=== PATIENT | female | born 1960 | race Caucasian/White ===

== ENCOUNTER 2018-04-25 13:17 | Inpatient (IN) | payer MEDICAID ==
[~2018-04-25] VITALS: Ht 165.1 cm; Wt 84.5 kg
[2018-04-25] MEDS ORDERED: ONDANSETRON 4 MG INJ IV STA (13:20)
[2018-04-25] MEDS ORDERED: morphine 4 MG/ML VIAL IV STA (13:20)
[2018-04-25 13:34] VITALS: Ht 165.1 cm; Wt 84.5 kg
--- NOTE | 2018-04-25 13:38 | ERD ---
ER Documentation Chief Complaint Chief Complaint lower back pain and bilaterial leg pain HPI 58-year-old woman referred here by PMD for further imaging and evaluation of mid and low back pain. Patient has recent diagnosis of metastatic breast carcinoma and suspicion is for metastasis to the lumbar spine. Patient states she has had 3 months of pain but it has been getting worse over the last 1 week. She denies fevers or chills, no cough, no calf or leg swelling, no vomiting or diarrhea, no complaints of chest pain. ROS All systems reviewed and are negative except as per history of present illness. Allergies Allergies: Coded Allergies: No Known Allergy (Unverified , 04/25/18) PMhx/Soc Metastatic breast CA FmHx Family History: No diabetes Physical Exam Vitals Vital Signs Date Temp Pulse Resp B/P (MAP) Pulse Ox O2 O2 Flow FiO2 Time Delivery Rate 04/25/18 98.2 102 22 133/91 99 13:34 (105) Physical Exam Const: Moderate discomfort, afebrile Head: Atraumatic Eyes: Normal Conjunctiva ENT: Normal External Ears, Nose and Mouth. Neck: Full range of motion. No meningismus. Resp: Clear to auscultation bilaterally Cardio: Regular rate and rhythm, no murmurs Abd: Soft, non tender, non distended. Normal bowel sounds Skin: No petechiae or rashes Back: No midline or flank tenderness Ext: No cyanosis, or edema Neur: Awake and alert x3, no focal deficits or facial asymmetry, pupils equal round reactive to light Psych: Normal Mood and Affect Result Diagram: 04/25/18 1330 04/25/18 1330 Results 24 hrs Laboratory Tests Test 04/25/18 13:30 White Blood Count 10.4 10^3/ul Red Blood Count 3.73 10^6/ul Hemoglobin 11.4 g/dl Hematocrit 34.6 % Mean Corpuscular Volume 92.8 fl Mean Corpuscular Hemoglobin 30.6 pg Mean Corpuscular Hemoglobin Concent 32.9 g/dl Red Cell Distribution Width 13.3 % Platelet Count 345 10^3/UL Mean Platelet Volume 9.0 fl Immature Granulocytes % 0.600 % Neutrophils % 65.9 % Lymphocytes % 19.8 % Monocytes % 11.2 % Eosinophils % 1.4 % Basophils % 1.1 % Nucleated Red Blood Cells % 0.2 /100WBC Immature Granulocytes # 0.060 10^3/ul Neutrophils # 6.9 10^3/ul Lymphocytes # 2.1 10^3/ul Monocytes # 1.2 10^3/ul Eosinophils # 0.2 10^3/ul Basophils # 0.1 10^3/ul Nucleated Red Blood Cells # 0.0 10^3/ul Prothrombin Time 13.9 Sec Prothrombin Time Ratio 1.1 INR International Normalized Ratio 1.06 Activated Partial Thromboplast Time 38.8 Sec Sodium Level 141 mmol/L Potassium Level 4.0 mmol/L Chloride Level 105 mmol/L Carbon Dioxide Level 22 mmol/L Anion Gap 14 Blood Urea Nitrogen 12 mg/dl Creatinine 0.69 mg/dl Est Glomerular Filtrat Rate mL/min > 60 mL/min Glucose Level 105 mg/dl Calcium Level 9.0 mg/dl Total Bilirubin 0.3 mg/dl Direct Bilirubin 0.00 mg/dl Indirect Bilirubin 0.3 mg/dl Aspartate Amino Transf (AST/SGOT) 61 IU/L Alanine Aminotransferase (ALT/SGPT) 35 IU/L Alkaline Phosphatase 231 IU/L Troponin I < 0.012 ng/ml Total Protein 6.8 g/dl Albumin 3.6 g/dl Globulin 3.20 g/dl Albumin/Globulin Ratio 1.12 Lipase 81 U/L Current Medications Medications Dose Sig/Diana Start Time Status Last (Trade) Ordered Route PRN Stop Time Admin Dose Reason Admin Morphine 4 mg ONCE STAT 04/25/18 DC 04/25/18 Sulfate IV 13:20 13:43 (morphine) 04/25/18 13:23 Ondansetron 4 mg ONCE STAT 04/25/18 DC 04/25/18 HCl (Zofran IV 13:20 13:43 Inj) 04/25/18 13:23 Sodium 1,000 ml @ Q1H ONCE 04/25/18 DC 04/25/18 Chloride 1,000 mls/hr IV 14:00 13:43 04/25/18 14:59 Procedures/MDM IV line was established patient was placed on hospital monitor rhythm strip revealed a sinus tachycardia at 110 bpm with upright P and T waves. Patient was afebrile EKG performed, read by me revealed a sinus tachycardia at 102 bpm, normal axis, narrow QRS complex, no concerning ST elevations or depressions noted I administered 1 L normal saline IV, morphine 4 mg IV, Zofran 4 mg IV. CBC and electrolytes are normal, liver function tests normal, troponin negative. Patient's pain improved while here although she has continued pain and she will be admitted for continued pain management and MRI with contrast of the thoracic and lumbar spine. Patient admitted to [facility] Diagnosis: Primary Impression: Metastatic breast carcinoma Additional Impression: Intractable pain Condition: CANDICE Mendez MD Apr 25, 2018 13:38
[2018-04-25] MEDS ORDERED: SOD CHLORIDE 0.9% 1,000 ML IV ONE (14:00)
--- NOTE | 2018-04-25 17:11 | CONS ---
Date/Time of Note Date/Time of Note DATE: 04/25/18 TIME: 17:10 Assessment/Plan Assessment/Plan Chief Complaint/Hosp Course METASTATIC BREAST Cancer ( PRIMARY IS IN THE L BREAST ) with MULTIPLE BONY METS, PULMONARY METS SEVERE T-L SPINE PAIN WITH DIFFICULTIES TO AMBULATE OBTAIN MRI T-L SPINE CONSIDER STEROIDS Obesity. Weight loss 60 pounds during the last 2 years by diet PMS. Myopia. Anemia chronic disease. Anxiety disorder. Posttraumatic stress disorder. 1Pain in the left forearm with a history of fracture of ulna and radius. Tachycardia Incomplete data Consultation Date/Type/Reason Admit Date/Time Date of Consultation: Apr 25, 2018 Type of Consultation: HEMEON Reason for Consultation METASTATIC BREAST CANCER PAIN Requesting Provider: RUSS JEROME MD Hx of Present Illness The pt is a 58 yo female with new diagnosed metastatic breast cancer Pt presented with L breast mass, wt loss, bony pain She underwent L breast mass BX by Dr Meneses which came as invasive ductal carcinoma one day [employer] Pt came to my office with intractable bony pain and was not able to walk. [facility] ambulance to be admitted for further w-up and treatment. According to her she was under the care of family physician for the last 3 years and was constantly evaluated About 10 days ago she felt pain in the interscapular area in the lumbosacral area which is very strong reaching to the 9-10/10 with a scale of 10/10. Pain is not controlled until she received the IV morphine. She underwent outpt CT CAT- which revealed large L breast mass and severe bony dis and pulm mets ALL info was send to the hospital ROS Subjective hx not possible: pt critical Constitutional: fatigue, nausea, poor po, weight change (She lost almost 60 pounds during the last 2 years mainly by eating less.); No no complaints, No improved, No chills, No diaphoresis, No disoriented, No febrile, No other Eyes: visual change (Decreased vision myopia), other; No no complaints, No pain, No discharge, No redness ENT: No no complaints, No bleeding, No pain, No congestion, No discharge, No dysphagia, No sore throat, No other Respiratory: shortness of breath; No no complaints, No pain, No cough, No pleuritic pain, No sputum, No wheezing, No other Cardiovascular: chest pain, lightheadedness, orthopenea, palpitations; No no complaints, No edema, No paroxysmal nocturnal dyspnea, No other Gastrointestinal: flatus, nausea, passing stool; No no complaints, No pain, No blood, No constipation, No decreased appetite, No diarrhea, No vomiting, No other Genitourinary: No no complaints, No bleeding, No dysuria, No discharge, No flank pain, No hematuria, No other Musculoskeletal: back pain, bone/joint pain, neck pain; No no complaints, No restricted range of motion, No swelling, No other Skin: pruritis; No no complaints, No bruising, No erythema, No laceration, No rash, No skin lesions, No other Neurologic: headache; No no complaints, No confusion, No dizziness, No focal-weakness, No syncope, No seizure, No other Endocrine: No no complaints, No polyuria, No polydypsia, No dry skin, No temp intolerance, No weight change, No other Lymphatic: No no complaints, No adenopathy, No tender nodes, No lymphadema, No other Immunologic: No no complaints, No immunodeficiency, No pruritis, No rhinitis, No urticaria, No other PMH/Family/Social PMH/Family/Social Past Medical History Medical History: GERD, high cholesterol, hypertension, other (Fracture of the left forearm.) Coded Allergies: No Known Allergy (Unverified , 04/25/18) Past Surgical History Past Surgical Hx: no surgical history Social History Alcohol Use: none Smoking Status: Never smoker Drug Use: none Social History Smoking Status: Never smoker Exam/Review of Systems Vital Signs Vitals Vital Signs Date Temp Pulse Resp B/P (MAP) Pulse Ox O2 O2 Flow FiO2 Time Delivery Rate 04/25/18 98.2 102 22 133/91 99 13:34 (105) Exam Constitutional: alert, oriented, well developed, distress, frail; No non-verbal, No other Psych: anxiety, depression; No no complaints, No nl mood/affect, No confusion, No suicidal, No other Head: normocephalic, atraumatic; No lacerations, No hematomas, No other Eyes: EOMI, nl lids, PERRL; No nl conjunctiva, No nl sclera, No icteric, No fundi, disc, No other ENMT: tympanic membranes; No nl external ears & nose, No nl lips & teeth, No nl nasal mucosa & septum, No mucosa pink and moist, No intubated, No other Neck: supple, non-tender, jvd, bruits; No masses, No thyromegaly, No nuchal rigidity, No other Respiratory: clear to auscultation, normal air movement, crackles/rales, diminished breath sounds, respirations; No congested cough, No intercostal retraction, No labored breathing, No tactile fremitus, No wheezing, No other Cardiovascular: regular rate and rhythm, bruits, jugular venous distention (JVD), systolic murmur; No nl pulses, No diastolic murmur, No edema, No gallop, No irregular rhythm, No murmurs/extra sounds, No rub, No S3, No S4, No other Gastrointestinal: soft, non-tender, bowel sounds, distended, hepatomegaly, other (Obesity with thick fatty layer of the anterior abdominal wall with no rebound.); No nl liver, spleen, No ascites, No firm, No mass, No rebound or guarding, No splenomegaly, No surgical scars, No tender Genitourinary - Female: nl adnexae, nl external genitalia, CVA tenderness; No CMT, No uterus, No other Musculoskeletal: joint tenderness, muscle tone, muscle weakness, spine non-ten dawna (Severe tenderness of the intrascapular area lumbosacral area with great difficulty to get up to move. 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; No nl mental status, No nl speech, No nl strength, No confused, No DTR's symmetric, No focal weakness, No lethargic, No numbness, No reflexes, No unresponsive, No other Skin: nl turgor; No rash or lesions, No diaphoresis, No ecchymosis, No laceration, No puncture, No other Lymph: No nl lymph nodes, No enlarged, No nontender, No other Results Result Diagram: 04/25/18 1330 04/25/18 1330 Results 24 hrs Laboratory Tests Test 04/25/18 13:30 White Blood Count 10.4 Red Blood Count 3.73 L Hemoglobin 11.4 L Hematocrit 34.6 L Mean Corpuscular Volume 92.8 Mean Corpuscular Hemoglobin 30.6 Mean Corpuscular Hemoglobin Concent 32.9 Red Cell Distribution Width 13.3 Platelet Count 345 Mean Platelet Volume 9.0 Immature Granulocytes % 0.600 H Neutrophils % 65.9 Lymphocytes % 19.8 Monocytes % 11.2 H Eosinophils % 1.4 Basophils % 1.1 Nucleated Red Blood Cells % 0.2 H Immature Granulocytes # 0.060 H Neutrophils # 6.9 Lymphocytes # 2.1 Monocytes # 1.2 H Eosinophils # 0.2 Basophils # 0.1 Nucleated Red Blood Cells # 0.0 Prothrombin Time 13.9 Prothrombin Time Ratio 1.1 INR International Normalized Ratio 1.06 Activated Partial Thromboplast Time 38.8 H Sodium Level 141 Potassium Level 4.0 Chloride Level 105 Carbon Dioxide Level 22 Anion Gap 14 H Blood Urea Nitrogen 12 Creatinine 0.69 Est Glomerular Filtrat Rate mL/min > 60 Glucose Level 105 Calcium Level 9.0 Total Bilirubin 0.3 Direct Bilirubin 0.00 Indirect Bilirubin 0.3 Aspartate Amino Transf (AST/SGOT) 61 H Alanine Aminotransferase (ALT/SGPT) 35 Alkaline Phosphatase 231 H Troponin I < 0.012 Total Protein 6.8 Albumin 3.6 Globulin 3.20 Albumin/Globulin Ratio 1.12 Lipase 81 DES DUNAWAY MD Apr 25, 2018 17:11
[2018-04-25 18:50] VITALS: BP 124/76; PULSE 111; RESP 18
[2018-04-25] MEDS: morphine 2 MG INJ IV PRN ×2 (19:01→23:13)
[2018-04-25 19:35] VITALS: BP 129/72; PULSE 100; RESP 20
[2018-04-25] MEDS: DEXAMETHASONE 4 MG/ML 1 ML INJ IV SCH (21:28)
[2018-04-25] MEDS: ANASTROZOLE 1 MG TAB PO SCH (21:35)
--- NOTE | 2018-04-25 23:23 | HP ---
Date/Time of Note Date/Time of Note DATE: 04/25/18 TIME: 23:06 Assessment/Plan VTE Prophylaxis Risk score (from Nsg)>0 risk: 2 Pharmacological prophylaxis: LMWH Lines/Catheters IV Catheter Type (from Nrsg): [place] [employer] line still needed: No Urinary Cath still in place: No Reason Cath still needed: urinary retention Assessment/Plan Assessment/Plan 1. Cancer of the left and left breast. Exact type at this time unknown. 2. Severe pain in the interscapular and lumbar sacral area most probably metastatic lesion possible femoral fracture. patologic? 3. Obesity. 4. Weight loss 60 pounds during the last 2 years by diet 5. PMS. 6. Myopia. 7. Anemia chronic disease. 8. Anxiety disorder. 9. Posttraumatic stress disorder. 10. Pain in the left forearm with a history of fracture of ulna and radius. 11. Tachycardia 12. Incomplete data HPI/ROS Admit Date/Time Admit Date/Time This 58 years old white female with about 10-day history of severe upper to lower back pain. Was diagnosed of having a breast cancer from the left side of the breast about 2-3 months ago proved by biopsy. According to her she was under the care of family physician for the last 3 years and was constantly evaluated but somehow tube was found only recently. About 10 days ago with no recent that she can point on she felt pain in the interscapular area in the lumbosacral area which is very strong reaching to the 9-10/10 with a scale of 10/10. I received a call from oncologist Dr. Palomino was placed to the patient as attending physician. All information taken from patient who is very emotional about the events with her happening now in [place] and [facility]. A conversation with interrupted multiple times when she was becoming very emotional tearful but her grandchildren are in the [facility] she is unable to see them. Pain is not controlled until she received the IV morphine. ROS Subjective hx not possible: pt critical Constitutional: fatigue, nausea, poor po, weight change (She lost almost 60 pounds during the last 2 years mainly by eating less.); No no complaints, No improved, No chills, No diaphoresis, No disoriented, No febrile, No other Eyes: visual change (Decreased vision myopia), other; No no complaints, No pain, No discharge, No redness ENT: No no complaints, No bleeding, No pain, No congestion, No discharge, No dysphagia, No sore throat, No other Respiratory: shortness of breath; No no complaints, No pain, No cough, No pleuritic pain, No sputum, No wheezing, No other Cardiovascular: chest pain, lightheadedness, orthopenea, palpitations; No no complaints, No edema, No paroxysmal nocturnal dyspnea, No other Gastrointestinal: flatus, nausea, passing stool; No no complaints, No pain, No blood, No constipation, No decreased appetite, No diarrhea, No vomiting, No other Genitourinary: No no complaints, No bleeding, No dysuria, No discharge, No flank pain, No hematuria, No other Musculoskeletal: back pain, bone/joint pain, neck pain; No no complaints, No restricted range of motion, No swelling, No other Skin: pruritis; No no complaints, No bruising, No erythema, No laceration, No rash, No skin lesions, No other Neurologic: headache; No no complaints, No confusion, No dizziness, No focal-weakness, No syncope, No seizure, No other Endocrine: No no complaints, No polyuria, No polydypsia, No dry skin, No temp intolerance, No weight change, No other Lymphatic: No no complaints, No adenopathy, No tender nodes, No lymphadema, No other Immunologic: No no complaints, No immunodeficiency, No pruritis, No rhinitis, No urticaria, No other PMH/Family/Social Past Medical History Medical History: GERD, high cholesterol, hypertension, other (Fracture of the left forearm.) Coded Allergies: No Known Allergy (Unverified , 04/25/18) Past Surgical History Past Surgical Hx: no surgical history Social History Alcohol Use: none Smoking Status: Never smoker Drug Use: none Exam/Review of Systems Vital Signs Vitals Vital Signs Date Temp Pulse Resp B/P (MAP) Pulse Ox O2 O2 Flow FiO2 Time Delivery Rate 04/25/18 98.0 100 20 129/72 99 Room Air 19:35 (91) Exam Constitutional: alert, oriented, well developed, distress, frail; No non-verbal, No other Psych: anxiety, depression; No no complaints, No nl mood/affect, No confusion, No suicidal, No other Head: normocephalic, atraumatic; No lacerations, No hematomas, No other Eyes: EOMI, nl lids, PERRL; No nl conjunctiva, No nl sclera, No icteric, No fundi, disc, No other ENMT: tympanic membranes; No nl external ears & nose, No nl lips & teeth, No nl nasal mucosa & septum, No mucosa pink and moist, No intubated, No other Neck: supple, non-tender, jvd, bruits; No masses, No thyromegaly, No nuchal rigidity, No other Respiratory: clear to auscultation, normal air movement, crackles/rales, diminished breath sounds, respirations; No congested cough, No intercostal retraction, No labored breathing, No tactile fremitus, No wheezing, No other Cardiovascular: regular rate and rhythm, bruits, jugular venous distention (JVD), systolic murmur; No nl pulses, No diastolic murmur, No edema, No gallop, No irregular rhythm, No murmurs/extra sounds, No rub, No S3, No S4, No other Gastrointestinal: soft, non-tender, bowel sounds, distended, hepatomegaly, other (Obesity with thick fatty layer of the anterior abdominal wall with no rebound.); No nl liver, spleen, No ascites, No firm, No mass, No rebound or guarding, No splenomegaly, No surgical scars, No tender Genitourinary - Female: nl adnexae, nl external genitalia, CVA tenderness; No CMT, No uterus, No other Musculoskeletal: joint tenderness, muscle tone, muscle weakness, spine non- tender (Severe tenderness of the intrascapular area lumbosacral area with great difficulty to get up to move. 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; No nl mental status, No nl speech, No nl strength, No confused, No DTR's symmetric, No focal weakness, No lethargic, No numbness, No reflexes, No unresponsive, No other Skin: nl turgor; No rash or lesions, No diaphoresis, No ecchymosis, No laceration, No puncture, No other Lymph: No nl lymph nodes, No enlarged, No nontender, No other Medications Medications Current Medications Morphine Sulfate (morphine) 2 mg Q4 PRN IV PAIN Last administered on 04/25/18at 19:01; Admin Dose 2 MG; Start 04/25/18 at 18:00 Anastrozole (Arimidex) 1 mg DAILY PO Last administered on 04/25/18at 21:35; Admin Dose 1 MG; Start 04/25/18 at 19:00 Dexamethasone (Decadron) 4 mg Q8 IV Last administered on 04/25/18at 21:28; Admin Dose 4 MG; Start 04/25/18 at 22:00 Results Result Diagram: 04/25/18 1330 04/25/18 1330 RUSS JEROME MD Apr 25, 2018 23:21
[2018-04-25] MEDS ORDERED: ZOLPIDEM 5 MG TAB PO PRN (23:30)
[2018-04-26 02:00] VITALS: BP 134/79; PULSE 100; RESP 20
[2018-04-26] MEDS: DEXAMETHASONE 4 MG/ML 1 ML INJ IV SCH ×3 (06:40→21:23)
[2018-04-26] MEDS: morphine 2 MG INJ IV PRN ×3 (06:40→19:19)
[2018-04-26 07:32] VITALS: BP 134/78; PULSE 96; RESP 18
--- NOTE | 2018-04-26 09:30 | PN ---
Date/Time of Note Date/Time of Note DATE: 04/26/18 TIME: 09:26 Assessment/Plan VTE Prophylaxis Risk score (from Nsg)>0 risk: 2 Pharmacological prophylaxis: LMWH Lines/Catheters IV Catheter Type (from Nrsg): Saline Lock Urinary Cath still in place: No Assessment/Plan Assessment/Plan 1. Cancer of the left and left breast. Exact type at this time unknown. 2. Severe pain in the interscapular and lumbar sacral area most probably metastatic lesion possible femoral fracture. patologic fracture of T9 with 60% of loss of height. Neurosurgical consult planned. 3. Obesity. 4. Weight loss 60 pounds during the last 2 years by diet 5. PMS. 6. Myopia. 7. Anemia chronic disease. 8. Anxiety disorder. 9. Posttraumatic stress disorder. 10. Pain in the left forearm with a history of fracture of ulna and radius. 11. Tachycardia 12. Incomplete data Subjective 24 Hr Interval Summary Free Text/Dictation Back pain persists. Slept well after morphine sulfate. Every movement is exacerbating pain is severely. Mri reviewed. T9 fracture with 60% of the loss of height acknowledged. Multiple metastasis. We discussed with Dr. Palomino. Neurosurgical consult. Subjective hx not possible: pt critical Constitutional: poor po; No no complaints, No improved, No chills, No diaphoresis, No disoriented, No febrile, No requiring IVF, No requiring O2, No other Eyes: discharge; No no complaints, No pain, No redness, No visual change, No other ENT: No no complaints, No bleeding, No pain, No congestion, No discharge, No dysphagia, No sore throat, No other Respiratory: No no complaints, No pain, No cough, No pleuritic pain, No shortness of breath, No sputum, No wheezing, No other Cardiovascular: chest pain, palpitations; No no complaints, No edema, No lightheadedness, No orthopenea, No paroxysmal nocturnal dyspnea, No other Gastrointestinal: constipation, decreased appetite; No no complaints, No pain, No blood, No diarrhea, No flatus, No nausea, No passing stool, No vomiting, No other Genitourinary: No no complaints, No bleeding, No dysuria, No discharge, No flank pain, No hematuria, No other Musculoskeletal: back pain, bone/joint pain, neck pain; No no complaints, No restricted range of motion, No swelling, No other Neurologic: No no complaints, No confusion, No dizziness, No focal-weakness, No headache, No syncope, No seizure, No other Psychological: anxiety, depression; No no complaints, No nl mood/affect, No confusion, No suicidal, No other Exam/Review of Systems Vital Signs Vitals Vital Signs Date Temp Pulse Resp B/P (MAP) Pulse Ox O2 O2 Flow FiO2 Time Delivery Rate 04/26/18 98.3 96 18 134/78 99 Room Air 07:32 (96) Exam Constitutional: alert, oriented, well developed, distress, frail, obese; No non-verbal, No other Psych: anxiety, depression; No no complaints, No nl mood/affect, No confusion, No suicidal, No other Head: normocephalic, atraumatic; No lacerations, No hematomas, No other Eyes: EOMI, nl lids, PERRL; No nl conjunctiva, No nl sclera, No icteric, No fundi, disc, No other ENMT: No nl external ears & nose, No nl lips & teeth, No nl nasal mucosa & septum, No mucosa pink and moist, No intubated, No tympanic membranes, No other Neck: supple; No non-tender, No jvd, No bruits, No masses, No thyromegaly, No nuchal rigidity, No other Respiratory: diminished breath sounds; No clear to auscultation, No normal air movement, No congested cough, No crackles/rales, No intercostal retraction, No labored breathing, No respirations, No tactile fremitus, No wheezing, No other Cardiovascular: bruits, edema; No regular rate and rhythm, No nl pulses, No diastolic murmur, No gallop, No irregular rhythm, No jugular venous distention (JVD), No murmurs/extra sounds, No rub, No systolic murmur, No S3, No S4, No other Gastrointestinal: soft, nl liver, spleen, distended; No non-tender, No ascites, No bowel sounds, No firm, No hepatomegaly, No mass, No rebound or guarding, No splenomegaly, No surgical scars, No tender, No other Musculoskeletal: joint tenderness, muscle tone, muscle weakness; No nl extremities to inspection, No nl gait and stance, No range of motion, No spine non-tender, No swelling, No other Extremities: normal pulses, edema; No calf tenderness, No cyanosis, No clubbing, No pitting pedal edema, No palpable cord, No tenderness, No other 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: GUARD IMMIGRATION 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, confused, numbness; No nl mental status, No nl speech, No nl strength, No DTR's symmetric, No focal weakness, No lethargic, No reflexes, No unresponsive, No other Skin: nl turgor Medications Medications Current Medications Morphine Sulfate (morphine) 2 mg Q4 PRN IV PAIN Last administered on 04/26/18at 06:40; Admin Dose 2 MG; Start 04/25/18 at 18:00 Anastrozole (Arimidex) 1 mg DAILY PO Last administered on 04/25/18at 21:35; Admin Dose 1 MG; Start 04/25/18 at 19:00 Dexamethasone (Decadron) 4 mg Q8 IV Last administered on 04/26/18at 06:40; Admin Dose 4 MG; Start 04/25/18 at 22:00 Zolpidem Tartrate (Ambien) 10 mg HS PRN PO INSOMNIA; Start 04/25/18 at 23:30 Lorazepam (Ativan) 0.5 mg TID PRN PO ANXIETY; Start 04/25/18 at 23:30 Results Result Diagram: 04/26/18 0438 04/26/188 Results 24 hrs Laboratory Tests Test 04/25/18 13:30 04/25/18 21:27 04/26/18 04:37 04/26/18 04:38 White Blood Count 10.4 7.7 # Red Blood Count 3.73 L 3.56 L Hemoglobin 11.4 L 10.9 L Hematocrit 34.6 L 33.8 L Mean Corpuscular 92.8 94.9 Volume Mean Corpuscular 30.6 30.6 Hemoglobin Mean Corpuscular 32.9 32.2 Hemoglobin Concent Red Cell 13.3 13.4 Distribution Width Platelet Count 345 332 Mean Platelet Volume 9.0 9.3 Immature 0.600 H 1.000 H Granulocytes % Neutrophils % 65.9 81.0 H Lymphocytes % 19.8 13.9 L Monocytes % 11.2 H 3.0 Eosinophils % 1.4 0.3 Basophils % 1.1 0.8 Nucleated Red Blood 0.2 H 0.0 Cells % Immature 0.060 H 0.080 H Granulocytes # Neutrophils # 6.9 6.2 Lymphocytes # 2.1 1.1 Monocytes # 1.2 H 0.2 L Eosinophils # 0.2 0.0 Basophils # 0.1 0.1 Nucleated Red Blood 0.0 0.0 Cells # Prothrombin Time 13.9 Prothrombin Time 1.1 Ratio INR International 1.06 Normalized Ratio Activated 38.8 H Partial Thromboplast Time Sodium Level 141 143 Potassium Level 4.0 4.9 Chloride Level 105 109 Carbon Dioxide Level 22 23 Anion Gap 14 H 11 Blood Urea Nitrogen 12 11 Creatinine 0.69 0.56 Est Glomerular > 60 > 60 Filtrat Rate mL/min Glucose Level 105 165 Calcium Level 9.0 8.6 Total Bilirubin 0.3 Direct Bilirubin 0.00 Indirect Bilirubin 0.3 Aspartate Amino 61 H Transf (AST/SGOT) Alanine 35 Aminotransferase (AL T/SGPT) Alkaline Phosphatase 231 H Troponin I < 0.012 Total Protein 6.8 Albumin 3.6 Globulin 3.20 Albumin/Globulin 1.12 Ratio Lipase 81 Bedside Glucose 132 Iron Level 30 L Total Iron Binding 226 L Capacity Percent Iron 13 L Saturation Hemoglobin A1c 5.7 Magnesium Level 1.9 Vitamin D 31.7 1,25-Dihydroxy Thyroid Stimulating 0.710 Hormone (TSH) Test 04/26/18 08:20 Bedside Glucose 134 RUSS JEROME MD Apr 26, 2018 09:30
[2018-04-26] MEDS: ENOXAPARIN 40 MG/0.4 ML SYG SC SCH (09:52)
[2018-04-26] MEDS: ANASTROZOLE 1 MG TAB PO SCH (09:52)
--- NOTE | 2018-04-26 13:58 | RADRPT ---
Echocardiogram Report Patient Name: HANG VILLEDA Gender: Female Date: 1960 Study Date: 26-Apr-2018 Silk Screener: Vikash Perkins [facility] Location: [address] Ref. Physician: RUSS JEROME Quality: Adequate Procedures: Transthoracic echocardiogram with complete 2D, M-Mode, and doppler examination. Indications: Tachycardia. 2D/M Mode Doppler Measurement Value Normal Ranges Measurement Value Normal Ranges LVIDd 2D 3.6 3.5 - 5.6 cm AV Peak Je 1.5 m/sec LVIDs 2D 2.3 2.1 - 4.1 cm AV Peak PG 9.0 mmHg FS 2D 34.2 % LVOT Peak Je 1.4 m/sec LVPWd 2D 1.0 0.6 - 1.1 cm LVOT Peak PG 8.0 mmHg IVSd 2D 1.4 0.6 - 1.1 cm MV E Peak Je 0.6 m/sec IVS/LVPW 2D 1.4 MV A Peak Je 0.7 m/sec AoR Diam 2D 2.9 2.0 - 3.7 cm MV E/A 0.8 LA/Ao 2D 1 0 - 1 MV Decel Time 127 msec EDV 2D 45.5 cm3 MV E/A 0.8 ESV 2D 13.0 cm3 TR Peak Je 2.4 m/sec LA Dimen 2D 3.1 2.3 - 4.0 cm TR Peak PG 22.0 mmHg RVSP 25.0 mmHg Findings Left Ventricle: Normal left ventricular systolic function. Normal left ventricular cavity size. Sigmoid septum. Ejection fraction is visually estimated at 65 - 70 %. Tissue Doppler/Mitral Doppler indices are consistent with impaired relaxation (Stage I diastolic dysfunction). Right Ventricle: Normal right ventricular size. Normal right ventricular systolic function. Left Atrium: The left atrium is normal in size. Right Atrium: The right atrium is normal in size. Mitral Valve: Mild mitral leaflet calcification. Mild mitral annular calcification. Trace mitral regurgitation. Aortic Valve: No significant aortic stenosis or insufficiency. Aortic cusps appear mildly calcified. Trace aortic valve regurgitation. Tricuspid Valve: Normal appearance of the tricuspid valve. Estimated peak PA systolic pressure 25 mmHg. There is trace tricuspid regurgitation. Pulmonic Valve: Pulmonic valve not well visualized. There is trace pulmonic regurgitation. Pericardium: Normal pericardium with no significant pericardial effusion. Left pleural effusion seen. Aorta: Normal aortic root. IVC: Normal size and normal respiratory collapse consistent with normal right atrial pressure. Conclusions The left ventricle is normal in size and systolic function. Estimated left ventricular ejection fraction of 65-70%. Grade 1 diastolic dysfunction. Electronically Signed By: Sidney Gutierrez 26-Apr-2018 13:58:10 -0800 Patient Name: HANG VILLEDA Study Date: 26-Apr-2018 [id number]
[2018-04-26 14:09] VITALS: BP 140/84; PULSE 99; RESP 18
[2018-04-26 15:00] VITALS: BP 158/88; PULSE 88; RESP 18
--- NOTE | 2018-04-26 17:35 | CONS ---
Date/Time of Note Date/Time of Note DATE: 04/26/18 TIME: 17:31 Assessment/Plan Assessment/Plan Chief Complaint/Hosp Course Assessment: Sinus tachycardia - appears physiologic secondary to pain Hypertension Metastatic breast cancer Back pain - metastatic disease to the spine Recommendations: -resume on outpatient benazepril 5mg daily, adjust as needed -follow up oncology Consultation Date/Type/Reason Admit Date/Time This 58 years old white female with about 10-day history of severe upper to lower back pain. Was diagnosed of having a breast cancer from the left side of the breast about 2-3 months ago proved by biopsy. According to her she was under the care of family physician for the last 3 years and was constantly evaluated but somehow tube was found only recently. About 10 days ago with no recent that she can point on she felt pain in the interscapular area in the lumbosacral area which is very strong reaching to the 9-10/10 with a scale of 10/10. I received a call from oncologist Dr. Palomino was placed to the patient as attending physician. All information taken from patient who is very emotional about the events with her happening now in [place] and [facility]. A conversation with interrupted multiple times when she was becoming very emo tional tearful but her grandchildren are in the [place] she is unable to see them. Pain is not controlled until she received the IV morphine. Type of Consultation: Cardiology Reason for Consultation tachycardia Requesting Provider: RUSS JEROME MD Hx of Present Illness The patient is a 58 year-old female with metastatic breast cancer who presents with back pain. MRI shows metastatic disease to the spine. She is noted to be tachycardia with EKG showing sinus tachycardia. Transthoracic echocardiogram shows normal LVEF 65-70%. 14 point review of systems negative other than per HPI. Past Medical History Medical History: hypertension Family History Significant Family History: no pertinent family hx Social History Alcohol Use: none Smoking Status: Never smoker Drug Use: none Exam/Review of Systems Vital Signs Vitals Vital Signs Date Temp Pulse Resp B/P (MAP) Pulse Ox O2 O2 Flow FiO2 Time Delivery Rate 04/26/18 98.8 88 18 158/88 100 15:00 (111) 04/26/18 Room Air 14:09 Exam Constitutional: alert, well developed Psych: no complaints, nl mood/affect Head: normocephalic, atraumatic Eyes: nl conjunctiva, nl lids ENMT: nl external ears & nose, nl nasal mucosa & septum Neck: supple, non-tender Respiratory: clear to auscultation, normal air movement Cardiovascular: regular rate and rhythm Gastrointestinal: soft, non-tender Musculoskeletal: nl extremities to inspection Extremities: No cyanosis, No clubbing, No edema 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: nl mental status, nl speech Medications Medications Current Medications Morphine Sulfate (morphine) 2 mg Q4 PRN IV PAIN Last administered on 04/26/18at 13:46; Admin Dose 2 MG; Start 04/25/18 at 18:00 Anastrozole (Arimidex) 1 mg DAILY PO Last administered on 04/26/18 09:52; Admin Dose 1 MG; Start 04/25/18 at 19:00 Dexamethasone (Decadron) 4 mg Q8 IV Last administered on 04/26/18at 13:43; Admin Dose 4 MG; Start 04/25/18 at 22:00 Zolpidem Tartrate (Ambien) 10 mg HS PRN PO INSOMNIA; Start 04/25/18 at 23:30 Lorazepam (Ativan) 0.5 mg TID PRN PO ANXIETY; Start 04/25/18 at 23:30 Enoxaparin Sodium (Lovenox) 40 mg DAILY SC Last administered on 04/26/18at 09:52; Admin Dose 40 MG; Start 04/26/18 at 09:30 Results Result Diagram: 04/26/188 04/26/18437 Results 24 hrs Laboratory Tests Test 04/25/18 21:27 04/26/18 04:37 04/26/18 04:38 04/26/18 08:20 Bedside Glucose 132 134 Iron Level 30 L Total Iron Binding 226 L Capacity Percent Iron 13 L Saturation White Blood Count 7.7 # Red Blood Count 3.56 L Hemoglobin 10.9 L Hematocrit 33.8 L Mean Corpuscular 94.9 Volume Mean Corpuscular 30.6 Hemoglobin Mean Corpuscular 32.2 Hemoglobin Concent Red Cell 13.4 Distribution Width Platelet Count 332 Mean Platelet Volume 9.3 Immature 1.000 H Granulocytes % Neutrophils % 81.0 H Lymphocytes % 13.9 L Monocytes % 3.0 Eosinophils % 0.3 Basophils % 0.8 Nucleated Red Blood 0.0 Cells % Immature 0.080 H Granulocytes # Neutrophils # 6.2 Lymphocytes # 1.1 Monocytes # 0.2 L Eosinophils # 0.0 Basophils # 0.1 Nucleated Red Blood 0.0 Cells # Sodium Level 143 Potassium Level 4.9 Chloride Level 109 Carbon Dioxide Level 23 Anion Gap 11 Blood Urea Nitrogen 11 Creatinine 0.56 Est Glomerular > 60 Filtrat Rate mL/min Glucose Level 165 Hemoglobin A1c 5.7 Calcium Level 8.6 Magnesium Level 1.9 Vitamin D 31.7 1,25-Dihydroxy Thyroid Stimulating 0.710 Hormone (TSH) Test 04/26/18 12:37 Bedside Glucose 140 NEGRITA GARLAND MD Apr 26, 2018 17:35
--- NOTE | 2018-04-26 18:00 | CONS ---
Date/Time of Note Date/Time of Note DATE: 04/26/18 TIME: 17:55 Assessment/Plan Assessment/Plan Chief Complaint/Hosp Course METASTATIC BREAST Cancer ( PRIMARY IS IN THE L BREAST ) with MULTIPLE BONY METS, PULMONARY METS SEVERE T-L SPINE PAIN WITH DIFFICULTIES TO AMBULATE MRI T-L SPINE- Diffuse osseous metastatic disease of the visualized thoracic spine (T10 - T12), the entire lumbar spine, sacrum, and bilateral iliac bones. Expansion of the posterior T9 vertebral body resulting in central canal stenosis with AP diameter measuring 8 mm. STARTED ON IV STEROIDS STARTED ON AI YESTERDAY PAIN CONTROL RADONC AND NEUROSURG EVAL Obesity. Weight loss 60 pounds during the last 2 years by diet PMS. Myopia. Anemia chronic disease. Anxiety disorder. Posttraumatic stress disorder. 1Pain in the left forearm with a history of fracture of ulna and radius. Tachycardia Incomplete data Consultation Date/Type/Reason Admit Date/Time Apr 25, 2018 at 14:37 Initial Consult Date 04/25/18 Type of Consultation: HEMEON Requesting Provider: RUSS JEROME MD 24 HR Interval Summary Free Text/Dictation ALL NOTED D/W STAFF D/W DR JEROME, DR BARON AND DR MAXWELL MRI NOTED - STARTED ON STEROIDS Exam/Review of Systems Vital Signs Vitals Vital Signs Date Temp Pulse Resp B/P (MAP) Pulse Ox O2 O2 Flow FiO2 Time Delivery Rate 04/26/18 98.8 88 18 158/88 100 15:00 (111) 04/26/18 Room Air 14:09 Exam Constitutional: alert, oriented, well developed, distress, frail; No non-verbal, No other Psych: anxiety, depression; No no complaints, No nl mood/affect, No confusion, No suicidal, No other Head: normocephalic, atraumatic; No lacerations, No hematomas, No other Eyes: EOMI, nl lids, PERRL; No nl conjunctiva, No nl sclera, No icteric, No fundi, disc, No other ENMT: tympanic membranes; No nl external ears & nose, No nl lips & teeth, No nl nasal mucosa & septum, No mucosa pink and moist, No intubated, No other Neck: supple, non-tender, jvd, bruits; No masses, No thyromegaly, No nuchal rigidity, No other Respiratory: clear to auscultation, normal air movement, crackles/rales, diminished breath sounds, respirations; No congested cough, No intercostal retraction, No labored breathing, No tactile fremitus, No wheezing, No other Cardiovascular: regular rate and rhythm, bruits, jugular venous distention (JVD), systolic murmur; No nl pulses, No diastolic murmur, No edema, No gallop, No irregular rhythm, No murmurs/extra sounds, No rub, No S3, No S4, No other Gastrointestinal: soft, non-tender, bowel sounds, distended, hepatomegaly, other (Obesity with thick fatty layer of the anterior abdominal wall with no rebound.); No nl liver, spleen, No ascites, No firm, No mass, No rebound or guarding, No splenomegaly, No surgical scars, No tender Genitourinary - Female: nl adnexae, nl external genitalia, CVA tenderness; No CMT, No uterus, No other Musculoskeletal: joint tenderness, muscle tone, muscle weakness, spine non- tender (Severe tenderness of the intrascapular area lumbosacral area with great difficulty to get up to move. 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: PRODUCT/INDUSTRY CONSULTANT 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; No nl mental status, No nl speech, No nl strength, No confused, No DTR's symmetric, No focal weakness, No lethargic, No numbness, No reflexes, No unresponsive, No other Skin: nl turgor; No rash or lesions, No diaphoresis, No ecchymosis, No laceration, No puncture, No other Lymph: No nl lymph nodes, No enlarged, No nontender, No other Medications Medications Current Medications Morphine Sulfate (morphine) 2 mg Q4 PRN IV PAIN Last administered on 04/26/18at 13:46; Admin Dose 2 MG; Start 04/25/18 at 18:00 Anastrozole (Arimidex) 1 mg DAILY PO Last administered on 04/26/18at 09:52; Admin Dose 1 MG; Start 04/25/18 at 19:00 Dexamethasone (Decadron) 4 mg Q8 IV Last administered on 04/26/18at 13:43; Admin Dose 4 MG; Start 04/25/18 at 22:00 Zolpidem Tartrate (Ambien) 10 mg HS PRN PO INSOMNIA; Start 04/25/18 at 23:30 Lorazepam (Ativan) 0.5 mg TID PRN PO ANXIETY; Start 04/25/18 at 23:30 Enoxaparin Sodium (Lovenox) 40 mg DAILY SC Last administered on 04/26/18at 09:52; Admin Dose 40 MG; Start 04/26/18 at 09:30 Results Result Diagram: 04/26/1843704/26/18437 Results 24 hrs Laboratory Tests Test 04/25/18 21:27 04/26/18 04:37 04/26/18 04:38 04/26/18 08:20 Bedside Glucose 132 134 Iron Level 30 L Total Iron Binding 226 L Capacity Percent Iron 13 L Saturation White Blood Count 7.7 # Red Blood Count 3.56 L Hemoglobin 10.9 L Hematocrit 33.8 L Mean Corpuscular 94.9 Volume Mean Corpuscular 30.6 Hemoglobin Mean Corpuscular 32.2 Hemoglobin Concent Red Cell 13.4 Distribution Width Platelet Count 332 Mean Platelet Volume 9.3 Immature 1.000 H Granulocytes % Neutrophils % 81.0 H Lymphocytes % 13.9 L Monocytes % 3.0 Eosinophils % 0.3 Basophils % 0.8 Nucleated Red Blood 0.0 Cells % Immature 0.080 H Granulocytes # Neutrophils # 6.2 Lymphocytes # 1.1 Monocytes # 0.2 L Eosinophils # 0.0 Basophils # 0.1 Nucleated Red Blood 0.0 Cells # Sodium Level 143 Potassium Level 4.9 Chloride Level 109 Carbon Dioxide Level 23 Anion Gap 11 Blood Urea Nitrogen 11 Creatinine 0.56 Est Glomerular > 60 Filtrat Rate mL/min Glucose Level 165 Hemoglobin A1c 5.7 Calcium Level 8.6 Magnesium Level 1.9 Vitamin D 31.7 1,25-Dihydroxy Thyroid Stimulating 0.710 Hormone (TSH) Test 04/26/18 12:37 04/26/18 17:23 Bedside Glucose 140 [address] [place] [id number] Radiology Main Line: [phone] DIAGNOSTIC IMAGING REPORT Patient: LEANA VILLEDA : 1960 Age: 58 Sex: F [id number] [id number] DOS: 04/25/18 1334 Ordering MD: CANDICE HERNANDEZ MD Location: [facility] Room/Bed: 410-B PROCEDURE: MR Lumbar Spine with and without contrast CLINICAL INDICATION: Back pain. COMPARISON: Correlated with MRI thoracic spine 04/25/2018. TECHNIQUE: MRI examination of the lumbar spine was obtained utilizing the following sequences: Sagittal and axial T1, axial T2-weighted, sagittal T2 fat saturation, sagittal STIR, and postcontrast sagittal and axial images. The patient received tenth ml of ProHance intravenous contrast without complication. FINDINGS: Segmentation: For this report, the last well formed disc is labeled L5-S1. Alignment: Slight retrospondylolisthesis of L5 on S1. Vertebral bodies: Expansion of the posterior T10 vertebral body with resultant central canal stenosis and AP diameter measuring 8 mm. Refer to MRI thoracic spine dictation of 04/25/2018 for additional details. Bone marrow: Diffuse osseous metastasis of the visualized thoracic spine (T10 - T12), the entire lumbar spine, sacrum, and bilateral iliac bones. Distal cord and conus: Normal. No suspicious enhancement. The conus terminates at L1. Cauda equina: Normal. T12-L1 : There is normal disc height and signal. No disc herniation. There is mild facet arthropathy. No central canal or foraminal narrowing. L1-L2 : There is normal disc height and signal. Trace bulge of the posterior annulus without disc herniation. There is bilateral facet arthropathy. No central canal or foraminal narrowing. L2-L3 : There is normal disc height and signal. No disc herniation. There is bilateral facet arthropathy and ligamentum flavum infolding. No central canal or foraminal narrowing L3-L4 : There is mild disc height loss with preserved disc signal. 2 mm diffuse disc bulge asymmetric to the right foraminal and lateral zones without disc herniation. There is mild lateral facet arthropathy and ligamentum flavum infolding. Mild left lateral recess narrowing secondary to ligamentum flavum infolding and facet arthropathy. without contact of the traversing right L4 nerve root. No central canal stenosis. Moderate left and mild to moderate right foraminal narrowing. L4-L5 : There is normal disc height and signal. Small diffuse disc bulge without herniation. There is bilateral facet arthropathy. Mild left lateral recess narrowing secondary to ligamentum flavum infolding and facet arthropathy. No central canal stenosis. Mild left foraminal narrowing. L5-S1 : There is normal disc height and signal. 2 mm disc unfolding more pronounced to the right of midline secondary to a retrospondylolisthesis of L5 on S1. There is bilateral facet arthropathy. No central canal stenosis. Mod erate right foraminal narrowing secondary to facet arthropathy and 3 mm disc bulge extending into the inferior foramen. Mild left foraminal narrowing. IMPRESSION: 1. Diffuse osseous metastatic disease of the visualized thoracic spine (T10 - T12), the entire lumbar spine, sacrum, and bilateral iliac bones. 2. Expansion of the posterior T9 vertebral body resulting in central canal stenosis with AP diameter measuring 8 mm. Refer to dedicated MRI of the thoracic spine dated 04/25/2018. 3. L3-4: Mild left lateral recess narrowing, moderate left and mild to moderate right foraminal narrowing. 4. L4-5: Mild left lateral recess narrowing, mild left foraminal narrowing. 5. L5-S1: Moderate right mild left foraminal narrowing. RPTAT: HRSR Physician Fadia Date Time Electronically viewed and signed by Physician Fadia on 04/26/2018 03:07 RR/ CC: CANDICE HERNANDEZ MD [phone] [place] [id number] Radiology Main Line: [phone] DIAGNOSTIC IMAGING REPORT Patient: LEANA VILLEDA : 1960 Age: 58 Sex: F MR #: [id number] DOS: 04/25/18 1334 Ordering MD: CANDICE HERNANDEZ MD Location: [facility] [place] Room/Bed: [facility] PROCEDURE: MR thoracic spine with and without contrast. CLINICAL INDICATION: Back pain. TECHNIQUE: The study was performed utilizing a Signa HDxt 3 Johana magnet. The following pulse sequences were obtained: Axial T1, axial T2, sagittal T1, sagittal T2 and sagittal inversion recovery images. After the administration of 10 cc ProHance intravenous contrast, sagittal T1-weighted images with fat saturation and axial T1-weighted images without fat saturation were obtained. Images were reviewed on a PACS workstation. Study is limited by patient motion. COMPARISON: None. FINDINGS: There is diffuse heterogeneous marrow signal intensity. There are mild compression deformities of the T3, T4, T5, T6, 27, T11 and T12 vertebral bodies. There is a moderate compression deformity of the T9 vertebral body with up to 60% loss in vertebral body height. There is bony expansion posteriorly especially involving the T3, T4, T5, T7 T9, T10, T11 and T12 vertebral bodies resulting in mild to moderate central canal stenosis. There is mass effect upon the thoracic cord. The disk height and signals are within normal limits. There is no disk protrusion or extrusion. The thoracic spinal cord is of normal caliber and signal. There is no abnormal enhancement. IMPRESSION: Diffuse heterogeneous marrow signal compatible with metastatic disease. There is resultant bony expansion at multiple levels resulting in mild to moderate central canal stenosis. There is mass effect upon the thoracic cord without evidence of cord compression. Multilevel mild to moderate chronic appearing compression deformities of the thoracic spine, most prominent at T9. .Rigoberto Locke MD, MD Date Time Electronically viewed and signed by .Rigoberto Locke MD, MD on 04/26/2018 02:33 .T/ CC: CANDICE HERNANDEZ MD [id number] DES DUNAWAY MD Apr 26, 2018 18:00
[2018-04-26 19:21] VITALS: BP 124/74; PULSE 90; RESP 18
--- NOTE | 2018-04-26 20:21 | CONS ---
Date/Time of Note Date/Time of Note DATE: 04/26/18 TIME: 20:06 Assessment/Plan Assessment/Plan Additional Assessment/Plan MRI shows evidence of multiple spinal metastases involving every lumbar spinal level and multiple thoracic spine segments (T3,4,5,7,9,10,11, and 12); there is kyphosis and vertebral body collapse (pathologic fracture). The greatest area of compression is at T9 with significant epidural spinal compression and >50% loss of vertebral height. The patient is neurologically intact and has no myelopathic signs. There is no overt mechanical instability, though there is kyphosis. Therefore I do not recommend any (open) surgical intervention at this time. I recommend urgent radiation oncology consultation. The patient's kyphosis, stenosis, and vertebral body collapse is worst at T9, and the patient could conceivably benefit from kyphoplasty at this level if adequate pain control is not obtained after commencement of XRT. Thank you Consultation Date/Type/Reason Admit Date/Time Apr 25, 2018 at 14:37 Date of Consultation: Apr 26, 2018 Type of Consultation: neurological surgery Reason for Consultation multiple thoracic and lumbar spine mets Hx of Present Illness The patient is a 58 year old female who was in usual state of health until three months ago, when she began to complain of midline back pain. Three or four days ago the patient states back pain became unbearable. She was subsequently diagnosed with breast CA and was found to have widespread metastatic disease, with diffuse bony mets throughout thoracic and lumbar spine. The patient has been admitted for pain control. She denies any neurologic complaints, with intact bilateral lower extremity strength and intact sensation. She denies any bowel or bladder complaints as well. Past Medical History Medical History: hypertension Social History Alcohol Use: none Smoking Status: Never smoker Drug Use: none Exam/Review of Systems Vital Signs Vitals Vital Signs Date Temp Pulse Resp B/P (MAP) Pulse Ox O2 O2 Flow FiO2 Time Delivery Rate 04/26/18 97.8 90 18 124/74 97 Room Air 19:21 (91) Exam Constitutional: alert, oriented, well developed Psych: no complaints, nl mood/affect Head: normocephalic, atraumatic Eyes: nl conjunctiva, EOMI, nl lids, nl sclera ENMT: nl external ears & nose, nl lips & teeth, mucosa pink and moist Neck: supple, non-tender 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: BLIND INSTALLER 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, nl mental status, nl speech, nl strength Skin: nl turgor Medications Medications Current Medications Morphine Sulfate (morphine) 2 mg Q4 PRN IV PAIN Last administered on 04/26/18at 19:19; Admin Dose 2 MG; Start 04/25/18 at 18:00 Anastrozole (Arimidex) 1 mg DAILY PO Last administered on 04/26/18at 09:52; Admin Dose 1 MG; Start 04/25/18 at 19:00 Dexamethasone (Decadron) 4 mg Q8 IV Last administered on 04/26/18at 13:43; Admin Dose 4 MG; Start 04/25/18 at 22:00 Zolpidem Tartrate (Ambien) 10 mg HS PRN PO INSOMNIA; Start 04/25/18 at 23:30 Lorazepam (Ativan) 0.5 mg TID PRN PO ANXIETY; Start 04/25/18 at 23:30 Enoxaparin Sodium (Lovenox) 40 mg DAILY SC Last administered on 04/26/18at 09:52; Admin Dose 40 MG; Start 04/26/18 at 09:30 Benazepril HCl (Lotensin) 5 mg DAILY PO ; Start 04/27/18 at 09:00 Results Result Diagram: 04/26/18 0438 04/26/18 0438 Results 24 hrs Laboratory Tests Test 04/25/18 21:27 04/26/18 04:37 04/26/18 04:38 04/26/18 08:20 Bedside Glucose 132 134 Iron Level 30 L Total Iron Binding 226 L Capacity Percent Iron 13 L Saturation White Blood Count 7.7 # Red Blood Count 3.56 L Hemoglobin 10.9 L Hematocrit 33.8 L Mean Corpuscular 94.9 Volume Mean Corpuscular 30.6 Hemoglobin Mean Corpuscular 32.2 Hemoglobin Concent Red Cell 13.4 Distribution Width Platelet Count 332 Mean Platelet Volume 9.3 Immature 1.000 H Granulocytes % Neutrophils % 81.0 H Lymphocytes % 13.9 L Monocytes % 3.0 Eosinophils % 0.3 Basophils % 0.8 Nucleated Red Blood 0.0 Cells % Immature 0.080 H Granulocytes # Neutrophils # 6.2 Lymphocytes # 1.1 Monocytes # 0.2 L Eosinophils # 0.0 Basophils # 0.1 Nucleated Red Blood 0.0 Cells # Sodium Level 143 Potassium Level 4.9 Chloride Level 109 Carbon Dioxide Level 23 Anion Gap 11 Blood Urea Nitrogen 11 Creatinine 0.56 Est Glomerular > 60 Filtrat Rate mL/min Glucose Level 165 Hemoglobin A1c 5.7 Calcium Level 8.6 Magnesium Level 1.9 Vitamin D 31.7 1,25-Dihydroxy Thyroid Stimulating 0.710 Hormone (TSH) Test 04/26/18 12:37 04/26/18 17:23 Bedside Glucose 140 211 Imaging Laboratory Tests Test 04/26/18 04:37 04/26/18 04:38 Iron Level 30 ug/dl (35-150) L Total Iron Binding Capacity 226 ug/dl (241-421) L Calcium Level 8.6 mg/dl (8.4-10.2) Magnesium Level 1.9 mg/dl (1.7-2.5) Vitamin D 1,25-Dihydroxy 31.7 ng/ml (30-100) YUSUF NOLASCO MD Apr 26, 2018 20:20
[2018-04-27] MEDS: morphine 2 MG INJ IV PRN ×5 (00:24→18:52)
[2018-04-27 03:00] VITALS: BP 155/78; PULSE 74; RESP 18
[2018-04-27] MEDS: DEXAMETHASONE 4 MG/ML 1 ML INJ IV SCH ×3 (05:22→22:42)
[2018-04-27 07:43] VITALS: BP 133/83; PULSE 80; RESP 18
[2018-04-27] MEDS: ANASTROZOLE 1 MG TAB PO SCH (08:51)
[2018-04-27] MEDS: ENOXAPARIN 40 MG/0.4 ML SYG SC SCH (08:51)
--- NOTE | 2018-04-27 09:05 | PN ---
Date/Time of Note Date/Time of Note DATE: 04/27/18 TIME: 09:00 Assessment/Plan VTE Prophylaxis Risk score (from Ns)>0 risk: 2 [place]CD applied [place]from [facility] [place] SCD contraindicated: low risk/ambulating Pharmacological prophylaxis: NA/contraindicated, other (Fractured vertebra.) Pharm contraindication: low risk/ambulating Lines/Catheters IV Catheter Type (from [place]): Saline Lock Central line still needed: No Urinary Cath still in place: No Reason Cath still needed: urinary retention Assessment/Plan Assessment/Plan 1. Cancer of the left breast. Exact type at this time unknown. 2. Severe pain in the interscapular and lumbar sacral area most probably metastatic lesion possible femoral fracture. pathologic fracture of T9 with 60% of loss of height. Neurosurgical consult acknowledged. Radiation oncology consult. Kyphoplasty as a planned procedure is active in a list. 3. Obesity. 4. Weight loss 60 pounds during the last 2 years by diet 5. PMS. 6. Myopia. 7. Anemia chronic disease. 8. Anxiety disorder. 9. Posttraumatic stress disorder. 10. Pain in the left forearm with a history of fracture of ulna and radius. 11. Tachycardia 12. Incomplete data Subjective 24 Hr Interval Summary Free Text/Dictation Severe pain in the upper and lower back worsened by moving. Subjective hx not possible: pt critical status Constitutional: requiring IVF, requiring O2; No no complaints, No improved, No chills, No diaphoresis, No disoriented, No febrile, No poor po, No other Eyes: no complaints; No pain, No discharge, No redness, No visual change, No other ENT: No no complaints, No bleeding, No pain, No congestion, No discharge, No dysphagia, No sore throat, No other Respiratory: cough, shortness of breath; No no complaints, No pain, No pleuritic pain, No sputum, No wheezing, No other Cardiovascular: No no complaints, No chest pain, No edema, No lightheadedness, No orthopenea, No palpitations, No paroxysmal nocturnal dyspnea, No other Gastrointestinal: constipation, decreased appetite; No no complaints, No pain, No blood, No diarrhea, No flatus, No nausea, No pa ssing stool, No vomiting, No other Genitourinary: No no complaints, No bleeding, No dysuria, No discharge, No flank pain, No hematuria, No other Musculoskeletal: back pain, bone/joint pain, neck pain; No no complaints, No restricted range of motion, No swelling, No other Skin: No no complaints, No bruising, No erythema, No laceration, No pruritis, No rash, No skin lesions, No other Neurologic: headache; No no complaints, No confusion, No dizziness, No focal-weakness, No syncope, No seizure, No other Psychological: anxiety; No no complaints, No nl mood/affect, No confusion, No depression, No suicidal, No other Exam/Review of Systems Vital Signs Vitals Vital Signs Date Temp Pulse Resp B/P (MAP) Pulse Ox O2 O2 Flow FiO2 Time Delivery Rate 04/27/18 97.9 80 18 133/83 94 07:43 (100) 04/27/18 Room Air 03:00 Intake and Output 04/26/18 04/26/18 04/27/18 1515:00 23:00 07:00 IntakeIntake Total 400 ml 950 ml 500 ml OutputOutput Total 200 ml 300 ml BalanceBalance 400 ml 750 ml 200 ml Exam Constitutional: alert, oriented, well developed, distress, obese; No non-verbal, No frail, No other Psych: anxiety; No no complaints, No nl mood/affect, No confusion, No depression, No suicidal, No other Head: normocephalic, atraumatic; No lacerations, No hematomas, No other Eyes: EOMI, nl lids, PERRL; No nl conjunctiva, No nl sclera, No icteric, No fundi, disc, No other ENMT: No nl external ears & nose, No nl lips & teeth, No nl nasal mucosa & s eptum, No mucosa pink and moist, No intubated, No tympanic membranes, No other Neck: non-tender, jvd, bruits, thyromegaly, nuchal rigidity Respiratory: congested cough; No clear to auscultation, No normal air movement, No crackles/rales, No diminished breath sounds, No intercostal retraction, No labored breathing, No respirations, No tactile fremitus, No wheezing, No other Cardiovascular: regular rate and rhythm, nl pulses, bruits, jugular venous distention (JVD); No diastolic murmur, No edema, No gallop, No irregular rhythm, No murmurs/extra sounds, No rub, No systolic murmur, No S3, No S4, No other Gastrointestinal: bowel sounds; No soft, No nl liver, spleen, No non-tender, No ascites, No distended, No firm, No hepatomegaly, No mass, No rebound or guarding, No splenomegaly, No surgical scars, No tender, No other Musculoskeletal: joint tenderness, muscle tone, muscle weakness; No nl extremities to inspection, No nl gait and stance, No range of motion, No spine non-tender, No swelling, No other Extremities: edema, palpable cord, tenderness; No normal pulses, No calf tenderness, No cyanosis, No clubbing, No pitting pedal edema, No other 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: ESTHETICIAN/SPA COORDINATOR 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, confused, numbness; No nl mental status, No nl speech, No nl strength, No DTR's symmetric, No focal weakness, No lethargic, No reflexes, No unresponsive, No other Skin: nl turgor; No rash or lesions, No diaphoresis, No ecchymosis, No laceration, No puncture, No other Lymph: No nl lymph nodes, No enlarged, No nontender, No other Medications Medications Current Medications Morphine Sulfate (morphine) 2 mg Q4 PRN IV PAIN Last administered on 04/27/18at 05:22; Admin Dose 2 MG; Start 04/25/18 at 18:00 Anastrozole (Arimidex) 1 mg DAILY PO Last administered on 04/27/18at 08:51; Admin Dose 1 MG; Start 04/25/18 at 19:00 Dexamethasone (Decadron) 4 mg Q8 IV Last administered on 04/27/18at 05:22; Admin Dose 4 MG; Start 04/25/18 at 22:00 Zolpidem Tartrate (Ambien) 10 mg HS PRN PO INSOMNIA; Start 04/25/18 at 23:30 Lorazepam (Ativan) 0.5 mg TID PRN PO ANXIETY; Start 04/25/18 at 23:30 Enoxaparin Sodium (Lovenox) 40 mg DAILY SC Last administered on 04/27/18at 08:51; Admin Dose 40 MG; Start 04/26/18 at 09:30 Benazepril HCl (Lotensin) 5 mg DAILY PO ; Start 04/27/18 at 09:00 Results Result Diagram: 04/26/18 0438 04/26/18 0438 Results 24 hrs Laboratory Tests Test 04/26/18 12:37 04/26/18 17:23 04/27/18 08:20 Bedside Glucose 140 211 182 RUSS JEROME MD Apr 27, 2018 09:05
[2018-04-27] MEDS: BENAZEPRIL 5 MG TAB PO SCH (10:10)
--- NOTE | 2018-04-27 11:17 | CONS ---
Date/Time of Note Date/Time of Note DATE: 04/27/18 TIME: 11:17 Assessment/Plan Assessment/Plan Chief Complaint/Hosp Course METASTATIC BREAST Cancer ( PRIMARY IS IN THE L BREAST ) with MULTIPLE BONY METS, PULMONARY METS SEVERE T-L SPINE PAIN WITH DIFFICULTIES TO AMBULATE MRI T-L SPINE- Diffuse osseous metastatic disease of the visualized thoracic spine (T10 - T12), the entire lumbar spine, sacrum, and bilateral iliac bones. Expansion of the posterior T9 vertebral body resulting in central canal stenosis with AP diameter measuring 8 mm. CONT IV STEROIDS CONT AI PAIN CONTROL RADONC AND NEUROSURG F-UP MRI C - SPINE AND R HIP BONE SCAN Obesity. Weight loss 60 pounds during the last 2 years by diet PMS. Myopia. Anemia chronic disease. Anxiety disorder. Posttraumatic stress disorder. 1Pain in the left forearm with a history of fracture of ulna and radius. Tachycardia Incomplete data Consultation Date/Type/Reason Admit Date/Time Apr 25, 2018 at 14:37 Initial Consult Date 04/25/18 [facility] Request[facility] Provider: RUSS JEROME MD 24 HR Interval Summary Free Text/Dictation ALL NOTED D/W CONSULTANTS Exam/Review of Systems Vital Signs Vitals Vital Signs Date Temp Pulse Resp B/P (MAP) Pulse Ox O2 O2 Flow FiO2 Time Delivery Rate 04/27/18 97.9 80 18 133/83 94 07:43 (100) 04/27/18 Room Air 03:00 Intake and Output 04/26/18 04/26/18 04/27/18 1515:00 23:00 07:00 IntakeIntake Total 400 ml 950 ml 500 ml OutputOutput Total 200 ml 300 ml BalanceBalance 400 ml 750 ml 200 ml Exam Constitutional: alert, oriented, well developed, distress, frail; No non-verbal, No other Psych: anxiety, depression; No no complaints, No nl mood/affect, No confusion, No suicidal, No other Head: normocephalic, atraumatic; No lacerations, No hematomas, No other Eyes: EOMI, nl lids, PERRL; No nl conjunctiva, No nl sclera, No icteric, No fundi, disc, No other ENMT: tympanic membranes; No nl external ears & nose, No nl lips & teeth, No nl nasal mucosa & septum, No mucosa pink and moist, No intubated, No other Neck: supple, non-tender, jvd, bruits; No masses, No thyromegaly, No nuchal rigidity, No other Respiratory: clear to auscultation, normal air movement, crackles/rales, diminished breath sounds, respirations; No congested cough, No intercostal retraction, No labored breathing, No tactile fremitus, No wheezing, No other Cardiovascular: regular rate and rhythm, bruits, jugular venous distention (JVD), systolic murmur; No nl pulses, No diastolic murmur, No edema, No gallop, No irregular rhythm, No murmurs/extra sounds, No rub, No S3, No S4, No other Gastrointestinal: soft, non-tender, bowel sounds, distended, hepatomegaly, other (Obesity with thick fatty layer of the anterior abdominal wall with no rebound.); No nl liver, spleen, No ascites, No firm, No mass, No rebound or guarding, No splenomegaly, No surgical scars, No tender Genitourinary - Female: nl adnexae, nl external genitalia, CVA tenderness; No CMT, No uterus, No other Musculoskeletal: joint tenderness, muscle tone, muscle weakness, spine non- tender (Severe tenderness of the intrascapular area lumbosacral area with great difficulty to get up to move. 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; No nl mental status, No nl speech, No nl strength, No confused, No DTR's symmetric, No focal weakness, No lethargic, No numbness, No reflexes, No unresponsive, No other Skin: nl turgor; No rash or lesions, No diaphoresis, No ecchymosis, No laceration, No puncture, No other Lymph: No nl lymph nodes, No enlarged, No nontender, No other Medications Medications Current Medications Morphine Sulfate (morphine) 2 mg Q4 PRN IV PAIN Last administered on 04/27/18at 10:12; Admin Dose 2 MG; Start 04/25/18 at 18:00 Anastrozole (Arimidex) 1 mg DAILY PO Last administered on 04/27/18at 08:51; Admin Dose 1 MG; Start 04/25/18 at 19:00 Dexamethasone (Decadron) 4 mg Q8 IV Last administered on 04/27/18at 05:22; Admin Dose 4 MG; Start 04/25/18 at 22:00 Zolpidem Tartrate (Ambien) 10 mg HS PRN PO INSOMNIA; Start 04/25/18 at 23:30 Lorazepam (Ativan) 0.5 mg TID PRN PO ANXIETY; Start 04/25/18 at 23:30 Enoxaparin Sodium (Lovenox) 40 mg DAILY SC Last administered on 04/27/18at 08:51; Admin Dose 40 MG; Start 04/26/18 at 09:30 Benazepril HCl (Lotensin) 5 mg DAILY PO Last administered on 04/27/18at 10:10; Admin Dose 5 MG; Start 04/27/18 at 09:00 Results Result Diagram: 04/26/18 0438 04/26/18 0438 Results 24 hrs Laboratory Tests Test 04/26/18 12:37 04/26/18 17:23 04/27/18 08:20 Bedside Glucose 140 211 182 DES DUNAWAY MD Apr 27, 2018 11:17
[2018-04-27 14:00] VITALS: BP 115/61; PULSE 86; RESP 18
[2018-04-27] MEDS ORDERED: PAMIDRONATE 30 MG in SOD CHLORIDE 0.9% 500 ML IV ONE (15:00)
[2018-04-27 19:30] VITALS: BP 146/85; PULSE 87; RESP 20
[2018-04-27] MEDS: morphine 4 MG/ML VIAL IV PRN (22:23)
[2018-04-28] MEDS: morphine 4 MG/ML VIAL IV PRN ×6 (02:29→22:12)
[2018-04-28 02:45] VITALS: BP 184/92; PULSE 78; RESP 20
[2018-04-28] MEDS: AMLODIPINE 5 MG TAB PO SCH ×3 (03:42→21:23)
[2018-04-28] MEDS: DEXAMETHASONE 4 MG/ML 1 ML INJ IV SCH ×3 (06:05→22:11)
[2018-04-28] MEDS: MAGNESIUM HYDROXIDE 30ML CUP PO PRN (06:06)
[2018-04-28 08:00] VITALS: BP 169/95; PULSE 84; RESP 18
[2018-04-28] MEDS: BENAZEPRIL 5 MG TAB PO SCH (08:43)
[2018-04-28] MEDS: ANASTROZOLE 1 MG TAB PO SCH (08:44)
[2018-04-28] MEDS: ENOXAPARIN 40 MG/0.4 ML SYG SC SCH (08:45)
--- NOTE | 2018-04-28 13:28 | CONS ---
Date/Time of Note Date/Time of Note DATE: 04/28/18 TIME: 13:24 Assessment/Plan Assessment/Plan Chief Complaint/Hosp Course METASTATIC BREAST Cancer ( PRIMARY IS IN THE L BREAST ) with WIDE-SPREAD MULTIPLE BONY METS, PULMONARY METS SEVERE C-T-L SPINE AND R HIP PAIN WITH DIFFICULTIES TO AMBULATE MRI C-T-L SPINE- Diffuse osseous metastatic disease of the visualized thoracic spine (T10 - T12), the entire lumbar spine, sacrum, and bilateral iliac bones. Expansion of the posterior T9 vertebral body resulting in central canal stenosis with AP diameter measuring 8 mm. CONT IV STEROIDS CONT AI PAIN CONTROL RADONC AND NEUROSURG F-UP PLAN- START XRT ON SUNDAY BONE SCAN - ORDERED Obesity. Weight loss 60 pounds during the last 2 years by diet PMS. Myopia. Anemia chronic disease. Anxiety disorder. Posttraumatic stress disorder. Pain in the left forearm with a history of fracture of ulna and radius. Tachycardia Incomplete data Consultation Date/Type/Reason Admit Date/Time Apr 25, 2018 at 14:37 Initial Consult Date 04/25/18 Type of Consultation: [facility] Requesting Provider: RUSS JEROME MD 24 HR Interval Summary Free Text/Dictation ALL /NOTED D/W DR BARON PLAN - START XRT ON SUNDAY Exam/Review of Systems Vital Signs Vitals Vital Signs Date Temp Pulse Resp B/P (MAP) Pulse Ox O2 O2 Flow FiO2 Time Delivery Rate 04/28/18 98.5 84 18 169/95 93 08:00 (119) 04/27/18 Room Air 03:00 Intake and Output 04/27/18 04/27/18 04/28/18 1515:00 23:00 07:00 IntakeIntake Total 200 ml 740 ml 1440 ml BalanceBalance 200 ml 740 ml 1440 ml Exam Constitutional: alert, oriented, well developed, distress, frail; No non-verbal, No other Psych: anxiety, depression; No no complaints, No nl mood/affect, No confusion, No suicidal, No other Head: normocephalic, atraumatic; No lacerations, No hematomas, No other Eyes: EOMI, nl lids, PERRL; No nl conjunctiva, No nl sclera, No icteric, No fundi, disc, No other ENMT: tympanic membranes; No nl external ears & nose, No nl lips & teeth, No nl nasal mucosa & septum, No mucosa pink and moist, No intubated, No other Neck: supple, non-tender, jvd, bruits; No masses, No thyromegaly, No nuchal rigidity, No other Respiratory: clear to auscultation, normal air movement, crackles/rales, diminished breath sounds, respirations; No congested cough, No intercostal retraction, No labored breathing, No tactile fremitus, No wheezing, No other Cardiovascular: regular rate and rhythm, bruits, jugular venous distention (JVD), systolic murmur; No nl pulses, No diastolic murmur, No edema, No gallop, No irregular rhythm, No murmurs/extra sounds, No rub, No S3, No S4, No other Gastrointestinal: soft, non-tender, bowel sounds, distended, hepatomegaly, other (Obesity with thick fatty layer of the anterior abdominal wall with no re bound.); No nl liver, spleen, No ascites, No firm, No mass, No rebound or guarding, No splenomegaly, No surgical scars, No tender Genitourinary - Female: nl adnexae, nl external genitalia, CVA tenderness; No CMT, No uterus, No other Musculoskeletal: joint tenderness, muscle tone, muscle weakness, spine non- tender (Severe tenderness of the intrascapular area lumbosacral area with great difficulty to get up to move. 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; No nl mental status, No nl speech, No nl strength, No confused, No DTR's symmetric, No focal weakness, No lethargic, No numbness, No reflexes, No unresponsive, No other Skin: nl turgor; No rash or lesions, No diaphoresis, No ecchymosis, No laceration, No puncture, No other Lymph: No nl lymph nodes, No enlarged, No nontender, No other BREAST- LARGE L BREAST MASS Medications Medications Current Medications Anastrozole (Arimidex) 1 mg DAILY PO Last administered on 11/11/18at 08:44; Admin Dose 1 MG; Start 04/25/18 at 19:00 Dexamethasone (Decadron) 4 mg Q8 IV Last administered on 04/28/18at 06:05; Admin Dose 4 MG; Start 04/25/18 at 22:00 Zolpidem Tartrate (Ambien) 10 mg HS PRN PO INSOMNIA; Start 04/25/18 at 23:30 Lorazepam (Ativan) 0.5 mg TID PRN PO ANXIETY; Start 04/25/18 at 23:30 Enoxaparin Sodium (Lovenox) 40 mg DAILY SC Last administered on 04/28/18at 08:45; Admin Dose 40 MG; Start 04/26/18 at 09:30 Benazepril HCl (Lotensin) 5 mg DAILY PO Last administered on 04/28/18at 08:43; Admin Dose 5 MG; Start 04/27/18 at 09:00 Magnesium Hydroxide (Milk Of Mag) 30 ml DAILY PRN PO CONSTIPATION Last administered on 04/28/18at 06:06; Admin Dose 30 ML; Start 04/27/18 at 21:00 Morphine Sulfate (morphine) 3 mg Q4H PRN IV SEVERE PAIN LEVEL 7-10 Last administered on 04/28/18at 10:25; Admin Dose 3 MG; Start 04/27/18 at 21:00 Amlodipine Besylate (Norvasc) 5 mg BID PO Last administered on 04/28/18at 08:44; Admin Dose 5 MG; Start 04/28/18 at 04:00 Results Result Diagram: 04/26/188 04/26/18 0438 Results 24 hrs Laboratory Tests Test 04/27/18 17:51 04/28/18 08:42 04/28/18 12:36 Bedside Glucose 165 163 137 Imaging [place] [address] Radiology Main Line: [phone] DIAGNOSTIC IMAGING REPORT Patient: LEANA VILLEDA : 1960 Age: 58 Sex: F MR #: [id number] DOS: 04/27/18 1118 Ordering MD: DES DUNAWAY MD Location: [facility] [place] Room/Bed: 431-A PROCEDURE: MR Cervical Spine without intravenous contrast CLINICAL INDICATION: Cervical pain. Difficulty ambulating. History of breast cancer. COMPARISON: No previous examinations of the cervical spine. Correlated with MRI thoracic spine of 04/25/2018. TECHNIQUE: MRI examination of the cervical spine was obtained utilizing the following sequences: Sagittal T1 T2-weighted, axial T1 T2-weighted, and postcontrast axial and sagittal images . The patient received 10 ml of ProHance intravenously without complication. FINDINGS: Alignment: The normal cervical lordosis is maintained. Vertebral bodies: Widespread osseous metastasis involving all cervical levels and visualized upper thoracic spine. Expansion of the posterior T2 vertebral body resulting in mild central canal with the left half of the spinal canal measuring 8 mm posterior border expansion results in effacement of the left ventral thoracic spinal cord. Severe foraminal narrowing of the left T1-T2 and T2-T3 levels. Refer to dedicated MRI thoracic spine of 04/25/2018 for full details. Bone marrow: Widespread osseous metastasis of the cervical thoracic spine, calvarium, and clivus. Spinal cord: Effacement of the left ventral spinal cord at the superior T2 level by posterior expansion of the T2 vertebral body. Degenerative change: C2-C3 : Normal disc space and signal are maintained. No disc herniation. No central canal or foraminal stenosis. C3-C4 : Trace disc osteophyte complex most pronounced to the right of midline.. No disc herniation. Bilateral uncovertebral and facet joint arthropathy. No cora tral canal or foraminal stenosis. C4-C5 : Mild disc height loss with preserved disc signal.. Trace disc osteophyte ridge. No disc herniation. Bilateral uncovertebral facet joint arthropathy. No central canal or foraminal stenosis. C5-C6 : Mild disc height loss with preserved disc signal. There is a 2-3 mm broad-based disc protrusion. Mild central canal see stenosis with AP diameter measuring 7.5 mm . Bilateral and uncovertebral and facet joint arthropathy. No significant foraminal narrowing. C6-C7 : Normal disc space and signal are maintained. No disc herniation. Bilateral uncovertebral and facet joint arthropathy. No central canal or foraminal stenosis. C7-T1 : Normal disc space and signal are maintained. No disc herniation. Bilateral uncovertebral facet arthropathy. No central canal or foraminal stenosis. IMPRESSION: 1. Widespread osseous metastasis of all cervical levels, the visualized upper thoracic spine, the calvarium, and clivus. 2. Expansion of the posterior T2 vertebral body resulting in mild central canal stenosis and effacement of the left ventral thoracic spinal cord. 3. Severe left foraminal narrowing at the T1-T2 and T2-3 levels by tumoral involvement of the facet joints.. 4. C5-C6: 2-3 mm broad-based disc protrusion resulting in mild central canal stenosis with AP diameter measuring 7.5 mm. [<RPTAT: HRSR>] Physician Fadia Date Time Electronically viewed and signed by Anjel Macisa Physician on 04/28/2018 07:14 RR/ CC: DES DUNAWAY MD [id number] [place] [address] Radiology Main Line: [phone] DIAGNOSTIC IMAGING REPORT Patient: LEANA VILLEDA : 1960 Age: 58 Sex: F MR #: [id number] DOS: 04/27/18 1118 Ordering MD: DES DUNAWAY MD Location: [facility] [place] Room/Bed: [facility] PROCEDURE: MRI OF THE RIGHT HIP CLINICAL INDICATION: Hip pain. History of breast cancer. Difficulty walking. TECHNIQUE: Multiple MR pulse sequences in multiple planes were obtained. Images were interpreted on high-resolution PACS system. COMPARISON: None available FINDINGS: There are diffuse metastatic lesions seen throughout the visualized portions of the pelvis, lower lumbar spine and both femurs. There is extensive involvement of the right proximal femur with cortical and medullary involvement. There may be small soft tissue components of the right femur. No definite pathologic fracture is seen. Intra-articular: There is mild to moderate chondral loss about the humeral head and acetabulum. A trace amount of fluid is seen in the joint. Extra-articular: The gluteus medius and gluteus minimus insertions are intact, as are the rectus femoris and iliopsoas insertions. There is no greater trochanteric or iliopsoas bursitis. There is no bulky pelvic lymphadenopathy. Limited assessment of left hip demonstrates no high-grade chondral defects. The fat planes around the sciatic nerves are preserved bilaterally. IMPRESSION: 1. Extensive metastatic disease seen diffusely throughout the visualized portions of the lower lumbar spine, sacrum, pelvis and both hips noting extensive involvement of the right femur. No displaced pathologic fracture is currently seen. 2. No large soft tissue component is suspected. 3. Mild right gluteus medius bursitis. RPTAT: PP .Nathen Cespedes MD, MD Date Time Electronically viewed and signed by .Nathen Cespedes MD, MD on 04/27/2018 16:03 .d/ CC: DES DUNAWAY MD [id number] DES DUNAWAY MD Apr 28, 2018 13:28
--- NOTE | 2018-04-28 13:36 | CONS ---
DATE OF ADMISSION: 04/25/2018 DATE OF CONSULTATION: REASON FOR CONSULTATION: Evaluation for palliative radiotherapy. DIAGNOSIS: Metastatic carcinoma of the breast. Stage IV. REFERRING PHYSICIAN: Tayla Fernández MD. HISTORY OF PRESENT ILLNESS: The patient is a 58-year-old female who was in her usual state of health until about 2 or 3 months ago when she then began to develop pain in the mid to lower thoracic regio n. The pain would not radiate anteriorly. Since then, the pain has progressed in nature and seems t o have settled with increased intensity in the lumbosacral region but does not radiate down the legs. She denies any lower extremity numbness. She does admit to additional pain in the cervical region and in the right hip radiating to the right knee. She denies any shortness of breath, cough or hemop tysis. She has some nausea and decreased appetite and has lost 60 pounds in the past 2 years, but so me of this was purposeful. She apparently underwent a workup as an outpatient and a biopsy of the left breast from the breast ca rcinoma of the breast, but I am waiting for confirmatory reports. She was admitted to [facility] for matters of pain control. She has undergone MRI imaging of the thoracolumbar spine on 04/25/2018 and this showed diffuse osseous metastases involving essentially all vertebral bodies, the sacrum and the bilateral iliac bones. There were several mild compression deformities in the th oracic spine and a moderate compression deformity at T9 with up to 60% loss in vertebral body height. There was bony expansion, posteriorly, especially involving T3, T4, T5, T7, T9, T10, T11 and T12 re sulting in mild to moderate central canal stenosis with mass effect upon the thoracic cord, but no co rd compression. Currently, the patient rates her pain as 4 or 5/10 while on steroids and on Morphine sulfate. She has also been started on an aromatase inhibitor Arimidex. PAST MEDICAL HISTORY: Gastroesophageal reflux disease, hyperlipidemia, hypertension, status post fra cture, left forearm. SURGICAL HISTORY: Noncontributory. ALLERGIES TO MEDICATIONS: None. CURRENT MEDICATIONS: 1. Morphine sulfate 2 mg q.4h. 2. Arimidex 1 mg daily. 3. Decadron 4 mg q.8h. SOCIAL HISTORY: She denies tobacco or alcohol use. She is originally from the [facility]. FAMILY HISTORY: No reported family history of breast cancer. REVIEW OF SYSTEMS: CONSTITUTIONAL: Denies fever, chills, or sweats. ENT: Denies otalgia, dysphagia or hoarseness. NEUROLOGIC: No headaches, visual disturbances, sensory deficits in the lower extremities. PULMONARY: No shortness of breath, cough, hemoptysis or wheezing. CARDIOVASCULAR: Denies chest pain, palpitations, heart attacks or strokes. GASTROINTESTINAL: Nausea but without vomiting. Decreased appetite. No diarrhea, constipation, or r ectal bleeding. GENITOURINARY: No dysuria, hematuria or incontinence. ENDOCRINE: No history of diabetes or thyroid disease. SKIN: No history of lupus or scleroderma. MUSCULOSKELETAL: As described. PHYSICAL EXAMINATION: GENERAL: Well-developed female who is somewhat anxious. HEENT: Normocephalic, atraumatic. Sclerae icteric. No facial droop. Oral cavity without mucositis or thrush. Pupils are slightly miotic. Extraocular motions are intact. No facial asymmetry. NODES: No palpable cervical, supraclavicular or axillary adenopathy. LUNGS: Clear. ABDOMEN: Soft, nontender, without rebound or guarding. EXTREMITIES: No edema. MUSCULOSKELETAL: Mild tenderness in the thoracolumbar spine. NEUROLOGIC: Normal strength bilaterally with respect to plantar flexion and dorsiflexion. Pain limi ts elevation of the right lower extremity against gravity. Deep tendon reflexes are downgoing. No s ensory level. ASSESSMENT AND PLAN: The patient is a 58-year-old female apparently diagnosed with a stage IV carcin ching of the breast with diffuse bony metastases. There is evidence of significant disease in the thor acolumbar spine with at least cord impingement but without neurologic deficits. She is now on steroi ds. She also does complain of cervical spine and right hip pain. PLAN: I am trying to retrieve her outpatient records for further review. If not already performed, she may benefit from a CT chest, abdomen and pelvis with whole body bone scan. If there is a signifi cant lytic lesion in the right hip region this may warrant orthopedic evaluation. The patient also is scheduled to be assessed by neurosurgery, specifically with respect to T9. I wou ld withhold proceeding with any radiation treatment if she is to undergo an operation. If not, palli ative radiotherapy could be considered to a thoracic or lumbar spine but I would like to limit the vo lume, so that side effects are not that significant. This may be difficult because of her significan t pain is in the lumbosacral region where it is most prominent epidural disease at T9. I did review the nature, risks and benefits of radiotherapy to the patient. Side effects were discussed and quest ions answered. This included but was not limited to discussion which was positive for fatigue, nause a, vomiting, cramping, diarrhea and bone marrow suppression. All questions were answered. I have al so contacted Dr. Fernández who I hope will be comfortable ordering further staging studies. Also, it is my understanding that the patient may be considered in the future for Ibrance as well as a bispho sphonate. Dictated By: KELSI GRANDE/KEANU Conf#: [id number] DID#: [id number] CC: RUSS JEROME MD;*EndCC*
[2018-04-28 14:00] VITALS: BP 153/89; PULSE 77; RESP 18
--- NOTE | 2018-04-28 18:14 | PN ---
Date/Time of Note Date/Time of Note DATE: 04/28/18 TIME: 18:12 Assessment/Plan VTE Prophylaxis Risk score (from Ns)>0 risk: 4 SCD applied (from Ns): Yes Pharmacological prophylaxis: NA/contraindicated Pharm contraindication: other (Fractured vertebrae.) Lines/Catheters [facility] Saline Lock Central line still needed: No Urinary Cath still in place: No Reason Cath still needed: urinary retention Assessment/Plan Assessment/Plan 1. Cancer of the left breast. Exact type at this time unknown. 2. Severe pain in the interscapular and lumbar sacral area most probably metastatic lesion possible femoral fracture. pathologic fracture of T9 with 60% of loss of height. Neurosurgical consult acknowledged. Radiation oncology consult. Kyphoplasty as a planned procedure is active in a list. 3. Obesity. 4. Weight loss 60 pounds during the last 2 years by diet 5. PMS. 6. Myopia. 7. Anemia chronic disease. 8. Anxiety disorder. 9. Posttraumatic stress disorder. 10. Pain in the left forearm with a history of fracture of ulna and radius. 11. Tachycardia 12. Incomplete data MRI od neck:1. Widespread osseous metastasis of all cervical levels, the visualized upper thoracic spine, the calvarium, and clivus. 2. Expansion of the posterior T2 vertebral body resulting in mild central canal stenosis and effacement of the left ventral thoracic spinal cord. 3. Severe left foraminal narrowing at the T1-T2 and T2-3 levels by tumoral involvement of the facet joints.. 4. C5-C6: 2-3 mm broad-based disc protrusion resulting in mild central canal stenosis with AP diameter measuring 7.5 mm. Subjective 24 Hr Interval Summary Free Text/Dictation Severe constipation I did not have a bowel movement the last 3 days. Milk of magnesia did not work. Pain is better controlled. Elevation of blood sugar after starting the Decadron. Subjective hx not possible: other (Pain controlled feels comfortable.) Constitutional: improved (In terms of pain control.); No no complaints, No chills, No diaphoresis, No disoriented, No febrile, No poor po, No requiring IVF, No requiring O2, No other Eyes: pain; No no complaints, No discharge, No redness, No visual change, No other ENT: pain; No no complaints, No bleeding, No congestion, No discharge, No dysphagia, No sore throat, No other Respiratory: cough, shortness of breath; No no complaints, No pain, No pleuritic pain, No sputum, No wheezing, No other Cardiovascular: lightheadedness, orthopenea, palpitations; No no complaints, No chest pain, No edema, No paroxysmal nocturnal dyspnea, No other Gastrointestinal: constipation; No no complaints, No pain, No blood, No decreased appetite, No diarrhea, No flatus, No nausea, No passing stool, No vomiting, No other Genitourinary: No no complaints, No bleeding, No dysuria, No discharge, No flank pain, No hematuria, No other Musculoskeletal: back pain, bone/joint pain; No no complaints, No neck pain, No restricted range of motion, No swelling, No other Skin: pruritis; No no complaints, No bruising, No erythema, No laceration, No rash, No skin lesions, No other Neurologic: headache; No no complaints, No confusion, No dizziness, No focal-weakness, No syncope, No seizure, No other Endocrine: dry skin; No no complaints, No polyuria, No polydypsia, No temp intolerance, No other Lymphatic: No no complaints, No adenopathy, No tender nodes, No lymphadema, No other Psychological: anxiety, depression; No no complaints, No nl mood/affect, No confusion, No suicidal, No other Immunologic: No no complaints, No immunodeficiency, No pruritis, No rhinitis, No urticaria, No other Exam/Review of Systems Vital Signs Vitals Vital Signs Date Temp Pulse Resp B/P (MAP) Pulse Ox O2 O2 Flow FiO2 Time Delivery Rate 04/28/18 98.1 77 18 153/89 94 14:00 (110) 04/27/18 Room Air 03:00 Intake and Output 04/27/18 04/27/18 04/28/18 1515:00 23:00 07:00 IntakeIntake Total 200 ml 740 ml 1440 ml BalanceBalance 200 ml 740 ml 1440 ml Exam Constitutional: alert, oriented, well developed, distress, frail, obese; No non-verbal, No other Psych: anxiety, depression; No no complaints, No nl mood/affect, No confusion, No suicidal, No other Head: normocephalic, atraumatic; No lacerations, No hematomas, No other Eyes: No nl conjunctiva, No EOMI, No nl lids, No nl sclera, No PERRL, No icteric, No fundi, disc, No other ENMT: nl external ears & nose, nl nasal mucosa & septum, mucosa pink and moist; No nl lips & teeth, No intubated, No tympanic membranes, No other Neck: jvd, thyromegaly; No supple, No non-tender, No bruits, No masses, No nuchal rigidity, No other Respiratory: normal air movement, congested cough, diminished breath sounds; No clear to auscultation, No crackles/rales, No intercostal retraction, No labored breathing, No respirations, No tactile fremitus, No wheezing, No other Cardiovascular: regular rate and rhythm; No nl pulses, No bruits, No diastolic murmur, No edema, No gallop, No irregular rhythm, No jugular venous distention (JVD), No murmurs/extra sounds, No rub, No systolic murmur, No S3, No S4, No other Gastrointestinal: nl liver, spleen, bowel sounds, distended; No soft, No non-tender, No ascites, No firm, No hepatomegaly, No mass, No rebound or guarding, No splenomegaly, No surgical scars, No tender, No other Genitourinary - Female: nl adnexae, nl external genitalia; No CMT, No CVA tenderness, No uterus, No other Musculoskeletal: joint tenderness 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: 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, nl mental status, nl speech, nl strength Skin: nl turgor; No rash or lesions, No diaphoresis, No ecchymosis, No laceration, No puncture, No other Lymph: No nl lymph nodes, No enlarged, No nontender, No other Medications Medications Current Medications Anastrozole (Arimidex) 1 mg DAILY PO Last administered on 04/28/18at 08:44; Admin Dose 1 MG; Start 04/25/18 at 19:00 Dexamethasone (Decadron) 4 mg Q8 IV Last administered on 04/28/18at 14:16; Admin Dose 4 MG; Start 04/25/18 at 22:00 Zolpidem Tartrate (Ambien) 10 mg HS PRN PO INSOMNIA; Start 04/25/18 at 23:30 Lorazepam (Ativan) 0.5 mg TID PRN PO ANXIETY; Start 04/25/18 at 23:30 Enoxaparin Sodium (Lovenox) 40 mg DAILY SC Last administered on 04/28/18at 08:45; Admin Dose 40 MG; Start 04/26/18 at 09:30 Benazepril HCl (Lotensin) 5 mg DAILY PO Last administered on 04/28/18at 08:43; Admin Dose 5 MG; Start 04/27/18 at 09:00 Magnesium Hydroxide (Milk Of Mag) 30 ml DAILY PRN PO CONSTIPATION Last administered on 04/28/18at 06:06; Admin Dose 30 ML; Start 04/27/18 at 21:00 Morphine Sulfate (morphine) 3 mg Q4H PRN IV SEVERE PAIN LEVEL 7-10 Last administered on 04/28/18at 18:03; Admin Dose 3 MG; Start 04/27/18 at 21:00 Amlodipine Besylate (Norvasc) 5 mg BID PO Last administered on 04/28/18at 08:44; Admin Dose 5 MG; Start 04/28/18 at 04:00 Results Result Diagram: 04/26/18 0438 04/26/18 0438 Results 24 hrs Laboratory Tests Test 04/28/18 08:42 04/28/18 12:36 04/28/18 17:35 Bedside Glucose 163 137 150 RUSS JEROME MD Apr 28, 2018 18:14
[2018-04-28 20:03] VITALS: BP 133/89; PULSE 83; RESP 18
[2018-04-29] MEDS: morphine 4 MG/ML VIAL IV PRN ×4 (03:06→21:08)
[2018-04-29 03:11] VITALS: BP 139/86; PULSE 81; RESP 18
[2018-04-29] MEDS: DEXAMETHASONE 4 MG/ML 1 ML INJ IV SCH ×3 (06:11→21:08)
[2018-04-29 08:37] VITALS: BP 143/97; PULSE 84; RESP 18
[2018-04-29] MEDS: MAGNESIUM HYDROXIDE 30ML CUP PO PRN (09:04)
[2018-04-29] MEDS: ANASTROZOLE 1 MG TAB PO SCH (09:05)
[2018-04-29] MEDS: LORAZEPAM 0.5 MG TAB PO PRN (09:05)
[2018-04-29] MEDS: AMLODIPINE 5 MG TAB PO SCH ×2 (09:06→21:07)
[2018-04-29] MEDS: BENAZEPRIL 5 MG TAB PO SCH ×2 (09:06→21:07)
[2018-04-29] MEDS: ENOXAPARIN 40 MG/0.4 ML SYG SC SCH (09:07)
--- NOTE | 2018-04-29 09:19 | PN ---
Date/Time of Note Date/Time of Note DATE: 04/29/18 TIME: 09:05 Assessment/Plan VTE Prophylaxis Risk score (from Ns)>0 risk: 4 SCD applied (from Ns): Yes Pharmacological prophylaxis: LMWH Pharm contraindication: low risk/ambulating Lines/Catheters [facility] Saline Lock Central line still needed: No Urinary Cath still in place: No Reason Cath still needed: urinary retention Assessment/Plan Assessment/Plan 1. Cancer of the left and left breast. Exact type at this time unknown. 2. Severe pain in the interscapular and lumbar sacral area most probably metastatic lesion possible femoral fracture. pathologic fracture of T9 with 60% of loss of height. Neurosurgical consult planned. 3. Obesity. 4. Weight loss 60 pounds during the last 2 years by diet 5. PMS. 6. Myopia. 7. Anemia chronic disease. 8. Anxiety disorder. 9. Posttraumatic stress disorder. 10. Pain in the left forearm with a history of fracture of ulna and radius. 11. Tachycardia 12. Incomplete data Subjective 24 Hr Interval Summary Free Text/Dictation Severe constipation. I did bowel movement last 3 days. No nausea vomiting. Pain is better controlled. Until 4 hours I feel comfortable. It is more than 4 hours it is getting incrementally worse. No fever and chills. Mild elevation of blood sugar after starting the Decadron. Subjective hx not possible: pt critical status Constitutional: improved; No no complaints, No chills, No diaphoresis, No disoriented, No febrile, No poor po, No requiring IVF, No requiring O2, No other Eyes: No no complaints, No pain, No discharge, No redness, No visual change, No other ENT: No no complaints, No bleeding, No pain, No congestion, No discharge, No dysphagia, No sore throat, No other Respiratory: cough, shortness of breath; No no complaints, No pain, No pleuritic pain, No sputum, No wheezing, No othe r Cardiovascular: chest pain, orthopenea, palpitations; No no complaints, No edema, No lightheadedness, No paroxysmal nocturnal dyspnea, No other Gastrointestinal: constipation, decreased appetite; No no complaints, No pain, No blood, No diarrhea, No flatus, No nausea, No passing stool, No vomiting, No other Genitourinary: dysuria; No no complaints, No bleeding, No discharge, No flank pain, No hematuria, No other Musculoskeletal: back pain, bone/joint pain, neck pain Skin: rash; No no complaints, No bruising, No erythema, No laceration, No pruritis, No skin lesions, No other Exam/Review of Systems Vital Signs Vitals Vital Signs Date Temp Pulse Resp B/P (MAP) Pulse Ox O2 O2 Flow FiO2 Time Delivery Rate 04/29/18 97.8 84 18 143/97 92 Room Air 08:37 (112) 04/28/18 2.0 20:15 Intake and Output 04/28/18 04/28/18 04/29/18 1515:00 23:00 07:00 IntakeIntake Total 300 ml 700 ml BalanceBalance 300 ml 700 ml Exam Constitutional: alert, oriented, well developed, distress, frail, obese; No non-verbal, No other Psych: anxiety, depression; No no complaints, No nl mood/affect, No confusion, No suicidal, No other Head: normocephalic, atraumatic; No lacerations, No hematomas, No other Eyes: EOMI, nl lids; No nl conjunctiva, No nl sclera, No PERRL, No icteric, No fundi, disc, No other ENMT: nl external ears & nose; No nl lips & teeth, No nl nasal mucosa & septum, No mucosa pink and moist, No intubated, No tympanic membranes, No other Neck: jvd, thyromegaly, nuchal rigidity; No supple, No non-tender, No bruits, No masses, No other Respiratory: clear to auscultation, normal air movement, diminished breath sounds; No congested cough, No crackles/rales, No intercostal retraction, No labored breathing, No respirations, No tactile fremitus, No wheezing, No other Cardiovascular: regular rate and rhythm; No nl pulses, No bruits, No diastolic murmur, No edema, No gallop, No irregular rhythm, No jugular venous distention (JVD), No murmurs/extra sounds, No rub, No systolic murmur, No S3, No S4, No other Gastrointestinal: soft, bowel sounds; No nl liver, spleen, No non-tender, No ascites, No distended, No firm, No hepatomegaly, No mass, No rebound or guarding, No splenomegaly, No surgical scars, No tender, No other Musculoskeletal: nl gait and stance, joint tenderness, muscle weakness; No nl extremities to inspection, No muscle tone, No range of motion, No spine non-tender, No swelling, No other Extremities: normal pulses; No calf tenderness, No cyanosis, No clubbing, No edema, No pitting pedal edema, No palpable cord, No tenderness, No other 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: 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, nl mental status, nl speech, nl strength; No confused, No DTR's symmetric, No focal weakness, No lethargic, No numbness, No reflexes, No unresponsive, No other Skin: nl turgor; No rash or lesions, No diaphoresis, No ecchymosis, No laceration, No punct ure, No other Lymph: No nl lymph nodes, No enlarged, No nontender, No other Medications Medications Current Medications Anastrozole (Arimidex) 1 mg DAILY PO Last administered on 04/28/18at 08:44; Admin Dose 1 MG; Start 04/25/18 at 19:00 Dexamethasone (Decadron) 4 mg Q8 IV Last administered on 04/29/18at 06:11; Admin Dose 4 MG; Start 04/25/18 at 22:00 Zolpidem Tartrate (Ambien) 10 mg HS PRN PO INSOMNIA; Start 04/25/18 at 23:30 Lorazepam (Ativan) 0.5 mg TID PRN PO ANXIETY; Start 04/25/18 at 23:30 Enoxaparin Sodium (Lovenox) 40 mg DAILY SC Last administered on 04/28/18at 08:45; Admin Dose 40 MG; Start 04/26/18 at 09:30 Benazepril HCl (Lotensin) 5 mg DAILY PO Last administered on 04/28/18at 08:43; Admin Dose 5 MG; Start 04/27/18 at 09:00 Magnesium Hydroxide (Milk Of Mag) 30 ml DAILY PRN PO CONSTIPATION Last administered on 04/28/18at 06:06; Admin Dose 30 ML; Start 04/27/18 at 21:00 Morphine Sulfate (morphine) 3 mg Q4H PRN IV SEVERE PAIN LEVEL 7-10 Last administered on 04/29/18at 03:06; Admin Dose 3 MG; Start 04/27/18 at 21:00 Amlodipine Besylate (Norvasc) 5 mg BID PO Last administered on 04/28/18at 21:23; Admin Dose 5 MG; Start 04/28/18 at 04:00 Results Result Diagram: 04/26/18 0438 04/26/18 0438 Results 24 hrs Laboratory Tests Test 04/28/18 12:36 04/28/18 17:35 04/29/18 08:55 Bedside Glucose 137 150 167 RUSS JEROME MD Apr 29, 2018 09:16
[2018-04-29] MEDS ORDERED: GLUCOSE GEL 15 GRAM TUBE BUCCAL PRN (10:30)
[2018-04-29] MEDS ORDERED: GLUCAGON 1 MG INJ IM PRN (10:30)
[2018-04-29] MEDS ORDERED: DEXTROSE 50% 50 ML SYRINGE IV PRN ×2 (10:30)
[2018-04-29] MEDS ORDERED: GLUCOSE GEL 15 GRAM TUBE PO PRN ×2 (10:30)
[2018-04-29] MEDS: INSULIN ASPART [NOVOLOG] 3 ML PEN SC SCH ×2 (12:00→17:57)
--- NOTE | 2018-04-29 18:07 | CONS ---
Date/Time of Note Date/Time of Note DATE: 04/29/18 TIME: 18:06 Assessment/Plan Assessment/Plan Chief Complaint/Hosp Course Assessment: Sinus tachycardia - appears physiologic secondary to pain, hear rates normalized with pain control Hypertension Metastatic breast cancer - follow up oncology and radiation oncology, planning to start radiation therapy Back pain - metastatic disease to the spine, follow up neurosurgery Recommendations: -increase benazepril to 5mg BID -continue amlodipine 5mg BID Consultation Date/Type/Reason Admit Date/Time Apr 25, 2018 at 14:37 Initial Consult Date 04/26/18 Type of Consultation: Cardiology 24 HR Interval Summary Free Text/Dictation Blood pressures have been elevated. Planning to start radiation therapy. Detailed Summary Additional Comments 14 point review of systems without changes. Exam/Review of Systems Vital Signs Vitals Vital Signs Date Temp Pulse Resp B/P (MAP) Pulse Ox O2 O2 Flow FiO2 Time Delivery Rate 04/29/18 97.8 84 18 143/97 92 Room Air 08:37 (112) 04/29/18 2.0 08:00 Intake and Output 04/28/18 04/28/18 04/29/18 1414:59 22:59 06:59 IntakeIntake Total 300 ml 700 ml BalanceBalance 300 ml 700 ml Exam Constitutional: alert, well developed Psych: no complaints, nl mood/affect Head: normocephalic, atraumatic Eyes: nl conjunctiva, nl lids ENMT: nl external ears & nose, nl nasal mucosa & septum Neck: supple, non-tender Respiratory: clear to auscultation, normal air movement Cardiovascular: regular rate and rhythm Gastrointestinal: soft, non-tender Musculoskeletal: nl extremities to inspection Extremities: No cyanosis, No clubbing, No edema 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: nl mental status, nl speech Medications Medications Current Medications Anastrozole (Arimidex) 1 mg DAILY PO Last administered on 04/29/18at 09:05; Admin Dose 1 MG; Start 04/25/18 at 19:00 Dexamethasone (Decadron) 4 mg Q8 IV Last administered on 04/29/18at 13:59; Admin Dose 4 MG; Start 04/25/18 at 22:00 Zolpidem Tartrate (Ambien) 10 mg HS PRN PO INSOMNIA; Start 04/25/18 at 23:30 Lorazepam (Ativan) 0.5 mg TID PRN PO ANXIETY Last administered on 04/29/18at 09:05; Admin Dose 0.5 MG; Start 04/25/18 at 23:30 Enoxaparin Sodium (Lovenox) 40 mg DAILY SC Last administered on 04/29/18at 09: 07; Admin Dose 40 MG; Start 04/26/18 at 09:30 Benazepril HCl (Lotensin) 5 mg DAILY PO Last administered on 04/29/18at 09:06; Admin Dose 5 MG; Start 04/27/18 at 09:00 Magnesium Hydroxide (Milk Of Mag) 30 ml DAILY PRN PO CONSTIPATION Last administered on 04/29/18at 09:04; Admin Dose 30 ML; Start 04/27/18 at 21:00 Morphine Sulfate (morphine) 3 mg Q4H PRN IV SEVERE PAIN LEVEL 7-10 Last administered on 04/29/18at 13:59; Admin Dose 3 MG; Start 04/27/18 at 21:00 Amlodipine Besylate (Norvasc) 5 mg BID PO Last administered on 04/29/18at 09:06; Admin Dose 5 MG; Start 04/28/18 at 04:00 Polyethylene Glycol (Miralax) 17 gm BID PO ; Start 04/29/18 at 21:00 Docusate Sodium (Colace) 200 mg BID PO ; Start 04/29/18 at 21:00 Insulin Aspart (Novolog Insulin Pen) NOVOLOG *MILD* ALGORITHM Q6 SC Last administered on 04/29/18at 17:57; Admin Dose 1 UNIT; Start 04/29/18 at 12:00 Miscellaneous Information 1 ea NOTE XX ; Start 04/29/18 at 10:30 Glucose (Glutose) 15 gm Q15M PRN PO DECREASED GLUCOSE; Start 04/29/18 at 10:30 Glucose (Glutose) 22.5 gm Q15M PRN PO DECREASED GLUCOSE; Start 04/29/18 at 10:30 Dextrose (D50w Syringe) 25 ml Q15M PRN IV DECREASED GLUCOSE; Start 04/29/18 at 10:30 Dextrose (D50w Syringe) 50 ml Q15M PRN IV DECREASED GLUCOSE; Start 04/29/18 at 10:30 Glucagon (Glucagen) 1 mg Q15M PRN IM DECREASED GLUCOSE; Start 04/29/18 at 10:30 Glucose (Glutose) 15 gm Q15M PRN BUCCAL DECREASED GLUCOSE; Start 04/29/18 at 10:30 Results Result Diagram: 04/26/18 0438 04/26/18 0438 Results 24 hrs Laboratory Tests Test 04/29/18 08:55 04/29/18 12:17 04/29/18 17:52 Bedside Glucose 167 174 161 NEGRITA GARLAND MD Apr 29, 2018 18:07
--- NOTE | 2018-04-29 18:59 | CONS ---
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 Expansion of the posterior T9 vertebral body resulting in central canal stenosis with AP diameter measuring 8 mm. CONT IV STEROIDS CONT AI PAIN CONTROL RADONC AND NEUROSURG F-UP MRI C - SPINE AND R HIP BONE SCAN -Multiple skeletal metastases in the axial and appendicular skeleton PLAN- START XRT Obesity. Weight loss 60 pounds during the last 2 years by diet PMS. Myopia. Anemia chronic disease. Anxiety disorder. Posttraumatic stress disorder. Pain in the left forearm with a history of fracture of ulna and radius. 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 Consultation Date/Type/Reason Admit Date/Time Apr 25, 2018 at 14:37 Initial Consult Date 04/25/18 Type of Consultation: HEMEONC 24 HR Interval Summary Free Text/Dictation ALL NOTED D/W DR BARON PLAN- START XRT Exam/Review of Systems Vital Signs Vitals Vital Signs Date Temp Pulse Resp B/P (MAP) Pulse Ox O2 O2 Flow FiO2 Time Delivery Rate 04/29/18 97.8 84 18 143/97 92 Room Air 08:37 (112) 04/29/18 2.0 08:00 Intake and Output 04/28/18 04/28/18 04/29/18 1515:00 23:00 07:00 IntakeIntake Total 300 ml 700 ml BalanceBalance 300 ml 700 ml Exam Constitutional: alert, oriented, well developed, distress, frail; No non-verbal, No other Psych: anxiety, depression; No no complaints, No nl mood/affect, No confusion, No suicidal, No other Head: normocephalic, atraumatic; No lacerations, No hematomas, No other Eyes: EOMI, nl lids, PERRL; No nl conjunctiva, No nl sclera, No icteric, No fundi, disc, No other ENMT: tympanic membranes; No nl external ears & nose, No nl lips & teeth, No nl nasal mucosa & septum, No mucosa pink and moist, No intubated, No other Neck: supple, non-tender, jvd, bruits; No masses, No thyromegaly, No nuchal rigidity, No other Respiratory: clear to auscultation, normal air movement, crackles/rales, diminished breath sounds, respirations; No congested cough, No intercostal retraction, No labored breathing, No tactile fremitus, No wheezing, No other Cardiovascular: regular rate and rhythm, bruits, jugular venous distention (JVD), systolic murmur; No nl pulses, No diastolic murmur, No edema, No gallop, No irregular rhythm, No murmurs/extra sounds, No rub, No S3, No S4, No other Gastrointestinal: soft, non-tender, bowel sounds, distended, hepatomegaly, other (Obesity with thick fatty layer of the anterior abdominal wall with no rebound.); No nl liver, spleen, No ascites, No firm, No mass, No rebound or guarding, No splenomegaly, No surgical scars, No tender Genitourinary - Female: nl adnexae, nl external genitalia, CVA tenderness; No CMT, No uterus, No other Musculoskeletal: joint tenderness, muscle tone, muscle weakness, spine non- tender (Severe tenderness of the intrascapular area lumbosacral area with great difficulty to get up to move. 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; No nl mental status, No nl speech, No nl strength, No confused, No DTR's symmetric, No focal weakness, No lethargic, No numbness, No reflexes, No unresponsive, No other Skin: nl turgor; No rash or lesions, No diaphoresis, No ecchymosis, No laceration, No puncture, No other Lymph: No nl lymph nodes, No enlarged, No nontender, No other BREAST- LARGE L BREAST MASS Medications Medications Current Medications Anastrozole (Arimidex) 1 mg DAILY PO Last administered on 04/29/18at 09:05; Admin Dose 1 MG; Start 04/25/18 at 19:00 Dexamethasone (Decadron) 4 mg Q8 IV Last administered on 04/29/18at 13:59; Admin Dose 4 MG; Start 04/25/18 at 22:00 Zolpidem Tartrate (Ambien) 10 mg HS PRN PO INSOMNIA; Start 04/25/18 at 23:30 Lorazepam (Ativan) 0.5 mg TID PRN PO ANXIETY Last administered on 04/29/18at 09:05; Admin Dose 0.5 MG; Start 04/25/18 at 23:30 Enoxaparin Sodium (Lovenox) 40 mg DAILY SC Last administered on 04/29/18at 09:07; Admin Dose 40 MG; Start 04/26/18 at 09:30 Magnesium Hydroxide (Milk Of Mag) 30 ml DAILY PRN PO CONSTIPATION Last administered on 04/29/18at 09:04; Admin Dose 30 ML; Start 04/27/18 at 21:00 Morphine Sulfate (morphine) 3 mg Q4H PRN IV SEVERE PAIN LEVEL 7-10 Last administered on 04/29/18at 13:59; Admin Dose 3 MG; Start 04/27/18 at 21:00 Amlodipine Besylate (Norvasc) 5 mg BID PO Last administered on 04/29/18at 09:06; Admin Dose 5 MG; Start 04/28/18 at 04:00 Polyethylene Glycol (Miralax) 17 gm BID PO ; Start 04/29/18 at 21:00 Docusate Sodium (Colace) 200 mg BID PO ; Start 04/29/18 at 21:00 Insulin Aspart (Novolog Insulin Pen) NOVOLOG *MILD* ALGORITHM Q6 SC Last administered on 04/29/18at 17:57; Admin Dose 1 UNIT; Start 04/29/18 at 12:00 Miscellaneous Information 1 ea NOTE XX ; Start 04/29/18 at 10:30 Glucose (Glutose) 15 gm Q15M PRN PO DECREASED GLUCOSE; Start 04/29/18 at 10:30 Glucose (Glutose) 22.5 gm Q15M PRN PO DECREASED GLUCOSE; Start 04/29/18 at 10:30 Dextrose (D50w Syringe) 25 ml Q15M PRN IV DECREASED GLUCOSE; Start 04/29/18 at 10:30 Dextrose (D50w Syringe) 50 ml Q15M PRN IV DECREASED GLUCOSE; Start 04/29/18 at 10:30 Glucagon (Glucagen) 1 mg Q15M PRN IM DECREASED GLUCOSE; Start 04/29/18 at 10:30 Glucose (Glutose) 15 gm Q15M PRN BUCCAL DECREASED GLUCOSE; Start 04/29/18 at 10:30 Benazepril HCl (Lotensin) 5 mg BID PO ; Start 04/29/18 at 21:00 Results Result Diagram: 04/26/1843704/26/18 043 Results 24 hrs Laboratory Tests Test 04/29/18 08:55 04/29/18 12:17 04/29/18 17:52 Bedside Glucose 167 174 161 [place] [address] Radiology Main Line: [phone] DIAGNOSTIC IMAGING REPORT Patient: LEANA VILLEDA : 1960 Age: 58 Sex: F MR #: [id number] DOS: 04/29/18 1118 Ordering MD: DES DUNAWAY MD Location: [facility] [place] Room/Bed: [facility] PROCEDURE: Whole body bone scan study CLINICAL INDICATION: 58 -year-old patient with breast cancer, for evaluation for skeletal metastases. TECHNIQUE: Following the intravenous injection of 23.5 mCi of Tc-99m MDP, whole body anterior and posterior planar images were obtained along with spot views of the head, neck and chest. COMPARISON: MRI of the lumbar and thoracic spine dated April 25, 2000, MRI of the right hip and cervical spine dated April 27, 2018 FINDINGS: Multiple abnormal focal areas of intensely increased tracer activity are seen in the calvarium, both shoulders, sternum, rib cages bilaterally, spine, pelvic bones bilaterally, right femoral head, femoral neck and right hip. No other definite abnormal areas of increased activity or asymmetries are visualized in the study and distribution of radionuclide is homogeneous in the skull, spine, rib cages, sternum, pelvis and visualized portions of the upper and lower extremities. Of incidental note, there is no evidence of mass abnormalities of the kidneys or obstructive uropathy. IMPRESSION: Multiple skeletal metastases in the axial and appendicular skeleton, as described above. RPTAT: HH .Ena Schroeder MD, MD Date Time Electronically viewed and signed by .Ena Schroeder MD, MD on 04/29/2018 16:21 .L/ CC: DES DUNAWAY MD [id number] DES DUNAWAY MD Apr 29, 2018 18:59
[2018-04-29] MEDS: POLYETHYLENE GLYCOL 17 GM PACKET PO SCH (21:00)
[2018-04-29] MEDS: DOCUSATE SODIUM 100 MG CAP PO SCH (21:06)
[2018-04-29 21:30] VITALS: BP 145/86; PULSE 93; RESP 18
[2018-04-30] MEDS: LORAZEPAM 0.5 MG TAB PO PRN (00:11)
[2018-04-30] MEDS: INSULIN ASPART [NOVOLOG] 3 ML PEN SC SCH ×4 (00:12→17:59)
[2018-04-30 02:34] VITALS: BP 121/76; PULSE 81; RESP 18
[2018-04-30] MEDS: morphine 4 MG/ML VIAL IV PRN ×5 (02:59→20:51)
[2018-04-30] MEDS: DEXAMETHASONE 4 MG/ML 1 ML INJ IV SCH ×3 (06:02→22:40)
[2018-04-30 07:32] VITALS: BP 143/93; PULSE 94; RESP 18
[2018-04-30] MEDS: DOCUSATE SODIUM 100 MG CAP PO SCH ×2 (08:58→20:45)
[2018-04-30] MEDS: AMLODIPINE 5 MG TAB PO SCH ×2 (08:58→20:45)
[2018-04-30] MEDS: BENAZEPRIL 5 MG TAB PO SCH ×2 (08:58→20:43)
[2018-04-30] MEDS: ANASTROZOLE 1 MG TAB PO SCH (09:02)
[2018-04-30] MEDS: POLYETHYLENE GLYCOL 17 GM PACKET PO SCH ×2 (09:03→20:41)
[2018-04-30] MEDS: ENOXAPARIN 40 MG/0.4 ML SYG SC SCH (09:10)
--- NOTE | 2018-04-30 13:16 | PN ---
Date/Time of Note Date/Time of Note DATE: 04/30/18 TIME: 13:11 Assessment/Plan VTE Prophylaxis Risk score (from Nsg)>0 risk: 3 SCD applied (from Ns): Yes Pharmacological prophylaxis: LMWH Lines/Catheters IV Catheter Type (from Nrsg): Saline Lock Central line still needed: No Urinary Cath still in place: No Reason Cath still needed: urinary retention Assessment/Plan Assessment/Plan 1. Cancer of the left and left breast. Exact type at this time unknown. 2. Severe pain in the interscapular and lumbar sacral area most probably metast atic lesion possible femoral fracture. pathologic fracture of T9 with 60% of loss of height. Neurosurgical consult planned. 3. Obesity. 4. Weight loss 60 pounds during the last 2 years by diet 5. PMS. 6. Myopia. 7. Anemia chronic disease. 8. Anxiety disorder. 9. Posttraumatic stress disorder. 10. Pain in the left forearm with a history of fracture of ulna and radius. 11. Tachycardia 12. Hypoxemia at night marginal improved after 2 L of nasal cannula oxygen. 13. Process at night. 14. Incomplete data Subjective 24 Hr Interval Summary Free Text/Dictation Pain medication is controlling pain 4 hours almost. Sometimes it is not reaching the 4 hours 3-1/2 but the patient is satisfied. Plan to initiate radiation therapy of her affected side of the spine. Appointment was arranged with radiology oncologist. Discussed with Dr. Palomino. Subjective hx not possible: pt critical Constitutional: diaphoresis, poor po, requiring O2 (At night she was breathing better after starting nasal cannula oxygen 2 L/min.); No no complaints, No improved, No chills, No disoriented, No febrile, No requ iring IVF, No other Eyes: redness; No no complaints, No pain, No discharge, No visual change, No other ENT: No no complaints, No bleeding, No pain, No congestion, No discharge, No dysphagia, No sore throat, No other Respiratory: cough, shortness of breath; No no complaints, No pain, No pleuritic pain, No sputum, No wheezing, No other Cardiovascular: lightheadedness, orthopenea, palpitations; No no complaints, No chest pain, No edema, No paroxysmal nocturnal dyspnea, No other Gastrointestinal: constipation, decreased appetite; No no complaints, No pain, No blood, No diarrhea, No flatus, No nausea, No passing stool, No vomiting, No other Genitourinary: dysuria; No no complaints, No bleeding, No discharge, No flank pain, No hematuria, No other Musculoskeletal: back pain, bone/joint pain, neck pain Skin: bruising; No no complaints, No erythema, No laceration, No pruritis, No rash, No skin lesions, No other Neurologic: dizziness; No no complaints, No confusion, No focal-weakness, No headache, No syncope, No seizure, No other Exam/Review of Systems Vital Signs Vitals Vital Signs Date Temp Pulse Resp B/P (MAP) Pulse Ox O2 O2 Flow FiO2 Time Delivery Rate 04/30/18 98.5 94 18 143/93 100 Room Air 07:32 (110) 04/29/18 2.0 20:15 Intake and Output 04/29/18 04/29/18 04/30/18 1515:00 23:00 07:00 IntakeIntake Total 300 ml 400 ml 300 ml BalanceBalance 300 ml 400 ml 300 ml Exam Constitutional: alert, oriented, well developed, distress, frail Psych: anxiety, confusion; No no complaints, No nl mood/affect, No depression, No suicidal, No other Head: normocephalic, atraumatic Eyes: nl conjunctiva, nl lids, PERRL; No EOMI, No nl sclera, No icteric, No fundi, disc, No other ENMT: tympanic membranes; No nl external ears & nose, No nl lips & teeth, No nl nasal mucosa & septum, No mucosa pink and moist, No intubated, No other Neck: jvd, bruits; No supple, No non-tender, No masses, No thyromegaly, No nuchal rigidity, No other Respiratory: congested cough, diminished breath sounds; No clear to auscultation, No normal air movement, No intercostal retraction, No labored breathing, No respirations, No tactile fremitus, No wheezing, No other Cardiovascular: bruits; No regular rate and rhythm, No nl pulses, No diastolic murmur, No edema, No gallop, No irregular rhythm, No jugular venous distention (JVD), No murmurs/extra sounds, No rub, No systolic murmur, No S3, No S4, No other Gastrointestinal: soft, nl liver, spleen, distended; No non-tender, No ascites, No bowel sounds, No firm, No hepatomegaly, No mass, No rebound or guarding, No splenomegaly, No surgical scars, No tender, No other Genitourinary - Female: nl adnexae, nl external genitalia Musculoskeletal: joint tenderness, muscle tone, muscle weakness; No nl extremities to inspection, No nl gait and stance, No range of motion, No spine non-tender, No swelling, No other Extremities: No normal pulses, No calf tenderness, No cyanosis, No clubbing, No edema, No pitting pedal edema, No palpable cord, No tenderness, No other 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, nl speech; No nl mental status, No nl strength, No confused, No DTR's symmetric, No focal weakness, No lethargic, No numbness, No reflexes, No unresponsive, No other Medications Medications Current Medications Anastrozole (Arimidex) 1 mg DAILY PO Last administered on 04/30/18 09:02; Admin Dose 1 MG; Start 04/25/18 at 19:00 Dexamethasone (Decadron) 4 mg Q8 IV Last administered on 04/30/18 06:02; Admin Dose 4 MG; Start 04/25/18 at 22:00 Zolpidem Tartrate (Ambien) 10 mg HS PRN PO INSOMNIA; Start 04/25/18 at 23:30 Lorazepam (Ativan) 0.5 mg TID PRN PO ANXIETY Last administered on 04/30/18at 00:11; Admin Dose 0.5 MG; Start 04/25/18 at 23:30 Enoxaparin Sodium (Lovenox) 40 mg DAILY SC Last administered on 04/30/18 09:10; Admin Dose 40 MG; Start 04/26/18 at 09:30 Magnesium Hydroxide (Milk Of Mag) 30 ml DAILY PRN PO CONSTIPATION Last administered on 04/29/18 09:04; Admin Dose 30 ML; Start 04/27/18 at 21:00 Morphine Sulfate (morphine) 3 mg Q4H PRN IV SEVERE PAIN LEVEL 7-10 Last administered on 04/30/18at 11:42; Admin Dose 3 MG; Start 04/27/18 at 21:00 Amlodipine Besylate (Norvasc) 5 mg BID PO Last administered on 04/30/18at 08:58; Admin Dose 5 MG; Start 04/28/18 at 04:00 Polyethylene Glycol (Miralax) 17 gm BID PO Last administered on 04/30/18at 09:03; Admin Dose 17 GM; Start 04/29/18 at 21:00 Docusate Sodium (Colace) 200 mg BID PO Last administered on 04/30/18at 08:58; Admin Dose 200 MG; Start 04/29/18 at 21:00 Insulin Aspart (Novolog Insulin Pen) NOVOLOG *MILD* ALGORITHM Q6 SC Last administered on 04/30/18at 06:01; Admin Dose 2 UNIT; Start 04/29/18 at 12:00 Miscellaneous Information 1 ea NOTE XX ; Start 04/29/18 at 10:30 Glucose (Glutose) 15 gm Q15M PRN PO DECREASED GLUCOSE; Start 04/29/18 at 10:30 Glucose (Glutose) 22.5 gm Q15M PRN PO DECREASED GLUCOSE; Start 04/29/18 at 10:30 Dextrose (D50w Syringe) 25 ml Q15M PRN IV DECREASED GLUCOSE; Start 04/29/18 at 10:30 Dextrose (D50w Syringe) 50 ml Q15M PRN IV DECREASED GLUCOSE; Start 04/29/18 at 10:30 Glucagon (Glucagen) 1 mg Q15M PRN IM DECREASED GLUCOSE; Start 04/29/18 at 10:30 Glucose (Glutose) 15 gm Q15M PRN BUCCAL DECREASED GLUCOSE; Start 04/29/18 at 10:30 Benazepril HCl (Lotensin) 5 mg BID PO Last administered on 04/30/18at 08:58; Admin Dose 5 MG; Start 04/29/18 at 21:00 Results Result Diagram: 04/26/18 0438 04/26/18 0438 Results 24 hrs Laboratory Tests Test 04/29/18 17:52 04/30/18 00:04 04/30/18 05:57 04/30/18 11:46 Bedside Glucose 161 207 183 160 RUSS JEROME MD Apr 30, 2018 13:16
[2018-04-30 14:04] VITALS: BP 126/70; PULSE 97; RESP 18
--- NOTE | 2018-04-30 15:03 | CONS ---
Date/Time of Note Date/Time of Note DATE: 04/30/18 TIME: 15:03 Assessment/Plan Assessment/Plan Chief Complaint/Hosp Course METASTATIC BREAST Cancer ( PRIMARY IS IN THE L BREAST ) with MULTIPLE BONY METS, PULMONARY METS SEVERE T-L SPINE PAIN WITH DIFFICULTIES TO AMBULATE MRI T-L SPINE- Diffuse osseous metastatic disease of the visualized thoracic spine (T10 - T12), the entire lumbar spine, sacrum, and bilateral iliac bones. Expansion of the posterior T9 vertebral body resulting in central canal stenosis with AP diameter measuring 8 mm. CONT IV STEROIDS CONT AI PAIN CONTROL RADONC AND NEUROSURG F-UP MRI C - SPINE AND R HIP BONE SCAN -Multiple skeletal metastases in the axial and appendicular skeleton PLAN- START XRT Obesity. Weight loss 60 pounds during the last 2 years by diet PMS. Myopia. Anemia chronic disease. Anxiety disorder. Posttraumatic stress disorder. Pain in the left forearm with a history of fracture of ulna and radius. 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 Date/Type/Reason Admit Date/Time Apr 25, 2018 at 14:37 Initial Consult Date 04/25/18 Type of Consultation: HEMEON Requesting Provider: RUSS JEROME MD 24 HR Interval Summary Free Text/Dictation ALL NOTED D/W RN Exam/Review of Systems Vital Signs Vitals Vital Signs Date Temp Pulse Resp B/P (MAP) Pulse Ox O2 O2 Flow FiO2 Time Delivery Rate 04/30/18 98.9 97 18 126/70 100 Room Air 14:04 (88) 04/29/18 2.0 20:15 Intake and Output 04/29/18 04/29/18 04/30/18 1515:00 23:00 07:00 IntakeIntake Total 300 ml 400 ml 300 ml BalanceBalance 300 ml 400 ml 300 ml Exam Constitutional: alert, oriented, well developed, distress, frail; No non-verbal, No other Psych: anxiety, depression; No no complaints, No nl mood/affect, No confusion, No suicidal, No other Head: normocephalic, atraumatic; No lacerations, No hematomas, No other Eyes: EOMI, nl lids, PERRL; No nl conjunctiva, No nl sclera, No icteric, No fundi, disc, No other ENMT: tympanic membranes; No nl external ears & nose, No nl lips & teeth, No nl nasal mucosa & septum, No mucosa pink and moist, No intubated, No other Neck: supple, non-tender, jvd, bruits; No masses, No thyromegaly, No nuchal rigidity, No other Respiratory: clear to auscultation, normal air movement, crackles/rales, diminished breath sounds, respirations; No congested cough, No intercostal retraction, No labored breathing, No tactile fremitus, No wheezing, No other Cardiovascular: regular rate and rhythm, bruits, jugular venous distention (JVD), systolic murmur; No nl pulses, No diastolic murmur, No edema, No gallop, No irregular rhythm, No murmurs/extra sounds, No rub, No S3, No S4, No other Gastrointestinal: soft, non-tender, bowel sounds, distended, hepatomegaly, other (Obesity with thick fatty layer of the anterior abdominal wall with no rebound.); No nl liver, spleen, No ascites, No firm, No mass, No rebound or guarding, No splenomegaly, No surgical scars, No tender Genitourinary - Female: nl adnexae, nl external genitalia, CVA tenderness; No CMT, No uterus, No other Musculoskeletal: joint tenderness, muscle tone, muscle weakness, spine non- tender (Severe tenderness of the intrascapular area lumbosacral area with great difficulty to get up to move. 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; No nl mental status, No nl speech, No nl strength, No confused, No DTR's symmetric, No focal weakness, No lethargic, No numbness, No reflexes, No unresponsive, No other Skin: nl turgor; No rash or lesions, No diaphoresis, No ecchymosis, No laceration, No puncture, No other Lymph: No nl lymph nodes, No enlarged, No nontender, No other BREAST- LARGE L BREAST MASS Medications Medications Current Medications Anastrozole (Arimidex) 1 mg DAILY PO Last administered on 04/30/18 09:02; Admin Dose 1 MG; Start 04/25/18 at 19:00 Dexamethasone (Decadron) 4 mg Q8 IV Last administered on 04/30/18 14:14; Admin Dose 4 MG; Start 04/25/18 at 22:00 Zolpidem Tartrate (Ambien) 10 mg HS PRN PO INSOMNIA; Start 04/25/18 at 23:30 Lorazepam (Ativan) 0.5 mg TID PRN PO ANXIETY Last administered on 04/30/18 00:11; Admin Dose 0.5 MG; Start 04/25/18 at 23:30 Enoxaparin Sodium (Lovenox) 40 mg DAILY SC Last administered on 04/30/18 09:10; Admin Dose 40 MG; Start 04/26/18 at 09:30 Magnesium Hydroxide (Milk Of Mag) 30 ml DAILY PRN PO CONSTIPATION Last administered on 04/29/18 09:04; Admin Dose 30 ML; Start 04/27/18 at 21:00 Morphine Sulfate (morphine) 3 mg Q4H PRN IV SEVERE PAIN LEVEL 7-10 Last administered on 04/30/18 11:42; Admin Dose 3 MG; Start 04/27/18 at 21:00 Amlodipine Besylate (Norvasc) 5 mg BID PO Last administered on 04/30/18 08:58; Admin Dose 5 MG; Start 04/28/18 at 04:00 Polyethylene Glycol (Miralax) 17 gm BID PO Last administered on 04/30/18 09:03; Admin Dose 17 GM; Start 04/29/18 at 21:00 Docusate Sodium (Colace) 200 mg BID PO Last administered on 04/30/18 08:58; Admin Dose 200 MG; Start 04/29/18 at 21:00 Insulin Aspart (Novolog Insulin Pen) NOVOLOG *MILD* ALGORITHM Q6 SC Last ad ministered on 04/30/18 13:16; Admin Dose 1 UNIT; Start 04/29/18 at 12:00 Miscellaneous Information 1 ea NOTE XX ; Start 04/29/18 at 10:30 Glucose (Glutose) 15 gm Q15M PRN PO DECREASED GLUCOSE; Start 04/29/18 at 10:30 Glucose (Glutose) 22.5 gm Q15M PRN PO DECREASED GLUCOSE; Start 04/29/18 at 10:30 Dextrose (D50w Syringe) 25 ml Q15M PRN IV DECREASED GLUCOSE; Start 04/29/18 at 10:30 Dextrose (D50w Syringe) 50 ml Q15M PRN IV DECREASED GLUCOSE; Start 04/29/18 at 10:30 Glucagon (Glucagen) 1 mg Q15M PRN IM DECREASED GLUCOSE; Start 04/29/18 at 10:30 Glucose (Glutose) 15 gm Q15M PRN BUCCAL DECREASED GLUCOSE; Start 04/29/18 at 10:30 Benazepril HCl (Lotensin) 5 mg BID PO Last administered on 04/30/18at 08:58; Admin Dose 5 MG; Start 04/29/18 at 21:00 Results Result Diagram: 04/26/18 0438 04/26/18 0438 Results 24 hrs Laboratory Tests Test 04/29/18 17:52 04/30/18 00:04 04/30/18 05:57 04/30/18 11:46 Bedside Glucose 161 207 183 160 DES DUNAWAY MD Apr 30, 2018 15:03
[2018-04-30 19:29] VITALS: BP 120/61; PULSE 90; RESP 18
[2018-05-01] MEDS: morphine 4 MG/ML VIAL IV PRN ×5 (00:57→20:31)
[2018-05-01] MEDS: INSULIN ASPART [NOVOLOG] 3 ML PEN SC SCH ×4 (01:00→18:58)
[2018-05-01 02:10] VITALS: BP 138/84; PULSE 78; RESP 18
[2018-05-01] MEDS: DEXAMETHASONE 4 MG/ML 1 ML INJ IV SCH ×3 (06:05→22:34)
[2018-05-01 07:44] VITALS: BP 108/71; PULSE 84; RESP 18
[2018-05-01] MEDS: BENAZEPRIL 5 MG TAB PO SCH ×2 (09:00→20:33)
[2018-05-01] MEDS: DOCUSATE SODIUM 100 MG CAP PO SCH ×2 (09:34→20:32)
[2018-05-01] MEDS: ANASTROZOLE 1 MG TAB PO SCH (09:35)
[2018-05-01] MEDS: POLYETHYLENE GLYCOL 17 GM PACKET PO SCH ×2 (09:36→20:33)
[2018-05-01] MEDS: ENOXAPARIN 40 MG/0.4 ML SYG SC SCH (09:36)
[2018-05-01] MEDS: AMLODIPINE 5 MG TAB PO SCH ×2 (09:36→20:33)
[2018-05-01 14:21] VITALS: BP 119/84; PULSE 86; RESP 18
--- NOTE | 2018-05-01 17:03 | CONS ---
Date/Time of Note Date/Time of Note DATE: 05/01/18 TIME: 17:02 Assessment/Plan Assessment/Plan Chief Complaint/Hosp Course Assessment: Sinus tachycardia - appears physiologic secondary to pain, hear rates normalized with pain control Hypertension Metastatic breast cancer - follow up oncology and radiation oncology, planning to start radiation therapy Back pain - metastatic disease to the spine, follow up neurosurgery Recommendations: -continue benazepril 5mg BID -continue amlodipine 5mg BID Consultation Date/Type/Reason Admit Date/Time Apr 25, 2018 at 14:37 Initial Consult Date 04/26/18 Type of Consultation: Cardiology 24 HR Interval Summary Free Text/Dictation Blood pressures controlled. Planning to start radiation therapy today. Detailed Summary Additional Comments 14 point review of systems without changes. Exam/Review of Systems Vital Signs Vitals Vital Signs Date Temp Pulse Resp B/P (MAP) Pulse Ox O2 O2 Flow FiO2 Time Delivery Rate 05/01/18 98.3 86 18 119/84 94 Room Air 14:21 (96) 05/01/18 2.0 07:45 Intake and Output 04/30/18 04/30/18 05/01/18 1515:00 23:00 07:00 IntakeIntake Total 800 ml 400 ml 480 ml BalanceBalance 800 ml 400 ml 480 ml Exam Constitutional: alert, well developed Psych: no complaints, nl mood/affect Head: normocephalic, atraumatic Eyes: nl conjunctiva, nl lids ENMT: nl external ears & nose, nl nasal mucosa & septum Neck: supple, non-tender Respiratory: clear to auscultation, normal air movement Cardiovascular: regular rate and rhythm Gastrointestinal: soft, non-tender Musculoskeletal: nl extremities to inspection Extremities: No cyanosis, No clubbing, No edema 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: nl mental status, nl speech Medications Medications Current Medications Anastrozole (Arimidex) 1 mg DAILY PO Last administered on 05/01/18at 09:35; Admin Dose 1 MG; Start 04/25/18 at 19:00 Dexamethasone (Decadron) 4 mg Q8 IV Last administered on 05/01/18at 15:07; Admin Dose 4 MG; Start 04/25/18 at 22:00 Zolpidem Tartrate (Ambien) 10 mg HS PRN PO INSOMNIA; Start 04/25/18 at 23:30 Lorazepam (Ativan) 0.5 mg TID PRN PO ANXIETY Last administered on 04/30/18at 00:11; Admin Dose 0.5 MG; Start 04/25/18 at 23:30 Enoxaparin Sodium (Lovenox) 40 mg DAILY SC Last administered on 05/01/18 09:36; Admin Dose 40 MG; Start 04/26/18 at 09:30 Magnesium Hydroxide (Milk Of Mag) 30 ml DAILY PRN PO CONSTIPATION Last administered on 04/29/18 09:04; Admin Dose 30 ML; Start 04/27/18 at 21:00 Morphine Sulfate (morphine) 3 mg Q4H PRN IV SEVERE PAIN LEVEL 7-10 Last administered on 05/01/18 15:40; Admin Dose 3 MG; Start 04/27/18 at 21:00 Amlodipine Besylate (Norvasc) 5 mg BID PO Last administered on 05/01/18 09: 36; Admin Dose 5 MG; Start 04/28/18 at 04:00 Polyethylene Glycol (Miralax) 17 gm BID PO Last administered on 05/01/18 09:36; Admin Dose 17 GM; Start 04/29/18 at 21:00 Docusate Sodium (Colace) 200 mg BID PO Last administered on 05/01/18 09:34; Admin Dose 200 MG; Start 04/29/18 at 21:00 Miscellaneous Information 1 ea NOTE XX ; Start 04/29/18 at 10:30 Glucose (Glutose) 15 gm Q15M PRN PO DECREASED GLUCOSE; Start 04/29/18 at 10:30 Glucose (Glutose) 22.5 gm Q15M PRN PO DECREASED GLUCOSE; Start 04/29/18 at 10:30 Dextrose (D50w Syringe) 25 ml Q15M PRN IV DECREASED GLUCOSE; Start 04/29/18 at 10:30 Dextrose (D50w Syringe) 50 ml Q15M PRN IV DECREASED GLUCOSE; Start 04/29/18 at 10:30 Glucagon (Glucagen) 1 mg Q15M PRN IM DECREASED GLUCOSE; Start 04/29/18 at 10:30 Glucose (Glutose) 15 gm Q15M PRN BUCCAL DECREASED GLUCOSE; Start 04/29/18 at 10:30 Benazepril HCl (Lotensin) 5 mg BID PO Last administered on 04/30/18at 20:43; Admin Dose 5 MG; Start 04/29/18 at 21:00 Insulin Aspart (Novolog Insulin Pen) NOVOLOG *MILD* ALGORI... Q6 SC Last administered on 05/01/18at 12:43; Admin Dose 1 UNIT; Start 05/01/18 at 12:00 Oxycodone HCl (Oxycontin) 20 mg BID PO ; Start 05/01/18 at 21:00 Results Results 24 hrs Laboratory Tests Test 04/30/18 17:56 04/30/18 20:03 05/01/18 00:49 05/01/18 06:07 Bedside Glucose 187 280 H 225 H 186 Test 05/01/18 12:13 Bedside Glucose 164 NEGRITA GARLAND MD May 01, 2018 17:03
--- NOTE | 2018-05-01 18:28 | CONS ---
Date/Time of Note Date/Time of Note DATE: 05/01/18 TIME: 18:27 Assessment/Plan Assessment/Plan Chief Complaint/Hosp Course METASTATIC BREAST Cancer ( PRIMARY IS IN THE L BREAST ) with MULTIPLE BONY METS, PULMONARY METS SEVERE T-L SPINE PAIN WITH DIFFICULTIES TO AMBULATE MRI T-L SPINE- Diffuse osseous metastatic disease of the visualized thoracic spine (T10 - T12), the entire lumbar spine, sacrum, and bilateral iliac bones. Expansion of the posterior T9 vertebral body resulting in central canal stenosis with AP diameter measuring 8 mm. CONT IV STEROIDS CONT AI PAIN CONTROL RADONC AND NEUROSURG F-UP MRI C - SPINE AND R HIP BONE SCAN -Multiple skeletal metastases in the axial and appendicular skeleton PLAN- START XRT TODAY PAIN ADD OXYCONTIN Obesity. Weight loss 60 pounds during the last 2 years by diet PMS. Myopia. Anemia chronic disease. Anxiety disorder. Posttraumatic stress disorder. Pain in the left forearm with a history of fracture of ulna and radius. Tachycardia Incomplete data SOCIAL ISSUES [employer] Consultation Date/Type/Reason Admit Date/Time Apr 25, 2018 at 14:37 Initial Consult Date 04/25/18 Type of Consultation: [facility] Requesting Provider: RUSS JEROME MD 24 HR Interval Summary Free Text/Dictation D/W PT AND [employer] Exam/Review of Systems Vital Signs Vitals Vital Signs Date Temp Pulse Resp B/P (MAP) Pulse Ox O2 O2 Flow FiO2 Time Delivery Rate 05/01/18 98.3 86 18 119/84 94 Room Air 14:21 (96) 05/01/18 2.0 07:45 Intake and Output 04/30/18 04/30/18 05/01/18 1515:00 23:00 07:00 IntakeIntake Total 800 ml 400 ml 480 ml BalanceBalance 800 ml 400 ml 480 ml Exam Constitutional: alert, oriented, well developed, distress, frail; No non-verbal, No other Psych: anxiety, depression; No no complaints, No nl mood/affect, No confusion, No suicidal, No other Head: normocephalic, atraumatic; No lacerations, No hematomas, No other Eyes: EOMI, nl lids, PERRL; No nl conjunctiva, No nl sclera, No icteric, No fundi, disc, No other ENMT: tympanic membranes; No nl external ears & nose, No nl lips & teeth, No nl nasal mucosa & septum, No mucosa pink and moist, No intubated, No other Neck: supple, non-tender, jvd, bruits; No masses, No thyromegaly, No nuchal rigidity, No other Respiratory: clear to auscultation, normal air movement, crackles/rales, diminished breath sounds, respirations; No congested cough, No intercostal retraction, No labored breathing, No tactile fremitus, No wheezing, No other Cardiovascular: regular rate and rhythm, bruits, jugular venous distention (JVD), systolic murmur; No nl pulses, No diastolic murmur, No edema, No gallop, No irregular rhythm, No murmurs/extra sounds, No rub, No S3, No S4, No other Gastrointestinal: soft, non-tender, bowel sounds, distended, hepatomegaly, other (Obesity with thick fatty layer of the anterior abdominal wall with no rebound.); No nl liver, spleen, No ascites, No firm, No mass, No rebound or guarding, No splenomegaly, No surgical scars, No tender Genitourinary - Female: nl adnexae, nl external genitalia, CVA tenderness; No CMT, No uterus, No other Musculoskeletal: joint tenderness, muscle tone, muscle weakness, spine non- tender (Severe tenderness of the intrascapular area lumbosacral area with great difficulty to get up to move. 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: [employer]ER 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; No nl mental status, No nl speech, No nl strength, No confused, No DTR's symmetric, No focal weakness, No lethargic, No numbness, No reflexes, No unresponsive, No other Skin: nl turgor; No rash or lesions, No diaphoresis, No ecchymosis, No laceration, No puncture, No other Lymph: No nl lymph nodes, No enlarged, No nontender, No other BREAST- LARGE L BREAST MASS Medications Medications Current Medications Anastrozole (Arimidex) 1 mg DAILY PO Last administered on 05/01/18 09:35; Admin Dose 1 MG; Start 04/25/18 at 19:00 Dexamethasone (Decadron) 4 mg Q8 IV Last administered on 05/01/18at 15:07; Admin Dose 4 MG; Start 04/25/18 at 22:00 Zolpidem Tartrate (Ambien) 10 mg HS PRN PO INSOMNIA; Start 04/25/18 at 23:30 Lorazepam (Ativan) 0.5 mg TID PRN PO ANXIETY Last administered on 04/30/18at 00:11; Admin Dose 0.5 MG; Start 04/25/18 at 23:30 Enoxaparin Sodium (Lovenox) 40 mg DAILY SC Last administered on 05/01/18 09:36; Admin Dose 40 MG; Start 04/26/18 at 09:30 Magnesium Hydroxide (Milk Of Mag) 30 ml DAILY PRN PO CONSTIPATION Last administered on 04/29/18 09:04; Admin Dose 30 ML; Start 04/27/18 at 21:00 Morphine Sulfate (morphine) 3 mg Q4H PRN IV SEVERE PAIN LEVEL 7-10 Last administered on 05/01/18at 15:40; Admin Dose 3 MG; Start 04/27/18 at 21:00 Amlodipine Besylate (Norvasc) 5 mg BID PO Last administered on 05/01/18 09:36; Admin Dose 5 MG; Start 04/28/18 at 04:00 Polyethylene Glycol (Miralax) 17 gm BID PO Last administered on 05/01/18 09:36; Admin Dose 17 GM; Start 04/29/18 at 21:00 Docusate Sodium (Colace) 200 mg BID PO Last administered on 05/01/18 09:34; Admin Dose 200 MG; Start 04/29/18 at 21:00 Miscellaneous Information 1 ea NOTE XX ; Start 04/29/18 at 10:30 Glucose (Glutose) 15 gm Q15M PRN PO DECREASED GLUCOSE; Start 04/29/18 at 10:30 Glucose (Glutose) 22.5 gm Q15M PRN PO DECREASED GLUCOSE; Start 04/29/18 at 10:30 Dextrose (D50w Syringe) 25 ml Q15M PRN IV DECREASED GLUCOSE; Start 04/29/18 at 10:30 Dextrose (D50w Syringe) 50 ml Q15M PRN IV DECREASED GLUCOSE; Start 04/29/18 at 10:30 Glucagon (Glucagen) 1 mg Q15M PRN IM DECREASED GLUCOSE; Start 04/29/18 at 10:30 Glucose (Glutose) 15 gm Q15M PRN BUCCAL DECREASED GLUCOSE; Start 04/29/18 at 10:30 Benazepril HCl (Lotensin) 5 mg BID PO Last administered on 04/30/18at 20:43; Admin Dose 5 MG; Start 04/29/18 at 21:00 Insulin Aspart (Novolog Insulin Pen) NOVOLOG *MILD* ALGORI... Q6 SC Last administered on 05/01/18at 12:43; Admin Dose 1 UNIT; Start 05/01/18 at 12:00 Oxycodone HCl (Oxycontin) 20 mg BID PO ; Start 05/01/18 at 21:00 Results Results 24 hrs Laboratory Tests Test 04/30/18 20:03 05/01/18 00:49 05/01/18 06:07 05/01/18 12:13 Bedside Glucose 280 H 225 H 186 164 DES DUNAWAY MD May 01, 2018 18:28
[2018-05-01 19:45] VITALS: BP 122/85; PULSE 88; RESP 20
[2018-05-01] MEDS: oxyCODONE (CR) 20 MG TAB [oxyCONTIN] PO SCH (20:36)
--- NOTE | 2018-05-01 23:49 | PN ---
Date/Time of Note Date/Time of Note DATE: 05/01/18 TIME: 23:49 Assessment/Plan VTE Prophylaxis Risk score (from Nsg)>0 risk: 4 SCD applied (from Nsg): Yes SCD contraindicated: other (walking. Moving.) Pharmacological prophylaxis: LMWH Lines/Catheters IV Catheter Type (from Nrsg): Saline Lock Central line still needed: No Urinary Cath still in place: No Reason Cath still needed: urinary retention Assessment/Plan Assessment/Plan 1. Cancer of the left and left breast. Exact type at this time unknown. 2. Severe pain in the interscapular and lumbar sacral area most probably metastatic lesion possible femoral fracture. pathologic fracture of T9 with 60% of loss of height. Neurosurgical consult planned. 3. Obesity. 4. Weight loss 60 pounds during the last 2 years by diet 5. PMS. 6. Myopia. 7. Anemia chronic disease. 8. Anxiety disorder. 9. Posttraumatic stress disorder. 10. Pain in the left forearm with a history of fracture of ulna and radius. 11. Tachycardia 12. Hypoxemia at night marginal improved after 2 L of nasal cannula oxygen. 13. Process at night. 14. Incomplete data Subjective 24 Hr Interval Summary Free Text/Dictation Back pain. Sleeplessness. pain is better controlled. Subjective hx not possible: pt critical Constitutional: poor po, requiring IVF, requiring O2; No no complaints, No improved, No chills, No diaphoresis, No disoriented, No febrile, No other Eyes: No no complaints, No pain, No discharge, No redness, No visual change, No other ENT: No no complaints, No bleeding, No pain, No congestion, No discharge, No dysphagia, No sore throat, No other Respiratory: cough, shortness of breath; No no complaints, No pain, No pleuritic pain, No sputum, No wheezing, No other Cardiovascular: chest pain, lightheadedness, orthopenea, palpitations; No no complaints, No edema, No paroxysmal nocturnal dyspnea, No other Gastrointestinal: constipation, flatus, nausea, passing stool; No no complaints, No pain, No blood, No decreased appetite, No diarrhea, No vomiting, No other Genitourinary: dysuria; No no complaints, No bleeding, No discharge, No flank pain, No hematuria, No other Musculoskeletal: back pain, bone/joint pain, neck pain; No no complaints, No restricted range of motion, No swelling, No other Skin: bruising, pruritis; No no complaints, No erythema, No laceration, No rash, No skin lesions, No other Neurologic: headache; No no complaints, No confusion, No dizziness, No focal-weakness, No syncope, No seizure, No other Endocrine: No no complaints, No polyuria, No polydypsia, No dry skin, No temp intolerance, No other Lymphatic: No no complaints, No adenopathy, No tender nodes, No lymphadema, No other Psychological: anxiety, depression; No no complaints, No nl mood/affect, No confusion, No suicidal, No other Exam/Review of Systems Vital Signs Vitals Vital Signs Date Temp Pulse Resp B/P (MAP) Pulse Ox O2 O2 Flow FiO2 Time Delivery Rate 05/01/18 97.7 88 20 122/85 98 Room Air 19:45 (97) 05/01/18 2.0 07:45 Intake and Output 04/30/18 04/30/18 05/01/18 1515:00 23:00 07:00 IntakeIntake Total 800 ml 400 ml 480 ml BalanceBalance 800 ml 400 ml 480 ml Exam Constitutional: alert, oriented, well developed, distress, frail; No non-verbal, No obese, No other Psych: nl mood/affect, anxiety, depression; No no complaints, No confusion, No suicidal, No other Head: normocephalic, atraumatic; No lacerations, No hematomas, No other Eyes: nl conjunctiva, EOMI, nl lids, PERRL; No nl sclera, No icteric, No fundi, disc, No other ENMT: No nl external ears & nose, No nl lips & teeth, No nl nasal mucosa & septum, No mucosa pink and moist, No intubated, No tympanic membranes, No other Neck: non-tender, jvd, bruits, nuchal rigidity; No supple, No masses, No thyromegaly, No other Respiratory: clear to auscultation, normal air movement, diminished breath sounds; No congested cough, No crackles/rales, No intercostal retraction, No labored breathing, No respirations, No tactile fremitus, No wheezing, No other Cardiovascular: regular rate and rhythm, jugular venous distention (JVD); No nl pulses, No bruits, No diastolic murmur, No edema, No gallop, No irregular rhythm, No murmurs/extra sounds, No rub, No systolic murmur, No S3, No S4, No other Gastrointestinal: soft, nl liver, spleen, bowel sounds; No non-tender, No ascites, No distended, No firm, No hepatomegaly, No mass, No rebound or guarding, No splenomegaly, No surgical scars, No tender, No other Genitourinary - Female: nl adnexae, nl external genitalia Musculoskeletal: joint tenderness, other (moderate tenderness of the neck, interscapular and l/s areas.) 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: PRODUCT MGR 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, nl mental status, nl speech, nl strength; No confused, No DTR's symmetric, No focal weakness, No lethargic, No numbness, No reflexes, No unresponsive, No other Medications Medications Current Medications Anastrozole (Arimidex) 1 mg DAILY PO Last administered on 05/01/18 09:35; Admin Dose 1 MG; Start 04/25/18 at 19:00 Dexamethasone (Decadron) 4 mg Q8 IV Last administered on 05/01/18 22:34; Admin Dose 4 MG; Start 04/25/18 at 22:00 Zolpidem Tartrate (Ambien) 10 mg HS PRN PO INSOMNIA; Start 04/25/18 at 23:30 Lorazepam (Ativan) 0.5 mg TID PRN PO ANXIETY Last administered on 04/30/18 00:11; Admin Dose 0.5 MG; Start 04/25/18 at 23:30 Enoxaparin Sodium (Lovenox) 40 mg DAILY SC Last administered on 05/01/18 09:36; Admin Dose 40 MG; Start 04/26/18 at 09:30 Magnesium Hydroxide (Milk Of Mag) 30 ml DAILY PRN PO CONSTIPATION Last administered on 04/29/18 09:04; Admin Dose 30 ML; Start 04/27/18 at 21:00 Morphine Sulfate (morphine) 3 mg Q4H PRN IV SEVERE PAIN LEVEL 7-10 Last administered on 05/01/18 20:31; Admin Dose 3 MG; Start 04/27/18 at 21:00 Amlodipine Besylate (Norvasc) 5 mg BID PO Last administered on 05/01/18 20:33; Admin Dose 5 MG; Start 04/28/18 at 04:00 Polyethylene Glycol (Miralax) 17 gm BID PO Last administered on 05/01/18at 20:33; Admin Dose 17 GM; Start 04/29/18 at 21:00 Docusate Sodium (Colace) 200 mg BID PO Last administered on 05/01/18at 20:32; Admin Dose 200 MG; Start 04/29/18 at 21:00 Miscellaneous Information 1 ea NOTE XX ; Start 04/29/18 at 10:30 Glucose (Glutose) 15 gm Q15M PRN PO DECREASED GLUCOSE; Start 04/29/18 at 10:30 Glucose (Glutose) 22.5 gm Q15M PRN PO DECREASED GLUCOSE; Start 04/29/18 at 10:30 Dextrose (D50w Syringe) 25 ml Q15M PRN IV DECREASED GLUCOSE; Start 04/29/18 at 10:30 Dextrose (D50w Syringe) 50 ml Q15M PRN IV DECREASED GLUCOSE; Start 04/29/18 at 10:30 Glucagon (Glucagen) 1 mg Q15M PRN IM DECREASED GLUCOSE; Start 04/29/18 at 10:30 Glucose (Glutose) 15 gm Q15M PRN BUCCAL DECREASED GLUCOSE; Start 04/29/18 at 10:30 Benazepril HCl (Lotensin) 5 mg BID PO Last administered on 05/01/18at 20:33; Admin Dose 5 MG; Start 04/29/18 at 21:00 Insulin Aspart (Novolog Insulin Pen) NOVOLOG *MILD* ALGORI... Q6 SC Last administered on 05/01/18at 18:58; Admin Dose 2 UNIT; Start 05/01/18 at 12:00 Oxycodone HCl (Oxycontin) 20 mg BID PO Last administered on 05/01/18at 20:36; Admin Dose 20 MG; Start 05/01/18 at 21:00 Results Results 24 hrs Laboratory Tests Test 05/01/18 00:49 05/01/18 06:07 05/01/18 12:13 05/01/18 18:54 Bedside Glucose 225 H 186 164 187 Test 05/01/18 22:35 Bedside Glucose 194 RUSS JEROME MD May 01, 2018 23:49
[2018-05-02] MEDS: morphine 4 MG/ML VIAL IV PRN ×6 (00:29→23:32)
[2018-05-02 02:48] VITALS: BP 131/71; PULSE 72; RESP 20
[2018-05-02] MEDS: INSULIN ASPART [NOVOLOG] 3 ML PEN SC SCH ×4 (05:25→18:00)
[2018-05-02] MEDS: DEXAMETHASONE 4 MG/ML 1 ML INJ IV SCH ×3 (05:25→23:32)
[2018-05-02 07:57] VITALS: BP 127/66; PULSE 75; RESP 20
[2018-05-02] MEDS: DOCUSATE SODIUM 100 MG CAP PO SCH ×2 (08:43→20:54)
[2018-05-02] MEDS: POLYETHYLENE GLYCOL 17 GM PACKET PO SCH ×2 (08:43→20:57)
[2018-05-02] MEDS: oxyCODONE (CR) 20 MG TAB [oxyCONTIN] PO SCH ×2 (08:44→20:59)
[2018-05-02] MEDS: ANASTROZOLE 1 MG TAB PO SCH (08:44)
[2018-05-02] MEDS: BENAZEPRIL 5 MG TAB PO SCH ×2 (08:45→20:55)
[2018-05-02] MEDS: ENOXAPARIN 40 MG/0.4 ML SYG SC SCH (08:45)
[2018-05-02] MEDS: AMLODIPINE 5 MG TAB PO SCH ×2 (08:46→20:55)
--- NOTE | 2018-05-02 10:43 | PN ---
Date/Time of Note Date/Time of Note DATE: 05/02/18 TIME: 10:39 Assessment/Plan VTE Prophylaxis Risk score (from Ns)>0 risk: 4 SCD applied (from Ns): Yes SCD contraindicated: low risk/ambulating, other (walks, moves.) Pharmacological prophylaxis: LMWH Pharm contraindication: other Lines/Catheters [facility] [place] [employer] line still needed: No Urinary Cath still in place: No Reason Cath still needed: urinary retention Assessment/Plan Assessment/Plan 1. Cancer of the left and left breast. Exact type at this time unknown. 2. Severe pain in the interscapular and lumbar sacral area most probably metastatic lesion possible femoral fracture. pathologic fracture of T9 with 60% of loss of height. Neurosurgical consult planned. 3. Obesity. 4. Weight loss 60 pounds during the last 2 years by diet 5. PMS. 6. Myopia. 7. Anemia chronic disease. 8. Anxiety disorder. 9. Posttraumatic stress disorder. 10. Pain in the left forearm with a history of fracture of ulna and radius. 11. Tachycardia 12. Hypoxemia at night marginal improved after 2 L of nasal cannula oxygen. 13. Process at night. 14. 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 15.Pain syndrome. Incomplete data Subjective 24 Hr Interval Summary Free Text/Dictation Pain persists. I need a pain medication regularly. Constipation. Subjective hx not possible: pt critical Constitutional: poor po; No no complaints, No improved, No chills, No diaphoresis, No disoriented, No febrile, No requiring IVF, No requiring O2, No other Eyes: No no complaints, No pain, No discharge, No redness, No visual change, No other ENT: No no complaints, No bleeding, No pain, No congestion, No discharge, No dysphagia, No sore throat, No other Respiratory: cough, shortness of breath; No no complaints, No pain, No pleuritic pain, No sputum, No wheezing, No other Cardiovascular: chest pain, lightheadedness, orthopenea, palpitations; No no complaints, No edema, No paroxysmal nocturnal dyspnea, No other Gastrointestinal: constipation, decreased appetite; No no complaints, No pain, No blood, No diarrhea, No flatus, No nausea, No passing stool, No vomiting, No other Genitourinary: dysuria; No no complaints, No bleeding, No discharge, No flank pain, No hematuria, No other Musculoskeletal: back pain, bone/joint pain; No no complaints, No neck pain, No restricted range of motion, No swelling, No other Skin: erythema, pruritis; No no complaints, No bruising, No laceration, No rash, No skin lesions, No other Neurologic: headache; No no complaints, No confusion, No dizziness, No focal-weakness, No syncope, No seizure, No other Endocrine: dry skin Lymphatic: No no complaints, No adenopathy, No tender nodes, No lymphadema, No other Psychological: anxiety, confusion; No no complaints, No nl mood/affect, No depression, No suicidal, No other Immunologic: pruritis Exam/Review of Systems Vital Signs Vitals Vital Signs Date Temp Pulse Resp B/P (MAP) Pulse Ox O2 O2 Flow FiO2 Time Delivery Rate 05/02/18 98.1 75 20 127/66 96 Room Air 07:57 (86) 05/01/18 2.0 07:45 Intake and Output 05/01/18 05/01/18 05/02/18 1414:59 22:59 06:59 IntakeIntake Total 240 ml 1600 ml BalanceBalance 240 ml 1600 ml Exam Constitutional: alert, oriented, well developed, distress, frail; No non-verbal, No obese, No other Psych: nl mood/affect, anxiety, depression; No no complaints, No confusion, No suicidal, No other Head: normocephalic, atraumatic; No lacerations, No hematomas, No other Eyes: EOMI, nl lids; No nl conjunctiva, No nl sclera, No PERRL, No icteric, No fundi, disc, No other ENMT: No nl external ears & nose, No nl lips & teeth, No nl nasal mucosa & septum, No mucosa pink and moist, No intubated, No tympanic membranes, No other Neck: jvd; No supple, No non-tender, No bruits, No masses, No thyromegaly, No nuchal rigidity, No other Respiratory: clear to auscultation, diminished breath sounds; No normal air movement, No congested cough, No crackles/rales, No intercostal retraction, No labored breathing, No respirations, No tactile fremitus, No wheezing, No other Cardiovascular: regular rate and rhythm; No nl pulses, No bruits, No diastolic murmur, No edema, No gallop, No irregular rhythm, No jugular venous distention (JVD), No murmurs/extra sounds, No rub, No systolic murmur, No S3, No S4, No other Gastrointestinal: bowel sounds; No soft, No nl liver, spleen, No non-tender, No ascites, No distended, No firm, No hepatomegaly, No mass, No rebound or guarding, No splenomegaly, No surgical scars, No tender, No other Musculoskeletal: nl extremities to inspection, joint tenderness, muscle tone; No nl gait and stance, No muscle weakness, No range of motion, No spine non- tender, No swelling, No other Extremities: No normal pulses, No calf tenderness, No cyanosis, No clubbing, No edema, No pitting pedal edema, No palpable cord, No tenderness, No other 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: CARTOON ARTIST 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, numbness; No nl mental status, No nl speech, No nl strength, No confused, No DTR's symmetric, No focal weakness, No lethargic, No reflexes, No unresponsive, No other Skin: nl turgor; No rash or lesions, No diaphoresis, No ecchymosis, No laceration, No puncture, No other Lymph: nl lymph nodes; No enlarged, No nontender, No other Medications Medications Current Medications Anastrozole (Arimidex) 1 mg DAILY PO Last administered on 05/02/18at 08:44; Admin Dose 1 MG; Start 04/25/18 at 19:00 Dexamethasone (Decadron) 4 mg Q8 IV Last administered on 05/02/18at 05:25; Admin Dose 4 MG; Start 04/25/18 at 22:00 Zolpidem Tartrate (Ambien) 10 mg HS PRN PO INSOMNIA; Start 04/25/18 at 23:30 Lorazepam (Ativan) 0.5 mg TID PRN PO ANXIETY Last administered on 04/30/18at 00:11; Admin Dose 0.5 MG; Start 04/25/18 at 23:30 Enoxaparin Sodium (Lovenox) 40 mg DAILY SC Last administered on 05/02/18at 08:45; Admin Dose 40 MG; Start 04/26/18 at 09:30 Magnesium Hydroxide (Milk Of Mag) 30 ml DAILY PRN PO CONSTIPATION Last administered on 04/29/18at 09:04; Admin Dose 30 ML; Start 04/27/18 at 21:00 Morphine Sulfate (morphine) 3 mg Q4H PRN IV SEVERE PAIN LEVEL 7-10 Last administered on 05/02/18at 08:46; Admin Dose 3 MG; Start 04/27/18 at 21:00 Amlodipine Besylate (Norvasc) 5 mg BID PO Last administered on 05/02/18at 0 8:46; Admin Dose 5 MG; Start 04/28/18 at 04:00 Polyethylene Glycol (Miralax) 17 gm BID PO Last administered on 05/02/18 08:4 3; Admin Dose 17 GM; Start 04/29/18 at 21:00 Docusate Sodium (Colace) 200 mg BID PO Last administered on 05/02/18 08:43; Admin Dose 200 MG; Start 04/29/18 at 21:00 Miscellaneous Information 1 ea NOTE XX ; Start 04/29/18 at 10:30 Glucose (Glutose) 15 gm Q15M PRN PO DECREASED GLUCOSE; Start 04/29/18 at 10:30 Glucose (Glutose) 22.5 gm Q15M PRN PO DECREASED GLUCOSE; Start 04/29/18 at 10:30 Dextrose (D50w Syringe) 25 ml Q15M PRN IV DECREASED GLUCOSE; Start 04/29/18 at 10:30 Dextrose (D50w Syringe) 50 ml Q15M PRN IV DECREASED GLUCOSE; Start 04/29/18 at 10:30 Glucagon (Glucagen) 1 mg Q15M PRN IM DECREASED GLUCOSE; Start 04/29/18 at 10:30 Glucose (Glutose) 15 gm Q15M PRN BUCCAL DECREASED GLUCOSE; Start 04/29/18 at 10:30 Benazepril HCl (Lotensin) 5 mg BID PO Last administered on 05/02/18at 08:45; Admin Dose 5 MG; Start 04/29/18 at 21:00 Insulin Aspart (Novolog Insulin Pen) NOVOLOG *MILD* ALGORI... Q6 SC Last administered on 05/01/18at 18:58; Admin Dose 2 UNIT; Start 05/01/18 at 12:00 Oxycodone HCl (Oxycontin) 20 mg BID PO Last administered on 05/02/18at 08:44; Admin Dose 20 MG; Start 05/01/18 at 21:00 Results Results 24 hrs Laboratory Tests Test 05/01/18 12:13 05/01/18 18:54 05/01/18 22:35 05/02/18 05:14 Bedside Glucose 164 187 194 159 RUSS JEROME MD May 02, 2018 10:43
[2018-05-02 14:57] VITALS: BP 136/73; PULSE 92; RESP 20
[2018-05-02] MEDS: LORAZEPAM 0.5 MG TAB PO PRN (17:05)
--- NOTE | 2018-05-02 19:05 | CONS ---
Date/Time of Note Date/Time of Note DATE: 05/02/18 TIME: 19:03 Assessment/Plan Assessment/Plan Chief Complaint/Hosp Course METASTATIC BREAST Cancer ( PRIMARY IS IN THE L BREAST ) with MULTIPLE BONY METS, PULMONARY METS SEVERE T-L SPINE PAIN WITH DIFFICULTIES TO AMBULATE MRI T-L SPINE- Diffuse osseous metastatic disease of the visualized thoracic spine (T10 - T12), the entire lumbar spine, sacrum, and bilateral iliac bones. Expansion of the posterior T9 vertebral body resulting in central canal stenosis with AP diameter measuring 8 mm. CONT IV STEROIDS CONT AI PAIN CONTROL RADONC AND NEUROSURG F-UP MRI C - SPINE AND R HIP BONE SCAN -Multiple skeletal metastases in the axial and appendicular skeleton PLAN- CONT XRT PAIN CONT OXYCONTIN Obesity. Weight loss 60 pounds during the last 2 years by diet PMS. Myopia. Anemia chronic disease. Anxiety disorder. Posttraumatic stress disorder. Pain in the left forearm with a history of fracture of ulna and radius. 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 Consultation Date/Type/Reason Admit Date/Time Apr 25, 2018 at 14:37 Initial Consult Date 04/25/18 [facility] Request[facility] Provider: RUSS JEROME MD 24 HR Interval Summary Free Text/Dictation ALL NOTED D/W DR BARON Exam/Review of Systems Vital Signs Vitals Vital Signs Date Temp Pulse Resp B/P (MAP) Pulse Ox O2 O2 Flow FiO2 Time Delivery Rate 05/02/18 97.9 92 20 136/73 95 Room Air 14:57 (94) 05/02/18 2.0 08:00 Intake and Output 05/01/18 05/01/18 05/02/18 1515:00 23:00 07:00 IntakeIntake Total 240 ml 1600 ml BalanceBalance 240 ml 1600 ml Exam Constitutional: alert, oriented, well developed, distress, frail; No non-verbal, No other Psych: anxiety, depression; No no complaints, No nl mood/affect, No confusion, No suicidal, No other Head: normocephalic, atraumatic; No lacerations, No hematomas, No other Eyes: EOMI, nl lids, PERRL; No nl conjunctiva, No nl sclera, No icteric, No fundi, disc, No other ENMT: tympanic membranes; No nl external ears & nose, No nl lips & teeth, No nl nasal mucosa & septum, No mucosa pink and moist, No intubated, No other Neck: supple, non-tender, jvd, bruits; No masses, No thyromegaly, No nuchal rigidity, No other Respiratory: clear to auscultation, normal air movement, crackles/rales, diminished breath sounds, respirations; No congested cough, No intercostal retraction, No labored breathing, No tactile fremitus, No wheezing, No other Cardiovascular: regular rate and rhythm, bruits, jugular venous distention (JVD), systolic murmur; No nl pulses, No diastolic murmur, No edema, No gallop, No irregular rhythm, No murmurs/extra sounds, No rub, No S3, No S4, No other Gastrointestinal: soft, non-tender, bowel sounds, distended, hepatomegaly, other (Obesity with thick fatty layer of the anterior abdominal wall with no rebound.); No nl liver, spleen, No ascites, No firm, No mass, No rebound or guarding, No splenomegaly, No surgical scars, No tender Genitourinary - Female: nl adnexae, nl external genitalia, CVA tenderness; No CMT, No uterus, No other Musculoskeletal: joint tenderness, muscle tone, muscle weakness, spine non- tender (Severe tenderness of the intrascapular area lumbosacral area with great difficulty to get up to move. 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: FRONT MAKER 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; No nl mental status, No nl speech, No nl strength, No confused, No DTR's symmetric, No focal weakness, No lethargic, No numbness, No reflexes, No unresponsive, No other Skin: nl turgor; No rash or lesions, No diaphoresis, No ecchymosis, No laceration, No puncture, No other Lymph: No nl lymph nodes, No enlarged, No nontender, No other BREAST- LARGE L BREAST MASS Medications Medications Current Medications Anastrozole (Arimidex) 1 mg DAILY PO Last administered on 11/15/18at 08:44; Admin Dose 1 MG; Start 04/25/18 at 19:00 Dexamethasone (Decadron) 4 mg Q8 IV Last administered on 05/02/18 14:53; Admin Dose 4 MG; Start 04/25/18 at 22:00 Zolpidem Tartrate (Ambien) 10 mg HS PRN PO INSOMNIA; Start 04/25/18 at 23:30 Lorazepam (Ativan) 0.5 mg TID PRN PO ANXIETY Last administered on 05/02/18 17:05; Admin Dose 0.5 MG; Start 04/25/18 at 23:30 Enoxaparin Sodium (Lovenox) 40 mg DAILY SC Last administered on 05/02/18 08:45; Admin Dose 40 MG; Start 04/26/18 at 09:30 Magnesium Hydroxide (Milk Of Mag) 30 ml DAILY PRN PO CONSTIPATION Last administered on 04/29/18 09:04; Admin Dose 30 ML; Start 04/27/18 at 21:00 Morphine Sulfate (morphine) 3 mg Q4H PRN IV SEVERE PAIN LEVEL 7-10 Last administered on 05/02/18 15:41; Admin Dose 3 MG; Start 04/27/18 at 21:00 Amlodipine Besylate (Norvasc) 5 mg BID PO Last administered on 05/02/18 08:46; Admin Dose 5 MG; Start 04/28/18 at 04:00 Polyethylene Glycol (Miralax) 17 gm BID PO Last administered on 05/02/18 08:43; Admin Dose 17 GM; Start 04/29/18 at 21:00 Docusate Sodium (Colace) 200 mg BID PO Last administered on 05/02/18 08:43; Admin Dose 200 MG; Start 04/29/18 at 21:00 Miscellaneous Information 1 ea NOTE XX ; Start 04/29/18 at 10:30 Glucose (Glutose) 15 gm Q15M PRN PO DECREASED GLUCOSE; Start 04/29/18 at 10:30 Glucose (Glutose) 22.5 gm Q15M PRN PO DECREASED GLUCOSE; Start 04/29/18 at 10:30 Dextrose (D50w Syringe) 25 ml Q15M PRN IV DECREASED GLUCOSE; Start 04/29/18 at 10:30 Dextrose (D50w Syringe) 50 ml Q15M PRN IV DECREASED GLUCOSE; Start 04/29/18 at 10:30 Glucagon (Glucagen) 1 mg Q15M PRN IM DECREASED GLUCOSE; Start 04/29/18 at 10:30 Glucose (Glutose) 15 gm Q15M PRN BUCCAL DECREASED GLUCOSE; Start 04/29/18 at 10:30 Benazepril HCl (Lotensin) 5 mg BID PO Last administered on 05/02/18at 08:45; Admin Dose 5 MG; Start 04/29/18 at 21:00 Insulin Aspart (Novolog Insulin Pen) NOVOLOG *MILD* ALGORI... Q6 SC Last administered on 05/01/18at 18:58; Admin Dose 2 UNIT; Start 05/01/18 at 12:00 Oxycodone HCl (Oxycontin) 20 mg BID PO Last administered on 05/02/18at 08:44; Admin Dose 20 MG; Start 05/01/18 at 21:00 Results Results 24 hrs Laboratory Tests Test 05/01/18 22:35 05/02/18 05:14 05/02/18 12:33 Bedside Glucose 194 159 125 DES DUNAWAY MD May 02, 2018 19:05
[2018-05-02 19:10] VITALS: BP 138/74; PULSE 83; RESP 20
[2018-05-03 02:00] VITALS: BP 125/79; PULSE 91; RESP 20
[2018-05-03] MEDS: morphine 4 MG/ML VIAL IV PRN ×4 (05:42→21:48)
[2018-05-03] MEDS: DEXAMETHASONE 4 MG/ML 1 ML INJ IV SCH ×3 (05:42→21:47)
[2018-05-03] MEDS: INSULIN ASPART [NOVOLOG] 3 ML PEN SC SCH ×4 (05:42→17:48)
[2018-05-03] MEDS: LORAZEPAM 0.5 MG TAB PO PRN (07:11)
[2018-05-03] MEDS: oxyCODONE (CR) 20 MG TAB [oxyCONTIN] PO SCH ×2 (09:15→20:15)
[2018-05-03] MEDS: DOCUSATE SODIUM 100 MG CAP PO SCH ×2 (09:15→20:52)
[2018-05-03] MEDS: AMLODIPINE 5 MG TAB PO SCH ×2 (09:18→20:53)
[2018-05-03] MEDS: BENAZEPRIL 5 MG TAB PO SCH ×2 (09:18→20:52)
[2018-05-03] MEDS: ANASTROZOLE 1 MG TAB PO SCH (09:19)
[2018-05-03] MEDS: ENOXAPARIN 40 MG/0.4 ML SYG SC SCH (09:20)
[2018-05-03 09:31] VITALS: BP 112/73; PULSE 81; RESP 20
[2018-05-03] MEDS: POLYETHYLENE GLYCOL 17 GM PACKET PO SCH ×2 (09:32→21:00)
--- NOTE | 2018-05-03 18:55 | CONS ---
Date/Time of Note Date/Time of Note DATE: 05/03/18 TIME: 18:55 Assessment/Plan Assessment/Plan Chief Complaint/Hosp Course METASTATIC BREAST Cancer ( PRIMARY IS IN THE L BREAST ) with MULTIPLE BONY METS, PULMONARY METS SEVERE T-L SPINE PAIN WITH DIFFICULTIES TO AMBULATE MRI T-L SPINE- Diffuse osseous metastatic disease of the visualized thoracic spine (T10 - T12), the entire lumbar spine, sacrum, and bilateral iliac bones. Expansion of the posterior T9 vertebral body resulting in central canal stenosis with AP diameter measuring 8 mm. CONT IV STEROIDS CONT AI PAIN CONTROL RADONC AND NEUROSURG F-UP MRI C - SPINE AND R HIP BONE SCAN -Multiple skeletal metastases in the axial and appendicular skeleton PLAN- CONT XRT PAIN CONT OXYCONTIN Obesity. Weight loss 60 pounds during the last 2 years by diet PMS. Myopia. Anemia chronic disease. Anxiety disorder. Posttraumatic stress disorder. Pain in the left forearm with a history of fracture of ulna and radius. 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 Date/Type/Reason Admit Date/Time Apr 25, 2018 at 14:37 Initial Consult Date 04/25/18 [facility] Requesting Provider: RUSS JEROME MD 24 HR Interval Summary Free Text/Dictation ALL NOTED D/W PT AND RN Exam/Review of Systems Vital Signs Vitals Vital Signs Date Temp Pulse Resp B/P (MAP) Pulse Ox O2 O2 Flow FiO2 Time Delivery Rate 05/03/18 81 20 112/73 09:31 (86) 05/03/18 97.9 95 Room Air 02:00 05/02/18 2.0 08:00 Intake and Output 05/02/18 05/02/18 05/03/18 1515:00 23:00 07:00 IntakeIntake Total 200 ml BalanceBalance 200 ml Exam Exam Constitutional: alert, oriented, well developed, distress, frail; No non-verbal, No other Psych: anxiety, depression; No no complaints, No nl mood/affect, No confusion, No suicidal, No other Head: normocephalic, atraumatic; No lacerations, No hematomas, No other Eyes: EOMI, nl lids, PERRL; No nl conjunctiva, No nl sclera, No icteric, No fundi, disc, No other ENMT: tympanic membranes; No nl external ears & nose, No nl lips & teeth, No nl nasal mucosa & septum, No mucosa pink and moist, No intubated, No other Neck: supple, non-tender, jvd, bruits; No masses, No thyromegaly, No nuchal rigidity, No other Respiratory: clear to auscultation, normal air movement, crackles/rales, diminished breath sounds, respirations; No congested cough, No intercostal retraction, No labored breathing, No tactile fremitus, No wheezing, No other Cardiovascular: regular rate and rhythm, bruits, jugular venous distention (JVD), systolic murmur; No nl pulses, No diastolic murmur, No edema, No gallop, No irregular rhythm, No murmurs/extra sounds, No rub, No S3, No S4, No other Gastrointestinal: soft, non-tender, bowel sounds, distended, hepatomegaly, other (Obesity with thick fatty layer of the anterior abdominal wall with no rebound.); No nl liver, spleen, No ascites, No firm, No mass, No rebound or guarding, No splenomegaly, No surgical scars, No tender Genitourinary - Female: nl adnexae, nl external genitalia, CVA tenderness; No CMT, No uterus, No other Musculoskeletal: joint tenderness, muscle tone, muscle weakness, spine non- tender (Severe tenderness of the intrascapular area lumbosacral area with great difficulty to get up to move. 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: BATCHER OPERATOR 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; No nl mental status, No nl speech, No nl strength, No confused, No DTR's symmetric, No focal weakness, No lethargic, No numbness, No reflexes, No unresponsive, No other Skin: nl turgor; No rash or lesions, No diaphoresis, No ecchymosis, No laceration, No puncture, No other Lymph: No nl lymph nodes, No enlarged, No nontender, No other BREAST- LARGE L BREAST MASS Medications Medications Current Medications Anastrozole (Arimidex) 1 mg DAILY PO Last administered on 05/03/18at 09:19; Admin Dose 1 MG; Start 04/25/18 at 19:00 Dexamethasone (Decadron) 4 mg Q8 IV Last administered on 05/03/18at 14:20; Admin Dose 4 MG; Start 04/25/18 at 22:00 Zolpidem Tartrate (Ambien) 10 mg HS PRN PO INSOMNIA; Start 04/25/18 at 23:30 Lorazepam (Ativan) 0.5 mg TID PRN PO ANXIETY Last administered on 05/03/18at 07:11; Admin Dose 0.5 MG; Start 04/25/18 at 23:30 Enoxaparin Sodium (Lovenox) 40 mg DAILY SC Last administered on 05/03/18at 09:20; Admin Dose 40 MG; Start 04/26/18 at 09:30 Magnesium Hydroxide (Milk Of Mag) 30 ml DAILY PRN PO CONSTIPATION Last administered on 04/29/18at 09:04; Admin Dose 30 ML; Start 04/27/18 at 21:00 Morphine Sulfate (morphine) 3 mg Q4H PRN IV SEVERE PAIN LEVEL 7-10 Last administered on 05/03/18at 12:35; Admin Dose 3 MG; Start 04/27/18 at 21:00 Amlodipine Besylate (Norvasc) 5 mg BID PO Last administered on 05/03/18at 09:18; Admin Dose 5 MG; Start 04/28/18 at 04:00 Polyethylene Glycol (Miralax) 17 gm BID PO Last administered on 05/03/18at 09:32; Admin Dose 17 GM; Start 04/29/18 at 21:00 Docusate Sodium (Colace) 200 mg BID PO Last administered on 05/03/18at 09:15; Admin Dose 200 MG; Start 04/29/18 at 21:00 Miscellaneous Information 1 ea NOTE XX ; Start 04/29/18 at 10:30 Glucose (Glutose) 15 gm Q15M PRN PO DECREASED GLUCOSE; Start 04/29/18 at 10:30 Glucose (Glutose) 22.5 gm Q15M PRN PO DECREASED GLUCOSE; Start 04/29/18 at 10:30 Dextrose (D50w Syringe) 25 ml Q15M PRN IV DECREASED GLUCOSE; Start 04/29/18 at 10:30 Dextrose (D50w Syringe) 50 ml Q15M PRN IV DECREASED GLUCOSE; Start 04/29/18 at 10:30 Glucagon (Glucagen) 1 mg Q15M PRN IM DECREASED GLUCOSE; Start 04/29/18 at 10:30 Glucose (Glutose) 15 gm Q15M PRN BUCCAL DECREASED GLUCOSE; Start 04/29/18 at 10:30 Benazepril HCl (Lotensin) 5 mg BID PO Last administered on 05/03/18at 09:18; Admin Dose 5 MG; Start 04/29/18 at 21:00 Insulin Aspart (Novolog Insulin Pen) NOVOLOG *MILD* ALGORI... Q6 SC Last admi nistered on 05/03/18at 17:48; Admin Dose 1 UNIT; Start 05/01/18 at 12:00 Oxycodone HCl (Oxycontin) 20 mg BID PO Last administered on 05/03/18at 09:15; Admin Dose 20 MG; Start 05/01/18 at 21:00 Results Results 24 hrs Laboratory Tests Test 05/02/18 20:01 05/02/18 23:35 05/03/18 05:38 05/03/18 12:39 Bedside Glucose 180 215 206 136 Test 05/03/18 17:44 Bedside Glucose 180 DES DUNAWAY MD May 03, 2018 18:55
[2018-05-03 19:31] VITALS: BP 123/72; PULSE 78; RESP 18
--- NOTE | 2018-05-03 23:35 | PN ---
Date/Time of Note Date/Time of Note DATE: 05/03/18 TIME: 23:34 Assessment/Plan VTE Prophylaxis Risk score (from Nsg)>0 risk: 3 SCD applied (from Ns): Yes SCD contraindicated: low risk/ambulating Pharmacological prophylaxis: LMWH Lines/Catheters IV Catheter Type (from Nrsg): Peripheral IV Central line still needed: No Urinary Cath still in place: No Reason Cath still needed: urinary retention Assessment/Plan Assessment/Plan 1. Cancer of the left and left breast. Exact type at this time unknown. 2. Severe pain in the interscapular and lumbar sacral area most probably metastatic lesion possible femoral fracture. pathologic fracture of T9 with 60% of loss of height. Neurosurgical consult planned. 3. Obesity. 4. Weight loss 60 pounds during the last 2 years by diet 5. PMS. 6. Myopia. 7. Anemia chronic disease. 8. Anxiety disorder. 9. Posttraumatic stress disorder. 10. Pain in the left forearm with a history of fracture of ulna and radius. 11. Tachycardia 12. Hypoxemia at night marginal improved after 2 L of nasal cannula oxygen. 13. Process at night. 14. 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 15.Pain syndrome. Subjective 24 Hr Interval Summary Free Text/Dictation Chills but no fever. Constitutional: improved, chills, poor po, requiring IVF, requiring O2; No no complaints, No diaphoresis, No disoriented, No febrile, No other Eyes: No no complaints, No pain, No discharge, No redness, No visual change, No other ENT: congestion, sore throat; No no complaints, No bleeding, No pain, No discharge, No dysphagia, No other Respiratory: cough, shortness of breath; No no complaints, No pain, No pleuritic pain, No sputum, No wheezing, No other Cardiovascular: chest pain, lightheadedness, palpitations; No no complaints, No edema, No orthopenea, No paroxysmal nocturnal dyspnea, No other Gastrointestinal: constipation, decreased appetite; No no complaints, No pain, No blood, No diarrhea, No flatus, No nausea, No passing stool, No vomiting, No other Genitourinary: dysuria; No no complaints, No bleeding, No discharge, No flank pain, No hematuria, No other Musculoskeletal: back pain, bone/joint pain, neck pain Skin: No no complaints, No bruising, No erythema, No laceration, No pruritis, No rash, No skin lesions, No other Neurologic: headache; No no complaints, No confusion, No dizziness, No focal-weakness, No syncope, No seizure, No other Endocrine: dry skin Psychological: anxiety, depression; No no complaints, No nl mood/affect, No confusion, No suicidal, No other Exam/Review of Systems Vital Signs Vitals Vital Signs Date Temp Pulse Resp B/P (MAP) Pulse Ox O2 O2 Flow FiO2 Time Delivery Rate 05/03/18 98.2 78 18 123/72 97 Room Air 19:31 (89) 05/02/18 2.0 08:00 Intake and Output 05/02/18 05/02/18 05/03/18 1515:00 23:00 07:00 IntakeIntake Total 200 ml BalanceBalance 200 ml Exam Constitutional: alert, oriented, well developed, frail, obese; No non-verbal, No distress, No other Psych: anxiety; No no complaints, No nl mood/affect, No confusion, No depression, No suicidal, No other Head: normocephalic, atraumatic; No lacerations, No hematomas, No other Eyes: nl conjunctiva, EOMI, nl lids, PERRL; No nl sclera, No icteric, No fundi, disc, No other ENMT: No nl external ears & nose, No nl lips & teeth, No nl nasal mucosa & septum, No mucosa pink and moist, No intubated, No tympanic membranes, No other Neck: jvd, thyromegaly, nuchal rigidity; No supple, No non-tender, No bruits, No masses, No other Respiratory: clear to auscultation, diminished breath sounds; No normal air movement, No congested cough, No crackles/rales, No intercostal retraction, No labored breathing, No respirations, No tactile fremitus, No wheezing, No other Cardiovascular: regular rate and rhythm; No nl pulses, No bruits, No diastolic murmur, No edema, No gallop, No irregular rhythm, No jugular venous distention (JVD), No murmurs/extra sounds, No rub, No systolic murmur, No S3, No S4, No other Gastrointestinal: soft, nl liver, spleen, non-tender; No ascites, No bowel sounds, No distended, No firm, No hepatomegaly, No mass, No rebound or guarding, No splenomegaly, No surgical scars, No tender, No other Genitourinary - Female: No nl adnexae, No nl external genitalia, No CMT, No CVA tenderness, No uterus, No other Musculoskeletal: joint tenderness; No nl extremities to inspection, No nl gait and stance, No muscle tone, No muscle weakness, No range of motion, No spine non-tender, No swelling, No other Extremities: edema; No normal pulses, No calf tenderness, No cyanosis, No clubbing, No pitting pedal edema, No palpable cord, No tenderness, No other 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: RN CASE MANAGEMENT 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, numbness; No nl mental status, No nl speech, No nl strength, No confused, No DTR's symmetric, No focal weakness, No lethargic, No reflexes, No unresponsive, No other Skin: nl turgor; No rash or lesions, No diaphoresis, No ecchymosis, No laceration, No puncture, No other Medications Medications Current Medications Anastrozole (Arimidex) 1 mg DAILY PO Last administered on 05/03/18 09:19; Admin Dose 1 MG; Start 04/25/18 at 19:00 Dexamethasone (Decadron) 4 mg Q8 IV Last administered on 05/03/18 21:47; Admin Dose 4 MG; Start 04/25/18 at 22:00 Zolpidem Tartrate (Ambien) 10 mg HS PRN PO INSOMNIA; Start 04/25/18 at 23:30 Lorazepam (Ativan) 0.5 mg TID PRN PO ANXIETY Last administered on 05/03/18 07:11; Admin Dose 0.5 MG; Start 04/25/18 at 23:30 Enoxaparin Sodium (Lovenox) 40 mg DAILY SC Last administered on 05/03/18 09:20; Admin Dose 40 MG; Start 04/26/18 at 09:30 Magnesium Hydroxide (Milk Of Mag) 30 ml DAILY PRN PO CONSTIPATION Last administered on 04/29/18 09:04; Admin Dose 30 ML; Start 04/27/18 at 21:00 Morphine Sulfate (morphine) 3 mg Q4H PRN IV SEVERE PAIN LEVEL 7-10 Last administered on 05/03/18 21:48; Admin Dose 3 MG; Start 04/27/18 at 21:00 Amlodipine Besylate (Norvasc) 5 mg BID PO Last administered on 05/03/18at 20:53; Admin Dose 5 MG; Start 04/28/18 at 04:00 Polyethylene Glycol (Miralax) 17 gm BID PO Last administered on 05/03/18at 09:32; Admin Dose 17 GM; Start 04/29/18 at 21:00 Docusate Sodium (Colace) 200 mg BID PO Last administered on 05/03/18at 20:52; Admin Dose 200 MG; Start 04/29/18 at 21:00 Miscellaneous Information 1 ea NOTE XX ; Start 04/29/18 at 10:30 Glucose (Glutose) 15 gm Q15M PRN PO DECREASED GLUCOSE; Start 04/29/18 at 10:30 Glucose (Glutose) 22.5 gm Q15M PRN PO DECREASED GLUCOSE; Start 04/29/18 at 10:30 Dextrose (D50w Syringe) 25 ml Q15M PRN IV DECREASED GLUCOSE; Start 04/29/18 at 10:30 Dextrose (D50w Syringe) 50 ml Q15M PRN IV DECREASED GLUCOSE; Start 04/29/18 at 10:30 Glucagon (Glucagen) 1 mg Q15M PRN IM DECREASED GLUCOSE; Start 04/29/18 at 10:30 Glucose (Glutose) 15 gm Q15M PRN BUCCAL DECREASED GLUCOSE; Start 04/29/18 at 10:30 Benazepril HCl (Lotensin) 5 mg BID PO Last administered on 05/03/18at 20:52; Admin Dose 5 MG; Start 04/29/18 at 21:00 Insulin Aspart (Novolog Insulin Pen) NOVOLOG *MILD* ALGORI... Q6 SC Last administered on 05/03/18at 17:48; Admin Dose 1 UNIT; Start 05/01/18 at 12:00 Oxycodone HCl (Oxycontin) 20 mg BID PO Last administered on 05/03/18at 20:15; Admin Dose 20 MG; Start 05/01/18 at 21:00 Results Results 24 hrs Laboratory Tests Test 05/02/18 23:35 05/03/18 05:38 05/03/18 12:39 05/03/18 17:44 Bedside Glucose 215 206 136 180 RUSS JEROME MD May 03, 2018 23:35
[2018-05-04] MEDS: INSULIN ASPART [NOVOLOG] 3 ML PEN SC SCH ×4 (00:36→17:44)
[2018-05-04 01:30] VITALS: BP 124/68; PULSE 78; RESP 18
[2018-05-04] MEDS: morphine 4 MG/ML VIAL IV PRN ×6 (01:42→21:47)
[2018-05-04] MEDS: DEXAMETHASONE 4 MG/ML 1 ML INJ IV SCH ×3 (05:30→21:47)
[2018-05-04 07:27] VITALS: BP 127/75; PULSE 92; RESP 16
[2018-05-04] MEDS: ENOXAPARIN 40 MG/0.4 ML SYG SC SCH (09:10)
[2018-05-04] MEDS: ANASTROZOLE 1 MG TAB PO SCH (09:10)
[2018-05-04] MEDS: oxyCODONE (CR) 20 MG TAB [oxyCONTIN] PO SCH ×2 (09:11→20:56)
[2018-05-04] MEDS: BENAZEPRIL 5 MG TAB PO SCH ×2 (09:11→20:56)
[2018-05-04] MEDS: DOCUSATE SODIUM 100 MG CAP PO SCH ×2 (09:11→20:55)
[2018-05-04] MEDS: POLYETHYLENE GLYCOL 17 GM PACKET PO SCH ×2 (09:11→20:56)
[2018-05-04] MEDS: AMLODIPINE 5 MG TAB PO SCH ×2 (09:12→20:56)
[2018-05-04 14:15] VITALS: BP 114/72; PULSE 89; RESP 17
--- NOTE | 2018-05-04 15:03 | PN ---
Date/Time of Note Date/Time of Note DATE: 05/04/18 TIME: 15:03 Assessment/Plan VTE Prophylaxis Risk score (from Nsg)>0 risk: 3 SCD applied (from Ns): Yes SCD contraindicated: low risk/ambulating Pharmacological prophylaxis: LMWH Lines/Catheters IV Catheter Type (from Nrsg): Peripheral IV Central line still needed: No Urinary Cath still in place: No Reason Cath still needed: urinary retention Assessment/Plan Assessment/Plan 1. Cancer of the left and left breast. Exact type at this time unknown. 2. Severe pain in the interscapular and lumbar sacral area most probably metastatic lesion possible femoral fracture. pathologic fracture of T9 with 60% of loss of height. Neurosurgical consult planned. 3. Obesity. 4. Weight loss 60 pounds during the last 2 years by diet 5. PMS. 6. Myopia. 7. Anemia chronic disease. 8. Anxiety disorder. 9. Posttraumatic stress disorder. 10. Pain in the left forearm with a history of fracture of ulna and radius. 11. Tachycardia 12. Hypoxemia at night marginal improved after 2 L of nasal cannula oxygen. 13. Process at night. 14. 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 15.Pain syndrome. Subjective 24 Hr Interval Summary Free Text/Dictation Chills on and off. Subjective hx not possible: pt critical Constitutional: poor po, requiring O2; No no complaints, No improved, No chills, No diaphoresis, No disoriented, No febrile, No requiring IVF, No other Eyes: redness; No no complaints, No pain, No discharge, No visual change, No other ENT: pain, sore throat; No no complaints, No bleeding, No congestion, No discharge, No dysphagia, No other Respiratory: cough, shortness of breath; No no complaints, No pain, No pleuritic pain, No sputum, No wheezing, No ot her Cardiovascular: chest pain; No no complaints, No edema, No lightheadedness, No orthopenea, No palpit ations, No paroxysmal nocturnal dyspnea, No other Gastrointestinal: decreased appetite, flatus; No no complaints, No pain, No blood, No constipation, No diarrhea, No nausea, No passing stool, No vomiting, No other Genitourinary: dysuria; No no complaints, No bleeding, No discharge, No flank pain, No hematuria, No other Musculoskeletal: back pain, bone/joint pain; No no complaints, No neck pain, No restricted range of motion, No swelling, No other Skin: No no complaints, No bruising, No erythema, No laceration, No pruritis, No rash, No skin lesions, No other Neurologic: No no complaints, No confusion, No dizziness, No focal-weakness, No headache, No syncope, No seizure, No other Exam/Review of Systems Vital Signs Vitals Vital Signs Date Temp Pulse Resp B/P (MAP) Pulse Ox O2 O2 Flow FiO2 Time Delivery Rate 05/04/18 99.0 89 17 114/72 96 Room Air 14:15 (86) 05/02/18 2.0 08:00 Intake and Output 05/03/18 05/03/18 05/04/18 1414:59 22:59 06:59 IntakeIntake Total 1200 ml 440 ml 300 ml OutputOutput Total 250 ml 250 ml BalanceBalance 1200 ml 190 ml 50 ml Exam Constitutional: alert, oriented, well developed, distress, frail, obese Psych: anxiety, depression; No no complaints, No nl mood/affect, No confusion, No suicidal, No other Head: normocephalic, atraumatic; No lacerations, No hematomas, No other Eyes: EOMI, nl lids, PERRL; No nl conjunctiva, No nl sclera, No icteric, No fundi, disc, No other ENMT: mucosa pink and moist; No nl external ears & nose, No nl lips & teeth, No nl nasal mucosa & septum, No intubated, No tympanic membranes, No other Neck: supple, jvd Respiratory: congested cough, crackles/rales, diminished breath sounds, labored breathing; No clear to auscultation, No normal air movement, No intercostal retraction, No respirations, No tactile fremitus, No wheezing, No other Cardiovascular: regular rate and rhythm; No nl pulses, No bruits, No diastolic murmur, No edema, No gallop, No irregular rhythm, No jugular venous distention (JVD), No murmurs/extra sounds, No rub, No systolic murmur, No S3, No S4, No other Gastrointestinal: soft, nl liver, spleen, bowel sounds; No non-tender, No ascites, No distended, No firm, No hepatomegaly, No mass, No rebound or guarding, No splenomegaly, No surgical scars, No tender, No other Musculoskeletal: nl gait and stance, joint tenderness; No nl extremities to inspection, No muscle tone, No muscle weakness, No range of motion, No spine non-tender, No swelling, No other Extremities: No normal pulses, No calf tenderness, No cyanosis, No clubbing, No edema, No pitting pedal edema, No palpable cord, No tenderness, No other 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: ELECTRIC CONTAINER TESTER 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; No nl mental status, No nl speech, No nl strength, No confused, No DTR's symmetric, No focal weakness, No lethargic, No numbness, No reflexes, No unresponsive, No other Skin: nl turgor Medications Medications Current Medications Anastrozole (Arimidex) 1 mg DAILY PO Last administered on 05/04/18 09:10; Admin Dose 1 MG; Start 04/25/18 at 19:00 Dexamethasone (Decadron) 4 mg Q8 IV Last administered on 05/04/18 13:13; Admin Dose 4 MG; Start 04/25/18 at 22:00 Zolpidem Tartrate (Ambien) 10 mg HS PRN PO INSOMNIA; Start 04/25/18 at 23:30 Lorazepam (Ativan) 0.5 mg TID PRN PO ANXIETY Last administered on 05/03/18 07:11; Admin Dose 0.5 MG; Start 04/25/18 at 23:30 Enoxaparin Sodium (Lovenox) 40 mg DAILY SC Last administered on 05/04/18 09:10; Admin Dose 40 MG; Start 04/26/18 at 09:30 Magnesium Hydroxide (Milk Of Mag) 30 ml DAILY PRN PO CONSTIPATION Last administered on 04/29/18 09:04; Admin Dose 30 ML; Start 04/27/18 at 21:00 Morphine Sulfate (morphine) 3 mg Q4H PRN IV SEVERE PAIN LEVEL 7-10 Last administered on 05/04/18 14:02; Admin Dose 3 MG; Start 04/27/18 at 21:00 Amlodipine Besylate (Norvasc) 5 mg BID PO Last administered on 05/04/18 09:12; Admin Dose 5 MG; Start 04/28/18 at 04:00 Polyethylene Glycol (Miralax) 17 gm BID PO Last administered on 11/17/18at 09:11; Admin Dose 17 GM; Start 04/29/18 at 21:00 Docusate Sodium (Colace) 200 mg BID PO Last administered on 05/04/18at 09:11; Admin Dose 200 MG; Start 04/29/18 at 21:00 Miscellaneous Information 1 ea NOTE XX ; Start 04/29/18 at 10:30 Glucose (Glutose) 15 gm Q15M PRN PO DECREASED GLUCOSE; Start 04/29/18 at 10:30 Glucose (Glutose) 22.5 gm Q15M PRN PO DECREASED GLUCOSE; Start 04/29/18 at 10:30 Dextrose (D50w Syringe) 25 ml Q15M PRN IV DECREASED GLUCOSE; Start 04/29/18 at 10:30 Dextrose (D50w Syringe) 50 ml Q15M PRN IV DECREASED GLUCOSE; Start 04/29/18 at 10:30 Glucagon (Glucagen) 1 mg Q15M PRN IM DECREASED GLUCOSE; Start 04/29/18 at 10:30 Glucose (Glutose) 15 gm Q15M PRN BUCCAL DECREASED GLUCOSE; Start 04/29/18 at 10:30 Benazepril HCl (Lotensin) 5 mg BID PO Last administered on 05/04/18at 09:11; Admin Dose 5 MG; Start 04/29/18 at 21:00 Insulin Aspart (Novolog Insulin Pen) NOVOLOG *MILD* ALGORI... Q6 SC Last administered on 05/04/18at 13:10; Admin Dose 1 UNIT; Start 05/01/18 at 12:00 Oxycodone HCl (Oxycontin) 20 mg BID PO Last administered on 05/04/18at 09:11; Admin Dose 20 MG; Start 05/01/18 at 21:00 Results Results 24 hrs Laboratory Tests Test 05/03/18 17:44 05/04/18 00:32 05/04/18 05:25 05/04/18 12:34 Bedside Glucose 180 227 H 187 157 RUSS JEROME MD May 04, 2018 15:03
--- NOTE | 2018-05-04 15:48 | CONS ---
Date/Time of Note Date/Time of Note DATE: 05/04/18 TIME: 15:48 Assessment/Plan Assessment/Plan Chief Complaint/Hosp Course METASTATIC BREAST Cancer ( PRIMARY IS IN THE L BREAST ) with MULTIPLE BONY METS, PULMONARY METS SEVERE T-L SPINE PAIN WITH DIFFICULTIES TO AMBULATE MRI T-L SPINE- Diffuse osseous metastatic disease of the visualized thoracic spine (T10 - T12), the entire lumbar spine, sacrum, and bilateral iliac bones. Expansion of the posterior T9 vertebral body resulting in central canal stenosis with AP diameter measuring 8 mm. CONT IV STEROIDS CONT AI PAIN CONTROL RADONC AND NEUROSURG F-UP MRI C - SPINE AND R HIP BONE SCAN -Multiple skeletal metastases in the axial and appendicular skeleton PLAN- CONT XRT PAIN CONT OXYCONTIN Obesity. Weight loss 60 pounds during the last 2 years by diet PMS. Myopia. Anemia chronic disease. Anxiety disorder. Posttraumatic stress disorder. Pain in the left forearm with a history of fracture of ulna and radius. 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 Date/Type/Reason Admit Date/Time Apr 25, 2018 at 14:37 Initial Consult Date 04/25/18 [facility] Request[facility] Provider: RUSS JEROME MD 24 HR Interval Summary Free Text/Dictation ALL NOTED D/W PT AND SS AND CM Exam/Review of Systems Vital Signs Vitals Vital Signs Date Temp Pulse Resp B/P (MAP) Pulse Ox O2 O2 Flow FiO2 Time Delivery Rate 05/04/18 99.0 89 17 114/72 96 Room Air 14:15 (86) 05/02/18 2.0 08:00 Intake and Output 05/03/18 05/03/18 05/04/18 1515:00 23:00 07:00 IntakeIntake Total 1200 ml 440 ml 300 ml OutputOutput Total 250 ml 250 ml BalanceBalance 1200 ml 190 ml 50 ml Exam Exam Constitutional: alert, oriented, well developed, distress, frail; No non-verbal, No other Psych: anxiety, depression; No no complaints, No nl mood/affect, No confusion, No suicidal, No other Head: normocephalic, atraumatic; No lacerations, No hematomas, No other Eyes: EOMI, nl lids, PERRL; No nl conjunctiva, No nl sclera, No icteric, No fundi, disc, No other ENMT: tympanic membranes; No nl external ears & nose, No nl lips & teeth, No nl nasal mucosa & septum, No mucosa pink and moist, No intubated, No other Neck: supple, non-tender, jvd, bruits; No masses, No thyromegaly, No nuchal rigidity, No other Respiratory: clear to auscultation, normal air movement, crackles/rales, diminished breath sounds, respirations; No congested cough, No intercostal retraction, No labored breathing, No tactile fremitus, No wheezing, No other Cardiovascular: regular rate and rhythm, bruits, jugular venous distention (JVD), systolic murmur; No nl pulses, No diastolic murmur, No edema, No gallop, No irregular rhythm, No murmurs/extra sounds, No rub, No S3, No S4, No other Gastrointestinal: soft, non-tender, bowel sounds, distended, hepatomegaly, other (Obesity with thick fatty layer of the anterior abdominal wall with no rebound.); No nl liver, spleen, No ascites, No firm, No mass, No rebound or guarding, No splenomegaly, No surgical scars, No tender Genitourinary - Female: nl adnexae, nl external genitalia, CVA tenderness; No CMT, No uterus, No other Musculoskeletal: joint tenderness, muscle tone, muscle weakness, spine non- tender (Severe tenderness of the intrascapular area lumbosacral area with great difficulty to get up to move. 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; No nl mental status, No nl speech, No nl strength, No confused, No DTR's symmetric, No focal weakness, No lethargic, No numbness, No reflexes, No unresponsive, No other Skin: nl turgor; No rash or lesions, No diaphoresis, No ecchymosis, No laceration, No puncture, No other Lymph: No nl lymph nodes, No enlarged, No nontender, No other BREAST- LARGE L BREAST MASS Medications Medications Current Medications Anastrozole (Arimidex) 1 mg DAILY PO Last administered on 05/04/18at 09:10; Admin Dose 1 MG; Start 04/25/18 at 19:00 Dexamethasone (Decadron) 4 mg Q8 IV Last administered on 05/04/18at 13:13; Admin Dose 4 MG; Start 04/25/18 at 22:00 Zolpidem Tartrate (Ambien) 10 mg HS PRN PO INSOMNIA; Start 04/25/18 at 23:30 Lorazepam (Ativan) 0.5 mg TID PRN PO ANXIETY Last administered on 05/03/18at 07:11; Admin Dose 0.5 MG; Start 04/25/18 at 23:30 Enoxaparin Sodium (Lovenox) 40 mg DAILY SC Last administered on 05/04/18at 09:10; Admin Dose 40 MG; Start 04/26/18 at 09:30 Magnesium Hydroxide (Milk Of Mag) 30 ml DAILY PRN PO CONSTIPATION Last administered on 04/29/18at 09:04; Admin Dose 30 ML; Start 04/27/18 at 21:00 Morphine Sulfate (morphine) 3 mg Q4H PRN IV SEVERE PAIN LEVEL 7-10 Last administered on 05/04/18at 14:02; Admin Dose 3 MG; Start 04/27/18 at 21:00 Amlodipine Besylate (Norvasc) 5 mg BID PO Last administered on 05/04/18at 09:12; Admin Dose 5 MG; Start 04/28/18 at 04:00 Polyethylene Glycol (Miralax) 17 gm BID PO Last administered on 05/04/18at 09:11; Admin Dose 17 GM; Start 04/29/18 at 21:00 Docusate Sodium (Colace) 200 mg BID PO Last administered on 05/04/18at 09:11; Admin Dose 200 MG; Start 04/29/18 at 21:00 Miscellaneous Information 1 ea NOTE XX ; Start 04/29/18 at 10:30 Glucose (Glutose) 15 gm Q15M PRN PO DECREASED GLUCOSE; Start 04/29/18 at 10:30 Glucose (Glutose) 22.5 gm Q15M PRN PO DECREASED GLUCOSE; Start 04/29/18 at 10:30 Dextrose (D50w Syringe) 25 ml Q15M PRN IV DECREASED GLUCOSE; Start 04/29/18 at 10:30 Dextrose (D50w Syringe) 50 ml Q15M PRN IV DECREASED GLUCOSE; Start 04/29/18 at 10:30 Glucagon (Glucagen) 1 mg Q15M PRN IM DECREASED GLUCOSE; Start 04/29/18 at 10:30 Glucose (Glutose) 15 gm Q15M PRN BUCCAL DECREASED GLUCOSE; Start 04/29/18 at 10:30 Benazepril HCl (Lotensin) 5 mg BID PO Last administered on 05/04/18at 09:11; Admin Dose 5 MG; Start 04/29/18 at 21:00 Insulin Aspart (Novolog Insulin Pen) NOVOLOG *MILD* ALGORI... Q6 SC Last administered on 05/04/18at 13:10; Admin Dose 1 UNIT; Start 05/01/18 at 12:00 Oxycodone HCl (Oxycontin) 20 mg BID PO Last administered on 05/04/18at 09:11; Admin Dose 20 MG; Start 05/01/18 at 21:00 Results Results 24 hrs Laboratory Tests Test 05/03/18 17:44 05/04/18 00:32 05/04/18 05:25 05/04/18 12:34 Bedside Glucose 180 227 H 187 157 DES DUNAWAY MD May 04, 2018 15:48
[2018-05-04 20:26] VITALS: BP 107/70; PULSE 91; RESP 18
[2018-05-05] MEDS: LORAZEPAM 0.5 MG TAB PO PRN ×2 (00:34→19:12)
[2018-05-05] MEDS: INSULIN ASPART [NOVOLOG] 3 ML PEN SC SCH ×5 (00:36→23:55)
[2018-05-05] MEDS: morphine 4 MG/ML VIAL IV PRN ×5 (01:51→21:52)
[2018-05-05 02:00] VITALS: BP 130/84; PULSE 71; RESP 17
[2018-05-05] MEDS: DEXAMETHASONE 4 MG/ML 1 ML INJ IV SCH ×3 (05:48→21:52)
[2018-05-05 09:23] VITALS: BP 120/77; PULSE 84; RESP 18
[2018-05-05] MEDS: BENAZEPRIL 5 MG TAB PO SCH ×2 (09:59→20:28)
[2018-05-05] MEDS: AMLODIPINE 5 MG TAB PO SCH ×2 (09:59→20:28)
[2018-05-05] MEDS: POLYETHYLENE GLYCOL 17 GM PACKET PO SCH ×2 (09:59→20:28)
[2018-05-05] MEDS: DOCUSATE SODIUM 100 MG CAP PO SCH ×2 (09:59→20:28)
[2018-05-05 10:00] VITALS: BP 120/75; PULSE 84; RESP 18
[2018-05-05] MEDS: ANASTROZOLE 1 MG TAB PO SCH (10:00)
[2018-05-05] MEDS: ENOXAPARIN 40 MG/0.4 ML SYG SC SCH (10:01)
[2018-05-05] MEDS: oxyCODONE (CR) 20 MG TAB [oxyCONTIN] PO SCH ×2 (10:05→20:28)
--- NOTE | 2018-05-05 14:15 | PN ---
Date/Time of Note Date/Time of Note DATE: 05/05/18 TIME: 14:12 Assessment/Plan VTE Prophylaxis Risk score (from Nsg)>0 risk: 5 SCD applied (from Nsg): Yes SCD contraindicated: low risk/ambulating Pharmacological prophylaxis: LMWH Lines/Catheters IV Catheter Type (from Nrsg): Peripheral IV Central line still needed: No Urinary Cath still in place: No Reason Cath still needed: urinary retention Assessment/Plan Assessment/Plan 1. Cancer of the left and left breast. Exact type at this time unknown. 2. Severe pain in the interscapular and lumbar sacral area most probably metastatic lesion possible femoral fracture. pathologic fracture of T9 with 60% of loss of height. Neurosurgical consult planned. 3. Obesity. 4. Weight loss 60 pounds during the last 2 years by diet 5. PMS. 6. Myopia. 7. Anemia chronic disease. 8. Anxiety disorder. 9. Posttraumatic stress disorder. 10. Pain in the left forearm with a history of fracture of ulna and radius. 11. Tachycardia 12. Hypoxemia at night marginal improved after 2 L of nasal cannula oxygen. 13. Process at night. 14. 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 15.Pain syndrome. Cont Hosp Indication/DC Plan: Also consult Dr. Shane was called. to be evaluated for unstable right hip. Subjective 24 Hr Interval Summary Free Text/Dictation Pain is better controlled. Until that time almost totally pain-free now. Getting tired easily. When I walked to the toilet only 5 6 steps I am getting exhausted. But I was unable to do that before . Subjective hx not possible: pt critical Constitutional: chills, diaphoresis, poor po, requiring IVF, requiring O2; No no complaints, No improved, No disoriented, No febrile, No other Eyes: redness; No no complaints, No pain, No discharge, No visual change, No other ENT: congestion, sore throat; No no complaints, No bleeding, No pain, No discharge, No dysphagia, No other Respiratory: cough, pleuritic pain, shortness of breath; No no complaints, No pain, No sputum, No wheezing, No other Cardiovascular: chest pain, lightheadedness, orthopenea, palpitations; No no complaints, No edema, No paroxysmal nocturnal dyspnea, No other Gastrointestinal: constipation, flatus, nausea, passing stool; No no complaints, No pain, No blood, No decreased appetite, No diarrhea, No vomiting, No other Genitourinary: dysuria, flank pain; No no complaints, No bleeding, No discharge, No hematuria, No other Musculoskeletal: back pain, bone/joint pain, neck pain; No no complaints, No restricted range of motion, No swelling, No other Skin: pruritis; No no complaints, No bruising, No erythema, No laceration, No rash, No skin lesions, No other Neurologic: headache; No no complaints, No confusion, No dizziness, No focal-weakness, No syncope, No seizure, No other Psychological: anxiety; No no complaints, No nl mood/affect, No confusion, No depression, No suic idal, No other Exam/Review of Systems Vital Signs Vitals Vital Signs Date Temp Pulse Resp B/P (MAP) Pulse Ox O2 O2 Flow FiO2 Time Delivery Rate 05/05/18 97.9 84 18 120/75 93 10:00 (90) 05/05/18 Room Air 09:23 05/02/18 2.0 08:00 Intake and Output 05/04/18 05/04/18 05/05/18 1515:00 23:00 07:00 IntakeIntake Total 630 ml 550 ml 200 ml OutputOutput Total 200 ml BalanceBalance 630 ml 350 ml 200 ml Exam Constitutional: alert, oriented, well developed, distress, frail, obese; No non-verbal, No other Psych: anxiety, depression; No no complaints, No nl mood/affect, No confusion, No suicidal, No other Head: normocephalic, atraumatic; No lacerations, No hematomas, No other Eyes: EOMI, nl lids, PERRL; No nl conjunctiva, No nl sclera, No icteric, No fundi, disc, No other ENMT: No nl external ears & nose, No nl lips & teeth, No nl nasal mucosa & se ptum, No mucosa pink and moist, No intubated, No tympanic membranes, No other Neck: bruits, nuchal rigidity; No supple, No non-tender, No jvd, No masses, No thyromegaly, No other Respiratory: clear to auscultation, normal air movement, diminished breath sounds; No congested cough, No crackles/rales, No intercostal retraction, No labored breathing, No respirations, No tactile fremitus, No wheezing, No other Cardiovascular: regular rate and rhythm, nl pulses; No bruits, No diastolic murmur, No edema, No gallop, No irregular rhythm, No jugular venous distention (JVD), No murmurs/extra sounds, No rub, No systolic murmur, No S3, No S4, No other Gastrointestinal: soft, nl liver, spleen, bowel sounds; No non-tender, No ascites, No distended, No firm, No hepatomegaly, No mass, No rebound or guarding, No splenomegaly, No surgical scars, No tender, No other Genitourinary - Female: nl adnexae, nl external genitalia; No CMT, No CVA tenderness, No uterus, No other Musculoskeletal: joint tenderness, muscle tone, muscle weakness; No nl extremities to inspection, No nl gait and stance, No range of motion, No spine non-tender, No swelling, No other Extremities: normal pulses; No calf tenderness, No cyanosis, No clubbing, No edema, No pitting pedal edema, No palpable cord, No tenderness, No other 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, 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; No nl mental status, No nl speech, No nl strength, No DTR's symmetric, No focal weakness, No lethargic, No numbness, No reflexes, No unresponsive, No other Skin: nl turgor, rash or lesions; No diaphoresis, No ecchymosis, No laceration, No puncture, No other Lymph: No nl lymph nodes, No enlarged, No nontender, No other Medications Medications Current Medications Anastrozole (Arimidex) 1 mg DAILY PO Last administered on 05/05/18at 10:00; Admin Dose 1 MG; Start 04/25/18 at 19:00 Dexamethasone (Decadron) 4 mg Q8 IV Last administered on 05/05/18at 05:48; Admin Dose 4 MG; Start 04/25/18 at 22:00 Zolpidem Tartrate (Ambien) 10 mg HS PRN PO INSOMNIA; Start 04/25/18 at 23:30 Lorazepam (Ativan) 0.5 mg TID PRN PO ANXIETY Last administered on 05/05/18at 00:34; Admin Dose 0.5 MG; Start 04/25/18 at 23:30 Enoxaparin Sodium (Lovenox) 40 mg DAILY SC Last administered on 05/05/18at 10:01; Admin Dose 40 MG; Start 04/26/18 at 09:30 Magnesium Hydroxide (Milk Of Mag) 30 ml DAILY PRN PO CONSTIPATION Last administered on 04/29/18at 09:04; Admin Dose 30 ML; Start 04/27/18 at 21:00 Morphine Sulfate (morphine) 3 mg Q4H PRN IV SEVERE PAIN LEVEL 7-10 Last administered on 05/05/18 09:59; Admin Dose 3 MG; Start 04/27/18 at 21:00 Amlodipine Besylate (Norvasc) 5 mg BID PO Last administered on 05/05/18 09:59; Admin Dose 5 MG; Start 04/28/18 at 04:00 Polyethylene Glycol (Miralax) 17 gm BID PO Last administered on 05/05/18 09:59; Admin Dose 17 GM; Start 04/29/18 at 21:00 Docusate Sodium (Colace) 200 mg BID PO Last administered on 05/05/18 09:59; Admin Dose 200 MG; Start 04/29/18 at 21:00 Miscellaneous Information 1 ea NOTE XX ; Start 04/29/18 at 10:30 Glucose (Glutose) 15 gm Q15M PRN PO DECREASED GLUCOSE; Start 04/29/18 at 10:30 Glucose (Glutose) 22.5 gm Q15M PRN PO DECREASED GLUCOSE; Start 04/29/18 at 10:30 Dextrose (D50w Syringe) 25 ml Q15M PRN IV DECREASED GLUCOSE; Start 04/29/18 at 10:30 Dextrose (D50w Syringe) 50 ml Q15M PRN IV DECREASED GLUCOSE; Start 04/29/18 at 10:30 Glucagon (Glucagen) 1 mg Q15M PRN IM DECREASED GLUCOSE; Start 04/29/18 at 10:30 Glucose (Glutose) 15 gm Q15M PRN BUCCAL DECREASED GLUCOSE; Start 04/29/18 at 10:30 Benazepril HCl (Lotensin) 5 mg BID PO Last administered on 05/05/18at 09:59; Admin Dose 5 MG; Start 04/29/18 at 21:00 Insulin Aspart (Novolog Insulin Pen) NOVOLOG *MILD* ALGORI... Q6 SC Last administered on 05/05/18at 05:50; Admin Dose 1 UNIT; Start 05/01/18 at 12:00 Oxycodone HCl (Oxycontin) 20 mg BID PO Last administered on 05/05/18at 10:05; Admin Dose 20 MG; Start 05/01/18 at 21:00 Results Result Diagram: 05/05/18 0425 05/05/18 0425 Results 24 hrs Laboratory Tests Test 05/04/18 16:35 05/04/18 17:41 05/05/18 00:31 05/05/18 04:25 Urine Color YELLOW Urine Clarity CLOUDY A Urine pH 5.0 Urine Specific 1.021 [place] Urine Ketones NEGATIVE Urine Nitrite NEGATIVE Urine Bilirubin NEGATIVE Urine 1+ H Urobilinogen Urine Leukocyte 2+ H Esterase Urine 2 Microscopic RBC Urine 95 H Microscopic WBC Urine Bacteria MANY A Urine Mucus FEW A Urine Hemoglobin NEGATIVE Urine Glucose NEGATIVE Urine Total NEGATIVE Protein Bedside Glucose 190 195 White Blood 10.9 #H Count Red Blood Count 3.72 L Hemoglobin 11.3 L Hematocrit 35.4 L Mean Corpuscular 95.2 Volume Mean Corpuscular 30.4 Hemoglobin Mean Corpuscular 31.9 L Hemoglobin Karen nt Red Cell 13.3 Distribution Width Platelet Count 432 #H Mean Platelet 9.5 Volume Immature 0.500 H Granulocytes % Neutrophils % 85.4 H Lymphocytes % 6.6 L Monocytes % 7.3 Eosinophils % 0.1 Basophils % 0.1 Nucleated Red 0.0 Blood Cells % Immature 0.060 H Granulocytes # Neutrophils # 9.3 H Lymphocytes # 0.7 L Monocytes # 0.8 Eosinophils # 0.0 Basophils # 0.0 Nucleated Red 0.0 Blood Cells # Sodium Level 137 Potassium Level 5.3 H Chloride Level 100 Carbon Dioxide 28 Level Anion Gap 9 Blood Urea 20 Nitrogen Creatinine 0.49 Est Glomerular > 60 Filtrat Rate mL/min Glucose Level 191 Calcium Level 8.1 L Total Bilirubin 0.2 Direct Bilirubin 0.00 Indirect 0.2 Bilirubin Aspartate Amino 30 Transf (AST/SGOT ) Alanine 28 Aminotransferase (ALT/SGPT) Alkaline 245 H Phosphatase Total Protein 5.7 L Albumin 3.1 L Globulin 2.60 Albumin/Globulin 1.19 Ratio Test 05/05/18 05:48 05/05/18 12:39 Bedside Glucose 165 138 RUSS JEROME MD May 05, 2018 14:15
--- NOTE | 2018-05-05 15:03 | CONS ---
Date/Time of Note Date/Time of Note DATE: 05/05/18 TIME: 15:03 Assessment/Plan Assessment/Plan Chief Complaint/Hosp Course METASTATIC BREAST Cancer ( PRIMARY IS IN THE L BREAST ) with MULTIPLE BONY METS, PULMONARY METS SEVERE T-L SPINE PAIN WITH DIFFICULTIES TO AMBULATE MRI T-L SPINE- Diffuse osseous metastatic disease of the visualized thoracic spine (T10 - T12), the entire lumbar spine, sacrum, and bilateral iliac bones. Expansion of the posterior T9 vertebral body resulting in central canal stenosis with AP diameter measuring 8 mm. CONT IV STEROIDS CONT AI PAIN CONTROL RADONC AND NEUROSURG F-UP MRI C - SPINE AND R HIP BONE SCAN -Multiple skeletal metastases in the axial and appendicular skeleton PLAN- CONT XRT PAIN CONT OXYCONTIN Obesity. Weight loss 60 pounds during the last 2 years by diet PMS. Myopia. Anemia chronic disease. Anxiety disorder. Posttraumatic stress disorder. Pain in the left forearm with a history of fracture of ulna and radius. 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 Consultation Date/Type/Reason Admit Date/Time Apr 25, 2018 at 14:37 Initial Consult Date 04/25/18 [facility] Request[facility] Provider: RUSS JEROME MD 24 HR Interval Summary Free Text/Dictation D/W DR BARON Exam/Review of Systems Vital Signs Vitals Vital Signs Date Temp Pulse Resp B/P (MAP) Pulse Ox O2 O2 Flow FiO2 Time Delivery Rate 05/05/18 97.9 84 18 120/75 93 10:00 (90) 05/05/18 Room Air 09:23 05/02/18 2.0 08:00 Intake and Output 05/04/18 05/04/18 05/05/18 1515:00 23:00 07:00 IntakeIntake Total 630 ml 550 ml 200 ml OutputOutput Total 200 ml BalanceBalance 630 ml 350 ml 200 ml Exam Exam Constitutional: alert, oriented, well developed, distress, frail; No non-verbal, No other Psych: anxiety, depression; No no complaints, No nl mood/affect, No confusion, No suicidal, No other Head: normocephalic, atraumatic; No lacerations, No hematomas, No other Eyes: EOMI, nl lids, PERRL; No nl conjunctiva, No nl sclera, No icteric, No fundi, disc, No other ENMT: tympanic membranes; No nl external ears & nose, No nl lips & teeth, No nl nasal mucosa & septum, No mucosa pink and moist, No intubated, No other Neck: supple, non-tender, jvd, bruits; No masses, No thyromegaly, No nuchal rigidity, No other Respiratory: clear to auscultation, normal air movement, crackles/rales, diminished breath sounds, respirations; No congested cough, No intercostal retraction, No labored breathing, No tactile fremitus, No wheezing, No other Cardiovascular: regular rate and rhythm, bruits, jugular venous distention (JVD), systolic murmur; No nl pulses, No diastolic murmur, No edema, No gallop, No irregular rhythm, No murmurs/extra sounds, No rub, No S3, No S4, No other Gastrointestinal: soft, non-tender, bowel sounds, distended, hepatomegaly, other (Obesity with thick fatty layer of the anterior abdominal wall with no rebound.); No nl liver, spleen, No ascites, No firm, No mass, No rebound or guarding, No splenomegaly, No surgical scars, No tender Genitourinary - Female: nl adnexae, nl external genitalia, CVA tenderness; No CMT, No uterus, No other Musculoskeletal: joint tenderness, muscle tone, muscle weakness, spine non- tender (Severe tenderness of the intrascapular area lumbosacral area with great difficulty to get up to move. 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; No nl mental status, No nl speech, No nl strength, No confused, No DTR's symmetric, No focal weakness, No lethargic, No numbness, No reflexes, No unresponsive, No other Skin: nl turgor; No rash or lesions, No diaphoresis, No ecchymosis, No laceration, No puncture, No other Lymph: No nl lymph nodes, No enlarged, No nontender, No other BREAST- LARGE L BREAST MASS Medications Medications Current Medications Anastrozole (Arimidex) 1 mg DAILY PO Last administered on 05/05/18 10:00; Admin Dose 1 MG; Start 04/25/18 at 19:00 Dexamethasone (Decadron) 4 mg Q8 IV Last administered on 05/05/18 14:22; Admin Dose 4 MG; Start 04/25/18 at 22:00 Zolpidem Tartrate (Ambien) 10 mg HS PRN PO INSOMNIA; Start 04/25/18 at 23:30 Lorazepam (Ativan) 0.5 mg TID PRN PO ANXIETY Last administered on 05/05/18 00:34; Admin Dose 0.5 MG; Start 04/25/18 at 23:30 Enoxaparin Sodium (Lovenox) 40 mg DAILY SC Last administered on 05/05/18 10:01; Admin Dose 40 MG; Start 04/26/18 at 09:30 Magnesium Hydroxide (Milk Of Mag) 30 ml DAILY PRN PO CONSTIPATION Last administered on 04/29/18at 09:04; Admin Dose 30 ML; Start 04/27/18 at 21:00 Morphine Sulfate (morphine) 3 mg Q4H PRN IV SEVERE PAIN LEVEL 7-10 Last administered on 05/05/18 14:25; Admin Dose 3 MG; Start 04/27/18 at 21:00 Amlodipine Besylate (Norvasc) 5 mg BID PO Last administered on 05/05/18 09:59; Admin Dose 5 MG; Start 04/28/18 at 04:00 Polyethylene Glycol (Miralax) 17 gm BID PO Last administered on 05/05/18at 09:59; Admin Dose 17 GM; Start 04/29/18 at 21:00 Docusate Sodium (Colace) 200 mg BID PO Last administered on 05/05/18 09:59; Admin Dose 200 MG; Start 04/29/18 at 21:00 Miscellaneous Information 1 ea NOTE XX ; Start 04/29/18 at 10:30 Glucose (Glutose) 15 gm Q15M PRN PO DECREASED GLUCOSE; Start 04/29/18 at 10:30 Glucose (Glutose) 22.5 gm Q15M PRN PO DECREASED GLUCOSE; Start 04/29/18 at 10:30 Dextrose (D50w Syringe) 25 ml Q15M PRN IV DECREASED GLUCOSE; Start 04/29/18 at 10:30 Dextrose (D50w Syringe) 50 ml Q15M PRN IV DECREASED GLUCOSE; Start 04/29/18 at 10:30 Glucagon (Glucagen) 1 mg Q15M PRN IM DECREASED GLUCOSE; Start 04/29/18 at 10:30 Glucose (Glutose) 15 gm Q15M PRN BUCCAL DECREASED GLUCOSE; Start 04/29/18 at 10:30 Benazepril HCl (Lotensin) 5 mg BID PO Last administered on 05/05/18at 09:59; Admin Dose 5 MG; Start 04/29/18 at 21:00 Insulin Aspart (Novolog Insulin Pen) NOVOLOG *MILD* ALGORI... Q6 SC Last administered on 05/05/18at 05:50; Admin Dose 1 UNIT; Start 05/01/18 at 12:00 Oxycodone HCl (Oxycontin) 20 mg BID PO Last administered on 05/05/18at 10:05; Admin Dose 20 MG; Start 05/01/18 at 21:00 Ciprofloxacin (Cipro) 500 mg BID@ PO ; Start 05/05/18 at 14:45 Results Result Diagram: 05/05/18 0425 05/05/18 0425 Results 24 hrs Laboratory Tests Test 05/04/18 16:35 05/04/18 17:41 05/05/18 00:31 05/05/18 04:25 Urine Color YELLOW Urine Clarity CLOUDY A Urine pH 5.0 Urine Specific 1.021 [place] Urine Ketones NEGATIVE Urine Nitrite NEGATIVE Urine Bilirubin NEGATIVE Urine 1+ H Urobilinogen Urine Leukocyte 2+ H Esterase Urine 2 Microscopic RBC Urine 95 H Microscopic WBC Urine Bacteria MANY A Urine Mucus FEW A Urine Hemoglobin NEGATIVE Urine Glucose NEGATIVE Urine Total NEGATIVE Protein Bedside Glucose 190 195 White Blood 10.9 #H Count Red Blood Count 3.72 L Hemoglobin 11.3 L Hematocrit 35.4 L Mean Corpuscular 95.2 Volume Mean Corpuscular 30.4 Hemoglobin Mean Corpuscular 31.9 L Hemoglobin Karen nt Red Cell 13.3 Distribution Width Platelet Count 432 #H Mean Platelet 9.5 Volume Immature 0.500 H Granulocytes % Neutrophils % 85.4 H Lymphocytes % 6.6 L Monocytes % 7.3 Eosinophils % 0.1 Basophils % 0.1 Nucleated Red 0.0 Blood Cells % Immature 0.060 H Granulocytes # Neutrophils # 9.3 H Lymphocytes # 0.7 L Monocytes # 0.8 Eosinophils # 0.0 Basophils # 0.0 Nucleated Red 0.0 Blood Cells # Sodium Level 137 Potassium Level 5.3 H Chloride Level 100 Carbon Dioxide 28 Level Anion Gap 9 Blood Urea 20 Nitrogen Creatinine 0.49 Est Glomerular > 60 Filtrat Rate mL/min Glucose Level 191 Calcium Level 8.1 L Total Bilirubin 0.2 Direct Bilirubin 0.00 Indirect 0.2 Bilirubin Aspartate Amino 30 Transf (AST/SGOT ) Alanine 28 Aminotransferase (ALT/SGPT) Alkaline 245 H Phosphatase Total Protein 5.7 L Albumin 3.1 L Globulin 2.60 Albumin/Globulin 1.19 Ratio Test 05/05/18 05:48 05/05/18 12:39 Bedside Glucose 165 138 DES DUNAWAY MD May 05, 2018 15:03
[2018-05-05 16:03] VITALS: BP 117/74; PULSE 86; RESP 18
[2018-05-05] MEDS: CIPROFLOXACIN 500 MG TAB PO SCH ×2 (17:09→21:52)
[2018-05-05 19:50] VITALS: BP 126/78; PULSE 89; RESP 18
--- NOTE | 2018-05-05 21:42 | CONS ---
DATE OF ADMISSION: 04/25/2018 DATE OF CONSULTATION: HISTORY OF PRESENT ILLNESS: The patient is a 58-year-old female who was admitted on 04/25/2018, when she came to the emergency room complaining of diffuse back pain. She obviously was diagnosed as hav ing breast cancer documented by biopsy with diffuse and extensive bony metastasis. According to the available information, she has been suffering from back pain; however, the breast ca ncer and metastasis has not been diagnosed until about 3 months prior to her admission. At this time, she was complaining of constant pain involving her right hip and radiologic evaluation revealed rather extensive metastatic lesion involving the right hip, and orthopedic surgery was consu lted for a possible surgical solution for her problems with possible palliative surgical intervention . She had a radiotherapy; however, no chemotherapy has been carried out. PHYSICAL EXAMINATION: My examination revealed a 58-year-old female who is understandably worried and depressed. There was a tenderness during the range of motion of the right hip. She obviously had a pain during the range of motion of the right hip; however, there were no signs of acute fracture suc h as a local swelling, acute tenderness, or abnormal shortening of the right lower extremity or abnor mal rotation of the lower extremities. Multiple diagnostic studies including an MRI scan of the entire spine and pelvis and bone scan was av ailable for my review and it is showing extensive and widespread metastatic lesions involving spine s car, ribs, sternum, and pelvis and the hip, especially the right hip MRI scan is showing obvious meta static lesion in the pelvic portion of the right hip along with the involvement of the proximal porti on of the right femur including femoral head and neck and proximal femur including the intertrochante fitz area and proximal shaft. DIAGNOSTIC IMPRESSION: 1. Breast cancer with extensive and widespread bony metastasis. 2. Extensive bony metastasis involving right hip including pelvic portion of the right hip, includin g entire acetabulum and the proximal femur, including femoral head and neck and intertrochanteric are a and proximal shaft of the femur. Because of the extensive and widespread metastatic lesion involving both vestibular part and proximal femoral part of the right hip and even if any surgical procedure is considered, she will need a spec ial custom made acetabular part and proximal femoral part, which can be done in a big [facility], probably by oncologic orthopedic surgeon. Even if surgery is considered and she needs to be t ransferred to a major medical center for the higher level of care including evaluation and care by on cology orthopedic surgeon, it is possible that because of the extensiveness of the metastatic lesions further surgical treatment may not be the recommended. Dictated By: ALMA AKINS/NTS Conf#: [id number] DID#: [id number] CC: RUSS JEROME MD;*EndCC*
[2018-05-06] MEDS: morphine 4 MG/ML VIAL IV PRN ×5 (04:00→22:26)
[2018-05-06] MEDS: CIPROFLOXACIN 500 MG TAB PO SCH ×2 (06:03→18:13)
[2018-05-06] MEDS: DEXAMETHASONE 4 MG/ML 1 ML INJ IV SCH ×3 (06:03→21:43)
[2018-05-06] MEDS: INSULIN ASPART [NOVOLOG] 3 ML PEN SC SCH ×4 (06:04→23:53)
[2018-05-06] MEDS: LORAZEPAM 0.5 MG TAB PO PRN ×2 (07:01→23:51)
[2018-05-06 08:57] VITALS: BP 139/83; PULSE 89; RESP 19
[2018-05-06] MEDS: DOCUSATE SODIUM 100 MG CAP PO SCH ×2 (09:06→21:43)
[2018-05-06] MEDS: BENAZEPRIL 5 MG TAB PO SCH ×2 (09:07→21:42)
[2018-05-06] MEDS: POLYETHYLENE GLYCOL 17 GM PACKET PO SCH ×2 (09:07→21:43)
[2018-05-06] MEDS: oxyCODONE (CR) 20 MG TAB [oxyCONTIN] PO SCH ×2 (09:07→21:43)
[2018-05-06] MEDS: AMLODIPINE 5 MG TAB PO SCH ×2 (09:07→21:44)
[2018-05-06] MEDS: ENOXAPARIN 40 MG/0.4 ML SYG SC SCH (09:09)
[2018-05-06] MEDS: ANASTROZOLE 1 MG TAB PO SCH (09:10)
[2018-05-06 14:23] VITALS: BP 118/76; PULSE 87; RESP 18
--- NOTE | 2018-05-06 15:47 | CONS ---
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 Expansion of the posterior T9 vertebral body resulting in central canal stenosis with AP diameter measuring 8 mm. CONT IV STEROIDS CONT AI PAIN CONTROL RADONC AND NEUROSURG F-UP MRI C - SPINE AND R HIP BONE SCAN -Multiple skeletal metastases in the axial and appendicular skeleton PLAN- CONT XRT PAIN CONT OXYCONTIN Obesity. Weight loss 60 pounds during the last 2 years by diet PMS. Myopia. Anemia chronic disease. Anxiety disorder. Posttraumatic stress disorder. Pain in the left forearm with a history of fracture of ulna and radius. Tachycardia Incomplete data SOCIAL ISSUES [employer] Consultation Date/Type/Reason Admit Date/Time Apr 25, 2018 at 14:37 Initial Consult Date 04/25/18 [facility] Request[facility] Provider: RUSS JEROME MD 24 HR Interval Summary Free Text/Dictation ALL NOTED D/W RN Exam/Review of Systems Vital Signs Vitals Vital Signs Date Temp Pulse Resp B/P (MAP) Pulse Ox O2 O2 Flow FiO2 Time Delivery Rate 05/06/18 98.1 87 18 118/76 99 Room Air 14:23 (90) 05/06/18 2.0 07:15 Intake and Output 05/05/18 05/05/18 05/06/18 1414:59 22:59 06:59 IntakeIntake Total 840 ml 1180 ml 400 ml OutputOutput Total 100 ml BalanceBalance 840 ml 1080 ml 400 ml Exam Exam Constitutional: alert, oriented, well developed, distress, frail; No non-verbal, No other Psych: anxiety, depression; No no complaints, No nl mood/affect, No confusion, No suicidal, No other Head: normocephalic, atraumatic; No lacerations, No hematomas, No other Eyes: EOMI, nl lids, PERRL; No nl conjunctiva, No nl sclera, No icteric, No fundi, disc, No other ENMT: tympanic membranes; No nl external ears & nose, No nl lips & teeth, No nl nasal mucosa & septum, No mucosa pink and moist, No intubated, No other Neck: supple, non-tender, jvd, bruits; No masses, No thyromegaly, No nuchal rigidity, No other Respiratory: clear to auscultation, normal air movement, crackles/rales, diminished breath sounds, respirations; No congested cough, No intercostal retraction, No labored breathing, No tac tile fremitus, No wheezing, No other Cardiovascular: regular rate and rhythm, bruits, jugular venous distention (JVD), systolic murmur; No nl pulses, No diastolic murmur, No edema, No gallop, No irregular rhythm, No murmurs/extra sounds, No rub, No S3, No S4, No other Gastrointestinal: soft, non-tender, bowel sounds, distended, hepatomegaly, other (Obesity with thick fatty layer of the anterior abdominal wall with no rebound.); No nl liver, spleen, No ascites, No firm, No mass, No rebound or guarding, No splenomegaly, No surgical scars, No tender Genitourinary - Female: nl adnexae, nl external genitalia, CVA tenderness; No CMT, No uterus, No other Musculoskeletal: joint tenderness, muscle tone, muscle weakness, spine non- tender (Severe tenderness of the intrascapular area lumbosacral area with great difficulty to get up to move. 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: MOVIE CRITIC 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; No nl mental status, No nl speech, No nl strength, No confused, No DTR's symmetric, No focal weakness, No lethargic, No numbness, No reflexes, No unresponsive, No other Skin: nl turgor; No rash or lesions, No diaphoresis, No ecchymosis, No laceration, No puncture, No other Lymph: No nl lymph nodes, No enlarged, No nontender, No other BREAST- LARGE L BREAST MASS Medications Medications Current Medications Anastrozole (Arimidex) 1 mg DAILY PO Last administered on 05/06/18at 09:10; Admin Dose 1 MG; Start 04/25/18 at 19:00 Dexamethasone (Decadron) 4 mg Q8 IV Last administered on 05/06/18at 13:03; Admin Dose 4 MG; Start 04/25/18 at 22:00 Zolpidem Tartrate (Ambien) 10 mg HS PRN PO INSOMNIA; Start 04/25/18 at 23:30 Lorazepam (Ativan) 0.5 mg TID PRN PO ANXIETY Last administered on 05/06/18at 07:01; Admin Dose 0.5 MG; Start 04/25/18 at 23:30 Enoxaparin Sodium (Lovenox) 40 mg DAILY SC Last administered on 05/06/18at 09:09; Admin Dose 40 MG; Start 04/26/18 at 09:30 Magnesium Hydroxide (Milk Of Mag) 30 ml DAILY PRN PO CONSTIPATION Last administered on 04/29/18at 09:04; Admin Dose 30 ML; Start 04/27/18 at 21:00 Morphine Sulfate (morphine) 3 mg Q4H PRN IV SEVERE PAIN LEVEL 7-10 Last administered on 05/06/18at 13:02; Admin Dose 3 MG; Start 04/27/18 at 21:00 Amlodipine Besylate (Norvasc) 5 mg BID PO Last administered on 05/06/18at 09:07; Admin Dose 5 MG; Start 04/28/18 at 04:00 Polyethylene Glycol (Miralax) 17 gm BID PO Last administered on 05/06/18at 09:07; Admin Dose 17 GM; Start 04/29/18 at 21:00 Docusate Sodium (Colace) 200 mg BID PO Last administered on 05/06/18at 09:06; Admin Dose 200 MG; Start 04/29/18 at 21:00 Miscellaneous Information 1 ea NOTE XX ; Start 04/29/18 at 10:30 Glucose (Glutose) 15 gm Q15M PRN PO DECREASED GLUCOSE; Start 04/29/18 at 10:30 Glucose (Glutose) 22.5 gm Q15M PRN PO DECREASED GLUCOSE; Start 04/29/18 at 10:30 Dextrose (D50w Syringe) 25 ml Q15M PRN IV DECREASED GLUCOSE; Start 04/29/18 at 10:30 Dextrose (D50w Syringe) 50 ml Q15M PRN IV DECREASED GLUCOSE; Start 04/29/18 at 10:30 Glucagon (Glucagen) 1 mg Q15M PRN IM DECREASED GLUCOSE; Start 04/29/18 at 10:30 Glucose (Glutose) 15 gm Q15M PRN BUCCAL DECREASED GLUCOSE; Start 04/29/18 at 10:30 Benazepril HCl (Lotensin) 5 mg BID PO Last administered on 05/06/18at 09:07; Admin Dose 5 MG; Start 04/29/18 at 21:00 Insulin Aspart (Novolog Insulin Pen) NOVOLOG *MILD* ALGORI... Q6 SC Last administered on 05/06/18at 13:04; Admin Dose 1 UNIT; Start 05/01/18 at 12:00 Oxycodone HCl (Oxycontin) 20 mg BID PO Last administered on 05/06/18at 09:07; Admin Dose 20 MG; Start 05/01/18 at 21:00 Ciprofloxacin (Cipro) 500 mg BID@ PO Last administered on 05/06/18at 06:03; Admin Dose 500 MG; Start 05/05/18 at 14:45 Results Result Diagram: 05/05/18 0425 05/05/18 0425 Results 24 hrs Laboratory Tests Test 05/05/18 18:06 05/05/18 23:52 05/06/18 05:59 05/06/18 12:32 Bedside Glucose 181 232 H 149 159 DES DUNAWAY MD May 06, 2018 15:47
[2018-05-06 19:51] VITALS: BP 137/68; PULSE 88; RESP 18
--- NOTE | 2018-05-06 20:25 | PN ---
Date/Time of Note Date/Time of Note DATE: 05/06/18 TIME: 20:21 Assessment/Plan VTE Prophylaxis Risk score (from Nsg)>0 risk: 4 SCD applied (from Ns): Yes SCD contraindicated: low risk/ambulating Pharmacological prophylaxis: LMWH Lines/Catheters IV Catheter Type (from Nrsg): Saline Lock Central line still needed: No Urinary Cath still in place: No Reason Cath still needed: urinary retention Assessment/Plan Assessment/Plan 1. Cancer of the left and left breast. Exact type at this time unknown. 2. Severe pain in the interscapular and lumbar sacral area most probably metastatic lesion possible femoral fracture. pathologic fracture of T9 with 60% of loss of height. Neurosurgical consult planned. 3. Obesity. 4. Weight loss 60 pounds during the last 2 years by diet 5. PMS. 6. Myopia. 7. Anemia chronic disease. 8. Anxiety disorder. 9. Posttraumatic stress disorder. 10. Pain in the left forearm with a history of fracture of ulna and radius. 11. Tachycardia 12. Hypoxemia at night marginal improved after 2 L of nasal cannula oxygen. 13. Process at night. 14. 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 15.Pain syndrome. Cont Hosp Indication/DC Plan: Also consult Dr. Shane was called. to be evaluated for unstable right hip. Subjective 24 Hr Interval Summary Free Text/Dictation Severe pain in the left hip area. I am confused. Was going on with me I do not understand. Explained the patient that she has cancer of the breast which is metastasized different parts of the body. I explained that she does not have m any diseases she just have a complication of 1 disease. Explained the patient the plan of treatment. She is very emotional but very respectful and nice lady. Subjective hx not possible: pt critical status Constitutional: poor po, requiring IVF, requiring O2; No no complaints, No improved, No chills, No diaphoresis, No disoriented, No febrile, No other Eyes: No no complaints, No pain, No discharge, No redness, No visual change, No other ENT: No no complaints, No bleeding, No pain, No congestion, No discharge, No dysphagia, No sore throat, No other Respiratory: No no complaints, No pain, No cough, No pleuritic pain, No shortness of breath, No sputum, No wheezing, No other Cardiovascular: chest pain, lightheadedness, orthopenea, palpitations; No no complaints, No edema, No paroxysmal nocturnal dyspnea, No other Gastrointestinal: pain, flatus, passing stool; No no complaints, No blood, No constipation, No decreased appetite, No diarrhea, No nausea, No vomiting, No other Genitourinary: dysuria, discharge; No no complaints, No bleeding, No flank pain, No hematuria, No other Musculoskeletal: back pain, bone/joint pain, neck pain Skin: pruritis, rash; No no complaints, No bruising, No erythema, No laceration, No skin lesions, No other Neurologic: confusion, dizziness, headache; No no complaints, No focal-weakness, No syncope, No seizure, No other Endocrine: dry skin Lymphatic: adenopathy, tender nodes; No no complaints, No lymphadema, No other Psychological: anxiety; No no complaints, No nl mood/affect, No confusion, No depression, No suicidal, No other Exam/Review of Systems Vital Signs Vitals Vital Signs Date Temp Pulse Resp B/P (MAP) Pulse Ox O2 O2 Flow FiO2 Time Delivery Rate 05/06/18 98.0 88 18 137/68 96 Room Air 19:51 (91) 05/06/18 2.0 07:15 Intake and Output 05/05/18 05/05/18 05/06/18 1515:00 23:00 07:00 IntakeIntake Total 840 ml 1180 ml 400 ml OutputOutput Total 100 ml BalanceBalance 840 ml 1080 ml 400 ml Exam Constitutional: alert, oriented, well developed, distress, frail, obese; No non-verbal, No other Psych: anxiety, depression; No no complaints, No nl mood/affect, No confusion, No suicidal, No other Head: normocephalic, atraumatic; No lacerations, No hematomas, No other Eyes: EOMI, nl lids, PERRL; No nl conjunctiva, No nl sclera, No icteric, No fundi, disc, No other ENMT: nl external ears & nose, nl lips & teeth, nl nasal mucosa & septum, mucosa pink and moist; No intubated, No tympanic membranes, No other Neck: supple, jvd, thyromegaly; No non-tender, No bruits, No masses, No nuchal rigidity, No other Respiratory: normal air movement, congested cough, diminished breath sounds; No clear to auscultation, No crackles/rales, No intercostal retraction, No labored breathing, No respirations, No tactile fremitus, No wheezing, No other Cardiovascular: regular rate and rhythm, edema, jugular venous distention (JVD), systolic murmur; No nl pulses, No bruits, No diastolic murmur, No gallop, No irregular rhythm, No murmurs/extra sounds, No rub, No S3, No S4, No other Gastrointestinal: soft, nl liver, spleen, bowel sounds, distended, rebound or guarding; No non-tender, No ascites, No firm, No hepatomegaly, No mass, No splenomegaly, No surgical scars, No tender, No other Musculoskeletal: joint tenderness, muscle tone, muscle weakness; No nl extremities to inspection, No range of motion, No spine non-tender, No swelling, No other Extremities: No normal pulses, No calf tenderness, No cyanosis, No clubbing, No edema, No pitting pedal edema, No palpable cord, No tenderness, No other 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: ROOFING SUPERVISOR 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 (The anxious tends), nl mental status, nl speech, nl strength; No confused, No DTR's symmetric, No focal weakness, No lethargic, No numbness, No reflexes, No unresponsive, No other Skin: nl turgor; No rash or lesions, No diaphoresis, No ecchymosis, No laceration, No pu ncture, No other Medications Medications Current Medications Anastrozole (Arimidex) 1 mg DAILY PO Last administered on 05/06/18at 09:10; Admin Dose 1 MG; Start 04/25/18 at 19:00 Dexamethasone (Decadron) 4 mg Q8 IV Last administered on 05/06/18at 13:03; Admin Dose 4 MG; Start 04/25/18 at 22:00 Zolpidem Tartrate (Ambien) 10 mg HS PRN PO INSOMNIA; Start 04/25/18 at 23:30 Lorazepam (Ativan) 0.5 mg TID PRN PO ANXIETY Last administered on 05/06/18at 07:01; Admin Dose 0.5 MG; Start 04/25/18 at 23:30 Enoxaparin Sodium (Lovenox) 40 mg DAILY SC Last administered on 05/06/18at 09:09; Admin Dose 40 MG; Start 04/26/18 at 09:30 Magnesium Hydroxide (Milk Of Mag) 30 ml DAILY PRN PO CONSTIPATION Last administered on 04/29/18at 09:04; Admin Dose 30 ML; Start 04/27/18 at 21:00 Morphine Sulfate (morphine) 3 mg Q4H PRN IV SEVERE PAIN LEVEL 7-10 Last administered on 05/06/18at 18:13; Admin Dose 3 MG; Start 04/27/18 at 21:00 Amlodipine Besylate (Norvasc) 5 mg BID PO Last administered on 05/06/18 09:07; Admin Dose 5 MG; Start 04/28/18 at 04:00 Polyethylene Glycol (Miralax) 17 gm BID PO Last administered on 05/06/18 09:07; Admin Dose 17 GM; Start 04/29/18 at 21:00 Docusate Sodium (Colace) 200 mg BID PO Last administered on 05/06/18at 09:06; Admin Dose 200 MG; Start 04/29/18 at 21:00 Miscellaneous Information 1 ea NOTE XX ; Start 04/29/18 at 10:30 Glucose (Glutose) 15 gm Q15M PRN PO DECREASED GLUCOSE; Start 04/29/18 at 10:30 Glucose (Glutose) 22.5 gm Q15M PRN PO DECREASED GLUCOSE; Start 04/29/18 at 10:30 Dextrose (D50w Syringe) 25 ml Q15M PRN IV DECREASED GLUCOSE; Start 04/29/18 at 10:30 Dextrose (D50w Syringe) 50 ml Q15M PRN IV DECREASED GLUCOSE; Start 04/29/18 at 10:30 Glucagon (Glucagen) 1 mg Q15M PRN IM DECREASED GLUCOSE; Start 04/29/18 at 10:30 Glucose (Glutose) 15 gm Q15M PRN BUCCAL DECREASED GLUCOSE; Start 04/29/18 at 10:30 Benazepril HCl (Lotensin) 5 mg BID PO Last administered on 05/06/18at 09:07; Admin Dose 5 MG; Start 04/29/18 at 21:00 Insulin Aspart (Novolog Insulin Pen) NOVOLOG *MILD* ALGORI... Q6 SC Last administered on 05/06/18at 18:14; Admin Dose 2 UNIT; Start 11/14/18 at 12:00 Oxycodone HCl (Oxycontin) 20 mg BID PO Last administered on 05/06/18at 09:07; Admin Dose 20 MG; Start 05/01/18 at 21:00 Ciprofloxacin (Cipro) 500 mg BID@,18 PO Last administered on 05/06/18at 18:13; Admin Dose 500 MG; Start 05/05/18 at 14:45 Results Result Diagram: 05/05/18 0425 05/05/18 0425 Results 24 hrs Laboratory Tests Test 05/05/18 23:52 05/06/18 05:59 05/06/18 12:32 05/06/18 17:56 Bedside Glucose 232 H 149 159 211 RUSS JEROME MD May 06, 2018 20:25
[2018-05-07 00:09] VITALS: BP 122/76; PULSE 84; RESP 18
[2018-05-07] MEDS: INSULIN ASPART [NOVOLOG] 3 ML PEN SC SCH ×3 (06:00→17:45)
[2018-05-07] MEDS: DEXAMETHASONE 4 MG/ML 1 ML INJ IV SCH ×3 (06:05→22:07)
[2018-05-07] MEDS: CIPROFLOXACIN 500 MG TAB PO SCH ×2 (06:05→17:43)
[2018-05-07] MEDS: LORAZEPAM 0.5 MG TAB PO PRN ×2 (06:07→22:07)
[2018-05-07] MEDS: morphine 4 MG/ML VIAL IV PRN ×4 (06:49→22:07)
[2018-05-07 07:35] VITALS: BP 119/75; PULSE 86; RESP 18
[2018-05-07] MEDS: POLYETHYLENE GLYCOL 17 GM PACKET PO SCH ×2 (09:00→20:50)
[2018-05-07] MEDS: DOCUSATE SODIUM 100 MG CAP PO SCH ×2 (09:00→20:49)
[2018-05-07] MEDS: AMLODIPINE 5 MG TAB PO SCH ×2 (09:08→20:49)
[2018-05-07] MEDS: BENAZEPRIL 5 MG TAB PO SCH ×2 (09:08→20:49)
[2018-05-07] MEDS: ANASTROZOLE 1 MG TAB PO SCH (09:11)
[2018-05-07] MEDS: ENOXAPARIN 40 MG/0.4 ML SYG SC SCH (09:14)
[2018-05-07] MEDS: oxyCODONE (CR) 20 MG TAB [oxyCONTIN] PO SCH ×2 (10:34→20:50)
--- NOTE | 2018-05-07 13:10 | PN ---
Date/Time of Note Date/Time of Note DATE: 05/07/18 TIME: 13:08 Assessment/Plan VTE Prophylaxis Risk score (from Ns)>0 risk: 4 SCD applied (from Ns): Yes Pharmacological prophylaxis: LMWH Lines/Catheters IV [facility]ter [facility] (from [facility]): Saline Lock Central line still needed: No Urinary Cath still in place: No Reason Cath still needed: urinary retention Assessment/Plan Assessment/Plan 1. Cancer of the left and left breast. Exact type at this time unknown. 2. Severe pain in the interscapular and lumbar sacral area most probably metast atic lesion possible femoral fracture. pathologic fracture of T9 with 60% of loss of height. Neurosurgical consult planned. 3. Obesity. 4. Weight loss 60 pounds during the last 2 years by diet 5. PMS. 6. Myopia. 7. Anemia chronic disease. 8. Anxiety disorder. 9. Posttraumatic stress disorder. 10. Pain in the left forearm with a history of fracture of ulna and radius. 11. Tachycardia 12. Hypoxemia at night marginal improved after 2 L of nasal cannula oxygen. 13. Process at night. 14. 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 15.Pain syndrome. Subjective 24 Hr Interval Summary Free Text/Dictation Left hip area less intense. No fever and chills. Nausea vomiting. Vitals stable. Constitutional: poor po, requiring IVF, requiring O2; No no complaints, No improved, No chills, No diaphoresis, No disoriented, No febrile, No other Eyes: No no complaints, No pain, No discharge, No redness, No visual change, No other ENT: No no complaints, No bleeding, No pain, No congestion, No discharge, No dysphagia, No sore throat, No other Respiratory: No no complaints, No pain, No cough, No pleuritic pain, No shortness of breath, No sputum, No wheezing, No other Cardiovascular: chest pain, orthopenea, palpitations; No no complaints, No edema, No lightheadedness, No paroxysmal nocturnal dyspnea, No other Gastrointestinal: flatus, nausea, passing stool; No no complaints, No pain, No blood, No constipation, No decreased appetite, No diarrhea, No vomiting, No other Genitourinary: flank pain; No no complaints, No bleeding, No dysuria, No discharge, No hematuria, No other Musculoskeletal: bone/joint pain, neck pain; No no complaints, No back pain, No restricted range of motion, No swelling, No other Skin: bruising, erythema Neurologic: No no complaints, No confusion, No dizziness, No focal-weakness, No headache, No syncope, No seizure, No other Exam/Review of Systems Vital Signs Vitals Vital Signs Date Temp Pulse Resp B/P (MAP) Pulse Ox O2 O2 Flow FiO2 Time Delivery Rate 05/07/18 98.2 86 18 119/75 98 07:35 (90) 05/07/18 Room Air 00:09 05/06/18 2.0 20:15 Intake and Output 05/06/18 05/06/18 05/07/18 1515:00 23:00 07:00 IntakeIntake Total 800 ml 700 ml 400 ml BalanceBalance 800 ml 700 ml 400 ml Exam Constitutional: alert, oriented, well developed, distress, frail, obese; No non-verbal, No other Psych: anxiety; No no complaints, No nl mood/affect, No confusion, No depression, No suicidal, No other Eyes: EOMI, nl lids, PERRL; No nl conjunctiva, No nl sclera, No icteric, No fundi, disc, No other ENMT: nl external ears & nose, nl lips & teeth, nl nasal mucosa & septum; No mucosa pink and moist, No intubated, No tympanic membranes, No other Neck: jvd; No supple, No non-tender, No bruits, No masses, No thyromegaly, No nuchal rigidity, No other Respiratory: congested cough, crackles/rales, diminished breath sounds; No clear to auscultation, No normal air movement, No intercostal retraction, No labored breathing, No respirations, No tactile fremitus, No wheezing, No other Cardiovascular: regular rate and rhythm, systolic murmur; No nl pulses, No bruits, No diastolic murmur, No edema, No gallop, No irregular rhythm, No jugular venous distention (JVD), No murmurs/extra sounds, No rub, No S3, No S4, No other Gastrointestinal: nl liver, spleen, bowel sounds; No soft, No non-tender, No ascites, No distended, No firm, No hepatomegaly, No mass, No rebound or guarding, No splenomegaly, No surgical scars, No tender, No other Genitourinary - Female: CVA tenderness Musculoskeletal: nl gait and stance, joint tenderness, muscle tone, muscle weakness; No nl extremities to inspection, No range of motion, No spine non-tender, No swelling, No other Extremities: No normal pulses, No calf tenderness, No cyanosis, No clubbing, No edema, No pitting pedal edema, No palpable cord, No tenderness, No other 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: ACCOUNT TECHNICIAN 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, nl speech, nl strength; No confused, No DTR's symmetric, No focal weakness, No lethargic, No numbness, No reflexes, No unresponsive, No other Skin: nl turgor; No rash or lesions, No diaphoresis, No ecchymosis, No laceration, No puncture, No other Medications Medications Current Medications Anastrozole (Arimidex) 1 mg DAILY PO Last administered on 05/07/18 09:11; Admin Dose 1 MG; Start 04/25/18 at 19:00 Dexamethasone (Decadron) 4 mg Q8 IV Last administered on 05/07/18 06:05; Admin Dose 4 MG; Start 04/25/18 at 22:00 Zolpidem Tartrate (Ambien) 10 mg HS PRN PO INSOMNIA; Start 04/25/18 at 23:30 Lorazepam (Ativan) 0.5 mg TID PRN PO ANXIETY Last administered on 05/07/18 06:07; Admin Dose 0.5 MG; Start 04/25/18 at 23:30 Enoxaparin Sodium (Lovenox) 40 mg DAILY SC Last administered on 05/07/18 09:14; Admin Dose 40 MG; Start 04/26/18 at 09:30 Magnesium Hydroxide (Milk Of Mag) 30 ml DAILY PRN PO CONSTIPATION Last administered on 04/29/18 09:04; Admin Dose 30 ML; Start 04/27/18 at 21:00 Morphine Sulfate (morphine) 3 mg Q4H PRN IV SEVERE PAIN LEVEL 7-10 Last administered on 05/07/18at 06:49; Admin Dose 3 MG; Start 04/27/18 at 21:00 Amlodipine Besylate (Norvasc) 5 mg BID PO Last administered on 05/07/18 09:08; Admin Dose 5 MG; Start 04/28/18 at 04:00 Polyethylene Glycol (Miralax) 17 gm BID PO Last administered on 05/06/18at 21:43; Admin Dose 17 GM; Start 04/29/18 at 21:00 Docusate Sodium (Colace) 200 mg BID PO Last administered on 05/06/18at 21:43; Admin Dose 200 MG; Start 04/29/18 at 21:00 Miscellaneous Information 1 ea NOTE XX ; Start 04/29/18 at 10:30 Glucose (Glutose) 15 gm Q15M PRN PO DECREASED GLUCOSE; Start 04/29/18 at 10:30 Glucose (Glutose) 22.5 gm Q15M PRN PO DECREASED GLUCOSE; Start 04/29/18 at 10:30 Dextrose (D50w Syringe) 25 ml Q15M PRN IV DECREASED GLUCOSE; Start 04/29/18 at 10:30 Dextrose (D50w Syringe) 50 ml Q15M PRN IV DECREASED GLUCOSE; Start 04/29/18 at 10:30 Glucagon (Glucagen) 1 mg Q15M PRN IM DECREASED GLUCOSE; Start 04/29/18 at 10:30 Glucose (Glutose) 15 gm Q15M PRN BUCCAL DECREASED GLUCOSE; Start 04/29/18 at 10:30 Benazepril HCl (Lotensin) 5 mg BID PO Last administered on 05/07/18at 09:08; Admin Dose 5 MG; Start 04/29/18 at 21:00 Insulin Aspart (Novolog Insulin Pen) NOVOLOG *MILD* ALGORI... Q6 SC Last administered on 05/06/18at 23:53; Admin Dose 1 UNIT; Start 05/01/18 at 12:00 Oxycodone HCl (Oxycontin) 20 mg BID PO Last administered on 05/07/18at 10:34; Admin Dose 20 MG; Start 05/01/18 at 21:00 Ciprofloxacin (Cipro) 500 mg BID@ PO Last administered on 05/07/18at 06:05; Admin Dose 500 MG; Start 05/05/18 at 14:45 Results Result Diagram: 05/05/18 0425 05/05/18 0425 Results 24 hrs Laboratory Tests Test 05/06/18 17:56 05/06/18 23:49 05/07/18 06:04 Bedside Glucose 211 166 117 RUSS JEROME MD May 07, 2018 13:10
--- NOTE | 2018-05-07 13:56 | CONS ---
Date/Time of Note Date/Time of Note DATE: 05/07/18 TIME: 13:53 Assessment/Plan Assessment/Plan Chief Complaint/Hosp Course METASTATIC BREAST Cancer ( PRIMARY IS IN THE L BREAST ) with MULTIPLE BONY METS, PULMONARY METS SEVERE T-L SPINE PAIN WITH DIFFICULTIES TO AMBULATE MRI T-L SPINE- Diffuse osseous metastatic disease of the visualized thoracic spine (T10 - T12), the entire lumbar spine, sacrum, and bilateral iliac bones. Expansion of the posterior T9 vertebral body resulting in central canal stenosis with AP diameter measuring 8 mm. CONT IV STEROIDS CONT AI PAIN CONTROL RADONC AND NEUROSURG F-UP MRI C - SPINE AND R HIP BONE SCAN -Multiple skeletal metastases in the axial and appendicular skeleton PLAN- CONT XRT R FEMORAL LESION Because of the extensive and widespread metastatic lesion involving both vestibular part and proximal femoral part of the right hip and even if any surgical procedure is considered, she will need a special custom made acetabular part and proximal femoral part, which can be done in a big [facility], probably by oncologic orthopedic surgeon. Even if surgery is considered and she needs to be transferred to a [facility] level of care including evaluation and care by oncology orthopedic surgeon, it is possible that because of the extensiveness of the metastatic lesions further surgical treatment may not be the recommended. PAIN CONT OXYCONTIN Obesity. Weight loss 60 pounds during the last 2 years by diet PMS. Myopia. Anemia chronic disease. Anxiety disorder. Posttraumatic stress disorder. Pain in the left forearm with a history of fracture of ulna and radius. Tachycardia Incomplete data SOCIAL ISSUES [employer] AND SOCIAL SERVICE Consultation Date/Type/Reason Admit Date/Time Apr 25, 2018 at 14:37 Initial Consult Date 04/25/18 Type of Consultation: HEMEON Requesting Provider: RUSS JEROME MD 24 HR Interval Summary Free Text/Dictation all noted nad Exam/Review of Systems Vital Signs Vitals Vital Signs Date Temp Pulse Resp B/P (MAP) Pulse Ox O2 O2 Flow FiO2 Time Delivery Rate 05/07/18 98.2 86 18 119/75 98 07:35 (90) 05/07/18 Room Air 00:09 05/06/18 2.0 20:15 Intake and Output 05/06/18 05/06/18 05/07/18 1515:00 23:00 07:00 IntakeIntake Total 800 ml 700 ml 400 ml BalanceBalance 800 ml 700 ml 400 ml Exam Constitutional: alert, oriented, well developed, distress, frail; No non-verbal, No other Psych: anxiety, depression; No no complaints, No nl mood/affect, No confusion, No suicidal, No other Head: normocephalic, atraumatic; No lacerations, No hematomas, No other Eyes: EOMI, nl lids, PERRL; No nl conjunctiva, No nl sclera, No icteric, No fundi, disc, No other ENMT: tympanic membranes; No nl external ears & nose, No nl lips & teeth, No nl nasal mucosa & septum, No mucosa pink and moist, No intubated, No other Neck: supple, non-tender, jvd, bruits; No masses, No thyromegaly, No nuchal rigidity, No other Respiratory: clear to auscultation, normal air movement, crackles/rales, diminished breath sounds, respirations; No congested cough, No intercostal retraction, No labored breathing, No tactile fremitus, No wheezing, No other Cardiovascular: regular rate and rhythm, bruits, jugular venous distention (JVD), systolic murmur; No nl pulses, No diastolic murmur, No edema, No gallop, No irregular rhythm, No murmurs/extra sounds, No rub, No S3, No S4, No other Gastrointestinal: soft, non-tender, bowel sounds, distended, hepatomegaly, other (Obesity with thick fatty layer of the anterior abdominal wall with no rebound.); No nl liver, spleen, No ascites, No firm, No mass, No rebound or guarding, No splenomegaly, No surgical scars, No tender Genitourinary - Female: nl adnexae, nl external genitalia, CVA tenderness; No CMT, No uterus, No other Musculoskeletal: joint tenderness, muscle tone, muscle weakness, spine non- tender (Severe tenderness of the intrascapular area lumbosacral area with great difficulty to get up to move. 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: ANTHROPOLOGICAL LINGUIST 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; No nl mental status, No nl speech, No nl strength, No confused, No DTR's symmetric, No focal weakness, No lethargic, No numbness, No reflexes, No unresponsive, No other Skin: nl turgor; No rash or lesions, No diaphoresis, No ecchymosis, No laceration, No puncture, No other Lymph: No nl lymph nodes, No enlarged, No nontender, No other BREAST- LARGE L BREAST MASS Medications Medications Current Medications Anastrozole (Arimidex) 1 mg DAILY PO Last administered on 05/07/18 09:11; Admin Dose 1 MG; Start 04/25/18 at 19:00 Dexamethasone (Decadron) 4 mg Q8 IV Last administered on 05/07/18 06:05; Admin Dose 4 MG; Start 04/25/18 at 22:00 Zolpidem Tartrate (Ambien) 10 mg HS PRN PO INSOMNIA; Start 04/25/18 at 23:30 Lorazepam (Ativan) 0.5 mg TID PRN PO ANXIETY Last administered on 05/07/18 06:07; Admin Dose 0.5 MG; Start 04/25/18 at 23:30 Enoxaparin Sodium (Lovenox) 40 mg DAILY SC Last administered on 05/07/18 09:14; Admin Dose 40 MG; Start 04/26/18 at 09:30 Magnesium Hydroxide (Milk Of Mag) 30 ml DAILY PRN PO CONSTIPATION Last administered on 04/29/18 09:04; Admin Dose 30 ML; Start 04/27/18 at 21:00 Morphine Sulfate (morphine) 3 mg Q4H PRN IV SEVERE PAIN LEVEL 7-10 Last administered on 05/07/18 06:49; Admin Dose 3 MG; Start 04/27/18 at 21:00 Amlodipine Besylate (Norvasc) 5 mg BID PO Last administered on 05/07/18 09:08; Admin Dose 5 MG; Start 04/28/18 at 04:00 Polyethylene Glycol (Miralax) 17 gm BID PO Last administered on 05/06/18 21:43; Admin Dose 17 GM; Start 04/29/18 at 21:00 Docusate Sodium (Colace) 200 mg BID PO Last administered on 11/19/18at 21:43; Admin Dose 200 MG; Start 04/29/18 at 21:00 Miscellaneous Information 1 ea NOTE XX ; Start 04/29/18 at 10:30 Glucose (Glutose) 15 gm Q15M PRN PO DECREASED GLUCOSE; Start 04/29/18 at 10:30 Glucose (Glutose) 22.5 gm Q15M PRN PO DECREASED GLUCOSE; Start 04/29/18 at 10:30 Dextrose (D50w Syringe) 25 ml Q15M PRN IV DECREASED GLUCOSE; Start 04/29/18 at 10:30 Dextrose (D50w Syringe) 50 ml Q15M PRN IV DECREASED GLUCOSE; Start 04/29/18 at 10:30 Glucagon (Glucagen) 1 mg Q15M PRN IM DECREASED GLUCOSE; Start 04/29/18 at 10:30 Glucose (Glutose) 15 gm Q15M PRN BUCCAL DECREASED GLUCOSE; Start 04/29/18 at 10:30 Benazepril HCl (Lotensin) 5 mg BID PO Last administered on 05/07/18at 09:08; Admin Dose 5 MG; Start 04/29/18 at 21:00 Insulin Aspart (Novolog Insulin Pen) NOVOLOG *MILD* ALGORI... Q6 SC Last administered on 05/06/18at 23:53; Admin Dose 1 UNIT; Start 05/01/18 at 12:00 Oxycodone HCl (Oxycontin) 20 mg BID PO Last administered on 05/07/18at 10:34; Admin Dose 20 MG; Start 05/01/18 at 21:00 Ciprofloxacin (Cipro) 500 mg BID@ PO Last administered on 05/07/18at 06:05; Admin Dose 500 MG; Start 05/05/18 at 14:45 Results Result Diagram: 05/05/18 0425 05/05/18 0425 Results 24 hrs Laboratory Tests Test 05/06/18 17:56 05/06/18 23:49 05/07/18 06:04 05/07/18 13:13 Bedside Glucose 211 166 117 128 DES DUNAWAY MD May 07, 2018 13:56
[2018-05-07 14:00] VITALS: BP 116/69; PULSE 92; RESP 18
[2018-05-07 20:32] VITALS: BP 125/72; PULSE 88; RESP 18
[2018-05-08] MEDS: INSULIN ASPART [NOVOLOG] 3 ML PEN SC SCH ×4 (00:20→18:11)
[2018-05-08 01:07] VITALS: BP 131/78; PULSE 80; RESP 18
[2018-05-08] MEDS: morphine 4 MG/ML VIAL IV PRN ×5 (03:07→19:42)
[2018-05-08] MEDS: CIPROFLOXACIN 500 MG TAB PO SCH ×2 (06:06→18:12)
[2018-05-08] MEDS: DEXAMETHASONE 4 MG/ML 1 ML INJ IV SCH ×3 (06:06→21:08)
[2018-05-08 08:35] VITALS: BP 138/90; PULSE 89; RESP 18
[2018-05-08] MEDS: DOCUSATE SODIUM 100 MG CAP PO SCH ×2 (09:46→20:41)
[2018-05-08] MEDS: AMLODIPINE 5 MG TAB PO SCH ×2 (09:47→20:42)
[2018-05-08] MEDS: BENAZEPRIL 5 MG TAB PO SCH ×2 (09:47→20:42)
[2018-05-08] MEDS: POLYETHYLENE GLYCOL 17 GM PACKET PO SCH ×2 (09:48→21:00)
[2018-05-08] MEDS: oxyCODONE (CR) 20 MG TAB [oxyCONTIN] PO SCH ×2 (09:48→20:42)
[2018-05-08] MEDS: ANASTROZOLE 1 MG TAB PO SCH (09:48)
--- NOTE | 2018-05-08 12:56 | CONS ---
Date/Time of Note Date/Time of Note DATE: 05/08/18 TIME: 12:56 Assessment/Plan Assessment/Plan Chief Complaint/Hosp Course METASTATIC BREAST Cancer ( PRIMARY IS IN THE L BREAST ) with MULTIPLE BONY METS, PULMONARY METS SEVERE T-L SPINE PAIN WITH DIFFICULTIES TO AMBULATE MRI T-L SPINE- Diffuse osseous metastatic disease of the visualized thoracic spine (T10 - T12), the entire lumbar spine, sacrum, and bilateral iliac bones. Expansion of the posterior T9 vertebral body resulting in central canal stenosis with AP diameter measuring 8 mm. CONT IV STEROIDS CONT AI PAIN CONTROL RADONC AND NEUROSURG F-UP MRI C - SPINE AND R HIP BONE SCAN -Multiple skeletal metastases in the axial and appendicular skeleton PLAN- CONT XRT R FEMORAL LESION Because of the extensive and widespread metastatic lesion involving both vestibular part and proximal femoral part of the right hip and even if any surgical procedure is considered, she will need a special custom made acetabular part and proximal femoral part, which can be done in a big [facility], probably by oncologic orthopedic surgeon. Even if surgery is considered and she needs to be transferred to a [facility] the [facility] level of care including evaluation and care by oncology orthopedic surgeon, it is possible that because of the extensiveness of the metastatic lesions further surgical treatment may not be the recommended. PAIN CONT OXYCONTIN Obesity. Weight loss 60 pounds during the last 2 years by diet PMS. Myopia. Anemia chronic disease. Anxiety disorder. Posttraumatic stress disorder. Pain in the left forearm with a history of fracture of ulna and radius. Tachycardia Incomplete data SOCIAL ISSUES [employer] AND SOCIAL SERVICE Consultation Date/Type/Reason Admit Date/Time Apr 25, 2018 at 14:37 Initial Consult Date 04/25/18 Type of Consultation: HEMEON Requesting Provider: RUSS JEROME MD 24 HR Interval Summary Free Text/Dictation ALL NOTED Exam/Review of Systems Vital Signs Vitals Vital Signs Date Temp Pulse Resp B/P (MAP) Pulse Ox O2 O2 Flow FiO2 Time Delivery Rate 05/08/18 98.6 89 18 138/90 95 Room Air 08:35 (106) 05/06/18 2.0 20:15 Intake and Output 05/07/18 05/07/18 05/08/18 1515:00 23:00 07:00 IntakeIntake Total 700 ml 250 ml OutputOutput Total 150 ml 200 ml BalanceBalance 550 ml 50 ml Exam Constitutional: alert, oriented, well developed, distress, frail; No non-verbal, No other Psych: anxiety, depression; No no complaints, No nl mood/affect, No confusion, No suicidal, No other Head: normocephalic, atraumatic; No lacerations, No hematomas, No other Eyes: EOMI, nl lids, PERRL; No nl conjunctiva, No nl sclera, No icteric, No fundi, disc, No other ENMT: tympanic membranes; No nl external ears & nose, No nl lips & teeth, No nl nasal mucosa & septum, No mucosa pink and moist, No intubated, No other Neck: supple, non-tender, jvd, bruits; No masses, No thyromegaly, No nuchal rigidity, No other Respiratory: clear to auscultation, normal air movement, crackles/rales, diminished breath sounds, respirations; No congested cough, No intercostal retraction, No labored breathing, No tactile fremitus, No wheezing, No other Cardiovascular: regular rate and rhythm, bruits, jugular venous distention (JVD), systolic murmur; No nl pulses, No diastolic murmur, No edema, No gallop, No irregular rhythm, No murmurs/extra sounds, No rub, No S3, No S4, No other Gastrointestinal: soft, non-tender, bowel sounds, distended, hepatomegaly, other (Obesity with thick fatty layer of the anterior abdominal wall with no rebound.); No nl liver, spleen, No ascites, No firm, No mass, No rebound or guarding, No splenomegaly, No surgical scars, No tender Genitourinary - Female: nl adnexae, nl external genitalia, CVA tenderness; No CMT, No uterus, No other Musculoskeletal: joint tenderness, muscle tone, muscle weakness, spine non- tender (Severe tenderness of the intrascapular area lumbosacral area with great difficulty to get up to move. 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: ADAPTIVE PHYSICAL EDUCATOR 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; No nl mental status, No nl speech, No nl strength, No confused, No DTR's symmetric, No focal weakness, No lethargic, No numbness, No reflexes, No unresponsive, No other Skin: nl turgor; No rash or lesions, No diaphoresis, No ecchymosis, No laceration, No puncture, No other Lymph: No nl lymph nodes, No enlarged, No nontender, No other BREAST- LARGE L BREAST MASS Medications Medications Current Medications Anastrozole (Arimidex) 1 mg DAILY PO Last administered on 05/08/18 09:48; Admin Dose 1 MG; Start 04/25/18 at 19:00 Dexamethasone (Decadron) 4 mg Q8 IV Last administered on 05/08/18 06:06; Admin Dose 4 MG; Start 04/25/18 at 22:00 Zolpidem Tartrate (Ambien) 10 mg HS PRN PO INSOMNIA; Start 04/25/18 at 23:30 Lorazepam (Ativan) 0.5 mg TID PRN PO ANXIETY Last administered on 05/07/18 22:07; Admin Dose 0.5 MG; Start 04/25/18 at 23:30 Enoxaparin Sodium (Lovenox) 40 mg DAILY SC Last administered on 05/07/18 09:14; Admin Dose 40 MG; Start 04/26/18 at 09:30 Magnesium Hydroxide (Milk Of Mag) 30 ml DAILY PRN PO CONSTIPATION Last administered on 04/29/18 09:04; Admin Dose 30 ML; Start 04/27/18 at 21:00 Morphine Sulfate (morphine) 3 mg Q4H PRN IV SEVERE PAIN LEVEL 7-10 Last administered on 05/08/18 11:12; Admin Dose 3 MG; Start 04/27/18 at 21:00 Amlodipine Besylate (Norvasc) 5 mg BID PO Last administered on 05/08/18 09:47; Admin Dose 5 MG; Start 04/28/18 at 04:00 Polyethylene Glycol (Miralax) 17 gm BID PO Last administered on 05/08/18 09:48; Admin Dose 17 GM; Start 04/29/18 at 21:00 Docusate Sodium (Colace) 200 mg BID PO Last administered on 05/08/18 09:46; Admin Dose 200 MG; Start 04/29/18 at 21:00 Miscellaneous Information 1 ea NOTE XX ; Start 04/29/18 at 10:30 Glucose (Glutose) 15 gm Q15M PRN PO DECREASED GLUCOSE; Start 04/29/18 at 10:30 Glucose (Glutose) 22.5 gm Q15M PRN PO DECREASED GLUCOSE; Start 04/29/18 at 10:30 Dextrose (D50w Syringe) 25 ml Q15M PRN IV DECREASED GLUCOSE; Start 04/29/18 at 10:30 Dextrose (D50w Syringe) 50 ml Q15M PRN IV DECREASED GLUCOSE; Start 04/29/18 at 10:30 Glucagon (Glucagen) 1 mg Q15M PRN IM DECREASED GLUCOSE; Start 04/29/18 at 10:30 Glucose (Glutose) 15 gm Q15M PRN BUCCAL DECREASED GLUCOSE; Start 04/29/18 at 10:30 Benazepril HCl (Lotensin) 5 mg BID PO Last administered on 05/08/18at 09:47; Admin Dose 5 MG; Start 04/29/18 at 21:00 Insulin Aspart (Novolog Insulin Pen) NOVOLOG *MILD* ALGORI... Q6 SC Last administered on 05/08/18at 06:09; Admin Dose 1 UNIT; Start 05/01/18 at 12:00 Oxycodone HCl (Oxycontin) 20 mg BID PO Last administered on 05/08/18at 09:48; Admin Dose 20 MG; Start 05/01/18 at 21:00 Ciprofloxacin (Cipro) 500 mg BID@ PO Last administered on 05/08/18at 06:06; Admin Dose 500 MG; Start 05/05/18 at 14:45 Results Result Diagram: 05/05/18 0425 05/05/18 0425 Results 24 hrs Laboratory Tests Test 05/07/18 13:13 05/07/18 17:42 05/08/18 00:16 05/08/18 06:04 Bedside Glucose 128 204 206 150 Test 05/08/18 12:41 Bedside Glucose 126 DES DUNAWAY MD May 08, 2018 12:56
--- NOTE | 2018-05-08 19:56 | PN ---
Date/Time of Note Date/Time of Note DATE: 05/08/18 TIME: 19:50 Assessment/Plan VTE Prophylaxis Risk score (from Nsg)>0 risk: 4 SCD applied (from Nsg): Yes SCD contraindicated: low risk/ambulating Pharmacological prophylaxis: LMWH Lines/Catheters IV Catheter Type (from Nrsg): Sal[place] Lock Central line still needed: No Urinary Cath still in place: No Reason Cath still needed: urinary retention Assessment/Plan Assessment/Plan 1. Cancer of the left and left breast. Exact type at this time unknown.MULTIPLE BONY METS, PULMONARY METS 2. Severe pain in the interscapular and lumbar sacral area most probably metastatic lesion possible femoral fracture. pathologic fracture of T9 with 60% of loss of height. Neurosurgical consult planned. 3. Obesity. 4. Weight loss 60 pounds during the last 2 years by diet 5. PMS. 6. Myopia. 7. Anemia chronic disease. 8. Anxiety disorder. 9. Posttraumatic stress disorder. 10. Pain in the left forearm with a history of fracture of ulna and radius. 11. Tachycardia 12. Hypoxemia at night marginal improved after 2 L of nasal cannula oxygen. 13. Process at night. 14. 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 15.Pain syndrome. SEVERE T-L SPINE PAIN WITH DIFFICULTIES TO AMBULATE MRI T-L SPINE- Diffuse osseous metastatic disease of the visualized thoracic spine (T10 - T12), the entire lumbar spine, sacrum, and bilateral iliac bones. Expansion of the posterior T9 vertebral body resulting in central canal stenosis with AP diameter measuring 8 mm. CONT IV STEROIDS CONT AI; RADONC AND NEUROSURG F-UP BONE SCAN -Multiple skeletal metastases in the axial and appendicular skeleton PLAN- CONT XRT ; R FEMORAL LESION From the note of Dr Palomino: Because of the extensive and widespread metastatic lesion involving both vestibular part and proximal femoral part of the right hip and even if any surgical procedure is considered, she will need a special custom made acetabular part and proximal femoral part, which can be done in a [facility], probably by oncologic orthopedic surgeon. Even if surgery is considered and she needs to be transferred to a [facility] for the higher level of care including evaluation and care by oncology orthopedic surgeon, it is possible that because of the extensiveness of the metastatic lesions further surgical treatment may not be the recommended. Subjective 24 Hr Interval Summary Free Text/Dictation My back is very stiff. It is really makes me to move like a stone. I am not flexible anymore. Even mild movement severely exacerbating pain. Now and I found the position in which the pain is less intense. Subjective hx not possible: pt critical Constitutional: improved, poor po, requiring O2; No no complaints, No chills, No diaphoresis, No febrile, No requiring IVF, No other Eyes: No no complaints, No pain, No discharge, No redness, No visual change, No other ENT: No no complaints, No bleeding, No pain, No congestion, No discharge, No dysphagia, No sore throat, No other Respiratory: No no complaints, No pain, No cough, No pleuritic pain, No shortness of breath, No sputum, No wheezing, No other Cardiovascular: chest pain; No no complaints, No edema, No lightheadedness, No orthopenea, No palpitatio ns, No paroxysmal nocturnal dyspnea, No other Gastrointestinal: constipation, decreased appetite; No no complaints, No pain, No blood, No diarrhea, No flatus, No nausea, No passing stool, No vomiting, No other Genitourinary: dysuria; No no complaints, No bleeding, No discharge, No flank pain, No hematuria, No other Musculoskeletal: back pain, bone/joint pain; No no complaints, No neck pain, No restricted range of motion, No swelling, No other Skin: bruising; No no complaints, No erythema, No laceration, No pruritis, No rash, No skin lesions, No other Neurologic: headache; No no complaints, No confusion, No dizziness, No focal-weakness, No syncope, No seizure, No other Lymphatic: No no complaints, No adenopathy, No tender nodes, No lymphadema, No other Psychological: anxiety, depression; No no complaints, No nl mood/affect, No confusion, No suicidal, No other Exam/Review of Systems Vital Signs Vitals Vital Signs Date Temp Pulse Resp B/P (MAP) Pulse Ox O2 O2 Flow FiO2 Time Delivery Rate 05/08/18 98.6 89 18 138/90 95 Room Air 08:35 (106) 05/06/18 2.0 20:15 Intake and Output 05/07/18 05/07/18 05/08/18 1515:00 23:00 07:00 IntakeIntake Total 700 ml 250 ml OutputOutput Total 150 ml 200 ml BalanceBalance 550 ml 50 ml Exam Constitutional: alert, oriented, well developed, distress, frail, obese; No non-verbal, No other Psych: anxiety, depression; No no complaints, No nl mood/affect, No confusion, No suicidal, No other Head: normocephalic, atraumatic; No lacerations, No hematomas, No other Eyes: EOMI, nl lids; No nl conjunctiva, No nl sclera, No PERRL, No icteric, No fundi, disc, No other ENMT: No nl external ears & nose, No nl lips & teeth, No nl nasal mucosa & septum, No mucosa pink and moist, No intubated, No tympanic membranes, No other Neck: non-tender; No supple, No jvd, No bruits, No masses, No thyromegaly, No nuchal rigidity, No other Respiratory: congested cough, crackles/rales, diminished breath sounds; No clear to auscultation, No normal air movement, No intercostal retraction, No labored breathing, No respirations, No tactile fremitus, No wheezing, No other Cardiovascular: regular rate and rhythm, bruits, jugular venous distention (JVD), systolic murmur; No nl pulses, No diastolic murmur, No edema, No gallop, No irregular rhythm, No murmurs/extra sounds, No rub, No S3, No S4, No other Gastrointestinal: soft, nl liver, spleen, non-tender, bowel sounds; No ascites, No distended, No firm, No hepatomegaly, No mass, No rebound or guarding, No splenomegaly, No surgical scars, No tender, No other Genitourinary - Female: CVA tenderness; No nl adnexae, No nl external genitalia, No CMT, No uterus, No other Musculoskeletal: nl gait and stance (Making big effort to move with help but it exacerbates the pain stops movement. To use the toilet without help but it is evident that she is suffering a lot.), joint tenderness, muscle tone, muscle weakness Extremities: normal pulses; No calf tenderness, No cyanosis, No clubbing, No edema, No pitting pedal edema, No palpable cord, No tenderness, No other 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: FIRE ASSISTANT 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; No nl mental status, No nl speech, No nl strength, No confused, No DTR's symmetric, No focal weakness, No lethargic, No numbness, No reflexes, No unresponsive, No other Skin: rash or lesions; No nl turgor, No diaphoresis, No ecchymosis, No laceration, No puncture, No other Lymph: nl lymph nodes; No enlarged, No nontender, No other Medications Medications Current Medications Anastrozole (Arimidex) 1 mg DAILY PO Last administered on 05/08/18 09:48; Admin Dose 1 MG; Start 04/25/18 at 19:00 Dexamethasone (Decadron) 4 mg Q8 IV Last administered on 05/08/18at 15:46; Admin Dose 4 MG; Start 04/25/18 at 22:00 Zolpidem Tartrate (Ambien) 10 mg HS PRN PO INSOMNIA; Start 04/25/18 at 23:30 Lorazepam (Ativan) 0.5 mg TID PRN PO ANXIETY Last administered on 05/07/18 22:07; Admin Dose 0.5 MG; Start 04/25/18 at 23:30 Magnesium Hydroxide (Milk Of Mag) 30 ml DAILY PRN PO CONSTIPATION Last administered on 04/29/18 09:04; Admin Dose 30 ML; Start 04/27/18 at 21:00 Morphine Sulfate (morphine) 3 mg Q4H PRN IV SEVERE PAIN LEVEL 7-10 Last administered on 05/08/18at 19:42; Admin Dose 3 MG; Start 04/27/18 at 21:00 Amlodipine Besylate (Norvasc) 5 mg BID PO Last administered on 05/08/18 09:47; Admin Dose 5 MG; Start 04/28/18 at 04:00 Polyethylene Glycol (Miralax) 17 gm BID PO Last administered on 05/08/18 09:48; Admin Dose 17 GM; Start 04/29/18 at 21:00 Docusate Sodium (Colace) 200 mg BID PO Last administered on 05/08/18 09:46; Admin Dose 200 MG; Start 04/29/18 at 21:00 Miscellaneous Information 1 ea NOTE XX ; Start 04/29/18 at 10:30 Glucose (Glutose) 15 gm Q15M PRN PO DECREASED GLUCOSE; Start 04/29/18 at 10:30 Glucose (Glutose) 22.5 gm Q15M PRN PO DECREASED GLUCOSE; Start 04/29/18 at 10:30 Dextrose (D50w Syringe) 25 ml Q15M PRN IV DECREASED GLUCOSE; Start 04/29/18 at 10:30 Dextrose (D50w Syringe) 50 ml Q15M PRN IV DECREASED GLUCOSE; Start 04/29/18 at 10:30 Glucagon (Glucagen) 1 mg Q15M PRN IM DECREASED GLUCOSE; Start 04/29/18 at 10:30 Glucose (Glutose) 15 gm Q15M PRN BUCCAL DECREASED GLUCOSE; Start 04/29/18 at 10:30 Benazepril HCl (Lotensin) 5 mg BID PO Last administered on 05/08/18at 09:47; Admin Dose 5 MG; Start 04/29/18 at 21:00 Insulin Aspart (Novolog Insulin Pen) NOVOLOG *MILD* ALGORI... Q6 SC Last administered on 05/08/18at 18:11; Admin Dose 1 UNIT; Start 05/01/18 at 12:00 Oxycodone HCl (Oxycontin) 20 mg BID PO Last administered on 05/08/18at 09:48; Admin Dose 20 MG; Start 05/01/18 at 21:00 Ciprofloxacin (Cipro) 500 mg BID@ PO Last administered on 05/08/18at 18:12; Admin Dose 500 MG; Start 05/05/18 at 14:45 Results Result Diagram: 05/05/18 0425 05/05/18 0425 Results 24 hrs Laboratory Tests Test 05/08/18 00:16 05/08/18 06:04 05/08/18 12:41 05/08/18 18:09 Bedside Glucose 206 150 126 173 RUSS JEROME MD May 08, 2018 19:56
[2018-05-08 20:09] VITALS: BP 125/78; PULSE 96; RESP 18
[2018-05-09] MEDS: INSULIN ASPART [NOVOLOG] 3 ML PEN SC SCH ×4 (00:27→17:46)
[2018-05-09] MEDS: morphine 4 MG/ML VIAL IV PRN ×5 (00:28→20:09)
[2018-05-09] MEDS: LORAZEPAM 0.5 MG TAB PO PRN (00:28)
[2018-05-09 02:10] VITALS: BP 128/73; PULSE 87; RESP 18
[2018-05-09] MEDS: CIPROFLOXACIN 500 MG TAB PO SCH ×2 (05:39→17:44)
[2018-05-09] MEDS: DEXAMETHASONE 4 MG/ML 1 ML INJ IV SCH ×3 (05:39→23:15)
[2018-05-09 07:31] VITALS: BP 125/78; PULSE 72; RESP 18
[2018-05-09] MEDS: DOCUSATE SODIUM 100 MG CAP PO SCH ×2 (09:25→20:08)
[2018-05-09] MEDS: ANASTROZOLE 1 MG TAB PO SCH (09:27)
[2018-05-09] MEDS: AMLODIPINE 5 MG TAB PO SCH ×2 (09:28→20:08)
[2018-05-09] MEDS: POLYETHYLENE GLYCOL 17 GM PACKET PO SCH ×2 (09:28→20:08)
[2018-05-09] MEDS: BENAZEPRIL 5 MG TAB PO SCH ×2 (09:28→20:10)
[2018-05-09] MEDS: oxyCODONE (CR) 20 MG TAB [oxyCONTIN] PO SCH ×2 (09:31→20:08)
--- NOTE | 2018-05-09 10:49 | CONS ---
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 Expansion of the posterior T9 vertebral body resulting in central canal stenosis with AP diameter measuring 8 mm. CONT IV STEROIDS CONT AI PAIN CONTROL RADONC AND NEUROSURG F-UP MRI C - SPINE AND R HIP BONE SCAN -Multiple skeletal metastases in the axial and appendicular skeleton PLAN- CONT XRT R FEMORAL LESION Because of the extensive and widespread metastatic lesion involving both vestibular part and proximal femoral part of the right hip and even if any surgical procedure is considered, she will need a special custom made acetabular part and proximal femoral part, which can be done in a big [facility], probably by oncologic orthopedic surgeon. Even if surgery is considered and she needs to be [facility] level of care including evaluation and care by oncology orthopedic surgeon, it is possible that because of the extensiveness of the metastatic lesions further surgical treatment may not be the recommended. PAIN CONT OXYCONTIN Obesity. Weight loss 60 pounds during the last 2 years by diet PMS. Myopia. Anemia chronic disease. Anxiety disorder. Posttraumatic stress disorder. Pain in the left forearm with a history of fracture of ulna and radius. Tachycardia Incomplete data [employer]UES [employer]GRAMMING [employer] Consultation Date/Type/Reason Admit Date/Time Apr 25, 2018 at 14:37 Initial Consult Date 04/25/18 Type of Consultation: HEMEON Requesting Provider: RUSS JEROME MD 24 HR Interval Summary Free Text/Dictation ALL NOTED Exam/Review of Systems Vital Signs Vitals Vital Signs Date Temp Pulse Resp B/P (MAP) Pulse Ox O2 O2 Flow FiO2 Time Delivery Rate 05/09/18 98.6 72 18 125/78 95 07:31 (94) 05/08/18 Room Air 08:35 05/06/18 2.0 20:15 Intake and Output 05/08/18 05/08/18 05/09/18 1515:00 23:00 07:00 IntakeIntake Total 760 ml 360 ml BalanceBalance 760 ml 360 ml Exam Constitutional: alert, oriented, well developed, distress, frail; No non-verbal, No other Psych: anxiety, depression; No no complaints, No nl mood/affect, No confusion, No suicidal, No other Head: normocephalic, atraumatic; No lacerations, No hematomas, No other Eyes: EOMI, nl lids, PERRL; No nl conjunctiva, No nl sclera, No icteric, No fundi, disc, No other ENMT: tympanic membranes; No nl external ears & nose, No nl lips & teeth, No nl nasal mucosa & septum, No mucosa pink and moist, No intubated, No other Neck: supple, non-tender, jvd, bruits; No masses, No thyromegaly, No nuchal rigidity, No other Respiratory: clear to auscultation, normal air movement, crackles/rales, diminished breath sounds, respirations; No congested cough, No intercostal retraction, No labored breathing, No tactile fremitus, No wheezing, No other Cardiovascular: regular rate and rhythm, bruits, jugular venous distention (JVD), systolic murmur; No nl pulses, No diastolic murmur, No edema, No gallop, No irregular rhythm, No murmurs/extra sounds, No rub, No S3, No S4, No other Gastrointestinal: soft, non-tender, bowel sounds, distended, hepatomegaly, other (Obesity with thick fatty layer of the anterior abdominal wall with no rebound.); No nl liver, spleen, No ascites, No firm, No mass, No rebound or guarding, No splenomegaly, No surgical scars, No tender Genitourinary - Female: nl adnexae, nl external genitalia, CVA tenderness; No CMT, No uterus, No other Musculoskeletal: joint tenderness, muscle tone, muscle weakness, spine non-te nder (Severe tenderness of the intrascapular area lumbosacral area with great difficulty to get up to move. 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; No nl mental status, No nl speech, No nl strength, No confused, No DTR's symmetric, No focal weakness, No lethargic, No numbness, No reflexes, No unresponsive, No other Skin: nl turgor; No rash or lesions, No diaphoresis, No ecchymosis, No laceration, No punct ure, No other Lymph: No nl lymph nodes, No enlarged, No nontender, No other BREAST- LARGE L BREAST MASS Medications Medications Current Medications Anastrozole (Arimidex) 1 mg DAILY PO Last administered on 05/09/18 09:27; Admin Dose 1 MG; Start 04/25/18 at 19:00 Dexamethasone (Decadron) 4 mg Q8 IV Last administered on 05/09/18 05:39; Admin Dose 4 MG; Start 04/25/18 at 22:00 Zolpidem Tartrate (Ambien) 10 mg HS PRN PO INSOMNIA; Start 04/25/18 at 23:30 Lorazepam (Ativan) 0.5 mg TID PRN PO ANXIETY Last administered on 05/09/18 00:28; Admin Dose 0.5 MG; Start 04/25/18 at 23:30 Magnesium Hydroxide (Milk Of Mag) 30 ml DAILY PRN PO CONSTIPATION Last administered on 04/29/18 09:04; Admin Dose 30 ML; Start 04/27/18 at 21:00 Morphine Sulfate (morphine) 3 mg Q4H PRN IV SEVERE PAIN LEVEL 7-10 Last administered on 05/09/18 05:43; Admin Dose 3 MG; Start 04/27/18 at 21:00 Amlodipine Besylate (Norvasc) 5 mg BID PO Last administered on 05/09/18 09:28; Admin Dose 5 MG; Start 04/28/18 at 04:00 Polyethylene Glycol (Miralax) 17 gm BID PO Last administered on 05/09/18 09:28; Admin Dose 17 GM; Start 04/29/18 at 21:00 Docusate Sodium (Colace) 200 mg BID PO Last administered on 05/09/18 09:25; Admin Dose 200 MG; Start 04/29/18 at 21:00 Miscellaneous Information 1 ea NOTE XX ; Start 04/29/18 at 10:30 Glucose (Glutose) 15 gm Q15M PRN PO DECREASED GLUCOSE; Start 04/29/18 at 10:30 Glucose (Glutose) 22.5 gm Q15M PRN PO DECREASED GLUCOSE; Start 04/29/18 at 10:30 Dextrose (D50w Syringe) 25 ml Q15M PRN IV DECREASED GLUCOSE; Start 04/29/18 at 10:30 Dextrose (D50w Syringe) 50 ml Q15M PRN IV DECREASED GLUCOSE; Start 04/29/18 at 10:30 Glucagon (Glucagen) 1 mg Q15M PRN IM DECREASED GLUCOSE; Start 04/29/18 at 10:30 Glucose (Glutose) 15 gm Q15M PRN BUCCAL DECREASED GLUCOSE; Start 04/29/18 at 10:30 Benazepril HCl (Lotensin) 5 mg BID PO Last administered on 05/09/18at 09:28; Admin Dose 5 MG; Start 04/29/18 at 21:00 Insulin Aspart (Novolog Insulin Pen) NOVOLOG *MILD* ALGORI... Q6 SC Last administered on 05/09/18at 05:42; Admin Dose 2 UNIT; Start 05/01/18 at 12:00 Oxycodone HCl (Oxycontin) 20 mg BID PO Last administered on 05/09/18at 09:31; Admin Dose 20 MG; Start 05/01/18 at 21:00 Ciprofloxacin (Cipro) 500 mg BID@ PO Last administered on 05/09/18at 05:39; Admin Dose 500 MG; Start 05/05/18 at 14:45 Results Result Diagram: 05/05/18 0425 05/05/18 0425 Results 24 hrs Laboratory Tests Test 05/08/18 12:41 05/08/18 18:09 05/08/18 20:39 05/09/18 00:24 Bedside Glucose 126 173 238 H 250 H Test 05/09/18 05:40 Bedside Glucose 190 DES DUNAWAY MD May 09, 2018 10:49
--- NOTE | 2018-05-09 11:42 | PN ---
Date/Time of Note Date/Time of Note DATE: 05/09/18 TIME: 11:39 Assessment/Plan VTE Prophylaxis Risk score (from Nsg)>0 risk: 5 SCD applied (from Nsg): No SCD contraindicated: low risk/ambulating Pharmacological prophylaxis: LMWH Lines/Catheters IV Catheter Type (from Nrsg): Saline Lock Central line still needed: No Urinary Cath still in place: No Reason Cath still needed: urinary retention Assessment/Plan Assessment/Plan 1. Cancer of the left and left breast. Exact type at this time unknown.MULTIPLE BONY METS, PULMONARY METS 2. Severe pain in the interscapular and lumbar sacral area most probably metastatic lesion possible femoral fracture. pathologic fracture of T9 with 60% of loss of height. Neurosurgical consult planned. 3. Obesity. 4. Weight loss 60 pounds during the last 2 years by diet 5. PMS. 6. Myopia. 7. Anemia chronic disease. 8. Anxiety disorder. 9. Posttraumatic stress disorder. 10. Pain in the left forearm with a history of fracture of ulna and radius. 11. Tachycardia 12. Hypoxemia at night marginal improved after 2 L of nasal cannula oxygen. 13. Process at night. 14. 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 15.Pain syndrome. SEVERE T-L SPINE PAIN WITH DIFFICULTIES TO AMBULATE MRI T-L SPINE- Diffuse osseous metastatic disease of the visualized thoracic spine (T10 - T12), the entire lumbar spine, sacrum, and bilateral iliac bones. Expansion of the posterior T9 vertebral body resulting in central canal stenosis with AP diameter measuring 8 mm. CONT IV STEROIDS CONT AI; RADONC AND NEUROSURG F-UP BONE SCAN -Multiple skeletal metastases in the axial and appendicular skeleton PLAN- CONT XRT ; R FEMORAL LESION From the note of Dr Palomino: Because of the extensive and widespread metastatic lesion involving both vestibular part and proximal femoral part of the right hip and even if any surgical procedure is considered, she will need a special custom made acetabular part and proximal femoral part, which can be done in a [facility], probably by oncologic orthopedic surgeon. Even if surgery is considered and she needs to be transferred [facility] for the higher level of care including evaluation and care by oncology orthopedic surgeon, it is possible that because of the extensiveness of the metastatic lesions further surgical treatment may not be the recommended. Subjective 24 Hr Interval Summary Free Text/Dictation Weakness in pain. Subjective hx not possible: pt critical status Constitutional: requiring O2; No no complaints, No improved, No chills, No diaphoresis, No disoriented, No febrile, No poor po, No requiring IVF, No other Eyes: No no complaints, No pain, No discharge, No redness, No visual change, No other ENT: No no complaints, No bleeding, No pain, No congestion, No discharge, No dysphagia, No sore throat, No other Respiratory: cough, shortness of breath; No no complaints, No pain, No pleuritic pain, No sputum, No wheezing, No other Cardiovascular: chest pain, orthopenea, palpitations; No no complaints, No edema, No lightheadedness, No paroxysmal nocturnal dyspnea, No other Gastrointestinal: constipation, decreased appetite, passing stool; No no complaints, No pain, No blood, No diarrhea, No flatus, No nausea, No vomiting, No other Genitourinary: flank pain Musculoskeletal: back pain; No no complaints, No bone/joint pain, No neck pain, No restricted range of motion, No swelling, No other Neurologic: dizziness, headache; No no complaints, No confusion, No focal-weakness, No syncope, No seizure, No other Lymphatic: No no complaints, No adenopathy, No tender nodes, No lymphadema, No other Psychological: anxiety, depression; No no complaints, No nl mood/affect, No confusion, No suicidal, No other Exam/Review of Systems Vital Signs Vitals Vital Signs Date Temp Pulse Resp B/P (MAP) Pulse Ox O2 O2 Flow FiO2 Time Delivery Rate 05/09/18 98.6 72 18 125/78 95 07:31 (94) 05/08/18 Room Air 08:35 05/06/18 2.0 20:15 Intake and Output 05/08/18 05/08/18 05/09/18 1515:00 23:00 07:00 IntakeIntake Total 760 ml 360 ml BalanceBalance 760 ml 360 ml Exam Constitutional: alert, oriented, well developed, frail, obese Psych: anxiety, depression; No no complaints, No nl mood/affect, No confusion, No suicidal, No other Head: normocephalic, atraumatic; No lacerations, No hematomas, No other Eyes: EOMI, nl lids; No nl conjunctiva, No nl sclera, No PERRL, No icteric, No fundi, disc, No other ENMT: nl lips & teeth, nl nasal mucosa & septum; No nl external ears & nose, No mucosa pink and moist, No intubated, No tympanic membranes, No other Neck: jvd; No supple, No non-tender, No bruits, No masses, No thyromegaly, No nuchal rigidity, No other Respiratory: normal air movement, diminished breath sounds; No clear to auscultation, No congested cough, No crackles/rales, No intercostal retraction, No labored breathing, No respirations, No tactile fremitus, No wheezing, No other Cardiovascular: systolic murmur; No regular rate and rhythm, No nl pulses, No bruits, No diastolic murmur, No edema, No gallop, No irregular rhythm, No jugular venous distention (JVD), No murmurs/extra sounds, No rub, No S3, No S4, No other Gastrointestinal: soft, bowel sounds; No nl liver, spleen, No non-tender, No ascites, No distended, No firm, No hepatomegaly, No mass, No rebound or guarding, No splenomegaly, No surgical sc ars, No tender, No other Musculoskeletal: joint tenderness, muscle tone, muscle weakness, other (tender spine all along woth severe dectese of rom/) Medications Medications Current Medications Anastrozole (Arimidex) 1 mg DAILY PO Last administered on 05/09/18at 09:27; Admin Dose 1 MG; Start 04/25/18 at 19:00 Dexamethasone (Decadron) 4 mg Q8 IV Last administered on 05/09/18at 05:39; Admin Dose 4 MG; Start 04/25/18 at 22:00 Zolpidem Tartrate (Ambien) 10 mg HS PRN PO INSOMNIA; Start 04/25/18 at 23:30 Lorazepam (Ativan) 0.5 mg TID PRN PO ANXIETY Last administered on 05/09/18at 00:28; Admin Dose 0.5 MG; Start 04/25/18 at 23:30 Magnesium Hydroxide (Milk Of Mag) 30 ml DAILY PRN PO CONSTIPATION Last administered on 04/29/18at 09:04; Admin Dose 30 ML; Start 04/27/18 at 21:00 Morphine Sulfate (morphine) 3 mg Q4H PRN IV SEVERE PAIN LEVEL 7-10 Last administered on 05/09/18at 05:43; Admin Dose 3 MG; Start 04/27/18 at 21:00 Amlodipine Besylate (Norvasc) 5 mg BID PO Last administered on 05/09/18at 09:28; Admin Dose 5 MG; Start 04/28/18 at 04:00 Polyethylene Glycol (Miralax) 17 gm BID PO Last administered on 05/09/18at 09:28; Admin Dose 17 GM; Start 04/29/18 at 21:00 Docusate Sodium (Colace) 200 mg BID PO Last administered on 05/09/18at 09:25; Admin Dose 200 MG; Start 04/29/18 at 21:00 Miscellaneous Information 1 ea NOTE XX ; Start 04/29/18 at 10:30 Glucose (Glutose) 15 gm Q15M PRN PO DECREASED GLUCOSE; Start 04/29/18 at 10:30 Glucose (Glutose) 22.5 gm Q15M PRN PO DECREASED GLUCOSE; Start 04/29/18 at 10:30 Dextrose (D50w Syringe) 25 ml Q15M PRN IV DECREASED GLUCOSE; Start 04/29/18 at 10:30 Dextrose (D50w Syringe) 50 ml Q15M PRN IV DECREASED GLUCOSE; Start 04/29/18 at 10:30 Glucagon (Glucagen) 1 mg Q15M PRN IM DECREASED GLUCOSE; Start 04/29/18 at 10:30 Glucose (Glutose) 15 gm Q15M PRN BUCCAL DECREASED GLUCOSE; Start 04/29/18 at 10:30 Benazepril HCl (Lotensin) 5 mg BID PO Last administered on 05/09/18at 09:28; Admin Dose 5 MG; Start 04/29/18 at 21:00 Insulin Aspart (Novolog Insulin Pen) NOVOLOG *MILD* ALGORI... Q6 SC Last administered on 05/09/18at 05:42; Admin Dose 2 UNIT; Start 05/01/18 at 12:00 Oxycodone HCl (Oxycontin) 20 mg BID PO Last administered on 05/09/18at 09:31; Admin Dose 20 MG; Start 05/01/18 at 21:00 Ciprofloxacin (Cipro) 500 mg BID@ PO Last administered on 05/09/18at 05:39; Admin Dose 500 MG; Start 05/05/18 at 14:45 Results Result Diagram: 05/05/18 0425 05/05/18 0425 Results 24 hrs Laboratory Tests Test 05/08/18 12:41 05/08/18 18:09 05/08/18 20:39 05/09/18 00:24 Bedside Glucose 126 173 238 H 250 H Test 05/09/18 05:40 Bedside Glucose 190 RUSS JEROME MD May 09, 2018 11:42
[2018-05-09 14:23] VITALS: BP 116/74; PULSE 87; RESP 18
[2018-05-09 19:53] VITALS: BP 126/72; PULSE 95; RESP 18
[2018-05-10] MEDS: morphine 4 MG/ML VIAL IV PRN ×6 (00:06→21:37)
[2018-05-10 00:30] VITALS: BP 130/72; PULSE 85; RESP 16
[2018-05-10] MEDS: INSULIN ASPART [NOVOLOG] 3 ML PEN SC SCH ×4 (06:00→17:35)
[2018-05-10] MEDS: CIPROFLOXACIN 500 MG TAB PO SCH ×2 (06:16→17:26)
[2018-05-10] MEDS: DEXAMETHASONE 4 MG/ML 1 ML INJ IV SCH ×3 (06:16→21:37)
[2018-05-10 07:20] VITALS: BP 121/80; PULSE 70
[2018-05-10] MEDS: DOCUSATE SODIUM 100 MG CAP PO SCH ×2 (08:41→20:06)
[2018-05-10] MEDS: oxyCODONE (CR) 20 MG TAB [oxyCONTIN] PO SCH ×2 (08:41→20:06)
[2018-05-10] MEDS: AMLODIPINE 5 MG TAB PO SCH ×2 (08:41→20:06)
[2018-05-10] MEDS: BENAZEPRIL 5 MG TAB PO SCH ×2 (08:42→20:06)
[2018-05-10] MEDS: POLYETHYLENE GLYCOL 17 GM PACKET PO SCH ×2 (08:42→20:07)
[2018-05-10] MEDS: ANASTROZOLE 1 MG TAB PO SCH (08:42)
[2018-05-10 15:18] VITALS: BP 104/60; PULSE 79; RESP 18
--- NOTE | 2018-05-10 18:25 | PN ---
Date/Time of Note Date/Time of Note DATE: 05/10/18 TIME: 18:22 Assessment/Plan VTE Prophylaxis Risk score (from Nsg)>0 risk: 3 SCD applied (from Nsg): Yes SCD contraindicated: low risk/ambulating Pharmacological prophylaxis: LMWH Lines/Catheters IV Catheter Type (from Nrsg): Saline Lock Central line still needed: No Urinary Cath still in place: No Reason Cath still needed: urinary retention Assessment/Plan Assessment/Plan 1. Cancer of the left and left breast. Exact type at this time unknown.MULTIPLE BONY METS, PULMONARY METS 2. Severe pain in the interscapular and lumbar sacral area most probably metas tatic lesion possible femoral fracture. pathologic fracture of T9 with 60% of loss of height. Neurosurgical consult planned. 3. Obesity. 4. Weight loss 60 pounds during the last 2 years by diet 5. PMS. 6. Myopia. 7. Anemia chronic disease. 8. Anxiety disorder. 9. Posttraumatic stress disorder. 10. Pain in the left forearm with a history of fracture of ulna and radius. 11. Tachycardia 12. Hypoxemia at night marginal improved after 2 L of nasal cannula oxygen. 13. Process at night. 14. 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 15.Pain syndrome. Subjective 24 Hr Interval Summary Free Text/Dictation Chest pain is better controlled. Back pain is more strong. Due to the weekend radiation therapy was not done. Constitutional: improved, poor po; No no complaints, No chills, No diaphoresis, No disoriented, No febrile, No requiring IVF, No requiring O2, No other Eyes: No no complaints, No pain, No discharge, No redness, No visual change, No other ENT: No no complaints, No bleeding, No pain, No congestion, No discharge, No dysphagia, No sore throat, No other Respiratory: shortness of breath; No no complaints, No pain, No cough, No pleuritic pain, No sputum, No wheezing, No other Cardiovascular: chest pain; No no complaints, No edema, No lightheadedness, No orthopenea, No palpitations, No paroxysmal nocturnal dyspnea, No other Gastrointestinal: constipation, decreased appetite, nausea; No no complaints, No pain, No blood, No diarrhea, No flatus, No passing stool, No vomiting, No other Genitourinary: dysuria; No no complaints, No bleeding, No discharge, No flank pain, No hematuria, No other Musculoskeletal: back pain, bone/joint pain, neck pain; No no complaints, No restricted range of motion, No swelling, No other Skin: No no complaints, No bruising, No erythema, No laceration, No pruritis, No rash, No skin lesions, No other Neurologic: headache; No no complaints, No confusion, No dizziness, No focal-weakness, No syncope, No seizure, No other Exam/Review of Systems Vital Signs Vitals Vital Signs Date Temp Pulse Resp B/P (MAP) Pulse Ox O2 O2 Flow FiO2 Time Delivery Rate 05/10/18 98.2 79 18 104/60 97 Room Air 15:18 (75) 05/06/18 2.0 20:15 Intake and Output 05/09/18 05/09/18 05/10/18 1414:59 22:59 06:59 IntakeIntake Total 540 ml 200 ml OutputOutput Total 2 ml 1 ml BalanceBalance 538 ml 199 ml Exam Constitutional: alert, oriented, well developed, distress, frail Psych: anxiety, depression; No no complaints, No nl mood/affect, No confusion, No suicidal, No other Head: normocephalic, atraumatic Eyes: nl conjunctiva, nl lids, PERRL; No EOMI, No nl sclera, No icteric, No fundi, disc, No other ENMT: No nl external ears & nose, No nl lips & teeth, No nl nasal mucosa & septum, No mucosa pink and moist, No intubated, No tympanic membranes, No other Neck: bruits, nuchal rigidity; No supple, No non-tender, No jvd, No masses, No thyromegaly, No other Respiratory: clear to auscultation, normal air movement, diminished breath sounds; No congested cough, No crackles/rales, No intercostal retraction, No labored breathing, No respirations, No tactile fremitus, No wheezing, No other Cardiovascular: regular rate and rhythm, nl pulses, bruits, gallop, irregular rhythm, systolic murmur; No diastolic murmur, No edema, No jugular venous distention (JVD), No murmurs/extra sounds, No rub, No S3, No S4, No other Gastrointestinal: nl liver, spleen, bowel sounds, hepatomegaly; No soft, No non-tender, No ascites, No distended, No firm, No mass, No rebound or guarding, No splenomegaly, No surgical scars, No tender, No other Musculoskeletal: nl gait and stance, joint tenderness, muscle tone, muscle weakness; No nl extremities to inspection, No range of motion, No spine non-tender, No swelling, No other Extremities: normal pulses; No calf tenderness, No cyanosis, No clubbing, No edema, No pitting pedal edema, No palpable cord, No tenderness, No other 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: 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 Skin: nl turgor, ecchymosis; No rash or lesions, No diaphoresis, No laceration, No puncture, No other Medications Medications Current Medications Anastrozole (Arimidex) 1 mg DAILY PO Last administered on 05/10/18 08:42; Admin Dose 1 MG; Start 04/25/18 at 19:00 Dexamethasone (Decadron) 4 mg Q8 IV Last administered on 05/10/18 13:26; Admin Dose 4 MG; Start 04/25/18 at 22:00 Zolpidem Tartrate (Ambien) 10 mg HS PRN PO INSOMNIA; Start 04/25/18 at 23:30 Lorazepam (Ativan) 0.5 mg TID PRN PO ANXIETY Last administered on 05/09/18 00:28; Admin Dose 0.5 MG; Start 04/25/18 at 23:30 Magnesium Hydroxide (Milk Of Mag) 30 ml DAILY PRN PO CONSTIPATION Last administered on 04/29/18 09:04; Admin Dose 30 ML; Start 04/27/18 at 21:00 Morphine Sulfate (morphine) 3 mg Q4H PRN IV SEVERE PAIN LEVEL 7-10 Last administered on 05/10/18 17:29; Admin Dose 3 MG; Start 04/27/18 at 21:00 Amlodipine Besylate (Norvasc) 5 mg BID PO Last administered on 05/10/18 08:41; Admin Dose 5 MG; Start 04/28/18 at 04:00 Polyethylene Glycol (Miralax) 17 gm BID PO Last administered on 05/09/18 20:08; Admin Dose 17 GM; Start 04/29/18 at 21:00 Docusate Sodium (Colace) 200 mg BID PO Last administered on 05/10/18 08:41; Admin Dose 200 MG; Start 04/29/18 at 21:00 Miscellaneous Information 1 ea NOTE XX ; Start 04/29/18 at 10:30 Glucose (Glutose) 15 gm Q15M PRN PO DECREASED GLUCOSE; Start 04/29/18 at 10:30 Glucose (Glutose) 22.5 gm Q15M PRN PO DECREASED GLUCOSE; Start 04/29/18 at 10:30 Dextrose (D50w Syringe) 25 ml Q15M PRN IV DECREASED GLUCOSE; Start 04/29/18 at 10:30 Dextrose (D50w Syringe) 50 ml Q15M PRN IV DECREASED GLUCOSE; Start 04/29/18 at 10:30 Glucagon (Glucagen) 1 mg Q15M PRN IM DECREASED GLUCOSE; Start 04/29/18 at 10:30 Glucose (Glutose) 15 gm Q15M PRN BUCCAL DECREASED GLUCOSE; Start 04/29/18 at 10:30 Benazepril HCl (Lotensin) 5 mg BID PO Last administered on 05/10/18at 08:42; Admin Dose 5 MG; Start 04/29/18 at 21:00 Insulin Aspart (Novolog Insulin Pen) NOVOLOG *MILD* ALGORI... Q6 SC Last administered on 05/10/18at 17:35; Admin Dose 1 UNIT; Start 05/01/18 at 12:00 Oxycodone HCl (Oxycontin) 20 mg BID PO Last administered on 05/10/18at 08:41; Admin Dose 20 MG; Start 05/01/18 at 21:00 Ciprofloxacin (Cipro) 500 mg BID@,18 PO Last administered on 05/10/18at 17:26; Admin Dose 500 MG; Start 05/05/18 at 14:45 Results Results 24 hrs Laboratory Tests Test 05/09/18 23:14 05/10/18 05:05 05/10/18 12:22 05/10/18 17:27 Bedside Glucose 133 164 154 180 RUSS JEROME MD May 10, 2018 18:25
--- NOTE | 2018-05-10 18:43 | CONS ---
Date/Time of Note Date/Time of Note DATE: 05/10/18 TIME: 18:43 Assessment/Plan Assessment/Plan Chief Complaint/Hosp Course METASTATIC BREAST Cancer ( PRIMARY IS IN THE L BREAST ) with MULTIPLE BONY METS, PULMONARY METS SEVERE T-L SPINE PAIN WITH DIFFICULTIES TO AMBULATE MRI T-L SPINE- Diffuse osseous metastatic disease of the visualized thoracic spine (T10 - T12), the entire lumbar spine, sacrum, and bilateral iliac bones. Expansion of the posterior T9 vertebral body resulting in central canal stenosis with AP diameter measuring 8 mm. CONT IV STEROIDS CONT AI PAIN CONTROL RADONC AND NEUROSURG F-UP MRI C - SPINE AND R HIP BONE SCAN -Multiple skeletal metastases in the axial and appendicular skeleton PLAN- CONT XRT R FEMORAL LESION Because of the extensive and widespread metastatic lesion involving both vestibular part and proximal femoral part of the right hip and even if any surgical procedure is considered, she will need a special custom made acetabular part and proximal femoral part, which can be done in a [facility], probably by oncologic orthopedic surgeon. Even if surgery is considered and she needs to be transferred to a [facility] for the higher level of care including evaluation and care by oncology orthopedic surgeon, it is possible that because of the extensiveness of the metastatic lesions further surgical treatment may not be the recommended. PAIN CONT OXYCONTIN Obesity. Weight loss 60 pounds during the last 2 years by diet PMS. Myopia. Anemia chronic disease. Anxiety disorder. Posttraumatic stress disorder. Pain in the left forearm with a history of fracture of ulna and radius. 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 Consultation Date/Type/Reason Admit Date/Time Apr 25, 2018 at 14:37 Initial Consult Date 04/25/18 [facility] Requesting Provider: RUSS JEROME MD 24 HR Interval Summary Free Text/Dictation ALL NOTED D/W RN AND PT Exam/Review of Systems Vital Signs Vitals Vital Signs Date Temp Pulse Resp B/P (MAP) Pulse Ox O2 O2 Flow FiO2 Time Delivery Rate 05/10/18 98.2 79 18 104/60 97 Room Air 15:18 (75) 05/06/18 2.0 20:15 Intake and Output 05/09/18 05/09/18 05/10/18 1515:00 23:00 07:00 IntakeIntake Total 540 ml 200 ml OutputOutput Total 2 ml 1 ml BalanceBalance 538 ml 199 ml Exam Constitutional: alert, oriented, well developed, distress, frail; No non-verbal, No other Psych: anxiety, depression; No no complaints, No nl mood/affect, No confusion, No suicidal, No other Head: normocephalic, atraumatic; No lacerations, No hematomas, No other Eyes: EOMI, nl lids, PERRL; No nl conjunctiva, No nl sclera, No icteric, No fundi, disc, No other ENMT: tympanic membranes; No nl external ears & nose, No nl lips & teeth, No nl nasal mucosa & septum, No mucosa pink and moist, No intubated, No other Neck: supple, non-tender, jvd, bruits; No masses, No thyromegaly, No nuchal rigidity, No other Respiratory: clear to auscultation, normal air movement, crackles/rales, diminished breath sounds, respirations; No congested cough, No intercostal retraction, No labored breathing, No tactile fremitus, No wheezing, No other Cardiovascular: regular rate and rhythm, bruits, jugular venous distention (JVD), systolic murmur; No nl pulses, No diastolic murmur, No edema, No gallop, No irregular rhythm, No murmurs/extra sounds, No rub, No S3, No S4, No other Gastrointestinal: soft, non-tender, bowel sounds, distended, hepatomegaly, other (Obesity with thick fatty layer of the anterior abdominal wall with no rebound.); No nl liver, spleen, No ascites, No firm, No mass, No rebound or guarding, No splenomegaly, No surgical scars, No tender Genitourinary - Female: nl adnexae, nl external genitalia, CVA tenderness; No CMT, No uterus, No other Musculoskeletal: joint tenderness, muscle tone, muscle weakness, spine non- tender (Severe tenderness of the intrascapular area lumbosacral area with great difficulty to get up to move. 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; No nl mental status, No nl speech, No nl strength, No confused, No DTR's symmetric, No focal weakness, No lethargic, No numbness, No reflexes, No unresponsive, No other Skin: nl turgor; No rash or lesions, No diaphoresis, No ecchymosis, No laceration, No puncture, No other Lymph: No nl lymph nodes, No enlarged, No nontender, No other BREAST- LARGE L BREAST MASS Medications Medications Current Medications Anastrozole (Arimidex) 1 mg DAILY PO Last administered on 05/10/18 08:42; Admin Dose 1 MG; Start 04/25/18 at 19:00 Dexamethasone (Decadron) 4 mg Q8 IV Last administered on 05/10/18 13:26; Admin Dose 4 MG; Start 04/25/18 at 22:00 Zolpidem Tartrate (Ambien) 10 mg HS PRN PO INSOMNIA; Start 04/25/18 at 23:30 Lorazepam (Ativan) 0.5 mg TID PRN PO ANXIETY Last administered on 05/09/18 00:28; Admin Dose 0.5 MG; Start 04/25/18 at 23:30 Magnesium Hydroxide (Milk Of Mag) 30 ml DAILY PRN PO CONSTIPATION Last administered on 04/29/18 09:04; Admin Dose 30 ML; Start 04/27/18 at 21:00 Morphine Sulfate (morphine) 3 mg Q4H PRN IV SEVERE PAIN LEVEL 7-10 Last administered on 05/10/18 17:29; Admin Dose 3 MG; Start 04/27/18 at 21:00 Amlodipine Besylate (Norvasc) 5 mg BID PO Last administered on 05/10/18 08:41; Admin Dose 5 MG; Start 04/28/18 at 04:00 Polyethylene Glycol (Miralax) 17 gm BID PO Last administered on 05/09/18 20:08; Admin Dose 17 GM; Start 04/29/18 at 21:00 Docusate Sodium (Colace) 200 mg BID PO Last administered on 05/10/18 08:41; Admin Dose 200 MG; Start 04/29/18 at 21:00 Miscellaneous Information 1 ea NOTE XX ; Start 04/29/18 at 10:30 Glucose (Glutose) 15 gm Q15M PRN PO DECREASED GLUCOSE; Start 04/29/18 at 10:30 Glucose (Glutose) 22.5 gm Q15M PRN PO DECREASED GLUCOSE; Start 04/29/18 at 10:30 Dextrose (D50w Syringe) 25 ml Q15M PRN IV DECREASED GLUCOSE; Start 04/29/18 at 10:30 Dextrose (D50w Syringe) 50 ml Q15M PRN IV DECREASED GLUCOSE; Start 04/29/18 at 10:30 Glucagon (Glucagen) 1 mg Q15M PRN IM DECREASED GLUCOSE; Start 04/29/18 at 10:30 Glucose (Glutose) 15 gm Q15M PRN BUCCAL DECREASED GLUCOSE; Start 04/29/18 at 10:30 Benazepril HCl (Lotensin) 5 mg BID PO Last administered on 05/10/18at 08:42; Admin Dose 5 MG; Start 04/29/18 at 21:00 Insulin Aspart (Novolog Insulin Pen) NOVOLOG *MILD* ALGORI... Q6 SC Last administered on 05/10/18at 17:35; Admin Dose 1 UNIT; Start 05/01/18 at 12:00 Oxycodone HCl (Oxycontin) 20 mg BID PO Last administered on 05/10/18at 08:41; Admin Dose 20 MG; Start 05/01/18 at 21:00 Ciprofloxacin (Cipro) 500 mg BID@18 PO Last administered on 05/10/18at 17:26; Admin Dose 500 MG; Start 05/05/18 at 14:45 Results Results 24 hrs Laboratory Tests Test 05/09/18 23:14 05/10/18 05:05 05/10/18 12:22 05/10/18 17:27 Bedside Glucose 133 164 154 180 DES DUNAWAY MD May 10, 2018 18:43
[2018-05-10 19:27] VITALS: BP 102/65; PULSE 76; RESP 18
[2018-05-10] MEDS: LORAZEPAM 0.5 MG TAB PO PRN (21:37)
[2018-05-11] MEDS: INSULIN ASPART [NOVOLOG] 3 ML PEN SC SCH ×4 (00:17→17:45)
[2018-05-11] MEDS: morphine 4 MG/ML VIAL IV PRN ×4 (04:38→21:59)
[2018-05-11] MEDS: CIPROFLOXACIN 500 MG TAB PO SCH ×2 (05:45→17:42)
[2018-05-11] MEDS: DEXAMETHASONE 4 MG/ML 1 ML INJ IV SCH ×3 (05:46→21:58)
[2018-05-11 08:50] VITALS: BP 141/91; PULSE 99; RESP 18
[2018-05-11] MEDS: ANASTROZOLE 1 MG TAB PO SCH (08:54)
[2018-05-11] MEDS: DOCUSATE SODIUM 100 MG CAP PO SCH ×2 (08:54→20:11)
[2018-05-11] MEDS: BENAZEPRIL 5 MG TAB PO SCH ×2 (08:54→20:12)
[2018-05-11] MEDS: POLYETHYLENE GLYCOL 17 GM PACKET PO SCH ×2 (08:54→21:00)
[2018-05-11] MEDS: AMLODIPINE 5 MG TAB PO SCH ×2 (08:54→20:13)
[2018-05-11] MEDS: oxyCODONE (CR) 20 MG TAB [oxyCONTIN] PO SCH ×2 (08:55→20:11)
--- NOTE | 2018-05-11 09:03 | PN ---
Date/Time of Note Date/Time of Note DATE: 05/11/18 TIME: 08:59 Assessment/Plan VTE Prophylaxis Risk score (from Nsg)>0 risk: 4 SCD applied (from Ns): Yes SCD contraindicated: low risk/ambulating Pharmacological prophylaxis: LMWH Lines/Catheters IV Catheter Type (from Nrsg): [place] [employer] line still needed: No Urinary Cath still in place: No Reason Cath still needed: urinary retention Assessment/Plan Assessment/Plan 1. Cancer of the left and left breast. Exact type at this time unknown.MULTIPLE BONY METS, PULMONARY METS 2. Severe pain in the interscapular and lumbar sacral area most probably metas tatic lesion possible femoral fracture. pathologic fracture of T9 with 60% of loss of height. Neurosurgical consult planned. 3. Obesity. 4. Weight loss 60 pounds during the last 2 years by diet 5. PMS. 6. Myopia. 7. Anemia chronic disease. 8. Anxiety disorder. 9. Posttraumatic stress disorder. 10. Pain in the left forearm with a history of fracture of ulna and radius. 11. Tachycardia 12. Hypoxemia at night marginal improved after 2 L of nasal cannula oxygen. 13. Process at night. 14. 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 15.Pain syndrome. Subjective 24 Hr Interval Summary Free Text/Dictation I have very tight spine neck and back. It really squeezes me. I am using significant effort to overcome it which restricts my movements. Exhausted when I go to the toilet back. But I am trying to do it by myself although I feel it is risky. I discussed with the patient that when she is going to told her to call the staff before going to toilet. Denies fever and chills. Pain is adequately controlled. Very emotional about being lonely without family support. Subjective hx not possible: pt critical status Constitutional: poor po, requiring O2; No no complaints, No improved, No chills, No diaphoresis, No disoriented, No febrile, No requiring IVF, No other Eyes: No no complaints, No pain, No discharge, No redness, No visual change, No other ENT: No no complaints, No bleeding, No pain, No congestion, No discharge, No dysphagia, No sore throat, No other Respiratory: shortness of breath; No no complaints, No pain, No cough, No pleuritic pain, No sputum, No wheezing, No other Cardiovascular: chest pain, lightheadedness, orthopenea, palpitations; No no complaints, No edema, No paroxysmal nocturnal dyspnea, No other Gastrointestinal: pain, constipation, nausea, passing stool; No no complaints, No blood, No decreased appetite, No diarrhea, No flatus, No vomiting, No other Genitourinary: dysuria; No no complaints, No bleeding, No discharge, No flank pain, No hematuria, No other Musculoskeletal: back pain, bone/joint pain; No no complaints, No neck pain, No restricted range of motion, No swelling, No other Skin: rash; No no complaints, No bruising, No erythema, No laceration, No pruritis, No skin lesions, No other Neurologic: dizziness, headache; No no complaints, No confusion, No focal-weakness, No syncope, No seizure, No other Exam/Review of Systems Vital Signs Vitals Vital Signs Date Temp Pulse Resp B/P (MAP) Pulse Ox O2 O2 Flow FiO2 Time Delivery Rate 05/11/18 98.0 99 18 141/91 100 Room Air 08:50 (108) Intake and Output 05/10/18 05/10/18 05/11/18 1515:00 23:00 07:00 IntakeIntake Total 240 ml 450 ml 350 ml OutputOutput Total 201 ml 300 ml BalanceBalance 240 ml 249 ml 50 ml Exam Constitutional: alert, oriented, well developed, frail, obese Psych: anxiety, depression, other (In pain particularly when she is moving. Pain is tolerable when she is in horizontal position.); No no complaints, No nl mood/affect, No confusion, No suicidal Head: normocephalic, atraumatic; No lacerations, No hematomas, No other Eyes: No nl conjunctiva, No EOMI, No nl lids, No nl sclera, No PERRL, No icteric, No fundi, disc, No other ENMT: No nl external ears & nose, No nl lips & teeth, No nl nasal mucosa & septum, No mucosa pink and moist, No intubated, No tympanic membranes, No other Neck: supple, jvd, bruits, other (Tender neck bilaterally with muscular spasm. ); No non-tender, No masses, No thyromegaly, No nuchal rigidity Respiratory: clear to auscultation, diminished breath sounds; No normal air movement, No congested cough, No crackles/rales, No intercostal retraction, No labored breathing, No respirations, No tactile fremitus, No wheezing, No other Cardiovascular: regular rate and rhythm, bruits, systolic murmur; No nl pulses, No diastolic murmur, No edema, No gallop, No irregular rhythm, No jugular venous distention (JVD), No murmurs/extra sounds, No rub, No S3, No S4, No other Gastrointestinal: nl liver, spleen; No soft, No non-tender, No ascites, No bowel sounds, No distended, No firm, No hepatomegaly, No mass, No rebound or guarding, No splenomegaly, No surgical scars, No tender, No other Musculoskeletal: nl gait and stance, joint tenderness, muscle tone; No nl extremities to inspection, No muscle weakness, No range of motion, No spine non-tender, No swelling, No other Extremities: No normal pulses, No calf tenderness, No cyanosis, No clubbing, No edema, No pitting pedal edema, No palpable cord, No tenderness, No other 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: EDUCATION AND TRAINING COORDINATOR 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, nl speech, nl strength; No nl mental status, No confused, No DTR's symmetric, No focal weakness, No lethargic, No numbness, No reflexes, No unresponsive, No other Skin: No nl turgor, No rash or lesions, No diaphoresis, No ecchymosis, No laceration, No puncture, No other Medications Medications Current Medications Anastrozole (Arimidex) 1 mg DAILY PO Last administered on 05/11/18at 08:54; Admin Dose 1 MG; Start 04/25/18 at 19:00 Dexamethasone (Decadron) 4 mg Q8 IV Last administered on 05/11/18at 05:46; Admin Dose 4 MG; Start 04/25/18 at 22:00 Zolpidem Tartrate (Ambien) 10 mg HS PRN PO INSOMNIA; Start 04/25/18 at 23:30 Lorazepam (Ativan) 0.5 mg TID PRN PO ANXIETY Last administered on 05/10/18at 21:37; Admin Dose 0.5 MG; Start 04/25/18 at 23:30 Magnesium Hydroxide (Milk Of Mag) 30 ml DAILY PRN PO CONSTIPATION Last admini stered on 04/29/18at 09:04; Admin Dose 30 ML; Start 04/27/18 at 21:00 Morphine Sulfate (morphine) 3 mg Q4H PRN IV SEVERE PAIN LEVEL 7-10 Last administered on 05/11/18at 04:38; Admin Dose 3 MG; Start 04/27/18 at 21:00 Amlodipine Besylate (Norvasc) 5 mg BID PO Last administered on 05/11/18 08:54; Admin Dose 5 MG; Start 04/28/18 at 04:00 Polyethylene Glycol (Miralax) 17 gm BID PO Last administered on 05/11/18 08:54; Admin Dose 17 GM; Start 04/29/18 at 21:00 Docusate Sodium (Colace) 200 mg BID PO Last administered on 05/11/18 08:54; Admin Dose 200 MG; Start 04/29/18 at 21:00 Miscellaneous Information 1 ea NOTE XX ; Start 04/29/18 at 10:30 Glucose (Glutose) 15 gm Q15M PRN PO DECREASED GLUCOSE; Start 04/29/18 at 10:30 Glucose (Glutose) 22.5 gm Q15M PRN PO DECREASED GLUCOSE; Start 04/29/18 at 10:30 Dextrose (D50w Syringe) 25 ml Q15M PRN IV DECREASED GLUCOSE; Start 04/29/18 at 10:30 Dextrose (D50w Syringe) 50 ml Q15M PRN IV DECREASED GLUCOSE; Start 04/29/18 at 10:30 Glucagon (Glucagen) 1 mg Q15M PRN IM DECREASED GLUCOSE; Start 04/29/18 at 10:30 Glucose (Glutose) 15 gm Q15M PRN BUCCAL DECREASED GLUCOSE; Start 04/29/18 at 10:30 Benazepril HCl (Lotensin) 5 mg BID PO Last administered on 05/11/18at 08:54; Admin Dose 5 MG; Start 04/29/18 at 21:00 Insulin Aspart (Novolog Insulin Pen) NOVOLOG *MILD* ALGORI... Q6 SC Last administered on 05/11/18at 05:53; Admin Dose 1 UNIT; Start 05/01/18 at 12:00 Oxycodone HCl (Oxycontin) 20 mg BID PO Last administered on 05/11/18at 08:55; Admin Dose 20 MG; Start 05/01/18 at 21:00 Ciprofloxacin (Cipro) 500 mg BID@ PO Last administered on 05/11/18at 05:45; Admin Dose 500 MG; Start 05/05/18 at 14:45 Results Results 24 hrs Laboratory Tests Test 05/10/18 12:22 05/10/18 17:27 05/11/18 00:11 05/11/18 05:48 Bedside Glucose 154 180 175 157 RUSS JEROME MD May 11, 2018 09:03
--- NOTE | 2018-05-11 12:51 | CONS ---
Date/Time of Note Date/Time of Note DATE: 05/11/18 TIME: 12:50 Assessment/Plan Assessment/Plan Chief Complaint/Hosp Course METASTATIC BREAST Cancer ( PRIMARY IS IN THE L BREAST ) with MULTIPLE BONY METS, PULMONARY METS SEVERE T-L SPINE PAIN WITH DIFFICULTIES TO AMBULATE MRI T-L SPINE- Diffuse osseous metastatic disease of the visualized thoracic spine (T10 - T12), the entire lumbar spine, sacrum, and bilateral iliac bones. Expansion of the posterior T9 vertebral body resulting in central canal stenosis with AP diameter measuring 8 mm. CONT IV STEROIDS CONT AI PAIN CONTROL RADONC AND NEUROSURG F-UP MRI C - SPINE AND R HIP BONE SCAN -Multiple skeletal metastases in the axial and appendicular skeleton PLAN- CONT XRT R FEMORAL LESION Because of the extensive and widespread metastatic lesion involving both vestibular part and proximal femoral part of the right hip and even if any surgical procedure is considered, she will need a special custom made acetabular part and proximal femoral part, which [facility] be [facility], probably by oncologic orthopedic surgeon. Even if surgery is considered and she needs to be transferred to a [facility] for the higher level of care including evaluation and care by oncology orthopedic surgeon, it is possible that because of the extensiveness of the metastatic lesions further surgical treatment may not be the recommended. PAIN CONT OXYCONTIN Obesity. Weight loss 60 pounds during the last 2 years by diet PMS. Myopia. Anemia chronic disease. Anxiety disorder. Posttraumatic stress disorder. Pain in the left forearm with a history of fracture of ulna and radius. Tachycardia Incomplete data SOCIAL ISSUES CV RN AND SOCIAL SERVICE Consultation Date/Type/Reason Admit Date/Time Apr 25, 2018 at 14:37 Initial Consult Date 04/25/18 [facility] Requesting Provider: RUSS JEROME MD 24 HR Interval Summary Free Text/Dictation ALL NOTED D/W PT AND RN Exam/Review of Systems Vital Signs Vitals Vital Signs Date Temp Pulse Resp B/P (MAP) Pulse Ox O2 O2 Flow FiO2 Time Delivery Rate 05/11/18 98.0 99 18 141/91 100 Room Air 08:50 (108) Intake and Output 05/10/18 05/10/18 05/11/18 1515:00 23:00 07:00 IntakeIntake Total 240 ml 450 ml 350 ml OutputOutput Total 201 ml 300 ml BalanceBalance 240 ml 249 ml 50 ml Exam Constitutional: alert, oriented, well developed, distress, frail; No non-verbal, No other Psych: anxiety, depression; No no complaints, No nl mood/affect, No confusion, No suicidal, No other Head: normocephalic, atraumatic; No lacerations, No hematomas, No other Eyes: EOMI, nl lids, PERRL; No nl conjunctiva, No nl sclera, No icteric, No fundi, disc, No other ENMT: tympanic membranes; No nl external ears & nose, No nl lips & teeth, No nl nasal mucosa & septum, No mucosa pink and moist, No intubated, No other Neck: supple, non-tender, jvd, bruits; No masses, No thyromegaly, No nuchal rigidity, No other Respiratory: clear to auscultation, normal air movement, crackles/rales, diminished breath sounds, respirations; No congested cough, No intercostal retraction, No labored breathing, No tactile fremitus, No wheezing, No other Cardiovascular: regular rate and rhythm, bruits, jugular venous distention (JVD), systolic murmur; No nl pulses, No diastolic murmur, No edema, No gallop, No irregular rhythm, No murmurs/extra sounds, No rub, No S3, No S4, No other Gastrointestinal: soft, non-tender, bowel sounds, distended, hepatomegaly, other (Obesity with thick fatty layer of the anterior abdominal wall with no rebound.); No nl liver, spleen, No ascites, No firm, No mass, No rebound or guarding, No splenomegaly, No surgical scars, No tender Genitourinary - Female: nl adnexae, nl external genitalia, CVA tenderness; No CMT, No uterus, No other Musculoskeletal: joint tenderness, muscle tone, muscle weakness, spine non- tender (Severe tenderness of the intrascapular area lumbosacral area with great difficulty to get up to move. 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; No nl mental status, No nl speech, No nl strength, No confused, No DTR's symmetric, No focal weakness, No lethargic, No numbness, No reflexes, No unresponsive, No other Skin: nl turgor; No rash or lesions, No diaphoresis, No ecchymosis, No laceration, No punc ture, No other Lymph: No nl lymph nodes, No enlarged, No nontender, No other BREAST- LARGE L BREAST MASS Medications Medications Current Medications Anastrozole (Arimidex) 1 mg DAILY PO Last administered on 05/11/18 08:54; Admin Dose 1 MG; Start 04/25/18 at 19:00 Dexamethasone (Decadron) 4 mg Q8 IV Last administered on 05/11/18 05:46; Admin Dose 4 MG; Start 04/25/18 at 22:00 Zolpidem Tartrate (Ambien) 10 mg HS PRN PO INSOMNIA; Start 04/25/18 at 23:30 Lorazepam (Ativan) 0.5 mg TID PRN PO ANXIETY Last administered on 05/10/18at 21:37; Admin Dose 0.5 MG; Start 04/25/18 at 23:30 Magnesium Hydroxide (Milk Of Mag) 30 ml DAILY PRN PO CONSTIPATION Last administered on 04/29/18 09:04; Admin Dose 30 ML; Start 04/27/18 at 21:00 Morphine Sulfate (morphine) 3 mg Q4H PRN IV SEVERE PAIN LEVEL 7-10 Last adminis tered on 05/11/18 12:13; Admin Dose 3 MG; Start 04/27/18 at 21:00 Amlodipine Besylate (Norvasc) 5 mg BID PO Last administered on 05/11/18 08:54; Admin Dose 5 MG; Start 04/28/18 at 04:00 Polyethylene Glycol (Miralax) 17 gm BID PO Last administered on 05/11/18 08:54; Admin Dose 17 GM; Start 04/29/18 at 21:00 Docusate Sodium (Colace) 200 mg BID PO Last administered on 05/11/18 08:54; Admin Dose 200 MG; Start 04/29/18 at 21:00 Miscellaneous Information 1 ea NOTE XX ; Start 04/29/18 at 10:30 Glucose (Glutose) 15 gm Q15M PRN PO DECREASED GLUCOSE; Start 04/29/18 at 10:30 Glucose (Glutose) 22.5 gm Q15M PRN PO DECREASED GLUCOSE; Start 04/29/18 at 10:30 Dextrose (D50w Syringe) 25 ml Q15M PRN IV DECREASED GLUCOSE; Start 04/29/18 at 10:30 Dextrose (D50w Syringe) 50 ml Q15M PRN IV DECREASED GLUCOSE; Start 04/29/18 at 10:30 Glucagon (Glucagen) 1 mg Q15M PRN IM DECREASED GLUCOSE; Start 04/29/18 at 10:30 Glucose (Glutose) 15 gm Q15M PRN BUCCAL DECREASED GLUCOSE; Start 04/29/18 at 10:30 Benazepril HCl (Lotensin) 5 mg BID PO Last administered on 05/11/18at 08:54; Admin Dose 5 MG; Start 04/29/18 at 21:00 Insulin Aspart (Novolog Insulin Pen) NOVOLOG *MILD* ALGORI... Q6 SC Last administered on 05/11/18at 05:53; Admin Dose 1 UNIT; Start 05/01/18 at 12:00 Oxycodone HCl (Oxycontin) 20 mg BID PO Last administered on 05/11/18at 08:55; Admin Dose 20 MG; Start 05/01/18 at 21:00 Ciprofloxacin (Cipro) 500 mg BID@ PO Last administered on 05/11/18at 05:45; Admin Dose 500 MG; Start 05/05/18 at 14:45 Results Results 24 hrs Laboratory Tests Test 05/10/18 17:27 05/11/18 00:11 05/11/18 05:48 05/11/18 12:10 Bedside Glucose 180 175 157 108 DES DUNAWAY MD May 11, 2018 12:51
[2018-05-11 13:27] VITALS: BP 164/86; PULSE 80; RESP 18
--- NOTE | 2018-05-11 15:27 | CONS ---
Date/Time of Note Date/Time of Note DATE: 05/11/18 TIME: 15:25 Assessment/Plan Assessment/Plan Chief Complaint/Hosp Course Assessment: Hypertension - reasonable control Metastatic breast cancer - follow up oncology and radiation oncology, undergoing XRT Back pain - metastatic disease to the spine, pain control Recommendations: -continue benazepril 5mg BID -continue amlodipine 5mg BID Consultation Date/Type/Reason Admit Date/Time Apr 25, 2018 at 14:37 Initial Consult Date 04/26/18 Type of Consultation: Cardiology 24 HR Interval Summary Free Text/Dictation No acute events. Has been undergoing XRT. Evaluated by orthopedic surgery for pelvic and right hip metastases, no surgery planned. Detailed Summary Additional Comments 14 point review of systems without changes. Exam/Review of Systems Vital Signs Vitals Vital Signs Date Temp Pulse Resp B/P (MAP) Pulse Ox O2 O2 Flow FiO2 Time Delivery Rate 05/11/18 97.7 80 18 164/86 100 Room Air 13:27 (112) Intake and Output 05/10/18 05/10/18 05/11/18 1414:59 22:59 06:59 IntakeIntake Total 240 ml 450 ml 350 ml OutputOutput Total 201 ml 300 ml BalanceBalance 240 ml 249 ml 50 ml Exam Constitutional: alert, well developed Psych: no complaints, nl mood/affect Head: normocephalic, atraumatic Eyes: nl conjunctiva, nl lids ENMT: nl external ears & nose, nl nasal mucosa & septum Neck: supple, non-tender Respiratory: clear to auscultation, normal air movement Cardiovascular: regular rate and rhythm Gastrointestinal: soft, non-tender Musculoskeletal: nl extremities to inspection Extremities: No cyanosis, No clubbing, No edema 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: nl mental status, nl speech Medications Medications Current Medications Anastrozole (Arimidex) 1 mg DAILY PO Last administered on 05/11/18at 08:54; Admin Dose 1 MG; Start 04/25/18 at 19:00 Dexamethasone (Decadron) 4 mg Q8 IV Last administered on 05/11/18at 13:51; Admin Dose 4 MG; Start 04/25/18 at 22:00 Zolpidem Tartrate (Ambien) 10 mg HS PRN PO INSOMNIA; Start 04/25/18 at 23:30 Lorazepam (Ativan) 0.5 mg TID PRN PO ANXIETY Last administered on 05/10/18at 21:37; Admin Dose 0.5 MG; Start 04/25/18 at 23:30 Magnesium Hydroxide (Milk Of Mag) 30 ml DAILY PRN PO CONSTIPATION Last administered on 04/29/18at 09:04; Admin Dose 30 ML; Start 04/27/18 at 21:00 Morphine Sulfate (morphine) 3 mg Q4H PRN IV SEVERE PAIN LEVEL 7-10 Last administered on 05/11/18 12:13; Admin Dose 3 MG; Start 04/27/18 at 21:00 Amlodipine Besylate (Norvasc) 5 mg BID PO Last administered on 05/11/18 08:54; Admin Dose 5 MG; Start 04/28/18 at 04:00 Polyethylene Glycol (Miralax) 17 gm BID PO Last administered on 05/11/18 08:54; Admin Dose 17 GM; Start 04/29/18 at 21:00 Docusate Sodium (Colace) 200 mg BID PO Last administered on 05/11/18 08:54; Admin Dose 200 MG; Start 04/29/18 at 21:00 Miscellaneous Information 1 ea NOTE XX ; Start 04/29/18 at 10:30 Glucose (Glutose) 15 gm Q15M PRN PO DECREASED GLUCOSE; Start 04/29/18 at 10:30 Glucose (Glutose) 22.5 gm Q15M PRN PO DECREASED GLUCOSE; Start 04/29/18 at 10:30 Dextrose (D50w Syringe) 25 ml Q15M PRN IV DECREASED GLUCOSE; Start 04/29/18 at 10:30 Dextrose (D50w Syringe) 50 ml Q15M PRN IV DECREASED GLUCOSE; Start 04/29/18 at 10:30 Glucagon (Glucagen) 1 mg Q15M PRN IM DECREASED GLUCOSE; Start 04/29/18 at 10:30 Glucose (Glutose) 15 gm Q15M PRN BUCCAL DECREASED GLUCOSE; Start 04/29/18 at 10:30 Benazepril HCl (Lotensin) 5 mg BID PO Last administered on 05/11/18at 08:54; Admin Dose 5 MG; Start 04/29/18 at 21:00 Insulin Aspart (Novolog Insulin Pen) NOVOLOG *MILD* ALGORI... Q6 SC Last administered on 05/11/18at 05:53; Admin Dose 1 UNIT; Start 05/01/18 at 12:00 Oxycodone HCl (Oxycontin) 20 mg BID PO Last administered on 05/11/18at 08:55; Admin Dose 20 MG; Start 05/01/18 at 21:00 Ciprofloxacin (Cipro) 500 mg BID@,18 PO Last administered on 05/11/18at 05:45; Admin Dose 500 MG; Start 05/05/18 at 14:45 Results Results 24 hrs Laboratory Tests Test 05/10/18 17:27 05/11/18 00:11 05/11/18 05:48 05/11/18 12:10 Bedside Glucose 180 175 157 108 NEGRITA GARLAND MD May 11, 2018 15:27
[2018-05-11 20:54] VITALS: BP 130/71; PULSE 75; RESP 20
[2018-05-11] MEDS: LORAZEPAM 0.5 MG TAB PO PRN (21:58)
[2018-05-12] MEDS: INSULIN ASPART [NOVOLOG] 3 ML PEN SC SCH ×5 (00:48→22:32)
[2018-05-12] MEDS: morphine 4 MG/ML VIAL IV PRN ×6 (01:48→22:31)
[2018-05-12] MEDS: CIPROFLOXACIN 500 MG TAB PO SCH ×2 (05:40→17:48)
[2018-05-12] MEDS: DEXAMETHASONE 4 MG/ML 1 ML INJ IV SCH ×3 (05:40→22:30)
[2018-05-12 07:38] VITALS: BP 122/78; PULSE 72; RESP 16
[2018-05-12] MEDS: DOCUSATE SODIUM 100 MG CAP PO SCH ×2 (09:29→20:30)
[2018-05-12] MEDS: oxyCODONE (CR) 20 MG TAB [oxyCONTIN] PO SCH ×2 (09:30→20:31)
[2018-05-12] MEDS: ANASTROZOLE 1 MG TAB PO SCH (09:30)
[2018-05-12] MEDS: POLYETHYLENE GLYCOL 17 GM PACKET PO SCH ×2 (09:31→20:32)
[2018-05-12] MEDS: BENAZEPRIL 5 MG TAB PO SCH ×2 (09:31→20:31)
[2018-05-12] MEDS: AMLODIPINE 5 MG TAB PO SCH ×2 (09:31→20:31)
--- NOTE | 2018-05-12 12:49 | CONS ---
Date/Time of Note Date/Time of Note DATE: 05/12/18 TIME: 12:49 Assessment/Plan Assessment/Plan Chief Complaint/Hosp Course METASTATIC BREAST Cancer ( PRIMARY IS IN THE L BREAST ) with MULTIPLE BONY METS, PULMONARY METS SEVERE T-L SPINE PAIN WITH DIFFICULTIES TO AMBULATE MRI T-L SPINE- Diffuse osseous metastatic disease of the visualized thoracic spine (T10 - T12), the entire lumbar spine, sacrum, and bilateral iliac bones. Expansion of the posterior T9 vertebral body resulting in central canal stenosis with AP diameter measuring 8 mm. CONT IV STEROIDS CONT AI PAIN CONTROL RADONC AND NEUROSURG F-UP MRI C - SPINE AND R HIP BONE SCAN -Multiple skeletal metastases in the axial and appendicular skeleton PLAN- CONT XRT R FEMORAL LESION Because of the extensive and widespread metastatic lesion involving both vestibular part and proximal femoral part of the right hip and even if any surgical procedure is considered, she will need a special custom made acetabular part and proximal femoral part, which can be done in a [facility], probably by oncologic orthopedic surgeon. Even if surgery is considered and she needs to be transferred to a [facility] the [facility] level of care including evaluation and care by oncology orthopedic surgeon, it is possible that because of the extensiveness of the metastatic lesions further surgical treatment may not be the recommended. PAIN CONT OXYCONTIN Obesity. Weight loss 60 pounds during the last 2 years by diet PMS. Myopia. Anemia chronic disease. Anxiety disorder. Posttraumatic stress disorder. Pain in the left forearm with a history of fracture of ulna and radius. Tachycardia Incomplete data SOCIAL ISSUES [employer] Consultation Date/Type/Reason Admit Date/Time Apr 25, 2018 at 14:37 Initial Consult Date 04/25/18 Type of Consultation: hemeonc 24 HR Interval Summary Free Text/Dictation ALL NOTED NAD + PAIN Exam/Review of Systems Vital Signs Vitals Vital Signs Date Temp Pulse Resp B/P (MAP) Pulse Ox O2 O2 Flow FiO2 Time Delivery Rate 05/12/18 98.3 72 16 122/78 96 Room Air 07:38 (93) Intake and Output 05/11/18 05/11/18 05/12/18 1515:00 23:00 07:00 IntakeIntake Total 800 ml BalanceBalance 800 ml Exam Constitutional: alert, oriented, well developed, distress, frail; No non-verbal, No other Psych: anxiety, depression; No no complaints, No nl mood/affect, No confusion, No suicidal, No other Head: normocephalic, atraumatic; No lacerations, No hematomas, No other Eyes: EOMI, nl lids, PERRL; No nl conjunctiva, No nl sclera, No icteric, No fundi, disc, No other ENMT: tympanic membranes; No nl external ears & nose, No nl lips & teeth, No nl nasal mucosa & septum, No mucosa pink and moist, No intubated, No other Neck: supple, non-tender, jvd, bruits; No masses, No thyromegaly, No nuchal rigidity, No other Respiratory: clear to auscultation, normal air movement, crackles/rales, diminished breath sounds, respirations; No congested cough, No intercostal retraction, No labored breathing, No tactile fremitus, No wheezing, No other Cardiovascular: regular rate and rhythm, bruits, jugular venous distention (JVD), systolic murmur; No nl pulses, No diastolic murmur, No edema, No gallop, No irregular rhythm, No murmurs/extra sounds, No rub, No S3, No S4, No other Gastrointestinal: soft, non-tender, bowel sounds, distended, hepatomegaly, other (Obesity with thick fatty layer of the anterior abdominal wall with no rebound.); No nl liver, spleen, No ascites, No firm, No mass, No rebound or guarding, No splenomegaly, No surgical scars, No tender Genitourinary - Female: nl adnexae, nl external genitalia, CVA tenderness; No CMT, No uterus, No other Musculoskeletal: joint tenderness, muscle tone, muscle weakness, spine non- tender (Severe tenderness of the intrascapular area lumbosacral area with great difficulty to get up to move. 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; No nl mental status, No nl speech, No nl strength, No confused, No DTR's symmetric, No focal weakness, No lethargic, No numbness, No reflexes, No unresponsive, No other Skin: nl turgor; No rash or lesions, No diaphoresis, No ecchymosis, No laceration, No puncture, No other Lymph: No nl lymph nodes, No enlarged, No nontender, No other BREAST- LARGE L BREAST MASS Medications Medications Current Medications Anastrozole (Arimidex) 1 mg DAILY PO Last administered on 05/12/18 09:30; Admin Dose 1 MG; Start 04/25/18 at 19:00 Dexamethasone (Decadron) 4 mg Q8 IV Last administered on 05/12/18 05:40; Admin Dose 4 MG; Start 04/25/18 at 22:00 Zolpidem Tartrate (Ambien) 10 mg HS PRN PO INSOMNIA; Start 04/25/18 at 23:30 Lorazepam (Ativan) 0.5 mg TID PRN PO ANXIETY Last administered on 05/11/18 21 :58; Admin Dose 0.5 MG; Start 04/25/18 at 23:30 Magnesium Hydroxide (Milk Of Mag) 30 ml DAILY PRN PO CONSTIPATION Last administered on 04/29/18 09:04; Admin Dose 30 ML; Start 04/27/18 at 21:00 Morphine Sulfate (morphine) 3 mg Q4H PRN IV SEVERE PAIN LEVEL 7-10 Last administered on 05/12/18 09:29; Admin Dose 3 MG; Start 04/27/18 at 21:00 Amlodipine Besylate (Norvasc) 5 mg BID PO Last administered on 05/12/18 09:31; Admin Dose 5 MG; Start 04/28/18 at 04:00 Polyethylene Glycol (Miralax) 17 gm BID PO Last administered on 05/12/18 09:31; Admin Dose 17 GM; Start 04/29/18 at 21:00 Docusate Sodium (Colace) 200 mg BID PO Last administered on 05/12/18 09:29; Admin Dose 200 MG; Start 04/29/18 at 21:00 Miscellaneous Information 1 ea NOTE XX ; Start 04/29/18 at 10:30 Glucose (Glutose) 15 gm Q15M PRN PO DECREASED GLUCOSE; Start 04/29/18 at 10:30 Glucose (Glutose) 22.5 gm Q15M PRN PO DECREASED GLUCOSE; Start 04/29/18 at 10:30 Dextrose (D50w Syringe) 25 ml Q15M PRN IV DECREASED GLUCOSE; Start 04/29/18 at 10:30 Dextrose (D50w Syringe) 50 ml Q15M PRN IV DECREASED GLUCOSE; Start 04/29/18 at 10:30 Glucagon (Glucagen) 1 mg Q15M PRN IM DECREASED GLUCOSE; Start 04/29/18 at 1 0:30 Glucose (Glutose) 15 gm Q15M PRN BUCCAL DECREASED GLUCOSE; Start 04/29/18 at 10:30 Benazepril HCl (Lotensin) 5 mg BID PO Last administered on 05/12/18at 09:31; Admin Dose 5 MG; Start 04/29/18 at 21:00 Insulin Aspart (Novolog Insulin Pen) NOVOLOG *MILD* ALGORI... Q6 SC Last administered on 05/12/18at 00:48; Admin Dose 1 UNIT; Start 05/01/18 at 12:00 Oxycodone HCl (Oxycontin) 20 mg BID PO Last administered on 05/12/18at 09:30; Admin Dose 20 MG; Start 05/01/18 at 21:00 Ciprofloxacin (Cipro) 500 mg BID@ PO Last administered on 05/12/18at 05:40; Admin Dose 500 MG; Start 05/05/18 at 14:45 Results Result Diagram: 05/12/18 0437 05/12/18 0437 Results 24 hrs Laboratory Tests Test 05/11/18 17:40 05/12/18 00:43 05/12/18 04:37 05/12/18 05:38 Bedside Glucose 172 159 134 White Blood 6.9 # Count Red Blood Count 3.80 L Hemoglobin 11.8 L Hematocrit 36.6 L Mean Corpuscular 96.3 Volume Mean Corpuscular 31.1 Hemoglobin Mean Corpuscular 32.2 Hemoglobin Karen nt Red Cell 13.7 Distribution Width Platelet Count 407 Mean Platelet 9.3 Volume Immature 1.000 H Granulocytes % Neutrophils % 84.5 H Lymphocytes % 6.5 L Monocytes % 7.8 Eosinophils % 0.1 Basophils % 0.1 Nucleated Red 0.0 Blood Cells % Immature 0.070 H Granulocytes # Neutrophils # 5.8 Lymphocytes # 0.5 L Monocytes # 0.5 Eosinophils # 0.0 Basophils # 0.0 Nucleated Red 0.0 Blood Cells # Sodium Level 138 Potassium Level 4.8 Chloride Level 103 Carbon Dioxide 27 Level Anion Gap 8 Blood Urea 24 H Nitrogen Creatinine 0.49 Est Glomerular > 60 Filtrat Rate mL/min Glucose Level 165 Calcium Level 7.9 L Magnesium Level 2.2 Total Bilirubin 0.3 Direct Bilirubin 0.00 Indirect 0.3 Bilirubin Aspartate Amino 26 Transf (AST/SGOT ) Alanine 32 Aminotransferase (ALT/SGPT) Alkaline 348 H Phosphatase Total Protein 6.0 L Albumin 3.0 L Globulin 3.00 Albumin/Globulin 1.00 Ratio Vitamin D 27.5 L 1,25-Dihydroxy Test 05/12/18 12:33 Bedside Glucose 102 DES DUNAWAY MD May 12, 2018 12:49
--- NOTE | 2018-05-12 13:38 | PN ---
Date/Time of Note Date/Time of Note DATE: 05/12/18 TIME: 13:34 Assessment/Plan VTE Prophylaxis Risk score (from Nsg)>0 risk: 5 SCD applied (from Ns): Yes SCD contraindicated: low risk/ambulating Pharmacological prophylaxis: other (No need.) Pharm contraindication: low risk/ambulating Lines/Catheters IV Catheter Type (from Rust): Saline Lock Central line still needed: No Urinary Cath still in place: No Reason Cath still needed: urinary retention Assessment/Plan Assessment/Plan 1. Cancer of the left and left breast. Exact type at this time unknown.MULTIPLE BONY METS, PULMONARY METS 2. Severe pain in the interscapular and lumbar sacral area most probably metastatic lesion possible femoral fracture. pathologic fracture of T9 with 60% of loss of height. Neurosurgical consult planned. 3. Obesity. 4. Weight loss 60 pounds during the last 2 years by diet 5. PMS. 6. Myopia. 7. Anemia chronic disease. 8. Anxiety disorder. 9. Posttraumatic stress disorder. 10. Pain in the left forearm with a history of fracture of ulna and radius. 11. Tachycardia 12. Hypoxemia at night marginal improved after 2 L of nasal cannula oxygen. 13. Process at night. 14. 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 15.Pain syndrome. Subjective 24 Hr Interval Summary Free Text/Dictation Pain in the left hip are decreased in intensity. I was able to get up and walk. I am getting tired very easily. No fever& chills. No nausea vomiting Constitutional: improved, poor po; No no complaints, No chills, No diaphoresis, No disoriented, No febrile, No requiring IVF, No requiring O2, No other Eyes: No no complaints, No pain, No discharge, No redness, No visual change, No other ENT: No no complaints, No bleeding, No pain, No congestion, No discharge, No dysphagia, No sore throat, No other Respiratory: cough, shortness of breath; No no complaints, No pain, No pleuritic pain, No sputum, No wheezing, No other Cardiovascular: chest pain, lightheadedness, orthopenea, palpitations; No no complaints, No edema, No paroxysmal nocturnal dyspnea, No other Gastrointestinal: constipation, decreased appetite, flatus, nausea, passing stool; No no complaints, No pain, No blood, No diarrhea, No vomiting, No other Genitourinary: dysuria; No no complaints, No bleeding, No discharge, No flank pain, No hematuria, No other Musculoskeletal: back pain, bone/joint pain, neck pain; No no complaints, No restricted range of motion, No swelling, No other Skin: No no complaints, No bruising, No erythema, No laceration, No pruritis, No rash, No skin lesions, No other Neurologic: No no complaints, No confusion, No dizziness, No focal-weakness, No headache, No syncope, No seizure, No other Lymphatic: No no complaints, No adenopathy, No tender nodes, No lymphadema, No other Psychological: anxiety, depression; No no complaints, No nl mood/affect, No confusion, No suicidal, No other Exam/Review of Systems Vital Signs Vitals Vital Signs Date Temp Pulse Resp B/P (MAP) Pulse Ox O2 O2 Flow FiO2 Time Delivery Rate 05/12/18 98.3 72 16 122/78 96 Room Air 07:38 (93) Intake and Output 05/11/18 05/11/18 05/12/18 1515:00 23:00 07:00 IntakeIntake Total 800 ml BalanceBalance 800 ml Exam Constitutional: alert, oriented, well developed, distress, frail, obese Psych: anxiety, depression; No no complaints, No nl mood/affect, No confusion, No suicidal, No other Head: normocephalic, atraumatic Eyes: nl conjunctiva, EOMI, nl lids, PERRL; No nl sclera, No icteric, No fundi, disc, No other ENMT: nl lips & teeth; No nl external ears & nose, No nl nasal mucosa & septum, No mucosa pink and moist, No intubated, No tympanic membranes, No other Neck: non-tender, bruits, nuchal rigidity; No supple, No jvd, No masses, No thyromegaly, No other Respiratory: normal air movement, crackles/rales, diminished breath sounds; No clear to auscultation, No congested cough, No intercostal retraction, No labored breathing, No respirations, No tactile fremitus, No wheezing, No other Cardiovascular: nl pulses, bruits, systolic murmur; No regular rate and rhythm, No diastolic murmur, No edema, No gallop, No irregular rhythm, No jugular venous distention (JVD), No murmurs/extra sounds, No rub, No S3, No S4, No other Gastrointestinal: soft, nl liver, spleen, ascites, distended; No non-tender, No bowel sounds, No firm, No hepatomegaly, No mass, No rebound or guarding, No splenomegaly, No surgical scars, No tender, No other Genitourinary - Female: No nl adnexae, No nl external genitalia, No CMT, No CVA tenderness, No uterus, No other Musculoskeletal: nl gait and stance (Gait is changed due to of back pain and bilateral hip pain.), joint tenderness; No nl extremities to inspection, No muscle tone, No muscle weakness, No range of motion, No spine non-tender, No swelling, No other Extremities: normal pulses; No calf tenderness, No cyanosis, No clubbing, No edema, No pitting pedal edema, No palpable cord, No tenderness, No other 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 Skin: nl turgor; No rash or lesions, No diaphoresis, No ecchymosis, No laceration, No puncture, No other Lymph: No nl lymph nodes, No enlarged, No nontender, No other Medications Medications Current Medications Anastrozole (Arimidex) 1 mg DAILY PO Last administered on 05/12/18at 09:30; Admin Dose 1 MG; Start 04/25/18 at 19:00 Dexamethasone (Decadron) 4 mg Q8 IV Last administered on 05/12/18at 05:40; Admin Dose 4 MG; Start 04/25/18 at 22:00 Zolpidem Tartrate (Ambien) 10 mg HS PRN PO INSOMNIA; Start 04/25/18 at 23:30 Lorazepam (Ativan) 0.5 mg TID PRN PO ANXIETY Last administered on 05/11/18at 21:58; Admin Dose 0.5 MG; Start 04/25/18 at 23:30 Magnesium Hydroxide (Milk Of Mag) 30 ml DAILY PRN PO CONSTIPATION Last administered on 04/29/18at 09:04; Admin Dose 30 ML; Start 04/27/18 at 21:00 Morphine Sulfate (morphine) 3 mg Q4H PRN IV SEVERE PAIN LEVEL 7-10 Last administered on 05/12/18at 09:29; Admin Dose 3 MG; Start 04/27/18 at 21:00 Amlodipine Besylate (Norvasc) 5 mg BID PO Last administered on 05/12/18at 09:31; Admin Dose 5 MG; Start 04/28/18 at 04:00 Polyethylene Glycol (Miralax) 17 gm BID PO Last administered on 05/12/18at 09:31; Admin Dose 17 GM; Start 04/29/18 at 21:00 Docusate Sodium (Colace) 200 mg BID PO Last administered on 05/12/18at 09:29; Admin Dose 200 MG; Start 04/29/18 at 21:00 Miscellaneous Information 1 ea NOTE XX ; Start 04/29/18 at 10:30 Glucose (Glutose) 15 gm Q15M PRN PO DECREASED GLUCOSE; Start 04/29/18 at 10:30 Glucose (Glutose) 22.5 gm Q15M PRN PO DECREASED GLUCOSE; Start 04/29/18 at 10:30 Dextrose (D50w Syringe) 25 ml Q15M PRN IV DECREASED GLUCOSE; Start 04/29/18 at 10:30 Dextrose (D50w Syringe) 50 ml Q15M PRN IV DECREASED GLUCOSE; Start 04/29/18 at 10:30 Glucagon (Glucagen) 1 mg Q15M PRN IM DECREASED GLUCOSE; Start 04/29/18 at 10:30 Glucose (Glutose) 15 gm Q15M PRN BUCCAL DECREASED GLUCOSE; Start 04/29/18 at 10:30 Benazepril HCl (Lotensin) 5 mg BID PO Last administered on 05/12/18at 09:31; Admin Dose 5 MG; Start 04/29/18 at 21:00 Insulin Aspart (Novolog Insulin Pen) NOVOLOG *MILD* ALGORI... Q6 SC Last administered on 05/12/18at 00:48; Admin Dose 1 UNIT; Start 05/01/18 at 12:00 Oxycodone HCl (Oxycontin) 20 mg BID PO Last administered on 05/12/18at 09:30; Admin Dose 20 MG; Start 05/01/18 at 21:00 Ciprofloxacin (Cipro) 500 mg BID@ PO Last administered on 05/12/18at 05:40; Admin Dose 500 MG; Start 05/05/18 at 14:45 Results Result Diagram: 05/12/18 0437 05/12/18 0437 Results 24 hrs Laboratory Tests Test 05/11/18 17:40 05/12/18 00:43 05/12/18 04:37 05/12/18 05:38 Bedside Glucose 172 159 134 White Blood 6.9 # Count Red Blood Count 3.80 L Hemoglobin 11.8 L Hematocrit 36.6 L Mean Corpuscular 96.3 Volume Mean Corpuscular 31.1 Hemoglobin Mean Corpuscular 32.2 Hemoglobin Karen nt Red Cell 13.7 Distribution Width Platelet Count 407 Mean Platelet 9.3 Volume Immature 1.000 H Granulocytes % Neutrophils % 84.5 H Lymphocytes % 6.5 L Monocytes % 7.8 Eosinophils % 0.1 Basophils % 0.1 Nucleated Red 0.0 Blood Cells % Immature 0.070 H Granulocytes # Neutrophils # 5.8 Lymphocytes # 0.5 L Monocytes # 0.5 Eosinophils # 0.0 Basophils # 0.0 Nucleated Red 0.0 Blood Cells # Sodium Level 138 Potassium Level 4.8 Chloride Level 103 Carbon Dioxide 27 Level Anion Gap 8 Blood Urea 24 H Nitrogen Creatinine 0.49 Est Glomerular > 60 Filtrat Rate mL/min Glucose Level 165 Calcium Level 7.9 L Magnesium Level 2.2 Total Bilirubin 0.3 Direct Bilirubin 0.00 Indirect 0.3 Bilirubin Aspartate Amino 26 Transf (AST/SGOT ) Alanine 32 Aminotransferase (ALT/SGPT) Alkaline 348 H Phosphatase Total Protein 6.0 L Albumin 3.0 L Globulin 3.00 Albumin/Globulin 1.00 Ratio Vitamin D 27.5 L 1,25-Dihydroxy Test 05/12/18 12:33 Bedside Glucose 102 RUSS JEROME MD May 12, 2018 13:38
[2018-05-12 14:31] VITALS: BP 116/57; PULSE 76; RESP 17
[2018-05-12 20:36] VITALS: BP 138/79; PULSE 87; RESP 18
[2018-05-12] MEDS: LORAZEPAM 0.5 MG TAB PO PRN (22:31)
[2018-05-13] MEDS: morphine 4 MG/ML VIAL IV PRN ×5 (03:36→22:44)
[2018-05-13] MEDS: DEXAMETHASONE 4 MG/ML 1 ML INJ IV SCH ×3 (05:51→22:42)
[2018-05-13] MEDS: CIPROFLOXACIN 500 MG TAB PO SCH (05:51)
[2018-05-13] MEDS: INSULIN ASPART [NOVOLOG] 3 ML PEN SC SCH ×3 (06:00→18:00)
[2018-05-13] MEDS: LORAZEPAM 0.5 MG TAB PO PRN (07:10)
[2018-05-13] MEDS: POLYETHYLENE GLYCOL 17 GM PACKET PO SCH ×2 (09:00→21:00)
[2018-05-13] MEDS: DOCUSATE SODIUM 100 MG CAP PO SCH ×2 (09:54→21:10)
[2018-05-13] MEDS: ANASTROZOLE 1 MG TAB PO SCH (09:55)
[2018-05-13] MEDS: BENAZEPRIL 5 MG TAB PO SCH ×2 (09:55→21:11)
[2018-05-13] MEDS: AMLODIPINE 5 MG TAB PO SCH ×2 (09:55→21:10)
[2018-05-13] MEDS: oxyCODONE (CR) 20 MG TAB [oxyCONTIN] PO SCH ×2 (10:02→21:10)
--- NOTE | 2018-05-13 14:02 | CONS ---
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 Expansion of the posterior T9 vertebral body resulting in central canal stenosis with AP diameter measuring 8 mm. CONT IV STEROIDS CONT AI PAIN CONTROL RADONC AND NEUROSURG F-UP MRI C - SPINE AND R HIP BONE SCAN -Multiple skeletal metastases in the axial and appendicular skeleton PLAN- CONT XRT R FEMORAL LESION Because of the extensive and widespread metastatic lesion involving both vestibular part and proximal femoral part of the right hip and even if any surgical procedure is considered, she will need a special custom made acetabular part and proximal femoral part, which can be done in a [facility], probably by oncologic orthopedic surgeon. Even if surgery is considered and she needs to be transferred to a [facility] for the [facility] level of care including evaluation and care by oncology orthopedic surgeon, it is possible that because of the extensiveness of the metastatic lesions further surgical treatment may not be the recommended. PAIN CONT OXYCONTIN Obesity. Weight loss 60 pounds during the last 2 years by diet PMS. Myopia. Anemia chronic disease. Anxiety disorder. Posttraumatic stress disorder. Pain in the left forearm with a history of fracture of ulna and radius. Tachycardia Incomplete data SOCIAL ISSUES [employer] Consultation Date/Type/Reason Admit Date/Time Apr 25, 2018 at 14:37 Initial Consult Date 04/25/18 Type of Consultation: hemeonc 24 HR Interval Summary Free Text/Dictation NAD + PAIN- BETTER Exam/Review of Systems Vital Signs Vitals Vital Signs Date Temp Pulse Resp B/P (MAP) Pulse Ox O2 O2 Flow FiO2 Time Delivery Rate 05/12/18 97.7 87 18 138/79 98 Room Air 20:36 (98) Intake and Output 05/12/18 05/12/18 05/13/18 1515:00 23:00 07:00 IntakeIntake Total 300 ml 300 ml 400 ml OutputOutput Total 400 ml 300 ml BalanceBalance -100 ml 0 ml 400 ml Exam Constitutional: alert, oriented, well developed, distress, frail; No non-verbal, No other Psych: anxiety, depression; No no complaints, No nl mood/affect, No confusion, No suicidal, No other Head: normocephalic, atraumatic; No lacerations, No hematomas, No other Eyes: EOMI, nl lids, PERRL; No nl conjunctiva, No nl sclera, No icteric, No fundi, disc, No other ENMT: tympanic membranes; No nl external ears & nose, No nl lips & teeth, No nl nasal mucosa & septum, No mucosa pink and moist, No intubated, No other Neck: supple, non-tender, jvd, bruits; No masses, No thyromegaly, No nuchal rigidity, No other Respiratory: clear to auscultation, normal air movement, crackles/rales, diminished breath sounds, respirations; No congested cough, No intercostal retraction, No labored breathing, No tactile fremitus, No wheezing, No other Cardiovascular: regular rate and rhythm, bruits, jugular venous distention (JVD), systolic murmur; No nl pulses, No diastolic murmur, No edema, No gallop, No irregular rhythm, No murmurs/extra sounds, No rub, No S3, No S4, No other Gastrointestinal: soft, non-tender, bowel sounds, distended, hepatomegaly, other (Obesity with thick fatty layer of the anterior abdominal wall with no rebound.); No nl liver, spleen, No ascites, No firm, No mass, No rebound or guarding, No splenomegaly, No surgical scars, No tender Genitourinary - Female: nl adnexae, nl external genitalia, CVA tenderness; No CMT, No uterus, No other Musculoskeletal: joint tenderness, muscle tone, muscle weakness, spine non- tender (Severe tenderness of the intrascapular area lumbosacral area with great difficulty to get up to move. 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: EVENT AV OPERATOR 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; No nl mental status, No nl speech, No nl strength, No confused, No DTR's symmetric, No focal weakness, No lethargic, No numbness, No reflexes, No unresp onsive, No other Skin: nl turgor; No rash or lesions, No diaphoresis, No ecchymosis, No laceration, No puncture, No other Lymph: No nl lymph nodes, No enlarged, No nontender, No other BREAST- LARGE L BREAST MASS Medications Medications Current Medications Anastrozole (Arimidex) 1 mg DAILY PO Last administered on 05/13/18at 09:55; Admin Dose 1 MG; Start 04/25/18 at 19:00 Dexamethasone (Decadron) 4 mg Q8 IV Last administered on 05/13/18at 13:37; Admin Dose 4 MG; Start 04/25/18 at 22:00 Zolpidem Tartrate (Ambien) 10 mg HS PRN PO INSOMNIA; Start 04/25/18 at 23:30 Lorazepam (Ativan) 0.5 mg TID PRN PO ANXIETY Last administered on 05/13/18at 07:10; Admin Dose 0.5 MG; Start 04/25/18 at 23:30 Magnesium Hydroxide (Milk Of Mag) 30 ml DAILY PRN PO CONSTIPATION Last administered on 04/29/18 09:04; Admin Dose 30 ML; Start 04/27/18 at 21:00 Morphine Sulfate (morphine) 3 mg Q4H PRN IV SEVERE PAIN LEVEL 7-10 Last administered on 05/13/18 12:02; Admin Dose 3 MG; Start 04/27/18 at 21:00 Amlodipine Besylate (Norvasc) 5 mg BID PO Last administered on 05/13/18at 09:55; Admin Dose 5 MG; Start 04/28/18 at 04:00 Polyethylene Glycol (Miralax) 17 gm BID PO Last administered on 05/12/18at 20:3 2; Admin Dose 17 GM; Start 04/29/18 at 21:00 Docusate Sodium (Colace) 200 mg BID PO Last administered on 05/13/18 09:54; Admin Dose 200 MG; Start 04/29/18 at 21:00 Miscellaneous Information 1 ea NOTE XX ; Start 04/29/18 at 10:30 Glucose (Glutose) 15 gm Q15M PRN PO DECREASED GLUCOSE; Start 04/29/18 at 10:30 Glucose (Glutose) 22.5 gm Q15M PRN PO DECREASED GLUCOSE; Start 04/29/18 at 10:30 Dextrose (D50w Syringe) 25 ml Q15M PRN IV DECREASED GLUCOSE; Start 04/29/18 at 10:30 Dextrose (D50w Syringe) 50 ml Q15M PRN IV DECREASED GLUCOSE; Start 04/29/18 at 10:30 Glucagon (Glucagen) 1 mg Q15M PRN IM DECREASED GLUCOSE; Start 04/29/18 at 10:30 Glucose (Glutose) 15 gm Q15M PRN BUCCAL DECREASED GLUCOSE; Start 04/29/18 at 10:30 Benazepril HCl (Lotensin) 5 mg BID PO Last administered on 05/13/18at 09:55; Admin Dose 5 MG; Start 04/29/18 at 21:00 Insulin Aspart (Novolog Insulin Pen) NOVOLOG *MILD* ALGORI... Q6 SC Last administered on 05/12/18at 17:49; Admin Dose 2 UNIT; Start 05/01/18 at 12:00 Oxycodone HCl (Oxycontin) 20 mg BID PO Last administered on 05/13/18at 10:02; Admin Dose 20 MG; Start 05/01/18 at 21:00 Results Result Diagram: 05/12/18 0437 05/12/187 Results 24 hrs Laboratory Tests Test 05/12/18 17:22 05/12/18 22:29 05/13/18 05:50 05/13/18 12:08 Bedside Glucose 219 131 146 128 DES DUNAWAY MD May 13, 2018 14:02
[2018-05-13 15:09] VITALS: BP 134/71; PULSE 85; RESP 18
[2018-05-13 19:50] VITALS: BP 122/73; PULSE 75; RESP 18
--- NOTE | 2018-05-13 20:47 | PN ---
Date/Time of Note Date/Time of Note DATE: 05/13/18 TIME: 20:44 Assessment/Plan VTE Prophylaxis Risk score (from Nsg)>0 risk: 5 SCD applied (from Ns): No SCD contraindicated: low risk/ambulating Pharmacological prophylaxis: LMWH Lines/Catheters IV Catheter Type (from Nrs): Saline Lock Central line still needed: No Urinary Cath still in place: No Reason Cath still needed: urinary retention Assessment/Plan Assessment/Plan 1. Cancer of the left and left breast. Exact type at this time unknown.MULTIPLE BONY METS, PULMONARY METS 2. Severe pain in the interscapular and lumbar sacral area most probably metastatic lesion possible femoral fracture. pathologic fracture of T9 with 60% of loss of height. Neurosurgical consult planned. 3. Obesity. 4. Weight loss 60 pounds during the last 2 years by diet 5. PMS. 6. Myopia. 7. Anemia chronic disease. 8. Anxiety disorder. 9. Posttraumatic stress disorder. 10. Pain in the left forearm with a history of fracture of ulna and radius. 11. Tachycardia 12. Hypoxemia at night marginal improved after 2 L of nasal cannula oxygen. 13. Process at night. 14. 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 15.Pain syndrome. Subjective 24 Hr Interval Summary Free Text/Dictation , I tolerated her radiation therapy well today. I am able to tolerate this level of pain and they do not want to become dependent on the morphine. Constitutional: diaphoresis, poor po, requiring O2; No no complaints, No improved, No chills, No disoriented, No febrile, No requiring IVF, No other Eyes: No no complaints, No pain, No discharge, No redness, No visual change, No other ENT: congestion; No no complaints, No bleeding, No pain, No discharge, No dysphagia, No sore throat, No other Respiratory: shortness of breath; No no complaints, No pain, No cough, No pleuritic pain, No sputum, No wheezing, No other Cardiovascular: chest pain, lightheadedness, orthopenea, palpitations; No no complaints, No edema, No paroxysmal nocturnal dyspnea, No other Gastrointestinal: constipation, decreased appetite; No no complaints, No pain, No blood, No diarrhea, No flatus, No nausea, No passing stool, No vomiting, No other Genitourinary: dysuria; No no complaints, No bleeding, No discharge, No flank pain, No hematuria, No other Musculoskeletal: back pain, bone/joint pain; No no complaints, No neck pain, No restricted range of motion, No swelling, No other Skin: No no complaints, No bruising, No erythema, No laceration, No pruritis, No rash, No skin lesions, No other Neurologic: headache; No no complaints, No confusion, No dizziness, No focal-weakness, No syncope, No seizure, No other Psychological: anxiety; No no complaints, No nl mood/affect, No confusion, No depression, No suicidal, No other Exam/Review of Systems Vital Signs Vitals Vital Signs Date Temp Pulse Resp B/P (MAP) Pulse Ox O2 O2 Flow FiO2 Time Delivery Rate 05/13/18 98.3 75 18 122/73 96 Room Air 19:50 (89) Intake and Output 05/12/18 05/12/18 05/13/18 1414:59 22:59 06:59 IntakeIntake Total 300 ml 300 ml 400 ml OutputOutput Total 400 ml 300 ml BalanceBalance -100 ml 0 ml 400 ml Exam Constitutional: alert, oriented, well developed, distress, frail Psych: anxiety, depression; No no complaints, No nl mood/affect, No confusion, No suicidal, No other Head: normocephalic, atraumatic; No lacerations, No hematomas, No other Eyes: EOMI, nl lids, PERRL; No nl conjunctiva, No nl sclera, No icteric, No fundi, disc, No other ENMT: No nl external ears & nose, No nl lips & teeth, No nl nasal mucosa & septum, No mucosa pink and moist, No intubated, No tympanic membranes, No other Neck: jvd; No supple, No non-tender, No bruits, No masses, No thyromegaly, No nuchal rigidity, No other Respiratory: clear to auscultation, normal air movement, diminished breath sounds; No congested cough, No crackles/rales, No intercostal retraction, No labored breathing, No respirations, No tactile fremitus, No wheezing, No other Cardiovascular: regular rate and rhythm; No nl pulses, No bruits, No diastolic murmur, No edema, No gallop, No irregular rhythm, No jugular venous distention (JVD), No murmurs/extra sounds, No rub, No systolic murmur, No S3, No S4, No other Gastrointestinal: soft, nl liver, spleen, non-tender; No ascites, No bowel sounds, No distended, No firm, No hepatomegaly, No mass, No rebound or guarding, No splenomegaly, No surgical scars, No tender, No other Musculoskeletal: nl gait and stance (Painful walking mainly interscapular areas lumbosacral areas left more than right hip.), joint tenderness, muscle tone, muscle weakness; No nl extremities to inspection, No range of motion, No spine non-tender, No swelling, No other Extremities: No normal pulses, No calf tenderness, No cyanosis, No clubbing, No edema, No pitting pedal edema, No palpable cord, No tenderness, No other 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: ROBOTICS MECHANIC 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; No nl mental status, No nl speech, No nl strength, No confused, No DTR's sym metric, No focal weakness, No lethargic, No numbness, No reflexes, No unresponsive, No other Skin: nl turgor; No rash or lesions, No diaphoresis, No ecchymosis, No laceration, No puncture, No other Lymph: No nl lymph nodes, No enlarged, No nontender, No other Medications Medications Current Medications Anastrozole (Arimidex) 1 mg DAILY PO Last administered on 05/13/18at 09:55; Admin Dose 1 MG; Start 04/25/18 at 19:00 Dexamethasone (Decadron) 4 mg Q8 IV Last administered on 05/13/18at 13:37; A dmin Dose 4 MG; Start 04/25/18 at 22:00 Zolpidem Tartrate (Ambien) 10 mg HS PRN PO INSOMNIA; Start 04/25/18 at 23:30 Lorazepam (Ativan) 0.5 mg TID PRN PO ANXIETY Last administered on 05/13/18 07:10; Admin Dose 0.5 MG; Start 04/25/18 at 23:30 Magnesium Hydroxide (Milk Of Mag) 30 ml DAILY PRN PO CONSTIPATION Last administered on 04/29/18 09:04; Admin Dose 30 ML; Start 04/27/18 at 21:00 Morphine Sulfate (morphine) 3 mg Q4H PRN IV SEVERE PAIN LEVEL 7-10 Last administered on 11/26/18at 17:30; Admin Dose 3 MG; Start 04/27/18 at 21:00 Amlodipine Besylate (Norvasc) 5 mg BID PO Last administered on 05/13/18at 09:55; Admin Dose 5 MG; Start 04/28/18 at 04:00 Polyethylene Glycol (Miralax) 17 gm BID PO Last administered on 05/12/18at 20:32; Admin Dose 17 GM; Start 04/29/18 at 21:00 Docusate Sodium (Colace) 200 mg BID PO Last administered on 05/13/18at 09:54; Admin Dose 200 MG; Start 04/29/18 at 21:00 Miscellaneous Information 1 ea NOTE XX ; Start 04/29/18 at 10:30 Glucose (Glutose) 15 gm Q15M PRN PO DECREASED GLUCOSE; Start 04/29/18 at 10:30 Glucose (Glutose) 22.5 gm Q15M PRN PO DECREASED GLUCOSE; Start 04/29/18 at 10:30 Dextrose (D50w Syringe) 25 ml Q15M PRN IV DECREASED GLUCOSE; Start 04/29/18 at 10:30 Dextrose (D50w Syringe) 50 ml Q15M PRN IV DECREASED GLUCOSE; Start 04/29/18 at 10:30 Glucagon (Glucagen) 1 mg Q15M PRN IM DECREASED GLUCOSE; Start 04/29/18 at 10: 30 Glucose (Glutose) 15 gm Q15M PRN BUCCAL DECREASED GLUCOSE; Start 04/29/18 at 10:30 Benazepril HCl (Lotensin) 5 mg BID PO Last administered on 05/13/18at 09:55; Admin Dose 5 MG; Start 04/29/18 at 21:00 Insulin Aspart (Novolog Insulin Pen) NOVOLOG *MILD* ALGORI... Q6 SC Last administered on 05/12/18at 17:49; Admin Dose 2 UNIT; Start 05/01/18 at 12:00 Oxycodone HCl (Oxycontin) 20 mg BID PO Last administered on 05/13/18at 10:02; Admin Dose 20 MG; Start 05/01/18 at 21:00 Results Result Diagram: 05/12/18 0437 05/12/18 0437 Results 24 hrs Laboratory Tests Test 05/12/18 22:29 05/13/18 05:50 05/13/18 12:08 05/13/18 17:36 Bedside Glucose 131 146 128 175 RUSS JEROME MD May 13, 2018 20:47
[2018-05-13] MEDS ORDERED: INSULIN ASPART [NOVOLOG] 3 ML PEN SC SCH (21:30)
[2018-05-14 01:35] VITALS: BP 117/68; PULSE 81; RESP 16
[2018-05-14] MEDS: ACCU-CHEK XX SCH (02:00)
[2018-05-14] MEDS: morphine 4 MG/ML VIAL IV PRN ×5 (04:05→23:04)
[2018-05-14] MEDS: DEXAMETHASONE 4 MG/ML 1 ML INJ IV SCH ×3 (06:15→21:04)
[2018-05-14 07:26] VITALS: BP 140/74; PULSE 78; RESP 18
[2018-05-14 07:32] VITALS: BP 145/75; PULSE 70; RESP 18
[2018-05-14] MEDS: LORAZEPAM 0.5 MG TAB PO PRN ×2 (07:53→21:06)
[2018-05-14] MEDS: INSULIN ASPART [NOVOLOG] 3 ML PEN SC SCH ×4 (08:00→21:00)
[2018-05-14] MEDS: POLYETHYLENE GLYCOL 17 GM PACKET PO SCH ×2 (09:00→21:00)
--- NOTE | 2018-05-14 09:10 | PN ---
Date/Time of Note Date/Time of Note DATE: 05/14/18 TIME: 09:06 Assessment/Plan VTE Prophylaxis Risk score (from Nsg)>0 risk: 3 SCD applied (from Ns): No SCD contraindicated: low risk/ambulating Pharmacological prophylaxis: other (walks.) Lines/Catheters [facility]from [facility] Saline Lock Central line still needed: No Urinary Cath still in place: No Reason Cath still needed: urinary retention Assessment/Plan Assessment/Plan 1. Cancer of the left and left breast. Exact type at this time unknown.MULTIPLE BONY METS, PULMONARY METS 2. Severe pain in the interscapular and lumbar sacral area most probably metastatic lesion possible femoral fracture. pathologic fracture of T9 with 60% of loss of height. Neurosurgical consult planned. 3. Obesity. 4. Weight loss 60 pounds during the last 2 years by diet 5. PMS. 6. Myopia. 7. Anemia chronic disease. 8. Anxiety disorder. 9. Posttraumatic stress disorder. 10. Pain in the left forearm with a history of fracture of ulna and radius. 11. Tachycardia 12. Hypoxemia at night marginal improved after 2 L of nasal cannula oxygen. 13. Process at night. 14. 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 15.Pain syndrome. Subjective 24 Hr Interval Summary Free Text/Dictation Mild pain and stiffness in interscapular upper and lower back area not left more than her right hip. No fever or chills. Being highly emotional and getting in touch with the family who lives in [facility]. Slept well. Showing desire to get less pain medication as much as possible. Constitutional: requiring O2; No no complaints, No improved, No chills, No diaphoresis, No disoriented, No febrile, No poor po, No requiring IVF, No other Eyes: No no complaints, No pain, No discharge, No redness, No visual change, No other ENT: No no complaints, No bleeding, No pain, No congestion, No discharge, No dysphagia, No sore throat, No other Respiratory: No no complaints, No pain, No cough, No pleuritic pain, No shortness of breath, No sputum, No wheezing, No other Cardiovascular: chest pain, orthopenea, palpitations; No no complaints, No edema, No lightheadedness, No paroxysmal nocturnal dyspnea, No other Gastrointestinal: constipation; No no complaints, No pain, No blood, No decreased appetite, No diarrhea, No flatus, No nausea, No passing stool, No vomiting, No other Genitourinary: dysuria; No no complaints, No bleeding, No discharge, No flank pain, No hematuria, No other Musculoskeletal: back pain, bone/joint pain, neck pain; No no complaints, No restricted range of motion, No swelling, No other Skin: No no complaints, No bruising, No erythema, No laceration, No pruritis, No rash, No skin lesions, No other Neurologic: dizziness, headache; No no complaints, No confusion, No focal-weakness, No syncope, No seizure, No other Endocrine: dry skin; No no complaints, No polyuria, No polydypsia, No temp intolerance, No other Lymphatic: No no complaints, No adenopathy, No tender nodes, No lymphadema, No other Psychological: anxiety; No no complaints, No nl mood/affect, No confusion, No depression, No suicidal, No other Immunologic: No no complaints, No immunodeficiency, No pruritis, No rhinitis, No urticaria, No other Exam/Review of Systems Vital Signs Vitals Vital Signs Date Temp Pulse Resp B/P (MAP) Pulse Ox O2 O2 Flow FiO2 Time Delivery Rate 05/14/18 98.2 70 18 145/75 100 07:32 (98) 05/14/18 Room Air 01:35 Intake and Output 05/13/18 05/13/18 05/14/18 1515:00 23:00 07:00 IntakeIntake Total 800 ml 480 ml BalanceBalance 800 ml 480 ml Exam Constitutional: alert, oriented, well developed, frail, obese; No non-verbal, No distress, No other Psych: anxiety, depression; No no complaints, No nl mood/affect, No confusion, No suicidal, No other Head: normocephalic, atraumatic Eyes: EOMI, nl lids; No nl conjunctiva, No nl sclera, No PERRL, No icteric, No fundi, disc, No other ENMT: nl external ears & nose; No nl lips & teeth, No nl nasal mucosa & septum, No mucosa pink and moist, No intubated, No tympanic membranes, No other Neck: jvd, bruits; No supple, No non-tender, No masses, No thyromegaly, No nuchal rigidity, No other Respiratory: congested cough, diminished breath sounds; No clear to auscultation, No normal air movement, No crackles/rales, No intercostal retraction, No labored breathing, No respirations, No tactile fremitus, No wheezing, No other Cardiovascular: regular rate and rhythm, bruits, jugular venous distention (JVD); No nl pulses, No diastolic murmur, No edema, No gallop, No irregular rhythm, No murmurs/extra sounds, No rub, No systolic murmur, No S3, No S4, No other Gastrointestinal: soft; No nl liver, spleen, No non-tender, No ascites, No bowel sounds, No distended, No firm, No hepatomegaly, No mass, No rebound or guarding, No splenomegaly, No surgical scars, No tender, No other Genitourinary - Female: No nl adnexae, No nl external genitalia, No CMT, No CVA tenderness, No uterus, No other Musculoskeletal: joint tenderness, muscle tone; No nl extremities to inspection, No nl gait and stance, No muscle weakness, No range of motion, No spine non-tender, No swelling, No other Extremities: No normal pulses, No calf tenderness, No cyanosis, No clubbing, No edema, No pitting pedal edema, No palpable cord, No tenderness, No other 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: WASTE/MATERIALS EXCHANGE SPECIALIST 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 Medications Medications Current Medications Anastrozole (Arimidex) 1 mg DAILY PO Last administered on 05/13/18at 09:55; Admin Dose 1 MG; Start 04/25/18 at 19:00 Dexamethasone (Decadron) 4 mg Q8 IV Last administered on 05/14/18at 06:15; Admin Dose 4 MG; Start 04/25/18 at 22:00 Zolpidem Tartrate (Ambien) 10 mg HS PRN PO INSOMNIA; Start 04/25/18 at 23:30 Lorazepam (Ativan) 0.5 mg TID PRN PO ANXIETY Last administered on 05/14/18at 07:53; Admin Dose 0.5 MG; Start 04/25/18 at 23:30 Magnesium Hydroxide (Milk Of Mag) 30 ml DAILY PRN PO CONSTIPATION Last administered on 04/29/18at 09:04; Admin Dose 30 ML; Start 04/27/18 at 21:00 Morphine Sulfate (morphine) 3 mg Q4H PRN IV SEVERE PAIN LEVEL 7-10 Last administered on 05/14/18at 07:54; Admin Dose 3 MG; Start 04/27/18 at 21:00 Amlodipine Besylate (Norvasc) 5 mg BID PO Last administered on 05/13/18at 21:10; Admin Dose 5 MG; Start 04/28/18 at 04:00 Polyethylene Glycol (Miralax) 17 gm BID PO Last administered on 05/12/18at 20:32; Admin Dose 17 GM; Start 04/29/18 at 21:00 Docusate Sodium (Colace) 200 mg BID PO Last administered on 05/13/18at 21:10; Admin Dose 200 MG; Start 04/29/18 at 21:00 Miscellaneous Information 1 ea NOTE XX ; Start 04/29/18 at 10:30 Glucose (Glutose) 15 gm Q15M PRN PO DECREASED GLUCOSE; Start 04/29/18 at 10:30 Glucose (Glutose) 22.5 gm Q15M PRN PO DECREASED GLUCOSE; Start 04/29/18 at 10:30 Dextrose (D50w Syringe) 25 ml Q15M PRN IV DECREASED GLUCOSE; Start 04/29/18 at 10:30 Dextrose (D50w Syringe) 50 ml Q15M PRN IV DECREASED GLUCOSE; Start 04/29/18 at 10:30 Glucagon (Glucagen) 1 mg Q15M PRN IM DECREASED GLUCOSE; Start 04/29/18 at 10:30 Glucose (Glutose) 15 gm Q15M PRN BUCCAL DECREASED GLUCOSE; Start 04/29/18 at 10:30 Benazepril HCl (Lotensin) 5 mg BID PO Last administered on 05/13/18at 21:11; Admin Dose 5 MG; Start 04/29/18 at 21:00 Oxycodone HCl (Oxycontin) 20 mg BID PO Last administered on 05/13/18at 21:10; Admin Dose 20 MG; Start 05/01/18 at 21:00 Diagnostic Test (Pha) (Accu-Chek) 1 ea 02 XX ; Start 05/14/18 at 02:00 Insulin Aspart (Novolog Insulin Pen) NOVOLOG *MILD* ALGORITHM WITH MEALS BEDTIME SC ; Start 05/14/18 at 07:50 Results Result Diagram: 05/12/187 05/12/18 0437 Results 24 hrs Laboratory Tests Test 05/13/18 12:08 05/13/18 17:36 05/13/18 21:14 Bedside Glucose 128 175 146 RUSS JEROME MD May 14, 2018 09:10
[2018-05-14] MEDS: AMLODIPINE 5 MG TAB PO SCH ×2 (10:03→21:04)
[2018-05-14] MEDS: oxyCODONE (CR) 20 MG TAB [oxyCONTIN] PO SCH ×2 (10:04→21:05)
[2018-05-14] MEDS: DOCUSATE SODIUM 100 MG CAP PO SCH ×2 (10:04→21:03)
[2018-05-14] MEDS: BENAZEPRIL 5 MG TAB PO SCH ×2 (10:04→21:03)
[2018-05-14] MEDS: ANASTROZOLE 1 MG TAB PO SCH (10:06)
--- NOTE | 2018-05-14 11:55 | CONS ---
Date/Time of Note Date/Time of Note DATE: 05/14/18 TIME: 11:55 Assessment/Plan Assessment/Plan Chief Complaint/Hosp Course METASTATIC BREAST Cancer ( PRIMARY IS IN THE L BREAST ) with MULTIPLE BONY METS, PULMONARY METS SEVERE T-L SPINE PAIN WITH DIFFICULTIES TO AMBULATE MRI T-L SPINE- Diffuse osseous metastatic disease of the visualized thoracic spine (T10 - T12), the entire lumbar spine, sacrum, and bilateral iliac bones. Expansion of the posterior T9 vertebral body resulting in central canal stenosis with AP diameter measuring 8 mm. CONT IV STEROIDS CONT AI PAIN CONTROL RADONC AND NEUROSURG F-UP MRI C - SPINE AND R HIP BONE SCAN -Multiple skeletal metastases in the axial and appendicular skeleton PLAN- CONT XRT R FEMORAL LESION Because of the extensive and widespread metastatic lesion involving both vestibular part and proximal femoral part of the right hip and even if any surgical procedure is considered, she will need a special custom made acetabular part and proximal femoral part, which can be done in a big [facility], probably by oncologic orthopedic surgeon. Even if surgery is considered and she needs to be transferred to a [facility] the [facility] level of care including evaluation and care by oncology orthopedic surgeon, it is possible that because of the extensiveness of the metastatic lesions further surgical treatment may not be the recommended. PAIN CONT OXYCONTIN Obesity. Weight loss 60 pounds during the last 2 years by diet PMS. Myopia. Anemia chronic disease. Anxiety disorder. Posttraumatic stress disorder. Pain in the left forearm with a history of fracture of ulna and radius. 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 Consultation Date/Type/Reason Admit Date/Time Apr 25, 2018 at 14:37 Initial Consult Date 04/25/18 [facility] Provider: RUSS JEROME MD 24 HR Interval Summary Free Text/Dictation ALL NOTED NAD Exam/Review of Systems Vital Signs Vitals Vital Signs Date Temp Pulse Resp B/P (MAP) Pulse Ox O2 O2 Flow FiO2 Time Delivery Rate 05/14/18 98.2 70 18 145/75 100 07:32 (98) 05/14/18 Room Air 01:35 Intake and Output 05/13/18 05/13/18 05/14/18 1515:00 23:00 07:00 IntakeIntake Total 800 ml 480 ml BalanceBalance 800 ml 480 ml Exam Constitutional: alert, oriented, well developed, distress, frail; No non-verbal, No other Psych: anxiety, depression; No no complaints, No nl mood/affect, No confusion, No suicidal, No other Head: normocephalic, atraumatic; No lacerations, No hematomas, No other Eyes: EOMI, nl lids, PERRL; No nl conjunctiva, No nl sclera, No icteric, No fundi, disc, No other ENMT: tympanic membranes; No nl external ears & nose, No nl lips & teeth, No nl nasal mucosa & septum, No mucosa pink and moist, No intubated, No other Neck: supple, non-tender, jvd, bruits; No masses, No thyromegaly, No nuchal rigidity, No other Respiratory: clear to auscultation, normal air movement, crackles/rales, diminished breath sounds, respirations; No congested cough, No intercostal retraction, No labored breathing, No tactile fremitus, No wheezing, No other Cardiovascular: regular rate and rhythm, bruits, jugular venous distention (JVD), systolic murmur; No nl pulses, No diastolic murmur, No edema, No gallop, No irregular rhythm, No murmurs/extra sounds, No rub, No S3, No S4, No other Gastrointestinal: soft, non-tender, bowel sounds, distended, hepatomegaly, other (Obesity with thick fatty layer of the anterior abdominal wall with no rebound.); No nl liver, spleen, No ascites, No firm, No mass, No rebound or guarding, No splenomegaly, No surgical scars, No tender Genitourinary - Female: nl adnexae, nl external genitalia, CVA tenderness; No CMT, No uterus, No other Musculoskeletal: joint tenderness, muscle tone, muscle weakness, spine non- tender (Severe tenderness of the intrascapular area lumbosacral area with great difficulty to get up to move. 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; No nl mental status, No nl speech, No nl strength, No confused, No DTR's symmetric, No focal weakness, No lethargic, No numbness, No reflexes, No unresponsive, No other Skin: nl turgor; No rash or lesions, No diaphoresis, No ecchymosis, No laceration, No puncture, No other Lymph: No nl lymph nodes, No enlarged, No nontender, No other BREAST- LARGE L BREAST MASS Medications Medications Current Medications Anastrozole (Arimidex) 1 mg DAILY PO Last administered on 05/14/18at 10:06; Admin Dose 1 MG; Start 04/25/18 at 19:00 Dexamethasone (Decadron) 4 mg Q8 IV Last administered on 05/14/18at 06:15; Admi n Dose 4 MG; Start 04/25/18 at 22:00 Zolpidem Tartrate (Ambien) 10 mg HS PRN PO INSOMNIA; Start 04/25/18 at 23:30 Lorazepam (Ativan) 0.5 mg TID PRN PO ANXIETY Last administered on 05/14/18at 07:53; Admin Dose 0.5 MG; Start 04/25/18 at 23:30 Magnesium Hydroxide (Milk Of Mag) 30 ml DAILY PRN PO CONSTIPATION Last administered on 04/29/18at 09:04; Admin Dose 30 ML; Start 04/27/18 at 21:00 Morphine Sulfate (morphine) 3 mg Q4H PRN IV SEVERE PAIN LEVEL 7-10 Last administered on 05/14/18at 07:54; Admin Dose 3 MG; Start 04/27/18 at 21:00 Amlodipine Besylate (Norvasc) 5 mg BID PO Last administered on 05/14/18at 10:03; Admin Dose 5 MG; Start 04/28/18 at 04:00 Polyethylene Glycol (Miralax) 17 gm BID PO Last administered on 05/12/18at 20:32; Admin Dose 17 GM; Start 04/29/18 at 21:00 Docusate Sodium (Colace) 200 mg BID PO Last administered on 05/14/18at 10:04; Admin Dose 200 MG; Start 04/29/18 at 21:00 Miscellaneous Information 1 ea NOTE XX ; Start 04/29/18 at 10:30 Glucose (Glutose) 15 gm Q15M PRN PO DECREASED GLUCOSE; Start 04/29/18 at 10:30 Glucose (Glutose) 22.5 gm Q15M PRN PO DECREASED GLUCOSE; Start 04/29/18 at 10:30 Dextrose (D50w Syringe) 25 ml Q15M PRN IV DECREASED GLUCOSE; Start 04/29/18 at 10:30 Dextrose (D50w Syringe) 50 ml Q15M PRN IV DECREASED GLUCOSE; Start 04/29/18 at 10:30 Glucagon (Glucagen) 1 mg Q15M PRN IM DECREASED GLUCOSE; Start 04/29/18 at 10:30 Glucose (Glutose) 15 gm Q15M PRN BUCCAL DECREASED GLUCOSE; Start 04/29/18 at 10:30 Benazepril HCl (Lotensin) 5 mg BID PO Last administered on 05/14/18at 10:04; Admin Dose 5 MG; Start 04/29/18 at 21:00 Oxycodone HCl (Oxycontin) 20 mg BID PO Last administered on 05/14/18at 10:04; Admin Dose 20 MG; Start 05/01/18 at 21:00 Diagnostic Test (Pha) (Accu-Chek) 1 ea 02 XX ; Start 05/14/18 at 02:00 Insulin Aspart (Novolog Insulin Pen) NOVOLOG *MILD* ALGORITHM WITH MEALS BEDTIME SC ; Start 05/14/18 at 07:50 Results Result Diagram: 05/12/1843605/12/18 043 Results 24 hrs Laboratory Tests Test 05/13/18 12:08 05/13/18 17:36 05/13/18 21:14 Bedside Glucose 128 175 146 DES DUNAWAY MD May 14, 2018 11:55
[2018-05-14 16:15] VITALS: BP 121/66; PULSE 73; RESP 19
[2018-05-14 19:51] VITALS: BP 126/73; PULSE 82; RESP 18
[2018-05-15] MEDS: ACCU-CHEK XX SCH (02:00)
[2018-05-15] MEDS: DEXAMETHASONE 4 MG/ML 1 ML INJ IV SCH ×3 (05:55→21:29)
[2018-05-15] MEDS: morphine 4 MG/ML VIAL IV PRN ×4 (06:45→21:29)
[2018-05-15 07:19] VITALS: BP 126/74; PULSE 74; RESP 18
[2018-05-15] MEDS: INSULIN ASPART [NOVOLOG] 3 ML PEN SC SCH ×4 (07:50→20:29)
--- NOTE | 2018-05-15 09:16 | PN ---
Date/Time of Note Date/Time of Note DATE: 05/15/18 TIME: 09:15 Assessment/Plan VTE Prophylaxis Risk score (from Nsg)>0 risk: 3 SCD applied (from Ns): Yes SCD contraindicated: low risk/ambulating Pharmacological prophylaxis: LMWH Lines/Catheters IV Catheter Type (from Nrs): [place] [employer] line still needed: No Urinary Cath still in place: No Assessment/Plan Assessment/Plan 1. Cancer of the left and left breast. Exact type at this time unknown.MULTIPLE BONY METS, PULMONARY METS 2. Severe pain in the interscapular and lumbar sacral area most probably metastatic lesion possible femoral fracture. pathologic fracture of T9 with 60% of loss of height. Neurosurgical consult planned. 3. Obesity. 4. Weight loss 60 pounds during the last 2 years by diet 5. PMS. 6. Myopia. 7. Anemia chronic disease. 8. Anxiety disorder. 9. Posttraumatic stress disorder. 10. Pain in the left forearm with a history of fracture of ulna and radius. 11. Tachycardia 12. Hypoxemia at night marginal improved after 2 L of nasal cannula oxygen. 13. Process at night. 14. 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 15.Pain syndrome. Subjective 24 Hr Interval Summary Constitutional: improved; No no complaints, No chills, No diaphoresis, No disoriented, No febrile, No poor po, No requiring IVF, No requiring O2, No other Eyes: No no complaints, No pain, No discharge, No redness, No visual change, No other ENT: No no complaints, No bleeding, No pain, No congestion, No discharge, No dysphagia, No sore throat, No other Respiratory: No no complaints, No pain, No cough, No pleuritic pain, No shortness of breath, No sputum, No wheezing, No other Cardiovascular: lightheadedness; No no complaints, No chest pain, No edema, No orthopenea, No palpitations, No paroxysmal nocturnal dyspnea, No other Gastrointestinal: constipation; No no complaints, No pain, No blood, No decreased appetite, No diarrhea, No flatus, No nausea, No passing stool, No vomiting, No other Genitourinary: dysuria; No no complaints, No bleeding, No discharge, No flank pain, No hematuria, No other Musculoskeletal: back pain, bone/joint pain, neck pain; No no complaints, No restricted range of motion, No swelling, No other Neurologic: headache; No no complaints, No confusion, No dizziness, No focal-weakness, No syncope, No seizure, No other Psychological: anxiety, depression; No no complaints, No nl mood/affect, No confusion, No suicidal, No other Exam/Review of Systems Vital Signs Vitals Vital Signs Date Temp Pulse Resp B/P (MAP) Pulse Ox O2 O2 Flow FiO2 Time Delivery Rate 05/15/18 97.6 74 18 126/74 94 07:19 (91) 05/14/18 Room Air 19:51 Intake and Output 05/14/18 05/14/18 05/15/18 1515:00 23:00 07:00 IntakeIntake Total 800 ml 200 ml OutputOutput Total 200 ml BalanceBalance 800 ml 0 ml Exam Constitutional: alert, oriented, well developed, frail, obese Psych: anxiety, depression; No no complaints, No nl mood/affect, No confusion, No suicidal, No other Head: normocephalic, atraumatic Eyes: nl conjunctiva, nl lids, PERRL; No EOMI, No nl sclera, No icteric, No fundi, disc, No other ENMT: nl external ears & nose, nl lips & teeth, nl nasal mucosa & septum; No mucosa pink and moist, No intubated, No tympanic membranes, No other Neck: No supple, No non-tender, No jvd, No bruits, No masses, No thyromegaly, No nuchal rigidity, No other Respiratory: normal air movement, diminished breath sounds; No clear to auscultation, No congested cough, No crackles/rales, No intercostal retraction, No labored breathing, No respirations, No tactile fremitus, No wheezing, No other Cardiovascular: regular rate and rhythm, bruits, systolic murmur; No nl pulses, No diastolic murmur, No edema, No gallop, No irregular rhythm, No jugular venous distention (JVD), No murmurs/extra sounds, No rub, No S3, No S4, No other Gastrointestinal: soft, nl liver, spleen; No non-tender, No ascites, No bowel sounds, No distended, No firm, No hepatomegaly, No mass, No rebound or guarding, No splenomegaly, No surgical scars, No tender, No other Musculoskeletal: joint tenderness, muscle tone, muscle weakness; No nl extremities to inspection, No nl gait and stance, No range of motion, No spine non-tender, No swelling, No other Extremities: normal pulses; No calf tenderness, No cyanosis, No clubbing, No edema, No pitting pedal edema, No palpable cord, No tenderness, No other 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; No nl mental status, No nl speech, No nl strength, No confused, No DTR's symmetric, No focal weakness, No lethargic, No numbness, No reflexes, No unresponsive, No other Skin: nl turgor; No rash or lesions, No diaphoresis, No ecchymosis, No laceration, No punctu re, No other Lymph: nl lymph nodes; No enlarged, No nontender, No other Medications Medications Current Medications Anastrozole (Arimidex) 1 mg DAILY PO Last administered on 05/14/18 10:06; Admin Dose 1 MG; Start 04/25/18 at 19:00 Dexamethasone (Decadron) 4 mg Q8 IV Last administered on 05/15/18at 05:55; Admin Dose 4 MG; Start 04/25/18 at 22:00 Zolpidem Tartrate (Ambien) 10 mg HS PRN PO INSOMNIA; Start 04/25/18 at 23:30 Lorazepam (Ativan) 0.5 mg TID PRN PO ANXIETY Last administered on 05/14/18at 21:06; Admin Dose 0.5 MG; Start 04/25/18 at 23:30 Magnesium Hydroxide (Milk Of Mag) 30 ml DAILY PRN PO CONSTIPATION Last administered on 04/29/18at 09:04; Admin Dose 30 ML; Start 04/27/18 at 21:00 Morphine Sulfate (morphine) 3 mg Q4H PRN IV SEVERE PAIN LEVEL 7-10 Last administered on 05/15/18 06:45; Admin Dose 3 MG; Start 04/27/18 at 21:00 Amlodipine Besylate (Norvasc) 5 mg BID PO Last administered on 05/14/18at 21:04; Admin Dose 5 MG; Start 04/28/18 at 04:00 Polyethylene Glycol (Miralax) 17 gm BID PO Last administered on 05/12/18at 20:32; Admin Dose 17 GM; Start 04/29/18 at 21:00 Docusate Sodium (Colace) 200 mg BID PO Last administered on 05/14/18at 21:03; Admin Dose 200 MG; Start 04/29/18 at 21:00 Miscellaneous Information 1 ea NOTE XX ; Start 04/29/18 at 10:30 Glucose (Glutose) 15 gm Q15M PRN PO DECREASED GLUCOSE; Start 04/29/18 at 10:30 Glucose (Glutose) 22.5 gm Q15M PRN PO DECREASED GLUCOSE; Start 04/29/18 at 10:30 Dextrose (D50w Syringe) 25 ml Q15M PRN IV DECREASED GLUCOSE; Start 04/29/18 at 10:30 Dextrose (D50w Syringe) 50 ml Q15M PRN IV DECREASED GLUCOSE; Start 04/29/18 at 10:30 Glucagon (Glucagen) 1 mg Q15M PRN IM DECREASED GLUCOSE; Start 04/29/18 at 10:30 Glucose (Glutose) 15 gm Q15M PRN BUCCAL DECREASED GLUCOSE; Start 04/29/18 at 10:30 Benazepril HCl (Lotensin) 5 mg BID PO Last administered on 05/14/18at 21:03; Admin Dose 5 MG; Start 04/29/18 at 21:00 Oxycodone HCl (Oxycontin) 20 mg BID PO Last administered on 05/14/18at 21:05; Admin Dose 20 MG; Start 05/01/18 at 21:00 Diagnostic Test (Pha) (Accu-Chek) 1 ea 02 XX ; Start 05/14/18 at 02:00 Insulin Aspart (Novolog Insulin Pen) NOVOLOG *MILD* ALGORITHM WITH MEALS BEDTIME SC ; Start 05/14/18 at 07:50 Results Result Diagram: 05/12/18 0437 05/12/18 0437 Results 24 hrs Laboratory Tests Test 05/14/18 13:12 05/14/18 17:48 05/14/18 20:55 Bedside Glucose 88 141 179 RUSS JEROME MD May 15, 2018 09:16
[2018-05-15] MEDS: DOCUSATE SODIUM 100 MG CAP PO SCH ×2 (09:54→20:29)
[2018-05-15] MEDS: oxyCODONE (CR) 20 MG TAB [oxyCONTIN] PO SCH ×2 (09:55→20:29)
[2018-05-15] MEDS: AMLODIPINE 5 MG TAB PO SCH ×2 (09:55→20:30)
[2018-05-15] MEDS: BENAZEPRIL 5 MG TAB PO SCH ×2 (09:55→20:30)
[2018-05-15] MEDS: POLYETHYLENE GLYCOL 17 GM PACKET PO SCH ×2 (09:56→20:30)
[2018-05-15] MEDS: ANASTROZOLE 1 MG TAB PO SCH (09:56)
--- NOTE | 2018-05-15 11:55 | CONS ---
Date/Time of Note Date/Time of Note DATE: 05/15/18 TIME: 11:55 Assessment/Plan Assessment/Plan Chief Complaint/Hosp Course METASTATIC BREAST Cancer ( PRIMARY IS IN THE L BREAST ) with MULTIPLE BONY METS, PULMONARY METS SEVERE T-L SPINE PAIN WITH DIFFICULTIES TO AMBULATE MRI T-L SPINE- Diffuse osseous metastatic disease of the visualized thoracic spine (T10 - T12), the entire lumbar spine, sacrum, and bilateral iliac bones. Expansion of the posterior T9 vertebral body resulting in central canal stenosis with AP diameter measuring 8 mm. CONT IV STEROIDS CONT AI PAIN CONTROL RADONC AND NEUROSURG F-UP MRI C - SPINE AND R HIP BONE SCAN -Multiple skeletal metastases in the axial and appendicular skeleton PLAN- CONT XRT R FEMORAL LESION Because of the extensive and widespread metastatic lesion involving both vestibular part and proximal femoral part of the right hip and even if any surgical procedure is considered, she will need a special custom made acetabular part and proximal femoral part, which can be done in a big [facility] center, probably by oncologic orthopedic surgeon. Even if surgery is considered and she needs to be transferred to a [facility] the [facility] level of care including evaluation and care by oncology orthopedic surgeon, it is possible that because of the extensiveness of the metastatic lesions further surgical treatment may not be the recommended. PAIN CONT OXYCONTIN Obesity. Weight loss 60 pounds during the last 2 years by diet PMS. Myopia. Anemia chronic disease. Anxiety disorder. Posttraumatic stress disorder. Pain in the left forearm with a history of fracture of ulna and radius. 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 Date/Type/Reason Admit Date/Time Apr 25, 2018 at 14:37 Initial Consult Date 04/25/18 Type of Consultation: hemeonc 24 HR Interval Summary Free Text/Dictation ALL NOTED NAD Exam/Review of Systems Vital Signs Vitals Vital Signs Date Temp Pulse Resp B/P (MAP) Pulse Ox O2 O2 Flow FiO2 Time Delivery Rate 05/15/18 97.6 74 18 126/74 94 07:19 (91) 05/14/18 Room Air 19:51 Intake and Output 05/14/18 05/14/18 05/15/18 1515:00 23:00 07:00 IntakeIntake Total 800 ml 200 ml OutputOutput Total 200 ml BalanceBalance 800 ml 0 ml Exam Constitutional: alert, oriented, well developed, distress, frail; No non-verbal, No other Psych: anxiety, depression; No no complaints, No nl mood/affect, No confusion, No suicidal, No other Head: normocephalic, atraumatic; No lacerations, No hematomas, No other Eyes: EOMI, nl lids, PERRL; No nl conjunctiva, No nl sclera, No icteric, No fundi, disc, No other ENMT: tympanic membranes; No nl external ears & nose, No nl lips & teeth, No nl nasal mucosa & septum, No mucosa pink and moist, No intubated, No other Neck: supple, non-tender, jvd, bruits; No masses, No thyromegaly, No nuchal rigidity, No other Respiratory: clear to auscultation, normal air movement, crackles/rales, diminished breath sounds, respirations; No congested cough, No intercostal retraction, No labored breathing, No tactile fremitus, No wheezing, No other Cardiovascular: regular rate and rhythm, bruits, jugular venous distention (JVD), systolic murmur; No nl pulses, No diastolic murmur, No edema, No gallop, No irregular rhythm, No murmurs/extra sounds, No rub, No S3, No S4, No other Gastrointestinal: soft, non-tender, bowel sounds, distended, hepatomegaly, other (Obesity with thick fatty layer of the anterior abdominal wall with no rebound.); No nl liver, spleen, No ascites, No firm, No mass, No rebound or guarding, No splenomegaly, No surgical scars, No tender Genitourinary - Female: nl adnexae, nl external genitalia, CVA tenderness; No CMT, No uterus, No other Musculoskeletal: joint tenderness, muscle tone, muscle weakness, spine non- tender (Severe tenderness of the intrascapular area lumbosacral area with great difficulty to get up to move. 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; No nl mental status, No nl speech, No nl strength, No confused, No DTR's symmetric, No focal weakness, No lethargic, No numbness, No reflexes, No unrespo nsive, No other Skin: nl turgor; No rash or lesions, No diaphoresis, No ecchymosis, No laceration, No puncture, No other Lymph: No nl lymph nodes, No enlarged, No nontender, No other BREAST- LARGE L BREAST MASS Medications Medications Current Medications Anastrozole (Arimidex) 1 mg DAILY PO Last administered on 05/15/18 09:56; Admin Dose 1 MG; Start 04/25/18 at 19:00 Dexamethasone (Decadron) 4 mg Q8 IV Last administered on 05/15/18 05:55; Admin Dose 4 MG; Start 04/25/18 at 22:00 Zolpidem Tartrate (Ambien) 10 mg HS PRN PO INSOMNIA; Start 04/25/18 at 23:30 Lorazepam (Ativan) 0.5 mg TID PRN PO ANXIETY Last administered on 05/14/18at 21:06; Admin Dose 0.5 MG; Start 04/25/18 at 23:30 Magnesium Hydroxide (Milk Of Mag) 30 ml DAILY PRN PO CONSTIPATION Last administered on 04/29/18 09:04; Admin Dose 30 ML; Start 04/27/18 at 21:00 Morphine Sulfate (morphine) 3 mg Q4H PRN IV SEVERE PAIN LEVEL 7-10 Last administered on 05/15/18at 10:52; Admin Dose 3 MG; Start 04/27/18 at 21:00 Amlodipine Besylate (Norvasc) 5 mg BID PO Last administered on 05/15/18at 09:55; Admin Dose 5 MG; Start 04/28/18 at 04:00 Polyethylene Glycol (Miralax) 17 gm BID PO Last administered on 05/15/18 09:56; Admin Dose 17 GM; Start 04/29/18 at 21:00 Docusate Sodium (Colace) 200 mg BID PO Last administered on 05/15/18 09:54; Admin Dose 200 MG; Start 04/29/18 at 21:00 Miscellaneous Information 1 ea NOTE XX ; Start 04/29/18 at 10:30 Glucose (Glutose) 15 gm Q15M PRN PO DECREASED GLUCOSE; Start 04/29/18 at 10:30 Glucose (Glutose) 22.5 gm Q15M PRN PO DECREASED GLUCOSE; Start 04/29/18 at 10:30 Dextrose (D50w Syringe) 25 ml Q15M PRN IV DECREASED GLUCOSE; Start 04/29/18 at 10:30 Dextrose (D50w Syringe) 50 ml Q15M PRN IV DECREASED GLUCOSE; Start 04/29/18 at 10:30 Glucagon (Glucagen) 1 mg Q15M PRN IM DECREASED GLUCOSE; Start 04/29/18 at 10:30 Glucose (Glutose) 15 gm Q15M PRN BUCCAL DECREASED GLUCOSE; Start 04/29/18 at 10:30 Benazepril HCl (Lotensin) 5 mg BID PO Last administered on 05/15/18at 09:55; Admin Dose 5 MG; Start 04/29/18 at 21:00 Oxycodone HCl (Oxycontin) 20 mg BID PO Last administered on 05/15/18at 09:55; Admin Dose 20 MG; Start 05/01/18 at 21:00 Diagnostic Test (Pha) (Accu-Chek) 1 ea 02 XX ; Start 05/14/18 at 02:00 Insulin Aspart (Novolog Insulin Pen) NOVOLOG *MILD* ALGORITHM WITH MEALS BEDTIME SC ; Start 05/14/18 at 07:50 Results Result Diagram: 05/12/18 0437 05/12/187 Results 24 hrs Laboratory Tests Test 05/14/18 13:12 05/14/18 17:48 05/14/18 20:55 Bedside Glucose 88 141 179 DES DUNAWAY MD May 15, 2018 11:55
[2018-05-15 16:21] VITALS: BP 115/79; PULSE 94; RESP 18
[2018-05-15 19:10] VITALS: BP 115/68; PULSE 83; RESP 20
[2018-05-16] MEDS: morphine 4 MG/ML VIAL IV PRN ×5 (01:24→21:54)
[2018-05-16] MEDS: ACCU-CHEK XX SCH (02:00)
[2018-05-16 02:10] VITALS: BP 136/68; PULSE 71; RESP 20
[2018-05-16] MEDS: DEXAMETHASONE 4 MG/ML 1 ML INJ IV SCH ×3 (06:17→21:54)
[2018-05-16 07:48] VITALS: BP 139/76; PULSE 69; RESP 20
--- NOTE | 2018-05-16 09:29 | PN ---
Date/Time of Note Date/Time of Note DATE: 05/16/18 TIME: 09:28 Assessment/Plan VTE Prophylaxis Risk score (from Nsg)>0 risk: 3 SCD applied (from Nsg): Yes SCD contraindicated: low risk/ambulating Pharmacological prophylaxis: LMWH Lines/Catheters IV Catheter Type (from Nrsg): [place] [employer] line still needed: No Urinary Cath still in place: No Reason Cath still needed: urinary retention Assessment/Plan Assessment/Plan 1. Cancer of the left and left breast. Exact type at this time unknown.MULTIPLE BONY METS, PULMONARY METS 2. Severe pain in the interscapular and lumbar sacral area most probably metastatic lesion possible femoral fracture. pathologic fracture of T9 with 60% of loss of height. Neurosurgical consult planned. 3. Obesity. 4. Weight loss 60 pounds during the last 2 years by diet 5. PMS. 6. Myopia. 7. Anemia chronic disease. 8. Anxiety disorder. 9. Posttraumatic stress disorder. 10. Pain in the left forearm with a history of fracture of ulna and radius. 11. Tachycardia 12. Hypoxemia at night marginal improved after 2 L of nasal cannula oxygen. 13. Process at night. 14. 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 15.Pain syndrome. Subjective 24 Hr Interval Summary Free Text/Dictation Tolerated the radiation procedure well. Pain is tolerable. Attempting to decrease the frequency of use of painkillers. Slept well. Difficult to control emotions while remembering children and grandchildren. Constitutional: no complaints (Sensation of emptiness inside when the radiation is done.); No improved, No chills, No diaphoresis, No disoriented, No febrile, No poor po, No requiring IVF, No requiring O2, No other Eyes: No no complaints, No pain, No discharge, No redness, No visual change, No other ENT: No no complaints, No bleeding, No pain, No congestion, No discharge, No dysphagia, No sore throat, No other Respiratory: No no complaints, No pain, No cough, No pleuritic pain, No shortness of breath, No sputum, No wheezing, No other Cardiovascular: No no complaints, No chest pain, No edema, No lightheadedness, No orthopenea, No palpitations, No paroxysmal nocturnal dyspnea, No other Gastrointestinal: constipation; No no complaints, No pain, No blood, No decreased appetite, No diarrhea, No flatus, No nausea, No passing stool, No vomiting, No other Genitourinary: no complaints Musculoskeletal: back pain, bone/joint pain (Left of the right hip area pain.); No no complaints, No neck pain, No restricted range of motion, No swelling, No other Skin: No no complaints, No bruising, No erythema, No laceration, No pruritis, No rash, No skin lesions, No other Neurologic: headache; No no complaints, No confusion, No dizziness, No focal-weakness, No syncope, No seizure, No other Endocrine: dry skin; No no complaints, No polyuria, No polydypsia, No temp intolerance, No other Lymphatic: No no complaints, No adenopathy, No tender nodes, No lymphadema, No other Psychological: anxiety; No no complaints, No nl mood/affect, No confusion, No depression, No suicidal, No other Immunologic: pruritis; No no complaints, No immunodeficiency, No rhinitis, No urticaria, No other Exam/Review of Systems Vital Signs Vitals Vital Signs Date Temp Pulse Resp B/P (MAP) Pulse Ox O2 O2 Flow FiO2 Time Delivery Rate 05/16/18 98.2 69 20 139/76 95 07:48 (97) 05/16/18 Room Air 02:10 Intake and Output 05/15/18 05/15/18 05/16/18 1515:00 23:00 07:00 IntakeIntake Total 400 ml BalanceBalance 400 ml Exam Constitutional: alert, oriented, well developed, distress (During conversation she was talking with the family and got very anxious and tearful.), frail, obese; No non-verbal, No other Psych: anxiety, depression; No no complaints, No nl mood/affect, No confusion, No suicidal, No other Head: normocephalic, atraumatic; No lacerations, No hematomas, No other Eyes: EOMI, nl lids; No nl conjunctiva, No nl sclera, No PERRL, No icteric, No fundi, disc, No other ENMT: No nl external ears & nose, No nl lips & teeth, No nl nasal mucosa & septum, No mucosa pink and moist, No intubated, No tympanic membranes, No other Neck: non-tender, bruits Respiratory: normal air movement; No clear to auscultation, No congested cough, No crackles/rales, No diminished breath sounds, No intercostal retraction, No labored breathing, No respirations, No tactile fremitus, No wheezing, No other Cardiovascular: regular rate and rhythm, bruits; No nl pulses, No diastolic murmur, No edema, No gallop, No irregular rhythm, No jugular venous distention (JVD), No murmurs/extra sounds, No rub, No systolic murmur, No S3, No S4, No other Gastrointestinal: soft, nl liver, spleen, non-tender; No ascites, No bowel sounds, No distended, No firm, No hepatomegaly, No mass, No rebound or guarding, No splenomegaly, No surgical scars, No tender, No other Musculoskeletal: joint tenderness, muscle tone; No nl extremities to inspection, No nl gait and stance, No muscle weakness, No range of motion, No spine non-tender, No swelling, No other Extremities: normal pulses; No calf tenderness, No cyanosis, No clubbing, No edema, No pitting pedal edema, No palpable cord, No tenderness, No other 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: BRIM BUSTER 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, nl speech; No nl mental status, No nl strength, No confused, No DTR's symmetric, No focal weakness, No lethargic, No numbness, No reflexes, No unresponsive, No other Skin: nl turgor; No rash or lesions, No diaphoresis, No ecchymosis, No laceration, No puncture, No other Lymph: nl lymph nodes; No enlarged, No nontender, No other Medications Medications Current Medications Anastrozole (Arimidex) 1 mg DAILY PO Last administered on 05/15/18at 09:56; Admin Dose 1 MG; Start 04/25/18 at 19:00 Dexamethasone (Decadron) 4 mg Q8 IV Last administered on 05/16/18at 06:17; Admin Dose 4 MG; Start 04/25/18 at 22:00 Zolpidem Tartrate (Ambien) 10 mg HS PRN PO INSOMNIA; Start 04/25/18 at 23:30 Lorazepam (Ativan) 0.5 mg TID PRN PO ANXIETY Last administered on 05/14/18at 21:06; Admin Dose 0.5 MG; Start 04/25/18 at 23:30 Magnesium Hydroxide (Milk Of Mag) 30 ml DAILY PRN PO CONSTIPATION Last a dministered on 04/29/18at 09:04; Admin Dose 30 ML; Start 04/27/18 at 21:00 Morphine Sulfate (morphine) 3 mg Q4H PRN IV SEVERE PAIN LEVEL 7-10 Last administered on 05/16/18at 06:52; Admin Dose 3 MG; Start 04/27/18 at 21:00 Amlodipine Besylate (Norvasc) 5 mg BID PO Last administered on 05/15/18at 20:30; Admin Dose 5 MG; Start 04/28/18 at 04:00 Polyethylene Glycol (Miralax) 17 gm BID PO Last administered on 05/15/18at 09:56; Admin Dose 17 GM; Start 04/29/18 at 21:00 Docusate Sodium (Colace) 200 mg BID PO Last administered on 05/15/18at 20:29; Admin Dose 200 MG; Start 04/29/18 at 21:00 Miscellaneous Information 1 ea NOTE XX ; Start 04/29/18 at 10:30 Glucose (Glutose) 15 gm Q15M PRN PO DECREASED GLUCOSE; Start 04/29/18 at 10:30 Glucose (Glutose) 22.5 gm Q15M PRN PO DECREASED GLUCOSE; Start 04/29/18 at 10:30 Dextrose (D50w Syringe) 25 ml Q15M PRN IV DECREASED GLUCOSE; Start 04/29/18 at 10:30 Dextrose (D50w Syringe) 50 ml Q15M PRN IV DECREASED GLUCOSE; Start 04/29/18 at 10:30 Glucagon (Glucagen) 1 mg Q15M PRN IM DECREASED GLUCOSE; Start 04/29/18 at 10:30 Glucose (Glutose) 15 gm Q15M PRN BUCCAL DECREASED GLUCOSE; Start 04/29/18 at 10:30 Benazepril HCl (Lotensin) 5 mg BID PO Last administered on 05/15/18at 09:55; Admin Dose 5 MG; Start 04/29/18 at 21:00 Oxycodone HCl (Oxycontin) 20 mg BID PO Last administered on 05/15/18at 20:29; Admin Dose 20 MG; Start 05/01/18 at 21:00 Diagnostic Test (Pha) (Accu-Chek) 1 ea 02 XX ; Start 05/14/18 at 02:00 Insulin Aspart (Novolog Insulin Pen) NOVOLOG *MILD* ALGORITHM WITH MEALS BEDTIME SC Last administered on 05/15/18at 17:53; Admin Dose 2 UNIT; Start 05/14/18 at 07:50 Results Result Diagram: 05/12/18 0437 05/12/18 0437 Results 24 hrs Laboratory Tests Test 05/15/18 12:50 05/15/18 17:47 05/15/18 20:26 Bedside Glucose 142 219 136 RUSS JEROME MD May 16, 2018 09:29
[2018-05-16] MEDS: POLYETHYLENE GLYCOL 17 GM PACKET PO SCH ×2 (09:30→21:00)
[2018-05-16] MEDS: AMLODIPINE 5 MG TAB PO SCH ×2 (09:30→21:12)
[2018-05-16] MEDS: BENAZEPRIL 5 MG TAB PO SCH ×2 (09:30→21:00)
[2018-05-16] MEDS: DOCUSATE SODIUM 100 MG CAP PO SCH ×3 (09:30→21:15)
[2018-05-16] MEDS: ANASTROZOLE 1 MG TAB PO SCH (09:32)
[2018-05-16] MEDS: INSULIN ASPART [NOVOLOG] 3 ML PEN SC SCH ×4 (09:32→21:00)
[2018-05-16] MEDS: oxyCODONE (CR) 20 MG TAB [oxyCONTIN] PO SCH ×2 (09:36→21:11)
[2018-05-16 14:31] VITALS: BP 115/61; PULSE 69; RESP 16
--- NOTE | 2018-05-16 16:07 | CONS ---
Date/Time of Note Date/Time of Note DATE: 05/16/18 TIME: 16:07 Assessment/Plan Assessment/Plan Chief Complaint/Hosp Course METASTATIC BREAST Cancer ( PRIMARY IS IN THE L BREAST ) with MULTIPLE BONY METS, PULMONARY METS SEVERE T-L SPINE PAIN WITH DIFFICULTIES TO AMBULATE MRI T-L SPINE- Diffuse osseous metastatic disease of the visualized thoracic spine (T10 - T12), the entire lumbar spine, sacrum, and bilateral iliac bones. Expansion of the posterior T9 vertebral body resulting in central canal stenosis with AP diameter measuring 8 mm. CONT IV STEROIDS CONT AI PAIN CONTROL RADONC AND NEUROSURG F-UP MRI C - SPINE AND R HIP BONE SCAN -Multiple skeletal metastases in the axial and appendicular skeleton PLAN- CONT XRT R FEMORAL LESION Because of the extensive and widespread metastatic lesion involving both vestibular part and proximal femoral part of the right hip and even if any surgical procedure is considered, she will need a special custom made acetabular part and proximal femoral part, which can be done in a [facility], probably by oncologic orthopedic surgeon. Even if surgery is considered and she needs to be [facility] level of care including evaluation and care by oncology orthopedic surgeon, it is possible that because of the extensiveness of the metastatic lesions further surgical treatment may not be the recommended. PAIN CONT OXYCONTIN Obesity. Weight loss 60 pounds during the last 2 years by diet PMS. Myopia. Anemia chronic disease. Anxiety disorder. Posttraumatic stress disorder. Pain in the left forearm with a history of fracture of ulna and radius. 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 Date/Type/Reason Admit Date/Time Apr 25, 2018 at 14:37 Initial Consult Date 04/25/18 Type of Consultation: hemeonc Exam/Review of Systems Vital Signs Vitals Vital Signs Date Temp Pulse Resp B/P (MAP) Pulse Ox O2 O2 Flow FiO2 Time Delivery Rate 05/16/18 98.0 69 16 115/61 96 14:31 (79) 05/16/18 Room Air 02:10 Intake and Output 05/15/18 05/15/18 05/16/18 1515:00 23:00 07:00 IntakeIntake Total 400 ml BalanceBalance 400 ml Exam Constitutional: alert, oriented, well developed, distress, frail; No non-verbal, No other Psych: anxiety, depression; No no complaints, No nl mood/affect, No confusion, No suicidal, No other Head: normocephalic, atraumatic; No lacerations, No hematomas, No other Eyes: EOMI, nl lids, PERRL; No nl conjunctiva, No nl sclera, No icteric, No fundi, disc, No other ENMT: tympanic membranes; No nl external ears & nose, No nl lips & teeth, No nl nasal mucosa & septum, No mucosa pink and moist, No intubated, No other Neck: supple, non-tender, jvd, bruits; No masses, No thyromegaly, No nuchal rigidity, No other Respiratory: clear to auscultation, normal air movement, crackles/rales, diminished breath sounds, respirations; No congested cough, No intercostal retraction, No labored breathing, No tactile fremitus, No wheezing, No other Cardiovascular: regular rate and rhythm, bruits, jugular venous distention (JVD), systolic murmur; No nl pulses, No diastolic murmur, No edema, No gallop, No irregular rhythm, No murmurs/extra sounds, No rub, No S3, No S4, No other Gastrointestinal: soft, non-tender, bowel sounds, distended, hepatomegaly, other (Obesity with thick fatty layer of the anterior abdominal wall with no rebound.); No nl liver, spleen, No ascites, No firm, No mass, No rebound or guarding, No splenomegaly, No surgical scars, No tender Genitourinary - Female: nl adnexae, nl external genitalia, CVA tenderness; No CMT, No uterus, No other Musculoskeletal: joint tenderness, muscle tone, muscle weakness, spine non- tender (Severe tenderness of the intrascapular area lumbosacral area with great difficulty to get up to move. 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: LUNCHEONETTE OPERATOR 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; No nl mental status, No nl speech, No nl strength, No confused, No DTR's symm etric, No focal weakness, No lethargic, No numbness, No reflexes, No unresponsive, No other Skin: nl turgor; No rash or lesions, No diaphoresis, No ecchymosis, No laceration, No puncture, No other Lymph: No nl lymph nodes, No enlarged, No nontender, No other BREAST- LARGE L BREAST MASS Medications Medications Current Medications Anastrozole (Arimidex) 1 mg DAILY PO Last administered on 05/16/18 09:32; Admin Dose 1 MG; Start 04/25/18 at 19:00 Dexamethasone (Decadron) 4 mg Q8 IV Last administered on 05/16/18 15:55; Admin Dose 4 MG; Start 04/25/18 at 22:00 Zolpidem Tartrate (Ambien) 10 mg HS PRN PO INSOMNIA; Start 04/25/18 at 23:30 Lorazepam (Ativan) 0.5 mg TID PRN PO ANXIETY Last administered on 05/14/18 21:06; Admin Dose 0.5 MG; Start 04/25/18 at 23:30 Magnesium Hydroxide (Milk Of Mag) 30 ml DAILY PRN PO CONSTIPATION Last administered on 04/29/18 09:04; Admin Dose 30 ML; Start 04/27/18 at 21:00 Morphine Sulfate (morphine) 3 mg Q4H PRN IV SEVERE PAIN LEVEL 7-10 Last admin istered on 05/16/18 15:57; Admin Dose 3 MG; Start 04/27/18 at 21:00 Amlodipine Besylate (Norvasc) 5 mg BID PO Last administered on 05/16/18 09:30; Admin Dose 5 MG; Start 04/28/18 at 04:00 Polyethylene Glycol (Miralax) 17 gm BID PO Last administered on 05/16/18 09:30; Admin Dose 17 GM; Start 04/29/18 at 21:00 Docusate Sodium (Colace) 200 mg BID PO Last administered on 05/16/18 09:30; Admin Dose 200 MG; Start 04/29/18 at 21:00 Miscellaneous Information 1 ea NOTE XX ; Start 04/29/18 at 10:30 Glucose (Glutose) 15 gm Q15M PRN PO DECREASED GLUCOSE; Start 04/29/18 at 10:30 Glucose (Glutose) 22.5 gm Q15M PRN PO DECREASED GLUCOSE; Start 04/29/18 at 10:30 Dextrose (D50w Syringe) 25 ml Q15M PRN IV DECREASED GLUCOSE; Start 04/29/18 at 10:30 Dextrose (D50w Syringe) 50 ml Q15M PRN IV DECREASED GLUCOSE; Start 04/29/18 at 10:30 Glucagon (Glucagen) 1 mg Q15M PRN IM DECREASED GLUCOSE; Start 04/29/18 at 10:30 Glucose (Glutose) 15 gm Q15M PRN BUCCAL DECREASED GLUCOSE; Start 04/29/18 at 10:30 Benazepril HCl (Lotensin) 5 mg BID PO Last administered on 05/16/18at 09:30; Admin Dose 5 MG; Start 04/29/18 at 21:00 Oxycodone HCl (Oxycontin) 20 mg BID PO Last administered on 05/16/18at 09:36; Admin Dose 20 MG; Start 05/01/18 at 21:00 Diagnostic Test (Pha) (Accu-Chek) 1 ea 02 XX ; Start 05/14/18 at 02:00 Insulin Aspart (Novolog Insulin Pen) NOVOLOG *MILD* ALGORITHM WITH MEALS BEDTIME SC Last administered on 05/15/18at 17:53; Admin Dose 2 UNIT; Start 05/14/18 at 07:50 Results Result Diagram: 05/12/18 0437 05/12/18436 Results 24 hrs Laboratory Tests Test 05/15/18 17:47 05/15/18 20:26 05/16/18 09:29 05/16/18 12:59 Bedside Glucose 219 136 128 118 DES DUNAWAY MD May 16, 2018 16:07
[2018-05-16 19:40] VITALS: BP 116/71; PULSE 74; RESP 20
[2018-05-17] MEDS: ACCU-CHEK XX SCH ×2 (02:00→22:43)
[2018-05-17 03:00] VITALS: BP 139/82; PULSE 74; RESP 20
[2018-05-17] MEDS: DEXAMETHASONE 4 MG/ML 1 ML INJ IV SCH (06:10)
[2018-05-17] MEDS: morphine 4 MG/ML VIAL IV PRN ×5 (06:11→22:49)
[2018-05-17 08:00] VITALS: BP 135/80; PULSE 74; RESP 18
[2018-05-17] MEDS: POLYETHYLENE GLYCOL 17 GM PACKET PO SCH ×2 (09:00→21:00)
[2018-05-17] MEDS: LORAZEPAM 0.5 MG TAB PO PRN ×2 (09:20→22:49)
[2018-05-17] MEDS: DOCUSATE SODIUM 100 MG CAP PO SCH ×2 (09:20→21:32)
[2018-05-17] MEDS: oxyCODONE (CR) 20 MG TAB [oxyCONTIN] PO SCH ×2 (09:20→21:33)
[2018-05-17] MEDS: ANASTROZOLE 1 MG TAB PO SCH (09:22)
[2018-05-17] MEDS: BENAZEPRIL 5 MG TAB PO SCH ×2 (09:23→21:35)
[2018-05-17] MEDS: AMLODIPINE 5 MG TAB PO SCH ×2 (09:23→21:35)
[2018-05-17] MEDS: INSULIN ASPART [NOVOLOG] 3 ML PEN SC SCH ×4 (09:24→21:00)
[2018-05-17 13:28] VITALS: BP 106/78; PULSE 88; RESP 18
--- NOTE | 2018-05-17 13:54 | CONS ---
Date/Time of Note Date/Time of Note DATE: 05/17/18 TIME: 13:53 Assessment/Plan Assessment/Plan Chief Complaint/Hosp Course METASTATIC BREAST Cancer ( PRIMARY IS IN THE L BREAST ) with MULTIPLE BONY METS, PULMONARY METS SEVERE T-L SPINE PAIN WITH DIFFICULTIES TO AMBULATE MRI T-L SPINE- Diffuse osseous metastatic disease of the visualized thoracic spine (T10 - T12), the entire lumbar spine, sacrum, and bilateral iliac bones. Expansion of the posterior T9 vertebral body resulting in central canal stenosis with AP diameter measuring 8 mm. CONT IV STEROIDS CONT AI PAIN CONTROL RADONC AND NEUROSURG F-UP MRI C - SPINE AND R HIP BONE SCAN -Multiple skeletal metastases in the axial and appendicular skeleton PLAN- CONT XRT R FEMORAL LESION Because of the extensive and widespread metastatic lesion involving both vestibular part and proximal femoral part of the right hip and even if any surgical procedure is considered, she will need a special custom made acetabular part and proximal femoral part, which can be done in a [facility], probably by oncologic orthopedic surgeon. Even if surgery is considered and she needs to be transferred to a [facility] for the higher level of care including evaluation and care by oncology orthopedic surgeon, it is possible that because of the extensiveness of the metastatic lesions further surgical treatment may not be the recommended. PAIN CONT OXYCONTIN Obesity. Weight loss 60 pounds during the last 2 years by diet PMS. Myopia. Anemia chronic disease. Anxiety disorder. Posttraumatic stress disorder. Pain in the left forearm with a history of fracture of ulna and radius. 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 Date/Type/Reason Admit Date/Time Apr 25, 2018 at 14:37 Initial Consult Date 04/25/18 [facility] Provider: RUSS JEROME MD 24 HR Interval Summary Free Text/Dictation ALL NOTED Exam/Review of Systems Vital Signs Vitals Vital Signs Date Temp Pulse Resp B/P (MAP) Pulse Ox O2 O2 Flow FiO2 Time Delivery Rate 05/17/18 98.0 88 18 106/78 98 13:28 (87) 05/16/18 Room Air 02:10 Intake and Output 05/16/18 05/16/18 05/17/18 1515:00 23:00 07:00 IntakeIntake Total 280 ml 240 ml BalanceBalance 280 ml 240 ml Exam Constitutional: alert, oriented, well developed, distress, frail; No non-verbal, No other Psych: anxiety, depression; No no complaints, No nl mood/affect, No confusion, No suicidal, No other Head: normocephalic, atraumatic; No lacerations, No hematomas, No other Eyes: EOMI, nl lids, PERRL; No nl conjunctiva, No nl sclera, No icteric, No fundi, disc, No other ENMT: tympanic membranes; No nl external ears & nose, No nl lips & teeth, No nl nasal mucosa & septum, No mucosa pink and moist, No intubated, No other Neck: supple, non-tender, jvd, bruits; No masses, No thyromegaly, No nuchal rigidity, No other Respiratory: clear to auscultation, normal air movement, crackles/rales, diminished breath sounds, respirations; No congested cough, No intercostal retraction, No labored breathing, No tactile fremitus, No wheezing, No other Cardiovascular: regular rate and rhythm, bruits, jugular venous distention (JVD), systolic murmur; No nl pulses, No diastolic murmur, No edema, No gallop, No irregular rhythm, No murmurs/extra sounds, No rub, No S3, No S4, No other Gastrointestinal: soft, non-tender, bowel sounds, distended, hepatomegaly, other (Obesity with thick fatty layer of the anterior abdominal wall with no rebound.); No nl liver, spleen, No ascites, No firm, No mass, No rebound or guarding, No splenomegaly, No surgical scars, No tender Genitourinary - Female: nl adnexae, nl external genitalia, CVA tenderness; No CMT, No uterus, No other Musculoskeletal: joint tenderness, muscle tone, muscle weakness, spine non- tender (Severe tenderness of the intrascapular area lumbosacral area with great difficulty to get up to move. 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: THERMAL SPRAY OPERATOR 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; No nl mental status, No nl speech, No nl strength, No confused, No DTR's symmetric, No focal weakness, No lethargic, No numbness, No reflexes, No unresponsive, No other Skin: nl turgor; No rash or lesions, No diaphoresis, No ecchymosis, No laceration, No puncture, No other Lymph: No nl lymph nodes, No enlarged, No nontender, No other BREAST- LARGE L BREAST MASS Medications Medications Current Medications Anastrozole (Arimidex) 1 mg DAILY PO Last administered on 05/17/18 09:22; Admin Dose 1 MG; Start 04/25/18 at 19:00 Zolpidem Tartrate (Ambien) 10 mg HS PRN PO INSOMNIA; Start 04/25/18 at 23:30 Lorazepam (Ativan) 0.5 mg TID PRN PO ANXIETY Last administered on 05/17/18 09:20; Admin Dose 0.5 MG; Start 04/25/18 at 23:30 Magnesium Hydroxide (Milk Of Mag) 30 ml DAILY PRN PO CONSTIPATION Last administered on 04/29/18at 09:04; Admin Dose 30 ML; Start 04/27/18 at 21:00 Morphine Sulfate (morphine) 3 mg Q4H PRN IV SEVERE PAIN LEVEL 7-10 Last administered on 05/17/18at 09:57; Admin Dose 3 MG; Start 04/27/18 at 21:00 Amlodipine Besylate (Norvasc) 5 mg BID PO Last administered on 05/17/18 09:23; Admin Dose 5 MG; Start 04/28/18 at 04:00 Polyethylene Glycol (Miralax) 17 gm BID PO Last administered on 05/16/18 09:30; Admin Dose 17 GM; Start 04/29/18 at 21:00 Docusate Sodium (Colace) 200 mg BID PO Last administered on 05/17/18 09:20; Admin Dose 200 MG; Start 04/29/18 at 21:00 Miscellaneous Information 1 ea NOTE XX ; Start 04/29/18 at 10:30 Glucose (Glutose) 15 gm Q15M PRN PO DECREASED GLUCOSE; Start 04/29/18 at 10:30 Glucose (Glutose) 22.5 gm Q15M PRN PO DECREASED GLUCOSE; Start 04/29/18 at 10:30 Dextrose (D50w Syringe) 25 ml Q15M PRN IV DECREASED GLUCOSE; Start 04/29/18 at 10:30 Dextrose (D50w Syringe) 50 ml Q15M PRN IV DECREASED GLUCOSE; Start 04/29/18 at 10:30 Glucagon (Glucagen) 1 mg Q15M PRN IM DECREASED GLUCOSE; Start 04/29/18 at 10:30 Glucose (Glutose) 15 gm Q15M PRN BUCCAL DECREASED GLUCOSE; Start 04/29/18 at 10:30 Benazepril HCl (Lotensin) 5 mg BID PO Last administered on 05/17/18at 09:23; Admin Dose 5 MG; Start 04/29/18 at 21:00 Oxycodone HCl (Oxycontin) 20 mg BID PO Last administered on 05/17/18at 09:20; Admin Dose 20 MG; Start 05/01/18 at 21:00 Diagnostic Test (Pha) (Accu-Chek) 1 ea 02 XX ; Start 05/14/18 at 02:00 Insulin Aspart (Novolog Insulin Pen) NOVOLOG *MILD* ALGORITHM WITH MEALS BEDTIME SC Last administered on 05/15/18at 17:53; Admin Dose 2 UNIT; Start 05/14/18 at 07:50 Dexamethasone (Decadron) 4 mg Q12 PO ; Start 05/17/18 at 21:00 Results Results 24 hrs Laboratory Tests Test 05/16/18 18:00 05/16/18 21:03 05/17/18 09:14 05/17/18 12:30 Bedside Glucose 114 170 115 119 DES DUNAWAY MD May 17, 2018 13:54
[2018-05-17 19:10] VITALS: BP 129/78; PULSE 83; RESP 20
[2018-05-17] MEDS ORDERED: DEXAMETHASONE 4 MG/ML 1 ML INJ PO SCH (21:00)
[2018-05-17] MEDS: DEXAMETHASONE 4 MG TAB PO SCH (21:30)
[2018-05-18] MEDS: morphine 4 MG/ML VIAL IV PRN ×5 (03:13→20:56)
[2018-05-18 07:13] VITALS: BP 122/73; PULSE 71; RESP 16
[2018-05-18] MEDS: INSULIN ASPART [NOVOLOG] 3 ML PEN SC SCH ×4 (07:50→21:00)
[2018-05-18] MEDS: oxyCODONE (CR) 20 MG TAB [oxyCONTIN] PO SCH ×2 (08:42→20:20)
[2018-05-18] MEDS: POLYETHYLENE GLYCOL 17 GM PACKET PO SCH ×3 (08:42→21:00)
[2018-05-18] MEDS: DOCUSATE SODIUM 100 MG CAP PO SCH ×2 (08:42→20:22)
[2018-05-18] MEDS: BENAZEPRIL 5 MG TAB PO SCH ×2 (08:43→20:21)
[2018-05-18] MEDS: DEXAMETHASONE 4 MG TAB PO SCH ×2 (08:43→20:22)
[2018-05-18] MEDS: AMLODIPINE 5 MG TAB PO SCH ×3 (08:43→20:22)
[2018-05-18] MEDS: ANASTROZOLE 1 MG TAB PO SCH (08:49)
[2018-05-18 14:00] VITALS: BP 126/71; PULSE 80; RESP 15
--- NOTE | 2018-05-18 18:55 | PN ---
Date/Time of Note Date/Time of Note DATE: 05/18/18 TIME: 18:53 Assessment/Plan VTE Prophylaxis Risk score (from Ns)>0 risk: 4 SCD applied (from Ns): No SCD contraindicated: low risk/ambulating Pharmacological prophylaxis: LMWH Lines/Catheters IV Catheter Type (from Nrs): Saline Lock Central line still needed: No Urinary Cath still in place: No Reason Cath still needed: urinary retention Assessment/Plan Assessment/Plan 1. Cancer of the left and left breast. Exact type at this time unknown.MULTIPLE BONY METS, PULMONARY METS 2. Severe pain in the interscapular and lumbar sacral area most probably metastatic lesion possible femoral fracture. pathologic fracture of T9 with 60% of loss of height. Neurosurgical consult planned. 3. Obesity. 4. Weight loss 60 pounds during the last 2 years by diet 5. PMS. 6. Myopia. 7. Anemia chronic disease. 8. Anxiety disorder. 9. Posttraumatic stress disorder. 10. Pain in the left forearm with a history of fracture of ulna and radius. 11. Tachycardia 12. Hypoxemia at night marginal improved after 2 L of nasal cannula oxygen. 13. Process at night. 14. 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 15.Pain syndrome. Subjective 24 Hr Interval Summary Free Text/Dictation Total of the left low back pain on the left hip pain mainly. Not to take her morphine sulfate. I am trying to do as much as they can. If his discomfort and sensation of emptiness in the back between my scapulas. Constitutional: chills, poor po; No no complaints, No improved, No diaphoresis, No disoriented, No febrile, No requiring IVF, No requiring O2, No other Eyes: No no complaints, No pain, No discharge, No redness, No visual change, No other ENT: No no complaints, No bleeding, No pain, No congestion, No discharge, No dysphagia, No sore throat, No other Respiratory: No no complaints, No pain, No cough, No pleuritic pain, No shortne ss of breath, No sputum, No wheezing, No other Cardiovascular: chest pain; No no complaints, No edema, No lightheadedness, No orthopenea, No palpitations, No paroxysmal nocturnal dyspnea, No other Gastrointestinal: No no complaints, No pain, No blood, No constipation, No decreased appetite, No diarrhea, No flatus, No nausea, No passing stool, No vomiting, No other Genitourinary: No no complaints, No bleeding, No dysuria, No discharge, No fl ank pain, No hematuria, No other Musculoskeletal: back pain, bone/joint pain, neck pain, other (Painful left more the right hip but significantly better comparing to the day of admission.); No no complaints, No restricted range of motion, No swelling Skin: bruising, erythema; No no complaints, No laceration, No pruritis, No rash, No skin lesions, No other Neurologic: confusion; No no complaints, No dizziness, No focal-weakness, No headache, No syncope, No seizure, No other Endocrine: dry skin Lymphatic: No no complaints, No adenopathy, No tender nodes, No lymphadema, No other Psychological: anxiety, depression; No no complaints, No nl mood/affect, No confusion, No suicidal, No other Exam/Review of Systems Vital Signs Vitals Vital Signs Date Temp Pulse Resp B/P (MAP) Pulse Ox O2 O2 Flow FiO2 Time Delivery Rate 05/18/18 98.1 80 15 126/71 100 Room Air 14:00 (89) Intake and Output 05/17/18 05/17/18 05/18/18 1414:59 22:59 06:59 IntakeIntake Total 400 ml 400 ml BalanceBalance 400 ml 400 ml Exam Constitutional: alert, oriented, well developed, frail, obese; No non-verbal, No distress, No other Psych: anxiety, depression; No no complaints, No nl mood/affect, No confusion, No suicidal, No other Head: normocephalic, atraumatic; No lacerations, No hematomas, No other Eyes: EOMI, nl lids, PERRL; No nl conjunctiva, No nl sclera, No icteric, No fundi, disc, No other ENMT: No nl external ears & nose, No nl lips & teeth, No nl nasal mucosa & septum, No mucosa pink and moist, No intubated, No tympanic membranes, No other Neck: jvd, bruits; No supple, No non-tender, No masses, No thyromegaly, No nuchal rigidity, No other Respiratory: normal air movement, diminished breath sounds; No clear to auscultation, No congested cough, No crackles/rales, No intercostal retraction, No labored breathing, No respirations, No tactile fremitus, No wheezing, No other Cardiovascular: regular rate and rhythm, nl pulses, bruits, systolic murmur; No diastolic murmur, No edema, No gallop, No irregular rhythm, No jugular venous distention (JVD), No murmurs/extra sounds, No rub, No S3, No S4, No other Gastrointestinal: soft; No nl liver, spleen, No non-tender, No ascites, No bowel sounds, No distended, No firm, No hepatomegaly, No mass, No rebound or guarding, No splenomegaly, No surgical scars, No tender, No other Musculoskeletal: joint tenderness, muscle tone, muscle weakness; No nl extremities to inspection, No nl gait and stance, No range of motion, No spine non-tender, No swelling, No other Extremities: normal pulses; No calf tenderness, No cyanosis, No clubbing, No edema, No pitting pedal edema, No palpable cord, No tenderness, No other 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: CT MANAGER 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; No nl mental status, No nl speech, No nl strength, No confused, No DTR's symmetric, No focal weakness, No lethargic, No numbness, No reflexes, No unresponsive, No other Skin: nl turgor; No rash or lesions, No diaphoresis, No ecchymosis, No laceration, No puncture, No other Lymph: No nl lymph nodes, No enlarged, No nontender, No other Medications Medications Current Medications Anastrozole (Arimidex) 1 mg DAILY PO Last administered on 05/18/18at 08:49; Admin Dose 1 MG; Start 04/25/18 at 19:00 Zolpidem Tartrate (Ambien) 10 mg HS PRN PO INSOMNIA; Start 04/25/18 at 23:30 Lorazepam (Ativan) 0.5 mg TID PRN PO ANXIETY Last administered on 05/17/18at 22:49; Admin Dose 0.5 MG; Start 04/25/18 at 23:30 Magnesium Hydroxide (Milk Of Mag) 30 ml DAILY PRN PO CONSTIPATION Last administered on 04/29/18at 09:04; Admin Dose 30 ML; Start 04/27/18 at 21:00 Morphine Sulfate (morphine) 3 mg Q4H PRN IV SEVERE PAIN LEVEL 7-10 Last administered on 05/18/18at 15:21; Admin Dose 3 MG; Start 04/27/18 at 21:00 Amlodipine Besylate (Norvasc) 5 mg BID PO Last administered on 05/18/18at 09:21; Admin Dose 5 MG; Start 04/28/18 at 04:00 Polyethylene Glycol (Miralax) 17 gm BID PO Last administered on 05/16/18at 09:30; Admin Dose 17 GM; Start 04/29/18 at 21:00 Docusate Sodium (Colace) 200 mg BID PO Last administered on 05/18/18at 08:42; Admin Dose 200 MG; Start 04/29/18 at 21:00 Miscellaneous Information 1 ea NOTE XX ; Start 04/29/18 at 10:30 Glucose (Glutose) 15 gm Q15M PRN PO DECREASED GLUCOSE; Start 04/29/18 at 10:30 Glucose (Glutose) 22.5 gm Q15M PRN PO DECREASED GLUCOSE; Start 04/29/18 at 10:30 Dextrose (D50w Syringe) 25 ml Q15M PRN IV DECREASED GLUCOSE; Start 04/29/18 at 10:30 Dextrose (D50w Syringe) 50 ml Q15M PRN IV DECREASED GLUCOSE; Start 04/29/18 at 10:30 Glucagon (Glucagen) 1 mg Q15M PRN IM DECREASED GLUCOSE; Start 04/29/18 at 10:30 Glucose (Glutose) 15 gm Q15M PRN BUCCAL DECREASED GLUCOSE; Start 04/29/18 at 10:30 Benazepril HCl (Lotensin) 5 mg BID PO Last administered on 05/18/18at 08:43; Admin Dose 5 MG; Start 04/29/18 at 21:00 Oxycodone HCl (Oxycontin) 20 mg BID PO Last administered on 05/18/18at 08:42; Admin Dose 20 MG; Start 05/01/18 at 21:00 Diagnostic Test (Pha) (Accu-Chek) 1 ea 02 XX ; Start 05/14/18 at 02:00 Insulin Aspart (Novolog Insulin Pen) NOVOLOG *MILD* ALGORITHM WITH MEALS BEDTIME SC Last administered on 05/15/18at 17:53; Admin Dose 2 UNIT; Start 05/14/18 at 07:50 Dexamethasone (Decadron) 4 mg Q12 PO Last administered on 05/18/18at 08:43; Admin Dose 4 MG; Start 05/17/18 at 21:30 Results Results 24 hrs Laboratory Tests Test 05/17/18 21:25 05/18/18 08:15 05/18/18 12:19 05/18/18 17:39 Bedside Glucose 117 133 145 140 RUSS JEROME MD May 18, 2018 18:55
[2018-05-18 20:03] VITALS: BP 116/68; PULSE 74; RESP 20
[2018-05-18] MEDS: LORAZEPAM 0.5 MG TAB PO PRN (20:55)
[2018-05-18] MEDS: ACCU-CHEK XX SCH (21:51)
--- NOTE | 2018-05-19 00:26 | CONS ---
Date/Time of Note Date/Time of Note DATE: 05/18/18 TIME: 17:25 VK LE Assessment/Plan Assessment/Plan Chief Complaint/Hosp Course METASTATIC BREAST Cancer ( PRIMARY IS IN THE L BREAST ) with MULTIPLE BONY METS, PULMONARY METS SEVERE T-L SPINE PAIN WITH DIFFICULTIES TO AMBULATE MRI T-L SPINE- Diffuse osseous metastatic disease of the visualized thoracic spine (T10 - T12), the entire lumbar spine, sacrum, and bilateral iliac bones. Expansion of the posterior T9 vertebral body resulting in central canal stenosis with AP diameter measuring 8 mm. CONT IV STEROIDS CONT AI PAIN CONTROL RADONC AND NEUROSURG F-UP MRI C - SPINE AND R HIP BONE SCAN -Multiple skeletal metastases in the axial and appendicular skeleton PLAN- CONT XRT R FEMORAL LESION Because of the extensive and widespread metastatic lesion involving both vestibular part and proximal femoral part of the right hip and even if any surgical procedure is considered, she will need a special custom made acetabular part and proximal femoral part, which can be done in a [facility], probably by oncologic orthopedic surgeon. Even if surgery is considered and she needs to be transferred to a [facility] for the higher level of care including evaluation and care by oncology orthopedic surgeon, it is possible that because of the extensiveness of the metastatic lesions further surgical treatment may not be the recommended. PAIN CONT OXYCONTIN Obesity. Weight loss 60 pounds during the last 2 years by diet PMS. Myopia. Anemia chronic disease. Anxiety disorder. Posttraumatic stress disorder. Pain in the left forearm with a history of fracture of ulna and radius. Tachycardia Incomplete data SOCIAL [employer]UES [employer] Consultation Date/Type/Reason Admit Date/Time Apr 25, 2018 at 14:37 Initial Consult Date 04/25/18 Type of Consultation: hemeon Requesting Provider: RUSS JEROME MD 24 HR Interval Summary Free Text/Dictation ALL NOTED NAD Exam/Review of Systems Vital Signs Vitals Vital Signs Date Temp Pulse Resp B/P (MAP) Pulse Ox O2 O2 Flow FiO2 Time Delivery Rate 05/18/18 98.3 74 20 116/68 96 Room Air 20:03 (84) Intake and Output 05/18/18 05/18/18 05/19/18 1515:00 23:00 07:00 IntakeIntake Total 380 ml 400 ml BalanceBalance 380 ml 400 ml Exam Constitutional: alert, oriented, well developed, distress, frail; No non-verbal, No other Psych: anxiety, depression; No no complaints, No nl mood/affect, No confusion, No suicidal, No other Head: normocephalic, atraumatic; No lacerations, No hematomas, No other Eyes: EOMI, nl lids, PERRL; No nl conjunctiva, No nl sclera, No icteric, No fundi, disc, No other ENMT: tympanic membranes; No nl external ears & nose, No nl lips & teeth, No nl nasal mucosa & septum, No mucosa pink and moist, No intubated, No other Neck: supple, non-tender, jvd, bruits; No masses, No thyromegaly, No nuchal rigidity, No other Respiratory: clear to auscultation, normal air movement, crackles/rales, dim inished breath sounds, respirations; No congested cough, No intercostal retraction, No labored breathing, No tactile fremitus, No wheezing, No other Cardiovascular: regular rate and rhythm, bruits, jugular venous distention (JVD), systolic murmur; No nl pulses, No diastolic murmur, No edema, No gallop, No irregular rhythm, No murmurs/extra sounds, No rub, No S3, No S4, No other Gastrointestinal: soft, non-tender, bowel sounds, distended, hepatomegaly, other (Obesity with thick fatty layer of the anterior abdominal wall with no rebound.); No nl liver, spleen, No ascites, No firm, No mass, No rebound or guarding, No splenomegaly, No surgical scars, No tender Genitourinary - Female: nl adnexae, nl external genitalia, CVA tenderness; No CMT, No uterus, No other Musculoskeletal: joint tenderness, muscle tone, muscle weakness, spine non- tender (Severe tenderness of the intrascapular area lumbosacral area with great difficulty to get up to move. 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: PELT SHEARER 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; No nl mental status, No nl speech, No nl strength, No confused, No DTR's symmetric, No focal weakness, No lethargic, No numbness, No reflexes, No unresponsive, No other Skin: nl turgor; No rash or lesions, No diaphoresis, No ecchymosis, No laceration, No puncture, No other Lymph: No nl lymph nodes, No enlarged, No nontender, No other BREAST- LARGE L BREAST MASS Medications Medications Current Medications Anastrozole (Arimidex) 1 mg DAILY PO Last administered on 05/18/18at 08:49; Admin Dose 1 MG; Start 04/25/18 at 19:00 Zolpidem Tartrate (Ambien) 10 mg HS PRN PO INSOMNIA; Start 04/25/18 at 23:30 Lorazepam (Ativan) 0.5 mg TID PRN PO ANXIETY Last administered on 05/18/18at 20:55; Admin Dose 0.5 MG; Start 04/25/18 at 23:30 Magnesium Hydroxide (Milk Of Mag) 30 ml DAILY PRN PO CONSTIPATION Last administered on 04/29/18at 09:04; Admin Dose 30 ML; Start 04/27/18 at 21:00 Morphine Sulfate (morphine) 3 mg Q4H PRN IV SEVERE PAIN LEVEL 7-10 Last administered on 05/18/18 20:56; Admin Dose 3 MG; Start 04/27/18 at 21:00 Amlodipine Besylate (Norvasc) 5 mg BID PO Last administered on 05/18/18at 20:22; Admin Dose 5 MG; Start 04/28/18 at 04:00 Polyethylene Glycol (Miralax) 17 gm BID PO Last administered on 05/16/18at 09:30; Admin Dose 17 GM; Start 04/29/18 at 21:00 Docusate Sodium (Colace) 200 mg BID PO Last administered on 05/18/18at 20:22; Admin Dose 200 MG; Start 04/29/18 at 21:00 Miscellaneous Information 1 ea NOTE XX ; Start 04/29/18 at 10:30 Glucose (Glutose) 15 gm Q15M PRN PO DECREASED GLUCOSE; Start 04/29/18 at 10:30 Glucose (Glutose) 22.5 gm Q15M PRN PO DECREASED GLUCOSE; Start 04/29/18 at 10:30 Dextrose (D50w Syringe) 25 ml Q15M PRN IV DECREASED GLUCOSE; Start 04/29/18 at 10:30 Dextrose (D50w Syringe) 50 ml Q15M PRN IV DECREASED GLUCOSE; Start 04/29/18 at 10:30 Glucagon (Glucagen) 1 mg Q15M PRN IM DECREASED GLUCOSE; Start 04/29/18 at 10:30 Glucose (Glutose) 15 gm Q15M PRN BUCCAL DECREASED GLUCOSE; Start 04/29/18 at 10:30 Benazepril HCl (Lotensin) 5 mg BID PO Last administered on 05/18/18at 20:21; Admin Dose 5 MG; Start 04/29/18 at 21:00 Oxycodone HCl (Oxycontin) 20 mg BID PO Last administered on 05/18/18at 20:20; Admin Dose 20 MG; Start 05/01/18 at 21:00 Diagnostic Test (Pha) (Accu-Chek) 1 ea 02 XX ; Start 05/14/18 at 02:00 Insulin Aspart (Novolog Insulin Pen) NOVOLOG *MILD* ALGORITHM WITH MEALS BEDTIME SC Last administered on 05/15/18at 17:53; Admin Dose 2 UNIT; Start 05/14/18 at 07:50 Dexamethasone (Decadron) 4 mg Q12 PO Last administered on 05/18/18at 20:22; Admin Dose 4 MG; Start 05/17/18 at 21:30 Results Results 24 hrs Laboratory Tests Test 05/18/18 08:15 05/18/18 12:19 05/18/18 17:39 05/18/18 20:19 Bedside Glucose 133 145 140 136 DES DUNAWAY MD May 19, 2018 00:26
[2018-05-19] MEDS: morphine 4 MG/ML VIAL IV PRN ×5 (02:16→21:19)
[2018-05-19 07:37] VITALS: BP 123/81; PULSE 76; RESP 16
[2018-05-19] MEDS: INSULIN ASPART [NOVOLOG] 3 ML PEN SC SCH ×4 (07:50→21:00)
[2018-05-19] MEDS: LORAZEPAM 0.5 MG TAB PO PRN ×2 (08:53→21:20)
[2018-05-19] MEDS: DOCUSATE SODIUM 100 MG CAP PO SCH ×2 (08:53→21:22)
[2018-05-19] MEDS: oxyCODONE (CR) 20 MG TAB [oxyCONTIN] PO SCH ×2 (08:54→21:20)
[2018-05-19] MEDS: DEXAMETHASONE 4 MG TAB PO SCH ×2 (08:54→21:22)
[2018-05-19] MEDS: POLYETHYLENE GLYCOL 17 GM PACKET PO SCH ×2 (08:54→21:23)
[2018-05-19] MEDS: BENAZEPRIL 5 MG TAB PO SCH ×2 (08:55→21:22)
[2018-05-19] MEDS: AMLODIPINE 5 MG TAB PO SCH ×2 (08:55→21:24)
[2018-05-19] MEDS: ANASTROZOLE 1 MG TAB PO SCH (08:57)
[2018-05-19 14:46] VITALS: BP 116/70; PULSE 89; RESP 16
[2018-05-19 20:00] VITALS: BP 105/66; PULSE 95; RESP 18
--- NOTE | 2018-05-19 20:13 | PN ---
Date/Time of Note Date/Time of Note DATE: 05/19/18 TIME: 20:11 Assessment/Plan VTE Prophylaxis Risk score (from Nsg)>0 risk: 4 SCD applied (from Nsg): Yes SCD contraindicated: low risk/ambulating Pharmacological prophylaxis: LMWH Lines/Catheters IV Catheter Type (from Nrsg): Saline Lock Central line still needed: No Urinary Cath still in place: No Reason Cath still needed: urinary retention Assessment/Plan Assessment/Plan 1. Cancer of the left and left breast. Exact type at this time unknown.MULTIPLE BONY METS, PULMONARY METS 2. Severe pain in the interscapular and lumbar sacral area most probably metast atic lesion possible femoral fracture. pathologic fracture of T9 with 60% of loss of height. Neurosurgical consult planned. 3. Obesity. 4. Weight loss 60 pounds during the last 2 years by diet 5. PMS. 6. Myopia. 7. Anemia chronic disease. 8. Anxiety disorder. 9. Posttraumatic stress disorder. 10. Pain in the left forearm with a history of fracture of ulna and radius. 11. Tachycardia 12. Hypoxemia at night marginal improved after 2 L of nasal cannula oxygen. 13. Process at night. 14. 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 15.Pain syndrome. Subjective 24 Hr Interval Summary Free Text/Dictation I feel better today. Stool lives in the bed. Intubated almost no pain. I am trying to extend as much as possible to use of morphine sulfate. Constitutional: poor po, requiring O2; No no complaints, No improved, No chills, No diaphoresis, No disoriented, No febrile, No requiring IVF, No other Eyes: No no complaints, No pain, No discharge, No redness, No visual change, No other ENT: congestion; No no complaints, No bleeding, No pain, No discharge, No dysphagia, No sore throat, No other Respiratory: shortness of breath; No no complaints, No pain, No cough, No pleuritic pain, No sputum, No wheezing, No other Cardiovascular: No no complaints, No chest pain, No edema, No lightheadedness, No orthopenea, No palpitations, No paroxysmal nocturnal dyspnea, No other Gastrointestinal: constipation; No no complaints, No pain, No blood, No decreased appetite, No diarrhea, No flatus, No nausea, No passing stool, No vomiting, No other Musculoskeletal: back pain, bone/joint pain, neck pain; No no complaints, No restricted range of motion, No swelling, No other Skin: No no complaints, No bruising, No erythema, No laceration, No pruritis, No rash, No skin lesions, No other Neurologic: dizziness (While getting up.); No no complaints, No confusion, No focal-weakness, No headache, No syncope, No seizure, No other Endocrine: dry skin Lymphatic: No no complaints, No adenopathy, No tender nodes, No lymphadema, No other Psychological: anxiety, depression; No no complaints, No nl mood/affect, No confusion, No suicidal, No other Exam/Review of Systems Vital Signs Vitals Vital Signs Date Temp Pulse Resp B/P (MAP) Pulse Ox O2 O2 Flow FiO2 Time Delivery Rate 05/19/18 97.9 89 16 116/70 96 Room Air 14:46 (85) Intake and Output 05/18/18 05/18/18 05/19/18 1515:00 23:00 07:00 IntakeIntake Total 380 ml 400 ml BalanceBalance 380 ml 400 ml Exam Constitutional: alert, oriented, well developed, frail, obese; No non-verbal, No distress, No other Psych: anxiety; No no complaints, No nl mood/affect, No confusion, No depression, No suicidal, No other Head: normocephalic, atraumatic Eyes: nl conjunctiva, EOMI, nl lids, nl sclera, PERRL, icteric, other; No fundi, disc ENMT: nl external ears & nose, nl lips & teeth; No nl nasal mucosa & septum, No mucosa pink and moist, No intubated, No tympanic membranes, No other Neck: jvd; No supple, No non-tender, No bruits, No masses, No thyromegaly, No nuchal rigidity, No other Respiratory: diminished breath sounds; No clear to auscultation, No normal air movement, No congested cough, No crackles/rales, No intercostal retraction, No labored breathing, No respirati ons, No tactile fremitus, No wheezing, No other Cardiovascular: regular rate and rhythm, bruits; No nl pulses, No diastolic murmur, No edema, No gallop, No irregular rhythm, No jugular venous distention (JVD), No murmurs/extra sounds, No rub, No systolic murmur, No S3, No S4, No other Gastrointestinal: soft, nl liver, spleen, non-tender; No ascites, No bowel sounds, No distended, No firm, No hepatomegaly, No mass, No rebound or guarding, No splenomegaly, No surgical scars, No tender, No other Musculoskeletal: nl extremities to inspection, nl gait and stance (Very difficult to move attempts to seat it exacerbates the pain in the back hip and interscapular area less intense than before.), joint tenderness, muscle tone, muscle weakness; No range of motion, No spine non-tender, No swelling, No other Extremities: normal pulses; No calf tenderness, No cyanosis, No clubbing, No edema, No pitting pedal edema, No palpable cord, No tenderness, No other Medications Medications Current Medications Anastrozole (Arimidex) 1 mg DAILY PO Last administered on 05/19/18 08:57; Admin Dose 1 MG; Start 04/25/18 at 19:00 Zolpidem Tartrate (Ambien) 10 mg HS PRN PO INSOMNIA; Start 04/25/18 at 23:30 Lorazepam (Ativan) 0.5 mg TID PRN PO ANXIETY Last administered on 05/19/18 08:53; Admin Dose 0.5 MG; Start 04/25/18 at 23:30 Magnesium Hydroxide (Milk Of Mag) 30 ml DAILY PRN PO CONSTIPATION Last administered on 04/29/18 09:04; Admin Dose 30 ML; Start 04/27/18 at 21:00 Morphine Sulfate (morphine) 3 mg Q4H PRN IV SEVERE PAIN LEVEL 7-10 Last administered on 05/19/18 17:36; Admin Dose 3 MG; Start 04/27/18 at 21:00 Amlodipine Besylate (Norvasc) 5 mg BID PO Last administered on 05/19/18 08:55; Admin Dose 5 MG; Start 04/28/18 at 04:00 Polyethylene Glycol (Miralax) 17 gm BID PO Last administered on 05/19/18 08:54; Admin Dose 17 GM; Start 04/29/18 at 21:00 Docusate Sodium (Colace) 200 mg BID PO Last administered on 05/19/18 08:53; Admin Dose 200 MG; Start 04/29/18 at 21:00 Miscellaneous Information 1 ea NOTE XX ; Start 04/29/18 at 10:30 Glucose (Glutose) 15 gm Q15M PRN PO DECREASED GLUCOSE; Start 04/29/18 at 10:30 Glucose (Glutose) 22.5 gm Q15M PRN PO DECREASED GLUCOSE; Start 04/29/18 at 10:30 Dextrose (D50w Syringe) 25 ml Q15M PRN IV DECREASED GLUCOSE; Start 04/29/18 at 10:30 Dextrose (D50w Syringe) 50 ml Q15M PRN IV DECREASED GLUCOSE; Start 04/29/18 at 10:30 Glucagon (Glucagen) 1 mg Q15M PRN IM DECREASED GLUCOSE; Start 04/29/18 at 10:30 Glucose (Glutose) 15 gm Q15M PRN BUCCAL DECREASED GLUCOSE; Start 04/29/18 at 10:30 Benazepril HCl (Lotensin) 5 mg BID PO Last administered on 05/19/18at 08:55; Admin Dose 5 MG; Start 04/29/18 at 21:00 Oxycodone HCl (Oxycontin) 20 mg BID PO Last administered on 05/19/18at 08:54; Admin Dose 20 MG; Start 05/01/18 at 21:00 Diagnostic Test (Pha) (Accu-Chek) 1 ea 02 XX ; Start 05/14/18 at 02:00 Insulin Aspart (Novolog Insulin Pen) NOVOLOG *MILD* ALGORITHM WITH MEALS BEDTIME SC Last administered on 05/15/18at 17:53; Admin Dose 2 UNIT; Start 05/14/18 at 07:50 Dexamethasone (Decadron) 4 mg Q12 PO Last administered on 05/19/18at 08:54; Admin Dose 4 MG; Start 05/17/18 at 21:30 Results Results 24 hrs Laboratory Tests Test 05/18/18 20:19 05/19/18 08:46 05/19/18 12:47 05/19/18 17:25 Bedside Glucose 136 115 116 134 RUSS JEROME MD May 19, 2018 20:13
--- NOTE | 2018-05-19 21:44 | CONS ---
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 Expansion of the posterior T9 vertebral body resulting in central canal stenosis with AP diameter measuring 8 mm. CONT PO STEROIDS , PT IS ON TAPER CONT AI PAIN CONTROL RADONC AND F-UP MRI C - SPINE AND R HIP NOTED BONE SCAN -Multiple skeletal metastases in the axial and appendicular skeleton PLAN- COMPLETE XRT R FEMORAL LESION Because of the extensive and widespread metastatic lesion involving both vestibular part and proximal femoral part of the right hip and even if any surgical procedure is considered, she will need a special custom made acetabular part and proximal femoral part, which can be done in a big [facility], probably by oncologic orthopedic surgeon. Even if surgery is considered and she needs to be transferred [facility] for the higher level of care including evaluation and care by oncology orthopedic surgeon, it is possible that because of the extensiveness of the metastatic lesions further surgical treatment may not be the recommended. PAIN CONT OXYCONTIN Obesity. Weight loss 60 pounds during the last 2 years by diet PMS. Myopia. Anemia chronic disease. Anxiety disorder. Posttraumatic stress disorder. Pain in the left forearm with a history of fracture of ulna and radius. 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 Consultation Date/Type/Reason Admit Date/Time Apr 25, 2018 at 14:37 Initial Consult Date 04/25/18 Type of Consultation: hemeon Requesting Provider: RUSS JEROME MD 24 HR Interval Summary Free Text/Dictation ALL NOTED NO NEW EVENTS COMPLETING XRT NEXT WE Exam/Review of Systems Vital Signs Vitals Vital Signs Date Temp Pulse Resp B/P (MAP) Pulse Ox O2 O2 Flow FiO2 Time Delivery Rate 05/19/18 98.3 95 18 105/66 95 20:00 (79) 05/19/18 Room Air 14:46 Intake and Output 05/18/18 05/18/18 05/19/18 1515:00 23:00 07:00 IntakeIntake Total 380 ml 400 ml BalanceBalance 380 ml 400 ml Exam Constitutional: alert, oriented, well developed, distress, frail; No non-verbal, No other Psych: anxiety, depression; No no complaints, No nl mood/affect, No confusion, No suicidal, No other Head: normocephalic, atraumatic; No lacerations, No hematomas, No other Eyes: EOMI, nl lids, PERRL; No nl conjunctiva, No nl sclera, No icteric, No fundi, disc, No other ENMT: tympanic membranes; No nl external ears & nose, No nl lips & teeth, No nl nasal mucosa & septum, No mucosa pink and moist, No intubated, No other Neck: supple, non-tender, jvd, bruits; No masses, No thyromegaly, No nuchal rigidity, No other Respiratory: clear to auscultation, normal air movement, crackles/rales, diminished breath sounds, respirations; No congested cough, No intercostal retraction, No labored breathing, No tactile fremitus, No wheezing, No other Cardiovascular: regular rate and rhythm, bruits, jugular venous distention (JVD), systolic murmur; No nl pulses, No diastolic murmur, No edema, No gallop, No irregular rhythm, No murmurs/extra sounds, No rub, No S3, No S4, No other Gastrointestinal: soft, non-tender, bowel sounds, distended, hepatomegaly, other (Obesity with thick fatty layer of the anterior abdominal wall with no rebound.); No nl liver, spleen, No ascites, No firm, No mass, No rebound or guarding, No splenomegaly, No surgical scars, No tender Genitourinary - Female: nl adnexae, nl external genitalia, CVA tenderness; No CMT, No uterus, No other Musculoskeletal: joint tenderness, muscle tone, muscle weakness, spine non- tender (Severe tenderness of the intrascapular area lumbosacral area with great difficulty to get up to move. 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; No nl mental status, No nl speech, No nl strength, No confused, No DTR's symmetric, No focal weakness, No lethargic, No numbness, No reflexes, No unresponsive, No other Skin: nl turgor; No rash or lesions, No diaphoresis, No ecchymosis, No laceration, No puncture, No other Lymph: No nl lymph nodes, No enlarged, No nontender, No other BREAST- LARGE L BREAST MASS Medications Medications Current Medications Anastrozole (Arimidex) 1 mg DAILY PO Last administered on 05/19/18 08:57; Admin Dose 1 MG; Start 04/25/18 at 19:00 Zolpidem Tartrate (Ambien) 10 mg HS PRN PO INSOMNIA; Start 04/25/18 at 23:30 Lorazepam (Ativan) 0.5 mg TID PRN PO ANXIETY Last administered on 05/19/18 21:20; Admin Dose 0.5 MG; Start 04/25/18 at 23:30 Magnesium Hydroxide (Milk Of Mag) 30 ml DAILY PRN PO CONSTIPATION Last a dministered on 04/29/18 09:04; Admin Dose 30 ML; Start 04/27/18 at 21:00 Morphine Sulfate (morphine) 3 mg Q4H PRN IV SEVERE PAIN LEVEL 7-10 Last administered on 05/19/18 21:19; Admin Dose 3 MG; Start 04/27/18 at 21:00 Amlodipine Besylate (Norvasc) 5 mg BID PO Last administered on 05/19/18 21:24; Admin Dose 5 MG; Start 04/28/18 at 04:00 Polyethylene Glycol (Miralax) 17 gm BID PO Last administered on 05/19/18 21:23; Admin Dose 17 GM; Start 04/29/18 at 21:00 Docusate Sodium (Colace) 200 mg BID PO Last administered on 05/19/18 21:22; Admin Dose 200 MG; Start 04/29/18 at 21:00 Miscellaneous Information 1 ea NOTE XX ; Start 04/29/18 at 10:30 Glucose (Glutose) 15 gm Q15M PRN PO DECREASED GLUCOSE; Start 04/29/18 at 10:30 Glucose (Glutose) 22.5 gm Q15M PRN PO DECREASED GLUCOSE; Start 04/29/18 at 10:30 Dextrose (D50w Syringe) 25 ml Q15M PRN IV DECREASED GLUCOSE; Start 04/29/18 at 10:30 Dextrose (D50w Syringe) 50 ml Q15M PRN IV DECREASED GLUCOSE; Start 04/29/18 at 10:30 Glucagon (Glucagen) 1 mg Q15M PRN IM DECREASED GLUCOSE; Start 04/29/18 at 10:30 Glucose (Glutose) 15 gm Q15M PRN BUCCAL DECREASED GLUCOSE; Start 04/29/18 at 10:30 Benazepril HCl (Lotensin) 5 mg BID PO Last administered on 05/19/18at 21:22; Admin Dose 5 MG; Start 04/29/18 at 21:00 Oxycodone HCl (Oxycontin) 20 mg BID PO Last administered on 05/19/18at 21:20; Admin Dose 20 MG; Start 05/01/18 at 21:00 Diagnostic Test (Pha) (Accu-Chek) 1 ea 02 XX ; Start 05/14/18 at 02:00 Insulin Aspart (Novolog Insulin Pen) NOVOLOG *MILD* ALGORITHM WITH MEALS BEDTIME SC Last administered on 05/15/18at 17:53; Admin Dose 2 UNIT; Start 05/14/18 at 07:50 Dexamethasone (Decadron) 4 mg Q12 PO Last administered on 05/19/18at 21:22; Admin Dose 4 MG; Start 05/17/18 at 21:30 Results Results 24 hrs Laboratory Tests Test 05/19/18 08:46 05/19/18 12:47 05/19/18 17:25 05/19/18 21:28 Bedside Glucose 115 116 134 117 DES DUNAWAY MD May 19, 2018 21:44
[2018-05-20] MEDS: ACCU-CHEK XX SCH (02:00)
[2018-05-20 02:07] VITALS: BP 117/68; PULSE 92; RESP 18
[2018-05-20] MEDS: morphine 4 MG/ML VIAL IV PRN ×4 (02:11→20:59)
[2018-05-20] MEDS: LORAZEPAM 0.5 MG TAB PO PRN ×2 (06:55→20:55)
[2018-05-20] MEDS: INSULIN ASPART [NOVOLOG] 3 ML PEN SC SCH ×4 (07:50→22:25)
[2018-05-20 09:12] VITALS: BP 115/82; PULSE 91; RESP 18
[2018-05-20] MEDS: DEXAMETHASONE 4 MG TAB PO SCH (09:22)
[2018-05-20] MEDS: POLYETHYLENE GLYCOL 17 GM PACKET PO SCH ×2 (09:22→21:00)
[2018-05-20] MEDS: oxyCODONE (CR) 20 MG TAB [oxyCONTIN] PO SCH ×2 (09:22→22:30)
[2018-05-20] MEDS: BENAZEPRIL 5 MG TAB PO SCH ×2 (09:23→20:55)
[2018-05-20] MEDS: DOCUSATE SODIUM 100 MG CAP PO SCH ×2 (09:23→20:55)
[2018-05-20] MEDS: AMLODIPINE 5 MG TAB PO SCH ×2 (09:23→20:55)
[2018-05-20] MEDS: ANASTROZOLE 1 MG TAB PO SCH (09:24)
[2018-05-20 15:03] VITALS: BP 119/73; PULSE 88; RESP 18
--- NOTE | 2018-05-20 18:09 | CONS ---
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 Expansion of the posterior T9 vertebral body resulting in central canal stenosis with AP diameter measuring 8 mm. CONT PO STEROIDS , PT IS ON TAPER CONT AI PAIN CONTROL RADONC AND F-UP MRI C - SPINE AND R HIP NOTED BONE SCAN -Multiple skeletal metastases in the axial and appendicular skeleton COMPLETED XRT PLAN CHEMO R FEMORAL LESION Because of the extensive and widespread metastatic lesion involving both vestibular part and proximal femoral part of the right hip and even if any surgical procedure is considered, she will need a special custom made acetabular part and proximal femoral part, which can be done in a big [facility], probably by oncologic orthopedic surgeon. Even if surgery is considered and she needs to be transferred to a [facility] for the higher level of care including evaluation and care by oncology orthopedic surgeon, it is possible that because of the extensiveness of the metastatic lesions further surgical treatment may not be the recommended. PAIN CONT OXYCONTIN Obesity. Weight loss 60 pounds during the last 2 years by diet PMS. Myopia. Anemia chronic disease. Anxiety disorder. Posttraumatic stress disorder. Pain in the left forearm with a history of fracture of ulna and radius. 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 Consultation Date/Type/Reason Admit Date/Time Apr 25, 2018 at 14:37 Initial Consult Date 04/25/18 Type of Consultation: hemeon Requesting Provider: RUSS JEROME MD 24 HR Interval Summary Free Text/Dictation ALL NOTED PAIN- BETTER COMPLETED XRT TODAY MESSAGE LEFT TO REVERBERATORY FURNACE OPERATOR Exam/Review of Systems Vital Signs Vitals Vital Signs Date Temp Pulse Resp B/P (MAP) Pulse Ox O2 O2 Flow FiO2 Time Delivery Rate 05/20/18 98.1 88 18 119/73 96 Room Air 15:03 (88) Intake and Output 05/19/18 05/19/18 05/20/18 1515:00 23:00 07:00 IntakeIntake Total 300 ml 660 ml BalanceBalance 300 ml 660 ml Exam Constitutional: alert, oriented, well developed, distress, frail; No non-verbal, No other Psych: anxiety, depression; No no complaints, No nl mood/affect, No confusion, No suicidal, No other Head: normocephalic, atraumatic; No lacerations, No hematomas, No other Eyes: EOMI, nl lids, PERRL; No nl conjunctiva, No nl sclera, No icteric, No fundi, disc, No other ENMT: tympanic membranes; No nl external ears & nose, No nl lips & teeth, No nl nasal mucosa & septum, No mucosa pink and moist, No intubated, No other Neck: supple, non-tender, jvd, bruits; No masses, No thyromegaly, No nuchal rigidity, No other Respiratory: clear to auscultation, normal air movement, crackles/rales, diminished breath sounds, respirations; No congested cough, No intercostal retraction, No labored breathing, No tactile fremitus, No wheezing, No other Cardiovascular: regular rate and rhythm, bruits, jugular venous distention (JVD), systolic murmur; No nl pulses, No diastolic murmur, No edema, No gallop, No irregular rhythm, No murmurs/extra sounds, No rub, No S3, No S4, No other Gastrointestinal: soft, non-tender, bowel sounds, distended, hepatomegaly, other (Obesity with thick fatty layer of the anterior abdominal wall with no rebound.); No nl liver, spleen, No ascites, No firm, No mass, No rebound or guarding, No splenomegaly, No surgical scars, No tender Genitourinary - Female: nl adnexae, nl external genitalia, CVA tenderness; No CMT, No uterus, No other Musculoskeletal: joint tenderness, muscle tone, muscle weakness, spine non- tender (Severe tenderness of the intrascapular area lumbosacral area with great difficulty to get up to move. 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; No nl mental status, No nl speech, No nl strength, No confused, No DTR's symmetric, No focal weakness, No lethargic, No numbness, No reflexes, No unresponsive, No other Skin: nl turgor; No rash or lesions, No diaphoresis, No ecchymosis, No laceration, No puncture, No other Lymph: No nl lymph nodes, No enlarged, No nontender, No other BREAST- LARGE L BREAST MASS Medications Medications Current Medications Anastrozole (Arimidex) 1 mg DAILY PO Last administered on 05/20/18at 09:24; Admin Dose 1 MG; Start 04/25/18 at 19:00 Zolpidem Tartrate (Ambien) 10 mg HS PRN PO INSOMNIA; Start 04/25/18 at 23:30 Lorazepam (Ativan) 0.5 mg TID PRN PO ANXIETY Last administered on 05/20/18 06:55; Admin Dose 0.5 MG; Start 04/25/18 at 23:30 Magnesium Hydroxide (Milk Of Mag) 30 ml DAILY PRN PO CONSTIPATION Last administered on 04/29/18at 09:04; Admin Dose 30 ML; Start 04/27/18 at 21:00 Morphine Sulfate (morphine) 3 mg Q4H PRN IV SEVERE PAIN LEVEL 7-10 Last administered on 05/20/18at 14:45; Admin Dose 3 MG; Start 04/27/18 at 21:00 Amlodipine Besylate (Norvasc) 5 mg BID PO Last administered on 05/20/18 09:23; Admin Dose 5 MG; Start 04/28/18 at 04:00 Polyethylene Glycol (Miralax) 17 gm BID PO Last administered on 05/20/18at 09:22; Admin Dose 17 GM; Start 04/29/18 at 21:00 Docusate Sodium (Colace) 200 mg BID PO Last administered on 05/20/18 09:23; Admin Dose 200 MG; Start 04/29/18 at 21:00 Miscellaneous Information 1 ea NOTE XX ; Start 04/29/18 at 10:30 Glucose (Glutose) 15 gm Q15M PRN PO DECREASED GLUCOSE; Start 04/29/18 at 10:30 Glucose (Glutose) 22.5 gm Q15M PRN PO DECREASED GLUCOSE; Start 04/29/18 at 10:30 Dextrose (D50w Syringe) 25 ml Q15M PRN IV DECREASED GLUCOSE; Start 04/29/18 at 10:30 Dextrose (D50w Syringe) 50 ml Q15M PRN IV DECREASED GLUCOSE; Start 04/29/18 at 10:30 Glucagon (Glucagen) 1 mg Q15M PRN IM DECREASED GLUCOSE; Start 04/29/18 at 10:30 Glucose (Glutose) 15 gm Q15M PRN BUCCAL DECREASED GLUCOSE; Start 04/29/18 at 10:30 Benazepril HCl (Lotensin) 5 mg BID PO Last administered on 05/20/18at 09:23; Admin Dose 5 MG; Start 04/29/18 at 21:00 Oxycodone HCl (Oxycontin) 20 mg BID PO Last administered on 05/20/18at 09:22; Admin Dose 20 MG; Start 05/01/18 at 21:00 Diagnostic Test (Pha) (Accu-Chek) 1 ea 02 XX ; Start 05/14/18 at 02:00 Insulin Aspart (Novolog Insulin Pen) NOVOLOG *MILD* ALGORITHM WITH MEALS BEDTIME SC Last administered on 05/15/18at 17:53; Admin Dose 2 UNIT; Start at 07:50 Dexamethasone (Decadron) 2 mg Q12 PO ; Start 05/20/18 at 21:00 Results Result Diagram: 05/20/18 0429 05/20/18 0429 Results 24 hrs Laboratory Tests Test 05/19/18 21:28 05/20/18 04:29 05/20/18 09:20 05/20/18 12:42 Bedside Glucose 117 87 104 White Blood Count 5.7 Red Blood Count 3.86 L Hemoglobin 12.0 Hematocrit 37.5 Mean Corpuscular 97.2 Volume Mean Corpuscular 31.1 Hemoglobin Mean Corpuscular 32.0 Hemoglobin Concent Red Cell 15.2 H Distribution Width Platelet Count 174 # Mean Platelet Volume 9.2 Immature 0.500 H Granulocytes % Neutrophils % 89.3 H Lymphocytes % 3.0 L Monocytes % 6.3 Eosinophils % 0.7 Basophils % 0.2 Nucleated Red Blood 0.0 Cells % Immature 0.030 Granulocytes # Neutrophils # 5.1 Lymphocytes # 0.2 L Monocytes # 0.4 Eosinophils # 0.0 Basophils # 0.0 Nucleated Red Blood 0.0 Cells # Sodium Level 135 Potassium Level 5.0 Chloride Level 104 Carbon Dioxide Level 28 Anion Gap 3 L Blood Urea Nitrogen 25 H Creatinine 0.47 Est Glomerular > 60 Filtrat Rate mL/min Glucose Level 143 Calcium Level 7.6 L Total Bilirubin 0.2 Direct Bilirubin 0.00 Indirect Bilirubin 0.2 Aspartate Amino 23 Transf (AST/SGOT) Alanine 33 Aminotransferase (AL T/SGPT) Alkaline Phosphatase 462 H Total Protein 5.3 L Albumin 2.9 L Globulin 2.40 Albumin/Globulin 1.20 Ratio Test 05/20/18 17:46 Bedside Glucose 121 DES DUNAWAY MD May 20, 2018 18:09
[2018-05-20 20:44] VITALS: BP 106/71; PULSE 85; RESP 18
[2018-05-20] MEDS: DEXAMETHASONE 2 MG TAB PO SCH (20:55)
--- NOTE | 2018-05-20 21:04 | PN ---
Date/Time of Note Date/Time of Note DATE: 05/20/18 TIME: 21:00 Assessment/Plan VTE Prophylaxis Risk score (from Nsg)>0 risk: 3 SCD applied (from Ns): No SCD contraindicated: low risk/ambulating Pharmacological prophylaxis: LMWH Lines/Catheters IV Catheter Type (from Nrs): [place] [employer] line still needed: No Urinary Cath still in place: No Reason Cath still needed: urinary retention Assessment/Plan Assessment/Plan 1. Cancer of the left and left breast. Exact type at this time unknown.MULTIPLE BONY METS, PULMONARY METS; today was her last dose of chemotherapy. We discussed with Dr. Cleveland about future plan. 2. Severe pain in the interscapular and lumbar sacral area most probably metastatic lesion possible femoral fracture. pathologic fracture of T9 with 60% of loss of height. Neurosurgical consult planned. 3. Obesity. 4. Weight loss 60 pounds during the last 2 years by diet 5. PMS. 6. Myopia. 7. Anemia chronic disease. 8. Anxiety disorder. 9. Posttraumatic stress disorder. 10. Pain in the left forearm with a history of fracture of ulna and radius. 11. Tachycardia 12. Hypoxemia at night marginal improved after 2 L of nasal cannula oxygen. 13. Process at night. 14. 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 15.Pain syndrome. Subjective 24 Hr Interval Summary Free Text/Dictation I am able to get up myself. Area to the pain. But I do not want to get the morphine every time. If he was given time me to try to strengthen him a position balance myself and reviewed able to stand up. The patient was able to get up approach to the sink washing her hands turning back carefully adjusting herself to sitting right position not to exacerbate the pain. Constitutional: improved, poor po; No no complaints, No chills, No diaphoresis, No disoriented, No febrile, No requiring IVF, No requiring O2, No other Eyes: No no complaints, No pain, No discharge, No redness, No visual change, No other ENT: congestion; No no complaints, No bleeding, No pain, No discharge, No dysphagia, No sore throat, No other Respiratory: cough, shortness of breath; No no complaints, No pain, No pleuritic pain, No sputum, No wheezing, No other Cardiovascular: lightheadedness; No no complaints, No chest pain, No edema, No orthopenea, No palpitations, No paroxysmal nocturnal dyspnea, No other Gastrointestinal: constipation, decreased appetite; No no complaints, No pain, No blood, No diarrhea, No flatus, No nausea, No passing stool, No vomiting, No other Genitourinary: dysuria; No no complaints, No bleeding, No discharge, No flank pain, No hematuria, No other Musculoskeletal: back pain, bone/joint pain, neck pain Skin: laceration, pruritis; No no complaints, No bruising, No erythema, No rash, No skin lesions, No other Neurologic: dizziness, headache; No no complaints, No confusion, No focal-weakness, No syncope, No seizure, No other Psychological: anxiety, depression; No no complaints, No nl mood/affect, No confusion, No suicidal, No other Exam/Review of Systems Vital Signs Vitals Vital Signs Date Temp Pulse Resp B/P (MAP) Pulse Ox O2 O2 Flow FiO2 Time Delivery Rate 05/20/18 97.6 85 18 106/71 96 20:44 (83) 05/20/18 Room Air 15:03 Intake and Output 05/19/18 05/19/18 05/20/18 1515:00 23:00 07:00 IntakeIntake Total 300 ml 660 ml BalanceBalance 300 ml 660 ml Exam Constitutional: alert, oriented, well developed, distress, frail, obese; No non-verbal, No other Psych: anxiety; No no complaints, No nl mood/affect, No confusion, No depression, No suicidal, No other Head: normocephalic, atraumatic; No lacerations, No hematomas, No other Eyes: nl conjunctiva, EOMI, nl lids, PERRL, other (2. Crying remembering her grandchildren and family in the [facility]. He takes significant effort to help her to control her emotions.); No nl sclera, No icteric, No fundi, disc ENMT: nl external ears & nose, nl lips & teeth, nl nasal mucosa & septum; No mucosa pink and moist, No intubated, No tympanic membranes, No other Neck: non-tender, jvd, bruits, nuchal rigidity; No supple, No masses, No thyromegaly, No other Respiratory: clear to auscultation, normal air movement, diminished breath sounds; No crackles/rales, No intercostal retraction, No labored breathing, No respirations, No tactile fremitus, No wheezing, No other Cardiovascular: regular rate and rhythm, nl pulses, bruits; No diastolic murmur, No edema, No gallop, No irregular rhythm, No jugular venous distention (JVD), No murmurs/extra sounds, No rub, No systolic murmur, No S3, No S4, No other Gastrointestinal: soft, nl liver, spleen, non-tender, bowel sounds, distended; No ascites, No firm, No hepatomegaly, No mass, No rebound or guarding, No splenomegaly, No surgical scars, No tender, No other Genitourinary - Female: No nl adnexae, No nl external genitalia, No CMT, No CVA tenderness, No uterus, No other Musculoskeletal: nl gait and stance (Difficult to rule straight due to the pain and stiffness mainly of the back and upper chest.), joint tenderness, muscle tone, muscle weakness; No nl extremities to inspection, No range of motion, No spine non-tender, No swelling, No other Extremities: normal pulses 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: 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, numbness; No nl mental status, No nl speech, No nl strength, No confused, No DTR's symmetric, No focal weakness, No lethargic, No reflexes, No unresponsive, No other Skin: nl turgor; No rash or lesions, No diaphoresis, No ecchymosis, No laceration, No puncture, No other Lymph: No nl lymph nodes, No enlarged, No nontender, No other Medications Medications Current Medications Anastrozole (Arimidex) 1 mg DAILY PO Last administered on 05/20/18at 09:24; Admin Dose 1 MG; Start 04/25/18 at 19:00 Zolpidem Tartrate (Ambien) 10 mg HS PRN PO INSOMNIA; Start 04/25/18 at 23:30 Lorazepam (Ativan) 0.5 mg TID PRN PO ANXIETY Last administered on 05/20/18at 06:55; Admin Dose 0.5 MG; Start 04/25/18 at 23:30 Magnesium Hydroxide (Milk Of Mag) 30 ml DAILY PRN PO CONSTIPATION Last administered on 04/29/18at 09:04; Admin Dose 30 ML; Start 04/27/18 at 21:00 Morphine Sulfate (morphine) 3 mg Q4H PRN IV SEVERE PAIN LEVEL 7-10 Last adm inistered on 05/20/18at 14:45; Admin Dose 3 MG; Start 04/27/18 at 21:00 Amlodipine Besylate (Norvasc) 5 mg BID PO Last administered on 05/20/18 09:23; Admin Dose 5 MG; Start 04/28/18 at 04:00 Polyethylene Glycol (Miralax) 17 gm BID PO Last administered on 05/20/18 09:22; Admin Dose 17 GM; Start 04/29/18 at 21:00 Docusate Sodium (Colace) 200 mg BID PO Last administered on 05/20/18 09:23; Ad min Dose 200 MG; Start 04/29/18 at 21:00 Miscellaneous Information 1 ea NOTE XX ; Start 04/29/18 at 10:30 Glucose (Glutose) 15 gm Q15M PRN PO DECREASED GLUCOSE; Start 04/29/18 at 10:30 Glucose (Glutose) 22.5 gm Q15M PRN PO DECREASED GLUCOSE; Start 04/29/18 at 10:30 Dextrose (D50w Syringe) 25 ml Q15M PRN IV DECREASED GLUCOSE; Start 04/29/18 at 10:30 Dextrose (D50w Syringe) 50 ml Q15M PRN IV DECREASED GLUCOSE; Start 04/29/18 at 10:30 Glucagon (Glucagen) 1 mg Q15M PRN IM DECREASED GLUCOSE; Start 04/29/18 at 10:30 Glucose (Glutose) 15 gm Q15M PRN BUCCAL DECREASED GLUCOSE; Start 04/29/18 at 10:30 Benazepril HCl (Lotensin) 5 mg BID PO Last administered on 05/20/18at 09:23; Admin Dose 5 MG; Start 04/29/18 at 21:00 Oxycodone HCl (Oxycontin) 20 mg BID PO Last administered on 05/20/18 09:22; Admin Dose 20 MG; Start 05/01/18 at 21:00 Diagnostic Test (Pha) (Accu-Chek) 1 ea 02 XX ; Start 05/14/18 at 02:00 Insulin Aspart (Novolog Insulin Pen) NOVOLOG *MILD* ALGORITHM WITH MEALS B EDTIME SC Last administered on 05/15/18at 17:53; Admin Dose 2 UNIT; Start 05/14/18 at 07:50 Dexamethasone (Decadron) 2 mg Q12 PO ; Start 05/20/18 at 21:00 Results Result Diagram: 05/20/18 0429 05/20/18 0429 Results 24 hrs Laboratory Tests Test 05/19/18 21:28 05/20/18 04:29 05/20/18 09:20 05/20/18 12:42 Bedside Glucose 117 87 104 White Blood Count 5.7 Red Blood Count 3.86 L Hemoglobin 12.0 Hematocrit 37.5 Mean Corpuscular 97.2 Volume Mean Corpuscular 31.1 Hemoglobin Mean Corpuscular 32.0 Hemoglobin Concent Red Cell 15.2 H Distribution Width Platelet Count 174 # Mean Platelet Volume 9.2 Immature 0.500 H Granulocytes % Neutrophils % 89.3 H Lymphocytes % 3.0 L Monocytes % 6.3 Eosinophils % 0.7 Basophils % 0.2 Nucleated Red Blood 0.0 Cells % Immature 0.030 Granulocytes # Neutrophils # 5.1 Lymphocytes # 0.2 L Monocytes # 0.4 Eosinophils # 0.0 Basophils # 0.0 Nucleated Red Blood 0.0 Cells # Sodium Level 135 Potassium Level 5.0 Chloride Level 104 Carbon Dioxide Level 28 Anion Gap 3 L Blood Urea Nitrogen 25 H Creatinine 0.47 Est Glomerular > 60 Filtrat Rate mL/min Glucose Level 143 Calcium Level 7.6 L Total Bilirubin 0.2 Direct Bilirubin 0.00 Indirect Bilirubin 0.2 Aspartate Amino 23 Transf (AST/SGOT) Alanine 33 Aminotransferase (AL T/SGPT) Alkaline Phosphatase 462 H Total Protein 5.3 L Albumin 2.9 L Globulin 2.40 Albumin/Globulin 1.20 Ratio Test 05/20/18 17:46 Bedside Glucose 121 RUSS JEROME MD May 20, 2018 21:04
[2018-05-21] MEDS: morphine 4 MG/ML VIAL IV PRN ×5 (01:36→22:03)
[2018-05-21] MEDS: ACCU-CHEK XX SCH (02:00)
[2018-05-21 02:09] VITALS: BP 126/72; PULSE 91; RESP 18
[2018-05-21] MEDS: INSULIN ASPART [NOVOLOG] 3 ML PEN SC SCH ×4 (07:50→21:00)
[2018-05-21 08:25] VITALS: BP 125/76; PULSE 83; RESP 18
[2018-05-21] MEDS: DEXAMETHASONE 2 MG TAB PO SCH ×2 (08:34→21:05)
[2018-05-21] MEDS: DOCUSATE SODIUM 100 MG CAP PO SCH ×2 (08:34→21:04)
[2018-05-21] MEDS: BENAZEPRIL 5 MG TAB PO SCH ×2 (08:35→22:03)
[2018-05-21] MEDS: oxyCODONE (CR) 20 MG TAB [oxyCONTIN] PO SCH ×2 (08:35→21:05)
[2018-05-21] MEDS: AMLODIPINE 5 MG TAB PO SCH ×2 (08:35→21:04)
[2018-05-21] MEDS: POLYETHYLENE GLYCOL 17 GM PACKET PO SCH ×2 (08:36→21:05)
[2018-05-21] MEDS: ANASTROZOLE 1 MG TAB PO SCH (08:36)
[2018-05-21 15:29] VITALS: BP 109/69; PULSE 87; RESP 18
--- NOTE | 2018-05-21 15:53 | CONS ---
Date/Time of Note Date/Time of Note DATE: 05/21/18 TIME: 15:52 Assessment/Plan Assessment/Plan Chief Complaint/Hosp Course METASTATIC BREAST Cancer ( PRIMARY IS IN THE L BREAST ) with MULTIPLE BONY METS, PULMONARY METS SEVERE T-L SPINE PAIN WITH DIFFICULTIES TO AMBULATE MRI T-L SPINE- Diffuse osseous metastatic disease of the visualized thoracic spine (T10 - T12), the entire lumbar spine, sacrum, and bilateral iliac bones. Expansion of the posterior T9 vertebral body resulting in central canal stenosis with AP diameter measuring 8 mm. CONT PO STEROIDS , PT IS ON TAPER CONT AI PAIN CONTROL RADONC AND F-UP MRI C - SPINE AND R HIP NOTED BONE SCAN -Multiple skeletal metastases in the axial and appendicular skeleton COMPLETED XRT PLAN CHEMO R FEMORAL LESION Because of the extensive and widespread metastatic lesion involving both vestibular part and proximal femoral part of the right hip and even if any surgical procedure is considered, she will need a special custom made acetabular part and proximal femoral part, which can be done in a [facility] center, probably by oncologic orthopedic surgeon. Even if surgery is considered and she needs to be transferred to a [facility] for the higher level of care including evaluation and care by oncology orthopedic surgeon, it is possible that because of the extensiveness of the metastatic lesions further surgical treatment may not be the recommended. PAIN CONT OXYCONTIN Obesity. Weight loss 60 pounds during the last 2 years by diet PMS. Myopia. Anemia chronic disease. Anxiety disorder. Posttraumatic stress disorder. Pain in the left forearm with a history of fracture of ulna and radius. 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 Consultation Date/Type/Reason Admit Date/Time Apr 25, 2018 at 14:37 Initial Consult Date 04/25/18 Type of Consultation: hemeon Requesting Provider: RUSS JEROME MD 24 HR Interval Summary Free Text/Dictation ALL NOTED AND PAIN- BETTER D/W RN Exam/Review of Systems Vital Signs Vitals Vital Signs Date Temp Pulse Resp B/P (MAP) Pulse Ox O2 O2 Flow FiO2 Time Delivery Rate 05/21/18 98.7 83 18 125/76 95 Room Air 08:25 (92) Intake and Output 05/20/18 05/20/18 05/21/18 1414:59 22:59 06:59 IntakeIntake Total 720 ml 360 ml 200 ml BalanceBalance 720 ml 360 ml 200 ml Exam Constitutional: alert, oriented, well developed, distress, frail; No non-verbal, No other Psych: anxiety, depression; No no complaints, No nl mood/affect, No confusion, No suicidal, No other Head: normocephalic, atraumatic; No lacerations, No hematomas, No other Eyes: EOMI, nl lids, PERRL; No nl conjunctiva, No nl sclera, No icteric, No fundi, disc, No other ENMT: tympanic membranes; No nl external ears & nose, No nl lips & teeth, No nl nasal mucosa & septum, No mucosa pink and moist, No intubated, No other Neck: supple, non-tender, jvd, bruits; No masses, No thyromegaly, No nuchal rigidity, No other Respiratory: clear to auscultation, normal air movement, crackles/rales, diminished breath sounds, respirations; No congested cough, No intercostal retraction, No labored breathing, No tactile fremitus, No wheezing, No other Cardiovascular: regular rate and rhythm, bruits, jugular venous distention (JVD), systolic murmur; No nl pulses, No diastolic murmur, No edema, No gallop, No irregular rhythm, No murmurs/extra sounds, No rub, No S3, No S4, No other Gastrointestinal: soft, non-tender, bowel sounds, distended, hepatomegaly, other (Obesity with thick fatty layer of the anterior abdominal wall with no rebound.); No nl liver, spleen, No ascites, No firm, No mass, No rebound or guarding, No splenomegaly, No surgical scars, No tender Genitourinary - Female: nl adnexae, nl external genitalia, CVA tenderness; No CMT, No uterus, No other Musculoskeletal: joint tenderness, muscle tone, muscle weakness, spine non- tender (Severe tenderness of the intrascapular area lumbosacral area with great difficulty to get up to move. 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; No nl mental status, No nl speech, No nl strength, No confused, No DTR's symmetric, No focal weakness, No lethargic, No numbness, No reflexes, No unresponsive, No other Skin: nl turgor; No rash or lesions, No diaphoresis, No ecchymosis, No laceration, No puncture, No other Lymph: No nl lymph nodes, No enlarged, No nontender, No other BREAST- LARGE L BREAST MASS Medications Medications Current Medications Anastrozole (Arimidex) 1 mg DAILY PO Last administered on 05/21/18at 08:36; Admin Dose 1 MG; Start 04/25/18 at 19:00 Zolpidem Tartrate (Ambien) 10 mg HS PRN PO INSOMNIA; Start 04/25/18 at 23:30 Lorazepam (Ativan) 0.5 mg TID PRN PO ANXIETY Last administered on 05/20/18at 20:55; Admin Dose 0.5 MG; Start 04/25/18 at 23:30 Magnesium Hydroxide (Milk Of Mag) 30 ml DAILY PRN PO CONSTIPATION Last administered on 04/29/18at 09:04; Admin Dose 30 ML; Start 04/27/18 at 21:00 Morphine Sulfate (morphine) 3 mg Q4H PRN IV SEVERE PAIN LEVEL 7-10 Last adminis tered on 05/21/18at 10:58; Admin Dose 3 MG; Start 04/27/18 at 21:00 Amlodipine Besylate (Norvasc) 5 mg BID PO Last administered on 05/21/18at 08:35; Admin Dose 5 MG; Start 04/28/18 at 04:00 Polyethylene Glycol (Miralax) 17 gm BID PO Last administered on 05/21/18at 08:36; Admin Dose 17 GM; Start 04/29/18 at 21:00 Docusate Sodium (Colace) 200 mg BID PO Last administered on 05/21/18at 08:34; Admin Dose 200 MG; Start 04/29/18 at 21:00 Miscellaneous Information 1 ea NOTE XX ; Start 04/29/18 at 10:30 Glucose (Glutose) 15 gm Q15M PRN PO DECREASED GLUCOSE; Start 04/29/18 at 10:30 Glucose (Glutose) 22.5 gm Q15M PRN PO DECREASED GLUCOSE; Start 04/29/18 at 10:30 Dextrose (D50w Syringe) 25 ml Q15M PRN IV DECREASED GLUCOSE; Start 04/29/18 at 10:30 Dextrose (D50w Syringe) 50 ml Q15M PRN IV DECREASED GLUCOSE; Start 04/29/18 at 10:30 Glucagon (Glucagen) 1 mg Q15M PRN IM DECREASED GLUCOSE; Start 04/29/18 at 10:30 Glucose (Glutose) 15 gm Q15M PRN BUCCAL DECREASED GLUCOSE; Start 04/29/18 at 10:30 Benazepril HCl (Lotensin) 5 mg BID PO Last administered on 05/21/18at 08:35; Admin Dose 5 MG; Start 04/29/18 at 21:00 Oxycodone HCl (Oxycontin) 20 mg BID PO Last administered on 05/21/18at 08:35; Admin Dose 20 MG; Start 05/01/18 at 21:00 Diagnostic Test (Pha) (Accu-Chek) 1 ea 02 XX ; Start 05/14/18 at 02:00 Insulin Aspart (Novolog Insulin Pen) NOVOLOG *MILD* ALGORITHM WITH MEALS BEDTI ME SC Last administered on 05/15/18at 17:53; Admin Dose 2 UNIT; Start 05/14/18 at 07:50 Dexamethasone (Decadron) 2 mg Q12 PO Last administered on 05/21/18at 08:34; Admin Dose 2 MG; Start 05/20/18 at 21:00 Results Result Diagram: 05/20/18 0429 05/20/18 0429 Results 24 hrs Laboratory Tests Test 05/20/18 17:46 05/20/18 22:28 05/21/18 08:33 05/21/18 12:41 Bedside Glucose 121 145 94 116 DES DUNAWAY MD May 21, 2018 15:52
--- NOTE | 2018-05-21 17:06 | PN ---
Date/Time of Note Date/Time of Note DATE: 05/21/18 TIME: 16:59 Assessment/Plan VTE Prophylaxis Risk score (from Ns)>0 risk: 2 SCD applied (from Ns): Yes Pharmacological prophylaxis: NA/contraindicated Pharm contraindication: other Lines/Catheters IV Catheter Type (from Nrsg): Mid Line Urinary Cath still in place: No Assessment/Plan Hospital Course Patient remains hemodynamically stable, able to ambulate using walker, patient pain is well is adequately controlled on current medication, pending placement Assessment/Plan -Left breast cancer with pulmonary and multiple bony metastasis -Intractable pain, continue oxycodone and morphine as needed for pain -Diffuse osseous metastatic disease of thoracic spine, status post radiation. Continue steroids. -Anemia of malignancy -Hypertension -Homelessness, social work program coordinator for SNIF placement Further recommendations based on clinical course. Plan of care discussed with Dr. Peñaloza. Exam/Review of Systems Vital Signs Vitals Vital Signs Date Temp Pulse Resp B/P (MAP) Pulse Ox O2 O2 Flow FiO2 Time Delivery Rate 05/21/18 97.9 87 18 109/69 93 Room Air 15:29 (82) Intake and Output 05/20/18 05/20/18 05/21/18 1515:00 23:00 07:00 IntakeIntake Total 720 ml 360 ml 200 ml BalanceBalance 720 ml 360 ml 200 ml Exam Constitutional: alert, oriented Respiratory: clear to auscultation Cardiovascular: nl pulses Gastrointestinal: soft, non-tender Musculoskeletal: nl extremities to inspection 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: nl mental status Medications Medications Current Medications Anastrozole (Arimidex) 1 mg DAILY PO Last administered on 05/21/18at 08:36; Admin Dose 1 MG; Start 04/25/18 at 19:00 Zolpidem Tartrate (Ambien) 10 mg HS PRN PO INSOMNIA; Start 04/25/18 at 23:30 Lorazepam (Ativan) 0.5 mg TID PRN PO ANXIETY Last administered on 05/20/18at 20:55; Admin Dose 0.5 MG; Start 04/25/18 at 23:30 Magnesium Hydroxide (Milk Of Mag) 30 ml DAILY PRN PO CONSTIPATION Last administered on 04/29/18at 09:04; Admin Dose 30 ML; Start 04/27/18 at 21:00 Morphine Sulfate (morphine) 3 mg Q4H PRN IV SEVERE PAIN LEVEL 7-10 Last administered on 05/21/18at 10:58; Admin Dose 3 MG; Start 04/27/18 at 21:00 Amlodipine Besylate (Norvasc) 5 mg BID PO Last administered on 05/21/18at 08:35; Admin Dose 5 MG; Start 04/28/18 at 04:00 Polyethylene Glycol (Miralax) 17 gm BID PO Last administered on 05/21/18at 08:36; Admin Dose 17 GM; Start 04/29/18 at 21:00 Docusate Sodium (Colace) 200 mg BID PO Last administered on 05/21/18at 08:34; Admin Dose 200 MG; Start 04/29/18 at 21:00 Miscellaneous Information 1 ea NOTE XX ; Start 04/29/18 at 10:30 Glucose (Glutose) 15 gm Q15M PRN PO DECREASED GLUCOSE; Start 04/29/18 at 10:30 Glucose (Glutose) 22.5 gm Q15M PRN PO DECREASED GLUCOSE; Start 04/29/18 at 10:30 Dextrose (D50w Syringe) 25 ml Q15M PRN IV DECREASED GLUCOSE; Start 04/29/18 at 10:30 Dextrose (D50w Syringe) 50 ml Q15M PRN IV DECREASED GLUCOSE; Start 04/29/18 at 10:30 Glucagon (Glucagen) 1 mg Q15M PRN IM DECREASED GLUCOSE; Start 04/29/18 at 10:30 Glucose (Glutose) 15 gm Q15M PRN BUCCAL DECREASED GLUCOSE; Start 04/29/18 at 10:30 Benazepril HCl (Lotensin) 5 mg BID PO Last administered on 05/21/18at 08:35; Admin Dose 5 MG; Start 04/29/18 at 21:00 Oxycodone HCl (Oxycontin) 20 mg BID PO Last administered on 05/21/18at 08:35; Admin Dose 20 MG; Start 05/01/18 at 21:00 Diagnostic Test (Pha) (Accu-Chek) 1 ea 02 XX ; Start 05/14/18 at 02:00 Insulin Aspart (Novolog Insulin Pen) NOVOLOG *MILD* ALGORITHM WITH MEALS BEDTIME SC Last administered on 05/15/18at 17:53; Admin Dose 2 UNIT; Start 05/14/18 at 07:50 Dexamethasone (Decadron) 2 mg Q12 PO Last administered on 05/21/18at 08:34; Admin Dose 2 MG; Start 05/20/18 at 21:00 Results Result Diagram: 05/20/18 0429 05/20/18 0429 Results 24 hrs Laboratory Tests Test 05/20/18 17:46 05/20/18 22:28 05/21/18 08:33 05/21/18 12:41 Bedside Glucose 121 145 94 116 YEISON SOLIZ May 21, 2018 17:06
[2018-05-21 20:03] VITALS: BP 109/62; PULSE 86; RESP 16
[2018-05-21 22:00] VITALS: BP 124/65; PULSE 91; RESP 18
[2018-05-22] MEDS: ACCU-CHEK XX SCH (02:00)
[2018-05-22 02:25] VITALS: BP 130/61; PULSE 80; RESP 16
[2018-05-22] MEDS: morphine 4 MG/ML VIAL IV PRN ×5 (02:31→21:44)
[2018-05-22 07:39] VITALS: BP 127/70; PULSE 76; RESP 18
[2018-05-22] MEDS: INSULIN ASPART [NOVOLOG] 3 ML PEN SC SCH ×4 (07:50→20:32)
[2018-05-22] MEDS: POLYETHYLENE GLYCOL 17 GM PACKET PO SCH ×2 (08:44→20:33)
[2018-05-22] MEDS: DEXAMETHASONE 2 MG TAB PO SCH ×2 (08:44→20:33)
[2018-05-22] MEDS: DOCUSATE SODIUM 100 MG CAP PO SCH ×2 (08:44→20:33)
[2018-05-22] MEDS: ANASTROZOLE 1 MG TAB PO SCH (08:45)
[2018-05-22] MEDS: AMLODIPINE 5 MG TAB PO SCH ×2 (08:46→20:34)
[2018-05-22] MEDS: BENAZEPRIL 5 MG TAB PO SCH ×2 (08:46→20:34)
[2018-05-22] MEDS: oxyCODONE (CR) 20 MG TAB [oxyCONTIN] PO SCH ×2 (08:47→20:33)
--- NOTE | 2018-05-22 15:21 | PN ---
Date/Time of Note Date/Time of Note DATE: 05/22/18 TIME: 15:18 Assessment/Plan VTE Prophylaxis Risk score (from Ns)>0 risk: 6 SCD applied (from Ns): Yes Pharmacological prophylaxis: NA/contraindicated Pharm contraindication: other Lines/Catheters IV Catheter Type (from Nrsg): Mid Line Central line still needed: Yes Urinary Cath still in place: No Assessment/Plan Hospital Course No acute events overnight, patient is awake alert, pain is adequately controlled, blood sugar is stable, pending placement Assessment/Plan -Left breast cancer with pulmonary and multiple bony metastasis. Dr. Palomino is following in oncology consultation. -Intractable pain, continue oxycodone and morphine as needed for pain -Diffuse osseous metastatic disease of thoracic spine, status post radiation. Continue steroids. -Anemia of malignancy -Hypertension -Homelessness, social staff worker for SNIF placement Further recommendations based on clinical course. Plan of care discussed with Dr. Peñaloza. Exam/Review of Systems Vital Signs Vitals Vital Signs Date Temp Pulse Resp B/P (MAP) Pulse Ox O2 O2 Flow FiO2 Time Delivery Rate 05/22/18 98.6 76 18 127/70 94 Room Air 07:39 (89) Intake and Output 05/21/18 05/21/18 05/22/18 1515:00 23:00 07:00 IntakeIntake Total 840 ml 390 ml 480 ml BalanceBalance 840 ml 390 ml 480 ml Exam Constitutional: alert, oriented Head: normocephalic Neck: supple Respiratory: normal air movement Cardiovascular: nl pulses Gastrointestinal: soft, non-tender Musculoskeletal: nl extremities to inspection Extremities: normal pulses 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: nl mental status Skin: nl turgor Medications Medications Current Medications Anastrozole (Arimidex) 1 mg DAILY PO Last administered on 05/22/18at 08:45; Admin Dose 1 MG; Start 04/25/18 at 19:00 Zolpidem Tartrate (Ambien) 10 mg HS PRN PO INSOMNIA; Start 04/25/18 at 23:30 Lorazepam (Ativan) 0.5 mg TID PRN PO ANXIETY Last administered on 05/20/18at 20 :55; Admin Dose 0.5 MG; Start 04/25/18 at 23:30 Magnesium Hydroxide (Milk Of Mag) 30 ml DAILY PRN PO CONSTIPATION Last administered on 04/29/18at 09:04; Admin Dose 30 ML; Start 04/27/18 at 21:00 Morphine Sulfate (morphine) 3 mg Q4H PRN IV SEVERE PAIN LEVEL 7-10 Last administered on 05/22/18at 12:15; Admin Dose 3 MG; Start 04/27/18 at 21:00 Amlodipine Besylate (Norvasc) 5 mg BID PO Last administered on 05/22/18at 08:46; Admin Dose 5 MG; Start 04/28/18 at 04:00 Polyethylene Glycol (Miralax) 17 gm BID PO Last administered on 05/22/18at 08:44; Admin Dose 17 GM; Start 04/29/18 at 21:00 Docusate Sodium (Colace) 200 mg BID PO Last administered on 05/22/18at 08:44; Admin Dose 200 MG; Start 04/29/18 at 21:00 Miscellaneous Information 1 ea NOTE XX ; Start 04/29/18 at 10:30 Glucose (Glutose) 15 gm Q15M PRN PO DECREASED GLUCOSE; Start 04/29/18 at 10:30 Glucose (Glutose) 22.5 gm Q15M PRN PO DECREASED GLUCOSE; Start 04/29/18 at 10:30 Dextrose (D50w Syringe) 25 ml Q15M PRN IV DECREASED GLUCOSE; Start 04/29/18 at 10:30 Dextrose (D50w Syringe) 50 ml Q15M PRN IV DECREASED GLUCOSE; Start 04/29/18 at 10:30 Glucagon (Glucagen) 1 mg Q15M PRN IM DECREASED GLUCOSE; Start 04/29/18 at 10:30 Glucose (Glutose) 15 gm Q15M PRN BUCCAL DECREASED GLUCOSE; Start 04/29/18 at 10:30 Benazepril HCl (Lotensin) 5 mg BID PO Last administered on 05/22/18at 08:46; Admin Dose 5 MG; Start 04/29/18 at 21:00 Oxycodone HCl (Oxycontin) 20 mg BID PO Last administered on 05/22/18at 08:47; Admin Dose 20 MG; Start 05/01/18 at 21:00 Diagnostic Test (Pha) (Accu-Chek) 1 ea 02 XX ; Start 05/14/18 at 02:00 Insulin Aspart (Novolog Insulin Pen) NOVOLOG *MILD* ALGORITHM WITH MEALS BEDTIME SC Last administered on 05/15/18at 17:53; Admin Dose 2 UNIT; Start 05/14/18 at 07:50 Dexamethasone (Decadron) 2 mg Q12 PO Last administered on 05/22/18at 08:44; Admin Dose 2 MG; Start 05/20/18 at 21:00 Results Result Diagram: 05/20/18 0429 05/20/18 0429 Results 24 hrs Laboratory Tests Test 05/21/18 17:40 05/21/18 21:02 05/22/18 08:17 05/22/18 12:33 Bedside Glucose 106 111 103 92 YEISON SOLIZ May 22, 2018 15:21
[2018-05-22 15:40] VITALS: BP 110/69; PULSE 74; RESP 20
[2018-05-22 20:27] VITALS: BP 109/72; PULSE 84; RESP 18
--- NOTE | 2018-05-22 21:51 | CONS ---
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 Expansion of the posterior T9 vertebral body resulting in central canal stenosis with AP diameter measuring 8 mm. CONT PO STEROIDS , PT IS ON TAPER CONT AI PAIN CONTROL RADONC AND F-UP MRI C - SPINE AND R HIP NOTED BONE SCAN -Multiple skeletal metastases in the axial and appendicular skeleton COMPLETED XRT PLAN CHEMO R FEMORAL LESION Because of the extensive and widespread metastatic lesion involving both vestibular part and proximal femoral part of the right hip and even if any surgical procedure is considered, she will need a special custom made acetabular part and proximal femoral part, which can be done in a [facility], probably by oncologic orthopedic surgeon. Even if surgery is considered and she needs to be transferred to a [facility] [place] for the higher level of care including evaluation and care by oncology orthopedic surgeon, it is possible that because of the extensiveness of the metastatic lesions further surgical treatment may not be the recommended. PAIN CONT OXYCONTIN POOR IV ACCESS- WILL D/W PT- SHE WILL NEEDS PICC OR PORTACATH Obesity. Weight loss 60 pounds during the last 2 years by diet PMS. Myopia. Anemia chronic disease. Anxiety disorder. Posttraumatic stress disorder. Pain in the left forearm with a history of fracture of ulna and radius. 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 Date/Type/Reason Admit Date/Time Apr 25, 2018 at 14:37 Initial Consult Date 04/25/18 Type of Consultation: hemeon Requesting Provider: RUSS JEROME MD 24 HR Interval Summary Free Text/Dictation ALL NOTED NAD D/W RN- POOR ACCESS- WILL NEED CENTRAL ACCESS Exam/Review of Systems Vital Signs Vitals Vital Signs Date Temp Pulse Resp B/P (MAP) Pulse Ox O2 O2 Flow FiO2 Time Delivery Rate 05/22/18 98.0 84 18 109/72 93 20:27 (84) 05/22/18 Room Air 15:40 Intake and Output 05/21/18 05/21/18 05/22/18 1414:59 22:59 06:59 IntakeIntake Total 840 ml 390 ml 480 ml BalanceBalance 840 ml 390 ml 480 ml Exam Constitutional: alert, oriented, well developed, distress, frail; No non-verbal, No other Psych: anxiety, depression; No no complaints, No nl mood/affect, No confusion, No suicidal, No other Head: normocephalic, atraumatic; No lacerations, No hematomas, No other Eyes: EOMI, nl lids, PERRL; No nl conjunctiva, No nl sclera, No icteric, No fundi, disc, No other ENMT: tympanic membranes; No nl external ears & nose, No nl lips & teeth, No nl nasal mucosa & septum, No mucosa pink and moist, No intubated, No other Neck: supple, non-tender, jvd, bruits; No masses, No thyromegaly, No nuchal rigidity, No other Respiratory: clear to auscultation, normal air movement, crackles/rales, diminished breath sounds, respirations; No congested cough, No intercostal retraction, No labored breathing, No tactile fremitus, No wheezing, No other Cardiovascular: regular rate and rhythm, bruits, jugular venous distention (JVD), systolic murmur; No nl pulses, No diastolic murmur, No edema, No gallop, No irregular rhythm, No murmurs/extra sounds, No rub, No S3, No S4, No other Gastrointestinal: soft, non-tender, bowel sounds, distended, hepatomegaly, other (Obesity with thick fatty layer of the anterior abdominal wall with no rebound.); No nl liver, spleen, No ascites, No firm, No mass, No rebound or guarding, No splenomegaly, No surgical scars, No tender Genitourinary - Female: nl adnexae, nl external genitalia, CVA tenderness; No CMT, No uterus, No other Musculoskeletal: joint tenderness, muscle tone, muscle weakness, spine non- tender (Severe tenderness of the intrascapular area lumbosacral area with great difficulty to get up to move. 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: SDET 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; No nl mental status, No nl speech, No nl strength, No confused, No DTR's symmetric, No focal weakness, No lethargic, No numbness, No reflexes, No u nresponsive, No other Skin: nl turgor; No rash or lesions, No diaphoresis, No ecchymosis, No laceration, No puncture, No other Lymph: No nl lymph nodes, No enlarged, No nontender, No other BREAST- LARGE L BREAST MASS Medications Medications Current Medications Anastrozole (Arimidex) 1 mg DAILY PO Last administered on 05/22/18 08:45; Admin Dose 1 MG; Start 04/25/18 at 19:00 Zolpidem Tartrate (Ambien) 10 mg HS PRN PO INSOMNIA; Start 04/25/18 at 23:30 Lorazepam (Ativan) 0.5 mg TID PRN PO ANXIETY Last administered on 05/20/18 20:55; Admin Dose 0.5 MG; Start 04/25/18 at 23:30 Magnesium Hydroxide (Milk Of Mag) 30 ml DAILY PRN PO CONSTIPATION Last administered on 04/29/18 09:04; Admin Dose 30 ML; Start 04/27/18 at 21:00 Morphine Sulfate (morphine) 3 mg Q4H PRN IV SEVERE PAIN LEVEL 7-10 Last administered on 05/22/18 21:44; Admin Dose 3 MG; Start 04/27/18 at 21:00 Amlodipine Besylate (Norvasc) 5 mg BID PO Last administered on 05/22/18 20:34; Admin Dose 5 MG; Start 04/28/18 at 04:00 Polyethylene Glycol (Miralax) 17 gm BID PO Last administered on 05/22/18 20:33; Admin Dose 17 GM; Start 04/29/18 at 21:00 Docusate Sodium (Colace) 200 mg BID PO Last administered on 05/22/18 20:33; Admin Dose 200 MG; Start 04/29/18 at 21:00 Miscellaneous Information 1 ea NOTE XX ; Start 04/29/18 at 10:30 Glucose (Glutose) 15 gm Q15M PRN PO DECREASED GLUCOSE; Start 04/29/18 at 10:30 Glucose (Glutose) 22.5 gm Q15M PRN PO DECREASED GLUCOSE; Start 04/29/18 at 10:30 Dextrose (D50w Syringe) 25 ml Q15M PRN IV DECREASED GLUCOSE; Start 04/29/18 at 10:30 Dextrose (D50w Syringe) 50 ml Q15M PRN IV DECREASED GLUCOSE; Start 04/29/18 at 10:30 Glucagon (Glucagen) 1 mg Q15M PRN IM DECREASED GLUCOSE; Start 04/29/18 at 10:30 Glucose (Glutose) 15 gm Q15M PRN BUCCAL DECREASED GLUCOSE; Start 04/29/18 at 10:30 Benazepril HCl (Lotensin) 5 mg BID PO Last administered on 05/22/18at 20:34; A dmin Dose 5 MG; Start 04/29/18 at 21:00 Oxycodone HCl (Oxycontin) 20 mg BID PO Last administered on 05/22/18at 20:33; Admin Dose 20 MG; Start 05/01/18 at 21:00 Diagnostic Test (Pha) (Accu-Chek) 1 ea 02 XX ; Start 05/14/18 at 02:00 Insulin Aspart (Novolog Insulin Pen) NOVOLOG *MILD* ALGORITHM WITH MEALS BEDTIME SC Last administered on 05/15/18at 17:53; Admin Dose 2 UNIT; Start 05/14/18 at 07:50 Dexamethasone (Decadron) 2 mg Q12 PO Last administered on 05/22/18at 20:33; Admin Dose 2 MG; Start 05/20/18 at 21:00 Results Result Diagram: 05/20/18 0429 05/20/18 0429 Results 24 hrs Laboratory Tests Test 05/22/18 08:17 05/22/18 12:33 05/22/18 17:33 05/22/18 20:31 Bedside Glucose 103 92 104 98 DES DUNAWAY MD May 22, 2018 21:51
[2018-05-23] MEDS: ACCU-CHEK XX SCH (01:38)
[2018-05-23] MEDS: morphine 4 MG/ML VIAL IV PRN ×5 (02:23→20:40)
[2018-05-23 02:51] VITALS: BP 107/67; PULSE 78; RESP 18
[2018-05-23] MEDS: INSULIN ASPART [NOVOLOG] 3 ML PEN SC SCH ×2 (07:50→12:48)
[2018-05-23 08:01] VITALS: BP 114/74; PULSE 79; RESP 18
[2018-05-23] MEDS: DEXAMETHASONE 2 MG TAB PO SCH (09:05)
[2018-05-23] MEDS: AMLODIPINE 5 MG TAB PO SCH ×2 (09:05→21:42)
[2018-05-23] MEDS: LORAZEPAM 0.5 MG TAB PO PRN (09:06)
[2018-05-23] MEDS: oxyCODONE (CR) 20 MG TAB [oxyCONTIN] PO SCH ×2 (09:07→21:41)
[2018-05-23] MEDS: DOCUSATE SODIUM 100 MG CAP PO SCH ×2 (09:07→21:40)
[2018-05-23] MEDS: POLYETHYLENE GLYCOL 17 GM PACKET PO SCH ×2 (09:07→21:00)
[2018-05-23] MEDS: BENAZEPRIL 5 MG TAB PO SCH ×2 (09:07→21:41)
[2018-05-23] MEDS: ANASTROZOLE 1 MG TAB PO SCH (09:13)
[2018-05-23 14:55] VITALS: BP 122/67; PULSE 99; RESP 18
--- NOTE | 2018-05-23 18:10 | CONS ---
Date/Time of Note Date/Time of Note DATE: 05/23/18 TIME: 16:14 Assessment/Plan Assessment/Plan Chief Complaint/Hosp Course METASTATIC BREAST Cancer ( PRIMARY IS IN THE L BREAST ) with MULTIPLE BONY METS, PULMONARY METS SEVERE T-L SPINE PAIN WITH DIFFICULTIES TO AMBULATE MRI T-L SPINE- Diffuse osseous metastatic disease of the visualized thoracic spine (T10 - T12), the entire lumbar spine, sacrum, and bilateral iliac bones. Expansion of the posterior T9 vertebral body resulting in central canal stenosis with AP diameter measuring 8 mm. DC ORAL DECADRON CONT AI PAIN CONTROL MRI C - SPINE AND R HIP NOTED BONE SCAN -Multiple skeletal metastases in the axial and appendicular skeleton COMPLETED XRT PLAN CHEMO R FEMORAL LESION Because of the extensive and widespread metastatic lesion inv olving both vestibular part and proximal femoral part of the right hip and even if any surgical procedure is considered, she will need a special custom made acetabular part and proximal femoral part, which can be done in a [facility] center, probably by oncologic orthopedic surgeon. Even if surgery is considered and she needs to be transferred [facility] for the higher level of care including evaluation and care by oncology orthopedic surgeon, it is possible that because of the extensiveness of the metastatic lesions further surgical treatment may not be the recommended. PAIN CONT OXYCONTIN POOR IV ACCESS- WILL D/W PT- SHE WILL NEEDS PICC OR PORTACATH Obesity. Weight loss 60 pounds during the last 2 years by diet PMS. Myopia. Anemia chronic disease. Anxiety disorder. Posttraumatic stress disorder. Pain in the left forearm with a history of fracture of ulna and radius. 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 Date/Type/Reason Admit Date/Time Apr 25, 2018 at 14:37 Initial Consult Date 04/25/18 Type of Consultation: hemeon Requesting Provider: RUSS JEROME MD 24 HR Interval Summary Free Text/Dictation ALL NOTED NAD AWAITING PLACEMENT Exam/Review of Systems Vital Signs Vitals Vital Signs Date Temp Pulse Resp B/P (MAP) Pulse Ox O2 O2 Flow FiO2 Time Delivery Rate 05/23/18 98.9 99 18 122/67 94 Room Air 14:55 (85) Intake and Output 05/22/18 05/22/18 05/23/18 1414:59 22:59 06:59 IntakeIntake Total 780 ml 200 ml BalanceBalance 780 ml 200 ml Exam Constitutional: alert, oriented, well developed, distress, frail; No non-verbal, No other Psych: anxiety, depression; No no complaints, No nl mood/affect, No confusion, No suicidal, No other Head: normocephalic, atraumatic; No lacerations, No hematomas, No other Eyes: EOMI, nl lids, PERRL; No nl conjunctiva, No nl sclera, No icteric, No fundi, disc, No other ENMT: tympanic membranes; No nl external ears & nose, No nl lips & teeth, No nl nasal mucosa & septum, No mucosa pink and moist, No intubated, No other Neck: supple, non-tender, jvd, bruits; No masses, No thyromegaly, No nuchal rigidity, No other Respiratory: clear to auscultation, normal air movement, crackles/rales, diminished breath sounds, respirations; No congested cough, No intercostal retraction, No labored breathing, No tactile fremitus, No wheezing, No other Cardiovascular: regular rate and rhythm, bruits, jugular venous distention (JVD), systolic murmur; No nl pulses, No diastolic murmur, No edema, No gallop, No irregular rhythm, No murmurs/extra sounds, No rub, No S3, No S4, No other Gastrointestinal: soft, non-tender, bowel sounds, distended, hepatomegaly, other (Obesity with thick fatty layer of the anterior abdominal wall with no rebound.); No nl liver, spleen, No ascites, No firm, No mass, No rebound or guarding, No splenomegaly, No surgical scars, No tender Genitourinary - Female: nl adnexae, nl external genitalia, CVA tenderness; No CMT, No uterus, No other Musculoskeletal: joint tenderness, muscle tone, muscle weakness, spine non- tender (Severe tenderness of the intrascapular area lumbosacral area with great difficulty to get up to move. 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: WELFARE SPECIALIST 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; No nl mental status, No nl speech, No nl strength, No confused, No DTR's symmetric, No focal weakness, No lethargic, No numbness, No reflexes, No unresponsive, No other Skin: nl turgor; No rash or lesions, No diaphoresis, No ecchymosis, No laceration, No puncture, No other Lymph: No nl lymph nodes, No enlarged, No nontender, No other BREAST- LARGE L BREAST MASS Medications Medications Current Medications Anastrozole (Arimidex) 1 mg DAILY PO Last administered on 05/23/18 09:13; Admin Dose 1 MG; Start 04/25/18 at 19:00 Zolpidem Tartrate (Ambien) 10 mg HS PRN PO INSOMNIA; Start 04/25/18 at 23:30 Lorazepam (Ativan) 0.5 mg TID PRN PO ANXIETY Last administered on 05/20/18 20:55; Admin Dose 0.5 MG; Start 04/25/18 at 23:30 Magnesium Hydroxide (Milk Of Mag) 30 ml DAILY PRN PO CONSTIPATION Last administered on 04/29/18at 09:04; Admin Dose 30 ML; Start 04/27/18 at 21:00 Morphine Sulfate (morphine) 3 mg Q4H PRN IV SEVERE PAIN LEVEL 7-10 Last administered on 05/23/18at 15:51; Admin Dose 3 MG; Start 04/27/18 at 21:00 Amlodipine Besylate (Norvasc) 5 mg BID PO Last administered on 05/23/18at 09:05; Admin Dose 5 MG; Start 04/28/18 at 04:00 Polyethylene Glycol (Miralax) 17 gm BID PO Last administered on 05/23/18at 09:07; Admin Dose 17 GM; Start 04/29/18 at 21:00 Docusate Sodium (Colace) 200 mg BID PO Last administered on 05/23/18 09:07; Admin Dose 200 MG; Start 04/29/18 at 21:00 Miscellaneous Information 1 ea NOTE XX ; Start 04/29/18 at 10:30 Glucose (Glutose) 15 gm Q15M PRN PO DECREASED GLUCOSE; Start 04/29/18 at 10:30 Glucose (Glutose) 22.5 gm Q15M PRN PO DECREASED GLUCOSE; Start 04/29/18 at 10:30 Dextrose (D50w Syringe) 25 ml Q15M PRN IV DECREASED GLUCOSE; Start 04/29/18 at 10:30 Dextrose (D50w Syringe) 50 ml Q15M PRN IV DECREASED GLUCOSE; Start 04/29/18 at 10:30 Glucagon (Glucagen) 1 mg Q15M PRN IM DECREASED GLUCOSE; Start 04/29/18 at 10:30 Glucose (Glutose) 15 gm Q15M PRN BUCCAL DECREASED GLUCOSE; Start 04/29/18 at 10:30 Benazepril HCl (Lotensin) 5 mg BID PO Last administered on 05/23/18at 09:07; Admin Dose 5 MG; Start 04/29/18 at 21:00 Oxycodone HCl (Oxycontin) 20 mg BID PO Last administered on 05/23/18at 09:07; Admin Dose 20 MG; Start 05/01/18 at 21:00 Dexamethasone (Decadron) 2 mg Q12 PO Last administered on 05/23/18at 09:05; Admin Dose 2 MG; Start 05/20/18 at 21:00 Enoxaparin Sodium (Lovenox) 40 mg DAILY SC ; Start 05/24/18 at 09:00 Results Result Diagram: 05/23/18 0451 05/23/18 0451 Results 24 hrs Laboratory Tests Test 05/22/18 17:33 05/22/18 20:31 05/23/18 04:51 05/23/18 08:31 Bedside Glucose 104 98 85 White Blood Count 3.2 #L Red Blood Count 3.86 L Hemoglobin 12.0 Hematocrit 37.1 Mean Corpuscular 96.1 Volume Mean Corpuscular 31.1 Hemoglobin Mean Corpuscular 32.3 Hemoglobin Concent Red Cell 15.1 H Distribution Width Platelet Count 129 #L Mean Platelet Volume 8.9 Immature 0.300 Granulocytes % Neutrophils % 80.0 H Lymphocytes % 7.0 L Monocytes % 11.1 H Eosinophils % 1.3 Basophils % 0.3 Nucleated Red Blood 0.0 Cells % Immature 0.010 Granulocytes # Neutrophils # 2.5 Lymphocytes # 0.2 L Monocytes # 0.4 Eosinophils # 0.0 Basophils # 0.0 Nucleated Red Blood 0.0 Cells # Sodium Level 138 Potassium Level 4.4 Chloride Level 105 Carbon Dioxide Level 27 Anion Gap 6 Blood Urea Nitrogen 18 Creatinine 0.35 L Est Glomerular > 60 Filtrat Rate mL/min Glucose Level 116 Calcium Level 8.0 L Test 05/23/18 12:45 Bedside Glucose 98 DES DUNAWAY MD May 23, 2018 18:10
[2018-05-23 20:46] VITALS: BP 106/62; PULSE 91; RESP 18
[2018-05-24 01:44] VITALS: BP 112/70; PULSE 74; RESP 19
[2018-05-24] MEDS: morphine 4 MG/ML VIAL IV PRN ×6 (01:57→23:55)
[2018-05-24 02:15] VITALS: BP 112/70; PULSE 74; RESP 19
[2018-05-24 08:26] VITALS: BP 119/58; PULSE 92; RESP 19
[2018-05-24] MEDS: POLYETHYLENE GLYCOL 17 GM PACKET PO SCH ×2 (09:38→21:00)
[2018-05-24] MEDS: oxyCODONE (CR) 20 MG TAB [oxyCONTIN] PO SCH ×2 (09:39→20:50)
[2018-05-24] MEDS: BENAZEPRIL 5 MG TAB PO SCH ×2 (09:40→20:49)
[2018-05-24] MEDS: DOCUSATE SODIUM 100 MG CAP PO SCH ×2 (09:40→20:49)
[2018-05-24] MEDS: AMLODIPINE 5 MG TAB PO SCH ×2 (09:40→20:50)
[2018-05-24] MEDS: ANASTROZOLE 1 MG TAB PO SCH (09:43)
[2018-05-24] MEDS: ENOXAPARIN 40 MG/0.4 ML SYG SC SCH (09:43)
[2018-05-24 19:55] VITALS: BP 90/54; PULSE 94; RESP 18
--- NOTE | 2018-05-24 21:36 | PN ---
Date/Time of Note Date/Time of Note DATE: 05/24/18 TIME: 21:35 Assessment/Plan VTE Prophylaxis Risk score (from Nsg)>0 risk: 4 SCD applied (from Ns): No SCD contraindicated: low risk/ambulating Pharmacological prophylaxis: LMWH Lines/Catheters IV Catheter Type (from Nrsg): Mid Line Central line still needed: No Urinary Cath still in place: No Reason Cath still needed: urinary retention Assessment/Plan Assessment/Plan 1. Cancer of the left and left breast. Exact type at this time unknown.MULTIPLE BONY METS, PULMONARY METS 2. Severe pain in the interscapular and lumbar sacral area most probably metastatic lesion possible femoral fracture. pathologic fracture of T9 with 60% of loss of height. Neurosurgical consult planned. 3. Obesity. 4. Weight loss 60 pounds during the last 2 years by diet 5. PMS. 6. Myopia. 7. Anemia chronic disease. 8. Anxiety disorder. 9. Posttraumatic stress disorder. 10. Pain in the left forearm with a history of fracture of ulna and radius. 11. Tachycardia 12. Hypoxemia at night marginal improved after 2 L of nasal cannula oxygen. 13. Process at night. 14. 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 15.Pain syndrome. Subjective 24 Hr Interval Summary Free Text/Dictation Tolerable pain in the spine starting from lower part of the neck to the call and make the lumbosacral and hip areas. That exacerbating the pain but comparing with the day of admission at the initial phase of her radiation therapy the pain is now not as severe and the patient is making effort to get less frequent injections of morphine sulfate. Subjective hx not possible: pt critical Constitutional: chills, febrile, poor po, requiring IVF, requiring O2; No no complaints, No improved, No diaphoresis, No disoriented, No other Eyes: redness ENT: congestion, sore throat; No no complaints, No bleeding, No pain, No discharge, No dysphagia, No other Respiratory: cough, pleuritic pain, shortness of breath; No no complaints, No pain, No sputum, No wheezing, No other Cardiovascular: chest pain, lightheadedness, orthopenea, palpitations, paroxysmal nocturnal dyspnea; No no complaints, No edema, No other Gastrointestinal: constipation, decreased appetite, flatus, nausea, passing stool; No no complaints, No pain, No blood, No diarrhea, No vomiting, No other Genitourinary: dysuria, discharge; No no complaints, No bleeding, No flank pain, No hematuria, No other Musculoskeletal: back pain, bone/joint pain, neck pain; No no complaints, No restricted range of motion, No swelling, No other Skin: bruising, erythema, pruritis, rash; No no complaints, No laceration, No skin lesions, No other Neurologic: confusion, dizziness, headache; No no complaints, No focal-weakness, No syncope, No seizure, No other Endocrine: dry skin Lymphatic: No no complaints, No adenopathy, No tender nodes, No lymphadema, No other Psychological: anxiety; No no complaints, No nl mood/affect, No confusion, No depression, No s uicidal, No other Exam/Review of Systems Vital Signs Vitals Vital Signs Date Temp Pulse Resp B/P (MAP) Pulse Ox O2 O2 Flow FiO2 Time Delivery Rate 05/24/18 99.1 94 18 90/54 (66) 94 Room Air 19:55 Intake and Output 05/23/18 05/23/18 05/24/18 1515:00 23:00 07:00 IntakeIntake Total 300 ml 760 ml BalanceBalance 300 ml 760 ml Exam Constitutional: alert, oriented, well developed, frail; No non-verbal, No distress, No obese, No other Psych: anxiety; No no complaints, No nl mood/affect, No confusion, No depression, No suicidal, No other Eyes: EOMI, nl lids, PERRL; No nl conjunctiva, No nl sclera, No icteric, No fundi, disc, No other ENMT: nl external ears & nose, nl lips & teeth, nl nasal mucosa & septum Neck: jvd; No supple, No non-tender, No bruits, No masses, No thyromegaly, No nuchal rigidity, No other Respiratory: normal air movement, congested cough, crackles/rales, diminished breath sounds; No clear to auscultation, No intercostal retraction, No labored breathing, No respirations, No tactile fremitus, No wheezing, No other Cardiovascular: nl pulses, bruits, edema, systolic murmur; No regular rate and rhythm, No diastolic murmur, No gallop, No irregular rhythm, No jugular venous distention (JVD), No murmurs/extra sounds, No rub, No S3, No S4, No other Gastrointestinal: soft, nl liver, spleen, non-tender, bowel sounds; No ascites, No distended, No firm, No hepatomegaly, No mass, No rebound or guarding, No splenomegaly, No surgical scars, No tender, No other Musculoskeletal: joint tenderness, muscle tone, muscle weakness; No nl extremities to inspection, No nl gait and stance, No range of motion, No spine non-tender, No swelling, No other Extremities: normal pulses; No calf tenderness, No cyanosis, No clubbing, No edema, No pitting pedal edema, No palpable cord, No tenderness, No other 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: 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 MECHANIC 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, nl mental status, numbness (Both lower extremities distally.); No nl speech, No nl strength, No confused, No DTR's symmetric, No focal weakness, No lethargic, No reflexes, No unresponsive, No other Skin: nl turgor, rash or lesions; No diaphoresis, No ecchymosis, No laceration, No puncture, No other Lymph: nl lymph nodes; No enlarged, No nontender, No other Medications Medications Current Medications Anastrozole (Arimidex) 1 mg DAILY PO Last administered on 05/24/18 09:43; Admin Dose 1 MG; Start 04/25/18 at 19:00 Zolpidem Tartrate (Ambien) 10 mg HS PRN PO INSOMNIA; Start 04/25/18 at 23:30 Lorazepam (Ativan) 0.5 mg TID PRN PO ANXIETY Last administered on 05/20/18 20:55; Admin Dose 0.5 MG; Start 04/25/18 at 23:30 Magnesium Hydroxide (Milk Of Mag) 30 ml DAILY PRN PO CONSTIPATION Last administered on 04/29/18 09:04; Admin Dose 30 ML; Start 04/27/18 at 21:00 Morphine Sulfate (morphine) 3 mg Q4H PRN IV SEVERE PAIN LEVEL 7-10 Last administered on 05/24/18 19:54; Admin Dose 3 MG; Start 04/27/18 at 21:00 Amlodipine Besylate (Norvasc) 5 mg BID PO Last administered on 05/24/18 20:50; Admin Dose 5 MG; Start 04/28/18 at 04:00 Polyethylene Glycol (Miralax) 17 gm BID PO Last administered on 05/24/18at 09:38; Admin Dose 17 GM; Start 04/29/18 at 21:00 Docusate Sodium (Colace) 200 mg BID PO Last administered on 05/24/18at 20:49; Admin Dose 200 MG; Start 04/29/18 at 21:00 Benazepril HCl (Lotensin) 5 mg BID PO Last administered on 05/24/18at 20:49; Ad min Dose 5 MG; Start 04/29/18 at 21:00 Oxycodone HCl (Oxycontin) 20 mg BID PO Last administered on 05/24/18at 20:50; Admin Dose 20 MG; Start 05/01/18 at 21:00 Enoxaparin Sodium (Lovenox) 40 mg DAILY SC Last administered on 05/24/18at 09:43; Admin Dose 40 MG; Start 05/24/18 at 09:00 Results Result Diagram: 05/24/18 0433 05/24/18 0433 Results 24 hrs Laboratory Tests Test 05/24/18 04:33 White Blood Count 2.6 L Red Blood Count 3.76 L Hemoglobin 11.6 L Hematocrit 36.6 L Mean Corpuscular Volume 97.3 Mean Corpuscular Hemoglobin 30.9 Mean Corpuscular Hemoglobin Concent 31.7 L Red Cell Distribution Width 15.2 H Platelet Count 125 L Mean Platelet Volume 9.1 Immature Granulocytes % 0.400 Neutrophils % 70.8 Lymphocytes % 12.5 L Monocytes % 12.9 H Eosinophils % 3.0 Basophils % 0.4 Nucleated Red Blood Cells % 0.0 Immature Granulocytes # 0.010 Neutrophils # 1.9 Lymphocytes # 0.3 L Monocytes # 0.3 Eosinophils # 0.1 Basophils # 0.0 Nucleated Red Blood Cells # 0.0 Sodium Level 136 Potassium Level 4.4 Chloride Level 105 Carbon Dioxide Level 26 Anion Gap 5 Blood Urea Nitrogen 19 Creatinine 0.36 L Est Glomerular Filtrat Rate mL/min > 60 Glucose Level 95 Calcium Level 7.6 L RUSS JEROME MD May 24, 2018 21:35
--- NOTE | 2018-05-24 23:40 | CONS ---
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 Expansion of the posterior T9 vertebral body resulting in central canal stenosis with AP diameter measuring 8 mm. DC ORAL DECADRON CONT AI PAIN CONTROL MRI C - SPINE AND R HIP NOTED BONE SCAN -Multiple skeletal metastases in the axial and appendicular skeleton COMPLETED XRT PLAN CHEMO R FEMORAL LESION Because of the extensive and widespread metastatic lesion inv olving both vestibular part and proximal femoral part of the right hip and even if any surgical procedure is considered, she will need a special custom made acetabular part and proximal femoral part, which can be done in a big [facility] center, probably by oncologic orthopedic surgeon. Even if surgery is considered and she needs to be transferred to a [facility] for the higher level of care including evaluation and care by oncology orthopedic surgeon, it is possible that because of the extensiveness of the metastatic lesions further surgical treatment may not be the recommended. PAIN CONT OXYCONTIN POOR IV ACCESS- WILL D/W PT- SHE WILL NEEDS PICC OR PORTACATH Obesity. Weight loss 60 pounds during the last 2 years by diet PMS. Myopia. Anemia chronic disease. Anxiety disorder. Posttraumatic stress disorder. Pain in the left forearm with a history of fracture of ulna and radius. Tachycardia Incomplete data SOCIAL ISSUES [employer]ICE Consultation Date/Type/Reason Admit Date/Time Apr 25, 2018 at 14:37 Initial Consult Date 04/25/18 Requesting Provider: RUSS JEROME MD 24 HR Interval Summary Free Text/Dictation all noted Exam/Review of Systems Vital Signs Vitals Vital Signs Date Temp Pulse Resp B/P (MAP) Pulse Ox O2 O2 Flow FiO2 Time Delivery Rate 05/24/18 99.1 94 18 90/54 (66) 94 Room Air 19:55 Intake and Output 05/23/18 05/23/18 05/24/18 1515:00 23:00 07:00 IntakeIntake Total 300 ml 760 ml BalanceBalance 300 ml 760 ml Exam Constitutional: alert, oriented, well developed, distress, frail; No non-verbal, No other Psych: anxiety, depression; No no complaints, No nl mood/affect, No confusion, No suicidal, No other Head: normocephalic, atraumatic; No lacerations, No hematomas, No other Eyes: EOMI, nl lids, PERRL; No nl conjunctiva, No nl sclera, No icteric, No fundi, disc, No other ENMT: tympanic membranes; No nl external ears & nose, No nl lips & teeth, No nl nasal mucosa & septum, No mucosa pink and moist, No intubated, No other Neck: supple, non-tender, jvd, bruits; No masses, No thyromegaly, No nuchal rigidity, No other Respiratory: clear to auscultation, normal air movement, crackles/rales, di minished breath sounds, respirations; No congested cough, No intercostal retraction, No labored breathing, No tactile fremitus, No wheezing, No other Cardiovascular: regular rate and rhythm, bruits, jugular venous distention (JVD), systolic murmur; No nl pulses, No diastolic murmur, No edema, No gallop, No irregular rhythm, No murmurs/extra sounds, No rub, No S3, No S4, No other Gastrointestinal: soft, non-tender, bowel sounds, distended, hepatomegaly, other (Obesity with thick fatty layer of the anterior abdominal wall with no rebound.); No nl liver, spleen, No ascites, No firm, No mass, No rebound or guarding, No splenomegaly, No surgical scars, No tender Genitourinary - Female: nl adnexae, nl external genitalia, CVA tenderness; No CMT, No uterus, No other Musculoskeletal: joint tenderness, muscle tone, muscle weakness, spine non- tender (Severe tenderness of the intrascapular area lumbosacral area with great difficulty to get up to move. 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; No nl mental status, No nl speech, No nl strength, No confused, No DTR's symmetric, No focal weakness, No lethargic, No numbness, No reflexes, No unresponsive, No other Skin: nl turgor; No rash or lesions, No diaphoresis, No ecchymosis, No laceration, No puncture, No other Lymph: No nl lymph nodes, No enlarged, No nontender, No other BREAST- LARGE L BREAST MASS Medications Medications Current Medications Anastrozole (Arimidex) 1 mg DAILY PO Last administered on 05/24/18 09:43; Admin Dose 1 MG; Start 04/25/18 at 19:00 Zolpidem Tartrate (Ambien) 10 mg HS PRN PO INSOMNIA; Start 04/25/18 at 23:30 Lorazepam (Ativan) 0.5 mg TID PRN PO ANXIETY Last administered on 05/20/18 20:55; Admin Dose 0.5 MG; Start 04/25/18 at 23:30 Magnesium Hydroxide (Milk Of Mag) 30 ml DAILY PRN PO CONSTIPATION Last administered on 04/29/18 09:04; Admin Dose 30 ML; Start 04/27/18 at 21:00 Morphine Sulfate (morphine) 3 mg Q4H PRN IV SEVERE PAIN LEVEL 7-10 Last administered on 05/24/18 19:54; Admin Dose 3 MG; Start 04/27/18 at 21:00 Amlodipine Besylate (Norvasc) 5 mg BID PO Last administered on 05/24/18 20:50; Admin Dose 5 MG; Start 04/28/18 at 04:00 Polyethylene Glycol (Miralax) 17 gm BID PO Last administered on 05/24/18 09:38; Admin Dose 17 GM; Start 04/29/18 at 21:00 Docusate Sodium (Colace) 200 mg BID PO Last administered on 05/24/18 20:49; Admin Dose 200 MG; Start 04/29/18 at 21:00 Benazepril HCl (Lotensin) 5 mg BID PO Last administered on 05/24/18 20:49; Admin Dose 5 MG; Start 04/29/18 at 21:00 Oxycodone HCl (Oxycontin) 20 mg BID PO Last administered on 05/24/18 20:50; Admin Dose 20 MG; Start 05/01/18 at 21:00 Enoxaparin Sodium (Lovenox) 40 mg DAILY SC Last administered on 05/24/18at 09:43; Admin Dose 40 MG; Start 05/24/18 at 09:00 Results Result Diagram: 05/24/18 0433 05/24/18 0433 Results 24 hrs Laboratory Tests Test 05/24/18 04:33 White Blood Count 2.6 L Red Blood Count 3.76 L Hemoglobin 11.6 L Hematocrit 36.6 L Mean Corpuscular Volume 97.3 Mean Corpuscular Hemoglobin 30.9 Mean Corpuscular Hemoglobin Concent 31.7 L Red Cell Distribution Width 15.2 H Platelet Count 125 L Mean Platelet Volume 9.1 Immature Granulocytes % 0.400 Neutrophils % 70.8 Lymphocytes % 12.5 L Monocytes % 12.9 H Eosinophils % 3.0 Basophils % 0.4 Nucleated Red Blood Cells % 0.0 Immature Granulocytes # 0.010 Neutrophils # 1.9 Lymphocytes # 0.3 L Monocytes # 0.3 Eosinophils # 0.1 Basophils # 0.0 Nucleated Red Blood Cells # 0.0 Sodium Level 136 Potassium Level 4.4 Chloride Level 105 Carbon Dioxide Level 26 Anion Gap 5 Blood Urea Nitrogen 19 Creatinine 0.36 L Est Glomerular Filtrat Rate mL/min > 60 Glucose Level 95 Calcium Level 7.6 L DES DUNAWAY MD May 24, 2018 23:39
[2018-05-25 02:10] VITALS: BP 112/76; PULSE 107; RESP 20
[2018-05-25] MEDS: morphine 4 MG/ML VIAL IV PRN ×5 (04:16→22:05)
[2018-05-25 07:47] VITALS: BP 107/63; PULSE 95; RESP 18
[2018-05-25] MEDS: POLYETHYLENE GLYCOL 17 GM PACKET PO SCH ×2 (09:00→20:56)
[2018-05-25] MEDS: AMLODIPINE 5 MG TAB PO SCH ×2 (09:15→20:56)
[2018-05-25] MEDS: DOCUSATE SODIUM 100 MG CAP PO SCH ×2 (09:22→20:46)
[2018-05-25] MEDS: BENAZEPRIL 5 MG TAB PO SCH ×2 (09:22→20:55)
[2018-05-25] MEDS: oxyCODONE (CR) 20 MG TAB [oxyCONTIN] PO SCH ×2 (09:24→20:50)
[2018-05-25] MEDS: ANASTROZOLE 1 MG TAB PO SCH (09:24)
[2018-05-25] MEDS: ENOXAPARIN 40 MG/0.4 ML SYG SC SCH (09:24)
--- NOTE | 2018-05-25 11:51 | CONS ---
Date/Time of Note Date/Time of Note DATE: 05/25/18 TIME: 11:51 Assessment/Plan Assessment/Plan Chief Complaint/Hosp Course METASTATIC BREAST Cancer ( PRIMARY IS IN THE L BREAST ) with MULTIPLE BONY METS, PULMONARY METS SEVERE T-L SPINE PAIN WITH DIFFICULTIES TO AMBULATE MRI T-L SPINE- Diffuse osseous metastatic disease of the visualized thoracic spine (T10 - T12), the entire lumbar spine, sacrum, and bilateral iliac bones. Expansion of the posterior T9 vertebral body resulting in central canal stenosis with AP diameter measuring 8 mm. DC ORAL DECADRON CONT AI PAIN CONTROL MRI C - SPINE AND R HIP NOTED BONE SCAN -Multiple skeletal metastases in the axial and appendicular skeleton COMPLETED XRT PLAN CHEMO R FEMORAL LESION Because of the extensive and widespread metastatic lesion inv olving both vestibular part and proximal femoral part of the right hip and even if any surgical procedure is considered, she will need a special custom made acetabular part and proximal femoral part, which can be done in a big [facility] center, probably by oncologic orthopedic surgeon. Even if surgery is considered and she needs to be transferred to a [facility] for the higher level of care including evaluation and care by oncology orthopedic surgeon, it is possible that because of the extensiveness of the metastatic lesions further surgical treatment may not be the recommended. PAIN CONT OXYCONTIN POOR IV ACCESS- WILL D/W PT- SHE WILL NEEDS PICC OR PORTACATH Obesity. Weight loss 60 pounds during the last 2 years by diet PMS. Myopia. Anemia chronic disease. Anxiety disorder. Posttraumatic stress disorder. Pain in the left forearm with a history of fracture of ulna and radius. Tachycardia Incomplete data SOCIAL ISSUES [employer] B[employer]ER AND SOCIAL SERVICE Consultation Date/Type/Reason Admit Date/Time Apr 25, 2018 at 14:37 Initial Consult Date 04/25/18 Requesting Provider: RUSS JEROME MD 24 HR Interval Summary Free Text/Dictation all noted Exam/Review of Systems Vital Signs Vitals Vital Signs Date Temp Pulse Resp B/P (MAP) Pulse Ox O2 O2 Flow FiO2 Time Delivery Rate 05/25/18 99.4 95 18 107/63 95 Room Air 07:47 (78) Intake and Output 05/24/18 05/24/18 05/25/18 1515:00 23:00 07:00 IntakeIntake Total 360 ml 1440 ml BalanceBalance 360 ml 1440 ml Exam Constitutional: alert, oriented, well developed, distress, frail; No non-verbal, No other Psych: anxiety, depression; No no complaints, No nl mood/affect, No confusion, No suicidal, No other Head: normocephalic, atraumatic; No lacerations, No hematomas, No other Eyes: EOMI, nl lids, PERRL; No nl conjunctiva, No nl sclera, No icteric, No fundi, disc, No other ENMT: tympanic membranes; No nl external ears & nose, No nl lips & teeth, No nl nasal mucosa & septum, No mucosa pink and moist, No intubated, No other Neck: supple, non-tender, jvd, bruits; No masses, No thyromegaly, No nuchal rigidity, No other Respiratory: clear to auscultation, normal air movement, crackles/rales, diminished breath sounds, respirations; No congested cough, No intercostal retraction, No labored breathing, No tactile fremitus, No wheezing, No other Cardiovascular: regular rate and rhythm, bruits, jugular venous distention (JVD), systolic murmur; No nl pulses, No diastolic murmur, No edema, No gallop, No irregular rhythm, No murmurs/extra sounds, No rub, No S3, No S4, No other Gastrointestinal: soft, non-tender, bowel sounds, distended, hepatomegaly, other (Obesity with thick fatty layer of the anterior abdominal wall with no rebound.); No nl liver, spleen, No ascites, No firm, No mass, No rebound or guarding, No splenomegaly, No surgical scars, No tender Genitourinary - Female: nl adnexae, nl external genitalia, CVA tenderness; No CMT, No uterus, No other Musculoskeletal: joint tenderness, muscle tone, muscle weakness, spine non- tender (Severe tenderness of the intrascapular area lumbosacral area with great difficulty to get up to move. 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; No nl mental status, No nl speech, No nl strength, No confused, No DTR's symmetric, No focal weakness, No lethargic, No numbness, No reflexes, No unresponsive, No other Skin: nl turgor; No rash or lesions, No diaphoresis, No ecchymosis, No laceration, No puncture, No other Lymph: No nl lymph nodes, No enlarged, No nontender, No other BREAST- LARGE L BREAST MASS Medications Medications Current Medications Anastrozole (Arimidex) 1 mg DAILY PO Last administered on 05/25/18 09:24; Admin Dose 1 MG; Start 04/25/18 at 19:00 Zolpidem Tartrate (Ambien) 10 mg HS PRN PO INSOMNIA; Start 04/25/18 at 23:30 Lorazepam (Ativan) 0.5 mg TID PRN PO ANXIETY Last administered on 05/20/18 20:55; Admin Dose 0.5 MG; Start 04/25/18 at 23:30 Magnesium Hydroxide (Milk Of Mag) 30 ml DAILY PRN PO CONSTIPATION Last administered on 04/29/18 09:04; Admin Dose 30 ML; Start 04/27/18 at 21:00 Morphine Sulfate (morphine) 3 mg Q4H PRN IV SEVERE PAIN LEVEL 7-10 Last administered on 05/25/18 09:21; Admin Dose 3 MG; Start 04/27/18 at 21:00 Amlodipine Besylate (Norvasc) 5 mg BID PO Last administered on 05/25/18 09:15; Admin Dose 5 MG; Start 04/28/18 at 04:00 Polyethylene Glycol (Miralax) 17 gm BID PO Last administered on 05/24/18 09:38; Admin Dose 17 GM; Start 04/29/18 at 21:00 Docusate Sodium (Colace) 200 mg BID PO Last administered on 05/25/18 09:22; Admin Dose 200 MG; Start 04/29/18 at 21:00 Benazepril HCl (Lotensin) 5 mg BID PO Last administered on 05/25/18 09:22; Admin Dose 5 MG; Start 04/29/18 at 21:00 Oxycodone HCl (Oxycontin) 20 mg BID PO Last administered on 05/25/18 09:24; Admin Dose 20 MG; Start 05/01/18 at 21:00 Enoxaparin Sodium (Lovenox) 40 mg DAILY SC Last administered on 05/25/18at 09:24; Admin Dose 40 MG; Start 05/24/18 at 09:00 Results Result Diagram: 05/24/18 0433 05/24/18 0433 DES DUNAWAY MD May 25, 2018 11:51
[2018-05-25 15:02] VITALS: BP 101/58; PULSE 92; RESP 17
[2018-05-25 19:15] VITALS: BP 102/59; PULSE 97; RESP 20
--- NOTE | 2018-05-25 19:29 | PN ---
Date/Time of Note Date/Time of Note DATE: 05/25/18 TIME: 19:26 Assessment/Plan VTE Prophylaxis Risk score (from Nsg)>0 risk: 4 SCD applied (from Ns): No SCD contraindicated: low risk/ambulating Pharmacological prophylaxis: LMWH Lines/Catheters IV Catheter Type (from Nrsg): Mid Line Central line still needed: No Urinary Cath still in place: No Assessment/Plan Assessment/Plan 1. Cancer of the left and left breast. Exact type at this time unknown.MULTIPLE BONY METS, PULMONARY METS 2. Severe pain in the interscapular and lumbar sacral area most probably metastatic lesion possible femoral fracture. pathologic fracture of T9 with 60% of loss of height. Neurosurgical consult planned. 3. Obesity. 4. Weight loss 60 pounds during the last 2 years by diet 5. PMS. 6. Myopia. 7. Anemia chronic disease. 8. Anxiety disorder. 9. Posttraumatic stress disorder. 10. Pain in the left forearm with a history of fracture of ulna and radius. 11. Tachycardia 12. Hypoxemia at night marginal improved after 2 L of nasal cannula oxygen. 13. Process at night. 14. 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 15.Pain syndrome. 16.peripheric neuropathy 17.weight gain? Subjective 24 Hr Interval Summary Free Text/Dictation Numbness of both lower extremities distally. They are very cold despite overeating socks. I feel sometimes tingling sensations. Back pain starting from scapular and interscapular areas upper and lower back and pelvic area is more tolerable I can turn from right to left side with less worsening of the pain intensity. Constitutional: no complaints, improved, disoriented, poor po; No chills, No diaphoresis, No febrile, No requiring IVF, No requiring O2, No other Eyes: discharge, redness; No no complaints, No pain, No visual change, No other ENT: no complaints, pain, congestion, sore throat; No bleeding, No discharge, No dysphagia, No other Respiratory: pain, cough, pleuritic pain, shortness of breath; No no complaints, No sputum, No wheezing, No other Cardiovascular: chest pain, edema; No no complaints, No lightheadedness, No orthopenea, No palpitations, No paroxysmal nocturnal dyspnea, No other Gastrointestinal: constipation; No no complaints, No pain, No blood, No decreased appetite, No diarrhea, No flatus, No nausea, No passing stool, No vomiting, No other Genitourinary: dysuria; No no complaints, No bleeding, No discharge, No flank pain, No hematuria, No other Musculoskeletal: back pain, bone/joint pain, neck pain; No no complaints, No restricted range of motion, No swelling, No other Neurologic: dizziness, headache; No no complaints, No confusion, No focal-weakness, No syncope, No seizure, No other Psychological: anxiety; No no complaints, No nl mood/affect, No confusion, No depression, No suicidal, No other Exam/Review of Systems Vital Signs Vitals Vital Signs Date Temp Pulse Resp B/P (MAP) Pulse Ox O2 O2 Flow FiO2 Time Delivery Rate 05/25/18 98.1 16:15 05/25/18 92 17 101/58 94 Room Air 15:02 (72) Intake and Output 05/24/18 05/24/18 05/25/18 1515:00 23:00 07:00 IntakeIntake Total 360 ml 1440 ml BalanceBalance 360 ml 1440 ml Exam Constitutional: alert, oriented, well developed, distress, frail Psych: anxiety, depression; No no complaints, No nl mood/affect, No confusion, No suicidal, No other Head: normocephalic, atraumatic; No lacerations, No hematomas, No other Eyes: nl conjunctiva, EOMI, nl lids, PERRL; No nl sclera, No icteric, No fundi, disc, No other ENMT: nl external ears & nose, nl nasal mucosa & septum; No nl lips & teeth, No mucosa pink and moist, No intubated, No tympanic membranes, No other Neck: non-tender, jvd, bruits; No supple, No masses, No thyromegaly, No nuchal rigidity, No other Respiratory: normal air movement, congested cough, diminished breath sounds; No clear to auscultation, No crackles/rales, No intercostal retraction, No labored breathing, No respirations, No tactile fremitus, No wheezing, No other Cardiovascular: nl pulses, bruits, jugular venous distention (JVD); No regular rate and rhythm, No diastolic murmur, No edema, No gallop, No irregular rhythm, No murmurs/extra sounds, No rub, No systolic murmur, No S3, No S4, No other Gastrointestinal: soft, nl liver, spleen Genitourinary - Female: CVA tenderness; No nl adnexae, No nl external genitalia, No CMT, No uterus, No other Musculoskeletal: joint tenderness, muscle tone, muscle weakness; No nl extremities to inspection, No nl gait and stance, No range of motion, No spine non-tender, No swelling, No other Extremities: normal pulses; No calf tenderness, No cyanosis, No clubbing, No edema, No pitting pedal edema, No palpable cord, No tenderness, No other 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, nl mental status; No nl speech, No nl strength, No confused, No DTR's symmetric, No focal weakness, No lethargic, No numbness, No reflexes, No unresponsive, No other Skin: rash or lesions; No nl turgor, No diaphoresis, No ecchymosis, No laceration, No puncture, No other Lymph: No nl lymph nodes, No enlarged, No nontender, No other Medications Medications Current Medications Anastrozole (Arimidex) 1 mg DAILY PO Last administered on 05/25/18 09:24; Admin Dose 1 MG; Start 04/25/18 at 19:00 Zolpidem Tartrate (Ambien) 10 mg HS PRN PO INSOMNIA; Start 04/25/18 at 23:30 Lorazepam (Ativan) 0.5 mg TID PRN PO ANXIETY Last administered on 05/20/18 20 :55; Admin Dose 0.5 MG; Start 04/25/18 at 23:30 Magnesium Hydroxide (Milk Of Mag) 30 ml DAILY PRN PO CONSTIPATION Last administered on 04/29/18 09:04; Admin Dose 30 ML; Start 04/27/18 at 21:00 Morphine Sulfate (morphine) 3 mg Q4H PRN IV SEVERE PAIN LEVEL 7-10 Last administered on 05/25/18 17:28; Admin Dose 3 MG; Start 04/27/18 at 21:00 Amlodipine Besylate (Norvasc) 5 mg BID PO Last administered on 05/25/18 09:15; Admin Dose 5 MG; Start 04/28/18 at 04:00 Polyethylene Glycol (Miralax) 17 gm BID PO Last administered on 05/24/18 09:38; Admin Dose 17 GM; Start 04/29/18 at 21:00 Docusate Sodium (Colace) 200 mg BID PO Last administered on 05/25/18 09:22; Admin Dose 200 MG; Start 04/29/18 at 21:00 Benazepril HCl (Lotensin) 5 mg BID PO Last administered on 05/25/18 09:22; Admin Dose 5 MG; Start 04/29/18 at 21:00 Oxycodone HCl (Oxycontin) 20 mg BID PO Last administered on 05/25/18 09:24; Admin Dose 20 MG; Start 05/01/18 at 21:00 Enoxaparin Sodium (Lovenox) 40 mg DAILY SC Last administered on 05/25/18 09:24; Admin Dose 40 MG; Start 05/24/18 at 09:00 Results Result Diagram: 05/24/18 0433 05/24/18 0433 RUSS JEROME MD May 25, 2018 19:29
[2018-05-26] MEDS: morphine 4 MG/ML VIAL IV PRN ×5 (02:27→20:50)
[2018-05-26 02:40] VITALS: BP 119/64; PULSE 97; RESP 20
[2018-05-26 07:30] VITALS: BP 100/57; PULSE 89; RESP 18
[2018-05-26] MEDS: oxyCODONE (CR) 20 MG TAB [oxyCONTIN] PO SCH ×2 (08:55→20:50)
[2018-05-26] MEDS: POLYETHYLENE GLYCOL 17 GM PACKET PO SCH ×2 (08:55→20:53)
[2018-05-26] MEDS: DOCUSATE SODIUM 100 MG CAP PO SCH ×2 (08:55→20:50)
[2018-05-26] MEDS: ANASTROZOLE 1 MG TAB PO SCH (08:56)
[2018-05-26] MEDS: ENOXAPARIN 40 MG/0.4 ML SYG SC SCH (08:57)
[2018-05-26] MEDS: BENAZEPRIL 5 MG TAB PO SCH ×2 (09:00→20:51)
[2018-05-26] MEDS: AMLODIPINE 5 MG TAB PO SCH ×2 (09:00→20:51)
--- NOTE | 2018-05-26 09:51 | CONS ---
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 Expansion of the posterior T9 vertebral body resulting in central canal stenosis with AP diameter measuring 8 mm. DC ORAL DECADRON CONT AI PAIN CONTROL MRI C - SPINE AND R HIP NOTED BONE SCAN -Multiple skeletal metastases in the axial and appendicular skeleton COMPLETED XRT PLAN CHEMO R FEMORAL LESION Because of the extensive and widespread metastatic lesion inv olving both vestibular part and proximal femoral part of the right hip and even if any surgical procedure is considered, she will need a special custom made acetabular part and proximal femoral part, which can be done in a [facility] center, probably by oncologic orthopedic surgeon. Even if surgery is considered and she needs to be transferred to a [facility] for the higher level of care including evaluation and care by oncology orthopedic surgeon, it is possible that because of the extensiveness of the metastatic lesions further surgical treatment may not be the recommended. PAIN CONT OXYCONTIN POOR IV ACCESS- WILL D/W PT- SHE WILL NEEDS PICC OR PORTACATH Obesity. Weight loss 60 pounds during the last 2 years by diet PMS. Myopia. Anemia chronic disease. Anxiety disorder. Posttraumatic stress disorder. Pain in the left forearm with a history of fracture of ulna and radius. 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 Date/Type/Reason Admit Date/Time Apr 25, 2018 at 14:37 Initial Consult Date 04/25/18 Requesting Provider: RUSS JEROME MD 24 HR Interval Summary Free Text/Dictation all noted Exam/Review of Systems Vital Signs Vitals Vital Signs Date Temp Pulse Resp B/P (MAP) Pulse Ox O2 O2 Flow FiO2 Time Delivery Rate 05/26/18 99.0 89 18 100/57 94 Room Air 07:30 (71) Intake and Output 05/25/18 05/25/18 05/26/18 1414:59 22:59 06:59 IntakeIntake Total 680 ml 300 ml BalanceBalance 680 ml 300 ml Exam Constitutional: alert, oriented, well developed, distress, frail; No non-verbal, No other Psych: anxiety, depression; No no complaints, No nl mood/affect, No confusion, No suicidal, No other Head: normocephalic, atraumatic; No lacerations, No hematomas, No other Eyes: EOMI, nl lids, PERRL; No nl conjunctiva, No nl sclera, No icteric, No fundi, disc, No other ENMT: tympanic membranes; No nl external ears & nose, No nl lips & teeth, No nl nasal mucosa & septum, No mucosa pink and moist, No intubated, No other Neck: supple, non-tender, jvd, bruits; No masses, No thyromegaly, No nuchal rigidity, No other Respiratory: clear to auscultation, normal air movement, crackles/rales, d iminished breath sounds, respirations; No congested cough, No intercostal retraction, No labored breathing, No tactile fremitus, No wheezing, No other Cardiovascular: regular rate and rhythm, bruits, jugular venous distention (JVD), systolic murmur; No nl pulses, No diastolic murmur, No edema, No gallop, No irregular rhythm, No murmurs/extra sounds, No rub, No S3, No S4, No other Gastrointestinal: soft, non-tender, bowel sounds, distended, hepatomegaly, other (Obesity with thick fatty layer of the anterior abdominal wall with no rebound.); No nl liver, spleen, No ascites, No firm, No mass, No rebound or guarding, No splenomegaly, No surgical scars, No tender Genitourinary - Female: nl adnexae, nl external genitalia, CVA tenderness; No CMT, No uterus, No other Musculoskeletal: joint tenderness, muscle tone, muscle weakness, spine non- tender (Severe tenderness of the intrascapular area lumbosacral area with great difficulty to get up to move. 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; No nl mental status, No nl speech, No nl strength, No confused, No DTR's symmetric, No focal weakness, No lethargic, No numbness, No reflexes, No unresponsive, No other Skin: nl turgor; No rash or lesions, No diaphoresis, No ecchymosis, No laceration, No puncture, No other Lymph: No nl lymph nodes, No enlarged, No nontender, No other BREAST- LARGE L BREAST MASS Medications Medications Current Medications Anastrozole (Arimidex) 1 mg DAILY PO Last administered on 05/26/18 08:56; Admin Dose 1 MG; Start 04/25/18 at 19:00 Zolpidem Tartrate (Ambien) 10 mg HS PRN PO INSOMNIA; Start 04/25/18 at 23:30 Lorazepam (Ativan) 0.5 mg TID PRN PO ANXIETY Last administered on 05/20/18 20:55; Admin Dose 0.5 MG; Start 04/25/18 at 23:30 Magnesium Hydroxide (Milk Of Mag) 30 ml DAILY PRN PO CONSTIPATION Last administered on 04/29/18 09:04; Admin Dose 30 ML; Start 04/27/18 at 21:00 Morphine Sulfate (morphine) 3 mg Q4H PRN IV SEVERE PAIN LEVEL 7-10 Last administered on 05/26/18 06:36; Admin Dose 3 MG; Start 04/27/18 at 21:00 Amlodipine Besylate (Norvasc) 5 mg BID PO Last administered on 05/25/18 09:15; Admin Dose 5 MG; Start 04/28/18 at 04:00 Polyethylene Glycol (Miralax) 17 gm BID PO Last administered on 05/26/18 08:55; Admin Dose 17 GM; Start 04/29/18 at 21:00 Docusate Sodium (Colace) 200 mg BID PO Last administered on 05/26/18 08:55; Admin Dose 200 MG; Start 04/29/18 at 21:00 Benazepril HCl (Lotensin) 5 mg BID PO Last administered on 05/25/18 09:22; Admin Dose 5 MG; Start 04/29/18 at 21:00 Oxycodone HCl (Oxycontin) 20 mg BID PO Last administered on 05/26/18 08:55; Admin Dose 20 MG; Start 05/01/18 at 21:00 Enoxaparin Sodium (Lovenox) 40 mg DAILY SC Last administered on 05/26/18at 08:57; Admin Dose 40 MG; Start 05/24/18 at 09:00 Results Result Diagram: 05/26/18 0437 05/26/18 0437 Results 24 hrs Laboratory Tests Test 05/26/18 04:37 White Blood Count 1.8 #L Red Blood Count 3.54 L Hemoglobin 11.1 L Hematocrit 34.7 L Mean Corpuscular Volume 98.0 Mean Corpuscular Hemoglobin 31.4 Mean Corpuscular Hemoglobin Concent 32.0 Red Cell Distribution Width 15.5 H Platelet Count 99 #L Mean Platelet Volume 9.3 Immature Granulocytes % 0.600 H Neutrophils % 68.0 Lymphocytes % 13.4 L Monocytes % 14.0 H Eosinophils % 3.4 Basophils % 0.6 Nucleated Red Blood Cells % 0.0 Immature Granulocytes # 0.010 Neutrophils # 1.2 L Lymphocytes # 0.2 L Monocytes # 0.3 Eosinophils # 0.1 Basophils # 0.0 Nucleated Red Blood Cells # 0.0 Sodium Level 133 L Potassium Level 4.1 Chloride Level 104 Carbon Dioxide Level 24 Anion Gap 5 Blood Urea Nitrogen 16 Creatinine 0.36 L Est Glomerular Filtrat Rate mL/min > 60 Glucose Level 96 Calcium Level 7.7 L DES DUNAWAY MD May 26, 2018 09:51
--- NOTE | 2018-05-26 12:00 | PN ---
Date/Time of Note Date/Time of Note DATE: 05/26/18 TIME: 11:53 Assessment/Plan VTE Prophylaxis Risk score (from Nsg)>0 risk: 4 SCD applied (from Nsg): Yes SCD contraindicated: low risk/ambulating Pharmacological prophylaxis: LMWH Lines/Catheters IV Catheter Type (from Nrsg): Mid Line Urinary Cath still in place: No Reason Cath still needed: urinary retention Assessment/Plan Assessment/Plan 1. Cancer of the left and left breast. Exact type at this time unknown.MULTIPLE BONY METS, PULMONARY METS 2. Severe pain in the interscapular and lumbar sacral area most probably metastatic lesion possible femoral fracture. pathologic fracture of T9 with 60% of loss of height. Neurosurgical consult planned. 3. Obesity. 4. Weight loss 60 pounds during the last 2 years by diet 5. PMS. 6. Myopia. 7. Anemia chronic disease. 8. Anxiety disorder. 9. Posttraumatic stress disorder. 10. Pain in the left forearm with a history of fracture of ulna and radius. 11. Tachycardia 12. Hypoxemia at night marginal improved after 2 L of nasal cannula oxygen. 13. Process at night. 14. 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 15. Pain syndrome. 16. Hyponatremia 17. Leukopenia Subjective 24 Hr Interval Summary Free Text/Dictation Tolerable back pain. Sleep is improved. Discussed with Dr. Palomino to plan to discharge to group home facility with organizational treatment as an outpatient. Constitutional: requiring O2; No no complaints, No improved, No chills, No diaphoresis, No disoriented, No febrile, No poor po, No requiring IVF, No other Eyes: discharge; No no complaints, No pain, No redness, No visual change, No other ENT: no complaints, congestion; No bleeding, No pain, No discharge, No dysphagia, No sore throat, No other Respiratory: cough, pleuritic pain, shortness of breath; No no complaints, No pain, No sputum, No wheezing, No other Cardiovascular: chest pain; No no complaints, No edema, No lightheadedness, No orthopenea, No palpit ations, No paroxysmal nocturnal dyspnea, No other Gastrointestinal: decreased appetite, flatus, nausea; No no complaints, No pain, No blood, No constipation, No diarrhea, No passing stool, No vomiting, No other Genitourinary: dysuria; No no complaints, No bleeding, No discharge, No flank pain, No hematuria, No other Musculoskeletal: back pain, bone/joint pain, neck pain; No no complaints, No restricted range of motion, No swelling, No other Skin: bruising, pruritis, rash; No no complaints, No erythema, No laceration, No skin lesions, No other Neurologic: confusion, dizziness, headache; No no complaints, No focal-weakness, No syncope, No seizure, No other Endocrine: polydypsia, dry skin; No no complaints, No polyuria, No temp intolerance, No other Lymphatic: No no complaints, No adenopathy, No tender nodes, No lymphadema, No other Psychological: anxiety, depression; No no complaints, No nl mood/affect, No confusion, No suicidal, No other Exam/Review of Systems Vital Signs Vitals Vital Signs Date Temp Pulse Resp B/P (MAP) Pulse Ox O2 O2 Flow FiO2 Time Delivery Rate 05/26/18 99.0 89 18 100/57 94 Room Air 07:30 (71) Intake and Output 05/25/18 05/25/18 05/26/18 1515:00 23:00 07:00 IntakeIntake Total 680 ml 300 ml BalanceBalance 680 ml 300 ml Exam Constitutional: alert, oriented, well developed, distress, frail Psych: nl mood/affect, anxiety, depression; No no complaints, No confusion, No suicidal, No other Head: normocephalic, atraumatic; No lacerations, No hematomas, No other Eyes: EOMI, nl lids; No nl conjunctiva, No nl sclera, No PERRL, No icteric, No fundi, disc, No other ENMT: nl external ears & nose, nl nasal mucosa & septum; No nl lips & teeth, No mucosa pink and moist, No intubated, No tympanic membranes, No other Neck: non-tender, jvd; No supple, No bruits, No masses, No thyromegaly, No nuchal rigidity, No other Respiratory: clear to auscultation, normal air movement, diminished breath sounds; No congested cough, No crackles/rales, No intercostal retraction, No labored breathing, No respirations, No tactile fremitus, No wheezing, No other Cardiovascular: regular rate and rhythm, nl pulses; No bruits, No diastolic murmur, No edema, No gallop, No irregular rhythm, No jugular venous distention (JVD), No murmurs/extra sounds, No rub, No systolic murmur, No S3, No S4, No other Gastrointestinal: soft, nl liver, spleen, bowel sounds, distended; No non-tender, No ascites, No firm, No hepatomegaly, No mass, No rebound or guarding, No splenomegaly, No surgical scars, No tender, No other Musculoskeletal: joint tenderness, muscle tone, muscle weakness, other (Generalized body ache and pain in the back area persists. 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 Skin: nl turgor, ecchymosis; No rash or lesions, No diaphoresis, No laceration, No puncture, No other Lymph: No nl lymph nodes, No enlarged, No nontender, No other Medications Medications Current Medications Anastrozole (Arimidex) 1 mg DAILY PO Last administered on 05/26/18at 08:56; Admin Dose 1 MG; Start 04/25/18 at 19:00 Zolpidem Tartrate (Ambien) 10 mg HS PRN PO INSOMNIA; Start 04/25/18 at 23:30 Lorazepam (Ativan) 0.5 mg TID PRN PO ANXIETY Last administered on 05/20/18at 20:55; Admin Dose 0.5 MG; Start 04/25/18 at 23:30 Magnesium Hydroxide (Milk Of Mag) 30 ml DAILY PRN PO CONSTIPATION Last administered on 04/29/18at 09:04; Admin Dose 30 ML; Start 04/27/18 at 21:00 Morphine Sulfate (morphine) 3 mg Q4H PRN IV SEVERE PAIN LEVEL 7-10 Last administered on 05/26/18at 11:22; Admin Dose 3 MG; Start 04/27/18 at 21:00 Amlodipine Besylate (Norvasc) 5 mg BID PO Last administered on 05/25/18at 09:15; Admin Dose 5 MG; Start 04/28/18 at 04:00 Polyethylene Glycol (Miralax) 17 gm BID PO Last administered on 05/26/18at 08:55; Admin Dose 17 GM; Start 04/29/18 at 21:00 Docusate Sodium (Colace) 200 mg BID PO Last administered on 05/26/18at 08:55; Admin Dose 200 MG; Start 04/29/18 at 21:00 Benazepril HCl (Lotensin) 5 mg BID PO Last administered on 05/25/18at 09:22; Admin Dose 5 MG; Start 04/29/18 at 21:00 Oxycodone HCl (Oxycontin) 20 mg BID PO Last administered on 05/26/18at 08:55; Admin Dose 20 MG; Start 05/01/18 at 21:00 Enoxaparin Sodium (Lovenox) 40 mg DAILY SC Last administered on 05/26/18at 08:57; Admin Dose 40 MG; Start 05/24/18 at 09:00 Results Result Diagram: 05/26/18 0437 05/26/18 0437 Results 24 hrs Laboratory Tests Test 05/26/18 04:37 White Blood Count 1.8 #L Red Blood Count 3.54 L Hemoglobin 11.1 L Hematocrit 34.7 L Mean Corpuscular Volume 98.0 Mean Corpuscular Hemoglobin 31.4 Mean Corpuscular Hemoglobin Concent 32.0 Red Cell Distribution Width 15.5 H Platelet Count 99 #L Mean Platelet Volume 9.3 Immature Granulocytes % 0.600 H Neutrophils % 68.0 Lymphocytes % 13.4 L Monocytes % 14.0 H Eosinophils % 3.4 Basophils % 0.6 Nucleated Red Blood Cells % 0.0 Immature Granulocytes # 0.010 Neutrophils # 1.2 L Lymphocytes # 0.2 L Monocytes # 0.3 Eosinophils # 0.1 Basophils # 0.0 Nucleated Red Blood Cells # 0.0 Sodium Level 133 L Potassium Level 4.1 Chloride Level 104 Carbon Dioxide Level 24 Anion Gap 5 Blood Urea Nitrogen 16 Creatinine 0.36 L Est Glomerular Filtrat Rate mL/min > 60 Glucose Level 96 Calcium Level 7.7 L RUSS JEROME MD May 26, 2018 12:00
[2018-05-26 15:31] VITALS: BP 104/65; PULSE 103; RESP 18
[2018-05-26 20:34] VITALS: BP 105/61; PULSE 107; RESP 18
[2018-05-26] MEDS: LORAZEPAM 0.5 MG TAB PO PRN (20:50)
[2018-05-27] MEDS: morphine 4 MG/ML VIAL IV PRN ×3 (05:34→19:27)
[2018-05-27 07:53] VITALS: BP 109/65; PULSE 92; RESP 19
[2018-05-27] MEDS: AMLODIPINE 5 MG TAB PO SCH ×2 (09:00→20:37)
[2018-05-27] MEDS: BENAZEPRIL 5 MG TAB PO SCH ×2 (09:00→20:37)
[2018-05-27] MEDS: DOCUSATE SODIUM 100 MG CAP PO SCH ×2 (09:21→20:36)
[2018-05-27] MEDS: oxyCODONE (CR) 20 MG TAB [oxyCONTIN] PO SCH ×2 (09:22→20:36)
[2018-05-27] MEDS: ANASTROZOLE 1 MG TAB PO SCH (09:23)
[2018-05-27] MEDS: POLYETHYLENE GLYCOL 17 GM PACKET PO SCH ×2 (09:24→20:37)
[2018-05-27] MEDS: ENOXAPARIN 40 MG/0.4 ML SYG SC SCH (09:25)
--- NOTE | 2018-05-27 11:45 | CONS ---
Date/Time of Note Date/Time of Note DATE: 05/27/18 TIME: 11:44 Assessment/Plan Assessment/Plan Chief Complaint/Hosp Course METASTATIC BREAST Cancer ( PRIMARY IS IN THE L BREAST ) with MULTIPLE BONY METS, PULMONARY METS SEVERE T-L SPINE PAIN WITH DIFFICULTIES TO AMBULATE MRI T-L SPINE- Diffuse osseous metastatic disease of the visualized thoracic spine (T10 - T12), the entire lumbar spine, sacrum, and bilateral iliac bones. Expansion of the posterior T9 vertebral body resulting in central canal stenosis with AP diameter measuring 8 mm. DC ORAL DECADRON CONT AI PAIN CONTROL MRI C - SPINE AND R HIP NOTED BONE SCAN -Multiple skeletal metastases in the axial and appendicular skeleton COMPLETED XRT PLAN CHEMO PORTACATH PLACEMENT R FEMORAL LESION Because of the extensive and widespread metastatic lesion involving both vestibular part and proximal femoral part of the right hip and even if any surgical procedure is considered, she will need a special custom made acetabular part and proximal femoral part, which can be done in a [facility], probably by oncologic orthopedic surgeon. Even if surgery is considered and she needs to be transferred to a [facility] for the higher level of care including evaluation and care by oncology orthopedic surgeon, it is possible that because of the extensiveness of the metastatic lesions further surgical treatment may not be the recommended. PAIN CONT OXYCONTIN POOR IV ACCESS- WILL D/W PT- SHE WILL NEEDS PICC OR PORTACATH Obesity. Weight loss 60 pounds during the last 2 years by diet PMS. Myopia. Anemia chronic disease. Anxiety disorder. Posttraumatic stress disorder. Pain in the left forearm with a history of fracture of ulna and radius. Tachycardia Incomplete data SOCIAL ISSUES [employer] Consultation Date/Type/Reason Admit Date/Time Apr 25, 2018 at 14:37 Initial Consult Date 04/25/18 Requesting Provider: RUSS JEROME MD 24 HR Interval Summary Free Text/Dictation ALL NOTED NAD Exam/Review of Systems Vital Signs Vitals Vital Signs Date Temp Pulse Resp B/P (MAP) Pulse Ox O2 O2 Flow FiO2 Time Delivery Rate 05/27/18 98.2 92 19 109/65 96 07:53 (80) 05/26/18 Room Air 15:31 Intake and Output 05/26/18 05/26/18 05/27/18 1414:59 22:59 06:59 IntakeIntake Total 340 ml 300 ml BalanceBalance 340 ml 300 ml Exam Constitutional: alert, oriented, well developed, distress, frail; No non-verbal, No other Psych: anxiety, depression; No no complaints, No nl mood/affect, No confusion, No suicidal, No other Head: normocephalic, atraumatic; No lacerations, No hematomas, No other Eyes: EOMI, nl lids, PERRL; No nl conjunctiva, No nl sclera, No icteric, No fundi, disc, No other ENMT: tympanic membranes; No nl external ears & nose, No nl lips & teeth, No nl nasal mucosa & septum, No mucosa pink and moist, No intubated, No other Neck: supple, non-tender, jvd, bruits; No masses, No thyromegaly, No nuchal rigidity, No other Respiratory: clear to auscultation, normal air movement, crackles/rales, diminished breath sounds, respirations; No congested cough, No intercostal retraction, No labored breathing, No tactile fremitus, No wheezing, No other Cardiovascular: regular rate and rhythm, bruits, jugular venous distention (JVD), systolic murmur; No nl pulses, No diastolic murmur, No edema, No gallop, No irregular rhythm, No murmurs/extra sounds, No rub, No S3, No S4, No other Gastrointestinal: soft, non-tender, bowel sounds, distended, hepatomegaly, other (Obesity with thick fatty layer of the anterior abdominal wall with no rebound.); No nl liver, spleen, No ascites, No firm, No mass, No rebound or guarding, No splenomegaly, No surgical scars, No tender Genitourinary - Female: nl adnexae, nl external genitalia, CVA tenderness; No CMT, No uterus, No other Musculoskeletal: joint tenderness, muscle tone, muscle weakness, spine non- tender (Severe tenderness of the intrascapular area lumbosacral area with great difficulty to get up to move. 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; No nl mental status, No nl speech, No nl strength, No confused, No DTR's symmetric, No focal weakness, No lethargic, No numbness, No reflexes, No unresponsive, No other Skin: nl turgor; No rash or lesions, No diaphoresis, No ecchymosis, No laceration, No puncture, No other Lymph: No nl lymph nodes, No enlarged, No nontender, No other BREAST- LARGE L BREAST MASS Medications Medications Current Medications Anastrozole (Arimidex) 1 mg DAILY PO Last administered on 05/27/18 09:23; Admin Dose 1 MG; Start 04/25/18 at 19:00 Zolpidem Tartrate (Ambien) 10 mg HS PRN PO INSOMNIA; Start 04/25/18 at 23:30 Lorazepam (Ativan) 0.5 mg TID PRN PO ANXIETY Last administered on 05/26/18 20:50; Admin Dose 0.5 MG; Start 04/25/18 at 23:30 Magnesium Hydroxide (Milk Of Mag) 30 ml DAILY PRN PO CONSTIPATION Last administered on 04/29/18 09:04; Admin Dose 30 ML; Start 04/27/18 at 21:00 Morphine Sulfate (morphine) 3 mg Q4H PRN IV SEVERE PAIN LEVEL 7-10 Last administered on 05/27/18 05:34; Admin Dose 3 MG; Start 04/27/18 at 21:00 Amlodipine Besylate (Norvasc) 5 mg BID PO Last administered on 05/26/18 20:51; Admin Dose 5 MG; Start 04/28/18 at 04:00 Polyethylene Glycol (Miralax) 17 gm BID PO Last administered on 05/27/18 09:24; Admin Dose 17 GM; Start 04/29/18 at 21:00 Docusate Sodium (Colace) 200 mg BID PO Last administered on 05/27/18 09:21; Admin Dose 200 MG; Start 04/29/18 at 21:00 Benazepril HCl (Lotensin) 5 mg BID PO Last administered on 05/26/18 20:51; Admin Dose 5 MG; Start 04/29/18 at 21:00 Oxycodone HCl (Oxycontin) 20 mg BID PO Last administered on 05/27/18 09:22; Admin Dose 20 MG; Start 05/01/18 at 21:00 Enoxaparin Sodium (Lovenox) 40 mg DAILY SC Last administered on 05/27/18at 09:25; Admin Dose 40 MG; Start 05/24/18 at 09:00 Results Result Diagram: 05/27/18 0440 05/26/18 0437 Results 24 hrs Laboratory Tests Test 05/27/18 04:40 White Blood Count 1.5 L Red Blood Count 3.43 L Hemoglobin 10.6 L Hematocrit 33.6 L Mean Corpuscular Volume 98.0 Mean Corpuscular Hemoglobin 30.9 Mean Corpuscular Hemoglobin Concent 31.5 L Red Cell Distribution Width 15.3 H Platelet Count 96 L Mean Platelet Volume 9.1 Immature Granulocytes % 1.300 H Neutrophils % Segmented Neutrophils % (Manual) 47 Band Neutrophils % (Manual) 18 H Lymphocytes % Lymphocytes % (Manual) 16 Reactive Lymphocytes % (Manual) 1 H Monocytes % Monocytes % (Manual) 9 Eosinophils % Eosinophils % (Manual) 9 H Basophils % Nucleated Red Blood Cells % 0.0 Immature Granulocytes # 0.020 Neutrophils # Neutrophils # (Manual) 0.7 L Band Neutrophils # 0.2 Lymphocytes (Manual) 0.2 L Lymphocytes # Reactive Lymphocytes # 0.0 Monocytes # Monocytes # (Manual) 0.1 L Eosinophils # Basophils # Nucleated Red Blood Cells # Platelet Estimate DECREASED Giant Platelets 1 H Polychromasia 3+ Hypochromasia 2+ Poikilocytosis 1+ Anisocytosis 1+ DES DUNAWAY MD May 27, 2018 11:45
[2018-05-27 20:10] VITALS: BP 100/56; PULSE 102; RESP 19
--- NOTE | 2018-05-27 20:25 | PN ---
Date/Time of Note Date/Time of Note DATE: 05/27/18 TIME: 20:21 Assessment/Plan VTE Prophylaxis Risk score (from Nsg)>0 risk: 6 SCD applied (from Ns): No SCD contraindicated: low risk/ambulating Pharmacological prophylaxis: LMWH Lines/Catheters IV Catheter Type (from Nrsg): Mid Line Central line still needed: No Urinary Cath still in place: No Reason Cath still needed: urinary retention Assessment/Plan Assessment/Plan 1. Cancer of the left and left breast. Exact type at this time unknown.MULTIPLE BONY METS, PULMONARY METS 2. Severe pain in the interscapular and lumbar sacral area most probably metastatic lesion possible femoral fracture. pathologic fracture of T9 with 60% of loss of height. Neurosurgical consult planned. 3. Obesity. 4. Weight loss 60 pounds during the last 2 years by diet 5. PMS. 6. Myopia. 7. Anemia chronic disease. 8. Anxiety disorder. 9. Posttraumatic stress disorder. 10. Pain in the left forearm with a history of fracture of ulna and radius. 11. Tachycardia 12. Hypoxemia at night marginal improved after 2 L of nasal cannula oxygen. 13. Process at night. 14. 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 15. Pain syndrome. 16. Hyponatremia 17. Leukopenia Subjective 24 Hr Interval Summary Free Text/Dictation Upper and lower back pain got worse. Is making great effort to be able sit from sit laying position and stand from sitting position. From 1220 patient started to swelling developed shortness of breath chest to make this to adjustment but she was able to do that. Explained to patient there is high risk of falling and getting approximately 12 metastases recommended not to do any more to decrease the risk of complications. Constitutional: improved, poor po; No no complaints, No chills, No diaphoresis, No disoriented, No febrile, No requiring IVF, No requiring O2, No other Eyes: No no complaints, No pain, No discharge, No redness, No visual change, No other ENT: No no complaints, No bleeding, No pain, No congestion, No discharge, No dysphagia, No sore throat, No other Respiratory: No no complaints, No pain, No cough, No pleuritic pain, No shortness of breath, No sputum, No wheezing, No other Cardiovascular: chest pain, lightheadedness, palpitations; No no complaints, No edema, No orthopenea, No paroxysmal nocturnal dyspnea, No other Gastrointestinal: constipation, flatus, passing stool; No no complaints, No pain, No blood, No decreased appetite, No diarrhea, No nausea, No vomiting, No other Genitourinary: dysuria; No no complaints, No bleeding, No discharge, No flank pain, No hematuria, No other Musculoskeletal: back pain, bone/joint pain; No no complaints, No neck pain, No restricted range of motion, No swelling, No other Skin: pruritis; No no complaints, No bruising, No erythema, No laceration, No rash, No skin lesions, No other Neurologic: confusion, headache; No no complaints, No dizziness, No focal-weakness, No syncope, No seizure, No other Lymphatic: No no complaints, No adenopathy, No tender nodes, No lymphadema, No other Psychological: anxiety; No no complaints, No nl mood/affect, No confusion, No depression, No suicidal, No other Exam/Review of Systems Vital Signs Vitals Vital Signs Date Temp Pulse Resp B/P (MAP) Pulse Ox O2 O2 Flow FiO2 Time Delivery Rate 05/27/18 99.2 102 19 100/56 94 20:10 (71) 05/26/18 Room Air 15:31 Intake and Output 05/26/18 05/26/18 05/27/18 1515:00 23:00 07:00 IntakeIntake Total 340 ml 300 ml BalanceBalance 340 ml 300 ml Exam Constitutional: alert, oriented, well developed, distress, frail; No non-verbal, No obese, No other Psych: anxiety, depression; No no complaints, No nl mood/affect, No confusion, No suicidal, No other Head: normocephalic, atraumatic; No lacerations, No hematomas, No other Eyes: EOMI, nl lids, PERRL; No nl conjunctiva, No nl sclera, No icteric, No fundi, disc, No other ENMT: nl external ears & nose, nl lips & teeth; No nl nasal mucosa & septum, No mucosa pink and moist, No intubated, No tympanic membranes, No other Neck: non-tender, bruits Respiratory: normal air movement, congested cough, diminished breath sounds; No clear to auscultation, No crackles/rales, No intercostal retraction, No labored breathing, No respirations, No tactile fremitus, No wheezing, No other Cardiovascular: nl pulses, bruits; No regular rate and rhythm, No diastolic murmur, No edema, No gallop, No irregular rhythm, No jugular venous distention (JVD), No murmurs/extra sounds, No rub, No systolic murmur, No S3, No S4, No other Gastrointestinal: soft, distended; No nl liver, spleen, No non-tender, No ascites, No bowel sounds, No firm, No hepatomegaly, No mass, No rebound or guarding, No splenomegaly, No surgical scars, No tender, No other Musculoskeletal: nl gait and stance (Septic gait due to of pain and also weakness and deconditioning.), joint tenderness; No nl extremities to inspection, No muscle tone, No muscle weakness, No range of motion, No spine non-tender, No swelling, No other Extremities: tenderness; No normal pulses, No calf tenderness, No cyanosis, No clubbing, No edema, No pitting pedal edema, No palpable cord, No other 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: AUTOMATION LEAD 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 (Hearing impairment cranial nerves VIII.), nl mental status, nl speech, nl strength, numbness (Distally of both lower extremities.); No confused, No DTR's symmetric, No focal weakness, No lethargic, No reflexes, No unresponsive, No other Skin: nl turgor; No rash or lesions, No diaphoresis, No ecchymosis, No laceration, No puncture, No other Lymph: No nl lymph nodes, No enlarged, No nontender, No other Medications Medications Current Medications Anastrozole (Arimidex) 1 mg DAILY PO Last administered on 05/27/18at 09:23; Admin Dose 1 MG; Start 04/25/18 at 19:00 Zolpidem Tartrate (Ambien) 10 mg HS PRN PO INSOMNIA; Start 04/25/18 at 23:30 Lorazepam (Ativan) 0.5 mg TID PRN PO ANXIETY Last administered on 05/26/18at 20:50; Admin Dose 0.5 MG; Start 04/25/18 at 23:30 Magnesium Hydroxide (Milk Of Mag) 30 ml DAILY PRN PO CONSTIPATION Last administered on 04/29/18at 09:04; Admin Dose 30 ML; Start 04/27/18 at 21:00 Morphine Sulfate (morphine) 3 mg Q4H PRN IV SEVERE PAIN LEVEL 7-10 Last administered on 05/27/18 19:27; Admin Dose 3 MG; Start 04/27/18 at 21:00 Amlodipine Besylate (Norvasc) 5 mg BID PO Last administered on 05/26/18at 20:51; Admin Dose 5 MG; Start 04/28/18 at 04:00 Polyethylene Glycol (Miralax) 17 gm BID PO Last administered on 05/27/18 09:24; Admin Dose 17 GM; Start 04/29/18 at 21:00 Docusate Sodium (Colace) 200 mg BID PO Last administered on 05/27/18 09:21; Admin Dose 200 MG; Start 04/29/18 at 21:00 Benazepril HCl (Lotensin) 5 mg BID PO Last administered on 05/26/18 20:51; Admin Dose 5 MG; Start 04/29/18 at 21:00 Oxycodone HCl (Oxycontin) 20 mg BID PO Last administered on 05/27/18 09:22; Admin Dose 20 MG; Start 05/01/18 at 21:00 Enoxaparin Sodium (Lovenox) 40 mg DAILY SC Last administered on 05/27/18 09:25; Admin Dose 40 MG; Start 05/24/18 at 09:00; Status Future Hold Results Result Diagram: 05/27/18 0440 05/26/18 0437 Results 24 hrs Laboratory Tests Test 05/27/18 04:40 White Blood Count 1.5 L Red Blood Count 3.43 L Hemoglobin 10.6 L Hematocrit 33.6 L Mean Corpuscular Volume 98.0 Mean Corpuscular Hemoglobin 30.9 Mean Corpuscular Hemoglobin Concent 31.5 L Red Cell Distribution Width 15.3 H Platelet Count 96 L Mean Platelet Volume 9.1 Immature Granulocytes % 1.300 H Neutrophils % Segmented Neutrophils % (Manual) 47 Band Neutrophils % (Manual) 18 H Lymphocytes % Lymphocytes % (Manual) 16 Reactive Lymphocytes % (Manual) 1 H Monocytes % Monocytes % (Manual) 9 Eosinophils % Eosinophils % (Manual) 9 H Basophils % Nucleated Red Blood Cells % 0.0 Immature Granulocytes # 0.020 Neutrophils # Neutrophils # (Manual) 0.7 L Band Neutrophils # 0.2 Lymphocytes (Manual) 0.2 L Lymphocytes # Reactive Lymphocytes # 0.0 Monocytes # Monocytes # (Manual) 0.1 L Eosinophils # Basophils # Nucleated Red Blood Cells # Platelet Estimate DECREASED Giant Platelets 1 H Polychromasia 3+ Hypochromasia 2+ Poikilocytosis 1+ Anisocytosis 1+ RUSS JEROME MD May 27, 2018 20:25
[2018-05-27] MEDS: LORAZEPAM 0.5 MG TAB PO PRN (20:36)
[2018-05-28] MEDS: LORAZEPAM 0.5 MG TAB PO PRN ×3 (01:02→21:41)
[2018-05-28] MEDS: morphine 4 MG/ML VIAL IV PRN ×6 (01:02→22:44)
[2018-05-28 02:25] VITALS: BP 108/66; PULSE 96; RESP 18
[2018-05-28 08:20] VITALS: BP 119/62; PULSE 87; RESP 19
[2018-05-28] MEDS: oxyCODONE (CR) 20 MG TAB [oxyCONTIN] PO SCH ×2 (09:48→21:41)
[2018-05-28] MEDS: DOCUSATE SODIUM 100 MG CAP PO SCH ×2 (09:48→21:41)
[2018-05-28] MEDS: BENAZEPRIL 5 MG TAB PO SCH ×2 (09:49→21:41)
[2018-05-28] MEDS: AMLODIPINE 5 MG TAB PO SCH ×2 (09:50→21:41)
[2018-05-28] MEDS: POLYETHYLENE GLYCOL 17 GM PACKET PO SCH ×2 (09:50→21:00)
[2018-05-28] MEDS: ANASTROZOLE 1 MG TAB PO SCH (09:51)
[2018-05-28 15:49] VITALS: BP_SYST 109; BP_DIAS 30; BP_DIAS 60; PULSE 92; RESP 18
--- NOTE | 2018-05-28 16:00 | PREAC ---
Date/Time of Note Date/Time of Note DATE: 05/28/18 TIME: 15:58 Anesthesia Eval and Record Evaluation Time Pre-Procedure Interview DATE: 05/28/18 TIME: 15:58 Age 58 Sex female NPO: 8 hrs Preoperative diagnosis breast cancer Planned procedure Portacath insertion Past Medical History Past Medical History: Includes Cardio: HTN, Dyslipidemia Endo: Other (Left breast cancer) GI: GERD Heme: Anemia Psych: Anxiety Surgery & Anesthesia Issues No known issue Meds Anticoagulation: No Beta Alana within 24 hr: No Reason Beta Alana not given: Pt. not on B-Alana Current Medications Anastrozole (Arimidex) 1 mg DAILY PO Last administered on 05/28/18 09:51; Admin Dose 1 MG; Start 04/25/18 at 19:00 Zolpidem Tartrate (Ambien) 10 mg HS PRN PO INSOMNIA; Start 04/25/18 at 23:30 Lorazepam (Ativan) 0.5 mg TID PRN PO ANXIETY Last administered on 05/28/18 09:48; Admin Dose 0.5 MG; Start 04/25/18 at 23:30 Magnesium Hydroxide (Milk Of Mag) 30 ml DAILY PRN PO CONSTIPATION Last administered on 04/29/18at 09:04; Admin Dose 30 ML; Start 04/27/18 at 21:00 Morphine Sulfate (morphine) 3 mg Q4H PRN IV SEVERE PAIN LEVEL 7-10 Last administered on 05/28/18at 15:23; Admin Dose 3 MG; Start 04/27/18 at 21:00 Amlodipine Besylate (Norvasc) 5 mg BID PO Last administered on 05/28/18at 09:50; Admin Dose 5 MG; Start 04/28/18 at 04:00 Polyethylene Glycol (Miralax) 17 gm BID PO Last administered on 05/28/18 09:50; Admin Dose 17 GM; Start 04/29/18 at 21:00 Docusate Sodium (Colace) 200 mg BID PO Last administered on 05/28/18 09:48; Admin Dose 200 MG; Start 04/29/18 at 21:00 Benazepril HCl (Lotensin) 5 mg BID PO Last administered on 05/28/18at 09:49; Admin Dose 5 MG; Start 04/29/18 at 21:00 Oxycodone HCl (Oxycontin) 20 mg BID PO Last administered on 05/28/18at 09:48; Admin Dose 20 MG; Start 05/01/18 at 21:00 Enoxaparin Sodium (Lovenox) 40 mg DAILY SC Last administered on 05/27/18at 09:25; Admin Dose 40 MG; Start 05/24/18 at 09:00; Status Hold Ondansetron HCl 8 mg/Dexamethasone 4 mg/Sodium Chloride 55 ml @ 252 mls/hr ONCE ONCE IV ; Start 05/29/18 at 12:00; Stop 05/29/18 at 12:13; Status UNV Diphenhydramine HCl (Benadryl) 25 mg ONCE ONCE IV ; Start 05/29/18 at 12:00; Stop 05/29/18 at 12:01; Status UNV Docetaxel 70 mg/ Sodium Chloride 250 ml @ 250 mls/hr ONCE ONCE IV ; Start 05/29/18 at 12:00; Stop 05/29/18 at 12:59; Status UNV Meds reviewed: Yes Allergies Coded Allergies: No Known Allergy (Unverified , 04/25/18) Allergies Reviewed: Yes Labs/Studies Labs Reviewed: Reviewed by anesthesiologist Result Diagram: 05/27/18 0440 05/26/18 0437 test: N/A Studies: 2D Echo (EF 65%) Pre-procedure Exam Last vitals Vital Signs Date Temp Pulse Resp B/P (MAP) Pulse Ox O2 O2 Flow FiO2 Time Delivery Rate 05/28/18 92 18 109/30 98 15:49 (56) 05/28/18 98.2 08:20 05/26/18 Room Air 15:31 Airway: Adequate mouth opening Mallampati: Mallampati II Teeth: Normal Lung: Normal Heart: Normal ASA Physical Status ASA physical status: 3 Emergency: None Planned Anesthetic General/MAC: MAC Pre-operative Attestations Prior to commencing anesthesia and surgery, the patient was re-evaluated, there was verification of: *The patient's identity *The results of appropriate recent lab work and preoperative vital signs *The above evaluation not changing prior to induction *Anesthetic plan, risk benefits, alternative and complications discussed with patient/family; questions answered; patient/family understands, accepts and wishes to proceed. MJ HARDIN May 28, 2018 16:00
--- NOTE | 2018-05-28 18:29 | PN ---
Date/Time of Note Date/Time of Note DATE: 05/28/18 TIME: 18:25 Assessment/Plan VTE Prophylaxis Risk score (from Ns)>0 risk: 3 SCD applied (from Ns): No SCD contraindicated: low risk/ambulating Pharmacological prophylaxis: LMWH Lines/Catheters IV Catheter Type (from Nrsg): Mid Line Central line still needed: No Urinary Cath still in place: No Reason Cath still needed: urinary retention Assessment/Plan Assessment/Plan 1. Cancer of the left and left breast. Exact type at this time unknown.MULTIPLE BONY METS, PULMONARY METS 2. Severe pain in the interscapular and lumbar sacral area most probably metastatic lesion possible femoral fracture. pathologic fracture of T9 with 60% of loss of height. Neurosurgical consult planned. 3. Obesity. 4. Weight loss 60 pounds during the last 2 years by diet 5. PMS. 6. Myopia. 7. Anemia chronic disease. 8. Anxiety disorder. 9. Posttraumatic stress disorder. 10. Pain in the left forearm with a history of fracture of ulna and radius. 11. Tachycardia 12. Hypoxemia at night marginal improved after 2 L of nasal cannula oxygen. 13. Process at night. 14. 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 15. Pain syndrome. 16. Hyponatremia 17. Leukopenia Cont Hosp Indication/DC Plan: placement in snf. Subjective 24 Hr Interval Summary Free Text/Dictation worsening of the pain of the spine with difficulty to move. Constitutional: poor po, requiring O2; No no complaints, No improved, No chills, No diaphoresis, No disoriented, No febrile, No requiring IVF, No other Eyes: No no complaints, No pain, No discharge, No redness, No visual change, No other ENT: No no complaints, No bleeding, No pain, No congestion, No discharge, No dysphagia, No sore throat, No other Respiratory: No no complaints, No pain, No cough, No pleuritic pain, No shortness of breath, No sputum, No wheezing, No other Cardiovascular: chest pain, orthopenea, palpitations; No no complaints, No edema, No lightheadedness, No paroxysmal nocturnal dyspnea, No other Gastrointestinal: constipation, flatus; No no complaints, No pain, No blood, No decreased appetite, No diarrhea, No nausea, No passing stool, No vomiting, No other Genitourinary: dysuria; No no complaints, No bleeding, No discharge, No flank pain, No hematuria, No other Musculoskeletal: back pain, bone/joint pain, neck pain; No no complaints, No restricted range of motion, No swelling, No other Skin: pruritis, rash; No no complaints, No bruising, No erythema, No laceration, No skin lesions, No other Exam/Review of Systems Vital Signs Vitals Vital Signs Date Temp Pulse Resp B/P (MAP) Pulse Ox O2 O2 Flow FiO2 Time Delivery Rate 05/28/18 98.2 92 18 109/60 98 15:49 (76) 05/26/18 Room Air 15:31 Intake and Output 05/27/18 05/27/18 05/28/18 1414:59 22:59 06:59 IntakeIntake Total 880 ml 800 ml OutputOutput Total 480 ml BalanceBalance 400 ml 800 ml Exam Constitutional: alert, oriented, well developed, distress, frail; No non-verbal, No obese, No other Psych: anxiety, confusion, depression; No no complaints, No nl mood/affect, No suicidal, No other Head: normocephalic, atraumatic; No lacerations, No hematomas, No other Eyes: nl conjunctiva, EOMI, nl lids, PERRL; No nl sclera, No icteric, No fundi, disc, No other ENMT: nl external ears & nose, nl lips & teeth, tympanic membranes; No nl nasal mucosa & septum, No mucosa pink and moist, No intubated, No other Neck: non-tender, nuchal rigidity; No supple, No jvd, No bruits, No masses, No thyromegaly, No other Respiratory: clear to auscultation, normal air movement; No congested cough, No crackles/rales, No diminished breath sounds, No intercostal retraction, No labored breathing, No respirations, No tactile fremitus, No wheezing, No other Cardiovascular: regular rate and rhythm, bruits, jugular venous distention (JVD); No nl pulses, No diastolic murmur, No edema, No gallop, No irregular rhythm, No murmurs/extra sounds, No rub, No systolic murmur, No S3, No S4, No other Gastrointestinal: soft, nl liver, spleen, non-tender; No ascites, No bowel sounds, No distended, No firm, No hepatomegaly, No mass, No rebound or guarding, No splenomegaly, No surgical scars, No tender, No other Genitourinary - Female: nl adnexae, nl external genitalia; No CMT, No CVA tenderness, No uterus, No other Musculoskeletal: nl gait and stance, joint tenderness, muscle tone Extremities: normal pulses, edema; No calf tenderness, No cyanosis, No clubbing, No pitting pedal edema, No palpable cord, No tenderness, No other 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: 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; No nl mental status, No nl speech, No nl strength, No confused, No DTR's symmetric, No focal weakness, No lethargic, No numbness, No reflexes, No unresponsive, No other Skin: nl turgor; No rash or lesions, No diaphoresis, No ecchymosis, No laceration, No puncture, No other Lymph: nl lymph nodes; No enlarged, No nontender, No other Medications Medications Current Medications Anastrozole (Arimidex) 1 mg DAILY PO Last administered on 05/28/18 09:51; Admin Dose 1 MG; Start 04/25/18 at 19:00 Zolpidem Tartrate (Ambien) 10 mg HS PRN PO INSOMNIA; Start 04/25/18 at 23:30 Lorazepam (Ativan) 0.5 mg TID PRN PO ANXIETY Last administered on 05/28/18 09:48; Admin Dose 0.5 MG; Start 04/25/18 at 23:30 Magnesium Hydroxide (Milk Of Mag) 30 ml DAILY PRN PO CONSTIPATION Last administered on 04/29/18 09:04; Admin Dose 30 ML; Start 04/27/18 at 21:00 Morphine Sulfate (morphine) 3 mg Q4H PRN IV SEVERE PAIN LEVEL 7-10 Last administered on 05/28/18 15:23; Admin Dose 3 MG; Start 04/27/18 at 21:00 Amlodipine Besylate (Norvasc) 5 mg BID PO Last administered on 05/28/18 09:50; Admin Dose 5 MG; Start 04/28/18 at 04:00 Polyethylene Glycol (Miralax) 17 gm BID PO Last administered on 05/28/18 09:50; Admin Dose 17 GM; Start 04/29/18 at 21:00 Docusate Sodium (Colace) 200 mg BID PO Last administered on 05/28/18at 09:48; Admin Dose 200 MG; Start 04/29/18 at 21:00 Benazepril HCl (Lotensin) 5 mg BID PO Last administered on 05/28/18at 09:49; Admin Dose 5 MG; Start 04/29/18 at 21:00 Oxycodone HCl (Oxycontin) 20 mg BID PO Last administered on 05/28/18at 09:48; Admin Dose 20 MG; Start 05/01/18 at 21:00 Enoxaparin Sodium (Lovenox) 40 mg DAILY SC Last administered on 05/27/18at 09:25; Admin Dose 40 MG; Start 05/24/18 at 09:00; Status Hold Ondansetron HCl 8 mg/Dexamethasone 4 mg/Sodium Chloride 55 ml @ 252 mls/hr ONCE ONCE IV ; Start 05/29/18 at 12:00; Stop 05/29/18 at 12:13; Status UNV Diphenhydramine HCl (Benadryl) 25 mg ONCE ONCE IV ; Start 05/29/18 at 12:00; Stop 05/29/18 at 12:01; Status UNV Docetaxel 70 mg/ Sodium Chloride 250 ml @ 250 mls/hr ONCE ONCE IV ; Start 05/29/18 at 12:00; Stop 05/29/18 at 12:59; Status UNV Results Result Diagram: 05/27/18 0440 05/26/18 0437 RUSS JEROME MD May 28, 2018 18:29
--- NOTE | 2018-05-28 19:44 | CONS ---
Date/Time of Note Date/Time of Note DATE: 05/28/18 TIME: 19:43 Assessment/Plan Assessment/Plan Chief Complaint/Hosp Course METASTATIC BREAST Cancer ( PRIMARY IS IN THE L BREAST ) with MULTIPLE BONY METS, PULMONARY METS SEVERE T-L SPINE PAIN WITH DIFFICULTIES TO AMBULATE MRI T-L SPINE- Diffuse osseous metastatic disease of the visualized thoracic spine (T10 - T12), the entire lumbar spine, sacrum, and bilateral iliac bones. Expansion of the posterior T9 vertebral body resulting in central canal stenosis with AP diameter measuring 8 mm. DC ORAL DECADRON CONT AI PAIN CONTROL MRI C - SPINE AND R HIP NOTED BONE SCAN -Multiple skeletal metastases in the axial and appendicular skeleton COMPLETED XRT PLAN CHEMO PORTACATH PLACEMENT R FEMORAL LESION Because of the extensive and widespread metastatic lesion involving both vestibular part and proximal femoral part of the right hip and even if any surgical procedure is considered, she will need a special custom made acetabular part and proximal femoral part, which can be done in a [facility], probably by oncologic orthopedic surgeon. Even if surgery is considered and she needs to be transferred to a [facility] for the higher level of care including evaluation and care by oncology orthopedic surgeon, it is possible that because of the extensiveness of the metastatic le sions further surgical treatment may not be the recommended. PAIN CONT OXYCONTIN POOR IV ACCESS- WILL D/W PT- SHE WILL NEEDS PICC OR PORTACATH Obesity. Weight loss 60 pounds during the last 2 years by diet PMS. Myopia. Anemia chronic disease. Anxiety disorder. Posttraumatic stress disorder. Pain in the left forearm with a history of fracture of ulna and radius. Tachycardia Incomplete data [employer]IAL [employer]UES [employer] Consultation Date/Type/Reason Admit Date/Time Apr 25, 2018 at 14:37 Initial Consult Date 04/25/18 Requesting Provider: RUSS JEROME MD 24 HR Interval Summary Free Text/Dictation all noted d/w RN and pt Exam/Review of Systems Vital Signs Vitals Vital Signs Date Temp Pulse Resp B/P (MAP) Pulse Ox O2 O2 Flow FiO2 Time Delivery Rate 05/28/18 98.2 92 18 109/60 98 15:49 (76) 05/26/18 Room Air 15:31 Intake and Output 05/27/18 05/27/18 05/28/18 1515:00 23:00 07:00 IntakeIntake Total 880 ml 800 ml OutputOutput Total 480 ml BalanceBalance 400 ml 800 ml Exam Constitutional: alert, oriented, well developed, distress, frail; No non-verbal, No other Psych: anxiety, depression; No no complaints, No nl mood/affect, No confusion, No suicidal, No other Head: normocephalic, atraumatic; No lacerations, No hematomas, No other Eyes: EOMI, nl lids, PERRL; No nl conjunctiva, No nl sclera, No icteric, No fundi, disc, No other ENMT: tympanic membranes; No nl external ears & nose, No nl lips & teeth, No nl nasal mucosa & septum, No mucosa pink and moist, No intubated, No other Neck: supple, non-tender, jvd, bruits; No masses, No thyromegaly, No nuchal rigidity, No other Respiratory: clear to auscultation, normal air movement, crackles/rales, diminished breath sounds, respirations; No congested cough, No intercostal retraction, No labored breathing, No tactile fremitus, No wheezing, No other Cardiovascular: regular rate and rhythm, bruits, jugular venous distention (JVD), systolic murmur; No nl pulses, No diastolic murmur, No edema, No gallop, No irregular rhythm, No murmurs/extra sounds, No rub, No S3, No S4, No other Gastrointestinal: soft, non-tender, bowel sounds, distended, hepatomegaly, other (Obesity with thick fatty layer of the anterior abdominal wall with no rebound.); No nl liver, spleen, No ascites, No firm, No mass, No rebound or guarding, No splenomegaly, No surgical scars, No tender Genitourinary - Female: nl adnexae, nl external genitalia, CVA tenderness; No CMT, No uterus, No other Musculoskeletal: joint tenderness, muscle tone, muscle weakness, spine non- tender (Severe tenderness of the intrascapular area lumbosacral area with great difficulty to get up to move. 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: HAND SPLITTER 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; No nl mental status, No nl speech, No nl strength, No confused, No DTR's symmetric, No focal weakness, No lethargic, No numbness, No reflexes, No unresponsive, No other Skin: nl turgor; No rash or lesions, No diaphoresis, No ecchymosis, No laceration, No puncture, No other Lymph: No nl lymph nodes, No enlarged, No nontender, No other BREAST- LARGE L BREAST MASS Medications Medications Current Medications Anastrozole (Arimidex) 1 mg DAILY PO Last administered on 05/28/18 09:51; Admin Dose 1 MG; Start 04/25/18 at 19:00 Zolpidem Tartrate (Ambien) 10 mg HS PRN PO INSOMNIA; Start 04/25/18 at 23:30 Lorazepam (Ativan) 0.5 mg TID PRN PO ANXIETY Last administered on 05/28/18 09:48; Admin Dose 0.5 MG; Start 04/25/18 at 23:30 Magnesium Hydroxide (Milk Of Mag) 30 ml DAILY PRN PO CONSTIPATION Last administ ered on 04/29/18 09:04; Admin Dose 30 ML; Start 04/27/18 at 21:00 Morphine Sulfate (morphine) 3 mg Q4H PRN IV SEVERE PAIN LEVEL 7-10 Last administered on 05/28/18 19:09; Admin Dose 3 MG; Start 04/27/18 at 21:00 Amlodipine Besylate (Norvasc) 5 mg BID PO Last administered on 05/28/18 09:50; Admin Dose 5 MG; Start 04/28/18 at 04:00 Polyethylene Glycol (Miralax) 17 gm BID PO Last administered on 05/28/18 09:50; Admin Dose 17 GM; Start 04/29/18 at 21:00 Docusate Sodium (Colace) 200 mg BID PO Last administered on 05/28/18 09:48; Admin Dose 200 MG; Start 04/29/18 at 21:00 Benazepril HCl (Lotensin) 5 mg BID PO Last administered on 05/28/18 09:49; Admin Dose 5 MG; Start 04/29/18 at 21:00 Oxycodone HCl (Oxycontin) 20 mg BID PO Last administered on 05/28/18at 09:48; Admin Dose 20 MG; Start 05/01/18 at 21:00 Enoxaparin Sodium (Lovenox) 40 mg DAILY SC Last administered on 05/27/18at 09:25; Admin Dose 40 MG; Start 05/24/18 at 09:00; Status Hold Ondansetron HCl 8 mg/Dexamethasone 4 mg/Sodium Chloride 55 ml @ 252 mls/hr ONCE ONCE IV ; Start 05/29/18 at 12:00; Stop 05/29/18 at 12:13; Status UNV Diphenhydramine HCl (Benadryl) 25 mg ONCE ONCE IV ; Start 05/29/18 at 12:00; Stop 05/29/18 at 12:01; Status UNV Docetaxel 70 mg/ Sodium Chloride 250 ml @ 250 mls/hr ONCE ONCE IV ; Start 05/29/18 at 12:00; Stop 05/29/18 at 12:59; Status UNV Results Result Diagram: 05/27/18 0440 05/26/18 0437 DES DUNAWAY MD May 28, 2018 19:44
[2018-05-28 20:14] VITALS: BP 120/78; PULSE 98; RESP 18
[2018-05-28 23:27] VITALS: BP 134/84; PULSE 72; RESP 18
[2018-05-29] VITALS (25 sets, daily range): BP systolic 92–125; BP diastolic 55–75; PULSE 90–102; RESP 12–20
[2018-05-29] MEDS: morphine 4 MG/ML VIAL IV PRN ×4 (02:48→18:32)
[2018-05-29] MEDS: POLYETHYLENE GLYCOL 17 GM PACKET PO SCH ×2 (09:00→20:51)
[2018-05-29] MEDS: BENAZEPRIL 5 MG TAB PO SCH ×2 (09:00→20:52)
[2018-05-29] MEDS: AMLODIPINE 5 MG TAB PO SCH ×2 (09:00→20:53)
--- NOTE | 2018-05-29 10:30 | PREAC ---
Date/Time of Note Date/Time of Note DATE: 05/29/18 TIME: 10:28 Anesthesia Eval and Record Evaluation Time Pre-Procedure Interview DATE: 05/29/18 TIME: 10:28 Age 58 Sex female NPO: 8 hrs Preoperative diagnosis Metastatic breast CA Planned procedure Portacath placement Past Medical History Past Medical History: Includes Musculoskeletal: Osteoarthritis GI: Morbid obesity Surgery & Anesthesia Issues No known issue Meds Anticoagulation: No Beta Alana within 24 hr: No Reason Beta Alana not given: Pt. not on B-Alana Current Medications Anastrozole (Arimidex) 1 mg DAILY PO Last administered on 05/28/18 09:51; Admin Dose 1 MG; Start 04/25/18 at 19:00 Zolpidem Tartrate (Ambien) 10 mg HS PRN PO INSOMNIA; Start 04/25/18 at 23:30 Lorazepam (Ativan) 0.5 mg TID PRN PO ANXIETY Last administered on 05/28/18 21:41; Admin Dose 0.5 MG; Start 04/25/18 at 23:30 Magnesium Hydroxide (Milk Of Mag) 30 ml DAILY PRN PO CONSTIPATION Last administered on 04/29/18 09:04; Admin Dose 30 ML; Start 04/27/18 at 21:00 Morphine Sulfate (morphine) 3 mg Q4H PRN IV SEVERE PAIN LEVEL 7-10 Last administered on 05/29/18 06:47; Admin Dose 3 MG; Start 04/27/18 at 21:00 Amlodipine Besylate (Norvasc) 5 mg BID PO Last administered on 05/28/18 21:41; Admin Dose 5 MG; Start 04/28/18 at 04:00 Polyethylene Glycol (Miralax) 17 gm BID PO Last administered on 05/28/18 09:50; Admin Dose 17 GM; Start 04/29/18 at 21:00 Docusate Sodium (Colace) 200 mg BID PO Last administered on 05/28/18 21:41; Admin Dose 200 MG; Start 04/29/18 at 21:00 Benazepril HCl (Lotensin) 5 mg BID PO Last administered on 05/28/18 21:41; Admin Dose 5 MG; Start 04/29/18 at 21:00 Oxycodone HCl (Oxycontin) 20 mg BID PO Last administered on 05/28/18 21:41; Admin Dose 20 MG; Start 05/01/18 at 21:00 Enoxaparin Sodium (Lovenox) 40 mg DAILY SC Last administered on 05/27/18at 09:25; Admin Dose 40 MG; Start 05/24/18 at 09:00; Status Hold Ondansetron HCl 8 mg/Dexamethasone 4 mg/Sodium Chloride 55 ml @ 252 mls/hr ONCE ONCE IV ; Start 05/29/18 at 12:00; Stop 05/29/18 at 12:13; Status UNV Diphenhydramine HCl (Benadryl) 25 mg ONCE ONCE IV ; Start 05/29/18 at 12:00; Stop 05/29/18 at 12:01; Status UNV Docetaxel 70 mg/ Sodium Chloride 250 ml @ 250 mls/hr ONCE ONCE IV ; Start 05/29/18 at 12:00; Stop 05/29/18 at 12:59; Status UNV Meds reviewed: Yes Allergies Coded Allergies: No Known Allergy (Unverified , 04/25/18) Allergies Reviewed: Yes Labs/Studies Labs Reviewed: Reviewed by anesthesiologist Result Diagram: 05/27/18 0440 05/26/18 0437 test: N/A Studies: ECG Pre-procedure Exam Last vitals Vital Signs Date Temp Pulse Resp B/P (MAP) Pulse Ox O2 O2 Flow FiO2 Time Delivery Rate 05/29/18 98.8 97 18 117/62 92 07:37 (80) 05/28/18 Room Air 23:27 Airway: Adequate mouth opening, Adequate thyromental dist Mallampati: Mallampati II Teeth: Normal Lung: Normal Heart: Normal ASA Physical Status ASA physical status: 3 Emergency: None Planned Anesthetic General/MAC: LMA Planned Pain Management Parenteral pain med Pre-operative Attestations Prior to commencing anesthesia and surgery, the patient was re-evaluated, there was verification of: *The patient's identity *The results of appropriate recent lab work and preoperative vital signs *The above evaluation not changing prior to induction *Anesthetic plan, risk benefits, alternative and complications discussed with patient/family; questions answered; patient/family understands, accepts and wishes to proceed. SAMIRA OLEARY MD May 29, 2018 10:30
[2018-05-29] MEDS ORDERED: MIDAZOLAM 1 MG/ML 2 ML INJ ONE (11:03)
[2018-05-29] MEDS ORDERED: FENTAnyl 50 MCG/ML VIAL ONE ×3 (11:04→12:30)
[2018-05-29] MEDS ORDERED: LIDOCAINE 1% (STERILE-PAK) 30 ML INJ ONE (11:04)
[2018-05-29] MEDS ORDERED: KETAMINE (50 MG/ML) 10 ML VIAL ONE (11:11)
[2018-05-29] MEDS ORDERED: LIDOCAINE 1% (MPF) 30 ML INJ INJ ONE ×2 (11:26→11:40)
[2018-05-29] MEDS ORDERED: HEPARIN 1000 UNITS/ML 10 ML INJ ONE (11:59)
[2018-05-29] MEDS ORDERED: HEPARIN 1000 UNITS/ML 10 ML INJ IRR ONE ×2 (12:01→12:11)
[2018-05-29] MEDS ORDERED: CEFAZOLIN 1 GM INJ ONE (12:48)
--- NOTE | 2018-05-29 12:57 | PAC ---
Date/Time of Note Date/Time of Note DATE: 05/29/18 TIME: 12:56 Post-Anesthesia Notes Post-Anesthesia Note Last documented vital signs Vital Signs Date Temp Pulse Resp B/P (MAP) Pulse Ox O2 O2 Flow FiO2 Time Delivery Rate 05/29/18 98.8 97 18 117/62 92 07:37 (80) 05/28/18 Room Air 23:27 Activity: WNL Respiratory function: WNL Cardiovascular function: WNL Mental status: Baseline Pain reasonably controlled: Yes Hydration appropriate: Yes Nausea/Vomiting absent: Yes Comments BP:128/68,pulse:88, spo2:100%, T:98,8 SAMIRA OLEARY MD May 29, 2018 12:57
[2018-05-29] MEDS ORDERED: DIPHENHYDRAMINE 50 MG INJ IV PRN (13:00)
[2018-05-29] MEDS ORDERED: HYDROmorphONE 1 MG/5 ML IV SYRINGE IV PRN ×2 (13:00)
[2018-05-29] MEDS ORDERED: MEPERIDINE 25 MG INJ IV PRN (13:00)
[2018-05-29] MEDS ORDERED: METOCLOPRAMIDE 10 MG INJ IV PRN (13:00)
[2018-05-29] MEDS ORDERED: ONDANSETRON 4 MG INJ IV PRN (13:00)
[2018-05-29] MEDS ORDERED: FENTAnyl 50 MCG/ML VIAL IV PRN (13:00)
[2018-05-29] MEDS ORDERED: LABETALOL HCL 20MG INJ IV PRN (13:00)
[2018-05-29] MEDS ORDERED: ONDANSETRON IV ONE (13:30)
[2018-05-29] MEDS ORDERED: SOD CHLORIDE 0.9% IV ONE ×2 (13:30→14:00)
[2018-05-29] MEDS ORDERED: DIPHENHYDRAMINE 25 MG CAP PO ONE (13:30)
[2018-05-29] MEDS ORDERED: DEXAMETHASONE IV ONE (13:30)
[2018-05-29] MEDS ORDERED: DOCETAXEL IV ONE (14:00)
[2018-05-29] MEDS: DOCUSATE SODIUM 100 MG CAP PO SCH ×2 (15:21→20:51)
[2018-05-29] MEDS: oxyCODONE (CR) 20 MG TAB [oxyCONTIN] PO SCH ×2 (15:21→20:52)
[2018-05-29] MEDS: ANASTROZOLE 1 MG TAB PO SCH (15:22)
--- NOTE | 2018-05-29 19:45 | PN ---
Date/Time of Note Date/Time of Note DATE: 05/29/18 TIME: 19:39 Assessment/Plan VTE Prophylaxis Risk score (from Nsg)>0 risk: 1 SCD applied (from Nsg): Yes SCD contraindicated: low risk/ambulating Pharmacological prophylaxis: LMWH Lines/Catheters IV Catheter Type (from Nrsg): Mid Line Central line still needed: No Urinary Cath still in place: No Reason Cath still needed: urinary retention Assessment/Plan Assessment/Plan 1. Cancer of the left and left breast. Exact type at this time unknown.MULTIPLE BONY METS, PULMONARY METS 2. Severe pain in the interscapular and lumbar sacral area most probably metastatic lesion possible femoral fracture. pathologic fracture of T9 with 60% of loss of height. Neurosurgical consult planned. 3. Obesity. 4. Weight loss 60 pounds during the last 2 years by diet 5. PMS. 6. Myopia. 7. Anemia chronic disease. 8. Anxiety disorder. 9. Posttraumatic stress disorder. 10. Pain in the left forearm with a history of fracture of ulna and radius. 11. Tachycardia 12. Hypoxemia at night marginal improved after 2 L of nasal cannula oxygen. 13. Process at night. 14. 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 15. Pain syndrome. 16. Hyponatremia 17. Leukopenia Cont Hosp Indication/DC Plan: placement in snf. Subjective 24 Hr Interval Summary Free Text/Dictation Status post catheter insertion. Doing well. Persistent pain interscapular and lower back and bilateral hip areas at the pelvic level mainly. Weakness no new focal episodes. Constitutional: poor po; No no complaints, No improved, No chills, No diaphoresis, No disoriented, No febrile, No requiring IVF, No requiring O2, No other Eyes: No no complaints, No pain, No discharge, No redness, No visual change, No other ENT: congestion; No no complaints, No bleeding, No pain, No discharge, No dysphagia, No sore throat, No other Respiratory: cough, shortness of breath; No no complaints, No pain, No pleuritic pain, No sputum, No wheezing, No other Cardiovascular: chest pain, lightheadedness, orthopenea; No no complaints, No edema, No palpitations, No paroxysmal nocturnal dyspnea, No other Gastrointestinal: constipation, flatus, nausea, passing stool; No no complaints, No pain, No blood, No decreased appetite, No diarrhea, No vomiting, No other Genitourinary: dysuria, flank pain; No no complaints, No bleeding, No discharge, No hematuria, No other Musculoskeletal: back pain, bone/joint pain, neck pain; No no complaints, No restricted range of motion, No swelling, No other Exam/Review of Systems Vital Signs Vitals Vital Signs Date Temp Pulse Resp B/P (MAP) Pulse Ox O2 O2 Flow FiO2 Time Delivery Rate 05/29/18 98.6 99 16 94/56 (69) 96 Nasal 18:30 Cannula 05/29/18 2.0 13:51 Intake and Output 05/28/18 05/28/18 05/29/18 1414:59 22:59 06:59 IntakeIntake Total 220 ml 250 ml 250 ml OutputOutput Total 200 ml 300 ml BalanceBalance 220 ml 50 ml -50 ml Exam Constitutional: alert, oriented, well developed, distress, frail Psych: nl mood/affect, anxiety, confusion Head: normocephalic, atraumatic; No lacerations, No hematomas, No other Eyes: nl conjunctiva, EOMI, nl lids, PERRL; No nl sclera, No icteric, No fundi, disc, No other ENMT: nl external ears & nose, nl lips & teeth, nl nasal mucosa & septum, tympanic membranes, other (Status post right internal jugular vein catheter replacement with insertion point in the right chest covered by dressing.); No mucosa pink and moist, No intubated Neck: non-tender, bruits; No supple, No jvd, No masses, No thyromegaly, No nuchal rigidity, No other Respiratory: clear to auscultation, normal air movement, congested cough, crackles/rales, diminished breath sounds; No intercostal retraction, No labored breathing, No respirations, No tactile fremitus, No wheezing, No other Cardiovascular: regular rate and rhythm, bruits, jugular venous distention (JVD), systolic murmur Gastrointestinal: soft, nl liver, spleen, bowel sounds Musculoskeletal: nl gait and stance, joint tenderness, muscle tone, muscle weakness; No nl extremities to inspection, No range of motion, No spine non-tender, No swelling, No other Extremities: normal pulses; No calf tenderness, No cyanosis, No clubbing, No edema, No pitting pedal edema, No palpable cord, No tenderness, No other 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: PROCESSING SPECIALIST 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, nl mental status, confused, focal weakness, numbness; No nl speech, No nl strength, No DTR's symmetric, No lethargic, No reflexes, No unresponsive, No other Skin: nl turgor; No rash or lesions, No diaphoresis, No ecchymosis, No laceration, No puncture, No other Lymph: No nl lymph nodes, No enlarged, No nontender, No other Medications Medications Current Medications Anastrozole (Arimidex) 1 mg DAILY PO Last administered on 05/29/18 15:22; Admin Dose 1 MG; Start 04/25/18 at 19:00 Zolpidem Tartrate (Ambien) 10 mg HS PRN PO INSOMNIA; Start 04/25/18 at 23:30 Lorazepam (Ativan) 0.5 mg TID PRN PO ANXIETY Last administered on 05/28/18 21:41; Admin Dose 0.5 MG; Start 04/25/18 at 23:30 Magnesium Hydroxide (Milk Of Mag) 30 ml DAILY PRN PO CONSTIPATION Last administered on 04/29/18 09:04; Admin Dose 30 ML; Start 04/27/18 at 21:00 Morphine Sulfate (morphine) 3 mg Q4H PRN IV SEVERE PAIN LEVEL 7-10 Last administered on 05/29/18 18:32; Admin Dose 3 MG; Start 04/27/18 at 21:00 Amlodipine Besylate (Norvasc) 5 mg BID PO Last administered on 05/28/18 21:41; Admin Dose 5 MG; Start 04/28/18 at 04:00 Polyethylene Glycol (Miralax) 17 gm BID PO Last administered on 05/28/18 09:50; Admin Dose 17 GM; Start 04/29/18 at 21:00 Docusate Sodium (Colace) 200 mg BID PO Last administered on 05/29/18 15:21; Admin Dose 200 MG; Start 04/29/18 at 21:00 Benazepril HCl (Lotensin) 5 mg BID PO Last administered on 05/28/18 21:41; Admin Dose 5 MG; Start 04/29/18 at 21:00 Oxycodone HCl (Oxycontin) 20 mg BID PO Last administered on 05/29/18 15:21; Admin Dose 20 MG; Start 05/01/18 at 21:00 Enoxaparin Sodium (Lovenox) 40 mg DAILY SC Last administered on 05/27/18at 09:25; Admin Dose 40 MG; Start 05/24/18 at 09:00; Status Hold Results Result Diagram: 05/29/18 1325 05/29/18 1325 Results 24 hrs Laboratory Tests Test 05/29/18 13:25 White Blood Count 1.5 L Red Blood Count 3.32 L Hemoglobin 10.6 L Hematocrit 32.1 L Mean Corpuscular Volume 96.7 Mean Corpuscular Hemoglobin 31.9 Mean Corpuscular Hemoglobin Concent 33.0 Red Cell Distribution Width 15.7 H Platelet Count 114 L Mean Platelet Volume 9.1 Immature Granulocytes % 1.400 H Neutrophils % Segmented Neutrophils % (Manual) 45 Band Neutrophils % (Manual) 26 H Lymphocytes % Lymphocytes % (Manual) 15 Reactive Lymphocytes % (Manual) 6 H Monocytes % Monocytes % (Manual) 5 Eosinophils % Eosinophils % (Manual) 3 Basophils % Nucleated Red Blood Cells % 0.0 Immature Granulocytes # 0.020 Neutrophils # Neutrophils # (Manual) 0.7 L Band Neutrophils # 0.3 Lymphocytes (Manual) 0.2 L Lymphocytes # Reactive Lymphocytes # 0.0 Monocytes # Monocytes # (Manual) 0.0 L Eosinophils # Basophils # Nucleated Red Blood Cells # Platelet Estimate DECREASED Giant Platelets 1 H Polychromasia 3+ Anisocytosis 1+ Microcytosis 1+ Sodium Level 135 Potassium Level 4.0 Chloride Level 104 Carbon Dioxide Level 27 Anion Gap 4 L Blood Urea Nitrogen 11 Creatinine 0.38 L Est Glomerular Filtrat Rate mL/min > 60 Glucose Level 101 Calcium Level 7.8 L Total Bilirubin 0.4 Direct Bilirubin 0.00 Indirect Bilirubin 0.4 Aspartate Amino Transf (AST/SGOT) 29 Alanine Aminotransferase (ALT/SGPT) 32 Alkaline Phosphatase 362 H Total Protein 5.3 L Albumin 2.7 L Globulin 2.60 Albumin/Globulin Ratio 1.03 RUSS JEROME MD May 29, 2018 19:45
--- NOTE | 2018-05-29 20:41 | CONS ---
Date/Time of Note Date/Time of Note DATE: 05/29/18 TIME: 20:38 Assessment/Plan Assessment/Plan Chief Complaint/Hosp Course METASTATIC BREAST Cancer ( PRIMARY IS IN THE L BREAST ) with MULTIPLE BONY METS, PULMONARY METS SEVERE T-L SPINE PAIN WITH DIFFICULTIES TO AMBULATE MRI T-L SPINE- Diffuse osseous metastatic disease of the visualized thoracic spine (T10 - T12), the entire lumbar spine, sacrum, and bilateral iliac bones. Expansion of the posterior T9 vertebral body resulting in central canal stenosis with AP diameter measuring 8 mm. DC ORAL DECADRON CONT AI PAIN CONTROL MRI C - SPINE AND R HIP NOTED BONE SCAN -Multiple skeletal metastases in the axial and appendicular skeleton COMPLETED XRT PLAN CHEMO PORTACATH PLACEMENT R FEMORAL LESION Because of the extensive and widespread metastatic lesion involving both vestibular part and proximal femoral part of the right hip and even if any surgical procedure is considered, she will need a special custom made acetabular part and proximal femoral part, which can be done in a [facility], probably by oncologic orthopedic surgeon. Even if surgery is considered and she needs to be transferred to a [facility] for the higher level of care including evaluation and care by oncology orthopedic surgeon, it is possible that because of the extensiveness of the metastatic le sions further surgical treatment may not be the recommended. PAIN CONT OXYCONTIN POOR IV ACCESS - post PORTACATH Obesity. Weight loss 60 pounds during the last 2 years by diet PMS. Myopia. Anemia chronic disease. Anxiety disorder. Posttraumatic stress disorder. Pain in the left forearm with a history of fracture of ulna and radius. 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 Doing well. Exam/Review of Systems Vital Signs Vitals Vital Signs Date Temp Pulse Resp B/P (MAP) Pulse Ox O2 O2 Flow FiO2 Time Delivery Rate 05/29/18 98.6 99 16 94/56 (69) 96 Nasal 18:30 Cannula 05/29/18 2.0 13:51 Intake and Output 05/28/18 05/28/18 05/29/18 1515:00 23:00 07:00 IntakeIntake Total 220 ml 250 ml 250 ml OutputOutput Total 200 ml 300 ml BalanceBalance 220 ml 50 ml -50 ml Exam Constitutional: alert, oriented, well developed, distress, frail; No non-verbal, No other Psych: anxiety, depression; No no complaints, No nl mood/affect, No confusion, No suicidal, No other Head: normocephalic, atraumatic; No lacerations, No hematomas, No other Eyes: EOMI, nl lids, PERRL; No nl conjunctiva, No nl sclera, No icteric, No fundi, disc, No other ENMT: tympanic membranes; No nl external ears & nose, No nl lips & teeth, No nl nasal mucosa & septum, No mucosa pink and moist, No intubated, No other Neck: supple, non-tender, jvd, bruits; No masses, No thyromegaly, No nuchal rigidity, No other Respiratory: clear to auscultation, normal air movement, crackles/rales, diminished breath sounds, respirations; No congested cough, No intercostal retraction, No labored breathing, No tactile fremitus, No wheezing, No other Cardiovascular: regular rate and rhythm, bruits, jugular venous distention (JVD), systolic murmur; No nl pulses, No diastolic murmur, No edema, No gallop, No irregular rhythm, No murmurs/extra sounds, No rub, No S3, No S4, No other Gastrointestinal: soft, non-tender, bowel sounds, distended, hepatomegaly, other (Obesity with thick fatty layer of the anterior abdominal wall with no rebound.); No nl liver, spleen, No ascites, No firm, No mass, No rebound or guarding, No splenomegaly, No surgical scars, No tender Genitourinary - Female: nl adnexae, nl external genitalia, CVA tenderness; No CMT, No uterus, No other Musculoskeletal: joint tenderness, muscle tone, muscle weakness, spine non- tender (Severe tenderness of the intrascapular area lumbosacral area with great difficulty to get up to move. 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; No nl mental status, No nl speech, No nl strength, No confused, No DTR's symm etric, No focal weakness, No lethargic, No numbness, No reflexes, No unresponsive, No other Skin: nl turgor; No rash or lesions, No diaphoresis, No ecchymosis, No laceration, No puncture, No other Lymph: No nl lymph nodes, No enlarged, No nontender, No other BREAST- LARGE L BREAST MASS Medications Medications Current Medications Anastrozole (Arimidex) 1 mg DAILY PO Last administered on 05/29/18 15:22; Admin Dose 1 MG; Start 04/25/18 at 19:00 Zolpidem Tartrate (Ambien) 10 mg HS PRN PO INSOMNIA; Start 04/25/18 at 23:30 Lorazepam (Ativan) 0.5 mg TID PRN PO ANXIETY Last administered on 05/28/18 21:41; Admin Dose 0.5 MG; Start 04/25/18 at 23:30 Magnesium Hydroxide (Milk Of Mag) 30 ml DAILY PRN PO CONSTIPATION Last administered on 04/29/18 09:04; Admin Dose 30 ML; Start 04/27/18 at 21:00 Morphine Sulfate (morphine) 3 mg Q4H PRN IV SEVERE PAIN LEVEL 7-10 Last administered on 05/29/18at 18:32; Admin Dose 3 MG; Start 04/27/18 at 21:00 Amlodipine Besylate (Norvasc) 5 mg BID PO Last administered on 05/28/18at 21:41; Admin Dose 5 MG; Start 04/28/18 at 04:00 Polyethylene Glycol (Miralax) 17 gm BID PO Last administered on 05/28/18 09:50; Admin Dose 17 GM; Start 04/29/18 at 21:00 Docusate Sodium (Colace) 200 mg BID PO Last administered on 05/29/18 15:21; Admin Dose 200 MG; Start 04/29/18 at 21:00 Benazepril HCl (Lotensin) 5 mg BID PO Last administered on 05/28/18 21:41; Admin Dose 5 MG; Start 04/29/18 at 21:00 Oxycodone HCl (Oxycontin) 20 mg BID PO Last administered on 05/29/18at 15:21; Admin Dose 20 MG; Start 05/01/18 at 21:00 Enoxaparin Sodium (Lovenox) 40 mg DAILY SC Last administered on 05/27/18at 09:25; Admin Dose 40 MG; Start 05/24/18 at 09:00; Status Hold Results Result Diagram: 05/29/18 1325 05/29/18 1325 Results 24 hrs Laboratory Tests Test 05/29/18 13:25 White Blood Count 1.5 L Red Blood Count 3.32 L Hemoglobin 10.6 L Hematocrit 32.1 L Mean Corpuscular Volume 96.7 Mean Corpuscular Hemoglobin 31.9 Mean Corpuscular Hemoglobin Concent 33.0 Red Cell Distribution Width 15.7 H Platelet Count 114 L Mean Platelet Volume 9.1 Immature Granulocytes % 1.400 H Neutrophils % Segmented Neutrophils % (Manual) 45 Band Neutrophils % (Manual) 26 H Lymphocytes % Lymphocytes % (Manual) 15 Reactive Lymphocytes % (Manual) 6 H Monocytes % Monocytes % (Manual) 5 Eosinophils % Eosinophils % (Manual) 3 Basophils % Nucleated Red Blood Cells % 0.0 Immature Granulocytes # 0.020 Neutrophils # Neutrophils # (Manual) 0.7 L Band Neutrophils # 0.3 Lymphocytes (Manual) 0.2 L Lymphocytes # Reactive Lymphocytes # 0.0 Monocytes # Monocytes # (Manual) 0.0 L Eosinophils # Basophils # Nucleated Red Blood Cells # Platelet Estimate DECREASED Giant Platelets 1 H Polychromasia 3+ Anisocytosis 1+ Microcytosis 1+ Sodium Level 135 Potassium Level 4.0 Chloride Level 104 Carbon Dioxide Level 27 Anion Gap 4 L Blood Urea Nitrogen 11 Creatinine 0.38 L Est Glomerular Filtrat Rate mL/min > 60 Glucose Level 101 Calcium Level 7.8 L Total Bilirubin 0.4 Direct Bilirubin 0.00 Indirect Bilirubin 0.4 Aspartate Amino Transf (AST/SGOT) 29 Alanine Aminotransferase (ALT/SGPT) 32 Alkaline Phosphatase 362 H Total Protein 5.3 L Albumin 2.7 L Globulin 2.60 Albumin/Globulin Ratio 1.03 DES DUNAWAY MD May 29, 2018 20:41
[2018-05-30] MEDS: LORAZEPAM 0.5 MG TAB PO PRN ×2 (01:01→09:28)
[2018-05-30 01:19] VITALS: BP 135/79; PULSE 85; RESP 20
[2018-05-30] MEDS: morphine 4 MG/ML VIAL IV PRN ×3 (05:59→19:48)
[2018-05-30 07:36] VITALS: BP 105/57; PULSE 94; RESP 18
[2018-05-30] MEDS: oxyCODONE (CR) 20 MG TAB [oxyCONTIN] PO SCH ×2 (09:22→20:51)
[2018-05-30] MEDS: DOCUSATE SODIUM 100 MG CAP PO SCH ×2 (09:22→20:51)
[2018-05-30] MEDS: BENAZEPRIL 5 MG TAB PO SCH ×2 (09:24→20:51)
[2018-05-30] MEDS: ANASTROZOLE 1 MG TAB PO SCH (09:24)
[2018-05-30] MEDS: POLYETHYLENE GLYCOL 17 GM PACKET PO SCH ×2 (09:25→21:00)
[2018-05-30] MEDS: AMLODIPINE 5 MG TAB PO SCH ×2 (09:25→20:52)
[2018-05-30 14:48] VITALS: BP 103/57; PULSE 114; RESP 18
[2018-05-30 19:15] VITALS: BP 111/61; PULSE 118; RESP 20
--- NOTE | 2018-05-30 20:13 | PN ---
Date/Time of Note Date/Time of Note DATE: 05/30/18 TIME: 20:10 Assessment/Plan VTE Prophylaxis Risk score (from Nsg)>0 risk: 4 SCD applied (from Nsg): Yes SCD contraindicated: low risk/ambulating Pharmacological prophylaxis: LMWH Lines/Catheters IV Catheter Type (from Nrsg): PORT-A-CATH Central line still needed: No Urinary Cath still in place: No Reason Cath still needed: urinary retention Assessment/Plan Assessment/Plan 1. Cancer of the left and left breast. Exact type at this time unknown.MULTIPLE BONY METS, PULMONARY METS 2. Severe pain in the interscapular and lumbar sacral area most probably metastatic lesion possible femoral fracture. pathologic fracture of T9 with 60% of loss of height. Neurosurgical consult planned. 3. Obesity. 4. Weight loss 60 pounds during the last 2 years by diet 5. PMS. 6. Myopia. 7. Anemia chronic disease. 8. Anxiety disorder. 9. Posttraumatic stress disorder. 10. Pain in the left forearm with a history of fracture of ulna and radius. 11. Tachycardia 12. Hypoxemia at night marginal improved after 2 L of nasal cannula oxygen. 13. Process at night. 14. 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 15. Pain syndrome. 16. Hyponatremia 17. Leukopenia Cont Hosp Indication/DC Plan: placement in snf. Cont Hosp Indication/DC Plan: Fever chills. Waiting for SNIF placement thank you. Subjective 24 Hr Interval Summary Free Text/Dictation Feeling chills on and off. Now getting a cooling measures. Since workup was initiated. My shortness of breath. Cough. No burning urination. No rashes. Constitutional: diaphoresis, febrile, poor po, requiring O2; No no complaints, No improved, No chills, No disoriented, No requiring IVF, No other Eyes: redness; No no complaints, No pain, No discharge, No visual change, No other ENT: congestion; No no complaints, No bleeding, No pain, No discharge, No dysphagia, No sore throat, No other Respiratory: shortness of breath; No no complaints, No pain, No cough, No pleuritic pain, No sputum, No wheezing, No other Cardiovascular: No no complaints, No chest pain, No edema, No lightheadedness, No orthopenea, No palpitations, No paroxysmal nocturnal dyspnea, No other Gastrointestinal: passing stool; No no complaints, No pain, No blood, No constipation, No decreased appetite, No diarrhea, No flatus, No nausea, No vomiting, No other Genitourinary: No no complaints, No bleeding, No dysuria, No discharge, No flank pain, No hematuria, No other Musculoskeletal: back pain, bone/joint pain, neck pain; No no complaints, No restricted range of motion, No swelling, No other Skin: No no complaints, No bruising, No erythema, No laceration, No pruritis, No rash, No skin lesions, No other Neurologic: No no complaints, No confusion, No dizziness, No focal-weakness, No headache, No syncope, No seizure, No other Exam/Review of Systems Vital Signs Vitals Vital Signs Date Temp Pulse Resp B/P (MAP) Pulse Ox O2 O2 Flow FiO2 Time Delivery Rate 05/30/18 99.0 114 18 103/57 91 14:48 (72) 05/30/18 Room Air 07:36 05/29/18 2.0 13:51 Intake and Output 05/29/18 05/29/18 05/30/18 1515:00 23:00 07:00 IntakeIntake Total 760 ml 505 ml OutputOutput Total 510 ml BalanceBalance 250 ml 505 ml Exam Constitutional: alert, oriented, well developed, distress, frail, obese; No non-verbal, No other Psych: anxiety; No no complaints, No nl mood/affect, No confusion, No depression, No suicidal, No other Head: normocephalic, atraumatic; No lacerations, No hematomas, No other Eyes: EOMI, nl lids; No nl conjunctiva, No nl sclera, No PERRL, No icteric, No fundi, disc, No other ENMT: nl nasal mucosa & septum; No nl external ears & nose, No nl lips & teeth, No mucosa pink and moist, No intubated, No tympanic membranes, No other Neck: supple, thyromegaly, nuchal rigidity; No non-tender, No jvd, No bruits, No masses, No other Respiratory: clear to auscultation, diminished breath sounds; No normal air movement, No congested cough, No crackles/rales, No intercostal retraction, No labored breathing, No respirations, No tactile fremitus, No wheezing, No other Cardiovascular: regular rate and rhythm, systolic murmur; No nl pulses, No bruits, No diastolic murmur, No edema, No gallop, No irregular rhythm, No jugular venous distention (JVD), No murmurs/extra sounds, No rub, No S3, No S4, No other Gastrointestinal: soft, bowel sounds; No nl liver, spleen, No non-tender, No ascites, No distended, No firm, No hepatomegaly, No mass, No rebound or guarding, No splenomegaly, No surgical scars, No tender, No other Musculoskeletal: joint tenderness, muscle tone; No nl extremities to inspection, No nl gait and stance, No muscle weakness, No range of motion, No spine non-tender, No swelling, No other 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: 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, nl mental status, nl speech, nl strength (Decreased.); No confused, No DTR's symmetric, No focal weakness, No lethargic, No numbness, No reflexes, No unresponsive, No other Skin: nl turgor; No rash or lesions, No diaphoresis, No ecchymosis, No laceration, No puncture, No other Medications Medications Current Medications Anastrozole (Arimidex) 1 mg DAILY PO Last administered on 05/30/18 09:24; Admin Dose 1 MG; Start 04/25/18 at 19:00 Zolpidem Tartrate (Ambien) 10 mg HS PRN PO INSOMNIA; Start 04/25/18 at 23:30 Lorazepam (Ativan) 0.5 mg TID PRN PO ANXIETY Last administered on 05/30/18 09:28; Admin Dose 0.5 MG; Start 04/25/18 at 23:30 Magnesium Hydroxide (Milk Of Mag) 30 ml DAILY PRN PO CONSTIPATION Last administered on 04/29/18 09:04; Admin Dose 30 ML; Start 04/27/18 at 21:00 Morphine Sulfate (morphine) 3 mg Q4H PRN IV SEVERE PAIN LEVEL 7-10 Last administered on 05/30/18 19:48; Admin Dose 3 MG; Start 04/27/18 at 21:00 Amlodipine Besylate (Norvasc) 5 mg BID PO Last administered on 05/30/18 09:25; Admin Dose 5 MG; Start 04/28/18 at 04:00 Polyethylene Glycol (Miralax) 17 gm BID PO Last administered on 05/30/18 09:25; Admin Dose 17 GM; Start 04/29/18 at 21:00 Docusate Sodium (Colace) 200 mg BID PO Last administered on 05/30/18 09:22; Admin Dose 200 MG; Start 04/29/18 at 21:00 Benazepril HCl (Lotensin) 5 mg BID PO Last administered on 05/30/18 09:24; Admin Dose 5 MG; Start 04/29/18 at 21:00 Oxycodone HCl (Oxycontin) 20 mg BID PO Last administered on 05/30/18 09:22; Admin Dose 20 MG; Start 05/01/18 at 21:00 Enoxaparin Sodium (Lovenox) 40 mg DAILY SC Last administered on 05/27/18 09:25; Admin Dose 40 MG; Start 05/24/18 at 09:00; Status Hold Results Result Diagram: 05/29/18 1325 05/29/18 1325 RUSS JEROME MD May 30, 2018 20:13
--- NOTE | 2018-05-30 20:16 | PDOCDIS ---
Discharge Instructions DIAGNOSIS Discharge Diagnosis 1. Cancer of the left and left breast. Exact type at this time unknown.MULTIPLE BONY METS, PULMONARY METS 2. Severe pain in the interscapular and lumbar sacral area most probably metastatic lesion possible femoral fracture. pathologic fracture of T9 with 60% of loss of height. Neurosurgical consult planned. 3. Obesity. 4. Weight loss 60 pounds during the last 2 years by diet 5. PMS. 6. Myopia. 7. Anemia chronic disease. 8. Anxiety disorder. 9. Posttraumatic stress disorder. 10. Pain in the left forearm with a history of fracture of ulna and radius. 11. Tachycardia 12. Hypoxemia at night marginal improved after 2 L of nasal cannula oxygen. 13. Process at night. 14. 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 15. Pain syndrome. 16. Hyponatremia 17. Leukopenia 18. New-onset of fever and chills. If it continues then discharge will be held until she is stable. Cont Hosp Indication/DC Plan: placement in snf. CONDITION [id number] Patient Condition: [id number] Guarded HOME CARE INSTRUCTIONS: [id number] Diet Instructions: [id number] Regular [id number] Special Diet: [id number] CARB CONTROLLED ACTIVITY: [id number] Activity Restrictions: [id number] Slowly Increase Activity [id number] Bathing Restrictions: [id number] Shower FOLLOW UP/APPOINTMENTS Follow-up Plan We will follow in a alf facility. Patient will be followed by Dr. Palomino for chemotherapy and follow up. SCHOOL/WORK RELEASE May return to School/Work with: No. School/Work Release Comment: RUSS Price MD May 30, 2018 20:16
[2018-05-30] MEDS ORDERED: ANAS1TAB PO (20:20)
[2018-05-30] MEDS ORDERED: AMLO-145 PO (20:20)
[2018-05-30] MEDS ORDERED: UDMOM PO (20:21)
[2018-05-30] MEDS ORDERED: DOCU-216 PO (20:21)
[2018-05-30] MEDS ORDERED: TYL500 PO (20:21)
[2018-05-30] MEDS ORDERED: LORA-441 PO (20:21)
[2018-05-30] MEDS ORDERED: ZOLP5TAB PO (20:21)
[2018-05-30] MEDS ORDERED: POLY17PO6 PO (20:21)
[2018-05-30] MEDS ORDERED: BENA5TAB33 PO (20:21)
[2018-05-30] MEDS ORDERED: OXYC20TA41 PO (20:21)
[2018-05-30] MEDS: ACETAMINOPHEN 500 MG TAB PO PRN (20:48)
--- NOTE | 2018-05-30 22:24 | CONS ---
Date/Time of Note Date/Time of Note DATE: 05/30/18 TIME: 16:23 VK LE Assessment/Plan Assessment/Plan Chief Complaint/Hosp Course METASTATIC BREAST Cancer ( PRIMARY IS IN THE L BREAST ) with MULTIPLE BONY METS, PULMONARY METS SEVERE T-L SPINE PAIN WITH DIFFICULTIES TO AMBULATE MRI T-L SPINE- Diffuse osseous metastatic disease of the visualized thoracic spine (T10 - T12), the entire lumbar spine, sacrum, and bilateral iliac bones. Expansion of the posterior T9 vertebral body resulting in central canal stenosis with AP diameter measuring 8 mm. DC ORAL DECADRON CONT AI PAIN CONTROL MRI C - SPINE AND R HIP NOTED BONE SCAN -Multiple skeletal metastases in the axial and appendicular skeleton COMPLETED XRT PLAN CHEMO- TAXOTERE POST PORTACATH PLACEMENT R FEMORAL LESION Because of the extensive and widespread metastatic lesion involving both vestibular part and proximal femoral part of the right hip and even if any surgical procedure is considered, she will need a special custom made acetabular part and proximal femoral part, which can be done in a [facility], probably by oncologic orthopedic surgeon. Even if surgery is considered and she needs to be transferred to a [facility] for the higher level of care including evaluation and care by oncology orthopedic surgeon, it is possible that because of the extensiveness of the metastatic lesions further surgical treatment may not be the recommended. PAIN CONT OXYCONTIN POOR IV ACCESS - post PORTACATH Obesity. Weight loss 60 pounds during the last 2 years by diet PMS. Myopia. Anemia chronic disease. Anxiety disorder. Posttraumatic stress disorder. Pain in the left forearm with a history of fracture of ulna and radius. 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 Date/Type/Reason Admit Date/Time Apr 25, 2018 at 14:37 Initial Consult Date 04/25/18 Requesting Provider: RUSS JEROME MD 24 HR Interval Summary Free Text/Dictation all noted post chemo NAD Exam/Review of Systems Vital Signs Vitals Vital Signs Date Temp Pulse Resp B/P (MAP) Pulse Ox O2 O2 Flow FiO2 Time Delivery Rate 05/30/18 100.0 21:44 05/30/18 114 18 103/57 91 14:48 (72) 05/30/18 Room Air 07:36 05/29/18 2.0 13:51 Intake and Output 12/12/18 12/12/18 12/13/18 1515:00 23:00 07:00 IntakeIntake Total 760 ml 505 ml OutputOutput Total 510 ml BalanceBalance 250 ml 505 ml Exam Constitutional: alert, oriented, well developed, distress, frail; No non-verbal, No other Psych: anxiety, depression; No no complaints, No nl mood/affect, No confusion, No suicidal, No other Head: normocephalic, atraumatic; No lacerations, No hematomas, No other Eyes: EOMI, nl lids, PERRL; No nl conjunctiva, No nl sclera, No icteric, No fundi, disc, No other ENMT: tympanic membranes; No nl external ears & nose, No nl lips & teeth, No nl nasal mucosa & septum, No mucosa pink and moist, No intubated, No other Neck: supple, non-tender, jvd, bruits; No masses, No thyromegaly, No nuchal rigidity, No other Respiratory: clear to auscultation, normal air movement, crackles/rales, diminished breath sounds, respirations; No congested cough, No intercostal retraction, No labored breathing, No tactile fremitus, No wheezing, No other Cardiovascular: regular rate and rhythm, bruits, jugular venous distention (JVD), systolic murmur; No nl pulses, No diastolic murmur, No edema, No gallop, No irregular rhythm, No murmurs/extra sounds, No rub, No S3, No S4, No other Gastrointestinal: soft, non-tender, bowel sounds, distended, hepatomegaly, other (Obesity with thick fatty layer of the anterior abdominal wall with no rebound.); No nl liver, spleen, No ascites, No firm, No mass, No rebound or guarding, No splenomegaly, No surgical scars, No tender Genitourinary - Female: nl adnexae, nl external genitalia, CVA tenderness; No CMT, No uterus, No other Musculoskeletal: joint tenderness, muscle tone, muscle weakness, spine non- tender (Severe tenderness of the intrascapular area lumbosacral area with great difficulty to get up to move. 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: BUFFER CHROME 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; No nl mental status, No nl speech, No nl strength, No confused, No DTR's symmetric, No focal weakness, No lethargic, No numbness, No reflexes, No unresponsive, No other Skin: nl turgor; No rash or lesions, No diaphoresis, No ecchymosis, No laceration, No puncture, No other Lymph: No nl lymph nodes, No enlarged, No nontender, No other BREAST- LARGE L BREAST MASS Medications Medications Current Medications Anastrozole (Arimidex) 1 mg DAILY PO Last administered on 05/30/18 09:24; Admin Dose 1 MG; Start 04/25/18 at 19:00 Zolpidem Tartrate (Ambien) 10 mg HS PRN PO INSOMNIA; Start 04/25/18 at 23:30 Lorazepam (Ativan) 0.5 mg TID PRN PO ANXIETY Last administered on 05/30/18 09:28; Admin Dose 0.5 MG; Start 04/25/18 at 23:30 Magnesium Hydroxide (Milk Of Mag) 30 ml DAILY PRN PO CONSTIPATION Last administered on 04/29/18 09:04; Admin Dose 30 ML; Start 04/27/18 at 21:00 Morphine Sulfate (morphine) 3 mg Q4H PRN IV SEVERE PAIN LEVEL 7-10 Last administered on 05/30/18 19:48; Admin Dose 3 MG; Start 04/27/18 at 21:00 Amlodipine Besylate (Norvasc) 5 mg BID PO Last administered on 05/30/18 20:52; Admin Dose 5 MG; Start 04/28/18 at 04:00 Polyethylene Glycol (Miralax) 17 gm BID PO Last administered on 05/30/18 09:25; Admin Dose 17 GM; Start 04/29/18 at 21:00 Docusate Sodium (Colace) 200 mg BID PO Last administered on 05/30/18 20:51; Admin Dose 200 MG; Start 04/29/18 at 21:00 Benazepril HCl (Lotensin) 5 mg BID PO Last administered on 05/30/18 20:51; Admin Dose 5 MG; Start 04/29/18 at 21:00 Oxycodone HCl (Oxycontin) 20 mg BID PO Last administered on 05/30/18at 20:51; Admin Dose 20 MG; Start 05/01/18 at 21:00 Enoxaparin Sodium (Lovenox) 40 mg DAILY SC Last administered on 05/27/18at 09:25; Admin Dose 40 MG; Start 05/24/18 at 09:00; Status Hold Acetaminophen (Tylenol Tab) 500 mg Q6H PRN PO MILD PAIN(1-3)OR ELEVATED TEMP [place] [facility] administered on 05/30/18at 20:48; Admin Dose 500 MG; Start 05/30/18 at 20:30 Results Result Diagram: 05/30/18210505/30/182105 Results 24 hrs Laboratory Tests Test 05/30/18 21:06 White Blood Count 1.2 L Red Blood Count 3.03 L Hemoglobin 9.7 L Hematocrit 29.6 L Mean Corpuscular Volume 97.7 Mean Corpuscular Hemoglobin 32.0 Mean Corpuscular Hemoglobin Concent 32.8 Red Cell Distribution Width 15.3 H Platelet Count 113 L Mean Platelet Volume 9.1 Immature Granulocytes % 1.600 H Neutrophils % Segmented Neutrophils % (Manual) 56 Band Neutrophils % (Manual) 4 Lymphocytes % Lymphocytes % (Manual) 25 Reactive Lymphocytes % (Manual) 3 H Monocytes % Monocytes % (Manual) 6 Eosinophils % Eosinophils % (Manual) 5 Basophils % Basophils % (Manual) 1 Nucleated Red Blood Cells % 1 H Immature Granulocytes # 0.020 Neutrophils # Neutrophils # (Manual) 0.7 L Band Neutrophils # 0.0 Lymphocytes (Manual) 0.3 L Lymphocytes # Reactive Lymphocytes # 0.0 Monocytes # Monocytes # (Manual) 0.0 L Eosinophils # Basophils # Basophils # (Manual) 0.0 Nucleated Red Blood Cells # Platelet Estimate DECREASED Giant Platelets 5 H Poikilocytosis 1+ Sodium Level 133 L Potassium Level 4.6 Chloride Level 103 Carbon Dioxide Level 26 Anion Gap 4 L Blood Urea Nitrogen 11 Creatinine 0.43 L Est Glomerular Filtrat Rate mL/min > 60 Glucose Level 115 Calcium Level 7.1 L Total Bilirubin 0.4 Direct Bilirubin 0.00 Indirect Bilirubin 0.4 Aspartate Amino Transf (AST/SGOT) 31 Alanine Aminotransferase (ALT/SGPT) 31 Alkaline Phosphatase 340 H Total Protein 5.1 L Albumin 2.6 L Globulin 2.50 Albumin/Globulin Ratio 1.04 DES DUNAWAY MD May 30, 2018 22:24
[2018-05-31] MEDS: LORAZEPAM 0.5 MG TAB PO PRN ×2 (01:44→22:04)
[2018-05-31 02:00] VITALS: BP 88/59; PULSE 101; RESP 20
[2018-05-31] MEDS: morphine 4 MG/ML VIAL IV PRN ×5 (04:25→22:05)
[2018-05-31] MEDS: ACETAMINOPHEN 500 MG TAB PO PRN ×2 (04:28→18:16)
[2018-05-31 08:29] VITALS: BP 100/62; PULSE 105; RESP 20
[2018-05-31] MEDS: BENAZEPRIL 5 MG TAB PO SCH (09:00)
[2018-05-31] MEDS: DOCUSATE SODIUM 100 MG CAP PO SCH ×2 (09:23→20:13)
[2018-05-31] MEDS: oxyCODONE (CR) 20 MG TAB [oxyCONTIN] PO SCH ×2 (09:23→20:14)
[2018-05-31] MEDS: ANASTROZOLE 1 MG TAB PO SCH (09:25)
[2018-05-31] MEDS: AMLODIPINE 5 MG TAB PO SCH ×2 (09:26→20:13)
--- NOTE | 2018-05-31 10:10 | CONS ---
Date/Time of Note Date/Time of Note DATE: 05/31/18 TIME: 10:10 Assessment/Plan Assessment/Plan Chief Complaint/Hosp Course METASTATIC BREAST Cancer ( PRIMARY IS IN THE L BREAST ) with MULTIPLE BONY METS, PULMONARY METS SEVERE T-L SPINE PAIN WITH DIFFICULTIES TO AMBULATE MRI T-L SPINE- Diffuse osseous metastatic disease of the visualized thoracic spine (T10 - T12), the entire lumbar spine, sacrum, and bilateral iliac bones. Expansion of the posterior T9 vertebral body resulting in central canal stenosis with AP diameter measuring 8 mm. DC ORAL DECADRON CONT AI PAIN CONTROL MRI C - SPINE AND R HIP NOTED BONE SCAN -Multiple skeletal metastases in the axial and appendicular skeleton COMPLETED XRT PLAN CHEMO- TAXOTERE POST PORTACATH PLACEMENT R FEMORAL LESION Because of the extensive and widespread metastatic lesion involving both vestibular part and proximal femoral part of the right hip and even if any surgical procedure is considered, she will need a special custom made acetabular part and proximal femoral part, which can be done in a [facility], probably by oncologic orthopedic surgeon. Even if surgery is considered and she needs to be transferred to a [facility] [place] for the higher level of care including evaluation and care by oncology orthopedic surgeon, it is possible that because of the extensiveness of the metastatic lesions further surgical treatment may not be the recommended. PAIN CONT OXYCONTIN POOR IV ACCESS - post PORTACATH Obesity. Weight loss 60 pounds during the last 2 years by diet PMS. Myopia. Anemia chronic disease. Anxiety disorder. Posttraumatic stress disorder. Pain in the left forearm with a history of fracture of ulna and radius. 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 Consultation Date/Type/Reason Admit Date/Time Apr 25, 2018 at 14:37 Initial Consult Date 04/25/18 Requesting Provider: RUSS JEROME MD 24 HR Interval Summary Free Text/Dictation ALL NOTED D/W RN Exam/Review of Systems Vital Signs Vitals Vital Signs Date Temp Pulse Resp B/P (MAP) Pulse Ox O2 O2 Flow FiO2 Time Delivery Rate 05/31/18 99.7 105 20 100/62 93 Room Air 08:29 (75) 05/29/18 2.0 13:51 Intake and Output 05/30/18 05/30/18 05/31/18 1515:00 23:00 07:00 IntakeIntake Total 340 ml 240 ml OutputOutput Total 1 ml 1 ml BalanceBalance 339 ml 239 ml Exam Constitutional: alert, oriented, well developed, distress, frail; No non-verbal, No other Psych: anxiety, depression; No no complaints, No nl mood/affect, No confusion, No suicidal, No other Head: normocephalic, atraumatic; No lacerations, No hematomas, No other Eyes: EOMI, nl lids, PERRL; No nl conjunctiva, No nl sclera, No icteric, No fundi, disc, No other ENMT: tympanic membranes; No nl external ears & nose, No nl lips & teeth, No nl nasal mucosa & septum, No mucosa pink and moist, No intubated, No other Neck: supple, non-tender, jvd, bruits; No masses, No thyromegaly, No nuchal rigidity, No other Respiratory: clear to auscultation, normal air movement, crackles/rales, diminished breath sounds, respirations; No congested cough, No intercostal retraction, No labored breathing, No tactile fremitus, No wheezing, No other Cardiovascular: regular rate and rhythm, bruits, jugular venous distention (JVD), systolic murmur; No nl pulses, No diastolic murmur, No edema, No gallop, No irregular rhythm, No murmurs/extra sounds, No rub, No S3, No S4, No other Gastrointestinal: soft, non-tender, bowel sounds, distended, hepatomegaly, other (Obesity with thick fatty layer of the anterior abdominal wall with no rebound.); No nl liver, spleen, No ascites, No firm, No mass, No rebound or guarding, No splenomegaly, No surgical scars, No tender Genitourinary - Female: nl adnexae, nl external genitalia, CVA tenderness; No CMT, No uterus, No other Musculoskeletal: joint tenderness, muscle tone, muscle weakness, spine non- tender (Severe tenderness of the intrascapular area lumbosacral area with great difficulty to get up to move. 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: GLASS SANDER BELT 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; No nl mental status, No nl speech, No nl strength, No confused, No DTR's symmetric, No focal weakness, No lethargic, No numbness, No reflexes, No unresponsive, No other Skin: nl turgor; No rash or lesions, No diaphoresis, No ecchymosis, No laceration, No puncture, No other Lymph: No nl lymph nodes, No enlarged, No nontender, No other BREAST- LARGE L BREAST MASS Medications Medications Current Medications Anastrozole (Arimidex) 1 mg DAILY PO Last administered on 05/31/18 09:25; Admin Dose 1 MG; Start 04/25/18 at 19:00 Zolpidem Tartrate (Ambien) 10 mg HS PRN PO INSOMNIA; Start 04/25/18 at 23:30 Lorazepam (Ativan) 0.5 mg TID PRN PO ANXIETY Last administered on 05/31/18 01:44; Admin Dose 0.5 MG; Start 04/25/18 at 23:30 Magnesium Hydroxide (Milk Of Mag) 30 ml DAILY PRN PO CONSTIPATION Last administered on 04/29/18 09:04; Admin Dose 30 ML; Start 04/27/18 at 21:00 Morphine Sulfate (morphine) 3 mg Q4H PRN IV SEVERE PAIN LEVEL 7-10 Last administered on 05/31/18 04:25; Admin Dose 3 MG; Start 04/27/18 at 21:00 Amlodipine Besylate (Norvasc) 5 mg BID PO Last administered on 05/31/18 09:26; Admin Dose 5 MG; Start 04/28/18 at 04:00 Polyethylene Glycol (Miralax) 17 gm BID PO Last administered on 05/30/18 09:25; Admin Dose 17 GM; Start 04/29/18 at 21:00 Docusate Sodium (Colace) 200 mg BID PO Last administered on 05/31/18 09:23; Admin Dose 200 MG; Start 04/29/18 at 21:00 Benazepril HCl (Lotensin) 5 mg BID PO Last administered on 05/30/18 20:51; Admin Dose 5 MG; Start 04/29/18 at 21:00 Oxycodone HCl (Oxycontin) 20 mg BID PO Last administered on 12/14/18at 09:23; Admin Dose 20 MG; Start 05/01/18 at 21:00 Enoxaparin Sodium (Lovenox) 40 mg DAILY SC Last administered on 05/27/18at 09:25; Admin Dose 40 MG; Start 05/24/18 at 09:00; Status Hold Acetaminophen (Tylenol Tab) 500 mg Q6H PRN PO MILD PAIN(1-3)OR ELEVATED TEMP Last administered on 05/31/18at 04:28; Admin Dose 500 MG; Start 05/30/18 at 20:30 Results Result Diagram: 05/30/18210505/30/182105 Results 24 hrs Laboratory Tests Test 05/30/18 21:06 05/30/18 22:37 White Blood Count 1.2 L Red Blood Count 3.03 L Hemoglobin 9.7 L Hematocrit 29.6 L Mean Corpuscular Volume 97.7 Mean Corpuscular Hemoglobin 32.0 Mean Corpuscular Hemoglobin Concent 32.8 Red Cell Distribution Width 15.3 H Platelet Count 113 L Mean Platelet Volume 9.1 Immature Granulocytes % 1.600 H Neutrophils % Segmented Neutrophils % (Manual) 56 Band Neutrophils % (Manual) 4 Lymphocytes % Lymphocytes % (Manual) 25 Reactive Lymphocytes % (Manual) 3 H Monocytes % Monocytes % (Manual) 6 Eosinophils % Eosinophils % (Manual) 5 Basophils % Basophils % (Manual) 1 Nucleated Red Blood Cells % 1 H Immature Granulocytes # 0.020 Neutrophils # Neutrophils # (Manual) 0.7 L Band Neutrophils # 0.0 Lymphocytes (Manual) 0.3 L Lymphocytes # Reactive Lymphocytes # 0.0 Monocytes # Monocytes # (Manual) 0.0 L Eosinophils # Basophils # Basophils # (Manual) 0.0 Nucleated Red Blood Cells # Platelet Estimate DECREASED Giant Platelets 5 H Poikilocytosis 1+ Sodium Level 133 L Potassium Level 4.6 Chloride Level 103 Carbon Dioxide Level 26 Anion Gap 4 L Blood Urea Nitrogen 11 Creatinine 0.43 L Est Glomerular Filtrat Rate mL/min > 60 Glucose Level 115 Calcium Level 7.1 L Total Bilirubin 0.4 Direct Bilirubin 0.00 Indirect Bilirubin 0.4 Aspartate Amino Transf (AST/SGOT) 31 Alanine Aminotransferase (ALT/SGPT) 31 Alkaline Phosphatase 340 H Total Protein 5.1 L Albumin 2.6 L Globulin 2.50 Albumin/Globulin Ratio 1.04 Urine Color YELLOW Urine Clarity CLEAR Urine pH 7.0 Urine Specific [place] 1.009 Urine Ketones NEGATIVE Urine Nitrite NEGATIVE Urine Bilirubin NEGATIVE Urine Urobilinogen NEGATIVE Urine Leukocyte Esterase NEGATIVE Urine Hemoglobin NEGATIVE Urine Glucose NEGATIVE Urine Total Protein NEGATIVE DES DUNAWAY MD May 31, 2018 10:10
[2018-05-31] MEDS: CEFTRIAXONE 1 GM/50 ML (PMX) 50 ML IVPB SCH (13:45)
[2018-05-31] MEDS: POLYETHYLENE GLYCOL 17 GM PACKET PO SCH (13:46)
[2018-05-31 15:39] VITALS: BP 111/61; PULSE 103; RESP 20
[2018-05-31 19:45] VITALS: BP 125/70; PULSE 107; RESP 18
[2018-05-31 22:03] VITALS: BP 125/65; PULSE 88; RESP 18
[2018-06-01 00:23] VITALS: BP 120/75; PULSE 94; RESP 18
--- NOTE | 2018-06-01 01:11 | PN ---
DATE: 05/31/2018 I am covering for Dr. Morrissey today. SUBJECTIVE: Follow up on metastatic breast cancer with extensive thoracolumbar spine osseous metasta sis and pelvic metastasis, anemia, and anxiety. The patient denies any chest pain or shortness of br eath. She is breathing comfortably at rest. No reported chills. No reported fall. The patient mack s have intermittent low-grade fever. No reported vomiting. PHYSICAL EXAMINATION: GENERAL: The patient is awake, alert. VITAL SIGNS: Temperature 99.2, pulse 103, respiration 20, blood pressure 111/61, O2 saturation 97% o n room air. HEENT: No eye discharge or redness. Conjunctivae and lids normal. Oropharynx clear. NECK: No mass. CHEST: Fairly clear. CARDIOVASCULAR: S1, S2 normal. No murmur. ABDOMEN: Soft, nondistended, nontender. Bowel sounds plus. EXTREMITIES: No leg edema. NEUROLOGIC: The patient is awake, alert, fairly oriented with generalized weakness. LABORATORY DATA: WBC 1, hemoglobin 9.2, platelet 101, neutrophils 69%, bands 5%. Chemistry: Sodium 134, potassium 4.2, BUN 11, creatinine 0.3, glucose 108. IMPRESSION: 1. Neutropenia and intermittent fever. The patient has been started on IV Rocephin, and urine cultu re and blood culture are underway. The patient did have an episode of Proteus mirabilis and Klebsiel la pneumoniae urinary tract infection. Proteus was sensitive to Rocephin. Therefore, same antibioti c has been used. 2. The patient also has pancytopenia. The patient is being followed by Dr. Fernández. We will give Neupogen. 3. Hypertension. Blood pressure well controlled with Norvasc. 4. Metastatic cancer. Continue Arimidex. 5. Pelvic metastases. No surgical intervention at this time as per oncology. DISPOSITION: The patient is currently not stable for transfer to SNF. Further recommendation will depend on the patient's hospital course. Dictated By: SONIA TATE/KEANU Conf#: [id number] DID#: [id number] CC: RUSS MORRISSEY MD;*EndCC*
[2018-06-01] MEDS: morphine 4 MG/ML VIAL IV PRN ×6 (02:06→22:29)
[2018-06-01] MEDS: ACETAMINOPHEN 500 MG TAB PO PRN ×2 (07:37→20:23)
[2018-06-01] MEDS: oxyCODONE (CR) 20 MG TAB [oxyCONTIN] PO SCH ×2 (08:59→20:29)
[2018-06-01] MEDS: AMLODIPINE 5 MG TAB PO SCH ×2 (09:00→20:29)
[2018-06-01] MEDS: ANASTROZOLE 1 MG TAB PO SCH (09:03)
--- NOTE | 2018-06-01 11:58 | PN ---
Date/Time of Note Date/Time of Note DATE: 06/01/18 TIME: 11:57 Assessment/Plan VTE Prophylaxis Risk score (from Ns)>0 risk: 6 SCD applied (from Ns): Yes Pharmacological prophylaxis: LMWH Lines/Catheters IV [facility]ter [facility] Central Line Central line still needed: Yes Urinary Cath still in place: No Assessment/Plan Hospital Course 1. Neutropenia and intermittent fever. The patient has been started on IV Rocephin, and urine culture and blood culture are underway. The patient did have an episode of Proteus mirabilis and Klebsiella pneumoniae urinary tract infection. Proteus was sensitive to Rocephin. Therefore, same antibiotic has been used. 2. The patient also has pancytopenia. The patient is being followed by Dr. Fernández. We will give Neupogen. 3. Hypertension. Blood pressure well controlled with Norvasc. 4. Metastatic cancer. Continue Arimidex. 5. Pelvic metastases. No surgical intervention at this time as per oncology. Subjective 24 Hr Interval Summary Free Text/Dictation Patient complain of pain in right hip and also was noted to have fever earlier today Exam/Review of Systems Vital Signs Vitals Vital Signs Date Temp Pulse Resp B/P (MAP) Pulse Ox O2 O2 Flow FiO2 Time Delivery Rate 06/01/18 98.3 08:22 06/01/18 94 18 120/75 97 Room Air 00:23 (90) 05/29/18 2.0 13:51 Intake and Output 05/31/18 05/31/18 06/01/18 1515:00 23:00 07:00 IntakeIntake Total 890 ml 610 ml 700 ml OutputOutput Total 2 ml 201 ml 254 ml BalanceBalance 888 ml 409 ml 446 ml Exam Constitutional: well developed Head: normocephalic, atraumatic Neck: supple Respiratory: diminished breath sounds Cardiovascular: regular rate and rhythm Gastrointestinal: soft, non-tender Extremities: normal pulses Medications Medications Current Medications Anastrozole (Arimidex) 1 mg DAILY PO Last administered on 06/01/18at 09:03; Admin Dose 1 MG; Start 04/25/18 at 19:00 Zolpidem Tartrate (Ambien) 10 mg HS PRN PO INSOMNIA; Start 04/25/18 at 23:30 Lorazepam (Ativan) 0.5 mg TID PRN PO ANXIETY Last administered on 05/31/18 22:04; Admin Dose 0.5 MG; Start 04/25/18 at 23:30 Magnesium Hydroxide (Milk Of Mag) 30 ml DAILY PRN PO CONSTIPATION Last administered on 04/29/18 09:04; Admin Dose 30 ML; Start 04/27/18 at 21:00 Morphine Sulfate (morphine) 3 mg Q4H PRN IV SEVERE PAIN LEVEL 7-10 Last administered on 06/01/18 09:41; Admin Dose 3 MG; Start 04/27/18 at 21:00 Amlodipine Besylate (Norvasc) 5 mg BID PO Last administered on 06/01/18 09:00; Admin Dose 5 MG; Start 04/28/18 at 04:00 Oxycodone HCl (Oxycontin) 20 mg BID PO Last administered on 06/01/18 08:59; Admin Dose 20 MG; Start 05/01/18 at 21:00 Enoxaparin Sodium (Lovenox) 40 mg DAILY SC Last administered on 05/27/18at 09:25; Admin Dose 40 MG; Start 05/24/18 at 09:00; Status Hold Acetaminophen (Tylenol Tab) 500 mg Q6H PRN PO MILD PAIN(1-3)OR ELEVATED TEMP Last administered on 06/01/18at 07:37; Admin Dose 500 MG; Start 05/30/18 at 20:30 Ceftriaxone Sodium 50 ml @ 100 mls/hr Q24H IVPB Last administered on 05/31/18at 13:45; Admin Dose 100 MLS/HR; Start 05/31/18 at 12:30 Filgrastim (Neupogen) 300 mcg DAILY@17 SC ; Start 06/01/18 at 17:00; Stop 06/04/18 at 16:59 Results Result Diagram: 06/01/18 0502 05/31/18 1433 Results 24 hrs Laboratory Tests Test 05/31/18 14:33 06/01/18 05:02 White Blood Count 1.0 L 1.1 L Red Blood Count 2.96 L 2.90 L Hemoglobin 9.2 L 9.0 L Hematocrit 28.5 L 27.6 L Mean Corpuscular Volume 96.3 95.2 Mean Corpuscular Hemoglobin 31.1 31.0 Mean Corpuscular Hemoglobin Concent 32.3 32.6 Red Cell Distribution Width 15.2 H 15.4 H Platelet Count 101 L 104 L Mean Platelet Volume 9.4 9.8 Immature Granulocytes % 1.000 H 1.000 H Neutrophils % Segmented Neutrophils % (Manual) 69 60 Band Neutrophils % (Manual) 5 H 14 H Lymphocytes % Lymphocytes % (Manual) 13 L 13 L Reactive Lymphocytes % (Manual) 7 H 2 H Monocytes % Monocytes % (Manual) 4 6 Eosinophils % Basophils % Metamyelocytes % (manual) 2 H Nucleated Red Blood Cells % 1 H 1 H Immature Granulocytes # 0.010 0.010 Neutrophils # Neutrophils # (Manual) 0.7 L 0.7 L Band Neutrophils # 0.0 0.1 Lymphocytes (Manual) 0.1 L 0.1 L Lymphocytes # Reactive Lymphocytes # 0.0 0.0 Monocytes # Monocytes # (Manual) 0.0 L 0.0 L Eosinophils # Basophils # Metamyelocytes # 0.0 Nucleated Red Blood Cells # Polychromasia 1+ Hypochromasia 1+ Anisocytosis 1+ Microcytosis 1+ Sodium Level 134 L Potassium Level 4.2 Chloride Level 105 Carbon Dioxide Level 24 Anion Gap 5 Blood Urea Nitrogen 11 Creatinine 0.37 L Est Glomerular Filtrat Rate mL/min > 60 Glucose Level 108 Calcium Level 7.2 L Eosinophils % (Manual) 4 Basophils % (Manual) 1 Basophils # (Manual) 0.0 Platelet Estimate DECREASED LETITIA LOPEZ Jun 01, 2018 11:58
[2018-06-01] MEDS: MAGNESIUM HYDROXIDE 30ML CUP PO PRN (12:15)
[2018-06-01] MEDS: CEFTRIAXONE 1 GM/50 ML (PMX) 50 ML IVPB SCH (12:15)
[2018-06-01 13:32] VITALS: BP 109/63; PULSE 104; RESP 16
[2018-06-01] MEDS: FILGRASTIM 300 MCG INJ SC SCH (17:11)
[2018-06-01 19:50] VITALS: BP 98/62; PULSE 126; RESP 20
--- NOTE | 2018-06-01 23:09 | CONS ---
Date/Time of Note Date/Time of Note DATE: 06/01/18 TIME: 23:06 Assessment/Plan Assessment/Plan Chief Complaint/Hosp Course NEUTROPENIC FEVER NEUPOGEN CULTURES ID ATB METASTATIC BREAST Cancer ( PRIMARY IS IN THE L BREAST ) with MULTIPLE BONY METS, PULMONARY METS SEVERE T-L SPINE PAIN WITH DIFFICULTIES TO AMBULATE MRI T-L SPINE- Diffuse osseous metastatic disease of the visualized thoracic spine (T10 - T12), the entire lumbar spine, sacrum, and bilateral iliac bones. Expansion of the posterior T9 vertebral body resulting in central canal stenosis with AP diameter measuring 8 mm. DC ORAL DECADRON CONT AI PAIN CONTROL MRI C - SPINE AND R HIP NOTED BONE SCAN -Multiple skeletal metastases in the axial and appendicular skeleton COMPLETED XRT PLAN CHEMO- TAXOTERE POST PORTACATH PLACEMENT R FEMORAL LESION Because of the extensive and widespread metastatic lesion involving both vestibular part and proximal femoral part of the right hip and even if any surgical procedure is considered, she will need a special custom made acetabular part and proximal femoral part, which can be done in a big [facility], probably by oncologic orthopedic surgeon. Even if surgery is considered and she needs to be transferred to a [facility] [place] for the higher level of care including evaluation and care by oncology orthopedic surgeon, it is possible that because of the extensiveness of the metastatic lesions further surgical treatment may not be the recommended. PAIN CONT OXYCONTIN POOR IV ACCESS - post PORTACATH Obesity. Weight loss 60 pounds during the last 2 years by diet PMS. Myopia. Anemia chronic disease. Anxiety disorder. Posttraumatic stress disorder. Pain in the left forearm with a history of fracture of ulna and radius. 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 Consultation Date/Type/Reason Admit Date/Time Apr 25, 2018 at 14:37 Initial Consult Date 04/25/18 Requesting Provider: RUSS JEROME MD 24 HR Interval Summary Free Text/Dictation ALL NOTED NAD POST CHEMO NEUTROPENIC FEVER Exam/Review of Systems Vital Signs Vitals Vital Signs Date Temp Pulse Resp B/P (MAP) Pulse Ox O2 O2 Flow FiO2 Time Delivery Rate 06/01/18 99.2 21:10 06/01/18 126 20 98/62 (74) 91 19:50 06/01/18 Room Air 13:32 05/29/18 2.0 13:51 Intake and Output 05/31/18 05/31/1806/01/18 1515:00 23:00 07:00 IntakeIntake Total 890 ml 610 ml 700 ml OutputOutput Total 2 ml 201 ml 254 ml BalanceBalance 888 ml 409 ml 446 ml Exam Constitutional: alert, oriented, well developed, distress, frail; No non-verbal, No other Psych: anxiety, depression; No no complaints, No nl mood/affect, No confusion, No suicidal, No other Head: normocephalic, atraumatic; No lacerations, No hematomas, No other Eyes: EOMI, nl lids, PERRL; No nl conjunctiva, No nl sclera, No icteric, No fundi, disc, No other ENMT: tympanic membranes; No nl external ears & nose, No nl lips & teeth, No nl nasal mucosa & septum, No mucosa pink and moist, No intubated, No other Neck: supple, non-tender, jvd, bruits; No masses, No thyromegaly, No nuchal rigidity, No other Respiratory: clear to auscultation, normal air movement, crackles/rales, diminished breath sounds, respirations; No congested cough, No intercostal retraction, No labored breathing, No tactile fremitus, No wheezing, No other Cardiovascular: regular rate and rhythm, bruits, jugular venous distention (JVD), systolic murmur; No nl pulses, No diastolic murmur, No edema, No gallop, No irregular rhythm, No murmurs/extra sounds, No rub, No S3, No S4, No other Gastrointestinal: soft, non-tender, bowel sounds, distended, hepatomegaly, other (Obesity with thick fatty layer of the anterior abdominal wall with no rebound.); No nl liver, spleen, No ascites, No firm, No mass, No rebound or guarding, No splenomegaly, No surgical scars, No tender Genitourinary - Female: nl adnexae, nl external genitalia, CVA tenderness; No CMT, No uterus, No other Musculoskeletal: joint tenderness, muscle tone, muscle weakness, spine non- tender (Severe tenderness of the intrascapular area lumbosacral area with great difficulty to get up to move. 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: STOCK PULLER 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; No nl mental status, No nl speech, No nl strength, No confused, No DTR's symmetric, No focal weakness, No lethargic, No numbness, No reflexes, No unresponsive, No other Skin: nl turgor; No rash or lesions, No diaphoresis, No ecchymosis, No laceration, No puncture, No other Lymph: No nl lymph nodes, No enlarged, No nontender, No other BREAST- LARGE L BREAST MASS Medications Medications Current Medications Anastrozole (Arimidex) 1 mg DAILY PO Last administered on 06/01/18 09:03; Admin Dose 1 MG; Start 04/25/18 at 19:00 Zolpidem Tartrate (Ambien) 10 mg HS PRN PO INSOMNIA; Start 04/25/18 at 23:30 Lorazepam (Ativan) 0.5 mg TID PRN PO ANXIETY Last administered on 05/31/18 22:04; Admin Dose 0.5 MG; Start 04/25/18 at 23:30 Magnesium Hydroxide (Milk Of Mag) 30 ml DAILY PRN PO CONSTIPATION Last administ ered on 06/01/18 12:15; Admin Dose 30 ML; Start 04/27/18 at 21:00 Morphine Sulfate (morphine) 3 mg Q4H PRN IV SEVERE PAIN LEVEL 7-10 Last administered on 06/01/18 22:29; Admin Dose 3 MG; Start 04/27/18 at 21:00 Amlodipine Besylate (Norvasc) 5 mg BID PO Last administered on 06/01/18 09:00; Admin Dose 5 MG; Start 04/28/18 at 04:00 Oxycodone HCl (Oxycontin) 20 mg BID PO Last administered on 06/01/18 20:29; Admin Dose 20 MG; Start 05/01/18 at 21:00 Enoxaparin Sodium (Lovenox) 40 mg DAILY SC Last administered on 05/27/18 09:25; Admin Dose 40 MG; Start 05/24/18 at 09:00; Status Hold Acetaminophen (Tylenol Tab) 500 mg Q6H PRN PO MILD PAIN(1-3)OR ELEVATED TEMP Last administered on 06/01/18at 20:23; Admin Dose 500 MG; Start 05/30/18 at 20:30 Ceftriaxone Sodium 50 ml @ 100 mls/hr Q24H IVPB Last administered on 06/01/18at 12:15; Admin Dose 100 MLS/HR; Start 05/31/18 at 12:30 Filgrastim (Neupogen) 300 mcg DAILY@17 SC Last administered on 06/01/18at 17:11; Admin Dose 300 MCG; Start 06/01/18 at 17:00; Stop 06/04/18 at 16:59 Results Result Diagram: 06/01/18 0502 05/31/18 1433 Results 24 hrs Laboratory Tests Test 06/01/18 05:02 White Blood Count 1.1 L Red Blood Count 2.90 L Hemoglobin 9.0 L Hematocrit 27.6 L Mean Corpuscular Volume 95.2 Mean Corpuscular Hemoglobin 31.0 Mean Corpuscular Hemoglobin Concent 32.6 Red Cell Distribution Width 15.4 H Platelet Count 104 L Mean Platelet Volume 9.8 Immature Granulocytes % 1.000 H Neutrophils % Segmented Neutrophils % (Manual) 60 Band Neutrophils % (Manual) 14 H Lymphocytes % Lymphocytes % (Manual) 13 L Reactive Lymphocytes % (Manual) 2 H Monocytes % Monocytes % (Manual) 6 Eosinophils % Eosinophils % (Manual) 4 Basophils % Basophils % (Manual) 1 Nucleated Red Blood Cells % 1 H Immature Granulocytes # 0.010 Neutrophils # Neutrophils # (Manual) 0.7 L Band Neutrophils # 0.1 Lymphocytes (Manual) 0.1 L Lymphocytes # Reactive Lymphocytes # 0.0 Monocytes # Monocytes # (Manual) 0.0 L Eosinophils # Basophils # Basophils # (Manual) 0.0 Nucleated Red Blood Cells # Platelet Estimate DECREASED DES DUNAWAY MD Jun 01, 2018 23:09
[2018-06-01] MEDS ORDERED: VANCOMYCIN IV PER PHARMACY XX SCH (23:30)
[2018-06-02] MEDS: MEROPENEM 1 GM/50ML(PMX) 50 ML IVPB SCH ×4 (00:24→21:10)
[2018-06-02] MEDS ORDERED: VANCOMYCIN 1.5 GM in SOD CHLORIDE 0.9% 250 ML IVPB ONE (01:00)
[2018-06-02 02:33] VITALS: BP 105/66; PULSE 97; RESP 18
[2018-06-02] MEDS: morphine 4 MG/ML VIAL IV PRN ×5 (02:41→21:10)
[2018-06-02] MEDS: LORAZEPAM 0.5 MG TAB PO PRN ×2 (02:41→21:10)
[2018-06-02 07:56] VITALS: BP 105/75; PULSE 109; RESP 18
[2018-06-02] MEDS: oxyCODONE (CR) 20 MG TAB [oxyCONTIN] PO SCH ×2 (08:26→20:20)
[2018-06-02] MEDS: AMLODIPINE 5 MG TAB PO SCH ×2 (08:27→20:21)
[2018-06-02] MEDS: ANASTROZOLE 1 MG TAB PO SCH (08:28)
[2018-06-02] MEDS ORDERED: VANCOMYCIN 1.25 GM in SOD CHLORIDE 0.9% 250 ML IVPB SCH (09:00)
[2018-06-02] MEDS: MAGNESIUM HYDROXIDE 30ML CUP PO PRN (09:15)
[2018-06-02] MEDS: VANCOMYCIN 1 GM 250 ML IVPB SCH ×2 (09:15→17:05)
[2018-06-02] MEDS: CHOLECALCIFEROL 2,000 UNIT CAP PO SCH (09:16)
--- NOTE | 2018-06-02 11:50 | PN ---
Date/Time of Note Date/Time of Note DATE: 06/02/18 TIME: 11:50 Assessment/Plan VTE Prophylaxis Risk score (from [facility] [place])>0 risk: 6 SCD applied (from [facility] [place]): Yes Pharmacological prophylaxis: LMWH Lines/Catheters IV [facility]atheter [facility] ([facility] PORT-A-CATH Urinary Cath still in place: No Assessment/Plan Hospital Course 1. Neutropenia and intermittent fever. The patient has been started on IV Rocephin, and urine culture and blood culture are underway. The patient did have an episode of Proteus mirabilis and Klebsiella pneumoniae urinary tract infection. Proteus was sensitive to Rocephin. Therefore, same antibiotic has been used. 2. The patient also has pancytopenia. The patient is being followed by Dr. Fernández. We will give Neupogen. 3. Hypertension. Blood pressure well controlled with Norvasc. 4. Metastatic cancer. Continue Arimidex. 5. Pelvic metastases. No surgical intervention at this time as per oncology. Subjective 24 Hr Interval Summary Free Text/Dictation Patient has no complaints Exam/Review of Systems Vital Signs Vitals Vital Signs Date Temp Pulse Resp B/P (MAP) Pulse Ox O2 O2 Flow FiO2 Time Delivery Rate 06/02/18 99.2 109 18 105/75 92 Room Air 07:56 (85) 05/29/18 2.0 13:51 Intake and Output 06/01/18 06/01/18 06/02/18 1515:00 23:00 07:00 IntakeIntake Total 700 ml 300 ml 350 ml OutputOutput Total 700 ml 800 ml BalanceBalance 0 ml 300 ml -450 ml Exam Constitutional: well developed Head: normocephalic, atraumatic Neck: supple Respiratory: diminished breath sounds Cardiovascular: regular rate and rhythm Gastrointestinal: soft, non-tender Extremities: normal pulses Medications Medications Current Medications Anastrozole (Arimidex) 1 mg DAILY PO Last administered on 06/02/18at 08:28; Admin Dose 1 MG; Start 04/25/18 at 19:00 Zolpidem Tartrate (Ambien) 10 mg HS PRN PO INSOMNIA; Start 04/25/18 at 23:30 Lorazepam (Ativan) 0.5 mg TID PRN PO ANXIETY Last administered on 06/02/18at 02:41; Admin Dose 0.5 MG; Start 04/25/18 at 23:30 Magnesium Hydroxide (Milk Of Mag) 30 ml DAILY PRN PO CONSTIPATION Last administered on 06/02/18 09:15; Admin Dose 30 ML; Start 04/27/18 at 21:00 Morphine Sulfate (morphine) 3 mg Q4H PRN IV SEVERE PAIN LEVEL 7-10 Last administered on 06/02/18 08:26; Admin Dose 3 MG; Start 04/27/18 at 21:00 Amlodipine Besylate (Norvasc) 5 mg BID PO Last administered on 06/02/18 08:27; Admin Dose 5 MG; Start 04/28/18 at 04:00 Oxycodone HCl (Oxycontin) 20 mg BID PO Last administered on 06/02/18 08:26; Admin Dose 20 MG; Start 05/01/18 at 21:00 Enoxaparin Sodium (Lovenox) 40 mg DAILY SC Last administered on 05/27/18 09:25; Admin Dose 40 MG; Start 05/24/18 at 09:00; Status Hold Acetaminophen (Tylenol Tab) 500 mg Q6H PRN PO MILD PAIN(1-3)OR ELEVATED TEMP Last administered on 06/01/18at 20:23; Admin Dose 500 MG; Start 05/30/18 at 20:30 Filgrastim (Neupogen) 300 mcg DAILY@17 SC Last administered on 06/01/18at 17:11; Admin Dose 300 MCG; Start 06/01/18 at 17:00; Stop 06/04/18 at 16:59 Vancomycin HCl (Vanco Iv Per Pharmacy) 1 ea PER PROTOCOL XX ; Start 06/01/18 at 23:30 Meropenem/Sodium Chloride 50 ml @ 100 mls/hr Q8 IVPB Last administered on 06/02/18at 05:05; Admin Dose 100 MLS/HR; Start 06/01/18 at 23:30 Cholecalciferol (Vitamin D) 4,000 unit DAILY PO Last administered on 06/02/18at 09:16; Admin Dose 4,000 UNIT; Start 06/02/18 at 09:00 Vancomycin HCl 250 ml @ 125 mls/hr Q8H IVPB Last administered on 06/02/18at 09:15; Admin Dose 125 MLS/HR; Start 06/02/18 at 09:00 Miscellaneous Information (*Rx Drug Level Order Reminder*) VANCOMYCIN TROUGH AT 0000 ONCE ONCE XX ; Start 06/03/18 at 00:00; Stop 06/03/18 at 00:01 Results Result Diagram: 06/02/18 0445 05/31/18 1433 Results 24 hrs Laboratory Tests Test 06/02/18 00:30 06/02/18 04:45 Urine Color YELLOW Urine Clarity CLEAR Urine pH 6.0 Urine Specific [place] 1.011 Urine Ketones TRACE A Urine Nitrite NEGATIVE Urine Bilirubin NEGATIVE Urine Urobilinogen NEGATIVE Urine Leukocyte Esterase TRACE A Urine Microscopic RBC 0 Urine Microscopic WBC 2 Urine Hemoglobin NEGATIVE Urine Glucose NEGATIVE Urine Total Protein NEGATIVE White Blood Count 1.9 #L Red Blood Count 2.93 L Hemoglobin 9.2 L Hematocrit 27.9 L Mean Corpuscular Volume 95.2 Mean Corpuscular Hemoglobin 31.4 Mean Corpuscular Hemoglobin Concent 33.0 Red Cell Distribution Width 15.4 H Platelet Count 106 L Mean Platelet Volume 9.7 Immature Granulocytes % 7.200 H Neutrophils % Segmented Neutrophils % (Manual) 71 Band Neutrophils % (Manual) 2 Lymphocytes % Lymphocytes % (Manual) 23 Monocytes % Monocytes % (Manual) 3 Eosinophils % Basophils % Basophils % (Manual) 1 Nucleated Red Blood Cells % 0.0 Immature Granulocytes # 0.140 H Neutrophils # Neutrophils # (Manual) 1.3 L Band Neutrophils # 0.0 Lymphocytes (Manual) 0.4 L Lymphocytes # Monocytes # Monocytes # (Manual) 0.0 L Eosinophils # Basophils # Basophils # (Manual) 0.0 Nucleated Red Blood Cells # Platelet Estimate DECREASED Polychromasia 3+ Anisocytosis 1+ Microcytosis 1+ LETITIA LOPEZ Jun 02, 2018 11:50
[2018-06-02] MEDS: FILGRASTIM 300 MCG INJ SC SCH (17:07)
--- NOTE | 2018-06-02 18:44 | CONS ---
Date/Time of Note Date/Time of Note DATE: 06/02/18 TIME: 18:42 Assessment/Plan Assessment/Plan Chief Complaint/Hosp Course NEUTROPENIC FEVER NEUPOGEN CULTURES ID ATB METASTATIC BREAST Cancer ( PRIMARY IS IN THE L BREAST ) with MULTIPLE BONY METS, PULMONARY METS SEVERE T-L SPINE PAIN WITH DIFFICULTIES TO AMBULATE MRI T-L SPINE- Diffuse osseous metastatic disease of the visualized thoracic spine (T10 - T12), the entire lumbar spine, sacrum, and bilateral iliac bones. Expansion of the posterior T9 vertebral body resulting in central canal stenosis with AP diameter measuring 8 mm. DC ORAL DECADRON CONT AI PAIN CONTROL MRI C - SPINE AND R HIP NOTED BONE SCAN -Multiple skeletal metastases in the axial and appendicular skeleton COMPLETED XRT PLAN CHEMO- TAXOTERE POST PORTACATH PLACEMENT R FEMORAL LESION Because of the extensive and widespread metastatic lesion involving both vestibular part and proximal femoral part of the right hip and even if any surgical procedure is considered, she will need a special custom made acetabular part and proximal femoral part, which can be done in a big [facility], probably by oncologic orthopedic surgeon. Even if surgery is considered and she needs to be transferred to a [facility] for the higher level of care including evaluation and care by oncology orthopedic surgeon, it is possible that because of the extensiveness of the metastatic lesions further surgical treatment may not be the recommended. PAIN CONT OXYCONTIN POOR IV ACCESS - post PORTACATH Obesity. Weight loss 60 pounds during the last 2 years by diet PMS. Myopia. Anemia chronic disease. Anxiety disorder. Posttraumatic stress disorder. Pain in the left forearm with a history of fracture of ulna and radius. 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 Consultation Date/Type/Reason Admit Date/Time Apr 25, 2018 at 14:37 Initial Consult Date 04/25/18 Requesting Provider: RUSS JEROME MD 24 HR Interval Summary Free Text/Dictation all noted NAD Exam/Review of Systems Vital Signs Vitals Vital Signs Date Temp Pulse Resp B/P (MAP) Pulse Ox O2 O2 Flow FiO2 Time Delivery Rate 06/02/18 99.2 109 18 105/75 92 Room Air 07:56 (85) 05/29/18 2.0 13:51 Intake and Output 06/01/18 06/01/18 06/02/18 1515:00 23:00 07:00 IntakeIntake Total 700 ml 300 ml 350 ml OutputOutput Total 700 ml 800 ml BalanceBalance 0 ml 300 ml -450 ml Exam Constitutional: alert, oriented, well developed, distress, frail; No non-verbal, No other Psych: anxiety, depression; No no complaints, No nl mood/affect, No confusion, No suicidal, No other Head: normocephalic, atraumatic; No lacerations, No hematomas, No other Eyes: EOMI, nl lids, PERRL; No nl conjunctiva, No nl sclera, No icteric, No fundi, disc, No other ENMT: tympanic membranes; No nl external ears & nose, No nl lips & teeth, No nl nasal mucosa & septum, No mucosa pink and moist, No intubated, No other Neck: supple, non-tender, jvd, bruits; No masses, No thyromegaly, No nuchal rigidity, No other Respiratory: clear to auscultation, normal air movement, crackles/rales, diminished breath sounds, respirations; No congested cough, No intercostal retraction, No labored breathing, No tactile fremitus, No wheezing, No other Cardiovascular: regular rate and rhythm, bruits, jugular venous distention (JVD), systolic murmur; No nl pulses, No diastolic murmur, No edema, No gallop, No irregular rhythm, No murmurs/extra sounds, No rub, No S3, No S4, No other Gastrointestinal: soft, non-tender, bowel sounds, distended, hepatomegaly, other (Obesity with thick fatty layer of the anterior abdominal wall with no rebound.); No nl liver, spleen, No ascites, No firm, No mass, No rebound or guarding, No splenomegaly, No surgical scars, No tender Genitourinary - Female: nl adnexae, nl external genitalia, CVA tenderness; No CMT, No uterus, No other Musculoskeletal: joint tenderness, muscle tone, muscle weakness, spine non- tender (Severe tenderness of the intrascapular area lumbosacral area with great difficulty to get up to move. 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: COMMERCIAL ESTIMATOR 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; No nl mental status, No nl speech, No nl strength, No confused, No DTR's symmetric, No focal weakness, No lethargic, No numbness, No reflexes, No unresponsive, No other Skin: nl turgor; No rash or lesions, No diaphoresis, No ecchymosis, No laceration, No puncture, No other Lymph: No nl lymph nodes, No enlarged, No nontender, No other BREAST- LARGE L BREAST MASS Medications Medications Current Medications Anastrozole (Arimidex) 1 mg DAILY PO Last administered on 06/02/18 08:28; Admin Dose 1 MG; Start 04/25/18 at 19:00 Zolpidem Tartrate (Ambien) 10 mg HS PRN PO INSOMNIA; Start 04/25/18 at 23:30 Lorazepam (Ativan) 0.5 mg TID PRN PO ANXIETY Last administered on 06/02/18 02:41; Admin Dose 0.5 MG; Start 04/25/18 at 23:30 Magnesium Hydroxide (Milk Of Mag) 30 ml DAILY PRN PO CONSTIPATION Last administered on 06/02/18 09:15; Admin Dose 30 ML; Start 04/27/18 at 21:00 Morphine Sulfate (morphine) 3 mg Q4H PRN IV SEVERE PAIN LEVEL 7-10 Last administered on 06/02/18 17:06; Admin Dose 3 MG; Start 04/27/18 at 21:00 Amlodipine Besylate (Norvasc) 5 mg BID PO Last administered on 06/02/18 08:27; Admin Dose 5 MG; Start 04/28/18 at 04:00 Oxycodone HCl (Oxycontin) 20 mg BID PO Last administered on 06/02/18 08:26; Admin Dose 20 MG; Start 05/01/18 at 21:00 Enoxaparin Sodium (Lovenox) 40 mg DAILY SC Last administered on 05/27/18 09:25; Admin Dose 40 MG; Start 05/24/18 at 09:00; Status Hold Acetaminophen (Tylenol Tab) 500 mg Q6H PRN PO MILD PAIN(1-3)OR ELEVATED TEMP [place] [facility] administered on 06/01/18 20:23; Admin Dose 500 MG; Start 05/30/18 at 20:30 Filgrastim (Neupogen) 300 mcg DAILY@17 SC Last administered on 06/02/18at 17:07; Admin Dose 300 MCG; Start 06/01/18 at 17:00; Stop 06/04/18 at 16:59 Vancomycin HCl (Vanco Iv Per Pharmacy) 1 ea PER PROTOCOL XX ; Start 06/01/18 at 23:30 Meropenem/Sodium Chloride 50 ml @ 100 mls/hr Q8 IVPB Last administered on 05/18 12/03at 13:19; Admin Dose 100 MLS/HR; Start 06/01/18 at 23:30 Cholecalciferol (Vitamin D) 4,000 unit DAILY PO Last administered on 06/02/18at 09:16; Admin Dose 4,000 UNIT; Start 06/02/18 at 09:00 Vancomycin HCl 250 ml @ 125 mls/hr Q8H IVPB Last administered on 06/02/18at 17:05; Admin Dose 125 MLS/HR; Start 06/02/18 at 09:00 Miscellaneous Information (*Rx Drug Level Order Reminder*) VANCOMYCIN TROUGH AT 0000 ONCE ONCE XX ; Start 06/03/18 at 00:00; Stop 06/03/18 at 00:01 Results Result Diagram: 06/02/18 0445 05/31/18 1433 Results 24 hrs Laboratory Tests Test 06/02/18 00:30 06/02/18 04:45 Urine Color YELLOW Urine Clarity CLEAR Urine pH 6.0 Urine Specific [place] 1.011 Urine Ketones TRACE A Urine Nitrite NEGATIVE Urine Bilirubin NEGATIVE Urine Urobilinogen NEGATIVE Urine Leukocyte Esterase TRACE A Urine Microscopic RBC 0 Urine Microscopic WBC 2 Urine Hemoglobin NEGATIVE Urine Glucose NEGATIVE Urine Total Protein NEGATIVE White Blood Count 1.9 #L Red Blood Count 2.93 L Hemoglobin 9.2 L Hematocrit 27.9 L Mean Corpuscular Volume 95.2 Mean Corpuscular Hemoglobin 31.4 Mean Corpuscular Hemoglobin Concent 33.0 Red Cell Distribution Width 15.4 H Platelet Count 106 L Mean Platelet Volume 9.7 Immature Granulocytes % 7.200 H Neutrophils % Segmented Neutrophils % (Manual) 71 Band Neutrophils % (Manual) 2 Lymphocytes % Lymphocytes % (Manual) 23 Monocytes % Monocytes % (Manual) 3 Eosinophils % Basophils % Basophils % (Manual) 1 Nucleated Red Blood Cells % 0.0 Immature Granulocytes # 0.140 H Neutrophils # Neutrophils # (Manual) 1.3 L Band Neutrophils # 0.0 Lymphocytes (Manual) 0.4 L Lymphocytes # Monocytes # Monocytes # (Manual) 0.0 L Eosinophils # Basophils # Basophils # (Manual) 0.0 Nucleated Red Blood Cells # Platelet Estimate DECREASED Polychromasia 3+ Anisocytosis 1+ Microcytosis 1+ DES DUNAWAY MD Jun 02, 2018 18:44
[2018-06-02 20:41] VITALS: BP 104/58; PULSE 113; RESP 19
[2018-06-02 23:50] VITALS: PULSE 90
[2018-06-02] MEDS: ACETAMINOPHEN 500 MG TAB PO PRN (23:59)
--- NOTE | 2018-06-03 00:31 | CONS ---
DATE OF ADMISSION: 04/25/2018 DATE OF CONSULTATION: 06/02/2018 TYPE OF CONSULT: Infectious disease. REASON FOR CONSULTATION: Antibiotic management. HISTORY OF PRESENT ILLNESS: Gina Foreman is a 58-year-old female, patient of Dr. Morrissey and of Dr. Fernández. She was admitted with a 10-day history of severe upper to lower back pain. S he was diagnosed as having breast cancer of the left breast about 2 to 3 months ago proved by biopsy. She is under the care of family physician the last 3 years. About 10 days ago, she began to feel p ain in the interscapular area and lumbosacral area. She was seen by Dr. Fernández and diagnosed with metastatic breast cancer. She underwent left breast mass biopsy by Dr. Meneses, which showed invasi ve ductal carcinoma. She had intractable bone pain and was unable to walk. She underwent an outpati ent CT scan which revealed large left breast mass, severe bony destruction, and pulmonary metastasis. The patient has been in the hospital for quite a long time. She was seen by Dr. Sesay, stage IV c arcinoma of the breast, diffuse bony metastasis, evidence of significant disease, at least cord impin gement but without neurological deficits, now on steroids. She complains of cervical pain and right hip pain. She was seen by Dr. Alyssa Shane, orthopedics. Extensive bony metastasis involving the right hip, including pelvic portion of the right hip, including entire acetabulum and proximal femur, incl uding femoral head and neck and intertrochanteric area, and proximal shaft of the femur. According t o Dr. Shane, surgery is very complicated and she would need special custom made acetabular part and pro ximal femoral block which can be done in a major medical center, probably by an oncological orthopedi c surgeon who recommended transfer. She lost 60 pounds over the last 2 years by diet but is signific antly obese. She has intractable pain. She has osseous metastasis. She was seen by nurse juan antonio Jamison. The patient now has neutropenia and intermittent fever. On 05/31, she was started on IV Rocephin. Urine cultures and blood cultures are underway. She had an episode of Proteus mirabil is and Klebsiella pneumonia urinary tract infection sensitive to Rocephin; therefore, same antibiotic has been used. At the present time, she was seen today by Dr. Fernández. White count is 1.9 with 7 1 bands, normal neutrophils. BUN and creatinine are 11/0.37. Urine is clear with trace leukocyte es terase, 2 white cells per high powered field, and she is currently on vancomycin and meropenem. Her last chest x-ray from the shows status post Port-A-Cath placement, small kink at the proximal po rtion of the catheter. Otherwise, no discrete focal consolidation, no pleural effusion. PAST MEDICAL HISTORY: As outlined. FAMILY HISTORY: Noncontributory. SOCIAL HISTORY: She does not smoke, drink, or abuse drugs. ALLERGIES: NONE TO PENICILLIN, SULFA, OR FOODS. MEDICATIONS: Per chart. REVIEW OF SYSTEMS: Noncontributory. PHYSICAL EXAMINATION: GENERAL: The patient is alert, responsive, no acute distress. VITAL SIGNS: Stable. She is afebrile. SKIN: Without generalized rash. HEENT: Within normal limits. NECK: Supple. LYMPH NODES: None palpable. CHEST: Decreased breath sounds at the bases. HEART: Without murmur or gallop. ABDOMEN: Soft, nontender, without organosplenomegaly or masses. EXTREMITIES: Without cyanosis, clubbing, or edema. RECTAL AND GENITAL: Deferred. NEUROLOGIC: No focal neurological abnormality. MUSCULOSKELETAL: With regard to her musculoskeletal system, she has joint tenderness, muscle weaknes s, tenderness over the spine, mildly deformed and swollen left forearm with the patient had a history of trauma. IMPRESSION AND PLAN: I would continue the vancomycin and meropenem at the present time and then tail or her antibiotics depending on whether anything grows. We may want to cut back on her antibiotics a nd put her on either cefepime or continue the meropenem and stop the vancomycin, but at the present t love, we will continue these antibiotics. I want to thank Dr. Fernández and Dr. Morrissey for asking us to see this unfortunate lady in consult ation. Dictated By: PAPA STEVENSON MD, JD/KEANU Conf#: [id number] DID#: [id number] CC: RUSS MORRISSEY MD;*EndCC*
[2018-06-03 00:45] VITALS: PULSE 84
[2018-06-03] MEDS: morphine 4 MG/ML VIAL IV PRN ×6 (01:53→23:36)
[2018-06-03 02:40] VITALS: BP 115/74; PULSE 112; RESP 19
[2018-06-03] MEDS: MEROPENEM 1 GM/50ML(PMX) 50 ML IVPB SCH ×3 (05:34→23:35)
[2018-06-03 07:45] VITALS: BP 105/60; PULSE 92; RESP 18
[2018-06-03] MEDS ORDERED: oxyCODONE (CR) 20 MG TAB [oxyCONTIN] PO SCH (09:14)
[2018-06-03] MEDS: CHOLECALCIFEROL 2,000 UNIT CAP PO SCH (09:58)
[2018-06-03] MEDS: ANASTROZOLE 1 MG TAB PO SCH (09:58)
[2018-06-03] MEDS: AMLODIPINE 5 MG TAB PO SCH (09:59)
[2018-06-03] MEDS: VANCOMYCIN 750 MG in SOD CHLORIDE 0.9% 150 ML IVPB SCH ×2 (11:24→19:55)
--- NOTE | 2018-06-03 15:19 | CONS ---
Date/Time of Note Date/Time of Note DATE: 06/03/18 TIME: 15:19 Assessment/Plan Assessment/Plan Chief Complaint/Hosp Course No acute changes overnight patient is spiking fevers she is alert awake denies pain, no nausea vomiting diarrhea, no dysuria T-max 1012 current 98.3. Indwelling: R chest Port-A-Cath 05/29/18 Antimicrobials: Vancomycin, meropenem Physical examination: Obese well-developed middle-aged [place]-speaking woman who is alert in no distress. Head atraumatic normocephalic sclera nonicteric vehicle mucosa pink. Neck is supple chest rise symmetrical breath sounds diminished bases. Heart: S1-S2. Abdomen soft bowel sounds present extremities without cyanosis Assessment: 1. Neutropenic fevers 2. Metastatic breast cancer 3. Status post urinary tract infection 4. Obesity Plan: Patient remains stable, continue present care antibiotics, Neupogen per oncology, follow final cultures Consultation Date/Type/Reason Admit Date/Time Apr 25, 2018 at 14:37 Initial Consult Date 04/26/18 Type of Consult ID Requesting Provider: RUSS JEROME MD Exam/Review of Systems Vital Signs Vitals Vital Signs Date Temp Pulse Resp B/P (MAP) Pulse Ox O2 O2 Flow FiO2 Time Delivery Rate 06/03/18 98.3 92 18 105/60 96 07:45 (75) 06/02/18 Room Air 07:56 Intake and Output 06/02/18 06/02/18 06/03/18 1515:00 23:00 07:00 IntakeIntake Total 540 ml 500 ml 50 ml BalanceBalance 540 ml 500 ml 50 ml Medications Medications Current Medications Anastrozole (Arimidex) 1 mg DAILY PO Last administered on 06/03/18at 09:58; Admin Dose 1 MG; Start 04/25/18 at 19:00 Zolpidem Tartrate (Ambien) 10 mg HS PRN PO INSOMNIA; Start 04/25/18 at 23:30 Lorazepam (Ativan) 0.5 mg TID PRN PO ANXIETY Last administered on 06/02/18at 21:10; Admin Dose 0.5 MG; Start 04/25/18 at 23:30 Magnesium Hydroxide (Milk Of Mag) 30 ml DAILY PRN PO CONSTIPATION Last adm inistered on 06/02/18at 09:15; Admin Dose 30 ML; Start 04/27/18 at 21:00 Morphine Sulfate (morphine) 3 mg Q4H PRN IV SEVERE PAIN LEVEL 7-10 Last administered on 06/03/18at 14:06; Admin Dose 3 MG; Start 04/27/18 at 21:00 Amlodipine Besylate (Norvasc) 5 mg BID PO Last administered on 06/03/18at 09 :59; Admin Dose 5 MG; Start 04/28/18 at 04:00 Enoxaparin Sodium (Lovenox) 40 mg DAILY SC Last administered on 05/27/18at 09:25; Admin Dose 40 MG; Start 05/24/18 at 09:00; Status Hold Acetaminophen (Tylenol Tab) 500 mg Q6H PRN PO MILD PAIN(1-3)OR ELEVATED TEMP Last administered on 06/02/18at 23:59; Admin Dose 500 MG; Start 05/30/18 at 20:30 Filgrastim (Neupogen) 300 mcg DAILY@17 SC Last administered on 06/02/18at 17:07; Admin Dose 300 MCG; Start 06/01/18 at 17:00; Stop 06/04/18 at 16:59 Vancomycin HCl (Vanco Iv Per Pharmacy) 1 ea PER PROTOCOL XX ; Start 06/01/18 at 23:30 Meropenem/Sodium Chloride 50 ml @ 100 mls/hr Q8 IVPB Last administered on 06/03/18at 14:02; Admin Dose 100 MLS/HR; Start 06/01/18 at 23:30 Cholecalciferol (Vitamin D) 4,000 unit DAILY PO Last administered on 06/03/18at 09:58; Admin Dose 4,000 UNIT; Start 06/02/18 at 09:00 Vancomycin HCl 750 mg/Sodium Chloride 150 ml @ 75 mls/hr Q8H IVPB Last administered on 06/03/18at 11:24; Admin Dose 75 MLS/HR; Start 06/03/18 at 11:00 Miscellaneous Information (*Rx Drug Level Order Reminder*) VANCO TR AT 1,000 ONCE ONCE XX ; Start 06/04/18 at 10:00; Stop 06/04/18 at 10:01 Results Result Diagram: 06/03/18 0001 05/31/18 1433 Results 24 hrs Laboratory Tests Test 06/03/18 00:01 White Blood Count 1.6 L Red Blood Count 2.48 L Hemoglobin 7.9 L Hematocrit 23.5 L Mean Corpuscular Volume 94.8 Mean Corpuscular Hemoglobin 31.9 Mean Corpuscular Hemoglobin Concent 33.6 Red Cell Distribution Width 15.3 H Platelet Count 89 L Mean Platelet Volume 9.7 Immature Granulocytes % 15.400 H Neutrophils % Segmented Neutrophils % (Manual) 36 L Band Neutrophils % (Manual) 26 H Lymphocytes % Lymphocytes % (Manual) 26 Monocytes % Monocytes % (Manual) 4 Eosinophils % Eosinophils % (Manual) 1 Basophils % Metamyelocytes % (manual) 4 H Myelocytes % (Manual) 1 H Promyelocytes % (Manual) 1 H Blast Cells % (Manual) 1.0 H Nucleated Red Blood Cells % 0.0 Immature Granulocytes # 0.240 H Neutrophils # Neutrophils # (Manual) 0.6 L Band Neutrophils # 0.4 Lymphocytes (Manual) 0.4 L Lymphocytes # Monocytes # Monocytes # (Manual) 0.0 L Eosinophils # Basophils # Metamyelocytes # 0.0 Myelocytes # 0.0 Promyelocytes # 0.0 Nucleated Red Blood Cells # Platelet Estimate DECREASED Polychromasia 3+ Anisocytosis 1+ Microcytosis 1+ Vancomycin Level Trough 22.0 *H YUAN ROMERO NP Jun 03, 2018 15:19
[2018-06-03] MEDS: FILGRASTIM 300 MCG INJ SC SCH (17:47)
[2018-06-03 20:46] VITALS: BP 105/58; PULSE 115; RESP 18
[2018-06-03] MEDS: oxyCODONE (CR) 20 MG TAB [oxyCONTIN] PO SCH (21:29)
--- NOTE | 2018-06-03 22:57 | PN ---
Date/Time of Note Date/Time of Note DATE: 06/03/18 TIME: 22:54 Assessment/Plan VTE Prophylaxis Risk score (from Nsg)>0 risk: 4 SCD applied (from Nsg): Yes SCD contraindicated: low risk/ambulating Pharmacological prophylaxis: LMWH Lines/Catheters IV Catheter Type (from Nrsg): PORT-A-CATH Central line still needed: No Urinary Cath still in place: No Assessment/Plan Assessment/Plan 1. Cancer of the left breast. Exact type at this time unknown.MULTIPLE BONY METS, PULMONARY METS 2. Severe pain in the interscapular and lumbar sacral area most probably metastatic lesion possible femoral fracture. pathologic fracture of T9 with 60% of loss of height. Neurosurgical consult planned. 3. Obesity. 4. Weight loss 60 pounds during the last 2 years by diet 5. PMS. 6. Myopia. 7. Anemia chronic disease. 8. Anxiety disorder. 9. Posttraumatic stress disorder. 10. Pain in the left forearm with a history of fracture of ulna and radius. 11. Tachycardia 12. Hypoxemia at night marginal improved after 2 L of nasal cannula oxygen. 13. Process at night. 14. 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 15. Pain syndrome. 16. Hyponatremia 17. Leukopenia 18. Neutropenia with occasional fever and chills. Hold discharge, until she is stable. Cont Hosp Indication/DC Plan: placement in snf. Subjective 24 Hr Interval Summary Free Text/Dictation Weakness. sob developing easily. Worsening of back pain. I am trying not to ask a pain medication until 6 AM. When it is becoming intolerable then I am asking for pain shot. Medication is sufficient to control the pain. Still to have fever and chills. It is making me very weak and I am perspirating a lot. Constitutional: improved, febrile, poor po, requiring IVF, requiring O2; No no complaints, No chills, No diaphoresis, No disoriented, No other Eyes: No no complaints, No pain, No discharge, No redness, No visual change, No other ENT: No no complaints, No bleeding, No pain, No congestion, No discharge, No dysphagia, No sore throat, No other Respiratory: cough, shortness of breath; No no complaints, No pain, No pleuritic pain, No sputum, No wheezing, No other Cardiovascular: chest pain, lightheadedness, orthopenea, palpitations; No no complaints, No edema, No paroxysmal nocturnal dyspnea, No other Gastrointestinal: constipation, flatus, passing stool; No no complaints, No pain, No blood, No decreased appetite, No diarrhea, No nausea, No vomiting, No other Genitourinary: dysuria, flank pain; No no complaints, No bleeding, No discharge, No hematuria, No other Musculoskeletal: back pain, bone/joint pain, neck pain; No no complaints, No restricted range of motion, No swelling, No other Skin: pruritis; No no complaints, No bruising, No erythema, No laceration, No rash, No skin lesions, No other Neurologic: dizziness, headache; No no complaints, No confusion, No focal-weakness, No syncope, No seizure, No other Endocrine: polyuria, polydypsia; No no complaints, No dry skin, No temp intolerance, No other Lymphatic: No no complaints, No adenopathy, No tender nodes, No lymphadema, No other Psychological: anxiety, depression; No no complaints, No nl mood/affect, No confusion, No suicidal, No other Exam/Review of Systems Vital Signs Vitals Vital Signs Date Temp Pulse Resp B/P (MAP) Pulse Ox O2 O2 Flow FiO2 Time Delivery Rate 06/03/18 100.5 115 18 105/58 96 20:46 (74) 06/02/18 Room Air 07:56 Intake and Output 06/02/18 06/02/18 06/03/18 1515:00 23:00 07:00 IntakeIntake Total 540 ml 500 ml 50 ml BalanceBalance 540 ml 500 ml 50 ml Exam Constitutional: alert, oriented, well developed, distress, frail, obese Psych: anxiety, depression Head: normocephalic, atraumatic; No lacerations, No hematomas, No other Eyes: EOMI, nl lids, PERRL; No nl conjunctiva, No nl sclera, No icteric, No fundi, disc, No other ENMT: No nl external ears & nose, No nl lips & teeth, No nl nasal mucosa & septum, No mucosa pink and moist, No intubated, No tympanic membranes, No other Neck: jvd, bruits, nuchal rigidity; No supple, No non-tender, No masses, No thyromegaly, No other Respiratory: clear to auscultation, normal air movement, congested cough, diminished breath sounds; No crackles/rales, No intercostal retraction, No labored breathing, No respirations, No tactile fremitus, No wheezing, No other Cardiovascular: regular rate and rhythm, nl pulses, jugular venous distention (JVD), systolic murmur; No bruits, No diastolic murmur, No edema, No gallop, No irregular rhythm, No murmurs/extra sounds, No rub, No S3, No S4, No other Gastrointestinal: soft, nl liver, spleen, bowel sounds; No non-tender, No ascites, No distended, No firm, No hepatomegaly, No mass, No rebound or guarding, No splenomegaly, No surgical scars, No tender, No other Genitourinary - Female: nl adnexae, nl external genitalia; No CMT, No CVA tenderness, No uterus, No other Musculoskeletal: nl gait and stance, joint tenderness, muscle tone, muscle weakness (Very weak with decreased muscular tone.); No nl extremities to inspection, No range of motion, No spine non-tender, No swelling, No other Extremities: No normal pulses, No calf tenderness, No cyanosis, No clubbing, No edema, No pitting pedal edema, No palpable cord, No tenderness, No other 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: 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, nl strength; No nl mental status, No nl speech, No confused, No DTR's symmetric, No focal weakness, No lethargic, No numbness, No reflexes, No unresponsive, No other Skin: diaphoresis (On and off.); No nl turgor, No rash or lesions, No ecchymosis, No laceration, No puncture, No other Lymph: No nl lymph nodes, No enlarged, No nontender, No other Medications Medications Current Medications Anastrozole (Arimidex) 1 mg DAILY PO Last administered on 06/03/18at 09:58; Admin Dose 1 MG; Start 04/25/18 at 19:00 Zolpidem Tartrate (Ambien) 10 mg HS PRN PO INSOMNIA; Start 04/25/18 at 23:30 Lorazepam (Ativan) 0.5 mg TID PRN PO ANXIETY Last administered on 06/02/18at 21:10; Admin Dose 0.5 MG; Start 04/25/18 at 23:30 Magnesium Hydroxide (Milk Of Mag) 30 ml DAILY PRN PO CONSTIPATION Last adminis tered on 06/02/18at 09:15; Admin Dose 30 ML; Start 04/27/18 at 21:00 Morphine Sulfate (morphine) 3 mg Q4H PRN IV SEVERE PAIN LEVEL 7-10 Last administered on 06/03/18at 17:46; Admin Dose 3 MG; Start 04/27/18 at 21:00 Enoxaparin Sodium (Lovenox) 40 mg DAILY SC Last administered on 05/27/18at 09:25; Admin Dose 40 MG; Start 05/24/18 at 09:00; Status Hold Acetaminophen (Tylenol Tab) 500 mg Q6H PRN PO MILD PAIN(1-3)OR ELEVATED TEMP Last administered on 06/02/18at 23:59; Admin Dose 500 MG; Start 05/30/18 at 20:30 Filgrastim (Neupogen) 300 mcg DAILY@17 SC Last administered on 06/03/18at 17:47; Admin Dose 300 MCG; Start 06/01/18 at 17:00; Stop 06/04/18 at 16:59 Vancomycin HCl (Vanco Iv Per Pharmacy) 1 ea PER PROTOCOL XX ; Start 06/01/18 at 23:30 Meropenem/Sodium Chloride 50 ml @ 100 mls/hr Q8 IVPB Last administered on 06/03/18at 14:02; Admin Dose 100 MLS/HR; Start 06/01/18 at 23:30 Cholecalciferol (Vitamin D) 4,000 unit DAILY PO Last administered on 06/03/18at 09:58; Admin Dose 4,000 UNIT; Start 06/02/18 at 09:00 Vancomycin HCl 750 mg/Sodium Chloride 150 ml @ 75 mls/hr Q8H IVPB Last administered on 06/03/18at 19:55; Admin Dose 75 MLS/HR; Start 06/03/18 at 11:00 Miscellaneous Information (*Rx Drug Level Order Reminder*) VANCO TR AT 1,000 ONCE ONCE XX ; Start 06/04/18 at 10:00; Stop 06/04/18 at 10:01 Oxycodone HCl (Oxycontin) 20 mg BID PO Last administered on 06/03/18at 21:29; Admin Dose 20 MG; Start 06/03/18 at 21:00 Amlodipine Besylate (Norvasc) 5 mg QAM PO ; Start 06/04/18 at 09:00 Results Result Diagram: 06/03/18 0001 05/31/18 1433 Results 24 hrs Laboratory Tests Test 06/03/18 00:01 White Blood Count 1.6 L Red Blood Count 2.48 L Hemoglobin 7.9 L Hematocrit 23.5 L Mean Corpuscular Volume 94.8 Mean Corpuscular Hemoglobin 31.9 Mean Corpuscular Hemoglobin Concent 33.6 Red Cell Distribution Width 15.3 H Platelet Count 89 L Mean Platelet Volume 9.7 Immature Granulocytes % 15.400 H Neutrophils % Segmented Neutrophils % (Manual) 36 L Band Neutrophils % (Manual) 26 H Lymphocytes % Lymphocytes % (Manual) 26 Monocytes % Monocytes % (Manual) 4 Eosinophils % Eosinophils % (Manual) 1 Basophils % Metamyelocytes % (manual) 4 H Myelocytes % (Manual) 1 H Promyelocytes % (Manual) 1 H Blast Cells % (Manual) 1.0 H Nucleated Red Blood Cells % 0.0 Immature Granulocytes # 0.240 H Neutrophils # Neutrophils # (Manual) 0.6 L Band Neutrophils # 0.4 Lymphocytes (Manual) 0.4 L Lymphocytes # Monocytes # Monocytes # (Manual) 0.0 L Eosinophils # Basophils # Metamyelocytes # 0.0 Myelocytes # 0.0 Promyelocytes # 0.0 Nucleated Red Blood Cells # Platelet Estimate DECREASED Polychromasia 3+ Anisocytosis 1+ Microcytosis 1+ Vancomycin Level Trough 22.0 *H RUSS JEROME MD Jun 03, 2018 22:57
--- NOTE | 2018-06-03 23:03 | CONS ---
Date/Time of Note Date/Time of Note DATE: 06/03/18 TIME: 23:02 Assessment/Plan Assessment/Plan Chief Complaint/Hosp Course NEUTROPENIC FEVER NEUPOGEN CULTURES ID ATB METASTATIC BREAST Cancer ( PRIMARY IS IN THE L BREAST ) with MULTIPLE BONY METS, PULMONARY METS SEVERE T-L SPINE PAIN WITH DIFFICULTIES TO AMBULATE MRI T-L SPINE- Diffuse osseous metastatic disease of the visualized thoracic spine (T10 - T12), the entire lumbar spine, sacrum, and bilateral iliac bones. Expansion of the posterior T9 vertebral body resulting in central canal stenosis with AP diameter measuring 8 mm. DC ORAL DECADRON CONT AI PAIN CONTROL MRI C - SPINE AND R HIP NOTED BONE SCAN -Multiple skeletal metastases in the axial and appendicular skeleton COMPLETED XRT PLAN CHEMO- TAXOTERE POST PORTACATH PLACEMENT R FEMORAL LESION Because of the extensive and widespread metastatic lesion involving both vestibular part and proximal femoral part of the right hip and even if any surgical procedure is considered, she will need a special custom made acetabular part and proximal femoral part, which can be done in a big [facility], probably by oncologic orthopedic surgeon. Even if surgery is considered and she needs to be transferred to a [facility] for the higher level of care including evaluation and care by oncology orthopedic surgeon, it is possible that because of the extensiveness of the metastatic lesions further surgical treatment may not be the recommended. PAIN CONT OXYCONTIN POOR IV ACCESS - post PORTACATH Obesity. Weight loss 60 pounds during the last 2 years by diet PMS. Myopia. Anemia chronic disease. Anxiety disorder. Posttraumatic stress disorder. Pain in the left forearm with a history of fracture of ulna and radius. 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 Date/Type/Reason Admit Date/Time Apr 25, 2018 at 14:37 Initial Consult Date 04/25/18 Requesting Provider: RUSS JEROME MD 24 HR Interval Summary Free Text/Dictation ALL NOTED Exam/Review of Systems Vital Signs Vitals Vital Signs Date Temp Pulse Resp B/P (MAP) Pulse Ox O2 O2 Flow FiO2 Time Delivery Rate 06/03/18 100.5 115 18 105/58 96 20:46 (74) 06/02/18 Room Air 07:56 Intake and Output 06/02/18 06/02/18 06/03/18 1515:00 23:00 07:00 IntakeIntake Total 540 ml 500 ml 50 ml BalanceBalance 540 ml 500 ml 50 ml Exam Constitutional: alert, oriented, well developed, distress, frail; No non-verbal, No other Psych: anxiety, depression; No no complaints, No nl mood/affect, No confusion, No suicidal, No other Head: normocephalic, atraumatic; No lacerations, No hematomas, No other Eyes: EOMI, nl lids, PERRL; No nl conjunctiva, No nl sclera, No icteric, No fundi, disc, No other ENMT: tympanic membranes; No nl external ears & nose, No nl lips & teeth, No nl nasal mucosa & septum, No mucosa pink and moist, No intubated, No other Neck: supple, non-tender, jvd, bruits; No masses, No thyromegaly, No nuchal rigidity, No other Respiratory: clear to auscultation, normal air movement, crackles/rales, diminished breath sounds, respirations; No congested cough, No intercostal retraction, No labored breathing, No tactile fremitus, No wheezing, No other Cardiovascular: regular rate and rhythm, bruits, jugular venous distention (JVD), systolic murmur; No nl pulses, No diastolic murmur, No edema, No gallop, No irregular rhythm, No murmurs/extra sounds, No rub, No S3, No S4, No other Gastrointestinal: soft, non-tender, bowel sounds, distended, hepatomegaly, other (Obesity with thick fatty layer of the anterior abdominal wall with no rebound.); No nl liver, spleen, No ascites, No firm, No mass, No rebound or guarding, No splenomegaly, No surgical scars, No tender Genitourinary - Female: nl adnexae, nl external genitalia, CVA tenderness; No CMT, No uterus, No other Musculoskeletal: joint tenderness, muscle tone, muscle weakness, spine non- tender (Severe tenderness of the intrascapular area lumbosacral area with great difficulty to get up to move. 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; No nl mental status, No nl speech, No nl strength, No confused, No DTR's symmetric, No focal weakness, No lethargic, No numbness, No reflexes, No unresponsive, No other Skin: nl turgor; No rash or lesions, No diaphoresis, No ecchymosis, No laceration, No puncture, No other Lymph: No nl lymph nodes, No enlarged, No nontender, No other BREAST- LARGE L BREAST MASS Medications Medications Current Medications Anastrozole (Arimidex) 1 mg DAILY PO Last administered on 06/03/18at 09:58; Admin Dose 1 MG; Start 04/25/18 at 19:00 Zolpidem Tartrate (Ambien) 10 mg HS PRN PO INSOMNIA; Start 04/25/18 at 23:30 Lorazepam (Ativan) 0.5 mg TID PRN PO ANXIETY Last administered on 06/02/18at 21:10; Admin Dose 0.5 MG; Start 04/25/18 at 23:30 Magnesium Hydroxide (Milk Of Mag) 30 ml DAILY PRN PO CONSTIPATION Last administered on 06/02/18at 09:15; Admin Dose 30 ML; Start 04/27/18 at 21:00 Morphine Sulfate (morphine) 3 mg Q4H PRN IV SEVERE PAIN LEVEL 7-10 Last administered on 06/03/18at 17:46; Admin Dose 3 MG; Start 04/27/18 at 21:00 Enoxaparin Sodium (Lovenox) 40 mg DAILY SC Last administered on 05/27/18at 09:25; Admin Dose 40 MG; Start 05/24/18 at 09:00; Status Hold Acetaminophen (Tylenol Tab) 500 mg Q6H PRN PO MILD PAIN(1-3)OR ELEVATED TEMP Last administered on 06/02/18at 23:59; Admin Dose 500 MG; Start 05/30/18 at 20:30 Filgrastim (Neupogen) 300 mcg DAILY@17 SC Last administered on 06/03/18at 17:47; Admin Dose 300 MCG; Start 06/01/18 at 17:00; Stop 06/04/18 at 16:59 Vancomycin HCl (Vanco Iv Per Pharmacy) 1 ea PER PROTOCOL XX ; Start 06/01/18 at 23:30 Meropenem/Sodium Chloride 50 ml @ 100 mls/hr Q8 IVPB Last administered on 06/03/18at 14:02; Admin Dose 100 MLS/HR; Start 06/01/18 at 23:30 Cholecalciferol (Vitamin D) 4,000 unit DAILY PO Last administered on 06/03/18at 09:58; Admin Dose 4,000 UNIT; Start 06/02/18 at 09:00 Vancomycin HCl 750 mg/Sodium Chloride 150 ml @ 75 mls/hr Q8H IVPB Last administered on 06/03/18at 19:55; Admin Dose 75 MLS/HR; Start 06/03/18 at 11:00 Miscellaneous Information (*Rx Drug Level Order Reminder*) VANCO TR AT 1,000 ONCE ONCE XX ; Start 06/04/18 at 10:00; Stop 06/04/18 at 10:01 Oxycodone HCl (Oxycontin) 20 mg BID PO Last administered on 06/03/18at 21:29; Admin Dose 20 MG; Start 06/03/18 at 21:00 Amlodipine Besylate (Norvasc) 5 mg QAM PO ; Start 06/04/18 at 09:00 Results Result Diagram: 06/03/18 0001 05/31/18 1433 Results 24 hrs Laboratory Tests Test 06/03/18 00:01 White Blood Count 1.6 L Red Blood Count 2.48 L Hemoglobin 7.9 L Hematocrit 23.5 L Mean Corpuscular Volume 94.8 Mean Corpuscular Hemoglobin 31.9 Mean Corpuscular Hemoglobin Concent 33.6 Red Cell Distribution Width 15.3 H Platelet Count 89 L Mean Platelet Volume 9.7 Immature Granulocytes % 15.400 H Neutrophils % Segmented Neutrophils % (Manual) 36 L Band Neutrophils % (Manual) 26 H Lymphocytes % Lymphocytes % (Manual) 26 Monocytes % Monocytes % (Manual) 4 Eosinophils % Eosinophils % (Manual) 1 Basophils % Metamyelocytes % (manual) 4 H Myelocytes % (Manual) 1 H Promyelocytes % (Manual) 1 H Blast Cells % (Manual) 1.0 H Nucleated Red Blood Cells % 0.0 Immature Granulocytes # 0.240 H Neutrophils # Neutrophils # (Manual) 0.6 L Band Neutrophils # 0.4 Lymphocytes (Manual) 0.4 L Lymphocytes # Monocytes # Monocytes # (Manual) 0.0 L Eosinophils # Basophils # Metamyelocytes # 0.0 Myelocytes # 0.0 Promyelocytes # 0.0 Nucleated Red Blood Cells # Platelet Estimate DECREASED Polychromasia 3+ Anisocytosis 1+ Microcytosis 1+ Vancomycin Level Trough 22.0 *H DES DUNAWAY MD Jun 03, 2018 23:03
[2018-06-04] MEDS: VANCOMYCIN 750 MG in SOD CHLORIDE 0.9% 150 ML IVPB SCH ×3 (03:25→18:58)
[2018-06-04 03:27] VITALS: BP 108/61; PULSE 95; RESP 17
[2018-06-04] MEDS: MEROPENEM 1 GM/50ML(PMX) 50 ML IVPB SCH ×3 (05:41→21:25)
[2018-06-04] MEDS: morphine 4 MG/ML VIAL IV PRN (05:41)
[2018-06-04 07:36] VITALS: BP 100/62; PULSE 92; RESP 18
--- NOTE | 2018-06-04 07:49 | PN ---
DATE: 06/03/2018 SUBJECTIVE: Followup on metastatic breast cancer, neutropenic fever. The patient is breathing comfo rtably at rest. Denies any chest pain or shortness of breath. No reported vomiting. The patient co ntinues to have fever, T max 101. No reported bleeding. PHYSICAL EXAMINATION: GENERAL: The patient is awake and alert. VITAL SIGNS: Temperature 98.2, pulse 92, respiration 18, blood pressure 105/60, T-max 101. HEENT: No eye discharge or redness. Conjunctivae normal. Oropharynx clear. NECK: Supple. No mass or thyromegaly. CHEST: Fairly clear. CARDIOVASCULAR: S1 and S2 normal, no murmur. ABDOMEN: Soft, nondistended, nontender. EXTREMITIES: No leg edema. NEUROLOGIC: The patient is awake and alert. LABORATORY DATA: WBC 1.6, hemoglobin 7.9, platelet 89. Sodium 134, potassium 4.2, BUN 11, creatinin e 0.3. IMPRESSION: 1. Metastatic breast cancer with the neutropenic fever. The patient is being followed by infectious disease. Continue vancomycin, meropenem and Neupogen. 2. Hypertension. The patient's blood pressure is in 100s and at times down to 98; therefore, we susie l decrease the dose of amlodipine to 5 mg once a day. 3. Continue pain control and Arimidex. Dictated By: SONIA TATE/KEANU Conf#: [id number] DID#: [id number]
[2018-06-04] MEDS: AMLODIPINE 5 MG TAB PO SCH (09:00)
[2018-06-04] MEDS: ANASTROZOLE 1 MG TAB PO SCH (09:00)
[2018-06-04] MEDS: oxyCODONE (CR) 20 MG TAB [oxyCONTIN] PO SCH ×2 (09:00→20:27)
[2018-06-04] MEDS: CHOLECALCIFEROL 2,000 UNIT CAP PO SCH (09:00)
[2018-06-04] MEDS: morphine LIQ (10 MG/5 ML) CUP PO PRN ×3 (10:29→21:25)
--- NOTE | 2018-06-04 11:57 | CONS ---
Date/Time of Note Date/Time of Note DATE: 06/04/18 TIME: 11:56 Assessment/Plan Assessment/Plan Chief Complaint/Hosp Course NEUTROPENIC FEVER NEUPOGEN CULTURES ID ATB METASTATIC BREAST Cancer ( PRIMARY IS IN THE L BREAST ) with MULTIPLE BONY METS, PULMONARY METS SEVERE T-L SPINE PAIN WITH DIFFICULTIES TO AMBULATE MRI T-L SPINE- Diffuse osseous metastatic disease of the visualized thoracic spine (T10 - T12), the entire lumbar spine, sacrum, and bilateral iliac bones. Expansion of the posterior T9 vertebral body resulting in central canal stenosis with AP diameter measuring 8 mm. DC ORAL DECADRON CONT AI PAIN CONTROL MRI C - SPINE AND R HIP NOTED BONE SCAN -Multiple skeletal metastases in the axial and appendicular skeleton COMPLETED XRT PLAN CHEMO- TAXOTERE POST PORTACATH PLACEMENT R FEMORAL LESION Because of the extensive and widespread metastatic lesion involving both vestibular part and proximal femoral part of the right hip and even if any surgical procedure is considered, she will need a special custom made acetabular part and proximal femoral part, which can be done in a big [facility] center, probably by oncologic orthopedic surgeon. Even if surgery is considered and she needs to be transferred to a [facility] for the higher level of care including evaluation and care by oncology orthopedic surgeon, it is possible that because of the extensiveness of the metastatic lesions further surgical treatment may not be the recommended. PAIN CONT OXYCONTIN POOR IV ACCESS - post PORTACATH Obesity. Weight loss 60 pounds during the last 2 years by diet PMS. Myopia. Anemia chronic disease. Anxiety disorder. Posttraumatic stress disorder. Pain in the left forearm with a history of fracture of ulna and radius. 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 Consultation Date/Type/Reason Admit Date/Time Apr 25, 2018 at 14:37 Initial Consult Date 04/25/18 Requesting Provider: RUSS JEROME MD 24 HR Interval Summary Free Text/Dictation all noted Exam/Review of Systems Vital Signs Vitals Vital Signs Date Temp Pulse Resp B/P (MAP) Pulse Ox O2 O2 Flow FiO2 Time Delivery Rate 06/04/18 98.7 92 18 100/62 96 07:36 (75) 06/02/18 Room Air 07:56 Intake and Output 06/03/18 06/03/18 06/04/18 1515:00 23:00 07:00 IntakeIntake Total 200 ml 1240 ml 250 ml OutputOutput Total 620 ml BalanceBalance 200 ml 620 ml 250 ml Exam Constitutional: alert, oriented, well developed, distress, frail; No non-verbal, No other Psych: anxiety, depression; No no complaints, No nl mood/affect, No confusion, No suicidal, No other Head: normocephalic, atraumatic; No lacerations, No hematomas, No other Eyes: EOMI, nl lids, PERRL; No nl conjunctiva, No nl sclera, No icteric, No fundi, disc, No other ENMT: tympanic membranes; No nl external ears & nose, No nl lips & teeth, No nl nasal mucosa & septum, No mucosa pink and moist, No intubated, No other Neck: supple, non-tender, jvd, bruits; No masses, No thyromegaly, No nuchal rigidity, No other Respiratory: clear to auscultation, normal air movement, crackles/rales, diminished breath sounds, respirations; No congested cough, No intercostal retraction, No labored breathing, No tactile fremitus, No wheezing, No other Cardiovascular: regular rate and rhythm, bruits, jugular venous distention (JVD), systolic murmur; No nl pulses, No diastolic murmur, No edema, No gallop, No irregular rhythm, No murmurs/extra sounds, No rub, No S3, No S4, No other Gastrointestinal: soft, non-tender, bowel sounds, distended, hepatomegaly, other (Obesity with thick fatty layer of the anterior abdominal wall with no rebound.); No nl liver, spleen, No ascites, No firm, No mass, No rebound or guarding, No splenomegaly, No surgical scars, No tender Genitourinary - Female: nl adnexae, nl external genitalia, CVA tenderness; No CMT, No uterus, No other Musculoskeletal: joint tenderness, muscle tone, muscle weakness, spine non- tender (Severe tenderness of the intrascapular area lumbosacral area with great difficulty to get up to move. 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; No nl mental status, No nl speech, No nl strength, No confused, No DTR's symmetric, No focal weakness, No lethargic, No numbness, No reflexes, No unresponsive, No other Skin: nl turgor; No rash or lesions, No diaphoresis, No ecchymosis, No laceration, No puncture, No other Lymph: No nl lymph nodes, No enlarged, No nontender, No other BREAST- LARGE L BREAST MASS Medications Medications Current Medications Anastrozole (Arimidex) 1 mg DAILY PO Last administered on 06/04/18at 09:00; Admin Dose 1 MG; Start 04/25/18 at 19:00 Zolpidem Tartrate (Ambien) 10 mg HS PRN PO INSOMNIA; Start 04/25/18 at 23:30 Lorazepam (Ativan) 0.5 mg TID PRN PO ANXIETY Last administered on 06/02/18at 21:10; Admin Dose 0.5 MG; Start 04/25/18 at 23:30 Magnesium Hydroxide (Milk Of Mag) 30 ml DAILY PRN PO CONSTIPATION Last admi nistered on 06/02/18at 09:15; Admin Dose 30 ML; Start 04/27/18 at 21:00 Enoxaparin Sodium (Lovenox) 40 mg DAILY SC Last administered on 05/27/18at 09:25; Admin Dose 40 MG; Start 05/24/18 at 09:00; Status Hold Acetaminophen (Tylenol Tab) 500 mg Q6H PRN PO MILD PAIN(1-3)OR ELEVATED TEMP Last administered on 06/02/18at 23:59; Admin Dose 500 MG; Start 05/30/18 at 20:30 Filgrastim (Neupogen) 300 mcg DAILY@17 SC Last administered on 06/03/18at 17:47; Admin Dose 300 MCG; Start 06/01/18 at 17:00; Stop 06/04/18 at 16:59 Vancomycin HCl (Vanco Iv Per Pharmacy) 1 ea PER PROTOCOL XX ; Start 06/01/18 at 23:30 Meropenem/Sodium Chloride 50 ml @ 100 mls/hr Q8 IVPB Last administered on 06/04/18at 05:41; Admin Dose 100 MLS/HR; Start 06/01/18 at 23:30 Cholecalciferol (Vitamin D) 4,000 unit DAILY PO Last administered on 06/04/18at 09:00; Admin Dose 4,000 UNIT; Start 06/02/18 at 09:00 Vancomycin HCl 750 mg/Sodium Chloride 150 ml @ 75 mls/hr Q8H IVPB Last administered on 06/04/18at 03:25; Admin Dose 75 MLS/HR; Start 06/03/18 at 11:00 Oxycodone HCl (Oxycontin) 20 mg BID PO Last administered on 06/04/18at 09:00; Admin Dose 20 MG; Start 06/03/18 at 21:00 Amlodipine Besylate (Norvasc) 5 mg QAM PO ; Start 06/04/18 at 09:00 Morphine Sulfate (morphine) 9 mg Q4H PRN PO SEVERE PAIN LEVEL 7-10 Last administered on 06/04/18at 10:29; Admin Dose 9 MG; Start 06/04/18 at 10:00 Results Result Diagram: 06/04/18 1006 06/04/18 1006 Results 24 hrs Laboratory Tests Test 06/04/18 10:06 White Blood Count 1.8 L Red Blood Count 2.66 L Hemoglobin 8.4 L Hematocrit 25.1 L Mean Corpuscular Volume 94.4 Mean Corpuscular Hemoglobin 31.6 Mean Corpuscular Hemoglobin Concent 33.5 Red Cell Distribution Width 15.5 H Platelet Count 123 #L Mean Platelet Volume 10.4 Immature Granulocytes % 8.600 H Neutrophils % Lymphocytes % Monocytes % Eosinophils % Basophils % Nucleated Red Blood Cells % 3.4 H Immature Granulocytes # 0.150 H Neutrophils # Lymphocytes # Monocytes # Eosinophils # Basophils # Nucleated Red Blood Cells # Sodium Level 131 L Potassium Level 3.6 Chloride Level 99 Carbon Dioxide Level 26 Anion Gap 6 Blood Urea Nitrogen 10 Creatinine 0.36 L Est Glomerular Filtrat Rate mL/min > 60 Glucose Level 112 Calcium Level 7.5 L Total Bilirubin 0.4 Direct Bilirubin 0.00 Indirect Bilirubin 0.4 Aspartate Amino Transf (AST/SGOT) 30 Alanine Aminotransferase (ALT/SGPT) 28 Alkaline Phosphatase 214 H Total Protein 4.8 L Albumin 2.4 L Globulin 2.40 Albumin/Globulin Ratio 1.00 Vancomycin Level Trough 10.4 DES DUNAWAY MD Jun 04, 2018 11:57
--- NOTE | 2018-06-04 12:25 | CONS ---
Date/Time of Note Date/Time of Note DATE: 06/04/18 TIME: 12:24 Assessment/Plan Assessment/Plan Chief Complaint/Hosp Course No acute changes patient feels better still had fever this morning currently afebrile WBC today 1.8 platelets 123 BUN 10 creatinine 0.36 Indwelling: R chest Port-A-Cath 05/29/18 Antimicrobials: Vancomycin, meropenem Physical examination: Obese well-developed middle-aged [place]-speaking woman who is alert in no distress. Head atraumatic normocephalic sclera nonicteric vehicle mucosa pink. Neck is supple chest rise symmetrical breath sounds diminished bases. Heart: S1-S2. Abdomen soft bowel sounds present extremities without cyanosis Assessment: 1. Neutropenic fevers 2. Metastatic breast cancer 3. Status post urinary tract infection 4. Obesity Plan: Patient remains stable, continue present care, antibiotics, Neupogen per oncology Consultation Date/Type/Reason Admit Date/Time Apr 25, 2018 at 14:37 Initial Consult Date 04/26/18 Type of Consult ID Requesting Provider: RUSS JEROME MD Exam/Review of Systems Vital Signs Vitals Vital Signs Date Temp Pulse Resp B/P (MAP) Pulse Ox O2 O2 Flow FiO2 Time Delivery Rate 06/04/18 98.7 92 18 100/62 96 07:36 (75) 06/02/18 Room Air 07:56 Intake and Output 06/03/18 06/03/18 06/04/18 1414:59 22:59 06:59 IntakeIntake Total 200 ml 1240 ml 250 ml OutputOutput Total 620 ml BalanceBalance 200 ml 620 ml 250 ml Medications Medications Current Medications Anastrozole (Arimidex) 1 mg DAILY PO Last administered on 06/04/18at 09:00; Admin Dose 1 MG; Start 04/25/18 at 19:00 Zolpidem Tartrate (Ambien) 10 mg HS PRN PO INSOMNIA; Start 04/25/18 at 23:30 Lorazepam (Ativan) 0.5 mg TID PRN PO ANXIETY Last administered on 06/02/18at 21:10; Admin Dose 0.5 MG; Start 04/25/18 at 23:30 Magnesium Hydroxide (Milk Of Mag) 30 ml DAILY PRN PO CONSTIPATION Last administered on 06/02/18at 09:15; Admin Dose 30 ML; Start 04/27/18 at 21:00 Enoxaparin Sodium (Lovenox) 40 mg DAILY SC Last administered on 05/27/18at 09:25; Admin Dose 40 MG; Start 05/24/18 at 09:00; Status Hold Acetaminophen (Tylenol Tab) 500 mg Q6H PRN PO MILD PAIN(1-3)OR ELEVATED TEMP Last administered on 06/02/18at 23:59; Admin Dose 500 MG; Start 05/30/18 at 20:30 Filgrastim (Neupogen) 300 mcg DAILY@17 SC Last administered on 06/03/18at 17:47; Admin Dose 300 MCG; Start 06/01/18 at 17:00; Stop 06/04/18 at 16:59 Vancomycin HCl (Vanco Iv Per Pharmacy) 1 ea PER PROTOCOL XX ; Start 06/01/18 at 23:30 Meropenem/Sodium Chloride 50 ml @ 100 mls/hr Q8 IVPB Last administered on 06/04/18at 05:41; Admin Dose 100 MLS/HR; Start 06/01/18 at 23:30 Cholecalciferol (Vitamin D) 4,000 unit DAILY PO Last administered on 06/04/18at 09:00; Admin Dose 4,000 UNIT; Start 06/02/18 at 09:00 Vancomycin HCl 750 mg/Sodium Chloride 150 ml @ 75 mls/hr Q8H IVPB Last administered on 06/04/18at 12:17; Admin Dose 75 MLS/HR; Start 06/03/18 at 11:00 Oxycodone HCl (Oxycontin) 20 mg BID PO Last administered on 06/04/18at 09:00; Admin Dose 20 MG; Start 06/03/18 at 21:00 Amlodipine Besylate (Norvasc) 5 mg QAM PO ; Start 06/04/18 at 09:00 Morphine Sulfate (morphine) 9 mg Q4H PRN PO SEVERE PAIN LEVEL 7-10 Last administered on 06/04/18at 10:29; Admin Dose 9 MG; Start 06/04/18 at 10:00 Results Result Diagram: 06/04/18 1006 06/04/18 1006 Results 24 hrs Laboratory Tests Test 06/04/18 10:06 White Blood Count 1.8 L Red Blood Count 2.66 L Hemoglobin 8.4 L Hematocrit 25.1 L Mean Corpuscular Volume 94.4 Mean Corpuscular Hemoglobin 31.6 Mean Corpuscular Hemoglobin Concent 33.5 Red Cell Distribution Width 15.5 H Platelet Count 123 #L Mean Platelet Volume 10.4 Immature Granulocytes % 8.600 H Neutrophils % Lymphocytes % Monocytes % Eosinophils % Basophils % Nucleated Red Blood Cells % 3.4 H Immature Granulocytes # 0.150 H Neutrophils # Lymphocytes # Monocytes # Eosinophils # Basophils # Nucleated Red Blood Cells # Sodium Level 131 L Potassium Level 3.6 Chloride Level 99 Carbon Dioxide Level 26 Anion Gap 6 Blood Urea Nitrogen 10 Creatinine 0.36 L Est Glomerular Filtrat Rate mL/min > 60 Glucose Level 112 Calcium Level 7.5 L Total Bilirubin 0.4 Direct Bilirubin 0.00 Indirect Bilirubin 0.4 Aspartate Amino Transf (AST/SGOT) 30 Alanine Aminotransferase (ALT/SGPT) 28 Alkaline Phosphatase 214 H Total Protein 4.8 L Albumin 2.4 L Globulin 2.40 Albumin/Globulin Ratio 1.00 Vancomycin Level Trough 10.4 YUAN ROMERO NP Jun 04, 2018 12:25
--- NOTE | 2018-06-04 13:50 | PN ---
Date/Time of Note Date/Time of Note DATE: 06/04/18 TIME: 13:46 Assessment/Plan VTE Prophylaxis Risk score (from Ns)>0 risk: 6 SCD applied (from Ns): Yes Pharmacological prophylaxis: LMWH Lines/Catheters IV Catheter [facility] (from [facility]): PORT-A-CATH Central line still needed: No Urinary Cath still in place: No Reason Cath still needed: urinary retention Assessment/Plan Assessment/Plan 1. Cancer of the left breast. Exact type at this time unknown.MULTIPLE BONY METS, PULMONARY METS 2. Severe pain in the interscapular and lumbar sacral area most probably metastatic lesion possible femoral fracture. pathologic fracture of T9 with 60% of loss of height. Neurosurgical consult planned. 3. Obesity. 4. Weight loss 60 pounds during the last 2 years by diet 5. PMS. 6. Myopia. 7. Anemia chronic disease. 8. Anxiety disorder. 9. Posttraumatic stress disorder. 10. Pain in the left forearm with a history of fracture of ulna and radius. 11. Tachycardia 12. Hypoxemia at night marginal improved after 2 L of nasal cannula oxygen. 13. Process at night. 14. 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 15. Pain syndrome. 16. Hyponatremia 17. Leukopenia 18. Neutropenia with occasional fever and chills. Hold discharge, until she is stable. 19. Hypoalbuminemia 20. Cont Hosp Indication/DC Plan: placement in snf. Subjective 24 Hr Interval Summary Free Text/Dictation Pain interscapular and lumbosacral area controlled by morphine sulfate IV which is lasting almost 6 hours. Had a fever and one episode of trouble chills today in the morning continues to be on 3 antibiotics. Decreased appetite.. Constitutional: improved, chills, diaphoresis, febrile, poor po, requiring IVF, requiring O2; No no complaints, No disoriented, No other Eyes: No no complaints, No pain, No discharge, No redness, No visual change, No other ENT: congestion; No no complaints, No bleeding, No pain, No discharge, No dysphagia, No sore throat, No other Respiratory: cough; No no complaints, No pain, No pleuritic pain, No shortness of breath, No sputum, No wheezing, No other Cardiovascular: chest pain, lightheadedness, orthopenea; No no complaints, No edema, No palpitations, No paroxysmal nocturnal dyspnea, No other Gastrointestinal: flatus, passing stool; No no complaints, No pain, No blood, No constipation, No decreased appetite, No diarrhea, No nausea, No vomiting, No other Genitourinary: flank pain; No no complaints, No bleeding, No dysuria, No discharge, No hematuria, No other Musculoskeletal: back pain, neck pain; No no complaints, No bone/joint pain, No restricted range of motion, No swelling, No other Skin: No no complaints, No bruising, No erythema, No laceration, No pruritis, No rash, No skin lesions, No other Neurologic: dizziness, headache; No no complaints, No confusion, No focal-weakness, No syncope, No seizure, No other Psychological: anxiety; No no complaints, No nl mood/affect, No confusion, No depression, No suicidal, No other Exam/Review of Systems Vital Signs Vitals Vital Signs Date Temp Pulse Resp B/P (MAP) Pulse Ox O2 O2 Flow FiO2 Time Delivery Rate 06/04/18 98.7 92 18 100/62 96 07:36 (75) 06/02/18 Room Air 07:56 Intake and Output 06/03/18 06/03/18 06/04/18 1414:59 22:59 06:59 IntakeIntake Total 200 ml 1240 ml 250 ml OutputOutput Total 620 ml BalanceBalance 200 ml 620 ml 250 ml Exam Constitutional: alert, oriented, well developed, distress, frail; No non-verbal, No obese, No other Psych: anxiety, depression; No no complaints, No nl mood/affect, No confusion, No suicidal, No other Head: normocephalic, atraumatic; No lacerations, No hematomas, No other Eyes: EOMI, nl lids, PERRL; No nl conjunctiva, No nl sclera, No icteric, No fundi, disc, No other ENMT: No nl external ears & nose, No nl lips & teeth, No nl nasal mucosa & septum, No mucosa pink and moist, No intubated, No tympanic membranes, No other Neck: jvd, bruits, nuchal rigidity; No supple, No non-tender, No masses, No thyromegaly, No other Respiratory: normal air movement, congested cough, diminished breath sounds; No clear to auscultation, No crackles/rales, No intercostal retraction, No labored breathing, No respirations, No tactile fremitus, No wheezing, No other Cardiovascular: regular rate and rhythm, nl pulses, systolic murmur; No bruits, No diastolic murmur, No edema, No gallop, No irregular rhythm, No jugular venous distention (JVD), No murmurs/extra sounds, No rub, No S3, No S4, No other Gastrointestinal: soft, nl liver, spleen, bowel sounds; No non-tender, No ascites, No distended, No firm, No hepatomegaly, No mass, No rebound or guarding, No splenomegaly, No surgical scars, No tender, No other Genitourinary - Female: nl adnexae, nl external genitalia; No CMT, No CVA tenderness, No uterus, No other Musculoskeletal: joint tenderness, muscle tone, muscle weakness; No nl extremities to inspection, No nl gait and stance, No range of motion, No spine non-tender, No swelling, No other Extremities: No normal pulses, No calf tenderness, No cyanosis, No clubbing, No edema, No pitting pedal edema, No palpable cord, No tenderness, No other 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: 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; No nl mental status, No nl speech, No nl strength, No confused, No DTR's symmetric, No focal weakness, No lethargic, No numbness, No reflexes, No unresponsive, No other Skin: nl turgor (Decrease.); No rash or lesions, No diaphoresis, No ecchymosis, No laceration, No puncture, No other Lymph: nl lymph nodes; No enlarged, No nontender, No other Medications Medications Current Medications Anastrozole (Arimidex) 1 mg DAILY PO Last administered on 06/04/18at 09:00; Admin Dose 1 MG; Start 04/25/18 at 19:00 Zolpidem Tartrate (Ambien) 10 mg HS PRN PO INSOMNIA; Start 04/25/18 at 23:30 Lorazepam (Ativan) 0.5 mg TID PRN PO ANXIETY Last administered on 06/02/18at 2 1:10; Admin Dose 0.5 MG; Start 04/25/18 at 23:30 Magnesium Hydroxide (Milk Of Mag) 30 ml DAILY PRN PO CONSTIPATION Last administered on 06/02/18at 09:15; Admin Dose 30 ML; Start 04/27/18 at 21:00 Enoxaparin Sodium (Lovenox) 40 mg DAILY SC Last administered on 05/27/18at 09:25; Admin Dose 40 MG; Start 05/24/18 at 09:00; Status Hold Acetaminophen (Tylenol Tab) 500 mg Q6H PRN PO MILD PAIN(1-3)OR ELEVATED TEMP Last administered on 06/02/18at 23:59; Admin Dose 500 MG; Start 05/30/18 at 20:30 Filgrastim (Neupogen) 300 mcg DAILY@17 SC Last administered on 06/03/18at 17:47; Admin Dose 300 MCG; Start 06/01/18 at 17:00; Stop 06/04/18 at 16:59 Vancomycin HCl (Vanco Iv Per Pharmacy) 1 ea PER PROTOCOL XX ; Start 06/01/18 at 23:30 Meropenem/Sodium Chloride 50 ml @ 100 mls/hr Q8 IVPB Last administered on 06/04/18at 05:41; Admin Dose 100 MLS/HR; Start 06/01/18 at 23:30 Cholecalciferol (Vitamin D) 4,000 unit DAILY PO Last administered on 06/04/18at 09:00; Admin Dose 4,000 UNIT; Start 06/02/18 at 09:00 Vancomycin HCl 750 mg/Sodium Chloride 150 ml @ 75 mls/hr Q8H IVPB Last administered on 06/04/18at 12:17; Admin Dose 75 MLS/HR; Start 06/03/18 at 11:00 Oxycodone HCl (Oxycontin) 20 mg BID PO Last administered on 06/04/18at 09:00; Admin Dose 20 MG; Start 06/03/18 at 21:00 Amlodipine Besylate (Norvasc) 5 mg QAM PO ; Start 06/04/18 at 09:00 Morphine Sulfate (morphine) 9 mg Q4H PRN PO SEVERE PAIN LEVEL 7-10 Last administered on 06/04/18at 10:29; Admin Dose 9 MG; Start 06/04/18 at 10:00 Results Result Diagram: 06/04/18 1006 06/04/18 1006 Results 24 hrs Laboratory Tests Test 06/04/18 10:06 White Blood Count 1.8 L Red Blood Count 2.66 L Hemoglobin 8.4 L Hematocrit 25.1 L Mean Corpuscular Volume 94.4 Mean Corpuscular Hemoglobin 31.6 Mean Corpuscular Hemoglobin Concent 33.5 Red Cell Distribution Width 15.5 H Platelet Count 123 #L Mean Platelet Volume 10.4 Immature Granulocytes % 8.600 H Neutrophils % Segmented Neutrophils % (Manual) 26 L Band Neutrophils % (Manual) 15 H Lymphocytes % Lymphocytes % (Manual) 32 Reactive Lymphocytes % (Manual) 3 H Monocytes % Monocytes % (Manual) 15 H Eosinophils % Eosinophils % (Manual) 1 Basophils % Metamyelocytes % (manual) 4 H Myelocytes % (Manual) 5 H Promyelocytes % (Manual) 1 H Blast Cells % (Manual) 1.0 H Nucleated Red Blood Cells % 5 H Immature Granulocytes # 0.150 H Neutrophils # Neutrophils # (Manual) 0.5 L Band Neutrophils # 0.2 Lymphocytes (Manual) 0.5 L Lymphocytes # Reactive Lymphocytes # 0.0 Monocytes # Monocytes # (Manual) 0.2 L Eosinophils # Basophils # Metamyelocytes # 0.0 Myelocytes # 0.0 Promyelocytes # 0.0 Nucleated Red Blood Cells # Platelet Estimate DECREASED Giant Platelets 3 H Polychromasia 3+ Poikilocytosis 1+ Anisocytosis 2+ Microcytosis 1+ Sodium Level 131 L Potassium Level 3.6 Chloride Level 99 Carbon Dioxide Level 26 Anion Gap 6 Blood Urea Nitrogen 10 Creatinine 0.36 L Est Glomerular Filtrat Rate mL/min > 60 Glucose Level 112 Calcium Level 7.5 L Total Bilirubin 0.4 Direct Bilirubin 0.00 Indirect Bilirubin 0.4 Aspartate Amino Transf (AST/SGOT) 30 Alanine Aminotransferase (ALT/SGPT) 28 Alkaline Phosphatase 214 H Total Protein 4.8 L Albumin 2.4 L Globulin 2.40 Albumin/Globulin Ratio 1.00 Vancomycin Level Trough 10.4 RUSS JEROME MD Jun 04, 2018 13:50
--- NOTE | 2018-06-04 19:39 | PN ---
Date/Time of Note Date/Time of Note DATE: 06/04/18 TIME: 19:39 Assessment/Plan VTE Prophylaxis Risk score (from Ns)>0 risk: 6 SCD applied (from Ns): Yes SCD contraindicated: other Pharmacological prophylaxis: other Pharm contraindication: other Lines/Catheters IV Catheter Type (from Nrs): PORT-A-CATH Central line still needed: Yes Urinary Cath still in place: No Assessment/Plan Assessment/Plan IMPRESSION: 1. Metastatic breast cancer with the neutropenic fever. The patient is being followed by infectious disease. Continue vancomycin, meropenem and Neupogen. 2. Hypertension. The patient's blood pressure is in 100s and at times down to 98; therefore, we will decrease the dose of amlodipine to 5 mg once a day. 3. Continue pain control and Arimidex. Exam/Review of Systems Vital Signs Vitals Vital Signs Date Temp Pulse Resp B/P (MAP) Pulse Ox O2 O2 Flow FiO2 Time Delivery Rate 06/04/18 98.7 92 18 100/62 96 07:36 (75) 06/02/18 Room Air 07:56 Intake and Output 06/03/18 06/03/18 06/04/18 1515:00 23:00 07:00 IntakeIntake Total 200 ml 1240 ml 250 ml OutputOutput Total 620 ml BalanceBalance 200 ml 620 ml 250 ml TOMMIE JAMES Jun 04, 2018 19:39
[2018-06-04 19:42] VITALS: BP 145/70; PULSE 78; RESP 18
[2018-06-04] MEDS: LORAZEPAM 0.5 MG TAB PO PRN (21:25)
[2018-06-05 01:18] VITALS: BP 119/73; PULSE 62; RESP 18
[2018-06-05] MEDS: morphine LIQ (10 MG/5 ML) CUP PO PRN ×5 (01:31→21:52)
[2018-06-05] MEDS: VANCOMYCIN 750 MG in SOD CHLORIDE 0.9% 150 ML IVPB SCH ×2 (03:07→10:26)
[2018-06-05] MEDS: MEROPENEM 1 GM/50ML(PMX) 50 ML IVPB SCH ×3 (05:41→21:52)
[2018-06-05 07:34] VITALS: BP 94/65; PULSE 101; RESP 20
[2018-06-05] MEDS: AMLODIPINE 5 MG TAB PO SCH (09:00)
[2018-06-05] MEDS: ANASTROZOLE 1 MG TAB PO SCH (09:04)
[2018-06-05] MEDS: CHOLECALCIFEROL 2,000 UNIT CAP PO SCH (09:05)
[2018-06-05] MEDS: oxyCODONE (CR) 20 MG TAB [oxyCONTIN] PO SCH ×2 (09:06→20:37)
--- NOTE | 2018-06-05 13:24 | CONS ---
Date/Time of Note Date/Time of Note DATE: 06/05/18 TIME: 13:23 Assessment/Plan Assessment/Plan Chief Complaint/Hosp Course No acute changes, patient is afebrile since yesterday, she is having problems with her Port-A-Cath Indwelling: R chest Port-A-Cath 05/29/18 Antimicrobials: Vancomycin, meropenem Physical examination: Obese well-developed middle-aged Chadian-speaking woman who is alert in no distress. Head atraumatic normocephalic sclera nonicteric vehicle mucosa pink. Neck is supple chest rise symmetrical breath sounds diminished bases. Heart: S1-S2. Abdomen soft bowel sounds present extremities without cyanosis Assessment: 1. Neutropenic fevers 2. Metastatic breast cancer 3. Status post urinary tract infection 4. Obesity Plan: Remains stable, continue present care, will keep on Merrem until neutropenia resolves, MARISEL Lopez Consultation Date/Type/Reason Admit Date/Time Apr 25, 2018 at 14:37 Initial Consult Date 04/26/18 Type of Consult ID Requesting Provider: RUSS JEROME MD Exam/Review of Systems Vital Signs Vitals Vital Signs Date Temp Pulse Resp B/P (MAP) Pulse Ox O2 O2 Flow FiO2 Time Delivery Rate 06/05/18 98.5 101 20 94/65 (75) 94 Nasal 2.0 07:34 Cannula Intake and Output 06/04/18 06/04/18 06/05/18 1515:00 23:00 07:00 IntakeIntake Total 150 ml 1270 ml 980 ml OutputOutput Total 252 ml 250 ml BalanceBalance 150 ml 1018 ml 730 ml YUAN ROMERO NP Jun 05, 2018 13:24
[2018-06-05 13:57] VITALS: BP 103/76; RESP 18
[2018-06-05] MEDS ORDERED: CEFAZOLIN 1 GM/50 ML (PMX) 50 ML IVPB ONE (17:00)
[2018-06-05] MEDS ORDERED: POLYMYXIN/BACITRACIN 1L IRRIG IRR ONE (17:00)
[2018-06-05 19:40] VITALS: BP 100/70; PULSE 106; RESP 16
[2018-06-05] MEDS: FILGRASTIM 480 MCG INJ SC SCH (20:41)
--- NOTE | 2018-06-05 21:53 | PN ---
Date/Time of Note Date/Time of Note DATE: 06/05/18 TIME: 21:52 Assessment/Plan VTE Prophylaxis Risk score (from Ns)>0 risk: 6 SCD applied (from Ns): Yes Pharmacological prophylaxis: LMWH Lines/Catheters IV Catheter Type (from [facility]): port-a-cath Central line still needed: No Urinary Cath still in place: No Reason Cath still needed: urinary retention Assessment/Plan Assessment/Plan 1. Cancer of the left breast. Exact type at this time unknown.MULTIPLE BONY METS, PULMONARY METS 2. Severe pain in the interscapular and lumbar sacral area most probably metastatic lesion possible femoral fracture. pathologic fracture of T9 with 60% of loss of height. Neurosurgical consult planned. 3. Obesity. 4. Weight loss 60 pounds during the last 2 years by diet 5. PMS. 6. Myopia. 7. Anemia chronic disease. 8. Anxiety disorder. 9. Posttraumatic stress disorder. 10. Pain in the left forearm with a history of fracture of ulna and radius. 11. Tachycardia 12. Hypoxemia at night marginal improved after 2 L of nasal cannula oxygen. 13. Process at night. 14. 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 15. Pain syndrome. 16. Hyponatremia 17. Leukopenia 18. Neutropenia with occasional fever and chills. Hold discharge, until she is stable. 19. Hypoalbuminemia 20. Cont Hosp Indication/DC Plan: placement in snf. Subjective 24 Hr Interval Summary Free Text/Dictation Occasional chills with sob. One time in am I had a fever. Constitutional: chills, febrile, poor po, requiring O2; No no complaints, No improved, No diaphoresis, No disoriented, No requiring IVF, No other Eyes: No no complaints, No pain, No discharge, No redness, No visual change, No other ENT: No no complaints, No bleeding, No pain, No congestion, No discharge, No dysphagia, No sore throat, No other Respiratory: shortness of breath; No no complaints, No pain, No cough, No pleuritic pain, No sputum, No wheezing, No other Cardiovascular: chest pain, orthopenea, palpitations; No no complaints, No edema, No lightheadedness, No paroxysmal nocturnal dyspnea, No other Gastrointestinal: constipation, decreased appetite; No no complaints, No pain, No blood, No diarrhea, No flatus, No nausea, No passing stool, No vomiting, No other Genitourinary: No no complaints, No bleeding, No dysuria, No discharge, No flank pain, No hematuria, No other Musculoskeletal: back pain, bone/joint pain, neck pain; No no complaints, No restricted range of motion, No swelling, No other Skin: No no complaints, No bruising, No erythema, No laceration, No pruritis, No rash, No skin lesions, No other Neurologic: dizziness, headache; No no complaints, No confusion, No focal-weakness, No syncope, No seizure, No other Endocrine: dry skin; No no complaints, No polyuria, No polydypsia, No temp intolerance, No other Exam/Review of Systems Vital Signs Vitals Vital Signs Date Temp Pulse Resp B/P (MAP) Pulse Ox O2 O2 Flow FiO2 Time Delivery Rate 06/05/18 99.9 106 16 100/70 94 Nasal 2.0 19:40 (80) Cannula Intake and Output 06/04/18 06/04/18 06/05/18 1515:00 23:00 07:00 IntakeIntake Total 150 ml 1270 ml 980 ml OutputOutput Total 252 ml 250 ml BalanceBalance 150 ml 1018 ml 730 ml Exam Constitutional: alert, oriented, well developed, distress, frail; No non-verbal, No obese, No other Psych: anxiety, depression; No no complaints, No nl mood/affect, No confusion, No suicidal, No other Head: normocephalic, atraumatic Eyes: EOMI, nl lids ENMT: No nl external ears & nose, No nl lips & teeth, No nl nasal mucosa & septum, No mucosa pink and moist, No intubated, No tympanic membranes, No other Neck: supple, non-tender; No jvd, No bruits, No masses, No thyromegaly, No nuchal rigidity, No other Respiratory: No clear to auscultation, No normal air movement, No congested cough, No crackles/rales, No diminished breath sounds, No intercostal retraction, No labored breathing, No respirations, No tactile fremitus, No wheezing, No other Cardiovascular: regular rate and rhythm, systolic murmur; No nl pulses, No bruits, No diastolic murmur, No edema, No gallop, No irregular rhythm, No jugular venous distention (JVD), No murmurs/extra sounds, No rub, No S3, No S4, No other Gastrointestinal: soft; No nl liver, spleen, No non-tender, No ascites, No bowel sounds, No distended, No firm, No hepatomegaly, No mass, No rebound or guarding, No splenomegaly, No surgical scars, No tender, No other Genitourinary - Female: nl adnexae, nl external genitalia, CVA tenderness; No CMT, No uterus, No other Musculoskeletal: nl extremities to inspection, joint tenderness, muscle tone; No nl gait and stance, No muscle weakness, No range of motion, No spine non- tender, No swelling, No other Extremities: No normal pulses, No calf tenderness, No cyanosis, No clubbing, No edema, No pitting pedal edema, No palpable cord, No tenderness, No other 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: PHOTOGRAPHY ASSISTANT 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, nl speech, nl strength, confused; No nl mental status, No DTR's symmetric, No focal weakness, No lethargic, No numbness, No reflexes, No unresponsive, No other Skin: rash or lesions; No nl turgor, No diaphoresis, No ecchymosis, No laceration, No puncture, No other Lymph: No nl lymph nodes, No enlarged, No nontender, No other PILRUSS BROWNE MD Jun 05, 2018 21:52
--- NOTE | 2018-06-05 23:55 | CONS ---
Date/Time of Note Date/Time of Note DATE: 06/05/18 TIME: 23:53 Assessment/Plan Assessment/Plan Chief Complaint/Hosp Course NEUTROPENIC FEVER NEUPOGEN CULTURES ID ATB MALFUNCTION OF PORTACATH DR BUSH ADJUSTMENT METASTATIC BREAST Cancer ( PRIMARY IS IN THE L BREAST ) with MULTIPLE BONY METS, PULMONARY METS SEVERE T-L SPINE PAIN WITH DIFFICULTIES TO AMBULATE MRI T-L SPINE- Diffuse osseous metastatic disease of the visualized thoracic spine (T10 - T12), the entire lumbar spine, sacrum, and bilateral iliac bones. Expansion of the posterior T9 vertebral body resulting in central canal stenosis with AP diameter measuring 8 mm. DC ORAL DECADRON CONT AI PAIN CONTROL MRI C - SPINE AND R HIP NOTED BONE SCAN -Multiple skeletal metastases in the axial and appendicular skeleton COMPLETED XRT PLAN CHEMO- TAXOTERE POST PORTACATH PLACEMENT R FEMORAL LESION Because of the extensive and widespread metastatic lesion involving both vestibular part and proximal femoral part of the right hip and even if any surgical procedure is considered, she will need a special custom made acetabular part and proximal femoral part, which can be done in a [facility] in [place], probably by oncologic orthopedic surgeon. Even if surgery is considered and she needs to be transferred to a [facility] in [place] for the higher level of care including evaluation and care by oncology orthopedic surgeon, it is possible that because of the extensiveness of the metastatic lesions further surgical treatment may not be the recommended. PAIN CONT OXYCONTIN POOR IV ACCESS - post PORTACATH Obesity. Weight loss 60 pounds during the last 2 years by diet PMS. Myopia. Anemia chronic disease. Anxiety disorder. Posttraumatic stress disorder. Pain in the left forearm with a history of fracture of ulna and radius. Tachycardia Incomplete data [employer]IAL [employer]UES [employer]IC[employer] Consultation Date/Type/Reason Admit Date/Time Apr 25, 2018 at 14:37 Initial Consult Date 04/25/18 Requesting Provider: RUSS JEROME MD 24 HR Interval Summary Free Text/Dictation ALL NOTED NAD Exam/Review of Systems Vital Signs Vitals Vital Signs Date Temp Pulse Resp B/P (MAP) Pulse Ox O2 O2 Flow FiO2 Time Delivery Rate 06/05/18 99.9 106 16 100/70 94 Nasal 2.0 19:40 (80) Cannula Intake and Output 06/04/18 06/04/18 06/05/18 1515:00 23:00 07:00 IntakeIntake Total 150 ml 1270 ml 980 ml OutputOutput Total 252 ml 250 ml BalanceBalance 150 ml 1018 ml 730 ml Exam Constitutional: alert, oriented, well developed, distress, frail; No non-verbal, No other Psych: anxiety, depression; No no complaints, No nl mood/affect, No confusion, No suicidal, No other Head: normocephalic, atraumatic; No lacerations, No hematomas, No other Eyes: EOMI, nl lids, PERRL; No nl conjunctiva, No nl sclera, No icteric, No fundi, disc, No other ENMT: tympanic membranes; No nl external ears & nose, No nl lips & teeth, No nl nasal mucosa & septum, No mucosa pink and moist, No intubated, No other Neck: supple, non-tender, jvd, bruits; No masses, No thyromegaly, No nuchal rigidity, No other Respiratory: clear to auscultation, normal air movement, crackles/rales, diminished breath sounds, respirations; No congested cough, No intercostal retraction, No labored breathing, No tactile fremitus, No wheezing, No other Cardiovascular: regular rate and rhythm, bruits, jugular venous distention (JVD), systolic murmur; No nl pulses, No diastolic murmur, No edema, No gallop, No irregular rhythm, No murmurs/extra sounds, No rub, No S3, No S4, No other Gastrointestinal: soft, non-tender, bowel sounds, distended, hepatomegaly, other (Obesity with thick fatty layer of the anterior abdominal wall with no rebound.); No nl liver, spleen, No ascites, No firm, No mass, No rebound or guarding, No splenomegaly, No surgical scars, No tender Genitourinary - Female: nl adnexae, nl external genitalia, CVA tenderness; No CMT, No uterus, No other Musculoskeletal: joint tenderness, muscle tone, muscle weakness, spine non- tender (Severe tenderness of the intrascapular area lumbosacral area with great difficulty to get up to move. 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: CONNIE CLEANER 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; No nl mental status, No nl speech, No nl strength, No confused, No DTR's symmetric, No focal weakness, No lethargic, No numbness, No reflexes, No unresponsive, No other Skin: nl turgor; No rash or lesions, No diaphoresis, No ecchymosis, No laceration, No puncture, No other Lymph: No nl lymph nodes, No enlarged, No nontender, No other BREAST- LARGE L BREAST MASS DES DUNAWAY MD Jun 05, 2018 23:55
[2018-06-06] MEDS: LORAZEPAM 0.5 MG TAB PO PRN ×2 (00:08→23:08)
[2018-06-06 01:08] VITALS: BP 97/64; PULSE 76; RESP 16
[2018-06-06] MEDS: MEROPENEM 1 GM/50ML(PMX) 50 ML IVPB SCH ×3 (06:00→21:48)
[2018-06-06] MEDS ORDERED: SOD CHLORIDE 0.9% 500 ML ONE (07:05)
[2018-06-06] MEDS ORDERED: FENTAnyl 50 MCG/ML VIAL ONE (07:05)
[2018-06-06] MEDS ORDERED: HEPARIN 1000 UNITS/ML 10 ML INJ ONE ×2 (07:05→07:44)
[2018-06-06] MEDS ORDERED: LIDOCAINE 1% (MDV) 20 ML INJ ONE (07:05)
[2018-06-06] MEDS ORDERED: MIDAZOLAM 1 MG/ML 2 ML INJ ONE (07:06)
--- NOTE | 2018-06-06 08:20 | HPN ---
Date/Time of Note Date/Time of Note DATE: 06/06/18 TIME: 08:20 Interval H&P Admission Note Pt. seen H&P reviewed: No system changes GIDEON BUSH MD Jun 06, 2018 08:20
[2018-06-06 08:24] VITALS: BP 93/63; PULSE 106; RESP 20
--- NOTE | 2018-06-06 08:28 | RADRPT ---
PROCEDURE: Fluoroscopic guided manipulation of right chest implanted port central venous catheter. CLINICAL INDICATION: History of left breast cancer. Venous access for chemotherapy. The existing c hest port is kinked and not functioning. TECHNIQUE: Informed consent was obtained. The procedure, risks, benefits, complications and alternatives were e xplained to the patient. Risks including bleeding, infection, and pneumothorax were explained. The p atient understood and was willing to proceed. A procedural pause was performed. The patient's name, d ate of , and procedure to be performed were verified. The central line was inserted with all el ements of maximal sterile barrier technique. All of the following were used: head covering, facial ma sk, sterile gown, sterile gloves, a large sterile sheet, hand hygiene, and 2% chlorhexidine for cuta neous antisepsis. The right neck and anterior/superior chest wall were prepped and draped in usual sterile fashion. Following the local injection of 1% lidocaine at the site of the existing fourth in the right anterio r chest wall, the port was manipulated with the skin remain in close. The port was pulled inferiorly and the kinked segment resolved. The port was then accessed with a 19-gauge Hurd needle and flushed with 20 ml of normal saline. There was good return of blood. Following this, the port was flushed wit h 1500 units of heparin in 1.5 ml. The needle was left in position. A dressing was applied. Specimens: None. Blood loss: None. Complications: None. Trench Trimmer Fine: Gasper - labor commissioner staff. Anesthesia: Local and moderate sedation. Graft/Implant: Right chest port. COMPARISON: Chest x-ray dated 05/29/2018. FINDINGS: Final radiographic images demonstrate the tip of the catheter in the upper right atrium. A total of 0.1 minutes of fluoroscopy time was used. 6 images of the chest were obtained with the image intensi fier. The final image demonstrates the Hurd needle within the port. The kink is no longer present. The tip of the catheter is in the right atrium. IMPRESSION: 1. Successful fluoroscopic guided manipulation of right chest power port. Previously noted kink in th e catheter was removed. RPTAT: QQ .Damon Mora MD, Date Time Electronically viewed and signed by .Damon Mora MD, on 06/06/2018 08:27 .R/
[2018-06-06] MEDS: AMLODIPINE 5 MG TAB PO SCH (09:00)
[2018-06-06] MEDS: oxyCODONE (CR) 20 MG TAB [oxyCONTIN] PO SCH ×2 (09:10→20:35)
[2018-06-06] MEDS: CHOLECALCIFEROL 2,000 UNIT CAP PO SCH (09:10)
[2018-06-06] MEDS: ANASTROZOLE 1 MG TAB PO SCH (09:11)
[2018-06-06] MEDS ORDERED: SOD CHLORIDE 0.9% 250 ML IV ONE (09:30)
[2018-06-06] MEDS: morphine LIQ (10 MG/5 ML) CUP PO PRN ×3 (09:57→21:49)
--- NOTE | 2018-06-06 12:02 | CONS ---
Date/Time of Note Date/Time of Note DATE: 06/06/18 TIME: 12:01 Assessment/Plan Assessment/Plan Chief Complaint/Hosp Course No acute changes, alert, feels better, no fevers WBC 4.4 platelets 130 BUN 10 creatinine 0.36 Indwelling: R chest Port-A-Cath 05/29/18 Antimicrobials: Meropenem Physical examination: Obese well-developed middle-aged Lao-speaking woman who is alert in no distress. Head atraumatic normocephalic sclera nonicteric vehicle mucosa pink. Neck is supple chest rise symmetrical breath sounds diminished bases. Heart: S1-S2. Abdomen soft bowel sounds present extremities without cyanosis Assessment: 1. Neutropenic fevers 2. Metastatic breast cancer 3. Status post urinary tract infection 4. Obesity Plan: Remains stable, continue present care, Neupogen per oncology Consultation Date/Type/Reason Admit Date/Time Apr 25, 2018 at 14:37 Initial Consult Date 04/26/18 Type of Consult ID Requesting Provider: RUSS JEROME MD Exam/Review of Systems Vital Signs Vitals Vital Signs Date Temp Pulse Resp B/P (MAP) Pulse Ox O2 O2 Flow FiO2 Time Delivery Rate 06/06/18 98.4 106 20 93/63 (73) 94 1.0 08:24 06/06/18 Room Air 01:08 Intake and Output 06/05/18 06/05/18 06/06/18 1515:00 23:00 07:00 IntakeIntake Total 250 ml 50 ml BalanceBalance 250 ml 50 ml YUAN ROMERO NP Jun 06, 2018 12:02
[2018-06-06 14:29] VITALS: BP 88/58; PULSE 101; RESP 20
[2018-06-06] MEDS: FILGRASTIM 480 MCG INJ SC SCH (17:07)
[2018-06-06 19:35] VITALS: BP 106/60; PULSE 108; RESP 20
--- NOTE | 2018-06-06 21:25 | PN ---
Date/Time of Note Date/Time of Note DATE: 06/06/18 TIME: 21:21 Assessment/Plan VTE Prophylaxis Risk score (from Nsg)>0 risk: 6 SCD applied (from Ns): No SCD contraindicated: low risk/ambulating Pharmacological prophylaxis: LMWH Lines/Catheters IV Catheter Type (from Nrsg): PORT A CATH Central line still needed: No Urinary Cath still in place: No Reason Cath still needed: urinary retention Assessment/Plan Assessment/Plan 1. Cancer of the left breast. Exact type at this time unknown.MULTIPLE BONY METS, PULMONARY METS 2. Severe pain in the interscapular and lumbar sacral area most probably metastatic lesion possible femoral fracture. pathologic fracture of T9 with 60% of loss of height. Neurosurgical consult planned. 3. Obesity. 4. Weight loss 60 pounds during the last 2 years by diet 5. PMS. 6. Myopia. 7. Anemia chronic disease. 8. Anxiety disorder. 9. Posttraumatic stress disorder. 10. Pain in the left forearm with a history of fracture of ulna and radius. 11. Tachycardia 12. Hypoxemia at night marginal improved after 2 L of nasal cannula oxygen. 13. Process at night. 14. 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 15. Pain syndrome. 16. Hyponatremia 17. Leukopenia 18. Neutropenia with occasional fever and chills. Hold discharge, until she is stable. 19. Hypoalbuminemia 20.Right sided cp after catheter incertion and correction. Subjective 24 Hr Interval Summary Free Text/Dictation Right sided cp after catheter incertion and correction. Constitutional: diaphoresis, poor po, requiring O2; No no complaints, No improved, No chills, No disoriented, No febrile, No requiring IVF, No other Eyes: No no complaints, No pain, No discharge, No redness, No visual change, No other ENT: congestion; No no complaints, No bleeding, No pain, No discharge, No dysphagia, No sore throat, No other Respiratory: cough, shortness of breath; No no complaints, No pain, No pleuritic pain, No sputum, No wheezing, No other Cardiovascular: chest pain, lightheadedness; No no complaints, No edema, No orthopenea, No palpitations, No paroxysmal nocturnal dyspnea, No other Gastrointestinal: constipation, decreased appetite; No no complaints, No pain, No blood, No diarrhea, No flatus, No nausea, No passing stool, No vomiting, No other Genitourinary: dysuria; No no complaints, No bleeding, No discharge, No flank pain, No hematuria, No other Musculoskeletal: back pain, bone/joint pain, neck pain; No no complaints, No restricted range of motion, No swelling, No other Skin: No no complaints, No bruising, No erythema, No laceration, No pruritis, No rash, No skin lesions, No other Neurologic: dizziness, headache; No no complaints, No confusion, No focal-weakness, No syncope, No seizure, No other Psychological: anxiety, confusion; No no complaints, No nl mood/affect, No depression, No suicidal, No other Exam/Review of Systems Vital Signs Vitals Vital Signs Date Temp Pulse Resp B/P (MAP) Pulse Ox O2 O2 Flow FiO2 Time Delivery Rate 06/06/18 100.1 108 20 106/60 92 Room Air 19:35 (75) 06/06/18 1.0 14:29 Intake and Output 06/05/18 06/05/18 06/06/18 1515:00 23:00 07:00 IntakeIntake Total 250 ml 50 ml BalanceBalance 250 ml 50 ml Exam Constitutional: alert, oriented, well developed, frail, obese; No non-verbal, No distress, No other Psych: anxiety; No no complaints, No nl mood/affect, No confusion, No depression, No suicidal, No other Head: normocephalic, atraumatic; No lacerations, No hematomas, No other Eyes: No nl conjunctiva, No EOMI, No nl lids, No nl sclera, No PERRL, No icteric, No fundi, disc, No other ENMT: No nl external ears & nose, No nl lips & teeth, No nl nasal mucosa & septum, No mucosa pink and moist, No intubated, No tympanic membranes, No other Neck: supple, jvd, bruits; No non-tender, No masses, No thyromegaly, No nuchal rigidity, No other Respiratory: No clear to auscultation, No normal air movement, No congested cough, No crackles/rales, No diminished breath sounds, No intercostal retraction , No labored breathing, No respirations, No tactile fremitus, No wheezing, No other Cardiovascular: regular rate and rhythm; No nl pulses, No bruits, No diastolic murmur, No edema, No gallop, No irregular rhythm, No jugular venous distention (JVD), No murmurs/extra sounds, No rub, No systolic murmur, No S3, No S4, No other Gastrointestinal: soft, bowel sounds; No nl liver, spleen, No non-tender, No ascites, No distended, No firm, No hepatomegaly, No mass, No rebound or guarding, No splenomegaly, No surgical scars, No tender, No other Genitourinary - Female: nl adnexae, nl external genitalia; No CMT, No CVA tenderness, No uterus, No other Musculoskeletal: joint tenderness, muscle tone, muscle weakness; No nl extremities to inspection, No nl gait and stance, No range of motion, No spine non-tender, No swelling, No other Extremities: No normal pulses, No calf tenderness, No cyanosis, No clubbing, No edema, No pitting pedal edema, No palpable cord, No tenderness, No other 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: ASSISTANT CUSTOMER SERVICE MANAGER 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; No nl mental status, No nl speech, No nl strength, No confused, No DTR's symmetric, No focal weakness, No lethargic, No numbness, No reflexes, No unresponsive, No other Skin: nl turgor, rash or lesions, diaphoresis; No ecchymosis, No laceration, No puncture, No other RUSS JEROME MD Jun 06, 2018 21:25
--- NOTE | 2018-06-06 23:31 | CONS ---
Date/Time of Note Date/Time of Note DATE: 06/06/18 TIME: 23:29 Assessment/Plan Assessment/Plan Chief Complaint/Hosp Course NEUTROPENIC FEVER neutropenia- improving on NEUPOGEN CULTURES ID ATB MALFUNCTION OF PORTACATH DR BUSH ADJUSTMENT METASTATIC BREAST Cancer ( PRIMARY IS IN THE L BREAST ) with MULTIPLE BONY METS, PULMONARY METS SEVERE T-L SPINE PAIN WITH DIFFICULTIES TO AMBULATE MRI T-L SPINE- Diffuse osseous metastatic disease of the visualized thoracic spine (T10 - T12), the entire lumbar spine, sacrum, and bilateral iliac bones. Expansion of the posterior T9 vertebral body resulting in central canal stenosis with AP diameter measuring 8 mm. DC ORAL DECADRON CONT AI PAIN CONTROL MRI C - SPINE AND R HIP NOTED BONE SCAN -Multiple skeletal metastases in the axial and append icular skeleton COMPLETED XRT PLAN CHEMO- TAXOTERE POST PORTACATH PLACEMENT R FEMORAL LESION Because of the extensive and widespread metastatic lesion involving both vestibular part and proximal femoral part of the right hip and even if any surgical procedure is considered, she will need a special custom made acetabular part and proximal femoral part, which can be done in a [place] [facility], probably by oncologic orthopedic surgeon. Even if surgery is considered and she needs to be transferred to a [facility] for the [facility] level of care including evaluation and care by oncology orthopedic surgeon, it is possible that because of the extensiveness of the metastatic lesions further surgical treatment may not be the recommended. PAIN CONT OXYCONTIN POOR IV ACCESS - post PORTACATH Obesity. Weight loss 60 pounds during the last 2 years by diet PMS. Myopia. Anemia chronic disease. Anxiety disorder. Posttraumatic stress disorder. Pain in the left forearm with a history of fracture of ulna and radius. 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 Consultation Date/Type/Reason Admit Date/Time Apr 25, 2018 at 14:37 Initial Consult Date 04/25/18 Requesting Provider: RUSS JEROME MD 24 HR Interval Summary Free Text/Dictation all noted nad d/w rn Exam/Review of Systems Vital Signs Vitals Vital Signs Date Temp Pulse Resp B/P (MAP) Pulse Ox O2 O2 Flow FiO2 Time Delivery Rate 06/06/18 100.1 108 20 106/60 92 Room Air 19:35 (75) 06/06/18 1.0 14:29 Intake and Output 06/05/18 06/05/1818 1515:00 23:00 07:00 IntakeIntake Total 250 ml 50 ml BalanceBalance 250 ml 50 ml Exam Constitutional: alert, oriented, well developed, distress, frail; No non-verbal, No other Psych: anxiety, depression; No no complaints, No nl mood/affect, No confusion, No suicidal, No other Head: normocephalic, atraumatic; No lacerations, No hematomas, No other Eyes: EOMI, nl lids, PERRL; No nl conjunctiva, No nl sclera, No icteric, No fundi, disc, No other ENMT: tympanic membranes; No nl external ears & nose, No nl lips & teeth, No nl nasal mucosa & septum, No mucosa pink and moist, No intubated, No other Neck: supple, non-tender, jvd, bruits; No masses, No thyromegaly, No nuchal rigidity, No other Respiratory: clear to auscultation, normal air movement, crackles/rales, diminished breath sounds, respirations; No congested cough, No intercostal retraction, No labored breathing, No tactile fremitus, No wheezing, No other Cardiovascular: regular rate and rhythm, bruits, jugular venous distention (JVD), systolic murmur; No nl pulses, No diastolic murmur, No edema, No gallop, No irregular rhythm, No murmurs/extra sounds, No rub, No S3, No S4, No other Gastrointestinal: soft, non-tender, bowel sounds, distended, hepatomegaly, other (Obesity with thick fatty layer of the anterior abdominal wall with no rebound.); No nl liver, spleen, No ascites, No firm, No mass, No rebound or guarding, No splenomegaly, No surgical scars, No tender Genitourinary - Female: nl adnexae, nl external genitalia, CVA tenderness; No CMT, No uterus, No other Musculoskeletal: joint tenderness, muscle tone, muscle weakness, spine non- tender (Severe tenderness of the intrascapular area lumbosacral area with great difficulty to get up to move. 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: CIAIO LUMITE INJECTOR 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; No nl mental status, No nl speech, No nl strength, No confused, No DTR's symmetric, No focal weakness, No lethargic, No numbness, No reflexes, No unresponsive, No other Skin: nl turgor; No rash or lesions, No diaphoresis, No ecchymosis, No laceration, No punctu re, No other Lymph: No nl lymph nodes, No enlarged, No nontender, No other BREAST- LARGE L BREAST MASS DES DUNAWAY MD Jun 06, 2018 23:31
[2018-06-07 02:19] VITALS: BP 108/61; PULSE 115; RESP 20
[2018-06-07] MEDS: MEROPENEM 1 GM/50ML(PMX) 50 ML IVPB SCH (05:56)
[2018-06-07 07:43] VITALS: BP 100/71; PULSE 104; RESP 16
[2018-06-07] MEDS: AMLODIPINE 5 MG TAB PO SCH (09:00)
[2018-06-07] MEDS: oxyCODONE (CR) 20 MG TAB [oxyCONTIN] PO SCH ×2 (09:41→20:07)
[2018-06-07] MEDS: CHOLECALCIFEROL 2,000 UNIT CAP PO SCH (09:42)
[2018-06-07] MEDS: SODIUM CHLORIDE 1 GM TAB PO SCH ×3 (09:43→20:07)
[2018-06-07] MEDS: ANASTROZOLE 1 MG TAB PO SCH (09:44)
[2018-06-07 15:04] VITALS: BP 101/64; PULSE 103; RESP 16
[2018-06-07] MEDS: morphine LIQ (10 MG/5 ML) CUP PO PRN ×2 (16:05→21:08)
--- NOTE | 2018-06-07 16:42 | CONS ---
Date/Time of Note Date/Time of Note DATE: 06/07/18 TIME: 16:40 Assessment/Plan Assessment/Plan Chief Complaint/Hosp Course Alert feels better no fevers overnight WBC 11.8 BUN 10 creatinine 0.36 Indwelling: R chest Port-A-Cath 05/29/18 Antimicrobials: Meropenem Physical examination: Obese well-developed middle-aged [place]-speaking woman who is alert in no distress. Head atraumatic normocephalic sclera nonicteric vehicle mucosa pink. Neck is supple chest rise symmetrical breath sounds diminished bases. Heart: S1-S2. Abdomen soft bowel sounds present extremities without cyanosis, left upper extremity with edema Assessment: 1. Status post neutropenic fevers 2. Metastatic breast cancer 3. Status post urinary tract infection 4. Obesity 5. Left upper extremity edema Plan: Remains stable, antibiotics discontinued in a.m., will order left upper extremity ultrasound, follow oncology recommendations Consultation Date/Type/Reason Admit Date/Time Apr 25, 2018 at 14:37 Initial Consult Date 04/26/18 Type of Consult ID Requesting Provider: RUSS JEROME MD Exam/Review of Systems Vital Signs Vitals Vital Signs Date Temp Pulse Resp B/P (MAP) Pulse Ox O2 O2 Flow FiO2 Time Delivery Rate 06/07/18 98.0 103 16 101/64 87 15:04 (76) 06/07/18 Nasal 2.0 02:19 Cannula Intake and Output 06/06/18 06/06/18 06/07/18 1515:00 23:00 07:00 IntakeIntake Total 650 ml 450 ml 450 ml BalanceBalance 650 ml 450 ml 450 ml YUAN ROMERO NP Jun 07, 2018 16:42
[2018-06-07] MEDS: HYDROCHLOROTHIAZIDE 12.5 MG CAP PO SCH (17:30)
--- NOTE | 2018-06-07 18:04 | CONS ---
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 Expansion of the posterior T9 vertebral body resulting in central canal stenosis with AP diameter measuring 8 mm. DC ORAL DECADRON CONT AI PAIN CONTROL MRI C - SPINE AND R HIP NOTED BONE SCAN -Multiple skeletal metastases in the axial and appendicular skeleton COMPLETED XRT PLAN CHEMO- TAXOTERE POST PORTACATH PLACEMENT R FEMORAL LESION Because of the extensive and widespread metastatic lesion involving both vestibular part and proximal femoral part of the right hip and even if any surgical procedure is considered, she will need a special custom made acetabular part and proximal femoral part, which can be done in a [facility], probably by oncologic orthopedic surgeon. Even if surgery is considered and she needs to be transferred to a [facility] for the higher level of care including evaluation and care by oncology orthopedic surgeon, it is possible that because of the extensiveness of the metastatic lesions further surgical treatment may not be the recommended. PAIN CONT OXYCONTIN POOR IV ACCESS - post PORTACATH Obesity. Weight loss 60 pounds during the last 2 years by diet PMS. Myopia. Anemia chronic disease. Anxiety disorder. Posttraumatic stress disorder. Pain in the left forearm with a history of fracture of ulna and radius. 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 Consultation Date/Type/Reason Admit Date/Time Apr 25, 2018 at 14:37 Initial Consult Date 04/25/18 Requesting Provider: RUSS JEROME MD 24 HR Interval Summary Free Text/Dictation ALL NOTED D/W RN WBC - RECOVERED Exam/Review of Systems Vital Signs Vitals Vital Signs Date Temp Pulse Resp B/P (MAP) Pulse Ox O2 O2 Flow FiO2 Time Delivery Rate 06/07/18 98.0 103 16 101/64 87 15:04 (76) 06/07/18 Nasal 2.0 02:19 Cannula Intake and Output 12/20/18 12/20/18 12/21/18 1515:00 23:00 07:00 IntakeIntake Total 650 ml 450 ml 450 ml BalanceBalance 650 ml 450 ml 450 ml Exam Constitutional: alert, oriented, well developed, distress, frail; No non-verbal, No other Psych: anxiety, depression; No no complaints, No nl mood/affect, No confusion, No suicidal, No other Head: normocephalic, atraumatic; No lacerations, No hematomas, No other Eyes: EOMI, nl lids, PERRL; No nl conjunctiva, No nl sclera, No icteric, No fundi, disc, No other ENMT: tympanic membranes; No nl external ears & nose, No nl lips & teeth, No nl nasal mucosa & septum, No mucosa pink and moist, No intubated, No other Neck: supple, non-tender, jvd, bruits; No masses, No thyromegaly, No nuchal rigidity, No other Respiratory: clear to auscultation, normal air movement, crackles/rales, diminished breath sounds, respirations; No congested cough, No intercostal retraction, No labored breathing, No tactile fremitus, No wheezing, No other Cardiovascular: regular rate and rhythm, bruits, jugular venous distention (JVD), systolic murmur; No nl pulses, No diastolic murmur, No edema, No gallop, No irregular rhythm, No murmurs/extra sounds, No rub, No S3, No S4, No other Gastrointestinal: soft, non-tender, bowel sounds, distended, hepatomegaly, other (Obesity with thick fatty layer of the anterior abdominal wall with no rebound.); No nl liver, spleen, No ascites, No firm, No mass, No rebound or guarding, No splenomegaly, No surgical scars, No tender Genitourinary - Female: nl adnexae, nl external genitalia, CVA tenderness; No CMT, No uterus, No other Musculoskeletal: joint tenderness, muscle tone, muscle weakness, spine non- tender (Severe tenderness of the intrascapular area lumbosacral area with great difficulty to get up to move. Movements are making bad pain worse.), other (Mildly deformed and swollen left forearm where the patient had a history of tr auma with a fracture.) Extremities: No normal pulses, No calf tenderness, No cyanosis, No clubbing, No edema, No pitting pedal edema, No palpable cord, No tenderness, No other + DIFFICULTIES TO AMBULATE 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: DELIVERY NURSE 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; No nl mental status, No nl speech, No nl strength, No confused, No DTR's symmetric, No focal weakness, No lethargic, No numbness, No reflexes, No unresponsive, No other Skin: nl turgor; No rash or lesions, No diaphoresis, No ecchymosis, No laceration, No puncture, No other Lymph: No nl lymph nodes, No enlarged, No nontender, No other BREAST- LARGE L BREAST MASS DES DUNAWAY MD Jun 07, 2018 18:02
[2018-06-07 19:56] VITALS: BP 104/62; PULSE 82; RESP 18
--- NOTE | 2018-06-07 21:06 | PN ---
Date/Time of Note Date/Time of Note DATE: 06/07/18 TIME: 21:01 Assessment/Plan VTE Prophylaxis Risk score (from Nsg)>0 risk: 7 SCD applied (from Ns): Yes SCD contraindicated: low risk/ambulating Pharmacological prophylaxis: LMWH Lines/Catheters IV Catheter Type (from Nrsg): port a cath Central line still needed: No Urinary Cath still in place: No Assessment/Plan Assessment/Plan 1. Cancer of the left breast. Exact type at this time unknown.MULTIPLE BONY METS, PULMONARY METS 2. Severe pain in the interscapular and lumbar sacral area most probably metastatic lesion possible femoral fracture. pathologic fracture of T9 with 60% of loss of height. Neurosurgical consult planned. 3. Obesity. 4. Weight loss 60 pounds during the last 2 years by diet 5. PMS. 6. Myopia. 7. Anemia chronic disease. 8. Anxiety disorder. 9. Posttraumatic stress disorder. 10. Pain in the left forearm with a history of fracture of ulna and radius. 11. Tachycardia 12. Hypoxemia at night marginal improved after 2 L of nasal cannula oxygen. 13. Process at night. 14. 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 15. Pain syndrome. 16. Hyponatremia 17. Leukopenia 18. Neutropenia with occasional fever and chills. Hold discharge, until she is stable. 19. Hypoalbuminemia 20.Right sided cp after catheter incertion and correction. Subjective Subjective 24 Hr Interval Summary Free Text/Dictation sob; worsening of the pain. Difficulty to get up from laying position to sitting. Constitutional: improved, poor po, requiring O2; No no complaints, No chills, No diaphoresis, No disoriented, No febrile, No requiring IVF, No other Eyes: No no complaints, No pain, No discharge, No redness, No visual change, No other ENT: No no complaints, No bleeding, No pain, No congestion, No discharge, No dysphagia, No sore throat, No other Respiratory: No no complaints, No pain, No cough, No pleuritic pain, No shortness of breath, No sputum, No wheezing, No other Cardiovascular: chest pain, orthopenea, palpitations; No no complaints, No edema, No lightheadedness, No paroxysmal nocturnal dyspnea, No other Gastrointestinal: constipation, decreased appetite; No no complaints, No pain, No blood, No diarrhea, No flatus, No nausea, No passing stool, No vomiting, No other Genitourinary: flank pain; No no complaints, No bleeding, No dysuria, No discharge, No hematuria, No other Musculoskeletal: back pain, bone/joint pain, neck pain; No no complaints, No restricted range of motion, No swelling, No other Skin: No no complaints, No bruising, No erythema, No laceration, No pruritis, No rash, No skin lesions, No other Neurologic: dizziness, headache; No no complaints, No confusion, No focal-weakness, No syncope, No seizure, No other Endocrine: No no complaints, No polyuria, No polydypsia, No dry skin, No temp intolerance, No other Exam/Review of Systems Vital Signs Vitals Vital Signs Date Temp Pulse Resp B/P (MAP) Pulse Ox O2 O2 Flow FiO2 Time Delivery Rate 06/07/18 98.7 82 18 104/62 97 Room Air 19:56 (76) 06/07/18 2.0 02:19 Intake and Output 06/06/18 06/06/18 06/07/18 1515:00 23:00 07:00 IntakeIntake Total 650 ml 450 ml 450 ml BalanceBalance 650 ml 450 ml 450 ml Exam Constitutional: alert, oriented, well developed, distress, frail, obese; No non-verbal, No other Psych: nl mood/affect, anxiety, confusion; No no complaints, No depression, No suicidal, No other Head: normocephalic, atraumatic; No lacerations, No hematomas, No other Eyes: EOMI, nl lids; No nl conjunctiva, No nl sclera, No PERRL, No icteric, No fundi, disc, No other ENMT: nl nasal mucosa & septum; No nl external ears & nose, No nl lips & teeth, No mucosa pink and moist, No intubated, No tympanic membranes, No other Neck: non-tender, bruits; No supple, No jvd, No masses, No thyromegaly, No nuchal rigidity, No other Respiratory: normal air movement, diminished breath sounds, other (painful right upper anterior chest.) Cardiovascular: regular rate and rhythm, nl pulses, bruits, systolic murmur; No diastolic murmur, No edema, No gallop, No irregular rhythm, No jugular venous distention (JVD), No murmurs/extra sounds, No rub, No S3, No S4, No other Gastrointestinal: soft, nl liver, spleen, non-tender, bowel sounds; No ascites, No distended, No firm, No hepatomegaly, No mass, No rebound or guarding, No splenomegaly, No surgical scars, No tender, No other Genitourinary - Female: No nl adnexae, No nl external genitalia, No CMT, No CVA tenderness, No uterus, No other Extremities: normal pulses; No calf tenderness, No cyanosis, No clubbing, No edema, No pitting pedal edema, No palpable cord, No tenderness, No other 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: CHEMICAL ENGINEERING INTERN 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, nl mental status, nl speech; No nl strength, No confused, No DTR's symmetric, No focal weakness, No lethargic, No numbness, No reflexes, No unresponsive, No other Skin: nl turgor; No rash or lesions, No diaphoresis, No ecchymosis, No laceration, No puncture, No other Lymph: No nl lymph nodes, No enlarged, No nontender, No other PILRUSS BROWNE MD Jun 07, 2018 21:06
[2018-06-07] MEDS: LORAZEPAM 0.5 MG TAB PO PRN (21:08)
[2018-06-08] MEDS: morphine LIQ (10 MG/5 ML) CUP PO PRN ×6 (01:11→20:36)
[2018-06-08 08:01] VITALS: BP 103/68; PULSE 102; RESP 18
[2018-06-08] MEDS: AMLODIPINE 5 MG TAB PO SCH (09:00)
[2018-06-08] MEDS: HYDROCHLOROTHIAZIDE 12.5 MG CAP PO SCH (09:00)
[2018-06-08] MEDS: oxyCODONE (CR) 20 MG TAB [oxyCONTIN] PO SCH ×2 (09:05→21:38)
[2018-06-08] MEDS: CHOLECALCIFEROL 2,000 UNIT CAP PO SCH (09:05)
[2018-06-08] MEDS: ANASTROZOLE 1 MG TAB PO SCH (09:05)
[2018-06-08] MEDS: SODIUM CHLORIDE 1 GM TAB PO SCH ×3 (09:07→21:37)
--- NOTE | 2018-06-08 09:25 | CONS ---
Date/Time of Note Date/Time of Note DATE: 06/08/18 TIME: 09:21 Assessment/Plan Assessment/Plan Chief Complaint/Hosp Course NEUTROPENIC FEVER- RESOLVED neutropenia- improving NEUPOGEN- DC CULTURES- NOTED ID F-UP - ATB PER ID, DC TODAY MALFUNCTION OF PORTACATH, NOT CORRECTED YET DR BUSH ADJUSTMENT METASTATIC BREAST Cancer ( PRIMARY IS IN THE L BREAST ) with MULTIPLE BONY METS, PULMONARY METS SEVERE T-L SPINE PAIN WITH DIFFICULTIES TO AMBULATE MRI T-L SPINE- Diffuse osseous metastatic disease of the visualized thoracic spine (T10 - T12), the entire lumbar spine, sacrum, and bilateral iliac bones. Expansion of the posterior T9 cleopatra tebral body resulting in central canal stenosis with AP diameter measuring 8 mm. DC ORAL DECADRON CONT AI PAIN CONTROL MRI C - SPINE AND R HIP NOTED BONE SCAN -Multiple skeletal metastases in the axial and appendicular skeleton COMPLETED XRT PLAN CHEMO- TAXOTERE POST PORTACATH PLACEMENT L BREAST- LARGE L BREAST MASS, DECREASED IN SIZE RUE LYMPHEDEMA DOPPLER NEG CT CHEST R FEMORAL LESION Because of the extensive and widespread metastatic lesion involving both vestibular part and proximal femoral part of the right hip and even if any surgical procedure is considered, she will need a special custom made acetabular part and proximal femoral part, which can be done in a big [facility], probably by oncologic orthopedic surgeon. Even if surgery is considered and she needs to be transferred to a [facility] for the higher level of care including evaluation and care by oncology orthopedic surgeon, it is possible that because of the extensiveness of the metastatic lesions further surgical treatment may not be the recommended. PAIN CONT OXYCONTIN POOR IV ACCESS - post PORTACATH Obesity. Weight loss 60 pounds during the last 2 years by diet PMS. Myopia. Anemia chronic disease. Anxiety disorder. Posttraumatic stress disorder. Pain in the left forearm with a history of fracture of ulna and radius. 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 Consultation Date/Type/Reason Admit Date/Time Apr 25, 2018 at 14:37 Initial Consult Date 04/25/18 Requesting Provider: RUSS JEROME MD 24 HR Interval Summary Free Text/Dictation ALL NOTED NAD RUE LYMPHEDEMA Exam/Review of Systems Vital Signs Vitals Vital Signs Date Temp Pulse Resp B/P (MAP) Pulse Ox O2 O2 Flow FiO2 Time Delivery Rate 06/08/18 98.7 102 18 103/68 88 08:01 (80) 06/07/18 Room Air 19:56 06/07/18 2.0 02:19 Intake and Output 06/07/18 06/07/18 06/08/18 1515:00 23:00 07:00 IntakeIntake Total 1000 ml 300 ml OutputOutput Total 250 ml 250 ml BalanceBalance 750 ml 50 ml Exam Constitutional: alert, oriented, well developed, distress, frail; No non-verbal, No other Psych: anxiety, depression; No no complaints, No nl mood/affect, No confusion, No suicidal, No other Head: normocephalic, atraumatic; No lacerations, No hematomas, No other Eyes: EOMI, nl lids, PERRL; No nl conjunctiva, No nl sclera, No icteric, No fundi, disc, No other ENMT: tympanic membranes; No nl external ears & nose, No nl lips & teeth, No nl nasal mucosa & septum, No mucosa pink and moist, No intubated, No other Neck: supple, non-tender, jvd, bruits; No masses, No thyromegaly, No nuchal rigidity, No other Respiratory: clear to auscultation, normal air movement, crackles/rales, diminished breath sounds, respirations; No congested cough, No intercostal retraction, No labored breathing, No tactile fremitus, No wheezing, No other Cardiovascular: regular rate and rhythm, bruits, jugular venous distention (JVD), systolic murmur; No nl pulses, No diastolic murmur, No edema, No gallop, No irregular rhythm, No murmurs/extra sounds, No rub, No S3, No S4, No other Gastrointestinal: soft, non-tender, bowel sounds, distended, hepatomegaly, other (Obesity with thick fatty layer of the anterior abdominal wall with no rebound.); No nl liver, spleen, No ascites, No firm, No mass, No rebound or guarding, No splenomegaly, No surgical scars, No tender Genitourinary - Female: nl adnexae, nl external genitalia, CVA tenderness; No CMT, No uterus, No other Musculoskeletal: joint tenderness, muscle tone, muscle weakness, spine non- tender (Severe tenderness of the intrascapular area lumbosacral area with great difficulty to get up to move. 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: RELAY MAN 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; No nl mental status, No nl speech, No nl strength, No confused, No DTR's symmetric, No focal weakness, No lethargic, No numbness, No reflexes, No unresponsive, No other Skin: nl turgor; No rash or lesions, No diaphoresis, No ecchymosis, No laceration, No puncture , No other Lymph: No nl lymph nodes, No enlarged, No nontender, No other L BREAST- LARGE L BREAST MASS, DECREASED IN SIZE RUE LYMPHEDEMA DES DUNAWAY MD Jun 08, 2018 09:25
[2018-06-08] MEDS ORDERED: SOD CHLORIDE 0.9% 100 ML ONE (11:00)
[2018-06-08] MEDS ORDERED: IOHEXOL 300MG/ML 150 ML BTL ONE (11:00)
[2018-06-08 15:25] VITALS: BP 111/84; PULSE 66; RESP 16
--- NOTE | 2018-06-08 16:40 | CONS ---
Date/Time of Note Date/Time of Note DATE: 06/08/18 TIME: 16:39 Assessment/Plan Assessment/Plan Chief Complaint/Hosp Course Alert feels good, no fevers Indwelling: R chest Port-A-Cath 05/29/18 Physical examination: Obese well-developed middle-aged [place] Islander-speaking woman who is alert in no distress. Head atraumatic normocephalic sclera nonicteric vehicle mucosa pink. Neck is supple chest rise symmetrical breath sounds dimin ished bases. Heart: S1-S2. Abdomen soft bowel sounds present extremities without cyanosis, left upper extremity with edema Assessment: 1. Status post neutropenic fevers 2. Metastatic breast cancer 3. Status post urinary tract infection 4. Obesity 5. Left upper extremity edema Plan: Remains stable, off antibiotics, left upper extremity ultrasound neg for DVT, follow oncology recommendations Consultation Date/Type/Reason Admit Date/Time Apr 25, 2018 at 14:37 Initial Consult Date 04/26/18 Type of Consult ID Requesting Provider: RUSS JEROME MD Exam/Review of Systems Vital Signs Vitals Vital Signs Date Temp Pulse Resp B/P (MAP) Pulse Ox O2 O2 Flow FiO2 Time Delivery Rate 06/08/18 97.9 66 16 111/84 97 15:25 (93) 06/07/18 Room Air 19:56 06/07/18 2.0 02:19 Intake and Output 06/07/18 06/07/18 06/08/18 1515:00 23:00 07:00 IntakeIntake Total 1000 ml 300 ml OutputOutput Total 250 ml 250 ml BalanceBalance 750 ml 50 ml YUAN ROMERO NP Jun 08, 2018 16:40
--- NOTE | 2018-06-08 17:46 | PN ---
Date/Time of Note Date/Time of Note DATE: 06/08/18 TIME: 17:43 Assessment/Plan VTE Prophylaxis Risk score (from Nsg)>0 risk: 5 SCD applied (from Nsg): Yes SCD contraindicated: low risk/ambulating Pharmacological prophylaxis: LMWH Lines/Catheters IV Catheter Type (from Nrsg): port-a-cath Central line still needed: Yes Urinary Cath still in place: No Reason Cath still needed: urinary retention Assessment/Plan Assessment/Plan 1. Cancer of the left breast. Exact type at this time unknown.MULTIPLE BONY METS, PULMONARY METS 2. Severe pain in the interscapular and lumbar sacral area most probably metastatic lesion possible femoral fracture. pathologic fracture of T9 with 60% of loss of height. Neurosurgical consult planned. 3. Obesity. 4. Weight loss 60 pounds during the last 2 years by diet 5. PMS. 6. Myopia. 7. Anemia chronic disease. 8. Anxiety disorder. 9. Posttraumatic stress disorder. 10. Pain in the left forearm with a history of fracture of ulna and radius. 11. Tachycardia 12. Hypoxemia at night marginal improved after 2 L of nasal cannula oxygen. 13. Process at night. 14. 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 15. Pain syndrome. 16. Hyponatremia 17. Leukopenia 18. Neutropenia with occasional fever and chills. Hold discharge, until she is stable. 19. Hypoalbuminemia 20.Right sided cp after catheter incertion and correction. Subjective 24 Hr Interval Summary Free Text/Dictation Weakness. Persistent back pain. Decreased right anterior chest pain. Constitutional: improved, poor po; No no complaints, No chills, No diaphoresis, No disoriented, No febrile, No requiring IVF, No requiring O2, No other Eyes: discharge, visual change; No no complaints, No pain, No redness, No other ENT: congestion, discharge, sore throat; No no complaints, No bleeding, No pain, No dysphagia, No other Respiratory: cough, pleuritic pain, shortness of breath; No no complaints, No pain, No sputum, No wheezing, No other Cardiovascular: chest pain, lightheadedness, orthopenea, paroxysmal nocturnal dyspnea; No no complaints, No edema, No palpitations, No other Gastrointestinal: constipation, decreased appetite; No no complaints, No pain, No blood, No diarrhea, No flatus, No nausea, No passing stool, No vomiting, No other Genitourinary: flank pain; No no complaints, No bleeding, No dysuria, No discharge, No hematuria, No other Musculoskeletal: back pain, bone/joint pain, neck pain; No no complaints, No restricted range of motion, No swelling, No other Skin: No no complaints, No bruising, No erythema, No laceration, No pruritis, No rash, No skin lesions, No other Neurologic: No no complaints, No confusion, No dizziness, No focal-weakness, No headache, No syncope, No seizure, No other Endocrine: dry skin; No no complaints, No polyuria, No polydypsia, No temp intolerance, No other Exam/Review of Systems Vital Signs Vitals Vital Signs Date Temp Pulse Resp B/P (MAP) Pulse Ox O2 O2 Flow FiO2 Time Delivery Rate 06/08/18 97.9 66 16 111/84 97 15:25 (93) 06/07/18 Room Air 19:56 06/07/18 2.0 02:19 Intake and Output 06/07/18 06/07/18 06/08/18 1414:59 22:59 06:59 IntakeIntake Total 1000 ml 300 ml OutputOutput Total 250 ml 250 ml BalanceBalance 750 ml 50 ml Exam Constitutional: alert, oriented, well developed, distress, frail, obese; No non-verbal, No other Psych: nl mood/affect, anxiety, depression; No no complaints, No confusion, No suicidal, No other Head: normocephalic, atraumatic; No lacerations, No hematomas, No other Eyes: EOMI, nl lids, PERRL; No nl conjunctiva, No nl sclera, No icteric, No fundi, disc, No other ENMT: nl lips & teeth, nl nasal mucosa & septum; No nl external ears & nose, No mucosa pink and moist, No intubated, No tympanic membranes, No other Neck: jvd, nuchal rigidity; No supple, No non-tender, No bruits, No masses, No thyromegaly, No other Respiratory: congested cough, crackles/rales, diminished breath sounds; No clear to auscultation, No normal air movement, No intercostal retraction, No labored breathing, No respirations, No tactile fremitus, No wheezing, No other Cardiovascular: regular rate and rhythm, nl pulses, bruits, systolic murmur; No diastolic murmur, No edema, No gallop, No irregular rhythm, No jugular venous distention (JVD), No murmurs/extra sounds, No rub, No S3, No S4, No other Gastrointestinal: nl liver, spleen, non-tender, distended; No soft, No ascites, No bowel sounds, No firm, No hepatomegaly, No mass, No rebound or guarding, No splenomegaly, No surgical scars, No tender, No other Genitourinary - Female: nl adnexae, nl external genitalia Musculoskeletal: joint tenderness, muscle tone, muscle weakness Extremities: No normal pulses, No calf tenderness, No cyanosis, No clubbing, No edema, No pitting pedal edema, No palpable cord, No tenderness, No other RUSS JEROME MD Jun 08, 2018 17:46
[2018-06-08 19:25] VITALS: BP 91/65; PULSE 104; RESP 20
[2018-06-08] MEDS: LORAZEPAM 0.5 MG TAB PO PRN (21:38)
[2018-06-09] MEDS: morphine LIQ (10 MG/5 ML) CUP PO PRN ×6 (02:19→22:36)
[2018-06-09] MEDS: MAGNESIUM HYDROXIDE 30ML CUP PO PRN ×2 (05:55→18:29)
[2018-06-09 07:23] VITALS: BP 102/57; PULSE 99; RESP 16
[2018-06-09] MEDS: ANASTROZOLE 1 MG TAB PO SCH (08:37)
[2018-06-09] MEDS: SODIUM CHLORIDE 1 GM TAB PO SCH ×3 (08:37→20:04)
[2018-06-09] MEDS: CHOLECALCIFEROL 2,000 UNIT CAP PO SCH (08:37)
[2018-06-09] MEDS: oxyCODONE (CR) 20 MG TAB [oxyCONTIN] PO SCH ×2 (08:38→20:04)
[2018-06-09] MEDS: AMLODIPINE 5 MG TAB PO SCH (08:39)
[2018-06-09] MEDS: HYDROCHLOROTHIAZIDE 12.5 MG CAP PO SCH (08:39)
--- NOTE | 2018-06-09 11:29 | PN ---
Date/Time of Note Date/Time of Note DATE: 06/09/18 TIME: 11:28 Assessment/Plan VTE Prophylaxis Risk score (from [facility] [place])>0 risk: 5 SCD applied (from [facility] [place]): Yes Pharmacological prophylaxis: LMWH Lines/Catheters IV Catheter Type (from [facility]): port-a-cath Urinary Cath still in place: No Assessment/Plan Hospital Course 1. Neutropenia and intermittent fever. The patient has been started on IV Rocephin, and urine culture and blood culture are underway. The patient did have an episode of Proteus mirabilis and Klebsiella pneumoniae urinary tract infection. Proteus was sensitive to Rocephin. Therefore, same antibiotic has been used. 2. The patient also has pancytopenia. The patient is being followed by Dr. Fernández. We will give Neupogen. 3. Hypertension. Blood pressure well controlled with Norvasc. 4. Metastatic cancer. Continue Arimidex. 5. Pelvic metastases. No surgical intervention at this time as per oncology. Subjective 24 Hr Interval Summary Free Text/Dictation Patient has no complaints Exam/Review of Systems Vital Signs Vitals Vital Signs Date Temp Pulse Resp B/P (MAP) Pulse Ox O2 O2 Flow FiO2 Time Delivery Rate 06/09/18 98.6 99 16 102/57 92 Room Air 07:23 (72) 06/07/18 2.0 02:19 Intake and Output 06/08/18 06/08/18 06/09/18 1515:00 23:00 07:00 IntakeIntake Total 750 ml 200 ml BalanceBalance 750 ml 200 ml Exam Constitutional: well developed Head: normocephalic, atraumatic Neck: supple Respiratory: clear to auscultation Cardiovascular: regular rate and rhythm Gastrointestinal: soft, non-tender Extremities: normal pulses LETITIA LOPEZ Jun 09, 2018 11:29
--- NOTE | 2018-06-09 12:51 | PN ---
Date/Time of Note Date/Time of Note DATE: 06/09/18 TIME: 12:48 Assessment/Plan VTE Prophylaxis Risk score (from Ns)>0 risk: 5 SCD applied (from Ns): Yes Pharmacological prophylaxis: LMWH Lines/Catheters IV Catheter Type (from [facility]): port-a-cath Central line still needed: No Urinary Cath still in place: No Reason Cath still needed: urinary retention Assessment/Plan Assessment/Plan 1. Cancer of the left breast. Exact type at this time unknown.MULTIPLE BONY METS, PULMONARY METS 2. Severe pain in the interscapular and lumbar sacral area most probably metastatic lesion possible femoral fracture. pathologic fracture of T9 with 60% of loss of height. Neurosurgical consult planned. 3. Obesity. 4. Weight loss 60 pounds during the last 2 years by diet 5. PMS. 6. Myopia. 7. Anemia chronic disease. 8. Anxiety disorder. 9. Posttraumatic stress disorder. 10. Pain in the left forearm with a history of fracture of ulna and radius. 11. Tachycardia 12. Hypoxemia at night marginal improved after 2 L of nasal cannula oxygen. 13. Process at night. 14. 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 15. Pain syndrome. 16. Hyponatremia 17. Leukopenia 18. Neutropenia with occasional fever and chills. Hold discharge, until she is stable. 19. Hypoalbuminemia 20.Right sided cp after catheter incertion and correction. Subjective 24 Hr Interval Summary Free Text/Dictation Right-sided chest pain persists. It is less intense than 2 days. I cannot make deep breathing. I had a superficial sleep last night. Movement is worsening my pain. Constitutional: improved, poor po, requiring IVF; No no complaints, No chills, No diaphoresis, No disoriented, No febrile, No requiring O2, No other Eyes: No no complaints, No pain, No discharge, No redness, No visual change, No other ENT: congestion; No no complaints, No bleeding, No pain, No discharge, No dysphagia, No sore throat, No other Respiratory: cough, pleuritic pain, shortness of breath; No no complaints, No pain, No sputum, No wheezing, No other Cardiovascular: chest pain, edema, lightheadedness, orthopenea; No no complaints, No palpitations, No paroxysmal nocturnal dyspnea, No other Gastrointestinal: constipation, decreased appetite, flatus, nausea, passing stool; No no complaints, No pain, No blood, No diarrhea, No vomiting, No other Genitourinary: dysuria, flank pain; No no complaints, No bleeding, No hematuria, No other Musculoskeletal: back pain, bone/joint pain, neck pain; No no complaints, No restricted range of motion, No swelling, No other Skin: bruising, erythema, laceration, pruritis; No no complaints, No rash, No skin lesions, No other Neurologic: headache; No no complaints, No dizziness, No focal-weakness, No syncope, No seizure, No other Endocrine: No no complaints, No polyuria, No polydypsia, No dry skin, No temp intolerance, No other Lymphatic: No no complaints, No adenopathy, No tender nodes, No lymphadema, No other Psychological: anxiety, depression; No no complaints, No nl mood/affect, No confusion, No suicidal, No other Exam/Review of Systems Vital Signs Vitals Vital Signs Date Temp Pulse Resp B/P (MAP) Pulse Ox O2 O2 Flow FiO2 Time Delivery Rate 06/09/18 98.6 99 16 102/57 92 Room Air 07:23 (72) 06/07/18 2.0 02:19 Intake and Output 06/08/18 06/08/18 06/09/18 1515:00 23:00 07:00 IntakeIntake Total 750 ml 200 ml BalanceBalance 750 ml 200 ml Exam Constitutional: alert, oriented, well developed, distress, frail, obese; No non-verbal, No other Psych: anxiety, confusion; No no complaints, No nl mood/affect, No depression, No suicidal, No other Head: normocephalic, atraumatic; No lacerations, No hematomas, No other Eyes: EOMI, nl lids, PERRL; No nl conjunctiva, No nl sclera, No icteric, No fundi, disc, No other ENMT: nl nasal mucosa & septum; No nl external ears & nose, No nl lips & teeth, No mucosa pink and moist, No intubated, No tympanic membranes, No other Neck: jvd, bruits, nuchal rigidity; No supple, No non-tender, No masses, No thyromegaly, No other Respiratory: diminished breath sounds, intercostal retraction; No clear to auscultation, No normal air movement, No congested cough, No crackles/rales, No labored breathing, No respirations, No tactile fremitus, No wheezing, No other Cardiovascular: regular rate and rhythm, bruits; No nl pulses, No diastolic murmur, No edema, No gallop, No irregular rhythm, No jugular venous distention (JVD), No murmurs/extra sounds, No rub, No systolic murmur, No S3, No S4, No other Gastrointestinal: soft, bowel sounds, distended; No nl liver, spleen, No non-tender, No ascites, No firm, No hepatomegaly, No mass, No rebound or guarding, No splenomegaly, No surgical scars, No tender, No other Musculoskeletal: joint tenderness, muscle weakness; No nl extremities to inspection, No nl gait and stance, No muscle tone, No range of motion, No spine non-tender, No swelling, No other Extremities: No normal pulses, No calf tenderness, No cyanosis, No clubbing, No edema, No pitting pedal edema, No palpable cord, No tenderness, No other 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
--- NOTE | 2018-06-09 14:13 | CONS ---
Date/Time of Note Date/Time of Note DATE: 06/09/18 TIME: 14:12 Assessment/Plan Assessment/Plan Chief Complaint/Hosp Course Alert, feels good, no fevers Indwelling: R chest Port-A-Cath 05/29/18 Physical examination: Obese well-developed middle-aged Belarusian-speaking woman who is alert in no distress. Head atraumatic normocephalic sclera nonicteric vehicle mucosa pink. Neck is supple chest rise symmetrical breath sounds dimi nished bases. Heart: S1-S2. Abdomen soft bowel sounds present extremities without cyanosis, left upper extremity with edema Assessment: 1. Status post neutropenic fevers 2. Metastatic breast cancer 3. Status post urinary tract infection 4. Obesity 5. Left upper extremity edema Plan: Remains stable, off antibiotics, follow oncology recommendations Consultation Date/Type/Reason Admit Date/Time Apr 25, 2018 at 14:37 Initial Consult Date 04/26/18 Type of Consult ID Requesting Provider: RUSS JEROME MD Exam/Review of Systems Vital Signs Vitals Vital Signs Date Temp Pulse Resp B/P (MAP) Pulse Ox O2 O2 Flow FiO2 Time Delivery Rate 06/09/18 98.6 99 16 102/57 92 Room Air 07:23 (72) 06/07/18 2.0 02:19 Intake and Output 06/08/18 06/08/18 06/09/18 1515:00 23:00 07:00 IntakeIntake Total 750 ml 200 ml BalanceBalance 750 ml 200 ml YUAN ROMERO NP Jun 09, 2018 14:13
[2018-06-09 14:38] VITALS: BP 129/63; PULSE 102; RESP 20
[2018-06-09 19:59] VITALS: BP 99/62; PULSE 107; RESP 18
--- NOTE | 2018-06-09 21:50 | CONS ---
Date/Time of Note Date/Time of Note DATE: 06/09/18 TIME: 21:50 Assessment/Plan Assessment/Plan Chief Complaint/Hosp Course NEUTROPENIC FEVER- RESOLVED neutropenia- improving NEUPOGEN- DC CULTURES- NOTED ID F-UP - ATB PER ID, DC TODAY MALFUNCTION OF PORTACATH, NOT CORRECTED YET DR BUSH ADJUSTMENT METASTATIC BREAST Cancer ( PRIMARY IS IN THE L BREAST ) with MULTIPLE BONY METS, PULMONARY METS SEVERE T-L SPINE PAIN WITH DIFFICULTIES TO AMBULATE MRI T-L SPINE- Diffuse osseous metastatic disease of the visualized thoracic spine (T10 - T12), the entire lumbar spine, sacrum, and bilateral iliac bones. Expansion of the posterior T9 cleopatra tebral body resulting in central canal stenosis with AP diameter measuring 8 mm. DC ORAL DECADRON CONT AI PAIN CONTROL MRI C - SPINE AND R HIP NOTED BONE SCAN -Multiple skeletal metastases in the axial and appendicular skeleton COMPLETED XRT PLAN CHEMO- TAXOTERE POST PORTACATH PLACEMENT L BREAST- LARGE L BREAST MASS, DECREASED IN SIZE RUE LYMPHEDEMA DOPPLER NEG CT CHEST R FEMORAL LESION Because of the extensive and widespread metastatic lesion involving both vestibular part and proximal femoral part of the right hip and even if any surgical procedure is considered, she will need a special custom made acetabular part and proximal femoral part, which can be done in a [facility], probably by oncologic orthopedic surgeon. Even if surgery is considered and she needs to be transferred to a [facility] for the higher level of care including evaluation and care by oncology orthopedic surgeon, it is possible that because of the extensiveness of the metastatic lesions further surgical treatment may not be the recommended. PAIN CONT OXYCONTIN POOR IV ACCESS - post PORTACATH Obesity. Weight loss 60 pounds during the last 2 years by diet PMS. Myopia. Anemia chronic disease. Anxiety disorder. Posttraumatic stress disorder. Pain in the left forearm with a history of fracture of ulna and radius. Tachycardia Incomplete data SOCIAL [employer]UES [employer] Consultation Date/Type/Reason Admit Date/Time Apr 25, 2018 at 14:37 Initial Consult Date 04/25/18 Requesting Provider: RUSS JEROME MD 24 HR Interval Summary Free Text/Dictation improving Exam/Review of Systems Vital Signs Vitals Vital Signs Date Temp Pulse Resp B/P (MAP) Pulse Ox O2 O2 Flow FiO2 Time Delivery Rate 06/09/18 98.7 107 18 99/62 (74) 90 19:59 12/23/18 Room Air 14:38 06/07/18 2.0 02:19 Intake and Output 06/08/18 06/08/18 06/09/18 1515:00 23:00 07:00 IntakeIntake Total 750 ml 200 ml BalanceBalance 750 ml 200 ml Exam Constitutional: alert, oriented, well developed, distress, frail; No non-verbal, No other Psych: anxiety, depression; No no complaints, No nl mood/affect, No confusion, No suicidal, No other Head: normocephalic, atraumatic; No lacerations, No hematomas, No other Eyes: EOMI, nl lids, PERRL; No nl conjunctiva, No nl sclera, No icteric, No fundi, disc, No other ENMT: tympanic membranes; No nl external ears & nose, No nl lips & teeth, No nl nasal mucosa & septum, No mucosa pink and moist, No intubated, No other Neck: supple, non-tender, jvd, bruits; No masses, No thyromegaly, No nuchal rigidity, No other Respiratory: clear to auscultation, normal air movement, crackles/rales, diminished breath sounds, respirations; No congested cough, No intercostal retraction, No labored breathing, No tactile fremitus, No wheezing, No other Cardiovascular: regular rate and rhythm, bruits, jugular venous distention (JVD), systolic murmur; No nl pulses, No diastolic murmur, No edema, No gallop, No irregular rhythm, No murmurs/extra sounds, No rub, No S3, No S4, No other Gastrointestinal: soft, non-tender, bowel sounds, distended, hepatomegaly, other (Obesity with thick fatty layer of the anterior abdominal wall with no rebound.); No nl liver, spleen, No ascites, No firm, No mass, No rebound or guarding, No splenomegaly, No surgical scars, No tender Genitourinary - Female: nl adnexae, nl external genitalia, CVA tenderness; No CMT, No uterus, No other Musculoskeletal: joint tenderness, muscle tone, muscle weakness, spine non- tender (Severe tenderness of the intrascapular area lumbosacral area with great difficulty to get up to move. 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
[2018-06-10 02:05] VITALS: BP 103/62; PULSE 104; RESP 18
[2018-06-10] MEDS: morphine LIQ (10 MG/5 ML) CUP PO PRN ×4 (02:35→19:33)
[2018-06-10 07:10] VITALS: BP 104/60; PULSE 104; RESP 18
[2018-06-10] MEDS: AMLODIPINE 5 MG TAB PO SCH (09:00)
--- NOTE | 2018-06-10 09:00 | PN ---
Date/Time of Note Date/Time of Note DATE: 06/10/18 TIME: 08:59 Assessment/Plan VTE Prophylaxis Risk score (from Nsg)>0 risk: 6 SCD applied (from Nsg): Yes SCD contraindicated: low risk/ambulating Pharmacological prophylaxis: LMWH Lines/Catheters IV Catheter Type (from Nrsg): PORT-A-CATH Central line still needed: Yes Urinary Cath still in place: No Reason Cath still needed: urinary retention Assessment/Plan Assessment/Plan 1. Cancer of the left breast. Exact type at this time unknown.MULTIPLE BONY METS, PULMONARY METS 2. Severe pain in the interscapular and lumbar sacral area most probably metastatic lesion possible femoral fracture. pathologic fracture of T9 with 60% of loss of height. Neurosurgical consult planned. 3. Obesity. 4. Weight loss 60 pounds during the last 2 years by diet 5. PMS. 6. Myopia. 7. Anemia chronic disease. 8. Anxiety disorder. 9. Posttraumatic stress disorder. 10. Pain in the left forearm with a history of fracture of ulna and radius. 11. Tachycardia 12. Hypoxemia at night marginal improved after 2 L of nasal cannula oxygen. 13. Process at night. 14. 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 15. Pain syndrome. 16. Hyponatremia 17. Leukopenia 18. Neutropenia with occasional fever and chills. Hold discharge, until she is stable. 19. Hypoalbuminemia 20.Right sided cp after catheter incertion and correction. Exam/Review of Systems Vital Signs Vitals Vital Signs Date Temp Pulse Resp B/P (MAP) Pulse Ox O2 O2 Flow FiO2 Time Delivery Rate 06/10/18 98.5 104 18 104/60 100 Room Air 07:10 (75) 06/07/18 2.0 02:19 Intake and Output 06/09/18 06/09/18 06/10/18 1515:00 23:00 07:00 IntakeIntake Total 240 ml BalanceBalance 240 ml RUSS JEROME MD Jun 10, 2018 09:00
[2018-06-10] MEDS: SODIUM CHLORIDE 1 GM TAB PO SCH ×3 (09:03→20:44)
[2018-06-10] MEDS: oxyCODONE (CR) 20 MG TAB [oxyCONTIN] PO SCH ×2 (09:03→20:44)
[2018-06-10] MEDS: CHOLECALCIFEROL 2,000 UNIT CAP PO SCH (09:03)
[2018-06-10] MEDS: ANASTROZOLE 1 MG TAB PO SCH (09:04)
[2018-06-10] MEDS: MAGNESIUM HYDROXIDE 30ML CUP PO PRN (09:07)
--- NOTE | 2018-06-10 13:04 | RADRPT ---
Echocardiogram Report Patient Name: LEANA VILLEDA Gender: Female Date: 1960 Study Date: 09-Jun-2018 Inspector Brake Lining: MIGUEL Location: I Height(Cm): 165 Weight(Kg): 81 BSA: 1.92 Ref. Physician: DES DUNAWAY Quality: Adequate Procedures: Transthoracic echocardiogram with complete 2D, M-Mode, and doppler examination. Indications: Hypotension. Tachycardia. 2D/M Mode Doppler Measurement Value Normal Ranges Measurement Value Normal Ranges LVIDd 2D 4.1 3.5 - 5.6 cm AV Peak Je 1.4 m/sec LVIDs 2D 3.0 2.1 - 4.1 cm AV Peak PG 7.0 mmHg LVPWd 2D 1.2 0.6 - 1.1 cm LVOT Peak Je 1.0 m/sec IVSd 2D 1.2 0.6 - 1.1 cm LVOT Peak PG 4.0 mmHg AoR Diam 2D 3.1 2.0 - 3.7 cm Med E` Je 0.2 m/sec LA/Ao 2D 1 0 - 1 TR Peak Je 2.5 m/sec LA Dimen 2D 3.7 2.3 - 4.0 cm TR Peak PG 24.0 mmHg PV Peak Je 1.1 m/sec PV Peak PG 5.0 mmHg RVSP 27.0 mmHg Findings Left Ventricle: Normal left ventricular systolic function. Normal left ventricular cavity size. Mild concentric left ventricular hypertrophy. Ejection fraction is visually estimated at 0 %. Abnormal Diastolic Function, patient tachycardia throughout exam. Right Ventricle: Normal right ventricular size. Normal right ventricular systolic function. Left Atrium: The left atrium is normal in size. Right Atrium: The right atrium is normal in size. Atrial Septum: Normal atrial septum. Mitral Valve: Normal appearance and function of the mitral valve with trace physiologic regurgitation. Aortic Valve: Normal trileaflet aortic valve structure. Trace aortic valve regurgitation. Tricuspid Valve: Normal appearance of the tricuspid valve. Estimated peak PA systolic pressure 27 mmHg. There is trace tricuspid regurgitation. Pulmonic Valve: Normal pulmonic valve appearance. There is trace pulmonic regurgitation. Pericardium: Normal pericardium with no significant pericardial effusion. Aorta: Normal aortic root. IVC: Normal size and normal respiratory collapse consistent with normal right atrial pressure. Pulmonary Artery: Normal pulmonary artery size. Conclusions Normal left ventricular systolic function. Normal left ventricular cavity size. Mild concentric left ventricular hypertrophy. Ejection fraction is visually estimated at 0 %. Abnormal Diastolic Function, patient tachycardia throughout exam. Normal appearance and function of the mitral valve with trace physiologic regurgitation. Normal trileaflet aortic valve structure. Trace aortic valve regurgitation. Normal appearance of the tricuspid valve. Estimated peak PA systolic pressure 27 mmHg. There is trace tricuspid regurgitation. Electronically Signed By: Kike Oliva 10-Jun-2018 13:04:33 -0800 Patient Name: LEANA VILLEDA Study Date: 09-Jun-2018 [id number]
--- NOTE | 2018-06-10 13:30 | CONS ---
DATE OF ADMISSION: 04/25/2018 DATE OF CONSULTATION: 06/10/2018 TYPE OF CONSULTATION: Cardiology. REFERRING PHYSICIAN: Tayla Fernández MD REASON FOR EVALUATION: Shortness of breath. HISTORY OF PRESENT ILLNESS: Ms. Foreman is a pleasant 58-year-old woman with newly diagnosed br east cancer stage IV, status post chemotherapy and chest radiation therapy, comes in hospital now for evaluation of shortness of breath. The patient is with some signs of fluid overload with shortness of breath and lower extremity edema. I am going to see patient in consultation. I think she has wit h some degree of fluid overload. She does not have any known coronary artery disease. She does not report any chest pain to me for this evaluation. I think for now initial investigations should inclu de obtaining a 2D echo to establish ejection fraction. The patient does not have an EKG and we are g oing to obtain an EKG as well. The patient does not report any chest pain for my evaluation right no w. We are going to obtain 12-lead EKG, 2D echo and continue gentle diuresis. PAST MEDICAL HISTORY: History of newly diagnosed breast cancer, history of chemotherapy and chest XR T. ALLERGIES: NO KNOWN DRUG ALLERGIES. SOCIAL HISTORY: The patient does not smoke, does not drink, does not do drugs. FAMILY HISTORY: Negative for sudden cardiac or premature coronary artery disease. MEDICATIONS: Reviewed. The patient will be initiated in gentle dose of diuresis. PHYSICAL EXAMINATION: VITAL SIGNS: Temperature 98.7, heart rate is in the 90s, blood pressure 115/65. GENERAL: She is an obese woman in no acute distress, alert and oriented x3, aware of her condition. HEENT: Head is normocephalic, atraumatic. Eyes are anicteric. NECK: Supple. JVD is 6 to 7 cm. There is no lymphadenopathy. HEART: Regular, soft holosystolic murmur. PMI is minimally displaced. There is no S3. LUNGS: Coarse at the base. ABDOMEN: Distended. Bowel sounds are present. There is no hepatosplenomegaly. GENITOURINARY: Intact. EXTREMITIES: Show no clubbing, cyanosis. There is 1+ pitting edema. DIAGNOSTIC DATA: No ECG is available for my review. We are going order one shortly. LABORATORY DATA: Troponin negative at 0.01. ASSESSMENT AND PLAN: 1. The patient is with heart failure, appears to be acute on chronic. The patient with recent chemo therapy and radiation therapy to the chest. We will obtain a 2D echo to establish ejection fraction. Continue gentle diuresis. 2. Hypertension. Blood pressure is well controlled. Continue to adjust medicines as needed. 3. Breast cancer. The patient has breast carcinoma with stage IV. Continue therapy per Dr. Brooke ward. 4. Anemia. Hemoglobin is fairly stable, but on the low side. No blood transfusion indicated now. Continue to monitor. 5. . EKG to follow. I would like to thank Dr. Fernández for referring this patient for my evaluation. Dictated By: EMILY NELSON MD ML/NTS Conf#: [id number] DID#: [id number] CC: RUSS JEROME MD; SONIA ODELL MD;*EndCC*
--- NOTE | 2018-06-10 15:15 | CONS ---
Date/Time of Note Date/Time of Note DATE: 06/10/18 TIME: 15:15 Assessment/Plan Assessment/Plan Chief Complaint/Hosp Course Alert, feels good, no fevers Indwelling: R chest Port-A-Cath 05/29/18 Physical examination: Obese well-developed middle-aged Rwandan-speaking woman who is alert in no distress. Head atraumatic normocephalic sclera nonicteric vehicle mucosa pink. Neck is supple chest rise symmetrical breath sounds dimi nished bases. Heart: S1-S2. Abdomen soft bowel sounds present extremities without cyanosis, left upper extremity with edema Assessment: 1. Status post neutropenic fevers 2. Metastatic breast cancer 3. Status post urinary tract infection 4. Obesity 5. Anasarca Plan: Remains stable, off antibiotics Consultation Date/Type/Reason Admit Date/Time Apr 25, 2018 at 14:37 Initial Consult Date 04/26/18 Type of Consult ID Requesting Provider: RUSS JEROME MD Exam/Review of Systems Vital Signs Vitals Vital Signs Date Temp Pulse Resp B/P (MAP) Pulse Ox O2 O2 Flow FiO2 Time Delivery Rate 06/10/18 98.5 104 18 104/60 100 Room Air 07:10 (75) 06/07/18 2.0 02:19 Intake and Output 06/09/18 06/09/18 06/10/18 1515:00 23:00 07:00 IntakeIntake Total 240 ml BalanceBalance 240 ml Medications Medications Current Medications Anastrozole (Arimidex) 1 mg DAILY PO Last administered on 06/10/18at 09:04; Admin Dose 1 MG; Start 04/25/18 at 19:00 Zolpidem Tartrate (Ambien) 10 mg HS PRN PO INSOMNIA; Start 04/25/18 at 23:30 Lorazepam (Ativan) 0.5 mg TID PRN PO ANXIETY Last administered on 06/08/18at 21:38; Admin Dose 0.5 MG; Start 04/25/18 at 23:30 Magnesium Hydroxide (Milk Of Mag) 30 ml DAILY PRN PO CONSTIPATION Last administered on 06/10/18at 09:07; Admin Dose 30 ML; Start 04/27/18 at 21:00 Enoxaparin Sodium (Lovenox) 40 mg DAILY SC Last administered on 05/27/18at 09:25; Admin Dose 40 MG; Start 05/24/18 at 09:00; Status Hold Acetaminophen (Tylenol Tab) 500 mg Q6H PRN PO MILD PAIN(1-3)OR ELEVATED TEMP [facility] st administered on 06/02/18at 23:59; Admin Dose 500 MG; Start 05/30/18 at 20:30 Cholecalciferol (Vitamin D) 4,000 unit DAILY PO Last administered on 06/10/18 09:03; Admin Dose 4,000 UNIT; Start 06/02/18 at 09:00 Oxycodone HCl (Oxycontin) 20 mg BID PO Last administered on 06/10/18 09:03; Admin Dose 20 MG; Start 06/03/18 at 21:00 Amlodipine Besylate (Norvasc) 5 mg QAM PO ; Start 06/04/18 at 09:00 Morphine Sulfate (morphine) 9 mg Q4H PRN PO SEVERE PAIN LEVEL 7-10 Last administered on 06/10/18 14:09; Admin Dose 9 MG; Start 06/04/18 at 10:00 Sodium Chloride (Nacl) 1 gm TID PO Last administered on 06/10/18 13:05; Admin Dose 1 GM; Start 06/07/18 at 09:00 YUAN ROMERO NP Jun 10, 2018 15:15
[2018-06-10 15:36] VITALS: BP 103/54; PULSE 92; RESP 18
--- NOTE | 2018-06-10 17:55 | CONS ---
Date/Time of Note Date/Time of Note DATE: 06/10/18 TIME: 17:52 Assessment/Plan Assessment/Plan Chief Complaint/Hosp Course NEUTROPENIC FEVER- RESOLVED neutropenia- improving NEUPOGEN- DC CULTURES- NOTED ID F-UP - ATB PER ID, DC TODAY MALFUNCTION OF PORTACATH, NOT CORRECTED YET DR RACHELLE HAMMER METASTATIC BREAST Cancer ( PRIMARY IS IN THE L BREAST ) with MULTIPLE BONY METS, PULMONARY METS, Extensive liver metastasis - ALL PRESENT AT BASELINE AT THE TIME OF INITIAL DX SEVERE T-L SPINE PAIN WITH DIFFICULTIES TO AMBULATE MRI T-L SPINE- Diffuse osseous metastatic disease of the visualized thoracic spine (T10 - T12), the entire lumbar spine, sacrum, and bilateral iliac bones. Expansion of the posterior T9 vertebral body resulting in central canal stenosis with AP diameter measuring 8 mm. DC ORAL DECADRON CONT AI PAIN CONTROL MRI C - SPINE AND R HIP NOTED BONE SCAN -Multiple skeletal metastases in the axial and appendicular skeleton COMPLETED XRT PLAN CHEMO- TAXOTERE POST PORTACATH PLACEMENT L BREAST- LARGE L BREAST MASS, DECREASED IN SIZE RUE LYMPHEDEMA DOPPLER NEG CT CHEST- NOTED R FEMORAL LESION Because of the extensive and widespread metastatic lesion involving both vestibular part and proximal femoral part of the right hip and even if any surgical procedure is considered, she will need a special custom made acetabular part and proximal femoral part, which can be done in a [facility], probably by oncologic orthopedic surgeon. Even if surgery is considered and she needs to be transferred to a [facility] for the higher level of care including evaluation and care by oncology orthopedic surgeon, it is possible that because of the extensiveness of the metastatic lesions further surgical treatment may not be the recommended. PAIN CONT OXYCONTIN FLUID OVERLOAD CARD EVAL POOR IV ACCESS - post PORTACATH Obesity. Weight loss 60 pounds during the last 2 years by diet PMS. Myopia. Anemia chronic disease. Anxiety disorder. Posttraumatic stress disorder. Pain in the left forearm with a history of fracture of ulna and radius. 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 Consultation Date/Type/Reason Admit Date/Time Apr 25, 2018 at 14:37 Initial Consult Date 04/25/18 Type of Consult [facility] Requesting Provider: RUSS JEROME MD 24 HR Interval Summary Free Text/Dictation ALL NOTED NAD Exam/Review of Systems Vital Signs Vitals Vital Signs Date Temp Pulse Resp B/P (MAP) Pulse Ox O2 O2 Flow FiO2 Time Delivery Rate 06/10/18 99.3 92 18 103/54 96 Room Air 15:36 (70) 06/07/18 2.0 02:19 Intake and Output 06/09/18 06/09/18 06/10/18 1515:00 23:00 07:00 IntakeIntake Total 240 ml BalanceBalance 240 ml Exam Constitutional: alert, oriented, well developed, distress, frail; No non-verbal, No other Psych: anxiety, depression; No no complaints, No nl mood/affect, No confusion, No suicidal, No other Head: normocephalic, atraumatic; No lacerations, No hematomas, No other Eyes: EOMI, nl lids, PERRL; No nl conjunctiva, No nl sclera, No icteric, No fundi, disc, No other ENMT: tympanic membranes; No nl external ears & nose, No nl lips & teeth, No nl nasal mucosa & septum, No mucosa pink and moist, No intubated, No other Neck: supple, non-tender, jvd, bruits; No masses, No thyromegaly, No nuchal rigidity, No other Respiratory: clear to auscultation, normal air movement, crackles/rales, diminished breath sounds, respirations; No congested cough, No intercostal retraction, No labored breathing, No tactile fremitus, No wheezing, No other Cardiovascular: regular rate and rhythm, bruits, jugular venous distention (JVD), systolic murmur; No nl pulses, No diastolic murmur, No edema, No gallop, No irregular rhythm, No murmurs/extra sounds, No rub, No S3, No S4, No other Gastrointestinal: soft, non-tender, bowel sounds, distended, hepatomegaly, other (Obesity with thick fatty layer of the anterior abdominal wall with no rebound.); No nl liver, spleen, No ascites, No firm, No mass, No rebound or guarding, No splenomegaly, No surgical scars, No tender Genitourinary - Female: nl adnexae, nl external genitalia, CVA tenderness; No CMT, No uterus, No other Musculoskeletal: joint tenderness, muscle tone, muscle weakness, spine non- tender (Severe tenderness of the intrascapular area lumbosacral area with great difficulty to get up to move. Movements are making bad pain worse.), other (Mildly deformed and swollen left forearm where the patient had a history of trauma with a fracture.) Extremities: No normal pulses, No calf tenderness, No cyanosis, No clubbing, 1- 2+ edema LE, + pitting pedal edema, No palpable cord, No tenderness, No oth er + DIFFICULTIES TO AMBULATE 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: WASTE EXAMINER 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; No nl mental status, No nl speech, No nl strength, No confused, No DTR's symmetric, No focal weakness, No lethargic, No numbness, No reflexes, No unresponsive, No other Skin: nl turgor; No rash or lesions, No diaphoresis, No ecchymosis, No laceration, No puncture, No other Lymph: No nl lymph nodes, No enlarged, No nontender, No other L BREAST- LARGE L BREAST MASS, DECREASED IN SIZE RUE LYMPHEDEMA Medications Medications Current Medications Anastrozole (Arimidex) 1 mg DAILY PO Last administered on 06/10/18at 09:04; Admin Dose 1 MG; Start 04/25/18 at 19:00 Zolpidem Tartrate (Ambien) 10 mg HS PRN PO INSOMNIA; Start 04/25/18 at 23:30 Lorazepam (Ativan) 0.5 mg TID PRN PO ANXIETY Last administered on 06/08/18at 21:38; Admin Dose 0.5 MG; Start 04/25/18 at 23:30 Magnesium Hydroxide (Milk Of Mag) 30 ml DAILY PRN PO CONSTIPATION Last administered on 06/10/18 09:07; Admin Dose 30 ML; Start 04/27/18 at 21:00 Enoxaparin Sodium (Lovenox) 40 mg DAILY SC Last administered on 05/27/18 09:25; Admin Dose 40 MG; Start 05/24/18 at 09:00; Status Hold Acetaminophen (Tylenol Tab) 500 mg Q6H PRN PO MILD PAIN(1-3)OR ELEVATED TEMP Last administered on 06/02/18at 23:59; Admin Dose 500 MG; Start 05/30/18 at 20:30 Cholecalciferol (Vitamin D) 4,000 unit DAILY PO Last administered on 06/10/18 09:03; Admin Dose 4,000 UNIT; Start 12/16/18 at 09:00 Oxycodone HCl (Oxycontin) 20 mg BID PO Last administered on 06/10/18at 09:03; Admin Dose 20 MG; Start 06/03/18 at 21:00 Amlodipine Besylate (Norvasc) 5 mg QAM PO ; Start 06/04/18 at 09:00 Morphine Sulfate (morphine) 9 mg Q4H PRN PO SEVERE PAIN LEVEL 7-10 Last administered on 06/10/18at 14:09; Admin Dose 9 MG; Start 06/04/18 at 10:00 Sodium Chloride (Nacl) 1 gm TID PO Last administered on 06/10/18at 13:05; Admin Dose 1 GM; Start 06/07/18 at 09:00 [place] [id number] Radiology Main Line: [phone] DIAGNOSTIC IMAGING REPORT Patient: LEANA VILLEDA : 1960 Age: 58 Sex: F MR #: [id number] DOS: 06/08/18 0000 Ordering MD: DES DUNAWAY MD Location: [facility] Room/Bed: [facility] PROCEDURE: CT Chest. CLINICAL INDICATION: Left breast cancer. Restaging lymphoma. TECHNIQUE: CT scan of the chest without and with contrast was performed on the Motally volumetric [address] scanner without contrast. 80 cc of Omnipaque-300 was administered. Coronal and sagittal reformatted images were obtained from the axial source images. The CTDI vol is 36.72 mGy and the DLP is 1352.42 mGy-cm. DICOM images are available. One or more of the following dose reduction techniques were used: Automated exposure control. Adjustment of the mA and/or kV according to patient size. Use of iterative reconstruction technique. COMPARISON: Chest x-ray from 05/29/2018 FINDINGS: A mild to moderate size right pleural effusion and moderate left pleural effusion is seen with consolidation in the lung bases which may represent compressive atelectasis. A 6 mm nodule seen on the subpleural margin of the left upper lobe on series 4 image number 28. Prominent lymph nodes are seen in the mediastinum with the largest seen in the right peritracheal space measuring 1.5 x 1.2 cm in size. The ascending aorta is ectatic measuring 3.7 cm in maximal diameter. A right chest wall port is seen with the tip in the hepatic IVC. Recommend repositioning. The heart size is borderline in size and is without evidence for pericardial thickening or effusion. Soft tissue mass in the left anterior chest wall is seen measuring 1.6 x 0.9 cm in size. Prominent lymph nodes in the left axilla are seen with the largest measuring 9 mm in largest diameter. Extends diffuse lytic lesions throughout the osseous structures are seen. Multiple compression fractures in the thoracic spine are seen. Multiple low attenuation liver lesions are seen with the largest seen in the right hepatic lobe measuring approximately 3 x 3 x 2 cm in size. Multiple gallstones are seen. The thyroid gland is multinodular and heterogeneous in attenuation. IMPRESSION: 1. Moderate left pleural effusion and mild to moderate pleural effusion with bibasilar consolidation which may represent compressive atelectasis versus infiltrates. Continued chest x-ray follow-up until resolution is suggested. 2. Extensive diffuse osseous metastatic disease with multiple compression fractures in the thoracic spine. 3. Extensive liver metastasis as noted above. 4. Soft tissue structure in the left anterior chest wall which may represent the patient's known primary breast cancer. Correlation with breast imaging studies is suggested. 5. Prominent mediastinal and left axillary lymph nodes which in the setting of a known left breast cancer may represent a few metastasis. The possibility of reactive lymph nodes should also be considered. 6. Cholelithiasis. RPTAT: HPNM Physician Niles Date Time Electronically viewed and signed by Physician Niles on 06/08/2018 15:31 / CC: DES DUNAWAY MD [id number] DES DUNAWAY MD Jun 10, 2018 17:55
[2018-06-10 20:40] VITALS: BP 107/67; PULSE 125; RESP 20
[2018-06-11] MEDS: morphine LIQ (10 MG/5 ML) CUP PO PRN ×5 (00:08→22:12)
--- NOTE | 2018-06-11 07:11 | CONS ---
Date/Time of Note Date/Time of Note DATE: 06/11/18 TIME: 07:11 Assessment/Plan Assessment/Plan Chief Complaint/Hosp Course NEUTROPENIC FEVER- RESOLVED neutropenia- improving NEUPOGEN- DC CULTURES- NOTED post ATB MALFUNCTION OF PORTACATH, CORRECTED DR BUSH ADJUSTMENT METASTATIC BREAST Cancer ( PRIMARY IS IN THE L BREAST ) with MULTIPLE BONY METS, PULMONARY METS, Extensive liver metastasis - ALL PRESENT AT BASELINE AT THE TIME OF INITIAL DX SEVERE T-L SPINE PAIN WITH DIFFICULTIES TO AMBULATE MRI T-L SPINE- Diffuse osseous metastatic disease of the visualized thoracic spine (T10 - T12), the entire lumbar spine, sacrum, and bilateral iliac bones. Expansion of the posterior T9 vertebral body resulting in central canal stenosis with AP diameter measuring 8 mm. DC ORAL DECADRON CONT AI PAIN CONTROL MRI C - SPINE AND R HIP NOTED BONE SCAN -Multiple skeletal metastases in the axial and appendicular skeleton COMPLETED XRT PLAN CHEMO- TAXOTERE POST PORTACATH PLACEMENT L BREAST- LARGE L BREAST MASS, DECREASED IN SIZE LUE LYMPHEDEMA DOPPLER NEG CT CHEST- NOTED LLE EDEMA CHECK DOPPLER CONT LOVENOX R FEMORAL LESION Because of the extensive and widespread metastatic lesion involving both vestibular part and proximal femoral part of the right hip and even if any surgical procedure is considered, she will need a special custom made acetabular part and proximal femoral part, which can be done in a [facility], probably by oncologic orthopedic surgeon. Even if surgery is considered and she needs to be transferred to a [facility] center for the higher level of care including evaluation and care by oncology orthopedic surgeon, it is possible that because of the extensiveness of the metastatic lesions further surgical treatment may not be the recommended. PAIN CONT OXYCONTIN FLUID OVERLOAD CARD EVAL POOR IV ACCESS - post PORTACATH Obesity. Weight loss 60 pounds during the last 2 years by diet PMS. Myopia. Anemia chronic disease. Anxiety disorder. Posttraumatic stress disorder. Pain in the left forearm with a history of fracture of ulna and radius. 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 OK TO SNF- D/W DR WHEAT Consultation Date/Type/Reason Admit Date/Time Apr 25, 2018 at 14:37 Initial Consult Date 04/25/18 Type of Consult [facility] Requesting Provider: RUSS JEROME MD 24 HR Interval Summary Free Text/Dictation ALL NOTED nad post chemo Exam/Review of Systems Vital Signs Vitals Vital Signs Date Temp Pulse Resp B/P (MAP) Pulse Ox O2 O2 Flow FiO2 Time Delivery Rate 06/11/18 99.6 05:12 06/10/18 125 20 107/67 95 20:40 (80) 06/10/18 Room Air 15:36 Intake and Output 06/10/18 06/10/18 06/11/18 1414:59 22:59 06:59 IntakeIntake Total 1100 ml 200 ml BalanceBalance 1100 ml 200 ml Exam Constitutional: alert, oriented, well developed, distress, frail; No non-verbal, No other Psych: anxiety, depression; No no complaints, No nl mood/affect, No confusion, No suicidal, No other Head: normocephalic, atraumatic; No lacerations, No hematomas, No other Eyes: EOMI, nl lids, PERRL; No nl conjunctiva, No nl sclera, No icteric, No fundi, disc, No other ENMT: tympanic membranes; No nl external ears & nose, No nl lips & teeth, No nl nasal mucosa & septum, No mucosa pink and moist, No intubated, No other Neck: supple, non-tender, jvd, bruits; No masses, No thyromegaly, No nuchal rigidity, No other Respiratory: clear to auscultation, normal air movement, crackles/rales, diminished breath sounds, respirations; No congested cough, No intercostal retraction, No labored breathing, No tactile fremitus, No wheezing, No other Cardiovascular: regular rate and rhythm, bruits, jugular venous distention (JVD), systolic murmur; No nl pulses, No diastolic murmur, No edema, No gallop, No irregular rhythm, No murmurs/extra sounds, No rub, No S3, No S4, No other Gastrointestinal: soft, non-tender, bowel sounds, distended, hepatomegaly, other (Obesity with thick fatty layer of the anterior abdominal wall with no rebound.); No nl liver, spleen, No ascites, No firm, No mass, No rebound or guarding, No splenomegaly, No surgical scars, No tender Genitourinary - Female: nl adnexae, nl external genitalia, CVA tenderness; No CMT, No uterus, No other Musculoskeletal: joint tenderness, muscle tone, muscle weakness, spine non- tender (Severe tenderness of the intrascapular area lumbosacral area with great difficulty to get up to move. Movements are making bad pain worse.), other (Mildly deformed and swollen left forearm where the patient had a history of trauma with a fracture.) Extremities: No normal pulses, No calf tenderness, No cyanosis, No clubbing, No edema, No pitting pedal edema, No palpable cord, No tenderness, No other + DIFFICULTIES TO AMBULATE LLE E 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: VALIDATION MANAGER 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; No nl mental status, No nl speech, No nl strength, No confused, No DTR's symmetric, No focal weakness, No lethargic, No numbness, No reflexes, No unresponsive, No other Skin: nl turgor; No rash or lesions, No diaphoresis, No ecchymosis, No laceration, No puncture, No other Lymph: No nl lymph nodes, No enlarged, No nontender, No other L BREAST- LARGE L BREAST MASS, DECREASED IN SIZE LUE LYMPHEDEMA Medications Medications Current Medications Anastrozole (Arimidex) 1 mg DAILY PO Last administered on 06/10/18at 09:04; Admin Dose 1 MG; Start 04/25/18 at 19:00 Zolpidem Tartrate (Ambien) 10 mg HS PRN PO INSOMNIA; Start 04/25/18 at 23:30 Lorazepam (Ativan) 0.5 mg TID PRN PO ANXIETY Last administered on 06/08/18at 2 1:38; Admin Dose 0.5 MG; Start 04/25/18 at 23:30 Magnesium Hydroxide (Milk Of Mag) 30 ml DAILY PRN PO CONSTIPATION Last adminis tered on 06/10/18at 09:07; Admin Dose 30 ML; Start 04/27/18 at 21:00 Enoxaparin Sodium (Lovenox) 40 mg DAILY SC Last administered on 05/27/18 09:25; Admin Dose 40 MG; Start 05/24/18 at 09:00; Status Hold Acetaminophen (Tylenol Tab) 500 mg Q6H PRN PO MILD PAIN(1-3)OR ELEVATED TEMP Last administered on 06/02/18at 23:59; Admin Dose 500 MG; Start 05/30/18 at 20:30 Cholecalciferol (Vitamin D) 4,000 unit DAILY PO Last administered on 06/10/18 09:03; Admin Dose 4,000 UNIT; Start 06/02/18 at 09:00 Oxycodone HCl (Oxycontin) 20 mg BID PO Last administered on 06/10/18 20:44; Admin Dose 20 MG; Start 06/03/18 at 21:00 Amlodipine Besylate (Norvasc) 5 mg QAM PO ; Start 06/04/18 at 09:00 Morphine Sulfate (morphine) 9 mg Q4H PRN PO SEVERE PAIN LEVEL 7-10 Last administered on 06/11/18 05:17; Admin Dose 9 MG; Start 06/04/18 at 10:00 Sodium Chloride (Nacl) 1 gm TID PO Last administered on 06/10/18 20:44; Admin Dose 1 GM; Start 06/07/18 at 09:00 DES DUNAWAY MD Jun 11, 2018 07:11
[2018-06-11 07:39] VITALS: BP 106/56; PULSE 105; RESP 18
[2018-06-11] MEDS: AMLODIPINE 5 MG TAB PO SCH (09:00)
[2018-06-11] MEDS: oxyCODONE (CR) 20 MG TAB [oxyCONTIN] PO SCH ×2 (09:44→21:18)
[2018-06-11] MEDS: SODIUM CHLORIDE 1 GM TAB PO SCH ×2 (09:44→21:18)
[2018-06-11] MEDS: ANASTROZOLE 1 MG TAB PO SCH (09:45)
[2018-06-11] MEDS: CHOLECALCIFEROL 2,000 UNIT CAP PO SCH (09:45)
[2018-06-11] MEDS: LORAZEPAM 0.5 MG TAB PO PRN ×2 (09:47→22:12)
--- NOTE | 2018-06-11 13:29 | PN ---
Date/Time of Note Date/Time of Note DATE: 06/11/18 TIME: 13:25 Assessment/Plan VTE Prophylaxis Risk score (from Ns)>0 risk: 7 SCD applied (from Ns): No SCD contraindicated: low risk/ambulating Pharmacological prophylaxis: LMWH Pharm contraindication: low risk/ambulating Lines/Catheters IV Catheter Type (from [facility]): PORT-A-CATH Urinary Cath still in place: No Reason Cath still needed: urinary retention Assessment/Plan Assessment/Plan 1. Cancer of the left breast. Exact type at this time unknown.MULTIPLE BONY METS, PULMONARY METS 2. Severe pain in the interscapular and lumbar sacral area most probably metas tatic lesion possible femoral fracture. pathologic fracture of T9 with 60% of loss of height. Neurosurgical consult planned. 3. Obesity. 4. Weight loss 60 pounds during the last 2 years by diet 5. PMS. 6. Myopia. 7. Anemia chronic disease. 8. Anxiety disorder. 9. Posttraumatic stress disorder. 10. Pain in the left forearm with a history of fracture of ulna and radius. 11. Tachycardia 12. Hypoxemia at night marginal improved after 2 L of nasal cannula oxygen. 13. Process at night. 14. 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 15. Pain syndrome. 16. Hyponatremia 17. Leukopenia 18. Neutropenia with occasional fever and chills. Hold discharge, until she is stable. 19. Hypoalbuminemia 20.Right sided cp after catheter incertion and correction. 21. Increased edema both lower extremities with hypotension. Result Diagram: 06/11/18 0454 Results 24hrs Laboratory Tests Test 06/11/18 04:54 White Blood Count 5.5 Red Blood Count 2.57 L Hemoglobin 8.0 L Hematocrit 25.9 L Mean Corpuscular Volume 100.8 Mean Corpuscular Hemoglobin 31.1 Mean Corpuscular Hemoglobin Concent 30.9 L Red Cell Distribution Width 17.7 H Platelet Count 118 L Mean Platelet Volume 10.2 Immature Granulocytes % 5.800 H Neutrophils % Segmented Neutrophils % (Manual) 43 Band Neutrophils % (Manual) 12 H Lymphocytes % Lymphocytes % (Manual) 28 Reactive Lymphocytes % (Manual) 4 H Monocytes % Monocytes % (Manual) 11 Eosinophils % Basophils % Metamyelocytes % (manual) 1 H Myelocytes % (Manual) 1 H Nucleated Red Blood Cells % 4 H Immature Granulocytes # 0.320 H Neutrophils # Neutrophils # (Manual) 2.4 Band Neutrophils # 0.6 Lymphocytes (Manual) 1.5 Lymphocytes # Reactive Lymphocytes # 0.2 H Monocytes # Monocytes # (Manual) 0.6 Eosinophils # Basophils # Metamyelocytes # 0.0 Myelocytes # 0.0 Nucleated Red Blood Cells # Platelet Estimate DECREASED Giant Platelets 1 H Polychromasia 2+ Anisocytosis 1+ Microcytosis 1+ Spherocytes 1+ Subjective 24 Hr Interval Summary Free Text/Dictation Increased edema of both lower extremities. I am drinking too much water. Discussed. Pain persists. Constitutional: requiring O2; No no complaints, No improved, No chills, No diaphoresis, No disoriented, No febrile, No poor po, No requiring IVF, No other Eyes: No no complaints, No pain, No discharge, No redness, No visual change, No other ENT: No no complaints, No bleeding, No pain, No congestion, No discharge, No dysphagia, No sore throat, No other Respiratory: shortness of breath; No no complaints, No pain, No cough, No pleuritic pain, No sputum, No wheezing, No other Cardiovascular: edema, palpitations, paroxysmal nocturnal dyspnea; No no complaints, No chest pain, No lightheadedness, No orthopenea, No other Gastrointestinal: constipation, flatus, passing stool; No no complaints, No pain, No blood, No decreased appetite, No diarrhea, No nausea, No vomiting, No other Genitourinary: dysuria, flank pain; No no complaints, No bleeding, No discharge, No hematuria, No other Musculoskeletal: back pain, bone/joint pain, neck pain; No no complaints, No restricted range of motion, No swelling, No other Skin: No no complaints, No bruising, No erythema, No laceration, No pruritis, No rash, No skin lesions, No other Neurologic: headache; No no complaints, No confusion, No dizziness, No focal-weakness, No syncope, No seizure, No other Endocrine: dry skin; No no complaints, No polyuria, No polydypsia, No temp intolerance, No other Lymphatic: No no complaints, No adenopathy, No tender nodes, No lymphadema, No other Psychological: anxiety; No no complaints, No nl mood/affect, No confusion, No depression, No suicidal, No other Exam/Review of Systems Vital Signs Vitals Vital Signs Date Temp Pulse Resp B/P (MAP) Pulse Ox O2 O2 Flow FiO2 Time Delivery Rate 06/11/18 99.9 105 18 106/56 95 Room Air 07:39 (73) Intake and Output 06/10/18 06/10/18 06/11/18 1414:59 22:59 06:59 IntakeIntake Total 1100 ml 200 ml BalanceBalance 1100 ml 200 ml Exam Constitutional: alert, oriented, well developed, frail, obese Psych: anxiety; No no complaints, No nl mood/affect, No confusion, No depression, No suicidal, No other Head: normocephalic, atraumatic; No lacerations, No hematomas, No other Eyes: EOMI, nl lids, PERRL; No nl conjunctiva, No nl sclera, No icteric, No fundi, disc, No other ENMT: nl external ears & nose, nl lips & teeth, nl nasal mucosa & septum; No mucosa pink and moist, No intubated, No tympanic membranes, No other Neck: jvd, bruits; No supple, No non-tender, No masses, No thyromegaly, No nuchal rigidity, No other Respiratory: clear to auscultation, normal air movement, diminished breath camryn nds; No congested cough, No crackles/rales, No intercostal retraction, No labored breathing, No respirations, No tactile fremitus, No wheezing, No other Cardiovascular: bruits, edema, jugular venous distention (JVD), systolic murmur; No regular rate and rhythm, No nl pulses, No diastolic murmur, No gallop, No irregular rhythm, No murmurs/extra sounds, No rub, No S3, No S4, No other Gastrointestinal: distended; No soft, No nl liver, spleen, No non-tender, No ascites, No bowel sounds, No firm, No hepatomegaly, No mass, No rebound or guarding, No splenomegaly, No surgical scars, No tender, No other Genitourinary - Female: nl adnexae, nl external genitalia; No CMT, No CVA tenderness, No uterus, No other Musculoskeletal: joint tenderness, muscle tone, muscle weakness; No nl extremities to inspection, No nl gait and stance, No range of motion, No spine non-tender, No swelling, No other Extremities: edema; No normal pulses, No calf tenderness, No cyanosis, No clubbing, No pitting pedal edema, No palpable cord, No tenderness, No other 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: 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; No nl mental status, No nl speech, No nl strength, No confused, No DTR's symmetric, No focal weakness, No lethargic, No numbness, No reflexes, No unresponsive, No other Skin: nl turgor; No rash or lesions, No diaphoresis, No ecchymosis, No laceration, No puncture, No other Medications Medications Current Medications Anastrozole (Arimidex) 1 mg DAILY PO Last administered on 06/11/18 09:45; Admin Dose 1 MG; Start 04/25/18 at 19:00 Zolpidem Tartrate (Ambien) 10 mg HS PRN PO INSOMNIA; Start 04/25/18 at 23:30 Lorazepam (Ativan) 0.5 mg TID PRN PO ANXIETY Last administered on 06/11/18 09:47; Admin Dose 0.5 MG; Start 04/25/18 at 23:30 Magnesium Hydroxide (Milk Of Mag) 30 ml DAILY PRN PO CONSTIPATION Last administered on 06/10/18 09:07; Admin Dose 30 ML; Start 04/27/18 at 21:00 Enoxaparin Sodium (Lovenox) 40 mg DAILY SC Last administered on 05/27/18 09:25; Admin Dose 40 MG; Start 05/24/18 at 09:00; Status Hold Acetaminophen (Tylenol Tab) 500 mg Q6H PRN PO MILD PAIN(1-3)OR ELEVATED TEMP Last administered on 06/02/18 23:59; Admin Dose 500 MG; Start 05/30/18 at 20:30 Cholecalciferol (Vitamin D) 4,000 unit DAILY PO Last administered on 06/11/18 09:45; Admin Dose 4,000 UNIT; Start 06/02/18 at 09:00 Oxycodone HCl (Oxycontin) 20 mg BID PO Last administered on 06/11/18 09:44; Admin Dose 20 MG; Start 06/03/18 at 21:00 Amlodipine Besylate (Norvasc) 5 mg QAM PO ; Start 06/04/18 at 09:00 Morphine Sulfate (morphine) 9 mg Q4H PRN PO SEVERE PAIN LEVEL 7-10 Last administered on 06/11/18at 05:17; Admin Dose 9 MG; Start 06/04/18 at 10:00 Sodium Chloride (Nacl) 1 gm TID PO Last administered on 06/11/18at 09:44; Admin Dose 1 GM; Start 06/07/18 at 09:00 RUSS JEROME MD Jun 11, 2018 13:29
--- NOTE | 2018-06-11 13:30 | CONS ---
Date/Time of Note Date/Time of Note DATE: 06/11/18 TIME: 13:28 Assessment/Plan Assessment/Plan Additional Assessment/Plan 1. The patient is with heart failure, appears to be acute on chronic. The patient with recent chemotherapy and radiation therapy to the chest. ECHO reviewed - Ef 55%, con't to diureses - stable overall - BP Ok. 2. Hypertension. Blood pressure is well controlled. Continue to adjust medicines as needed. Traeted. 3. Breast cancer. The patient has breast carcinoma with stage IV. Continue therapy per Dr. Fernández. Responding therpy. 4. Anemia. Hemoglobin is fairly stable, but on the low side. No blood transfusion indicated now. Continue to monitor. Rxas needed. 5. CP - EKG OK Consultation Date/Type/Reason Admit Date/Time Apr 25, 2018 at 14:37 Initial Consult Date 04/26/18 Requesting Provider: RUSS JEROME MD 24 HR Interval Summary Free Text/Dictation ECHO reviewed - Ef 55%, con't to diureses - stable overall - BP Ok. ROS: No fever, no chills, no nausea, no vomiting, no diarrhea/constipation No recent weight changes No chest pain, no PND, no orthopnea - improved SOB No dizziness, blurred vision No thirst, no heat or cold intolerance Exam/Review of Systems Vital Signs Vitals Vital Signs Date Temp Pulse Resp B/P (MAP) Pulse Ox O2 O2 Flow FiO2 Time Delivery Rate 06/11/18 99.9 105 18 106/56 95 Room Air 07:39 (73) Intake and Output 06/10/18 06/10/18 06/11/18 1515:00 23:00 07:00 IntakeIntake Total 1100 ml 200 ml BalanceBalance 1100 ml 200 ml Exam General: WN/WD/NAD, AOx 3 HEENT: Unicetric/atraumatic/EOMI (follow commands) NECK: JVD elevated, no thyromegaly Lymph: no lymphadenopathy HEART: regular with no S3, II/ systolic murmur at apex LUNGS: Coarse sounds ABD: soft, NT, ND, +BS : Intact Neuro: non focal SKIN: chronic changes EXT: trace edema Medications Medications Current Medications Anastrozole (Arimidex) 1 mg DAILY PO Last administered on 06/11/18at 09:45; Admin Dose 1 MG; Start 04/25/18 at 19:00 Zolpidem Tartrate (Ambien) 10 mg HS PRN PO INSOMNIA; Start 04/25/18 at 23:30 Lorazepam (Ativan) 0.5 mg TID PRN PO ANXIETY Last administered on 06/11/18 09:47; Admin Dose 0.5 MG; Start 04/25/18 at 23:30 Magnesium Hydroxide (Milk Of Mag) 30 ml DAILY PRN PO CONSTIPATION Last administered on 06/10/18 09:07; Admin Dose 30 ML; Start 04/27/18 at 21:00 Enoxaparin Sodium (Lovenox) 40 mg DAILY SC Last administered on 05/27/18 0 9:25; Admin Dose 40 MG; Start 05/24/18 at 09:00; Status Hold Acetaminophen (Tylenol Tab) 500 mg Q6H PRN PO MILD PAIN(1-3)OR ELEVATED TEMP Last administered on 06/02/18at 23:59; Admin Dose 500 MG; Start 05/30/18 at 20:30 Cholecalciferol (Vitamin D) 4,000 unit DAILY PO Last administered on 06/11/18 09:45; Admin Dose 4,000 UNIT; Start 06/02/18 at 09:00 Oxycodone HCl (Oxycontin) 20 mg BID PO Last administered on 06/11/18 09:44; Admin Dose 20 MG; Start 06/03/18 at 21:00 Amlodipine Besylate (Norvasc) 5 mg QAM PO ; Start 06/04/18 at 09:00 Morphine Sulfate (morphine) 9 mg Q4H PRN PO SEVERE PAIN LEVEL 7-10 Last administered on 06/11/18 05:17; Admin Dose 9 MG; Start 06/04/18 at 10:00 Sodium Chloride (Nacl) 1 gm TID PO Last administered on 06/11/18 09:44; Admin Dose 1 GM; Start 06/07/18 at 09:00 EMILY NELSON MD Jun 11, 2018 13:30
[2018-06-11 13:53] VITALS: BP 102/67; RESP 16
[2018-06-11] MEDS ORDERED: ENALAPRIL 2.5 MG TAB PO ONE (14:30)
--- NOTE | 2018-06-11 14:41 | CONS ---
Date/Time of Note Date/Time of Note DATE: 06/11/18 TIME: 14:40 Assessment/Plan Assessment/Plan Chief Complaint/Hosp Course Patient had a low-grade fever today of 99.9 she is awake alert in no distress denies pain looks comfortable WBC 5.5 BUN 10 creatinine 0.36 Indwelling: R chest Port-A-Cath 05/29/18 Physical examination: Obese well-developed middle-aged Qatari-speaking woman who is alert in no distress. Head atraumatic normocephalic sclera nonicteric vehicle mucosa pink. Neck is supple chest rise symmetrical breath sounds diminished bases. Heart: S1-S2. Abdomen soft bowel sounds present extremities without cyanosis, left upper extremity with edema Assessment: 1. Status post neutropenic fevers 2. Metastatic breast cancer 3. Status post urinary tract infection 4. Obesity 5. Anasarca Plan: Remains stable, off antibiotics, will reculture if she spikes fever Consultation Date/Type/Reason Admit Date/Time Apr 25, 2018 at 14:37 Initial Consult Date 04/26/18 Type of Consult ID Requesting Provider: RUSS JEROME MD Exam/Review of Systems Vital Signs Vitals Vital Signs Date Temp Pulse Resp B/P (MAP) Pulse Ox O2 O2 Flow FiO2 Time Delivery Rate 06/11/18 98.3 16 102/67 96 Room Air 13:53 (79) 06/11/18 105 07:39 Intake and Output 06/10/18 06/10/18 06/11/18 1515:00 23:00 07:00 IntakeIntake Total 1100 ml 200 ml BalanceBalance 1100 ml 200 ml Medications Medications Current Medications Anastrozole (Arimidex) 1 mg DAILY PO Last administered on 06/11/18at 09:45; Admin Dose 1 MG; Start 04/25/18 at 19:00 Zolpidem Tartrate (Ambien) 10 mg HS PRN PO INSOMNIA; Start 04/25/18 at 23:30 Lorazepam (Ativan) 0.5 mg TID PRN PO ANXIETY Last administered on 06/11/18at 09:47; Admin Dose 0.5 MG; Start 04/25/18 at 23:30 Magnesium Hydroxide (Milk Of Mag) 30 ml DAILY PRN PO CONSTIPATION Last administered on 06/10/18at 09:07; Admin Dose 30 ML; Start 04/27/18 at 21:00 Enoxaparin Sodium (Lovenox) 40 mg DAILY SC Last administered on 05/27/18at 09:25; Admin Dose 40 MG; Start 05/24/18 at 09:00; Status Hold Acetaminophen (Tylenol Tab) 500 mg Q6H PRN PO MILD PAIN(1-3)OR ELEVATED TEMP Last administered on 06/02/18at 23:59; Admin Dose 500 MG; Start 05/30/18 at 20:30 Cholecalciferol (Vitamin D) 4,000 unit DAILY PO Last administered on 06/11/18at 09:45; Admin Dose 4,000 UNIT; Start 06/02/18 at 09:00 Oxycodone HCl (Oxycontin) 20 mg BID PO Last administered on 06/11/18at 09:44; Admin Dose 20 MG; Start 06/03/18 at 21:00 Morphine Sulfate (morphine) 9 mg Q4H PRN PO SEVERE PAIN LEVEL 7-10 Last administered on 06/11/18at 13:50; Admin Dose 9 MG; Start 06/04/18 at 10:00 Sodium Chloride (Nacl) 1 gm BID PO ; Start 06/11/18 at 21:00 Spironolactone (Aldactone) 25 mg BID DIURETICS PO ; Start 06/11/18 at 18:00 Carvedilol (Coreg) 3.125 mg BID PO ; Start 06/11/18 at 13:30 YUAN ROMERO NP Jun 11, 2018 14:41
[2018-06-11] MEDS: SPIRONOLACTONE 25 MG TAB PO SCH (18:11)
[2018-06-11 19:36] VITALS: BP 101/52; PULSE 94; RESP 18
[2018-06-12 02:27] VITALS: BP 104/73; PULSE 90; RESP 18
[2018-06-12] MEDS: morphine LIQ (10 MG/5 ML) CUP PO PRN ×5 (02:28→22:56)
[2018-06-12] MEDS: SPIRONOLACTONE 25 MG TAB PO SCH ×2 (06:30→18:26)
[2018-06-12 08:00] VITALS: BP 97/56; PULSE 91; RESP 18
[2018-06-12] MEDS: SODIUM CHLORIDE 1 GM TAB PO SCH ×2 (09:35→21:19)
[2018-06-12] MEDS: oxyCODONE (CR) 20 MG TAB [oxyCONTIN] PO SCH ×2 (09:37→21:19)
[2018-06-12] MEDS: CHOLECALCIFEROL 2,000 UNIT CAP PO SCH (09:37)
[2018-06-12] MEDS: ANASTROZOLE 1 MG TAB PO SCH (09:40)
--- NOTE | 2018-06-12 11:14 | CONS ---
Date/Time of Note Date/Time of Note DATE: 06/12/18 TIME: 11:12 Assessment/Plan Assessment/Plan Assessment/Plan 1. The patient is with heart failure, appears to be acute on chronic. The patient with recent chemotherapy and radiation therapy to the chest. ECHO reviewed - Ef 55%, con't to diureses - stable overall - BP Ok. Pt with some uto-diuresis - better now. Dispo to follow. 2. Hypertension. Blood pressure is well controlled. Continue to adjust medicines as needed. Traeted. Controlled with Rx. 3. Breast cancer. The patient has breast carcinoma with stage IV. Continue therapy per Dr. Fernández. Responding therpy. 4. Anemia. Hemoglobin is fairly stable, but on the low side. No blood transfusion indicated now. Continue to monitor. Rxas needed. 5. CP - EKG OK Result Diagram: 06/12/1842506/12/18425 Results 24hrs Laboratory Tests Test 06/12/18 04:20 06/12/18 04:26 Urine Color YELLOW Urine Clarity CLEAR Urine pH 7.0 Urine Specific [place] 1.008 Urine Ketones NEGATIVE Urine Nitrite NEGATIVE Urine Bilirubin NEGATIVE Urine Urobilinogen NEGATIVE Urine Leukocyte Esterase 1+ H Urine Microscopic RBC 1 Urine Microscopic WBC 9 H Urine Bacteria FEW A Urine Hemoglobin NEGATIVE Urine Glucose NEGATIVE Urine Total Protein NEGATIVE White Blood Count 4.5 L Red Blood Count 2.83 L Hemoglobin 8.9 L Hematocrit 28.4 L Mean Corpuscular Volume 100.4 Mean Corpuscular Hemoglobin 31.4 Mean Corpuscular Hemoglobin Concent 31.3 L Red Cell Distribution Width 18.1 H Platelet Count 146 # Mean Platelet Volume 10.1 Immature Granulocytes % 4.600 H Neutrophils % 32.5 L Lymphocytes % 50.1 Monocytes % 11.9 H Eosinophils % 0.0 Basophils % 0.9 Nucleated Red Blood Cells % 3.8 H Immature Granulocytes # 0.210 H Neutrophils # 1.5 L Lymphocytes # 2.3 Monocytes # 0.5 Eosinophils # 0.0 Basophils # 0.0 Nucleated Red Blood Cells # 0.2 H Sodium Level 140 Potassium Level 4.5 Chloride Level 105 Carbon Dioxide Level 28 Anion Gap 7 Blood Urea Nitrogen 6 L Creatinine 0.45 Est Glomerular Filtrat Rate mL/min > 60 Glucose Level 118 Calcium Level 7.9 L Total Bilirubin 0.4 Direct Bilirubin 0.00 Indirect Bilirubin 0.4 Aspartate Amino Transf (AST/SGOT) 37 Alanine Aminotransferase (ALT/SGPT) 25 Alkaline Phosphatase 256 H Total Protein 5.4 L Albumin 2.7 L Globulin 2.70 Albumin/Globulin Ratio 1.00 Consultation Date/Type/Reason Admit Date/Time Apr 25, 2018 at 14:37 Initial Consult Date 04/26/18 Requesting Provider: RUSS JEROME MD 24 HR Interval Summary Free Text/Dictation Pt with some uto-diuresis - better now. Dispo to follow. ROS: No fever, no chills, no nausea, no vomiting, no diarrhea/constipation No recent weight changes No chest pain, no PND, no orthopnea - improved SOB No dizziness, blurred vision No thirst, no heat or cold intolerance Exam/Review of Systems Vital Signs Vitals Vital Signs Date Temp Pulse Resp B/P (MAP) Pulse Ox O2 O2 Flow FiO2 Time Delivery Rate 06/12/18 97.7 91 18 97/56 (70) 91 08:00 06/11/18 Nasal 19:36 Cannula Intake and Output 06/11/18 06/11/18 06/12/18 1515:00 23:00 07:00 IntakeIntake Total 300 ml 350 ml 450 ml BalanceBalance 300 ml 350 ml 450 ml Exam General: WN/WD/NAD, AOx 3 HEENT: Unicetric/atraumatic/EOMI (follows commands) NECK: JVD elevated, no thyromegaly Lymph: no lymphadenopathy HEART: regular with no S3, II/ systolic murmur at apex LUNGS: Coarse sounds ABD: soft, NT, ND, +BS : Intact Neuro: non focal SKIN: chronic changes EXT: trace edema Medications Medications Current Medications Anastrozole (Arimidex) 1 mg DAILY PO Last administered on 06/12/18at 09:40; Admin Dose 1 MG; Start 04/25/18 at 19:00 Zolpidem Tartrate (Ambien) 10 mg HS PRN PO INSOMNIA; Start 04/25/18 at 23:30 Lorazepam (Ativan) 0.5 mg TID PRN PO ANXIETY Last administered on 06/11/18at 22:12; Admin Dose 0.5 MG; Start 04/25/18 at 23:30 Magnesium Hydroxide (Milk Of Mag) 30 ml DAILY PRN PO CONSTIPATION Last admi nistered on 06/10/18 09:07; Admin Dose 30 ML; Start 04/27/18 at 21:00 Enoxaparin Sodium (Lovenox) 40 mg DAILY SC Last administered on 05/27/18 09:25; Admin Dose 40 MG; Start 05/24/18 at 09:00; Status Hold Acetaminophen (Tylenol Tab) 500 mg Q6H PRN PO MILD PAIN(1-3)OR ELEVATED TEMP Last administered on 06/02/18at 23:59; Admin Dose 500 MG; Start 05/30/18 at 20:30 Cholecalciferol (Vitamin D) 4,000 unit DAILY PO Last administered on 06/12/18 09:37; Admin Dose 4,000 UNIT; Start 06/02/18 at 09:00 Oxycodone HCl (Oxycontin) 20 mg BID PO Last administered on 06/12/18 09:37; Admin Dose 20 MG; Start 06/03/18 at 21:00 Morphine Sulfate (morphine) 9 mg Q4H PRN PO SEVERE PAIN LEVEL 7-10 Last administered on 06/12/18 06:31; Admin Dose 9 MG; Start 06/04/18 at 10:00 Sodium Chloride (Nacl) 1 gm BID PO Last administered on 06/12/18 09:35; Admin Dose 1 GM; Start 06/11/18 at 21:00 Spironolactone (Aldactone) 25 mg BID DIURETICS PO Last administered on 06/12/18 06:30; Admin Dose 25 MG; Start 06/11/18 at 18:00 Carvedilol (Coreg) 3.125 mg BID PO Last administered on 06/11/18 21:19; Admin Dose 3.125 MG; Start 06/11/18 at 13:30 EMILY NELSON MD Jun 12, 2018 11:14
--- NOTE | 2018-06-12 13:43 | CONS ---
Date/Time of Note Date/Time of Note DATE: 06/12/18 TIME: 13:42 Assessment/Plan Assessment/Plan Hospital Course No acute changes, alert, feels better, no fevers, non n/v/d Indwelling: R chest Port-A-Cath 05/29/18 Physical examination: Obese well-developed middle-aged Tristanian-speaking woman who is alert in no distress. Head atraumatic normocephalic sclera nonicteric vehicle mucosa pink. Neck is supple chest rise symmetrical breath sounds diminished bases. Heart: S1-S2. Abdomen soft bowel sounds present extremities without cyanosis, left upper extremity with edema Assessment: 1. Status post neutropenic fevers 2. Metastatic breast cancer 3. Status post urinary tract infection 4. Obesity 5. Anasarca Plan: Remains stable, off antibiotics, will reculture if she spikes fever Result Diagram: 06/12/18 0426 06/12/18 0426 Results 24hrs Laboratory Tests Test 06/12/18 04:20 06/12/18 04:26 Urine Color YELLOW Urine Clarity CLEAR Urine pH 7.0 Urine Specific [place] 1.008 Urine Ketones NEGATIVE Urine Nitrite NEGATIVE Urine Bilirubin NEGATIVE Urine Urobilinogen NEGATIVE Urine Leukocyte Esterase 1+ H Urine Microscopic RBC 1 Urine Microscopic WBC 9 H Urine Bacteria FEW A Urine Hemoglobin NEGATIVE Urine Glucose NEGATIVE Urine Total Protein NEGATIVE White Blood Count 4.5 L Red Blood Count 2.83 L Hemoglobin 8.9 L Hematocrit 28.4 L Mean Corpuscular Volume 100.4 Mean Corpuscular Hemoglobin 31.4 Mean Corpuscular Hemoglobin Concent 31.3 L Red Cell Distribution Width 18.1 H Platelet Count 146 # Mean Platelet Volume 10.1 Immature Granulocytes % 4.600 H Neutrophils % 32.5 L Lymphocytes % 50.1 Monocytes % 11.9 H Eosinophils % 0.0 Basophils % 0.9 Nucleated Red Blood Cells % 3.8 H Immature Granulocytes # 0.210 H Neutrophils # 1.5 L Lymphocytes # 2.3 Monocytes # 0.5 Eosinophils # 0.0 Basophils # 0.0 Nucleated Red Blood Cells # 0.2 H Sodium Level 140 Potassium Level 4.5 Chloride Level 105 Carbon Dioxide Level 28 Anion Gap 7 Blood Urea Nitrogen 6 L Creatinine 0.45 Est Glomerular Filtrat Rate mL/min > 60 Glucose Level 118 Calcium Level 7.9 L Total Bilirubin 0.4 Direct Bilirubin 0.00 Indirect Bilirubin 0.4 Aspartate Amino Transf (AST/SGOT) 37 Alanine Aminotransferase (ALT/SGPT) 25 Alkaline Phosphatase 256 H Total Protein 5.4 L Albumin 2.7 L Globulin 2.70 Albumin/Globulin Ratio 1.00 Consultation Date/Type/Reason Admit Date/Time Apr 25, 2018 at 14:37 Initial Consult Date 04/26/18 Type of Consult ID Requesting Provider: RUSS JEROME MD Exam/Review of Systems Vital Signs Vitals Vital Signs Date Temp Pulse Resp B/P (MAP) Pulse Ox O2 O2 Flow FiO2 Time Delivery Rate 06/12/18 97.7 91 18 97/56 (70) 91 08:00 06/11/18 Nasal 19:36 Cannula Intake and Output 06/11/18 06/11/18 06/12/18 1515:00 23:00 07:00 IntakeIntake Total 300 ml 350 ml 450 ml BalanceBalance 300 ml 350 ml 450 ml Medications Medications Current Medications Anastrozole (Arimidex) 1 mg DAILY PO Last administered on 06/12/18at 09:40; Admin Dose 1 MG; Start 04/25/18 at 19:00 Zolpidem Tartrate (Ambien) 10 mg HS PRN PO INSOMNIA; Start 04/25/18 at 23:30 Lorazepam (Ativan) 0.5 mg TID PRN PO ANXIETY Last administered on 06/11/18at 22:12; Admin Dose 0.5 MG; Start 04/25/18 at 23:30 Magnesium Hydroxide (Milk Of Mag) 30 ml DAILY PRN PO CONSTIPATION Last administered on 06/10/18at 09:07; Admin Dose 30 ML; Start 04/27/18 at 21:00 Enoxaparin Sodium (Lovenox) 40 mg DAILY SC Last administered on 05/27/18at 09:25; Admin Dose 40 MG; Start 05/24/18 at 09:00; Status Hold Acetaminophen (Tylenol Tab) 500 mg Q6H PRN PO MILD PAIN(1-3)OR ELEVATED TEMP Last administered on 06/02/18at 23:59; Admin Dose 500 MG; Start 05/30/18 at 20:30 Cholecalciferol (Vitamin D) 4,000 unit DAILY PO Last administered on 06/12/18at 09:37; Admin Dose 4,000 UNIT; Start 06/02/18 at 09:00 Oxycodone HCl (Oxycontin) 20 mg BID PO Last administered on 06/12/18 09:37; Admin Dose 20 MG; Start 06/03/18 at 21:00 Morphine Sulfate (morphine) 9 mg Q4H PRN PO SEVERE PAIN LEVEL 7-10 Last administered on 06/12/18 06:31; Admin Dose 9 MG; Start 06/04/18 at 10:00 Sodium Chloride (Nacl) 1 gm BID PO Last administered on 06/12/18 09:35; Admin Dose 1 GM; Start 06/11/18 at 21:00 Spironolactone (Aldactone) 25 mg BID DIURETICS PO Last administered on 05/19 06:30; Admin Dose 25 MG; Start 06/11/18 at 18:00 Carvedilol (Coreg) 3.125 mg BID PO Last administered on 06/11/18 21:19; Admin Dose 3.125 MG; Start 06/11/18 at 13:30 YUAN ROMERO NP Jun 12, 2018 13:43
[2018-06-12 14:38] VITALS: BP 96/58; PULSE 102; RESP 16
[2018-06-12 20:18] VITALS: BP 98/57; PULSE 65; RESP 16
[2018-06-12] MEDS: LORAZEPAM 0.5 MG TAB PO PRN (22:56)
[2018-06-13 01:22] VITALS: BP 106/69; PULSE 103; RESP 18
[2018-06-13] MEDS: morphine LIQ (10 MG/5 ML) CUP PO PRN ×3 (04:41→20:16)
[2018-06-13] MEDS: SPIRONOLACTONE 25 MG TAB PO SCH ×2 (05:21→18:38)
[2018-06-13 08:23] VITALS: BP 108/70; PULSE 97; RESP 18
[2018-06-13] MEDS: SODIUM CHLORIDE 1 GM TAB PO SCH ×2 (09:11→21:35)
[2018-06-13] MEDS: CHOLECALCIFEROL 2,000 UNIT CAP PO SCH (09:11)
[2018-06-13] MEDS: ANASTROZOLE 1 MG TAB PO SCH (09:13)
[2018-06-13] MEDS: oxyCODONE (CR) 20 MG TAB [oxyCONTIN] PO SCH ×2 (09:18→21:36)
[2018-06-13 14:14] VITALS: BP 115/57; PULSE 94; RESP 18
--- NOTE | 2018-06-13 14:16 | CONS ---
Date/Time of Note Date/Time of Note DATE: 06/13/18 TIME: 14:15 Assessment/Plan Assessment/Plan Hospital Course No acute changes, alert, looks comfortable, no fevers, non n/v/d Indwelling: R chest Port-A-Cath 05/29/18 Physical examination: Obese well-developed middle-aged Mongolian-speaking woman who is alert in no distress. Head atraumatic normocephalic sclera nonicteric vehicle mucosa pink. Neck is supple chest rise symmetrical breath sounds diminished bases. Heart: S1-S2. Abdomen soft bowel sounds present extremities without cyanosis, left upper extremity with edema Assessment: 1. Status post neutropenic fevers 2. Metastatic breast cancer 3. Status post urinary tract infection 4. Obesity 5. Anasarca Plan: Remains stable, off antibiotics, will reculture if she spikes fever, follow oncology recommendations Result Diagram: 06/13/18 0434 06/12/18 0426 Results 24hrs Laboratory Tests Test 06/13/18 04:34 White Blood Count 3.9 L Red Blood Count 2.52 L Hemoglobin 8.0 L Hematocrit 25.5 L Mean Corpuscular Volume 101.2 H Mean Corpuscular Hemoglobin 31.7 Mean Corpuscular Hemoglobin Concent 31.4 L Red Cell Distribution Width 18.4 H Platelet Count 157 Mean Platelet Volume 10.2 Immature Granulocytes % 4.100 H Neutrophils % 28.2 L Lymphocytes % 51.7 H Monocytes % 15.2 H Eosinophils % 0.0 Basophils % 0.8 Nucleated Red Blood Cells % 3.6 H Immature Granulocytes # 0.160 H Neutrophils # 1.1 L Lymphocytes # 2.0 Monocytes # 0.6 Eosinophils # 0.0 Basophils # 0.0 Nucleated Red Blood Cells # 0.1 H Consultation Date/Type/Reason Admit Date/Time Apr 25, 2018 at 14:37 Initial Consult Date 04/26/18 Type of Consult ID Requesting Provider: RUSS JEROME MD Exam/Review of Systems Vital Signs Vitals Vital Signs Date Temp Pulse Resp B/P (MAP) Pulse Ox O2 O2 Flow FiO2 Time Delivery Rate 06/13/18 97.7 97 18 108/70 90 Room Air 08:23 (83) 06/13/18 2.0 01:22 Intake and Output 06/12/18 06/12/18 06/13/18 1515:00 23:00 07:00 IntakeIntake Total 420 ml 600 ml BalanceBalance 420 ml 600 ml Medications Medications Current Medications Anastrozole (Arimidex) 1 mg DAILY PO Last administered on 06/13/18 09:13; Admin Dose 1 MG; Start 04/25/18 at 19:00 Zolpidem Tartrate (Ambien) 10 mg HS PRN PO INSOMNIA; Start 04/25/18 at 23:30 Lorazepam (Ativan) 0.5 mg TID PRN PO ANXIETY Last administered on 06/12/18 22:56; Admin Dose 0.5 MG; Start 04/25/18 at 23:30 Magnesium Hydroxide (Milk Of Mag) 30 ml DAILY PRN PO CONSTIPATION Last administered on 06/10/18 09:07; Admin Dose 30 ML; Start 04/27/18 at 21:00 Enoxaparin Sodium (Lovenox) 40 mg DAILY SC Last administered on 05/27/18 09:25; Admin Dose 40 MG; Start 05/24/18 at 09:00; Status Hold Acetaminophen (Tylenol Tab) 500 mg Q6H PRN PO MILD PAIN(1-3)OR ELEVATED TEMP Last administered on 06/02/18at 23:59; Admin Dose 500 MG; Start 05/30/18 at 20:30 Cholecalciferol (Vitamin D) 4,000 unit DAILY PO Last administered on 06/13/18 09:11; Admin Dose 4,000 UNIT; Start 06/02/18 at 09:00 Oxycodone HCl (Oxycontin) 20 mg BID PO Last administered on 06/13/18 09:18; Admin Dose 20 MG; Start 06/03/18 at 21:00 Morphine Sulfate (morphine) 9 mg Q4H PRN PO SEVERE PAIN LEVEL 7-10 Last administered on 06/13/18 04:41; Admin Dose 9 MG; Start 06/04/18 at 10:00 Sodium Chloride (Nacl) 1 gm BID PO Last administered on 06/13/18 09:11; Admin Dose 1 GM; Start 06/11/18 at 21:00 Spironolactone (Aldactone) 25 mg BID DIURETICS PO Last administered on 05/19 05:21; Admin Dose 25 MG; Start 06/11/18 at 18:00 Carvedilol (Coreg) 3.125 mg BID PO Last administered on 06/13/18at 09:12; Admin Dose 3.125 MG; Start 06/11/18 at 13:30 YUAN ROMERO NP Jun 13, 2018 14:16
--- NOTE | 2018-06-13 14:52 | CONS ---
Date/Time of Note Date/Time of Note DATE: 06/13/18 TIME: 14:49 Assessment/Plan Assessment/Plan Hospital Course IMP: 1.CHF-diastolic acute on chronic. Reasonable volume status. laying flat EF 55% by echo this admit 2.HTN 3.Breast CA 4.anemia 5.Hyponatremia-improved 6.Compression fractures 7. UTI s/p course abx REcc: -Continue coreg and follow BP closely -Continue aldactone and follow volume status -s/p abx course, f/u cx data -ongoing oncology eval Result Diagram: 06/13/18 0434 06/12/18 0426 Results 24hrs Laboratory Tests Test 06/13/18 04:34 White Blood Count 3.9 L Red Blood Count 2.52 L Hemoglobin 8.0 L Hematocrit 25.5 L Mean Corpuscular Volume 101.2 H Mean Corpuscular Hemoglobin 31.7 Mean Corpuscular Hemoglobin Concent 31.4 L Red Cell Distribution Width 18.4 H Platelet Count 157 Mean Platelet Volume 10.2 Immature Granulocytes % 4.100 H Neutrophils % 28.2 L Lymphocytes % 51.7 H Monocytes % 15.2 H Eosinophils % 0.0 Basophils % 0.8 Nucleated Red Blood Cells % 3.6 H Immature Granulocytes # 0.160 H Neutrophils # 1.1 L Lymphocytes # 2.0 Monocytes # 0.6 Eosinophils # 0.0 Basophils # 0.0 Nucleated Red Blood Cells # 0.1 H Consultation Date/Type/Reason Admit Date/Time Apr 25, 2018 at 14:37 Initial Consult Date 04/26/18 Type of Consult cardiology Reason for Consultation CHF Requesting Provider: RUSS JEROME MD Exam/Review of Systems Vital Signs Vitals Vital Signs Date Temp Pulse Resp B/P (MAP) Pulse Ox O2 O2 Flow FiO2 Time Delivery Rate 06/13/18 98.0 94 18 115/57 90 Room Air 14:14 (76) 06/13/18 2.0 01:22 Intake and Output 06/12/18 06/12/18 06/13/18 1414:59 22:59 06:59 IntakeIntake Total 420 ml 600 ml BalanceBalance 420 ml 600 ml Exam Review of Systems: CONSTITUTIONAL: No fevers, chills. PULMONARY: No sob CARDIOVASCULAR: No chest pain/palpitations GASTROINTESTINAL: No nausea/vomiting. GENITOURINARY: No hematuria/dysuria. MUSCULOSKELETAL: No myagias/arthalgias. PSYCHIATRIC: The patient denies depression. NEUROLOGIC: No weakness Constitutional: alert, oriented Psych: no complaints Head: normocephalic ENMT: mucosa pink and moist Neck: supple, jvd (9 cm water) Respiratory: diminished breath sounds (at bases/B) Cardiovascular: regular rate and rhythm Gastrointestinal: soft, non-tender Musculoskeletal: muscle tone (normal) Extremities: edema (none) 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: other (No focal deficits) Medications Medications Current Medications Anastrozole (Arimidex) 1 mg DAILY PO Last administered on 06/13/18 09:13; Admin Dose 1 MG; Start 04/25/18 at 19:00 Zolpidem Tartrate (Ambien) 10 mg HS PRN PO INSOMNIA; Start 04/25/18 at 23:30 Lorazepam (Ativan) 0.5 mg TID PRN PO ANXIETY Last administered on 06/12/18 22:56; Admin Dose 0.5 MG; Start 04/25/18 at 23:30 Magnesium Hydroxide (Milk Of Mag) 30 ml DAILY PRN PO CONSTIPATION Last administered on 06/10/18 09:07; Admin Dose 30 ML; Start 04/27/18 at 21:00 Enoxaparin Sodium (Lovenox) 40 mg DAILY SC Last administered on 05/27/18 09:25; Admin Dose 40 MG; Start 05/24/18 at 09:00; Status Hold Acetaminophen (Tylenol Tab) 500 mg Q6H PRN PO MILD PAIN(1-3)OR ELEVATED TEMP Last administered on 06/02/18at 23:59; Admin Dose 500 MG; Start 05/30/18 at 20:30 Cholecalciferol (Vitamin D) 4,000 unit DAILY PO Last administered on 06/13/18 09:11; Admin Dose 4,000 UNIT; Start 06/02/18 at 09:00 Oxycodone HCl (Oxycontin) 20 mg BID PO Last administered on 06/13/18 09:18; Admin Dose 20 MG; Start 06/03/18 at 21:00 Morphine Sulfate (morphine) 9 mg Q4H PRN PO SEVERE PAIN LEVEL 7-10 Last administered on 06/13/18 04:41; Admin Dose 9 MG; Start 06/04/18 at 10:00 Sodium Chloride (Nacl) 1 gm BID PO Last administered on 06/13/18at 09:11; Admin Dose 1 GM; Start 06/11/18 at 21:00 Spironolactone (Aldactone) 25 mg BID DIURETICS PO Last administered on 06/13/18at 05:21; Admin Dose 25 MG; Start 06/11/18 at 18:00 Carvedilol (Coreg) 3.125 mg BID PO Last administered on 06/13/18at 09:12; Admin Dose 3.125 MG; Start 06/11/18 at 13:30 KAMILA TERESA Jun 13, 2018 14:52
[2018-06-13 19:30] VITALS: BP 90/57; PULSE 95; RESP 18
[2018-06-13] MEDS: LORAZEPAM 0.5 MG TAB PO PRN (23:07)
[2018-06-14] MEDS: morphine LIQ (10 MG/5 ML) CUP PO PRN ×4 (01:16→21:26)
[2018-06-14 01:29] VITALS: BP 98/61; RESP 20
[2018-06-14] MEDS: SPIRONOLACTONE 25 MG TAB PO SCH ×2 (05:31→18:38)
[2018-06-14 07:51] VITALS: BP 98/67; PULSE 96; RESP 18
[2018-06-14] MEDS: SODIUM CHLORIDE 1 GM TAB PO SCH ×2 (08:49→20:23)
[2018-06-14] MEDS: CHOLECALCIFEROL 2,000 UNIT CAP PO SCH (08:49)
[2018-06-14] MEDS: oxyCODONE (CR) 20 MG TAB [oxyCONTIN] PO SCH ×2 (08:51→20:23)
[2018-06-14] MEDS: ANASTROZOLE 1 MG TAB PO SCH (08:51)
--- NOTE | 2018-06-14 11:23 | CONS ---
Date/Time of Note Date/Time of Note DATE: 06/14/18 TIME: 11:22 Assessment/Plan Assessment/Plan Hospital Course No fevers overnight WBC today 3.8 H&H 7.7 and 25.4 platelets 191 neutrophils 27.3 BUN 6 creatinine 0.45 Indwelling: R chest Port-A-Cath 05/29/18 Physical examination: Obese well-developed middle-aged Japanese-speaking woman who is alert in no distress. Head atraumatic normocephalic sclera nonicteric vehicle mucosa pink. Neck is supple chest rise symmetrical breath sounds diminished bases. Heart: S1-S2. Abdomen soft bowel sounds present extremities without cyanosis, left upper extremity with edema Assessment: 1. Status post neutropenic fevers 2. Metastatic breast cancer 3. Status post urinary tract infection 4. Obesity 5. Anasarca Plan: Remains stable, off antibiotics, will reculture if she spikes fever, follow oncology recommendations Result Diagram: 06/14/18 0439 06/12/18 0426 Results 24hrs Laboratory Tests Test 06/14/18 04:39 White Blood Count 3.8 L Red Blood Count 2.53 L Hemoglobin 7.7 L Hematocrit 25.4 L Mean Corpuscular Volume 100.4 Mean Corpuscular Hemoglobin 30.4 Mean Corpuscular Hemoglobin Concent 30.3 L Red Cell Distribution Width 19.2 H Platelet Count 191 # Mean Platelet Volume 10.0 Immature Granulocytes % 2.100 H Neutrophils % 27.3 L Lymphocytes % 55.6 H Monocytes % 14.2 H Eosinophils % 0.0 Basophils % 0.8 Nucleated Red Blood Cells % 2.9 H Immature Granulocytes # 0.080 H Neutrophils # 1.0 L Lymphocytes # 2.1 Monocytes # 0.5 Eosinophils # 0.0 Basophils # 0.0 Nucleated Red Blood Cells # 0.1 H Consultation Date/Type/Reason Admit Date/Time Apr 25, 2018 at 14:37 Initial Consult Date 04/26/18 Type of Consult ID Requesting Provider: RUSS JEROME MD Exam/Review of Systems Vital Signs Vitals Vital Signs Date Temp Pulse Resp B/P (MAP) Pulse Ox O2 O2 Flow FiO2 Time Delivery Rate 06/14/18 97.8 96 18 98/67 (77) 93 Room Air 07:51 06/13/18 2.0 01:22 Intake and Output 12/06/13/18 06/14/18 1515:00 23:00 07:00 IntakeIntake Total 520 ml 120 ml 700 ml BalanceBalance 520 ml 120 ml 700 ml Medications Medications Current Medications Anastrozole (Arimidex) 1 mg DAILY PO Last administered on 06/14/18 08:51; Admin Dose 1 MG; Start 04/25/18 at 19:00 Zolpidem Tartrate (Ambien) 10 mg HS PRN PO INSOMNIA; Start 04/25/18 at 23:30 Lorazepam (Ativan) 0.5 mg TID PRN PO ANXIETY Last administered on 06/13/18 23:07; Admin Dose 0.5 MG; Start 04/25/18 at 23:30 Magnesium Hydroxide (Milk Of Mag) 30 ml DAILY PRN PO CONSTIPATION Last administered on 06/10/18 09:07; Admin Dose 30 ML; Start 04/27/18 at 21:00 Enoxaparin Sodium (Lovenox) 40 mg DAILY SC Last administered on 05/27/18 09:25; Admin Dose 40 MG; Start 05/24/18 at 09:00; Status Hold Acetaminophen (Tylenol Tab) 500 mg Q6H PRN PO MILD PAIN(1-3)OR ELEVATED TEMP Last administered on 06/02/18at 23:59; Admin Dose 500 MG; Start 05/30/18 at 20:30 Cholecalciferol (Vitamin D) 4,000 unit DAILY PO Last administered on 06/14/18 08:49; Admin Dose 4,000 UNIT; Start 06/02/18 at 09:00 Oxycodone HCl (Oxycontin) 20 mg BID PO Last administered on 06/14/18 08:51; Admin Dose 20 MG; Start 06/03/18 at 21:00 Morphine Sulfate (morphine) 9 mg Q4H PRN PO SEVERE PAIN LEVEL 7-10 Last administered on 06/14/18 05:31; Admin Dose 9 MG; Start 06/04/18 at 10:00 Sodium Chloride (Nacl) 1 gm BID PO Last administered on 06/14/18 08:49; Admin Dose 1 GM; Start 06/11/18 at 21:00 Spironolactone (Aldactone) 25 mg BID DIURETICS PO Last administered on 06/14/18 05:31; Admin Dose 25 MG; Start 06/11/18 at 18:00 Carvedilol (Coreg) 3.125 mg BID PO Last administered on 06/13/18at 21:36; Admin Dose 3.125 MG; Start 06/11/18 at 13:30 YUAN ROMERO NP Jun 14, 2018 11:23
[2018-06-14] MEDS: MAGNESIUM HYDROXIDE 30ML CUP PO PRN (12:39)
--- NOTE | 2018-06-14 14:35 | CONS ---
Date/Time of Note Date/Time of Note DATE: 06/14/18 TIME: 14:33 Assessment/Plan Assessment/Plan Hospital Course IMP: 1.CHF-diastolic acute on chronic. Reasonable volume status. laying flat EF 55% by echo this admit 2.HTN-currently borderline hypotension 3.Breast CA 4.anemia 5.Hyponatremia-improved 6.Compression fractures 7. UTI s/p course abx REcc: -Continue coreg as tolerated only and follow BP closely -Continue aldactone and follow volume status -s/p abx course, f/u cx data -ongoing oncology eval Result Diagram: 06/14/18 0439 06/12/18 0426 Results 24hrs Laboratory Tests Test 06/14/18 04:39 White Blood Count 3.8 L Red Blood Count 2.53 L Hemoglobin 7.7 L Hematocrit 25.4 L Mean Corpuscular Volume 100.4 Mean Corpuscular Hemoglobin 30.4 Mean Corpuscular Hemoglobin Concent 30.3 L Red Cell Distribution Width 19.2 H Platelet Count 191 # Mean Platelet Volume 10.0 Immature Granulocytes % 2.100 H Neutrophils % 27.3 L Lymphocytes % 55.6 H Monocytes % 14.2 H Eosinophils % 0.0 Basophils % 0.8 Nucleated Red Blood Cells % 2.9 H Immature Granulocytes # 0.080 H Neutrophils # 1.0 L Lymphocytes # 2.1 Monocytes # 0.5 Eosinophils # 0.0 Basophils # 0.0 Nucleated Red Blood Cells # 0.1 H Consultation Date/Type/Reason Admit Date/Time Apr 25, 2018 at 14:37 Initial Consult Date 04/26/18 Type of Consult cardiology Reason for Consultation CHF Requesting Provider: RUSS JEROME MD Exam/Review of Systems Vital Signs Vitals Vital Signs Date Temp Pulse Resp B/P (MAP) Pulse Ox O2 O2 Flow FiO2 Time Delivery Rate 06/14/18 97.8 96 18 98/67 (77) 93 Room Air 07:51 06/13/18 2.0 01:22 Intake and Output 06/13/18 06/13/18 06/14/18 1414:59 22:59 06:59 IntakeIntake Total 520 ml 120 ml 700 ml BalanceBalance 520 ml 120 ml 700 ml Exam Review of Systems: CONSTITUTIONAL: No fevers, chills. PULMONARY: No sob CARDIOVASCULAR: No chest pain/palpitations GASTROINTESTINAL: No nausea/vomiting. GENITOURINARY: No hematuria/dysuria. MUSCULOSKELETAL: No myagias/arthalgias. PSYCHIATRIC: The patient denies depression. NEUROLOGIC: No weakness Constitutional: alert Psych: no complaints Head: normocephalic ENMT: mucosa pink and moist Neck: supple, jvd (9 cm water) Respiratory: diminished breath sounds (at bases/B) Cardiovascular: regular rate and rhythm Gastrointestinal: soft, non-tender Musculoskeletal: muscle tone (normal) Extremities: edema (none) 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: other (No focal deficits) Medications Medications Current Medications Anastrozole (Arimidex) 1 mg DAILY PO Last administered on 06/14/18 08:51; Admin Dose 1 MG; Start 04/25/18 at 19:00 Zolpidem Tartrate (Ambien) 10 mg HS PRN PO INSOMNIA; Start 04/25/18 at 23:30 Lorazepam (Ativan) 0.5 mg TID PRN PO ANXIETY Last administered on 06/13/18 23:07; Admin Dose 0.5 MG; Start 04/25/18 at 23:30 Magnesium Hydroxide (Milk Of Mag) 30 ml DAILY PRN PO CONSTIPATION Last administered on 06/14/18 12:39; Admin Dose 30 ML; Start 04/27/18 at 21:00 Enoxaparin Sodium (Lovenox) 40 mg DAILY SC Last administered on 05/27/18 09:25; Admin Dose 40 MG; Start 05/24/18 at 09:00; Status Hold Acetaminophen (Tylenol Tab) 500 mg Q6H PRN PO MILD PAIN(1-3)OR ELEVATED TEMP Last administered on 06/02/18 23:59; Admin Dose 500 MG; Start 05/30/18 at 20:30 Cholecalciferol (Vitamin D) 4,000 unit DAILY PO Last administered on 06/14/18 08:49; Admin Dose 4,000 UNIT; Start 06/02/18 at 09:00 Oxycodone HCl (Oxycontin) 20 mg BID PO Last administered on 06/14/18 08:51; Admin Dose 20 MG; Start 06/03/18 at 21:00 Morphine Sulfate (morphine) 9 mg Q4H PRN PO SEVERE PAIN LEVEL 7-10 Last adm inistered on 06/14/18 11:25; Admin Dose 9 MG; Start 06/04/18 at 10:00 Sodium Chloride (Nacl) 1 gm BID PO Last administered on 06/14/18at 08:49; Admin Dose 1 GM; Start 06/11/18 at 21:00 Spironolactone (Aldactone) 25 mg BID DIURETICS PO Last administered on 06/14/18at 05:31; Admin Dose 25 MG; Start 06/11/18 at 18:00 Carvedilol (Coreg) 3.125 mg BID PO Last administered on 06/13/18at 21:36; Admin Dose 3.125 MG; Start 06/11/18 at 13:30 KAMILA TERESA Jun 14, 2018 14:35
[2018-06-14 18:35] VITALS: BP 98/64
[2018-06-14 19:42] VITALS: BP 102/60; PULSE 98; RESP 18
[2018-06-14] MEDS: LORAZEPAM 0.5 MG TAB PO PRN (21:26)
[2018-06-15] MEDS: morphine LIQ (10 MG/5 ML) CUP PO PRN ×6 (01:45→22:25)
[2018-06-15 01:57] VITALS: BP 113/57; PULSE 101; RESP 18
[2018-06-15] MEDS: SPIRONOLACTONE 25 MG TAB PO SCH ×2 (05:50→18:03)
[2018-06-15 07:37] VITALS: BP 103/57; PULSE 92; RESP 18
[2018-06-15] MEDS: oxyCODONE (CR) 20 MG TAB [oxyCONTIN] PO SCH ×2 (09:31→21:04)
[2018-06-15] MEDS: SODIUM CHLORIDE 1 GM TAB PO SCH ×2 (09:31→21:03)
[2018-06-15] MEDS: ANASTROZOLE 1 MG TAB PO SCH (09:32)
[2018-06-15] MEDS: CHOLECALCIFEROL 2,000 UNIT CAP PO SCH (09:33)
[2018-06-15 14:00] VITALS: BP 98/60; PULSE 89; RESP 18
--- NOTE | 2018-06-15 16:02 | CONS ---
Date/Time of Note Date/Time of Note DATE: 06/15/18 TIME: 16:00 Assessment/Plan Assessment/Plan Hospital Course IMP: 1.CHF-diastolic acute on chronic. Reasonable volume status. laying flat EF 55% by echo this admit 2.HTN-currently borderline hypotension 3.Breast CA 4.anemia 5.Hyponatremia-improved 6.Compression fractures 7. UTI s/p course abx REcc: -Continue coreg as tolerated only and follow BP closely -Continue aldactone and follow volume status -Follow NA closely on salt tabs -s/p abx course, f/u cx data -ongoing oncology eval Result Diagram: 06/15/18 0438 06/12/18 0426 Results 24hrs Laboratory Tests Test 06/15/18 04:38 White Blood Count 2.6 #L Red Blood Count 3.58 #L Hemoglobin 11.3 #L Hematocrit 35.2 #L Mean Corpuscular Volume 98.3 Mean Corpuscular Hemoglobin 31.6 Mean Corpuscular Hemoglobin Concent 32.1 Red Cell Distribution Width 19.3 H Platelet Count 155 Mean Platelet Volume 9.6 Immature Granulocytes % 0.400 Neutrophils % 29.8 L Lymphocytes % 55.4 H Monocytes % 13.2 H Eosinophils % 0.0 Basophils % 1.2 Nucleated Red Blood Cells % 2.7 H Immature Granulocytes # 0.010 Neutrophils # 0.8 L Lymphocytes # 1.4 Monocytes # 0.3 Eosinophils # 0.0 Basophils # 0.0 Nucleated Red Blood Cells # 0.1 H Consultation Date/Type/Reason Admit Date/Time Apr 25, 2018 at 14:37 Initial Consult Date 04/26/18 Type of Consult cardiology Reason for Consultation CHF Requesting Provider: RUSS JEROME MD Exam/Review of Systems Vital Signs Vitals Vital Signs Date Temp Pulse Resp B/P (MAP) Pulse Ox O2 O2 Flow FiO2 Time Delivery Rate 06/15/18 98.0 89 18 98/60 (73) 94 14:00 06/15/18 Nasal 2.0 01:57 Cannula Intake and Output 06/14/18 06/14/18 06/15/18 1515:00 23:00 07:00 IntakeIntake Total 250 ml OutputOutput Total 200 ml BalanceBalance 50 ml Exam Review of Systems: CONSTITUTIONAL: No fevers, chills. PULMONARY: No sob CARDIOVASCULAR: No chest pain/palpitations GASTROINTESTINAL: No nausea/vomiting. GENITOURINARY: No hematuria/dysuria. MUSCULOSKELETAL: No myagias/arthalgias. PSYCHIATRIC: The patient denies depression. NEUROLOGIC: No weakness Constitutional: alert Psych: no complaints Head: normocephalic ENMT: mucosa pink and moist Neck: supple, jvd (9 cm water) Respiratory: diminished breath sounds (at bases/B) Cardiovascular: regular rate and rhythm Gastrointestinal: soft, non-tender Musculoskeletal: muscle tone (normal) Extremities: edema (none) 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: other (No focal deficits) Medications Medications Current Medications Anastrozole (Arimidex) 1 mg DAILY PO Last administered on 06/15/18 09:32; Admin Dose 1 MG; Start 04/25/18 at 19:00 Zolpidem Tartrate (Ambien) 10 mg HS PRN PO INSOMNIA; Start 04/25/18 at 23:30 Lorazepam (Ativan) 0.5 mg TID PRN PO ANXIETY Last administered on 06/14/18 21:26; Admin Dose 0.5 MG; Start 04/25/18 at 23:30 Magnesium Hydroxide (Milk Of Mag) 30 ml DAILY PRN PO CONSTIPATION Last administered on 06/14/18 12:39; Admin Dose 30 ML; Start 04/27/18 at 21:00 Enoxaparin Sodium (Lovenox) 40 mg DAILY SC Last administered on 05/27/18 09:25; Admin Dose 40 MG; Start 05/24/18 at 09:00; Status Hold Acetaminophen (Tylenol Tab) 500 mg Q6H PRN PO MILD PAIN(1-3)OR ELEVATED TEMP Last administered on 06/02/18 23:59; Admin Dose 500 MG; Start 05/30/18 at 20:30 Cholecalciferol (Vitamin D) 4,000 unit DAILY PO Last administered on 06/15/18 09:33; Admin Dose 4,000 UNIT; Start 06/02/18 at 09:00 Oxycodone HCl (Oxycontin) 20 mg BID PO Last administered on 06/15/18 09:31; Admin Dose 20 MG; Start 06/03/18 at 21:00 Morphine Sulfate (morphine) 9 mg Q4H PRN PO SEVERE PAIN LEVEL 7-10 Last administered on 06/15/18 14:30; Admin Dose 9 MG; Start 06/04/18 at 10:00 Sodium Chloride (Nacl) 1 gm BID PO Last administered on 06/15/18at 09:31; Admin Dose 1 GM; Start 06/11/18 at 21:00 Spironolactone (Aldactone) 25 mg BID DIURETICS PO Last administered on at 05:50; Admin Dose 25 MG; Start 06/11/18 at 18:00 Carvedilol (Coreg) 3.125 mg BID PO Last administered on 06/15/18at 09:33; Admin Dose 3.125 MG; Start 06/11/18 at 13:30 KAMILA TERESA Jun 15, 2018 16:02
[2018-06-15] MEDS: MAGNESIUM HYDROXIDE 30ML CUP PO PRN ×2 (18:34→22:24)
[2018-06-15 19:25] VITALS: BP 94/67; PULSE 99; RESP 18
--- NOTE | 2018-06-15 22:03 | PN ---
Date/Time of Note Date/Time of Note DATE: 06/15/18 TIME: 21:58 Assessment/Plan VTE Prophylaxis Risk score (from Ns)>0 risk: 5 SCD applied (from Ns): Yes Pharmacological prophylaxis: LMWH Lines/Catheters IV Catheter Type (from Nrs): vishal cath maintain Central line still needed: No Urinary Cath still in place: No Assessment/Plan Assessment/Plan 1. Cancer of the left breast. Exact type at this time unknown.MULTIPLE BONY METS, PULMONARY METS 2. Severe pain in the interscapular and lumbar sacral area most probably metastatic lesion possible femoral fracture. pathologic fracture of T9 with 60% of loss of height. Neurosurgical consult planned. 3. Obesity. 4. Weight loss 60 pounds during the last 2 years by diet 5. PMS. 6. Myopia. 7. Anemia chronic disease. 8. Anxiety disorder. 9. Posttraumatic stress disorder. 10. Pain in the left forearm with a history of fracture of ulna and radius. 11. Tachycardia 12. Hypoxemia at night marginal improved after 2 L of nasal cannula oxygen. 13. Process at night. 14. 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 15. Pain syndrome. 16. Hyponatremia 17. Leukopenia 18. Neutropenia with occasional fever and chills. Hold discharge, until she is stable. 19. Hypoalbuminemia 20.Right sided cp after catheter incertion and correction. 21. Increased edema both lower extremities with hypotension. Result Diagram: 06/15/18 0438 06/12/18 0426 Results 24hrs Laboratory Tests Test 06/15/18 04:38 White Blood Count 2.6 #L Red Blood Count 3.58 #L Hemoglobin 11.3 #L Hematocrit 35.2 #L Mean Corpuscular Volume 98.3 Mean Corpuscular Hemoglobin 31.6 Mean Corpuscular Hemoglobin Concent 32.1 Red Cell Distribution Width 19.3 H Platelet Count 155 Mean Platelet Volume 9.6 Immature Granulocytes % 0.400 Neutrophils % 29.8 L Lymphocytes % 55.4 H Monocytes % 13.2 H Eosinophils % 0.0 Basophils % 1.2 Nucleated Red Blood Cells % 2.7 H Immature Granulocytes # 0.010 Neutrophils # 0.8 L Lymphocytes # 1.4 Monocytes # 0.3 Eosinophils # 0.0 Basophils # 0.0 Nucleated Red Blood Cells # 0.1 H Subjective 24 Hr Interval Summary Free Text/Dictation Decreased energy, decreased sob. All my movements are worsening a pain. Constitutional: poor po, requiring O2 Eyes: No no complaints, No pain, No discharge, No redness, No visual change, No other ENT: No no complaints, No bleeding, No pain, No congestion, No discharge, No dysphagia, No sore throat, No other Respiratory: shortness of breath; No no complaints, No pain, No cough, No pleuritic pain, No sputum, No wheezing, No other Cardiovascular: edema (mild.), orthopenea, palpitations Gastrointestinal: constipation, decreased appetite, flatus, passing stool; No no complaints, No pain, No blood, No diarrhea, No nausea, No vomiting, No other Genitourinary: dysuria; No no complaints, No bleeding, No discharge, No flank pain, No hematuria, No other Musculoskeletal: back pain, bone/joint pain, neck pain; No no complaints, No restricted range of motion, No swelling, No other Skin: No no complaints, No bruising, No erythema, No laceration, No pruritis, No rash, No skin lesions, No other Exam/Review of Systems Vital Signs Vitals Vital Signs Date Temp Pulse Resp B/P (MAP) Pulse Ox O2 O2 Flow FiO2 Time Delivery Rate 06/15/18 98.8 99 18 94/67 (76) 90 19:25 06/15/18 Nasal 2.0 01:57 Cannula Intake and Output 06/14/18 06/14/18 06/15/18 1515:00 23:00 07:00 IntakeIntake Total 250 ml OutputOutput Total 200 ml BalanceBalance 50 ml Exam Constitutional: alert, oriented, well developed, distress, obese; No non-verbal, No frail, No other Psych: anxiety; No no complaints, No nl mood/affect, No confusion, No depression, No suicidal, No other Head: normocephalic, atraumatic; No lacerations, No hematomas, No other Eyes: EOMI, nl lids, PERRL, icteric; No nl conjunctiva, No nl sclera, No fundi, disc, No other ENMT: nl external ears & nose Neck: jvd, bruits, nuchal rigidity; No supple, No non-tender, No masses, No thyromegaly, No other Respiratory: normal air movement, congested cough, diminished breath sounds; No clear to auscultation, No crackles/rales, No intercostal retraction, No labored breathing, No respirations, No tactile fremitus, No wheezing, No other Cardiovascular: bruits, edema, jugular venous distention (JVD), systolic murmur Gastrointestinal: soft, ascites; No nl liver, spleen, No non-tender, No bowel sounds, No distended, No firm, No hepatomegaly, No mass, No rebound or guarding, No splenomegaly, No surgical scars, No tender, No other Genitourinary - Female: CVA tenderness; No nl adnexae, No nl external genitalia, No CMT, No uterus, No other Extremities: normal pulses 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: 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 SERVICES DIRECTOR 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; No nl mental status, No nl speech, No nl strength, No confused, No DTR's symmetric, No focal weakness, No lethargic, No numbness, No reflexes, No unresponsive, No other Skin: nl turgor; No rash or lesions, No diaphoresis, No ecchymosis, No laceration, No puncture, No other Lymph: nl lymph nodes; No enlarged, No nontender, No other Medications Medications Current Medications Anastrozole (Arimidex) 1 mg DAILY PO Last administered on 06/15/18at 09:32; Admin Dose 1 MG; Start 04/25/18 at 19:00 Zolpidem Tartrate (Ambien) 10 mg HS PRN PO INSOMNIA; Start 04/25/18 at 23:30 Lorazepam (Ativan) 0.5 mg TID PRN PO ANXIETY Last administered on 06/14/18at 21:26; Admin Dose 0.5 MG; Start 04/25/18 at 23:30 Magnesium Hydroxide (Milk Of Mag) 30 ml DAILY PRN PO CONSTIPATION Last administered on 06/15/18at 18:34; Admin Dose 30 ML; Start 04/27/18 at 21:00 Enoxaparin Sodium (Lovenox) 40 mg DAILY SC Last administered on 05/27/18at 09:25; Admin Dose 40 MG; Start 05/24/18 at 09:00; Status Hold Acetaminophen (Tylenol Tab) 500 mg Q6H PRN PO MILD PAIN(1-3)OR ELEVATED TEMP Last administered on 06/02/18at 23:59; Admin Dose 500 MG; Start 05/30/18 at 20:30 Cholecalciferol (Vitamin D) 4,000 unit DAILY PO Last administered on 06/15/18 09:33; Admin Dose 4,000 UNIT; Start 06/02/18 at 09:00 Oxycodone HCl (Oxycontin) 20 mg BID PO Last administered on 06/15/18 21:04; Admin Dose 20 MG; Start 06/03/18 at 21:00 Morphine Sulfate (morphine) 9 mg Q4H PRN PO SEVERE PAIN LEVEL 7-10 Last administered on 06/15/18 18:34; Admin Dose 9 MG; Start 06/04/18 at 10:00 Sodium Chloride (Nacl) 1 gm BID PO Last administered on 06/15/18 21:03; Admin Dose 1 GM; Start 06/11/18 at 21:00 Spironolactone (Aldactone) 25 mg BID DIURETICS PO Last administered on 06/15/18 18:03; Admin Dose 25 MG; Start 06/11/18 at 18:00 Carvedilol (Coreg) 3.125 mg BID PO Last administered on 06/15/18 09:33; Admin Dose 3.125 MG; Start 06/11/18 at 13:30 RUSS JEROME MD Jun 15, 2018 22:03
[2018-06-15] MEDS: LORAZEPAM 0.5 MG TAB PO PRN (22:24)
[2018-06-16] MEDS: morphine LIQ (10 MG/5 ML) CUP PO PRN ×5 (02:28→22:10)
[2018-06-16 02:45] VITALS: BP 97/52; PULSE 99; RESP 18
[2018-06-16] MEDS: SPIRONOLACTONE 25 MG TAB PO SCH ×2 (06:25→18:00)
[2018-06-16 08:02] VITALS: BP 97/54; PULSE 101; RESP 16
[2018-06-16] MEDS: oxyCODONE (CR) 20 MG TAB [oxyCONTIN] PO SCH ×2 (09:59→21:37)
[2018-06-16] MEDS: CHOLECALCIFEROL 2,000 UNIT CAP PO SCH (09:59)
[2018-06-16] MEDS: ANASTROZOLE 1 MG TAB PO SCH (10:00)
[2018-06-16 14:24] VITALS: BP 124/62; PULSE 101; RESP 16
--- NOTE | 2018-06-16 15:02 | CONS ---
Date/Time of Note Date/Time of Note DATE: 06/16/18 TIME: 15:01 Assessment/Plan Assessment/Plan Hospital Course IMP: 1.CHF-diastolic acute on chronic. Reasonable volume status. laying flat EF 55% by echo this admit 2.HTN-currently borderline hypotension 3.Breast CA 4.anemia 5.Hyponatremia-improved 6.Compression fractures 7. UTI s/p course abx REcc: -Continue coreg as tolerated only and follow BP closely -Continue aldactone and follow volume status and will start gentle lasix diuresis -Follow NA closely on salt tabs -s/p abx course, f/u cx data -ongoing oncology eval Result Diagram: 06/16/18 0427 06/12/18 0426 Results 24hrs Laboratory Tests Test 06/16/18 04:27 White Blood Count 4.0 #L Red Blood Count 2.50 #L Hemoglobin 7.9 #L Hematocrit 25.6 #L Mean Corpuscular Volume 102.4 H Mean Corpuscular Hemoglobin 31.6 Mean Corpuscular Hemoglobin Concent 30.9 L Red Cell Distribution Width 19.0 H Platelet Count 224 # Mean Platelet Volume 9.7 Immature Granulocytes % 0.500 H Neutrophils % 34.5 L Lymphocytes % 50.6 Monocytes % 13.1 H Eosinophils % 0.0 Basophils % 1.3 Nucleated Red Blood Cells % 1.3 H Immature Granulocytes # 0.020 Neutrophils # 1.4 L Lymphocytes # 2.0 Monocytes # 0.5 Eosinophils # 0.0 Basophils # 0.1 Nucleated Red Blood Cells # 0.1 H Consultation Date/Type/Reason Admit Date/Time Apr 25, 2018 at 14:37 Initial Consult Date 04/26/18 Type of Consult cardiology Reason for Consultation CHF Requesting Provider: RUSS JEROME MD Exam/Review of Systems Vital Signs Vitals Vital Signs Date Temp Pulse Resp B/P (MAP) Pulse Ox O2 O2 Flow FiO2 Time Delivery Rate 06/16/18 97.7 101 16 124/62 86 14:24 (82) 06/15/18 Nasal 2.0 01:57 Cannula Intake and Output 06/15/18 06/15/18 06/16/18 1515:00 23:00 07:00 IntakeIntake Total 200 ml 400 ml BalanceBalance 200 ml 400 ml Exam Review of Systems: CONSTITUTIONAL: No fevers, chills. PULMONARY: No sob CARDIOVASCULAR: No chest pain/palpitations GASTROINTESTINAL: No nausea/vomiting. GENITOURINARY: No hematuria/dysuria. MUSCULOSKELETAL: No myagias/arthalgias. PSYCHIATRIC: The patient denies depression. NEUROLOGIC: No weakness Constitutional: alert Psych: no complaints Head: normocephalic ENMT: mucosa pink and moist Neck: supple, jvd (9 cm water) Respiratory: diminished breath sounds Cardiovascular: regular rate and rhythm Gastrointestinal: soft, non-tender Musculoskeletal: muscle tone (normal) Extremities: pitting pedal edema (bilateral) 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: other (No focal deficits) Medications Medications Current Medications Anastrozole (Arimidex) 1 mg DAILY PO Last administered on 06/16/18 10:00; Admin Dose 1 MG; Start 04/25/18 at 19:00 Zolpidem Tartrate (Ambien) 10 mg HS PRN PO INSOMNIA; Start 04/25/18 at 23:30 Lorazepam (Ativan) 0.5 mg TID PRN PO ANXIETY Last administered on 06/15/18 22:24; Admin Dose 0.5 MG; Start 04/25/18 at 23:30 Magnesium Hydroxide (Milk Of Mag) 30 ml DAILY PRN PO CONSTIPATION Last administered on 06/15/18 22:24; Admin Dose 30 ML; Start 04/27/18 at 21:00 Enoxaparin Sodium (Lovenox) 40 mg DAILY SC Last administered on 05/27/18 09:25; Admin Dose 40 MG; Start 05/24/18 at 09:00; Status Hold Acetaminophen (Tylenol Tab) 500 mg Q6H PRN PO MILD PAIN(1-3)OR ELEVATED TEMP Last administered on 06/02/18 23:59; Admin Dose 500 MG; Start 05/30/18 at 20:30 Cholecalciferol (Vitamin D) 4,000 unit DAILY PO Last administered on 06/16/18 09:59; Admin Dose 4,000 UNIT; Start 06/02/18 at 09:00 Oxycodone HCl (Oxycontin) 20 mg BID PO Last administered on 06/16/18 09:59; Admin Dose 20 MG; Start 06/03/18 at 21:00 Morphine Sulfate (morphine) 9 mg Q4H PRN PO SEVERE PAIN LEVEL 7-10 Last administered on 12/30/18at 11:30; Admin Dose 9 MG; Start 06/04/18 at 10:00 Spironolactone (Aldactone) 25 mg BID DIURETICS PO Last administered on 06/16/18at 06:25; Admin Dose 25 MG; Start 06/11/18 at 18:00 Carvedilol (Coreg) 3.125 mg BID PO Last administered on 06/16/18at 10:00; Admin Dose 3.125 MG; Start 06/11/18 at 13:30 KAMILA TERESA Jun 16, 2018 15:02
[2018-06-16] MEDS ORDERED: FUROSEMIDE 20 MG INJ IV ONE (15:30)
[2018-06-16] MEDS: MAGNESIUM HYDROXIDE 30ML CUP PO PRN (16:22)
--- NOTE | 2018-06-16 18:59 | PN ---
Date/Time of Note Date/Time of Note DATE: 06/16/18 TIME: 18:53 Assessment/Plan VTE Prophylaxis Risk score (from Ns)>0 risk: 5 SCD applied (from Ns): Yes Pharmacological prophylaxis: LMWH Pharm contraindication: low risk/ambulating Lines/Catheters IV Catheter Type (from [facility]): PORT-A-CATH Central line still needed: Yes Urinary Cath still in place: Yes Reason Cath still needed: other (indicate) (no.) Assessment/Plan Assessment/Plan 1. Cancer of the left breast. Exact type at this time unknown.MULTIPLE BONY METS, PULMONARY METS 2. Severe pain in the interscapular and lumbar sacral area most probably metastatic lesion possible femoral fracture. pathologic fracture of T9 with 60% of loss of height. Neurosurgical consult planned. 3. Obesity. 4. Weight loss 60 pounds during the last 2 years by diet 5. PMS. 6. Myopia. 7. Anemia chronic disease. 8. Anxiety disorder. 9. Posttraumatic stress disorder. 10. Pain in the left forearm with a history of fracture of ulna and radius. 11. Tachycardia 12. Hypoxemia at night marginal improved after 2 L of nasal cannula oxygen. 13. Deconditioning 14. 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 15. Pain syndrome. 16. Hyponatremia- resolved 17. Leukopenia 18. Neutropenia with occasional fever and chills. Hold discharge, until she is stable. 19. Hypoalbuminemia 20.Right sided cp after catheter insertion and correction less dis comfort. 21. Decreased edema both lower extremities with hypotension-improving Result Diagram: Result Diagram: 06/16/18 0427 06/12/18 0426 Results 24hrs Laboratory Tests Test 06/16/18 04:27 White Blood Count 4.0 #L Red Blood Count 2.50 #L Hemoglobin 7.9 #L Hematocrit 25.6 #L Mean Corpuscular Volume 102.4 H Mean Corpuscular Hemoglobin 31.6 Mean Corpuscular Hemoglobin Concent 30.9 L Red Cell Distribution Width 19.0 H Platelet Count 224 # Mean Platelet Volume 9.7 Immature Granulocytes % 0.500 H Neutrophils % 34.5 L Lymphocytes % 50.6 Monocytes % 13.1 H Eosinophils % 0.0 Basophils % 1.3 Nucleated Red Blood Cells % 1.3 H Immature Granulocytes # 0.020 Neutrophils # 1.4 L Lymphocytes # 2.0 Monocytes # 0.5 Eosinophils # 0.0 Basophils # 0.1 Nucleated Red Blood Cells # 0.1 H Subjective 24 Hr Interval Summary Free Text/Dictation Increased frequency of urination. Weakness. Dizziness. Constitutional: improved, poor po, requiring O2; No no complaints, No chills, No diaphoresis, No disoriented, No febrile, No requiring IVF, No other Eyes: No no complaints, No pain, No discharge, No redness, No visual change, No other ENT: congestion; No no complaints, No bleeding, No pain, No discharge, No dysphagia, No sore throat, No other Respiratory: pleuritic pain, shortness of breath; No no complaints, No pain, No cough, No sputum, No wheezing, No other Cardiovascular: chest pain, edema (mild.); No no complaints, No lightheadedness, No orthopenea, No palpitations, No paroxysmal nocturnal dyspnea, No other Gastrointestinal: flatus, passing stool; No no complaints, No pain, No blood, No constipation, No decreased appetite, No diarrhea, No nausea, No vomiting, No other Genitourinary: dysuria, flank pain; No no complaints, No bleeding, No discharge, No hematuria, No other Musculoskeletal: back pain, bone/joint pain, neck pain; No no complaints, No restricted range of motion, No swelling, No other Skin: bruising, pruritis; No no complaints, No erythema, No laceration, No rash, No skin lesions, No other Neurologic: No no complaints, No confusion, No dizziness, No focal-weakness, No headache, No syncope, No seizure, No other Endocrine: dry skin; No no complaints, No polyuria, No polydypsia, No temp intolerance, No other Lymphatic: No no complaints, No adenopathy, No tender nodes, No lymphadema, No other Psychological: anxiety; No no complaints, No nl mood/affect, No confusion, No depression, No s uicidal, No other Immunologic: No no complaints, No immunodeficiency, No pruritis, No rhinitis, No urticaria, No other Exam/Review of Systems Vital Signs Vitals Vital Signs Date Temp Pulse Resp B/P (MAP) Pulse Ox O2 O2 Flow FiO2 Time Delivery Rate 06/16/18 97.7 101 16 124/62 86 14:24 (82) 06/15/18 Nasal 2.0 01:57 Cannula Intake and Output 06/15/18 06/15/18 06/16/18 1515:00 23:00 07:00 IntakeIntake Total 200 ml 400 ml BalanceBalance 200 ml 400 ml Exam Constitutional: alert, oriented, well developed, frail, obese; No non-verbal, No distress, No other Psych: anxiety, depression; No no complaints, No nl mood/affect, No confusion, No suicidal, No other Head: normocephalic, atraumatic; No lacerations, No hematomas, No other Eyes: nl conjunctiva, EOMI, nl lids, PERRL; No nl sclera, No icteric, No fundi, disc, No other ENMT: nl lips & teeth, nl nasal mucosa & septum, mucosa pink and moist; No nl external ears & nose, No intubated, No tympanic membranes, No other Neck: supple, nuchal rigidity; No non-tender, No jvd, No bruits, No masses, No thyromegaly, No other Respiratory: clear to auscultation, diminished breath sounds; No normal air movement, No congested cough, No crackles/rales, No intercostal retraction, No labored breathing, No respirations, No tactile fremitus, No wheezing, No other Cardiovascular: regular rate and rhythm, bruits, jugular venous distention (JVD); No nl pulses, No diastolic murmur, No edema, No gallop, No irregular rhythm, No murmurs/extra sounds, No rub, No systolic murmur, No S3, No S4, No other Gastrointestinal: soft, nl liver, spleen, bowel sounds; No non-tender, No ascites, No distended, No firm, No hepatomegaly, No mass, No rebound or guarding, No splenomegaly, No surgical scars, No tender, No other Genitourinary - Female: nl adnexae, nl external genitalia; No CMT, No CVA tenderness, No uterus, No other Musculoskeletal: No nl extremities to inspection, No nl gait and stance, No joint tenderness, No muscle tone, No muscle weakness, No range of motion, No spine non-tender, No swelling, No other Extremities: normal pulses; No calf tenderness, No cyanosis, No clubbing, No edema, No pitting pedal edema, No palpable cord, No tenderness, No other 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: 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 EDUCATOR 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 Skin: nl turgor; No rash or lesions, No diaphoresis, No ecchymosis, No laceration, No puncture, No other Lymph: nl lymph nodes; No enlarged, No nontender, No other Medications Medications Current Medications Anastrozole (Arimidex) 1 mg DAILY PO Last administered on 06/16/18 10:00; Admin Dose 1 MG; Start 04/25/18 at 19:00 Zolpidem Tartrate (Ambien) 10 mg HS PRN PO INSOMNIA; Start 04/25/18 at 23:30 Lorazepam (Ativan) 0.5 mg TID PRN PO ANXIETY Last administered on 06/15/18 22:24; Admin Dose 0.5 MG; Start 04/25/18 at 23:30 Magnesium Hydroxide (Milk Of Mag) 30 ml DAILY PRN PO CONSTIPATION Last administered on 06/16/18 16:22; Admin Dose 30 ML; Start 04/27/18 at 21:00 Enoxaparin Sodium (Lovenox) 40 mg DAILY SC Last administered on 05/27/18 09:25; Admin Dose 40 MG; Start 05/24/18 at 09:00; Status Hold Acetaminophen (Tylenol Tab) 500 mg Q6H PRN PO MILD PAIN(1-3)OR ELEVATED TEMP Last administered on 06/02/18 23:59; Admin Dose 500 MG; Start 05/30/18 at 20:30 Cholecalciferol (Vitamin D) 4,000 unit DAILY PO Last administered on 06/16/18 09:59; Admin Dose 4,000 UNIT; Start 06/02/18 at 09:00 Oxycodone HCl (Oxycontin) 20 mg BID PO Last administered on 06/16/18 09:59; Admin Dose 20 MG; Start 06/03/18 at 21:00 Morphine Sulfate (morphine) 9 mg Q4H PRN PO SEVERE PAIN LEVEL 7-10 Last administered on 06/16/18 16:22; Admin Dose 9 MG; Start 06/04/18 at 10:00 Spironolactone (Aldactone) 25 mg BID DIURETICS PO Last administered on 06/16/18 06:25; Admin Dose 25 MG; Start 06/11/18 at 18:00 Carvedilol (Coreg) 3.125 mg BID PO Last administered on 06/16/18at 10:00; Admin Dose 3.125 MG; Start 06/11/18 at 13:30 Furosemide (Lasix) 20 mg DAILY IV ; Start 06/17/18 at 09:00 RUSS JEROME MD Jun 16, 2018 18:59
[2018-06-16 20:56] VITALS: BP 102/58; PULSE 93; RESP 18
[2018-06-17 02:30] VITALS: BP 109/66; PULSE 98; RESP 18
[2018-06-17] MEDS: SPIRONOLACTONE 25 MG TAB PO SCH ×2 (05:36→18:00)
[2018-06-17] MEDS: morphine LIQ (10 MG/5 ML) CUP PO PRN ×2 (06:55→18:16)
[2018-06-17 07:40] VITALS: BP 111/62; PULSE 92; RESP 19
[2018-06-17] MEDS: ONDANSETRON 4 MG INJ IV PRN (07:54)
[2018-06-17] MEDS: oxyCODONE (CR) 20 MG TAB [oxyCONTIN] PO SCH ×2 (09:40→20:46)
[2018-06-17] MEDS: CHOLECALCIFEROL 2,000 UNIT CAP PO SCH (09:40)
[2018-06-17] MEDS: FUROSEMIDE 20 MG INJ IV SCH (09:40)
[2018-06-17] MEDS: ANASTROZOLE 1 MG TAB PO SCH (09:42)
[2018-06-17 09:46] VITALS: BP 115/71; PULSE 104; RESP 18
--- NOTE | 2018-06-17 10:25 | PN ---
Date/Time of Note Date/Time of Note DATE: 06/17/18 TIME: 10:16 Assessment/Plan VTE Prophylaxis Risk score (from Nsg)>0 risk: 6 SCD applied (from Nsg): Yes SCD contraindicated: low risk/ambulating Pharmacological prophylaxis: LMWH Lines/Catheters IV Catheter Type (from Nrsg): portacath Central line still needed: Yes Urinary Cath still in place: Yes Reason Cath still needed: urinary retention Assessment/Plan Assessment/Plan 1. Cancer of the left breast. Exact type at this time unknown.MULTIPLE BONY METS, PULMONARY METS 2. Severe pain in the interscapular and lumbar sacral area most probably metastatic lesion possible femoral fracture. pathologic fracture of T9 with 60% of loss of height. Neurosurgical f/u. 3. Obesity. 4. Weight loss 60 pounds during the last 2 years by diet 5. PMS. 6. Myopia. 7. Anemia chronic disease with a drop of her hematocrit to 27 and regaining to 30 without any measures.. 8. Anxiety disorder. 9. Posttraumatic stress disorder. 10. Pain in the left forearm with a history of fracture of ulna and radius. 11. Tachycardia 12. Hypoxemia at night marginal improved after 2 L of nasal cannula oxygen. 13. Deconditioning 14. 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 15. Pain syndrome. 16. Hyponatremia- resolved 17. Leucopenia- 18. Neutropenia with occasional fever and chills. Hold discharge, until she is stable. 19. Hypoalbuminemia 2.4 now 2.7 20.Right sided cp after catheter insertion and correction less discomfort. 21. Decreased edema both lower extremities with hypotension-improving Result Diagram: Result Diagram: 06/17/18 0841 06/17/18 0841 Results 24hrs Laboratory Tests Test 06/17/18 08:41 White Blood Count 5.9 # Red Blood Count 2.92 L Hemoglobin 9.1 L Hematocrit 29.9 L Mean Corpuscular Volume 102.4 H Mean Corpuscular Hemoglobin 31.2 Mean Corpuscular Hemoglobin Concent 30.4 L Red Cell Distribution Width 19.3 H Platelet Count 256 Mean Platelet Volume 9.1 Immature Granulocytes % 0.500 H Neutrophils % 58.1 Lymphocytes % 29.3 Monocytes % 11.2 H Eosinophils % 0.0 Basophils % 0.9 Nucleated Red Blood Cells % 0.3 H Immature Granulocytes # 0.030 Neutrophils # 3.4 Lymphocytes # 1.7 Monocytes # 0.7 Eosinophils # 0.0 Basophils # 0.1 Nucleated Red Blood Cells # 0.0 Sodium Level 140 Potassium Level 4.1 Chloride Level 104 Carbon Dioxide Level 28 Anion Gap 8 Blood Urea Nitrogen 8 Creatinine 0.48 Est Glomerular Filtrat Rate mL/min > 60 Glucose Level 106 Calcium Level 8.4 Subjective 24 Hr Interval Summary Free Text/Dictation I am weak. Discussed with the patient drop of H&H of hematocrit being 27 yes terday today the level is 30. Patient denies having melena or hematochezia or hematuria. She continues to be edematous and feels worsening of her shortness of breath. Albumin level went up to 2.7. Constitutional: improved, chills, poor po; No no complaints, No diaphoresis, No disoriented, No febrile, No requiring IVF, No requiring O2, No other Eyes: redness (Pale conjunctiva.); No no complaints, No pain, No discharge, No visual change, No other ENT: No no complaints, No bleeding, No pain, No congestion, No discharge, No d ysphagia, No sore throat, No other Respiratory: No no complaints, No pain, No cough, No pleuritic pain, No shortness of breath, No sputum, No wheezing, No other Cardiovascular: edema, lightheadedness (While changing position.), orthopenea, palpitations; No no complaints, No chest pain, No paroxysmal nocturnal dyspnea, No other Gastrointestinal: constipation, decreased appetite, flatus, nausea; No no complaints, No pain, No blood, No diarrhea, No passing stool, No vomiting, No other Genitourinary: dysuria; No no complaints, No bleeding, No discharge, No flank pain, No hematuria, No other Musculoskeletal: back pain, bone/joint pain, neck pain; No no complaints, No restricted range of motion, No swelling, No other Skin: erythema (Paleness.); No no complaints, No bruising, No laceration, No pruritis, No rash, No skin lesions, No other Neurologic: dizziness; No no complaints, No confusion, No focal-weakness, No headache, No syncope, No seizure, No other Endocrine: polyuria, dry skin; No no complaints, No polydypsia, No temp intolerance, No other Lymphatic: No no complaints, No adenopathy, No tender nodes, No lymphadema, No other Psychological: anxiety, depression; No no complaints, No nl mood/affect, No confusion, No suicidal, No other Exam/Review of Systems Vital Signs Vitals Vital Signs Date Temp Pulse Resp B/P (MAP) Pulse Ox O2 O2 Flow FiO2 Time Delivery Rate 06/17/18 104 18 115/71 Room Air 09:46 (86) 06/17/18 98.2 96 07:40 06/15/18 2.0 01:57 Intake and Output 06/16/18 06/16/18 06/17/18 1515:00 23:00 07:00 IntakeIntake Total 660 ml BalanceBalance 660 ml Exam Constitutional: alert, oriented, well developed, distress, frail, obese; No non-verbal, No other Psych: anxiety, depression; No no complaints, No nl mood/affect, No confusion, No suicidal, No other Head: normocephalic, atraumatic; No lacerations, No hematomas, No other Eyes: EOMI, nl lids, PERRL; No nl conjunctiva, No nl sclera, No icteric, No fundi, disc, No other ENMT: nl lips & teeth, nl nasal mucosa & septum; No nl external ears & nose, No mucosa pink and moist, No intubated, No tympanic membranes, No other Neck: jvd, bruits, masses, thyromegaly, nuchal rigidity; No supple, No non-tender, No other Respiratory: normal air movement, diminished breath sounds, intercostal retraction, tactile fremitus; No clear to auscultation, No congested cough, No crackles/rales, No labored breathing, No respirations, No wheezing, No other Cardiovascular: regular rate and rhythm, bruits, edema; No nl pulses, No diastolic murmur, No gallop, No irregular rhythm, No jugular venous distention (JVD), No murmurs/extra sounds, No rub, No systolic murmur, No S3, No S4, No other Gastrointestinal: soft, nl liver, spleen, non-tender, ascites, bowel sounds; No distended, No firm, No hepatomegaly, No mass, No rebound or guarding, No splenomegaly, No surgical scars, No tender, No other Genitourinary - Female: nl adnexae, nl external genitalia; No CMT, No CVA tenderness, No uterus, No other Musculoskeletal: joint tenderness Extremities: edema; No normal pulses, No calf tenderness, No cyanosis, No clubbing, No pitting pedal edema, No palpable cord, No tenderness, No other 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: 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, nl strength (Decreased); No nl mental status, No nl speech, No confused, No DTR's symmetric, No focal weakness, No lethargic, No numbness, No reflexes, No unresponsive, No other Skin: nl turgor; No rash or lesions, No diaphoresis, No ecchymosis, No laceration, No puncture, No other Medications Medications Current Medications Anastrozole (Arimidex) 1 mg DAILY PO Last administered on 06/17/18 09:42; Admin Dose 1 MG; Start 04/25/18 at 19:00 Zolpidem Tartrate (Ambien) 10 mg HS PRN PO INSOMNIA; Start 04/25/18 at 23:30 Lorazepam (Ativan) 0.5 mg TID PRN PO ANXIETY Last administered on 06/15/18 22:24; Admin Dose 0.5 MG; Start 04/25/18 at 23:30 Magnesium Hydroxide (Milk Of Mag) 30 ml DAILY PRN PO CONSTIPATION Last administered on 06/16/18 16:22; Admin Dose 30 ML; Start 04/27/18 at 21:00 Enoxaparin Sodium (Lovenox) 40 mg DAILY SC Last administered on 05/27/18 09:25; Admin Dose 40 MG; Start 05/24/18 at 09:00; Status Hold Acetaminophen (Tylenol Tab) 500 mg Q6H PRN PO MILD PAIN(1-3)OR ELEVATED TEMP Last administered on 06/02/18 23:59; Admin Dose 500 MG; Start 05/30/18 at 20:30 Cholecalciferol (Vitamin D) 4,000 unit DAILY PO Last administered on 06/17/18 09:40; Admin Dose 4,000 UNIT; Start 06/02/18 at 09:00 Oxycodone HCl (Oxycontin) 20 mg BID PO Last administered on 06/17/18 09:40; Admin Dose 20 MG; Start 06/03/18 at 21:00 Morphine Sulfate (morphine) 9 mg Q4H PRN PO SEVERE PAIN LEVEL 7-10 Last administered on 06/17/18 06:55; Admin Dose 9 MG; Start 06/04/18 at 10:00 Spironolactone (Aldactone) 25 mg BID DIURETICS PO Last administered on 06/16/18 06:25; Admin Dose 25 MG; Start 06/11/18 at 18:00 Carvedilol (Coreg) 3.125 mg BID PO Last administered on 06/17/18 09:41; Admin Dose 3.125 MG; Start 06/11/18 at 13:30 Furosemide (Lasix) 20 mg DAILY IV Last administered on 06/17/18 09:40; Admin Dose 20 MG; Start 06/17/18 at 09:00 Ondansetron HCl (Zofran Inj) 4 mg Q6H PRN IV NAUSEA AND/OR VOMITING Last administered on 06/17/18 07:54; Admin Dose 4 MG; Start 06/17/18 at 07:30 RUSS JEROME MD Jun 17, 2018 10:25
--- NOTE | 2018-06-17 15:17 | CONS ---
Date/Time of Note Date/Time of Note DATE: 06/17/18 TIME: 15:15 Assessment/Plan Assessment/Plan Hospital Course IMP: 1.CHF-diastolic acute on chronic. Reasonable volume status. laying flat EF 55% by echo this admit 2.HTN-currently borderline hypotension 3.Breast CA-metastatic to bones 4.anemia 5.Hyponatremia-improved 6.Compression fractures 7. UTI s/p course abx REcc: -Continue coreg as tolerated only and follow BP closely -Continue aldactone/lasix and follow volume status closely -s/p abx course, f/u cx data -ongoing oncology eval Result Diagram: 06/17/18 0841 06/17/18 0841 Results 24hrs Laboratory Tests Test 06/17/18 08:40 06/17/18 08:41 Magnesium Level 2.1 Iron Level 97 Total Iron Binding Capacity 247 Percent Iron Saturation 39 Amylase Level < 30 Lipase 67 White Blood Count 5.9 # Red Blood Count 2.92 L Hemoglobin 9.1 L Hematocrit 29.9 L Mean Corpuscular Volume 102.4 H Mean Corpuscular Hemoglobin 31.2 Mean Corpuscular Hemoglobin Concent 30.4 L Red Cell Distribution Width 19.3 H Platelet Count 256 Mean Platelet Volume 9.1 Immature Granulocytes % 0.500 H Neutrophils % 58.1 Lymphocytes % 29.3 Monocytes % 11.2 H Eosinophils % 0.0 Basophils % 0.9 Nucleated Red Blood Cells % 0.3 H Immature Granulocytes # 0.030 Neutrophils # 3.4 Lymphocytes # 1.7 Monocytes # 0.7 Eosinophils # 0.0 Basophils # 0.1 Nucleated Red Blood Cells # 0.0 Sodium Level 140 Potassium Level 4.1 Chloride Level 104 Carbon Dioxide Level 28 Anion Gap 8 Blood Urea Nitrogen 8 Creatinine 0.48 Est Glomerular Filtrat Rate mL/min > 60 Glucose Level 106 Calcium Level 8.4 Consultation Date/Type/Reason Admit Date/Time Apr 25, 2018 at 14:37 Initial Consult Date 04/26/18 Type of Consult cardiology Reason for Consultation CHF Requesting Provider: RUSS JEROME MD Exam/Review of Systems Vital Signs Vitals Vital Signs Date Temp Pulse Resp B/P (MAP) Pulse Ox O2 O2 Flow FiO2 Time Delivery Rate 06/17/18 104 18 115/71 Room Air 09:46 (86) 06/17/18 98.2 96 07:40 06/15/18 2.0 01:57 Intake and Output 06/16/18 06/16/18 06/17/18 1515:00 23:00 07:00 IntakeIntake Total 660 ml BalanceBalance 660 ml Exam Review of Systems: CONSTITUTIONAL: No fevers, chills. PULMONARY: No sob CARDIOVASCULAR: No chest pain/palpitations GASTROINTESTINAL: No nausea/vomiting. GENITOURINARY: No hematuria/dysuria. MUSCULOSKELETAL: No myagias/arthalgias. PSYCHIATRIC: The patient denies depression. NEUROLOGIC: No weakness Constitutional: alert Psych: no complaints Head: normocephalic ENMT: mucosa pink and moist Neck: supple, jvd (9 cm water) Respiratory: diminished breath sounds Cardiovascular: regular rate and rhythm Gastrointestinal: soft, non-tender Musculoskeletal: muscle tone Extremities: normal pulses, edema (none) 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: other (No focal deficits) Medications Medications Current Medications Anastrozole (Arimidex) 1 mg DAILY PO Last administered on 06/17/18 09:42; Admin Dose 1 MG; Start 04/25/18 at 19:00 Zolpidem Tartrate (Ambien) 10 mg HS PRN PO INSOMNIA; Start 04/25/18 at 23:30 Lorazepam (Ativan) 0.5 mg TID PRN PO ANXIETY Last administered on 06/15/18at 22:24; Admin Dose 0.5 MG; Start 04/25/18 at 23:30 Magnesium Hydroxide (Milk Of Mag) 30 ml DAILY PRN PO CONSTIPATION Last administered on 06/16/18 16:22; Admin Dose 30 ML; Start 04/27/18 at 21:00 Enoxaparin Sodium (Lovenox) 40 mg DAILY SC Last administered on 05/27/18at 09:25; Admin Dose 40 MG; Start 05/24/18 at 09:00; Status Hold Acetaminophen (Tylenol Tab) 500 mg Q6H PRN PO MILD PAIN(1-3)OR ELEVATED TEMP Last administered on 06/02/18at 23:59; Admin Dose 500 MG; Start 05/30/18 at 20:30 Cholecalciferol (Vitamin D) 4,000 unit DAILY PO Last administered on 06/17/18at 09:40; Admin Dose 4,000 UNIT; Start 06/02/18 at 09:00 Oxycodone HCl (Oxycontin) 20 mg BID PO Last administered on 06/17/18 09:40; Admin Dose 20 MG; Start 06/03/18 at 21:00 Morphine Sulfate (morphine) 9 mg Q4H PRN PO SEVERE PAIN LEVEL 7-10 Last administered on 06/17/18 06:55; Admin Dose 9 MG; Start 06/04/18 at 10:00 Spironolactone (Aldactone) 25 mg BID DIURETICS PO Last administered on 06/16/18 06:25; Admin Dose 25 MG; Start 06/11/18 at 18:00 Carvedilol (Coreg) 3.125 mg BID PO Last administered on 06/17/18 09:41; Admin Dose 3.125 MG; Start 06/11/18 at 13:30 Furosemide (Lasix) 20 mg DAILY IV Last administered on 06/17/18 09:40; Admin Dose 20 MG; Start 06/17/18 at 09:00 Ondansetron HCl (Zofran Inj) 4 mg Q6H PRN IV NAUSEA AND/OR VOMITING Last administered on 06/17/18 07:54; Admin Dose 4 MG; Start 06/17/18 at 07:30 KAMILA TERESA Jun 17, 2018 15:17
[2018-06-17 19:45] VITALS: BP 105/64; PULSE 101; RESP 16
[2018-06-18 02:00] VITALS: BP 138/81; PULSE 102; RESP 16
[2018-06-18 06:20] VITALS: BP 121/76
[2018-06-18] MEDS: SPIRONOLACTONE 25 MG TAB PO SCH ×2 (06:28→18:50)
[2018-06-18 07:22] VITALS: BP 104/63; PULSE 95; RESP 16
[2018-06-18] MEDS: morphine LIQ (10 MG/5 ML) CUP PO PRN ×2 (07:27→19:01)
[2018-06-18] MEDS: CHOLECALCIFEROL 2,000 UNIT CAP PO SCH (09:22)
[2018-06-18] MEDS: oxyCODONE (CR) 20 MG TAB [oxyCONTIN] PO SCH ×2 (09:24→20:27)
[2018-06-18] MEDS: FUROSEMIDE 20 MG INJ IV SCH (09:24)
[2018-06-18] MEDS: ANASTROZOLE 1 MG TAB PO SCH (09:25)
[2018-06-18] MEDS ORDERED: ENOXAPARIN 40 MG/0.4 ML SYG SC SCH ×2 (10:00→17:30)
--- NOTE | 2018-06-18 14:35 | CONS ---
Date/Time of Note Date/Time of Note DATE: 06/18/18 TIME: 14:34 Assessment/Plan Assessment/Plan Hospital Course IMP: 1.CHF-diastolic acute on chronic. Reasonable volume status. laying flat EF 55% by echo this admit 2.HTN-currently borderline hypotension 3.Breast CA-metastatic to bones 4.anemia 5.Hyponatremia-improved 6.Compression fractures 7. UTI s/p course abx REcc: -Continue coreg as tolerated only and follow BP closely -Continue aldactone/lasix and follow volume status closely -s/p abx course, f/u cx data -ongoing oncology eval Result Diagram: 06/17/18 0841 06/17/18 0841 Consultation Date/Type/Reason Admit Date/Time Apr 25, 2018 at 14:37 Initial Consult Date 04/26/18 Type of Consult cardiology Reason for Consultation CHF Requesting Provider: RUSS JEROME MD Exam/Review of Systems Vital Signs Vitals Vital Signs Date Temp Pulse Resp B/P (MAP) Pulse Ox O2 O2 Flow FiO2 Time Delivery Rate 06/18/18 98.1 95 16 104/63 07:22 (77) 06/18/18 97 Nasal 2.0 02:00 Cannula Intake and Output 06/17/18 06/17/18 06/18/18 1515:00 23:00 07:00 IntakeIntake Total 240 ml 200 ml BalanceBalance 240 ml 200 ml Exam Review of Systems: CONSTITUTIONAL: No fevers, chills. PULMONARY: No sob CARDIOVASCULAR: No chest pain/palpitations GASTROINTESTINAL: No nausea/vomiting. GENITOURINARY: No hematuria/dysuria. MUSCULOSKELETAL: No myagias/arthalgias. PSYCHIATRIC: The patient denies depression. NEUROLOGIC: No weakness Constitutional: alert, oriented Psych: no complaints Head: normocephalic ENMT: mucosa pink and moist Neck: supple, jvd (9 cm water) Respiratory: diminished breath sounds (at bases/B) Cardiovascular: regular rate and rhythm Gastrointestinal: soft, non-tender Musculoskeletal: muscle tone Extremities: edema (trace/B) 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: other (No focal deficits) Medications Medications Current Medications Anastrozole (Arimidex) 1 mg DAILY PO Last administered on 06/18/18at 09:25; Admin Dose 1 MG; Start 04/25/18 at 19:00 Zolpidem Tartrate (Ambien) 10 mg HS PRN PO INSOMNIA; Start 04/25/18 at 23:30 Lorazepam (Ativan) 0.5 mg TID PRN PO ANXIETY Last administered on 06/15/18 22:24; Admin Dose 0.5 MG; Start 04/25/18 at 23:30 Magnesium Hydroxide (Milk Of Mag) 30 ml DAILY PRN PO CONSTIPATION Last administered on 06/16/18 16:22; Admin Dose 30 ML; Start 04/27/18 at 21:00 Acetaminophen (Tylenol Tab) 500 mg Q6H PRN PO MILD PAIN(1-3)OR ELEVATED TEMP Last administered on 06/02/18at 23:59; Admin Dose 500 MG; Start 05/30/18 at 20:30 Cholecalciferol (Vitamin D) 4,000 unit DAILY PO Last administered on 06/18/18 09:22; Admin Dose 4,000 UNIT; Start 06/02/18 at 09:00 Oxycodone HCl (Oxycontin) 20 mg BID PO Last administered on 06/18/18 09:24; Admin Dose 20 MG; Start 06/03/18 at 21:00 Morphine Sulfate (morphine) 9 mg Q4H PRN PO SEVERE PAIN LEVEL 7-10 Last administered on 06/18/18 07:27; Admin Dose 9 MG; Start 06/04/18 at 10:00 Spironolactone (Aldactone) 25 mg BID DIURETICS PO Last administered on 06/18/18 06:28; Admin Dose 25 MG; Start 06/11/18 at 18:00 Carvedilol (Coreg) 3.125 mg BID PO Last administered on 06/18/18 09:24; Admin Dose 3.125 MG; Start 06/11/18 at 13:30 Furosemide (Lasix) 20 mg DAILY IV Last administered on 06/18/18 09:24; Admin Dose 20 MG; Start 06/17/18 at 09:00 Ondansetron HCl (Zofran Inj) 4 mg Q6H PRN IV NAUSEA AND/OR VOMITING Last administered on 06/17/18 07:54; Admin Dose 4 MG; Start 06/17/18 at 07:30 Enoxaparin Sodium (Lovenox) 40 mg DAILY SC ; Start 06/18/18 at 10:00; Status KAMILA LYNCH Jun 18, 2018 14:35
[2018-06-18 14:58] VITALS: BP 105/70; PULSE 94; RESP 16
[2018-06-18 19:30] VITALS: BP 127/79; PULSE 102; RESP 18
--- NOTE | 2018-06-18 22:22 | PN ---
Date/Time of Note Date/Time of Note DATE: 06/18/18 TIME: 22:15 Assessment/Plan VTE Prophylaxis Risk score (from Nsg)>0 risk: 5 SCD applied (from Nsg): Yes SCD contraindicated: low risk/ambulating Pharmacological prophylaxis: LMWH Lines/Catheters IV Catheter Type (from Nrsg): PORTACATH Central line still needed: Yes Urinary Cath still in place: No Assessment/Plan Assessment/Plan 1. Cancer of the left breast. Exact type at this time unknown.MULTIPLE BONY METS, PULMONARY METS 2. Severe pain in the interscapular and lumbar sacral area most probably metastatic lesion possible femoral fracture. pathologic fracture of T9 with 60% of loss of height. Neurosurgical f/u. 3. Obesity. 4. Weight loss 60 pounds during the last 2 years by diet 5. PMS. 6. Myopia. 7. Anemia chronic disease with a drop of her hematocrit to 27 and regaining to 30 without any measures.. 8. Anxiety disorder. 9. Posttraumatic stress disorder. 10. Pain in the left forearm with a history of fracture of ulna and radius. 11. Tachycardia 12. Hypoxemia at night marginal improved after 2 L of nasal cannula oxygen. 13. Deconditioning 14. 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 15. Pain syndrome. 16. Hyponatremia- resolved 17. Leucopenia- 18. Neutropenia with occasional fever and chills. Hold discharge, until she is stable. 19. Hypoalbuminemia 2.4 now 2.7 20.Right sided cp after catheter insertion and correction less d iscomfort. 21. Decreased edema both lower extremities with hypotension-improving On abdominal us:. Limited study as described above. 2. Diffusely heterogeneous liver consistent with multiple masses. 3. Gallstones and sludge in the gallbladder. No evidence of cholecystitis. 4. Proximal abdominal aorta not visualized. 5. Spleen not visualized. 6. Otherwise unremarkable abdomen and retroperitoneum ultrasound. On CZR:1. No significant interval change. 2. Cardiomegaly. 3. Bibasilar opacities may represent atelectasis or infiltrate. 4. Stable left pleural effusion. Result Diagram: 06/18/18 1430 06/17/18 0841 Results 24hrs Laboratory Tests Test 06/18/18 14:30 Hemoglobin 8.9 L Hematocrit 28.4 L Subjective 24 Hr Interval Summary Free Text/Dictation Weakness, back pain, decreased edema of legs in amd and increase in the evening. Constitutional: poor po; No no complaints, No improved, No chills, No diaphoresis, No disoriented, No febrile, No requiring IVF, No requiring O2, No other Eyes: No no complaints, No pain, No discharge, No redness, No visual change, No other ENT: No no complaints, No bleeding, No pain, No congestion, No discharge, No dysphagia, No sore throat, No other Respiratory: shortness of breath; No no complaints, No pain, No cough, No pleuritic pain, No sputum, No wheezing, No other Cardiovascular: chest pain, edema, lightheadedness, orthopenea, palpitations; No no complaints, No paroxysmal nocturnal dyspnea, No other Gastrointestinal: flatus, passing stool; No no complaints, No pain, No blood, No constipation, No decreased appetite, No diarrhea, No nausea, No vomiting, No other Genitourinary: flank pain; No no complaints, No bleeding, No dysuria, No discharge, No hematuria, No other Musculoskeletal: back pain, bone/joint pain, neck pain Skin: No no complaints, No bruising, No erythema, No laceration, No pruritis, No rash, No skin lesions, No other Exam/Review of Systems Vital Signs Vitals Vital Signs Date Temp Pulse Resp B/P (MAP) Pulse Ox O2 O2 Flow FiO2 Time Delivery Rate 06/18/18 98.1 102 18 127/79 94 Room Air 19:30 (95) 06/18/18 2.0 02:00 Intake and Output 06/17/18 06/17/18 06/18/18 1515:00 23:00 07:00 IntakeIntake Total 240 ml 200 ml BalanceBalance 240 ml 200 ml Exam Constitutional: alert, oriented, well developed, distress, obese, other (feels lonely, anxious, tense.) Psych: anxiety; No no complaints, No nl mood/affect, No confusion, No depression, No suicidal, No other Head: normocephalic, atraumatic; No lacerations, No hematomas, No other Eyes: EOMI, nl lids, PERRL; No nl conjunctiva, No nl sclera, No icteric, No fundi, disc, No other ENMT: nl nasal mucosa & septum; No nl external ears & nose, No nl lips & teeth, No mucosa pink and moist, No intubated, No tympanic membranes, No other Neck: supple, bruits, thyromegaly, nuchal rigidity; No non-tender, No jvd, No masses, No other Respiratory: clear to auscultation, normal air movement, diminished breath sounds; No congested cough, No crackles/rales, No intercostal retraction, No labored breathing, No respirations, No tactile fremitus, No wheezing, No other Cardiovascular: regular rate and rhythm, nl pulses; No bruits, No diastolic murmur, No edema, No gallop, No irregular rhythm, No jugular venous distention (JVD), No murmurs/extra sounds, No rub, No systolic murmur, No S3, No S4, No other Gastrointestinal: nl liver, spleen, non-tender, bowel sounds; No soft, No ascites, No distended, No firm, No hepatomegaly, No mass, No rebound or guarding, No splenomegaly, No surgical scars, No tender, No other Extremities: normal pulses, edema; No calf tenderness, No cyanosis, No clubbing, No pitting pedal edema, No palpable cord, No tenderness, No other 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: 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; No nl mental status, No nl speech, No nl strength, No confused, No DTR's symmetric, No focal weakness, No lethargic, No numbness, No reflexes, No unresponsive, No other Skin: nl turgor; No rash or lesions, No diaphoresis, No ecchymosis, No laceration, No puncture, No other Lymph: nl lymph nodes; No enlarged, No nontender, No other Medications Medications Current Medications Anastrozole (Arimidex) 1 mg DAILY PO Last administered on 06/18/18at 09:25; Admin Dose 1 MG; Start 04/25/18 at 19:00 Zolpidem Tartrate (Ambien) 10 mg HS PRN PO INSOMNIA; Start 04/25/18 at 23:30 Lorazepam (Ativan) 0.5 mg TID PRN PO ANXIETY Last administered on 06/15/18at 22:24; Admin Dose 0.5 MG; Start 04/25/18 at 23:30 Magnesium Hydroxide (Milk Of Mag) 30 ml DAILY PRN PO CONSTIPATION Last administered on 06/16/18at 16:22; Admin Dose 30 ML; Start 04/27/18 at 21:00 Acetaminophen (Tylenol Tab) 500 mg Q6H PRN PO MILD PAIN(1-3)OR ELEVATED TEMP Last administered on 06/02/18at 23:59; Admin Dose 500 MG; Start 05/30/18 at 20:30 Cholecalciferol (Vitamin D) 4,000 unit DAILY PO Last administered on 06/18/18 09:22; Admin Dose 4,000 UNIT; Start 06/02/18 at 09:00 Oxycodone HCl (Oxycontin) 20 mg BID PO Last administered on 06/18/18 20:27; Admin Dose 20 MG; Start 06/03/18 at 21:00 Morphine Sulfate (morphine) 9 mg Q4H PRN PO SEVERE PAIN LEVEL 7-10 Last administered on 06/18/18 19:01; Admin Dose 9 MG; Start 06/04/18 at 10:00 Spironolactone (Aldactone) 25 mg BID DIURETICS PO Last administered on 06/18/18 18:50; Admin Dose 25 MG; Start 06/11/18 at 18:00 Carvedilol (Coreg) 3.125 mg BID PO Last administered on 06/18/18 20:28; Admin Dose 3.125 MG; Start 06/11/18 at 13:30 Furosemide (Lasix) 20 mg DAILY IV Last administered on 06/18/18 09:24; Admin Dose 20 MG; Start 06/17/18 at 09:00 Ondansetron HCl (Zofran Inj) 4 mg Q6H PRN IV NAUSEA AND/OR VOMITING Last administered on 06/17/18at 07:54; Admin Dose 4 MG; Start 06/17/18 at 07:30 Enoxaparin Sodium (Lovenox) 40 mg Q24H SC ; Start 06/19/18 at 18:00 RUSS JEROME MD Jun 18, 2018 22:22
[2018-06-19 01:23] VITALS: BP 112/74; PULSE 79; RESP 18
[2018-06-19] MEDS: morphine LIQ (10 MG/5 ML) CUP PO PRN ×4 (01:59→23:22)
[2018-06-19] MEDS: LORAZEPAM 0.5 MG TAB PO PRN ×2 (02:02→23:22)
[2018-06-19] MEDS: SPIRONOLACTONE 25 MG TAB PO SCH ×2 (05:47→19:00)
[2018-06-19 07:59] VITALS: BP 110/72; PULSE 86; RESP 18
[2018-06-19] MEDS: CHOLECALCIFEROL 2,000 UNIT CAP PO SCH (08:43)
[2018-06-19] MEDS: ANASTROZOLE 1 MG TAB PO SCH (08:44)
[2018-06-19] MEDS: FUROSEMIDE 20 MG INJ IV SCH (08:45)
[2018-06-19] MEDS: oxyCODONE (CR) 20 MG TAB [oxyCONTIN] PO SCH ×2 (08:50→20:43)
--- NOTE | 2018-06-19 13:18 | CONS ---
Date/Time of Note Date/Time of Note DATE: 06/19/18 TIME: 13:17 Assessment/Plan Assessment/Plan Hospital Course IMP: 1.CHF-diastolic acute on chronic. Reasonable volume status. laying flat EF 55% by echo this admit 2.HTN-currently borderline hypotension 3.Breast CA-metastatic to bones 4.anemia 5.Hyponatremia-improved 6.Compression fractures 7. UTI s/p course abx REcc: -Continue coreg as tolerated only and follow BP closely -Continue aldactone/lasix and follow volume status closely -s/p abx course, f/u cx data -ongoing oncology eval Result Diagram: 06/19/18 0418 06/19/18 0418 Results 24hrs Laboratory Tests Test 06/18/18 14:30 06/19/18 04:18 Hemoglobin 8.9 L 8.1 L Hematocrit 28.4 L 26.0 L Sodium Level 139 Potassium Level 4.0 Chloride Level 106 Carbon Dioxide Level 30 Anion Gap 3 L Blood Urea Nitrogen 5 L Creatinine 0.55 Est Glomerular Filtrat Rate mL/min > 60 Glucose Level 99 Calcium Level 8.6 Total Bilirubin 0.3 Direct Bilirubin 0.00 Indirect Bilirubin 0.3 Aspartate Amino Transf (AST/SGOT) 30 Alanine Aminotransferase (ALT/SGPT) 22 Alkaline Phosphatase 180 H Total Protein 5.5 L Albumin 2.7 L Globulin 2.80 Albumin/Globulin Ratio 0.96 Consultation Date/Type/Reason Admit Date/Time Apr 25, 2018 at 14:37 Initial Consult Date 04/26/18 Type of Consult cardiology Reason for Consultation CHF Requesting Provider: RUSS JEROME MD Exam/Review of Systems Vital Signs Vitals Vital Signs Date Temp Pulse Resp B/P (MAP) Pulse Ox O2 O2 Flow FiO2 Time Delivery Rate 06/19/18 97.9 86 18 110/72 90 Room Air 07:59 (85) 06/18/18 2.0 02:00 Intake and Output 06/18/18 06/18/18 06/19/18 1414:59 22:59 06:59 IntakeIntake Total 600 ml 640 ml BalanceBalance 600 ml 640 ml Exam Review of Systems: CONSTITUTIONAL: No fevers, chills. PULMONARY: No sob CARDIOVASCULAR: No chest pain/palpitations GASTROINTESTINAL: No nausea/vomiting. GENITOURINARY: No hematuria/dysuria. MUSCULOSKELETAL: No myagias/arthalgias. PSYCHIATRIC: The patient denies depression. NEUROLOGIC: No weakness Constitutional: alert, oriented Psych: no complaints Head: normocephalic ENMT: mucosa pink and moist Neck: supple, jvd (9 cm water) Respiratory: diminished breath sounds Cardiovascular: regular rate and rhythm Gastrointestinal: soft, non-tender Musculoskeletal: muscle tone (normal) Extremities: edema (none) 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: other (NO focal deficits) Medications Medications Current Medications Anastrozole (Arimidex) 1 mg DAILY PO Last administered on 06/19/18 08:44; Admin Dose 1 MG; Start 04/25/18 at 19:00 Zolpidem Tartrate (Ambien) 10 mg HS PRN PO INSOMNIA; Start 04/25/18 at 23:30 Lorazepam (Ativan) 0.5 mg TID PRN PO ANXIETY Last administered on 06/19/18 02:02; Admin Dose 0.5 MG; Start 04/25/18 at 23:30 Magnesium Hydroxide (Milk Of Mag) 30 ml DAILY PRN PO CONSTIPATION Last administered on 06/16/18 16:22; Admin Dose 30 ML; Start 04/27/18 at 21:00 Acetaminophen (Tylenol Tab) 500 mg Q6H PRN PO MILD PAIN(1-3)OR ELEVATED TEMP [place] [facility] administered on 06/02/18 23:59; Admin Dose 500 MG; Start 05/30/18 at 20:30 Cholecalciferol (Vitamin D) 4,000 unit DAILY PO Last administered on 06/19/18 08:43; Admin Dose 4,000 UNIT; Start 06/02/18 at 09:00 Oxycodone HCl (Oxycontin) 20 mg BID PO Last administered on 06/19/18 08:50; Admin Dose 20 MG; Start 06/03/18 at 21:00 Morphine Sulfate (morphine) 9 mg Q4H PRN PO SEVERE PAIN LEVEL 7-10 Last administered on 06/19/18 01:59; Admin Dose 9 MG; Start 06/04/18 at 10:00 Spironolactone (Aldactone) 25 mg BID DIURETICS PO Last administered on 06/19/18 05:47; Admin Dose 25 MG; Start 06/11/18 at 18:00 Carvedilol (Coreg) 3.125 mg BID PO Last administered on 1/2/19at 08:45; Admin Dose 3.125 MG; Start 06/11/18 at 13:30 Furosemide (Lasix) 20 mg DAILY IV Last administered on 06/19/18at 08:45; Admin Dose 20 MG; Start 06/17/18 at 09:00 Ondansetron HCl (Zofran Inj) 4 mg Q6H PRN IV NAUSEA AND/OR VOMITING Last administered on 06/17/18at 07:54; Admin Dose 4 MG; Start 06/17/18 at 07:30 Enoxaparin Sodium (Lovenox) 40 mg Q24H SC ; Start 06/19/18 at 18:00 KAMILA TERESA Jun 19, 2018 13:18
--- NOTE | 2018-06-19 13:41 | CONS ---
Date/Time of Note Date/Time of Note DATE: 06/19/18 TIME: 13:41 Assessment/Plan Assessment/Plan Hospital Course Patient is sleeping looks comfortable no fevers overnight BUN 5 creatinine 0.55 H&H 8.1 and 26 Indwelling: R chest Port-A-Cath 05/29/18 Physical examination: Obese well-developed middle-aged Beninese-speaking woman who is alert in no distress. Head atraumatic normocephalic sclera nonicteric vehicle mucosa pink. Neck is supple chest rise symmetrical breath sounds diminished bases. Heart: S1-S2. Abdomen soft bowel sounds present extremities without cyanosis, left upper extremity with edema Assessment: 1. Status post neutropenic fevers 2. Metastatic breast cancer 3. Status post urinary tract infection 4. Obesity 5. Anasarca Plan: Remains stable, off antibiotics, will reculture if she spikes fever, follow oncology recommendations Result Diagram: 06/19/18 0418 06/19/18 0418 Results 24hrs Laboratory Tests Test 06/18/18 14:30 06/19/18 04:18 Hemoglobin 8.9 L 8.1 L Hematocrit 28.4 L 26.0 L Sodium Level 139 Potassium Level 4.0 Chloride Level 106 Carbon Dioxide Level 30 Anion Gap 3 L Blood Urea Nitrogen 5 L Creatinine 0.55 Est Glomerular Filtrat Rate mL/min > 60 Glucose Level 99 Calcium Level 8.6 Total Bilirubin 0.3 Direct Bilirubin 0.00 Indirect Bilirubin 0.3 Aspartate Amino Transf (AST/SGOT) 30 Alanine Aminotransferase (ALT/SGPT) 22 Alkaline Phosphatase 180 H Total Protein 5.5 L Albumin 2.7 L Globulin 2.80 Albumin/Globulin Ratio 0.96 Consultation Date/Type/Reason Admit Date/Time Apr 25, 2018 at 14:37 Initial Consult Date 04/26/18 Type of Consult ID Requesting Provider: RUSS JEROME MD Exam/Review of Systems Vital Signs Vitals Vital Signs Date Temp Pulse Resp B/P (MAP) Pulse Ox O2 O2 Flow FiO2 Time Delivery Rate 06/19/18 97.9 86 18 110/72 90 Room Air 07:59 (85) 06/18/18 2.0 02:00 Intake and Output 06/18/18 06/18/18 06/19/18 1515:00 23:00 07:00 IntakeIntake Total 600 ml 640 ml BalanceBalance 600 ml 640 ml Medications Medications Current Medications Anastrozole (Arimidex) 1 mg DAILY PO Last administered on 06/19/18 08:44; Admin Dose 1 MG; Start 04/25/18 at 19:00 Zolpidem Tartrate (Ambien) 10 mg HS PRN PO INSOMNIA; Start 04/25/18 at 23:30 Lorazepam (Ativan) 0.5 mg TID PRN PO ANXIETY Last administered on 06/19/18 02:02; Admin Dose 0.5 MG; Start 04/25/18 at 23:30 Magnesium Hydroxide (Milk Of Mag) 30 ml DAILY PRN PO CONSTIPATION Last administered on 06/16/18 16:22; Admin Dose 30 ML; Start 04/27/18 at 21:00 Acetaminophen (Tylenol Tab) 500 mg Q6H PRN PO MILD PAIN(1-3)OR ELEVATED TEMP Last administered on 06/02/18 23:59; Admin Dose 500 MG; Start 05/30/18 at 20:30 Cholecalciferol (Vitamin D) 4,000 unit DAILY PO Last administered on 06/19/18 08:43; Admin Dose 4,000 UNIT; Start 06/02/18 at 09:00 Oxycodone HCl (Oxycontin) 20 mg BID PO Last administered on 06/19/18 08:50; Admin Dose 20 MG; Start 06/03/18 at 21:00 Morphine Sulfate (morphine) 9 mg Q4H PRN PO SEVERE PAIN LEVEL 7-10 Last administered on 06/19/18 01:59; Admin Dose 9 MG; Start 06/04/18 at 10:00 Spironolactone (Aldactone) 25 mg BID DIURETICS PO Last administered on 05:47; Admin Dose 25 MG; Start 06/11/18 at 18:00 Carvedilol (Coreg) 3.125 mg BID PO Last administered on 06/19/18 08:45; Admin Dose 3.125 MG; Start 06/11/18 at 13:30 Furosemide (Lasix) 20 mg DAILY IV Last administered on 06/19/18 08:45; Admin Dose 20 MG; Start 06/17/18 at 09:00 Ondansetron HCl (Zofran Inj) 4 mg Q6H PRN IV NAUSEA AND/OR VOMITING Last administered on 12/31/18at 07:54; Admin Dose 4 MG; Start 06/17/18 at 07:30 Enoxaparin Sodium (Lovenox) 40 mg Q24H SC ; Start 06/19/18 at 18:00 YUAN ROMERO NP Jun 19, 2018 13:41
[2018-06-19 14:00] VITALS: BP 114/71; PULSE 80; RESP 18
[2018-06-19] MEDS: ENOXAPARIN 40 MG/0.4 ML SYG SC SCH (19:00)
[2018-06-19 19:50] VITALS: BP 110/72; PULSE 94; RESP 18
--- NOTE | 2018-06-19 20:34 | PN ---
Date/Time of Note Date/Time of Note DATE: 06/19/18 TIME: 20:30 Assessment/Plan VTE Prophylaxis Risk score (from Nsg)>0 risk: 3 SCD applied (from Nsg): Yes SCD contraindicated: low risk/ambulating Pharmacological prophylaxis: LMWH Lines/Catheters IV Catheter Type (from Nrsg): portacath Central line still needed: Yes Urinary Cath still in place: No Assessment/Plan Assessment/Plan 1. Cancer of the left breast. Exact type at this time unknown.MULTIPLE BONY METS, PULMONARY METS 2. Severe pain in the interscapular and lumbar sacral area most probably metastatic lesion possible femoral fracture. pathologic fracture of T9 with 60% of loss of height. Neurosurgical f/u. 3. Obesity. 4. Weight loss 60 pounds during the last 2 years by diet 5. PMS. 6. Myopia. 7. Anemia chronic disease with a drop of her hematocrit to 27 and regaining to 30 without any measures. Latest results 28. Protonix was added. 8. Anxiety disorder. 9. Posttraumatic stress disorder. 10. Pain in the left forearm with a history of fracture of ulna and radius. 11. Tachycardia 12. Hypoxemia at night marginal improved after 2 L of nasal cannula oxygen. 13. Deconditioning 14. 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 15. Pain syndrome. Today the most painful zone is in the right hip area. X- ray was ordered. 16. Hyponatremia- resolved 17. Leucopenia- 18. Neutropenia with occasional fever and chills. Hold discharge, until she is stable. 19. Hypoalbuminemia 2.4 now 2.7 20.Right sided cp after catheter insertion and correction less discomfort. 21. Decreased edema both lower extremities with hypotension-improving On abdominal us:. Limited study as described above. 2. Diffusely heterogeneous liver consistent with multiple masses. 3. Gallstones and sludge in the gallbladder. No evidence of cholecystitis. 4. Proximal abdominal aorta not visualized. 5. Spleen not visualized. 6. Otherwise unremarkable abdomen and retroperitoneum ultrasound. On CZR:1. No significant interval change. 2. Cardiomegaly. 3. Bibasilar opacities may represent atelectasis or infiltrate. 4. Stable left pleural effusion. Result Diagram: Result Diagram: 06/19/18 0418 06/19/18 0418 Results 24hrs Laboratory Tests Test 1/2/19 04:18 Hemoglobin 8.1 L Hematocrit 26.0 L Sodium Level 139 Potassium Level 4.0 Chloride Level 106 Carbon Dioxide Level 30 Anion Gap 3 L Blood Urea Nitrogen 5 L Creatinine 0.55 Est Glomerular Filtrat Rate mL/min > 60 Glucose Level 99 Calcium Level 8.6 Total Bilirubin 0.3 Direct Bilirubin 0.00 Indirect Bilirubin 0.3 Aspartate Amino Transf (AST/SGOT) 30 Alanine Aminotransferase (ALT/SGPT) 22 Alkaline Phosphatase 180 H Total Protein 5.5 L Albumin 2.7 L Globulin 2.80 Albumin/Globulin Ratio 0.96 Subjective 24 Hr Interval Summary Free Text/Dictation Worsening with pain in the right hip area sometimes switching to a degree of 8 - 9/10. Fearful to walk. Increased edema both lower extremities mainly in the evenings and lower third of both legs. Anorexia refusing to eat yesterday. Constitutional: No no complaints, No improved, No chills, No diaphoresis, No disoriented, No febrile, No poor po, No requiring IVF, No requiring O2, No other Eyes: No no complaints, No pain, No discharge, No redness, No visual change, No other ENT: No no complaints, No bleeding, No pain, No congestion, No discharge, No dysphagia, No sore throat, No other Respiratory: shortness of breath; No no complaints, No pain, No cough, No pleuritic pain, No sputum, No wheezing, No other Cardiovascular: edema, lightheadedness, orthopenea, palpitations; No no complaints, No chest pain, No paroxysmal nocturnal dyspnea, No other Gastrointestinal: constipation, passing stool; No no complaints, No pain, No blood, No decreased appetite, No diarrhea, No flatus, No nausea, No vomiting, No other Genitourinary: No no complaints, No bleeding, No dysuria, No discharge, No flank pain, No hematuria, No other Musculoskeletal: back pain, bone/joint pain, neck pain; No no complaints, No restricted range of motion, No swelling, No other Skin: No no complaints, No bruising, No erythema, No laceration, No pruritis, No rash, No skin lesions, No other Neurologic: headache; No no complaints, No confusion, No dizziness, No focal-weakness, No syncope, No seizure, No other Psychological: anxiety; No no complaints, No nl mood/affect, No confusion, No depression, No suicidal, No other Exam/Review of Systems Vital Signs Vitals Vital Signs Date Temp Pulse Resp B/P (MAP) Pulse Ox O2 O2 Flow FiO2 Time Delivery Rate 06/19/18 98.2 94 18 110/72 95 Room Air 19:50 (85) 06/18/18 2.0 02:00 Intake and Output 06/18/18 06/18/18 06/19/18 1414:59 22:59 06:59 IntakeIntake Total 600 ml 640 ml BalanceBalance 600 ml 640 ml Exam Constitutional: alert, oriented, well developed, distress, frail, obese; No non-verbal, No other Psych: no complaints, nl mood/affect, anxiety, confusion, depression, suicidal, other Head: normocephalic, atraumatic; No lacerations, No hematomas, No other Eyes: EOMI, nl lids; No nl conjunctiva, No nl sclera, No PERRL, No icteric, No fundi, disc, No other ENMT: No nl external ears & nose, No nl lips & teeth, No nl nasal mucosa & septum, No mucosa pink and moist, No intubated, No tympanic membranes, No other Neck: non-tender, jvd; No supple, No bruits, No masses, No thyromegaly, No nuchal rigidity, No other Respiratory: clear to auscultation, normal air movement, diminished breath sounds; No congested cough, No crackles/rales, No intercostal retraction, No labored breathing, No respirations, No tactile fremitus, No wheezing, No other Cardiovascular: nl pulses, edema, systolic murmur; No regular rate and rhythm, No bruits, No diastolic murmur, No gallop, No irregular rhythm, No jugular venous distention (JVD), No murmurs/extra sounds, No rub, No S3, No S4, No other Gastrointestinal: soft, nl liver, spleen, bowel sounds, distended; No non-tender, No ascites, No firm, No hepatomegaly, No mass, No rebound or guarding, No splenomegaly, No surgical scars, No tender, No other Musculoskeletal: nl gait and stance (Patient was changed due to worsening with pain in the right hip. 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[employer]GRAMMER 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, nl speech, nl strength; No nl mental status, No confused, No DTR's symmetric, No focal weakness, No lethargic, No numbness, No reflexes, No unresponsive, No other Skin: nl turgor; No rash or lesions, No diaphoresis, No ecchymosis, No laceration, No puncture, No other Lymph: nl lymph nodes; No enlarged, No nontender, No other Medications Medications Current Medications Anastrozole (Arimidex) 1 mg DAILY PO Last administered on 06/19/18 08:44; Admin Dose 1 MG; Start 04/25/18 at 19:00 Zolpidem Tartrate (Ambien) 10 mg HS PRN PO INSOMNIA; Start 04/25/18 at 23:30 Lorazepam (Ativan) 0.5 mg TID PRN PO ANXIETY Last administered on 06/19/18 02:02; Admin Dose 0.5 MG; Start 04/25/18 at 23:30 Magnesium Hydroxide (Milk Of Mag) 30 ml DAILY PRN PO CONSTIPATION Last administered on 06/16/18 16:22; Admin Dose 30 ML; Start 04/27/18 at 21:00 Acetaminophen (Tylenol Tab) 500 mg Q6H PRN PO MILD PAIN(1-3)OR ELEVATED TEMP Last administered on 06/02/18at 23:59; Admin Dose 500 MG; Start 05/30/18 at 20:30 Cholecalciferol (Vitamin D) 4,000 unit DAILY PO Last administered on 06/19/18 08:43; Admin Dose 4,000 UNIT; Start 06/02/18 at 09:00 Oxycodone HCl (Oxycontin) 20 mg BID PO Last administered on 06/19/18 08:50; Admin Dose 20 MG; Start 06/03/18 at 21:00 Morphine Sulfate (morphine) 9 mg Q4H PRN PO SEVERE PAIN LEVEL 7-10 Last administered on 06/19/18 19:02; Admin Dose 9 MG; Start 06/04/18 at 10:00 Spironolactone (Aldactone) 25 mg BID DIURETICS PO Last administered on 06/19/18 19:00; Admin Dose 25 MG; Start 06/11/18 at 18:00 Carvedilol (Coreg) 3.125 mg BID PO Last administered on 06/19/18 08:45; Admin Dose 3.125 MG; Start 06/11/18 at 13:30 Furosemide (Lasix) 20 mg DAILY IV Last administered on 06/19/18 08:45; Admin Dose 20 MG; Start 06/17/18 at 09:00 Ondansetron HCl (Zofran Inj) 4 mg Q6H PRN IV NAUSEA AND/OR VOMITING Last administered on 06/17/18at 07:54; Admin Dose 4 MG; Start 06/17/18 at 07:30 Enoxaparin Sodium (Lovenox) 40 mg Q24H SC Last administered on 06/19/18 19:00; Admin Dose 40 MG; Start 06/19/18 at 18:00 RUSS JEROME MD Jun 19, 2018 20:34
[2018-06-19] MEDS: ENALAPRIL 2.5 MG TAB PO SCH (22:30)
[2018-06-20 02:10] VITALS: BP 107/60; PULSE 90; RESP 18
[2018-06-20] MEDS: morphine LIQ (10 MG/5 ML) CUP PO PRN ×3 (03:17→22:01)
[2018-06-20] MEDS: SPIRONOLACTONE 25 MG TAB PO SCH (05:45)
[2018-06-20] MEDS: PANTOPRAZOLE (EC) 40 MG TAB PO SCH (05:45)
[2018-06-20] MEDS: MAGNESIUM HYDROXIDE 30ML CUP PO PRN (05:45)
[2018-06-20 08:06] VITALS: BP 99/58; PULSE 97; RESP 18
[2018-06-20] MEDS: CHOLECALCIFEROL 2,000 UNIT CAP PO SCH (10:02)
[2018-06-20] MEDS: oxyCODONE (CR) 20 MG TAB [oxyCONTIN] PO SCH ×2 (10:02→20:29)
[2018-06-20] MEDS: ANASTROZOLE 1 MG TAB PO SCH (10:04)
[2018-06-20] MEDS: ENALAPRIL 2.5 MG TAB PO SCH (10:07)
[2018-06-20] MEDS: FUROSEMIDE 20 MG INJ IV SCH (10:07)
--- NOTE | 2018-06-20 11:56 | PN ---
Date/Time of Note Date/Time of Note DATE: 06/20/18 TIME: 11:55 Assessment/Plan VTE Prophylaxis Risk score (from Nsg)>0 risk: 6 SCD applied (from Nsg): Yes SCD contraindicated: low risk/ambulating Pharmacological prophylaxis: LMWH Pharm contraindication: low risk/ambulating, other (The patient did disclose that she is walking almost an hour a day on the floor and today I let her to go out with the company of hospital staff aid.) Lines/Catheters IV Catheter Type (from Nrsg): Central Line Central line still needed: Yes Urinary Cath still in place: No Assessment/Plan Assessment/Plan 1. Cancer of the left breast. Exact type at this time unknown.MULTIPLE BONY METS, PULMONARY METS 2. Severe pain in the interscapular and lumbar sacral area most probably metastatic lesion possible femoral fracture. pathologic fracture of T9 with 60% of loss of height. Neurosurgical f/u. 3. Obesity. 4. Weight loss 60 pounds during the last 2 years by diet 5. PMS. 6. Myopia. 7. Anemia chronic disease with a drop of her hematocrit to 27 and regaining to 30 without any measures. Latest results 28. Protonix was added. Today hematocrit is 26. Will recheck tomorrow 8. Anxiety disorder. Claustrophobia. Increase Ativan to 1 mg every 8 as needed at Lexapro 10 mg daily. 9. Posttraumatic stress disorder. 10. Pain in the left forearm with a history of fracture of ulna and radius. 11. Tachycardia 12. Hypoxemia at night marginal improved after 2 L of nasal cannula oxygen. 13. Deconditioning 14. 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 15. Pain syndrome. Today the most painful zone is in the right hip area. X- ray did not show any fractures. 16. Hyponatremia- resolved 17. Leucopenia-improved. 18. Neutropenia with occasional fever and chills. Hold discharge, until she is stable. 19. Hypoalbuminemia 2.4 now 2.7 20.Right sided cp after catheter insertion and correction less dis comfort. 21. Decreased edema both lower extremities with hypotension-improving On abdominal us:. Limited study as described above. 2. Diffusely heterogeneous liver consistent with multiple masses. 3. Gallstones and sludge in the gallbladder. No evidence of cholecystitis. 4. Proximal abdominal aorta not visualized. 5. Spleen not visualized. 6. Otherwise unremarkable abdomen and retroperitoneum ultrasound. On CZR:1. No significant interval change. 2. Cardiomegaly. 3. Bibasilar opacities may represent atelectasis or infiltrate. 4. Stable left pleural effusion. Result Diagram: 06/20/18 0424 06/19/18 0418 Results 24hrs Laboratory Tests Test 06/20/18 04:24 Hemoglobin 8.2 L Hematocrit 26.1 L Troponin I < 0.012 Subjective 24 Hr Interval Summary Free Text/Dictation pain of the right hip persists. Sob improved. Decreased edema. Patient expressed that she feels pressure sensation in the room and as a close space it elicited severe fearful sensation in her. I am very anxious turns my mood is down. I do not know what is going on with me. Lengthy discussion to explain the nature of disease and current progress in terms of chemotherapy and planned other measures. Explained course of edema of lower extremities mentioning low albumin low H&H increase water intake and decreasing activities. Agreed to continue more active life. Explained that the pain in the right hip area is as a consequence of metastasis and there is nothing new comparing with the first day of admission. No fractures. Constitutional: poor po, other (Overall she lost another 4 kg of weight during the last month mainly due to her poor eating.); No no complaints, No improved, No chills, No diaphoresis, No disoriented, No febrile, No requiring IVF, No requiring O2 Eyes: No no complaints, No pain, No discharge, No redness, No visual change, No other ENT: No no complaints, No bleeding, No pain, No congestion, No discharge, No dysphagia, No sore throat, No other Respiratory: shortness of breath; No no complaints, No pain, No cough, No pleuritic pain, No sputum, No wheezing, No other Cardiovascular: chest pain, edema, orthopenea, palpitations; No no complaints, No lightheadedness, No paroxysmal nocturnal dyspnea, No other Gastrointestinal: constipation (She did have a bowel movement last 3 days and denies melena or hematochezia. Explained to continue monitoring.), decreased appetite, nausea; No no complaints, No pain, No blood, No diarrhea, No flatus, No passing stool, No vomiting, No other Genitourinary: discharge, flank pain; No no complaints, No bleeding, No dysuria, No hematuria, No other Musculoskeletal: back pain, bone/joint pain, neck pain; No no complaints, No restricted range of motion, No swelling, No other Skin: No no complaints, No bruising, No erythema, No laceration, No pruritis, No rash, No skin lesions, No other Neurologic: headache; No no complaints, No confusion, No dizziness, No focal-weakness, No syncope, No seizure, No other Endocrine: dry skin; No no complaints, No polyuria, No polydypsia, No temp intolerance, No other Lymphatic: No no complaints, No adenopathy, No tender nodes, No lymphadema, No other Psychological: anxiety, depression, other (Claustrophobia. Anxiety but no panic attacks.); No no complaints, No nl mood/affect, No confusion, No suicidal Immunologic: No no complaints, No immunodeficiency, No pruritis, No rhinitis, No urticaria, No other Exam/Review of Systems Vital Signs Vitals Vital Signs Date Temp Pulse Resp B/P (MAP) Pulse Ox O2 O2 Flow FiO2 Time Delivery Rate 06/20/18 98.3 97 18 99/58 (72) 93 Room Air 08:06 06/18/18 2.0 02:00 Intake and Output 06/19/18 06/19/18 06/20/18 1515:00 23:00 07:00 IntakeIntake Total 750 ml 200 ml OutputOutput Total 200 ml 250 ml BalanceBalance 550 ml -50 ml Exam Constitutional: alert, oriented, well developed, frail, obese; No non-verbal, No distress, No other Psych: anxiety, depression; No no complaints, No nl mood/affect, No confusion, No suicidal, No other Head: normocephalic, atraumatic; No lacerations, No hematomas, No other Eyes: EOMI, nl lids, PERRL; No nl conjunctiva, No nl sclera, No icteric, No fundi, disc, No other ENMT: nl nasal mucosa & septum; No nl external ears & nose, No nl lips & teeth, No mucosa pink and moist, No intubated, No tympanic membranes, No other Neck: thyromegaly, nuchal rigidity; No supple, No non-tender, No jvd, No bruits, No masses, No other Respiratory: clear to auscultation, normal air movement, diminished breath sounds; No congested cough, No crackles/rales, No intercostal retraction, No labored breathing, No respirations, No tactile fremitus, No wheezing, No other Cardiovascular: nl pulses, bruits, edema, systolic murmur; No regular rate and rhythm, No diastolic murmur, No gallop, No irregular rhythm, No jugular venous distention (JVD), No murmurs/extra sounds, No rub, No S3, No S4, No other Gastrointestinal: soft, nl liver, spleen, bowel sounds, distended; No non-tender, No ascites, No firm, No hepatomegaly, No mass, No rebound or guarding, No splenomegaly, No surgical scars, No tender, No other Genitourinary - Female: nl adnexae, nl external genitalia; No CMT, No CVA tenderness, No uterus, No other Musculoskeletal: nl gait and stance (Walks with a walker unstable gait high risk of fall. Discussed with the nurse.), joint tenderness, muscle tone (Decrease.), muscle weakness (Permanent.); No nl extremities to inspection, No range of motion, No spine non-tender, No swelling, No other Extremities: normal pulses; No calf tenderness, No cyanosis, No clubbing, No edema, No pitting pedal edema, No palpable cord, No tenderness, No other 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: TREASURY ANALYST 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; No nl mental status, No nl speech, No nl strength, No confused, No DTR's symmetric, No focal weakness, No lethargic, No numbness, No reflexes, No unresponsive, No other Skin: nl turgor; No rash or lesions, No diaphoresis, No ecchymosis, No laceration, No puncture, No other Lymph: No nl lymph nodes, No enlarged, No nontender, No other Medications Medications Current Medications Anastrozole (Arimidex) 1 mg DAILY PO Last administered on 06/20/18at 10:04; Admin Dose 1 MG; Start 04/25/18 at 19:00 Zolpidem Tartrate (Ambien) 10 mg HS PRN PO INSOMNIA; Start 04/25/18 at 23:30 Lorazepam (Ativan) 0.5 mg TID PRN PO ANXIETY Last administered on 06/19/18at 23:22; Admin Dose 0.5 MG; Start 04/25/18 at 23:30 Magnesium Hydroxide (Milk Of Mag) 30 ml DAILY PRN PO CONSTIPATION Last administered on 06/20/18 05:45; Admin Dose 30 ML; Start 04/27/18 at 21:00 Acetaminophen (Tylenol Tab) 500 mg Q6H PRN PO MILD PAIN(1-3)OR ELEVATED TEMP Last administered on 06/02/18at 23:59; Admin Dose 500 MG; Start 05/30/18 at 20:30 Cholecalciferol (Vitamin D) 4,000 unit DAILY PO Last administered on 06/20/18 10:02; Admin Dose 4,000 UNIT; Start 06/02/18 at 09:00 Oxycodone HCl (Oxycontin) 20 mg BID PO Last administered on 06/20/18 10:02; Admin Dose 20 MG; Start 06/03/18 at 21:00 Morphine Sulfate (morphine) 9 mg Q4H PRN PO SEVERE PAIN LEVEL 7-10 Last administered on 06/20/18 10:02; Admin Dose 9 MG; Start 06/04/18 at 10:00 Spironolactone (Aldactone) 25 mg BID DIURETICS PO Last administered on 06/20/18 05:45; Admin Dose 25 MG; Start 06/11/18 at 18:00 Carvedilol (Coreg) 3.125 mg BID PO Last administered on 06/20/18 10:05; Admin Dose 3.125 MG; Start 06/11/18 at 13:30 Furosemide (Lasix) 20 mg DAILY IV Last administered on 06/20/18 10:07; Admin Dose 20 MG; Start 06/17/18 at 09:00 Ondansetron HCl (Zofran Inj) 4 mg Q6H PRN IV NAUSEA AND/OR VOMITING Last administered on 06/17/18at 07:54; Admin Dose 4 MG; Start 06/17/18 at 07:30 Enoxaparin Sodium (Lovenox) 40 mg Q24H SC Last administered on 06/19/18 19:00; Admin Dose 40 MG; Start 06/19/18 at 18:00 Enalapril Maleate (Vasotec) 2.5 mg DAILY PO Last administered on 06/20/18 10:07; Admin Dose 2.5 MG; Start 1/2/19 at 22:30 Pantoprazole (Protonix Tab) 40 mg DAILY@06 PO Last administered on 06/20/18at 05:45; Admin Dose 40 MG; Start 06/20/18 at 06:00 RUSS JEROME MD Jun 20, 2018 11:56
--- NOTE | 2018-06-20 13:31 | CONS ---
Date/Time of Note Date/Time of Note DATE: 06/20/18 TIME: 13:30 Assessment/Plan Assessment/Plan Hospital Course IMP: 1.CHF-diastolic acute on chronic. Reasonable volume status. laying flat EF 55% by echo this admit 2.HTN-currently borderline hypotension 3.Breast CA-metastatic to bones 4.anemia 5.Hyponatremia-improved 6.Compression fractures 7. UTI s/p course abx REcc: -Continue coreg as tolerated only and follow BP closely and now started on ACEI low dose. Follow BP clsoely -Continue aldactone/lasix and follow volume status closely -s/p abx course, f/u cx data -ongoing oncology eval Result Diagram: 06/20/18 0424 06/19/18 0418 Results 24hrs Laboratory Tests Test 06/20/18 04:24 06/20/18 10:50 Hemoglobin 8.2 L Hematocrit 26.1 L Troponin I < 0.012 Stool Occult Blood NEGATIVE Consultation Date/Type/Reason Admit Date/Time Apr 25, 2018 at 14:37 Initial Consult Date 04/26/18 Type of Consult cardiology Reason for Consultation CHF Requesting Provider: RUSS JEROME MD Exam/Review of Systems Vital Signs Vitals Vital Signs Date Temp Pulse Resp B/P (MAP) Pulse Ox O2 O2 Flow FiO2 Time Delivery Rate 06/20/18 98.3 97 18 99/58 (72) 93 Room Air 08:06 06/18/18 2.0 02:00 Intake and Output 06/19/18 06/19/18 06/20/18 1515:00 23:00 07:00 IntakeIntake Total 750 ml 200 ml OutputOutput Total 200 ml 250 ml BalanceBalance 550 ml -50 ml Exam Review of Systems: CONSTITUTIONAL: No fevers, chills. PULMONARY: No sob CARDIOVASCULAR: No chest pain/palpitations GASTROINTESTINAL: No nausea/vomiting. GENITOURINARY: No hematuria/dysuria. MUSCULOSKELETAL: No myagias/arthalgias. PSYCHIATRIC: The patient denies depression. NEUROLOGIC: No weakness Constitutional: alert Psych: no complaints Head: normocephalic ENMT: mucosa pink and moist Neck: supple, jvd (9 cm water) Respiratory: clear to auscultation Cardiovascular: regular rate and rhythm Gastrointestinal: soft, non-tender Musculoskeletal: muscle tone (normal) Extremities: edema (none) 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: other (No focal deficits) Medications Medications Current Medications Anastrozole (Arimidex) 1 mg DAILY PO Last administered on 06/20/18 10:04; Admin Dose 1 MG; Start 04/25/18 at 19:00 Zolpidem Tartrate (Ambien) 10 mg HS PRN PO INSOMNIA; Start 04/25/18 at 23:30 Magnesium Hydroxide (Milk Of Mag) 30 ml DAILY PRN PO CONSTIPATION Last administered on 06/20/18 05:45; Admin Dose 30 ML; Start 04/27/18 at 21:00 Acetaminophen (Tylenol Tab) 500 mg Q6H PRN PO MILD PAIN(1-3)OR ELEVATED TEMP Last administered on 06/02/18at 23:59; Admin Dose 500 MG; Start 05/30/18 at 20:30 Cholecalciferol (Vitamin D) 4,000 unit DAILY PO Last administered on 06/20/18 10:02; Admin Dose 4,000 UNIT; Start 06/02/18 at 09:00 Oxycodone HCl (Oxycontin) 20 mg BID PO Last administered on 06/20/18 10:02; Admin Dose 20 MG; Start 06/03/18 at 21:00 Morphine Sulfate (morphine) 9 mg Q4H PRN PO SEVERE PAIN LEVEL 7-10 Last administered on 06/20/18 10:02; Admin Dose 9 MG; Start 06/04/18 at 10:00 Carvedilol (Coreg) 3.125 mg BID PO Last administered on 06/20/18 10:05; Admin Dose 3.125 MG; Start 06/11/18 at 13:30 Furosemide (Lasix) 20 mg DAILY IV Last administered on 06/20/18 10:07; Admin Dose 20 MG; Start 06/17/18 at 09:00 Ondansetron HCl (Zofran Inj) 4 mg Q6H PRN IV NAUSEA AND/OR VOMITING Last administered on 06/17/18at 07:54; Admin Dose 4 MG; Start 06/17/18 at 07:30 Enoxaparin Sodium (Lovenox) 40 mg Q24H SC Last administered on 06/19/18 19:00; Admin Dose 40 MG; Start 06/19/18 at 18:00 Enalapril Maleate (Vasotec) 2.5 mg DAILY PO Last administered on 06/20/18at 10:07; Admin Dose 2.5 MG; Start 06/19/18 at 22:30 Pantoprazole (Protonix Tab) 40 mg DAILY@06 PO Last administered on 06/20/18at 05:45; Admin Dose 40 MG; Start 06/20/18 at 06:00 Lorazepam (Ativan) 1 mg Q8 PRN PO ANXIETY; Start 06/20/18 at 12:30 Escitalopram Oxalate (Lexapro) 10 mg DAILY PO ; Start 06/20/18 at 12:30 Spironolactone (Aldactone) 25 mg DAILY NGT ; Start 06/20/18 at 13:30 KAMILA TERESA Jun 20, 2018 13:31
[2018-06-20] MEDS: ESCITALOPRAM 10 MG TAB PO SCH (13:34)
[2018-06-20] MEDS: SPIRONOLACTONE 25 MG TAB NGT SCH (13:34)
[2018-06-20 14:00] VITALS: BP 100/56; PULSE 90; RESP 18
--- NOTE | 2018-06-20 17:05 | CONS ---
Date/Time of Note Date/Time of Note DATE: 06/20/18 TIME: 17:04 Assessment/Plan Assessment/Plan Hospital Course Alert, more anxious today, no fevers Indwelling: R chest Port-A-Cath 05/29/18 Physical examination: Obese well-developed middle-aged Somali-speaking woman who is alert in no distress. Head atraumatic normocephalic sclera nonicteric vehicle mucosa pink. Neck is supple chest rise symmetrical breath sounds diminished bases. Heart: S1-S2. Abdomen soft bowel sounds present extremities without cyanosis, left upper extremity with edema Assessment: 1. Status post neutropenic fevers 2. Metastatic breast cancer 3. Status post urinary tract infection 4. Obesity 5. Anasarca Plan: Stable, off antibiotics, will reculture if she spikes fever, follow oncology recommendations Result Diagram: 06/20/18 0424 06/19/18 0418 Results 24hrs Laboratory Tests Test 06/20/18 04:24 06/20/18 10:50 Hemoglobin 8.2 L Hematocrit 26.1 L Troponin I < 0.012 Stool Occult Blood NEGATIVE Consultation Date/Type/Reason Admit Date/Time Apr 25, 2018 at 14:37 Initial Consult Date 04/26/18 Type of Consult ID Requesting Provider: RUSS JEROME MD Exam/Review of Systems Vital Signs Vitals Vital Signs Date Temp Pulse Resp B/P (MAP) Pulse Ox O2 O2 Flow FiO2 Time Delivery Rate 06/20/18 97.8 90 18 100/56 95 Room Air 14:00 (71) 06/18/18 2.0 02:00 Intake and Output 06/19/18 06/19/18 06/20/18 1515:00 23:00 07:00 IntakeIntake Total 750 ml 200 ml OutputOutput Total 200 ml 250 ml BalanceBalance 550 ml -50 ml Medications Medications Current Medications Anastrozole (Arimidex) 1 mg DAILY PO Last administered on 06/20/18at 10:04; Admin Dose 1 MG; Start 04/25/18 at 19:00 Zolpidem Tartrate (Ambien) 10 mg HS PRN PO INSOMNIA; Start 04/25/18 at 23:30 Magnesium Hydroxide (Milk Of Mag) 30 ml DAILY PRN PO CONSTIPATION Last administered on 06/20/18at 05:45; Admin Dose 30 ML; Start 04/27/18 at 21:00 Acetaminophen (Tylenol Tab) 500 mg Q6H PRN PO MILD PAIN(1-3)OR ELEVATED TEMP Last administered on 06/02/18at 23:59; Admin Dose 500 MG; Start 05/30/18 at 20:30 Cholecalciferol (Vitamin D) 4,000 unit DAILY PO Last administered on 06/20/18 10:02; Admin Dose 4,000 UNIT; Start 06/02/18 at 09:00 Oxycodone HCl (Oxycontin) 20 mg BID PO Last administered on 06/20/18 10:02; Admin Dose 20 MG; Start 06/03/18 at 21:00 Morphine Sulfate (morphine) 9 mg Q4H PRN PO SEVERE PAIN LEVEL 7-10 Last administered on 06/20/18 10:02; Admin Dose 9 MG; Start 06/04/18 at 10:00 Carvedilol (Coreg) 3.125 mg BID PO Last administered on 06/20/18 10:05; Admin Dose 3.125 MG; Start 06/11/18 at 13:30 Furosemide (Lasix) 20 mg DAILY IV Last administered on 06/20/18 10:07; Admin Dose 20 MG; Start 06/17/18 at 09:00 Ondansetron HCl (Zofran Inj) 4 mg Q6H PRN IV NAUSEA AND/OR VOMITING Last administered on 06/17/18at 07:54; Admin Dose 4 MG; Start 06/17/18 at 07:30 Enoxaparin Sodium (Lovenox) 40 mg Q24H SC Last administered on 06/19/18 19:00; Admin Dose 40 MG; Start 06/19/18 at 18:00 Enalapril Maleate (Vasotec) 2.5 mg DAILY PO Last administered on 06/20/18 10:07; Admin Dose 2.5 MG; Start 06/19/18 at 22:30 Pantoprazole (Protonix Tab) 40 mg DAILY@06 PO Last administered on 06/20/18 05:45; Admin Dose 40 MG; Start 06/20/18 at 06:00 Lorazepam (Ativan) 1 mg Q8 PRN PO ANXIETY; Start 06/20/18 at 12:30 Escitalopram Oxalate (Lexapro) 10 mg DAILY PO Last administered on 1/3/19at 13:34; Admin Dose 10 MG; Start 06/20/18 at 12:30 Spironolactone (Aldactone) 25 mg DAILY NGT Last administered on 06/20/18at 13:34; Admin Dose 25 MG; Start 06/20/18 at 13:30 YUAN ROMERO NP Jun 20, 2018 17:05
[2018-06-20] MEDS: ENOXAPARIN 40 MG/0.4 ML SYG SC SCH (18:13)
[2018-06-20] MEDS: LORAZEPAM 1 MG TAB PO PRN (18:21)
[2018-06-20 20:17] VITALS: BP 85/51; PULSE 93; RESP 18
[2018-06-21 02:05] VITALS: BP 119/75; PULSE 104; RESP 18
[2018-06-21] MEDS: morphine LIQ (10 MG/5 ML) CUP PO PRN ×3 (05:01→23:06)
[2018-06-21] MEDS: PANTOPRAZOLE (EC) 40 MG TAB PO SCH (05:01)
[2018-06-21 08:17] VITALS: BP 96/52; PULSE 98; RESP 18
[2018-06-21] MEDS: ESCITALOPRAM 10 MG TAB PO SCH (08:57)
[2018-06-21] MEDS: FUROSEMIDE 20 MG INJ IV SCH (08:58)
[2018-06-21] MEDS: oxyCODONE (CR) 20 MG TAB [oxyCONTIN] PO SCH ×2 (08:58→20:28)
[2018-06-21] MEDS: CHOLECALCIFEROL 2,000 UNIT CAP PO SCH (08:58)
[2018-06-21] MEDS: ANASTROZOLE 1 MG TAB PO SCH (08:59)
[2018-06-21] MEDS: ENALAPRIL 2.5 MG TAB PO SCH (09:00)
[2018-06-21] MEDS: SPIRONOLACTONE 25 MG TAB NGT SCH (09:07)
--- NOTE | 2018-06-21 09:26 | PN ---
Date/Time of Note Date/Time of Note DATE: 06/21/18 TIME: 09:25 Assessment/Plan VTE Prophylaxis Risk score (from Nsg)>0 risk: 5 SCD applied (from Ns): No SCD contraindicated: low risk/ambulating Pharmacological prophylaxis: LMWH Lines/Catheters IV Catheter Type (from Nrs): PORT-A-CATH Central line still needed: No Urinary Cath still in place: No Assessment/Plan Assessment/Plan 1. Cancer of the left breast. Exact type at this time unknown.MULTIPLE BONY METS, PULMONARY METS 2. Severe pain in the interscapular and lumbar sacral area most probably metastatic lesion possible femoral fracture. pathologic fracture of T9 with 60% of loss of height. Neurosurgical f/u. 3. Obesity. 4. Weight loss 60 pounds during the last 2 years by diet 5. PMS. 6. Myopia. 7. Anemia chronic disease with a drop of her hematocrit to 27 and regaining to 30 without any measures. Latest results 28. Protonix was added. Today hematocrit is 26. Will recheck tomorrow 8. Anxiety disorder. Claustrophobia. Increase Ativan to 1 mg every 8 as needed at Lexapro 10 mg daily. 9. Posttraumatic stress disorder. 10. Pain in the left forearm with a history of fracture of ulna and radius. 11. Tachycardia 12. Hypoxemia at night marginal improved after 2 L of nasal cannula oxygen. 13. Deconditioning 14. 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 15. Pain syndrome. Today the most painful zone is in the right hip area. X- ray did not show any fractures. 16. Hyponatremia- resolved 17. Leucopenia-improved. 18. Neutropenia with occasional fever and chills. Hold discharge, until she is stable. 19. Hypoalbuminemia 2.4 now 2.7 20.Right sided cp after catheter insertion and correction less discomfort. 21. Decreased edema both lower extremities with hypotension-improving On abdominal us:. Limited study as described above. 2. Diffusely heterogeneous liver consistent with multiple masses. 3. Gallstones and sludge in the gallbladder. No evidence of cholecystitis. 4. Proximal abdominal aorta not visualized. 5. Spleen not visualized. 6. Otherwise unremarkable abdomen and retroperitoneum ultrasound. On CZR:1. No significant interval change. 2. Cardiomegaly. 3. Bibasilar opacities may represent atelectasis or infiltrate. 4. Stable left pleural effusion. Result Diagram: 06/21/187 06/21/187 Results 24hrs Laboratory Tests Test 06/20/18 10:50 06/21/18 04:27 Stool Occult Blood NEGATIVE White Blood Count 4.0 #L Red Blood Count 2.48 L Hemoglobin 8.0 L Hematocrit 25.3 L Mean Corpuscular Volume 102.0 H Mean Corpuscular Hemoglobin 32.3 Mean Corpuscular Hemoglobin Concent 31.6 L Red Cell Distribution Width 19.4 H Platelet Count 233 Mean Platelet Volume 9.3 Immature Granulocytes % 0.500 H Neutrophils % 33.4 L Lymphocytes % 46.5 Monocytes % 17.9 H Eosinophils % 0.2 Basophils % 1.5 Nucleated Red Blood Cells % 0.0 Immature Granulocytes # 0.020 Neutrophils # 1.3 L Lymphocytes # 1.9 Monocytes # 0.7 Eosinophils # 0.0 Basophils # 0.1 Nucleated Red Blood Cells # 0.0 Sodium Level 139 Potassium Level 4.1 Chloride Level 103 Carbon Dioxide Level 30 Anion Gap 6 Blood Urea Nitrogen 9 Creatinine 0.51 Est Glomerular Filtrat Rate mL/min > 60 Glucose Level 98 Calcium Level 8.4 Total Bilirubin 0.3 Direct Bilirubin 0.00 Indirect Bilirubin 0.3 Aspartate Amino Transf (AST/SGOT) 32 Alanine Aminotransferase (ALT/SGPT) 23 Alkaline Phosphatase 165 H Total Protein 5.9 L Albumin 2.7 L Globulin 3.20 Albumin/Globulin Ratio 0.84 Subjective 24 Hr Interval Summary Free Text/Dictation Worsening of the pain of the right hip while walking. Weakness, swollen legs. Right side is more swollen than left and it is more prominent in the evening than in the morning. No redness no fever and chills positive for nausea no vomiting. Constitutional: poor po, other (Generalized weakness tiredness generalized body ache while moving.); No no complaints, No improved, No chills, No diaphoresis, No disoriented, No febrile, No requiring IVF, No requiring O2 Eyes: No no complaints, No pain, No discharge, No redness, No visual change, No other ENT: No no complaints, No bleeding, No pain, No congestion, No discharge, No dysphagia, No sore throat, No other Respiratory: No no complaints, No pain, No cough, No pleuritic pain, No shortness of breath, No sputum, No wheezing, No other Cardiovascular: edema; No no complaints, No chest pain, No lightheadedness, No orthopenea, No palpitations, No paroxysmal nocturnal dyspnea, No other Gastrointestinal: constipation, flatus, passing stool (No bowel movements left last 3 days.); No no complaints, No pain, No blood, No decreased appetite, No diarrhea, No nausea, No vomiting, No other Genitourinary: flank pain; No no complaints, No bleeding, No dysuria, No discharge, No hematuria, No other Musculoskeletal: back pain, bone/joint pain, neck pain; No no complaints, No restricted range of motion, No swelling, No other Skin: No no complaints, No bruising, No erythema, No laceration, No pruritis, No rash, No skin lesions, No other Neurologic: No no complaints, No confusion, No dizziness, No focal-weakness, No headache, No syncope, No seizure, No other Endocrine: No no complaints, No polyuria, No polydypsia, No dry skin, No temp intolerance, No other Lymphatic: No no complaints, No adenopathy, No tender nodes, No lymphadema, No other Psychological: anxiety; No no complaints, No nl mood/affect, No confusion, No depression, No suicidal, No other Exam/Review of Systems Vital Signs Vitals Vital Signs Date Temp Pulse Resp B/P (MAP) Pulse Ox O2 O2 Flow FiO2 Time Delivery Rate 06/21/18 98.5 98 18 96/52 (67) 92 Room Air 08:17 06/18/18 2.0 02:00 Intake and Output 06/20/18 06/20/18 06/21/18 1515:00 23:00 07:00 IntakeIntake Total 800 ml 200 ml OutputOutput Total 1 ml BalanceBalance 799 ml 200 ml Exam Constitutional: alert, oriented, well developed, distress, frail; No non-verbal, No obese, No other Psych: no complaints, anxiety, depression; No nl mood/affect, No confusion, No suicidal, No other Eyes: EOMI, nl lids, PERRL; No nl conjunctiva, No nl sclera, No icteric, No fundi, disc, No other ENMT: nl lips & teeth; No nl external ears & nose, No nl nasal mucosa & septum, No mucosa pink and moist, No intubated, No tympanic membranes, No other Neck: non-tender, bruits, nuchal rigidity; No supple, No jvd, No masses, No thyromegaly, No other Respiratory: clear to auscultation, normal air movement, congested cough, diminished breath sounds; No crackles/rales, No intercostal retraction, No labored breathing, No respirations, No tactile fremitus, No wheezing, No other Cardiovascular: regular rate and rhythm, nl pulses, bruits, systolic murmur; No diastolic murmur, No edema, No gallop, No irregular rhythm, No jugular venous distention (JVD), No murmurs/extra sounds, No rub, No S3, No S4, No other Gastrointestinal: soft, nl liver, spleen, bowel sounds; No non-tender, No ascites, No distended, No firm, No hepatomegaly, No mass, No rebound or guarding, No splenomegaly, No surgical scars, No tender, No other Musculoskeletal: nl gait and stance (No episode of fall but gait is not steady but she is making an attempt to walk.), joint tenderness, muscle tone, muscle weakness, range of motion; No nl extremities to inspection, No spine non-tender, No swelling, No other Extremities: No normal pulses, No calf tenderness, No cyanosis, No clubbing, No edema, No pitting pedal edema, No palpable cord, No tenderness, No other 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: COMMUTER PILOT 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, numbness; No nl mental status, No nl speech, No nl strength, No confused, No DTR's symmetric, No focal weakness, No lethargic, No reflexes, No unresponsive, No other Lymph: No nl lymph nodes, No enlarged, No nontender, No other Medications Medications Current Medications Anastrozole (Arimidex) 1 mg DAILY PO Last administered on 06/21/18at 08:59; Admin Dose 1 MG; Start 04/25/18 at 19:00 Zolpidem Tartrate (Ambien) 10 mg HS PRN PO INSOMNIA; Start 04/25/18 at 23:30 Magnesium Hydroxide (Milk Of Mag) 30 ml DAILY PRN PO CONSTIPATION Last administered on 06/20/18at 05:45; Admin Dose 30 ML; Start 04/27/18 at 21:00 Acetaminophen (Tylenol Tab) 500 mg Q6H PRN PO MILD PAIN(1-3)OR ELEVATED TEMP Last administered on 06/02/18 23:59; Admin Dose 500 MG; Start 05/30/18 at 20:30 Cholecalciferol (Vitamin D) 4,000 unit DAILY PO Last administered on 06/21/18 08:58; Admin Dose 4,000 UNIT; Start 06/02/18 at 09:00 Oxycodone HCl (Oxycontin) 20 mg BID PO Last administered on 06/21/18 08:58; Admin Dose 20 MG; Start 06/03/18 at 21:00 Morphine Sulfate (morphine) 9 mg Q4H PRN PO SEVERE PAIN LEVEL 7-10 Last administered on 06/21/18 05:01; Admin Dose 9 MG; Start 06/04/18 at 10:00 Carvedilol (Coreg) 3.125 mg BID PO Last administered on 06/20/18 10:05; Admin Dose 3.125 MG; Start 06/11/18 at 13:30 Furosemide (Lasix) 20 mg DAILY IV Last administered on 06/21/18 08:58; Admin Dose 20 MG; Start 06/17/18 at 09:00 Ondansetron HCl (Zofran Inj) 4 mg Q6H PRN IV NAUSEA AND/OR VOMITING Last administered on 06/17/18 07:54; Admin Dose 4 MG; Start 06/17/18 at 07:30 Enoxaparin Sodium (Lovenox) 40 mg Q24H SC Last administered on 06/20/18 18:13; Admin Dose 40 MG; Start 06/19/18 at 18:00 Enalapril Maleate (Vasotec) 2.5 mg DAILY PO Last administered on 06/20/18 10:07; Admin Dose 2.5 MG; Start 06/19/18 at 22:30 Pantoprazole (Protonix Tab) 40 mg DAILY@06 PO Last administered on 06/21/18 05:01; Admin Dose 40 MG; Start 06/20/18 at 06:00 Lorazepam (Ativan) 1 mg Q8 PRN PO ANXIETY Last administered on 06/20/18 18:21; Admin Dose 1 MG; Start 06/20/18 at 12:30 Escitalopram Oxalate (Lexapro) 10 mg DAILY PO Last administered on 1/4/19at 08:57; Admin Dose 10 MG; Start 06/20/18 at 12:30 Spironolactone (Aldactone) 25 mg DAILY NGT Last administered on 06/21/18at 09:07; Admin Dose 25 MG; Start 06/20/18 at 13:30 RUSS JEROME MD Jun 21, 2018 09:26
--- NOTE | 2018-06-21 14:43 | CONS ---
Date/Time of Note Date/Time of Note DATE: 06/21/18 TIME: 14:42 Assessment/Plan Assessment/Plan Hospital Course Alert, ambulating with a walker, no fevers, nad Indwelling: R chest Port-A-Cath 05/29/18 Physical examination: Obese well-developed middle-aged [place]-speaking woman who is alert in no distress. Head atraumatic normocephalic sclera nonicteric vehicle mucosa pink. Neck is supple chest rise symmetrical breath sounds diminished bases. Heart: S1-S2. Abdomen soft bowel sounds present extremities without cyanosis, left upper extremity with edema Assessment: 1. Status post neutropenic fevers 2. Metastatic breast cancer 3. Status post urinary tract infection 4. Obesity 5. Anasarca Plan: Remains stable off antibiotics, will reculture if she spikes fever, follow oncology recommendations Result Diagram: 06/21/187 06/21/187 Results 24hrs Laboratory Tests Test 06/21/18 04:27 White Blood Count 4.0 #L Red Blood Count 2.48 L Hemoglobin 8.0 L Hematocrit 25.3 L Mean Corpuscular Volume 102.0 H Mean Corpuscular Hemoglobin 32.3 Mean Corpuscular Hemoglobin Concent 31.6 L Red Cell Distribution Width 19.4 H Platelet Count 233 Mean Platelet Volume 9.3 Immature Granulocytes % 0.500 H Neutrophils % 33.4 L Lymphocytes % 46.5 Monocytes % 17.9 H Eosinophils % 0.2 Basophils % 1.5 Nucleated Red Blood Cells % 0.0 Immature Granulocytes # 0.020 Neutrophils # 1.3 L Lymphocytes # 1.9 Monocytes # 0.7 Eosinophils # 0.0 Basophils # 0.1 Nucleated Red Blood Cells # 0.0 Sodium Level 139 Potassium Level 4.1 Chloride Level 103 Carbon Dioxide Level 30 Anion Gap 6 Blood Urea Nitrogen 9 Creatinine 0.51 Est Glomerular Filtrat Rate mL/min > 60 Glucose Level 98 Calcium Level 8.4 Total Bilirubin 0.3 Direct Bilirubin 0.00 Indirect Bilirubin 0.3 Aspartate Amino Transf (AST/SGOT) 32 Alanine Aminotransferase (ALT/SGPT) 23 Alkaline Phosphatase 165 H Total Protein 5.9 L Albumin 2.7 L Globulin 3.20 Albumin/Globulin Ratio 0.84 Consultation Date/Type/Reason Admit Date/Time Apr 25, 2018 at 14:37 Initial Consult Date 04/26/18 Type of Consult ID Requesting Provider: RUSS JEROME MD Exam/Review of Systems Vital Signs Vitals Vital Signs Date Temp Pulse Resp B/P (MAP) Pulse Ox O2 O2 Flow FiO2 Time Delivery Rate 06/21/18 98.5 98 18 96/52 (67) 92 Room Air 08:17 06/18/18 2.0 02:00 Intake and Output 06/20/18 06/20/18 06/21/18 1515:00 23:00 07:00 IntakeIntake Total 800 ml 200 ml OutputOutput Total 1 ml BalanceBalance 799 ml 200 ml Medications Medications Current Medications Anastrozole (Arimidex) 1 mg DAILY PO Last administered on 06/21/18 08:59; Admin Dose 1 MG; Start 04/25/18 at 19:00 Zolpidem Tartrate (Ambien) 10 mg HS PRN PO INSOMNIA; Start 04/25/18 at 23:30 Magnesium Hydroxide (Milk Of Mag) 30 ml DAILY PRN PO CONSTIPATION Last administered on 06/20/18 05:45; Admin Dose 30 ML; Start 04/27/18 at 21:00 Acetaminophen (Tylenol Tab) 500 mg Q6H PRN PO MILD PAIN(1-3)OR ELEVATED TEMP Last administered on 06/02/18at 23:59; Admin Dose 500 MG; Start 05/30/18 at 20:30 Cholecalciferol (Vitamin D) 4,000 unit DAILY PO Last administered on 06/21/18 08:58; Admin Dose 4,000 UNIT; Start 06/02/18 at 09:00 Oxycodone HCl (Oxycontin) 20 mg BID PO Last administered on 06/21/18 08:58; Admin Dose 20 MG; Start 06/03/18 at 21:00 Morphine Sulfate (morphine) 9 mg Q4H PRN PO SEVERE PAIN LEVEL 7-10 Last administered on 06/21/18 05:01; Admin Dose 9 MG; Start 06/04/18 at 10:00 Carvedilol (Coreg) 3.125 mg BID PO Last administered on 06/20/18 10:05; Admin Dose 3.125 MG; Start 06/11/18 at 13:30 Furosemide (Lasix) 20 mg DAILY IV Last administered on 06/21/18 08:58; Admin Dose 20 MG; Start 06/17/18 at 09:00 Ondansetron HCl (Zofran Inj) 4 mg Q6H PRN IV NAUSEA AND/OR VOMITING Last administered on 06/17/18at 07:54; Admin Dose 4 MG; Start 06/17/18 at 07:30 Enoxaparin Sodium (Lovenox) 40 mg Q24H SC Last administered on 06/20/18 18:13; Admin Dose 40 MG; Start 06/19/18 at 18:00 Enalapril Maleate (Vasotec) 2.5 mg DAILY PO Last administered on 06/20/18 10:07; Admin Dose 2.5 MG; Start 06/19/18 at 22:30 Pantoprazole (Protonix Tab) 40 mg DAILY@06 PO Last administered on 06/21/18 05:01; Admin Dose 40 MG; Start 06/20/18 at 06:00 Lorazepam (Ativan) 1 mg Q8 PRN PO ANXIETY Last administered on 06/20/18 18:21; Admin Dose 1 MG; Start 06/20/18 at 12:30 Escitalopram Oxalate (Lexapro) 10 mg DAILY PO Last administered on 06/21/18 08:57; Admin Dose 10 MG; Start 06/20/18 at 12:30 Spironolactone (Aldactone) 25 mg DAILY NGT Last administered on 06/21/18 09:07; Admin Dose 25 MG; Start 06/20/18 at 13:30 YUAN ROMERO NP Jun 21, 2018 14:43
[2018-06-21] MEDS: LORAZEPAM 1 MG TAB PO PRN (17:52)
[2018-06-21] MEDS: ENOXAPARIN 40 MG/0.4 ML SYG SC SCH (17:54)
--- NOTE | 2018-06-21 19:20 | CONS ---
Date/Time of Note Date/Time of Note DATE: 06/21/18 TIME: 19:01 Assessment/Plan Assessment/Plan Hospital Course Impression: 1. Down-trending h/h 2. Anemia, r/o GI bleed 3. Cancer of the left breast. Exact type at this time unknown.MULTIPLE BONY METS, PULMONARY METS 4. Severe pain in the interscapular and lumbar sacral area most probably metastatic lesion possible femoral fracture. pathologic fracture of T9 with 60% of loss of height. Neurosurgical f/u. 5. Gallstones and sludge in the gallbladder. No evidence of cholecystitis. Recommendations: 1. check stool for occult blood 2. increase protonix to bid dosing 3. anemia w/u by obtaining folate, B12, and iron panel 4. consider EGD and colonoscopy if stool for occult blood is positive Result Diagram: 06/21/18 0427 06/21/18 0427 Results 24hrs Laboratory Tests Test 06/21/18 04:27 White Blood Count 4.0 #L Red Blood Count 2.48 L Hemoglobin 8.0 L Hematocrit 25.3 L Mean Corpuscular Volume 102.0 H Mean Corpuscular Hemoglobin 32.3 Mean Corpuscular Hemoglobin Concent 31.6 L Red Cell Distribution Width 19.4 H Platelet Count 233 Mean Platelet Volume 9.3 Immature Granulocytes % 0.500 H Neutrophils % 33.4 L Lymphocytes % 46.5 Monocytes % 17.9 H Eosinophils % 0.2 Basophils % 1.5 Nucleated Red Blood Cells % 0.0 Immature Granulocytes # 0.020 Neutrophils # 1.3 L Lymphocytes # 1.9 Monocytes # 0.7 Eosinophils # 0.0 Basophils # 0.1 Nucleated Red Blood Cells # 0.0 Sodium Level 139 Potassium Level 4.1 Chloride Level 103 Carbon Dioxide Level 30 Anion Gap 6 Blood Urea Nitrogen 9 Creatinine 0.51 Est Glomerular Filtrat Rate mL/min > 60 Glucose Level 98 Calcium Level 8.4 Total Bilirubin 0.3 Direct Bilirubin 0.00 Indirect Bilirubin 0.3 Aspartate Amino Transf (AST/SGOT) 32 Alanine Aminotransferase (ALT/SGPT) 23 Alkaline Phosphatase 165 H Total Protein 5.9 L Albumin 2.7 L Globulin 3.20 Albumin/Globulin Ratio 0.84 Consultation Date/Type/Reason Admit Date/Time Apr 25, 2018 at 14:37 Date of Consultation: Jun 21, 2018 Type of Consult gastroenterology Reason for Consultation anemia, r/o GI bleed Hx of Present Illness 58 yo F, who is admitted originally on 04/25/18 for low back pain. She has h/o Cancer of the left breast. Exact type at this time unknown.MULTIPLE BONY METS, PULMONARY METS. GI consulted for down-trending h/h. Hospital w/u showed that her severe pain in the interscapular and lumbar sacral area most probably metastatic lesion possible femoral fracture. pathologic fracture of T9 with 60% of loss of height. Stool for occult blood negative on 06/20/18. Abdominal us showed diffusely heterogeneous liver consistent with multiple masses, Gallstones and sludge in the gallbladder. No evidence of cholecystitis. Patient denied melena, BRBPR, coffee ground emesis or hematemesis. Subjective hx not possible: pt critical Constitutional: fatigue, nausea, poor po, weight change (She lost almost 60 pounds during the last 2 years mainly by eating less.); No no complaints, No improved, No chills, No diaphoresis, No disoriented, No febrile, No other Eyes: visual change (Decreased vision myopia), other; No no complaints, No pain, No discharge, No redness ENT: No no complaints, No bleeding, No pain, No congestion, No discharge, No dysphagia, No sore throat, No other Respiratory: shortness of breath; No no complaints, No pain, No cough, No pleuritic pain, No sputum, No wheezing, No other Cardiovascular: chest pain, lightheadedness, orthopenea, palpitations; No no complaints, No edema, No paroxysmal nocturnal dyspnea, No other Gastrointestinal: flatus, nausea, passing stool; No no complaints, No pain, No blood, No constipation, No decreased appetite, No diarrhea, No vomiting, No other Genitourinary: No no complaints, No bleeding, No dysuria, No discharge, No flank pain, No hematuria, No other Musculoskeletal: back pain, bone/joint pain, neck pain; No no complaints, No restricted range of motion, No swelling, No other Skin: pruritis; No no complaints, No bruising, No erythema, No laceration, No rash, No skin lesions, No other Neurologic: headache; No no complaints, No confusion, No dizziness, No focal-weakness, No syncope, No seizure, No other Endocrine: No no complaints, No polyuria, No polydypsia, No dry skin, No temp intolerance, No weight change, No other Lymphatic: No no complaints, No adenopathy, No tender nodes, No lymphadema, No other Immunologic: No no complaints, No immunodeficiency, No pruritis, No rhinitis, No urticaria, No other Past Medical History Medical History: hypertension Medications Current Medications Anastrozole (Arimidex) 1 mg DAILY PO Last administered on 06/21/18 08:59; Admin Dose 1 MG; Start 04/25/18 at 19:00 Zolpidem Tartrate (Ambien) 10 mg HS PRN PO INSOMNIA; Start 04/25/18 at 23:30 Magnesium Hydroxide (Milk Of Mag) 30 ml DAILY PRN PO CONSTIPATION Last administered on 06/20/18 05:45; Admin Dose 30 ML; Start 04/27/18 at 21:00 Acetaminophen (Tylenol Tab) 500 mg Q6H PRN PO MILD PAIN(1-3)OR ELEVATED TEMP Last administered on 06/02/18at 23:59; Admin Dose 500 MG; Start 05/30/18 at 20:30 Cholecalciferol (Vitamin D) 4,000 unit DAILY PO Last administered on 06/21/18 08:58; Admin Dose 4,000 UNIT; Start 06/02/18 at 09:00 Oxycodone HCl (Oxycontin) 20 mg BID PO Last administered on 06/21/18 08:58; Admin Dose 20 MG; Start 06/03/18 at 21:00 Morphine Sulfate (morphine) 9 mg Q4H PRN PO SEVERE PAIN LEVEL 7-10 Last administered on 06/21/18 17:52; Admin Dose 9 MG; Start 06/04/18 at 10:00 Carvedilol (Coreg) 3.125 mg BID PO Last administered on 06/20/18 10:05; Admin Dose 3.125 MG; Start 06/11/18 at 13:30 Furosemide (Lasix) 20 mg DAILY IV Last administered on 06/21/18 08:58; Admin Dose 20 MG; Start 06/17/18 at 09:00 Ondansetron HCl (Zofran Inj) 4 mg Q6H PRN IV NAUSEA AND/OR VOMITING Last administered on 06/17/18at 07:54; Admin Dose 4 MG; Start 06/17/18 at 07:30 Enoxaparin Sodium (Lovenox) 40 mg Q24H SC Last administered on 06/21/18 17:54; Admin Dose 40 MG; Start 06/19/18 at 18:00 Enalapril Maleate (Vasotec) 2.5 mg DAILY PO Last administered on 06/20/18at 10:07; Admin Dose 2.5 MG; Start 06/19/18 at 22:30 Pantoprazole (Protonix Tab) 40 mg DAILY@06 PO Last administered on 06/21/18at 05:01; Admin Dose 40 MG; Start 06/20/18 at 06:00 Lorazepam (Ativan) 1 mg Q8 PRN PO ANXIETY Last administered on 06/21/18 17:52; Admin Dose 1 MG; Start 06/20/18 at 12:30 Escitalopram Oxalate (Lexapro) 10 mg DAILY PO Last administered on 06/21/18 08:57; Admin Dose 10 MG; Start 06/20/18 at 12:30 Spironolactone (Aldactone) 25 mg DAILY NGT Last administered on 06/21/18 09:07; Admin Dose 25 MG; Start 06/20/18 at 13:30 Allergies: Coded Allergies: No Known Allergy (Unverified , 04/25/18) Past Surgical History Past Surgical Hx: no surgical history Family History Significant Family History: no pertinent family hx Social History Alcohol Use: none Smoking Status: Never smoker Drug Use: none Exam/Review of Systems Vital Signs Vitals Vital Signs Date Temp Pulse Resp B/P (MAP) Pulse Ox O2 O2 Flow FiO2 Time Delivery Rate 06/21/18 98.5 98 18 96/52 (67) 92 Room Air 08:17 06/18/18 2.0 02:00 Intake and Output 06/20/18 06/20/18 06/21/18 1515:00 23:00 07:00 IntakeIntake Total 800 ml 200 ml OutputOutput Total 1 ml BalanceBalance 799 ml 200 ml Exam Constitutional: alert, oriented, well developed Psych: no complaints, nl mood/affect Head: normocephalic, atraumatic Eyes: nl conjunctiva, EOMI, nl lids ENMT: nl external ears & nose, nl lips & teeth, nl nasal mucosa & septum Neck: supple, non-tender Respiratory: clear to auscultation, normal air movement Cardiovascular: regular rate and rhythm, nl pulses Gastrointestinal: soft, non-tender, bowel sounds Musculoskeletal: joint tenderness, muscle weakness Medications Medications Current Medications Anastrozole (Arimidex) 1 mg DAILY PO Last administered on 06/21/18 08:59; Admin Dose 1 MG; Start 04/25/18 at 19:00 Zolpidem Tartrate (Ambien) 10 mg HS PRN PO INSOMNIA; Start 04/25/18 at 23:30 Magnesium Hydroxide (Milk Of Mag) 30 ml DAILY PRN PO CONSTIPATION Last administered on 06/20/18 05:45; Admin Dose 30 ML; Start 04/27/18 at 21:00 Acetaminophen (Tylenol Tab) 500 mg Q6H PRN PO MILD PAIN(1-3)OR ELEVATED TEMP Last administered on 06/02/18 23:59; Admin Dose 500 MG; Start 05/30/18 at 20:30 Cholecalciferol (Vitamin D) 4,000 unit DAILY PO Last administered on 06/21/18 08:58; Admin Dose 4,000 UNIT; Start 06/02/18 at 09:00 Oxycodone HCl (Oxycontin) 20 mg BID PO Last administered on 06/21/18 08:58; Admin Dose 20 MG; Start 06/03/18 at 21:00 Morphine Sulfate (morphine) 9 mg Q4H PRN PO SEVERE PAIN LEVEL 7-10 Last administered on 06/21/18 17:52; Admin Dose 9 MG; Start 06/04/18 at 10:00 Carvedilol (Coreg) 3.125 mg BID PO Last administered on 06/20/18 10:05; Admin Dose 3.125 MG; Start 06/11/18 at 13:30 Furosemide (Lasix) 20 mg DAILY IV Last administered on 06/21/18 08:58; Admin Dose 20 MG; Start 06/17/18 at 09:00 Ondansetron HCl (Zofran Inj) 4 mg Q6H PRN IV NAUSEA AND/OR VOMITING Last administered on 06/17/18 07:54; Admin Dose 4 MG; Start 06/17/18 at 07:30 Enoxaparin Sodium (Lovenox) 40 mg Q24H SC Last administered on 06/21/18 17:54; Admin Dose 40 MG; Start 06/19/18 at 18:00 Enalapril Maleate (Vasotec) 2.5 mg DAILY PO Last administered on 06/20/18at 10:07; Admin Dose 2.5 MG; Start 06/19/18 at 22:30 Pantoprazole (Protonix Tab) 40 mg DAILY@06 PO Last administered on 06/21/18at 05:01; Admin Dose 40 MG; Start 06/20/18 at 06:00 Lorazepam (Ativan) 1 mg Q8 PRN PO ANXIETY Last administered on 06/21/18at 17:52; Admin Dose 1 MG; Start 06/20/18 at 12:30 Escitalopram Oxalate (Lexapro) 10 mg DAILY PO Last administered on 06/21/18at 0 8:57; Admin Dose 10 MG; Start 06/20/18 at 12:30 Spironolactone (Aldactone) 25 mg DAILY NGT Last administered on 06/21/18at 09:07; Admin Dose 25 MG; Start 06/20/18 at 13:30 CANDICE BERNARD MD Jun 21, 2018 19:11
--- NOTE | 2018-06-21 19:41 | CONS ---
Date/Time of Note Date/Time of Note DATE: 06/21/18 TIME: 19:39 Assessment/Plan Assessment/Plan Hospital Course IMP: 1.CHF-diastolic acute on chronic. Reasonable volume status. laying flat EF 55% by echo this admit 2.HTN-currently borderline hypotension 3.Breast CA-metastatic to bones 4.anemia 5.Hyponatremia-improved 6.Compression fractures 7. UTI s/p course abx REcc: -Coreg\ACEI as tolerated only -Continue aldactone/lasix but will change to po and follow volume status closely -s/p abx course, f/u cx data -ongoing oncology eval Result Diagram: 06/21/187 06/21/187 Results 24hrs Laboratory Tests Test 06/21/18 04:27 White Blood Count 4.0 #L Red Blood Count 2.48 L Hemoglobin 8.0 L Hematocrit 25.3 L Mean Corpuscular Volume 102.0 H Mean Corpuscular Hemoglobin 32.3 Mean Corpuscular Hemoglobin Concent 31.6 L Red Cell Distribution Width 19.4 H Platelet Count 233 Mean Platelet Volume 9.3 Immature Granulocytes % 0.500 H Neutrophils % 33.4 L Lymphocytes % 46.5 Monocytes % 17.9 H Eosinophils % 0.2 Basophils % 1.5 Nucleated Red Blood Cells % 0.0 Immature Granulocytes # 0.020 Neutrophils # 1.3 L Lymphocytes # 1.9 Monocytes # 0.7 Eosinophils # 0.0 Basophils # 0.1 Nucleated Red Blood Cells # 0.0 Sodium Level 139 Potassium Level 4.1 Chloride Level 103 Carbon Dioxide Level 30 Anion Gap 6 Blood Urea Nitrogen 9 Creatinine 0.51 Est Glomerular Filtrat Rate mL/min > 60 Glucose Level 98 Calcium Level 8.4 Total Bilirubin 0.3 Direct Bilirubin 0.00 Indirect Bilirubin 0.3 Aspartate Amino Transf (AST/SGOT) 32 Alanine Aminotransferase (ALT/SGPT) 23 Alkaline Phosphatase 165 H Total Protein 5.9 L Albumin 2.7 L Globulin 3.20 Albumin/Globulin Ratio 0.84 Consultation Date/Type/Reason Admit Date/Time Apr 25, 2018 at 14:37 Initial Consult Date 04/26/18 Type of Consult cardiology Reason for Consultation CHF Requesting Provider: RUSS JEROME MD Exam/Review of Systems Vital Signs Vitals Vital Signs Date Temp Pulse Resp B/P (MAP) Pulse Ox O2 O2 Flow FiO2 Time Delivery Rate 06/21/18 98.5 98 18 96/52 (67) 92 Room Air 08:17 06/18/18 2.0 02:00 Intake and Output 06/20/18 06/20/18 06/21/18 1515:00 23:00 07:00 IntakeIntake Total 800 ml 200 ml OutputOutput Total 1 ml BalanceBalance 799 ml 200 ml Exam Review of Systems: CONSTITUTIONAL: No fevers, chills. PULMONARY: No sob CARDIOVASCULAR: No chest pain/palpitations GASTROINTESTINAL: No nausea/vomiting. GENITOURINARY: No hematuria/dysuria. MUSCULOSKELETAL: No myagias/arthalgias. PSYCHIATRIC: The patient denies depression. NEUROLOGIC: No weakness Constitutional: alert Psych: no complaints Head: normocephalic ENMT: mucosa pink and moist Neck: supple, jvd (9 cm water) Respiratory: diminished breath sounds (at bases/B) Cardiovascular: regular rate and rhythm Gastrointestinal: soft, non-tender Musculoskeletal: muscle tone (normal) Extremities: edema (trace/B) 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: other (No focal deficits) Medications Medications Current Medications Anastrozole (Arimidex) 1 mg DAILY PO Last administered on 06/21/18 08:59; Admin Dose 1 MG; Start 04/25/18 at 19:00 Zolpidem Tartrate (Ambien) 10 mg HS PRN PO INSOMNIA; Start 04/25/18 at 23:30 Magnesium Hydroxide (Milk Of Mag) 30 ml DAILY PRN PO CONSTIPATION Last administered on 06/20/18 05:45; Admin Dose 30 ML; Start 04/27/18 at 21:00 Acetaminophen (Tylenol Tab) 500 mg Q6H PRN PO MILD PAIN(1-3)OR ELEVATED TEMP Last administered on 06/02/18at 23:59; Admin Dose 500 MG; Start 05/30/18 at 20:30 Cholecalciferol (Vitamin D) 4,000 unit DAILY PO Last administered on 06/21/18 08:58; Admin Dose 4,000 UNIT; Start 06/02/18 at 09:00 Oxycodone HCl (Oxycontin) 20 mg BID PO Last administered on 06/21/18 08:58; Admin Dose 20 MG; Start 06/03/18 at 21:00 Morphine Sulfate (morphine) 9 mg Q4H PRN PO SEVERE PAIN LEVEL 7-10 Last administered on 06/21/18 17:52; Admin Dose 9 MG; Start 06/04/18 at 10:00 Carvedilol (Coreg) 3.125 mg BID PO Last administered on 06/20/18 10:05; Admin Dose 3.125 MG; Start 06/11/18 at 13:30 Furosemide (Lasix) 20 mg DAILY IV Last administered on 06/21/18 08:58; Admin Dose 20 MG; Start 06/17/18 at 09:00 Ondansetron HCl (Zofran Inj) 4 mg Q6H PRN IV NAUSEA AND/OR VOMITING Last administered on 06/17/18 07:54; Admin Dose 4 MG; Start 06/17/18 at 07:30 Enoxaparin Sodium (Lovenox) 40 mg Q24H SC Last administered on 06/21/18 17:54; Admin Dose 40 MG; Start 06/19/18 at 18:00 Enalapril Maleate (Vasotec) 2.5 mg DAILY PO Last administered on 06/20/18 10:07; Admin Dose 2.5 MG; Start 06/19/18 at 22:30 Lorazepam (Ativan) 1 mg Q8 PRN PO ANXIETY Last administered on 06/21/18 17:52; Admin Dose 1 MG; Start 06/20/18 at 12:30 Escitalopram Oxalate (Lexapro) 10 mg DAILY PO Last administered on 06/21/18 08:57; Admin Dose 10 MG; Start 06/20/18 at 12:30 Spironolactone (Aldactone) 25 mg DAILY NGT Last administered on 06/21/18 09:07; Admin Dose 25 MG; Start 06/20/18 at 13:30 Pantoprazole (Protonix Tab) 40 mg AC BREAKFAST DINNER PO ; Start 06/22/18 at 07:20 KAMILA TERESA Jun 21, 2018 19:41
[2018-06-21 19:57] VITALS: BP 110/65; PULSE 88; RESP 18
[2018-06-22 02:07] VITALS: BP 110/55; PULSE 70; RESP 18
[2018-06-22] MEDS: morphine LIQ (10 MG/5 ML) CUP PO PRN ×5 (04:31→23:40)
[2018-06-22] MEDS: PANTOPRAZOLE (EC) 40 MG TAB PO SCH ×2 (08:19→17:14)
[2018-06-22] MEDS: ENALAPRIL 2.5 MG TAB PO SCH (08:22)
[2018-06-22] MEDS: FUROSEMIDE 20 MG TAB PO SCH (08:23)
[2018-06-22] MEDS: CHOLECALCIFEROL 2,000 UNIT CAP PO SCH (08:24)
[2018-06-22] MEDS: oxyCODONE (CR) 20 MG TAB [oxyCONTIN] PO SCH ×2 (08:24→20:36)
[2018-06-22] MEDS: ESCITALOPRAM 10 MG TAB PO SCH (08:24)
[2018-06-22] MEDS: SPIRONOLACTONE 25 MG TAB NGT SCH (08:24)
[2018-06-22] MEDS: ANASTROZOLE 1 MG TAB PO SCH (08:25)
[2018-06-22 08:32] VITALS: BP 95/58; PULSE 95; RESP 18
--- NOTE | 2018-06-22 13:43 | CONS ---
Date/Time of Note Date/Time of Note DATE: 06/22/18 TIME: 13:42 Assessment/Plan Assessment/Plan Assessment/Plan 1.CHF-diastolic acute on chronic. Reasonable volume status. laying flat EF 55% by echo this admit - responded to gentle diuresis 2.HTN-currently borderline hypotension - stable 3.Breast CA-metastatic to bones- awaiting CHEMO Rx 4.anemia - no active bleed noted 5.Hyponatremia-improved 6.Compression fractures 7. UTI s/p course abx - no fevers now Result Diagram: 06/22/18 0431 06/22/18 0431 Results 24hrs Laboratory Tests Test 06/22/18 04:31 White Blood Count 3.2 L Red Blood Count 2.65 L Hemoglobin 8.5 L Hematocrit 27.2 L Mean Corpuscular Volume 102.6 H Mean Corpuscular Hemoglobin 32.1 Mean Corpuscular Hemoglobin Concent 31.3 L Red Cell Distribution Width 19.5 H Platelet Count 228 Mean Platelet Volume 9.2 Immature Granulocytes % 0.300 Neutrophils % 35.7 L Lymphocytes % 45.5 Monocytes % 16.0 H Eosinophils % 0.9 Basophils % 1.6 Nucleated Red Blood Cells % 0.0 Immature Granulocytes # 0.010 Neutrophils # 1.1 L Lymphocytes # 1.5 Monocytes # 0.5 Eosinophils # 0.0 Basophils # 0.1 Nucleated Red Blood Cells # 0.0 Sodium Level 138 Potassium Level 4.1 Chloride Level 105 Carbon Dioxide Level 30 Anion Gap 3 L Blood Urea Nitrogen 7 Creatinine 0.57 Est Glomerular Filtrat Rate mL/min > 60 Glucose Level 101 Calcium Level 8.8 Iron Level 95 Total Iron Binding Capacity 243 Percent Iron Saturation 39 Vitamin B12 Level > 1000 H Folate 9.1 Consultation Date/Type/Reason Admit Date/Time Apr 25, 2018 at 14:37 Initial Consult Date 04/26/18 Requesting Provider: RUSS JEROME MD 24 HR Interval Summary Free Text/Dictation No acute events - BP in good range - - responded to gentle diuresis ROS: No fever, no chills, no nausea, no vomiting, no diarrhea/constipation No recent weight changes No chest pain, no PND, no orthopnea - improved SOB/edema No dizziness, blurred vision No thirst, no heat or cold intolerance Exam/Review of Systems Vital Signs Vitals Vital Signs Date Temp Pulse Resp B/P (MAP) Pulse Ox O2 O2 Flow FiO2 Time Delivery Rate 06/22/18 98.0 95 18 95/58 (70) 90 Room Air 08:32 Intake and Output 06/21/18 06/21/18 06/22/18 1515:00 23:00 07:00 IntakeIntake Total 900 ml 300 ml OutputOutput Total 150 ml 200 ml BalanceBalance 750 ml 100 ml Exam General: WN/WD/NAD, AOx 3 HEENT: Unicetric/atraumatic/EOMI (follow commands) NECK: JVD elevated, no thyromegaly Lymph: no lymphadenopathy HEART: regular with no S3, II/ systolic murmur at apex LUNGS: Coarse sounds ABD: soft, NT, ND, +BS : Intact Neuro: non focal SKIN: chronic changes EXT: trace edema, R> L Medications Medications Current Medications Anastrozole (Arimidex) 1 mg DAILY PO Last administered on 06/22/18 08:25; Admin Dose 1 MG; Start 04/25/18 at 19:00 Zolpidem Tartrate (Ambien) 10 mg HS PRN PO INSOMNIA; Start 04/25/18 at 23:30 Magnesium Hydroxide (Milk Of Mag) 30 ml DAILY PRN PO CONSTIPATION Last administered on 06/20/18 05:45; Admin Dose 30 ML; Start 04/27/18 at 21:00 Acetaminophen (Tylenol Tab) 500 mg Q6H PRN PO MILD PAIN(1-3)OR ELEVATED TEMP Last administered on 06/02/18at 23:59; Admin Dose 500 MG; Start 05/30/18 at 20:30 Cholecalciferol (Vitamin D) 4,000 unit DAILY PO Last administered on 06/22/18 08:24; Admin Dose 4,000 UNIT; Start 06/02/18 at 09:00 Oxycodone HCl (Oxycontin) 20 mg BID PO Last administered on 06/22/18 08:24; Admin Dose 20 MG; Start 06/03/18 at 21:00 Morphine Sulfate (morphine) 9 mg Q4H PRN PO SEVERE PAIN LEVEL 7-10 Last administered on 06/22/18 08:24; Admin Dose 9 MG; Start 06/04/18 at 10:00 Carvedilol (Coreg) 3.125 mg BID PO Last administered on 06/21/18 20:29; Admin D ose 3.125 MG; Start 06/11/18 at 13:30 Ondansetron HCl (Zofran Inj) 4 mg Q6H PRN IV NAUSEA AND/OR VOMITING Last administered on 06/17/18at 07:54; Admin Dose 4 MG; Start 06/17/18 at 07:30 Enoxaparin Sodium (Lovenox) 40 mg Q24H SC Last administered on 06/21/18 17:54; Admin Dose 40 MG; Start 06/19/18 at 18:00 Enalapril Maleate (Vasotec) 2.5 mg DAILY PO Last administered on 06/20/18 10:07; Admin Dose 2.5 MG; Start 06/19/18 at 22:30 Lorazepam (Ativan) 1 mg Q8 PRN PO ANXIETY Last administered on 06/21/18 17:52; Admin Dose 1 MG; Start 06/20/18 at 12:30 Escitalopram Oxalate (Lexapro) 10 mg DAILY PO Last administered on 06/22/18 08:24; Admin Dose 10 MG; Start 06/20/18 at 12:30 Spironolactone (Aldactone) 25 mg DAILY NGT Last administered on 06/22/18 08:24; Admin Dose 25 MG; Start 06/20/18 at 13:30 Pantoprazole (Protonix Tab) 40 mg AC BREAKFAST DINNER PO Last administered on 06/22/18 08:19; Admin Dose 40 MG; Start 06/22/18 at 07:20 Furosemide (Lasix) 20 mg DAILY PO Last administered on 06/22/18 08:23; Admin Dose 20 MG; Start 06/22/18 at 09:00 Epoetin Cr (Epogen (Oncology)) 40,000 units NOTE SC ; Start 06/22/18 at 13:30; Status EMILY FORRESTER MD Jun 22, 2018 13:43
--- NOTE | 2018-06-22 14:23 | CONS ---
Date/Time of Note Date/Time of Note DATE: 06/22/18 TIME: 14:22 Assessment/Plan Assessment/Plan Hospital Course Impression: 1. Down-trending h/h, stable since 06/21/18 2. Anemia, r/o GI bleed 3. Cancer of the left breast. Exact type at this time unknown.MULTIPLE BONY METS, PULMONARY METS 4. Severe pain in the interscapular and lumbar sacral area most probably metastatic lesion possible femoral fracture. pathologic fracture of T9 with 60% of loss of height. Neurosurgical f/u. 5. Gallstones and sludge in the gallbladder. No evidence of cholecystitis. Recommendations: 1. check stool for occult blood 2. increase protonix to bid dosing 3. consider EGD and colonoscopy if stool for occult blood is positive Result Diagram: 06/22/1843006/22/18 0431 Results 24hrs Laboratory Tests Test 06/22/18 04:31 White Blood Count 3.2 L Red Blood Count 2.65 L Hemoglobin 8.5 L Hematocrit 27.2 L Mean Corpuscular Volume 102.6 H Mean Corpuscular Hemoglobin 32.1 Mean Corpuscular Hemoglobin Concent 31.3 L Red Cell Distribution Width 19.5 H Platelet Count 228 Mean Platelet Volume 9.2 Immature Granulocytes % 0.300 Neutrophils % 35.7 L Lymphocytes % 45.5 Monocytes % 16.0 H Eosinophils % 0.9 Basophils % 1.6 Nucleated Red Blood Cells % 0.0 Immature Granulocytes # 0.010 Neutrophils # 1.1 L Lymphocytes # 1.5 Monocytes # 0.5 Eosinophils # 0.0 Basophils # 0.1 Nucleated Red Blood Cells # 0.0 Sodium Level 138 Potassium Level 4.1 Chloride Level 105 Carbon Dioxide Level 30 Anion Gap 3 L Blood Urea Nitrogen 7 Creatinine 0.57 Est Glomerular Filtrat Rate mL/min > 60 Glucose Level 101 Calcium Level 8.8 Iron Level 95 Total Iron Binding Capacity 243 Percent Iron Saturation 39 Vitamin B12 Level > 1000 H Folate 9.1 Consultation Date/Type/Reason Admit Date/Time Apr 25, 2018 at 14:37 Initial Consult Date 06/21/18 Type of Consult gastroenterology Requesting Provider: RUSS JEROME MD 24 HR Interval Summary Free Text/Dictation no n/v, tolerating po, no abdominal pain, no melena or hematochezia Exam/Review of Systems Vital Signs Vitals Vital Signs Date Temp Pulse Resp B/P (MAP) Pulse Ox O2 O2 Flow FiO2 Time Delivery Rate 06/22/18 98.0 95 18 95/58 (70) 90 Room Air 08:32 Intake and Output 06/21/18 06/21/18 06/22/18 1414:59 22:59 06:59 IntakeIntake Total 900 ml 300 ml OutputOutput Total 150 ml 200 ml BalanceBalance 750 ml 100 ml Exam Constitutional: alert, oriented, well developed, obese Psych: no complaints, nl mood/affect Head: normocephalic, atraumatic Eyes: nl conjunctiva, EOMI, nl lids, nl sclera ENMT: nl external ears & nose, nl lips & teeth, nl nasal mucosa & septum, mucosa pink and moist Neck: supple, non-tender Respiratory: clear to auscultation, normal air movement Cardiovascular: regular rate and rhythm, nl pulses Gastrointestinal: soft, non-tender, bowel sounds Medications Medications Current Medications Anastrozole (Arimidex) 1 mg DAILY PO Last administered on 06/22/18 08:25; Admin Dose 1 MG; Start 04/25/18 at 19:00 Zolpidem Tartrate (Ambien) 10 mg HS PRN PO INSOMNIA; Start 04/25/18 at 23:30 Magnesium Hydroxide (Milk Of Mag) 30 ml DAILY PRN PO CONSTIPATION Last administered on 06/20/18 05:45; Admin Dose 30 ML; Start 04/27/18 at 21:00 Acetaminophen (Tylenol Tab) 500 mg Q6H PRN PO MILD PAIN(1-3)OR ELEVATED TEMP Last administered on 06/02/18at 23:59; Admin Dose 500 MG; Start 05/30/18 at 20:30 Cholecalciferol (Vitamin D) 4,000 unit DAILY PO Last administered on 06/22/18 08:24; Admin Dose 4,000 UNIT; Start 06/02/18 at 09:00 Oxycodone HCl (Oxycontin) 20 mg BID PO Last administered on 06/22/18 08:24; Adm in Dose 20 MG; Start 06/03/18 at 21:00 Morphine Sulfate (morphine) 9 mg Q4H PRN PO SEVERE PAIN LEVEL 7-10 Last administered on 06/22/18 08:24; Admin Dose 9 MG; Start 06/04/18 at 10:00 Carvedilol (Coreg) 3.125 mg BID PO Last administered on 06/21/18 20:29; Admin Dose 3.125 MG; Start 06/11/18 at 13:30 Ondansetron HCl (Zofran Inj) 4 mg Q6H PRN IV NAUSEA AND/OR VOMITING Last administered on 06/17/18 07:54; Admin Dose 4 MG; Start 06/17/18 at 07:30 Enoxaparin Sodium (Lovenox) 40 mg Q24H SC Last administered on 06/21/18 17:54; Admin Dose 40 MG; Start 06/19/18 at 18:00 Enalapril Maleate (Vasotec) 2.5 mg DAILY PO Last administered on 06/20/18 10:07; Admin Dose 2.5 MG; Start 06/19/18 at 22:30 Lorazepam (Ativan) 1 mg Q8 PRN PO ANXIETY Last administered on 06/21/18 17:52; Admin Dose 1 MG; Start 06/20/18 at 12:30 Escitalopram Oxalate (Lexapro) 10 mg DAILY PO Last administered on 06/22/18 08 :24; Admin Dose 10 MG; Start 06/20/18 at 12:30 Spironolactone (Aldactone) 25 mg DAILY NGT Last administered on 06/22/18 08:24; Admin Dose 25 MG; Start 06/20/18 at 13:30 Pantoprazole (Protonix Tab) 40 mg AC BREAKFAST DINNER PO Last administered on 06/22/18 08:19; Admin Dose 40 MG; Start 06/22/18 at 07:20 Furosemide (Lasix) 20 mg DAILY PO Last administered on 06/22/18 08:23; Admin Dose 20 MG; Start 06/22/18 at 09:00 Epoetin Cr (Epogen (Oncology)) 40,000 units Sa@1700 SC ; Start 06/22/18 at 17:00 CANDICE BERNARD MD Jun 22, 2018 14:23
[2018-06-22] MEDS: MAGNESIUM HYDROXIDE 30ML CUP PO PRN (14:27)
[2018-06-22] MEDS ORDERED: EPOETIN 10000 UNITS/ML VIAL (ONCOLOGY) SC SCH (17:00)
[2018-06-22] MEDS: ENOXAPARIN 40 MG/0.4 ML SYG SC SCH (17:18)
[2018-06-22 19:35] VITALS: BP 122/88; PULSE 103; RESP 20
--- NOTE | 2018-06-22 20:23 | CONS ---
Date/Time of Note Date/Time of Note DATE: 06/22/18 TIME: 20:22 Assessment/Plan Assessment/Plan Hospital Course 1215 Alert, ambulating with a walker, nad Indwelling: R chest Port-A-Cath 05/29/18 Physical examination: Obese well-developed middle-aged Swazi-speaking woman who is alert in no distress. Head atraumatic normocephalic sclera nonicteric vehicle mucosa pink. Neck is supple chest rise symmetrical breath sounds diminished bases. Heart: S1-S2. Abdomen soft bowel sounds present extremities without cyanosis, left upper extremity with edema Assessment: 1. Status post neutropenic fevers 2. Metastatic breast cancer 3. Status post urinary tract infection 4. Obesity 5. Anasarca Plan: Remains unchanged, stable off antibiotics Result Diagram: 06/22/181 06/22/18 0431 Results 24hrs Laboratory Tests Test 06/22/18 04:31 White Blood Count 3.2 L Red Blood Count 2.65 L Hemoglobin 8.5 L Hematocrit 27.2 L Mean Corpuscular Volume 102.6 H Mean Corpuscular Hemoglobin 32.1 Mean Corpuscular Hemoglobin Concent 31.3 L Red Cell Distribution Width 19.5 H Platelet Count 228 Mean Platelet Volume 9.2 Immature Granulocytes % 0.300 Neutrophils % 35.7 L Lymphocytes % 45.5 Monocytes % 16.0 H Eosinophils % 0.9 Basophils % 1.6 Nucleated Red Blood Cells % 0.0 Immature Granulocytes # 0.010 Neutrophils # 1.1 L Lymphocytes # 1.5 Monocytes # 0.5 Eosinophils # 0.0 Basophils # 0.1 Nucleated Red Blood Cells # 0.0 Sodium Level 138 Potassium Level 4.1 Chloride Level 105 Carbon Dioxide Level 30 Anion Gap 3 L Blood Urea Nitrogen 7 Creatinine 0.57 Est Glomerular Filtrat Rate mL/min > 60 Glucose Level 101 Calcium Level 8.8 Iron Level 95 Total Iron Binding Capacity 243 Percent Iron Saturation 39 Vitamin B12 Level > 1000 H Folate 9.1 Consultation Date/Type/Reason Admit Date/Time Apr 25, 2018 at 14:37 Initial Consult Date 04/26/18 Type of Consult ID Requesting Provider: RUSS JEROME MD Exam/Review of Systems Vital Signs Vitals Vital Signs Date Temp Pulse Resp B/P (MAP) Pulse Ox O2 O2 Flow FiO2 Time Delivery Rate 06/22/18 98.0 95 18 95/58 (70) 90 Room Air 08:32 Intake and Output 06/21/18 06/21/18 06/22/18 1515:00 23:00 07:00 IntakeIntake Total 900 ml 300 ml OutputOutput Total 150 ml 200 ml BalanceBalance 750 ml 100 ml Medications Medications Current Medications Anastrozole (Arimidex) 1 mg DAILY PO Last administered on 06/22/18 08:25; Admin Dose 1 MG; Start 04/25/18 at 19:00 Zolpidem Tartrate (Ambien) 10 mg HS PRN PO INSOMNIA; Start 04/25/18 at 23:30 Magnesium Hydroxide (Milk Of Mag) 30 ml DAILY PRN PO CONSTIPATION Last administered on 06/22/18 14:27; Admin Dose 30 ML; Start 04/27/18 at 21:00 Acetaminophen (Tylenol Tab) 500 mg Q6H PRN PO MILD PAIN(1-3)OR ELEVATED TEMP Last administered on 06/02/18at 23:59; Admin Dose 500 MG; Start 05/30/18 at 20: 30 Cholecalciferol (Vitamin D) 4,000 unit DAILY PO Last administered on 06/22/18 08:24; Admin Dose 4,000 UNIT; Start 06/02/18 at 09:00 Oxycodone HCl (Oxycontin) 20 mg BID PO Last administered on 06/22/18 08:24; Admin Dose 20 MG; Start 06/03/18 at 21:00 Morphine Sulfate (morphine) 9 mg Q4H PRN PO SEVERE PAIN LEVEL 7-10 Last administered on 06/22/18 18:45; Admin Dose 9 MG; Start 06/04/18 at 10:00 Carvedilol (Coreg) 3.125 mg BID PO Last administered on 06/21/18 20:29; Admin Dose 3.125 MG; Start 06/11/18 at 13:30 Ondansetron HCl (Zofran Inj) 4 mg Q6H PRN IV NAUSEA AND/OR VOMITING Last adm inistered on 06/17/18at 07:54; Admin Dose 4 MG; Start 06/17/18 at 07:30 Enoxaparin Sodium (Lovenox) 40 mg Q24H SC Last administered on 06/22/18 17:18; Admin Dose 40 MG; Start 06/19/18 at 18:00 Enalapril Maleate (Vasotec) 2.5 mg DAILY PO Last administered on 06/20/18 10:07; Admin Dose 2.5 MG; Start 06/19/18 at 22:30 Lorazepam (Ativan) 1 mg Q8 PRN PO ANXIETY Last administered on 06/21/18 17:52; Admin Dose 1 MG; Start 06/20/18 at 12:30 Escitalopram Oxalate (Lexapro) 10 mg DAILY PO Last administered on 06/22/18 08:24; Admin Dose 10 MG; Start 06/20/18 at 12:30 Spironolactone (Aldactone) 25 mg DAILY NGT Last administered on 06/22/18 08:24; Admin Dose 25 MG; Start 06/20/18 at 13:30 Pantoprazole (Protonix Tab) 40 mg AC BREAKFAST DINNER PO Last administered on 06/22/18 17:14; Admin Dose 40 MG; Start 06/22/18 at 07:20 Furosemide (Lasix) 20 mg DAILY PO Last administered on 06/22/18 08:23; Admin Dose 20 MG; Start 06/22/18 at 09:00 Epoetin Cr (Epogen (Oncology)) 40,000 units Sa@1700 SC Last administered on 06/22/18 17:16; Admin Dose 10,000 UNITS; Start 06/22/18 at 17:00 YUAN ROMERO NP Jun 22, 2018 20:22
[2018-06-22] MEDS: ONDANSETRON 4 MG INJ IV PRN (20:35)
--- NOTE | 2018-06-22 22:38 | PN ---
Date/Time of Note Date/Time of Note DATE: 06/22/18 TIME: 22:36 Assessment/Plan VTE Prophylaxis Risk score (from Nsg)>0 risk: 6 SCD applied (from Nsg): Yes SCD contraindicated: low risk/ambulating Pharmacological prophylaxis: LMWH Lines/Catheters IV Catheter Type (from Nrsg): port-a-cath Central line still needed: No Urinary Cath still in place: No Reason Cath still needed: urinary retention Assessment/Plan Assessment/Plan 1. Cancer of the left breast. Exact type at this time unknown.MULTIPLE BONY METS, PULMONARY METS 2. Severe pain in the interscapular and lumbar sacral area most probably metastatic lesion possible femoral fracture. pathologic fracture of T9 with 60% of loss of height. Neurosurgical f/u. 3. Obesity. 4. Weight loss 60 pounds during the last 2 years by diet 5. PMS. 6. Myopia. 7. Anemia chronic disease with a drop of her hematocrit to 27 and regaining to 30 without any measures. Latest results 28. Protonix was added. Today hematocrit is 26. Will recheck tomorrow 8. Anxiety disorder. Claustrophobia. Increase Ativan to 1 mg every 8 as needed at Lexapro 10 mg daily. 9. Posttraumatic stress disorder. 10. Pain in the left forearm with a history of fracture of ulna and radius. 11. Tachycardia 12. Hypoxemia at night marginal improved after 2 L of nasal cannula oxygen. 13. Deconditioning 14. 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 15. Pain syndrome. Today the most painful zone is in the right hip area. X- ray did not show any fractures. 16. Hyponatremia- resolved 17. Leucopenia-improved. 18. Neutropenia with occasional fever and chills. Hold discharge, until she is stable. 19. Hypoalbuminemia 2.4 now 2.7 20.Right sided cp after catheter insertion and correction less discomfort. 21. Decreased edema both lower extremities with hypotension-improving On abdominal us:. Limited study as described above. 2. Diffusely heterogeneous liver consistent with multiple masses. 3. Gallstones and sludge in the gallbladder. No evidence of cholecystitis. 4. Proximal abdominal aorta not visualized. 5. Spleen not visualized. 6. Otherwise unremarkable abdomen and retroperitoneum ultrasound. On CZR:1. No significant interval change. 2. Cardiomegaly. 3. Bibasilar opacities may represent atelectasis or infiltrate. 4. Stable left pleural effusion. Result Diagram: 06/22/18 0431 06/22/18 0431 Results 24hrs Laboratory Tests Test 06/22/18 04:31 White Blood Count 3.2 L Red Blood Count 2.65 L Hemoglobin 8.5 L Hematocrit 27.2 L Mean Corpuscular Volume 102.6 H Mean Corpuscular Hemoglobin 32.1 Mean Corpuscular Hemoglobin Concent 31.3 L Red Cell Distribution Width 19.5 H Platelet Count 228 Mean Platelet Volume 9.2 Immature Granulocytes % 0.300 Neutrophils % 35.7 L Lymphocytes % 45.5 Monocytes % 16.0 H Eosinophils % 0.9 Basophils % 1.6 Nucleated Red Blood Cells % 0.0 Immature Granulocytes # 0.010 Neutrophils # 1.1 L Lymphocytes # 1.5 Monocytes # 0.5 Eosinophils # 0.0 Basophils # 0.1 Nucleated Red Blood Cells # 0.0 Sodium Level 138 Potassium Level 4.1 Chloride Level 105 Carbon Dioxide Level 30 Anion Gap 3 L Blood Urea Nitrogen 7 Creatinine 0.57 Est Glomerular Filtrat Rate mL/min > 60 Glucose Level 101 Calcium Level 8.8 Iron Level 95 Total Iron Binding Capacity 243 Percent Iron Saturation 39 Vitamin B12 Level > 1000 H Folate 9.1 Subjective 24 Hr Interval Summary Free Text/Dictation Left leg swelling is less visible. right leg swelling still is more prominent. I am able to sit without the help but it makes my right hip and back pain almost intolerably painful now when I am sitting well pain is less intense pain medications are helping me sufficiently where they do not want to take high doses although there is a pain Constitutional: improved, chills, poor po, requiring O2; No no complaints, No diaphoresis, No disoriented, No febrile, No requiring IVF, No other Eyes: No no complaints, No pain, No discharge, No redness, No visual change, No other ENT: No no complaints, No bleeding, No pain, No congestion, No discharge, No dysphagia, No sore throat, No other Respiratory: cough; No no complaints, No pain, No pleuritic pain, No shortness of breath, No sputum, No wheezing, No other Cardiovascular: chest pain, edema; No no complaints, No lightheadedness, No orthopenea, No palpitations, No paroxysmal nocturnal dyspnea, No other Gastrointestinal: constipation (No BM times 2 days specifically asked the patient to follow-up for melena and possible blood in the stool which she denied so far.), flatus, passing stool; No no complaints, No pain, No blood, No decreased appetite, No diarrhea, No nausea, No vomiting, No other Genitourinary: dysuria, flank pain; No no complaints, No bleeding, No discharge, No hematuria, No other Musculoskeletal: back pain, bone/joint pain, neck pain; No no complaints, No restricted range of motion, No swelling, No other Skin: pruritis; No no complaints, No bruising, No erythema, No laceration, No rash, No skin lesions, No other Neurologic: dizziness, headache; No no complaints, No confusion, No focal-weakness, No syncope, No seizure, No other Endocrine: dry skin; No no complaints, No polyuria, No polydypsia, No temp intolerance, No other Lymphatic: No no complaints, No adenopathy, No tender nodes, No lymphadema, No other Psychological: anxiety, depression; No no complaints, No nl mood/affect, No confusion, No suicidal, No other Immunologic: No no complaints, No immunodeficiency, No pruritis, No rhinitis, No urticaria, No other Exam/Review of Systems Vital Signs Vitals Vital Signs Date Temp Pulse Resp B/P (MAP) Pulse Ox O2 O2 Flow FiO2 Time Delivery Rate 06/22/18 98.3 103 20 122/88 93 Room Air 19:35 (99) Intake and Output 06/21/18 06/21/18 06/22/18 1515:00 23:00 07:00 IntakeIntake Total 900 ml 300 ml OutputOutput Total 150 ml 200 ml BalanceBalance 750 ml 100 ml Exam Constitutional: alert, oriented, well developed, distress, frail Psych: anxiety; No no complaints, No nl mood/affect, No confusion, No depression, No suici davi, No other Head: normocephalic, atraumatic; No lacerations, No hematomas, No other Eyes: EOMI, nl lids, PERRL; No nl conjunctiva, No nl sclera, No icteric, No fundi, disc, No other ENMT: No nl external ears & nose, No nl lips & teeth, No nl nasal mucosa & septum, No mucosa pink and moist, No intubated, No tympanic membranes, No other Neck: jvd, bruits, nuchal rigidity; No supple, No non-tender, No masses, No thyromegaly, No other Respiratory: clear to auscultation, normal air movement, diminished breath sounds; No congested cough, No crackles/rales, No intercostal retraction, No labored breathing, No respirations, No tactile fremitus, No wheezing, No other Cardiovascular: regular rate and rhythm, nl pulses, bruits, edema; No diastolic murmur, No gallop, No irregular rhythm, No jugular venous distention (JVD), No murmurs/extra sounds, No rub, No systolic murmur, No S3, No S4, No other Gastrointestinal: soft, nl liver, spleen, bowel sounds; No non-tender, No ascites, No distended, No firm, No hepatomegaly, No mass, No rebound or guarding, No splenomegaly, No surgical scars, No tender, No other Genitourinary - Female: nl adnexae, nl external genitalia; No CMT, No CVA tenderness, No uterus, No other Musculoskeletal: joint tenderness, muscle tone, muscle weakness, other (Unstable gait due to weakness and pain.); No nl extremities to inspection, No nl gait and stance, No range of motion, No spine non-tender, No swelling Extremities: No normal pulses, No calf tenderness, No cyanosis, No clubbing, No edema, No pitting pedal edema, No palpable cord, No tenderness, No other 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: [employer]UM[employer] 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; No nl mental status, No nl speech, No nl strength, No confused, No DTR's symmetric, No focal weakness, No lethargic, No numbness, No reflexes, No unresponsive, No other Skin: nl turgor; No rash or lesions, No diaphoresis, No ecchymosis, No laceration, No puncture, No other Lymph: No nl lymph nodes, No enlarged, No nontender, No other Medications Medications Current Medications Anastrozole (Arimidex) 1 mg DAILY PO Last administered on 06/22/18at 08:25; Admin Dose 1 MG; Start 04/25/18 at 19:00 Zolpidem Tartrate (Ambien) 10 mg HS PRN PO INSOMNIA; Start 04/25/18 at 23:30 Magnesium Hydroxide (Milk Of Mag) 30 ml DAILY PRN PO CONSTIPATION Last administered on 06/22/18 14:27; Admin Dose 30 ML; Start 04/27/18 at 21:00 Acetaminophen (Tylenol Tab) 500 mg Q6H PRN PO MILD PAIN(1-3)OR ELEVATED TEMP Last administered on 06/02/18 23:59; Admin Dose 500 MG; Start 05/30/18 at 20:30 Cholecalciferol (Vitamin D) 4,000 unit DAILY PO Last administered on 06/22/18 08:24; Admin Dose 4,000 UNIT; Start 06/02/18 at 09:00 Oxycodone HCl (Oxycontin) 20 mg BID PO Last administered on 06/22/18 20:36; Admin Dose 20 MG; Start 06/03/18 at 21:00 Morphine Sulfate (morphine) 9 mg Q4H PRN PO SEVERE PAIN LEVEL 7-10 Last adm inistered on 06/22/18 18:45; Admin Dose 9 MG; Start 06/04/18 at 10:00 Carvedilol (Coreg) 3.125 mg BID PO Last administered on 06/21/18 20:29; Admin Dose 3.125 MG; Start 06/11/18 at 13:30 Ondansetron HCl (Zofran Inj) 4 mg Q6H PRN IV NAUSEA AND/OR VOMITING Last administered on 06/22/18 20:35; Admin Dose 4 MG; Start 06/17/18 at 07:30 Enoxaparin Sodium (Lovenox) 40 mg Q24H SC Last administered on 06/22/18 17:18; Admin Dose 40 MG; Start 06/19/18 at 18:00 Enalapril Maleate (Vasotec) 2.5 mg DAILY PO Last administered on 06/20/18 10:07; Admin Dose 2.5 MG; Start 06/19/18 at 22:30 Lorazepam (Ativan) 1 mg Q8 PRN PO ANXIETY Last administered on 06/21/18 17:52; Admin Dose 1 MG; Start 06/20/18 at 12:30 Escitalopram Oxalate (Lexapro) 10 mg DAILY PO Last administered on 06/22/18 08:24; Admin Dose 10 MG; Start 06/20/18 at 12:30 Spironolactone (Aldactone) 25 mg DAILY NGT Last administered on 06/22/18at 08:24; Admin Dose 25 MG; Start 06/20/18 at 13:30 Pantoprazole (Protonix Tab) 40 mg AC BREAKFAST DINNER PO Last administered on 06/22/18at 17:14; Admin Dose 40 MG; Start 06/22/18 at 07:20 Furosemide (Lasix) 20 mg DAILY PO Last administered on 06/22/18 08:23; Admin Dose 20 MG; Start 06/22/18 at 09:00 Epoetin Cr (Epogen (Oncology)) 40,000 units Sa@1700 SC Last administered on 06/22/18at 17:16; Admin Dose 10,000 UNITS; Start 06/22/18 at 17:00 RUSS JEROME MD Jun 22, 2018 22:38
[2018-06-23] MEDS: morphine LIQ (10 MG/5 ML) CUP PO PRN ×4 (04:28→22:07)
[2018-06-23] MEDS: PANTOPRAZOLE (EC) 40 MG TAB PO SCH ×2 (06:14→18:52)
[2018-06-23 08:02] VITALS: BP 100/55; PULSE 99; RESP 16
[2018-06-23] MEDS: CHOLECALCIFEROL 2,000 UNIT CAP PO SCH (08:57)
[2018-06-23] MEDS: oxyCODONE (CR) 20 MG TAB [oxyCONTIN] PO SCH ×2 (08:57→21:09)
[2018-06-23] MEDS: ESCITALOPRAM 10 MG TAB PO SCH (08:57)
[2018-06-23] MEDS: ANASTROZOLE 1 MG TAB PO SCH (08:58)
[2018-06-23] MEDS: SPIRONOLACTONE 25 MG TAB NGT SCH (08:58)
[2018-06-23] MEDS: FUROSEMIDE 20 MG TAB PO SCH (08:59)
[2018-06-23] MEDS: ENALAPRIL 2.5 MG TAB PO SCH (09:00)
--- NOTE | 2018-06-23 11:01 | CONS ---
Date/Time of Note Date/Time of Note DATE: 06/23/18 TIME: 10:59 Assessment/Plan Assessment/Plan Hospital Course Impression: 1. Down-trending h/h, stable since 06/21/18 2. Anemia, r/o GI bleed, occult blood negative on 06/20/18 3. Cancer of the left breast. Exact type at this time unknown.MULTIPLE BONY METS, PULMONARY METS 4. Severe pain in the interscapular and lumbar sacral area most probably metastatic lesion possible femoral fracture. pathologic fracture of T9 with 60% of loss of height. Neurosurgical f/u. 5. Gallstones and sludge in the gallbladder. No evidence of cholecystitis. Recommendations: 1. repeat stool for occult blood to confirm 2. protonix to bid dosing 3. consider EGD and colonoscopy if stool for occult blood is positive 4. Dr. Douglass to take over GI care of this patient tomorrow Result Diagram: 06/23/18 0422 06/23/18 0422 Results 24hrs Laboratory Tests Test 06/23/18 04:22 06/23/18 05:00 White Blood Count 3.9 #L Red Blood Count 2.68 L Hemoglobin 8.5 L Hematocrit 27.8 L Mean Corpuscular Volume 103.7 H Mean Corpuscular Hemoglobin 31.7 Mean Corpuscular Hemoglobin Concent 30.6 L Red Cell Distribution Width 19.1 H Platelet Count 235 Mean Platelet Volume 9.4 Immature Granulocytes % 0.500 H Neutrophils % 35.3 L Lymphocytes % 44.2 Monocytes % 17.0 H Eosinophils % 1.0 Basophils % 2.0 Nucleated Red Blood Cells % 0.0 Immature Granulocytes # 0.020 Neutrophils # 1.4 L Lymphocytes # 1.7 Monocytes # 0.7 Eosinophils # 0.0 Basophils # 0.1 Nucleated Red Blood Cells # 0.0 Sodium Level 137 Potassium Level 4.6 Chloride Level 102 Carbon Dioxide Level 31 Anion Gap 4 L Blood Urea Nitrogen 9 Creatinine 0.57 Est Glomerular Filtrat Rate mL/min > 60 Glucose Level 96 Calcium Level 8.7 Urine Color YELLOW Urine Clarity SLIGHTLY CLOUDY A Urine pH 6.0 Urine Specific [place] 1.013 Urine Ketones NEGATIVE Urine Nitrite NEGATIVE Urine Bilirubin NEGATIVE Urine Urobilinogen 2+ H Urine Leukocyte Esterase 1+ H Urine Microscopic RBC 0 Urine Microscopic WBC 18 H Urine Bacteria FEW A Urine Mucus FEW A Urine Hemoglobin 1+ H Urine Glucose NEGATIVE Urine Total Protein NEGATIVE Consultation Date/Type/Reason Admit Date/Time Apr 25, 2018 at 14:37 Initial Consult Date 06/21/18 Type of Consult gastroenterology Requesting Provider: RUSS JEROME MD 24 HR Interval Summary Free Text/Dictation denied melena, hematochezia, coffee ground emesis or hematemesis Exam/Review of Systems Vital Signs Vitals Vital Signs Date Temp Pulse Resp B/P (MAP) Pulse Ox O2 O2 Flow FiO2 Time Delivery Rate 06/23/18 97.8 99 16 100/55 81 08:02 (70) 06/22/18 Room Air 19:35 Intake and Output 06/22/18 06/22/18 06/23/18 1515:00 23:00 07:00 IntakeIntake Total 200 ml 200 ml 200 ml BalanceBalance 200 ml 200 ml 200 ml Exam Constitutional: alert, oriented, well developed, obese Psych: no complaints, nl mood/affect Head: normocephalic, atraumatic Eyes: nl conjunctiva, EOMI, nl lids ENMT: nl external ears & nose, nl lips & teeth, nl nasal mucosa & septum Neck: supple, non-tender Respiratory: clear to auscultation, normal air movement Cardiovascular: regular rate and rhythm, nl pulses Gastrointestinal: soft, non-tender, bowel sounds Medications Medications Current Medications Anastrozole (Arimidex) 1 mg DAILY PO Last administered on 06/23/18 08:58; Admin Dose 1 MG; Start 04/25/18 at 19:00 Zolpidem Tartrate (Ambien) 10 mg HS PRN PO INSOMNIA; Start 04/25/18 at 23:30 Magnesium Hydroxide (Milk Of Mag) 30 ml DAILY PRN PO CONSTIPATION Last administ ered on 06/22/18 14:27; Admin Dose 30 ML; Start 04/27/18 at 21:00 Acetaminophen (Tylenol Tab) 500 mg Q6H PRN PO MILD PAIN(1-3)OR ELEVATED TEMP Last administered on 06/02/18at 23:59; Admin Dose 500 MG; Start 05/30/18 at 20:30 Cholecalciferol (Vitamin D) 4,000 unit DAILY PO Last administered on 06/23/18 08:57; Admin Dose 4,000 UNIT; Start 06/02/18 at 09:00 Oxycodone HCl (Oxycontin) 20 mg BID PO Last administered on 06/23/18 08:57; Admin Dose 20 MG; Start 06/03/18 at 21:00 Morphine Sulfate (morphine) 9 mg Q4H PRN PO SEVERE PAIN LEVEL 7-10 Last administered on 06/23/18 09:02; Admin Dose 9 MG; Start 06/04/18 at 10:00 Carvedilol (Coreg) 3.125 mg BID PO Last administered on 06/21/18 20:29; Admin Dose 3.125 MG; Start 06/11/18 at 13:30 Ondansetron HCl (Zofran Inj) 4 mg Q6H PRN IV NAUSEA AND/OR VOMITING Last administered on 06/22/18 20:35; Admin Dose 4 MG; Start 06/17/18 at 07:30 Enoxaparin Sodium (Lovenox) 40 mg Q24H SC Last administered on 06/22/18 17:18; Admin Dose 40 MG; Start 06/19/18 at 18:00 Enalapril Maleate (Vasotec) 2.5 mg DAILY PO Last administered on 06/20/18 10:07; Admin Dose 2.5 MG; Start 06/19/18 at 22:30 Lorazepam (Ativan) 1 mg Q8 PRN PO ANXIETY Last administered on 06/21/18 17:52; Admin Dose 1 MG; Start 06/20/18 at 12:30 Escitalopram Oxalate (Lexapro) 10 mg DAILY PO Last administered on 06/23/18 08:57; Admin Dose 10 MG; Start 06/20/18 at 12:30 Spironolactone (Aldactone) 25 mg DAILY NGT Last administered on 06/23/18 08:58; Admin Dose 25 MG; Start 06/20/18 at 13:30 Pantoprazole (Protonix Tab) 40 mg AC BREAKFAST DINNER PO Last administered on 06/23/18 06:14; Admin Dose 40 MG; Start 06/22/18 at 07:20 Furosemide (Lasix) 20 mg DAILY PO Last administered on 06/23/18 08:59; Admin Dose 20 MG; Start 06/22/18 at 09:00 Epoetin Cr (Epogen (Oncology)) 40,000 units Sa@1700 SC Last administered on 1/5/19at 17:16; Admin Dose 10,000 UNITS; Start 06/22/18 at 17:00 CANDICE BERNARD MD Jun 23, 2018 11:01
--- NOTE | 2018-06-23 13:02 | CONS ---
Date/Time of Note Date/Time of Note DATE: 06/23/18 TIME: 12:58 Assessment/Plan Assessment/Plan Result Diagram: 06/23/18 0422 06/23/18 0422 Results 24hrs Laboratory Tests Test 06/23/18 04:22 06/23/18 05:00 White Blood Count 3.9 #L Red Blood Count 2.68 L Hemoglobin 8.5 L Hematocrit 27.8 L Mean Corpuscular Volume 103.7 H Mean Corpuscular Hemoglobin 31.7 Mean Corpuscular Hemoglobin Concent 30.6 L Red Cell Distribution Width 19.1 H Platelet Count 235 Mean Platelet Volume 9.4 Immature Granulocytes % 0.500 H Neutrophils % 35.3 L Lymphocytes % 44.2 Monocytes % 17.0 H Eosinophils % 1.0 Basophils % 2.0 Nucleated Red Blood Cells % 0.0 Immature Granulocytes # 0.020 Neutrophils # 1.4 L Lymphocytes # 1.7 Monocytes # 0.7 Eosinophils # 0.0 Basophils # 0.1 Nucleated Red Blood Cells # 0.0 Sodium Level 137 Potassium Level 4.6 Chloride Level 102 Carbon Dioxide Level 31 Anion Gap 4 L Blood Urea Nitrogen 9 Creatinine 0.57 Est Glomerular Filtrat Rate mL/min > 60 Glucose Level 96 Calcium Level 8.7 Urine Color YELLOW Urine Clarity SLIGHTLY CLOUDY A Urine pH 6.0 Urine Specific [place] 1.013 Urine Ketones NEGATIVE Urine Nitrite NEGATIVE Urine Bilirubin NEGATIVE Urine Urobilinogen 2+ H Urine Leukocyte Esterase 1+ H Urine Microscopic RBC 0 Urine Microscopic WBC 18 H Urine Bacteria FEW A Urine Mucus FEW A Urine Hemoglobin 1+ H Urine Glucose NEGATIVE Urine Total Protein NEGATIVE Consultation Date/Type/Reason Admit Date/Time Apr 25, 2018 at 14:37 Initial Consult Date SUBJECTIVE: Pt is awake, alert, resting in bed. No fevers. VS stable. T: 97.8 LABS: Reviewed. Indwelling: R chest Port-A-Cath 05/29/18 Physical examination: GEN: Obese well-developed middle-aged American-speaking woman who is alert in no distress. HENT: Head atraumatic normocephalic sclera nonicteric vehicle mucosa pink. Neck is supple PULM: chest rise symmetrical breath sounds diminished bases. Heart: S1-S2. Abdomen: soft bowel sounds present EXTREM: without cyanosis, left upper extremity with edema Assessment: 1. Status post neutropenic fevers 2. Metastatic breast cancer 3. Status post urinary tract infection 4. Obesity 5. Anasarca Plan: Remains unchanged, stable. Currently off antibiotics. continue to monitor. Requesting Provider: RUSS JEROME MD Exam/Review of Systems Vital Signs Vitals Vital Signs Date Temp Pulse Resp B/P (MAP) Pulse Ox O2 O2 Flow FiO2 Time Delivery Rate 06/23/18 97.8 99 16 100/55 81 08:02 (70) 06/22/18 Room Air 19:35 Intake and Output 06/22/18 06/22/18 06/23/18 1515:00 23:00 07:00 IntakeIntake Total 200 ml 200 ml 200 ml BalanceBalance 200 ml 200 ml 200 ml Medications Medications Current Medications Anastrozole (Arimidex) 1 mg DAILY PO Last administered on 06/23/18 08:58; Admin Dose 1 MG; Start 04/25/18 at 19:00 Zolpidem Tartrate (Ambien) 10 mg HS PRN PO INSOMNIA; Start 04/25/18 at 23:30 Magnesium Hydroxide (Milk Of Mag) 30 ml DAILY PRN PO CONSTIPATION Last administ ered on 06/22/18 14:27; Admin Dose 30 ML; Start 04/27/18 at 21:00 Acetaminophen (Tylenol Tab) 500 mg Q6H PRN PO MILD PAIN(1-3)OR ELEVATED TEMP Last administered on 06/02/18at 23:59; Admin Dose 500 MG; Start 05/30/18 at 20:30 Cholecalciferol (Vitamin D) 4,000 unit DAILY PO Last administered on 06/23/18 08:57; Admin Dose 4,000 UNIT; Start 06/02/18 at 09:00 Oxycodone HCl (Oxycontin) 20 mg BID PO Last administered on 06/23/18 08:57; Admin Dose 20 MG; Start 06/03/18 at 21:00 Morphine Sulfate (morphine) 9 mg Q4H PRN PO SEVERE PAIN LEVEL 7-10 Last administered on 06/23/18 09:02; Admin Dose 9 MG; Start 06/04/18 at 10:00 Carvedilol (Coreg) 3.125 mg BID PO Last administered on 06/21/18 20:29; Admin Dose 3.125 MG; Start 06/11/18 at 13:30 Ondansetron HCl (Zofran Inj) 4 mg Q6H PRN IV NAUSEA AND/OR VOMITING Last administered on 06/22/18 20:35; Admin Dose 4 MG; Start 06/17/18 at 07:30 Enoxaparin Sodium (Lovenox) 40 mg Q24H SC Last administered on 06/22/18 17:18; Admin Dose 40 MG; Start 06/19/18 at 18:00 Enalapril Maleate (Vasotec) 2.5 mg DAILY PO Last administered on 06/20/18 10:07; Admin Dose 2.5 MG; Start 06/19/18 at 22:30 Lorazepam (Ativan) 1 mg Q8 PRN PO ANXIETY Last administered on 06/21/18 17:52; Admin Dose 1 MG; Start 06/20/18 at 12:30 Escitalopram Oxalate (Lexapro) 10 mg DAILY PO Last administered on 06/23/18 08:57; Admin Dose 10 MG; Start 06/20/18 at 12:30 Spironolactone (Aldactone) 25 mg DAILY NGT Last administered on 06/23/18 08:58; Admin Dose 25 MG; Start 06/20/18 at 13:30 Pantoprazole (Protonix Tab) 40 mg AC BREAKFAST DINNER PO Last administered on 06/23/18 06:14; Admin Dose 40 MG; Start 06/22/18 at 07:20 Furosemide (Lasix) 20 mg DAILY PO Last administered on 06/23/18 08:59; Admin Dose 20 MG; Start 06/22/18 at 09:00 Epoetin Cr (Epogen (Oncology)) 40,000 units Sa@1700 SC Last administered on 06/22/18 17:16; Admin Dose 10,000 UNITS; Start 06/22/18 at 17:00 BERT BETTENCOURT Jun 23, 2018 13:02
[2018-06-23 14:24] VITALS: BP 101/58; PULSE 100; RESP 16
--- NOTE | 2018-06-23 14:38 | CONS ---
Date/Time of Note Date/Time of Note DATE: 06/23/18 TIME: 14:37 Assessment/Plan Assessment/Plan Assessment/Plan 1.CHF-diastolic acute on chronic. Reasonable volume status. laying flat EF 55% by echo this admit - responded to gentle diuresis - BETTER now 2.HTN-currently borderline hypotension - stable 3.Breast CA-metastatic to bones- awaiting CHEMO Rx - DR. Frenández to Rx 4.Anemia - no active bleed noted - stable now 5.Hyponatremia-improved 6.Compression fractures 7. UTI s/p course abx - no fevers now Result Diagram: 06/23/18 0422 06/23/18 0422 Results 24hrs Laboratory Tests Test 06/23/18 04:22 06/23/18 05:00 White Blood Count 3.9 #L Red Blood Count 2.68 L Hemoglobin 8.5 L Hematocrit 27.8 L Mean Corpuscular Volume 103.7 H Mean Corpuscular Hemoglobin 31.7 Mean Corpuscular Hemoglobin Concent 30.6 L Red Cell Distribution Width 19.1 H Platelet Count 235 Mean Platelet Volume 9.4 Immature Granulocytes % 0.500 H Neutrophils % 35.3 L Lymphocytes % 44.2 Monocytes % 17.0 H Eosinophils % 1.0 Basophils % 2.0 Nucleated Red Blood Cells % 0.0 Immature Granulocytes # 0.020 Neutrophils # 1.4 L Lymphocytes # 1.7 Monocytes # 0.7 Eosinophils # 0.0 Basophils # 0.1 Nucleated Red Blood Cells # 0.0 Sodium Level 137 Potassium Level 4.6 Chloride Level 102 Carbon Dioxide Level 31 Anion Gap 4 L Blood Urea Nitrogen 9 Creatinine 0.57 Est Glomerular Filtrat Rate mL/min > 60 Glucose Level 96 Calcium Level 8.7 Urine Color YELLOW Urine Clarity SLIGHTLY CLOUDY A Urine pH 6.0 Urine Specific [place] 1.013 Urine Ketones NEGATIVE Urine Nitrite NEGATIVE Urine Bilirubin NEGATIVE Urine Urobilinogen 2+ H Urine Leukocyte Esterase 1+ H Urine Microscopic RBC 0 Urine Microscopic WBC 18 H Urine Bacteria FEW A Urine Mucus FEW A Urine Hemoglobin 1+ H Urine Glucose NEGATIVE Urine Total Protein NEGATIVE Consultation Date/Type/Reason Admit Date/Time Apr 25, 2018 at 14:37 Initial Consult Date 04/26/18 Requesting Provider: RUSS JEROME MD 24 HR Interval Summary Free Text/Dictation NO acute events - Rx anemia as needed - CHF better ROS: No fever, no chills, no nausea, no vomiting, no diarrhea/constipation No recent weight changes No chest pain, no PND, no orthopnea No dizziness, blurred vision No thirst, no heat or cold intolerance Exam/Review of Systems Vital Signs Vitals Vital Signs Date Temp Pulse Resp B/P (MAP) Pulse Ox O2 O2 Flow FiO2 Time Delivery Rate 06/23/18 98.1 100 16 101/58 83 14:24 (72) 06/22/18 Room Air 19:35 Intake and Output 06/22/18 06/22/18 06/23/18 1515:00 23:00 07:00 IntakeIntake Total 200 ml 200 ml 200 ml BalanceBalance 200 ml 200 ml 200 ml Exam General: WN/WD/NAD, AOx 3 HEENT: Unicetric/atraumatic/EOMI (follow commands) NECK: JVD elevated, no thyromegaly Lymph: no lymphadenopathy HEART: regular with no S3, II/ systolic murmur at apex LUNGS: Coarse sounds ABD: soft, NT, ND, +BS : Intact Neuro: non focal SKIN: chronic changes EXT: trace edema Medications Medications Current Medications Anastrozole (Arimidex) 1 mg DAILY PO Last administered on 06/23/18 08:58; Admin Dose 1 MG; Start 04/25/18 at 19:00 Zolpidem Tartrate (Ambien) 10 mg HS PRN PO INSOMNIA; Start 04/25/18 at 23:30 Magnesium Hydroxide (Milk Of Mag) 30 ml DAILY PRN PO CONSTIPATION Last administered on 06/22/18at 14:27; Admin Dose 30 ML; Start 04/27/18 at 21:00 Acetaminophen (Tylenol Tab) 500 mg Q6H PRN PO MILD PAIN(1-3)OR ELEVATED TEMP Last administered on 06/02/18at 23:59; Admin Dose 500 MG; Start 05/30/18 at 20 :30 Cholecalciferol (Vitamin D) 4,000 unit DAILY PO Last administered on 06/23/18 08:57; Admin Dose 4,000 UNIT; Start 06/02/18 at 09:00 Oxycodone HCl (Oxycontin) 20 mg BID PO Last administered on 06/23/18 08:57; Admin Dose 20 MG; Start 06/03/18 at 21:00 Morphine Sulfate (morphine) 9 mg Q4H PRN PO SEVERE PAIN LEVEL 7-10 Last administered on 06/23/18 09:02; Admin Dose 9 MG; Start 06/04/18 at 10:00 Carvedilol (Coreg) 3.125 mg BID PO Last administered on 06/21/18 20:29; Admin Dose 3.125 MG; Start 06/11/18 at 13:30 Ondansetron HCl (Zofran Inj) 4 mg Q6H PRN IV NAUSEA AND/OR VOMITING Last ad ministered on 06/22/18 20:35; Admin Dose 4 MG; Start 06/17/18 at 07:30 Enoxaparin Sodium (Lovenox) 40 mg Q24H SC Last administered on 06/22/18 17:18; Admin Dose 40 MG; Start 06/19/18 at 18:00 Enalapril Maleate (Vasotec) 2.5 mg DAILY PO Last administered on 06/20/18 10:07; Admin Dose 2.5 MG; Start 06/19/18 at 22:30 Lorazepam (Ativan) 1 mg Q8 PRN PO ANXIETY Last administered on 06/21/18 17:52; Admin Dose 1 MG; Start 06/20/18 at 12:30 Escitalopram Oxalate (Lexapro) 10 mg DAILY PO Last administered on 06/23/18 08:57; Admin Dose 10 MG; Start 06/20/18 at 12:30 Spironolactone (Aldactone) 25 mg DAILY NGT Last administered on 06/23/18 08:58; Admin Dose 25 MG; Start 06/20/18 at 13:30 Pantoprazole (Protonix Tab) 40 mg AC BREAKFAST DINNER PO Last administered on 06/23/18 06:14; Admin Dose 40 MG; Start 06/22/18 at 07:20 Furosemide (Lasix) 20 mg DAILY PO Last administered on 06/23/18 08:59; Admin D ose 20 MG; Start 06/22/18 at 09:00 Epoetin Cr (Epogen (Oncology)) 40,000 units Sa@1700 SC Last administered on 06/22/18 17:16; Admin Dose 10,000 UNITS; Start 06/22/18 at 17:00 EMILY NELSON MD Jun 23, 2018 14:38
--- NOTE | 2018-06-23 17:12 | PN ---
Date/Time of Note Date/Time of Note DATE: 06/23/18 TIME: 17:08 Assessment/Plan VTE Prophylaxis Risk score (from Ns)>0 risk: 6 SCD applied (from Ns): Yes Pharmacological prophylaxis: LMWH Lines/Catheters IV Catheter Type (from [facility]): PORT-A-CATH Urinary Cath still in place: No Reason Cath still needed: urinary retention Assessment/Plan Assessment/Plan 1. Cancer of the left breast. Exact type at this time unknown.MULTIPLE BONY METS, PULMONARY METS 2. Severe pain in the interscapular and lumbar sacral area most probably metastatic lesion possible femoral fracture. pathologic fracture of T9 with 60% of loss of height. Neurosurgical f/u. 3. Obesity. 4. Weight loss 60 pounds during the last 2 years by diet 5. PMS. 6. Myopia. 7. Anemia chronic disease with a drop of her hematocrit to 27 and regaining to 30 without any measures. Latest results 28. Protonix was added. Today hematocrit is 26. Will recheck tomorrow 8. Anxiety disorder. Claustrophobia. Increase Ativan to 1 mg every 8 as needed at Lexapro 10 mg daily. 9. Posttraumatic stress disorder. 10. Pain in the left forearm with a history of fracture of ulna and radius. 11. Tachycardia 12. Hypoxemia at night marginal improved after 2 L of nasal cannula oxygen. 13. Deconditioning 14. 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 15. Pain syndrome. Today the most painful zone is in the right hip area. X- ray did not show any fractures. 16. Hyponatremia- resolved 17. Leucopenia-improved. 18. Neutropenia with occasional fever and chills. Hold discharge, until she is stable. 19. Hypoalbuminemia 2.4 now 2.7 20.Right sided cp after catheter insertion and correction less discomfort. 21. Decreased edema both lower extremities with hypotension-improving On abdominal us:. Limited study as described above. 2. Diffusely heterogeneous liver consistent with multiple masses. 3. Gallstones and sludge in the gallbladder. No evidence of cholecystitis. 4. Proximal abdominal aorta not visualized. 5. Spleen not visualized. 6. Otherwise unremarkable abdomen and retroperitoneum ultrasound. On CZR:1. No significant interval change. 2. Cardiomegaly. 3. Bibasilar opacities may represent atelectasis or infiltrate. 4. Stable left pleural effusion. Result Diagram: 06/23/18 0422 06/23/18 0422 Results 24hrs Laboratory Tests Test 06/23/18 04:22 06/23/18 05:00 White Blood Count 3.9 #L Red Blood Count 2.68 L Hemoglobin 8.5 L Hematocrit 27.8 L Mean Corpuscular Volume 103.7 H Mean Corpuscular Hemoglobin 31.7 Mean Corpuscular Hemoglobin Concent 30.6 L Red Cell Distribution Width 19.1 H Platelet Count 235 Mean Platelet Volume 9.4 Immature Granulocytes % 0.500 H Neutrophils % 35.3 L Lymphocytes % 44.2 Monocytes % 17.0 H Eosinophils % 1.0 Basophils % 2.0 Nucleated Red Blood Cells % 0.0 Immature Granulocytes # 0.020 Neutrophils # 1.4 L Lymphocytes # 1.7 Monocytes # 0.7 Eosinophils # 0.0 Basophils # 0.1 Nucleated Red Blood Cells # 0.0 Sodium Level 137 Potassium Level 4.6 Chloride Level 102 Carbon Dioxide Level 31 Anion Gap 4 L Blood Urea Nitrogen 9 Creatinine 0.57 Est Glomerular Filtrat Rate mL/min > 60 Glucose Level 96 Calcium Level 8.7 Urine Color YELLOW Urine Clarity SLIGHTLY CLOUDY A Urine pH 6.0 Urine Specific [place] 1.013 Urine Ketones NEGATIVE Urine Nitrite NEGATIVE Urine Bilirubin NEGATIVE Urine Urobilinogen 2+ H Urine Leukocyte Esterase 1+ H Urine Microscopic RBC 0 Urine Microscopic WBC 18 H Urine Bacteria FEW A Urine Mucus FEW A Urine Hemoglobin 1+ H Urine Glucose NEGATIVE Urine Total Protein NEGATIVE Subjective 24 Hr Interval Summary Free Text/Dictation Feel better today. Decreased right-sided leg edema too. I am tired and I am getting up my back pain and right hip pain are getting worse. I have difficulty to control my balance but I am making a effort. Constitutional: improved, poor po, requiring O2; No no complaints, No chills, No diaphoresis, No disoriented, No febrile, No requiring IVF, No other Eyes: No no complaints, No pain, No discharge, No redness, No visual change, No other ENT: No no complaints, No bleeding, No pain, No congestion, No discharge, No dysphagia, No sore throat, No other Respiratory: cough, pleuritic pain, shortness of breath; No no complaints, No pain, No sputum, No wheezing, No other Cardiovascular: chest pain, edema, lightheadedness, orthopenea, palpitations; No no complaints, No paroxysmal nocturnal dyspnea, No other Gastrointestinal: constipation, flatus, passing stool; No no complaints, No pain, No blood, No decreased appetite, No diarrhea, No nausea, No vomiting, No other Genitourinary: dysuria, flank pain; No no complaints, No bleeding, No discharge, No hematuria, No other Musculoskeletal: back pain, bone/joint pain; No no complaints, No neck pain, No restricted range of motion, No swelling, No other Skin: pruritis; No no complaints, No bruising, No erythema, No laceration, No rash, No skin lesions, No other Neurologic: dizziness, headache; No no complaints, No confusion, No focal-weakness, No syncope, No seizure, No other Lymphatic: No no complaints, No adenopathy, No tender nodes, No lymphadema, No other Psychological: anxiety; No no complaints, No nl mood/affect, No confusion, No depression, No suicidal, No other Immunologic: No no complaints, No immunodeficiency, No pruritis, No rhinitis, No urticaria, No other Exam/Review of Systems Vital Signs Vitals Vital Signs Date Temp Pulse Resp B/P (MAP) Pulse Ox O2 O2 Flow FiO2 Time Delivery Rate 06/23/18 98.1 100 16 101/58 83 14:24 (72) 06/22/18 Room Air 19:35 Intake and Output 06/22/18 06/22/18 06/23/18 1515:00 23:00 07:00 IntakeIntake Total 200 ml 200 ml 200 ml BalanceBalance 200 ml 200 ml 200 ml Exam Constitutional: alert, oriented, well developed, frail; No non-verbal, No distress, No obese, No other Psych: anxiety, confusion; No no complaints, No nl mood/affect, No depression, No suicidal, No other Head: normocephalic, atraumatic Eyes: EOMI; No nl conjunctiva, No nl lids, No nl sclera, No PERRL, No icteric, No fundi, disc, No other ENMT: No nl external ears & nose, No nl lips & teeth, No nl nasal mucosa & septum, No mucosa pink and moist, No intubated, No tympanic membranes, No other Neck: non-tender, jvd; No supple, No bruits, No masses, No thyromegaly, No nuchal rigidity, No other Respiratory: clear to auscultation, normal air movement, congested cough, diminished breath sounds; No intercostal retraction, No labored breathing, No respirations, No tactile fremitus, No wheezing, No other Cardiovascular: regular rate and rhythm, nl pulses, edema, jugular venous distention (JVD); No bruits, No diastolic murmur, No gallop, No irregular rhythm, No murmurs/extra sounds, No rub, No systolic murmur, No S3, No S4, No other Gastrointestinal: soft, nl liver, spleen, bowel sounds; No non-tender, No ascites, No distended, No firm, No hepatomegaly, No mass, No rebound or guarding, No splenomegaly, No surgical scars, No tender, No other Genitourinary - Female: nl adnexae, nl external genitalia; No CMT, No CVA tenderness, No uterus, No other Musculoskeletal: joint tenderness, muscle tone, muscle weakness; No nl extremities to inspection, No nl gait and stance, No range of motion, No spine non-tender, No swelling, No other Extremities: No normal pulses, No calf tenderness, No cyanosis, No clubbing, No edema, No pitting pedal edema, No palpable cord, No tenderness, No other 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: [employer] 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, nl mental status Skin: nl turgor; No rash or lesions, No diaphoresis, No ecchymosis, No laceration, No puncture, No other Medications Medications Current Medications Anastrozole (Arimidex) 1 mg DAILY PO Last administered on 06/23/18at 08:58; Admin Dose 1 MG; Start 04/25/18 at 19:00 Zolpidem Tartrate (Ambien) 10 mg HS PRN PO INSOMNIA; Start 04/25/18 at 23:30 Magnesium Hydroxide (Milk Of Mag) 30 ml DAILY PRN PO CONSTIPATION Last administered on 06/22/18at 14:27; Admin Dose 30 ML; Start 04/27/18 at 21:00 Acetaminophen (Tylenol Tab) 500 mg Q6H PRN PO MILD PAIN(1-3)OR ELEVATED TEMP Last administered on 06/02/18at 23:59; Admin Dose 500 MG; Start 05/30/18 at 20:30 Cholecalciferol (Vitamin D) 4,000 unit DAILY PO Last administered on 06/23/18 08:57; Admin Dose 4,000 UNIT; Start 06/02/18 at 09:00 Oxycodone HCl (Oxycontin) 20 mg BID PO Last administered on 06/23/18 08:57; Admin Dose 20 MG; Start 06/03/18 at 21:00 Morphine Sulfate (morphine) 9 mg Q4H PRN PO SEVERE PAIN LEVEL 7-10 Last administered on 06/23/18 15:23; Admin Dose 9 MG; Start 06/04/18 at 10:00 Carvedilol (Coreg) 3.125 mg BID PO Last administered on 06/21/18 20:29; Admin Dose 3.125 MG; Start 06/11/18 at 13:30 Ondansetron HCl (Zofran Inj) 4 mg Q6H PRN IV NAUSEA AND/OR VOMITING Last administered on 06/22/18 20:35; Admin Dose 4 MG; Start 06/17/18 at 07:30 Enoxaparin Sodium (Lovenox) 40 mg Q24H SC Last administered on 06/22/18 17:18; Admin Dose 40 MG; Start 06/19/18 at 18:00 Enalapril Maleate (Vasotec) 2.5 mg DAILY PO Last administered on 06/20/18 10:07; Admin Dose 2.5 MG; Start 06/19/18 at 22:30 Lorazepam (Ativan) 1 mg Q8 PRN PO ANXIETY Last administered on 06/21/18 17:52; Admin Dose 1 MG; Start 06/20/18 at 12:30 Escitalopram Oxalate (Lexapro) 10 mg DAILY PO Last administered on 06/23/18 08:57; Admin Dose 10 MG; Start 06/20/18 at 12:30 Spironolactone (Aldactone) 25 mg DAILY NGT Last administered on 06/23/18 08:58; Admin Dose 25 MG; Start 06/20/18 at 13:30 Pantoprazole (Protonix Tab) 40 mg AC BREAKFAST DINNER PO Last administered on 06/23/18 06:14; Admin Dose 40 MG; Start 06/22/18 at 07:20 Furosemide (Lasix) 20 mg DAILY PO Last administered on 06/23/18 08:59; Admin Dose 20 MG; Start 06/22/18 at 09:00 Epoetin Cr (Epogen (Oncology)) 40,000 units Sa@1700 SC Last administered on 06/22/18at 17:16; Admin Dose 10,000 UNITS; Start 06/22/18 at 17:00 RUSS JEROME MD Jun 23, 2018 17:12
[2018-06-23] MEDS: ENOXAPARIN 40 MG/0.4 ML SYG SC SCH (18:54)
[2018-06-23 19:56] VITALS: BP 100/69; PULSE 94; RESP 18
[2018-06-24 01:52] VITALS: BP 92/54; PULSE 90; RESP 16
[2018-06-24] MEDS: PANTOPRAZOLE (EC) 40 MG TAB PO SCH ×2 (06:07→18:30)
[2018-06-24] MEDS: morphine LIQ (10 MG/5 ML) CUP PO PRN ×3 (06:19→22:30)
[2018-06-24 07:20] VITALS: BP 105/53; PULSE 83; RESP 18
--- NOTE | 2018-06-24 07:34 | PN ---
Date/Time of Note Date/Time of Note DATE: 06/24/18 TIME: 07:26 Assessment/Plan VTE Prophylaxis Risk score (from Ns)>0 risk: 4 SCD applied (from Ns): Yes Pharmacological prophylaxis: LMWH Lines/Catheters IV C[facility] Type (from [facility] Port-a-cath Urinary Cath still in place: No Assessment/Plan Hospital Course 58 yo female with h/o metastatic breast cancer with downtrending HH 1. Anemia likely due to chronic disease/chemo -stable -neg FOB, no evidence of GI bleeding 2. Cancer of left breast, with multiple bony and pulmonary mets 3. Gallstones and sludge in gallbladder without cholecystitis 4. Heterogeneous liver which may indicate multiple masses, Color Doppler and pulsed Doppler sonography demonstrate normal antegrade flow in the portal vein. -alk 165 5. Severe pain in the interscapular and lumbar sacral area most probably metastatic lesion possible femoral fracture. Pathologic fracture of T9 with 60% of loss of height. Neurosurgical f/u. US of upper abd: 05/20 1. Limited study as described above. 2. Diffusely heterogeneous liver consistent with multiple masses. 3. Gallstones and sludge in the gallbladder. No evidence of cholecystitis. 4. Proximal abdominal aorta not visualized. 5. Spleen not visualized. 6. Otherwise unremarkable abdomen and retroperitoneum ultrasound. Plan: Miralax 17 gm QD Dulcolax PO x 1 Occult blood stool Monitor HH and for acute GI bleeding PPI BID Pt examined and plan of care discussed with Dr. Douglass Result Diagram: 06/23/18 0422 06/23/18 0422 Subjective 24 Hr Interval Summary Free Text/Dictation No evidence of GI bleeding per RN. NO bm since 06/22. Hg 8.5 stable. Exam/Review of Systems Vital Signs Vitals Vital Signs Date Temp Pulse Resp B/P (MAP) Pulse Ox O2 O2 Flow FiO2 Time Delivery Rate 06/24/18 98.1 83 18 105/53 100 Room Air 07:20 (70) 06/23/18 2.0 19:56 Intake and Output 06/23/18 06/23/18 06/24/18 1515:00 23:00 07:00 IntakeIntake Total 360 ml BalanceBalance 360 ml Exam Constitutional: alert Psych: no complaints Head: normocephalic Eyes: PERRL Respiratory: clear to auscultation Cardiovascular: regular rate and rhythm Gastrointestinal: soft, non-tender Musculoskeletal: nl gait and stance 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: nl mental status Medications Medications Current Medications Anastrozole (Arimidex) 1 mg DAILY PO Last administered on 06/23/18 08:58; Admin Dose 1 MG; Start 04/25/18 at 19:00 Zolpidem Tartrate (Ambien) 10 mg HS PRN PO INSOMNIA; Start 04/25/18 at 23:30 Magnesium Hydroxide (Milk Of Mag) 30 ml DAILY PRN PO CONSTIPATION Last administered on 06/22/18 14:27; Admin Dose 30 ML; Start 04/27/18 at 21:00 Acetaminophen (Tylenol Tab) 500 mg Q6H PRN PO MILD PAIN(1-3)OR ELEVATED TEMP L ast administered on 06/02/18 23:59; Admin Dose 500 MG; Start 05/30/18 at 20:30 Cholecalciferol (Vitamin D) 4,000 unit DAILY PO Last administered on 06/23/18 08:57; Admin Dose 4,000 UNIT; Start 06/02/18 at 09:00 Oxycodone HCl (Oxycontin) 20 mg BID PO Last administered on 06/23/18 21:09; Admin Dose 20 MG; Start 06/03/18 at 21:00 Morphine Sulfate (morphine) 9 mg Q4H PRN PO SEVERE PAIN LEVEL 7-10 Last administered on 06/24/18 06:19; Admin Dose 6 MG; Start 06/04/18 at 10:00 Carvedilol (Coreg) 3.125 mg BID PO Last administered on 06/21/18 20:29; Admin Dose 3.125 MG; Start 06/11/18 at 13:30 Ondansetron HCl (Zofran Inj) 4 mg Q6H PRN IV NAUSEA AND/OR VOMITING Last administered on 06/22/18 20:35; Admin Dose 4 MG; Start 06/17/18 at 07:30 Enoxaparin Sodium (Lovenox) 40 mg Q24H SC Last administered on 06/23/18 18:54; Admin Dose 40 MG; Start 06/19/18 at 18:00 Enalapril Maleate (Vasotec) 2.5 mg DAILY PO Last administered on 06/20/18 10:07; Admin Dose 2.5 MG; Start 06/19/18 at 22:30 Lorazepam (Ativan) 1 mg Q8 PRN PO ANXIETY Last administered on 06/21/18 17:52; Admin Dose 1 MG; Start 06/20/18 at 12:30 Escitalopram Oxalate (Lexapro) 10 mg DAILY PO Last administered on 06/23/18 08:57; Admin Dose 10 MG; Start 06/20/18 at 12:30 Spironolactone (Aldactone) 25 mg DAILY NGT Last administered on 06/23/18 08:58; Admin Dose 25 MG; Start 06/20/18 at 13:30 Pantoprazole (Protonix Tab) 40 mg AC BREAKFAST DINNER PO Last administered on 06/24/18 06:07; Admin Dose 40 MG; Start 06/22/18 at 07:20 Furosemide (Lasix) 20 mg DAILY PO Last administered on 06/23/18 08:59; Admin Dose 20 MG; Start 06/22/18 at 09:00 Epoetin Cr (Epogen (Oncology)) 40,000 units Sa@1700 SC Last administered on 06/22/18 17:16; Admin Dose 10,000 UNITS; Start 06/22/18 at 17:00 CATHERINE MARQUEZ Jun 24, 2018 07:34
[2018-06-24] MEDS ORDERED: BISACODYL (EC) 5 MG TAB PO SCH (08:00)
[2018-06-24] MEDS: ENALAPRIL 2.5 MG TAB PO SCH (09:00)
[2018-06-24] MEDS: SPIRONOLACTONE 25 MG TAB NGT SCH (09:09)
[2018-06-24] MEDS: POLYETHYLENE GLYCOL 17 GM PACKET PO SCH (09:09)
[2018-06-24] MEDS: ESCITALOPRAM 10 MG TAB PO SCH (09:09)
[2018-06-24] MEDS: CHOLECALCIFEROL 2,000 UNIT CAP PO SCH (09:10)
[2018-06-24] MEDS: FUROSEMIDE 20 MG TAB PO SCH (09:10)
[2018-06-24] MEDS: oxyCODONE (CR) 20 MG TAB [oxyCONTIN] PO SCH ×2 (09:10→20:54)
[2018-06-24] MEDS: ANASTROZOLE 1 MG TAB PO SCH (09:11)
--- NOTE | 2018-06-24 09:13 | PN ---
Date/Time of Note Date/Time of Note DATE: 06/24/18 TIME: 09:13 Assessment/Plan VTE Prophylaxis Risk score (from Nsg)>0 risk: 6 SCD applied (from Nsg): Yes SCD contraindicated: low risk/ambulating Pharmacological prophylaxis: LMWH Lines/Catheters IV Catheter Type (from Nrs): port-a-cath Central line still needed: No Urinary Cath still in place: No Reason Cath still needed: urinary retention Assessment/Plan Assessment/Plan 1. Cancer of the left breast. Exact type at this time unknown.MULTIPLE BONY METS, PULMONARY METS 2. Severe pain in the interscapular and lumbar sacral area most probably metastatic lesion possible femoral fracture. pathologic fracture of T9 with 60% of loss of height. Neurosurgical f/u. 3. Obesity. 4. Weight loss 60 pounds during the last 2 years by diet 5. PMS. 6. Myopia. 7. Anemia chronic disease with a drop of her hematocrit to 27 and regaining to 30 without any measures. Latest results 28. Protonix was added. Today hematocrit is 26. Will recheck tomorrow 8. Anxiety disorder. Claustrophobia. Increase Ativan to 1 mg every 8 as needed at Lexapro 10 mg daily. 9. Posttraumatic stress disorder. 10. Pain in the left forearm with a history of fracture of ulna and radius. 11. Tachycardia 12. Hypoxemia at night marginal improved after 2 L of nasal cannula oxygen. 13. Deconditioning 14. 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 15. Pain syndrome. Today the most painful zone is in the right hip area. X- ray did not show any fractures. 16. Hyponatremia- resolved 17. Leucopenia-improved. 18. Neutropenia with occasional fever and chills. Hold discharge, until she is stable. 19. Hypoalbuminemia 2.4 now 2.7 20.Right sided cp after catheter insertion and correction less discomfort. 21. Decreased edema both lower extremities with hypotension-improving On abdominal us:. Limited study as described above. 2. Diffusely heterogeneous liver consistent with multiple masses. 3. Gallstones and sludge in the gallbladder. No evidence of cholecystitis. 4. Proximal abdominal aorta not visualized. 5. Spleen not visualized. 6. Otherwise unremarkable abdomen and retroperitoneum ultrasound. On CZR:1. No significant interval change. 2. Cardiomegaly. 3. Bibasilar opacities may represent atelectasis or infiltrate. 4. Stable left pleural effusion. Result Diagram: 06/23/1842106/23/18421 Subjective 24 Hr Interval Summary Free Text/Dictation Pain in the right hip. Difficulty to stand up without support. Sleeplessness due to worsening of her pain mainly in interscapular areas back in the right hip. Exam/Review of Systems Vital Signs Vitals Vital Signs Date Temp Pulse Resp B/P (MAP) Pulse Ox O2 O2 Flow FiO2 Time Delivery Rate 06/24/18 98.1 83 18 105/53 100 Room Air 07:20 (70) 06/23/18 2.0 19:56 Intake and Output 06/23/18 06/23/18 06/24/18 1515:00 23:00 07:00 IntakeIntake Total 360 ml BalanceBalance 360 ml Medications Medications Current Medications Anastrozole (Arimidex) 1 mg DAILY PO Last administered on 06/24/18 09:11; Admin Dose 1 MG; Start 04/25/18 at 19:00 Zolpidem Tartrate (Ambien) 10 mg HS PRN PO INSOMNIA; Start 04/25/18 at 23:30 Magnesium Hydroxide (Milk Of Mag) 30 ml DAILY PRN PO CONSTIPATION Last administered on 06/22/18 14:27; Admin Dose 30 ML; Start 04/27/18 at 21:00 Acetaminophen (Tylenol Tab) 500 mg Q6H PRN PO MILD PAIN(1-3)OR ELEVATED TEMP Last administered on 06/02/18at 23:59; Admin Dose 500 MG; Start 05/30/18 at 20:30 Cholecalciferol (Vitamin D) 4,000 unit DAILY PO Last administered on 06/24/18 09:10; Admin Dose 4,000 UNIT; Start 06/02/18 at 09:00 Oxycodone HCl (Oxycontin) 20 mg BID PO Last administered on 06/24/18 09:10; Admin Dose 20 MG; Start 06/03/18 at 21:00 Morphine Sulfate (morphine) 9 mg Q4H PRN PO SEVERE PAIN LEVEL 7-10 Last administered on 06/24/18 06:19; Admin Dose 6 MG; Start 06/04/18 at 10:00 Carvedilol (Coreg) 3.125 mg BID PO Last administered on 06/21/18 20:29; Admin Dose 3.125 MG; Start 06/11/18 at 13:30 Ondansetron HCl (Zofran Inj) 4 mg Q6H PRN IV NAUSEA AND/OR VOMITING Last administered on 06/22/18 20:35; Admin Dose 4 MG; Start 06/17/18 at 07:30 Enoxaparin Sodium (Lovenox) 40 mg Q24H SC Last administered on 06/23/18 18:54; Admin Dose 40 MG; Start 06/19/18 at 18:00 Enalapril Maleate (Vasotec) 2.5 mg DAILY PO Last administered on 06/20/18 10:07; Admin Dose 2.5 MG; Start 06/19/18 at 22:30 Lorazepam (Ativan) 1 mg Q8 PRN PO ANXIETY Last administered on 06/21/18 17:52; Admin Dose 1 MG; Start 06/20/18 at 12:30 Escitalopram Oxalate (Lexapro) 10 mg DAILY PO Last administered on 06/24/18 09:09; Admin Dose 10 MG; Start 06/20/18 at 12:30 Spironolactone (Aldactone) 25 mg DAILY NGT Last administered on 06/24/18 09:09; Admin Dose 25 MG; Start 06/20/18 at 13:30 Pantoprazole (Protonix Tab) 40 mg AC BREAKFAST DINNER PO Last administered on 06/24/18 06:07; Admin Dose 40 MG; Start 06/22/18 at 07:20 Furosemide (Lasix) 20 mg DAILY PO Last administered on 06/24/18 09:10; Admin Dose 20 MG; Start 06/22/18 at 09:00 Epoetin Cr (Epogen (Oncology)) 40,000 units Sa@1700 SC Last administered on 06/22/18 17:16; Admin Dose 10,000 UNITS; Start 06/22/18 at 17:00 Polyethylene Glycol (Miralax) 17 gm DAILY PO Last administered on 06/24/18 09:09; Admin Dose 17 GM; Start 06/24/18 at 08:30 Bisacodyl (Dulcolax) 10 mg ONCE PO Last administered on 06/24/18 09:09; Admin Dose 10 MG; Start 06/24/18 at 08:00; Stop 06/24/18 at 10:00 RUSS JEROME MD Jun 24, 2018 09:13
[2018-06-24] MEDS: ONDANSETRON 4 MG INJ IV PRN (09:16)
--- NOTE | 2018-06-24 12:15 | CONS ---
Date/Time of Note Date/Time of Note DATE: 06/24/18 TIME: 12:13 Assessment/Plan Assessment/Plan Hospital Course IMP: 1.CHF-diastolic acute on chronic. Reasonable volume status. laying flat EF 55% by echo this admit 2.HTN-currently borderline hypotension 3.Breast CA-metastatic to bones 4.anemia 5.Hyponatremia-improved 6.Compression fractures 7. UTI s/p course abx 8. Back pain REcc: -Continue coreg and consider d/c of zestril given marginal BP and holding of ACEI -Continue aldactone/lasix but will change to po and follow volume status closely -s/p abx course, f/u cx data -ongoing oncology eval Result Diagram: 06/23/18 0422 06/23/18 0422 Results 24hrs Laboratory Tests Test 06/24/18 09:40 Stool Occult Blood NEGATIVE Consultation Date/Type/Reason Admit Date/Time Apr 25, 2018 at 14:37 Initial Consult Date 04/26/18 Type of Consult cardiology Reason for Consultation CHF Requesting Provider: RUSS JEROME MD Exam/Review of Systems Vital Signs Vitals Vital Signs Date Temp Pulse Resp B/P (MAP) Pulse Ox O2 O2 Flow FiO2 Time Delivery Rate 06/24/18 98.1 83 18 105/53 100 Room Air 07:20 (70) 06/23/18 2.0 19:56 Intake and Output 06/23/18 06/23/18 06/24/18 1515:00 23:00 07:00 IntakeIntake Total 360 ml BalanceBalance 360 ml Exam Review of Systems: CONSTITUTIONAL: No fevers, chills. PULMONARY: No sob CARDIOVASCULAR: No chest pain/palpitations GASTROINTESTINAL: No nausea/vomiting. GENITOURINARY: No hematuria/dysuria. MUSCULOSKELETAL: No myagias/arthalgias. PSYCHIATRIC: The patient denies depression. NEUROLOGIC: No weakness Constitutional: alert Psych: no complaints Head: normocephalic ENMT: mucosa pink and moist Neck: supple, jvd (9 cm water) Respiratory: diminished breath sounds (at bases/B) Cardiovascular: regular rate and rhythm Gastrointestinal: soft, non-tender Musculoskeletal: muscle weakness (mild generalized) Extremities: edema (none) 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: other (No focal deficits) Medications Medications Current Medications Anastrozole (Arimidex) 1 mg DAILY PO Last administered on 06/24/18 09:11; Admin Dose 1 MG; Start 04/25/18 at 19:00 Zolpidem Tartrate (Ambien) 10 mg HS PRN PO INSOMNIA; Start 04/25/18 at 23:30 Magnesium Hydroxide (Milk Of Mag) 30 ml DAILY PRN PO CONSTIPATION Last adminis tered on 06/22/18 14:27; Admin Dose 30 ML; Start 04/27/18 at 21:00 Acetaminophen (Tylenol Tab) 500 mg Q6H PRN PO MILD PAIN(1-3)OR ELEVATED TEMP Last administered on 06/02/18 23:59; Admin Dose 500 MG; Start 05/30/18 at 20:30 Cholecalciferol (Vitamin D) 4,000 unit DAILY PO Last administered on 06/24/18 09:10; Admin Dose 4,000 UNIT; Start 06/02/18 at 09:00 Oxycodone HCl (Oxycontin) 20 mg BID PO Last administered on 06/24/18 09:10; Admin Dose 20 MG; Start 06/03/18 at 21:00 Morphine Sulfate (morphine) 9 mg Q4H PRN PO SEVERE PAIN LEVEL 7-10 Last administered on 06/24/18 06:19; Admin Dose 6 MG; Start 06/04/18 at 10:00 Carvedilol (Coreg) 3.125 mg BID PO Last administered on 06/21/18 20:29; Admin Dose 3.125 MG; Start 06/11/18 at 13:30 Ondansetron HCl (Zofran Inj) 4 mg Q6H PRN IV NAUSEA AND/OR VOMITING Last administered on 06/24/18 09:16; Admin Dose 4 MG; Start 06/17/18 at 07:30 Enoxaparin Sodium (Lovenox) 40 mg Q24H SC Last administered on 06/23/18 18:54; Admin Dose 40 MG; Start 06/19/18 at 18:00 Enalapril Maleate (Vasotec) 2.5 mg DAILY PO Last administered on 06/20/18 10:07; Admin Dose 2.5 MG; Start 06/19/18 at 22:30 Lorazepam (Ativan) 1 mg Q8 PRN PO ANXIETY Last administered on 06/21/18 17:52; Admin Dose 1 MG; Start 06/20/18 at 12:30 Escitalopram Oxalate (Lexapro) 10 mg DAILY PO Last administered on 06/24/18 09:09; Admin Dose 10 MG; Start 06/20/18 at 12:30 Spironolactone (Aldactone) 25 mg DAILY NGT Last administered on 06/24/18 09:09; Admin Dose 25 MG; Start 06/20/18 at 13:30 Pantoprazole (Protonix Tab) 40 mg AC BREAKFAST DINNER PO Last administered on 06/24/18 06:07; Admin Dose 40 MG; Start 06/22/18 at 07:20 Furosemide (Lasix) 20 mg DAILY PO Last administered on 06/24/18 09:10; Admin Dose 20 MG; Start 06/22/18 at 09:00 Epoetin Cr (Epogen (Oncology)) 40,000 units Sa@1700 SC Last administered on 06/22/18 17:16; Admin Dose 10,000 UNITS; Start 06/22/18 at 17:00 Polyethylene Glycol (Miralax) 17 gm DAILY PO Last administered on 06/24/18 09:09; Admin Dose 17 GM; Start 06/24/18 at 08:30 KAMILA TERESA Jun 24, 2018 12:15
[2018-06-24 14:15] VITALS: BP 106/60; PULSE 94; RESP 18
--- NOTE | 2018-06-24 15:47 | CONS ---
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 Expansion of the posterior T9 vertebral body resulting in central canal stenosis with AP diameter measuring 8 mm. DC ORAL DECADRON CONT AI PAIN CONTROL MRI C - SPINE AND R HIP NOTED BONE SCAN -Multiple skeletal metastases in the axial and appendicular skeleton COMPLETED XRT PLAN CHEMO- TAXOTERE POST PORTACATH PLACEMENT L BREAST- LARGE L BREAST MASS, DECREASED IN SIZE RUE LYMPHEDEMA DOPPLER NEG CT CHEST- NOTED R FEMORAL LESION Because of the extensive and widespread metastatic lesion involving both vestibular part and proximal femoral part of the right hip and even if any surgical procedure is considered, she will need a special custom made acetabular part and proximal femoral part, which can be done in a [facility], probably by oncologic orthopedic surgeon. Even if surgery is considered and she needs to be transferred to a [facility] for the higher level of care including evaluation and care by oncology orthopedic surgeon, it is possible that because of the extensiveness of the metastatic lesions further surgical treatment may not be the recommended. PAIN CONT OXYCONTIN FLUID OVERLOAD CARD EVAL POOR IV ACCESS - post PORTACATH Obesity. Weight loss 60 pounds during the last 2 years by diet PMS. Myopia. Anemia chronic disease. Anxiety disorder. Posttraumatic stress disorder. Pain in the left forearm with a history of fracture of ulna and radius. 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 Result Diagram: 06/23/1842106/23/182 Results 24hrs Laboratory Tests Test 06/24/18 09:40 Stool Occult Blood NEGATIVE Consultation Date/Type/Reason Admit Date/Time Apr 25, 2018 at 14:37 Initial Consult Date 04/25/18 Type of Consult [facility] Requesting Provider: RUSS JEROME MD 24 HR Interval Summary Free Text/Dictation ALL NOTED D/W PT AND DR JEROME Exam/Review of Systems Vital Signs Vitals Vital Signs Date Temp Pulse Resp B/P (MAP) Pulse Ox O2 O2 Flow FiO2 Time Delivery Rate 06/24/18 98.2 94 18 106/60 91 Room Air 14:15 (75) 06/23/18 2.0 19:56 Intake and Output 06/23/18 06/23/18 06/24/18 1515:00 23:00 07:00 IntakeIntake Total 360 ml BalanceBalance 360 ml Exam Constitutional: alert, oriented, well developed, distress, frail; No non-verbal, No other Psych: anxiety, depression; No no complaints, No nl mood/affect, No confusion, No suicidal, No other Head: normocephalic, atraumatic; No lacerations, No hematomas, No other Eyes: EOMI, nl lids, PERRL; No nl conjunctiva, No nl sclera, No icteric, No fundi, disc, No other ENMT: tympanic membranes; No nl external ears & nose, No nl lips & teeth, No nl nasal mucosa & septum, No mucosa pink and moist, No intubated, No other Neck: supple, non-tender, jvd, bruits; No masses, No thyromegaly, No nuchal rigidity, No other Respiratory: clear to auscultation, normal air movement, crackles/rales, diminished breath sounds, respirations; No congested cough, No intercostal retraction, No labored breathing, No tactile fremitus, No wheezing, No other Cardiovascular: regular rate and rhythm, bruits, jugular venous distention (JVD), systolic murmur; No nl pulses, No diastolic murmur, No edema, No gallop, No irregular rhythm, No murmurs/extra sounds, No rub, No S3, No S4, No other Gastrointestinal: soft, non-tender, bowel sounds, distended, hepatomegaly, other (Obesity with thick fatty layer of the anterior abdominal wall with no rebound.); No nl liver, spleen, No ascites, No firm, No mass, No rebound or guarding, No splenomegaly, No surgical scars, No tender Genitourinary - Female: nl adnexae, nl external genitalia, CVA tenderness; No CMT, No uterus, No other Musculoskeletal: joint tenderness, muscle tone, muscle weakness, spine non- tender (Severe tenderness of the intrascapular area lumbosacral area with great difficulty to get up to move. 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: FL[employer] 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; No nl mental status, No nl speech, No nl strength, No confused, No DTR's symmetric, No focal weakness, No lethargic, No numbness, No reflexes, No unresponsive, No other Skin: nl turgor; No rash or lesions, No diaphoresis, No ecchymosis, No laceration, No puncture, No other Lymph: No nl lymph nodes, No enlarged, No nontender, No other L BREAST- LARGE L BREAST MASS, DECREASED IN SIZE RUE LYMPHEDEMA Medications Medications Current Medications Anastrozole (Arimidex) 1 mg DAILY PO Last administered on 06/24/18 09:11; Admin Dose 1 MG; Start 04/25/18 at 19:00 Zolpidem Tartrate (Ambien) 10 mg HS PRN PO INSOMNIA; Start 04/25/18 at 23:30 Magnesium Hydroxide (Milk Of Mag) 30 ml DAILY PRN PO CONSTIPATION Last administered on 06/22/18 14:27; Admin Dose 30 ML; Start 04/27/18 at 21:00 Acetaminophen (Tylenol Tab) 500 mg Q6H PRN PO MILD PAIN(1-3)OR ELEVATED TEMP Last administered on 06/02/18at 23:59; Admin Dose 500 MG; Start 05/30/18 at 20:30 Cholecalciferol (Vitamin D) 4,000 unit DAILY PO Last administered on 06/24/18 09:10; Admin Dose 4,000 UNIT; Start 06/02/18 at 09:00 Oxycodone HCl (Oxycontin) 20 mg BID PO Last administered on 06/24/18 09:10; Admin Dose 20 MG; Start 06/03/18 at 21:00 Morphine Sulfate (morphine) 9 mg Q4H PRN PO SEVERE PAIN LEVEL 7-10 Last administered on 06/24/18 06:19; Admin Dose 6 MG; Start 06/04/18 at 10:00 Carvedilol (Coreg) 3.125 mg BID PO Last administered on 06/21/18 20:29; Admin Dose 3.125 MG; Start 06/11/18 at 13:30 Ondansetron HCl (Zofran Inj) 4 mg Q6H PRN IV NAUSEA AND/OR VOMITING Last administered on 06/24/18 09:16; Admin Dose 4 MG; Start 06/17/18 at 07:30 Enoxaparin Sodium (Lovenox) 40 mg Q24H SC Last administered on 06/23/18 18:54; Admin Dose 40 MG; Start 06/19/18 at 18:00 Enalapril Maleate (Vasotec) 2.5 mg DAILY PO Last administered on 06/20/18 10:07; Admin Dose 2.5 MG; Start 06/19/18 at 22:30; Status Hold Lorazepam (Ativan) 1 mg Q8 PRN PO ANXIETY Last administered on 06/21/18 17:52; Admin Dose 1 MG; Start 06/20/18 at 12:30 Escitalopram Oxalate (Lexapro) 10 mg DAILY PO Last administered on 06/24/18 09:09; Admin Dose 10 MG; Start 06/20/18 at 12:30 Spironolactone (Aldactone) 25 mg DAILY NGT Last administered on 06/24/18 09:09; Admin Dose 25 MG; Start 06/20/18 at 13:30 Pantoprazole (Protonix Tab) 40 mg AC BREAKFAST DINNER PO Last administered on 06/24/18 06:07; Admin Dose 40 MG; Start 06/22/18 at 07:20 Furosemide (Lasix) 20 mg DAILY PO Last administered on 06/24/18 09:10; Admin Dose 20 MG; Start 06/22/18 at 09:00 Epoetin Cr (Epogen (Oncology)) 40,000 units Sa@1700 SC Last administered on 06/22/18 17:16; Admin Dose 10,000 UNITS; Start 06/22/18 at 17:00 Polyethylene Glycol (Miralax) 17 gm DAILY PO Last administered on 1/7/19at 09:09; Admin Dose 17 GM; Start 06/24/18 at 08:30 DES DUNAWAY MD Jun 24, 2018 15:47
[2018-06-24] MEDS: ENOXAPARIN 40 MG/0.4 ML SYG SC SCH (18:31)
[2018-06-24 19:51] VITALS: BP 119/74; PULSE 95; RESP 16
[2018-06-25 01:17] VITALS: BP 98/54; PULSE 90; RESP 16
[2018-06-25] MEDS: PANTOPRAZOLE (EC) 40 MG TAB PO SCH ×2 (06:28→17:08)
[2018-06-25 06:58] VITALS: BP 111/69; RESP 18
[2018-06-25] MEDS: morphine LIQ (10 MG/5 ML) CUP PO PRN ×3 (07:17→23:26)
--- NOTE | 2018-06-25 08:22 | PN ---
Date/Time of Note Date/Time of Note DATE: 06/25/18 TIME: 08:21 Assessment/Plan VTE Prophylaxis Risk score (from Ns)>0 risk: 6 SCD applied (from Ns): Yes Pharmacological prophylaxis: NA/contraindicated Pharm contraindication: low risk/ambulating Lines/Catheters IV [facility]from [facility] PORT A CATH Urinary Cath still in place: No Assessment/Plan Hospital Course 58 yo female with h/o metastatic breast cancer with downtrending HH 1. Anemia likely due to chronic disease/chemo -stable -neg FOB x2, no evidence of GI bleeding 2. Cancer of left breast, with multiple bony and pulmonary mets 3. Gallstones and sludge in gallbladder without cholecystitis 4. Heterogeneous liver which may indicate multiple masses, Color Doppler and pulsed Doppler sonography demonstrate normal antegrade flow in the portal vein. -alk 165 5. Severe pain in the interscapular and lumbar sacral area most probably metastatic lesion possible femoral fracture. Pathologic fracture of T9 with 60% of loss of height. Neurosurgical f/u. US of upper abd: 05/20 1. Limited study as described above. 2. Diffusely heterogeneous liver consistent with multiple masses. 3. Gallstones and sludge in the gallbladder. No evidence of cholecystitis. 4. Proximal abdominal aorta not visualized. 5. Spleen not visualized. 6. Otherwise unremarkable abdomen and retroperitoneum ultrasound. Plan: Miralax 17 gm QD Monitor HH and for acute GI bleeding PPI BID Pt examined and plan of care discussed with Dr. Douglass Result Diagram: 06/23/18 0422 06/23/18 0422 Results 24hrs Laboratory Tests Test 06/24/18 09:40 Stool Occult Blood NEGATIVE Subjective 24 Hr Interval Summary Free Text/Dictation NO evidence of GI bleeding. Neg FOB x2. Exam/Review of Systems Vital Signs Vitals Vital Signs Date Temp Pulse Resp B/P (MAP) Pulse Ox O2 O2 Flow FiO2 Time Delivery Rate 06/25/18 98.2 18 111/69 98 Room Air 06:58 (83) 06/25/18 90 2.0 01:17 Intake and Output 06/24/18 06/24/18 06/25/18 1515:00 23:00 07:00 IntakeIntake Total 600 ml BalanceBalance 600 ml Exam Constitutional: alert, oriented Psych: no complaints Head: normocephalic Eyes: PERRL ENMT: mucosa pink and moist Respiratory: clear to auscultation Cardiovascular: regular rate and rhythm Gastrointestinal: soft, non-tender Medications Medications Current Medications Anastrozole (Arimidex) 1 mg DAILY PO Last administered on 06/24/18 09:11; Admin Dose 1 MG; Start 04/25/18 at 19:00 Zolpidem Tartrate (Ambien) 10 mg HS PRN PO INSOMNIA; Start 04/25/18 at 23:30 Magnesium Hydroxide (Milk Of Mag) 30 ml DAILY PRN PO CONSTIPATION Last administered on 06/22/18 14:27; Admin Dose 30 ML; Start 04/27/18 at 21:00 Acetaminophen (Tylenol Tab) 500 mg Q6H PRN PO MILD PAIN(1-3)OR ELEVATED TEMP Last administered on 06/02/18 23:59; Admin Dose 500 MG; Start 05/30/18 at 20:30 Cholecalciferol (Vitamin D) 4,000 unit DAILY PO Last administered on 06/24/18 09:10; Admin Dose 4,000 UNIT; Start 06/02/18 at 09:00 Oxycodone HCl (Oxycontin) 20 mg BID PO Last administered on 06/24/18 20:54; Admin Dose 20 MG; Start 06/03/18 at 21:00 Morphine Sulfate (morphine) 9 mg Q4H PRN PO SEVERE PAIN LEVEL 7-10 Last administered on 06/25/18 07:17; Admin Dose 9 MG; Start 06/04/18 at 10:00 Carvedilol (Coreg) 3.125 mg BID PO Last administered on 06/21/18 20:29; Admin Dose 3.125 MG; Start 06/11/18 at 13:30 Ondansetron HCl (Zofran Inj) 4 mg Q6H PRN IV NAUSEA AND/OR VOMITING Last administered on 06/24/18 09:16; Admin Dose 4 MG; Start 06/17/18 at 07:30 Enoxaparin Sodium (Lovenox) 40 mg Q24H SC Last administered on 06/24/18 18:31; Admin Dose 40 MG; Start 06/19/18 at 18:00 Enalapril Maleate (Vasotec) 2.5 mg DAILY PO Last administered on 06/20/18 10:07; Admin Dose 2.5 MG; Start 06/19/18 at 22:30; Status Hold Lorazepam (Ativan) 1 mg Q8 PRN PO ANXIETY Last administered on 06/21/18 17:52; Admin Dose 1 MG; Start 06/20/18 at 12:30 Escitalopram Oxalate (Lexapro) 10 mg DAILY PO Last administered on 06/24/18 09:09; Admin Dose 10 MG; Start 06/20/18 at 12:30 Spironolactone (Aldactone) 25 mg DAILY NGT Last administered on 06/24/18 09:09; Admin Dose 25 MG; Start 06/20/18 at 13:30 Pantoprazole (Protonix Tab) 40 mg AC BREAKFAST DINNER PO Last administered on 06/25/18 06:28; Admin Dose 40 MG; Start 06/22/18 at 07:20 Furosemide (Lasix) 20 mg DAILY PO Last administered on 06/24/18 09:10; Admin Dose 20 MG; Start 06/22/18 at 09:00 Epoetin Cr (Epogen (Oncology)) 40,000 units Sa@1700 SC Last administered on 06/22/18 17:16; Admin Dose 10,000 UNITS; Start 06/22/18 at 17:00 Polyethylene Glycol (Miralax) 17 gm DAILY PO Last administered on 06/24/18 09:09; Admin Dose 17 GM; Start 06/24/18 at 08:30 CATHERINE MARQUEZ Jun 25, 2018 08:22
[2018-06-25] MEDS: SPIRONOLACTONE 25 MG TAB NGT SCH (09:00)
[2018-06-25] MEDS: POLYETHYLENE GLYCOL 17 GM PACKET PO SCH (09:00)
[2018-06-25] MEDS: CHOLECALCIFEROL 2,000 UNIT CAP PO SCH (09:42)
[2018-06-25] MEDS: ESCITALOPRAM 10 MG TAB PO SCH (09:43)
[2018-06-25] MEDS: FUROSEMIDE 20 MG TAB PO SCH (09:43)
[2018-06-25] MEDS: oxyCODONE (CR) 20 MG TAB [oxyCONTIN] PO SCH ×2 (09:44→21:01)
[2018-06-25] MEDS: ANASTROZOLE 1 MG TAB PO SCH (09:48)
--- NOTE | 2018-06-25 10:43 | CONS ---
Date/Time of Note Date/Time of Note DATE: 06/25/18 TIME: 10:41 Assessment/Plan Assessment/Plan Assessment/Plan 1.CHF-diastolic acute on chronic. Reasonable volume status. laying flat EF 55% by echo this admit - responded to gentle diuresis - stable. 2.HTN-currently borderline hypotension - stable 3.Breast CA-metastatic to bones- awaiting CHEMO Rx - DR. Fernández to Rx - diffuse metastatic disease . 4.Anemia - no active bleed noted - stable now 5.Hyponatremia-improved 6.Compression fractures 7. UTI s/p course abx -on anti-Bx Result Diagram: 06/23/1842106/23/18421 Consultation Date/Type/Reason Admit Date/Time Apr 25, 2018 at 14:37 Initial Consult Date 04/26/18 Requesting Provider: RUSS JEROME MD 24 HR Interval Summary Free Text/Dictation NO acute events - chemo per Dr. Fernández now ROS: No fever, no chills, no nausea, no vomiting, no diarrhea/constipation No recent weight changes No chest pain, no PND, no orthopnea - mild SOB No dizziness, blurred vision No thirst, no heat or cold intolerance Exam/Review of Systems Vital Signs Vitals Vital Signs Date Temp Pulse Resp B/P (MAP) Pulse Ox O2 O2 Flow FiO2 Time Delivery Rate 06/25/18 98.2 18 111/69 98 Room Air 06:58 (83) 06/25/18 90 2.0 01:17 Intake and Output 06/24/18 06/24/18 06/25/18 1515:00 23:00 07:00 IntakeIntake Total 600 ml BalanceBalance 600 ml Exam General: WN/WD/NAD, AOx 3 HEENT: Unicetric/atraumatic/EOMI (follow commands) NECK: JVD elevated, no thyromegaly Lymph: no lymphadenopathy HEART: regular with no S3, II/ systolic murmur at apex LUNGS: Coarse sounds ABD: soft, NT, ND, +BS : Intact Neuro: non focal SKIN: chronic changes EXT: trace edema Medications Medications Current Medications Anastrozole (Arimidex) 1 mg DAILY PO Last administered on 06/25/18at 09:48; Admin Dose 1 MG; Start 04/25/18 at 19:00 Zolpidem Tartrate (Ambien) 10 mg HS PRN PO INSOMNIA; Start 04/25/18 at 23:30 Magnesium Hydroxide (Milk Of Mag) 30 ml DAILY PRN PO CONSTIPATION Last administered on 06/22/18 14:27; Admin Dose 30 ML; Start 04/27/18 at 21:00 Acetaminophen (Tylenol Tab) 500 mg Q6H PRN PO MILD PAIN(1-3)OR ELEVATED TEMP Last administered on 06/02/18 23:59; Admin Dose 500 MG; Start 05/30/18 at 20:30 Cholecalciferol (Vitamin D) 4,000 unit DAILY PO Last administered on 06/25/18 09:42; Admin Dose 4,000 UNIT; Start 06/02/18 at 09:00 Oxycodone HCl (Oxycontin) 20 mg BID PO Last administered on 06/25/18 09:44; Admin Dose 20 MG; Start 06/03/18 at 21:00 Morphine Sulfate (morphine) 9 mg Q4H PRN PO SEVERE PAIN LEVEL 7-10 Last administered on 06/25/18 07:17; Admin Dose 9 MG; Start 06/04/18 at 10:00 Carvedilol (Coreg) 3.125 mg BID PO Last administered on 06/21/18 20:29; Admin Dose 3.125 MG; Start 06/11/18 at 13:30 Ondansetron HCl (Zofran Inj) 4 mg Q6H PRN IV NAUSEA AND/OR VOMITING Last admin istered on 06/24/18 09:16; Admin Dose 4 MG; Start 06/17/18 at 07:30 Enoxaparin Sodium (Lovenox) 40 mg Q24H SC Last administered on 06/24/18 18:31; Admin Dose 40 MG; Start 06/19/18 at 18:00 Enalapril Maleate (Vasotec) 2.5 mg DAILY PO Last administered on 06/20/18 10:07; Admin Dose 2.5 MG; Start 06/19/18 at 22:30; Status Hold Lorazepam (Ativan) 1 mg Q8 PRN PO ANXIETY Last administered on 06/21/18 17:52; Admin Dose 1 MG; Start 06/20/18 at 12:30 Escitalopram Oxalate (Lexapro) 10 mg DAILY PO Last administered on 06/25/18 09:43; Admin Dose 10 MG; Start 06/20/18 at 12:30 Spironolactone (Aldactone) 25 mg DAILY NGT Last administered on 06/24/18 09:09; Admin Dose 25 MG; Start 06/20/18 at 13:30 Pantoprazole (Protonix Tab) 40 mg AC BREAKFAST DINNER PO Last administered on 06/25/18 06:28; Admin Dose 40 MG; Start 06/22/18 at 07:20 Furosemide (Lasix) 20 mg DAILY PO Last administered on 06/25/18 09:43; Admin Dose 20 MG; Start 06/22/18 at 09:00 Epoetin Cr (Epogen (Oncology)) 40,000 units Sa@1700 SC Last administered on 06/22/18 17:16; Admin Dose 10,000 UNITS; Start 06/22/18 at 17:00 Polyethylene Glycol (Miralax) 17 gm DAILY PO Last administered on 06/24/18 09:09; Admin Dose 17 GM; Start 06/24/18 at 08:30 EMILY NELSON MD Jun 25, 2018 10:43
--- NOTE | 2018-06-25 14:02 | DS ---
Date/Time of Note Date/Time of Note DATE: 06/25/18 TIME: 13:55 Discharge Summary Admission/Discharge Info Admit Date/Time Apr 25, 2018 at 14:37 Discharge Date/Time June 25, 2018 16 00. Discharge Diagnosis 1. Cancer of the left and left breast. Exact type at this time unknown.MULTIPLE BONY METS, PULMONARY METS 2. Severe pain in the interscapular and lumbar sacral area most probably m etastatic lesion possible femoral fracture. pathologic fracture of T9 with 60% of loss of height. Neurosurgical consult planned. 3. Obesity. 4. Weight loss 60 pounds during the last 2 years by diet 5. PMS. 6. Myopia. 7. Anemia chronic disease. 8. Anxiety disorder. 9. Posttraumatic stress disorder. 10. Pain in the left forearm with a history of fracture of ulna and radius. 11. Tachycardia 12. Hypoxemia at night marginal improved after 2 L of nasal cannula oxygen. 13. Process at night. 14. 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 15. Pain syndrome. 16. Hyponatremia 17. Leukopenia 18. Episodes of fever and chills. 19. Persistent swelling of the right leg with trace swelling of the left leg. Negative venous Doppler bilaterally of lower extremities. Cont Hosp Indication/DC Plan: placement in snf. Consults Dr. Georgette Hurtado. Hx of Present Illness This 58 years old white female with known diagnosis of breast cancer with multiple metastases mainly to the spine pelvis and other bones with pain syndrome received radiation therapy along with the chemotherapy at the pain management. The patient had developed a leukopenia along with anemia thrombocytopenia. No blood transfusion was done stimulating factor worked WBCs are now normal. Continues to be in the pain. Swelling of the right lower extremity persists which is less than before after receiving sodium chloride mentation to correct her hyponatremia. Fluids and electrolytes now are better controlled and corrected. Going to receive chemotherapy under the care of Dr. Palomino. Plan to transfer to the longterm facility. I had a conversation with the [facility] and if they agreed to accept her I will follow her as an outpatient. Hospital Course After radiation therapy and chemotherapy treatment of her CHF and hypoxemia along with pain control overall her condition is improved. Current treatment treatment must be continued fall precautions will be assured. Initially patient was planned to be discharged on 1411May 2018. The decision was changed to to avoid severe leukopenia anemia fever and chills and leukopenia condition. She responded to the treatment and other measures as well. Home Meds Active Scripts Polyethylene Glycol* (Miralax*) 17 Gm Powd.pack, 17 GM PO BID for 30 Days, #60 BOTTLE Prov:RUSS JEROME MD 05/30/18 Magnesium Hydroxide* (Steinberg' MOM*) 30 Ml Susp, 30 ML PO DAILY PRN for CONSTIPATION for 14 Days, #20 CAP.EC Prov:RUSS JEROME MD 05/30/18 Docusate Sodium (Dok) 100 Mg Capsule, 200 MG PO BID for 30 Days, #60 CAP Prov:RUSS JEROME MD 05/30/18 Oxycodone Hcl* (Oxycontin*) 20 Mg Tab.er.12h, 20 MG PO BID for 30 Days, #60 TAB Prov:RUSS JEROME MD 05/30/18 Zolpidem Tartrate (Ambien Hector) 5 Mg Tablet, 10 MG PO HS PRN for INSOMNIA for 30 Days, #30 TAB Prov:RUSS JEROME MD 05/30/18 Lorazepam* (Ativan*) 0.5 Mg Tablet, 0.5 MG PO TID PRN for ANXIETY for 30 Days, #30 TAB Prov:RUSS JEROME MD 05/30/18 Acetaminophen* (Tylenol*) 500 Mg Tab, 500 MG PO Q6H PRN for MILD PAIN(1-3)OR ELEVATED TEMP for 30 Days, #120 TAB Prov:RUSS JEROME MD 05/30/18 Benazepril Hcl* (Benazepril Hcl*) 5 Mg Tablet, 5 MG PO BID for 30 Days, #30 TAB Prov:RUSS JEROME MD 05/30/18 Amlodipine Besylate* (Amlodipine Besylate*) 5 Mg Tablet, 5 MG PO BID for 30 Days, #60 TAB Prov:RUSS JEROME MD 05/30/18 Anastrozole* (Arimidex*) 1 Mg Tablet, 1 MG PO DAILY for 30 Days, #30 TAB Prov:RUSS JEROME MD 05/30/18 Follow-up Plan We will follow in a longterm facility. Patient will be followed by Dr. Palomino for chemotherapy and follow up. Primary Care Provider Avoid P V.Pilossyan. Time spent on discharge: > 30 minutes RUSS JEROME MD Jun 25, 2018 14:02
[2018-06-25 14:38] VITALS: BP 133/79; PULSE 91; RESP 18
[2018-06-25] MEDS: ENOXAPARIN 40 MG/0.4 ML SYG SC SCH (17:09)
--- NOTE | 2018-06-25 18:12 | CONS ---
Date/Time of Note Date/Time of Note DATE: 06/25/18 TIME: 18:11 Assessment/Plan Assessment/Plan Hospital Course NEUTROPENIC FEVER- RESOLVED neutropenia- improving NEUPOGEN- DC CULTURES- NOTED post ATB MALFUNCTION OF PORTACATH, CORRECTED DR BUSH ADJUSTMENT METASTATIC BREAST Cancer ( PRIMARY IS IN THE L BREAST ) with MULTIPLE BONY METS, PULMONARY METS, Extensive liver metastasis - ALL PRESENT AT BASELINE AT THE TIME OF INITIAL DX SEVERE T-L SPINE PAIN WITH DIFFICULTIES TO AMBULATE MRI T-L SPINE- Diffuse osseous metastatic disease of the visualized thoracic spine (T10 - T12), the entire lumbar spine, sacrum, and bilateral iliac bones. Expansion of the posterior T9 vertebral body resulting in central canal stenosis with AP diameter measuring 8 mm. DC ORAL DECADRON CONT AI PAIN CONTROL MRI C - SPINE AND R HIP NOTED BONE SCAN -Multiple skeletal metastases in the axial and appendicular skeleton COMPLETED XRT PLAN CHEMO- TAXOTERE POST PORTACATH PLACEMENT L BREAST- LARGE L BREAST MASS, DECREASED IN SIZE LUE LYMPHEDEMA DOPPLER NEG CT CHEST- NOTED LLE EDEMA CHECK DOPPLER CONT LOVENOX R FEMORAL LESION Because of the extensive and widespread metastatic lesion involving both vestibular part and proximal femoral part of the right hip and e laine if any surgical procedure is considered, she will need a special custom made acetabular part and proximal femoral part, which can be done in a big [facility], probably by oncologic orthopedic surgeon. Even if surgery is considered and she needs to be transferred to a [facility] for the higher level of care including evaluation and care by oncology orthopedic surgeon, it is possible that because of the extensiveness of the metastatic lesions further surgical treatment may not be the recommended. PAIN CONT OXYCONTIN FLUID OVERLOAD CARD EVAL POOR IV ACCESS - post PORTACATH Obesity. Weight loss 60 pounds during the last 2 years by diet PMS. Myopia. Anemia chronic disease. Anxiety disorder. Posttraumatic stress disorder. Pain in the left forearm with a history of fracture of ulna and radius. 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 Requesting Provider: RUSS JEROME MD 24 HR Interval Summary Free Text/Dictation NAD Exam/Review of Systems Vital Signs Vitals Vital Signs Date Temp Pulse Resp B/P (MAP) Pulse Ox O2 O2 Flow FiO2 Time Delivery Rate 06/25/18 98.1 91 18 133/79 99 Room Air 14:38 (97) 06/25/18 2.0 01:17 Intake and Output 06/24/18 06/24/18 06/25/18 1414:59 22:59 06:59 IntakeIntake Total 600 ml BalanceBalance 600 ml Exam Constitutional: alert, oriented, well developed, distress, frail; No non-verbal, No other Psych: anxiety, depression; No no complaints, No nl mood/affect, No confusion, No suicidal, No other Head: normocephalic, atraumatic; No lacerations, No hematomas, No other Eyes: EOMI, nl lids, PERRL; No nl conjunctiva, No nl sclera, No icteric, No fundi, disc, No other ENMT: tympanic membranes; No nl external ears & nose, No nl lips & teeth, No nl nasal mucosa & septum, No mucosa pink and moist, No intubated, No other Neck: supple, non-tender, jvd, bruits; No masses, No thyromegaly, No nuchal rigidity, No other Respiratory: clear to auscultation, normal air movement, crackles/rales, diminished breath sounds, respirations; No congested cough, No intercostal retraction, No labored breathing, No tactile fremitus, No wheezing, No other Cardiovascular: regular rate and rhythm, bruits, jugular venous distention (JVD), systolic murmur; No nl pulses, No diastolic murmur, No edema, No gallop, No irregular rhythm, No murmurs/extra sounds, No rub, No S3, No S4, No other Gastrointestinal: soft, non-tender, bowel sounds, distended, hepatomegaly, other (Obesity with thick fatty layer of the anterior abdominal wall with no rebound.); No nl liver, spleen, No ascites, No firm, No mass, No rebound or guarding, No splenomegaly, No surgical scars, No tender Genitourinary - Female: nl adnexae, nl external genitalia, CVA tenderness; No CMT, No uterus, No other Musculoskeletal: joint tenderness, muscle tone, muscle weakness, spine non-tend er (Severe tenderness of the intrascapular area lumbosacral area with great difficulty to get up to move. 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; No nl mental status, No nl speech, No nl strength, No confused, No DTR's symmetric, No focal weakness, No lethargic, No numbness, No reflexes, No unresponsive, No other Skin: nl turgor; No rash or lesions, No diaphoresis, No ecchymosis, No laceration, No punctur e, No other Lymph: No nl lymph nodes, No enlarged, No nontender, No other BREAST- LARGE L BREAST MASS- NOW SMALLER Medications Medications Current Medications Anastrozole (Arimidex) 1 mg DAILY PO Last administered on 06/25/18 09:48; Admin Dose 1 MG; Start 04/25/18 at 19:00 Zolpidem Tartrate (Ambien) 10 mg HS PRN PO INSOMNIA; Start 04/25/18 at 23:30 Magnesium Hydroxide (Milk Of Mag) 30 ml DAILY PRN PO CONSTIPATION Last administered on 06/22/18 14:27; Admin Dose 30 ML; Start 04/27/18 at 21:00 Acetaminophen (Tylenol Tab) 500 mg Q6H PRN PO MILD PAIN(1-3)OR ELEVATED TEMP Last administered on 06/02/18at 23:59; Admin Dose 500 MG; Start 05/30/18 at 20:30 Cholecalciferol (Vitamin D) 4,000 unit DAILY PO Last administered on 06/25/18 09:42; Admin Dose 4,000 UNIT; Start 06/02/18 at 09:00 Oxycodone HCl (Oxycontin) 20 mg BID PO Last administered on 06/25/18 09:44; Admin Dose 20 MG; Start 06/03/18 at 21:00 Morphine Sulfate (morphine) 9 mg Q4H PRN PO SEVERE PAIN LEVEL 7-10 Last administered on 06/25/18 17:11; Admin Dose 9 MG; Start 06/04/18 at 10:00 Carvedilol (Coreg) 3.125 mg BID PO Last administered on 06/21/18 20:29; Admin Dose 3.125 MG; Start 06/11/18 at 13:30 Ondansetron HCl (Zofran Inj) 4 mg Q6H PRN IV NAUSEA AND/OR VOMITING Last administered on 06/24/18 09:16; Admin Dose 4 MG; Start 06/17/18 at 07:30 Enoxaparin Sodium (Lovenox) 40 mg Q24H SC Last administered on 06/25/18 17:09; Admin Dose 40 MG; Start 06/19/18 at 18:00 Enalapril Maleate (Vasotec) 2.5 mg DAILY PO Last administered on 06/20/18 10:07; Admin Dose 2.5 MG; Start 06/19/18 at 22:30; Status Hold Lorazepam (Ativan) 1 mg Q8 PRN PO ANXIETY Last administered on 06/21/18 17:52; Admin Dose 1 MG; Start 06/20/18 at 12:30 Escitalopram Oxalate (Lexapro) 10 mg DAILY PO Last administered on 06/25/18 09:43; Admin Dose 10 MG; Start 06/20/18 at 12:30 Spironolactone (Aldactone) 25 mg DAILY NGT Last administered on 06/24/18 09:09; Admin Dose 25 MG; Start 06/20/18 at 13:30 Pantoprazole (Protonix Tab) 40 mg AC BREAKFAST DINNER PO Last administered on 06/25/18 17:08; Admin Dose 40 MG; Start 06/22/18 at 07:20 Furosemide (Lasix) 20 mg DAILY PO Last administered on 06/25/18 09:43; Admin Dose 20 MG; Start 06/22/18 at 09:00 Epoetin Cr (Epogen (Oncology)) 40,000 units Sa@1700 SC Last administered on 06/22/18 17:16; Admin Dose 10,000 UNITS; Start 06/22/18 at 17:00 Polyethylene Glycol (Miralax) 17 gm DAILY PO Last administered on 06/24/18 09:09; Admin Dose 17 GM; Start 06/24/18 at 08:30 DES DUNAWAY MD Jun 25, 2018 18:12
[2018-06-25 20:30] VITALS: BP 123/70; PULSE 84; RESP 19
[2018-06-25] MEDS: MAGNESIUM HYDROXIDE 30ML CUP PO PRN (21:01)
[2018-06-25] MEDS: ONDANSETRON 4 MG INJ IV PRN (23:28)
[2018-06-26 02:40] VITALS: BP 129/68; PULSE 86; RESP 18
[2018-06-26] MEDS: morphine LIQ (10 MG/5 ML) CUP PO PRN ×3 (03:51→15:00)
[2018-06-26] MEDS: PANTOPRAZOLE (EC) 40 MG TAB PO SCH (05:52)
--- NOTE | 2018-06-26 06:50 | PN ---
Date/Time of Note Date/Time of Note DATE: 06/26/18 TIME: 06:49 Assessment/Plan VTE Prophylaxis Risk score (from Ns)>0 risk: 6 SCD applied (from Ns): Yes Pharmacological prophylaxis: NA/contraindicated Pharm contraindication: low risk/ambulating Lines/Catheters IV [facility]ter [facility]from [facility]): DEVONTE CATH Urinary Cath still in place: No Assessment/Plan Hospital Course 58 yo female with h/o metastatic breast cancer with downtrending HH 1. Anemia likely due to chronic disease/chemo -stable -neg FOB x2, no evidence of GI bleeding 2. Cancer of left breast, with multiple bony and pulmonary mets 3. Gallstones and sludge in gallbladder without cholecystitis 4. Heterogeneous liver which may indicate multiple masses, Color Doppler and pulsed Doppler sonography demonstrate normal antegrade flow in the portal vein. -alk 165 could be from bone mets 5. Severe pain in the interscapular and lumbar sacral area most probably metastatic lesion possible femoral fracture. Pathologic fracture of T9 with 60% of loss of height. Neurosurgical f/u. US of upper abd: 05/20 1. Limited study as described above. 2. Diffusely heterogeneous liver consistent with multiple masses. 3. Gallstones and sludge in the gallbladder. No evidence of cholecystitis. 4. Proximal abdominal aorta not visualized. 5. Spleen not visualized. 6. Otherwise unremarkable abdomen and retroperitoneum ultrasound. 7. Opioid induced constipation Plan: Amitiza 24 mcg BID, Dulcolax 10 mg x1 Continue present care Monitor HH and for acute GI bleeding PPI BID Pt examined and plan of care discussed with Dr. Douglass Result Diagram: 06/23/18 0422 06/23/18 0422 Subjective 24 Hr Interval Summary Free Text/Dictation No evidence of GI bleeding. No acute changes. Exam/Review of Systems Vital Signs Vitals Vital Signs Date Temp Pulse Resp B/P (MAP) Pulse Ox O2 O2 Flow FiO2 Time Delivery Rate 06/26/18 98.6 86 18 129/68 96 02:40 (88) 06/25/18 Room Air 14:38 06/25/18 2.0 01:17 Intake and Output 06/25/18 06/25/18 06/26/18 1515:00 23:00 07:00 IntakeIntake Total 400 ml 640 ml 120 ml BalanceBalance 400 ml 640 ml 120 ml Exam Constitutional: alert, oriented Psych: no complaints Head: normocephalic Eyes: nl sclera, PERRL ENMT: mucosa pink and moist Respiratory: clear to auscultation Gastrointestinal: soft, non-tender 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: nl mental status Medications Medications Current Medications Anastrozole (Arimidex) 1 mg DAILY PO Last administered on 06/25/18 09:48; Admin Dose 1 MG; Start 04/25/18 at 19:00 Zolpidem Tartrate (Ambien) 10 mg HS PRN PO INSOMNIA; Start 04/25/18 at 23:30 Magnesium Hydroxide (Milk Of Mag) 30 ml DAILY PRN PO CONSTIPATION Last administered on 06/25/18 21:01; Admin Dose 30 ML; Start 04/27/18 at 21:00 Acetaminophen (Tylenol Tab) 500 mg Q6H PRN PO MILD PAIN(1-3)OR ELEVATED TEMP Last administered on 06/02/18 23:59; Admin Dose 500 MG; Start 05/30/18 at 20: 30 Cholecalciferol (Vitamin D) 4,000 unit DAILY PO Last administered on 06/25/18 09:42; Admin Dose 4,000 UNIT; Start 06/02/18 at 09:00 Oxycodone HCl (Oxycontin) 20 mg BID PO Last administered on 06/25/18 21:01; Admin Dose 20 MG; Start 06/03/18 at 21:00 Morphine Sulfate (morphine) 9 mg Q4H PRN PO SEVERE PAIN LEVEL 7-10 Last administered on 06/26/18 03:51; Admin Dose 9 MG; Start 06/04/18 at 10:00 Carvedilol (Coreg) 3.125 mg BID PO Last administered on 06/25/18 21:01; Admin Dose 3.125 MG; Start 06/11/18 at 13:30 Ondansetron HCl (Zofran Inj) 4 mg Q6H PRN IV NAUSEA AND/OR VOMITING Last adm inistered on 06/25/18 23:28; Admin Dose 4 MG; Start 06/17/18 at 07:30 Enoxaparin Sodium (Lovenox) 40 mg Q24H SC Last administered on 06/25/18 17:09; Admin Dose 40 MG; Start 06/19/18 at 18:00 Enalapril Maleate (Vasotec) 2.5 mg DAILY PO Last administered on 06/20/18 10:07; Admin Dose 2.5 MG; Start 06/19/18 at 22:30; Status Hold Lorazepam (Ativan) 1 mg Q8 PRN PO ANXIETY Last administered on 06/21/18 17:52; Admin Dose 1 MG; Start 06/20/18 at 12:30 Escitalopram Oxalate (Lexapro) 10 mg DAILY PO Last administered on 06/25/18 09:43; Admin Dose 10 MG; Start 06/20/18 at 12:30 Spironolactone (Aldactone) 25 mg DAILY NGT Last administered on 06/24/18 09:09; Admin Dose 25 MG; Start 06/20/18 at 13:30 Pantoprazole (Protonix Tab) 40 mg AC BREAKFAST DINNER PO Last administered on 06/26/18 05:52; Admin Dose 40 MG; Start 06/22/18 at 07:20 Furosemide (Lasix) 20 mg DAILY PO Last administered on 06/25/18 09:43; Admin Dose 20 MG; Start 06/22/18 at 09:00 Epoetin Cr (Epogen (Oncology)) 40,000 units Sa@1700 SC Last administered on 06/22/18 17:16; Admin Dose 10,000 UNITS; Start 06/22/18 at 17:00 Polyethylene Glycol (Miralax) 17 gm DAILY PO Last administered on 06/24/18 09:09; Admin Dose 17 GM; Start 06/24/18 at 08:30 CATHERINE MARQUEZ Jun 26, 2018 06:50
[2018-06-26] MEDS ORDERED: BISACODYL (EC) 5 MG TAB PO PRN (07:30)
[2018-06-26 07:56] VITALS: BP 90/52; PULSE 81; RESP 16
[2018-06-26] MEDS ORDERED: HEPARIN (100 UNITS/ML) 5 ML SYG CATHETER ONE (08:00)
[2018-06-26] MEDS: FUROSEMIDE 20 MG TAB PO SCH (08:52)
[2018-06-26] MEDS: ESCITALOPRAM 10 MG TAB PO SCH (08:53)
[2018-06-26] MEDS: CHOLECALCIFEROL 2,000 UNIT CAP PO SCH (08:53)
[2018-06-26] MEDS: oxyCODONE (CR) 20 MG TAB [oxyCONTIN] PO SCH (08:53)
[2018-06-26] MEDS: POLYETHYLENE GLYCOL 17 GM PACKET PO SCH (08:53)
[2018-06-26] MEDS: SPIRONOLACTONE 25 MG TAB NGT SCH (08:53)
[2018-06-26] MEDS: ANASTROZOLE 1 MG TAB PO SCH (08:54)
[2018-06-26] MEDS ORDERED: LUBIPROSTONE 24 MCG CAP PO SCH (09:00)
--- NOTE | 2018-06-26 11:34 | CONS ---
Date/Time of Note Date/Time of Note DATE: 06/26/18 TIME: 11:33 Assessment/Plan Assessment/Plan Hospital Course NEUTROPENIC FEVER- RESOLVED neutropenia- improving NEUPOGEN- DC CULTURES- NOTED post ATB MALFUNCTION OF PORTACATH, CORRECTED DR BUSH ADJUSTMENT METASTATIC BREAST Cancer ( PRIMARY IS IN THE L BREAST ) with MULTIPLE BONY METS, PULMONARY METS, Extensive liver metastasis - ALL PRESENT AT BASELINE AT THE TIME OF INITIAL DX SEVERE T-L SPINE PAIN WITH DIFFICULTIES TO AMBULATE MRI T-L SPINE- Diffuse osseous metastatic disease of the visualized thoracic spine (T10 - T12), the entire lumbar spine, sacrum, and bilateral iliac bones. Expansion of the posterior T9 vertebral body resulting in central canal stenosis with AP diameter measuring 8 mm. DC ORAL DECADRON CONT AI PAIN CONTROL MRI C - SPINE AND R HIP NOTED BONE SCAN -Multiple skeletal metastases in the axial and appendicular skeleton COMPLETED XRT PLAN CHEMO- TAXOTERE POST PORTACATH PLACEMENT L BREAST- LARGE L BREAST MASS, DECREASED IN SIZE LUE LYMPHEDEMA DOPPLER NEG CT CHEST- NOTED LLE EDEMA CHECK DOPPLER CONT LOVENOX R FEMORAL LESION Because of the extensive and widespread metastatic lesion involving both vestibular part and proximal femoral part of the right hip and e laine if any surgical procedure is considered, she will need a special custom made acetabular part and proximal femoral part, which can be done in a big [facility], probably by oncologic orthopedic surgeon. Even if surgery is considered and she needs to be transferred to a [facility] for the higher level of care including evaluation and care by oncology orthopedic surgeon, it is possible that because of the extensiveness of the metastatic lesions further surgical treatment may not be the recommended. PAIN CONT OXYCONTIN FLUID OVERLOAD CARD EVAL POOR IV ACCESS - post PORTACATH Obesity. Weight loss 60 pounds during the last 2 years by diet PMS. Myopia. Anemia chronic disease. Anxiety disorder. Posttraumatic stress disorder. Pain in the left forearm with a history of fracture of ulna and radius. 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 TO SNF- D/W DR WHEAT Result Diagram: 06/23/1842106/23/18421 Consultation Date/Type/Reason Admit Date/Time Apr 25, 2018 at 14:37 Initial Consult Date 04/25/18 Type of Consult [facility] Requesting Provider: RUSS JEROME MD 24 HR Interval Summary Free Text/Dictation all noted Exam/Review of Systems Vital Signs Vitals Vital Signs Date Temp Pulse Resp B/P (MAP) Pulse Ox O2 O2 Flow FiO2 Time Delivery Rate 06/26/18 98.0 81 16 90/52 (65) 91 Room Air 07:56 06/25/18 2.0 01:17 Intake and Output 06/25/18 06/25/18 06/26/18 1515:00 23:00 07:00 IntakeIntake Total 400 ml 640 ml 120 ml BalanceBalance 400 ml 640 ml 120 ml Exam Constitutional: alert, oriented, well developed, distress, frail; No non-verbal, No other Psych: anxiety, depression; No no complaints, No nl mood/affect, No confusion, No suicidal, No other Head: normocephalic, atraumatic; No lacerations, No hematomas, No other Eyes: EOMI, nl lids, PERRL; No nl conjunctiva, No nl sclera, No icteric, No fundi, disc, No other ENMT: tympanic membranes; No nl external ears & nose, No nl lips & teeth, No nl nasal mucosa & septum, No mucosa pink and moist, No intubated, No other Neck: supple, non-tender, jvd, bruits; No masses, No thyromegaly, No nuchal rigidity, No other Respiratory: clear to auscultation, normal air movement, crackles/rales, diminished breath sounds, respirations; No congested cough, No intercostal retraction, No labored breathing, No tac tile fremitus, No wheezing, No other Cardiovascular: regular rate and rhythm, bruits, jugular venous distention (JVD), systolic murmur; No nl pulses, No diastolic murmur, No edema, No gallop, No irregular rhythm, No murmurs/extra sounds, No rub, No S3, No S4, No other Gastrointestinal: soft, non-tender, bowel sounds, distended, hepatomegaly, other (Obesity with thick fatty layer of the anterior abdominal wall with no rebound.); No nl liver, spleen, No ascites, No firm, No mass, No rebound or guarding, No splenomegaly, No surgical scars, No tender Genitourinary - Female: nl adnexae, nl external genitalia, CVA tenderness; No CMT, No uterus, No other Musculoskeletal: joint tenderness, muscle tone, muscle weakness, spine non- tender (Severe tenderness of the intrascapular area lumbosacral area with great difficulty to get up to move. 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; No nl mental status, No nl speech, No nl strength, No confused, No DTR's symmetric, No focal weakness, No lethargic, No numbness, No reflexes, No unresponsive, No other Skin: nl turgor; No rash or lesions, No diaphoresis, No ecchymosis, No laceration, No puncture, No other Lymph: No nl lymph nodes, No enlarged, No nontender, No other BREAST- LARGE L BREAST MASS- NOW SMALLER Medications Medications Current Medications Anastrozole (Arimidex) 1 mg DAILY PO Last administered on 06/26/18 08:54; Admin Dose 1 MG; Start 04/25/18 at 19:00 Zolpidem Tartrate (Ambien) 10 mg HS PRN PO INSOMNIA; Start 04/25/18 at 23:30 Magnesium Hydroxide (Milk Of Mag) 30 ml DAILY PRN PO CONSTIPATION Last administered on 06/25/18 21:01; Admin Dose 30 ML; Start 04/27/18 at 21:00 Acetaminophen (Tylenol Tab) 500 mg Q6H PRN PO MILD PAIN(1-3)OR ELEVATED TEMP Last administered on 06/02/18at 23:59; Admin Dose 500 MG; Start 05/30/18 at 20:30 Cholecalciferol (Vitamin D) 4,000 unit DAILY PO Last administered on 06/26/18 08:53; Admin Dose 4,000 UNIT; Start 06/02/18 at 09:00 Oxycodone HCl (Oxycontin) 20 mg BID PO Last administered on 06/26/18 08:53; Admin Dose 20 MG; Start 06/03/18 at 21:00 Morphine Sulfate (morphine) 9 mg Q4H PRN PO SEVERE PAIN LEVEL 7-10 Last admini stered on 06/26/18 08:02; Admin Dose 9 MG; Start 06/04/18 at 10:00 Carvedilol (Coreg) 3.125 mg BID PO Last administered on 06/25/18 21:01; Admin Dose 3.125 MG; Start 06/11/18 at 13:30 Ondansetron HCl (Zofran Inj) 4 mg Q6H PRN IV NAUSEA AND/OR VOMITING Last administered on 06/25/18 23:28; Admin Dose 4 MG; Start 06/17/18 at 07:30 Enoxaparin Sodium (Lovenox) 40 mg Q24H SC Last administered on 06/25/18 17:09; Admin Dose 40 MG; Start 06/19/18 at 18:00 Enalapril Maleate (Vasotec) 2.5 mg DAILY PO Last administered on 06/20/18 10:07; Admin Dose 2.5 MG; Start 06/19/18 at 22:30; Status Hold Lorazepam (Ativan) 1 mg Q8 PRN PO ANXIETY Last administered on 06/21/18 17:52; Admin Dose 1 MG; Start 06/20/18 at 12:30 Escitalopram Oxalate (Lexapro) 10 mg DAILY PO Last administered on 06/26/18 08:53; Admin Dose 10 MG; Start 06/20/18 at 12:30 Spironolactone (Aldactone) 25 mg DAILY NGT Last administered on 06/26/18 08:53; Admin Dose 25 MG; Start 06/20/18 at 13:30 Pantoprazole (Protonix Tab) 40 mg AC BREAKFAST DINNER PO Last administered on 06/26/18 05:52; Admin Dose 40 MG; Start 06/22/18 at 07:20 Furosemide (Lasix) 20 mg DAILY PO Last administered on 06/26/18 08:52; Admin Dose 20 MG; Start 06/22/18 at 09:00 Epoetin Cr (Epogen (Oncology)) 40,000 units Sa@1700 SC Last administered on 06/22/18 17:16; Admin Dose 10,000 UNITS; Start 06/22/18 at 17:00 Polyethylene Glycol (Miralax) 17 gm DAILY PO Last administered on 06/26/18 08:53; Admin Dose 17 GM; Start 06/24/18 at 08:30 Lubiprostone (Amitiza) 24 mcg BID PO Last administered on 06/26/18at 08:53; Admin Dose 24 MCG; Start 06/26/18 at 09:00 Bisacodyl (Dulcolax) 10 mg DAILY PRN PO CONSTIPATION; Start 06/26/18 at 07:30 DES DUNAWAY MD Jun 26, 2018 11:34
[2018-06-26 16:02] VITALS: BP 135/74; PULSE 106; RESP 20
--- NOTE | 2018-06-26 16:20 | CONS ---
Date/Time of Note Date/Time of Note DATE: 06/26/18 TIME: 16:18 Assessment/Plan Assessment/Plan Hospital Course IMP: 1.CHF-diastolic acute on chronic. Reasonable volume status. laying flat EF 55% by echo this admit 2.HTN-currently borderline hypotension 3.Breast CA-metastatic to bones 4.anemia 5.Hyponatremia-improved 6.Compression fractures 7. UTI s/p course abx 8. Back pain REcc: -Continue coreg as tolerated -Continue aldactone/lasixnow po and follow volume status closely -s/p abx course, f/u cx data -ongoing oncology eval Result Diagram: 06/23/18 [id number] Consultation Date/Type/Reason Admit Date/Time Apr 25, 2018 at 14:37 Initial Consult Date 04/26/18 Type of Consult cardiology Reason for Consultation CHF Requesting Provider: RUSS JEROME MD Exam/Review of Systems Vital Signs Vitals Vital Signs Date Temp Pulse Resp B/P (MAP) Pulse Ox O2 O2 Flow FiO2 Time Delivery Rate 06/26/18 98.1 106 20 135/74 91 16:02 (94) 06/26/18 Room Air 07:56 06/25/18 2.0 01:17 Intake and Output 06/25/18 06/25/18 06/26/18 1515:00 23:00 07:00 IntakeIntake Total 400 ml 640 ml 120 ml BalanceBalance 400 ml 640 ml 120 ml Exam Review of Systems: CONSTITUTIONAL: No fevers, chills. PULMONARY: No sob CARDIOVASCULAR: No chest pain/palpitations GASTROINTESTINAL: No nausea/vomiting. GENITOURINARY: No hematuria/dysuria. MUSCULOSKELETAL: No myagias/arthalgias. PSYCHIATRIC: The patient denies depression. NEUROLOGIC: No weakness Constitutional: alert Psych: no complaints Head: normocephalic ENMT: mucosa pink and moist Neck: supple, jvd (9 cm water) Respiratory: diminished breath sounds (at bases/B) Cardiovascular: regular rate and rhythm Gastrointestinal: soft, non-tender Musculoskeletal: muscle tone (normal) Extremities: edema (none) 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: other (No focal deficits) Medications Medications Current Medications Anastrozole (Arimidex) 1 mg DAILY PO Last administered on 06/26/18at 08:54; Admin Dose 1 MG; Start 04/25/18 at 19:00 Zolpidem Tartrate (Ambien) 10 mg HS PRN PO INSOMNIA; Start 04/25/18 at 23:30 Magnesium Hydroxide (Milk Of Mag) 30 ml DAILY PRN PO CONSTIPATION Last administered on 06/25/18 21:01; Admin Dose 30 ML; Start 04/27/18 at 21:00 Acetaminophen (Tylenol Tab) 500 mg Q6H PRN PO MILD PAIN(1-3)OR ELEVATED TEMP Last administered on 06/02/18 23:59; Admin Dose 500 MG; Start 05/30/18 at 20:30 Cholecalciferol (Vitamin D) 4,000 unit DAILY PO Last administered on 06/26/18 08:53; Admin Dose 4,000 UNIT; Start 06/02/18 at 09:00 Oxycodone HCl (Oxycontin) 20 mg BID PO Last administered on 06/26/18 08:53; Admin Dose 20 MG; Start 06/03/18 at 21:00 Morphine Sulfate (morphine) 9 mg Q4H PRN PO SEVERE PAIN LEVEL 7-10 Last administered on 06/26/18 15:00; Admin Dose 9 MG; Start 06/04/18 at 10:00 Carvedilol (Coreg) 3.125 mg BID PO Last administered on 06/25/18 21:01; Admin Dose 3.125 MG; Start 06/11/18 at 13:30 Ondansetron HCl (Zofran Inj) 4 mg Q6H PRN IV NAUSEA AND/OR VOMITING Last administered on 06/25/18 23:28; Admin Dose 4 MG; Start 06/17/18 at 07:30 Enoxaparin Sodium (Lovenox) 40 mg Q24H SC Last administered on 06/25/18 17:09; Admin Dose 40 MG; Start 06/19/18 at 18:00 Enalapril Maleate (Vasotec) 2.5 mg DAILY PO Last administered on 06/20/18 10:07; Admin Dose 2.5 MG; Start 06/19/18 at 22:30; Status Hold Lorazepam (Ativan) 1 mg Q8 PRN PO ANXIETY Last administered on 06/21/18 17:52; Admin Dose 1 MG; Start 06/20/18 at 12:30 Escitalopram Oxalate (Lexapro) 10 mg DAILY PO Last administered on 06/26/18 08:53; Admin Dose 10 MG; Start 06/20/18 at 12:30 Spironolactone (Aldactone) 25 mg DAILY NGT Last administered on 06/26/18 08:53; Admin Dose 25 MG; Start 06/20/18 at 13:30 Pantoprazole (Protonix Tab) 40 mg AC BREAKFAST DINNER PO Last administered on 06/26/18 05:52; Admin Dose 40 MG; Start 06/22/18 at 07:20 Furosemide (Lasix) 20 mg DAILY PO Last administered on 06/26/18 08:52; Admin Dose 20 MG; Start 06/22/18 at 09:00 Epoetin Cr (Epogen (Oncology)) 40,000 units Sa@1700 SC Last administered on 06/22/18 17:16; Admin Dose 10,000 UNITS; Start 06/22/18 at 17:00 Polyethylene Glycol (Miralax) 17 gm DAILY PO Last administered on 06/26/18 08:53; Admin Dose 17 GM; Start 06/24/18 at 08:30 Lubiprostone (Amitiza) 24 mcg BID PO Last administered on 06/26/18 08:53; Admin Dose 24 MCG; Start 06/26/18 at 09:00 Bisacodyl (Dulcolax) 10 mg DAILY PRN PO CONSTIPATION; Start 06/26/18 at 07:30 KAMILA TERESA Jun 26, 2018 16:20
== END 2018-06-26 17:00 | DRG 981 ==
LOC: E/R 13:17 → MS1 14:37
PROVIDERS: ADMIT Family Medicine; ATTEND Family Medicine
PROC: 3E03305 Introduction of Other Antineoplastic into Peripheral Vein, Percutaneous Approach (ICD-10-PCS; 2018-05-05)
PROC: 02H633Z Insertion of Infusion Device into Right Atrium, Percutaneous Approach (ICD-10-PCS; 2018-05-29)
PROC: 0JH60WZ Insertion of Totally Implantable Vascular Access Device into Chest Subcutaneous Tissue and Fascia, Open Approach (ICD-10-PCS; principal; 2018-05-29 10:30)
DX: M84.58XA Pathological fracture in neoplastic disease, other specified site, initial encounter for fracture (principal); I50.33 Acute on chronic diastolic (congestive) heart failure; C79.51 Secondary malignant neoplasm of bone; C78.00 Secondary malignant neoplasm of unspecified lung; E87.1 Hypo-osmolality and hyponatremia; N39.0 Urinary tract infection, site not specified; T82.594A Other mechanical complication of infusion catheter, initial encounter; D61.818 Other pancytopenia; G89.3 Neoplasm related pain (acute) (chronic); E66.9 Obesity, unspecified; Z68.31 Body mass index [BMI] 31.0-31.9, adult; D63.8 Anemia in other chronic diseases classified elsewhere; F43.10 Post-traumatic stress disorder, unspecified; F41.9 Anxiety disorder, unspecified; K21.9 Gastro-esophageal reflux disease without esophagitis; E78.00 Pure hypercholesterolemia, unspecified; R00.0 Tachycardia, unspecified; M40.209 Unspecified kyphosis, site unspecified; C50.912 Malignant neoplasm of unspecified site of left female breast; M79.632 Pain in left forearm; M48.04 Spinal stenosis, thoracic region; K59.00 Constipation, unspecified; R09.02 Hypoxemia; D72.819 Decreased white blood cell count, unspecified; M79.89 Other specified soft tissue disorders; M25.351 Other instability, right hip; Z87.81 Personal history of (healed) traumatic fracture; M54.2 Cervicalgia; Z59.0 Homelessness; B96.4 Proteus (mirabilis) (morganii) as the cause of diseases classified elsewhere; B96.1 Klebsiella pneumoniae [K. pneumoniae] as the cause of diseases classified elsewhere; D70.9 Neutropenia, unspecified; R50.81 Fever presenting with conditions classified elsewhere; E88.09 Other disorders of plasma-protein metabolism, not elsewhere classified; I11.0 Hypertensive heart disease with heart failure; R16.0 Hepatomegaly, not elsewhere classified
CPT/HCPCS: 36415; 36561; 71045; 71046; 71270; 72147; 72149; 72156; 73510; 73721; 74019; 76000; 76700; 77014; 77290; 77334; 77412; 78306; 80048; 80053; 80202; 81001; 81003; 82150; 82270; 82607; 82652; 82746; 82962; 83036; 83540; 83690; 83735; 84443; 84484; 85014; 85018; 85025; 85610; 85730; 87040; 87086; 93005; 93306; 93970; 93971; 96374; 96375; 97110; 97116; 97162; 97530; A9503; J0885; J2430; C1788; J0690; J0696; J1100; J1642; J1644; J1650; J1815; J1940; J2185; J2250; J2270; J2405; J3010; J3370; J7030; J7040; J7050; J9171; Q9967

== ENCOUNTER 2018-08-22 16:29 | Inpatient (IN) | payer MEDICAID, OTHER ==
[~2018-08-22] VITALS: Ht 152.4 cm; Wt 85.0 kg
[~2018-08-22 16:29] MED LIST: AMLO-145 PO; ANAS1TAB PO; BENA5TAB33 PO; DOCU-216 PO; LORA-441 PO; OXYC20TA41 PO; POLY17PO6 PO; TYL500 PO; UDMOM PO; ZOLP5TAB PO
[2018-08-22] MEDS ORDERED: IODIXANOL LOCM 100 ML BTL ONE (17:29)
[2018-08-22] MEDS ORDERED: SOD CHLORIDE 0.9% 100 ML ONE (17:29)
[2018-08-22] MEDS ORDERED: FUROSEMIDE 40 MG INJ IV ONE (18:30)
[2018-08-22] MEDS ORDERED: LEVOFLOXACIN 750MG/D5W (PMX) 150 ML IVPB ONE (18:30)
[2018-08-22] MEDS ORDERED: ACET-141 PO (18:45)
[2018-08-22] MEDS ORDERED: ANAS1TAB PO (18:46)
[2018-08-22] MEDS ORDERED: BENA5TAB33 PO (18:48)
[2018-08-22] MEDS ORDERED: [UNRECOGNIZED DRUG - CODE] PO (18:49)
[2018-08-22] MEDS ORDERED: CARV3.1260 PO (18:50)
[2018-08-22] MEDS ORDERED: DOCU-144 PO (18:51)
[2018-08-22] MEDS ORDERED: FURO20TA3 PO (18:52)
[2018-08-22] MEDS ORDERED: ESCI10TA PO (18:53)
[2018-08-22] MEDS ORDERED: POLY17PO6 PO (18:54)
[2018-08-22] MEDS ORDERED: MAGN400O19 PO (18:54)
[2018-08-22] MEDS ORDERED: AMLO5TAB4 PO (18:55)
[2018-08-22] MEDS ORDERED: NALO12.5 PO (18:55)
[2018-08-22] MEDS ORDERED: PANT40TA4 PO (18:59)
[2018-08-22] MEDS ORDERED: OXYC20TA41 PO (18:59)
[2018-08-22] MEDS ORDERED: AMIN30LI5 PO (19:21)
[2018-08-22] MEDS ORDERED: ZOLP10TA PO (19:22)
[2018-08-22] MEDS ORDERED: ONDA4TAB13 PO (19:22)
[2018-08-22] MEDS ORDERED: ONDANSETRON 4 MG INJ IV PRN (19:30)
[2018-08-22] MEDS ORDERED: ACETAMINOPHEN 325 MG TAB PO PRN (19:30)
--- NOTE | 2018-08-22 20:41 | ERD ---
ER Documentation Chief Complaint Chief Complaint SOB X1 WEEK, CANCER PT RECIEVING CHEMO THERAPY HPI This is a 58-year-old female with a past medical history of hypertension, CHF, metastatic left-sided breast cancer who is presenting with 1-2 weeks of intermittent chills, cough, congestion, significant shortness of breath and feeling generally unwell. Her symptoms have been progressively worsening over the last 1-2 weeks. She is receiving chemotherapy today and was assessed by her oncologist, Dr. Palomino, who found her to be hypoxic and tachycardic. She recommended that the patient come to the emergency department for further assessment. The patient has chest discomfort and pain with breathing. She endorses nausea without vomiting. She does not endorse diaphoresis. She has felt lightheaded and fatigued at times. The patient has not been febrile. The patient has had no headache or vision changes. The patient does not endorse neck or back pain. The patient denies abdominal pain. The patient denies changes to bowel movements or urination. The patient has had no focal deficits. The patient has had no weakness or numbness or tingling to the face or extremities. ROS All systems reviewed and are negative except as per history of present illness. Medications Home Meds Reported Medications Ondansetron Hcl* (Zofran*) 4 Mg Tab, 4 MG PO Q6H PRN for NAUSEA AND OR VOMITING, TAB 08/22/18 Amino Acids/Protein Hydrolys (Pro-Stat Awc Liquid) 30 Ml Liquid, 15 ML PO TID 08/22/18 Pantoprazole* (Pantoprazole*) 40 Mg Tablet.dr, 40 MG PO AC BREAKFAST, TAB 08/22/18 Oxycodone Hcl* (Oxycontin*) 20 Mg Tab.er.12h, 20 MG PO Q12, TAB 08/22/18 Amlodipine Besylate* (Norvasc*) 5 Mg Tablet, 5 MG PO BID, TAB HOLD FOR SBP <110. 08/22/18 Naloxegol Oxalate (Movantik) 12.5 Mg Tablet, 12.5 MG PO BID, TAB 08/22/18 Polyethylene Glycol* (Miralax*) 17 Gm Powd.pack, 17 GM PO TID, #60 PACKET 08/22/18 Magnesium Hydroxide* (Milk Of Magnesia*) 400 Mg/5 Ml Oral.susp, 30 ML PO DAILY, ML 08/22/18 Escitalopram Oxalate* (Lexapro*) 10 Mg Tablet, 10 MG PO DAILY, #30 TAB 08/22/18 Furosemide* (Furosemide*) 20 Mg Tablet, 20 MG PO DAILY, #60 TAB HOLD FOR SBP <110. 08/22/18 Docusate Sodium* (Colace*) 100 Mg Capsule, 200 MG PO BID, #60 CAP 08/22/18 Carvedilol* (Carvedilol*) 3.125 Mg Tablet, 3.125 MG PO BID, #60 TAB HOLD FOR SBP <110 OR WA <60. GIVE WITH FOOD. 08/22/18 Lactose-Free Food (Boost High Protein) 237 Ml Liquid, 120 ML PO BID 08/22/18 Benazepril Hcl* (Benazepril Hcl*) 5 Mg Tablet, 5 MG PO BID, #60 TAB HOLD FOR SBP <110. 08/22/18 Anastrozole* (Arimidex*) 1 Mg Tablet, 1 MG PO DAILY, #30 TAB 08/22/18 Acetaminophen* (Acetaminophen*) 500 MG Extra Strength Tablet, 500 MG PO Q6H PRN for PAIN AND OR ELEVATED TEMP, TAB 08/22/18 Discontinued Reported Medications Zolpidem Tartrate* (Ambien*) 10 Mg Tablet, 10 MG PO QHS PRN for INSOMNIA, TAB 08/22/18 Discontinued Scripts Polyethylene Glycol* (Miralax*) 17 Gm Powd.pack, 17 GM PO BID for 30 Days, #60 BOTTLE Prov:RUSS MORRISSEY MD 05/30/18 Magnesium Hydroxide* (Steinberg' MOM*) 30 Ml Susp, 30 ML PO DAILY PRN for CONSTIPATION for 14 Days, #20 CAP.EC Prov:RUSS MORRISSEY MD 05/30/18 Docusate Sodium (Dok) 100 Mg Capsule, 200 MG PO BID for 30 Days, #60 CAP Prov:RUSS MORRISSEY MD 05/30/18 Oxycodone Hcl* (Oxycontin*) 20 Mg Tab.er.12h, 20 MG PO BID for 30 Days, #60 TAB Prov:RUSS MORRISSEY MD 05/30/18 Zolpidem Tartrate (Ambien Hector) 5 Mg Tablet, 10 MG PO HS PRN for INSOMNIA for 30 Days, #30 TAB Prov:RUSS MORRISSEY MD 05/30/18 Lorazepam* (Ativan*) 0.5 Mg Tablet, 0.5 MG PO TID PRN for ANXIETY for 30 Days, #30 TAB Prov:RUSS MORRISSEY MD 05/30/18 Acetaminophen* (Tylenol*) 500 Mg Tab, 500 MG PO Q6H PRN for MILD PAIN(1-3)OR ELEVATED TEMP for 30 Days, #120 TAB Prov:RUSS MORRISSEY MD 05/30/18 Benazepril Hcl* (Benazepril Hcl*) 5 Mg Tablet, 5 MG PO BID for 30 Days, #30 TAB Prov:RUSS MORRISSEY MD 05/30/18 Amlodipine Besylate* (Amlodipine Besylate*) 5 Mg Tablet, 5 MG PO BID for 30 Days, #60 TAB Prov:RUSS MORRISSEY MD 05/30/18 Anastrozole* (Arimidex*) 1 Mg Tablet, 1 MG PO DAILY for 30 Days, #30 TAB Prov:RUSS MORRISSEY MD 05/30/18 Allergies Allergies: Coded Allergies: No Known Allergy (Unverified , 08/22/18) PMhx/Soc History of Surgery: No Anesthesia Reaction: No Hx 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 Disorder: No Hx Respiratory Disorders: No Hx Cardiac Disorders: Yes (Hypertension, CHF) Hx Psychiatric Problems: No Hx Miscellaneous Medical Probl: Yes (Metastatic breast cancer, constipation, GERD) Hx Alcohol Use: No Hx Substance Use: No Hx Tobacco Use: No Smoking Status: Never smoker FmHx Family History: No diabetes Physical Exam Vitals Vital Signs Date Temp Pulse Resp B/P (MAP) Pulse Ox O2 O2 Flow FiO2 Time Delivery Rate 08/22/18 98.4 85 24 126/86 91 Room Air 2.0 19:00 (99) 08/22/18 2.0 18:41 08/22/18 Nasal 2 17:36 Cannula 08/22/18 Nasal 2.0 17:36 Cannula 08/22/18 98.4 108 24 129/89 85 16:37 (102) Physical Exam Const: No apparent distress, well-developed, well-nourished Head: Normocephalic, Atraumatic, patient is bald Eyes: Normal Conjunctiva. Extraocular movements intact. Pupils equal, round and reactive to light ENT: Normal External Ears, Nose and Mouth. Neck: Full range of motion. No meningismus. Resp: Coarse breath sounds bilaterally, decreased breath sounds at the bases bilaterally, tachypneic. No significant respiratory distress. Cardio: Regular rhythm. Tachycardic. No murmurs, rubs or gallops Abd: Soft, non tender, non distended. Normal bowel sounds Skin: No petechiae or rashes Back: No midline tenderness. No CVA tenderness Ext: No cyanosis, or edema Neur: Awake and alert, oriented 4. Cranial nerves intact. No facial droop. Normal strength, sensation and coordination. Psych: Normal Mood and Affect Result Diagram: 08/22/18 1656 08/22/18 1656 Results 24 hrs Laboratory Tests Test 08/22/18 16:56 08/22/18 17:00 08/22/18 18:06 White Blood Count 2.7 10^3/ul Red Blood Count 4.32 10^6/ul Hemoglobin 13.7 g/dl Hematocrit 42.6 % Mean Corpuscular Volume 98.6 fl Mean Corpuscular Hemoglobin 31.7 pg Mean Corpuscular 32.2 g/dl Hemoglobin Concent Red Cell Distribution Width 15.7 % Platelet Count 151 10^3/UL Mean Platelet Volume 10.0 fl Immature Granulocytes % 0.400 % Neutrophils % 55.1 % Lymphocytes % 38.5 % Monocytes % 4.9 % Eosinophils % 0.0 % Basophils % 1.1 % Nucleated Red Blood Cells % 0.0 /100WBC Immature Granulocytes # 0.010 10^3/ul Neutrophils # 1.5 10^3/ul Lymphocytes # 1.0 10^3/ul Monocytes # 0.1 10^3/ul Eosinophils # 0.0 10^3/ul Basophils # 0.0 10^3/ul Nucleated Red Blood Cells # 0.0 10^3/ul Prothrombin Time 12.9 Sec Prothrombin Time Ratio 1.0 INR International 0.96 Normalized Ratio Activated 97.9 Sec Partial Thromboplast Time Sodium Level 138 mmol/L Potassium Level 4.7 mmol/L Chloride Level 104 mmol/L Carbon Dioxide Level 25 mmol/L Anion Gap 9 Blood Urea Nitrogen 14 mg/dl Creatinine 0.53 mg/dl Est Glomerular Filtrat > 60 mL/min Rate mL/min Glucose Level 114 mg/dl Calcium Level 8.6 mg/dl Troponin I < 0.012 ng/ml B-Type Natriuretic Peptide 57 PG/ML POC Venous Lactate 0.8 mmol/L Blood Gas Specimen Source Blood arterial Arterial Blood Date Drawn 08/22/2018 6:29:40 PM Arterial Blood pH 7.343 (Temp corrected) Arterial Blood pCO2 40.7 mmhg (Temp correct) Arterial Blood pO2 70.5 mmHG (Temp corrected) Arterial Blood HCO3 21.6 mmol/L Arterial Blood Base Excess -3.8 mmol/L Arterial Blood 91.7 mmHG Oxygen Saturation Christopher Test ACCEPTAB Arterial Blood Gas Right Radial Puncture Site Arterial 0.6 % Blood Carboxyhemoglobin Arterial Blood Methemoglobin 0.3 % Blood Gas A-a O2 Differential 73.9 mmHg Oxyhemoglobin Percent 90.9 % Blood Gas Temperature 37.0 C Blood Gas Modality NASAL CANNULA FiO2 27.0 % Blood Gas Notified Whom MDA Blood Gas Notified Time 08/22/2018 6:33:01 PM Current Medications Medications Dose Sig/Diana Start Time Status Last (Trade) Ordered Route PRN Stop Time Admin Dose Reason Admin IV Flush 10 ml STK-MED 08/22/18 DC (NS 10 ml) ONCE .ROUTE 17:29 08/22/18 17:30 Sodium 100 ml @ ud STK-MED 08/22/18 DC Chloride ONCE .ROUTE 17:29 08/22/18 17:30 Iodixanol 100 ml STK-MED 08/22/18 DC (Visipaque ONCE .ROUTE 17:29 08/22/18 Locm) 17:30 Furosemide 40 mg ONCE ONCE 08/22/18 DC 08/22/18 (Lasix) IV 18:30 08/22/18 18:43 18:35 150 ml @ ONCE ONCE 08/22/18 DC 08/22/18 Levofloxacin/ 100 mls/hr IVPB 18:30 08/22/18 18:42 Dextrose 19:59 Ondansetron 4 mg ER BRIDGE 08/22/18 HCl (Zofran PRN IV 19:30 08/23/18 Inj) NAUSEA/VOMITI 19:29 NG 650 mg ER BRIDGE 08/22/18 Acetaminophen PRN PO 19:30 08/23/18 (Tylenol .MILD PAIN 19:29 Tab) 1-3 OR TEMP Procedures/MDM MDM The patient's presentation warrants further investigation. Previous medical records, if available, were reviewed. LABS The patient's laboratory testing was obtained and reviewed. No emergent treat ment was required unless described below. CBC: Leukopenia without neutropenia likely related to her active chemotherapy regimen. No E/o severe anemia or thrombocytopenia Chemistry: No E/o severe acidosis or alkalosis or renal failure or diabetic ketoacidosis Coags: Elevated PTT without evidence of emergent bleeding Lactate: No E/o severe sepsis Troponin: No E/o acute ischemia BNP: No E/o heart failure ABG: Hypoxemia EKG EKG read by me: Rate/Rhythm: Regular rate and rhythm at a rate of 85 bpm Intervals: Normal QRS and QTc. Prolonged WA interval indicating a first- degree AV block Pickerel: Left axis deviation Impression: Nonspecific repolarization changes without evidence of acute ischemia or arrhythmia IMAGING Imaging and Radiology interpretation reviewed. CXR FINDINGS: The patient is rotated. The patient's chin projects over the lung apices. Lung volumes are small. Right-sided port catheter remains in place. Heart remains enlarged. Mediastinal silhouette is stable. There is no visible pneumothorax or left pleural effusion. There is a small right pleural effusion. There is mild pulmonary vascular congestion. There is bibasilar atelectasis, left greater than right. IMPRESSION: 1. Poor inspiration with bibasilar atelectasis, left greater than right. Superimposed infection cannot be excluded. 2. Cardiomegaly and mild pulmonary vascular congestion. 3. Small right pleural effusion. Electronically viewed and signed by Physician Jose on 08/22/2018 17:31 TREATMENT/DISPOSITION CTA Chest FINDINGS: The pulmonary arteries are normal with no filling defect or lack of enhancement to suggest pulmonary artery embolism. There is air space disease bilaterally in the lung bases posteriorly consistent with atelectasis related to the bilateral pleural effusions. Mild ground-glass opacification is present in the upper lung zones. The lungs are otherwise clear. There is no pulmonary nodule or mass lesion. There is no pneumothorax. There is no mediastinal or hilar lymphadenopathy or mass. There is a right internal jugular vein implanted port central venous catheter with the tip in the lower right atrium. There are moderate bilateral pleural effusions. There is a small pericardial effusion. The thoracic aorta is normal with no aneurysm or dissection. The heart is mildly enlarged. Images through the upper abdomen demonstrate normal visualized portions of the liver, spleen, and adrenals. There is extensive diffuse osseous metastatic disease with sclerosis and lysis throughout the entire visualized spine, ribs, clavicles, sternum, humeri, and scapulae. IMPRESSION: 1. Normal CT pulmonary angiogram with no evidence of pulmonary artery embolism. 2. Moderate bilateral pleural effusions with associated atelectasis at the lung bases. 3. Mild ground-glass opacification in the upper lung zones. 4. Central venous catheter in satisfactory position. 5. Small pericardial effusion. 6. Mild cardiomegaly. 7. Extensive diffuse osseous metastatic disease. Electronically viewed and signed by .Damon Mora MD, on 08/22/2018 18:11 TREATMENT/DISPOSITION The patient presents with symptoms concerning for a questionable pneumonia. There are groundglass opacities in the upper lung zones bilaterally, which could represent an infectious etiology. The patient was given a dose of Levaquin in the emergency department. While the patient does have an emergent cardiopulmonary process, which may include an infectious etiology, I have low suspicion for sepsis. The patient is leukopenic but not neutropenic. She is afebrile and has a normal lactic acid. I do not feel the patient requires a full septic workup. I do not feel the patient would benefit from a sepsis bolus, especially in the setting of volume overload. The patient does have a history of CHF and is overloaded clinically. She was actually given a dose of Lasix in the emergency department for diuresis. The patient's blood pressure remained stable throughout my assessment. The patient also has significant diffuse metastatic disease with sequelae from cancer including moderate bilateral pleural effusions, which is likely contributing to her shortness of breath as well. She benefited from 2 L nasal cannula with improvement of her hypoxia. Given the patient's tachycardia and hypoxia, she was assessed for pulmonary embolism with a CTA. There is no evidence of pulmonary embolism on the study. I discussed the case with the patient's oncologist, Dr. Palomino, extensively. She requested that lower extremities Dopplers be completed. They were ordered. The results will be assessed by the admitting team. CRITICAL CARE NOTE Time: 36 minutes excluding all billable procedures. Treatments/Evaluations: The patient was at risk of hemodynamic compromise. Timing of critical care involved close serial monitoring, evaluation of the patient's medical record including previous records & current laboratory/imaging studies, potential interventions for prevention of hemodynamic/ cardiopulmonary/ neurologic compromise, maintaining tight fluid balance, and any discussions with the family and/or consultants regarding the patient's status and prognosis. ADMISSION At this time, I feel that the patient requires admission for further evaluation and management. The patient will be admitted to Dr. Morrissey in accordance with the patient's insurance. The patient was accepted to telemetry at 7:05 PM on August 22, 2018. Dr. Palomino will assess the patient in the hospital. Disclaimer: Inadvertent spelling and grammatical errors are likely due to EHR/dictation software use and do not reflect on the overall quality of patient care. Note that the electronic time recorded on this note does not necessarily reflect the actual time of the patient encounter. Departure Diagnosis: Primary Impression: Pneumonia Pneumonia type: due to unspecified organism Laterality: bilateral Lung location: unspecified part of lung Qualified Codes: J18.9 - Pneumonia, unspecified organism Additional Impressions: Pleural effusion Metastatic breast cancer Hypoxia Tachycardia Leukopenia Leukopenia type: unspecified Qualified Codes: D72.819 - Decreased white b lood cell count, unspecified Elevated partial thromboplastin time (PTT) Condition: Serious HORTENSIA MADERA MD Aug 22, 2018 20:39
[2018-08-22] MEDS: METOPROLOL 50 MG TAB PO SCH (23:00)
[2018-08-22] MEDS: BENAZEPRIL 5 MG TAB PO SCH (23:00)
[2018-08-22] MEDS: AMLODIPINE 5 MG TAB PO SCH (23:00)
[2018-08-22] MEDS ORDERED: ACETAMINOPHEN 500 MG TAB PO PRN (23:00)
[2018-08-23] VITALS (10 sets, daily range): BP systolic 95–133; BP diastolic 55–79; PULSE 71–107; RESP 18–20; Ht 152.4 cm; Wt 85.0 kg
[2018-08-23] MEDS: BENAZEPRIL 5 MG TAB PO SCH ×3 (00:16→21:00)
[2018-08-23] MEDS: AMLODIPINE 5 MG TAB PO SCH ×3 (00:16→21:00)
[2018-08-23] MEDS: FUROSEMIDE 40 MG INJ IV SCH ×3 (00:16→18:29)
[2018-08-23] MEDS: DOCUSATE SODIUM 100 MG CAP PO SCH ×3 (00:16→21:00)
[2018-08-23] MEDS: METOPROLOL 50 MG TAB PO SCH ×3 (00:17→21:00)
[2018-08-23] MEDS ORDERED: oxyCODONE (CR) 20 MG TAB [oxyCONTIN] PO SCH (01:20)
[2018-08-23] MEDS: PANTOPRAZOLE (EC) 40 MG TAB PO SCH (06:40)
[2018-08-23] MEDS: ESCITALOPRAM 10 MG TAB PO SCH (09:00)
[2018-08-23] MEDS ORDERED: FUROSEMIDE 20 MG TAB PO SCH (09:00)
[2018-08-23] MEDS: MAGNESIUM HYDROXIDE 30ML CUP PO SCH (09:00)
[2018-08-23] MEDS: POLYETHYLENE GLYCOL 17 GM PACKET PO SCH ×3 (09:00→21:31)
[2018-08-23] MEDS: oxyCODONE (CR) 20 MG TAB [oxyCONTIN] PO SCH ×2 (09:37→21:31)
[2018-08-23] MEDS: POTASSIUM CHLORIDE (SR) 20 MEQ TAB PO SCH (09:37)
[2018-08-23] MEDS: ANASTROZOLE 1 MG TAB PO SCH (10:33)
[2018-08-23] MEDS ORDERED: LIDOCAINE 1% (MPF) 5 ML VIAL ONE (13:42)
--- NOTE | 2018-08-23 20:06 | HP ---
Date/Time of Note Date/Time of Note DATE: 08/23/18 TIME: 20:05 Assessment/Plan VTE Prophylaxis Risk score (from Nsg)>0 risk: 2 SCD applied (from Nsg): No SCD contraindicated: low risk/ambulating Pharmacological prophylaxis: LMWH Lines/Catheters IV Catheter Type (from Nrsg): DEVONTE CATH Central line still needed: No Urinary Cath still in place: No Reason Cath still needed: urinary retention Assessment/Plan Assessment/Plan 1. Cancer of the left breast. Exact type at this time unknown.MULTIPLE BONY METS, PULMONARY METS 2. Severe pain in the interscapular and lumbar sacral area most probably metastatic lesion possible femoral fracture. pathologic fracture of T9 with 60% of loss of height. Neurosurgical f/u. 3. Bilateral hydrothorax planned to perform a thoracentesis. 4. Weight loss 60 pounds during the last 2 years by diet.Obesity. 5. PMS. 6. Myopia. 7. Anemia chronic disease with a drop of her hematocrit to 27 and regaining to 30 without any measures. Latest results 28. Protonix was added. Today hematocrit is 26. Will recheck tomorrow 8. Anxiety disorder. Claustrophobia. Increase Ativan to 1 mg every 8 as needed at Lexapro 10 mg daily. 9. Posttraumatic stress disorder. 10. Pain in the left forearm with a history of fracture of ulna and radius. 11. Tachycardia 12. Hypoxemia at night marginal improved after 2 L of nasal cannula oxygen. 13. Deconditioning 14. 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 15. Pain syndrome. Today the most painful zone is in the right hip area. X- ray did not show any fractures. 16. Hyponatremia- resolved 17. Leucopenia-improved. 18. Neutropenia with occasional fever and chills. Hold discharge, until she is stable. 19. Hypoalbuminemia 2.4 now 2.7 20.Right sided cp after catheter insertion and correction less d iscomfort. 21. Decreased edema both lower extremities with hypotension-improving 22.Swollen left forearm 23.Darker thean usual left breast 24.Diffuse edema of the body On abdominal us:. Limited study as described above. 2. Diffusely heterogeneous liver consistent with multiple masses. 3. Gallstones and sludge in the gallbladder. No evidence of cholecystitis. 4. Proximal abdominal aorta not visualized. 5. Spleen not visualized. 6. Otherwise unremarkable abdomen and retroperitoneum ultrasound. On CZR:1. No significant interval change. 2. Cardiomegaly. 3. Bibasilar opacities may represent atelectasis or infiltrate. 4. Stable left pleural effusion. Result Diagram: 08/22/18 1656 08/22/18 1656 Results 24hrs Laboratory Tests Test 08/22/18 23:34 08/22/18 23:35 08/23/18 13:50 Iron Level 94 Total Iron Binding Capacity 277 Percent Iron Saturation 34 Lactic Acid Level 1.1 Magnesium Level 1.7 Creatine Kinase 21 L Creatine Kinase Index 1.2 Creatinine Kinase MB (Mass) 0.25 Troponin I < 0.012 Lipase 30 Thyroid Stimulating Hormone (TSH) 0.368 L Body Fluid Type PLEURAL Body Fluid Volume 850.0 Body Fluid Color YELLOW Body Fluid Appearance CLOUDY Body Fluid WBC 381 Body Fluid RBC (Auto) 1000 Body Fluid Polynuclear WBCs (%) 3.2 Body Fluid Mononuclear Cells % Auto 96.8 HPI/ROS Admit Date/Time Admit Date/Time Aug 22, 2018 at 20:16 Hx of Present Illness Severe weakness getting tired very easily. Dry cough. Edema all over the body. ROS Subjective hx not possible: pt critical Constitutional: chills, diaphoresis, disoriented, fatigue, poor po, weight change; No no complaints, No improved, No febrile, No other Eyes: No no complaints, No pain, No discharge, No redness, No visual change, No other ENT: No no complaints, No bleeding, No pain, No congestion, No discharge, No dysphagia, No sore throat, No other Respiratory: cough, pleuritic pain, shortness of breath; No no complaints, No pain, No sputum, No wheezing, No other Cardiovascular: chest pain, lightheadedness, orthopenea; No no complaints, No edema, No palpitations, No paroxysmal nocturnal dyspnea, No other Gastrointestinal: constipation, decreased appetite, nausea, passing stool; No no complaints, No pain, No blood, No diarrhea, No flatus, No vomiting, No other Genitourinary: dysuria, flank pain; No no complaints, No bleeding, No discharge, No hematuria, No other Musculoskeletal: back pain, bone/joint pain, neck pain; No no complaints, No restricted range of motion, No swelling, No other Skin: bruising, erythema, pruritis Neurologic: confusion, dizziness, headache; No no complaints, No focal-weakness, No syncope, No seizure, No other Endocrine: polydypsia, dry skin Lymphatic: No no complaints, No adenopathy, No tender nodes, No lymphadema, No other Psychological: anxiety, confusion; No no complaints, No nl mood/affect, No depression, No suicidal, No other Immunologic: No no complaints, No immunodeficiency, No pruritis, No rhinitis, No urticaria, No other PMH/Family/Social Past Medical History Medical History: angina, congestive heart failure, coronary artery disease, GERD, high cholesterol, hypertension, renal disease, urinary tract infection Medications Current Medications Acetaminophen (Tylenol Tab) 500 mg Q6H PRN PO MILD PAIN(1-3)OR ELEVATED TEMP; Start 08/22/18 at 23:00 Amlodipine Besylate (Norvasc) 5 mg BID PO Last administered on 08/23/18at 09:37; Admin Dose 5 MG; Start 08/22/18 at 23:00 Anastrozole (Arimidex) 1 mg DAILY PO Last administered on 08/23/18at 10:33; Admin Dose 1 MG; Start 08/23/18 at 09:00 Benazepril HCl (Lotensin) 5 mg BID PO Last administered on 08/23/18at 09:38; Admin Dose 5 MG; Start 08/22/18 at 23:00 Carvedilol (Coreg) 3.125 mg BID PO ; Start 08/22/18 at 23:00; Status UNV Docusate Sodium (Colace) 200 mg BID PO Last administered on 08/23/18at 00:16; Admin Dose 200 MG; Start 08/22/18 at 23:00 Escitalopram Oxalate (Lexapro) 10 mg DAILY PO ; Start 08/23/18 at 09:00 Furosemide (Lasix) 20 mg DAILY PO ; Start 08/23/18 at 09:00; Status UNV Magnesium Hydroxide (Milk Of Mag) 30 ml DAILY PO ; Start 08/23/18 at 09:00 Ondansetron HCl (Zofran Tab) 4 mg Q6H PRN PO NAUSEA AND/OR VOMITING; Start 08/22/18 at 23:00 Pantoprazole (Protonix Tab) 40 mg AC BREAKFAST PO Last administered on 08/23/18at 06:40; Admin Dose 40 MG; Start 08/23/18 at 07:00 Polyethylene Glycol (Miralax) 17 gm TID PO ; Start 08/23/18 at 09:00 Furosemide (Lasix) 40 mg BID DIURETICS IV Last administered on 08/23/18at 18:29; Admin Dose 40 MG; Start 08/22/18 at 23:00 Potassium Chloride (Klor-Con 20) 20 meq DAILY PO Last administered on 08/23/18at 09:37; Admin Dose 20 MEQ; Start 08/23/18 at 09:00 Metoprolol Tartrate (Lopressor) 50 mg BID PO Last administered on 08/23/18at 09:39; Admin Dose 50 MG; Start 08/22/18 at 23:00 Oxycodone HCl (Oxycontin) 20 mg Q12 PO Last administered on 08/23/18at 09:37; Admin Dose 20 MG; Start 08/23/18 at 09:00 Influenza Virus Vaccine Quadrival (Fluzone) 0.5 ml ONCE ONCE IM* ; Start 08/24/18 at 10:00; Stop 08/24/18 at 10:01 Coded Allergies: No Known Allergy (Unverified , 08/22/18) Past Surgical History Past Surgical Hx: no surgical history Family History Significant Family History: no pertinent family hx Social History Alcohol Use: none Smoking Status: Never smoker Drug Use: none Exam/Review of Systems Vital Signs Vitals Vital Signs Date Temp Pulse Resp B/P (MAP) Pulse Ox O2 O2 Flow FiO2 Time Delivery Rate 08/23/18 Nasal 19:00 Cannula 08/23/18 78 16:21 08/23/18 98.1 18 102/62 90 15:26 (75) 08/23/18 2.0 09:40 Exam Constitutional: alert, oriented, well developed, distress, frail; No non-verbal, No other Psych: anxiety, depression; No no complaints, No nl mood/affect, No confusion, No suicidal, No other Head: normocephalic, atraumatic, other (skin tag of the occipital area with no redness .); No lacerations, No hematomas Eyes: EOMI, nl lids, PERRL ENMT: No nl external ears & nose, No nl lips & teeth, No nl nasal mucosa & septum, No mucosa pink and moist, No intubated, No tympanic membranes, No other Neck: non-tender, thyromegaly, nuchal rigidity; No supple, No jvd, No bruits, No masses, No other Respiratory: normal air movement, congested cough, diminished breath sounds, intercostal retraction, tactile fremitus; No clear to auscultation, No crackles/rales, No labored breathing, No respirations, No wheezing, No other Cardiovascular: nl pulses, bruits, jugular venous distention (JVD), murmurs/extra sounds, systolic murmur; No regular rate and rhythm, No diastolic murmur, No edema, No gallop, No irregular rhythm, No rub, No S3, No S4, No other Gastrointestinal: soft, nl liver, spleen, bowel sounds, distended; No non-tender, No ascites, No firm, No hepatomegaly, No mass, No rebound or guarding, No splenomegaly, No surgical scars, No tender, No other Genitourinary - Female: No nl adnexae, No nl external genitalia, No CMT, No CVA tenderness, No uterus, No other Musculoskeletal: nl gait and stance, joint tenderness; No nl extremities to inspection, No muscle tone, No muscle weakness, No range of motion, No spine non-tender, No swelling, No other Extremities: edema (of left upper extremity and generalised bodey edema.), tenderness, other (swollen forearm of the left upper extremity.); No normal pulses, No calf tenderness, No cyanosis, No clubbing, No pitting pedal edema, No palpable cord 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: 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
[2018-08-23] MEDS ORDERED: VANCOMYCIN HCL 1.5 GM in SOD CHLORIDE 0.9% 250 ML IVPB ONE (21:00)
[2018-08-23] MEDS ORDERED: VANCOMYCIN 1 GM (PMX) 250 ML IVPB SCH (21:00)
[2018-08-23] MEDS: MAGNESIUM SULFATE 2 GM/50 ML 50 ML IVPB SCH (21:31)
--- NOTE | 2018-08-23 23:33 | CONS ---
Assessment/Plan Assessment/Plan Hospital Course (Demo Recall) METASTATIC BREAST CANCER WITH PRIMARY ADENOCARCINOMA IN the left breast. MULTIPLE BONY METS, PULMONARY METS, LIVER METS CHEMO ON HOLD PT HAS A VERY GOOD RESPONSE TO CHEMO AND AI CONT AI FOR NOW Leucopenia- post chemo improved. DC NEUPOGEN Neutropenia with occasional fever and chills. agree with Holding discharge, until she is stable. Severe pain in the interscapular and lumbar sacral area most probably metastatic lesion possible femoral fracture. pathologic fracture of T9 with 60% of loss of height. Neurosurgical f-p Obesity. Weight loss 60 pounds during the last 2 years by diet PMS. Myopia. Anemia chronic disease with a drop of her hematocrit to 27 and regaining to 30 without any measures. Latest results 28. Protonix was added. Today hematocrit is 26. Will recheck tomorrow Anxiety disorder. Claustrophobia. Increase Ativan to 1 mg every 8 as needed at Lexapro 10 mg daily. Posttraumatic stress disorder. Pain in the left forearm with a history of fracture of ulna and radius. Tachycardia Hypoxemia at night marginal improved after 2 L of nasal cannula oxygen. Deconditioning Pain syndrome. Today the most painful zone is in the right hip area. X-ray did not show any fractures. Hyponatremia- resolved Hypoalbuminemia 2.4 now 2.7 Right sided cp after catheter insertion and correction less discomfort. Decreased edema both lower extremities with hypotension-improving Swelling of the left forearm-persist. PLEURAL EFFUSIONS S/p R thoracentesis Consultation Date/Type/Reason Admit Date/Time Aug 22, 2018 at 20:16 Initial Consult Date 08/23/18 Type of Consult [facility] Reason for Consultation breast cancer Requesting Provider: RUSS JEROME MD Date/Time of Note DATE: 08/23/18 TIME: 23:33 24 HR Interval Summary Free Text/Dictation ALL NOTED D/W DR JEROME Exam/Review of Systems Exam Vitals Vital Signs Date Temp Pulse Resp B/P (MAP) Pulse Ox O2 O2 Flow FiO2 Time Delivery Rate 08/23/18 98.3 71 20 95/55 (68) 92 20:30 08/23/18 Nasal 19:00 Cannula 08/23/18 2.0 09:40 Exam Constitutional: alert, oriented, well developed, distress, frail, obese; No non-verbal, No other Psych: anxiety, depression; No no complaints, No nl mood/affect, No confusion, No suicidal, No other Head: normocephalic, atraumatic; No lacerations, No hematomas, No other Eyes: EOMI, nl lids, PERRL; No nl conjunctiva, No nl sclera, No icteric, No fundi, disc, No other ENMT: No nl external ears & nose, No nl lips & teeth, No nl nasal mucosa & septum, No mucosa pink and moist, No intubated, No tympanic membranes, No other Neck: thyromegaly, nuchal rigidity; No supple, No non-tender, No jvd, No bruits, No masses, No other Respiratory: clear to auscultation, congested cough, crackles/rales, diminished breath sounds, wheezing; No normal air movement, No intercostal retraction, No labored breathing, No respirations, No tactile fremitus, No other Cardiovascular: nl pulses, bruits, irregular rhythm, jugular venous distention (JVD), systolic murmur; No regular rate and rhythm, No diastolic murmur, No edema, No gallop, No m urmurs/extra sounds, No rub, No S3, No S4, No other Gastrointestinal: soft, nl liver, spleen, bowel sounds; No non-tender, No ascites, No distended, No firm, No hepatomegaly, No mass, No rebound or guarding, No splenomegaly, No surgical scars, No tender, No other Musculoskeletal: joint tenderness, muscle tone, muscle weakness; No nl extremities to inspection, No nl gait and stance, No range of motion, No spine non-tender, No swelling, No other Extremities: edema (Left upper extremity anterior part mainly there is a depression in the skin and elbow area with the size of about 4-5 cm deep in the site of pressure wire pitting edema had disappeared.), pitting pedal edema; No normal pulses, No calf tenderness, No cyanosis, No clubbing, No palpable cord, No tenderness, No other 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: 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, confused, numbness; No nl mental status, No nl speech, No nl strength, No DTR's symmetric, No focal weakness, No lethargic, No reflexes, No unresponsive, No other Skin: nl turgor, other (The color of the left breast is more brown dark no masses palpable no discharge); No rash or lesions, No diaphoresis, No ecchymosis, No laceration, No puncture Lymph: nl lymph nodes; No enlarged, No nontender, No other Results Result Diagram: 08/22/18 1656 08/22/18 1656 Results 24hrs Laboratory Tests Test 08/22/18 23:34 08/22/18 23:35 08/23/18 13:50 Iron Level 94 Total Iron Binding Capacity 277 Percent Iron Saturation 34 Lactic Acid Level 1.1 Magnesium Level 1.7 Creatine Kinase 21 L Creatine Kinase Index 1.2 Creatinine Kinase MB (Mass) 0.25 Troponin I < 0.012 Lipase 30 Thyroid Stimulating Hormone (TSH) 0.368 L Body Fluid Type PLEURAL Body Fluid Volume 850.0 Body Fluid Color YELLOW Body Fluid Appearance CLOUDY Body Fluid WBC 381 Body Fluid RBC (Auto) 1000 Body Fluid Polynuclear WBCs (%) 3.2 Body Fluid Mononuclear Cells % Auto 96.8 Medications Medication Current Medications Acetaminophen (Tylenol Tab) 500 mg Q6H PRN PO MILD PAIN(1-3)OR ELEVATED TEMP; Start 08/22/18 at 23:00 Amlodipine Besylate (Norvasc) 5 mg BID PO Last administered on 08/23/18at 09:37; Admin Dose 5 MG; Start 08/22/18 at 23:00 Anastrozole (Arimidex) 1 mg DAILY PO Last administered on 08/23/18at 10:33; Admin Dose 1 MG; Start 08/23/18 at 09:00 Benazepril HCl (Lotensin) 5 mg BID PO Last administered on 08/23/18at 09:38; Admin Dose 5 MG; Start 08/22/18 at 23:00 Carvedilol (Coreg) 3.125 mg BID PO ; Start 08/22/18 at 23:00; Status UNV Docusate Sodium (Colace) 200 mg BID PO Last administered on 08/23/18at 00:16; Admin Dose 200 MG; Start 08/22/18 at 23:00 Escitalopram Oxalate (Lexapro) 10 mg DAILY PO ; Start 08/23/18 at 09:00 Furosemide (Lasix) 20 mg DAILY PO ; Start 08/23/18 at 09:00; Status UNV Magnesium Hydroxide (Milk Of Mag) 30 ml DAILY PO ; Start 08/23/18 at 09:00 Ondansetron HCl (Zofran Tab) 4 mg Q6H PRN PO NAUSEA AND/OR VOMITING; Start 08/22/18 at 23:00 Pantoprazole (Protonix Tab) 40 mg AC BREAKFAST PO Last administered on 08/23/18 06:40; Admin Dose 40 MG; Start 08/23/18 at 07:00 Polyethylene Glycol (Miralax) 17 gm TID PO Last administered on 08/23/18 21:31; Admin Dose 17 GM; Start 08/23/18 at 09:00 Furosemide (Lasix) 40 mg BID DIURETICS IV Last administered on 08/23/18 18:29; Admin Dose 40 MG; Start 08/22/18 at 23:00 Potassium Chloride (Klor-Con 20) 20 meq DAILY PO Last administered on 08/23/18 09:37; Admin Dose 20 MEQ; Start 08/23/18 at 09:00 Metoprolol Tartrate (Lopressor) 50 mg BID PO Last administered on 08/23/18 09:39; Admin Dose 50 MG; Start 08/22/18 at 23:00 Oxycodone HCl (Oxycontin) 20 mg Q12 PO Last administered on 08/23/18 21:31; Admin Dose 20 MG; Start 08/23/18 at 09:00 Influenza Virus Vaccine Quadrival (Fluzone) 0.5 ml ONCE ONCE IM* ; Start 08/24/18 at 10:00; Stop 08/24/18 at 10:01 Vancomycin HCl 1.5 gm/Sodium Chloride 250 ml @ 83.333 mls/ hr ONCE ONCE IVPB ; Start 08/23/18 at 21:00; Stop 08/23/18 at 23:59 Vancomycin/Sodium Chloride 250 ml @ 125 mls/hr Q8H IVPB ; Start 08/24/18 at 05:00 Magnesium Sulfate 50 ml @ 25 mls/hr DAILY IVPB Last administered on 08/23/18 21:31; Admin Dose 25 MLS/HR; Start 08/23/18 at 20:30; Stop 08/26/18 at 09:00 DES DUNAWAY MD Aug 23, 2018 23:33
[2018-08-24] VITALS (12 sets, daily range): BP systolic 94–106; BP diastolic 51–78; PULSE 71–90; RESP 17–20
[2018-08-24] MEDS: FUROSEMIDE 40 MG INJ IV SCH ×2 (05:35→17:19)
[2018-08-24] MEDS: VANCOMYCIN 750 MG (PMX) 250 ML IVPB SCH ×3 (05:35→21:20)
[2018-08-24] MEDS: PANTOPRAZOLE (EC) 40 MG TAB PO SCH (07:47)
[2018-08-24] MEDS: MAGNESIUM HYDROXIDE 30ML CUP PO SCH (09:40)
[2018-08-24] MEDS: POLYETHYLENE GLYCOL 17 GM PACKET PO SCH ×3 (09:40→21:20)
[2018-08-24] MEDS: ESCITALOPRAM 10 MG TAB PO SCH (09:41)
[2018-08-24] MEDS: POTASSIUM CHLORIDE (SR) 20 MEQ TAB PO SCH (09:41)
[2018-08-24] MEDS: DOCUSATE SODIUM 100 MG CAP PO SCH ×2 (09:41→21:20)
[2018-08-24] MEDS: METOPROLOL 50 MG TAB PO SCH ×2 (09:41→21:00)
[2018-08-24] MEDS: oxyCODONE (CR) 20 MG TAB [oxyCONTIN] PO SCH ×2 (09:44→21:21)
[2018-08-24] MEDS: ANASTROZOLE 1 MG TAB PO SCH (09:46)
[2018-08-24] MEDS: MAGNESIUM SULFATE 2 GM/50 ML 50 ML IVPB SCH (10:45)
[2018-08-24] MEDS: AMLODIPINE 5 MG TAB PO SCH ×2 (12:20→21:00)
[2018-08-24] MEDS: BENAZEPRIL 5 MG TAB PO SCH ×2 (12:30→21:00)
--- NOTE | 2018-08-24 20:48 | CONS ---
Assessment/Plan Assessment/Plan Hospital Course (Demo Recall) METASTATIC BREAST CANCER WITH PRIMARY ADENOCARCINOMA IN the left breast. MULTIPLE BONY METS, PULMONARY METS, LIVER METS CHEMO ON HOLD PT HAS A VERY GOOD RESPONSE TO CHEMO AND AI CONT AI FOR NOW Leucopenia- post chemo improved. DC NEUPOGEN Neutropenia with occasional fever and chills. agree with Holding discharge, until she is stable. Severe pain in the interscapular and lumbar sacral area most probably metastatic lesion possible femoral fracture. pathologic fracture of T9 with 60% of loss of height. Neurosurgical f-p Obesity. Weight loss 60 pounds during the last 2 years by diet PMS. Myopia. Anemia chronic disease with a drop of her hematocrit to 27 and regaining to 30 without any measures. Latest results 28. Protonix was added. Today hematocrit is 26. Will recheck tomorrow Anxiety disorder. Claustrophobia. Increase Ativan to 1 mg every 8 as needed at Lexapro 10 mg daily. Posttraumatic stress disorder. Pain in the left forearm with a history of fracture of ulna and radius. Tachycardia Hypoxemia at night marginal improved after 2 L of nasal cannula oxygen. Deconditioning Pain syndrome. Today the most painful zone is in the right hip area. X-ray did not show any fractures. Hyponatremia- resolved Hypoalbuminemia 2.4 now 2.7 Right sided cp after catheter insertion and correction less discomfort. Decreased edema both lower extremities with hypotension-improving Swelling of the left forearm-persist. PLEURAL EFFUSIONS S/p R thoracentesis with 900cc removed Consultation Date/Type/Reason Admit Date/Time Aug 22, 2018 at 20:16 Initial Consult Date 08/23/[address] [facility] Requesting Provider: RUSS JEROME MD Date/Time of Note DATE: 08/24/18 TIME: 20:48 24 HR Interval Summary Free Text/Dictation all noted count down afebrile Exam/Review of Systems Exam Vitals Vital Signs Date Temp Pulse Resp B/P (MAP) Pulse Ox O2 O2 Flow FiO2 Time Delivery Rate 08/24/18 98.6 82 20 94/51 (65) 92 20:10 08/24/18 Nasal 19:49 Cannula 08/24/18 2.0 09:30 Intake and Output 08/23/18 08/23/18 08/24/18 1515:00 23:00 07:00 IntakeIntake Total 600 ml BalanceBalance 600 ml Exam Constitutional: alert, oriented, well developed, distress, frail, obese; No non-verbal, No other Psych: anxiety, depression; No no complaints, No nl mood/affect, No confusion, No suicidal, No other Head: normocephalic, atraumatic; No lacerations, No hematomas, No other Eyes: EOMI, nl lids, PERRL; No nl conjunctiva, No nl sclera, No icteric, No fundi, disc, No other ENMT: No nl external ears & nose, No nl lips & teeth, No nl nasal mucosa & septum, No mucosa pink and moist, No intubated, No tympanic membranes, No other Neck: thyromegaly, nuchal rigidity; No supple, No non-tender, No jvd, No bruits, No masses, No other Respiratory: clear to auscultation, congested cough, crackles/rales, diminished breath sounds, wheezing; No normal air movement, No intercostal retraction, No labored breathing, No respirations, No tactile fremitus, No other Cardiovascular: nl pulses, bruits, irregular rhythm, jugular venous distention (JVD), systolic murmur; No regular rate and rhythm, No diastolic murmur, No edema, No gallop, No murmurs/extra sounds, No rub, No S3, No S4, No other Gastrointestinal: soft, nl liver, spleen, bowel sounds; No non-tender, No ascites, No distended, No firm, No hepatomegaly, No mass, No rebound or guarding, No splenomegaly, No surgical scars, No tender, No other Musculoskeletal: joint tenderness, muscle tone, muscle weakness; No nl extremities to inspection, No nl gait and stance, No range of motion, No spine non-tender, No swelling, No other Extremities: edema (Left upper extremity anterior part mainly there is a de pression in the skin and elbow area with the size of about 4-5 cm deep in the site of pressure wire pitting edema had disappeared.), pitting pedal edema; No normal pulses, No calf tenderness, No cyanosis, No clubbing, No palpable cord, No tenderness, No other 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: FILLING HAULER WEAVING 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, confused, numbness; No nl mental status, No nl speech, No nl strength, No DTR's symmetric, No focal weakness, No lethargic, No reflexes, No unresponsive, No other Skin: nl turgor, other (The color of the left breast is more brown dark no masses palpable no discharge); No rash or lesions, No diaphoresis, No ecchymosis, No laceration, No puncture Lymph: nl lymph nodes; No enlarged, No nontender, No other Results Result Diagram: 08/24/18 0802 08/24/18 0802 Results 24hrs Laboratory Tests Test 08/24/18 08:02 08/24/18 19:27 White Blood Count 1.9 #L Red Blood Count 3.87 L Hemoglobin 12.7 Hematocrit 38.5 Mean Corpuscular Volume 99.5 Mean Corpuscular Hemoglobin 32.8 Mean Corpuscular Hemoglobin Concent 33.0 Red Cell Distribution Width 15.7 H Platelet Count 137 L Mean Platelet Volume 10.0 Immature Granulocytes % 0.500 H Neutrophils % 30.9 L Lymphocytes % 55.2 H Monocytes % 11.9 H Eosinophils % 0.0 Basophils % 1.5 Nucleated Red Blood Cells % 0.0 Immature Granulocytes # 0.010 Neutrophils # 0.6 L Lymphocytes # 1.1 Monocytes # 0.2 L Eosinophils # 0.0 Basophils # 0.0 Nucleated Red Blood Cells # 0.0 Sodium Level 138 Potassium Level 3.8 Chloride Level 100 Carbon Dioxide Level 32 H Anion Gap 6 Blood Urea Nitrogen 19 Creatinine 0.65 Est Glomerular Filtrat Rate mL/min > 60 Glucose Level 95 Calcium Level 8.1 L Total Bilirubin 0.7 Direct Bilirubin 0.00 Indirect Bilirubin 0.7 Aspartate Amino Transf (AST/SGOT) 43 Alanine Aminotransferase (ALT/SGPT) 31 Alkaline Phosphatase 64 Total Protein 5.9 L Albumin 3.0 L Globulin 2.90 Albumin/Globulin Ratio 1.03 Vancomycin Level Trough 11.8 Medications Medication Current Medications Acetaminophen (Tylenol Tab) 500 mg Q6H PRN PO MILD PAIN(1-3)OR ELEVATED TEMP; Start 08/22/18 at 23:00 Amlodipine Besylate (Norvasc) 5 mg BID PO Last administered on 08/23/18at 09:37; Admin Dose 5 MG; Start 08/22/18 at 23:00 Anastrozole (Arimidex) 1 mg DAILY PO Last administered on 08/24/18at 09:46; Admin Dose 1 MG; Start 08/23/18 at 09:00 Benazepril HCl (Lotensin) 5 mg BID PO Last administered on 08/23/18 09:38; Admin Dose 5 MG; Start 08/22/18 at 23:00 Carvedilol (Coreg) 3.125 mg BID PO ; Start 08/22/18 at 23:00; Status UNV Docusate Sodium (Colace) 200 mg BID PO Last administered on 08/24/18 09:41; Admin Dose 200 MG; Start 08/22/18 at 23:00 Escitalopram Oxalate (Lexapro) 10 mg DAILY PO Last administered on 08/24/18 09:41; Admin Dose 10 MG; Start 08/23/18 at 09:00 Furosemide (Lasix) 20 mg DAILY PO ; Start 08/23/18 at 09:00; Status UNV Magnesium Hydroxide (Milk Of Mag) 30 ml DAILY PO Last administered on 08/24/18 09:40; Admin Dose 30 ML; Start 08/23/18 at 09:00 Ondansetron HCl (Zofran Tab) 4 mg Q6H PRN PO NAUSEA AND/OR VOMITING; Start 08/22/18 at 23:00 Pantoprazole (Protonix Tab) 40 mg AC BREAKFAST PO Last administered on 08/24/18 07:47; Admin Dose 40 MG; Start 08/23/18 at 07:00 Polyethylene Glycol (Miralax) 17 gm TID PO Last administered on 08/24/18 09:40; Admin Dose 17 GM; Start 08/23/18 at 09:00 Furosemide (Lasix) 40 mg BID DIURETICS IV Last administered on 08/24/18 17:19; Admin Dose 40 MG; Start 08/22/18 at 23:00 Potassium Chloride (Klor-Con 20) 20 meq DAILY PO Last administered on 08/24/18 09:41; Admin Dose 20 MEQ; Start 08/23/18 at 09:00 Metoprolol Tartrate (Lopressor) 50 mg BID PO Last administered on 08/24/18 09:41; Admin Dose 50 MG; Start 08/22/18 at 23:00 Oxycodone HCl (Oxycontin) 20 mg Q12 PO Last administered on 08/24/18 09:44; Admin Dose 20 MG; Start 08/23/18 at 09:00 Vancomycin/Sodium Chloride 250 ml @ 125 mls/hr Q8H IVPB Last administered on 08/24/18at 12:41; Admin Dose 125 MLS/HR; Start 08/24/18 at 05:00 Magnesium Sulfate 50 ml @ 25 mls/hr DAILY IVPB Last administered on 08/24/18at 10:45; Admin Dose 25 MLS/HR; Start 08/23/18 at 20:30; Stop 08/26/18 at 09:00 DES DUNAWAY MD Aug 24, 2018 20:48
--- NOTE | 2018-08-24 21:56 | PN ---
Date/Time of Note Date/Time of Note DATE: 08/24/18 TIME: 21:49 Assessment/Plan VTE Prophylaxis Risk score (from Nsg)>0 risk: 3 SCD applied (from Ns): No SCD contraindicated: low risk/ambulating Pharmacological prophylaxis: LMWH Lines/Catheters IV Catheter Type (from Nrsg): Peripheral IV Central line still needed: No Urinary Cath still in place: No Reason Cath still needed: urinary retention Assessment/Plan Assessment/Plan 1. Cancer of the left breast. Exact type at this time unknown.MULTIPLE BONY METS, PULMONARY METS 2. Severe pain in the interscapular and lumbar sacral area most probably metastatic lesion possible femoral fracture. pathologic fracture of T9 with 60% of loss of height. Neurosurgical f/u. 3. Obesity. 4. Weight loss 60 pounds during the last 2 years by diet 5. PMS. 6. Myopia. 7. Anemia chronic disease with a drop of her hematocrit to 27 and regaining to 30 without any measures. Latest results 28. Protonix was added. Today hematocrit is 26. Will recheck tomorrow 8. Anxiety disorder. Claustrophobia. Increase Ativan to 1 mg every 8 as needed at Lexapro 10 mg daily. 9. Posttraumatic stress disorder. 10. Pain in the left forearm with a history of fracture of ulna and radius. 11. Tachycardia 12. Hypoxemia at night marginal improved after 2 L of nasal cannula oxygen. 13. Deconditioning 14. 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 15. Pain syndrome. Today the most painful zone is in the right hip area. X- ray did not show any fractures. 16. Hyponatremia- resolved 17. Leucopenia-improved. 18. Neutropenia with occasional fever and chills. Hold discharge, until she is stable. 19. Hypoalbuminemia 2.4 now 2.7 20.Right sided cp after catheter insertion and correction less discomfort. 21. Decreased edema both lower extremities with hypotension-improving 22.Swelling of the left forearm. 23.S/p right yesterday and left today thoracentesis with 900cc yesterday and 750cc fluid removal. Result Diagram: 08/24/18 0802 08/24/18 0802 Results 24hrs Laboratory Tests Test 08/24/18 08:02 08/24/18 19:27 White Blood Count 1.9 #L Red Blood Count 3.87 L Hemoglobin 12.7 Hematocrit 38.5 Mean Corpuscular Volume 99.5 Mean Corpuscular Hemoglobin 32.8 Mean Corpuscular Hemoglobin Concent 33.0 Red Cell Distribution Width 15.7 H Platelet Count 137 L Mean Platelet Volume 10.0 Immature Granulocytes % 0.500 H Neutrophils % 30.9 L Lymphocytes % 55.2 H Monocytes % 11.9 H Eosinophils % 0.0 Basophils % 1.5 Nucleated Red Blood Cells % 0.0 Immature Granulocytes # 0.010 Neutrophils # 0.6 L Lymphocytes # 1.1 Monocytes # 0.2 L Eosinophils # 0.0 Basophils # 0.0 Nucleated Red Blood Cells # 0.0 Sodium Level 138 Potassium Level 3.8 Chloride Level 100 Carbon Dioxide Level 32 H Anion Gap 6 Blood Urea Nitrogen 19 Creatinine 0.65 Est Glomerular Filtrat Rate mL/min > 60 Glucose Level 95 Calcium Level 8.1 L Total Bilirubin 0.7 Direct Bilirubin 0.00 Indirect Bilirubin 0.7 Aspartate Amino Transf (AST/SGOT) 43 Alanine Aminotransferase (ALT/SGPT) 31 Alkaline Phosphatase 64 Total Protein 5.9 L Albumin 3.0 L Globulin 2.90 Albumin/Globulin Ratio 1.03 Vancomycin Level Trough 11.8 Subjective 24 Hr Interval Summary Free Text/Dictation My breathing improved significantly.I feel better, but i am very weak. Constitutional: improved, chills, poor po, requiring O2; No no complaints, No diaphoresis, No disoriented, No febrile, No requiring IVF, No other Eyes: No no complaints, No pain, No discharge, No redness, No visual change, No other ENT: No no complaints, No bleeding, No pain, No congestion, No discharge, No dysphagia, No sore throat, No other Respiratory: shortness of breath; No no complaints, No pain, No pleuritic pain, No sputum, No wheezing, No other Cardiovascular: edema, palpitations; No no complaints, No chest pain, No lightheadedness, No orthopenea, No paroxysmal nocturnal dyspnea, No other Gastrointestinal: constipation; No no complaints, No pain, No blood, No decreased appetite, No diarrhea, No flatus, No nausea, No passing stool, No vomiting, No other Genitourinary: dysuria; No no complaints, No bleeding, No discharge, No flank pain, No hematuria, No other Musculoskeletal: back pain, bone/joint pain Skin: no complaints; No bruising, No erythema, No laceration, No pruritis, No rash, No skin le sions, No other Neurologic: headache; No no complaints, No confusion, No dizziness, No focal-weakness, No syncope, No seizure, No other Exam/Review of Systems Exam Vitals Vital Signs Date Temp Pulse Resp B/P (MAP) Pulse Ox O2 O2 Flow FiO2 Time Delivery Rate 08/24/18 98.6 82 20 94/51 (65) 92 20:10 08/24/18 Nasal 19:49 Cannula 08/24/18 2.0 09:30 Intake and Output 08/23/18 08/23/18 08/24/18 1515:00 23:00 07:00 IntakeIntake Total 600 ml BalanceBalance 600 ml Constitutional: alert, oriented, well developed, distress, frail, obese Psych: anxiety; No no complaints, No nl mood/affect, No confusion, No depression, No suicidal, No other Head: normocephalic, atraumatic; No lacerations, No hematomas, No other Eyes: EOMI, PERRL; No nl conjunctiva, No nl lids, No nl sclera, No icteric, No fundi, disc, No other ENMT: No nl external ears & nose, No nl lips & teeth, No nl nasal mucosa & septum, No mucosa pink and moist, No intubated, No tympanic membranes, No other Neck: bruits, nuchal rigidity; No supple, No non-tender, No jvd, No masses, No thyromegaly, No other Respiratory: normal air movement, congested cough, diminished breath sounds; No clear to auscultation, No crackles/rales, No intercostal retraction, No labored breathing, No respirations, No tactile fremitus, No wheezing, No other Cardiovascular: regular rate and rhythm, edema (left upper extremity forarm, very swollen.); No nl pulses, No bruits, No diastolic murmur, No gallop, No irregular rhythm, No jugular venous distention (JVD), No murmurs/extra sounds, No rub, No systolic murmur, No S3, No S4, No other Gastrointestinal: soft, bowel sounds, distended; No nl liver, spleen, No non-tender, No ascites, No firm, No hepatomegaly, No mass, No rebound or guarding, No splenomegaly, No surgical scars, No tender, No other Genitourinary - Female: nl adnexae, nl external genitalia Musculoskeletal: joint tenderness, muscle tone, muscle weakness; No nl extremities to inspection, No nl gait and stance, No range of motion, No spine non-tender, No swelling, No other Extremities: normal pulses, edema; No calf tenderness, No cyanosis, No clubbing, No pitting pedal edema, No palpable cord, No tenderness, No other 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: TEMPLATE INSPECTOR 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, confused, numbness; No nl mental status, No nl speech, No nl strength, No DTR's symmetric, No focal weakness, No lethargic, No reflexes, No unresponsive, No other Skin: nl turgor; No rash or lesions, No diaphoresis, No ecchymosis, No laceration, No puncture, No other Lymph: No nl lymph nodes, No enlarged, No nontender, No other Results Results 24hrs Laboratory Tests Test 08/24/18 08:02 08/24/18 19:27 White Blood Count 1.9 #L Red Blood Count 3.87 L Hemoglobin 12.7 Hematocrit 38.5 Mean Corpuscular Volume 99.5 Mean Corpuscular Hemoglobin 32.8 Mean Corpuscular Hemoglobin Concent 33.0 Red Cell Distribution Width 15.7 H Platelet Count 137 L Mean Platelet Volume 10.0 Immature Granulocytes % 0.500 H Neutrophils % 30.9 L Lymphocytes % 55.2 H Monocytes % 11.9 H Eosinophils % 0.0 Basophils % 1.5 Nucleated Red Blood Cells % 0.0 Immature Granulocytes # 0.010 Neutrophils # 0.6 L Lymphocytes # 1.1 Monocytes # 0.2 L Eosinophils # 0.0 Basophils # 0.0 Nucleated Red Blood Cells # 0.0 Sodium Level 138 Potassium Level 3.8 Chloride Level 100 Carbon Dioxide Level 32 H Anion Gap 6 Blood Urea Nitrogen 19 Creatinine 0.65 Est Glomerular Filtrat Rate mL/min > 60 Glucose Level 95 Calcium Level 8.1 L Total Bilirubin 0.7 Direct Bilirubin 0.00 Indirect Bilirubin 0.7 Aspartate Amino Transf (AST/SGOT) 43 Alanine Aminotransferase (ALT/SGPT) 31 Alkaline Phosphatase 64 Total Protein 5.9 L Albumin 3.0 L Globulin 2.90 Albumin/Globulin Ratio 1.03 Vancomycin Level Trough 11.8 Medications Medication Current Medications Acetaminophen (Tylenol Tab) 500 mg Q6H PRN PO MILD PAIN(1-3)OR ELEVATED TEMP; Start 08/22/18 at 23:00 Amlodipine Besylate (Norvasc) 5 mg BID PO Last administered on 08/23/18 09:37; Admin Dose 5 MG; Start 08/22/18 at 23:00 Anastrozole (Arimidex) 1 mg DAILY PO Last administered on 08/24/18 09:46; Admin Dose 1 MG; Start 08/23/18 at 09:00 Benazepril HCl (Lotensin) 5 mg BID PO Last administered on 08/23/18 09:38; Admin Dose 5 MG; Start 08/22/18 at 23:00 Carvedilol (Coreg) 3.125 mg BID PO ; Start 08/22/18 at 23:00; Status UNV Docusate Sodium (Colace) 200 mg BID PO Last administered on 08/24/18 21:20; Admin Dose 200 MG; Start 08/22/18 at 23:00 Escitalopram Oxalate (Lexapro) 10 mg DAILY PO Last administered on 08/24/18 09:41; Admin Dose 10 MG; Start 08/23/18 at 09:00 Furosemide (Lasix) 20 mg DAILY PO ; Start 08/23/18 at 09:00; Status UNV Magnesium Hydroxide (Milk Of Mag) 30 ml DAILY PO Last administered on 08/24/18 09:40; Admin Dose 30 ML; Start 08/23/18 at 09:00 Ondansetron HCl (Zofran Tab) 4 mg Q6H PRN PO NAUSEA AND/OR VOMITING; Start 08/22/18 at 23:00 Pantoprazole (Protonix Tab) 40 mg AC BREAKFAST PO Last administered on 08/24/18 07:47; Admin Dose 40 MG; Start 08/23/18 at 07:00 Polyethylene Glycol (Miralax) 17 gm TID PO Last administered on 08/24/18 21:20; Admin Dose 17 GM; Start 08/23/18 at 09:00 Furosemide (Lasix) 40 mg BID DIURETICS IV Last administered on 08/24/18 17:19; Admin Dose 40 MG; Start 08/22/18 at 23:00 Potassium Chloride (Klor-Con 20) 20 meq DAILY PO Last administered on 08/24/18 09:41; Admin Dose 20 MEQ; Start 08/23/18 at 09:00 Metoprolol Tartrate (Lopressor) 50 mg BID PO Last administered on 08/24/18 09:41; Admin Dose 50 MG; Start 08/22/18 at 23:00 Oxycodone HCl (Oxycontin) 20 mg Q12 PO Last administered on 08/24/18 21:21; Admin Dose 20 MG; Start 08/23/18 at 09:00 Vancomycin/Sodium Chloride 250 ml @ 125 mls/hr Q8H IVPB Last administered on 08/24/18 21:20; Admin Dose 125 MLS/HR; Start 08/24/18 at 05:00 Magnesium Sulfate 50 ml @ 25 mls/hr DAILY IVPB Last administered on 08/24/18 10:45; Admin Dose 25 MLS/HR; Start 08/23/18 at 20:30; Stop 08/26/18 at 09:00 Filgrastim (Neupogen) 300 mcg DAILY@1700 SC ; Start 08/24/18 at 22:00 RUSS JEROME MD Aug 24, 2018 21:56
[2018-08-24] MEDS: FILGRASTIM 300 MCG INJ SC SCH (22:16)
[2018-08-25] VITALS (10 sets, daily range): BP systolic 95–118; BP diastolic 58–77; PULSE 89–105; RESP 16–18
[2018-08-25] MEDS: VANCOMYCIN 750 MG (PMX) 250 ML IVPB SCH ×3 (05:39→21:14)
[2018-08-25] MEDS: FUROSEMIDE 40 MG INJ IV SCH ×2 (06:00→18:47)
[2018-08-25] MEDS: BENAZEPRIL 5 MG TAB PO SCH (09:00)
[2018-08-25] MEDS: POLYETHYLENE GLYCOL 17 GM PACKET PO SCH ×3 (09:27→21:11)
[2018-08-25] MEDS: MAGNESIUM HYDROXIDE 30ML CUP PO SCH (09:27)
[2018-08-25] MEDS: DOCUSATE SODIUM 100 MG CAP PO SCH ×2 (09:27→21:00)
[2018-08-25] MEDS: AMLODIPINE 5 MG TAB PO SCH (09:27)
[2018-08-25] MEDS: METOPROLOL 50 MG TAB PO SCH (09:28)
[2018-08-25] MEDS: POTASSIUM CHLORIDE (SR) 20 MEQ TAB PO SCH (09:28)
[2018-08-25] MEDS: ESCITALOPRAM 10 MG TAB PO SCH (09:28)
[2018-08-25] MEDS: PANTOPRAZOLE (EC) 40 MG TAB PO SCH (09:28)
[2018-08-25] MEDS: ANASTROZOLE 1 MG TAB PO SCH (09:38)
[2018-08-25] MEDS: MAGNESIUM SULFATE 2 GM/50 ML 50 ML IVPB SCH (09:40)
[2018-08-25] MEDS: oxyCODONE (CR) 20 MG TAB [oxyCONTIN] PO SCH ×2 (09:41→21:11)
--- NOTE | 2018-08-25 11:32 | PN ---
Date/Time of Note Date/Time of Note DATE: 08/25/18 TIME: 11:28 Assessment/Plan VTE Prophylaxis Risk score (from Ns)>0 risk: 3 SCD applied (from Ns): No SCD contraindicated: low risk/ambulating, other (She is able to hold getting tired easily needs support.) Pharmacological prophylaxis: LMWH Lines/Catheters IV Catheter Type (from [facility]): Portacath Central line still needed: No Urinary Cath still in place: No Reason Cath still needed: urinary retention Assessment/Plan Assessment/Plan 1. Cancer of the left breast. Exact type at this time unknown.MULTIPLE BONY METS, PULMONARY METS 2. Severe pain in the interscapular and lumbar sacral area most probably metastatic lesion possible femoral fracture. pathologic fracture of T9 with 60% of loss of height. Neurosurgical f/u. 3. Obesity. 4. Weight loss 60 pounds during the last 2 years by diet 5. PMS. 6. Myopia. 7. Anemia chronic disease with a drop of her hematocrit to 27 and regaining to 30 without any measures. Latest results 28. Protonix was added. Today hematocrit is 26. Will recheck tomorrow 8. Anxiety disorder. Claustrophobia. Increase Ativan to 1 mg every 8 as needed at Lexapro 10 mg daily. 9. Posttraumatic stress disorder. 10. Pain in the left forearm with a history of fracture of ulna and radius. 11. Tachycardia 12. Hypoxemia at night marginal improved after 2 L of nasal cannula oxygen. 13. Deconditioning 14. 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 15. Pain syndrome. Today the most painful zone is in the right hip area. X- ray did not show any fractures. 16. Hyponatremia- resolved 17. Leucopenia-improved. 18. Neutropenia with occasional fever and chills. Hold discharge, until she is stable. 19. Hypoalbuminemia 2.4 now 2.7 20.Right sided cp after catheter insertion and correction less discomfort. 21. Decreased edema both lower extremities with hypotension-improving 22.Swelling of the left forearm-persist. 23.S/p right yesterday and left today thoracentesis with 900cc yesterday and 750cc fluid removal. Result Diagram: 08/25/18 0635 08/24/18 0802 Results 24hrs Laboratory Tests Test 08/24/18 19:27 08/25/18 06:35 Vancomycin Level Trough 11.8 White Blood Count 17.0 #H Red Blood Count 3.74 L Hemoglobin 12.2 Hematocrit 37.3 Mean Corpuscular Volume 99.7 Mean Corpuscular Hemoglobin 32.6 Mean Corpuscular Hemoglobin Concent 32.7 Red Cell Distribution Width 15.5 H Platelet Count 110 L Mean Platelet Volume 9.9 Immature Granulocytes % 0.600 H Neutrophils % 89.8 H Lymphocytes % 6.9 L Monocytes % 2.2 Eosinophils % 0.0 Basophils % 0.5 Nucleated Red Blood Cells % 0.0 Immature Granulocytes # 0.110 H Neutrophils # 15.2 H Lymphocytes # 1.2 Monocytes # 0.4 Eosinophils # 0.0 Basophils # 0.1 Nucleated Red Blood Cells # 0.0 Subjective 24 Hr Interval Summary Free Text/Dictation Swelling of left upper extremity persists. Pain in the right hip area and right ankle. Shortness of breath improved by about 30-40%. Constitutional: improved, poor po, requiring O2; No no complaints, No chills, No diaphoresis, No disoriented, No febrile, No requiring IVF, No other Eyes: visual change; No no complaints, No pain, No discharge, No redness, No other ENT: No no complaints, No bleeding, No pain, No congestion, No discharge, No dysphagia, No sore throat, No other Respiratory: cough, pleuritic pain, shortness of breath; No no complaints, No pain, No sputum, No wheezing, No other Cardiovascular: edema, other (Left upper extremity more prominent in the fore arm area anteriorly.); No no complaints, No chest pain, No lightheadedness, No orthopenea, No palp itations, No paroxysmal nocturnal dyspnea Gastrointestinal: constipation, decreased appetite, nausea, passing stool; No no complaints, No pain, No blood, No diarrhea, No flatus, No vomiting, No other Genitourinary: dysuria; No no complaints, No bleeding, No discharge, No flank pain, No hematuria, No other Musculoskeletal: back pain, bone/joint pain, neck pain, other (Pain in the right hip upper third and laterally.); No no complaints, No restricted range of motion, No swelling Skin: No no complaints, No bruising, No erythema, No laceration, No pruritis, No rash, No skin lesions, No other Neurologic: dizziness, headache; No no complaints, No confusion, No focal-weakness, No syncope, No seizure, No other Psychological: anxiety; No no complaints, No nl mood/affect, No confusion, No depression, No suicidal, No other Exam/Review of Systems Exam Vitals Vital Signs Date Temp Pulse Resp B/P (MAP) Pulse Ox O2 O2 Flow FiO2 Time Delivery Rate 08/25/18 103 09:44 08/25/18 98.2 16 115/77 92 07:37 (90) 08/25/18 Nasal 2.0 07:30 Cannula Intake and Output 08/24/18 08/24/18 08/25/18 1515:00 23:00 07:00 IntakeIntake Total 300 ml 700 ml 550 ml OutputOutput Total 1200 ml BalanceBalance 300 ml -500 ml 550 ml Constitutional: alert, oriented, well developed, distress, frail, obese; No non-verbal, No other Psych: anxiety, depression; No no complaints, No nl mood/affect, No confusion, No suicidal, No other Head: normocephalic, atraumatic; No lacerations, No hematomas, No other Eyes: EOMI, nl lids, PERRL; No nl conjunctiva, No nl sclera, No icteric, No fundi, disc, No other ENMT: No nl external ears & nose, No nl lips & teeth, No nl nasal mucosa & septum, No mucosa pink and moist, No intubated, No tympanic membranes, No other Neck: thyromegaly, nuchal rigidity; No supple, No non-tender, No jvd, No bruits, No masses, No other Respiratory: clear to auscultation, congested cough, crackles/rales, diminished breath sounds, wheezing; No normal air movement, No intercostal retraction, No labored breathing, No respirations, No tactile fremitus, No other Cardiovascular: nl pulses, bruits, irregular rhythm, jugular venous distention (JVD), systolic murmur; No regular rate and rhythm, No diastolic murmur, No edema, No gallop, No murmurs/extra sounds, No rub, No S3, No S4, No other Gastrointestinal: soft, nl liver, spleen, bowel sounds; No non-tender, No ascites, No distended, No firm, No hepatomegaly, No mass, No rebound or guarding, No splenomegaly, No surgical scars, No tender, No other Musculoskeletal: joint tenderness, muscle tone, muscle weakness; No nl extremities to inspection, No nl gait and stance, No range of motion, No spine non-tender, No swelling, No other Extremities: edema (Left upper extremity anterior part mainly there is a depression in the skin and elbow area with the size of about 4-5 cm deep in the site of pressure wire pitting edema had disappeared.), pitting pedal edema; No normal pulses, No calf tenderness, No cyanosis, No clubbing, No palpable cord, No tenderness, No other 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: FILLING LAYER UP 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, confused, numbness; No nl mental status, No nl speech, No nl strength, No DTR's symmetric, No focal weakness, No lethargic, No reflexes, No unresponsive, No other Skin: nl turgor, other (The color of the left breast is more brown dark no masses palpable no discharge); No rash or lesions, No diaphoresis, No ecchymosis, No laceration, No puncture Lymph: nl lymph nodes; No enlarged, No nontender, No other Results Results 24hrs Laboratory Tests Test 08/24/18 19:27 08/25/18 06:35 Vancomycin Level Trough 11.8 White Blood Count 17.0 #H Red Blood Count 3.74 L Hemoglobin 12.2 Hematocrit 37.3 Mean Corpuscular Volume 99.7 Mean Corpuscular Hemoglobin 32.6 Mean Corpuscular Hemoglobin Concent 32.7 Red Cell Distribution Width 15.5 H Platelet Count 110 L Mean Platelet Volume 9.9 Immature Granulocytes % 0.600 H Neutrophils % 89.8 H Lymphocytes % 6.9 L Monocytes % 2.2 Eosinophils % 0.0 Basophils % 0.5 Nucleated Red Blood Cells % 0.0 Immature Granulocytes # 0.110 H Neutrophils # 15.2 H Lymphocytes # 1.2 Monocytes # 0.4 Eosinophils # 0.0 Basophils # 0.1 Nucleated Red Blood Cells # 0.0 Medications Medication Current Medications Acetaminophen (Tylenol Tab) 500 mg Q6H PRN PO MILD PAIN(1-3)OR ELEVATED TEMP; Start 08/22/18 at 23:00 Amlodipine Besylate (Norvasc) 5 mg BID PO Last administered on 08/25/18at 09:27; Admin Dose 5 MG; Start 08/22/18 at 23:00 Anastrozole (Arimidex) 1 mg DAILY PO Last administered on 08/25/18 09:38; Admin Dose 1 MG; Start 08/23/18 at 09:00 Benazepril HCl (Lotensin) 5 mg BID PO Last administered on 08/23/18 09:38; Admin Dose 5 MG; Start 08/22/18 at 23:00 Carvedilol (Coreg) 3.125 mg BID PO ; Start 08/22/18 at 23:00; Status UNV Docusate Sodium (Colace) 200 mg BID PO Last administered on 08/25/18:27; Admin Dose 200 MG; Start 08/22/18 at 23:00 Escitalopram Oxalate (Lexapro) 10 mg DAILY PO Last administered on 08/25/18:28; Admin Dose 10 MG; Start 08/23/18 at 09:00 Furosemide (Lasix) 20 mg DAILY PO ; Start 08/23/18 at 09:00; Status UNV Magnesium Hydroxide (Milk Of Mag) 30 ml DAILY PO Last administered on 08/25/18:27; Admin Dose 30 ML; Start 08/23/18 at 09:00 Ondansetron HCl (Zofran Tab) 4 mg Q6H PRN PO NAUSEA AND/OR VOMITING; Start 08/22/18 at 23:00 Pantoprazole (Protonix Tab) 40 mg AC BREAKFAST PO Last administered on 08/25/18:28; Admin Dose 40 MG; Start 08/23/18 at 07:00 Polyethylene Glycol (Miralax) 17 gm TID PO Last administered on 08/25/18:27; Admin Dose 17 GM; Start 08/23/18 at 09:00 Furosemide (Lasix) 40 mg BID DIURETICS IV Last administered on 08/24/18 17:19; Admin Dose 40 MG; Start 08/22/18 at 23:00 Potassium Chloride (Klor-Con 20) 20 meq DAILY PO Last administered on 08/25/18:28; Admin Dose 20 MEQ; Start 08/23/18 at 09:00 Metoprolol Tartrate (Lopressor) 50 mg BID PO Last administered on 08/25/18 09:28; Admin Dose 50 MG; Start 08/22/18 at 23:00 Oxycodone HCl (Oxycontin) 20 mg Q12 PO Last administered on 08/25/18at 09:41; Admin Dose 20 MG; Start 08/23/18 at 09:00 Vancomycin/Sodium Chloride 250 ml @ 125 mls/hr Q8H IVPB Last administered on 08/25/18at 05:39; Admin Dose 125 MLS/HR; Start 08/24/18 at 05:00 Magnesium Sulfate 50 ml @ 25 mls/hr DAILY IVPB Last administered on 08/25/18at 09:40; Admin Dose 25 MLS/HR; Start 08/23/18 at 20:30; Stop 08/26/18 at 09:00 Filgrastim (Neupogen) 300 mcg DAILY@1700 SC Last administered on 08/24/18at 22:16; Admin Dose 300 MCG; Start 08/24/18 at 22:00 RUSS JEROME MD Aug 25, 2018 11:32
[2018-08-25] MEDS: ONDANSETRON 4 MG TAB PO PRN (14:34)
[2018-08-25] MEDS: FILGRASTIM 300 MCG INJ SC SCH (17:00)
--- NOTE | 2018-08-25 17:33 | CONS ---
DATE OF ADMISSION: 08/22/2018 DATE OF CONSULTATION: 08/25/2018 TYPE OF CONSULTATION: Cardiology. REASON FOR CONSULTATION: Congestive heart failure. REQUESTING PHYSICIAN: Russ Morrissey MD and Tayla Fernández MD HISTORY OF PRESENT ILLNESS: Ms. Foreman is a 58-year-old female with history of breast cancer m etastatic to the bones, subsequent compression fractures, congestive heart failure with preserved eje ction fraction by most recent echo and hypertension, who presents with complaints of shortness of louie ath, chills, cough, generalized weakness. Initially upon arrival, temperature was 98.4, blood pressu re 129/89, pulse 108, respiration 24, satting 85%. The patient's labs were notable for white blood c ell count of 2.7, hemoglobin 13.7, platelet count of 151, sodium 138, potassium 4.7, creatinine 0.5, BUN 14, troponin negative, BNP of 57, INR of 0.96. ABG with a pH of 7.343, a PaO2 of 70, pCO2 of 40. The patient underwent a CTA of the chest revealing no evidence of pulmonary embolism, moderate bila teral effusions, mild ground glass opacification in the upper lung zones, small effusion, pericardial effusion, extensive osseous metastatic disease and chest x-ray revealed bibasilar atelectasis, cardi omegaly, mild pulmonary vascular congestion. In addition, the patient had a KUB done revealing no ev idence of ascites and subsequently on 08/23/2018 underwent a thoracentesis on the right side relievin g 900 mL of fluid and on the night underwent the left-sided thoracentesis removing 700 mL of fluid. In addition, the patient has had a venous ultrasound revealing no DVT involving the left upper extrem ity and has undergone a hip x-ray revealing findings consistent with subacute to chronic femoral neck fracture and ankle x-ray that revealed diffuse soft tissue swelling without evidence of acute fractu re. The patient does not have electrocardiogram in chart for my review at this time. The patient randle s been monitored on telemetry revealing sinus rhythm. PAST MEDICAL HISTORY: As above in HPI. MEDICATIONS CURRENTLY IN HOSPITAL: 1. Neupogen. 2. Vancomycin. 3. Anastrozole. 4. Lexapro. 5. Lasix 20 mg daily. 6. Polyethylene glycol. 7. Potassium chloride. 8. Oxycodone. 9. Tylenol. 10. Norvasc 5 mg p.o. b.i.d. 11. Benazepril 5 mg p.o. b.i.d. 12. Carvedilol 3.125 mg p.o. b.i.d. 13. Zocor p.r.n. 14. Lasix 40 mg IV b.i.d. 15. Metoprolol 50 mg b.i.d. ALLERGIES: NO KNOWN DRUG ALLERGIES. SOCIAL HISTORY: No current tobacco, EtOH or illicit drug use. FAMILY HISTORY: No history of sudden cardiac or early CAD. REVIEW OF SYSTEMS: As above in HPI. CONSTITUTIONAL: No fevers, chills. PULMONARY: Shortness of breath. CARDIOVASCULAR: Congestive heart failure, diastolic by previous echo. GASTROINTESTINAL: No vomiting. GENITOURINARY: No hematuria. MUSCULOSKELETAL: Degenerative joint disease. PSYCHIATRIC: The patient denies depression. NEUROLOGIC: No documented history of CVA. ENDOCRINE: No documented history of diabetes mellitus. PSYCHIATRIC: Positive history of depression. HEMATOLOGIC: Anemia, resolved neutropenia. PHYSICAL EXAMINATION: VITAL SIGNS: Temperature of 98.2, blood pressure 105/63, pulse 99, respiratory rate 16, satting 94%. GENERAL: The patient is alert, awake, in no acute distress. NECK: JVP approximately is 8 to 9 cm water. CHEST: Decreased breath sounds at bases bilaterally. HEART: Regular rate and rhythm. Normal S1, S2, I/ systolic murmur, nondisplaced PMI. ABDOMEN: Positive bowel sounds, soft. EXTREMITIES: Right lower extremity greater than left lower extremity edema. A 1+ pulses bilaterally posterior tibial. LABORATORY DATA: Most recently from today, white blood cell count of 7.17, hemoglobin of 12.2, plate let count of 110. Sodium 138, potassium 3.8, creatinine 0.6, BUN 19. Bilirubin 1.7. Troponin negat josh x2. TSH 0.368. BNP last time was 57. IMAGING STUDIES: As above in HPI. No further imaging studies for my review at this time. ELECTROCARDIOGRAM: No electrocardiogram for my review at this time. IMPRESSION: 1. Congestive heart failure exacerbation would be diastolic by most recent echo, acute on chronic. 2. Hypotension, borderline. 3. History of metastatic breast cancer to the bone. 4. Pathologic fracture of the hip. 5. Resolved neutropenia. 6. Shortness of breath, cough, assess for associated upper respiratory illness. 7. Suppressed TSH to hyperthyroid state. 8. Thrombocytopenia, mild. 9. Possible bacteremia versus contaminant. 10. Pleural effusion, status post thoracentesis. RECOMMENDATIONS: 1. At this time, we would maintain the patient on telemetry monitoring to follow rhythm and rate con trol closely. 2. We would continue the patient's beta-bailee but is written for both metoprolol and carvedilol. We are going to continue just one like metoprolol at this time as the patient was found to have decre ased systolic function by repeat echo. 3. We will continue the patient on benazepril afterload reduction as tolerated and likely discontinu e the patient's calcium channel bailee given marginal blood pressures. 4. We would continue the patient's Lasix diuresis, but may want to decrease dose and follow blood pr essure closely especially the patient is status post thoracentesis and overall improved volume status and BNP is very low not indicative of severe heart failure and may in fact effusion could be possibl y malignant. 5. Check a free T4 in order to further assess the patient's current thyroid state. 6. Continue the patient's antibiotics and follow up all culture data. 7. Check right lower extremity venous ultrasound to rule out DVT. Thank you for allowing me to take part in the care of this patient. I will continue to follow her ve ry closely with you with further recommendations will be made as the patient progresses through her [facility] clinical course. Dictated By: KAMILA VIRAMONTES/NTS Conf#: [id number] DID#: [id number] CC: RUSS MORRISSEY MD;*EndCC*
--- NOTE | 2018-08-25 18:15 | RADRPT ---
Report amended on 2018-08-25 at 6:25 PM: Added/Modified: Pericardium: [ADDED] Pericardial Effusion: Trivial pericardial effusion. Deleted: Pericardium: [REMOVED] Pleural Effusion: No pleural effusion noted. Electronically Signed by: Myke Hurtado 2018-08-25 18:25:31 PDT
--- NOTE | 2018-08-25 22:22 | CONS ---
Assessment/Plan Assessment/Plan Hospital Course (Demo Recall) METASTATIC BREAST CANCER WITH PRIMARY ADENOCARCINOMA IN the left breast. MULTIPLE BONY METS, PULMONARY METS, LIVER METS CHEMO ON HOLD PT HAS A VERY GOOD RESPONSE TO CHEMO AND AI CONT AI FOR NOW Leucopenia- post chemo improved. DC NEUPOGEN Neutropenia with occasional fever and chills. agree with Holding discharge, until she is stable. Severe pain in the interscapular and lumbar sacral area most probably metastatic lesion possible femoral fracture. pathologic fracture of T9 with 60% of loss of height. Neurosurgical f-p Obesity. Weight loss 60 pounds during the last 2 years by diet PMS. Myopia. Anemia chronic disease with a drop of her hematocrit to 27 and regaining to 30 without any measures. Latest results 28. Protonix was added. Today hematocrit is 26. Will recheck tomorrow Anxiety disorder. Claustrophobia. Increase Ativan to 1 mg every 8 as needed at Lexapro 10 mg daily. Posttraumatic stress disorder. Pain in the left forearm with a history of fracture of ulna and radius. Tachycardia Hypoxemia at night marginal improved after 2 L of nasal cannula oxygen. Deconditioning Pain syndrome. Today the most painful zone is in the right hip area. X-ray did not show any fractures. Hyponatremia- resolved Hypoalbuminemia 2.4 now 2.7 Right sided cp after catheter insertion and correction less discomfort. Decreased edema both lower extremities with hypotension-improving Swelling of the left forearm-persist. PLEURAL EFFUSIONS S/p BL thoracentesis with 900cc yesterday and 750cc fluid removal. Consultation Date/Type/Reason Admit Date/Time Aug 22, 2018 at 20:16 Initial Consult Date 08/23/18 Type of Consult [facility] Requesting Provider: RUSS JEROME MD Date/Time of Note DATE: 08/25/18 TIME: 22:14 24 HR Interval Summary Free Text/Dictation + SOB, + HIP PAIN Exam/Review of Systems Exam Vitals Vital Signs Date Temp Pulse Resp B/P (MAP) Pulse Ox O2 O2 Flow FiO2 Time Delivery Rate 08/25/18 104 20:00 08/25/18 98.7 17 118/71 93 20:00 (87) 08/25/18 Nasal 2.0 07:30 Cannula Intake and Output 08/24/18 08/24/18 08/25/18 1515:00 23:00 07:00 IntakeIntake Total 300 ml 700 ml 550 ml OutputOutput Total 1200 ml BalanceBalance 300 ml -500 ml 550 ml Exam Constitutional: alert, oriented, well developed, distress, frail, obese Psych: anxiety; No no complaints, No nl mood/affect, No confusion, No depression, No suicidal, No other Head: normocephalic, atraumatic; No lacerations, No hematomas, No other Eyes: EOMI, PERRL; No nl conjunctiva, No nl lids, No nl sclera, No icteric, No fundi, disc, No other ENMT: No nl external ears & nose, No nl lips & teeth, No nl nasal mucosa & septum, No mucosa pink and moist, No intubated, No tympanic membranes, No other Neck: bruits, nuchal rigidity; No supple, No non-tender, No jvd, No masses, No thyromegaly, No other Respiratory: normal air movement, congested cough, diminished breath sounds; No clear to auscultation, No crackles/rales, No intercostal retraction, No labored breathing, No respirations, No tactile fremitus, No wheezing, No other Cardiovascular: regular rate and rhythm, edema (left upper extremity forarm, very swollen.); No nl pulses, No bruits, No diastolic murmur, No gallop, No irregular rhythm, No jugular venous distention (JVD), No murmurs/extra sounds, No rub, No systolic murmur, No S3, No S4, No other Gastrointestinal: soft, bowel sounds, distended; No nl liver, spleen, No non-tender, No ascites, No firm, No hepatomegaly, No mass, No rebound or guarding, No splenomegaly, No surgical scars, No tender, No other Genitourinary - Female: nl adnexae, nl external genitalia Musculoskeletal: joint tenderness, muscle tone, muscle weakness; No nl extremities to inspection, No nl gait and stance, No range of motion, No spine non-tender, No swelling, No other Extremities: normal pulses, edema; No calf tenderness, No cyanosis, No clubbing, No pitting pedal edema, No palpable cord, No tenderness, No other 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: LAND EXAMINER 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, confused, numbness; No nl mental status, No nl speech, No nl strength, No DTR's symmetric, No focal weakness, No lethargic, No reflexes, No unresponsive, No other Skin: nl turgor; No rash or lesions, No diaphoresis, No ecchymosis, No laceration, No puncture, No other Lymph: No nl lymph nodes, No enlarged, No nontender, No other Results Result Diagram: 08/25/18 0635 08/24/18 0802 Results 24hrs Laboratory Tests Test 08/25/18 06:35 White Blood Count 17.0 #H Red Blood Count 3.74 L Hemoglobin 12.2 Hematocrit 37.3 Mean Corpuscular Volume 99.7 Mean Corpuscular Hemoglobin 32.6 Mean Corpuscular Hemoglobin Concent 32.7 Red Cell Distribution Width 15.5 H Platelet Count 110 L Mean Platelet Volume 9.9 Immature Granulocytes % 0.600 H Neutrophils % 89.8 H Lymphocytes % 6.9 L Monocytes % 2.2 Eosinophils % 0.0 Basophils % 0.5 Nucleated Red Blood Cells % 0.0 Immature Granulocytes # 0.110 H Neutrophils # 15.2 H Lymphocytes # 1.2 Monocytes # 0.4 Eosinophils # 0.0 Basophils # 0.1 Nucleated Red Blood Cells # 0.0 Medications Medication Current Medications Acetaminophen (Tylenol Tab) 500 mg Q6H PRN PO MILD PAIN(1-3)OR ELEVATED TEMP; Start 08/22/18 at 23:00 Anastrozole (Arimidex) 1 mg DAILY PO Last administered on 08/25/18at 09:38; Admin Dose 1 MG; Start 08/23/18 at 09:00 Carvedilol (Coreg) 3.125 mg BID PO ; Start 08/25/18 at 21:00 Docusate Sodium (Colace) 200 mg BID PO Last administered on 08/25/18at 09:27; Admin Dose 200 MG; Start 08/22/18 at 23:00 Escitalopram Oxalate (Lexapro) 10 mg DAILY PO Last administered on 08/25/18at 09:28; Admin Dose 10 MG; Start 08/23/18 at 09:00 Magnesium Hydroxide (Milk Of Mag) 30 ml DAILY PO Last administered on 08/25/18at 09:27; Admin Dose 30 ML; Start 08/23/18 at 09:00 Ondansetron HCl (Zofran Tab) 4 mg Q6H PRN PO NAUSEA AND/OR VOMITING Last administered on 08/25/18 14:34; Admin Dose 4 MG; Start 08/22/18 at 23:00 Pantoprazole (Protonix Tab) 40 mg AC BREAKFAST PO Last administered on 09:28; Admin Dose 40 MG; Start 08/23/18 at 07:00 Polyethylene Glycol (Miralax) 17 gm TID PO Last administered on 08/25/18 21:11; Admin Dose 17 GM; Start 08/23/18 at 09:00 Furosemide (Lasix) 40 mg BID DIURETICS IV Last administered on 08/25/18 18:47; Admin Dose 40 MG; Start 08/22/18 at 23:00 Potassium Chloride (Klor-Con 20) 20 meq DAILY PO Last administered on 08/25/18 09:28; Admin Dose 20 MEQ; Start 08/23/18 at 09:00 Oxycodone HCl (Oxycontin) 20 mg Q12 PO Last administered on 08/25/18 21:11; Admin Dose 20 MG; Start 08/23/18 at 09:00 Vancomycin/Sodium Chloride 250 ml @ 125 mls/hr Q8H IVPB Last administered on 08/25/18 21:14; Admin Dose 125 MLS/HR; Start 08/24/18 at 05:00 Magnesium Sulfate 50 ml @ 25 mls/hr DAILY IVPB Last administered on 08/25/18 09:40; Admin Dose 25 MLS/HR; Start 08/23/18 at 20:30; Stop 08/26/18 at 09:00 Filgrastim (Neupogen) 300 mcg DAILY@1700 SC Last administered on 08/25/18 17:00; Admin Dose 300 MCG; Start 08/24/18 at 22:00 Benazepril HCl (Lotensin) 5 mg DAILY PO ; Start 08/26/18 at 09:00 DES DUNAWAY MD Aug 25, 2018 22:22
[2018-08-26] VITALS (10 sets, daily range): BP systolic 99–130; BP diastolic 56–81; PULSE 97–118; RESP 16–18
[2018-08-26] MEDS: VANCOMYCIN 750 MG (PMX) 250 ML IVPB SCH (05:18)
[2018-08-26] MEDS: FUROSEMIDE 40 MG INJ IV SCH ×2 (06:24→17:35)
[2018-08-26] MEDS: PANTOPRAZOLE (EC) 40 MG TAB PO SCH (07:38)
[2018-08-26] MEDS: POTASSIUM CHLORIDE (SR) 20 MEQ TAB PO SCH (08:06)
[2018-08-26] MEDS: DOCUSATE SODIUM 100 MG CAP PO SCH ×2 (08:06→21:00)
[2018-08-26] MEDS: MAGNESIUM HYDROXIDE 30ML CUP PO SCH (08:07)
[2018-08-26] MEDS: POLYETHYLENE GLYCOL 17 GM PACKET PO SCH ×4 (08:07→21:00)
[2018-08-26] MEDS: ESCITALOPRAM 10 MG TAB PO SCH (08:07)
[2018-08-26] MEDS: MAGNESIUM SULFATE 2 GM/50 ML 50 ML IVPB SCH (08:07)
[2018-08-26] MEDS: oxyCODONE (CR) 20 MG TAB [oxyCONTIN] PO SCH ×2 (08:07→21:42)
[2018-08-26] MEDS: BENAZEPRIL 5 MG TAB PO SCH ×2 (08:08→12:33)
[2018-08-26] MEDS: ANASTROZOLE 1 MG TAB PO SCH (08:15)
--- NOTE | 2018-08-26 09:39 | PN ---
Date/Time of Note Date/Time of Note DATE: 08/26/18 TIME: 09:39 Assessment/Plan VTE Prophylaxis Risk score (from Ns)>0 risk: 5 SCD applied (from Ns): No SCD contraindicated: low risk/ambulating Pharmacological prophylaxis: LMWH Lines/Catheters IV C[facility]ter Type [facility]from [facility] Portacath Central line still needed: No Urinary Cath still in place: No Reason Cath still needed: urinary retention Assessment/Plan Result Diagram: 08/26/18 0536 08/24/18 0802 Results 24hrs Laboratory Tests Test 08/26/18 05:36 White Blood Count 7.8 # Red Blood Count 3.54 L Hemoglobin 11.5 L Hematocrit 36.4 L Mean Corpuscular Volume 102.8 H Mean Corpuscular Hemoglobin 32.5 Mean Corpuscular Hemoglobin Concent 31.6 L Red Cell Distribution Width 15.4 H Platelet Count 91 L Mean Platelet Volume 10.2 Immature Granulocytes % 0.500 H Neutrophils % 81.7 H Lymphocytes % 13.5 L Monocytes % 3.7 Eosinophils % 0.0 Basophils % 0.6 Nucleated Red Blood Cells % 0.0 Immature Granulocytes # 0.040 H Neutrophils # 6.4 Lymphocytes # 1.1 Monocytes # 0.3 Eosinophils # 0.0 Basophils # 0.1 Nucleated Red Blood Cells # 0.0 Subjective 24 Hr Interval Summary Free Text/Dictation Shortness of breath improved. Able to walk almost half. On the floor. Constitutional: improved, diaphoresis, poor po, requiring O2; No no complaints, No chills, No disoriented, No febrile, No requiring IVF, No other Eyes: No no complaints, No pain, No discharge, No redness, No visual change, No other ENT: pain, congestion; No no complaints, No bleeding, No discharge, No dysphagia, No sore throat, No other Respiratory: cough, shortness of breath; No no complaints, No pain, No pleuritic pain, No sputum, No wheezing, No other Cardiovascular: chest pain, lightheadedness, orthopenea; No no complaints, No edema, No palpitations, No paroxysmal nocturnal dyspnea, No other Gastrointestinal: constipation; No no complaints, No pain, No blood, No decreased appetite, No diarrhea, No flatus, No nausea, No passing stool, No vomiting, No other Genitourinary: dysuria, flank pain; No no complaints, No bleeding, No discharge, No hematuria, No other Musculoskeletal: back pain, bone/joint pain Exam/Review of Systems Exam Vitals Vital Signs Date Temp Pulse Resp B/P (MAP) Pulse Ox O2 O2 Flow FiO2 Time Delivery Rate 08/26/18 118 08:51 08/26/18 98.2 16 99/73 (82) 94 07:34 08/26/18 3.0 05:48 08/26/18 Nasal 00:10 Cannula Intake and Output 08/25/18 08/25/18 08/26/18 1414:59 22:59 06:59 IntakeIntake Total 850 ml 400 ml BalanceBalance 850 ml 400 ml Constitutional: alert, oriented, well developed, distress, frail; No non-verbal, No obese, No other Psych: anxiety; No no complaints, No nl mood/affect, No confusion, No depression, No suicidal, No other Head: normocephalic, atraumatic Eyes: EOMI, nl lids, PERRL; No nl conjunctiva, No nl sclera, No icteric, No fundi, disc, No other ENMT: nl external ears & nose, nl nasal mucosa & septum Neck: jvd, bruits, thyromegaly, nuchal rigidity; No supple, No non-tender, No masses, No other Respiratory: normal air movement, congested cough, crackles/rales, diminished breath sounds; No clear to auscultation, No intercostal retraction, No labored breathing, No respirations, No tactile fremitus, No wheezing, No other Cardiovascular: regular rate and rhythm, bruits, jugular venous distention (JVD), systolic murmur; No nl pulses, No diastolic murmur, No gallop, No irregular rhythm, No murmurs/extra sounds, No rub, No S3, No S4, No other Gastrointestinal: soft, nl liver, spleen, bowel sounds, distended; No non-tender, No ascites, No firm, No hepatomegaly, No mass, No rebound or guarding, No splenomegaly, No surgical scars, No tender, No other Genitourinary - Female: nl adnexae, nl external genitalia; No CMT, No CVA tenderness, No uterus, No other Musculoskeletal: swelling (left forearm.) Results Results 24hrs Laboratory Tests Test 08/26/18 05:36 White Blood Count 7.8 # Red Blood Count 3.54 L Hemoglobin 11.5 L Hematocrit 36.4 L Mean Corpuscular Volume 102.8 H Mean Corpuscular Hemoglobin 32.5 Mean Corpuscular Hemoglobin Concent 31.6 L Red Cell Distribution Width 15.4 H Platelet Count 91 L Mean Platelet Volume 10.2 Immature Granulocytes % 0.500 H Neutrophils % 81.7 H Lymphocytes % 13.5 L Monocytes % 3.7 Eosinophils % 0.0 Basophils % 0.6 Nucleated Red Blood Cells % 0.0 Immature Granulocytes # 0.040 H Neutrophils # 6.4 Lymphocytes # 1.1 Monocytes # 0.3 Eosinophils # 0.0 Basophils # 0.1 Nucleated Red Blood Cells # 0.0 Medications Medication Current Medications Acetaminophen (Tylenol Tab) 500 mg Q6H PRN PO MILD PAIN(1-3)OR ELEVATED TEMP; Start 08/22/18 at 23:00 Anastrozole (Arimidex) 1 mg DAILY PO Last administered on 08/26/18 08:15; Admin Dose 1 MG; Start 08/23/18 at 09:00 Carvedilol (Coreg) 3.125 mg BID PO ; Start 08/25/18 at 21:00 Docusate Sodium (Colace) 200 mg BID PO Last administered on 08/26/18 08:06; Admin Dose 200 MG; Start 08/22/18 at 23:00 Escitalopram Oxalate (Lexapro) 10 mg DAILY PO Last administered on 08/26/18 08:07; Admin Dose 10 MG; Start 08/23/18 at 09:00 Magnesium Hydroxide (Milk Of Mag) 30 ml DAILY PO Last administered on 08/26/18 08:07; Admin Dose 30 ML; Start 08/23/18 at 09:00 Ondansetron HCl (Zofran Tab) 4 mg Q6H PRN PO NAUSEA AND/OR VOMITING Last administered on 08/25/18 14:34; Admin Dose 4 MG; Start 08/22/18 at 23:00 Pantoprazole (Protonix Tab) 40 mg AC BREAKFAST PO Last administered on 08/26/18 07:38; Admin Dose 40 MG; Start 08/23/18 at 07:00 Polyethylene Glycol (Miralax) 17 gm TID PO Last administered on 3/11/19at 08:07; Admin Dose 17 GM; Start 08/23/18 at 09:00 Furosemide (Lasix) 40 mg BID DIURETICS IV Last administered on 08/26/18at 06:24 ; Admin Dose 40 MG; Start 08/22/18 at 23:00 Potassium Chloride (Klor-Con 20) 20 meq DAILY PO Last administered on 08/26/18at 08:06; Admin Dose 20 MEQ; Start 08/23/18 at 09:00 Oxycodone HCl (Oxycontin) 20 mg Q12 PO Last administered on 08/26/18at 08:07; Admin Dose 20 MG; Start 08/23/18 at 09:00 Vancomycin/Sodium Chloride 250 ml @ 125 mls/hr Q8H IVPB Last administered on 08/26/18at 05:18; Admin Dose 125 MLS/HR; Start 08/24/18 at 05:00 Filgrastim (Neupogen) 300 mcg DAILY@1700 SC Last administered on 08/25/18at 17:00; Admin Dose 300 MCG; Start 08/24/18 at 22:00 Benazepril HCl (Lotensin) 5 mg DAILY PO ; Start 08/26/18 at 09:00 RUSS JEROME MD Aug 26, 2018 09:39
--- NOTE | 2018-08-26 13:53 | CONS ---
Assessment/Plan Assessment/Plan Hospital Course (Demo Recall) IMPRESSION: 1. Congestive heart failure exacerbation would be diastolic by most recent echo, acute on chronic. EF 60-65% by echo this admit 2. Hypotension, borderline. 3. History of metastatic breast cancer to the bone. 4. Pathologic fracture of the hip. 5. Resolved neutropenia. 6. Shortness of breath, cough, assess for associated upper respiratory illness. 7. Suppressed TSH to hyperthyroid state. 8. Thrombocytopenia, mild. 9. Possible bacteremia versus contaminant. 10. Pleural effusion, status post thoracentesis-bilateral Recc: -Tele -serial ecg's -send final troponin to complete antonia -Contineu coreg with increase to improve HR and patient comfort -consider additional diuresis -Would check cytology on pleural fluid Consultation Date/Type/Reason Admit Date/Time Aug 22, 2018 at 20:16 Initial Consult Date 08/25/18 Type of Consult Cardiology Reason for Consultation chf Requesting Provider: RUSS JEROME MD Date/Time of Note DATE: 08/26/18 TIME: 13:46 Exam/Review of Systems Vital Signs Vitals Vital Signs Date Temp Pulse Resp B/P (MAP) Pulse Ox O2 O2 Flow FiO2 Time Delivery Rate 08/26/18 98.5 105 16 119/79 95 11:12 (92) 08/26/18 3.0 05:48 08/26/18 Nasal 00:10 Cannula Intake and Output 08/25/18 08/25/18 08/26/18 1414:59 22:59 06:59 IntakeIntake Total 850 ml 400 ml BalanceBalance 850 ml 400 ml Exam Exam Review of Systems: CONSTITUTIONAL: No fevers, chills. PULMONARY: ongoing sob CARDIOVASCULAR: No chest pain/palpitations GASTROINTESTINAL: No nausea/vomiting. GENITOURINARY: No hematuria/dysuria. MUSCULOSKELETAL: No myagias/arthalgias. PSYCHIATRIC: The patient denies depression. NEUROLOGIC: No weakness Constitutional: alert Psych: no complaints Head: normocephalic ENMT: mucosa pink and moist Neck: supple, jvd (9 cm water) Respiratory: diminished breath sounds (at bases/B) Cardiovascular: regular rate and rhythm Gastrointestinal: soft, non-tender Musculoskeletal: muscle tone (normal) Extremities: edema (none) 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: other (No focal deficits) Labs Result Diagram: 08/26/18 0536 08/24/18 0802 Results 24hrs Laboratory Tests Test 08/26/18 05:36 White Blood Count 7.8 # Red Blood Count 3.54 L Hemoglobin 11.5 L Hematocrit 36.4 L Mean Corpuscular Volume 102.8 H Mean Corpuscular Hemoglobin 32.5 Mean Corpuscular Hemoglobin Concent 31.6 L Red Cell Distribution Width 15.4 H Platelet Count 91 L Mean Platelet Volume 10.2 Immature Granulocytes % 0.500 H Neutrophils % 81.7 H Lymphocytes % 13.5 L Monocytes % 3.7 Eosinophils % 0.0 Basophils % 0.6 Nucleated Red Blood Cells % 0.0 Immature Granulocytes # 0.040 H Neutrophils # 6.4 Lymphocytes # 1.1 Monocytes # 0.3 Eosinophils # 0.0 Basophils # 0.1 Nucleated Red Blood Cells # 0.0 Medications Medications Current Medications Acetaminophen (Tylenol Tab) 500 mg Q6H PRN PO MILD PAIN(1-3)OR ELEVATED TEMP; Start 08/22/18 at 23:00 Anastrozole (Arimidex) 1 mg DAILY PO Last administered on 08/26/18 08:15; Admin Dose 1 MG; Start 08/23/18 at 09:00 Carvedilol (Coreg) 3.125 mg BID PO Last administered on 08/26/18 12:32; Admin Dose 3.125 MG; Start 08/25/18 at 21:00 Docusate Sodium (Colace) 200 mg BID PO Last administered on 08/26/18 08:06; Admin Dose 200 MG; Start 08/22/18 at 23:00 Escitalopram Oxalate (Lexapro) 10 mg DAILY PO Last administered on 08/26/18 0 8:07; Admin Dose 10 MG; Start 08/23/18 at 09:00 Magnesium Hydroxide (Milk Of Mag) 30 ml DAILY PO Last administered on 08/26/18 08:07; Admin Dose 30 ML; Start 08/23/18 at 09:00 Ondansetron HCl (Zofran Tab) 4 mg Q6H PRN PO NAUSEA AND/OR VOMITING Last administered on 08/25/18 14:34; Admin Dose 4 MG; Start 08/22/18 at 23:00 Pantoprazole (Protonix Tab) 40 mg AC BREAKFAST PO Last administered on 08/26 07:38; Admin Dose 40 MG; Start 08/23/18 at 07:00 Polyethylene Glycol (Miralax) 17 gm TID PO Last administered on 08/26/18 12:33; Admin Dose 17 GM; Start 08/23/18 at 09:00 Furosemide (Lasix) 40 mg BID DIURETICS IV Last administered on 08/26/18 06:24; Admin Dose 40 MG; Start 08/22/18 at 23:00 Potassium Chloride (Klor-Con 20) 20 meq DAILY PO Last administered on 08/26/18 08:06; Admin Dose 20 MEQ; Start 08/23/18 at 09:00 Oxycodone HCl (Oxycontin) 20 mg Q12 PO Last administered on 08/26/18 08:07; Admin Dose 20 MG; Start 08/23/18 at 09:00 Filgrastim (Neupogen) 300 mcg DAILY@1700 SC Last administered on 08/25/18 17:00; Admin Dose 300 MCG; Start 08/24/18 at 22:00 Benazepril HCl (Lotensin) 5 mg DAILY PO Last administered on 08/26/18 12:33; Admin Dose 5 MG; Start 08/26/18 at 09:00 KAMILA TERESA Aug 26, 2018 13:53
[2018-08-26] MEDS: FILGRASTIM 300 MCG INJ SC SCH (17:34)
--- NOTE | 2018-08-26 22:31 | CONS ---
Assessment/Plan Assessment/Plan Hospital Course (Demo Recall) METASTATIC BREAST CANCER WITH PRIMARY ADENOCARCINOMA IN the left breast. MULTIPLE BONY METS, PULMONARY METS, LIVER METS CHEMO ON HOLD PT HAS A VERY GOOD RESPONSE TO CHEMO AND AI CONT AI FOR NOW Leucopenia- post chemo improved. DC NEUPOGEN Neutropenia with occasional fever and chills. agree with Holding discharge, until she is stable. Severe pain in the interscapular and lumbar sacral area most probably metastatic lesion possible femoral fracture. pathologic fracture of T9 with 60% of loss of height. Neurosurgical f-p Obesity. Weight loss 60 pounds during the last 2 years by diet PMS. Myopia. Anemia chronic disease with a drop of her hematocrit to 27 and regaining to 30 without any measures. Anxiety disorder. Claustrophobia. Increase Ativan to 1 mg every 8 as needed at Lexapro 10 mg daily. Posttraumatic stress disorder. Pain in the left forearm with a history of fracture of ulna and radius. Tachycardia Hypoxemia at night marginal improved after 2 L of nasal cannula oxygen. Deconditioning Pain syndrome. Today the most painful zone is in the right hip area. X-ray did not show any fractures. Hyponatremia- resolved Hypoalbuminemia 2.4 now 2.7 Right sided cp after catheter insertion and correction less discomfort. Decreased edema both lower extremities with hypotension-improving Swelling of the left forearm-persist. PLEURAL EFFUSIONS S/p R thoracentesis Consultation Date/Type/Reason Admit Date/Time Aug 22, 2018 at 20:16 Initial Consult Date 08/23/18 Type of Consult [facility] Requesting Provider: RUSS JEROME MD Date/Time of Note DATE: 08/26/18 TIME: 22:30 24 HR Interval Summary Free Text/Dictation ALL NOTED NAD PLATELET COUNT GOING DOWN Exam/Review of Systems Exam Vitals Vital Signs Date Temp Pulse Resp B/P (MAP) Pulse Ox O2 O2 Flow FiO2 Time Delivery Rate 08/26/18 98.5 100 18 102/56 93 20:00 (71) 08/26/18 3.0 13:47 08/26/18 Nasal 00:10 Cannula Intake and Output 08/25/18 08/25/18 08/26/18 1414:59 22:59 06:59 IntakeIntake Total 850 ml 400 ml BalanceBalance 850 ml 400 ml Exam Constitutional: alert, oriented, well developed, distress, frail, obese Psych: anxiety; No no complaints, No nl mood/affect, No confusion, No depression, No suicidal, No other Head: normocephalic, atraumatic; No lacerations, No hematomas, No other Eyes: EOMI, PERRL; No nl conjunctiva, No nl lids, No nl sclera, No icteric, No fundi, disc, No other ENMT: No nl external ears & nose, No nl lips & teeth, No nl nasal mucosa & septum, No mucosa pink and moist, No intubated, No tympanic membranes, No other Neck: bruits, nuchal rigidity; No supple, No non-tender, No jvd, No masses, No thyromegaly, No other Respiratory: normal air movement, congested cough, diminished breath sounds; No clear to auscultation, No crackles/rales, No intercostal retraction, No labored breathing, No respirations, No tactile fremitus, No wheezing, No other Cardiovascular: regular rate and rhythm, edema (left upper extremity forarm, very swollen.); No nl pulses, No bruits, No diastolic murmur, No gallop, No irregular rhythm, No jugular venous distention (JVD), No murmurs/extra sounds, No rub, No systolic murmur, No S3, No S4, No other Gastrointestinal: soft, bowel sounds, distended; No nl liver, spleen, No non-tender, No ascites, No firm, No hepatomegaly, No mass, No rebound or guarding, No splenomegaly, No surgical scars, No tender, No other Genitourinary - Female: nl adnexae, nl external genitalia Musculoskeletal: joint tenderness, muscle tone, muscle weakness; No nl extremities to inspection, No nl gait and stance, No range of motion, No spine non-tender, No swelling, No other Extremities: normal pulses, edema; No calf tenderness, No cyanosis, No clubbing, No pitting pedal edema, No palpable cord, No tenderness, No other 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: [employer] 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, confused, numbness; No nl mental status, No nl speech, No nl strength, No DTR's symmetric, No focal weakness, No lethargic, No reflexes, No unresponsive, No other Skin: nl turgor; No rash or lesions, No diaphoresis, No ecchymosis, No laceration, No puncture, No other Lymph: No nl lymph nodes, No enlarged, No nontender, No other Results Result Diagram: 08/26/18 0536 08/24/18 0802 Results 24hrs Laboratory Tests Test 08/26/18 05:36 08/26/18 14:17 White Blood Count 7.8 # Red Blood Count 3.54 L Hemoglobin 11.5 L Hematocrit 36.4 L Mean Corpuscular Volume 102.8 H Mean Corpuscular Hemoglobin 32.5 Mean Corpuscular Hemoglobin Concent 31.6 L Red Cell Distribution Width 15.4 H Platelet Count 91 L Mean Platelet Volume 10.2 Immature Granulocytes % 0.500 H Neutrophils % 81.7 H Lymphocytes % 13.5 L Monocytes % 3.7 Eosinophils % 0.0 Basophils % 0.6 Nucleated Red Blood Cells % 0.0 Immature Granulocytes # 0.040 H Neutrophils # 6.4 Lymphocytes # 1.1 Monocytes # 0.3 Eosinophils # 0.0 Basophils # 0.1 Nucleated Red Blood Cells # 0.0 Troponin I < 0.012 Free Thyroxine 1.42 Medications Medication Current Medications Acetaminophen (Tylenol Tab) 500 mg Q6H PRN PO MILD PAIN(1-3)OR ELEVATED TEMP; Start 08/22/18 at 23:00 Anastrozole (Arimidex) 1 mg DAILY PO Last administered on 08/26/18 08:15; Admin Dose 1 MG; Start 08/23/18 at 09:00 Docusate Sodium (Colace) 200 mg BID PO Last administered on 08/26/18 08:06; Admin Dose 200 MG; Start 08/22/18 at 23:00 Escitalopram Oxalate (Lexapro) 10 mg DAILY PO Last administered on 08/26/18 08:07; Admin Dose 10 MG; Start 08/23/18 at 09:00 Magnesium Hydroxide (Milk Of Mag) 30 ml DAILY PO Last administered on 08/26/18 08:07; Admin Dose 30 ML; Start 08/23/18 at 09:00 Ondansetron HCl (Zofran Tab) 4 mg Q6H PRN PO NAUSEA AND/OR VOMITING Last administered on 08/25/18 14:34; Admin Dose 4 MG; Start 08/22/18 at 23:00 Pantoprazole (Protonix Tab) 40 mg AC BREAKFAST PO Last administered on 08/26/18 07:38; Admin Dose 40 MG; Start 08/23/18 at 07:00 Polyethylene Glycol (Miralax) 17 gm TID PO Last administered on 08/26/18 12:33; Admin Dose 17 GM; Start 08/23/18 at 09:00 Furosemide (Lasix) 40 mg BID DIURETICS IV Last administered on 08/26/18 17:35; Admin Dose 40 MG; Start 08/22/18 at 23:00 Potassium Chloride (Klor-Con 20) 20 meq DAILY PO Last administered on 08/26/18 08:06; Admin Dose 20 MEQ; Start 08/23/18 at 09:00 Oxycodone HCl (Oxycontin) 20 mg Q12 PO Last administered on 08/26/18 21:42; Admin Dose 20 MG; Start 08/23/18 at 09:00 Filgrastim (Neupogen) 300 mcg DAILY@1700 SC Last administered on 08/26/18 17:34; Admin Dose 300 MCG; Start 08/24/18 at 22:00 Carvedilol (Coreg) 6.25 mg BID PO ; Start 08/26/18 at 21:00 DES DUNAWAY MD Aug 26, 2018 22:31
[2018-08-27] VITALS (10 sets, daily range): BP systolic 95–133; BP diastolic 61–97; PULSE 50–117; RESP 16–18
[2018-08-27] MEDS: FUROSEMIDE 40 MG INJ IV SCH ×2 (06:22→17:30)
[2018-08-27] MEDS: PANTOPRAZOLE (EC) 40 MG TAB PO SCH (06:25)
[2018-08-27] MEDS: POLYETHYLENE GLYCOL 17 GM PACKET PO SCH ×2 (08:04→12:10)
[2018-08-27] MEDS: ESCITALOPRAM 10 MG TAB PO SCH (08:04)
[2018-08-27] MEDS: DOCUSATE SODIUM 100 MG CAP PO SCH (08:04)
[2018-08-27] MEDS: MAGNESIUM HYDROXIDE 30ML CUP PO SCH (08:04)
[2018-08-27] MEDS: POTASSIUM CHLORIDE (SR) 20 MEQ TAB PO SCH (08:04)
[2018-08-27] MEDS: oxyCODONE (CR) 20 MG TAB [oxyCONTIN] PO SCH (08:04)
[2018-08-27] MEDS: ANASTROZOLE 1 MG TAB PO SCH (08:09)
[2018-08-27] MEDS: ONDANSETRON 4 MG TAB PO PRN (08:34)
--- NOTE | 2018-08-27 09:08 | CONS ---
Consult Date/Type/Reason Admit Date/Time Aug 22, 2018 at 20:16 Initial Consult Date Requesting Provider: RUSS JEROME MD Date/Time of Note DATE: 08/27/18 TIME: 09:04 Subjective NO acute events - improved s/p thoracocentesis - still episodes of tach - had one episode of a-v dissociation day prior - not a good invasive candidate with co-morbidities. ROS: No fever, no chills, no nausea, no vomiting, no diarrhea/constipation No recent weight changes No chest pain, no PND, no orthopnea + SOB, + tachy No dizziness, blurred vision No thirst, no heat or cold intolerance Objective Vitals Vital Signs Date Temp Pulse Resp B/P (MAP) Pulse Ox O2 O2 Flow FiO2 Time Delivery Rate 08/27/18 114 18 133/97 92 Nasal 08:29 (109) Cannula 08/27/18 97.6 08:14 08/27/18 3.0 01:18 Intake and Output 08/26/18 08/26/18 08/27/18 1515:00 23:00 07:00 IntakeIntake Total 50 ml 800 ml 400 ml BalanceBalance 50 ml 800 ml 400 ml Exam General: WN/WD/NAD, AOx 3 HEENT: Unicetric/atraumatic/EOMI (follow commands) - lost hair now NECK: JVD elevated, no thyromegaly Lymph: no lymphadenopathy HEART: regular with no S3, II/ systolic murmur at apex LUNGS: Coarse sounds ABD: soft, NT, ND, +BS : Intact Neuro: non focal SKIN: chronic changes EXT: 1+ edema Results/Medications Result Diagram: 08/27/18 0545 08/24/18 0802 Results 24 hrs Laboratory Tests Test 08/26/18 14:17 08/27/18 05:45 Troponin I < 0.012 Free Thyroxine 1.42 White Blood Count 12.9 #H Red Blood Count 3.46 L Hemoglobin 11.3 L Hematocrit 34.9 L Mean Corpuscular Volume 100.9 Mean Corpuscular Hemoglobin 32.7 Mean Corpuscular Hemoglobin Concent 32.4 Red Cell Distribution Width 15.6 H Platelet Count 104 L Mean Platelet Volume 11.0 H Immature Granulocytes % 1.100 H Neutrophils % 83.9 H Lymphocytes % 10.7 L Monocytes % 3.8 Eosinophils % 0.0 Basophils % 0.5 Nucleated Red Blood Cells % 0.0 Immature Granulocytes # 0.140 H Neutrophils # 10.9 H Lymphocytes # 1.4 Monocytes # 0.5 Eosinophils # 0.0 Basophils # 0.1 Nucleated Red Blood Cells # 0.0 Home Meds Reported Medications Ondansetron Hcl* (Zofran*) 4 Mg Tab, 4 MG PO Q6H PRN for NAUSEA AND OR VOMITING, TAB 08/22/18 Amino Acids/Protein Hydrolys (Pro-Stat Awc Liquid) 30 Ml Liquid, 15 ML PO TID 08/22/18 Pantoprazole* (Pantoprazole*) 40 Mg Tablet.dr, 40 MG PO AC BREAKFAST, TAB 08/22/18 Oxycodone Hcl* (Oxycontin*) 20 Mg Tab.er.12h, 20 MG PO Q12, TAB 08/22/18 Amlodipine Besylate* (Norvasc*) 5 Mg Tablet, 5 MG PO BID, TAB HOLD FOR SBP <110. 08/22/18 Naloxegol Oxalate (Movantik) 12.5 Mg Tablet, 12.5 MG PO BID, TAB 08/22/18 Polyethylene Glycol* (Miralax*) 17 Gm Powd.pack, 17 GM PO TID, #60 PACKET 08/22/18 Magnesium Hydroxide* (Milk Of Magnesia*) 400 Mg/5 Ml Oral.susp, 30 ML PO DAILY, ML 08/22/18 Escitalopram Oxalate* (Lexapro*) 10 Mg Tablet, 10 MG PO DAILY, #30 TAB 08/22/18 Furosemide* (Furosemide*) 20 Mg Tablet, 20 MG PO DAILY, #60 TAB HOLD FOR SBP <110. 08/22/18 Docusate Sodium* (Colace*) 100 Mg Capsule, 200 MG PO BID, #60 CAP 08/22/18 Carvedilol* (Carvedilol*) 3.125 Mg Tablet, 3.125 MG PO BID, #60 TAB HOLD FOR SBP <110 OR CO <60. GIVE WITH FOOD. 08/22/18 Lactose-Free Food (Boost High Protein) 237 Ml Liquid, 120 ML PO BID 08/22/18 Benazepril Hcl* (Benazepril Hcl*) 5 Mg Tablet, 5 MG PO BID, #60 TAB HOLD FOR SBP <110. 08/22/18 Anastrozole* (Arimidex*) 1 Mg Tablet, 1 MG PO DAILY, #30 TAB 08/22/18 Acetaminophen* (Acetaminophen*) 500 MG Extra Strength Tablet, 500 MG PO Q6H PRN for PAIN AND OR ELEVATED TEMP, TAB 08/22/18 Discontinued Reported Medications Zolpidem Tartrate* (Ambien*) 10 Mg Tablet, 10 MG PO QHS PRN for INSOMNIA, TAB 08/22/18 Discontinued Scripts Polyethylene Glycol* (Miralax*) 17 Gm Powd.pack, 17 GM PO BID for 30 Days, #60 BOTTLE Prov:RUSS JEROME MD 05/30/18 Magnesium Hydroxide* (Steinberg' MOM*) 30 Ml Susp, 30 ML PO DAILY PRN for CONSTIPATION for 14 Days, #20 CAP.EC Prov:RUSS JEROME MD 05/30/18 Docusate Sodium (Dok) 100 Mg Capsule, 200 MG PO BID for 30 Days, #60 CAP Prov:RUSS JEROME MD 05/30/18 Oxycodone Hcl* (Oxycontin*) 20 Mg Tab.er.12h, 20 MG PO BID for 30 Days, #60 TAB Prov:RUSS JEROME MD 05/30/18 Zolpidem Tartrate (Ambien Hector) 5 Mg Tablet, 10 MG PO HS PRN for INSOMNIA for 30 Days, #30 TAB Prov:RUSS JEROME MD 05/30/18 Lorazepam* (Ativan*) 0.5 Mg Tablet, 0.5 MG PO TID PRN for ANXIETY for 30 Days, #30 TAB Prov:RUSS JEROME MD 05/30/18 Acetaminophen* (Tylenol*) 500 Mg Tab, 500 MG PO Q6H PRN for MILD PAIN(1-3)OR ELEVATED TEMP for 30 Days, #120 TAB Prov:RUSS JEROME MD 05/30/18 Benazepril Hcl* (Benazepril Hcl*) 5 Mg Tablet, 5 MG PO BID for 30 Days, #30 TAB Prov:RUSS JEROME MD 05/30/18 Amlodipine Besylate* (Amlodipine Besylate*) 5 Mg Tablet, 5 MG PO BID for 30 Day s, #60 TAB Prov:RUSS JEROME MD 05/30/18 Anastrozole* (Arimidex*) 1 Mg Tablet, 1 MG PO DAILY for 30 Days, #30 TAB Prov:RUSS JEROME MD 05/30/18 Medications Current Medications Acetaminophen (Tylenol Tab) 500 mg Q6H PRN PO MILD PAIN(1-3)OR ELEVATED TEMP; Start 08/22/18 at 23:00 Anastrozole (Arimidex) 1 mg DAILY PO Last administered on 08/27/18 08:09; Admin Dose 1 MG; Start 08/23/18 at 09:00 Docusate Sodium (Colace) 200 mg BID PO Last administered on 08/27/18 08:04; Admin Dose 200 MG; Start 08/22/18 at 23:00 Escitalopram Oxalate (Lexapro) 10 mg DAILY PO Last administered on 08/27/18 08:04; Admin Dose 10 MG; Start 08/23/18 at 09:00 Magnesium Hydroxide (Milk Of Mag) 30 ml DAILY PO Last administered on 08/27/18 08:04; Admin Dose 30 ML; Start 08/23/18 at 09:00 Ondansetron HCl (Zofran Tab) 4 mg Q6H PRN PO NAUSEA AND/OR VOMITING Last administered on 08/27/18 08:34; Admin Dose 4 MG; Start 08/22/18 at 23:00 Pantoprazole (Protonix Tab) 40 mg AC BREAKFAST PO Last administered on 08/27/18 06:25; Admin Dose 40 MG; Start 08/23/18 at 07:00 Polyethylene Glycol (Miralax) 17 gm TID PO Last administered on 08/26/18 12:33; Admin Dose 17 GM; Start 08/23/18 at 09:00 Furosemide (Lasix) 40 mg BID DIURETICS IV Last administered on 08/27/18 06:22; Admin Dose 40 MG; Start 08/22/18 at 23:00 Potassium Chloride (Klor-Con 20) 20 meq DAILY PO Last administered on 08/27/18 08:04; Admin Dose 20 MEQ; Start 08/23/18 at 09:00 Oxycodone HCl (Oxycontin) 20 mg Q12 PO Last administered on 08/27/18 08:04; Admin Dose 20 MG; Start 08/23/18 at 09:00 Filgrastim (Neupogen) 300 mcg DAILY@1700 SC Last administered on 08/26/18at 17:34; Admin Dose 300 MCG; Start 08/24/18 at 22:00 Carvedilol (Coreg) 6.25 mg BID PO Last administered on 08/27/18at 08:06; Admin Dose 6.25 MG; Start 08/26/18 at 21:00 Assessment/Plan Hospital Course (Demo Recall) 1. Congestive heart failure exacerbation would be diastolic by most recent echo, acute on chronic. EF 60-65% by echo this admit - con't gentle diuresis. 2. Hypotension, borderline - stable now. 3. History of metastatic breast cancer to the bone - overall, poor prognosis. 4. Pathologic fracture of the hip- treated. 5. Resolved neutropenia. 6. Shortness of breath, cough, assess for associated upper respiratory illness. Improved with thoracocentesis. 7. Suppressed TSH to hyperthyroid state. 8. Thrombocytopenia, mild. 9. Possible bacteremia versus contaminant. 10. Pleural effusion, status post thoracentesis-bilateral - better now. EMILY NELSON MD Aug 27, 2018 09:08
[2018-08-27] MEDS ORDERED: BARIUM SULF 2% 450 ML BTL (BERRY SMOOTHIE) PO ONE (10:30)
--- NOTE | 2018-08-27 10:32 | CONS ---
Assessment/Plan Assessment/Plan Hospital Course (Demo Recall) METASTATIC BREAST CANCER WITH PRIMARY ADENOCARCINOMA IN the left breast. MULTIPLE BONY METS, PULMONARY METS, LIVER METS CHEMO ON HOLD PT HAS A VERY GOOD RESPONSE TO CHEMO AND AI CONT AI FOR NOW CT ABD FOR RESTAGING- noted , stable OK TO DC Leucopenia- post chemo improved. DC NEUPOGEN Neutropenia with occasional fever and chills. agree with Holding discharge, until she is stable. Severe pain in the interscapular and lumbar sacral area most probably metastatic lesion possible femoral fracture. pathologic fracture of T9 with 60% of loss of height. Neurosurgical f-p Obesity. Weight loss 60 pounds during the last 2 years by diet PMS. Myopia. Anemia chronic disease with a drop of her hematocrit to 27 and regaining to 30 without any measures. Latest results 28. Protonix was added. Today hematocrit is 26. Will recheck tomorrow Anxiety disorder. Claustrophobia. Increase Ativan to 1 mg every 8 as needed at Lexapro 10 mg daily. Posttraumatic stress disorder. Pain in the left forearm with a history of fracture of ulna and radius. Tachycardia Hypoxemia at night marginal improved after 2 L of nasal cannula oxygen. Deconditioning Pain syndrome. Today the most painful zone is in the right hip area. X-ray did not show any fractures. Hyponatremia- resolved Hypoalbuminemia 2.4 now 2.7 Right sided cp after catheter insertion and correction less disco mfort. Decreased edema both lower extremities with hypotension-improving Swelling of the left forearm-persist. PLEURAL EFFUSIONS S/p R thoracentesis OK TO DC Consultation Date/Type/Reason Admit Date/Time Aug 22, 2018 at 20:16 Initial Consult Date 08/23/18 Type of Consult [facility] Requesting Provider: RUSS JEROME MD Date/Time of Note DATE: 08/27/18 TIME: 10:32 24 HR Interval Summary Free Text/Dictation al noted felling better Exam/Review of Systems Exam Vitals Vital Signs Date Temp Pulse Resp B/P (MAP) Pulse Ox O2 O2 Flow FiO2 Time Delivery Rate 08/27/18 114 18 133/97 92 Nasal 08:29 (109) Cannula 08/27/18 97.6 08:14 08/27/18 2.0 08:00 Intake and Output 08/26/18 08/26/18 08/27/18 1515:00 23:00 07:00 IntakeIntake Total 50 ml 800 ml 400 ml BalanceBalance 50 ml 800 ml 400 ml Exam Constitutional: alert, oriented, well developed, distress, frail, obese Psych: anxiety; No no complaints, No nl mood/affect, No confusion, No depression, No suicidal, No other Head: normocephalic, atraumatic; No lacerations, No hematomas, No other Eyes: EOMI, PERRL; No nl conjunctiva, No nl lids, No nl sclera, No icteric, No fundi, disc, No other ENMT: No nl external ears & nose, No nl lips & teeth, No nl nasal mucosa & septum, No mucosa pink and moist, No intubated, No tympanic membranes, No other Neck: bruits, nuchal rigidity; No supple, No non-tender, No jvd, No masses, No thyromegaly, No other Respiratory: normal air movement, congested cough, diminished breath sounds; No clear to auscultation, No crackles/rales, No intercostal retraction, No labored breathing, No respirations, No tactile fremitus, No wheezing, No other Cardiovascular: regular rate and rhythm, edema (left upper extremity forarm, very swollen.); No nl pulses, No bruits, No diastolic murmur, No gallop, No irregular rhythm, No jugular venous distention (JVD), No murmurs/extra sounds, No rub, No systolic murmur, No S3, No S4, No other Gastrointestinal: soft, bowel sounds, distended; No nl liver, spleen, No non-tender, No ascites, No firm, No hepatomegaly, No mass, No rebound or guarding, No splenomegaly, No surgical scars, No tender, No other Genitourinary - Female: nl adnexae, nl external genitalia Musculoskeletal: joint tenderness, muscle tone, muscle weakness; No nl extremities to inspection, No nl gait and stance, No range of motion, No spine non-tender, No swelling, No other Extremities: normal pulses, edema; No calf tenderness, No cyanosis, No clubbing, No pitting pedal edema, No palpable cord, No tenderness, No other 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: [employer]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, confused, numbness; No nl mental status, No nl speech, No nl strength, No DTR's symmetric, No focal weakness, No lethargic, No reflexes, No unresponsive, No other Skin: nl turgor; No rash or lesions, No diaphoresis, No ecchymosis, No laceration, No puncture, No other Lymph: No nl lymph nodes, No enlarged, No nontender, No other Results Result Diagram: 08/27/18 0545 08/24/18 0802 Results 24hrs Laboratory Tests Test 08/26/18 14:17 08/27/18 05:45 Troponin I < 0.012 Free Thyroxine 1.42 White Blood Count 12.9 #H Red Blood Count 3.46 L Hemoglobin 11.3 L Hematocrit 34.9 L Mean Corpuscular Volume 100.9 Mean Corpuscular Hemoglobin 32.7 Mean Corpuscular Hemoglobin Concent 32.4 Red Cell Distribution Width 15.6 H Platelet Count 104 L Mean Platelet Volume 11.0 H Immature Granulocytes % 1.100 H Neutrophils % 83.9 H Lymphocytes % 10.7 L Monocytes % 3.8 Eosinophils % 0.0 Basophils % 0.5 Nucleated Red Blood Cells % 0.0 Immature Granulocytes # 0.140 H Neutrophils # 10.9 H Lymphocytes # 1.4 Monocytes # 0.5 Eosinophils # 0.0 Basophils # 0.1 Nucleated Red Blood Cells # 0.0 Imaging Imaging PROCEDURE: CT Abdomen and pelvis with contrast. CLINICAL INDICATION: 58 year-old female restaging TECHNIQUE: Routine abdominopelvic CT following the administration of intravenous contrast. Coronal and sagittal reformats were provided. DICOM images are available. Contrast dose: 100 cc of Omnipaque 300. Oral contrast was not administered. Radiation dose: CTDI (mGy): 20.91 mGy and DLP(mGy-cm): 1237.66 mGy.cm One or more of the following dose reduction techniques were used: - Automated exposure control. - Adjustment of the mA and/or kV according to patient size. - Use of iterative reconstruction technique. COMPARISON: CT 08/22/2018. FINDINGS: Lower Thorax: Bilateral pleural effusions persist with extensive adjacent atelectasis. Respiratory motion blurs parenchymal detail of the aerated lungs. A central venous catheter extends into the right atrium and into the suprahepatic IVC. There is mild pericardial effusion, unchanged. Liver: There are multifocal hypoenhancing metastases in both the left and right hepatic lobes, with the largest focus in the right hepatic lobe segment 6 measuring up to 29 x 15 mm in transaxial dimensions. No focal mass lesion identified, allowing for absence of multiphase imaging. Biliary/gallbladder: Numerous calcified gallstones identified in the dependent gallbladder. No evidence of intra or extrahepatic biliary duct dilatation. Pancreas: Overall normal morphology and attenuation. No evidence of peripancreatic fluid or stranding. Stomach/Duodenum: The stomach is partially collapsed, but grossly unremarkable. Spleen: Normal in size and morphology without focal lesion. Adrenals: No adrenal masses identified. Kidneys: Overall symmetric shape, size, and attenuation. There is low attenuation rounded focus in the right mid to lower kidney. No evidence of obstructing urolithiasis or hydroureteronephrosis. Retroperitoneum: No evidence of aortic aneurysm. No evidence of retroperitoneal adenopathy. Mesentery/Peritoneum: No evidence of free fluid or air. No mesenteric adenopathy identified. Hollow viscera:Allowing for variable degrees of distension, the CT appearance of the bowel loops are unremarkable. Appendix is identified and normal. There is formed stool within the colonic loops. Pelvis/Reproductive organs: No pelvic masses or sidewall adenopathy identified. No free fluid identified in the pelvis. Musculoskeletal: There is diffuse sclerotic and lytic changes throughout the axial skeleton including the thoracolumbar spine, sacrum, iliac crests and acetabula, as well as the femurs, more severe in the right femoral head and ne ck. There is chronic fracture of the right femoral neck. Pathologic compression fractures identified at T8 and T10 levels without retropulsion. The visualized ribs, scapula and sternum are also involved with metastatic osseous disease. Anasarca is present. IMPRESSION: Multifocal hepatic metastases with hypo enhancing foci measuring up to 29 mm in the right hepatic lobe segment 6. Extensive mixed sclerotic and lytic osseous metastases, also identified on prior chest CTA and involving the axial and appendicular skeleton. Chronic fracture of the right femoral head and neck junction, which may be risk for repeat pathologic fracture due to degree of sclerotic and lytic changes in this region. Pathologic compression fractures identified at the T8 and T10 levels, unchanged from prior chest CT. Moderate and persistent bilateral pleural effusions and mild pericardial effusion. Central venous catheter extending beyond the right atrium into the suprahepatic IVC. Cholelithiasis. Medications Medication Current Medications Acetaminophen (Tylenol Tab) 500 mg Q6H PRN PO MILD PAIN(1-3)OR ELEVATED TEMP; Start 08/22/18 at 23:00 Anastrozole (Arimidex) 1 mg DAILY PO Last administered on 08/27/18 08:09; Admin Dose 1 MG; Start 08/23/18 at 09:00 Docusate Sodium (Colace) 200 mg BID PO Last administered on 08/27/18 08:04; Admin Dose 200 MG; Start 08/22/18 at 23:00 Escitalopram Oxalate (Lexapro) 10 mg DAILY PO Last administered on 08/27/18 08:04; Admin Dose 10 MG; Start 08/23/18 at 09:00 Magnesium Hydroxide (Milk Of Mag) 30 ml DAILY PO Last administered on 08/27/18 08:04; Admin Dose 30 ML; Start 08/23/18 at 09:00 Ondansetron HCl (Zofran Tab) 4 mg Q6H PRN PO NAUSEA AND/OR VOMITING Last administered on 08/27/18 08:34; Admin Dose 4 MG; Start 08/22/18 at 23:00 Pantoprazole (Protonix Tab) 40 mg AC BREAKFAST PO Last administered on 08/27/18 06:25; Admin Dose 40 MG; Start 08/23/18 at 07:00 Polyethylene Glycol (Miralax) 17 gm TID PO Last administered on 08/26/18 12:33; Admin Dose 17 GM; Start 08/23/18 at 09:00 Furosemide (Lasix) 40 mg BID DIURETICS IV Last administered on 08/27/18 06:22; Admin Dose 40 MG; Start 08/22/18 at 23:00 Potassium Chloride (Klor-Con 20) 20 meq DAILY PO Last administered on 08/27/18 08:04; Admin Dose 20 MEQ; Start 08/23/18 at 09:00 Oxycodone HCl (Oxycontin) 20 mg Q12 PO Last administered on 08/27/18 08:04; Admin Dose 20 MG; Start 08/23/18 at 09:00 Filgrastim (Neupogen) 300 mcg DAILY@1700 SC Last administered on 08/26/18 17:34; Admin Dose 300 MCG; Start 08/24/18 at 22:00 Carvedilol (Coreg) 6.25 mg BID PO Last administered on 08/27/18 08:06; Admin Dose 6.25 MG; Start 08/26/18 at 21:00 DES DUNAWAY MD Aug 27, 2018 10:32
[2018-08-27] MEDS ORDERED: SOD CHLORIDE 0.9% 100 ML ONE (12:38)
[2018-08-27] MEDS ORDERED: IOHEXOL 300MG/ML 150 ML BTL ONE (12:38)
--- NOTE | 2018-08-27 14:00 | PDOCDIS ---
Discharge Instructions DIAGNOSIS Discharge Diagnosis 1. Cancer of the left breast. Exact type at this time unknown.MULTIPLE BONY METS, PULMONARY METS 2. Severe pain in the interscapular and lumbar sacral area most probably metastatic lesion possible femoral fracture. pathologic fracture of T9 with 60% of loss of height. Neurosurgical f/u. 3. Obesity. 4. Weight loss 60 pounds during the last 2 years by diet 5. PMS. 6. Myopia. 7. Anemia chronic disease with a drop of her hematocrit to 27 and regaining to 30 without any measures. Latest results 28. Protonix was added. Today hem atocrit is 26. Will recheck tomorrow 8. Anxiety disorder. Claustrophobia. Increase Ativan to 1 mg every 8 as needed at Lexapro 10 mg daily. 9. Posttraumatic stress disorder. 10. Pain in the left forearm with a history of fracture of ulna and radius. 11. Tachycardia 12. Hypoxemia at night marginal improved after 2 L of nasal cannula oxygen. 13. Deconditioning 14. 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 15. Pain syndrome. Today the most painful zone is in the right hip area. X- ray did not show any fractures. 16. Hyponatremia- resolved 17. Leucopenia-improved. 18. Neutropenia with occasional fever and chills. Hold discharge, until she is stable. 19. Hypoalbuminemia 2.4 now 2.7 20.Right sided cp after catheter insertion and correction less discomfort. 21. Decreased edema both lower extremities with hypotension-improving 22.Swelling of the left forearm-persist. 23.S/p bilateral thoracentesis significant improvement on breathing no pneumothorax. CONDITION [id number] Patient Condition: [id number] Guarded HOME CARE INSTRUCTIONS: [id number] Diet Instructions: [id number] Reduced Calorie ACTIVITY: [id number] Activity Restrictions: [id number] Slowly Increase Activity [id number] Bathing Restrictions: [id number] Shower FOLLOW UP/APPOINTMENTS Follow-up Plan To be followed in a longterm facility in 1 week. To be followed by oncology service in 10 days. RUSS JEROME MD Aug 27, 2018 14:00
--- NOTE | 2018-08-27 14:02 | DS ---
Date/Time of Note Date/Time of Note DATE: 08/27/18 TIME: 14:00 Discharge Summary Admission/Discharge Info Admit Date/Time Aug 22, 2018 at 20:16 Discharge Date/Time August 27, 2018 at 14 00 Discharge Diagnosis 1. Cancer of the left breast. Exact type at this time unknown.MULTIPLE BONY METS, PULMONARY METS 2. Severe pain in the interscapular and lumbar sacral area most probably metastatic lesion possible femoral fracture. pathologic fracture of T9 with 60% of loss of height. Neurosurgical f/u. 3. Obesity. 4. Weight loss 60 pounds during the last 2 years by diet 5. PMS. 6. Myopia. 7. Anemia chronic disease with a drop of her hematocrit to 27 and regaining to 30 without any measures. Latest results 28. Protonix was added. Today hematocrit is 26. Will recheck tomorrow 8. Anxiety disorder. Claustrophobia. Increase Ativan to 1 mg every 8 as needed at Lexapro 10 mg daily. 9. Posttraumatic stress disorder. 10. Pain in the left forearm with a history of fracture of ulna and radius. 11. Tachycardia 12. Hypoxemia at night marginal improved after 2 L of nasal cannula oxygen. 13. Deconditioning 14. 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 15. Pain syndrome. Today the most painful zone is in the right hip area. X- ray did not show any fractures. 16. Hyponatremia- resolved 17. Leucopenia-improved. 18. Neutropenia with occasional fever and chills. Hold discharge, until she is stable. 19. Hypoalbuminemia 2.4 now 2.7 20.Right sided cp after catheter insertion and correction less dis comfort. 21. Decreased edema both lower extremities with hypotension-improving 22.Swelling of the left forearm-persist. 23.S/p bilateral thoracentesis significant improvement on breathing no pneumothorax. Patient Condition: Guarded Hx of Present Illness Severe weakness getting tired very easily. Dry cough. Edema all over the body. Hospital Course After bilateral thoracentesis bradycardia improved after putting left upper extremity in. Higher than heart level edema decreased. Condition not improved. Her main problem metastatic cancer of the breast will be managed by oncology service. I refilled the patient [facility]. Home Meds Reported Medications Ondansetron Hcl* (Zofran*) 4 Mg Tab, 4 MG PO Q6H PRN for NAUSEA AND OR VOMITING, TAB 08/22/18 Amino Acids/Protein Hydrolys (Pro-Stat Awc Liquid) 30 Ml Liquid, 15 ML PO TID 08/22/18 Pantoprazole* (Pantoprazole*) 40 Mg Tablet.dr, 40 MG PO AC BREAKFAST, TAB 08/22/18 Oxycodone Hcl* (Oxycontin*) 20 Mg Tab.er.12h, 20 MG PO Q12, TAB 08/22/18 Amlodipine Besylate* (Norvasc*) 5 Mg Tablet, 5 MG PO BID, TAB HOLD FOR SBP <110. 08/22/18 Naloxegol Oxalate (Movantik) 12.5 Mg Tablet, 12.5 MG PO BID, TAB 08/22/18 Polyethylene Glycol* (Miralax*) 17 Gm Powd.pack, 17 GM PO TID, #60 PACKET 08/22/18 Magnesium Hydroxide* (Milk Of Magnesia*) 400 Mg/5 Ml Oral.susp, 30 ML PO DAILY, ML 08/22/18 Escitalopram Oxalate* (Lexapro*) 10 Mg Tablet, 10 MG PO DAILY, #30 TAB 08/22/18 Furosemide* (Furosemide*) 20 Mg Tablet, 20 MG PO DAILY, #60 TAB HOLD FOR SBP <110. 08/22/18 Docusate Sodium* (Colace*) 100 Mg Capsule, 200 MG PO BID, #60 CAP 08/22/18 Carvedilol* (Carvedilol*) 3.125 Mg Tablet, 3.125 MG PO BID, #60 TAB HOLD FOR SBP <[address] <60. GIVE WITH FOOD. 08/22/18 Lactose-Free Food (Boost High Protein) 237 Ml Liquid, 120 ML PO BID 08/22/18 Benazepril Hcl* (Benazepril Hcl*) 5 Mg Tablet, 5 MG PO BID, #60 TAB HOLD FOR SBP <110. 08/22/18 Anastrozole* (Arimidex*) 1 Mg Tablet, 1 MG PO DAILY, #30 TAB 08/22/18 Acetaminophen* (Acetaminophen*) 500 MG Extra Strength Tablet, 500 MG PO Q6H PRN for PAIN AND OR ELEVATED TEMP, TAB 08/22/18 Discontinued Reported Medications Zolpidem Tartrate* (Ambien*) 10 Mg Tablet, 10 MG PO QHS PRN for INSOMNIA, TAB 3/7/19 Discontinued Scripts Polyethylene Glycol* (Miralax*) 17 Gm Powd.pack, 17 GM PO BID for 30 Days, #60 BOTTLE Prov:RUSS JEROME MD 05/30/18 Magnesium Hydroxide* (Steinberg' MOM*) 30 Ml Susp, 30 ML PO DAILY PRN for CONSTIPATION for 14 Days, #20 CAP.EC Prov:RUSS JEROME MD 05/30/18 Docusate Sodium (Dok) 100 Mg Capsule, 200 MG PO BID for 30 Days, #60 CAP Prov:RUSS JEROME MD 05/30/18 Oxycodone Hcl* (Oxycontin*) 20 Mg Tab.er.12h, 20 MG PO BID for 30 Days, #60 TAB Prov:RUSS JEROME MD 05/30/18 Zolpidem Tartrate (Ambien Hector) 5 Mg Tablet, 10 MG PO HS PRN for INSOMNIA for 30 Days, #30 TAB Prov:RUSS JEROME MD 05/30/18 Lorazepam* (Ativan*) 0.5 Mg Tablet, 0.5 MG PO TID PRN for ANXIETY for 30 Days, #30 TAB Prov:RUSS JEROME MD 05/30/18 Acetaminophen* (Tylenol*) 500 Mg Tab, 500 MG PO Q6H PRN for MILD PAIN(1-3)OR ELEVATED TEMP for 30 Days, #120 TAB Prov:RUSS JEROME MD 05/30/18 Benazepril Hcl* (Benazepril Hcl*) 5 Mg Tablet, 5 MG PO BID for 30 Days, #30 TAB Prov:RUSS JEROME MD 05/30/18 Amlodipine Besylate* (Amlodipine Besylate*) 5 Mg Tablet, 5 MG PO BID for 30 Days, #60 TAB Prov:RUSS JEROME MD 05/30/18 Anastrozole* (Arimidex*) 1 Mg Tablet, 1 MG PO DAILY for 30 Days, #30 TAB Prov:RUSS JEROME MD 05/30/18 Follow-up Plan [facility] be followed [facility] a [facility] 1 week. To be followed by oncology service in 10 days. Primary Care Provider Care Physician No Primary Pending Labs Laboratory Tests Test 08/26/18 14:17 08/27/18 05:45 Troponin I < 0.012 ng/ml (0.000-0.120) Free Thyroxine 1.42 ng/dl (0.64-1.79) White Blood Count 12.9 10^3/ul (4.8-10.8) Red Blood Count 3.46 10^6/ul (4.20-5.40) Hemoglobin 11.3 g/dl (12.0-16.0) Hematocrit 34.9 % (37.0-47.0) Mean Corpuscular Volume 100.9 fl (82.0-101.0) Mean Corpuscular 32.7 pg (29.0-33.0) Hemoglobin Mean Corpuscular 32.4 g/dl (32.0-37.0) Hemoglobin Concent Red Cell Distribution 15.6 % (11.5-14.5) Width Platelet Count 104 10^3/UL (140-415) Mean Platelet Volume 11.0 fl (7.4-10.4) Immature Granulocytes % 1.100 % (0.001-0.429) Neutrophils % 83.9 % (39.0-77.0) Lymphocytes % 10.7 % (15.0-51.0) Monocytes % 3.8 % (0.0-11.0) Eosinophils % 0.0 % (0.0-7.0) Basophils % 0.5 % (0.0-2.0) Nucleated Red Blood Cells 0.0 /100WBC (0.0-0.0) % Immature Granulocytes # 0.140 10^3/ul (0.0-0.031) Neutrophils # 10.9 10^3/ul (1.6-7.5) Lymphocytes # 1.4 10^3/ul (0.8-2.9) Monocytes # 0.5 10^3/ul (0.3-0.9) Eosinophils # 0.0 10^3/ul (0.0-0.5) Basophils # 0.1 10^3/ul (0.0-0.1) Nucleated Red Blood Cells 0.0 10^3/ul (0.0-0.0) RUSS LÓPEZ MD Aug 27, 2018 14:02
[2018-08-27] MEDS: FILGRASTIM 300 MCG INJ SC SCH (17:33)
== END 2018-08-27 18:46 | DRG 597 ==
LOC: E/R 16:29 → TEL 20:16
PROVIDERS: ADMIT Family Medicine; ATTEND Family Medicine
PROC: 4A033R1 Measurement of Arterial Saturation, Peripheral, Percutaneous Approach (ICD-10-PCS; 2018-08-22)
PROC: 0W993ZZ Drainage of Right Pleural Cavity, Percutaneous Approach (ICD-10-PCS; principal; 2018-08-23)
PROC: 0W9B3ZZ Drainage of Left Pleural Cavity, Percutaneous Approach (ICD-10-PCS; 2018-08-24)
PROC: 3E0234Z Introduction of Serum, Toxoid and Vaccine into Muscle, Percutaneous Approach (ICD-10-PCS; 2018-08-27)
DX: C50.912 Malignant neoplasm of unspecified site of left female breast (principal); I50.33 Acute on chronic diastolic (congestive) heart failure; C79.51 Secondary malignant neoplasm of bone; C78.7 Secondary malignant neoplasm of liver and intrahepatic bile duct; C78.00 Secondary malignant neoplasm of unspecified lung; J90 Pleural effusion, not elsewhere classified; E87.1 Hypo-osmolality and hyponatremia; M48.54XA Collapsed vertebra, not elsewhere classified, thoracic region, initial encounter for fracture; M84.559A Pathological fracture in neoplastic disease, hip, unspecified, initial encounter for fracture; D69.6 Thrombocytopenia, unspecified; D63.8 Anemia in other chronic diseases classified elsewhere; F41.9 Anxiety disorder, unspecified; F43.10 Post-traumatic stress disorder, unspecified; Z23 Encounter for immunization; R00.0 Tachycardia, unspecified; I11.0 Hypertensive heart disease with heart failure; E66.9 Obesity, unspecified; Z68.36 Body mass index [BMI] 36.0-36.9, adult; H52.10 Myopia, unspecified eye; D70.9 Neutropenia, unspecified; E88.09 Other disorders of plasma-protein metabolism, not elsewhere classified; I25.10 Atherosclerotic heart disease of native coronary artery without angina pectoris; E78.00 Pure hypercholesterolemia, unspecified; K21.9 Gastro-esophageal reflux disease without esophagitis; Z85.3 Personal history of malignant neoplasm of breast; M79.632 Pain in left forearm
CPT/HCPCS: 36415; 36600; 71045; 71275; 73510; 73600; 74177; 76705; 76942; 80048; 80053; 80202; 82042; 82550; 82553; 82803; 83540; 83605; 83690; 83735; 83880; 84439; 84443; 84484; 85025; 85610; 85730; 87040; 87070; 87102; 87116; 88104; 88305; 88341; 88342; 89051; 90686; 93005; 93306; 93971; 96374; 96375; J1940; J1956; J3370; J3475; J7050; Q9967

== ENCOUNTER 2018-09-09 13:05 | Inpatient (IN) | payer OTHER ==
[~2018-09-09] VITALS: Ht 158.8 cm; Wt 92.1 kg
[~2018-09-09 13:05] MED LIST changes: +ACET-141 PO; +AMIN30LI5 PO; -AMLO-145 PO; +AMLO5TAB4 PO; +CARV3.1260 PO; +DOCU-144 PO; -DOCU-216 PO; +ESCI10TA PO; +FURO20TA3 PO; -LORA-441 PO; +MAGN400O19 PO; +NALO12.5 PO; +ONDA4TAB13 PO; +PANT40TA4 PO; -TYL500 PO; -UDMOM PO; -ZOLP5TAB PO; +[UNRECOGNIZED DRUG - CODE] PO
[2018-09-09 13:10] VITALS: Ht 158.8 cm; Wt 92.1 kg
--- NOTE | 2018-09-09 13:37 | ERD ---
ER Documentation Chief Complaint Chief Complaint Shortness of breath HPI 58-year-old female history of adenocarcinoma of the left breast metastatic with pulmonary, hepatic and bony metastases on chemotherapy, pleural effusions, neut ropenia, anemia and swelling of the left arm and right leg referred to the ED by her PMD Dr. Morrissey for evaluation of worsening shortness of breath, left upper extremity and right lower extremity pain and swelling. Patient complains of a one-week history of worsening shortness of breath denies chest pain or palpitations. No URI symptoms or cough. Denies abdominal pain, nausea or vomiting. Chronic swelling of the left upper and right lower extremities which has been worsening significantly recently but no pain. No fevers or chills. ROS All systems reviewed and are negative except as per history of present illness. Medications Home Meds Reported Medications Potassium Chloride* (Potassium Chloride*) 20 Meq Tablet.er, 20 MEQ PO DAILY, TAB.SA 09/09/18 Epoetin Cr (Procrit) 4,000 Unit/1 Ml Vial, 4000 UNIT IJ Q SUN, VIAL 7:00AM-7:00PM,HOLD IF HGB>10 09/09/18 Ondansetron Hcl* (Zofran*) 4 Mg Tab, 4 MG PO Q6H PRN for NAUSEA AND OR VOMITING, TAB 08/22/18 Pantoprazole* (Pantoprazole*) 40 Mg Tablet.dr, 40 MG PO AC BREAKFAST, TAB 08/22/18 Oxycodone Hcl* (Oxycontin*) 20 Mg Tab.er.12h, 20 MG PO Q12, TAB 08/22/18 Amlodipine Besylate* (Norvasc*) 5 Mg Tablet, 5 MG PO BID, TAB HOLD FOR SBP <110. 08/22/18 Polyethylene Glycol* (Miralax*) 17 Gm Powd.pack, 17 GM PO BID, #60 PACKET ON -12:00 TO 4:00PM 08/22/18 Magnesium Hydroxide* (Milk Of Magnesia*) 400 Mg/5 Ml Oral.susp, 30 ML PO DAILY, ML 08/22/18 Escitalopram Oxalate* (Lexapro*) 10 Mg Tablet, 10 MG PO DAILY, #30 TAB 08/22/18 Furosemide* (Furosemide*) 20 Mg Tablet, 20 MG PO DAILY, #60 TAB HOLD FOR SBP <110. 08/22/18 Docusate Sodium* (Colace*) 100 Mg Capsule, 200 MG PO BID, #60 CAP 08/22/18 Carvedilol* (Carvedilol*) 3.125 Mg Tablet, 3.125 MG PO BID, #60 TAB HOLD FOR SBP <110 OR SD <60. GIVE WITH FOOD. 08/22/18 Lactose-Free Food (Boost High Protein) 237 Ml Liquid, 120 ML PO BID 08/22/18 Benazepril Hcl* (Benazepril Hcl*) 5 Mg Tablet, 5 MG PO BID, #60 TAB HOLD FOR SBP <110. 08/22/18 Anastrozole* (Arimidex*) 1 Mg Tablet, 1 MG PO DAILY, #30 TAB 08/22/18 Acetaminophen* (Acetaminophen*) 500 MG Extra Strength Tablet, 500 MG PO Q6H PRN for PAIN AND OR ELEVATED TEMP, TAB 08/22/18 Allergies Allergies: Coded Allergies: No Known Allergy (Unverified , 09/09/18) PMhx/Soc Reviewed in chart. As per HPI. History of Surgery: No Anesthesia Reaction: No Hx 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 Disorder: No Hx Respiratory Disorders: Yes (PNA) Hx Cardiac Disorders: Yes (CHF) Hx Psychiatric Problems: No Hx Miscellaneous Medical Probl: Yes (Breast CA mets to bones) Hx Alcohol Use: No Hx Substance Use: No Hx Tobacco Use: No FmHx No family history relevant to presenting complaint. Physical Exam Vitals Temperature: 98.5. Pulse: 110. Respirations: 20. Blood pressure 107/74. O2 saturation 99%. Physical Exam Const: Alert, ill-appearing, anxious in moderate distress. Head: Alopecia. Eyes: Pupils equal reactive to light, extraocular movements are intact. Anicteric. Normal Conjunctiva ENT: Normal External Ears, Nose and Mouth. Pharynx is clear. Mucous membranes are dry. Neck: Full range of motion. Nontender. No JVD. No meningismus. Resp: Markedly diminished breath sounds left lung field the right is clear. Cardio: Tachycardic. Regular rate and rhythm, no murmurs Chest Wall: Right Port-A-Cath. No tenderness or swelling. Abd: Soft, obese, non tender, non distended. No rebound or guarding. Normal bowel sounds Skin: No petechiae or rashes Back: No midline or flank tenderness Ext: Left upper extremity: 3+ swelling with erythema and diffuse tenderness. Right lower extremity: 4+ swelling with erythema and tenderness. Distal pulses are intact. Neur: Awake and alert. Cranial nerves II through XII are grossly intact. No focal deficit. Psych: Anxious but not depressed. Result Diagram: 09/16/18 0537 09/16/18 1825 Results 24 hrs Laboratory Tests Test 09/09/18 13:55 White Blood Count 1.2 10^3/ul Red Blood Count 3.56 10^6/ul Hemoglobin 11.5 g/dl Hematocrit 35.1 % Mean Corpuscular Volume 98.6 fl Mean Corpuscular Hemoglobin 32.3 pg Mean Corpuscular Hemoglobin Concent 32.8 g/dl Red Cell Distribution Width 15.2 % Platelet Count 89 10^3/UL Mean Platelet Volume 9.7 fl Immature Granulocytes % 0.000 % Neutrophils % % Segmented Neutrophils % (Manual) 23 % Band Neutrophils % (Manual) 8 % Lymphocytes % % Lymphocytes % (Manual) 48 % Reactive Lymphocytes % (Manual) 5 % Monocytes % % Monocytes % (Manual) 15 % Eosinophils % % Basophils % % Metamyelocytes % (manual) 1 % Nucleated Red Blood Cells % 1 % Immature Granulocytes # 0.000 10^3/ul Neutrophils # 10^3/ul Neutrophils # (Manual) 0.3 10^3/ul Band Neutrophils # 0.0 10^3/ul Lymphocytes (Manual) 0.5 10^3/ul Lymphocytes # 10^3/ul Reactive Lymphocytes # 0.0 10^3/ul Monocytes # 10^3/ul Monocytes # (Manual) 0.1 10^3/ul Eosinophils # 10^3/ul Basophils # 10^3/ul Metamyelocytes # 0.0 10^3/ul Nucleated Red Blood Cells # 10^3/ul Platelet Estimate DECREASED Polychromasia 3+ Anisocytosis 1+ Microcytosis 1+ Prothrombin Time 13.5 Sec Prothrombin Time Ratio 1.1 INR International Normalized Ratio 1.02 Activated Partial Thromboplast Time Sec Path Consult Signing Pathologist ALAINA SHIPMAN MD Sodium Level 135 mmol/L Potassium Level 4.5 mmol/L Chloride Level 103 mmol/L Carbon Dioxide Level 26 mmol/L Anion Gap 6 Blood Urea Nitrogen 13 mg/dl Creatinine 0.51 mg/dl Est Glomerular Filtrat Rate mL/min > 60 mL/min Glucose Level 121 mg/dl Calcium Level 8.5 mg/dl Total Bilirubin 0.6 mg/dl Direct Bilirubin 0.00 mg/dl Indirect Bilirubin 0.6 mg/dl Aspartate Amino Transf (AST/SGOT) 39 IU/L Alanine Aminotransferase (ALT/SGPT) 23 IU/L Alkaline Phosphatase 73 IU/L Total Protein 5.3 g/dl Albumin 2.7 g/dl Globulin 2.60 g/dl Albumin/Globulin Ratio 1.03 Current Medications Medications Dose Sig/Diana Start Time Status Last (Trade) Ordered Route PRN Stop Time Admin Dose Reason Admin Morphine 4 mg ONCE STAT 09/09/18 DC 09/09/18 Sulfate IV 14:51 15:15 (morphine) 09/09/18 14:52 Ondansetron 4 mg ONCE STAT 09/09/18 DC 09/09/18 HCl (Zofran IV 14:51 15:14 Inj) 09/09/18 14:52 Procedures/MDM DOCUMENTS REVIEWED: ED nurse, prior ED, prior records EKG: Time: 13:57. Sinus rhythm. Ventricular rate 95. Borderline prolonged SD interval of 204 ms. Normal QRS. Low voltage QRS. Poor R wave progression. No ectopy. No acute ST segment elevation or depression. My Interpretation IMAGING: PROCEDURE: XR Chest. CLINICAL INDICATION: chest pain TECHNIQUE: Single frontal view of the chest was obtained COMPARISON: DR GONSALVES 08/24/2018 FINDINGS: There is moderate cardiomegaly. There is a right-sided Port-A-Cath in place. There is a moderate left pleural effusion with left upper lobe and left lower lobe atelectasis. There is no pneumothorax. RPTAT: AA IMPRESSION: Moderate cardiomegaly. Moderate left pleural effusion with left upper lobe and left lower lobe atelectatic changes. .Britton Arenas MD, MD Date Time Venous Doppler of the left upper extremity and right lower extremity are negative for DVT. MEDICAL DECISION MAKIN-year-old female history of adenocarcinoma of the left breast metastatic with pulmonary, hepatic and bony metastases on chemotherapy, pleural effusions, neutropenia, anemia and swelling of the left arm and right leg referred to the ED by her PMD Dr. Morrissey for evaluation of worsening shortness of breath, left upper extremity and right lower extremity pain and swelling. CBC significant for leukopenia, thrombocytopenia and mild anemia. Chemistry negative for renal insufficiency or electrolyte abnormalities. Chest x-ray reveals moderate left pleural effusion thoracentesis has been ordered. EKG is negative for ischemia or dysrhythmia with low voltage QRS no electrical alternans. Further evaluation with echocardiogram to rule out pericardial effusion would be prudent but no clinical evidence of tamponade. Tachycardia and leukopenia consistent with systemic inflammatory response syndrome. No signs of occult infectious process. No fever but leukopenia with a low absolute neutrophil count and antibiotics ordered pending cultures. Doppler negative for DVT. Worsening shortness of breath is likely secondary to pleural effusion but it does not significantly improved further evaluation for pulmonary embolism with CT pulmonary angiogram should be considered. No ischemic EKG changes, elevated troponin or symptoms of acute coronary syndrome. Admit to med/surg for further evaluation and management. PATIENT CARE TRANSITIONED: Time: 14:48, Dr. Morrissey. Recommends admission to [facility] and thoracentesis which has been ordered. Counseled patient regarding diagnosis, diagnostic results and plan for admission. Departure Diagnosis: Primary Impression: Acute dyspnea Additional Impressions: Pleural effusion, left Metastatic breast cancer Systemic inflammatory response syndrome Neutropenia Neutropenia type: unspecified Qualified Codes: D70.9 - Neutropenia, unspecified Swelling of left upper extremity Swelling of right lower extremity Port-A-Cath in place Condition: Serious FELICITA REES MD Sep 09, 2018 13:37
[2018-09-09] MEDS ORDERED: morphine 4 MG/ML VIAL IV STA (14:51)
[2018-09-09] MEDS ORDERED: ONDANSETRON 4 MG INJ IV STA (14:51)
[2018-09-09] MEDS ORDERED: ACETAMINOPHEN 325 MG TAB PO PRN (15:00)
[2018-09-09] MEDS ORDERED: ONDANSETRON 4 MG INJ IV PRN (15:00)
[2018-09-09] MEDS ORDERED: POTA20TA96 PO (15:33)
[2018-09-09] MEDS ORDERED: EPOE40009 IJ (15:33)
[2018-09-09] MEDS ORDERED: CEFEPIME 2GM/50 ML (PMX) 50 ML IVPB STA (15:55)
[2018-09-09] MEDS ORDERED: SODIUM CHLORIDE 0.9% 1L BAG IV* STA (15:55)
[2018-09-09] MEDS ORDERED: VANCOMYCIN 1 GM (PMX) 250 ML IVPB ONE (16:00)
[2018-09-09] MEDS ORDERED: LIDOCAINE 1% (MPF) 5 ML VIAL ONE (16:14)
[2018-09-09 21:40] VITALS: BP 111/87; PULSE 80; RESP 18
[2018-09-09] MEDS: BENAZEPRIL 5 MG TAB PO SCH (22:30)
[2018-09-09] MEDS: AMLODIPINE 5 MG TAB PO SCH (22:30)
[2018-09-09] MEDS: DOCUSATE SODIUM 100 MG CAP PO SCH (22:42)
[2018-09-09] MEDS: oxyCODONE (CR) 20 MG TAB [oxyCONTIN] PO SCH (22:43)
[2018-09-09] MEDS: POLYETHYLENE GLYCOL 17 GM PACKET PO SCH (22:43)
--- NOTE | 2018-09-09 23:19 | CONS ---
Assessment/Plan Assessment/Plan Hospital Course (Demo Recall) METASTATIC BREAST CANCER WITH PRIMARY ADENOCARCINOMA IN the left breast. MULTIPLE BONY METS, PULMONARY METS, LIVER METS CHEMO ON HOLD PT HAS A VERY GOOD RESPONSE TO CHEMO AND AI CONT AI FOR NOW CT ABD FOR RESTAGING 08.27.18- noted , stable Leucopenia- post chemo NEUPOGEN monitor closely post Neutropenia with occasional fever and chills. Anemia chronic disease SOB PLEURAL EFFUSIONS thoracentesis Fluid overload diuretic cardiology consult Severe pain in the interscapular and lumbar sacral area most probably metastatic lesion possible femoral fracture. pathologic fracture of T9 with 60% of loss of height. Obesity. Weight loss 60 pounds during the last 2 years PMS. Myopia. Anxiety disorder. Claustrophobia. Posttraumatic stress disorder. Pain in the left forearm with a history of fracture of ulna and radius. Tachycardia Hypoxemia at night marginal improved after 2 L of nasal cannula oxygen. Deconditioning Pain syndrome. Today the most painful zone is in the right hip area. X-ray did not show any fractures. Hyponatremia- resolved Hypoalbuminemia Right sided cp after catheter insertion and correction less discomfort. Decreased edema both lower extremities with hypotension-improving Swelling of the left forearm-persist. Consultation Date/Type/Reason Admit Date/Time Sep 09, 2018 at 14:53 Date of Consultation: Sep 09, 2018 Type of Consult [facility] Reason for Consultation breast cancer Requesting Provider: RUSS JEROME MD Date/Time of Note DATE: 09/09/18 TIME: 23:18 Past Medical History Home Meds Reported Medications Potassium Chloride* (Potassium Chloride*) 20 Meq Tablet.er, 20 MEQ PO DAILY, TAB.SA 09/09/18 Epoetin Cr (Procrit) 4,000 Unit/1 Ml Vial, 4000 UNIT IJ Q FRI, VIAL 7:00AM-7:00PM,HOLD IF HGB>10 09/09/18 Ondansetron Hcl* (Zofran*) 4 Mg Tab, 4 MG PO Q6H PRN for NAUSEA AND OR VOMITING, TAB 08/22/18 Pantoprazole* (Pantoprazole*) 40 Mg Tablet.dr, 40 MG PO AC BREAKFAST, TAB 08/22/18 Oxycodone Hcl* (Oxycontin*) 20 Mg Tab.er.12h, 20 MG PO Q12, TAB 08/22/18 Amlodipine Besylate* (Norvasc*) 5 Mg Tablet, 5 MG PO BID, TAB HOLD FOR SBP <110. 08/22/18 Polyethylene Glycol* (Miralax*) 17 Gm Powd.pack, 17 GM PO BID, #60 PACKET ON -12:00 TO 4:00PM 08/22/18 Magnesium Hydroxide* (Milk Of Magnesia*) 400 Mg/5 Ml Oral.susp, 30 ML PO DAILY, ML 08/22/18 Escitalopram Oxalate* (Lexapro*) 10 Mg Tablet, 10 MG PO DAILY, #30 TAB 08/22/18 Furosemide* (Furosemide*) 20 Mg Tablet, 20 MG PO DAILY, #60 TAB HOLD FOR SBP <110. 08/22/18 Docusate Sodium* (Colace*) 100 Mg Capsule, 200 MG PO BID, #60 CAP 08/22/18 Carvedilol* (Carvedilol*) 3.125 Mg Tablet, 3.125 MG PO BID, #60 TAB HOLD FOR SBP <110 OR MN <60. GIVE WITH FOOD. 08/22/18 Lactose-Free Food (Boost High Protein) 237 Ml Liquid, 120 ML PO BID 08/22/18 Benazepril Hcl* (Benazepril Hcl*) 5 Mg Tablet, 5 MG PO BID, #60 TAB HOLD FOR SBP <110. 08/22/18 Anastrozole* (Arimidex*) 1 Mg Tablet, 1 MG PO DAILY, #30 TAB 08/22/18 Acetaminophen* (Acetaminophen*) 500 MG Extra Strength Tablet, 500 MG PO Q6H PRN for PAIN AND OR ELEVATED TEMP, TAB 08/22/18 Discontinued Reported Medications Amino Acids/Protein Hydrolys (Pro-Stat Awc Liquid) 30 Ml Liquid, 15 ML PO TID 08/22/18 Naloxegol Oxalate (Movantik) 12.5 Mg Tablet, 12.5 MG PO BID, TAB 08/22/18 Medications Current Medications Ondansetron HCl (Zofran Inj) 4 mg BRIDGE ORDER PRN IV NAUSEA/VOMITING; Start 09/09/18 at 15:00; Stop 09/10/18 at 14:59 Acetaminophen (Tylenol Tab) 650 mg ER BRIDGE PRN PO .MILD PAIN 1-3 OR TEMP; Start 09/09/18 at 15:00; Stop 09/10/18 at 14:59 Acetaminophen (Tylenol Tab) 500 mg Q6H PRN PO MILD PAIN(1-3)OR ELEVATED TEMP; Start 09/09/18 at 22:30 Amlodipine Besylate (Norvasc) 5 mg BID PO ; Start 09/09/18 at 22:30 Anastrozole (Arimidex) 1 mg DAILY PO ; Start 09/10/18 at 09:00 Benazepril HCl (Lotensin) 5 mg BID PO ; Start 09/09/18 at 22:30 Carvedilol (Coreg) 3.125 mg BID PO ; Start 09/09/18 at 22:30 Docusate Sodium (Colace) 200 mg BID PO Last administered on 09/09/18at 22:42; Admin Dose 200 MG; Start 09/09/18 at 22:30 Escitalopram Oxalate (Lexapro) 10 mg DAILY PO ; Start 09/10/18 at 09:00 Furosemide (Lasix) 20 mg DAILY PO ; Start 09/10/18 at 09:00 Magnesium Hydroxide (Milk Of Mag) 30 ml DAILY PO ; Start 09/10/18 at 09:00 Ondansetron HCl (Zofran Tab) 4 mg Q6H PRN PO NAUSEA AND/OR VOMITING; Start 09/09/18 at 22:30 Oxycodone HCl (Oxycontin) 20 mg Q12 PO Last administered on 09/09/18at 22:43; Admin Dose 20 MG; Start 09/09/18 at 22:30 Pantoprazole (Protonix Tab) 40 mg AC BREAKFAST PO ; Start 09/10/18 at 07:00 Polyethylene Glycol (Miralax) 17 gm BID PO Last administered on 09/09/18at 22:43; Admin Dose 17 GM; Start 09/09/18 at 22:30 Potassium Chloride (Klor-Con 20) 20 meq DAILY PO ; Start 09/10/18 at 09:00 Allergies: Coded Allergies: No Known Allergy (Unverified , 09/09/18) Past Surgical History Past Surgical Hx: no surgical history Social History Smoking Status: Never smoker Exam/Review of Systems Exam Vitals Vital Signs Date Temp Pulse Resp B/P (MAP) Pulse Ox O2 O2 Flow FiO2 Time Delivery Rate 09/09/18 100 19 140/100 99 Room Air 20:48 (113) 09/09/18 2 15:23 09/09/18 98.3 13:29 Exam Constitutional: alert, oriented, well developed, distress, frail, other (She is making heroic efforts to be able to sit up stand gait is unstable.); No non-verbal Psych: anxiety, depression; No no complaints, No nl mood/affect, No confusion, No suicidal, No other Head: normocephalic, atraumatic; No lacerations, No hematomas, No other Eyes: EOMI, PERRL; No nl conjunctiva, No nl lids, No nl sclera, No icteric, No fundi, disc, No other ENMT: tympanic membranes; No nl external ears & nose, No nl lips & teeth, No nl nasal mucosa & septum, No mucosa pink and moist, No intubated, No other Neck: bruits, nuchal rigidity; No supple, No non-tender, No jvd, No masses, No thyromegaly, No other Respiratory: normal air movement, crackles/rales, diminished breath sounds; No clear to auscultation, No congested cough, No intercostal retraction, No labored breathing, No respirations, No tactile fremitus, No wheezing, No other Cardiovascular: bruits, edema (Right more than left lower extremity pitting edema left upper extremity lymphedema and cellulitis with redness of the dorsum from shoulder to dorsum of the palm area.), murmurs/extra sounds, systolic murmur; No regular rate and rhythm, No nl pulses, No diastolic murmur, No gallop, No irregular rhythm, No jugular venous distention (JVD), No rub, No S3, No S4, No other Gastrointestinal: soft, bowel sounds, distended; No nl liver, spleen, No non-tender, No ascites, No firm, No hepatomegaly, No mass, No rebound or guarding, No splenomegaly, No surgical scars, No tender, No other Genitourinary - Female: No nl adnexae, No nl external genitalia, No CMT, No CVA tenderness, No uterus, No other Musculoskeletal: joint tenderness, muscle tone, muscle weakness; No nl extremities to inspection, No nl gait and stance, No range of motion, No spine non-tender, No swelling, No other 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: 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 Ventral collar of the left breast it is more brownish darker comparing to the right with a palpable masses.); No rash or lesions, No diaphoresis, No ecchymosis, No laceration, No puncture ext- 2+ edema Results Result Diagram: 09/09/18 1355 09/09/18 1355 Results 24hrs Laboratory Tests Test 09/09/18 13:55 09/09/18 17:16 White Blood Count 1.2 #L Red Blood Count 3.56 L Hemoglobin 11.5 L Hematocrit 35.1 L Mean Corpuscular Volume 98.6 Mean Corpuscular Hemoglobin 32.3 Mean Corpuscular Hemoglobin Concent 32.8 Red Cell Distribution Width 15.2 H Platelet Count 89 L Mean Platelet Volume 9.7 Immature Granulocytes % 0.000 L Neutrophils % Segmented Neutrophils % (Manual) 23 L Band Neutrophils % (Manual) 8 H Lymphocytes % Lymphocytes % (Manual) 48 Reactive Lymphocytes % (Manual) 5 H Monocytes % Monocytes % (Manual) 15 H Eosinophils % Basophils % Metamyelocytes % (manual) 1 H Nucleated Red Blood Cells % 1 H Immature Granulocytes # 0.000 Neutrophils # Neutrophils # (Manual) 0.3 L Band Neutrophils # 0.0 Lymphocytes (Manual) 0.5 L Lymphocytes # Reactive Lymphocytes # 0.0 Monocytes # Monocytes # (Manual) 0.1 L Eosinophils # Basophils # Metamyelocytes # 0.0 Nucleated Red Blood Cells # Platelet Estimate DECREASED Polychromasia 3+ Anisocytosis 1+ Microcytosis 1+ Prothrombin Time 13.5 Prothrombin Time Ratio 1.1 INR International Normalized Ratio 1.02 Activated Partial Thromboplast Time Path Consult Signing Pathologist ALAINA SHIPMAN MD Sodium Level 135 Potassium Level 4.5 Chloride Level 103 Carbon Dioxide Level 26 Anion Gap 6 Blood Urea Nitrogen 13 Creatinine 0.51 Est Glomerular Filtrat Rate mL/min > 60 Glucose Level 121 Calcium Level 8.5 Total Bilirubin 0.6 Direct Bilirubin 0.00 Indirect Bilirubin 0.6 Aspartate Amino Transf (AST/SGOT) 39 Alanine Aminotransferase (ALT/SGPT) 23 Alkaline Phosphatase 73 Total Protein 5.3 L Albumin 2.7 L Globulin 2.60 Albumin/Globulin Ratio 1.03 Lactic Acid Level 1.3 Medications Medication Current Medications Ondansetron HCl (Zofran Inj) 4 mg BRIDGE ORDER PRN IV NAUSEA/VOMITING; Start 09/09/18 at 15:00; Stop 09/10/18 at 14:59 Acetaminophen (Tylenol Tab) 650 mg ER BRIDGE PRN PO .MILD PAIN 1-3 OR TEMP; Start 09/09/18 at 15:00; Stop 09/10/18 at 14:59 Acetaminophen (Tylenol Tab) 500 mg Q6H PRN PO MILD PAIN(1-3)OR ELEVATED TEMP; Start 09/09/18 at 22:30 Amlodipine Besylate (Norvasc) 5 mg BID PO ; Start 09/09/18 at 22:30 Anastrozole (Arimidex) 1 mg DAILY PO ; Start 09/10/18 at 09:00 Benazepril HCl (Lotensin) 5 mg BID PO ; Start 09/09/18 at 22:30 Carvedilol (Coreg) 3.125 mg BID PO ; Start 09/09/18 at 22:30 Docusate Sodium (Colace) 200 mg BID PO Last administered on 09/09/18at 22:42; Admin Dose 200 MG; Start 09/09/18 at 22:30 Escitalopram Oxalate (Lexapro) 10 mg DAILY PO ; Start 09/10/18 at 09:00 Furosemide (Lasix) 20 mg DAILY PO ; Start 09/10/18 at 09:00 Magnesium Hydroxide (Milk Of Mag) 30 ml DAILY PO ; Start 09/10/18 at 09:00 Ondansetron HCl (Zofran Tab) 4 mg Q6H PRN PO NAUSEA AND/OR VOMITING; Start 09/09/18 at 22:30 Oxycodone HCl (Oxycontin) 20 mg Q12 PO Last administered on 09/09/18at 22:43; Admin Dose 20 MG; Start 09/09/18 at 22:30 Pantoprazole (Protonix Tab) 40 mg AC BREAKFAST PO ; Start 09/10/18 at 07:00 Polyethylene Glycol (Miralax) 17 gm BID PO Last administered on 09/09/18at 22:43; Admin Dose 17 GM; Start 09/09/18 at 22:30 Potassium Chloride (Klor-Con 20) 20 meq DAILY PO ; Start 09/10/18 at 09:00 DES DUNAWAY MD Sep 09, 2018 23:19
[2018-09-10 02:15] VITALS: BP 110/79; PULSE 83; RESP 18
[2018-09-10] MEDS: PANTOPRAZOLE (EC) 40 MG TAB PO SCH (05:39)
[2018-09-10 08:29] VITALS: BP 115/81; PULSE 125; RESP 18
[2018-09-10] MEDS ORDERED: FUROSEMIDE 20 MG TAB PO SCH (09:00)
[2018-09-10] MEDS: AMLODIPINE 5 MG TAB PO SCH ×2 (09:00→20:21)
[2018-09-10] MEDS: BENAZEPRIL 5 MG TAB PO SCH ×2 (09:00→20:21)
--- NOTE | 2018-09-10 09:30 | HP ---
Date/Time of Note Date/Time of Note DATE: 09/10/18 TIME: 09: Assessment/Plan VTE Prophylaxis SCD applied (from Nsg): Yes SCD contraindicated: low risk/ambulating Pharmacological prophylaxis: LMWH Lines/Catheters IV Catheter Type (from Nrsg): PORT A CATH Central line still needed: No Reason Cath still needed: urinary retention Assessment/Plan Assessment/Plan 1. Cancer of the left breast. Exact type at this time unknown.MULTIPLE BONY METS, PULMONARY METS 2. Severe pain in the interscapular and lumbar sacral area most probably metastatic lesion possible femoral fracture. pathologic fracture of T9 with 60% of loss of height. Neurosurgical f/u. 3. Obesity. 4. Weight loss 60 pounds during the last 2 years by diet 5. PMS. 6. Myopia. 7. Anemia chronic disease with a drop of her hematocrit to 27 and regaining to 30 without any measures. Latest results 28. Protonix was added. Today hematocrit is 26. Will recheck tomorrow 8. Anxiety disorder. Claustrophobia. Increase Ativan to 1 mg every 8 as needed at Lexapro 10 mg daily. 9. Posttraumatic stress disorder. 10. Pain in the left forearm with a history of fracture of ulna and radius. 11. Tachycardia 12. Hypoxemia at night marginal improved after 2 L of nasal cannula oxygen. 13. Deconditioning 14. 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 15. Pain syndrome. Today the most painful zone is in the right hip area. X- ray did not show any fractures. 16. Hyponatremia- resolved 17. Leucopenia-improved. 18. Neutropenia with occasional fever and chills. Last chemotherapy 5 days ago. 19. Hypoalbuminemia. 20.Right sided cp after catheter insertion and correction less discomfort. 21. Decreased edema both lower extremities with hypotension-improving 22.Swelling of the left forearm-persist. Now with erythema involving mainly the dorsum of the left upper extremity. 23.S/p left (yesterday) thoracentesis with 1000cc removal yesterday.Right sided thoracentesis planned today. 24. Systolic over diastolic congestive heart failure with a right more than left lower extremity swelling with no DVT in latest venous Doppler. Result Diagram: 09/10/18 0696 09/09/18 1355 Results 24hrs Laboratory Tests Test 09/09/18 13:55 09/09/18 17:16 09/09/18 22:50 09/10/18 04:36 White Blood Count 1.2 #L 1.3 L Red Blood Count 3.56 L 3.47 L Hemoglobin 11.5 L 11.1 L Hematocrit 35.1 L 34.6 L Mean Corpuscular 98.6 99.7 Volume Mean Corpuscular 32.3 32.0 Hemoglobin Mean Corpuscular 32.8 32.1 Hemoglobin Concen t Red Cell 15.2 H 15.6 H Distribution Width Platelet Count 89 L 96 L Mean Platelet 9.7 10.4 Volume Immature 0.000 L 0.000 L Granulocytes % Neutrophils % 15.9 L Segmented 23 L Neutrophils % (Manual) Band Neutrophils 8 H % (Manual) Lymphocytes % 62.1 H Lymphocytes % 48 (Manual) Reactive 5 H Lymphocytes % (Manual) Monocytes % 19.7 H Monocytes % 15 H (Manual) Eosinophils % 0.0 Basophils % 2.3 H Metamyelocytes % 1 H (manual) Nucleated Red 1 H 0.0 Blood Cells % Immature 0.000 0.000 Granulocytes # Neutrophils # 0.2 L Neutrophils # 0.3 L (Manual) Band Neutrophils 0.0 # Lymphocytes 0.5 L (Manual) Lymphocytes # 0.8 Reactive 0.0 Lymphocytes # Monocytes # 0.3 Monocytes # 0.1 L (Manual) Eosinophils # 0.0 Basophils # 0.0 Metamyelocytes # 0.0 Nucleated Red 0.0 Blood Cells # Platelet Estimate DECREASED Polychromasia 3+ Anisocytosis 1+ Microcytosis 1+ Prothrombin Time 13.5 Prothrombin Time 1.1 Ratio INR International 1.02 Normalized Ratio Activated Partial Thrombopl ast Time Path Consult ALAINA SHIPMAN Signing Pathologi MD brown Sodium Level 135 Potassium Level 4.5 Chloride Level 103 Carbon Dioxide 26 Level Anion Gap 6 Blood Urea 13 Nitrogen Creatinine 0.51 Est Glomerular > 60 Filtrat Rate mL/min Glucose Level 121 Calcium Level 8.5 Total Bilirubin 0.6 Direct Bilirubin 0.00 Indirect 0.6 Bilirubin Aspartate Amino 39 Transf (AST/SGOT) Alanine 23 Aminotransferase (ALT/SGPT) Alkaline 73 Phosphatase Total Protein 5.3 L Albumin 2.7 L Globulin 2.60 Albumin/Globulin 1.03 Ratio Lactic Acid Level 1.3 D-Dimer > 92805.00 H Magnesium Level 1.8 Iron Level 75 Total Iron 224 L Binding Capacity Percent Iron 33 Saturation B-Type 98 Natriuretic Peptide Amylase Level 32 Thyroid 1.910 Stimulating Hormone (TSH) HPI/ROS Admit Date/Time Admit Date/Time Sep 09, 2018 at 14:53 Hx of Present Illness Worsening of her shortness of breath. Right more than left lower extremity edema last 3 days getting more shortness of breath and having tachycardia being unable to lay down last night with heart rate reaching more than 110 bpm. After discussion with oncologist decided to transfer the patient to hospital for further evaluation and treatment. And asked the emergency room to perform a left thoracentesis as soon as possible with plan thoracentesis today to the right side. The patient continues to be in the pain with the worsening of the edema of the left breast extremity with redness. She was unable to eat last 3-4 days she lost appetite become more depressed sleepless and depending on pain medications. ROS Subjective hx not possible: pt critical Constitutional: diaphoresis, fatigue, nausea, poor po, weight change; No no complaints, No improved, No chills, No disoriented, No febrile, No other Eyes: redness; No no complaints, No pain, No discharge, No visual change, No other ENT: congestion; No no complaints, No bleeding, No pain, No discharge, No dysphagia, No sore throat, No other Respiratory: cough, pleuritic pain, shortness of breath, other (Pain in the lef t side and the site of thoracentesis.); No no complaints, No pain, No sputum, No wheezing Cardiovascular: chest pain, edema; No no complaints, No lightheadedness, No orthopenea, No palpitations, No paroxysmal nocturnal dyspnea, No other Gastrointestinal: constipation, decreased appetite, flatus, nausea, passing stool; No no complaints, No pain, No blood, No diarrhea, No vomiting, No other Genitourinary: dysuria, flank pain; No no complaints, No bleeding, No discharge, No hematuria, No other Musculoskeletal: back pain, bone/joint pain (Pain mainly in the right hip area), neck pain ( pain in the left hip area with bilateral shoulder pain and neck pain.); No no complaints, No restricted range of motion, No swelling, No other Skin: erythema (Left upper extremity mainly dorsum.), rash; No no complaints, No bruising, No laceration, No pruritis, No skin lesions, No other Neurologic: headache; No no complaints, No confusion, No dizziness, No focal-weakness, No syncope, No seizure, No other Endocrine: No no complaints, No polyuria, No polydypsia, No dry skin, No temp intolerance, No weight change, No other Lymphatic: No no complaints, No adenopathy, No tender nodes, No lymphadema, No other Psychological: anxiety, depression; No no complaints, No nl mood/affect, No confusion, No suicidal, No other Immunologic: No no complaints, No immunodeficiency, No pruritis, No rhinitis, No urticaria, No other PMH/Family/Social Past Medical History Medical History: coronary artery disease, deep vein thrombosis, GERD, high cholesterol, hypertension, irritable bowel syndrome, renal disease, urinary tract infection Medications Current Medications Ondansetron HCl (Zofran Inj) 4 mg BRIDGE ORDER PRN IV NAUSEA/VOMITING; Start 09/09/18 at 15:00; Stop 09/10/18 at 14:59 Acetaminophen (Tylenol Tab) 650 mg ER BRIDGE PRN PO .MILD PAIN 1-3 OR TEMP; Start 09/09/18 at 15:00; Stop 09/10/18 at 14:59 Acetaminophen (Tylenol Tab) 500 mg Q6H PRN PO MILD PAIN(1-3)OR ELEVATED TEMP; Start 09/09/18 at 22:30 Amlodipine Besylate (Norvasc) 5 mg BID PO ; Start 09/09/18 at 22:30 Anastrozole (Arimidex) 1 mg DAILY PO ; Start 09/10/18 at 09:00 Benazepril HCl (Lotensin) 5 mg BID PO ; Start 09/09/18 at 22:30 Carvedilol (Coreg) 3.125 mg BID PO ; Start 09/09/18 at 22:30 Docusate Sodium (Colace) 200 mg BID PO Last administered on 09/09/18at 22:42; Admin Dose 200 MG; Start 09/09/18 at 22:30 Escitalopram Oxalate (Lexapro) 10 mg DAILY PO ; Start 09/10/18 at 09:00 Furosemide (Lasix) 20 mg DAILY PO ; Start 09/10/18 at 09:00 Magnesium Hydroxide (Milk Of Mag) 30 ml DAILY PO ; Start 09/10/18 at 09:00 Ondansetron HCl (Zofran Tab) 4 mg Q6H PRN PO NAUSEA AND/OR VOMITING; Start 09/09/18 at 22:30 Oxycodone HCl (Oxycontin) 20 mg Q12 PO Last administered on 09/09/18at 22:43; Admin Dose 20 MG; Start 09/09/18 at 22:30 Pantoprazole (Protonix Tab) 40 mg AC BREAKFAST PO Last administered on 09/10/18at 05:39; Admin Dose 40 MG; Start 09/10/18 at 07:00 Polyethylene Glycol (Miralax) 17 gm BID PO Last administered on 09/09/18at 22:43; Admin Dose 17 GM; Start 09/09/18 at 22:30 Potassium Chloride (Klor-Con 20) 20 meq DAILY PO ; Start 09/10/18 at 09:00 Filgrastim (Neupogen) 300 mcg DAILY@1700 SC ; Start 09/10/18 at 17:00; Stop 09/11/18 at 17:01 Coded Allergies: No Known Allergy (Unverified , 09/09/18) Past Surgical History Past Surgical Hx: no surgical history Family History Significant Family History: no pertinent family hx Social History Alcohol Use: none Smoking Status: Never smoker Drug Use: none Exam/Review of Systems Vital Signs Vitals Vital Signs Date Temp Pulse Resp B/P (MAP) Pulse Ox O2 O2 Flow FiO2 Time Delivery Rate 09/10/18 99.4 125 18 115/81 92 Nasal 08:29 (92) Cannula 09/10/18 2.0 00:28 Intake and Output 09/09/18 09/09/18 09/10/18 1515:00 23:00 07:00 IntakeIntake Total 200 ml BalanceBalance 200 ml Exam Constitutional: alert, oriented, well developed, distress, frail, other (She is making heroic efforts to be able to sit up stand gait is unstable.); No non-verbal Psych: anxiety, depression; No no complaints, No nl mood/affect, No confusion, No suicidal, No other Head: normocephalic, atraumatic; No lacerations, No hematomas, No other Eyes: EOMI, PERRL; No nl conjunctiva, No nl lids, No nl sclera, No icteric, No fundi, disc, No other ENMT: tympanic membranes; No nl external ears & nose, No nl lips & teeth, No nl nasal mucosa & septum, No mucosa pink and moist, No intubated, No other Neck: bruits, nuchal rigidity; No supple, No non-tender, No jvd, No masses, No thyromegaly, No other Respiratory: normal air movement, crackles/rales, diminished breath sounds; No clear to auscultation, No congested cough, No intercostal retraction, No labored breathing, No respirations, No tactile fremitus, No wheezing, No other Cardiovascular: bruits, edema (Right more than left lower extremity pitting edema left upper extremity lymphedema and cellulitis with redness of the dorsum from shoulder to dorsum of the palm area.), murmurs/extra sounds, systolic murmur; No regular rate and rhythm, No nl pulses, No diastolic murmur, No gallop, No irregular rhythm, No jugular venous distention (JVD), No rub, No S3, No S4, No other Gastrointestinal: soft, bowel sounds, distended; No nl liver, spleen, No non-tender, No ascites, No firm, No hepatomegaly, No mass, No rebound or guarding, No splenomegaly, No surgical scars, No tender, No other Genitourinary - Female: No nl adnexae, No nl external genitalia, No CMT, No CVA tenderness, No uterus, No other Musculoskeletal: joint tenderness, muscle tone, muscle weakness; No nl extremities to inspection, No nl gait and stance, No range of motion, No spine non-tender, No swelling, No other 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 Ventral collar of the left breast it is more brownish darker comparing to the right with a palpable masses.); No rash or lesions, No diaphoresis, No ecchymosis, No laceration, No puncture RUSS JEROME MD Sep 10, 2018 09:30
[2018-09-10] MEDS: DOCUSATE SODIUM 100 MG CAP PO SCH ×2 (10:05→20:20)
[2018-09-10] MEDS: POLYETHYLENE GLYCOL 17 GM PACKET PO SCH ×2 (10:05→20:21)
[2018-09-10] MEDS: oxyCODONE (CR) 20 MG TAB [oxyCONTIN] PO SCH ×2 (10:05→20:22)
[2018-09-10] MEDS: POTASSIUM CHLORIDE (SR) 20 MEQ TAB PO SCH (10:05)
[2018-09-10] MEDS: ESCITALOPRAM 10 MG TAB PO SCH (10:06)
[2018-09-10] MEDS: ANASTROZOLE 1 MG TAB PO SCH (10:08)
[2018-09-10] MEDS: MAGNESIUM HYDROXIDE 30ML CUP PO SCH (10:11)
[2018-09-10] MEDS: ONDANSETRON 4 MG TAB PO PRN (10:14)
[2018-09-10] MEDS ORDERED: LIDOCAINE 1% (MPF) 5 ML VIAL ONE (12:47)
[2018-09-10] MEDS ORDERED: FILGRASTIM 300 MCG INJ SC SCH (17:00)
[2018-09-10 19:50] VITALS: BP 104/65; PULSE 101; RESP 18
[2018-09-10 20:15] VITALS: BP 104/66; PULSE 20; RESP 19
[2018-09-10] MEDS: FUROSEMIDE 20 MG INJ IV SCH (20:20)
--- NOTE | 2018-09-10 23:13 | CONS ---
Assessment/Plan Assessment/Plan Hospital Course (Demo Recall) METASTATIC BREAST CANCER WITH PRIMARY ADENOCARCINOMA IN the left breast. MULTIPLE BONY METS, PULMONARY METS, LIVER METS CHEMO ON HOLD PT HAS A VERY GOOD RESPONSE TO CHEMO AND AI CONT AI FOR NOW CT ABD FOR RESTAGING 08.27.18- noted , stable Leucopenia- post chemo NEUPOGEN monitor closely post Neutropenia with occasional fever and chills. Anemia chronic disease SOB PLEURAL EFFUSIONS thoracentesis Fluid overload diuretic cardiology consult Severe pain in the interscapular and lumbar sacral area most probably metastatic lesion possible femoral fracture. pathologic fracture of T9 with 60% of loss of height. Obesity. Weight loss 60 pounds during the last 2 years PMS. Myopia. Anxiety disorder. Claustrophobia. Posttraumatic stress disorder. Pain in the left forearm with a history of fracture of ulna and radius. Tachycardia Hypoxemia at night marginal improved after 2 L of nasal cannula oxygen. Deconditioning Pain syndrome. Today the most painful zone is in the right hip area. X-ray did not show any fractures. Hyponatremia- resolved Hypoalbuminemia Right sided cp after catheter insertion and correction less discomfort. Decreased edema both lower extremities with hypotension-improving Swelling of the left forearm-persist. Consultation Date/Type/Reason Admit Date/Time Sep 09, 2018 at 14:53 Initial Consult Date 09/09/18 Type of Consult [facility] Requesting Provider: RUSS JEROME MD Date/Time of Note DATE: 09/10/18 TIME: 23:13 24 HR Interval Summary Free Text/Dictation all noted neutropenia persist no fever weak fluid overloaded Exam/Review of Systems Exam Vitals Vital Signs Date Temp Pulse Resp B/P (MAP) Pulse Ox O2 O2 Flow FiO2 Time Delivery Rate 09/10/18 Nasal 2.0 21:15 Cannula 09/10/18 98.6 20 104/66 98 20:15 (79) Intake and Output 09/09/18 09/09/18 09/10/18 1515:00 23:00 07:00 IntakeIntake Total 200 ml BalanceBalance 200 ml Exam Constitutional: alert, oriented, well developed, distress, frail, No non-verbal Psych: anxiety, depression; No no complaints, No nl mood/affect, No confusion, No suicidal, No other Head: normocephalic, atraumatic; No lacerations, No hematomas, No other Eyes: EOMI, PERRL; No nl conjunctiva, No nl lids, No nl sclera, No icteric, No fundi, disc, No other ENMT: tympanic membranes; No nl external ears & nose, No nl lips & teeth, No nl nasal mucosa & septum, No mucosa pink and moist, No intubated, No other Neck: bruits, nuchal rigidity; No supple, No non-tender, No jvd, No masses, No thyromegaly, No other Respiratory: normal air movement, crackles/rales, diminished breath sounds; No clear to auscultation, No congested cough, No intercostal retraction, No labored breathing, No respirations, No tactile fremitus, No wheezing, No other Cardiovascular: bruits, edema (Right more than left lower extremity pitting edema left upper extremity lymphedema and cellulitis with redness of the dorsum from shoulder to dorsum of the palm area.), murmurs/extra sounds, systolic murmur; No regular rate and rhythm, No nl pulses, No diastolic murmur, No gallop, No irregular rhythm, No jugular venous distention (JVD), No rub, No S3, No S4, No other Gastrointestinal: soft, bowel sounds, distended; No nl liver, spleen, No non-tender, No ascites, No firm, No hepatomegaly, No mass, No rebound or guarding, No splenomegaly, No surgical scars, No tender, No other Genitourinary - Female: No nl adnexae, No nl external genitalia, No CMT, No CVA tenderness, No uterus, No other Musculoskeletal: joint tenderness, muscle tone, muscle weakness; No nl extremities to inspection, No nl gait and stance, No range of motion, No spine non-tender, No swelling, No other 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: TITLE I DIRECTOR 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, nl speech, numbness, reflexes; No nl mental status, No nl strength, No confused, No DTR's symmetric, No focal weakness, No lethargic, No unresponsive, No other Skin: nl turgor, other (She is now in anasarca condition edema all over including the face. Ventral collar of the left breast it is more brownish darker comparing to the right with a palpable masses.); No rash or lesions, No diaphoresis, No ecchymosis, No laceration, No puncture Results Result Diagram: 09/10/18 0436 09/09/18 1355 Results 24hrs Laboratory Tests Test 09/10/18 04:36 09/10/18 09:24 White Blood Count 1.3 L Red Blood Count 3.47 L Hemoglobin 11.1 L Hematocrit 34.6 L Mean Corpuscular Volume 99.7 Mean Corpuscular Hemoglobin 32.0 Mean Corpuscular Hemoglobin Concent 32.1 Red Cell Distribution Width 15.6 H Platelet Count 96 L Mean Platelet Volume 10.4 Immature Granulocytes % 0.000 L Neutrophils % 15.9 L Lymphocytes % 62.1 H Monocytes % 19.7 H Eosinophils % 0.0 Basophils % 2.3 H Nucleated Red Blood Cells % 0.0 Immature Granulocytes # 0.000 Neutrophils # 0.2 L Lymphocytes # 0.8 Monocytes # 0.3 Eosinophils # 0.0 Basophils # 0.0 Nucleated Red Blood Cells # 0.0 Lab Scanned Report LAB Medications Medication Current Medications Acetaminophen (Tylenol Tab) 500 mg Q6H PRN PO MILD PAIN(1-3)OR ELEVATED TEMP; Start 09/09/18 at 22:30 Amlodipine Besylate (Norvasc) 5 mg BID PO ; Start 09/09/18 at 22:30 Anastrozole (Arimidex) 1 mg DAILY PO Last administered on 09/10/18at 10:08; Admin Dose 1 MG; Start 09/10/18 at 09:00 Benazepril HCl (Lotensin) 5 mg BID PO ; Start 09/09/18 at 22:30 Carvedilol (Coreg) 3.125 mg BID PO Last administered on 09/10/18at 20:21; Admin Dose 3.125 MG; Start 09/09/18 at 22:30 Docusate Sodium (Colace) 200 mg BID PO Last administered on 09/10/18at 20:20; Admin Dose 200 MG; Start 09/09/18 at 22:30 Escitalopram Oxalate (Lexapro) 10 mg DAILY PO Last administered on 09/10/18at 10:06; Admin Dose 10 MG; Start 09/10/18 at 09:00 Magnesium Hydroxide (Milk Of Mag) 30 ml DAILY PO Last administered on 09/10/18at 10:11; Admin Dose 30 ML; Start 09/10/18 at 09:00 Ondansetron HCl (Zofran Tab) 4 mg Q6H PRN PO NAUSEA AND/OR VOMITING Last administered on 09/10/18 10:14; Admin Dose 4 MG; Start 09/09/18 at 22:30 Oxycodone HCl (Oxycontin) 20 mg Q12 PO Last administered on 09/10/18 20:22; Admin Dose 20 MG; Start 09/09/18 at 22:30 Pantoprazole (Protonix Tab) 40 mg AC BREAKFAST PO Last administered on 09/10/18 05:39; Admin Dose 40 MG; Start 09/10/18 at 07:00 Polyethylene Glycol (Miralax) 17 gm BID PO Last administered on 09/10/18 10:05; Admin Dose 17 GM; Start 09/09/18 at 22:30 Potassium Chloride (Klor-Con 20) 20 meq DAILY PO Last administered on 09/10/18 10:05; Admin Dose 20 MEQ; Start 09/10/18 at 09:00 Filgrastim (Neupogen) 300 mcg DAILY@1700 SC Last administered on 09/10/18 18:43; Admin Dose 300 MCG; Start 09/10/18 at 17:00; Stop 09/11/18 at 17:01 Furosemide (Lasix) 20 mg BID DIURETICS IV Last administered on 09/10/18 20:20; Admin Dose 20 MG; Start 09/10/18 at 19:00 DES DUNAWAY MD Sep 10, 2018 23:13
[2018-09-11] VITALS (7 sets, daily range): BP systolic 84–112; BP diastolic 52–84; PULSE 94–107; RESP 18–20
[2018-09-11] MEDS: FUROSEMIDE 20 MG INJ IV SCH ×2 (06:31→18:00)
[2018-09-11] MEDS: PANTOPRAZOLE (EC) 40 MG TAB PO SCH (09:08)
[2018-09-11] MEDS: POTASSIUM CHLORIDE (SR) 20 MEQ TAB PO SCH (09:11)
[2018-09-11] MEDS: DOCUSATE SODIUM 100 MG CAP PO SCH ×2 (09:13→21:05)
[2018-09-11] MEDS: ESCITALOPRAM 10 MG TAB PO SCH (09:13)
[2018-09-11] MEDS: MAGNESIUM HYDROXIDE 30ML CUP PO SCH (09:16)
[2018-09-11] MEDS: POLYETHYLENE GLYCOL 17 GM PACKET PO SCH ×2 (09:18→21:00)
[2018-09-11] MEDS: ANASTROZOLE 1 MG TAB PO SCH (09:22)
[2018-09-11] MEDS: BENAZEPRIL 5 MG TAB PO SCH ×2 (09:26→21:00)
[2018-09-11] MEDS: AMLODIPINE 5 MG TAB PO SCH (09:28)
[2018-09-11] MEDS: oxyCODONE (CR) 20 MG TAB [oxyCONTIN] PO SCH ×2 (09:47→21:05)
[2018-09-11] MEDS: ONDANSETRON 4 MG TAB PO PRN (16:51)
[2018-09-11] MEDS ORDERED: FILGRASTIM-AAFI 300 MCG/0.5 ML SYRINGE SC SCH (17:00)
[2018-09-11] MEDS ORDERED: ALBUMIN HUMAN 25% 50 ML IV ONE (19:00)
[2018-09-11] MEDS: FUROSEMIDE 40 MG INJ IV SCH (21:05)
--- NOTE | 2018-09-11 21:17 | CONS ---
Assessment/Plan Assessment/Plan Hospital Course (Demo Recall) METASTATIC BREAST CANCER WITH PRIMARY ADENOCARCINOMA IN the left breast. MULTIPLE BONY METS, PULMONARY METS, LIVER METS CHEMO ON HOLD PT HAS A VERY GOOD RESPONSE TO CHEMO AND AI CONT AI FOR NOW CT ABD FOR RESTAGING 08.27.18- noted , stable Leucopenia- post chemo NEUPOGEN monitor closely post Neutropenia with occasional fever and chills. Anemia chronic disease SOB PLEURAL EFFUSIONS thoracentesis Fluid overload diuretic cardiology consult Severe pain in the interscapular and lumbar sacral area most probably metastatic lesion possible femoral fracture. pathologic fracture of T9 with 60% of loss of height. Obesity. Weight loss 60 pounds during the last 2 years PMS. Myopia. Anxiety disorder. Claustrophobia. Posttraumatic stress disorder. Pain in the left forearm with a history of fracture of ulna and radius. Tachycardia Hypoxemia at night marginal improved after 2 L of nasal cannula oxygen. Deconditioning Pain syndrome. Today the most painful zone is in the right hip area. X-ray did not show any fractures. Hyponatremia- resolved Hypoalbuminemia Right sided cp after catheter insertion and correction less discomfort. Decreased edema both lower extremities with hypotension-improving Swelling of the left forearm-persist. Consultation Date/Type/Reason Admit Date/Time Sep 09, 2018 at 14:53 Initial Consult Date 09/09/18 Type of Consult [facility] Requesting Provider: RUSS JEROME MD Date/Time of Note DATE: 09/11/18 TIME: 21:17 24 HR Interval Summary Free Text/Dictation all noted min improvement Exam/Review of Systems Exam Vitals Vital Signs Date Temp Pulse Resp B/P (MAP) Pulse Ox O2 O2 Flow FiO2 Time Delivery Rate 09/11/18 94 102/52 21:03 (69) 09/11/18 98.6 19 95 Nasal 2.0 19:50 Cannula Intake and Output 09/10/18 09/10/18 09/11/18 1515:00 23:00 07:00 IntakeIntake Total 360 ml 1000 ml 200 ml OutputOutput Total 550 ml 1150 ml 200 ml BalanceBalance -190 ml -150 ml 0 ml Exam Constitutional: alert, oriented, well developed, distress, frail Psych: anxiety, depression; No no complaints, No nl mood/affect, No confusion, No suicidal, No other Head: normocephalic, atraumatic Eyes: EOMI, nl lids; No nl conjunctiva, No nl sclera, No PERRL, No icteric, No fundi, disc, No other ENMT: No nl external ears & nose, No nl lips & teeth, No nl nasal mucosa & septum, No mucosa pink and moist, No intubated, No tympanic membranes, No other Neck: supple, jvd, bruits; No non-tender, No masses, No thyromegaly, No nuchal rigidity, No other Respiratory: congested cough, diminished breath sounds (Left more prominent than the right side.); No clear to auscultation, No normal air movement, No crackles/rales, No intercostal retraction, No labored breathing, No respirations, No tactile fremit us, No wheezing, No other Cardiovascular: No regular rate and rhythm, No nl pulses, No bruits, No diastolic murmur, No edema, No gallop, No irregular rhythm, No jugular venous di stention (JVD), No murmurs/extra sounds, No rub, No systolic murmur, No S3, No S4, No other Gastrointestinal: soft, nl liver, spleen, distended Extremities: edema (Left upper extremity more prominent in the right.) Results Result Diagram: 09/11/18 0436 09/09/18 1355 Results 24hrs Laboratory Tests Test 09/11/18 04:36 09/11/18 19:02 White Blood Count 3.5 #L Red Blood Count 3.23 L Hemoglobin 10.4 L Hematocrit 31.7 L Mean Corpuscular Volume 98.1 Mean Corpuscular Hemoglobin 32.2 Mean Corpuscular Hemoglobin Concent 32.8 Red Cell Distribution Width 15.7 H Platelet Count 81 L Mean Platelet Volume 10.1 Immature Granulocytes % 2.000 H Neutrophils % Segmented Neutrophils % (Manual) 20 L Band Neutrophils % (Manual) 49 H Lymphocytes % Lymphocytes % (Manual) 21 Reactive Lymphocytes % (Manual) 2 H Monocytes % Monocytes % (Manual) 8 Eosinophils % Basophils % Nucleated Red Blood Cells % 0.0 Immature Granulocytes # 0.070 H Neutrophils # Neutrophils # (Manual) 0.8 L Band Neutrophils # 1.7 H Lymphocytes (Manual) 0.7 L Lymphocytes # Reactive Lymphocytes # 0.0 Monocytes # Monocytes # (Manual) 0.2 L Eosinophils # Basophils # Nucleated Red Blood Cells # Platelet Estimate DECREASED Polychromasia 1+ Poikilocytosis 1+ Anisocytosis 2+ Microcytosis 2+ Spherocytes 1+ Free Thyroxine 1.54 Medications Medication Current Medications Acetaminophen (Tylenol Tab) 500 mg Q6H PRN PO MILD PAIN(1-3)OR ELEVATED TEMP; Start 09/09/18 at 22:30 Anastrozole (Arimidex) 1 mg DAILY PO Last administered on 09/11/18 09:22; Admin Dose 1 MG; Start 09/10/18 at 09:00 Benazepril HCl (Lotensin) 5 mg BID PO Last administered on 09/11/18 09:26; Admin Dose 5 MG; Start 09/09/18 at 22:30 Carvedilol (Coreg) 3.125 mg BID PO Last administered on 09/11/18 09:26; Admin Dose 3.125 MG; Start 09/09/18 at 22:30 Docusate Sodium (Colace) 200 mg BID PO Last administered on 09/11/18 21:05; Admin Dose 200 MG; Start 09/09/18 at 22:30 Escitalopram Oxalate (Lexapro) 10 mg DAILY PO Last administered on 09/11/18 09:13; Admin Dose 10 MG; Start 09/10/18 at 09:00 Magnesium Hydroxide (Milk Of Mag) 30 ml DAILY PO Last administered on 09/11/18 09:16; Admin Dose 30 ML; Start 09/10/18 at 09:00 Ondansetron HCl (Zofran Tab) 4 mg Q6H PRN PO NAUSEA AND/OR VOMITING Last admin istered on 09/11/18 16:51; Admin Dose 4 MG; Start 09/09/18 at 22:30 Oxycodone HCl (Oxycontin) 20 mg Q12 PO Last administered on 09/11/18 21:05; Admin Dose 20 MG; Start 09/09/18 at 22:30 Pantoprazole (Protonix Tab) 40 mg AC BREAKFAST PO Last administered on 09/11/18 09:08; Admin Dose 40 MG; Start 09/10/18 at 07:00 Polyethylene Glycol (Miralax) 17 gm BID PO Last administered on 09/11/18 09:1 8; Admin Dose 17 GM; Start 09/09/18 at 22:30 Potassium Chloride (Klor-Con 20) 20 meq DAILY PO Last administered on 09/11/18at 09:11; Admin Dose 20 MEQ; Start 09/10/18 at 09:00 Amlodipine Besylate (Norvasc) 5 mg DAILY PO ; Start 09/12/18 at 09:00 Furosemide (Lasix) 40 mg BID DIURETICS IV Last administered on 09/11/18at 21:05; Admin Dose 40 MG; Start 09/11/18 at 19:09 DES DUNAWAY MD Sep 11, 2018 21:17
--- NOTE | 2018-09-11 22:25 | PN ---
Date/Time of Note Date/Time of Note DATE: 09/11/18 TIME: 22:22 Assessment/Plan VTE Prophylaxis Risk score (from Nsg)>0 risk: 6 SCD applied (from Nsg): Yes SCD contraindicated: low risk/ambulating Pharmacological prophylaxis: LMWH Lines/Catheters IV Catheter Type (from Nrsg): Peripheral IV Central line still needed: No Urinary Cath still in place: No Assessment/Plan Assessment/Plan 1. Cancer of the left breast. Exact type at this time unknown.MULTIPLE BONY METS, PULMONARY METS 2. Severe pain in the interscapular and lumbar sacral area most probably metastatic lesion possible femoral fracture. pathologic fracture of T9 with 60% of loss of height. Neurosurgical f/u. 3. Obesity. 4. Weight loss 60 pounds during the last 2 years by diet 5. PMS. 6. Myopia. 7. Anemia chronic disease with a drop of her hematocrit to 27 and regaining to 30 without any measures. Latest results 28. Protonix was added. Today hematocrit is 26. Will recheck tomorrow 8. Anxiety disorder. Claustrophobia. Increase Ativan to 1 mg every 8 as ne eded at Lexapro 10 mg daily. 9. Posttraumatic stress disorder. 10. Pain in the left forearm with a history of fracture of ulna and radius. 11. Tachycardia 12. Hypoxemia at night marginal improved after 2 L of nasal cannula oxygen. 13. Deconditioning 14. 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 15. Pain syndrome. Today the most painful zone is in the right hip area. X- ray did not show any fractures. 16. Hyponatremia- resolved 17. Leucopenia-improved. 18. Neutropenia with occasional fever and chills. Last chemotherapy 5 days ago. 19. Hypoalbuminemia. 20.Right sided cp after catheter insertion and correction less discomfort. 21. Decreased edema both lower extremities with hypotension-improving 22.Swelling of the left forearm-persist. Now with erythema involving mainly the dorsum of the left upper extremity. 23.S/p left (yesterday) thoracentesis with 1000cc removal yesterday.Right sided thoracentesis planned today. 24. Systolic over diastolic congestive heart failure with a right more than left lower extremity swelling with no DVT in latest venous Doppler. Result Diagram: 09/11/18 9796 09/09/18 1355 Results 24hrs Laboratory Tests Test 09/11/18 04:36 09/11/18 19:02 White Blood Count 3.5 #L Red Blood Count 3.23 L Hemoglobin 10.4 L Hematocrit 31.7 L Mean Corpuscular Volume 98.1 Mean Corpuscular Hemoglobin 32.2 Mean Corpuscular Hemoglobin Concent 32.8 Red Cell Distribution Width 15.7 H Platelet Count 81 L Mean Platelet Volume 10.1 Immature Granulocytes % 2.000 H Neutrophils % Segmented Neutrophils % (Manual) 20 L Band Neutrophils % (Manual) 49 H Lymphocytes % Lymphocytes % (Manual) 21 Reactive Lymphocytes % (Manual) 2 H Monocytes % Monocytes % (Manual) 8 Eosinophils % Basophils % Nucleated Red Blood Cells % 0.0 Immature Granulocytes # 0.070 H Neutrophils # Neutrophils # (Manual) 0.8 L Band Neutrophils # 1.7 H Lymphocytes (Manual) 0.7 L Lymphocytes # Reactive Lymphocytes # 0.0 Monocytes # Monocytes # (Manual) 0.2 L Eosinophils # Basophils # Nucleated Red Blood Cells # Platelet Estimate DECREASED Polychromasia 1+ Poikilocytosis 1+ Anisocytosis 2+ Microcytosis 2+ Spherocytes 1+ Free Thyroxine 1.54 Subjective 24 Hr Interval Summary Free Text/Dictation My breathing slightly improved. The breathing is worsening of chest pain. Still I am swollen. I am nauseating and vomiting. I do not feel good. Subjective hx not possible: pt critical Constitutional: diaphoresis, disoriented, poor po, requiring O2; No no complaints, No improved, No chills, No febrile, No requiring IVF, No o ther Eyes: No no complaints, No pain, No discharge, No redness, No visual change, No other ENT: congestion, dysphagia Respiratory: cough, pleuritic pain, shortness of breath; No no complaints, No pain, No sputum, No wheezing, No other Cardiovascular: chest pain, edema, lightheadedness, orthopenea, palpitations, paroxysmal nocturnal dyspnea; No no complaints, No other Gastrointestinal: constipation, decreased appetite, flatus, nausea, passing stool; No no complaints, No pain, No blood, No diarrhea, No vomiting, No other Genitourinary: dysuria; No no complaints, No bleeding, No discharge, No flank pain, No hematuria, No other Musculoskeletal: back pain, bone/joint pain, neck pain; No no complaints, No restricted range of motion, No swelling, No other Skin: pruritis, rash; No no complaints, No bruising, No erythema, No laceration, No skin lesions, No other Neurologic: confusion, dizziness, headache; No no complaints, No focal-weakness, No syncope, No seizure, No other Lymphatic: adenopathy, lymphadema; No no complaints, No tender nodes, No other Psychological: nl mood/affect (Depressed anxious tens.), anxiety, depression; No no complaints, No confusion, No suicidal, No other Immunologic: pruritis; No no complaints, No immunodeficiency, No rhinitis, No urticaria, No other Exam/Review of Systems Exam Vitals Vital Signs Date Temp Pulse Resp B/P (MAP) Pulse Ox O2 O2 Flow FiO2 Time Delivery Rate 09/11/18 94 102/52 21:03 (69) 09/11/18 2.0 20:00 09/11/18 98.6 19 95 Nasal 19:50 Cannula Intake and Output 09/10/18 09/10/18 09/11/18 1515:00 23:00 07:00 IntakeIntake Total 360 ml 1000 ml 200 ml OutputOutput Total 550 ml 1150 ml 200 ml BalanceBalance -190 ml -150 ml 0 ml Constitutional: alert, oriented, well developed, distress, frail Psych: anxiety, depression; No no complaints, No nl mood/affect, No confusion, No suicidal, No other Head: normocephalic, atraumatic Eyes: EOMI, nl lids; No nl conjunctiva, No nl sclera, No PERRL, No icteric, No fundi, disc, No other ENMT: No nl external ears & nose, No nl lips & teeth, No nl nasal mucosa & septum, No mucosa pink and moist, No intubated, No tympanic membranes, No other Neck: supple, jvd, bruits; No non-tender, No masses, No thyromegaly, No nuchal rigidity, No other Respiratory: congested cough, diminished breath sounds (Left more prominent than the right side.); No clear to auscultation, No normal air movement, No crackles/rales, No intercostal retraction, No labored breathing, No respirations, No tactile fremitus, No wheezing, No other Cardiovascular: No regular rate and rhythm, No nl pulses, No bruits, No diastolic murmur, No edema, No gallop, No irregular rhythm, No jugular venous distention (JVD), No murmurs/extra sounds, No rub, No systolic murmur, No S3, No S4, No other Gastrointestinal: soft, nl liver, spleen, distended Extremities: edema (Left upper extremity more prominent in the right.) Results Results 24hrs Laboratory Tests Test 09/11/18 04:36 09/11/18 19:02 White Blood Count 3.5 #L Red Blood Count 3.23 L Hemoglobin 10.4 L Hematocrit 31.7 L Mean Corpuscular Volume 98.1 Mean Corpuscular Hemoglobin 32.2 Mean Corpuscular Hemoglobin Concent 32.8 Red Cell Distribution Width 15.7 H Platelet Count 81 L Mean Platelet Volume 10.1 Immature Granulocytes % 2.000 H Neutrophils % Segmented Neutrophils % (Manual) 20 L Band Neutrophils % (Manual) 49 H Lymphocytes % Lymphocytes % (Manual) 21 Reactive Lymphocytes % (Manual) 2 H Monocytes % Monocytes % (Manual) 8 Eosinophils % Basophils % Nucleated Red Blood Cells % 0.0 Immature Granulocytes # 0.070 H Neutrophils # Neutrophils # (Manual) 0.8 L Band Neutrophils # 1.7 H Lymphocytes (Manual) 0.7 L Lymphocytes # Reactive Lymphocytes # 0.0 Monocytes # Monocytes # (Manual) 0.2 L Eosinophils # Basophils # Nucleated Red Blood Cells # Platelet Estimate DECREASED Polychromasia 1+ Poikilocytosis 1+ Anisocytosis 2+ Microcytosis 2+ Spherocytes 1+ Free Thyroxine 1.54 Medications Medication Current Medications Acetaminophen (Tylenol Tab) 500 mg Q6H PRN PO MILD PAIN(1-3)OR ELEVATED TEMP; Start 09/09/18 at 22:30 Anastrozole (Arimidex) 1 mg DAILY PO Last administered on 09/11/18at 09:22; Admin Dose 1 MG; Start 09/10/18 at 09:00 Benazepril HCl (Lotensin) 5 mg BID PO Last administered on 09/11/18 09:26; Admin Dose 5 MG; Start 09/09/18 at 22:30 Carvedilol (Coreg) 3.125 mg BID PO Last administered on 09/11/18 09:26; Admin Dose 3.125 MG; Start 09/09/18 at 22:30 Docusate Sodium (Colace) 200 mg BID PO Last administered on 3/27/19at 21:05; Admin Dose 200 MG; Start 09/09/18 at 22:30 Escitalopram Oxalate (Lexapro) 10 mg DAILY PO Last administered on 09/11/18 09:13; Admin Dose 10 MG; Start 09/10/18 at 09:00 Magnesium Hydroxide (Milk Of Mag) 30 ml DAILY PO Last administered on 09/11/18 09:16; Admin Dose 30 ML; Start 09/10/18 at 09:00 Ondansetron HCl (Zofran Tab) 4 mg Q6H PRN PO NAUSEA AND/OR VOMITING Last a dministered on 09/11/18 16:51; Admin Dose 4 MG; Start 09/09/18 at 22:30 Oxycodone HCl (Oxycontin) 20 mg Q12 PO Last administered on 09/11/18 21:05; Admin Dose 20 MG; Start 09/09/18 at 22:30 Pantoprazole (Protonix Tab) 40 mg AC BREAKFAST PO Last administered on 09/11/18 09:08; Admin Dose 40 MG; Start 09/10/18 at 07:00 Polyethylene Glycol (Miralax) 17 gm BID PO Last administered on 09/11/18 09:18; Admin Dose 17 GM; Start 09/09/18 at 22:30 Potassium Chloride (Klor-Con 20) 20 meq DAILY PO Last administered on 09/11/18 09:11; Admin Dose 20 MEQ; Start 09/10/18 at 09:00 Amlodipine Besylate (Norvasc) 5 mg DAILY PO ; Start 09/12/18 at 09:00 Furosemide (Lasix) 40 mg BID DIURETICS IV Last administered on 09/11/18 21:05; Admin Dose 40 MG; Start 09/11/18 at 19:09 RUSS JEROME MD Sep 11, 2018 22:25
[2018-09-12 01:50] VITALS: BP 105/58; PULSE 90; RESP 20
[2018-09-12 05:55] VITALS: BP 93/59; PULSE 108
[2018-09-12] MEDS: PANTOPRAZOLE (EC) 40 MG TAB PO SCH (06:00)
[2018-09-12] MEDS: FUROSEMIDE 40 MG INJ IV SCH ×2 (06:00→18:05)
[2018-09-12] MEDS ORDERED: FUROSEMIDE 40 MG INJ IV SCH (06:00)
[2018-09-12 07:47] VITALS: BP 102/67; PULSE 107; RESP 18
--- NOTE | 2018-09-12 08:13 | CONS ---
DATE OF ADMISSION: 09/09/2018 DATE OF CONSULTATION: 09/11/2018 REASON FOR CONSULTATION: Shortness of breath, congestive heart failure. REQUESTING PHYSICIANS: Dr. Sun Morrissey and Dr. Fernández . HISTORY OF PRESENT ILLNESS: Ms. Foreman is a 58-year-old female with a history of metastatic breast CA to her bones, congestive heart failure with the preserved EF by echo this month on 08/25/2018, pathologic fracture of the hip, and hypotension who presents with worsening shortness of breath and generalized body edema. Initially upon arrival, temperature 98.5, blood pressure 107/74, pulse 110, respiratory rate 20, satting 98%. The patient's labs revealed white count of 1.2, hemoglobin 11.5, platelet count of 89, creatinine 0.5, albumin 2.7, magnesium 75, BUN 13, UA borderline positive. The patient underwent a chest x-ray revealing mild cardiomegaly and central venous congestion. A venous ultrasound revealed no sonographic evidence for DVT and subsequently underwent a thoracentesis initially on the left side -1 liter on the and thoracentesis on the right side -500 mL on the . The patient's last electrocardiogram revealed normal sinus rhythm, rate of 95, low voltage, nonspecific ST abnormalities diffusely. The patient was admitted to the floor where she continues to have shortness of breath. PAST MEDICAL HISTORY: As above in HPI. MEDICATIONS CURRENTLY IN HOSPITAL: 1. Lasix 20 mg IV b.i.d. 2. Arimidex. 3. Lexapro. 4. Potassium chloride. 5. Protonix. 6. Norvasc 5 mg p.o. b.i.d. 7. Benazepril 5 mg b.i.d. 8. Carvedilol 3.125 mg p.o. b.i.d. 9. Colace. 10. Zofran. 11. OxyContin. 12. MiraLax. ALLERGIES: NO KNOWN DRUG ALLERGIES. SOCIAL HISTORY: No current tobacco, ETOH or illicit drug use. FAMILY HISTORY: No history of sudden cardiac or early CAD. REVIEW OF SYSTEMS: As above in HPI. CONSTITUTIONAL: No fevers or chills. PULMONARY: Shortness of breath. CARDIOVASCULAR: Congestive heart failure. GASTROINTESTINAL: No vomiting. GENITOURINARY: No hematuria. MUSCULOSKELETAL: Degenerative joint disease. PSYCHIATRIC: No documented psych history. NEUROLOGIC: No documented history of CVA. ENDOCRINE: No documented history of diabetes mellitus. PSYCHIATRIC: Positive psych history. PHYSICAL EXAMINATION: VITAL SIGNS: Temperature of 98.3, blood pressure per nurse 80 systolic/60, pulse in the low 100s, and 92%. GENERAL: The patient is alert, awake, states she feels anxious. NECK: JVP approximately 9 to 10 cm of water. CHEST: Decreased breath sounds at bases bilaterally. HEART: Tachycardic, regular rhythm, normal S1 and S2, I/ systolic murmur. ABDOMEN: Positive bowel sounds, soft. EXTREMITIES: No significant pitting edema, 2+ pitting edema bilaterally, 1+ pulses bilateral posterior. LABORATORY DATA: Most recent from today, white count 3.5, hemoglobin 10.4, platelet count of 81. Sodium 135, potassium 4.5, creatinine 0.5. BNP of 98. INR 1.0. IMAGING STUDIES: As above in HPI. No further imaging studies for my review at this time. ECG: As above in HPI. No further electrocardiograms for my review at this time. IMPRESSION: 1. Congestive heart failure exacerbation, diastolic by most recent echo, acute on chronic. 2. Hypotension, currently borderline. 3. Anasarca. 4. Metastatic breast carcinoma. 5. Leukopenia. 6. Thrombocytopenia. RECOMMENDATIONS: 1. At this time, I would continue the patient's Lasix diuresis and additionally give patient albumin dosing. The patient does seem to have third space fluids. 2. I would decrease patient's doses of antihypertensive, continuing carvedilol for control of tachycardia, but I am possibly going to hold Norvasc altogether given borderline blood pressure at this time. 3. We will reassess patient's ejection fraction with the limited echo just to assure nothing has changed since it appears patient may receive additional chemotherapy. 4. TSH within normal limits. 5. Complete the patient's rule out myocardial infarction 6. Continue the patient's current Arimidex and Lexapro and follow up for any complications status post thoracentesis. Thank you for allowing me to take part in the care of this patient. I will continue to follow very closely with you with recommendations to be made as the patient progresses through her inpatient hospital clinical course. Dictated By: KAMILA VIRAMONTES/KEANU Conf#: [id number] [facility]#: [id number] CC: Dr. Fernández; SUN MORRISSEY MD;*EndCC* MTDD
[2018-09-12] MEDS: BENAZEPRIL 5 MG TAB PO SCH ×2 (09:00→21:00)
[2018-09-12] MEDS: POLYETHYLENE GLYCOL 17 GM PACKET PO SCH ×2 (09:00→21:00)
[2018-09-12] MEDS ORDERED: AMLODIPINE 5 MG TAB PO SCH (09:00)
[2018-09-12] MEDS: ESCITALOPRAM 10 MG TAB PO SCH (09:46)
[2018-09-12] MEDS: POTASSIUM CHLORIDE (SR) 20 MEQ TAB PO SCH (09:46)
[2018-09-12] MEDS: DOCUSATE SODIUM 100 MG CAP PO SCH ×2 (09:46→21:00)
[2018-09-12] MEDS: ONDANSETRON 4 MG TAB PO PRN (09:47)
[2018-09-12] MEDS: oxyCODONE (CR) 20 MG TAB [oxyCONTIN] PO SCH ×2 (09:47→21:41)
[2018-09-12] MEDS: MAGNESIUM HYDROXIDE 30ML CUP PO SCH (09:50)
[2018-09-12] MEDS: ANASTROZOLE 1 MG TAB PO SCH (09:50)
--- NOTE | 2018-09-12 10:29 | PN ---
Date/Time of Note Date/Time of Note DATE: 09/12/18 TIME: 10:25 Assessment/Plan VTE Prophylaxis Risk score (from Nsg)>0 risk: 6 SCD applied (from Ns): Yes SCD contraindicated: bilateral LE trauma Pharmacological prophylaxis: LMWH Pharm contraindication: low risk/ambulating Lines/Catheters IV Catheter Type (from Nrs): Peripheral IV Central line still needed: No Urinary Cath still in place: No Reason Cath still needed: urinary retention Assessment/Plan Assessment/Plan 1. Cancer of the left breast. Exact type at this time unknown.MULTIPLE BONY METS, PULMONARY METS 2. Severe pain in the interscapular and lumbar sacral area most probably metastatic lesion possible femoral fracture. pathologic fracture of T9 with 60% of loss of height. Neurosurgical f/u. 3. Obesity. 4. Weight loss 60 pounds during the last 2 years by diet 5. PMS. 6. Myopia. 7. Anemia chronic disease with a drop of her hematocrit to 27 and regaining to 30 without any measures. Latest results 28. Protonix was added. Today hematocrit is 26. Will recheck tomorrow 8. Anxiety disorder. Claustrophobia. Increase Ativan to 1 mg every 8 as needed at Lexapro 10 mg daily. 9. Posttraumatic stress disorder. 10. Pain in the left forearm with a history of fracture of ulna and radius. 11. Tachycardia 12. Hypoxemia at night marginal improved after 2 L of nasal cannula oxygen. 13. Deconditioning 14. 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 15. Pain syndrome. Today the most painful zone is in the right hip area. X- ray did not show any fractures. 16. Hyponatremia- resolved 17. Leucopenia-improved. 18. Neutropenia with occasional fever and chills. Last chemotherapy 5 days ago. 19. Hypoalbuminemia. 20.Right sided cp after catheter insertion and correction less discomfort. 21. Decreased edema both lower extremities with hypotension-improving 22.Swelling of the left forearm-persist. Now with erythema involving mainly the dorsum of the left upper extremity. 23.S/p left (yesterday) thoracentesis with 1000cc removal yesterday.Right sided thoracentesis planned today. 24. Systolic over diastolic congestive heart failure with a right more than left lower extremity swelling with no DVT in latest venous Doppler. Result Diagram: 09/12/18 9137 09/09/18 1355 Results 24hrs Laboratory Tests Test 09/11/18 19:02 09/12/18 01:16 09/12/18 04:27 Free Thyroxine 1.54 Troponin I < 0.012 < 0.012 White Blood Count 4.7 #L Red Blood Count 3.04 L Hemoglobin 9.8 L Hematocrit 30.4 L Mean Corpuscular Volume 100.0 Mean Corpuscular Hemoglobin 32.2 Mean Corpuscular 32.2 Hemoglobin Concent Red Cell Distribution Width 15.9 H Platelet Count 87 L Mean Platelet Volume 10.4 Immature Granulocytes % 1.900 H Neutrophils % Segmented Neutrophils % (Manual) 11 L Band Neutrophils % (Manual) 53 H Lymphocytes % Lymphocytes % (Manual) 16 Reactive Lymphocytes % (Manual) 4 H Monocytes % Monocytes % (Manual) 4 Eosinophils % Basophils % Metamyelocytes % (manual) 3 H Myelocytes % (Manual) 9 H Nucleated Red Blood Cells % 0.0 Immature Granulocytes # 0.090 H Neutrophils # Neutrophils # (Manual) 0.6 L Band Neutrophils # 2.4 H Lymphocytes (Manual) 0.7 L Lymphocytes # Reactive Lymphocytes # 0.1 H Monocytes # Monocytes # (Manual) 0.1 L Eosinophils # Basophils # Metamyelocytes # 0.1 H Myelocytes # 0.4 H Nucleated Red Blood Cells # Toxic Granulation 2+ Platelet Estimate SIG DECREASED Giant Platelets 4 H Polychromasia 3+ Poikilocytosis 1+ Anisocytosis 1+ Microcytosis 1+ Ovalocytes 1+ Subjective 24 Hr Interval Summary Free Text/Dictation I am still waiting pain and getting tired when I am getting up. Edema of body persists main the left upper extremity. Positive for nausea positive for vomiting. Loss of sensation of taste of the food also loss of smell sensation. Constitutional: poor po, requiring O2, other (lodd of sence of taste and smell.); No no complaints, No improved, No chills, No diaphoresis, No disoriented, No febrile, No requiring IVF Eyes: other (paleness.); No no complaints, No pain, No discharge, No redness, No visual change ENT: No no complaints, No bleeding, No pain, No congestion, No discharge, No dysphagia, No sore throat, No other Respiratory: cough (Dry cough related to the pain in the left chest more in the right); No no complaints, No pain, No pleuritic pain, No shortness of breath, No sputum, No wheezing, No other Cardiovascular: edema, lightheadedness, orthopenea, palpitations, other (Decreased heart rate but still on and off about 100); No no complaints, No chest pain, No paroxysmal nocturnal dyspnea Gastrointestinal: constipation, decreased appetite, flatus, nausea, vomiting; No no complaints, No pain, No blood, No diarrhea, No passing stool, No other Genitourinary: dysuria, flank pain; No no complaints, No bleeding, No discharge, No hematuria, No other Musculoskeletal: back pain, bone/joint pain, neck pain; No no complaints, No restricted range of motion, No swelling, No other Skin: pruritis Neurologic: dizziness, headache; No no complaints, No confusion, No focal-weakness, No syncope, No seizure, No other Endocrine: polydypsia, dry skin; No no complaints, No polyuria, No temp intolerance, No other Lymphatic: No no complaints, No adenopathy, No tender nodes, No lymphadema, No other Psychological: anxiety, depression; No no complaints, No nl mood/affect, No confusion, No suicidal, No other Exam/Review of Systems Exam Vitals Vital Signs Date Temp Pulse Resp B/P (MAP) Pulse Ox O2 O2 Flow FiO2 Time Delivery Rate 09/12/18 98.9 107 18 102/67 92 Nasal 07:47 (79) Cannula 09/12/18 2.0 07:45 Intake and Output 09/11/18 09/11/18 09/12/18 1515:00 23:00 07:00 IntakeIntake Total 120 ml 250 ml 300 ml BalanceBalance 120 ml 250 ml 300 ml Constitutional: alert, oriented, well developed, distress, frail, obese; No non-verbal, No other Psych: anxiety, depression; No no complaints, No nl mood/affect, No confusion, No suicidal, No other Head: normocephalic, atraumatic; No lacerations, No hematomas, No other Eyes: EOMI, PERRL; No nl conjunctiva, No nl lids, No nl sclera, No icteric, No fundi, disc, No other ENMT: nl nasal mucosa & septum, tympanic membranes; No nl external ears & nose, No nl lips & teeth, No mucosa pink and moist, No intubated, No other Neck: jvd, nuchal rigidity; No supple, No non-tender, No bruits, No masses, No thyromegaly, No other Respiratory: congested cough, diminished breath sounds; No clear to auscultation, No normal air movement, No crackles/rales, No intercostal retraction, No labored breathing, No respirations, No tactile fremitus, No wheezing, No other Cardiovascular: regular rate and rhythm, jugular venous distention (JVD), systolic murmur; No nl pulses, No bruits, No diastolic murmur, No edema, No gallop, No irregular rhythm, No murmurs/extra sounds, No rub, No S3, No S4, No other Gastrointestinal: soft, nl liver, spleen, bowel sounds, distended Musculoskeletal: joint tenderness, muscle tone, muscle weakness 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: CULINARY DIRECTOR 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 Results Results 24hrs Laboratory Tests Test 09/11/18 19:02 09/12/18 01:16 09/12/18 04:27 Free Thyroxine 1.54 Troponin I < 0.012 < 0.012 White Blood Count 4.7 #L Red Blood Count 3.04 L Hemoglobin 9.8 L Hematocrit 30.4 L Mean Corpuscular Volume 100.0 Mean Corpuscular Hemoglobin 32.2 Mean Corpuscular 32.2 Hemoglobin Concent Red Cell Distribution Width 15.9 H Platelet Count 87 L Mean Platelet Volume 10.4 Immature Granulocytes % 1.900 H Neutrophils % Segmented Neutrophils % (Manual) 11 L Band Neutrophils % (Manual) 53 H Lymphocytes % Lymphocytes % (Manual) 16 Reactive Lymphocytes % (Manual) 4 H Monocytes % Monocytes % (Manual) 4 Eosinophils % Basophils % Metamyelocytes % (manual) 3 H Myelocytes % (Manual) 9 H Nucleated Red Blood Cells % 0.0 Immature Granulocytes # 0.090 H Neutrophils # Neutrophils # (Manual) 0.6 L Band Neutrophils # 2.4 H Lymphocytes (Manual) 0.7 L Lymphocytes # Reactive Lymphocytes # 0.1 H Monocytes # Monocytes # (Manual) 0.1 L Eosinophils # Basophils # Metamyelocytes # 0.1 H Myelocytes # 0.4 H Nucleated Red Blood Cells # Toxic Granulation 2+ Platelet Estimate SIG DECREASED Giant Platelets 4 H Polychromasia 3+ Poikilocytosis 1+ Anisocytosis 1+ Microcytosis 1+ Ovalocytes 1+ Medications Medication Current Medications Acetaminophen (Tylenol Tab) 500 mg Q6H PRN PO MILD PAIN(1-3)OR ELEVATED TEMP; Start 09/09/18 at 22:30 Anastrozole (Arimidex) 1 mg DAILY PO Last administered on 09/12/18 09:50; Admin Dose 1 MG; Start 09/10/18 at 09:00 Benazepril HCl (Lotensin) 5 mg BID PO Last administered on 09/11/18 09:26; Admin Dose 5 MG; Start 09/09/18 at 22:30 Carvedilol (Coreg) 3.125 mg BID PO Last administered on 09/11/18 09:26; Admin Dose 3.125 MG; Start 09/09/18 at 22:30 Docusate Sodium (Colace) 200 mg BID PO Last administered on 09/12/18 09:46; Admin Dose 200 MG; Start 09/09/18 at 22:30 Escitalopram Oxalate (Lexapro) 10 mg DAILY PO Last administered on 09/12/18 09:46; Admin Dose 10 MG; Start 09/10/18 at 09:00 Magnesium Hydroxide (Milk Of Mag) 30 ml DAILY PO Last administered on 09/12/18 09:50; Admin Dose 30 ML; Start 09/10/18 at 09:00 Ondansetron HCl (Zofran Tab) 4 mg Q6H PRN PO NAUSEA AND/OR VOMITING Last administered on 09/12/18 09:47; Admin Dose 4 MG; Start 09/09/18 at 22:30 Oxycodone HCl (Oxycontin) 20 mg Q12 PO Last administered on 09/12/18 09:47; Admin Dose 20 MG; Start 09/09/18 at 22:30 Pantoprazole (Protonix Tab) 40 mg AC BREAKFAST PO Last administered on 09/12/18 06:00; Admin Dose 40 MG; Start 09/10/18 at 07:00 Polyethylene Glycol (Miralax) 17 gm BID PO Last administered on 09/11/18 09:18; Admin Dose 17 GM; Start 09/09/18 at 22:30 Potassium Chloride (Klor-Con 20) 20 meq DAILY PO Last administered on 09/12/18 09:46; Admin Dose 20 MEQ; Start 09/10/18 at 09:00 Amlodipine Besylate (Norvasc) 5 mg DAILY PO ; Start 09/12/18 at 09:00 Furosemide (Lasix) 40 mg BID DIURETICS IV Last administered on 09/12/18at 06:00; Admin Dose 40 MG; Start 09/11/18 at 19:09 RUSS JEROME MD Sep 12, 2018 10:29
[2018-09-12 14:34] VITALS: BP 114/70; PULSE 109; RESP 20
--- NOTE | 2018-09-12 19:12 | CONS ---
Assessment/Plan Assessment/Plan Hospital Course (Demo Recall) IMPRESSION: 1. Congestive heart failure exacerbation, diastolic by most recent echo, acute on chronic.-neg trop xc 3 2. Hypotension, currently borderline-overall improved 3. Anasarca. 4. Metastatic breast carcinoma. 5. Leukopenia. 6. Thrombocytopenia.-ongoing Recc: -On med-surg -Continue Lasix diuresis as tolerated at increased dose plus now metolazone for synergy -S/p IV albumin infusion and will give another one today -Wrote hold parameters for antihypertensives to be given only as tolerated according to parameters and d/c'd norvasc given marginal BP and subsequent holding of lasix at times -will f/u echo done today to reasses EF and rule out sig pericardial effusion -Continue arimidex -consider chest CT to further characterize pulmonary pathology given very low BNP Consultation Date/Type/Reason Admit Date/Time Sep 09, 2018 at 14:53 Initial Consult Date 09/09/18 Type of Consult Cardiology Reason for Consultation CHF Requesting Provider: RUSS JEROME MD Date/Time of Note DATE: 09/12/18 TIME: 19:07 Exam/Review of Systems Vital Signs Vitals Vital Signs Date Temp Pulse Resp B/P (MAP) Pulse Ox O2 O2 Flow FiO2 Time Delivery Rate 09/12/18 98.7 109 20 114/70 95 Nasal 14:34 (85) Cannula 09/12/18 2.0 07:45 Intake and Output 09/11/18 09/11/18 09/12/18 1515:00 23:00 07:00 IntakeIntake Total 120 ml 250 ml 300 ml BalanceBalance 120 ml 250 ml 300 ml Exam Exam Review of Systems: CONSTITUTIONAL: No fevers, chills. PULMONARY: ongoing sob CARDIOVASCULAR: No chest pain/palpitations GASTROINTESTINAL: No nausea/vomiting. GENITOURINARY: No hematuria/dysuria. MUSCULOSKELETAL: No myagias/arthalgias. PSYCHIATRIC: The patient denies depression. NEUROLOGIC: mild generalized weakness Constitutional: alert Psych: no complaints Head: normocephalic ENMT: mucosa pink and moist Neck: supple, jvd (9 cm water) Respiratory: diminished breath sounds (at bases/B) Cardiovascular: regular rate and rhythm Gastrointestinal: soft, non-tender Musculoskeletal: muscle weakness (generalized) Extremities: pitting pedal edema (bilateral) 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: other (No focal deficits) Labs Result Diagram: 09/12/18 0427 09/09/18 1355 Results 24hrs Laboratory Tests Test 09/12/18 01:16 09/12/18 04:27 09/12/18 11:49 Troponin I < 0.012 < 0.012 < 0.012 White Blood Count 4.7 #L Red Blood Count 3.04 L Hemoglobin 9.8 L Hematocrit 30.4 L Mean Corpuscular Volume 100.0 Mean Corpuscular Hemoglobin 32.2 Mean Corpuscular 32.2 Hemoglobin Concent Red Cell Distribution Width 15.9 H Platelet Count 87 L Mean Platelet Volume 10.4 Immature Granulocytes % 1.900 H Neutrophils % Segmented Neutrophils % (Manual) 11 L Band Neutrophils % (Manual) 53 H Lymphocytes % Lymphocytes % (Manual) 16 Reactive Lymphocytes % (Manual) 4 H Monocytes % Monocytes % (Manual) 4 Eosinophils % Basophils % Metamyelocytes % (manual) 3 H Myelocytes % (Manual) 9 H Nucleated Red Blood Cells % 0.0 Immature Granulocytes # 0.090 H Neutrophils # Neutrophils # (Manual) 0.6 L Band Neutrophils # 2.4 H Lymphocytes (Manual) 0.7 L Lymphocytes # Reactive Lymphocytes # 0.1 H Monocytes # Monocytes # (Manual) 0.1 L Eosinophils # Basophils # Metamyelocytes # 0.1 H Myelocytes # 0.4 H Nucleated Red Blood Cells # Toxic Granulation 2+ Platelet Estimate SIG DECREASED Giant Platelets 4 H Polychromasia 3+ Poikilocytosis 1+ Anisocytosis 1+ Microcytosis 1+ Ovalocytes 1+ Medications Medications Current Medications Acetaminophen (Tylenol Tab) 500 mg Q6H PRN PO MILD PAIN(1-3)OR ELEVATED TEMP; Start 09/09/18 at 22:30 Anastrozole (Arimidex) 1 mg DAILY PO Last administered on 09/12/18at 09:50; Admin Dose 1 MG; Start 09/10/18 at 09:00 Benazepril HCl (Lotensin) 5 mg BID PO Last administered on 09/11/18at 09:26; Admin Dose 5 MG; Start 09/09/18 at 22:30 Carvedilol (Coreg) 3.125 mg BID PO Last administered on 09/11/18at 09:26; Admin Dose 3.125 MG; Start 09/09/18 at 22:30 Docusate Sodium (Colace) 200 mg BID PO Last administered on 09/12/18 09:46; Admin Dose 200 MG; Start 09/09/18 at 22:30 Escitalopram Oxalate (Lexapro) 10 mg DAILY PO Last administered on 09/12/18 09:46; Admin Dose 10 MG; Start 09/10/18 at 09:00 Magnesium Hydroxide (Milk Of Mag) 30 ml DAILY PO Last administered on 09/12/18 09:50; Admin Dose 30 ML; Start 09/10/18 at 09:00 Ondansetron HCl (Zofran Tab) 4 mg Q6H PRN PO NAUSEA AND/OR VOMITING Last administered on 09/12/18 09:47; Admin Dose 4 MG; Start 09/09/18 at 22:30 Oxycodone HCl (Oxycontin) 20 mg Q12 PO Last administered on 09/12/18 09:47; Admin Dose 20 MG; Start 09/09/18 at 22:30 Pantoprazole (Protonix Tab) 40 mg AC BREAKFAST PO Last administered on 09/12/18 06:00; Admin Dose 40 MG; Start 09/10/18 at 07:00 Polyethylene Glycol (Miralax) 17 gm BID PO Last administered on 09/11/18 09:18; Admin Dose 17 GM; Start 09/09/18 at 22:30 Potassium Chloride (Klor-Con 20) 20 meq DAILY PO Last administered on 09/12/18 09:46; Admin Dose 20 MEQ; Start 09/10/18 at 09:00 Amlodipine Besylate (Norvasc) 5 mg DAILY PO ; Start 09/12/18 at 09:00 Furosemide (Lasix) 40 mg BID DIURETICS IV Last administered on 09/12/18 18:05; Admin Dose 40 MG; Start 09/11/18 at 19:09 KAMILA TERESA 28, 2019 19:12
--- NOTE | 2018-09-12 19:33 | RADRPT ---
Echocardiogram Report Patient Name: LEANA VILLEDAPatient ID: [id number] : 1960 (58y 5m)Study Date: 09/12/2018 7:41:30 AM Gender: FAccession #: [id number] Tech: Miko Bowman [facility] Location: [id number] Ref.Physician: KAMILA HURTADO Height(Cm): BSA: Weight(Kg): Quality: AdequateAccount #: Procedures: Echocardiographic Report: Transthoracic echocardiogram examination. Indications: Congestive Heart Failure. Findings: Left Ventricle: The left ventricular ejection fraction is visually estimated at 60 %. Pericardium: Small pericardial effusion. IVC: Dilated inferior vena cava with normal respiratory collapse. Conclusions: The left ventricular ejection fraction is visually estimated at 60 %. Small pericardial effusion. Dilated inferior vena cava with normal respiratory collapse. Electronically Signed By: Kamila Hurtado 2018-09-12 19:32:11 PDT
[2018-09-12] MEDS ORDERED: ALBUMIN HUMAN 25% 50 ML IV ONE (20:30)
[2018-09-12 20:33] VITALS: BP 110/61; PULSE 100; RESP 20
--- NOTE | 2018-09-12 22:12 | CONS ---
Assessment/Plan Assessment/Plan Hospital Course (Demo Recall) METASTATIC BREAST CANCER WITH PRIMARY ADENOCARCINOMA IN the left breast. MULTIPLE BONY METS, PULMONARY METS, LIVER METS CHEMO ON HOLD PT HAS A VERY GOOD RESPONSE TO CHEMO AND AI CONT AI FOR NOW CT ABD FOR RESTAGING 08.27.18- noted , stable Leucopenia- post chemo DC NEUPOGEN monitor closely post Neutropenia with occasional fever and chills. Anemia chronic disease SOB PLEURAL EFFUSIONS thoracentesis Fluid overload diuretic cardiology consult Severe pain in the interscapular and lumbar sacral area most probably metastatic lesion possible femoral fracture. pathologic fracture of T9 with 60% of loss of height. Obesity. Weight loss 60 pounds during the last 2 years PMS. Myopia. Anxiety disorder. Claustrophobia. Posttraumatic stress disorder. Pain in the left forearm with a history of fracture of ulna and radius. Tachycardia Hypoxemia at night marginal improved after 2 L of nasal cannula oxygen. Deconditioning Pain syndrome. Today the most painful zone is in the right hip area. X-ray did not show any fractures. Hyponatremia- resolved Hypoalbuminemia Right sided cp after catheter insertion and correction less discom fort. Decreased edema both lower extremities with hypotension-improving Swelling of the left forearm-persist. Consultation Date/Type/Reason Admit Date/Time Sep 09, 2018 at 14:53 Initial Consult Date 09/09/18 Type of Consult [facility] Requesting Provider: RUSS JEROME MD Date/Time of Note DATE: 09/12/18 TIME: 22:10 24 HR Interval Summary Free Text/Dictation all noted D/w Dr Hurtado and Dr Jerome + SOB, + PAIN Exam/Review of Systems Exam Vitals Vital Signs Date Temp Pulse Resp B/P (MAP) Pulse Ox O2 O2 Flow FiO2 Time Delivery Rate 09/12/18 98.6 100 20 110/61 98 Nasal 20:33 (77) Cannula 09/12/18 2.0 07:45 Intake and Output 09/11/18 09/11/18 09/12/18 1515:00 23:00 07:00 IntakeIntake Total 120 ml 250 ml 300 ml BalanceBalance 120 ml 250 ml 300 ml Exam Constitutional: alert, oriented, well developed, distress, frail Psych: anxiety, depression; No no complaints, No nl mood/affect, No confusion, No suicidal, No other Head: normocephalic, atraumatic Eyes: EOMI, nl lids; No nl conjunctiva, No nl sclera, No PERRL, No icteric, No fundi, disc, No other ENMT: No nl external ears & nose, No nl lips & teeth, No nl nasal mucosa & septum, No mucosa pink and moist, No intubated, No tympanic membranes, No other Neck: supple, jvd, bruits; No non-tender, No masses, No thyromegaly, No nuchal rigidity, No other Respiratory: congested cough, diminished breath sounds (Left more prominent than the right side.); No clear to auscultation, No normal air movement, No crackles/rales, No intercostal retraction, No labored breathing, No respirations, No tactile fremitus, No wheezing, No other Cardiovascular: No regular rate and rhythm, No nl pulses, No bruits, No diastolic murmur, No edema, No gallop, No irregular rhythm, No jugular venous distention (JVD), No murmurs/extra sounds, No rub, No systolic murmur, No S3, No S4, No other Gastrointestinal: soft, nl liver, spleen, distended Extremities: edema (Left upper extremity more prominent in the right.) Results Result Diagram: 09/12/18 0427 09/09/18 1355 Results 24hrs Laboratory Tests Test 09/12/18 01:16 09/12/18 04:27 09/12/18 11:49 Troponin I < 0.012 < 0.012 < 0.012 White Blood Count 4.7 #L Red Blood Count 3.04 L Hemoglobin 9.8 L Hematocrit 30.4 L Mean Corpuscular Volume 100.0 Mean Corpuscular Hemoglobin 32.2 Mean Corpuscular 32.2 Hemoglobin Concent Red Cell Distribution Width 15.9 H Platelet Count 87 L Mean Platelet Volume 10.4 Immature Granulocytes % 1.900 H Neutrophils % Segmented Neutrophils % (Manual) 11 L Band Neutrophils % (Manual) 53 H Lymphocytes % Lymphocytes % (Manual) 16 Reactive Lymphocytes % (Manual) 4 H Monocytes % Monocytes % (Manual) 4 Eosinophils % Basophils % Metamyelocytes % (manual) 3 H Myelocytes % (Manual) 9 H Nucleated Red Blood Cells % 0.0 Immature Granulocytes # 0.090 H Neutrophils # Neutrophils # (Manual) 0.6 L Band Neutrophils # 2.4 H Lymphocytes (Manual) 0.7 L Lymphocytes # Reactive Lymphocytes # 0.1 H Monocytes # Monocytes # (Manual) 0.1 L Eosinophils # Basophils # Metamyelocytes # 0.1 H Myelocytes # 0.4 H Nucleated Red Blood Cells # Toxic Granulation 2+ Platelet Estimate SIG DECREASED Giant Platelets 4 H Polychromasia 3+ Poikilocytosis 1+ Anisocytosis 1+ Microcytosis 1+ Ovalocytes 1+ Medications Medication Current Medications Acetaminophen (Tylenol Tab) 500 mg Q6H PRN PO MILD PAIN(1-3)OR ELEVATED TEMP; Start 09/09/18 at 22:30 Anastrozole (Arimidex) 1 mg DAILY PO Last administered on 09/12/18 09:50; Admin Dose 1 MG; Start 09/10/18 at 09:00 Benazepril HCl (Lotensin) 5 mg BID PO Last administered on 09/11/18 09:26; Admin Dose 5 MG; Start 09/09/18 at 22:30 Carvedilol (Coreg) 3.125 mg BID PO Last administered on 09/12/18 21:36; Admin Dose 3.125 MG; Start 09/09/18 at 22:30 Docusate Sodium (Colace) 200 mg BID PO Last administered on 09/12/18 09:46; Admin Dose 200 MG; Start 09/09/18 at 22:30 Escitalopram Oxalate (Lexapro) 10 mg DAILY PO Last administered on 09/12/18 09:46; Admin Dose 10 MG; Start 09/10/18 at 09:00 Magnesium Hydroxide (Milk Of Mag) 30 ml DAILY PO Last administered on 09/12/18 09:50; Admin Dose 30 ML; Start 09/10/18 at 09:00 Ondansetron HCl (Zofran Tab) 4 mg Q6H PRN PO NAUSEA AND/OR VOMITING Last administered on 09/12/18 09:47; Admin Dose 4 MG; Start 09/09/18 at 22:30 Oxycodone HCl (Oxycontin) 20 mg Q12 PO Last administered on 09/12/18 21:41; Admin Dose 20 MG; Start 09/09/18 at 22:30 Pantoprazole (Protonix Tab) 40 mg AC BREAKFAST PO Last administered on 09/12/18 06:00; Admin Dose 40 MG; Start 09/10/18 at 07:00 Polyethylene Glycol (Miralax) 17 gm BID PO Last administered on 09/11/18 09:18; Admin Dose 17 GM; Start 09/09/18 at 22:30 Potassium Chloride (Klor-Con 20) 20 meq DAILY PO Last administered on 09/12/18at 09:46; Admin Dose 20 MEQ; Start 09/10/18 at 09:00 Furosemide (Lasix) 40 mg BID DIURETICS IV Last administered on 09/12/18at 1 8:05; Admin Dose 40 MG; Start 09/11/18 at 19:09 Metolazone (Zaroxolyn) 2.5 mg BID PO ; Start 09/13/18 at 05:30 DES DUNAWAY MD Sep 12, 2018 22:12
[2018-09-13 02:21] VITALS: BP 118/65; PULSE 88; RESP 17
[2018-09-13] MEDS: METOLAZONE 2.5 MG TAB PO SCH ×2 (05:52→20:12)
[2018-09-13] MEDS: PANTOPRAZOLE (EC) 40 MG TAB PO SCH (05:52)
[2018-09-13] MEDS: FUROSEMIDE 40 MG INJ IV SCH ×2 (06:28→17:47)
[2018-09-13 07:44] VITALS: BP 101/62; PULSE 99; RESP 18
[2018-09-13] MEDS: MAGNESIUM HYDROXIDE 30ML CUP PO SCH (08:53)
[2018-09-13] MEDS: ESCITALOPRAM 10 MG TAB PO SCH (08:53)
[2018-09-13] MEDS: POLYETHYLENE GLYCOL 17 GM PACKET PO SCH ×2 (08:53→20:13)
[2018-09-13] MEDS: oxyCODONE (CR) 20 MG TAB [oxyCONTIN] PO SCH ×2 (08:54→20:12)
[2018-09-13] MEDS: POTASSIUM CHLORIDE (SR) 20 MEQ TAB PO SCH (08:54)
[2018-09-13] MEDS: DOCUSATE SODIUM 100 MG CAP PO SCH ×2 (08:54→20:13)
[2018-09-13] MEDS: BENAZEPRIL 5 MG TAB PO SCH ×2 (08:58→20:14)
[2018-09-13] MEDS: ANASTROZOLE 1 MG TAB PO SCH (09:00)
[2018-09-13 13:33] VITALS: BP 108/71; PULSE 99; RESP 18
--- NOTE | 2018-09-13 16:03 | CONS ---
Assessment/Plan Assessment/Plan Hospital Course (Demo Recall) IMPRESSION: 1. Congestive heart failure exacerbation, diastolic by most recent echo, acute on chronic.-neg trop x 3. Echo this admit EF 60/small pericardia effusion 2. Hypotension, currently borderline-overall improved 3. Anasarca. 4. Metastatic breast carcinoma. 5. Leukopenia. 6. Thrombocytopenia.-ongoing Recc: -On med-surg -Continue Lasix diuresis as tolerated at increased dose plus metolazone for synergy -S/p IV albumin infusion and will give a third dose today with overall improved LE edema and stable BP -Wrote hold parameters for antihypertensives to be given only as tolerated according to parameters and d/c'd norvasc given marginal BP and subsequent holding of lasix at times -Continue arimidex -consider chest CT to further characterize pulmonary pathology given very low BNP -coreg as tolerated only and will likely d/c benazepril given marginal BP and being held Consultation Date/Type/Reason Admit Date/Time Sep 09, 2018 at 14:53 Initial Consult Date 09/09/18 Type of Consult Cardiology Reason for Consultation CHF Requesting Provider: RUSS JEROME MD Date/Time of Note DATE: 09/13/18 TIME: 16:00 Exam/Review of Systems Vital Signs Vitals Vital Signs Date Temp Pulse Resp B/P (MAP) Pulse Ox O2 O2 Flow FiO2 Time Delivery Rate 09/13/18 98.4 99 18 108/71 84 13:33 (83) 09/13/18 Nasal 2.0 08:05 Cannula Intake and Output 09/12/18 09/12/18 09/13/18 1515:00 23:00 07:00 IntakeIntake Total 240 ml 770 ml 620 ml BalanceBalance 240 ml 770 ml 620 ml Exam Exam Review of Systems: CONSTITUTIONAL: No fevers, chills. PULMONARY: No sob CARDIOVASCULAR: No chest pain/palpitations GASTROINTESTINAL: No nausea/vomiting. GENITOURINARY: No hematuria/dysuria. MUSCULOSKELETAL: No myagias/arthalgias. PSYCHIATRIC: The patient denies depression. NEUROLOGIC: No weakness Constitutional: alert, oriented Psych: no complaints Head: normocephalic ENMT: mucosa pink and moist Neck: supple, jvd (9 cm water) Respiratory: diminished breath sounds (at bases/B) Cardiovascular: regular rate and rhythm Gastrointestinal: soft, non-tender Musculoskeletal: muscle tone (normal) Extremities: edema (none) 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: other (No focal defcits) Labs Result Diagram: 09/13/18 0433 09/09/18 1355 Results 24hrs Laboratory Tests Test 09/13/18 04:33 White Blood Count 4.0 L Red Blood Count 2.96 L Hemoglobin 9.5 L Hematocrit 29.1 L Mean Corpuscular Volume 98.3 Mean Corpuscular Hemoglobin 32.1 Mean Corpuscular Hemoglobin Concent 32.6 Red Cell Distribution Width 15.8 H Platelet Count 88 L Mean Platelet Volume 10.3 Immature Granulocytes % 2.000 H Neutrophils % Segmented Neutrophils % (Manual) 16 L Band Neutrophils % (Manual) 46 H Lymphocytes % Lymphocytes % (Manual) 20 Reactive Lymphocytes % (Manual) 10 H Monocytes % Monocytes % (Manual) 5 Eosinophils % Basophils % Basophils % (Manual) 1 Metamyelocytes % (manual) 1 H Myelocytes % (Manual) 1 H Nucleated Red Blood Cells % 0.0 Immature Granulocytes # 0.080 H Neutrophils # Neutrophils # (Manual) 0.7 L Band Neutrophils # 1.8 H Lymphocytes (Manual) 0.8 Lymphocytes # Reactive Lymphocytes # 0.4 H Monocytes # Monocytes # (Manual) 0.2 L Eosinophils # Basophils # Basophils # (Manual) 0.0 Metamyelocytes # 0.0 Myelocytes # 0.0 Nucleated Red Blood Cells # Toxic Granulation 1+ Platelet Estimate DECREASED Polychromasia 2+ Anisocytosis 1+ Microcytosis 1+ Spherocytes 1+ Medications Medications Current Medications Acetaminophen (Tylenol Tab) 500 mg Q6H PRN PO MILD PAIN(1-3)OR ELEVATED TEMP; Start 09/09/18 at 22:30 Anastrozole (Arimidex) 1 mg DAILY PO Last administered on 09/13/18at 09:00; Admin Dose 1 MG; Start 09/10/18 at 09:00 Benazepril HCl (Lotensin) 5 mg BID PO Last administered on 09/11/18at 09:26; Admin Dose 5 MG; Start 09/09/18 at 22:30 Carvedilol (Coreg) 3.125 mg BID PO Last administered on 09/11/18at 09:26; Admin Dose 3.125 MG; Start 09/09/18 at 22:30 Docusate Sodium (Colace) 200 mg BID PO Last administered on 09/13/18 08:54; Admin Dose 200 MG; Start 09/09/18 at 22:30 Escitalopram Oxalate (Lexapro) 10 mg DAILY PO Last administered on 09/13/18 08:53; Admin Dose 10 MG; Start 09/10/18 at 09:00 Magnesium Hydroxide (Milk Of Mag) 30 ml DAILY PO Last administered on 09/13/18 08:53; Admin Dose 30 ML; Start 09/10/18 at 09:00 Ondansetron HCl (Zofran Tab) 4 mg Q6H PRN PO NAUSEA AND/OR VOMITING Last administered on 09/12/18 09:47; Admin Dose 4 MG; Start 09/09/18 at 22:30 Oxycodone HCl (Oxycontin) 20 mg Q12 PO Last administered on 09/13/18 08:54; Admin Dose 20 MG; Start 09/09/18 at 22:30 Pantoprazole (Protonix Tab) 40 mg AC BREAKFAST PO Last administered on 09/13/18 05:52; Admin Dose 40 MG; Start 09/10/18 at 07:00 Polyethylene Glycol (Miralax) 17 gm BID PO Last administered on 09/13/18 08:53; Admin Dose 17 GM; Start 09/09/18 at 22:30 Potassium Chloride (Klor-Con 20) 20 meq DAILY PO Last administered on 09/13/18 08:54; Admin Dose 20 MEQ; Start 09/10/18 at 09:00 Furosemide (Lasix) 40 mg BID DIURETICS IV Last administered on 09/13/18 06:28; Admin Dose 40 MG; Start 09/11/18 at 19:09 Metolazone (Zaroxolyn) 2.5 mg BID PO Last administered on 09/13/18 05:52; Admin Dose 2.5 MG; Start 09/13/18 at 05:30 KAMILA TERESA [birth year], 2019 16:03
[2018-09-13] MEDS ORDERED: ALBUMIN HUMAN 25% 50 ML IV ONE (17:30)
--- NOTE | 2018-09-13 17:45 | PN ---
Date/Time of Note Date/Time of Note DATE: 09/13/18 TIME: 17:41 Assessment/Plan VTE Prophylaxis Risk score (from Nsg)>0 risk: 8 SCD applied (from Nsg): Yes SCD contraindicated: low risk/ambulating Pharmacological prophylaxis: LMWH Lines/Catheters IV Catheter Type (from Nrsg): Peripheral IV Central line still needed: No Urinary Cath still in place: No Reason Cath still needed: urinary retention Assessment/Plan Assessment/Plan 1. Cancer of the left breast. Exact type at this time unknown.MULTIPLE BONY METS, PULMONARY METS 2. Severe pain in the interscapular and lumbar sacral area most probably metastatic lesion possible femoral fracture. pathologic fracture of T9 with 60% of loss of height. Neurosurgical f/u. 3. Obesity. 4. Weight loss 60 pounds during the last 2 years by diet 5. PMS. 6. Myopia. 7. Anemia chronic disease with a drop of her hematocrit to 27 and regaining to 30 without any measures. Latest results 28. Protonix was added. Today hematocrit is 26. Will recheck tomorrow 8. Anxiety disorder. Claustrophobia. Increase Ativan to 1 mg every 8 as needed at Lexapro 10 mg daily. 9. Posttraumatic stress disorder. 10. Pain in the left forearm with a history of fracture of ulna and radius. 11. Tachycardia 12. Hypoxemia at night marginal improved after 2 L of nasal cannula oxygen. 13. Deconditioning 14. 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 15. Pain syndrome. Today the most painful zone is in the right hip area. X- ray did not show any fractures. 16. Hyponatremia- resolved 17. Leucopenia-improved. 18. Neutropenia with occasional fever and chills. Last chemotherapy 5 days ago. 19. Hypoalbuminemia. 20.Right sided cp after catheter insertion and correction less discomfort. 21. Decreased edema both lower extremities with hypotension-improving 22.Swelling of the left forearm-persist. Now with erythema involving mainly the dorsum of the left upper extremity. 23.S/p left (yesterday) thoracentesis with 1000cc removal yesterday.Right sided thoracentesis planned today. 24. Systolic over diastolic congestive heart failure with a right more than left lower extremity swelling with no DVT in latest venous Doppler. Result Diagram: 09/13/18 1283 09/09/18 1355 Results 24hrs Laboratory Tests Test 09/13/18 04:33 White Blood Count 4.0 L Red Blood Count 2.96 L Hemoglobin 9.5 L Hematocrit 29.1 L Mean Corpuscular Volume 98.3 Mean Corpuscular Hemoglobin 32.1 Mean Corpuscular Hemoglobin Concent 32.6 Red Cell Distribution Width 15.8 H Platelet Count 88 L Mean Platelet Volume 10.3 Immature Granulocytes % 2.000 H Neutrophils % Segmented Neutrophils % (Manual) 16 L Band Neutrophils % (Manual) 46 H Lymphocytes % Lymphocytes % (Manual) 20 Reactive Lymphocytes % (Manual) 10 H Monocytes % Monocytes % (Manual) 5 Eosinophils % Basophils % Basophils % (Manual) 1 Metamyelocytes % (manual) 1 H Myelocytes % (Manual) 1 H Nucleated Red Blood Cells % 0.0 Immature Granulocytes # 0.080 H Neutrophils # Neutrophils # (Manual) 0.7 L Band Neutrophils # 1.8 H Lymphocytes (Manual) 0.8 Lymphocytes # Reactive Lymphocytes # 0.4 H Monocytes # Monocytes # (Manual) 0.2 L Eosinophils # Basophils # Basophils # (Manual) 0.0 Metamyelocytes # 0.0 Myelocytes # 0.0 Nucleated Red Blood Cells # Toxic Granulation 1+ Platelet Estimate DECREASED Polychromasia 2+ Anisocytosis 1+ Microcytosis 1+ Spherocytes 1+ Subjective 24 Hr Interval Summary Free Text/Dictation Swelling of the left upper extremity had decreased. Significantly less redness almost host of this disappearance of redness in the distal part dorsum of the left hand mildly red in the forearm region dorsolaterally of left upper extremity. No fever and chills. Anasarca persists. She had more urine output today than before. Constitutional: disoriented, poor po, requiring IVF, requiring O2; No no complaints, No improved, No chills, No diaphoresis, No febrile, No other Eyes: No no complaints, No pain, No discharge, No redness, No visual change, No other ENT: No no complaints, No bleeding, No pain, No congestion, No discharge, No dysphagia, No sore throat, No other Respiratory: cough, pleuritic pain, shortness of breath; No no complaints, No pain, No sputum, No wheezing, No other Cardiovascular: chest pain, lightheadedness, orthopenea; No no complaints, No edema, No palpitations, No paroxysmal nocturnal dyspnea, No other Gastrointestinal: constipation, passing stool; No no complaints, No pain, No blood, No decreased appetite, No diarrhea, No flatus, No nausea, No vomiting, No other Genitourinary: dysuria; No no complaints, No bleeding, No discharge, No flank pain, No hematuria, No other Musculoskeletal: back pain, bone/joint pain, neck pain Skin: pruritis; No no complaints, No bruising, No erythema, No laceration, No rash, No skin lesions, No other Neurologic: dizziness, headache; No no complaints, No confusion, No focal-weakness, No syncope, No seizure, No other Exam/Review of Systems Exam Vitals Vital Signs Date Temp Pulse Resp B/P (MAP) Pulse Ox O2 O2 Flow FiO2 Time Delivery Rate 09/13/18 98.4 99 18 108/71 84 13:33 (83) 09/13/18 Nasal 2.0 08:05 Cannula Intake and Output 09/12/18 09/12/18 09/13/18 1414:59 22:59 06:59 IntakeIntake Total 240 ml 770 ml 620 ml BalanceBalance 240 ml 770 ml 620 ml Constitutional: alert, oriented, well developed, distress, frail, obese; No non-verbal, No other Psych: anxiety, depression; No no complaints, No nl mood/affect, No confusion, No suicidal, No other Head: normocephalic, atraumatic; No lacerations, No hematomas, No other Eyes: EOMI, nl lids, PERRL; No nl conjunctiva, No nl sclera, No icteric, No fundi, disc, No other ENMT: No nl external ears & nose, No nl lips & teeth, No nl nasal mucosa & septum, No mucosa pink and moist, No intubated, No tympanic membranes, No other Neck: non-tender, bruits, thyromegaly, nuchal rigidity; No supple, No jvd, No masses, No other Respiratory: congested cough, crackles/rales, diminished breath sounds, labored breathing; No clear to auscultation, No normal air movement, No intercostal retraction, No respirations, No tactile fremitus, No wheezing, No other Cardiovascular: regular rate and rhythm, bruits, systolic murmur; No nl pulses, No diastolic murmur, No edema, No gallop, No irregular rhythm, No jugular venous distention (JVD), No murmurs/extra sounds, No rub, No S3, No S4, No other Gastrointestinal: soft, bowel sounds, distended, hepatomegaly; No nl liver, spleen, No non-tender, No ascites, No firm, No mass, No rebound or guarding, No splenomegaly, No surgical scars, No tender, No other Genitourinary - Female: No nl adnexae, No nl external genitalia, No CMT, No CVA tenderness, No uterus, No other Musculoskeletal: joint tenderness, muscle tone, muscle weakness, range of motion Extremities: normal pulses, edema, other (Left upper extremity with almost total disappearance of redness.); No calf tenderness, No cyanosis, No clubbing, No pitting pedal edema, No palpable cord, No tenderness 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: numbness Results Results 24hrs Laboratory Tests Test 09/13/18 04:33 White Blood Count 4.0 L Red Blood Count 2.96 L Hemoglobin 9.5 L Hematocrit 29.1 L Mean Corpuscular Volume 98.3 Mean Corpuscular Hemoglobin 32.1 Mean Corpuscular Hemoglobin Concent 32.6 Red Cell Distribution Width 15.8 H Platelet Count 88 L Mean Platelet Volume 10.3 Immature Granulocytes % 2.000 H Neutrophils % Segmented Neutrophils % (Manual) 16 L Band Neutrophils % (Manual) 46 H Lymphocytes % Lymphocytes % (Manual) 20 Reactive Lymphocytes % (Manual) 10 H Monocytes % Monocytes % (Manual) 5 Eosinophils % Basophils % Basophils % (Manual) 1 Metamyelocytes % (manual) 1 H Myelocytes % (Manual) 1 H Nucleated Red Blood Cells % 0.0 Immature Granulocytes # 0.080 H Neutrophils # Neutrophils # (Manual) 0.7 L Band Neutrophils # 1.8 H Lymphocytes (Manual) 0.8 Lymphocytes # Reactive Lymphocytes # 0.4 H Monocytes # Monocytes # (Manual) 0.2 L Eosinophils # Basophils # Basophils # (Manual) 0.0 Metamyelocytes # 0.0 Myelocytes # 0.0 Nucleated Red Blood Cells # Toxic Granulation 1+ Platelet Estimate DECREASED Polychromasia 2+ Anisocytosis 1+ Microcytosis 1+ Spherocytes 1+ Medications Medication Current Medications Acetaminophen (Tylenol Tab) 500 mg Q6H PRN PO MILD PAIN(1-3)OR ELEVATED TEMP; Start 09/09/18 at 22:30 Anastrozole (Arimidex) 1 mg DAILY PO Last administered on 09/13/18 09:00; Admin Dose 1 MG; Start 09/10/18 at 09:00 Benazepril HCl (Lotensin) 5 mg BID PO Last administered on 09/11/18 09:26; Admin Dose 5 MG; Start 09/09/18 at 22:30 Carvedilol (Coreg) 3.125 mg BID PO Last administered on 09/11/18 09:26; Admin Dose 3.125 MG; Start 09/09/18 at 22:30 Docusate Sodium (Colace) 200 mg BID PO Last administered on 09/13/18 08:54; Admin Dose 200 MG; Start 09/09/18 at 22:30 Escitalopram Oxalate (Lexapro) 10 mg DAILY PO Last administered on 09/13/18 08:53; Admin Dose 10 MG; Start 09/10/18 at 09:00 Magnesium Hydroxide (Milk Of Mag) 30 ml DAILY PO Last administered on 09/13/18 08:53; Admin Dose 30 ML; Start 09/10/18 at 09:00 Ondansetron HCl (Zofran Tab) 4 mg Q6H PRN PO NAUSEA AND/OR VOMITING Last administered on 09/12/18 09:47; Admin Dose 4 MG; Start 09/09/18 at 22:30 Oxycodone HCl (Oxycontin) 20 mg Q12 PO Last administered on 09/13/18 08:54; Admin Dose 20 MG; Start 09/09/18 at 22:30 Pantoprazole (Protonix Tab) 40 mg AC BREAKFAST PO Last administered on 09/13/18 05:52; Admin Dose 40 MG; Start 09/10/18 at 07:00 Polyethylene Glycol (Miralax) 17 gm BID PO Last administered on 09/13/18 08:53; Admin Dose 17 GM; Start 09/09/18 at 22:30 Potassium Chloride (Klor-Con 20) 20 meq DAILY PO Last administered on 09/13/18 08:54; Admin Dose 20 MEQ; Start 09/10/18 at 09:00 Furosemide (Lasix) 40 mg BID DIURETICS IV Last administered on 09/13/18 06 :28; Admin Dose 40 MG; Start 09/11/18 at 19:09 Metolazone (Zaroxolyn) 2.5 mg BID PO Last administered on 09/13/18at 05:52; Admin Dose 2.5 MG; Start 09/13/18 at 05:30 Albumin Human 50 ml @ 100 mls/hr ONCE ONCE IV Last administered on 09/13/18at 17:02; Admin Dose 100 MLS/HR; Start 09/13/18 at 17:30; Stop 09/13/18 at 17:59 RUSS JEROME MD Sep 13, 2018 17:45
[2018-09-13] MEDS: SPIRONOLACTONE 50 MG TAB PO SCH (19:09)
[2018-09-13 19:41] VITALS: BP 125/75; PULSE 106; RESP 18
--- NOTE | 2018-09-13 22:17 | CONS ---
Assessment/Plan Assessment/Plan Hospital Course (Demo Recall) METASTATIC BREAST CANCER WITH PRIMARY ADENOCARCINOMA IN the left breast. MULTIPLE BONY METS, PULMONARY METS, LIVER METS CHEMO ON HOLD PT HAS A VERY GOOD RESPONSE TO CHEMO AND AI CONT AI FOR NOW CT ABD FOR RESTAGING 08.27.18- noted , stable ORDER CT CHEST Leucopenia- post chemo DC NEUPOGEN monitor closely post Neutropenia with occasional fever and chills. Anemia chronic disease SOB PLEURAL EFFUSIONS thoracentesis Fluid overload diuretic cardiology consult Congestive heart failure exacerbation, diastolic by most recent echo, acute on chronic.-neg trop x 3. Echo this admit EF 60/small pericardia effusion Hypotension, currently borderline-overall improved Anasarca. Severe pain in the interscapular and lumbar sacral area most probably metastatic lesion possible femoral fracture. pathologic fracture of T9 with 60% of loss of height. Obesity. Weight loss 60 pounds during the last 2 years PMS. Myopia. Anxiety disorder. Claustrophobia. Posttraumatic stress disorder. Pain in the left forearm with a history of fracture of ulna and radius. Tachycardia Hypoxemia at night marginal improved after 2 L of nasal cannula oxygen. Deconditioning Pain syndrome. Today the most painful zone is in the right hip area. X-ray did not show any fractures. Hyponatremia- resolved Hypoalbuminemia Right sided cp after catheter insertion and correction less discomfort. Decreased edema both lower extremities with hypotension-improving Swelling of the left forearm-persist. Consultation Date/Type/Reason Admit Date/Time Sep 09, 2018 at 14:53 Initial Consult Date 09/09/18 Type of Consult [facility] [place] Requesting Provider: RUSS JEROME MD Date/Time of Note DATE: 09/13/18 TIME: 22:15 24 HR Interval Summary Free Text/Dictation all noted NAD Exam/Review of Systems Exam Vitals Vital Signs Date Temp Pulse Resp B/P (MAP) Pulse Ox O2 O2 Flow FiO2 Time Delivery Rate 09/13/18 Nasal 2.0 20:56 Cannula 09/13/18 98.1 106 18 125/75 97 19:41 (92) Intake and Output 09/12/18 09/12/18 09/13/18 1515:00 23:00 07:00 IntakeIntake Total 240 ml 770 ml 620 ml BalanceBalance 240 ml 770 ml 620 ml Exam Constitutional: alert, oriented, well developed, distress, frail Psych: anxiety, depression; No no complaints, No nl mood/affect, No confusion, No suicidal, No other Head: normocephalic, atraumatic Eyes: EOMI, nl lids; No nl conjunctiva, No nl sclera, No PERRL, No icteric, No fundi, disc, No other ENMT: No nl external ears & nose, No nl lips & teeth, No nl nasal mucosa & septum, No mucosa pink and moist, No intubated, No tympanic membranes, No other Neck: supple, jvd, bruits; No non-tender, No masses, No thyromegaly, No nuchal rigidity, No other Respiratory: congested cough, diminished breath sounds (Left more prominent than the right side.); No clear to auscultation, No normal air movement, No crackles/rales, No intercostal retraction, No labored breathing, No respirations, No tactile fremitus, No wheezing, No other Cardiovascular: No regular rate and rhythm, No nl pulses, No bruits, No diastolic murmur, No edema, No gallop, No irregular rhythm, No jugular venous distention (JVD), No murmurs/extra sounds, No rub, No systolic murmur, No S3, No S4, No other Gastrointestinal: soft, nl liver, spleen, distended Extremities: edema (Left upper extremity more prominent in the right.) Results Result Diagram: 09/13/18 0433 09/09/18 1355 Results 24hrs Laboratory Tests Test 09/13/18 04:33 White Blood Count 4.0 L Red Blood Count 2.96 L Hemoglobin 9.5 L Hematocrit 29.1 L Mean Corpuscular Volume 98.3 Mean Corpuscular Hemoglobin 32.1 Mean Corpuscular Hemoglobin Concent 32.6 Red Cell Distribution Width 15.8 H Platelet Count 88 L Mean Platelet Volume 10.3 Immature Granulocytes % 2.000 H Neutrophils % Segmented Neutrophils % (Manual) 16 L Band Neutrophils % (Manual) 46 H Lymphocytes % Lymphocytes % (Manual) 20 Reactive Lymphocytes % (Manual) 10 H Monocytes % Monocytes % (Manual) 5 Eosinophils % Basophils % Basophils % (Manual) 1 Metamyelocytes % (manual) 1 H Myelocytes % (Manual) 1 H Nucleated Red Blood Cells % 0.0 Immature Granulocytes # 0.080 H Neutrophils # Neutrophils # (Manual) 0.7 L Band Neutrophils # 1.8 H Lymphocytes (Manual) 0.8 Lymphocytes # Reactive Lymphocytes # 0.4 H Monocytes # Monocytes # (Manual) 0.2 L Eosinophils # Basophils # Basophils # (Manual) 0.0 Metamyelocytes # 0.0 Myelocytes # 0.0 Nucleated Red Blood Cells # Toxic Granulation 1+ Platelet Estimate DECREASED Polychromasia 2+ Anisocytosis 1+ Microcytosis 1+ Spherocytes 1+ Medications Medication Current Medications Acetaminophen (Tylenol Tab) 500 mg Q6H PRN PO MILD PAIN(1-3)OR ELEVATED TEMP; Start 09/09/18 at 22:30 Anastrozole (Arimidex) 1 mg DAILY PO Last administered on 09/13/18 09:00; Admin Dose 1 MG; Start 09/10/18 at 09:00 Benazepril HCl (Lotensin) 5 mg BID PO Last administered on 09/11/18 09:26; Admin Dose 5 MG; Start 09/09/18 at 22:30 Carvedilol (Coreg) 3.125 mg BID PO Last administered on 09/13/18 20:13; Admin Dose 3.125 MG; Start 09/09/18 at 22:30 Docusate Sodium (Colace) 200 mg BID PO Last administered on 09/13/18 08:54; Admin Dose 200 MG; Start 09/09/18 at 22:30 Escitalopram Oxalate (Lexapro) 10 mg DAILY PO Last administered on 09/13/18 08:53; Admin Dose 10 MG; Start 09/10/18 at 09:00 Magnesium Hydroxide (Milk Of Mag) 30 ml DAILY PO Last administered on 09/13/18 08:53; Admin Dose 30 ML; Start 09/10/18 at 09:00 Ondansetron HCl (Zofran Tab) 4 mg Q6H PRN PO NAUSEA AND/OR VOMITING Last admini stered on 09/12/18 09:47; Admin Dose 4 MG; Start 09/09/18 at 22:30 Oxycodone HCl (Oxycontin) 20 mg Q12 PO Last administered on 09/13/18 20:12; Admin Dose 20 MG; Start 09/09/18 at 22:30 Pantoprazole (Protonix Tab) 40 mg AC BREAKFAST PO Last administered on 09/13/18 05:52; Admin Dose 40 MG; Start 09/10/18 at 07:00 Polyethylene Glycol (Miralax) 17 gm BID PO Last administered on 09/13/18 08:53 ; Admin Dose 17 GM; Start 09/09/18 at 22:30 Potassium Chloride (Klor-Con 20) 20 meq DAILY PO Last administered on 09/13/18 08:54; Admin Dose 20 MEQ; Start 09/10/18 at 09:00 Furosemide (Lasix) 40 mg BID DIURETICS IV Last administered on 09/13/18 17:47; Admin Dose 40 MG; Start 09/11/18 at 19:09 Metolazone (Zaroxolyn) 2.5 mg BID PO Last administered on 09/13/18 20:12; Admin Dose 2.5 MG; Start 09/13/18 at 05:30 Spironolactone (Aldactone) 50 mg DAILY PO Last administered on 09/13/18 19:09; Admin Dose 50 MG; Start 09/13/18 at 18:00 DES DUNAWAY MD Sep 13, 2018 22:17
[2018-09-14 01:25] VITALS: BP 128/77; PULSE 100; RESP 20
[2018-09-14] MEDS: FUROSEMIDE 40 MG INJ IV SCH ×2 (06:28→18:02)
[2018-09-14 07:25] VITALS: BP 113/69; PULSE 96
[2018-09-14] MEDS: DOCUSATE SODIUM 100 MG CAP PO SCH ×2 (08:36→20:46)
[2018-09-14] MEDS: oxyCODONE (CR) 20 MG TAB [oxyCONTIN] PO SCH ×2 (08:36→20:53)
[2018-09-14] MEDS: POLYETHYLENE GLYCOL 17 GM PACKET PO SCH ×2 (08:36→21:00)
[2018-09-14] MEDS: ESCITALOPRAM 10 MG TAB PO SCH (08:37)
[2018-09-14] MEDS: PANTOPRAZOLE (EC) 40 MG TAB PO SCH (08:37)
[2018-09-14] MEDS: BENAZEPRIL 5 MG TAB PO SCH ×2 (08:38→20:48)
[2018-09-14] MEDS: POTASSIUM CHLORIDE (SR) 20 MEQ TAB PO SCH (08:38)
[2018-09-14] MEDS: SPIRONOLACTONE 50 MG TAB PO SCH (08:39)
[2018-09-14] MEDS: METOLAZONE 2.5 MG TAB PO SCH ×2 (08:40→20:47)
[2018-09-14] MEDS: ANASTROZOLE 1 MG TAB PO SCH (08:42)
[2018-09-14] MEDS: MAGNESIUM HYDROXIDE 30ML CUP PO SCH (08:45)
--- NOTE | 2018-09-14 08:52 | PN ---
Date/Time of Note Date/Time of Note DATE: 09/14/18 TIME: 08:51 Assessment/Plan VTE Prophylaxis Risk score (from Nsg)>0 risk: 3 SCD applied (from Ns): Yes SCD contraindicated: other (More active able to walk with one person's help.) Pharmacological prophylaxis: LMWH Pharm contraindication: low risk/ambulating, other (Weakness is predisposing to goal but she is able to do it will continue encourage. Advised to walk in the presence of a physical therapist.) Lines/Catheters IV Catheter Type (from Nrs): Central Line Central line still needed: No Urinary Cath still in place: No Reason Cath still needed: urinary retention Assessment/Plan Assessment/Plan 1. Cancer of the left breast. Exact type at this time unknown.MULTIPLE BONY METS, PULMONARY METS 2. Severe pain in the interscapular and lumbar sacral area most probably metastatic lesion possible femoral fracture. pathologic fracture of T9 with 60% of loss of height. Neurosurgical f/u. 3. Obesity. 4. Weight loss 60 pounds during the last 2 years by diet 5. PMS. 6. Myopia. 7. Anemia chronic disease with a drop of her hematocrit to 27 and regaining to 30 without any measures. Latest results 28. Protonix was added. Today hematocrit is 26. Will recheck tomorrow 8. Anxiety disorder. Claustrophobia. Increase Ativan to 1 mg every 8 as needed at Lexapro 10 mg daily. 9. Posttraumatic stress disorder. 10. Pain in the left forearm with a history of fracture of ulna and radius. 11. Tachycardia 12. Hypoxemia at night marginal improved after 2 L of nasal cannula oxygen. 13. Deconditioning 14. 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 15. Pain syndrome. Today the most painful zone is in the right hip area. X- ray did not show any fractures. 16. Hyponatremia-reoccurred. 17. Leucopenia-improved. 18. Neutropenia with occasional fever and chills. Last chemotherapy 5 days ago. 19. Hypoalbuminemia. Hypokalemia. Hyponatremia 20.Right sided cp after catheter insertion and correction less discomfort. 21. Decreased edema both lower extremities with hypotension-improving 22.Swelling of the left forearm-persist. Now with erythema involving mainly the dorsum of the left upper extremity. 23.hydrothorax. Plan another thoracentesis after CT of the chest. 24. Systolic over diastolic congestive heart failure with a right more than left lower extremity swelling with no DVT in latest venous Doppler. Result Diagram: 09/14/18 0427 09/14/18 0427 Results 24hrs Laboratory Tests Test 09/14/18 04:27 White Blood Count 4.1 L Red Blood Count 3.07 L Hemoglobin 9.8 L Hematocrit 29.7 L Mean Corpuscular Volume 96.7 Mean Corpuscular Hemoglobin 31.9 Mean Corpuscular Hemoglobin Concent 33.0 Red Cell Distribution Width 15.8 H Platelet Count 106 #L Mean Platelet Volume 9.8 Immature Granulocytes % 1.500 H Neutrophils % Segmented Neutrophils % (Manual) 29 L Band Neutrophils % (Manual) 28 H Lymphocytes % Lymphocytes % (Manual) 19 Reactive Lymphocytes % (Manual) 13 H Monocytes % Monocytes % (Manual) 9 Eosinophils % Basophils % Myelocytes % (Manual) 2 H Nucleated Red Blood Cells % 3 H Immature Granulocytes # 0.060 H Neutrophils # Neutrophils # (Manual) 1.2 L Band Neutrophils # 1.1 H Lymphocytes (Manual) 0.7 L Lymphocytes # Reactive Lymphocytes # 0.5 H Monocytes # Monocytes # (Manual) 0.3 Eosinophils # Basophils # Myelocytes # 0.0 Nucleated Red Blood Cells # Platelet Estimate DECREASED Polychromasia 3+ Poikilocytosis 1+ Anisocytosis 2+ Microcytosis 2+ Ovalocytes 1+ Stomatocytes 1+ Sodium Level 132 L Potassium Level 3.0 L Chloride Level 90 L Carbon Dioxide Level 34 H Anion Gap 8 Blood Urea Nitrogen 13 Creatinine 0.66 Est Glomerular Filtrat Rate mL/min > 60 Glucose Level 99 Calcium Level 8.2 L Total Bilirubin 0.5 Direct Bilirubin 0.00 Indirect Bilirubin 0.5 Aspartate Amino Transf (AST/SGOT) 32 Alanine Aminotransferase (ALT/SGPT) 22 Alkaline Phosphatase 67 Total Protein 5.2 L Albumin 2.8 L Globulin 2.40 Albumin/Globulin Ratio 1.16 Subjective 24 Hr Interval Summary Free Text/Dictation Mildly decreased edema. Improved shortness of breath. Using the incentive spirometry better. Still continues to be weak but able to walk with support. Constitutional: chills, disoriented, poor po, requiring IVF; No no complaints, No improved, No diaphoresis, No febrile, No requiring O2, No other Eyes: visual change; No no complaints, No pain, No discharge, No redness, No other ENT: congestion, discharge; No no complaints, No bleeding, No pain, No dysphagia, No sore throat, No other Respiratory: cough, pleuritic pain, shortness of breath; No no complaints, No pain, No sputum, No wheezing, No other Cardiovascular: edema, lightheadedness, orthopenea, palpitations, paroxysmal nocturnal dyspnea; No no complaints, No chest pain, No other Gastrointestinal: constipation, flatus; No no complaints, No pain, No blood, No decreased appetite, No diarrhea, No nausea, No passing stool, No vomiting, No other Musculoskeletal: back pain, bone/joint pain, neck pain; No no complaints, No restricted range of motion, No swelling, No other Skin: pruritis, rash; No no complaints, No bruising, No erythema, No laceration, No skin lesions, No other Neurologic: dizziness, headache; No no complaints, No confusion, No focal-weakness, No syncope, No seizure, No other Lymphatic: No no complaints, No adenopathy, No tender nodes, No lymphadema, No other Psychological: anxiety, depression; No no complaints, No nl mood/affect, No confusion, No suicidal, No other Exam/Review of Systems Exam Vitals Vital Signs Date Temp Pulse Resp B/P (MAP) Pulse Ox O2 O2 Flow FiO2 Time Delivery Rate 09/14/18 98.4 96 113/69 75 07:25 (84) 09/14/18 20 Nasal 01:25 Cannula 09/13/18 2.0 20:56 Intake and Output 09/13/18 09/13/18 09/14/18 1515:00 23:00 07:00 IntakeIntake Total 150 ml 900 ml OutputOutput Total 1200 ml 200 ml 500 ml BalanceBalance -1200 ml -50 ml 400 ml Constitutional: alert, oriented, well developed, distress, frail, obese Psych: nl mood/affect, anxiety, depression; No no complaints, No confusion, No suicidal, No other Head: normocephalic, atraumatic; No lacerations, No hematomas, No other Eyes: EOMI, nl lids, PERRL ENMT: No nl external ears & nose, No nl lips & teeth, No nl nasal mucosa & septum, No mucosa pink and moist, No intubated, No tympanic membranes, No other Neck: non-tender, jvd, nuchal rigidity; No supple, No bruits, No masses, No thyromegaly, No other Respiratory: normal air movement, congested cough, diminished breath sounds Cardiovascular: regular rate and rhythm, bruits, edema, irregular rhythm, jugular venous distention (JVD); No nl pulses, No diastolic murmur, No gallop, No murmurs/extra sounds, No rub, No systolic murmur, No S3, No S4, No other Gastrointestinal: soft, nl liver, spleen, bowel sounds, distended, tender; No non-tender, No ascites, No firm, No hepatomegaly, No mass, No rebound or guarding, No splenomegaly, No surgical scars, No other Genitourinary - Female: No nl adnexae, No nl external genitalia, No CMT, No CVA tenderness, No uterus, No other Musculoskeletal: joint tenderness, muscle tone, muscle weakness; No nl extremities to inspection, No nl gait and stance, No range of motion, No spine non-tender, No swelling, No other 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: [employer] 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, nl mental status, nl speech; No nl strength, No confused, No DTR's symmetric, No focal weakness, No lethargic, No numbness, No reflexes, No unresponsive, No other Results Results 24hrs Laboratory Tests Test 09/14/18 04:27 White Blood Count 4.1 L Red Blood Count 3.07 L Hemoglobin 9.8 L Hematocrit 29.7 L Mean Corpuscular Volume 96.7 Mean Corpuscular Hemoglobin 31.9 Mean Corpuscular Hemoglobin Concent 33.0 Red Cell Distribution Width 15.8 H Platelet Count 106 #L Mean Platelet Volume 9.8 Immature Granulocytes % 1.500 H Neutrophils % Segmented Neutrophils % (Manual) 29 L Band Neutrophils % (Manual) 28 H Lymphocytes % Lymphocytes % (Manual) 19 Reactive Lymphocytes % (Manual) 13 H Monocytes % Monocytes % (Manual) 9 Eosinophils % Basophils % Myelocytes % (Manual) 2 H Nucleated Red Blood Cells % 3 H Immature Granulocytes # 0.060 H Neutrophils # Neutrophils # (Manual) 1.2 L Band Neutrophils # 1.1 H Lymphocytes (Manual) 0.7 L Lymphocytes # Reactive Lymphocytes # 0.5 H Monocytes # Monocytes # (Manual) 0.3 Eosinophils # Basophils # Myelocytes # 0.0 Nucleated Red Blood Cells # Platelet Estimate DECREASED Polychromasia 3+ Poikilocytosis 1+ Anisocytosis 2+ Microcytosis 2+ Ovalocytes 1+ Stomatocytes 1+ Sodium Level 132 L Potassium Level 3.0 L Chloride Level 90 L Carbon Dioxide Level 34 H Anion Gap 8 Blood Urea Nitrogen 13 Creatinine 0.66 Est Glomerular Filtrat Rate mL/min > 60 Glucose Level 99 Calcium Level 8.2 L Total Bilirubin 0.5 Direct Bilirubin 0.00 Indirect Bilirubin 0.5 Aspartate Amino Transf (AST/SGOT) 32 Alanine Aminotransferase (ALT/SGPT) 22 Alkaline Phosphatase 67 Total Protein 5.2 L Albumin 2.8 L Globulin 2.40 Albumin/Globulin Ratio 1.16 Medications Medication Current Medications Acetaminophen (Tylenol Tab) 500 mg Q6H PRN PO MILD PAIN(1-3)OR ELEVATED TEMP; Start 09/09/18 at 22:30 Anastrozole (Arimidex) 1 mg DAILY PO Last administered on 09/14/18 08:42; Admin Dose 1 MG; Start 09/10/18 at 09:00 Benazepril HCl (Lotensin) 5 mg BID PO Last administered on 09/11/18 09:26; Admin Dose 5 MG; Start 09/09/18 at 22:30 Carvedilol (Coreg) 3.125 mg BID PO Last administered on 09/13/18 20:13; Admin Dose 3.125 MG; Start 09/09/18 at 22:30 Docusate Sodium (Colace) 200 mg BID PO Last administered on 09/13/18 08:54; Admin Dose 200 MG; Start 09/09/18 at 22:30 Escitalopram Oxalate (Lexapro) 10 mg DAILY PO Last administered on 09/14/18 08:37; Admin Dose 10 MG; Start 09/10/18 at 09:00 Magnesium Hydroxide (Milk Of Mag) 30 ml DAILY PO Last administered on 09/13/18 08:53; Admin Dose 30 ML; Start 09/10/18 at 09:00 Ondansetron HCl (Zofran Tab) 4 mg Q6H PRN PO NAUSEA AND/OR VOMITING Last administered on 09/12/18 09:47; Admin Dose 4 MG; Start 09/09/18 at 22:30 Oxycodone HCl (Oxycontin) 20 mg Q12 PO Last administered on 09/14/18 08:36; Admin Dose 20 MG; Start 09/09/18 at 22:30 Pantoprazole (Protonix Tab) 40 mg AC BREAKFAST PO Last administered on 09/14/18 08:37; Admin Dose 40 MG; Start 09/10/18 at 07:00 Polyethylene Glycol (Miralax) 17 gm BID PO Last administered on 09/13/18 08:53; Admin Dose 17 GM; Start 09/09/18 at 22:30 Potassium Chloride (Klor-Con 20) 20 meq DAILY PO Last administered on 09/14/18 08:38; Admin Dose 20 MEQ; Start 09/10/18 at 09:00 Furosemide (Lasix) 40 mg BID DIURETICS IV Last administered on 09/14/18 06:28; Admin Dose 40 MG; Start 09/11/18 at 19:09 Metolazone (Zaroxolyn) 2.5 mg BID PO Last administered on 09/14/18 08:40; Admin Dose 2.5 MG; Start 09/13/18 at 05:30 Spironolactone (Aldactone) 50 mg DAILY PO Last administered on 09/14/18 08:39; Admin Dose 50 MG; Start 09/13/18 at 18:00 RUSS JEROME MD Sep 14, 2018 08:51
[2018-09-14] MEDS ORDERED: IOHEXOL 300MG/ML 150 ML BTL ONE (11:04)
[2018-09-14] MEDS ORDERED: SOD CHLORIDE 0.9% 100 ML ONE (11:04)
--- NOTE | 2018-09-14 13:09 | CONS ---
Consult Date/Type/Reason Admit Date/Time Sep 09, 2018 at 14:53 Initial Consult Date 09/09/18 Requesting Provider: RUSS JEROME MD Date/Time of Note DATE: 09/14/18 TIME: 13:07 Subjective Now better - s/p thoracocentesis - responded to diuresis - feels better today ROS: No fever, no chills, no nausea, no vomiting, no diarrhea/constipation No recent weight changes No chest pain, no PND, no orthopnea + SOB + fatigue No dizziness, blurred vision No thirst, no heat or cold intolerance Objective Vitals Vital Signs Date Temp Pulse Resp B/P (MAP) Pulse Ox O2 O2 Flow FiO2 Time Delivery Rate 09/14/18 98.4 96 113/69 75 07:25 (84) 09/14/18 20 Nasal 01:25 Cannula 09/13/18 2.0 20:56 Intake and Output 09/13/18 09/13/18 09/14/18 1515:00 23:00 07:00 IntakeIntake Total 150 ml 900 ml OutputOutput Total 1200 ml 200 ml 500 ml BalanceBalance -1200 ml -50 ml 400 ml Exam General: WN/WD/NAD, AOx 3 HEENT: Unicetric/atraumatic/EOMI (follow commands) NECK: JVD elevated, no thyromegaly Lymph: no lymphadenopathy HEART: regular with no S3, II/ systolic murmur at apex LUNGS: Coarse sounds ABD: soft, NT, ND, +BS : Intact Neuro: non focal SKIN: chronic changes EXT: 1-2+ edema Results/Medications Result Diagram: 09/14/1842609/14/187 Results 24 hrs Laboratory Tests Test 09/14/18 04:27 White Blood Count 4.1 L Red Blood Count 3.07 L Hemoglobin 9.8 L Hematocrit 29.7 L Mean Corpuscular Volume 96.7 Mean Corpuscular Hemoglobin 31.9 Mean Corpuscular Hemoglobin Concent 33.0 Red Cell Distribution Width 15.8 H Platelet Count 106 #L Mean Platelet Volume 9.8 Immature Granulocytes % 1.500 H Neutrophils % Segmented Neutrophils % (Manual) 29 L Band Neutrophils % (Manual) 28 H Lymphocytes % Lymphocytes % (Manual) 19 Reactive Lymphocytes % (Manual) 13 H Monocytes % Monocytes % (Manual) 9 Eosinophils % Basophils % Myelocytes % (Manual) 2 H Nucleated Red Blood Cells % 3 H Immature Granulocytes # 0.060 H Neutrophils # Neutrophils # (Manual) 1.2 L Band Neutrophils # 1.1 H Lymphocytes (Manual) 0.7 L Lymphocytes # Reactive Lymphocytes # 0.5 H Monocytes # Monocytes # (Manual) 0.3 Eosinophils # Basophils # Myelocytes # 0.0 Nucleated Red Blood Cells # Platelet Estimate DECREASED Polychromasia 3+ Poikilocytosis 1+ Anisocytosis 2+ Microcytosis 2+ Ovalocytes 1+ Stomatocytes 1+ Sodium Level 132 L Potassium Level 3.0 L Chloride Level 90 L Carbon Dioxide Level 34 H Anion Gap 8 Blood Urea Nitrogen 13 Creatinine 0.66 Est Glomerular Filtrat Rate mL/min > 60 Glucose Level 99 Calcium Level 8.2 L Total Bilirubin 0.5 Direct Bilirubin 0.00 Indirect Bilirubin 0.5 Aspartate Amino Transf (AST/SGOT) 32 Alanine Aminotransferase (ALT/SGPT) 22 Alkaline Phosphatase 67 Total Protein 5.2 L Albumin 2.8 L Globulin 2.40 Albumin/Globulin Ratio 1.16 Home Meds Reported Medications Potassium Chloride* (Potassium Chloride*) 20 Meq Tablet.er, 20 MEQ PO DAILY, TAB.SA 09/09/18 Epoetin Cr (Procrit) 4,000 Unit/1 Ml Vial, 4000 UNIT IJ Q SUN, VIAL 7:00AM-7:00PM,HOLD IF HGB>10 09/09/18 Ondansetron Hcl* (Zofran*) 4 Mg Tab, 4 MG PO Q6H PRN for NAUSEA AND OR VOMITING, TAB 08/22/18 Pantoprazole* (Pantoprazole*) 40 Mg Tablet.dr, 40 MG PO AC BREAKFAST, TAB 08/22/18 Oxycodone Hcl* (Oxycontin*) 20 Mg Tab.er.12h, 20 MG PO Q12, TAB 08/22/18 Amlodipine Besylate* (Norvasc*) 5 Mg Tablet, 5 MG PO BID, TAB HOLD FOR SBP <110. 08/22/18 Polyethylene Glycol* (Miralax*) 17 Gm Powd.pack, 17 GM PO BID, #60 PACKET ON -12:00 TO 4:00PM 08/22/18 Magnesium Hydroxide* (Milk Of Magnesia*) 400 Mg/5 Ml Oral.susp, 30 ML PO DAILY, ML 08/22/18 Escitalopram Oxalate* (Lexapro*) 10 Mg Tablet, 10 MG PO DAILY, #30 TAB 08/22/18 Furosemide* (Furosemide*) 20 Mg Tablet, 20 MG PO DAILY, #60 TAB HOLD FOR SBP <110. 08/22/18 Docusate Sodium* (Colace*) 100 Mg Capsule, 200 MG PO BID, #60 CAP 08/22/18 Carvedilol* (Carvedilol*) 3.125 Mg Tablet, 3.125 MG PO BID, #60 TAB HOLD FOR SBP <110 OR VA <60. GIVE WITH FOOD. 08/22/18 Lactose-Free Food (Boost High Protein) 237 Ml Liquid, 120 ML PO BID 08/22/18 Benazepril Hcl* (Benazepril Hcl*) 5 Mg Tablet, 5 MG PO BID, #60 TAB HOLD FOR SBP <110. 08/22/18 Anastrozole* (Arimidex*) 1 Mg Tablet, 1 MG PO DAILY, #30 TAB 08/22/18 Acetaminophen* (Acetaminophen*) 500 MG Extra Strength Tablet, 500 MG PO Q6H PRN for PAIN AND OR ELEVATED TEMP, TAB 08/22/18 Discontinued Reported Medications Amino Acids/Protein Hydrolys (Pro-Stat Awc Liquid) 30 Ml Liquid, 15 ML PO TID 08/22/18 Naloxegol Oxalate (Movantik) 12.5 Mg Tablet, 12.5 MG PO BID, TAB 08/22/18 Medications Current Medications Acetaminophen (Tylenol Tab) 500 mg Q6H PRN PO MILD PAIN(1-3)OR ELEVATED TEMP; Start 09/09/18 at 22:30 Anastrozole (Arimidex) 1 mg DAILY PO Last administered on 09/14/18at 08:42; Admin Dose 1 MG; Start 09/10/18 at 09:00 Benazepril HCl (Lotensin) 5 mg BID PO Last administered on 09/11/18at 09:26; Admin Dose 5 MG; Start 09/09/18 at 22:30 Carvedilol (Coreg) 3.125 mg BID PO Last administered on 09/13/18at 20:13; Admin Dose 3.125 MG; Start 09/09/18 at 22:30 Docusate Sodium (Colace) 200 mg BID PO Last administered on 09/13/18at 08:54; Admin Dose 200 MG; Start 09/09/18 at 22:30 Escitalopram Oxalate (Lexapro) 10 mg DAILY PO Last administered on 09/14/18 08:37; Admin Dose 10 MG; Start 09/10/18 at 09:00 Magnesium Hydroxide (Milk Of Mag) 30 ml DAILY PO Last administered on 09/13/18 08:53; Admin Dose 30 ML; Start 09/10/18 at 09:00 Ondansetron HCl (Zofran Tab) 4 mg Q6H PRN PO NAUSEA AND/OR VOMITING Last administered on 09/12/18 09:47; Admin Dose 4 MG; Start 09/09/18 at 22:30 Oxycodone HCl (Oxycontin) 20 mg Q12 PO Last administered on 09/14/18 08:36; Admin Dose 20 MG; Start 09/09/18 at 22:30 Pantoprazole (Protonix Tab) 40 mg AC BREAKFAST PO Last administered on 09/14/18 08:37; Admin Dose 40 MG; Start 09/10/18 at 07:00 Polyethylene Glycol (Miralax) 17 gm BID PO Last administered on 09/13/18 08:53; Admin Dose 17 GM; Start 09/09/18 at 22:30 Potassium Chloride (Klor-Con 20) 20 meq DAILY PO Last administered on 09/14/18 08:38; Admin Dose 20 MEQ; Start 09/10/18 at 09:00 Furosemide (Lasix) 40 mg BID DIURETICS IV Last administered on 09/14/18 06:28; Admin Dose 40 MG; Start 09/11/18 at 19:09 Metolazone (Zaroxolyn) 2.5 mg BID PO Last administered on 09/14/18 08:40; Admin Dose 2.5 MG; Start 09/13/18 at 05:30 Spironolactone (Aldactone) 50 mg DAILY PO Last administered on 09/14/18 08:39; Admin Dose 50 MG; Start 09/13/18 at 18:00 Assessment/Plan Hospital Course (Demo Recall) 1. Congestive heart failure exacerbation, diastolic by most recent echo, acute on chronic.-neg trop x 3. Echo this admit EF 60/small pericardia effusion - respondiong to diuresis, feels better now 2. Hypotension, currently borderline-overall improved - stable - will monitor now 3. Anasarca - con;t fluid optimization 4. Metastatic breast carcinoma - overall poor prognosis 5. Leukopenia. 6. Thrombocytopenia.-ongoing - no active bleeding now, H/H stable at 9.8 EMILY NELSON MD Sep 14, 2018 13:09
[2018-09-14 13:28] VITALS: BP 110/62; PULSE 93; RESP 18
[2018-09-14] MEDS: ACETAMINOPHEN 500 MG TAB PO PRN (14:29)
[2018-09-14 20:30] VITALS: BP 121/75; PULSE 102; RESP 19
--- NOTE | 2018-09-14 22:08 | CONS ---
Assessment/Plan Assessment/Plan Hospital Course (Demo Recall) METASTATIC BREAST CANCER WITH PRIMARY ADENOCARCINOMA IN the left breast. MULTIPLE BONY METS, PULMONARY METS, LIVER METS CHEMO ON HOLD PT HAS A VERY GOOD RESPONSE TO CHEMO AND AI CONT AI FOR NOW CT ABD FOR RESTAGING 3..- noted , stable CT CHEST- STABLE/IMPROVING 1. Moderate bilateral pleural effusions with adjacent lung base consolidation/atelectasis. 2. Moderate pericardial effusion. 3. Decreased size of previously prominent mediastinal lymph nodes. Decreased size of sub centimeter axillary lymph nodes. 4. Stable nonspecific pulmonary nodules as described above. 5. Stable soft tissue nodule of the anterior left chest wall/breast. 6. Redemonstrated diffuse sclerotic metastatic osseous lesions with stable compression deformities of the thoracic spine. 7. Nodular contour of the liver with multiple hypoattenuating masses, grossly similar to prior exam. WILL OBTAIN CYTOLOGY IN FUTURE POST PERICARDIOCENTESIS CARD - TO MONITOR FOR PERICARDIAL TAMPONADE Leucopenia- post chemo NEUPOGEN- DC monitor closely post Neutropenia with occasional fever and chills. Anemia chronic disease SOB PLEURAL EFFUSIONS thoracentesis Fluid overload diuretic cardiology F-UP Congestive heart failure exacerbation, diastolic by most recent echo, acute on chronic.-neg trop x 3. Echo this admit EF 60/small pericardia effusion Hypotension, currently borderline-overall improved Anasarca. Severe pain in the interscapular and lumbar sacral area most probably metastatic lesion possible femoral fracture. pathologic fracture of T9 with 60% of loss of height. Obesity. Weight loss 60 pounds during the last 2 years PMS. Myopia. Anxiety disorder. Claustrophobia. Posttraumatic stress disorder. Pain in the left forearm with a history of fracture of ulna and radius. Tachycardia Hypoxemia at night marginal improved after 2 L of nasal cannula oxygen. Deconditioning Pain syndrome. Today the most painful zone is in the right hip area. X-ray did not show any fractures. Hyponatremia- resolved Hypoalbuminemia Right sided cp after catheter insertion and correction less discomfort. Decreased edema both lower extremities with hypotension-improving Swelling of the left forearm-persist. Consultation Date/Type/Reason Admit Date/Time Sep 09, 2018 at 14:53 Initial Consult Date 09/09/18 Type of Consult [facility] Requesting Provider: RUSS JEROME MD Date/Time of Note DATE: 09/14/18 TIME: 22:04 24 HR Interval Summary Free Text/Dictation sl better Exam/Review of Systems Exam Vitals Vital Signs Date Temp Pulse Resp B/P (MAP) Pulse Ox O2 O2 Flow FiO2 Time Delivery Rate 09/14/18 98.2 102 19 121/75 93 20:30 (90) 09/14/18 Nasal 01:25 Cannula 09/13/18 2.0 20:56 Intake and Output 09/13/18 09/13/18 09/14/18 1515:00 23:00 07:00 IntakeIntake Total 150 ml 900 ml OutputOutput Total 1200 ml 200 ml 500 ml BalanceBalance -1200 ml -50 ml 400 ml Exam Constitutional: alert, oriented, well developed, distress, frail Psych: anxiety, depression; No no complaints, No nl mood/affect, No confusion, No suicidal, No other Head: normocephalic, atraumatic Eyes: EOMI, nl lids; No nl conjunctiva, No nl sclera, No PERRL, No icteric, No fundi, disc, No other ENMT: No nl external ears & nose, No nl lips & teeth, No nl nasal mucosa & septum, No mucosa pink and moist, No intubated, No tympanic membranes, No other Neck: supple, jvd, bruits; No non-tender, No masses, No thyromegaly, No nuchal rigidity, No other Respiratory: congested cough, diminished breath sounds (Left more prominent than the right side.); No clear to auscultation, No normal air movement, No crackles/rales, No intercostal retraction, No labored breathing, No respirations, No tactile fremitus, No wheezing, No other Cardiovascular: No regular rate and rhythm, No nl pulses, No bruits, No diastolic murmur, No edema, No gallop, No irregular rhythm, No jugular venous distention (JVD), No murmurs/extra sounds, No rub, No systolic murmur, No S3, No S4, No other Gastrointestinal: soft, nl liver, spleen, distended Extremities: edema (Left upper extremity more prominent in the right.) Results Result Diagram: 09/14/187 09/14/187 Results 24hrs Laboratory Tests Test 09/14/18 04:27 White Blood Count 4.1 L Red Blood Count 3.07 L Hemoglobin 9.8 L Hematocrit 29.7 L Mean Corpuscular Volume 96.7 Mean Corpuscular Hemoglobin 31.9 Mean Corpuscular Hemoglobin Concent 33.0 Red Cell Distribution Width 15.8 H Platelet Count 106 #L Mean Platelet Volume 9.8 Immature Granulocytes % 1.500 H Neutrophils % Segmented Neutrophils % (Manual) 29 L Band Neutrophils % (Manual) 28 H Lymphocytes % Lymphocytes % (Manual) 19 Reactive Lymphocytes % (Manual) 13 H Monocytes % Monocytes % (Manual) 9 Eosinophils % Basophils % Myelocytes % (Manual) 2 H Nucleated Red Blood Cells % 3 H Immature Granulocytes # 0.060 H Neutrophils # Neutrophils # (Manual) 1.2 L Band Neutrophils # 1.1 H Lymphocytes (Manual) 0.7 L Lymphocytes # Reactive Lymphocytes # 0.5 H Monocytes # Monocytes # (Manual) 0.3 Eosinophils # Basophils # Myelocytes # 0.0 Nucleated Red Blood Cells # Platelet Estimate DECREASED Polychromasia 3+ Poikilocytosis 1+ Anisocytosis 2+ Microcytosis 2+ Ovalocytes 1+ Stomatocytes 1+ Sodium Level 132 L Potassium Level 3.0 L Chloride Level 90 L Carbon Dioxide Level 34 H Anion Gap 8 Blood Urea Nitrogen 13 Creatinine 0.66 Est Glomerular Filtrat Rate mL/min > 60 Glucose Level 99 Calcium Level 8.2 L Total Bilirubin 0.5 Direct Bilirubin 0.00 Indirect Bilirubin 0.5 Aspartate Amino Transf (AST/SGOT) 32 Alanine Aminotransferase (ALT/SGPT) 22 Alkaline Phosphatase 67 Total Protein 5.2 L Albumin 2.8 L Globulin 2.40 Albumin/Globulin Ratio 1.16 Imaging Imaging PROCEDURE: CT Chest with contrast. CLINICAL INDICATION: Cancer restaging TECHNIQUE: CT scan of the chest with contrast was performed on a multidetector high-resolution CT scanner. The patient was scanned following the uncomplicated intravenous administration of 90 cc of Omnipaque-300 contrast. Coronal and sagittal reformatted images were obtained from the axial source images. DICOM images are available. CTDIvol 16.63 mGy, and DLP 560.89 mGy.cm. One or more of the following dose reduction techniques were used: - Automated exposure control. - Adjustment of the mA and/or kV according to patient size. - Use of iterative reconstruction technique. COMPARISON: CT 08/27/2018; CT CHESTW_WO 06/08/2018 FINDINGS: Evaluation limited by motion artifact. Image quality is suboptimal due to streak artifact likely from the patient's arms. Lungs: Consolidation/atelectasis of the lung bases, worse on the left. Linear atelectasis or scarring of the lingula. Grossly stable 6 mm subpleural nodule in the left upper lobe (series 4 image 36). Grossly stable 5 mm nodule in the right lower lobe (series 4 image 59). Pleura: Moderate bilateral pleural effusions. Mediastinum: No mediastinal masses. Cardiovascular: Stable right chest port with catheter tip at the right atrium. The moderate pericardial effusion. Lymph nodes: Interval decreased size of mediastinal lymph nodes, now measuring up to 8 mm, previously 12 mm. Decreased size of sub centimeter axillary lymph nodes. Musculoskeletal: Redemonstrated diffuse sclerotic metastatic lesions of the visualized bones. Stable compression deformities of the thoracic spine. Upper abdomen: Nodular contour of the liver, with grossly stable hypoattenuating lesions, limited in evaluation by overlying streak artifact. Cholelithiasis. Other: Grossly stable soft tissue nodule in the anterior left chest wall/breast, measuring 19 x 8 mm. IMPRESSION: 1. Moderate bilateral pleural effusions with adjacent lung base consolidation/atelectasis. 2. Moderate pericardial effusion. 3. Decreased size of previously prominent mediastinal lymph nodes. Decreased size of sub centimeter axillary lymph nodes. 4. Stable nonspecific pulmonary nodules as described above. 5. Stable soft tissue nodule of the anterior left chest wall/breast. 6. Redemonstrated diffuse sclerotic metastatic osseous lesions with stable compression deformities of the thoracic spine. 7. Nodular contour of the liver with multiple hypoattenuating masses, grossly similar to prior exam. Medications Medication Current Medications Acetaminophen (Tylenol Tab) 500 mg Q6H PRN PO MILD PAIN(1-3)OR ELEVATED TEMP Last administered on 09/14/18 14:29; Admin Dose 500 MG; Start 09/09/18 at 22:30 Anastrozole (Arimidex) 1 mg DAILY PO Last administered on 09/14/18 08:42; Admin Dose 1 MG; Start 09/10/18 at 09:00 Benazepril HCl (Lotensin) 5 mg BID PO Last administered on 09/14/18 20:48; Admin Dose 5 MG; Start 09/09/18 at 22:30 Carvedilol (Coreg) 3.125 mg BID PO Last administered on 09/14/18 20:48; Admin Dose 3.125 MG; Start 09/09/18 at 22:30 Docusate Sodium (Colace) 200 mg BID PO Last administered on 09/14/18 20:46; Admin Dose 200 MG; Start 09/09/18 at 22:30 Escitalopram Oxalate (Lexapro) 10 mg DAILY PO Last administered on 09/14/18 08:37; Admin Dose 10 MG; Start 09/10/18 at 09:00 Magnesium Hydroxide (Milk Of Mag) 30 ml DAILY PO Last administered on 09/13/18 08:53; Admin Dose 30 ML; Start 09/10/18 at 09:00 Ondansetron HCl (Zofran Tab) 4 mg Q6H PRN PO NAUSEA AND/OR VOMITING Last administered on 09/12/18 09:47; Admin Dose 4 MG; Start 09/09/18 at 22:30 Oxycodone HCl (Oxycontin) 20 mg Q12 PO Last administered on 09/14/18 20:53; Admin Dose 20 MG; Start 09/09/18 at 22:30 Pantoprazole (Protonix Tab) 40 mg AC BREAKFAST PO Last administered on 09/14/18 08:37; Admin Dose 40 MG; Start 09/10/18 at 07:00 Polyethylene Glycol (Miralax) 17 gm BID PO Last administered on 09/13/18 08:53; Admin Dose 17 GM; Start 09/09/18 at 22:30 Potassium Chloride (Klor-Con 20) 20 meq DAILY PO Last administered on 09/14/18 08:38; Admin Dose 20 MEQ; Start 09/10/18 at 09:00 Furosemide (Lasix) 40 mg BID DIURETICS IV Last administered on 09/14/18 18:02 ; Admin Dose 40 MG; Start 09/11/18 at 19:09 Metolazone (Zaroxolyn) 2.5 mg BID PO Last administered on 09/14/18 20:47; Admin Dose 2.5 MG; Start 09/13/18 at 05:30 Spironolactone (Aldactone) 50 mg DAILY PO Last administered on 09/14/18 08:39; Admin Dose 50 MG; Start 09/13/18 at 18:00 DES DUNAWAY MD Sep 14, 2018 22:08
[2018-09-15] VITALS (8 sets, daily range): BP systolic 102–134; BP diastolic 60–77; PULSE 69–107; RESP 18–20
[2018-09-15] MEDS: FUROSEMIDE 40 MG INJ IV SCH ×2 (05:34→17:40)
[2018-09-15] MEDS: PANTOPRAZOLE (EC) 40 MG TAB PO SCH (08:31)
[2018-09-15] MEDS: oxyCODONE (CR) 20 MG TAB [oxyCONTIN] PO SCH (09:14)
[2018-09-15] MEDS: ANASTROZOLE 1 MG TAB PO SCH (09:15)
[2018-09-15] MEDS: METOLAZONE 2.5 MG TAB PO SCH ×2 (09:20→20:47)
[2018-09-15] MEDS: POTASSIUM CHLORIDE (SR) 20 MEQ TAB PO SCH ×2 (11:09→20:59)
[2018-09-15] MEDS: SPIRONOLACTONE 50 MG TAB PO SCH (11:10)
[2018-09-15] MEDS: ESCITALOPRAM 10 MG TAB PO SCH (11:10)
[2018-09-15] MEDS: BENAZEPRIL 5 MG TAB PO SCH ×2 (11:20→20:48)
[2018-09-15] MEDS: POLYETHYLENE GLYCOL 17 GM PACKET PO SCH ×2 (11:21→20:59)
[2018-09-15] MEDS: MAGNESIUM HYDROXIDE 30ML CUP PO SCH (11:21)
[2018-09-15] MEDS: DOCUSATE SODIUM 100 MG CAP PO SCH ×2 (11:21→20:47)
--- NOTE | 2018-09-15 11:55 | PN ---
Date/Time of Note Date/Time of Note DATE: 09/15/18 TIME: 11:48 Assessment/Plan VTE Prophylaxis Risk score (from Nsg)>0 risk: 7 SCD applied (from Ns): No SCD contraindicated: other (Able to walk makes every effort according to her she made 3 rounds on the floor but getting tired easily short of breath.) Pharmacological prophylaxis: LMWH, other (Hold for 1 day will perform a tap.) Lines/Catheters IV Catheter Type (from Nrs): Peripheral IV Central line still needed: No Urinary Cath still in place: No Reason Cath still needed: urinary retention Assessment/Plan Assessment/Plan 1. Cancer of the left breast. Exact type at this time unknown.MULTIPLE BONY METS, PULMONARY METS 2. Severe pain in the interscapular and lumbar sacral area most probably metastatic lesion possible femoral fracture. pathologic fracture of T9 with 60% of loss of height. Neurosurgical f/u. 3. Obesity. 4. Weight loss 60 pounds during the last 2 years by diet 5. PMS. 6. Myopia. 7. Anemia chronic disease with a drop of her hematocrit to 27 and regaining to 30 without any measures. Latest results 28. Protonix was added. Today hematocrit is 26. Will recheck tomorrow 8. Anxiety disorder. Claustrophobia. Increase Ativan to 1 mg every 8 as needed at Lexapro 10 mg daily. 9. Posttraumatic stress disorder. 10. Pain in the left forearm with a history of fracture of ulna and radius. 11. Tachycardia 12. Hypoxemia at night marginal improved after 2 L of nasal cannula oxygen. 13. Deconditioning 14. 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 15. Pain syndrome. Today the most painful zone is in the right hip area. X- ray did not show any fractures. 16. Hyponatremia-persists; hypokalemia after massive diuresis. 17. Leucopenia-improved. 18. Neutropenia with occasional fever and chills. Last chemotherapy 5 days ago. 19. Hypoalbuminemia. 20.Right sided cp after catheter insertion and correction less discomfort. 21. Decreased edema both lower extremities with hypotension-improving 22.Swelling of the left forearm-persist. Now with erythema involving mainly the dorsum of the left upper extremity. 23.bilateral pleural effusions ; plan to perform tap tomorrow morning preferably from the left side first . 24. Systolic over diastolic congestive heart failure with a right more than left lower extremity swelling with no DVT in latest venous Doppler. Result Diagram: 09/14/1842609/14/18426 Subjective 24 Hr Interval Summary Free Text/Dictation Weakness getting tired. Improved shortness of breath. Decrease edema of both lower extremities right more edematous than left decreased swelling and redness of the left upper extremity. Constitutional: diaphoresis, poor po, requiring IVF, requiring O2 Eyes: visual change; No no complaints, No pain, No discharge, No redness, No other ENT: congestion, dysphagia, sore throat; No no complaints, No bleeding, No pain, No discharge, No other Respiratory: cough, shortness of breath, sputum; No no complaints, No pain, No pleuritic pain, No wheezing, No other Cardiovascular: chest pain, edema, lightheadedness, palpitations, paroxysmal nocturnal dyspnea; No no complaints, No orthopenea, No other Gastrointestinal: no complaints, constipation, decreased appetite, nausea; No pain, No blood, No diarrhea, No flatus, No passing stool, No vomiting, No other Genitourinary: dysuria, flank pain; No no complaints, No bleeding, No discharge, No hematuria, No other Musculoskeletal: back pain, bone/joint pain, neck pain; No no complaints, No restricted range of motion, No swelling, No other Skin: pruritis, rash; No no complaints, No bruising, No erythema, No laceration, No skin lesions, No other Neurologic: dizziness, headache; No no complaints, No confusion, No focal-weakness, No syncope, No seizure, No other Endocrine: polyuria (Last night the most amount of urine output more than 3 L.), dry skin; No no complaints, No polydypsia, No temp intolerance, No other Lymphatic: No no complaints, No adenopathy, No tender nodes, No lymphadema, No other Psychological: anxiety, depression; No no complaints, No nl mood/affect, No confusion, No suicidal, No other Exam/Review of Systems Exam Vitals Vital Signs Date Temp Pulse Resp B/P (MAP) Pulse Ox O2 O2 Flow FiO2 Time Delivery Rate 09/15/18 Nasal 2.0 08:00 Cannula 09/15/18 98.0 18 134/77 87 07:56 (96) 09/15/18 94 02:30 Intake and Output 09/14/18 09/14/18 09/15/18 1414:59 22:59 06:59 IntakeIntake Total 480 ml BalanceBalance 480 ml Constitutional: alert, oriented, well developed, distress, frail, obese; No non-verbal, No other Psych: anxiety, depression; No no complaints, No nl mood/affect, No confusion, No suicidal, No other Head: normocephalic, atraumatic; No lacerations, No hematomas, No other Eyes: EOMI, nl lids, PERRL; No nl conjunctiva, No nl sclera, No icteric, No fundi, disc, No other ENMT: mucosa pink and moist; No nl external ears & nose, No nl lips & teeth, No nl nasal mucosa & septum, No intubated, No tympanic membranes, No other Neck: non-tender, jvd, bruits, thyromegaly; No supple, No masses, No nuchal rigidity, No other Respiratory: normal air movement, congested cough, diminished breath sounds, intercostal retraction; No clear to auscultation, No crackles/rales, No labored breathing, No respirations, No tactile fremitus, No wheezing, No other Cardiovascular: regular rate and rhythm, nl pulses, bruits, edema (Right lower extremity more prominent edema than left lower extremity but with decreased insight comparing with yesterday.), gallop, jugular venous distention (JVD), systolic murmur; No diastolic murmur, No irregular rhythm, No murmurs/extra sounds, No rub, No S3, No S4, No other Gastrointestinal: soft, nl liver, spleen, non-tender, bowel sounds, distended, rebound or guarding Musculoskeletal: nl gait and stance, joint tenderness, muscle tone, muscle weakness (Decreased to almost posterior muscular weakness); No nl extremities to inspection, No range of motion, No spine non-tender, No swelling, No other Extremities: normal pulses; No calf tenderness, No cyanosis, No clubbing, No edema, No pitting pedal edema, No palpable cord, No tenderness, No other 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: GAS PRODUCER 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, nl mental status, nl speech, numbness; No nl strength, No confused, No DTR's symmetric, No focal weakness, No lethargic, No reflexes, No unresponsive, No other Medications Medication Current Medications Acetaminophen (Tylenol Tab) 500 mg Q6H PRN PO MILD PAIN(1-3)OR ELEVATED TEMP Last administered on 09/14/18 14:29; Admin Dose 500 MG; Start 09/09/18 at 22:30 Anastrozole (Arimidex) 1 mg DAILY PO Last administered on 09/15/18 09:15; Admin Dose 1 MG; Start 09/10/18 at 09:00 Benazepril HCl (Lotensin) 5 mg BID PO Last administered on 09/14/18 20:48; Admin Dose 5 MG; Start 09/09/18 at 22:30 Carvedilol (Coreg) 3.125 mg BID PO Last administered on 09/14/18 20:48; Admin Dose 3.125 MG; Start 09/09/18 at 22:30 Docusate Sodium (Colace) 200 mg BID PO Last administered on 09/15/18 11:21; Admin Dose 200 MG; Start 09/09/18 at 22:30 Escitalopram Oxalate (Lexapro) 10 mg DAILY PO Last administered on 09/15/18 11:10; Admin Dose 10 MG; Start 09/10/18 at 09:00 Magnesium Hydroxide (Milk Of Mag) 30 ml DAILY PO Last administered on 09/15/18 11:21; Admin Dose 30 ML; Start 09/10/18 at 09:00 Ondansetron HCl (Zofran Tab) 4 mg Q6H PRN PO NAUSEA AND/OR VOMITING Last administered on 09/12/18 09:47; Admin Dose 4 MG; Start 09/09/18 at 22:30 Oxycodone HCl (Oxycontin) 20 mg Q12 PO Last administered on 09/15/18 09:14; Admin Dose 20 MG; Start 09/09/18 at 22:30 Pantoprazole (Protonix Tab) 40 mg AC BREAKFAST PO Last administered on 09/15/18 08:31; Admin Dose 40 MG; Start 09/10/18 at 07:00 Polyethylene Glycol (Miralax) 17 gm BID PO Last administered on 09/13/18 08:53; Admin Dose 17 GM; Start 09/09/18 at 22:30 Potassium Chloride (Klor-Con 20) 20 meq DAILY PO Last administered on 09/15/18 11:09; Admin Dose 20 MEQ; Start 09/10/18 at 09:00 Furosemide (Lasix) 40 mg BID DIURETICS IV Last administered on 09/15/18at 05:34; Admin Dose 40 MG; Start 09/11/18 at 19:09 Metolazone (Zaroxolyn) 2.5 mg BID PO Last administered on 09/15/18at 09:20; Admin Dose 2.5 MG; Start 09/13/18 at 05:30 Spironolactone (Aldactone) 50 mg DAILY PO Last administered on 09/15/18at 11:10; Admin Dose 50 MG; Start 09/13/18 at 18:00 RUSS JEROME MD Sep 15, 2018 11:55
[2018-09-15] MEDS: ONDANSETRON 4 MG TAB PO PRN (14:01)
[2018-09-15] MEDS ORDERED: POTASSIUM CHLORIDE (SR) 20 MEQ TAB PO STA (14:05)
--- NOTE | 2018-09-15 14:14 | CONS ---
Consult Date/Type/Reason Admit Date/Time Sep 09, 2018 at 14:53 Initial Consult Date 09/09/18 Requesting Provider: RUSS JEROME MD Date/Time of Note DATE: 09/15/18 TIME: 14:11 Subjective NO acute events - pt still with SOB, hypoxic - increased SOB - feels uncomfortable. NO CP - but increased fluid retention - not able to tolerate Rx with low Bp - will advise Tx to tele. Awaiting thoracocentesis - overall, poor prognosis. ROS: No fever, no chills, no nausea, no vomiting, no diarrhea/constipation No recent weight changes No chest pain, no PND, no orthopnea -INCREASED SOB No dizziness, blurred vision No thirst, no heat or cold intolerance Objective Vitals Vital Signs Date Temp Pulse Resp B/P (MAP) Pulse Ox O2 O2 Flow FiO2 Time Delivery Rate 09/15/18 Nasal 2.0 08:00 Cannula 09/15/18 98.0 18 134/77 87 07:56 (96) 09/15/18 94 02:30 Intake and Output 09/14/18 09/14/18 09/15/18 1515:00 23:00 07:00 IntakeIntake Total 480 ml BalanceBalance 480 ml Exam General: WN/WD/NAD, AOx 3 HEENT: Unicetric/atraumatic/EOMI (follow commands) NECK: JVD elevated, no thyromegaly Lymph: no lymphadenopathy HEART: regular with no S3, II/ systolic murmur at apex LUNGS: Coarse sounds, a bases ABD: soft, NT, ND, +BS : Intact Neuro: non focal SKIN: chronic changes EXT: 2+ edema R> L Results/Medications Result Diagram: 09/14/18 0427 09/14/18 0427 Results 24 hrs Laboratory Tests Test 09/15/18 12:18 Magnesium Level 1.6 L Home Meds Reported Medications Potassium Chloride* (Potassium Chloride*) 20 Meq Tablet.er, 20 MEQ PO DAILY, TAB.SA 09/09/18 Epoetin Cr (Procrit) 4,000 Unit/1 Ml Vial, 4000 UNIT IJ Q FRI, VIAL 7:00AM-7:00PM,HOLD IF HGB>10 09/09/18 Ondansetron Hcl* (Zofran*) 4 Mg Tab, 4 MG PO Q6H PRN for NAUSEA AND OR VOMITING, TAB 08/22/18 Pantoprazole* (Pantoprazole*) 40 Mg Tablet.dr, 40 MG PO AC BREAKFAST, TAB 08/22/18 Oxycodone Hcl* (Oxycontin*) 20 Mg Tab.er.12h, 20 MG PO Q12, TAB 08/22/18 Amlodipine Besylate* (Norvasc*) 5 Mg Tablet, 5 MG PO BID, TAB HOLD FOR SBP <110. 08/22/18 Polyethylene Glycol* (Miralax*) 17 Gm Powd.pack, 17 GM PO BID, #60 PACKET ON -12:00 TO 4:00PM 08/22/18 Magnesium Hydroxide* (Milk Of Magnesia*) 400 Mg/5 Ml Oral.susp, 30 ML PO DAILY, ML 08/22/18 Escitalopram Oxalate* (Lexapro*) 10 Mg Tablet, 10 MG PO DAILY, #30 TAB 08/22/18 Furosemide* (Furosemide*) 20 Mg Tablet, 20 MG PO DAILY, #60 TAB HOLD FOR SBP <110. 08/22/18 Docusate Sodium* (Colace*) 100 Mg Capsule, 200 MG PO BID, #60 CAP 08/22/18 Carvedilol* (Carvedilol*) 3.125 Mg Tablet, 3.125 MG PO BID, #60 TAB HOLD FOR SBP <110 OR [place] <60. GIVE WITH FOOD. 08/22/18 Lactose-Free Food (Boost High Protein) 237 Ml Liquid, 120 ML PO BID 08/22/18 Benazepril Hcl* (Benazepril Hcl*) 5 Mg Tablet, 5 MG PO BID, #60 TAB HOLD FOR SBP <110. 08/22/18 Anastrozole* (Arimidex*) 1 Mg Tablet, 1 MG PO DAILY, #30 TAB 08/22/18 Acetaminophen* (Acetaminophen*) 500 MG Extra Strength Tablet, 500 MG PO Q6H PRN for PAIN AND OR ELEVATED TEMP, TAB 08/22/18 Discontinued Reported Medications Amino Acids/Protein Hydrolys (Pro-Stat Awc Liquid) 30 Ml Liquid, 15 ML PO TID 08/22/18 Naloxegol Oxalate (Movantik) 12.5 Mg Tablet, 12.5 MG PO BID, TAB 08/22/18 Medications Current Medications Acetaminophen (Tylenol Tab) 500 mg Q6H PRN PO MILD PAIN(1-3)OR ELEVATED TEMP Last administered on 09/14/18 14:29; Admin Dose 500 MG; Start 09/09/18 at 22:30 Anastrozole (Arimidex) 1 mg DAILY PO Last administered on 09/15/18 09:15; Admin Dose 1 MG; Start 09/10/18 at 09:00 Benazepril HCl (Lotensin) 5 mg BID PO Last administered on 09/14/18 20:48; Admin Dose 5 MG; Start 09/09/18 at 22:30 Carvedilol (Coreg) 3.125 mg BID PO Last administered on 09/14/18 20:48; Admin Dose 3.125 MG; Start 09/09/18 at 22:30 Docusate Sodium (Colace) 200 mg BID PO Last administered on 09/15/18 11:21; Admin Dose 200 MG; Start 09/09/18 at 22:30 Escitalopram Oxalate (Lexapro) 10 mg DAILY PO Last administered on 09/15/18 11:10; Admin Dose 10 MG; Start 09/10/18 at 09:00 Magnesium Hydroxide (Milk Of Mag) 30 ml DAILY PO Last administered on 09/15/18 11:21; Admin Dose 30 ML; Start 09/10/18 at 09:00 Ondansetron HCl (Zofran Tab) 4 mg Q6H PRN PO NAUSEA AND/OR VOMITING Last administered on 09/15/18 14:01; Admin Dose 4 MG; Start 09/09/18 at 22:30 Oxycodone HCl (Oxycontin) 20 mg Q12 PO Last administered on 09/15/18 09:14; Admin Dose 20 MG; Start 09/09/18 at 22:30 Pantoprazole (Protonix Tab) 40 mg AC BREAKFAST PO Last administered on 09/15/18 08:31; Admin Dose 40 MG; Start 09/10/18 at 07:00 Polyethylene Glycol (Miralax) 17 gm BID PO Last administered on 09/13/18 08:53; Admin Dose 17 GM; Start 09/09/18 at 22:30 Furosemide (Lasix) 40 mg BID DIURETICS IV Last administered on 09/15/18 05:34; Admin Dose 40 MG; Start 09/11/18 at 19:09 Metolazone (Zaroxolyn) 2.5 mg BID PO Last administered on 09/15/18at 09:20; Admin Dose 2.5 MG; Start 09/13/18 at 05:30 Spironolactone (Aldactone) 50 mg DAILY PO Last administered on 09/15/18at 11:10; Admin Dose 50 MG; Start 09/13/18 at 18:00 Potassium Chloride (Klor-Con 20) 20 meq BID PO ; Start 09/15/18 at 21:00 Albuterol/ Ipratropium (Duoneb) 3 ml Q8H RESP THERAPY PRN HHN SHORTNESS OF BREATH; Start 09/15/18 at 14:30; Status UNV Potassium Chloride (Klor-Con 20) 20 meq ONCE STAT PO ; Start 09/15/18 at 14:05; Stop 09/15/18 at 14:06; Status UNV Magnesium Sulfate 50 ml @ 25 mls/hr DAILY IVPB ; Start 09/15/18 at 14:30; Stop 09/17/18 at 14:29; Status UNV Assessment/Plan Hospital Course (Demo Recall) 1. Congestive heart failure exacerbation, diastolic by most recent echo, acute on chronic.-neg trop x 3. Echo this admit EF 60/small pericardia effusion - respondiong to diuresis, feels better now - now with increased retention - diffclt to diureses with low BP 2. Hypotension, currently borderline-overall improved - stable - will monitor now - ADVISE TELE now with hypoxia 3. Anasarca - con;t fluid optimization 4. Metastatic breast carcinoma - overall poor prognosis 5. Leukopenia. 6. Thrombocytopenia.-ongoing - no active bleeding now, H/H stable at 9.8 - o active bleeding now EMILY NELSON MD Sep 15, 2018 14:14
[2018-09-15] MEDS: MAGNESIUM SULFATE 2 GM/50 ML 50 ML IVPB SCH (15:42)
[2018-09-15] MEDS: ALBUTEROL/IPRATROPIUM (NEB) 3 ML AMP HHN PRN (16:09)
[2018-09-15] MEDS: oxyCODONE (CR) 10 MG TAB [oxyCONTIN] PO SCH (20:48)
[2018-09-15] MEDS: ONDANSETRON 4 MG INJ IV PRN (20:50)
--- NOTE | 2018-09-15 21:33 | CONS ---
Assessment/Plan Assessment/Plan Hospital Course (Demo Recall) METASTATIC BREAST CANCER WITH PRIMARY ADENOCARCINOMA IN the left breast. MULTIPLE BONY METS, PULMONARY METS, LIVER METS CHEMO ON HOLD PT HAS A VERY GOOD RESPONSE TO CHEMO AND AI CONT AI FOR NOW CT ABD FOR RESTAGING 3..19- noted , stable CT CHEST- STABLE/IMPROVING 1. Moderate bilateral pleural effusions with adjacent lung base consolidation/atelectasis. 2. Moderate pericardial effusion. 3. Decreased size of previously prominent mediastinal lymph nodes. Decreased size of sub centimeter axillary lymph nodes. 4. Stable nonspecific pulmonary nodules as described above. 5. Stable soft tissue nodule of the anterior left chest wall/breast. 6. Redemonstrated diffuse sclerotic metastatic osseous lesions with stable compression deformities of the thoracic spine. 7. Nodular contour of the liver with multiple hypoattenuating masses, grossly similar to prior exam. WILL OBTAIN CYTOLOGY IN FUTURE POS PERICARDIOCENTESIS- PER CARDIOLOGY CARD - TO MONITOR FOR PERICARDIAL TAMPONADE Leucopenia- post chemo NEUPOGEN- DC monitor closely post Neutropenia with occasional fever and chills. Anemia chronic disease SOB PLEURAL EFFUSIONS thoracentesis Fluid overload diuretic cardiology F-UP Congestive heart failure exacerbation, diastolic by most recent echo, acute on chronic.-neg trop x 3. Echo this admit EF 60/small pericardia effusion Hypotension, currently borderline-overall improved Anasarca. Severe pain in the interscapular and lumbar sacral area most probably metastatic lesion possible femoral fracture. pathologic fracture of T9 with 60% of loss of height. Obesity. Weight loss 60 pounds during the last 2 years PMS. Myopia. Anxiety disorder. Claustrophobia. Posttraumatic stress disorder. Pain in the left forearm with a history of fracture of ulna and radius. Tachycardia Hypoxemia at night marginal improved after 2 L of nasal cannula oxygen. Deconditioning Pain syndrome. Today the most painful zone is in the right hip area. X-ray did not show any fractures. Hyponatremia- resolved Hypoalbuminemia Right sided cp after catheter insertion and correction less discomfort. Decreased edema both lower extremities with hypotension-improving Swelling of the left forearm-persist. Consultation Date/Type/Reason Admit Date/Time Sep 09, 2018 at 14:53 Initial Consult Date 09/09/18 Type of Consult [facility] Requesting Provider: RUSS JEROME MD Date/Time of Note DATE: 09/15/18 TIME: 21:30 24 HR Interval Summary Free Text/Dictation all noted NAD pt still with SOB, hypoxic - increased SOB - NO CP - but increased fluid retention - not able to tolerate Rx with low Bp Awaiting thoracocentesis TRANSFERRED TO TELE Exam/Review of Systems Exam Vitals Vital Signs Date Temp Pulse Resp B/P (MAP) Pulse Ox O2 O2 Flow FiO2 Time Delivery Rate 09/15/18 92 20:34 09/15/18 98.4 20 107/60 92 Nasal 20:00 (76) Cannula 09/15/18 2.0 28 16:10 Intake and Output 09/14/18 09/14/18 09/15/18 1515:00 23:00 07:00 IntakeIntake Total 480 ml BalanceBalance 480 ml Exam Constitutional: alert, oriented, well developed, distress, frail Psych: anxiety, depression; No no complaints, No nl mood/affect, No confusion, No suicidal, No other Head: normocephalic, atraumatic Eyes: EOMI, nl lids; No nl conjunctiva, No nl sclera, No PERRL, No icteric, No fundi, disc, No other ENMT: No nl external ears & nose, No nl lips & teeth, No nl nasal mucosa & septum, No mucosa pink and moist, No intubated, No tympanic membranes, No other Neck: supple, jvd, bruits; No non-tender, No masses, No thyromegaly, No nuchal rigidity, No other Respiratory: congested cough, diminished breath sounds (Left more prominent than the right side.); No clear to auscultation, No normal air movement, No crackles/rales, No intercostal retraction, No labored breathing, No respirations, No tactile fremitus, No wheezing, No other Cardiovascular: No regular rate and rhythm, No nl pulses, No bruits, No diastolic murmur, No edema, No gallop, No irregular rhythm, No jugular venous distention (JVD), No murmurs/extra sounds, No rub, No systolic murmur, No S3, No S4, No other Gastrointestinal: soft, nl liver, spleen, distended Extremities: edema (Left upper extremity more prominent in the right.), LE BL Results Result Diagram: 09/14/1842609/14/18426 Results 24hrs Laboratory Tests Test 09/15/18 12:18 Magnesium Level 1.6 L Medications Medication Current Medications Acetaminophen (Tylenol Tab) 500 mg Q6H PRN PO MILD PAIN(1-3)OR ELEVATED TEMP Last administered on 09/14/18 14:29; Admin Dose 500 MG; Start 09/09/18 at 22:30 Anastrozole (Arimidex) 1 mg DAILY PO Last administered on 09/15/18 09:15; Admin Dose 1 MG; Start 09/10/18 at 09:00 Benazepril HCl (Lotensin) 5 mg BID PO Last administered on 09/14/18 20:48; Admin Dose 5 MG; Start 09/09/18 at 22:30 Carvedilol (Coreg) 3.125 mg BID PO Last administered on 09/14/18 20:48; Admin Dose 3.125 MG; Start 09/09/18 at 22:30 Docusate Sodium (Colace) 200 mg BID PO Last administered on 09/15/18 20:47; Admin Dose 200 MG; Start 09/09/18 at 22:30 Escitalopram Oxalate (Lexapro) 10 mg DAILY PO Last administered on 09/15/18 11:10; Admin Dose 10 MG; Start 09/10/18 at 09:00 Magnesium Hydroxide (Milk Of Mag) 30 ml DAILY PO Last administered on 09/15/18 11:21; Admin Dose 30 ML; Start 09/10/18 at 09:00 Ondansetron HCl (Zofran Tab) 4 mg Q6H PRN PO NAUSEA AND/OR VOMITING Last administered on 09/15/18 14:01; Admin Dose 4 MG; Start 09/09/18 at 22:30 Pantoprazole (Protonix Tab) 40 mg AC BREAKFAST PO Last administered on 09/15/18 08:31; Admin Dose 40 MG; Start 09/10/18 at 07:00 Polyethylene Glycol (Miralax) 17 gm BID PO Last administered on 09/13/18 08:53; Admin Dose 17 GM; Start 09/09/18 at 22:30 Furosemide (Lasix) 40 mg BID DIURETICS IV Last administered on 09/15/18 17:40; Admin Dose 40 MG; Start 09/11/18 at 19:09 Metolazone (Zaroxolyn) 2.5 mg BID PO Last administered on 09/15/18 20:47; Admin Dose 2.5 MG; Start 09/13/18 at 05:30 Spironolactone (Aldactone) 50 mg DAILY PO Last administered on 09/15/18 11:10; Admin Dose 50 MG; Start 09/13/18 at 18:00 Potassium Chloride (Klor-Con 20) 20 meq BID PO Last administered on 09/15/18 20:59; Admin Dose 20 MEQ; Start 09/15/18 at 21:00 Albuterol/ Ipratropium (Duoneb) 3 ml Q8H RESP THERAPY PRN HHN SHORTNESS OF BREATH Last administered on 09/15/18 16:09; Admin Dose 3 ML; Start 09/15/18 at 14:30 Magnesium Sulfate 50 ml @ 25 mls/hr DAILY IVPB Last administered on 09/15/18 15:42; Admin Dose 25 MLS/HR; Start 09/15/18 at 14:30; Stop 09/17/18 at 14:29 Ondansetron HCl (Zofran Inj) 4 mg Q6H PRN IV NAUSEA AND/OR VOMITING Last administered on 09/15/18 20:50; Admin Dose 4 MG; Start 09/15/18 at 14:30 Oxycodone HCl (Oxycontin) 20 mg Q12 PO Last administered on 09/15/18 20:48; Admin Dose 20 MG; Start 09/15/18 at 21:00 DES DUNAWAY MD Sep 15, 2018 21:33
[2018-09-16] VITALS (15 sets, daily range): BP systolic 71–122; BP diastolic 43–76; PULSE 80–100; RESP 17–20
[2018-09-16] MEDS: ONDANSETRON 4 MG INJ IV PRN (05:44)
[2018-09-16] MEDS: PANTOPRAZOLE (EC) 40 MG TAB PO SCH (05:44)
[2018-09-16] MEDS: FUROSEMIDE 40 MG INJ IV SCH ×2 (05:44→17:36)
[2018-09-16] MEDS: POTASSIUM CHLORIDE (SR) 20 MEQ TAB PO SCH ×5 (08:58→20:42)
[2018-09-16] MEDS: MAGNESIUM HYDROXIDE 30ML CUP PO SCH (08:58)
[2018-09-16] MEDS: POLYETHYLENE GLYCOL 17 GM PACKET PO SCH ×2 (08:58→20:41)
[2018-09-16] MEDS: DOCUSATE SODIUM 100 MG CAP PO SCH ×2 (08:58→20:41)
[2018-09-16] MEDS: BENAZEPRIL 5 MG TAB PO SCH (08:59)
[2018-09-16] MEDS: MAGNESIUM SULFATE 2 GM/50 ML 50 ML IVPB SCH (08:59)
[2018-09-16] MEDS: oxyCODONE (CR) 10 MG TAB [oxyCONTIN] PO SCH ×2 (08:59→20:41)
[2018-09-16] MEDS: ESCITALOPRAM 10 MG TAB PO SCH (08:59)
[2018-09-16] MEDS: SPIRONOLACTONE 50 MG TAB PO SCH (09:01)
[2018-09-16] MEDS: METOLAZONE 2.5 MG TAB PO SCH ×2 (09:01→20:42)
[2018-09-16] MEDS: ANASTROZOLE 1 MG TAB PO SCH (09:09)
[2018-09-16] MEDS: ONDANSETRON 4 MG TAB PO PRN (09:11)
[2018-09-16] MEDS ORDERED: LIDOCAINE 1% (MPF) 5 ML VIAL ONE (11:44)
--- NOTE | 2018-09-16 13:21 | CONS ---
Assessment/Plan Assessment/Plan Hospital Course (Demo Recall) IMPRESSION: 1. Congestive heart failure exacerbation, diastolic by most recent echo, acute on chronic.-neg trop x 3. Echo this admit EF 60/small pericardia effusion 2. Hypotension, currently low 3. Anasarca. 4. Metastatic breast carcinoma. 5. Leukopenia. 6. Thrombocytopenia.-ongoing 7. Pericardial effusion-small by echo with no HD consequence at this time Recc: -On med-surg -Continue Lasix diuresis as tolerated at increased dose plus metolazone for synergy and now aldactone -S/p IV albumin infusion x 3 -Will further decrease doses of antihypertensives and give dose of albumin now given low BP -Continue arimidex -coreg as tolerated only and will likely d/c benazepril given marginal BP and being held Consultation Date/Type/Reason Admit Date/Time Sep 09, 2018 at 14:53 Initial Consult Date 09/09/18 Type of Consult Cardiology Reason for Consultation CHF Requesting Provider: RUSS JEROME MD Date/Time of Note DATE: 09/16/18 TIME: 13:18 Exam/Review of Systems Vital Signs Vitals Vital Signs Date Temp Pulse Resp B/P (MAP) Pulse Ox O2 O2 Flow FiO2 Time Delivery Rate 09/16/18 84 12:01 09/16/18 18 77/53 (61) 93 2.0 11:45 09/16/18 Nasal 11:10 Cannula 09/16/18 98.0 07:43 09/15/18 28 16:10 Intake and Output 09/15/18 09/15/18 09/16/18 1515:00 23:00 07:00 IntakeIntake Total 240 ml 800 ml OutputOutput Total 400 ml 2 ml BalanceBalance -400 ml 238 ml 800 ml Exam Exam Review of Systems: CONSTITUTIONAL: No fevers, chills. PULMONARY: mild sob CARDIOVASCULAR: No chest pain/palpitations GASTROINTESTINAL: No nausea/vomiting. GENITOURINARY: No hematuria/dysuria. MUSCULOSKELETAL: No myagias/arthalgias. PSYCHIATRIC: The patient denies depression. NEUROLOGIC: generalized weakness Constitutional: alert Psych: no complaints Head: normocephalic ENMT: mucosa pink and moist Neck: supple, jvd (9 cm water) Respiratory: diminished breath sounds (at bases/B) Cardiovascular: regular rate and rhythm Gastrointestinal: soft, non-tender Musculoskeletal: muscle tone (normal) Extremities: pitting pedal edema (R>>L) 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: other (No focal deficits) Labs Result Diagram: 09/16/1837 09/16/18 0537 Results 24hrs Laboratory Tests Test 09/16/18 05:37 White Blood Count 4.6 L Red Blood Count 3.39 L Hemoglobin 10.7 L Hematocrit 32.4 L Mean Corpuscular Volume 95.6 Mean Corpuscular Hemoglobin 31.6 Mean Corpuscular Hemoglobin Concent 33.0 Red Cell Distribution Width 16.5 H Platelet Count 138 #L Mean Platelet Volume 9.5 Immature Granulocytes % 8.100 H Neutrophils % Segmented Neutrophils % (Manual) 39 Band Neutrophils % (Manual) 7 H Lymphocytes % Lymphocytes % (Manual) 16 Monocytes % Monocytes % (Manual) 34 H Eosinophils % Basophils % Basophils % (Manual) 1 Metamyelocytes % (manual) 1 H Myelocytes % (Manual) 1 H Promyelocytes % (Manual) 1 H Nucleated Red Blood Cells % 2 H Immature Granulocytes # 0.370 H Neutrophils # Neutrophils # (Manual) 1.8 Band Neutrophils # 0.3 Lymphocytes (Manual) 0.7 L Lymphocytes # Monocytes # Monocytes # (Manual) 1.5 H Eosinophils # Basophils # Basophils # (Manual) 0.0 Metamyelocytes # 0.0 Myelocytes # 0.0 Promyelocytes # 0.0 Nucleated Red Blood Cells # Platelet Estimate DECREASED Giant Platelets 4 H Polychromasia 2+ Anisocytosis 1+ Microcytosis 1+ Ovalocytes 1+ Sodium Level 129 L Potassium Level 2.9 *L Chloride Level 82 L Carbon Dioxide Level 38 H Anion Gap 9 Blood Urea Nitrogen 9 Creatinine 0.63 Est Glomerular Filtrat Rate mL/min > 60 Glucose Level 99 Calcium Level 8.2 L Total Bilirubin 0.7 Direct Bilirubin 0.00 Indirect Bilirubin 0.7 Aspartate Amino Transf (AST/SGOT) 34 Alanine Aminotransferase (ALT/SGPT) 20 Alkaline Phosphatase 62 Total Protein 5.2 L Albumin 2.8 L Globulin 2.40 Albumin/Globulin Ratio 1.16 Triglycerides Level 178 H Cholesterol Level 131 LDL Cholesterol, Calculated 74 HDL Cholesterol 21 L Cholesterol/HDL Ratio 6.2 Medications Medications Current Medications Acetaminophen (Tylenol Tab) 500 mg Q6H PRN PO MILD PAIN(1-3)OR ELEVATED TEMP Last administered on 09/14/18at 14:29; Admin Dose 500 MG; Start 09/09/18 at 22:30 Anastrozole (Arimidex) 1 mg DAILY PO Last administered on 09/16/18 09:09; Admin Dose 1 MG; Start 09/10/18 at 09:00 Benazepril HCl (Lotensin) 5 mg BID PO Last administered on 09/16/18 08:59; Admin Dose 5 MG; Start 09/09/18 at 22:30 Carvedilol (Coreg) 3.125 mg BID PO Last administered on 09/16/18 09:01; Admin Dose 3.125 MG; Start 09/09/18 at 22:30 Docusate Sodium (Colace) 200 mg BID PO Last administered on 09/16/18 08:58; Admin Dose 200 MG; Start 09/09/18 at 22:30 Escitalopram Oxalate (Lexapro) 10 mg DAILY PO Last administered on 09/16/18 08:59; Admin Dose 10 MG; Start 09/10/18 at 09:00 Magnesium Hydroxide (Milk Of Mag) 30 ml DAILY PO Last administered on 09/16/18 08:58; Admin Dose 30 ML; Start 09/10/18 at 09:00 Ondansetron HCl (Zofran Tab) 4 mg Q6H PRN PO NAUSEA AND/OR VOMITING Last administered on 09/16/18 09:11; Admin Dose 4 MG; Start 09/09/18 at 22:30 Pantoprazole (Protonix Tab) 40 mg AC BREAKFAST PO Last administered on 09/16/18 05:44; Admin Dose 40 MG; Start 09/10/18 at 07:00 Polyethylene Glycol (Miralax) 17 gm BID PO Last administered on 09/16/18 08:58; Admin Dose 17 GM; Start 09/09/18 at 22:30 Furosemide (Lasix) 40 mg BID DIURETICS IV Last administered on 09/16/18 05:44; Admin Dose 40 MG; Start 09/11/18 at 19:09 Metolazone (Zaroxolyn) 2.5 mg BID PO Last administered on 09/16/18 09:01; Admin Dose 2.5 MG; Start 09/13/18 at 05:30 Spironolactone (Aldactone) 50 mg DAILY PO Last administered on 4/1/19at 09:01; Admin Dose 50 MG; Start 09/13/18 at 18:00 Potassium Chloride (Klor-Con 20) 20 meq BID PO Last administered on 09/16/18 08:58; Admin Dose 20 MEQ; Start 09/15/18 at 21:00 Albuterol/ Ipratropium (Duoneb) 3 ml Q8H RESP THERAPY PRN HHN SHORTNESS OF BREATH Last administered on 09/15/18 16:09; Admin Dose 3 ML; Start 09/15/18 at 14:30 Magnesium Sulfate 50 ml @ 25 mls/hr DAILY IVPB Last administered on 09/16/18 08:59; Admin Dose 25 MLS/HR; Start 09/15/18 at 14:30; Stop 09/17/18 at 14:29 Ondansetron HCl (Zofran Inj) 4 mg Q6H PRN IV NAUSEA AND/OR VOMITING Last administered on 09/16/18 05:44; Admin Dose 4 MG; Start 09/15/18 at 14:30 Oxycodone HCl (Oxycontin) 20 mg Q12 PO Last administered on 09/16/18 08:59; Adm in Dose 20 MG; Start 09/15/18 at 21:00 Potassium Chloride (Klor-Con 20) 40 meq Q4 PO Last administered on 09/16/18at 12:50; Admin Dose 40 MEQ; Start 09/16/18 at 09:00; Stop 09/16/18 at 17:01 KAMILA TERESA Sep 16, 2018 13:21
[2018-09-16] MEDS ORDERED: ALBUMIN HUMAN 25% 50 ML IV ONE (13:30)
--- NOTE | 2018-09-16 15:53 | PN ---
Date/Time of Note Date/Time of Note DATE: 09/16/18 TIME: 15:53 Assessment/Plan VTE Prophylaxis Risk score (from Ns)>0 risk: 7 SCD applied (from Ns): No SCD contraindicated: other Pharmacological prophylaxis: other Lines/Catheters IV Catheter Type (from [facility] portacath Central line still needed: No Urinary Cath still in place: No Reason Cath still needed: urinary retention Assessment/Plan Assessment/Plan Status post left thoracentesis for almost 900 cc of fluid evacuation today ,doing well. Hypokalemia addressed. Recheck at 6 PM. Erythematous periorbital area most probably allergic will follow.. 1. Cancer of the left breast. Exact type at this time unknown.MULTIPLE BONY METS, PULMONARY METS 2. Severe pain in the interscapular and lumbar sacral area most probably metastatic lesion possible femoral fracture. pathologic fracture of T9 with 60% of loss of height. Neurosurgical f/u. 3. Obesity. 4. Weight loss 60 pounds during the last 2 years by diet 5. PMS. 6. Myopia. 7. Anemia chronic disease with a drop of her hematocrit to 27 and regaining to 30 without any measures. Latest results 28. Protonix was added. Today hematocrit is 26. Will recheck tomorrow 8. Anxiety disorder. Claustrophobia. Increase Ativan to 1 mg every 8 as needed at Lexapro 10 mg daily. 9. Posttraumatic stress disorder. 10. Pain in the left forearm with a history of fracture of ulna and radius. 11. Tachycardia 12. Hypoxemia at night marginal improved after 2 L of nasal cannula oxygen. 13. Deconditioning 14. 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 15. Pain syndrome. Today the most painful zone is in the right hip area. X- ray did not show any fractures. 16. Hyponatremia-persists; hypokalemia after massive diuresis. 17. Leucopenia-improved. 18. Neutropenia with occasional fever and chills. Last chemotherapy 5 days ago. 19. Hypoalbuminemia. 20.Right sided cp after catheter insertion and correction less discomfort. 21. Decreased edema both lower extremities with hypotension-improving 22.Swelling of the left forearm-persist. Now with erythema involving mainly the dorsum of the left upper extremity. 23.bilateral pleural effusions ; plan to perform tap tomorrow morning preferably from the left side first . 24. Systolic over diastolic congestive heart failure with a right more than left lower extremity swelling with no DVT in latest venous Doppler. Result Diagram: 09/16/18 0537 09/16/18 0537 Results 24hrs Laboratory Tests Test 09/16/18 05:37 White Blood Count 4.6 L Red Blood Count 3.39 L Hemoglobin 10.7 L Hematocrit 32.4 L Mean Corpuscular Volume 95.6 Mean Corpuscular Hemoglobin 31.6 Mean Corpuscular Hemoglobin Concent 33.0 Red Cell Distribution Width 16.5 H Platelet Count 138 #L Mean Platelet Volume 9.5 Immature Granulocytes % 8.100 H Neutrophils % Segmented Neutrophils % (Manual) 39 Band Neutrophils % (Manual) 7 H Lymphocytes % Lymphocytes % (Manual) 16 Monocytes % Monocytes % (Manual) 34 H Eosinophils % Basophils % Basophils % (Manual) 1 Metamyelocytes % (manual) 1 H Myelocytes % (Manual) 1 H Promyelocytes % (Manual) 1 H Nucleated Red Blood Cells % 2 H Immature Granulocytes # 0.370 H Neutrophils # Neutrophils # (Manual) 1.8 Band Neutrophils # 0.3 Lymphocytes (Manual) 0.7 L Lymphocytes # Monocytes # Monocytes # (Manual) 1.5 H Eosinophils # Basophils # Basophils # (Manual) 0.0 Metamyelocytes # 0.0 Myelocytes # 0.0 Promyelocytes # 0.0 Nucleated Red Blood Cells # Platelet Estimate DECREASED Giant Platelets 4 H Polychromasia 2+ Anisocytosis 1+ Microcytosis 1+ Ovalocytes 1+ Sodium Level 129 L Potassium Level 2.9 *L Chloride Level 82 L Carbon Dioxide Level 38 H Anion Gap 9 Blood Urea Nitrogen 9 Creatinine 0.63 Est Glomerular Filtrat Rate mL/min > 60 Glucose Level 99 Calcium Level 8.2 L Total Bilirubin 0.7 Direct Bilirubin 0.00 Indirect Bilirubin 0.7 Aspartate Amino Transf (AST/SGOT) 34 Alanine Aminotransferase (ALT/SGPT) 20 Alkaline Phosphatase 62 Total Protein 5.2 L Albumin 2.8 L Globulin 2.40 Albumin/Globulin Ratio 1.16 Triglycerides Level 178 H Cholesterol Level 131 LDL Cholesterol, Calculated 74 HDL Cholesterol 21 L Cholesterol/HDL Ratio 6.2 Subjective 24 Hr Interval Summary Free Text/Dictation I feel better after removal of the fluid. My shortness of breath is now less intense. No pain. Still edematous right more than left lower extremity Constitutional: improved, poor po, requiring IVF, requiring O2; No no complaints, No chills, No diaphoresis, No disoriented, No febrile, No other Eyes: redness (Periorbital area both upper and lower leads with scratches and edema.); No no complaints, No pain, No discharge, No visual change, No other ENT: No no complaints, No bleeding, No pain, No congestion, No discharge, No dysphagia, No sore throat, No other Respiratory: cough, pleuritic pain, shortness of breath; No no complaints, No pain, No sputum, No wheezing, No other Cardiovascular: edema; No no complaints, No chest pain, No lightheadedness, No orthopenea, No palpitations, No paroxysmal nocturnal dyspnea, No other Gastrointestinal: constipation, decreased appetite, flatus, nausea, passing stool; No no complaints, No pain, No blood, No diarrhea, No vomiting, No other Genitourinary: dysuria, flank pain; No no complaints, No bleeding, No discharge, No hematuria, No other Musculoskeletal: back pain, bone/joint pain, neck pain; No no complaints, No restricted range of motion, No swelling, No other Neurologic: dizziness, headache; No no complaints, No confusion, No focal-weakness, No syncope, No seizure, No other Psychological: anxiety, confusion, depression; No no complaints, No nl mood/affect, No suicidal, No other Exam/Review of Systems Exam Vitals Vital Signs Date Temp Pulse Resp B/P (MAP) Pulse Ox O2 O2 Flow FiO2 Time Delivery Rate 09/16/18 84 12:01 09/16/18 18 77/53 (61) 93 2.0 11:45 09/16/18 Nasal 11:10 Cannula 09/16/18 98.0 07:43 09/15/18 28 16:10 Intake and Output 09/15/18 09/15/18 09/16/18 1515:00 23:00 07:00 IntakeIntake Total 240 ml 800 ml OutputOutput Total 400 ml 2 ml BalanceBalance -400 ml 238 ml 800 ml Constitutional: alert, oriented, well developed, non-verbal, distress, frail, obese; No other Psych: anxiety, depression; No no complaints, No nl mood/affect, No confusion, No suicidal, No other Head: normocephalic, atraumatic; No lacerations, No hematomas, No other Eyes: EOMI, nl lids, PERRL; No nl conjunctiva, No nl sclera, No icteric, No fundi, disc, No other ENMT: nl nasal mucosa & septum; No nl external ears & nose, No nl lips & teeth, No mucosa pink and moist, No intubated, No tympanic membranes, No other Neck: jvd, bruits; No supple, No non-tender, No masses, No thyromegaly, No nuchal rigidity, No other Respiratory: normal air movement, congested cough, diminished breath sounds Cardiovascular: bruits, edema (Right more than left lower extremity but significantly less comparing with yesterday.); No regular rate and rhythm, No nl pulses, No diastolic murmur, No gallop, No irregular rhythm, No jugular venous distention (JVD), No murmurs/extra sounds, No rub, No systolic murmur, No S3, No S4, No other Gastrointestinal: bowel sounds, distended; No soft, No nl liver, spleen, No non-tender, No ascites, No firm, No hepatomegaly, No mass, No rebound or guarding, No splenomegaly, No surgical scars, No tender, No other Musculoskeletal: joint tenderness; No nl extremities to inspection, No nl gait and stance, No muscle tone, No muscle weakness, No range of motion, No spine non-tender, No swelling, No other Extremities: cyanosis, edema, pitting pedal edema, tenderness; No normal pulses, No calf tenderness, No clubbing, No palpable cord, No other Results Results 24hrs Laboratory Tests Test 09/16/18 05:37 White Blood Count 4.6 L Red Blood Count 3.39 L Hemoglobin 10.7 L Hematocrit 32.4 L Mean Corpuscular Volume 95.6 Mean Corpuscular Hemoglobin 31.6 Mean Corpuscular Hemoglobin Concent 33.0 Red Cell Distribution Width 16.5 H Platelet Count 138 #L Mean Platelet Volume 9.5 Immature Granulocytes % 8.100 H Neutrophils % Segmented Neutrophils % (Manual) 39 Band Neutrophils % (Manual) 7 H Lymphocytes % Lymphocytes % (Manual) 16 Monocytes % Monocytes % (Manual) 34 H Eosinophils % Basophils % Basophils % (Manual) 1 Metamyelocytes % (manual) 1 H Myelocytes % (Manual) 1 H Promyelocytes % (Manual) 1 H Nucleated Red Blood Cells % 2 H Immature Granulocytes # 0.370 H Neutrophils # Neutrophils # (Manual) 1.8 Band Neutrophils # 0.3 Lymphocytes (Manual) 0.7 L Lymphocytes # Monocytes # Monocytes # (Manual) 1.5 H Eosinophils # Basophils # Basophils # (Manual) 0.0 Metamyelocytes # 0.0 Myelocytes # 0.0 Promyelocytes # 0.0 Nucleated Red Blood Cells # Platelet Estimate DECREASED Giant Platelets 4 H Polychromasia 2+ Anisocytosis 1+ Microcytosis 1+ Ovalocytes 1+ Sodium Level 129 L Potassium Level 2.9 *L Chloride Level 82 L Carbon Dioxide Level 38 H Anion Gap 9 Blood Urea Nitrogen 9 Creatinine 0.63 Est Glomerular Filtrat Rate mL/min > 60 Glucose Level 99 Calcium Level 8.2 L Total Bilirubin 0.7 Direct Bilirubin 0.00 Indirect Bilirubin 0.7 Aspartate Amino Transf (AST/SGOT) 34 Alanine Aminotransferase (ALT/SGPT) 20 Alkaline Phosphatase 62 Total Protein 5.2 L Albumin 2.8 L Globulin 2.40 Albumin/Globulin Ratio 1.16 Triglycerides Level 178 H Cholesterol Level 131 LDL Cholesterol, Calculated 74 HDL Cholesterol 21 L Cholesterol/HDL Ratio 6.2 Medications Medication Current Medications Acetaminophen (Tylenol Tab) 500 mg Q6H PRN PO MILD PAIN(1-3)OR ELEVATED TEMP Last administered on 09/14/18 14:29; Admin Dose 500 MG; Start 09/09/18 at 22:30 Anastrozole (Arimidex) 1 mg DAILY PO Last administered on 09/16/18 09:09; Admin Dose 1 MG; Start 09/10/18 at 09:00 Carvedilol (Coreg) 3.125 mg BID PO Last administered on 09/16/18 09:01; Admin Dose 3.125 MG; Start 09/09/18 at 22:30 Docusate Sodium (Colace) 200 mg BID PO Last administered on 09/16/18 08:58; Admin Dose 200 MG; Start 09/09/18 at 22:30 Escitalopram Oxalate (Lexapro) 10 mg DAILY PO Last administered on 09/16/18 08:59; Admin Dose 10 MG; Start 09/10/18 at 09:00 Magnesium Hydroxide (Milk Of Mag) 30 ml DAILY PO Last administered on 09/16/18 08:58; Admin Dose 30 ML; Start 09/10/18 at 09:00 Ondansetron HCl (Zofran Tab) 4 mg Q6H PRN PO NAUSEA AND/OR VOMITING Last administered on 09/16/18 09:11; Admin Dose 4 MG; Start 09/09/18 at 22:30 Pantoprazole (Protonix Tab) 40 mg AC BREAKFAST PO Last administered on 09/16/18 t 05:44; Admin Dose 40 MG; Start 09/10/18 at 07:00 Polyethylene Glycol (Miralax) 17 gm BID PO Last administered on 09/16/18 08:58; Admin Dose 17 GM; Start 09/09/18 at 22:30 Furosemide (Lasix) 40 mg BID DIURETICS IV Last administered on 09/16/18 05:44; Admin Dose 40 MG; Start 09/11/18 at 19:09 Metolazone (Zaroxolyn) 2.5 mg BID PO Last administered on 09/16/18 09:01; Admin Dose 2.5 MG; Start 09/13/18 at 05:30 Spironolactone (Aldactone) 50 mg DAILY PO Last administered on 09/16/18 09:01; Admin Dose 50 MG; Start 09/13/18 at 18:00 Potassium Chloride (Klor-Con 20) 20 meq BID PO Last administered on 09/16/18 08:58; Admin Dose 20 MEQ; Start 09/15/18 at 21:00 Albuterol/ Ipratropium (Duoneb) 3 ml Q8H RESP THERAPY PRN HHN SHORTNESS OF BREATH Last administered on 09/15/18 16:09; Admin Dose 3 ML; Start 09/15/18 at 14:30 Magnesium Sulfate 50 ml @ 25 mls/hr DAILY IVPB Last administered on 09/16/18 08:59; Admin Dose 25 MLS/HR; Start 09/15/18 at 14:30; Stop 09/17/18 at 14:29 Ondansetron HCl (Zofran Inj) 4 mg Q6H PRN IV NAUSEA AND/OR VOMITING Last administered on 09/16/18 05:44; Admin Dose 4 MG; Start 09/15/18 at 14:30 Oxycodone HCl (Oxycontin) 20 mg Q12 PO Last administered on 09/16/18 08:59; Admin Dose 20 MG; Start 09/15/18 at 21:00 Potassium Chloride (Klor-Con 20) 40 meq Q4 PO Last administered on 09/16/18at 12:50; Admin Dose 40 MEQ; Start 09/16/18 at 09:00; Stop 09/16/18 at 17:01 Benazepril HCl (Lotensin) 5 mg DAILY PO ; Start 09/17/18 at 09:00 RUSS JEROME MD Sep 16, 2018 15:53
[2018-09-16] MEDS: OLOPATADINE 0.1% 5 ML OPH BOTH EYES SCH (20:43)
--- NOTE | 2018-09-16 23:44 | CONS ---
Assessment/Plan Assessment/Plan Hospital Course (Demo Recall) METASTATIC BREAST CANCER WITH PRIMARY ADENOCARCINOMA IN the left breast. MULTIPLE BONY METS, PULMONARY METS, LIVER METS CHEMO ON HOLD PT HAS A VERY GOOD RESPONSE TO CHEMO AND AI CONT AI FOR NOW CT ABD FOR RESTAGING 3..19- noted , stable CT CHEST- STABLE/IMPROVING 1. Moderate bilateral pleural effusions with adjacent lung base consolidation/atelectasis. 2. Moderate pericardial effusion. 3. Decreased size of previously prominent mediastinal lymph nodes. Decreased size of sub centimeter axillary lymph nodes. 4. Stable nonspecific pulmonary nodules as described above. 5. Stable soft tissue nodule of the anterior left chest wall/breast. 6. Redemonstrated diffuse sclerotic metastatic osseous lesions with stable compression deformities of the thoracic spine. 7. Nodular contour of the liver with multiple hypoattenuating masses, grossly similar to prior exam. WILL OBTAIN CYTOLOGY IN FUTURE POS PERICARDIOCENTESIS- PER CARDIOLOGY CARD - TO MONITOR FOR PERICARDIAL TAMPONADE Leucopenia- post chemo NEUPOGEN- DC monitor closely post Neutropenia with occasional fever and chills. Anemia chronic disease SOB PLEURAL EFFUSIONS thoracentesis Fluid overload diuretic cardiology F-UP Congestive heart failure exacerbation, diastolic by most recent echo, acute on chronic.-neg trop x 3. Echo this admit EF 60/small pericardia effusion Hypotension, currently borderline-overall improved Anasarca. Severe pain in the interscapular and lumbar sacral area most probably metastatic lesion possible femoral fracture. pathologic fracture of T9 with 60% of loss of height. Obesity. Weight loss 60 pounds during the last 2 years PMS. Myopia. Anxiety disorder. Claustrophobia. Posttraumatic stress disorder. Pain in the left forearm with a history of fracture of ulna and radius. Tachycardia Hypoxemia at night marginal improved after 2 L of nasal cannula oxygen. Deconditioning Pain syndrome. Today the most painful zone is in the right hip area. X-ray did not show any fractures. Hyponatremia- resolved Hypoalbuminemia Right sided cp after catheter insertion and correction less discomfort. Decreased edema both lower extremities with hypotension-improving Swelling of the left forearm-persist. Consultation Date/Type/Reason Admit Date/Time Sep 09, 2018 at 14:53 Initial Consult Date 09/09/18 Type of Consult [facility] Requesting Provider: RUSS JEROME MD Date/Time of Note DATE: 09/16/18 TIME: 23:44 24 HR Interval Summary Free Text/Dictation nad + Sob Exam/Review of Systems Exam Vitals Vital Signs Date Temp Pulse Resp B/P (MAP) Pulse Ox O2 O2 Flow FiO2 Time Delivery Rate 09/16/18 98.3 95 18 112/60 96 23:11 (77) 09/16/18 Nasal 2.0 20:40 Cannula 09/15/18 28 16:10 Intake and Output 09/15/18 09/15/18 09/16/18 1515:00 23:00 07:00 IntakeIntake Total 240 ml 800 ml OutputOutput Total 400 ml 2 ml BalanceBalance -400 ml 238 ml 800 ml Exam Constitutional: alert, oriented, well developed, distress, frail Psych: anxiety, depression; No no complaints, No nl mood/affect, No confusion, No suicidal, No other Head: normocephalic, atraumatic Eyes: EOMI, nl lids; No nl conjunctiva, No nl sclera, No PERRL, No icteric, No fundi, disc, No other ENMT: No nl external ears & nose, No nl lips & teeth, No nl nasal mucosa & septum, No mucosa pink and moist, No intubated, No tympanic membranes, No other Neck: supple, jvd, bruits; No non-tender, No masses, No thyromegaly, No nuchal rigidity, No other Respiratory: congested cough, diminished breath sounds (Left more prominent than the right side.); No clear to auscultation, No normal air movement, No crackles/rales, No intercostal retraction, No labored breathing, No respirations, No tactile fremitus, No wheezing, No other Cardiovascular: No regular rate and rhythm, No nl pulses, No bruits, No diastolic murmur, No edema, No gallop, No irregular rhythm, No jugular venous distention (JVD), No murmurs/extra sounds, No rub, No systolic murmur, No S3, No S4, No other Gastrointestinal: soft, nl liver, spleen, distended Extremities: edema (Left upper extremity more prominent in the right.), LE BL Results Result Diagram: 09/16/18 0537 09/16/18 1825 Results 24hrs Laboratory Tests Test 09/16/18 05:37 09/16/18 18:25 White Blood Count 4.6 L Red Blood Count 3.39 L Hemoglobin 10.7 L Hematocrit 32.4 L Mean Corpuscular Volume 95.6 Mean Corpuscular Hemoglobin 31.6 Mean Corpuscular Hemoglobin Concent 33.0 Red Cell Distribution Width 16.5 H Platelet Count 138 #L Mean Platelet Volume 9.5 Immature Granulocytes % 8.100 H Neutrophils % Segmented Neutrophils % (Manual) 39 Band Neutrophils % (Manual) 7 H Lymphocytes % Lymphocytes % (Manual) 16 Monocytes % Monocytes % (Manual) 34 H Eosinophils % Basophils % Basophils % (Manual) 1 Metamyelocytes % (manual) 1 H Myelocytes % (Manual) 1 H Promyelocytes % (Manual) 1 H Nucleated Red Blood Cells % 2 H Immature Granulocytes # 0.370 H Neutrophils # Neutrophils # (Manual) 1.8 Band Neutrophils # 0.3 Lymphocytes (Manual) 0.7 L Lymphocytes # Monocytes # Monocytes # (Manual) 1.5 H Eosinophils # Basophils # Basophils # (Manual) 0.0 Metamyelocytes # 0.0 Myelocytes # 0.0 Promyelocytes # 0.0 Nucleated Red Blood Cells # Platelet Estimate DECREASED Giant Platelets 4 H Polychromasia 2+ Anisocytosis 1+ Microcytosis 1+ Ovalocytes 1+ Sodium Level 129 L Potassium Level 2.9 *L 4.0 Chloride Level 82 L Carbon Dioxide Level 38 H Anion Gap 9 Blood Urea Nitrogen 9 Creatinine 0.63 Est Glomerular Filtrat Rate mL/min > 60 Glucose Level 99 Calcium Level 8.2 L Total Bilirubin 0.7 Direct Bilirubin 0.00 Indirect Bilirubin 0.7 Aspartate Amino Transf (AST/SGOT) 34 Alanine Aminotransferase (ALT/SGPT) 20 Alkaline Phosphatase 62 Total Protein 5.2 L Albumin 2.8 L Globulin 2.40 Albumin/Globulin Ratio 1.16 Triglycerides Level 178 H Cholesterol Level 131 LDL Cholesterol, Calculated 74 HDL Cholesterol 21 L Cholesterol/HDL Ratio 6.2 Medications Medication Current Medications Acetaminophen (Tylenol Tab) 500 mg Q6H PRN PO MILD PAIN(1-3)OR ELEVATED TEMP Last administered on 09/14/18at 14:29; Admin Dose 500 MG; Start 09/09/18 at 22:30 Anastrozole (Arimidex) 1 mg DAILY PO Last administered on 09/16/18at 09:09; Admin Dose 1 MG; Start 09/10/18 at 09:00 Carvedilol (Coreg) 3.125 mg BID PO Last administered on 09/16/18 20:40; Admin Dose 3.125 MG; Start 09/09/18 at 22:30 Docusate Sodium (Colace) 200 mg BID PO Last administered on 09/16/18 20:41; Admin Dose 200 MG; Start 09/09/18 at 22:30 Escitalopram Oxalate (Lexapro) 10 mg DAILY PO Last administered on 09/16/18 08:59; Admin Dose 10 MG; Start 09/10/18 at 09:00 Magnesium Hydroxide (Milk Of Mag) 30 ml DAILY PO Last administered on 09/16/18 08:58; Admin Dose 30 ML; Start 09/10/18 at 09:00 Ondansetron HCl (Zofran Tab) 4 mg Q6H PRN PO NAUSEA AND/OR VOMITING Last administered on 09/16/18 09:11; Admin Dose 4 MG; Start 09/09/18 at 22:30 Pantoprazole (Protonix Tab) 40 mg AC BREAKFAST PO Last administered on 09/16/18 05:44; Admin Dose 40 MG; Start 09/10/18 at 07:00 Polyethylene Glycol (Miralax) 17 gm BID PO Last administered on 09/16/18 20:41; Admin Dose 17 GM; Start 09/09/18 at 22:30 Furosemide (Lasix) 40 mg BID DIURETICS IV Last administered on 09/16/18 17:36; Admin Dose 40 MG; Start 09/11/18 at 19:09 Metolazone (Zaroxolyn) 2.5 mg BID PO Last administered on 09/16/18 20:42; Admin Dose 2.5 MG; Start 09/13/18 at 05:30 Spironolactone (Aldactone) 50 mg DAILY PO Last administered on 09/16/18 09:01; Admin Dose 50 MG; Start 09/13/18 at 18:00 Potassium Chloride (Klor-Con 20) 20 meq BID PO Last administered on 09/16/18 20:42; Admin Dose 20 MEQ; Start 09/15/18 at 21:00 Albuterol/ Ipratropium (Duoneb) 3 ml Q8H RESP THERAPY PRN HHN SHORTNESS OF BREATH Last administered on 09/15/18 16:09; Admin Dose 3 ML; Start 09/15/18 at 14:30 Magnesium Sulfate 50 ml @ 25 mls/hr DAILY IVPB Last administered on 09/16/18at 08:59; Admin Dose 25 MLS/HR; Start 09/15/18 at 14:30; Stop 09/17/18 at 14:29 Ondansetron HCl (Zofran Inj) 4 mg Q6H PRN IV NAUSEA AND/OR VOMITING Last administered on 09/16/18at 05:44; Admin Dose 4 MG; Start 09/15/18 at 14:30 Oxycodone HCl (Oxycontin) 20 mg Q12 PO Last administered on 09/16/18at 20:41; Admin Dose 20 MG; Start 09/15/18 at 21:00 Benazepril HCl (Lotensin) 5 mg DAILY PO ; Start 09/17/18 at 09:00 Olopatadine HCl (Patanol 0.1% Oph) 1 drop BID BOTH EYES Last administered on 09/16/18at 20:43; Admin Dose 1 DROP; Start 09/16/18 at 21:00 Loratadine (Claritin) 10 mg DAILY PO ; Start 09/17/18 at 09:00 DES DUNAWAY MD Sep 16, 2018 23:44
[2018-09-17] VITALS (12 sets, daily range): BP systolic 96–105; BP diastolic 55–65; PULSE 82–92; RESP 18–20
[2018-09-17] MEDS: FUROSEMIDE 40 MG INJ IV SCH ×2 (05:00→17:26)
[2018-09-17] MEDS: PANTOPRAZOLE (EC) 40 MG TAB PO SCH ×2 (05:00→08:47)
[2018-09-17] MEDS: OLOPATADINE 0.1% 5 ML OPH BOTH EYES SCH ×2 (08:44→21:31)
[2018-09-17] MEDS: POLYETHYLENE GLYCOL 17 GM PACKET PO SCH ×2 (08:45→21:00)
[2018-09-17] MEDS: MAGNESIUM SULFATE 2 GM/50 ML 50 ML IVPB SCH (08:45)
[2018-09-17] MEDS: MAGNESIUM HYDROXIDE 30ML CUP PO SCH (08:45)
[2018-09-17] MEDS: ESCITALOPRAM 10 MG TAB PO SCH (08:46)
[2018-09-17] MEDS: oxyCODONE (CR) 10 MG TAB [oxyCONTIN] PO SCH ×2 (08:46→21:33)
[2018-09-17] MEDS: DOCUSATE SODIUM 100 MG CAP PO SCH ×2 (08:46→21:30)
[2018-09-17] MEDS: BENAZEPRIL 5 MG TAB PO SCH (08:47)
[2018-09-17] MEDS: LORATADINE 10 MG TAB PO SCH (08:48)
[2018-09-17] MEDS: SPIRONOLACTONE 50 MG TAB PO SCH (08:48)
[2018-09-17] MEDS: POTASSIUM CHLORIDE (SR) 20 MEQ TAB PO SCH ×2 (08:49→21:32)
[2018-09-17] MEDS: METOLAZONE 2.5 MG TAB PO SCH ×2 (09:00→21:33)
[2018-09-17] MEDS: ANASTROZOLE 1 MG TAB PO SCH (09:11)
--- NOTE | 2018-09-17 09:58 | CONS ---
Consult Date/Type/Reason Admit Date/Time Sep 09, 2018 at 14:53 Initial Consult Date 09/09/18 Requesting Provider: RUSS JEROME MD Date/Time of Note DATE: 09/17/18 TIME: 09:56 Subjective NO acute events - pt stable overall - no CP now - improved s/p thoracocentesis - improve tachy, less CHF by exam - will monitor clinically now. ROS: No fever, no chills, no nausea, no vomiting, no diarrhea/constipation No recent weight changes No chest pain, no PND, no orthopnea - improved SOB No dizziness, blurred vision No thirst, no heat or cold intolerance Objective Vitals Vital Signs Date Temp Pulse Resp B/P (MAP) Pulse Ox O2 O2 Flow FiO2 Time Delivery Rate 09/17/18 84 08:01 09/17/18 Nasal 2.0 07:38 Cannula 09/17/18 98.0 18 96/55 (69) 97 07:14 09/15/18 28 16:10 Intake and Output 09/16/18 09/16/18 09/17/18 1515:00 23:00 07:00 IntakeIntake Total 700 ml 1000 ml OutputOutput Total 3 ml BalanceBalance 697 ml 1000 ml Results/Medications Result Diagram: 09/16/18 0537 09/16/18 1825 Results 24 hrs Laboratory Tests Test 09/16/18 18:25 Potassium Level 4.0 Home Meds Reported Medications Potassium Chloride* (Potassium Chloride*) 20 Meq Tablet.er, 20 MEQ PO DAILY, TAB.SA 09/09/18 Epoetin Cr (Procrit) 4,000 Unit/1 Ml Vial, 4000 UNIT IJ Q FRI, VIAL 7:00AM-7:00PM,HOLD IF HGB>10 09/09/18 Ondansetron Hcl* (Zofran*) 4 Mg Tab, 4 MG PO Q6H PRN for NAUSEA AND OR VOMITING, TAB 08/22/18 Pantoprazole* (Pantoprazole*) 40 Mg Tablet.dr, 40 MG PO AC BREAKFAST, TAB 08/22/18 Oxycodone Hcl* (Oxycontin*) 20 Mg Tab.er.12h, 20 MG PO Q12, TAB 08/22/18 Amlodipine Besylate* (Norvasc*) 5 Mg Tablet, 5 MG PO BID, TAB HOLD FOR SBP <110. 08/22/18 Polyethylene Glycol* (Miralax*) 17 Gm Powd.pack, 17 GM PO BID, #60 PACKET ON -12:00 TO 4:00PM 08/22/18 Magnesium Hydroxide* (Milk Of Magnesia*) 400 Mg/5 Ml Oral.susp, 30 ML PO DAILY, ML 08/22/18 Escitalopram Oxalate* (Lexapro*) 10 Mg Tablet, 10 MG PO DAILY, #30 TAB 08/22/18 Furosemide* (Furosemide*) 20 Mg Tablet, 20 MG PO DAILY, #60 TAB HOLD FOR SBP <110. 08/22/18 Docusate Sodium* (Colace*) 100 Mg Capsule, 200 MG PO BID, #60 CAP 08/22/18 Carvedilol* (Carvedilol*) 3.125 Mg Tablet, 3.125 MG PO BID, #60 TAB HOLD FOR SBP <110 OR WA <60. GIVE WITH FOOD. 08/22/18 Lactose-Free Food (Boost High Protein) 237 Ml Liquid, 120 ML PO BID 08/22/18 Benazepril Hcl* (Benazepril Hcl*) 5 Mg Tablet, 5 MG PO BID, #60 TAB HOLD FOR SBP <110. 08/22/18 Anastrozole* (Arimidex*) 1 Mg Tablet, 1 MG PO DAILY, #30 TAB 08/22/18 Acetaminophen* (Acetaminophen*) 500 MG Extra Strength Tablet, 500 MG PO Q6H PRN for PAIN AND OR ELEVATED TEMP, TAB 08/22/18 Medications Current Medications Acetaminophen (Tylenol Tab) 500 mg Q6H PRN PO MILD PAIN(1-3)OR ELEVATED TEMP Last administered on 09/14/18at 14:29; Admin Dose 500 MG; Start 09/09/18 at 22:30 Anastrozole (Arimidex) 1 mg DAILY PO Last administered on 09/17/18at 09:11; Admin Dose 1 MG; Start 09/10/18 at 09:00 Carvedilol (Coreg) 3.125 mg BID PO Last administered on 09/16/18at 20:40; Admin Dose 3.125 MG; Start 09/09/18 at 22:30 Docusate Sodium (Colace) 200 mg BID PO Last administered on 09/17/18at 08:46; Admin Dose 200 MG; Start 09/09/18 at 22:30 Escitalopram Oxalate (Lexapro) 10 mg DAILY PO Last administered on 09/17/18 08:46; Admin Dose 10 MG; Start 09/10/18 at 09:00 Magnesium Hydroxide (Milk Of Mag) 30 ml DAILY PO Last administered on 09/17/18 08:45; Admin Dose 30 ML; Start 09/10/18 at 09:00 Ondansetron HCl (Zofran Tab) 4 mg Q6H PRN PO NAUSEA AND/OR VOMITING Last administered on 09/16/18 09:11; Admin Dose 4 MG; Start 09/09/18 at 22:30 Pantoprazole (Protonix Tab) 40 mg AC BREAKFAST PO Last administered on 09/17/18 08:47; Admin Dose 40 MG; Start 09/10/18 at 07:00 Polyethylene Glycol (Miralax) 17 gm BID PO Last administered on 09/17/18 08:45; Admin Dose 17 GM; Start 09/09/18 at 22:30 Furosemide (Lasix) 40 mg BID DIURETICS IV Last administered on 09/17/18 05:00; Admin Dose 40 MG; Start 09/11/18 at 19:09 Metolazone (Zaroxolyn) 2.5 mg BID PO Last administered on 09/16/18 20:42; Admin Dose 2.5 MG; Start 09/13/18 at 05:30 Spironolactone (Aldactone) 50 mg DAILY PO Last administered on 09/17/18 08:48; Admin Dose 50 MG; Start 09/13/18 at 18:00 Potassium Chloride (Klor-Con 20) 20 meq BID PO Last administered on 09/17/18 08:49; Admin Dose 20 MEQ; Start 09/15/18 at 21:00 Albuterol/ Ipratropium (Duoneb) 3 ml Q8H RESP THERAPY PRN HHN SHORTNESS OF BREATH Last administered on 09/15/18 16:09; Admin Dose 3 ML; Start 09/15/18 at 14:30 Magnesium Sulfate 50 ml @ 25 mls/hr DAILY IVPB Last administered on 09/17/18 08:45; Admin Dose 25 MLS/HR; Start 09/15/18 at 14:30; Stop 09/17/18 at 14:29 Ondansetron HCl (Zofran Inj) 4 mg Q6H PRN IV NAUSEA AND/OR VOMITING Last administered on 09/16/18at 05:44; Admin Dose 4 MG; Start 09/15/18 at 14:30 Oxycodone HCl (Oxycontin) 20 mg Q12 PO Last administered on 09/17/18at 08:46; Admin Dose 20 MG; Start 09/15/18 at 21:00 Benazepril HCl (Lotensin) 5 mg DAILY PO ; Start 09/17/18 at 09:00 Olopatadine HCl (Patanol 0.1% Oph) 1 drop BID BOTH EYES Last administered on 09/17/18at 08:44; Admin Dose 1 DROP; Start 09/16/18 at 21:00 Loratadine (Claritin) 10 mg DAILY PO Last administered on 09/17/18at 08:48; Admin Dose 10 MG; Start 09/17/18 at 09:00 Assessment/Plan Hospital Course (Demo Recall) 1. Congestive heart failure exacerbation, diastolic by most recent echo, acute on chronic.-neg trop x 3. Echo this admit EF 60/small pericardia effusion - respondiong to diuresis, feels better now - now with increased retention - diffclt to diureses with low BP - better now 2. Hypotension, currently borderline-overall improved - stable - will monitor now - ADVISE TELE - improved hypoxia 3. Anasarca - con;t fluid optimization - responded to diuresis 4. Metastatic breast carcinoma - overall poor prognosis 5. Leukopenia- on meds. 6. Thrombocytopenia.-ongoing - no active bleeding now, H/H stable at 10.7 - no active bleeding now - stable EMILY NELSON MD Sep 17, 2018 09:58
--- NOTE | 2018-09-17 21:57 | PN ---
Date/Time of Note Date/Time of Note DATE: 09/17/18 TIME: 21:50 Assessment/Plan VTE Prophylaxis Risk score (from Nsg)>0 risk: 8 SCD applied (from Ns): No SCD contraindicated: low risk/ambulating Pharmacological prophylaxis: NA/contraindicated Pharm contraindication: low risk/ambulating Lines/Catheters IV [facility]ter [facility]from [facility]): Peripheral IV Central line still needed: No Urinary Cath still in place: No Reason Cath still needed: urinary retention Assessment/Plan Assessment/Plan Status post left thoracentesis for almost 900 cc of fluid evacuation today ,doing well. Hypokalemia addressed. Recheck at 6 PM. Erythematous periorbital area most probably allergic will follow.. 1. Cancer of the left breast. Exact type at this time unknown.MULTIPLE BONY METS, PULMONARY METS 2. Severe pain in the interscapular and lumbar sacral area most probably metastatic lesion possible femoral fracture. pathologic fracture of T9 with 60% of loss of height. Neurosurgical f/u. 3. Obesity. 4. Weight loss 60 pounds during the last 2 years by diet 5. PMS. 6. Myopia. 7. Anemia chronic disease with a drop of her hematocrit to 27 and regaining to 30 without any measures. Latest results 28. Protonix was added. Today hematocrit is 26. Will recheck tomorrow 8. Anxiety disorder. Claustrophobia. Increase Ativan to 1 mg every 8 as needed at Lexapro 10 mg daily. 9. Posttraumatic stress disorder. 10. Pain in the left forearm with a history of fracture of ulna and radius. 11. Tachycardia 12. Hypoxemia at night marginal improved after 2 L of nasal cannula oxygen. 13. Deconditioning 14. 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 15. Pain syndrome. Today the most painful zone is in the right hip area. X- ray did not show any fractures. 16. Hyponatremia-persists; hypokalemia after massive diuresis. 17. Leucopenia-improved. 18. Neutropenia with occasional fever and chills. Last chemotherapy 5 days ago. 19. Hypoalbuminemia. 20.Right sided cp after catheter insertion and correction less discomfort. 21. Decreased edema both lower extremities with hypotension-improving 22.Swelling of the left forearm-persist. Now with erythema involving mainly the dorsum of the left upper extremity. 23.bilateral pleural effusions ; plan to perform tap tomorrow morning preferably from the left side first . 24. Systolic over diastolic congestive heart failure with a right more than left lower extremity swelling with no DVT in latest venous Doppler. Result Diagram: Result Diagram: 09/16/18 0537 09/16/18 1825 Subjective 24 Hr Interval Summary Free Text/Dictation Today my heart rate is slower. It was racing last days. My breathing had improved. Actually was unable to breathe through the incentive spirometry yes terday today he was able to breathe and reached a level of thousand cc. I am forced myself and I am able to sit up myself. But he is shaky I am afraid of falling. Right lower extremity edema also decreased. Constitutional: poor po, requiring IVF, requiring O2; No no complaints, No improved, No chills, No diaphoresis, No disoriented, No febrile, No other Eyes: redness; No no complaints, No pain, No discharge, No visual change, No other ENT: congestion; No no complaints, No bleeding, No pain, No discharge, No dysphagia, No sore throat, No other Respiratory: pleuritic pain, shortness of breath; No no complaints, No pain, No cough, No sputum, No wheezing, No other Cardiovascular: chest pain, edema, lightheadedness, orthopenea; No no complaints, No palpitations, No paroxysmal nocturnal dyspnea, No other Gastrointestinal: constipation, decreased appetite, nausea, passing stool; No no complaints, No pain, No blood, No diarrhea, No flatus, No vomiting, No other Genitourinary: dysuria; No no complaints, No bleeding, No discharge, No flank pain, No hematuria, No other Musculoskeletal: back pain, bone/joint pain, neck pain Skin: pruritis, rash; No no complaints, No bruising, No erythema, No laceration, No skin lesions, No other Neurologic: confusion, dizziness, headache; No no complaints, No focal-weakness, No syncope, No seizure, No other Endocrine: dry skin; No no complaints, No polyuria, No polydypsia, No temp intolerance, No other Psychological: anxiety, depression; No no complaints, No nl mood/affect, No suicidal, No other Exam/Review of Systems Exam Vitals Vital Signs Date Temp Pulse Resp B/P (MAP) Pulse Ox O2 O2 Flow FiO2 Time Delivery Rate 09/17/18 88 20:05 09/17/18 97.6 20 102/58 96 Nasal 19:41 (73) Cannula 09/17/18 3.0 17:28 09/15/18 28 16:10 Intake and Output 09/16/18 09/16/18 09/17/18 1515:00 23:00 07:00 IntakeIntake Total 700 ml 1000 ml OutputOutput Total 3 ml BalanceBalance 697 ml 1000 ml Constitutional: alert, oriented, well developed, distress, frail Psych: anxiety, depression; No no complaints, No nl mood/affect, No confusion, No suicidal, No other Head: normocephalic, atraumatic; No lacerations, No hematomas, No other Eyes: EOMI, nl lids, nl sclera, PERRL; No nl conjunctiva, No icteric, No fundi, disc, No other ENMT: tympanic membranes; No nl external ears & nose, No nl lips & teeth, No nl nasal mucosa & septum, No mucosa pink and moist, No intubated, No other Neck: jvd, bruits; No supple, No non-tender, No masses, No thyromegaly, No nuchal rigidity, No other Respiratory: congested cough, crackles/rales, diminished breath sounds, respirations; No clear to auscultation, No normal air movement, No intercostal retraction, No labored breathing, No tactile fremitus, No wheezing, No other Cardiovascular: regular rate and rhythm, nl pulses, bruits, edema (Right lower extremity 1+ left lower extremity trace.), jugular venous distention (JVD), systolic murmur Gastrointestinal: soft, non-tender, bowel sounds, distended; No nl liver, spleen, No ascites, No firm, No hepatomegaly, No mass, No rebound or guarding, No splenomegaly, No surgical scars, No tender, No other Musculoskeletal: nl gait and stance, joint tenderness, muscle tone, muscle weakness Extremities: normal pulses, edema (Right more than left lower extremity but significantly less comparing with yesterday.); No calf tenderness, No cyanosis, No clubbing, No pitting pedal edema, No palpable cord, No tenderness, No other 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: CHILD CUSTODY EVALUATOR 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, confused, lethargic, numbness, reflexes; No nl mental status, No nl speech, No nl strength, No DTR's symmetric, No focal weakness, No unresponsive, No other Skin: nl turgor, ecchymosis; No rash or lesions, No diaphoresis, No laceration, No puncture, No other Lymph: No nl lymph nodes, No enlarged, No nontender, No other Medications Medication Current Medications Acetaminophen (Tylenol Tab) 500 mg Q6H PRN PO MILD PAIN(1-3)OR ELEVATED TEMP Last administered on 09/14/18 14:29; Admin Dose 500 MG; Start 09/09/18 at 22:30 Anastrozole (Arimidex) 1 mg DAILY PO Last administered on 09/17/18 09:11; Admin Dose 1 MG; Start 09/10/18 at 09:00 Carvedilol (Coreg) 3.125 mg BID PO Last administered on 09/16/18 20:40; Admin Dose 3.125 MG; Start 09/09/18 at 22:30 Docusate Sodium (Colace) 200 mg BID PO Last administered on 09/17/18 21:30; Admin Dose 200 MG; Start 09/09/18 at 22:30 Escitalopram Oxalate (Lexapro) 10 mg DAILY PO Last administered on 09/17/18 08:46; Admin Dose 10 MG; Start 09/10/18 at 09:00 Magnesium Hydroxide (Milk Of Mag) 30 ml DAILY PO Last administered on 09/17/18 08:45; Admin Dose 30 ML; Start 09/10/18 at 09:00 Ondansetron HCl (Zofran Tab) 4 mg Q6H PRN PO NAUSEA AND/OR VOMITING Last administered on 09/16/18 09:11; Admin Dose 4 MG; Start 09/09/18 at 22:30 Pantoprazole (Protonix Tab) 40 mg AC BREAKFAST PO Last administered on 09/17/18 08:47; Admin Dose 40 MG; Start 09/10/18 at 07:00 Polyethylene Glycol (Miralax) 17 gm BID PO Last administered on 09/17/18 08:45; Admin Dose 17 GM; Start 09/09/18 at 22:30 Furosemide (Lasix) 40 mg BID DIURETICS IV Last administered on 09/17/18 17:26; Admin Dose 40 MG; Start 09/11/18 at 19:09 Metolazone (Zaroxolyn) 2.5 mg BID PO Last administered on 09/17/18 21:33; Admin Dose 2.5 MG; Start 09/13/18 at 05:30 Spironolactone (Aldactone) 50 mg DAILY PO Last administered on 09/17/18 08:48; Admin Dose 50 MG; Start 09/13/18 at 18:00 Potassium Chloride (Klor-Con 20) 20 meq BID PO Last administered on 09/17/18 21:32; Admin Dose 20 MEQ; Start 09/15/18 at 21:00 Albuterol/ Ipratropium (Duoneb) 3 ml Q8H RESP THERAPY PRN HHN SHORTNESS OF BREATH Last administered on 09/15/18 16:09; Admin Dose 3 ML; Start 09/15/18 at 14:30 Ondansetron HCl (Zofran Inj) 4 mg Q6H PRN IV NAUSEA AND/OR VOMITING Last administered on 09/16/18 05:44; Admin Dose 4 MG; Start 09/15/18 at 14:30 Oxycodone HCl (Oxycontin) 20 mg Q12 PO Last administered on 09/17/18 21:33; Admin Dose 20 MG; Start 09/15/18 at 21:00 Benazepril HCl (Lotensin) 5 mg DAILY PO ; Start 09/17/18 at 09:00 Olopatadine HCl (Patanol 0.1% Oph) 1 drop BID BOTH EYES Last administered on 09/17/18 21:31; Admin Dose 1 DROP; Start 09/16/18 at 21:00 Loratadine (Claritin) 10 mg DAILY PO Last administered on 09/17/18 08:48; Admin Dose 10 MG; Start 09/17/18 at 09:00 RUSS JEROME MD Sep 17, 2018 21:57
--- NOTE | 2018-09-17 22:05 | CONS ---
Assessment/Plan Assessment/Plan Hospital Course (Demo Recall) METASTATIC BREAST CANCER WITH PRIMARY ADENOCARCINOMA IN the left breast. MULTIPLE BONY METS, PULMONARY METS, LIVER METS CHEMO ON HOLD PT HAS A VERY GOOD RESPONSE TO CHEMO AND AI CONT AI FOR NOW CT ABD FOR RESTAGING 3..19- noted , stable CT CHEST- STABLE/IMPROVING 1. Moderate bilateral pleural effusions with adjacent lung base consolidation/atelectasis. 2. Moderate pericardial effusion. 3. Decreased size of previously prominent mediastinal lymph nodes. Decreased size of sub centimeter axillary lymph nodes. 4. Stable nonspecific pulmonary nodules as described above. 5. Stable soft tissue nodule of the anterior left chest wall/breast. 6. Redemonstrated diffuse sclerotic metastatic osseous lesions with stable compression deformities of the thoracic spine. 7. Nodular contour of the liver with multiple hypoattenuating masses, grossly similar to prior exam. WILL OBTAIN CYTOLOGY IN FUTURE POS PERICARDIOCENTESIS- PER CARDIOLOGY CARD - TO MONITOR FOR PERICARDIAL TAMPONADE Leucopenia- post chemo NEUPOGEN- DC monitor closely post Neutropenia with occasional fever and chills. Anemia chronic disease SOB PLEURAL EFFUSIONS thoracentesis Fluid overload diuretic cardiology F-UP Congestive heart failure exacerbation, diastolic by most recent echo, acute on chronic.-neg trop x 3. Echo this admit EF 60/small pericardia effusion Hypotension, currently borderline-overall improved Anasarca. Severe pain in the interscapular and lumbar sacral area most probably metastatic lesion possible femoral fracture. pathologic fracture of T9 with 60% of loss of height. Obesity. Weight loss 60 pounds during the last 2 years PMS. Myopia. Anxiety disorder. Claustrophobia. Posttraumatic stress disorder. Pain in the left forearm with a history of fracture of ulna and radius. Tachycardia Hypoxemia at night marginal improved after 2 L of nasal cannula oxygen. Deconditioning Pain syndrome. Today the most painful zone is in the right hip area. X-ray did not show any fractures. Hyponatremia- resolved Hypoalbuminemia Right sided cp after catheter insertion and correction less discomfort. Decreased edema both lower extremities with hypotension-improving Swelling of the left forearm-persist. Consultation Date/Type/Reason Admit Date/Time Sep 09, 2018 at 14:53 Initial Consult Date 09/09/18 [facility] Provider: RUSS JEROME MD Date/Time of Note DATE: 09/17/18 TIME: 22:04 24 HR Interval Summary Free Text/Dictation all noted sl better Exam/Review of Systems Exam Vitals Vital Signs Date Temp Pulse Resp B/P (MAP) Pulse Ox O2 O2 Flow FiO2 Time Delivery Rate 09/17/18 88 20:05 09/17/18 97.6 20 102/58 96 Nasal 19:41 (73) Cannula 09/17/18 3.0 17:28 09/15/18 28 16:10 Intake and Output 09/16/18 09/16/18 09/17/18 1515:00 23:00 07:00 IntakeIntake Total 700 ml 1000 ml OutputOutput Total 3 ml BalanceBalance 697 ml 1000 ml Exam Constitutional: alert, oriented, well developed, distress, frail Psych: anxiety, depression; No no complaints, No nl mood/affect, No confusion, No suicidal, No other Head: normocephalic, atraumatic Eyes: EOMI, nl lids; No nl conjunctiva, No nl sclera, No PERRL, No icteric, No fundi, disc, No other ENMT: No nl external ears & nose, No nl lips & teeth, No nl nasal mucosa & septum, No mucosa pink and moist, No intubated, No tympanic membranes, No other Neck: supple, jvd, bruits; No non-tender, No masses, No thyromegaly, No nuchal rigidity, No other Respiratory: congested cough, diminished breath sounds (Left more prominent than the right side.); No clear to auscultation, No normal air movement, No crackles/rales, No intercostal retraction, No labored breathing, No respirations, No tactile fremitus, No wheezing, No other Cardiovascular: No regular rate and rhythm, No nl pulses, No bruits, No diastolic murmur, No edema, No gallop, No irregular rhythm, No jugular venous distention (JVD), No murmurs/extra sounds, No rub, No systolic murmur, No S3, No S4, No other Gastrointestinal: soft, nl liver, spleen, distended Extremities: edema (Left upper extremity more prominent in the right.), LE BL Results Result Diagram: 09/16/18 0537 09/16/18 1825 Medications Medication Current Medications Acetaminophen (Tylenol Tab) 500 mg Q6H PRN PO MILD PAIN(1-3)OR ELEVATED TEMP Last administered on 09/14/18 14:29; Admin Dose 500 MG; Start 09/09/18 at 22:30 Anastrozole (Arimidex) 1 mg DAILY PO Last administered on 09/17/18 09:11; Admin Dose 1 MG; Start 09/10/18 at 09:00 Carvedilol (Coreg) 3.125 mg BID PO Last administered on 09/16/18 20:40; Admin Dose 3.125 MG; Start 09/09/18 at 22:30 Docusate Sodium (Colace) 200 mg BID PO Last administered on 09/17/18 21:30; Admin Dose 200 MG; Start 09/09/18 at 22:30 Escitalopram Oxalate (Lexapro) 10 mg DAILY PO Last administered on 09/17/18 08:46; Admin Dose 10 MG; Start 09/10/18 at 09:00 Magnesium Hydroxide (Milk Of Mag) 30 ml DAILY PO Last administered on 09/17/18 08:45; Admin Dose 30 ML; Start 09/10/18 at 09:00 Ondansetron HCl (Zofran Tab) 4 mg Q6H PRN PO NAUSEA AND/OR VOMITING Last admin istered on 09/16/18 09:11; Admin Dose 4 MG; Start 09/09/18 at 22:30 Pantoprazole (Protonix Tab) 40 mg AC BREAKFAST PO Last administered on 09/17/18 08:47; Admin Dose 40 MG; Start 09/10/18 at 07:00 Polyethylene Glycol (Miralax) 17 gm BID PO Last administered on 09/17/18 08:45; Admin Dose 17 GM; Start 09/09/18 at 22:30 Furosemide (Lasix) 40 mg BID DIURETICS IV Last administered on 09/17/18 17:26; Admin Dose 40 MG; Start 09/11/18 at 19:09 Metolazone (Zaroxolyn) 2.5 mg BID PO Last administered on 09/17/18 21:33; Admin Dose 2.5 MG; Start 09/13/18 at 05:30 Spironolactone (Aldactone) 50 mg DAILY PO Last administered on 09/17/18 08:48; Admin Dose 50 MG; Start 09/13/18 at 18:00 Potassium Chloride (Klor-Con 20) 20 meq BID PO Last administered on 09/17/18 21:32; Admin Dose 20 MEQ; Start 09/15/18 at 21:00 Albuterol/ Ipratropium (Duoneb) 3 ml Q8H RESP THERAPY PRN HHN SHORTNESS OF BREATH Last administered on 09/15/18 16:09; Admin Dose 3 ML; Start 09/15/18 at 14:30 Ondansetron HCl (Zofran Inj) 4 mg Q6H PRN IV NAUSEA AND/OR VOMITING Last administered on 09/16/18 05:44; Admin Dose 4 MG; Start 09/15/18 at 14:30 Oxycodone HCl (Oxycontin) 20 mg Q12 PO Last administered on 09/17/18 21:33; A dmin Dose 20 MG; Start 09/15/18 at 21:00 Benazepril HCl (Lotensin) 5 mg DAILY PO ; Start 09/17/18 at 09:00 Olopatadine HCl (Patanol 0.1% Oph) 1 drop BID BOTH EYES Last administered on 09/17/18 21:31; Admin Dose 1 DROP; Start 09/16/18 at 21:00 Loratadine (Claritin) 10 mg DAILY PO Last administered on 09/17/18 08:48; Admin Dose 10 MG; Start 09/17/18 at 09:00 DES DUNAWAY MD Sep 17, 2018 22:04
[2018-09-18] VITALS (11 sets, daily range): BP systolic 92–110; BP diastolic 54–65; PULSE 81–91; RESP 18–22
[2018-09-18] MEDS: FUROSEMIDE 40 MG INJ IV SCH ×2 (05:37→18:00)
[2018-09-18] MEDS: POLYETHYLENE GLYCOL 17 GM PACKET PO SCH ×2 (09:00→20:42)
[2018-09-18] MEDS: SPIRONOLACTONE 50 MG TAB PO SCH (09:05)
[2018-09-18] MEDS: DOCUSATE SODIUM 100 MG CAP PO SCH ×2 (09:05→20:41)
[2018-09-18] MEDS: POTASSIUM CHLORIDE (SR) 20 MEQ TAB PO SCH ×2 (09:06→20:41)
[2018-09-18] MEDS: LORATADINE 10 MG TAB PO SCH (09:06)
[2018-09-18] MEDS: METOLAZONE 2.5 MG TAB PO SCH ×2 (09:07→20:42)
[2018-09-18] MEDS: MAGNESIUM HYDROXIDE 30ML CUP PO SCH (09:07)
[2018-09-18] MEDS: BENAZEPRIL 5 MG TAB PO SCH (09:07)
[2018-09-18] MEDS: ANASTROZOLE 1 MG TAB PO SCH (09:16)
[2018-09-18] MEDS: ESCITALOPRAM 10 MG TAB PO SCH (09:18)
[2018-09-18] MEDS: oxyCODONE (CR) 10 MG TAB [oxyCONTIN] PO SCH ×2 (09:18→20:43)
[2018-09-18] MEDS: OLOPATADINE 0.1% 5 ML OPH BOTH EYES SCH ×2 (09:22→20:40)
--- NOTE | 2018-09-18 09:42 | PN ---
Date/Time of Note Date/Time of Note DATE: 09/18/18 TIME: 09:41 Assessment/Plan VTE Prophylaxis Risk score (from Nsg)>0 risk: 3 SCD applied (from Ns): Yes SCD contraindicated: low risk/ambulating Pharmacological prophylaxis: rivaroxaban Pharm contraindication: low risk/ambulating Lines/Catheters IV [facility] Peripheral IV Central line still needed: No Urinary Cath still in place: No Reason Cath still needed: urinary retention Assessment/Plan Assessment/Plan 1. Cancer of the left breast. Exact type at this time unknown.MULTIPLE BONY METS, PULMONARY METS 2. Severe pain in the interscapular and lumbar sacral area most probably metastatic lesion possible femoral fracture. pathologic fracture of T9 with 60% of loss of height. Neurosurgical f/u. 3. Obesity. 4. Weight loss 60 pounds during the last 2 years by diet 5. PMS. 6. Myopia. 7. Anemia chronic disease with a drop of her hematocrit to 27 and regaining to 30 without any measures. Latest results 28. Protonix was added. Today hematocrit is 26. Will recheck tomorrow 8. Anxiety disorder. Claustrophobia. Increase Ativan to 1 mg every 8 as needed at Lexapro 10 mg daily. 9. Posttraumatic stress disorder. 10. Pain in the left forearm with a history of fracture of ulna and radius. 11. Tachycardia 12. Hypoxemia at night marginal improved after 2 L of nasal cannula oxygen. 13. Deconditioning 14. 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 15. Pain syndrome. Today the most painful zone is in the right hip area. X- ray did not show any fractures. 16. Hyponatremia-persists; hypokalemia after massive diuresis. 17. Leucopenia-improved. 18. Neutropenia with occasional fever and chills. Last chemotherapy 5 days ago. 19. Hypoalbuminemia. 20.Right sided cp after catheter insertion and correction less discomfort. 21. Decreased edema both lower extremities with hypotension-improving 22.Swelling of the left forearm-persist. Now with erythema involving mainly the dorsum of the left upper extremity. 23.bilateral pleural effusions ; plan to perform tap tomorrow morning preferably from the left side again. 24. Systolic over diastolic congestive heart failure with a right more than left lower extremity swelling with no DVT in latest venous Doppler. Result Diagram: 09/16/18 0537 09/16/18 7736 Subjective 24 Hr Interval Summary Free Text/Dictation Weakness shortness of breath worsening of the pain in the chest and lumbosacral area mainly in the right hip area difficulty to get up but patient is making effort and overcoming the pain. Able to walk longer distance. Constitutional: poor po, requiring O2; No no complaints, No improved, No chills, No diaphoresis, No disoriented, No febrile, No requiring IVF, No other Eyes: No no complaints, No pain, No discharge, No redness, No visual change, No other ENT: pain, congestion, discharge, sore throat; No no complaints, No bleeding, No dysphagia, No other Respiratory: cough, pleuritic pain, shortness of breath; No no complaints, No pain, No sputum, No wheezing, No other Cardiovascular: edema, lightheadedness, orthopenea, palpitations; No no complaints, No chest pain, No paroxysmal nocturnal dyspnea, No other Gastrointestinal: constipation, vomiting; No no complaints, No pain, No blood, No decreased appetite, No diarrhea, No flatus, No nausea, No passing stool, No other Genitourinary: dysuria, flank pain; No no complaints, No bleeding, No discharge, No hematuria, No other Musculoskeletal: back pain, bone/joint pain, neck pain; No no complaints, No restricted range of motion, No swelling, No other Skin: erythema, pruritis, skin lesions; No no complaints, No bruising, No laceration, No rash, No other Neurologic: dizziness, headache, syncope; No no complaints, No confusion, No focal-weakness, No seizure, No other Endocrine: dry skin; No no complaints, No polyuria, No polydypsia, No temp intolerance, No other Lymphatic: No no complaints, No adenopathy, No tender nodes, No lymphadema, No other Psychological: anxiety, confusion, depression; No no complaints, No nl mood/affect, No suicidal, No other Exam/Review of Systems Exam Vitals Vital Signs Date Temp Pulse Resp B/P (MAP) Pulse Ox O2 O2 Flow FiO2 Time Delivery Rate 09/18/18 89 08:07 09/18/18 98.2 18 110/55 94 Nasal 07:31 (73) Cannula 09/18/18 2.0 02:54 09/15/18 28 16:10 Intake and Output 09/17/18 09/17/18 09/18/18 1515:00 23:00 07:00 IntakeIntake Total 350 ml 350 ml BalanceBalance 350 ml 350 ml Constitutional: alert, oriented, well developed, distress, frail, obese Psych: anxiety, depression; No no complaints, No nl mood/affect, No confusion, No suicidal, No other Head: normocephalic, atraumatic; No lacerations, No hematomas, No other Eyes: EOMI, nl lids, PERRL, other (Positive for periorbital erythema with itching bilaterally less intense than last 2 days.); No nl conjunctiva, No nl sclera, No icteric, No fundi, disc ENMT: No nl external ears & nose, No nl lips & teeth, No nl nasal mucosa & septum, No mucosa pink and moist, No intubated, No tympanic membranes, No other Neck: jvd, bruits, thyromegaly, nuchal rigidity; No supple, No non-tender, No masses, No other Respiratory: congested cough, crackles/rales, diminished breath sounds (Left more than the right side.); No clear to auscultation, No normal air movement, No intercostal retraction, No labored breathing, No respirations, No tactile fremitus, No wheezing, No other Cardiovascular: regular rate and rhythm, nl pulses, bruits, systolic murmur; No diastolic murmur, No edema, No gallop, No irregular rhythm, No jugular venous distention (JVD), No murmurs/extra sounds, No rub, No S3, No S4, No other Gastrointestinal: soft, nl liver, spleen, bowel sounds, distended, surgical scars; No non-tender, No ascites, No firm, No hepatomegaly, No mass, No rebound or guarding, No splenomegaly, No tender, No other Musculoskeletal: joint tenderness, muscle tone, muscle weakness; No nl extremities to inspection, No nl gait and stance, No range of motion, No spine non-tender, No swelling, No other Extremities: normal pulses, edema (Right lower extremity no edema or left lower extremity.); No calf tenderness, No cyanosis, No clubbing, No pitting pedal edema, No palpable cord, No tenderness, No other 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: REGISTER IN CHANCERY 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, confused (On and off when pain is severe and after taking a pain medication.), focal weakness, numbness; No nl mental status, No nl speech, No nl strength, No DTR's symmetric, No lethargic, No reflexes, No unresponsive, No other Medications Medication Current Medications Acetaminophen (Tylenol Tab) 500 mg Q6H PRN PO MILD PAIN(1-3)OR ELEVATED TEMP Last administered on 09/14/18 14:29; Admin Dose 500 MG; Start 09/09/18 at 22:30 Anastrozole (Arimidex) 1 mg DAILY PO Last administered on 09/18/18 09:16; Admin Dose 1 MG; Start 09/10/18 at 09:00 Carvedilol (Coreg) 3.125 mg BID PO Last administered on 09/18/18 09:06; Admin Dose 3.125 MG; Start 09/09/18 at 22:30 Docusate Sodium (Colace) 200 mg BID PO Last administered on 09/18/18 09:05; Admin Dose 200 MG; Start 09/09/18 at 22:30 Escitalopram Oxalate (Lexapro) 10 mg DAILY PO Last administered on 09/18/18 09:18; Admin Dose 10 MG; Start 09/10/18 at 09:00 Magnesium Hydroxide (Milk Of Mag) 30 ml DAILY PO Last administered on 09/18/18 09:07; Admin Dose 30 ML; Start 09/10/18 at 09:00 Ondansetron HCl (Zofran Tab) 4 mg Q6H PRN PO NAUSEA AND/OR VOMITING Last administered on 09/16/18 09:11; Admin Dose 4 MG; Start 09/09/18 at 22:30 Pantoprazole (Protonix Tab) 40 mg AC BREAKFAST PO Last administered on 09/17/18 08:47; Admin Dose 40 MG; Start 09/10/18 at 07:00 Polyethylene Glycol (Miralax) 17 gm BID PO Last administered on 09/17/18 08:45; Admin Dose 17 GM; Start 09/09/18 at 22:30 Furosemide (Lasix) 40 mg BID DIURETICS IV Last administered on 09/18/18 05:37; Admin Dose 40 MG; Start 09/11/18 at 19:09 Metolazone (Zaroxolyn) 2.5 mg BID PO Last administered on 09/18/18 09:07; Admin Dose 2.5 MG; Start 09/13/18 at 05:30 Spironolactone (Aldactone) 50 mg DAILY PO Last administered on 09/18/18 09:05; Admin Dose 50 MG; Start 09/13/18 at 18:00 Potassium Chloride (Klor-Con 20) 20 meq BID PO Last administered on 09/18/18 09:06; Admin Dose 20 MEQ; Start 09/15/18 at 21:00 Albuterol/ Ipratropium (Duoneb) 3 ml Q8H RESP THERAPY PRN HHN SHORTNESS OF BREATH Last administered on 09/15/18 16:09; Admin Dose 3 ML; Start 09/15/18 at 14:30 Ondansetron HCl (Zofran Inj) 4 mg Q6H PRN IV NAUSEA AND/OR VOMITING Last administered on 09/16/18 05:44; Admin Dose 4 MG; Start 09/15/18 at 14:30 Oxycodone HCl (Oxycontin) 20 mg Q12 PO Last administered on 09/18/18 09:18; Admin Dose 20 MG; Start 09/15/18 at 21:00 Benazepril HCl (Lotensin) 5 mg DAILY PO Last administered on 09/18/18 09:07; Admin Dose 5 MG; Start 09/17/18 at 09:00 Olopatadine HCl (Patanol 0.1% Oph) 1 drop BID BOTH EYES Last administered on 09/17/18 21:31; Admin Dose 1 DROP; Start 09/16/18 at 21:00 Loratadine (Claritin) 10 mg DAILY PO Last administered on 09/18/18 09:06; Admin Dose 10 MG; Start 09/17/18 at 09:00 RUSS JEROME MD Sep 18, 2018 09:42
[2018-09-18] MEDS ORDERED: LIDOCAINE 1% (MPF) 5 ML VIAL ONE (11:21)
--- NOTE | 2018-09-18 15:38 | CONS ---
Assessment/Plan Assessment/Plan Hospital Course (Demo Recall) IMPRESSION: 1. Congestive heart failure exacerbation, diastolic by most recent echo, acute on chronic.-neg trop x 3. Echo this admit EF 60/small pericardia effusion 2. Hypotension, currently low 3. Anasarca. 4. Metastatic breast carcinoma. 5. Leukopenia. 6. Thrombocytopenia.-ongoing 7. Pericardial effusion-small by echo with no HD consequence at this time Recc: -On med-surg -Continue Lasix diuresis as tolerated at increased dose plus metolazone for synergy and now aldactone -S/p IV albumin infusion x 3 -Will further decrease doses of antihypertensives and give dose of albumin now given low BP -Continue arimidex -coreg as tolerated only and will likely d/c benazepril given marginal BP and being held Consultation Date/Type/Reason Admit Date/Time Sep 09, 2018 at 14:53 Initial Consult Date 09/09/18 Type of Consult Cardiology Reason for Consultation CHF Requesting Provider: RUSS JEROME MD Date/Time of Note DATE: 09/18/18 TIME: 15:33 Exam/Review of Systems Vital Signs Vitals Vital Signs Date Temp Pulse Resp B/P (MAP) Pulse Ox O2 O2 Flow FiO2 Time Delivery Rate 09/18/18 98.3 83 20 96/54 (68) 94 Nasal 15:16 Cannula 09/18/18 2.0 14:10 09/15/18 28 16:10 Intake and Output 09/17/18 09/17/18 09/18/18 1414:59 22:59 06:59 IntakeIntake Total 350 ml 350 ml BalanceBalance 350 ml 350 ml Exam Exam Review of Systems: CONSTITUTIONAL: No fevers, chills. PULMONARY: No sob CARDIOVASCULAR: No chest pain/palpitations GASTROINTESTINAL: No nausea/vomiting. GENITOURINARY: No hematuria/dysuria. MUSCULOSKELETAL: No myagias/arthalgias. PSYCHIATRIC: The patient denies depression. NEUROLOGIC: mild generalized weakness Constitutional: alert Psych: no complaints Head: normocephalic ENMT: mucosa pink and moist Neck: supple, jvd (9 cm water) Respiratory: diminished breath sounds (at bases/B) Cardiovascular: regular rate and rhythm Gastrointestinal: soft, ascites Musculoskeletal: muscle tone (normal) Extremities: other (No focal deficits) 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: other (No focal deficits) Labs Result Diagram: 09/16/18 0537 09/16/18 1825 Medications Medications Current Medications Acetaminophen (Tylenol Tab) 500 mg Q6H PRN PO MILD PAIN(1-3)OR ELEVATED TEMP Last administered on 09/14/18 14:29; Admin Dose 500 MG; Start 09/09/18 at 22:30 Anastrozole (Arimidex) 1 mg DAILY PO Last administered on 09/18/18 09:16; Admin Dose 1 MG; Start 09/10/18 at 09:00 Carvedilol (Coreg) 3.125 mg BID PO Last administered on 09/18/18 09:06; Admin Dose 3.125 MG; Start 09/09/18 at 22:30 Docusate Sodium (Colace) 200 mg BID PO Last administered on 09/18/18 09:05; Admin Dose 200 MG; Start 09/09/18 at 22:30 Escitalopram Oxalate (Lexapro) 10 mg DAILY PO Last administered on 09/18/18 09:18; Admin Dose 10 MG; Start 09/10/18 at 09:00 Magnesium Hydroxide (Milk Of Mag) 30 ml DAILY PO Last administered on 09/18/18 09:07; Admin Dose 30 ML; Start 09/10/18 at 09:00 Ondansetron HCl (Zofran Tab) 4 mg Q6H PRN PO NAUSEA AND/OR VOMITING Last administered on 09/16/18 09:11; Admin Dose 4 MG; Start 09/09/18 at 22:30 Pantoprazole (Protonix Tab) 40 mg AC BREAKFAST PO Last administered on 09/17/18 08:47; Admin Dose 40 MG; Start 09/10/18 at 07:00 Polyethylene Glycol (Miralax) 17 gm BID PO Last administered on 09/17/18 08:45; Admin Dose 17 GM; Start 09/09/18 at 22:30 Furosemide (Lasix) 40 mg BID DIURETICS IV Last administered on 09/18/18 05:37; Admin Dose 40 MG; Start 09/11/18 at 19:09 Metolazone (Zaroxolyn) 2.5 mg BID PO Last administered on 09/18/18 09:07; Admin Dose 2.5 MG; Start 09/13/18 at 05:30 Spironolactone (Aldactone) 50 mg DAILY PO Last administered on 09/18/18 09:05; Admin Dose 50 MG; Start 09/13/18 at 18:00 Potassium Chloride (Klor-Con 20) 20 meq BID PO Last administered on 09/18/18 09:06; Admin Dose 20 MEQ; Start 09/15/18 at 21:00 Albuterol/ Ipratropium (Duoneb) 3 ml Q8H RESP THERAPY PRN HHN SHORTNESS OF BREATH Last administered on 09/15/18 16:09; Admin Dose 3 ML; Start 09/15/18 at 14:30 Ondansetron HCl (Zofran Inj) 4 mg Q6H PRN IV NAUSEA AND/OR VOMITING Last administered on 09/16/18 05:44; Admin Dose 4 MG; Start 09/15/18 at 14:30 Oxycodone HCl (Oxycontin) 20 mg Q12 PO Last administered on 09/18/18 09:18; Admin Dose 20 MG; Start 09/15/18 at 21:00 Benazepril HCl (Lotensin) 5 mg DAILY PO Last administered on 09/18/18 09:07; Admin Dose 5 MG; Start 09/17/18 at 09:00 Olopatadine HCl (Patanol 0.1% Oph) 1 drop BID BOTH EYES Last administered on 09/18/18 09:22; Admin Dose 1 DROP; Start 09/16/18 at 21:00 Loratadine (Claritin) 10 mg DAILY PO Last administered on 09/18/18 09:06; Admin Dose 10 MG; Start 09/17/18 at 09:00 KAMILA TERESA Sep 18, 2018 15:37
--- NOTE | 2018-09-18 20:37 | PDOCDIS ---
Discharge Instructions DIAGNOSIS Discharge Diagnosis 1. Cancer of the left breast. Exact type at this time unknown.MULTIPLE BONY METS, PULMONARY METS 2. Severe pain in the interscapular and lumbar sacral area most probably metastatic lesion possible femoral fracture. pathologic fracture of T9 with 60% of loss of height. Neurosurgical f/u. 3. Obesity. 4. Weight loss 60 pounds during the last 2 years by diet 5. PMS. 6. Myopia. 7. Anemia chronic disease with a drop of her hematocrit to 27 and regaining to 30 without any measures. Latest results 28. Protonix was added. Today hem atocrit is 26. Will recheck tomorrow 8. Anxiety disorder. Claustrophobia. Increase Ativan to 1 mg every 8 as needed at Lexapro 10 mg daily. 9. Posttraumatic stress disorder. 10. Pain in the left forearm with a history of fracture of ulna and radius. 11. Tachycardia 12. Hypoxemia at night marginal improved after 2 L of nasal cannula oxygen. 13. Deconditioning 14. 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 15. Pain syndrome. Today the most painful zone is in the right hip area. X- ray did not show any fractures. 16. Hyponatremia-persists; hypokalemia after massive diuresis. 17. Leucopenia-improved. 18. Neutropenia with occasional fever and chills. Last chemotherapy 5 days ago. 19. Hypoalbuminemia. 20.Right sided cp after catheter insertion and correction less discomfort. 21. Decreased edema both lower extremities with hypotension-improving 22.Swelling of the left forearm-persist. Now with erythema involving mainly the dorsum of the left upper extremity. 23.bilateral pleural effusions ; plan to perform tap tomorrow morning preferably from the left side done twice during this admission almost 1 L was evacuated to the first time and almost half a liter on 09/18/2018. 24. Systolic over diastolic congestive heart failure with a right more than left lower extremity swelling with no DVT in latest venous Doppler. 25. Pain syndrome CONDITION [id number] Patient Condition: [id number] Guarded HOME CARE INSTRUCTIONS: [id number] Diet Instructions: [id number] Reduced Calorie ACTIVITY: [id number] Activity Restrictions: [id number] Slowly Increase Activity [id number] Bathing Restrictions: [id number] Shower FOLLOW UP/APPOINTMENTS Follow-up Plan To be seen in the half-way facility in 3 days by primary care physician in 1 week by oncology DrAnuj SCHOOL/WORK RELEASE May return to School/Work with: . RUSS JEROME MD Sep 18, 2018 20:37
[2018-09-19] VITALS (9 sets, daily range): BP systolic 101–121; BP diastolic 56–76; PULSE 86–104; RESP 16–18
--- NOTE | 2018-09-19 00:08 | CONS ---
Assessment/Plan Assessment/Plan Hospital Course (Demo Recall) METASTATIC BREAST CANCER WITH PRIMARY ADENOCARCINOMA IN the left breast. MULTIPLE BONY METS, PULMONARY METS, LIVER METS CHEMO ON HOLD PT HAS A VERY GOOD RESPONSE TO CHEMO AND AI CONT AI FOR NOW CT ABD FOR RESTAGING 3.06.05- noted , stable CT CHEST- STABLE/IMPROVING 1. Moderate bilateral pleural effusions with adjacent lung base consolidation/atelectasis. 2. Moderate pericardial effusion. 3. Decreased size of previously prominent mediastinal lymph nodes. Decreased size of sub centimeter axillary lymph nodes. 4. Stable nonspecific pulmonary nodules as described above. 5. Stable soft tissue nodule of the anterior left chest wall/breast. 6. Redemonstrated diffuse sclerotic metastatic osseous lesions with stable compression deformities of the thoracic spine. 7. Nodular contour of the liver with multiple hypoattenuating masses, grossly similar to prior exam. WILL OBTAIN CYTOLOGY POS PERICARDIOCENTESIS- PER CARDIOLOGY CARD - TO MONITOR FOR PERICARDIAL TAMPONADE Leucopenia- post chemo NEUPOGEN- DC monitor closely post Neutropenia with occasional fever and chills. Anemia chronic disease SOB PLEURAL EFFUSIONS thoracentesis Fluid overload diuretic cardiology F-UP Congestive heart failure exacerbation, diastolic by most recent echo, acute on chronic.-neg trop x 3. Echo this admit EF 60/small pericardia effusion Hypotension, currently borderline-overall improved Anasarca. Severe pain in the interscapular and lumbar sacral area most probably metastatic lesion possible femoral fracture. pathologic fracture of T9 with 60% of loss of height. Obesity. Weight loss 60 pounds during the last 2 years PMS. Myopia. Anxiety disorder. Claustrophobia. Posttraumatic stress disorder. Pain in the left forearm with a history of fracture of ulna and radius. Tachycardia Hypoxemia at night marginal improved after 2 L of nasal cannula oxygen. Deconditioning Pain syndrome. Today the most painful zone is in the right hip area. X-ray did not show any fractures. Hyponatremia- resolved Hypoalbuminemia Right sided cp after catheter insertion and correction less disco mfort. Decreased edema both lower extremities with hypotension-improving Swelling of the left forearm-persist. vk le 4.09.03 Consultation Date/Type/Reason Admit Date/Time Sep 09, 2018 at 14:53 Initial Consult Date 09/09/18 Type of Consult [facility] [place] Requesting Provider: RUSS JEROME MD Date/Time of Note DATE: 09/19/18 TIME: 00:08 24 HR Interval Summary Free Text/Dictation ALL NOTED NO NEW EVENTS Exam/Review of Systems Exam Vitals Vital Signs Date Temp Pulse Resp B/P (MAP) Pulse Ox O2 O2 Flow FiO2 Time Delivery Rate 09/18/18 98.4 86 18 106/57 95 23:48 (73) 09/18/18 Nasal 2.0 21:34 Cannula 09/15/18 28 16:10 Intake and Output 09/18/18 09/18/18 09/19/18 1414:59 22:59 06:59 IntakeIntake Total 800 ml BalanceBalance 800 ml Exam Constitutional: alert, oriented, well developed, distress, frail Psych: anxiety, depression; No no complaints, No nl mood/affect, No confusion, No suicidal, No other Head: normocephalic, atraumatic Eyes: EOMI, nl lids; No nl conjunctiva, No nl sclera, No PERRL, No icteric, No fundi, disc, No other ENMT: No nl external ears & nose, No nl lips & teeth, No nl nasal mucosa & septum, No mucosa pink and moist, No intubated, No tympanic membranes, No other Neck: supple, jvd, bruits; No non-tender, No masses, No thyromegaly, No nuchal rigidity, No other Respiratory: congested cough, diminished breath sounds (Left more prominent than the right side.); No clear to auscultation, No normal air movement, No crackles/rales, No intercostal retraction, No labored breathing, No respirations, No tactile fremitus, No wheezing, No other Cardiovascular: No regular rate and rhythm, No nl pulses, No bruits, No diastolic murmur, No edema, No gallop, No irregular rhythm, No jugular venous distention (JVD), No murmurs/extra sounds, No rub, No systolic murmur, No S3, No S4, No other Gastrointestinal: soft, nl liver, spleen, distended Extremities: edema (Left upper extremity more prominent in the right.), LE BL Results Result Diagram: 09/16/18 0537 09/16/18 1825 Medications Medication Current Medications Acetaminophen (Tylenol Tab) 500 mg Q6H PRN PO MILD PAIN(1-3)OR ELEVATED TEMP Last administered on 09/14/18 14:29; Admin Dose 500 MG; Start 09/09/18 at 22:30 Anastrozole (Arimidex) 1 mg DAILY PO Last administered on 09/18/18 09:16; Admin Dose 1 MG; Start 09/10/18 at 09:00 Carvedilol (Coreg) 3.125 mg BID PO Last administered on 09/18/18 09:06; Admin Dose 3.125 MG; Start 09/09/18 at 22:30 Docusate Sodium (Colace) 200 mg BID PO Last administered on 09/18/18 20:41; Admin Dose 200 MG; Start 09/09/18 at 22:30 Escitalopram Oxalate (Lexapro) 10 mg DAILY PO Last administered on 09/18/18 09:18; Admin Dose 10 MG; Start 09/10/18 at 09:00 Magnesium Hydroxide (Milk Of Mag) 30 ml DAILY PO Last administered on 09/18/18 09:07; Admin Dose 30 ML; Start 09/10/18 at 09:00 Ondansetron HCl (Zofran Tab) 4 mg Q6H PRN PO NAUSEA AND/OR VOMITING Last administered on 09/16/18 09:11; Admin Dose 4 MG; Start 09/09/18 at 22:30 Pantoprazole (Protonix Tab) 40 mg AC BREAKFAST PO Last administered on 09/17/18 08:47; Admin Dose 40 MG; Start 09/10/18 at 07:00 Polyethylene Glycol (Miralax) 17 gm BID PO Last administered on 09/17/18 08:45; Admin Dose 17 GM; Start 09/09/18 at 22:30 Furosemide (Lasix) 40 mg BID DIURETICS IV Last administered on 09/18/18 05:37; Admin Dose 40 MG; Start 09/11/18 at 19:09 Metolazone (Zaroxolyn) 2.5 mg BID PO Last administered on 09/18/18 09:07; Admin Dose 2.5 MG; Start 09/13/18 at 05:30 Spironolactone (Aldactone) 50 mg DAILY PO Last administered on 09/18/18 09:05; Admin Dose 50 MG; Start 09/13/18 at 18:00 Potassium Chloride (Klor-Con 20) 20 meq BID PO Last administered on 09/18/18 20:41; Admin Dose 20 MEQ; Start 09/15/18 at 21:00 Albuterol/ Ipratropium (Duoneb) 3 ml Q8H RESP THERAPY PRN HHN SHORTNESS OF BREATH Last administered on 09/15/18 16:09; Admin Dose 3 ML; Start 09/15/18 at 14:30 Ondansetron HCl (Zofran Inj) 4 mg Q6H PRN IV NAUSEA AND/OR VOMITING Last administered on 09/16/18 05:44; Admin Dose 4 MG; Start 09/15/18 at 14:30 Oxycodone HCl (Oxycontin) 20 mg Q12 PO Last administered on 09/18/18 20:43; Admin Dose 20 MG; Start 09/15/18 at 21:00 Benazepril HCl (Lotensin) 5 mg DAILY PO Last administered on 09/18/18 09:07; Admin Dose 5 MG; Start 09/17/18 at 09:00 Olopatadine HCl (Patanol 0.1% Oph) 1 drop BID BOTH EYES Last administered on 09/18/18 20:40; Admin Dose 1 DROP; Start 09/16/18 at 21:00 Loratadine (Claritin) 10 mg DAILY PO Last administered on 09/18/18 09:06; Admin Dose 10 MG; Start 09/17/18 at 09:00 DES DUNAWAY MD Sep 19, 2018 00:08
[2018-09-19] MEDS: FUROSEMIDE 40 MG INJ IV SCH ×2 (05:30→17:45)
[2018-09-19] MEDS: ESCITALOPRAM 10 MG TAB PO SCH (08:44)
[2018-09-19] MEDS: POLYETHYLENE GLYCOL 17 GM PACKET PO SCH ×2 (08:44→21:00)
[2018-09-19] MEDS: MAGNESIUM HYDROXIDE 30ML CUP PO SCH (08:44)
[2018-09-19] MEDS: LORATADINE 10 MG TAB PO SCH (08:45)
[2018-09-19] MEDS: DOCUSATE SODIUM 100 MG CAP PO SCH ×2 (08:45→20:33)
[2018-09-19] MEDS: POTASSIUM CHLORIDE (SR) 20 MEQ TAB PO SCH ×2 (08:45→20:34)
[2018-09-19] MEDS: PANTOPRAZOLE (EC) 40 MG TAB PO SCH (08:45)
[2018-09-19] MEDS: ANASTROZOLE 1 MG TAB PO SCH (08:48)
[2018-09-19] MEDS: oxyCODONE (CR) 10 MG TAB [oxyCONTIN] PO SCH ×2 (08:49→20:40)
[2018-09-19] MEDS: METOLAZONE 2.5 MG TAB PO SCH ×2 (08:50→20:37)
[2018-09-19] MEDS: SPIRONOLACTONE 50 MG TAB PO SCH (08:52)
[2018-09-19] MEDS: BENAZEPRIL 5 MG TAB PO SCH (08:52)
[2018-09-19] MEDS: OLOPATADINE 0.1% 5 ML OPH BOTH EYES SCH ×2 (09:07→20:38)
--- NOTE | 2018-09-19 18:00 | CONS ---
Assessment/Plan Assessment/Plan Hospital Course (Demo Recall) IMPRESSION: 1. Congestive heart failure exacerbation, diastolic by most recent echo, acute on chronic.-neg trop x 3. Echo this admit EF 60/small pericardia effusion 2. Hypotension, currently low 3. Anasarca. 4. Metastatic breast carcinoma. 5. Leukopenia. 6. Thrombocytopenia.-ongoing 7. Pericardial effusion-small by echo with no HD consequence at this time Recc: -On med-surg -Continue Lasix diuresis as tolerated at increased dose plus metolazone for synergy and now aldactone -S/p IV albumin infusion x 3 -Will further decrease doses of antihypertensives now given low BP -Continue arimidex -coreg as tolerated only and will likely d/c benazepril given marginal BP and being held Consultation Date/Type/Reason Admit Date/Time Sep 09, 2018 at 14:53 Initial Consult Date 09/09/18 Type of Consult Cardiology Reason for Consultation CHF Requesting Provider: RUSS JEROME MD Date/Time of Note DATE: 09/19/18 TIME: 17:56 Exam/Review of Systems Vital Signs Vitals Vital Signs Date Temp Pulse Resp B/P (MAP) Pulse Ox O2 O2 Flow FiO2 Time Delivery Rate 09/19/18 Nasal 2.0 16:38 Cannula 09/19/18 97.9 95 18 121/76 91 16:34 (91) 09/15/18 28 16:10 Intake and Output 09/18/18 09/18/18 09/19/18 1414:59 22:59 06:59 IntakeIntake Total 800 ml 400 ml BalanceBalance 800 ml 400 ml Exam Exam Review of Systems: CONSTITUTIONAL: No fevers, chills. PULMONARY: No sob CARDIOVASCULAR: No chest pain/palpitations GASTROINTESTINAL: No nausea/vomiting. GENITOURINARY: No hematuria/dysuria. MUSCULOSKELETAL: No myagias/arthalgias. PSYCHIATRIC: The patient denies depression. NEUROLOGIC: No weakness Constitutional: alert, oriented Psych: no complaints Head: normocephalic ENMT: mucosa pink and moist Neck: supple, jvd (9 cm water) Respiratory: diminished breath sounds Cardiovascular: regular rate and rhythm Gastrointestinal: soft, non-tender Musculoskeletal: muscle tone (normal) Extremities: edema (trace/B) 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: other (No focal deficits) Labs Result Diagram: 09/16/18 0537 09/16/18 1825 Medications Medications Current Medications Acetaminophen (Tylenol Tab) 500 mg Q6H PRN PO MILD PAIN(1-3)OR ELEVATED TEMP Last administered on 09/14/18 14:29; Admin Dose 500 MG; Start 09/09/18 at 22:30 Anastrozole (Arimidex) 1 mg DAILY PO Last administered on 09/19/18 08:48; Admin Dose 1 MG; Start 09/10/18 at 09:00 Carvedilol (Coreg) 3.125 mg BID PO Last administered on 09/18/18 09:06; Admin Dose 3.125 MG; Start 09/09/18 at 22:30 Docusate Sodium (Colace) 200 mg BID PO Last administered on 09/19/18 08:45; Admin Dose 200 MG; Start 09/09/18 at 22:30 Escitalopram Oxalate (Lexapro) 10 mg DAILY PO Last administered on 09/19/18 08:44; Admin Dose 10 MG; Start 09/10/18 at 09:00 Magnesium Hydroxide (Milk Of Mag) 30 ml DAILY PO Last administered on 09/19/18 08:44; Admin Dose 30 ML; Start 09/10/18 at 09:00 Ondansetron HCl (Zofran Tab) 4 mg Q6H PRN PO NAUSEA AND/OR VOMITING Last administered on 09/16/18 09:11; Admin Dose 4 MG; Start 09/09/18 at 22:30 Pantoprazole (Protonix Tab) 40 mg AC BREAKFAST PO Last administered on 09/19/18 08:45; Admin Dose 40 MG; Start 09/10/18 at 07:00 Polyethylene Glycol (Miralax) 17 gm BID PO Last administered on 09/17/18 08:45; Admin Dose 17 GM; Start 09/09/18 at 22:30 Furosemide (Lasix) 40 mg BID DIURETICS IV Last administered on 09/19/18 17:45; Admin Dose 40 MG; Start 09/11/18 at 19:09 Metolazone (Zaroxolyn) 2.5 mg BID PO Last administered on 09/18/18 09:07; Admin Dose 2.5 MG; Start 09/13/18 at 05:30 Spironolactone (Aldactone) 50 mg DAILY PO Last administered on 09/18/18 09:05; Admin Dose 50 MG; Start 09/13/18 at 18:00 Potassium Chloride (Klor-Con 20) 20 meq BID PO Last administered on 09/19/18 08:45; Admin Dose 20 MEQ; Start 09/15/18 at 21:00 Albuterol/ Ipratropium (Duoneb) 3 ml Q8H RESP THERAPY PRN HHN SHORTNESS OF BREATH Last administered on 09/15/18 16:09; Admin Dose 3 ML; Start 09/15/18 at 14:30 Ondansetron HCl (Zofran Inj) 4 mg Q6H PRN IV NAUSEA AND/OR VOMITING Last administered on 09/16/18 05:44; Admin Dose 4 MG; Start 09/15/18 at 14:30 Oxycodone HCl (Oxycontin) 20 mg Q12 PO Last administered on 09/19/18 08:49; Admin Dose 20 MG; Start 09/15/18 at 21:00 Benazepril HCl (Lotensin) 5 mg DAILY PO Last administered on 09/18/18 09:07; Admin Dose 5 MG; Start 09/17/18 at 09:00 Olopatadine HCl (Patanol 0.1% Oph) 1 drop BID BOTH EYES Last administered on 09/19/18 09:07; Admin Dose 1 DROP; Start 09/16/18 at 21:00 Loratadine (Claritin) 10 mg DAILY PO Last administered on 09/19/18 08:45; Admin Dose 10 MG; Start 09/17/18 at 09:00 KAMILA TERESA Sep 19, 2018 18:00
--- NOTE | 2018-09-19 22:57 | CONS ---
Assessment/Plan Assessment/Plan Hospital Course (Demo Recall) METASTATIC BREAST CANCER WITH PRIMARY ADENOCARCINOMA IN the left breast. MULTIPLE BONY METS, PULMONARY METS, LIVER METS CHEMO ON HOLD PT HAS A VERY GOOD RESPONSE TO CHEMO AND AI CONT AI FOR NOW CT ABD FOR RESTAGING 3.06.05- noted , stable CT CHEST- STABLE/IMPROVING 1. Moderate bilateral pleural effusions with adjacent lung base consolidation/atelectasis. 2. Moderate pericardial effusion. 3. Decreased size of previously prominent mediastinal lymph nodes. Decreased size of sub centimeter axillary lymph nodes. 4. Stable nonspecific pulmonary nodules as described above. 5. Stable soft tissue nodule of the anterior left chest wall/breast. 6. Redemonstrated diffuse sclerotic metastatic osseous lesions with stable compression deformities of the thoracic spine. 7. Nodular contour of the liver with multiple hypoattenuating masses, grossly similar to prior exam. CYTOLOGY-P CARD - TO MONITOR FOR PERICARDIAL TAMPONADE Leucopenia- post chemo NEUPOGEN- DC monitor closely post Neutropenia with occasional fever and chills. Anemia chronic disease SOB PLEURAL EFFUSIONS thoracentesis Fluid overload diuretic cardiology F-UP Congestive heart failure exacerbation, diastolic by most recent echo, acute on chronic.-neg trop x 3. Echo this admit EF 60/small pericardia effusion Hypotension, currently borderline-overall improved Anasarca. Severe pain in the interscapular and lumbar sacral area most probably metastatic lesion possible femoral fracture. pathologic fracture of T9 with 60% of loss of height. Obesity. Weight loss 60 pounds during the last 2 years PMS. Myopia. Anxiety disorder. Claustrophobia. Posttraumatic stress disorder. Pain in the left forearm with a history of fracture of ulna and radius. Tachycardia Hypoxemia at night marginal improved after 2 L of nasal cannula oxygen. Deconditioning Pain syndrome. Today the most painful zone is in the right hip area. X-ray did not show any fractures. Hyponatremia- resolved Hypoalbuminemia Right sided cp after catheter insertion and correction less discomfort. Decreased edema both lower extremities with hypotension-improving Swelling of the left forearm-persist. vk le 4.. Consultation Date/Type/Reason Admit Date/Time Sep 09, 2018 at 14:53 Initial Consult Date 09/09/18 Type of Consult [facility] Requesting Provider: RUSS JEROME MD Date/Time of Note DATE: 09/19/18 TIME: 22:55 24 HR Interval Summary Free Text/Dictation ALL NOTED CYTOLOGY- P Exam/Review of Systems Exam Vitals Vital Signs Date Temp Pulse Resp B/P (MAP) Pulse Ox O2 O2 Flow FiO2 Time Delivery Rate 09/19/18 98.3 104 18 102/74 91 20:25 (83) 09/19/18 Nasal 2.0 16:38 Cannula 09/15/18 28 16:10 Intake and Output 09/18/18 09/18/18 09/19/18 1515:00 23:00 07:00 IntakeIntake Total 800 ml 400 ml BalanceBalance 800 ml 400 ml Exam Constitutional: alert, oriented, well developed, distress, frail Psych: anxiety, depression; No no complaints, No nl mood/affect, No confusion, No suicidal, No other Head: normocephalic, atraumatic Eyes: EOMI, nl lids; No nl conjunctiva, No nl sclera, No PERRL, No icteric, No fundi, disc, No other ENMT: No nl external ears & nose, No nl lips & teeth, No nl nasal mucosa & septum, No mucosa pink and moist, No intubated, No tympanic membranes, No other Neck: supple, jvd, bruits; No non-tender, No masses, No thyromegaly, No nuchal rigidity, No other Respiratory: congested cough, diminished breath sounds (Left more prominent than the right side.); No clear to auscultation, No normal air movement, No crackles/rales, No intercostal retraction, No labored breathing, No respirations, No tactile fremitus, No wheezing, No other Cardiovascular: No regular rate and rhythm, No nl pulses, No bruits, No diastolic murmur, No edema, No gallop, No irregular rhythm, No jugular venous distention (JVD), No murmurs/extra sounds, No rub, No systolic murmur, No S3, No S4, No other Gastrointestinal: soft, nl liver, spleen, distended Extremities: edema (Left upper extremity more prominent in the right.), LE BL Results Result Diagram: 09/16/18 0537 09/16/18 8756 Medications Medication Current Medications Acetaminophen (Tylenol Tab) 500 mg Q6H PRN PO MILD PAIN(1-3)OR ELEVATED TEMP Last administered on 09/14/18at 14:29; Admin Dose 500 MG; Start 09/09/18 at 22:30 Anastrozole (Arimidex) 1 mg DAILY PO Last administered on 09/19/18 08:48; Admin Dose 1 MG; Start 09/10/18 at 09:00 Carvedilol (Coreg) 3.125 mg BID PO Last administered on 09/18/18 09:06; Admin Dose 3.125 MG; Start 09/09/18 at 22:30 Docusate Sodium (Colace) 200 mg BID PO Last administered on 09/19/18 20:33; Admin Dose 200 MG; Start 09/09/18 at 22:30 Escitalopram Oxalate (Lexapro) 10 mg DAILY PO Last administered on 09/19/18 08:44; Admin Dose 10 MG; Start 09/10/18 at 09:00 Magnesium Hydroxide (Milk Of Mag) 30 ml DAILY PO Last administered on 09/19/18 08:44; Admin Dose 30 ML; Start 09/10/18 at 09:00 Ondansetron HCl (Zofran Tab) 4 mg Q6H PRN PO NAUSEA AND/OR VOMITING Last administered on 09/16/18 09:11; Admin Dose 4 MG; Start 09/09/18 at 22:30 Pantoprazole (Protonix Tab) 40 mg AC BREAKFAST PO Last administered on 09/19/18 08:45; Admin Dose 40 MG; Start 09/10/18 at 07:00 Polyethylene Glycol (Miralax) 17 gm BID PO Last administered on 09/17/18 08:45; Admin Dose 17 GM; Start 09/09/18 at 22:30 Furosemide (Lasix) 40 mg BID DIURETICS IV Last administered on 09/19/18 17:45; Admin Dose 40 MG; Start 09/11/18 at 19:09 Metolazone (Zaroxolyn) 2.5 mg BID PO Last administered on 09/19/18 20:37; Admin Dose 2.5 MG; Start 09/13/18 at 05:30 Spironolactone (Aldactone) 50 mg DAILY PO Last administered on 09/18/18 09:05; Admin Dose 50 MG; Start 09/13/18 at 18:00 Potassium Chloride (Klor-Con 20) 20 meq BID PO Last administered on 09/19/18 20:34; Admin Dose 20 MEQ; Start 09/15/18 at 21:00 Albuterol/ Ipratropium (Duoneb) 3 ml Q8H RESP THERAPY PRN HHN SHORTNESS OF BREATH Last administered on 09/15/18 16:09; Admin Dose 3 ML; Start 09/15/18 at 14:30 Ondansetron HCl (Zofran Inj) 4 mg Q6H PRN IV NAUSEA AND/OR VOMITING Last administered on 09/16/18 05:44; Admin Dose 4 MG; Start 09/15/18 at 14:30 Oxycodone HCl (Oxycontin) 20 mg Q12 PO Last administered on 09/19/18 20:40; Admin Dose 20 MG; Start 09/15/18 at 21:00 Benazepril HCl (Lotensin) 5 mg DAILY PO Last administered on 09/18/18 09:07; Admin Dose 5 MG; Start 09/17/18 at 09:00 Olopatadine HCl (Patanol 0.1% Oph) 1 drop BID BOTH EYES Last administered on 09/19/18 20:38; Admin Dose 1 DROP; Start 09/16/18 at 21:00 Loratadine (Claritin) 10 mg DAILY PO Last administered on 09/19/18 08:45; Admin Dose 10 MG; Start 09/17/18 at 09:00 DES DUNAWAY MD Sep 19, 2018 22:57
[2018-09-20 03:00] VITALS: BP 95/59; PULSE 92; RESP 18
[2018-09-20] MEDS: FUROSEMIDE 40 MG INJ IV SCH ×2 (05:39→18:10)
[2018-09-20] MEDS: PANTOPRAZOLE (EC) 40 MG TAB PO SCH (05:39)
[2018-09-20 08:08] VITALS: BP 110/62; PULSE 82; RESP 19
[2018-09-20] MEDS: ESCITALOPRAM 10 MG TAB PO SCH (08:29)
[2018-09-20] MEDS: POLYETHYLENE GLYCOL 17 GM PACKET PO SCH ×2 (08:29→21:00)
[2018-09-20] MEDS: OLOPATADINE 0.1% 5 ML OPH BOTH EYES SCH ×2 (08:29→20:39)
[2018-09-20] MEDS: SPIRONOLACTONE 50 MG TAB PO SCH (08:29)
[2018-09-20] MEDS: DOCUSATE SODIUM 100 MG CAP PO SCH ×2 (08:29→20:40)
[2018-09-20] MEDS: LORATADINE 10 MG TAB PO SCH (08:30)
[2018-09-20] MEDS: POTASSIUM CHLORIDE (SR) 20 MEQ TAB PO SCH ×2 (08:30→20:42)
[2018-09-20] MEDS: oxyCODONE (CR) 10 MG TAB [oxyCONTIN] PO SCH ×2 (08:31→20:42)
[2018-09-20] MEDS: MAGNESIUM HYDROXIDE 30ML CUP PO SCH (08:31)
[2018-09-20] MEDS: BENAZEPRIL 5 MG TAB PO SCH (08:33)
[2018-09-20] MEDS: ONDANSETRON 4 MG TAB PO PRN (08:37)
[2018-09-20] MEDS: METOLAZONE 2.5 MG TAB PO SCH ×2 (08:38→20:41)
[2018-09-20] MEDS: ANASTROZOLE 1 MG TAB PO SCH (08:41)
--- NOTE | 2018-09-20 16:12 | CONS ---
Assessment/Plan Assessment/Plan Hospital Course (Demo Recall) IMPRESSION: 1. Congestive heart failure exacerbation, diastolic by most recent echo, acute on chronic.-neg trop x 3. Echo this admit EF 60/small pericardia effusion 2. Hypotension, currently low 3. Anasarca. 4. Metastatic breast carcinoma. 5. Leukopenia. 6. Thrombocytopenia.-ongoing 7. Pericardial effusion-small by echo with no HD consequence at this time Recc: -On med-surg -Continue Lasix diuresis as tolerated at increased dose plus metolazone for synergy and now aldactone -folllow K clsoely now on standing repletion BID and aldactone -S/p IV albumin infusion x 3 -Continue arimidex -coreg as tolerated only and will d/c benazepril given marginal BP and being held -repeat UE RAMÍREZ to assure no DVT lending to persistent swelling Consultation Date/Type/Reason Admit Date/Time Sep 09, 2018 at 14:53 Initial Consult Date 09/09/18 Type of Consult Cardiology Reason for Consultation CHF Requesting Provider: RUSS JEROME MD Date/Time of Note DATE: 09/20/18 TIME: 16:10 Exam/Review of Systems Vital Signs Vitals Vital Signs Date Temp Pulse Resp B/P (MAP) Pulse Ox O2 O2 Flow FiO2 Time Delivery Rate 09/20/18 98.2 82 19 110/62 96 08:08 (78) 09/20/18 2.0 05:55 09/19/18 Nasal 16:38 Cannula Intake and Output 09/19/18 09/19/18 09/20/18 1515:00 23:00 07:00 IntakeIntake Total 360 ml BalanceBalance 360 ml Exam Exam Review of Systems: CONSTITUTIONAL: No fevers, chills. PULMONARY: No sob CARDIOVASCULAR: No chest pain/palpitations GASTROINTESTINAL: No nausea/vomiting. GENITOURINARY: No hematuria/dysuria. MUSCULOSKELETAL: No myagias/arthalgias. PSYCHIATRIC: The patient denies depression. NEUROLOGIC: No weakness Constitutional: alert, oriented Head: normocephalic ENMT: mucosa pink and moist Neck: supple, jvd (9 cm water) Respiratory: clear to auscultation Cardiovascular: regular rate and rhythm Gastrointestinal: soft, non-tender Musculoskeletal: muscle tone (normal) Extremities: edema (persistent LUE swelling) 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: other (No focal deficits) Labs Result Diagram: 09/16/18 0537 09/16/18 1825 Medications Medications Current Medications Acetaminophen (Tylenol Tab) 500 mg Q6H PRN PO MILD PAIN(1-3)OR ELEVATED TEMP Last administered on 09/14/18 14:29; Admin Dose 500 MG; Start 09/09/18 at 22:30 Anastrozole (Arimidex) 1 mg DAILY PO Last administered on 09/20/18 08:41; Admin Dose 1 MG; Start 09/10/18 at 09:00 Carvedilol (Coreg) 3.125 mg BID PO Last administered on 09/18/18 09:06; Admin Dose 3.125 MG; Start 09/09/18 at 22:30 Docusate Sodium (Colace) 200 mg BID PO Last administered on 09/20/18 08:29; Admin Dose 200 MG; Start 09/09/18 at 22:30 Escitalopram Oxalate (Lexapro) 10 mg DAILY PO Last administered on 09/20/18 08:29; Admin Dose 10 MG; Start 09/10/18 at 09:00 Magnesium Hydroxide (Milk Of Mag) 30 ml DAILY PO Last administered on 09/20/18 08:31; Admin Dose 30 ML; Start 09/10/18 at 09:00 Ondansetron HCl (Zofran Tab) 4 mg Q6H PRN PO NAUSEA AND/OR VOMITING Last adm inistered on 09/20/18 08:37; Admin Dose 4 MG; Start 09/09/18 at 22:30 Pantoprazole (Protonix Tab) 40 mg AC BREAKFAST PO Last administered on 09/20/18 05:39; Admin Dose 40 MG; Start 09/10/18 at 07:00 Polyethylene Glycol (Miralax) 17 gm BID PO Last administered on 09/20/18 08:29; Admin Dose 17 GM; Start 09/09/18 at 22:30 Furosemide (Lasix) 40 mg BID DIURETICS IV Last administered on 09/20/18 05:39; Admin Dose 40 MG; Start 09/11/18 at 19:09 Metolazone (Zaroxolyn) 2.5 mg BID PO Last administered on 09/20/18 08:38; Admin Dose 2.5 MG; Start 09/13/18 at 05:30 Spironolactone (Aldactone) 50 mg DAILY PO Last administered on 09/20/18 08:29; Admin Dose 50 MG; Start 09/13/18 at 18:00 Potassium Chloride (Klor-Con 20) 20 meq BID PO Last administered on 09/20/18 08:30; Admin Dose 20 MEQ; Start 09/15/18 at 21:00 Albuterol/ Ipratropium (Duoneb) 3 ml Q8H RESP THERAPY PRN HHN SHORTNESS OF BREATH Last administered on 09/15/18 16:09; Admin Dose 3 ML; Start 09/15/18 at 14:30 Ondansetron HCl (Zofran Inj) 4 mg Q6H PRN IV NAUSEA AND/OR VOMITING Last administered on 09/16/18 05:44; Admin Dose 4 MG; Start 09/15/18 at 14:30 Oxycodone HCl (Oxycontin) 20 mg Q12 PO Last administered on 09/20/18 08:31; Admin Dose 20 MG; Start 09/15/18 at 21:00 Benazepril HCl (Lotensin) 5 mg DAILY PO Last administered on 09/18/18 09:07; Admin Dose 5 MG; Start 09/17/18 at 09:00 Olopatadine HCl (Patanol 0.1% Oph) 1 drop BID BOTH EYES Last administered on 09/20/18 08:29; Admin Dose 1 DROP; Start 09/16/18 at 21:00 Loratadine (Claritin) 10 mg DAILY PO Last administered on 09/20/18 08:30; Admin Dose 10 MG; Start 09/17/18 at 09:00 KAMILA TERESA Sep 20, 2018 16:12
[2018-09-20] MEDS ORDERED: POTASSIUM CHLORIDE (SR) 20 MEQ TAB PO STA (16:13)
[2018-09-20 16:43] VITALS: BP 111/70; PULSE 72; RESP 20
[2018-09-20 18:12] VITALS: BP 116/71; PULSE 100
[2018-09-20 19:45] VITALS: BP 131/73; PULSE 102; RESP 18
--- NOTE | 2018-09-20 20:35 | PN ---
Date/Time of Note Date/Time of Note DATE: 09/20/18 TIME: 20:31 Assessment/Plan VTE Prophylaxis Risk score (from Ns)>0 risk: 4 SCD applied (from Ns): Yes SCD contraindicated: low risk/ambulating Pharmacological prophylaxis: LMWH Pharm contraindication: low risk/ambulating Lines/Catheters IV Catheter Type (from [facility]): PORT-A-CATH Central line still needed: No Urinary Cath still in place: No Reason Cath still needed: urinary retention Assessment/Plan Assessment/Plan 1. Cancer of the left breast. Exact type at this time unknown.MULTIPLE BONY METS, PULMONARY METS 2. Severe pain in the interscapular and lumbar sacral area most probably metastatic lesion possible femoral fracture. pathologic fracture of T9 with 60% of loss of height. Neurosurgical f/u. 3. Obesity. 4. Weight loss 60 pounds during the last 2 years by diet 5. PMS. 6. Myopia. 7. Anemia chronic disease with a drop of her hematocrit to 27 and regaining to 30 without any measures. Latest results 28. Protonix was added. Today hematocrit is 26. Will recheck tomorrow 8. Anxiety disorder. Claustrophobia. Increase Ativan to 1 mg every 8 as needed at Lexapro 10 mg daily. 9. Posttraumatic stress disorder. 10. Pain in the left forearm with a history of fracture of ulna and radius. 11. Tachycardia 12. Hypoxemia at night marginal improved after 2 L of nasal cannula oxygen. 13. Deconditioning 14. 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 15. Pain syndrome. Today the most painful zone is in the right hip area. X- ray did not show any fractures. 16. Hyponatremia-persists; hypokalemia after massive diuresis. 17. Leucopenia-improved. 18. Neutropenia with occasional fever and chills. Last chemotherapy 5 days ago. 19. Hypoalbuminemia. 20.Right sided cp after catheter insertion and correction less discomfort. 21. Decreased edema both lower extremities with hypotension-improving 22.Swelling of the left forearm-persist. Now with erythema involving mainly the dorsum of the left upper extremity. 23.bilateral pleural effusions ; plan to perform tap tomorrow morning preferably from the left side done twice during this admission almost 1 L was evacuated to the first time and almost half a liter on 09/18/2018. 24. Systolic over diastolic congestive heart failure with a right more than left lower extremity swelling with no DVT in latest venous Doppler. 25. Pain syndrome Result Diagram: 09/16/18 0537 09/16/18 1440 Subjective 24 Hr Interval Summary Free Text/Dictation Upper and lower back pain left shoulder pain right hip pain persists. When I am not moving the tolerable level when I am moving they become intolerable. I am trying to postpone as much as possible and take over the next painkiller. Shortness of breath improved and very weak and fatigued.. No appetite. No sense of taste. Constitutional: poor po; No no complaints, No improved, No chills, No diaphoresis, No disoriented, No febrile, No requiring IVF, No requiring O2, No other ENT: congestion; No no complaints, No bleeding, No pain, No discharge, No dysphagia, No sore throat, No other Respiratory: cough, shortness of breath; No no complaints, No pain, No pleuritic pain, No sputum, No wheezing, No other Cardiovascular: edema, lightheadedness, palpitations; No no complaints, No chest pain, No orthopenea, No paroxysmal nocturnal dyspnea, No other Gastrointestinal: constipation, decreased appetite; No no complaints, No pain, No blood, No diarrhea, No flatus, No nausea, No passing stool, No vomiting, No other Genitourinary: dysuria; No no complaints, No bleeding, No discharge, No flank pain, No hematuria, No other Musculoskeletal: back pain, bone/joint pain, neck pain; No no complaints, No restricted range of motion, No swelling, No other Skin: No no complaints, No bruising, No erythema, No laceration, No pruritis, No rash, No skin lesions, No other Neurologic: headache; No no complaints, No confusion, No dizziness, No focal-weakness, No syncope, No seizure, No other Endocrine: dry skin; No no complaints, No polyuria, No polydypsia, No temp intolerance, No other Lymphatic: tender nodes Psychological: anxiety, confusion; No no complaints, No nl mood/affect, No depression, No suicidal, No other Exam/Review of Systems Exam Vitals Vital Signs Date Temp Pulse Resp B/P (MAP) Pulse Ox O2 O2 Flow FiO2 Time Delivery Rate 09/20/18 97.6 102 18 131/73 91 19:45 (92) 09/20/18 Room Air 18:12 09/20/18 2.0 05:55 Intake and Output 09/19/18 09/19/18 09/20/18 1515:00 23:00 07:00 IntakeIntake Total 360 ml BalanceBalance 360 ml Constitutional: alert, oriented, well developed, distress, frail, obese; No non-verbal, No other Psych: anxiety, depression; No no complaints, No nl mood/affect, No confusion, No suicidal, No other Head: normocephalic, atraumatic; No lacerations, No hematomas, No other Eyes: EOMI, nl lids, PERRL; No nl conjunctiva, No nl sclera, No icteric, No fundi, disc, No other ENMT: nl lips & teeth; No nl external ears & nose, No nl nasal mucosa & septum, No mucosa pink and moist, No intubated, No tympanic membranes, No other Neck: jvd, bruits, nuchal rigidity; No supple, No non-tender, No masses, No thyromegaly, No other Respiratory: clear to auscultation, labored breathing; No normal air movement, No congested cough, No crackles/rales, No diminished breath sounds, No intercostal retraction, No respirations, No tactile fremitus, No wheezing, No other Cardiovascular: nl pulses, bruits, edema, systolic murmur; No regular rate and rhythm, No diastolic murmur, No gallop, No irregular rhythm, No jugular venous distention (JVD), No murmurs/extra sounds, No rub, No S3, No S4, No other Gastrointestinal: nl liver, spleen, non-tender, distended; No soft, No ascites, No bowel sounds, No firm, No hepatomegaly, No mass, No rebound or guarding, No splenomegaly, No surgical scars, No tender, No other Genitourinary - Female: nl adnexae, nl external genitalia; No CMT, No CVA tenderness, No uterus, No other Musculoskeletal: joint tenderness, muscle tone, muscle weakness; No nl extremities to inspection, No nl gait and stance, No range of motion, No spine non-tender, No swelling, No other 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: [employer]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, confused, DTR's symmetric; No nl mental status, No nl speech, No nl strength, No focal weakness, No lethargic, No numbness, No reflexes, No unresponsive, No other Skin: nl turgor; No rash or lesions, No diaphoresis, No ecchymosis, No laceration, No puncture, No other Lymph: No nl lymph nodes, No enlarged, No nontender, No other Medications Medication Current Medications Acetaminophen (Tylenol Tab) 500 mg Q6H PRN PO MILD PAIN(1-3)OR ELEVATED TEMP Last administered on 09/14/18 14:29; Admin Dose 500 MG; Start 09/09/18 at 22:30 Anastrozole (Arimidex) 1 mg DAILY PO Last administered on 09/20/18 08:41; Admin Dose 1 MG; Start 09/10/18 at 09:00 Carvedilol (Coreg) 3.125 mg BID PO Last administered on 09/18/18 09:06; Admin Dose 3.125 MG; Start 09/09/18 at 22:30 Docusate Sodium (Colace) 200 mg BID PO Last administered on 09/20/18 08:29; Admin Dose 200 MG; Start 09/09/18 at 22:30 Escitalopram Oxalate (Lexapro) 10 mg DAILY PO Last administered on 09/20/18 08:29; Admin Dose 10 MG; Start 09/10/18 at 09:00 Magnesium Hydroxide (Milk Of Mag) 30 ml DAILY PO Last administered on 09/20/18 08:31; Admin Dose 30 ML; Start 09/10/18 at 09:00 Ondansetron HCl (Zofran Tab) 4 mg Q6H PRN PO NAUSEA AND/OR VOMITING Last administered on 09/20/18 08:37; Admin Dose 4 MG; Start 09/09/18 at 22:30 Pantoprazole (Protonix Tab) 40 mg AC BREAKFAST PO Last administered on 09/20/18 05:39; Admin Dose 40 MG; Start 09/10/18 at 07:00 Polyethylene Glycol (Miralax) 17 gm BID PO Last administered on 09/20/18 08:29; Admin Dose 17 GM; Start 09/09/18 at 22:30 Furosemide (Lasix) 40 mg BID DIURETICS IV Last administered on 09/20/18 18:10; Admin Dose 40 MG; Start 09/11/18 at 19:09 Metolazone (Zaroxolyn) 2.5 mg BID PO Last administered on 09/20/18 08:38; Admin Dose 2.5 MG; Start 09/13/18 at 05:30 Spironolactone (Aldactone) 50 mg DAILY PO Last administered on 09/20/18 08:29; Admin Dose 50 MG; Start 09/13/18 at 18:00 Potassium Chloride (Klor-Con 20) 20 meq BID PO Last administered on 09/20/18 08:30; Admin Dose 20 MEQ; Start 09/15/18 at 21:00 Albuterol/ Ipratropium (Duoneb) 3 ml Q8H RESP THERAPY PRN HHN SHORTNESS OF BREATH Last administered on 09/15/18 16:09; Admin Dose 3 ML; Start 09/15/18 at 14:30 Ondansetron HCl (Zofran Inj) 4 mg Q6H PRN IV NAUSEA AND/OR VOMITING Last administered on 09/16/18 05:44; Admin Dose 4 MG; Start 09/15/18 at 14:30 Oxycodone HCl (Oxycontin) 20 mg Q12 PO Last administered on 09/20/18 08:31; Admin Dose 20 MG; Start 09/15/18 at 21:00 Olopatadine HCl (Patanol 0.1% Oph) 1 drop BID BOTH EYES Last administered on 09/20/18 08:29; Admin Dose 1 DROP; Start 09/16/18 at 21:00 Loratadine (Claritin) 10 mg DAILY PO Last administered on 09/20/18 08:30; Admin Dose 10 MG; Start 09/17/18 at 09:00 RUSS JEROME MD Sep 20, 2018 20:35
--- NOTE | 2018-09-20 22:04 | CONS ---
Assessment/Plan Assessment/Plan Hospital Course (Demo Recall) METASTATIC BREAST CANCER WITH PRIMARY ADENOCARCINOMA IN the left breast. MULTIPLE BONY METS, PULMONARY METS, LIVER METS CHEMO ON HOLD PT HAS A VERY GOOD RESPONSE TO CHEMO AND AI CONT AI FOR NOW CT ABD FOR RESTAGING 3..19- noted , stable CT CHEST- STABLE/IMPROVING 1. Moderate bilateral pleural effusions with adjacent lung base consolidation/atelectasis. 2. Moderate pericardial effusion. 3. Decreased size of previously prominent mediastinal lymph nodes. Decreased size of sub centimeter axillary lymph nodes. 4. Stable nonspecific pulmonary nodules as described above. 5. Stable soft tissue nodule of the anterior left chest wall/breast. 6. Redemonstrated diffuse sclerotic metastatic osseous lesions with stable compression deformities of the thoracic spine. 7. Nodular contour of the liver with multiple hypoattenuating masses, grossly similar to prior exam. CYTOLOGY-P CARD - TO MONITOR FOR PERICARDIAL TAMPONADE, FOR NOW NO NEED TO DO PERICARDIOCENTESIS Leucopenia- post chemo NEUPOGEN- DC monitor closely post Neutropenia with occasional fever and chills. Anemia chronic disease SOB PLEURAL EFFUSIONS thoracentesis Fluid overload diuretic cardiology F-UP Congestive heart failure exacerbation, diastolic by most recent echo, acute on chronic.-neg trop x 3. Echo this admit EF 60/small pericardia effusion Hypotension, currently borderline-overall improved Anasarca. Severe pain in the interscapular and lumbar sacral area most probably metastatic lesion possible femoral fracture. pathologic fracture of T9 with 60% of loss of height. Obesity. Weight loss 60 pounds during the last 2 years PMS. Myopia. Anxiety disorder. Claustrophobia. Posttraumatic stress disorder. Pain in the left forearm with a history of fracture of ulna and radius. Tachycardia Hypoxemia at night marginal improved after 2 L of nasal cannula oxygen. Deconditioning Pain syndrome. Today the most painful zone is in the right hip area. X-ray did not show any fractures. Hyponatremia- resolved Hypoalbuminemia Right sided cp after catheter insertion and correction less discomfort. Decreased edema both lower extremities with hypotension-improving Swelling of the left forearm-persist. Consultation Date/Type/Reason Admit Date/Time Sep 09, 2018 at 14:53 Initial Consult Date 09/09/18 Type of Consult [facility] Requesting Provider: RUSS JEROME MD Date/Time of Note DATE: 09/20/18 TIME: 22:02 24 HR Interval Summary Free Text/Dictation all noted NAD Exam/Review of Systems Exam Vitals Vital Signs Date Temp Pulse Resp B/P (MAP) Pulse Ox O2 O2 Flow FiO2 Time Delivery Rate 09/20/18 97.6 102 18 131/73 91 19:45 (92) 09/20/18 Room Air 18:12 09/20/18 2.0 05:55 Intake and Output 09/19/18 09/19/18 09/20/18 1515:00 23:00 07:00 IntakeIntake Total 360 ml BalanceBalance 360 ml Exam Constitutional: alert, oriented, well developed, distress, frail Psych: anxiety, depression; No no complaints, No nl mood/affect, No confusion, No suicidal, No other Head: normocephalic, atraumatic Eyes: EOMI, nl lids; No nl conjunctiva, No nl sclera, No PERRL, No icteric, No fundi, disc, No other ENMT: No nl external ears & nose, No nl lips & teeth, No nl nasal mucosa & septum, No mucosa pink and moist, No intubated, No tympanic membranes, No other Neck: supple, jvd, bruits; No non-tender, No masses, No thyromegaly, No nuchal rigidity, No other Respiratory: congested cough, diminished breath sounds (Left more prominent than the right side.); No clear to auscultation, No normal air movement, No crackles/rales, No intercostal retraction, No labored breathing, No respirations, No tactile fremitus, No wheezing, No other Cardiovascular: No regular rate and rhythm, No nl pulses, No bruits, No diastolic murmur, No edema, No gallop, No irregular rhythm, No jugular venous distention (JVD), No murmurs/extra sounds, No rub, No systolic murmur, No S3, No S4, No other Gastrointestinal: soft, nl liver, spleen, distended Extremities: edema (Left upper extremity more prominent in the right.), LE BL Results Result Diagram: 09/16/18 0537 09/16/18 1825 Medications Medication Current Medications Acetaminophen (Tylenol Tab) 500 mg Q6H PRN PO MILD PAIN(1-3)OR ELEVATED TEMP Last administered on 09/14/18at 14:29; Admin Dose 500 MG; Start 09/09/18 at 22:30 Anastrozole (Arimidex) 1 mg DAILY PO Last administered on 09/20/18 08:41; Admin Dose 1 MG; Start 09/10/18 at 09:00 Carvedilol (Coreg) 3.125 mg BID PO Last administered on 09/20/18 20:45; Admin Dose 3.125 MG; Start 09/09/18 at 22:30 Docusate Sodium (Colace) 200 mg BID PO Last administered on 09/20/18 20:40; Admin Dose 200 MG; Start 09/09/18 at 22:30 Escitalopram Oxalate (Lexapro) 10 mg DAILY PO Last administered on 09/20/18 08:29; Admin Dose 10 MG; Start 09/10/18 at 09:00 Magnesium Hydroxide (Milk Of Mag) 30 ml DAILY PO Last administered on 09/20/18 08:31; Admin Dose 30 ML; Start 09/10/18 at 09:00 Ondansetron HCl (Zofran Tab) 4 mg Q6H PRN PO NAUSEA AND/OR VOMITING Last administered on 09/20/18 08:37; Admin Dose 4 MG; Start 09/09/18 at 22:30 Pantoprazole (Protonix Tab) 40 mg AC BREAKFAST PO Last administered on 09/20/18 05:39; Admin Dose 40 MG; Start 09/10/18 at 07:00 Polyethylene Glycol (Miralax) 17 gm BID PO Last administered on 09/20/18 08:29; Admin Dose 17 GM; Start 09/09/18 at 22:30 Furosemide (Lasix) 40 mg BID DIURETICS IV Last administered on 09/20/18 18:10; Admin Dose 40 MG; Start 09/11/18 at 19:09 Metolazone (Zaroxolyn) 2.5 mg BID PO Last administered on 09/20/18 20:41; Admin Dose 2.5 MG; Start 09/13/18 at 05:30 Spironolactone (Aldactone) 50 mg DAILY PO Last administered on 09/20/18 08:29; Admin Dose 50 MG; Start 09/13/18 at 18:00 Potassium Chloride (Klor-Con 20) 20 meq BID PO Last administered on 09/20/18 20:42; Admin Dose 20 MEQ; Start 09/15/18 at 21:00 Albuterol/ Ipratropium (Duoneb) 3 ml Q8H RESP THERAPY PRN HHN SHORTNESS OF BREATH Last administered on 09/15/18 16:09; Admin Dose 3 ML; Start 09/15/18 at 14:30 Ondansetron HCl (Zofran Inj) 4 mg Q6H PRN IV NAUSEA AND/OR VOMITING Last administered on 09/16/18 05:44; Admin Dose 4 MG; Start 09/15/18 at 14:30 Oxycodone HCl (Oxycontin) 20 mg Q12 PO Last administered on 09/20/18 20:42; Admin Dose 20 MG; Start 09/15/18 at 21:00 Olopatadine HCl (Patanol 0.1% Oph) 1 drop BID BOTH EYES Last administered on 09/20/18 20:39; Admin Dose 1 DROP; Start 09/16/18 at 21:00 Loratadine (Claritin) 10 mg DAILY PO Last administered on 09/20/18 08:30; Admin Dose 10 MG; Start 09/17/18 at 09:00 DES DUNAWAY MD Sep 20, 2018 22:04
[2018-09-20] MEDS: ACETAMINOPHEN 500 MG TAB PO PRN (22:55)
[2018-09-21 01:29] VITALS: BP 105/70; PULSE 108; RESP 18
[2018-09-21] MEDS: PANTOPRAZOLE (EC) 40 MG TAB PO SCH (05:47)
[2018-09-21] MEDS: FUROSEMIDE 40 MG INJ IV SCH ×2 (05:48→18:00)
[2018-09-21 07:41] VITALS: BP 119/68; PULSE 92; RESP 19
--- NOTE | 2018-09-21 08:52 | CONS ---
Assessment/Plan Assessment/Plan Hospital Course (Demo Recall) METASTATIC BREAST CANCER WITH PRIMARY ADENOCARCINOMA IN the left breast. MULTIPLE BONY METS, PULMONARY METS, LIVER METS CHEMO ON HOLD PT HAS A VERY GOOD RESPONSE TO CHEMO AND AI CONT AI FOR NOW CT ABD FOR RESTAGING 08.27.18- noted , stable CT CHEST- STABLE/IMPROVING 1. Moderate bilateral pleural effusions with adjacent lung base consolidation/atelectasis. 2. Moderate pericardial effusion. 3. Decreased size of previously prominent mediastinal lymph nodes. Decreased size of sub centimeter axillary lymph nodes. 4. Stable nonspecific pulmonary nodules as described above. 5. Stable soft tissue nodule of the anterior left chest wall/breast. 6. Redemonstrated diffuse sclerotic metastatic osseous lesions with stable compression deformities of the thoracic spine. 7. Nodular contour of the liver with multiple hypoattenuating masses, grossly similar to prior exam. CYTOLOGY-NEG CARD - TO MONITOR FOR PERICARDIAL TAMPONADE, FOR NOW NO NEED TO DO PERICARDIOCENTESIS Leucopenia- post chemo NEUPOGEN- DC monitor closely post Neutropenia with occasional fever and chills. Anemia chronic disease SOB PLEURAL EFFUSIONS post thoracentesis cytology -NEG ON 09.18.18 Fluid overload diuretic cardiology F-UP Congestive heart failure exacerbation, diastolic by most recent echo, acute on chronic.-neg trop x 3. Echo this admit EF 60/small pericardia effusion Hypotension, currently borderline-overall improved Anasarca. Severe pain in the interscapular and lumbar sacral area most probably metastatic lesion possible femoral fracture. pathologic fracture of T9 with 60% of loss of height. Obesity. Weight loss 60 pounds during the last 2 years PMS. Myopia. Anxiety disorder. Claustrophobia. Posttraumatic stress disorder. Pain in the left forearm with a history of fracture of ulna and radius. Tachycardia Hypoxemia at night marginal improved after 2 L of nasal cannula oxygen. Deconditioning Pain syndrome. Today the most painful zone is in the right hip area. X-ray did not show any fractures. Hyponatremia- resolved Hypoalbuminemia Right sided cp after catheter insertion and correction less discomfort. Decreased edema both lower extremities with hypotension-improving Swelling of the left forearm-persist. Consultation Date/Type/Reason Admit Date/Time Sep 09, 2018 at 14:53 Initial Consult Date 09/09/18 Type of Consult [facility] Requesting Provider: RUSS JEROME MD Date/Time of Note DATE: 09/21/18 TIME: 08:49 24 HR Interval Summary Free Text/Dictation all noted platelet count recovering tachycardia noted post thoracentesis cytology -NEG ON 09.18.18 Exam/Review of Systems Exam Vitals Vital Signs Date Temp Pulse Resp B/P (MAP) Pulse Ox O2 O2 Flow FiO2 Time Delivery Rate 09/21/18 98.2 92 19 119/68 96 07:41 (85) 09/20/18 Room Air 18:12 09/20/18 2.0 05:55 Intake and Output 09/20/18 09/20/18 09/21/18 1515:00 23:00 07:00 IntakeIntake Total 620 ml OutputOutput Total 2 ml BalanceBalance 618 ml Exam Constitutional: alert, oriented, well developed, distress, frail Psych: anxiety, depression; No no complaints, No nl mood/affect, No confusion, No suicidal, No other Head: normocephalic, atraumatic Eyes: EOMI, nl lids; No nl conjunctiva, No nl sclera, No PERRL, No icteric, No fundi, disc, No other ENMT: No nl external ears & nose, No nl lips & teeth, No nl nasal mucosa & septum, No mucosa pink and moist, No intubated, No tympanic membranes, No other Neck: supple, jvd, bruits; No non-tender, No masses, No thyromegaly, No nuchal rigidity, No other Respiratory: congested cough, diminished breath sounds (Left more prominent than the right side.); No clear to auscultation, No normal air movement, No crackles/rales, No intercostal retraction, No labored breathing, No respirations, No tactile fremitus, No wheezing, No other Cardiovascular: No regular rate and rhythm, No nl pulses, No bruits, No diastolic murmur, No edema, No gallop, No irregular rhythm, No jugular venous distention (JVD), No murmurs/extra sounds, No rub, No systolic murmur, No S3, No S4, No other Gastrointestinal: soft, nl liver, spleen, distended Extremities: edema (Left upper extremity more prominent in the right.), LE BL Medications Medication Current Medications Acetaminophen (Tylenol Tab) 500 mg Q6H PRN PO MILD PAIN(1-3)OR ELEVATED TEMP Last administered on 09/20/18 22:55; Admin Dose 500 MG; Start 09/09/18 at 22:30 Anastrozole (Arimidex) 1 mg DAILY PO Last administered on 09/20/18 08:41; Admin Dose 1 MG; Start 09/10/18 at 09:00 Carvedilol (Coreg) 3.125 mg BID PO Last administered on 09/20/18 20:45; Admin Dose 3.125 MG; Start 09/09/18 at 22:30 Docusate Sodium (Colace) 200 mg BID PO Last administered on 09/20/18 20:40; Admin Dose 200 MG; Start 09/09/18 at 22:30 Escitalopram Oxalate (Lexapro) 10 mg DAILY PO Last administered on 09/20/18 08:29; Admin Dose 10 MG; Start 09/10/18 at 09:00 Magnesium Hydroxide (Milk Of Mag) 30 ml DAILY PO Last administered on 09/20/18 08:31; Admin Dose 30 ML; Start 09/10/18 at 09:00 Ondansetron HCl (Zofran Tab) 4 mg Q6H PRN PO NAUSEA AND/OR VOMITING Last administered on 09/20/18 08:37; Admin Dose 4 MG; Start 09/09/18 at 22:30 Pantoprazole (Protonix Tab) 40 mg AC BREAKFAST PO Last administered on 09/21/18 05:47; Admin Dose 40 MG; Start 09/10/18 at 07:00 Polyethylene Glycol (Miralax) 17 gm BID PO Last administered on 09/20/18 08:29; Admin Dose 17 GM; Start 09/09/18 at 22:30 Furosemide (Lasix) 40 mg BID DIURETICS IV Last administered on 09/21/18 05:48; Admin Dose 40 MG; Start 09/11/18 at 19:09 Metolazone (Zaroxolyn) 2.5 mg BID PO Last administered on 09/20/18 20:41; Admin Dose 2.5 MG; Start 09/13/18 at 05:30 Spironolactone (Aldactone) 50 mg DAILY PO Last administered on 09/20/18 08:29; Admin Dose 50 MG; Start 09/13/18 at 18:00 Potassium Chloride (Klor-Con 20) 20 meq BID PO Last administered on 09/20/18 20:42; Admin Dose 20 MEQ; Start 09/15/18 at 21:00 Albuterol/ Ipratropium (Duoneb) 3 ml Q8H RESP THERAPY PRN HHN SHORTNESS OF BREATH Last administered on 09/15/18 16:09; Admin Dose 3 ML; Start 09/15/18 at 14:30 Ondansetron HCl (Zofran Inj) 4 mg Q6H PRN IV NAUSEA AND/OR VOMITING Last administered on 09/16/18 05:44; Admin Dose 4 MG; Start 09/15/18 at 14:30 Oxycodone HCl (Oxycontin) 20 mg Q12 PO Last administered on 09/20/18 20:42; Admin Dose 20 MG; Start 09/15/18 at 21:00 Olopatadine HCl (Patanol 0.1% Oph) 1 drop BID BOTH EYES Last administered on 09/20/18 20:39; Admin Dose 1 DROP; Start 09/16/18 at 21:00 Loratadine (Claritin) 10 mg DAILY PO Last administered on 09/20/18 08:30; Admin Dose 10 MG; Start 09/17/18 at 09:00 DES DUNAWAY MD Sep 21, 2018 08:52
[2018-09-21] MEDS: POLYETHYLENE GLYCOL 17 GM PACKET PO SCH ×3 (09:00→21:00)
[2018-09-21] MEDS: METOLAZONE 2.5 MG TAB PO SCH ×2 (09:01→20:25)
[2018-09-21] MEDS: POTASSIUM CHLORIDE (SR) 20 MEQ TAB PO SCH ×2 (09:02→20:26)
[2018-09-21] MEDS: DOCUSATE SODIUM 100 MG CAP PO SCH ×2 (09:02→20:24)
[2018-09-21] MEDS: OLOPATADINE 0.1% 5 ML OPH BOTH EYES SCH ×2 (09:02→21:00)
[2018-09-21] MEDS: SPIRONOLACTONE 50 MG TAB PO SCH (09:02)
[2018-09-21] MEDS: MAGNESIUM HYDROXIDE 30ML CUP PO SCH (09:04)
[2018-09-21] MEDS: LORATADINE 10 MG TAB PO SCH (09:04)
[2018-09-21] MEDS: ESCITALOPRAM 10 MG TAB PO SCH (09:04)
[2018-09-21] MEDS: ANASTROZOLE 1 MG TAB PO SCH (09:06)
[2018-09-21] MEDS: oxyCODONE (CR) 10 MG TAB [oxyCONTIN] PO SCH ×2 (09:11→20:25)
[2018-09-21 15:06] VITALS: BP 111/62; PULSE 82; RESP 18
--- NOTE | 2018-09-21 16:26 | CONS ---
Assessment/Plan Assessment/Plan Hospital Course (Demo Recall) IMPRESSION: 1. Congestive heart failure exacerbation, diastolic by most recent echo, acute on chronic.-neg trop x 3. Echo this admit EF 60/small pericardia effusion 2. Hypotension, currently low 3. Anasarca. 4. Metastatic breast carcinoma. 5. Leukopenia. 6. Thrombocytopenia.-ongoing 7. Pericardial effusion-small by echo with no HD consequence at this time Recc: -On med-surg -Continue Lasix diuresis as tolerated at increased dose plus metolazone for synergy and now aldactone -folllow K clsoely now on standing repletion BID and aldactone -S/p IV albumin infusion x 3 -Continue arimidex -coreg as tolerated only Consultation Date/Type/Reason Admit Date/Time Sep 09, 2018 at 14:53 Initial Consult Date 09/09/18 Type of Consult Cardiology Reason for Consultation CHF Requesting Provider: RUSS JEROME MD Date/Time of Note DATE: 09/21/18 TIME: 16:22 Exam/Review of Systems Vital Signs Vitals Vital Signs Date Temp Pulse Resp B/P (MAP) Pulse Ox O2 O2 Flow FiO2 Time Delivery Rate 09/21/18 97.2 82 18 111/62 98 15:06 (78) 09/20/18 Room Air 18:12 09/20/18 2.0 05:55 Intake and Output 09/20/18 09/20/18 09/21/18 1515:00 23:00 07:00 IntakeIntake Total 620 ml OutputOutput Total 2 ml BalanceBalance 618 ml Exam Exam Review of Systems: CONSTITUTIONAL: No fevers, chills. PULMONARY: No sob CARDIOVASCULAR: No chest pain/palpitations GASTROINTESTINAL: No nausea/vomiting. GENITOURINARY: No hematuria/dysuria. MUSCULOSKELETAL: No myagias/arthalgias. PSYCHIATRIC: The patient denies depression. NEUROLOGIC: No weakness Constitutional: alert Psych: no complaints Head: normocephalic ENMT: mucosa pink and moist Neck: supple, jvd (9 cm water) Respiratory: diminished breath sounds Cardiovascular: regular rate and rhythm Gastrointestinal: soft, non-tender Musculoskeletal: muscle tone (nbormal) Extremities: edema (nonw) 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: other (No focal deficits) Medications Medications Current Medications Acetaminophen (Tylenol Tab) 500 mg Q6H PRN PO MILD PAIN(1-3)OR ELEVATED TEMP L ast administered on 09/20/18 22:55; Admin Dose 500 MG; Start 09/09/18 at 22:30 Anastrozole (Arimidex) 1 mg DAILY PO Last administered on 09/21/18 09:06; Admin Dose 1 MG; Start 09/10/18 at 09:00 Carvedilol (Coreg) 3.125 mg BID PO Last administered on 09/21/18 09:02; Admin Dose 3.125 MG; Start 09/09/18 at 22:30 Docusate Sodium (Colace) 200 mg BID PO Last administered on 09/21/18 09:02; Admin Dose 200 MG; Start 09/09/18 at 22:30 Escitalopram Oxalate (Lexapro) 10 mg DAILY PO Last administered on 09/21/18 09 :04; Admin Dose 10 MG; Start 09/10/18 at 09:00 Magnesium Hydroxide (Milk Of Mag) 30 ml DAILY PO Last administered on 09/21/18 09:04; Admin Dose 30 ML; Start 09/10/18 at 09:00 Ondansetron HCl (Zofran Tab) 4 mg Q6H PRN PO NAUSEA AND/OR VOMITING Last admini stered on 09/20/18 08:37; Admin Dose 4 MG; Start 09/09/18 at 22:30 Pantoprazole (Protonix Tab) 40 mg AC BREAKFAST PO Last administered on 09/21/18 05:47; Admin Dose 40 MG; Start 09/10/18 at 07:00 Polyethylene Glycol (Miralax) 17 gm BID PO Last administered on 09/20/18 08:29; Admin Dose 17 GM; Start 09/09/18 at 22:30 Furosemide (Lasix) 40 mg BID DIURETICS IV Last administered on 09/21/18 05:48; Admin Dose 40 MG; Start 09/11/18 at 19:09 Metolazone (Zaroxolyn) 2.5 mg BID PO Last administered on 09/21/18 09:01; Admin Dose 2.5 MG; Start 09/13/18 at 05:30 Spironolactone (Aldactone) 50 mg DAILY PO Last administered on 09/21/18 09:02; Admin Dose 50 MG; Start 09/13/18 at 18:00 Potassium Chloride (Klor-Con 20) 20 meq BID PO Last administered on 09/21/18 09:02; Admin Dose 20 MEQ; Start 09/15/18 at 21:00 Albuterol/ Ipratropium (Duoneb) 3 ml Q8H RESP THERAPY PRN HHN SHORTNESS OF BREATH Last administered on 09/15/18 16:09; Admin Dose 3 ML; Start 09/15/18 at 14:30 Ondansetron HCl (Zofran Inj) 4 mg Q6H PRN IV NAUSEA AND/OR VOMITING Last administered on 09/16/18 05:44; Admin Dose 4 MG; Start 09/15/18 at 14:30 Oxycodone HCl (Oxycontin) 20 mg Q12 PO Last administered on 09/21/18 09:11; Admin Dose 20 MG; Start 09/15/18 at 21:00 Olopatadine HCl (Patanol 0.1% Oph) 1 drop BID BOTH EYES Last administered on 09/21/18 09:02; Admin Dose 1 DROP; Start 09/16/18 at 21:00 Loratadine (Claritin) 10 mg DAILY PO Last administered on 09/21/18 09:04; Admin Dose 10 MG; Start 09/17/18 at 09:00 KAMILA TERESA Sep 21, 2018 16:26
--- NOTE | 2018-09-21 16:29 | CONS ---
Assessment/Plan Assessment/Plan Hospital Course (Demo Recall) IMPRESSION: 1. Congestive heart failure exacerbation, diastolic by most recent echo, acute on chronic.-neg trop x 3. Echo this admit EF 60/small pericardia effusion 2. Hypotension, currently low 3. Anasarca. 4. Metastatic breast carcinoma. 5. Leukopenia. 6. Thrombocytopenia.-ongoing 7. Pericardial effusion-small by echo with no HD consequence at this time Recc: -On med-surg -Continue Lasix diuresis as tolerated at increased dose plus metolazone for synergy and now aldactone and follow volume status closely -folllow K clsoely now on standing repletion BID and aldactone -S/p IV albumin infusion x 3 -Continue arimidex -coreg as tolerated only Consultation Date/Type/Reason Admit Date/Time Sep 09, 2018 at 14:53 Initial Consult Date 09/09/18 Type of Consult Cardiology Reason for Consultation CHF Requesting Provider: RUSS JEROME MD Date/Time of Note DATE: 09/21/18 TIME: 16:26 Exam/Review of Systems Vital Signs Vitals Vital Signs Date Temp Pulse Resp B/P (MAP) Pulse Ox O2 O2 Flow FiO2 Time Delivery Rate 09/21/18 97.2 82 18 111/62 98 15:06 (78) 09/20/18 Room Air 18:12 09/20/18 2.0 05:55 Intake and Output 09/20/18 09/20/18 09/21/18 1515:00 23:00 07:00 IntakeIntake Total 620 ml OutputOutput Total 2 ml BalanceBalance 618 ml Exam Exam Review of Systems: CONSTITUTIONAL: No fevers, chills. PULMONARY: No sob CARDIOVASCULAR: No chest pain/palpitations GASTROINTESTINAL: No nausea/vomiting. GENITOURINARY: No hematuria/dysuria. MUSCULOSKELETAL: No myagias/arthalgias. PSYCHIATRIC: The patient denies depression. NEUROLOGIC: No weakness Constitutional: alert Psych: no complaints Head: normocephalic ENMT: mucosa pink and moist Neck: supple, jvd (9 cm) Respiratory: diminished breath sounds Cardiovascular: regular rate and rhythm Gastrointestinal: soft, non-tender Musculoskeletal: muscle tone (normal) Extremities: edema (none) Medications Medications Current Medications Acetaminophen (Tylenol Tab) 500 mg Q6H PRN PO MILD PAIN(1-3)OR ELEVATED TEMP Last administered on 09/20/18 22:55; Admin Dose 500 MG; Start 09/09/18 at 22:30 Anastrozole (Arimidex) 1 mg DAILY PO Last administered on 09/21/18 09:06; Admin Dose 1 MG; Start 09/10/18 at 09:00 Carvedilol (Coreg) 3.125 mg BID PO Last administered on 09/21/18 09:02; Admin Dose 3.125 MG; Start 09/09/18 at 22:30 Docusate Sodium (Colace) 200 mg BID PO Last administered on 09/21/18 09:02; Admin Dose 200 MG; Start 09/09/18 at 22:30 Escitalopram Oxalate (Lexapro) 10 mg DAILY PO Last administered on 09/21/18 09:04; Admin Dose 10 MG; Start 09/10/18 at 09:00 Magnesium Hydroxide (Milk Of Mag) 30 ml DAILY PO Last administered on 09/21/18 09:04; Admin Dose 30 ML; Start 09/10/18 at 09:00 Ondansetron HCl (Zofran Tab) 4 mg Q6H PRN PO NAUSEA AND/OR VOMITING Last administered on 09/20/18 08:37; Admin Dose 4 MG; Start 09/09/18 at 22:30 Pantoprazole (Protonix Tab) 40 mg AC BREAKFAST PO Last administered on 09/21/18 05:47; Admin Dose 40 MG; Start 09/10/18 at 07:00 Polyethylene Glycol (Miralax) 17 gm BID PO Last administered on 09/20/18 08:29; Admin Dose 17 GM; Start 09/09/18 at 22:30 Furosemide (Lasix) 40 mg BID DIURETICS IV Last administered on 09/21/18 05:48; Admin Dose 40 MG; Start 09/11/18 at 19:09 Metolazone (Zaroxolyn) 2.5 mg BID PO Last administered on 09/21/18 09:01; Admin Dose 2.5 MG; Start 09/13/18 at 05:30 Spironolactone (Aldactone) 50 mg DAILY PO Last administered on 09/21/18 09:02; Admin Dose 50 MG; Start 09/13/18 at 18:00 Potassium Chloride (Klor-Con 20) 20 meq BID PO Last administered on 09/21/18 09:02; Admin Dose 20 MEQ; Start 09/15/18 at 21:00 Albuterol/ Ipratropium (Duoneb) 3 ml Q8H RESP THERAPY PRN HHN SHORTNESS OF BREATH Last administered on 09/15/18 16:09; Admin Dose 3 ML; Start 09/15/18 at 14:30 Ondansetron HCl (Zofran Inj) 4 mg Q6H PRN IV NAUSEA AND/OR VOMITING Last administered on 09/16/18 05:44; Admin Dose 4 MG; Start 09/15/18 at 14:30 Oxycodone HCl (Oxycontin) 20 mg Q12 PO Last administered on 09/21/18 09:11; Admin Dose 20 MG; Start 09/15/18 at 21:00 Olopatadine HCl (Patanol 0.1% Oph) 1 drop BID BOTH EYES Last administered on 09/21/18 09:02; Admin Dose 1 DROP; Start 09/16/18 at 21:00 Loratadine (Claritin) 10 mg DAILY PO Last administered on 09/21/18 09:04; Admin Dose 10 MG; Start 09/17/18 at 09:00 KAMILA TERESA Sep 21, 2018 16:29
--- NOTE | 2018-09-21 17:49 | PN ---
Date/Time of Note Date/Time of Note DATE: 09/21/18 TIME: 17:49 Assessment/Plan VTE Prophylaxis Risk score (from Nsg)>0 risk: 7 SCD applied (from Ns): Yes SCD contraindicated: low risk/ambulating Pharmacological prophylaxis: LMWH Lines/Catheters IV C[facility] Peripheral IV (PORT-A-CATH) Central line still needed: No Urinary Cath still in place: No Reason Cath still needed: urinary retention Assessment/Plan Assessment/Plan 1. Cancer of the left breast. Exact type at this time unknown.MULTIPLE BONY METS, PULMONARY METS 2. Severe pain in the interscapular and lumbar sacral area most probably metastatic lesion possible femoral fracture. pathologic fracture of T9 with 60% of loss of height. Neurosurgical f/u. 3. Obesity. 4. Weight loss 60 pounds during the last 2 years by diet 5. PMS. 6. Myopia. 7. Anemia chronic disease with a drop of her hematocrit to 27 and regaining to 30 without any measures. Latest results 28. Protonix was added. Today hematocrit is 26. Will recheck tomorrow 8. Anxiety disorder. Claustrophobia. Increase Ativan to 1 mg every 8 as needed at Lexapro 10 mg daily. 9. Posttraumatic stress disorder. 10. Pain in the left forearm with a history of fracture of ulna and radius. 11. Tachycardia 12. Hypoxemia at night marginal improved after 2 L of nasal cannula oxygen. 13. Deconditioning 14. 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 15. Pain syndrome. Today the most painful zone is in the right hip area. X- ray did not show any fractures. 16. Hyponatremia-persists; hypokalemia after massive diuresis. 17. Leucopenia-improved. 18. Neutropenia with occasional fever and chills. Last chemotherapy 5 days ago. 19. Hypoalbuminemia. 20.Right sided cp after catheter insertion and correction less discomfort. 21. Decreased edema both lower extremities with hypotension-improving 22.Swelling of the left forearm-persist. Now with erythema involving mainly the dorsum of the left upper extremity. 23.bilateral pleural effusions ; plan to perform tap tomorrow morning preferably from the left side done twice during this admission almost 1 L was evacuated to the first time and almost half a liter on 09/18/2018. 24. Systolic over diastolic congestive heart failure with a right more than left lower extremity swelling with no DVT in latest venous Doppler. 25. Pain syndrome Subjective 24 Hr Interval Summary Free Text/Dictation Persistent neck left or the right shoulder upper and lower back pain right more than left hip and pelvic pain. Constitutional: improved, poor po, requiring IVF, requiring O2; No no complaints, No chills, No diaphoresis, No disoriented, No febrile, No other Eyes: No no complaints, No pain, No discharge, No redness, No visual change, No other ENT: congestion, discharge; No no complaints, No bleeding, No pain, No dysphagia, No sore throat, No other Respiratory: cough, pleuritic pain, shortness of breath; No no complaints, No pain, No sputum, No wheezing, No other Gastrointestinal: constipation, decreased appetite, flatus, nausea; No no complaints, No pain, No blood, No diarrhea, No passing stool, No vomiting, No other Genitourinary: dysuria; No no complaints, No bleeding, No discharge, No flank pain, No hematuria, No other Musculoskeletal: back pain, bone/joint pain, neck pain; No no complaints, No restricted range of motion, No swelling, No other Skin: No no complaints, No bruising, No erythema, No laceration, No pruritis, No rash, No skin lesions, No other Neurologic: confusion, dizziness Endocrine: dry skin; No no complaints, No polyuria, No polydypsia, No temp intolerance, No other Lymphatic: lymphadema Psychological: anxiety, depression; No no complaints, No nl mood/affect, No confusion, No suicidal, No other Exam/Review of Systems Exam Vitals Vital Signs Date Temp Pulse Resp B/P (MAP) Pulse Ox O2 O2 Flow FiO2 Time Delivery Rate 09/21/18 97.2 82 18 111/62 98 15:06 (78) 09/20/18 Room Air 18:12 09/20/18 2.0 05:55 Intake and Output 09/20/18 09/20/18 09/21/18 1515:00 23:00 07:00 IntakeIntake Total 620 ml OutputOutput Total 2 ml BalanceBalance 618 ml Constitutional: alert, oriented, well developed, distress Psych: anxiety; No no complaints, No nl mood/affect, No confusion, No depression, No suicidal, No other Head: normocephalic, atraumatic; No lacerations, No hematomas, No other Eyes: EOMI, nl lids; No nl conjunctiva, No nl sclera, No PERRL, No icteric, No fundi, disc, No o ther ENMT: No nl external ears & nose, No nl lips & teeth, No nl nasal mucosa & septum, No mucosa pink and moist, No intubated, No tympanic membranes, No other Neck: jvd, nuchal rigidity; No supple, No non-tender, No bruits, No masses, No thyromegaly, No other Respiratory: clear to auscultation, normal air movement, crackles/rales, diminished breath sounds Cardiovascular: edema (Right more than left lower extremity but overall less than yesterday.); No regular rate and rhythm, No nl pulses, No bruits, No diastolic murmur, No gallop, No irregular rhythm, No jugular venous distention (JVD), No murmurs/extra sounds, No rub, No systolic murmur, No S3, No S4, No other Gastrointestinal: soft, bowel sounds, distended; No nl liver, spleen, No non-tender, No ascites, No firm, No hepatomegaly, No mass, No rebound or guarding, No splenomegaly, No surgical scars, No tender, No other Musculoskeletal: joint tenderness, muscle tone, muscle weakness, spine non- tender; No nl extremities to inspection, No nl gait and stance, No range of motion, No swelling, No other Extremities: edema (Left upper extremity edema had decreased but still present. The patient was advised while she is laying down to put left upper extremity above the level of heart.); No normal pulses, No calf tenderness, No cyanosis, No clubbing, No pitting pedal edema, No palpable cord, No tenderness, No other 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: [employer] 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, nl speech, numbness; No nl mental status, No nl strength, No confused, No DTR's symmetric, No focal weakness, No lethargic, No reflexes, No unresponsive, No other Medications Medication Current Medications Acetaminophen (Tylenol Tab) 500 mg Q6H PRN PO MILD PAIN(1-3)OR ELEVATED TEMP Last administered on 09/20/18at 22:55; Admin Dose 500 MG; Start 09/09/18 at 22:30 Anastrozole (Arimidex) 1 mg DAILY PO Last administered on 09/21/18 09:06; Admin Dose 1 MG; Start 09/10/18 at 09:00 Carvedilol (Coreg) 3.125 mg BID PO Last administered on 09/21/18 09:02; Admin Dose 3.125 MG; Start 09/09/18 at 22:30 Docusate Sodium (Colace) 200 mg BID PO Last administered on 09/21/18 09:02; Admin Dose 200 MG; Start 09/09/18 at 22:30 Escitalopram Oxalate (Lexapro) 10 mg DAILY PO Last administered on 09/21/18 09:04; Admin Dose 10 MG; Start 09/10/18 at 09:00 Magnesium Hydroxide (Milk Of Mag) 30 ml DAILY PO Last administered on 09/21/18 09:04; Admin Dose 30 ML; Start 09/10/18 at 09:00 Ondansetron HCl (Zofran Tab) 4 mg Q6H PRN PO NAUSEA AND/OR VOMITING Last administered on 09/20/18 08:37; Admin Dose 4 MG; Start 09/09/18 at 22:30 Pantoprazole (Protonix Tab) 40 mg AC BREAKFAST PO Last administered on 09/21/18 05:47; Admin Dose 40 MG; Start 09/10/18 at 07:00 Polyethylene Glycol (Miralax) 17 gm BID PO Last administered on 09/20/18 08:29; Admin Dose 17 GM; Start 09/09/18 at 22:30 Furosemide (Lasix) 40 mg BID DIURETICS IV Last administered on 09/21/18 05:48; Admin Dose 40 MG; Start 09/11/18 at 19:09 Metolazone (Zaroxolyn) 2.5 mg BID PO Last administered on 09/21/18 09:01; Admin Dose 2.5 MG; Start 09/13/18 at 05:30 Spironolactone (Aldactone) 50 mg DAILY PO Last administered on 09/21/18 09:02; Admin Dose 50 MG; Start 09/13/18 at 18:00 Potassium Chloride (Klor-Con 20) 20 meq BID PO Last administered on 09/21/18 09:02; Admin Dose 20 MEQ; Start 09/15/18 at 21:00 Albuterol/ Ipratropium (Duoneb) 3 ml Q8H RESP THERAPY PRN HHN SHORTNESS OF BREATH Last administered on 09/15/18 16:09; Admin Dose 3 ML; Start 09/15/18 at 14:30 Ondansetron HCl (Zofran Inj) 4 mg Q6H PRN IV NAUSEA AND/OR VOMITING Last administered on 09/16/18 05:44; Admin Dose 4 MG; Start 09/15/18 at 14:30 Oxycodone HCl (Oxycontin) 20 mg Q12 PO Last administered on 09/21/18 09:11; Admin Dose 20 MG; Start 09/15/18 at 21:00 Olopatadine HCl (Patanol 0.1% Oph) 1 drop BID BOTH EYES Last administered on 09/21/18 09:02; Admin Dose 1 DROP; Start 09/16/18 at 21:00 Loratadine (Claritin) 10 mg DAILY PO Last administered on 09/21/18 09:04; Admin Dose 10 MG; Start 09/17/18 at 09:00 RUSS JEROME MD Sep 21, 2018 17:49
[2018-09-21 19:30] VITALS: BP 96/57; PULSE 88; RESP 18
[2018-09-22 02:00] VITALS: BP 101/66; PULSE 101; RESP 18
[2018-09-22] MEDS: ONDANSETRON 4 MG INJ IV PRN (05:09)
[2018-09-22] MEDS: PANTOPRAZOLE (EC) 40 MG TAB PO SCH (05:09)
[2018-09-22] MEDS: FUROSEMIDE 40 MG INJ IV SCH (05:34)
[2018-09-22 07:24] VITALS: BP 95/51; PULSE 86; RESP 16
[2018-09-22] MEDS: ESCITALOPRAM 10 MG TAB PO SCH (09:03)
[2018-09-22] MEDS: SPIRONOLACTONE 50 MG TAB PO SCH (09:03)
[2018-09-22] MEDS: POTASSIUM CHLORIDE (SR) 20 MEQ TAB PO SCH ×2 (09:03→21:23)
[2018-09-22] MEDS: POLYETHYLENE GLYCOL 17 GM PACKET PO SCH ×2 (09:03→21:24)
[2018-09-22] MEDS: DOCUSATE SODIUM 100 MG CAP PO SCH ×2 (09:03→21:23)
[2018-09-22] MEDS: MAGNESIUM HYDROXIDE 30ML CUP PO SCH (09:03)
[2018-09-22] MEDS: LORATADINE 10 MG TAB PO SCH (09:03)
[2018-09-22] MEDS: ANASTROZOLE 1 MG TAB PO SCH (09:06)
[2018-09-22] MEDS: OLOPATADINE 0.1% 5 ML OPH BOTH EYES SCH ×2 (09:10→21:25)
[2018-09-22] MEDS: oxyCODONE (CR) 10 MG TAB [oxyCONTIN] PO SCH ×2 (09:10→21:23)
[2018-09-22] MEDS: METOLAZONE 2.5 MG TAB PO SCH (10:19)
--- NOTE | 2018-09-22 13:33 | PN ---
Date/Time of Note Date/Time of Note DATE: 09/22/18 TIME: 13:30 Assessment/Plan VTE Prophylaxis Risk score (from Nsg)>0 risk: 7 SCD applied (from Ns): No SCD contraindicated: low risk/ambulating Pharmacological prophylaxis: LMWH Lines/Catheters IV Catheter Type (from Nrs): PORT-A-CATH Urinary Cath still in place: No Assessment/Plan Assessment/Plan 1. Cancer of the left breast. Exact type at this time unknown.MULTIPLE BONY METS, PULMONARY METS 2. Severe pain in the interscapular and lumbar sacral area most probably metastatic lesion possible femoral fracture. pathologic fracture of T9 with 60% of loss of height. Neurosurgical f/u. 3. Obesity. 4. Weight loss 60 pounds during the last 2 years by diet 5. PMS. 6. Myopia. 7. Anemia chronic disease with a drop of her hematocrit to 27 and regaining to 30 without any measures. Latest results 28. Protonix was added. Today hematocrit is 26. Will recheck tomorrow 8. Anxiety disorder. Claustrophobia. Increase Ativan to 1 mg every 8 as needed at Lexapro 10 mg daily. 9. Posttraumatic stress disorder. 10. Pain in the left forearm with a history of fracture of ulna and radius. 11. Tachycardia 12. Hypoxemia at night marginal improved after 2 L of nasal cannula oxygen. 13. Deconditioning 14. 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 15. Pain syndrome. Today the most painful zone is in the right hip area. X- ray did not show any fractures. 16. Hyponatremia-persists; hypokalemia after massive diuresis. 17. Leucopenia-improved. 18. Neutropenia with occasional fever and chills. Last chemotherapy 5 days ago. 19. Hypoalbuminemia. 20.Right sided cp after catheter insertion and correction less discomfort. 21. Decreased edema both lower extremities with hypotension-improving 22.Swelling of the left forearm-persist. Now with erythema involving mainly the dorsum of the left upper extremity. 23.bilateral pleural effusions ; plan to perform tap tomorrow morning preferably from the left side done twice during this admission almost 1 L was evacuated to the first time and almost half a liter on 09/18/2018. 24. Systolic over diastolic congestive heart failure with a right more than left lower extremity swelling with no DVT in latest venous Doppler. 25. Pain syndrome Subjective 24 Hr Interval Summary Free Text/Dictation SEVERE WEAKNESS WITH SOB. Constitutional: improved, diaphoresis, disoriented, poor po, requiring IVF, requiring O2 Eyes: No no complaints, No pain, No discharge, No redness, No visual change, No other ENT: congestion, discharge; No no complaints, No bleeding, No pain, No dysphagia, No sore throat, No other Respiratory: cough, pleuritic pain, shortness of breath; No no complaints, No pain, No sputum, No wheezing, No other Cardiovascular: edema, lightheadedness, orthopenea, palpitations; No no complaints, No chest pain, No paroxysmal nocturnal dyspnea, No other Gastrointestinal: decreased appetite, flatus; No no complaints, No pain, No blood, No constipation, No diarrhea, No nausea, No passing stool, No vomiting, No other Genitourinary: dysuria, discharge; No no complaints, No bleeding, No flank pain, No hematuria, No other Musculoskeletal: back pain, bone/joint pain, neck pain Skin: bruising, laceration, rash; No no complaints, No erythema, No pruritis, No skin lesions, No other Neurologic: dizziness, focal-weakness, headache; No no complaints, No confusion, No syncope, No seizure, No other Endocrine: dry skin; No no complaints, No polyuria, No polydypsia, No temp intolerance, No other Psychological: anxiety, depression; No no complaints, No nl mood/affect, No confusion, No suicidal, No other Exam/Review of Systems Exam Vitals Vital Signs Date Temp Pulse Resp B/P (MAP) Pulse Ox O2 O2 Flow FiO2 Time Delivery Rate 09/22/18 Nasal 2.0 08:00 Cannula 09/22/18 98.1 86 16 95/51 (66) 99 07:24 Intake and Output 09/21/18 09/21/18 09/22/18 1414:59 22:59 06:59 IntakeIntake Total 680 ml BalanceBalance 680 ml Constitutional: alert, oriented, well developed, distress; No non-verbal, No frail, No obese, No other Psych: anxiety, confusion; No no complaints, No nl mood/affect, No depression, No suicidal, No other Head: normocephalic, atraumatic; No lacerations, No hematomas, No other Eyes: EOMI, nl lids; No nl conjunctiva, No nl sclera, No PERRL, No icteric, No fundi, disc, No other ENMT: nl lips & teeth, nl nasal mucosa & septum, mucosa pink and moist, tympanic membranes; No nl external ears & nose, No intubated, No other Neck: supple, jvd, bruits; No non-tender, No masses, No thyromegaly, No nuchal rigidity, No other Respiratory: clear to auscultation, normal air movement, diminished breath sounds; No congested cough, No crackles/rales, No intercostal retraction, No labored breathing, No respirations, No tactile fremitus, No wheezing, No other Cardiovascular: regular rate and rhythm, edema; No nl pulses, No bruits, No diastolic murmur, No gallop, No irregular rhythm, No jugular venous distention (JVD), No murmurs/extra sounds, No rub, No systolic murmur, No S3, No S4, No other Gastrointestinal: soft, nl liver, spleen, bowel sounds, distended; No non-tender, No ascites, No firm, No hepatomegaly, No mass, No rebound or guarding, No splenomegaly, No surgical scars, No tender, No other Musculoskeletal: nl gait and stance, joint tenderness, muscle tone, muscle weakness; No nl extremities to inspection, No range of motion, No spine non-tender, No swelling, No other Medications Medication Current Medications Acetaminophen (Tylenol Tab) 500 mg Q6H PRN PO MILD PAIN(1-3)OR ELEVATED TEMP [place] [facility] administered on 09/20/18 22:55; Admin Dose 500 MG; Start 09/09/18 at 22:30 Anastrozole (Arimidex) 1 mg DAILY PO Last administered on 09/22/18 09:06; Admin Dose 1 MG; Start 09/10/18 at 09:00 Carvedilol (Coreg) 3.125 mg BID PO Last administered on 09/21/18 09:02; Admin Dose 3.125 MG; Start 09/09/18 at 22:30 Docusate Sodium (Colace) 200 mg BID PO Last administered on 09/22/18 09:03; Admin Dose 200 MG; Start 09/09/18 at 22:30 Escitalopram Oxalate (Lexapro) 10 mg DAILY PO Last administered on 09/22/18 09: 03; Admin Dose 10 MG; Start 09/10/18 at 09:00 Magnesium Hydroxide (Milk Of Mag) 30 ml DAILY PO Last administered on 09/22/18 09:03; Admin Dose 30 ML; Start 09/10/18 at 09:00 Ondansetron HCl (Zofran Tab) 4 mg Q6H PRN PO NAUSEA AND/OR VOMITING Last administered on 09/20/18 08:37; Admin Dose 4 MG; Start 09/09/18 at 22:30 Pantoprazole (Protonix Tab) 40 mg AC BREAKFAST PO Last administered on 09/22/18 05:09; Admin Dose 40 MG; Start 09/10/18 at 07:00 Polyethylene Glycol (Miralax) 17 gm BID PO Last administered on 09/22/18 09:03; Admin Dose 17 GM; Start 09/09/18 at 22:30 Furosemide (Lasix) 40 mg BID DIURETICS IV Last administered on 09/21/18 18:00; Admin Dose 40 MG; Start 09/11/18 at 19:09 Metolazone (Zaroxolyn) 2.5 mg BID PO Last administered on 09/22/18 10:19; Admin Dose 2.5 MG; Start 09/13/18 at 05:30 Spironolactone (Aldactone) 50 mg DAILY PO Last administered on 09/22/18 09:03; Admin Dose 50 MG; Start 09/13/18 at 18:00 Potassium Chloride (Klor-Con 20) 20 meq BID PO Last administered on 09/22/18 09:03; Admin Dose 20 MEQ; Start 09/15/18 at 21:00 Albuterol/ Ipratropium (Duoneb) 3 ml Q8H RESP THERAPY PRN HHN SHORTNESS OF BREATH Last administered on 09/15/18 16:09; Admin Dose 3 ML; Start 09/15/18 at 14:30 Ondansetron HCl (Zofran Inj) 4 mg Q6H PRN IV NAUSEA AND/OR VOMITING Last administered on 09/22/18 05:09; Admin Dose 4 MG; Start 09/15/18 at 14:30 Oxycodone HCl (Oxycontin) 20 mg Q12 PO Last administered on 09/22/18 09:10; Admin Dose 20 MG; Start 09/15/18 at 21:00 Olopatadine HCl (Patanol 0.1% Oph) 1 drop BID BOTH EYES Last administered on 09/22/18at 09:10; Admin Dose 1 DROP; Start 09/16/18 at 21:00 Loratadine (Claritin) 10 mg DAILY PO Last administered on 09/22/18at 09:03; Admin Dose 10 MG; Start 09/17/18 at 09:00 RUSS JEROME MD Sep 22, 2018 13:32
--- NOTE | 2018-09-22 14:51 | CONS ---
Assessment/Plan Assessment/Plan Hospital Course (Demo Recall) IMPRESSION: 1. Congestive heart failure exacerbation, diastolic by most recent echo, acute on chronic.-neg trop x 3. Echo this admit EF 60/small pericardia effusion 2. Hypotension, currently low 3. Anasarca. 4. Metastatic breast carcinoma. 5. Leukopenia. 6. Thrombocytopenia.-ongoing 7. Pericardial effusion-small by echo with no HD consequence at this time Recc: -On med-surg -Continue Lasix diuresis but will decrease to daily and hold metolazone given decreasing NA -folllow K clsoely now on standing repletion BID and aldactone -S/p IV albumin infusion x 3 -Continue arimidex -coreg as tolerated only Consultation Date/Type/Reason Admit Date/Time Sep 09, 2018 at 14:53 Initial Consult Date 09/09/18 Type of Consult Cardiology Reason for Consultation CHF Requesting Provider: RUSS JEROME MD Date/Time of Note DATE: 09/22/18 TIME: 14:49 Exam/Review of Systems Vital Signs Vitals Vital Signs Date Temp Pulse Resp B/P (MAP) Pulse Ox O2 O2 Flow FiO2 Time Delivery Rate 09/22/18 Nasal 2.0 08:00 Cannula 09/22/18 98.1 86 16 95/51 (66) 99 07:24 Intake and Output 09/21/18 09/21/18 09/22/18 1515:00 23:00 07:00 IntakeIntake Total 680 ml BalanceBalance 680 ml Exam Exam Review of Systems: CONSTITUTIONAL: No fevers, chills. PULMONARY: No sob CARDIOVASCULAR: No chest pain/palpitations GASTROINTESTINAL: No nausea/vomiting. GENITOURINARY: No hematuria/dysuria. MUSCULOSKELETAL: No myagias/arthalgias. PSYCHIATRIC: The patient denies depression. NEUROLOGIC: No weakness Constitutional: alert, oriented Psych: no complaints Head: normocephalic ENMT: mucosa pink and moist Neck: supple, jvd (9 cm water) Respiratory: diminished breath sounds (at bases/B) Cardiovascular: regular rate and rhythm Gastrointestinal: soft, non-tender Musculoskeletal: muscle tone (normal) Extremities: edema (none in LE), other (UE with ongoing edema L side) Medications Medications Current Medications Acetaminophen (Tylenol Tab) 500 mg Q6H PRN PO MILD PAIN(1-3)OR ELEVATED TEMP Last administered on 09/20/18 22:55; Admin Dose 500 MG; Start 09/09/18 at 22:30 Anastrozole (Arimidex) 1 mg DAILY PO Last administered on 09/22/18 09:06; Admin Dose 1 MG; Start 09/10/18 at 09:00 Carvedilol (Coreg) 3.125 mg BID PO Last administered on 09/21/18 09:02; Admin Dose 3.125 MG; Start 09/09/18 at 22:30 Docusate Sodium (Colace) 200 mg BID PO Last administered on 09/22/18 09:03; Admin Dose 200 MG; Start 09/09/18 at 22:30 Escitalopram Oxalate (Lexapro) 10 mg DAILY PO Last administered on 09/22/18 09:03; Admin Dose 10 MG; Start 09/10/18 at 09:00 Magnesium Hydroxide (Milk Of Mag) 30 ml DAILY PO Last administered on 09/22/18 09:03; Admin Dose 30 ML; Start 09/10/18 at 09:00 Ondansetron HCl (Zofran Tab) 4 mg Q6H PRN PO NAUSEA AND/OR VOMITING Last administered on 09/20/18 08:37; Admin Dose 4 MG; Start 09/09/18 at 22:30 Pantoprazole (Protonix Tab) 40 mg AC BREAKFAST PO Last administered on 09/22/18 05:09; Admin Dose 40 MG; Start 09/10/18 at 07:00 Polyethylene Glycol (Miralax) 17 gm BID PO Last administered on 09/22/18 09:03; Admin Dose 17 GM; Start 09/09/18 at 22:30 Furosemide (Lasix) 40 mg BID DIURETICS IV Last administered on 09/21/18 18:00; Admin Dose 40 MG; Start 09/11/18 at 19:09 Metolazone (Zaroxolyn) 2.5 mg BID PO Last administered on 09/22/18 10:19; Admin Dose 2.5 MG; Start 09/13/18 at 05:30 Spironolactone (Aldactone) 50 mg DAILY PO Last administered on 09/22/18 09:03; Admin Dose 50 MG; Start 09/13/18 at 18:00 Potassium Chloride (Klor-Con 20) 20 meq BID PO Last administered on 09/22/18 09:03; Admin Dose 20 MEQ; Start 09/15/18 at 21:00 Albuterol/ Ipratropium (Duoneb) 3 ml Q8H RESP THERAPY PRN HHN SHORTNESS OF BREATH Last administered on 09/15/18 16:09; Admin Dose 3 ML; Start 09/15/18 at 14:30 Ondansetron HCl (Zofran Inj) 4 mg Q6H PRN IV NAUSEA AND/OR VOMITING Last administered on 09/22/18 05:09; Admin Dose 4 MG; Start 09/15/18 at 14:30 Oxycodone HCl (Oxycontin) 20 mg Q12 PO Last administered on 09/22/18 09:10; A dmin Dose 20 MG; Start 09/15/18 at 21:00 Olopatadine HCl (Patanol 0.1% Oph) 1 drop BID BOTH EYES Last administered on 09/22/18 09:10; Admin Dose 1 DROP; Start 09/16/18 at 21:00 Loratadine (Claritin) 10 mg DAILY PO Last administered on 09/22/18 09:03; Admin Dose 10 MG; Start 09/17/18 at 09:00 KAMILA TERESA Sep 22, 2018 14:51
[2018-09-22 15:11] VITALS: BP 122/72; PULSE 96; RESP 16
[2018-09-22 20:05] VITALS: BP 120/59; PULSE 92; RESP 18
--- NOTE | 2018-09-23 00:25 | DS ---
Date/Time of Note Date/Time of Note DATE: 09/23/18 TIME: 00:22 Discharge Summary Admission/Discharge Info Admit Date/Time Sep 09, 2018 at 14:53 Discharge Date/Time September 232018 at 11am. Discharge Diagnosis 1. Cancer of the left breast. Exact type at this time unknown.MULTIPLE BONY METS, PULMONARY METS 2. Severe pain in the interscapular and lumbar sacral area most probably metastatic lesion possible femoral fracture. pathologic fracture of T9 with 60% of loss of height. Neurosurgical f/u. 3. Obesity. 4. Weight loss 60 pounds during the last 2 years by diet 5. PMS. 6. Myopia. 7. Anemia chronic disease with a drop of her hematocrit to 27 and regaining to 30 without any measures. Latest results 28. Protonix was added. Today hematocrit is 26. Will recheck tomorrow 8. Anxiety disorder. Claustrophobia. Increase Ativan to 1 mg every 8 as needed at Lexapro 10 mg daily. 9. Posttraumatic stress disorder. 10. Pain in the left forearm with a history of fracture of ulna and radius. 11. Tachycardia 12. Hypoxemia at night marginal improved after 2 L of nasal cannula oxygen. 13. Deconditioning 14. 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 15. Pain syndrome. Today the most painful zone is in the right hip area. X- ray did not show any fractures. 16. Hyponatremia-persists; hypokalemia after massive diuresis. 17. Leucopenia-improved. 18. Neutropenia with occasional fever and chills. Last chemotherapy 5 days ago. 19. Hypoalbuminemia. 20.Right sided cp after catheter insertion and correction less discomfort. 21. Decreased edema both lower extremities with hypotension-improving 22.Swelling of the left forearm-persist. Now with erythema involving mainly the dorsum of the left upper extremity. 23.bilateral pleural effusions ; plan to perform tap tomorrow morning preferably from the left side done twice during this admission almost 1 L was evacuated to the first time and almost half a liter on 09/18/2018. 24. Systolic over diastolic congestive heart failure with a right more than left lower extremity swelling with no DVT in latest venous Doppler. 25. Pain syndrome Patient Condition: Guarded Hx of Present Illness Worsening of her shortness of breath. Right more than left lower extremity edema last 3 days getting more shortness of breath and having tachycardia being unable to lay down last night with heart rate reaching more than 110 bpm. After discussion with oncologist decided to transfer the patient to hospital for further evaluation and treatment. And asked the emergency room to perform a left thoracentesis as soon as possible with plan thoracentesis today to the right side. The patient continues to be in the pain with the worsening of the edema of the left breast extremity with redness. She was unable to eat last 3-4 days she lost appetite become more depressed sleepless and depending on pain medications. Hospital Course S/p thoracentesis with re-occumulation of fluid. Will repeat CXR AND THEN D/C. Home Meds Reported Medications Potassium Chloride* (Potassium Chloride*) 20 Meq Tablet.er, 20 MEQ PO DAILY, TAB.SA 09/09/18 Epoetin Cr (Procrit) 4,000 Unit/1 Ml Vial, 4000 UNIT IJ Q FRI, VIAL 7:00AM-7:00PM,HOLD IF HGB>10 09/09/18 Ondansetron Hcl* (Zofran*) 4 Mg Tab, 4 MG PO Q6H PRN for NAUSEA AND OR VOMITING, TAB 08/22/18 Pantoprazole* (Pantoprazole*) 40 Mg Tablet.dr, 40 MG PO AC BREAKFAST, TAB 08/22/18 Oxycodone Hcl* (Oxycontin*) 20 Mg Tab.er.12h, 20 MG PO Q12, TAB 08/22/18 Amlodipine Besylate* (Norvasc*) 5 Mg Tablet, 5 MG PO BID, TAB HOLD FOR SBP <110. 08/22/18 Polyethylene Glycol* (Miralax*) 17 Gm Powd.pack, 17 GM PO BID, #60 PACKET ON -12:00 TO 4:00PM 08/22/18 Magnesium Hydroxide* (Milk Of Magnesia*) 400 Mg/5 Ml Oral.susp, 30 ML PO DAILY, ML 08/22/18 Escitalopram Oxalate* (Lexapro*) 10 Mg Tablet, 10 MG PO DAILY, #30 TAB 08/22/18 Furosemide* (Furosemide*) 20 Mg Tablet, 20 MG PO DAILY, #60 TAB HOLD FOR SBP <110. 08/22/18 Docusate Sodium* (Colace*) 100 Mg Capsule, 200 MG PO BID, #60 CAP 08/22/18 Carvedilol* (Carvedilol*) 3.125 Mg Tablet, 3.125 MG PO BID, #60 TAB HOLD FOR SBP <110 OR [place] <60. GIVE WITH FOOD. 08/22/18 Lactose-Free Food (Boost High Protein) 237 Ml Liquid, 120 ML PO BID 08/22/18 Benazepril Hcl* (Benazepril Hcl*) 5 Mg Tablet, 5 MG PO BID, #60 TAB HOLD FOR SBP <110. 08/22/18 Anastrozole* (Arimidex*) 1 Mg Tablet, 1 MG PO DAILY, #30 TAB 08/22/18 Acetaminophen* (Acetaminophen*) 500 MG Extra Strength Tablet, 500 MG PO Q6H PRN for PAIN AND OR ELEVATED TEMP, TAB 08/22/18 Follow-up Plan [facility] by primary care physician in [address] Primary Care Provider MD JUSTUS Dodd VAGHARSHAK MD Sep 23, 2018 00:25
[2018-09-23 07:36] VITALS: BP 110/62; PULSE 88; RESP 19
[2018-09-23] MEDS: SPIRONOLACTONE 50 MG TAB PO SCH (08:57)
[2018-09-23] MEDS: LORATADINE 10 MG TAB PO SCH (08:57)
[2018-09-23] MEDS: MAGNESIUM HYDROXIDE 30ML CUP PO SCH (08:57)
[2018-09-23] MEDS: ESCITALOPRAM 10 MG TAB PO SCH (08:57)
[2018-09-23] MEDS: DOCUSATE SODIUM 100 MG CAP PO SCH ×2 (08:57→21:34)
[2018-09-23] MEDS: OLOPATADINE 0.1% 5 ML OPH BOTH EYES SCH ×2 (08:58→21:35)
[2018-09-23] MEDS: POTASSIUM CHLORIDE (SR) 20 MEQ TAB PO SCH ×2 (08:58→21:34)
[2018-09-23] MEDS: PANTOPRAZOLE (EC) 40 MG TAB PO SCH (08:58)
[2018-09-23] MEDS ORDERED: FUROSEMIDE 40 MG INJ IV SCH (09:00)
[2018-09-23] MEDS: POLYETHYLENE GLYCOL 17 GM PACKET PO SCH ×2 (09:00→21:35)
[2018-09-23] MEDS: ANASTROZOLE 1 MG TAB PO SCH (09:00)
[2018-09-23] MEDS: oxyCODONE (CR) 10 MG TAB [oxyCONTIN] PO SCH ×2 (09:04→21:35)
[2018-09-23 14:51] VITALS: BP 97/58; PULSE 89; RESP 19
--- NOTE | 2018-09-23 17:01 | CONS ---
Assessment/Plan Assessment/Plan Hospital Course (Demo Recall) IMPRESSION: 1. Congestive heart failure exacerbation, diastolic by most recent echo, acute on chronic.-neg trop x 3. Echo this admit EF 60/small pericardia effusion 2. Hypotension, currently low 3. Anasarca. 4. Metastatic breast carcinoma. 5. Leukopenia. 6. Thrombocytopenia.-ongoing 7. Pericardial effusion-small by echo with no HD consequence at this time Recc: -On med-surg -Continue Lasix diuresis noew daily and check baseline electrolytes -folllow K clsoely now on standing repletion BID and aldactone -S/p IV albumin infusion x 3 -Continue arimidex -coreg as tolerated only -s/p D/C of benazepril due to low BP Consultation Date/Type/Reason Admit Date/Time Sep 09, 2018 at 14:53 Initial Consult Date 09/09/18 Type of Consult Cardiology Reason for Consultation CHF Requesting Provider: RUSS JEROME MD Date/Time of Note DATE: 09/23/18 TIME: 16:59 Exam/Review of Systems Vital Signs Vitals Vital Signs Date Temp Pulse Resp B/P (MAP) Pulse Ox O2 O2 Flow FiO2 Time Delivery Rate 09/23/18 97.2 89 19 97/58 (71) 98 14:51 09/23/18 Nasal 2.0 08:35 Cannula Intake and Output 09/22/18 09/22/18 09/23/18 1414:59 22:59 06:59 IntakeIntake Total 300 ml 500 ml BalanceBalance 300 ml 500 ml Exam Exam Review of Systems: CONSTITUTIONAL: No fevers, chills. PULMONARY: No sob CARDIOVASCULAR: No chest pain/palpitations GASTROINTESTINAL: No nausea/vomiting. GENITOURINARY: No hematuria/dysuria. MUSCULOSKELETAL: No myagias/arthalgias. PSYCHIATRIC: The patient denies depression. NEUROLOGIC: No weakness Constitutional: alert Psych: no complaints Head: normocephalic ENMT: mucosa pink and moist Neck: supple, jvd (9 cm water) Respiratory: diminished breath sounds (at bases/B) Cardiovascular: regular rate and rhythm Gastrointestinal: soft, non-tender Musculoskeletal: muscle tone (normal) Extremities: edema (none in LE bilateral but persistent in LUE) 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: other (No focal deficits) Medications Medications Current Medications Acetaminophen (Tylenol Tab) 500 mg Q6H PRN PO MILD PAIN(1-3)OR ELEVATED TEMP Last administered on 09/20/18 22:55; Admin Dose 500 MG; Start 09/09/18 at 22:30 Anastrozole (Arimidex) 1 mg DAILY PO Last administered on 09/23/18 09:00; Admin Dose 1 MG; Start 09/10/18 at 09:00 Carvedilol (Coreg) 3.125 mg BID PO Last administered on 09/23/18 08:59; Admin Dose 3.125 MG; Start 09/09/18 at 22:30 Docusate Sodium (Colace) 200 mg BID PO Last administered on 09/23/18 08:57; Admin Dose 200 MG; Start 09/09/18 at 22:30 Escitalopram Oxalate (Lexapro) 10 mg DAILY PO Last administered on 09/23/18 08:57; Admin Dose 10 MG; Start 09/10/18 at 09:00 Magnesium Hydroxide (Milk Of Mag) 30 ml DAILY PO Last administered on 09/23/18 08:57; Admin Dose 30 ML; Start 09/10/18 at 09:00 Ondansetron HCl (Zofran Tab) 4 mg Q6H PRN PO NAUSEA AND/OR VOMITING Last administered on 09/20/18 08:37; Admin Dose 4 MG; Start 09/09/18 at 22:30 Pantoprazole (Protonix Tab) 40 mg AC BREAKFAST PO Last administered on 09/23/18 08:58; Admin Dose 40 MG; Start 09/10/18 at 07:00 Polyethylene Glycol (Miralax) 17 gm BID PO Last administered on 09/22/18 21:24; Admin Dose 17 GM; Start 09/09/18 at 22:30 Spironolactone (Aldactone) 50 mg DAILY PO Last administered on 09/23/18 08:57; Admin Dose 50 MG; Start 09/13/18 at 18:00 Potassium Chloride (Klor-Con 20) 20 meq BID PO Last administered on 09/23/18 08:58; Admin Dose 20 MEQ; Start 09/15/18 at 21:00 Albuterol/ Ipratropium (Duoneb) 3 ml Q8H RESP THERAPY PRN HHN SHORTNESS OF BREATH Last administered on 09/15/18 16:09; Admin Dose 3 ML; Start 09/15/18 at 14:30 Ondansetron HCl (Zofran Inj) 4 mg Q6H PRN IV NAUSEA AND/OR VOMITING Last administered on 09/22/18 05:09; Admin Dose 4 MG; Start 09/15/18 at 14:30 Oxycodone HCl (Oxycontin) 20 mg Q12 PO Last administered on 09/23/18 09:04; Admin Dose 20 MG; Start 09/15/18 at 21:00 Olopatadine HCl (Patanol 0.1% Oph) 1 drop BID BOTH EYES Last administered on 09/23/18 08:58; Admin Dose 1 DROP; Start 09/16/18 at 21:00 Loratadine (Claritin) 10 mg DAILY PO Last administered on 09/23/18 08:57; Admin Dose 10 MG; Start 09/17/18 at 09:00 Furosemide (Lasix) 40 mg DAILY IV Last administered on 09/23/18 09:00; Admin Dose 40 MG; Start 09/23/18 at 09:00 KAMILA TERESA Sep 23, 2018 17:01
[2018-09-23] MEDS: FUROSEMIDE 40 MG INJ IV SCH (18:46)
[2018-09-23 20:42] VITALS: BP 110/58; PULSE 88; RESP 18
--- NOTE | 2018-09-23 21:06 | PN ---
Date/Time of Note Date/Time of Note DATE: 09/23/18 TIME: 21:03 Assessment/Plan VTE Prophylaxis Risk score (from Nsg)>0 risk: 6 SCD applied (from Ns): No SCD contraindicated: low risk/ambulating Pharmacological prophylaxis: LMWH Lines/Catheters IV Catheter Type (from Nrsg): Peripheral IV Central line still needed: No Urinary Cath still in place: No Assessment/Plan Hospital Course S/p thoracentesis with re-occumulation of fluid. Will repeat CXR AND THEN D/C. Assessment/Plan 1. Cancer of the left breast. Exact type at this time unknown.MULTIPLE BONY METS, PULMONARY METS 2. Severe pain in the interscapular and lumbar sacral area most probably metastatic lesion possible femoral fracture. pathologic fracture of T9 with 60% of loss of height. Neurosurgical f/u. 3. Obesity. 4. Weight loss 60 pounds during the last 2 years by diet 5. PMS. 6. Myopia. 7. Anemia chronic disease with a drop of her hematocrit to 27 and regaining to 30 without any measures. Latest results 28. Protonix was added. Today hematocrit is 26. Will recheck tomorrow 8. Anxiety disorder. Claustrophobia. Increase Ativan to 1 mg every 8 as needed at Lexapro 10 mg daily. 9. Posttraumatic stress disorder. 10. Pain in the left forearm with a history of fracture of ulna and radius. 11. Tachycardia 12. Hypoxemia at night marginal improved after 2 L of nasal cannula oxygen. 13. Deconditioning 14. 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 15. Pain syndrome. Today the most painful zone is in the right hip area. X- ray did not show any fractures. 16. Hyponatremia-persists; hypokalemia after massive diuresis. 17. Leucopenia-improved. 18. Neutropenia with occasional fever and chills. Last chemotherapy 5 days ago. 19. Hypoalbuminemia. 20.Right sided cp after catheter insertion and correction less discomfort. 21. Decreased edema both lower extremities with hypotension-improving 22.Swelling of the left forearm-persist. Now with erythema involving mainly the dorsum of the left upper extremity. 23.bilateral pleural effusions ; plan to perform tap tomorrow morning preferably from the left side done twice during this admission almost 1 L was evacuated to the first time and almost half a liter on 09/18/2018. 24. Systolic over diastolic congestive heart failure with a right more than left lower extremity swelling with no DVT in latest venous Doppler. 25. Pain syndrome Result Diagram: 09/23/18 1725 Results 24hrs Laboratory Tests Test 09/23/18 17:25 Sodium Level 130 L Potassium Level 3.6 Chloride Level 83 L Carbon Dioxide Level 38 H Anion Gap 9 Blood Urea Nitrogen 34 H Creatinine 0.86 Est Glomerular Filtrat Rate mL/min > 60 Glucose Level 114 Calcium Level 8.5 Exam/Review of Systems Exam Vitals Vital Signs Date Temp Pulse Resp B/P (MAP) Pulse Ox O2 O2 Flow FiO2 Time Delivery Rate 09/23/18 98.3 88 18 110/58 91 20:42 (75) 09/23/18 Nasal 2.0 08:35 Cannula Intake and Output 09/22/18 09/22/18 09/23/18 1515:00 23:00 07:00 IntakeIntake Total 300 ml 500 ml BalanceBalance 300 ml 500 ml Constitutional: alert, oriented, well developed, distress Psych: anxiety, depression; No no complaints, No nl mood/affect, No confusion, No suicidal, No other Head: normocephalic, atraumatic; No lacerations, No hematomas, No other Eyes: EOMI, nl lids, PERRL; No nl conjunctiva, No nl sclera, No icteric, No fundi, disc, No other ENMT: No nl external ears & nose, No nl lips & teeth, No nl nasal mucosa & septum, No mucosa pink and moist, No intubated, No tympanic membranes, No other Neck: jvd, bruits, masses, nuchal rigidity; No supple, No non-tender, No thyromegaly, No other Respiratory: clear to auscultation, normal air movement, congested cough, diminished breath sounds; No crackles/rales, No intercostal retraction, No labored breathing, No respirations, No tactile fremitus, No wheezing, No other Cardiovascular: bruits; No regular rate and rhythm, No nl pulses, No diastolic murmur, No edema, No gallop, No irregular rhythm, No jugular venous distention (JVD), No murmurs/extra sounds, No rub, No systolic murmur, No S3, No S4, No other Gastrointestinal: soft, bowel sounds, distended; No nl liver, spleen, No non-tender, No ascites, No firm, No hepatomegaly, No mass, No rebound or guarding, No splenomegaly, No surgical scars, No tender, No other Genitourinary - Female: nl adnexae, nl external genitalia; No CMT, No CVA tenderness, No uterus, No other Musculoskeletal: joint tenderness, muscle tone, muscle weakness; No nl extremities to inspection, No nl gait and stance, No range of motion, No spine non-tender, No swelling, No other Extremities: normal pulses; No calf tenderness, No cyanosis, No clubbing, No edema, No pitting pedal edema, No palpable cord, No tenderness, No other 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: ENAMEL DRIER 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, confused, numbness; No nl mental status, No nl speech, No nl strength, No DTR's symmetric, No focal weakness, No lethargic, No reflexes, No unresponsive, No other Results Results 24hrs Laboratory Tests Test 09/23/18 17:25 Sodium Level 130 L Potassium Level 3.6 Chloride Level 83 L Carbon Dioxide Level 38 H Anion Gap 9 Blood Urea Nitrogen 34 H Creatinine 0.86 Est Glomerular Filtrat Rate mL/min > 60 Glucose Level 114 Calcium Level 8.5 Medications Medication Current Medications Acetaminophen (Tylenol Tab) 500 mg Q6H PRN PO MILD PAIN(1-3)OR ELEVATED TEMP Last administered on 09/20/18 22:55; Admin Dose 500 MG; Start 09/09/18 at 22:30 Anastrozole (Arimidex) 1 mg DAILY PO Last administered on 09/23/18 09:00; Admin Dose 1 MG; Start 09/10/18 at 09:00 Carvedilol (Coreg) 3.125 mg BID PO Last administered on 09/23/18 08:59; Admin Dose 3.125 MG; Start 09/09/18 at 22:30 Docusate Sodium (Colace) 200 mg BID PO Last administered on 09/23/18 08:57; Admin Dose 200 MG; Start 09/09/18 at 22:30 Escitalopram Oxalate (Lexapro) 10 mg DAILY PO Last administered on 09/23/18 08:57; Admin Dose 10 MG; Start 09/10/18 at 09:00 Magnesium Hydroxide (Milk Of Mag) 30 ml DAILY PO Last administered on 09/23/18 08:57; Admin Dose 30 ML; Start 09/10/18 at 09:00 Ondansetron HCl (Zofran Tab) 4 mg Q6H PRN PO NAUSEA AND/OR VOMITING Last administered on 09/20/18 08:37; Admin Dose 4 MG; Start 09/09/18 at 22:30 Pantoprazole (Protonix Tab) 40 mg AC BREAKFAST PO Last administered on 09/23/18 08:58; Admin Dose 40 MG; Start 09/10/18 at 07:00 Polyethylene Glycol (Miralax) 17 gm BID PO Last administered on 09/22/18 21:24; Admin Dose 17 GM; Start 09/09/18 at 22:30 Spironolactone (Aldactone) 50 mg DAILY PO Last administered on 09/23/18 08:57; Admin Dose 50 MG; Start 09/13/18 at 18:00 Potassium Chloride (Klor-Con 20) 20 meq BID PO Last administered on 09/23/18 08:58; Admin Dose 20 MEQ; Start 09/15/18 at 21:00 Albuterol/ Ipratropium (Duoneb) 3 ml Q8H RESP THERAPY PRN HHN SHORTNESS OF BREATH Last administered on 09/15/18 16:09; Admin Dose 3 ML; Start 09/15/18 at 14:30 Ondansetron HCl (Zofran Inj) 4 mg Q6H PRN IV NAUSEA AND/OR VOMITING Last administered on 09/22/18 05:09; Admin Dose 4 MG; Start 09/15/18 at 14:30 Oxycodone HCl (Oxycontin) 20 mg Q12 PO Last administered on 09/23/18 09:04; Ad min Dose 20 MG; Start 09/15/18 at 21:00 Olopatadine HCl (Patanol 0.1% Oph) 1 drop BID BOTH EYES Last administered on 09/23/18 08:58; Admin Dose 1 DROP; Start 09/16/18 at 21:00 Loratadine (Claritin) 10 mg DAILY PO Last administered on 09/23/18 08:57; Admin Dose 10 MG; Start 09/17/18 at 09:00 Furosemide (Lasix) 40 mg BID DIURETICS IV Last administered on 09/23/18 18:46; Admin Dose 40 MG; Start 09/23/18 at 18:00 RUSS JEROME MD Sep 23, 2018 21:06
--- NOTE | 2018-09-23 23:47 | CONS ---
Assessment/Plan Assessment/Plan Hospital Course (Demo Recall) METASTATIC BREAST CANCER WITH PRIMARY ADENOCARCINOMA IN the left breast. MULTIPLE BONY METS, PULMONARY METS, LIVER METS CHEMO ON HOLD PT HAS A VERY GOOD RESPONSE TO CHEMO AND AI CONT AI FOR NOW CT ABD FOR RESTAGING 08.27.18- noted , stable CT CHEST- STABLE/IMPROVING 1. Moderate bilateral pleural effusions with adjacent lung base consolidation/atelectasis. 2. Moderate pericardial effusion. 3. Decreased size of previously prominent mediastinal lymph nodes. Decreased size of sub centimeter axillary lymph nodes. 4. Stable nonspecific pulmonary nodules as described above. 5. Stable soft tissue nodule of the anterior left chest wall/breast. 6. Redemonstrated diffuse sclerotic metastatic osseous lesions with stable compression deformities of the thoracic spine. 7. Nodular contour of the liver with multiple hypoattenuating masses, grossly similar to prior exam. CYTOLOGY-NEG CARD - TO MONITOR FOR PERICARDIAL TAMPONADE, FOR NOW NO NEED TO DO PERICARDIOCENTESIS Leucopenia- post chemo NEUPOGEN- DC monitor closely post Neutropenia with occasional fever and chills. Anemia chronic disease SOB PLEURAL EFFUSIONS post thoracentesis cytology -NEG ON 09.18.18 Fluid overload diuretic cardiology F-UP Congestive heart failure exacerbation, diastolic by most recent echo, acute on chronic.-neg trop x 3. Echo this admit EF 60/small pericardia effusion Hypotension, currently borderline-overall improved Anasarca. Severe pain in the interscapular and lumbar sacral area most probably metastatic lesion possible femoral fracture. pathologic fracture of T9 with 60% of loss of height. Obesity. Weight loss 60 pounds during the last 2 years PMS. Myopia. Anxiety disorder. Claustrophobia. Posttraumatic stress disorder. Pain in the left forearm with a history of fracture of ulna and radius. Tachycardia Hypoxemia at night marginal improved after 2 L of nasal cannula oxygen. Deconditioning Pain syndrome. Today the most painful zone is in the right hip area. X-ray did not show any fractures. Hyponatremia- resolved Hypoalbuminemia Right sided cp after catheter insertion and correction less discomfort. Decreased edema both lower extremities with hypotension-improving Swelling of the left forearm-persist. Consultation Date/Type/Reason Admit Date/Time Sep 09, 2018 at 14:53 Initial Consult Date 09/09/18 Type of Consult [facility] Requesting Provider: RUSS JEROME MD Date/Time of Note DATE: 09/23/18 TIME: 23:47 24 HR Interval Summary Free Text/Dictation D/W PT AND RN Exam/Review of Systems Exam Vitals Vital Signs Date Temp Pulse Resp B/P (MAP) Pulse Ox O2 O2 Flow FiO2 Time Delivery Rate 09/23/18 98.3 88 18 110/58 91 20:42 (75) 09/23/18 Nasal 2.0 08:35 Cannula Intake and Output 09/22/18 09/22/18 09/23/18 1414:59 22:59 06:59 IntakeIntake Total 300 ml 500 ml BalanceBalance 300 ml 500 ml Exam Constitutional: alert, oriented, well developed, distress, frail Psych: anxiety, depression; No no complaints, No nl mood/affect, No confusion, No suicidal, No other Head: normocephalic, atraumatic Eyes: EOMI, nl lids; No nl conjunctiva, No nl sclera, No PERRL, No icteric, No fundi, disc, No other ENMT: No nl external ears & nose, No nl lips & teeth, No nl nasal mucosa & septum, No mucosa pink and moist, No intubated, No tympanic membranes, No other Neck: supple, jvd, bruits; No non-tender, No masses, No thyromegaly, No nuchal rigidity, No other Respiratory: congested cough, diminished breath sounds (Left more prominent than the right side.); No clear to auscultation, No normal air movement, No crackles/rales, No intercostal retraction, No labored breathing, No respirations, No tactile fremitus, No wheezing, No other Cardiovascular: No regular rate and rhythm, No nl pulses, No bruits, No diastolic murmur, No edema, No gallop, No irregular rhythm, No jugular venous distention (JVD), No murmurs/extra sounds, No rub, No systolic murmur, No S3, No S4, No other Gastrointestinal: soft, nl liver, spleen, distended Extremities: edema (Left upper extremity more prominent in the right.), LE BL Results Result Diagram: 09/23/18 8384 Results 24hrs Laboratory Tests Test 09/23/18 17:25 Sodium Level 130 L Potassium Level 3.6 Chloride Level 83 L Carbon Dioxide Level 38 H Anion Gap 9 Blood Urea Nitrogen 34 H Creatinine 0.86 Est Glomerular Filtrat Rate mL/min > 60 Glucose Level 114 Calcium Level 8.5 Medications Medication Current Medications Acetaminophen (Tylenol Tab) 500 mg Q6H PRN PO MILD PAIN(1-3)OR ELEVATED TEMP Last administered on 09/20/18 22:55; Admin Dose 500 MG; Start 09/09/18 at 22:30 Anastrozole (Arimidex) 1 mg DAILY PO Last administered on 09/23/18 09:00; Admin Dose 1 MG; Start 09/10/18 at 09:00 Carvedilol (Coreg) 3.125 mg BID PO Last administered on 09/23/18 21:36; Admin Dose 3.125 MG; Start 09/09/18 at 22:30 Docusate Sodium (Colace) 200 mg BID PO Last administered on 09/23/18 21:34; Admin Dose 200 MG; Start 09/09/18 at 22:30 Escitalopram Oxalate (Lexapro) 10 mg DAILY PO Last administered on 09/23/18 08:57; Admin Dose 10 MG; Start 09/10/18 at 09:00 Magnesium Hydroxide (Milk Of Mag) 30 ml DAILY PO Last administered on 09/23/18 08:57; Admin Dose 30 ML; Start 09/10/18 at 09:00 Ondansetron HCl (Zofran Tab) 4 mg Q6H PRN PO NAUSEA AND/OR VOMITING Last administered on 09/20/18 08:37; Admin Dose 4 MG; Start 09/09/18 at 22:30 Pantoprazole (Protonix Tab) 40 mg AC BREAKFAST PO Last administered on 09/23/18 08:58; Admin Dose 40 MG; Start 09/10/18 at 07:00 Polyethylene Glycol (Miralax) 17 gm BID PO Last administered on 09/23/18 21:35; Admin Dose 17 GM; Start 09/09/18 at 22:30 Spironolactone (Aldactone) 50 mg DAILY PO Last administered on 09/23/18 08:57; Admin Dose 50 MG; Start 09/13/18 at 18:00 Potassium Chloride (Klor-Con 20) 20 meq BID PO Last administered on 09/23/18 21:34; Admin Dose 20 MEQ; Start 09/15/18 at 21:00 Albuterol/ Ipratropium (Duoneb) 3 ml Q8H RESP THERAPY PRN HHN SHORTNESS OF BREATH Last administered on 09/15/18 16:09; Admin Dose 3 ML; Start 09/15/18 at 14:30 Ondansetron HCl (Zofran Inj) 4 mg Q6H PRN IV NAUSEA AND/OR VOMITING Last admi nistered on 09/22/18 05:09; Admin Dose 4 MG; Start 09/15/18 at 14:30 Oxycodone HCl (Oxycontin) 20 mg Q12 PO Last administered on 09/23/18 21:35; Admin Dose 20 MG; Start 09/15/18 at 21:00 Olopatadine HCl (Patanol 0.1% Oph) 1 drop BID BOTH EYES Last administered on 09/23/18 21:35; Admin Dose 1 DROP; Start 09/16/18 at 21:00 Loratadine (Claritin) 10 mg DAILY PO Last administered on 09/23/18 08:57; Admin Dose 10 MG; Start 09/17/18 at 09:00 Furosemide (Lasix) 40 mg BID DIURETICS IV Last administered on 09/23/18 18:46; Admin Dose 40 MG; Start 09/23/18 at 18:00 DES DUNAWAY MD Sep 23, 2018 23:47
[2018-09-24] VITALS (8 sets, daily range): BP systolic 95–110; BP diastolic 51–60; PULSE 79–92; RESP 17–18
[2018-09-24] MEDS: FUROSEMIDE 40 MG INJ IV SCH ×2 (06:00→18:00)
[2018-09-24] MEDS: POLYETHYLENE GLYCOL 17 GM PACKET PO SCH ×3 (08:37→20:31)
[2018-09-24] MEDS: LORATADINE 10 MG TAB PO SCH (08:37)
[2018-09-24] MEDS: DOCUSATE SODIUM 100 MG CAP PO SCH ×2 (08:38→20:30)
[2018-09-24] MEDS: ESCITALOPRAM 10 MG TAB PO SCH (08:38)
[2018-09-24] MEDS: oxyCODONE (CR) 10 MG TAB [oxyCONTIN] PO SCH ×2 (08:38→20:32)
[2018-09-24] MEDS: PANTOPRAZOLE (EC) 40 MG TAB PO SCH (08:38)
[2018-09-24] MEDS: POTASSIUM CHLORIDE (SR) 20 MEQ TAB PO SCH ×2 (08:38→20:30)
[2018-09-24] MEDS: SPIRONOLACTONE 50 MG TAB PO SCH (08:38)
[2018-09-24] MEDS: MAGNESIUM HYDROXIDE 30ML CUP PO SCH (08:38)
[2018-09-24] MEDS: ANASTROZOLE 1 MG TAB PO SCH (08:40)
[2018-09-24] MEDS ORDERED: LIDOCAINE 1% (MPF) 5 ML VIAL ONE (10:03)
--- NOTE | 2018-09-24 10:53 | CONS ---
Assessment/Plan Assessment/Plan Hospital Course (Demo Recall) 1. Congestive heart failure exacerbation, diastolic by most recent echo, acute on chronic.-neg trop x 3. Echo this admit EF 60/small pericardia effusion - respondiong to diuresis, feels better now - now with increased retention - diffclt to diureses with low BP - better now 2. Hypotension, currently borderline-overall improved - stable - will monitor now - ADVISE TELE - improved hypoxia 3. Anasarca - con;t fluid optimization - responded to diuresis 4. Metastatic breast carcinoma - overall poor prognosis 5. Leukopenia- on meds. 6. Thrombocytopenia.-ongoing - no active bleeding now, H/H stable at 10.7 - no active bleeding now - stable Consultation Date/Type/Reason Admit Date/Time Sep 09, 2018 at 14:53 Initial Consult Date 09/09/18 Requesting Provider: RUSS JEROME MD Date/Time of Note DATE: 09/24/18 TIME: 10:52 24 HR Interval Summary Free Text/Dictation IN CT now to remove effusion - Vs stable - will follow. Exam/Review of Systems Exam Vitals Vital Signs Date Temp Pulse Resp B/P (MAP) Pulse Ox O2 O2 Flow FiO2 Time Delivery Rate 09/24/18 97.7 80 17 96/55 (69) 93 Nasal 10:36 Cannula 09/24/18 2.0 08:00 Intake and Output 09/23/18 09/23/18 09/24/18 1515:00 23:00 07:00 IntakeIntake Total 300 ml 280 ml BalanceBalance 300 ml 280 ml Results Result Diagram: 09/24/18 0435 09/24/18 0435 Results 24hrs Laboratory Tests Test 09/23/18 17:25 09/24/18 04:35 Sodium Level 130 L 131 L Potassium Level 3.6 3.1 L Chloride Level 83 L 84 L Carbon Dioxide Level 38 H 39 H Anion Gap 9 8 Blood Urea Nitrogen 34 H 36 H Creatinine 0.86 0.81 Est Glomerular Filtrat Rate mL/min > 60 > 60 Glucose Level 114 122 Calcium Level 8.5 8.4 White Blood Count 5.0 Red Blood Count 3.25 L Hemoglobin 10.6 L Hematocrit 32.2 L Mean Corpuscular Volume 99.1 Mean Corpuscular Hemoglobin 32.6 Mean Corpuscular Hemoglobin Concent 32.9 Red Cell Distribution Width 16.3 H Platelet Count 197 # Mean Platelet Volume 9.4 Immature Granulocytes % 0.400 Neutrophils % 51.2 Lymphocytes % 27.6 Monocytes % 19.8 H Eosinophils % 0.0 Basophils % 1.0 Nucleated Red Blood Cells % 0.0 Immature Granulocytes # 0.020 Neutrophils # 2.6 Lymphocytes # 1.4 Monocytes # 1.0 H Eosinophils # 0.0 Basophils # 0.1 Nucleated Red Blood Cells # 0.0 Total Bilirubin 0.5 Direct Bilirubin 0.00 Indirect Bilirubin 0.5 Aspartate Amino Transf (AST/SGOT) 38 Alanine Aminotransferase (ALT/SGPT) 15 Alkaline Phosphatase 81 Total Protein 5.3 L Albumin 2.8 L Globulin 2.50 Albumin/Globulin Ratio 1.12 Medications Medication Current Medications Acetaminophen (Tylenol Tab) 500 mg Q6H PRN PO MILD PAIN(1-3)OR ELEVATED TEMP Last administered on 09/20/18 22:55; Admin Dose 500 MG; Start 09/09/18 at 22:30 Anastrozole (Arimidex) 1 mg DAILY PO Last administered on 09/24/18 08:40; Admin Dose 1 MG; Start 09/10/18 at 09:00 Carvedilol (Coreg) 3.125 mg BID PO Last administered on 09/23/18 21:36; Admin Dose 3.125 MG; Start 09/09/18 at 22:30 Docusate Sodium (Colace) 200 mg BID PO Last administered on 09/24/18 08:38; Admin Dose 200 MG; Start 09/09/18 at 22:30 Escitalopram Oxalate (Lexapro) 10 mg DAILY PO Last administered on 09/24/18 08:38; Admin Dose 10 MG; Start 09/10/18 at 09:00 Magnesium Hydroxide (Milk Of Mag) 30 ml DAILY PO Last administered on 09/23/18 08:57; Admin Dose 30 ML; Start 09/10/18 at 09:00 Ondansetron HCl (Zofran Tab) 4 mg Q6H PRN PO NAUSEA AND/OR VOMITING Last administered on 09/20/18 08:37; Admin Dose 4 MG; Start 09/09/18 at 22:30 Pantoprazole (Protonix Tab) 40 mg AC BREAKFAST PO Last administered on 09/24/18 08:38; Admin Dose 40 MG; Start 09/10/18 at 07:00 Polyethylene Glycol (Miralax) 17 gm BID PO Last administered on 09/24/18 08:37; Admin Dose 17 GM; Start 09/09/18 at 22:30 Spironolactone (Aldactone) 50 mg DAILY PO Last administered on 09/24/18 08:38; Admin Dose 50 MG; Start 09/13/18 at 18:00 Potassium Chloride (Klor-Con 20) 20 meq BID PO Last administered on 09/24/18 08:38; Admin Dose 20 MEQ; Start 09/15/18 at 21:00 Albuterol/ Ipratropium (Duoneb) 3 ml Q8H RESP THERAPY PRN HHN SHORTNESS OF BREATH Last administered on 09/15/18 16:09; Admin Dose 3 ML; Start 09/15/18 at 14:30 Ondansetron HCl (Zofran Inj) 4 mg Q6H PRN IV NAUSEA AND/OR VOMITING Last administered on 09/22/18 05:09; Admin Dose 4 MG; Start 09/15/18 at 14:30 Oxycodone HCl (Oxycontin) 20 mg Q12 PO Last administered on 09/24/18 08:38; Admin Dose 20 MG; Start 09/15/18 at 21:00 Olopatadine HCl (Patanol 0.1% Oph) 1 drop BID BOTH EYES Last administered on 09/23/18 21:35; Admin Dose 1 DROP; Start 09/16/18 at 21:00 Loratadine (Claritin) 10 mg DAILY PO Last administered on 09/24/18 08:37; Admin Dose 10 MG; Start 09/17/18 at 09:00 Furosemide (Lasix) 40 mg BID DIURETICS IV Last administered on 09/24/18 06:00; Admin Dose 40 MG; Start 09/23/18 at 18:00 Acetaminophen/ Hydrocodone Bitart ([place] (5/325)) 1 tab Q8 PRN PO PAIN LEVEL 7- 10; Start 09/24/18 at 08:00 EMILY NELSON MD Sep 24, 2018 10:53
[2018-09-24] MEDS: OLOPATADINE 0.1% 5 ML OPH BOTH EYES SCH ×2 (12:22→20:30)
--- NOTE | 2018-09-24 14:01 | PN ---
Date/Time of Note Date/Time of Note DATE: 09/24/18 TIME: 13:56 Assessment/Plan VTE Prophylaxis Risk score (from Nsg)>0 risk: 6 SCD applied (from Nsg): Yes SCD contraindicated: low risk/ambulating Pharmacological prophylaxis: LMWH Lines/Catheters IV Catheter Type (from Nrsg): Peripheral IV Central line still needed: No Urinary Cath still in place: No Reason Cath still needed: urinary retention Assessment/Plan Hospital Course S/p thoracentesis with re-occumulation of fluid. Status post third thoracentesis with evacuation of a 700 cc of fluid. Doing well. Assessment/Plan 1. Cancer of the left breast. Exact type at this time unknown.MULTIPLE BONY METS, PULMONARY METS 2. Severe pain in the interscapular and lumbar sacral area most probably metastatic lesion possible femoral fracture. pathologic fracture of T9 with 60% of loss of height. Neurosurgical f/u. 3. Obesity. 4. Weight loss 60 pounds during the last 2 years by diet 5. PMS. 6. Myopia. 7. Anemia chronic disease with a drop of her hematocrit to 27 and regaining to 30 without any measures. Latest results 28. Protonix was added. Today hematocrit is 26. Will recheck tomorrow 8. Anxiety disorder. Claustrophobia. Increase Ativan to 1 mg every 8 as needed at Lexapro 10 mg daily. 9. Posttraumatic stress disorder. 10. Pain in the left forearm with a history of fracture of ulna and radius. 11. Tachycardia 12. Hypoxemia at night marginal improved after 2 L of nasal cannula oxygen. 13. Deconditioning 14. 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 15. Pain syndrome. Today the most painful zone is in the right hip area. X- ray did not show any fractures. 16. Hyponatremia-persists; hypokalemia after massive diuresis. 17. Leucopenia-improved. 18. Neutropenia with occasional fever and chills. Last chemotherapy 5 days ago. 19. Hypoalbuminemia. 20.Right sided cp after catheter insertion and correction less discomfort. 21. Decreased edema both lower extremities with hypotension-improving 22.Swelling of the left forearm-persist. Now with erythema involving mainly the dorsum of the left upper extremity. 23.bilateral pleural effusions ; plan to perform tap tomorrow morning preferably from the right side. 24. Systolic over diastolic congestive heart failure with a right more than left lower extremity swelling with no DVT in latest venous Doppler. 25. Pain syndrome Result Diagram: 09/24/18 0435 09/24/18 0435 Results 24hrs Laboratory Tests Test 09/23/18 17:25 09/24/18 04:35 Sodium Level 130 L 131 L Potassium Level 3.6 3.1 L Chloride Level 83 L 84 L Carbon Dioxide Level 38 H 39 H Anion Gap 9 8 Blood Urea Nitrogen 34 H 36 H Creatinine 0.86 0.81 Est Glomerular Filtrat Rate mL/min > 60 > 60 Glucose Level 114 122 Calcium Level 8.5 8.4 White Blood Count 5.0 Red Blood Count 3.25 L Hemoglobin 10.6 L Hematocrit 32.2 L Mean Corpuscular Volume 99.1 Mean Corpuscular Hemoglobin 32.6 Mean Corpuscular Hemoglobin Concent 32.9 Red Cell Distribution Width 16.3 H Platelet Count 197 # Mean Platelet Volume 9.4 Immature Granulocytes % 0.400 Neutrophils % 51.2 Lymphocytes % 27.6 Monocytes % 19.8 H Eosinophils % 0.0 Basophils % 1.0 Nucleated Red Blood Cells % 0.0 Immature Granulocytes # 0.020 Neutrophils # 2.6 Lymphocytes # 1.4 Monocytes # 1.0 H Eosinophils # 0.0 Basophils # 0.1 Nucleated Red Blood Cells # 0.0 Total Bilirubin 0.5 Direct Bilirubin 0.00 Indirect Bilirubin 0.5 Aspartate Amino Transf (AST/SGOT) 38 Alanine Aminotransferase (ALT/SGPT) 15 Alkaline Phosphatase 81 Total Protein 5.3 L Albumin 2.8 L Globulin 2.50 Albumin/Globulin Ratio 1.12 Subjective 24 Hr Interval Summary Free Text/Dictation Discomfort in the left chest. Status post thoracentesis. Breathing improved. Constitutional: chills, poor po; No no complaints, No improved, No diaphoresis, No disoriented, No febrile, No requiring IVF, No requiring O2, No other Eyes: redness; No no complaints, No pain, No discharge, No visual change, No other ENT: No no complaints, No bleeding, No pain, No congestion, No discharge, No dysphagia, No sore throat, No other Respiratory: cough, pleuritic pain, shortness of breath Cardiovascular: chest pain, edema, lightheadedness; No no complaints, No orthopenea, No palpitations, No paroxysmal nocturnal dyspnea, No other Gastrointestinal: constipation, decreased appetite, passing stool; No no complaints, No pain, No blood, No diarrhea, No flatus, No nausea, No vomiting, No other Genitourinary: dysuria, flank pain; No no complaints, No bleeding, No discharge, No hematuria, No other Musculoskeletal: back pain, bone/joint pain, neck pain; No no complaints, No restricted range of motion, No swelling, No other Skin: No no complaints, No bruising, No erythema, No laceration, No pruritis, No rash, No skin lesions, No other Neurologic: dizziness; No no complaints, No confusion, No focal-weakness, No headache, No syncope, No seizure, No other Exam/Review of Systems Exam Vitals Vital Signs Date Temp Pulse Resp B/P (MAP) Pulse Ox O2 O2 Flow FiO2 Time Delivery Rate 09/24/18 97.7 80 17 96/55 (69) 93 Nasal 10:36 Cannula 09/24/18 2.0 08:00 Intake and Output 09/23/18 09/23/18 09/24/18 1515:00 23:00 07:00 IntakeIntake Total 300 ml 280 ml BalanceBalance 300 ml 280 ml Constitutional: alert, oriented, well developed, distress, frail Psych: nl mood/affect, anxiety, depression; No no complaints, No confusion, No suicidal, No other Head: normocephalic, atraumatic Eyes: EOMI, nl lids, PERRL; No nl conjunctiva, No nl sclera, No icteric, No fundi, disc, No other ENMT: No nl external ears & nose, No nl lips & teeth, No nl nasal mucosa & septum, No mucosa pink and moist, No intubated, No tympanic membranes, No other Neck: jvd, bruits, nuchal rigidity; No supple, No non-tender, No masses, No thyromegaly, No other Respiratory: congested cough, crackles/rales, diminished breath sounds, intercostal retraction; No clear to auscultation, No normal air movement, No labored breathing, No respirations, No tactile fremitus, No wheezing, No other Cardiovascular: regular rate and rhythm, bruits, jugular venous distention (JVD), systolic murmur; No nl pulses, No diastolic murmur, No edema, No gallop, No irregular rhythm, No murmurs/extra sounds, No rub, No S3, No S4, No other Gastrointestinal: soft, nl liver, spleen, bowel sounds; No non-tender, No ascites, No distended, No firm, No hepatomegaly, No mass, No rebound or guarding, No splenomegaly, No surgical scars, No tender, No other Genitourinary - Female: nl adnexae, nl external genitalia; No CMT, No CVA tenderness, No uterus, No other Musculoskeletal: joint tenderness, muscle tone, muscle weakness; No nl extremities to inspection, No nl gait and stance, No range of motion, No spine non-tender, No swelling, No other Extremities: edema; No normal pulses, No calf tenderness, No cyanosis, No clubbing, No pitting pedal edema, No palpable cord, No tenderness, No other 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: 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; No nl mental status, No nl speech, No nl strength, No confused, No DTR's symmetric, No focal weakness, No lethargic, No numbness, No reflexes, No u nresponsive, No other Results Results 24hrs Laboratory Tests Test 09/23/18 17:25 09/24/18 04:35 Sodium Level 130 L 131 L Potassium Level 3.6 3.1 L Chloride Level 83 L 84 L Carbon Dioxide Level 38 H 39 H Anion Gap 9 8 Blood Urea Nitrogen 34 H 36 H Creatinine 0.86 0.81 Est Glomerular Filtrat Rate mL/min > 60 > 60 Glucose Level 114 122 Calcium Level 8.5 8.4 White Blood Count 5.0 Red Blood Count 3.25 L Hemoglobin 10.6 L Hematocrit 32.2 L Mean Corpuscular Volume 99.1 Mean Corpuscular Hemoglobin 32.6 Mean Corpuscular Hemoglobin Concent 32.9 Red Cell Distribution Width 16.3 H Platelet Count 197 # Mean Platelet Volume 9.4 Immature Granulocytes % 0.400 Neutrophils % 51.2 Lymphocytes % 27.6 Monocytes % 19.8 H Eosinophils % 0.0 Basophils % 1.0 Nucleated Red Blood Cells % 0.0 Immature Granulocytes # 0.020 Neutrophils # 2.6 Lymphocytes # 1.4 Monocytes # 1.0 H Eosinophils # 0.0 Basophils # 0.1 Nucleated Red Blood Cells # 0.0 Total Bilirubin 0.5 Direct Bilirubin 0.00 Indirect Bilirubin 0.5 Aspartate Amino Transf (AST/SGOT) 38 Alanine Aminotransferase (ALT/SGPT) 15 Alkaline Phosphatase 81 Total Protein 5.3 L Albumin 2.8 L Globulin 2.50 Albumin/Globulin Ratio 1.12 Medications Medication Current Medications Acetaminophen (Tylenol Tab) 500 mg Q6H PRN PO MILD PAIN(1-3)OR ELEVATED TEMP Last administered on 09/20/18 22:55; Admin Dose 500 MG; Start 09/09/18 at 22:30 Anastrozole (Arimidex) 1 mg DAILY PO Last administered on 09/24/18 08:40; Admin Dose 1 MG; Start 09/10/18 at 09:00 Carvedilol (Coreg) 3.125 mg BID PO Last administered on 09/23/18 21:36; Admin Dose 3.125 MG; Start 09/09/18 at 22:30 Docusate Sodium (Colace) 200 mg BID PO Last administered on 09/24/18 08:38; Admin Dose 200 MG; Start 09/09/18 at 22:30 Escitalopram Oxalate (Lexapro) 10 mg DAILY PO Last administered on 09/24/18 08:38; Admin Dose 10 MG; Start 09/10/18 at 09:00 Magnesium Hydroxide (Milk Of Mag) 30 ml DAILY PO Last administered on 09/23/18 08:57; Admin Dose 30 ML; Start 09/10/18 at 09:00 Ondansetron HCl (Zofran Tab) 4 mg Q6H PRN PO NAUSEA AND/OR VOMITING Last administered on 09/20/18 08:37; Admin Dose 4 MG; Start 09/09/18 at 22:30 Pantoprazole (Protonix Tab) 40 mg AC BREAKFAST PO Last administered on 09/24/18 08:38; Admin Dose 40 MG; Start 09/10/18 at 07:00 Polyethylene Glycol (Miralax) 17 gm BID PO Last administered on 09/23/18 21:35; Admin Dose 17 GM; Start 09/09/18 at 22:30 Spironolactone (Aldactone) 50 mg DAILY PO Last administered on 09/24/18 08:38; Admin Dose 50 MG; Start 09/13/18 at 18:00 Potassium Chloride (Klor-Con 20) 20 meq BID PO Last administered on 09/24/18 08:38; Admin Dose 20 MEQ; Start 09/15/18 at 21:00 Albuterol/ Ipratropium (Duoneb) 3 ml Q8H RESP THERAPY PRN HHN SHORTNESS OF BREATH Last administered on 09/15/18 16:09; Admin Dose 3 ML; Start 09/15/18 at 14:30 Ondansetron HCl (Zofran Inj) 4 mg Q6H PRN IV NAUSEA AND/OR VOMITING Last admini stered on 09/22/18 05:09; Admin Dose 4 MG; Start 09/15/18 at 14:30 Oxycodone HCl (Oxycontin) 20 mg Q12 PO Last administered on 09/24/18 08:38; Admin Dose 20 MG; Start 09/15/18 at 21:00 Olopatadine HCl (Patanol 0.1% Oph) 1 drop BID BOTH EYES Last administered on 09/24/18 12:22; Admin Dose 1 DROP; Start 09/16/18 at 21:00 Loratadine (Claritin) 10 mg DAILY PO Last administered on 09/24/18 08:37; Admin Dose 10 MG; Start 09/17/18 at 09:00 Furosemide (Lasix) 40 mg BID DIURETICS IV Last administered on 09/24/18 06:00; Admin Dose 40 MG; Start 09/23/18 at 18:00 Acetaminophen/ Hydrocodone Bitart ([place] (5/325)) 1 tab Q8 PRN PO PAIN LEVEL 7- 10; Start 09/24/18 at 08:00 RUSS JEROME MD Sep 24, 2018 14:01
[2018-09-25 00:45] VITALS: BP 127/74; PULSE 88; RESP 18
[2018-09-25] MEDS: FUROSEMIDE 40 MG INJ IV SCH ×2 (06:00→18:00)
[2018-09-25] MEDS ORDERED: POTASSIUM CHLORIDE (SR) 20 MEQ TAB PO STA (07:33)
--- NOTE | 2018-09-25 07:40 | PN ---
Date/Time of Note Date/Time of Note DATE: 09/25/18 TIME: 07:35 Assessment/Plan VTE Prophylaxis Risk score (from Nsg)>0 risk: 3 SCD applied (from Nsg): Yes SCD contraindicated: low risk/ambulating Pharmacological prophylaxis: LMWH Lines/Catheters IV Catheter Type (from Nrsg): Peripheral IV Central line still needed: No Urinary Cath still in place: No Reason Cath still needed: urinary retention Assessment/Plan Hospital Course S/p thoracentesis with re-occumulation of fluid. Status post third thoracentesis with evacuation of a 700 cc of fluid. Doing well. Assessment/Plan 1. Cancer of the left breast. Exact type at this time unknown.MULTIPLE BONY METS, PULMONARY METS 2. Severe pain in the interscapular and lumbar sacral area most probably metastatic lesion possible femoral fracture. pathologic fracture of T9 with 60% of loss of height. Neurosurgical f/u. 3. Obesity. 4. Weight loss 60 pounds during the last 2 years by diet 5. PMS. 6. Myopia. 7. Anemia chronic disease with a drop of her hematocrit to 27 and regaining to 30 without any measures. Latest results 28. Protonix was added. Today hematocrit is 26. Will recheck tomorrow 8. Anxiety disorder. Claustrophobia. Increase Ativan to 1 mg every 8 as needed at Lexapro 10 mg daily. 9. Posttraumatic stress disorder. 10. Pain in the left forearm with a history of fracture of ulna and radius. 11. Tachycardia 12. Hypoxemia at night marginal improved after 2 L of nasal cannula oxygen. 13. Deconditioning 14. 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 15. Pain syndrome. Today the most painful zone is in the right hip area. X- ray did not show any fractures. 16. Hyponatremia-persists; hypokalemia after massive diuresis.Recheck and supplement. 17. Leucopenia-improved. 18. Neutropenia with occasional fever and chills. Last chemotherapy 5 days ago. 19. Hypoalbuminemia. 20.Right sided cp after catheter insertion and correction less discomfort. 21. Decreased edema both lower extremities with hypotension-improving 22.Swelling of the left forearm-persist. Now with erythema involving mainly the dorsum of the left upper extremity. 23.bilateral pleural effusions ; plan to perform tap tomorrow morning preferably from the right side. 24. Systolic over diastolic congestive heart failure with a right more than left lower extremity swelling with no DVT in latest venous Doppler. 25. Pain syndrome Result Diagram: 09/24/1843409/24/18434 Subjective 24 Hr Interval Summary Free Text/Dictation Right hip pain got worse compromising getting up standing and walking. X-rays pending. I am weak. No fever no chills no nausea vomiting. Constitutional: poor po, requiring IVF, requiring O2; No no complaints, No improved, No chills, No diaphoresis, No disoriented, No febrile, No other Eyes: visual change; No no complaints, No pain, No discharge, No redness, No other ENT: No no complaints, No bleeding, No pain, No congestion, No discharge, No dysphagia, No sore throat, No other Respiratory: No no complaints, No pain, No cough, No pleuritic pain, No shortness of breath, No sputum, No wheezing, No other Cardiovascular: chest pain, edema, lightheadedness, orthopenea, palpitations, paroxysmal nocturnal dyspnea Gastrointestinal: constipation, decreased appetite, nausea, passing stool; No no complaints, No pain, No blood, No diarrhea, No flatus, No vomiting, No other Genitourinary: dysuria, flank pain; No no complaints, No bleeding, No discharge, No hematuria, No other Musculoskeletal: back pain, bone/joint pain, neck pain (Right hip area pain almost 10/10 while moving.) Neurologic: No no complaints, No confusion, No dizziness, No focal-weakness, No headache, No syncope, No seizure, No other Exam/Review of Systems Exam Vitals Vital Signs Date Temp Pulse Resp B/P (MAP) Pulse Ox O2 O2 Flow FiO2 Time Delivery Rate 09/25/18 97.7 88 18 127/74 98 Nasal 2.0 00:45 (91) Cannula Intake and Output 09/24/18 09/24/18 09/25/18 1515:00 23:00 07:00 IntakeIntake Total 200 ml 800 ml OutputOutput Total 750 ml 150 ml BalanceBalance -750 ml 50 ml 800 ml Constitutional: alert, oriented, well developed, distress, frail, obese; No non-verbal, No other Psych: anxiety; No no complaints, No nl mood/affect, No confusion, No depression, No suicidal, No other Eyes: nl conjunctiva, EOMI, nl lids, PERRL; No nl sclera, No icteric, No fundi, disc, No other ENMT: No nl external ears & nose, No nl lips & teeth, No nl nasal mucosa & septum, No mucosa pink and moist, No intubated, No tympanic membranes, No other Neck: non-tender, nuchal rigidity; No supple, No jvd, No bruits, No masses, No thyromegaly, No other Respiratory: normal air movement, congested cough, diminished breath sounds; No clear to auscultation, No crackles/rales, No intercostal retraction, No labored breathing, No respirations, No tactile fremitus, No wheezing, No other Cardiovascular: nl pulses, edema, systolic murmur; No regular rate and rhythm, No bruits, No diastolic murmur, No gallop, No i rregular rhythm, No jugular venous distention (JVD), No murmurs/extra sounds, No rub, No S3, No S4, No other Gastrointestinal: soft, nl liver, spleen, bowel sounds; No non-tender, No ascites, No distended, No firm, No hepatomegaly, No mass, No rebound or guarding, No splenomegaly, No surgical scars, No tender, No other Genitourinary - Female: nl adnexae, nl external genitalia; No CMT, No CVA tenderness, No uterus, No other Musculoskeletal: joint tenderness, muscle tone, muscle weakness; No nl extremities to inspection, No nl gait and stance, No range of motion, No spine non-tender, No swelling, No other Extremities: edema, other; No normal pulses, No calf tenderness, No cyanosis, No clubbing, No pitting pedal edema, No palpable cord, No tenderness 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: PREPRESS OPERATOR 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, confused, numbness; No nl mental status, No nl speech, No nl strength, No DTR's symmetric, No focal weakness, No lethargic, No reflexes, No unresponsive, No other Skin: nl turgor, rash or lesions; No diaphoresis, No ecchymosis, No laceration, No puncture, No other Lymph: No nl lymph nodes, No enlarged, No nontender, No other Medications Medication Current Medications Acetaminophen (Tylenol Tab) 500 mg Q6H PRN PO MILD PAIN(1-3)OR ELEVATED TEMP Last administered on 09/20/18 22:55; Admin Dose 500 MG; Start 09/09/18 at 22:30 Anastrozole (Arimidex) 1 mg DAILY PO Last administered on 09/24/18 08:40; Admin Dose 1 MG; Start 09/10/18 at 09:00 Carvedilol (Coreg) 3.125 mg BID PO Last administered on 09/24/18 20:30; Admin Dose 3.125 MG; Start 09/09/18 at 22:30 Docusate Sodium (Colace) 200 mg BID PO Last administered on 09/24/18 20:30; Admin Dose 200 MG; Start 09/09/18 at 22:30 Escitalopram Oxalate (Lexapro) 10 mg DAILY PO Last administered on 09/24/18 08:38; Admin Dose 10 MG; Start 09/10/18 at 09:00 Ondansetron HCl (Zofran Tab) 4 mg Q6H PRN PO NAUSEA AND/OR VOMITING Last admini stered on 09/20/18 08:37; Admin Dose 4 MG; Start 09/09/18 at 22:30 Pantoprazole (Protonix Tab) 40 mg AC BREAKFAST PO Last administered on 09/24/18 08:38; Admin Dose 40 MG; Start 09/10/18 at 07:00 Polyethylene Glycol (Miralax) 17 gm BID PO Last administered on 09/23/18 21:35; Admin Dose 17 GM; Start 09/09/18 at 22:30 Spironolactone (Aldactone) 50 mg DAILY PO Last administered on 09/24/18 08:38; Admin Dose 50 MG; Start 09/13/18 at 18:00 Potassium Chloride (Klor-Con 20) 20 meq BID PO Last administered on 09/24/18 20:30; Admin Dose 20 MEQ; Start 09/15/18 at 21:00 Albuterol/ Ipratropium (Duoneb) 3 ml Q8H RESP THERAPY PRN HHN SHORTNESS OF BREATH Last administered on 09/15/18 16:09; Admin Dose 3 ML; Start 09/15/18 at 14:30 Ondansetron HCl (Zofran Inj) 4 mg Q6H PRN IV NAUSEA AND/OR VOMITING Last administered on 4/7/19at 05:09; Admin Dose 4 MG; Start 09/15/18 at 14:30 Oxycodone HCl (Oxycontin) 20 mg Q12 PO Last administered on 09/24/18at 20:32; Admin Dose 20 MG; Start 09/15/18 at 21:00 Olopatadine HCl (Patanol 0.1% Oph) 1 drop BID BOTH EYES Last administered on 09/24/18at 20:30; Admin Dose 1 DROP; Start 09/16/18 at 21:00 Loratadine (Claritin) 10 mg DAILY PO Last administered on 09/24/18at 08:37; Admin Dose 10 MG; Start 09/17/18 at 09:00 Furosemide (Lasix) 40 mg BID DIURETICS IV Last administered on 09/24/18at 06:00; Admin Dose 40 MG; Start 09/23/18 at 18:00 Acetaminophen/ Hydrocodone Bitart ([place] (5/325)) 1 tab Q8 PRN PO PAIN LEVEL 7- 10; Start 09/24/18 at 08:00 Sodium Chloride (Nacl) 1 gm TID PO ; Start 09/25/18 at 09:00; Status UNV RUSS JEROME MD Sep 25, 2018 07:40
[2018-09-25] MEDS: PANTOPRAZOLE (EC) 40 MG TAB PO SCH (07:53)
[2018-09-25 08:06] VITALS: BP 110/70; PULSE 89; RESP 18
[2018-09-25] MEDS: oxyCODONE (CR) 10 MG TAB [oxyCONTIN] PO SCH ×2 (08:29→21:03)
[2018-09-25] MEDS: HYDROCODONE/APAP (5/325) TAB PO PRN (08:29)
[2018-09-25] MEDS: POLYETHYLENE GLYCOL 17 GM PACKET PO SCH ×2 (09:08→21:05)
[2018-09-25] MEDS: ANASTROZOLE 1 MG TAB PO SCH (09:14)
[2018-09-25] MEDS: DOCUSATE SODIUM 100 MG CAP PO SCH ×2 (09:15→21:02)
[2018-09-25] MEDS: SPIRONOLACTONE 50 MG TAB PO SCH (09:15)
[2018-09-25] MEDS: POTASSIUM CHLORIDE (SR) 20 MEQ TAB PO SCH ×2 (09:16→21:02)
[2018-09-25] MEDS: LORATADINE 10 MG TAB PO SCH (09:16)
[2018-09-25] MEDS: ESCITALOPRAM 10 MG TAB PO SCH (09:16)
[2018-09-25] MEDS: SODIUM CHLORIDE 1 GM TAB PO SCH ×3 (10:41→21:03)
[2018-09-25] MEDS: OLOPATADINE 0.1% 5 ML OPH BOTH EYES SCH ×2 (10:48→21:03)
[2018-09-25 14:04] VITALS: BP 101/57; PULSE 88; RESP 18
[2018-09-25 19:25] VITALS: BP 98/53; PULSE 88; RESP 16
--- NOTE | 2018-09-25 20:47 | CONS ---
Assessment/Plan Assessment/Plan Hospital Course (Demo Recall) IMPRESSION: 1. Congestive heart failure exacerbation, diastolic by most recent echo, acute on chronic.-neg trop x 3. Echo this admit EF 60/small pericardia effusion 2. Hypotension, currently low 3. Anasarca. 4. Metastatic breast carcinoma. 5. Leukopenia. 6. Thrombocytopenia.-ongoing 7. Pericardial effusion-small by echo with no HD consequence at this time 8. Pleural effusions-recurrent. Initial cytology negative. PLeurodesis Recc: -On med-surg -Continue Lasix diuresis now daily and check baseline electrolytes -folllow K clsoely now on standing repletion BID and aldactone -Continue arimidex -Follow NA on salt tabs -coreg as tolerated only -would resend most recent thoracentesis for cytology and if positive consider VATS/pleurodesis Consultation Date/Type/Reason Admit Date/Time Sep 09, 2018 at 14:53 Initial Consult Date 09/09/18 Type of Consult Cardiology Reason for Consultation CHF Requesting Provider: RUSS JEROME MD Date/Time of Note DATE: 09/25/18 TIME: 20:41 Exam/Review of Systems Vital Signs Vitals Vital Signs Date Temp Pulse Resp B/P (MAP) Pulse Ox O2 O2 Flow FiO2 Time Delivery Rate 09/25/18 98.5 88 16 98/53 (68) 92 19:25 09/25/18 Room Air 14:04 09/25/18 2.0 08:35 Intake and Output 09/24/18 09/24/18 09/25/18 1515:00 23:00 07:00 IntakeIntake Total 200 ml 800 ml OutputOutput Total 750 ml 150 ml BalanceBalance -750 ml 50 ml 800 ml Exam Exam Review of Systems: CONSTITUTIONAL: No fevers, chills. PULMONARY: No sob CARDIOVASCULAR: No chest pain/palpitations GASTROINTESTINAL: No nausea/vomiting. GENITOURINARY: No hematuria/dysuria. MUSCULOSKELETAL: No myagias/arthalgias. PSYCHIATRIC: The patient denies depression. NEUROLOGIC: No weakness Constitutional: alert, oriented Psych: no complaints Head: normocephalic ENMT: mucosa pink and moist Neck: supple, jvd (9 cm water) Respiratory: diminished breath sounds (at bases/B) Cardiovascular: regular rate and rhythm Gastrointestinal: soft, non-tender Musculoskeletal: muscle tone (normal) Extremities: edema, pitting pedal edema (LUE persistent) 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: other (No focal deficits) Labs Result Diagram: 09/25/18 0854 09/25/18 0854 Results 24hrs Laboratory Tests Test 09/25/18 08:54 White Blood Count 5.2 Red Blood Count 3.33 L Hemoglobin 10.5 L Hematocrit 32.7 L Mean Corpuscular Volume 98.2 Mean Corpuscular Hemoglobin 31.5 Mean Corpuscular Hemoglobin Concent 32.1 Red Cell Distribution Width 16.7 H Platelet Count 182 Mean Platelet Volume 9.6 Immature Granulocytes % 0.200 Neutrophils % 54.5 Lymphocytes % 26.0 Monocytes % 18.1 H Eosinophils % 0.2 Basophils % 1.0 Nucleated Red Blood Cells % 0.0 Immature Granulocytes # 0.010 Neutrophils # 2.8 Lymphocytes # 1.4 Monocytes # 0.9 Eosinophils # 0.0 Basophils # 0.1 Nucleated Red Blood Cells # 0.0 Sodium Level 129 L Potassium Level 3.0 L Chloride Level 88 L Carbon Dioxide Level 37 H Anion Gap 4 L Blood Urea Nitrogen 29 H Creatinine 0.69 Est Glomerular Filtrat Rate mL/min > 60 Glucose Level 109 Calcium Level 8.5 Magnesium Level 2.0 Iron Level 57 Total Iron Binding Capacity 287 Percent Iron Saturation 20 L Total Bilirubin 0.7 Direct Bilirubin 0.00 Indirect Bilirubin 0.7 Aspartate Amino Transf (AST/SGOT) 34 Alanine Aminotransferase (ALT/SGPT) 23 Alkaline Phosphatase 76 Total Protein 5.3 L Albumin 2.7 L Globulin 2.60 Albumin/Globulin Ratio 1.03 Medications Medications Current Medications Acetaminophen (Tylenol Tab) 500 mg Q6H PRN PO MILD PAIN(1-3)OR ELEVATED TEMP Last administered on 09/20/18 22:55; Admin Dose 500 MG; Start 09/09/18 at 22:30 Anastrozole (Arimidex) 1 mg DAILY PO Last administered on 09/25/18 09:14; Admin Dose 1 MG; Start 09/10/18 at 09:00 Carvedilol (Coreg) 3.125 mg BID PO Last administered on 09/25/18 09:12; Admin Dose 3.125 MG; Start 09/09/18 at 22:30 Docusate Sodium (Colace) 200 mg BID PO Last administered on 09/25/18 09:15; Admin Dose 200 MG; Start 09/09/18 at 22:30 Escitalopram Oxalate (Lexapro) 10 mg DAILY PO Last administered on 09/25/18 09:16; Admin Dose 10 MG; Start 09/10/18 at 09:00 Ondansetron HCl (Zofran Tab) 4 mg Q6H PRN PO NAUSEA AND/OR VOMITING Last admini stered on 09/20/18 08:37; Admin Dose 4 MG; Start 09/09/18 at 22:30 Pantoprazole (Protonix Tab) 40 mg AC BREAKFAST PO Last administered on 09/25/18 07:53; Admin Dose 40 MG; Start 09/10/18 at 07:00 Polyethylene Glycol (Miralax) 17 gm BID PO Last administered on 09/25/18 09:08; Admin Dose 17 GM; Start 09/09/18 at 22:30 Spironolactone (Aldactone) 50 mg DAILY PO Last administered on 09/25/18 09:15; Admin Dose 50 MG; Start 09/13/18 at 18:00 Potassium Chloride (Klor-Con 20) 20 meq BID PO Last administered on 09/25/18 09:16; Admin Dose 20 MEQ; Start 09/15/18 at 21:00 Albuterol/ Ipratropium (Duoneb) 3 ml Q8H RESP THERAPY PRN HHN SHORTNESS OF BREATH Last administered on 09/15/18 16:09; Admin Dose 3 ML; Start 09/15/18 at 14:30 Ondansetron HCl (Zofran Inj) 4 mg Q6H PRN IV NAUSEA AND/OR VOMITING Last administered on 09/22/18 05:09; Admin Dose 4 MG; Start 09/15/18 at 14:30 Oxycodone HCl (Oxycontin) 20 mg Q12 PO Last administered on 09/25/18 08:29; Admin Dose 20 MG; Start 09/15/18 at 21:00 Olopatadine HCl (Patanol 0.1% Oph) 1 drop BID BOTH EYES Last administered on 09/25/18 10:48; Admin Dose 1 DROP; Start 09/16/18 at 21:00 Loratadine (Claritin) 10 mg DAILY PO Last administered on 09/25/18 09:16; Admin Dose 10 MG; Start 09/17/18 at 09:00 Furosemide (Lasix) 40 mg BID DIURETICS IV Last administered on 09/24/18at 06:00; Admin Dose 40 MG; Start 09/23/18 at 18:00 Acetaminophen/ Hydrocodone Bitart ([place] (5/325)) 1 tab Q8 PRN PO PAIN LEVEL 7- 10 Last administered on 09/25/18at 08:29; Admin Dose 1 TAB; Start 09/24/18 at 08:00 Sodium Chloride (Nacl) 1 gm TID PO Last administered on 09/25/18at 13:04; Admin Dose 1 GM; Start 09/25/18 at 09:00 KAMILA TERESA Sep 25, 2018 20:47
--- NOTE | 2018-09-25 22:51 | CONS ---
Assessment/Plan Assessment/Plan Hospital Course (Demo Recall) METASTATIC BREAST CANCER WITH PRIMARY ADENOCARCINOMA IN the left breast. MULTIPLE BONY METS, PULMONARY METS, LIVER METS CHEMO ON HOLD PT HAS A VERY GOOD RESPONSE TO CHEMO AND AI CONT AI FOR NOW CT ABD FOR RESTAGING 08.27.18- noted , stable CT CHEST- STABLE/IMPROVING 1. Moderate bilateral pleural effusions with adjacent lung base consolidation/atelectasis. 2. Moderate pericardial effusion. 3. Decreased size of previously prominent mediastinal lymph nodes. Decreased size of sub centimeter axillary lymph nodes. 4. Stable nonspecific pulmonary nodules as described above. 5. Stable soft tissue nodule of the anterior left chest wall/breast. 6. Redemonstrated diffuse sclerotic metastatic osseous lesions with stable compression deformities of the thoracic spine. 7. Nodular contour of the liver with multiple hypoattenuating masses, grossly similar to prior exam. CYTOLOGY-NEG CARD - TO MONITOR FOR PERICARDIAL TAMPONADE, FOR NOW NO NEED TO DO PERICARDIOCENTESIS Leucopenia- post chemo NEUPOGEN- DC monitor closely post Neutropenia with occasional fever and chills. Anemia chronic disease SOB PLEURAL EFFUSIONS post thoracentesis cytology -NEG ON 09.18.18 Fluid overload diuretic cardiology F-UP Congestive heart failure exacerbation, diastolic by most recent echo, acute on chronic.-neg trop x 3. Echo this admit EF 60/small pericardia effusion Hypotension, currently borderline-overall improved Anasarca. Severe pain in the interscapular and lumbar sacral area most probably metastatic lesion possible femoral fracture. pathologic fracture of T9 with 60% of loss of height. Obesity. Weight loss 60 pounds during the last 2 years PMS. Myopia. Anxiety disorder. Claustrophobia. Posttraumatic stress disorder. Pain in the left forearm with a history of fracture of ulna and radius. Tachycardia Hypoxemia at night marginal improved after 2 L of nasal cannula oxygen. Deconditioning Pain syndrome. Today the most painful zone is in the right hip area. X-ray did not show any fractures. Hyponatremia- resolved Hypoalbuminemia Right sided cp after catheter insertion and correction less discomfort. Decreased edema both lower extremities with hypotension-improving Swelling of the left forearm-persist. VK LE DOS .9.19 Consultation Date/Type/Reason Admit Date/Time Sep 09, 2018 at 14:53 Initial Consult Date 09/09/18 Type of Consult [facility] [place] Requesting Provider: RUSS JEROME MD Date/Time of Note DATE: 09/25/18 TIME: 22:51 24 HR Interval Summary Free Text/Dictation ALL NOTED NAD + PAIN R HIP Exam/Review of Systems Exam Vitals Vital Signs Date Temp Pulse Resp B/P (MAP) Pulse Ox O2 O2 Flow FiO2 Time Delivery Rate 09/25/18 98.5 88 16 98/53 (68) 92 19:25 09/25/18 Room Air 14:04 09/25/18 2.0 08:35 Intake and Output 09/24/18 09/24/18 09/25/18 1414:59 22:59 06:59 IntakeIntake Total 200 ml 800 ml OutputOutput Total 750 ml 150 ml BalanceBalance -750 ml 50 ml 800 ml Exam Constitutional: alert, oriented, well developed, distress, frail Psych: anxiety, depression; No no complaints, No nl mood/affect, No confusion, No suicidal, No other Head: normocephalic, atraumatic Eyes: EOMI, nl lids; No nl conjunctiva, No nl sclera, No PERRL, No icteric, No fundi, disc, No other ENMT: No nl external ears & nose, No nl lips & teeth, No nl nasal mucosa & septum, No mucosa pink and moist, No intubated, No tympanic membranes, No other Neck: supple, jvd, bruits; No non-tender, No masses, No thyromegaly, No nuchal rigidity, No other Respiratory: congested cough, diminished breath sounds (Left more prominent than the right side.); No clear to auscultation, No normal air movement, No crackles/rales, No intercostal retraction, No labored breathing, No respirations, No tactile fremitus, No wheezing, No other Cardiovascular: No regular rate and rhythm, No nl pulses, No bruits, No diastolic murmur, No edema, No gallop, No irregular rhythm, No jugular venous distention (JVD), No murmurs/extra sounds, No rub, No systolic murmur, No S3, No S4, No other Gastrointestinal: soft, nl liver, spleen, distended Extremities: edema (Left upper extremity more prominent in the right.), LE BL Results Result Diagram: 09/25/18 0854 09/25/18 0854 Results 24hrs Laboratory Tests Test 09/25/18 08:54 White Blood Count 5.2 Red Blood Count 3.33 L Hemoglobin 10.5 L Hematocrit 32.7 L Mean Corpuscular Volume 98.2 Mean Corpuscular Hemoglobin 31.5 Mean Corpuscular Hemoglobin Concent 32.1 Red Cell Distribution Width 16.7 H Platelet Count 182 Mean Platelet Volume 9.6 Immature Granulocytes % 0.200 Neutrophils % 54.5 Lymphocytes % 26.0 Monocytes % 18.1 H Eosinophils % 0.2 Basophils % 1.0 Nucleated Red Blood Cells % 0.0 Immature Granulocytes # 0.010 Neutrophils # 2.8 Lymphocytes # 1.4 Monocytes # 0.9 Eosinophils # 0.0 Basophils # 0.1 Nucleated Red Blood Cells # 0.0 Sodium Level 129 L Potassium Level 3.0 L Chloride Level 88 L Carbon Dioxide Level 37 H Anion Gap 4 L Blood Urea Nitrogen 29 H Creatinine 0.69 Est Glomerular Filtrat Rate mL/min > 60 Glucose Level 109 Calcium Level 8.5 Magnesium Level 2.0 Iron Level 57 Total Iron Binding Capacity 287 Percent Iron Saturation 20 L Total Bilirubin 0.7 Direct Bilirubin 0.00 Indirect Bilirubin 0.7 Aspartate Amino Transf (AST/SGOT) 34 Alanine Aminotransferase (ALT/SGPT) 23 Alkaline Phosphatase 76 Total Protein 5.3 L Albumin 2.7 L Globulin 2.60 Albumin/Globulin Ratio 1.03 Medications Medication Current Medications Acetaminophen (Tylenol Tab) 500 mg Q6H PRN PO MILD PAIN(1-3)OR ELEVATED TEMP Last administered on 09/20/18 22:55; Admin Dose 500 MG; Start 09/09/18 at 22:30 Anastrozole (Arimidex) 1 mg DAILY PO Last administered on 09/25/18 09:14; Admin Dose 1 MG; Start 09/10/18 at 09:00 Carvedilol (Coreg) 3.125 mg BID PO Last administered on 09/25/18 09:12; Admin Dose 3.125 MG; Start 09/09/18 at 22:30 Docusate Sodium (Colace) 200 mg BID PO Last administered on 09/25/18 21:02; Admin Dose 200 MG; Start 09/09/18 at 22:30 Escitalopram Oxalate (Lexapro) 10 mg DAILY PO Last administered on 09/25/18 09:16; Admin Dose 10 MG; Start 09/10/18 at 09:00 Ondansetron HCl (Zofran Tab) 4 mg Q6H PRN PO NAUSEA AND/OR VOMITING Last administered on 09/20/18 08:37; Admin Dose 4 MG; Start 09/09/18 at 22:30 Pantoprazole (Protonix Tab) 40 mg AC BREAKFAST PO Last administered on 09/25/18 07:53; Admin Dose 40 MG; Start 09/10/18 at 07:00 Polyethylene Glycol (Miralax) 17 gm BID PO Last administered on 09/25/18 21:05; Admin Dose 17 GM; Start 09/09/18 at 22:30 Spironolactone (Aldactone) 50 mg DAILY PO Last administered on 09/25/18 09:15; Admin Dose 50 MG; Start 09/13/18 at 18:00 Potassium Chloride (Klor-Con 20) 20 meq BID PO Last administered on 09/25/18 21:02; Admin Dose 20 MEQ; Start 09/15/18 at 21:00 Albuterol/ Ipratropium (Duoneb) 3 ml Q8H RESP THERAPY PRN HHN SHORTNESS OF BREATH Last administered on 09/15/18 16:09; Admin Dose 3 ML; Start 09/15/18 at 14:30 Ondansetron HCl (Zofran Inj) 4 mg Q6H PRN IV NAUSEA AND/OR VOMITING Last administered on 09/22/18 05:09; Admin Dose 4 MG; Start 09/15/18 at 14:30 Oxycodone HCl (Oxycontin) 20 mg Q12 PO Last administered on 09/25/18 21:03; Admin Dose 20 MG; Start 09/15/18 at 21:00 Olopatadine HCl (Patanol 0.1% Oph) 1 drop BID BOTH EYES Last administered on 09/25/18 21:03; Admin Dose 1 DROP; Start 09/16/18 at 21:00 Loratadine (Claritin) 10 mg DAILY PO Last administered on 09/25/18 09:16; Admin Dose 10 MG; Start 09/17/18 at 09:00 Furosemide (Lasix) 40 mg BID DIURETICS IV Last administered on 09/24/18 06:00; Admin Dose 40 MG; Start 09/23/18 at 18:00 Acetaminophen/ Hydrocodone Bitart ([place] (325)) 1 tab Q8 PRN PO PAIN LEVEL 7- 10 Last administered on 09/25/18at 08:29; Admin Dose 1 TAB; Start 09/24/18 at 08:00 Sodium Chloride (Nacl) 1 gm TID PO Last administered on 09/25/18at 21:03; Admin Dose 1 GM; Start 09/25/18 at 09:00 DES DUNAWAY MD Sep 25, 2018 22:51
[2018-09-26 02:20] VITALS: BP 97/57; PULSE 91; RESP 18
[2018-09-26 04:52] VITALS: BP 117/65; PULSE 92; RESP 16
[2018-09-26] MEDS: FUROSEMIDE 40 MG INJ IV SCH ×2 (04:57→19:10)
[2018-09-26 07:27] VITALS: BP 100/60; PULSE 87; RESP 17
[2018-09-26] MEDS: PANTOPRAZOLE (EC) 40 MG TAB PO SCH (08:47)
[2018-09-26] MEDS: DOCUSATE SODIUM 100 MG CAP PO SCH ×2 (08:47→22:27)
[2018-09-26] MEDS: ANASTROZOLE 1 MG TAB PO SCH (08:48)
[2018-09-26] MEDS: oxyCODONE (CR) 10 MG TAB [oxyCONTIN] PO SCH ×2 (08:49→22:28)
[2018-09-26] MEDS: ESCITALOPRAM 10 MG TAB PO SCH (08:49)
[2018-09-26] MEDS: LORATADINE 10 MG TAB PO SCH (08:49)
[2018-09-26] MEDS: POTASSIUM CHLORIDE (SR) 20 MEQ TAB PO SCH ×2 (08:50→22:29)
[2018-09-26] MEDS: OLOPATADINE 0.1% 5 ML OPH BOTH EYES SCH ×2 (08:50→22:34)
[2018-09-26] MEDS: SPIRONOLACTONE 50 MG TAB PO SCH (08:51)
[2018-09-26] MEDS: SODIUM CHLORIDE 1 GM TAB PO SCH ×3 (08:51→18:10)
[2018-09-26] MEDS: POLYETHYLENE GLYCOL 17 GM PACKET PO SCH ×2 (08:53→22:34)
[2018-09-26 14:49] VITALS: BP 97/54; PULSE 89; RESP 18
--- NOTE | 2018-09-26 18:02 | PN ---
Date/Time of Note Date/Time of Note DATE: 09/26/18 TIME: 17:51 Assessment/Plan VTE Prophylaxis Risk score (from Nsg)>0 risk: 6 SCD applied (from Nsg): Yes SCD contraindicated: low risk/ambulating Pharmacological prophylaxis: LMWH Lines/Catheters IV Catheter Type (from Nrsg): Peripheral IV Urinary Cath still in place: No Assessment/Plan Hospital Course S/p thoracentesis with re-occumulation of fluid. Status post third thoracentesis with evacuation of a 700 cc of fluid. Doing well. Assessment/Plan 1. Cancer of the left breast. Exact type at this time unknown.MULTIPLE BONY METS, PULMONARY METS 2. Severe pain in the interscapular and lumbar sacral area most probably metastatic lesion possible femoral fracture. pathologic fracture of T9 with 60% of loss of height. Neurosurgical f/u. 3. Obesity. 4. Weight loss 60 pounds during the last 2 years by diet 5. PMS. 6. Myopia. 7. Anemia chronic disease with a drop of her hematocrit to 27 and regaining to 30 without any measures. Latest results 28. Protonix was added. Today hematocrit is 26. Will recheck tomorrow 8. Anxiety disorder. Claustrophobia. Increase Ativan to 1 mg every 8 as needed at Lexapro 10 mg daily. 9. Posttraumatic stress disorder. 10. Pain in the left forearm with a history of fracture of ulna and radius. 11. Tachycardia 12. Hypoxemia at night marginal improved after 2 L of nasal cannula oxygen. 13. Deconditioning 14. 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 15. Pain syndrome. Today the most painful zone is in the right hip area. X- ray had show possible fracture of the neck of the right hip. CT of the pelvis and right hip planned. 16. Hyponatremia-persists; hypokalemia after massive diuresis.Recheck and supplement. 17. Leucopenia-improved. 18. Neutropenia with occasional fever and chills. Last chemotherapy 5 days ago. 19. Hypoalbuminemia. 20.Right sided cp after catheter insertion and correction less discomfort. 21. Decreased edema both lower extremities with hypotension-improving 22.Swelling of the left forearm-persist. Now no erythema. 23.bilateral pleural effusions ; plan to perform tap tomorrow morning preferably from the right side. 24. Systolic over diastolic congestive heart failure with a right more than left lower extremity swelling with no DVT in latest venous Doppler. 25. Pain syndrome 26. Hyponatremia not corrected by giving 4 g of sodium chloride daily. Increase the dose to 6 mg today and tomorrow Result Diagram: 09/25/18 0854 09/25/18 0854 Subjective 24 Hr Interval Summary Free Text/Dictation Painful right hip more prominent than left hip. Persistent edema of her left upper extremity distally. Weakness getting tired very easily. No fever no chills no nausea vomiting Constitutional: febrile, poor po, requiring O2; No no complaints, No improved, No chills, No diaphoresis, No disoriented, No requiring IVF, No other Eyes: No no complaints, No pain, No discharge, No redness, No visual change, No other ENT: congestion, discharge; No no complaints, No bleeding, No pain, No dysphagia, No sore throat, No other Respiratory: cough, pleuritic pain; No no complaints, No pain, No shortness of breath, No sputum, No wheezing, No other Cardiovascular: edema, orthopenea, palpitations; No no complaints, No chest pain, No lightheadedness, No paroxysmal nocturnal dyspnea, No other Gastrointestinal: constipation, decreased appetite, flatus, nausea, passing stool; No no complaints, No pain, No blood, No diarrhea, No vomiting, No other Genitourinary: dysuria, flank pain; No no complaints, No bleeding, No discharge, No hematuria, No other Musculoskeletal: back pain, bone/joint pain, neck pain; No no complaints, No restricted range of motion, No swelling, No other Skin: No no complaints, No bruising, No erythema, No laceration, No pruritis, No rash, No skin lesions, No other Neurologic: confusion, dizziness, headache; No no complaints, No focal-weakness, No syncope, No seizure, No other Lymphatic: tender nodes; No no complaints, No adenopathy, No lymphadema, No other Psychological: anxiety, confusion; No no complaints, No nl mood/affect, No depression, No suicidal, No other Exam/Review of Systems Exam Vitals Vital Signs Date Temp Pulse Resp B/P (MAP) Pulse Ox O2 O2 Flow FiO2 Time Delivery Rate 09/26/18 98.5 89 18 97/54 (68) 95 Room Air 14:49 09/26/18 2.0 08:00 Intake and Output 09/25/18 09/25/18 09/26/18 1515:00 23:00 07:00 IntakeIntake Total 800 ml BalanceBalance 800 ml Constitutional: alert, oriented, well developed, distress, frail, obese; No non-verbal, No other Psych: anxiety, depression; No no complaints, No nl mood/affect, No confusion, No suicidal, No other Head: normocephalic, atraumatic; No lacerations, No hematomas, No other Eyes: EOMI, nl lids, PERRL; No nl conjunctiva, No nl sclera, No icteric, No fundi, disc, No other ENMT: nl lips & teeth; No nl external ears & nose, No nl nasal mucosa & septum, No mucosa pink and moist, No intubated, No tympanic membranes, No other Neck: jvd, bruits, masses, nuchal rigidity; No supple, No non-tender, No thyromegaly, No other Respiratory: congested cough, crackles/rales, diminished breath sounds; No clear to auscultation, No normal air movement, No intercostal retraction, No labored breathing, No respirations, No tactile fremitus, No wheezing, No other Cardiovascular: bruits, edema, jugular venous distention (JVD), systolic murmur; No regular rate and rhythm, No nl pulses, No diastolic murmur, No gallop, No irregular rhythm, No murmurs/extra sounds, No rub, No S3, No S4, No other Gastrointestinal: soft, nl liver, spleen, bowel sounds, distended, hepatomegaly; No non-tender, No ascites, No firm, No mass, No rebound or guarding, No splenomegaly, No surgical scars, No tender, No other Genitourinary - Female: nl adnexae, nl external genitalia; No CMT, No CVA tenderness, No uterus, No other Musculoskeletal: joint tenderness, muscle tone, muscle weakness, spine non- tender, other (Moderate to severe tenderness of the right hip area on palpation without local erythema or visible swelling.); No nl extremities to inspection, No nl gait and stance, No range of motion, No swelling Extremities: edema, pitting pedal edema, other (Edema over the left upper extremity mainly her forearm area still persists. Observation had shown that when patient is putting left upper extremity above the heart level edema decreases.); No normal pulses, No calf tenderness, No cyanosis, No clubbing, No palpable cord, No tenderness 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: PLANNING INTERN 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, nl speech; No nl mental status, No nl strength, No confused, No DTR's symmetric, No focal weakness, No lethargic, No numbness, No reflexes, No unresponsive, No other Skin: rash or lesions; No nl turgor, No diaphoresis, No ecchymosis, No laceration, No puncture, No other Medications Medication Current Medications Acetaminophen (Tylenol Tab) 500 mg Q6H PRN PO MILD PAIN(1-3)OR ELEVATED TEMP Last administered on 09/20/18 22:55; Admin Dose 500 MG; Start 09/09/18 at 22:30 Anastrozole (Arimidex) 1 mg DAILY PO Last administered on 09/26/18 08:48; Admin Dose 1 MG; Start 09/10/18 at 09:00 Carvedilol (Coreg) 3.125 mg BID PO Last administered on 09/25/18 09:12; Admin Dose 3.125 MG; Start 09/09/18 at 22:30 Docusate Sodium (Colace) 200 mg BID PO Last administered on 09/26/18 08:47; Admin Dose 200 MG; Start 09/09/18 at 22:30 Escitalopram Oxalate (Lexapro) 10 mg DAILY PO Last administered on 09/26/18 08:49; Admin Dose 10 MG; Start 09/10/18 at 09:00 Ondansetron HCl (Zofran Tab) 4 mg Q6H PRN PO NAUSEA AND/OR VOMITING Last administered on 09/20/18 08:37; Admin Dose 4 MG; Start 09/09/18 at 22:30 Pantoprazole (Protonix Tab) 40 mg AC BREAKFAST PO Last administered on 09/26/18 08:47; Admin Dose 40 MG; Start 09/10/18 at 07:00 Polyethylene Glycol (Miralax) 17 gm BID PO Last administered on 09/26/18 08:53; Admin Dose 17 GM; Start 09/09/18 at 22:30 Spironolactone (Aldactone) 50 mg DAILY PO Last administered on 09/26/18 08:51; Admin Dose 50 MG; Start 09/13/18 at 18:00 Potassium Chloride (Klor-Con 20) 20 meq BID PO Last administered on 09/26/18 08:50; Admin Dose 20 MEQ; Start 09/15/18 at 21:00 Albuterol/ Ipratropium (Duoneb) 3 ml Q8H RESP THERAPY PRN HHN SHORTNESS OF BR EATH Last administered on 09/15/18 16:09; Admin Dose 3 ML; Start 09/15/18 at 14:30 Ondansetron HCl (Zofran Inj) 4 mg Q6H PRN IV NAUSEA AND/OR VOMITING Last administered on 09/22/18 05:09; Admin Dose 4 MG; Start 09/15/18 at 14:30 Oxycodone HCl (Oxycontin) 20 mg Q12 PO Last administered on 09/26/18 08:49; Admin Dose 20 MG; Start 09/15/18 at 21:00 Olopatadine HCl (Patanol 0.1% Oph) 1 drop BID BOTH EYES Last administered on 09/26/18 08:50; Admin Dose 1 DROP; Start 09/16/18 at 21:00 Loratadine (Claritin) 10 mg DAILY PO Last administered on 09/26/18 08:49; Admin Dose 10 MG; Start 09/17/18 at 09:00 Furosemide (Lasix) 40 mg BID DIURETICS IV Last administered on 09/26/18 04:57; Admin Dose 40 MG; Start 09/23/18 at 18:00 Acetaminophen/ Hydrocodone Bitart ([place] (5/325)) 1 tab Q8 PRN PO PAIN LEVEL 7- 10 Last administered on 09/25/18 08:29; Admin Dose 1 TAB; Start 09/24/18 at 08:00 Sodium Chloride (Nacl) 1 gm TID PO Last administered on 09/26/18 13:51; Admin Dose 1 GM; Start 09/25/18 at 09:00 Lidocaine (Lidoderm) 2 patch DAILY TD ; Start 09/26/18 at 17:30 RUSS JEROME MD Sep 26, 2018 18:02
[2018-09-26 19:35] VITALS: BP 103/62; PULSE 94; RESP 20
--- NOTE | 2018-09-26 20:04 | CONS ---
Assessment/Plan Assessment/Plan Hospital Course (Demo Recall) IMPRESSION: 1. Congestive heart failure exacerbation, diastolic by most recent echo, acute on chronic.-neg trop x 3. Echo this admit EF 60/small pericardia effusion 2. Hypotension, currently low 3. Anasarca. 4. Metastatic breast carcinoma. 5. Leukopenia. 6. Thrombocytopenia.-ongoing 7. Pericardial effusion-small by echo with no HD consequence at this time 8. Pleural effusions-recurrent. Initial cytology negative. ? PLeurodesis Recc: -On med-surg -Continue Lasix diuresis -folllow K clsoely now on standing repletion BID and aldactone and will give additional KCL rep[letion -Continue arimidex -Follow NA on salt tabs -coreg as tolerated only -would resend most recent thoracentesis for cytology and if positive consider VATS/pleurodesis Consultation Date/Type/Reason Admit Date/Time Sep 09, 2018 at 14:53 Initial Consult Date 09/09/18 Type of Consult Cardiology Reason for Consultation CHF Requesting Provider: RUSS JEROME MD Date/Time of Note DATE: 09/26/18 TIME: 20:01 Exam/Review of Systems Vital Signs Vitals Vital Signs Date Temp Pulse Resp B/P (MAP) Pulse Ox O2 O2 Flow FiO2 Time Delivery Rate 09/26/18 98.5 89 18 97/54 (68) 95 Room Air 14:49 09/26/18 2.0 08:00 Intake and Output 09/25/18 09/25/18 09/26/18 1515:00 23:00 07:00 IntakeIntake Total 800 ml BalanceBalance 800 ml Exam Exam Review of Systems: CONSTITUTIONAL: No fevers, chills. PULMONARY: No sob CARDIOVASCULAR: No chest pain/palpitations GASTROINTESTINAL: No nausea/vomiting. GENITOURINARY: No hematuria/dysuria. MUSCULOSKELETAL: No myagias/arthalgias. PSYCHIATRIC: The patient denies depression. NEUROLOGIC: No weakness Constitutional: alert, oriented Psych: no complaints ENMT: mucosa pink and moist Neck: supple, jvd (9 cm water) Respiratory: diminished breath sounds Cardiovascular: regular rate and rhythm Gastrointestinal: soft, non-tender Musculoskeletal: muscle tone (normal) Extremities: edema (none) 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: other (No focal deficits) Labs Result Diagram: 09/25/18 0854 09/25/18 0854 Medications Medications Current Medications Acetaminophen (Tylenol Tab) 500 mg Q6H PRN PO MILD PAIN(1-3)OR ELEVATED TEMP Last administered on 09/20/18 22:55; Admin Dose 500 MG; Start 09/09/18 at 22:30 Anastrozole (Arimidex) 1 mg DAILY PO Last administered on 09/26/18 08:48; Admin Dose 1 MG; Start 09/10/18 at 09:00 Carvedilol (Coreg) 3.125 mg BID PO Last administered on 09/25/18 09:12; Admin Dose 3.125 MG; Start 09/09/18 at 22:30 Docusate Sodium (Colace) 200 mg BID PO Last administered on 09/26/18 08:47; Admin Dose 200 MG; Start 09/09/18 at 22:30 Escitalopram Oxalate (Lexapro) 10 mg DAILY PO Last administered on 09/26/18 08:49; Admin Dose 10 MG; Start 09/10/18 at 09:00 Ondansetron HCl (Zofran Tab) 4 mg Q6H PRN PO NAUSEA AND/OR VOMITING Last administered on 09/20/18 08:37; Admin Dose 4 MG; Start 09/09/18 at 22:30 Pantoprazole (Protonix Tab) 40 mg AC BREAKFAST PO Last administered on 09/26/18 08:47; Admin Dose 40 MG; Start 09/10/18 at 07:00 Polyethylene Glycol (Miralax) 17 gm BID PO Last administered on 09/26/18 08:53; Admin Dose 17 GM; Start 09/09/18 at 22:30 Spironolactone (Aldactone) 50 mg DAILY PO Last administered on 09/26/18 08:51; Admin Dose 50 MG; Start 09/13/18 at 18:00 Potassium Chloride (Klor-Con 20) 20 meq BID PO Last administered on 09/26/18 08:50; Admin Dose 20 MEQ; Start 09/15/18 at 21:00 Albuterol/ Ipratropium (Duoneb) 3 ml Q8H RESP THERAPY PRN HHN SHORTNESS OF BR EATH Last administered on 09/15/18 16:09; Admin Dose 3 ML; Start 09/15/18 at 14:30 Ondansetron HCl (Zofran Inj) 4 mg Q6H PRN IV NAUSEA AND/OR VOMITING Last administered on 09/22/18 05:09; Admin Dose 4 MG; Start 09/15/18 at 14:30 Oxycodone HCl (Oxycontin) 20 mg Q12 PO Last administered on 09/26/18 08:49; Admin Dose 20 MG; Start 09/15/18 at 21:00 Olopatadine HCl (Patanol 0.1% Oph) 1 drop BID BOTH EYES Last administered on 09/26/18 08:50; Admin Dose 1 DROP; Start 09/16/18 at 21:00 Loratadine (Claritin) 10 mg DAILY PO Last administered on 09/26/18 08:49; Admin Dose 10 MG; Start 09/17/18 at 09:00 Furosemide (Lasix) 40 mg BID DIURETICS IV Last administered on 09/26/18 04:57; Admin Dose 40 MG; Start 09/23/18 at 18:00 Acetaminophen/ Hydrocodone Bitart ([place] (5/325)) 1 tab Q8 PRN PO PAIN LEVEL 7- 10 Last administered on 09/25/18 08:29; Admin Dose 1 TAB; Start 09/24/18 at 08:00 Lidocaine (Lidoderm) 2 patch DAILY TD ; Start 09/26/18 at 17:30 Sodium Chloride (Nacl) 3 gm BID WITH MEALS PO Last administered on 09/26/18 18:10; Admin Dose 3 GM; Start 09/26/18 at 18:00; Stop 09/28/18 at 10:00 KAMILA TERESA Sep 26, 2018 20:04
[2018-09-26] MEDS ORDERED: LORAZEPAM 2 MG INJ IV ONE (21:30)
[2018-09-26] MEDS: HYDROCODONE/APAP (5/325) TAB PO PRN (22:27)
[2018-09-26] MEDS: POTASSIUM CHLORIDE 100 ML IVPB SCH (22:37)
[2018-09-26] MEDS: LIDOCAINE 5% PATCH TD SCH (22:39)
--- NOTE | 2018-09-26 23:12 | CONS ---
Assessment/Plan Assessment/Plan Hospital Course (Demo Recall) METASTATIC BREAST CANCER WITH PRIMARY ADENOCARCINOMA IN the left breast. MULTIPLE BONY METS, PULMONARY METS, LIVER METS CHEMO ON HOLD PT HAS A VERY GOOD RESPONSE TO CHEMO AND AI CONT AI FOR NOW CT ABD FOR RESTAGING 08.27.18- noted , stable CT CHEST- STABLE/IMPROVING 1. Moderate bilateral pleural effusions with adjacent lung base consolidation/atelectasis. 2. Moderate pericardial effusion. 3. Decreased size of previously prominent mediastinal lymph nodes. Decreased size of sub centimeter axillary lymph nodes. 4. Stable nonspecific pulmonary nodules as described above. 5. Stable soft tissue nodule of the anterior left chest wall/breast. 6. Redemonstrated diffuse sclerotic metastatic osseous lesions with stable compression deformities of the thoracic spine. 7. Nodular contour of the liver with multiple hypoattenuating masses, grossly similar to prior exam. CYTOLOGY-NEG CARD - TO MONITOR FOR PERICARDIAL TAMPONADE, FOR NOW NO NEED TO DO PERICARDIOCENTESIS R HIP PAIN - WITH KNOWN MET- WORSENING OBTAIN MRI Leucopenia- post chemo NEUPOGEN- DC monitor closely post Neutropenia with occasional fever and chills. Anemia chronic disease SOB PLEURAL EFFUSIONS post thoracentesis cytology -NEG ON 09.18.18 Fluid overload diuretic cardiology F-UP Congestive heart failure exacerbation, diastolic by most recent echo, acute on chronic.-neg trop x 3. Echo this admit EF 60/small pericardia effusion Hypotension, currently borderline-overall improved Anasarca. Severe pain in the interscapular and lumbar sacral area most probably metastatic lesion possible femoral fracture. pathologic fracture of T9 with 60% of loss of height. Obesity. Weight loss 60 pounds during the last 2 years PMS. Myopia. Anxiety disorder. Claustrophobia. Posttraumatic stress disorder. Pain in the left forearm with a history of fracture of ulna and radius. Tachycardia Hypoxemia at night marginal improved after 2 L of nasal cannula oxygen. Deconditioning Pain syndrome. Today the most painful zone is in the right hip area. X-ray did not show any fractures. Hyponatremia- resolved Hypoalbuminemia Right sided cp after catheter insertion and correction less discomfort. Decreased edema both lower extremities with hypotension-improving Swelling of the left forearm-persist. Consultation Date/Type/Reason Admit Date/Time Sep 09, 2018 at 14:53 Initial Consult Date 09/09/18 Type of Consult [facility] Requesting Provider: RUSS JEROME MD Date/Time of Note DATE: 09/26/18 TIME: 23:10 24 HR Interval Summary Free Text/Dictation all noted more R hip pain x several days Exam/Review of Systems Exam Vitals Vital Signs Date Temp Pulse Resp B/P (MAP) Pulse Ox O2 O2 Flow FiO2 Time Delivery Rate 09/26/18 98.4 94 20 103/62 91 Room Air 19:35 (76) 09/26/18 2.0 08:00 Intake and Output 09/25/18 09/25/18 09/26/18 1515:00 23:00 07:00 IntakeIntake Total 800 ml BalanceBalance 800 ml Exam Constitutional: alert, oriented, well developed, distress, frail Psych: anxiety, depression; No no complaints, No nl mood/affect, No confusion, No suicidal, No other Head: normocephalic, atraumatic Eyes: EOMI, nl lids; No nl conjunctiva, No nl sclera, No PERRL, No icteric, No fundi, disc, No other ENMT: No nl external ears & nose, No nl lips & teeth, No nl nasal mucosa & septum, No mucosa pink and moist, No intubated, No tympanic membranes, No other Neck: supple, jvd, bruits; No non-tender, No masses, No thyromegaly, No nuchal rigidity, No other Respiratory: congested cough, diminished breath sounds (Left more prominent than the right side.); No clear to auscultation, No normal air movement, No crackles/rales, No intercostal retraction, No labored breathing, No respirations, No tactile fremitus, No wheezing, No other Cardiovascular: No regular rate and rhythm, No nl pulses, No bruits, No diastolic murmur, No edema, No gallop, No irregular rhythm, No jugular venous distention (JVD), No murmurs/extra sounds, No rub, No systolic murmur, No S3, No S4, No other Gastrointestinal: soft, nl liver, spleen, distended Extremities: edema (Left upper extremity more prominent in the right.), LE BL Results Result Diagram: 09/25/18 0854 09/25/18 0854 Medications Medication Current Medications Acetaminophen (Tylenol Tab) 500 mg Q6H PRN PO MILD PAIN(1-3)OR ELEVATED TEMP Last administered on 09/20/18 22:55; Admin Dose 500 MG; Start 09/09/18 at 22:30 Anastrozole (Arimidex) 1 mg DAILY PO Last administered on 09/26/18 08:48; Admin Dose 1 MG; Start 09/10/18 at 09:00 Carvedilol (Coreg) 3.125 mg BID PO Last administered on 09/26/18 22:29; Admin Dose 3.125 MG; Start 09/09/18 at 22:30 Docusate Sodium (Colace) 200 mg BID PO Last administered on 09/26/18 22:27; Admin Dose 200 MG; Start 09/09/18 at 22:30 Escitalopram Oxalate (Lexapro) 10 mg DAILY PO Last administered on 09/26/18 08:49; Admin Dose 10 MG; Start 09/10/18 at 09:00 Ondansetron HCl (Zofran Tab) 4 mg Q6H PRN PO NAUSEA AND/OR VOMITING Last administered on 09/20/18 08:37; Admin Dose 4 MG; Start 09/09/18 at 22:30 Pantoprazole (Protonix Tab) 40 mg AC BREAKFAST PO Last administered on 09/26/18 08:47; Admin Dose 40 MG; Start 09/10/18 at 07:00 Polyethylene Glycol (Miralax) 17 gm BID PO Last administered on 09/26/18 22:34; Admin Dose 17 GM; Start 09/09/18 at 22:30 Spironolactone (Aldactone) 50 mg DAILY PO Last administered on 09/26/18 08:51; Admin Dose 50 MG; Start 09/13/18 at 18:00 Potassium Chloride (Klor-Con 20) 20 meq BID PO Last administered on 09/26/18 22:29; Admin Dose 20 MEQ; Start 09/15/18 at 21:00 Albuterol/ Ipratropium (Duoneb) 3 ml Q8H RESP THERAPY PRN HHN SHORTNESS OF BREATH Last administered on 09/15/18 16:09; Admin Dose 3 ML; Start 09/15/18 at 14:30 Ondansetron HCl (Zofran Inj) 4 mg Q6H PRN IV NAUSEA AND/OR VOMITING Last administered on 09/22/18 05:09; Admin Dose 4 MG; Start 09/15/18 at 14:30 Oxycodone HCl (Oxycontin) 20 mg Q12 PO Last administered on 09/26/18 22:28; Admin Dose 20 MG; Start 09/15/18 at 21:00 Olopatadine HCl (Patanol 0.1% Oph) 1 drop BID BOTH EYES Last administered on 09/26/18 22:34; Admin Dose 1 DROP; Start 09/16/18 at 21:00 Loratadine (Claritin) 10 mg DAILY PO Last administered on 09/26/18 08:49; Admin Dose 10 MG; Start 09/17/18 at 09:00 Furosemide (Lasix) 40 mg BID DIURETICS IV Last administered on 09/26/18 04:57; Admin Dose 40 MG; Start 09/23/18 at 18:00 Acetaminophen/ Hydrocodone Bitart ([place] (5/325)) 1 tab Q8 PRN PO PAIN LEVEL 7- 10 Last administered on 09/26/18 22:27; Admin Dose 1 TAB; Start 09/24/18 at 08:00 Lidocaine (Lidoderm) 2 patch DAILY TD Last administered on 09/26/18 22:39; Admin Dose 2 PATCH; Start 09/26/18 at 17:30 Sodium Chloride (Nacl) 3 gm BID WITH MEALS PO Last administered on 09/26/18 18:10; Admin Dose 3 GM; Start 09/26/18 at 18:00; Stop 09/28/18 at 10:00 Potassium Chloride 100 ml @ 50 mls/hr Q2H IVPB Last administered on 09/26/18 22:37; Admin Dose 50 MLS/HR; Start 09/26/18 at 22:00; Stop 09/27/18 at 01:59 DES DUNAWAY MD Sep 26, 2018 23:12
[2018-09-27] MEDS: POTASSIUM CHLORIDE 100 ML IVPB SCH (00:31)
[2018-09-27 02:00] VITALS: BP 118/78; PULSE 91; RESP 18
[2018-09-27] MEDS: FUROSEMIDE 40 MG INJ IV SCH ×2 (04:56→18:00)
[2018-09-27 07:39] VITALS: BP 106/66; PULSE 83; RESP 19
[2018-09-27] MEDS: PANTOPRAZOLE (EC) 40 MG TAB PO SCH (08:42)
[2018-09-27] MEDS ORDERED: LIDOCAINE 5% PATCH TD SCH (09:00)
[2018-09-27] MEDS: LORATADINE 10 MG TAB PO SCH (09:11)
[2018-09-27] MEDS: DOCUSATE SODIUM 100 MG CAP PO SCH ×2 (09:12→21:46)
[2018-09-27] MEDS: POTASSIUM CHLORIDE (SR) 20 MEQ TAB PO SCH ×2 (09:13→21:47)
[2018-09-27] MEDS: SODIUM CHLORIDE 1 GM TAB PO SCH ×2 (09:13→17:55)
[2018-09-27] MEDS: ESCITALOPRAM 10 MG TAB PO SCH (09:14)
[2018-09-27] MEDS: OLOPATADINE 0.1% 5 ML OPH BOTH EYES SCH ×2 (09:18→21:46)
[2018-09-27] MEDS: SPIRONOLACTONE 50 MG TAB PO SCH (09:18)
[2018-09-27] MEDS: POLYETHYLENE GLYCOL 17 GM PACKET PO SCH ×2 (09:20→21:00)
[2018-09-27] MEDS: LIDOCAINE 5% PATCH TD SCH (09:20)
[2018-09-27] MEDS: ANASTROZOLE 1 MG TAB PO SCH (09:22)
[2018-09-27] MEDS: oxyCODONE (CR) 10 MG TAB [oxyCONTIN] PO SCH ×2 (09:24→21:47)
[2018-09-27 15:11] VITALS: BP 105/63; PULSE 93; RESP 19
[2018-09-27] MEDS: HYDROCODONE/APAP (5/325) TAB PO PRN (16:27)
--- NOTE | 2018-09-27 18:07 | CONS ---
Assessment/Plan Assessment/Plan Hospital Course (Demo Recall) IMPRESSION: 1. Congestive heart failure exacerbation, diastolic by most recent echo, acute on chronic.-neg trop x 3. Echo this admit EF 60/small pericardia effusion 2. Hypotension, currently low 3. Anasarca. 4. Metastatic breast carcinoma. 5. Leukopenia. 6. Thrombocytopenia.-ongoing 7. Pericardial effusion-small by echo with no HD consequence at this time 8. Pleural effusions-recurrent. Initial cytology negative. ? PLeurodesis Recc: -On med-surg -Continue Lasix diuresis -folllow K clsoely now on standing repletion BID and aldactone s/p additional dose of KCVL yesterday -Continue arimidex -Follow NA on salt tabs -coreg as tolerated only -would resend most recent thoracentesis for cytology and if positive consider VATS/pleurodesis Consultation Date/Type/Reason Admit Date/Time Sep 09, 2018 at 14:53 Initial Consult Date 09/09/18 Type of Consult Cardiology Reason for Consultation CHF Requesting Provider: RUSS JEROME MD Date/Time of Note DATE: 09/27/18 TIME: 18:06 Exam/Review of Systems Vital Signs Vitals Vital Signs Date Temp Pulse Resp B/P (MAP) Pulse Ox O2 O2 Flow FiO2 Time Delivery Rate 09/27/18 98.0 93 19 105/63 98 15:11 (77) 09/27/18 Room Air 07:39 09/26/18 2.0 08:00 Intake and Output 09/26/18 09/26/18 09/27/18 1515:00 23:00 07:00 IntakeIntake Total 200 ml 240 ml 440 ml BalanceBalance 200 ml 240 ml 440 ml Exam Exam Review of Systems: CONSTITUTIONAL: No fevers, chills. PULMONARY: No sob CARDIOVASCULAR: No chest pain/palpitations GASTROINTESTINAL: No nausea/vomiting. GENITOURINARY: No hematuria/dysuria. MUSCULOSKELETAL: No myagias/arthalgias. PSYCHIATRIC: The patient denies depression. NEUROLOGIC: No weakness Constitutional: alert, oriented Head: normocephalic ENMT: mucosa pink and moist Neck: supple, jvd (9 cm water) Respiratory: clear to auscultation Cardiovascular: regular rate and rhythm Gastrointestinal: soft, non-tender Musculoskeletal: muscle tone (normal) Extremities: edema (none), other (persistent swelling of UE) 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: other (No focal deficits) Labs Result Diagram: 09/25/18 0854 09/27/18 0455 Results 24hrs Laboratory Tests Test 09/26/18 20:27 09/27/18 04:55 Urine Color YELLOW Urine Clarity SLIGHTLY CLOUDY A Urine pH 6.0 Urine Specific [place] 1.018 Urine Ketones NEGATIVE Urine Nitrite NEGATIVE Urine Bilirubin NEGATIVE Urine Urobilinogen 1+ H Urine Leukocyte Esterase 2+ H Urine Microscopic RBC 1 Urine Microscopic WBC 118 H Urine Hemoglobin NEGATIVE Urine Random Sodium < 13 L Urine Random Potassium 92.4 Urine Glucose NEGATIVE Urine Total Protein NEGATIVE Sodium Level 133 L Potassium Level 4.4 Chloride Level 95 L Carbon Dioxide Level 32 H Anion Gap 6 Blood Urea Nitrogen 30 H Creatinine 0.60 Est Glomerular Filtrat Rate mL/min > 60 Glucose Level 100 Calcium Level 8.4 Medications Medications Current Medications Acetaminophen (Tylenol Tab) 500 mg Q6H PRN PO MILD PAIN(1-3)OR ELEVATED TEMP Last administered on 09/20/18 22:55; Admin Dose 500 MG; Start 09/09/18 at 22:30 Anastrozole (Arimidex) 1 mg DAILY PO Last administered on 09/27/18 09:22; Admin Dose 1 MG; Start 09/10/18 at 09:00 Carvedilol (Coreg) 3.125 mg BID PO Last administered on 09/26/18 22:29; Admin Dose 3.125 MG; Start 09/09/18 at 22:30 Docusate Sodium (Colace) 200 mg BID PO Last administered on 09/27/18 09:12; Admin Dose 200 MG; Start 09/09/18 at 22:30 Escitalopram Oxalate (Lexapro) 10 mg DAILY PO Last administered on 09/27/18 09:14; Admin Dose 10 MG; Start 09/10/18 at 09:00 Ondansetron HCl (Zofran Tab) 4 mg Q6H PRN PO NAUSEA AND/OR VOMITING Last administered on 09/20/18 08:37; Admin Dose 4 MG; Start 09/09/18 at 22:30 Pantoprazole (Protonix Tab) 40 mg AC BREAKFAST PO Last administered on 09/27/18 08:42; Admin Dose 40 MG; Start 09/10/18 at 07:00 Polyethylene Glycol (Miralax) 17 gm BID PO Last administered on 09/27/18 09:20; Admin Dose 17 GM; Start 09/09/18 at 22:30 Spironolactone (Aldactone) 50 mg DAILY PO Last administered on 09/27/18 09:18; Admin Dose 50 MG; Start 09/13/18 at 18:00 Potassium Chloride (Klor-Con 20) 20 meq BID PO Last administered on 09/27/18 09:13; Admin Dose 20 MEQ; Start 09/15/18 at 21:00 Albuterol/ Ipratropium (Duoneb) 3 ml Q8H RESP THERAPY PRN HHN SHORTNESS OF BREATH Last administered on 09/15/18 16:09; Admin Dose 3 ML; Start 09/15/18 at 14:30 Ondansetron HCl (Zofran Inj) 4 mg Q6H PRN IV NAUSEA AND/OR VOMITING Last administered on 09/22/18 05:09; Admin Dose 4 MG; Start 09/15/18 at 14:30 Oxycodone HCl (Oxycontin) 20 mg Q12 PO Last administered on 09/27/18 09:24; Admin Dose 20 MG; Start 09/15/18 at 21:00 Olopatadine HCl (Patanol 0.1% Oph) 1 drop BID BOTH EYES Last administered on 09/27/18 09:18; Admin Dose 1 DROP; Start 09/16/18 at 21:00 Loratadine (Claritin) 10 mg DAILY PO Last administered on 09/27/18 09:11; Admi n Dose 10 MG; Start 09/17/18 at 09:00 Furosemide (Lasix) 40 mg BID DIURETICS IV Last administered on 09/27/18 04:56; Admin Dose 40 MG; Start 09/23/18 at 18:00 Acetaminophen/ Hydrocodone Bitart ([place] (5/325)) 1 tab Q8 PRN PO PAIN LEVEL 7- 10 Last administered on 09/27/18 16:27; Admin Dose 1 TAB; Start 09/24/18 at 08:00 Lidocaine (Lidoderm) 2 patch DAILY TD Last administered on 09/27/18 09:20; A dmin Dose 2 PATCH; Start 09/26/18 at 17:30 Sodium Chloride (Nacl) 3 gm BID WITH MEALS PO Last administered on 09/27/18at 17:55; Admin Dose 3 GM; Start 09/26/18 at 18:00; Stop 09/28/18 at 10:00 KAMILA TERESA Sep 27, 2018 18:07
[2018-09-27 19:54] VITALS: BP 110/60; PULSE 103; RESP 18
--- NOTE | 2018-09-27 21:59 | PN ---
Date/Time of Note Date/Time of Note DATE: 09/27/18 TIME: 21:48 Assessment/Plan VTE Prophylaxis Risk score (from Nsg)>0 risk: 7 SCD applied (from Ns): No SCD contraindicated: low risk/ambulating Pharmacological prophylaxis: LMWH Lines/Catheters IV Catheter Type (from Nrsg): Peripheral IV Central line still needed: No Urinary Cath still in place: No Assessment/Plan Hospital Course S/p thoracentesis with re-occumulation of fluid. Status post third thoracentesis with evacuation of a 700 cc of fluid. Doing well. Assessment/Plan 1. PRIMARY ADENOCARCINOMA of the left breast. MULTIPLE BONY METS, PULMONARY METS;LIVER METS CHEMO ON HOLD; PT HAS A VERY GOOD RESPONSE TO CHEMO AND AI 2. Severe pain in the interscapular and lumbar sacral area most probably metastatic lesion possible femoral fracture. pathologic fracture of T9 with 60% of loss of height. Neurosurgical f/u. 3. Obesity. 4. Weight loss 60 pounds during the last 2 years by diet 5. PMS. 6. Myopia. 7. Anemia chronic disease with a drop of her hematocrit to 27 and regaining to 30 without any measures. Latest results 28. Protonix was added. Today hematocrit is 26. Will recheck tomorrow 8. Anxiety disorder. Claustrophobia. Increase Ativan to 1 mg every 8 as needed at Lexapro 10 mg daily. 9. Posttraumatic stress disorder. 10. Pain in the left forearm with a history of fracture of ulna and radius. 11. Tachycardia 12. Hypoxemia at night marginal improved after 2 L of nasal cannula oxygen. 13. Deconditioning 14. 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 15. Pain syndrome. Today the most painful zone is in the right hip area. X- ray had show possible fracture of the neck of the right hip. CT of the pelvis and right hip planned. 16. Hyponatremia-persists; hypokalemia after massive diuresis.Recheck and supplement. 17. Leucopenia-improved. 18. Neutropenia with occasional fever and chills. Last chemotherapy 5 days ago. 19. Hypoalbuminemia. 20.Right sided cp after catheter insertion and correction less discomfort. 21. Decreased edema both lower extremities with hypotension-improving 22.Swelling of the left forearm-persist. Now no erythema. 23.bilateral pleural effusions ; plan to perform tap tomorrow morning preferably from the right side. 24. Systolic over diastolic congestive heart failure with a right more than left lower extremity swelling with no DVT in latest venous Doppler. 25. Pain syndrome 26. Hyponatremia not corrected by giving 4 g of sodium chloride daily. Increa se the dose to 6 mg today and tomorrow Result Diagram: 09/25/18 0854 09/27/18 0455 Results 24hrs Laboratory Tests Test 09/27/18 04:55 Sodium Level 133 L Potassium Level 4.4 Chloride Level 95 L Carbon Dioxide Level 32 H Anion Gap 6 Blood Urea Nitrogen 30 H Creatinine 0.60 Est Glomerular Filtrat Rate mL/min > 60 Glucose Level 100 Calcium Level 8.4 Subjective 24 Hr Interval Summary Free Text/Dictation Pain in the right hip patient was explained. The presence of a chronic nondisplaced fracture which is pathologic in nature of the right hip but diagnosed by CT and MRI. Presence of ascitic fluid in the pelvis was discussed too. Constitutional: disoriented, febrile, poor po, requiring IVF, requiring O2; No no complaints, No improved, No chills, No diaphoresis, No other Eyes: discharge; No no complaints, No pain, No redness, No visual change, No other ENT: pain, congestion, dysphagia, sore throat Respiratory: cough, shortness of breath; No no complaints, No pain, No pleuritic pain, No sputum, No wheezing, No other Cardiovascular: chest pain, lightheadedness, orthopenea, palpitations, paroxysmal nocturnal dyspnea; No no complaints, No edema, No other Gastrointestinal: constipation, decreased appetite, flatus, nausea; No no complaints, No pain, No blood, No diarrhea, No passing stool, No vomiting, No other Genitourinary: dysuria, discharge, hematuria; No no complaints, No bleeding, No flank pain, No other Musculoskeletal: back pain, bone/joint pain, neck pain, restricted range of motion; No no complaints, No swelling, No other Skin: laceration, pruritis; No no complaints, No bruising, No erythema, No rash, No skin lesions, No other Neurologic: confusion, dizziness, focal-weakness, headache; No no complaints, No syncope, No seizure, No other Endocrine: dry skin, temp intolerance; No no complaints, No polyuria, No polydypsia, No other Lymphatic: No no complaints, No adenopathy, No tender nodes, No lymphadema, No other Exam/Review of Systems Exam Vitals Vital Signs Date Temp Pulse Resp B/P (MAP) Pulse Ox O2 O2 Flow FiO2 Time Delivery Rate 09/27/18 98.1 103 18 110/60 97 Room Air 19:54 (77) 09/26/18 2.0 08:00 Intake and Output 09/26/18 09/26/18 09/27/18 1515:00 23:00 07:00 IntakeIntake Total 200 ml 240 ml 440 ml BalanceBalance 200 ml 240 ml 440 ml Constitutional: alert, oriented, well developed, distress, frail, other; No non-verbal, No obese Psych: nl mood/affect, anxiety, depression; No no complaints, No confusion, No suicidal, No other Head: normocephalic, atraumatic; No lacerations, No hematomas, No other Eyes: EOMI, nl lids, PERRL; No nl conjunctiva, No nl sclera, No icteric, No fundi, disc, No other ENMT: nl external ears & nose, nl lips & teeth, tympanic membranes; No nl nasal mucosa & septum, No mucosa pink and moist, No intubated, No other Neck: jvd, bruits; No supple, No non-tender, No masses, No thyromegaly, No nuchal rigidity, No other Respiratory: normal air movement, diminished breath sounds, intercostal retraction; No clear to auscultation, No congested cough, No crackles/rales, No labored breathing, No respirations, No tactile fremitus, No wheezing, No other Cardiovascular: regular rate and rhythm, jugular venous distention (JVD), systolic murmur; No nl pulses, No bruits, No diastolic murmur, No edema, No gallop, No i rregular rhythm, No murmurs/extra sounds, No rub, No S3, No S4, No other Gastrointestinal: soft, ascites; No nl liver, spleen, No non-tender, No bowel sounds, No distended, No firm, No hepatomegaly, No mass, No rebound or guarding, No splenomegaly, No surgical scars, No tender, No other Musculoskeletal: joint tenderness, muscle tone, muscle weakness; No nl extremities to inspection, No nl gait and stance, No range of motion, No spine non-tender, No swelling, No other Extremities: normal pulses, edema; No calf tenderness, No cyanosis, No clubbing, No pitting pedal edema, No palpable cord, No tenderness, No other Results Results 24hrs Laboratory Tests Test 09/27/18 04:55 Sodium Level 133 L Potassium Level 4.4 Chloride Level 95 L Carbon Dioxide Level 32 H Anion Gap 6 Blood Urea Nitrogen 30 H Creatinine 0.60 Est Glomerular Filtrat Rate mL/min > 60 Glucose Level 100 Calcium Level 8.4 Medications Medication Current Medications Acetaminophen (Tylenol Tab) 500 mg Q6H PRN PO MILD PAIN(1-3)OR ELEVATED TEMP Last administered on 09/20/18 22:55; Admin Dose 500 MG; Start 09/09/18 at 22:30 Anastrozole (Arimidex) 1 mg DAILY PO Last administered on 09/27/18 09:22; Admin Dose 1 MG; Start 09/10/18 at 09:00 Carvedilol (Coreg) 3.125 mg BID PO Last administered on 09/26/18 22:29; Admin Dose 3.125 MG; Start 09/09/18 at 22:30 Docusate Sodium (Colace) 200 mg BID PO Last administered on 09/27/18 09:12; Admin Dose 200 MG; Start 09/09/18 at 22:30 Escitalopram Oxalate (Lexapro) 10 mg DAILY PO Last administered on 09/27/18 09:14; Admin Dose 10 MG; Start 09/10/18 at 09:00 Ondansetron HCl (Zofran Tab) 4 mg Q6H PRN PO NAUSEA AND/OR VOMITING Last administered on 09/20/18 08:37; Admin Dose 4 MG; Start 09/09/18 at 22:30 Pantoprazole (Protonix Tab) 40 mg AC BREAKFAST PO Last administered on 09/27/18 08:42; Admin Dose 40 MG; Start 09/10/18 at 07:00 Polyethylene Glycol (Miralax) 17 gm BID PO Last administered on 09/27/18 09:20; Admin Dose 17 GM; Start 09/09/18 at 22:30 Spironolactone (Aldactone) 50 mg DAILY PO Last administered on 09/27/18 09:18; Admin Dose 50 MG; Start 09/13/18 at 18:00 Potassium Chloride (Klor-Con 20) 20 meq BID PO Last administered on 09/27/18 09:13; Admin Dose 20 MEQ; Start 09/15/18 at 21:00 Albuterol/ Ipratropium (Duoneb) 3 ml Q8H RESP THERAPY PRN HHN SHORTNESS OF BREATH Last administered on 09/15/18 16:09; Admin Dose 3 ML; Start 09/15/18 at 14:30 Ondansetron HCl (Zofran Inj) 4 mg Q6H PRN IV NAUSEA AND/OR VOMITING Last administered on 09/22/18 05:09; Admin Dose 4 MG; Start 09/15/18 at 14:30 Oxycodone HCl (Oxycontin) 20 mg Q12 PO Last administered on 09/27/18 09:24; Admin Dose 20 MG; Start 09/15/18 at 21:00 Olopatadine HCl (Patanol 0.1% Oph) 1 drop BID BOTH EYES Last administered on 09/27/18 09:18; Admin Dose 1 DROP; Start 09/16/18 at 21:00 Loratadine (Claritin) 10 mg DAILY PO Last administered on 09/27/18 09:11; Adm in Dose 10 MG; Start 09/17/18 at 09:00 Furosemide (Lasix) 40 mg BID DIURETICS IV Last administered on 09/27/18 04:56; Admin Dose 40 MG; Start 09/23/18 at 18:00 Acetaminophen/ Hydrocodone Bitart ([place] (5/325)) 1 tab Q8 PRN PO PAIN LEVEL 7- 10 Last administered on 09/27/18 16:27; Admin Dose 1 TAB; Start 09/24/18 at 08:00 Lidocaine (Lidoderm) 2 patch DAILY TD Last administered on 09/27/18 09:20; Admin Dose 2 PATCH; Start 09/26/18 at 17:30 Sodium Chloride (Nacl) 3 gm BID WITH MEALS PO Last administered on 09/27/18 17:55; Admin Dose 3 GM; Start 09/26/18 at 18:00; Stop 09/28/18 at 10:00 RUSS JEROME MD Sep 27, 2018 21:59
--- NOTE | 2018-09-27 22:29 | CONS ---
Assessment/Plan Assessment/Plan Hospital Course (Demo Recall) METASTATIC BREAST CANCER WITH PRIMARY ADENOCARCINOMA IN the left breast. MULTIPLE BONY METS, PULMONARY METS, LIVER METS CHEMO ON HOLD PT HAS A VERY GOOD RESPONSE TO CHEMO AND AI CONT AI FOR NOW CT ABD FOR RESTAGING 08.27.18- noted , stable CT CHEST- STABLE/IMPROVING 1. Moderate bilateral pleural effusions with adjacent lung base consolidation/atelectasis. 2. Moderate pericardial effusion. 3. Decreased size of previously prominent mediastinal lymph nodes. Decreased size of sub centimeter axillary lymph nodes. 4. Stable nonspecific pulmonary nodules as described above. 5. Stable soft tissue nodule of the anterior left chest wall/breast. 6. Redemonstrated diffuse sclerotic metastatic osseous lesions with stable compression deformities of the thoracic spine. 7. Nodular contour of the liver with multiple hypoattenuating masses, grossly similar to prior exam. CYTOLOGY-NEG CARD - TO MONITOR FOR PERICARDIAL TAMPONADE, FOR NOW NO NEED TO DO PERICARDIOCENTESIS R HIP PAIN MRI R HIP- nondisplaced pathological fracture of the right femoral head merging with the known metastatic lesion. Interval development of synovitis and a large joint effusion as well as psoas bursitis. CT PELVIS- Subacute to chronic pathologic subcapital fracture of the right femoral neck. ORTHO EVAL PAIN CONTROL Leucopenia- post chemo NEUPOGEN- DC monitor closely post Neutropenia with occasional fever and chills. Anemia chronic disease SOB PLEURAL EFFUSIONS post thoracentesis cytology -NEG ON 09.18.18 Fluid overload diuretic cardiology F-UP Congestive heart failure exacerbation, diastolic by most recent echo, acute on chronic.-neg trop x 3. Echo this admit EF 60/small pericardia effusion Hypotension, currently borderline-overall improved Anasarca. Severe pain in the interscapular and lumbar sacral area most probably metastatic lesion possible femoral fracture. pathologic fracture of T9 with 60% of loss of height. Obesity. Weight loss 60 pounds during the last 2 years PMS. Myopia. Anxiety disorder. Claustrophobia. Posttraumatic stress disorder. Pain in the left forearm with a history of fracture of ulna and radius. Tachycardia Hypoxemia at night marginal improved after 2 L of nasal cannula oxygen. Deconditioning Pain syndrome. Today the most painful zone is in the right hip area. X-ray did not show any fractures. Hyponatremia- resolved Hypoalbuminemia Right sided cp after catheter insertion and correction less discomfort. Decreased edema both lower extremities with hypotension-improving Swelling of the left forearm-persist. Consultation Date/Type/Reason Admit Date/Time Sep 09, 2018 at 14:53 Initial Consult Date 09/09/[address] [facility] Requesting Provider: RUSS JEROME MD Date/Time of Note DATE: 09/27/18 TIME: 22:24 24 HR Interval Summary Free Text/Dictation all noted + pain Exam/Review of Systems Exam Vitals Vital Signs Date Temp Pulse Resp B/P (MAP) Pulse Ox O2 O2 Flow FiO2 Time Delivery Rate 09/27/18 98.1 103 18 110/60 97 Room Air 19:54 (77) 09/26/18 2.0 08:00 Intake and Output 09/26/18 09/26/18 09/27/18 1515:00 23:00 07:00 IntakeIntake Total 200 ml 240 ml 440 ml BalanceBalance 200 ml 240 ml 440 ml Exam Constitutional: alert, oriented, well developed, distress, frail Psych: anxiety, depression; No no complaints, No nl mood/affect, No confusion, No suicidal, No other Head: normocephalic, atraumatic Eyes: EOMI, nl lids; No nl conjunctiva, No nl sclera, No PERRL, No icteric, No fundi, disc, No other ENMT: No nl external ears & nose, No nl lips & teeth, No nl nasal mucosa & septum, No mucosa pink and moist, No intubated, No tympanic membranes, No other Neck: supple, jvd, bruits; No non-tender, No masses, No thyromegaly, No nuchal rigidity, No other Respiratory: congested cough, diminished breath sounds (Left more prominent than the right side.); No clear to auscultation, No normal air movement, No crackles/rales, No intercostal retraction, No labored breathing, No respirations, No tactile fremitus, No wheezing, No other Cardiovascular: No regular rate and rhythm, No nl pulses, No bruits, No diastolic murmur, No edema, No gallop, No irregular rhythm, No jugular venous distention (JVD), No murmurs/extra sounds, No rub, No systolic murmur, No S3, No S4, No other Gastrointestinal: soft, nl liver, spleen, distended Extremities: edema (Left upper extremity more prominent in the right.), LE BL Results Result Diagram: 09/25/18 0854 09/27/18 0455 Results 24hrs Laboratory Tests Test 09/27/18 04:55 Sodium Level 133 L Potassium Level 4.4 Chloride Level 95 L Carbon Dioxide Level 32 H Anion Gap 6 Blood Urea Nitrogen 30 H Creatinine 0.60 Est Glomerular Filtrat Rate mL/min > 60 Glucose Level 100 Calcium Level 8.4 Imaging Imaging PROCEDURE: CT pelvis without contrast. CLINICAL INDICATION: Right hip pain. History of osseous metastasis. Rule out fracture. TECHNIQUE: CT scan of the pelvis without contrast was performed on multi-slice CT scanner. The patient was scanned without intravenous contrast. Coronal and sagittal reformatted images were obtained from the axial source images. Images were reviewed on a high-resolution PACS workstation. DICOM images are available. DLP = 630.3 mGy-cm. CTDIVol = 19.6 mGy. One or more of the following dose reduction techniques were used: Automated exposure control. Adjustment of the mA and/or kV according to patient size. Use of iterative reconstruction technique. COMPARISON: None. FINDINGS: The small bowel loops situated within the pelvis are unremarkable. The pelvic organs are normal. The pelvic sidewalls and inguinal regions are clear. The sigmoid colon and rectum are normal . . There is trace free fluid in the pelvis. Mild diffuse subcutaneous edema is seen. A small fat-containing umbilical hernia is present. Diffuse osteosclerotic lesions are scattered throughout the bony structures consistent with osteoblastic metastasis. There is increased sclerosis of the right femoral neck with a subacute or chronic subcapital fracture of the right femoral neck consistent with a pathologic fracture. There are no other fractures identified. IMPRESSION: 1. Subacute to chronic pathologic subcapital fracture of the right femoral neck. 2. Extensive osteoblastic metastasis. 3. Diffuse subcutaneous edema. 4. Trace free fluid in the pelvis. Ordering MD: DES DUNAWAY MD [facility]: MRI OF THE RIGHT HIP CLINICAL INDICATION: History breast cancer. Prior hip x-ray 09/25/2018. Hip pain. TECHNIQUE: Multiple MRI images were obtained in all three planes utilizing multiple pulse sequences. Images were interpreted on high-resolution PACS system. COMPARISON: MRI dated 04/27/2018 and plain film dated 09/25/2018. FINDINGS: Again seen are diffuse metastatic lesions seen throughout the visualized portions of the pelvis, lower lumbar spine and both femurs. There is extensive involvement of the right proximal femur with cortical and medullary involvement. There may be small soft tissue components of the right femur. Intra-articular: There is now a nondisplaced pathological fracture of the femoral head that merges with the known metastatic lesion. Metastatic lesion is seen anteriorly in the nondisplaced pathological fractures seen more posteriorly on coronal unilateral image number 12 and bilateral image number 16. There is mild to moderate chondral loss about the humeral head and acetabulum. There is a large joint effusion and there is synovitis. Extra-articular: The gluteus medius and gluteus minimus insertions are intact, as are the rectus femoris and iliopsoas insertions. There is now psoas bursitis. There is no bulky pelvic lymphadenopathy. Limited assessment of left hip demonstrates no high-grade chondral defects. The fat planes around the sciatic nerves are preserved bilaterally. IMPRESSION: 1. Interval development of a nondisplaced pathological fracture of the right femoral head merging with the known metastatic lesion. 2. Interval development of synovitis and a large joint effusion as well as psoas bursitis. 3. Little overall change in extensive osseous metastatic disease seen diffusely throughout the visualized portions of the lower lumbar spine, sacrum, pelvis and both hips noting extensive involvement of the right femur. 4. No large soft tissue component is identified. Medications Medication Current Medications Acetaminophen (Tylenol Tab) 500 mg Q6H PRN PO MILD PAIN(1-3)OR ELEVATED TEMP Last administered on 09/20/18 22:55; Admin Dose 500 MG; Start 09/09/18 at 22:30 Anastrozole (Arimidex) 1 mg DAILY PO Last administered on 09/27/18 09:22; Admin Dose 1 MG; Start 09/10/18 at 09:00 Carvedilol (Coreg) 3.125 mg BID PO Last administered on 09/27/18 21:46; Admin Dose 3.125 MG; Start 09/09/18 at 22:30 Docusate Sodium (Colace) 200 mg BID PO Last administered on 09/27/18 21:46; Admin Dose 200 MG; Start 09/09/18 at 22:30 Escitalopram Oxalate (Lexapro) 10 mg DAILY PO Last administered on 09/27/18 09:14; Admin Dose 10 MG; Start 09/10/18 at 09:00 Ondansetron HCl (Zofran Tab) 4 mg Q6H PRN PO NAUSEA AND/OR VOMITING Last administered on 09/20/18 08:37; Admin Dose 4 MG; Start 09/09/18 at 22:30 Pantoprazole (Protonix Tab) 40 mg AC BREAKFAST PO Last administered on 09/27/18 08:42; Admin Dose 40 MG; Start 09/10/18 at 07:00 Polyethylene Glycol (Miralax) 17 gm BID PO Last administered on 09/27/18 09:20; Admin Dose 17 GM; Start 09/09/18 at 22:30 Spironolactone (Aldactone) 50 mg DAILY PO Last administered on 09/27/18 09:18; Admin Dose 50 MG; Start 09/13/18 at 18:00 Potassium Chloride (Klor-Con 20) 20 meq BID PO Last administered on 09/27/18 21:47; Admin Dose 20 MEQ; Start 09/15/18 at 21:00 Albuterol/ Ipratropium (Duoneb) 3 ml Q8H RESP THERAPY PRN HHN SHORTNESS OF BREATH Last administered on 09/15/18 16:09; Admin Dose 3 ML; Start 09/15/18 at 14:30 Ondansetron HCl (Zofran Inj) 4 mg Q6H PRN IV NAUSEA AND/OR VOMITING Last administered on 09/22/18 05:09; Admin Dose 4 MG; Start 09/15/18 at 14:30 Oxycodone HCl (Oxycontin) 20 mg Q12 PO Last administered on 09/27/18 21:47; Admin Dose 20 MG; Start 09/15/18 at 21:00 Olopatadine HCl (Patanol 0.1% Oph) 1 drop BID BOTH EYES Last administered on 09/27/18 21:46; Admin Dose 1 DROP; Start 09/16/18 at 21:00 Loratadine (Claritin) 10 mg DAILY PO Last administered on 09/27/18 09:11; Admin Dose 10 MG; Start 09/17/18 at 09:00 Furosemide (Lasix) 40 mg BID DIURETICS IV Last administered on 09/27/18 04:56; Admin Dose 40 MG; Start 09/23/18 at 18:00 Acetaminophen/ Hydrocodone Bitart ([place] (5/325)) 1 tab Q8 PRN PO PAIN LEVEL 7- 10 Last administered on 09/27/18at 16:27; Admin Dose 1 TAB; Start 09/24/18 at 08:00 Lidocaine (Lidoderm) 2 patch DAILY TD Last administered on 09/27/18 09:20; Admin Dose 2 PATCH; Start 09/26/18 at 17:30 Sodium Chloride (Nacl) 3 gm BID WITH MEALS PO Last administered on 09/27/18at 17:55; Admin Dose 3 GM; Start 09/26/18 at 18:00; Stop 09/28/18 at 10:00 DSE DUNAWAY MD Sep 27, 2018 22:29
[2018-09-28] MEDS: HYDROCODONE/APAP (5/325) TAB PO PRN ×2 (06:20→22:14)
[2018-09-28] MEDS: FUROSEMIDE 40 MG INJ IV SCH ×2 (06:20→18:00)
[2018-09-28] MEDS: PANTOPRAZOLE (EC) 40 MG TAB PO SCH (06:20)
[2018-09-28 08:05] VITALS: BP 100/59; PULSE 89; RESP 18
[2018-09-28] MEDS: SODIUM CHLORIDE 1 GM TAB PO SCH ×3 (08:55→21:07)
[2018-09-28] MEDS: SPIRONOLACTONE 50 MG TAB PO SCH (08:55)
[2018-09-28] MEDS: POTASSIUM CHLORIDE (SR) 20 MEQ TAB PO SCH ×2 (08:57→21:07)
[2018-09-28] MEDS: oxyCODONE (CR) 10 MG TAB [oxyCONTIN] PO SCH ×2 (08:58→21:15)
[2018-09-28] MEDS: DOCUSATE SODIUM 100 MG CAP PO SCH ×2 (08:58→21:07)
[2018-09-28] MEDS: LIDOCAINE 5% PATCH TD SCH (08:59)
[2018-09-28] MEDS: LORATADINE 10 MG TAB PO SCH (09:01)
[2018-09-28] MEDS: ESCITALOPRAM 10 MG TAB PO SCH (09:01)
[2018-09-28] MEDS: OLOPATADINE 0.1% 5 ML OPH BOTH EYES SCH ×2 (09:03→21:00)
[2018-09-28] MEDS: POLYETHYLENE GLYCOL 17 GM PACKET PO SCH ×2 (09:03→21:00)
[2018-09-28] MEDS: ANASTROZOLE 1 MG TAB PO SCH (09:04)
--- NOTE | 2018-09-28 09:13 | PN ---
Date/Time of Note Date/Time of Note DATE: 09/28/18 TIME: 09:09 Assessment/Plan VTE Prophylaxis Risk score (from Ns)>0 risk: 3 SCD applied (from Ns): No SCD contraindicated: patient refusal Pharmacological prophylaxis: LMWH Lines/Catheters IV Catheter Type (from [facility]): Peripheral IV Central line still needed: No Urinary Cath still in place: No Reason Cath still needed: urinary retention Assessment/Plan Hospital Course S/p thoracentesis with re-occumulation of fluid. Status post third thoracentesis with evacuation of a 700 cc of fluid. Doing well. Assessment/Plan 1. PRIMARY ADENOCARCINOMA of the left breast. MULTIPLE BONY METS, PULMONARY METS;LIVER METS CHEMO ON HOLD; PT HAS A VERY GOOD RESPONSE TO CHEMO AND AI 2. Severe pain in the interscapular and lumbar sacral area most probably metastatic lesion possible femoral fracture. pathologic fracture of T9 with 60% of loss of height. Neurosurgical f/u. 3. Obesity. 4. Weight loss 60 pounds during the last 2 years by diet 5. PMS. 6. Myopia. 7. Anemia chronic disease with a drop of her hematocrit to 27 and regaining to 30 without any measures. Latest results 28. Protonix was added. Today hematocrit is 26. Will recheck tomorrow 8. Anxiety disorder. Claustrophobia. Increase Ativan to 1 mg every 8 as needed at Lexapro 10 mg daily. 9. Posttraumatic stress disorder. 10. Pain in the left forearm with a history of fracture of ulna and radius. 11. Tachycardia 12. Hypoxemia at night marginal improved after 2 L of nasal cannula oxygen. 13. Deconditioning 14. 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 15. Pain syndrome. Today the most painful zone is in the right hip area. X- ray had show possible fracture of the neck of the right hip. CT of the pelvis and right hip planned. 16. Hyponatremia-persists; hypokalemia after massive diuresis.Recheck and supplement. 17. Leucopenia-improved. 18. Neutropenia with occasional fever and chills. Last chemotherapy 5 days ago. 19. Hypoalbuminemia. 20.Right sided cp after catheter insertion and correction less discomfort. 21. Decreased edema both lower extremities with hypotension-improving 22.Swelling of the left forearm-persist. Now no erythema. 23.bilateral pleural effusions ; plan to perform tap tomorrow morning preferably from the right side. 24. Systolic over diastolic congestive heart failure with a right more than left lower extremity swelling with no DVT in latest venous Doppler. 25. Pain syndrome 26. Hyponatremia not corrected by giving 4 g of sodium chloride daily. Increase the dose to 6 mg today and tomorrow Result Diagram: 09/25/18 0854 09/27/18 0455 Subjective 24 Hr Interval Summary Free Text/Dictation Swollen right leg. SOB improved. pain controlled if not moving. Constitutional: improved, poor po, requiring IVF, requiring O2; No no complaints, No chills, No diaphoresis, No disoriented, No febrile, No other Eyes: No no complaints, No pain, No discharge, No redness, No visual change, No other ENT: No no complaints, No bleeding, No pain, No congestion, No discharge, No dysphagia, No sore throat, No other Respiratory: cough, pleuritic pain, shortness of breath; No no complaints, No pain, No sputum, No wheezing, No other Cardiovascular: edema, lightheadedness, orthopenea, palpitations, paroxysmal nocturnal dyspnea; No no complaints, No chest pain, No other Gastrointestinal: constipation, decreased appetite, passing stool; No no complaints, No pain, No blood, No diarrhea, No flatus, No nausea, No vo miting, No other Genitourinary: dysuria; No no complaints, No bleeding, No discharge, No flank pain, No hematuria, No other Musculoskeletal: back pain, bone/joint pain, neck pain; No no complaints, No restricted range of motion, No swelling, No other Skin: No no complaints, No bruising, No erythema, No laceration, No pruritis, N o rash, No skin lesions, No other Neurologic: dizziness; No no complaints, No confusion, No focal-weakness, No headache, No syncope, No seizure, No other Exam/Review of Systems Exam Vitals Vital Signs Date Temp Pulse Resp B/P (MAP) Pulse Ox O2 O2 Flow FiO2 Time Delivery Rate 09/28/18 97.9 89 18 100/59 92 08:05 (73) 09/27/18 Nasal 2.0 21:15 Cannula Intake and Output 09/27/18 09/27/18 09/28/18 1414:59 22:59 06:59 IntakeIntake Total 920 ml 700 ml OutputOutput Total 250 ml 350 ml BalanceBalance 670 ml 350 ml Constitutional: alert, oriented, well developed, distress, frail, obese; No non-verbal, No other Psych: anxiety; No no complaints, No nl mood/affect, No confusion, No depression, No suicidal, No other Head: normocephalic, atraumatic Eyes: EOMI, nl lids, PERRL; No nl conjunctiva, No nl sclera, No icteric, No fundi, disc, No other ENMT: No nl external ears & nose, No nl lips & teeth, No nl nasal mucosa & septum, No mucosa pink and moist, No intubated, No tympanic membranes, No other Neck: non-tender, nuchal rigidity; No supple, No jvd, No bruits, No masses, No thyromegaly, No other Respiratory: clear to auscultation, normal air movement, diminished breath sounds Cardiovascular: regular rate and rhythm, nl pulses, systolic murmur; No bruits, No diastolic murmur, No edema, No gallop, No irregular rhythm, No jugular venous distention (JVD), No murmurs/extra sounds, No rub, No S3, No S4, No other Gastrointestinal: soft, nl liver, spleen, bowel sounds, distended; No non-tender, No ascites, No firm, No hepatomegaly, No mass, No rebound or guarding, No splenomegaly, No surgical scars, No tender, No other Musculoskeletal: nl gait and stance (needs help. Worsening of right hip joint area pain is making her walking risky. ), joint tenderness (right hip.); No nl extremities to inspection, No muscle tone, No muscle weakness, No range of motion, No spine non-tender, No swelling, No other Extremities: normal pulses, edema (right more than left leg.); No calf tenderness, No cyanosis, No clubbing, No pitting pedal edema, No palpable cord, No tenderness, No other Medications Medication Current Medications Acetaminophen (Tylenol Tab) 500 mg Q6H PRN PO MILD PAIN(1-3)OR ELEVATED TEMP Last administered on 09/20/18at 22:55; Admin Dose 500 MG; Start 09/09/18 at 22:30 Anastrozole (Arimidex) 1 mg DAILY PO Last administered on 09/28/18at 09:04; Admin Dose 1 MG; Start 09/10/18 at 09:00 Carvedilol (Coreg) 3.125 mg BID PO Last administered on 09/27/18 21:46; Admin Dose 3.125 MG; Start 09/09/18 at 22:30 Docusate Sodium (Colace) 200 mg BID PO Last administered on 09/28/18 08:58; Admin Dose 200 MG; Start 09/09/18 at 22:30 Escitalopram Oxalate (Lexapro) 10 mg DAILY PO Last administered on 09/28/18 09:01; Admin Dose 10 MG; Start 09/10/18 at 09:00 Ondansetron HCl (Zofran Tab) 4 mg Q6H PRN PO NAUSEA AND/OR VOMITING Last administered on 09/20/18 08:37; Admin Dose 4 MG; Start 09/09/18 at 22:30 Pantoprazole (Protonix Tab) 40 mg AC BREAKFAST PO Last administered on 09/28/18 06:20; Admin Dose 40 MG; Start 09/10/18 at 07:00 Polyethylene Glycol (Miralax) 17 gm BID PO Last administered on 09/28/18 09:03; Admin Dose 17 GM; Start 09/09/18 at 22:30 Spironolactone (Aldactone) 50 mg DAILY PO Last administered on 09/28/18 08:55; Admin Dose 50 MG; Start 09/13/18 at 18:00 Potassium Chloride (Klor-Con 20) 20 meq BID PO Last administered on 09/28/18 08:57; Admin Dose 20 MEQ; Start 09/15/18 at 21:00 Albuterol/ Ipratropium (Duoneb) 3 ml Q8H RESP THERAPY PRN HHN SHORTNESS OF BREATH Last administered on 09/15/18 16:09; Admin Dose 3 ML; Start 09/15/18 at 14:30 Ondansetron HCl (Zofran Inj) 4 mg Q6H PRN IV NAUSEA AND/OR VOMITING Last administered on 09/22/18 05:09; Admin Dose 4 MG; Start 09/15/18 at 14:30 Oxycodone HCl (Oxycontin) 20 mg Q12 PO Last administered on 09/28/18 08:58; Admin Dose 20 MG; Start 09/15/18 at 21:00 Olopatadine HCl (Patanol 0.1% Oph) 1 drop BID BOTH EYES Last administered on 09/28/18 09:03; Admin Dose 1 DROP; Start 09/16/18 at 21:00 Loratadine (Claritin) 10 mg DAILY PO Last administered on 09/28/18 09:01; Admin Dose 10 MG; Start 09/17/18 at 09:00 Furosemide (Lasix) 40 mg BID DIURETICS IV Last administered on 09/28/18 06:20; Admin Dose 40 MG; Start 09/23/18 at 18:00 Acetaminophen/ Hydrocodone Bitart ([place] (5/325)) 1 tab Q8 PRN PO PAIN LEVEL 7- 10 Last administered on 09/28/18 06:20; Admin Dose 1 TAB; Start 09/24/18 at 08:00 Lidocaine (Lidoderm) 2 patch DAILY TD Last administered on 09/28/18 08:59; Admin Dose 2 PATCH; Start 09/26/18 at 17:30 Sodium Chloride (Nacl) 3 gm BID WITH MEALS PO Last administered on 09/28/18 08:55; Admin Dose 3 GM; Start 09/26/18 at 18:00; Stop 09/28/18 at 10:00 RUSS JEROME MD Sep 28, 2018 09:13
--- NOTE | 2018-09-28 13:24 | CONS ---
DATE OF ADMISSION: 09/09/2018 DATE OF CONSULTATION: 09/28/2018 PHYSICIAN REQUESTING CONSULT: Dr. Jerome. REASON FOR CONSULTATION: Hyponatremia. TYPE OF CONSULTATION: Nephrology consultation. HISTORY OF PRESENT ILLNESS: This is a 58-year-old female with a past medical history of adenocarcino ma of the left breast with metastasis to the pulmonary, hepatic and bone. The patient has history of pleural effusions, neutropenia and anemia who presented to the [facility] emergency room wi th left arm and right leg swelling and shortness of breath. The patient states for the past 1 week s he has had increased shortness of breath. She denied any chest pain or palpitations. The patient up on arrival was diagnosed with diastolic heart failure. The patient was initiated on diuretic therapy with clinical improvement in shortness of breath. The patient also noted to be hypotensive during h ospital course, which improved after adjustment of blood pressure medications. The patient also duri ng the hospital course, was receiving pain medications and Neupogen for control her leukopenia and ch ronic cancer pain. In terms of the patient's sodium history, on admission, the patient was normonatremic with sodium 135 , which patient developed hyponatremia during the hospital course. The patient's sodium level is cur rently now at 133 mEq per liter. During this time, the patient has been receiving diuretic therapy. The patient denies any lethargy and weakness. Denies any seizures. PAST MEDICAL HISTORY: As stated above, history of metastatic breast CA, history of GERD, history of hypertension, history of pneumonia, history of congestive heart failure. PAST SURGICAL HISTORY: The patient had multiple surgeries. Please see list. ALLERGIES: NO KNOWN DRUG ALLERGIES. SOCIAL HISTORY: Does not drink, smoke or do drugs. FAMILY HISTORY: No family history of kidney disease. MEDICATIONS: The patient's medications have been reviewed. REVIEW OF SYSTEMS: A 14-point review of systems was conducted. Pertinent positives stated in HPI, o therwise negative. PHYSICAL EXAMINATION: VITAL SIGNS: Blood pressure is 100/59, respiration 18, pulse 89, temperature 97.0. HEENT: Head is normocephalic. NECK: Supple. HEART: Regular rate. LUNGS: Show diminished breath sounds at the base. ABDOMEN: Soft, nontender to palpation. No rebound or guarding. EXTREMITIES: Negative for clubbing, cyanosis. Positive edema. DERMATOLOGIC: No rashes. MUSCULOSKELETAL: No joint effusion. NEUROLOGIC: No change in exam. No focal deficits. MEDICATIONS: The patient's medications have been reviewed. LABORATORY DATA: Has been reviewed. Patient has a urinary sodium less than 13. Sodium 133, BUN 30, creatinine 0.60. White count 5.2, hemoglobin 10.5, platelet count 182. Uric acid level 7.0. ASSESSMENT AND PLAN: This is a 58-year-old female who presents with: 1. Acute hyponatremia. Etiology may be multifactorial, possibly due to congestive heart failure. Q uestionable volume depletion. The patient's initial urinalysis shows a phenol less than 1% which can be seen in a prerenal state such as CHF causing decreased renal perfusion versus intravascular volum e depletion. The patient's sodium levels have been fluctuating on diuretic therapy. The patient's s odium levels have improved in last 24 hours. Additionally, hypokalemia is a contributing factor to t he hyponatremia which has been corrected. Plan at this point is to repeat urine electrolytes. We wi ll repeat urine sodium, urine osmolarity. Will check a uric acid level, check a TSH level, a.m. abner isol level. Will monitor sodium levels. At this time, limit free water intake. Continue gentle diu retic therapy at this time. 2. Hypokalemia. Continue to monitor and replete. 3. Alkalosis possibly metabolic due to diuretic therapy. Continue to monitor. Consider deescalatin g diuretics or giving Diamox. 4. Acute hypoxemic respiratory failure secondary to congestive heart failure, improving. Continue t o monitor. 5. Left breast cancer with multiple metastases. The patient is being followed by oncology, will fol low up recommendations. 6. Anemia. Monitor hemoglobin and hematocrit levels. 7. Volume overload. Etiology may be secondary to congestive heart failure versus third spacing due to hypoalbuminemic state. Continue to monitor. Continue diuretic therapy. 8. Thrombocytopenia. Continue to monitor. 9. Chronic pain syndrome. Continue current pain regimen. Thank Dr. Jerome, for this interesting consult. It will be a pleasure to follow patient with you throughout the hospital course. Dictated By: ANDRÉS TATUM DO NR/NTS Conf#: [id number] DID#: [id number] CC: RUSS JEROME MD;*EndCC*
[2018-09-28 15:45] VITALS: BP 91/67; PULSE 94; RESP 18
--- NOTE | 2018-09-28 16:45 | CONS ---
Assessment/Plan Assessment/Plan Assessment/Plan (Daily) Congestive heart failure exacerbation, Diastolic Anasarca. Metastatic breast carcinoma. Leukopenia. Thrombocytopenia Pericardial effusion Continue Coreg Continue Lasix and Aldactone Continue Protonix Consultation Date/Type/Reason Admit Date/Time Sep 09, 2018 at 14:53 Type of Consult Cardiology Date/Time of Note DATE: 09/28/18 TIME: 16:43 Past Medical History Home Meds Reported Medications Potassium Chloride* (Potassium Chloride*) 20 Meq Tablet.er, 20 MEQ PO DAILY, TAB.SA 09/09/18 Epoetin Cr (Procrit) 4,000 Unit/1 Ml Vial, 4000 UNIT IJ Q FRI, VIAL 7:00AM-7:00PM,HOLD IF HGB>10 09/09/18 Ondansetron Hcl* (Zofran*) 4 Mg Tab, 4 MG PO Q6H PRN for NAUSEA AND OR VOMITING, TAB 08/22/18 Pantoprazole* (Pantoprazole*) 40 Mg Tablet.dr, 40 MG PO AC BREAKFAST, TAB 08/22/18 Oxycodone Hcl* (Oxycontin*) 20 Mg Tab.er.12h, 20 MG PO Q12, TAB 08/22/18 Amlodipine Besylate* (Norvasc*) 5 Mg Tablet, 5 MG PO BID, TAB HOLD FOR SBP <110. 08/22/18 Polyethylene Glycol* (Miralax*) 17 Gm Powd.pack, 17 GM PO BID, #60 PACKET ON -12:00 TO 4:00PM 08/22/18 Magnesium Hydroxide* (Milk Of Magnesia*) 400 Mg/5 Ml Oral.susp, 30 ML PO DAILY, ML 08/22/18 Escitalopram Oxalate* (Lexapro*) 10 Mg Tablet, 10 MG PO DAILY, #30 TAB 08/22/18 Furosemide* (Furosemide*) 20 Mg Tablet, 20 MG PO DAILY, #60 TAB HOLD FOR SBP <110. 08/22/18 Docusate Sodium* (Colace*) 100 Mg Capsule, 200 MG PO BID, #60 CAP 08/22/18 Carvedilol* (Carvedilol*) 3.125 Mg Tablet, 3.125 MG PO BID, #60 TAB HOLD FOR SBP <110 OR SD <60. GIVE WITH FOOD. 08/22/18 Lactose-Free Food (Boost High Protein) 237 Ml Liquid, 120 ML PO BID 08/22/18 Benazepril Hcl* (Benazepril Hcl*) 5 Mg Tablet, 5 MG PO BID, #60 TAB HOLD FOR SBP <110. 08/22/18 Anastrozole* (Arimidex*) 1 Mg Tablet, 1 MG PO DAILY, #30 TAB 08/22/18 Acetaminophen* (Acetaminophen*) 500 MG Extra Strength Tablet, 500 MG PO Q6H PRN for PAIN AND OR ELEVATED TEMP, TAB 08/22/18 Medications Current Medications Acetaminophen (Tylenol Tab) 500 mg Q6H PRN PO MILD PAIN(1-3)OR ELEVATED TEMP Last administered on 09/20/18 22:55; Admin Dose 500 MG; Start 09/09/18 at 22:30 Anastrozole (Arimidex) 1 mg DAILY PO Last administered on 09/28/18 09:04; Ad min Dose 1 MG; Start 09/10/18 at 09:00 Carvedilol (Coreg) 3.125 mg BID PO Last administered on 09/27/18 21:46; Admin Dose 3.125 MG; Start 09/09/18 at 22:30 Docusate Sodium (Colace) 200 mg BID PO Last administered on 09/28/18 08:58; Admin Dose 200 MG; Start 09/09/18 at 22:30 Escitalopram Oxalate (Lexapro) 10 mg DAILY PO Last administered on 09/28/18 09:01; Admin Dose 10 MG; Start 09/10/18 at 09:00 Ondansetron HCl (Zofran Tab) 4 mg Q6H PRN PO NAUSEA AND/OR VOMITING Last administered on 09/20/18 08:37; Admin Dose 4 MG; Start 09/09/18 at 22:30 Pantoprazole (Protonix Tab) 40 mg AC BREAKFAST PO Last administered on 09/28/18 06:20; Admin Dose 40 MG; Start 09/10/18 at 07:00 Polyethylene Glycol (Miralax) 17 gm BID PO Last administered on 09/28/18 09:03; Admin Dose 17 GM; Start 09/09/18 at 22:30 Spironolactone (Aldactone) 50 mg DAILY PO Last administered on 09/28/18 08:55; Admin Dose 50 MG; Start 09/13/18 at 18:00 Potassium Chloride (Klor-Con 20) 20 meq BID PO Last administered on 09/28/18 08:57; Admin Dose 20 MEQ; Start 09/15/18 at 21:00 Albuterol/ Ipratropium (Duoneb) 3 ml Q8H RESP THERAPY PRN HHN SHORTNESS OF BREATH Last administered on 09/15/18 16:09; Admin Dose 3 ML; Start 09/15/18 at 14:30 Ondansetron HCl (Zofran Inj) 4 mg Q6H PRN IV NAUSEA AND/OR VOMITING Last adm inistered on 09/22/18 05:09; Admin Dose 4 MG; Start 09/15/18 at 14:30 Oxycodone HCl (Oxycontin) 20 mg Q12 PO Last administered on 09/28/18 08:58; Admin Dose 20 MG; Start 09/15/18 at 21:00 Olopatadine HCl (Patanol 0.1% Oph) 1 drop BID BOTH EYES Last administered on 09/28/18 09:03; Admin Dose 1 DROP; Start 09/16/18 at 21:00 Loratadine (Claritin) 10 mg DAILY PO Last administered on 09/28/18 09:01; Admin Dose 10 MG; Start 09/17/18 at 09:00 Furosemide (Lasix) 40 mg BID DIURETICS IV Last administered on 09/28/18 06:20; Admin Dose 40 MG; Start 09/23/18 at 18:00 Acetaminophen/ Hydrocodone Bitart ([place] (5/325)) 1 tab Q8 PRN PO PAIN LEVEL 7- 10 Last administered on 09/28/18 06:20; Admin Dose 1 TAB; Start 09/24/18 at 08:00 Lidocaine (Lidoderm) 2 patch DAILY TD Last administered on 09/28/18 08:59; Admin Dose 2 PATCH; Start 09/26/18 at 17:30 Sodium Chloride (Nacl) 2 gm BID WITH MEALS PO ; Start 09/28/18 at 17:55 Allergies: Coded Allergies: No Known Allergy (Unverified , 09/09/18) Past Surgical History Past Surgical Hx: no surgical history Social History Alcohol Use: none Smoking Status: Never smoker Drug Use: none Exam/Review of Systems Vital Signs Vitals Vital Signs Date Temp Pulse Resp B/P (MAP) Pulse Ox O2 O2 Flow FiO2 Time Delivery Rate 09/28/18 98.7 94 18 91/67 (75) 94 15:45 09/27/18 Nasal 2.0 21:15 Cannula Intake and Output 09/27/18 09/27/18 09/28/18 1414:59 22:59 06:59 IntakeIntake Total 920 ml 700 ml OutputOutput Total 250 ml 350 ml BalanceBalance 670 ml 350 ml Exam Constitutional: alert Head: normocephalic, atraumatic Respiratory: clear to auscultation Cardiovascular: regular rate and rhythm (no m/r/g) Gastrointestinal: soft, nl liver, spleen Extremities: normal pulses Labs Result Diagram: 09/25/18 0854 09/27/18 0455 Results 24hrs Laboratory Tests Test 09/28/18 04:55 09/28/18 11:30 Uric Acid 7.0 Urine Osmolality 619 Urine Random Creatinine 94.40 Urine Random Sodium < 13 L Urine Total Protein < 5.0 Medications Medications Current Medications Acetaminophen (Tylenol Tab) 500 mg Q6H PRN PO MILD PAIN(1-3)OR ELEVATED TEMP Last administered on 09/20/18 22:55; Admin Dose 500 MG; Start 09/09/18 at 22:30 Anastrozole (Arimidex) 1 mg DAILY PO Last administered on 09/28/18 09:04; Admin Dose 1 MG; Start 09/10/18 at 09:00 Carvedilol (Coreg) 3.125 mg BID PO Last administered on 09/27/18 21:46; Admin Dose 3.125 MG; Start 09/09/18 at 22:30 Docusate Sodium (Colace) 200 mg BID PO Last administered on 09/28/18 08:58; Admin Dose 200 MG; Start 09/09/18 at 22:30 Escitalopram Oxalate (Lexapro) 10 mg DAILY PO Last administered on 09/28/18 09:01; Admin Dose 10 MG; Start 09/10/18 at 09:00 Ondansetron HCl (Zofran Tab) 4 mg Q6H PRN PO NAUSEA AND/OR VOMITING Last administered on 09/20/18 08:37; Admin Dose 4 MG; Start 09/09/18 at 22:30 Pantoprazole (Protonix Tab) 40 mg AC BREAKFAST PO Last administered on 09/28/18 06:20; Admin Dose 40 MG; Start 09/10/18 at 07:00 Polyethylene Glycol (Miralax) 17 gm BID PO Last administered on 09/28/18 09:03; Admin Dose 17 GM; Start 09/09/18 at 22:30 Spironolactone (Aldactone) 50 mg DAILY PO Last administered on 09/28/18 08:55; Admin Dose 50 MG; Start 09/13/18 at 18:00 Potassium Chloride (Klor-Con 20) 20 meq BID PO Last administered on 09/28/18 08:57; Admin Dose 20 MEQ; Start 09/15/18 at 21:00 Albuterol/ Ipratropium (Duoneb) 3 ml Q8H RESP THERAPY PRN HHN SHORTNESS OF BREATH Last administered on 09/15/18 16:09; Admin Dose 3 ML; Start 09/15/18 at 14:30 Ondansetron HCl (Zofran Inj) 4 mg Q6H PRN IV NAUSEA AND/OR VOMITING Last administered on 09/22/18 05:09; Admin Dose 4 MG; Start 09/15/18 at 14:30 Oxycodone HCl (Oxycontin) 20 mg Q12 PO Last administered on 09/28/18 08:58; A dmin Dose 20 MG; Start 09/15/18 at 21:00 Olopatadine HCl (Patanol 0.1% Oph) 1 drop BID BOTH EYES Last administered on 09/28/18 09:03; Admin Dose 1 DROP; Start 09/16/18 at 21:00 Loratadine (Claritin) 10 mg DAILY PO Last administered on 09/28/18 09:01; Admin Dose 10 MG; Start 09/17/18 at 09:00 Furosemide (Lasix) 40 mg BID DIURETICS IV Last administered on 09/28/18 06:20; Admin Dose 40 MG; Start 09/23/18 at 18:00 Acetaminophen/ Hydrocodone Bitart ([place] (5/325)) 1 tab Q8 PRN PO PAIN LEVEL 7-10 Last administered on 09/28/18 06:20; Admin Dose 1 TAB; Start 09/24/18 at 08:00 Lidocaine (Lidoderm) 2 patch DAILY TD Last administered on 09/28/18 08:59; Admin Dose 2 PATCH; Start 09/26/18 at 17:30 Sodium Chloride (Nacl) 2 gm BID WITH MEALS PO ; Start 09/28/18 at 17:55 KAREL BECKER M.D. Sep 28, 2018 16:45
[2018-09-28] MEDS: ONDANSETRON 4 MG INJ IV PRN (18:43)
[2018-09-28 19:20] VITALS: BP 119/65; PULSE 108; RESP 20
--- NOTE | 2018-09-28 21:10 | CONS ---
Assessment/Plan Assessment/Plan Hospital Course (Demo Recall) METASTATIC BREAST CANCER WITH PRIMARY ADENOCARCINOMA IN the left breast. MULTIPLE BONY METS, PULMONARY METS, LIVER METS CHEMO ON HOLD PT HAS A VERY GOOD RESPONSE TO CHEMO AND AI CONT AI FOR NOW CT ABD FOR RESTAGING 08.27.18- noted , stable CT CHEST- STABLE/IMPROVING 1. Moderate bilateral pleural effusions with adjacent lung base consolidation/atelectasis. 2. Moderate pericardial effusion. 3. Decreased size of previously prominent mediastinal lymph nodes. Decreased size of sub centimeter axillary lymph nodes. 4. Stable nonspecific pulmonary nodules as described above. 5. Stable soft tissue nodule of the anterior left chest wall/breast. 6. Redemonstrated diffuse sclerotic metastatic osseous lesions with stable compression deformities of the thoracic spine. 7. Nodular contour of the liver with multiple hypoattenuating masses, grossly similar to prior exam. CYTOLOGY-NEG CARD - TO MONITOR FOR PERICARDIAL TAMPONADE, FOR NOW NO NEED TO DO PERICARDIOCENTESIS R HIP PAIN MRI R HIP- nondisplaced pathological fracture of the right femoral head merging with the known metastatic lesion. Interval development of synovitis and a large joint effusion as well as psoas bursitis. CT PELVIS- Subacute to chronic pathologic subcapital fracture of the right femoral neck. ORTHO EVAL PAIN CONTROL Leucopenia- post chemo NEUPOGEN- DC monitor closely post Neutropenia with occasional fever and chills. Anemia chronic disease SOB PLEURAL EFFUSIONS post thoracentesis cytology -NEG ON 09.18.18 Fluid overload diuretic cardiology F-UP Congestive heart failure exacerbation, diastolic by most recent echo, acute on chronic.-neg trop x 3. Echo this admit EF 60/small pericardia effusion Hypotension, currently borderline-overall improved Anasarca. Severe pain in the interscapular and lumbar sacral area most probably metastatic lesion possible femoral fracture. pathologic fracture of T9 with 60% of loss of height. Obesity. Weight loss 60 pounds during the last 2 years PMS. Myopia. Anxiety disorder. Claustrophobia. Posttraumatic stress disorder. Pain in the left forearm with a history of fracture of ulna and radius. Tachycardia Hypoxemia at night marginal improved after 2 L of nasal cannula oxygen. Deconditioning Pain syndrome. Today the most painful zone is in the right hip area. X-ray did not show any fractures. Hyponatremia- resolved Hypoalbuminemia Right sided cp after catheter insertion and correction less discomfort. Decreased edema both lower extremities with hypotension-improving Swelling of the left forearm-persist. Consultation Date/Type/Reason Admit Date/Time Sep 09, 2018 at 14:53 Initial Consult Date 09/09/18 Type of Consult [facility] Requesting Provider: RUSS JEROME MD Date/Time of Note DATE: 09/28/18 TIME: 21:08 24 HR Interval Summary Free Text/Dictation all noted d/w pt and rn Exam/Review of Systems Exam Vitals Vital Signs Date Temp Pulse Resp B/P (MAP) Pulse Ox O2 O2 Flow FiO2 Time Delivery Rate 09/28/18 98.6 108 20 119/65 93 Room Air 19:20 (83) 09/27/18 2.0 21:15 Intake and Output 09/27/18 09/27/18 09/28/18 1515:00 23:00 07:00 IntakeIntake Total 920 ml 700 ml OutputOutput Total 250 ml 350 ml BalanceBalance 670 ml 350 ml Exam Constitutional: alert, oriented, well developed, distress, frail Psych: anxiety, depression; No no complaints, No nl mood/affect, No confusion, No suicidal, No other Head: normocephalic, atraumatic Eyes: EOMI, nl lids; No nl conjunctiva, No nl sclera, No PERRL, No icteric, No fundi, disc, No other ENMT: No nl external ears & nose, No nl lips & teeth, No nl nasal mucosa & septum, No mucosa pink and moist, No intubated, No tympanic membranes, No other Neck: supple, jvd, bruits; No non-tender, No masses, No thyromegaly, No nuchal rigidity, No other Respiratory: congested cough, diminished breath sounds (Left more prominent than the right side.); No clear to auscultation, No normal air movement, No crackles/rales, No intercostal retraction, No labored breathing, No respirations, No tactile fremitus, No wheezing, No other Cardiovascular: No regular rate and rhythm, No nl pulses, No bruits, No diastolic murmur, No edema, No gallop, No irregular rhythm, No jugular venous distention (JVD), No murmurs/extra sounds, No rub, No systolic murmur, No S3, No S4, No other Gastrointestinal: soft, nl liver, spleen, distended Extremities: edema (Left upper extremity more prominent in the right.), LE BL Results Result Diagram: 09/25/18 0854 09/27/18 0455 Results 24hrs Laboratory Tests Test 09/28/18 04:55 09/28/18 11:30 Uric Acid 7.0 Urine Osmolality 619 Urine Random Creatinine 94.40 Urine Random Sodium < 13 L Urine Total Protein < 5.0 Medications Medication Current Medications Acetaminophen (Tylenol Tab) 500 mg Q6H PRN PO MILD PAIN(1-3)OR ELEVATED TEMP Last administered on 09/20/18 22:55; Admin Dose 500 MG; Start 09/09/18 at 22:30 Anastrozole (Arimidex) 1 mg DAILY PO Last administered on 09/28/18 09:04; Admin Dose 1 MG; Start 09/10/18 at 09:00 Carvedilol (Coreg) 3.125 mg BID PO Last administered on 09/27/18 21:46; Admin Dose 3.125 MG; Start 09/09/18 at 22:30 Docusate Sodium (Colace) 200 mg BID PO Last administered on 09/28/18 08:58; Admin Dose 200 MG; Start 09/09/18 at 22:30 Escitalopram Oxalate (Lexapro) 10 mg DAILY PO Last administered on 09/28/18 09:01; Admin Dose 10 MG; Start 09/10/18 at 09:00 Ondansetron HCl (Zofran Tab) 4 mg Q6H PRN PO NAUSEA AND/OR VOMITING Last administered on 09/20/18 08:37; Admin Dose 4 MG; Start 09/09/18 at 22:30 Pantoprazole (Protonix Tab) 40 mg AC BREAKFAST PO Last administered on 09/28/18 06:20; Admin Dose 40 MG; Start 09/10/18 at 07:00 Polyethylene Glycol (Miralax) 17 gm BID PO Last administered on 09/28/18 09:03; Admin Dose 17 GM; Start 09/09/18 at 22:30 Spironolactone (Aldactone) 50 mg DAILY PO Last administered on 09/28/18 08:55; Admin Dose 50 MG; Start 09/13/18 at 18:00 Potassium Chloride (Klor-Con 20) 20 meq BID PO Last administered on 09/28/18 08:57; Admin Dose 20 MEQ; Start 09/15/18 at 21:00 Albuterol/ Ipratropium (Duoneb) 3 ml Q8H RESP THERAPY PRN HHN SHORTNESS OF ALKA TH Last administered on 09/15/18 16:09; Admin Dose 3 ML; Start 09/15/18 at 14:30 Ondansetron HCl (Zofran Inj) 4 mg Q6H PRN IV NAUSEA AND/OR VOMITING Last administered on 09/28/18 18:43; Admin Dose 4 MG; Start 09/15/18 at 14:30 Oxycodone HCl (Oxycontin) 20 mg Q12 PO Last administered on 09/28/18 08:58; Admin Dose 20 MG; Start 09/15/18 at 21:00 Olopatadine HCl (Patanol 0.1% Oph) 1 drop BID BOTH EYES Last administered on 09/28/18 09:03; Admin Dose 1 DROP; Start 09/16/18 at 21:00 Loratadine (Claritin) 10 mg DAILY PO Last administered on 09/28/18 09:01; Admin Dose 10 MG; Start 09/17/18 at 09:00 Furosemide (Lasix) 40 mg BID DIURETICS IV Last administered on 09/28/18 06:20; Admin Dose 40 MG; Start 09/23/18 at 18:00 Acetaminophen/ Hydrocodone Bitart ([place] (5/325)) 1 tab Q8 PRN PO PAIN LEVEL 7- 10 Last administered on 09/28/18 06:20; Admin Dose 1 TAB; Start 09/24/18 at 08:00 Lidocaine (Lidoderm) 2 patch DAILY TD Last administered on 09/28/18 08:59; Admin Dose 2 PATCH; Start 09/26/18 at 17:30 Sodium Chloride (Nacl) 2 gm BID WITH MEALS PO ; Start 09/28/18 at 17:55 DES DUNAWAY MD Sep 28, 2018 21:10
--- NOTE | 2018-09-28 22:10 | CONS ---
DATE OF ADMISSION: 09/09/2018 DATE OF CONSULTATION: 09/28/2018 HISTORY OF PRESENT ILLNESS: The patient is a 58-year-old female with known history of adenocarcinoma of the left breast with multiple metastasis including pulmonary, hepatic and skeletal metastasis who was admitted on 09/09/2018 when she came to the emergency room complaining of shortness of breath. Initial evaluation revealed the presence of pleural effusion and she was treated with the pulmonary a spiration of the pleural effusion. She was also complaining of pain involving the right hip and right lower extremity and subsequent pina gnostic studies including plain x-rays, CT scan and MRI scan of the right hip revealed a presence of pathologic fracture involving the subcapital portion of the right hip. PHYSICAL EXAMINATION: My examination revealed rather stocky and mildly obese 58-year-old female who does not seem to be in acute pain. On inquiring, she claims that she was having some pain involving her right hip at least for the last 1 month. Gentle range of motion of the right hip was provoking m ild pain. There was a slight shortening without any major abnormal rotation of the right lower extre mity. There were no signs of neurovascular compromise involving the right lower extremity. DIAGNOSTIC STUDIES: X-rays of the right hip were showing some area of lucency with a little bit unus ual varus angulation at the neck. CT scan and MRI scan of the right hip were showing a pathologic fr acture in the subcapital area along with the metastatic lesions involving the femoral head and neck. DIAGNOSTIC IMPRESSION: Pathologic fracture of the subcapital area of the right femur along with the metastatic lesion spread through the femoral head and neck of the right hip. RECOMMENDATIONS FOR MANAGEMENT: Hemiarthroplasty of the right hip as soon as she can be medically cl eared for surgery. Dictated By: ALMA AKINS/KEANU Conf#: [id number] DID#: [id number]
[2018-09-29 02:55] VITALS: BP 104/63; PULSE 101; RESP 20
[2018-09-29] MEDS: FUROSEMIDE 40 MG INJ IV SCH (05:45)
[2018-09-29] MEDS: PANTOPRAZOLE (EC) 40 MG TAB PO SCH (05:52)
[2018-09-29 08:31] VITALS: BP 107/61; PULSE 95; RESP 18
--- NOTE | 2018-09-29 09:04 | PN ---
DATE: 09/29/2018 SUBJECTIVE: The patient is stable, no events overnight. The patient's pain is controlled. OBJECTIVE: VITAL SIGNS: Blood pressure is 107/61, pulse 95, respirations 18, temperature 98.1. HEENT: Head is normocephalic. NECK: Supple. HEART: Regular rate. LUNGS: Show diminished breath sounds at the base. ABDOMEN: Soft, nontender to palpation without rebound or guarding. EXTREMITIES: Negative for clubbing, cyanosis, no edema. DERMATOLOGIC: No rashes. MUSCULOSKELETAL: The patient has tenderness to palpation in right hip. NEUROLOGIC: No change in exam. MEDICATIONS: Reviewed. LABORATORY DATA: Reviewed. The patient has sodium of 138. Repeat urine study shows FENa less than 1%. ASSESSMENT AND PLAN: 1. Acute hypernatremia, etiology is possibly multifactorial secondary to congestive heart failure. The patient's FENa is less than 1%, which can be seen in prerenal hypovolemia or decompensated heart failure. The patient is being treated with diuretic therapy with improvement in sodium level. The p atient's edema has also been improving. At this point, continue current treatment plan. Continue to limit free water intake. Continue intermittent diuretic therapy as needed. 2. Hypokalemia. Continue to monitor and replete. 3. Alkalosis. Continue to monitor. Consider Diamox if alkalosis should worsen. 4. Acute hypoxemic respiratory failure secondary to congestive heart failure. Continue to monitor. 5. Left breast cancer with metastasis. Continue medical management. Follow up with oncology. 6. Right hip fracture. The patient is seen by orthopedist pending possible surgical correction. 7. Anemia. Continue to monitor hemoglobin and hematocrit levels. 8. Volume overload. Etiology may be secondary to congestive heart failure. The patient has been se en by cardiology. Remains on diuretic therapy. We will adjust. 9. Thrombocytopenia. Continue to monitor. 10. Chronic pain syndrome. Continue current pain regimen. Dictated By: ANDRÉS TATUM DO NR/NTS Conf#: [id number] DID#: [id number] CC: RUSS JEROME MD;*EndCC*
[2018-09-29] MEDS: POLYETHYLENE GLYCOL 17 GM PACKET PO SCH ×2 (09:32→21:00)
[2018-09-29] MEDS: OLOPATADINE 0.1% 5 ML OPH BOTH EYES SCH ×2 (09:33→22:01)
[2018-09-29] MEDS: SPIRONOLACTONE 50 MG TAB PO SCH (09:33)
[2018-09-29] MEDS: LIDOCAINE 5% PATCH TD SCH (09:33)
[2018-09-29] MEDS: ANASTROZOLE 1 MG TAB PO SCH (09:34)
[2018-09-29] MEDS: SODIUM CHLORIDE 1 GM TAB PO SCH (09:34)
[2018-09-29] MEDS: ESCITALOPRAM 10 MG TAB PO SCH (09:34)
[2018-09-29] MEDS: LORATADINE 10 MG TAB PO SCH (09:35)
[2018-09-29] MEDS: POTASSIUM CHLORIDE (SR) 20 MEQ TAB PO SCH ×2 (09:35→22:02)
[2018-09-29] MEDS: DOCUSATE SODIUM 100 MG CAP PO SCH ×2 (09:35→22:01)
[2018-09-29] MEDS: oxyCODONE (CR) 10 MG TAB [oxyCONTIN] PO SCH ×2 (09:39→22:02)
[2018-09-29] MEDS: FUROSEMIDE 20 MG TAB PO SCH (09:40)
[2018-09-29 14:00] VITALS: BP 117/59; PULSE 96; RESP 18
--- NOTE | 2018-09-29 14:29 | CONS ---
Assessment/Plan Assessment/Plan Assessment/Plan (Daily) Subacute to chronic pathologic subcapital fracture of the right femoral neck. Congestive heart failure exacerbation, Diastolic Anasarca. Metastatic breast carcinoma. Leukopenia. Thrombocytopenia Pericardial effusion Continue Coreg Stop Lasix Continue Aldactone Continue Protonix Cleared for surgery with low risk Consultation Date/Type/Reason Admit Date/Time Sep 09, 2018 at 14:53 Initial Consult Date 09/09/18 Type of Consult Cardiology Requesting Provider: RUSS JEROME MD Date/Time of Note DATE: 09/29/18 TIME: 14:25 Exam/Review of Systems Vital Signs Vitals Vital Signs Date Temp Pulse Resp B/P (MAP) Pulse Ox O2 O2 Flow FiO2 Time Delivery Rate 09/29/18 98.1 95 18 107/61 91 08:31 (76) 09/29/18 Room Air 02:55 09/27/18 2.0 21:15 Intake and Output 09/28/18 09/28/18 09/29/18 1414:59 22:59 06:59 IntakeIntake Total 400 ml 400 ml 400 ml BalanceBalance 400 ml 400 ml 400 ml Exam Exam Constitutional: alert Head: normocephalic, atraumatic Respiratory: clear to auscultation Cardiovascular: regular rate and rhythm (no m/r/g) Gastrointestinal: soft, nl liver, spleen Extremities: normal pulses Labs Result Diagram: 09/29/183 09/29/183 Results 24hrs Laboratory Tests Test 09/29/18 04:43 White Blood Count 3.5 #L Red Blood Count 3.23 L Hemoglobin 10.7 L Hematocrit 33.2 L Mean Corpuscular Volume 102.8 H Mean Corpuscular Hemoglobin 33.1 H Mean Corpuscular Hemoglobin Concent 32.2 Red Cell Distribution Width 17.0 H Platelet Count 192 Mean Platelet Volume 9.4 Immature Granulocytes % 0.000 L Neutrophils % 39.1 Lymphocytes % 41.2 Monocytes % 17.2 H Eosinophils % 0.8 Basophils % 1.7 Nucleated Red Blood Cells % 0.0 Immature Granulocytes # 0.000 Neutrophils # 1.4 L Lymphocytes # 1.5 Monocytes # 0.6 Eosinophils # 0.0 Basophils # 0.1 Nucleated Red Blood Cells # 0.0 Sodium Level 138 Potassium Level 4.6 Chloride Level 103 Carbon Dioxide Level 31 Anion Gap 4 L Blood Urea Nitrogen 28 H Creatinine 0.80 Est Glomerular Filtrat Rate mL/min > 60 Glucose Level 106 Calcium Level 8.6 Phosphorus Level 6.0 H Magnesium Level 2.2 Total Bilirubin 0.5 Direct Bilirubin 0.00 Indirect Bilirubin 0.5 Aspartate Amino Transf (AST/SGOT) 43 Alanine Aminotransferase (ALT/SGPT) 21 Alkaline Phosphatase 93 Total Protein 5.6 L Albumin 2.8 L Globulin 2.80 Albumin/Globulin Ratio 1.00 Medications Medications Current Medications Acetaminophen (Tylenol Tab) 500 mg Q6H PRN PO MILD PAIN(1-3)OR ELEVATED TEMP Last administered on 09/20/18 22:55; Admin Dose 500 MG; Start 09/09/18 at 22:30 Anastrozole (Arimidex) 1 mg DAILY PO Last administered on 09/29/18 09:34; Admin Dose 1 MG; Start 09/10/18 at 09:00 Carvedilol (Coreg) 3.125 mg BID PO Last administered on 09/29/18 09:36; Admin Dose 3.125 MG; Start 09/09/18 at 22:30 Docusate Sodium (Colace) 200 mg BID PO Last administered on 09/29/18 09:35; Admin Dose 200 MG; Start 09/09/18 at 22:30 Escitalopram Oxalate (Lexapro) 10 mg DAILY PO Last administered on 09/29/18 09:34; Admin Dose 10 MG; Start 09/10/18 at 09:00 Ondansetron HCl (Zofran Tab) 4 mg Q6H PRN PO NAUSEA AND/OR VOMITING Last administered on 09/20/18 08:37; Admin Dose 4 MG; Start 09/09/18 at 22:30 Pantoprazole (Protonix Tab) 40 mg AC BREAKFAST PO Last administered on 09/29/18 05:52; Admin Dose 40 MG; Start 09/10/18 at 07:00 Polyethylene Glycol (Miralax) 17 gm BID PO Last administered on 09/29/18 09:32; Admin Dose 17 GM; Start 09/09/18 at 22:30 Spironolactone (Aldactone) 50 mg DAILY PO Last administered on 09/29/18 09:33; Admin Dose 50 MG; Start 09/13/18 at 18:00 Potassium Chloride (Klor-Con 20) 20 meq BID PO Last administered on 09/29/18 09:35; Admin Dose 20 MEQ; Start 09/15/18 at 21:00 Albuterol/ Ipratropium (Duoneb) 3 ml Q8H RESP THERAPY PRN HHN SHORTNESS OF BREATH Last administered on 09/15/18 16:09; Admin Dose 3 ML; Start 09/15/18 at 14:30 Ondansetron HCl (Zofran Inj) 4 mg Q6H PRN IV NAUSEA AND/OR VOMITING Last administered on 09/28/18 18:43; Admin Dose 4 MG; Start 09/15/18 at 14:30 Oxycodone HCl (Oxycontin) 20 mg Q12 PO Last administered on 09/29/18 09:39; Admin Dose 20 MG; Start 09/15/18 at 21:00 Olopatadine HCl (Patanol 0.1% Oph) 1 drop BID BOTH EYES Last administered on 09:33; Admin Dose 1 DROP; Start 09/16/18 at 21:00 Loratadine (Claritin) 10 mg DAILY PO Last administered on 09/29/18 09:35; Admin Dose 10 MG; Start 09/17/18 at 09:00 Acetaminophen/ Hydrocodone Bitart ([place] (5/325)) 1 tab Q8 PRN PO PAIN LEVEL 7- 10 Last administered on 09/28/18 22:14; Admin Dose 1 TAB; Start 09/24/18 at 08:00 Lidocaine (Lidoderm) 2 patch DAILY TD Last administered on 09/29/18 09:33; Admin Dose 2 PATCH; Start 09/26/18 at 17:30 Sodium Chloride (Nacl) 2 gm BID WITH MEALS PO Last administered on 09/29/18 09:34; Admin Dose 2 GM; Start 09/28/18 at 17:55 Furosemide (Lasix) 20 mg DAILY PO Last administered on 09/29/18 09:40; Admin Dose 20 MG; Start 09/29/18 at 09:00 KAREL BECKER M.D. Sep 29, 2018 14:29
[2018-09-29] MEDS: HYDROCODONE/APAP (5/325) TAB PO PRN ×2 (15:23→23:06)
[2018-09-29 20:33] VITALS: BP 116/77; PULSE 100
--- NOTE | 2018-09-29 20:45 | PN ---
Date/Time of Note Date/Time of Note DATE: 09/29/18 TIME: 20:23 Assessment/Plan VTE Prophylaxis Risk score (from Nsg)>0 risk: 7 SCD applied (from Ns): No SCD contraindicated: low risk/ambulating Pharmacological prophylaxis: NA/contraindicated Pharm contraindication: bleeding, blood coag disorder, thrombocytopenia, other (preparing to surgery.) Lines/Catheters [facility] Peripheral IV Central line still needed: No Urinary Cath still in place: No Reason Cath still needed: urinary retention Assessment/Plan Hospital Course S/p recurrent thoracentesis with re-occultation of fluid. By calculating patient's preoperative risk the patient is in mild to moderate cardiac risk category. Due to of multiple vertebral fractures handling of the patient's body on the operative table must be extremely careful. Extra dose of Lasix will be given now to diurese the patient which looks slightly more congested comparing with the yesterday's white having anasarca. No contraindications to surgery. Assessment/Plan 1. PRIMARY ADENOCARCINOMA of the left breast. MULTIPLE BONY METS, PULMONARY METS;LIVER METS CHEMO ON HOLD; PT HAS A VERY GOOD RESPONSE TO CHEMO AND AI 2. Severe pain in the interscapular and lumbar sacral area most probably metastatic lesion possible femoral fracture. pathologic fracture of T9 with 60% of loss of height. Neurosurgical f/u. 3. Obesity. 4. Weight loss 60 pounds during the last 2 years by diet 5. PMS. 6. Myopia. 7. Anemia chronic disease with a drop of her hematocrit to 27 and regaining to 30 without any measures. Latest results 28. Protonix was added. Will recheck tomorrow;Leukopenia.Thrombocytopenia; 8. Anxiety disorder. Claustrophobia. Increase Ativan to 1 mg every 8 as needed at Lexapro 10 mg daily. 9. Posttraumatic stress disorder. 10. Pain in the left forearm with a history of fracture of ulna and radius. 11. Tachycardia 12. Hypoxemia at night marginal improved after 2 L of nasal cannula oxygen. 13. Deconditioning 14. 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 MRI: 09/28/18:diffuse osseous metastatic disease with multiple pathologic compression fractures at least involving the T4, T5, T7, T9 and T11 levels. There is likely mild cortical breakthrough at several levels resulting in mild central canal narrowing. No gross evidence of cord compression is seen.. 15. Pain syndrome. Today the most painful zone is in the right hip area. 16. Hyponatremia-corrected; hypokalemia after massive diuresis- corrected.Recheck and sodium chloride daily with the dose to 4 mg today 17. Leucopenia-improved. 18. Neutropenia with occasional fever and chills. Last chemotherapy 5 days ago. 19. Hypoalbuminemia. 20.Right sided cp after catheter insertion and correction less discomfort. 21. Decreased edema both lower extremities with [id number] with Pleural and Pericardial effusion. 22.Swelling of the left forearm-persist. Now no erythema. 23.bilateral pleural effusions ; plan to perform tap tomorrow morning preferably from the right side. 24. Systolic over diastolic congestive heart failure with a right more than left lower extremity swelling with no DVT in latest venous Doppler. 25. Cellulitis of the left forearm with increased edema anteriorly. 26. Pathologic fracture of the right hip; planned right hip arthroplasty. Result Diagram: 09/29/18 0443 09/29/18 0443 Results 24hrs Laboratory Tests Test 09/29/18 04:43 09/29/18 18:34 White Blood Count 3.5 #L Red Blood Count 3.23 L Hemoglobin 10.7 L Hematocrit 33.2 L Mean Corpuscular Volume 102.8 H Mean Corpuscular Hemoglobin 33.1 H Mean Corpuscular Hemoglobin Concent 32.2 Red Cell Distribution Width 17.0 H Platelet Count 192 Mean Platelet Volume 9.4 Immature Granulocytes % 0.000 L Neutrophils % 39.1 Lymphocytes % 41.2 Monocytes % 17.2 H Eosinophils % 0.8 Basophils % 1.7 Nucleated Red Blood Cells % 0.0 Immature Granulocytes # 0.000 Neutrophils # 1.4 L Lymphocytes # 1.5 Monocytes # 0.6 Eosinophils # 0.0 Basophils # 0.1 Nucleated Red Blood Cells # 0.0 Sodium Level 138 Potassium Level 4.6 Chloride Level 103 Carbon Dioxide Level 31 Anion Gap 4 L Blood Urea Nitrogen 28 H Creatinine 0.80 Est Glomerular Filtrat Rate mL/min > 60 Glucose Level 106 Calcium Level 8.6 Phosphorus Level 6.0 H Magnesium Level 2.2 Total Bilirubin 0.5 Direct Bilirubin 0.00 Indirect Bilirubin 0.5 Aspartate Amino Transf (AST/SGOT) 43 Alanine Aminotransferase (ALT/SGPT) 21 Alkaline Phosphatase 93 Total Protein 5.6 L Albumin 2.8 L Globulin 2.80 Albumin/Globulin Ratio 1.00 Prothrombin Time 12.6 Prothrombin Time Ratio 1.0 INR International Normalized Ratio 0.93 Activated Partial Thromboplast Time 33.2 CC: ; Subjective 24 Hr Interval Summary Free Text/Dictation Right hip pain interscapular pain weakness difficulty to get up mild increase of edema of both lower extremities right more than the left and left upper extremity with erythema. Discussed with the patient the plan of performing a right hip arthroplasty to be performed by Dr. Shane. She is aware of a fracture and she is aware of consequences of pathology fracture . Constitutional: improved, disoriented, requiring O2, other (If she is not moving the pain in the right hip area and back area is tolerable.); No no complaints, No chills, No diaphoresis, No febrile, No poor po, No requiring IVF Eyes: No no complaints, No pain, No discharge, No redness, No visual change, No other ENT: congestion, dysphagia, sore throat; No no complaints, No bleeding, No pain, No discharge, No other Respiratory: cough, pleuritic pain, shortness of breath; No no complaints, No pain, No sputum, No wheezing, No other Cardiovascular: chest pain, edema, lightheadedness, palpitations; No no complaints, No orthopenea, No paroxysmal nocturnal dyspnea, No other Gastrointestinal: constipation, decreased appetite, passing stool; No no complaints, No pain, No blood, No diarrhea, No flatus, No nausea, No vomiting, No other Genitourinary: dysuria; No no complaints, No bleeding, No discharge, No flank pain, No hematuria, No other Musculoskeletal: back pain, bone/joint pain (Mainly the pain is located in the right hip area and pressure from that site is exacerbating the pain.), neck pain, other; No no complaints, No restricted range of motion, No swelling Skin: erythema (Left forearm anteriorly is erythematous which was not present yesterday patient was advised to keep the left upper extremity above the heart level which somehow she is not to.Was placed under the left upper extremity.); No no complaints, No bruising, No laceration, No pruritis, No rash, No skin lesions, No other Neurologic: headache; No no complaints, No confusion, No dizziness, No focal-weakness, No syncope, No seizure, No other Endocrine: temp intolerance; No no complaints, No polyuria, No polydypsia, No dry skin, No other Lymphatic: No no complaints, No adenopathy, No tender nodes, No lymphadema, No other Psychological: anxiety; No no complaints, No nl mood/affect, No confusion, No depression, No suicidal, No other Immunologic: No no complaints, No immunodeficiency, No pruritis, No rhinitis, No urticaria, No other Exam/Review of Systems Exam Vitals Vital Signs Date Temp Pulse Resp B/P (MAP) Pulse Ox O2 O2 Flow FiO2 Time Delivery Rate 09/29/18 98.7 96 18 117/59 93 14:00 (78) 09/29/18 Room Air 02:55 09/27/18 2.0 21:15 Intake and Output 09/28/18 09/28/18 09/29/18 1515:00 23:00 07:00 IntakeIntake Total 400 ml 400 ml 400 ml BalanceBalance 400 ml 400 ml 400 ml Constitutional: alert, oriented, well developed, distress, frail; No non-verbal, No obese, No other Psych: anxiety; No no complaints, No nl mood/affect, No confusion, No depression, No suicidal, No other Head: normocephalic, atraumatic; No lacerations, No hematomas, No other Eyes: EOMI, nl lids, PERRL; No nl conjunctiva, No nl sclera, No icteric, No fundi, disc, No other ENMT: nl lips & teeth, nl nasal mucosa & septum; No nl external ears & nose, No mucosa pink and moist, No intubated, No tympanic membranes, No other Neck: non-tender, bruits, masses; No supple, No jvd, No thyromegaly, No nuchal rigidity, No other Respiratory: clear to auscultation, normal air movement, congested cough, diminished breath sounds; No crackles/rales, No intercostal retraction, No labored breathing, No respirations, No tactile fremitus, No wheezing, No other Cardiovascular: regular rate and rhythm, bruits; No nl pulses, No diastolic murmur, No edema, No gallop, No irregular rhythm, No jugular venous distention (JVD), No murmurs/extra sounds, No rub, No systolic murmur, No S3, No S4, No other Gastrointestinal: soft, ascites (on ct.); No nl liver, spleen, No non-tender, No bowel sounds, No distended, No firm, No hepatomegaly, No mass, No rebound or guarding, No splenomegaly, No surgical scars, No tender, No other Genitourinary - Female: nl adnexae, nl external genitalia; No CMT, No CVA tenderness, No uterus, No other Musculoskeletal: joint tenderness; No nl extremities to inspection, No nl gait and stance, No muscle tone, No muscle weakness, No range of motion, No spine non-tender, No swelling, No other Extremities: edema (right more than left side.); No normal pulses, No calf tenderness, No cyanosis, No clubbing, No pitting pedal edema, No palpable cord, No tenderness, No other 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: [employer] 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, nl mental status; No nl speech, No nl strength, No confused, No DTR's symmetric, No focal weakness, No lethargic, No numbness, No reflexes, No unresponsive, No other Skin: nl turgor; No rash or lesions, No diaphoresis, No ecchymosis, No laceration, No pun cture, No other Lymph: No nl lymph nodes, No enlarged, No nontender, No other Results Results 24hrs Laboratory Tests Test 09/29/18 04:43 09/29/18 18:34 White Blood Count 3.5 #L Red Blood Count 3.23 L Hemoglobin 10.7 L Hematocrit 33.2 L Mean Corpuscular Volume 102.8 H Mean Corpuscular Hemoglobin 33.1 H Mean Corpuscular Hemoglobin Concent 32.2 Red Cell Distribution Width 17.0 H Platelet Count 192 Mean Platelet Volume 9.4 Immature Granulocytes % 0.000 L Neutrophils % 39.1 Lymphocytes % 41.2 Monocytes % 17.2 H Eosinophils % 0.8 Basophils % 1.7 Nucleated Red Blood Cells % 0.0 Immature Granulocytes # 0.000 Neutrophils # 1.4 L Lymphocytes # 1.5 Monocytes # 0.6 Eosinophils # 0.0 Basophils # 0.1 Nucleated Red Blood Cells # 0.0 Sodium Level 138 Potassium Level 4.6 Chloride Level 103 Carbon Dioxide Level 31 Anion Gap 4 L Blood Urea Nitrogen 28 H Creatinine 0.80 Est Glomerular Filtrat Rate mL/min > 60 Glucose Level 106 Calcium Level 8.6 Phosphorus Level 6.0 H Magnesium Level 2.2 Total Bilirubin 0.5 Direct Bilirubin 0.00 Indirect Bilirubin 0.5 Aspartate Amino Transf (AST/SGOT) 43 Alanine Aminotransferase (ALT/SGPT) 21 Alkaline Phosphatase 93 Total Protein 5.6 L Albumin 2.8 L Globulin 2.80 Albumin/Globulin Ratio 1.00 Prothrombin Time 12.6 Prothrombin Time Ratio 1.0 INR International Normalized Ratio 0.93 Activated Partial Thromboplast Time 33.2 Medications Medication Current Medications Acetaminophen (Tylenol Tab) 500 mg Q6H PRN PO MILD PAIN(1-3)OR ELEVATED TEMP Last administered on 09/20/18 22:55; Admin Dose 500 MG; Start 09/09/18 at 22:30 Anastrozole (Arimidex) 1 mg DAILY PO Last administered on 09/29/18 09:34; Admin Dose 1 MG; Start 09/10/18 at 09:00 Carvedilol (Coreg) 3.125 mg BID PO Last administered on 09/29/18 09:36; Admin Dose 3.125 MG; Start 09/09/18 at 22:30 Docusate Sodium (Colace) 200 mg BID PO Last administered on 09/29/18 09:35; Admin Dose 200 MG; Start 09/09/18 at 22:30 Escitalopram Oxalate (Lexapro) 10 mg DAILY PO Last administered on 09/29/18 09:34; Admin Dose 10 MG; Start 09/10/18 at 09:00 Ondansetron HCl (Zofran Tab) 4 mg Q6H PRN PO NAUSEA AND/OR VOMITING Last admini stered on 09/20/18 08:37; Admin Dose 4 MG; Start 09/09/18 at 22:30 Pantoprazole (Protonix Tab) 40 mg AC BREAKFAST PO Last administered on 09/29/18 05:52; Admin Dose 40 MG; Start 09/10/18 at 07:00 Polyethylene Glycol (Miralax) 17 gm BID PO Last administered on 09/29/18 09:32; Admin Dose 17 GM; Start 09/09/18 at 22:30 Spironolactone (Aldactone) 50 mg DAILY PO Last administered on 09/29/18 09:33; Admin Dose 50 MG; Start 09/13/18 at 18:00 Potassium Chloride (Klor-Con 20) 20 meq BID PO Last administered on 09/29/18 09:35; Admin Dose 20 MEQ; Start 09/15/18 at 21:00 Albuterol/ Ipratropium (Duoneb) 3 ml Q8H RESP THERAPY PRN HHN SHORTNESS OF BREATH Last administered on 09/15/18 16:09; Admin Dose 3 ML; Start 09/15/18 at 14:30 Ondansetron HCl (Zofran Inj) 4 mg Q6H PRN IV NAUSEA AND/OR VOMITING Last administered on 09/28/18 18:43; Admin Dose 4 MG; Start 09/15/18 at 14:30 Oxycodone HCl (Oxycontin) 20 mg Q12 PO Last administered on 09/29/18 09:39; Admin Dose 20 MG; Start 09/15/18 at 21:00 Olopatadine HCl (Patanol 0.1% Oph) 1 drop BID BOTH EYES Last administered on 09/29/18 09:33; Admin Dose 1 DROP; Start 09/16/18 at 21:00 Loratadine (Claritin) 10 mg DAILY PO Last administered on 09/29/18 09:35; Admin Dose 10 MG; Start 09/17/18 at 09:00 Acetaminophen/ Hydrocodone Bitart ([place] (5/325)) 1 tab Q8 PRN PO PAIN LEVEL 7- 10 Last administered on 09/29/18 15:23; Admin Dose 1 TAB; Start 09/24/18 at 08:00 Lidocaine (Lidoderm) 2 patch DAILY TD Last administered on 09/29/18 09:33; Ad min Dose 2 PATCH; Start 09/26/18 at 17:30 Sodium Chloride (Nacl) 2 gm BID WITH MEALS PO Last administered on 09/29/18 09:34; Admin Dose 2 GM; Start 09/28/18 at 17:55 Furosemide (Lasix) 20 mg DAILY PO Last administered on 09/29/18 09:40; Admin Dose 20 MG; Start 09/29/18 at 09:00 RUSS JEROME MD Sep 29, 2018 20:35
[2018-09-29] MEDS ORDERED: FUROSEMIDE 20 MG INJ IV ONE (21:00)
--- NOTE | 2018-09-29 22:25 | CONS ---
Assessment/Plan Assessment/Plan Hospital Course (Demo Recall) METASTATIC BREAST CANCER WITH PRIMARY ADENOCARCINOMA IN the left breast. MULTIPLE BONY METS, PULMONARY METS, LIVER METS CHEMO ON HOLD PT HAS A VERY GOOD RESPONSE TO CHEMO AND AI CONT AI FOR NOW CT ABD FOR RESTAGING 08.27.18- noted , stable CT CHEST- STABLE/IMPROVING 1. Moderate bilateral pleural effusions with adjacent lung base consolidation/atelectasis. 2. Moderate pericardial effusion. 3. Decreased size of previously prominent mediastinal lymph nodes. Decreased size of sub centimeter axillary lymph nodes. 4. Stable nonspecific pulmonary nodules as described above. 5. Stable soft tissue nodule of the anterior left chest wall/breast. 6. Redemonstrated diffuse sclerotic metastatic osseous lesions with stable compression deformities of the thoracic spine. 7. Nodular contour of the liver with multiple hypoattenuating masses, grossly similar to prior exam. CYTOLOGY-NEG CARD - TO MONITOR FOR PERICARDIAL TAMPONADE, FOR NOW NO NEED TO DO PERICARDIOCENTESIS R HIP PAIN MRI R HIP- nondisplaced pathological fracture of the right femoral head merging with the known metastatic lesion. Interval development of synovitis and a large joint effusion as well as psoas bursitis. CT PELVIS- Subacute to chronic pathologic subcapital fracture of the right femoral neck. ORTHO -Hemiarthroplasty of the right hip as soon as she can be medically cleared for surgery. PT CLEARED FROM MY POINT CONT PAIN CONTROL Leucopenia- post chemo NEUPOGEN- DC monitor closely post Neutropenia with occasional fever and chills. Anemia chronic disease SOB PLEURAL EFFUSIONS post thoracentesis cytology -NEG ON 09.18.18 Fluid overload diuretic cardiology F-UP Congestive heart failure exacerbation, diastolic by most recent echo, acute on chronic.-neg trop x 3. Echo this admit EF 60/small pericardia effusion Hypotension, currently borderline-overall improved Anasarca. Severe pain in the interscapular and lumbar sacral area most probably metastatic lesion possible femoral fracture. pathologic fracture of T9 with 60% of loss of height. Obesity. Weight loss 60 pounds during the last 2 years PMS. Myopia. Anxiety disorder. Claustrophobia. Posttraumatic stress disorder. Pain in the left forearm with a history of fracture of ulna and radius. Tachycardia Hypoxemia at night marginal improved after 2 L of nasal cannula oxygen. Deconditioning Pain syndrome. Today the most painful zone is in the right hip area. X-ray did not show any fractures. Hyponatremia- resolved Hypoalbuminemia Right sided cp after catheter insertion and correction less discomfort. Decreased edema both lower extremities with hypotension-improving Swelling of the left forearm-persist. Consultation Date/Type/Reason Admit Date/Time Sep 09, 2018 at 14:53 Initial Consult Date 09/09/18 Type of Consult [facility] Requesting Provider: RUSS JEROME MD Date/Time of Note DATE: 09/29/18 TIME: 22:23 24 HR Interval Summary Free Text/Dictation all noted + PAin seen by ortho d/w rn Exam/Review of Systems Exam Vitals Vital Signs Date Temp Pulse Resp B/P (MAP) Pulse Ox O2 O2 Flow FiO2 Time Delivery Rate 09/29/18 98.6 100 116/77 91 20:33 (90) 09/29/18 18 14:00 09/29/18 Room Air 02:55 09/27/18 2.0 21:15 Intake and Output 09/28/18 09/28/18 09/29/18 1515:00 23:00 07:00 IntakeIntake Total 400 ml 400 ml 400 ml BalanceBalance 400 ml 400 ml 400 ml Exam Constitutional: alert, oriented, well developed, distress, frail Psych: anxiety, depression; No no complaints, No nl mood/affect, No confusion, No suicidal, No other Head: normocephalic, atraumatic Eyes: EOMI, nl lids; No nl conjunctiva, No nl sclera, No PERRL, No icteric, No fundi, disc, No other ENMT: No nl external ears & nose, No nl lips & teeth, No nl nasal mucosa & septum, No mucosa pink and moist, No intubated, No tympanic membranes, No other Neck: supple, jvd, bruits; No non-tender, No masses, No thyromegaly, No nuchal rigidity, No other Respiratory: congested cough, diminished breath sounds (Left more prominent than the right side.); No clear to auscultation, No normal air movement, No crackles/rales, No intercostal retraction, No labored breathing, No respirations, No tactile fremitus, No wheezing, No other Cardiovascular: No regular rate and rhythm, No nl pulses, No bruits, No diastolic murmur, No edema, No gallop, No irregular rhythm, No jugular venous distention (JVD), No murmurs/extra sounds, No rub, No systolic murmur, No S3, No S4, No other Gastrointestinal: soft, nl liver, spleen, distended Extremities: edema (Left upper extremity more prominent in the right.), LE BL Results Result Diagram: 09/29/18 0443 09/29/18 0443 Results 24hrs Laboratory Tests Test 09/29/18 04:43 09/29/18 18:34 White Blood Count 3.5 #L Red Blood Count 3.23 L Hemoglobin 10.7 L Hematocrit 33.2 L Mean Corpuscular Volume 102.8 H Mean Corpuscular Hemoglobin 33.1 H Mean Corpuscular Hemoglobin Concent 32.2 Red Cell Distribution Width 17.0 H Platelet Count 192 Mean Platelet Volume 9.4 Immature Granulocytes % 0.000 L Neutrophils % 39.1 Lymphocytes % 41.2 Monocytes % 17.2 H Eosinophils % 0.8 Basophils % 1.7 Nucleated Red Blood Cells % 0.0 Immature Granulocytes # 0.000 Neutrophils # 1.4 L Lymphocytes # 1.5 Monocytes # 0.6 Eosinophils # 0.0 Basophils # 0.1 Nucleated Red Blood Cells # 0.0 Sodium Level 138 Potassium Level 4.6 Chloride Level 103 Carbon Dioxide Level 31 Anion Gap 4 L Blood Urea Nitrogen 28 H Creatinine 0.80 Est Glomerular Filtrat Rate mL/min > 60 Glucose Level 106 Calcium Level 8.6 Phosphorus Level 6.0 H Magnesium Level 2.2 Total Bilirubin 0.5 Direct Bilirubin 0.00 Indirect Bilirubin 0.5 Aspartate Amino Transf (AST/SGOT) 43 Alanine Aminotransferase (ALT/SGPT) 21 Alkaline Phosphatase 93 Total Protein 5.6 L Albumin 2.8 L Globulin 2.80 Albumin/Globulin Ratio 1.00 Prothrombin Time 12.6 Prothrombin Time Ratio 1.0 INR International Normalized Ratio 0.93 Activated Partial Thromboplast Time 33.2 Medications Medication Current Medications Acetaminophen (Tylenol Tab) 500 mg Q6H PRN PO MILD PAIN(1-3)OR ELEVATED TEMP L ast administered on 09/20/18at 22:55; Admin Dose 500 MG; Start 09/09/18 at 22:30 Anastrozole (Arimidex) 1 mg DAILY PO Last administered on 09/29/18at 09:34; Admin Dose 1 MG; Start 09/10/18 at 09:00 Carvedilol (Coreg) 3.125 mg BID PO Last administered on 09/29/18 09:36; Admin Dose 3.125 MG; Start 09/09/18 at 22:30 Docusate Sodium (Colace) 200 mg BID PO Last administered on 09/29/18 22:01; Admin Dose 200 MG; Start 09/09/18 at 22:30 Escitalopram Oxalate (Lexapro) 10 mg DAILY PO Last administered on 09/29/18 09:34; Admin Dose 10 MG; Start 09/10/18 at 09:00 Ondansetron HCl (Zofran Tab) 4 mg Q6H PRN PO NAUSEA AND/OR VOMITING Last administered on 09/20/18 08:37; Admin Dose 4 MG; Start 09/09/18 at 22:30 Pantoprazole (Protonix Tab) 40 mg AC BREAKFAST PO Last administered on 09/29/18 05:52; Admin Dose 40 MG; Start 09/10/18 at 07:00 Polyethylene Glycol (Miralax) 17 gm BID PO Last administered on 09/29/18 09:32; Admin Dose 17 GM; Start 09/09/18 at 22:30 Spironolactone (Aldactone) 50 mg DAILY PO Last administered on 09/29/18 09:33; Admin Dose 50 MG; Start 09/13/18 at 18:00 Potassium Chloride (Klor-Con 20) 20 meq BID PO Last administered on 09/29/18 22:02; Admin Dose 20 MEQ; Start 09/15/18 at 21:00 Albuterol/ Ipratropium (Duoneb) 3 ml Q8H RESP THERAPY PRN HHN SHORTNESS OF BREATH Last administered on 09/15/18 16:09; Admin Dose 3 ML; Start 09/15/18 at 14:30 Ondansetron HCl (Zofran Inj) 4 mg Q6H PRN IV NAUSEA AND/OR VOMITING Last administered on 09/28/18 18:43; Admin Dose 4 MG; Start 09/15/18 at 14:30 Oxycodone HCl (Oxycontin) 20 mg Q12 PO Last administered on 09/29/18 22:02; Admin Dose 20 MG; Start 09/15/18 at 21:00 Olopatadine HCl (Patanol 0.1% Oph) 1 drop BID BOTH EYES Last administered on 09/29/18 22:01; Admin Dose 1 DROP; Start 09/16/18 at 21:00 Loratadine (Claritin) 10 mg DAILY PO Last administered on 09/29/18 09:35; Admin Dose 10 MG; Start 09/17/18 at 09:00 Acetaminophen/ Hydrocodone Bitart ([place] (5/325)) 1 tab Q8 PRN PO PAIN LEVEL 7- 10 Last administered on 09/29/18 15:23; Admin Dose 1 TAB; Start 09/24/18 at 08:00 Lidocaine (Lidoderm) 2 patch DAILY TD Last administered on 09/29/18 09:33; Admin Dose 2 PATCH; Start 09/26/18 at 17:30 Sodium Chloride (Nacl) 2 gm BID WITH MEALS PO Last administered on 09/29/18 09:34; Admin Dose 2 GM; Start 09/28/18 at 17:55 Furosemide (Lasix) 20 mg DAILY PO Last administered on 09/29/18 09:40; Admin Dose 20 MG; Start 09/29/18 at 09:00 DES DUNAWAY MD Sep 29, 2018 22:25
[2018-09-30] VITALS (9 sets, daily range): BP systolic 101–124; BP diastolic 60–83; PULSE 91–98; RESP 17–18
[2018-09-30] MEDS: SODIUM CHLORIDE 1 GM TAB PO SCH ×2 (08:26→17:55)
[2018-09-30] MEDS: PANTOPRAZOLE (EC) 40 MG TAB PO SCH (08:26)
[2018-09-30] MEDS: FUROSEMIDE 20 MG TAB PO SCH (09:00)
[2018-09-30] MEDS: OLOPATADINE 0.1% 5 ML OPH BOTH EYES SCH ×2 (09:32→21:04)
[2018-09-30] MEDS: LIDOCAINE 5% PATCH TD SCH (09:32)
[2018-09-30] MEDS: oxyCODONE (CR) 10 MG TAB [oxyCONTIN] PO SCH ×2 (09:33→21:05)
[2018-09-30] MEDS: POLYETHYLENE GLYCOL 17 GM PACKET PO SCH ×2 (09:33→21:04)
[2018-09-30] MEDS: DOCUSATE SODIUM 100 MG CAP PO SCH ×2 (09:34→21:04)
[2018-09-30] MEDS: SPIRONOLACTONE 50 MG TAB PO SCH (09:34)
[2018-09-30] MEDS: ESCITALOPRAM 10 MG TAB PO SCH (09:34)
[2018-09-30] MEDS: POTASSIUM CHLORIDE (SR) 20 MEQ TAB PO SCH ×2 (09:35→21:04)
[2018-09-30] MEDS: LORATADINE 10 MG TAB PO SCH (09:35)
[2018-09-30] MEDS: ANASTROZOLE 1 MG TAB PO SCH (09:35)
--- NOTE | 2018-09-30 09:45 | PN ---
DATE: 09/30/2018 SUBJECTIVE: The patient had hip surgery today. No other events noted. OBJECTIVE: VITAL SIGNS: Blood pressure is 105/74, pulse 94, respirations 18, temperature 98.3. HEENT: Head is normocephalic. NECK: Supple. HEART: Regular rate. LUNGS: Show diminished breath sounds at the base. ABDOMEN: Soft, nontender to palpation without rebound or guarding. EXTREMITIES: Negative for clubbing, cyanosis. Positive edema. DERMATOLOGIC: No rashes. MUSCULOSKELETAL: No joint effusion. NEUROLOGIC: No change in exam. MEDICATIONS: Reviewed. LABORATORY DATA: From 09/30/2018 was reviewed. ASSESSMENT AND PLAN: 1. Acute hyponatremia. Etiology is likely multifactorial secondary to congestive heart failure. Th e patient's sodium levels have improved with diuretic therapy. Continue current medical management. Monitor sodium levels closely. 2. Volume overload. Etiology may be multifactorial secondary to congestive heart failure. Continue current diuretic regimen. Monitor electrolytes and renal function closely. 3. Hypokalemia. Continue to monitor and replete. 4. Alkalosis. Continue to monitor. 5. Acute hypoxemic respiratory failure secondary to congestive heart failure, improving. 6. Left breast cancer with metastasis. Continue medical management. 7. Right hip fracture. The patient is pending arthroplasty per Dr. Shane. 8. Thrombocytopenia. Continue to monitor. 9. Chronic pain syndrome. Continue current pain regimen. Dictated By: ANDRÉS YO/KEANU Conf#: [id number] DID#: [id number] CC: RUSS JEROME MD;*EndCC*
--- NOTE | 2018-09-30 12:59 | PREAC ---
Date/Time of Note Date/Time of Note DATE: 09/30/18 TIME: 12:56 Anesthesia Eval and Record Evaluation Time Pre-Procedure Interview DATE: 09/30/18 TIME: 12:56 Age 58 Sex female NPO: 8 hrs Preoperative diagnosis R hip pain Planned procedure R hip hemiarthroplasty Past Medical History Past Medical History: Includes Cardio: HTN, Dyslipidemia, CAD, Arrythmia, CHF Endo: Diabetes, Hypothyroid Pulm: COPD, Sleep Apnea Neuro: Peripheral neuropathy Musculoskeletal: Osteoarthritis, Other (bone metastasis) GI: Obesity Heme: Other (pancytopenia from chemo) Psych: Depression, Anxiety Surgery & Anesthesia Issues Significant blood loss Meds Anticoagulation: No Beta Alana within 24 hr: Yes Reason Beta Alana not given: Pt. not on B-Alana Reported Medications Potassium Chloride* (Potassium Chloride*) 20 Meq Tablet.er, 20 MEQ PO DAILY, TAB.SA 09/09/18 Epoetin Cr (Procrit) 4,000 Unit/1 Ml Vial, 4000 UNIT IJ Q FRI, VIAL 7:00AM-7:00PM,HOLD IF HGB>10 09/09/18 Ondansetron Hcl* (Zofran*) 4 Mg Tab, 4 MG PO Q6H PRN for NAUSEA AND OR VOMITING, TAB 08/22/18 Pantoprazole* (Pantoprazole*) 40 Mg Tablet.dr, 40 MG PO AC BREAKFAST, TAB 08/22/18 Oxycodone Hcl* (Oxycontin*) 20 Mg Tab.er.12h, 20 MG PO Q12, TAB 08/22/18 Amlodipine Besylate* (Norvasc*) 5 Mg Tablet, 5 MG PO BID, TAB HOLD FOR SBP <110. 08/22/18 Polyethylene Glycol* (Miralax*) 17 Gm Powd.pack, 17 GM PO BID, #60 PACKET ON THUR-12:00 TO 4:00PM 08/22/18 Magnesium Hydroxide* (Milk Of Magnesia*) 400 Mg/5 Ml Oral.susp, 30 ML PO DAILY, ML 08/22/18 Escitalopram Oxalate* (Lexapro*) 10 Mg Tablet, 10 MG PO DAILY, #30 TAB 08/22/18 Furosemide* (Furosemide*) 20 Mg Tablet, 20 MG PO DAILY, #60 TAB HOLD FOR SBP <110. 08/22/18 Docusate Sodium* (Colace*) 100 Mg Capsule, 200 MG PO BID, #60 CAP 08/22/18 Carvedilol* (Carvedilol*) 3.125 Mg Tablet, 3.125 MG PO BID, #60 TAB HOLD FOR SBP <110 OR VA <60. GIVE WITH FOOD. 08/22/18 Lactose-Free Food (Boost High Protein) 237 Ml Liquid, 120 ML PO BID 08/22/18 Benazepril Hcl* (Benazepril Hcl*) 5 Mg Tablet, 5 MG PO BID, #60 TAB HOLD FOR SBP <110. 08/22/18 Anastrozole* (Arimidex*) 1 Mg Tablet, 1 MG PO DAILY, #30 TAB 08/22/18 Acetaminophen* (Acetaminophen*) 500 MG Extra Strength Tablet, 500 MG PO Q6H PRN for PAIN AND OR ELEVATED TEMP, TAB 08/22/18 Current Medications Acetaminophen (Tylenol Tab) 500 mg Q6H PRN PO MILD PAIN(1-3)OR ELEVATED TEMP Last administered on 09/20/18 22:55; Admin Dose 500 MG; Start 09/09/18 at 22:30 Anastrozole (Arimidex) 1 mg DAILY PO Last administered on 09/30/18 09:35; Admin Dose 1 MG; Start 09/10/18 at 09:00 Carvedilol (Coreg) 3.125 mg BID PO Last administered on 09/29/18 09:36; Admin Dose 3.125 MG; Start 09/09/18 at 22:30 Docusate Sodium (Colace) 200 mg BID PO Last administered on 09/30/18 09:34; Admin Dose 200 MG; Start 09/09/18 at 22:30 Escitalopram Oxalate (Lexapro) 10 mg DAILY PO Last administered on 09/30/18 09:34; Admin Dose 10 MG; Start 09/10/18 at 09:00 Ondansetron HCl (Zofran Tab) 4 mg Q6H PRN PO NAUSEA AND/OR VOMITING Last administered on 09/20/18 08:37; Admin Dose 4 MG; Start 09/09/18 at 22:30 Pantoprazole (Protonix Tab) 40 mg AC BREAKFAST PO Last administered on 09/30/18 08:26; Admin Dose 40 MG; Start 09/10/18 at 07:00 Polyethylene Glycol (Miralax) 17 gm BID PO Last administered on 09/30/18 09:33 ; Admin Dose 17 GM; Start 09/09/18 at 22:30 Spironolactone (Aldactone) 50 mg DAILY PO Last administered on 09/30/18 09:34; Admin Dose 50 MG; Start 09/13/18 at 18:00 Potassium Chloride (Klor-Con 20) 20 meq BID PO Last administered on 09/30/18 09:35; Admin Dose 20 MEQ; Start 09/15/18 at 21:00 Albuterol/ Ipratropium (Duoneb) 3 ml Q8H RESP THERAPY PRN HHN SHORTNESS OF BREATH Last administered on 09/15/18 16:09; Admin Dose 3 ML; Start 09/15/18 at 14:30 Ondansetron HCl (Zofran Inj) 4 mg Q6H PRN IV NAUSEA AND/OR VOMITING Last administered on 09/28/18 18:43; Admin Dose 4 MG; Start 09/15/18 at 14:30 Oxycodone HCl (Oxycontin) 20 mg Q12 PO Last administered on 09/30/18 09:33; Admin Dose 20 MG; Start 09/15/18 at 21:00 Olopatadine HCl (Patanol 0.1% Oph) 1 drop BID BOTH EYES Last administered on 09/30/18 09:32; Admin Dose 1 DROP; Start 09/16/18 at 21:00 Loratadine (Claritin) 10 mg DAILY PO Last administered on 09/30/18 09:35; Admin Dose 10 MG; Start 09/17/18 at 09:00 Acetaminophen/ Hydrocodone Bitart ([place] (5/325)) 1 tab Q8 PRN PO PAIN LEVEL 7- 10 Last administered on 09/29/18 23:06; Admin Dose 1 TAB; Start 09/24/18 at 08:00 Lidocaine (Lidoderm) 2 patch DAILY TD Last administered on 09/30/18 09:32; Admin Dose 2 PATCH; Start 09/26/18 at 17:30 Sodium Chloride (Nacl) 2 gm BID WITH MEALS PO Last administered on 09/30/18 08:26; Admin Dose 2 GM; Start 09/28/18 at 17:55 Furosemide (Lasix) 20 mg DAILY PO Last administered on 4/14/19at 09:40; Admin Dose 20 MG; Start 09/29/18 at 09:00 Meds reviewed: Yes Allergies Coded Allergies: No Known Allergy (Unverified , 09/09/18) Allergies Reviewed: Yes Labs/Studies Labs Reviewed: Reviewed by anesthesiologist Result Diagram: 09/29/18 0443 09/30/18 0232 Laboratory Tests 09/30/18 02:32 Blood Bank Test 09/30/18 02:33 Antibody Screen NEGATIVE Blood Product Summary Counts Blood Type O POSITIVE Crossmatch Red Blood Cells test: Negative Studies: ECG, CXR, 2D Echo Pre-procedure Exam Last vitals Vital Signs Date Temp Pulse Resp B/P (MAP) Pulse Ox O2 O2 Flow FiO2 Time Delivery Rate 09/30/18 98.3 94 18 105/74 99 Room Air 07:40 (84) 09/27/18 2.0 21:15 Airway: Adequate mouth opening, Adequate thyromental dist Mallampati: Mallampati III Teeth: Normal Lung: Normal Heart: Normal ASA Physical Status ASA physical status: 4 Emergency: None Planned Anesthetic General/MAC: ETT, A Line, CVP, PCWP, LUISA Planned Pain Management Sub-arachniod narcotics, Parenteral pain med, BOOK REVIEWER, Other neuraxial med Pre-operative Attestations Prior to commencing anesthesia and surgery, the patient was re-evaluated, there was verification of: *The patient's identity *The results of appropriate recent lab work and preoperative vital signs *The above evaluation not changing prior to induction *Anesthetic plan, risk benefits, alternative and complications discussed with patient/family; questions answered; patient/family understands, accepts and wishes to proceed. SHANTE FELDMAN MD Sep 30, 2018 12:59
--- NOTE | 2018-09-30 18:55 | CONS ---
Assessment/Plan Assessment/Plan Hospital Course (Demo Recall) IMPRESSION: 1. Congestive heart failure exacerbation, diastolic by most recent echo, acute on chronic.-neg trop x 3. Echo this admit EF 60/small pericardial effusion 2. Hypotension, currently low 3. Anasarca. 4. Metastatic breast carcinoma. 5. Leukopenia. 6. Thrombocytopenia.-ongoing 7. Pericardial effusion-small by echo with no HD consequence at this time 8. Pleural effusions-recurrent. Initial cytology negative. ? PLeurodesis 9. R femoral head pathologic fracture Recc: -On med-surg -Continue Lasix diuresis -folllow K clsoely now on standing repletion BID and aldactone -Continue arimidex -Follow NA on salt tabs -coreg as tolerated only -F/U cytology from thoracentesis -TO OR tomorrow for ORIF of R femoral neck fracture Consultation Date/Type/Reason Admit Date/Time Sep 09, 2018 at 14:53 Initial Consult Date 09/09/18 Type of Consult Cardiology Reason for Consultation CHF Requesting Provider: RUSS JEROME MD Date/Time of Note DATE: 09/30/18 TIME: 18:51 Exam/Review of Systems Vital Signs Vitals Vital Signs Date Temp Pulse Resp B/P (MAP) Pulse Ox O2 O2 Flow FiO2 Time Delivery Rate 09/30/18 98.9 92 18 121/75 99 Room Air 15:38 (90) 09/27/18 2.0 21:15 Intake and Output 09/29/18 09/29/18 09/30/18 1515:00 23:00 07:00 IntakeIntake Total 400 ml 400 ml 350 ml BalanceBalance 400 ml 400 ml 350 ml Exam Exam Review of Systems: CONSTITUTIONAL: No fevers, chills. PULMONARY: No sob CARDIOVASCULAR: No chest pain/palpitations GASTROINTESTINAL: No nausea/vomiting. GENITOURINARY: No hematuria/dysuria. MUSCULOSKELETAL: No myagias/arthalgias. PSYCHIATRIC: The patient denies depression. NEUROLOGIC: No weakness Constitutional: alert Psych: no complaints Head: normocephalic ENMT: mucosa pink and moist Neck: supple, jvd (9 cm water) Respiratory: clear to auscultation Cardiovascular: regular rate and rhythm Gastrointestinal: soft, non-tender Musculoskeletal: muscle tone, muscle weakness (mild generalized) Extremities: edema (none) 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: other (No focal deficitgs) Labs Result Diagram: 09/30/18 1355 09/30/18 0232 Results 24hrs Laboratory Tests Test 09/30/18 02:32 09/30/18 07:02 09/30/18 13:55 Prothrombin Time 13.2 Prothrombin Time Ratio 1.0 INR International 0.99 Normalized Ratio Sodium Level 137 Potassium Level 4.9 Chloride Level 103 Carbon Dioxide Level 29 Anion Gap 5 Blood Urea Nitrogen 31 H Creatinine 0.93 Est Glomerular Filtrat > 60 Rate mL/min Glucose Level 96 Calcium Level 8.5 Phosphorus Level 5.7 H Magnesium Level 2.1 Lab Scanned Report REFERENCE LAB White Blood Count 4.7 #L Red Blood Count 4.08 #L Hemoglobin 12.9 # Hematocrit 40.6 # Mean Corpuscular Volume 99.5 Mean Corpuscular Hemoglobin 31.6 Mean Corpuscular 31.8 L Hemoglobin Concent Red Cell Distribution Width 18.3 H Platelet Count 179 Mean Platelet Volume 9.1 Immature Granulocytes % 0.200 Neutrophils % 47.9 Lymphocytes % 34.6 Monocytes % 15.0 H Eosinophils % 0.6 Basophils % 1.7 Nucleated Red Blood Cells % 0.0 Immature Granulocytes # 0.010 Neutrophils # 2.3 Lymphocytes # 1.6 Monocytes # 0.7 Eosinophils # 0.0 Basophils # 0.1 Nucleated Red Blood Cells # 0.0 Medications Medications Current Medications Acetaminophen (Tylenol Tab) 500 mg Q6H PRN PO MILD PAIN(1-3)OR ELEVATED TEMP Last administered on 09/20/18 22:55; Admin Dose 500 MG; Start 09/09/18 at 22:30 Anastrozole (Arimidex) 1 mg DAILY PO Last administered on 09/30/18 09:35; Admin Dose 1 MG; Start 09/10/18 at 09:00 Carvedilol (Coreg) 3.125 mg BID PO Last administered on 09/29/18 09:36; Admin Dose 3.125 MG; Start 09/09/18 at 22:30 Docusate Sodium (Colace) 200 mg BID PO Last administered on 09/30/18 09:34; Admin Dose 200 MG; Start 09/09/18 at 22:30 Escitalopram Oxalate (Lexapro) 10 mg DAILY PO Last administered on 09/30/18 09 :34; Admin Dose 10 MG; Start 09/10/18 at 09:00 Ondansetron HCl (Zofran Tab) 4 mg Q6H PRN PO NAUSEA AND/OR VOMITING Last administered on 09/20/18 08:37; Admin Dose 4 MG; Start 09/09/18 at 22:30 Pantoprazole (Protonix Tab) 40 mg AC BREAKFAST PO Last administered on 09/30/18 08:26; Admin Dose 40 MG; Start 09/10/18 at 07:00 Polyethylene Glycol (Miralax) 17 gm BID PO Last administered on 09/30/18 09:33; Admin Dose 17 GM; Start 09/09/18 at 22:30 Spironolactone (Aldactone) 50 mg DAILY PO Last administered on 09/30/18 09:34; Admin Dose 50 MG; Start 09/13/18 at 18:00 Potassium Chloride (Klor-Con 20) 20 meq BID PO Last administered on 09/30/18 09:35; Admin Dose 20 MEQ; Start 09/15/18 at 21:00 Albuterol/ Ipratropium (Duoneb) 3 ml Q8H RESP THERAPY PRN HHN SHORTNESS OF BREATH Last administered on 09/15/18 16:09; Admin Dose 3 ML; Start 09/15/18 at 14:30 Ondansetron HCl (Zofran Inj) 4 mg Q6H PRN IV NAUSEA AND/OR VOMITING Last administered on 09/28/18 18:43; Admin Dose 4 MG; Start 09/15/18 at 14:30 Oxycodone HCl (Oxycontin) 20 mg Q12 PO Last administered on 09/30/18 09:33; Admin Dose 20 MG; Start 09/15/18 at 21:00 Olopatadine HCl (Patanol 0.1% Oph) 1 drop BID BOTH EYES Last administered on 09/30/18 09:32; Admin Dose 1 DROP; Start 09/16/18 at 21:00 Loratadine (Claritin) 10 mg DAILY PO Last administered on 09/30/18 09:35; Admin Dose 10 MG; Start 09/17/18 at 09:00 Acetaminophen/ Hydrocodone Bitart ([employer] (5/325)) 1 tab Q8 PRN PO PAIN LEVEL 7- 10 Last administered on 09/29/18 23:06; Admin Dose 1 TAB; Start 09/24/18 at 08:00 Lidocaine (Lidoderm) 2 patch DAILY TD Last administered on 09/30/18at 09:32; Admin Dose 2 PATCH; Start 09/26/18 at 17:30 Sodium Chloride (Nacl) 2 gm BID WITH MEALS PO Last administered on 09/30/18 08:26; Admin Dose 2 GM; Start 09/28/18 at 17:55 Furosemide (Lasix) 20 mg DAILY PO Last administered on 09/29/18at 09:40; Admin Dose 20 MG; Start 09/29/18 at 09:00 KAMILA TERESA Sep 30, 2018 18:55
--- NOTE | 2018-09-30 19:29 | PN ---
Date/Time of Note Date/Time of Note DATE: 09/30/18 TIME: 19:24 Assessment/Plan VTE Prophylaxis Risk score (from Nsg)>0 risk: 7 SCD applied (from Ns): No SCD contraindicated: low risk/ambulating Pharmacological prophylaxis: NA/contraindicated Pharm contraindication: low risk/ambulating Lines/Catheters IV [facility]from [facility]): Peripheral IV Central line still needed: No Urinary Cath still in place: No Reason Cath still needed: urinary retention Assessment/Plan Hospital Course S/p recurrent thoracentesis with re-occultation of fluid. By calculating patient's preoperative risk the patient is in mild to moderate cardiac risk category. Due to of multiple vertebral fractures handling of the patient's body on the operative table must be extremely careful. Extra dose of Lasix will be g iven now to diurese the patient which looks slightly more congested comparing with the yesterday's white having anasarca. No contraindications to surgery. Assessment/Plan S/p recurrent thoracentesis with re-occultation of fluid. By calculating patient's preoperative risk the patient is in mild to moderate cardiac risk category. Due to of multiple vertebral fractures handling of the patient's body on the operative table must be extremely careful. Extra dose of Lasix will be given now to diurese the patient which looks slightly more congested comparing with the yesterday's white having anasarca. No contraindications to surgery. Assessment/Plan 1. PRIMARY ADENOCARCINOMA of the left breast. MULTIPLE BONY METS, PULMONARY METS;LIVER METS CHEMO ON HOLD; PT HAS A VERY GOOD RESPONSE TO CHEMO AND AI 2. Severe pain in the interscapular and lumbar sacral area most probably metastatic lesion possible femoral fracture. pathologic fracture of T9 with 60% of loss of height. Neurosurgical f/u. 3. Obesity. 4. Weight loss 60 pounds during the last 2 years by diet 5. PMS. 6. Myopia. 7. Anemia chronic disease with a drop of her hematocrit to 27 and regaining to 30 without any measures. Latest results 28. Protonix was added. Will recheck tomorrow;Leukopenia.Thrombocytopenia; 8. Anxiety disorder. Claustrophobia. Increase Ativan to 1 mg every 8 as needed at Lexapro 10 mg daily. 9. Posttraumatic stress disorder. 10. Pain in the left forearm with a history of fracture of ulna and radius. 11. Tachycardia 12. Hypoxemia at night marginal improved after 2 L of nasal cannula oxygen. 13. Deconditioning 14. 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 MRI: 09/28/18:diffuse osseous metastatic disease with multiple pathologic compression fractures at least involving the T4, T5, T7, T9 and T11 levels. There is likely mild cortical breakthrough at several levels resulting in mild central canal narrowing. No gross evidence of cord compression is seen.. 15. Pain syndrome. Today the most painful zone is in the right hip area. 16. Hyponatremia-corrected; hypokalemia after massive diuresis- corrected.Recheck and sodium chloride daily with the dose to 4 mg today 17. Leucopenia-improved. 18. Neutropenia with occasional fever and chills. Last chemotherapy 5 days ago. 19. Hypoalbuminemia. 20.Right sided cp after catheter insertion and correction less discomfort. 21. Decreased edema both lower extremities with [id number] with Pleural and Pericardial effusion. 22.Swelling of the left forearm-persist. Now no erythema. 23.bilateral pleural effusions ; plan to perform tap tomorrow morning preferably from the right side. 24. Systolic over diastolic congestive heart failure with a right more than left lower extremity swelling with no DVT in latest venous Doppler. 25. Cellulitis of the left forearm with increased edema anteriorly. 26. Pathologic fracture of the right hip; planned right hip arthroplasty. Result Diagram: 09/30/18 1355 09/30/18 0232 Results 24hrs Laboratory Tests Test 09/30/18 02:32 09/30/18 07:02 09/30/18 13:55 Prothrombin Time 13.2 Prothrombin Time Ratio 1.0 INR International 0.99 Normalized Ratio Sodium Level 137 Potassium Level 4.9 Chloride Level 103 Carbon Dioxide Level 29 Anion Gap 5 Blood Urea Nitrogen 31 H Creatinine 0.93 Est Glomerular Filtrat > 60 Rate mL/min Glucose Level 96 Calcium Level 8.5 Phosphorus Level 5.7 H Magnesium Level 2.1 Lab Scanned Report REFERENCE LAB White Blood Count 4.7 #L Red Blood Count 4.08 #L Hemoglobin 12.9 # Hematocrit 40.6 # Mean Corpuscular Volume 99.5 Mean Corpuscular Hemoglobin 31.6 Mean Corpuscular 31.8 L Hemoglobin Concent Red Cell Distribution Width 18.3 H Platelet Count 179 Mean Platelet Volume 9.1 Immature Granulocytes % 0.200 Neutrophils % 47.9 Lymphocytes % 34.6 Monocytes % 15.0 H Eosinophils % 0.6 Basophils % 1.7 Nucleated Red Blood Cells % 0.0 Immature Granulocytes # 0.010 Neutrophils # 2.3 Lymphocytes # 1.6 Monocytes # 0.7 Eosinophils # 0.0 Basophils # 0.1 Nucleated Red Blood Cells # 0.0 Subjective 24 Hr Interval Summary Free Text/Dictation Weakness. I am getting dizzy when I get up. I am tolerating pain until the time of her next help with this coming. Edema of legs right more than left. No fever and chills no nausea vomiting Constitutional: poor po, requiring O2; No no complaints, No improved, No chills, No diaphoresis, No disoriented, No febrile, No requiring IVF, No other Eyes: No no complaints, No pain, No discharge, No redness, No visual change, No other ENT: No no complaints, No bleeding, No pain, No congestion, No discharge, No dysphagia, No sore throat, No other Respiratory: cough; No no complaints, No pain, No pleuritic pain, No shortness of breath, No spu anselmo, No wheezing, No other Cardiovascular: edema, lightheadedness, orthopenea, palpitations; No no complaints, No chest pain, No paroxysmal nocturnal dyspnea, No other Gastrointestinal: constipation, passing stool; No no complaints, No pain, No blood, No decreased appetite, No diarrhea, No flatus, No nausea, No vomiting, No other Genitourinary: dysuria; No no complaints, No bleeding, No discharge, No flank pain, No hematuria, No other Musculoskeletal: back pain, bone/joint pain, neck pain; No no complaints, No restricted range of motion, No swelling, No other Skin: No no complaints, No bruising, No erythema, No laceration, No pruritis, No rash, No skin lesions, No other Neurologic: headache; No no complaints, No confusion, No dizziness, No focal-weakness, No syncope, No seizure, No other Lymphatic: No no complaints, No adenopathy, No tender nodes, No lymphadema, No other Psychological: anxiety, depression; No no complaints, No nl mood/affect, No confusion, No suicidal, No other Immunologic: No no complaints, No immunodeficiency, No pruritis, No rhinitis, No urticaria, No other Exam/Review of Systems Exam Vitals Vital Signs Date Temp Pulse Resp B/P (MAP) Pulse Ox O2 O2 Flow FiO2 Time Delivery Rate 09/30/18 98.9 92 18 121/75 99 Room Air 15:38 (90) 09/27/18 2.0 21:15 Intake and Output 09/29/18 09/29/18 09/30/18 1515:00 23:00 07:00 IntakeIntake Total 400 ml 400 ml 350 ml BalanceBalance 400 ml 400 ml 350 ml Constitutional: alert, oriented, well developed, distress, frail; No non-verbal, No obese, No other Psych: anxiety, depression; No no complaints, No nl mood/affect, No confusion, No suicidal, No other Head: normocephalic, atraumatic Eyes: EOMI, nl lids, PERRL; No nl conjunctiva, No nl sclera, No icteric, No fundi, disc, No other ENMT: No nl external ears & nose, No nl lips & teeth, No nl nasal mucosa & septum, No mucosa pink and moist, No intubated, No tympanic membranes, No other Neck: bruits, thyromegaly; No supple, No non-tender, No jvd, No masses, No nuchal rigidity, No other Respiratory: congested cough, diminished breath sounds; No clear to auscultation, No normal air movement, No crackles/rales, No intercostal retraction, No labored breathing, No respirations, No tactile fremitus, No wheezing, No other Cardiovascular: regular rate and rhythm; No nl pulses, No bruits, No diastolic murmur, No edema, No gallop, No irregular rhythm, No jugular venous distention (JVD), No murmurs/extra sounds, No rub, No systolic murmur, No S3, No S4, No other Gastrointestinal: No soft, No nl liver, spleen, No non-tender, No ascites, No bowel sounds, No distended, No firm, No hepatomegaly, No mass, No rebound or guarding, No splenomegaly, No surgical scars, No tender, No other Genitourinary - Female: No nl adnexae, No nl external genitalia, No CMT, No CVA tenderness, No uterus, No other Musculoskeletal: joint tenderness; No nl extremities to inspection, No nl gait and stance, No muscle tone, No muscle weakness, No range of motion, No spine non-tender, No swelling, No other Extremities: edema; No normal pulses, No calf tenderness, No cyanosis, No clubbing, No pitting pedal edema, No palpable cord, No tenderness, No other 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: SPACE [employer]ER 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; No nl mental status, No nl speech, No nl strength, No confused, No DTR's symmetric, No focal weakness, No lethargic, No numbness, No reflexes, No unresponsive, No other Skin: nl turgor; No rash or lesions, No diaphoresis, No ecchymosis, No laceration, No p uncture, No other Lymph: No nl lymph nodes, No enlarged, No nontender, No other Results Results 24hrs Laboratory Tests Test 09/30/18 02:32 09/30/18 07:02 09/30/18 13:55 Prothrombin Time 13.2 Prothrombin Time Ratio 1.0 INR International 0.99 Normalized Ratio Sodium Level 137 Potassium Level 4.9 Chloride Level 103 Carbon Dioxide Level 29 Anion Gap 5 Blood Urea Nitrogen 31 H Creatinine 0.93 Est Glomerular Filtrat > 60 Rate mL/min Glucose Level 96 Calcium Level 8.5 Phosphorus Level 5.7 H Magnesium Level 2.1 Lab Scanned Report REFERENCE LAB White Blood Count 4.7 #L Red Blood Count 4.08 #L Hemoglobin 12.9 # Hematocrit 40.6 # Mean Corpuscular Volume 99.5 Mean Corpuscular Hemoglobin 31.6 Mean Corpuscular 31.8 L Hemoglobin Concent Red Cell Distribution Width 18.3 H Platelet Count 179 Mean Platelet Volume 9.1 Immature Granulocytes % 0.200 Neutrophils % 47.9 Lymphocytes % 34.6 Monocytes % 15.0 H Eosinophils % 0.6 Basophils % 1.7 Nucleated Red Blood Cells % 0.0 Immature Granulocytes # 0.010 Neutrophils # 2.3 Lymphocytes # 1.6 Monocytes # 0.7 Eosinophils # 0.0 Basophils # 0.1 Nucleated Red Blood Cells # 0.0 Medications Medication Current Medications Acetaminophen (Tylenol Tab) 500 mg Q6H PRN PO MILD PAIN(1-3)OR ELEVATED TEMP Last administered on 09/20/18at 22:55; Admin Dose 500 MG; Start 09/09/18 at 22:30 Anastrozole (Arimidex) 1 mg DAILY PO Last administered on 09/30/18 09:35; Admin Dose 1 MG; Start 09/10/18 at 09:00 Carvedilol (Coreg) 3.125 mg BID PO Last administered on 09/29/18 09:36; Admin Dose 3.125 MG; Start 09/09/18 at 22:30 Docusate Sodium (Colace) 200 mg BID PO Last administered on 09/30/18 09:34; Admin Dose 200 MG; Start 09/09/18 at 22:30 Escitalopram Oxalate (Lexapro) 10 mg DAILY PO Last administered on 09/30/18 09:34; Admin Dose 10 MG; Start 09/10/18 at 09:00 Ondansetron HCl (Zofran Tab) 4 mg Q6H PRN PO NAUSEA AND/OR VOMITING Last administered on 09/20/18 08:37; Admin Dose 4 MG; Start 09/09/18 at 22:30 Pantoprazole (Protonix Tab) 40 mg AC BREAKFAST PO Last administered on 09/30/18 08:26; Admin Dose 40 MG; Start 09/10/18 at 07:00 Polyethylene Glycol (Miralax) 17 gm BID PO Last administered on 09/30/18 09:33; Admin Dose 17 GM; Start 09/09/18 at 22:30 Spironolactone (Aldactone) 50 mg DAILY PO Last administered on 09/30/18 09:34; Admin Dose 50 MG; Start 09/13/18 at 18:00 Potassium Chloride (Klor-Con 20) 20 meq BID PO Last administered on 09/30/18 09:35; Admin Dose 20 MEQ; Start 09/15/18 at 21:00 Albuterol/ Ipratropium (Duoneb) 3 ml Q8H RESP THERAPY PRN HHN SHORTNESS OF BREATH Last administered on 09/15/18 16:09; Admin Dose 3 ML; Start 09/15/18 at 14:30 Ondansetron HCl (Zofran Inj) 4 mg Q6H PRN IV NAUSEA AND/OR VOMITING Last administered on 09/28/18 18:43; Admin Dose 4 MG; Start 09/15/18 at 14:30 Oxycodone HCl (Oxycontin) 20 mg Q12 PO Last administered on 09/30/18 09:33; Admin Dose 20 MG; Start 09/15/18 at 21:00 Olopatadine HCl (Patanol 0.1% Oph) 1 drop BID BOTH EYES Last administered on 09/30/18 09:32; Admin Dose 1 DROP; Start 09/16/18 at 21:00 Loratadine (Claritin) 10 mg DAILY PO Last administered on 09/30/18 09:35; Admin Dose 10 MG; Start 09/17/18 at 09:00 Acetaminophen/ Hydrocodone Bitart ([place] (5/325)) 1 tab Q8 PRN PO PAIN LEVEL 7- 10 Last administered on 09/29/18 23:06; Admin Dose 1 TAB; Start 09/24/18 at 08:00 Lidocaine (Lidoderm) 2 patch DAILY TD Last administered on 09/30/18 09:32; Admin Dose 2 PATCH; Start 09/26/18 at 17:30 Furosemide (Lasix) 20 mg DAILY PO Last administered on 09/29/18 09:40; Admin Dose 20 MG; Start 09/29/18 at 09:00 Sodium Chloride (Nacl) 2 gm DAILY PO ; Start 10/01/18 at 09:00; Status UNV RUSS JEROME MD Sep 30, 2018 19:29
[2018-09-30] MEDS: ALBUMIN HUMAN 25% 100 ML IV SCH (21:03)
--- NOTE | 2018-09-30 22:58 | CONS ---
Assessment/Plan Assessment/Plan Hospital Course (Demo Recall) METASTATIC BREAST CANCER WITH PRIMARY ADENOCARCINOMA IN the left breast. MULTIPLE BONY METS, PULMONARY METS, LIVER METS CHEMO ON HOLD PT HAS A VERY GOOD RESPONSE TO CHEMO AND AI CONT AI FOR NOW CT ABD FOR RESTAGING 08.27.18- noted , stable CT CHEST- STABLE/IMPROVING 1. Moderate bilateral pleural effusions with adjacent lung base consolidation/atelectasis. 2. Moderate pericardial effusion. 3. Decreased size of previously prominent mediastinal lymph nodes. Decreased size of sub centimeter axillary lymph nodes. 4. Stable nonspecific pulmonary nodules as described above. 5. Stable soft tissue nodule of the anterior left chest wall/breast. 6. Redemonstrated diffuse sclerotic metastatic osseous lesions with stable compression deformities of the thoracic spine. 7. Nodular contour of the liver with multiple hypoattenuating masses, grossly similar to prior exam. CYTOLOGY-NEG CARD - TO MONITOR FOR PERICARDIAL TAMPONADE, FOR NOW NO NEED TO DO PERICARDIOCENTESIS R HIP PAIN MRI R HIP- nondisplaced pathological fracture of the right femoral head merging with the known metastatic lesion. Interval development of synovitis and a large joint effusion as well as psoas bursitis. CT PELVIS- Subacute to chronic pathologic subcapital fracture of the right femoral neck. ORTHO -Hemiarthroplasty of the right hip as soon as she can be medically cleared for surgery. PT CLEARED FROM MY POINT TO OR tomorrow for ORIF of R femoral neck fracture CONT PAIN CONTROL Leucopenia- post chemo NEUPOGEN- DC monitor closely post Neutropenia with occasional fever and chills. Anemia chronic disease SOB PLEURAL EFFUSIONS post thoracentesis cytology -NEG ON 09.18.18 Fluid overload diuretic cardiology F-UP Congestive heart failure exacerbation, diastolic by most recent echo, acute on chronic.-neg trop x 3. Echo this admit EF 60/small pericardia effusion Hypotension, currently borderline-overall improved Anasarca. Severe pain in the interscapular and lumbar sacral area most probably metastatic lesion possible femoral fracture. pathologic fracture of T9 with 60% of loss of height. Obesity. Weight loss 60 pounds during the last 2 years PMS. Myopia. Anxiety disorder. Claustrophobia. Posttraumatic stress disorder. Pain in the left forearm with a history of fracture of ulna and radius. Tachycardia Hypoxemia at night marginal improved after 2 L of nasal cannula oxygen. Deconditioning Pain syndrome. Today the most painful zone is in the right hip area. X-ray did not show any fractures. Hyponatremia- resolved Hypoalbuminemia Right sided cp after catheter insertion and correction less dis comfort. Decreased edema both lower extremities with hypotension-improving Swelling of the left forearm-persist. Consultation Date/Type/Reason Admit Date/Time Sep 09, 2018 at 14:53 Initial Consult Date 09/09/18 Type of Consult [facility] Requesting Provider: RUSS JEROME MD Date/Time of Note DATE: 09/30/18 TIME: 22:56 24 HR Interval Summary Free Text/Dictation ALL NOTED D/W RN Exam/Review of Systems Exam Vitals Vital Signs Date Temp Pulse Resp B/P (MAP) Pulse Ox O2 O2 Flow FiO2 Time Delivery Rate 09/30/18 98.5 94 18 101/60 93 Room Air 21:05 (74) 09/27/18 2.0 21:15 Intake and Output 09/29/18 09/29/18 09/30/18 1515:00 23:00 07:00 IntakeIntake Total 400 ml 400 ml 350 ml BalanceBalance 400 ml 400 ml 350 ml Exam Constitutional: alert, oriented, well developed, distress, frail Psych: anxiety, depression; No no complaints, No nl mood/affect, No confusion, No suicidal, No other Head: normocephalic, atraumatic Eyes: EOMI, nl lids; No nl conjunctiva, No nl sclera, No PERRL, No icteric, No fundi, disc, No other ENMT: No nl external ears & nose, No nl lips & teeth, No nl nasal mucosa & septum, No mucosa pink and moist, No intubated, No tympanic membranes, No other Neck: supple, jvd, bruits; No non-tender, No masses, No thyromegaly, No nuchal rigidity, No other Respiratory: congested cough, diminished breath sounds (Left more prominent than the right side.); No clear to auscultation, No normal air movement, No crackles/rales, No intercostal retraction, No labored breathing, No respirations, No tactile fremitus, No wheezing, No other Cardiovascular: No regular rate and rhythm, No nl pulses, No bruits, No diastolic murmur, No edema, No gallop, No irregular rhythm, No jugular venous distention (JVD), No murmurs/extra sounds, No rub, No systolic murmur, No S3, No S4, No other Gastrointestinal: soft, nl liver, spleen, distended Extremities: edema (Left upper extremity more prominent in the right.), LE BL Results Result Diagram: 09/30/18 1355 09/30/18 0232 Results 24hrs Laboratory Tests Test 09/30/18 02:32 09/30/18 07:02 09/30/18 13:55 Prothrombin Time 13.2 Prothrombin Time Ratio 1.0 INR International 0.99 Normalized Ratio Sodium Level 137 Potassium Level 4.9 Chloride Level 103 Carbon Dioxide Level 29 Anion Gap 5 Blood Urea Nitrogen 31 H Creatinine 0.93 Est Glomerular Filtrat > 60 Rate mL/min Glucose Level 96 Calcium Level 8.5 Phosphorus Level 5.7 H Magnesium Level 2.1 Lab Scanned Report REFERENCE LAB White Blood Count 4.7 #L Red Blood Count 4.08 #L Hemoglobin 12.9 # Hematocrit 40.6 # Mean Corpuscular Volume 99.5 Mean Corpuscular Hemoglobin 31.6 Mean Corpuscular 31.8 L Hemoglobin Concent Red Cell Distribution Width 18.3 H Platelet Count 179 Mean Platelet Volume 9.1 Immature Granulocytes % 0.200 Neutrophils % 47.9 Lymphocytes % 34.6 Monocytes % 15.0 H Eosinophils % 0.6 Basophils % 1.7 Nucleated Red Blood Cells % 0.0 Immature Granulocytes # 0.010 Neutrophils # 2.3 Lymphocytes # 1.6 Monocytes # 0.7 Eosinophils # 0.0 Basophils # 0.1 Nucleated Red Blood Cells # 0.0 Medications Medication Current Medications Acetaminophen (Tylenol Tab) 500 mg Q6H PRN PO MILD PAIN(1-3)OR ELEVATED TEMP Last administered on 09/20/18 22:55; Admin Dose 500 MG; Start 09/09/18 at 22:30 Anastrozole (Arimidex) 1 mg DAILY PO Last administered on 09/30/18 09:35; Admin Dose 1 MG; Start 09/10/18 at 09:00 Carvedilol (Coreg) 3.125 mg BID PO Last administered on 09/29/18 09:36; Admin Dose 3.125 MG; Start 09/09/18 at 22:30 Docusate Sodium (Colace) 200 mg BID PO Last administered on 09/30/18at 21:04; Admin Dose 200 MG; Start 09/09/18 at 22:30 Escitalopram Oxalate (Lexapro) 10 mg DAILY PO Last administered on 09/30/18 09:34; Admin Dose 10 MG; Start 09/10/18 at 09:00 Ondansetron HCl (Zofran Tab) 4 mg Q6H PRN PO NAUSEA AND/OR VOMITING Last administered on 09/20/18 08:37; Admin Dose 4 MG; Start 09/09/18 at 22:30 Pantoprazole (Protonix Tab) 40 mg AC BREAKFAST PO Last administered on 09/30/18 08:26; Admin Dose 40 MG; Start 09/10/18 at 07:00 Polyethylene Glycol (Miralax) 17 gm BID PO Last administered on 09/30/18 21:04; Admin Dose 17 GM; Start 09/09/18 at 22:30 Spironolactone (Aldactone) 50 mg DAILY PO Last administered on 09/30/18 09:34; Admin Dose 50 MG; Start 09/13/18 at 18:00 Potassium Chloride (Klor-Con 20) 20 meq BID PO Last administered on 09/30/18 21:04; Admin Dose 20 MEQ; Start 09/15/18 at 21:00 Albuterol/ Ipratropium (Duoneb) 3 ml Q8H RESP THERAPY PRN HHN SHORTNESS OF BREATH Last administered on 09/15/18 16:09; Admin Dose 3 ML; Start 09/15/18 at 14:30 Ondansetron HCl (Zofran Inj) 4 mg Q6H PRN IV NAUSEA AND/OR VOMITING Last administered on 09/28/18 18:43; Admin Dose 4 MG; Start 09/15/18 at 14:30 Oxycodone HCl (Oxycontin) 20 mg Q12 PO Last administered on 09/30/18 21:05; Admin Dose 20 MG; Start 09/15/18 at 21:00 Olopatadine HCl (Patanol 0.1% Oph) 1 drop BID BOTH EYES Last administered on 21:04; Admin Dose 1 DROP; Start 09/16/18 at 21:00 Loratadine (Claritin) 10 mg DAILY PO Last administered on 09/30/18 09:35; Admin Dose 10 MG; Start 09/17/18 at 09:00 Acetaminophen/ Hydrocodone Bitart ([place] (5/325)) 1 tab Q8 PRN PO PAIN LEVEL 7- 10 Last administered on 09/29/18at 23:06; Admin Dose 1 TAB; Start 09/24/18 at 08:00 Lidocaine (Lidoderm) 2 patch DAILY TD Last administered on 09/30/18at 09:32; Admin Dose 2 PATCH; Start 09/26/18 at 17:30 Furosemide (Lasix) 20 mg DAILY PO Last administered on 09/29/18at 09:40; Admin Dose 20 MG; Start 09/29/18 at 09:00 Sodium Chloride (Nacl) 2 gm DAILY PO ; Start 10/01/18 at 09:00 Albumin Human 100 ml @ 100 mls/hr Q8H IV Last administered on 09/30/18at 21:03; Admin Dose 100 MLS/HR; Start 09/30/18 at 19:30; Stop 10/01/18 at 12:29 DES DUNAWAY MD Sep 30, 2018 22:58
[2018-10-01] VITALS (25 sets, daily range): BP systolic 86–115; BP diastolic 56–78; PULSE 0–103; RESP 11–22
[2018-10-01] MEDS: ALBUMIN HUMAN 25% 100 ML IV SCH ×2 (04:32→11:08)
[2018-10-01] MEDS: PANTOPRAZOLE (EC) 40 MG TAB PO SCH (07:20)
--- NOTE | 2018-10-01 08:35 | PN ---
Date/Time of Note Date/Time of Note DATE: 10/01/18 TIME: 08:32 Assessment/Plan VTE Prophylaxis Risk score (from Nsg)>0 risk: 8 SCD applied (from Ns): No SCD contraindicated: low risk/ambulating Pharmacological prophylaxis: NA/contraindicated Pharm contraindication: low risk/ambulating Lines/Catheters IV Catheter Type (from Nrs): Peripheral IV Central line still needed: No Urinary Cath still in place: No Assessment/Plan Hospital Course S/p recurrent thoracentesis with re-occultation of fluid. By calculating pat ient's preoperative risk the patient is in mild to moderate cardiac risk category. Due to of multiple vertebral fractures handling of the patient's body on the operative table must be extremely careful. Extra dose of Lasix will be given now to diurese the patient which looks slightly more congested comparing with the yesterday's white having anasarca. No contraindications to surgery. Assessment/Plan S/p recurrent thoracentesis with re-occultation of fluid. By calculating patient's preoperative risk the patient is in mild to moderate cardiac risk category. Due to of multiple vertebral fractures handling of the patient's body on the operative table must be extremely careful. Extra dose of Lasix will be given now to diurese the patient which looks slightly more congested comparing with the yesterday's white having anasarca. No contraindications to surgery. Assessment/Plan 1. PRIMARY ADENOCARCINOMA of the left breast. MULTIPLE BONY METS, PULMONARY METS;LIVER METS CHEMO ON HOLD; PT HAS A VERY GOOD RESPONSE TO CHEMO AND AI 2. Severe pain in the interscapular and lumbar sacral area most probably metastatic lesion possible femoral fracture. pathologic fracture of T9 with 60% of loss of height. Neurosurgical f/u. 3. Obesity. 4. Weight loss 60 pounds during the last 2 years by diet 5. PMS. 6. Myopia. 7. Anemia chronic disease with a drop of her hematocrit to 27 and regaining to 30 without any measures. Latest results 28. Protonix was added. Will recheck tomorrow;Leukopenia.Thrombocytopenia; 8. Anxiety disorder. Claustrophobia. Increase Ativan to 1 mg every 8 as needed at Lexapro 10 mg daily. 9. Posttraumatic stress disorder. 10. Pain in the left forearm with a history of fracture of ulna and radius. 11. Tachycardia 12. Hypoxemia at night marginal improved after 2 L of nasal cannula oxygen. 13. Deconditioning 14. 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 MRI: 09/28/18:diffuse osseous metastatic disease with multiple pathologic compression fractures at least involving the T4, T5, T7, T9 and T11 levels. There is likely mild cortical breakthrough at several levels resulting in mild central canal narrowing. No gross evidence of cord compression is seen.. 15. Pain syndrome. Today the most painful zone is in the right hip area. 16. Hyponatremia-corrected; hypokalemia after massive diuresis- corrected.Recheck and sodium chloride daily with the dose to 4 mg today 17. Leucopenia-improved. 18. Neutropenia with occasional fever and chills. Last chemotherapy 5 days ago. 19. Hypoalbuminemia. 20.Right sided cp after catheter insertion and correction less discomfort. 21. Decreased edema both lower extremities with jrordoywana-gflurjreb-Viqncwia with Pleural and Pericardial effusion. 22.Swelling of the left forearm-persist. Now no erythema. 23.bilateral pleural effusions ; plan to perform tap tomorrow morning preferably from the right side. 24. Systolic over diastolic congestive heart failure with a right more than left lower extremity swelling with no DVT in latest venous Doppler. 25. Cellulitis of the left forearm with increased edema anteriorly. 26. Pathologic fracture of the right hip; planned right hip arthroplasty. Result Diagram: 09/30/18 1355 09/30/18 0232 Results 24hrs Laboratory Tests Test 09/30/18 13:55 White Blood Count 4.7 #L Red Blood Count 4.08 #L Hemoglobin 12.9 # Hematocrit 40.6 # Mean Corpuscular Volume 99.5 Mean Corpuscular Hemoglobin 31.6 Mean Corpuscular Hemoglobin Concent 31.8 L Red Cell Distribution Width 18.3 H Platelet Count 179 Mean Platelet Volume 9.1 Immature Granulocytes % 0.200 Neutrophils % 47.9 Lymphocytes % 34.6 Monocytes % 15.0 H Eosinophils % 0.6 Basophils % 1.7 Nucleated Red Blood Cells % 0.0 Immature Granulocytes # 0.010 Neutrophils # 2.3 Lymphocytes # 1.6 Monocytes # 0.7 Eosinophils # 0.0 Basophils # 0.1 Nucleated Red Blood Cells # 0.0 Subjective 24 Hr Interval Summary Free Text/Dictation Weakness. Dizziness when I get up. Shortness of breath. No fever and chills no nausea vomiting. Right hip pain and back pain worse while moving. In a resting condition pain is tolerable.Now in a radiology department started thoracentesis. Doing well.Sitting in the bed. Constitutional: improved, poor po; No no complaints, No chills, No diaphoresis, No disoriented, No febrile, No requiring IVF, No requiring O2, No other Eyes: No no complaints, No pain, No discharge, No redness, No visual change, No other ENT: No no complaints, No bleeding, No pain, No congestion, No discharge, No dysphagia, No sore throat, No other Respiratory: cough, shortness of breath; No no complaints, No pain, No pleuritic pain, No sputum, No wheezing, No other Cardiovascular: edema; No no complaints, No chest pain, No lightheadedness, No orthopenea, No palpitations, No paroxysmal nocturnal dyspnea, No other Gastrointestinal: constipation, decreased appetite, passing stool; No no complaints, No pain, No blood, No diarrhea, No flatus, No nausea, No vomiting, No other Genitourinary: dysuria; No no complaints, No bleeding, No discharge, No flank pain, No hematuria, No other Musculoskeletal: back pain, bone/joint pain, neck pain; No no complaints, No restricted range of motion, No swelling, No other Skin: No no complaints, No bruising, No erythema, No laceration, No pruritis, No rash, No skin lesions, No other Neurologic: No no complaints, No confusion, No dizziness, No focal-weakness, No headache, No syncope, No seizure, No other Exam/Review of Systems Exam Vitals Vital Signs Date Temp Pulse Resp B/P (MAP) Pulse Ox O2 O2 Flow FiO2 Time Delivery Rate 10/01/18 98.5 84 18 105/64 95 Room Air 02:30 (78) 09/27/18 2.0 21:15 Intake and Output 09/30/18 09/30/18 10/01/18 1515:00 23:00 07:00 IntakeIntake Total 500 ml 100 ml BalanceBalance 500 ml 100 ml Constitutional: alert, oriented, well developed, distress, frail Psych: anxiety; No no complaints, No nl mood/affect, No confusion, No depression, No suicidal, No other Head: normocephalic, atraumatic; No lacerations, No hematomas, No other Eyes: EOMI, nl lids, PERRL; No nl conjunctiva, No nl sclera, No icteric, No fundi, disc, No other ENMT: mucosa pink and moist; No nl external ears & nose, No nl lips & teeth, No nl nasal mucosa & septum, No intubated, No tympanic membranes, No other Neck: jvd, bruits, nuchal rigidity; No supple, No non-tender, No masses, No thyromegaly, No other Respiratory: clear to auscultation, diminished breath sounds (More prominent in the lower lung zones.); No normal air movement, No congested cough, No crackles/rales, No intercostal retraction, No labored breathing, No respirations, No tactile fremitus, No wheezing, No other Cardiovascular: nl pulses, edema (Right leg more swollen than left. Left upper extremity mainly distally from the elbow more prominent on the anterior aspect of the forearm.); No regular rate and rhythm, No bruits, No diastolic murmur, No gallop, No irregular rhythm, No jugular venous distention (JVD), No murmurs/extra sounds, No rub, No systolic murmur, No S3, No S4, No other Gastrointestinal: soft, nl liver, spleen, bowel sounds; No non-tender, No ascites, No distended, No firm, No hepatomegaly, No mass, No rebound or guarding, No splenomegaly, No surgical scars, No tender, No other Genitourinary - Female: nl adnexae, nl external genitalia; No CMT, No CVA tenderness, No uterus, No other Musculoskeletal: joint tenderness; No nl extremities to inspection, No nl gait and stance, No muscle tone, No muscle weakness, No range of motion, No spine non-tender, No swelling, No other Extremities: normal pulses, edema; No calf tenderness, No cyanosis, No clubbing, No pitting pedal edema, No palp able cord, No tenderness, No other 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: 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, numbness; No nl mental status, No nl speech, No nl strength, No confused, No DTR's symmetric, No focal weakness, No lethargic, No reflexes, No unresponsive, No other Skin: nl turgor (Anasarca less prominent than yesterday.); No rash or lesions, No diaphoresis, No ecchymosis, No laceration, No puncture, No other Lymph: No nl lymph nodes, No enlarged, No nontender, No other Results Results 24hrs Laboratory Tests Test 09/30/18 13:55 White Blood Count 4.7 #L Red Blood Count 4.08 #L Hemoglobin 12.9 # Hematocrit 40.6 # Mean Corpuscular Volume 99.5 Mean Corpuscular Hemoglobin 31.6 Mean Corpuscular Hemoglobin Concent 31.8 L Red Cell Distribution Width 18.3 H Platelet Count 179 Mean Platelet Volume 9.1 Immature Granulocytes % 0.200 Neutrophils % 47.9 Lymphocytes % 34.6 Monocytes % 15.0 H Eosinophils % 0.6 Basophils % 1.7 Nucleated Red Blood Cells % 0.0 Immature Granulocytes # 0.010 Neutrophils # 2.3 Lymphocytes # 1.6 Monocytes # 0.7 Eosinophils # 0.0 Basophils # 0.1 Nucleated Red Blood Cells # 0.0 Medications Medication Current Medications Acetaminophen (Tylenol Tab) 500 mg Q6H PRN PO MILD PAIN(1-3)OR ELEVATED TEMP Last administered on 09/20/18 22:55; Admin Dose 500 MG; Start 09/09/18 at 22:30 Anastrozole (Arimidex) 1 mg DAILY PO Last administered on 09/30/18 09:35; Admin Dose 1 MG; Start 09/10/18 at 09:00 Carvedilol (Coreg) 3.125 mg BID PO Last administered on 09/29/18 09:36; Admin Dose 3.125 MG; Start 09/09/18 at 22:30 Docusate Sodium (Colace) 200 mg BID PO Last administered on 09/30/18 21:04; Admin Dose 200 MG; Start 09/09/18 at 22:30 Escitalopram Oxalate (Lexapro) 10 mg DAILY PO Last administered on 09/30/18 09:34; Admin Dose 10 MG; Start 09/10/18 at 09:00 Ondansetron HCl (Zofran Tab) 4 mg Q6H PRN PO NAUSEA AND/OR VOMITING Last administered on 09/20/18 08:37; Admin Dose 4 MG; Start 09/09/18 at 22:30 Pantoprazole (Protonix Tab) 40 mg AC BREAKFAST PO Last administered on 09/30/18 08:26; Admin Dose 40 MG; Start 09/10/18 at 07:00 Polyethylene Glycol (Miralax) 17 gm BID PO Last administered on 09/30/18 21:04; Admin Dose 17 GM; Start 09/09/18 at 22:30 Spironolactone (Aldactone) 50 mg DAILY PO Last administered on 09/30/18 09:34; Admin Dose 50 MG; Start 09/13/18 at 18:00 Potassium Chloride (Klor-Con 20) 20 meq BID PO Last administered on 09/30/18 21:04; Admin Dose 20 MEQ; Start 09/15/18 at 21:00 Albuterol/ Ipratropium (Duoneb) 3 ml Q8H RESP THERAPY PRN HHN SHORTNESS OF BREATH Last administered on 09/15/18 16:09; Admin Dose 3 ML; Start 09/15/18 at 14:30 Ondansetron HCl (Zofran Inj) 4 mg Q6H PRN IV NAUSEA AND/OR VOMITING Last administered on 09/28/18 18:43; Admin Dose 4 MG; Start 09/15/18 at 14:30 Oxycodone HCl (Oxycontin) 20 mg Q12 PO Last administered on 09/30/18 21:05; Admin Dose 20 MG; Start 09/15/18 at 21:00 Olopatadine HCl (Patanol 0.1% Oph) 1 drop BID BOTH EYES Last administered on 09/30/18 21:04; Admin Dose 1 DROP; Start 09/16/18 at 21:00 Loratadine (Claritin) 10 mg DAILY PO Last administered on 09/30/18 09:35; Admin Dose 10 MG; Start 09/17/18 at 09:00 Acetaminophen/ Hydrocodone Bitart ([place] (5/325)) 1 tab Q8 PRN PO PAIN LEVEL 7- 10 Last administered on 09/29/18 23:06; Admin Dose 1 TAB; Start 09/24/18 at 08:00 Lidocaine (Lidoderm) 2 patch DAILY TD Last administered on 09/30/18 09:32; Admin Dose 2 PATCH; Start 09/26/18 at 17:30 Furosemide (Lasix) 20 mg DAILY PO Last administered on 09/29/18 09:40; Admin Dose 20 MG; Start 09/29/18 at 09:00 Sodium Chloride (Nacl) 2 gm DAILY PO ; Start 10/01/18 at 09:00 Albumin Human 100 ml @ 100 mls/hr Q8H IV Last administered on 10/01/18at 04:32; Admin Dose 100 MLS/HR; Start 09/30/18 at 19:30; Stop 10/01/18 at 12:29 RUSS JEROME MD Oct 01, 2018 08:35
[2018-10-01] MEDS ORDERED: LIDOCAINE 1% (MPF) 5 ML VIAL ONE (08:59)
[2018-10-01] MEDS: LORATADINE 10 MG TAB PO SCH (09:00)
[2018-10-01] MEDS: oxyCODONE (CR) 10 MG TAB [oxyCONTIN] PO SCH ×2 (09:00→20:28)
[2018-10-01] MEDS: OLOPATADINE 0.1% 5 ML OPH BOTH EYES SCH ×2 (09:00→20:23)
[2018-10-01] MEDS: LIDOCAINE 5% PATCH TD SCH (09:00)
[2018-10-01] MEDS: SODIUM CHLORIDE 1 GM TAB PO SCH (09:00)
[2018-10-01] MEDS: DOCUSATE SODIUM 100 MG CAP PO SCH ×2 (09:00→20:23)
[2018-10-01] MEDS: ESCITALOPRAM 10 MG TAB PO SCH (09:00)
[2018-10-01] MEDS: FUROSEMIDE 20 MG TAB PO SCH (09:00)
[2018-10-01] MEDS: SPIRONOLACTONE 50 MG TAB PO SCH (09:00)
[2018-10-01] MEDS: ANASTROZOLE 1 MG TAB PO SCH (09:00)
[2018-10-01] MEDS: POLYETHYLENE GLYCOL 17 GM PACKET PO SCH ×2 (09:00→20:24)
[2018-10-01] MEDS: POTASSIUM CHLORIDE (SR) 20 MEQ TAB PO SCH ×2 (09:00→20:23)
[2018-10-01] MEDS ORDERED: ALBUMIN HUMAN 25% 100 ML IV ONE (09:00)
--- NOTE | 2018-10-01 09:43 | CONS ---
Consultation Date/Type/Reason Admit Date/Time Sep 09, 2018 at 14:53 Initial Consult Date 09/09/18 Type of Consult Cardiology Requesting Provider: RUSS JEROME MD Date/Time of Note DATE: 10/01/18 TIME: 09:43 24 HR Interval Summary Free Text/Dictation Pt in radiology for thoracocentesis - VS stable Exam/Review of Systems Vital Signs Vitals Vital Signs Date Temp Pulse Resp B/P (MAP) Pulse Ox O2 O2 Flow FiO2 Time Delivery Rate 10/01/18 95 18 108/78 94 Room Air 08:40 (88) 10/01/18 2.0 08:00 10/01/18 98.5 02:30 Intake and Output 09/30/18 09/30/18 10/01/18 1515:00 23:00 07:00 IntakeIntake Total 500 ml 100 ml BalanceBalance 500 ml 100 ml Labs Result Diagram: 09/30/18 1355 09/30/18 0232 Results 24hrs Laboratory Tests Test 09/30/18 13:55 White Blood Count 4.7 #L Red Blood Count 4.08 #L Hemoglobin 12.9 # Hematocrit 40.6 # Mean Corpuscular Volume 99.5 Mean Corpuscular Hemoglobin 31.6 Mean Corpuscular Hemoglobin Concent 31.8 L Red Cell Distribution Width 18.3 H Platelet Count 179 Mean Platelet Volume 9.1 Immature Granulocytes % 0.200 Neutrophils % 47.9 Lymphocytes % 34.6 Monocytes % 15.0 H Eosinophils % 0.6 Basophils % 1.7 Nucleated Red Blood Cells % 0.0 Immature Granulocytes # 0.010 Neutrophils # 2.3 Lymphocytes # 1.6 Monocytes # 0.7 Eosinophils # 0.0 Basophils # 0.1 Nucleated Red Blood Cells # 0.0 Medications Medications Current Medications Acetaminophen (Tylenol Tab) 500 mg Q6H PRN PO MILD PAIN(1-3)OR ELEVATED TEMP Last administered on 09/20/18at 22:55; Admin Dose 500 MG; Start 09/09/18 at 22:30 Anastrozole (Arimidex) 1 mg DAILY PO Last administered on 09/30/18at 09:35; Admin Dose 1 MG; Start 09/10/18 at 09:00 Carvedilol (Coreg) 3.125 mg BID PO Last administered on 09/29/18at 09:36; Admin Dose 3.125 MG; Start 09/09/18 at 22:30 Docusate Sodium (Colace) 200 mg BID PO Last administered on 09/30/18 21:04; Admin Dose 200 MG; Start 09/09/18 at 22:30 Escitalopram Oxalate (Lexapro) 10 mg DAILY PO Last administered on 09/30/18 09:34; Admin Dose 10 MG; Start 09/10/18 at 09:00 Ondansetron HCl (Zofran Tab) 4 mg Q6H PRN PO NAUSEA AND/OR VOMITING Last administered on 09/20/18 08:37; Admin Dose 4 MG; Start 09/09/18 at 22:30 Pantoprazole (Protonix Tab) 40 mg AC BREAKFAST PO Last administered on 09/30/18 08:26; Admin Dose 40 MG; Start 09/10/18 at 07:00 Polyethylene Glycol (Miralax) 17 gm BID PO Last administered on 09/30/18 21:04; Admin Dose 17 GM; Start 09/09/18 at 22:30 Spironolactone (Aldactone) 50 mg DAILY PO Last administered on 09/30/18 09:34; Admin Dose 50 MG; Start 09/13/18 at 18:00 Potassium Chloride (Klor-Con 20) 20 meq BID PO Last administered on 09/30/18 21:04; Admin Dose 20 MEQ; Start 09/15/18 at 21:00 Albuterol/ Ipratropium (Duoneb) 3 ml Q8H RESP THERAPY PRN HHN SHORTNESS OF BREATH Last administered on 09/15/18 16:09; Admin Dose 3 ML; Start 09/15/18 at 14:30 Ondansetron HCl (Zofran Inj) 4 mg Q6H PRN IV NAUSEA AND/OR VOMITING Last administered on 09/28/18 18:43; Admin Dose 4 MG; Start 09/15/18 at 14:30 Oxycodone HCl (Oxycontin) 20 mg Q12 PO Last administered on 09/30/18 21:05; Admin Dose 20 MG; Start 09/15/18 at 21:00 Olopatadine HCl (Patanol 0.1% Oph) 1 drop BID BOTH EYES Last administered on 09/30/18 21:04; Admin Dose 1 DROP; Start 09/16/18 at 21:00 Loratadine (Claritin) 10 mg DAILY PO Last administered on 09/30/18 09:35; Admin Dose 10 MG; Start 09/17/18 at 09:00 Acetaminophen/ Hydrocodone Bitart ([place] (5/325)) 1 tab Q8 PRN PO PAIN LEVEL 7- 10 Last administered on 09/29/18at 23:06; Admin Dose 1 TAB; Start 09/24/18 at 08:00 Lidocaine (Lidoderm) 2 patch DAILY TD Last administered on 09/30/18at 09:32; Admin Dose 2 PATCH; Start 09/26/18 at 17:30 Furosemide (Lasix) 20 mg DAILY PO Last administered on 09/29/18 09:40; Admin Dose 20 MG; Start 09/29/18 at 09:00 Sodium Chloride (Nacl) 2 gm DAILY PO ; Start 10/01/18 at 09:00 Albumin Human 100 ml @ 100 mls/hr Q8H IV Last administered on 10/01/18at 04:32; Admin Dose 100 MLS/HR; Start 09/30/18 at 19:30; Stop 10/01/18 at 12:29 Albumin Human 100 ml @ 100 mls/hr ONCE ONCE IV ; Start 10/01/18 at 09:00; Stop 10/01/18 at 09:59 EMILY NELSON MD Oct 01, 2018 09:43
--- NOTE | 2018-10-01 12:58 | PREAC ---
Date/Time of Note Date/Time of Note DATE: 10/01/18 TIME: 12:53 Anesthesia Eval and Record Evaluation Time Pre-Procedure Interview DATE: 10/01/18 TIME: 12:53 Age 58 Sex female NPO: 8 hrs Preoperative diagnosis Right Hip Pathologic Fracture Planned procedure Right Hip Hemiarthroplasty Past Medical History Past Medical History: Includes Cardio: HTN, CHF, Other (Percardial Effusion, EF 60% ) Pulm: Other (Bilateral Pleural Effusion Moderate) GI: Obesity Heme: Thrombocytopenia Psych: Anxiety, Other (Claustrophobia, PTSD disorder) Surgery & Anesthesia Issues No known issue Meds Anticoagulation: No Beta Alana within 24 hr: Yes Reason Beta Alana not given: Pt. not on B-Alana Reported Medications Potassium Chloride* (Potassium Chloride*) 20 Meq Tablet.er, 20 MEQ PO DAILY, TAB.SA 09/09/18 Epoetin Cr (Procrit) 4,000 Unit/1 Ml Vial, 4000 UNIT IJ Q FRI, VIAL 7:00AM-7:00PM,HOLD IF HGB>10 09/09/18 Ondansetron Hcl* (Zofran*) 4 Mg Tab, 4 MG PO Q6H PRN for NAUSEA AND OR VOMITING, TAB 08/22/18 Pantoprazole* (Pantoprazole*) 40 Mg Tablet.dr, 40 MG PO AC BREAKFAST, TAB 08/22/18 Oxycodone Hcl* (Oxycontin*) 20 Mg Tab.er.12h, 20 MG PO Q12, TAB 08/22/18 Amlodipine Besylate* (Norvasc*) 5 Mg Tablet, 5 MG PO BID, TAB HOLD FOR SBP <110. 08/22/18 Polyethylene Glycol* (Miralax*) 17 Gm Powd.pack, 17 GM PO BID, #60 PACKET ON -12:00 TO 4:00PM 08/22/18 Magnesium Hydroxide* (Milk Of Magnesia*) 400 Mg/5 Ml Oral.susp, 30 ML PO DAILY, ML 08/22/18 Escitalopram Oxalate* (Lexapro*) 10 Mg Tablet, 10 MG PO DAILY, #30 TAB 08/22/18 Furosemide* (Furosemide*) 20 Mg Tablet, 20 MG PO DAILY, #60 TAB HOLD FOR SBP <110. 08/22/18 Docusate Sodium* (Colace*) 100 Mg Capsule, 200 MG PO BID, #60 CAP 08/22/18 Carvedilol* (Carvedilol*) 3.125 Mg Tablet, 3.125 MG PO BID, #60 TAB HOLD FOR SBP <110 OR NC <60. GIVE WITH FOOD. 08/22/18 Lactose-Free Food (Boost High Protein) 237 Ml Liquid, 120 ML PO BID 08/22/18 Benazepril Hcl* (Benazepril Hcl*) 5 Mg Tablet, 5 MG PO BID, #60 TAB HOLD FOR SBP <110. 08/22/18 Anastrozole* (Arimidex*) 1 Mg Tablet, 1 MG PO DAILY, #30 TAB 08/22/18 Acetaminophen* (Acetaminophen*) 500 MG Extra Strength Tablet, 500 MG PO Q6H PRN for PAIN AND OR ELEVATED TEMP, TAB 08/22/18 Current Medications Acetaminophen (Tylenol Tab) 500 mg Q6H PRN PO MILD PAIN(1-3)OR ELEVATED TEMP Last administered on 09/20/18 22:55; Admin Dose 500 MG; Start 09/09/18 at 22:30 Anastrozole (Arimidex) 1 mg DAILY PO Last administered on 09/30/18 09:35; Admin Dose 1 MG; Start 09/10/18 at 09:00 Carvedilol (Coreg) 3.125 mg BID PO Last administered on 09/29/18 09:36; Admin Dose 3.125 MG; Start 09/09/18 at 22:30 Docusate Sodium (Colace) 200 mg BID PO Last administered on 09/30/18 21:04; Admin Dose 200 MG; Start 09/09/18 at 22:30 Escitalopram Oxalate (Lexapro) 10 mg DAILY PO Last administered on 09/30/18 09:34; Admin Dose 10 MG; Start 09/10/18 at 09:00 Ondansetron HCl (Zofran Tab) 4 mg Q6H PRN PO NAUSEA AND/OR VOMITING Last administered on 09/20/18 08:37; Admin Dose 4 MG; Start 09/09/18 at 22:30 Pantoprazole (Protonix Tab) 40 mg AC BREAKFAST PO Last administered on 09/30/18 08:26; Admin Dose 40 MG; Start 09/10/18 at 07:00 Polyethylene Glycol (Miralax) 17 gm BID PO Last administered on 09/30/18 21:04; Admin Dose 17 GM; Start 09/09/18 at 22:30 Spironolactone (Aldactone) 50 mg DAILY PO Last administered on 09/30/18 09:34; Admin Dose 50 MG; Start 09/13/18 at 18:00 Potassium Chloride (Klor-Con 20) 20 meq BID PO Last administered on 09/30/18 21:04; Admin Dose 20 MEQ; Start 09/15/18 at 21:00 Albuterol/ Ipratropium (Duoneb) 3 ml Q8H RESP THERAPY PRN HHN SHORTNESS OF BREATH Last administered on 09/15/18 16:09; Admin Dose 3 ML; Start 09/15/18 at 14:30 Ondansetron HCl (Zofran Inj) 4 mg Q6H PRN IV NAUSEA AND/OR VOMITING Last administered on 09/28/18 18:43; Admin Dose 4 MG; Start 09/15/18 at 14:30 Oxycodone HCl (Oxycontin) 20 mg Q12 PO Last administered on 09/30/18 21:05; Admin Dose 20 MG; Start 09/15/18 at 21:00 Olopatadine HCl (Patanol 0.1% Oph) 1 drop BID BOTH EYES Last administered on 09/30/18 21:04; Admin Dose 1 DROP; Start 09/16/18 at 21:00 Loratadine (Claritin) 10 mg DAILY PO Last administered on 09/30/18 09:35; Admin Dose 10 MG; Start 09/17/18 at 09:00 Acetaminophen/ Hydrocodone Bitart ([place] (5/325)) 1 tab Q8 PRN PO PAIN LEVEL 7- 10 Last administered on 09/29/18 23:06; Admin Dose 1 TAB; Start 09/24/18 at 08:00 Lidocaine (Lidoderm) 2 patch DAILY TD Last administered on 09/30/18 09:32; Admin Dose 2 PATCH; Start 09/26/18 at 17:30 Furosemide (Lasix) 20 mg DAILY PO Last administered on 09/29/18 09:40; Admin Dose 20 MG; Start 09/29/18 at 09:00 Sodium Chloride (Nacl) 2 gm DAILY PO ; Start 10/01/18 at 09:00 Meds reviewed: Yes Allergies Coded Allergies: No Known Allergy (Unverified , 09/09/18) Allergies Reviewed: Yes Labs/Studies Labs Reviewed: Reviewed by anesthesiologist Result Diagram: 09/30/18 1355 09/30/18 0232 Laboratory Tests 09/30/18 13:55 test: N/A Studies: ECG (NSR), CXR (Bialteral Pleural Effusion, ) Pre-procedure Exam Last vitals Vital Signs Date Temp Pulse Resp B/P (MAP) Pulse Ox O2 O2 Flow FiO2 Time Delivery Rate 10/01/18 98.1 83 17 115/62 92 Room Air 11:57 (79) 10/01/18 2.0 08:00 Airway: Adequate mouth opening, Adequate thyromental dist Mallampati: Mallampati II Teeth: Normal Lung: Abnormal (Low BS bilaterally over edilia base of both lings) Heart: Normal ASA Physical Status ASA physical status: 3 Emergency: None Planned Anesthetic General/MAC: Mask, ETT, LMA Neuraxial: Spinal Nerve block: Other (Rgith FAscia Iliaca Block) Planned Pain Management Sub-arachniod narcotics, Single shot nerve block, Parenteral pain med Pre-operative Attestations Prior to commencing anesthesia and surgery, the patient was re-evaluated, there was verification of: *The patient's identity *The results of appropriate recent lab work and preoperative vital signs *The above evaluation not changing prior to induction *Anesthetic plan, risk benefits, alternative and complications discussed with patient/family; questions answered; patient/family understands, accepts and wishes to proceed. GOLDY MELCHOR MD Oct 01, 2018 12:58
[2018-10-01] MEDS ORDERED: MIDAZOLAM 1 MG/ML 2 ML INJ ONE ×2 (13:01)
[2018-10-01] MEDS ORDERED: PROPOFOL 100 ML ONE (13:01)
[2018-10-01] MEDS ORDERED: CEFAZOLIN 1 GM INJ ONE (13:01)
[2018-10-01] MEDS ORDERED: ROPIVACAINE 0.2% 20 ML VIAL ONE (13:02)
[2018-10-01] MEDS ORDERED: morphine SULFATE/PF (10 MG/10 ML) INJ ONE (13:02)
--- NOTE | 2018-10-01 13:25 | HPN ---
Date/Time of Note Date/Time of Note DATE: 10/01/18 TIME: 13:24 Interval H&P Admission Note Pt. seen H&P reviewed: No system changes DRISS CORDOVA MD Oct 01, 2018 13:25
[2018-10-01] MEDS ORDERED: PHENYLephrine 10 MG INJ ONE (14:03)
[2018-10-01] MEDS ORDERED: ALBUMIN HUMAN 5% 500 ML ONE (14:16)
[2018-10-01] MEDS ORDERED: POLYMYXIN/BACITRACIN 1L IRRIG IRR ONE (14:26)
--- NOTE | 2018-10-01 14:36 | PN ---
DATE: 10/01/2018 SUBJECTIVE: The patient is stable, no events overnight. No fevers, chills, nausea, vomiting. OBJECTIVE: VITAL SIGNS: Blood pressure is 105/64, respiration 18, pulse 84, temperature 98.5. HEENT: Head is normocephalic. NECK: Supple. HEART: Regular rate. LUNGS: Show diminished breath sounds at the base. ABDOMEN: Soft, nontender to palpation without rebound or guarding. EXTREMITIES: Negative for clubbing, cyanosis, no edema. DERMATOLOGIC: No rashes. MUSCULOSKELETAL: No joint effusion. NEUROLOGIC: No change in exam. MEDICATIONS: Have been reviewed. LABORATORY DATA: Has been reviewed. ASSESSMENT AND PLAN: 1. Acute hyponatremia, etiology is multifactorial secondary to hemodynamics, questionable congestive heart failure. The patient's sodium levels have improved with diuretic therapy. Continue to monito r. 2. Volume overload. Etiology is possibly multifactorial secondary to congestive heart failure, thir d spacing. Continue to adjust diuretic therapy, monitor electrolytes and renal function closely. 3. Hypokalemia. Continue to monitor and replete. 4. Alkalosis. Continue to monitor. 5. Acute respiratory failure secondary to congestive heart failure, improving. 6. Left breast cancer with metastasis. Continue medical management. 7. Right hip fracture. The patient is pending arthroplasty. 8. Anemia. Patient is status post blood transfusion. 9. Thrombocytopenia. Continue to monitor. 10. Chronic pain syndrome. Continue current pain regimen. Dictated By: ANDRÉS YO/NTS Conf#: [id number] DID#: [id number] CC: RUSS JEROME MD;*EndCC*
[2018-10-01] MEDS ORDERED: DEXAMETHASONE 4 MG/ML 5 ML INJ ONE (14:40)
[2018-10-01] MEDS ORDERED: ONDANSETRON 4 MG INJ ONE (14:40)
[2018-10-01] MEDS ORDERED: METOCLOPRAMIDE 10 MG INJ ONE (14:40)
[2018-10-01] MEDS ORDERED: KETOROLAC 30 MG INJ ONE (14:41)
[2018-10-01] MEDS ORDERED: VANCOMYCIN 1 GM INJ ONE (15:18)
--- NOTE | 2018-10-01 16:16 | PAC ---
Date/Time of Note Date/Time of Note DATE: 10/01/18 TIME: 16:15 Post-Anesthesia Notes Post-Anesthesia Note Last documented vital signs Vital Signs Date Temp Pulse Resp B/P (MAP) Pulse Ox O2 O2 Flow FiO2 Time Delivery Rate 10/01/18 98.2 83 17 115/62 92 Room Air 16:17 (79) 10/01/18 2.0 08:00 Activity: WNL Respiratory function: WNL Cardiovascular function: WNL Mental status: Baseline Pain reasonably controlled: Yes Hydration appropriate: Yes Nausea/Vomiting absent: Yes GOLDY MELCHOR MD Oct 01, 2018 16:16
[2018-10-01] MEDS ORDERED: HYDROmorphONE 1 MG/5 ML IV SYRINGE IV PRN ×2 (16:30)
[2018-10-01] MEDS ORDERED: FENTAnyl 50 MCG/ML VIAL IV PRN ×3 (16:30)
[2018-10-01] MEDS ORDERED: NALOXONE (0.4 MG/ML) INJ IV PRN (16:30)
[2018-10-01] MEDS ORDERED: METOCLOPRAMIDE 10 MG INJ IV PRN (16:30)
[2018-10-01] MEDS ORDERED: morphine 2 MG INJ IV PRN ×2 (16:30)
[2018-10-01] MEDS ORDERED: ONDANSETRON 4 MG INJ IV PRN ×2 (16:30)
[2018-10-01] MEDS ORDERED: NALBUPHINE HCL (10 MG/1 ML) INJ IV PRN (16:30)
[2018-10-01] MEDS ORDERED: HYDROCODONE/APAP (5/325) TAB PO PRN ×2 (16:30)
[2018-10-01] MEDS ORDERED: ACETAMINOPHEN 500 MG TAB PO PRN ×2 (16:30→17:00)
[2018-10-01] MEDS ORDERED: LABETALOL HCL 20MG INJ IV PRN (16:30)
[2018-10-01] MEDS ORDERED: EPHEDrine SULFATE 50 MG/5 ML SYG IV PRN (16:30)
[2018-10-01] MEDS ORDERED: DIPHENHYDRAMINE 50 MG INJ IV PRN ×3 (16:30→17:00)
[2018-10-01] MEDS ORDERED: MEPERIDINE 25 MG INJ IV PRN (16:30)
[2018-10-01] MEDS ORDERED: OXYCODONE/ACETAMINOPHEN (5/325) TAB PO PRN (16:30)
[2018-10-01] MEDS ORDERED: NACL 0.9% 3 ML SYG IV SCH (16:30)
[2018-10-01] MEDS ORDERED: hydrALAzine 20 MG INJ IV PRN (16:30)
[2018-10-01] MEDS ORDERED: HYDROmorphONE 0.5 MG/0.5 ML SYG IV PRN ×2 (16:30→17:00)
[2018-10-01] MEDS: CEFAZOLIN 2 GM/50 ML (PMX) 50 ML IVPB SCH (17:31)
--- NOTE | 2018-10-01 19:05 | SIPON ---
Date/Time of Note Date/Time of Note DATE: 10/01/18 TIME: 18:59 Operative Report Preoperative Diagnosis pathologicfracture of femoral neck of right hip Postoperative Diagnosis same Operation/Procedure Performed hemiarthroplasty of right hip Surgeon see signature line patient support assistant none Anesthesia: general Estimated blood loss: other Transfusion Required none Specimen femoral head Grafts/Implants bipolar femoral head prosthesis Complications none DRISS CORDOVA MD Oct 01, 2018 19:05
--- NOTE | 2018-10-01 19:44 | OPR ---
DATE OF OPERATION: 10/01/2018 PREOPERATIVE DIAGNOSIS: Pathologic subcapital fracture of the right femur. POSTOPERATIVE DIAGNOSIS: Pathologic subcapital fracture of the right femur. OPERATION PERFORMED: Hemiarthroplasty of the right hip. ANESTHESIA: General anesthesia. SURGEON: Alma Shane M.D. PROCEDURE AND FINDINGS: Under general anesthesia, the patient was placed in left decubitus position with the right side up. Usual prep and drape was done exposing the right hip and right lower extremi ty. Right hip was approached through the usual posterolateral oblique incision. After splitting gluteal muscles, the hip joint was identified and was opened. On opening the hip joint, the minimally displa sheldon subcapital fracture of the femoral neck was identified. The head was removed and a measurement r evealed that the size of the head is about 49 mm. After cleaning acetabular cavity, trial reduction was carried out using various size. A trial bipolar head and 50 mm bipolar cup was probed providing best fit. After packing of the acetabular cavity, attention was then directed to the proximal femur. Following initial preparation with box osteotome and canal finders. Further preparation was mike d out using increasing size of the broaches. With the size 6 broach in, a trial components were asse mbled and the joint was reduced. After several trial, I got the impression that a size 7 stem in a s tandard setting, combined with the -4 neck, 50 mm bipolar cup was providing best fit. With the angela rable leg length. After removing all the trial components, actual stem in the size 6 in a standard s etting was pounded in and this was connected to -4 neck with 50 mm bipolar cup. The hip joint was re duced and the fitting was satisfactory and the range of motion was satisfactory and stable and the le g length was comparable. After irrigation and hemostasis, the capsule of the hip joint was closed wi th #1 PDS sutures. Further closure was carried out with #2 Vicryl for muscle and fascia and 0 Vicryl for subq felt his subcutaneous tissues. Final closure was carried out with skin alexandr. Proper st erile pressure dressings were applied. The patient tolerated the entire procedure very well and was sent to the recovery room in excellent c ondition. Dictated By: ALMA AKINS/KEANU Conf#: [id number] DID#: [id number] CC: RUSS JEROME MD;*End*
[2018-10-01] MEDS: SOD CHLORIDE 0.9% 1,000 ML IV SCH (20:22)
--- NOTE | 2018-10-01 21:53 | CONS ---
Assessment/Plan Assessment/Plan Hospital Course (Demo Recall) METASTATIC BREAST CANCER WITH PRIMARY ADENOCARCINOMA IN the left breast. MULTIPLE BONY METS, PULMONARY METS, LIVER METS CHEMO ON HOLD PT HAS A VERY GOOD RESPONSE TO CHEMO AND AI CONT AI FOR NOW CT ABD FOR RESTAGING 08.27.18- noted , stable CT CHEST- STABLE/IMPROVING 1. Moderate bilateral pleural effusions with adjacent lung base consolidation/atelectasis. 2. Moderate pericardial effusion. 3. Decreased size of previously prominent mediastinal lymph nodes. Decreased size of sub centimeter axillary lymph nodes. 4. Stable nonspecific pulmonary nodules as described above. 5. Stable soft tissue nodule of the anterior left chest wall/breast. 6. Redemonstrated diffuse sclerotic metastatic osseous lesions with stable compression deformities of the thoracic spine. 7. Nodular contour of the liver with multiple hypoattenuating masses, grossly similar to prior exam. CYTOLOGY-NEG CARD - TO MONITOR FOR PERICARDIAL TAMPONADE, FOR NOW NO NEED TO DO PERICARDIOCENTESIS R HIP PAIN MRI R HIP- nondisplaced pathological fracture of the right femoral head merging with the known metastatic lesion. Interval development of synovitis and a large joint effusion as well as psoas bursitis. CT PELVIS- Subacute to chronic pathologic subcapital fracture of the right femoral neck. ORTHO -Hemiarthroplasty of the right hip as soon as she can be medically cleared for surgery. PT CLEARED FROM MY POINT TO OR today for ORIF of R femoral neck fracture CONT PAIN CONTROL Leucopenia- post chemo NEUPOGEN- DC monitor closely post Neutropenia with occasional fever and chills. Anemia chronic disease SOB PLEURAL EFFUSIONS post thoracentesis cytology -NEG ON 09.18.18 Fluid overload diuretic cardiology F-UP Congestive heart failure exacerbation, diastolic by most recent echo, acute on chronic.-neg trop x 3. Echo this admit EF 60/small pericardia effusion Hypotension, currently borderline-overall improved Anasarca. Severe pain in the interscapular and lumbar sacral area most probably metastatic lesion possible femoral fracture. pathologic fracture of T9 with 60% of loss of height. Obesity. Weight loss 60 pounds during the last 2 years PMS. Myopia. Anxiety disorder. Claustrophobia. Posttraumatic stress disorder. Pain in the left forearm with a history of fracture of ulna and radius. Tachycardia Hypoxemia at night marginal improved after 2 L of nasal cannula oxygen. Deconditioning Pain syndrome. Today the most painful zone is in the right hip area. X-ray did not show any fractures. Hyponatremia- resolved Hypoalbuminemia Right sided cp after catheter insertion and correction less discom fort. Decreased edema both lower extremities with hypotension-improving Swelling of the left forearm-persist. Consultation Date/Type/Reason Admit Date/Time Sep 09, 2018 at 14:53 Initial Consult Date 09/09/[address] [facility] Requesting Provider: RUSS JEROME MD Date/Time of Note DATE: 10/01/18 TIME: 21:49 24 HR Interval Summary Free Text/Dictation all noted seen before surgery in am + r hip pain Exam/Review of Systems Exam Vitals Vital Signs Date Temp Pulse Resp B/P (MAP) Pulse Ox O2 O2 Flow FiO2 Time Delivery Rate 10/01/18 97.5 88 18 100/60 96 Nasal 2.0 19:44 (73) Cannula Intake and Output 09/30/18 09/30/18 10/01/18 1515:00 23:00 07:00 IntakeIntake Total 500 ml 100 ml BalanceBalance 500 ml 100 ml Exam Constitutional: alert, oriented, well developed, distress, frail Psych: anxiety, depression; No no complaints, No nl mood/affect, No confusion, No suicidal, No other Head: normocephalic, atraumatic Eyes: EOMI, nl lids; No nl conjunctiva, No nl sclera, No PERRL, No icteric, No fundi, disc, No other ENMT: No nl external ears & nose, No nl lips & teeth, No nl nasal mucosa & septum, No mucosa pink and moist, No intubated, No tympanic membranes, No other Neck: supple, jvd, bruits; No non-tender, No masses, No thyromegaly, No nuchal rigidity, No other Respiratory: congested cough, diminished breath sounds (Left more prominent than the right side.); No clear to auscultation, No normal air movement, No crackles/rales, No intercostal retraction, No labored breathing, No respirations, No tactile fremitus, No wheezing, No other Cardiovascular: No regular rate and rhythm, No nl pulses, No bruits, No diastolic murmur, No edema, No gallop, No irregular rhythm, No jugular venous distention (JVD), No murmurs/extra sounds, No rub, No systolic murmur, No S3, No S4, No other Gastrointestinal: soft, nl liver, spleen, distended Extremities: edema (Left upper extremity more prominent in the right.), LE BL Results Result Diagram: 10/01/18 1649 10/01/18 1624 Results 24hrs Laboratory Tests Test 10/01/18 16:24 10/01/18 16:49 Sodium Level 140 Potassium Level 4.3 Chloride Level 108 Carbon Dioxide Level 27 Anion Gap 5 Blood Urea Nitrogen 20 # Creatinine 0.62 Est Glomerular Filtrat Rate mL/min > 60 Glucose Level 98 Calcium Level 8.6 White Blood Count 3.3 #L Red Blood Count 2.68 #L Hemoglobin 8.7 #L Hematocrit 27.8 #L Mean Corpuscular Volume 103.7 H Mean Corpuscular Hemoglobin 32.5 Mean Corpuscular Hemoglobin Concent 31.3 L Red Cell Distribution Width 17.5 H Platelet Count 93 #L Mean Platelet Volume 8.6 Immature Granulocytes % 0.600 H Neutrophils % 74.0 Segmented Neutrophils % (Manual) 75 Band Neutrophils % (Manual) 3 Lymphocytes % 20.0 Lymphocytes % (Manual) 19 Monocytes % 4.2 Monocytes % (Manual) 2 Eosinophils % 0.6 Basophils % 0.6 Basophils % (Manual) 1 Nucleated Red Blood Cells % 0.0 Immature Granulocytes # 0.020 Neutrophils # 2.4 Neutrophils # (Manual) 2.5 Band Neutrophils # 0.0 Lymphocytes (Manual) 0.6 L Lymphocytes # 0.7 L Monocytes # 0.1 L Monocytes # (Manual) 0.0 L Eosinophils # 0.0 Basophils # 0.0 Basophils # (Manual) 0.0 Nucleated Red Blood Cells # 0.0 Platelet Estimate DECREASED Giant Platelets 2 H Poikilocytosis 1+ Anisocytosis 1+ Macrocytosis 1+ Ovalocytes 1+ Medications Medication Current Medications Acetaminophen (Tylenol Tab) 500 mg Q6H PRN PO MILD PAIN(1-3)OR ELEVATED TEMP Last administered on 09/20/18at 22:55; Admin Dose 500 MG; Start 09/09/18 at 22:30 Anastrozole (Arimidex) 1 mg DAILY PO Last administered on 09/30/18at 09:35; Admin Dose 1 MG; Start 09/10/18 at 09:00 Carvedilol (Coreg) 3.125 mg BID PO Last administered on 10/01/18 20:26; Admin Dose 3.125 MG; Start 09/09/18 at 22:30 Docusate Sodium (Colace) 200 mg BID PO Last administered on 10/01/18 20:23; Admin Dose 200 MG; Start 09/09/18 at 22:30 Escitalopram Oxalate (Lexapro) 10 mg DAILY PO Last administered on 09/30/18 09:34; Admin Dose 10 MG; Start 09/10/18 at 09:00 Ondansetron HCl (Zofran Tab) 4 mg Q6H PRN PO NAUSEA AND/OR VOMITING Last administered on 09/20/18 08:37; Admin Dose 4 MG; Start 09/09/18 at 22:30 Pantoprazole (Protonix Tab) 40 mg AC BREAKFAST PO Last administered on 09/30/18 08:26; Admin Dose 40 MG; Start 09/10/18 at 07:00 Polyethylene Glycol (Miralax) 17 gm BID PO Last administered on 09/30/18 21 :04; Admin Dose 17 GM; Start 09/09/18 at 22:30 Spironolactone (Aldactone) 50 mg DAILY PO Last administered on 09/30/18 09:34; Admin Dose 50 MG; Start 09/13/18 at 18:00 Potassium Chloride (Klor-Con 20) 20 meq BID PO Last administered on 10/01/18 20:23; Admin Dose 20 MEQ; Start 09/15/18 at 21:00 Albuterol/ Ipratropium (Duoneb) 3 ml Q8H RESP THERAPY PRN HHN SHORTNESS OF BREATH Last administered on 09/15/18 16:09; Admin Dose 3 ML; Start 09/15/18 at 14:30 Ondansetron HCl (Zofran Inj) 4 mg Q6H PRN IV NAUSEA AND/OR VOMITING Last administered on 09/28/18 18:43; Admin Dose 4 MG; Start 09/15/18 at 14:30 Oxycodone HCl (Oxycontin) 20 mg Q12 PO Last administered on 10/01/18 20:28; Admin Dose 20 MG; Start 09/15/18 at 21:00 Olopatadine HCl (Patanol 0.1% Oph) 1 drop BID BOTH EYES Last administered on 4/15/19at 21:04; Admin Dose 1 DROP; Start 09/16/18 at 21:00 Loratadine (Claritin) 10 mg DAILY PO Last administered on 09/30/18at 09:35; Admin Dose 10 MG; Start 09/17/18 at 09:00 Lidocaine (Lidoderm) 2 patch DAILY TD Last administered on 09/30/18 09:32; Admin Dose 2 PATCH; Start 09/26/18 at 17:30 Furosemide (Lasix) 20 mg DAILY PO Last administered on 09/29/18at 09:40; Admin Dose 20 MG; Start 09/29/18 at 09:00 Sodium Chloride (Nacl) 2 gm DAILY PO ; Start 10/01/18 at 09:00 Hydromorphone HCl (Dilaudid) 0.4 mg Q2H PRN IV .PAIN 6-10; Start 10/01/18 at 16:30 Nalbuphine HCl (Nubain) 10 mg Q4H PRN IV .PRURITUS; Start 10/01/18 at 16:30 Naloxone HCl (Narcan) 0.2 mg Q2M PRN IV .RESP RATE; Start 10/01/18 at 16:30 Miscellaneous Information (* Miscellaneous Pharmacy Order) DURAMORPH: 0.1 MG SPI ... GIVEN NEURAXIAL XX ; Start 10/01/18 at 16:30 Acetaminophen (Tylenol Tab) 500 mg Q4H PRN PO .PAIN 1-3; Start 10/01/18 at 17:00; Stop 10/02/18 at 16:59 Sodium Chloride 1,000 ml @ 80 mls/hr [id number] IV Last administered on 10/01/18at 20:22; Admin Dose 80 MLS/HR; Start 10/01/18 at 16:17 Cefazolin Sodium/ Dextrose 50 ml @ 100 mls/hr Q8H IVPB Last administered on 10/01/18at 17:31; Admin Dose 100 MLS/HR; Start 10/01/18 at 16:30; Stop 10/02/18 at 08:59 Simethicone (Mylicon) 80 mg TID PRN PO .GAS; Start 10/01/18 at 16:30 IV Flush (NS 3 ml) 3 ml per protocol IV ; Start 10/01/18 at 16:30 Enoxaparin Sodium (Lovenox) 40 mg DAILY SC ; Start 10/02/18 at 09:00 Morphine Sulfate (morphine) 3 mg Q3H PRN IV SEVERE PAIN LEVEL 7-10; Start 10/01/18 at 16:30 Acetaminophen/ Hydrocodone Bitart ([place] (5/325)) 1 tab Q3H PRN PO MODERATE PAIN LEVEL 4-6; Start 10/01/18 at 16:30 Diphenhydramine HCl (Benadryl) 25 mg Q4H PRN IV .PRURITUS; Start 10/01/18 at 17:00; Stop 10/02/18 at 16:59 Hydromorphone HCl (Dilaudid) 0.2 mg Q2H PRN IV .PAIN 1-5; Start 10/01/18 at 17:00; Stop 10/02/18 at 16:59 DES DUNAWAY MD Oct 01, 2018 21:53
[2018-10-01] MEDS: HYDROmorphONE 0.5 MG/0.5 ML SYG IV PRN (23:26)
[2018-10-02] MEDS: CEFAZOLIN 2 GM/50 ML (PMX) 50 ML IVPB SCH ×2 (00:40→08:10)
[2018-10-02 00:47] VITALS: BP 105/60; PULSE 82; RESP 18
[2018-10-02] MEDS: SOD CHLORIDE 0.9% 1,000 ML IV SCH ×2 (02:36→18:21)
[2018-10-02 08:00] VITALS: BP 87/52; PULSE 100; RESP 18
[2018-10-02] MEDS: ESCITALOPRAM 10 MG TAB PO SCH (08:13)
[2018-10-02] MEDS: DOCUSATE SODIUM 100 MG CAP PO SCH ×2 (08:13→22:31)
[2018-10-02] MEDS: PANTOPRAZOLE (EC) 40 MG TAB PO SCH (08:13)
[2018-10-02] MEDS: SODIUM CHLORIDE 1 GM TAB PO SCH (08:14)
[2018-10-02] MEDS: LORATADINE 10 MG TAB PO SCH (08:14)
[2018-10-02] MEDS: oxyCODONE (CR) 10 MG TAB [oxyCONTIN] PO SCH ×2 (08:15→22:31)
[2018-10-02] MEDS: POTASSIUM CHLORIDE (SR) 20 MEQ TAB PO SCH (08:17)
[2018-10-02] MEDS: FUROSEMIDE 20 MG TAB PO SCH (08:17)
[2018-10-02] MEDS: ANASTROZOLE 1 MG TAB PO SCH (08:20)
[2018-10-02] MEDS: SPIRONOLACTONE 50 MG TAB PO SCH (08:21)
[2018-10-02] MEDS: ENOXAPARIN 40 MG/0.4 ML SYG SC SCH (08:22)
[2018-10-02] MEDS: LIDOCAINE 5% PATCH TD SCH (08:22)
[2018-10-02] MEDS: POLYETHYLENE GLYCOL 17 GM PACKET PO SCH ×2 (08:23→21:00)
[2018-10-02] MEDS: OLOPATADINE 0.1% 5 ML OPH BOTH EYES SCH ×2 (08:24→21:00)
--- NOTE | 2018-10-02 08:38 | PN ---
Date/Time of Note Date/Time of Note DATE: 10/02/18 TIME: 08:28 Assessment/Plan VTE Prophylaxis Risk score (from Nsg)>0 risk: 3 SCD applied (from Nsg): Yes SCD contraindicated: low risk/ambulating Pharmacological prophylaxis: NA/contraindicated Pharm contraindication: low risk/ambulating Lines/Catheters IV Catheter Type (from Nrsg): Central Line Central line still needed: Yes Urinary Cath still in place: Yes Reason Cath still needed: other (indicate) (Postsurgical unable to get up.) Assessment/Plan Hospital Course S/p recurrent thoracentesis with re-occultation of fluid. By calculating pat ient's preoperative risk the patient is in mild to moderate cardiac risk category. Due to of multiple vertebral fractures handling of the patient's body on the operative table must be extremely careful. Extra dose of Lasix will be given now to diurese the patient which looks slightly more congested comparing with the yesterday's white having anasarca. No contraindications to surgery. Assessment/Plan Hemiarthroplasty of the right hip 10/01/[address] Shane. S/p recurrent thoracentesis with re-occultation of fluid. By calculating patient's preoperative risk the patient is in mild to moderate cardiac risk category. Due to of multiple vertebral fractures handling of the patient's body on the operative table must be extremely careful. Extra dose of Lasix will be given now to diurese the patient which looks slightly more congested comparing with the yesterday's white having anasarca. No contraindications to surgery. Assessment/Plan 1. PRIMARY ADENOCARCINOMA of the left breast. MULTIPLE BONY METS, PULMONARY METS;LIVER METS CHEMO ON HOLD; PT HAS A VERY GOOD RESPONSE TO CHEMO AND AI 2. Severe pain in the interscapular and lumbar sacral area most probably metastatic lesion possible femoral fracture. pathologic fracture of T9 with 60% of loss of height. Neurosurgical f/u. 3. Obesity. 4. Weight loss 60 pounds during the last 2 years by diet 5. PMS. 6. Myopia. 7. Anemia chronic disease with a drop of her hematocrit to 27; 1 units of packed RBC plan to transfuse. Latest results 28. Protonix was added. Will recheck tomorrow;Leukopenia.Thrombocytopenia; 8. Anxiety disorder. Claustrophobia. Increase Ativan to 1 mg every 8 as needed at Lexapro 10 mg daily. 9. Posttraumatic stress disorder. 10. Pain in the left forearm with a history of fracture of ulna and radius. 11. Tachycardia 12. Hypoxemia at night marginal improved after 2 L of nasal cannula oxygen. 13. Deconditioning 14. 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 MRI: 09/28/18:diffuse osseous metastatic disease with multiple pathologic compression fractures at least involving the T4, T5, T7, T9 and T11 levels. There is likely mild cortical breakthrough at several levels resulting in mild central canal narrowing. No gross evidence of cord compression is seen.. 15. Pain syndrome. Today the most painful zone is in the right hip area. 16. Hyponatremia-corrected; hypokalemia now hyperkalemic 5.2 hold potassium p.o. today and hold Aldactone today.Recheck and sodium chloride daily with the dose to 4 mg today 17. Leucopenia-improved. 18. Neutropenia with occasional fever and chills. Last chemotherapy 5 days ago. 19. Hypoalbuminemia. 20.Right sided cp after catheter insertion and correction less discomfort. 21. Decreased edema both lower extremities with [id number] with Pleural and Pericardial effusion. 22. 23.bilateral pleural effusions ; plan to perform tap tomorrow morning preferably from the right side. 24. Systolic over diastolic congestive heart failure with a right more than left lower extremity swelling with no DVT in latest venous Doppler. 25. Swelling of the left forearm-persist. Cellulitis of the left forearm with increased edema anteriorly.-Today it is less edematous 26. Pathologic fracture of the right hip; hemiarthroplasty of right hip . Result Diagram: 10/02/18 0425 10/02/18 0425 Results 24hrs Laboratory Tests Test 10/01/18 16:24 10/01/18 16:49 10/02/18 04:25 10/02/18 04:30 Sodium Level 140 136 Potassium Level 4.3 5.2 H Chloride Level 108 103 Carbon Dioxide Level 27 23 Anion Gap 5 10 # Blood Urea Nitrogen 20 # 28 H Creatinine 0.62 0.76 Est Glomerular > 60 > 60 Filtrat Rate mL/min Glucose Level 98 147 # Calcium Level 8.6 8.8 White Blood Count 3.3 #L 5.5 # Red Blood Count 2.68 #L 2.43 L Hemoglobin 8.7 #L 7.9 L Hematocrit 27.8 #L 25.0 L Mean Corpuscular 103.7 H 102.9 H Volume Mean Corpuscular 32.5 32.5 Hemoglobin Mean Corpuscular 31.3 L 31.6 L Hemoglobin Concent Red Cell 17.5 H 17.2 H Distribution Width Platelet Count 93 #L 135 #L Mean Platelet Volume 8.6 9.9 Immature 0.600 H 0.400 Granulocytes % Neutrophils % 74.0 78.1 H Segmented 75 Neutrophils % (Manual) Band Neutrophils % 3 (Manual) Lymphocytes % 20.0 11.2 L Lymphocytes % 19 (Manual) Monocytes % 4.2 10.1 Monocytes % (Manual) 2 Eosinophils % 0.6 0.0 Basophils % 0.6 0.2 Basophils % (Manual) 1 Nucleated Red Blood 0.0 0.0 Cells % Immature 0.020 0.020 Granulocytes # Neutrophils # 2.4 4.3 Neutrophils # 2.5 (Manual) Band Neutrophils # 0.0 Lymphocytes (Manual) 0.6 L Lymphocytes # 0.7 L 0.6 L Monocytes # 0.1 L 0.6 Monocytes # (Manual) 0.0 L Eosinophils # 0.0 0.0 Basophils # 0.0 0.0 Basophils # (Manual) 0.0 Nucleated Red Blood 0.0 0.0 Cells # Platelet Estimate DECREASED Giant Platelets 2 H Poikilocytosis 1+ Anisocytosis 1+ Macrocytosis 1+ Ovalocytes 1+ Phosphorus Level 6.6 H Magnesium Level 2.0 Urine Color YELLOW Urine Clarity TURBID A Urine pH 5.0 Urine Specific 1.027 [place] Urine Ketones 1+ H Urine Nitrite NEGATIVE Urine Bilirubin NEGATIVE Urine Urobilinogen NEGATIVE Urine Leukocyte 1+ H Esterase Urine Microscopic 21 H RBC Urine Microscopic 27 H WBC Urine Mucus FEW A Urine Hemoglobin NEGATIVE Urine Glucose NEGATIVE Urine Total Protein NEGATIVE Subjective 24 Hr Interval Summary Free Text/Dictation No complaints. Appreciative. Denies chest pain which she had after the thoracentesis yesterday. Denies shortness of breath. Less comfortable. No fever or chills no palpitations. Placed comfortable with [place]wick catheter. Subjective hx not possible: other (I never expected that they will have such pain to the surgery I do not believe that I underwent the surgery I have no pain.) Constitutional: improved, poor po, other; No no complaints, No chills, No diaphoresis, No disoriented, No febrile, No requiring IVF, No requiring O2 Eyes: other (Paleness.); No no complaints, No pain, No discharge, No redness, No visual change ENT: No no complaints, No bleeding, No pain, No congestion, No discharge, No dysphagia, No sore throat, No other Respiratory: cough (Dry.), pleuritic pain, shortness of breath; No no complaints, No pain, No sputum, No wheezing, No other Cardiovascular: chest pain, edema; No no complaints, No lightheadedness, No orthopenea, No palpitations, No pa roxysmal nocturnal dyspnea, No other Gastrointestinal: constipation, decreased appetite; No no complaints, No pain, No blood, No diarrhea, No flatus, No nausea, No passing stool, No vomiting, No other Genitourinary: dysuria; No no complaints, No bleeding, No discharge, No flank pain, No hematuria, No other Musculoskeletal: back pain, bone/joint pain, neck pain; No no complaints, No restricted range of motion, No swelling, No other Skin: rash; No no complaints, No bruising, No erythema, No laceration, No pruritis, No skin lesions, No other Neurologic: dizziness, headache; No no complaints, No confusion, No focal-weakness, No syncope, No seizure, No other Lymphatic: adenopathy (Left upper extremity mainly distally from elbow anterior part more prominent than posterior.); No no complaints, No tender nodes, No lymphadema, No other Psychological: anxiety; No no complaints, No nl mood/affect, No confusion, No depression, No suicidal, No other Immunologic: No no complaints, No immunodeficiency, No pruritis, No rhinitis, No urticaria, No other Exam/Review of Systems Exam Vitals Vital Signs Date Temp Pulse Resp B/P (MAP) Pulse Ox O2 O2 Flow FiO2 Time Delivery Rate 10/02/18 98.2 82 18 105/60 97 Nasal 2.0 00:47 (75) Cannula Intake and Output 10/01/18 10/01/18 10/02/18 1515:00 23:00 07:00 IntakeIntake Total 1800 ml 950 ml OutputOutput Total 900 ml 350 ml 500 ml BalanceBalance -900 ml 1450 ml 450 ml Constitutional: alert, oriented, well developed, distress, obese; No non-verbal, No frail, No other Psych: anxiety, depression; No no complaints, No nl mood/affect, No confusion, No suicidal, No other Head: normocephalic, atraumatic; No lacerations, No hematomas, No other Eyes: EOMI, nl lids; No nl conjunctiva, No nl sclera, No PERRL, No icteric, No fundi, disc, No other ENMT: No nl external ears & nose, No nl lips & teeth, No nl nasal mucosa & septum, No mucosa pink and moist, No intubated, No tympanic membranes, No other Neck: bruits, thyromegaly; No supple, No non-tender, No jvd, No masses, No nuchal rigidity, No other Respiratory: diminished breath sounds, other (Status post left thoracentesis site is intact no crepitation.); No clear to auscultation, No normal air movement, No congested cough, No crackles/rales, No intercostal retraction, No labored breathing, No respirations, No tactile fremitus, No wheezing Cardiovascular: regular rate and rhythm, bruits, systolic murmur; No nl pulses, No diastolic murmur, No edema, No gallop, No irregular rhythm, No jugular venous distention (JVD), No murmurs/extra sounds, No rub, No S3, No S4, No other Gastrointestinal: soft, nl liver, spleen, bowel sounds; No non-tender, No ascites, No distended, No firm, No hepatomegaly, No mass, No rebound or guarding, No splenomegaly, No surgical scars, No tender, No other Genitourinary - Female: nl adnexae, nl external genitalia; No CMT, No CVA tenderness, No uterus, No other Musculoskeletal: joint tenderness, muscle tone, muscle weakness; No nl extremities to inspection, No nl gait and stance, No range of motion, No spine non-tender, No swelling, No other Extremities: edema (Right lower extremity less prominent than yesterday left lower extremity no edema.); No normal pulses, No calf tenderness, No cyanosis, No clubbing, No pitting pedal edema, No palpable cord, No tenderness, No other 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: [employer] 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; No nl mental status, No nl speech, No nl strength, No confused, No DTR's symmetric, No focal weakness, No lethargic, No numbness, No reflexes, No unresponsive, No other Skin: nl turgor; No rash or lesions, No diaphoresis, No ecchymosis, No laceration, No puncture, No other Lymph: No nl lymph nodes, No enlarged, No nontender, No other Results Results 24hrs Laboratory Tests Test 10/01/18 16:24 10/01/18 16:49 10/02/18 04:25 10/02/18 04:30 Sodium Level 140 136 Potassium Level 4.3 5.2 H Chloride Level 108 103 Carbon Dioxide Level 27 23 Anion Gap 5 10 # Blood Urea Nitrogen 20 # 28 H Creatinine 0.62 0.76 Est Glomerular > 60 > 60 Filtrat Rate mL/min Glucose Level 98 147 # Calcium Level 8.6 8.8 White Blood Count 3.3 #L 5.5 # Red Blood Count 2.68 #L 2.43 L Hemoglobin 8.7 #L 7.9 L Hematocrit 27.8 #L 25.0 L Mean Corpuscular 103.7 H 102.9 H Volume Mean Corpuscular 32.5 32.5 Hemoglobin Mean Corpuscular 31.3 L 31.6 L Hemoglobin Concent Red Cell 17.5 H 17.2 H Distribution Width Platelet Count 93 #L 135 #L Mean Platelet Volume 8.6 9.9 Immature 0.600 H 0.400 Granulocytes % Neutrophils % 74.0 78.1 H Segmented 75 Neutrophils % (Manual) Band Neutrophils % 3 (Manual) Lymphocytes % 20.0 11.2 L Lymphocytes % 19 (Manual) Monocytes % 4.2 10.1 Monocytes % (Manual) 2 Eosinophils % 0.6 0.0 Basophils % 0.6 0.2 Basophils % (Manual) 1 Nucleated Red Blood 0.0 0.0 Cells % Immature 0.020 0.020 Granulocytes # Neutrophils # 2.4 4.3 Neutrophils # 2.5 (Manual) Band Neutrophils # 0.0 Lymphocytes (Manual) 0.6 L Lymphocytes # 0.7 L 0.6 L Monocytes # 0.1 L 0.6 Monocytes # (Manual) 0.0 L Eosinophils # 0.0 0.0 Basophils # 0.0 0.0 Basophils # (Manual) 0.0 Nucleated Red Blood 0.0 0.0 Cells # Platelet Estimate DECREASED Giant Platelets 2 H Poikilocytosis 1+ Anisocytosis 1+ Macrocytosis 1+ Ovalocytes 1+ Phosphorus Level 6.6 H Magnesium Level 2.0 Urine Color YELLOW Urine Clarity TURBID A Urine pH 5.0 Urine Specific 1.027 [place] Urine Ketones 1+ H Urine Nitrite NEGATIVE Urine Bilirubin NEGATIVE Urine Urobilinogen NEGATIVE Urine Leukocyte 1+ H Esterase Urine Microscopic 21 H RBC Urine Microscopic 27 H WBC Urine Mucus FEW A Urine Hemoglobin NEGATIVE Urine Glucose NEGATIVE Urine Total Protein NEGATIVE Medications Medication Current Medications Acetaminophen (Tylenol Tab) 500 mg Q6H PRN PO MILD PAIN(1-3)OR ELEVATED TEMP Last administered on 09/20/18 22:55; Admin Dose 500 MG; Start 09/09/18 at 22:30 Anastrozole (Arimidex) 1 mg DAILY PO Last administered on 10/02/18 08:20; Admin Dose 1 MG; Start 09/10/18 at 09:00 Carvedilol (Coreg) 3.125 mg BID PO Last administered on 10/01/18 20:26; Admin Dose 3.125 MG; Start 09/09/18 at 22:30 Docusate Sodium (Colace) 200 mg BID PO Last administered on 10/02/18 08:13; Admin Dose 200 MG; Start 09/09/18 at 22:30 Escitalopram Oxalate (Lexapro) 10 mg DAILY PO Last administered on 10/02/18 08:13; Admin Dose 10 MG; Start 09/10/18 at 09:00 Ondansetron HCl (Zofran Tab) 4 mg Q6H PRN PO NAUSEA AND/OR VOMITING Last administered on 09/20/18 08:37; Admin Dose 4 MG; Start 09/09/18 at 22:30 Pantoprazole (Protonix Tab) 40 mg AC BREAKFAST PO Last administered on 10/02/18 08:13; Admin Dose 40 MG; Start 09/10/18 at 07:00 Polyethylene Glycol (Miralax) 17 gm BID PO Last administered on 09/30/18 21:04; Admin Dose 17 GM; Start 09/09/18 at 22:30 Spironolactone (Aldactone) 50 mg DAILY PO Last administered on 09/30/18 09:34; Admin Dose 50 MG; Start 09/13/18 at 18:00 Potassium Chloride (Klor-Con 20) 20 meq BID PO Last administered on 10/01/18 20:23; Admin Dose 20 MEQ; Start 09/15/18 at 21:00 Albuterol/ Ipratropium (Duoneb) 3 ml Q8H RESP THERAPY PRN HHN SHORTNESS OF BREATH Last administered on 09/15/18 16:09; Admin Dose 3 ML; Start 09/15/18 at 14:30 Ondansetron HCl (Zofran Inj) 4 mg Q6H PRN IV NAUSEA AND/OR VOMITING Last administered on 09/28/18 18:43; Admin Dose 4 MG; Start 09/15/18 at 14:30 Oxycodone HCl (Oxycontin) 20 mg Q12 PO Last administered on 10/02/18 08:15; Admin Dose 20 MG; Start 09/15/18 at 21:00 Olopatadine HCl (Patanol 0.1% Oph) 1 drop BID BOTH EYES Last administered on 09/30/18 21:04; Admin Dose 1 DROP; Start 09/16/18 at 21:00 Loratadine (Claritin) 10 mg DAILY PO Last administered on 10/02/18 08:14; Admin Dose 10 MG; Start 09/17/18 at 09:00 Lidocaine (Lidoderm) 2 patch DAILY TD Last administered on 09/30/18 09:32; Admin Dose 2 PATCH; Start 09/26/18 at 17:30 Furosemide (Lasix) 20 mg DAILY PO Last administered on 09/29/18 09:40; Admin Dose 20 MG; Start 09/29/18 at 09:00 Sodium Chloride (Nacl) 2 gm DAILY PO Last administered on 10/02/18 08:14; Admin Dose 2 GM; Start 10/01/18 at 09:00 Hydromorphone HCl (Dilaudid) 0.4 mg Q2H PRN IV .PAIN 6-10 Last administered on 10/01/18 23:26; Admin Dose 0.4 MG; Start 10/01/18 at 16:30 Nalbuphine HCl (Nubain) 10 mg Q4H PRN IV .PRURITUS; Start 10/01/18 at 16:30 Naloxone HCl (Narcan) 0.2 mg Q2M PRN IV .RESP RATE; Start 10/01/18 at 16:30 Miscellaneous Information (* Miscellaneous Pharmacy Order) DURAMORPH: 0.1 MG SPI... GIVEN NEURAXIAL XX ; Start 10/01/18 at 16:30 Acetaminophen (Tylenol Tab) 500 mg Q4H PRN PO .PAIN 1-3; Start 10/01/18 at 17:00; Stop 10/02/18 at 16:59 Sodium Chloride 1,000 ml @ 80 mls/hr [id number] IV Last administered on 10/01/18at 20:22; Admin Dose 80 MLS/HR; Start 10/01/18 at 16:17 Cefazolin Sodium/ Dextrose 50 ml @ 100 mls/hr Q8H IVPB Last administered on 10/02/18at 08:10; Admin Dose 100 MLS/HR; Start 10/01/18 at 16:30; Stop 10/02/18 at 08:59 Simethicone (Mylicon) 80 mg TID PRN PO .GAS; Start 10/01/18 at 16:30 IV Flush (NS 3 ml) 3 ml per protocol IV ; Start 10/01/18 at 16:30 Enoxaparin Sodium (Lovenox) 40 mg DAILY SC Last administered on 10/02/18at 08:22; Admin Dose 40 MG; Start 10/02/18 at 09:00 Morphine Sulfate (morphine) 3 mg Q3H PRN IV SEVERE PAIN LEVEL 7-10; Start 10/01/18 at 16:30 Acetaminophen/ Hydrocodone Bitart ([place] (5/325)) 1 tab Q3H PRN PO MODERATE PAIN LEVEL 4-6; Start 10/01/18 at 16:30 Diphenhydramine HCl (Benadryl) 25 mg Q4H PRN IV .PRURITUS; Start 10/01/18 at 17:00; Stop 10/02/18 at 16:59 Hydromorphone HCl (Dilaudid) 0.2 mg Q2H PRN IV .PAIN 1-5; Start 10/01/18 at 17:00; Stop 10/02/18 at 16:59 RUSS JEROME MD Oct 02, 2018 08:38
[2018-10-02] MEDS: HYDROmorphONE 0.5 MG/0.5 ML SYG IV PRN (09:21)
--- NOTE | 2018-10-02 09:47 | PN ---
DATE: 10/02/2018 SUBJECTIVE: The patient is stable. No events overnight. No fevers, chills, nausea, or vomiting. OBJECTIVE: VITAL SIGNS: Blood pressure 97/52, respirations 18, pulse 100, temperature 98.6. HEENT: Head is normocephalic. NECK: Supple. HEART: Regular rate. LUNGS: Show diminished breath sounds at the base. ABDOMEN: Soft, nontender to palpation without rebound or guarding. EXTREMITIES: Negative for clubbing, cyanosis. Positive edema. DERMATOLOGIC: No rash. MUSCULOSKELETAL: Positive dressing over right hip, clean, dry, intact. No joint effusion. NEUROLOGIC: No change in exam. MEDICATIONS: Reviewed. LABORATORY DATA: Reviewed. ASSESSMENT AND PLAN: 1. Acute hypernatremia, etiology is secondary to hemodynamics, congestive heart failure, the patient 's sodium levels have improved. Continue to monitor. 2. Volume overload. Etiology is possibly multifactorial secondary to congestive heart failure, thir d spacing. Continue current diuretic therapy, and monitor electrolytes closely. 3. Hyperkalemia. Continue to monitor. 4. Alkalosis. Continue to monitor. 5. Left breast cancer with metastasis. Continue medical management. 6. Acute respiratory failure secondary to congestive heart failure, improving. 7. Right hip fracture. The patient is status post arthroplasty. Continue current treatment plan. Continue physical therapy and pain control. 8. Anemia. Monitor hemoglobin and hematocrit levels. 9. Chronic pain syndrome. Dictated By: ANDRÉS TATUM DO NR/NTS Conf#: [id number] DID#: [id number] CC: RUSS JEROME MD;*EndCC*
[2018-10-02] MEDS: ONDANSETRON 4 MG INJ IV PRN ×2 (14:27→20:59)
[2018-10-02] MEDS: morphine 4 MG/ML VIAL IV PRN ×3 (14:54→20:59)
[2018-10-02 15:01] VITALS: BP 106/59; PULSE 101; RESP 17
--- NOTE | 2018-10-02 15:04 | CONS ---
Assessment/Plan Assessment/Plan Hospital Course (Demo Recall) IMPRESSION: 1. Congestive heart failure exacerbation, diastolic by most recent echo, acute on chronic.-neg trop x 3. Echo this admit EF 60/small pericardial effusion 2. Hypotension, currently low 3. Anasarca-improved s/p additional albumin doses 4. Metastatic breast carcinoma. 5. Leukopenia. 6. Thrombocytopenia.-ongoing 7. Pericardial effusion-small by echo with no HD consequence at this time 8. Pleural effusions-recurrent. Initial cytology negative. ? PLeurodesis 9. R femoral head pathologic fracture now post-op s/p ORIF 10/02/18 10. [id number] requiring transfusion Recc: -On med-surg -Continue Lasix diuresis as tolerated only -folllow K clsoely now on standing repletion BID and aldactone -Continue arimidex -Follow NA on salt tabs -coreg as tolerated only -F/U cytology from thoracentesis -TO OR tomorrow for ORIF of R femoral neck fracture Consultation Date/Type/Reason Admit Date/Time Sep 09, 2018 at 14:53 Initial Consult Date 09/09/18 Type of Consult Cardiology Reason for Consultation CHF Requesting Provider: RUSS JEROME MD Date/Time of Note DATE: 10/02/18 TIME: 15:01 Exam/Review of Systems Vital Signs Vitals Vital Signs Date Temp Pulse Resp B/P (MAP) Pulse Ox O2 O2 Flow FiO2 Time Delivery Rate 10/02/18 98.6 100 18 87/52 (64) 98 Room Air 08:00 10/02/18 2.0 08:00 Intake and Output 10/01/18 10/01/18 10/02/18 1515:00 23:00 07:00 IntakeIntake Total 1800 ml 950 ml OutputOutput Total 900 ml 350 ml 500 ml BalanceBalance -900 ml 1450 ml 450 ml Exam Exam Review of Systems: CONSTITUTIONAL: No fevers, chills. PULMONARY: No sob CARDIOVASCULAR: No chest pain/palpitations GASTROINTESTINAL: No nausea/vomiting. GENITOURINARY: No hematuria/dysuria. MUSCULOSKELETAL: mild leg pain PSYCHIATRIC: The patient denies depression. NEUROLOGIC: No weakness Constitutional: alert Psych: no complaints Head: normocephalic ENMT: mucosa pink and moist Neck: supple, jvd (9 cm water) Respiratory: clear to auscultation Cardiovascular: regular rate and rhythm Gastrointestinal: soft, non-tender Musculoskeletal: muscle tone (normal) Extremities: edema (upper extremity) Labs Result Diagram: 10/02/1842410/02/18 042 Results 24hrs Laboratory Tests Test 10/01/18 16:24 10/01/18 16:49 10/02/18 04:25 10/02/18 04:30 Sodium Level 140 136 Potassium Level 4.3 5.2 H Chloride Level 108 103 Carbon Dioxide Level 27 23 Anion Gap 5 10 # Blood Urea Nitrogen 20 # 28 H Creatinine 0.62 0.76 Est Glomerular > 60 > 60 Filtrat Rate mL/min Glucose Level 98 147 # Calcium Level 8.6 8.8 White Blood Count 3.3 #L 5.5 # Red Blood Count 2.68 #L 2.43 L Hemoglobin 8.7 #L 7.9 L Hematocrit 27.8 #L 25.0 L Mean Corpuscular 103.7 H 102.9 H Volume Mean Corpuscular 32.5 32.5 Hemoglobin Mean Corpuscular 31.3 L 31.6 L Hemoglobin Concent Red Cell 17.5 H 17.2 H Distribution Width Platelet Count 93 #L 135 #L Mean Platelet Volume 8.6 9.9 Immature 0.600 H 0.400 Granulocytes % Neutrophils % 74.0 78.1 H Segmented 75 Neutrophils % (Manual) Band Neutrophils % 3 (Manual) Lymphocytes % 20.0 11.2 L Lymphocytes % 19 (Manual) Monocytes % 4.2 10.1 Monocytes % (Manual) 2 Eosinophils % 0.6 0.0 Basophils % 0.6 0.2 Basophils % (Manual) 1 Nucleated Red Blood 0.0 0.0 Cells % Immature 0.020 0.020 Granulocytes # Neutrophils # 2.4 4.3 Neutrophils # 2.5 (Manual) Band Neutrophils # 0.0 Lymphocytes (Manual) 0.6 L Lymphocytes # 0.7 L 0.6 L Monocytes # 0.1 L 0.6 Monocytes # (Manual) 0.0 L Eosinophils # 0.0 0.0 Basophils # 0.0 0.0 Basophils # (Manual) 0.0 Nucleated Red Blood 0.0 0.0 Cells # Platelet Estimate DECREASED Giant Platelets 2 H Poikilocytosis 1+ Anisocytosis 1+ Macrocytosis 1+ Ovalocytes 1+ Phosphorus Level 6.6 H Magnesium Level 2.0 Urine Color YELLOW Urine Clarity TURBID A Urine pH 5.0 Urine Specific 1.027 [place] Urine Ketones 1+ H Urine Nitrite NEGATIVE Urine Bilirubin NEGATIVE Urine Urobilinogen NEGATIVE Urine Leukocyte 1+ H Esterase Urine Microscopic 21 H RBC Urine Microscopic 27 H WBC Urine Mucus FEW A Urine Hemoglobin NEGATIVE Urine Glucose NEGATIVE Urine Total Protein NEGATIVE Medications Medications Current Medications Acetaminophen (Tylenol Tab) 500 mg Q6H PRN PO MILD PAIN(1-3)OR ELEVATED TEMP Last administered on 09/20/18 22:55; Admin Dose 500 MG; Start 09/09/18 at 22:30 Anastrozole (Arimidex) 1 mg DAILY PO Last administered on 10/02/18 08:20; Admin Dose 1 MG; Start 09/10/18 at 09:00 Carvedilol (Coreg) 3.125 mg BID PO Last administered on 10/01/18 20:26; Admin Dose 3.125 MG; Start 09/09/18 at 22:30 Docusate Sodium (Colace) 200 mg BID PO Last administered on 10/02/18 08:13; Admin Dose 200 MG; Start 09/09/18 at 22:30 Escitalopram Oxalate (Lexapro) 10 mg DAILY PO Last administered on 10/02/18 08:13; Admin Dose 10 MG; Start 09/10/18 at 09:00 Ondansetron HCl (Zofran Tab) 4 mg Q6H PRN PO NAUSEA AND/OR VOMITING Last administered on 09/20/18 08:37; Admin Dose 4 MG; Start 09/09/18 at 22:30 Pantoprazole (Protonix Tab) 40 mg AC BREAKFAST PO Last administered on 10/02/18 08:13; Admin Dose 40 MG; Start 09/10/18 at 07:00 Polyethylene Glycol (Miralax) 17 gm BID PO Last administered on 09/30/18 21:04; Admin Dose 17 GM; Start 09/09/18 at 22:30 Spironolactone (Aldactone) 50 mg DAILY PO Last administered on 09/30/18 09:34; Admin Dose 50 MG; Start 09/13/18 at 18:00 Potassium Chloride (Klor-Con 20) 20 meq BID PO Last administered on 10/01/18 20:23; Admin Dose 20 MEQ; Start 09/15/18 at 21:00; Status Hold Albuterol/ Ipratropium (Duoneb) 3 ml Q8H RESP THERAPY PRN HHN SHORTNESS OF BREATH Last administered on 09/15/18 16:09; Admin Dose 3 ML; Start 09/15/18 at 14:30 Ondansetron HCl (Zofran Inj) 4 mg Q6H PRN IV NAUSEA AND/OR VOMITING Last administered on 10/02/18 14:27; Admin Dose 4 MG; Start 09/15/18 at 14:30 Oxycodone HCl (Oxycontin) 20 mg Q12 PO Last administered on 10/02/18 08:15; Admin Dose 20 MG; Start 09/15/18 at 21:00 Olopatadine HCl (Patanol 0.1% Oph) 1 drop BID BOTH EYES Last administered on 09/30/18 21:04; Admin Dose 1 DROP; Start 09/16/18 at 21:00 Loratadine (Claritin) 10 mg DAILY PO Last administered on 10/02/18 08:14; Admin Dose 10 MG; Start 09/17/18 at 09:00 Lidocaine (Lidoderm) 2 patch DAILY TD Last administered on 09/30/18 09:32; Admin Dose 2 PATCH; Start 09/26/18 at 17:30 Furosemide (Lasix) 20 mg DAILY PO Last administered on 09/29/18 09:40; Admin Dose 20 MG; Start 09/29/18 at 09:00 Sodium Chloride (Nacl) 2 gm DAILY PO Last administered on 10/02/18 08:14; Admin Dose 2 GM; Start 10/01/18 at 09:00 Hydromorphone HCl (Dilaudid) 0.4 mg Q2H PRN IV .PAIN 6-10 Last administered on 10/02/18 09:21; Admin Dose 0.4 MG; Start 10/01/18 at 16:30 Nalbuphine HCl (Nubain) 10 mg Q4H PRN IV .PRURITUS; Start 10/01/18 at 16:30 Naloxone HCl (Narcan) 0.2 mg Q2M PRN IV .RESP RATE; Start 10/01/18 at 16:30 Miscellaneous Information (* Miscellaneous Pharmacy Order) DURAMORPH: 0.1 MG SPI... GIVEN NEURAXIAL XX ; Start 10/01/18 at 16:30 Acetaminophen (Tylenol Tab) 500 mg Q4H PRN PO .PAIN 1-3; Start 10/01/18 at 17:00; Stop 10/02/18 at 16:59 Sodium Chloride 1,000 ml @ 80 mls/hr [id number] IV Last administered on 10/01/18at 20:22; Admin Dose 80 MLS/HR; Start 10/01/18 at 16:17 Simethicone (Mylicon) 80 mg TID PRN PO .GAS; Start 10/01/18 at 16:30 IV Flush (NS 3 ml) 3 ml per protocol IV ; Start 10/01/18 at 16:30 Enoxaparin Sodium (Lovenox) 40 mg DAILY SC Last administered on 10/02/18at 08:22; Admin Dose 40 MG; Start 10/02/18 at 09:00 Morphine Sulfate (morphine) 3 mg Q3H PRN IV SEVERE PAIN LEVEL 7-10 Last administered on 10/02/18at 14:54; Admin Dose 3 MG; Start 10/01/18 at 16:30 Acetaminophen/ Hydrocodone Bitart ([place] (5/325)) 1 tab Q3H PRN PO MODERATE PAIN LEVEL 4-6; Start 10/01/18 at 16:30 Diphenhydramine HCl (Benadryl) 25 mg Q4H PRN IV .PRURITUS; Start 10/01/18 at 17:00; Stop 10/02/18 at 16:59 Hydromorphone HCl (Dilaudid) 0.2 mg Q2H PRN IV .PAIN 1-5; Start 10/01/18 at 17:00; Stop 10/02/18 at 16:59 KAMILA TERESA Oct 02, 2018 15:04
[2018-10-02 19:20] VITALS: BP 104/63; PULSE 107; RESP 20
--- NOTE | 2018-10-02 20:17 | CONS ---
Assessment/Plan Assessment/Plan Hospital Course (Demo Recall) METASTATIC BREAST CANCER WITH PRIMARY ADENOCARCINOMA IN the left breast. MULTIPLE BONY METS, PULMONARY METS, LIVER METS CHEMO ON HOLD PT HAS A VERY GOOD RESPONSE TO CHEMO AND AI CONT AI FOR NOW CT ABD FOR RESTAGING 08.27.18- noted , stable CT CHEST- STABLE/IMPROVING 1. Moderate bilateral pleural effusions with adjacent lung base consolidation/atelectasis. 2. Moderate pericardial effusion. 3. Decreased size of previously prominent mediastinal lymph nodes. Decreased size of sub centimeter axillary lymph nodes. 4. Stable nonspecific pulmonary nodules as described above. 5. Stable soft tissue nodule of the anterior left chest wall/breast. 6. Redemonstrated diffuse sclerotic metastatic osseous lesions with stable compression deformities of the thoracic spine. 7. Nodular contour of the liver with multiple hypoattenuating masses, grossly similar to prior exam. CYTOLOGY-NEG CARD - TO MONITOR FOR PERICARDIAL TAMPONADE, FOR NOW NO NEED TO DO PERICARDIOCENTESIS R HIP PAIN MRI R HIP- nondisplaced pathological fracture of the right femoral head merging with the known metastatic lesion. Interval development of synovitis and a large joint effusion as well as psoas bursitis. CT PELVIS- Subacute to chronic pathologic subcapital fracture of the right femoral neck. ORTHO - post-op s/p ORIF 10/02/18 CONT PAIN CONTROL, PT Leucopenia- post chemo NEUPOGEN- DC monitor closely post Neutropenia with occasional fever and chills. Anemia chronic disease SOB PLEURAL EFFUSIONS post thoracentesis cytology -NEG ON 09.18.18 AND 10.01.18 Fluid overload diuretic cardiology F-UP Congestive heart failure exacerbation, diastolic by most recent echo, acute on chronic.-neg trop x 3. Echo this admit EF 60/small pericardia effusion Hypotension, currently borderline-overall improved Anasarca. Severe pain in the interscapular and lumbar sacral area most probably metastatic lesion possible femoral fracture. pathologic fracture of T9 with 60% of loss of height. Obesity. Weight loss 60 pounds during the last 2 years PMS. Myopia. Anxiety disorder. Claustrophobia. Posttraumatic stress disorder. Pain in the left forearm with a history of fracture of ulna and radius. Tachycardia Hypoxemia at night marginal improved after 2 L of nasal cannula oxygen. Deconditioning Pain syndrome. Today the most painful zone is in the right hip area. X-ray did not show any fractures. Hyponatremia- resolved Hypoalbuminemia Right sided cp after catheter insertion and correction less discomfort. Decreased edema both lower extremities with hypotension-improving Swelling of the left forearm-persist. Consultation Date/Type/Reason Admit Date/Time Sep 09, 2018 at 14:53 Initial Consult Date 09/09/18 Type of Consult [facility] [place] Requesting Provider: RUSS JEROME MD Date/Time of Note DATE: 10/02/18 TIME: 20:14 24 HR Interval Summary Free Text/Dictation all noted post op Exam/Review of Systems Exam Vitals Vital Signs Date Temp Pulse Resp B/P (MAP) Pulse Ox O2 O2 Flow FiO2 Time Delivery Rate 10/02/18 98.2 101 17 106/59 96 Nasal 2.0 15:01 (75) Cannula Intake and Output 10/01/18 10/01/18 10/02/18 1414:59 22:59 06:59 IntakeIntake Total 1800 ml 950 ml OutputOutput Total 900 ml 350 ml 500 ml BalanceBalance -900 ml 1450 ml 450 ml Exam Review of Systems: CONSTITUTIONAL: No fevers, chills. PULMONARY: No sob CARDIOVASCULAR: No chest pain/palpitations GASTROINTESTINAL: No nausea/vomiting. GENITOURINARY: No hematuria/dysuria. MUSCULOSKELETAL: mild leg pain PSYCHIATRIC: The patient denies depression. NEUROLOGIC: No weakness Constitutional: alert Psych: no complaints Head: normocephalic ENMT: mucosa pink and moist Neck: supple, jvd (9 cm water) Respiratory: clear to auscultation Cardiovascular: regular rate and rhythm Gastrointestinal: soft, non-tender Musculoskeletal: muscle tone (normal) Extremities: edema (upper extremity), RLE - POSTOP Results Result Diagram: 10/02/18 0425 10/02/18 0425 Results 24hrs Laboratory Tests Test 10/02/18 04:25 10/02/18 04:30 White Blood Count 5.5 # Red Blood Count 2.43 L Hemoglobin 7.9 L Hematocrit 25.0 L Mean Corpuscular Volume 102.9 H Mean Corpuscular Hemoglobin 32.5 Mean Corpuscular Hemoglobin Concent 31.6 L Red Cell Distribution Width 17.2 H Platelet Count 135 #L Mean Platelet Volume 9.9 Immature Granulocytes % 0.400 Neutrophils % 78.1 H Lymphocytes % 11.2 L Monocytes % 10.1 Eosinophils % 0.0 Basophils % 0.2 Nucleated Red Blood Cells % 0.0 Immature Granulocytes # 0.020 Neutrophils # 4.3 Lymphocytes # 0.6 L Monocytes # 0.6 Eosinophils # 0.0 Basophils # 0.0 Nucleated Red Blood Cells # 0.0 Sodium Level 136 Potassium Level 5.2 H Chloride Level 103 Carbon Dioxide Level 23 Anion Gap 10 # Blood Urea Nitrogen 28 H Creatinine 0.76 Est Glomerular Filtrat Rate mL/min > 60 Glucose Level 147 # Calcium Level 8.8 Phosphorus Level 6.6 H Magnesium Level 2.0 Urine Color YELLOW Urine Clarity TURBID A Urine pH 5.0 Urine Specific [place] 1.027 Urine Ketones 1+ H Urine Nitrite NEGATIVE Urine Bilirubin NEGATIVE Urine Urobilinogen NEGATIVE Urine Leukocyte Esterase 1+ H Urine Microscopic RBC 21 H Urine Microscopic WBC 27 H Urine Mucus FEW A Urine Hemoglobin NEGATIVE Urine Glucose NEGATIVE Urine Total Protein NEGATIVE Medications Medication Current Medications Acetaminophen (Tylenol Tab) 500 mg Q6H PRN PO MILD PAIN(1-3)OR ELEVATED TEMP Last administered on 09/20/18 22:55; Admin Dose 500 MG; Start 09/09/18 at 22:30 Anastrozole (Arimidex) 1 mg DAILY PO Last administered on 10/02/18 08:20; Admin Dose 1 MG; Start 09/10/18 at 09:00 Carvedilol (Coreg) 3.125 mg BID PO Last administered on 10/01/18 20:26; Admin Dose 3.125 MG; Start 09/09/18 at 22:30 Docusate Sodium (Colace) 200 mg BID PO Last administered on 10/02/18 08:13; Admin Dose 200 MG; Start 09/09/18 at 22:30 Escitalopram Oxalate (Lexapro) 10 mg DAILY PO Last administered on 10/02/18 08:13; Admin Dose 10 MG; Start 09/10/18 at 09:00 Ondansetron HCl (Zofran Tab) 4 mg Q6H PRN PO NAUSEA AND/OR VOMITING Last administered on 09/20/18 08:37; Admin Dose 4 MG; Start 09/09/18 at 22:30 Pantoprazole (Protonix Tab) 40 mg AC BREAKFAST PO Last administered on 10/02/18 08:13; Admin Dose 40 MG; Start 09/10/18 at 07:00 Polyethylene Glycol (Miralax) 17 gm BID PO Last administered on 09/30/18 2 1:04; Admin Dose 17 GM; Start 09/09/18 at 22:30 Spironolactone (Aldactone) 50 mg DAILY PO Last administered on 09/30/18 09:34; Admin Dose 50 MG; Start 09/13/18 at 18:00 Potassium Chloride (Klor-Con 20) 20 meq BID PO Last administered on 10/01/18 20:23; Admin Dose 20 MEQ; Start 09/15/18 at 21:00; Status Hold Albuterol/ Ipratropium (Duoneb) 3 ml Q8H RESP THERAPY PRN HHN SHORTNESS OF BREATH Last administered on 09/15/18 16:09; Admin Dose 3 ML; Start 09/15/18 at 14:30 Ondansetron HCl (Zofran Inj) 4 mg Q6H PRN IV NAUSEA AND/OR VOMITING Last administered on 10/02/18 14:27; Admin Dose 4 MG; Start 09/15/18 at 14:30 Oxycodone HCl (Oxycontin) 20 mg Q12 PO Last administered on 10/02/18 08:15; Admin Dose 20 MG; Start 09/15/18 at 21:00 Olopatadine HCl (Patanol 0.1% Oph) 1 drop BID BOTH EYES Last administered on 09/30/18 21:04; Admin Dose 1 DROP; Start 09/16/18 at 21:00 Loratadine (Claritin) 10 mg DAILY PO Last administered on 10/02/18 08:14; Admin Dose 10 MG; Start 09/17/18 at 09:00 Lidocaine (Lidoderm) 2 patch DAILY TD Last administered on 09/30/18 09:32; Admin Dose 2 PATCH; Start 09/26/18 at 17:30 Furosemide (Lasix) 20 mg DAILY PO Last administered on 09/29/18 09:40; Admin Dose 20 MG; Start 09/29/18 at 09:00 Sodium Chloride (Nacl) 2 gm DAILY PO Last administered on 10/02/18 08:14; Admin Dose 2 GM; Start 10/01/18 at 09:00 Hydromorphone HCl (Dilaudid) 0.4 mg Q2H PRN IV .PAIN 6-10 Last administered on 4/17/19at 09:21; Admin Dose 0.4 MG; Start 10/01/18 at 16:30 Nalbuphine HCl (Nubain) 10 mg Q4H PRN IV .PRURITUS; Start 10/01/18 at 16:30 Naloxone HCl (Narcan) 0.2 mg Q2M PRN IV .RESP RATE; Start 10/01/18 at 16:30 Miscellaneous Information (* Miscellaneous Pharmacy Order) DURAMORPH: 0.1 MG SPI... GIVEN NEURAXIAL XX ; Start 10/01/18 at 16:30 Sodium Chloride 1,000 ml @ 80 mls/hr [id number] IV Last administered on 10/02/18at 18:21; Admin Dose 80 MLS/HR; Start 10/01/18 at 16:17 Simethicone (Mylicon) 80 mg TID PRN PO .GAS; Start 10/01/18 at 16:30 IV Flush (NS 3 ml) 3 ml per protocol IV ; Start 10/01/18 at 16:30 Enoxaparin Sodium (Lovenox) 40 mg DAILY SC Last administered on 10/02/18at 08:22; Admin Dose 40 MG; Start 10/02/18 at 09:00 Morphine Sulfate (morphine) 3 mg Q3H PRN IV SEVERE PAIN LEVEL 7-10 Last administered on 10/02/18at 18:01; Admin Dose 3 MG; Start 10/01/18 at 16:30 Acetaminophen/ Hydrocodone Bitart ([place] (5/325)) 1 tab Q3H PRN PO MODERATE PAIN LEVEL 4-6; Start 10/01/18 at 16:30 DES DUNAWAY MD Oct 02, 2018 20:17
[2018-10-03] MEDS: morphine 4 MG/ML VIAL IV PRN ×7 (00:22→22:22)
[2018-10-03 02:55] VITALS: BP 105/64; PULSE 106; RESP 20
[2018-10-03] MEDS: ONDANSETRON 4 MG INJ IV PRN (03:01)
[2018-10-03] MEDS: SOD CHLORIDE 0.9% 1,000 ML IV SCH ×2 (06:32→18:17)
[2018-10-03] MEDS: PANTOPRAZOLE (EC) 40 MG TAB PO SCH (06:35)
[2018-10-03 08:47] VITALS: BP 104/60; PULSE 104; RESP 18
[2018-10-03] MEDS: OLOPATADINE 0.1% 5 ML OPH BOTH EYES SCH ×2 (09:00→21:00)
[2018-10-03] MEDS: SODIUM CHLORIDE 1 GM TAB PO SCH (09:00)
[2018-10-03] MEDS: FUROSEMIDE 20 MG TAB PO SCH (09:32)
[2018-10-03] MEDS: DOCUSATE SODIUM 100 MG CAP PO SCH ×2 (09:33→20:12)
[2018-10-03] MEDS: LORATADINE 10 MG TAB PO SCH (09:34)
[2018-10-03] MEDS: ESCITALOPRAM 10 MG TAB PO SCH (09:34)
[2018-10-03] MEDS: ANASTROZOLE 1 MG TAB PO SCH (09:35)
[2018-10-03] MEDS: ENOXAPARIN 40 MG/0.4 ML SYG SC SCH (09:35)
[2018-10-03] MEDS: POLYETHYLENE GLYCOL 17 GM PACKET PO SCH ×2 (09:36→20:12)
[2018-10-03] MEDS: SPIRONOLACTONE 50 MG TAB PO SCH (09:36)
[2018-10-03] MEDS: oxyCODONE (CR) 10 MG TAB [oxyCONTIN] PO SCH ×2 (09:37→20:13)
--- NOTE | 2018-10-03 09:38 | PN ---
DATE: 10/03/2018 SUBJECTIVE: The patient is complaining of nausea, vomiting. Continues to have pain in lower extremi ty. No other events noted. OBJECTIVE: VITAL SIGNS: Blood pressure is 105/64, respirations 20, pulse 106, temperature 98.2. HEENT: Head is normocephalic. NECK: Supple. HEART: Regular rate. LUNGS: Show diminished breath sounds at the base. ABDOMEN: Soft, nontender to palpation without rebound or guarding. EXTREMITIES: Negative for clubbing, cyanosis. Positive edema. DERMATOLOGIC: No rashes. MUSCULOSKELETAL: No joint effusion. NEUROLOGIC: No change in exam. MEDICATIONS: The patient's medications have been reviewed. LABORATORY DATA: Reviewed. ASSESSMENT AND PLAN: 1. Hyponatremia. Etiology is secondary to hemodynamics. The patient's sodium levels have improved. Continue to monitor. 2. Volume overload. Etiology is multifactorial secondary to congestive heart failure, third spacing . Continue current diuretic regimen if hemodynamically stable. Monitor closely. Follow up with Car diology. 3. Hypokalemia. Continue to monitor. 4. Left breast cancer with metastasis. Continue medical management. 5. Acute respiratory failure secondary to congestive heart failure, improved. 6. Right hip fracture, status post arthroplasty. Continue current treatment plan. 7. Chronic pain syndrome. Continue current pain regimen. 8. Anemia. Monitor hemoglobin and hematocrit levels. Dictated By: ANDRÉS YO/NTS Conf#: [id number] DID#: [id number] CC: RUSS JEROME MD;*EndCC*
[2018-10-03] MEDS: LIDOCAINE 5% PATCH TD SCH (09:48)
--- NOTE | 2018-10-03 10:32 | PN ---
Date/Time of Note Date/Time of Note DATE: 10/03/18 TIME: 10:20 Assessment/Plan VTE Prophylaxis Risk score (from Nsg)>0 risk: 7 SCD applied (from Nsg): Yes SCD contraindicated: low risk/ambulating Pharmacological prophylaxis: LMWH Lines/Catheters IV Catheter Type (from Nrsg): Peripheral IV Central line still needed: Yes Urinary Cath still in place: Yes Reason Cath still needed: urinary retention Assessment/Plan Hospital Course S/p recurrent thoracentesis with re-occultation of fluid. By calculating patient's preoperative risk the patient is in mild to moderate cardiac risk category. Due to of multiple vertebral fractures handling of the patient's body on the operative table must be extremely careful. Extra dose of Lasix will be given now to diurese the patient which looks slightly more congested comparing with the yesterday's white having anasarca. No contraindications to surgery. Assessment/Plan S/p recurrent thoracentesis with re-occultation of fluid. By calculating patient's preoperative risk the patient is in mild to moderate cardiac risk category. Due to of multiple vertebral fractures handling of the patient's body on the operative table must be extremely careful. Extra dose of Lasix will be given now to diurese the patient which looks slightly more congested comparing with the yesterday's white having anasarca. No contraindications to surgery. Assessment/Plan Hemiarthroplasty of the right hip 10/01/[address] Shane. S/p recurrent thoracentesis with re-occultation of fluid. Assessment/Plan 1. PRIMARY ADENOCARCINOMA of the left breast. MULTIPLE BONY METS, PULMONARY METS;LIVER METS CHEMO ON HOLD; PT HAS A VERY GOOD RESPONSE TO CHEMO AND AI 2. Severe pain in the interscapular and lumbar sacral area most probably metastatic lesion possible femoral fracture. pathologic fracture of T9 with 60% of loss of height. Neurosurgical f/u. 3. Obesity. 4. Weight loss 60 pounds during the last 2 years by diet 5. PMS. 6. Myopia. 7. Anemia chronic disease with a drop of her hematocrit to 27; 1 units of packed RBC plan to transfuse. Latest results 28. Will recheck tomorrow; Leukopenia.Thrombocytopenia; 8. Anxiety disorder. Claustrophobia. Increase Ativan to 1 mg every 8 as needed at Lexapro 10 mg daily. 9. Posttraumatic stress disorder. 10. Pain in the left forearm with a history of fracture of ulna and radius. 11. Tachycardia 12. Hypoxemia at night marginal improved after 2 L of nasal cannula oxygen. 13. Deconditioning 14. 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 MRI: 09/28/18:diffuse osseous metastatic disease with multiple pathologic compression fractures at least involving the T4, T5, T7, T9 and T11 levels. There is likely mild cortical breakthrough at several levels resulting in mild central canal narrowing. No gross evidence of cord compression is seen.. 15. Pain syndrome. Today the most painful zone is in the right hip area. 16. Hyponatremia-corrected; hypokalemia now hyperkalemic 5.2 hold potassium p.o. today and hold Aldactone today.Recheck and sodium chloride daily with the dose to 4 mg today 17. Leucopenia-improved. 18. Neutropenia with occasional fever and chills. Last chemotherapy 5 days a go. 19. Hypoalbuminemia. 20.Right sided cp after catheter insertion and correction less discomfort. 21. Decreased edema both lower extremities with [id number] with Pleural and Pericardial effusion. 22. pain syndrome 23.bilateral pleural effusions ; s/p left thoracentesis, During the procedure the probe of the u/s was placed to the right side of the chest which showed only minimal amount of liquid on the right pleural cavity. 24. Systolic over diastolic congestive heart failure with a right more than left lower extremity swelling with no DVT in latest venous Doppler. 25. Swelling of the left forearm-persist. Cellulitis of the left forearm with increased edema anteriorly.-Today it is less edematous 26. Pathologic fracture of the right hip;s/p hemiarthroplasty of right hip . Result Diagram: 10/03/18 0454 10/03/18 0454 Results 24hrs Laboratory Tests Test 10/03/18 04:54 10/03/18 06:50 White Blood Count 7.9 # Red Blood Count 2.65 L Hemoglobin 8.5 L Hematocrit 26.0 L Mean Corpuscular Volume 98.1 Mean Corpuscular Hemoglobin 32.1 Mean Corpuscular Hemoglobin Concent 32.7 Red Cell Distribution Width 19.5 H Platelet Count 132 L Mean Platelet Volume 9.1 Immature Granulocytes % 0.400 Neutrophils % 70.1 Lymphocytes % 16.0 Monocytes % 12.9 H Eosinophils % 0.1 Basophils % 0.5 Nucleated Red Blood Cells % 0.0 Immature Granulocytes # 0.030 Neutrophils # 5.5 Lymphocytes # 1.3 Monocytes # 1.0 H Eosinophils # 0.0 Basophils # 0.0 Nucleated Red Blood Cells # 0.0 Sodium Level 135 Potassium Level 4.4 Chloride Level 104 Carbon Dioxide Level 24 Anion Gap 7 Blood Urea Nitrogen 34 H Creatinine 0.94 Est Glomerular Filtrat Rate mL/min > 60 Glucose Level 128 Calcium Level 8.3 L Phosphorus Level 5.2 H Magnesium Level 2.1 Lab Scanned Report BLOOD TRANSFUSION Subjective 24 Hr Interval Summary Free Text/Dictation Pain about 10/10 on the right hip area. Nausea vomiting 3 times since a.m. No fever and chills. I just try to drink water I vomited again. He will only mild improvement of her pain after morphine 3 mg. Discussed with RN to reassess pain score 2 1 hourly and if pain is more than 5 or 10 on a scale of a 10/10 elevated dose of morphine sulfate to 4 mg every 3 hours. Zofran dose was also elevated from 4-8 mg every 6 hours as needed. Constitutional: poor po, requiring IVF, requiring O2; No no complaints, No improved, No chills, No diaphoresis, No disoriented, No febrile, No other Eyes: redness; No no complaints, No pain, No discharge, No visual change, No other ENT: No no complaints, No bleeding, No pain, No congestion, No discharge, No dysphagia, No sore throat, No other Respiratory: cough, pleuritic pain, shortness of breath; No no complaints, No pain, No sputum, No wheezing, No other Cardiovascular: edema, orthopenea; No no complaints, No chest pain, No lightheadedness, No palpitations, No paroxysmal nocturnal dyspnea, No other Gastrointestinal: constipation, decreased appetite, flatus, nausea; No no complaints, No pain, No blood, No diarrhea, No passing stool, No vomiting, No other Genitourinary: dysuria; No no complaints, No bleeding, No discharge, No flank pain, No hematuria, No other Musculoskeletal: back pain, bone/joint pain, neck pain; No no complaints, No restricted range of motion, No swelling, No other Skin: No no complaints, No bruising, No erythema, No laceration, No pruritis, No rash, No skin lesions, No other Neurologic: confusion; No no complaints, No dizziness, No focal-weakness, No headache, No syncope, No seizure, No other Endocrine: dry skin; No no complaints, No polyuria, No polydypsia, No temp intolerance, No other Lymphatic: No no complaints, No adenopathy, No tender nodes, No lymphadema, No other Psychological: anxiety; No no complaints, No nl mood/affect, No confusion, No depression, No suicidal, No other Exam/Review of Systems Exam Vitals Vital Signs Date Temp Pulse Resp B/P (MAP) Pulse Ox O2 O2 Flow FiO2 Time Delivery Rate 10/03/18 98.3 104 18 104/60 95 Room Air 08:47 (75) 10/02/18 2.0 20:00 Intake and Output 10/02/18 10/02/18 10/03/18 1515:00 23:00 07:00 IntakeIntake Total 400 ml 1100 ml 1200 ml OutputOutput Total 300 ml 500 ml 400 ml BalanceBalance 100 ml 600 ml 800 ml Constitutional: alert, oriented, well developed, distress; No non-verbal, No frail, No obese, No other Psych: anxiety, depression; No no complaints, No nl mood/affect, No confusion, No suicidal, No other Head: atraumatic; No normocephalic, No lacerations, No hematomas, No other Eyes: EOMI, nl lids, PERRL; No nl conjunctiva, No nl sclera, No icteric, No fundi, disc, No other ENMT: nl lips & teeth, nl nasal mucosa & septum; No nl external ears & nose, No mucosa pink and moist, No intubated, No tympanic membranes, No other Neck: jvd, bruits, masses; No supple, No non-tender, No thyromegaly, No nuchal rigidity, No other Respiratory: normal air movement, congested cough, diminished breath sounds, la bored breathing; No clear to auscultation, No crackles/rales, No intercostal retraction, No respirations, No tactile fremitus, No wheezing, No other Cardiovascular: regular rate and rhythm, nl pulses, edema (Left upper extremity persistent right lower extremity more prominent than left), systolic murmur; No bruits, No diastolic murmur, No gallop, No irregular rhythm, No jugular venous distention (JVD), No murmurs/extra sounds, No rub, No S3, No S4, No other Gastrointestinal: nl liver, spleen, bowel sounds, rebound or guarding; No soft, No non-tender, No ascites, No distended, No firm, No hepatomegaly, No mass, No splenomegaly, No surgical scars, No tender, No other Genitourinary - Female: No nl adnexae, No nl external genitalia, No CMT, No CVA tenderness, No uterus, No other Musculoskeletal: nl gait and stance, joint tenderness, muscle tone, muscle weakness; No nl extremities to inspection, No range of motion, No spine non-tender, No swelling, No other Extremities: other (I was present when the dressing was changed over the right hip area and Lidoderm patch applied no significant discharge which is the right posterior swelling of the upper part of the right thigh.); No normal pulses, No calf tenderness, No cyanosis, No clubbing, No edema, No pitting pedal edema, No palpable cord, No tenderness 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: 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, nl mental status (Anxious hands with dry mucosal membranes pale weak crying due to pain.), numbness (Hearing impairment) Skin: nl turgor; No rash or lesions, No diaphoresis, No ecchymosis, No laceration, No puncture, No other Lymph: No nl lymph nodes, No enlarged, No nontender, No other Results Results 24hrs Laboratory Tests Test 10/03/18 04:54 10/03/18 06:50 White Blood Count 7.9 # Red Blood Count 2.65 L Hemoglobin 8.5 L Hematocrit 26.0 L Mean Corpuscular Volume 98.1 Mean Corpuscular Hemoglobin 32.1 Mean Corpuscular Hemoglobin Concent 32.7 Red Cell Distribution Width 19.5 H Platelet Count 132 L Mean Platelet Volume 9.1 Immature Granulocytes % 0.400 Neutrophils % 70.1 Lymphocytes % 16.0 Monocytes % 12.9 H Eosinophils % 0.1 Basophils % 0.5 Nucleated Red Blood Cells % 0.0 Immature Granulocytes # 0.030 Neutrophils # 5.5 Lymphocytes # 1.3 Monocytes # 1.0 H Eosinophils # 0.0 Basophils # 0.0 Nucleated Red Blood Cells # 0.0 Sodium Level 135 Potassium Level 4.4 Chloride Level 104 Carbon Dioxide Level 24 Anion Gap 7 Blood Urea Nitrogen 34 H Creatinine 0.94 Est Glomerular Filtrat Rate mL/min > 60 Glucose Level 128 Calcium Level 8.3 L Phosphorus Level 5.2 H Magnesium Level 2.1 Lab Scanned Report BLOOD TRANSFUSION Medications Medication Current Medications Acetaminophen (Tylenol Tab) 500 mg Q6H PRN PO MILD PAIN(1-3)OR ELEVATED TEMP Last administered on 09/20/18 22:55; Admin Dose 500 MG; Start 09/09/18 at 22:30 Anastrozole (Arimidex) 1 mg DAILY PO Last administered on 10/03/18 09:35; Admin Dose 1 MG; Start 09/10/18 at 09:00 Carvedilol (Coreg) 3.125 mg BID PO Last administered on 10/01/18 20:26; Admin Dose 3.125 MG; Start 09/09/18 at 22:30 Docusate Sodium (Colace) 200 mg BID PO Last administered on 10/03/18 09:33; Admin Dose 200 MG; Start 09/09/18 at 22:30 Escitalopram Oxalate (Lexapro) 10 mg DAILY PO Last administered on 10/03/18 09:34; Admin Dose 10 MG; Start 09/10/18 at 09:00 Ondansetron HCl (Zofran Tab) 4 mg Q6H PRN PO NAUSEA AND/OR VOMITING Last administered on 09/20/18 08:37; Admin Dose 4 MG; Start 09/09/18 at 22:30 Pantoprazole (Protonix Tab) 40 mg AC BREAKFAST PO Last administered on 10/03/18 06:35; Admin Dose 40 MG; Start 09/10/18 at 07:00 Polyethylene Glycol (Miralax) 17 gm BID PO Last administered on 10/03/18 09:36; Admin Dose 17 GM; Start 09/09/18 at 22:30 Spironolactone (Aldactone) 50 mg DAILY PO Last administered on 10/03/18 09:36; Admin Dose 50 MG; Start 09/13/18 at 18:00 Potassium Chloride (Klor-Con 20) 20 meq BID PO Last administered on 10/01/18 20:23; Admin Dose 20 MEQ; Start 09/15/18 at 21:00; Status Hold Albuterol/ Ipratropium (Duoneb) 3 ml Q8H RESP THERAPY PRN HHN SHORTNESS OF BREATH Last administered on 09/15/18 16:09; Admin Dose 3 ML; Start 09/15/18 at 14:30 Ondansetron HCl (Zofran Inj) 4 mg Q6H PRN IV NAUSEA AND/OR VOMITING Last administered on 10/03/18 03:01; Admin Dose 4 MG; Start 09/15/18 at 14:30 Oxycodone HCl (Oxycontin) 20 mg Q12 PO Last administered on 10/03/18 09:37; Admin Dose 20 MG; Start 09/15/18 at 21:00 Olopatadine HCl (Patanol 0.1% Oph) 1 drop BID BOTH EYES Last administered on 09/30/18 21:04; Admin Dose 1 DROP; Start 09/16/18 at 21:00 Loratadine (Claritin) 10 mg DAILY PO Last administered on 10/03/18 09:34; Admin Dose 10 MG; Start 09/17/18 at 09:00 Lidocaine (Lidoderm) 2 patch DAILY TD Last administered on 10/03/18 09:48; Admin Dose 1 PATCH; Start 09/26/18 at 17:30 Furosemide (Lasix) 20 mg DAILY PO Last administered on 10/03/18 09:32; Admin Dose 20 MG; Start 09/29/18 at 09:00 Sodium Chloride (Nacl) 2 gm DAILY PO Last administered on 10/02/18 08:14; A dmin Dose 2 GM; Start 10/01/18 at 09:00 Hydromorphone HCl (Dilaudid) 0.4 mg Q2H PRN IV .PAIN 6-10 Last administered on 10/02/18 09:21; Admin Dose 0.4 MG; Start 10/01/18 at 16:30 Nalbuphine HCl (Nubain) 10 mg Q4H PRN IV .PRURITUS; Start 10/01/18 at 16:30 Naloxone HCl (Narcan) 0.2 mg Q2M PRN IV .RESP RATE; Start 10/01/18 at 16:30 Miscellaneous Information (* Miscellaneous Pharmacy Order) DURAMORPH: 0.1 MG SPI... GIVEN NEURAXIAL XX ; Start 10/01/18 at 16:30 Sodium Chloride 1,000 ml @ 80 mls/hr [id number] IV Last administered on 10/03/18at 06:32; Admin Dose 80 MLS/HR; Start 10/01/18 at 16:17 Simethicone (Mylicon) 80 mg TID PRN PO .GAS; Start 10/01/18 at 16:30 IV Flush (NS 3 ml) 3 ml per protocol IV ; Start 10/01/18 at 16:30 Enoxaparin Sodium (Lovenox) 40 mg DAILY SC Last administered on 10/03/18at 09:35; Admin Dose 40 MG; Start 10/02/18 at 09:00 Morphine Sulfate (morphine) 3 mg Q3H PRN IV SEVERE PAIN LEVEL 7-10 Last administered on 10/03/18at 09:30; Admin Dose 3 MG; Start 10/01/18 at 16:30 Acetaminophen/ Hydrocodone Bitart ([place] (5/325)) 1 tab Q3H PRN PO MODERATE PAIN LEVEL 4-6; Start 10/01/18 at 16:30 RUSS JEROME MD Oct 03, 2018 10:31
--- NOTE | 2018-10-03 14:08 | CONS ---
Assessment/Plan Assessment/Plan Hospital Course (Demo Recall) IMPRESSION: 1. Congestive heart failure exacerbation, diastolic by most recent echo, acute on chronic.-neg trop x 3. Echo this admit EF 60/small pericardial effusion 2. Hypotension, currently low 3. Anasarca-improved s/p additional albumin doses 4. Metastatic breast carcinoma. 5. Leukopenia. 6. Thrombocytopenia.-ongoing 7. Pericardial effusion-small by echo with no HD consequence at this time 8. Pleural effusions-recurrent. Initial cytology negative. ? PLeurodesis 9. R femoral head pathologic fracture now post-op s/p ORIF 10/02/18 10. [id number] requiring transfusion Recc: -On med-surg -Continue Lasix diuresis as tolerated only, now daily and would hold additional IVF -folllow K clsoely now on aldactone at this time -Continue arimidex -Follow NA on salt tabs -coreg as tolerated only -F/U cytology from thoracentesis -check 12 lead ecg to document rhythm Consultation Date/Type/Reason Admit Date/Time Sep 09, 2018 at 14:53 Initial Consult Date 09/09/18 Type of Consult Cardiology Reason for Consultation CHF Requesting Provider: RUSS JEROME MD Date/Time of Note DATE: 10/03/18 TIME: 14:06 Exam/Review of Systems Vital Signs Vitals Vital Signs Date Temp Pulse Resp B/P (MAP) Pulse Ox O2 O2 Flow FiO2 Time Delivery Rate 10/03/18 98.3 104 18 104/60 95 Room Air 08:47 (75) 10/02/18 2.0 20:00 Intake and Output 10/02/18 10/02/18 10/03/18 1515:00 23:00 07:00 IntakeIntake Total 400 ml 1100 ml 1200 ml OutputOutput Total 300 ml 500 ml 400 ml BalanceBalance 100 ml 600 ml 800 ml Exam Exam Review of Systems: CONSTITUTIONAL: No fevers, chills. PULMONARY: No sob CARDIOVASCULAR: No chest pain/palpitations GASTROINTESTINAL: No nausea/vomiting. GENITOURINARY: No hematuria/dysuria. MUSCULOSKELETAL: No myagias/arthalgias. PSYCHIATRIC: The patient denies depression. NEUROLOGIC: No weakness Constitutional: other (sleeping, arousable) Head: normocephalic ENMT: mucosa pink and moist Neck: supple, jvd (9 cm water) Respiratory: diminished breath sounds (at bases/B) Cardiovascular: other (tachycardic, regular rhythm) Gastrointestinal: soft, non-tender Musculoskeletal: muscle tone (normal) Extremities: edema (upper extremity) Labs Result Diagram: 10/03/18 0454 10/03/18 0454 Results 24hrs Laboratory Tests Test 10/03/18 04:54 10/03/18 06:50 White Blood Count 7.9 # Red Blood Count 2.65 L Hemoglobin 8.5 L Hematocrit 26.0 L Mean Corpuscular Volume 98.1 Mean Corpuscular Hemoglobin 32.1 Mean Corpuscular Hemoglobin Concent 32.7 Red Cell Distribution Width 19.5 H Platelet Count 132 L Mean Platelet Volume 9.1 Immature Granulocytes % 0.400 Neutrophils % 70.1 Lymphocytes % 16.0 Monocytes % 12.9 H Eosinophils % 0.1 Basophils % 0.5 Nucleated Red Blood Cells % 0.0 Immature Granulocytes # 0.030 Neutrophils # 5.5 Lymphocytes # 1.3 Monocytes # 1.0 H Eosinophils # 0.0 Basophils # 0.0 Nucleated Red Blood Cells # 0.0 Sodium Level 135 Potassium Level 4.4 Chloride Level 104 Carbon Dioxide Level 24 Anion Gap 7 Blood Urea Nitrogen 34 H Creatinine 0.94 Est Glomerular Filtrat Rate mL/min > 60 Glucose Level 128 Calcium Level 8.3 L Phosphorus Level 5.2 H Magnesium Level 2.1 Lab Scanned Report BLOOD TRANSFUSION Medications Medications Current Medications Acetaminophen (Tylenol Tab) 500 mg Q6H PRN PO MILD PAIN(1-3)OR ELEVATED TEMP Last administered on 09/20/18 22:55; Admin Dose 500 MG; Start 09/09/18 at 22:30 Anastrozole (Arimidex) 1 mg DAILY PO Last administered on 10/03/18 09:35; Admin Dose 1 MG; Start 09/10/18 at 09:00 Carvedilol (Coreg) 3.125 mg BID PO Last administered on 10/01/18 20:26; Admin Dose 3.125 MG; Start 09/09/18 at 22:30 Docusate Sodium (Colace) 200 mg BID PO Last administered on 10/03/18 09:33; Admin Dose 200 MG; Start 09/09/18 at 22:30 Escitalopram Oxalate (Lexapro) 10 mg DAILY PO Last administered on 10/03/18 09:34; Admin Dose 10 MG; Start 09/10/18 at 09:00 Ondansetron HCl (Zofran Tab) 4 mg Q6H PRN PO NAUSEA AND/OR VOMITING Last administered on 09/20/18 08:37; Admin Dose 4 MG; Start 09/09/18 at 22:30 Pantoprazole (Protonix Tab) 40 mg AC BREAKFAST PO Last administered on 10/03/18 06:35; Admin Dose 40 MG; Start 09/10/18 at 07:00 Polyethylene Glycol (Miralax) 17 gm BID PO Last administered on 10/03/18 09:36; Admin Dose 17 GM; Start 09/09/18 at 22:30 Spironolactone (Aldactone) 50 mg DAILY PO Last administered on 10/03/18 09:36; Admin Dose 50 MG; Start 09/13/18 at 18:00 Potassium Chloride (Klor-Con 20) 20 meq BID PO Last administered on 10/01/18 20:23; Admin Dose 20 MEQ; Start 09/15/18 at 21:00; Status Hold Albuterol/ Ipratropium (Duoneb) 3 ml Q8H RESP THERAPY PRN HHN SHORTNESS OF BREATH Last administered on 09/15/18 16:09; Admin Dose 3 ML; Start 09/15/18 at 14:30 Oxycodone HCl (Oxycontin) 20 mg Q12 PO Last administered on 10/03/18 09:37; Admin Dose 20 MG; Start 09/15/18 at 21:00 Olopatadine HCl (Patanol 0.1% Oph) 1 drop BID BOTH EYES Last administered on 09/30/18 21:04; Admin Dose 1 DROP; Start 09/16/18 at 21:00 Loratadine (Claritin) 10 mg DAILY PO Last administered on 10/03/18 09:34; Admin Dose 10 MG; Start 09/17/18 at 09:00 Lidocaine (Lidoderm) 2 patch DAILY TD Last administered on 10/03/18 09:48; Admin Dose 1 PATCH; Start 09/26/18 at 17:30 Furosemide (Lasix) 20 mg DAILY PO Last administered on 10/03/18 09:32; Admin Dose 20 MG; Start 09/29/18 at 09:00 Sodium Chloride (Nacl) 2 gm DAILY PO Last administered on 10/02/18at 08:14; Admin Dose 2 GM; Start 10/01/18 at 09:00 Hydromorphone HCl (Dilaudid) 0.4 mg Q2H PRN IV .PAIN 6-10 Last administered on 10/02/18at 09:21; Admin Dose 0.4 MG; Start 10/01/18 at 16:30 Nalbuphine HCl (Nubain) 10 mg Q4H PRN IV .PRURITUS; Start 10/01/18 at 16:30 Naloxone HCl (Narcan) 0.2 mg Q2M PRN IV .RESP RATE; Start 10/01/18 at 16:30 Miscellaneous Information (* Miscellaneous Pharmacy Order) DURAMORPH: 0.1 MG SPI... GIVEN NEURAXIAL XX ; Start 10/01/18 at 16:30 Sodium Chloride 1,000 ml @ 80 mls/hr [id number] IV Last administered on 10/03/18at 06:32; Admin Dose 80 MLS/HR; Start 10/01/18 at 16:17 Simethicone (Mylicon) 80 mg TID PRN PO .GAS; Start 10/01/18 at 16:30 IV Flush (NS 3 ml) 3 ml per protocol IV ; Start 10/01/18 at 16:30 Enoxaparin Sodium (Lovenox) 40 mg DAILY SC Last administered on 10/03/18at 09:35; Admin Dose 40 MG; Start 10/02/18 at 09:00 Acetaminophen/ Hydrocodone Bitart ([place] (5/325)) 1 tab Q3H PRN PO MODERATE PAIN LEVEL 4-6; Start 10/01/18 at 16:30 Morphine Sulfate (morphine) 4 mg Q3H PRN IV SEVERE PAIN LEVEL 7-10 Last administered on 10/03/18at 12:40; Admin Dose 4 MG; Start 10/03/18 at 13:30 Ondansetron HCl 8 mg/Dextrose 54 ml @ 212 mls/hr Q6H PRN IV NAUSEA AND/OR VOMITING; Start 10/03/18 at 11:30 KAMILA TERESA Oct 03, 2018 14:08
[2018-10-03] MEDS ORDERED: ONDANSETRON 4 MG INJ IV PRN (14:30)
[2018-10-03 16:34] VITALS: BP 106/71; PULSE 113; RESP 18
[2018-10-03] MEDS ORDERED: SOD CHLORIDE 0.9% 500 ML IV ONE (17:00)
[2018-10-03 18:20] VITALS: BP 113/74; PULSE 115; RESP 18
--- NOTE | 2018-10-03 19:00 | RADRPT ---
Vent Rate: 120 bpm RR Interval: 0 msec SD Interval: 196 msec QRS Duration: 52 msec QT Interval: 296 msec QTC Interval: 418 msec P-R-T [place]: 35 - -32 - 19 degrees Sinus tachycardia Left axis deviation Low voltage QRS Inferior infarct , age undetermined Possible Anterolateral infarct , age undetermined Abnormal ECG Electronically Signed By: Myke Hurtado
[2018-10-03 19:10] VITALS: BP 102/76; PULSE 114; RESP 20
[2018-10-03] MEDS: ALBUTEROL/IPRATROPIUM (NEB) 3 ML AMP HHN PRN (19:11)
[2018-10-03] MEDS: ONDANSETRON INJ 8 MG in DEXTROSE 5% 50 ML IV PRN (19:53)
--- NOTE | 2018-10-03 22:51 | CONS ---
Assessment/Plan Assessment/Plan Hospital Course (Demo Recall) METASTATIC BREAST CANCER WITH PRIMARY ADENOCARCINOMA IN the left breast. MULTIPLE BONY METS, PULMONARY METS, LIVER METS CHEMO ON HOLD PT HAS A VERY GOOD RESPONSE TO CHEMO AND AI CONT AI FOR NOW CT ABD FOR RESTAGING 08.27.18- noted , stable CT CHEST- STABLE/IMPROVING 1. Moderate bilateral pleural effusions with adjacent lung base consolidation/atelectasis. 2. Moderate pericardial effusion. 3. Decreased size of previously prominent mediastinal lymph nodes. Decreased size of sub centimeter axillary lymph nodes. 4. Stable nonspecific pulmonary nodules as described above. 5. Stable soft tissue nodule of the anterior left chest wall/breast. 6. Redemonstrated diffuse sclerotic metastatic osseous lesions with stable compression deformities of the thoracic spine. 7. Nodular contour of the liver with multiple hypoattenuating masses, grossly similar to prior exam. CYTOLOGY-NEG CARD - TO MONITOR FOR PERICARDIAL TAMPONADE, FOR NOW NO NEED TO DO PERICARDIOCENTESIS R HIP PAIN MRI R HIP- nondisplaced pathological fracture of the right femoral head merging with the known metastatic lesion. Interval development of synovitis and a large joint effusion as well as psoas bursitis. CT PELVIS- Subacute to chronic pathologic subcapital fracture of the right femoral neck. ORTHO - post-op s/p ORIF 10/02/18 CONT PAIN CONTROL, PT Leucopenia- post chemo NEUPOGEN- DC monitor closely post Neutropenia with occasional fever and chills. Anemia chronic disease SOB PLEURAL EFFUSIONS post thoracentesis cytology -NEG ON 09.18.18 AND 10.01.18 Fluid overload diuretic cardiology F-UP Congestive heart failure exacerbation, diastolic by most recent echo, acute on chronic.-neg trop x 3. Echo this admit EF 60/small pericardia effusion Hypotension, currently borderline-overall improved Anasarca. Severe pain in the interscapular and lumbar sacral area most probably metastatic lesion possible femoral fracture. pathologic fracture of T9 with 60% of loss of height. Obesity. Weight loss 60 pounds during the last 2 years PMS. Myopia. Anxiety disorder. Claustrophobia. Posttraumatic stress disorder. Pain in the left forearm with a history of fracture of ulna and radius. Tachycardia Hypoxemia at night marginal improved after 2 L of nasal cannula oxygen. Deconditioning Pain syndrome. Today the most painful zone is in the right hip area. X-ray did not show any fractures. Hyponatremia- resolved Hypoalbuminemia Right sided cp after catheter insertion and correction less discomfort. Decreased edema both lower extremities with hypotension-improving Swelling of the left forearm-persist. Consultation Date/Type/Reason Admit Date/Time Sep 09, 2018 at 14:53 Initial Consult Date 09/09/18 Type of Consult [facility] Requesting Provider: RUSS JEROME MD Date/Time of Note DATE: 10/03/18 TIME: 22:49 24 HR Interval Summary Free Text/Dictation ALL NOTED FELLING BETTER TODAY Exam/Review of Systems Exam Vitals Vital Signs Date Temp Pulse Resp B/P (MAP) Pulse Ox O2 O2 Flow FiO2 Time Delivery Rate 10/03/18 2.0 19:13 10/03/18 113 22 98 Nasal 19:13 Cannula 10/03/18 99.5 102/76 19:10 (85) Intake and Output 10/02/18 10/02/18 10/03/18 1515:00 23:00 07:00 IntakeIntake Total 400 ml 1100 ml 1200 ml OutputOutput Total 300 ml 500 ml 400 ml BalanceBalance 100 ml 600 ml 800 ml Exam Constitutional: alert, oriented, well developed, distress; No non-verbal, No frail, No obese, No other Psych: anxiety, depression; No no complaints, No nl mood/affect, No confusion, No suicidal, No other Head: atraumatic; No normocephalic, No lacerations, No hematomas, No other Eyes: EOMI, nl lids, PERRL; No nl conjunctiva, No nl sclera, No icteric, No fundi, disc, No other ENMT: nl lips & teeth, nl nasal mucosa & septum; No nl external ears & nose, No mucosa pink and moist, No intubated, No tympanic membranes, No other Neck: jvd, bruits, masses; No supple, No non-tender, No thyromegaly, No nuchal rigidity, No other Respiratory: normal air movement, congested cough, diminished breath sounds, labored breathing; No clear to auscultation, No crackles/rales, No intercostal retraction, No respirations, No tactile fremitus, No wheezing, No other Cardiovascular: regular rate and rhythm, nl pulses, edema (Left upper extremity persistent right lower extremity more prominent than left), systolic murmur; No bruits, No diastolic murmur, No gallop, No irregular rhythm, No jugular venous distention (JVD), No murmurs/extra sounds, No rub, No S3, No S4, No other Gastrointestinal: nl liver, spleen, bowel sounds, rebound or guarding; No soft, No non-tender, No ascites, No distended, No firm, No hepatomegaly, No mass, No splenomegaly, No surgical scars, No tender, No other Genitourinary - Female: No nl adnexae, No nl external genitalia, No CMT, No CVA tenderness, No uterus, No other Musculoskeletal: nl gait and stance, joint tenderness, muscle tone, muscle weakness; No nl extremities to inspection, No range of motion, No spine non-tender, No swelling, No other Extremities: other - dressing-over the right hip area and + Lidoderm patch No normal pulses, No calf tenderness, No cyanosis, No clubbing, No edema, No pitting pedal edema, No palpable cord, No tenderness 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: 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, nl mental status , numbness (Hearing impairment) Skin: nl turgor; No rash or lesions, No diaphoresis, No ecchymosis, No laceration, No puncture, No other Lymph: No nl lymph nodes, No enlarged, No nontender, No other Results Result Diagram: 10/03/184 10/03/18 0454 Results 24hrs Laboratory Tests Test 10/03/18 04:54 10/03/18 06:50 White Blood Count 7.9 # Red Blood Count 2.65 L Hemoglobin 8.5 L Hematocrit 26.0 L Mean Corpuscular Volume 98.1 Mean Corpuscular Hemoglobin 32.1 Mean Corpuscular Hemoglobin Concent 32.7 Red Cell Distribution Width 19.5 H Platelet Count 132 L Mean Platelet Volume 9.1 Immature Granulocytes % 0.400 Neutrophils % 70.1 Lymphocytes % 16.0 Monocytes % 12.9 H Eosinophils % 0.1 Basophils % 0.5 Nucleated Red Blood Cells % 0.0 Immature Granulocytes # 0.030 Neutrophils # 5.5 Lymphocytes # 1.3 Monocytes # 1.0 H Eosinophils # 0.0 Basophils # 0.0 Nucleated Red Blood Cells # 0.0 Sodium Level 135 Potassium Level 4.4 Chloride Level 104 Carbon Dioxide Level 24 Anion Gap 7 Blood Urea Nitrogen 34 H Creatinine 0.94 Est Glomerular Filtrat Rate mL/min > 60 Glucose Level 128 Calcium Level 8.3 L Phosphorus Level 5.2 H Magnesium Level 2.1 Lab Scanned Report BLOOD TRANSFUSION Medications Medication Current Medications Acetaminophen (Tylenol Tab) 500 mg Q6H PRN PO MILD PAIN(1-3)OR ELEVATED TEMP Last administered on 09/20/18 22:55; Admin Dose 500 MG; Start 09/09/18 at 22:30 Anastrozole (Arimidex) 1 mg DAILY PO Last administered on 10/03/18 09:35; Admin Dose 1 MG; Start 09/10/18 at 09:00 Carvedilol (Coreg) 3.125 mg BID PO Last administered on 10/01/18 20:26; Admin Dose 3.125 MG; Start 09/09/18 at 22:30 Docusate Sodium (Colace) 200 mg BID PO Last administered on 10/03/18 20:12; Admin Dose 200 MG; Start 09/09/18 at 22:30 Escitalopram Oxalate (Lexapro) 10 mg DAILY PO Last administered on 10/03/18 09:34; Admin Dose 10 MG; Start 09/10/18 at 09:00 Ondansetron HCl (Zofran Tab) 4 mg Q6H PRN PO NAUSEA AND/OR VOMITING Last administered on 09/20/18 08:37; Admin Dose 4 MG; Start 09/09/18 at 22:30 Pantoprazole (Protonix Tab) 40 mg AC BREAKFAST PO Last administered on 10/03/18 06:35; Admin Dose 40 MG; Start 09/10/18 at 07:00 Polyethylene Glycol (Miralax) 17 gm BID PO Last administered on 10/03/18 20:12; Admin Dose 17 GM; Start 09/09/18 at 22:30 Spironolactone (Aldactone) 50 mg DAILY PO Last administered on 10/03/18 09:36; Admin Dose 50 MG; Start 09/13/18 at 18:00 Potassium Chloride (Klor-Con 20) 20 meq BID PO Last administered on 10/01/18 20:23; Admin Dose 20 MEQ; Start 09/15/18 at 21:00; Status Hold Albuterol/ Ipratropium (Duoneb) 3 ml Q8H RESP THERAPY PRN HHN SHORTNESS OF BREATH Last administered on 10/03/18 19:11; Admin Dose 3 ML; Start 09/15/18 at 14:30 Oxycodone HCl (Oxycontin) 20 mg Q12 PO Last administered on 10/03/18 20:13; Admin Dose 20 MG; Start 09/15/18 at 21:00 Olopatadine HCl (Patanol 0.1% Oph) 1 drop BID BOTH EYES Last administered on 09/30/18 21:04; Admin Dose 1 DROP; Start 09/16/18 at 21:00 Loratadine (Claritin) 10 mg DAILY PO Last administered on 10/03/18 09:34; Admin Dose 10 MG; Start 09/17/18 at 09:00 Lidocaine (Lidoderm) 2 patch DAILY TD Last administered on 10/03/18 09:48; Admin Dose 1 PATCH; Start 09/26/18 at 17:30 Furosemide (Lasix) 20 mg DAILY PO Last administered on 10/03/18 09:32; Admin Dose 20 MG; Start 09/29/18 at 09:00 Sodium Chloride (Nacl) 2 gm DAILY PO Last administered on 10/02/18 08:14; Admin Dose 2 GM; Start 10/01/18 at 09:00 Hydromorphone HCl (Dilaudid) 0.4 mg Q2H PRN IV .PAIN 6-10 Last administered on 10/02/18 09:21; Admin Dose 0.4 MG; Start 10/01/18 at 16:30 Nalbuphine HCl (Nubain) 10 mg Q4H PRN IV .PRURITUS; Start 10/01/18 at 16:30 Naloxone HCl (Narcan) 0.2 mg Q2M PRN IV .RESP RATE; Start 10/01/18 at 16:30 Miscellaneous Information (* Miscellaneous Pharmacy Order) DURAMORPH: 0.1 MG SPI... GIVEN NEURAXIAL XX ; Start 10/01/18 at 16:30 Sodium Chloride 1,000 ml @ 80 mls/hr [id number] IV Last administered on 10/03/18 06:32; Admin Dose 80 MLS/HR; Start 10/01/18 at 16:17 Simethicone (Mylicon) 80 mg TID PRN PO .GAS; Start 10/01/18 at 16:30 IV Flush (NS 3 ml) 3 ml per protocol IV ; Start 10/01/18 at 16:30 Enoxaparin Sodium (Lovenox) 40 mg DAILY SC Last administered on 10/03/18at 09:35; Admin Dose 40 MG; Start 10/02/18 at 09:00 Acetaminophen/ Hydrocodone Bitart ([place] (5/325)) 1 tab Q3H PRN PO MODERATE PAIN LEVEL 4-6; Start 10/01/18 at 16:30 Ondansetron HCl 8 mg/Dextrose 54 ml @ 212 mls/hr Q6H PRN IV NAUSEA AND/OR VOMITING Last administered on 10/03/18at 19:53; Admin Dose 212 MLS/HR; Start 10/03/18 at 11:30 Morphine Sulfate (morphine) 4 mg Q2 PRN IV SEVERE PAIN LEVEL 7-10 Last administered on 10/03/18 22:22; Admin Dose 4 MG; Start 10/03/18 at 18:30 DES DUNAWAY MD Oct 03, 2018 22:51
[2018-10-04] MEDS: morphine 4 MG/ML VIAL IV PRN ×5 (00:48→23:05)
[2018-10-04 02:17] VITALS: BP 118/73; PULSE 101; RESP 20
[2018-10-04] MEDS: PANTOPRAZOLE (EC) 40 MG TAB PO SCH ×2 (05:08→09:45)
[2018-10-04] MEDS: ONDANSETRON 4 MG TAB PO PRN (05:13)
[2018-10-04 07:53] VITALS: BP 103/54; PULSE 101; RESP 17
[2018-10-04] MEDS: SODIUM CHLORIDE 1 GM TAB PO SCH (09:00)
[2018-10-04] MEDS: OLOPATADINE 0.1% 5 ML OPH BOTH EYES SCH ×2 (09:00→21:00)
[2018-10-04] MEDS ORDERED: FUROSEMIDE 20 MG INJ IV ONE (09:30)
--- NOTE | 2018-10-04 09:30 | PN ---
DATE: 10/04/2018 SUBJECTIVE: The patient is stable. The patient complained of lower extremity swelling. No other ev ents noted. OBJECTIVE: VITAL SIGNS: Blood pressure is 103/54, respirations 17, pulse 101, temperature 98.1. HEENT: Head is normocephalic. NECK: Supple. HEART: Regular rate. LUNGS: Show diminished breath sounds at the base. ABDOMEN: Soft, nontender to palpation. No rebound or guarding. EXTREMITIES: Negative for clubbing, cyanosis. Positive edema bilateral lower extremity, left upper extremity. DERMATOLOGIC: No rashes. MUSCULOSKELETAL: No joint effusions. NEUROLOGIC: No change in exam. MEDICATIONS: The patient's medications have been reviewed. LABORATORY DATA: Has been reviewed. ASSESSMENT AND PLAN: 2. Hyponatremia, etiology is initially felt to be secondary to hemodynamics, patient's possible hear t failure. The patient's sodium levels initially improved with diuretic therapy and free water restr iction. Patient's sodium levels have declined in the last 24 hours. Plan is to give an extra dose o f diuretic therapy. Stop IV fluids. Minimize free water intake and monitor closely. 2. Volume overload. Etiology is multifactorial secondary to congestive heart failure. Third spacin g. Continue current diuretic regimen, intensify as stated above. 3. Hypokalemia. Continue to monitor. 4. Left breast cancer with metastasis. Continue to monitor. 5. Right hip fracture status post right hip arthroplasty. Continue to monitor. 6. Chronic pain syndrome. Continue current pain regimen. 7. Anemia. Continue to monitor hemoglobin and hematocrit levels. Dictated By: ANDRÉS YO/NTS Conf#: [id number] DID#: [id number] CC: RUSS JEROME MD;*EndCC*
[2018-10-04] MEDS: ANASTROZOLE 1 MG TAB PO SCH (09:43)
[2018-10-04] MEDS: oxyCODONE (CR) 10 MG TAB [oxyCONTIN] PO SCH ×2 (09:46→20:48)
[2018-10-04] MEDS: FUROSEMIDE 20 MG TAB PO SCH (09:48)
[2018-10-04] MEDS: ESCITALOPRAM 10 MG TAB PO SCH (09:48)
[2018-10-04] MEDS: DOCUSATE SODIUM 100 MG CAP PO SCH ×2 (09:48→20:47)
[2018-10-04] MEDS: LORATADINE 10 MG TAB PO SCH (09:49)
[2018-10-04] MEDS: SPIRONOLACTONE 50 MG TAB PO SCH (09:50)
[2018-10-04] MEDS: POLYETHYLENE GLYCOL 17 GM PACKET PO SCH ×2 (09:50→20:55)
[2018-10-04] MEDS: ENOXAPARIN 40 MG/0.4 ML SYG SC SCH (10:04)
[2018-10-04] MEDS: LIDOCAINE 5% PATCH TD SCH (10:14)
[2018-10-04 14:49] VITALS: BP 105/55; PULSE 97; RESP 18
--- NOTE | 2018-10-04 16:58 | CONS ---
Assessment/Plan Assessment/Plan Hospital Course (Demo Recall) IMPRESSION: 1. Congestive heart failure exacerbation, diastolic by most recent echo, acute on chronic.-neg trop x 3. Echo this admit EF 60/small pericardial effusion 2. Hypotension, currently low 3. Anasarca-improved s/p additional albumin doses 4. Metastatic breast carcinoma. 5. Leukopenia. 6. Thrombocytopenia.-ongoing 7. Pericardial effusion-small by echo with no HD consequence at this time 8. Pleural effusions-recurrent. Initial cytology negative. ? PLeurodesis 9. R femoral head pathologic fracture now post-op s/p ORIF 10/02/18 10. [id number] requiring transfusion 11.Tachycardia-S tach by ecg 10/03. Likley driven by pain/discomfort Recc: -On med-surg -Continue Lasix diuresis as tolerated only, now daily and is s/p extra dose IV to improve volume status overall -Holding additional IVF at the time -folllow K clsoely now on aldactone at this time -Continue arimidex -Follow NA on salt tabs -coreg as tolerated only -F/U cytology from thoracentesis Consultation Date/Type/Reason Admit Date/Time Sep 09, 2018 at 14:53 Initial Consult Date 09/09/18 Type of Consult Cardiology Reason for Consultation CHF Requesting Provider: RUSS JEROME MD Date/Time of Note DATE: 10/04/18 TIME: 16:55 Exam/Review of Systems Vital Signs Vitals Vital Signs Date Temp Pulse Resp B/P (MAP) Pulse Ox O2 O2 Flow FiO2 Time Delivery Rate 10/04/18 99.0 97 18 105/55 81 14:49 (72) 10/04/18 Nasal 07:53 Cannula 10/04/18 2.0 07:05 Intake and Output 10/03/18 10/03/18 10/04/18 1515:00 23:00 07:00 IntakeIntake Total 400 ml 1700 ml BalanceBalance 400 ml 1700 ml Exam Exam Review of Systems: CONSTITUTIONAL: No fevers, chills. PULMONARY: No sob CARDIOVASCULAR: No chest pain/palpitations GASTROINTESTINAL: No nausea/vomiting. GENITOURINARY: No hematuria/dysuria. MUSCULOSKELETAL: mild pain in leg PSYCHIATRIC: The patient denies depression. NEUROLOGIC: No weakness Constitutional: alert Psych: no complaints Head: normocephalic ENMT: mucosa pink and moist Neck: supple, jvd (9 cm water) Respiratory: diminished breath sounds (at bases/B) Cardiovascular: regular rate and rhythm Gastrointestinal: soft, non-tender Musculoskeletal: muscle tone (normal), muscle weakness (mild generalized) Extremities: edema (trace/B) 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: other (No focal deficits) Labs Result Diagram: 10/04/1844210/04/183 Results 24hrs Laboratory Tests Test 10/04/18 04:42 10/04/18 04:43 Iron Level < 10 L Total Iron Binding Capacity 224 L Percent Iron Saturation White Blood Count 5.8 # Red Blood Count 2.41 L Hemoglobin 7.6 L Hematocrit 23.8 L Mean Corpuscular Volume 98.8 Mean Corpuscular Hemoglobin 31.5 Mean Corpuscular Hemoglobin Concent 31.9 L Red Cell Distribution Width 18.8 H Platelet Count 126 L Mean Platelet Volume 9.2 Immature Granulocytes % 0.200 Neutrophils % 61.4 Lymphocytes % 21.7 Monocytes % 13.8 H Eosinophils % 2.4 Basophils % 0.5 Nucleated Red Blood Cells % 0.0 Immature Granulocytes # 0.010 Neutrophils # 3.6 Lymphocytes # 1.3 Monocytes # 0.8 Eosinophils # 0.1 Basophils # 0.0 Nucleated Red Blood Cells # 0.0 Sodium Level 132 L Potassium Level 4.8 Chloride Level 101 Carbon Dioxide Level 25 Anion Gap 6 Blood Urea Nitrogen 30 H Creatinine 0.86 Est Glomerular Filtrat Rate mL/min > 60 Glucose Level 113 Calcium Level 8.1 L Magnesium Level 2.1 Total Bilirubin 0.7 Direct Bilirubin 0.00 Indirect Bilirubin 0.7 Aspartate Amino Transf (AST/SGOT) 23 Alanine Aminotransferase (ALT/SGPT) 17 Alkaline Phosphatase 44 Total Protein 4.9 L Albumin 2.7 L Globulin 2.20 Albumin/Globulin Ratio 1.22 Medications Medications Current Medications Acetaminophen (Tylenol Tab) 500 mg Q6H PRN PO MILD PAIN(1-3)OR ELEVATED TEMP Last administered on 09/20/18at 22:55; Admin Dose 500 MG; Start 09/09/18 at 22:30 Anastrozole (Arimidex) 1 mg DAILY PO Last administered on 10/04/18at 09:43; Admin Dose 1 MG; Start 09/10/18 at 09:00 Carvedilol (Coreg) 3.125 mg BID PO Last administered on 10/01/18 20:26; Admin Dose 3.125 MG; Start 09/09/18 at 22:30 Docusate Sodium (Colace) 200 mg BID PO Last administered on 10/04/18 09:48; Admin Dose 200 MG; Start 09/09/18 at 22:30 Escitalopram Oxalate (Lexapro) 10 mg DAILY PO Last administered on 10/04/18 09:48; Admin Dose 10 MG; Start 09/10/18 at 09:00 Ondansetron HCl (Zofran Tab) 4 mg Q6H PRN PO NAUSEA AND/OR VOMITING Last administered on 10/04/18 05:13; Admin Dose 4 MG; Start 09/09/18 at 22:30 Pantoprazole (Protonix Tab) 40 mg AC BREAKFAST PO Last administered on 09:45; Admin Dose 40 MG; Start 09/10/18 at 07:00 Polyethylene Glycol (Miralax) 17 gm BID PO Last administered on 10/04/18 09:50; Admin Dose 17 GM; Start 09/09/18 at 22:30 Spironolactone (Aldactone) 50 mg DAILY PO Last administered on 10/04/18 09:50; Admin Dose 50 MG; Start 09/13/18 at 18:00 Potassium Chloride (Klor-Con 20) 20 meq BID PO Last administered on 10/01/18 20:23; Admin Dose 20 MEQ; Start 09/15/18 at 21:00; Status Hold Albuterol/ Ipratropium (Duoneb) 3 ml Q8H RESP THERAPY PRN HHN SHORTNESS OF BREATH Last administered on 10/03/18 19:11; Admin Dose 3 ML; Start 09/15/18 at 14:30 Oxycodone HCl (Oxycontin) 20 mg Q12 PO Last administered on 10/04/18 09:46; Admin Dose 20 MG; Start 09/15/18 at 21:00 Olopatadine HCl (Patanol 0.1% Oph) 1 drop BID BOTH EYES Last administered on 09/30/18 21:04; Admin Dose 1 DROP; Start 09/16/18 at 21:00 Loratadine (Claritin) 10 mg DAILY PO Last administered on 10/04/18 09:49; Admin Dose 10 MG; Start 09/17/18 at 09:00 Lidocaine (Lidoderm) 2 patch DAILY TD Last administered on 10/04/18 10:14; Admin Dose 1 PATCH; Start 09/26/18 at 17:30 Furosemide (Lasix) 20 mg DAILY PO Last administered on 10/04/18 09:48; Admin Dose 20 MG; Start 09/29/18 at 09:00 Sodium Chloride (Nacl) 2 gm DAILY PO Last administered on 10/02/18 08:14; Admin Dose 2 GM; Start 10/01/18 at 09:00 Hydromorphone HCl (Dilaudid) 0.4 mg Q2H PRN IV .PAIN 6-10 Last administered on 10/02/18 09:21; Admin Dose 0.4 MG; Start 10/01/18 at 16:30 Nalbuphine HCl (Nubain) 10 mg Q4H PRN IV .PRURITUS; Start 10/01/18 at 16:30 Naloxone HCl (Narcan) 0.2 mg Q2M PRN IV .RESP RATE; Start 10/01/18 at 16:30 Miscellaneous Information (* Miscellaneous Pharmacy Order) DURAMORPH: 0.1 MG SPI... GIVEN NEURAXIAL XX ; Start 10/01/18 at 16:30 Simethicone (Mylicon) 80 mg TID PRN PO .GAS; Start 10/01/18 at 16:30 IV Flush (NS 3 ml) 3 ml per protocol IV ; Start 10/01/18 at 16:30 Enoxaparin Sodium (Lovenox) 40 mg DAILY SC Last administered on 10/04/18at 10:04; Admin Dose 40 MG; Start 10/02/18 at 09:00 Acetaminophen/ Hydrocodone Bitart ([place] (5/325)) 1 tab Q3H PRN PO MODERATE PAIN LEVEL 4-6; Start 10/01/18 at 16:30 Ondansetron HCl 8 mg/Dextrose 54 ml @ 212 mls/hr Q6H PRN IV NAUSEA AND/OR VOMITING Last administered on 10/03/18 19:53; Admin Dose 212 MLS/HR; Start 10/03/18 at 11:30 Morphine Sulfate (morphine) 4 mg Q2 PRN IV SEVERE PAIN LEVEL 7-10 Last administered on 4/19/19at 13:43; Admin Dose 4 MG; Start 10/03/18 at 18:30 KAMILA TERESA Oct 04, 2018 16:58
[2018-10-04 19:15] VITALS: BP 104/61; PULSE 106; RESP 20
[2018-10-05 01:51] VITALS: BP 112/64; PULSE 104; RESP 18
[2018-10-05] MEDS: ONDANSETRON INJ 8 MG in DEXTROSE 5% 50 ML IV PRN (07:38)
[2018-10-05] MEDS: morphine 4 MG/ML VIAL IV PRN ×4 (08:19→22:18)
[2018-10-05 08:25] VITALS: BP 91/51; PULSE 100; RESP 18
[2018-10-05] MEDS: FUROSEMIDE 20 MG TAB PO SCH (09:00)
[2018-10-05] MEDS: OLOPATADINE 0.1% 5 ML OPH BOTH EYES SCH ×2 (09:00→21:00)
[2018-10-05] MEDS: SPIRONOLACTONE 50 MG TAB PO SCH (09:00)
[2018-10-05] MEDS: LIDOCAINE 5% PATCH TD SCH (09:00)
[2018-10-05] MEDS: SODIUM CHLORIDE 1 GM TAB PO SCH ×2 (09:00→09:30)
[2018-10-05] MEDS: POLYETHYLENE GLYCOL 17 GM PACKET PO SCH ×2 (09:29→21:26)
[2018-10-05] MEDS: DOCUSATE SODIUM 100 MG CAP PO SCH ×2 (09:30→21:26)
[2018-10-05] MEDS: oxyCODONE (CR) 10 MG TAB [oxyCONTIN] PO SCH ×2 (09:31→21:27)
[2018-10-05] MEDS: LORATADINE 10 MG TAB PO SCH (09:31)
[2018-10-05] MEDS: ESCITALOPRAM 10 MG TAB PO SCH (09:31)
[2018-10-05] MEDS: ANASTROZOLE 1 MG TAB PO SCH (09:32)
[2018-10-05] MEDS: ENOXAPARIN 40 MG/0.4 ML SYG SC SCH (09:33)
--- NOTE | 2018-10-05 10:45 | CONS ---
Assessment/Plan Assessment/Plan Assessment/Plan (Daily) 2. Hyponatremia, etiology is initially felt to be secondary to hemodynamics, patient's possible heart failure. The patient's sodium levels initially improved with diuretic therapy and free water restriction. Na lower today as pt refused diuretics. repeat urine na and osmolality. Minimize free water intake and monitor closely. 2. Volume overload. Etiology is multifactorial secondary to congestive heart failure. Third spacing. Continue current diuretic regimen, intensify as stated above. 3. Hypokalemia. Continue to monitor. 4. Left breast cancer with metastasis. Continue to monitor. 5. Right hip fracture status post right hip arthroplasty. Continue to monitor. 6. Chronic pain syndrome. Continue current pain regimen. 7. Anemia. Continue to monitor hemoglobin and hematocrit levels. Consultation Date/Type/Reason Admit Date/Time Sep 09, 2018 at 14:53 Initial Consult Date 09/09/18 Requesting Provider: RUSS JEROME MD Date/Time of Note DATE: 10/05/18 TIME: 10:44 24 HR Interval Summary Free Text/Dictation did not receive lasix due to hypotension denies shortness of breath, n/v, diarrhea or dizziness dw rn gen nad cv rrr pulm ctab abd soft, nd, nt +bs ext: + edema Exam/Review of Systems Exam Vitals Vital Signs Date Temp Pulse Resp B/P (MAP) Pulse Ox O2 O2 Flow FiO2 Time Delivery Rate 10/05/18 98.8 100 18 91/51 (64) 91 08:25 10/05/18 2.0 04:43 10/04/18 Nasal 22:10 Cannula Intake and Output 10/04/18 10/04/18 10/05/18 1414:59 22:59 06:59 IntakeIntake Total 240 ml OutputOutput Total 400 ml BalanceBalance 240 ml -400 ml Results Result Diagram: 10/05/18 0453 10/05/18 0453 Results 24hrs Laboratory Tests Test 10/05/18 04:53 White Blood Count 4.4 #L Red Blood Count 2.27 L Hemoglobin 7.2 L Hematocrit 22.5 L Mean Corpuscular Volume 99.1 Mean Corpuscular Hemoglobin 31.7 Mean Corpuscular Hemoglobin Concent 32.0 Red Cell Distribution Width 18.0 H Platelet Count 130 L Mean Platelet Volume 9.7 Immature Granulocytes % 0.200 Neutrophils % 56.9 Lymphocytes % 23.9 Monocytes % 14.9 H Eosinophils % 3.2 Basophils % 0.9 Nucleated Red Blood Cells % 0.0 Immature Granulocytes # 0.010 Neutrophils # 2.5 Lymphocytes # 1.1 Monocytes # 0.7 Eosinophils # 0.1 Basophils # 0.0 Nucleated Red Blood Cells # 0.0 Sodium Level 131 L Potassium Level 4.8 Chloride Level 100 Carbon Dioxide Level 26 Anion Gap 5 Blood Urea Nitrogen 24 H Creatinine 0.77 Est Glomerular Filtrat Rate mL/min > 60 Glucose Level 118 Calcium Level 8.0 L Phosphorus Level 3.2 # Magnesium Level 2.0 Medications Medication Current Medications Acetaminophen (Tylenol Tab) 500 mg Q6H PRN PO MILD PAIN(1-3)OR ELEVATED TEMP Last administered on 09/20/18 22:55; Admin Dose 500 MG; Start 09/09/18 at 22:30 Anastrozole (Arimidex) 1 mg DAILY PO Last administered on 10/05/18 09:32; Admin Dose 1 MG; Start 09/10/18 at 09:00 Carvedilol (Coreg) 3.125 mg BID PO Last administered on 10/01/18 20:26; Admin Dose 3.125 MG; Start 09/09/18 at 22:30 Docusate Sodium (Colace) 200 mg BID PO Last administered on 10/05/18 09:30; Admin Dose 200 MG; Start 09/09/18 at 22:30 Escitalopram Oxalate (Lexapro) 10 mg DAILY PO Last administered on 10/05/18 09:31; Admin Dose 10 MG; Start 09/10/18 at 09:00 Ondansetron HCl (Zofran Tab) 4 mg Q6H PRN PO NAUSEA AND/OR VOMITING Last administered on 10/04/18 05:13; Admin Dose 4 MG; Start 09/09/18 at 22:30 Pantoprazole (Protonix Tab) 40 mg AC BREAKFAST PO Last administered on 09:45; Admin Dose 40 MG; Start 09/10/18 at 07:00 Polyethylene Glycol (Miralax) 17 gm BID PO Last administered on 10/05/18 09:29; Admin Dose 17 GM; Start 09/09/18 at 22:30 Spironolactone (Aldactone) 50 mg DAILY PO Last administered on 10/04/18 09:50; Admin Dose 50 MG; Start 09/13/18 at 18:00 Potassium Chloride (Klor-Con 20) 20 meq BID PO Last administered on 10/01/18 20:23; Admin Dose 20 MEQ; Start 09/15/18 at 21:00; Status Hold Albuterol/ Ipratropium (Duoneb) 3 ml Q8H RESP THERAPY PRN HHN SHORTNESS OF BREATH Last administered on 10/03/18 19:11; Admin Dose 3 ML; Start 09/15/18 at 14:30 Oxycodone HCl (Oxycontin) 20 mg Q12 PO Last administered on 10/05/18 09:31; Admin Dose 20 MG; Start 09/15/18 at 21:00 Olopatadine HCl (Patanol 0.1% Oph) 1 drop BID BOTH EYES Last administered on 09/30/18 21:04; Admin Dose 1 DROP; Start 09/16/18 at 21:00 Loratadine (Claritin) 10 mg DAILY PO Last administered on 10/05/18 09:31; Admin Dose 10 MG; Start 09/17/18 at 09:00 Lidocaine (Lidoderm) 2 patch DAILY TD Last administered on 10/04/18 10:14; Admin Dose 1 PATCH; Start 09/26/18 at 17:30 Furosemide (Lasix) 20 mg DAILY PO Last administered on 10/04/18 09:48; Admin Dose 20 MG; Start 09/29/18 at 09:00 Sodium Chloride (Nacl) 2 gm DAILY PO Last administered on 10/02/18 08:14; Admin Dose 2 GM; Start 10/01/18 at 09:00 Hydromorphone HCl (Dilaudid) 0.4 mg Q2H PRN IV .PAIN 6-10 Last administered on 10/02/18 09:21; Admin Dose 0.4 MG; Start 10/01/18 at 16:30 Nalbuphine HCl (Nubain) 10 mg Q4H PRN IV .PRURITUS; Start 10/01/18 at 16:30 Naloxone HCl (Narcan) 0.2 mg Q2M PRN IV .RESP RATE; Start 10/01/18 at 16:30 Miscellaneous Information (* Miscellaneous Pharmacy Order) DURAMORPH: 0.1 MG SPI... GIVEN NEURAXIAL XX ; Start 10/01/18 at 16:30 Simethicone (Mylicon) 80 mg TID PRN PO .GAS; Start 10/01/18 at 16:30 IV Flush (NS 3 ml) 3 ml per protocol IV ; Start 10/01/18 at 16:30 Enoxaparin Sodium (Lovenox) 40 mg DAILY SC Last administered on 10/05/18at 09:33; Admin Dose 40 MG; Start 10/02/18 at 09:00 Acetaminophen/ Hydrocodone Bitart ([place] (5/325)) 1 tab Q3H PRN PO MODERATE PAIN LEVEL 4-6; Start 10/01/18 at 16:30 Ondansetron HCl 8 mg/Dextrose 54 ml @ 212 mls/hr Q6H PRN IV NAUSEA AND/OR VOMITING Last administered on 10/05/18at 07:38; Admin Dose 212 MLS/HR; Start 10/03/18 at 11:30 Morphine Sulfate (morphine) 4 mg Q2 PRN IV SEVERE PAIN LEVEL 7-10 Last administered on 10/05/18at 08:19; Admin Dose 4 MG; Start 10/03/18 at 18:30 DAMON GUERIN MD Oct 05, 2018 10:45
--- NOTE | 2018-10-05 14:46 | PN ---
Date/Time of Note Date/Time of Note DATE: 10/05/18 TIME: 14:42 Assessment/Plan VTE Prophylaxis Risk score (from Nsg)>0 risk: 13 SCD applied (from Nsg): Yes SCD contraindicated: low risk/ambulating Pharmacological prophylaxis: LMWH Lines/Catheters IV Catheter Type (from Nrsg): Peripheral IV Central line still needed: No Urinary Cath still in place: Yes Reason Cath still needed: urinary retention Assessment/Plan Hospital Course S/p recurrent thoracentesis with re-occultation of fluid. By calculating patient's preoperative risk the patient is in mild to moderate cardiac risk category. Due to of multiple vertebral fractures handling of the patient's body on the operative table must be extremely careful. Extra dose of Lasix will be given now to diurese the patient which looks slightly more congested comparing with the yesterday's white having anasarca. No contraindications to surgery. Assessment/Plan Hemiarthroplasty of the right hip 10/01/[address] Shane. S/p recurrent thoracentesis with re-occultation of fluid. Assessment/Plan 1. PRIMARY ADENOCARCINOMA of the left breast. MULTIPLE BONY METS, PULMONARY METS;LIVER METS CHEMO ON HOLD; PT HAS A VERY GOOD RESPONSE TO CHEMO AND AI 2. Severe pain in the interscapular and lumbar sacral area most probably metastatic lesion possible femoral fracture. pathologic fracture of T9 with 60% of loss of height. Neurosurgical f/u. 3. Obesity. 4. Weight loss 60 pounds during the last 2 years by diet 5. PMS. 6. Myopia. 7. Anemia chronic disease with a drop of her hematocrit to 27; 1 units of pack ed RBC plan to transfuse. Latest results 28. Will recheck tomorrow; Leukopenia.Thrombocytopenia; 8. Anxiety disorder. Claustrophobia. Increase Ativan to 1 mg every 8 as neede d at Lexapro 10 mg daily. 9. Posttraumatic stress disorder. 10. Pain in the left forearm with a history of fracture of ulna and radius. 11. Tachycardia 12. Hypoxemia at night marginal improved after 2 L of nasal cannula oxygen. 13. Deconditioning 14. 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 MRI: 09/28/18:diffuse osseous metastatic disease with multiple pathologic compression fractures at least involving the T4, T5, T7, T9 and T11 levels. There is likely mild cortical breakthrough at several levels resulting in mild central canal narrowing. No gross evidence of cord compression is seen.. 15. Pain syndrome. Today the most painful zone is in the right hip area. 16. Hyponatremia-corrected; hypokalemia now hyperkalemic 5.2 hold potassium p.o. today and hold Aldactone today.Recheck and sodium chloride daily with the dose to 4 mg today 17. Leucopenia-improved. 18. Neutropenia with occasional fever and chills. Last chemotherapy 5 days ago. 19. Hypoalbuminemia. 20.Right sided cp after catheter insertion and correction less discom fort. 21. Decreased edema both lower extremities with [id number]-[id number] with Pleural and Pericardial effusion. 22. pain syndrome 23.bilateral pleural effusions ; s/p left thoracentesis, During the procedure the probe of the u/s was placed to the right side of the chest which showed only minimal amount of liquid on the right pleural cavity. 24. Systolic over diastolic congestive heart failure with a right more than left lower extremity swelling with no DVT in latest venous Doppler. 25. Swelling of the left forearm-persist. Cellulitis of the left forearm with increased edema anteriorly.-Today it is less edematous 26. Pathologic fracture of the right hip;s/p hemiarthroplasty of right hip . Result Diagram: 10/05/18 0453 10/05/18 0453 Results 24hrs Laboratory Tests Test 10/05/18 04:53 10/05/18 11:40 White Blood Count 4.4 #L Red Blood Count 2.27 L Hemoglobin 7.2 L Hematocrit 22.5 L Mean Corpuscular Volume 99.1 Mean Corpuscular Hemoglobin 31.7 Mean Corpuscular Hemoglobin Concent 32.0 Red Cell Distribution Width 18.0 H Platelet Count 130 L Mean Platelet Volume 9.7 Immature Granulocytes % 0.200 Neutrophils % 56.9 Lymphocytes % 23.9 Monocytes % 14.9 H Eosinophils % 3.2 Basophils % 0.9 Nucleated Red Blood Cells % 0.0 Immature Granulocytes # 0.010 Neutrophils # 2.5 Lymphocytes # 1.1 Monocytes # 0.7 Eosinophils # 0.1 Basophils # 0.0 Nucleated Red Blood Cells # 0.0 Sodium Level 131 L Potassium Level 4.8 Chloride Level 100 Carbon Dioxide Level 26 Anion Gap 5 Blood Urea Nitrogen 24 H Creatinine 0.77 Est Glomerular Filtrat Rate mL/min > 60 Glucose Level 118 Calcium Level 8.0 L Phosphorus Level 3.2 # Magnesium Level 2.0 Urine Color YELLOW Urine Clarity CLEAR Urine pH 6.0 Urine Specific [place] 1.012 Urine Ketones NEGATIVE Urine Nitrite NEGATIVE Urine Bilirubin NEGATIVE Urine Urobilinogen 2+ H Urine Leukocyte Esterase 1+ H Urine Microscopic RBC 0 Urine Microscopic WBC 5 Urine Bacteria FEW A Urine Hemoglobin NEGATIVE Urine Osmolality 368 Urine Random Sodium < 13 L Urine Glucose NEGATIVE Urine Total Protein NEGATIVE Subjective 24 Hr Interval Summary Free Text/Dictation right hip area pain better controlled. Constitutional: improved, poor po, requiring O2; No no complaints, No chills, No diaphoresis, No disoriented, No febrile, No requiring IVF, No other Eyes: No no complaints, No pain, No discharge, No redness, No visual change, No other ENT: No no complaints, No bleeding, No pain, No congestion, No discharge, No dysphagia, No sore throat, No other Respiratory: cough, pleuritic pain, shortness of breath; No no complaints, No pain, No sputum, No wheezing, No other Cardiovascular: chest pain, edema, lightheadedness, orthopenea, palpitations; No no complaints, No paroxysmal nocturnal dyspnea, No other Gastrointestinal: constipation, decreased appetite, nausea, vomiting; No no complaints, No pain, No blood, No diarrhea, No flatus, No passing stool, No other Genitourinary: dysuria; No no complaints, No bleeding, No discharge, No flank pain, No hematuria, No other Musculoskeletal: back pain, bone/joint pain Skin: pruritis, rash; No no complaints, No bruising, No erythema, No laceration, No skin lesions, No other Neurologic: dizziness; No no complaints, No confusion, No focal-weakness, No headache, No syncope, No seizure, No other Psychological: anxiety; No no complaints, No nl mood/affect, No confusion, No depression, No suicidal, No other Exam/Review of Systems Exam Vitals Vital Signs Date Temp Pulse Resp B/P (MAP) Pulse Ox O2 O2 Flow FiO2 Time Delivery Rate 10/05/18 98.8 100 18 91/51 (64) 91 08:25 10/05/18 2.0 04:43 10/04/18 Nasal 22:10 Cannula Intake and Output 10/04/18 10/04/18 10/05/18 1515:00 23:00 07:00 IntakeIntake Total 240 ml OutputOutput Total 400 ml 800 ml BalanceBalance 240 ml -400 ml -800 ml Constitutional: alert, oriented, well developed, distress, frail, obese; No non-verbal, No other Psych: anxiety, depression; No no complaints, No nl mood/affect, No confusion, No suicidal, No other Head: normocephalic, atraumatic; No lacerations, No hematomas, No other Eyes: EOMI, nl lids, PERRL; No nl conjunctiva, No nl sclera, No icteric, No fundi, disc, No other ENMT: No nl external ears & nose, No nl lips & teeth, No nl nasal mucosa & septum, No mucosa pink and moist, No intubated, No tympanic membranes, No other Neck: jvd, bruits, thyromegaly, nuchal rigidity; No supple, No non-tender, No masses, No other Respiratory: congested cough, crackles/rales, diminished breath sounds; No clear to auscultation, No normal air movement, No intercostal retraction, No labored breathing, No respirations, No tactile fremitus, No wheezing, No other Cardiovascular: regular rate and rhythm, bruits, systolic murmur; No nl pulses, No diastolic murmur, No edema, No gallop, No irregular rhythm, No jugular venous distention (JVD), No murmurs/extra sounds, No rub, No S3, No S4, No other Gastrointestinal: soft, nl liver, spleen, bowel sounds, distended; No non-tender, No ascites, No firm, No hepatomegaly, No mass, No rebound or guarding, No splenomegaly, No surgical scars, No tender, No other Musculoskeletal: nl gait and stance, joint tenderness, muscle tone, muscle weakness; No nl extremities to inspection, No range of motion, No spine non-tender, No swelling, No other 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: [employer] 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, numbness; No nl mental status, No nl speech, No nl strength, No confused, No DTR's symmetric, No focal weakness, No lethargic, No reflexes, No unresponsive, No other Skin: nl turgor, ecchymosis; No rash or lesions, No diaphoresis, No laceration, No puncture, No other Lymph: nl lymph nodes; No enlarged, No nontender, No other Results Results 24hrs Laboratory Tests Test 10/05/18 04:53 10/05/18 11:40 White Blood Count 4.4 #L Red Blood Count 2.27 L Hemoglobin 7.2 L Hematocrit 22.5 L Mean Corpuscular Volume 99.1 Mean Corpuscular Hemoglobin 31.7 Mean Corpuscular Hemoglobin Concent 32.0 Red Cell Distribution Width 18.0 H Platelet Count 130 L Mean Platelet Volume 9.7 Immature Granulocytes % 0.200 Neutrophils % 56.9 Lymphocytes % 23.9 Monocytes % 14.9 H Eosinophils % 3.2 Basophils % 0.9 Nucleated Red Blood Cells % 0.0 Immature Granulocytes # 0.010 Neutrophils # 2.5 Lymphocytes # 1.1 Monocytes # 0.7 Eosinophils # 0.1 Basophils # 0.0 Nucleated Red Blood Cells # 0.0 Sodium Level 131 L Potassium Level 4.8 Chloride Level 100 Carbon Dioxide Level 26 Anion Gap 5 Blood Urea Nitrogen 24 H Creatinine 0.77 Est Glomerular Filtrat Rate mL/min > 60 Glucose Level 118 Calcium Level 8.0 L Phosphorus Level 3.2 # Magnesium Level 2.0 Urine Color YELLOW Urine Clarity CLEAR Urine pH 6.0 Urine Specific [place] 1.012 Urine Ketones NEGATIVE Urine Nitrite NEGATIVE Urine Bilirubin NEGATIVE Urine Urobilinogen 2+ H Urine Leukocyte Esterase 1+ H Urine Microscopic RBC 0 Urine Microscopic WBC 5 Urine Bacteria FEW A Urine Hemoglobin NEGATIVE Urine Osmolality 368 Urine Random Sodium < 13 L Urine Glucose NEGATIVE Urine Total Protein NEGATIVE Medications Medication Current Medications Acetaminophen (Tylenol Tab) 500 mg Q6H PRN PO MILD PAIN(1-3)OR ELEVATED TEMP Last administered on 09/20/18at 22:55; Admin Dose 500 MG; Start 09/09/18 at 22:30 Anastrozole (Arimidex) 1 mg DAILY PO Last administered on 10/05/18at 09:32; Admin Dose 1 MG; Start 09/10/18 at 09:00 Carvedilol (Coreg) 3.125 mg BID PO Last administered on 10/01/18at 20:26; Admin Dose 3.125 MG; Start 09/09/18 at 22:30 Docusate Sodium (Colace) 200 mg BID PO Last administered on 10/05/18at 09:30; Admin Dose 200 MG; Start 09/09/18 at 22:30 Escitalopram Oxalate (Lexapro) 10 mg DAILY PO Last administered on 10/05/18 09:31; Admin Dose 10 MG; Start 09/10/18 at 09:00 Ondansetron HCl (Zofran Tab) 4 mg Q6H PRN PO NAUSEA AND/OR VOMITING Last administered on 10/04/18 05:13; Admin Dose 4 MG; Start 09/09/18 at 22:30 Pantoprazole (Protonix Tab) 40 mg AC BREAKFAST PO Last administered on 10/04/18 09:45; Admin Dose 40 MG; Start 09/10/18 at 07:00 Polyethylene Glycol (Miralax) 17 gm BID PO Last administered on 10/05/18 09:29; Admin Dose 17 GM; Start 09/09/18 at 22:30 Spironolactone (Aldactone) 50 mg DAILY PO Last administered on 10/04/18 09:50; Admin Dose 50 MG; Start 09/13/18 at 18:00 Potassium Chloride (Klor-Con 20) 20 meq BID PO Last administered on 10/01/18 20:23; Admin Dose 20 MEQ; Start 09/15/18 at 21:00; Status Hold Albuterol/ Ipratropium (Duoneb) 3 ml Q8H RESP THERAPY PRN HHN SHORTNESS OF GRACIELA ATH Last administered on 10/03/18 19:11; Admin Dose 3 ML; Start 09/15/18 at 14:30 Oxycodone HCl (Oxycontin) 20 mg Q12 PO Last administered on 10/05/18 09:31; Admin Dose 20 MG; Start 09/15/18 at 21:00 Olopatadine HCl (Patanol 0.1% Oph) 1 drop BID BOTH EYES Last administered on 09/30/18 21:04; Admin Dose 1 DROP; Start 09/16/18 at 21:00 Loratadine (Claritin) 10 mg DAILY PO Last administered on 10/05/18 09:31; Admin Dose 10 MG; Start 09/17/18 at 09:00 Lidocaine (Lidoderm) 2 patch DAILY TD Last administered on 10/04/18 10:14; Admin Dose 1 PATCH; Start 09/26/18 at 17:30 Furosemide (Lasix) 20 mg DAILY PO Last administered on 10/04/18 09:48; Admin Dose 20 MG; Start 09/29/18 at 09:00 Sodium Chloride (Nacl) 2 gm DAILY PO Last administered on 10/02/18at 08:14; Admin Dose 2 GM; Start 10/01/18 at 09:00 Hydromorphone HCl (Dilaudid) 0.4 mg Q2H PRN IV .PAIN 6-10 Last administered on 10/02/18at 09:21; Admin Dose 0.4 MG; Start 10/01/18 at 16:30 Nalbuphine HCl (Nubain) 10 mg Q4H PRN IV .PRURITUS; Start 10/01/18 at 16:30 Naloxone HCl (Narcan) 0.2 mg Q2M PRN IV .RESP RATE; Start 10/01/18 at 16:30 Miscellaneous Information (* Miscellaneous Pharmacy Order) DURAMORPH: 0.1 MG SPI... GIVEN NEURAXIAL XX ; Start 10/01/18 at 16:30 Simethicone (Mylicon) 80 mg TID PRN PO .GAS; Start 10/01/18 at 16:30 IV Flush (NS 3 ml) 3 ml per protocol IV ; Start 10/01/18 at 16:30 Enoxaparin Sodium (Lovenox) 40 mg DAILY SC Last administered on 10/05/18at 09:33; Admin Dose 40 MG; Start 10/02/18 at 09:00 Acetaminophen/ Hydrocodone Bitart ([place] (5/325)) 1 tab Q3H PRN PO MODERATE PAIN LEVEL 4-6; Start 10/01/18 at 16:30 Ondansetron HCl 8 mg/Dextrose 54 ml @ 212 mls/hr Q6H PRN IV NAUSEA AND/OR VOMITING Last administered on 10/05/18at 07:38; Admin Dose 212 MLS/HR; Start 10/03/18 at 11:30 Morphine Sulfate (morphine) 4 mg Q2 PRN IV SEVERE PAIN LEVEL 7-10 Last administered on 10/05/18at 13:19; Admin Dose 4 MG; Start 10/03/18 at 18:30 RUSS JEROME MD Oct 05, 2018 14:46
--- NOTE | 2018-10-05 15:37 | CONS ---
Consult Date/Type/Reason Admit Date/Time Sep 09, 2018 at 14:53 Initial Consult Date 09/09/18 Requesting Provider: RUSS JEROME MD Date/Time of Note DATE: 10/05/18 TIME: 15:35 Subjective NO acute events - con't gentle diuresis as tolerated - feels better now ROS: No fever, no chills, no nausea, no vomiting, no diarrhea/constipation No recent weight changes No chest pain, no PND, no orthopnea - mild SOB No dizziness, blurred vision No thirst, no heat or cold intolerance Objective Vitals Vital Signs Date Temp Pulse Resp B/P (MAP) Pulse Ox O2 O2 Flow FiO2 Time Delivery Rate 10/05/18 98.8 100 18 91/51 (64) 91 08:25 10/05/18 2.0 04:43 10/04/18 Nasal 22:10 Cannula Intake and Output 10/04/18 10/04/18 10/05/18 1515:00 23:00 07:00 IntakeIntake Total 240 ml OutputOutput Total 400 ml 800 ml BalanceBalance 240 ml -400 ml -800 ml Exam General: WN/WD/NAD, AOx 3 HEENT: Unicetric/atraumatic/EOMI (follows commands) NECK: JVD elevated, no thyromegaly Lymph: no lymphadenopathy HEART: regular with no S3, II/ systolic murmur at apex LUNGS: Coarse sounds ABD: soft, NT, ND, +BS : Intact Neuro: non focal SKIN: chronic changes EXT: 2+ edema + bruising Results/Medications Result Diagram: 10/05/18 0453 10/05/18 0453 Results 24 hrs Laboratory Tests Test 10/05/18 04:53 10/05/18 11:40 White Blood Count 4.4 #L Red Blood Count 2.27 L Hemoglobin 7.2 L Hematocrit 22.5 L Mean Corpuscular Volume 99.1 Mean Corpuscular Hemoglobin 31.7 Mean Corpuscular Hemoglobin Concent 32.0 Red Cell Distribution Width 18.0 H Platelet Count 130 L Mean Platelet Volume 9.7 Immature Granulocytes % 0.200 Neutrophils % 56.9 Lymphocytes % 23.9 Monocytes % 14.9 H Eosinophils % 3.2 Basophils % 0.9 Nucleated Red Blood Cells % 0.0 Immature Granulocytes # 0.010 Neutrophils # 2.5 Lymphocytes # 1.1 Monocytes # 0.7 Eosinophils # 0.1 Basophils # 0.0 Nucleated Red Blood Cells # 0.0 Sodium Level 131 L Potassium Level 4.8 Chloride Level 100 Carbon Dioxide Level 26 Anion Gap 5 Blood Urea Nitrogen 24 H Creatinine 0.77 Est Glomerular Filtrat Rate mL/min > 60 Glucose Level 118 Calcium Level 8.0 L Phosphorus Level 3.2 # Magnesium Level 2.0 Urine Color YELLOW Urine Clarity CLEAR Urine pH 6.0 Urine Specific [place] 1.012 Urine Ketones NEGATIVE Urine Nitrite NEGATIVE Urine Bilirubin NEGATIVE Urine Urobilinogen 2+ H Urine Leukocyte Esterase 1+ H Urine Microscopic RBC 0 Urine Microscopic WBC 5 Urine Bacteria FEW A Urine Hemoglobin NEGATIVE Urine Osmolality 368 Urine Random Sodium < 13 L Urine Glucose NEGATIVE Urine Total Protein NEGATIVE Home Meds Reported Medications Potassium Chloride* (Potassium Chloride*) 20 Meq Tablet.er, 20 MEQ PO DAILY, TAB.SA 09/09/18 Epoetin Cr (Procrit) 4,000 Unit/1 Ml Vial, 4000 UNIT IJ Q FRI, VIAL 7:00AM-7:00PM,HOLD IF HGB>10 09/09/18 Ondansetron Hcl* (Zofran*) 4 Mg Tab, 4 MG PO Q6H PRN for NAUSEA AND OR VOMITING, TAB 08/22/18 Pantoprazole* (Pantoprazole*) 40 Mg Tablet.dr, 40 MG PO AC BREAKFAST, TAB 08/22/18 Oxycodone Hcl* (Oxycontin*) 20 Mg Tab.er.12h, 20 MG PO Q12, TAB 08/22/18 Amlodipine Besylate* (Norvasc*) 5 Mg Tablet, 5 MG PO BID, TAB HOLD FOR SBP <110. 08/22/18 Polyethylene Glycol* (Miralax*) 17 Gm Powd.pack, 17 GM PO BID, #60 PACKET ON -12:00 TO 4:00PM 08/22/18 Magnesium Hydroxide* (Milk Of Magnesia*) 400 Mg/5 Ml Oral.susp, 30 ML PO DAILY, ML 08/22/18 Escitalopram Oxalate* (Lexapro*) 10 Mg Tablet, 10 MG PO DAILY, #30 TAB 08/22/18 Furosemide* (Furosemide*) 20 Mg Tablet, 20 MG PO DAILY, #60 TAB HOLD FOR SBP <110. 08/22/18 Docusate Sodium* (Colace*) 100 Mg Capsule, 200 MG PO BID, #60 CAP 08/22/18 Carvedilol* (Carvedilol*) 3.125 Mg Tablet, 3.125 MG PO BID, #60 TAB HOLD FOR SBP <110 OR UT <60. GIVE WITH FOOD. 08/22/18 Lactose-Free Food (Boost High Protein) 237 Ml Liquid, 120 ML PO BID 08/22/18 Benazepril Hcl* (Benazepril Hcl*) 5 Mg Tablet, 5 MG PO BID, #60 TAB HOLD FOR SBP <110. 08/22/18 Anastrozole* (Arimidex*) 1 Mg Tablet, 1 MG PO DAILY, #30 TAB 08/22/18 Acetaminophen* (Acetaminophen*) 500 MG Extra Strength Tablet, 500 MG PO Q6H PRN for PAIN AND OR ELEVATED TEMP, TAB 08/22/18 Medications Current Medications Acetaminophen (Tylenol Tab) 500 mg Q6H PRN PO MILD PAIN(1-3)OR ELEVATED TEMP Last administered on 09/20/18 22:55; Admin Dose 500 MG; Start 09/09/18 at 22:30 Anastrozole (Arimidex) 1 mg DAILY PO Last administered on 10/05/18 09:32; Admin Dose 1 MG; Start 09/10/18 at 09:00 Carvedilol (Coreg) 3.125 mg BID PO Last administered on 10/01/18 20:26; Admin Dose 3.125 MG; Start 09/09/18 at 22:30 Docusate Sodium (Colace) 200 mg BID PO Last administered on 10/05/18 09:30; Admin Dose 200 MG; Start 09/09/18 at 22:30 Escitalopram Oxalate (Lexapro) 10 mg DAILY PO Last administered on 10/05/18 09:31; Admin Dose 10 MG; Start 09/10/18 at 09:00 Ondansetron HCl (Zofran Tab) 4 mg Q6H PRN PO NAUSEA AND/OR VOMITING Last administered on 10/04/18 05:13; Admin Dose 4 MG; Start 09/09/18 at 22:30 Pantoprazole (Protonix Tab) 40 mg AC BREAKFAST PO Last administered on 10/04/18 09:45; Admin Dose 40 MG; Start 09/10/18 at 07:00 Polyethylene Glycol (Miralax) 17 gm BID PO Last administered on 10/05/18 09:29; Admin Dose 17 GM; Start 09/09/18 at 22:30 Spironolactone (Aldactone) 50 mg DAILY PO Last administered on 10/04/18 09:50; Admin Dose 50 MG; Start 09/13/18 at 18:00 Potassium Chloride (Klor-Con 20) 20 meq BID PO Last administered on 10/01/18 20:23; Admin Dose 20 MEQ; Start 09/15/18 at 21:00; Status Hold Albuterol/ Ipratropium (Duoneb) 3 ml Q8H RESP THERAPY PRN HHN SHORTNESS OF BREATH Last administered on 10/03/18 19:11; Admin Dose 3 ML; Start 09/15/18 at 14:30 Oxycodone HCl (Oxycontin) 20 mg Q12 PO Last administered on 10/05/18 09:31; Admin Dose 20 MG; Start 09/15/18 at 21:00 Olopatadine HCl (Patanol 0.1% Oph) 1 drop BID BOTH EYES Last administered on 09/30/18 21:04; Admin Dose 1 DROP; Start 09/16/18 at 21:00 Loratadine (Claritin) 10 mg DAILY PO Last administered on 10/05/18 09:31; Admin Dose 10 MG; Start 09/17/18 at 09:00 Lidocaine (Lidoderm) 2 patch DAILY TD Last administered on 10/04/18 10:14; Admin Dose 1 PATCH; Start 09/26/18 at 17:30 Furosemide (Lasix) 20 mg DAILY PO Last administered on 10/04/18 09:48; Admin Dose 20 MG; Start 09/29/18 at 09:00 Sodium Chloride (Nacl) 2 gm DAILY PO Last administered on 10/02/18 08:14; Admin Dose 2 GM; Start 10/01/18 at 09:00 Hydromorphone HCl (Dilaudid) 0.4 mg Q2H PRN IV .PAIN 6-10 Last administered on 10/02/18 09:21; Admin Dose 0.4 MG; Start 10/01/18 at 16:30 Nalbuphine HCl (Nubain) 10 mg Q4H PRN IV .PRURITUS; Start 10/01/18 at 16:30 Naloxone HCl (Narcan) 0.2 mg Q2M PRN IV .RESP RATE; Start 10/01/18 at 16:30 Miscellaneous Information (* Miscellaneous Pharmacy Order) DURAMORPH: 0.1 MG SPI... GIVEN NEURAXIAL XX ; Start 10/01/18 at 16:30 Simethicone (Mylicon) 80 mg TID PRN PO .GAS; Start 10/01/18 at 16:30 IV Flush (NS 3 ml) 3 ml per protocol IV ; Start 10/01/18 at 16:30 Enoxaparin Sodium (Lovenox) 40 mg DAILY SC Last administered on 10/05/18at 09:33; Admin Dose 40 MG; Start 10/02/18 at 09:00 Acetaminophen/ Hydrocodone Bitart ([place] (5/325)) 1 tab Q3H PRN PO MODERATE PAIN LEVEL 4-6; Start 10/01/18 at 16:30 Ondansetron HCl 8 mg/Dextrose 54 ml @ 212 mls/hr Q6H PRN IV NAUSEA AND/OR VOMI TING Last administered on 10/05/18at 07:38; Admin Dose 212 MLS/HR; Start 10/03/18 at 11:30 Morphine Sulfate (morphine) 4 mg Q2 PRN IV SEVERE PAIN LEVEL 7-10 Last administered on 10/05/18at 13:19; Admin Dose 4 MG; Start 10/03/18 at 18:30 Assessment/Plan Hospital Course (Demo Recall) 1. Congestive heart failure exacerbation, diastolic by most recent echo, acute on chronic.-neg trop x 3. Echo this admit EF 60/small pericardia effusion - respondiong to diuresis, feels better now - now with increased retention - diffclt to diureses with low BP - better now - con't diuresis as tolerated 2. Hypotension, currently borderline-overall improved - stable - will monitor now - ADVISE TELE - improved hypoxia 3. Anasarca - con;t fluid optimization - responded to diuresis 4. Metastatic breast carcinoma - overall poor prognosis 5. Leukopenia- on meds. 6. Thrombocytopenia.-ongoing - no active bleeding now, H/H stable down to 7.2 - + bruising - Rx with blood rx as needed EMILY NELSON MD Oct 05, 2018 15:37
[2018-10-05 15:38] VITALS: BP_SYST 95; PULSE 104; RESP 18
[2018-10-05 20:19] VITALS: BP 103/74; PULSE 105; RESP 18
[2018-10-06] VITALS (9 sets, daily range): BP systolic 83–130; BP diastolic 50–74; PULSE 100–112; RESP 18
[2018-10-06] MEDS: morphine 4 MG/ML VIAL IV PRN ×4 (02:07→23:26)
[2018-10-06] MEDS: PANTOPRAZOLE (EC) 40 MG TAB PO SCH (05:16)
[2018-10-06] MEDS: OLOPATADINE 0.1% 5 ML OPH BOTH EYES SCH ×2 (09:00→20:58)
[2018-10-06] MEDS: SODIUM CHLORIDE 1 GM TAB PO SCH (09:00)
[2018-10-06] MEDS: POLYETHYLENE GLYCOL 17 GM PACKET PO SCH ×2 (09:11→20:57)
[2018-10-06] MEDS: DOCUSATE SODIUM 100 MG CAP PO SCH ×2 (09:16→20:57)
[2018-10-06] MEDS: SPIRONOLACTONE 50 MG TAB PO SCH (09:16)
[2018-10-06] MEDS: LIDOCAINE 5% PATCH TD SCH (09:16)
[2018-10-06] MEDS: oxyCODONE (CR) 10 MG TAB [oxyCONTIN] PO SCH ×2 (09:17→20:58)
[2018-10-06] MEDS: FUROSEMIDE 20 MG TAB PO SCH ×2 (09:17→18:00)
[2018-10-06] MEDS: LORATADINE 10 MG TAB PO SCH (09:17)
[2018-10-06] MEDS: ESCITALOPRAM 10 MG TAB PO SCH (09:17)
[2018-10-06] MEDS: ANASTROZOLE 1 MG TAB PO SCH (09:20)
[2018-10-06] MEDS: ENOXAPARIN 40 MG/0.4 ML SYG SC SCH (09:21)
--- NOTE | 2018-10-06 11:51 | CONS ---
Consult Date/Type/Reason Admit Date/Time Sep 09, 2018 at 14:53 Initial Consult Date 09/09/18 Requesting Provider: RUSS JEROME MD Date/Time of Note DATE: 10/06/18 TIME: 11:49 Subjective NO acute events - pt comfortable - no CP noted ROS: No fever, no chills, no nausea, no vomiting, no diarrhea/constipation No recent weight changes No chest pain, no PND, no orthopnea + SOB, + malaise No dizziness, blurred vision No thirst, no heat or cold intolerance Objective Vitals Vital Signs Date Temp Pulse Resp B/P (MAP) Pulse Ox O2 O2 Flow FiO2 Time Delivery Rate 10/06/18 102 130/57 09:08 (81) 10/06/18 98.4 18 97 Room Air 07:00 10/05/18 2.0 04:43 Intake and Output 10/05/18 10/05/18 10/06/18 1515:00 23:00 07:00 IntakeIntake Total 654 ml 240 ml OutputOutput Total 700 ml BalanceBalance 654 ml -460 ml Exam General: WN/WD/NAD, AOx 3 HEENT: Unicetric/atraumatic/EOMI (follows commands) NECK: JVD elevated, no thyromegaly Lymph: no lymphadenopathy HEART: regular with no S3, II/ systolic murmur at apex, PMI L LUNGS: Coarse sounds ABD: soft, NT, ND, +BS : Intact Neuro: non focal SKIN: chronic changes EXT: 2+ edema Results/Medications Result Diagram: 10/05/18 0453 10/06/18 0505 Results 24 hrs Laboratory Tests Test 10/06/18 05:05 Sodium Level 133 L Potassium Level 5.1 Chloride Level 102 Carbon Dioxide Level 26 Anion Gap 5 Blood Urea Nitrogen 18 Creatinine 0.62 Est Glomerular Filtrat Rate mL/min > 60 Glucose Level 109 Calcium Level 8.4 Home Meds Reported Medications Potassium Chloride* (Potassium Chloride*) 20 Meq Tablet.er, 20 MEQ PO DAILY, TAB.SA 09/09/18 Epoetin Cr (Procrit) 4,000 Unit/1 Ml Vial, 4000 UNIT IJ Q FRI, VIAL 7:00AM-7:00PM,HOLD IF HGB>10 09/09/18 Ondansetron Hcl* (Zofran*) 4 Mg Tab, 4 MG PO Q6H PRN for NAUSEA AND OR VOMITING, TAB 08/22/18 Pantoprazole* (Pantoprazole*) 40 Mg Tablet.dr, 40 MG PO AC BREAKFAST, TAB 08/22/18 Oxycodone Hcl* (Oxycontin*) 20 Mg Tab.er.12h, 20 MG PO Q12, TAB 08/22/18 Amlodipine Besylate* (Norvasc*) 5 Mg Tablet, 5 MG PO BID, TAB HOLD FOR SBP <110. 08/22/18 Polyethylene Glycol* (Miralax*) 17 Gm Powd.pack, 17 GM PO BID, #60 PACKET ON -12:00 TO 4:00PM 08/22/18 Magnesium Hydroxide* (Milk Of Magnesia*) 400 Mg/5 Ml Oral.susp, 30 ML PO DAILY, ML 08/22/18 Escitalopram Oxalate* (Lexapro*) 10 Mg Tablet, 10 MG PO DAILY, #30 TAB 08/22/18 Furosemide* (Furosemide*) 20 Mg Tablet, 20 MG PO DAILY, #60 TAB HOLD FOR SBP <110. 08/22/18 Docusate Sodium* (Colace*) 100 Mg Capsule, 200 MG PO BID, #60 CAP 08/22/18 Carvedilol* (Carvedilol*) 3.125 Mg Tablet, 3.125 MG PO BID, #60 TAB HOLD FOR SBP <110 OR MI <60. GIVE WITH FOOD. 08/22/18 Lactose-Free Food (Boost High Protein) 237 Ml Liquid, 120 ML PO BID 08/22/18 Benazepril Hcl* (Benazepril Hcl*) 5 Mg Tablet, 5 MG PO BID, #60 TAB HOLD FOR SBP <110. 08/22/18 Anastrozole* (Arimidex*) 1 Mg Tablet, 1 MG PO DAILY, #30 TAB 08/22/18 Acetaminophen* (Acetaminophen*) 500 MG Extra Strength Tablet, 500 MG PO Q6H PRN for PAIN AND OR ELEVATED TEMP, TAB 08/22/18 Medications Current Medications Acetaminophen (Tylenol Tab) 500 mg Q6H PRN PO MILD PAIN(1-3)OR ELEVATED TEMP Last administered on 09/20/18at 22:55; Admin Dose 500 MG; Start 09/09/18 at 22:30 Anastrozole (Arimidex) 1 mg DAILY PO Last administered on 10/06/18 09:20; Admin Dose 1 MG; Start 09/10/18 at 09:00 Carvedilol (Coreg) 3.125 mg BID PO Last administered on 10/01/18 20:26; Admin Dose 3.125 MG; Start 09/09/18 at 22:30 Docusate Sodium (Colace) 200 mg BID PO Last administered on 10/06/18 09:16; Admin Dose 200 MG; Start 09/09/18 at 22:30 Escitalopram Oxalate (Lexapro) 10 mg DAILY PO Last administered on 10/06/18 09:17; Admin Dose 10 MG; Start 09/10/18 at 09:00 Ondansetron HCl (Zofran Tab) 4 mg Q6H PRN PO NAUSEA AND/OR VOMITING Last administered on 10/04/18 05:13; Admin Dose 4 MG; Start 09/09/18 at 22:30 Pantoprazole (Protonix Tab) 40 mg AC BREAKFAST PO Last administered on 10/06/18 05:16; Admin Dose 40 MG; Start 09/10/18 at 07:00 Polyethylene Glycol (Miralax) 17 gm BID PO Last administered on 10/06/18 09:11; Admin Dose 17 GM; Start 09/09/18 at 22:30 Spironolactone (Aldactone) 50 mg DAILY PO Last administered on 10/06/18 09:16; Admin Dose 50 MG; Start 09/13/18 at 18:00 Potassium Chloride (Klor-Con 20) 20 meq BID PO Last administered on 10/01/18 20:23; Admin Dose 20 MEQ; Start 09/15/18 at 21:00; Status Hold Albuterol/ Ipratropium (Duoneb) 3 ml Q8H RESP THERAPY PRN HHN SHORTNESS OF BREATH Last administered on 10/03/18 19:11; Admin Dose 3 ML; Start 09/15/18 at 14:30 Oxycodone HCl (Oxycontin) 20 mg Q12 PO Last administered on 10/06/18 09:17; Admin Dose 20 MG; Start 09/15/18 at 21:00 Olopatadine HCl (Patanol 0.1% Oph) 1 drop BID BOTH EYES Last administered on 09/30/18 21:04; Admin Dose 1 DROP; Start 09/16/18 at 21:00 Loratadine (Claritin) 10 mg DAILY PO Last administered on 10/06/18 09:17; Admin Dose 10 MG; Start 09/17/18 at 09:00 Lidocaine (Lidoderm) 2 patch DAILY TD Last administered on 10/06/18 09:16; Admin Dose 2 PATCH; Start 09/26/18 at 17:30 Furosemide (Lasix) 20 mg DAILY PO Last administered on 10/06/18 09:17; Admin Dose 20 MG; Start 09/29/18 at 09:00 Sodium Chloride (Nacl) 2 gm DAILY PO Last administered on 10/02/18 08:14; Admin Dose 2 GM; Start 10/01/18 at 09:00 Hydromorphone HCl (Dilaudid) 0.4 mg Q2H PRN IV .PAIN 6-10 Last administered on 10/02/18 09:21; Admin Dose 0.4 MG; Start 10/01/18 at 16:30 Nalbuphine HCl (Nubain) 10 mg Q4H PRN IV .PRURITUS; Start 10/01/18 at 16:30 Naloxone HCl (Narcan) 0.2 mg Q2M PRN IV .RESP RATE; Start 10/01/18 at 16:30 Miscellaneous Information (* Miscellaneous Pharmacy Order) DURAMORPH: 0.1 MG SPI... GIVEN NEURAXIAL XX ; Start 10/01/18 at 16:30 Simethicone (Mylicon) 80 mg TID PRN PO .GAS; Start 10/01/18 at 16:30 IV Flush (NS 3 ml) 3 ml per protocol IV ; Start 10/01/18 at 16:30 Enoxaparin Sodium (Lovenox) 40 mg DAILY SC Last administered on 10/06/18 09:21; Admin Dose 40 MG; Start 10/02/18 at 09:00 Acetaminophen/ Hydrocodone Bitart ([place] (5/325)) 1 tab Q3H PRN PO MODERATE PAIN LEVEL 4-6; Start 10/01/18 at 16:30 Ondansetron HCl 8 mg/Dextrose 54 ml @ 212 mls/hr Q6H PRN IV NAUSEA AND/OR VOMITING Last administered on 10/05/18at 07:38; Admin Dose 212 MLS/HR; Start 10/03/18 at 11:30 Morphine Sulfate (morphine) 4 mg Q2 PRN IV SEVERE PAIN LEVEL 7-10 Last administered on 10/06/18at 09:22; Admin Dose 4 MG; Start 10/03/18 at 18:30 Assessment/Plan Hospital Course (Demo Recall) 1. Congestive heart failure exacerbation, diastolic by most recent echo, acute on chronic.-neg trop x 3. Echo this admit EF 60/small pericardia effusion - responding to diuresis, feels better now - now with increased retention - diffclt to diureses with low BP - better now - con't diuresis as tolerated - stable. 2. Hypotension, currently borderline-overall improved - stable - will monitor now - ADVISE TELE - improved hypoxia - treated now. 3. Anasarca - con;t fluid optimization - responded to diuresis 4. Metastatic breast carcinoma - overall poor prognosis - oncology team follows. 5. Leukopenia- on meds. 6. Thrombocytopenia.-ongoing - no active bleeding now, H/H stable down to 7.2 - + bruising - Rx with blood rx as needed EMILY NELSON MD Oct 06, 2018 11:51
--- NOTE | 2018-10-06 12:21 | CONS ---
Assessment/Plan Assessment/Plan Assessment/Plan (Daily) 1. Hyponatremia, etiology is initially felt to be secondary to hemodynamics, patient's possible heart failure. The patient's sodium levels improved with diuretic therapy and free water restriction. repeat Urine studies indicating a possible component of dehydration, but since Na improving on NaCl tablets, aldactone and lasix, will continue for now. Minimize free water intake and monitor closely. 2. Volume overload. Etiology is multifactorial secondary to congestive heart failure. Third spacing. Continue current diuretic regimen, intensify as stated above. 3. Hypokalemia. replace and monitor 4. Left breast cancer with metastasis. Continue to monitor. 5. Right hip fracture status post right hip arthroplasty. Continue to monitor. 6. Chronic pain syndrome. Continue current pain regimen. 7. Anemia. Continue to monitor hemoglobin and hematocrit levels. Consultation Date/Type/Reason Admit Date/Time Sep 09, 2018 at 14:53 Initial Consult Date 09/09/18 Requesting Provider: RUSS JEROME MD Date/Time of Note DATE: 10/06/18 TIME: 12:19 24 HR Interval Summary Free Text/Dictation denies shortness of breath, n/v or urinary issues did take her lasix today d/w rn gen nad cv rrr pulm ctab abd soft, nd, nt +bs ext: edema Exam/Review of Systems Exam Vitals Vital Signs Date Temp Pulse Resp B/P (MAP) Pulse Ox O2 O2 Flow FiO2 Time Delivery Rate 10/06/18 102 130/57 09:08 (81) 10/06/18 98.4 18 97 Room Air 07:00 10/05/18 2.0 04:43 Intake and Output 10/05/18 10/05/18 10/06/18 1515:00 23:00 07:00 IntakeIntake Total 654 ml 240 ml OutputOutput Total 700 ml BalanceBalance 654 ml -460 ml Results Result Diagram: 10/05/18 9583 10/06/18 0505 Results 24hrs Laboratory Tests Test 10/06/18 05:05 Sodium Level 133 L Potassium Level 5.1 Chloride Level 102 Carbon Dioxide Level 26 Anion Gap 5 Blood Urea Nitrogen 18 Creatinine 0.62 Est Glomerular Filtrat Rate mL/min > 60 Glucose Level 109 Calcium Level 8.4 Medications Medication Current Medications Acetaminophen (Tylenol Tab) 500 mg Q6H PRN PO MILD PAIN(1-3)OR ELEVATED TEMP Last administered on 09/20/18 22:55; Admin Dose 500 MG; Start 09/09/18 at 22:30 Anastrozole (Arimidex) 1 mg DAILY PO Last administered on 10/06/18 09:20; Admin Dose 1 MG; Start 09/10/18 at 09:00 Carvedilol (Coreg) 3.125 mg BID PO Last administered on 10/01/18 20:26; Admin Dose 3.125 MG; Start 09/09/18 at 22:30 Docusate Sodium (Colace) 200 mg BID PO Last administered on 10/06/18 09:16; Admin Dose 200 MG; Start 09/09/18 at 22:30 Escitalopram Oxalate (Lexapro) 10 mg DAILY PO Last administered on 10/06/18 09:17; Admin Dose 10 MG; Start 09/10/18 at 09:00 Ondansetron HCl (Zofran Tab) 4 mg Q6H PRN PO NAUSEA AND/OR VOMITING Last administered on 10/04/18 05:13; Admin Dose 4 MG; Start 09/09/18 at 22:30 Pantoprazole (Protonix Tab) 40 mg AC BREAKFAST PO Last administered on 10/06/18 05:16; Admin Dose 40 MG; Start 09/10/18 at 07:00 Polyethylene Glycol (Miralax) 17 gm BID PO Last administered on 10/06/18 09:11; Admin Dose 17 GM; Start 09/09/18 at 22:30 Spironolactone (Aldactone) 50 mg DAILY PO Last administered on 10/06/18 09:16; Admin Dose 50 MG; Start 09/13/18 at 18:00 Potassium Chloride (Klor-Con 20) 20 meq BID PO Last administered on 10/01/18 20:23; Admin Dose 20 MEQ; Start 09/15/18 at 21:00; Status Hold Albuterol/ Ipratropium (Duoneb) 3 ml Q8H RESP THERAPY PRN HHN SHORTNESS OF BREATH Last administered on 10/03/18 19:11; Admin Dose 3 ML; Start 09/15/18 at 14:30 Oxycodone HCl (Oxycontin) 20 mg Q12 PO Last administered on 10/06/18 09:17; Admin Dose 20 MG; Start 09/15/18 at 21:00 Olopatadine HCl (Patanol 0.1% Oph) 1 drop BID BOTH EYES Last administered on 09/30/18 21:04; Admin Dose 1 DROP; Start 09/16/18 at 21:00 Loratadine (Claritin) 10 mg DAILY PO Last administered on 10/06/18 09:17; Admin Dose 10 MG; Start 09/17/18 at 09:00 Lidocaine (Lidoderm) 2 patch DAILY TD Last administered on 10/06/18 09:16; Admin Dose 2 PATCH; Start 09/26/18 at 17:30 Furosemide (Lasix) 20 mg DAILY PO Last administered on 10/06/18 09:17; Admin Dose 20 MG; Start 09/29/18 at 09:00 Sodium Chloride (Nacl) 2 gm DAILY PO Last administered on 10/02/18 08:14; Admin Dose 2 GM; Start 10/01/18 at 09:00 Hydromorphone HCl (Dilaudid) 0.4 mg Q2H PRN IV .PAIN 6-10 Last administered on 10/02/18 09:21; Admin Dose 0.4 MG; Start 10/01/18 at 16:30 Nalbuphine HCl (Nubain) 10 mg Q4H PRN IV .PRURITUS; Start 10/01/18 at 16:30 Naloxone HCl (Narcan) 0.2 mg Q2M PRN IV .RESP RATE; Start 10/01/18 at 16:30 Miscellaneous Information (* Miscellaneous Pharmacy Order) DURAMORPH: 0.1 MG SPI... GIVEN NEURAXIAL XX ; Start 10/01/18 at 16:30 Simethicone (Mylicon) 80 mg TID PRN PO .GAS; Start 10/01/18 at 16:30 IV Flush (NS 3 ml) 3 ml per protocol IV ; Start 10/01/18 at 16:30 Enoxaparin Sodium (Lovenox) 40 mg DAILY SC Last administered on 10/06/18 09:21; Admin Dose 40 MG; Start 10/02/18 at 09:00 Acetaminophen/ Hydrocodone Bitart ([place] (5/325)) 1 tab Q3H PRN PO MODERATE PAIN LEVEL 4-6; Start 4/16/19 at 16:30 Ondansetron HCl 8 mg/Dextrose 54 ml @ 212 mls/hr Q6H PRN IV NAUSEA AND/OR VOMITING Last administered on 10/05/18at 07:38; Admin Dose 212 MLS/HR; Start 10/03/18 at 11:30 Morphine Sulfate (morphine) 4 mg Q2 PRN IV SEVERE PAIN LEVEL 7-10 Last administered on 10/06/18 09:22; Admin Dose 4 MG; Start 10/03/18 at 18:30 DAMON GUERIN MD Oct 06, 2018 12:21
--- NOTE | 2018-10-06 13:00 | PN ---
Date/Time of Note Date/Time of Note DATE: 10/06/18 TIME: 12:54 Assessment/Plan VTE Prophylaxis Risk score (from Ns)>0 risk: 9 SCD applied (from Ns): Yes Pharmacological prophylaxis: LMWH, other (Hold for today and tomorrow recheck H&H continue intermittent pressure stocking to both lower extremities.) Pharm contraindication: bleeding Lines/Catheters IV C[facility]ter Type (from [facility]): Peripheral IV Central line still needed: No Urinary Cath still in place: Yes Reason Cath still needed: urinary retention Assessment/Plan Hospital Course S/p recurrent thoracentesis with re-occultation of fluid. By calculating patient's preoperative risk the patient is in mild to moderate cardiac risk category. Due to of multiple vertebral fractures handling of the patient's body on the operative table must be extremely careful. Extra dose of Lasix will be given now to diurese the patient which looks slightly more congested comparing with the yesterday's white having anasarca. No contraindications to surgery. Assessment/Plan S/p recurrent thoracentesis with re-occultation of fluid. By calculating p atient's preoperative risk the patient is in mild to moderate cardiac risk category. Due to of multiple vertebral fractures handling of the patient's body on the operative table must be extremely careful. Extra dose of Lasix will be given now to diurese the patient which looks slightly more congested comparing with the yesterday's white having anasarca. No contraindications to surgery. Assessment/Plan Hemiarthroplasty of the right hip 10/01/[address] Shane. S/p recurrent thoracentesis with re-occultation of fluid. Assessment/Plan 1. PRIMARY ADENOCARCINOMA of the left breast. MULTIPLE BONY METS, PULMONARY METS;LIVER METS CHEMO ON HOLD; PT HAS A VERY GOOD RESPONSE TO CHEMO AND AI 2. Severe pain in the interscapular and lumbar sacral area most probably metastatic lesion possible femoral fracture. pathologic fracture of T9 with 60% of loss of height. Neurosurgical f/u. 3. Obesity. 4. Weight loss 60 pounds during the last 2 years by diet 5. PMS. 6. Myopia. 7. Anemia chronic disease with a drop of her hematocrit to 27; 1 units of packed RBC plan to transfuse. Latest results 28. Will recheck tomorrow; Leukopenia.Thrombocytopenia; 8. Anxiety disorder. Claustrophobia. Increase Ativan to 1 mg every 8 as needed at Lexapro 10 mg daily. 9. Posttraumatic stress disorder. 10. Pain in the left forearm with a history of fracture of ulna and radius. 11. Tachycardia 12. Hypoxemia at night marginal improved after 2 L of nasal cannula oxygen. 13. Deconditioning 14. 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 MRI: 09/28/18:diffuse osseous metastatic disease with multiple pathologic compression fractures at least involving the T4, T5, T7, T9 and T11 levels. There is likely mild cortical breakthrough at several levels resulting in mild central canal narrowing. No gross evidence of cord compression is seen.. 15. Pain syndrome. Today the most painful zone is in the right hip area. 16. Hyponatremia-corrected; hypokalemia now hyperkalemic 5.2 hold potassium p.o. today and hold Aldactone today.Recheck and sodium chloride daily with the dose to 4 mg today 17. Leucopenia-improved. 18. Neutropenia with occasional fever and chills. Last chemotherapy 5 days ago. 19. Hypoalbuminemia. 20.Right sided cp after catheter insertion and correction less discomfort. 21. Decreased edema both lower extremities with [id number] with Pleural and Pericardial effusion. 22. pain syndrome 23.bilateral pleural effusions ; s/p left thoracentesis, During the procedure the probe of the u/s was placed to the right side of the chest which showed only minimal amount of liquid on the right pleural cavity. 24. Systolic over diastolic congestive heart failure with a right more than left lower extremity swelling with no DVT in latest venous Doppler. 25. Swelling of the left forearm-persist. Cellulitis of the left forearm with increased edema anteriorly.-Today it is less edematous 26. Pathologic fracture of the right hip;s/p hemiarthroplasty of right hip . Result Diagram: 10/05/18 0453 10/06/18 0505 Results 24hrs Laboratory Tests Test 10/06/18 05:05 Sodium Level 133 L Potassium Level 5.1 Chloride Level 102 Carbon Dioxide Level 26 Anion Gap 5 Blood Urea Nitrogen 18 Creatinine 0.62 Est Glomerular Filtrat Rate mL/min > 60 Glucose Level 109 Calcium Level 8.4 Subjective 24 Hr Interval Summary Free Text/Dictation Nausea, shortness of breath, right hip pain I feel my left leg is today more swollen than yesterday. I am able to hold quality 1015 m with the help of her PT. discussed with the patient the plan of transferring to the rehabilitation unit. She is not using the right lower lower extremity as she was used before the surgery due to weakness and pain. Subjective hx not possible: pt non-verbal Constitutional: improved, diaphoresis, disoriented, poor po, requiring O2 Eyes: No no complaints, No pain, No discharge, No redness, No visual change, No other ENT: congestion, dysphagia; No no complaints, No bleeding, No pain, No discharge, No sore throat, No other Respiratory: cough, pleuritic pain, shortness of breath; No no complaints, No pain, No sputum, No wheezing, No other Cardiovascular: chest pain, edema; No no complaints, No lightheadedness, No orthopenea, No palpitations, No paroxysmal nocturnal dyspnea, No other Gastrointestinal: constipation, decreased appetite, flatus, nausea, passing stool, vomiting; No no complaints, No pain, No blood, No diarrhea, No other Genitourinary: dysuria, flank pain; No no complaints, No bleeding, No discharge, No hematuria, No other Musculoskeletal: back pain, bone/joint pain, neck pain, other (Right hip pain persists patient states that she is able to tolerate. And relatively pain-free for about 4 hours after each she is asking for injection the. We discussed that T3 and a half for 4 and half 25 hours is much she tolerates to continue and she agreed and she is trying to do her best.); No no complaints, No restricted range of motion, No swelling Skin: No no complaints, No bruising, No erythema, No laceration, No pruritis, No rash, No skin lesions, No other Neurologic: dizziness, headache; No no complaints, No confusion, No focal-weakness, No syncope, No seizure, No other Lymphatic: No no complaints, No adenopathy, No tender nodes, No lymphadema, No other Psychological: anxiety; No no complaints, No nl mood/affect, No confusion, No depression, No suicidal , No other Immunologic: No no complaints, No immunodeficiency, No pruritis, No rhinitis, No urticaria, No other Exam/Review of Systems Exam Vitals Vital Signs Date Temp Pulse Resp B/P (MAP) Pulse Ox O2 O2 Flow FiO2 Time Delivery Rate 10/06/18 102 130/57 09:08 (81) 10/06/18 98.4 18 97 Room Air 07:00 10/05/18 2.0 04:43 Intake and Output 10/05/18 10/05/18 10/06/18 1515:00 23:00 07:00 IntakeIntake Total 654 ml 240 ml OutputOutput Total 700 ml BalanceBalance 654 ml -460 ml Constitutional: alert, oriented, well developed, frail, obese, other (During conversation she is becoming sleepy she just an hour ago received another dose of morphine sulfate after closing the eyes about 10-15 seconds she is opening them on the conversation medication is going Rosa.); No non-verbal, No distress Psych: no complaints, anxiety, depression; No nl mood/affect, No confusion, No suicidal, No other Head: normocephalic, atraumatic; No lacerations, No hematomas, No other Eyes: EOMI, nl lids, PERRL, icteric; No nl conjunctiva, No nl sclera, No fundi, disc, No other ENMT: nl nasal mucosa & septum, mucosa pink and moist; No nl external ears & nose, No nl lips & teeth, No intubated, No tympanic membranes, No other Neck: jvd, bruits, thyromegaly, nuchal rigidity; No supple, No non-tender, No masses, No other Respiratory: normal air movement, congested cough, diminished breath sounds, tactile fremitus, other (Dry cough.); No clear to auscultation, No crackles/rales, No intercostal retraction, No la bored breathing, No respirations, No wheezing Cardiovascular: regular rate and rhythm, nl pulses, bruits, edema (Edema of left lower extremity 2 days bigger than yesterday), murmurs/extra sounds, systolic murmur, other (Edema of left lower extremity today is more prominent than yesterday edema of right lower extremity pulses 2+); No diastolic murmur, No gallop, No irregular rhythm, No jugular venous distention (JVD), No rub, No S3, No S4 Gastrointestinal: soft, nl liver, spleen, bowel sounds, distended, hepatomegaly, rebound or guarding; No non-tender, No ascites, No firm, No mass, No splenomegaly, No surgical scars, No tender, No other Genitourinary - Female: nl adnexae, nl external genitalia; No CMT, No CVA tenderness, No uterus, No other Musculoskeletal: joint tenderness, muscle tone, muscle weakness ( healing); No nl extremities to inspection, No nl gait and stance, No range of motion, N o spine non-tender, No swelling, No other Extremities: normal pulses, edema; No calf tenderness, No cyanosis, No clubbing, No pitting pedal edema, No palpable cord, No tenderness, No other 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: MANUAL TESTER 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, nl strength, numbness (Decreased); No nl mental status, No nl speech, No confused, No DTR's symmetric, No focal weakness, No lethargic, No reflexes, No unresponsive, No other Skin: No nl turgor, No rash or lesions, No diaphoresis, No ecchymosis, No laceration, No puncture, No other Lymph: No nl lymph nodes, No enlarged, No nontender, No other Results Results 24hrs Laboratory Tests Test 10/06/18 05:05 Sodium Level 133 L Potassium Level 5.1 Chloride Level 102 Carbon Dioxide Level 26 Anion Gap 5 Blood Urea Nitrogen 18 Creatinine 0.62 Est Glomerular Filtrat Rate mL/min > 60 Glucose Level 109 Calcium Level 8.4 Medications Medication Current Medications Acetaminophen (Tylenol Tab) 500 mg Q6H PRN PO MILD PAIN(1-3)OR ELEVATED TEMP Last administered on 09/20/18 22:55; Admin Dose 500 MG; Start 09/09/18 at 22:30 Anastrozole (Arimidex) 1 mg DAILY PO Last administered on 10/06/18 09:20; Admin Dose 1 MG; Start 09/10/18 at 09:00 Carvedilol (Coreg) 3.125 mg BID PO Last administered on 10/01/18 20:26; Admin Dose 3.125 MG; Start 09/09/18 at 22:30 Docusate Sodium (Colace) 200 mg BID PO Last administered on 10/06/18 09:16; Admin Dose 200 MG; Start 09/09/18 at 22:30 Escitalopram Oxalate (Lexapro) 10 mg DAILY PO Last administered on 10/06/18 09:17; Admin Dose 10 MG; Start 09/10/18 at 09:00 Pantoprazole (Protonix Tab) 40 mg AC BREAKFAST PO Last administered on 10/06/18 05:16; Admin Dose 40 MG; Start 09/10/18 at 07:00 Polyethylene Glycol (Miralax) 17 gm BID PO Last administered on 10/06/18 09:11; Admin Dose 17 GM; Start 09/09/18 at 22:30 Spironolactone (Aldactone) 50 mg DAILY PO Last administered on 10/06/18 09:16; Admin Dose 50 MG; Start 09/13/18 at 18:00 Potassium Chloride (Klor-Con 20) 20 meq BID PO Last administered on 10/01/18 20:23; Admin Dose 20 MEQ; Start 09/15/18 at 21:00; Status Hold Albuterol/ Ipratropium (Duoneb) 3 ml Q8H RESP THERAPY PRN HHN SHORTNESS OF BREATH Last administered on 10/03/18 19:11; Admin Dose 3 ML; Start 09/15/18 at 14:30 Oxycodone HCl (Oxycontin) 20 mg Q12 PO Last administered on 10/06/18 09:17; Admin Dose 20 MG; Start 09/15/18 at 21:00 Olopatadine HCl (Patanol 0.1% Oph) 1 drop BID BOTH EYES Last administered on 09/30/18 21:04; Admin Dose 1 DROP; Start 09/16/18 at 21:00 Loratadine (Claritin) 10 mg DAILY PO Last administered on 10/06/18 09:17; Admin Dose 10 MG; Start 09/17/18 at 09:00 Lidocaine (Lidoderm) 2 patch DAILY TD Last administered on 10/06/18 09:16; Admin Dose 2 PATCH; Start 09/26/18 at 17:30 Hydromorphone HCl (Dilaudid) 0.4 mg Q2H PRN IV .PAIN 6-10 Last administered on 10/02/18 09:21; Admin Dose 0.4 MG; Start 10/01/18 at 16:30 Nalbuphine HCl (Nubain) 10 mg Q4H PRN IV .PRURITUS; Start 10/01/18 at 16:30 Naloxone HCl (Narcan) 0.2 mg Q2M PRN IV .RESP RATE; Start 10/01/18 at 16:30 Miscellaneous Information (* Miscellaneous Pharmacy Order) DURAMORPH: 0.1 MG SPI... GIVEN NEURAXIAL XX ; Start 10/01/18 at 16:30 Simethicone (Mylicon) 80 mg TID PRN PO .GAS; Start 10/01/18 at 16:30 IV Flush (NS 3 ml) 3 ml per protocol IV ; Start 10/01/18 at 16:30 Enoxaparin Sodium (Lovenox) 40 mg DAILY SC Last administered on 10/06/18at 09:21; Admin Dose 40 MG; Start 10/02/18 at 09:00 Ondansetron HCl 8 mg/Dextrose 54 ml @ 212 mls/hr Q6H PRN IV NAUSEA AND/OR VOMITING Last administered on 10/05/18at 07:38; Admin Dose 212 MLS/HR; Start 10/03/18 at 11:30 Morphine Sulfate (morphine) 4 mg Q2 PRN IV SEVERE PAIN LEVEL 7-10 Last administered on 10/06/18at 09:22; Admin Dose 4 MG; Start 10/03/18 at 18:30 Furosemide (Lasix) 20 mg BID PO ; Start 10/06/18 at 21:00; Status UNV Sodium Chloride (Nacl) 4 gm DAILY PO ; Start 10/07/18 at 09:00; Status UNV Ferric Sodium Gluconate Complex 125 mg/Sodium Chloride 110 ml @ 110 mls/hr DAILY@1300 IVPB ; Start 10/06/18 at 13:00; Stop 10/10/18 at 13:59; Status UNV Sodium Phosphate 30 mmol/Sodium Chloride 260 ml @ 65 mls/hr DAILY IVPB ; Start 10/06/18 at 13:00; Stop 10/08/18 at 09:00; Status UNV RUSS JEROME MD Oct 06, 2018 13:00
[2018-10-06] MEDS: ALBUMIN HUMAN 25% 100 ML IV SCH ×2 (15:58→22:30)
[2018-10-06] MEDS: SOD FERRIC GLUC COMPLX 125 MG in SOD CHLORIDE 0.9% 100 ML IVPB SCH (17:24)
[2018-10-07] VITALS (10 sets, daily range): BP systolic 97–114; BP diastolic 53–65; PULSE 85–104; RESP 16–19
[2018-10-07] MEDS: morphine 4 MG/ML VIAL IV PRN ×4 (04:12→21:00)
[2018-10-07] MEDS: ALBUMIN HUMAN 25% 100 ML IV SCH ×3 (05:42→22:17)
[2018-10-07] MEDS: PANTOPRAZOLE (EC) 40 MG TAB PO SCH (05:43)
[2018-10-07] MEDS: FUROSEMIDE 20 MG TAB PO SCH (05:43)
[2018-10-07] MEDS: LIDOCAINE 5% PATCH TD SCH (09:00)
[2018-10-07] MEDS ORDERED: SODIUM CHLORIDE 1 GM TAB PO SCH (09:00)
--- NOTE | 2018-10-07 09:19 | PN ---
DATE: 10/07/2018 SUBJECTIVE: The patient is stable, remains volume overloaded. The patient continues to have pain. No other events noted. OBJECTIVE: VITAL SIGNS: Blood pressure is 112/58, pulse 91, respiration 18, temperature 98.7. HEENT: Head is normocephalic. NECK: Supple. HEART: Regular rate. LUNGS: Show diminished breath sounds at the base. ABDOMEN: Soft, nontender to palpation. No rebound or guarding. EXTREMITIES: Negative for clubbing, cyanosis. Positive edema. DERMATOLOGIC: No rashes. MUSCULOSKELETAL: No joint effusions. NEUROLOGIC: No change in exam. MEDICATIONS: The patient's medications are reviewed. LABORATORY DATA: From 10/06/2018 was reviewed. ASSESSMENT AND PLAN: 1. Hyponatremia, etiology was initially felt to be secondary to hemodynamics, possible heart failure . The patient's sodium levels improved with diuretics and free water restriction. A repeat urine st udies have been reviewed. At this point, will continue current treatment plan. Continue salt tablet s. Continue diuretic therapy and continue Aldactone. Monitor closely. Minimize free water intake. 2. Volume overload. ADLs are multifactorial secondary to congestive heart failure, third spacing. C ontinue diuretic therapy. 3. Hypokalemia. Continue to monitor and replete. 4. Left breast cancer with metastasis. Continue to monitor. 5. Right hip fracture, status post arthroplasty. Continue to monitor. Continue physical therapy. 6. Chronic pain syndrome. Continue current pain regimen. 7. Anemia. Monitor hemoglobin and hematocrit levels. Dictated By: ANDRÉS YO/NTS Conf#: [id number] DID#: [id number] CC: RUSS JEROME MD;*EndCC*
[2018-10-07] MEDS: SODIUM PHOSPHATE 30 MMOL in SOD CHLORIDE 0.9% 250 ML IVPB SCH ×2 (09:33→09:37)
[2018-10-07] MEDS: OLOPATADINE 0.1% 5 ML OPH BOTH EYES SCH ×2 (09:36→21:42)
[2018-10-07] MEDS: ESCITALOPRAM 10 MG TAB PO SCH (09:40)
[2018-10-07] MEDS: oxyCODONE (CR) 10 MG TAB [oxyCONTIN] PO SCH ×2 (09:40→21:43)
[2018-10-07] MEDS: SPIRONOLACTONE 50 MG TAB PO SCH (09:40)
[2018-10-07] MEDS: DOCUSATE SODIUM 100 MG CAP PO SCH ×2 (09:40→21:42)
[2018-10-07] MEDS: LORATADINE 10 MG TAB PO SCH (09:41)
[2018-10-07] MEDS: POLYETHYLENE GLYCOL 17 GM PACKET PO SCH ×2 (09:42→21:00)
[2018-10-07] MEDS: ANASTROZOLE 1 MG TAB PO SCH (09:45)
--- NOTE | 2018-10-07 12:26 | CONS ---
Assessment/Plan Assessment/Plan Hospital Course (Demo Recall) IMPRESSION: 1. Congestive heart failure exacerbation, diastolic by most recent echo, acute on chronic.-neg trop x 3. Echo this admit EF 60/small pericardial effusion 2. Hypotension, currently low 3. Anasarca-improved s/p additional albumin doses 4. Metastatic breast carcinoma. 5. Leukopenia. 6. Thrombocytopenia.-ongoing 7. Pericardial effusion-small by echo with no HD consequence at this time 8. Pleural effusions-recurrent. Initial cytology negative. ? PLeurodesis 9. R femoral head pathologic fracture now post-op s/p ORIF 10/02/18 10. [id number] requiring transfusion 11.Tachycardia-S tach by ecg 10/03. Likley driven by pain/discomfort Recc: -On med-surg -Patient with apparent refracture of leg today when transferring from [facility] -Continue Lasix diuresis and make increase given worsening LE edema -Holding additional IVF at the time -folllow K clsoely now on aldactone at this time -Continue arimidex -Follow NA on salt tabs -coreg as tolerated only -F/U cytology from thoracentesis -Pain control Consultation Date/Type/Reason Admit Date/Time Sep 09, 2018 at 14:53 Initial Consult Date 09/09/18 Type of Consult Cardiology Reason for Consultation CHF Requesting Provider: RUSS JEROME MD Date/Time of Note DATE: 10/07/18 TIME: 12:23 Exam/Review of Systems Vital Signs Vitals Vital Signs Date Temp Pulse Resp B/P (MAP) Pulse Ox O2 O2 Flow FiO2 Time Delivery Rate 10/07/18 98.7 91 18 112/58 93 07:50 (76) 10/07/18 Room Air 04:15 10/05/18 2.0 04:43 Intake and Output 10/06/18 10/06/18 10/07/18 1515:00 23:00 07:00 IntakeIntake Total 1510 ml 1000 ml OutputOutput Total 300 ml 601 ml BalanceBalance -300 ml 909 ml 1000 ml Exam Exam Review of Systems: CONSTITUTIONAL: No fevers, chills. PULMONARY: ongoing sob CARDIOVASCULAR: No chest pain/palpitations GASTROINTESTINAL: No nausea/vomiting. GENITOURINARY: No hematuria/dysuria. MUSCULOSKELETAL: No myagias/arthalgias. PSYCHIATRIC: The patient denies depression. NEUROLOGIC: No weakness Constitutional: alert Psych: no complaints Head: normocephalic ENMT: mucosa pink and moist Neck: supple, jvd (9-10 cm water) Respiratory: diminished breath sounds (at bases/B) Cardiovascular: regular rate and rhythm Gastrointestinal: soft, non-tender Musculoskeletal: muscle weakness (mild generalized) Extremities: pitting pedal edema (bilateral) 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: other (no focal deficits) Labs Result Diagram: 10/05/18 0453 10/06/18 0505 Medications Medications Current Medications Acetaminophen (Tylenol Tab) 500 mg Q6H PRN PO MILD PAIN(1-3)OR ELEVATED TEMP Last administered on 09/20/18 22:55; Admin Dose 500 MG; Start 09/09/18 at 22:30 Anastrozole (Arimidex) 1 mg DAILY PO Last administered on 10/07/18 09:45; Admin Dose 1 MG; Start 09/10/18 at 09:00 Carvedilol (Coreg) 3.125 mg BID PO Last administered on 10/07/18 09:41; Admin Dose 3.125 MG; Start 09/09/18 at 22:30 Docusate Sodium (Colace) 200 mg BID PO Last administered on 10/07/18 09:40; Admin Dose 200 MG; Start 09/09/18 at 22:30 Escitalopram Oxalate (Lexapro) 10 mg DAILY PO Last administered on 10/07/18 09:40; Admin Dose 10 MG; Start 09/10/18 at 09:00 Pantoprazole (Protonix Tab) 40 mg AC BREAKFAST PO Last administered on 10/07/18 05:43; Admin Dose 40 MG; Start 09/10/18 at 07:00 Polyethylene Glycol (Miralax) 17 gm BID PO Last administered on 10/07/18 09:42; Admin Dose 17 GM; Start 09/09/18 at 22:30 Spironolactone (Aldactone) 50 mg DAILY PO Last administered on 10/07/18 09:40; Admin Dose 50 MG; Start 09/13/18 at 18:00 Potassium Chloride (Klor-Con 20) 20 meq BID PO Last administered on 10/01/18 20:23; Admin Dose 20 MEQ; Start 09/15/18 at 21:00; Status Hold Albuterol/ Ipratropium (Duoneb) 3 ml Q8H RESP THERAPY PRN HHN SHORTNESS OF BREATH Last administered on 10/03/18 19:11; Admin Dose 3 ML; Start 09/15/18 at 14:30 Oxycodone HCl (Oxycontin) 20 mg Q12 PO Last administered on 10/07/18 09:40; Admin Dose 20 MG; Start 09/15/18 at 21:00 Olopatadine HCl (Patanol 0.1% Oph) 1 drop BID BOTH EYES Last administered on 10/07/18 09:36; Admin Dose 1 DROP; Start 09/16/18 at 21:00 Loratadine (Claritin) 10 mg DAILY PO Last administered on 10/07/18 09:41; Admin Dose 10 MG; Start 09/17/18 at 09:00 Lidocaine (Lidoderm) 2 patch DAILY TD Last administered on 10/06/18 09:16; Admin Dose 2 PATCH; Start 09/26/18 at 17:30 Hydromorphone HCl (Dilaudid) 0.4 mg Q2H PRN IV .PAIN 6-10 Last administered on 10/02/18 09:21; Admin Dose 0.4 MG; Start 10/01/18 at 16:30 Nalbuphine HCl (Nubain) 10 mg Q4H PRN IV .PRURITUS; Start 10/01/18 at 16:30 Naloxone HCl (Narcan) 0.2 mg Q2M PRN IV .RESP RATE; Start 10/01/18 at 16:30 Miscellaneous Information (* Miscellaneous Pharmacy Order) DURAMORPH: 0.1 MG SPI... GIVEN NEURAXIAL XX ; Start 10/01/18 at 16:30 Simethicone (Mylicon) 80 mg TID PRN PO .GAS; Start 10/01/18 at 16:30 IV Flush (NS 3 ml) 3 ml per protocol IV ; Start 10/01/18 at 16:30 Ondansetron HCl 8 mg/Dextrose 54 ml @ 212 mls/hr Q6H PRN IV NAUSEA AND/OR VOMITING Last administered on 10/05/18 07:38; Admin Dose 212 MLS/HR; Start 10/03/18 at 11:30 Morphine Sulfate (morphine) 4 mg Q2 PRN IV SEVERE PAIN LEVEL 7-10 Last administered on 10/07/18 09:37; Admin Dose 4 MG; Start 10/03/18 at 18:30 Furosemide (Lasix) 20 mg BID DIURETICS PO Last administered on 10/07/18at 05:43; Admin Dose 20 MG; Start 10/06/18 at 18:00 Sodium Chloride (Nacl) 4 gm DAILY PO Last administered on 10/07/18at 09:42; Admin Dose 4 GM; Start 10/07/18 at 09:00 Ferric Sodium Gluconate Complex 125 mg/Sodium Chloride 110 ml @ 110 mls/hr DAILY@1300 IVPB Last administered on 10/06/18at 17:24; Admin Dose 110 MLS/HR; Start 10/06/18 at 14:30; Stop 10/10/18 at 13:59 Sodium Phosphate 30 mmol/Sodium Chloride 260 ml @ 65 mls/hr DAILY IVPB Last administered on 10/07/18at 09:37; Admin Dose 65 MLS/HR; Start 10/06/18 at 15:00; Stop 10/08/18 at 14:59 Albumin Human 100 ml @ 100 mls/hr Q8H IV Last administered on 10/07/18 05:42; Admin Dose 100 MLS/HR; Start 10/06/18 at 14:30; Stop 10/08/18 at 14:29 KAMILA TERESA Oct 07, 2018 12:26
[2018-10-07] MEDS: SOD FERRIC GLUC COMPLX 125 MG in SOD CHLORIDE 0.9% 100 ML IVPB SCH (14:05)
--- NOTE | 2018-10-07 14:21 | PN ---
Date/Time of Note Date/Time of Note DATE: 10/07/18 TIME: 14:21 Assessment/Plan VTE Prophylaxis Risk score (from Nsg)>0 risk: 12 SCD applied (from Nsg): Yes SCD contraindicated: low risk/ambulating Pharmacological prophylaxis: LMWH Lines/Catheters IV Catheter Type (from Nrsg): Peripheral IV Central line still needed: No Urinary Cath still in place: Yes Reason Cath still needed: urinary retention Assessment/Plan Hospital Course S/p recurrent thoracentesis with re-occultation of fluid. By calculating patient's preoperative risk the patient is in mild to moderate cardiac risk category. Due to of multiple vertebral fractures handling of the patient's body on the operative table must be extremely careful. Extra dose of Lasix will be given now to diurese the patient which looks slightly more congested comparing with the yesterday's white having anasarca. No contraindications to surgery. Assessment/Plan S/p recurrent thoracentesis with re-occultation of fluid. By calculating patient's preoperative risk the patient is in mild to moderate cardiac risk category. Due to of multiple vertebral fractures handling of the patient's body on the operative table must be extremely careful. Extra dose of Lasix will be given now to diurese the patient which looks slightly more congested comparing with the yesterday's white having anasarca. No contraindications to surgery. Assessment/Plan S/p recurrent thoracentesis with re-occultation of fluid. By calculating pa tient's preoperative risk the patient is in mild to moderate cardiac risk category. Due to of multiple vertebral fractures handling of the patient's body on the operative table must be extremely careful. Extra dose of Lasix will be given now to diurese the patient which looks slightly more congested comparing with the yesterday's white having anasarca. No contraindications to surgery. Assessment/Plan Hemiarthroplasty of the right hip 10/01/[address] Shane. S/p recurrent thoracentesis with re-occultation of fluid. Assessment/Plan 1. PRIMARY ADENOCARCINOMA of the left breast. MULTIPLE BONY METS, PULMONARY METS;LIVER METS CHEMO ON HOLD; PT HAS A VERY GOOD RESPONSE TO CHEMO AND AI 2. Severe pain in the interscapular and lumbar sacral area most probably metastatic lesion possible femoral fracture. pathologic fracture of T9 with 60% of loss of height. Neurosurgical f/u. 3. Obesity. 4. Weight loss 60 pounds during the last 2 years by diet 5. PMS. 6. Myopia. 7. Anemia chronic disease with a drop of her hematocrit to 27; 1 units of packed RBC plan to transfuse. Latest results 28. Will recheck tomorrow; Leukopenia.Thrombocytopenia; 8. Anxiety disorder. Claustrophobia. Increase Ativan to 1 mg every 8 as needed at Lexapro 10 mg daily. 9. Posttraumatic stress disorder. 10. Pain in the left forearm with a history of fracture of ulna and radius. 11. Tachycardia 12. Hypoxemia at night marginal improved after 2 L of nasal cannula oxygen. 13. Deconditioning 14. 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 MRI: 09/28/18:diffuse osseous metastatic disease with multiple pathologic compression fractures at least involving the T4, T5, T7, T9 and T11 levels. There is likely mild cortical breakthrough at several levels resulting in mild central canal narrowing. No gross evidence of cord compression is seen.. 15. Pain syndrome. Today the most painful zone is in the right hip area. 16. Hyponatremia-corrected; hypokalemia now hyperkalemic 5.2 hold potassium p.o. today and hold Aldactone today.Recheck and sodium chloride daily with the dose to 4 mg today 17. Leucopenia-improved. 18. Neutropenia with occasional fever and chills. Last chemotherapy 5 days ago. 19. Hypoalbuminemia. 20.Right sided cp after catheter insertion and correction less discomfort. 21. Decreased edema both lower extremities with hrexdfqxcek-nwloudfon-Gqxtleec with Pleural and Pericardial effusion. 22. pain syndrome 23.bilateral pleural effusions ; s/p left thoracentesis, During the procedure the probe of the u/s was placed to the right side of the chest which showed only minimal amount of liquid on the right pleural cavity. 24. Systolic over diastolic congestive heart failure with a right more than left lower extremity swelling with no DVT in latest venous Doppler. 25. Swelling of the left forearm-persist. Cellulitis of the left forearm with increased edema anteriorly.-Today it is less edematous 26. Pathologic fracture of the right hip;s/p hemiarthroplasty of right hip . Result Diagram: Result Diagram: 10/05/18 4931 10/06/18 8224 Exam/Review of Systems Exam Vitals Vital Signs Date Temp Pulse Resp B/P (MAP) Pulse Ox O2 O2 Flow FiO2 Time Delivery Rate 10/07/18 98.7 91 18 112/58 93 07:50 (76) 10/07/18 Room Air 04:15 10/05/18 2.0 04:43 Intake and Output 10/06/18 10/06/18 10/07/18 1515:00 23:00 07:00 IntakeIntake Total 1510 ml 1000 ml OutputOutput Total 300 ml 601 ml BalanceBalance -300 ml 909 ml 1000 ml Medications Medication Current Medications Acetaminophen (Tylenol Tab) 500 mg Q6H PRN PO MILD PAIN(1-3)OR ELEVATED TEMP Last administered on 09/20/18 22:55; Admin Dose 500 MG; Start 09/09/18 at 22:30 Anastrozole (Arimidex) 1 mg DAILY PO Last administered on 10/07/18 09:45; Admin Dose 1 MG; Start 09/10/18 at 09:00 Carvedilol (Coreg) 3.125 mg BID PO Last administered on 10/07/18 09:41; Admin Dose 3.125 MG; Start 09/09/18 at 22:30 Docusate Sodium (Colace) 200 mg BID PO Last administered on 10/07/18 09:40; Admin Dose 200 MG; Start 09/09/18 at 22:30 Escitalopram Oxalate (Lexapro) 10 mg DAILY PO Last administered on 10/07/18 09:40; Admin Dose 10 MG; Start 09/10/18 at 09:00 Pantoprazole (Protonix Tab) 40 mg AC BREAKFAST PO Last administered on 10/07/18 05:43; Admin Dose 40 MG; Start 09/10/18 at 07:00 Polyethylene Glycol (Miralax) 17 gm BID PO Last administered on 10/07/18 09:42; Admin Dose 17 GM; Start 09/09/18 at 22:30 Spironolactone (Aldactone) 50 mg DAILY PO Last administered on 10/07/18 09:40; Admin Dose 50 MG; Start 09/13/18 at 18:00 Potassium Chloride (Klor-Con 20) 20 meq BID PO Last administered on 10/01/18 20:23; Admin Dose 20 MEQ; Start 09/15/18 at 21:00; Status Hold Albuterol/ Ipratropium (Duoneb) 3 ml Q8H RESP THERAPY PRN HHN SHORTNESS OF BREATH Last administered on 10/03/18 19:11; Admin Dose 3 ML; Start 09/15/18 at 14:30 Oxycodone HCl (Oxycontin) 20 mg Q12 PO Last administered on 10/07/18 09:40; Admin Dose 20 MG; Start 09/15/18 at 21:00 Olopatadine HCl (Patanol 0.1% Oph) 1 drop BID BOTH EYES Last administered on 10/07/18 09:36; Admin Dose 1 DROP; Start 09/16/18 at 21:00 Loratadine (Claritin) 10 mg DAILY PO Last administered on 10/07/18 09:41; A dmin Dose 10 MG; Start 09/17/18 at 09:00 Lidocaine (Lidoderm) 2 patch DAILY TD Last administered on 10/06/18 09:16; Admin Dose 2 PATCH; Start 09/26/18 at 17:30 Hydromorphone HCl (Dilaudid) 0.4 mg Q2H PRN IV .PAIN 6-10 Last administered on 10/02/18 09:21; Admin Dose 0.4 MG; Start 10/01/18 at 16:30 Nalbuphine HCl (Nubain) 10 mg Q4H PRN IV .PRURITUS; Start 10/01/18 at 16:30 Naloxone HCl (Narcan) 0.2 mg Q2M PRN IV .RESP RATE; Start 10/01/18 at 16:30 Miscellaneous Information (* Miscellaneous Pharmacy Order) DURAMORPH: 0.1 MG SPI... GIVEN NEURAXIAL XX ; Start 10/01/18 at 16:30 Simethicone (Mylicon) 80 mg TID PRN PO .GAS; Start 10/01/18 at 16:30 IV Flush (NS 3 ml) 3 ml per protocol IV ; Start 10/01/18 at 16:30 Ondansetron HCl 8 mg/Dextrose 54 ml @ 212 mls/hr Q6H PRN IV NAUSEA AND/OR VOMI TING Last administered on 10/05/18 07:38; Admin Dose 212 MLS/HR; Start 10/03/18 at 11:30 Morphine Sulfate (morphine) 4 mg Q2 PRN IV SEVERE PAIN LEVEL 7-10 Last administered on 10/07/18 09:37; Admin Dose 4 MG; Start 10/03/18 at 18:30 Sodium Chloride (Nacl) 4 gm DAILY PO Last administered on 10/07/18at 09:42; Admin Dose 4 GM; Start 10/07/18 at 09:00 Ferric Sodium Gluconate Complex 125 mg/Sodium Chloride 110 ml @ 110 mls/hr DAILY@1300 IVPB Last administered on 10/07/18 14:05; Admin Dose 110 MLS/HR; Start 10/06/18 at 14:30; Stop 10/10/18 at 13:59 Sodium Phosphate 30 mmol/Sodium Chloride 260 ml @ 65 mls/hr DAILY IVPB Last administered on 10/07/18 09:37; Admin Dose 65 MLS/HR; Start 10/06/18 at 15:00; Stop 10/08/18 at 14:59 Albumin Human 100 ml @ 100 mls/hr Q8H IV Last administered on 10/07/18 05:42; Admin Dose 100 MLS/HR; Start 10/06/18 at 14:30; Stop 10/08/18 at 14:29 Furosemide (Lasix) 40 mg BID DIURETICS PO ; Start 10/07/18 at 18:00 RUSS JEROME MD Oct 07, 2018 14:21
[2018-10-07] MEDS: FUROSEMIDE 40 MG TAB PO SCH (18:09)
--- NOTE | 2018-10-07 21:55 | PN ---
DATE: 10/07/2018 Stable vital signs. Has been up with physical therapy. [place] a clicking sensation in the right hip, which was followed by pain. Repeated x-rays of the right hip after incidence was showing avulsion of the lesser trochanter. The bipolar hip prosthesis n the proper position. Had 2 units of packed ken ls transfused. Okay to continue with physical therapy including ambulation following the restriction s. Dictated By: ALMA CORDOVA MD IK/NTS Conf#: [id number] DID#: [id number] CC: ALMA CORDOVA MD; RUSS JEROME MD;*EndCC*
[2018-10-08] MEDS: morphine 4 MG/ML VIAL IV PRN ×4 (02:45→20:12)
[2018-10-08 03:59] VITALS: BP 104/67; PULSE 94; RESP 18
[2018-10-08] MEDS: ALBUMIN HUMAN 25% 100 ML IV SCH (06:18)
[2018-10-08] MEDS: PANTOPRAZOLE (EC) 40 MG TAB PO SCH (06:19)
[2018-10-08] MEDS: FUROSEMIDE 40 MG TAB PO SCH ×2 (06:30→18:26)
[2018-10-08 06:31] VITALS: BP 111/70; PULSE 89; RESP 18
[2018-10-08 07:25] VITALS: BP 135/71; PULSE 90; RESP 18
--- NOTE | 2018-10-08 08:50 | PN ---
DATE: 10/08/2018 SUBJECTIVE: The patient is stable, no events overnight. The patient continues to complain about swe lling. OBJECTIVE: VITAL SIGNS: Blood pressure is 135/71, pulse 90, respirations 18, temperature 98.4. HEENT: Head is normocephalic. NECK: Supple. HEART: Regular rate. LUNGS: Show diminished breath sounds at the base. ABDOMEN: Soft, nontender to palpation. No rebound or guarding. EXTREMITIES: Negative for clubbing, cyanosis. Positive edema. DERMATOLOGIC: No rashes. MUSCULOSKELETAL: No joint effusion. NEUROLOGIC: No change in exam. MEDICATIONS: Reviewed. LABORATORY DATA: From 10/08/2018 shows sodium 139, BUN 14, creatinine 0.55. ASSESSMENT AND PLAN: 1. Hypernatremia, etiology is felt to be secondary to hemodynamics, heart failure. Questionable com ponent of intravascular volume depletion. The patient's sodium levels have improved with IV albumin and diuretic therapy. The patient is also on salt tablets. We will continue to monitor sodium level s closely. Continue diuretic therapy. Minimize free water intake. 2. Volume overload. Etiology is multifactorial secondary to heart failure and third spacing. Vickie nue albumin and Lasix. 3. Hypokalemia. Continue to monitor and replete. 4. Left breast cancer with metastasis. Continue to monitor. 5. Right hip fracture, status post arthroplasty. Continue physical therapy. 6. Chronic pain syndrome. Continue current pain regimen. 7. Anemia. Continue to monitor hemoglobin and hematocrit levels. Dictated By: ANDRÉS TATUM DO NR/NTS Conf#: [id number] DID#: [id number] CC: RUSS JEROME MD;*EndCC*
[2018-10-08] MEDS: LIDOCAINE 5% PATCH TD SCH (09:00)
[2018-10-08] MEDS: OLOPATADINE 0.1% 5 ML OPH BOTH EYES SCH ×2 (09:00→20:11)
[2018-10-08] MEDS: SODIUM CHLORIDE 1 GM TAB PO SCH (09:33)
[2018-10-08] MEDS: DOCUSATE SODIUM 100 MG CAP PO SCH ×2 (09:33→20:11)
[2018-10-08] MEDS: ESCITALOPRAM 10 MG TAB PO SCH (09:33)
[2018-10-08] MEDS: ANASTROZOLE 1 MG TAB PO SCH (09:34)
[2018-10-08] MEDS: oxyCODONE (CR) 10 MG TAB [oxyCONTIN] PO SCH ×2 (09:35→21:09)
[2018-10-08] MEDS: LORATADINE 10 MG TAB PO SCH (09:35)
[2018-10-08] MEDS: SPIRONOLACTONE 50 MG TAB PO SCH (09:35)
[2018-10-08] MEDS: POLYETHYLENE GLYCOL 17 GM PACKET PO SCH ×2 (09:36→20:11)
[2018-10-08] MEDS: SODIUM PHOSPHATE 30 MMOL in SOD CHLORIDE 0.9% 250 ML IVPB SCH (09:36)
--- NOTE | 2018-10-08 10:31 | CONS ---
Consult Date/Type/Reason Admit Date/Time Sep 09, 2018 at 14:53 Initial Consult Date 09/09/18 Requesting Provider: RUSS JEROME MD Date/Time of Note DATE: 10/08/18 TIME: 10:27 Subjective NO acute events - BP in good range - still with sigificant fluid overload - con't diuresis. ROS: No fever, no chills, no nausea, no vomiting, no diarrhea/constipation No recent weight changes No chest pain, no PND, no orthopnea - chronic SOB, stable No dizziness, blurred vision No thirst, no heat or cold intolerance Objective Vitals Vital Signs Date Temp Pulse Resp B/P (MAP) Pulse Ox O2 O2 Flow FiO2 Time Delivery Rate 10/08/18 98.4 90 18 135/71 90 07:25 (92) 10/08/18 Room Air 06:31 10/05/18 2.0 04:43 Intake and Output 10/07/18 10/07/18 10/08/18 1515:00 23:00 07:00 IntakeIntake Total 660 ml 500 ml 340 ml BalanceBalance 660 ml 500 ml 340 ml Exam General: WN/WD/NAD, AOx 3 HEENT: Unicetric/atraumatic/EOMI (follows commands) NECK: JVD elevated, no thyromegaly Lymph: no lymphadenopathy HEART: regular with no S3, II/ systolic murmur at apex, PMI L LUNGS: Coarse sounds ABD: soft, NT, ND, +BS : Intact Neuro: non focal SKIN: chronic changes EXT: 1-2+ edema Results/Medications Result Diagram: 10/08/18 0424 10/08/18 0424 Results 24 hrs Laboratory Tests Test 10/08/18 04:24 10/08/18 07:22 White Blood Count 3.3 #L Red Blood Count 2.95 #L Hemoglobin 9.4 #L Hematocrit 28.3 #L Mean Corpuscular Volume 95.9 Mean Corpuscular Hemoglobin 31.9 Mean Corpuscular Hemoglobin Concent 33.2 Red Cell Distribution Width 18.4 H Platelet Count 153 Mean Platelet Volume 9.4 Immature Granulocytes % 0.000 L Neutrophils % 55.1 Lymphocytes % 22.9 Monocytes % 14.7 H Eosinophils % 6.7 Basophils % 0.6 Nucleated Red Blood Cells % 0.0 Immature Granulocytes # 0.000 Neutrophils # 1.8 Lymphocytes # 0.8 Monocytes # 0.5 Eosinophils # 0.2 Basophils # 0.0 Nucleated Red Blood Cells # 0.0 Sodium Level 139 Potassium Level 4.1 Chloride Level 105 Carbon Dioxide Level 28 Anion Gap 6 Blood Urea Nitrogen 14 Creatinine 0.55 Est Glomerular Filtrat Rate mL/min > 60 Glucose Level 99 Calcium Level 8.6 Phosphorus Level 4.0 Magnesium Level 1.8 Lab Scanned Report BLOOD TRANSFUSION Home Meds Reported Medications Potassium Chloride* (Potassium Chloride*) 20 Meq Tablet.er, 20 MEQ PO DAILY, TAB.SA 09/09/18 Epoetin Cr (Procrit) 4,000 Unit/1 Ml Vial, 4000 UNIT IJ Q FRI, VIAL 7:00AM-7:00PM,HOLD IF HGB>10 09/09/18 Ondansetron Hcl* (Zofran*) 4 Mg Tab, 4 MG PO Q6H PRN for NAUSEA AND OR VOMITING, TAB 08/22/18 Pantoprazole* (Pantoprazole*) 40 Mg Tablet.dr, 40 MG PO AC BREAKFAST, TAB 08/22/18 Oxycodone Hcl* (Oxycontin*) 20 Mg Tab.er.12h, 20 MG PO Q12, TAB 08/22/18 Amlodipine Besylate* (Norvasc*) 5 Mg Tablet, 5 MG PO BID, TAB HOLD FOR SBP <110. 08/22/18 Polyethylene Glycol* (Miralax*) 17 Gm Powd.pack, 17 GM PO BID, #60 PACKET ON THUR-12:00 TO 4:00PM 08/22/18 Magnesium Hydroxide* (Milk Of Magnesia*) 400 Mg/5 Ml Oral.susp, 30 ML PO DAILY, ML 08/22/18 Escitalopram Oxalate* (Lexapro*) 10 Mg Tablet, 10 MG PO DAILY, #30 TAB 08/22/18 Furosemide* (Furosemide*) 20 Mg Tablet, 20 MG PO DAILY, #60 TAB HOLD FOR SBP <110. 08/22/18 Docusate Sodium* (Colace*) 100 Mg Capsule, 200 MG PO BID, #60 CAP 08/22/18 Carvedilol* (Carvedilol*) 3.125 Mg Tablet, 3.125 MG PO BID, #60 TAB HOLD FOR SBP <110 OR TN <60. GIVE WITH FOOD. 08/22/18 Lactose-Free Food (Boost High Protein) 237 Ml Liquid, 120 ML PO BID 08/22/18 Benazepril Hcl* (Benazepril Hcl*) 5 Mg Tablet, 5 MG PO BID, #60 TAB HOLD FOR SBP <110. 08/22/18 Anastrozole* (Arimidex*) 1 Mg Tablet, 1 MG PO DAILY, #30 TAB 08/22/18 Acetaminophen* (Acetaminophen*) 500 MG Extra Strength Tablet, 500 MG PO Q6H PRN for PAIN AND OR ELEVATED TEMP, TAB 08/22/18 Medications Current Medications Acetaminophen (Tylenol Tab) 500 mg Q6H PRN PO MILD PAIN(1-3)OR ELEVATED TEMP Last administered on 09/20/18 22:55; Admin Dose 500 MG; Start 09/09/18 at 22:30 Anastrozole (Arimidex) 1 mg DAILY PO Last administered on 10/08/18 09:34; Admin Dose 1 MG; Start 09/10/18 at 09:00 Carvedilol (Coreg) 3.125 mg BID PO Last administered on 10/08/18 09:35; Admin Dose 3.125 MG; Start 09/09/18 at 22:30 Docusate Sodium (Colace) 200 mg BID PO Last administered on 10/08/18 09:33; Admin Dose 200 MG; Start 09/09/18 at 22:30 Escitalopram Oxalate (Lexapro) 10 mg DAILY PO Last administered on 10/08/18 09:33; Admin Dose 10 MG; Start 09/10/18 at 09:00 Pantoprazole (Protonix Tab) 40 mg AC BREAKFAST PO Last administered on 09/17 06:19; Admin Dose 40 MG; Start 09/10/18 at 07:00 Polyethylene Glycol (Miralax) 17 gm BID PO Last administered on 10/08/18 09:36; Admin Dose 17 GM; Start 09/09/18 at 22:30 Spironolactone (Aldactone) 50 mg DAILY PO Last administered on 10/08/18 09:35; Admin Dose 50 MG; Start 09/13/18 at 18:00 Potassium Chloride (Klor-Con 20) 20 meq BID PO Last administered on 10/01/18 20:23; Admin Dose 20 MEQ; Start 09/15/18 at 21:00; Status Hold Albuterol/ Ipratropium (Duoneb) 3 ml Q8H RESP THERAPY PRN HHN SHORTNESS OF BREATH Last administered on 10/03/18 19:11; Admin Dose 3 ML; Start 09/15/18 at 14:30 Oxycodone HCl (Oxycontin) 20 mg Q12 PO Last administered on 10/08/18 09:35; Admin Dose 20 MG; Start 09/15/18 at 21:00 Olopatadine HCl (Patanol 0.1% Oph) 1 drop BID BOTH EYES Last administered on 10/07/18 21:42; Admin Dose 1 DROP; Start 09/16/18 at 21:00 Loratadine (Claritin) 10 mg DAILY PO Last administered on 10/08/18 09:35; Admin Dose 10 MG; Start 09/17/18 at 09:00 Lidocaine (Lidoderm) 2 patch DAILY TD Last administered on 10/06/18 09:16; Admin Dose 2 PATCH; Start 09/26/18 at 17:30 Hydromorphone HCl (Dilaudid) 0.4 mg Q2H PRN IV .PAIN 6-10 Last administered on 10/02/18 09:21; Admin Dose 0.4 MG; Start 10/01/18 at 16:30 Nalbuphine HCl (Nubain) 10 mg Q4H PRN IV .PRURITUS; Start 10/01/18 at 16:30 Naloxone HCl (Narcan) 0.2 mg Q2M PRN IV .RESP RATE; Start 10/01/18 at 16:30 Miscellaneous Information (* Miscellaneous Pharmacy Order) DURAMORPH: 0.1 MG SPI... GIVEN NEURAXIAL XX ; Start 10/01/18 at 16:30 Simethicone (Mylicon) 80 mg TID PRN PO .GAS; Start 10/01/18 at 16:30 IV Flush (NS 3 ml) 3 ml per protocol IV ; Start 10/01/18 at 16:30 Ondansetron HCl 8 mg/Dextrose 54 ml @ 212 mls/hr Q6H PRN IV NAUSEA AND/OR VOMITING Last administered on 10/05/18 07:38; Admin Dose 212 MLS/HR; Start 10/03/18 at 11:30 Morphine Sulfate (morphine) 4 mg Q2 PRN IV SEVERE PAIN LEVEL 7-10 Last administered on 10/08/18 02:45; Admin Dose 4 MG; Start 10/03/18 at 18:30 Ferric Sodium Gluconate Complex 125 mg/Sodium Chloride 110 ml @ 110 mls/hr DAILY@1300 IVPB Last administered on 10/07/18at 14:05; Admin Dose 110 MLS/HR; Start 10/06/18 at 14:30; Stop 10/10/18 at 13:59 Sodium Phosphate 30 mmol/Sodium Chloride 260 ml @ 65 mls/hr DAILY IVPB Last administered on 10/08/18at 09:36; Admin Dose 65 MLS/HR; Start 10/06/18 at 15:00; Stop 10/08/18 at 14:59 Albumin Human 100 ml @ 100 mls/hr Q8H IV Last administered on 10/08/18 06:18; Admin Dose 100 MLS/HR; Start 10/06/18 at 14:30; Stop 10/08/18 at 14:29 Furosemide (Lasix) 40 mg BID DIURETICS PO Last administered on 10/08/18at 06:30; Admin Dose 40 MG; Start 10/07/18 at 18:00 Sodium Chloride (Nacl) 2 gm DAILY PO Last administered on 10/08/18 09:33; Admin Dose 2 GM; Start 10/08/18 at 09:00 Assessment/Plan Hospital Course (Demo Recall) 1. Congestive heart failure exacerbation, diastolic by most recent echo, acute on chronic.-neg trop x 3. Echo this admit EF 60/small pericardia effusion - responding to diuresis, feels better now - now with increased retention - diffclt to diureses with low BP - better now - con't diuresis as tolerated - stable. 2. Hypotension, currently borderline-overall improved - stable - will monitor now - ADVISE TELE - improved hypoxia - treated now. 3. Anasarca - con;t fluid optimization - responded to diuresis 4. Metastatic breast carcinoma - overall poor prognosis - oncology team follows. 5. Leukopenia- on meds. 6. Thrombocytopenia.-ongoing - no active bleeding now, H/H stable down to 7.2 - + bruising - Rx with blood rx as needed EMILY NELSON MD Oct 08, 2018 10:31
[2018-10-08] MEDS: SOD FERRIC GLUC COMPLX 125 MG in SOD CHLORIDE 0.9% 100 ML IVPB SCH (13:14)
--- NOTE | 2018-10-08 14:33 | PN ---
Date/Time of Note Date/Time of Note DATE: 10/08/18 TIME: 14:32 Assessment/Plan VTE Prophylaxis Risk score (from Nsg)>0 risk: 12 SCD applied (from Ns): No SCD contraindicated: low risk/ambulating Pharmacological prophylaxis: LMWH Lines/Catheters IV Catheter Type (from Nrsg): Peripheral IV Central line still needed: No Urinary Cath still in place: No Reason Cath still needed: urinary retention Assessment/Plan Hospital Course S/p recurrent thoracentesis with re-occultation of fluid. By calculating patient's preoperative risk the patient is in mild to moderate cardiac risk category. Due to of multiple vertebral fractures handling of the patient's body on the operative table must be extremely careful. Extra dose of Lasix will be given now to diurese the patient which looks slightly more congested comparing w ith the yesterday's white having anasarca. No contraindications to surgery. Assessment/Plan S/p recurrent thoracentesis with re-occultation of fluid. By calculating patient's preoperative risk the patient is in mild to moderate cardiac risk category. Due to of multiple vertebral fractures handling of the patient's body on the operative table must be extremely careful. Extra dose of Lasix will be given now to diurese the patient which looks slightly more congested comparing with the yesterday's white having anasarca. No contraindications to surgery. Assessment/Plan S/p recurrent thoracentesis with re-occultation of fluid. By calculating pb ent's preoperative risk the patient is in mild to moderate cardiac risk category. Due to of multiple vertebral fractures handling of the patient's body on the operative table must be extremely careful. Extra dose of Lasix will be given now to diurese the patient which looks slightly more congested comparing with the yesterday's white having anasarca. No contraindications to surgery. ring with the yesterday's white having anasarca. No contraindications to surgery. Assessment/Plan Hemiarthroplasty of the right hip 10/01/[address] Shane. S/p recurrent thoracentesis with re-occultation of fluid. Assessment/Plan 1. PRIMARY ADENOCARCINOMA of the left breast. MULTIPLE BONY METS, PULMONARY METS;LIVER METS CHEMO ON HOLD; PT HAS A VERY GOOD RESPONSE TO CHEMO AND AI 2. Severe pain in the interscapular and lumbar sacral area most probably metastatic lesion possible femoral fracture. pathologic fracture of T9 with 60% of loss of height. Neurosurgical f/u. 3. Obesity. 4. Weight loss 60 pounds during the last 2 years by diet 5. PMS. 6. Myopia. 7. Anemia chronic disease with a drop of her hematocrit to 27; 1 units of packed RBC plan to transfuse. Latest results 28. Will recheck tomorrow; Leukopenia.Thrombocytopenia; 8. Anxiety disorder. Claustrophobia. Increase Ativan to 1 mg every 8 as needed at Lexapro 10 mg daily. 9. Posttraumatic stress disorder. 10. Pain in the left forearm with a history of fracture of ulna and radius. 11. Tachycardia 12. Hypoxemia at night marginal improved after 2 L of nasal cannula oxygen. 13. Deconditioning 14. 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 MRI: 09/28/18:diffuse osseous metastatic disease with multiple pathologic compression fractures at least involving the T4, T5, T7, T9 and T11 levels. There is likely mild cortical breakthrough at several levels resulting in mild central canal narrowing. No gross evidence of cord compression is seen.. 15. Pain syndrome. Today the most painful zone is in the right hip area. 16. Hyponatremia-corrected; hypokalemia now hyperkalemic 5.2 hold potassium p.o. today and hold Aldactone today.Recheck and sodium chloride daily with the dose to 4 mg today 17. Leucopenia-improved. 18. Neutropenia with occasional fever and chills. Last chemotherapy 5 days ago. 19. Hypoalbuminemia. 20.Right sided cp after catheter insertion and correction less discomfort. 21. Decreased edema both lower extremities with psipoervvsv-apuizbapy-Lcjigyux with Pleural and Pericardial effusion. 22. pain syndrome 23.bilateral pleural effusions ; s/p left thoracentesis, During the procedure the probe of the u/s was placed to the right side of the chest which showed only minimal amount of liquid on the right pleural cavity. 24. Systolic over diastolic congestive heart failure with a right more than left lower extremity swelling with no DVT in latest venous Doppler. 25. Swelling of the left forearm-persist. Cellulitis of the left forearm with increased edema anteriorly.-Today it is less edematous 26. Pathologic fracture of the right hip;s/p hemiarthroplasty of right hip . Result Diagram: 10/08/1842310/08/18423 Results 24hrs Laboratory Tests Test 10/08/18 04:24 10/08/18 07:22 White Blood Count 3.3 #L Red Blood Count 2.95 #L Hemoglobin 9.4 #L Hematocrit 28.3 #L Mean Corpuscular Volume 95.9 Mean Corpuscular Hemoglobin 31.9 Mean Corpuscular Hemoglobin Concent 33.2 Red Cell Distribution Width 18.4 H Platelet Count 153 Mean Platelet Volume 9.4 Immature Granulocytes % 0.000 L Neutrophils % 55.1 Lymphocytes % 22.9 Monocytes % 14.7 H Eosinophils % 6.7 Basophils % 0.6 Nucleated Red Blood Cells % 0.0 Immature Granulocytes # 0.000 Neutrophils # 1.8 Lymphocytes # 0.8 Monocytes # 0.5 Eosinophils # 0.2 Basophils # 0.0 Nucleated Red Blood Cells # 0.0 Sodium Level 139 Potassium Level 4.1 Chloride Level 105 Carbon Dioxide Level 28 Anion Gap 6 Blood Urea Nitrogen 14 Creatinine 0.55 Est Glomerular Filtrat Rate mL/min > 60 Glucose Level 99 Calcium Level 8.6 Phosphorus Level 4.0 Magnesium Level 1.8 Lab Scanned Report BLOOD TRANSFUSION Exam/Review of Systems Exam Vitals Vital Signs Date Temp Pulse Resp B/P (MAP) Pulse Ox O2 O2 Flow FiO2 Time Delivery Rate 10/08/18 98.4 90 18 135/71 90 07:25 (92) 10/08/18 Room Air 06:31 10/05/18 2.0 04:43 Intake and Output 10/07/18 10/07/18 10/08/18 1515:00 23:00 07:00 IntakeIntake Total 660 ml 500 ml 340 ml BalanceBalance 660 ml 500 ml 340 ml Results Results 24hrs Laboratory Tests Test 10/08/18 04:24 10/08/18 07:22 White Blood Count 3.3 #L Red Blood Count 2.95 #L Hemoglobin 9.4 #L Hematocrit 28.3 #L Mean Corpuscular Volume 95.9 Mean Corpuscular Hemoglobin 31.9 Mean Corpuscular Hemoglobin Concent 33.2 Red Cell Distribution Width 18.4 H Platelet Count 153 Mean Platelet Volume 9.4 Immature Granulocytes % 0.000 L Neutrophils % 55.1 Lymphocytes % 22.9 Monocytes % 14.7 H Eosinophils % 6.7 Basophils % 0.6 Nucleated Red Blood Cells % 0.0 Immature Granulocytes # 0.000 Neutrophils # 1.8 Lymphocytes # 0.8 Monocytes # 0.5 Eosinophils # 0.2 Basophils # 0.0 Nucleated Red Blood Cells # 0.0 Sodium Level 139 Potassium Level 4.1 Chloride Level 105 Carbon Dioxide Level 28 Anion Gap 6 Blood Urea Nitrogen 14 Creatinine 0.55 Est Glomerular Filtrat Rate mL/min > 60 Glucose Level 99 Calcium Level 8.6 Phosphorus Level 4.0 Magnesium Level 1.8 Lab Scanned Report BLOOD TRANSFUSION Medications Medication Current Medications Acetaminophen (Tylenol Tab) 500 mg Q6H PRN PO MILD PAIN(1-3)OR ELEVATED TEMP Last administered on 09/20/18 22:55; Admin Dose 500 MG; Start 09/09/18 at 22:30 Anastrozole (Arimidex) 1 mg DAILY PO Last administered on 10/08/18 09:34; Admin Dose 1 MG; Start 09/10/18 at 09:00 Carvedilol (Coreg) 3.125 mg BID PO Last administered on 10/08/18 09:35; Admin Dose 3.125 MG; Start 09/09/18 at 22:30 Docusate Sodium (Colace) 200 mg BID PO Last administered on 10/08/18 09:33; Admin Dose 200 MG; Start 09/09/18 at 22:30 Escitalopram Oxalate (Lexapro) 10 mg DAILY PO Last administered on 10/08/18 09:33; Admin Dose 10 MG; Start 09/10/18 at 09:00 Pantoprazole (Protonix Tab) 40 mg AC BREAKFAST PO Last administered on 10/08/18 06:19; Admin Dose 40 MG; Start 09/10/18 at 07:00 Polyethylene Glycol (Miralax) 17 gm BID PO Last administered on 10/08/18 09:36; Admin Dose 17 GM; Start 09/09/18 at 22:30 Spironolactone (Aldactone) 50 mg DAILY PO Last administered on 10/08/18 09:35; Admin Dose 50 MG; Start 09/13/18 at 18:00 Potassium Chloride (Klor-Con 20) 20 meq BID PO Last administered on 10/01/18 20:23; Admin Dose 20 MEQ; Start 09/15/18 at 21:00; Status Hold Albuterol/ Ipratropium (Duoneb) 3 ml Q8H RESP THERAPY PRN HHN SHORTNESS OF BREATH Last administered on 10/03/18 19:11; Admin Dose 3 ML; Start 09/15/18 at 14:30 Oxycodone HCl (Oxycontin) 20 mg Q12 PO Last administered on 10/08/18 09:35; A dmin Dose 20 MG; Start 09/15/18 at 21:00 Olopatadine HCl (Patanol 0.1% Oph) 1 drop BID BOTH EYES Last administered on 10/07/18 21:42; Admin Dose 1 DROP; Start 09/16/18 at 21:00 Loratadine (Claritin) 10 mg DAILY PO Last administered on 10/08/18 09:35; Admin Dose 10 MG; Start 09/17/18 at 09:00 Lidocaine (Lidoderm) 2 patch DAILY TD Last administered on 10/06/18 09:16; Admin Dose 2 PATCH; Start 09/26/18 at 17:30 Hydromorphone HCl (Dilaudid) 0.4 mg Q2H PRN IV .PAIN 6-10 Last administered on 10/02/18 09:21; Admin Dose 0.4 MG; Start 10/01/18 at 16:30 Nalbuphine HCl (Nubain) 10 mg Q4H PRN IV .PRURITUS; Start 10/01/18 at 16:30 Naloxone HCl (Narcan) 0.2 mg Q2M PRN IV .RESP RATE; Start 10/01/18 at 16:30 Miscellaneous Information (* Miscellaneous Pharmacy Order) DURAMORPH: 0.1 MG SPI... GIVEN NEURAXIAL XX ; Start 10/01/18 at 16:30 Simethicone (Mylicon) 80 mg TID PRN PO .GAS; Start 10/01/18 at 16:30 IV Flush (NS 3 ml) 3 ml per protocol IV ; Start 10/01/18 at 16:30 Ondansetron HCl 8 mg/Dextrose 54 ml @ 212 mls/hr Q6H PRN IV NAUSEA AND/OR VOMITING Last administered on 10/05/18 07:38; Admin Dose 212 MLS/HR; Start 10/03/18 at 11:30 Morphine Sulfate (morphine) 4 mg Q2 PRN IV SEVERE PAIN LEVEL 7-10 Last administered on 10/08/18 13:14; Admin Dose 4 MG; Start 10/03/18 at 18:30 Ferric Sodium Gluconate Complex 125 mg/Sodium Chloride 110 ml @ 110 mls/hr DAILY@1300 IVPB Last administered on 10/08/18at 13:14; Admin Dose 110 MLS/HR; Start 10/06/18 at 14:30; Stop 10/10/18 at 13:59 Sodium Phosphate 30 mmol/Sodium Chloride 260 ml @ 65 mls/hr DAILY IVPB Last administered on 10/08/18at 09:36; Admin Dose 65 MLS/HR; Start 10/06/18 at 15:00; Stop 10/08/18 at 14:59 Furosemide (Lasix) 40 mg BID DIURETICS PO Last administered on 10/08/18 06:30; Admin Dose 40 MG; Start 10/07/18 at 18:00 Sodium Chloride (Nacl) 2 gm DAILY PO Last administered on 10/08/18 09:33; Admin Dose 2 GM; Start 10/08/18 at 09:00 RUSS JEROME MD Oct 08, 2018 14:33
[2018-10-08 19:54] VITALS: BP 112/64; PULSE 86; RESP 18
[2018-10-09] MEDS: ALBUTEROL/IPRATROPIUM (NEB) 3 ML AMP HHN PRN ×2 (01:11→23:15)
[2018-10-09 02:20] VITALS: BP 113/60; PULSE 84; RESP 18
[2018-10-09] MEDS: FUROSEMIDE 40 MG TAB PO SCH ×2 (06:17→18:00)
[2018-10-09] MEDS: PANTOPRAZOLE (EC) 40 MG TAB PO SCH (06:17)
[2018-10-09 07:54] VITALS: BP 116/64; PULSE 80; RESP 18
[2018-10-09] MEDS: LIDOCAINE 5% PATCH TD SCH (09:00)
[2018-10-09] MEDS: OLOPATADINE 0.1% 5 ML OPH BOTH EYES SCH ×2 (09:27→20:26)
[2018-10-09] MEDS: POLYETHYLENE GLYCOL 17 GM PACKET PO SCH ×2 (09:29→21:00)
[2018-10-09] MEDS: DOCUSATE SODIUM 100 MG CAP PO SCH ×2 (09:30→20:26)
[2018-10-09] MEDS: SODIUM CHLORIDE 1 GM TAB PO SCH (09:30)
[2018-10-09] MEDS: ESCITALOPRAM 10 MG TAB PO SCH (09:30)
[2018-10-09] MEDS: LORATADINE 10 MG TAB PO SCH (09:30)
[2018-10-09] MEDS: oxyCODONE (CR) 10 MG TAB [oxyCONTIN] PO SCH ×2 (09:30→20:27)
[2018-10-09] MEDS: SPIRONOLACTONE 50 MG TAB PO SCH (09:31)
[2018-10-09] MEDS: ANASTROZOLE 1 MG TAB PO SCH (09:32)
--- NOTE | 2018-10-09 10:35 | PN ---
DATE: 10/09/2018 SUBJECTIVE: The patient still remains volume overloaded and lethargic overnight. No other events no malka. OBJECTIVE: VITAL SIGNS: Blood pressure is 116/64, respirations 18, pulse 80, temperature 98.5. HEENT: Head is normocephalic. NECK: Supple. HEART: Regular rate. LUNGS: Show diminished breath sounds at the base. Positive crackles. ABDOMEN: Soft, nontender to palpation without rebound or guarding. EXTREMITIES: Negative for clubbing, cyanosis. Positive edema. DERMATOLOGIC: No rashes. MUSCULOSKELETAL: No joint effusion. NEUROLOGIC: No change in exam. MEDICATIONS: Reviewed. LABORATORY DATA: Reviewed. ASSESSMENT AND PLAN: 1. Hyponatremia, resolved. Etiology is multifactorial. Continue current treatment plan. Continue diuretic therapy. Continue salt tablets. 2. Volume overload secondary to heart failure and third spacing. Continue albumin and diuretic ther apy. 3. Pleural effusion, consider thoracentesis. 4. Hypokalemia. Continue to monitor and replete. 5. Left breast cancer with metastasis. Continue to monitor. 6. Right hip fracture, status post arthroplasty. Continue physical therapy. 7. Chronic pain syndrome. 8. Respiratory failure. Continue diuretic therapy. Continue supplemental oxygen. 9. Anemia. Continue to monitor hemoglobin and hematocrit levels. Dictated By: ANDRÉS YO/NTS Conf#: [id number] DID#: [id number] CC: RUSS JEROME MD;*EndCC*
--- NOTE | 2018-10-09 11:06 | PN ---
Date/Time of Note Date/Time of Note DATE: 10/09/18 TIME: 11:02 Assessment/Plan VTE Prophylaxis Risk score (from Nsg)>0 risk: 8 SCD applied (from Ns): No SCD contraindicated: other (on.) Pharmacological prophylaxis: LMWH Lines/Catheters IV Catheter Type (from Nrs): Central Line Central line still needed: No Urinary Cath still in place: No Reason Cath still needed: urinary retention Assessment/Plan Hospital Course S/p recurrent thoracentesis with re-occultation of fluid. By calculating patient's preoperative risk the patient is in mild to moderate cardiac risk category. Due to of multiple vertebral fractures handling of the patient's body on the operative table must be extremely careful. Extra dose of Lasix will be given now to diurese the patient which looks slightly more congested comparing with the yesterday's white having anasarca. No contraindications to surgery. Assessment/Plan Assessment/Plan S/p recurrent thoracentesis with re-occultation of fluid. By calculating pb ent's preoperative risk the patient is in mild to moderate cardiac risk category. Due to of multiple vertebral fractures handling of the patient's body on the operative table must be extremely careful. Extra dose of Lasix will be given now to diurese the patient which looks slightly more congested comparing with the yesterday's white having anasarca. No contraindications to surgery. Assessment/Plan Hemiarthroplasty of the right hip 10/01/[address] Shane. S/p recurrent thoracentesis with re-occultation of fluid. Assessment/Plan 1. PRIMARY ADENOCARCINOMA of the left breast. MULTIPLE BONY METS, PULMONARY METS;LIVER METS CHEMO ON HOLD; PT HAS A VERY GOOD RESPONSE TO CHEMO AND AI 2. Severe pain in the interscapular and lumbar sacral area most probably metastatic lesion possible femoral fracture. pathologic fracture of T9 with 60% of loss of height. Neurosurgical f/u. 3. Obesity. 4. Weight loss 60 pounds during the last 2 years by diet 5. PMS. 6. Myopia. 7. Anemia chronic disease with a drop of her hematocrit to 27; 1 units of packed RBC plan to transfuse. Latest results 28. Will recheck tomorrow; Leukopenia.Thrombocytopenia; 8. Anxiety disorder. Claustrophobia. Increase Ativan to 1 mg every 8 as needed at Lexapro 10 mg daily. 9. Posttraumatic stress disorder. 10. Pain in the left forearm with a history of fracture of ulna and radius. 11. Tachycardia 12. Hypoxemia at night marginal improved after 2 L of nasal cannula oxygen. 13. Deconditioning 14. 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 MRI: 09/28/18:diffuse osseous metastatic disease with multiple pathologic compression fractures at least involving the T4, T5, T7, T9 and T11 levels. There is likely mild cortical breakthrough at several levels resulting in mild central canal narrowing. No gross evidence of cord compression is seen.. 15. Pain syndrome. Today the most painful zone is in the right hip area. 16. Hyponatremia-corrected; hypokalemia now hyperkalemic 5.2 hold potassium p .o. today and hold Aldactone today.Recheck and sodium chloride daily with the dose to 4 mg today 17. Leucopenia-improved. 18. Neutropenia with occasional fever and chills. Last chemotherapy 5 days ago. 19. Hypoalbuminemia. 20.Right sided cp after catheter insertion and correction less discomfort. 21. Decreased edema both lower extremities with [id number] with Pleural and Pericardial effusion. 22. pain syndrome 23.bilateral pleural effusions ; s/p left thoracentesis, During the procedure the probe of the u/s was placed to the right side of the chest which showed only minimal amount of liquid on the right pleural cavity. 24. Systolic over diastolic congestive heart failure with a right more than left lower extremity swelling with no DVT in latest venous Doppler. 25. Swelling of the left forearm-persist. Cellulitis of the left forearm with increased edema anteriorly.-Today it is less edematous 26. Pathologic fracture of the right hip;s/p hemiarthroplasty of right hip . Result Diagram: 10/09/18 0836 10/09/18 0836 Results 24hrs Laboratory Tests Test 10/09/18 08:36 White Blood Count 3.8 L Red Blood Count 3.26 L Hemoglobin 10.4 L Hematocrit 32.0 L Mean Corpuscular Volume 98.2 Mean Corpuscular Hemoglobin 31.9 Mean Corpuscular Hemoglobin Concent 32.5 Red Cell Distribution Width 18.2 H Platelet Count 164 Mean Platelet Volume 8.4 Immature Granulocytes % 0.300 Neutrophils % 53.1 Lymphocytes % 25.7 Monocytes % 13.6 H Eosinophils % 6.3 Basophils % 1.0 Nucleated Red Blood Cells % 0.0 Immature Granulocytes # 0.010 Neutrophils # 2.0 Lymphocytes # 1.0 Monocytes # 0.5 Eosinophils # 0.2 Basophils # 0.0 Nucleated Red Blood Cells # 0.0 Sodium Level 138 Potassium Level 3.9 Chloride Level 103 Carbon Dioxide Level 30 Anion Gap 5 Blood Urea Nitrogen 14 Creatinine 0.62 Est Glomerular Filtrat Rate mL/min > 60 Glucose Level 102 Calcium Level 8.5 Phosphorus Level 4.5 Magnesium Level 1.7 Subjective 24 Hr Interval Summary Free Text/Dictation Pain is getting more tolerable. I am asking for pain medications less and less until it becomes intolerable. Constitutional: improved, poor po, requiring O2; No no complaints, No chills, No diaphoresis, No disoriented, No febrile, No requiring IVF, No other Eyes: visual change; No no complaints, No pain, No discharge, No redness, No other ENT: congestion, dysphagia; No no complaints, No bleeding, No pain, No discharge, No sore throat, No othe r Respiratory: No no complaints, No pain, No cough, No pleuritic pain, No shor tness of breath, No sputum, No wheezing, No other Cardiovascular: chest pain, edema; No no complaints, No lightheadedness, No orthopenea, No palpitations, No paroxysmal nocturnal dyspnea, No other Gastrointestinal: constipation, decreased appetite, flatus, nausea, passing stool; No no complaints, No pain, No blood, No diarrhea, No vomiting, No other Genitourinary: dysuria, flank pain; No no complaints, No bleeding, No discharge, No hematuria, No other Musculoskeletal: back pain, bone/joint pain, neck pain, other (Movements of the right lower extremity had more prominent.); No no complaints, No restricted range of motion, No swelling Skin: No no complaints, No bruising, No erythema, No laceration, No pruritis, No rash, No skin lesions, No other Neurologic: dizziness, headache; No no complaints, No confusion, No focal-weakness, No syncope, No seizure, No other Endocrine: dry skin; No no complaints, No polyuria, No polydypsia, No temp intolerance, No other Lymphatic: No no complaints, No adenopathy, No tender nodes, No lymphadema, No other Psychological: anxiety, depression; No no complaints, No nl mood/affect, No confusion, No suicidal, No other Immunologic: No no complaints, No immunodeficiency, No pruritis, No rhinitis, No urticaria, No other Exam/Review of Systems Exam Vitals Vital Signs Date Temp Pulse Resp B/P (MAP) Pulse Ox O2 O2 Flow FiO2 Time Delivery Rate 10/09/18 98.5 80 18 116/64 93 Room Air 07:54 (81) 10/09/18 2.0 02:20 Intake and Output 10/08/18 10/08/18 10/09/18 1515:00 23:00 07:00 IntakeIntake Total 100 ml 570 ml 200 ml OutputOutput Total 250 ml 500 ml BalanceBalance 100 ml 320 ml -300 ml Constitutional: alert (Although noted in conversation patient is going to sleep. This pattern is going on for the last couple of days after patient is getting morphine sulfate.), oriented Psych: anxiety, confusion; No no complaints, No nl mood/affect, No depression, No suicidal, No other Head: normocephalic, atraumatic; No lacerations, No hematomas, No other Eyes: EOMI, nl lids, PERRL; No nl conjunctiva, No nl sclera, No icteric, No fundi, disc, No other ENMT: nl lips & teeth; No nl external ears & nose, No nl nasal mucosa & septum, No mucosa pink and moist, No intubated, No tympanic membranes, No other Neck: jvd, bruits, thyromegaly; No supple, No non-tender, No masses, No nuchal rigidity, No other Respiratory: normal air movement, congested cough, crackles/rales, diminished breath sounds, respirations; No clear to auscultation, No intercostal retraction, No labored breathing, No tactile fremitus, No wheezing, No other Cardiovascular: regular rate and rhythm, nl pulses, bruits, edema (Right normal left lower extremity and both upper extremities left upper extremity more prominent than the right.), jugular venous distention (JVD), systolic murmur; No diastolic murmur, No gallop, No irregular rhythm, No murmurs/extra sounds, No rub, No S3, No S4, No other Gastrointestinal: soft, nl liver, spleen, bowel sounds, distended; No non-tender, No ascites, No firm, No hepatomegaly, No mass, No rebound or guarding, No splenomegaly, No surgical scars, No tender, No other Musculoskeletal: joint tenderness, muscle weakness; No nl extremities to inspection, No nl gait and stance, No muscle tone, No range of motion, No spine non-tender, No swelling, No other Extremities: normal pulses, other (Wound of the right hip area laterally is healing with a primary tension no focal erythema.); No calf tenderness, No cyanosis, No clubbing, No edema, No pitting pedal edema, No palpable cord, No tenderness 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: ORTHOTIC ASSISTANT 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, nl speech, nl strength, lethargic (On and off.); No nl mental status, No confused, No DTR's symmetric, No focal weakness, No numbness, No reflexes, No unresponsive, No other Skin: nl turgor (More on the sciatica with prominent swelling of his left upper extremity and right lower extremity mainly.); No rash or lesions, No diaphoresis, No ecchymosis, No laceration, No punc ture, No other Lymph: No nl lymph nodes, No enlarged, No nontender, No other Results Results 24hrs Laboratory Tests Test 10/09/18 08:36 White Blood Count 3.8 L Red Blood Count 3.26 L Hemoglobin 10.4 L Hematocrit 32.0 L Mean Corpuscular Volume 98.2 Mean Corpuscular Hemoglobin 31.9 Mean Corpuscular Hemoglobin Concent 32.5 Red Cell Distribution Width 18.2 H Platelet Count 164 Mean Platelet Volume 8.4 Immature Granulocytes % 0.300 Neutrophils % 53.1 Lymphocytes % 25.7 Monocytes % 13.6 H Eosinophils % 6.3 Basophils % 1.0 Nucleated Red Blood Cells % 0.0 Immature Granulocytes # 0.010 Neutrophils # 2.0 Lymphocytes # 1.0 Monocytes # 0.5 Eosinophils # 0.2 Basophils # 0.0 Nucleated Red Blood Cells # 0.0 Sodium Level 138 Potassium Level 3.9 Chloride Level 103 Carbon Dioxide Level 30 Anion Gap 5 Blood Urea Nitrogen 14 Creatinine 0.62 Est Glomerular Filtrat Rate mL/min > 60 Glucose Level 102 Calcium Level 8.5 Phosphorus Level 4.5 Magnesium Level 1.7 Medications Medication Current Medications Acetaminophen (Tylenol Tab) 500 mg Q6H PRN PO MILD PAIN(1-3)OR ELEVATED TEMP Last administered on 09/20/18 22:55; Admin Dose 500 MG; Start 09/09/18 at 22:30 Anastrozole (Arimidex) 1 mg DAILY PO Last administered on 10/09/18 09:32; Admin Dose 1 MG; Start 09/10/18 at 09:00 Carvedilol (Coreg) 3.125 mg BID PO Last administered on 10/09/18 09:31; Admin Dose 3.125 MG; Start 09/09/18 at 22:30 Docusate Sodium (Colace) 200 mg BID PO Last administered on 10/09/18 09:30; Admin Dose 200 MG; Start 09/09/18 at 22:30 Escitalopram Oxalate (Lexapro) 10 mg DAILY PO Last administered on 10/09/18 09:30; Admin Dose 10 MG; Start 09/10/18 at 09:00 Pantoprazole (Protonix Tab) 40 mg AC BREAKFAST PO Last administered on 10/09/18 06:17; Admin Dose 40 MG; Start 09/10/18 at 07:00 Polyethylene Glycol (Miralax) 17 gm BID PO Last administered on 10/09/18 09:29; Admin Dose 17 GM; Start 09/09/18 at 22:30 Spironolactone (Aldactone) 50 mg DAILY PO Last administered on 10/09/18 09:31; Admin Dose 50 MG; Start 09/13/18 at 18:00 Potassium Chloride (Klor-Con 20) 20 meq BID PO Last administered on 10/01/18 20:23; Admin Dose 20 MEQ; Start 09/15/18 at 21:00; Status Hold Albuterol/ Ipratropium (Duoneb) 3 ml Q8H RESP THERAPY PRN HHN SHORTNESS OF BREATH Last administered on 10/09/18 01:11; Admin Dose 3 ML; Start 09/15/18 at 14:30 Oxycodone HCl (Oxycontin) 20 mg Q12 PO Last administered on 10/09/18 09:30; Admin Dose 20 MG; Start 09/15/18 at 21:00 Olopatadine HCl (Patanol 0.1% Oph) 1 drop BID BOTH EYES Last administered on 10/09/18 09:27; Admin Dose 1 DROP; Start 09/16/18 at 21:00 Loratadine (Claritin) 10 mg DAILY PO Last administered on 10/09/18 09:30; Admin Dose 10 MG; Start 09/17/18 at 09:00 Lidocaine (Lidoderm) 2 patch DAILY TD Last administered on 10/06/18 09:16; Admin Dose 2 PATCH; Start 09/26/18 at 17:30 Hydromorphone HCl (Dilaudid) 0.4 mg Q2H PRN IV .PAIN 6-10 Last administered on 10/02/18 09:21; Admin Dose 0.4 MG; Start 10/01/18 at 16:30 Nalbuphine HCl (Nubain) 10 mg Q4H PRN IV .PRURITUS; Start 10/01/18 at 16:30 Naloxone HCl (Narcan) 0.2 mg Q2M PRN IV .RESP RATE; Start 10/01/18 at 16:30 Miscellaneous Information (* Miscellaneous Pharmacy Order) DURAMORPH: 0.1 MG SPI... GIVEN NEURAXIAL XX ; Start 10/01/18 at 16:30 Simethicone (Mylicon) 80 mg TID PRN PO .GAS; Start 10/01/18 at 16:30 IV Flush (NS 3 ml) 3 ml per protocol IV ; Start 10/01/18 at 16:30 Ondansetron HCl 8 mg/Dextrose 54 ml @ 212 mls/hr Q6H PRN IV NAUSEA AND/OR VOMITING Last administered on 10/05/18 07:38; Admin Dose 212 MLS/HR; Start 10/03/18 at 11:30 Morphine Sulfate (morphine) 4 mg Q2 PRN IV SEVERE PAIN LEVEL 7-10 Last administered on 10/08/18 20:12; Admin Dose 4 MG; Start 10/03/18 at 18:30 Ferric Sodium Gluconate Complex 125 mg/Sodium Chloride 110 ml @ 110 mls/hr DAILY@1300 IVPB Last administered on 10/08/18 13:14; Admin Dose 110 MLS/HR; Start 10/06/18 at 14:30; Stop 10/10/18 at 13:59 Furosemide (Lasix) 40 mg BID DIURETICS PO Last administered on 10/09/18 06:17; Admin Dose 40 MG; Start 10/07/18 at 18:00 RUSS JEROME MD Oct 09, 2018 11:06
[2018-10-09] MEDS: morphine 4 MG/ML VIAL IV PRN ×2 (12:46→22:42)
[2018-10-09] MEDS: SOD FERRIC GLUC COMPLX 125 MG in SOD CHLORIDE 0.9% 100 ML IVPB SCH (12:52)
[2018-10-09 14:00] VITALS: BP 114/66; PULSE 78; RESP 18
[2018-10-09] MEDS: ONDANSETRON INJ 8 MG in DEXTROSE 5% 50 ML IV PRN (14:33)
--- NOTE | 2018-10-09 17:17 | CONS ---
Assessment/Plan Assessment/Plan Hospital Course (Demo Recall) IMPRESSION: 1. Congestive heart failure exacerbation, diastolic by most recent echo, acute on chronic.-neg trop x 3. Echo this admit EF 60/small pericardial effusion 2. Hypotension, currently low 3. Anasarca-improved s/p additional albumin doses 4. Metastatic breast carcinoma. 5. Leukopenia. 6. Thrombocytopenia.-ongoing 7. Pericardial effusion-small by echo with no HD consequence at this time 8. Pleural effusions-recurrent. Initial cytology negative. ? PLeurodesis 9. R femoral head pathologic fracture now post-op s/p ORIF 10/02/18. and now with avulsion fracture in new place in same leg 10. [id number] requiring transfusion 11.Tachycardia-S tach by ecg 10/03. Likley driven by pain/discomfort Recc: -On med-surg -Continue Lasix diuresis -Holding additional IVF at the time -folllow K clsoely now on aldactone at this time -Continue arimidex -Follow NA on salt tabs -coreg as tolerated only -F/U cytology from thoracentesis -Pain control Consultation Date/Type/Reason Admit Date/Time Sep 09, 2018 at 14:53 Initial Consult Date 09/09/18 Type of Consult Cardiology Reason for Consultation CHF Requesting Provider: RUSS JEROME MD Date/Time of Note DATE: 10/09/18 TIME: 17:14 Exam/Review of Systems Vital Signs Vitals Vital Signs Date Temp Pulse Resp B/P (MAP) Pulse Ox O2 O2 Flow FiO2 Time Delivery Rate 10/09/18 98.5 80 18 116/64 93 Room Air 07:54 (81) 10/09/18 2.0 07:45 Intake and Output 10/08/18 10/08/18 10/09/18 1515:00 23:00 07:00 IntakeIntake Total 100 ml 570 ml 200 ml OutputOutput Total 250 ml 500 ml BalanceBalance 100 ml 320 ml -300 ml Exam Exam Review of Systems: CONSTITUTIONAL: No fevers, chills. PULMONARY: No sob CARDIOVASCULAR: No chest pain/palpitations GASTROINTESTINAL: No nausea/vomiting. GENITOURINARY: No hematuria/dysuria. MUSCULOSKELETAL: No myagias/arthalgias. PSYCHIATRIC: The patient denies depression. NEUROLOGIC: No weakness Constitutional: alert Psych: no complaints Head: normocephalic ENMT: mucosa pink and moist Neck: supple, jvd (9 cm water) Respiratory: diminished breath sounds (at bases/B) Cardiovascular: regular rate and rhythm Gastrointestinal: soft, non-tender Musculoskeletal: muscle tone (normal) Extremities: pitting pedal edema (bilateral) 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: other (No focal deficits) Labs Result Diagram: 10/09/18 0836 10/09/18 0836 Results 24hrs Laboratory Tests Test 10/09/18 08:36 White Blood Count 3.8 L Red Blood Count 3.26 L Hemoglobin 10.4 L Hematocrit 32.0 L Mean Corpuscular Volume 98.2 Mean Corpuscular Hemoglobin 31.9 Mean Corpuscular Hemoglobin Concent 32.5 Red Cell Distribution Width 18.2 H Platelet Count 164 Mean Platelet Volume 8.4 Immature Granulocytes % 0.300 Neutrophils % 53.1 Lymphocytes % 25.7 Monocytes % 13.6 H Eosinophils % 6.3 Basophils % 1.0 Nucleated Red Blood Cells % 0.0 Immature Granulocytes # 0.010 Neutrophils # 2.0 Lymphocytes # 1.0 Monocytes # 0.5 Eosinophils # 0.2 Basophils # 0.0 Nucleated Red Blood Cells # 0.0 Sodium Level 138 Potassium Level 3.9 Chloride Level 103 Carbon Dioxide Level 30 Anion Gap 5 Blood Urea Nitrogen 14 Creatinine 0.62 Est Glomerular Filtrat Rate mL/min > 60 Glucose Level 102 Calcium Level 8.5 Phosphorus Level 4.5 Magnesium Level 1.7 Medications Medications Current Medications Acetaminophen (Tylenol Tab) 500 mg Q6H PRN PO MILD PAIN(1-3)OR ELEVATED TEMP Last administered on 09/20/18at 22:55; Admin Dose 500 MG; Start 09/09/18 at 22:30 Anastrozole (Arimidex) 1 mg DAILY PO Last administered on 10/09/18 09:32; Admin Dose 1 MG; Start 09/10/18 at 09:00 Carvedilol (Coreg) 3.125 mg BID PO Last administered on 10/09/18 09:31; Admin Dose 3.125 MG; Start 09/09/18 at 22:30 Docusate Sodium (Colace) 200 mg BID PO Last administered on 10/09/18at 09:30; Admin Dose 200 MG; Start 09/09/18 at 22:30 Escitalopram Oxalate (Lexapro) 10 mg DAILY PO Last administered on 10/09/18 09:30; Admin Dose 10 MG; Start 09/10/18 at 09:00 Pantoprazole (Protonix Tab) 40 mg AC BREAKFAST PO Last administered on 10/09/18 06:17; Admin Dose 40 MG; Start 09/10/18 at 07:00 Polyethylene Glycol (Miralax) 17 gm BID PO Last administered on 10/09/18 09:29; Admin Dose 17 GM; Start 09/09/18 at 22:30 Spironolactone (Aldactone) 50 mg DAILY PO Last administered on 10/09/18 09:31; Admin Dose 50 MG; Start 09/13/18 at 18:00 Potassium Chloride (Klor-Con 20) 20 meq BID PO Last administered on 10/01/18 20:23; Admin Dose 20 MEQ; Start 09/15/18 at 21:00; Status Hold Albuterol/ Ipratropium (Duoneb) 3 ml Q8H RESP THERAPY PRN HHN SHORTNESS OF BREATH Last administered on 10/09/18 01:11; Admin Dose 3 ML; Start 09/15/18 at 14:30 Oxycodone HCl (Oxycontin) 20 mg Q12 PO Last administered on 10/09/18 09:30; Admin Dose 20 MG; Start 09/15/18 at 21:00 Olopatadine HCl (Patanol 0.1% Oph) 1 drop BID BOTH EYES Last administered on 10/09/18 09:27; Admin Dose 1 DROP; Start 09/16/18 at 21:00 Loratadine (Claritin) 10 mg DAILY PO Last administered on 10/09/18 09:30; Admin Dose 10 MG; Start 09/17/18 at 09:00 Lidocaine (Lidoderm) 2 patch DAILY TD Last administered on 10/06/18 09:16; Admin Dose 2 PATCH; Start 09/26/18 at 17:30 Hydromorphone HCl (Dilaudid) 0.4 mg Q2H PRN IV .PAIN 6-10 Last administered on 10/02/18 09:21; Admin Dose 0.4 MG; Start 10/01/18 at 16:30 Nalbuphine HCl (Nubain) 10 mg Q4H PRN IV .PRURITUS; Start 10/01/18 at 16:30 Naloxone HCl (Narcan) 0.2 mg Q2M PRN IV .RESP RATE; Start 10/01/18 at 16:30 Miscellaneous Information (* Miscellaneous Pharmacy Order) DURAMORPH: 0.1 MG SPI... GIVEN NEURAXIAL XX ; Start 10/01/18 at 16:30 Simethicone (Mylicon) 80 mg TID PRN PO .GAS; Start 10/01/18 at 16:30 IV Flush (NS 3 ml) 3 ml per protocol IV ; Start 10/01/18 at 16:30 Ondansetron HCl 8 mg/Dextrose 54 ml @ 212 mls/hr Q6H PRN IV NAUSEA AND/OR VOMITING Last administered on 10/09/18at 14:33; Admin Dose 212 MLS/HR; Start 10/03/18 at 11:30 Morphine Sulfate (morphine) 4 mg Q2 PRN IV SEVERE PAIN LEVEL 7-10 Last administered on 10/09/18at 12:46; Admin Dose 4 MG; Start 10/03/18 at 18:30 Ferric Sodium Gluconate Complex 125 mg/Sodium Chloride 110 ml @ 110 mls/hr DAILY@1300 IVPB Last administered on 10/09/18at 12:52; Admin Dose 110 MLS/HR; Start 10/06/18 at 14:30; Stop 10/10/18 at 13:59 Furosemide (Lasix) 40 mg BID DIURETICS PO Last administered on 10/09/18at 06:17; Admin Dose 40 MG; Start 10/07/18 at 18:00 KAMILA TERESA Oct 09, 2018 17:17
[2018-10-09 19:25] VITALS: BP 107/64; PULSE 89; RESP 20
[2018-10-09] MEDS ORDERED: OLOPATADINE 0.1% 5 ML OPH BOTH EYES SCH (21:00)
[2018-10-10] MEDS: morphine 4 MG/ML VIAL IV PRN ×3 (01:33→13:57)
[2018-10-10 02:15] VITALS: BP 93/59; PULSE 97; RESP 20
[2018-10-10] MEDS: PANTOPRAZOLE (EC) 40 MG TAB PO SCH (06:34)
[2018-10-10] MEDS: FUROSEMIDE 40 MG TAB PO SCH ×2 (06:34→17:34)
[2018-10-10 08:18] VITALS: BP 123/74; PULSE 59; RESP 18
[2018-10-10] MEDS: OLOPATADINE 0.1% 5 ML OPH BOTH EYES SCH ×2 (09:16→20:27)
[2018-10-10] MEDS: POLYETHYLENE GLYCOL 17 GM PACKET PO SCH ×2 (09:16→21:00)
[2018-10-10] MEDS: ESCITALOPRAM 10 MG TAB PO SCH (09:17)
[2018-10-10] MEDS: SPIRONOLACTONE 50 MG TAB PO SCH (09:17)
[2018-10-10] MEDS: DOCUSATE SODIUM 100 MG CAP PO SCH ×2 (09:17→20:23)
[2018-10-10] MEDS: LORATADINE 10 MG TAB PO SCH (09:17)
[2018-10-10] MEDS: ANASTROZOLE 1 MG TAB PO SCH (09:18)
[2018-10-10] MEDS: LIDOCAINE 5% PATCH TD SCH (09:20)
[2018-10-10] MEDS: oxyCODONE (CR) 10 MG TAB [oxyCONTIN] PO SCH ×2 (09:23→20:24)
--- NOTE | 2018-10-10 09:38 | PN ---
DATE: 10/10/2018 SUBJECTIVE: The patient is stable, no events overnight. OBJECTIVE: VITAL SIGNS: Blood pressure is 123/74, pulse 59, respirations 18, temperature 98.5. HEENT: Head is normocephalic. NECK: Supple. HEART: Regular rate. LUNGS: Show diminished breath sounds at the base. ABDOMEN: Soft, nontender to palpation without rebound or guarding. EXTREMITIES: Negative for clubbing, cyanosis. Positive edema. DERMATOLOGIC: No rashes. MUSCULOSKELETAL: No joint effusion. NEUROLOGIC: No change in exam. MEDICATIONS: Reviewed. LABORATORY DATA: Reviewed. The patient's BMP is within normal limits. ASSESSMENT AND PLAN: 1. Hypernatremia, resolved. Continue current treatment plan. Continue to limit free water intake. Continue diuretic therapy. The patient salt tablets were discontinued. 2. Volume overload secondary to heart failure and third spacing. Continue medical management. Cont inue diuretic therapy. 3. Hypokalemia, improved. 4. Left breast cancer with metastasis. Continue to monitor. 5. History of pleural effusion. Continue to monitor. The patient is status post thoracentesis. 6. Right hip fracture, status post arthroplasty. Continue physical therapy. 7. Chronic pain syndrome. 8. Respiratory failure. Continue medical management. Continue supplemental oxygen. 9. Anemia. Continue to monitor hemoglobin and hematocrit levels. 10. We will follow the patient as needed. Dictated By: ANDRÉS YO/NTS Conf#: [id number] DID#: [id number] CC: RUSS JEROME MD;*EndCC*
--- NOTE | 2018-10-10 09:58 | PN ---
Date/Time of Note Date/Time of Note DATE: 10/10/18 TIME: 09:53 Assessment/Plan VTE Prophylaxis Risk score (from Ns)>0 risk: 12 SCD applied (from Ns): Yes Pharmacological prophylaxis: LMWH Lines/Catheters IV [facility]ter [facility]from [facility] PORT-A-CATH Central line still needed: No Urinary Cath still in place: No Assessment/Plan Hospital Course S/p recurrent thoracentesis with re-occultation of fluid. By calculating patient's preoperative risk the patient is in mild to moderate cardiac risk category. Due to of multiple vertebral fractures handling of the patient's body on the operative table must be extremely careful. Extra dose of Lasix will be given now to diurese the patient which looks slightly more congested comparing with the yesterday's white having anasarca. No contraindications to surgery. Assessment/Plan S/p recurrent thoracentesis with re-occultation of fluid. Assessment/Plan 1. PRIMARY ADENOCARCINOMA of the left breast. MULTIPLE BONY METS, PULMONARY METS;LIVER METS CHEMO ON HOLD; PT HAS A VERY GOOD RESPONSE TO CHEMO AND AI 2. Severe pain in the interscapular and lumbar sacral area most probably metastatic lesion possible femoral fracture. pathologic fracture of T9 with 60% of loss of height. Neurosurgical f/u. 3. Obesity. 4. Weight loss 60 pounds during the last 2 years by diet 5. PMS. 6. Myopia. 7. Anemia chronic disease with a drop of her hematocrit to 27; 1 units of pac ked RBC plan to transfuse. Latest results 28. Will recheck tomorrow; Leukopenia.Thrombocytopenia; 8. Anxiety disorder. Claustrophobia. Increase Ativan to 1 mg every 8 as need ed at Lexapro 10 mg daily. 9. Posttraumatic stress disorder. 10. Pain in the left forearm with a history of fracture of ulna and radius. 11. Tachycardia 12. Hypoxemia at night marginal improved after 2 L of nasal cannula oxygen. 13. Deconditioning 14. 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 MRI: 09/28/18:diffuse osseous metastatic disease with multiple pathologic compression fractures at least involving the T4, T5, T7, T9 and T11 levels. There is likely mild cortical breakthrough at several levels resulting in mild central canal narrowing. No gross evidence of cord compression is seen.. 15. Pain syndrome. Today the most painful zone is in the right hip area. 16. Hyponatremia-corrected; hypokalemia now hyperkalemic 5.2 hold potassium p.o. today and hold Aldactone today.Recheck and sodium chloride daily with the dose to 4 mg today 17. Leucopenia-improved. 18. Neutropenia with occasional fever and chills. Last chemotherapy 5 days ago. 19. Hypoalbuminemia. 20.Right sided cp after catheter insertion and correction less disco mfort. 21. Decreased edema both lower extremities with jlgnrycgnye-bphlmceux-Jsqighol with Pleural and Pericardial effusion. 22. pain syndrome 23.bilateral pleural effusions ; s/p left thoracentesis, During the procedure the probe of the u/s was placed to the right side of the chest which showed only minimal amount of liquid on the right pleural cavity. 24. Systolic over diastolic congestive heart failure with a right more than left lower extremity swelling with no DVT in latest venous Doppler. 25. Swelling of the left forearm-persist. Cellulitis of the left forearm with increased edema anteriorly.-Today it is less edematous 26. Pathologic fracture of the right hip;s/p hemiarthroplasty of right hip . 27. Right temporomandibular joint arthritis and right ear pain new-onset. Result Diagram: Result Diagram: 10/10/18 0429 10/10/18 0429 Results 24hrs Laboratory Tests Test 10/10/18 04:29 White Blood Count 5.5 # Red Blood Count 3.49 L Hemoglobin 10.9 L Hematocrit 34.2 L Mean Corpuscular Volume 98.0 Mean Corpuscular Hemoglobin 31.2 Mean Corpuscular Hemoglobin Concent 31.9 L Red Cell Distribution Width 18.1 H Platelet Count 185 Mean Platelet Volume 9.0 Immature Granulocytes % 0.000 L Neutrophils % 59.2 Lymphocytes % 19.6 Monocytes % 14.6 H Eosinophils % 5.7 Basophils % 0.9 Nucleated Red Blood Cells % 0.0 Immature Granulocytes # 0.000 Neutrophils # 3.2 Lymphocytes # 1.1 Monocytes # 0.8 Eosinophils # 0.3 Basophils # 0.1 Nucleated Red Blood Cells # 0.0 Sodium Level 137 Potassium Level 4.2 Chloride Level 101 Carbon Dioxide Level 30 Anion Gap 6 Blood Urea Nitrogen 15 Creatinine 0.57 Est Glomerular Filtrat Rate mL/min > 60 Glucose Level 104 Calcium Level 8.5 Phosphorus Level 4.8 Magnesium Level 1.7 Subjective 24 Hr Interval Summary Free Text/Dictation Painful right ear right TMJ area worse while chewing. Constitutional: improved, disoriented, poor po, requiring O2; No no complaints, No chills, No diaphoresis, No febrile, No requiring IVF, No other Eyes: No no complaints, No pain, No discharge, No redness, No visual change, No other ENT: other (Pain of the right ear and right TMJ area.); No no complaints, No bleeding, No pain, No congestion, No discharge, No dysphagia, No sore throat Respiratory: cough, pleuritic pain, shortness of breath, sputum; No no complaints, No pain, No wheezing, No other Cardiovascular: chest pain; No no complaints, No edema, No lightheadedness, No orthopenea, No palpitations, No paroxysmal nocturnal dyspnea, No other Gastrointestinal: constipation, decreased appetite, flatus, nausea, passing stool; No no complaints, No pain, No blood, No diarrhea, No vomiting, No other Genitourinary: dysuria, flank pain; No no complaints, No bleeding, No discharge, No hematuria, No other Musculoskeletal: back pain, bone/joint pain; No no complaints, No neck pain, No restricted range of motion, No swelling, No other Skin: No no complaints, No bruising, No erythema, No laceration, No pruritis, No rash, No skin lesions, No other Neurologic: No no complaints, No confusion, No dizziness, No focal-weakness, No headache, No syncope, No seizure, No other Endocrine: polyuria, dry skin; No no complaints, No polydypsia, No temp intolerance, No other Lymphatic: No no complaints, No adenopathy, No tender nodes, No lymphadema, No other Psychological: anxiety, depression; No no complaints, No nl mood/affect, No confusion, No suicidal, No other Exam/Review of Systems Exam Vitals Vital Signs Date Temp Pulse Resp B/P (MAP) Pulse Ox O2 O2 Flow FiO2 Time Delivery Rate 10/10/18 98.5 59 18 123/74 94 08:18 (90) 10/10/18 2.0 06:12 10/09/18 Nasal 23:18 Cannula Intake and Output 10/09/18 10/09/18 10/10/18 1515:00 23:00 07:00 IntakeIntake Total 964 ml OutputOutput Total 1 ml BalanceBalance 963 ml Constitutional: alert, oriented, well developed, distress, frail, obese Psych: anxiety; No no complaints, No nl mood/affect, No confusion, No depression, No suicidal, No other Head: normocephalic, atraumatic; No lacerations, No hematomas, No other Eyes: EOMI, nl lids, PERRL; No nl conjunctiva, No nl sclera, No icteric, No fundi, disc, No other ENMT: nl nasal mucosa & septum, other (Painful right ear and right TMJ area. Pain is worse while opening and closing mouth. No pain in the left TMJ area); No nl external ears & nose, No nl lips & teeth, No mucosa pink and moist, No intubated, No tympanic membranes Neck: jvd, bruits, thyromegaly, nuchal rigidity; No supple, No non-tender, No masses, No other Respiratory: normal air movement, congested cough, diminished breath sounds, labored breathing; No clear to auscultation, No crackles/rales, No intercostal retraction, No respirations, No tactile fremitus, No wheezing, No other Cardiovascular: bruits, diastolic murmur, jugular venous distention (JVD); No regular rate and rhythm, No nl pulses, No edema, No gallop, No irregular rhythm, No murmurs/extra sounds, No rub, No systolic murmur, No S3, No S4, No other Gastrointestinal: soft, nl liver, spleen, bowel sounds, distended; No non-tender, No ascites, No firm, No hepatomegaly, No mass, No rebound or guarding, No splenomegaly, No surgical scars, No tender, No other Musculoskeletal: nl gait and stance (Able to get up and move onto the toilet. Making a progress.), joint tenderness, muscle tone; No nl extremities to inspection, No muscle weakness, No range of motion, No spine non-tender, No swelling, No other Extremities: normal pulses, edema; No calf tenderness, No cyanosis, No clubbing, No pitting pedal edema, No palpable cord, No tenderness, No other 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: [employer]OUNT [employer] 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, confused; No nl mental status, No nl speech, No nl strength, No DTR's symmetric, No focal weakness, No lethargic, No numbness, No reflexes, No unresponsive, No other Skin: nl turgor; No rash or lesions, No diaphoresis, No ecchymosis, No laceration, No puncture, No other Lymph: No nl lymph nodes, No enlarged, No nontender, No other Results Results 24hrs Laboratory Tests Test 10/10/18 04:29 White Blood Count 5.5 # Red Blood Count 3.49 L Hemoglobin 10.9 L Hematocrit 34.2 L Mean Corpuscular Volume 98.0 Mean Corpuscular Hemoglobin 31.2 Mean Corpuscular Hemoglobin Concent 31.9 L Red Cell Distribution Width 18.1 H Platelet Count 185 Mean Platelet Volume 9.0 Immature Granulocytes % 0.000 L Neutrophils % 59.2 Lymphocytes % 19.6 Monocytes % 14.6 H Eosinophils % 5.7 Basophils % 0.9 Nucleated Red Blood Cells % 0.0 Immature Granulocytes # 0.000 Neutrophils # 3.2 Lymphocytes # 1.1 Monocytes # 0.8 Eosinophils # 0.3 Basophils # 0.1 Nucleated Red Blood Cells # 0.0 Sodium Level 137 Potassium Level 4.2 Chloride Level 101 Carbon Dioxide Level 30 Anion Gap 6 Blood Urea Nitrogen 15 Creatinine 0.57 Est Glomerular Filtrat Rate mL/min > 60 Glucose Level 104 Calcium Level 8.5 Phosphorus Level 4.8 Magnesium Level 1.7 Medications Medication Current Medications Acetaminophen (Tylenol Tab) 500 mg Q6H PRN PO MILD PAIN(1-3)OR ELEVATED TEMP Last administered on 09/20/18 22:55; Admin Dose 500 MG; Start 09/09/18 at 22:30 Anastrozole (Arimidex) 1 mg DAILY PO Last administered on 10/10/18 09:18; Admin Dose 1 MG; Start 09/10/18 at 09:00 Carvedilol (Coreg) 3.125 mg BID PO Last administered on 10/10/18 09:19; Admin Dose 3.125 MG; Start 09/09/18 at 22:30 Docusate Sodium (Colace) 200 mg BID PO Last administered on 10/10/18 09:17; Admin Dose 200 MG; Start 09/09/18 at 22:30 Escitalopram Oxalate (Lexapro) 10 mg DAILY PO Last administered on 10/10/18 09:17; Admin Dose 10 MG; Start 09/10/18 at 09:00 Pantoprazole (Protonix Tab) 40 mg AC BREAKFAST PO Last administered on 10/10/18 06:34; Admin Dose 40 MG; Start 09/10/18 at 07:00 Polyethylene Glycol (Miralax) 17 gm BID PO Last administered on 10/10/18 09:16; Admin Dose 17 GM; Start 09/09/18 at 22:30 Spironolactone (Aldactone) 50 mg DAILY PO Last administered on 10/10/18 09:17; Admin Dose 50 MG; Start 09/13/18 at 18:00 Potassium Chloride (Klor-Con 20) 20 meq BID PO Last administered on 10/01/18 20:23; Admin Dose 20 MEQ; Start 09/15/18 at 21:00; Status Hold Albuterol/ Ipratropium (Duoneb) 3 ml Q8H RESP THERAPY PRN HHN SHORTNESS OF BREATH Last administered on 10/09/18 23:15; Admin Dose 3 ML; Start 09/15/18 at 14:30 Oxycodone HCl (Oxycontin) 20 mg Q12 PO Last administered on 10/10/18 09:23; Admin Dose 20 MG; Start 09/15/18 at 21:00 Olopatadine HCl (Patanol 0.1% Oph) 1 drop BID BOTH EYES Last administered on 10/10/18 09:16; Admin Dose 1 DROP; Start 09/16/18 at 21:00 Loratadine (Claritin) 10 mg DAILY PO Last administered on 10/10/18 09:17; Admin Dose 10 MG; Start 09/17/18 at 09:00 Lidocaine (Lidoderm) 2 patch DAILY TD Last administered on 10/10/18 09:20; Admin Dose 2 PATCH; Start 09/26/18 at 17:30 Hydromorphone HCl (Dilaudid) 0.4 mg Q2H PRN IV .PAIN 6-10 Last administered on 10/02/18 09:21; Admin Dose 0.4 MG; Start 10/01/18 at 16:30 Nalbuphine HCl (Nubain) 10 mg Q4H PRN IV .PRURITUS; Start 10/01/18 at 16:30 Naloxone HCl (Narcan) 0.2 mg Q2M PRN IV .RESP RATE; Start 10/01/18 at 16:30 Simethicone (Mylicon) 80 mg TID PRN PO .GAS; Start 10/01/18 at 16:30 IV Flush (NS 3 ml) 3 ml per protocol IV ; Start 10/01/18 at 16:30 Ondansetron HCl 8 mg/Dextrose 54 ml @ 212 mls/hr Q6H PRN IV NAUSEA AND/OR VOMITING Last administered on 10/09/18at 14:33; Admin Dose 212 MLS/HR; Start 10/03/18 at 11:30 Morphine Sulfate (morphine) 4 mg Q2 PRN IV SEVERE PAIN LEVEL 7-10 Last admini stered on 10/10/18at 06:38; Admin Dose 4 MG; Start 10/03/18 at 18:30 Ferric Sodium Gluconate Complex 125 mg/Sodium Chloride 110 ml @ 110 mls/hr DAILY@1300 IVPB Last administered on 10/09/18at 12:52; Admin Dose 110 MLS/HR; Start 10/06/18 at 14:30; Stop 10/10/18 at 13:59 Furosemide (Lasix) 40 mg BID DIURETICS PO Last administered on 10/10/18at 06:34; Admin Dose 40 MG; Start 10/07/18 at 18:00 Ciprofloxacin HCl (Ciprofloxacin HCl Otic) 2 drop TID RIGHT EAR ; Start 10/10/18 at 09:00 Miscellaneous Information (*Order Clarification Bulletin) MEDICATION REQUIRES CLARIFICATI... Q8H XX ; Start 10/10/18 at 09:30 Indomethacin (Indocin) 50 mg TID PO ; Start 10/10/18 at 10:30 Anastrozole (Arimidex) 1 mg DAILY PO ; Start 10/11/18 at 09:00; Status UNRUSS FRY MD Oct 10, 2018 09:58
[2018-10-10] MEDS ORDERED: INDOMETHACIN 25 MG PO SCH (10:30)
[2018-10-10] MEDS: CIPROFLOXACIN HCL OTIC DROP 0.25 ML RIGHT EAR SCH ×3 (13:00→20:23)
--- NOTE | 2018-10-10 13:49 | CONS ---
Assessment/Plan Assessment/Plan Hospital Course (Demo Recall) IMPRESSION: 1. Congestive heart failure exacerbation, diastolic by most recent echo, acute on chronic.-neg trop x 3. Echo this admit EF 60/small pericardial effusion 2. Hypotension, currently low 3. Anasarca-improved s/p additional albumin doses 4. Metastatic breast carcinoma. 5. Leukopenia. 6. Thrombocytopenia.-ongoing 7. Pericardial effusion-small by echo with no HD consequence at this time 8. Pleural effusions-recurrent. Initial cytology negative. ? PLeurodesis 9. R femoral head pathologic fracture now post-op s/p ORIF 10/02/18. and now with avulsion fracture in new place in same leg 10. [id number] requiring transfusion 11.Tachycardia-S tach by ecg 10/03. Likley driven by pain/discomfort Recc: -On med-surg -Continue Lasix diuresis BID -folllow K clsoely now on aldactone at this time -Continue arimidex -Follow NA on salt tabs -coreg as tolerated only -F/U cytology from thoracentesis -Pain control Consultation Date/Type/Reason Admit Date/Time Sep 09, 2018 at 14:53 Initial Consult Date 09/09/18 Type of Consult Cardiology Reason for Consultation CHF Requesting Provider: RUSS JEROME MD Date/Time of Note DATE: 10/10/18 TIME: 13:47 Exam/Review of Systems Vital Signs Vitals Vital Signs Date Temp Pulse Resp B/P (MAP) Pulse Ox O2 O2 Flow FiO2 Time Delivery Rate 10/10/18 98.5 59 18 123/74 94 08:18 (90) 10/10/18 2.0 06:12 10/09/18 Nasal 23:18 Cannula Intake and Output 10/09/18 10/09/18 10/10/18 1515:00 23:00 07:00 IntakeIntake Total 964 ml OutputOutput Total 1 ml BalanceBalance 963 ml Exam Exam Review of Systems: CONSTITUTIONAL: No fevers, chills. PULMONARY: No sob CARDIOVASCULAR: No chest pain/palpitations GASTROINTESTINAL: No nausea/vomiting. GENITOURINARY: No hematuria/dysuria. MUSCULOSKELETAL:pain in leg PSYCHIATRIC: The patient denies depression. NEUROLOGIC: No weakness Constitutional: alert Psych: no complaints Head: normocephalic ENMT: mucosa pink and moist Neck: supple, jvd (9 cm water) Respiratory: clear to auscultation Cardiovascular: regular rate and rhythm Gastrointestinal: soft, non-tender Musculoskeletal: muscle weakness (mild generalized) Extremities: edema (bilateral LE) Labs Result Diagram: 10/10/1842810/10/18428 Results 24hrs Laboratory Tests Test 10/10/18 04:29 White Blood Count 5.5 # Red Blood Count 3.49 L Hemoglobin 10.9 L Hematocrit 34.2 L Mean Corpuscular Volume 98.0 Mean Corpuscular Hemoglobin 31.2 Mean Corpuscular Hemoglobin Concent 31.9 L Red Cell Distribution Width 18.1 H Platelet Count 185 Mean Platelet Volume 9.0 Immature Granulocytes % 0.000 L Neutrophils % 59.2 Lymphocytes % 19.6 Monocytes % 14.6 H Eosinophils % 5.7 Basophils % 0.9 Nucleated Red Blood Cells % 0.0 Immature Granulocytes # 0.000 Neutrophils # 3.2 Lymphocytes # 1.1 Monocytes # 0.8 Eosinophils # 0.3 Basophils # 0.1 Nucleated Red Blood Cells # 0.0 Sodium Level 137 Potassium Level 4.2 Chloride Level 101 Carbon Dioxide Level 30 Anion Gap 6 Blood Urea Nitrogen 15 Creatinine 0.57 Est Glomerular Filtrat Rate mL/min > 60 Glucose Level 104 Calcium Level 8.5 Phosphorus Level 4.8 Magnesium Level 1.7 Medications Medications Current Medications Acetaminophen (Tylenol Tab) 500 mg Q6H PRN PO MILD PAIN(1-3)OR ELEVATED TEMP Last administered on 09/20/18 22:55; Admin Dose 500 MG; Start 09/09/18 at 22:30 Carvedilol (Coreg) 3.125 mg BID PO Last administered on 10/10/18 09:19; Admin Dose 3.125 MG; Start 09/09/18 at 22:30 Docusate Sodium (Colace) 200 mg BID PO Last administered on 10/10/18 09:17; Admin Dose 200 MG; Start 09/09/18 at 22:30 Escitalopram Oxalate (Lexapro) 10 mg DAILY PO Last administered on 10/10/18 09:17; Admin Dose 10 MG; Start 09/10/18 at 09:00 Pantoprazole (Protonix Tab) 40 mg AC BREAKFAST PO Last administered on 10/10/18at 06:34; Admin Dose 40 MG; Start 09/10/18 at 07:00 Polyethylene Glycol (Miralax) 17 gm BID PO Last administered on 10/10/18 09:16; Admin Dose 17 GM; Start 09/09/18 at 22:30 Spironolactone (Aldactone) 50 mg DAILY PO Last administered on 10/10/18 09:17; Admin Dose 50 MG; Start 09/13/18 at 18:00 Potassium Chloride (Klor-Con 20) 20 meq BID PO Last administered on 10/01/18 20:23; Admin Dose 20 MEQ; Start 09/15/18 at 21:00; Status Hold Albuterol/ Ipratropium (Duoneb) 3 ml Q8H RESP THERAPY PRN HHN SHORTNESS OF BREATH Last administered on 10/09/18 23:15; Admin Dose 3 ML; Start 09/15/18 at 14:30 Oxycodone HCl (Oxycontin) 20 mg Q12 PO Last administered on 10/10/18 09:23; Admin Dose 20 MG; Start 09/15/18 at 21:00 Olopatadine HCl (Patanol 0.1% Oph) 1 drop BID BOTH EYES Last administered on 10/10/18 09:16; Admin Dose 1 DROP; Start 09/16/18 at 21:00 Loratadine (Claritin) 10 mg DAILY PO Last administered on 10/10/18 09:17; Admin Dose 10 MG; Start 09/17/18 at 09:00 Lidocaine (Lidoderm) 2 patch DAILY TD Last administered on 10/10/18 09:20; Admin Dose 2 PATCH; Start 09/26/18 at 17:30 Hydromorphone HCl (Dilaudid) 0.4 mg Q2H PRN IV .PAIN 6-10 Last administered on 10/02/18 09:21; Admin Dose 0.4 MG; Start 10/01/18 at 16:30 Nalbuphine HCl (Nubain) 10 mg Q4H PRN IV .PRURITUS; Start 10/01/18 at 16:30 Naloxone HCl (Narcan) 0.2 mg Q2M PRN IV .RESP RATE; Start 10/01/18 at 16:30 Simethicone (Mylicon) 80 mg TID PRN PO .GAS; Start 10/01/18 at 16:30 IV Flush (NS 3 ml) 3 ml per protocol IV ; Start 10/01/18 at 16:30 Ondansetron HCl 8 mg/Dextrose 54 ml @ 212 mls/hr Q6H PRN IV NAUSEA AND/OR VOMITING Last administered on 10/09/18at 14:33; Admin Dose 212 MLS/HR; Start 10/03/18 at 11:30 Morphine Sulfate (morphine) 4 mg Q2 PRN IV SEVERE PAIN LEVEL 7-10 Last administered on 10/10/18at 06:38; Admin Dose 4 MG; Start 10/03/18 at 18:30 Ferric Sodium Gluconate Complex 125 mg/Sodium Chloride 110 ml @ 110 mls/hr DAILY@1300 IVPB Last administered on 10/09/18at 12:52; Admin Dose 110 MLS/HR; Start 10/06/18 at 14:30; Stop 10/10/18 at 13:59 Furosemide (Lasix) 40 mg BID DIURETICS PO Last administered on 10/10/18at 06:34; Admin Dose 40 MG; Start 10/07/18 at 18:00 Ciprofloxacin HCl (Ciprofloxacin HCl Otic) 2 drop TID RIGHT EAR ; Start 10/10/18 at 09:00 Miscellaneous Information (*Order Clarification Bulletin) MEDICATION REQUIRES CLARIFICATI... Q8H XX ; Start 10/10/18 at 09:30 Indomethacin (Indocin) 50 mg TID PO ; Start 10/10/18 at 10:30 Anastrozole (Arimidex) 1 mg DAILY PO ; Start 10/11/18 at 09:00 KAMILA TERESA Oct 10, 2018 13:49
[2018-10-10] MEDS: INDOMETHACIN 50 MG PO SCH ×3 (13:56→20:23)
[2018-10-10] MEDS: SOD FERRIC GLUC COMPLX 125 MG in SOD CHLORIDE 0.9% 100 ML IVPB SCH (13:57)
[2018-10-10 14:44] VITALS: BP 112/77; PULSE 99; RESP 18
[2018-10-10 19:50] VITALS: BP 102/75; PULSE 97; RESP 18
[2018-10-11] VITALS (7 sets, daily range): BP systolic 95–140; BP diastolic 55–64; PULSE 65–85; RESP 18
[2018-10-11] MEDS: PANTOPRAZOLE (EC) 40 MG TAB PO SCH (05:43)
[2018-10-11] MEDS: morphine 4 MG/ML VIAL IV PRN ×2 (05:43→10:57)
[2018-10-11] MEDS: FUROSEMIDE 40 MG TAB PO SCH ×2 (06:00→17:51)
[2018-10-11] MEDS: SPIRONOLACTONE 50 MG TAB PO SCH (09:00)
[2018-10-11] MEDS: OLOPATADINE 0.1% 5 ML OPH BOTH EYES SCH ×2 (09:09→20:51)
[2018-10-11] MEDS: oxyCODONE (CR) 10 MG TAB [oxyCONTIN] PO SCH ×2 (09:10→20:54)
[2018-10-11] MEDS: INDOMETHACIN 50 MG PO SCH ×3 (09:11→20:51)
[2018-10-11] MEDS: ESCITALOPRAM 10 MG TAB PO SCH (09:12)
[2018-10-11] MEDS: DOCUSATE SODIUM 100 MG CAP PO SCH ×2 (09:12→20:51)
[2018-10-11] MEDS: LORATADINE 10 MG TAB PO SCH (09:13)
[2018-10-11] MEDS: CIPROFLOXACIN HCL OTIC DROP 0.25 ML RIGHT EAR SCH ×3 (09:16→20:53)
[2018-10-11] MEDS: POLYETHYLENE GLYCOL 17 GM PACKET PO SCH ×2 (09:19→20:53)
[2018-10-11] MEDS: LIDOCAINE 5% PATCH TD SCH (09:19)
--- NOTE | 2018-10-11 09:27 | PN ---
Date/Time of Note Date/Time of Note DATE: 10/11/18 TIME: 09: Assessment/Plan VTE Prophylaxis Risk score (from Nsg)>0 risk: 12 SCD applied (from Ns): Yes SCD contraindicated: other (on.) Pharmacological prophylaxis: other (no) Pharm contraindication: low risk/ambulating, other (walks.) Lines/Catheters IV Catheter Type (from Nrs): Peripheral IV Central line still needed: No Urinary Cath still in place: No Reason Cath still needed: urinary retention Assessment/Plan Assessment/Plan Assessment/Plan Hemiarthroplasty of the right hip 10/01/[address] Shane. S/p recurrent thoracentesis with re-occultation of fluid. Assessment/Plan 1. PRIMARY ADENOCARCINOMA of the left breast. MULTIPLE BONY METS, PULMONARY METS;LIVER METS CHEMO ON HOLD; PT HAS A VERY GOOD RESPONSE TO CHEMO AND AI 2. Severe pain in the interscapular and lumbar sacral area most probably metastatic lesion possible femoral fracture. pathologic fracture of T9 with 60% of loss of height. Neurosurgical f/u. 3. Obesity. 4. Weight loss 60 pounds during the last 2 years by diet 5. PMS. 6. Myopia. 7. Anemia chronic disease with a drop of her hematocrit to 27; Latest results 28. Will recheck tomorrow;Leukopenia.Thrombocytopenia; 8. Anxiety disorder. Claustrophobia. Increase Ativan to 1 mg every 8 as needed at Lexapro 10 mg daily. 9. Posttraumatic stress disorder. 10. Pain in the left forearm with a history of fracture of ulna and radius. 11. Tachycardia 12. Hypoxemia at night marginal improved after 2 L of nasal cannula oxygen. 13. Deconditioning 14. 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 MRI: 09/28/18:diffuse osseous metastatic disease with multiple pathologic compression fractures at least involving the T4, T5, T7, T9 and T11 levels. There is likely mild cortical breakthrough at several levels resulting in mild central canal narrowing. No gross evidence of cord compression is seen.. 15. Pain syndrome. Today the most painful zone is in the right hip area. 16. Hyponatremia-corrected; hypokalemia now hyperkalemic 5.2 hold potassium p.o. today and hold Aldactone today.Recheck and sodium chloride daily with the dose to 4 mg today 17. Leucopenia-improved. 18. Neutropenia with occasional fever and chills. Last chemotherapy 5 days ago. 19. Hypoalbuminemia. 20.Right sided cp after catheter insertion and correction less discomfort. 21. Decreased edema both lower extremities with [id number] with Pleural and Pericardial effusion. 22. pain syndrome 23.bilateral pleural effusions ; s/p left thoracentesis, During the procedure the probe of the u/s was placed to the right side of the chest which showed only minimal amount of liquid on the right pleural cavity. 24. Systolic over diastolic congestive heart failure with a right more than left lower extremity swelling with no DVT in latest venous Doppler. 25. Swelling of the left forearm-persist. Cellulitis of the left forearm with increased edema anteriorly.-Today it is less edematous 26. Pathologic fracture of the right hip;s/p hemiarthroplasty of right hip . Result Diagram: 10/10/1842810/10/18428 Subjective 24 Hr Interval Summary Free Text/Dictation Tolerable pain. Occasional nausea no vomiting. Is attempted to get up from the bed alone she is successful. Goes to toilet alone. Explained the patient the high risk of possible fall. Encouraged her to continue to be active but called the nurse or SNA to help to prevent a fall. Constitutional: improved; No no complaints, No chills, No diaphoresis, No disoriented, No febrile, No poor po, No requiring IVF, No requiring O2, No other Eyes: no complaints; No pain, No discharge, No redness, No visual change, No other ENT: no complaints; No bleeding, No pain, No congestion, No discharge, No dysphagia, No sore throat, No other Respiratory: cough, pleuritic pain; No no complaints, No pain, No shortness of breath, No sputum, No wheezing, No other Cardiovascular: chest pain, lightheadedness, orthopenea, palpitations; No no complaints, No edema, No paroxysmal nocturnal dyspnea, No other Gastrointestinal: constipation, decreased appetite, flatus, nausea, passing stool; No no complaints, No pain, No blood, No diarrhea, No vomiting, No other Genitourinary: dysuria; No no complaints, No bleeding, No discharge, No flank pain, No hematuria, No other Exam/Review of Systems Exam Vitals Vital Signs Date Temp Pulse Resp B/P (MAP) Pulse Ox O2 O2 Flow FiO2 Time Delivery Rate 10/11/18 85 98/58 (71) 09:05 10/11/18 97.9 18 98 Room Air 07:44 10/10/18 2.0 08:35 Intake and Output 10/10/18 10/10/18 10/11/18 1515:00 23:00 07:00 IntakeIntake Total 400 ml OutputOutput Total 1 ml BalanceBalance 400 ml -1 ml Constitutional: alert, oriented, distress, frail, other (On and off becomes lethargic patient was under morphine IV.) Psych: anxiety, confusion; No no complaints, No nl mood/affect, No depression, No suicidal, No other Head: normocephalic, atraumatic; No lacerations, No hematomas, No other Eyes: EOMI, nl lids, PERRL; No nl conjunctiva, No nl sclera, No icteric, No fundi, disc, No other ENMT: nl external ears & nose, nl nasal mucosa & septum, mucosa pink and moist; No nl lips & teeth, No intubated, No tympanic membranes, No other Neck: jvd, bruits, thyromegaly; No supple, No non-tender, No masses, No nuchal rigidity, No other Respiratory: clear to auscultation, diminished breath sounds; No normal air movement, No congested cough, No crackles/rales, No intercostal retraction, No labored breathing, No respirations, No tactile fremitus, No wh eezing, No other Cardiovascular: regular rate and rhythm, bruits, jugular venous distention (JVD); No nl pulses, No diastolic murmur, No edema, No gallop, No irregular rhythm, No murmurs/extra sounds, No rub, No systolic murmur, No S3, No S4, No other Gastrointestinal: soft, nl liver, spleen, non-tender, distended; No ascites, No bowel sounds, No firm, No hepatomegaly, No mass, No rebound or guarding, No splenomegaly, No surgical scars, No tender, No other Genitourinary - Female: nl adnexae, nl external genitalia; No CMT, No CVA tenderness, No uterus, No other Musculoskeletal: joint tenderness, muscle tone, muscle weakness, other (Wound of the right hip area healing nicely no discharge.); No nl extremities to inspection, No nl gait and stance, No range of motion, No spine non-tender, No swelling Extremities: No normal pulses, No calf tenderness, No cyanosis, No clubbing, No edema, No pitting pedal edema, No palpable cord, No tenderness, No other 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: TESTER 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 PACKAGES 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, confused, numbness; No nl mental status, No nl speech, No nl strength, No DTR's symmetric, No focal weakness, No lethargic, No reflexes, No unresponsive, No other Skin: nl turgor; No rash or lesions, No diaphoresis, No ecchymosis, No laceration, No puncture, No other Lymph: No nl lymph nodes, No enlarged, No nontender, No other Medications Medication Current Medications Acetaminophen (Tylenol Tab) 500 mg Q6H PRN PO MILD PAIN(1-3)OR ELEVATED TEMP Last administered on 09/20/18 22:55; Admin Dose 500 MG; Start 09/09/18 at 22:30 Carvedilol (Coreg) 3.125 mg BID PO Last administered on 10/10/18 09:19; Admin Dose 3.125 MG; Start 09/09/18 at 22:30 Docusate Sodium (Colace) 200 mg BID PO Last administered on 10/10/18 20:23; Admin Dose 200 MG; Start 09/09/18 at 22:30 Escitalopram Oxalate (Lexapro) 10 mg DAILY PO Last administered on 10/10/18 09:17; Admin Dose 10 MG; Start 09/10/18 at 09:00 Pantoprazole (Protonix Tab) 40 mg AC BREAKFAST PO Last administered on 10/11/18 05:43; Admin Dose 40 MG; Start 09/10/18 at 07:00 Polyethylene Glycol (Miralax) 17 gm BID PO Last administered on 10/10/18 09:16; Admin Dose 17 GM; Start 09/09/18 at 22:30 Spironolactone (Aldactone) 50 mg DAILY PO Last administered on 10/10/18 09:17; Admin Dose 50 MG; Start 09/13/18 at 18:00 Potassium Chloride (Klor-Con 20) 20 meq BID PO Last administered on 10/01/18 20:23; Admin Dose 20 MEQ; Start 09/15/18 at 21:00; Status Hold Albuterol/ Ipratropium (Duoneb) 3 ml Q8H RESP THERAPY PRN HHN SHORTNESS OF BREATH Last administered on 10/09/18 23:15; Admin Dose 3 ML; Start 09/15/18 at 14:30 Oxycodone HCl (Oxycontin) 20 mg Q12 PO Last administered on 10/10/18 20:24; Admin Dose 20 MG; Start 09/15/18 at 21:00 Olopatadine HCl (Patanol 0.1% Oph) 1 drop BID BOTH EYES Last administered on 10/10/18 20:27; Admin Dose 1 DROP; Start 09/16/18 at 21:00 Loratadine (Claritin) 10 mg DAILY PO Last administered on 10/10/18 09:17; Admin Dose 10 MG; Start 09/17/18 at 09:00 Lidocaine (Lidoderm) 2 patch DAILY TD Last administered on 10/10/18 09:20; Admin Dose 2 PATCH; Start 09/26/18 at 17:30 Hydromorphone HCl (Dilaudid) 0.4 mg Q2H PRN IV .PAIN 6-10 Last administered on 10/02/18 09:21; Admin Dose 0.4 MG; Start 10/01/18 at 16:30 Nalbuphine HCl (Nubain) 10 mg Q4H PRN IV .PRURITUS; Start 10/01/18 at 16:30 Naloxone HCl (Narcan) 0.2 mg Q2M PRN IV .RESP RATE; Start 10/01/18 at 16:30 Simethicone (Mylicon) 80 mg TID PRN PO .GAS; Start 10/01/18 at 16:30 IV Flush (NS 3 ml) 3 ml per protocol IV ; Start 10/01/18 at 16:30 Ondansetron HCl 8 mg/Dextrose 54 ml @ 212 mls/hr Q6H PRN IV NAUSEA AND/OR VOMITING Last administered on 10/09/18 14:33; Admin Dose 212 MLS/HR; Start 10/03/18 at 11:30 Morphine Sulfate (morphine) 4 mg Q2 PRN IV SEVERE PAIN LEVEL 7-10 Last administered on 10/11/18 05:43; Admin Dose 4 MG; Start 10/03/18 at 18:30 Furosemide (Lasix) 40 mg BID DIURETICS PO Last administered on 10/10/18at 17:34; Admin Dose 40 MG; Start 10/07/18 at 18:00 Ciprofloxacin HCl (Ciprofloxacin HCl Otic) 2 drop TID RIGHT EAR Last administered on 10/10/18at 20:23; Admin Dose 2 DROP; Start 10/10/18 at 09:00 Indomethacin (Indocin) 50 mg TID PO Last administered on 10/10/18at 20:23; Admin Dose 50 MG; Start 10/10/18 at 10:30 Anastrozole (Arimidex) 1 mg DAILY PO ; Start 10/11/18 at 09:00 RUSS JEROME MD Oct 11, 2018 09:27
[2018-10-11] MEDS: ANASTROZOLE 1 MG TAB PO SCH (09:28)
[2018-10-11] MEDS ORDERED: SOD CHLORIDE 0.9% 300 ML IV ONE (10:30)
--- NOTE | 2018-10-11 15:20 | CONS ---
Assessment/Plan Assessment/Plan Hospital Course (Demo Recall) IMPRESSION: 1. Congestive heart failure exacerbation, diastolic by most recent echo, acute on chronic.-neg trop x 3. Echo this admit EF 60/small pericardial effusion 2. Hypotension, currently bordereline low 3. Anasarca-improved s/p additional albumin doses 4. Metastatic breast carcinoma. 5. Leukopenia. 6. Thrombocytopenia.-ongoing 7. Pericardial effusion-small by echo with no HD consequence at this time 8. Pleural effusions-recurrent. Initial cytology negative. ? PLeurodesis 9. R femoral head pathologic fracture now post-op s/p ORIF 10/02/18. and now with avulsion fracture in new place in same leg 10. [id number] requiring transfusion 11.Tachycardia-S tach by ecg 10/03. Likley driven by pain/discomfort Recc: -On med-surg -Continue Lasix diuresis BID as tolerated given low BP -folllow K closely with aldactone now held -Continue arimidex -coreg currently held due to marginal BP -will give albumin doses x 2 -Pain control Consultation Date/Type/Reason Admit Date/Time Sep 09, 2018 at 14:53 Initial Consult Date 09/09/18 Type of Consult Cardiology Reason for Consultation CHF Requesting Provider: RUSS JEROME MD Date/Time of Note DATE: 10/11/18 TIME: 15:17 Exam/Review of Systems Vital Signs Vitals Vital Signs Date Temp Pulse Resp B/P (MAP) Pulse Ox O2 O2 Flow FiO2 Time Delivery Rate 10/11/18 96 2.0 13:02 10/11/18 82 109/57 12:22 (74) 10/11/18 97.9 18 Room Air 07:44 Intake and Output 10/10/18 10/10/18 10/11/18 1515:00 23:00 07:00 IntakeIntake Total 400 ml OutputOutput Total 1 ml BalanceBalance 400 ml -1 ml Exam Exam Review of Systems: CONSTITUTIONAL: No fevers, chills. PULMONARY: No sob CARDIOVASCULAR: No chest pain/palpitations GASTROINTESTINAL: No nausea/vomiting. GENITOURINARY: No hematuria/dysuria. MUSCULOSKELETAL:pain in leg PSYCHIATRIC: The patient denies depression. NEUROLOGIC: No weakness Constitutional: alert Psych: no complaints Head: normocephalic ENMT: mucosa pink and moist Neck: supple, jvd (9 cm water) Respiratory: diminished breath sounds (at bases/B) Cardiovascular: regular rate and rhythm Gastrointestinal: soft, non-tender Musculoskeletal: muscle tone (normal) Extremities: pitting pedal edema (bilateral) 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: other (No focal deficits) Labs Result Diagram: 10/10/1842810/10/18428 Medications Medications Current Medications Acetaminophen (Tylenol Tab) 500 mg Q6H PRN PO MILD PAIN(1-3)OR ELEVATED TEMP [place] [facility] administered on 09/20/18 22:55; Admin Dose 500 MG; Start 09/09/18 at 22:30 Carvedilol (Coreg) 3.125 mg BID PO Last administered on 10/10/18 09:19; Admin Dose 3.125 MG; Start 09/09/18 at 22:30; Status Hold Docusate Sodium (Colace) 200 mg BID PO Last administered on 10/11/18 09:12; Admin Dose 200 MG; Start 09/09/18 at 22:30 Escitalopram Oxalate (Lexapro) 10 mg DAILY PO Last administered on 10/11/18 09:12; Admin Dose 10 MG; Start 09/10/18 at 09:00 Pantoprazole (Protonix Tab) 40 mg AC BREAKFAST PO Last administered on 10/11/18 05:43; Admin Dose 40 MG; Start 09/10/18 at 07:00 Polyethylene Glycol (Miralax) 17 gm BID PO Last administered on 10/11/18 09:19; Admin Dose 17 GM; Start 09/09/18 at 22:30 Spironolactone (Aldactone) 50 mg DAILY PO Last administered on 10/10/18 09:17; Admin Dose 50 MG; Start 09/13/18 at 18:00; Status Hold Potassium Chloride (Klor-Con 20) 20 meq BID PO Last administered on 10/01/18 20:23; Admin Dose 20 MEQ; Start 09/15/18 at 21:00; Status Hold Albuterol/ Ipratropium (Duoneb) 3 ml Q8H RESP THERAPY PRN HHN SHORTNESS OF BREATH Last administered on 10/09/18 23:15; Admin Dose 3 ML; Start 09/15/18 at 14:30 Oxycodone HCl (Oxycontin) 20 mg Q12 PO Last administered on 10/11/18 09:10; Admin Dose 20 MG; Start 09/15/18 at 21:00 Olopatadine HCl (Patanol 0.1% Oph) 1 drop BID BOTH EYES Last administered on 10/11/18 09:09; Admin Dose 1 DROP; Start 09/16/18 at 21:00 Loratadine (Claritin) 10 mg DAILY PO Last administered on 10/11/18 09:13; Admin Dose 10 MG; Start 09/17/18 at 09:00 Lidocaine (Lidoderm) 2 patch DAILY TD Last administered on 10/11/18 09:19; Admin Dose 2 PATCH; Start 09/26/18 at 17:30 Hydromorphone HCl (Dilaudid) 0.4 mg Q2H PRN IV .PAIN 6-10 Last administered on 10/02/18 09:21; Admin Dose 0.4 MG; Start 10/01/18 at 16:30 Nalbuphine HCl (Nubain) 10 mg Q4H PRN IV .PRURITUS; Start 10/01/18 at 16:30 Naloxone HCl (Narcan) 0.2 mg Q2M PRN IV .RESP RATE; Start 10/01/18 at 16:30 Simethicone (Mylicon) 80 mg TID PRN PO .GAS; Start 10/01/18 at 16:30 IV Flush (NS 3 ml) 3 ml per protocol IV ; Start 10/01/18 at 16:30 Ondansetron HCl 8 mg/Dextrose 54 ml @ 212 mls/hr Q6H PRN IV NAUSEA AND/OR VOMITING Last administered on 10/09/18 14:33; Admin Dose 212 MLS/HR; Start 10/03/18 at 11:30 Morphine Sulfate (morphine) 4 mg Q2 PRN IV SEVERE PAIN LEVEL 7-10 Last administered on 10/11/18 10:57; Admin Dose 4 MG; Start 10/03/18 at 18:30 Furosemide (Lasix) 40 mg BID DIURETICS PO Last administered on 10/10/18 17:34; Admin Dose 40 MG; Start 10/07/18 at 18:00 Ciprofloxacin HCl (Ciprofloxacin HCl Otic) 2 drop TID RIGHT EAR Last administ ered on 10/11/18 09:16; Admin Dose 2 DROP; Start 10/10/18 at 09:00 Indomethacin (Indocin) 50 mg TID PO Last administered on 10/11/18at 09:11; Admin Dose 50 MG; Start 10/10/18 at 10:30 Anastrozole (Arimidex) 1 mg DAILY PO Last administered on 10/11/18at 09:28; Admin Dose 1 MG; Start 10/11/18 at 09:00 KAMILA TERESA Oct 11, 2018 15:20
[2018-10-11] MEDS: ALBUMIN HUMAN 25% 50 ML IV SCH (17:50)
[2018-10-12] MEDS: ALBUMIN HUMAN 25% 50 ML IV SCH ×3 (01:03→10:54)
[2018-10-12 01:10] VITALS: BP 105/82; PULSE 82; RESP 18
[2018-10-12] MEDS: FUROSEMIDE 40 MG TAB PO SCH ×2 (06:37→18:42)
[2018-10-12 08:30] VITALS: BP 95/51; PULSE 89; RESP 18
--- NOTE | 2018-10-12 08:52 | PN ---
Date/Time of Note Date/Time of Note DATE: 10/12/18 TIME: 08:52 Assessment/Plan VTE Prophylaxis Risk score (from Nsg)>0 risk: 3 SCD applied (from Ns): Yes SCD contraindicated: other (she is walking.) Pharmacological prophylaxis: other (no.) Lines/Catheters IV C[facility]ter Type (from [facility]): Central Line Central line still needed: No Urinary Cath still in place: No Assessment/Plan Hospital Course S/p recurrent thoracentesis with re-occultation of fluid. By calculating patient's preoperative risk the patient is in mild to moderate cardiac risk category. Due to of multiple vertebral fractures handling of the patient's body on the operative table must be extremely careful. Extra dose of Lasix will be given now to diurese the patient which looks slightly more congested comparing with the yesterday's white having anasarca. No contraindications to surgery. Result Diagram: 10/10/1842810/10/18428 Subjective 24 Hr Interval Summary Free Text/Dictation Decreased edema of legs. Constitutional: No no complaints, No improved, No chills, No diaphoresis, No disoriented, No febrile, No poor po, No requiring IVF, No requiring O2, No other Eyes: No no complaints, No pain, No discharge, No redness, No visual change, No other ENT: other (right ear areaa pain decreased.); No no complaints, No bleeding, No pain, No congestion, No discharge, No dysphagia, No sore throat Respiratory: No no complaints, No pain, No cough, No pleuritic pain, No shortness of breath, No sputum, No wheezing, No other Cardiovascular: chest pain, edema; No no complaints, No lightheadedness, No orthopenea, No palpitations, No paroxysmal nocturnal dyspnea, No other Gastrointestinal: constipation, decreased appetite, nausea; No no complaints, No pain, No blood, No diarrhea, No flatus, No passing stool, No vomiting, No other Genitourinary: dysuria; No no complaints, No bleeding, No discharge, No flank pain, No hematuria, No other Musculoskeletal: back pain, bone/joint pain; No no complaints, No neck pain, No restricted range of motion, No swelling, No other Skin: erythema; No no complaints, No bruising, No laceration, No pruritis, No rash, No skin lesions, No other Neurologic: No no complaints, No confusion, No dizziness, No focal-weakness, No headache, No syncope, No seizure, No other Exam/Review of Systems Exam Vitals Vital Signs Date Temp Pulse Resp B/P (MAP) Pulse Ox O2 O2 Flow FiO2 Time Delivery Rate 10/12/18 2.0 03:43 10/12/18 97.6 82 18 105/82 99 Nasal 01:10 (90) Cannula Intake and Output 10/11/18 10/11/18 10/12/18 1414:59 22:59 06:59 IntakeIntake Total 300 ml 1050 ml 200 ml OutputOutput Total 250 ml 250 ml BalanceBalance 300 ml 800 ml -50 ml Constitutional: alert, oriented, well developed, distress, frail; No non-verbal, No obese, No other Psych: anxiety; No no complaints, No nl mood/affect, No confusion, No depression, No suicidal, No other Head: normocephalic, atraumatic Eyes: EOMI, PERRL; No nl conjunctiva, No nl lids, No nl sclera, No icteric, No fundi, disc, No other ENMT: nl external ears & nose, nl lips & teeth, nl nasal mucosa & septum; No mucosa pink and moist, No intubated, No tympanic membranes, No other Neck: jvd, bruits; No supple, No non-tender, No masses, No thyromegaly, No nuchal rigidity, No other Respiratory: congested cough, diminished breath sounds; No clear to auscultation, No normal air movement, No crackles/rales, No intercostal retraction, No labored breathing, No respirations, No tactile fremitus, No wheezing, No other Cardiovascular: regular rate and rhythm, edema (right l) Gastrointestinal: soft, bowel sounds; No nl liver, spleen, No non-tender, No ascites, No distended, No firm, No hepatomegaly, No mass, No rebound or guarding, No splenomegaly, No surgical scars, No tender, No other Genitourinary - Female: No nl adnexae, No nl external genitalia, No CMT, No CVA tenderness, No uterus, No other Musculoskeletal: joint tenderness (right hip the main and back.); No nl extremities to inspection, No nl gait and stance, No muscle tone, No muscle weakness, No range of motion, No spine non-tender, No swelling, No other Extremities: normal pulses; No calf tenderness, No cyanosis, No clubbing, No edema, No pitting pedal edema, No palpable cord, No tenderness, No other 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: ELECTRICAL MANAGER 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, nl speech; No nl mental status, No nl strength, No confused, No DTR's symmetric, No focal weakness, No lethargic, No numbness, No reflexes, No unresponsive, No other Skin: nl turgor (anasarca.); No rash or lesions, No diaphoresis, No ecchymosis, No laceration, No puncture, No other Lymph: No nl lymph nodes, No enlarged, No nontender, No other Medications Medication Current Medications Carvedilol (Coreg) 3.125 mg BID PO Last administered on 10/10/18 09:19; Admin Dose 3.125 MG; Start 09/09/18 at 22:30 Escitalopram Oxalate (Lexapro) 10 mg DAILY PO Last administered on 10/11/18 09:12; Admin Dose 10 MG; Start 09/10/18 at 09:00 Spironolactone (Aldactone) 50 mg DAILY PO Last administered on 10/10/18 09:17; Admin Dose 50 MG; Start 09/13/18 at 18:00 Potassium Chloride (Klor-Con 20) 20 meq BID PO Last administered on 10/01/18 20:23; Admin Dose 20 MEQ; Start 09/15/18 at 21:00; Status Hold Albuterol/ Ipratropium (Duoneb) 3 ml Q8H RESP THERAPY PRN HHN SHORTNESS OF B REATH Last administered on 10/09/18 23:15; Admin Dose 3 ML; Start 09/15/18 at 14:30 Oxycodone HCl (Oxycontin) 20 mg Q12 PO Last administered on 10/11/18 20:54; Admin Dose 20 MG; Start 09/15/18 at 21:00 Olopatadine HCl (Patanol 0.1% Oph) 1 drop BID BOTH EYES Last administered on 10/11/18 20:51; Admin Dose 1 DROP; Start 09/16/18 at 21:00 Loratadine (Claritin) 10 mg DAILY PO Last administered on 10/11/18 09:13; Admin Dose 10 MG; Start 09/17/18 at 09:00 Lidocaine (Lidoderm) 2 patch DAILY TD Last administered on 10/11/18 09:19; Admin Dose 2 PATCH; Start 09/26/18 at 17:30 Hydromorphone HCl (Dilaudid) 0.4 mg Q2H PRN IV .PAIN 6-10 Last administered on 10/02/18 09:21; Admin Dose 0.4 MG; Start 10/01/18 at 16:30 Nalbuphine HCl (Nubain) 10 mg Q4H PRN IV .PRURITUS; Start 10/01/18 at 16:30 Naloxone HCl (Narcan) 0.2 mg Q2M PRN IV .RESP RATE; Start 10/01/18 at 16:30 Simethicone (Mylicon) 80 mg TID PRN PO .GAS; Start 10/01/18 at 16:30 IV Flush (NS 3 ml) 3 ml per protocol IV ; Start 10/01/18 at 16:30 Ondansetron HCl 8 mg/Dextrose 54 ml @ 212 mls/hr Q6H PRN IV NAUSEA AND/OR VOMITING Last administered on 10/09/18 14:33; Admin Dose 212 MLS/HR; Start 10/03/18 at 11:30 Morphine Sulfate (morphine) 4 mg Q2 PRN IV SEVERE PAIN LEVEL 7-10 Last administered on 10/11/18 10:57; Admin Dose 4 MG; Start 10/03/18 at 18:30 Furosemide (Lasix) 40 mg BID DIURETICS PO Last administered on 10/12/18 06:37; Admin Dose 40 MG; Start 10/07/18 at 18:00 Ciprofloxacin HCl (Ciprofloxacin HCl Otic) 2 drop TID RIGHT EAR Last administered on 10/11/18 15:24; Admin Dose 2 DROP; Start 10/10/18 at 09:00 Indomethacin (Indocin) 50 mg TID PO Last administered on 10/11/18 20:51; Admin Dose 50 MG; Start 10/10/18 at 10:30 Anastrozole (Arimidex) 1 mg DAILY PO Last administered on 10/11/18 09:28; Admin Dose 1 MG; Start 10/11/18 at 09:00 Albumin Human 50 ml @ 100 mls/hr Q8H IV Last administered on 10/12/18at 01:03; Admin Dose 100 MLS/HR; Start 10/11/18 at 17:00; Stop 10/12/18 at 09:29 RUSS JEROME MD Oct 12, 2018 08:52
[2018-10-12] MEDS: morphine 4 MG/ML VIAL IV PRN ×2 (09:18→15:12)
[2018-10-12] MEDS ORDERED: MAGNESIUM SULFATE 2 GM/50 ML 50 ML IVPB SCH (10:00)
[2018-10-12] MEDS: CIPROFLOXACIN HCL OTIC DROP 0.25 ML RIGHT EAR SCH ×3 (10:24→21:40)
[2018-10-12] MEDS: LORATADINE 10 MG TAB PO SCH (10:24)
[2018-10-12] MEDS: SPIRONOLACTONE 50 MG TAB PO SCH (10:24)
[2018-10-12] MEDS: INDOMETHACIN 50 MG PO SCH ×3 (10:26→21:06)
[2018-10-12] MEDS: oxyCODONE (CR) 10 MG TAB [oxyCONTIN] PO SCH ×3 (10:27→21:04)
[2018-10-12] MEDS: ANASTROZOLE 1 MG TAB PO SCH (10:29)
[2018-10-12] MEDS: LIDOCAINE 5% PATCH TD SCH (10:31)
[2018-10-12] MEDS: OLOPATADINE 0.1% 5 ML OPH BOTH EYES SCH ×2 (10:35→21:09)
--- NOTE | 2018-10-12 11:12 | CONS ---
Consult Date/Type/Reason Admit Date/Time Sep 09, 2018 at 14:53 Initial Consult Date 09/09/18 Requesting Provider: RUSS JEROME MD Date/Time of Note DATE: 10/12/18 TIME: 11:09 Subjective No acute events - feels a little better toady - improved fluid status. ROS: No fever, no chills, no nausea, no vomiting, no diarrhea/constipation No recent weight changes No chest pain, no PND, no orthopnea - improved SOB, + fatigue No dizziness, blurred vision No thirst, no heat or cold intolerance Objective Vitals Vital Signs Date Temp Pulse Resp B/P (MAP) Pulse Ox O2 O2 Flow FiO2 Time Delivery Rate 10/12/18 97.6 89 18 95/51 (66) 93 Nasal 08:30 Cannula 10/12/18 2.0 03:43 Intake and Output 10/11/18 10/11/18 10/12/18 1515:00 23:00 07:00 IntakeIntake Total 300 ml 1050 ml 200 ml OutputOutput Total 250 ml 250 ml BalanceBalance 300 ml 800 ml -50 ml Exam General: WN/WD/NAD, AOx 3 HEENT: Unicetric/atraumatic/EOMI (follow commands) NECK: JVD elevated, no thyromegaly Lymph: no lymphadenopathy HEART: regular with no S3, II/ systolic murmur at apex LUNGS: Coarse sounds ABD: soft, NT, ND, +BS : Intact Neuro: non focal SKIN: chronic changes EXT: Bruising, 2+ edema Results/Medications Result Diagram: 10/10/189 10/10/18428 Home Meds Reported Medications Potassium Chloride* (Potassium Chloride*) 20 Meq Tablet.er, 20 MEQ PO DAILY, TAB.SA 09/09/18 Epoetin Cr (Procrit) 4,000 Unit/1 Ml Vial, 4000 UNIT IJ Q FRI, VIAL 7:00AM-7:00PM,HOLD IF HGB>10 09/09/18 Ondansetron Hcl* (Zofran*) 4 Mg Tab, 4 MG PO Q6H PRN for NAUSEA AND OR VOMITING, TAB 08/22/18 Pantoprazole* (Pantoprazole*) 40 Mg Tablet.dr, 40 MG PO AC BREAKFAST, TAB 08/22/18 Oxycodone Hcl* (Oxycontin*) 20 Mg Tab.er.12h, 20 MG PO Q12, TAB 08/22/18 Amlodipine Besylate* (Norvasc*) 5 Mg Tablet, 5 MG PO BID, TAB HOLD FOR SBP <110. 08/22/18 Polyethylene Glycol* (Miralax*) 17 Gm Powd.pack, 17 GM PO BID, #60 PACKET ON THUR-12:00 TO 4:00PM 08/22/18 Magnesium Hydroxide* (Milk Of Magnesia*) 400 Mg/5 Ml Oral.susp, 30 ML PO DAILY, ML 08/22/18 Escitalopram Oxalate* (Lexapro*) 10 Mg Tablet, 10 MG PO DAILY, #30 TAB 08/22/18 Furosemide* (Furosemide*) 20 Mg Tablet, 20 MG PO DAILY, #60 TAB HOLD FOR SBP <110. 08/22/18 Docusate Sodium* (Colace*) 100 Mg Capsule, 200 MG PO BID, #60 CAP 08/22/18 Carvedilol* (Carvedilol*) 3.125 Mg Tablet, 3.125 MG PO BID, #60 TAB HOLD FOR SBP <110 OR [place] <60. GIVE WITH FOOD. 08/22/18 Lactose-Free Food (Boost High Protein) 237 Ml Liquid, 120 ML PO BID 08/22/18 Benazepril Hcl* (Benazepril Hcl*) 5 Mg Tablet, 5 MG PO BID, #60 TAB HOLD FOR SBP <110. 08/22/18 Anastrozole* (Arimidex*) 1 Mg Tablet, 1 MG PO DAILY, #30 TAB 08/22/18 Acetaminophen* (Acetaminophen*) 500 MG Extra Strength Tablet, 500 MG PO Q6H PRN for PAIN AND OR ELEVATED TEMP, TAB 08/22/18 Medications Current Medications Carvedilol (Coreg) 3.125 mg BID PO Last administered on 10/10/18at 09:19; Admin Dose 3.125 MG; Start 09/09/18 at 22:30 Spironolactone (Aldactone) 50 mg DAILY PO Last administered on 10/12/18at 10:24; Admin Dose 50 MG; Start 09/13/18 at 18:00 Potassium Chloride (Klor-Con 20) 20 meq BID PO Last administered on 10/01/18at 20:23; Admin Dose 20 MEQ; Start 09/15/18 at 21:00; Status Hold Albuterol/ Ipratropium (Duoneb) 3 ml Q8H RESP THERAPY PRN HHN SHORTNESS OF BREATH Last administered on 10/09/18 23:15; Admin Dose 3 ML; Start 09/15/18 at 14:30 Oxycodone HCl (Oxycontin) 20 mg Q12 PO Last administered on 10/11/18 20:54; Admin Dose 20 MG; Start 09/15/18 at 21:00 Olopatadine HCl (Patanol 0.1% Oph) 1 drop BID BOTH EYES Last administered on 10/12/18 10:35; Admin Dose 1 DROP; Start 09/16/18 at 21:00 Loratadine (Claritin) 10 mg DAILY PO Last administered on 10/12/18 10:24; Admin Dose 10 MG; Start 09/17/18 at 09:00 Lidocaine (Lidoderm) 2 patch DAILY TD Last administered on 10/12/18 10:31; Admin Dose 2 PATCH; Start 09/26/18 at 17:30 Hydromorphone HCl (Dilaudid) 0.4 mg Q2H PRN IV .PAIN 6-10 Last administered on 10/02/18 09:21; Admin Dose 0.4 MG; Start 10/01/18 at 16:30 Nalbuphine HCl (Nubain) 10 mg Q4H PRN IV .PRURITUS; Start 10/01/18 at 16:30 Naloxone HCl (Narcan) 0.2 mg Q2M PRN IV .RESP RATE; Start 10/01/18 at 16:30 Simethicone (Mylicon) 80 mg TID PRN PO .GAS; Start 10/01/18 at 16:30 IV Flush (NS 3 ml) 3 ml per protocol IV ; Start 10/01/18 at 16:30 Ondansetron HCl 8 mg/Dextrose 54 ml @ 212 mls/hr Q6H PRN IV NAUSEA AND/OR VOMITING Last administered on 10/09/18 14:33; Admin Dose 212 MLS/HR; Start 10/03/18 at 11:30 Morphine Sulfate (morphine) 4 mg Q2 PRN IV SEVERE PAIN LEVEL 7-10 Last administered on 10/12/18 09:18; Admin Dose 4 MG; Start 10/03/18 at 18:30 Furosemide (Lasix) 40 mg BID DIURETICS PO Last administered on 10/12/18 06:37; Admin Dose 40 MG; Start 10/07/18 at 18:00 Ciprofloxacin HCl (Ciprofloxacin HCl Otic) 2 drop TID RIGHT EAR Last administered on 10/12/18 10:24; Admin Dose 2 DROP; Start 10/10/18 at 09:00 Indomethacin (Indocin) 50 mg TID PO Last administered on 10/12/18 10:26; Admin Dose 50 MG; Start 10/10/18 at 10:30 Anastrozole (Arimidex) 1 mg DAILY PO Last administered on 10/12/18 10:29; Admin Dose 1 MG; Start 10/11/18 at 09:00 Magnesium Sulfate 50 ml @ 25 mls/hr ONCE IVPB Last administered on 10/12/18 10:44; Admin Dose 25 MLS/HR; Start 10/12/18 at 10:00; Stop 10/12/18 at 19:00 Assessment/Plan Hospital Course (Demo Recall) 1. Congestive heart failure exacerbation, diastolic by most recent echo, acute on chronic.-neg trop x 3. Echo this admit EF 60/small pericardia effusion - responding to diuresis, feels better now - now with increased retention - diffclt to diureses with low BP - better now - con't diuresis as tolerated - stable. Co't to remove volume as tolerated. 2. Hypotension, currently borderline-overall improved - stable - will monitor now - ADVISE TELE - improved hypoxia - treated now. In good range now. 3. Anasarca - con't fluid optimization - responded to diuresis Albumin Rx as needed. 4. Metastatic breast carcinoma - overall poor prognosis - oncology team follows. 5. Leukopenia- on meds. 6. Thrombocytopenia - improved - no active bleeding now, H/H stable at10.9. EMILY NELSON MD Oct 12, 2018 11:12
[2018-10-12 15:13] VITALS: BP 90/57; PULSE 97; RESP 18
[2018-10-12 19:40] VITALS: BP 91/51; PULSE 62; RESP 18
[2018-10-12] MEDS: ALBUTEROL/IPRATROPIUM (NEB) 3 ML AMP HHN PRN (21:54)
[2018-10-13 02:50] VITALS: BP 105/60; PULSE 82; RESP 18
[2018-10-13] MEDS: FUROSEMIDE 40 MG TAB PO SCH ×2 (05:38→17:39)
[2018-10-13 07:52] VITALS: BP 103/69; PULSE 85; RESP 18
[2018-10-13] MEDS: oxyCODONE (CR) 10 MG TAB [oxyCONTIN] PO SCH ×2 (08:52→21:06)
[2018-10-13] MEDS: LORATADINE 10 MG TAB PO SCH (08:53)
[2018-10-13] MEDS: INDOMETHACIN 50 MG PO SCH ×3 (08:53→21:06)
[2018-10-13] MEDS: SPIRONOLACTONE 50 MG TAB PO SCH (08:53)
[2018-10-13] MEDS: CIPROFLOXACIN HCL OTIC DROP 0.25 ML RIGHT EAR SCH ×2 (08:53→13:00)
[2018-10-13] MEDS: ANASTROZOLE 1 MG TAB PO SCH (08:54)
[2018-10-13] MEDS: LIDOCAINE 5% PATCH TD SCH (08:55)
[2018-10-13] MEDS: OLOPATADINE 0.1% 5 ML OPH BOTH EYES SCH ×2 (09:07→21:06)
[2018-10-13] MEDS: ALBUTEROL/IPRATROPIUM (NEB) 3 ML AMP HHN PRN ×2 (09:38→21:29)
[2018-10-13] MEDS: morphine 4 MG/ML VIAL IV PRN ×2 (12:48→22:23)
--- NOTE | 2018-10-13 14:42 | CONS ---
Consult Date/Type/Reason Admit Date/Time Sep 09, 2018 at 14:53 Initial Consult Date 09/09/18 Requesting Provider: RUSS JEROME MD Date/Time of Note DATE: 10/13/18 TIME: 14:41 Subjective Pt more SOB again - might be re-accumulating effusion - will check CXR now. ROS: No fever, no chills, no nausea, no vomiting, no diarrhea/constipation - increased SOB Objective Vitals Vital Signs Date Temp Pulse Resp B/P (MAP) Pulse Ox O2 O2 Flow FiO2 Time Delivery Rate 10/13/18 90 22 95 Nasal 4.0 09:38 Cannula 10/13/18 98.1 103/69 07:52 (80) Intake and Output 10/12/18 10/12/18 10/13/18 1414:59 22:59 06:59 IntakeIntake Total 100 ml 960 ml OutputOutput Total 100 ml BalanceBalance 100 ml 960 ml -100 ml Exam General: WN/WD/NAD, AOx 3 HEENT: Unicetric/atraumatic/EOMI (follow commands) NECK: JVD elevated, no thyromegaly Lymph: no lymphadenopathy HEART: regular with no S3, II/ systolic murmur at apex LUNGS: Coarse sounds ABD: soft, NT, ND, +BS : Intact Neuro: non focal SKIN: chronic changes EXT: 1-2+ edema Results/Medications Result Diagram: 10/13/1843110/13/18 043 Results 24 hrs Laboratory Tests Test 10/13/18 04:32 White Blood Count 3.6 #L Red Blood Count 3.08 L Hemoglobin 9.7 L Hematocrit 30.5 L Mean Corpuscular Volume 99.0 Mean Corpuscular Hemoglobin 31.5 Mean Corpuscular Hemoglobin Concent 31.8 L Red Cell Distribution Width 17.4 H Platelet Count 199 Mean Platelet Volume 9.4 Immature Granulocytes % 0.300 Neutrophils % 49.2 Lymphocytes % 29.8 Monocytes % 14.3 H Eosinophils % 5.6 Basophils % 0.8 Nucleated Red Blood Cells % 0.0 Immature Granulocytes # 0.010 Neutrophils # 1.8 Lymphocytes # 1.1 Monocytes # 0.5 Eosinophils # 0.2 Basophils # 0.0 Nucleated Red Blood Cells # 0.0 Sodium Level 137 Potassium Level 4.7 Chloride Level 102 Carbon Dioxide Level 29 Anion Gap 6 Blood Urea Nitrogen 38 H Creatinine 1.08 H Est Glomerular Filtrat Rate mL/min 52 L Glucose Level 110 Calcium Level 8.7 Iron Level 38 Total Iron Binding Capacity 180 L Percent Iron Saturation 21 L Total Bilirubin 0.5 Direct Bilirubin 0.00 Indirect Bilirubin 0.5 Aspartate Amino Transf (AST/SGOT) 25 Alanine Aminotransferase (ALT/SGPT) 23 Alkaline Phosphatase 60 Total Protein 4.9 L Albumin 2.7 L Globulin 2.20 Albumin/Globulin Ratio 1.22 Home Meds Reported Medications Potassium Chloride* (Potassium Chloride*) 20 Meq Tablet.er, 20 MEQ PO DAILY, TAB.SA 09/09/18 Epoetin Cr (Procrit) 4,000 Unit/1 Ml Vial, 4000 UNIT IJ Q FRI, VIAL 7:00AM-7:00PM,HOLD IF HGB>10 09/09/18 Ondansetron Hcl* (Zofran*) 4 Mg Tab, 4 MG PO Q6H PRN for NAUSEA AND OR VOMITING, TAB 08/22/18 Pantoprazole* (Pantoprazole*) 40 Mg Tablet.dr, 40 MG PO AC BREAKFAST, TAB 08/22/18 Oxycodone Hcl* (Oxycontin*) 20 Mg Tab.er.12h, 20 MG PO Q12, TAB 08/22/18 Amlodipine Besylate* (Norvasc*) 5 Mg Tablet, 5 MG PO BID, TAB HOLD FOR SBP <110. 08/22/18 Polyethylene Glycol* (Miralax*) 17 Gm Powd.pack, 17 GM PO BID, #60 PACKET ON -12:00 TO 4:00PM 08/22/18 Magnesium Hydroxide* (Milk Of Magnesia*) 400 Mg/5 Ml Oral.susp, 30 ML PO DAILY, ML 08/22/18 Escitalopram Oxalate* (Lexapro*) 10 Mg Tablet, 10 MG PO DAILY, #30 TAB 08/22/18 Furosemide* (Furosemide*) 20 Mg Tablet, 20 MG PO DAILY, #60 TAB HOLD FOR SBP <110. 08/22/18 Docusate Sodium* (Colace*) 100 Mg Capsule, 200 MG PO BID, #60 CAP 08/22/18 Carvedilol* (Carvedilol*) 3.125 Mg Tablet, 3.125 MG PO BID, #60 TAB HOLD FOR SBP <110 OR [place] <60. GIVE WITH FOOD. 08/22/18 Lactose-Free Food (Boost High Protein) 237 Ml Liquid, 120 ML PO BID 08/22/18 Benazepril Hcl* (Benazepril Hcl*) 5 Mg Tablet, 5 MG PO BID, #60 TAB HOLD FOR SBP <110. 08/22/18 Anastrozole* (Arimidex*) 1 Mg Tablet, 1 MG PO DAILY, #30 TAB 08/22/18 Acetaminophen* (Acetaminophen*) 500 MG Extra Strength Tablet, 500 MG PO Q6H PRN for PAIN AND OR ELEVATED TEMP, TAB 08/22/18 Medications Current Medications Carvedilol (Coreg) 3.125 mg BID PO Last administered on 10/12/18 21:05; Admin Dose 3.125 MG; Start 09/09/18 at 22:30 Spironolactone (Aldactone) 50 mg DAILY PO Last administered on 10/13/18 08:53; Admin Dose 50 MG; Start 09/13/18 at 18:00 Potassium Chloride (Klor-Con 20) 20 meq BID PO Last administered on 10/01/18 20:23; Admin Dose 20 MEQ; Start 09/15/18 at 21:00; Status Hold Albuterol/ Ipratropium (Duoneb) 3 ml Q8H RESP THERAPY PRN HHN SHORTNESS OF BREATH Last administered on 10/13/18 09:38; Admin Dose 3 ML; Start 09/15/18 at 14:30 Oxycodone HCl (Oxycontin) 20 mg Q12 PO Last administered on 10/13/18 08:52; Admin Dose 20 MG; Start 09/15/18 at 21:00 Olopatadine HCl (Patanol 0.1% Oph) 1 drop BID BOTH EYES Last administered on 10/13/18 09:07; Admin Dose 1 DROP; Start 09/16/18 at 21:00 Loratadine (Claritin) 10 mg DAILY PO Last administered on 10/13/18 08:53; Admin Dose 10 MG; Start 09/17/18 at 09:00 Lidocaine (Lidoderm) 2 patch DAILY TD Last administered on 10/13/18 08:55; Admin Dose 2 PATCH; Start 09/26/18 at 17:30 Hydromorphone HCl (Dilaudid) 0.4 mg Q2H PRN IV .PAIN 6-10 Last administered on 10/02/18 09:21; Admin Dose 0.4 MG; Start 10/01/18 at 16:30 Nalbuphine HCl (Nubain) 10 mg Q4H PRN IV .PRURITUS; Start 10/01/18 at 16:30 Naloxone HCl (Narcan) 0.2 mg Q2M PRN IV .RESP RATE; Start 10/01/18 at 16:30 Simethicone (Mylicon) 80 mg TID PRN PO .GAS; Start 10/01/18 at 16:30 IV Flush (NS 3 ml) 3 ml per protocol IV ; Start 10/01/18 at 16:30 Ondansetron HCl 8 mg/Dextrose 54 ml @ 212 mls/hr Q6H PRN IV NAUSEA AND/OR VOMITING Last administered on 10/09/18 14:33; Admin Dose 212 MLS/HR; Start 10/03/18 at 11:30 Morphine Sulfate (morphine) 4 mg Q2 PRN IV SEVERE PAIN LEVEL 7-10 Last administered on 10/13/18 12:48; Admin Dose 4 MG; Start 10/03/18 at 18:30 Furosemide (Lasix) 40 mg BID DIURETICS PO Last administered on 10/13/18 05:38; Admin Dose 40 MG; Start 10/07/18 at 18:00 Ciprofloxacin HCl (Ciprofloxacin HCl Otic) 2 drop TID RIGHT EAR Last admini stered on 10/13/18 08:53; Admin Dose 2 DROP; Start 10/10/18 at 09:00 Indomethacin (Indocin) 50 mg TID PO Last administered on 10/13/18 12:48; Admin Dose 50 MG; Start 10/10/18 at 10:30 Anastrozole (Arimidex) 1 mg DAILY PO Last administered on 10/13/18 08:54; Admin Dose 1 MG; Start 10/11/18 at 09:00 Assessment/Plan Hospital Course (Demo Recall) 1. Congestive heart failure exacerbation, diastolic by most recent echo, acute on chronic.-neg trop x 3. Echo this admit EF 60/small pericardia effusion - responding to diuresis, feels better now - now with increased retention - diffclt to diureses with low BP - better now - con't diuresis as tolerated - stable. Co't to remove volume as tolerated. 2. Hypotension, currently borderline-overall improved - stable - will monitor now - ADVISE TELE - improved hypoxia - treated now. In good range now. 3. Anasarca - con't fluid optimization - responded to diuresis Albumin Rx as needed. 4. Metastatic breast carcinoma - overall poor prognosis - oncology team follows. 5. Leukopenia- on meds. 6. Thrombocytopenia - improved - no active bleeding now, H/H stable at10.9. EMILY NELSON MD Oct 13, 2018 14:42
[2018-10-13 14:44] VITALS: BP 114/58; PULSE 97; RESP 17
[2018-10-13] MEDS: CIPROFLOXACIN 0.3% 2.5 ML OPH RIGHT EAR SCH ×2 (16:15→21:06)
[2018-10-13 19:45] VITALS: BP 101/62; PULSE 91; RESP 18
[2018-10-14] VITALS (7 sets, daily range): BP systolic 90–144; BP diastolic 58–92; PULSE 93–100; RESP 18–20
[2018-10-14] MEDS: morphine 4 MG/ML VIAL IV PRN ×4 (00:42→23:39)
[2018-10-14] MEDS: FUROSEMIDE 40 MG TAB PO SCH ×2 (06:00→11:10)
[2018-10-14] MEDS: CIPROFLOXACIN 0.3% 2.5 ML OPH RIGHT EAR SCH ×3 (08:28→21:31)
[2018-10-14] MEDS: SPIRONOLACTONE 50 MG TAB PO SCH (08:28)
[2018-10-14] MEDS: LORATADINE 10 MG TAB PO SCH (08:28)
[2018-10-14] MEDS: ANASTROZOLE 1 MG TAB PO SCH (08:28)
[2018-10-14] MEDS: oxyCODONE (CR) 10 MG TAB [oxyCONTIN] PO SCH ×2 (08:29→21:30)
[2018-10-14] MEDS: LIDOCAINE 5% PATCH TD SCH (08:29)
--- NOTE | 2018-10-14 09:17 | PN ---
Date/Time of Note Date/Time of Note DATE: 10/14/18 TIME: 09:16 Assessment/Plan VTE Prophylaxis Risk score (from Nsg)>0 risk: 18 SCD applied (from Ns): Yes SCD contraindicated: other (on.) Pharmacological prophylaxis: LMWH Lines/Catheters IV Catheter Type (from [facility]): Peripheral IV (PORT A CATH) Central line still needed: No Urinary Cath still in place: No Reason Cath still needed: urinary retention Assessment/Plan Assessment/Plan Hemiarthroplasty of the right hip 10/01/[address] Shane. S/p recurrent thoracentesis with re-occultation of fluid. 1.2 liter of fluid removal today. Assessment/Plan 1. PRIMARY ADENOCARCINOMA of the left breast. MULTIPLE BONY METS, PULMONARY METS;LIVER METS CHEMO ON HOLD; PT HAS A VERY GOOD RESPONSE TO CHEMO AND AI 2. Severe pain in the interscapular and lumbar sacral area most probably metastatic lesion possible femoral fracture. pathologic fracture of T9 with 60% of loss of height. Neurosurgical f/u. 3. Obesity. 4. Weight loss 60 pounds during the last 2 years by diet 5. PMS. 6. Myopia. 7. Anemia chronic disease with a drop of her hematocrit to 27; Latest results 28. Will recheck tomorrow;Leukopenia.Thrombocytopenia; 8. Anxiety disorder. Claustrophobia. Increase Ativan to 1 mg every 8 as needed at Lexapro 10 mg daily. 9. Posttraumatic stress disorder. 10. Pain in the left forearm with a history of fracture of ulna and radius. 11. Tachycardia 12. Hypoxemia at night marginal improved after 2 L of nasal cannula oxygen. 13. Deconditioning 14. 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 MRI: 09/28/18:diffuse osseous metastatic disease with multiple pathologic compression fractures at least involving the T4, T5, T7, T9 and T11 levels. There is likely mild cortical breakthrough at several levels resulting in mild central canal narrowing. No gross evidence of cord compression is seen.. 15. Pain syndrome. Today the most painful zone is in the right hip area. 16. Hyponatremia-corrected; hypokalemia now hyperkalemic 5.2 hold potassium p.o. today and hold Aldactone today.Recheck and sodium chloride daily with the dose to 4 mg today 17. Leucopenia-improved. 18. Neutropenia with occasional fever and chills. Last chemotherapy 5 days ago. 19. Hypoalbuminemia. 20.Right sided cp after catheter insertion and correction less discomfort. 21. Decreased edema both lower extremities with [id number]-[id number] with Pleural and Pericardial effusion. 22. pain syndrome 23.bilateral pleural effusions ; s/p left thoracentesis, During the procedure the probe of the u/s was placed to the right side of the chest which showed only minimal amount of liquid on the right pleural cavity. 24. Systolic over diastolic congestive heart failure with a right more than left lower extremity swelling with no DVT in latest venous Doppler. 25. Swelling of the left forearm-persist. Cellulitis of the left forearm with increased edema anteriorly.-Today it is less edematous 26. Pathologic fracture of the right hip;s/p hemiarthroplasty of right hip . Result Diagram: 10/13/1843110/13/18431 Subjective 24 Hr Interval Summary Free Text/Dictation Edema of the body. Constitutional: poor po, requiring O2; No no complaints, No improved, No chills, No diaphoresis, No disoriented, No febrile, No requiring IVF, No other Eyes: No no complaints, No pain, No discharge, No redness, No visual change, No other ENT: pain, congestion; No no complaints, No bleeding, No discharge, No dysphagia, No sore throat, No other Respiratory: cough, pleuritic pain, shortness of breath; No no complaints, No pain, No sputum, No wheezing, No other Cardiovascular: edema, lightheadedness, orthopenea, palpitations; No no complaints, No chest pain, No paroxysmal nocturnal dyspnea, No other Gastrointestinal: constipation; No no complaints, No pain, No blood, No decreased appetite, No diarrhea, No flatus, No nausea, No passing stool, No vomiting, No other Genitourinary: dysuria; No no complaints, No bleeding, No discharge, No flank pain, No hematuria, No other Musculoskeletal: back pain, bone/joint pain, neck pain Skin: erythema, laceration, pruritis; No no complaints, No bruising, No rash, No skin lesions, No other Neurologic: dizziness, headache, syncope Endocrine: dry skin; No no complaints, No polyuria, No polydypsia, No temp intolerance, No other Lymphatic: No no complaints, No adenopathy, No tender nodes, No lymphadema, No other Exam/Review of Systems Exam Vitals Vital Signs Date Temp Pulse Resp B/P (MAP) Pulse Ox O2 O2 Flow FiO2 Time Delivery Rate 10/14/18 97.6 94 18 99/61 (74) 91 07:13 10/14/18 Nasal 02:23 Cannula 10/14/18 4.0 01:14 Intake and Output 10/13/18 10/13/18 10/14/18 1414:59 22:59 06:59 IntakeIntake Total 440 ml OutputOutput Total 600 ml 500 ml BalanceBalance -160 ml -500 ml Constitutional: alert, oriented, well developed, distress, frail, obese; No non-verbal, No other Psych: anxiety, depression; No no complaints, No nl mood/affect, No confusion, No suicidal, No other Head: normocephalic, atraumatic, lacerations; No hematomas, No other Eyes: EOMI, nl lids, PERRL; No nl conjunctiva, No nl sclera, No icteric, No fundi, disc, No other ENMT: No nl external ears & nose, No nl lips & teeth, No nl nasal mucosa & septum, No mucosa pink and moist, No intubated, No tympanic membranes, No other Neck: jvd; No supple, No non-tender, No bruits, No masses, No thyromegaly, No nuchal rigidity, No other Respiratory: congested cough, crackles/rales, diminished breath sounds Cardiovascular: nl pulses, bruits, edema, systolic murmur; No regular rate and rhythm, No diastolic murmur, No gallop, No irregular rhythm, No jugular venous distention (JVD), No murmurs/extra sounds, No rub, No S3, No S4, No other Gastrointestinal: nl liver, spleen, bowel sounds; No soft, No non-tender, No ascites, No distended, No firm, No hepatomegaly, No mass, No rebound or guarding, No splenomegaly, No surgical scars, No tender, No other Musculoskeletal: joint tenderness, muscle tone, muscle weakness; No nl extremities to inspection, No nl gait and stance, No range of motion, No spine non-tender, No swelling, No other Extremities: edema; No normal pulses, No calf tenderness, No clubbing, No pitting pedal edema, No palpable cord, No tenderness, No other 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: RENAL TECHNICIAN 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, nl mental status, nl speech; No nl strength, No confused, No DTR's symmetric, No focal weakness, No lethargic, No numbness, No reflexes, No unresponsive, No other Medications Medication Current Medications Carvedilol (Coreg) 3.125 mg BID PO Last administered on 10/12/18 21:05; Admin Dose 3.125 MG; Start 09/09/18 at 22:30 Spironolactone (Aldactone) 50 mg DAILY PO Last administered on 10/14/18 08:28; Admin Dose 50 MG; Start 09/13/18 at 18:00 Potassium Chloride (Klor-Con 20) 20 meq BID PO Last administered on 10/01/18 20:23; Admin Dose 20 MEQ; Start 09/15/18 at 21:00; Status Hold Albuterol/ Ipratropium (Duoneb) 3 ml Q8H RESP THERAPY PRN HHN SHORTNESS OF BREATH Last administered on 10/13/18 21:29; Admin Dose 3 ML; Start 09/15/18 at 14:30 Oxycodone HCl (Oxycontin) 20 mg Q12 PO Last administered on 10/14/18 08:29; Admin Dose 20 MG; Start 09/15/18 at 21:00 Olopatadine HCl (Patanol 0.1% Oph) 1 drop BID BOTH EYES Last administered on 10/13/18 21:06; Admin Dose 1 DROP; Start 09/16/18 at 21:00 Loratadine (Claritin) 10 mg DAILY PO Last administered on 10/14/18 08:28; Admin Dose 10 MG; Start 09/17/18 at 09:00 Lidocaine (Lidoderm) 2 patch DAILY TD Last administered on 10/14/18 08:29; Admin Dose 2 PATCH; Start 09/26/18 at 17:30 Hydromorphone HCl (Dilaudid) 0.4 mg Q2H PRN IV .PAIN 6-10 Last administered on 10/02/18 09:21; Admin Dose 0.4 MG; Start 10/01/18 at 16:30 Nalbuphine HCl (Nubain) 10 mg Q4H PRN IV .PRURITUS; Start 10/01/18 at 16:30 Naloxone HCl (Narcan) 0.2 mg Q2M PRN IV .RESP RATE; Start 10/01/18 at 16:30 Simethicone (Mylicon) 80 mg TID PRN PO .GAS; Start 10/01/18 at 16:30 IV Flush (NS 3 ml) 3 ml per protocol IV ; Start 10/01/18 at 16:30 Ondansetron HCl 8 mg/Dextrose 54 ml @ 212 mls/hr Q6H PRN IV NAUSEA AND/OR VOMITING Last administered on 10/09/18 14:33; Admin Dose 212 MLS/HR; Start 10/03/18 at 11:30 Morphine Sulfate (morphine) 4 mg Q2 PRN IV SEVERE PAIN LEVEL 7-10 Last administered on 10/14/18 08:29; Admin Dose 4 MG; Start 10/03/18 at 18:30 Furosemide (Lasix) 40 mg BID DIURETICS PO Last administered on 10/13/18 17:39; Admin Dose 40 MG; Start 10/07/18 at 18:00 Anastrozole (Arimidex) 1 mg DAILY PO Last administered on 10/14/18 08:28; Admin Dose 1 MG; Start 10/11/18 at 09:00 Ciprofloxacin HCl (Ciloxan 0.3% Oph) 1 drop TID RIGHT EAR Last administered on 10/14/18 08:28; Admin Dose 1 DROP; Start 10/13/18 at 16:15; Stop 10/15/18 at 09:01 RUSS JEROME MD Oct 14, 2018 09:17
[2018-10-14] MEDS ORDERED: LIDOCAINE 1% (MPF) 5 ML VIAL ONE ×2 (09:31→09:42)
[2018-10-14] MEDS: OLOPATADINE 0.1% 5 ML OPH BOTH EYES SCH ×2 (11:11→21:34)
--- NOTE | 2018-10-14 12:32 | CONS ---
Assessment/Plan Assessment/Plan Hospital Course (Demo Recall) IMPRESSION: 1. Congestive heart failure exacerbation, diastolic by most recent echo, acute on chronic.-neg trop x 3. Echo this admit EF 60/small pericardial effusion 2. Hypotension, currently bordereline low 3. Anasarca-improved s/p additional albumin doses 4. Metastatic breast carcinoma. 5. Leukopenia. 6. Thrombocytopenia.-ongoing 7. Pericardial effusion-small by echo with no HD consequence at this time 8. Pleural effusions-recurrent. Initial cytology negative. ? PLeurodesis 9. R femoral head pathologic fracture now post-op s/p ORIF 10/02/18. and now with avulsion fracture in new place in same leg 10. [id number]-kg requiring transfusion 11.Tachycardia-S tach by ecg 10/03. Likley driven by pain/discomfort-overall improved with reasonable HR control Recc: -On med-surg -Continue Lasix diuresis BID as tolerated and will consider changing back to IV and will give additional albumin infusions -folllow K closely with aldactone now held -Continue arimidex -coreg currently held due to marginal BP -Pain control Consultation Date/Type/Reason Admit Date/Time Sep 09, 2018 at 14:53 Initial Consult Date 09/09/18 Type of Consult Cardiology Reason for Consultation CHF Requesting Provider: RUSS JEROME MD Date/Time of Note DATE: 10/14/18 TIME: 12:28 Exam/Review of Systems Vital Signs Vitals Vital Signs Date Temp Pulse Resp B/P (MAP) Pulse Ox O2 O2 Flow FiO2 Time Delivery Rate 10/14/18 100 20 102/70 97 Nasal 4.0 09:25 (81) Cannula 10/14/18 97.6 07:13 Intake and Output 10/13/18 10/13/18 10/14/18 1515:00 23:00 07:00 IntakeIntake Total 440 ml OutputOutput Total 800 ml 300 ml BalanceBalance -360 ml -300 ml Exam Exam Review of Systems: CONSTITUTIONAL: No fevers, chills. PULMONARY: No sob CARDIOVASCULAR: No chest pain/palpitations GASTROINTESTINAL: No nausea/vomiting. GENITOURINARY: No hematuria/dysuria. MUSCULOSKELETAL: No myagias/arthalgias. PSYCHIATRIC: The patient denies depression. NEUROLOGIC: No weakness Constitutional: alert Psych: no complaints Head: normocephalic ENMT: mucosa pink and moist Neck: supple, jvd (9 cm water) Respiratory: diminished breath sounds (at bases/B) Cardiovascular: regular rate and rhythm Gastrointestinal: soft Musculoskeletal: muscle weakness (generalized) Extremities: pitting pedal edema (bilateral) 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: other (No focal deficits) Labs Result Diagram: 10/13/1843110/13/18431 Medications Medications Current Medications Carvedilol (Coreg) 3.125 mg BID PO Last administered on 10/12/18 21:05; Admin Dose 3.125 MG; Start 09/09/18 at 22:30 Spironolactone (Aldactone) 50 mg DAILY PO Last administered on 10/14/18 08:28; Admin Dose 50 MG; Start 09/13/18 at 18:00 Potassium Chloride (Klor-Con 20) 20 meq BID PO Last administered on 10/01/18 20:23; Admin Dose 20 MEQ; Start 09/15/18 at 21:00; Status Hold Albuterol/ Ipratropium (Duoneb) 3 ml Q8H RESP THERAPY PRN HHN SHORTNESS OF BREATH Last administered on 10/13/18 21:29; Admin Dose 3 ML; Start 09/15/18 at 14:30 Oxycodone HCl (Oxycontin) 20 mg Q12 PO Last administered on 10/14/18 08:29; Admin Dose 20 MG; Start 09/15/18 at 21:00 Olopatadine HCl (Patanol 0.1% Oph) 1 drop BID BOTH EYES Last administered on 10/14/18 11:11; Admin Dose 1 DROP; Start 09/16/18 at 21:00 Loratadine (Claritin) 10 mg DAILY PO Last administered on 10/14/18 08:28; Admin Dose 10 MG; Start 09/17/18 at 09:00 Lidocaine (Lidoderm) 2 patch DAILY TD Last administered on 10/14/18 08:29; Admin Dose 2 PATCH; Start 09/26/18 at 17:30 Hydromorphone HCl (Dilaudid) 0.4 mg Q2H PRN IV .PAIN 6-10 Last administered on 10/02/18 09:21; Admin Dose 0.4 MG; Start 10/01/18 at 16:30 Nalbuphine HCl (Nubain) 10 mg Q4H PRN IV .PRURITUS; Start 10/01/18 at 16:30 Naloxone HCl (Narcan) 0.2 mg Q2M PRN IV .RESP RATE; Start 10/01/18 at 16:30 Simethicone (Mylicon) 80 mg TID PRN PO .GAS; Start 10/01/18 at 16:30 IV Flush (NS 3 ml) 3 ml per protocol IV ; Start 10/01/18 at 16:30 Ondansetron HCl 8 mg/Dextrose 54 ml @ 212 mls/hr Q6H PRN IV NAUSEA AND/OR VOMITING Last administered on 10/09/18 14:33; Admin Dose 212 MLS/HR; Start 10/03/18 at 11:30 Morphine Sulfate (morphine) 4 mg Q2 PRN IV SEVERE PAIN LEVEL 7-10 Last administered on 10/14/18 08:29; Admin Dose 4 MG; Start 10/03/18 at 18:30 Furosemide (Lasix) 40 mg BID DIURETICS PO Last administered on 10/14/18 11:10; Admin Dose 40 MG; Start 10/07/18 at 18:00 Anastrozole (Arimidex) 1 mg DAILY PO Last administered on 10/14/18 08:28; Admin Dose 1 MG; Start 10/11/18 at 09:00 Ciprofloxacin HCl (Ciloxan 0.3% Oph) 1 drop TID RIGHT EAR Last administered on 10/14/18 08:28; Admin Dose 1 DROP; Start 10/13/18 at 16:15; Stop 10/15/18 at 09:01 Ferric Sodium Gluconate Complex 125 mg/Sodium Chloride 100 ml @ 100 mls/hr DAILY@1300 IVPB ; Start 10/14/18 at 13:00; Stop 10/16/18 at 13:59 KAMILA TERESA Oct 14, 2018 12:32
[2018-10-14] MEDS: SOD FERRIC GLUC COMPLX 125 MG in SOD CHLORIDE 0.9% 100 ML IVPB SCH (13:24)
[2018-10-14] MEDS: ALBUMIN HUMAN 25% 50 ML IV SCH ×2 (15:27→21:37)
[2018-10-14] MEDS: ALBUTEROL/IPRATROPIUM (NEB) 3 ML AMP HHN PRN (16:17)
[2018-10-14] MEDS: FUROSEMIDE 40 MG INJ IV SCH (19:01)
--- NOTE | 2018-10-14 22:30 | CONS ---
Assessment/Plan Assessment/Plan Hospital Course (Demo Recall) METASTATIC BREAST CANCER WITH PRIMARY ADENOCARCINOMA IN the left breast. MULTIPLE BONY METS, PULMONARY METS, LIVER METS CHEMO ON HOLD PT HAS A VERY GOOD RESPONSE TO CHEMO AND AI CONT AI FOR NOW CT ABD FOR RESTAGING 08.27.18- noted , stable CT CHEST- STABLE/IMPROVING 1. Moderate bilateral pleural effusions with adjacent lung base consolidation/atelectasis. 2. Moderate pericardial effusion. 3. Decreased size of previously prominent mediastinal lymph nodes. Decreased size of sub centimeter axillary lymph nodes. 4. Stable nonspecific pulmonary nodules as described above. 5. Stable soft tissue nodule of the anterior left chest wall/breast. 6. Redemonstrated diffuse sclerotic metastatic osseous lesions with stable compression deformities of the thoracic spine. 7. Nodular contour of the liver with multiple hypoattenuating masses, grossly similar to prior exam. CYTOLOGY-NEG CARD - TO MONITOR FOR PERICARDIAL TAMPONADE, FOR NOW NO NEED TO DO PERICARDIOCENTESIS R HIP PAIN MRI R HIP- nondisplaced pathological fracture of the right femoral head merging with the known metastatic lesion. Interval development of synovitis and a large joint effusion as well as psoas bursitis. CT PELVIS- Subacute to chronic pathologic subcapital fracture of the right femoral neck. ORTHO - post-op s/p ORIF 10/02/18 CONT PAIN CONTROL, PT Leucopenia- post chemo NEUPOGEN- DC monitor closely post Neutropenia with occasional fever and chills. Anemia chronic disease SOB PLEURAL EFFUSIONS post thoracentesis cytology -NEG ON 09.18.18 AND 10.01.18 Fluid overload diuretic cardiology F-UP Congestive heart failure exacerbation, diastolic by most recent echo, acute on chronic.-neg trop x 3. Echo this admit EF 60/small pericardia effusion Hypotension, currently borderline-overall improved Anasarca. Severe pain in the interscapular and lumbar sacral area most probably metastatic lesion possible femoral fracture. pathologic fracture of T9 with 60% of loss of height. Obesity. Weight loss 60 pounds during the last 2 years PMS. Myopia. Anxiety disorder. Claustrophobia. Posttraumatic stress disorder. Pain in the left forearm with a history of fracture of ulna and radius. Tachycardia Hypoxemia at night marginal improved after 2 L of nasal cannula oxygen. Deconditioning Pain syndrome. Today the most painful zone is in the right hip area. X-ray did not show any fractures. Hyponatremia- resolved Hypoalbuminemia Right sided cp after catheter insertion and correction less discomfort. Decreased edema both lower extremities with hypotension-improving Swelling of the left forearm-persist. Consultation Date/Type/Reason Admit Date/Time Sep 09, 2018 at 14:53 Initial Consult Date 09/09/18 Type of Consult [facility] Requesting Provider: RUSS JEROME MD Date/Time of Note DATE: 10/14/18 TIME: 22:30 DOS 10/13/18 VK LE 24 HR Interval Summary Free Text/Dictation ALL NOTED D/W RN Exam/Review of Systems Exam Vitals Vital Signs Date Temp Pulse Resp B/P (MAP) Pulse Ox O2 O2 Flow FiO2 Time Delivery Rate 10/14/18 98.6 98 99/72 (81) 92 20:33 10/14/18 20 Nasal 4.0 16:19 Cannula Intake and Output 10/13/18 10/13/18 10/14/18 1414:59 22:59 06:59 IntakeIntake Total 440 ml OutputOutput Total 600 ml 500 ml BalanceBalance -160 ml -500 ml Exam General: WN/WD/NAD, AOx 3 HEENT: Unicetric/atraumatic/EOMI (follow commands) NECK: JVD elevated, no thyromegaly Lymph: no lymphadenopathy HEART: regular with no S3, II/ systolic murmur at apex LUNGS: Coarse sounds ABD: soft, NT, ND, +BS : Intact Neuro: non focal SKIN: chronic changes EXT: 1-2+ edema Results Result Diagram: 10/13/18 0432 10/13/18 043 Medications Medication Current Medications Carvedilol (Coreg) 3.125 mg BID PO Last administered on 10/12/18at 21:05; Admin Dose 3.125 MG; Start 09/09/18 at 22:30 Spironolactone (Aldactone) 50 mg DAILY PO Last administered on 10/14/18at 08:28; Admin Dose 50 MG; Start 09/13/18 at 18:00 Potassium Chloride (Klor-Con 20) 20 meq BID PO Last administered on 10/01/18at 20:23; Admin Dose 20 MEQ; Start 09/15/18 at 21:00; Status Hold Albuterol/ Ipratropium (Duoneb) 3 ml Q8H RESP THERAPY PRN HHN SHORTNESS OF BREATH Last administered on 10/14/18 16:17; Admin Dose 3 ML; Start 09/15/18 at 14:30 Oxycodone HCl (Oxycontin) 20 mg Q12 PO Last administered on 10/14/18 21:30; Admin Dose 20 MG; Start 09/15/18 at 21:00 Olopatadine HCl (Patanol 0.1% Oph) 1 drop BID BOTH EYES Last administered on 10/14/18 21:34; Admin Dose 1 DROP; Start 09/16/18 at 21:00 Loratadine (Claritin) 10 mg DAILY PO Last administered on 10/14/18 08:28; Admin Dose 10 MG; Start 09/17/18 at 09:00 Lidocaine (Lidoderm) 2 patch DAILY TD Last administered on 10/14/18 08:29; Admin Dose 2 PATCH; Start 09/26/18 at 17:30 Hydromorphone HCl (Dilaudid) 0.4 mg Q2H PRN IV .PAIN 6-10 Last administered on 10/02/18 09:21; Admin Dose 0.4 MG; Start 10/01/18 at 16:30 Nalbuphine HCl (Nubain) 10 mg Q4H PRN IV .PRURITUS; Start 10/01/18 at 16:30 Naloxone HCl (Narcan) 0.2 mg Q2M PRN IV .RESP RATE; Start 10/01/18 at 16:30 Simethicone (Mylicon) 80 mg TID PRN PO .GAS; Start 10/01/18 at 16:30 IV Flush (NS 3 ml) 3 ml per protocol IV ; Start 10/01/18 at 16:30 Ondansetron HCl 8 mg/Dextrose 54 ml @ 212 mls/hr Q6H PRN IV NAUSEA AND/OR VOMITING Last administered on 10/09/18 14:33; Admin Dose 212 MLS/HR; Start 10/03/18 at 11:30 Morphine Sulfate (morphine) 4 mg Q2 PRN IV SEVERE PAIN LEVEL 7-10 Last administered on 10/14/18 14:18; Admin Dose 4 MG; Start 10/03/18 at 18:30 Anastrozole (Arimidex) 1 mg DAILY PO Last administered on 10/14/18 08:28; Admin Dose 1 MG; Start 10/11/18 at 09:00 Ciprofloxacin HCl (Ciloxan 0.3% Oph) 1 drop TID RIGHT EAR Last administered on 10/14/18at 21:31; Admin Dose 1 DROP; Start 10/13/18 at 16:15; Stop 10/15/18 at 09:01 Ferric Sodium Gluconate Complex 125 mg/Sodium Chloride 100 ml @ 100 mls/hr DAILY@1300 IVPB Last administered on 10/14/18at 13:24; Admin Dose 100 MLS/HR; Start 10/14/18 at 13:00; Stop 10/16/18 at 13:59 Furosemide (Lasix) 40 mg BID DIURETICS IV Last administered on 10/14/18at 19:01; Admin Dose 40 MG; Start 10/14/18 at 18:00 DES DUNAWAY MD Oct 14, 2018 22:30
--- NOTE | 2018-10-14 22:31 | CONS ---
Assessment/Plan Assessment/Plan Hospital Course (Demo Recall) METASTATIC BREAST CANCER WITH PRIMARY ADENOCARCINOMA IN the left breast. MULTIPLE BONY METS, PULMONARY METS, LIVER METS CHEMO ON HOLD PT HAS A VERY GOOD RESPONSE TO CHEMO AND AI CONT AI FOR NOW CT ABD FOR RESTAGING 08.27.18- noted , stable CT CHEST- STABLE/IMPROVING 1. Moderate bilateral pleural effusions with adjacent lung base consolidation/atelectasis. 2. Moderate pericardial effusion. 3. Decreased size of previously prominent mediastinal lymph nodes. Decreased size of sub centimeter axillary lymph nodes. 4. Stable nonspecific pulmonary nodules as described above. 5. Stable soft tissue nodule of the anterior left chest wall/breast. 6. Redemonstrated diffuse sclerotic metastatic osseous lesions with stable compression deformities of the thoracic spine. 7. Nodular contour of the liver with multiple hypoattenuating masses, grossly similar to prior exam. CYTOLOGY-NEG CARD - TO MONITOR FOR PERICARDIAL TAMPONADE, FOR NOW NO NEED TO DO PERICARDIOCENTESIS R HIP PAIN MRI R HIP- nondisplaced pathological fracture of the right femoral head merging with the known metastatic lesion. Interval development of synovitis and a large joint effusion as well as psoas bursitis. CT PELVIS- Subacute to chronic pathologic subcapital fracture of the right femoral neck. ORTHO - post-op s/p ORIF 10/02/18 CONT PAIN CONTROL, PT Leucopenia- post chemo NEUPOGEN- DC monitor closely post Neutropenia with occasional fever and chills. Anemia chronic disease SOB PLEURAL EFFUSIONS post thoracentesis cytology -NEG ON 09.18.18 AND 10.01.18 Fluid overload diuretic cardiology F-UP Congestive heart failure exacerbation, diastolic by most recent echo, acute on chronic.-neg trop x 3. Echo this admit EF 60/small pericardia effusion Hypotension, currently borderline-overall improved Anasarca. Severe pain in the interscapular and lumbar sacral area most probably metastatic lesion possible femoral fracture. pathologic fracture of T9 with 60% of loss of height. Obesity. Weight loss 60 pounds during the last 2 years PMS. Myopia. Anxiety disorder. Claustrophobia. Posttraumatic stress disorder. Pain in the left forearm with a history of fracture of ulna and radius. Tachycardia Hypoxemia at night marginal improved after 2 L of nasal cannula oxygen. Deconditioning Pain syndrome. Today the most painful zone is in the right hip area. X-ray did not show any fractures. Hyponatremia- resolved Hypoalbuminemia Right sided cp after catheter insertion and correction less discomfort. Decreased edema both lower extremities with hypotension-improving Swelling of the left forearm-persist. Consultation Date/Type/Reason Admit Date/Time Sep 09, 2018 at 14:53 Initial Consult Date 09/09/18 Type of Consult [facility] Requesting Provider: RUSS JEROME MD Date/Time of Note DATE: 10/14/18 TIME: 22:31 24 HR Interval Summary Free Text/Dictation D/W RN NAD +SOB Exam/Review of Systems Exam Vitals Vital Signs Date Temp Pulse Resp B/P (MAP) Pulse Ox O2 O2 Flow FiO2 Time Delivery Rate 10/14/18 98.6 98 99/72 (81) 92 20:33 10/14/18 20 Nasal 4.0 16:19 Cannula Intake and Output 10/13/18 10/13/18 10/14/18 1515:00 23:00 07:00 IntakeIntake Total 440 ml OutputOutput Total 800 ml 300 ml BalanceBalance -360 ml -300 ml Exam General: WN/WD/NAD, AOx 3 HEENT: Unicetric/atraumatic/EOMI (follow commands) NECK: JVD elevated, no thyromegaly Lymph: no lymphadenopathy HEART: regular with no S3, II/ systolic murmur at apex LUNGS: Coarse sounds ABD: soft, NT, ND, +BS : Intact Neuro: non focal SKIN: chronic changes EXT: 1-2+ edema Results Result Diagram: 10/13/18 0432 10/13/18 0432 Medications Medication Current Medications Carvedilol (Coreg) 3.125 mg BID PO Last administered on 10/12/18at 21:05; Admin Dose 3.125 MG; Start 09/09/18 at 22:30 Spironolactone (Aldactone) 50 mg DAILY PO Last administered on 10/14/18 08:28; Admin Dose 50 MG; Start 09/13/18 at 18:00 Potassium Chloride (Klor-Con 20) 20 meq BID PO Last administered on 10/01/18at 20:23; Admin Dose 20 MEQ; Start 09/15/18 at 21:00; Status Hold Albuterol/ Ipratropium (Duoneb) 3 ml Q8H RESP THERAPY PRN HHN SHORTNESS OF BREATH Last administered on 10/14/18 16:17; Admin Dose 3 ML; Start 09/15/18 at 14:30 Oxycodone HCl (Oxycontin) 20 mg Q12 PO Last administered on 10/14/18 21:30; Admin Dose 20 MG; Start 09/15/18 at 21:00 Olopatadine HCl (Patanol 0.1% Oph) 1 drop BID BOTH EYES Last administered on 10/14/18 21:34; Admin Dose 1 DROP; Start 09/16/18 at 21:00 Loratadine (Claritin) 10 mg DAILY PO Last administered on 10/14/18 08:28; Admin Dose 10 MG; Start 09/17/18 at 09:00 Lidocaine (Lidoderm) 2 patch DAILY TD Last administered on 10/14/18 08:29; Admin Dose 2 PATCH; Start 09/26/18 at 17:30 Hydromorphone HCl (Dilaudid) 0.4 mg Q2H PRN IV .PAIN 6-10 Last administered on 10/02/18 09:21; Admin Dose 0.4 MG; Start 10/01/18 at 16:30 Nalbuphine HCl (Nubain) 10 mg Q4H PRN IV .PRURITUS; Start 10/01/18 at 16:30 Naloxone HCl (Narcan) 0.2 mg Q2M PRN IV .RESP RATE; Start 10/01/18 at 16:30 Simethicone (Mylicon) 80 mg TID PRN PO .GAS; Start 10/01/18 at 16:30 IV Flush (NS 3 ml) 3 ml per protocol IV ; Start 10/01/18 at 16:30 Ondansetron HCl 8 mg/Dextrose 54 ml @ 212 mls/hr Q6H PRN IV NAUSEA AND/OR VOMITING Last administered on 10/09/18 14:33; Admin Dose 212 MLS/HR; Start 10/03/18 at 11:30 Morphine Sulfate (morphine) 4 mg Q2 PRN IV SEVERE PAIN LEVEL 7-10 Last administered on 10/14/18 14:18; Admin Dose 4 MG; Start 10/03/18 at 18:30 Anastrozole (Arimidex) 1 mg DAILY PO Last administered on 10/14/18 08:28; Admin Dose 1 MG; Start 4/26/19 at 09:00 Ciprofloxacin HCl (Ciloxan 0.3% Oph) 1 drop TID RIGHT EAR Last administered on 10/14/18at 21:31; Admin Dose 1 DROP; Start 10/13/18 at 16:15; Stop 10/15/18 at 09:01 Ferric Sodium Gluconate Complex 125 mg/Sodium Chloride 100 ml @ 100 mls/hr DAILY@1300 IVPB Last administered on 10/14/18at 13:24; Admin Dose 100 MLS/HR; Start 10/14/18 at 13:00; Stop 10/16/18 at 13:59 Furosemide (Lasix) 40 mg BID DIURETICS IV Last administered on 10/14/18at 19:01; Admin Dose 40 MG; Start 10/14/18 at 18:00 DES DUNAWAY MD Oct 14, 2018 22:31
[2018-10-15] MEDS: ALBUTEROL/IPRATROPIUM (NEB) 3 ML AMP HHN PRN (00:01)
[2018-10-15 02:00] VITALS: BP 91/58; PULSE 90; RESP 18
[2018-10-15] MEDS: FUROSEMIDE 40 MG INJ IV SCH ×2 (05:11→17:42)
[2018-10-15 05:12] VITALS: BP 93/52; PULSE 88; RESP 20
[2018-10-15 07:38] VITALS: BP 131/72; PULSE 98; RESP 18
[2018-10-15] MEDS: LIDOCAINE 5% PATCH TD SCH (09:00)
[2018-10-15] MEDS: CIPROFLOXACIN 0.3% 2.5 ML OPH RIGHT EAR SCH (09:46)
[2018-10-15] MEDS: SPIRONOLACTONE 50 MG TAB PO SCH (09:47)
[2018-10-15] MEDS: OLOPATADINE 0.1% 5 ML OPH BOTH EYES SCH ×2 (09:47→20:21)
[2018-10-15] MEDS: oxyCODONE (CR) 10 MG TAB [oxyCONTIN] PO SCH ×2 (09:47→20:23)
[2018-10-15] MEDS: LORATADINE 10 MG TAB PO SCH (09:48)
[2018-10-15] MEDS: ANASTROZOLE 1 MG TAB PO SCH (09:50)
[2018-10-15] MEDS: morphine 4 MG/ML VIAL IV PRN ×2 (10:58→21:44)
--- NOTE | 2018-10-15 14:16 | PN ---
Date/Time of Note Date/Time of Note DATE: 10/15/18 TIME: 14:14 Assessment/Plan VTE Prophylaxis Risk score (from Nsg)>0 risk: 15 SCD applied (from Ns): No SCD contraindicated: other (on.) Pharmacological prophylaxis: LMWH Lines/Catheters IV Catheter Type (from Nrsg): Peripheral IV Central line still needed: Yes Urinary Cath still in place: No Reason Cath still needed: urinary retention Assessment/Plan Assessment/Plan 1. PRIMARY ADENOCARCINOMA of the left breast. MULTIPLE BONY METS, PULMONARY METS;LIVER METS CHEMO ON HOLD; PT HAS A VERY GOOD RESPONSE TO CHEMO AND AI 2. Severe pain in the interscapular and lumbar sacral area most probably metastatic lesion possible femoral fracture. pathologic fracture of T9 with 60% of loss of height. Neurosurgical f/u. 3. Obesity. 4. Weight loss 60 pounds during the last 2 years by diet 5. PMS. 6. Myopia. 7. Anemia chronic disease with a drop of her hematocrit to 27; Latest results 28. Will recheck tomorrow;Leukopenia.Thrombocytopenia; 8. Anxiety disorder. Claustrophobia. Increase Ativan to 1 mg every 8 as needed at Lexapro 10 mg daily. 9. Posttraumatic stress disorder. 10. Pain in the left forearm with a history of fracture of ulna and radius. 11. Tachycardia 12. Hypoxemia at night marginal improved after 2 L of nasal cannula oxygen. 13. Deconditioning 14. 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 MRI: 09/28/18:diffuse osseous metastatic disease with multiple pathologic compression fractures at least involving the T4, T5, T7, T9 and T11 levels. There is likely mild cortical breakthrough at several levels resulting in mild central canal narrowing. No gross evidence of cord compression is seen.. 15. Pain syndrome. Today the most painful zone is in the right hip area. 16. Hyponatremia-corrected; hypokalemia now hyperkalemic 5.2 hold potassium p.o. today and hold Aldactone today.Recheck and sodium chloride daily with the dose to 4 mg today 17. Leucopenia-improved. 18. Neutropenia with occasional fever and chills. Last chemotherapy 5 days ago. 19. Hypoalbuminemia. 20.Right sided cp after catheter insertion and correction less discomfort. 21. Decreased edema both lower extremities with [id number] with Pleural and Pericardial effusion. 22. pain syndrome 23.bilateral pleural effusions ; s/p left thoracentesis, During the procedure the probe of the u/s was placed to the right side of the chest which showed only minimal amount of liquid on the right pleural cavity. 24. Systolic over diastolic congestive heart failure with a right more than left lower extremity swelling with no DVT in latest venous Doppler. 25. Swelling of the left forearm-persist. Cellulitis of the left forearm with increased edema anteriorly.-Today it is less edematous 26. Pathologic fracture of the right hip;s/p hemiarthroplasty of right hip . Result Diagram: 10/15/18 0509 10/15/18 0509 Results 24hrs Laboratory Tests Test 10/15/18 05:09 10/15/18 11:30 White Blood Count 4.9 # Red Blood Count 2.95 L Hemoglobin 9.4 L Hematocrit 29.2 L Mean Corpuscular Volume 99.0 Mean Corpuscular Hemoglobin 31.9 Mean Corpuscular Hemoglobin Concent 32.2 Red Cell Distribution Width 17.4 H Platelet Count 202 Mean Platelet Volume 9.1 Immature Granulocytes % 0.200 Neutrophils % 57.2 Lymphocytes % 25.0 Monocytes % 11.7 H Eosinophils % 4.5 Basophils % 1.4 Nucleated Red Blood Cells % 0.0 Immature Granulocytes # 0.010 Neutrophils # 2.8 Lymphocytes # 1.2 Monocytes # 0.6 Eosinophils # 0.2 Basophils # 0.1 Nucleated Red Blood Cells # 0.0 Sodium Level 137 Potassium Level 4.6 Chloride Level 104 Carbon Dioxide Level 26 Anion Gap 7 Blood Urea Nitrogen 49 H Creatinine 1.17 H Est Glomerular Filtrat Rate mL/min 48 L Glucose Level 107 Calcium Level 9.1 Total Bilirubin 0.4 Direct Bilirubin 0.00 Indirect Bilirubin 0.4 Aspartate Amino Transf (AST/SGOT) 26 Alanine Aminotransferase (ALT/SGPT) 20 Alkaline Phosphatase 66 Total Protein 5.1 L Albumin 2.7 L Globulin 2.40 Albumin/Globulin Ratio 1.12 Lab Scanned Report REFERENCE LAB Subjective 24 Hr Interval Summary Free Text/Dictation Less pain in the right hip area. Shortness of breath improved comparing with yesterday. No fever and chills no nausea vomiting. Constitutional: improved; No no complaints, No chills, No diaphoresis, No disoriented, No febrile, No poor po, No requiring IVF, No requiring O2, No other Eyes: No no complaints, No pain, No discharge, No redness, No visual change, No other ENT: pain, congestion; No no complaints, No bleeding, No discharge, No dysphagia, No sore throat, No other Respiratory: cough, pleuritic pain, shortness of breath; No no complaints, No pain, No sputum, No wheezing, No other Cardiovascular: edema; No no complaints, No chest pain, No lightheadedness, No orthopenea, No palpitations, No paroxysmal nocturnal dyspnea, No other Gastrointestinal: constipation, decreased appetite, flatus, nausea; No no complaints, No pain, No blood, No diarrhea, No passing stool, No vomiting, No other Genitourinary: No no complaints, No bleeding, No dysuria, No discharge, No flank pain, No hematuria, No other Musculoskeletal: back pain, bone/joint pain; No no complaints, No neck pain, No restricted range of motion, No swelling, No other Exam/Review of Systems Exam Vitals Vital Signs Date Temp Pulse Resp B/P (MAP) Pulse Ox O2 O2 Flow FiO2 Time Delivery Rate 10/15/18 Nasal 3.0 07:45 Cannula 10/15/18 97.9 98 18 131/72 90 07:38 (91) Intake and Output 10/14/18 10/14/18 10/15/18 1515:00 23:00 07:00 IntakeIntake Total 100 ml 100 ml OutputOutput Total 1200 ml BalanceBalance -1100 ml 100 ml Constitutional: alert, oriented, well developed, distress, frail; No non-verbal, No obese, No other Psych: anxiety; No no complaints, No nl mood/affect, No confusion, No depression, No suicidal, No other Head: atraumatic; No normocephalic, No lacerations, No hematomas, No other Eyes: EOMI, nl lids, PERRL; No nl conjunctiva, No nl sclera, No icteric, No fundi, disc, No other ENMT: No nl external ears & nose, No nl lips & teeth, No nl nasal mucosa & septum, No mucosa pink and moist, No intubated, No tympanic membranes, No other Neck: jvd, bruits, thyromegaly; No supple, No non-tender, No masses, No nuchal rigidity, No other Respiratory: clear to auscultation, normal air movement, crackles/rales, diminished breath sounds; No congested cough, No intercostal retraction, No labored breathing, No respirations, No tactile fremitus, No wheezing, No other Cardiovascular: regular rate and rhythm, edema, systolic murmur; No nl pulses, No bruits, No diastolic murmur, No gallop, No irregular rhythm, No jugular venous distention (JVD), No murmurs/extra sounds, No rub, No S3, No S4, No other Gastrointestinal: soft, nl liver, spleen, distended; No non-tender, No ascites, No bowel sounds, No firm, No hepatomegaly, No mass, No rebound or guarding, No splenomegaly, No surgical scars, No tender, No other Musculoskeletal: joint tenderness, muscle tone, muscle weakness, range of motion; No nl extremities to inspection, No nl gait and stance, No spine non-tender, No swelling, No other Extremities: normal pulses, edema, pitting pedal edema, tenderness; No calf tenderness, No cyanosis, No clubbing, No palpable cord, No other 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: [employer]ULT [employer] 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, confused; No nl mental status, No nl speech, No nl strength, No DTR's symmetric, No focal weakness, No lethargic, No numbness, No reflexes, No unresponsive, No other Skin: nl turgor, ecchymosis; No rash or lesions, No diaphoresis, No laceration, No puncture, No other Lymph: No nl lymph nodes, No enlarged, No nontender, No other Results Results 24hrs Laboratory Tests Test 10/15/18 05:09 10/15/18 11:30 White Blood Count 4.9 # Red Blood Count 2.95 L Hemoglobin 9.4 L Hematocrit 29.2 L Mean Corpuscular Volume 99.0 Mean Corpuscular Hemoglobin 31.9 Mean Corpuscular Hemoglobin Concent 32.2 Red Cell Distribution Width 17.4 H Platelet Count 202 Mean Platelet Volume 9.1 Immature Granulocytes % 0.200 Neutrophils % 57.2 Lymphocytes % 25.0 Monocytes % 11.7 H Eosinophils % 4.5 Basophils % 1.4 Nucleated Red Blood Cells % 0.0 Immature Granulocytes # 0.010 Neutrophils # 2.8 Lymphocytes # 1.2 Monocytes # 0.6 Eosinophils # 0.2 Basophils # 0.1 Nucleated Red Blood Cells # 0.0 Sodium Level 137 Potassium Level 4.6 Chloride Level 104 Carbon Dioxide Level 26 Anion Gap 7 Blood Urea Nitrogen 49 H Creatinine 1.17 H Est Glomerular Filtrat Rate mL/min 48 L Glucose Level 107 Calcium Level 9.1 Total Bilirubin 0.4 Direct Bilirubin 0.00 Indirect Bilirubin 0.4 Aspartate Amino Transf (AST/SGOT) 26 Alanine Aminotransferase (ALT/SGPT) 20 Alkaline Phosphatase 66 Total Protein 5.1 L Albumin 2.7 L Globulin 2.40 Albumin/Globulin Ratio 1.12 Lab Scanned Report REFERENCE LAB Medications Medication Current Medications Carvedilol (Coreg) 3.125 mg BID PO Last administered on 10/15/18 09:48; Admin Dose 3.125 MG; Start 09/09/18 at 22:30 Spironolactone (Aldactone) 50 mg DAILY PO Last administered on 10/15/18 09:47; Admin Dose 50 MG; Start 09/13/18 at 18:00 Potassium Chloride (Klor-Con 20) 20 meq BID PO Last administered on 10/01/18 20:23; Admin Dose 20 MEQ; Start 09/15/18 at 21:00; Status Hold Albuterol/ Ipratropium (Duoneb) 3 ml Q8H RESP THERAPY PRN HHN SHORTNESS OF BREATH Last administered on 10/15/18 00:01; Admin Dose 3 ML; Start 09/15/18 at 14:30 Oxycodone HCl (Oxycontin) 20 mg Q12 PO Last administered on 10/15/18 09:47; Admin Dose 20 MG; Start 09/15/18 at 21:00 Olopatadine HCl (Patanol 0.1% Oph) 1 drop BID BOTH EYES Last administered on 10/15/18 09:47; Admin Dose 1 DROP; Start 09/16/18 at 21:00 Loratadine (Claritin) 10 mg DAILY PO Last administered on 10/15/18 09:48; Admin Dose 10 MG; Start 09/17/18 at 09:00 Lidocaine (Lidoderm) 2 patch DAILY TD Last administered on 10/14/18 08:29; A dmin Dose 2 PATCH; Start 09/26/18 at 17:30 Hydromorphone HCl (Dilaudid) 0.4 mg Q2H PRN IV .PAIN 6-10 Last administered on 10/02/18 09:21; Admin Dose 0.4 MG; Start 10/01/18 at 16:30 Nalbuphine HCl (Nubain) 10 mg Q4H PRN IV .PRURITUS; Start 10/01/18 at 16:30 Naloxone HCl (Narcan) 0.2 mg Q2M PRN IV .RESP RATE; Start 10/01/18 at 16:30 Simethicone (Mylicon) 80 mg TID PRN PO .GAS; Start 10/01/18 at 16:30 IV Flush (NS 3 ml) 3 ml per protocol IV ; Start 10/01/18 at 16:30 Ondansetron HCl 8 mg/Dextrose 54 ml @ 212 mls/hr Q6H PRN IV NAUSEA AND/OR VOMITING Last administered on 10/09/18 14:33; Admin Dose 212 MLS/HR; Start 10/03/18 at 11:30 Morphine Sulfate (morphine) 4 mg Q2 PRN IV SEVERE PAIN LEVEL 7-10 Last administered on 10/15/18 10:58; Admin Dose 4 MG; Start 10/03/18 at 18:30 Anastrozole (Arimidex) 1 mg DAILY PO Last administered on 10/15/18 09:50; Admin Dose 1 MG; Start 10/11/18 at 09:00 Ferric Sodium Gluconate Complex 125 mg/Sodium Chloride 100 ml @ 100 mls/hr DAILY@1300 IVPB Last administered on 10/14/18 13:24; Admin Dose 100 MLS/HR; Start 10/14/18 at 13:00; Stop 10/16/18 at 13:59 Furosemide (Lasix) 40 mg BID DIURETICS IV Last administered on 10/14/18 19:01; Admin Dose 40 MG; Start 10/14/18 at 18:00 RUSS JEROME MD Oct 15, 2018 14:16
[2018-10-15] MEDS: SOD FERRIC GLUC COMPLX 125 MG in SOD CHLORIDE 0.9% 100 ML IVPB SCH (14:36)
[2018-10-15 14:44] VITALS: BP 87/50; PULSE 92; RESP 18
--- NOTE | 2018-10-15 14:53 | CONS ---
Consultation Date/Type/Reason Admit Date/Time Sep 09, 2018 at 14:53 Initial Consult Date 09/09/18 Type of Consult Cardiology Requesting Provider: RUSS JEROME MD Date/Time of Note DATE: 10/15/18 TIME: 14:52 24 HR Interval Summary Free Text/Dictation VS reviewed - pt resting - does not want to be disturbed Exam/Review of Systems Vital Signs Vitals Vital Signs Date Temp Pulse Resp B/P (MAP) Pulse Ox O2 O2 Flow FiO2 Time Delivery Rate 10/15/18 Nasal 3.0 07:45 Cannula 10/15/18 97.9 98 18 131/72 90 07:38 (91) Intake and Output 10/14/18 10/14/18 10/15/18 1414:59 22:59 06:59 IntakeIntake Total 100 ml 100 ml OutputOutput Total 1200 ml BalanceBalance -1100 ml 100 ml Labs Result Diagram: 10/15/18 0509 10/15/18 0509 Results 24hrs Laboratory Tests Test 10/15/18 05:09 10/15/18 11:30 White Blood Count 4.9 # Red Blood Count 2.95 L Hemoglobin 9.4 L Hematocrit 29.2 L Mean Corpuscular Volume 99.0 Mean Corpuscular Hemoglobin 31.9 Mean Corpuscular Hemoglobin Concent 32.2 Red Cell Distribution Width 17.4 H Platelet Count 202 Mean Platelet Volume 9.1 Immature Granulocytes % 0.200 Neutrophils % 57.2 Lymphocytes % 25.0 Monocytes % 11.7 H Eosinophils % 4.5 Basophils % 1.4 Nucleated Red Blood Cells % 0.0 Immature Granulocytes # 0.010 Neutrophils # 2.8 Lymphocytes # 1.2 Monocytes # 0.6 Eosinophils # 0.2 Basophils # 0.1 Nucleated Red Blood Cells # 0.0 Sodium Level 137 Potassium Level 4.6 Chloride Level 104 Carbon Dioxide Level 26 Anion Gap 7 Blood Urea Nitrogen 49 H Creatinine 1.17 H Est Glomerular Filtrat Rate mL/min 48 L Glucose Level 107 Calcium Level 9.1 Total Bilirubin 0.4 Direct Bilirubin 0.00 Indirect Bilirubin 0.4 Aspartate Amino Transf (AST/SGOT) 26 Alanine Aminotransferase (ALT/SGPT) 20 Alkaline Phosphatase 66 Total Protein 5.1 L Albumin 2.7 L Globulin 2.40 Albumin/Globulin Ratio 1.12 Lab Scanned Report REFERENCE LAB Medications Medications Current Medications Carvedilol (Coreg) 3.125 mg BID PO Last administered on 10/15/18 09:48; Admin Dose 3.125 MG; Start 09/09/18 at 22:30 Spironolactone (Aldactone) 50 mg DAILY PO Last administered on 10/15/18 09:47; Admin Dose 50 MG; Start 09/13/18 at 18:00 Potassium Chloride (Klor-Con 20) 20 meq BID PO Last administered on 10/01/18 20:23; Admin Dose 20 MEQ; Start 09/15/18 at 21:00; Status Hold Albuterol/ Ipratropium (Duoneb) 3 ml Q8H RESP THERAPY PRN HHN SHORTNESS OF BREATH Last administered on 10/15/18 00:01; Admin Dose 3 ML; Start 09/15/18 at 14:30 Oxycodone HCl (Oxycontin) 20 mg Q12 PO Last administered on 10/15/18 09:47; Admin Dose 20 MG; Start 09/15/18 at 21:00 Olopatadine HCl (Patanol 0.1% Oph) 1 drop BID BOTH EYES Last administered on 10/15/18 09:47; Admin Dose 1 DROP; Start 09/16/18 at 21:00 Loratadine (Claritin) 10 mg DAILY PO Last administered on 10/15/18 09:48; Admin Dose 10 MG; Start 09/17/18 at 09:00 Lidocaine (Lidoderm) 2 patch DAILY TD Last administered on 10/14/18 08:29; Admin Dose 2 PATCH; Start 09/26/18 at 17:30 Hydromorphone HCl (Dilaudid) 0.4 mg Q2H PRN IV .PAIN 6-10 Last administered on 10/02/18 09:21; Admin Dose 0.4 MG; Start 10/01/18 at 16:30 Nalbuphine HCl (Nubain) 10 mg Q4H PRN IV .PRURITUS; Start 10/01/18 at 16:30 Naloxone HCl (Narcan) 0.2 mg Q2M PRN IV .RESP RATE; Start 10/01/18 at 16:30 Simethicone (Mylicon) 80 mg TID PRN PO .GAS; Start 10/01/18 at 16:30 IV Flush (NS 3 ml) 3 ml per protocol IV ; Start 10/01/18 at 16:30 Ondansetron HCl 8 mg/Dextrose 54 ml @ 212 mls/hr Q6H PRN IV NAUSEA AND/OR VOMITING Last administered on 10/09/18 14:33; Admin Dose 212 MLS/HR; Start 10/03/18 at 11:30 Morphine Sulfate (morphine) 4 mg Q2 PRN IV SEVERE PAIN LEVEL 7-10 Last ad ministered on 10/15/18 10:58; Admin Dose 4 MG; Start 10/03/18 at 18:30 Anastrozole (Arimidex) 1 mg DAILY PO Last administered on 10/15/18 09:50; Admin Dose 1 MG; Start 10/11/18 at 09:00 Ferric Sodium Gluconate Complex 125 mg/Sodium Chloride 100 ml @ 100 mls/hr DAILY@1300 IVPB Last administered on 10/15/18 14:36; Admin Dose 100 MLS/HR; Start 10/14/18 at 13:00; Stop 10/16/18 at 13:59 Furosemide (Lasix) 40 mg BID DIURETICS IV Last administered on 10/14/18 19:01; Admin Dose 40 MG; Start 10/14/18 at 18:00 EMILY NELSON MD Oct 15, 2018 14:53
[2018-10-15] MEDS ORDERED: ALBUTEROL/IPRATROPIUM (NEB) 3 ML AMP HHN PRN (16:00)
[2018-10-15] MEDS: ALBUMIN HUMAN 25% 100 ML IV SCH (17:42)
[2018-10-15 19:36] VITALS: BP 98/50; PULSE 82; RESP 18
--- NOTE | 2018-10-15 22:08 | CONS ---
Assessment/Plan Assessment/Plan Hospital Course (Demo Recall) METASTATIC BREAST CANCER WITH PRIMARY ADENOCARCINOMA IN the left breast. MULTIPLE BONY METS, PULMONARY METS, LIVER METS CHEMO ON HOLD PT HAS A VERY GOOD RESPONSE TO CHEMO AND AI CONT AI FOR NOW CT ABD FOR RESTAGING 08.27.18- noted , stable CT CHEST- STABLE/IMPROVING 1. Moderate bilateral pleural effusions with adjacent lung base consolidation/atelectasis. 2. Moderate pericardial effusion. 3. Decreased size of previously prominent mediastinal lymph nodes. Decreased size of sub centimeter axillary lymph nodes. 4. Stable nonspecific pulmonary nodules as described above. 5. Stable soft tissue nodule of the anterior left chest wall/breast. 6. Redemonstrated diffuse sclerotic metastatic osseous lesions with stable compression deformities of the thoracic spine. 7. Nodular contour of the liver with multiple hypoattenuating masses, grossly similar to prior exam. CYTOLOGY-NEG CARD - TO MONITOR FOR PERICARDIAL TAMPONADE, FOR NOW NO NEED TO DO PERICARDIOCENTESIS R HIP PAIN MRI R HIP- nondisplaced pathological fracture of the right femoral head merging with the known metastatic lesion. Interval development of synovitis and a large joint effusion as well as psoas bursitis. CT PELVIS- Subacute to chronic pathologic subcapital fracture of the right femoral neck. ORTHO - post-op s/p ORIF 10/02/18 CONT PAIN CONTROL, PT Leucopenia- post chemo NEUPOGEN- DC monitor closely post Neutropenia with occasional fever and chills. Anemia chronic disease SOB PLEURAL EFFUSIONS post thoracentesis cytology -NEG ON 09.18.18 AND 10.01.18 Fluid overload diuretic cardiology F-UP Congestive heart failure exacerbation, diastolic by most recent echo, acute on chronic.-neg trop x 3. Echo this admit EF 60/small pericardia effusion Hypotension, currently borderline-overall improved Anasarca. Severe pain in the interscapular and lumbar sacral area most probably metastatic lesion possible femoral fracture. pathologic fracture of T9 with 60% of loss of height. Obesity. Weight loss 60 pounds during the last 2 years PMS. Myopia. Anxiety disorder. Claustrophobia. Posttraumatic stress disorder. Pain in the left forearm with a history of fracture of ulna and radius. Tachycardia Hypoxemia at night marginal improved after 2 L of nasal cannula oxygen. Deconditioning Pain syndrome. Today the most painful zone is in the right hip area. X-ray did not show any fractures. Hyponatremia- resolved Hypoalbuminemia Right sided cp after catheter insertion and correction less discomfort. Decreased edema both lower extremities with hypotension-improving Swelling of the left forearm-persist. Consultation Date/Type/Reason Admit Date/Time Sep 09, 2018 at 14:53 Initial Consult Date 09/09/18 Type of Consult [facility] Requesting Provider: RUSS JEROME MD Date/Time of Note DATE: 10/15/18 TIME: 22:07 24 HR Interval Summary Free Text/Dictation ALL NOTED AMBULATING Exam/Review of Systems Exam Vitals Vital Signs Date Temp Pulse Resp B/P (MAP) Pulse Ox O2 O2 Flow FiO2 Time Delivery Rate 10/15/18 98.4 82 18 98/50 (66) 95 Room Air 19:36 10/15/18 3.0 16:43 Intake and Output 10/14/18 10/14/18 10/15/18 1515:00 23:00 07:00 IntakeIntake Total 100 ml 100 ml OutputOutput Total 1200 ml BalanceBalance -1100 ml 100 ml Exam Review of Systems: CONSTITUTIONAL: No fevers, chills. PULMONARY: No sob CARDIOVASCULAR: No chest pain/palpitations GASTROINTESTINAL: No nausea/vomiting. GENITOURINARY: No hematuria/dysuria. MUSCULOSKELETAL:pain in leg PSYCHIATRIC: The patient denies depression. NEUROLOGIC: No weakness Constitutional: alert Psych: no complaints Head: normocephalic ENMT: mucosa pink and moist Neck: supple, jvd Respiratory: diminished breath sounds (at bases/B) Cardiovascular: regular rate and rhythm Gastrointestinal: soft, non-tender Musculoskeletal: muscle tone (normal) Extremities: pitting pedal edema (bilateral) 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: other (No focal deficits) Results Result Diagram: 10/15/18 0509 10/15/18 0509 Results 24hrs Laboratory Tests Test 10/15/18 05:09 10/15/18 11:30 White Blood Count 4.9 # Red Blood Count 2.95 L Hemoglobin 9.4 L Hematocrit 29.2 L Mean Corpuscular Volume 99.0 Mean Corpuscular Hemoglobin 31.9 Mean Corpuscular Hemoglobin Concent 32.2 Red Cell Distribution Width 17.4 H Platelet Count 202 Mean Platelet Volume 9.1 Immature Granulocytes % 0.200 Neutrophils % 57.2 Lymphocytes % 25.0 Monocytes % 11.7 H Eosinophils % 4.5 Basophils % 1.4 Nucleated Red Blood Cells % 0.0 Immature Granulocytes # 0.010 Neutrophils # 2.8 Lymphocytes # 1.2 Monocytes # 0.6 Eosinophils # 0.2 Basophils # 0.1 Nucleated Red Blood Cells # 0.0 Sodium Level 137 Potassium Level 4.6 Chloride Level 104 Carbon Dioxide Level 26 Anion Gap 7 Blood Urea Nitrogen 49 H Creatinine 1.17 H Est Glomerular Filtrat Rate mL/min 48 L Glucose Level 107 Calcium Level 9.1 Total Bilirubin 0.4 Direct Bilirubin 0.00 Indirect Bilirubin 0.4 Aspartate Amino Transf (AST/SGOT) 26 Alanine Aminotransferase (ALT/SGPT) 20 Alkaline Phosphatase 66 Total Protein 5.1 L Albumin 2.7 L Globulin 2.40 Albumin/Globulin Ratio 1.12 Lab Scanned Report REFERENCE LAB Medications Medication Current Medications Carvedilol (Coreg) 3.125 mg BID PO Last administered on 10/15/18 09:48; Admin Dose 3.125 MG; Start 09/09/18 at 22:30 Spironolactone (Aldactone) 50 mg DAILY PO Last administered on 10/15/18 09:47; Admin Dose 50 MG; Start 09/13/18 at 18:00 Potassium Chloride (Klor-Con 20) 20 meq BID PO Last administered on 10/01/18 20:23; Admin Dose 20 MEQ; Start 09/15/18 at 21:00; Status Hold Oxycodone HCl (Oxycontin) 20 mg Q12 PO Last administered on 10/15/18 20:23; Admin Dose 20 MG; Start 09/15/18 at 21:00 Olopatadine HCl (Patanol 0.1% Oph) 1 drop BID BOTH EYES Last administered on 10/15/18 09:47; Admin Dose 1 DROP; Start 09/16/18 at 21:00 Loratadine (Claritin) 10 mg DAILY PO Last administered on 10/15/18 09:48; Admin Dose 10 MG; Start 09/17/18 at 09:00 Lidocaine (Lidoderm) 2 patch DAILY TD Last administered on 10/14/18 08:29; Admin Dose 2 PATCH; Start 09/26/18 at 17:30 Hydromorphone HCl (Dilaudid) 0.4 mg Q2H PRN IV .PAIN 6-10 Last administered on 10/02/18 09:21; Admin Dose 0.4 MG; Start 10/01/18 at 16:30 Nalbuphine HCl (Nubain) 10 mg Q4H PRN IV .PRURITUS; Start 10/01/18 at 16:30 Naloxone HCl (Narcan) 0.2 mg Q2M PRN IV .RESP RATE; Start 10/01/18 at 16:30 Simethicone (Mylicon) 80 mg TID PRN PO .GAS; Start 10/01/18 at 16:30 IV Flush (NS 3 ml) 3 ml per protocol IV ; Start 10/01/18 at 16:30 Ondansetron HCl 8 mg/Dextrose 54 ml @ 212 mls/hr Q6H PRN IV NAUSEA AND/OR VOMITING Last administered on 10/09/18 14:33; Admin Dose 212 MLS/HR; Start 10/03/18 at 11:30 Morphine Sulfate (morphine) 4 mg Q2 PRN IV SEVERE PAIN LEVEL 7-10 Last administered on 10/15/18 21:44; Admin Dose 4 MG; Start 10/03/18 at 18:30 Anastrozole (Arimidex) 1 mg DAILY PO Last administered on 10/15/18 09:50; Admin Dose 1 MG; Start 10/11/18 at 09:00 Ferric Sodium Gluconate Complex 125 mg/Sodium Chloride 100 ml @ 100 mls/hr DAILY@1300 IVPB Last administered on 10/15/18 14:36; Admin Dose 100 MLS/HR; Start 10/14/18 at 13:00; Stop 10/16/18 at 13:59 Furosemide (Lasix) 40 mg BID DIURETICS IV Last administered on 10/15/18 17:42; Admin Dose 40 MG; Start 10/14/18 at 18:00 Albuterol/ Ipratropium (Duoneb) 3 ml Q8H RESP THERAPY PRN HHN SHORTNESS OF BREATH; Start 10/15/18 at 16:00 Albumin Human 100 ml @ 100 mls/hr Q8H IV Last administered on 10/15/18 17:42; Admin Dose 100 MLS/HR; Start 10/15/18 at 17:00; Stop 10/16/18 at 09:59 DES DUNAWAY MD Oct 15, 2018 22:08
[2018-10-16] MEDS: ALBUMIN HUMAN 25% 100 ML IV SCH ×2 (00:50→09:00)
[2018-10-16 02:09] VITALS: BP 111/63; PULSE 88; RESP 18
[2018-10-16] MEDS: FUROSEMIDE 40 MG INJ IV SCH ×2 (06:24→19:05)
[2018-10-16 07:28] VITALS: BP 108/62; PULSE 85; RESP 18
[2018-10-16] MEDS: LIDOCAINE 5% PATCH TD SCH (09:00)
[2018-10-16] MEDS: SPIRONOLACTONE 50 MG TAB PO SCH (09:01)
[2018-10-16] MEDS: OLOPATADINE 0.1% 5 ML OPH BOTH EYES SCH ×2 (09:01→21:00)
[2018-10-16] MEDS: oxyCODONE (CR) 10 MG TAB [oxyCONTIN] PO SCH ×2 (09:02→21:01)
[2018-10-16] MEDS: LORATADINE 10 MG TAB PO SCH (09:02)
[2018-10-16] MEDS: ANASTROZOLE 1 MG TAB PO SCH (09:03)
[2018-10-16] MEDS ORDERED: METOLAZONE 2.5 MG TAB PO ONE (09:30)
--- NOTE | 2018-10-16 09:42 | PN ---
DATE: 10/16/2018 SUBJECTIVE: I was asked to come by and see the patient again by Dr. Fernández due to persistent felton a. The patient is currently stable. She is complaining about pain in right hip. She denies any hem optysis, hematemesis or hematochezia. OBJECTIVE: VITAL SIGNS: Blood pressure is 108/62, respirations 18, pulse 85, temperature 97.9. HEENT: Head is normocephalic. NECK: Supple. HEART: Regular rate. LUNGS: Show diminished breath sounds at the base. ABDOMEN: Soft, nontender to palpation without rebound or guarding. EXTREMITIES: Negative for clubbing, cyanosis. Positive edema on the bilateral lower extremity. Pos itive edema in left upper extremity. DERMATOLOGIC: No rashes. NEUROLOGIC: No change in exam. MUSCULOSKELETAL: No joint effusion. MEDICATIONS: Reviewed. LABORATORY DATA: Reviewed. ASSESSMENT AND PLAN: 1. Volume overload. Etiology is multifactorial secondary to possible diastolic heart failure, third spacing due to hypoalbuminemia, and lymphedema. The patient has noted evidence of edema, which has been diuretic resistant. This is suggestive of possible lymphedema as a contributing factor. It is very difficult to undergo adequate diuresis. Plan would be to recommend limb elevation of left upper extremity and lower extremity if possible. We would continue patient on Lasix. We will add intermi ttent metolazone to augment diuresis. We will monitor renal function and electrolytes closely. If r enal function should further decline with diuretic therapy, we will consider deescalating. 2. Anemia. Continue to monitor hemoglobin and hematocrit levels. 3. Mineral bone disorder, monitor calcium and phosphorus levels. 4. Nonoliguric acute kidney injury. Etiology is likely secondary to hemodynamics and diuretic thera py. The patient's renal function has been fluctuating. Continue to monitor. Continue current treat ment plans, supportive care, renally dose all medicines. 5. Hypernatremia, resolved. 6. Breast cancer with metastasis. Continue to monitor. 7. History of pleural effusion, status post thoracentesis. 8. Right hip fracture, status post arthroplasty. Continue physical therapy. 9. Chronic pain syndrome, continue current pain regimen. 10. Respiratory failure. Continue current medical management and continue supplemental oxygen. Dictated By: ANDRÉS YO/KEANU Conf#: [id number] DID#: [id number] CC: RUSS JEROME MD;*End*
[2018-10-16] MEDS: SOD FERRIC GLUC COMPLX 125 MG in SOD CHLORIDE 0.9% 100 ML IVPB SCH (13:36)
[2018-10-16 16:47] VITALS: BP 125/66; PULSE 98; RESP 18
--- NOTE | 2018-10-16 16:52 | CONS ---
Assessment/Plan Assessment/Plan Hospital Course (Demo Recall) IMPRESSION: 1. Congestive heart failure exacerbation, diastolic by most recent echo, acute on chronic.-neg trop x 3. Echo this admit EF 60/small pericardial effusion 2. Hypotension, currently bordereline low 3. Anasarca-improved s/p additional albumin doses 4. Metastatic breast carcinoma. 5. Leukopenia. 6. Thrombocytopenia.-ongoing 7. Pericardial effusion-small by echo with no HD consequence at this time 8. Pleural effusions-recurrent. Initial cytology negative. ? PLeurodesis 9. R femoral head pathologic fracture now post-op s/p ORIF 10/02/18. and now with avulsion fracture in new place in same leg 10. [id number] requiring transfusion 11.Tachycardia-S tach by ecg 10/03. Likley driven by pain/discomfort-overall improved with reasonable HR control Recc: -On med-surg -Continue Lasix diuresis BID as tolerated and will consider changing back to IV and will give additional albumin infusions -folllow K closely with aldactone resumed -Continue arimidex -coreg currently held due to marginal BP -Pain control Consultation Date/Type/Reason Admit Date/Time Sep 09, 2018 at 14:53 Initial Consult Date 09/09/18 Type of Consult Cardiology Reason for Consultation CHF Requesting Provider: RUSS JEROME MD Date/Time of Note DATE: 10/16/18 TIME: 16:49 Exam/Review of Systems Vital Signs Vitals Vital Signs Date Temp Pulse Resp B/P (MAP) Pulse Ox O2 O2 Flow FiO2 Time Delivery Rate 10/16/18 97.9 98 18 125/66 96 Room Air 16:47 (85) 10/16/18 2.0 07:35 Intake and Output 10/15/18 10/15/18 10/16/18 1515:00 23:00 07:00 IntakeIntake Total 400 ml 250 ml OutputOutput Total 250 ml 951 ml 200 ml BalanceBalance -250 ml -551 ml 50 ml Exam Exam Review of Systems: CONSTITUTIONAL: No fevers, chills. PULMONARY: No sob CARDIOVASCULAR: No chest pain/palpitations GASTROINTESTINAL: No nausea/vomiting. GENITOURINARY: No hematuria/dysuria. MUSCULOSKELETAL: No myagias/arthalgias. PSYCHIATRIC: The patient denies depression. NEUROLOGIC: No weakness Constitutional: alert Psych: no complaints Head: normocephalic ENMT: mucosa pink and moist Neck: supple, jvd (9 cm water) Respiratory: diminished breath sounds Cardiovascular: regular rate and rhythm Gastrointestinal: soft, non-tender Musculoskeletal: muscle tone (normal) Extremities: pitting pedal edema (bilateral) Labs Result Diagram: 10/16/18 0437 10/16/187 Results 24hrs Laboratory Tests Test 10/15/18 23:20 10/16/18 04:37 10/16/18 08:57 Urine Color STRAW Urine Clarity CLEAR Urine pH 5.0 Urine Specific [place] 1.006 Urine Ketones NEGATIVE Urine Nitrite NEGATIVE Urine Bilirubin NEGATIVE Urine Urobilinogen NEGATIVE Urine Leukocyte Esterase NEGATIVE Urine Hemoglobin NEGATIVE Urine Random Creatinine 24.56 Urine Random Sodium 46 Urine Glucose NEGATIVE Urine Total Protein 11.0 White Blood Count 3.8 #L Red Blood Count 2.75 L Hemoglobin 8.7 L Hematocrit 27.4 L Mean Corpuscular Volume 99.6 Mean Corpuscular Hemoglobin 31.6 Mean Corpuscular Hemoglobin Concent 31.8 L Red Cell Distribution Width 17.4 H Platelet Count 172 Mean Platelet Volume 9.5 Immature Granulocytes % 0.300 Neutrophils % 54.5 Lymphocytes % 25.8 Monocytes % 13.5 H Eosinophils % 4.9 Basophils % 1.0 Nucleated Red Blood Cells % 0.0 Immature Granulocytes # 0.010 Neutrophils # 2.1 Lymphocytes # 1.0 Monocytes # 0.5 Eosinophils # 0.2 Basophils # 0.0 Nucleated Red Blood Cells # 0.0 Sodium Level 138 Potassium Level 4.1 Chloride Level 104 Carbon Dioxide Level 27 Anion Gap 7 Blood Urea Nitrogen 42 H Creatinine 1.00 Est Glomerular Filtrat Rate mL/min 57 L Glucose Level 100 Calcium Level 9.0 Phosphorus Level 5.5 H Magnesium Level 1.9 Bedside Glucose 95 Medications Medications Current Medications Carvedilol (Coreg) 3.125 mg BID PO Last administered on 10/16/18 09:02; Admin Dose 3.125 MG; Start 09/09/18 at 22:30 Spironolactone (Aldactone) 50 mg DAILY PO Last administered on 10/16/18 09:01; Admin Dose 50 MG; Start 09/13/18 at 18:00 Potassium Chloride (Klor-Con 20) 20 meq BID PO Last administered on 10/01/18at 20:23; Admin Dose 20 MEQ; Start 09/15/18 at 21:00; Status Hold Oxycodone HCl (Oxycontin) 20 mg Q12 PO Last administered on 10/16/18 09:02; Admin Dose 20 MG; Start 09/15/18 at 21:00 Olopatadine HCl (Patanol 0.1% Oph) 1 drop BID BOTH EYES Last administered on 10/16/18 09:01; Admin Dose 1 DROP; Start 09/16/18 at 21:00 Loratadine (Claritin) 10 mg DAILY PO Last administered on 10/16/18 09:02; Admin Dose 10 MG; Start 09/17/18 at 09:00 Lidocaine (Lidoderm) 2 patch DAILY TD Last administered on 10/14/18 08:29; Admin Dose 2 PATCH; Start 09/26/18 at 17:30 Hydromorphone HCl (Dilaudid) 0.4 mg Q2H PRN IV .PAIN 6-10 Last administered on 10/02/18 09:21; Admin Dose 0.4 MG; Start 10/01/18 at 16:30 Nalbuphine HCl (Nubain) 10 mg Q4H PRN IV .PRURITUS; Start 10/01/18 at 16:30 Naloxone HCl (Narcan) 0.2 mg Q2M PRN IV .RESP RATE; Start 10/01/18 at 16:30 Simethicone (Mylicon) 80 mg TID PRN PO .GAS; Start 10/01/18 at 16:30 IV Flush (NS 3 ml) 3 ml per protocol IV ; Start 10/01/18 at 16:30 Ondansetron HCl 8 mg/Dextrose 54 ml @ 212 mls/hr Q6H PRN IV NAUSEA AND/OR VOMITING Last administered on 10/09/18 14:33; Admin Dose 212 MLS/HR; Start 10/03/18 at 11:30 Morphine Sulfate (morphine) 4 mg Q2 PRN IV SEVERE PAIN LEVEL 7-10 Last administered on 10/15/18 21:44; Admin Dose 4 MG; Start 10/03/18 at 18:30 Anastrozole (Arimidex) 1 mg DAILY PO Last administered on 10/16/18 09:03; Admin Dose 1 MG; Start 10/11/18 at 09:00 Furosemide (Lasix) 40 mg BID DIURETICS IV Last administered on 10/16/18at 06:24; Admin Dose 40 MG; Start 10/14/18 at 18:00 Albuterol/ Ipratropium (Duoneb) 3 ml Q8H RESP THERAPY PRN HHN SHORTNESS OF BREATH; Start 10/15/18 at 16:00 KAMILA TERESA October 16, 2018 16:52
[2018-10-16] MEDS ORDERED: ALBUMIN HUMAN 25% 50 ML IV ONE (17:00)
[2018-10-16] MEDS: morphine 4 MG/ML VIAL IV PRN (19:05)
[2018-10-16 19:35] VITALS: BP 128/68; PULSE 98; RESP 20
--- NOTE | 2018-10-16 21:42 | PN ---
Date/Time of Note Date/Time of Note DATE: 10/16/18 TIME: 21:39 Assessment/Plan VTE Prophylaxis Risk score (from Nsg)>0 risk: 12 SCD applied (from Ns): No SCD contraindicated: other (on) Pharmacological prophylaxis: LMWH Lines/Catheters IV Catheter Type (from Nrsg): Peripheral IV Central line still needed: No Urinary Cath still in place: No Reason Cath still needed: urinary retention Assessment/Plan Assessment/Plan 1. PRIMARY ADENOCARCINOMA of the left breast. MULTIPLE BONY METS, PULMONARY METS;LIVER METS CHEMO ON HOLD; PT HAS A VERY GOOD RESPONSE TO CHEMO AND AI 2. Severe pain in the interscapular and lumbar sacral area most probably metastatic lesion possible femoral fracture. pathologic fracture of T9 with 60% of loss of height. Neurosurgical f/u. 3. Obesity. 4. Weight loss 60 pounds during the last 2 years by diet 5. PMS. 6. Myopia. 7. Anemia chronic disease with a drop of her hematocrit to 27; Latest results 28. Will recheck tomorrow;Leukopenia.Thrombocytopenia; 8. Anxiety disorder. Claustrophobia. Increase Ativan to 1 mg every 8 as needed at Lexapro 10 mg daily. 9. Posttraumatic stress disorder. 10. Pain in the left forearm with a history of fracture of ulna and radius. 11. Tachycardia 12. Hypoxemia at night marginal improved after 2 L of nasal cannula oxygen. 13. Deconditioning 14. 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 MRI: 09/28/18:diffuse osseous metastatic disease with multiple pathologic compression fractures at least involving the T4, T5, T7, T9 and T11 levels. There is likely mild cortical breakthrough at several levels resulting in mild central canal narrowing. No gross evidence of cord compression is seen.. 15. Pain syndrome. Today the most painful zone is in the right hip area. 16. Hyponatremia-corrected; hypokalemia now hyperkalemic 5.2 hold potassium p.o. today and hold Aldactone today.Recheck and sodium chloride daily with the dose to 4 mg today 17. Leucopenia-improved. 18. Neutropenia with occasional fever and chills. Last chemotherapy 5 days ago. 19. Hypoalbuminemia. 20.Right sided cp after catheter insertion and correction less discomfort. 21. Decreased edema both lower extremities with [id number]-rajaauoka-[id number] with Pleural and Pericardial effusion. 22. pain syndrome 23.bilateral pleural effusions ; s/p left thoracentesis, During the procedure the probe of the u/s was placed to the right side of the chest which showed only minimal amount of liquid on the right pleural cavity. 24. Systolic over diastolic congestive heart failure with a right more than left lower extremity swelling with no DVT in latest venous Doppler. 25. Swelling of the left forearm-persist. Cellulitis of the left forearm with increased edema anteriorly.-Today it is less edematous 26. Pathologic fracture of the right hip;s/p hemiarthroplasty of right hip . Result Diagram: 10/16/18 0437 10/16/18436 Results 24hrs Laboratory Tests Test 10/15/18 23:20 10/16/18 04:37 10/16/18 08:57 Urine Color STRAW Urine Clarity CLEAR Urine pH 5.0 Urine Specific [place] 1.006 Urine Ketones NEGATIVE Urine Nitrite NEGATIVE Urine Bilirubin NEGATIVE Urine Urobilinogen NEGATIVE Urine Leukocyte Esterase NEGATIVE Urine Hemoglobin NEGATIVE Urine Random Creatinine 24.56 Urine Random Sodium 46 Urine Glucose NEGATIVE Urine Total Protein 11.0 White Blood Count 3.8 #L Red Blood Count 2.75 L Hemoglobin 8.7 L Hematocrit 27.4 L Mean Corpuscular Volume 99.6 Mean Corpuscular Hemoglobin 31.6 Mean Corpuscular Hemoglobin Concent 31.8 L Red Cell Distribution Width 17.4 H Platelet Count 172 Mean Platelet Volume 9.5 Immature Granulocytes % 0.300 Neutrophils % 54.5 Lymphocytes % 25.8 Monocytes % 13.5 H Eosinophils % 4.9 Basophils % 1.0 Nucleated Red Blood Cells % 0.0 Immature Granulocytes # 0.010 Neutrophils # 2.1 Lymphocytes # 1.0 Monocytes # 0.5 Eosinophils # 0.2 Basophils # 0.0 Nucleated Red Blood Cells # 0.0 Sodium Level 138 Potassium Level 4.1 Chloride Level 104 Carbon Dioxide Level 27 Anion Gap 7 Blood Urea Nitrogen 42 H Creatinine 1.00 Est Glomerular Filtrat Rate mL/min 57 L Glucose Level 100 Calcium Level 9.0 Phosphorus Level 5.5 H Magnesium Level 1.9 Bedside Glucose 95 Subjective 24 Hr Interval Summary Free Text/Dictation On and off pain in the right hip area. Worse when when I am moving. Shortness of breath improved. Change of color of the left upper extremity distally. The cough is becoming more brownish. Significant decrease of swelling when patient is placing the left upper extremity above the heart level. Constitutional: poor po, requiring O2; No no complaints, No improved, No chills, No diaphoresis, No disoriented, No febrile, No requiring IVF, No other Eyes: No no complaints, No pain, No discharge, No redness, No visual change, No other ENT: No no complaints, No bleeding, No pain, No congestion, No discharge, No dysphagia, No sore throat, No other Respiratory: cough, pleuritic pain, shortness of breath; No no complaints, No pain, No sputum, No wheezing, No other Gastrointestinal: pain, constipation, decreased appetite, flatus, nausea, passing stool; No no complaints, No blood, No diarrhea, No vomiting, No other Genitourinary: dysuria; No no complaints, No bleeding, No discharge, No flank pain, No hematuria, No other Musculoskeletal: back pain, bone/joint pain; No no complaints, No neck pain, No restricted range of motion, No swelling, No other Skin: No no complaints, No bruising, No erythema, No laceration, No pruritis, No rash, No skin lesions, No other Neurologic: dizziness, headache; No no complaints, No confusion, No focal-weakness, No syncope, No seizure, No other Lymphatic: No no complaints, No adenopathy, No tender nodes, No lymphadema, No other Psychological: anxiety, confusion; No no complaints, No nl mood/affect, No depression, No suicidal, No other Immunologic: No no complaints, No immunodeficiency, No pruritis, No rhinitis, No urticaria, No other Exam/Review of Systems Exam Vitals Vital Signs Date Temp Pulse Resp B/P (MAP) Pulse Ox O2 O2 Flow FiO2 Time Delivery Rate 10/16/18 2.0 18:10 10/16/18 97.9 98 18 125/66 96 Room Air 16:47 (85) Intake and Output 10/15/18 10/15/18 10/16/18 1515:00 23:00 07:00 IntakeIntake Total 400 ml 250 ml OutputOutput Total 250 ml 951 ml 200 ml BalanceBalance -250 ml -551 ml 50 ml Constitutional: alert, oriented, well developed, distress, frail Psych: anxiety, depression; No no complaints, No nl mood/affect, No confusion, No suicidal, No other Head: normocephalic, atraumatic; No lacerations, No hematomas, No other Eyes: EOMI, nl lids, PERRL; No nl conjunctiva, No nl sclera, No icteric, No fundi, disc, No other ENMT: nl external ears & nose Neck: jvd, bruits, thyromegaly, nuchal rigidity; No supple, No non-tender, No masses, No other Respiratory: normal air movement, congested cough, diminished breath sounds; No clear to auscultation, No crackles/rales, No intercostal retraction, No labored breathing, No respirations, No tactile fremitus, No wheezing, No other Cardiovascular: bruits, edema (Less prominent than yesterday.), gallop; No regular rate and rhythm, No nl pulses, No diastolic murmur, No irregular rhythm, No jugular venous distention (JVD), No murmurs/extra sounds, No rub, No systolic murmur, No S3, No S4, No other Gastrointestinal: nl liver, spleen, bowel sounds, distended, splenomegaly Genitourinary - Female: CVA tenderness; No nl adnexae, No nl external genitalia, No CMT, No uterus, No other Musculoskeletal: joint tenderness; No nl extremities to inspection, No nl gait and stance, No muscle tone, No muscle weakness, No range of motion, No spine non-tender, No swelling, No other Extremities: normal pulses, pitting pedal edema; No calf tenderness, No cyanosis, No clubbing, No edema, No palpable cord, No tenderness, No other 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: [employer]IST 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, nl mental status, nl speech, nl strength; No confused, No DTR's symmetric, No focal weakness, No lethargic, No numbness, No reflexes, No unresponsive, No other Skin: nl turgor (Anasarca.); No rash or lesions, No diaphoresis, No ecchymosis, No laceration, No puncture, No other Lymph: No nl lymph nodes, No enlarged, No nontender, No other Results Results 24hrs Laboratory Tests Test 10/15/18 23:20 10/16/18 04:37 10/16/18 08:57 Urine Color STRAW Urine Clarity CLEAR Urine pH 5.0 Urine Specific [place] 1.006 Urine Ketones NEGATIVE Urine Nitrite NEGATIVE Urine Bilirubin NEGATIVE Urine Urobilinogen NEGATIVE Urine Leukocyte Esterase NEGATIVE Urine Hemoglobin NEGATIVE Urine Random Creatinine 24.56 Urine Random Sodium 46 Urine Glucose NEGATIVE Urine Total Protein 11.0 White Blood Count 3.8 #L Red Blood Count 2.75 L Hemoglobin 8.7 L Hematocrit 27.4 L Mean Corpuscular Volume 99.6 Mean Corpuscular Hemoglobin 31.6 Mean Corpuscular Hemoglobin Concent 31.8 L Red Cell Distribution Width 17.4 H Platelet Count 172 Mean Platelet Volume 9.5 Immature Granulocytes % 0.300 Neutrophils % 54.5 Lymphocytes % 25.8 Monocytes % 13.5 H Eosinophils % 4.9 Basophils % 1.0 Nucleated Red Blood Cells % 0.0 Immature Granulocytes # 0.010 Neutrophils # 2.1 Lymphocytes # 1.0 Monocytes # 0.5 Eosinophils # 0.2 Basophils # 0.0 Nucleated Red Blood Cells # 0.0 Sodium Level 138 Potassium Level 4.1 Chloride Level 104 Carbon Dioxide Level 27 Anion Gap 7 Blood Urea Nitrogen 42 H Creatinine 1.00 Est Glomerular Filtrat Rate mL/min 57 L Glucose Level 100 Calcium Level 9.0 Phosphorus Level 5.5 H Magnesium Level 1.9 Bedside Glucose 95 Medications Medication Current Medications Carvedilol (Coreg) 3.125 mg BID PO Last administered on 10/16/18 21:00; Admin Dose 3.125 MG; Start 09/09/18 at 22:30 Spironolactone (Aldactone) 50 mg DAILY PO Last administered on 10/16/18 09:01; Admin Dose 50 MG; Start 09/13/18 at 18:00 Potassium Chloride (Klor-Con 20) 20 meq BID PO Last administered on 10/01/18 20:23; Admin Dose 20 MEQ; Start 09/15/18 at 21:00; Status Hold Oxycodone HCl (Oxycontin) 20 mg Q12 PO Last administered on 10/16/18 21:01; Admin Dose 20 MG; Start 09/15/18 at 21:00 Olopatadine HCl (Patanol 0.1% Oph) 1 drop BID BOTH EYES Last administered on 10/16/18 09:01; Admin Dose 1 DROP; Start 09/16/18 at 21:00 Loratadine (Claritin) 10 mg DAILY PO Last administered on 10/16/18 09:02; Admin Dose 10 MG; Start 09/17/18 at 09:00 Lidocaine (Lidoderm) 2 patch DAILY TD Last administered on 10/14/18 08:29; Admin Dose 2 PATCH; Start 09/26/18 at 17:30 Hydromorphone HCl (Dilaudid) 0.4 mg Q2H PRN IV .PAIN 6-10 Last administered on 10/02/18 09:21; Admin Dose 0.4 MG; Start 10/01/18 at 16:30 Nalbuphine HCl (Nubain) 10 mg Q4H PRN IV .PRURITUS; Start 10/01/18 at 16:30 Naloxone HCl (Narcan) 0.2 mg Q2M PRN IV .RESP RATE; Start 10/01/18 at 16:30 Simethicone (Mylicon) 80 mg TID PRN PO .GAS; Start 10/01/18 at 16:30 IV Flush (NS 3 ml) 3 ml per protocol IV ; Start 10/01/18 at 16:30 Ondansetron HCl 8 mg/Dextrose 54 ml @ 212 mls/hr Q6H PRN IV NAUSEA AND/OR VOMITING Last administered on 10/09/18 14:33; Admin Dose 212 MLS/HR; Start 10/03/18 at 11:30 Morphine Sulfate (morphine) 4 mg Q2 PRN IV SEVERE PAIN LEVEL 7-10 Last administered on 10/16/18 19:05; Admin Dose 4 MG; Start 10/03/18 at 18:30 Anastrozole (Arimidex) 1 mg DAILY PO Last administered on 10/16/18 09:03; Admin Dose 1 MG; Start 10/11/18 at 09:00 Furosemide (Lasix) 40 mg BID DIURETICS IV Last administered on 10/16/18 19:05; Admin Dose 40 MG; Start 10/14/18 at 18:00 Albuterol/ Ipratropium (Duoneb) 3 ml Q8H RESP THERAPY PRN HHN SHORTNESS OF BREATH; Start 10/15/18 at 16:00 Miscellaneous Information 1 ea BID XX ; Start 10/16/18 at 22:00 RUSS JEROME MD October 16, 2018 21:42
[2018-10-16] MEDS: (Nursing Note) XX SCH (22:00)
--- NOTE | 2018-10-16 23:47 | CONS ---
Assessment/Plan Assessment/Plan Hospital Course (Demo Recall) METASTATIC BREAST CANCER WITH PRIMARY ADENOCARCINOMA IN the left breast. MULTIPLE BONY METS, PULMONARY METS, LIVER METS CHEMO ON HOLD PT HAS A VERY GOOD RESPONSE TO CHEMO AND AI CONT AI FOR NOW CT ABD FOR RESTAGING 08.27.18- noted , stable CT CHEST- STABLE/IMPROVING 1. Moderate bilateral pleural effusions with adjacent lung base consolidation/atelectasis. 2. Moderate pericardial effusion. 3. Decreased size of previously prominent mediastinal lymph nodes. Decreased size of sub centimeter axillary lymph nodes. 4. Stable nonspecific pulmonary nodules as described above. 5. Stable soft tissue nodule of the anterior left chest wall/breast. 6. Redemonstrated diffuse sclerotic metastatic osseous lesions with stable compression deformities of the thoracic spine. 7. Nodular contour of the liver with multiple hypoattenuating masses, grossly similar to prior exam. CYTOLOGY-NEG CARD - TO MONITOR FOR PERICARDIAL TAMPONADE, FOR NOW NO NEED TO DO PERICARDIOCENTESIS R HIP PAIN MRI R HIP- nondisplaced pathological fracture of the right femoral head merging with the known metastatic lesion. Interval development of synovitis and a large joint effusion as well as psoas bursitis. CT PELVIS- Subacute to chronic pathologic subcapital fracture of the right femoral neck. ORTHO - post-op s/p ORIF 10/02/18 CONT PAIN CONTROL, PT Leucopenia- post chemo NEUPOGEN- DC monitor closely post Neutropenia with occasional fever and chills. Anemia chronic disease SOB PLEURAL EFFUSIONS post thoracentesis cytology -NEG ON 09.18.18 AND 10.01.18 Fluid overload diuretic cardiology F-UP Congestive heart failure exacerbation, diastolic by most recent echo, acute on chronic.-neg trop x 3. Echo this admit EF 60/small pericardia effusion Hypotension, currently borderline-overall improved Anasarca. Severe pain in the interscapular and lumbar sacral area most probably metastatic lesion possible femoral fracture. pathologic fracture of T9 with 60% of loss of height. Obesity. Weight loss 60 pounds during the last 2 years PMS. Myopia. Anxiety disorder. Claustrophobia. Posttraumatic stress disorder. Pain in the left forearm with a history of fracture of ulna and radius. Tachycardia Hypoxemia at night marginal improved after 2 L of nasal cannula oxygen. Deconditioning Pain syndrome. Today the most painful zone is in the right hip area. X-ray did not show any fractures. Hyponatremia- resolved Hypoalbuminemia Right sided cp after catheter insertion and correction less discomfort. Decreased edema both lower extremities with hypotension-improving Swelling of the left forearm-persist. Consultation Date/Type/Reason Admit Date/Time Sep 09, 2018 at 14:53 Initial Consult Date 09/09/18 Type of Consult [facility] Requesting Provider: RUSS JEROME MD Date/Time of Note DATE: 10/16/18 TIME: 23:46 24 HR Interval Summary Free Text/Dictation NAD + EDEMA Exam/Review of Systems Exam Vitals Vital Signs Date Temp Pulse Resp B/P (MAP) Pulse Ox O2 O2 Flow FiO2 Time Delivery Rate 10/16/18 Nasal 3.0 22:04 Cannula 10/16/18 98.1 98 20 128/68 92 19:35 (88) Intake and Output 10/15/18 10/15/18 10/16/18 1515:00 23:00 07:00 IntakeIntake Total 400 ml 250 ml OutputOutput Total 250 ml 951 ml 200 ml BalanceBalance -250 ml -551 ml 50 ml Exam OK TO SNF WILL F-UP VK LE Results Result Diagram: 10/16/18 0437 10/16/18 0437 Results 24hrs Laboratory Tests Test 10/16/18 04:37 10/16/18 08:57 White Blood Count 3.8 #L Red Blood Count 2.75 L Hemoglobin 8.7 L Hematocrit 27.4 L Mean Corpuscular Volume 99.6 Mean Corpuscular Hemoglobin 31.6 Mean Corpuscular Hemoglobin Concent 31.8 L Red Cell Distribution Width 17.4 H Platelet Count 172 Mean Platelet Volume 9.5 Immature Granulocytes % 0.300 Neutrophils % 54.5 Lymphocytes % 25.8 Monocytes % 13.5 H Eosinophils % 4.9 Basophils % 1.0 Nucleated Red Blood Cells % 0.0 Immature Granulocytes # 0.010 Neutrophils # 2.1 Lymphocytes # 1.0 Monocytes # 0.5 Eosinophils # 0.2 Basophils # 0.0 Nucleated Red Blood Cells # 0.0 Sodium Level 138 Potassium Level 4.1 Chloride Level 104 Carbon Dioxide Level 27 Anion Gap 7 Blood Urea Nitrogen 42 H Creatinine 1.00 Est Glomerular Filtrat Rate mL/min 57 L Glucose Level 100 Calcium Level 9.0 Phosphorus Level 5.5 H Magnesium Level 1.9 Bedside Glucose 95 Medications Medication Current Medications Carvedilol (Coreg) 3.125 mg BID PO Last administered on 10/16/18 21:00; Admin Dose 3.125 MG; Start 09/09/18 at 22:30 Spironolactone (Aldactone) 50 mg DAILY PO Last administered on 10/16/18 09:01; Admin Dose 50 MG; Start 09/13/18 at 18:00 Potassium Chloride (Klor-Con 20) 20 meq BID PO Last administered on 10/01/18 20:23; Admin Dose 20 MEQ; Start 09/15/18 at 21:00; Status Hold Oxycodone HCl (Oxycontin) 20 mg Q12 PO Last administered on 10/16/18 21:01; Admin Dose 20 MG; Start 09/15/18 at 21:00 Olopatadine HCl (Patanol 0.1% Oph) 1 drop BID BOTH EYES Last administered on 10/16/18 09:01; Admin Dose 1 DROP; Start 09/16/18 at 21:00 Loratadine (Claritin) 10 mg DAILY PO Last administered on 10/16/18 09:02; Admin Dose 10 MG; Start 09/17/18 at 09:00 Lidocaine (Lidoderm) 2 patch DAILY TD Last administered on 10/14/18 08:29; Admin Dose 2 PATCH; Start 09/26/18 at 17:30 Hydromorphone HCl (Dilaudid) 0.4 mg Q2H PRN IV .PAIN 6-10 Last administered on 10/02/18 09:21; Admin Dose 0.4 MG; Start 10/01/18 at 16:30 Nalbuphine HCl (Nubain) 10 mg Q4H PRN IV .PRURITUS; Start 10/01/18 at 16:30 Naloxone HCl (Narcan) 0.2 mg Q2M PRN IV .RESP RATE; Start 10/01/18 at 16:30 Simethicone (Mylicon) 80 mg TID PRN PO .GAS; Start 10/01/18 at 16:30 IV Flush (NS 3 ml) 3 ml per protocol IV ; Start 10/01/18 at 16:30 Ondansetron HCl 8 mg/Dextrose 54 ml @ 212 mls/hr Q6H PRN IV NAUSEA AND/OR VOMITING Last administered on 10/09/18 14:33; Admin Dose 212 MLS/HR; Start 10/03/18 at 11:30 Morphine Sulfate (morphine) 4 mg Q2 PRN IV SEVERE PAIN LEVEL 7-10 Last administered on 10/16/18at 19:05; Admin Dose 4 MG; Start 10/03/18 at 18:30 Anastrozole (Arimidex) 1 mg DAILY PO Last administered on 10/16/18at 09:03; Admin Dose 1 MG; Start 10/11/18 at 09:00 Furosemide (Lasix) 40 mg BID DIURETICS IV Last administered on 10/16/18at 19:05; Admin Dose 40 MG; Start 10/14/18 at 18:00 Albuterol/ Ipratropium (Duoneb) 3 ml Q8H RESP THERAPY PRN HHN SHORTNESS OF BREATH; Start 10/15/18 at 16:00 Miscellaneous Information 1 ea BID XX ; Start 10/16/18 at 22:00 DES DUNAWAY MD October 16, 2018 23:47
[2018-10-17 02:35] VITALS: BP 106/58; PULSE 91; RESP 20
[2018-10-17] MEDS: FUROSEMIDE 40 MG INJ IV SCH ×2 (05:17→18:00)
[2018-10-17 08:15] VITALS: BP 108/62; PULSE 88; RESP 18
[2018-10-17] MEDS: oxyCODONE (CR) 10 MG TAB [oxyCONTIN] PO SCH ×2 (08:58→22:20)
[2018-10-17] MEDS: LORATADINE 10 MG TAB PO SCH (08:59)
[2018-10-17] MEDS: SPIRONOLACTONE 50 MG TAB PO SCH (08:59)
[2018-10-17] MEDS: LIDOCAINE 5% PATCH TD SCH (09:00)
[2018-10-17] MEDS: (Nursing Note) XX SCH ×2 (09:00→21:00)
[2018-10-17] MEDS: ANASTROZOLE 1 MG TAB PO SCH (09:00)
[2018-10-17] MEDS: OLOPATADINE 0.1% 5 ML OPH BOTH EYES SCH ×2 (09:00→21:00)
--- NOTE | 2018-10-17 09:06 | PN ---
Date/Time of Note Date/Time of Note DATE: 10/17/18 TIME: 09:05 Assessment/Plan VTE Prophylaxis Risk score (from Ns)>0 risk: 12 SCD applied (from Ns): No SCD contraindicated: other (on.) Pharmacological prophylaxis: LMWH Lines/Catheters IV Catheter Type (from [facility]): Peripheral IV (port a cath) Urinary Cath still in place: No Assessment/Plan Result Diagram: 10/17/18 0655 10/17/18 0439 Results 24hrs Laboratory Tests Test 10/17/18 04:39 10/17/18 06:55 Sodium Level 139 Potassium Level 3.7 Chloride Level 103 Carbon Dioxide Level 29 Anion Gap 7 Blood Urea Nitrogen 32 H Creatinine 0.78 Est Glomerular Filtrat Rate mL/min > 60 Glucose Level 97 Calcium Level 9.2 Phosphorus Level 4.7 Magnesium Level 1.8 White Blood Count 4.1 L Red Blood Count 2.92 L Hemoglobin 9.3 L Hematocrit 28.8 L Mean Corpuscular Volume 98.6 Mean Corpuscular Hemoglobin 31.8 Mean Corpuscular Hemoglobin Concent 32.3 Red Cell Distribution Width 17.4 H Platelet Count 194 Mean Platelet Volume 9.7 Immature Granulocytes % 0.000 L Neutrophils % 55.0 Lymphocytes % 25.2 Monocytes % 15.2 H Eosinophils % 3.4 Basophils % 1.2 Nucleated Red Blood Cells % 0.0 Immature Granulocytes # 0.000 Neutrophils # 2.3 Lymphocytes # 1.0 Monocytes # 0.6 Eosinophils # 0.1 Basophils # 0.1 Nucleated Red Blood Cells # 0.0 Subjective 24 Hr Interval Summary Free Text/Dictation weakness. Pain is strong. Decreased edema of legs. Exam/Review of Systems Exam Vitals Vital Signs Date Temp Pulse Resp B/P (MAP) Pulse Ox O2 O2 Flow FiO2 Time Delivery Rate 10/17/18 2.0 08:25 10/17/18 98.3 88 18 108/62 99 Room Air 08:15 (77) Intake and Output 10/16/18 10/16/18 10/17/18 1515:00 23:00 07:00 IntakeIntake Total 950 ml OutputOutput Total 600 ml BalanceBalance 350 ml Results Results 24hrs Laboratory Tests Test 10/17/18 04:39 10/17/18 06:55 Sodium Level 139 Potassium Level 3.7 Chloride Level 103 Carbon Dioxide Level 29 Anion Gap 7 Blood Urea Nitrogen 32 H Creatinine 0.78 Est Glomerular Filtrat Rate mL/min > 60 Glucose Level 97 Calcium Level 9.2 Phosphorus Level 4.7 Magnesium Level 1.8 White Blood Count 4.1 L Red Blood Count 2.92 L Hemoglobin 9.3 L Hematocrit 28.8 L Mean Corpuscular Volume 98.6 Mean Corpuscular Hemoglobin 31.8 Mean Corpuscular Hemoglobin Concent 32.3 Red Cell Distribution Width 17.4 H Platelet Count 194 Mean Platelet Volume 9.7 Immature Granulocytes % 0.000 L Neutrophils % 55.0 Lymphocytes % 25.2 Monocytes % 15.2 H Eosinophils % 3.4 Basophils % 1.2 Nucleated Red Blood Cells % 0.0 Immature Granulocytes # 0.000 Neutrophils # 2.3 Lymphocytes # 1.0 Monocytes # 0.6 Eosinophils # 0.1 Basophils # 0.1 Nucleated Red Blood Cells # 0.0 Medications Medication Current Medications Carvedilol (Coreg) 3.125 mg BID PO Last administered on 10/16/18 21:00; Admin Dose 3.125 MG; Start 09/09/18 at 22:30 Spironolactone (Aldactone) 50 mg DAILY PO Last administered on 10/17/18 08:59; Admin Dose 50 MG; Start 09/13/18 at 18:00 Potassium Chloride (Klor-Con 20) 20 meq BID PO Last administered on 10/01/18 20:23; Admin Dose 20 MEQ; Start 09/15/18 at 21:00; Status Hold Oxycodone HCl (Oxycontin) 20 mg Q12 PO Last administered on 10/17/18 08:58; Admin Dose 20 MG; Start 09/15/18 at 21:00 Olopatadine HCl (Patanol 0.1% Oph) 1 drop BID BOTH EYES Last administered on 09:01; Admin Dose 1 DROP; Start 09/16/18 at 21:00 Loratadine (Claritin) 10 mg DAILY PO Last administered on 10/17/18 08:59; Admin Dose 10 MG; Start 09/17/18 at 09:00 Lidocaine (Lidoderm) 2 patch DAILY TD Last administered on 10/14/18 08:29; Admin Dose 2 PATCH; Start 09/26/18 at 17:30 Hydromorphone HCl (Dilaudid) 0.4 mg Q2H PRN IV .PAIN 6-10 Last administered on 10/02/18 09:21; Admin Dose 0.4 MG; Start 10/01/18 at 16:30 Nalbuphine HCl (Nubain) 10 mg Q4H PRN IV .PRURITUS; Start 10/01/18 at 16:30 Naloxone HCl (Narcan) 0.2 mg Q2M PRN IV .RESP RATE; Start 10/01/18 at 16:30 Simethicone (Mylicon) 80 mg TID PRN PO .GAS; Start 10/01/18 at 16:30 IV Flush (NS 3 ml) 3 ml per protocol IV ; Start 10/01/18 at 16:30 Ondansetron HCl 8 mg/Dextrose 54 ml @ 212 mls/hr Q6H PRN IV NAUSEA AND/OR VOMITING Last administered on 10/09/18 14:33; Admin Dose 212 MLS/HR; Start 10/03/18 at 11:30 Morphine Sulfate (morphine) 4 mg Q2 PRN IV SEVERE PAIN LEVEL 7-10 Last administered on 10/16/18at 19:05; Admin Dose 4 MG; Start 10/03/18 at 18:30 Anastrozole (Arimidex) 1 mg DAILY PO Last administered on 10/17/18 09:00; Admin Dose 1 MG; Start 10/11/18 at 09:00 Furosemide (Lasix) 40 mg BID DIURETICS IV Last administered on 10/17/18 05:17; Admin Dose 40 MG; Start 10/14/18 at 18:00 Albuterol/ Ipratropium (Duoneb) 3 ml Q8H RESP THERAPY PRN HHN SHORTNESS OF BREATH; Start 10/15/18 at 16:00 Miscellaneous Information 1 ea BID XX ; Start 10/16/18 at 22:00 RUSS JEROME MD October 17, 2018 09:06
[2018-10-17] MEDS ORDERED: METOLAZONE 2.5 MG TAB PO ONE (09:30)
[2018-10-17] MEDS: morphine 4 MG/ML VIAL IV PRN ×3 (10:07→22:24)
--- NOTE | 2018-10-17 10:29 | PN ---
DATE: 10/17/2018 SUBJECTIVE: The patient is stable. The patient is noted to be less edematous today. The patient randle d excellent urinary output after being given metolazone. No other acute events noted. No hemoptysis , hematemesis, hematochezia. OBJECTIVE: VITAL SIGNS: Blood pressure is 108/62, respirations 16, pulse 88, temperature 98.3. HEENT: Head is normocephalic. NECK: Supple. HEART: Regular rate. LUNGS: Show diminished breath sounds at the base. ABDOMEN: Soft, nontender to palpation without rebound or guarding. EXTREMITIES: Negative for clubbing, cyanosis. Positive edema bilateral lower extremity, positive up per extremity edema, left upper extremity edema. DERMATOLOGIC: No rashes. MUSCULOSKELETAL: No joint effusion. NEUROLOGIC: No change in exam. MEDICATIONS: The patient's medications have been reviewed. LABORATORY DATA: Has been reviewed. ASSESSMENT AND PLAN: 1. Volume overload. Etiology is multifactorial secondary to diastolic heart failure, third spacing due to hypoalbuminemia and lymphedema. The patient was given metolazone yesterday with excellent res ponse. The patient's edema has mildly improved. Plan is to continue current diuretic regimen. Cont inue Lasix. Continue metolazone. Continue Aldactone. Monitor electrolytes and renal function close ly. 2. Anemia. Monitor hemoglobin and hematocrit levels. 3. Mineral bone disorder. Monitor calcium and phosphorus levels. 4. Nonoliguric acute kidney injury, etiology secondary to hemodynamics. Renal function has improved . Continue to monitor closely on diuretic therapy. 5. Hyponatremia, resolved. Continue to monitor. 6. Breast cancer with metastasis. Continue to monitor. 7. History of pleural effusion, status post thoracentesis. 8. Right hip fracture, status post arthroplasty. 9. Chronic pain syndrome. Continue current pain regimen. 10. Respiratory failure, stable. Continue supplemental oxygen. Dictated By: ANDRÉS TATUM DO NR/NTS Conf#: [id number] DID#: [id number] CC: RUSS JEROME MD;*EndCC*
[2018-10-17 14:50] VITALS: BP 98/57; PULSE 88; RESP 18
[2018-10-17 15:54] VITALS: BP 104/55; PULSE 88
--- NOTE | 2018-10-17 16:02 | PN ---
Date/Time of Note Date/Time of Note DATE: 10/17/18 TIME: 15:56 Assessment/Plan VTE Prophylaxis Risk score (from Ns)>0 risk: 7 SCD applied (from Ns): Yes Pharmacological prophylaxis: LMWH Lines/Catheters IV Catheter Type (from [facility]): port-a-cath Urinary Cath still in place: No Assessment/Plan Result Diagram: 10/17/18 0655 10/17/18 0439 Results 24hrs Laboratory Tests Test 10/17/18 04:39 10/17/18 06:55 Sodium Level 139 Potassium Level 3.7 Chloride Level 103 Carbon Dioxide Level 29 Anion Gap 7 Blood Urea Nitrogen 32 H Creatinine 0.78 Est Glomerular Filtrat Rate mL/min > 60 Glucose Level 97 Calcium Level 9.2 Phosphorus Level 4.7 Magnesium Level 1.8 White Blood Count 4.1 L Red Blood Count 2.92 L Hemoglobin 9.3 L Hematocrit 28.8 L Mean Corpuscular Volume 98.6 Mean Corpuscular Hemoglobin 31.8 Mean Corpuscular Hemoglobin Concent 32.3 Red Cell Distribution Width 17.4 H Platelet Count 194 Mean Platelet Volume 9.7 Immature Granulocytes % 0.000 L Neutrophils % 55.0 Lymphocytes % 25.2 Monocytes % 15.2 H Eosinophils % 3.4 Basophils % 1.2 Nucleated Red Blood Cells % 0.0 Immature Granulocytes # 0.000 Neutrophils # 2.3 Lymphocytes # 1.0 Monocytes # 0.6 Eosinophils # 0.1 Basophils # 0.1 Nucleated Red Blood Cells # 0.0 Subjective 24 Hr Interval Summary Free Text/Dictation pain on and off. decreased intensity of sob. Subjective hx not possible: pt critical Constitutional: diaphoresis, poor po; No no complaints, No improved, No chills, No disoriented, No febrile, No requiring IVF, No requiring O2, No other Eyes: No no complaints, No pain, No discharge, No redness, No visual change, No other ENT: No no complaints, No bleeding, No pain, No congestion, No discharge, No dysphagia, No sore throat, No other Respiratory: cough, pleuritic pain, shortness of breath; No no complaints, No pain, No sputum, No wheezing, No other Cardiovascular: edema, orthopenea, palpitations; No no complaints, No chest pain, No lightheadedness, No paroxysmal nocturnal dyspnea, No other Gastrointestinal: constipation, flatus, nausea; No no complaints, No pain, No blood, No decreased appetite, No diarrhea, No passing stool, No vomiting, No other Genitourinary: dysuria; No no complaints, No bleeding, No discharge, No flank pain, No hematuria, No other Musculoskeletal: back pain, bone/joint pain; No no complaints, No neck pain, No restricted range of motion, No swelling, No other Skin: bruising, erythema; No no complaints, No laceration, No pruritis, No rash, No skin lesions, No other Neurologic: dizziness, headache; No no complaints, No confusion, No focal-weakness, No syncope, No seizure, No other Endocrine: polydypsia, dry skin; No no complaints, No polyuria, No temp intolerance, No other Lymphatic: No no complaints, No adenopathy, No tender nodes, No lymphadema, No other Psychological: anxiety, confusion; No no complaints, No nl mood/affect, No depression, No suicidal, No other Exam/Review of Systems Exam Vitals Vital Signs Date Temp Pulse Resp B/P (MAP) Pulse Ox O2 O2 Flow FiO2 Time Delivery Rate 10/17/18 88 104/55 15:54 (71) 10/17/18 98.3 18 99 Room Air 14:50 10/17/18 2.0 08:25 Intake and Output 10/16/18 10/16/18 10/17/18 1515:00 23:00 07:00 IntakeIntake Total 950 ml OutputOutput Total 600 ml BalanceBalance 350 ml Constitutional: alert, oriented, well developed, distress, frail, obese Psych: anxiety, depression; No no complaints, No nl mood/affect, No confusion, No suicidal, No other Head: normocephalic, atraumatic Eyes: EOMI, nl lids, PERRL; No nl conjunctiva, No nl sclera, No icteric, No fundi, disc, No other ENMT: nl nasal mucosa & septum; No nl external ears & nose, No nl lips & teeth, No mucosa pink and moist, No intubated, No tympanic membranes, No other Neck: jvd; No supple, No non-tender, No bruits, No masses, No thyromegaly, No nuchal rigidity, No other Respiratory: congested cough, crackles/rales, diminished breath sounds; No clear to auscultation, No normal air movement, No intercostal retraction, No labored breathing, No respirations, No tactile fremitus, No wheezing, No other Cardiovascular: regular rate and rhythm, nl pulses, bruits, edema Gastrointestinal: soft, non-tender, bowel sounds; No nl liver, spleen, No ascites, No distended, No firm, No hepatomegaly, No mass, No rebound or guarding, No splenomegaly, No surgical scars, No tender, No other Genitourinary - Female: nl adnexae, nl external genitalia; No CMT, No CVA tenderness, No uterus, No other Musculoskeletal: nl extremities to inspection, muscle tone, muscle weakness Extremities: normal pulses, edema, pitting pedal edema; No calf tenderness, No cyanosis, No clubbing, No palpable cord, No tenderness, No other 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: SILK PRESSER 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, nl mental status; No nl speech, No nl strength, No confused, No DTR's symmetric, No focal weakness, No lethargic, No numbness, No reflexes, No unresponsive, No other Skin: No nl turgor, No rash or lesions, No diaphoresis, No ecchymosis, No laceration, No puncture, No other Results Results 24hrs Laboratory Tests Test 10/17/18 04:39 10/17/18 06:55 Sodium Level 139 Potassium Level 3.7 Chloride Level 103 Carbon Dioxide Level 29 Anion Gap 7 Blood Urea Nitrogen 32 H Creatinine 0.78 Est Glomerular Filtrat Rate mL/min > 60 Glucose Level 97 Calcium Level 9.2 Phosphorus Level 4.7 Magnesium Level 1.8 White Blood Count 4.1 L Red Blood Count 2.92 L Hemoglobin 9.3 L Hematocrit 28.8 L Mean Corpuscular Volume 98.6 Mean Corpuscular Hemoglobin 31.8 Mean Corpuscular Hemoglobin Concent 32.3 Red Cell Distribution Width 17.4 H Platelet Count 194 Mean Platelet Volume 9.7 Immature Granulocytes % 0.000 L Neutrophils % 55.0 Lymphocytes % 25.2 Monocytes % 15.2 H Eosinophils % 3.4 Basophils % 1.2 Nucleated Red Blood Cells % 0.0 Immature Granulocytes # 0.000 Neutrophils # 2.3 Lymphocytes # 1.0 Monocytes # 0.6 Eosinophils # 0.1 Basophils # 0.1 Nucleated Red Blood Cells # 0.0 Imaging Imaging 1. PRIMARY ADENOCARCINOMA of the left breast. MULTIPLE BONY METS, PULMONARY METS;LIVER METS CHEMO ON HOLD; PT HAS A VERY GOOD RESPONSE TO CHEMO AND AI 2. Severe pain in the interscapular and lumbar sacral area most probably metastatic lesion possible femoral fracture. pathologic fracture of T9 with 60% of loss of height. Neurosurgical f/u. 3. Obesity. 4. Weight loss 60 pounds during the last 2 years by diet 5. PMS. 6. Myopia. 7. Anemia chronic disease with a drop of her hematocrit to 27; Latest results 28. Will recheck tomorrow;Leukopenia.Thrombocytopenia; 8. Anxiety disorder. Claustrophobia. Increase Ativan to 1 mg every 8 as needed at Lexapro 10 mg daily. 9. Posttraumatic stress disorder. 10. Pain in the left forearm with a history of fracture of ulna and radius. 11. Tachycardia 12. Hypoxemia at night marginal improved after 2 L of nasal cannula oxygen. 13. Deconditioning 14. 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 MRI: 09/28/18:diffuse osseous metastatic disease with multiple pathologic compression fractures at least involving the T4, T5, T7, T9 and T11 levels. There is likely mild cortical breakthrough at several levels resulting in mild central canal narrowing. No gross evidence of cord compression is seen.. 15. Pain syndrome. Today the most painful zone is in the right hip area. 16. Hyponatremia-corrected; hypokalemia now hyperkalemic 5.2 hold potassium p.o. today and hold Aldactone today.Recheck and sodium chloride daily with the dose to 4 mg today 17. Leucopenia-improved. 18. Neutropenia with occasional fever and chills. Last chemotherapy 5 days ago. 19. Hypoalbuminemia. 20.Right sided cp after catheter insertion and correction less discomfort. 21. Decreased edema both lower extremities with [id number]-[id number] with Pleural and Pericardial effusion. 22. pain syndrome 23.bilateral pleural effusions ; s/p left thoracentesis, During the procedure the probe of the u/s was placed to the right side of the chest which showed only minimal amount of liquid on the right pleural cavity. 24. Systolic over diastolic congestive heart failure with a right more than left lower extremity swelling with no DVT in latest venous Doppler. 25. Swelling of the left forearm-persist. Cellulitis of the left forearm with increased edema anteriorly.-Today it is less edematous 26. Pathologic fracture of the right hip;s/p hemiarthroplasty of right hip . 1. PRIMARY ADENOCARCINOMA of the left breast. MULTIPLE BONY METS, PULMONARY METS;LIVER METS CHEMO ON HOLD; PT HAS A VERY GOOD RESPONSE TO CHEMO AND AI 2. Severe pain in the interscapular and lumbar sacral area most probably metastatic lesion possible femoral fracture. pathologic fracture of T9 with 60% of loss of height. Neurosurgical f/u. 3. Obesity. 4. Weight loss 60 pounds during the last 2 years by diet 5. PMS. 6. Myopia. 7. Anemia chronic disease with a drop of her hematocrit to 27; Latest results 28. Will recheck tomorrow;Leukopenia.Thrombocytopenia; 8. Anxiety disorder. Claustrophobia. Increase Ativan to 1 mg every 8 as needed at Lexapro 10 mg daily. 9. Posttraumatic stress disorder. 10. Pain in the left forearm with a history of fracture of ulna and radius. 11. Tachycardia 12. Hypoxemia at night marginal improved after 2 L of nasal cannula oxygen. 13. Deconditioning 14. 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 MRI: 09/28/18:diffuse osseous metastatic disease with multiple pathologic compression fractures at least involving the T4, T5, T7, T9 and T11 levels. There is likely mild cortical breakthrough at several levels resulting in mild central canal narrowing. No gross evidence of cord compression is seen.. 15. Pain syndrome. Today the most painful zone is in the right hip area. 16. Hyponatremia-corrected; hypokalemia now hyperkalemic 5.2 hold potassium p.o. today and hold Aldactone today.Recheck and sodium chloride daily with the dose to 4 mg today 17. Leucopenia-improved. 18. Neutropenia with occasional fever and chills. Last chemotherapy 5 days ago. 19. Hypoalbuminemia. 20.Right sided cp after catheter insertion and correction less discomfort. 21. Decreased edema both lower extremities with [id number]-Dgeotrqq with Pleural and Pericardial effusion. 22. pain syndrome 23.bilateral pleural effusions ; s/p left thoracentesis, During the procedure the probe of the u/s was placed to the right side of the chest which showed only minimal amount of liquid on the right pleural cavity. 24. Systolic over diastolic congestive heart failure with a right more than left lower extremity swelling with no DVT in latest venous Doppler. 25. Swelling of the left forearm-persist. Cellulitis of the left forearm with increased edema anteriorly.-Today it is less edematous 26. Pathologic fracture of the right hip;s/p hemiarthroplasty of right hip . Medications Medication Current Medications Carvedilol (Coreg) 3.125 mg BID PO Last administered on 10/16/18 21:00; Admin Dose 3.125 MG; Start 09/09/18 at 22:30 Spironolactone (Aldactone) 50 mg DAILY PO Last administered on 10/17/18 08:59; Admin Dose 50 MG; Start 09/13/18 at 18:00 Potassium Chloride (Klor-Con 20) 20 meq BID PO Last administered on 10/01/18 20:23; Admin Dose 20 MEQ; Start 09/15/18 at 21:00; Status Hold Oxycodone HCl (Oxycontin) 20 mg Q12 PO Last administered on 10/17/18 08:58; Admin Dose 20 MG; Start 09/15/18 at 21:00 Olopatadine HCl (Patanol 0.1% Oph) 1 drop BID BOTH EYES Last administered on 10/16/18 09:01; Admin Dose 1 DROP; Start 09/16/18 at 21:00 Loratadine (Claritin) 10 mg DAILY PO Last administered on 10/17/18 08:59; Admin Dose 10 MG; Start 09/17/18 at 09:00 Lidocaine (Lidoderm) 2 patch DAILY TD Last administered on 10/14/18 08:29; Admin Dose 2 PATCH; Start 09/26/18 at 17:30 Hydromorphone HCl (Dilaudid) 0.4 mg Q2H PRN IV .PAIN 6-10 Last administered on 10/02/18 09:21; Admin Dose 0.4 MG; Start 10/01/18 at 16:30 Nalbuphine HCl (Nubain) 10 mg Q4H PRN IV .PRURITUS; Start 10/01/18 at 16:30 Naloxone HCl (Narcan) 0.2 mg Q2M PRN IV .RESP RATE; Start 10/01/18 at 16:30 Simethicone (Mylicon) 80 mg TID PRN PO .GAS; Start 10/01/18 at 16:30 IV Flush (NS 3 ml) 3 ml per protocol IV ; Start 10/01/18 at 16:30 Ondansetron HCl 8 mg/Dextrose 54 ml @ 212 mls/hr Q6H PRN IV NAUSEA AND/OR VOMITING Last administered on 10/09/18at 14:33; Admin Dose 212 MLS/HR; Start 10/03/18 at 11:30 Morphine Sulfate (morphine) 4 mg Q2 PRN IV SEVERE PAIN LEVEL 7-10 Last administered on 10/17/18at 10:07; Admin Dose 4 MG; Start 10/03/18 at 18:30 Anastrozole (Arimidex) 1 mg DAILY PO Last administered on 10/17/18 09:00; Admin Dose 1 MG; Start 10/11/18 at 09:00 Furosemide (Lasix) 40 mg BID DIURETICS IV Last administered on 10/17/18at 05:17; Admin Dose 40 MG; Start 10/14/18 at 18:00 Albuterol/ Ipratropium (Duoneb) 3 ml Q8H RESP THERAPY PRN HHN SHORTNESS OF BREATH; Start 10/15/18 at 16:00 Miscellaneous Information 1 ea BID XX ; Start 10/16/18 at 22:00 RUSS JEROME MD October 17, 2018 16:02
--- NOTE | 2018-10-17 18:04 | CONS ---
Assessment/Plan Assessment/Plan Hospital Course (Demo Recall) IMPRESSION: 1. Congestive heart failure exacerbation, diastolic by most recent echo, acute on chronic.-neg trop x 3. Echo this admit EF 60/small pericardial effusion 2. Hypotension, currently bordereline low 3. Anasarca-improved s/p additional albumin doses 4. Metastatic breast carcinoma. 5. Leukopenia. 6. Thrombocytopenia.-ongoing 7. Pericardial effusion-small by echo with no HD consequence at this time 8. Pleural effusions-recurrent. Initial cytology negative. ? PLeurodesis 9. R femoral head pathologic fracture now post-op s/p ORIF 10/02/18. and now with avulsion fracture in new place in same leg 10. [id number] requiring transfusion 11.Tachycardia-S tach by ecg 10/03. Likley driven by pain/discomfort-overall improved with reasonable HR control Recc: -On med-surg -Continue Lasix diuresis BID as tolerated -s/p IV albumin doses with some mild improvement -folllow K closely with aldactone resumed -Continue arimidex -coreg currently held due to marginal BP -Pain control Consultation Date/Type/Reason Admit Date/Time Sep 09, 2018 at 14:53 Initial Consult Date 09/09/18 Type of Consult Cardiology Reason for Consultation CHF Requesting Provider: RUSS JEROME MD Date/Time of Note DATE: 10/17/18 TIME: 18:01 Exam/Review of Systems Vital Signs Vitals Vital Signs Date Temp Pulse Resp B/P (MAP) Pulse Ox O2 O2 Flow FiO2 Time Delivery Rate 10/17/18 88 104/55 15:54 (71) 10/17/18 98.3 18 99 Room Air 14:50 10/17/18 2.0 08:25 Intake and Output 10/16/18 10/16/18 10/17/18 1515:00 23:00 07:00 IntakeIntake Total 950 ml OutputOutput Total 600 ml BalanceBalance 350 ml Exam Exam Review of Systems: CONSTITUTIONAL: No fevers, chills. PULMONARY: No sob CARDIOVASCULAR: No chest pain/palpitations GASTROINTESTINAL: No nausea/vomiting. GENITOURINARY: No hematuria/dysuria. MUSCULOSKELETAL: No myagias/arthalgias. PSYCHIATRIC: The patient denies depression. NEUROLOGIC: No weakness Constitutional: alert Psych: no complaints Head: normocephalic ENMT: mucosa pink and moist Neck: supple, jvd (9 cm water) Respiratory: diminished breath sounds Cardiovascular: regular rate and rhythm Gastrointestinal: soft, non-tender Musculoskeletal: muscle tone (normal) Extremities: pitting pedal edema (bilateral/anasarca) Labs Result Diagram: 10/17/18 0655 10/17/18 0439 Results 24hrs Laboratory Tests Test 10/17/18 04:38 10/17/18 04:39 10/17/18 06:55 Iron Level 74 Total Iron Binding Capacity 170 L Percent Iron Saturation 44 Sodium Level 139 Potassium Level 3.7 Chloride Level 103 Carbon Dioxide Level 29 Anion Gap 7 Blood Urea Nitrogen 32 H Creatinine 0.78 Est Glomerular Filtrat Rate mL/min > 60 Glucose Level 97 Calcium Level 9.2 Phosphorus Level 4.7 Magnesium Level 1.8 White Blood Count 4.1 L Red Blood Count 2.92 L Hemoglobin 9.3 L Hematocrit 28.8 L Mean Corpuscular Volume 98.6 Mean Corpuscular Hemoglobin 31.8 Mean Corpuscular Hemoglobin Concent 32.3 Red Cell Distribution Width 17.4 H Platelet Count 194 Mean Platelet Volume 9.7 Immature Granulocytes % 0.000 L Neutrophils % 55.0 Lymphocytes % 25.2 Monocytes % 15.2 H Eosinophils % 3.4 Basophils % 1.2 Nucleated Red Blood Cells % 0.0 Immature Granulocytes # 0.000 Neutrophils # 2.3 Lymphocytes # 1.0 Monocytes # 0.6 Eosinophils # 0.1 Basophils # 0.1 Nucleated Red Blood Cells # 0.0 Medications Medications Current Medications Carvedilol (Coreg) 3.125 mg BID PO Last administered on 10/16/18at 21:00; Admin Dose 3.125 MG; Start 09/09/18 at 22:30 Spironolactone (Aldactone) 50 mg DAILY PO Last administered on 10/17/18 08:59; Admin Dose 50 MG; Start 09/13/18 at 18:00 Potassium Chloride (Klor-Con 20) 20 meq BID PO Last administered on 10/01/18at 20:23; Admin Dose 20 MEQ; Start 09/15/18 at 21:00; Status Hold Oxycodone HCl (Oxycontin) 20 mg Q12 PO Last administered on 10/17/18at 08:58; Admin Dose 20 MG; Start 09/15/18 at 21:00 Olopatadine HCl (Patanol 0.1% Oph) 1 drop BID BOTH EYES Last administered on 10/16/18 09:01; Admin Dose 1 DROP; Start 09/16/18 at 21:00 Loratadine (Claritin) 10 mg DAILY PO Last administered on 10/17/18 08:59; Admin Dose 10 MG; Start 09/17/18 at 09:00 Lidocaine (Lidoderm) 2 patch DAILY TD Last administered on 10/14/18 08:29; Admin Dose 2 PATCH; Start 09/26/18 at 17:30 Hydromorphone HCl (Dilaudid) 0.4 mg Q2H PRN IV .PAIN 6-10 Last administered on 10/02/18 09:21; Admin Dose 0.4 MG; Start 10/01/18 at 16:30 Nalbuphine HCl (Nubain) 10 mg Q4H PRN IV .PRURITUS; Start 10/01/18 at 16:30 Naloxone HCl (Narcan) 0.2 mg Q2M PRN IV .RESP RATE; Start 10/01/18 at 16:30 Simethicone (Mylicon) 80 mg TID PRN PO .GAS; Start 10/01/18 at 16:30 IV Flush (NS 3 ml) 3 ml per protocol IV ; Start 10/01/18 at 16:30 Ondansetron HCl 8 mg/Dextrose 54 ml @ 212 mls/hr Q6H PRN IV NAUSEA AND/OR VOMITING Last administered on 10/09/18 14:33; Admin Dose 212 MLS/HR; Start 10/03/18 at 11:30 Morphine Sulfate (morphine) 4 mg Q2 PRN IV SEVERE PAIN LEVEL 7-10 Last ad ministered on 10/17/18 10:07; Admin Dose 4 MG; Start 10/03/18 at 18:30 Anastrozole (Arimidex) 1 mg DAILY PO Last administered on 10/17/18 09:00; Admin Dose 1 MG; Start 10/11/18 at 09:00 Furosemide (Lasix) 40 mg BID DIURETICS IV Last administered on 10/17/18 05:17; Admin Dose 40 MG; Start 10/14/18 at 18:00 Albuterol/ Ipratropium (Duoneb) 3 ml Q8H RESP THERAPY PRN HHN SHORTNESS OF BREATH; Start 10/15/18 at 16:00 Miscellaneous Information 1 ea BID XX ; Start 10/16/18 at 22:00 KAMILA TERESA October 17, 2018 18:04
[2018-10-17] MEDS: ONDANSETRON INJ 8 MG in DEXTROSE 5% 50 ML IV PRN (18:25)
[2018-10-17 19:50] VITALS: BP 114/66; PULSE 110; RESP 20
--- NOTE | 2018-10-17 23:21 | CONS ---
Assessment/Plan Assessment/Plan Hospital Course (Demo Recall) METASTATIC BREAST CANCER WITH PRIMARY ADENOCARCINOMA IN the left breast. MULTIPLE BONY METS, PULMONARY METS, LIVER METS CHEMO ON HOLD PT HAS A VERY GOOD RESPONSE TO CHEMO AND AI CONT AI FOR NOW CT ABD FOR RESTAGING 08.27.18- noted , stable CT CHEST- STABLE/IMPROVING 1. Moderate bilateral pleural effusions with adjacent lung base consolidation/atelectasis. 2. Moderate pericardial effusion. 3. Decreased size of previously prominent mediastinal lymph nodes. Decreased size of sub centimeter axillary lymph nodes. 4. Stable nonspecific pulmonary nodules as described above. 5. Stable soft tissue nodule of the anterior left chest wall/breast. 6. Redemonstrated diffuse sclerotic metastatic osseous lesions with stable compression deformities of the thoracic spine. 7. Nodular contour of the liver with multiple hypoattenuating masses, grossly similar to prior exam. CYTOLOGY-NEG CARD - TO MONITOR FOR PERICARDIAL TAMPONADE, FOR NOW NO NEED TO DO PERICARDIOCENTESIS R HIP PAIN MRI R HIP- nondisplaced pathological fracture of the right femoral head merging with the known metastatic lesion. Interval development of synovitis and a large joint effusion as well as psoas bursitis. CT PELVIS- Subacute to chronic pathologic subcapital fracture of the right femoral neck. ORTHO - post-op s/p ORIF 10/02/18 CONT PAIN CONTROL, PT Leucopenia- post chemo NEUPOGEN- DC monitor closely post Neutropenia with occasional fever and chills. Anemia chronic disease SOB PLEURAL EFFUSIONS post thoracentesis cytology -NEG ON 09.18.18 AND 10.01.18 Fluid overload diuretic cardiology F-UP Congestive heart failure exacerbation, diastolic by most recent echo, acute on chronic.-neg trop x 3. Echo this admit EF 60/small pericardia effusion Hypotension, currently borderline-overall improved Anasarca. Severe pain in the interscapular and lumbar sacral area most probably metastatic lesion possible femoral fracture. pathologic fracture of T9 with 60% of loss of height. Obesity. Weight loss 60 pounds during the last 2 years PMS. Myopia. Anxiety disorder. Claustrophobia. Posttraumatic stress disorder. Pain in the left forearm with a history of fracture of ulna and radius. Tachycardia Hypoxemia at night marginal improved after 2 L of nasal cannula oxygen. Deconditioning Pain syndrome. Today the most painful zone is in the right hip area. X-ray did not show any fractures. Hyponatremia- resolved Hypoalbuminemia Right sided cp after catheter insertion and correction less discomfort. Decreased edema both lower extremities with hypotension-improving Swelling of the left forearm-persist. Consultation Date/Type/Reason Admit Date/Time Sep 09, 2018 at 14:53 Initial Consult Date 09/09/[address] [facility] Requesting Provider: RUSS JEROME MD Date/Time of Note DATE: 10/17/18 TIME: 23:20 24 HR Interval Summary Free Text/Dictation ALL NOTED NAD STARTED TO AMBULATE Exam/Review of Systems Exam Vitals Vital Signs Date Temp Pulse Resp B/P (MAP) Pulse Ox O2 O2 Flow FiO2 Time Delivery Rate 10/17/18 88 18 21 19:59 10/17/18 99.1 114/66 94 Room Air 19:50 (82) 10/17/18 2.0 08:25 Intake and Output 10/16/18 10/16/18 10/17/18 1414:59 22:59 06:59 IntakeIntake Total 950 ml OutputOutput Total 600 ml BalanceBalance 350 ml Exam General: WN/WD/NAD, AOx 3 HEENT: Unicetric/atraumatic/EOMI (follow commands) NECK: JVD elevated, no thyromegaly Lymph: no lymphadenopathy HEART: regular with no S3, II/ systolic murmur at apex LUNGS: Coarse sounds ABD: soft, NT, ND, +BS : Intact Neuro: non focal SKIN: chronic changes EXT: Bruising, 2+ edema Results Result Diagram: 10/17/18 0655 10/17/18 0439 Results 24hrs Laboratory Tests Test 10/17/18 04:38 10/17/18 04:39 10/17/18 06:55 Iron Level 74 Total Iron Binding Capacity 170 L Percent Iron Saturation 44 Sodium Level 139 Potassium Level 3.7 Chloride Level 103 Carbon Dioxide Level 29 Anion Gap 7 Blood Urea Nitrogen 32 H Creatinine 0.78 Est Glomerular Filtrat Rate mL/min > 60 Glucose Level 97 Calcium Level 9.2 Phosphorus Level 4.7 Magnesium Level 1.8 White Blood Count 4.1 L Red Blood Count 2.92 L Hemoglobin 9.3 L Hematocrit 28.8 L Mean Corpuscular Volume 98.6 Mean Corpuscular Hemoglobin 31.8 Mean Corpuscular Hemoglobin Concent 32.3 Red Cell Distribution Width 17.4 H Platelet Count 194 Mean Platelet Volume 9.7 Immature Granulocytes % 0.000 L Neutrophils % 55.0 Lymphocytes % 25.2 Monocytes % 15.2 H Eosinophils % 3.4 Basophils % 1.2 Nucleated Red Blood Cells % 0.0 Immature Granulocytes # 0.000 Neutrophils # 2.3 Lymphocytes # 1.0 Monocytes # 0.6 Eosinophils # 0.1 Basophils # 0.1 Nucleated Red Blood Cells # 0.0 Medications Medication Current Medications Carvedilol (Coreg) 3.125 mg BID PO Last administered on 10/17/18 22:21; Admin Dose 3.125 MG; Start 09/09/18 at 22:30 Spironolactone (Aldactone) 50 mg DAILY PO Last administered on 10/17/18 08:59; Admin Dose 50 MG; Start 09/13/18 at 18:00 Potassium Chloride (Klor-Con 20) 20 meq BID PO Last administered on 10/01/18 20:23; Admin Dose 20 MEQ; Start 09/15/18 at 21:00; Status Hold Oxycodone HCl (Oxycontin) 20 mg Q12 PO Last administered on 10/17/18 22:20; Admin Dose 20 MG; Start 09/15/18 at 21:00 Olopatadine HCl (Patanol 0.1% Oph) 1 drop BID BOTH EYES Last administered on 10/16/18 09:01; Admin Dose 1 DROP; Start 09/16/18 at 21:00 Loratadine (Claritin) 10 mg DAILY PO Last administered on 10/17/18 08:59; Admin Dose 10 MG; Start 09/17/18 at 09:00 Lidocaine (Lidoderm) 2 patch DAILY TD Last administered on 10/14/18 08:29; Admin Dose 2 PATCH; Start 09/26/18 at 17:30 Hydromorphone HCl (Dilaudid) 0.4 mg Q2H PRN IV .PAIN 6-10 Last administered on 10/02/18 09:21; Admin Dose 0.4 MG; Start 10/01/18 at 16:30 Nalbuphine HCl (Nubain) 10 mg Q4H PRN IV .PRURITUS; Start 10/01/18 at 16:30 Naloxone HCl (Narcan) 0.2 mg Q2M PRN IV .RESP RATE; Start 10/01/18 at 16:30 Simethicone (Mylicon) 80 mg TID PRN PO .GAS; Start 10/01/18 at 16:30 IV Flush (NS 3 ml) 3 ml per protocol IV ; Start 10/01/18 at 16:30 Ondansetron HCl 8 mg/Dextrose 54 ml @ 212 mls/hr Q6H PRN IV NAUSEA AND/OR VOMITING Last administered on 10/17/18 18:25; Admin Dose 212 MLS/HR; Start 10/03/18 at 11:30 Morphine Sulfate (morphine) 4 mg Q2 PRN IV SEVERE PAIN LEVEL 7-10 Last administered on 10/17/18 22:24; Admin Dose 4 MG; Start 10/03/18 at 18:30 Anastrozole (Arimidex) 1 mg DAILY PO Last administered on 10/17/18 09:00; Admin Dose 1 MG; Start 10/11/18 at 09:00 Furosemide (Lasix) 40 mg BID DIURETICS IV Last administered on 10/17/18 05:17; Admin Dose 40 MG; Start 10/14/18 at 18:00 Albuterol/ Ipratropium (Duoneb) 3 ml Q8H RESP THERAPY PRN HHN SHORTNESS OF BREATH Last administered on 10/17/18 19:58; Admin Dose 3 ML; Start 10/15/18 at 16:00 Miscellaneous Information 1 ea BID XX ; Start 10/16/18 at 22:00 DES DUNAWAY MD October 17, 2018 23:21
[2018-10-18 02:25] VITALS: BP 102/49; PULSE 110; RESP 20
[2018-10-18] MEDS: FUROSEMIDE 40 MG INJ IV SCH ×2 (05:29→17:26)
--- NOTE | 2018-10-18 06:49 | PN ---
Date/Time of Note Date/Time of Note DATE: 10/18/18 TIME: 06:45 Assessment/Plan VTE Prophylaxis Risk score (from Ns)>0 risk: 6 SCD applied (from Ns): No SCD contraindicated: other Pharmacological prophylaxis: LMWH Lines/Catheters IV Catheter Type (from Nrs): Peripheral IV Central line still needed: Yes Urinary Cath still in place: No Assessment/Plan Assessment/Plan 1. PRIMARY ADENOCARCINOMA of the left breast. MULTIPLE BONY METS, PULMONARY METS;LIVER METS CHEMO ON HOLD; PT HAS A VERY GOOD RESPONSE TO CHEMO AND AI 2. Severe pain in the interscapular and lumbar sacral area most probably metastatic lesion possible femoral fracture. pathologic fracture of T9 with 60% of loss of height. Neurosurgical f/u. 3. Obesity. 4. Weight loss 60 pounds during the last 2 years by diet 5. PMS. 6. Myopia. 7. Anemia chronic disease with a drop of her hematocrit to 27; Latest results 28. Will recheck tomorrow;Leukopenia.Thrombocytopenia; 8. Anxiety disorder. Claustrophobia. Increase Ativan to 1 mg every 8 as needed at Lexapro 10 mg daily. 9. Posttraumatic stress disorder. 10. Pain in the left forearm with a history of fracture of ulna and radius. 11. Tachycardia 12. Hypoxemia at night marginal improved after 2 L of nasal cannula oxygen. 13. Deconditioning 14. 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 MRI: 09/28/18:diffuse osseous metastatic disease with multiple pathologic compression fractures at least involving the T4, T5, T7, T9 and T11 levels. There is likely mild cortical breakthrough at several levels resulting in mild central canal narrowing. No gross evidence of cord compression is seen.. 15. Pain syndrome. Today the most painful zone is in the right hip area. 16. Hyponatremia-corrected; hypokalemia now hyperkalemic 5.2 hold potassium p.o. today and hold Aldactone today.Recheck and sodium chloride daily with the dose to 4 mg today 17. Leucopenia-improved. 18. Neutropenia with occasional fever and chills. Last chemotherapy 5 days ag o. 19. Hypoalbuminemia. 20.Right sided cp after catheter insertion and correction less d iscomfort. 21. Decreased edema both lower extremities with [id number] with Pleural and Pericardial effusion. 22. pain syndrome 23.bilateral pleural effusions ; s/p left thoracentesis, During the procedure the probe of the u/s was placed to the right side of the chest which showed only minimal amount of liquid on the right pleural cavity. 24. Systolic over diastolic congestive heart failure with a right more than left lower extremity swelling with no DVT in latest venous Doppler. 25. Swelling of the left forearm-persist. Cellulitis of the left forearm with increased edema anteriorly.-Today it is less edematous 26. Pathologic fracture of the right hip;s/p hemiarthroplasty of right hip . Result Diagram: 10/17/18 0655 10/18/18 0440 Results 24hrs Laboratory Tests Test 10/17/18 06:55 10/18/18 04:40 White Blood Count 4.1 L Red Blood Count 2.92 L Hemoglobin 9.3 L Hematocrit 28.8 L Mean Corpuscular Volume 98.6 Mean Corpuscular Hemoglobin 31.8 Mean Corpuscular Hemoglobin Concent 32.3 Red Cell Distribution Width 17.4 H Platelet Count 194 Mean Platelet Volume 9.7 Immature Granulocytes % 0.000 L Neutrophils % 55.0 Lymphocytes % 25.2 Monocytes % 15.2 H Eosinophils % 3.4 Basophils % 1.2 Nucleated Red Blood Cells % 0.0 Immature Granulocytes # 0.000 Neutrophils # 2.3 Lymphocytes # 1.0 Monocytes # 0.6 Eosinophils # 0.1 Basophils # 0.1 Nucleated Red Blood Cells # 0.0 Sodium Level 138 Potassium Level 4.0 Chloride Level 100 Carbon Dioxide Level 32 H Anion Gap 6 Blood Urea Nitrogen 28 H Creatinine 0.83 Est Glomerular Filtrat Rate mL/min > 60 Glucose Level 130 Calcium Level 8.8 Phosphorus Level 5.4 H Magnesium Level 1.7 Subjective 24 Hr Interval Summary Free Text/Dictation Right hip pain. Constitutional: poor po; No no complaints, No improved, No chills, No diaphoresis, No disoriented, No febrile, No requiring IVF, No requiring O2, No other Eyes: No no complaints, No pain, No discharge, No redness, No visual change, No other ENT: No no complaints, No bleeding, No pain, No congestion, No discharge, No dysphagia, No sore throat, No other Respiratory: cough; No no complaints, No pain, No pleuritic pain, No shortness of breath, No sputum, No wheezing, No other Cardiovascular: edema; No no complaints, No chest pain, No lightheadedness, No orthopenea, No palpitations, No paroxysmal nocturnal dyspnea, No other Gastrointestinal: constipation, decreased appetite; No no complaints, No pain, No blood, No diarrhea, No flatus, No nausea, No passing stool, No vomiting, No other Genitourinary: dysuria; No no complaints, No bleeding, No discharge, No flank pain, No hematuria, No other Musculoskeletal: back pain, bone/joint pain, neck pain Skin: No no complaints, No bruising, No erythema, No laceration, No pruritis, No rash, No skin lesions, No other Neurologic: confusion; No no complaints, No dizziness, No focal-weakness, No headache, No syncope, No seizure, No other Endocrine: No no complaints, No polyuria, No polydypsia, No dry skin, No temp intolerance, No other Exam/Review of Systems Exam Vitals Vital Signs Date Temp Pulse Resp B/P (MAP) Pulse Ox O2 O2 Flow FiO2 Time Delivery Rate 10/18/18 98.1 110 20 102/49 92 Room Air 02:25 (66) 10/18/18 2.0 01:12 10/17/18 21 19:59 Intake and Output 10/17/18 10/17/18 10/18/18 1515:00 23:00 07:00 IntakeIntake Total 854 ml OutputOutput Total 800 ml 400 ml BalanceBalance -800 ml 454 ml Constitutional: alert, oriented, well developed, frail, obese; No non-verbal, No distress, No other Psych: anxiety, confusion; No no complaints, No nl mood/affect, No depression, No suicidal, No other Head: normocephalic, atraumatic; No lacerations, No hematomas, No other Eyes: EOMI, PERRL ENMT: nl external ears & nose, nl nasal mucosa & septum; No nl lips & teeth, No mucosa pink and moist, No intubated, No tympanic m embranes, No other Neck: jvd, nuchal rigidity; No supple, No non-tender, No bruits, No masses, No thyromegaly, No other Respiratory: congested cough, diminished breath sounds; No normal air movement, No crackles/rales, No intercostal retraction, No lab ored breathing, No respirations, No tactile fremitus, No wheezing, No other Cardiovascular: regular rate and rhythm, nl pulses, edema; No bruits, No diastolic murmur, No gallop, No irregular rhythm, No jugular venous distention (JVD), No murmurs/extra sounds, No rub, No systolic murmur, No S3, No S4, No other Gastrointestinal: soft, nl liver, spleen, bowel sounds; No non-tender, No ascites, No distended, No firm, No hepatomegaly, No mass, No rebound or guarding, No splenomegaly, No surgical scars, No tender, No other Genitourinary - Female: nl adnexae, nl external genitalia Musculoskeletal: nl extremities to inspection, nl gait and stance Extremities: normal pulses, pitting pedal edema (right leg and left upper extgremity the most.); No calf tenderness, No cyanosis, No clubbing, No edema, No palpable cord, No tenderness, No other 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: No nl mental status, No nl speech, No nl strength, No confused, No DTR's symmetric, No focal weakness, No lethargic, No numbness, No reflexes, No unresponsive, No other Skin: nl turgor; No rash or lesions, No diaphoresis, No ecchymosis, No laceration, No puncture, No other Results Results 24hrs Laboratory Tests Test 10/17/18 06:55 10/18/18 04:40 White Blood Count 4.1 L Red Blood Count 2.92 L Hemoglobin 9.3 L Hematocrit 28.8 L Mean Corpuscular Volume 98.6 Mean Corpuscular Hemoglobin 31.8 Mean Corpuscular Hemoglobin Concent 32.3 Red Cell Distribution Width 17.4 H Platelet Count 194 Mean Platelet Volume 9.7 Immature Granulocytes % 0.000 L Neutrophils % 55.0 Lymphocytes % 25.2 Monocytes % 15.2 H Eosinophils % 3.4 Basophils % 1.2 Nucleated Red Blood Cells % 0.0 Immature Granulocytes # 0.000 Neutrophils # 2.3 Lymphocytes # 1.0 Monocytes # 0.6 Eosinophils # 0.1 Basophils # 0.1 Nucleated Red Blood Cells # 0.0 Sodium Level 138 Potassium Level 4.0 Chloride Level 100 Carbon Dioxide Level 32 H Anion Gap 6 Blood Urea Nitrogen 28 H Creatinine 0.83 Est Glomerular Filtrat Rate mL/min > 60 Glucose Level 130 Calcium Level 8.8 Phosphorus Level 5.4 H Magnesium Level 1.7 Medications Medication Current Medications Carvedilol (Coreg) 3.125 mg BID PO Last administered on 10/17/18 22:21; Admin Dose 3.125 MG; Start 09/09/18 at 22:30 Spironolactone (Aldactone) 50 mg DAILY PO Last administered on 10/17/18 08:59; Admin Dose 50 MG; Start 09/13/18 at 18:00 Potassium Chloride (Klor-Con 20) 20 meq BID PO Last administered on 10/01/18 20:23; Admin Dose 20 MEQ; Start 09/15/18 at 21:00; Status Hold Oxycodone HCl (Oxycontin) 20 mg Q12 PO Last administered on 10/17/18 22:20; Admin Dose 20 MG; Start 09/15/18 at 21:00 Olopatadine HCl (Patanol 0.1% Oph) 1 drop BID BOTH EYES Last administered on 10/16/18 09:01; Admin Dose 1 DROP; Start 09/16/18 at 21:00 Loratadine (Claritin) 10 mg DAILY PO Last administered on 10/17/18 08:59; Admin Dose 10 MG; Start 09/17/18 at 09:00 Lidocaine (Lidoderm) 2 patch DAILY TD Last administered on 10/14/18 08:29; Admin Dose 2 PATCH; Start 09/26/18 at 17:30 Hydromorphone HCl (Dilaudid) 0.4 mg Q2H PRN IV .PAIN 6-10 Last administered on 10/02/18 09:21; Admin Dose 0.4 MG; Start 10/01/18 at 16:30 Nalbuphine HCl (Nubain) 10 mg Q4H PRN IV .PRURITUS; Start 10/01/18 at 16:30 Naloxone HCl (Narcan) 0.2 mg Q2M PRN IV .RESP RATE; Start 10/01/18 at 16:30 Simethicone (Mylicon) 80 mg TID PRN PO .GAS; Start 10/01/18 at 16:30 IV Flush (NS 3 ml) 3 ml per protocol IV ; Start 10/01/18 at 16:30 Ondansetron HCl 8 mg/Dextrose 54 ml @ 212 mls/hr Q6H PRN IV NAUSEA AND/OR VOMITING Last administered on 10/17/18 18:25; Admin Dose 212 MLS/HR; Start 10/03/18 at 11:30 Morphine Sulfate (morphine) 4 mg Q2 PRN IV SEVERE PAIN LEVEL 7-10 Last administered on 10/17/18 22:24; Admin Dose 4 MG; Start 10/03/18 at 18:30 Anastrozole (Arimidex) 1 mg DAILY PO Last administered on 10/17/18 09:00; Admin Dose 1 MG; Start 10/11/18 at 09:00 Furosemide (Lasix) 40 mg BID DIURETICS IV Last administered on 10/18/18 05:29; Admin Dose 40 MG; Start 10/14/18 at 18:00 Albuterol/ Ipratropium (Duoneb) 3 ml Q8H RESP THERAPY PRN HHN SHORTNESS OF BREATH Last administered on 10/17/18 19:58; Admin Dose 3 ML; Start 10/15/18 at 16:00 Miscellaneous Information 1 ea BID XX ; Start 10/16/18 at 22:00 RUSS JEROME MD October 18, 2018 06:49
[2018-10-18] MEDS ORDERED: MAGNESIUM SULFATE 2 GM/50 ML 50 ML IVPB ONE (07:00)
[2018-10-18 08:30] VITALS: BP 110/69; PULSE 110; RESP 18
[2018-10-18] MEDS: oxyCODONE (CR) 10 MG TAB [oxyCONTIN] PO SCH ×2 (08:30→20:29)
[2018-10-18] MEDS: LORATADINE 10 MG TAB PO SCH (08:30)
[2018-10-18] MEDS: SPIRONOLACTONE 50 MG TAB PO SCH (08:31)
[2018-10-18] MEDS: ANASTROZOLE 1 MG TAB PO SCH (08:33)
[2018-10-18] MEDS: LIDOCAINE 5% PATCH TD SCH (08:34)
[2018-10-18] MEDS: (Nursing Note) XX SCH ×2 (08:40→21:00)
[2018-10-18] MEDS: OLOPATADINE 0.1% 5 ML OPH BOTH EYES SCH ×2 (08:41→21:00)
--- NOTE | 2018-10-18 09:44 | PN ---
DATE: 10/18/2018 SUBJECTIVE: The patient is clinically improving. The patient states her swelling and edema in upper extremities and lower extremities have improved. The patient continues to have episodes of dizzines s, lightheadedness. No other events noted. OBJECTIVE: VITAL SIGNS: Blood pressure is 102/49, respirations 20, pulse 110, temperature 98.1. HEENT: Head is normocephalic. NECK: Supple. HEART: Regular rate. LUNGS: Show diminished breath sounds at the base. ABDOMEN: Soft, nontender to palpation without rebound or guarding. EXTREMITIES: Negative for clubbing, cyanosis. Positive edema in left upper extremity, bilateral low er extremities, improving. DERMATOLOGIC: No rashes. NEUROLOGIC: No change in exam. MEDICATIONS: Reviewed. LABORATORY DATA: Reviewed. ASSESSMENT AND PLAN: 1. Volume overload. Etiology is multifactorial secondary to diastolic heart failure and third spaci ng due to hypoalbuminemia and lymphedema. The patient is on Lasix and intermittent metolazone. The patient had a good clinical response with metolazone. Plan is to continue current diuretic regimen. We will give the patient additional dose of metolazone tomorrow. Monitor hemodynamics and blood pre ssures closely. 2. Anemia. Monitor hemoglobin and hematocrit levels. 3. Mineral bone disorder, monitor calcium and phosphorus levels. 4. Nonoliguric acute kidney injury, etiology is secondary to hemodynamics. Renal function is improv ing. Monitor closely on diuretic therapy. 5. Hypernatremia, resolved. 6. Breast cancer with metastasis. Continue to monitor. 7. History of pleural effusion, status post thoracentesis. 8. Right hip fracture, status post arthroplasty. 9. Chronic pain syndrome. Continue current pain regimen. 10. Respiratory failure, stable. Continue medical management. Dictated By: ANDRÉS TATUM DO NR/NTS Conf#: [id number] DID#: [id number] CC: RUSS JEROME MD;*End*
[2018-10-18] MEDS: morphine 4 MG/ML VIAL IV PRN ×2 (14:16→21:20)
--- NOTE | 2018-10-18 15:16 | CONS ---
Assessment/Plan Assessment/Plan Hospital Course (Demo Recall) IMPRESSION: 1. Congestive heart failure exacerbation, diastolic by most recent echo, acute on chronic.-neg trop x 3. Echo this admit EF 60/small pericardial effusion 2. Hypotension, currently bordereline low 3. Anasarca-improved s/p additional albumin doses 4. Metastatic breast carcinoma. 5. Leukopenia. 6. Thrombocytopenia.-ongoing 7. Pericardial effusion-small by echo with no HD consequence at this time 8. Pleural effusions-recurrent. Initial cytology negative. ? PLeurodesis 9. R femoral head pathologic fracture now post-op s/p ORIF 10/02/18. and now with avulsion fracture in new place in same leg 10. [id number] requiring transfusion 11.Tachycardia-S tach by ecg 10/03. Likley driven by pain/discomfort-again tachy today Recc: -On med-surg -Continue Lasix diuresis BID as tolerated -s/p IV albumin doses with some mild improvement -folllow K closely with aldactone resumed -Continue arimidex -coreg as toleraed -Pain control -12 lead ecg to document rhythm Consultation Date/Type/Reason Admit Date/Time Sep 09, 2018 at 14:53 Initial Consult Date 09/09/18 Type of Consult Cardiology Reason for Consultation CHF Requesting Provider: RUSS JEROME MD Date/Time of Note DATE: 10/18/18 TIME: 15:14 Exam/Review of Systems Vital Signs Vitals Vital Signs Date Temp Pulse Resp B/P (MAP) Pulse Ox O2 O2 Flow FiO2 Time Delivery Rate 10/18/18 Nasal 2.0 08:30 Cannula 10/18/18 98.1 110 20 102/49 92 02:25 (66) 10/17/18 21 19:59 Intake and Output 10/17/18 10/17/18 10/18/18 1515:00 23:00 07:00 IntakeIntake Total 854 ml OutputOutput Total 800 ml 400 ml BalanceBalance -800 ml 454 ml Exam Exam Review of Systems: CONSTITUTIONAL: No fevers, chills. PULMONARY: No sob CARDIOVASCULAR: No chest pain/palpitations GASTROINTESTINAL: No nausea/vomiting. GENITOURINARY: No hematuria/dysuria. MUSCULOSKELETAL: pain in leg PSYCHIATRIC: The patient denies depression. NEUROLOGIC: mild generalized weakness Constitutional: alert Psych: no complaints Head: normocephalic ENMT: mucosa pink and moist Neck: supple, jvd (9 cm water) Respiratory: diminished breath sounds (at bases/B) Cardiovascular: other (tachycardic) Gastrointestinal: soft, non-tender Musculoskeletal: muscle weakness (mild generalized) Extremities: pitting pedal edema (UE/LE) Labs Result Diagram: 10/17/18 0655 10/18/18 0440 Results 24hrs Laboratory Tests Test 10/18/18 04:40 Sodium Level 138 Potassium Level 4.0 Chloride Level 100 Carbon Dioxide Level 32 H Anion Gap 6 Blood Urea Nitrogen 28 H Creatinine 0.83 Est Glomerular Filtrat Rate mL/min > 60 Glucose Level 130 Calcium Level 8.8 Phosphorus Level 5.4 H Magnesium Level 1.7 Medications Medications Current Medications Carvedilol (Coreg) 3.125 mg BID PO Last administered on 10/18/18 08:31; Admin Dose 3.125 MG; Start 09/09/18 at 22:30 Spironolactone (Aldactone) 50 mg DAILY PO Last administered on 10/18/18 08:31; Admin Dose 50 MG; Start 09/13/18 at 18:00 Potassium Chloride (Klor-Con 20) 20 meq BID PO Last administered on 10/01/18 20:23; Admin Dose 20 MEQ; Start 09/15/18 at 21:00; Status Hold Oxycodone HCl (Oxycontin) 20 mg Q12 PO Last administered on 10/18/18 08:30; Admin Dose 20 MG; Start 09/15/18 at 21:00 Olopatadine HCl (Patanol 0.1% Oph) 1 drop BID BOTH EYES Last administered on 09:01; Admin Dose 1 DROP; Start 09/16/18 at 21:00 Loratadine (Claritin) 10 mg DAILY PO Last administered on 10/18/18 08:30; Admin Dose 10 MG; Start 09/17/18 at 09:00 Lidocaine (Lidoderm) 2 patch DAILY TD Last administered on 10/18/18 08:34; Admin Dose 2 PATCH; Start 09/26/18 at 17:30 Hydromorphone HCl (Dilaudid) 0.4 mg Q2H PRN IV .PAIN 6-10 Last administered on 10/02/18 09:21; Admin Dose 0.4 MG; Start 10/01/18 at 16:30 Nalbuphine HCl (Nubain) 10 mg Q4H PRN IV .PRURITUS; Start 10/01/18 at 16:30 Naloxone HCl (Narcan) 0.2 mg Q2M PRN IV .RESP RATE; Start 10/01/18 at 16:30 Simethicone (Mylicon) 80 mg TID PRN PO .GAS; Start 10/01/18 at 16:30 IV Flush (NS 3 ml) 3 ml per protocol IV ; Start 10/01/18 at 16:30 Ondansetron HCl 8 mg/Dextrose 54 ml @ 212 mls/hr Q6H PRN IV NAUSEA AND/OR V OMITING Last administered on 10/17/18 18:25; Admin Dose 212 MLS/HR; Start 10/03/18 at 11:30 Morphine Sulfate (morphine) 4 mg Q2 PRN IV SEVERE PAIN LEVEL 7-10 Last administered on 10/18/18 14:16; Admin Dose 4 MG; Start 10/03/18 at 18:30 Anastrozole (Arimidex) 1 mg DAILY PO Last administered on 10/18/18 08:33; Admin Dose 1 MG; Start 10/11/18 at 09:00 Furosemide (Lasix) 40 mg BID DIURETICS IV Last administered on 10/18/18 05:29; Admin Dose 40 MG; Start 10/14/18 at 18:00 Albuterol/ Ipratropium (Duoneb) 3 ml Q8H RESP THERAPY PRN HHN SHORTNESS OF BREATH Last administered on 10/17/18 19:58; Admin Dose 3 ML; Start 10/15/18 at 16:00 Miscellaneous Information 1 ea BID XX ; Start 10/16/18 at 22:00 Metolazone (Zaroxolyn) 2.5 mg ONCE ONCE PO ; Start 10/19/18 at 09:00; Stop 10/19/18 at 09:01 KAMILA TERESA October 18, 2018 15:16
[2018-10-18] MEDS ORDERED: HEPARIN (100 UNITS/ML) 5 ML SYG CATHETER ONE (17:30)
[2018-10-18 19:10] VITALS: BP 102/59; PULSE 105; RESP 20
--- NOTE | 2018-10-18 23:14 | CONS ---
Assessment/Plan Assessment/Plan Hospital Course (Demo Recall) METASTATIC BREAST CANCER WITH PRIMARY ADENOCARCINOMA IN the left breast. MULTIPLE BONY METS, PULMONARY METS, LIVER METS CHEMO ON HOLD PT HAS A VERY GOOD RESPONSE TO CHEMO AND AI CONT AI FOR NOW CT ABD FOR RESTAGING 08.27.18- noted , stable CT CHEST- STABLE/IMPROVING 1. Moderate bilateral pleural effusions with adjacent lung base consolidation/atelectasis. 2. Moderate pericardial effusion. 3. Decreased size of previously prominent mediastinal lymph nodes. Decreased size of sub centimeter axillary lymph nodes. 4. Stable nonspecific pulmonary nodules as described above. 5. Stable soft tissue nodule of the anterior left chest wall/breast. 6. Redemonstrated diffuse sclerotic metastatic osseous lesions with stable compression deformities of the thoracic spine. 7. Nodular contour of the liver with multiple hypoattenuating masses, grossly similar to prior exam. CYTOLOGY-NEG CARD - TO MONITOR FOR PERICARDIAL TAMPONADE, FOR NOW NO NEED TO DO PERICARDIOCENTESIS R HIP PAIN MRI R HIP- nondisplaced pathological fracture of the right femoral head merging with the known metastatic lesion. Interval development of synovitis and a large joint effusion as well as psoas bursitis. CT PELVIS- Subacute to chronic pathologic subcapital fracture of the right femoral neck. ORTHO - post-op s/p ORIF 10/02/18 CONT PAIN CONTROL, PT Leucopenia- post chemo NEUPOGEN- DC monitor closely post Neutropenia with occasional fever and chills. Anemia chronic disease SOB PLEURAL EFFUSIONS post thoracentesis cytology -NEG ON 09.18.18 AND 10.01.18 Fluid overload diuretic cardiology F-UP Congestive heart failure exacerbation, diastolic by most recent echo, acute on chronic.-neg trop x 3. Echo this admit EF 60/small pericardia effusion Hypotension, currently borderline-overall improved Anasarca. Severe pain in the interscapular and lumbar sacral area most probably metastatic lesion possible femoral fracture. pathologic fracture of T9 with 60% of loss of height. Obesity. Weight loss 60 pounds during the last 2 years PMS. Myopia. Anxiety disorder. Claustrophobia. Posttraumatic stress disorder. Pain in the left forearm with a history of fracture of ulna and radius. Tachycardia Hypoxemia at night marginal improved after 2 L of nasal cannula oxygen. Deconditioning Pain syndrome. Today the most painful zone is in the right hip area. X-ray did not show any fractures. Hyponatremia- resolved Hypoalbuminemia Right sided cp after catheter insertion and correction less discomfort. Decreased edema both lower extremities with hypotension-improving Swelling of the left forearm-persist. OK TO SNF WILL F-UP VK LE Consultation Date/Type/Reason Admit Date/Time Sep 09, 2018 at 14:53 Initial Consult Date 09/09/18 [facility] Provider: RUSS JEROME MD Date/Time of Note DATE: 10/18/18 TIME: 23:12 24 HR Interval Summary Free Text/Dictation all noted going to snf today Exam/Review of Systems Exam Vitals Vital Signs Date Temp Pulse Resp B/P (MAP) Pulse Ox O2 O2 Flow FiO2 Time Delivery Rate 10/18/18 99.0 105 20 102/59 92 Room Air 19:10 (73) 10/18/18 2.0 08:30 10/17/18 21 19:59 Intake and Output 10/17/18 10/17/18 10/18/18 1515:00 23:00 07:00 IntakeIntake Total 854 ml OutputOutput Total 800 ml 400 ml BalanceBalance -800 ml 454 ml Exam Review of Systems: CONSTITUTIONAL: No fevers, chills. PULMONARY: No sob CARDIOVASCULAR: No chest pain/palpitations GASTROINTESTINAL: No nausea/vomiting. GENITOURINARY: No hematuria/dysuria. MUSCULOSKELETAL: pain in leg PSYCHIATRIC: The patient denies depression. NEUROLOGIC: mild generalized weakness Constitutional: alert Psych: no complaints Head: normocephalic ENMT: mucosa pink and moist Neck: supple, jvd (9 cm water) Respiratory: diminished breath sounds (at bases/B) Cardiovascular: other (tachycardic) Gastrointestinal: soft, non-tender Musculoskeletal: muscle weakness (mild generalized) Extremities: pitting pedal edema (UE/LE) Results Result Diagram: 10/17/18 0655 10/18/18 0440 Results 24hrs Laboratory Tests Test 10/18/18 04:40 Sodium Level 138 Potassium Level 4.0 Chloride Level 100 Carbon Dioxide Level 32 H Anion Gap 6 Blood Urea Nitrogen 28 H Creatinine 0.83 Est Glomerular Filtrat Rate mL/min > 60 Glucose Level 130 Calcium Level 8.8 Phosphorus Level 5.4 H Magnesium Level 1.7 DES DUNAWAY MD October 18, 2018 23:14
--- NOTE | 2018-10-19 06:40 | DS ---
Date/Time of Note Date/Time of Note DATE: 10/19/18 TIME: 06:36 Discharge Summary Admission/Discharge Info Admit Date/Time Sep 09, 2018 at 14:53 Discharge Date/Time October 18, 2018 at 21:50 Discharge Diagnosis 1. Cancer of the left breast. Exact type at this time unknown.MULTIPLE BONY METS, PULMONARY METS 2. Severe pain in the interscapular and lumbar sacral area most probably metastatic lesion possible femoral fracture. pathologic fracture of T9 with 60% of loss of height. Neurosurgical f/u. 3. Obesity. 4. Weight loss 60 pounds during the last 2 years by diet 5. PMS. 6. Myopia. 7. Anemia chronic disease with a drop of her hematocrit to 27 and regaining to 30 without any measures. Latest results 28. Protonix was added. Today hematocrit is 26. Will recheck tomorrow 8. Anxiety disorder. Claustrophobia. Increase Ativan to 1 mg every 8 as needed at Lexapro 10 mg daily. 9. Posttraumatic stress disorder. 10. Pain in the left forearm with a history of fracture of ulna and radius. 11. Tachycardia 12. Hypoxemia at night marginal improved after 2 L of nasal cannula oxygen. 13. Deconditioning 14. 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 15. Pain syndrome. Today the most painful zone is in the right hip area. X- ray did not show any fractures. 16. Hyponatremia-persists; hypokalemia after massive diuresis. 17. Leucopenia-improved. 18. Neutropenia with occasional fever and chills. Last chemotherapy 5 days ago. 19. Hypoalbuminemia. 20.Right sided cp after catheter insertion and correction less discomfort. 21. Decreased edema both lower extremities with hypotension-improving 22.Swelling of the left forearm-persist. Now with erythema involving mainly the dorsum of the left upper extremity. 23.bilateral pleural effusions ; plan to perform tap tomorrow morning preferably from the left side done twice during this admission almost 1 L was evacuated to the first time and almost half a liter on 09/18/2018. 24. Systolic over diastolic congestive heart failure with a right more than left lower extremity swelling with no DVT in latest venous Doppler. 25. Pain syndrome Patient Condition: Guarded Hx of Present Illness Worsening of her shortness of breath. Right more than left lower extremity edema last 3 days getting more shortness of breath and having tachycardia being unable to lay down last night with heart rate reaching more than 110 bpm. After discussion with oncologist decided to transfer the patient to hospital for further evaluation and treatment. And asked the emergency room to perform a left thoracentesis as soon as possible with plan thoracentesis today to the [facility] side. The patient continues to be in the pain with the worsening of the edema of the left breast extremity with redness. She was unable to eat last 3-4 days she lost appetite become more depressed sleepless and depending on pain medications. Hospital Course S/P orif of right hip pathologic fracture with good result. Recurrent left thoracentesis with at least one liter of sero sanguinose fluid removal.Stil edematose, left fore arm and right leg more prominent.In pain moderately controlled. Home Meds Reported Medications Potassium Chloride* (Potassium Chloride*) 20 Meq Tablet.er, 20 MEQ PO DAILY, TAB.SA 09/09/18 Epoetin Cr (Procrit) 4,000 Unit/1 Ml Vial, 4000 UNIT IJ Q FRI, VIAL 7:00AM-7:00PM,HOLD IF HGB>10 09/09/18 Ondansetron Hcl* (Zofran*) 4 Mg Tab, 4 MG PO Q6H PRN for NAUSEA AND OR VOMITING, TAB 08/22/18 Pantoprazole* (Pantoprazole*) 40 Mg Tablet.dr, 40 MG PO AC BREAKFAST, TAB 08/22/18 Oxycodone Hcl* (Oxycontin*) 20 Mg Tab.er.12h, 20 MG PO Q12, TAB 08/22/18 Amlodipine Besylate* (Norvasc*) 5 Mg Tablet, 5 MG PO BID, TAB HOLD FOR SBP <110. 08/22/18 Polyethylene Glycol* (Miralax*) 17 Gm Powd.pack, 17 GM PO BID, #60 PACKET ON -12:00 TO 4:00PM 08/22/18 Magnesium Hydroxide* (Milk Of Magnesia*) 400 Mg/5 Ml Oral.susp, 30 ML PO DAILY, ML 08/22/18 Escitalopram Oxalate* (Lexapro*) 10 Mg Tablet, 10 MG PO DAILY, #30 TAB 08/22/18 Furosemide* (Furosemide*) 20 Mg Tablet, 20 MG PO DAILY, #60 TAB HOLD FOR SBP <110. 08/22/18 Docusate Sodium* (Colace*) 100 Mg Capsule, 200 MG PO BID, #60 CAP 08/22/18 Carvedilol* (Carvedilol*) 3.125 Mg Tablet, 3.125 MG PO BID, #60 TAB HOLD FOR SBP <110 OR [place] <60. GIVE WITH FOOD. 08/22/18 Lactose-Free Food (Boost High Protein) 237 Ml Liquid, 120 ML PO BID 08/22/18 Benazepril Hcl* (Benazepril Hcl*) 5 Mg Tablet, 5 MG PO BID, #60 TAB HOLD FOR SBP <110. 08/22/18 Anastrozole* (Arimidex*) 1 Mg Tablet, 1 MG PO DAILY, #30 TAB 08/22/18 Acetaminophen* (Acetaminophen*) 500 MG Extra Strength Tablet, 500 MG PO Q6H PRN for PAIN AND OR ELEVATED TEMP, TAB 08/22/18 Follow-up Plan To be seen in [facility] in 3 days by primary care physician in [address] Primary Care Provider MD JUSTUS Dodd VAGHARSHAK MD October 19, 2018 06:40
[2018-10-19] MEDS ORDERED: METOLAZONE 2.5 MG TAB PO ONE (09:00)
--- NOTE | 2018-10-21 09:33 | RADRPT ---
Vent Rate: 102 bpm RR Interval: 586 msec CA Interval: 216 msec QRS Duration: 81 msec QT Interval: 334 msec QTC Interval: 436 msec P-R-T [place]: 48 - -2 - 41 degrees Sinus tachycardia...rate> 99 Prolonged CA interval...CA >205, V-rate 91-120 Low voltage, extremity and precordial leads...extremity<0.5mV, precordial<1.0mV Consider anterior infarct...Q >30mS in V2-V5 Electronically Signed By: Barry Sorenson
== END 2018-10-18 21:50 | DRG 981 ==
LOC: E/R 13:05 → MS1 14:53 → UNDOADMIN 14:53 → EDBEDREQSVC 21:23 → TEL 09-15 15:23 → MS1 09-19 16:07
PROVIDERS: ADMIT Family Medicine; ATTEND Family Medicine
PROC: 0W9B3ZZ Drainage of Left Pleural Cavity, Percutaneous Approach (ICD-10-PCS; 2018-09-09)
PROC: 0W9B3ZZ Drainage of Left Pleural Cavity, Percutaneous Approach (ICD-10-PCS; 2018-09-10)
PROC: 0W9B3ZZ Drainage of Left Pleural Cavity, Percutaneous Approach (ICD-10-PCS; 2018-09-16)
PROC: 0W9B3ZX Drainage of Left Pleural Cavity, Percutaneous Approach, Diagnostic (ICD-10-PCS; 2018-09-18)
PROC: 0W9B3ZZ Drainage of Left Pleural Cavity, Percutaneous Approach (ICD-10-PCS; 2018-09-24)
PROC: 0W9B3ZX Drainage of Left Pleural Cavity, Percutaneous Approach, Diagnostic (ICD-10-PCS; 2018-10-01)
PROC: 0SRR0JA Replacement of Right Hip Joint, Femoral Surface with Synthetic Substitute, Uncemented, Open Approach (ICD-10-PCS; principal; 2018-10-01 13:00)
PROC: 30233N1 Transfusion of Nonautologous Red Blood Cells into Peripheral Vein, Percutaneous Approach (ICD-10-PCS; 2018-10-02)
PROC: 0W9B3ZZ Drainage of Left Pleural Cavity, Percutaneous Approach (ICD-10-PCS; 2018-10-14)
DX: C50.912 Malignant neoplasm of unspecified site of left female breast (principal); I50.33 Acute on chronic diastolic (congestive) heart failure; D61.810 Antineoplastic chemotherapy induced pancytopenia; J96.01 Acute respiratory failure with hypoxia; C78.00 Secondary malignant neoplasm of unspecified lung; C78.7 Secondary malignant neoplasm of liver and intrahepatic bile duct; C79.51 Secondary malignant neoplasm of bone; J90 Pleural effusion, not elsewhere classified; M84.55 Pathological fracture in neoplastic disease, pelvis and femur; E87.1 Hypo-osmolality and hyponatremia; I31.3 Pericardial effusion (noninflammatory); E87.3 Alkalosis; N17.9 Acute kidney failure, unspecified; D62 Acute posthemorrhagic anemia; D69.6 Thrombocytopenia, unspecified; I95.9 Hypotension, unspecified; E88.09 Other disorders of plasma-protein metabolism, not elsewhere classified; E87.70 Fluid overload, unspecified; E87.5 Hyperkalemia; D72.819 Decreased white blood cell count, unspecified; E66.9 Obesity, unspecified; Z68.27 Body mass index [BMI] 27.0-27.9, adult; D63.8 Anemia in other chronic diseases classified elsewhere; R00.0 Tachycardia, unspecified; I25.10 Atherosclerotic heart disease of native coronary artery without angina pectoris; R60.1 Generalized edema; E87.6 Hypokalemia; G89.4 Chronic pain syndrome; F41.9 Anxiety disorder, unspecified
CPT/HCPCS: 36415; 36430; 71045; 71046; 71260; 72147; 72149; 72192; 73510; 73530; 73620; 73721; 76604; 76942; 80048; 80053; 80061; 81001; 81003; 82042; 82043; 82150; 82962; 83540; 83605; 83735; 83880; 83935; 84100; 84132; 84133; 84155; 84300; 84439; 84443; 84484; 84560; 85025; 85378; 85610; 85730; 86850; 86900; 86901; 86920; 87081; 87086; 88104; 88107; 88304; 88305; 88311; 88341; 88342; 93005; 93308; 93971; 94640; 94664; 97110; 97116; 97162; 97165; 97530; 97535; C1776; J0690; J0692; J1100; J1170; J1642; J1650; J1885; J1940; J2060; J2250; J2270; J2274; J2405; J2765; J2795; J2916; J3370; J3475; J3480; J7030; J7040; J7050; P9016; P9045; P9047; Q9967

== ENCOUNTER 2018-10-21 14:47 | Inpatient (IN) | payer OTHER ==
[~2018-10-21] VITALS: Ht 154.9 cm; Wt 97.3 kg
[~2018-10-21 14:47] MED LIST changes: -AMIN30LI5 PO; +EPOE40009 IJ; -NALO12.5 PO; +POTA20TA96 PO
[2018-10-21] MEDS ORDERED: BISA10SU55 RC (16:29)
[2018-10-21] MEDS ORDERED: FUROSEMIDE 40 MG INJ IV ONE (16:30)
[2018-10-21] MEDS ORDERED: NA P230E RC (16:32)
[2018-10-21] MEDS ORDERED: FURO40TA4 PO (16:34)
[2018-10-21] MEDS ORDERED: IPRA3AMP29 INHALATION (16:35)
[2018-10-21] MEDS ORDERED: LIDO700A45 TP (16:36)
[2018-10-21] MEDS ORDERED: LORA10TA3 PO (16:37)
[2018-10-21] MEDS ORDERED: HYDR-3980 PO (16:38)
[2018-10-21] MEDS ORDERED: OLOP5DRO12 BOTH EYES (16:40)
[2018-10-21] MEDS ORDERED: SIME80TA60 PO (16:43)
[2018-10-21] MEDS ORDERED: SPIR50TA PO (16:44)
[2018-10-21] MEDS ORDERED: ACET325T33 PO (16:46)
[2018-10-21] MEDS ORDERED: TUBE5VIA3 ID (16:51)
[2018-10-21] MEDS ORDERED: SOD CHLORIDE 0.9% 100 ML ONE (17:33)
[2018-10-21] MEDS ORDERED: IOHEXOL 100 ML ONE (17:33)
--- NOTE | 2018-10-21 17:56 | ERD ---
ER Documentation Chief Complaint Chief Complaint BIB BLS AMBULANCE FOR EVAL OF SOB. HPI The patient is a 58-year-old female, presenting with acute dyspnea for the last 12 hours, was treated with albuterol nebulizer at 1 PM prior to arrival with some response. She had similar symptoms previously, denies fever, cough, neck pain, chest pain, abdominal pain, vomiting, dizzy, diarrhea. He does not smoke nor drink, [facility] Past medical history: Metastatic left breast cancer on chemotherapy and radiation therapy, history of CHF, hypertension, depression, chronic low back pain, GERD, anxiety, PTSD, chronic pain syndrome Past surgical history: Right hip, Port-A-Cath on the right chest ROS All systems reviewed and are negative except as per history of present illness. Medications Home Meds Reported Medications Tuberculin,Purif.prot.deriv. (Tubersol) 5 Tub Unit/0.1 Ml Vial, 0.1 ML ID, VIAL INJECT QHS EVERY 10 DAYS FOR PPD SCREENING FOR 11 DAYS READ IN 48 HOURS,IF NEGATIVE 2STEP IN 7 DAYS FROM FIRST DOSE. 10/21/18 Acetaminophen* (Tylenol*) 325 Mg Tablet, 650 MG PO Q4H PRN for PAIN LEVEL 1- 10/10, TAB 10/21/18 Spironolactone* (Aldactone*) 50 Mg Tablet, 50 MG PO DAILY, #30 TAB HOLD FOR SBP<110 10/21/18 Simethicone* (Mylicon*) 80 Mg Tab, 80 MG PO Q8H, TAB 10/21/18 Olopatadine* (Patanol* Ophth) 0.1% - 5 Ml Drops, 1 DROP BOTH EYES BID, EA 10/21/18 Hydrocodone/Acetaminophen ([place] 10-325 Tablet) 1 Each Tablet, 1 EACH PO Q4H, TAB 10/21/18 Loratadine* (Loratadine*) 10 Mg Tablet, 10 MG PO DAILY for FOR 3 MONTHS, #30 TAB 10/21/18 Lidocaine (Lidocaine) 1 Each Adh..patch, 1 EACH TP DAILY 10/21/18 Ipratropium-Albuterol (Ipratropium-Albuterol) 0.5-3 Mg/3 Ml Ampul.neb, 3 ML INHALATION Q8H, #30 VIAL 10/21/18 Furosemide* (Furosemide*) 40 Mg Tablet, 40 MG PO BID, TAB HOLD FOR SBP<110 10/21/18 Na Phos,M-B/Na Phos,Di-Ba (Fleet Enema Extra) Unknown Strength Enema, 1 APPLIC RC NEEDED for CONSTIPATION, ENEMA 10/21/18 Bisacodyl (Dulcolax) 10 Mg Supp.rect, 10 MG RC NEEDED, SUPP.RECT 10/21/18 Potassium Chloride* (Potassium Chloride*) 20 Meq Tablet.er, 20 MEQ PO DAILY, TAB.SA 09/09/18 Pantoprazole* (Pantoprazole*) 40 Mg Tablet.dr, 40 MG PO AC BREAKFAST, TAB 08/22/18 Oxycodone Hcl* (Oxycontin*) 20 Mg Tab.er.12h, 20 MG PO Q12, TAB 08/22/18 Amlodipine Besylate* (Norvasc*) 5 Mg Tablet, 5 MG PO DAILY, TAB HOLD FOR SBP <110. 08/22/18 Polyethylene Glycol* (Miralax*) 17 Gm Powd.pack, 17 GM PO DAILY, #60 PACKET 08/22/18 Magnesium Hydroxide* (Milk Of Magnesia*) 400 Mg/5 Ml Oral.susp, 30 ML PO DAILY, ML 08/22/18 Escitalopram Oxalate* (Lexapro*) 10 Mg Tablet, 10 MG PO DAILY, #30 TAB 08/22/18 Docusate Sodium* (Colace*) 100 Mg Capsule, 100 MG PO BID, #60 CAP 08/22/18 Carvedilol* (Carvedilol*) 3.125 Mg Tablet, 3.125 MG PO BID, #60 TAB HOLD FOR SBP <110 OR [place] <60. GIVE WITH FOOD. 08/22/18 Benazepril Hcl* (Benazepril Hcl*) 5 Mg Tablet, 5 MG PO DAILY, #60 TAB HOLD FOR SBP <110. 08/22/18 Anastrozole* (Arimidex*) 1 Mg Tablet, 1 MG PO DAILY, #30 TAB 08/22/18 Discontinued Reported Medications Epoetin Cr (Procrit) 4,000 Unit/1 Ml Vial, 4000 UNIT IJ Q FRI, VIAL 7:00AM-7:00PM,HOLD IF HGB>10 09/09/18 Ondansetron Hcl* (Zofran*) 4 Mg Tab, 4 MG PO Q6H PRN for NAUSEA AND OR VOMITING, TAB 08/22/18 Furosemide* (Furosemide*) 20 Mg Tablet, 20 MG PO DAILY, #60 TAB HOLD FOR SBP <110. 08/22/18 Lactose-Free Food (Boost High Protein) 237 Ml Liquid, 120 ML PO BID 08/22/18 Acetaminophen* (Acetaminophen*) 500 MG Extra Strength Tablet, 500 MG PO Q6H PRN for PAIN AND OR ELEVATED TEMP, TAB 08/22/18 Allergies Allergies: Coded Allergies: No Known Allergy (Unverified , 10/21/18) PMhx/Soc History of Surgery: No Anesthesia Reaction: No Hx 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 Disorder: No Hx Respiratory Disorders: Yes (PNEUMONIA, METASTASIS TO LUNGS) Hx Cardiac Disorders: No Hx Psychiatric Problems: No Hx Miscellaneous Medical Probl: No Hx Alcohol Use: No Hx Substance Use: No Hx Tobacco Use: No Physical Exam Vitals Vital Signs Date Temp Pulse Resp B/P (MAP) Pulse Ox O2 O2 Flow FiO2 Time Delivery Rate 10/21/18 Nasal 15:47 Cannula 10/21/18 Nasal 15:47 Cannula 10/21/18 96.9 84 20 135/94 96 15:20 (108) Physical Exam Const: No acute distress. Head: Atraumatic. Eyes: Normal Conjunctiva. ENT: Normal External Ears, Nose and Mouth. Neck: Full range of motion. No meningismus. Resp: Bibasilar crackle Cardio: Regular rate and rhythm. Abd: Soft, non distended, normal bowel sounds, non tender. Skin: No petechiae or rashes. Back: No midline or flank tenderness. Ext: Bilateral leg edema, mild bilateral calf tenderness Neur: Awake and alert. No focal deficit Psych: Normal Mood and Affect. Result Diagram: 10/21/18 1531 10/21/18 1532 Results 24 hrs Laboratory Tests Test 10/21/18 15:31 10/21/18 15:32 White Blood Count 5.5 10^3/ul Red Blood Count 3.58 10^6/ul Hemoglobin 11.4 g/dl Hematocrit 35.2 % Mean Corpuscular Volume 98.3 fl Mean Corpuscular Hemoglobin 31.8 pg Mean Corpuscular Hemoglobin Concent 32.4 g/dl Red Cell Distribution Width 16.9 % Platelet Count 224 10^3/UL Mean Platelet Volume 8.6 fl Immature Granulocytes % 0.200 % Neutrophils % 70.2 % Lymphocytes % 18.3 % Monocytes % 9.7 % Eosinophils % 0.9 % Basophils % 0.7 % Nucleated Red Blood Cells % 0.0 /100WBC Immature Granulocytes # 0.010 10^3/ul Neutrophils # 3.8 10^3/ul Lymphocytes # 1.0 10^3/ul Monocytes # 0.5 10^3/ul Eosinophils # 0.1 10^3/ul Basophils # 0.0 10^3/ul Nucleated Red Blood Cells # 0.0 10^3/ul Prothrombin Time 13.4 Sec Prothrombin Time Ratio 1.0 INR International Normalized Ratio 1.01 Activated Partial Thromboplast Time 30.3 Sec Sodium Level 139 mmol/L Potassium Level 3.5 mmol/L Chloride Level 98 mmol/L Carbon Dioxide Level 34 mmol/L Anion Gap 7 Blood Urea Nitrogen 13 mg/dl Creatinine 0.61 mg/dl Est Glomerular Filtrat Rate mL/min > 60 mL/min Glucose Level 108 mg/dl POC Venous Lactate 1.1 mmol/L Calcium Level 9.2 mg/dl Total Bilirubin 0.6 mg/dl Direct Bilirubin 0.00 mg/dl Indirect Bilirubin 0.6 mg/dl Aspartate Amino Transf (AST/SGOT) 30 IU/L Alanine Aminotransferase (ALT/SGPT) 26 IU/L Alkaline Phosphatase 74 IU/L Troponin I < 0.012 ng/ml B-Type Natriuretic Peptide 1150 PG/ML Total Protein 6.2 g/dl Albumin 3.5 g/dl Globulin 2.70 g/dl Albumin/Globulin Ratio 1.29 Current Medications Medications Dose Sig/Diana Start Time Status Last (Trade) Ordered Route PRN Stop Time Admin Dose Reason Admin Furosemide 40 mg ONCE ONCE 10/21/18 DC 10/21/18 (Lasix) IV 16:30 10/21/18 16:44 16:31 IV Flush 10 ml STK-MED 10/21/18 DC (NS 10 ml) ONCE .ROUTE 17:33 10/21/18 17:34 Sodium 100 ml @ STK-MED 10/21/18 DC Chloride ONCE .ROUTE 17:33 10/21/18 17:34 Iohexol 100 ml @ ud STK-MED 10/21/18 DC ONCE .ROUTE 17:33 10/21/18 17:34 Procedures/[address] [address] Radiology Main Line: [phone] DIAGNOSTIC IMAGING REPORT Patient: LEANA VILLEDA : 1960 Age: 58 Sex: F MR #: [id number] DOS: 10/21/18 1505 Ordering MD: DOE OROZCO MD Location: E/R Room/Bed: PROCEDURE: XR Chest. CLINICAL INDICATION: Sepsis. TECHNIQUE: Chest, 1 view. COMPARISON: 10/14/2018. FINDINGS: Right Port-A-Cath with tip in the superior right atrium. The cardiomediastinal silhouette demonstrates enlargement of the cardiac silhouette. There are aortic calcifications. Increase in bilateral perihilar and bibasilar opacities with small bilateral pleural effusions. No definite pneumothorax is seen. No acute osseous abnormality. IMPRESSION: Increase in bilateral perihilar and bibasilar opacities with small bilateral pleural effusions, represent increasing edema versus pneumonia. RPTAT: AAEE Physician Malcom Date Time Electronically viewed and signed by Physician Malcom on 10/21/2018 16:02 PH/ CC: DOE OROZCO MD [id number] EKG: Read by emergency physician Rate/Rhythm: Normal Sinus Rhythm 87 beats/min QRS, ST, T-waves: No ST elevation, no T inversion, low voltage, septal Q's Impression: Abnormal EKG Bilateral lower extremity ultrasound/CT angiogram of the chest/UA: Pending MEDICAL MAKING DECISION: The patient is 58-year-old female, presenting with acute CHF exacerbation, was treated with Lasix 40 mg IV with good response The differential diagnoses considered include but are not limited to asthma, COPD, pneumonia, pulmonary embolus, pleural effusion, congestive heart failure. Critical Care: Time: 35 minutes excluding all billable procedures. Treatments/Evaluations: Close monitoring and treatment of unstable vital signs, cardiorespiratory, and neurologic status, while maintaining tight balance of fluid, respiratory, and cardiac interventions. Departure Diagnosis: Primary Impression: CHF (congestive heart failure) Additional Impression: Anemia Condition: Stable Comments I discussed the findings with the patient. I discussed the patient with Dr Zaman at 5:30 PM, who was made aware of the lab, the treatment, the patient condition, pending studies. The patient is admitted to [facility] Disclaimer: Inadvertent spelling and grammatical errors are likely due to EHR/dictation software use and do not reflect on the overall quality of patient care. Also, please note that the electronic time recorded on this note does not necessarily reflect the actual time of the patient encounter. DOE OROZCO MD October 21, 2018 17:56
--- NOTE | 2018-10-21 21:43 | CONS ---
Assessment/Plan Assessment/Plan Hospital Course (Demo Recall) METASTATIC BREAST CANCER WITH PRIMARY ADENOCARCINOMA IN the left breast. MULTIPLE BONY METS, PULMONARY METS, LIVER METS CHEMO ON HOLD PT HAS A VERY GOOD RESPONSE TO CHEMO AND AI CONT AI FOR NOW CT ABD FOR RESTAGING 08.27.18- noted , stable Leukopenia- post chemo, IMPROVING post NEUPOGEN monitor closely post Neutropenia with occasional fever and chills. - resolved Anemia chronic disease SOB PLEURAL EFFUSIONS thoracentesis Fluid overload diuretic cardiology consult Severe pain in the interscapular and lumbar sacral area most probably metastatic lesion possible femoral fracture. pathologic fracture of T9 with 60% of loss of height. Obesity. Weight loss 60 pounds during the last 2 years PMS. Myopia. Anxiety disorder. Claustrophobia. Posttraumatic stress disorder. Pain in the left forearm with a history of fracture of ulna and radius. Tachycardia Hypoxemia at night marginal improved after 2 L of nasal cannula oxygen. Deconditioning Pain syndrome. Today the most painful zone is in the right hip area. X-ray did not show any fractures. Hyponatremia- resolved Hypoalbuminemia Right sided cp after catheter insertion and correction less discomfort. Decreased edema both lower extremities with hypotension-improving Swelling of the left forearm-persist. Consultation Date/Type/Reason Admit Date/Time Date of Consultation: October 21, 2018 Type of Consult [facility] Reason for Consultation BREAST CANCER Requesting Provider: RUSS JEROME MD Date/Time of Note DATE: 10/21/18 TIME: 21:43 Hx of Present Illness The patient is a 58-year-old female, presenting with acute dyspnea for the last 12 hours, was treated with albuterol nebulizer at 1 PM prior to arrival with some response. She had similar symptoms previously, denies fever, cough, neck pain, chest pain, abdominal pain, vomiting, dizzy, diarrhea. He does not smoke nor drink, on O2 as needed at the [facility] Past medical history: Metastatic left breast cancer on chemotherapy and radiation therapy, history of CHF, hypertension, depression, chronic low back pain, GERD, anxiety, PTSD, chronic pain syndrome Past surgical history: Right hip, Port-A-Cath on the right chest ROS All systems reviewed and are negative except as per history of present illness. Medications Home Meds Reported Medications Tuberculin,Purif.prot.deriv. (Tubersol) 5 Tub Unit/0.1 Ml Vial, 0.1 ML ID, VIAL INJECT QHS EVERY 10 DAYS FOR PPD SCREENING FOR 11 DAYS READ IN 48 HOURS,IF NEGATIVE 2STEP IN 7 DAYS FROM FIRST DOSE. 10/21/18 Acetaminophen* (Tylenol*) 325 Mg Tablet, 650 MG PO Q4H PRN for PAIN LEVEL 1- 03/27, TAB 10/21/18 Spironolactone* (Aldactone*) 50 Mg Tablet, 50 MG PO DAILY, #30 TAB HOLD FOR SBP<110 10/21/18 Simethicone* (Mylicon*) 80 Mg Tab, 80 MG PO Q8H, TAB 10/21/18 Olopatadine* (Patanol* Ophth) 0.1% - 5 Ml Drops, 1 DROP BOTH EYES BID, EA 10/21/18 Hydrocodone/Acetaminophen ([place] 10-325 Tablet) 1 Each Tablet, 1 EACH PO Q4H, TAB 10/21/18 Loratadine* (Loratadine*) 10 Mg Tablet, 10 MG PO DAILY for FOR 3 MONTHS, #30 TAB 10/21/18 Lidocaine (Lidocaine) 1 Each Adh..patch, 1 EACH TP DAILY 10/21/18 Ipratropium-Albuterol (Ipratropium-Albuterol) 0.5-3 Mg/3 Ml Ampul.neb, 3 ML INHALATION Q8H, #30 VIAL 10/21/18 Furosemide* (Furosemide*) 40 Mg Tablet, 40 MG PO BID, TAB HOLD FOR SBP<110 10/21/18 Na Phos,M-B/Na Phos,Di-Ba (Fleet Enema Extra) Unknown Strength Enema, 1 APPLIC RC NEEDED for CONSTIPATION, ENEMA 10/21/18 Bisacodyl (Dulcolax) 10 Mg Supp.rect, 10 MG RC NEEDED, SUPP.RECT 10/21/18 Potassium Chloride* (Potassium Chloride*) 20 Meq Tablet.er, 20 MEQ PO DAILY, TAB.SA 09/09/18 Pantoprazole* (Pantoprazole*) 40 Mg Tablet.dr, 40 MG PO AC BREAKFAST, TAB 08/22/18 Oxycodone Hcl* (Oxycontin*) 20 Mg Tab.er.12h, 20 MG PO Q12, TAB 08/22/18 Amlodipine Besylate* (Norvasc*) 5 Mg Tablet, 5 MG PO DAILY, TAB HOLD FOR SBP <110. 3/7/19 Polyethylene Glycol* (Miralax*) 17 Gm Powd.pack, 17 GM PO DAILY, #60 PACKET 08/22/18 Magnesium Hydroxide* (Milk Of Magnesia*) 400 Mg/5 Ml Oral.susp, 30 ML PO DAILY, ML 08/22/18 Escitalopram Oxalate* (Lexapro*) 10 Mg Tablet, 10 MG PO DAILY, #30 TAB 08/22/18 Docusate Sodium* (Colace*) 100 Mg Capsule, 100 MG PO BID, #60 CAP 08/22/18 Carvedilol* (Carvedilol*) 3.125 Mg Tablet, 3.125 MG PO BID, #60 TAB HOLD FOR SBP <110 OR IN <60. GIVE WITH FOOD. 08/22/18 Benazepril Hcl* (Benazepril Hcl*) 5 Mg Tablet, 5 MG PO DAILY, #60 TAB HOLD FOR SBP <110. 08/22/18 Anastrozole* (Arimidex*) 1 Mg Tablet, 1 MG PO DAILY, #30 TAB 08/22/18 Discontinued Reported Medications Epoetin Cr (Procrit) 4,000 Unit/1 Ml Vial, 4000 UNIT IJ Q FRI, VIAL 7:00AM-7:00PM,HOLD IF HGB>10 09/09/18 Ondansetron Hcl* (Zofran*) 4 Mg Tab, 4 MG PO Q6H PRN for NAUSEA AND OR VOMITING, TAB 08/22/18 Furosemide* (Furosemide*) 20 Mg Tablet, 20 MG PO DAILY, #60 TAB HOLD FOR SBP <110. 08/22/18 Lactose-Free Food (Boost High Protein) 237 Ml Liquid, 120 ML PO BID 08/22/18 Acetaminophen* (Acetaminophen*) 500 MG Extra Strength Tablet, 500 MG PO Q6H PRN for PAIN AND OR ELEVATED TEMP, TAB 08/22/18 Allergies Allergies: Coded Allergies: No Known Allergy (Unverified , 10/21/18) PMhx/Soc History of Surgery: No Anesthesia Reaction: No Hx 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 Disorder: No Hx Respiratory Disorders: Yes (PNEUMONIA, METASTASIS TO LUNGS) Hx Cardiac Disorders: No Hx Psychiatric Problems: No Hx Miscellaneous Medical Probl: No Hx Alcohol Use: No Hx Substance Use: No Hx Tobacco Use: No Past Medical History Home Meds Reported Medications Tuberculin,Purif.prot.deriv. (Tubersol) 5 Tub Unit/0.1 Ml Vial, 0.1 ML ID, VIAL INJECT QHS EVERY 10 DAYS FOR PPD SCREENING FOR 11 DAYS READ IN 48 HOURS,IF NEGATIVE 2STEP IN 7 DAYS FROM FIRST DOSE. 10/21/18 Acetaminophen* (Tylenol*) 325 Mg Tablet, 650 MG PO Q4H PRN for PAIN LEVEL 1- 03/27, TAB 10/21/18 Spironolactone* (Aldactone*) 50 Mg Tablet, 50 MG PO DAILY, #30 TAB HOLD FOR SBP<110 10/21/18 Simethicone* (Mylicon*) 80 Mg Tab, 80 MG PO Q8H, TAB 10/21/18 Olopatadine* (Patanol* Ophth) 0.1% - 5 Ml Drops, 1 DROP BOTH EYES BID, EA 10/21/18 Hydrocodone/Acetaminophen ([place] 10-325 Tablet) 1 Each Tablet, 1 EACH PO Q4H, TAB 10/21/18 Loratadine* (Loratadine*) 10 Mg Tablet, 10 MG PO DAILY for FOR 3 MONTHS, #30 TAB 10/21/18 Lidocaine (Lidocaine) 1 Each Adh..patch, 1 EACH TP DAILY 10/21/18 Ipratropium-Albuterol (Ipratropium-Albuterol) 0.5-3 Mg/3 Ml Ampul.neb, 3 ML INHALATION Q8H, #30 VIAL 10/21/18 Furosemide* (Furosemide*) 40 Mg Tablet, 40 MG PO BID, TAB HOLD FOR SBP<110 10/21/18 Na Phos,M-B/Na Phos,Di-Ba (Fleet Enema Extra) Unknown Strength Enema, 1 APPLIC RC NEEDED for CONSTIPATION, ENEMA 10/21/18 Bisacodyl (Dulcolax) 10 Mg Supp.rect, 10 MG RC NEEDED, SUPP.RECT 10/21/18 Potassium Chloride* (Potassium Chloride*) 20 Meq Tablet.er, 20 MEQ PO DAILY, TAB.SA 09/09/18 Pantoprazole* (Pantoprazole*) 40 Mg Tablet.dr, 40 MG PO AC BREAKFAST, TAB 08/22/18 Oxycodone Hcl* (Oxycontin*) 20 Mg Tab.er.12h, 20 MG PO Q12, TAB 08/22/18 Amlodipine Besylate* (Norvasc*) 5 Mg Tablet, 5 MG PO DAILY, TAB HOLD FOR SBP <110. 08/22/18 Polyethylene Glycol* (Miralax*) 17 Gm Powd.pack, 17 GM PO DAILY, #60 PACKET 08/22/18 Magnesium Hydroxide* (Milk Of Magnesia*) 400 Mg/5 Ml Oral.susp, 30 ML PO DAILY, ML 08/22/18 Escitalopram Oxalate* (Lexapro*) 10 Mg Tablet, 10 MG PO DAILY, #30 TAB 08/22/18 Docusate Sodium* (Colace*) 100 Mg Capsule, 100 MG PO BID, #60 CAP 08/22/18 Carvedilol* (Carvedilol*) 3.125 Mg Tablet, 3.125 MG PO BID, #60 TAB HOLD FOR SBP <110 OR IN <60. GIVE WITH FOOD. 08/22/18 Benazepril Hcl* (Benazepril Hcl*) 5 Mg Tablet, 5 MG PO DAILY, #60 TAB HOLD FOR SBP <110. 08/22/18 Anastrozole* (Arimidex*) 1 Mg Tablet, 1 MG PO DAILY, #30 TAB 08/22/18 Discontinued Reported Medications Epoetin Cr (Procrit) 4,000 Unit/1 Ml Vial, 4000 UNIT IJ Q FRI, VIAL 7:00AM-7:00PM,HOLD IF HGB>10 09/09/18 Ondansetron Hcl* (Zofran*) 4 Mg Tab, 4 MG PO Q6H PRN for NAUSEA AND OR VOMITING, TAB 08/22/18 Furosemide* (Furosemide*) 20 Mg Tablet, 20 MG PO DAILY, #60 TAB HOLD FOR SBP <110. 08/22/18 Lactose-Free Food (Boost High Protein) 237 Ml Liquid, 120 ML PO BID 08/22/18 Acetaminophen* (Acetaminophen*) 500 MG Extra Strength Tablet, 500 MG PO Q6H PRN for PAIN AND OR ELEVATED TEMP, TAB 08/22/18 Allergies: Coded Allergies: No Known Drug Allergies (Verified Allergy, Unknown, 10/21/18) Past Surgical History Past Surgical Hx: no surgical history Social History Smoking Status: Never smoker Exam/Review of Systems Exam Vitals Vital Signs Date Temp Pulse Resp B/P (MAP) Pulse Ox O2 O2 Flow FiO2 Time Delivery Rate 10/21/18 93 20 134/84 97 Nasal 2.0 18:30 (101) Cannula 10/21/18 96.9 15:20 Exam Const: No acute distress. Head: Atraumatic. Eyes: Normal Conjunctiva. ENT: Normal External Ears, Nose and Mouth. Neck: Full range of motion. No meningismus. Resp: Bibasilar crackle Cardio: Regular rate and rhythm. Abd: Soft, non distended, normal bowel sounds, non tender. Skin: No petechiae or rashes. Back: No midline or flank tenderness. Ext: Bilateral leg edema, mild bilateral calf tenderness Neur: Awake and alert. No focal deficit Psych: Normal Mood and Affect. Results Result Diagram: 10/21/18 1531 10/21/18 1532 Results 24hrs Laboratory Tests Test 10/21/18 15:31 10/21/18 15:32 10/21/18 19:07 White Blood Count 5.5 # Red Blood Count 3.58 #L Hemoglobin 11.4 #L Hematocrit 35.2 #L Mean Corpuscular Volume 98.3 Mean Corpuscular Hemoglobin 31.8 Mean Corpuscular Hemoglobin Concent 32.4 Red Cell Distribution Width 16.9 H Platelet Count 224 Mean Platelet Volume 8.6 Immature Granulocytes % 0.200 Neutrophils % 70.2 Lymphocytes % 18.3 Monocytes % 9.7 Eosinophils % 0.9 Basophils % 0.7 Nucleated Red Blood Cells % 0.0 Immature Granulocytes # 0.010 Neutrophils # 3.8 Lymphocytes # 1.0 Monocytes # 0.5 Eosinophils # 0.1 Basophils # 0.0 Nucleated Red Blood Cells # 0.0 Prothrombin Time 13.4 Prothrombin Time Ratio 1.0 INR International Normalized Ratio 1.01 Activated Partial Thromboplast Time 30.3 Sodium Level 139 Potassium Level 3.5 Chloride Level 98 Carbon Dioxide Level 34 H Anion Gap 7 Blood Urea Nitrogen 13 Creatinine 0.61 Est Glomerular Filtrat Rate mL/min > 60 Glucose Level 108 POC Venous Lactate 1.1 Calcium Level 9.2 Total Bilirubin 0.6 Direct Bilirubin 0.00 Indirect Bilirubin 0.6 Aspartate Amino Transf (AST/SGOT) 30 Alanine Aminotransferase (ALT/SGPT) 26 Alkaline Phosphatase 74 Troponin I < 0.012 B-Type Natriuretic Peptide 1150 H Total Protein 6.2 Albumin 3.5 Globulin 2.70 Albumin/Globulin Ratio 1.29 Lactic Acid Level 1.2 DES DUNAWAY MD October 21, 2018 21:43
[2018-10-21 22:15] VITALS: BP 142/79; PULSE 95; RESP 22
[2018-10-21 22:25] VITALS: PULSE 100
[2018-10-21 22:30] VITALS: Ht 154.9 cm; Wt 97.3 kg
--- NOTE | 2018-10-21 22:49 | HP ---
Date/Time of Note Date/Time of Note DATE: 10/21/18 TIME: 22:41 Assessment/Plan VTE Prophylaxis SCD applied (from Nsg): Yes SCD contraindicated: other (on.) Pharmacological prophylaxis: LMWH Lines/Catheters IV Catheter Type (from Nrsg): [place]ine [employer] Central line still needed: No Urinary Cath still in place: Yes Reason Cath still needed: urinary retention Assessment/Plan Assessment/Plan 1. PRIMARY ADENOCARCINOMA of the left breast. MULTIPLE BONY METS, PULMONARY METS;LIVER METS CHEMO ON HOLD; PT HAS A VERY GOOD RESPONSE TO CHEMO AND AI 2. Severe pain in the interscapular and lumbar sacral area most probably metastatic lesion possible femoral fracture. pathologic fracture of T9 with 60% of loss of height. Neurosurgical f/u. 3. Obesity. 4. Weight loss 60 pounds during the last 2 years by diet 5. PMS. 6. Myopia. 7. Anemia chronic disease with a drop of her hematocrit to 27; Latest results 28. Will recheck tomorrow;Leukopenia.Thrombocytopenia; 8. Anxiety disorder. Claustrophobia. Increase Ativan to 1 mg every 8 as needed at Lexapro 10 mg daily. 9. Posttraumatic stress disorder. 10. Pain in the left forearm with a history of fracture of ulna and radius. 11. Tachycardia 12. Hypoxemia at night marginal improved after 2 L of nasal cannula oxygen. 13. Deconditioning 14. 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 MRI: 09/28/18:diffuse osseous metastatic disease with multiple pathologic compression fractures at least involving the T4, T5, T7, T9 and T11 levels. There is likely mild cortical breakthrough at several levels resulting in mild central canal narrowing. No davida ss evidence of cord compression is seen.. 15. Pain syndrome. Today the most painful zone is in the right hip area. 16. Hyponatremia-corrected; hypokalemia now hyperkalemic 5.2 hold potassium p.o. today and hold Aldactone today.Recheck and sodium chloride daily with the dose to 4 mg today 17. Leucopenia-improved. 18. Neutropenia with occasional fever and chills. Last chemotherapy 5 days ago. 19. Hypoalbuminemia. 20.Right sided cp after catheter insertion and correction less discomfort. 21. Decreased edema both lower extremities with [id number] with Pleural and Pericardial effusion. 22. pain syndrome 23.bilateral pleural effusions ; s/p left thoracentesis, During the procedure the probe of the u/s was placed to the right side of the chest which showed only minimal amount of liquid on the right pleural cavity. 24. Systolic over diastolic congestive heart failure with a right more than left lower extremity swelling with no DVT in latest venous Doppler. 25. Swelling of the left forearm-persist. Cellulitis of the left forearm with increased edema anteriorly.-Today it is less edematous 26. Pathologic fracture of the right hip;s/p hemiarthroplasty of right hip . Result Diagram: 10/21/18 1531 10/21/18 1532 Results 24hrs Laboratory Tests Test 10/21/18 15:31 10/21/18 15:32 10/21/18 19:07 White Blood Count 5.5 # Red Blood Count 3.58 #L Hemoglobin 11.4 #L Hematocrit 35.2 #L Mean Corpuscular Volume 98.3 Mean Corpuscular Hemoglobin 31.8 Mean Corpuscular Hemoglobin Concent 32.4 Red Cell Distribution Width 16.9 H Platelet Count 224 Mean Platelet Volume 8.6 Immature Granulocytes % 0.200 Neutrophils % 70.2 Lymphocytes % 18.3 Monocytes % 9.7 Eosinophils % 0.9 Basophils % 0.7 Nucleated Red Blood Cells % 0.0 Immature Granulocytes # 0.010 Neutrophils # 3.8 Lymphocytes # 1.0 Monocytes # 0.5 Eosinophils # 0.1 Basophils # 0.0 Nucleated Red Blood Cells # 0.0 Prothrombin Time 13.4 Prothrombin Time Ratio 1.0 INR International Normalized Ratio 1.01 Activated Partial Thromboplast Time 30.3 Sodium Level 139 Potassium Level 3.5 Chloride Level 98 Carbon Dioxide Level 34 H Anion Gap 7 Blood Urea Nitrogen 13 Creatinine 0.61 Est Glomerular Filtrat Rate mL/min > 60 Glucose Level 108 POC Venous Lactate 1.1 Calcium Level 9.2 Total Bilirubin 0.6 Direct Bilirubin 0.00 Indirect Bilirubin 0.6 Aspartate Amino Transf (AST/SGOT) 30 Alanine Aminotransferase (ALT/SGPT) 26 Alkaline Phosphatase 74 Troponin I < 0.012 B-Type Natriuretic Peptide 1150 H Total Protein 6.2 Albumin 3.5 Globulin 2.70 Albumin/Globulin Ratio 1.29 Lactic Acid Level 1.2 HPI/ROS Admit Date/Time Admit Date/Time ROS Constitutional: improved, chills Eyes: discharge, redness; No no complaints, No pain, No visual change, No other ENT: pain, congestion, dysphagia, sore throat; No no complaints, No bleeding, No discharge, No other Respiratory: cough, pleuritic pain, shortness of breath; No no complaints, No pain, No sputum, No wheezing, No other Cardiovascular: edema, lightheadedness, orthopenea, palpitations, paroxysmal nocturnal dyspnea; No no complaints, No chest pain, No other Gastrointestinal: pain, constipation, decreased appetite, flatus, nausea; No no complaints, No blood, No diarrhea, No passing stool, No vomiting, No other Genitourinary: bleeding, dysuria, discharge; No no complaints, No flank pain, No hematuria, No other Musculoskeletal: back pain, bone/joint pain, neck pain Skin: bruising, erythema, pruritis, rash, skin lesions; No no complaints, No laceration, No other Neurologic: dizziness, headache Endocrine: No no complaints, No polyuria, No polydypsia, No dry skin, No temp intolerance, No weight change, No other Lymphatic: No no complaints, No adenopathy, No tender nodes, No lymphadema, No other Psychological: anxiety; No no complaints, No nl mood/affect, No confusion, No depression, No suicidal, No other Immunologic: No no complaints, No immunodeficiency, No pruritis, No rhinitis, No urticaria, No other PMH/Family/Social Past Medical History Medical History: angina, congestive heart failure, coronary artery disease, gallstones, GERD, GI bleed, hypertension, irritable bowel syndrome, pancreatitis, peptic ulcer disease Coded Allergies: No Known Drug Allergies (Verified Allergy, Unknown, 10/21/18) Past Surgical History Past Surgical Hx: no surgical history Family History Significant Family History: no pertinent family hx Social History Alcohol Use: none Smoking Status: Never smoker Drug Use: none Exam/Review of Systems Vital Signs Vitals Vital Signs Date Temp Pulse Resp B/P (MAP) Pulse Ox O2 O2 Flow FiO2 Time Delivery Rate 10/21/18 96 16 131/84 98 Room Air 21:50 (100) 10/21/18 2.0 18:30 10/21/18 96.9 15:20 Exam Constitutional: alert, oriented, distress, frail; No well developed, No non-verbal, No other Psych: anxiety, confusion; No no complaints, No nl mood/affect, No depression, No suicidal, No other Head: normocephalic, atraumatic; No lacerations, No hematomas, No other Eyes: No nl conjunctiva, No EOMI, No nl lids, No nl sclera, No PERRL, No icteric, No fundi, disc, No other ENMT: No nl external ears & nose, No nl lips & teeth, No nl nasal mucosa & septum, No mucosa pink and moist, No intubated, No tympanic membranes, No other Neck: jvd, bruits, thyromegaly, nuchal rigidity; No supple, No non-tender, No masses, No other Respiratory: clear to auscultation; No normal air movement, No congested cough, No crackles/rales, No diminished breath sounds, No intercostal retraction, No labored breathing, No respirations, No tactile fremitus, No wheezing, No other Cardiovascular: bruits, edema, jugular venous distention (JVD), systolic murmur; No regular rate and rhythm, No nl pulses, No diastolic murmur, No gallop, No irregular rhythm, No murmurs/extra sounds, No rub, No S3, No S4, No other Gastrointestinal: soft, nl liver, spleen, ascites, bowel sounds, distended; No non-tender, No firm, No hepatomegaly, No mass, No rebound or guarding, No splenomegaly, No surgical scars, No tender, No other Musculoskeletal: joint tenderness, muscle tone, muscle weakness; No nl extremities to inspection, No nl gait and stance, No range of motion, No spine non-tender, No swelling, No other Extremities: No normal pulses, No calf tenderness, No cyanosis, No clubbing, No edema, No pitting pedal edema, No palpable cord, No tenderness, No other 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: ENGINEERING COORDINATOR 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, confused, lethargic, numbness, unresponsive; No nl mental status, No nl speech, No nl strength, No DTR's symmetric, No focal weakness, No reflexes, No other Skin: nl turgor Lymph: No nl lymph nodes, No enlarged, No nontender, No other RUSS JEROME MD October 21, 2018 22:49
[2018-10-22] VITALS (11 sets, daily range): BP systolic 82–138; BP diastolic 50–84; PULSE 73–105; RESP 18–20
[2018-10-22] MEDS ORDERED: ENALAPRIL 2.5 MG TAB PO ONE (00:30)
[2018-10-22] MEDS: ZOLPIDEM 5 MG TAB PO PRN ×2 (01:29→21:20)
[2018-10-22] MEDS: BISACODYL 10 MG SUPP PR SCH ×4 (06:00→22:00)
[2018-10-22] MEDS: FUROSEMIDE 40 MG INJ IV SCH ×2 (06:07→17:19)
[2018-10-22] MEDS: PANTOPRAZOLE (EC) 40 MG TAB PO SCH (07:25)
[2018-10-22] MEDS: ESCITALOPRAM 10 MG TAB PO SCH (08:11)
[2018-10-22] MEDS: AMLODIPINE 5 MG TAB PO SCH (08:11)
[2018-10-22] MEDS: SPIRONOLACTONE 50 MG TAB PO SCH (08:12)
[2018-10-22] MEDS: BENAZEPRIL 5 MG TAB PO SCH (08:12)
[2018-10-22] MEDS: LORATADINE 10 MG TAB PO SCH (08:12)
[2018-10-22] MEDS: DOCUSATE SODIUM 100 MG CAP PO SCH ×2 (08:13→21:00)
[2018-10-22] MEDS: oxyCODONE (CR) 20 MG TAB [oxyCONTIN] PO SCH ×2 (08:13→21:19)
[2018-10-22] MEDS: POLYETHYLENE GLYCOL 17 GM PACKET PO SCH (08:13)
[2018-10-22] MEDS: MAGNESIUM HYDROXIDE 30ML CUP PO SCH (08:13)
[2018-10-22] MEDS: OLOPATADINE 0.1% 5 ML OPH BOTH EYES SCH ×2 (08:14→21:24)
[2018-10-22] MEDS: ALBUTEROL/IPRATROPIUM (NEB) 3 ML AMP HHN SCH ×3 (08:21→16:00)
[2018-10-22] MEDS ORDERED: POTASSIUM CHLORIDE (SR) 20 MEQ TAB PO SCH (09:00)
[2018-10-22] MEDS ORDERED: FUROSEMIDE 40 MG TAB PO SCH (09:00)
[2018-10-22] MEDS ORDERED: LIDOCAINE 1% (MPF) 5 ML VIAL ONE (09:37)
[2018-10-22] MEDS: ANASTROZOLE 1 MG TAB PO SCH (11:34)
--- NOTE | 2018-10-22 12:34 | PN ---
Date/Time of Note Date/Time of Note DATE: 10/22/18 TIME: 12:31 Assessment/Plan VTE Prophylaxis Risk score (from Nsg)>0 risk: 5 SCD applied (from Nsg): No SCD contraindicated: other (on.) Pharmacological prophylaxis: LMWH Lines/Catheters IV Catheter Type (from Nrsg): Saline Lock Central line still needed: Yes Urinary Cath still in place: Yes Reason Cath still needed: urinary retention Assessment/Plan Assessment/Plan 1. PRIMARY ADENOCARCINOMA of the left breast. MULTIPLE BONY METS, PULMONARY METS;LIVER METS CHEMO ON HOLD; PT HAS A VERY GOOD RESPONSE TO CHEMO AND AI 2. Severe pain in the interscapular and lumbar sacral area most probably metastatic lesion possible femoral fracture. pathologic fracture of T9 with 60% of loss of height. Neurosurgical f/u. 3. Obesity. 4. Weight loss 60 pounds during the last 2 years by diet 5. PMS. 6. Myopia. 7. Anemia chronic disease with a drop of her hematocrit to 27; Latest results 28. Will recheck tomorrow;Leukopenia.Thrombocytopenia; 8. Anxiety disorder. Claustrophobia. Increase Ativan to 1 mg every 8 as needed at Lexapro 10 mg daily. 9. Posttraumatic stress disorder. 10. Pain in the left forearm with a history of fracture of ulna and radius. 11. Tachycardia 12. Hypoxemia at night marginal improved after 2 L of nasal cannula oxygen. 13. Deconditioning 14. 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 MRI: 09/28/18:diffuse osseous metastatic disease with multiple pathologic compression fractures at least involving the T4, T5, T7, T9 and T11 levels. There is likely mild cortical breakthrough at several levels resulting in mild central canal narrowing. No gross evidence of cord compression is seen.. 15. Pain syndrome. Today the most painful zone is in the right hip area. 16. Hyponatremia-corrected; hypokalemia now hyperkalemic 5.2 hold potassium p.o. today and hold Aldactone today.Recheck and sodium chloride daily with the dose to 4 mg today 17. Leucopenia-improved. 18. Neutropenia with occasional fever and chills. Last chemotherapy 5 days ago. 19. Hypoalbuminemia. 20.Right sided cp after catheter insertion and correction less discomfort. 21. Decreased edema both lower extremities with [id number] with Pleural and Pericardial effusion. 22. pain syndrome 23.bilateral pleural effusions ; s/p left thoracentesis, During the procedure the probe of the u/s was placed to the right side of the chest which showed only minimal amount of liquid on the right pleural cavity. 24. Systolic over diastolic congestive heart failure with a right more than left lower extremity swelling with no DVT in latest venous Doppler. 25. Swelling of the left forearm-persist. Cellulitis of the left forearm with increased edema anteriorly.-Today it is less edematous 26. Pathologic fracture of the right hip;s/p hemiarthroplasty of right hip . Result Diagram: 10/21/18 1531 10/21/18 1532 Results 24hrs Laboratory Tests Test 10/21/18 15:31 10/21/18 15:32 10/21/18 19:07 White Blood Count 5.5 # Red Blood Count 3.58 #L Hemoglobin 11.4 #L Hematocrit 35.2 #L Mean Corpuscular Volume 98.3 Mean Corpuscular Hemoglobin 31.8 Mean Corpuscular Hemoglobin Concent 32.4 Red Cell Distribution Width 16.9 H Platelet Count 224 Mean Platelet Volume 8.6 Immature Granulocytes % 0.200 Neutrophils % 70.2 Lymphocytes % 18.3 Monocytes % 9.7 Eosinophils % 0.9 Basophils % 0.7 Nucleated Red Blood Cells % 0.0 Immature Granulocytes # 0.010 Neutrophils # 3.8 Lymphocytes # 1.0 Monocytes # 0.5 Eosinophils # 0.1 Basophils # 0.0 Nucleated Red Blood Cells # 0.0 Prothrombin Time 13.4 Prothrombin Time Ratio 1.0 INR International Normalized Ratio 1.01 Activated Partial Thromboplast Time 30.3 Sodium Level 139 Potassium Level 3.5 Chloride Level 98 Carbon Dioxide Level 34 H Anion Gap 7 Blood Urea Nitrogen 13 Creatinine 0.61 Est Glomerular Filtrat Rate mL/min > 60 Glucose Level 108 POC Venous Lactate 1.1 Calcium Level 9.2 Total Bilirubin 0.6 Direct Bilirubin 0.00 Indirect Bilirubin 0.6 Aspartate Amino Transf (AST/SGOT) 30 Alanine Aminotransferase (ALT/SGPT) 26 Alkaline Phosphatase 74 Troponin I < 0.012 B-Type Natriuretic Peptide 1150 H Total Protein 6.2 Albumin 3.5 Globulin 2.70 Albumin/Globulin Ratio 1.29 Lactic Acid Level 1.2 Subjective 24 Hr Interval Summary Free Text/Dictation pain in a side of thoracentesis. Constitutional: improved, chills, diaphoresis, disoriented, poor po, requiring O2; No no complaints, No febrile, No requiring IVF, No other ENT: congestion, dysphagia; No no complaints, No bleeding, No pain, No discharge, No sore throat, No other Respiratory: cough, shortness of breath, wheezing; No no complaints, No pain, No pleuritic pain, No sputum, No other Cardiovascular: edema, lightheadedness, orthopenea, palpitations; No no complaints, No chest pain, No paroxysmal nocturnal dyspnea, No other Gastrointestinal: constipation, flatus, nausea, passing stool; No no complaints, No pain, No blood, No decreased appetite, No diarrhea, No vomiting, No other Genitourinary: dysuria; No no complaints, No bleeding, No discharge, No flank pain, No hematuria, No other Musculoskeletal: back pain, bone/joint pain, neck pain Skin: bruising; No no complaints, No erythema, No laceration, No pruritis, No rash, No skin lesions, No other Neurologic: dizziness, focal-weakness, headache; No no complaints, No confusion, No syncope, No seizure, No other Endocrine: polyuria, dry skin; No no complaints, No polydypsia, No temp intolerance, No other Lymphatic: No no complaints, No adenopathy, No tender nodes, No lymphadema, No other Psychological: anxiety; No no complaints, No nl mood/affect, No confusion, No depression, No suicidal, No other Exam/Review of Systems Exam Vitals Vital Signs Date Temp Pulse Resp B/P (MAP) Pulse Ox O2 O2 Flow FiO2 Time Delivery Rate 10/22/18 76 20 Nasal 08:21 Cannula 10/22/18 97 3.0 08:21 10/22/18 98.0 138/84 07:21 (102) Intake and Output 10/21/18 10/21/18 10/22/18 1515:00 23:00 07:00 IntakeIntake Total 350 ml BalanceBalance 350 ml Constitutional: alert, oriented, well developed, distress, frail; No non-verbal, No obese, No other Psych: anxiety; No no complaints, No nl mood/affect, No confusion, No depression, No suicidal, No other Head: normocephalic, atraumatic; No lacerations, No hematomas, No other Eyes: nl conjunctiva, EOMI, nl lids, PERRL; No nl sclera, No icteric, No fundi, disc, No other ENMT: No nl external ears & nose, No nl lips & teeth, No nl nasal mucosa & septum, No mucosa pink and moist, No intubated, No tympanic membranes, No other Neck: jvd, bruits, thyromegaly, nuchal rigidity; No supple, No non-tender, No masses, No other Respiratory: congested cough, crackles/rales, diminished breath sounds; No clear to auscultation, No normal air movement, No intercostal retraction, No labored breathing, No respirations, No tactile fremitus, No wheezing, No other Cardiovascular: regular rate and rhythm, bruits, edema (anasarca.); No nl pulses, No diastolic murmur, No gallop, No irregular rhythm, No jugular venous distention (JVD), No murmurs/extra sounds, No rub, No systolic murmur, No S3, No S4, No other Gastrointestinal: soft, ascites, bowel sounds, distended, rebound or guarding, splenomegaly; No nl liver, spleen, No non-tender, No firm, No hepatomegaly, No mass, No surgical scars, No tender, No other Genitourinary - Female: CVA tenderness Musculoskeletal: nl gait and stance, joint tenderness, muscle tone, muscle weakness; No nl extremities to inspection, No range of motion, No spine non-tender, No swelling, No other Extremities: edema; No normal pulses, No calf tenderness, No cyanosis, No clubbing, No pitting pedal edema, No palpable cord, No tenderness, No other 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: [employer] 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, nl speech Skin: nl turgor, rash or lesions Results Results 24hrs Laboratory Tests Test 10/21/18 15:31 10/21/18 15:32 10/21/18 19:07 White Blood Count 5.5 # Red Blood Count 3.58 #L Hemoglobin 11.4 #L Hematocrit 35.2 #L Mean Corpuscular Volume 98.3 Mean Corpuscular Hemoglobin 31.8 Mean Corpuscular Hemoglobin Concent 32.4 Red Cell Distribution Width 16.9 H Platelet Count 224 Mean Platelet Volume 8.6 Immature Granulocytes % 0.200 Neutrophils % 70.2 Lymphocytes % 18.3 Monocytes % 9.7 Eosinophils % 0.9 Basophils % 0.7 Nucleated Red Blood Cells % 0.0 Immature Granulocytes # 0.010 Neutrophils # 3.8 Lymphocytes # 1.0 Monocytes # 0.5 Eosinophils # 0.1 Basophils # 0.0 Nucleated Red Blood Cells # 0.0 Prothrombin Time 13.4 Prothrombin Time Ratio 1.0 INR International Normalized Ratio 1.01 Activated Partial Thromboplast Time 30.3 Sodium Level 139 Potassium Level 3.5 Chloride Level 98 Carbon Dioxide Level 34 H Anion Gap 7 Blood Urea Nitrogen 13 Creatinine 0.61 Est Glomerular Filtrat Rate mL/min > 60 Glucose Level 108 POC Venous Lactate 1.1 Calcium Level 9.2 Total Bilirubin 0.6 Direct Bilirubin 0.00 Indirect Bilirubin 0.6 Aspartate Amino Transf (AST/SGOT) 30 Alanine Aminotransferase (ALT/SGPT) 26 Alkaline Phosphatase 74 Troponin I < 0.012 B-Type Natriuretic Peptide 1150 H Total Protein 6.2 Albumin 3.5 Globulin 2.70 Albumin/Globulin Ratio 1.29 Lactic Acid Level 1.2 Medications Medication Current Medications Acetaminophen (Tylenol Tab) 650 mg Q4H PRN PO PAIN LEVEL 1-1010; Start 10/21/18 at 23:30 Amlodipine Besylate (Norvasc) 5 mg DAILY PO Last administered on 10/22/18at 08:11; Admin Dose 5 MG; Start 10/22/18 at 09:00 Anastrozole (Arimidex) 1 mg DAILY PO Last administered on 10/22/18at 11:34; Admin Dose 1 MG; Start 10/22/18 at 09:00 Benazepril HCl (Lotensin) 5 mg DAILY PO Last administered on 10/22/18at 08:12; Admin Dose 5 MG; Start 10/22/18 at 09:00 Bisacodyl (Dulcolax Supp) 10 mg Q8 [place] ; Start 10/22/18 at 06:00 Carvedilol (Coreg) 3.125 mg BID PO Last administered on 10/22/18at 08:12; Admin Dose 3.125 MG; Start 10/22/18 at 09:00 Docusate Sodium (Colace) 100 mg BID PO ; Start 10/22/18 at 09:00 Escitalopram Oxalate (Lexapro) 10 mg DAILY PO Last administered on 10/22/18at 08:11; Admin Dose 10 MG; Start 10/22/18 at 09:00 Albuterol/ Ipratropium (Duoneb) 3 ml Q8H RESP THERAPY HHN Last administered on 10/22/18 08:21; Admin Dose 3 ML; Start 10/22/18 at 00:00 Loratadine (Claritin) 10 mg DAILY PO Last administered on 10/22/18at 08:12; Admin Dose 10 MG; Start 10/22/18 at 09:00 Magnesium Hydroxide (Milk Of Mag) 30 ml DAILY PO ; Start 10/22/18 at 09:00 Olopatadine HCl (Patanol 0.1% Oph) 1 drop BID BOTH EYES Last administered on 10/22/18 08:14; Admin Dose 1 DROP; Start 10/22/18 at 09:00 Oxycodone HCl (Oxycontin) 20 mg Q12 PO Last administered on 10/22/18 08:13; Admin Dose 20 MG; Start 10/22/18 at 09:00 Pantoprazole (Protonix Tab) 40 mg AC BREAKFAST PO Last administered on 10/22/18at 07:25; Admin Dose 40 MG; Start 10/22/18 at 07:25 Polyethylene Glycol (Miralax) 17 gm DAILY PO ; Start 10/22/18 at 09:00 Potassium Chloride (Klor-Con 20) 20 meq DAILY PO Last administered on 10/22/18 08:11; Admin Dose 20 MEQ; Start 10/22/18 at 09:00 Simethicone (Mylicon) 80 mg Q8H PO Last administered on 10/22/18 08:11; Admin Dose 80 MG; Start 10/21/18 at 23:30 Spironolactone (Aldactone) 50 mg DAILY PO Last administered on 10/22/18 08:12; Admin Dose 50 MG; Start 10/22/18 at 09:00 Zolpidem Tartrate (Ambien) 10 mg HS PRN PO INSOMNIA Last administered on 10/22/18 at 01:29; Admin Dose 10 MG; Start 10/21/18 at 23:30 Furosemide (Lasix) 40 mg BID DIURETICS IV Last administered on 10/22/18 06:07; Admin Dose 40 MG; Start 10/22/18 at 06:00 Morphine Sulfate (morphine) 2 mg Q4H PRN IV SEVERE PAIN LEVEL 7-10; Start 10/22/18 at 01:30 RUSS JEROME MD October 22, 2018 12:34
[2018-10-22] MEDS: POTASSIUM CHLORIDE (SR) 20 MEQ TAB PO SCH ×2 (13:00→21:18)
[2018-10-22] MEDS ORDERED: METOLAZONE 2.5 MG TAB PO ONE (18:00)
--- NOTE | 2018-10-22 18:59 | CONS ---
DATE OF ADMISSION: 10/21/2018 DATE OF CONSULTATION: 10/22/2018 TYPE OF CONSULTATION: Nephrology. REASON FOR CONSULTATION: Volume overload. PHYSICIAN REQUESTING CONSULT: Tayla Fernández MD HISTORY OF PRESENT ILLNESS: This is a 58-year-old female with a past medical history of metastatic b reast cancer with mets to pulmonary to liver and bone, who presents to [facility] w ith shortness of breath. The patient was previously admitted at [facility] with hyponatre melia, shortness of breath. The patient had a prolonged hospital course where she underwent a thoracen tesis. The patient was aggressively diuresed and eventually discharged home. She now presents with increased shortness of breath. Upon arrival to the emergency room, the patient had a chest x-ray wh ch showed findings of pleural effusion. The patient was subsequently admitted and underwent thoracen tesis with approximately 1 liter removed. The patient's shortness of breath has improved. Additiona lly, the patient had a CT angio which was negative for any PE. No other acute events noted. In terms of patient's renal history, the patient had previous episode of acute kidney injury. Curren tly, renal function is at baseline. The patient does describe increasing edema. Denies any hemoptys is, hematemesis or hematochezia. PAST MEDICAL HISTORY: As stated above, history of metastatic breast cancer, history of CHF, hyperten robinson, depression, chronic back pain, ____ anxiety, posttraumatic stress disorder, chronic pain syndro me. PAST SURGICAL HISTORY: Right hip surgery, history of arthroplasty, status post Port-A-Cath placement . ALLERGIES: NO KNOWN DRUG ALLERGIES. FAMILY HISTORY: No family history of kidney disease. SOCIAL HISTORY: No alcohol, drug use. MEDICATIONS: Have been reviewed. REVIEW OF SYSTEMS: A 14-point review of systems conducted. Pertinent positives stated in HPI, other norris negative. PHYSICAL EXAMINATION: VITAL SIGNS: Blood pressure is 108/59, respiration 19, pulse 90, temperature 99.0. HEENT: Head is normocephalic. NECK: Supple. HEART: Regular rate. LUNGS: Show diminished breath sounds at the base. ABDOMEN: Soft, nontender to palpation without rebound or guarding. EXTREMITIES: Negative for clubbing, cyanosis. Positive edema bilateral lower extremity. Positive l eft upper extremity edema. NEUROLOGIC: No focal deficits. LABORATORY DATA: From 10/21/2018 were reviewed. ASSESSMENT AND PLAN: This is a 58-year-old female who presents with: 1. Acute hypoxemic respiratory failure. Etiology is secondary to bilateral pleural effusion. The p atient is clinically improving after thoracentesis. We will continue to monitor. Continue diuretic therapy. Monitor closely. 2. Volume overload, likely secondary to diastolic heart failure. Unclear if there is evidence of po rtal hypertension or ____ edema due to metastatic disease. We will continue the patient on current d iuretic regimen. We will add metolazone to augment diuresis. Monitor electrolytes and renal functio n closely. 3. Anemia. Monitor hemoglobin and hematocrit levels. 4. Breast cancer with metastatic disease. Continue medical management. Follow up with oncology. 5. Hip fracture status post arthroplasty. Continue physical therapy. Continue pain control. 6. Pleural effusion, status post thoracentesis. Continue to monitor. 7. Chronic pain syndrome. Continue current pain regimen. 8. History of leukopenia, improved. 9. Hypertension. Continue current blood pressure regimen. Thank you, Dr. Fernández, for this interesting consult. It will be a pleasure to follow patient with you throughout the hospital course. Dictated By: ANDRÉS TATUM DO NR/NTS Conf#: [id number] DID#: [id number] CC: RUSS JEROME MD;*End*
[2018-10-23] VITALS (13 sets, daily range): BP systolic 96–132; BP diastolic 55–76; PULSE 83–105; RESP 18–22
[2018-10-23] MEDS: BISACODYL 10 MG SUPP PR SCH ×3 (05:22→22:00)
[2018-10-23] MEDS: FUROSEMIDE 40 MG INJ IV SCH ×2 (06:50→18:28)
[2018-10-23] MEDS: PANTOPRAZOLE (EC) 40 MG TAB PO SCH (06:50)
[2018-10-23] MEDS: ALBUTEROL/IPRATROPIUM (NEB) 3 ML AMP HHN SCH ×3 (07:48→16:20)
[2018-10-23] MEDS: MAGNESIUM HYDROXIDE 30ML CUP PO SCH (09:00)
[2018-10-23] MEDS: DOCUSATE SODIUM 100 MG CAP PO SCH ×2 (09:00→20:34)
[2018-10-23] MEDS: POLYETHYLENE GLYCOL 17 GM PACKET PO SCH (09:00)
--- NOTE | 2018-10-23 09:17 | PN ---
Date/Time of Note Date/Time of Note DATE: 10/23/18 TIME: 09:16 Assessment/Plan VTE Prophylaxis Risk score (from Nsg)>0 risk: 7 SCD applied (from Ns): No SCD contraindicated: other (on) Pharmacological prophylaxis: LMWH Lines/Catheters IV Catheter Type (from Nrs): Saline Lock Central line still needed: No Urinary Cath still in place: No Reason Cath still needed: urinary retention Assessment/Plan Assessment/Plan 1. PRIMARY ADENOCARCINOMA of the left breast. MULTIPLE BONY METS, PULMONARY METS;LIVER METS CHEMO ON HOLD; PT HAS A VERY GOOD RESPONSE TO CHEMO AND AI 2. Severe pain in the interscapular and lumbar sacral area most probably metastatic lesion possible femoral fracture. pathologic fracture of T9 with 60% of loss of height. Neurosurgical f/u. 3. Obesity. 4. Weight loss 60 pounds during the last 2 years by diet 5. PMS. 6. Myopia. 7. Anemia chronic disease with a drop of her hematocrit to 27; Latest results 28. Will recheck tomorrow;Leukopenia.Thrombocytopenia; 8. Anxiety disorder. Claustrophobia. Increase Ativan to 1 mg every 8 as needed at Lexapro 10 mg daily. 9. Posttraumatic stress disorder. 10. Pain in the left forearm with a history of fracture of ulna and radius. 11. Tachycardia 12. Hypoxemia at night marginal improved after 2 L of nasal cannula oxygen. 13. Deconditioning 14. 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 MRI: 09/28/18:diffuse osseous metastatic disease with multiple pathologic compression fractures at least involving the T4, T5, T7, T9 and T11 levels. There is likely mild cortical breakthrough at several levels resulting in mild central canal narrowing. No gross evidence of cord compression is seen.. 15. Pain syndrome. Today the most painful zone is in the right hip area. 16. Hyponatremia-corrected; hypokalemia now hyperkalemic 5.2 hold potassium p.o. today and hold Aldactone today.Recheck and sodium chloride daily with the dose to 4 mg today 17. Leucopenia-improved. 18. Neutropenia with occasional fever and chills. Last chemotherapy 5 days ago. 19. Hypoalbuminemia. 20.Right sided cp after catheter insertion and correction less discomfort. 21. Decreased edema both lower extremities with [id number]-Umvhbvpa with Pleural and Pericardial effusion. 22. pain syndrome 23.bilateral pleural effusions ; s/p left thoracentesis, During the procedure the probe of the u/s was placed to the right side of the chest which showed only minimal amount of liquid on the right pleural cavity. 24. Systolic over diastolic congestive heart failure with a right more than left lower extremity swelling with no DVT in latest venous Doppler. 25. Swelling of the left forearm-persist. Cellulitis of the left forearm with increased edema anteriorly.-Today it is less edematous 26. Pathologic fracture of the right hip;s/p hemiarthroplasty of right hip . Result Diagram: 10/23/1860510/23/18605 Results 24hrs Laboratory Tests Test 10/23/18 06:06 White Blood Count 4.5 L Red Blood Count 3.03 L Hemoglobin 9.6 L Hematocrit 30.6 L Mean Corpuscular Volume 101.0 Mean Corpuscular Hemoglobin 31.7 Mean Corpuscular Hemoglobin Concent 31.4 L Red Cell Distribution Width 17.7 H Platelet Count 227 Mean Platelet Volume 9.0 Immature Granulocytes % 0.400 Neutrophils % 43.8 Lymphocytes % 33.6 Monocytes % 14.6 H Eosinophils % 6.3 Basophils % 1.3 Nucleated Red Blood Cells % 0.0 Immature Granulocytes # 0.020 Neutrophils # 2.0 Lymphocytes # 1.5 Monocytes # 0.7 Eosinophils # 0.3 Basophils # 0.1 Nucleated Red Blood Cells # 0.0 Sodium Level 139 Potassium Level 3.8 Chloride Level 100 Carbon Dioxide Level 34 H Anion Gap 5 Blood Urea Nitrogen 15 Creatinine 0.77 Est Glomerular Filtrat Rate mL/min > 60 Glucose Level 92 Calcium Level 8.4 Phosphorus Level 4.1 Magnesium Level 1.7 Total Bilirubin 0.5 Direct Bilirubin 0.00 Indirect Bilirubin 0.5 Aspartate Amino Transf (AST/SGOT) 33 Alanine Aminotransferase (ALT/SGPT) 29 Alkaline Phosphatase 71 Total Protein 5.6 L Albumin 3.0 L Globulin 2.60 Albumin/Globulin Ratio 1.15 Subjective 24 Hr Interval Summary Free Text/Dictation SOB improved. Exam/Review of Systems Exam Vitals Vital Signs Date Temp Pulse Resp B/P (MAP) Pulse Ox O2 O2 Flow FiO2 Time Delivery Rate 10/23/18 96 08:08 10/23/18 98.0 22 112/71 96 08:00 (85) 10/23/18 Nasal 2.0 07:58 Cannula 10/23/18 30 01:33 Intake and Output 10/22/18 10/22/18 10/23/18 1515:00 23:00 07:00 IntakeIntake Total 300 ml OutputOutput Total 800 ml BalanceBalance -500 ml Results Results 24hrs Laboratory Tests Test 10/23/18 06:06 White Blood Count 4.5 L Red Blood Count 3.03 L Hemoglobin 9.6 L Hematocrit 30.6 L Mean Corpuscular Volume 101.0 Mean Corpuscular Hemoglobin 31.7 Mean Corpuscular Hemoglobin Concent 31.4 L Red Cell Distribution Width 17.7 H Platelet Count 227 Mean Platelet Volume 9.0 Immature Granulocytes % 0.400 Neutrophils % 43.8 Lymphocytes % 33.6 Monocytes % 14.6 H Eosinophils % 6.3 Basophils % 1.3 Nucleated Red Blood Cells % 0.0 Immature Granulocytes # 0.020 Neutrophils # 2.0 Lymphocytes # 1.5 Monocytes # 0.7 Eosinophils # 0.3 Basophils # 0.1 Nucleated Red Blood Cells # 0.0 Sodium Level 139 Potassium Level 3.8 Chloride Level 100 Carbon Dioxide Level 34 H Anion Gap 5 Blood Urea Nitrogen 15 Creatinine 0.77 Est Glomerular Filtrat Rate mL/min > 60 Glucose Level 92 Calcium Level 8.4 Phosphorus Level 4.1 Magnesium Level 1.7 Total Bilirubin 0.5 Direct Bilirubin 0.00 Indirect Bilirubin 0.5 Aspartate Amino Transf (AST/SGOT) 33 Alanine Aminotransferase (ALT/SGPT) 29 Alkaline Phosphatase 71 Total Protein 5.6 L Albumin 3.0 L Globulin 2.60 Albumin/Globulin Ratio 1.15 Medications Medication Current Medications Acetaminophen (Tylenol Tab) 650 mg Q4H PRN PO PAIN LEVEL 1-10/10; Start 10/21/18 at 23:30 Amlodipine Besylate (Norvasc) 5 mg DAILY PO Last administered on 10/22/18at 08:11; Admin Dose 5 MG; Start 10/22/18 at 09:00 Anastrozole (Arimidex) 1 mg DAILY PO Last administered on 10/22/18at 11:34; Admin Dose 1 MG; Start 10/22/18 at 09:00 Benazepril HCl (Lotensin) 5 mg DAILY PO Last administered on 10/22/18at 08:12; Admin Dose 5 MG; Start 10/22/18 at 09:00 Bisacodyl (Dulcolax Supp) 10 mg Q8 GA ; Start 10/22/18 at 06:00 Carvedilol (Coreg) 3.125 mg BID PO Last administered on 10/22/18 21:24; Admin Dose 3.125 MG; Start 10/22/18 at 09:00 Docusate Sodium (Colace) 100 mg BID PO ; Start 10/22/18 at 09:00 Escitalopram Oxalate (Lexapro) 10 mg DAILY PO Last administered on 10/22/18 08:11; Admin Dose 10 MG; Start 10/22/18 at 09:00 Albuterol/ Ipratropium (Duoneb) 3 ml Q8H RESP THERAPY HHN Last administered on 10/23/18 07:48; Admin Dose 3 ML; Start 10/22/18 at 00:00 Loratadine (Claritin) 10 mg DAILY PO Last administered on 10/22/18 08:12; Admin Dose 10 MG; Start 10/22/18 at 09:00 Magnesium Hydroxide (Milk Of Mag) 30 ml DAILY PO ; Start 10/22/18 at 09:00 Olopatadine HCl (Patanol 0.1% Oph) 1 drop BID BOTH EYES Last administered on 10/22/18 21:24; Admin Dose 1 DROP; Start 10/22/18 at 09:00 Oxycodone HCl (Oxycontin) 20 mg Q12 PO Last administered on 10/22/18 21:19; Admin Dose 20 MG; Start 10/22/18 at 09:00 Pantoprazole (Protonix Tab) 40 mg AC BREAKFAST PO Last administered on 10/23/18 06:50; Admin Dose 40 MG; Start 10/22/18 at 07:25 Polyethylene Glycol (Miralax) 17 gm DAILY PO ; Start 10/22/18 at 09:00 Simethicone (Mylicon) 80 mg Q8H PO Last administered on 10/23/18 06:50; Admin Dose 80 MG; Start 10/21/18 at 23:30 Spironolactone (Aldactone) 50 mg DAILY PO Last administered on 10/22/18 08:12; Admin Dose 50 MG; Start 10/22/18 at 09:00 Zolpidem Tartrate (Ambien) 10 mg HS PRN PO INSOMNIA Last administered on 5/7/19at 21:20; Admin Dose 10 MG; Start 10/21/18 at 23:30 Furosemide (Lasix) 40 mg BID DIURETICS IV Last administered on 10/23/18at 06:50; Admin Dose 40 MG; Start 10/22/18 at 06:00 Morphine Sulfate (morphine) 2 mg Q4H PRN IV SEVERE PAIN LEVEL 7-10; Start 10/22/18 at 01:30 Potassium Chloride (Klor-Con 20) 20 meq BID PO Last administered on 10/22/18at 21:18; Admin Dose 20 MEQ; Start 10/22/18 at 13:00 Metolazone (Zaroxolyn) 5 mg ONCE ONCE PO ; Start 10/23/18 at 09:30; Stop 10/23/18 at 09:31; Status RUSS PEREZ MD October 23, 2018 09:17
[2018-10-23] MEDS ORDERED: METOLAZONE 5 MG TAB PO ONE (09:30)
--- NOTE | 2018-10-23 09:30 | PN ---
DATE: 10/23/2018 SUBJECTIVE: The patient's shortness of breath has improved. The patient states she has had minimal urinary output in last 24 hours. She denies any hemoptysis, hematemesis or hematochezia. OBJECTIVE: VITAL SIGNS: Blood pressure is 112/71, respirations 22, pulse 99, temperature 98.0. HEENT: Head is normocephalic. NECK: Supple. HEART: Regular rate. LUNGS: Show diminished breath sounds at the base. ABDOMEN: Soft, nontender to palpation without rebound or guarding. EXTREMITIES: Negative for clubbing, cyanosis. Positive edema on left upper, bilateral lower extremi ty. DERMATOLOGIC: No rashes. MUSCULOSKELETAL: No joint effusion. NEUROLOGIC: No change in exam. MEDICATIONS: Reviewed. LABORATORY DATA: Reviewed. IMAGING STUDIES: Reviewed. MICROBIOLOGY: Reviewed. ASSESSMENT AND PLAN: 1. Acute hypoxemic respiratory failure, etiology is secondary to bilateral pleural effusion. The pa tient is status post thoracentesis. Continue to monitor. 2. Volume overload. Etiology is multifactorial secondary to diastolic heart failure. Unclear if th ere is evidence of portal hypertension due to metastatic disease to the liver versus lymphangitic spr ead. We will continue Lasix. We will increase metolazone, monitor I's and O's closely. 3. Anemia. Monitor hemoglobin and hematocrit levels. 4. Breast cancer with metastatic disease. Continue to monitor. Follow up with oncology. 5. Hip fracture, status post arthroplasty. Continue physical therapy. 6. Pleural effusion, status post thoracentesis. 7. Chronic pain syndrome. Continue current pain regimen. 8. History of leukemia, improved. 9. Hypertension. Continue current blood pressure regimen. Dictated By: ANDRÉS YO/NTS Conf#: [id number] DID#: [id number] CC: RUSS JEROME MD;*EndCC*
[2018-10-23] MEDS: ESCITALOPRAM 10 MG TAB PO SCH (09:50)
[2018-10-23] MEDS: LORATADINE 10 MG TAB PO SCH (09:51)
[2018-10-23] MEDS: POTASSIUM CHLORIDE (SR) 20 MEQ TAB PO SCH ×2 (09:51→20:34)
[2018-10-23] MEDS: SPIRONOLACTONE 50 MG TAB PO SCH (09:51)
[2018-10-23] MEDS: AMLODIPINE 5 MG TAB PO SCH (09:51)
[2018-10-23] MEDS: BENAZEPRIL 5 MG TAB PO SCH (09:51)
[2018-10-23] MEDS: OLOPATADINE 0.1% 5 ML OPH BOTH EYES SCH ×2 (09:51→20:33)
[2018-10-23] MEDS: oxyCODONE (CR) 20 MG TAB [oxyCONTIN] PO SCH ×2 (09:52→20:36)
[2018-10-23] MEDS: ANASTROZOLE 1 MG TAB PO SCH (10:05)
[2018-10-23] MEDS: morphine 2 MG INJ IV PRN (14:15)
--- NOTE | 2018-10-23 17:08 | CONS ---
DATE OF ADMISSION: 10/21/2018 DATE OF CONSULTATION: 10/23/2018 TYPE OF CONSULTATION: Cardiology. REASON FOR CONSULTATION: Congestive heart failure exacerbation. REQUESTING PHYSICIAN: Sun Jerome MD HISTORY OF PRESENT ILLNESS: Ms. Foreman is a 58-year-old female with a history of metastatic breast cancer with mets to the liver, bone, lungs, congestive heart failure with preserved EF, pathologic fracture of the leg, status post open reduction and internal fixation, recurrent pleural effusions, who presented with complaints of recurrent shortness of breath and orthopnea. Initially upon arrival, temperature of 96.9, blood pressure of 135/94, pulse 84, respiratory rate 20, satting 96%. The patient's labs were notable for white blood cell count of 5.5, hemoglobin 11.4, platelet count of 224, sodium of 139, potassium 3.5, creatinine 0.6, BUN 13, troponin negative, BNP of 1150, INR of 1. The patient underwent a CT, CTA revealing no evidence of pulmonary embolus, large bilateral pleural effusions, cardiomegaly, moderate pericardial effusion, liver lesions, diffuse osseous disease; a chest x-ray that revealed increase in bilateral perihilar and bibasilar opacities, small bilateral pleural effusions; a venous ultrasound that revealed no evidence of DVT involving either extremity and subsequently underwent thoracentesis and -1 liter of fluids from the left pleural space with a followup chest x-ray revealing no pneumothorax and decreased left pleural effusion. The patient's electrocardiogram revealed normal sinus rhythm, rate of 87, low voltage throughout, septal Q's, nonspecific ST diffusely. The patient was admitted to the floor and since admit to floor, patient has been placed on Lasix with Aldactone and was given single doses of metolazone. PAST MEDICAL HISTORY: As above in HPI. MEDICATIONS CURRENTLY IN HOSPITAL: 1. Potassium chloride 10 mEq b.i.d. 2. Norvasc 5 mg daily. 3. Arimidex 1 mg daily. 4. Lotensin 5 mg daily. 5. Carvedilol 3.125 mg p.o. b.i.d. 6. Colace 100 mg b.i.d. 7. Lexapro. 8. Claritin. 9. ____ eye drops. 10. Aldactone 50 mg daily. 11. Protonix. 12. Lexapro 40 mg IV b.i.d. 13. Morphine p.r.n. 14. Tylenol p.r.n. ALLERGIES: NO KNOWN DRUG ALLERGIES. SOCIAL HISTORY: No current tobacco, EtOH or illicit drug use. FAMILY HISTORY: No history of sudden cardiac or early CAD. REVIEW OF SYSTEMS: As above in HPI. CONSTITUTIONAL: No fevers, chills. PULMONARY: Possible shortness of breath. CARDIOVASCULAR: Congestive heart failure. GASTROINTESTINAL: No vomiting. GENITOURINARY: No hematuria. MUSCULOSKELETAL: Degenerative joint disease. PSYCHIATRIC: The patient denies depression. NEUROLOGIC: No documented history of CVA. ENDOCRINE: No documented history of diabetes mellitus. PHYSICAL EXAMINATION: VITAL SIGNS: Temperature of 98, blood pressure 115/57, pulse 100, respiratory rate 22, satting 96% on 2 liters. GENERAL: The patient is alert, awake, complaining of shortness of breath. NECK: JVP is approximately 9 to 10 cm of water. CHEST: Decreased breath sounds at bases bilaterally. HEART: Regular rate and rhythm. Normal S1, S2. I/ systolic murmur. Nondisplaced PMI. ABDOMEN: Positive bowel sounds, soft. EXTREMITIES: A 2+ pitting edema bilaterally, 1+ pulses bilateral posterior tibial. LABORATORY DATA: Most recently from today, sodium 139, potassium 3.8, creatinine 0.7, BUN 15. White blood cell count 4.5, hemoglobin 9.6, platelet count 227. IMAGING STUDIES: As above in HPI with a chest x-ray most recently from 10/22/2018 revealing no change in aeration, no pneumothorax. ELECTROCARDIOGRAM: As above in HPI. No further electrocardiograms for my review at this time. IMPRESSION: 1. Congestive heart failure exacerbation would be diastolic, acute on chronic by most recent echo. 2. Abnormal electrocardiogram with low voltage, rule out pericardial effusion. 3. Hypertension, reasonable control. 4. Metastatic breast carcinoma. 5. History of pathologic fractures of the leg, status post open reduction and internal fixation. 6. Anemia. 7. Increased BNP consistent with patient's congestive heart failure. RECOMMENDATIONS: 1. At this time, we would maintain the patient on telemetry monitoring to continue to follow rhythm and rates closely. 2. Continue the patient's current carvedilol, Norvasc and benazepril for now, but may need to hold doses as the patient's blood pressure is not very high and last time had to stop all blood pressure medications during diuresis. 3. Continue the patient's baseline Aldactone and Lasix and the patient may require standing metolazone but has been given a dose today to increase output. Follow urine output and volume status closely. 4. We will do a limited echo to rule out significant pericardial effusion given low voltage on EKG. 5. Continue the patient's Arimidex. 6. Follow the patient's potassium closely on Aldactone and potassium chloride repletion. Thank you for allowing me to take part in the care of this patient. I will continue to follow her very closely with you with further recommendations to be made as the patient progresses through her inpatient hospital clinical course. Dictated By: KAMILA VIRAMONTES/KEANU Conf#: [id number] DID#: [id number] CC: SUN JEROME MD;*EndCC* MTDD
--- NOTE | 2018-10-23 20:24 | PN ---
Date/Time of Note Date/Time of Note DATE: 10/23/18 TIME: 20:19 Assessment/Plan VTE Prophylaxis Risk score (from Nsg)>0 risk: 7 SCD applied (from Ns): No SCD contraindicated: other (on) Pharmacological prophylaxis: LMWH Lines/Catheters IV Catheter Type (from Nrsg): [place] [employer] line still needed: No Urinary Cath still in place: No Assessment/Plan Assessment/Plan 1. PRIMARY ADENOCARCINOMA of the left breast. MULTIPLE BONY METS, PULMONARY METS;LIVER METS CHEMO ON HOLD; PT HAS A VERY GOOD RESPONSE TO CHEMO AND AI 2. Severe pain in the interscapular and lumbar sacral area most probably metastatic lesion possible femoral fracture. pathologic fracture of T9 with 60% of loss of height. Neurosurgical f/u. 3. Obesity. 4. Weight loss 60 pounds during the last 2 years by diet 5. PMS. 6. Myopia. 7. Anemia chronic disease with a drop of her hematocrit to 27; Latest results 28. Will recheck tomorrow;Leukopenia.Thrombocytopenia; 8. Anxiety disorder. Claustrophobia. Increase Ativan to 1 mg every 8 as needed at Lexapro 10 mg daily. 9. Posttraumatic stress disorder. 10. Pain in the left forearm with a history of fracture of ulna and radius. 11. Tachycardia 12. Hypoxemia at night marginal improved after 2 L of nasal cannula oxygen. 13. Deconditioning 14. 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 MRI: 09/28/18:diffuse osseous metastatic disease with multiple pathologic compression fractures at least involving the T4, T5, T7, T9 and T11 levels. There is likely mild cortical breakthrough at several levels resulting in mild central canal narrowing. No gross evidence of cord compression is seen.. 15. Pain syndrome. Today the most painful zone is in the right hip area. 16. Hyponatremia-corrected; hypokalemia now hyperkalemic 5.2 hold potassium p.o. today and hold Aldactone today.Recheck and sodium chloride daily with the dose to 4 mg today 17. Leucopenia-improved. 18. Neutropenia with occasional fever and chills. Last chemotherapy 5 days ago. 19. Hypoalbuminemia. 20.Right sided cp after catheter insertion and correction less discomfort. 21. Decreased edema both lower extremities with [id number] with Pleural and Pericardial effusion. 22. pain syndrome 23.bilateral pleural effusions ; s/p left thoracentesis, During the procedure the probe of the u/s was placed to the right side of the chest which showed only minimal amount of liquid on the right pleural cavity. Reaccumulation of the pleural fluid. Plan to tap from the right side tomorrow a.m. 24. Systolic over diastolic congestive heart failure with a right more than left lower extremity swelling with no DVT in latest venous Doppler. 25. Swelling of the left forearm-persist. Cellulitis of the left forearm with increased edema anteriorly.-Today it is less edematous 26. Pathologic fracture of the right hip;s/p hemiarthroplasty of right hip . 27. Dizziness 28. Chills. 29. Memory impairment. Result Diagram: 10/23/18 0606 10/23/18 0606 Results 24hrs Laboratory Tests Test 10/23/18 06:06 White Blood Count 4.5 L Red Blood Count 3.03 L Hemoglobin 9.6 L Hematocrit 30.6 L Mean Corpuscular Volume 101.0 Mean Corpuscular Hemoglobin 31.7 Mean Corpuscular Hemoglobin Concent 31.4 L Red Cell Distribution Width 17.7 H Platelet Count 227 Mean Platelet Volume 9.0 Immature Granulocytes % 0.400 Neutrophils % 43.8 Lymphocytes % 33.6 Monocytes % 14.6 H Eosinophils % 6.3 Basophils % 1.3 Nucleated Red Blood Cells % 0.0 Immature Granulocytes # 0.020 Neutrophils # 2.0 Lymphocytes # 1.5 Monocytes # 0.7 Eosinophils # 0.3 Basophils # 0.1 Nucleated Red Blood Cells # 0.0 Sodium Level 139 Potassium Level 3.8 Chloride Level 100 Carbon Dioxide Level 34 H Anion Gap 5 Blood Urea Nitrogen 15 Creatinine 0.77 Est Glomerular Filtrat Rate mL/min > 60 Glucose Level 92 Calcium Level 8.4 Phosphorus Level 4.1 Magnesium Level 1.7 Total Bilirubin 0.5 Direct Bilirubin 0.00 Indirect Bilirubin 0.5 Aspartate Amino Transf (AST/SGOT) 33 Alanine Aminotransferase (ALT/SGPT) 29 Alkaline Phosphatase 71 Total Protein 5.6 L Albumin 3.0 L Globulin 2.60 Albumin/Globulin Ratio 1.15 Subjective 24 Hr Interval Summary Free Text/Dictation Chills on and off. Getting dizzy when I am getting up. Significant decrease of swelling. Constitutional: improved, chills, disoriented, poor po, requiring O2; No no complaints, No diaphoresis, No febrile, No requiring IVF, No other Eyes: No no complaints, No pain, No discharge, No redness, No visual change, No other ENT: congestion, dysphagia, sore throat; No no complaints, No bleeding, No pain, No discharge, No other Respiratory: cough, shortness of breath; No no complaints, No pain, No pleuritic pain, No sputum, No wheezing, No other Cardiovascular: chest pain, edema, lightheadedness, orthopenea, palpitations, paroxysmal nocturnal dyspnea; No no complaints, No other Gastrointestinal: constipation, decreased appetite, nausea; No no complaints, No pain, No blood, No diarrhea, No flatus, No passing stool, No vomiting, No other Genitourinary: dysuria, flank pain; No no complaints, No bleeding, No discharge, No hematuria, No other Musculoskeletal: back pain, bone/joint pain, neck pain, restricted range of motion; No no complaints, No swelling, No other Skin: erythema, laceration, pruritis, rash; No no complaints, No bruising, No skin lesions, No other Neurologic: dizziness, headache, syncope; No no complaints, No confusion, No focal-weakness, No seizure, No other Lymphatic: No no complaints, No adenopathy, No tender nodes, No lymphadema, No other Psychological: anxiety, depression; No no complaints, No nl mood/affect, No confusion, No suicidal, No other Exam/Review of Systems Exam Vitals Vital Signs Date Temp Pulse Resp B/P (MAP) Pulse Ox O2 O2 Flow FiO2 Time Delivery Rate 10/23/18 105 20:02 10/23/18 98.1 19 96/59 (71) 92 20:01 10/23/18 3.0 30 16:30 10/23/18 Nasal 11:43 Cannula Intake and Output 10/22/18 10/22/18 10/23/18 1515:00 23:00 07:00 IntakeIntake Total 300 ml OutputOutput Total 1000 ml 800 ml BalanceBalance -1000 ml -500 ml Constitutional: alert, oriented, well developed, distress, frail Psych: anxiety, depression; No no complaints, No nl mood/affect, No confusion, No suicidal, No other Head: normocephalic, atraumatic; No lacerations, No hematomas, No other Eyes: EOMI, nl lids, PERRL; No nl conjunctiva, No nl sclera, No icteric, No fundi, disc, No other ENMT: No nl external ears & nose, No nl lips & teeth, No nl nasal mucosa & septum, No mucosa pink and moist, No intubated, No tympanic membranes, No other Neck: jvd, bruits, thyromegaly, nuchal rigidity Respiratory: normal air movement, diminished breath sounds; No clear to auscultation, No congested cough, No crackles/rales, No intercostal retraction, No labored breathing, No respirations, No tactile fremitus, No wheezing, No other Cardiovascular: regular rate and rhythm, bruits, jugular venous distention (JVD), systolic murmur; No nl pulses, No diastolic murmur, No edema, No gallop, No irregular rhythm, No murmurs/extra sounds, No rub, No S3, No S4, No other Gastrointestinal: soft, nl liver, spleen, bowel sounds; No non-tender, No ascites, No distended, No firm, No hepatomegaly, No mass, No rebound or guarding, No splenomegaly, No surgical scars, No tender, No other Musculoskeletal: joint tenderness, muscle tone; No nl extremities to inspection, No nl gait and stance, No muscle weakness, No range of motion, No spine non-tender, No swelling, No other Extremities: edema (Significant decrease of edema of extremities and overall le ss prominent anasarca.); No normal pulses, No calf tenderness, No cyanosis, No clubbing, No pitting pedal edema, No palpable cord, No tenderness, No other 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: ECHO TECH 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, nl speech, nl strength, confused, lethargic, numbness; No nl mental status, No DTR's symmetric, No focal weakness, No reflexes, No unresponsive, No other Skin: No nl turgor, No rash or lesions, No diaphoresis, No ecchymosis, No laceration, No puncture, No other Results Results 24hrs Laboratory Tests Test 10/23/18 06:06 White Blood Count 4.5 L Red Blood Count 3.03 L Hemoglobin 9.6 L Hematocrit 30.6 L Mean Corpuscular Volume 101.0 Mean Corpuscular Hemoglobin 31.7 Mean Corpuscular Hemoglobin Concent 31.4 L Red Cell Distribution Width 17.7 H Platelet Count 227 Mean Platelet Volume 9.0 Immature Granulocytes % 0.400 Neutrophils % 43.8 Lymphocytes % 33.6 Monocytes % 14.6 H Eosinophils % 6.3 Basophils % 1.3 Nucleated Red Blood Cells % 0.0 Immature Granulocytes # 0.020 Neutrophils # 2.0 Lymphocytes # 1.5 Monocytes # 0.7 Eosinophils # 0.3 Basophils # 0.1 Nucleated Red Blood Cells # 0.0 Sodium Level 139 Potassium Level 3.8 Chloride Level 100 Carbon Dioxide Level 34 H Anion Gap 5 Blood Urea Nitrogen 15 Creatinine 0.77 Est Glomerular Filtrat Rate mL/min > 60 Glucose Level 92 Calcium Level 8.4 Phosphorus Level 4.1 Magnesium Level 1.7 Total Bilirubin 0.5 Direct Bilirubin 0.00 Indirect Bilirubin 0.5 Aspartate Amino Transf (AST/SGOT) 33 Alanine Aminotransferase (ALT/SGPT) 29 Alkaline Phosphatase 71 Total Protein 5.6 L Albumin 3.0 L Globulin 2.60 Albumin/Globulin Ratio 1.15 Medications Medication Current Medications Acetaminophen (Tylenol Tab) 650 mg Q4H PRN PO PAIN LEVEL 1-10; Start 10/21/18 at 23:30 Amlodipine Besylate (Norvasc) 5 mg DAILY PO Last administered on 10/23/18at 09:51; Admin Dose 5 MG; Start 10/22/18 at 09:00 Anastrozole (Arimidex) 1 mg DAILY PO Last administered on 10/23/18at 10:05; Admin Dose 1 MG; Start 10/22/18 at 09:00 Benazepril HCl (Lotensin) 5 mg DAILY PO Last administered on 10/23/18at 09:51; Admin Dose 5 MG; Start 10/22/18 at 09:00 Bisacodyl (Dulcolax Supp) 10 mg Q8 NE ; Start 10/22/18 at 06:00 Carvedilol (Coreg) 3.125 mg BID PO Last administered on 10/23/18at 09:52; Admin Dose 3.125 MG; Start 10/22/18 at 09:00 Docusate Sodium (Colace) 100 mg BID PO ; Start 10/22/18 at 09:00 Escitalopram Oxalate (Lexapro) 10 mg DAILY PO Last administered on 10/23/18at 09:50; Admin Dose 10 MG; Start 10/22/18 at 09:00 Albuterol/ Ipratropium (Duoneb) 3 ml Q8H RESP THERAPY HHN Last administered on 10/23/18 07:48; Admin Dose 3 ML; Start 10/22/18 at 00:00 Loratadine (Claritin) 10 mg DAILY PO Last administered on 10/23/18 09:51; Admin Dose 10 MG; Start 10/22/18 at 09:00 Magnesium Hydroxide (Milk Of Mag) 30 ml DAILY PO ; Start 10/22/18 at 09:00 Olopatadine HCl (Patanol 0.1% Oph) 1 drop BID BOTH EYES Last administered on 10/23/18 09:51; Admin Dose 1 DROP; Start 10/22/18 at 09:00 Oxycodone HCl (Oxycontin) 20 mg Q12 PO Last administered on 10/23/18 09:52; Admin Dose 20 MG; Start 10/22/18 at 09:00 Pantoprazole (Protonix Tab) 40 mg AC BREAKFAST PO Last administered on 10/23/18 06:50; Admin Dose 40 MG; Start 10/22/18 at 07:25 Polyethylene Glycol (Miralax) 17 gm DAILY PO ; Start 10/22/18 at 09:00 Simethicone (Mylicon) 80 mg Q8H PO Last administered on 10/23/18 15:30; Admin Dose 80 MG; Start 10/21/18 at 23:30 Spironolactone (Aldactone) 50 mg DAILY PO Last administered on 10/23/18 09:51; Admin Dose 50 MG; Start 10/22/18 at 09:00 Zolpidem Tartrate (Ambien) 10 mg HS PRN PO INSOMNIA Last administered on 10/22/18 21:20; Admin Dose 10 MG; Start 10/21/18 at 23:30 Furosemide (Lasix) 40 mg BID DIURETICS IV Last administered on 10/23/18 18:28; Admin Dose 40 MG; Start 10/22/18 at 06:00 Morphine Sulfate (morphine) 2 mg Q4H PRN IV SEVERE PAIN LEVEL 7-10 Last administered on 10/23/18 14:15; Admin Dose 2 MG; Start 10/22/18 at 01:30 Potassium Chloride (Klor-Con 20) 20 meq BID PO Last administered on 5/8/19at 09:51; Admin Dose 20 MEQ; Start 10/22/18 at 13:00 RUSS JEROME MD October 23, 2018 20:24
[2018-10-23] MEDS: ALBUMIN HUMAN 25% 100 ML IV SCH (20:35)
--- NOTE | 2018-10-23 22:05 | CONS ---
Assessment/Plan Assessment/Plan Hospital Course (Demo Recall) METASTATIC BREAST CANCER WITH PRIMARY ADENOCARCINOMA IN the left breast. MULTIPLE BONY METS, PULMONARY METS, LIVER METS CHEMO ON HOLD PT HAS A VERY GOOD RESPONSE TO CHEMO AND AI CONT AI FOR NOW CT ABD FOR RESTAGING 08.27.18- noted , stable Leukopenia- post chemo, IMPROVING post NEUPOGEN monitor closely post Neutropenia with occasional fever and chills. - resolved Anemia chronic disease SOB PLEURAL EFFUSIONS, NEG CYTOLOGY POST thoracentesis Fluid overload diuretic cardiology consult Severe pain in the interscapular and lumbar sacral area most probably metastatic lesion possible femoral fracture. pathologic fracture of T9 with 60% of loss of height. Obesity. Weight loss 60 pounds during the last 2 years PMS. Myopia. Anxiety disorder. Claustrophobia. Posttraumatic stress disorder. Pain in the left forearm with a history of fracture of ulna and radius. Tachycardia Hypoxemia at night marginal improved after 2 L of nasal cannula oxygen. Deconditioning Pain syndrome. Today the most painful zone is in the right hip area. X-ray did not show any fractures. Hyponatremia- resolved Hypoalbuminemia Right sided cp after catheter insertion and correction less discomfort. Decreased edema both lower extremities with hypotension-improving Swelling of the left forearm-persist. VK LE Consultation Date/Type/Reason Admit Date/Time October 21, 2018 at 17:39 Initial Consult Date 10/21/18 Type of Consult [facility] Requesting Provider: RUSS JEROME MD Date/Time of Note DATE: 10/23/18 TIME: 22:03 24 HR Interval Summary Free Text/Dictation all noted post thoracentesis decreased SOB Exam/Review of Systems Exam Vitals Vital Signs Date Temp Pulse Resp B/P (MAP) Pulse Ox O2 O2 Flow FiO2 Time Delivery Rate 10/23/18 105 20:02 10/23/18 98.1 19 96/59 (71) 92 20:01 10/23/18 3.0 30 16:30 10/23/18 Nasal 11:43 Cannula Intake and Output 10/22/18 10/22/18 10/23/18 1515:00 23:00 07:00 IntakeIntake Total 300 ml OutputOutput Total 1000 ml 800 ml BalanceBalance -1000 ml -500 ml Exam HEENT: Head is normocephalic. NECK: Supple. HEART: Regular rate. LUNGS: Show diminished breath sounds at the base. ABDOMEN: Soft, nontender to palpation without rebound or guarding. EXTREMITIES: Negative for clubbing, cyanosis. Positive edema on left upper, bilateral lower extremity. DERMATOLOGIC: No rashes. MUSCULOSKELETAL: No joint effusion. NEUROLOGIC: No change in exam. Results Result Diagram: 10/23/18 0610/23/18 0606 Results 24hrs Laboratory Tests Test 10/23/18 06:06 White Blood Count 4.5 L Red Blood Count 3.03 L Hemoglobin 9.6 L Hematocrit 30.6 L Mean Corpuscular Volume 101.0 Mean Corpuscular Hemoglobin 31.7 Mean Corpuscular Hemoglobin Concent 31.4 L Red Cell Distribution Width 17.7 H Platelet Count 227 Mean Platelet Volume 9.0 Immature Granulocytes % 0.400 Neutrophils % 43.8 Lymphocytes % 33.6 Monocytes % 14.6 H Eosinophils % 6.3 Basophils % 1.3 Nucleated Red Blood Cells % 0.0 Immature Granulocytes # 0.020 Neutrophils # 2.0 Lymphocytes # 1.5 Monocytes # 0.7 Eosinophils # 0.3 Basophils # 0.1 Nucleated Red Blood Cells # 0.0 Sodium Level 139 Potassium Level 3.8 Chloride Level 100 Carbon Dioxide Level 34 H Anion Gap 5 Blood Urea Nitrogen 15 Creatinine 0.77 Est Glomerular Filtrat Rate mL/min > 60 Glucose Level 92 Calcium Level 8.4 Phosphorus Level 4.1 Magnesium Level 1.7 Total Bilirubin 0.5 Direct Bilirubin 0.00 Indirect Bilirubin 0.5 Aspartate Amino Transf (AST/SGOT) 33 Alanine Aminotransferase (ALT/SGPT) 29 Alkaline Phosphatase 71 Total Protein 5.6 L Albumin 3.0 L Globulin 2.60 Albumin/Globulin Ratio 1.15 Medications Medication Current Medications Acetaminophen (Tylenol Tab) 650 mg Q4H PRN PO PAIN LEVEL 1-1010; Start 10/21/18 at 23:30 Amlodipine Besylate (Norvasc) 5 mg DAILY PO Last administered on 10/23/18at 09:51; Admin Dose 5 MG; Start 10/22/18 at 09:00 Anastrozole (Arimidex) 1 mg DAILY PO Last administered on 10/23/18at 10:05; Admin Dose 1 MG; Start 10/22/18 at 09:00 Benazepril HCl (Lotensin) 5 mg DAILY PO Last administered on 10/23/18at 09:51; Admin Dose 5 MG; Start 10/22/18 at 09:00 Bisacodyl (Dulcolax Supp) 10 mg Q8 [place] ; Start 10/22/18 at 06:00 Carvedilol (Coreg) 3.125 mg BID PO Last administered on 10/23/18 09:52; Admin Dose 3.125 MG; Start 10/22/18 at 09:00 Docusate Sodium (Colace) 100 mg BID PO ; Start 10/22/18 at 09:00 Escitalopram Oxalate (Lexapro) 10 mg DAILY PO Last administered on 10/23/18 09:50; Admin Dose 10 MG; Start 10/22/18 at 09:00 Albuterol/ Ipratropium (Duoneb) 3 ml Q8H RESP THERAPY HHN Last administered on 10/23/18 07:48; Admin Dose 3 ML; Start 10/22/18 at 00:00 Loratadine (Claritin) 10 mg DAILY PO Last administered on 10/23/18 09:51; Admin Dose 10 MG; Start 10/22/18 at 09:00 Magnesium Hydroxide (Milk Of Mag) 30 ml DAILY PO ; Start 10/22/18 at 09:00 Olopatadine HCl (Patanol 0.1% Oph) 1 drop BID BOTH EYES Last administered on 10/23/18 09:51; Admin Dose 1 DROP; Start 10/22/18 at 09:00 Oxycodone HCl (Oxycontin) 20 mg Q12 PO Last administered on 10/23/18 20:36; Admin Dose 20 MG; Start 10/22/18 at 09:00 Pantoprazole (Protonix Tab) 40 mg AC BREAKFAST PO Last administered on 10/23/18 at 06:50; Admin Dose 40 MG; Start 10/22/18 at 07:25 Polyethylene Glycol (Miralax) 17 gm DAILY PO ; Start 10/22/18 at 09:00 Simethicone (Mylicon) 80 mg Q8H PO Last administered on 10/23/18at 15:30; Admin Dose 80 MG; Start 10/21/18 at 23:30 Spironolactone (Aldactone) 50 mg DAILY PO Last administered on 10/23/18 09:51; Admin Dose 50 MG; Start 10/22/18 at 09:00 Zolpidem Tartrate (Ambien) 10 mg HS PRN PO INSOMNIA Last administered on 10/22/18 21:20; Admin Dose 10 MG; Start 10/21/18 at 23:30 Furosemide (Lasix) 40 mg BID DIURETICS IV Last administered on 10/23/18 18:28; Admin Dose 40 MG; Start 10/22/18 at 06:00 Morphine Sulfate (morphine) 2 mg Q4H PRN IV SEVERE PAIN LEVEL 7-10 Last administered on 10/23/18 14:15; Admin Dose 2 MG; Start 10/22/18 at 01:30 Potassium Chloride (Klor-Con 20) 20 meq BID PO Last administered on 10/23/18 20:34; Admin Dose 20 MEQ; Start 10/22/18 at 13:00 Albumin Human 100 ml @ 100 mls/hr Q8H IV Last administered on 10/23/18 20:35; Admin Dose 100 MLS/HR; Start 10/23/18 at 20:30; Stop 10/24/18 at 13:29 DES DUNAWAY MD October 23, 2018 22:05
--- NOTE | 2018-10-23 22:06 | CONS ---
Assessment/Plan Assessment/Plan Hospital Course (Demo Recall) METASTATIC BREAST CANCER WITH PRIMARY ADENOCARCINOMA IN the left breast. MULTIPLE BONY METS, PULMONARY METS, LIVER METS CHEMO ON HOLD PT HAS A VERY GOOD RESPONSE TO CHEMO AND AI CONT AI FOR NOW CT ABD FOR RESTAGING 08.27.18- noted , stable Leukopenia- post chemo, IMPROVING post NEUPOGEN monitor closely post Neutropenia with occasional fever and chills. - resolved Anemia chronic disease SOB PLEURAL EFFUSIONS, NEG CYTOLOGY POST thoracentesis Fluid overload diuretic cardiology consult Severe pain in the interscapular and lumbar sacral area most probably metastatic lesion possible femoral fracture. pathologic fracture of T9 with 60% of loss of height. Obesity. Weight loss 60 pounds during the last 2 years PMS. Myopia. Anxiety disorder. Claustrophobia. Posttraumatic stress disorder. Pain in the left forearm with a history of fracture of ulna and radius. Tachycardia Hypoxemia at night marginal improved after 2 L of nasal cannula oxygen. Deconditioning Pain syndrome. Today the most painful zone is in the right hip area. X-ray did not show any fractures. Hyponatremia- resolved Hypoalbuminemia Right sided cp after catheter insertion and correction less discomfort. Decreased edema both lower extremities with hypotension-improving Swelling of the left forearm-persist. VK LE 10/22/18 Consultation Date/Type/Reason Admit Date/Time October 21, 2018 at 17:39 Initial Consult Date 10/21/[address] [facility] Requesting Provider: RUSS JEROME MD Date/Time of Note DATE: 10/23/18 TIME: 22:05 24 HR Interval Summary Free Text/Dictation ALL NOTED AND + pain- bones and spine Exam/Review of Systems Exam Vitals Vital Signs Date Temp Pulse Resp B/P (MAP) Pulse Ox O2 O2 Flow FiO2 Time Delivery Rate 10/23/18 105 20:02 10/23/18 98.1 19 96/59 (71) 92 20:01 10/23/18 3.0 30 16:30 10/23/18 Nasal 11:43 Cannula Intake and Output 10/22/18 10/22/18 10/23/18 1515:00 23:00 07:00 IntakeIntake Total 300 ml OutputOutput Total 1000 ml 800 ml BalanceBalance -1000 ml -500 ml Exam HEENT: Head is normocephalic. NECK: Supple. HEART: Regular rate. LUNGS: Show diminished breath sounds at the base. ABDOMEN: Soft, nontender to palpation without rebound or guarding. EXTREMITIES: Negative for clubbing, cyanosis. Positive edema on left upper, bilateral lower extremity. DERMATOLOGIC: No rashes. MUSCULOSKELETAL: No joint effusion. NEUROLOGIC: No change in exam. Results Result Diagram: 10/23/18 0606 10/23/18 0606 Results 24hrs Laboratory Tests Test 10/23/18 06:06 White Blood Count 4.5 L Red Blood Count 3.03 L Hemoglobin 9.6 L Hematocrit 30.6 L Mean Corpuscular Volume 101.0 Mean Corpuscular Hemoglobin 31.7 Mean Corpuscular Hemoglobin Concent 31.4 L Red Cell Distribution Width 17.7 H Platelet Count 227 Mean Platelet Volume 9.0 Immature Granulocytes % 0.400 Neutrophils % 43.8 Lymphocytes % 33.6 Monocytes % 14.6 H Eosinophils % 6.3 Basophils % 1.3 Nucleated Red Blood Cells % 0.0 Immature Granulocytes # 0.020 Neutrophils # 2.0 Lymphocytes # 1.5 Monocytes # 0.7 Eosinophils # 0.3 Basophils # 0.1 Nucleated Red Blood Cells # 0.0 Sodium Level 139 Potassium Level 3.8 Chloride Level 100 Carbon Dioxide Level 34 H Anion Gap 5 Blood Urea Nitrogen 15 Creatinine 0.77 Est Glomerular Filtrat Rate mL/min > 60 Glucose Level 92 Calcium Level 8.4 Phosphorus Level 4.1 Magnesium Level 1.7 Total Bilirubin 0.5 Direct Bilirubin 0.00 Indirect Bilirubin 0.5 Aspartate Amino Transf (AST/SGOT) 33 Alanine Aminotransferase (ALT/SGPT) 29 Alkaline Phosphatase 71 Total Protein 5.6 L Albumin 3.0 L Globulin 2.60 Albumin/Globulin Ratio 1.15 Medications Medication Current Medications Acetaminophen (Tylenol Tab) 650 mg Q4H PRN PO PAIN LEVEL 1-10/10; Start 10/21/18 at 23:30 Amlodipine Besylate (Norvasc) 5 mg DAILY PO Last administered on 10/23/18at 09:51; Admin Dose 5 MG; Start 10/22/18 at 09:00 Anastrozole (Arimidex) 1 mg DAILY PO Last administered on 10/23/18at 10:05; Admin Dose 1 MG; Start 10/22/18 at 09:00 Benazepril HCl (Lotensin) 5 mg DAILY PO Last administered on 10/23/18at 09:51; Admin Dose 5 MG; Start 10/22/18 at 09:00 Bisacodyl (Dulcolax Supp) 10 mg Q8 MD ; Start 10/22/18 at 06:00 Carvedilol (Coreg) 3.125 mg BID PO Last administered on 10/23/18 09:52; Admin Dose 3.125 MG; Start 10/22/18 at 09:00 Docusate Sodium (Colace) 100 mg BID PO ; Start 10/22/18 at 09:00 Escitalopram Oxalate (Lexapro) 10 mg DAILY PO Last administered on 10/23/18 09:50; Admin Dose 10 MG; Start 10/22/18 at 09:00 Albuterol/ Ipratropium (Duoneb) 3 ml Q8H RESP THERAPY HHN Last administered on 10/23/18 07:48; Admin Dose 3 ML; Start 10/22/18 at 00:00 Loratadine (Claritin) 10 mg DAILY PO Last administered on 10/23/18 09:51; Admin Dose 10 MG; Start 10/22/18 at 09:00 Magnesium Hydroxide (Milk Of Mag) 30 ml DAILY PO ; Start 10/22/18 at 09:00 Olopatadine HCl (Patanol 0.1% Oph) 1 drop BID BOTH EYES Last administered on 10/23/18 09:51; Admin Dose 1 DROP; Start 10/22/18 at 09:00 Oxycodone HCl (Oxycontin) 20 mg Q12 PO Last administered on 10/23/18 20:36; Admin Dose 20 MG; Start 10/22/18 at 09:00 Pantoprazole (Protonix Tab) 40 mg AC BREAKFAST PO Last administered on 06:50; Admin Dose 40 MG; Start 10/22/18 at 07:25 Polyethylene Glycol (Miralax) 17 gm DAILY PO ; Start 10/22/18 at 09:00 Simethicone (Mylicon) 80 mg Q8H PO Last administered on 10/23/18 15:30; Admin Dose 80 MG; Start 10/21/18 at 23:30 Spironolactone (Aldactone) 50 mg DAILY PO Last administered on 10/23/18 09:51; Admin Dose 50 MG; Start 10/22/18 at 09:00 Zolpidem Tartrate (Ambien) 10 mg HS PRN PO INSOMNIA Last administered on 10/22/18 21:20; Admin Dose 10 MG; Start 10/21/18 at 23:30 Furosemide (Lasix) 40 mg BID DIURETICS IV Last administered on 10/23/18 18:28; Admin Dose 40 MG; Start 10/22/18 at 06:00 Morphine Sulfate (morphine) 2 mg Q4H PRN IV SEVERE PAIN LEVEL 7-10 Last administered on 10/23/18 14:15; Admin Dose 2 MG; Start 10/22/18 at 01:30 Potassium Chloride (Klor-Con 20) 20 meq BID PO Last administered on 10/23/18 20:34; Admin Dose 20 MEQ; Start 10/22/18 at 13:00 Albumin Human 100 ml @ 100 mls/hr Q8H IV Last administered on 10/23/18 20:35; Admin Dose 100 MLS/HR; Start 10/23/18 at 20:30; Stop 10/24/18 at 13:29 DES DUNAWAY MD October 23, 2018 22:06
[2018-10-24] VITALS (13 sets, daily range): BP systolic 94–105; BP diastolic 50–59; PULSE 87–97; RESP 16–19
[2018-10-24] MEDS: ALBUMIN HUMAN 25% 100 ML IV SCH ×3 (03:45→23:26)
[2018-10-24] MEDS: BISACODYL 10 MG SUPP PR SCH ×3 (05:57→22:00)
[2018-10-24] MEDS: PANTOPRAZOLE (EC) 40 MG TAB PO SCH (06:34)
[2018-10-24] MEDS: FUROSEMIDE 40 MG INJ IV SCH ×2 (06:38→17:48)
[2018-10-24] MEDS: ALBUTEROL/IPRATROPIUM (NEB) 3 ML AMP HHN SCH ×3 (08:00→16:00)
[2018-10-24] MEDS: ESCITALOPRAM 10 MG TAB PO SCH (08:42)
[2018-10-24] MEDS: OLOPATADINE 0.1% 5 ML OPH BOTH EYES SCH ×2 (08:42→22:09)
[2018-10-24] MEDS: MAGNESIUM HYDROXIDE 30ML CUP PO SCH (08:42)
[2018-10-24] MEDS: DOCUSATE SODIUM 100 MG CAP PO SCH ×2 (08:43→22:10)
[2018-10-24] MEDS: POTASSIUM CHLORIDE (SR) 20 MEQ TAB PO SCH ×2 (08:43→22:11)
[2018-10-24] MEDS: LORATADINE 10 MG TAB PO SCH (08:43)
[2018-10-24] MEDS: AMLODIPINE 5 MG TAB PO SCH (08:44)
[2018-10-24] MEDS: SPIRONOLACTONE 50 MG TAB PO SCH (08:44)
[2018-10-24] MEDS: BENAZEPRIL 5 MG TAB PO SCH (08:44)
[2018-10-24] MEDS: ANASTROZOLE 1 MG TAB PO SCH (08:46)
[2018-10-24] MEDS: POLYETHYLENE GLYCOL 17 GM PACKET PO SCH (08:48)
[2018-10-24] MEDS: oxyCODONE (CR) 20 MG TAB [oxyCONTIN] PO SCH ×2 (08:55→22:11)
[2018-10-24] MEDS ORDERED: METOLAZONE 5 MG TAB PO ONE (10:00)
--- NOTE | 2018-10-24 10:52 | PN ---
DATE: 10/24/2018 SUBJECTIVE: The patient is stable. The patient's urinary output is improved. No other events noted . OBJECTIVE: VITAL SIGNS: Blood pressure is 95/68, respirations 16, pulse 89, temperature 98.0. HEENT: Head is normocephalic. NECK: Supple. HEART: Regular rate. LUNGS: Show diminished breath sounds at the base. ABDOMEN: Soft, nontender to palpation. No rebound or guarding. EXTREMITIES: Negative for clubbing, cyanosis, positive edema. DERMATOLOGIC: No rashes. MUSCULOSKELETAL: No joint effusion. NEUROLOGIC: No change in exam. MEDICATIONS: Reviewed. LABORATORY DATA: Reviewed. ASSESSMENT AND PLAN: 1. Acute hypoxemic respiratory failure, etiology is secondary to bilateral effusions. The patient i s status post thoracentesis. Continue to monitor. 2. Volume overload. Etiology is multifactorial secondary to diastolic heart failure. Unclear if th ere is component of portal hypertension due to metastatic disease to the liver, possible lymphangitic spread. Continue Lasix, continue metolazone, monitor electrolytes and volume status closely. 3. Anemia. Monitor hemoglobin and hematocrit levels. 4. Breast cancer with no metastasis. Continue to monitor. Follow up with Oncology. 5. Hip fracture status post arthroplasty. Continue physical therapy. 6. Pleural effusion status post thoracentesis. 7. Chronic pain syndrome. 8. History of leukemia, improved. 9. Hypertension. Continue current blood pressure regimen. Dictated By: ANDRÉS YO/NTS Conf#: [id number] DID#: [id number] CC: RUSS JEROME MD;*EndCC*
--- NOTE | 2018-10-24 13:50 | RADRPT ---
Echocardiogram Report Patient Name: LEANA VILLEDAPatient ID: [id number] : 1960 (58y 6m)Study Date: 10/24/2018 7:34:50 AM Gender: FAccession #: [id number] Tech: [place] Location: Ref.Physician: KAMILA HURTADO Height(Cm): BSA: Weight(Kg): Quality: GoodAccount #: Procedures: Echocardiographic Report: Transthoracic echocardiogram examination. Indications: Pericardial Effusion. Findings: Left Ventricle: The left ventricular ejection fraction is visually estimated at 60 %. Pericardium: Small pericardial effusion. IVC: Dilated inferior vena cava with normal respiratory collapse. Conclusions: The left ventricular ejection fraction is visually estimated at 60 %. Small pericardial effusion. Dilated inferior vena cava with normal respiratory collapse. Electronically Signed By: Kamila Hurtado 2018-10-24 13:50:03 PDT
--- NOTE | 2018-10-24 14:39 | PN ---
Date/Time of Note Date/Time of Note DATE: 10/24/18 TIME: 14:39 Assessment/Plan VTE Prophylaxis Risk score (from Ns)>0 risk: 7 SCD applied (from Ns): No SCD contraindicated: other Pharmacological prophylaxis: LMWH Lines/Catheters IV Catheter Type (from [facility]): [place] [employer] [facility] line still needed: No Urinary Cath still in place: No Reason Cath still needed: urinary retention Assessment/Plan Assessment/Plan 1. PRIMARY ADENOCARCINOMA of the left breast. MULTIPLE BONY METS, PULMONARY METS;LIVER METS CHEMO ON HOLD; PT HAS A VERY GOOD RESPONSE TO CHEMO AND AI 2. Severe pain in the interscapular and lumbar sacral area most probably metastatic lesion possible femoral fracture. pathologic fracture of T9 with 60% of loss of height. Neurosurgical f/u. 3. Obesity. 4. Weight loss 60 pounds during the last 2 years by diet 5. PMS. 6. Myopia. 7. Anemia chronic disease with a drop of her hematocrit to 27; Latest results 28. Will recheck tomorrow;Leukopenia.Thrombocytopenia; 8. Anxiety disorder. Claustrophobia. Increase Ativan to 1 mg every 8 as needed at Lexapro 10 mg daily. 9. Posttraumatic stress disorder. 10. Pain in the left forearm with a history of fracture of ulna and radius. 11. Tachycardia 12. Hypoxemia at night marginal improved after 2 L of nasal cannula oxygen. 13. Deconditioning 14. 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 MRI: 09/28/18:diffuse osseous metastatic disease with multiple pathologic compression fractures at least involving the T4, T5, T7, T9 and T11 levels. There is likely mild cortical breakthrough at several levels resulting in mild central canal narrowing. No gross evidence of cord compression is seen.. 15. Pain syndrome. Today the most painful zone is in the right hip area. 16. Hyponatremia-corrected; hypokalemia now hyperkalemic 5.2 hold potassium p.o. today and hold Aldactone today.Recheck and sodium chloride daily with the dose to 4 mg today 17. Leucopenia-improved. 18. Neutropenia with occasional fever and chills. Last chemotherapy 5 days ago. 19. Hypoalbuminemia. 20.Right sided cp after catheter insertion and correction less discomfort. 21. Decreased edema both lower extremities with ljggpshidgw-yuceoshby-Hllkewuu with Pleural and Pericardial effusion. 22. pain syndrome 23.bilateral pleural effusions ; s/p left thoracentesis, During the procedure the probe of the u/s was placed to the right side of the chest which showed only minimal amount of liquid on the right pleural cavity. Reaccumulation of the pleural fluid. Plan to tap from the right side tomorrow a.m. 24. Systolic over diastolic congestive heart failure with a right more than left lower extremity swelling with no DVT in latest venous Doppler. 25. Swelling of the left forearm-persist. Cellulitis of the left forearm with increased edema anteriorly.-Today it is less edematous 26. Pathologic fracture of the right hip;s/p hemiarthroplasty of right hip . 27. Dizziness 28. Chills. 29. Memory impairment. Result Diagram: 10/24/18 0759 10/24/18 0759 Results 24hrs Laboratory Tests Test 10/24/18 07:59 White Blood Count 3.9 L Red Blood Count 2.92 L Hemoglobin 9.3 L Hematocrit 29.3 L Mean Corpuscular Volume 100.3 Mean Corpuscular Hemoglobin 31.8 Mean Corpuscular Hemoglobin Concent 31.7 L Red Cell Distribution Width 17.6 H Platelet Count 187 Mean Platelet Volume 8.9 Immature Granulocytes % 0.300 Neutrophils % 46.7 Lymphocytes % 33.8 Monocytes % 12.3 H Eosinophils % 5.9 Basophils % 1.0 Nucleated Red Blood Cells % 0.0 Immature Granulocytes # 0.010 Neutrophils # 1.8 Lymphocytes # 1.3 Monocytes # 0.5 Eosinophils # 0.2 Basophils # 0.0 Nucleated Red Blood Cells # 0.0 Sodium Level 137 Potassium Level 4.0 Chloride Level 97 Carbon Dioxide Level 32 H Anion Gap 8 Blood Urea Nitrogen 25 H Creatinine 0.98 Est Glomerular Filtrat Rate mL/min 58 L Glucose Level 94 Calcium Level 8.7 Phosphorus Level 5.2 H Magnesium Level 1.8 Subjective 24 Hr Interval Summary Free Text/Dictation SOB improving. I am able to walk better. It is very difficult for me to get up a long time to see down without help. But I am able to manage. No for fever and chills. Constitutional: chills, diaphoresis, poor po; No no complaints, No improved, No disoriented, No febrile, No requiring IVF, No requiring O2, No other ENT: congestion, dysphagia; No no complaints, No bleeding, No pain, No discharge, No sore throat, No other Respiratory: cough; No no complaints, No pain, No pleuritic pain, No shortness of breath, No sputum, No wheezing, No other Cardiovascular: edema, lightheadedness, orthopenea, palpitations; No no complaints, No chest pain, No paroxysmal nocturnal dyspnea, No other Gastrointestinal: constipation, decreased appetite, flatus, nausea, passing stool; No no complaints, No pain, No blood, No diarrhea, No vomiting, No other Genitourinary: dysuria; No no complaints, No bleeding, No discharge, No flank pain, No hematuria, No other Musculoskeletal: bone/joint pain, neck pain Exam/Review of Systems Exam Vitals Vital Signs Date Temp Pulse Resp B/P (MAP) Pulse Ox O2 O2 Flow FiO2 Time Delivery Rate 10/24/18 88 12:30 10/24/18 98.3 18 97/59 (72) 98 Nasal 11:12 Cannula 10/24/18 2.0 08:19 10/23/18 30 16:30 Intake and Output 10/23/18 10/23/18 10/24/18 1515:00 23:00 07:00 IntakeIntake Total 100 ml 350 ml BalanceBalance 100 ml 350 ml Constitutional: alert, oriented, well developed, distress, frail Psych: anxiety; No no complaints, No nl mood/affect, No confusion, No depression, No suicidal, No other Head: normocephalic, atraumatic; No lacerations, No hematomas, No other Eyes: EOMI, nl lids, PERRL, icteric; No nl conjunctiva, No nl sclera, No fundi, disc, No other ENMT: No nl external ears & nose, No nl lips & teeth, No nl nasal mucosa & septum, No mucosa pink and moist, No intubated, No tympanic membranes, No other Neck: jvd, bruits; No supple, No non-tender, No masses, No thyromegaly, No nuchal rigidity, No other Respiratory: normal air movement, congested cough; No clear to auscultation, No crackles/rales, No diminished breath sounds, No intercostal retraction, No labored breathing, No respirations, No tactile fremitus, No wheezing, No other Cardiovascular: regular rate and rhythm, nl pulses, bruits, edema (2+ im aterally.), gallop, systolic murmur; No diastolic murmur, No irregular rhythm, No jugular venous distention (JVD), No murmurs/extra sounds, No rub, No S3, No S4, No other Gastrointestinal: nl liver, spleen, bowel sounds, distended; No soft, No non-tender, No ascites, No firm, No hepatomegaly, No mass, No rebound or guarding, No splenomegaly, No surgical scars, No tender, No other Musculoskeletal: joint tenderness, muscle tone, muscle weakness; No nl extremities to inspection, No nl gait and stance, No range of motion, No spine non-tender, No swelling, No other Extremities: No normal pulses, No calf tenderness, No cyanosis, No clubbing, No edema, No pitting pedal edema, No palpable cord, No tenderness, No other 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: [employer] 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, nl mental status; No nl speech, No nl strength, No confused, No DTR's symmetric, No focal weakness, No lethargic, No numbness, No reflexes, No unresponsive, No other Results Results 24hrs Laboratory Tests Test 10/24/18 07:59 White Blood Count 3.9 L Red Blood Count 2.92 L Hemoglobin 9.3 L Hematocrit 29.3 L Mean Corpuscular Volume 100.3 Mean Corpuscular Hemoglobin 31.8 Mean Corpuscular Hemoglobin Concent 31.7 L Red Cell Distribution Width 17.6 H Platelet Count 187 Mean Platelet Volume 8.9 Immature Granulocytes % 0.300 Neutrophils % 46.7 Lymphocytes % 33.8 Monocytes % 12.3 H Eosinophils % 5.9 Basophils % 1.0 Nucleated Red Blood Cells % 0.0 Immature Granulocytes # 0.010 Neutrophils # 1.8 Lymphocytes # 1.3 Monocytes # 0.5 Eosinophils # 0.2 Basophils # 0.0 Nucleated Red Blood Cells # 0.0 Sodium Level 137 Potassium Level 4.0 Chloride Level 97 Carbon Dioxide Level 32 H Anion Gap 8 Blood Urea Nitrogen 25 H Creatinine 0.98 Est Glomerular Filtrat Rate mL/min 58 L Glucose Level 94 Calcium Level 8.7 Phosphorus Level 5.2 H Magnesium Level 1.8 Medications Medication Current Medications Acetaminophen (Tylenol Tab) 650 mg Q4H PRN PO PAIN LEVEL 1-1010; Start 10/21/18 at 23:30 Amlodipine Besylate (Norvasc) 5 mg DAILY PO Last administered on 10/23/18 09:51; Admin Dose 5 MG; Start 10/22/18 at 09:00 Anastrozole (Arimidex) 1 mg DAILY PO Last administered on 10/24/18 08:46; Admin Dose 1 MG; Start 10/22/18 at 09:00 Benazepril HCl (Lotensin) 5 mg DAILY PO Last administered on 10/23/18 09:51; Admin Dose 5 MG; Start 10/22/18 at 09:00 Bisacodyl (Dulcolax Supp) 10 mg Q8 OR ; Start 10/22/18 at 06:00 Carvedilol (Coreg) 3.125 mg BID PO Last administered on 10/23/18 22:21; Admin Dose 3.125 MG; Start 10/22/18 at 09:00 Docusate Sodium (Colace) 100 mg BID PO Last administered on 10/24/18 08:43; Admin Dose 100 MG; Start 10/22/18 at 09:00 Escitalopram Oxalate (Lexapro) 10 mg DAILY PO Last administered on 10/24/18 08:42; Admin Dose 10 MG; Start 10/22/18 at 09:00 Albuterol/ Ipratropium (Duoneb) 3 ml Q8H RESP THERAPY HHN Last administered on 10/23/18 07:48; Admin Dose 3 ML; Start 10/22/18 at 00:00 Loratadine (Claritin) 10 mg DAILY PO Last administered on 10/24/18 08:43; Admin Dose 10 MG; Start 10/22/18 at 09:00 Magnesium Hydroxide (Milk Of Mag) 30 ml DAILY PO Last administered on 10/24/18 08:42; Admin Dose 30 ML; Start 10/22/18 at 09:00 Olopatadine HCl (Patanol 0.1% Oph) 1 drop BID BOTH EYES Last administered on 10/23/18 09:51; Admin Dose 1 DROP; Start 10/22/18 at 09:00 Oxycodone HCl (Oxycontin) 20 mg Q12 PO Last administered on 10/24/18 08:55; Admin Dose 20 MG; Start 10/22/18 at 09:00 Pantoprazole (Protonix Tab) 40 mg AC BREAKFAST PO Last administered on 10/24/18 06:34; Admin Dose 40 MG; Start 10/22/18 at 07:25 Polyethylene Glycol (Miralax) 17 gm DAILY PO ; Start 10/22/18 at 09:00 Simethicone (Mylicon) 80 mg Q8H PO Last administered on 10/24/18 06:34; Admin Dose 80 MG; Start 10/21/18 at 23:30 Spironolactone (Aldactone) 50 mg DAILY PO Last administered on 10/24/18 08:44; Admin Dose 50 MG; Start 10/22/18 at 09:00 Zolpidem Tartrate (Ambien) 10 mg HS PRN PO INSOMNIA Last administered on 21:20; Admin Dose 10 MG; Start 10/21/18 at 23:30 Furosemide (Lasix) 40 mg BID DIURETICS IV Last administered on 10/24/18 06:38; Admin Dose 40 MG; Start 10/22/18 at 06:00 Morphine Sulfate (morphine) 2 mg Q4H PRN IV SEVERE PAIN LEVEL 7-10 Last administered on 10/23/18 14:15; Admin Dose 2 MG; Start 10/22/18 at 01:30 Potassium Chloride (Klor-Con 20) 20 meq BID PO Last administered on 10/24/18 08:43; Admin Dose 20 MEQ; Start 10/22/18 at 13:00 RUSS JEROME MD October 24, 2018 14:39
--- NOTE | 2018-10-24 19:09 | RADRPT ---
Vent Rate: 88 bpm RR Interval: 680 msec ME Interval: 207 msec QRS Duration: 87 msec QT Interval: 380 msec QTC Interval: 461 msec P-R-T G[place]: 29 - -10 - 31 degrees Sinus rhythm...normal P axis, V-rate 50- 99 Borderline prolonged ME interval...ME >202, V-rate 50- 90 Low voltage, extremity and precordial leads...extremity<0.5mV, precordial<1.0mV Electronically Signed By: Silvino Hernandez
--- NOTE | 2018-10-24 20:00 | CONS ---
Assessment/Plan Assessment/Plan Hospital Course (Demo Recall) IMPRESSION: 1. Congestive heart failure exacerbation would be diastolic, acute on chronic by most recent echo.-now s/p echo this admit with EF 60/small effusion 2. Abnormal electrocardiogram with low voltage, rule out pericardial effusion. 3. Hypertension-currently borderline hypotension 4. Metastatic breast carcinoma. 5. History of pathologic fractures of the leg, status post open reduction and internal fixation. 6. Anemia. 7. Increased BNP consistent with patient's congestive heart failure. 8. Pericardial effusion-small by echo Recc: -Tele -Continue lasix/aldactone -s/p IV albumin doses with improvement -will decrease doses of antihypertenives as they are being held due to low BP -follow K clsoely Consultation Date/Type/Reason Admit Date/Time October 21, 2018 at 17:39 Initial Consult Date 10/21/18 Type of Consult Cardiology Reason for Consultation CHF Requesting Provider: RUSS JEROME MD Date/Time of Note DATE: 10/24/18 TIME: 19:56 Exam/Review of Systems Vital Signs Vitals Vital Signs Date Temp Pulse Resp B/P (MAP) Pulse Ox O2 O2 Flow FiO2 Time Delivery Rate 10/24/18 98.1 92 18 94/50 (65) 94 19:52 10/24/18 Room Air 15:47 10/24/18 2.0 08:19 10/23/18 30 16:30 Intake and Output 10/23/18 10/23/18 10/24/18 1414:59 22:59 06:59 IntakeIntake Total 100 ml 350 ml BalanceBalance 100 ml 350 ml Exam Exam Review of Systems: CONSTITUTIONAL: No fevers, chills. PULMONARY: No sob CARDIOVASCULAR: No chest pain/palpitations GASTROINTESTINAL: No nausea/vomiting. GENITOURINARY: No hematuria/dysuria. MUSCULOSKELETAL: No myagias/arthalgias. PSYCHIATRIC: The patient denies depression. NEUROLOGIC: No weakness Constitutional: alert, oriented Psych: no complaints Head: normocephalic ENMT: mucosa pink and moist Neck: supple, jvd (9 cm water) Respiratory: diminished breath sounds Cardiovascular: regular rate and rhythm Gastrointestinal: soft, non-tender Musculoskeletal: muscle tone (normal) Extremities: pitting pedal edema (bilateral) 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: other (No focal deficits) Labs Result Diagram: 10/24/18 0759 10/24/18 0759 Results 24hrs Laboratory Tests Test 10/24/18 07:59 White Blood Count 3.9 L Red Blood Count 2.92 L Hemoglobin 9.3 L Hematocrit 29.3 L Mean Corpuscular Volume 100.3 Mean Corpuscular Hemoglobin 31.8 Mean Corpuscular Hemoglobin Concent 31.7 L Red Cell Distribution Width 17.6 H Platelet Count 187 Mean Platelet Volume 8.9 Immature Granulocytes % 0.300 Neutrophils % 46.7 Lymphocytes % 33.8 Monocytes % 12.3 H Eosinophils % 5.9 Basophils % 1.0 Nucleated Red Blood Cells % 0.0 Immature Granulocytes # 0.010 Neutrophils # 1.8 Lymphocytes # 1.3 Monocytes # 0.5 Eosinophils # 0.2 Basophils # 0.0 Nucleated Red Blood Cells # 0.0 Sodium Level 137 Potassium Level 4.0 Chloride Level 97 Carbon Dioxide Level 32 H Anion Gap 8 Blood Urea Nitrogen 25 H Creatinine 0.98 Est Glomerular Filtrat Rate mL/min 58 L Glucose Level 94 Calcium Level 8.7 Phosphorus Level 5.2 H Magnesium Level 1.8 Medications Medications Current Medications Acetaminophen (Tylenol Tab) 650 mg Q4H PRN PO PAIN LEVEL 1-10/10; Start 10/21/18 at 23:30 Amlodipine Besylate (Norvasc) 5 mg DAILY PO Last administered on 10/23/18 09:51; Admin Dose 5 MG; Start 10/22/18 at 09:00 Anastrozole (Arimidex) 1 mg DAILY PO Last administered on 10/24/18 08:46; Admin Dose 1 MG; Start 10/22/18 at 09:00 Benazepril HCl (Lotensin) 5 mg DAILY PO Last administered on 10/23/18 09:51; Admin Dose 5 MG; Start 10/22/18 at 09:00 Bisacodyl (Dulcolax Supp) 10 mg Q8 SD Last administered on 10/24/18 16:03; Admin Dose 10 MG; Start 10/22/18 at 06:00 Carvedilol (Coreg) 3.125 mg BID PO Last administered on 10/23/18 22:21; Admin Dose 3.125 MG; Start 10/22/18 at 09:00 Docusate Sodium (Colace) 100 mg BID PO Last administered on 10/24/18 08:43; Admin Dose 100 MG; Start 10/22/18 at 09:00 Escitalopram Oxalate (Lexapro) 10 mg DAILY PO Last administered on 10/24/18 08:42; Admin Dose 10 MG; Start 10/22/18 at 09:00 Albuterol/ Ipratropium (Duoneb) 3 ml Q8H RESP THERAPY HHN Last administered on 10/23/18 07:48; Admin Dose 3 ML; Start 10/22/18 at 00:00 Loratadine (Claritin) 10 mg DAILY PO Last administered on 10/24/18 08:43; Admin Dose 10 MG; Start 10/22/18 at 09:00 Magnesium Hydroxide (Milk Of Mag) 30 ml DAILY PO Last administered on 10/24/18 08:42; Admin Dose 30 ML; Start 10/22/18 at 09:00 Olopatadine HCl (Patanol 0.1% Oph) 1 drop BID BOTH EYES Last administered on 10/23/18 09:51; Admin Dose 1 DROP; Start 10/22/18 at 09:00 Oxycodone HCl (Oxycontin) 20 mg Q12 PO Last administered on 10/24/18 08:55; Admin Dose 20 MG; Start 10/22/18 at 09:00 Pantoprazole (Protonix Tab) 40 mg AC BREAKFAST PO Last administered on 10/24/18 06:34; Admin Dose 40 MG; Start 10/22/18 at 07:25 Polyethylene Glycol (Miralax) 17 gm DAILY PO ; Start 10/22/18 at 09:00 Simethicone (Mylicon) 80 mg Q8H PO Last administered on 10/24/18 16:03; Admin Dose 80 MG; Start 10/21/18 at 23:30 Spironolactone (Aldactone) 50 mg DAILY PO Last administered on 10/24/18 08:44; Admin Dose 50 MG; Start 10/22/18 at 09:00 Zolpidem Tartrate (Ambien) 10 mg HS PRN PO INSOMNIA Last administered on 10/22/18 21:20; Admin Dose 10 MG; Start 10/21/18 at 23:30 Furosemide (Lasix) 40 mg BID DIURETICS IV Last administered on 10/24/18 06:38; Admin Dose 40 MG; Start 10/22/18 at 06:00 Morphine Sulfate (morphine) 2 mg Q4H PRN IV SEVERE PAIN LEVEL 7-10 Last administered on 10/23/18at 14:15; Admin Dose 2 MG; Start 10/22/18 at 01:30 Potassium Chloride (Klor-Con 20) 20 meq BID PO Last administered on 10/24/18at 08:43; Admin Dose 20 MEQ; Start 10/22/18 at 13:00 KAMILA TERESA October 24, 2018 20:00
--- NOTE | 2018-10-24 21:32 | CONS ---
Assessment/Plan Assessment/Plan Hospital Course (Demo Recall) METASTATIC BREAST CANCER WITH PRIMARY ADENOCARCINOMA IN the left breast. MULTIPLE BONY METS, PULMONARY METS, LIVER METS CHEMO ON HOLD PT HAS A VERY GOOD RESPONSE TO CHEMO AND AI CONT AI FOR NOW CT ABD FOR RESTAGING 08.27.18- noted , stable Leukopenia- post chemo, IMPROVING post NEUPOGEN monitor closely post Neutropenia with occasional fever and chills. - resolved Anemia chronic disease SOB PLEURAL EFFUSIONS, NEG CYTOLOGY POST thoracentesis Fluid overload diuretic cardiology F-UP Severe pain in the interscapular and lumbar sacral area most probably metastatic lesion possible femoral fracture. pathologic fracture of T9 with 60% of loss of height. Bony pain with multiple bony mets post XRT dr Ocampo reeval Obesity. Weight loss 60 pounds during the last 2 years PMS. Myopia. Anxiety disorder. Claustrophobia. Posttraumatic stress disorder. Pain in the left forearm with a history of fracture of ulna and radius. Tachycardia Hypoxemia at night marginal improved after 2 L of nasal cannula oxygen. Deconditioning Pain syndrome. Today the most painful zone is in the right hip area. X-ray did not show any fractures. Hyponatremia- resolved Hypoalbuminemia Right sided cp after catheter insertion and correction less discomfort. Decreased edema both lower extremities with hypotension-improving Swelling of the left forearm-persist. Consultation Date/Type/Reason Admit Date/Time October 21, 2018 at 17:39 Initial Consult Date 10/21/18 Type of Consult [facility] Requesting Provider: RUSS JEROME MD Date/Time of Note DATE: 10/24/18 TIME: 21:26 24 HR Interval Summary Free Text/Dictation all noted sl better Exam/Review of Systems Exam Vitals Vital Signs Date Temp Pulse Resp B/P (MAP) Pulse Ox O2 O2 Flow FiO2 Time Delivery Rate 10/24/18 93 20:00 10/24/18 98.1 18 94/50 (65) 94 19:52 10/24/18 Room Air 15:47 10/24/18 2.0 08:19 10/23/18 30 16:30 Intake and Output 10/23/18 10/23/18 10/24/18 1515:00 23:00 07:00 IntakeIntake Total 100 ml 350 ml BalanceBalance 100 ml 350 ml Exam HEENT: Head is normocephalic. NECK: Supple. HEART: Regular rate. LUNGS: Show diminished breath sounds at the base. ABDOMEN: Soft, nontender to palpation. No rebound or guarding. EXTREMITIES: Negative for clubbing, cyanosis, positive edema. DERMATOLOGIC: No rashes. MUSCULOSKELETAL: No joint effusion. NEUROLOGIC: No change in exam. Results Result Diagram: 10/24/18 0759 10/24/18 0759 Results 24hrs Laboratory Tests Test 10/24/18 07:59 White Blood Count 3.9 L Red Blood Count 2.92 L Hemoglobin 9.3 L Hematocrit 29.3 L Mean Corpuscular Volume 100.3 Mean Corpuscular Hemoglobin 31.8 Mean Corpuscular Hemoglobin Concent 31.7 L Red Cell Distribution Width 17.6 H Platelet Count 187 Mean Platelet Volume 8.9 Immature Granulocytes % 0.300 Neutrophils % 46.7 Lymphocytes % 33.8 Monocytes % 12.3 H Eosinophils % 5.9 Basophils % 1.0 Nucleated Red Blood Cells % 0.0 Immature Granulocytes # 0.010 Neutrophils # 1.8 Lymphocytes # 1.3 Monocytes # 0.5 Eosinophils # 0.2 Basophils # 0.0 Nucleated Red Blood Cells # 0.0 Sodium Level 137 Potassium Level 4.0 Chloride Level 97 Carbon Dioxide Level 32 H Anion Gap 8 Blood Urea Nitrogen 25 H Creatinine 0.98 Est Glomerular Filtrat Rate mL/min 58 L Glucose Level 94 Calcium Level 8.7 Phosphorus Level 5.2 H Magnesium Level 1.8 Medications Medication Current Medications Acetaminophen (Tylenol Tab) 650 mg Q4H PRN PO PAIN LEVEL 1-10/10; Start 10/21/18 at 23:30 Anastrozole (Arimidex) 1 mg DAILY PO Last administered on 10/24/18at 08:46; Admin Dose 1 MG; Start 10/22/18 at 09:00 Benazepril HCl (Lotensin) 5 mg DAILY PO Last administered on 10/23/18at 09:51; Admin Dose 5 MG; Start 10/22/18 at 09:00 Bisacodyl (Dulcolax Supp) 10 mg Q8 NH Last administered on 10/24/18at 16:03; Admin Dose 10 MG; Start 10/22/18 at 06:00 Carvedilol (Coreg) 3.125 mg BID PO Last administered on 10/23/18at 22:21; Admin Dose 3.125 MG; Start 10/22/18 at 09:00 Docusate Sodium (Colace) 100 mg BID PO Last administered on 10/24/18 08:43; Admin Dose 100 MG; Start 10/22/18 at 09:00 Escitalopram Oxalate (Lexapro) 10 mg DAILY PO Last administered on 10/24/18 08:42; Admin Dose 10 MG; Start 10/22/18 at 09:00 Albuterol/ Ipratropium (Duoneb) 3 ml Q8H RESP THERAPY HHN Last administered on 10/23/18 07:48; Admin Dose 3 ML; Start 10/22/18 at 00:00 Loratadine (Claritin) 10 mg DAILY PO Last administered on 10/24/18 08:43; Admin Dose 10 MG; Start 10/22/18 at 09:00 Magnesium Hydroxide (Milk Of Mag) 30 ml DAILY PO Last administered on 10/24/18 08:42; Admin Dose 30 ML; Start 10/22/18 at 09:00 Olopatadine HCl (Patanol 0.1% Oph) 1 drop BID BOTH EYES Last administered on 10/23/18 09:51; Admin Dose 1 DROP; Start 10/22/18 at 09:00 Oxycodone HCl (Oxycontin) 20 mg Q12 PO Last administered on 10/24/18 08:55; Admin Dose 20 MG; Start 10/22/18 at 09:00 Pantoprazole (Protonix Tab) 40 mg AC BREAKFAST PO Last administered on 10/24/18 06:34; Admin Dose 40 MG; Start 10/22/18 at 07:25 Polyethylene Glycol (Miralax) 17 gm DAILY PO ; Start 10/22/18 at 09:00 Simethicone (Mylicon) 80 mg Q8H PO Last administered on 10/24/18 16:03; Admin Dose 80 MG; Start 10/21/18 at 23:30 Spironolactone (Aldactone) 50 mg DAILY PO Last administered on 10/24/18 08:44; Admin Dose 50 MG; Start 10/22/18 at 09:00 Zolpidem Tartrate (Ambien) 10 mg HS PRN PO INSOMNIA Last administered on 10/22/18 21:20; Admin Dose 10 MG; Start 10/21/18 at 23:30 Furosemide (Lasix) 40 mg BID DIURETICS IV Last administered on 10/24/18 06:38; Admin Dose 40 MG; Start 10/22/18 at 06:00 Morphine Sulfate (morphine) 2 mg Q4H PRN IV SEVERE PAIN LEVEL 7-10 Last administered on 10/23/18 14:15; Admin Dose 2 MG; Start 10/22/18 at 01:30 Potassium Chloride (Klor-Con 20) 20 meq BID PO Last administered on 10/24/18 08:43; Admin Dose 20 MEQ; Start 10/22/18 at 13:00 DES DUNAWAY MD October 24, 2018 21:32
[2018-10-25] VITALS (11 sets, daily range): BP systolic 105–140; BP diastolic 56–83; PULSE 85–94; RESP 18–20
[2018-10-25] MEDS: BISACODYL 10 MG SUPP PR SCH ×3 (05:54→22:00)
[2018-10-25] MEDS: PANTOPRAZOLE (EC) 40 MG TAB PO SCH (05:55)
[2018-10-25] MEDS: ALBUMIN HUMAN 25% 100 ML IV SCH ×2 (05:55→15:41)
[2018-10-25] MEDS: FUROSEMIDE 40 MG INJ IV SCH ×2 (06:00→18:13)
[2018-10-25] MEDS: ALBUTEROL/IPRATROPIUM (NEB) 3 ML AMP HHN SCH ×3 (08:00→23:50)
[2018-10-25] MEDS: BENAZEPRIL 5 MG TAB PO SCH (08:47)
[2018-10-25] MEDS: POTASSIUM CHLORIDE (SR) 20 MEQ TAB PO SCH ×2 (08:49→20:40)
[2018-10-25] MEDS: LORATADINE 10 MG TAB PO SCH (08:49)
[2018-10-25] MEDS: ESCITALOPRAM 10 MG TAB PO SCH (08:49)
[2018-10-25] MEDS: oxyCODONE (CR) 20 MG TAB [oxyCONTIN] PO SCH ×2 (08:49→20:40)
[2018-10-25] MEDS: SPIRONOLACTONE 50 MG TAB PO SCH (08:50)
[2018-10-25] MEDS: ANASTROZOLE 1 MG TAB PO SCH (08:50)
[2018-10-25] MEDS: DOCUSATE SODIUM 100 MG CAP PO SCH ×2 (08:50→20:41)
--- NOTE | 2018-10-25 08:50 | PN ---
DATE: 10/25/2018 SUBJECTIVE: Overnight, the patient was noted to be hypotensive, was given IV albumin. No other even ts noted. OBJECTIVE: VITAL SIGNS: Blood pressure is 114/63, respirations 18, pulse 85, temperature 98.3. HEENT: Head is normocephalic. NECK: Supple. HEART: Regular rate. LUNGS: Show diminished breath sounds at the base. ABDOMEN: Soft, nontender to palpation. No rebound or guarding. EXTREMITIES: Negative for clubbing, cyanosis. Positive edema, improved. DERMATOLOGIC: No rashes. MUSCULOSKELETAL: No joint effusion. NEUROLOGIC: No change in exam. MEDICATIONS: Reviewed. LABORATORY DATA: Reviewed. ASSESSMENT AND PLAN: 1. Acute hypoxemic respiratory failure, etiology is secondary to bilateral pleural effusions. The p atient is status post thoracentesis. Respiratory status is improving. Continue to monitor. 2. Volume overload. Etiology is multifactorial secondary to diastolic heart failure, unclear if the re is a component of portal hypertension due to metastatic disease, questionable lymphogenic spread a nd obstruction. The patient currently is on IV Lasix and intermittent metolazone. We will hold diur etic therapy today as the patient is hypotensive. Continue to monitor closely. Monitor electrolytes closely. 3. Anemia. Monitor hemoglobin and hematocrit levels. 4. Breast cancer with metastasis to the liver, spine. Continue to monitor. Follow up with oncology . 5. Hip fracture, status post arthroplasty. Continue physical therapy. 6. Pleural effusion, status post thoracentesis. 7. Chronic pain syndrome. 8. History of leukemia, improved. 9. Hypotension. Etiology may be secondary to diuretic therapy. Lasix has been on hold in order to enable fluid to mobilize as stated above. Adjust blood pressure medications and monitor. Dictated By: ANDRÉS TATUM DO NR/NTS Conf#: [id number] DID#: [id number] CC: RUSS JEROME MD;*End*
[2018-10-25] MEDS: OLOPATADINE 0.1% 5 ML OPH BOTH EYES SCH ×2 (08:51→20:39)
[2018-10-25] MEDS: MAGNESIUM HYDROXIDE 30ML CUP PO SCH (08:52)
[2018-10-25] MEDS: POLYETHYLENE GLYCOL 17 GM PACKET PO SCH (08:52)
--- NOTE | 2018-10-25 10:38 | CONS ---
Consult Date/Type/Reason Admit Date/Time October 21, 2018 at 17:39 Initial Consult Date 10/21/18 Requesting Provider: RUSS JEROME MD Date/Time of Note DATE: 10/25/18 TIME: 10:35 Subjective NO acute events - pt comfortable - responding to diuresis - better overall. ROS: No fever, no chills, no nausea, no vomiting, no diarrhea/constipation - mild SOB, overall better Objective Vitals Vital Signs Date Temp Pulse Resp B/P (MAP) Pulse Ox O2 O2 Flow FiO2 Time Delivery Rate 10/25/18 85 08:48 10/25/18 Nasal 2.0 08:00 Cannula 10/25/18 98.3 18 114/63 92 07:30 (80) 10/23/18 30 16:30 Intake and Output 10/24/18 10/24/18 10/25/18 1414:59 22:59 06:59 IntakeIntake Total 800 ml BalanceBalance 800 ml Exam General: WN/WD/NAD, AOx 3 HEENT: Unicetric/atraumatic/EOMI ( follows commands) NECK: JVD elevated, no thyromegaly Lymph: no lymphadenopathy HEART: regular with no S3, II/ systolic murmur at apex, PMI L LUNGS: Coarse sounds ABD: soft, NT, ND, +BS : Intact Neuro: non focal SKIN: chronic changes EXT: 2+ edema Results/Medications Result Diagram: 10/24/18 0759 10/25/18 0638 Results 24 hrs Laboratory Tests Test 10/25/18 06:38 Sodium Level 137 Potassium Level 4.1 Chloride Level 95 L Carbon Dioxide Level 33 H Anion Gap 9 Blood Urea Nitrogen 26 H Creatinine 0.81 Est Glomerular Filtrat Rate mL/min > 60 Glucose Level 93 Calcium Level 9.3 Phosphorus Level 5.0 H Magnesium Level 1.9 Home Meds Reported Medications Tuberculin,Purif.prot.deriv. (Tubersol) 5 Tub Unit/0.1 Ml Vial, 0.1 ML ID, VIAL INJECT QHS EVERY 10 DAYS FOR PPD SCREENING FOR 11 DAYS READ IN 48 HOURS,IF NEGATIVE 2STEP IN 7 DAYS FROM FIRST DOSE. 10/21/18 Acetaminophen* (Tylenol*) 325 Mg Tablet, 650 MG PO Q4H PRN for PAIN LEVEL 1- 03/27, TAB 10/21/18 Spironolactone* (Aldactone*) 50 Mg Tablet, 50 MG PO DAILY, #30 TAB HOLD FOR SBP<110 10/21/18 Simethicone* (Mylicon*) 80 Mg Tab, 80 MG PO Q8H, TAB 10/21/18 Olopatadine* (Patanol* Ophth) 0.1% - 5 Ml Drops, 1 DROP BOTH EYES BID, EA 10/21/18 Hydrocodone/Acetaminophen ([place] 10-325 Tablet) 1 Each Tablet, 1 EACH PO Q4H, TAB 10/21/18 Loratadine* (Loratadine*) 10 Mg Tablet, 10 MG PO DAILY for FOR 3 MONTHS, #30 TAB 10/21/18 Lidocaine (Lidocaine) 1 Each Adh..patch, 1 EACH TP DAILY 10/21/18 Ipratropium-Albuterol (Ipratropium-Albuterol) 0.5-3 Mg/3 Ml Ampul.neb, 3 ML INHALATION Q8H, #30 VIAL 10/21/18 Furosemide* (Furosemide*) 40 Mg Tablet, 40 MG PO BID, TAB HOLD FOR SBP<110 10/21/18 Na Phos,M-B/Na Phos,Di-Ba (Fleet Enema Extra) Unknown Strength Enema, 1 APPLIC RC NEEDED for CONSTIPATION, ENEMA 10/21/18 Bisacodyl (Dulcolax) 10 Mg Supp.rect, 10 MG RC NEEDED, SUPP.RECT 10/21/18 Potassium Chloride* (Potassium Chloride*) 20 Meq Tablet.er, 20 MEQ PO DAILY, TAB.SA 09/09/18 Pantoprazole* (Pantoprazole*) 40 Mg Tablet.dr, 40 MG PO AC BREAKFAST, TAB 08/22/18 Oxycodone Hcl* (Oxycontin*) 20 Mg Tab.er.12h, 20 MG PO Q12, TAB 08/22/18 Amlodipine Besylate* (Norvasc*) 5 Mg Tablet, 5 MG PO DAILY, TAB HOLD FOR SBP <110. 08/22/18 Polyethylene Glycol* (Miralax*) 17 Gm Powd.pack, 17 GM PO DAILY, #60 PACKET 08/22/18 Magnesium Hydroxide* (Milk Of Magnesia*) 400 Mg/5 Ml Oral.susp, 30 ML PO DAILY, ML 08/22/18 Escitalopram Oxalate* (Lexapro*) 10 Mg Tablet, 10 MG PO DAILY, #30 TAB 08/22/18 Docusate Sodium* (Colace*) 100 Mg Capsule, 100 MG PO BID, #60 CAP 08/22/18 Carvedilol* (Carvedilol*) 3.125 Mg Tablet, 3.125 MG PO BID, #60 TAB HOLD FOR SBP <110 OR AR <60. GIVE WITH FOOD. 08/22/18 Benazepril Hcl* (Benazepril Hcl*) 5 Mg Tablet, 5 MG PO DAILY, #60 TAB HOLD FOR SBP <110. 08/22/18 Anastrozole* (Arimidex*) 1 Mg Tablet, 1 MG PO DAILY, #30 TAB 08/22/18 Discontinued Reported Medications Epoetin Cr (Procrit) 4,000 Unit/1 Ml Vial, 4000 UNIT IJ Q FRI, VIAL 7:00AM-7:00PM,HOLD IF HGB>10 09/09/18 Ondansetron Hcl* (Zofran*) 4 Mg Tab, 4 MG PO Q6H PRN for NAUSEA AND OR VOMITING, TAB 08/22/18 Furosemide* (Furosemide*) 20 Mg Tablet, 20 MG PO DAILY, #60 TAB HOLD FOR SBP <110. 08/22/18 Lactose-Free Food (Boost High Protein) 237 Ml Liquid, 120 ML PO BID 08/22/18 Acetaminophen* (Acetaminophen*) 500 MG Extra Strength Tablet, 500 MG PO Q6H PRN for PAIN AND OR ELEVATED TEMP, TAB 08/22/18 Medications Current Medications Acetaminophen (Tylenol Tab) 650 mg Q4H PRN PO PAIN LEVEL 1-10/10; Start 10/21/18 at 23:30 Anastrozole (Arimidex) 1 mg DAILY PO Last administered on 10/25/18at 08:50; Admin Dose 1 MG; Start 10/22/18 at 09:00 Benazepril HCl (Lotensin) 5 mg DAILY PO Last administered on 10/23/18at 09:51; Admin Dose 5 MG; Start 10/22/18 at 09:00 Bisacodyl (Dulcolax Supp) 10 mg Q8 AR Last administered on 10/24/18at 16:03; Ad min Dose 10 MG; Start 10/22/18 at 06:00 Carvedilol (Coreg) 3.125 mg BID PO Last administered on 10/23/18 22:21; Admin Dose 3.125 MG; Start 10/22/18 at 09:00 Docusate Sodium (Colace) 100 mg BID PO Last administered on 10/25/18 08:50; Admin Dose 100 MG; Start 10/22/18 at 09:00 Escitalopram Oxalate (Lexapro) 10 mg DAILY PO Last administered on 10/25/18 08:49; Admin Dose 10 MG; Start 10/22/18 at 09:00 Albuterol/ Ipratropium (Duoneb) 3 ml Q8H RESP THERAPY HHN Last administered on 10/23/18 07:48; Admin Dose 3 ML; Start 10/22/18 at 00:00 Loratadine (Claritin) 10 mg DAILY PO Last administered on 10/25/18 08:49; Admin Dose 10 MG; Start 10/22/18 at 09:00 Magnesium Hydroxide (Milk Of Mag) 30 ml DAILY PO Last administered on 10/24/18 08:42; Admin Dose 30 ML; Start 10/22/18 at 09:00 Olopatadine HCl (Patanol 0.1% Oph) 1 drop BID BOTH EYES Last administered on 10/23/18 09:51; Admin Dose 1 DROP; Start 10/22/18 at 09:00 Oxycodone HCl (Oxycontin) 20 mg Q12 PO Last administered on 10/25/18 08:49; Ad min Dose 20 MG; Start 10/22/18 at 09:00 Pantoprazole (Protonix Tab) 40 mg AC BREAKFAST PO Last administered on 10/25/18 05:55; Admin Dose 40 MG; Start 10/22/18 at 07:25 Polyethylene Glycol (Miralax) 17 gm DAILY PO ; Start 10/22/18 at 09:00 Simethicone (Mylicon) 80 mg Q8H PO Last administered on 10/25/18 05:56; Admin Dose 80 MG; Start 10/21/18 at 23:30 Spironolactone (Aldactone) 50 mg DAILY PO Last administered on 10/25/18 08:50; Admin Dose 50 MG; Start 10/22/18 at 09:00 Zolpidem Tartrate (Ambien) 10 mg HS PRN PO INSOMNIA Last administered on 10/22/18 21:20; Admin Dose 10 MG; Start 10/21/18 at 23:30 Furosemide (Lasix) 40 mg BID DIURETICS IV Last administered on 10/24/18 06:38; Admin Dose 40 MG; Start 10/22/18 at 06:00 Morphine Sulfate (morphine) 2 mg Q4H PRN IV SEVERE PAIN LEVEL 7-10 Last administered on 10/23/18 14:15; Admin Dose 2 MG; Start 10/22/18 at 01:30 Potassium Chloride (Klor-Con 20) 20 meq BID PO Last administered on 10/25/18 08:49; Admin Dose 20 MEQ; Start 10/22/18 at 13:00 Albumin Human 100 ml @ 100 mls/hr Q8H IV Last administered on 10/25/18 05:55; Admin Dose 100 MLS/HR; Start 10/24/18 at 23:00; Stop 10/25/18 at 15:59 Assessment/Plan Hospital Course (Demo Recall) 1. Congestive heart failure exacerbation would be diastolic, acute on chronic by most recent echo.-now s/p echo this admit with EF 60/small effusion - better now, responding to diuresis. 2. Abnormal electrocardiogram with low voltage, rule out pericardial effusion - stable, no signs of tamponade. 3. Hypertension-currently borderline hypotension - treated with meds. 4. Metastatic breast carcinoma. 5. History of pathologic fractures of the leg, status post open reduction and internal fixation - pain controlled. 6. Anemia. 7. Increased BNP consistent with patient's congestive heart failure. 8. Pericardial effusion-small by echo EMILY NELSON MD October 25, 2018 10:37
--- NOTE | 2018-10-25 18:48 | CONS ---
Assessment/Plan Assessment/Plan Hospital Course (Demo Recall) METASTATIC BREAST CANCER WITH PRIMARY ADENOCARCINOMA IN the left breast. MULTIPLE BONY METS, PULMONARY METS, LIVER METS CHEMO ON HOLD PT HAS A VERY GOOD RESPONSE TO CHEMO AND AI CONT AI FOR NOW CT ABD FOR RESTAGING 08.27.18- noted , stable Leukopenia- post chemo, IMPROVING post NEUPOGEN monitor closely post Neutropenia with occasional fever and chills. - resolved Anemia chronic disease SOB PLEURAL EFFUSIONS, NEG CYTOLOGY POST thoracentesis Fluid overload diuretic cardiology F-UP Severe pain in the interscapular and lumbar sacral area most probably metastatic lesion possible femoral fracture. pathologic fracture of T9 with 60% of loss of height. Bony pain with multiple bony mets post XRT will d/w dr Ocampo Obesity. Weight loss 60 pounds during the last 2 years PMS. Myopia. Anxiety disorder. Claustrophobia. Posttraumatic stress disorder. Pain in the left forearm with a history of fracture of ulna and radius. Tachycardia Hypoxemia at night marginal improved after 2 L of nasal cannula oxygen. Deconditioning Pain syndrome. Today the most painful zone is in the right hip area. X-ray did not show any fractures. Hyponatremia- resolved Hypoalbuminemia Right sided cp after catheter insertion and correction less discomfort. Decreased edema both lower extremities with hypotension-improving Swelling of the left forearm-persist. Consultation Date/Type/Reason Admit Date/Time October 21, 2018 at 17:39 Initial Consult Date 10/21/18 Type of Consult [facility] Requesting Provider: RUSS JEROME MD Date/Time of Note DATE: 10/25/18 TIME: 18:46 24 HR Interval Summary Free Text/Dictation all noted + pain Exam/Review of Systems Exam Vitals Vital Signs Date Temp Pulse Resp B/P (MAP) Pulse Ox O2 O2 Flow FiO2 Time Delivery Rate 10/25/18 99.1 89 18 140/83 96 16:54 (102) 10/25/18 Room Air 15:27 10/25/18 2.0 08:00 10/23/18 30 16:30 Intake and Output 10/24/18 10/24/18 10/25/18 1515:00 23:00 07:00 IntakeIntake Total 800 ml BalanceBalance 800 ml Exam HEENT: Head is normocephalic. NECK: Supple. HEART: Regular rate. LUNGS: Show diminished breath sounds at the base. ABDOMEN: Soft, nontender to palpation. No rebound or guarding. EXTREMITIES: Negative for clubbing, cyanosis, positive edema. DERMATOLOGIC: No rashes. MUSCULOSKELETAL: No joint effusion. NEUROLOGIC: No change in exam. Results Result Diagram: 10/24/18 0759 10/25/18 0638 Results 24hrs Laboratory Tests Test 10/25/18 06:38 Sodium Level 137 Potassium Level 4.1 Chloride Level 95 L Carbon Dioxide Level 33 H Anion Gap 9 Blood Urea Nitrogen 26 H Creatinine 0.81 Est Glomerular Filtrat Rate mL/min > 60 Glucose Level 93 Calcium Level 9.3 Phosphorus Level 5.0 H Magnesium Level 1.9 Medications Medication Current Medications Acetaminophen (Tylenol Tab) 650 mg Q4H PRN PO PAIN LEVEL 1-03/27; Start 10/21/18 at 23:30 Anastrozole (Arimidex) 1 mg DAILY PO Last administered on 10/25/18 08:50; Admin Dose 1 MG; Start 10/22/18 at 09:00 Benazepril HCl (Lotensin) 5 mg DAILY PO Last administered on 10/23/18 09:51; Admin Dose 5 MG; Start 10/22/18 at 09:00 Bisacodyl (Dulcolax Supp) 10 mg Q8 [place] Last administered on 10/24/18 16:03; Admin Dose 10 MG; Start 10/22/18 at 06:00 Carvedilol (Coreg) 3.125 mg BID PO Last administered on 10/23/18 22:21; Admin Dose 3.125 MG; Start 10/22/18 at 09:00 Docusate Sodium (Colace) 100 mg BID PO Last administered on 10/25/18 08:50; Admin Dose 100 MG; Start 10/22/18 at 09:00 Escitalopram Oxalate (Lexapro) 10 mg DAILY PO Last administered on 10/25/18 08:49; Admin Dose 10 MG; Start 10/22/18 at 09:00 Albuterol/ Ipratropium (Duoneb) 3 ml Q8H RESP THERAPY HHN Last administered on 10/23/18 07:48; Admin Dose 3 ML; Start 10/22/18 at 00:00 Loratadine (Claritin) 10 mg DAILY PO Last administered on 10/25/18 08:49; Admin Dose 10 MG; Start 10/22/18 at 09:00 Magnesium Hydroxide (Milk Of Mag) 30 ml DAILY PO Last administered on 10/24/18 08:42; Admin Dose 30 ML; Start 10/22/18 at 09:00 Olopatadine HCl (Patanol 0.1% Oph) 1 drop BID BOTH EYES Last administered on 10/23/18 09:51; Admin Dose 1 DROP; Start 10/22/18 at 09:00 Oxycodone HCl (Oxycontin) 20 mg Q12 PO Last administered on 10/25/18 08:49; Admin Dose 20 MG; Start 10/22/18 at 09:00 Pantoprazole (Protonix Tab) 40 mg AC BREAKFAST PO Last administered on 10/25/18 05:55; Admin Dose 40 MG; Start 10/22/18 at 07:25 Polyethylene Glycol (Miralax) 17 gm DAILY PO ; Start 10/22/18 at 09:00 Simethicone (Mylicon) 80 mg Q8H PO Last administered on 10/25/18 15:39; Admin Dose 80 MG; Start 10/21/18 at 23:30 Spironolactone (Aldactone) 50 mg DAILY PO Last administered on 10/25/18 08:50; Admin Dose 50 MG; Start 10/22/18 at 09:00 Zolpidem Tartrate (Ambien) 10 mg HS PRN PO INSOMNIA Last administered on 10/22/18 21:20; Admin Dose 10 MG; Start 10/21/18 at 23:30 Furosemide (Lasix) 40 mg BID DIURETICS IV Last administered on 10/25/18 18:13; Admin Dose 40 MG; Start 10/22/18 at 06:00 Morphine Sulfate (morphine) 2 mg Q4H PRN IV SEVERE PAIN LEVEL 7-10 Last administered on 10/23/18 14:15; Admin Dose 2 MG; Start 10/22/18 at 01:30 Potassium Chloride (Klor-Con 20) 20 meq BID PO Last administered on 10/25/18 08:49; Admin Dose 20 MEQ; Start 10/22/18 at 13:00 DSE DUNAWAY MD October 25, 2018 18:48
--- NOTE | 2018-10-25 20:55 | PN ---
Date/Time of Note Date/Time of Note DATE: 10/25/18 TIME: 20:52 Assessment/Plan VTE Prophylaxis Risk score (from Nsg)>0 risk: 8 SCD applied (from Nsg): No SCD contraindicated: other (on.) Pharmacological prophylaxis: LMWH Lines/Catheters IV Catheter Type (from Nrsg): Peripheral IV Central line still needed: Yes Urinary Cath still in place: No Reason Cath still needed: urinary retention Assessment/Plan Assessment/Plan 1. PRIMARY ADENOCARCINOMA of the left breast. MULTIPLE BONY METS, PULMONARY METS;LIVER METS CHEMO ON HOLD; PT HAS A VERY GOOD RESPONSE TO CHEMO AND AI 2. Severe pain in the interscapular and lumbar sacral area most probably metastatic lesion possible femoral fracture. pathologic fracture of T9 with 60% of loss of height. Neurosurgical f/u. 3. Obesity. 4. Weight loss 60 pounds during the last 2 years by diet 5. PMS. 6. Myopia. 7. Anemia chronic disease with a drop of her hematocrit to 27; Latest results 28. Will recheck tomorrow;Leukopenia.Thrombocytopenia; 8. Anxiety disorder. Claustrophobia. Increase Ativan to 1 mg every 8 as needed at Lexapro 10 mg daily. 9. Posttraumatic stress disorder. 10. Pain in the left forearm with a history of fracture of ulna and radius. 11. Tachycardia 12. Hypoxemia at night marginal improved after 2 L of nasal cannula oxygen. 13. Deconditioning 14. 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 MRI: 09/28/18:diffuse osseous metastatic disease with multiple pathologic compression fractures at least involving the T4, T5, T7, T9 and T11 levels. There is likely mild cortical breakthrough at several levels resulting in mild central canal narrowing. No gross evidence of cord compression is seen.. 15. Pain syndrome. Today the most painful zone is in the right hip area. 16. Hyponatremia-corrected; hypokalemia now hyperkalemic 5.2 hold potassium p.o. today and hold Aldactone today.Recheck and sodium chloride daily with the dose to 4 mg today 17. Leucopenia-improved. 18. Neutropenia with occasional fever and chills. Last chemotherapy 5 days ago. 19. Hypoalbuminemia. 20.Right sided cp after catheter insertion and correction less discomfort. 21. Decreased edema both lower extremities with [id number] with Pleural and Pericardial effusion. 22. pain syndrome 23.bilateral pleural effusions ; s/p left thoracentesis, During the procedure the probe of the u/s was placed to the right side of the chest which showed only minimal amount of liquid on the right pleural cavity. Reaccumulation of the pleural fluid. Plan to tap from the right side tomorrow a.m. 24. Systolic over diastolic congestive heart failure with a right more than left lower extremity swelling with no DVT in latest venous Doppler. 25. Swelling of the left forearm-persist. Cellulitis of the left forearm with increased edema anteriorly.-Today it is less edematous 26. Pathologic fracture of the right hip;s/p hemiarthroplasty of right hip . 27. Dizziness 28. Chills. 29. Memory impairment. Result Diagram: 10/24/18 0759 10/25/18 0638 Results 24hrs Laboratory Tests Test 10/25/18 06:38 Sodium Level 137 Potassium Level 4.1 Chloride Level 95 L Carbon Dioxide Level 33 H Anion Gap 9 Blood Urea Nitrogen 26 H Creatinine 0.81 Est Glomerular Filtrat Rate mL/min > 60 Glucose Level 93 Calcium Level 9.3 Phosphorus Level 5.0 H Magnesium Level 1.9 Subjective 24 Hr Interval Summary Free Text/Dictation Pain is tolerable with pain medications. Very difficult to turning the bed very difficult to get up to sit and stand up from sitting position. I am trying to walk myself with a feeling shaky. Constitutional: chills, diaphoresis, poor po, requiring O2; No no complaints, No improved, No disoriented, No febrile, No requiring IVF, No other Eyes: No no complaints, No pain, No discharge, No redness, No visual change, No other ENT: pain, congestion; No no complaints, No bleeding, No discharge, No dysphagia, No sore throat, No other Respiratory: cough, shortness of breath; No no complaints, No pain, No pleuritic pain, No sputum, No wheezing, No other Cardiovascular: edema, lightheadedness, orthopenea, palpitations; No no complaints, No chest pain, No paroxysmal nocturnal dyspnea, No other Gastrointestinal: constipation, decreased appetite, nausea, passing stool; No no complaints, No pain, No blood, No diarrhea, No flatus, No vomiting, No other Genitourinary: dysuria, discharge; No no complaints, No bleeding, No flank pain, No hematuria, No other Musculoskeletal: back pain, bone/joint pain, neck pain; No no complaints, No restricted range of motion, No swelling, No other Skin: bruising, rash; No no complaints, No erythema, No laceration, No pruritis, No skin lesions, No other Neurologic: dizziness; No no complaints, No confusion, No focal-weakness, No headache, No syncope, No seizure, No other Endocrine: No no complaints, No polyuria, No polydypsia, No dry skin, No temp intolerance, No other Lymphatic: No no complaints, No adenopathy, No tender nodes, No lymphadema, No other Psychological: anxiety; No no complaints, No nl mood/affect, No confusion, No depression, No suicidal, No other Exam/Review of Systems Exam Vitals Vital Signs Date Temp Pulse Resp B/P (MAP) Pulse Ox O2 O2 Flow FiO2 Time Delivery Rate 10/25/18 97.8 94 20 106/56 93 19:50 (73) 10/25/18 Room Air 15:27 10/25/18 2.0 08:00 10/23/18 30 16:30 Intake and Output 10/24/18 10/24/18 10/25/18 1515:00 23:00 07:00 IntakeIntake Total 800 ml BalanceBalance 800 ml Constitutional: alert, oriented, well developed, distress, frail, obese; No non-verbal, No other Psych: anxiety, depression; No no complaints, No nl mood/affect, No confusion, No suicidal, No other Head: normocephalic, atraumatic; No lacerations, No hematomas, No other Eyes: nl conjunctiva, EOMI, nl lids, PERRL; No nl sclera, No icteric, No fundi, disc, No other ENMT: nl external ears & nose, nl lips & teeth, nl nasal mucosa & septum; No mucosa pink and moist, No intubated, No tympanic membranes, No other Neck: jvd, bruits, thyromegaly, nuchal rigidity; No supple, No non-tender, No masses, No other Respiratory: clear to auscultation, normal air movement (Decreased breath sounds lower lung sounds bilaterally.), crackles/rales, diminished breath sounds; No congested cough, No intercostal retraction, No labored breathing, No respirations, No tactile fremitus, No wheezing, No other Cardiovascular: regular rate and rhythm, bruits, edema (2+ edema bilaterally and to the level of knees.), jugular venous distention (JVD), systolic murmur; No nl pulses, No diastolic murmur, No gallop, No irregular rhythm, No murmurs/extra sounds, No rub, No S3, No S4, No other Gastrointestinal: nl liver, spleen, bowel sounds, distended; No soft, No non-tender, No ascites, No firm, No hepatomegaly, No mass, No rebound or guarding, No splenomegaly, No surgical scars, No tender, No other Genitourinary - Female: No nl adnexae, No nl external genitalia, No CMT, No CVA tenderness, No uterus, No other Musculoskeletal: nl gait and stance, joint tenderness, muscle tone, muscle weakness; No nl extremities to inspection, No range of motion, No spine non-tender, No swelling, No other Extremities: edema (Slightly more than others sides edema of left upper extremity comparing to yesterday's less; and right lower extremity also less than yesterday.); No normal pulses, No calf tenderness, No cyanosis, No clubbing, No pitting pedal edema, No palpable cord, No tenderness, No other 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: [employer] 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, confused, lethargic; No nl mental status, No nl speech, No nl strength, No DTR's symmetric, No focal weakness, No numbness, No reflexes, No unresponsive, No other Skin: No nl turgor, No rash or lesions, No diaphoresis, No ecchymosis, No laceration, No puncture, No other Results Results 24hrs Laboratory Tests Test 10/25/18 06:38 Sodium Level 137 Potassium Level 4.1 Chloride Level 95 L Carbon Dioxide Level 33 H Anion Gap 9 Blood Urea Nitrogen 26 H Creatinine 0.81 Est Glomerular Filtrat Rate mL/min > 60 Glucose Level 93 Calcium Level 9.3 Phosphorus Level 5.0 H Magnesium Level 1.9 Medications Medication Current Medications Acetaminophen (Tylenol Tab) 650 mg Q4H PRN PO PAIN LEVEL 1-03/27; Start 10/21/18 at 23:30 Anastrozole (Arimidex) 1 mg DAILY PO Last administered on 10/25/18at 08:50; Adm in Dose 1 MG; Start 10/22/18 at 09:00 Benazepril HCl (Lotensin) 5 mg DAILY PO Last administered on 10/23/18 09:51; Admin Dose 5 MG; Start 10/22/18 at 09:00 Bisacodyl (Dulcolax Supp) 10 mg Q8 [place] Last administered on 10/24/18 16:03; Admin Dose 10 MG; Start 10/22/18 at 06:00 Carvedilol (Coreg) 3.125 mg BID PO Last administered on 10/25/18 20:42; Admin Dose 3.125 MG; Start 10/22/18 at 09:00 Docusate Sodium (Colace) 100 mg BID PO Last administered on 10/25/18 20:41; Admin Dose 100 MG; Start 10/22/18 at 09:00 Escitalopram Oxalate (Lexapro) 10 mg DAILY PO Last administered on 10/25/18 08:49; Admin Dose 10 MG; Start 10/22/18 at 09:00 Albuterol/ Ipratropium (Duoneb) 3 ml Q8H RESP THERAPY HHN Last administered on 10/23/18 07:48; Admin Dose 3 ML; Start 10/22/18 at 00:00 Loratadine (Claritin) 10 mg DAILY PO Last administered on 10/25/18 08:49; Admin Dose 10 MG; Start 10/22/18 at 09:00 Magnesium Hydroxide (Milk Of Mag) 30 ml DAILY PO Last administered on 10/24/18 08:42; Admin Dose 30 ML; Start 10/22/18 at 09:00 Olopatadine HCl (Patanol 0.1% Oph) 1 drop BID BOTH EYES Last administered on 10/25/18 20:39; Admin Dose 1 DROP; Start 10/22/18 at 09:00 Oxycodone HCl (Oxycontin) 20 mg Q12 PO Last administered on 10/25/18 20:40; Admin Dose 20 MG; Start 10/22/18 at 09:00 Pantoprazole (Protonix Tab) 40 mg AC BREAKFAST PO Last administered on 10/25/18 05:55; Admin Dose 40 MG; Start 10/22/18 at 07:25 Polyethylene Glycol (Miralax) 17 gm DAILY PO ; Start 10/22/18 at 09:00 Simethicone (Mylicon) 80 mg Q8H PO Last administered on 10/25/18 15:39; Admin Dose 80 MG; Start 10/21/18 at 23:30 Spironolactone (Aldactone) 50 mg DAILY PO Last administered on 10/25/18 08:50; Admin Dose 50 MG; Start 10/22/18 at 09:00 Zolpidem Tartrate (Ambien) 10 mg HS PRN PO INSOMNIA Last administered on 10/22/18 21:20; Admin Dose 10 MG; Start 10/21/18 at 23:30 Furosemide (Lasix) 40 mg BID DIURETICS IV Last administered on 10/25/18 18:13; Admin Dose 40 MG; Start 10/22/18 at 06:00 Morphine Sulfate (morphine) 2 mg Q4H PRN IV SEVERE PAIN LEVEL 7-10 Last administered on 10/23/18 14:15; Admin Dose 2 MG; Start 10/22/18 at 01:30 Potassium Chloride (Klor-Con 20) 20 meq BID PO Last administered on 10/25/18 20:40; Admin Dose 20 MEQ; Start 10/22/18 at 13:00 RUSS JEROME MD October 25, 2018 20:55
[2018-10-26 02:09] VITALS: BP 113/62; PULSE 96; RESP 18
[2018-10-26] MEDS: FUROSEMIDE 40 MG TAB PO SCH ×2 (05:36→17:32)
[2018-10-26] MEDS: BISACODYL 10 MG SUPP PR SCH ×4 (05:42→23:49)
[2018-10-26 07:09] VITALS: BP 117/59; PULSE 89; RESP 18
[2018-10-26] MEDS: ALBUTEROL/IPRATROPIUM (NEB) 3 ML AMP HHN SCH ×2 (08:00→14:58)
[2018-10-26] MEDS: MAGNESIUM HYDROXIDE 30ML CUP PO SCH (09:00)
[2018-10-26] MEDS: POLYETHYLENE GLYCOL 17 GM PACKET PO SCH (09:00)
[2018-10-26] MEDS: oxyCODONE (CR) 20 MG TAB [oxyCONTIN] PO SCH ×2 (10:20→20:24)
[2018-10-26] MEDS: DOCUSATE SODIUM 100 MG CAP PO SCH ×2 (10:20→20:23)
[2018-10-26] MEDS: LORATADINE 10 MG TAB PO SCH (10:20)
[2018-10-26] MEDS: ESCITALOPRAM 10 MG TAB PO SCH (10:20)
[2018-10-26] MEDS: POTASSIUM CHLORIDE (SR) 20 MEQ TAB PO SCH ×2 (10:20→20:25)
[2018-10-26] MEDS: PANTOPRAZOLE (EC) 40 MG TAB PO SCH (10:21)
[2018-10-26] MEDS: ANASTROZOLE 1 MG TAB PO SCH (10:24)
[2018-10-26] MEDS: BENAZEPRIL 5 MG TAB PO SCH (10:25)
[2018-10-26] MEDS: SPIRONOLACTONE 50 MG TAB PO SCH (10:26)
--- NOTE | 2018-10-26 11:43 | CONS ---
Assessment/Plan Assessment/Plan Hospital Course (Demo Recall) 1. Acute hypoxemic respiratory failure, etiology is secondary to bilateral pleural effusions. The patient is status post thoracentesis. Respiratory status is improving. Continue to monitor. 2. Volume overload. Etiology is multifactorial secondary to diastolic heart failure, unclear if there is a component of portal hypertension due to metastatic disease, questionable lymphogenic spread and obstruction. now on lasix po. 3. Anemia. Monitor hemoglobin and hematocrit levels. 4. Breast cancer with metastasis to the liver, spine. Continue to monitor. Follow up with oncology. 5. Hip fracture, status post arthroplasty. Continue physical therapy. 6. Pleural effusion, status post thoracentesis. 7. Chronic pain syndrome. 8. History of leukemia, improved. Consultation Date/Type/Reason Admit Date/Time October 21, 2018 at 17:39 Initial Consult Date 10/21/18 Requesting Provider: RUSS JEROME MD Date/Time of Note DATE: 10/26/18 TIME: 11:42 24 HR Interval Summary Free Text/Dictation shortness of breath improved BP improved adequate urine output d/w rn gen nad cv rrr pulm ctab abd soft, nd, nt +bs ext: no edema Exam/Review of Systems Exam Vitals Vital Signs Date Temp Pulse Resp B/P (MAP) Pulse Ox O2 O2 Flow FiO2 Time Delivery Rate 10/26/18 2.0 08:12 10/26/18 99.3 89 18 117/59 99 Room Air 07:09 (78) 10/23/18 30 16:30 Results Result Diagram: 10/26/18 0455 10/26/18 0505 Results 24hrs Laboratory Tests Test 10/26/18 04:55 10/26/18 05:05 White Blood Count 3.4 L Red Blood Count 3.01 L Hemoglobin 9.7 L Hematocrit 30.3 L Mean Corpuscular Volume 100.7 Mean Corpuscular Hemoglobin 32.2 Mean Corpuscular Hemoglobin Concent 32.0 Red Cell Distribution Width 17.3 H Platelet Count 183 Mean Platelet Volume 9.1 Immature Granulocytes % 0.000 L Neutrophils % 46.7 Lymphocytes % 31.7 Monocytes % 16.6 H Eosinophils % 4.1 Basophils % 0.9 Nucleated Red Blood Cells % 0.0 Immature Granulocytes # 0.000 Neutrophils # 1.6 Lymphocytes # 1.1 Monocytes # 0.6 Eosinophils # 0.1 Basophils # 0.0 Nucleated Red Blood Cells # 0.0 Sodium Level 137 Potassium Level 4.3 Chloride Level 93 L Carbon Dioxide Level 36 H Anion Gap 8 Blood Urea Nitrogen 24 H Creatinine 0.86 Est Glomerular Filtrat Rate mL/min > 60 Glucose Level 101 Calcium Level 9.6 Phosphorus Level 4.7 Magnesium Level 1.9 Medications Medication Current Medications Acetaminophen (Tylenol Tab) 650 mg Q4H PRN PO PAIN LEVEL -03/27; Start 10/21/18 at 23:30 Anastrozole (Arimidex) 1 mg DAILY PO Last administered on 10/26/18 10:24; Admin Dose 1 MG; Start 10/22/18 at 09:00 Benazepril HCl (Lotensin) 5 mg DAILY PO Last administered on 10/26/18 10:25; Admin Dose 5 MG; Start 10/22/18 at 09:00 Bisacodyl (Dulcolax Supp) 10 mg Q8 [place] Last administered on 10/24/18 16:03; Admin Dose 10 MG; Start 10/22/18 at 06:00 Carvedilol (Coreg) 3.125 mg BID PO Last administered on 10/26/18 10:21; Admin Dose 3.125 MG; Start 10/22/18 at 09:00 Docusate Sodium (Colace) 100 mg BID PO Last administered on 10/26/18 10:20; Admin Dose 100 MG; Start 10/22/18 at 09:00 Escitalopram Oxalate (Lexapro) 10 mg DAILY PO Last administered on 10/26/18 1 0:20; Admin Dose 10 MG; Start 10/22/18 at 09:00 Albuterol/ Ipratropium (Duoneb) 3 ml Q8H RESP THERAPY HHN Last administered on 10/23/18 07:48; Admin Dose 3 ML; Start 10/22/18 at 00:00 Loratadine (Claritin) 10 mg DAILY PO Last administered on 10/26/18 10:20; Admin Dose 10 MG; Start 10/22/18 at 09:00 Magnesium Hydroxide (Milk Of Mag) 30 ml DAILY PO Last administered on 10/24/18 08:42; Admin Dose 30 ML; Start 10/22/18 at 09:00 Oxycodone HCl (Oxycontin) 20 mg Q12 PO Last administered on 10/26/18 10:20; Admin Dose 20 MG; Start 10/22/18 at 09:00 Pantoprazole (Protonix Tab) 40 mg AC BREAKFAST PO Last administered on 10/26/18 10:21; Admin Dose 40 MG; Start 10/22/18 at 07:25 Polyethylene Glycol (Miralax) 17 gm DAILY PO ; Start 10/22/18 at 09:00 Simethicone (Mylicon) 80 mg Q8H PO Last administered on 10/26/18 10:20; Admin Dose 80 MG; Start 10/21/18 at 23:30 Spironolactone (Aldactone) 50 mg DAILY PO Last administered on 10/26/18 10:26; Admin Dose 50 MG; Start 10/22/18 at 09:00 Zolpidem Tartrate (Ambien) 10 mg HS PRN PO INSOMNIA Last administered on 10/22/18 21:20; Admin Dose 10 MG; Start 10/21/18 at 23:30 Morphine Sulfate (morphine) 2 mg Q4H PRN IV SEVERE PAIN LEVEL 7-10 Last administered on 10/23/18 14:15; Admin Dose 2 MG; Start 10/22/18 at 01:30 Potassium Chloride (Klor-Con 20) 20 meq BID PO Last administered on 10/26/18 10:20; Admin Dose 20 MEQ; Start 10/22/18 at 13:00 Furosemide (Lasix) 40 mg BID DIURETICS PO Last administered on 10/26/18 05:36; Admin Dose 40 MG; Start 10/26/18 at 06:00 DAMON GUERIN MD October 26, 2018 11:43
[2018-10-26 13:40] VITALS: BP 100/61; PULSE 88; RESP 20
[2018-10-26 14:01] VITALS: BP 96/59; RESP 20
[2018-10-26] MEDS ORDERED: LIDOCAINE 1% (MPF) 5 ML VIAL ONE (14:07)
[2018-10-26 14:16] VITALS: BP 101/56; PULSE 82; RESP 19
--- NOTE | 2018-10-26 14:34 | CONS ---
Consult Date/Type/Reason Admit Date/Time October 21, 2018 at 17:39 Initial Consult Date 10/21/18 Requesting Provider: RUSS JEROME MD Date/Time of Note DATE: 10/26/18 TIME: 14:31 Subjective Pt better overall- responding to diuresis with much improved urine output - improved SOB now. ROS: No fever, no chills, no nausea, no vomiting, no diarrhea/constipation + fatigue No recent weight changes No chest pain, no PND, no orthopnea - improved SOB No dizziness, blurred vision No thirst, no heat or cold intolerance Objective Vitals Vital Signs Date Temp Pulse Resp B/P (MAP) Pulse Ox O2 O2 Flow FiO2 Time Delivery Rate 10/26/18 98.6 82 19 101/56 99 Nasal 14:16 (71) Cannula 10/26/18 2.0 08:12 10/23/18 30 16:30 Exam General: WN/WD/NAD, AOx 3 HEENT: Unicetric/atraumatic/EOMI ( follow commands) NECK: JVD elevated 8 cm , no thyromegaly Lymph: no lymphadenopathy HEART: regular with no S3, II/ systolic murmur at apex LUNGS: Coarse sounds ABD: soft, NT, ND, +BS : Intact Neuro: non focal SKIN: chronic changes EXT: 1-2+ edema, better now Results/Medications Result Diagram: 10/26/18 0455 10/26/18 0505 Results 24 hrs Laboratory Tests Test 10/26/18 04:55 10/26/18 05:05 White Blood Count 3.4 L Red Blood Count 3.01 L Hemoglobin 9.7 L Hematocrit 30.3 L Mean Corpuscular Volume 100.7 Mean Corpuscular Hemoglobin 32.2 Mean Corpuscular Hemoglobin Concent 32.0 Red Cell Distribution Width 17.3 H Platelet Count 183 Mean Platelet Volume 9.1 Immature Granulocytes % 0.000 L Neutrophils % 46.7 Lymphocytes % 31.7 Monocytes % 16.6 H Eosinophils % 4.1 Basophils % 0.9 Nucleated Red Blood Cells % 0.0 Immature Granulocytes # 0.000 Neutrophils # 1.6 Lymphocytes # 1.1 Monocytes # 0.6 Eosinophils # 0.1 Basophils # 0.0 Nucleated Red Blood Cells # 0.0 Sodium Level 137 Potassium Level 4.3 Chloride Level 93 L Carbon Dioxide Level 36 H Anion Gap 8 Blood Urea Nitrogen 24 H Creatinine 0.86 Est Glomerular Filtrat Rate mL/min > 60 Glucose Level 101 Calcium Level 9.6 Phosphorus Level 4.7 Magnesium Level 1.9 Home Meds Reported Medications Tuberculin,Purif.prot.deriv. (Tubersol) 5 Tub Unit/0.1 Ml Vial, 0.1 ML ID, VIAL INJECT QHS EVERY 10 DAYS FOR PPD SCREENING FOR 11 DAYS READ IN 48 HOURS,IF NEGATIVE 2STEP IN 7 DAYS FROM FIRST DOSE. 10/21/18 Acetaminophen* (Tylenol*) 325 Mg Tablet, 650 MG PO Q4H PRN for PAIN LEVEL 1- 03/27, TAB 10/21/18 Spironolactone* (Aldactone*) 50 Mg Tablet, 50 MG PO DAILY, #30 TAB HOLD FOR SBP<110 10/21/18 Simethicone* (Mylicon*) 80 Mg Tab, 80 MG PO Q8H, TAB 10/21/18 Olopatadine* (Patanol* Ophth) 0.1% - 5 Ml Drops, 1 DROP BOTH EYES BID, EA 10/21/18 Hydrocodone/Acetaminophen ([place] 10-325 Tablet) 1 Each Tablet, 1 EACH PO Q4H, TAB 10/21/18 Loratadine* (Loratadine*) 10 Mg Tablet, 10 MG PO DAILY for FOR 3 MONTHS, #30 TAB 10/21/18 Lidocaine (Lidocaine) 1 Each Adh..patch, 1 EACH TP DAILY 10/21/18 Ipratropium-Albuterol (Ipratropium-Albuterol) 0.5-3 Mg/3 Ml Ampul.neb, 3 ML INHALATION Q8H, #30 VIAL 10/21/18 Furosemide* (Furosemide*) 40 Mg Tablet, 40 MG PO BID, TAB HOLD FOR SBP<110 10/21/18 Na Phos,M-B/Na Phos,Di-Ba (Fleet Enema Extra) Unknown Strength Enema, 1 APPLIC RC NEEDED for CONSTIPATION, ENEMA 10/21/18 Bisacodyl (Dulcolax) 10 Mg Supp.rect, 10 MG RC NEEDED, SUPP.RECT 10/21/18 Potassium Chloride* (Potassium Chloride*) 20 Meq Tablet.er, 20 MEQ PO DAILY, TAB.SA 09/09/18 Pantoprazole* (Pantoprazole*) 40 Mg Tablet.dr, 40 MG PO AC BREAKFAST, TAB 08/22/18 Oxycodone Hcl* (Oxycontin*) 20 Mg Tab.er.12h, 20 MG PO Q12, TAB 08/22/18 Amlodipine Besylate* (Norvasc*) 5 Mg Tablet, 5 MG PO DAILY, TAB HOLD FOR SBP <110. 08/22/18 Polyethylene Glycol* (Miralax*) 17 Gm Powd.pack, 17 GM PO DAILY, #60 PACKET 08/22/18 Magnesium Hydroxide* (Milk Of Magnesia*) 400 Mg/5 Ml Oral.susp, 30 ML PO DAILY, ML 08/22/18 Escitalopram Oxalate* (Lexapro*) 10 Mg Tablet, 10 MG PO DAILY, #30 TAB 08/22/18 Docusate Sodium* (Colace*) 100 Mg Capsule, 100 MG PO BID, #60 CAP 08/22/18 Carvedilol* (Carvedilol*) 3.125 Mg Tablet, 3.125 MG PO BID, #60 TAB HOLD FOR SBP <110 OR SC <60. GIVE WITH FOOD. 08/22/18 Benazepril Hcl* (Benazepril Hcl*) 5 Mg Tablet, 5 MG PO DAILY, #60 TAB HOLD FOR SBP <110. 08/22/18 Anastrozole* (Arimidex*) 1 Mg Tablet, 1 MG PO DAILY, #30 TAB 08/22/18 Discontinued Reported Medications Epoetin Cr (Procrit) 4,000 Unit/1 Ml Vial, 4000 UNIT IJ Q FRI, VIAL 7:00AM-7:00PM,HOLD IF HGB>10 09/09/18 Ondansetron Hcl* (Zofran*) 4 Mg Tab, 4 MG PO Q6H PRN for NAUSEA AND OR VOMITING, TAB 08/22/18 Furosemide* (Furosemide*) 20 Mg Tablet, 20 MG PO DAILY, #60 TAB HOLD FOR SBP <110. 08/22/18 Lactose-Free Food (Boost High Protein) 237 Ml Liquid, 120 ML PO BID 08/22/18 Acetaminophen* (Acetaminophen*) 500 MG Extra Strength Tablet, 500 MG PO Q6H PRN for PAIN AND OR ELEVATED TEMP, TAB 08/22/18 Medications Current Medications Acetaminophen (Tylenol Tab) 650 mg Q4H PRN PO PAIN LEVEL 1-10/10; Start 10/21/18 at 23:30 Anastrozole (Arimidex) 1 mg DAILY PO Last administered on 10/26/18 10:24; A dmin Dose 1 MG; Start 10/22/18 at 09:00 Benazepril HCl (Lotensin) 5 mg DAILY PO Last administered on 10/26/18 10:25; Admin Dose 5 MG; Start 10/22/18 at 09:00 Bisacodyl (Dulcolax Supp) 10 mg Q8 [place] Last administered on 10/24/18 16:03; Admin Dose 10 MG; Start 10/22/18 at 06:00 Carvedilol (Coreg) 3.125 mg BID PO Last administered on 10/26/18 10:21; Admin Dose 3.125 MG; Start 10/22/18 at 09:00 Docusate Sodium (Colace) 100 mg BID PO Last administered on 10/26/18 10:20; Admin Dose 100 MG; Start 10/22/18 at 09:00 Escitalopram Oxalate (Lexapro) 10 mg DAILY PO Last administered on 10/26/18 10:20; Admin Dose 10 MG; Start 10/22/18 at 09:00 Albuterol/ Ipratropium (Duoneb) 3 ml Q8H RESP THERAPY HHN Last administered on 10/23/18 07:48; Admin Dose 3 ML; Start 10/22/18 at 00:00 Loratadine (Claritin) 10 mg DAILY PO Last administered on 10/26/18 10:20; Admin Dose 10 MG; Start 10/22/18 at 09:00 Magnesium Hydroxide (Milk Of Mag) 30 ml DAILY PO Last administered on 10/24/18 08:42; Admin Dose 30 ML; Start 10/22/18 at 09:00 Oxycodone HCl (Oxycontin) 20 mg Q12 PO Last administered on 10/26/18 10:20; A dmin Dose 20 MG; Start 10/22/18 at 09:00 Pantoprazole (Protonix Tab) 40 mg AC BREAKFAST PO Last administered on 10/26/18 10:21; Admin Dose 40 MG; Start 10/22/18 at 07:25 Polyethylene Glycol (Miralax) 17 gm DAILY PO ; Start 10/22/18 at 09:00 Simethicone (Mylicon) 80 mg Q8H PO Last administered on 10/26/18 10:20; Admin Dose 80 MG; Start 10/21/18 at 23:30 Spironolactone (Aldactone) 50 mg DAILY PO Last administered on 10/26/18 10:26; Admin Dose 50 MG; Start 10/22/18 at 09:00 Zolpidem Tartrate (Ambien) 10 mg HS PRN PO INSOMNIA Last administered on 10/22/18 21:20; Admin Dose 10 MG; Start 10/21/18 at 23:30 Morphine Sulfate (morphine) 2 mg Q4H PRN IV SEVERE PAIN LEVEL 7-10 Last administered on 10/23/18 14:15; Admin Dose 2 MG; Start 10/22/18 at 01:30 Potassium Chloride (Klor-Con 20) 20 meq BID PO Last administered on 10/26/18 10:20; Admin Dose 20 MEQ; Start 10/22/18 at 13:00 Furosemide (Lasix) 40 mg BID DIURETICS PO Last administered on 10/26/18 05:36; Admin Dose 40 MG; Start 10/26/18 at 06:00 Assessment/Plan Hospital Course (Demo Recall) 1. Congestive heart failure exacerbation would be diastolic, acute on chronic by most recent echo.-now s/p echo this admit with EF 60/small effusion - better now, responding to diuresis. BETTER overall- very robust urine output - improved CHF. 2. Abnormal electrocardiogram with low voltage, rule out pericardial effusion - stable, no signs of tamponade. Treated. 3. Hypertension-currently borderline hypotension - treated with meds. BP stable overall. 4. Metastatic breast carcinoma- responded to chemo per Dr. Fernández - still poor prognosis. 5. History of pathologic fractures of the leg, status post open reduction and internal fixation - pain controlled. 6. Anemia. 7. Increased BNP consistent with patient's congestive heart failure. 8. Pericardial effusion-small by echo EMILY NELSON MD October 26, 2018 14:34
--- NOTE | 2018-10-26 18:54 | PN ---
Date/Time of Note Date/Time of Note DATE: 10/26/18 TIME: 18:53 Assessment/Plan VTE Prophylaxis Risk score (from Nsg)>0 risk: 4 SCD applied (from Ns): No SCD contraindicated: other (on) Pharmacological prophylaxis: LMWH Lines/Catheters IV Catheter Type (from Nrsg): Peripheral IV Central line still needed: No Urinary Cath still in place: No Reason Cath still needed: urinary retention Assessment/Plan Assessment/Plan 1. PRIMARY ADENOCARCINOMA of the left breast. MULTIPLE BONY METS, PULMONARY METS;LIVER METS CHEMO ON HOLD; PT HAS A VERY GOOD RESPONSE TO CHEMO AND AI 2. Severe pain in the interscapular and lumbar sacral area most probably metastatic lesion possible femoral fracture. pathologic fracture of T9 with 60% of loss of height. Neurosurgical f/u. 3. Obesity. 4. Weight loss 60 pounds during the last 2 years by diet 5. PMS. 6. Myopia. 7. Anemia chronic disease with a drop of her hematocrit to 27; Latest results 28. Will recheck tomorrow;Leukopenia.Thrombocytopenia; 8. Anxiety disorder. Claustrophobia. Increase Ativan to 1 mg every 8 as needed at Lexapro 10 mg daily. 9. Posttraumatic stress disorder. 10. Pain in the left forearm with a history of fracture of ulna and radius. 11. Tachycardia 12. Hypoxemia at night improved after 2 L of nasal cannula oxygen. 13. Deconditioning 14. 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 MRI: 09/28/18:diffuse osseous metastatic disease with multiple pathologic compression fractures at least involving the T4, T5, T7, T9 and T11 levels. There is likely mild cortical breakthrough at several levels resulting in mild central canal narrowing. No gross evidence of cord compression is seen.. 15. Pain syndrome. Today the most painful zone is in the right hip area. 16. Hyponatremia-corrected; hypokalemia now hyperkalemic 5.2 hold potassium p.o. today and hold Aldactone today.Recheck and sodium chloride daily with the dose to 4 mg today 17. Leucopenia-improved. 18. Neutropenia with occasional fever and chills. Last chemotherapy 5 days ago. 19. Hypoalbuminemia. 20.Right sided cp after catheter insertion and correction less discomfort. 21. Decreased edema both lower extremities with [id number] with Pleural and Pericardial effusion. 22. pain syndrome 23.bilateral pleural effusions ; s/p left thoracentesis, During the procedure the probe of the u/s was placed to the right side of the chest which showed only minimal amount of liquid on the right pleural cavity. Reaccumulation of the pleural fluid. Plan to tap from the right side tomorrow a.m. 24. Systolic over diastolic congestive heart failure with a right more than left lower extremity swelling with no DVT in latest venous Doppler. 25. Swelling of the left forearm-persist. Cellulitis of the left forearm with increased edema anteriorly.-Today it is less edematous 26. Pathologic fracture of the right hip;s/p hemiarthroplasty of right hip . 27. Dizziness 28. Chills. 29. Memory impairment. Result Diagram: 10/26/18 0455 10/26/18 0505 Results 24hrs Laboratory Tests Test 10/26/18 04:55 10/26/18 05:05 White Blood Count 3.4 L Red Blood Count 3.01 L Hemoglobin 9.7 L Hematocrit 30.3 L Mean Corpuscular Volume 100.7 Mean Corpuscular Hemoglobin 32.2 Mean Corpuscular Hemoglobin Concent 32.0 Red Cell Distribution Width 17.3 H Platelet Count 183 Mean Platelet Volume 9.1 Immature Granulocytes % 0.000 L Neutrophils % 46.7 Lymphocytes % 31.7 Monocytes % 16.6 H Eosinophils % 4.1 Basophils % 0.9 Nucleated Red Blood Cells % 0.0 Immature Granulocytes # 0.000 Neutrophils # 1.6 Lymphocytes # 1.1 Monocytes # 0.6 Eosinophils # 0.1 Basophils # 0.0 Nucleated Red Blood Cells # 0.0 Sodium Level 137 Potassium Level 4.3 Chloride Level 93 L Carbon Dioxide Level 36 H Anion Gap 8 Blood Urea Nitrogen 24 H Creatinine 0.86 Est Glomerular Filtrat Rate mL/min > 60 Glucose Level 101 Calcium Level 9.6 Phosphorus Level 4.7 Magnesium Level 1.9 Subjective 24 Hr Interval Summary Free Text/Dictation Sob improved. Decreased edema. Constitutional: improved, diaphoresis, poor po, requiring O2; No no complaints, No chills, No disoriented, No febrile, No requiring IVF, No other Eyes: No no complaints, No pain, No discharge, No redness, No visual change, No other ENT: No no complaints, No bleeding, No pain, No congestion, No discharge, No dysphagia, No sore throat, No other Respiratory: pleuritic pain, shortness of breath; No no complaints, No pain, No cough, No sputum, No wheezing, No other Cardiovascular: chest pain, edema; No no complaints, No lightheadedness, No orthopenea, No palpitations, No paroxysmal nocturnal dyspnea, No other Gastrointestinal: constipation, decreased appetite, flatus, nausea; No no complaints, No pain, No blood, No diarrhea, No passing stool, No vomiting, No other Genitourinary: dysuria; No no complaints, No bleeding, No discharge, No flank pain, No hematuria, No other Musculoskeletal: back pain, bone/joint pain; No no complaints, No neck pain, No restricted range of motion, No swelling, No other Skin: bruising, pruritis, rash; No no complaints, No erythema, No laceration, No skin lesions, No other Neurologic: headache, syncope; No no complaints, No confusion, No dizziness, No focal-weakness, No seizure, No other Endocrine: dry skin; No no complaints, No polyuria, No polydypsia, No temp intolerance, No other Lymphatic: No no complaints, No adenopathy, No tender nodes, No lymphadema, No other Psychological: anxiety, confusion; No no complaints, No nl mood/affect, No depression, No suicidal, No other Immunologic: No no complaints, No immunodeficiency, No pruritis, No rhinitis, No urticaria, No other Exam/Review of Systems Exam Vitals Vital Signs Date Temp Pulse Resp B/P (MAP) Pulse Ox O2 O2 Flow FiO2 Time Delivery Rate 10/26/18 98.6 82 19 101/56 99 Nasal 14:16 (71) Cannula 10/26/18 2.0 08:12 10/23/18 30 16:30 Constitutional: alert, oriented, well developed, distress, frail, obese; No non-verbal, No other Psych: No no complaints, No nl mood/affect, No anxiety, No confusion, No depression, No suicidal, No other Head: normocephalic, atraumatic; No lacerations, No hematomas, No other Eyes: EOMI, nl lids, PERRL; No nl conjunctiva, No nl sclera, No icteric, No fundi, disc, No other ENMT: tympanic membranes; No nl external ears & nose, No nl lips & teeth, No nl nasal mucosa & septum, No mucosa pink and moist, No intubated, No other Neck: jvd, bruits, thyromegaly; No supple, No non-tender, No masses, No nuchal rigidity, No other Respiratory: congested cough, crackles/rales, diminished breath sounds, respirations; No clear to auscultation, No normal air movement, No intercostal retraction, No labored breathing, No tactile fremitus, No wheezing, No other Cardiovascular: regular rate and rhythm, nl pulses, bruits, edema (Much less edematous lower abdominal area comparing with the yesterday and evidence of decreased edema both lower extremities and left upper extremity to.); No diastolic murmur, No gallop, No irregular rhythm, No jugular venous distention (JVD), No murmurs/extra sounds, No rub, No systolic murmur, No S3, No S4, No other Gastrointestinal: soft, ascites, bowel sounds; No nl liver, spleen, No non-tender, No distended, No firm, No hepatomegaly, No mass, No rebound or guarding, No splenomegaly, No surgical scars, No tender, No other Genitourinary - Female: nl adnexae, nl external genitalia; No CMT, No CVA tenderness, No uterus, No other Musculoskeletal: No nl extremities to inspection, No nl gait and stance, No joint tenderness, No muscle tone, No muscle weakness, No range of motion, No spine non-tender, No swelling, No other Extremities: normal pulses, pitting pedal edema 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: [employer] 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, nl mental status; No nl speech, No nl strength, No confused, No DTR's symmetric, No focal weakness, No lethargic, No numbness, No reflexes, No unresponsive, No other Results Results 24hrs Laboratory Tests Test 10/26/18 04:55 10/26/18 05:05 White Blood Count 3.4 L Red Blood Count 3.01 L Hemoglobin 9.7 L Hematocrit 30.3 L Mean Corpuscular Volume 100.7 Mean Corpuscular Hemoglobin 32.2 Mean Corpuscular Hemoglobin Concent 32.0 Red Cell Distribution Width 17.3 H Platelet Count 183 Mean Platelet Volume 9.1 Immature Granulocytes % 0.000 L Neutrophils % 46.7 Lymphocytes % 31.7 Monocytes % 16.6 H Eosinophils % 4.1 Basophils % 0.9 Nucleated Red Blood Cells % 0.0 Immature Granulocytes # 0.000 Neutrophils # 1.6 Lymphocytes # 1.1 Monocytes # 0.6 Eosinophils # 0.1 Basophils # 0.0 Nucleated Red Blood Cells # 0.0 Sodium Level 137 Potassium Level 4.3 Chloride Level 93 L Carbon Dioxide Level 36 H Anion Gap 8 Blood Urea Nitrogen 24 H Creatinine 0.86 Est Glomerular Filtrat Rate mL/min > 60 Glucose Level 101 Calcium Level 9.6 Phosphorus Level 4.7 Magnesium Level 1.9 Medications Medication Current Medications Acetaminophen (Tylenol Tab) 650 mg Q4H PRN PO PAIN LEVEL 1-03/27; Start 10/21/18 at 23:30 Anastrozole (Arimidex) 1 mg DAILY PO Last administered on 10/26/18 10:24; Admin Dose 1 MG; Start 10/22/18 at 09:00 Benazepril HCl (Lotensin) 5 mg DAILY PO Last administered on 10/26/18 10:25; Admin Dose 5 MG; Start 10/22/18 at 09:00 Bisacodyl (Dulcolax Supp) 10 mg Q8 MA Last administered on 10/24/18 16:03; Admin Dose 10 MG; Start 10/22/18 at 06:00 Carvedilol (Coreg) 3.125 mg BID PO Last administered on 10/26/18 10:21; Admin Dose 3.125 MG; Start 10/22/18 at 09:00 Docusate Sodium (Colace) 100 mg BID PO Last administered on 10/26/18 10:20; Admin Dose 100 MG; Start 10/22/18 at 09:00 Escitalopram Oxalate (Lexapro) 10 mg DAILY PO Last administered on 10/26/18 10:20; Admin Dose 10 MG; Start 10/22/18 at 09:00 Albuterol/ Ipratropium (Duoneb) 3 ml Q8H RESP THERAPY HHN Last administered on 10/23/18 07:48; Admin Dose 3 ML; Start 10/22/18 at 00:00 Loratadine (Claritin) 10 mg DAILY PO Last administered on 10/26/18 10:20; Admin Dose 10 MG; Start 10/22/18 at 09:00 Magnesium Hydroxide (Milk Of Mag) 30 ml DAILY PO Last administered on 10/24/18 08:42; Admin Dose 30 ML; Start 10/22/18 at 09:00 Oxycodone HCl (Oxycontin) 20 mg Q12 PO Last administered on 10/26/18 10:20; Admin Dose 20 MG; Start 10/22/18 at 09:00 Pantoprazole (Protonix Tab) 40 mg AC BREAKFAST PO Last administered on 10/26/18 10:21; Admin Dose 40 MG; Start 10/22/18 at 07:25 Polyethylene Glycol (Miralax) 17 gm DAILY PO ; Start 10/22/18 at 09:00 Simethicone (Mylicon) 80 mg Q8H PO Last administered on 10/26/18 17:32; Admin Dose 80 MG; Start 10/21/18 at 23:30 Spironolactone (Aldactone) 50 mg DAILY PO Last administered on 10/26/18 10:26; Admin Dose 50 MG; Start 10/22/18 at 09:00 Zolpidem Tartrate (Ambien) 10 mg HS PRN PO INSOMNIA Last administered on 10/22/18 21:20; Admin Dose 10 MG; Start 10/21/18 at 23:30 Morphine Sulfate (morphine) 2 mg Q4H PRN IV SEVERE PAIN LEVEL 7-10 Last admini stered on 10/23/18 14:15; Admin Dose 2 MG; Start 10/22/18 at 01:30 Potassium Chloride (Klor-Con 20) 20 meq BID PO Last administered on 10/26/18 10:20; Admin Dose 20 MEQ; Start 10/22/18 at 13:00 Furosemide (Lasix) 40 mg BID DIURETICS PO Last administered on 10/26/18 17:32; Admin Dose 40 MG; Start 10/26/18 at 06:00 RUSS JEROME MD October 26, 2018 18:54
[2018-10-26 19:05] VITALS: BP 109/61; PULSE 89; RESP 20
[2018-10-26] MEDS: ACETAMINOPHEN 325 MG TAB PO PRN (20:23)
--- NOTE | 2018-10-26 22:38 | CONS ---
Assessment/Plan Assessment/Plan Hospital Course (Demo Recall) METASTATIC BREAST CANCER WITH PRIMARY ADENOCARCINOMA IN the left breast. MULTIPLE BONY METS, PULMONARY METS, LIVER METS CHEMO ON HOLD PT HAS A VERY GOOD RESPONSE TO CHEMO AND AI CONT AI FOR NOW CT ABD FOR RESTAGING 08.27.18- noted , stable Leukopenia- post chemo, IMPROVING post NEUPOGEN monitor closely post Neutropenia with occasional fever and chills. - resolved Anemia chronic disease SOB PLEURAL EFFUSIONS, NEG CYTOLOGY POST thoracentesis Fluid overload diuretic cardiology F-UP Severe pain in the interscapular and lumbar sacral area most probably metastatic lesion possible femoral fracture. pathologic fracture of T9 with 60% of loss of height. Bony pain with multiple bony mets post XRT will d/w dr Ocampo Obesity. Weight loss 60 pounds during the last 2 years PMS. Myopia. Anxiety disorder. Claustrophobia. Posttraumatic stress disorder. Pain in the left forearm with a history of fracture of ulna and radius. Tachycardia Hypoxemia at night marginal improved after 2 L of nasal cannula oxygen. Deconditioning Pain syndrome. Today the most painful zone is in the right hip area. X-ray did not show any fractures. Hyponatremia- resolved Hypoalbuminemia Right sided cp after catheter insertion and correction less discomfort. Decreased edema both lower extremities with hypotension-improving Swelling of the left forearm-persist. Consultation Date/Type/Reason Admit Date/Time October 21, 2018 at 17:39 Initial Consult Date 10/21/18 Type of Consult [facility] Requesting Provider: RUSS JEROME MD Date/Time of Note DATE: 10/26/18 TIME: 22:37 24 HR Interval Summary Free Text/Dictation all noted weak + PAIN + Sob Exam/Review of Systems Exam Vitals Vital Signs Date Temp Pulse Resp B/P (MAP) Pulse Ox O2 O2 Flow FiO2 Time Delivery Rate 10/26/18 98.4 89 20 109/61 91 19:05 (77) 10/26/18 Nasal 14:16 Cannula 10/26/18 2.0 08:12 10/23/18 30 16:30 Exam HEENT: Head is normocephalic. NECK: Supple. HEART: Regular rate. LUNGS: Show diminished breath sounds at the base. ABDOMEN: Soft, nontender to palpation. No rebound or guarding. EXTREMITIES: Negative for clubbing, cyanosis, positive edema. DERMATOLOGIC: No rashes. MUSCULOSKELETAL: No joint effusion. NEUROLOGIC: No change in exam. Results Result Diagram: 10/26/18 0455 10/26/18 0505 Results 24hrs Laboratory Tests Test 10/26/18 04:55 10/26/18 05:05 White Blood Count 3.4 L Red Blood Count 3.01 L Hemoglobin 9.7 L Hematocrit 30.3 L Mean Corpuscular Volume 100.7 Mean Corpuscular Hemoglobin 32.2 Mean Corpuscular Hemoglobin Concent 32.0 Red Cell Distribution Width 17.3 H Platelet Count 183 Mean Platelet Volume 9.1 Immature Granulocytes % 0.000 L Neutrophils % 46.7 Lymphocytes % 31.7 Monocytes % 16.6 H Eosinophils % 4.1 Basophils % 0.9 Nucleated Red Blood Cells % 0.0 Immature Granulocytes # 0.000 Neutrophils # 1.6 Lymphocytes # 1.1 Monocytes # 0.6 Eosinophils # 0.1 Basophils # 0.0 Nucleated Red Blood Cells # 0.0 Sodium Level 137 Potassium Level 4.3 Chloride Level 93 L Carbon Dioxide Level 36 H Anion Gap 8 Blood Urea Nitrogen 24 H Creatinine 0.86 Est Glomerular Filtrat Rate mL/min > 60 Glucose Level 101 Calcium Level 9.6 Phosphorus Level 4.7 Magnesium Level 1.9 Medications Medication Current Medications Acetaminophen (Tylenol Tab) 650 mg Q4H PRN PO PAIN LEVEL 1-03/27 Last administered on 10/26/18 20:23; Admin Dose 650 MG; Start 10/21/18 at 23:30 Anastrozole (Arimidex) 1 mg DAILY PO Last administered on 10/26/18 10:24; Admin Dose 1 MG; Start 10/22/18 at 09:00 Benazepril HCl (Lotensin) 5 mg DAILY PO Last administered on 10/26/18 10:25; Admin Dose 5 MG; Start 10/22/18 at 09:00 Bisacodyl (Dulcolax Supp) 10 mg Q8 IN Last administered on 10/24/18 16:03; Admin Dose 10 MG; Start 10/22/18 at 06:00 Carvedilol (Coreg) 3.125 mg BID PO Last administered on 10/26/18 10:21; Admin Dose 3.125 MG; Start 10/22/18 at 09:00 Docusate Sodium (Colace) 100 mg BID PO Last administered on 10/26/18 20:23; Admin Dose 100 MG; Start 10/22/18 at 09:00 Escitalopram Oxalate (Lexapro) 10 mg DAILY PO Last administered on 10/26/18 10:20; Admin Dose 10 MG; Start 10/22/18 at 09:00 Albuterol/ Ipratropium (Duoneb) 3 ml Q8H RESP THERAPY HHN Last administered on 10/23/18 07:48; Admin Dose 3 ML; Start 10/22/18 at 00:00 Loratadine (Claritin) 10 mg DAILY PO Last administered on 10/26/18 10:20; Admin Dose 10 MG; Start 10/22/18 at 09:00 Magnesium Hydroxide (Milk Of Mag) 30 ml DAILY PO Last administered on 10/24/18 08:42; Admin Dose 30 ML; Start 10/22/18 at 09:00 Oxycodone HCl (Oxycontin) 20 mg Q12 PO Last administered on 10/26/18 20:24; Admin Dose 20 MG; Start 10/22/18 at 09:00 Pantoprazole (Protonix Tab) 40 mg AC BREAKFAST PO Last administered on 10/26/18 10:21; Admin Dose 40 MG; Start 10/22/18 at 07:25 Polyethylene Glycol (Miralax) 17 gm DAILY PO ; Start 10/22/18 at 09:00 Simethicone (Mylicon) 80 mg Q8H PO Last administered on 10/26/18 17:32; Admin Dose 80 MG; Start 10/21/18 at 23:30 Spironolactone (Aldactone) 50 mg DAILY PO Last administered on 10/26/18 10:26; Admin Dose 50 MG; Start 10/22/18 at 09:00 Zolpidem Tartrate (Ambien) 10 mg HS PRN PO INSOMNIA Last administered on 10/22/18 21:20; Admin Dose 10 MG; Start 10/21/18 at 23:30 Morphine Sulfate (morphine) 2 mg Q4H PRN IV SEVERE PAIN LEVEL 7-10 Last administered on 10/23/18 14:15; Admin Dose 2 MG; Start 10/22/18 at 01:30 Potassium Chloride (Klor-Con 20) 20 meq BID PO Last administered on 10/26/18 20:25; Admin Dose 20 MEQ; Start 10/22/18 at 13:00 Furosemide (Lasix) 40 mg BID DIURETICS PO Last administered on 10/26/18at 17:32; Admin Dose 40 MG; Start 10/26/18 at 06:00 DES DUNAWAY MD October 26, 2018 22:38
[2018-10-27 02:07] VITALS: BP 107/59; PULSE 80; RESP 20
[2018-10-27] MEDS: ALBUTEROL/IPRATROPIUM (NEB) 3 ML AMP HHN SCH ×4 (03:01→23:49)
[2018-10-27] MEDS: PANTOPRAZOLE (EC) 40 MG TAB PO SCH (05:49)
[2018-10-27] MEDS: FUROSEMIDE 40 MG TAB PO SCH ×3 (05:49→20:59)
[2018-10-27] MEDS: BISACODYL 10 MG SUPP PR SCH ×3 (06:00→22:00)
[2018-10-27] MEDS: POTASSIUM CHLORIDE (SR) 20 MEQ TAB PO SCH ×2 (08:13→20:59)
[2018-10-27] MEDS: DOCUSATE SODIUM 100 MG CAP PO SCH ×2 (08:13→20:59)
[2018-10-27] MEDS: LORATADINE 10 MG TAB PO SCH (08:13)
[2018-10-27] MEDS: oxyCODONE (CR) 20 MG TAB [oxyCONTIN] PO SCH ×2 (08:14→20:57)
[2018-10-27] MEDS: SPIRONOLACTONE 50 MG TAB PO SCH (08:14)
[2018-10-27] MEDS: ESCITALOPRAM 10 MG TAB PO SCH (08:14)
[2018-10-27] MEDS: BENAZEPRIL 5 MG TAB PO SCH (08:15)
[2018-10-27] MEDS: POLYETHYLENE GLYCOL 17 GM PACKET PO SCH (08:16)
[2018-10-27] MEDS: ANASTROZOLE 1 MG TAB PO SCH (08:16)
[2018-10-27] MEDS: MAGNESIUM HYDROXIDE 30ML CUP PO SCH (08:16)
[2018-10-27 08:33] VITALS: BP 117/63; PULSE 89; RESP 19
--- NOTE | 2018-10-27 11:22 | CONS ---
Assessment/Plan Assessment/Plan Hospital Course (Demo Recall) 1. Acute hypoxemic respiratory failure, etiology is secondary to bilateral pleural effusions. The patient is status post thoracentesis. Respiratory status is improving. Continue to monitor. 2. Volume overload. Etiology is multifactorial secondary to diastolic heart failure, unclear if there is a component of portal hypertension due to metastatic disease, questionable lymphogenic spread and obstruction. cont lasix po 3. Anemia. Monitor hemoglobin and hematocrit levels. 4. Breast cancer with metastasis to the liver, spine. Continue to monitor. Follow up with oncology. 5. Hip fracture, status post arthroplasty. Continue physical therapy. 6. Pleural effusion, status post thoracentesis. 7. Chronic pain syndrome. 8. History of leukemia, improved. Consultation Date/Type/Reason Admit Date/Time October 21, 2018 at 17:39 Initial Consult Date 10/21/18 Requesting Provider: RUSS JEROME MD Date/Time of Note DATE: 10/27/18 TIME: 11:21 24 HR Interval Summary Free Text/Dictation shortness of breath improving no n/v. urinating without issues gen nad cv rrr pulm fine bibasilar rales abd soft, nd, nt +bs ext: no edema Exam/Review of Systems Exam Vitals Vital Signs Date Temp Pulse Resp B/P (MAP) Pulse Ox O2 O2 Flow FiO2 Time Delivery Rate 10/27/18 98.3 89 19 117/63 99 Room Air 08:33 (81) 10/27/18 2.0 08:00 10/23/18 30 16:30 Intake and Output 10/26/18 10/26/18 10/27/18 1515:00 23:00 07:00 IntakeIntake Total 200 ml 250 ml OutputOutput Total 1550 ml 400 ml BalanceBalance -1350 ml -150 ml Results Result Diagram: 10/26/18 0455 10/26/18 0505 Medications Medication Current Medications Acetaminophen (Tylenol Tab) 650 mg Q4H PRN PO PAIN LEVEL 1-1010 Last administered on 10/26/18at 20:23; Admin Dose 650 MG; Start 10/21/18 at 23:30 Anastrozole (Arimidex) 1 mg DAILY PO Last administered on 10/27/18at 08:16; Admin Dose 1 MG; Start 10/22/18 at 09:00 Benazepril HCl (Lotensin) 5 mg DAILY PO Last administered on 10/26/18 10:25; Admin Dose 5 MG; Start 10/22/18 at 09:00 Bisacodyl (Dulcolax Supp) 10 mg Q8 MT Last administered on 10/26/18 23:49; Admin Dose 10 MG; Start 10/22/18 at 06:00 Carvedilol (Coreg) 3.125 mg BID PO Last administered on 10/26/18 10:21; Admin Dose 3.125 MG; Start 10/22/18 at 09:00 Docusate Sodium (Colace) 100 mg BID PO Last administered on 10/27/18 08:13; Admin Dose 100 MG; Start 10/22/18 at 09:00 Escitalopram Oxalate (Lexapro) 10 mg DAILY PO Last administered on 10/27/18 08:14; Admin Dose 10 MG; Start 10/22/18 at 09:00 Albuterol/ Ipratropium (Duoneb) 3 ml Q8H RESP THERAPY HHN Last administered on 10/27/18 03:01; Admin Dose 3 ML; Start 10/22/18 at 00:00 Loratadine (Claritin) 10 mg DAILY PO Last administered on 10/27/18 08:13; Admin Dose 10 MG; Start 10/22/18 at 09:00 Magnesium Hydroxide (Milk Of Mag) 30 ml DAILY PO Last administered on 10/24/18 08:42; Admin Dose 30 ML; Start 10/22/18 at 09:00 Oxycodone HCl (Oxycontin) 20 mg Q12 PO Last administered on 10/27/18 08:14; Admin Dose 20 MG; Start 10/22/18 at 09:00 Pantoprazole (Protonix Tab) 40 mg AC BREAKFAST PO Last administered on 10/27/18 05:49; Admin Dose 40 MG; Start 10/22/18 at 07:25 Polyethylene Glycol (Miralax) 17 gm DAILY PO ; Start 10/22/18 at 09:00 Simethicone (Mylicon) 80 mg Q8H PO Last administered on 10/27/18 08:13; Admin Dose 80 MG; Start 10/21/18 at 23:30 Spironolactone (Aldactone) 50 mg DAILY PO Last administered on 10/27/18 08:14; Admin Dose 50 MG; Start 10/22/18 at 09:00 Zolpidem Tartrate (Ambien) 10 mg HS PRN PO INSOMNIA Last administered on 10/22/18 21:20; Admin Dose 10 MG; Start 10/21/18 at 23:30 Morphine Sulfate (morphine) 2 mg Q4H PRN IV SEVERE PAIN LEVEL 7-10 Last administered on 10/23/18 14:15; Admin Dose 2 MG; Start 10/22/18 at 01:30 Potassium Chloride (Klor-Con 20) 20 meq BID PO Last administered on 10/27/18 08:13; Admin Dose 20 MEQ; Start 10/22/18 at 13:00 Furosemide (Lasix) 40 mg BID DIURETICS PO Last administered on 10/27/18 05:49; Admin Dose 40 MG; Start 10/26/18 at 06:00 DAMON GUERIN MD October 27, 2018 11:22
--- NOTE | 2018-10-27 11:49 | PN ---
Date/Time of Note Date/Time of Note DATE: 10/27/18 TIME: 11:45 Assessment/Plan VTE Prophylaxis Risk score (from Nsg)>0 risk: 8 SCD applied (from Ns): Yes SCD contraindicated: other (on) Pharmacological prophylaxis: LMWH Lines/Catheters IV Catheter Type (from Nrsg): [place] [employer] line still needed: No Urinary Cath still in place: No Assessment/Plan Assessment/Plan 1. PRIMARY ADENOCARCINOMA of the left breast. MULTIPLE BONY METS, PULMONARY METS;LIVER METS CHEMO ON HOLD; PT HAS A VERY GOOD RESPONSE TO CHEMO AND AI 2. Severe pain in the interscapular and lumbar sacral area most probably metastatic lesion possible femoral fracture. pathologic fracture of T9 with 60% of loss of height. Neurosurgical f/u. 3. Obesity. 4. Weight loss 60 pounds during the last 2 years by diet 5. PMS. 6. Myopia. 7. Anemia chronic disease with a drop of her hematocrit to 27; Latest results 28. Will recheck tomorrow;Leukopenia.Thrombocytopenia; 8. Anxiety disorder. Claustrophobia. Increase Ativan to 1 mg every 8 as needed at Lexapro 10 mg daily. 9. Posttraumatic stress disorder. 10. Pain in the left forearm with a history of fracture of ulna and radius. 11. Tachycardia 12. Hypoxemia at night marginal improved after 2 L of nasal cannula oxygen. 13. Deconditioning 14. 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 MRI: 09/28/18:diffuse osseous metastatic disease with multiple pathologic compression fractures at least involving the T4, T5, T7, T9 and T11 levels. There is likely mild cortical breakthrough at several levels resulting in mild central canal narrowing. No gross evidence of cord compression is seen.. 15. Pain syndrome. Today the most painful zone is in the right hip area. 16. Hyponatremia-corrected; hypokalemia now hyperkalemic 5.2 hold potassium p. o. today and hold Aldactone today.Recheck and sodium chloride daily with the dose to 4 mg today 17. Leucopenia-improved. 18. Neutropenia with occasional fever and chills. Last chemotherapy 5 days ago. 19. Hypoalbuminemia. 20.Right sided cp after catheter insertion and correction less discomfort. 21. Decreased edema both lower extremities with [id number] with Pleural and Pericardial effusion. 22. pain syndrome 23.bilateral pleural effusions ; s/p left thoracentesis, During the procedure the probe of the u/s was placed to the right side of the chest which showed only minimal amount of liquid on the right pleural cavity. Reaccumulation of the pleural fluid. Plan to tap from the right side tomorrow a.m. 24. Systolic over diastolic congestive heart failure with a right more than left lower extremity swelling with no DVT in latest venous Doppler. 25. Swelling of the left forearm-persist. Cellulitis of the left forearm with increased edema anteriorly.-Today it is less edematous 26. Pathologic fracture of the right hip;s/p hemiarthroplasty of right hip . 27. Dizziness 28. Chills. 29. Memory impairment. Result Diagram: 10/26/18 0455 10/26/18 0505 Subjective 24 Hr Interval Summary Free Text/Dictation Shortness of breath. For the decrease of edema of both lower extremities. Decrease edema over left upper extremity. At the middle of the night felt worsening of shortness of breath I was unable to grasp the air. Dizziness when getting up. It is very hard for me to get up from sitting position is very even harder than that while I am going to the arm chair to sit down the pain intensity at that moment is very severe. Mainly in the back region and also right hip area. I got more than usual sputum production. No hemoptysis no green or yellow color. Constitutional: improved, poor po, requiring O2; No no complaints, No chills, No diaphoresis, No disoriented, No febrile, No requiring IVF, No other Eyes: No no complaints, No pain, No discharge, No redness, No visual change, No other ENT: congestion; No no complaints, No bleeding, No pain, No discharge, No dysphagia, No sore throat, No other Respiratory: cough, shortness of breath; No no complaints, No pain, No pleuritic pain, No sputum, No wheezing, No other Cardiovascular: chest pain, edema, lightheadedness, orthopenea, palpitations, paroxysmal nocturnal dyspnea; No no complaints, No other Gastrointestinal: constipation, decreased appetite, flatus, nausea, passing stool; No no complaints, No pain, No blood, No diarrhea, No vomiting, No other Genitourinary: No no complaints, No bleeding, No dysuria, No discharge, No flank pain, No hematuria, No other Musculoskeletal: back pain, bone/joint pain; No no complaints, No neck pain, No restricted range of motion, No swelling, No other Skin: pruritis, rash; No no complaints, No bruising, No erythema, No laceration, No skin lesions, No other Neurologic: dizziness, headache; No no complaints, No confusion, No focal-weakness, No syncope, No seizure, No other Endocrine: dry skin; No no complaints, No polyuria, No polydypsia, No temp intolerance, No other Lymphatic: No no complaints, No adenopathy, No tender nodes, No lymphadema, No other Psychological: anxiety, confusion; No no complaints, No nl mood/affect, No depression, No suicidal, No other Immunologic: No no complaints, No immunodeficiency, No pruritis, No rhinitis, No urticaria, No other Exam/Review of Systems Exam Vitals Vital Signs Date Temp Pulse Resp B/P (MAP) Pulse Ox O2 O2 Flow FiO2 Time Delivery Rate 10/27/18 98.3 89 19 117/63 99 Room Air 08:33 (81) 10/27/18 2.0 08:00 10/23/18 30 16:30 Intake and Output 10/26/18 10/26/18 10/27/18 1515:00 23:00 07:00 IntakeIntake Total 200 ml 250 ml OutputOutput Total 1550 ml 400 ml BalanceBalance -1350 ml -150 ml Constitutional: alert, oriented, well developed, distress, frail, obese Psych: nl mood/affect, anxiety, depression; No no complaints, No confusion, No suicidal, No other Head: normocephalic, atraumatic Eyes: EOMI, nl lids, PERRL; No nl conjunctiva, No nl sclera, No icteric, No fundi, disc, No other ENMT: No nl external ears & nose, No nl lips & teeth, No nl nasal mucosa & septum, No mucosa pink and moist, No intubated, No tympanic membranes, No other Neck: jvd, bruits, thyromegaly; No supple, No non-tender, No masses, No nuchal rigidity, No other Respiratory: congested cough, crackles/rales, labored breathing; No clear to auscultation, No normal air movement, No diminished breath sounds, No intercostal retraction, No respirations, No tactile fremitus, No wheezing, No other Cardiovascular: bruits, edema, systolic murmur; No regular rate and rhythm, No nl pulses, No diastolic murmur, No gallop, No irregular rhythm, No jugular venous distention (JVD), No murmurs/extra sounds, No rub, No S3, No S4, No other Gastrointestinal: soft, nl liver, spleen, bowel sounds; No non-tender, No ascites, No distended, No firm, No hepatomegaly, No mass, No rebound or guarding, No splenomegaly, No surgical scars, No tender, No other Genitourinary - Female: nl adnexae, nl external genitalia; No CMT, No CVA tenderness, No uterus, No other Musculoskeletal: nl gait and stance (Unable to move without a walker and making almost heroic effort to do it by herself but following her movements its a pparent that it is risky for her to level fall: I discussed with her.), joint tenderness; No nl extremities to inspection, No muscle tone, No muscle weakness, No range of motion, No spine non-tender, No swelling, No other Extremities: No normal pulses, No calf tenderness, No cyanosis, No clubbing, No edema, No pitting pedal edema, No palpable cord, No tenderness, No other 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: 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 WASHER 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, numbness; No nl mental status, No nl speech, No nl strength, No confused, No DTR's symmetric, No focal weakness, No lethargic, No reflexes, No unresponsive, No other Medications Medication Current Medications Acetaminophen (Tylenol Tab) 650 mg Q4H PRN PO PAIN LEVEL 1-03/27 Last administe red on 10/26/18at 20:23; Admin Dose 650 MG; Start 10/21/18 at 23:30 Anastrozole (Arimidex) 1 mg DAILY PO Last administered on 10/27/18 08:16; Admin Dose 1 MG; Start 10/22/18 at 09:00 Benazepril HCl (Lotensin) 5 mg DAILY PO Last administered on 10/26/18 10:25; Admin Dose 5 MG; Start 10/22/18 at 09:00 Bisacodyl (Dulcolax Supp) 10 mg Q8 CO Last administered on 10/26/18 23:49; Admin Dose 10 MG; Start 10/22/18 at 06:00 Carvedilol (Coreg) 3.125 mg BID PO Last administered on 10/26/18 10:21; Admin Dose 3.125 MG; Start 10/22/18 at 09:00 Docusate Sodium (Colace) 100 mg BID PO Last administered on 10/27/18 08:13; Admin Dose 100 MG; Start 10/22/18 at 09:00 Escitalopram Oxalate (Lexapro) 10 mg DAILY PO Last administered on 10/27/18 08:14; Admin Dose 10 MG; Start 10/22/18 at 09:00 Albuterol/ Ipratropium (Duoneb) 3 ml Q8H RESP THERAPY HHN Last administered on 10/27/18 03:01; Admin Dose 3 ML; Start 10/22/18 at 00:00 Loratadine (Claritin) 10 mg DAILY PO Last administered on 10/27/18 08:13; Adm in Dose 10 MG; Start 10/22/18 at 09:00 Magnesium Hydroxide (Milk Of Mag) 30 ml DAILY PO Last administered on 10/24/18 08:42; Admin Dose 30 ML; Start 10/22/18 at 09:00 Oxycodone HCl (Oxycontin) 20 mg Q12 PO Last administered on 10/27/18 08:14; Admin Dose 20 MG; Start 10/22/18 at 09:00 Pantoprazole (Protonix Tab) 40 mg AC BREAKFAST PO Last administered on 10/27/18 05:49; Admin Dose 40 MG; Start 10/22/18 at 07:25 Polyethylene Glycol (Miralax) 17 gm DAILY PO ; Start 10/22/18 at 09:00 Simethicone (Mylicon) 80 mg Q8H PO Last administered on 10/27/18 08:13; Admin Dose 80 MG; Start 10/21/18 at 23:30 Spironolactone (Aldactone) 50 mg DAILY PO Last administered on 10/27/18 08:14; Admin Dose 50 MG; Start 10/22/18 at 09:00 Zolpidem Tartrate (Ambien) 10 mg HS PRN PO INSOMNIA Last administered on 10/22 21:20; Admin Dose 10 MG; Start 10/21/18 at 23:30 Morphine Sulfate (morphine) 2 mg Q4H PRN IV SEVERE PAIN LEVEL 7-10 Last administered on 10/23/18 14:15; Admin Dose 2 MG; Start 10/22/18 at 01:30 Potassium Chloride (Klor-Con 20) 20 meq BID PO Last administered on 10/27/18 08:13; Admin Dose 20 MEQ; Start 10/22/18 at 13:00 Furosemide (Lasix) 40 mg BID DIURETICS PO Last administered on 10/27/18at 05:49; Admin Dose 40 MG; Start 10/26/18 at 06:00 RUSS JEROME MD October 27, 2018 11:49
--- NOTE | 2018-10-27 15:36 | CONS ---
Consult Date/Type/Reason Admit Date/Time October 21, 2018 at 17:39 Initial Consult Date 10/21/18 Requesting Provider: RUSS JEROME MD Date/Time of Note DATE: 10/27/18 TIME: 15:35 Subjective NO acute events - pt comfortable - no CP now - con't gentle diuresis. ROS: No fever, no chills, no nausea, no vomiting, no diarrhea/constipation - improved SOB Objective Vitals Vital Signs Date Temp Pulse Resp B/P (MAP) Pulse Ox O2 O2 Flow FiO2 Time Delivery Rate 10/27/18 98.3 89 19 117/63 99 Room Air 08:33 (81) 10/27/18 2.0 08:00 10/23/18 30 16:30 Intake and Output 10/26/18 10/26/18 10/27/18 1515:00 23:00 07:00 IntakeIntake Total 200 ml 250 ml OutputOutput Total 1550 ml 400 ml BalanceBalance -1350 ml -150 ml Exam General: WN/WD/NAD, AOx 3 HEENT: Unicetric/atraumatic/EOMI (follow commands) NECK: JVD elevated, no thyromegaly Lymph: no lymphadenopathy HEART: regular with no S3, II/ systolic murmur at apex, PMI L LUNGS: Coarse sounds ABD: soft, NT, ND, +BS : Intact Neuro: non focal SKIN: chronic changes EXT: 1-2 + edema Results/Medications Result Diagram: 10/26/18 0455 10/26/18 0505 Home Meds Reported Medications Tuberculin,Purif.prot.deriv. (Tubersol) 5 Tub Unit/0.1 Ml Vial, 0.1 ML ID, VIAL INJECT QHS EVERY 10 DAYS FOR PPD SCREENING FOR 11 DAYS READ IN 48 HOURS,IF NEGATIVE 2STEP IN 7 DAYS FROM FIRST DOSE. 10/21/18 Acetaminophen* (Tylenol*) 325 Mg Tablet, 650 MG PO Q4H PRN for PAIN LEVEL 1- 03/27, TAB 10/21/18 Spironolactone* (Aldactone*) 50 Mg Tablet, 50 MG PO DAILY, #30 TAB HOLD FOR SBP<110 10/21/18 Simethicone* (Mylicon*) 80 Mg Tab, 80 MG PO Q8H, TAB 10/21/18 Olopatadine* (Patanol* Ophth) 0.1% - 5 Ml Drops, 1 DROP BOTH EYES BID, EA 10/21/18 Hydrocodone/Acetaminophen (Barney 10-325 Tablet) 1 Each Tablet, 1 EACH PO Q4H, TAB 10/21/18 Loratadine* (Loratadine*) 10 Mg Tablet, 10 MG PO DAILY for FOR 3 MONTHS, #30 TAB 10/21/18 Lidocaine (Lidocaine) 1 Each Adh..patch, 1 EACH TP DAILY 10/21/18 Ipratropium-Albuterol (Ipratropium-Albuterol) 0.5-3 Mg/3 Ml Ampul.neb, 3 ML INHALATION Q8H, #30 VIAL 10/21/18 Furosemide* (Furosemide*) 40 Mg Tablet, 40 MG PO BID, TAB HOLD FOR SBP<110 10/21/18 Na Phos,M-B/Na Phos,Di-Ba (Fleet Enema Extra) Unknown Strength Enema, 1 APPLIC RC NEEDED for CONSTIPATION, ENEMA 10/21/18 Bisacodyl (Dulcolax) 10 Mg Supp.rect, 10 MG RC NEEDED, SUPP.RECT 10/21/18 Potassium Chloride* (Potassium Chloride*) 20 Meq Tablet.er, 20 MEQ PO DAILY, TAB.SA 09/09/18 Pantoprazole* (Pantoprazole*) 40 Mg Tablet.dr, 40 MG PO AC BREAKFAST, TAB 08/22/18 Oxycodone Hcl* (Oxycontin*) 20 Mg Tab.er.12h, 20 MG PO Q12, TAB 08/22/18 Amlodipine Besylate* (Norvasc*) 5 Mg Tablet, 5 MG PO DAILY, TAB HOLD FOR SBP <110. 08/22/18 Polyethylene Glycol* (Miralax*) 17 Gm Powd.pack, 17 GM PO DAILY, #60 PACKET 08/22/18 Magnesium Hydroxide* (Milk Of Magnesia*) 400 Mg/5 Ml Oral.susp, 30 ML PO DAILY, ML 08/22/18 Escitalopram Oxalate* (Lexapro*) 10 Mg Tablet, 10 MG PO DAILY, #30 TAB 08/22/18 Docusate Sodium* (Colace*) 100 Mg Capsule, 100 MG PO BID, #60 CAP 08/22/18 Carvedilol* (Carvedilol*) 3.125 Mg Tablet, 3.125 MG PO BID, #60 TAB HOLD FOR SBP <110 OR DC <60. GIVE WITH FOOD. 08/22/18 Benazepril Hcl* (Benazepril Hcl*) 5 Mg Tablet, 5 MG PO DAILY, #60 TAB HOLD FOR SBP <110. 08/22/18 Anastrozole* (Arimidex*) 1 Mg Tablet, 1 MG PO DAILY, #30 TAB 08/22/18 Discontinued Reported Medications Epoetin Cr (Procrit) 4,000 Unit/1 Ml Vial, 4000 UNIT IJ Q FRI, VIAL 7:00AM-7:00PM,HOLD IF HGB>10 09/09/18 Ondansetron Hcl* (Zofran*) 4 Mg Tab, 4 MG PO Q6H PRN for NAUSEA AND OR VOMITING, TAB 08/22/18 Furosemide* (Furosemide*) 20 Mg Tablet, 20 MG PO DAILY, #60 TAB HOLD FOR SBP <110. 08/22/18 Lactose-Free Food (Boost High Protein) 237 Ml Liquid, 120 ML PO BID 08/22/18 Acetaminophen* (Acetaminophen*) 500 MG Extra Strength Tablet, 500 MG PO Q6H PRN for PAIN AND OR ELEVATED TEMP, TAB 08/22/18 Medications Current Medications Acetaminophen (Tylenol Tab) 650 mg Q4H PRN PO PAIN LEVEL 1-03/27 Last administered on 10/26/18at 20:23; Admin Dose 650 MG; Start 10/21/18 at 23:30 Anastrozole (Arimidex) 1 mg DAILY PO Last administered on 10/27/18at 08:16; Admin Dose 1 MG; Start 10/22/18 at 09:00 Benazepril HCl (Lotensin) 5 mg DAILY PO Last administered on 10/26/18at 10:25; Admin Dose 5 MG; Start 10/22/18 at 09:00 Bisacodyl (Dulcolax Supp) 10 mg Q8 DC Last administered on 10/27/18at 12:20; Admin Dose 10 MG; Start 10/22/18 at 06:00 Carvedilol (Coreg) 3.125 mg BID PO Last administered on 10/26/18at 10:21; Admin Dose 3.125 MG; Start 10/22/18 at 09:00 Docusate Sodium (Colace) 100 mg BID PO Last administered on 10/27/18 08:13; A dmin Dose 100 MG; Start 10/22/18 at 09:00 Escitalopram Oxalate (Lexapro) 10 mg DAILY PO Last administered on 10/27/18 08:14; Admin Dose 10 MG; Start 10/22/18 at 09:00 Albuterol/ Ipratropium (Duoneb) 3 ml Q8H RESP THERAPY HHN Last administered on 10/27/18 03:01; Admin Dose 3 ML; Start 10/22/18 at 00:00 Loratadine (Claritin) 10 mg DAILY PO Last administered on 10/27/18 08:13; Admin Dose 10 MG; Start 10/22/18 at 09:00 Magnesium Hydroxide (Milk Of Mag) 30 ml DAILY PO Last administered on 10/24/18 08:42; Admin Dose 30 ML; Start 10/22/18 at 09:00 Oxycodone HCl (Oxycontin) 20 mg Q12 PO Last administered on 10/27/18 08:14; Admin Dose 20 MG; Start 10/22/18 at 09:00 Pantoprazole (Protonix Tab) 40 mg AC BREAKFAST PO Last administered on 10/27/18 05:49; Admin Dose 40 MG; Start 10/22/18 at 07:25 Polyethylene Glycol (Miralax) 17 gm DAILY PO ; Start 10/22/18 at 09:00 Simethicone (Mylicon) 80 mg Q8H PO Last administered on 10/27/18 08:13; Admin Dose 80 MG; Start 10/21/18 at 23:30 Spironolactone (Aldactone) 50 mg DAILY PO Last administered on 10/27/18 08:14; Admin Dose 50 MG; Start 10/22/18 at 09:00 Zolpidem Tartrate (Ambien) 10 mg HS PRN PO INSOMNIA Last administered on 10/22/18 21:20; Admin Dose 10 MG; Start 10/21/18 at 23:30 Morphine Sulfate (morphine) 2 mg Q4H PRN IV SEVERE PAIN LEVEL 7-10 Last administered on 10/23/18 14:15; Admin Dose 2 MG; Start 10/22/18 at 01:30 Potassium Chloride (Klor-Con 20) 20 meq BID PO Last administered on 5/12/19at 08:13; Admin Dose 20 MEQ; Start 10/22/18 at 13:00 Furosemide (Lasix) 40 mg BID DIURETICS PO Last administered on 10/27/18at 05:49; Admin Dose 40 MG; Start 10/26/18 at 06:00 Assessment/Plan Hospital Course (Demo Recall) 1. Congestive heart failure exacerbation would be diastolic, acute on chronic by most recent echo.-now s/p echo this admit with EF 60/small effusion - better now, responding to diuresis. BETTER overall- very robust urine output - improved CHF. Con't to improve gradually. 2. Abnormal electrocardiogram with low voltage, rule out pericardial effusion - stable, no signs of tamponade. Treated. 3. Hypertension-currently borderline hypotension - treated with meds. BP stable overall. TREATED. 4. Metastatic breast carcinoma- responded to chemo per Dr. Fernández - still poor prognosis. 5. History of pathologic fractures of the leg, status post open reduction and internal fixation - pain controlled. 6. Anemia- H/H stable now. 7. Increased BNP consistent with patient's congestive heart failure. 8. Pericardial effusion-small by echo EMILY NELSON MD October 27, 2018 15:36
[2018-10-27 20:55] VITALS: BP 107/53; PULSE 90; RESP 18
[2018-10-27] MEDS: CEPASTAT LOZENGE MT PRN (23:14)
--- NOTE | 2018-10-27 23:43 | CONS ---
Assessment/Plan Assessment/Plan Hospital Course (Demo Recall) METASTATIC BREAST CANCER WITH PRIMARY ADENOCARCINOMA IN the left breast. MULTIPLE BONY METS, PULMONARY METS, LIVER METS CHEMO ON HOLD PT HAS A VERY GOOD RESPONSE TO CHEMO AND AI CONT AI FOR NOW CT ABD FOR RESTAGING 08.27.18- noted , stable Leukopenia- post chemo, IMPROVING post NEUPOGEN monitor closely post Neutropenia with occasional fever and chills. - resolved Anemia chronic disease SOB PLEURAL EFFUSIONS, NEG CYTOLOGY POST thoracentesis Fluid overload diuretic cardiology F-UP Severe pain in the interscapular and lumbar sacral area most probably metastatic lesion possible femoral fracture. pathologic fracture of T9 with 60% of loss of height. Bony pain with multiple bony mets post XRT will d/w dr Ocampo Obesity. Weight loss 60 pounds during the last 2 years PMS. Myopia. Anxiety disorder. Claustrophobia. Posttraumatic stress disorder. Pain in the left forearm with a history of fracture of ulna and radius. Tachycardia Hypoxemia at night marginal improved after 2 L of nasal cannula oxygen. Deconditioning Pain syndrome. Today the most painful zone is in the right hip area. X-ray did not show any fractures. Hyponatremia- resolved Hypoalbuminemia Right sided cp after catheter insertion and correction less discomfort. Decreased edema both lower extremities with hypotension-improving Swelling of the left forearm-persist. Consultation Date/Type/Reason Admit Date/Time October 21, 2018 at 17:39 Initial Consult Date 10/21/18 Type of Consult [facility] Requesting Provider: RUSS JEROME MD Date/Time of Note DATE: 10/27/18 TIME: 23:43 24 HR Interval Summary Free Text/Dictation ALL NOTED Exam/Review of Systems Exam Vitals Vital Signs Date Temp Pulse Resp B/P (MAP) Pulse Ox O2 O2 Flow FiO2 Time Delivery Rate 10/27/18 99.1 90 18 107/53 92 20:55 (71) 10/27/18 2.0 20:52 10/27/18 Room Air 08:33 10/23/18 30 16:30 Intake and Output 10/26/18 10/26/18 10/27/18 1515:00 23:00 07:00 IntakeIntake Total 200 ml 250 ml OutputOutput Total 1550 ml 400 ml BalanceBalance -1350 ml -150 ml Exam HEENT: Head is normocephalic. NECK: Supple. HEART: Regular rate. LUNGS: Show diminished breath sounds at the base. ABDOMEN: Soft, nontender to palpation. No rebound or guarding. EXTREMITIES: Negative for clubbing, cyanosis, positive edema. DERMATOLOGIC: No rashes. MUSCULOSKELETAL: No joint effusion. NEUROLOGIC: No change in exam. Results Result Diagram: 10/26/18 0455 10/26/18 0505 Medications Medication Current Medications Acetaminophen (Tylenol Tab) 650 mg Q4H PRN PO PAIN LEVEL 1-10/10 Last administered on 10/26/18 20:23; Admin Dose 650 MG; Start 10/21/18 at 23:30 Anastrozole (Arimidex) 1 mg DAILY PO Last administered on 10/27/18 08:16; Admin Dose 1 MG; Start 10/22/18 at 09:00 Benazepril HCl (Lotensin) 5 mg DAILY PO Last administered on 10/26/18 10:25; Admin Dose 5 MG; Start 10/22/18 at 09:00 Bisacodyl (Dulcolax Supp) 10 mg Q8 GA Last administered on 10/27/18 12:20; Admin Dose 10 MG; Start 10/22/18 at 06:00 Carvedilol (Coreg) 3.125 mg BID PO Last administered on 10/27/18 21:00; Admin Dose 3.125 MG; Start 10/22/18 at 09:00 Docusate Sodium (Colace) 100 mg BID PO Last administered on 10/27/18 20:59; Admin Dose 100 MG; Start 10/22/18 at 09:00 Escitalopram Oxalate (Lexapro) 10 mg DAILY PO Last administered on 10/27/18 08:14; Admin Dose 10 MG; Start 10/22/18 at 09:00 Albuterol/ Ipratropium (Duoneb) 3 ml Q8H RESP THERAPY HHN Last administered on 10/27/18 03:01; Admin Dose 3 ML; Start 10/22/18 at 00:00 Loratadine (Claritin) 10 mg DAILY PO Last administered on 10/27/18 08:13; Admin Dose 10 MG; Start 10/22/18 at 09:00 Magnesium Hydroxide (Milk Of Mag) 30 ml DAILY PO Last administered on 10/24/18 08:42; Admin Dose 30 ML; Start 10/22/18 at 09:00 Oxycodone HCl (Oxycontin) 20 mg Q12 PO Last administered on 10/27/18 20:57; Admin Dose 20 MG; Start 10/22/18 at 09:00 Pantoprazole (Protonix Tab) 40 mg AC BREAKFAST PO Last administered on 10/27/18 05:49; Admin Dose 40 MG; Start 10/22/18 at 07:25 Polyethylene Glycol (Miralax) 17 gm DAILY PO ; Start 10/22/18 at 09:00 Simethicone (Mylicon) 80 mg Q8H PO Last administered on 10/27/18 23:14; Admin Dose 80 MG; Start 10/21/18 at 23:30 Spironolactone (Aldactone) 50 mg DAILY PO Last administered on 10/27/18 08:14; Admin Dose 50 MG; Start 10/22/18 at 09:00 Zolpidem Tartrate (Ambien) 10 mg HS PRN PO INSOMNIA Last administered on 10/22/18 21:20; Admin Dose 10 MG; Start 10/21/18 at 23:30 Morphine Sulfate (morphine) 2 mg Q4H PRN IV SEVERE PAIN LEVEL 7-10 Last administered on 10/23/18 14:15; Admin Dose 2 MG; Start 10/22/18 at 01:30 Potassium Chloride (Klor-Con 20) 20 meq BID PO Last administered on 10/27/18 20:59; Admin Dose 20 MEQ; Start 10/22/18 at 13:00 Furosemide (Lasix) 40 mg BID DIURETICS PO Last administered on 10/27/18 20:59; Admin Dose 40 MG; Start 10/26/18 at 06:00 Phenol (Cepastat Lozenge) 1 lozenge Q1H PRN MT sore throat Last administered on 10/27/18 23:14; Admin Dose 1 LOZENGE; Start 10/27/18 at 21:30 Guaifenesin/ Codeine Phosphate (Robitussin Ac Liquid Cup) 10 ml Q8 PRN PO cough; Start 10/27/18 at 21:30 DES DUNAWAY MD October 27, 2018 23:43
[2018-10-28 02:41] VITALS: BP 96/59; PULSE 87; RESP 17
[2018-10-28] MEDS: GUAIFENESIN/CODEINE 5ML CUP PO PRN ×2 (03:13→22:42)
[2018-10-28] MEDS: PANTOPRAZOLE (EC) 40 MG TAB PO SCH (05:39)
[2018-10-28] MEDS: FUROSEMIDE 40 MG TAB PO SCH ×2 (05:40→20:02)
[2018-10-28] MEDS: BISACODYL 10 MG SUPP PR SCH ×3 (05:53→21:22)
[2018-10-28 07:56] VITALS: BP 116/56; PULSE 89; RESP 18
[2018-10-28] MEDS: ALBUTEROL/IPRATROPIUM (NEB) 3 ML AMP HHN SCH ×3 (08:00→23:53)
[2018-10-28] MEDS ORDERED: ACETAZOLAMIDE 500 MG INJ IV ONE (08:30)
--- NOTE | 2018-10-28 08:32 | PN ---
DATE: 10/28/2018 SUBJECTIVE: The patient is stable. She describes having minimal urinary output, but being given Las ix. No other events noted. OBJECTIVE: VITAL SIGNS: Blood pressure is 96/59, respirations 17, pulse 87, temperature 98.7. HEENT: Head is normocephalic. NECK: Supple. HEART: Regular rate. LUNGS: Show diminished breath sounds at the base. ABDOMEN: Soft, nontender to palpation without rebound or guarding. EXTREMITIES: Positive for edema in left upper extremity and bilateral lower extremities. DERMATOLOGIC: No rashes. MUSCULOSKELETAL: No joint effusion. NEUROLOGIC: No change in exam. MEDICATIONS: The patient's medications have been reviewed. LABORATORY DATA: Reviewed. ASSESSMENT AND PLAN: 1. Acute hypoxemic respiratory failure secondary to bilateral pleural effusion. The patient is stat us post thoracentesis. Respiratory status is improving. Continue to monitor. 2. Volume overload. Etiology is multifactorial secondary to diastolic heart failure, unclear if the re is a component of portal hypertension due to metastatic disease, questionable lymphogenic spread a nd obstruction. We will continue IV Lasix. We will add Diamox to help augment diuresis. 3. Alkalosis, likely secondary to diuretic therapy. The patient will be given a course of Diamox. 4. Anemia. Monitor hemoglobin and hematocrit levels. 5. Breast cancer with metastasis to the liver and spine. Continue to monitor. Follow up with oncol gaviota. 6. Hip fracture, status post arthroplasty. 7. Pleural effusion, status post thoracentesis. 8. Chronic pain syndrome. 9. History of leukemia, improved. Dictated By: ANDRÉS TATUM DO NR/NTS Conf#: [id number] DID#: [id number] CC: RUSS JEROME MD;*EndCC*
--- NOTE | 2018-10-28 08:55 | CONS ---
Consult Date/Type/Reason Admit Date/Time October 21, 2018 at 17:39 Initial Consult Date 10/21/18 Requesting Provider: RUSS JEROME MD Date/Time of Note DATE: 10/28/18 TIME: 08:55 Subjective PT asleep - VS reviewed - stable. Objective Vitals Vital Signs Date Temp Pulse Resp B/P (MAP) Pulse Ox O2 O2 Flow FiO2 Time Delivery Rate 10/28/18 98.6 89 18 116/56 90 07:56 (76) 10/28/18 2.0 02:24 10/27/18 Nasal 23:50 Cannula Intake and Output 10/27/18 10/27/18 10/28/18 1515:00 23:00 07:00 IntakeIntake Total 300 ml 200 ml BalanceBalance 300 ml 200 ml Results/Medications Result Diagram: 10/28/18 0458 10/28/18 0458 Results 24 hrs Laboratory Tests Test 10/28/18 04:58 White Blood Count 2.3 #L Red Blood Count 3.25 L Hemoglobin 10.3 L Hematocrit 32.7 L Mean Corpuscular Volume 100.6 Mean Corpuscular Hemoglobin 31.7 Mean Corpuscular Hemoglobin Concent 31.5 L Red Cell Distribution Width 17.2 H Platelet Count 188 Mean Platelet Volume 9.4 Immature Granulocytes % 0.400 Neutrophils % 25.5 L Lymphocytes % 49.1 Monocytes % 22.4 H Eosinophils % 1.7 Basophils % 0.9 Nucleated Red Blood Cells % 0.0 Immature Granulocytes # 0.010 Neutrophils # 0.6 L Lymphocytes # 1.1 Monocytes # 0.5 Eosinophils # 0.0 Basophils # 0.0 Nucleated Red Blood Cells # 0.0 Sodium Level 138 Potassium Level 3.9 Chloride Level 96 L Carbon Dioxide Level 33 H Anion Gap 9 Blood Urea Nitrogen 28 H Creatinine 0.87 Est Glomerular Filtrat Rate mL/min > 60 Glucose Level 96 Calcium Level 8.9 Magnesium Level 2.0 Iron Level 73 Total Iron Binding Capacity 200 L Percent Iron Saturation 37 Home Meds Reported Medications Tuberculin,Purif.prot.deriv. (Tubersol) 5 Tub Unit/0.1 Ml Vial, 0.1 ML ID, VIAL INJECT QHS EVERY 10 DAYS FOR PPD SCREENING FOR 11 DAYS READ IN 48 HOURS,IF NEGATIVE 2STEP IN 7 DAYS FROM FIRST DOSE. 10/21/18 Acetaminophen* (Tylenol*) 325 Mg Tablet, 650 MG PO Q4H PRN for PAIN LEVEL 1- 03/27, TAB 10/21/18 Spironolactone* (Aldactone*) 50 Mg Tablet, 50 MG PO DAILY, #30 TAB HOLD FOR SBP<110 10/21/18 Simethicone* (Mylicon*) 80 Mg Tab, 80 MG PO Q8H, TAB 10/21/18 Olopatadine* (Patanol* Ophth) 0.1% - 5 Ml Drops, 1 DROP BOTH EYES BID, EA 10/21/18 Hydrocodone/Acetaminophen ([place] 10-325 Tablet) 1 Each Tablet, 1 EACH PO Q4H, TAB 10/21/18 Loratadine* (Loratadine*) 10 Mg Tablet, 10 MG PO DAILY for FOR 3 MONTHS, #30 TAB 10/21/18 Lidocaine (Lidocaine) 1 Each Adh..patch, 1 EACH TP DAILY 10/21/18 Ipratropium-Albuterol (Ipratropium-Albuterol) 0.5-3 Mg/3 Ml Ampul.neb, 3 ML INHALATION Q8H, #30 VIAL 10/21/18 Furosemide* (Furosemide*) 40 Mg Tablet, 40 MG PO BID, TAB HOLD FOR SBP<110 10/21/18 Na Phos,M-B/Na Phos,Di-Ba (Fleet Enema Extra) Unknown Strength Enema, 1 APPLIC RC NEEDED for CONSTIPATION, ENEMA 10/21/18 Bisacodyl (Dulcolax) 10 Mg Supp.rect, 10 MG RC NEEDED, SUPP.RECT 10/21/18 Potassium Chloride* (Potassium Chloride*) 20 Meq Tablet.er, 20 MEQ PO DAILY, TAB.SA 09/09/18 Pantoprazole* (Pantoprazole*) 40 Mg Tablet.dr, 40 MG PO AC BREAKFAST, TAB 08/22/18 Oxycodone Hcl* (Oxycontin*) 20 Mg Tab.er.12h, 20 MG PO Q12, TAB 08/22/18 Amlodipine Besylate* (Norvasc*) 5 Mg Tablet, 5 MG PO DAILY, TAB HOLD FOR SBP <110. 08/22/18 Polyethylene Glycol* (Miralax*) 17 Gm Powd.pack, 17 GM PO DAILY, #60 PACKET 08/22/18 Magnesium Hydroxide* (Milk Of Magnesia*) 400 Mg/5 Ml Oral.susp, 30 ML PO DAILY, ML 08/22/18 Escitalopram Oxalate* (Lexapro*) 10 Mg Tablet, 10 MG PO DAILY, #30 TAB 08/22/18 Docusate Sodium* (Colace*) 100 Mg Capsule, 100 MG PO BID, #60 CAP 08/22/18 Carvedilol* (Carvedilol*) 3.125 Mg Tablet, 3.125 MG PO BID, #60 TAB HOLD FOR SBP <110 OR UT <60. GIVE WITH FOOD. 08/22/18 Benazepril Hcl* (Benazepril Hcl*) 5 Mg Tablet, 5 MG PO DAILY, #60 TAB HOLD FOR SBP <110. 08/22/18 Anastrozole* (Arimidex*) 1 Mg Tablet, 1 MG PO DAILY, #30 TAB 08/22/18 Discontinued Reported Medications Epoetin Cr (Procrit) 4,000 Unit/1 Ml Vial, 4000 UNIT IJ Q FRI, VIAL 7:00AM-7:00PM,HOLD IF HGB>10 09/09/18 Ondansetron Hcl* (Zofran*) 4 Mg Tab, 4 MG PO Q6H PRN for NAUSEA AND OR VOMITING, TAB 08/22/18 Furosemide* (Furosemide*) 20 Mg Tablet, 20 MG PO DAILY, #60 TAB HOLD FOR SBP <110. 08/22/18 Lactose-Free Food (Boost High Protein) 237 Ml Liquid, 120 ML PO BID 08/22/18 Acetaminophen* (Acetaminophen*) 500 MG Extra Strength Tablet, 500 MG PO Q6H PRN for PAIN AND OR ELEVATED TEMP, TAB 08/22/18 Medications Current Medications Acetaminophen (Tylenol Tab) 650 mg Q4H PRN PO PAIN LEVEL 1-03/27 Last admi nistered on 10/26/18at 20:23; Admin Dose 650 MG; Start 10/21/18 at 23:30 Anastrozole (Arimidex) 1 mg DAILY PO Last administered on 10/27/18at 08:16; Admin Dose 1 MG; Start 10/22/18 at 09:00 Benazepril HCl (Lotensin) 5 mg DAILY PO Last administered on 10/26/18at 10:25; Admin Dose 5 MG; Start 10/22/18 at 09:00 Bisacodyl (Dulcolax Supp) 10 mg Q8 UT Last administered on 10/27/18 12:20; Admin Dose 10 MG; Start 10/22/18 at 06:00 Carvedilol (Coreg) 3.125 mg BID PO Last administered on 10/27/18 21:00; Admin Dose 3.125 MG; Start 10/22/18 at 09:00 Docusate Sodium (Colace) 100 mg BID PO Last administered on 10/27/18 20:59; Admin Dose 100 MG; Start 10/22/18 at 09:00 Escitalopram Oxalate (Lexapro) 10 mg DAILY PO Last administered on 10/27/18 08:14; Admin Dose 10 MG; Start 10/22/18 at 09:00 Albuterol/ Ipratropium (Duoneb) 3 ml Q8H RESP THERAPY HHN Last administered on 10/27/18 23:49; Admin Dose 3 ML; Start 10/22/18 at 00:00 Loratadine (Claritin) 10 mg DAILY PO Last administered on 10/27/18 08:13; Admin Dose 10 MG; Start 10/22/18 at 09:00 Magnesium Hydroxide (Milk Of Mag) 30 ml DAILY PO Last administered on 10/24/18 08:42; Admin Dose 30 ML; Start 10/22/18 at 09:00 Oxycodone HCl (Oxycontin) 20 mg Q12 PO Last administered on 10/27/18 20:57; Admin Dose 20 MG; Start 10/22/18 at 09:00 Pantoprazole (Protonix Tab) 40 mg AC BREAKFAST PO Last administered on 10/28/18 05:39; Admin Dose 40 MG; Start 10/22/18 at 07:25 Polyethylene Glycol (Miralax) 17 gm DAILY PO ; Start 10/22/18 at 09:00 Simethicone (Mylicon) 80 mg Q8H PO Last administered on 10/27/18 23:14; Admin Dose 80 MG; Start 10/21/18 at 23:30 Spironolactone (Aldactone) 50 mg DAILY PO Last administered on 10/27/18 08:14; Admin Dose 50 MG; Start 10/22/18 at 09:00 Zolpidem Tartrate (Ambien) 10 mg HS PRN PO INSOMNIA Last administered on 10/22/18 21:20; Admin Dose 10 MG; Start 10/21/18 at 23:30 Morphine Sulfate (morphine) 2 mg Q4H PRN IV SEVERE PAIN LEVEL 7-10 Last administered on 10/23/18 14:15; Admin Dose 2 MG; Start 10/22/18 at 01:30 Potassium Chloride (Klor-Con 20) 20 meq BID PO Last administered on 10/27/18 20:59; Admin Dose 20 MEQ; Start 10/22/18 at 13:00 Furosemide (Lasix) 40 mg BID DIURETICS PO Last administered on 10/28/18 05:40; Admin Dose 40 MG; Start 10/26/18 at 06:00 Phenol (Cepastat Lozenge) 1 lozenge Q1H PRN MT sore throat Last administered on 10/27/18 23:14; Admin Dose 1 LOZENGE; Start 10/27/18 at 21:30 Guaifenesin/ Codeine Phosphate (Robitussin Ac Liquid Cup) 10 ml Q8 PRN PO cough Last administered on 10/28/18 03:13; Admin Dose 10 ML; Start 10/27/18 at 21:30 EMILY NELSON MD October 28, 2018 08:55
--- NOTE | 2018-10-28 09:02 | PN ---
Date/Time of Note Date/Time of Note DATE: 10/28/18 TIME: 08:57 Assessment/Plan VTE Prophylaxis Risk score (from Nsg)>0 risk: 4 SCD applied (from Nsg): No SCD contraindicated: other (on.) Pharmacological prophylaxis: LMWH Lines/Catheters IV Catheter Type (from Nrs): [place] Central line still needed: No Urinary Cath still in place: No Reason Cath still needed: urinary retention Assessment/Plan Assessment/Plan 1. PRIMARY ADENOCARCINOMA of the left breast. MULTIPLE BONY METS, PULMONARY METS;LIVER METS CHEMO ON HOLD; PT HAS A VERY GOOD RESPONSE TO CHEMO AND AI 2. Severe pain in the interscapular and lumbar sacral area most probably metastatic lesion possible femoral fracture. pathologic fracture of T9 with 60% of loss of height. Neurosurgical f/u. 3. Obesity. 4. Weight loss 60 pounds during the last 2 years by diet 5. PMS. 6. Myopia. 7. Anemia chronic disease with a drop of her hematocrit to 27; Latest results 28. Will recheck tomorrow;Leukopenia.Thrombocytopenia; 8. Anxiety disorder. Claustrophobia. Increase Ativan to 1 mg every 8 as needed at Lexapro 10 mg daily. 9. Posttraumatic stress disorder. 10. Pain in the left forearm with a history of fracture of ulna and radius. 11. Tachycardia 12. Hypoxemia at night marginal improved after 2 L of nasal cannula oxygen. 13. Deconditioning 14. 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 MRI: 09/28/18:diffuse osseous metastatic disease with multiple pathologic compression fractures at least involving the T4, T5, T7, T9 and T11 levels. There is likely mild cortical breakthrough at several levels resulting in mild central canal narrowing. No gross evidence of cord compression is seen.. 15. Pain syndrome. Today the most painful zone is in the right hip area. 16. Hyponatremia-corrected; hypokalemia now hyperkalemic 5.2 hold potassium p.o. today and hold Aldactone today.Recheck and sodium chloride daily with the dose to 4 mg today 17. Leucopenia-improved. 18. Neutropenia with occasional fever and chills. Last chemotherapy 5 days ago. 19. Hypoalbuminemia. 20.Right sided cp after catheter insertion and correction less discomfort. 21. Decreased edema both lower extremities with [id number] with Pleural and Pericardial effusion. 22. pain syndrome 23.bilateral pleural effusions ; s/p left thoracentesis, During the procedure the probe of the u/s was placed to the right side of the chest which showed only minimal amount of liquid on the right pleural cavity. Reaccumulation of the pleural fluid. Plan to tap from the right side tomorrow a.m. 24. Systolic over diastolic congestive heart failure with a right more than left lower extremity swelling with no DVT in latest venous Doppler. 25. Swelling of the left forearm-persist. Cellulitis of the left forearm with increased edema anteriorly.-Today it is less edematous 26. Pathologic fracture of the right hip;s/p hemiarthroplasty of right hip . 27. Dizziness 28. Chills. 29. Memory impairment. Result Diagram: 10/28/188 10/28/188 Results 24hrs Laboratory Tests Test 10/28/18 04:58 White Blood Count 2.3 #L Red Blood Count 3.25 L Hemoglobin 10.3 L Hematocrit 32.7 L Mean Corpuscular Volume 100.6 Mean Corpuscular Hemoglobin 31.7 Mean Corpuscular Hemoglobin Concent 31.5 L Red Cell Distribution Width 17.2 H Platelet Count 188 Mean Platelet Volume 9.4 Immature Granulocytes % 0.400 Neutrophils % 25.5 L Lymphocytes % 49.1 Monocytes % 22.4 H Eosinophils % 1.7 Basophils % 0.9 Nucleated Red Blood Cells % 0.0 Immature Granulocytes # 0.010 Neutrophils # 0.6 L Lymphocytes # 1.1 Monocytes # 0.5 Eosinophils # 0.0 Basophils # 0.0 Nucleated Red Blood Cells # 0.0 Sodium Level 138 Potassium Level 3.9 Chloride Level 96 L Carbon Dioxide Level 33 H Anion Gap 9 Blood Urea Nitrogen 28 H Creatinine 0.87 Est Glomerular Filtrat Rate mL/min > 60 Glucose Level 96 Calcium Level 8.9 Magnesium Level 2.0 Iron Level 73 Total Iron Binding Capacity 200 L Percent Iron Saturation 37 Subjective 24 Hr Interval Summary Free Text/Dictation Left-sided chest pain. Today's less intense. Weakness. I do not know what is my future. What I am going to do. Discussed the plan of chemotherapy along with planned fluid removal along with PT OT and preparing for long-term treatment. Further decline of the edema of lower extremities. Constitutional: improved; No no complaints, No chills, No diaphoresis, No disoriented, No febrile, No poor po, No requiring IVF, No requiring O2, No other Eyes: No no complaints, No pain, No discharge, No redness, No visual change, No other ENT: No no complaints, No bleeding, No pain, No congestion, No discharge, No dysphagia, No sore throat, No other Respiratory: cough, pleuritic pain, shortness of breath; No no complaints, No pain, No sputum, No wheezing, No other Cardiovascular: edema; No no complaints, No chest pain, No lightheadedness, No orthopenea, No palpitations, No paroxysmal nocturnal dyspnea, No other Gastrointestinal: constipation, decreased appetite, flatus, nausea, passing stool; No no complaints, No pain, No blood, No diarrhea, No vomiting, No other Genitourinary: dysuria; No no complaints, No bleeding, No discharge, No flank pain, No hematuria, No other Musculoskeletal: back pain, bone/joint pain, neck pain; No no complaints, No restricted range of motion, No swelling, No other Skin: pruritis; No no complaints, No bruising, No erythema, No laceration, No rash, No skin lesions, No other Neurologic: dizziness, headache; No no complaints, No confusion, No focal-weakness, No syncope, No seizure, No other Lymphatic: No no complaints, No adenopathy, No tender nodes, No lymphadema, No other Psychological: anxiety, confusion; No no complaints, No nl mood/affect, No depression, No suicidal, No other Immunologic: No no complaints, No immunodeficiency, No pruritis, No rhinitis, No urticaria, No other Exam/Review of Systems Exam Vitals Vital Signs Date Temp Pulse Resp B/P (MAP) Pulse Ox O2 O2 Flow FiO2 Time Delivery Rate 10/28/18 98.6 89 18 116/56 90 07:56 (76) 10/28/18 2.0 02:24 10/27/18 Nasal 23:50 Cannula Intake and Output 10/27/18 10/27/18 10/28/18 1515:00 23:00 07:00 IntakeIntake Total 300 ml 200 ml BalanceBalance 300 ml 200 ml Constitutional: alert, oriented, well developed, distress, frail Psych: anxiety, confusion, depression; No no complaints, No nl mood/affect, No suicidal, No other Head: normocephalic, atraumatic; No lacerations, No hematomas, No other Eyes: EOMI, nl lids, PERRL; No nl conjunctiva, No nl sclera, No icteric, No fundi, disc, No other ENMT: No nl external ears & nose, No nl lips & teeth, No nl nasal mucosa & septum, No mucosa pink and moist, No intubated, No tympanic membranes, No other Neck: jvd, bruits, thyromegaly, nuchal rigidity; No supple, No non-tender, No masses, No other Respiratory: congested cough, crackles/rales, diminished breath sounds; No clear to auscultation, No normal air movement, No intercostal retraction, No labored breathing, No respirations, No tactile fremitus, No wheezing, No other Cardiovascular: regular rate and rhythm, bruits, jugular venous distention (JVD), systolic murmur; No nl pulses, No diastolic murmur, No edema, No gallop, No irregular rhythm, No murmurs/extra sounds, No rub, No S3, No S4, No other Gastrointestinal: soft, nl liver, spleen, bowel sounds; No non-tender, No ascites, No distended, No firm, No hepatomegaly, No mass, No rebound or guarding, No splenomegaly, No surgical scars, No tender, No other Musculoskeletal: nl gait and stance (Unstable gait due to worsening of pain in the right hip area. For the decrease of the muscular strain difficulty to get up from sitting position. On the bed due to pain and weakness.), joint tenderness; No nl extremities to inspection, No muscle tone, No muscle weakness, No range of motion, No spine non-tender, No swelling, No other Extremities: normal pulses, edema; No calf tenderness, No cyanosis, No clubbing, No pitting pedal edema, No palpable cord, No tenderness, No other 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: [employer] 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, numbness; No nl mental status, No nl speech, No nl strength, No confused, No DTR's symmetric, No focal weakness, No lethargic, No reflexes, No unresponsive, No other Skin: No nl turgor, No rash or lesions, No diaphoresis, No ecchymosis, No lacer ation, No puncture, No other Lymph: No nl lymph nodes, No enlarged, No nontender, No other Results Results 24hrs Laboratory Tests Test 10/28/18 04:58 White Blood Count 2.3 #L Red Blood Count 3.25 L Hemoglobin 10.3 L Hematocrit 32.7 L Mean Corpuscular Volume 100.6 Mean Corpuscular Hemoglobin 31.7 Mean Corpuscular Hemoglobin Concent 31.5 L Red Cell Distribution Width 17.2 H Platelet Count 188 Mean Platelet Volume 9.4 Immature Granulocytes % 0.400 Neutrophils % 25.5 L Lymphocytes % 49.1 Monocytes % 22.4 H Eosinophils % 1.7 Basophils % 0.9 Nucleated Red Blood Cells % 0.0 Immature Granulocytes # 0.010 Neutrophils # 0.6 L Lymphocytes # 1.1 Monocytes # 0.5 Eosinophils # 0.0 Basophils # 0.0 Nucleated Red Blood Cells # 0.0 Sodium Level 138 Potassium Level 3.9 Chloride Level 96 L Carbon Dioxide Level 33 H Anion Gap 9 Blood Urea Nitrogen 28 H Creatinine 0.87 Est Glomerular Filtrat Rate mL/min > 60 Glucose Level 96 Calcium Level 8.9 Magnesium Level 2.0 Iron Level 73 Total Iron Binding Capacity 200 L Percent Iron Saturation 37 Medications Medication Current Medications Acetaminophen (Tylenol Tab) 650 mg Q4H PRN PO PAIN LEVEL 1-03/27 Last administered on 10/26/18 20:23; Admin Dose 650 MG; Start 10/21/18 at 23:30 Anastrozole (Arimidex) 1 mg DAILY PO Last administered on 10/27/18 08:16; Admin Dose 1 MG; Start 10/22/18 at 09:00 Benazepril HCl (Lotensin) 5 mg DAILY PO Last administered on 10/26/18 10:25; Admin Dose 5 MG; Start 10/22/18 at 09:00 Bisacodyl (Dulcolax Supp) 10 mg Q8 ID Last administered on 10/27/18 12:20; Admin Dose 10 MG; Start 10/22/18 at 06:00 Carvedilol (Coreg) 3.125 mg BID PO Last administered on 10/27/18 21:00; Admin Dose 3.125 MG; Start 10/22/18 at 09:00 Docusate Sodium (Colace) 100 mg BID PO Last administered on 10/27/18 20:59; Admin Dose 100 MG; Start 10/22/18 at 09:00 Escitalopram Oxalate (Lexapro) 10 mg DAILY PO Last administered on 10/27/18 08:14; Admin Dose 10 MG; Start 10/22/18 at 09:00 Albuterol/ Ipratropium (Duoneb) 3 ml Q8H RESP THERAPY HHN Last administered on 10/27/18 23:49; Admin Dose 3 ML; Start 10/22/18 at 00:00 Loratadine (Claritin) 10 mg DAILY PO Last administered on 10/27/18 08:13; Admin Dose 10 MG; Start 10/22/18 at 09:00 Magnesium Hydroxide (Milk Of Mag) 30 ml DAILY PO Last administered on 10/24/18 08:42; Admin Dose 30 ML; Start 10/22/18 at 09:00 Oxycodone HCl (Oxycontin) 20 mg Q12 PO Last administered on 10/27/18 20:57; Admin Dose 20 MG; Start 10/22/18 at 09:00 Pantoprazole (Protonix Tab) 40 mg AC BREAKFAST PO Last administered on 10/28/18 05:39; Admin Dose 40 MG; Start 10/22/18 at 07:25 Polyethylene Glycol (Miralax) 17 gm DAILY PO ; Start 10/22/18 at 09:00 Simethicone (Mylicon) 80 mg Q8H PO Last administered on 10/27/18 23:14; Admin Dose 80 MG; Start 10/21/18 at 23:30 Spironolactone (Aldactone) 50 mg DAILY PO Last administered on 10/27/18 08:14; Admin Dose 50 MG; Start 10/22/18 at 09:00 Zolpidem Tartrate (Ambien) 10 mg HS PRN PO INSOMNIA Last administered on 10/22/18 21:20; Admin Dose 10 MG; Start 10/21/18 at 23:30 Morphine Sulfate (morphine) 2 mg Q4H PRN IV SEVERE PAIN LEVEL 7-10 Last administered on 10/23/18 14:15; Admin Dose 2 MG; Start 10/22/18 at 01:30 Potassium Chloride (Klor-Con 20) 20 meq BID PO Last administered on 10/27/18 20:59; Admin Dose 20 MEQ; Start 10/22/18 at 13:00 Furosemide (Lasix) 40 mg BID DIURETICS PO Last administered on 10/28/18 05:40; Admin Dose 40 MG; Start 10/26/18 at 06:00 Phenol (Cepastat Lozenge) 1 lozenge Q1H PRN MT sore throat Last administered on 10/27/18at 23:14; Admin Dose 1 LOZENGE; Start 10/27/18 at 21:30 Guaifenesin/ Codeine Phosphate (Robitussin Ac Liquid Cup) 10 ml Q8 PRN PO cough Last administered on 10/28/18at 03:13; Admin Dose 10 ML; Start 10/27/18 at 21:30 RUSS JEROME MD October 28, 2018 09:02
[2018-10-28] MEDS: LORATADINE 10 MG TAB PO SCH (10:07)
[2018-10-28] MEDS: ESCITALOPRAM 10 MG TAB PO SCH (10:07)
[2018-10-28] MEDS: POTASSIUM CHLORIDE (SR) 20 MEQ TAB PO SCH ×2 (10:07→21:19)
[2018-10-28] MEDS: oxyCODONE (CR) 20 MG TAB [oxyCONTIN] PO SCH ×2 (10:09→21:20)
[2018-10-28] MEDS: BENAZEPRIL 5 MG TAB PO SCH (10:09)
[2018-10-28] MEDS: DOCUSATE SODIUM 100 MG CAP PO SCH ×2 (10:09→21:19)
[2018-10-28] MEDS: SPIRONOLACTONE 50 MG TAB PO SCH (10:09)
[2018-10-28] MEDS: POLYETHYLENE GLYCOL 17 GM PACKET PO SCH (10:11)
[2018-10-28] MEDS: ANASTROZOLE 1 MG TAB PO SCH (10:11)
[2018-10-28] MEDS: MAGNESIUM HYDROXIDE 30ML CUP PO SCH (10:11)
[2018-10-28] MEDS ORDERED: ACETAZOLAMIDE (SR) 500 MG CAP PO ONE (10:30)
[2018-10-28 14:12] VITALS: BP 89/55; PULSE 87; RESP 18
[2018-10-28 20:45] VITALS: BP 96/54; PULSE 83; RESP 19
[2018-10-28] MEDS: CEPASTAT LOZENGE MT PRN (21:19)
--- NOTE | 2018-10-28 22:51 | CONS ---
Assessment/Plan Assessment/Plan Hospital Course (Demo Recall) METASTATIC BREAST CANCER WITH PRIMARY ADENOCARCINOMA IN the left breast. MULTIPLE BONY METS, PULMONARY METS, LIVER METS CHEMO ON HOLD PT HAS A VERY GOOD RESPONSE TO CHEMO AND AI CONT AI FOR NOW CT ABD FOR RESTAGING 08.27.18- noted , stable Leukopenia- post chemo, IMPROVING post NEUPOGEN monitor closely post Neutropenia with occasional fever and chills. - resolved Anemia chronic disease SOB PLEURAL EFFUSIONS, NEG CYTOLOGY POST thoracentesis Fluid overload diuretic cardiology F-UP Severe pain in the interscapular and lumbar sacral area most probably metastatic lesion possible femoral fracture. pathologic fracture of T9 with 60% of loss of height. Bony pain with multiple bony mets post XRT will d/w dr Ocampo Obesity. Weight loss 60 pounds during the last 2 years PMS. Myopia. Anxiety disorder. Claustrophobia. Posttraumatic stress disorder. Pain in the left forearm with a history of fracture of ulna and radius. Tachycardia Hypoxemia at night marginal improved after 2 L of nasal cannula oxygen. Deconditioning Pain syndrome. Today the most painful zone is in the right hip area. X-ray did not show any fractures. Hyponatremia- resolved Hypoalbuminemia Right sided cp after catheter insertion and correction less discomfort. Decreased edema both lower extremities with hypotension-improving Swelling of the left forearm-persist. Consultation Date/Type/Reason Admit Date/Time October 21, 2018 at 17:39 Initial Consult Date 10/21/18 Type of Consult [facility] Requesting Provider: RUSS JEROME MD Date/Time of Note DATE: 10/28/18 TIME: 22:49 24 HR Interval Summary Free Text/Dictation + PAIN + SOB Exam/Review of Systems Exam Vitals Vital Signs Date Temp Pulse Resp B/P (MAP) Pulse Ox O2 O2 Flow FiO2 Time Delivery Rate 10/28/18 98.2 83 19 96/54 (68) 92 20:45 10/28/18 2.0 12:12 10/28/18 Nasal 08:00 Cannula Intake and Output 10/27/18 10/27/18 10/28/18 1515:00 23:00 07:00 IntakeIntake Total 300 ml 200 ml BalanceBalance 300 ml 200 ml Exam HEENT: Head is normocephalic. NECK: Supple. HEART: Regular rate. LUNGS: Show diminished breath sounds at the base. ABDOMEN: Soft, nontender to palpation. No rebound or guarding. EXTREMITIES: Negative for clubbing, cyanosis, positive edema. DERMATOLOGIC: No rashes. MUSCULOSKELETAL: No joint effusion. NEUROLOGIC: No change in exam. Results Result Diagram: 10/28/188 10/28/188 Results 24hrs Laboratory Tests Test 10/28/18 04:58 White Blood Count 2.3 #L Red Blood Count 3.25 L Hemoglobin 10.3 L Hematocrit 32.7 L Mean Corpuscular Volume 100.6 Mean Corpuscular Hemoglobin 31.7 Mean Corpuscular Hemoglobin Concent 31.5 L Red Cell Distribution Width 17.2 H Platelet Count 188 Mean Platelet Volume 9.4 Immature Granulocytes % 0.400 Neutrophils % 25.5 L Lymphocytes % 49.1 Monocytes % 22.4 H Eosinophils % 1.7 Basophils % 0.9 Nucleated Red Blood Cells % 0.0 Immature Granulocytes # 0.010 Neutrophils # 0.6 L Lymphocytes # 1.1 Monocytes # 0.5 Eosinophils # 0.0 Basophils # 0.0 Nucleated Red Blood Cells # 0.0 Sodium Level 138 Potassium Level 3.9 Chloride Level 96 L Carbon Dioxide Level 33 H Anion Gap 9 Blood Urea Nitrogen 28 H Creatinine 0.87 Est Glomerular Filtrat Rate mL/min > 60 Glucose Level 96 Calcium Level 8.9 Magnesium Level 2.0 Iron Level 73 Total Iron Binding Capacity 200 L Percent Iron Saturation 37 Medications Medication Current Medications Acetaminophen (Tylenol Tab) 650 mg Q4H PRN PO PAIN LEVEL 1-1010 Last administered on 10/26/18at 20:23; Admin Dose 650 MG; Start 10/21/18 at 23:30 Anastrozole (Arimidex) 1 mg DAILY PO Last administered on 10/28/18at 10:11; Admin Dose 1 MG; Start 10/22/18 at 09:00 Benazepril HCl (Lotensin) 5 mg DAILY PO Last administered on 10/28/18 10:09; Admin Dose 5 MG; Start 10/22/18 at 09:00 Bisacodyl (Dulcolax Supp) 10 mg Q8 [place] Last administered on 10/27/18at 12:20; Admin Dose 10 MG; Start 10/22/18 at 06:00 Carvedilol (Coreg) 3.125 mg BID PO Last administered on 10/28/18at 21:20; Admin Dose 3.125 MG; Start 10/22/18 at 09:00 Docusate Sodium (Colace) 100 mg BID PO Last administered on 10/28/18 21:19; Admin Dose 100 MG; Start 10/22/18 at 09:00 Escitalopram Oxalate (Lexapro) 10 mg DAILY PO Last administered on 10/28/18 10:07; Admin Dose 10 MG; Start 10/22/18 at 09:00 Albuterol/ Ipratropium (Duoneb) 3 ml Q8H RESP THERAPY HHN Last administered on 10/27/18 23:49; Admin Dose 3 ML; Start 10/22/18 at 00:00 Loratadine (Claritin) 10 mg DAILY PO Last administered on 10/28/18 10:07; Admin Dose 10 MG; Start 10/22/18 at 09:00 Magnesium Hydroxide (Milk Of Mag) 30 ml DAILY PO Last administered on 10/24/18 08:42; Admin Dose 30 ML; Start 10/22/18 at 09:00 Oxycodone HCl (Oxycontin) 20 mg Q12 PO Last administered on 10/28/18 21:20; Admin Dose 20 MG; Start 10/22/18 at 09:00 Pantoprazole (Protonix Tab) 40 mg AC BREAKFAST PO Last administered on 10/28/18 05:39; Admin Dose 40 MG; Start 10/22/18 at 07:25 Polyethylene Glycol (Miralax) 17 gm DAILY PO ; Start 10/22/18 at 09:00 Simethicone (Mylicon) 80 mg Q8H PO Last administered on 10/28/18 22:42; Admin Dose 80 MG; Start 10/21/18 at 23:30 Spironolactone (Aldactone) 50 mg DAILY PO Last administered on 10/28/18 10:09; Admin Dose 50 MG; Start 10/22/18 at 09:00 Zolpidem Tartrate (Ambien) 10 mg HS PRN PO INSOMNIA Last administered on 10/22/18 21:20; Admin Dose 10 MG; Start 10/21/18 at 23:30 Morphine Sulfate (morphine) 2 mg Q4H PRN IV SEVERE PAIN LEVEL 7-10 Last administered on 10/23/18 14:15; Admin Dose 2 MG; Start 10/22/18 at 01:30 Potassium Chloride (Klor-Con 20) 20 meq BID PO Last administered on 10/28/18 21:19; Admin Dose 20 MEQ; Start 10/22/18 at 13:00 Furosemide (Lasix) 40 mg BID DIURETICS PO Last administered on 10/28/18at 20:02; Admin Dose 40 MG; Start 10/26/18 at 06:00 Phenol (Cepastat Lozenge) 1 lozenge Q1H PRN MT sore throat Last administered on 10/28/18 21:19; Admin Dose 1 LOZENGE; Start 10/27/18 at 21:30 Guaifenesin/ Codeine Phosphate (Robitussin Ac Liquid Cup) 10 ml Q8 PRN PO cough Last administered on 10/28/18 22:42; Admin Dose 10 ML; Start 10/27/18 at 21:30 DES DUNAWAY MD October 28, 2018 22:51
[2018-10-29 02:44] VITALS: BP 115/58; PULSE 90; RESP 8
[2018-10-29] MEDS: CEPASTAT LOZENGE MT PRN (04:49)
[2018-10-29] MEDS: PANTOPRAZOLE (EC) 40 MG TAB PO SCH (04:50)
[2018-10-29] MEDS: FUROSEMIDE 40 MG TAB PO SCH ×2 (04:50→17:20)
[2018-10-29] MEDS: BISACODYL 10 MG SUPP PR SCH ×3 (05:38→22:00)
[2018-10-29 07:48] VITALS: BP 98/55; PULSE 82; RESP 18
[2018-10-29] MEDS: ALBUTEROL/IPRATROPIUM (NEB) 3 ML AMP HHN SCH ×3 (08:32→23:19)
--- NOTE | 2018-10-29 08:57 | PN ---
DATE: 10/29/2018 SUBJECTIVE: The patient is stable. The patient states that her urinary output has been minimal. No other acute events noted. No hemoptysis, hematemesis or hematochezia. OBJECTIVE: VITAL SIGNS: Blood pressure 98/55, respirations 18, pulse 82, temperature 98.2. HEENT: Head is normocephalic. NECK: Supple. HEART: Regular rate. LUNGS: Show diminished breath sounds at the base. ABDOMEN: Soft, nontender to palpation without rebound or guarding. EXTREMITIES: Negative for clubbing, cyanosis. Positive edema in bilateral lower extremities and lef t upper extremity. DERMATOLOGIC: No rashes. MUSCULOSKELETAL: No joint effusion. NEUROLOGIC: No change in exam. MEDICATIONS: The patient's medications have been reviewed. LABORATORY DATA: Reviewed. ASSESSMENT AND PLAN: 1. Acute hypoxemic respiratory failure, etiology is secondary to pleural effusion. The patient is s tatus post thoracentesis. Respiratory status is improved. Continue to monitor. 2. Volume overload. Etiology is multifactorial secondary to diastolic heart failure. Possible comp onent of portal hypertension due to metastatic disease, questionable nephrogenic obstruction. The pa tient has been on loop diuretics, Lasix, intermittent metolazone and Diamox. At this point, we will continue to monitor closely. Monitor electrolytes and renal function closely. 3. Nonoliguric acute kidney injury with previously normal baseline creatinine. Etiology is secondar y to diuretic therapy. We will continue to monitor. Consider holding deescalating diuretic therapy in order to enable fluid to mobilize. 4. Alkalosis, likely due to diuretic therapy. We will continue to monitor. 5. Mineral bone disorder, monitor calcium and phosphorus levels. 6. Breast cancer with metastasis to the liver and spine. Continue to monitor. 7. Hip fracture, status post arthroplasty. 8. Pleural effusion, status post thoracentesis. 9. Chronic pain syndrome. 10. Debility. Continue physical therapy. Dictated By: ANDRÉS YO/KEANU Conf#: [id number] DID#: [id number] CC: RUSS JEROME MD;*EndCC*
[2018-10-29] MEDS: BENAZEPRIL 5 MG TAB PO SCH (09:00)
[2018-10-29] MEDS: POLYETHYLENE GLYCOL 17 GM PACKET PO SCH ×2 (09:00→16:20)
[2018-10-29] MEDS: MAGNESIUM HYDROXIDE 30ML CUP PO SCH (09:00)
--- NOTE | 2018-10-29 09:11 | PN ---
Date/Time of Note Date/Time of Note DATE: 10/29/18 TIME: 09:07 Assessment/Plan VTE Prophylaxis Risk score (from Ns)>0 risk: 7 SCD applied (from Ns): Yes SCD contraindicated: other Pharmacological prophylaxis: LMWH Lines/Catheters IV Catheter Type (from [facility]): [place] [employer] line still needed: No Urinary Cath still in place: No Reason Cath still needed: urinary retention Assessment/Plan Assessment/Plan 1. PRIMARY ADENOCARCINOMA of the left breast. MULTIPLE BONY METS, PULMONARY METS;LIVER METS CHEMO ON HOLD; PT HAS A VERY GOOD RESPONSE TO CHEMO AND AI 2. Severe pain in the interscapular and lumbar sacral area most probably metastatic lesion possible femoral fracture. pathologic fracture of T9 with 60% of loss of height. Neurosurgical f/u. 3. Obesity. 4. Weight loss 60 pounds during the last 2 years by diet 5. PMS. 6. Myopia. 7. Anemia chronic disease with a drop of her hematocrit to 27; Latest results 28. Will recheck tomorrow;Leukopenia.Thrombocytopenia; 8. Anxiety disorder. Claustrophobia. Increase Ativan to 1 mg every 8 as needed at Lexapro 10 mg daily. 9. Posttraumatic stress disorder. 10. Pain in the left forearm with a history of fracture of ulna and radius. 11. Tachycardia 12. Hypoxemia at night marginal improved after 2 L of nasal cannula oxygen. 13. Deconditioning 14. 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 MRI: 09/28/18:diffuse osseous metastatic disease with multiple pathologic compression fractures at least involving the T4, T5, T7, T9 and T11 levels. There is likely mild cortical breakthrough at several levels resulting in mild central canal narrowing. No gross evidence of cord compression is seen.. 15. Pain syndrome. Today the most painful zone is in the right hip area. 16. Hyponatremia-corrected; hypokalemia now hyperkalemic 5.2 hold potassium p.o. today and hold Aldactone today.Recheck and sodium chloride daily with the dose to 4 mg today 17. Leucopenia-improved. 18. Neutropenia with occasional fever and chills. Last chemotherapy 5 days ago. 19. Hypoalbuminemia. 20.Right sided cp after catheter insertion and correction less discomfort. 21. Decreased edema both lower extremities with [id number] with Pleural and Pericardial effusion. 22. pain syndrome 23.bilateral pleural effusions ; s/p left thoracentesis, During the procedure the probe of the u/s was placed to the right side of the chest which showed only minimal amount of liquid on the right pleural cavity. Reaccumulation of the pleural fluid. Plan to tap from the right side tomorrow a.m. 24. Systolic over diastolic congestive heart failure with a right more than left lower extremity swelling with no DVT in latest venous Doppler. 25. Swelling of the left forearm-persist. Cellulitis of the left forearm with increased edema anteriorly.-Today it is less edematous 26. Pathologic fracture of the right hip;s/p hemiarthroplasty of right hip . 27. Dizziness 28. Chills. 29. Memory impairment. 30. Upper respiratory infection pharyngitis with dry cough. Result Diagram: 10/28/18 0458 10/29/18 0428 Results 24hrs Laboratory Tests Test 10/29/18 04:28 Sodium Level 137 Potassium Level 4.0 Chloride Level 95 L Carbon Dioxide Level 32 H Anion Gap 10 Blood Urea Nitrogen 30 H Creatinine 1.10 H Est Glomerular Filtrat Rate mL/min 51 L Glucose Level 96 Calcium Level 9.2 Phosphorus Level 5.2 H Magnesium Level 1.9 Subjective 24 Hr Interval Summary Free Text/Dictation Cough with mild amount of sputum production I was having cough after Being in the emergency room long time. It was not as long as today. No fever and chills. No nausea vomiting. Swelling is slightly painful. The decrease of edema of lower extremities. Constitutional: improved, poor po, requiring O2; No no complaints, No chills, No diaphoresis, No disoriented, No febrile, No requiring IVF, No other Eyes: No no complaints, No pain, No discharge, No redness, No visual change, No other ENT: pain, congestion, dysphagia, sore throat; No no complaints, No bleeding, No discharge, No other Respiratory: cough, pleuritic pain, shortness of breath; No no complaints, No pain, No sputum, No wheezing, No other Cardiovascular: No no complaints, No chest pain, No edema, No lightheadedness, No orthopenea, No palpitations, No paroxysmal nocturnal dyspnea, No other Gastrointestinal: constipation, decreased appetite, flatus, nausea, passing stool; No no complaints, No pain, No blood, No diarrhea, No vomiting, No other Genitourinary: dysuria; No no complaints, No bleeding, No discharge, No flank pain, No hematuria, No other Musculoskeletal: back pain, bone/joint pain, neck pain; No no complaints, No restricted range of motion, No swelling, No other Skin: No no complaints, No bruising, No erythema, No laceration, No pruritis, No rash, No skin lesions, No other Neurologic: dizziness; No no complaints, No confusion, No focal-weakness, No headache, No syncope, No seizure, No other Exam/Review of Systems Exam Vitals Vital Signs Date Temp Pulse Resp B/P (MAP) Pulse Ox O2 O2 Flow FiO2 Time Delivery Rate 10/29/18 98.2 82 18 98/55 (69) 99 07:48 10/29/18 3.0 00:58 10/28/18 Nasal 32 23:54 Cannula Intake and Output 10/28/18 10/28/18 10/29/18 1515:00 23:00 07:00 IntakeIntake Total 200 ml 120 ml OutputOutput Total 600 ml BalanceBalance 200 ml -480 ml Constitutional: alert, oriented, well developed, frail, obese; No non-verbal, No distress, No other Psych: anxiety; No no complaints, No nl mood/affect, No confusion, No depression, No suicidal, No other Head: normocephalic, atraumatic; No lacerations, No hematomas, No other Eyes: EOMI, nl lids, PERRL; No nl conjunctiva, No nl sclera, No icteric, No fundi, disc, No other ENMT: nl nasal mucosa & septum, other (Congested throat with erythema increased secretions and pharyngeal area with cobblestone appearance with no pus no enlarged tonsils. Positive for increased discharge from the nasal cavity bilaterally watery.); No nl external ears & nose, No nl lips & teeth, No mucosa pink and moist, No intubated, No tympanic membranes Neck: jvd, bruits; No supple, No non-tender, No masses, No thyromegaly, No nuchal rigidity, No other Respiratory: congested cough, crackles/rales, diminished breath sounds (On the left side below the level of T 6 mainly.); No clear to auscultation, No normal air movement, No intercostal retraction, No labored breathing, No respirations, No tactile fremitus, No wheezing, No other Cardiovascular: regular rate and rhythm, nl pulses; No bruits, No diastolic murmur, No edema, No gallop, No irregular rhythm, No jugular venous distention (JVD), No murmurs/extra sounds, No rub, No systolic murmur, No S3, No S4, No other Gastrointestinal: bowel sounds; No soft, No nl liver, spleen, No non-tender, No ascites, No distended, No firm, No hepatomegaly, No mass, No rebound or guarding, No splenomegaly, No surgical scars, No tender, No other Genitourinary - Female: No nl adnexae, No nl external genitalia, No CMT, No CVA tenderness, No uterus, No other Musculoskeletal: joint tenderness, muscle tone, muscle weakness; No nl extremities to inspection, No nl gait and stance, No range of motion, No spine non-tender, No swelling, No other Extremities: No normal pulses, No calf tenderness, No cyanosis, No clubbing, No edema, No pitting pedal edema, No palpable cord, No tenderness, No other 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: [employer] 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, confused, lethargic, numbness; No nl mental status, No nl speech, No nl strength, No DTR's symmetric, No focal weakness, No reflexes, No unresponsive, No other Skin: nl turgor; No rash or lesions, No diaphoresis, No ecchymosis, No laceration, No puncture, No other Lymph: enlarged; No nl lymph nodes, No nontender, No other Results Results 24hrs Laboratory Tests Test 10/29/18 04:28 Sodium Level 137 Potassium Level 4.0 Chloride Level 95 L Carbon Dioxide Level 32 H Anion Gap 10 Blood Urea Nitrogen 30 H Creatinine 1.10 H Est Glomerular Filtrat Rate mL/min 51 L Glucose Level 96 Calcium Level 9.2 Phosphorus Level 5.2 H Magnesium Level 1.9 Medications Medication Current Medications Acetaminophen (Tylenol Tab) 650 mg Q4H PRN PO PAIN LEVEL 1-10/10 Last administered on 10/26/18at 20:23; Admin Dose 650 MG; Start 10/21/18 at 23:30 Anastrozole (Arimidex) 1 mg DAILY PO Last administered on 10/28/18at 10:11; Admin Dose 1 MG; Start 10/22/18 at 09:00 Benazepril HCl (Lotensin) 5 mg DAILY PO Last administered on 10/28/18 10:09; Admin Dose 5 MG; Start 10/22/18 at 09:00 Bisacodyl (Dulcolax Supp) 10 mg Q8 [place] Last administered on 10/29/18 05:38; Adm in Dose 10 MG; Start 10/22/18 at 06:00 Carvedilol (Coreg) 3.125 mg BID PO Last administered on 10/28/18 21:20; Admin Dose 3.125 MG; Start 10/22/18 at 09:00 Docusate Sodium (Colace) 100 mg BID PO Last administered on 10/28/18 21:19; Admin Dose 100 MG; Start 10/22/18 at 09:00 Escitalopram Oxalate (Lexapro) 10 mg DAILY PO Last administered on 10/28/18 10:07; Admin Dose 10 MG; Start 10/22/18 at 09:00 Albuterol/ Ipratropium (Duoneb) 3 ml Q8H RESP THERAPY HHN Last administered on 10/29/18 08:32; Admin Dose 3 ML; Start 10/22/18 at 00:00 Loratadine (Claritin) 10 mg DAILY PO Last administered on 10/28/18 10:07; Admin Dose 10 MG; Start 10/22/18 at 09:00 Magnesium Hydroxide (Milk Of Mag) 30 ml DAILY PO Last administered on 10/24/18 08:42; Admin Dose 30 ML; Start 10/22/18 at 09:00 Oxycodone HCl (Oxycontin) 20 mg Q12 PO Last administered on 10/28/18 21:20; Admin Dose 20 MG; Start 10/22/18 at 09:00 Pantoprazole (Protonix Tab) 40 mg AC BREAKFAST PO Last administered on 10/29/18 04:50; Admin Dose 40 MG; Start 10/22/18 at 07:25 Polyethylene Glycol (Miralax) 17 gm DAILY PO ; Start 10/22/18 at 09:00 Simethicone (Mylicon) 80 mg Q8H PO Last administered on 10/29/18 04:49; Admin Dose 80 MG; Start 10/21/18 at 23:30 Spironolactone (Aldactone) 50 mg DAILY PO Last administered on 10/28/18 10:09; Admin Dose 50 MG; Start 10/22/18 at 09:00 Zolpidem Tartrate (Ambien) 10 mg HS PRN PO INSOMNIA Last administered on 10/22/18 21:20; Admin Dose 10 MG; Start 10/21/18 at 23:30 Morphine Sulfate (morphine) 2 mg Q4H PRN IV SEVERE PAIN LEVEL 7-10 Last administered on 10/23/18 14:15; Admin Dose 2 MG; Start 10/22/18 at 01:30 Potassium Chloride (Klor-Con 20) 20 meq BID PO Last administered on 10/28/18 21:19; Admin Dose 20 MEQ; Start 10/22/18 at 13:00 Furosemide (Lasix) 40 mg BID DIURETICS PO Last administered on 10/29/18 04:50; Admin Dose 40 MG; Start 10/26/18 at 06:00 Phenol (Cepastat Lozenge) 1 lozenge Q1H PRN MT sore throat Last administered on 10/29/18 04:49; Admin Dose 1 LOZENGE; Start 10/27/18 at 21:30 Guaifenesin/ Codeine Phosphate (Robitussin Ac Liquid Cup) 10 ml Q8 PRN PO cough Last administered on 10/28/18 22:42; Admin Dose 10 ML; Start 10/27/18 at 21:30 Acetazolamide (Diamox) 250 mg BID PO ; Start 10/29/18 at 09:00 RUSS JEROME MD October 29, 2018 09:11
[2018-10-29] MEDS: POTASSIUM CHLORIDE (SR) 20 MEQ TAB PO SCH ×2 (09:39→22:12)
[2018-10-29] MEDS: oxyCODONE (CR) 20 MG TAB [oxyCONTIN] PO SCH ×2 (09:39→22:12)
[2018-10-29] MEDS: SPIRONOLACTONE 50 MG TAB PO SCH (09:40)
[2018-10-29] MEDS: ESCITALOPRAM 10 MG TAB PO SCH (09:40)
[2018-10-29] MEDS: LORATADINE 10 MG TAB PO SCH (09:40)
[2018-10-29] MEDS: DOCUSATE SODIUM 100 MG CAP PO SCH ×2 (09:40→22:11)
[2018-10-29] MEDS: ACETAZOLAMIDE 250 MG TAB PO SCH ×2 (09:48→22:12)
[2018-10-29] MEDS: ANASTROZOLE 1 MG TAB PO SCH (11:33)
--- NOTE | 2018-10-29 11:40 | CONS ---
Consult Date/Type/Reason Admit Date/Time October 21, 2018 at 17:39 Initial Consult Date 10/21/18 Requesting Provider: RUSS JEROME MD Date/Time of Note DATE: 10/29/18 TIME: 11:39 Subjective Pt sleeping - comfortable - overall reasonable fluid status. ROS: No fever, no chills, no nausea, no vomiting, no diarrhea/constipation No recent weight changes No chest pain, no PND, no orthopnea - chronic SOB No dizziness, blurred vision No thirst, no heat or cold intolerance Objective Vitals Vital Signs Date Temp Pulse Resp B/P (MAP) Pulse Ox O2 O2 Flow FiO2 Time Delivery Rate 10/29/18 81 20 89 21 08:33 10/29/18 98.2 98/55 (69) 07:48 10/29/18 3.0 00:58 10/28/18 Nasal 23:54 Cannula Intake and Output 10/28/18 10/28/18 10/29/18 1515:00 23:00 07:00 IntakeIntake Total 200 ml 120 ml OutputOutput Total 600 ml BalanceBalance 200 ml -480 ml Exam Geneal: WN/WD/NAD, AOx 3 HEENT: Unicetric/atraumatic/EOMI (follow commands) NECK: JVD elevated, no thyromegaly Lymph: no lymphadenopathy HEART: regular with no S3, II/ systolic murmur at apex LUNGS: Coarse sounds ABD: soft, NT, ND, +BS : Intact Neuro: non focal SKIN: chronic changes EXT: 2+ edema Results/Medications Result Diagram: 10/29/18 0505 10/29/18 0428 Results 24 hrs Laboratory Tests Test 10/29/18 04:28 10/29/18 05:05 Sodium Level 137 Potassium Level 4.0 Chloride Level 95 L Carbon Dioxide Level 32 H Anion Gap 10 Blood Urea Nitrogen 30 H Creatinine 1.10 H Est Glomerular Filtrat Rate mL/min 51 L Glucose Level 96 Calcium Level 9.2 Phosphorus Level 5.2 H Magnesium Level 1.9 White Blood Count 2.9 #L Red Blood Count 3.23 L Hemoglobin 10.4 L Hematocrit 33.5 L Mean Corpuscular Volume 103.7 H Mean Corpuscular Hemoglobin 32.2 Mean Corpuscular Hemoglobin Concent 31.0 L Red Cell Distribution Width 16.9 H Platelet Count 211 Mean Platelet Volume 10.3 Immature Granulocytes % 0.000 L Neutrophils % 32.1 L Lymphocytes % 46.7 Monocytes % 17.8 H Eosinophils % 2.4 Basophils % 1.0 Nucleated Red Blood Cells % 0.0 Immature Granulocytes # 0.000 Neutrophils # 0.9 L Lymphocytes # 1.3 Monocytes # 0.5 Eosinophils # 0.1 Basophils # 0.0 Nucleated Red Blood Cells # 0.0 Home Meds Reported Medications Tuberculin,Purif.prot.deriv. (Tubersol) 5 Tub Unit/0.1 Ml Vial, 0.1 ML ID, VIAL INJECT QHS EVERY 10 DAYS FOR PPD SCREENING FOR 11 DAYS READ IN 48 HOURS,IF NEGATIVE 2STEP IN 7 DAYS FROM FIRST DOSE. 10/21/18 Acetaminophen* (Tylenol*) 325 Mg Tablet, 650 MG PO Q4H PRN for PAIN LEVEL 1- 03/27, TAB 10/21/18 Spironolactone* (Aldactone*) 50 Mg Tablet, 50 MG PO DAILY, #30 TAB HOLD FOR SBP<110 10/21/18 Simethicone* (Mylicon*) 80 Mg Tab, 80 MG PO Q8H, TAB 10/21/18 Olopatadine* (Patanol* Ophth) 0.1% - 5 Ml Drops, 1 DROP BOTH EYES BID, EA 10/21/18 Hydrocodone/Acetaminophen (Harrah 10-325 Tablet) 1 Each Tablet, 1 EACH PO Q4H, TAB 10/21/18 Loratadine* (Loratadine*) 10 Mg Tablet, 10 MG PO DAILY for FOR 3 MONTHS, #30 TAB 10/21/18 Lidocaine (Lidocaine) 1 Each Adh..patch, 1 EACH TP DAILY 10/21/18 Ipratropium-Albuterol (Ipratropium-Albuterol) 0.5-3 Mg/3 Ml Ampul.neb, 3 ML INHALATION Q8H, #30 VIAL 10/21/18 Furosemide* (Furosemide*) 40 Mg Tablet, 40 MG PO BID, TAB HOLD FOR SBP<110 10/21/18 Na Phos,M-B/Na Phos,Di-Ba (Fleet Enema Extra) Unknown Strength Enema, 1 APPLIC RC NEEDED for CONSTIPATION, ENEMA 10/21/18 Bisacodyl (Dulcolax) 10 Mg Supp.rect, 10 MG RC NEEDED, SUPP.RECT 10/21/18 Potassium Chloride* (Potassium Chloride*) 20 Meq Tablet.er, 20 MEQ PO DAILY, TAB.SA 09/09/18 Pantoprazole* (Pantoprazole*) 40 Mg Tablet.dr, 40 MG PO AC BREAKFAST, TAB 08/22/18 Oxycodone Hcl* (Oxycontin*) 20 Mg Tab.er.12h, 20 MG PO Q12, TAB 08/22/18 Amlodipine Besylate* (Norvasc*) 5 Mg Tablet, 5 MG PO DAILY, TAB HOLD FOR SBP <110. 08/22/18 Polyethylene Glycol* (Miralax*) 17 Gm Powd.pack, 17 GM PO DAILY, #60 PACKET 08/22/18 Magnesium Hydroxide* (Milk Of Magnesia*) 400 Mg/5 Ml Oral.susp, 30 ML PO DAILY, ML 08/22/18 Escitalopram Oxalate* (Lexapro*) 10 Mg Tablet, 10 MG PO DAILY, #30 TAB 08/22/18 Docusate Sodium* (Colace*) 100 Mg Capsule, 100 MG PO BID, #60 CAP 08/22/18 Carvedilol* (Carvedilol*) 3.125 Mg Tablet, 3.125 MG PO BID, #60 TAB HOLD FOR SBP <110 OR OH <60. GIVE WITH FOOD. 08/22/18 Benazepril Hcl* (Benazepril Hcl*) 5 Mg Tablet, 5 MG PO DAILY, #60 TAB HOLD FOR SBP <110. 08/22/18 Anastrozole* (Arimidex*) 1 Mg Tablet, 1 MG PO DAILY, #30 TAB 08/22/18 Medications Current Medications Acetaminophen (Tylenol Tab) 650 mg Q4H PRN PO PAIN LEVEL 1-03/27 Last administered on 10/26/18at 20:23; Admin Dose 650 MG; Start 10/21/18 at 23:30 Anastrozole (Arimidex) 1 mg DAILY PO Last administered on 10/29/18at 11:33; Admin Dose 1 MG; Start 10/22/18 at 09:00 Benazepril HCl (Lotensin) 5 mg DAILY PO Last administered on 10/28/18at 10:09; Admin Dose 5 MG; Start 10/22/18 at 09:00 Bisacodyl (Dulcolax Supp) 10 mg Q8 OH Last administered on 10/29/18 05:38; Admin Dose 10 MG; Start 10/22/18 at 06:00 Carvedilol (Coreg) 3.125 mg BID PO Last administered on 10/28/18 21:20; Admin Dose 3.125 MG; Start 10/22/18 at 09:00 Docusate Sodium (Colace) 100 mg BID PO Last administered on 10/29/18 09:40; Admin Dose 100 MG; Start 10/22/18 at 09:00 Escitalopram Oxalate (Lexapro) 10 mg DAILY PO Last administered on 10/29/18 09:40; Admin Dose 10 MG; Start 10/22/18 at 09:00 Albuterol/ Ipratropium (Duoneb) 3 ml Q8H RESP THERAPY HHN Last administered on 10/29/18 08:32; Admin Dose 3 ML; Start 10/22/18 at 00:00 Loratadine (Claritin) 10 mg DAILY PO Last administered on 10/29/18 09:40; Admin Dose 10 MG; Start 10/22/18 at 09:00 Magnesium Hydroxide (Milk Of Mag) 30 ml DAILY PO Last administered on 10/24/18 08:42; Admin Dose 30 ML; Start 10/22/18 at 09:00 Oxycodone HCl (Oxycontin) 20 mg Q12 PO Last administered on 10/29/18 09:39; Admin Dose 20 MG; Start 10/22/18 at 09:00 Pantoprazole (Protonix Tab) 40 mg AC BREAKFAST PO Last administered on 10/29/18 04:50; Admin Dose 40 MG; Start 10/22/18 at 07:25 Polyethylene Glycol (Miralax) 17 gm DAILY PO ; Start 10/22/18 at 09:00 Simethicone (Mylicon) 80 mg Q8H PO Last administered on 10/29/18 04:49; Admin Dose 80 MG; Start 10/21/18 at 23:30 Spironolactone (Aldactone) 50 mg DAILY PO Last administered on 10/29/18 09:40; Admin Dose 50 MG; Start 10/22/18 at 09:00 Zolpidem Tartrate (Ambien) 10 mg HS PRN PO INSOMNIA Last administered on 5/7/19at 21:20; Admin Dose 10 MG; Start 10/21/18 at 23:30 Morphine Sulfate (morphine) 2 mg Q4H PRN IV SEVERE PAIN LEVEL 7-10 Last administered on 10/23/18 14:15; Admin Dose 2 MG; Start 10/22/18 at 01:30 Potassium Chloride (Klor-Con 20) 20 meq BID PO Last administered on 10/29/18 09:39; Admin Dose 20 MEQ; Start 10/22/18 at 13:00 Furosemide (Lasix) 40 mg BID DIURETICS PO Last administered on 10/29/18 04:50; Admin Dose 40 MG; Start 10/26/18 at 06:00 Phenol (Cepastat Lozenge) 1 lozenge Q1H PRN MT sore throat Last administered on 10/29/18 04:49; Admin Dose 1 LOZENGE; Start 10/27/18 at 21:30 Guaifenesin/ Codeine Phosphate (Robitussin Ac Liquid Cup) 10 ml Q8 PRN PO cough Last administered on 10/28/18 22:42; Admin Dose 10 ML; Start 10/27/18 at 21:30 Acetazolamide (Diamox) 250 mg BID PO Last administered on 10/29/18 09:48; Admin Dose 250 MG; Start 10/29/18 at 09:00 Assessment/Plan Hospital Course (Demo Recall) 1. Congestive heart failure exacerbation would be diastolic, acute on chronic by most recent echo.-now s/p echo this admit with EF 60/small effusion - better now, responding to diuresis. BETTER overall- very robust urine output - improved CHF. Overall stable. 2. Abnormal electrocardiogram with low voltage, rule out pericardial effusion - stable, no signs of tamponade. Treated. Off tele now. 3. Hypertension-currently borderline hypotension - treated with meds. BP stable overall. 4. Metastatic breast carcinoma- responded to chemo per Dr. Fernández - still poor prognosis. 5. History of pathologic fractures of the leg, status post open reduction and internal fixation - pain controlled. 6. Anemia =- Rx per hem-onc team. 7. Increased BNP consistent with patient's congestive heart failure. 8. Pericardial effusion-small by echo EMILY NELSON MD October 29, 2018 11:40
[2018-10-29] MEDS: GUAIFENESIN/CODEINE 5ML CUP PO PRN ×2 (12:16→22:13)
[2018-10-29 14:44] VITALS: BP 98/56; PULSE 86; RESP 18
[2018-10-29] MEDS: ACETAMINOPHEN 325 MG TAB PO PRN (17:15)
[2018-10-29 20:06] VITALS: BP 103/59; PULSE 88; RESP 18
[2018-10-29] MEDS: FLUTICASONE 0.05% 16 GM NAS SPRAY NASAL SCH (22:11)
--- NOTE | 2018-10-29 22:20 | CONS ---
Assessment/Plan Assessment/Plan Hospital Course (Demo Recall) METASTATIC BREAST CANCER WITH PRIMARY ADENOCARCINOMA IN the left breast. MULTIPLE BONY METS, PULMONARY METS, LIVER METS CHEMO ON HOLD PT HAS A VERY GOOD RESPONSE TO CHEMO AND AI CONT AI FOR NOW CT ABD FOR RESTAGING 08.27.18- noted , stable Leukopenia- post chemo, IMPROVING post NEUPOGEN monitor closely post Neutropenia with occasional fever and chills. - resolved Anemia chronic disease SOB PLEURAL EFFUSIONS, NEG CYTOLOGY POST thoracentesis Fluid overload diuretic cardiology F-UP Severe pain in the interscapular and lumbar sacral area most probably metastatic lesion possible femoral fracture. pathologic fracture of T9 with 60% of loss of height. Bony pain with multiple bony mets post XRT will d/w dr Ocampo Obesity. Weight loss 60 pounds during the last 2 years PMS. Myopia. Anxiety disorder. Claustrophobia. Posttraumatic stress disorder. Pain in the left forearm with a history of fracture of ulna and radius. Tachycardia Hypoxemia at night marginal improved after 2 L of nasal cannula oxygen. Deconditioning Pain syndrome. Today the most painful zone is in the right hip area. X-ray did not show any fractures. Hyponatremia- resolved Hypoalbuminemia Right sided cp after catheter insertion and correction less discomfort. Decreased edema both lower extremities with hypotension-improving Swelling of the left forearm-persist. Consultation Date/Type/Reason Admit Date/Time October 21, 2018 at 17:39 Initial Consult Date 10/21/18 Type of Consult [facility] Requesting Provider: RUSS JEROME MD Date/Time of Note DATE: 10/29/18 TIME: 22:19 24 HR Interval Summary Free Text/Dictation all noted pain + sob Exam/Review of Systems Exam Vitals Vital Signs Date Temp Pulse Resp B/P (MAP) Pulse Ox O2 O2 Flow FiO2 Time Delivery Rate 10/29/18 98.3 88 18 103/59 93 Room Air 20:06 (74) 10/29/18 2.0 17:39 10/29/18 21 16:21 Intake and Output 10/28/18 10/28/18 10/29/18 1515:00 23:00 07:00 IntakeIntake Total 200 ml 120 ml OutputOutput Total 600 ml BalanceBalance 200 ml -480 ml Exam HEENT: Head is normocephalic. NECK: Supple. HEART: Regular rate. LUNGS: Show diminished breath sounds at the base. ABDOMEN: Soft, nontender to palpation. No rebound or guarding. EXTREMITIES: Negative for clubbing, cyanosis, positive edema. DERMATOLOGIC: No rashes. MUSCULOSKELETAL: No joint effusion. NEUROLOGIC: No change in exam. Results Result Diagram: 10/29/18 0505 10/29/18 0428 Results 24hrs Laboratory Tests Test 10/29/18 04:28 10/29/18 05:05 Sodium Level 137 Potassium Level 4.0 Chloride Level 95 L Carbon Dioxide Level 32 H Anion Gap 10 Blood Urea Nitrogen 30 H Creatinine 1.10 H Est Glomerular Filtrat Rate mL/min 51 L Glucose Level 96 Calcium Level 9.2 Phosphorus Level 5.2 H Magnesium Level 1.9 White Blood Count 2.9 #L Red Blood Count 3.23 L Hemoglobin 10.4 L Hematocrit 33.5 L Mean Corpuscular Volume 103.7 H Mean Corpuscular Hemoglobin 32.2 Mean Corpuscular Hemoglobin Concent 31.0 L Red Cell Distribution Width 16.9 H Platelet Count 211 Mean Platelet Volume 10.3 Immature Granulocytes % 0.000 L Neutrophils % 32.1 L Lymphocytes % 46.7 Monocytes % 17.8 H Eosinophils % 2.4 Basophils % 1.0 Nucleated Red Blood Cells % 0.0 Immature Granulocytes # 0.000 Neutrophils # 0.9 L Lymphocytes # 1.3 Monocytes # 0.5 Eosinophils # 0.1 Basophils # 0.0 Nucleated Red Blood Cells # 0.0 Medications Medication Current Medications Acetaminophen (Tylenol Tab) 650 mg Q4H PRN PO PAIN LEVEL 1-10/10 Last administered on 10/29/18at 17:15; Admin Dose 650 MG; Start 10/21/18 at 23:30 Anastrozole (Arimidex) 1 mg DAILY PO Last administered on 10/29/18at 11:33; Admin Dose 1 MG; Start 10/22/18 at 09:00 Benazepril HCl (Lotensin) 5 mg DAILY PO Last administered on 10/28/18at 10:09; Admin Dose 5 MG; Start 10/22/18 at 09:00 Bisacodyl (Dulcolax Supp) 10 mg Q8 [place] Last administered on 10/29/18at 05:38; Admin Dose 10 MG; Start 10/22/18 at 06:00 Carvedilol (Coreg) 3.125 mg BID PO Last administered on 10/29/18 22:12; Admin Dose 3.125 MG; Start 10/22/18 at 09:00 Docusate Sodium (Colace) 100 mg BID PO Last administered on 10/29/18 22:11; Admin Dose 100 MG; Start 10/22/18 at 09:00 Escitalopram Oxalate (Lexapro) 10 mg DAILY PO Last administered on 10/29/18 09:40; Admin Dose 10 MG; Start 10/22/18 at 09:00 Albuterol/ Ipratropium (Duoneb) 3 ml Q8H RESP THERAPY HHN Last administered on 10/29/18 16:21; Admin Dose 3 ML; Start 10/22/18 at 00:00 Loratadine (Claritin) 10 mg DAILY PO Last administered on 10/29/18 09:40; Admin Dose 10 MG; Start 10/22/18 at 09:00 Magnesium Hydroxide (Milk Of Mag) 30 ml DAILY PO Last administered on 10/24/18 08:42; Admin Dose 30 ML; Start 10/22/18 at 09:00 Oxycodone HCl (Oxycontin) 20 mg Q12 PO Last administered on 10/29/18 22:12; Admin Dose 20 MG; Start 10/22/18 at 09:00 Pantoprazole (Protonix Tab) 40 mg AC BREAKFAST PO Last administered on 10/29/18 04:50; Admin Dose 40 MG; Start 10/22/18 at 07:25 Polyethylene Glycol (Miralax) 17 gm DAILY PO Last administered on 10/29/18 16:20; Admin Dose 17 GM; Start 10/22/18 at 09:00 Simethicone (Mylicon) 80 mg Q8H PO Last administered on 10/29/18 16:10; Admin Dose 80 MG; Start 10/21/18 at 23:30 Spironolactone (Aldactone) 50 mg DAILY PO Last administered on 10/29/18 09:40; Admin Dose 50 MG; Start 10/22/18 at 09:00 Zolpidem Tartrate (Ambien) 10 mg HS PRN PO INSOMNIA Last administered on 10/22/18 21:20; Admin Dose 10 MG; Start 10/21/18 at 23:30 Morphine Sulfate (morphine) 2 mg Q4H PRN IV SEVERE PAIN LEVEL 7-10 Last administered on 10/23/18 14:15; Admin Dose 2 MG; Start 10/22/18 at 01:30 Potassium Chloride (Klor-Con 20) 20 meq BID PO Last administered on 10/29/18 22:12; Admin Dose 20 MEQ; Start 10/22/18 at 13:00 Furosemide (Lasix) 40 mg BID DIURETICS PO Last administered on 10/29/18 17:20; Admin Dose 40 MG; Start 10/26/18 at 06:00 Phenol (Cepastat Lozenge) 1 lozenge Q1H PRN MT sore throat Last administered on 10/29/18 04:49; Admin Dose 1 LOZENGE; Start 10/27/18 at 21:30 Guaifenesin/ Codeine Phosphate (Robitussin Ac Liquid Cup) 10 ml Q8 PRN PO cough Last administered on 10/29/18 22:13; Admin Dose 10 ML; Start 10/27/18 at 21:30 Acetazolamide (Diamox) 250 mg BID PO Last administered on 10/29/18 22:12; Admin Dose 250 MG; Start 10/29/18 at 09:00 Fluticasone Propionate (Flonase 0.05% Nasal) 1 spray BID NASAL Last administered on 10/29/18 22:11; Admin Dose 1 SPRAY; Start 10/29/18 at 21:00 DES DUNAWAY MD October 29, 2018 22:20
[2018-10-30 01:47] VITALS: BP 107/60; PULSE 92; RESP 18
[2018-10-30] MEDS: BISACODYL 10 MG SUPP PR SCH ×3 (06:00→22:00)
[2018-10-30] MEDS: PANTOPRAZOLE (EC) 40 MG TAB PO SCH (06:36)
[2018-10-30] MEDS: FUROSEMIDE 40 MG TAB PO SCH ×2 (06:38→19:23)
[2018-10-30 07:35] VITALS: BP 113/55; PULSE 84; RESP 18
[2018-10-30] MEDS: ALBUTEROL/IPRATROPIUM (NEB) 3 ML AMP HHN SCH ×2 (08:38→17:02)
--- NOTE | 2018-10-30 08:49 | PN ---
Date/Time of Note Date/Time of Note DATE: 10/30/18 TIME: 08:44 Assessment/Plan VTE Prophylaxis Risk score (from Nsg)>0 risk: 5 SCD applied (from Nsg): No SCD contraindicated: other (on.) Pharmacological prophylaxis: LMWH Lines/Catheters IV Catheter Type (from Nrs): [place] [employer] Central line still needed: No Urinary Cath still in place: No Reason Cath still needed: urinary retention Assessment/Plan Assessment/Plan . PRIMARY ADENOCARCINOMA of the left breast. MULTIPLE BONY METS, PULMONARY METS;LIVER METS CHEMO ON HOLD; PT HAS A VERY GOOD RESPONSE TO CHEMO AND AI 2. Severe pain in the interscapular and lumbar sacral area most probably metastatic lesion possible femoral fracture. pathologic fracture of T9 with 60% of loss of height. Neurosurgical f/u. 3. Obesity. 4. Weight loss 60 pounds during the last 2 years by diet 5. PMS. 6. Myopia. 7. Anemia chronic disease with a drop of her hematocrit to 27; Latest results 28. Will recheck tomorrow;Leukopenia.Thrombocytopenia; 8. Anxiety disorder. Claustrophobia. Increase Ativan to 1 mg every 8 as needed at Lexapro 10 mg daily. 9. Posttraumatic stress disorder. 10. Pain in the left forearm with a history of fracture of ulna and radius. 11. Tachycardia 12. Hypoxemia at night marginal improved after 2 L of nasal cannula oxygen. 13. Deconditioning 14. 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 MRI: 09/28/18:diffuse osseous metastatic disease with multiple pathologic compression fractures at least involving the T4, T5, T7, T9 and T11 levels. There is likely mild cortical breakthrough at several levels resulting in mild central canal narrowing. No gross evidence of cord compression is seen.. 15. Pain syndrome. Today the most painful zone is in the right hip area. 16. Hyponatremia-corrected; hypokalemia now hyperkalemic 5.2 hold potassium p.o. today and hold Aldactone today.Recheck and sodium chloride daily with the dose to 4 mg today 17. Leucopenia-improved. 18. Neutropenia with occasional fever and chills. Last chemotherapy 5 days ago. 19. Hypoalbuminemia. 20.Right sided cp after catheter insertion and correction less discomfort. 21. Decreased edema both lower extremities with [id number] with Pleural and Pericardial effusion. 22. pain syndrome 23.bilateral pleural effusions ; s/p left thoracentesis, During the procedure the probe of the u/s was placed to the right side of the chest which showed only minimal amount of liquid on the right pleural cavity. Reaccumulation of the pleural fluid. Plan to tap from the right side tomorrow a.m. 24. Systolic over diastolic congestive heart failure with a right more than left lower extremity swelling with no DVT in latest venous Doppler. 25. Swelling of the left forearm-persist. Cellulitis of the left forearm with increased edema anteriorly.-Today it is less edematous 26. Pathologic fracture of the right hip;s/p hemiarthroplasty of right hip . 27. Dizziness 28. Chills. 29. Memory impairment. 30. Upper respiratory infection pharyngitis with dry cough. 31. Decreased voice with wheezing. Result Diagram: 10/30/18 0456 10/30/18 0456 Results 24hrs Laboratory Tests Test 10/30/18 04:56 White Blood Count 2.5 L Red Blood Count 2.91 L Hemoglobin 9.5 L Hematocrit 29.7 L Mean Corpuscular Volume 102.1 H Mean Corpuscular Hemoglobin 32.6 Mean Corpuscular Hemoglobin Concent 32.0 Red Cell Distribution Width 16.5 H Platelet Count 153 # Mean Platelet Volume 9.1 Immature Granulocytes % 0.000 L Neutrophils % 32.0 L Lymphocytes % 46.2 Monocytes % 20.2 H Eosinophils % 0.8 Basophils % 0.8 Nucleated Red Blood Cells % 0.0 Immature Granulocytes # 0.000 Neutrophils # 0.8 L Lymphocytes # 1.1 Monocytes # 0.5 Eosinophils # 0.0 Basophils # 0.0 Nucleated Red Blood Cells # 0.0 Sodium Level 136 Potassium Level 4.1 Chloride Level 100 Carbon Dioxide Level 28 Anion Gap 8 Blood Urea Nitrogen 24 H Creatinine 0.91 Est Glomerular Filtrat Rate mL/min > 60 Glucose Level 102 Calcium Level 8.8 Phosphorus Level 5.0 H Magnesium Level 2.0 Total Bilirubin 0.5 Direct Bilirubin 0.00 Indirect Bilirubin 0.5 Aspartate Amino Transf (AST/SGOT) 33 Alanine Aminotransferase (ALT/SGPT) 25 Alkaline Phosphatase 66 Total Protein 6.2 Albumin 3.4 Globulin 2.80 Albumin/Globulin Ratio 1.21 Subjective 24 Hr Interval Summary Free Text/Dictation I am losing my voice. Dry cough most of the time. Occasionally there is some sputum coming out but I cannot expectorate it. I am wheezing. I had 2 episodes of chills last night. Generalized body ache. I am more weak than before. Constitutional: chills, diaphoresis, febrile, poor po, requiring O2; No no complaints, No improved, No disoriented, No requiring IVF, No other Eyes: discharge, redness; No no complaints, No pain, No visual change, No other ENT: congestion, discharge, sore throat, other (Decreased voice.); No no complaints, No bleeding, No pain, No dysphagia Respiratory: cough, pleuritic pain, shortness of breath, sputum, wheezing; No no complaints, No pain, No other Cardiovascular: chest pain, edema, lightheadedness, orthopenea, palpitations, paroxysmal nocturnal dyspnea; No no complaints, No other Gastrointestinal: constipation, decreased appetite, flatus; No no complaints, No pain, No blood, No diarrhea, No nausea, No passing stool, No vomiting, No other Genitourinary: dysuria; No no complaints, No bleeding, No discharge, No flank pain, No hematuria, No other Musculoskeletal: back pain, bone/joint pain, neck pain; No no complaints, No restricted range of motion, No swelling, No other Skin: bruising; No no complaints, No erythema, No laceration, No pruritis, No rash, No skin lesions, No other Neurologic: dizziness, headache; No no complaints, No confusion, No focal-weakness, No syncope, No seizure, No other Endocrine: No no complaints, No polyuria, No polydypsia, No dry skin, No temp intolerance, No other Lymphatic: No no complaints, No adenopathy, No tender nodes, No lymphadema, No other Psychological: anxiety; No no complaints, No nl mood/affect, No confusion, No depression, No suici davi, No other Exam/Review of Systems Exam Vitals Vital Signs Date Temp Pulse Resp B/P (MAP) Pulse Ox O2 O2 Flow FiO2 Time Delivery Rate 10/30/18 98.5 84 18 113/55 96 07:35 (74) 10/30/18 2.0 03:18 10/30/18 Nasal 01:47 Cannula 10/29/18 21 23:19 Intake and Output 10/29/18 10/29/18 10/30/18 1515:00 23:00 07:00 IntakeIntake Total 200 ml 400 ml OutputOutput Total 150 ml 350 ml BalanceBalance 200 ml 250 ml -350 ml Constitutional: alert, oriented, well developed, non-verbal, distress, frail, obese; No other Psych: anxiety; No no complaints, No nl mood/affect, No confusion, No depression, No suicidal, No other Head: normocephalic, atraumatic; No lacerations, No hematomas, No other Eyes: EOMI, nl lids, PERRL; No nl conjunctiva, No nl sclera, No icteric, No fundi, disc, No other ENMT: nl nasal mucosa & septum; No nl external ears & nose, No nl lips & teeth, No mucosa pink and moist, No intubated, No tympanic membranes, No other Neck: thyromegaly, nuchal rigidity; No supple, No non-tender, No jvd, No bruits, No masses, No other Respiratory: congested cough, diminished breath sounds (Left mid chest post eriorly.), labored breathing, respirations, wheezing (More prominent in the left anterior superior part); No clear to auscultation, No normal air movement, No crackles/rales, No intercostal retraction, No tactile fremitus, No other Cardiovascular: regular rate and rhythm, nl pulses, edema, murmurs/extra sounds, systolic murmur; No bruits, No diastolic murmur, No gallop, No irregular rhythm, No jugular venous distention (JVD), No rub, No S3, No S4, No other Gastrointestinal: soft, nl liver, spleen, bowel sounds, distended; No non-tender, No ascites, No firm, No hepatomegaly, No mass, No rebound or guarding, No splenomegaly, No surgical scars, No tender, No other Genitourinary - Female: nl adnexae, nl external genitalia; No CMT, No CVA tenderness, No uterus, No other Musculoskeletal: joint tenderness; No nl extremities to inspection, No nl gait and stance, No muscle tone, No muscle weakness, No range of motion, No spine non-tender, No swelling, No other Extremities: edema, pitting pedal edema; No normal pulses, No calf tenderness, No cyanosis, No clubbing, No palpable cord, No tenderness, No other 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: HE[employer] C[employer] ADMINISTRATOR 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, nl mental status; No nl speech, No nl strength, No confused, No DTR's symmetric, No focal weakness, No lethargic, No numbness, No reflexes, No unresponsive, No other Skin: diaphoresis; No nl turgor, No rash or lesions, No ecchymosis, No laceration, No puncture, No other Lymph: No nl lymph nodes, No enlarged, No nontender, No other Results Results 24hrs Laboratory Tests Test 10/30/18 04:56 White Blood Count 2.5 L Red Blood Count 2.91 L Hemoglobin 9.5 L Hematocrit 29.7 L Mean Corpuscular Volume 102.1 H Mean Corpuscular Hemoglobin 32.6 Mean Corpuscular Hemoglobin Concent 32.0 Red Cell Distribution Width 16.5 H Platelet Count 153 # Mean Platelet Volume 9.1 Immature Granulocytes % 0.000 L Neutrophils % 32.0 L Lymphocytes % 46.2 Monocytes % 20.2 H Eosinophils % 0.8 Basophils % 0.8 Nucleated Red Blood Cells % 0.0 Immature Granulocytes # 0.000 Neutrophils # 0.8 L Lymphocytes # 1.1 Monocytes # 0.5 Eosinophils # 0.0 Basophils # 0.0 Nucleated Red Blood Cells # 0.0 Sodium Level 136 Potassium Level 4.1 Chloride Level 100 Carbon Dioxide Level 28 Anion Gap 8 Blood Urea Nitrogen 24 H Creatinine 0.91 Est Glomerular Filtrat Rate mL/min > 60 Glucose Level 102 Calcium Level 8.8 Phosphorus Level 5.0 H Magnesium Level 2.0 Total Bilirubin 0.5 Direct Bilirubin 0.00 Indirect Bilirubin 0.5 Aspartate Amino Transf (AST/SGOT) 33 Alanine Aminotransferase (ALT/SGPT) 25 Alkaline Phosphatase 66 Total Protein 6.2 Albumin 3.4 Globulin 2.80 Albumin/Globulin Ratio 1.21 Medications Medication Current Medications Acetaminophen (Tylenol Tab) 650 mg Q4H PRN PO PAIN LEVEL 1-03/27 Last ad ministered on 10/29/18at 17:15; Admin Dose 650 MG; Start 10/21/18 at 23:30 Anastrozole (Arimidex) 1 mg DAILY PO Last administered on 10/29/18at 11:33; Admin Dose 1 MG; Start 10/22/18 at 09:00 Benazepril HCl (Lotensin) 5 mg DAILY PO Last administered on 10/28/18 10:09; Admin Dose 5 MG; Start 10/22/18 at 09:00 Bisacodyl (Dulcolax Supp) 10 mg Q8 [place] Last administered on 10/29/18 05:38; Admin Dose 10 MG; Start 10/22/18 at 06:00 Carvedilol (Coreg) 3.125 mg BID PO Last administered on 10/29/18 22:12; Admin Dose 3.125 MG; Start 10/22/18 at 09:00 Docusate Sodium (Colace) 100 mg BID PO Last administered on 10/29/18 22:11; Admin Dose 100 MG; Start 10/22/18 at 09:00 Escitalopram Oxalate (Lexapro) 10 mg DAILY PO Last administered on 10/29/18 09:40; Admin Dose 10 MG; Start 10/22/18 at 09:00 Albuterol/ Ipratropium (Duoneb) 3 ml Q8H RESP THERAPY HHN Last administered on 10/30/18 08:38; Admin Dose 3 ML; Start 10/22/18 at 00:00 Loratadine (Claritin) 10 mg DAILY PO Last administered on 10/29/18 09:40; Admin Dose 10 MG; Start 10/22/18 at 09:00 Magnesium Hydroxide (Milk Of Mag) 30 ml DAILY PO Last administered on 10/24/18 08:42; Admin Dose 30 ML; Start 10/22/18 at 09:00 Oxycodone HCl (Oxycontin) 20 mg Q12 PO Last administered on 10/29/18 22:12; Admin Dose 20 MG; Start 10/22/18 at 09:00 Pantoprazole (Protonix Tab) 40 mg AC BREAKFAST PO Last administered on 10/30/18 06:36; Admin Dose 40 MG; Start 10/22/18 at 07:25 Polyethylene Glycol (Miralax) 17 gm DAILY PO Last administered on 10/29/18 16:20; Admin Dose 17 GM; Start 10/22/18 at 09:00 Simethicone (Mylicon) 80 mg Q8H PO Last administered on 10/29/18 16:10; Admin Dose 80 MG; Start 10/21/18 at 23:30 Spironolactone (Aldactone) 50 mg DAILY PO Last administered on 10/29/18 09:40; Admin Dose 50 MG; Start 10/22/18 at 09:00 Zolpidem Tartrate (Ambien) 10 mg HS PRN PO INSOMNIA Last administered on 10/22/18 21:20; Admin Dose 10 MG; Start 10/21/18 at 23:30 Morphine Sulfate (morphine) 2 mg Q4H PRN IV SEVERE PAIN LEVEL 7-10 Last administered on 10/23/18 14:15; Admin Dose 2 MG; Start 10/22/18 at 01:30 Potassium Chloride (Klor-Con 20) 20 meq BID PO Last administered on 10/29/18 22:12; Admin Dose 20 MEQ; Start 10/22/18 at 13:00 Furosemide (Lasix) 40 mg BID DIURETICS PO Last administered on 10/30/18 06:38; Admin Dose 40 MG; Start 10/26/18 at 06:00 Phenol (Cepastat Lozenge) 1 lozenge Q1H PRN MT sore throat Last administered on 10/29/18 04:49; Admin Dose 1 LOZENGE; Start 10/27/18 at 21:30 Guaifenesin/ Codeine Phosphate (Robitussin Ac Liquid Cup) 10 ml Q8 PRN PO cough Last administered on 10/29/18 22:13; Admin Dose 10 ML; Start 10/27/18 at 21:30 Acetazolamide (Diamox) 250 mg BID PO Last administered on 10/29/18 22:12; Admin Dose 250 MG; Start 10/29/18 at 09:00 Fluticasone Propionate (Flonase 0.05% Nasal) 1 spray BID NASAL Last administered on 10/29/18 22:11; Admin Dose 1 SPRAY; Start 10/29/18 at 21:00 RUSS JEROME MD October 30, 2018 08:49
[2018-10-30] MEDS: MAGNESIUM HYDROXIDE 30ML CUP PO SCH (09:00)
[2018-10-30] MEDS: ESCITALOPRAM 10 MG TAB PO SCH (09:26)
[2018-10-30] MEDS: ACETAZOLAMIDE 250 MG TAB PO SCH ×2 (09:26→20:34)
[2018-10-30] MEDS: POTASSIUM CHLORIDE (SR) 20 MEQ TAB PO SCH ×2 (09:26→20:36)
[2018-10-30] MEDS: DOCUSATE SODIUM 100 MG CAP PO SCH ×2 (09:27→20:34)
[2018-10-30] MEDS: BENAZEPRIL 5 MG TAB PO SCH (09:27)
[2018-10-30] MEDS: LORATADINE 10 MG TAB PO SCH (09:27)
[2018-10-30] MEDS: FLUTICASONE 0.05% 16 GM NAS SPRAY NASAL SCH ×2 (09:28→20:34)
[2018-10-30] MEDS: ANASTROZOLE 1 MG TAB PO SCH (09:28)
[2018-10-30] MEDS: SPIRONOLACTONE 50 MG TAB PO SCH (09:28)
[2018-10-30] MEDS: POLYETHYLENE GLYCOL 17 GM PACKET PO SCH (09:29)
[2018-10-30] MEDS: BUDESONIDE (NEB) 0.5MG/2ML AMP HHN SCH ×2 (09:30→21:03)
[2018-10-30] MEDS: GUAIFENESIN/CODEINE 5ML CUP PO PRN ×2 (09:32→19:23)
[2018-10-30] MEDS: oxyCODONE (CR) 20 MG TAB [oxyCONTIN] PO SCH ×2 (09:32→20:36)
--- NOTE | 2018-10-30 09:53 | PN ---
DATE: 10/30/2018 SUBJECTIVE: The patient states her urinary output has improved. Her swelling is improved. No other events noted. OBJECTIVE: VITAL SIGNS: Blood pressure is 113/55, pulse 84, temperature 98.5. HEENT: Head is normocephalic. NECK: Supple. HEART: Regular rate. LUNGS: Show diminished breath sounds at the base. ABDOMEN: Soft, nontender to palpation without rebound or guarding. EXTREMITIES: Negative for clubbing, cyanosis. Positive edema, improving. DERMATOLOGIC: No rashes. MUSCULOSKELETAL: No joint effusion. NEUROLOGIC: No change in exam. MEDICATIONS: Reviewed. LABORATORY DATA: Reviewed. ASSESSMENT AND PLAN: 1. Acute hypoxemic respiratory failure, etiology is secondary to pleural effusion. The patient is s tatus post thoracentesis, improved. 2. Volume overload. Etiology is multifactorial secondary to diastolic heart failure. Other possibi lities including questionable lymphogenic spread, questionable portal hypertension due to metastatic disease are considerations. The patient's edema is slowly improving. We will continue loop diuretic s. Continue Diamox. Continue Aldactone. Monitor electrolytes and renal function closely. 3. Nonoliguric acute kidney injury with previously normal baseline creatinine. Etiology is secondar y to diuretic therapy. Renal function has improved. Continue to monitor. 4. Alkalosis, improved. Continue Diamox. 5. Mineral bone disorder. Monitor calcium and phosphorus levels. 6. Breast cancer with metastasis to the liver and spine. Continue to monitor. 7. Hip fracture, status post arthroplasty. 8. Pleural effusion, status post thoracentesis. 9. Debility. 10. Chronic pain syndrome. Continue current pain regimen. Dictated By: ANDRÉS YO/KEANU Conf#: [id number] DID#: [id number] CC: RUSS JEROME MD;*EndCC*
[2018-10-30 15:54] VITALS: BP 106/71; PULSE 89; RESP 18
--- NOTE | 2018-10-30 16:01 | CONS ---
Assessment/Plan Assessment/Plan Hospital Course (Demo Recall) IMPRESSION: 1. Congestive heart failure exacerbation would be diastolic, acute on chronic by most recent echo.-now s/p echo this admit with EF 60/small effusion 2. Abnormal electrocardiogram with low voltage, rule out pericardial effusion. 3. Hypertension-currently borderline hypotension 4. Metastatic breast carcinoma. 5. History of pathologic fractures of the leg, status post open reduction and internal fixation. 6. Anemia. 7. Increased BNP consistent with patient's congestive heart failure. 8. Pericardial effusion-small by echo Recc: -Tele -Continue lasix/aldactone and considering changing lasix back to IV for increased efficacy -Consider additional IV albumin doses -Continue current coreg and benazepril and follow BP clsoely -follow K clsoely Consultation Date/Type/Reason Admit Date/Time October 21, 2018 at 17:39 Initial Consult Date 10/21/18 Type of Consult Cardiology Reason for Consultation CHF Requesting Provider: RUSS JEROME MD Date/Time of Note DATE: 10/30/18 TIME: 15:58 Exam/Review of Systems Vital Signs Vitals Vital Signs Date Temp Pulse Resp B/P (MAP) Pulse Ox O2 O2 Flow FiO2 Time Delivery Rate 10/30/18 98.5 89 18 106/71 99 Room Air 15:54 (83) 10/30/18 2.0 08:48 10/29/18 21 23:19 Intake and Output 10/29/18 10/29/18 10/30/18 1515:00 23:00 07:00 IntakeIntake Total 200 ml 400 ml OutputOutput Total 150 ml 350 ml BalanceBalance 200 ml 250 ml -350 ml Exam Exam Review of Systems: CONSTITUTIONAL: No fevers, chills. PULMONARY:mild sob CARDIOVASCULAR: No chest pain/palpitations GASTROINTESTINAL: No nausea/vomiting. GENITOURINARY: No hematuria/dysuria. MUSCULOSKELETAL: No myagias/arthalgias. PSYCHIATRIC: The patient denies depression. NEUROLOGIC: No weakness Constitutional: alert Psych: no complaints Head: normocephalic ENMT: mucosa pink and moist Neck: supple, jvd (9 cm water) Respiratory: diminished breath sounds (at bases/B) Cardiovascular: regular rate and rhythm Gastrointestinal: soft, non-tender Musculoskeletal: muscle tone (normal) Extremities: pitting pedal edema (bilateral) 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: other (No focal deficits) Labs Result Diagram: 10/30/18 0456 10/30/18 0456 Results 24hrs Laboratory Tests Test 10/30/18 04:56 White Blood Count 2.5 L Red Blood Count 2.91 L Hemoglobin 9.5 L Hematocrit 29.7 L Mean Corpuscular Volume 102.1 H Mean Corpuscular Hemoglobin 32.6 Mean Corpuscular Hemoglobin Concent 32.0 Red Cell Distribution Width 16.5 H Platelet Count 153 # Mean Platelet Volume 9.1 Immature Granulocytes % 0.000 L Neutrophils % 32.0 L Lymphocytes % 46.2 Monocytes % 20.2 H Eosinophils % 0.8 Basophils % 0.8 Nucleated Red Blood Cells % 0.0 Immature Granulocytes # 0.000 Neutrophils # 0.8 L Lymphocytes # 1.1 Monocytes # 0.5 Eosinophils # 0.0 Basophils # 0.0 Nucleated Red Blood Cells # 0.0 Sodium Level 136 Potassium Level 4.1 Chloride Level 100 Carbon Dioxide Level 28 Anion Gap 8 Blood Urea Nitrogen 24 H Creatinine 0.91 Est Glomerular Filtrat Rate mL/min > 60 Glucose Level 102 Calcium Level 8.8 Phosphorus Level 5.0 H Magnesium Level 2.0 Total Bilirubin 0.5 Direct Bilirubin 0.00 Indirect Bilirubin 0.5 Aspartate Amino Transf (AST/SGOT) 33 Alanine Aminotransferase (ALT/SGPT) 25 Alkaline Phosphatase 66 Total Protein 6.2 Albumin 3.4 Globulin 2.80 Albumin/Globulin Ratio 1.21 Medications Medications Current Medications Acetaminophen (Tylenol Tab) 650 mg Q4H PRN PO PAIN LEVEL 1-10/10 Last administered on 10/29/18at 17:15; Admin Dose 650 MG; Start 10/21/18 at 23:30 Anastrozole (Arimidex) 1 mg DAILY PO Last administered on 10/30/18at 09:28; Admin Dose 1 MG; Start 10/22/18 at 09:00 Benazepril HCl (Lotensin) 5 mg DAILY PO Last administered on 10/30/18at 09:27; Admin Dose 5 MG; Start 10/22/18 at 09:00 Bisacodyl (Dulcolax Supp) 10 mg Q8 [place] Last administered on 10/29/18at 05:38; Admin Dose 10 MG; Start 10/22/18 at 06:00 Carvedilol (Coreg) 3.125 mg BID PO Last administered on 10/30/18 09:27; Admin Dose 3.125 MG; Start 10/22/18 at 09:00 Docusate Sodium (Colace) 100 mg BID PO Last administered on 10/30/18 09:27; Admin Dose 100 MG; Start 10/22/18 at 09:00 Escitalopram Oxalate (Lexapro) 10 mg DAILY PO Last administered on 10/30/18 09:26; Admin Dose 10 MG; Start 10/22/18 at 09:00 Albuterol/ Ipratropium (Duoneb) 3 ml Q8H RESP THERAPY HHN Last administered on 10/30/18 08:38; Admin Dose 3 ML; Start 10/22/18 at 00:00 Loratadine (Claritin) 10 mg DAILY PO Last administered on 10/30/18 09:27; Admin Dose 10 MG; Start 10/22/18 at 09:00 Magnesium Hydroxide (Milk Of Mag) 30 ml DAILY PO Last administered on 10/24/18 08:42; Admin Dose 30 ML; Start 10/22/18 at 09:00 Oxycodone HCl (Oxycontin) 20 mg Q12 PO Last administered on 10/30/18 09:32; Admin Dose 20 MG; Start 10/22/18 at 09:00 Pantoprazole (Protonix Tab) 40 mg AC BREAKFAST PO Last administered on 10/30/18 06:36; Admin Dose 40 MG; Start 10/22/18 at 07:25 Polyethylene Glycol (Miralax) 17 gm DAILY PO Last administered on 10/30/18 09:29; Admin Dose 17 GM; Start 10/22/18 at 09:00 Simethicone (Mylicon) 80 mg Q8H PO Last administered on 10/30/18 09:26; Admin Dose 80 MG; Start 10/21/18 at 23:30 Spironolactone (Aldactone) 50 mg DAILY PO Last administered on 10/30/18 09:28; Admin Dose 50 MG; Start 10/22/18 at 09:00 Zolpidem Tartrate (Ambien) 10 mg HS PRN PO INSOMNIA Last administered on 10/22/18 21:20; Admin Dose 10 MG; Start 10/21/18 at 23:30 Morphine Sulfate (morphine) 2 mg Q4H PRN IV SEVERE PAIN LEVEL 7-10 Last administered on 10/23/18 14:15; Admin Dose 2 MG; Start 10/22/18 at 01:30 Potassium Chloride (Klor-Con 20) 20 meq BID PO Last administered on 10/30/18 09:26; Admin Dose 20 MEQ; Start 10/22/18 at 13:00 Furosemide (Lasix) 40 mg BID DIURETICS PO Last administered on 10/30/18 06:38; Admin Dose 40 MG; Start 10/26/18 at 06:00 Phenol (Cepastat Lozenge) 1 lozenge Q1H PRN MT sore throat Last administered on 10/29/18 04:49; Admin Dose 1 LOZENGE; Start 10/27/18 at 21:30 Guaifenesin/ Codeine Phosphate (Robitussin Ac Liquid Cup) 10 ml Q8 PRN PO cough Last administered on 10/30/18 09:32; Admin Dose 10 ML; Start 10/27/18 at 21:30 Acetazolamide (Diamox) 250 mg BID PO Last administered on 10/30/18 09:26; Admin Dose 250 MG; Start 10/29/18 at 09:00 Fluticasone Propionate (Flonase 0.05% Nasal) 1 spray BID NASAL Last adm inistered on 10/30/18 09:28; Admin Dose 1 SPRAY; Start 10/29/18 at 21:00 Budesonide (Pulmicort (Neb)) 0.5 mg BID RESP THERAPY HHN Last administered on 10/30/18 09:30; Admin Dose 0.5 MG; Start 10/30/18 at 09:00 KAMILA TERESA October 30, 2018 16:01
[2018-10-30] MEDS ORDERED: FUROSEMIDE 40 MG INJ IV SCH (18:00)
[2018-10-30 19:40] VITALS: BP 96/59; PULSE 82; RESP 18
--- NOTE | 2018-10-30 20:59 | CONS ---
Assessment/Plan Assessment/Plan Hospital Course (Demo Recall) METASTATIC BREAST CANCER WITH PRIMARY ADENOCARCINOMA IN the left breast. MULTIPLE BONY METS, PULMONARY METS, LIVER METS CHEMO ON HOLD PT HAS A VERY GOOD RESPONSE TO CHEMO AND AI CONT AI FOR NOW CT ABD FOR RESTAGING 08.27.18- noted , stable Leukopenia- post chemo, IMPROVING post NEUPOGEN monitor closely post Neutropenia with occasional fever and chills. - resolved Anemia chronic disease SOB PLEURAL EFFUSIONS, NEG CYTOLOGY POST thoracentesis Fluid overload diuretic cardiology F-UP Severe pain in the interscapular and lumbar sacral area most probably metastatic lesion possible femoral fracture. pathologic fracture of T9 with 60% of loss of height. Bony pain with multiple bony mets post XRT will d/w dr Ocampo Obesity. Weight loss 60 pounds during the last 2 years PMS. Myopia. Anxiety disorder. Claustrophobia. Posttraumatic stress disorder. Pain in the left forearm with a history of fracture of ulna and radius. Tachycardia Hypoxemia at night marginal improved after 2 L of nasal cannula oxygen. Deconditioning Pain syndrome. Today the most painful zone is in the right hip area. X-ray did not show any fractures. Hyponatremia- resolved Hypoalbuminemia Right sided cp after catheter insertion and correction less discomfort. Decreased edema both lower extremities with hypotension-improving Swelling of the left forearm-persist. Consultation Date/Type/Reason Admit Date/Time October 21, 2018 at 17:39 Initial Consult Date 10/21/18 Type of Consult [facility] Requesting Provider: RUSS JEROME MD Date/Time of Note DATE: 10/30/18 TIME: 20:58 24 HR Interval Summary Free Text/Dictation urinary output has improved. Her swelling is improved. No other events noted. Exam/Review of Systems Exam Vitals Vital Signs Date Temp Pulse Resp B/P (MAP) Pulse Ox O2 O2 Flow FiO2 Time Delivery Rate 10/30/18 88 18 94 Nasal 2.0 17:02 Cannula 10/30/18 98.5 106/71 15:54 (83) 10/29/18 21 23:19 Intake and Output 10/29/18 10/29/18 10/30/18 1414:59 22:59 06:59 IntakeIntake Total 200 ml 400 ml OutputOutput Total 150 ml 350 ml BalanceBalance 200 ml 250 ml -350 ml Exam HEENT: Head is normocephalic. NECK: Supple. HEART: Regular rate. LUNGS: Show diminished breath sounds at the base. ABDOMEN: Soft, nontender to palpation without rebound or guarding. EXTREMITIES: Negative for clubbing, cyanosis. Positive edema, improving. DERMATOLOGIC: No rashes. MUSCULOSKELETAL: No joint effusion. NEUROLOGIC: No change in exam. Results Result Diagram: 10/30/18 0456 10/30/18 0456 Results 24hrs Laboratory Tests Test 10/30/18 04:56 White Blood Count 2.5 L Red Blood Count 2.91 L Hemoglobin 9.5 L Hematocrit 29.7 L Mean Corpuscular Volume 102.1 H Mean Corpuscular Hemoglobin 32.6 Mean Corpuscular Hemoglobin Concent 32.0 Red Cell Distribution Width 16.5 H Platelet Count 153 # Mean Platelet Volume 9.1 Immature Granulocytes % 0.000 L Neutrophils % 32.0 L Lymphocytes % 46.2 Monocytes % 20.2 H Eosinophils % 0.8 Basophils % 0.8 Nucleated Red Blood Cells % 0.0 Immature Granulocytes # 0.000 Neutrophils # 0.8 L Lymphocytes # 1.1 Monocytes # 0.5 Eosinophils # 0.0 Basophils # 0.0 Nucleated Red Blood Cells # 0.0 Sodium Level 136 Potassium Level 4.1 Chloride Level 100 Carbon Dioxide Level 28 Anion Gap 8 Blood Urea Nitrogen 24 H Creatinine 0.91 Est Glomerular Filtrat Rate mL/min > 60 Glucose Level 102 Calcium Level 8.8 Phosphorus Level 5.0 H Magnesium Level 2.0 Total Bilirubin 0.5 Direct Bilirubin 0.00 Indirect Bilirubin 0.5 Aspartate Amino Transf (AST/SGOT) 33 Alanine Aminotransferase (ALT/SGPT) 25 Alkaline Phosphatase 66 Total Protein 6.2 Albumin 3.4 Globulin 2.80 Albumin/Globulin Ratio 1.21 Medications Medication Current Medications Acetaminophen (Tylenol Tab) 650 mg Q4H PRN PO PAIN LEVEL 1-10/10 Last administered on 10/29/18at 17:15; Admin Dose 650 MG; Start 10/21/18 at 23:30 Anastrozole (Arimidex) 1 mg DAILY PO Last administered on 10/30/18at 09:28; Admin Dose 1 MG; Start 10/22/18 at 09:00 Benazepril HCl (Lotensin) 5 mg DAILY PO Last administered on 10/30/18at 09:27; Admin Dose 5 MG; Start 10/22/18 at 09:00 Bisacodyl (Dulcolax Supp) 10 mg Q8 DE Last administered on 10/29/18 05:38; Admin Dose 10 MG; Start 10/22/18 at 06:00 Carvedilol (Coreg) 3.125 mg BID PO Last administered on 10/30/18 09:27; Admin Dose 3.125 MG; Start 10/22/18 at 09:00 Docusate Sodium (Colace) 100 mg BID PO Last administered on 10/30/18 20:34; Admin Dose 100 MG; Start 10/22/18 at 09:00 Escitalopram Oxalate (Lexapro) 10 mg DAILY PO Last administered on 10/30/18 09:26; Admin Dose 10 MG; Start 10/22/18 at 09:00 Albuterol/ Ipratropium (Duoneb) 3 ml Q8H RESP THERAPY HHN Last administered on 10/30/18 17:02; Admin Dose 3 ML; Start 10/22/18 at 00:00 Loratadine (Claritin) 10 mg DAILY PO Last administered on 10/30/18 09:27; Admin Dose 10 MG; Start 10/22/18 at 09:00 Magnesium Hydroxide (Milk Of Mag) 30 ml DAILY PO Last administered on 10/24/18 08:42; Admin Dose 30 ML; Start 10/22/18 at 09:00 Oxycodone HCl (Oxycontin) 20 mg Q12 PO Last administered on 10/30/18 20:36; Admin Dose 20 MG; Start 10/22/18 at 09:00 Pantoprazole (Protonix Tab) 40 mg AC BREAKFAST PO Last administered on 10/30/18 06:36; Admin Dose 40 MG; Start 10/22/18 at 07:25 Polyethylene Glycol (Miralax) 17 gm DAILY PO Last administered on 10/30/18 09:29; Admin Dose 17 GM; Start 10/22/18 at 09:00 Simethicone (Mylicon) 80 mg Q8H PO Last administered on 10/30/18 09:26; Admin Dose 80 MG; Start 10/21/18 at 23:30 Spironolactone (Aldactone) 50 mg DAILY PO Last administered on 10/30/18 09:28; Admin Dose 50 MG; Start 10/22/18 at 09:00 Zolpidem Tartrate (Ambien) 10 mg HS PRN PO INSOMNIA Last administered on 10/22/18 21:20; Admin Dose 10 MG; Start 10/21/18 at 23:30 Morphine Sulfate (morphine) 2 mg Q4H PRN IV SEVERE PAIN LEVEL 7-10 Last administered on 10/23/18 14:15; Admin Dose 2 MG; Start 10/22/18 at 01:30 Potassium Chloride (Klor-Con 20) 20 meq BID PO Last administered on 10/30/18 20:36; Admin Dose 20 MEQ; Start 10/22/18 at 13:00 Phenol (Cepastat Lozenge) 1 lozenge Q1H PRN MT sore throat Last administered on 10/29/18 04:49; Admin Dose 1 LOZENGE; Start 10/27/18 at 21:30 Guaifenesin/ Codeine Phosphate (Robitussin Ac Liquid Cup) 10 ml Q8 PRN PO cough Last administered on 10/30/18 19:23; Admin Dose 10 ML; Start 10/27/18 at 21:30 Acetazolamide (Diamox) 250 mg BID PO Last administered on 10/30/18 20:34; Admin Dose 250 MG; Start 10/29/18 at 09:00 Fluticasone Propionate (Flonase 0.05% Nasal) 1 spray BID NASAL Last administered on 10/30/18 20:34; Admin Dose 1 SPRAY; Start 10/29/18 at 21:00 Budesonide (Pulmicort (Neb)) 0.5 mg BID RESP THERAPY HHN Last administered on 10/30/18 09:30; Admin Dose 0.5 MG; Start 10/30/18 at 09:00 Furosemide (Lasix) 40 mg BID DIURETICS PO Last administered on 10/30/18 19:23; Admin Dose 40 MG; Start 10/30/18 at 18:00 DES DUNAWAY MD October 30, 2018 20:59
[2018-10-31 02:25] VITALS: BP 106/58; PULSE 79; RESP 18
[2018-10-31] MEDS: PANTOPRAZOLE (EC) 40 MG TAB PO SCH (05:57)
[2018-10-31] MEDS: FUROSEMIDE 40 MG TAB PO SCH ×2 (06:00→18:30)
[2018-10-31] MEDS: BISACODYL 10 MG SUPP PR SCH ×4 (06:00→22:00)
[2018-10-31] MEDS: ALBUTEROL/IPRATROPIUM (NEB) 3 ML AMP HHN SCH ×3 (08:00→17:29)
[2018-10-31] MEDS: oxyCODONE (CR) 20 MG TAB [oxyCONTIN] PO SCH ×2 (08:38→21:21)
[2018-10-31 08:59] VITALS: BP 97/57; PULSE 86; RESP 18
[2018-10-31] MEDS: BUDESONIDE (NEB) 0.5MG/2ML AMP HHN SCH ×2 (09:00→19:59)
[2018-10-31] MEDS ORDERED: METOLAZONE 5 MG TAB PO ONE (09:00)
[2018-10-31] MEDS: BENAZEPRIL 5 MG TAB PO SCH (09:00)
[2018-10-31] MEDS ORDERED: LIDOCAINE 1% (MPF) 5 ML VIAL ONE (09:20)
[2018-10-31 09:30] VITALS: BP 95/60; PULSE 86
--- NOTE | 2018-10-31 09:34 | PN ---
DATE: 10/31/2018 SUBJECTIVE: The patient states that she had minimal urinary output overnight. No hemoptysis, no hem atemesis, no hematochezia. OBJECTIVE: VITAL SIGNS: Blood pressure is 106/58, respirations 18, pulse 79, temperature 98.6. HEENT: Head is normocephalic. NECK: Supple. HEART: Regular rate. LUNGS: Show diminished breath sounds at the base. ABDOMEN: Soft, nontender to palpation without rebound or guarding. EXTREMITIES: Negative for clubbing, cyanosis. Positive edema. DERMATOLOGIC: No rashes. MUSCULOSKELETAL: No joint effusion. NEUROLOGIC: No change in exam. MEDICATIONS: The patient's medications have been reviewed. LABORATORY DATA: Reviewed. ASSESSMENT AND PLAN: 1. Acute hypoxemic respiratory failure secondary to pleural effusion, improved. 2. Volume overload. Etiology is multifactorial secondary to diastolic heart failure, questionable p ortal hypertension, questionable lymphogenic spread. The patient is on loop diuretics, have been alt ernating between Diamox and metolazone to help augment diuresis. The patient will be placed on metol azone today. Diamox will be discontinued as alkalosis has improved. Continue Aldactone. Monitor el ectrolytes and renal function closely. 3. Nonoliguric acute kidney injury with previously normal baseline creatinine. Etiology is secondar y to diuretics. Renal function is improved. Continue to monitor. 4. Alkalosis, improved. We will discontinue Diamox. 5. Mineral bone disorder, monitor calcium and phosphorus levels. 6. Breast cancer with metastasis to the liver and spine. Continue to monitor. 7. Hip fracture, status post arthroplasty. 8. Pleural effusion, status post thoracentesis. 9. Chronic pain syndrome. Continue current pain regimen. Dictated By: ANDRÉS TATUM DO NR/NTS Conf#: [id number] DID#: [id number] CC: RUSS JEROME MD;*End*
--- NOTE | 2018-10-31 09:48 | PN ---
Date/Time of Note Date/Time of Note DATE: 10/31/18 TIME: 09:46 Assessment/Plan VTE Prophylaxis Risk score (from Ns)>0 risk: 8 SCD applied (from Ns): No SCD contraindicated: other Pharmacological prophylaxis: LMWH Lines/Catheters IV C[facility]ter Type [facility]from [facility] [place] [employer] line still needed: No Urinary Cath still in place: No Reason Cath still needed: urinary retention Assessment/Plan Assessment/Plan 1. PRIMARY ADENOCARCINOMA of the left breast. MULTIPLE BONY METS, PULMONARY METS;LIVER METS CHEMO ON HOLD; PT HAS A VERY GOOD RESPONSE TO CHEMO AND AI 2. Severe pain in the interscapular and lumbar sacral area most probably metastatic lesion possible femoral fracture. pathologic fracture of T9 with 60% of loss of height. Neurosurgical f/u. 3. Obesity. 4. Weight loss 60 pounds during the last 2 years by diet 5. PMS. 6. Myopia. 7. Anemia chronic disease with a drop of her hematocrit to 27; Latest results 28. Will recheck tomorrow;Leukopenia.Thrombocytopenia; 8. Anxiety disorder. Claustrophobia. Increase Ativan to 1 mg every 8 as needed at Lexapro 10 mg daily. 9. Posttraumatic stress disorder. 10. Pain in the left forearm with a history of fracture of ulna and radius. 11. Tachycardia 12. Hypoxemia at night marginal improved after 2 L of nasal cannula oxygen. 13. Deconditioning 14. 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 MRI: 09/28/18:diffuse osseous metastatic disease with multiple pathologic compression fractures at least involving the T4, T5, T7, T9 and T11 levels. There is likely mild cortical breakthrough at several levels resulting in mild central canal narrowing. No gross evidence of cord compression is seen.. 15. Pain syndrome. Today the most painful zone is in the right hip area. 16. Hyponatremia-corrected; hypokalemia now hyperkalemic 5.2 hold potassium p.o. today and hold Aldactone today.Recheck and sodium chloride daily with the dose to 4 mg today 17. Leucopenia-improved. 18. Neutropenia with occasional fever and chills. Last chemotherapy 5 days ago. 19. Hypoalbuminemia. 20.Right sided cp after catheter insertion and correction less discomfort. 21. Decreased edema both lower extremities with [id number] with Pleural and Pericardial effusion. 22. pain syndrome 23.bilateral pleural effusions ; s/p left thoracentesis, During the procedure the probe of the u/s was placed to the right side of the chest which showed only minimal amount of liquid on the right pleural cavity. Reaccumulation of the pleural fluid. Plan to tap from the right side tomorrow a.m. 24. Systolic over diastolic congestive heart failure with a right more than left lower extremity swelling with no DVT in latest venous Doppler. 25. Swelling of the left forearm-persist. Cellulitis of the left forearm with increased edema anteriorly.-Today it is less edematous 26. Pathologic fracture of the right hip;s/p hemiarthroplasty of right hip . 27. Dizziness 28. Chills. 29. Memory impairment. 30. Upper respiratory infection pharyngitis with dry cough. 31. Decreased voice with wheezing. Result Diagram: 10/30/1845510/30/18455 Subjective 24 Hr Interval Summary Free Text/Dictation Status post thoracentesis with 750 cc of fluid removal from left pleural cavity albumin level culture sensitivity and cytology tests. Talk with the RN in the radiology to add the tests. Constitutional: improved, chills, diaphoresis, poor po, requiring O2, other (Much better breathing after thoracentesis with no pain.); No no complaints, No disoriented, No febrile, No requiring IVF Eyes: No no complaints, No pain, No discharge, No redness, No visual change, No other ENT: congestion, dysphagia; No no complaints, No bleeding, No pain, No discharge, No sore throat, No other Respiratory: pain, cough, pleuritic pain, shortness of breath, sputum (More cough with worsening of chest pain if no cough no chest pain no wheezing. The patient feels more sputum production but she is unable to expectorate.), wheezing, other; No no complaints Cardiovascular: chest pain, edema; No no complaints, No lightheadedness, No orthopenea, No palpitations, No paroxysmal nocturnal dyspnea, No other Gastrointestinal: pain, constipation, decreased appetite, flatus, nausea, passing stool; No no complaints, No blood, No diarrhea, No vomiting, No other Genitourinary: dysuria, flank pain; No no complaints, No bleeding, No discharge, No hematuria, No other Musculoskeletal: back pain, bone/joint pain, neck pain; No no complaints, No restricted range of motion, No swelling, No other Skin: pruritis, rash; No no complaints, No bruising, No erythema, No laceration, No skin lesions, No other Neurologic: dizziness; No no complaints, No confusion, No focal-weakness, No headache, No syncope, No seizure, No other Endocrine: polyuria, polydypsia, dry skin; No no complaints, No temp intolerance, No other Psychological: anxiety, confusion (While in the room patient was with closed eyes in no distress but fingers were going over the screen of [employer] telephone computer. I waited for 2 to 3 minutes and definitely she was with close tie but making some up and down movement of the screen of the telephone. Discussed with the nurse who stated that she came back from thoracentesis and she was coughing more than usual second visit to the room. Revealed that she is open and she is talking with relatives and feels better as she is described it but the continuing cough with no hemoptysis or sputum production. She mentions that she is swallowing.), depression; No no complaints, No nl mood/affect, No suicidal, No other Immunologic: No no complaints, No immunodeficiency, No pruritis, No rhinitis, No urticaria, No other Exam/Review of Systems Exam Vitals Vital Signs Date Temp Pulse Resp B/P (MAP) Pulse Ox O2 O2 Flow FiO2 Time Delivery Rate 10/31/18 86 95/60 (72) 94 09:30 10/31/18 98.0 18 08:59 10/31/18 Nasal 2.0 08:20 Cannula 10/31/18 21 00:00 Intake and Output 10/30/18 10/30/18 10/31/18 1515:00 23:00 07:00 IntakeIntake Total 700 ml 600 ml OutputOutput Total 300 ml BalanceBalance 400 ml 600 ml Constitutional: alert, oriented, well developed, distress, frail, obese Psych: anxiety; No no complaints, No nl mood/affect, No confusion, No depression, No suicidal, No other Head: normocephalic, atraumatic; No lacerations, No hematomas, No other Eyes: EOMI, nl lids, PERRL; No nl conjunctiva, No nl sclera, No icteric, No fundi, disc, No other ENMT: other (Congested throat with erythematous soft palate with no pus with increased secretions positive for more than usual nasal secretions.); No nl external ears & nose, No nl lips & teeth, No nl nasal mucosa & septum, No mucosa pink and moist, No intubated, No tympanic membranes Neck: jvd, bruits, thyromegaly, nuchal rigidity; No supple, No non-tender, No masses, No other Respiratory: congested cough, crackles/rales, diminished breath sounds (Left side below the GE 4 5 level more prominent decrease of her breathing sounds comparing with the right side.), wheezing; No clear to auscultation, No normal air movement, No intercostal retraction, No labored breathing, No respirations, No tactile fremitus, No other Cardiovascular: regular rate and rhythm, bruits, edema, systolic murmur; No nl pulses, No diastolic murmur, No gallop, No irregular rhythm, No jugular venous distention (JVD), No murmurs/extra sounds, No rub, No S3, No S4, No other Gastrointestinal: soft, nl liver, spleen, bowel sounds, distended; No non-tender, No ascites, No firm, No hepatomegaly, No mass, No rebound or guarding, No splenomegaly, No surgical scars, No tender, No other Genitourinary - Female: nl adnexae, nl external genitalia; No CMT, No CVA tenderness, No uterus, No other Musculoskeletal: joint tenderness, muscle tone, muscle weakness; No nl extremities to inspection, No nl gait and stance, No range of motion, No spine non-tender, No swelling, No other Extremities: No normal pulses, No calf tenderness, No cyanosis, No clubbing, No edema, No pitting pedal edema, No palpable cord, No tenderness, No other 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: [employer] 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; No nl mental status, No nl speech, No nl strength, No confused, No DTR's symmetric, No focal weakness, No lethargic, No numbness, No reflexes, No unresponsive, No other Skin: nl turgor; No rash or lesions, No diaphoresis, No ecchymosis, No laceration, No puncture, No other Lymph: No nl lymph nodes, No enlarged, No nontender, No other Medications Medication Current Medications Acetaminophen (Tylenol Tab) 650 mg Q4H PRN PO PAIN LEVEL 1-10/10 Last administered on 5/14/19at 17:15; Admin Dose 650 MG; Start 10/21/18 at 23:30 Anastrozole (Arimidex) 1 mg DAILY PO Last administered on 10/30/18 09:28; Admin Dose 1 MG; Start 10/22/18 at 09:00 Benazepril HCl (Lotensin) 5 mg DAILY PO Last administered on 10/30/18 09:27; Admin Dose 5 MG; Start 10/22/18 at 09:00 Bisacodyl (Dulcolax Supp) 10 mg Q8 TN Last administered on 10/29/18 05:38; Admin Dose 10 MG; Start 10/22/18 at 06:00 Carvedilol (Coreg) 3.125 mg BID PO Last administered on 10/30/18 09:27; Admin Dose 3.125 MG; Start 10/22/18 at 09:00 Docusate Sodium (Colace) 100 mg BID PO Last administered on 10/30/18 20:34; Admin Dose 100 MG; Start 10/22/18 at 09:00 Escitalopram Oxalate (Lexapro) 10 mg DAILY PO Last administered on 10/30/18 09:26; Admin Dose 10 MG; Start 10/22/18 at 09:00 Albuterol/ Ipratropium (Duoneb) 3 ml Q8H RESP THERAPY HHN Last administered on 10/31/18 00:00; Admin Dose 3 ML; Start 10/22/18 at 00:00 Loratadine (Claritin) 10 mg DAILY PO Last administered on 10/30/18 09:27; Admin Dose 10 MG; Start 10/22/18 at 09:00 Magnesium Hydroxide (Milk Of Mag) 30 ml DAILY PO Last administered on 10/24/18 08:42; Admin Dose 30 ML; Start 10/22/18 at 09:00 Oxycodone HCl (Oxycontin) 20 mg Q12 PO Last administered on 10/31/18 08:38; Admin Dose 20 MG; Start 10/22/18 at 09:00 Pantoprazole (Protonix Tab) 40 mg AC BREAKFAST PO Last administered on 10/31/18 05:57; Admin Dose 40 MG; Start 10/22/18 at 07:25 Polyethylene Glycol (Miralax) 17 gm DAILY PO Last administered on 10/30/18 09:29; Admin Dose 17 GM; Start 10/22/18 at 09:00 Simethicone (Mylicon) 80 mg Q8H PO Last administered on 10/30/18 23:13; Admin Dose 80 MG; Start 10/21/18 at 23:30 Spironolactone (Aldactone) 50 mg DAILY PO Last administered on 10/30/18 09:28; Admin Dose 50 MG; Start 10/22/18 at 09:00 Zolpidem Tartrate (Ambien) 10 mg HS PRN PO INSOMNIA Last administered on 10/22/18 21:20; Admin Dose 10 MG; Start 10/21/18 at 23:30 Morphine Sulfate (morphine) 2 mg Q4H PRN IV SEVERE PAIN LEVEL 7-10 Last administered on 10/23/18 14:15; Admin Dose 2 MG; Start 10/22/18 at 01:30 Potassium Chloride (Klor-Con 20) 20 meq BID PO Last administered on 10/30/18 20:36; Admin Dose 20 MEQ; Start 10/22/18 at 13:00 Phenol (Cepastat Lozenge) 1 lozenge Q1H PRN MT sore throat Last administered on 10/29/18 04:49; Admin Dose 1 LOZENGE; Start 10/27/18 at 21:30 Guaifenesin/ Codeine Phosphate (Robitussin Ac Liquid Cup) 10 ml Q8 PRN PO cough Last administered on 10/30/18 19:23; Admin Dose 10 ML; Start 10/27/18 at 21:30 Fluticasone Propionate (Flonase 0.05% Nasal) 1 spray BID NASAL Last administered on 10/30/18 20:34; Admin Dose 1 SPRAY; Start 10/29/18 at 21:00 Budesonide (Pulmicort (Neb)) 0.5 mg BID RESP THERAPY HHN Last administered on 10/30/18 21:03; Admin Dose 0.5 MG; Start 10/30/18 at 09:00 Furosemide (Lasix) 40 mg BID DIURETICS PO Last administered on 10/31/18 06:00; Admin Dose 40 MG; Start 10/30/18 at 18:00 RUSS JEROME MD October 31, 2018 09:48
[2018-10-31] MEDS: ESCITALOPRAM 10 MG TAB PO SCH (10:14)
[2018-10-31] MEDS: LORATADINE 10 MG TAB PO SCH (10:14)
[2018-10-31] MEDS: POTASSIUM CHLORIDE (SR) 20 MEQ TAB PO SCH ×2 (10:14→21:21)
[2018-10-31] MEDS: SPIRONOLACTONE 50 MG TAB PO SCH (10:15)
[2018-10-31] MEDS: DOCUSATE SODIUM 100 MG CAP PO SCH ×2 (10:15→21:21)
[2018-10-31] MEDS: MAGNESIUM HYDROXIDE 30ML CUP PO SCH (10:16)
[2018-10-31] MEDS: ANASTROZOLE 1 MG TAB PO SCH (10:16)
[2018-10-31] MEDS: POLYETHYLENE GLYCOL 17 GM PACKET PO SCH (10:16)
[2018-10-31] MEDS: FLUTICASONE 0.05% 16 GM NAS SPRAY NASAL SCH ×2 (10:16→21:20)
[2018-10-31] MEDS: GUAIFENESIN/CODEINE 5ML CUP PO PRN ×2 (10:51→18:34)
--- NOTE | 2018-10-31 13:32 | CONS ---
Assessment/Plan Assessment/Plan Hospital Course (Demo Recall) IMPRESSION: 1. Congestive heart failure exacerbation would be diastolic, acute on chronic by most recent echo.-now s/p echo this admit with EF 60/small effusion 2. Abnormal electrocardiogram with low voltage, rule out pericardial effusion. 3. Hypertension-currently borderline hypotension 4. Metastatic breast carcinoma. 5. History of pathologic fractures of the leg, status post open reduction and internal fixation. 6. Anemia. 7. Increased BNP consistent with patient's congestive heart failure. 8. Pericardial effusion-small by echo Recc: -Tele -Continue lasix/aldactone and considering adding standing metolazone for increased efficacy -Consider additional IV albumin doses -Continue current coreg and benazepril and follow BP clsoely -follow K clsoely Consultation Date/Type/Reason Admit Date/Time October 21, 2018 at 17:39 Initial Consult Date 10/21/18 Type of Consult Cardiology Reason for Consultation CHF Requesting Provider: RUSS JEROME MD Date/Time of Note DATE: 10/31/18 TIME: 13:31 Exam/Review of Systems Vital Signs Vitals Vital Signs Date Temp Pulse Resp B/P (MAP) Pulse Ox O2 O2 Flow FiO2 Time Delivery Rate 10/31/18 86 95/60 (72) 94 09:30 10/31/18 98.0 18 08:59 10/31/18 Nasal 2.0 08:20 Cannula 10/31/18 21 00:00 Intake and Output 10/30/18 10/30/18 10/31/18 1515:00 23:00 07:00 IntakeIntake Total 700 ml 600 ml OutputOutput Total 300 ml BalanceBalance 400 ml 600 ml Exam Exam Review of Systems: CONSTITUTIONAL: No fevers, chills. PULMONARY: ongoing sob CARDIOVASCULAR: No chest pain/palpitations GASTROINTESTINAL: No nausea/vomiting. GENITOURINARY: No hematuria/dysuria. MUSCULOSKELETAL: No myagias/arthalgias. PSYCHIATRIC: The patient denies depression. NEUROLOGIC: No weakness Constitutional: alert Psych: no complaints Head: normocephalic ENMT: mucosa pink and moist Neck: supple, jvd (9-10 cm water) Respiratory: diminished breath sounds (at bases/B) Cardiovascular: regular rate and rhythm Gastrointestinal: soft, non-tender Musculoskeletal: muscle tone (normal) Extremities: pitting pedal edema (bilateral) 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: other (No focal deficits) Labs Result Diagram: 10/30/18 0456 10/30/18 0456 Medications Medications Current Medications Acetaminophen (Tylenol Tab) 650 mg Q4H PRN PO PAIN LEVEL 1-03/27 Last administered on 10/29/18 17:15; Admin Dose 650 MG; Start 10/21/18 at 23:30 Anastrozole (Arimidex) 1 mg DAILY PO Last administered on 10/31/18 10:16; Admin Dose 1 MG; Start 10/22/18 at 09:00 Benazepril HCl (Lotensin) 5 mg DAILY PO Last administered on 10/30/18 09:27; Admin Dose 5 MG; Start 10/22/18 at 09:00 Bisacodyl (Dulcolax Supp) 10 mg Q8 AL Last administered on 10/29/18 05:38; Admin Dose 10 MG; Start 10/22/18 at 06:00 Carvedilol (Coreg) 3.125 mg BID PO Last administered on 10/30/18 09:27; Admin Dose 3.125 MG; Start 10/22/18 at 09:00 Docusate Sodium (Colace) 100 mg BID PO Last administered on 10/31/18 10:15; Ad min Dose 100 MG; Start 10/22/18 at 09:00 Escitalopram Oxalate (Lexapro) 10 mg DAILY PO Last administered on 10/31/18 10:14; Admin Dose 10 MG; Start 10/22/18 at 09:00 Albuterol/ Ipratropium (Duoneb) 3 ml Q8H RESP THERAPY HHN Last administered on 10/31/18 00:00; Admin Dose 3 ML; Start 10/22/18 at 00:00 Loratadine (Claritin) 10 mg DAILY PO Last administered on 10/31/18 10:14; Admin Dose 10 MG; Start 10/22/18 at 09:00 Magnesium Hydroxide (Milk Of Mag) 30 ml DAILY PO Last administered on 10/31/18 10:16; Admin Dose 30 ML; Start 10/22/18 at 09:00 Oxycodone HCl (Oxycontin) 20 mg Q12 PO Last administered on 10/31/18 08:38; Admin Dose 20 MG; Start 10/22/18 at 09:00 Pantoprazole (Protonix Tab) 40 mg AC BREAKFAST PO Last administered on 10/31/18 05:57; Admin Dose 40 MG; Start 10/22/18 at 07:25 Polyethylene Glycol (Miralax) 17 gm DAILY PO Last administered on 10/31/18 10:16; Admin Dose 17 GM; Start 10/22/18 at 09:00 Simethicone (Mylicon) 80 mg Q8H PO Last administered on 10/31/18 10:14; Admin Dose 80 MG; Start 10/21/18 at 23:30 Spironolactone (Aldactone) 50 mg DAILY PO Last administered on 10/31/18 10:15; Admin Dose 50 MG; Start 10/22/18 at 09:00 Zolpidem Tartrate (Ambien) 10 mg HS PRN PO INSOMNIA Last administered on 10/22/18 21:20; Admin Dose 10 MG; Start 10/21/18 at 23:30 Morphine Sulfate (morphine) 2 mg Q4H PRN IV SEVERE PAIN LEVEL 7-10 Last administered on 10/23/18 14:15; Admin Dose 2 MG; Start 10/22/18 at 01:30 Potassium Chloride (Klor-Con 20) 20 meq BID PO Last administered on 10/31/18 10:14; Admin Dose 20 MEQ; Start 10/22/18 at 13:00 Phenol (Cepastat Lozenge) 1 lozenge Q1H PRN MT sore throat Last administered on 10/29/18 04:49; Admin Dose 1 LOZENGE; Start 10/27/18 at 21:30 Guaifenesin/ Codeine Phosphate (Robitussin Ac Liquid Cup) 10 ml Q8 PRN PO cough Last administered on 10/31/18 10:51; Admin Dose 10 ML; Start 10/27/18 at 21:30 Fluticasone Propionate (Flonase 0.05% Nasal) 1 spray BID NASAL Last administered on 10/31/18 10:16; Admin Dose 1 SPRAY; Start 10/29/18 at 21:00 Budesonide (Pulmicort (Neb)) 0.5 mg BID RESP THERAPY HHN Last administered on 10/30/18 21:03; Admin Dose 0.5 MG; Start 10/30/18 at 09:00 Furosemide (Lasix) 40 mg BID DIURETICS PO Last administered on 10/31/18at 06:00; Admin Dose 40 MG; Start 10/30/18 at 18:00 Oseltamivir Phosphate (Tamiflu) 150 mg BID PO ; Start 10/31/18 at 11:30; Stop 11/04/18 at 09:00 Azithromycin 500 mg/Sodium Chloride 250 ml @ 250 mls/hr NOW IVPB ; Start 10/31/18 at 11:30; Stop 11/02/18 at 09:00 KAMILA TERESA October 31, 2018 13:32
[2018-10-31] MEDS: OSELTAMIVIR 75 MG CAP PO SCH ×2 (13:49→21:22)
[2018-10-31 14:00] VITALS: BP 100/58; PULSE 88; RESP 18
[2018-10-31] MEDS: AZITHROMYCIN 500 MG in SOD CHLORIDE 0.9% 250 ML IVPB SCH (15:29)
[2018-10-31] MEDS: CEPASTAT LOZENGE MT PRN (18:34)
[2018-10-31 19:45] VITALS: BP 97/57; PULSE 80; RESP 20
[2018-10-31] MEDS ORDERED: METOLAZONE 2.5 MG TAB PO SCH (21:00)
--- NOTE | 2018-10-31 23:18 | CONS ---
Assessment/Plan Assessment/Plan Hospital Course (Demo Recall) METASTATIC BREAST CANCER WITH PRIMARY ADENOCARCINOMA IN the left breast. MULTIPLE BONY METS, PULMONARY METS, LIVER METS CHEMO ON HOLD PT HAS A VERY GOOD RESPONSE TO CHEMO AND AI CONT AI FOR NOW CT ABD FOR RESTAGING 08.27.18- noted , stable Leukopenia- post chemo, FLUCTUATING WITH RECENT WORSENING- post NEUPOGEN monitor closely post Neutropenia with occasional fever and chills. - resolved Anemia chronic disease SOB PLEURAL EFFUSIONS, NEG CYTOLOGY POST thoracentesis Fluid overload diuretic cardiology F-UP Severe pain in the interscapular and lumbar sacral area most probably metastatic lesion possible femoral fracture. pathologic fracture of T9 with 60% of loss of height. Bony pain with multiple bony mets post XRT will d/w dr Ocampo Obesity. Weight loss 60 pounds during the last 2 years PMS. Myopia. Anxiety disorder. Claustrophobia. Posttraumatic stress disorder. Pain in the left forearm with a history of fracture of ulna and radius. Tachycardia Hypoxemia at night marginal improved after 2 L of nasal cannula oxygen. Deconditioning Pain syndrome. Today the most painful zone is in the right hip area. X-ray did not show any fractures. Hyponatremia- resolved Hypoalbuminemia Right sided cp after catheter insertion and correction less discomfort. Decreased edema both lower extremities with hypotension-improving Swelling of the left forearm-persist. Consultation Date/Type/Reason Admit Date/Time October 21, 2018 at 17:39 Initial Consult Date 10/21/18 Type of Consult [facility] Requesting Provider: RUSS JEROME MD Date/Time of Note DATE: 10/31/18 TIME: 23:17 24 HR Interval Summary Free Text/Dictation all noted WBC- DOWN, NO FEVER Exam/Review of Systems Exam Vitals Vital Signs Date Temp Pulse Resp B/P (MAP) Pulse Ox O2 O2 Flow FiO2 Time Delivery Rate 10/31/18 80 18 95 Nasal 2.0 20:02 Cannula 10/31/18 27 20:02 10/31/18 98.9 97/57 (70) 19:45 Intake and Output 10/30/18 10/30/18 10/31/18 1414:59 22:59 06:59 IntakeIntake Total 700 ml 600 ml OutputOutput Total 300 ml BalanceBalance 400 ml 600 ml Exam HEENT: Head is normocephalic. NECK: Supple. HEART: Regular rate. LUNGS: Show diminished breath sounds at the base. ABDOMEN: Soft, nontender to palpation without rebound or guarding. EXTREMITIES: Negative for clubbing, cyanosis. Positive edema, improving. DERMATOLOGIC: No rashes. MUSCULOSKELETAL: No joint effusion. NEUROLOGIC: No change in exam. Results Result Diagram: 10/30/18 0456 10/30/186 Medications Medication Current Medications Acetaminophen (Tylenol Tab) 650 mg Q4H PRN PO PAIN LEVEL 1-10/10 Last administered on 10/29/18 17:15; Admin Dose 650 MG; Start 10/21/18 at 23:30 Anastrozole (Arimidex) 1 mg DAILY PO Last administered on 10/31/18 10:16; Admin Dose 1 MG; Start 10/22/18 at 09:00 Benazepril HCl (Lotensin) 5 mg DAILY PO Last administered on 10/30/18 09:27; Admin Dose 5 MG; Start 10/22/18 at 09:00 Bisacodyl (Dulcolax Supp) 10 mg Q8 MN Last administered on 10/31/18 16:42; Admin Dose 10 MG; Start 10/22/18 at 06:00 Carvedilol (Coreg) 3.125 mg BID PO Last administered on 10/30/18 09:27; Admin Dose 3.125 MG; Start 10/22/18 at 09:00 Docusate Sodium (Colace) 100 mg BID PO Last administered on 10/31/18 21:21; Admin Dose 100 MG; Start 10/22/18 at 09:00 Escitalopram Oxalate (Lexapro) 10 mg DAILY PO Last administered on 10/31/18 10:14; Admin Dose 10 MG; Start 10/22/18 at 09:00 Albuterol/ Ipratropium (Duoneb) 3 ml Q8H RESP THERAPY HHN Last administered on 10/31/18 00:00; Admin Dose 3 ML; Start 10/22/18 at 00:00 Loratadine (Claritin) 10 mg DAILY PO Last administered on 10/31/18 10:14; Admin Dose 10 MG; Start 10/22/18 at 09:00 Magnesium Hydroxide (Milk Of Mag) 30 ml DAILY PO Last administered on 10/31/18 10:16; Admin Dose 30 ML; Start 10/22/18 at 09:00 Oxycodone HCl (Oxycontin) 20 mg Q12 PO Last administered on 10/31/18 21:21; Admin Dose 20 MG; Start 10/22/18 at 09:00 Pantoprazole (Protonix Tab) 40 mg AC BREAKFAST PO Last administered on 10/31/18 05:57; Admin Dose 40 MG; Start 10/22/18 at 07:25 Polyethylene Glycol (Miralax) 17 gm DAILY PO Last administered on 10/31/18 10:16; Admin Dose 17 GM; Start 10/22/18 at 09:00 Simethicone (Mylicon) 80 mg Q8H PO Last administered on 10/31/18 10:14; Admin Dose 80 MG; Start 10/21/18 at 23:30 Spironolactone (Aldactone) 50 mg DAILY PO Last administered on 10/31/18 10:15; Admin Dose 50 MG; Start 10/22/18 at 09:00 Zolpidem Tartrate (Ambien) 10 mg HS PRN PO INSOMNIA Last administered on 10/22/18 21:20; Admin Dose 10 MG; Start 10/21/18 at 23:30 Morphine Sulfate (morphine) 2 mg Q4H PRN IV SEVERE PAIN LEVEL 7-10 Last admi nistered on 10/23/18 14:15; Admin Dose 2 MG; Start 10/22/18 at 01:30 Potassium Chloride (Klor-Con 20) 20 meq BID PO Last administered on 10/31/18 21:21; Admin Dose 20 MEQ; Start 10/22/18 at 13:00 Phenol (Cepastat Lozenge) 1 lozenge Q1H PRN MT sore throat Last administered on 10/31/18 18:34; Admin Dose 1 LOZENGE; Start 10/27/18 at 21:30 Guaifenesin/ Codeine Phosphate (Robitussin Ac Liquid Cup) 10 ml Q8 PRN PO cough Last administered on 10/31/18 18:34; Admin Dose 10 ML; Start 10/27/18 at 21:30 Fluticasone Propionate (Flonase 0.05% Nasal) 1 spray BID NASAL Last administered on 10/31/18 21:20; Admin Dose 1 SPRAY; Start 10/29/18 at 21:00 Budesonide (Pulmicort (Neb)) 0.5 mg BID RESP THERAPY HHN Last administered on 10/31/18 19:59; Admin Dose 0.5 MG; Start 10/30/18 at 09:00 Furosemide (Lasix) 40 mg BID DIURETICS PO Last administered on 10/31/18 18:30; Admin Dose 40 MG; Start 10/30/18 at 18:00 Oseltamivir Phosphate (Tamiflu) 150 mg BID PO Last administered on 10/31/18 21:22; Admin Dose 150 MG; Start 10/31/18 at 11:30; Stop 11/04/18 at 09:00 Azithromycin 500 mg/Sodium Chloride 250 ml @ 250 mls/hr NOW IVPB Last administered on 10/31/18 15:29; Admin Dose 250 MLS/HR; Start 10/31/18 at 11:30; Stop 11/02/18 at 09:00 Metolazone (Zaroxolyn) 2.5 mg BID@8030,1730 PO ; Start 11/01/18 at 05:30 DES DUNAWAY MD October 31, 2018 23:18
[2018-11-01] MEDS: ALBUTEROL/IPRATROPIUM (NEB) 3 ML AMP HHN SCH ×3 (00:44→16:10)
[2018-11-01 02:10] VITALS: BP 100/61; PULSE 86; RESP 20
[2018-11-01] MEDS: METOLAZONE 2.5 MG TAB PO SCH ×2 (05:41→17:53)
[2018-11-01] MEDS: BISACODYL 10 MG SUPP PR SCH ×3 (05:59→21:13)
[2018-11-01] MEDS: PANTOPRAZOLE (EC) 40 MG TAB PO SCH (06:20)
[2018-11-01] MEDS: FUROSEMIDE 40 MG TAB PO SCH (06:21)
--- NOTE | 2018-11-01 08:25 | PN ---
DATE: 11/01/2018 SUBJECTIVE: The patient is stable. She continues to have cough. The patient states urinary output has been marginal. OBJECTIVE: VITAL SIGNS: Blood pressure is 100/64, respirations 20, pulse 86, temperature 98.4. HEENT: Head is normocephalic. NECK: Supple. HEART: Regular rate. LUNGS: Show diminished breath sounds at the base. ABDOMEN: Soft, nontender to palpation without rebound or guarding. EXTREMITIES: Negative for clubbing, cyanosis, no edema. DERMATOLOGIC: No rashes. MUSCULOSKELETAL: No joint effusion. NEUROLOGIC: No change in exam. MEDICATIONS: Reviewed. LABORATORY DATA: Reviewed. ASSESSMENT AND PLAN: 1. Acute hypoxemic respiratory failure secondary to pleural effusion, improved. 2. Volume overload. Etiology is multifactorial secondary to diastolic heart failure, possible vishal l hypertension, questionable lymphogenic spread. The patient is currently on loop diuretics, metolaz one and Aldactone. Urinary output has been marginal. Plan is to change p.o. diuretics to IV for bet ter efficacy. Continue to monitor. 3. Nonoliguric acute kidney injury with previously normal baseline creatinine. Etiology is secondar y to hemodynamics. Renal function is improved. Continue to monitor. 4. Alkalosis, improved. The patient is status post Diamox. 5. Mineral bone disorder, monitor calcium and phosphorus levels. 6. Breast cancer with metastasis to the liver and spine. Continue to monitor. 7. Hip fracture, status post arthroplasty. 8. Pleural effusion, status post thoracentesis. 9. Chronic pain syndrome. Continue current pain regimen. Dictated By: ANDRÉS YO/NTS Conf#: [id number] DID#: [id number] CC: RUSS JEROME MD;*EndCC*
--- NOTE | 2018-11-01 08:50 | PN ---
Date/Time of Note Date/Time of Note DATE: 11/01/18 TIME: 08:47 Assessment/Plan VTE Prophylaxis Risk score (from Nsg)>0 risk: 8 SCD applied (from Nsg): Yes SCD contraindicated: other (on.) Pharmacological prophylaxis: LMWH Lines/Catheters IV Catheter Type (from Nrsg): Peripheral IV Central line still needed: Yes Urinary Cath still in place: No Reason Cath still needed: urinary retention Assessment/Plan Assessment/Plan 1. PRIMARY ADENOCARCINOMA of the left breast. MULTIPLE BONY METS, PULMONARY METS;LIVER METS CHEMO ON HOLD; PT HAS A VERY GOOD RESPONSE TO CHEMO AND AI 2. Severe pain in the interscapular and lumbar sacral area most probably metastatic lesion possible femoral fracture. pathologic fracture of T9 with 60% of loss of height. Neurosurgical f/u. 3. Obesity. 4. Weight loss 60 pounds during the last 2 years by diet 5. PMS. 6. Myopia. 7. Anemia chronic disease with a drop of her hematocrit to 27; Latest results 28. Will recheck tomorrow;Leukopenia.Thrombocytopenia; 8. Anxiety disorder. Claustrophobia. Increase Ativan to 1 mg every 8 as needed at Lexapro 10 mg daily. 9. Posttraumatic stress disorder. 10. Pain in the left forearm with a history of fracture of ulna and radius. 11. Tachycardia 12. Hypoxemia at night marginal improved after 2 L of nasal cannula oxygen. 13. Deconditioning 14. 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 MRI: 09/28/18:diffuse osseous metastatic disease with multiple pathologic compression fractures at least involving the T4, T5, T7, T9 and T11 levels. There is likely mild cortical breakthrough at several levels resulting in mild central canal narrowing. No gross evidence of cord compression is seen.. 15. Pain syndrome. Today the most painful zone is in the right hip area. 16. Hyponatremia-corrected; hypokalemia now hyperkalemic 5.2 hold potassium p.o. today and hold Aldactone today.Recheck and sodium chloride daily with the dose to 4 mg today 17. Leucopenia-improved. 18. Neutropenia with occasional fever and chills. Last chemotherapy 5 days ago. 19. Hypoalbuminemia. 20.Right sided cp after catheter insertion and correction less discomfort. 21. Decreased edema both lower extremities with [id number] with Pleural and Pericardial effusion. 22. pain syndrome 23.bilateral pleural effusions ; s/p left thoracentesis, During the procedure the probe of the u/s was placed to the right side of the chest which showed only minimal amount of liquid on the right pleural cavity. Reaccumulation of the pleural fluid. Plan to tap from the right side tomorrow a.m. 24. Systolic over diastolic congestive heart failure with a right more than left lower extremity swelling with no DVT in latest venous Doppler. 25. Swelling of the left forearm-persist. Cellulitis of the left forearm with increased edema anteriorly.-Today it is less edematous 26. Pathologic fracture of the right hip;s/p hemiarthroplasty of right hip . 27. Dizziness 28. Chills. 29. Memory impairment. 30. Upper respiratory infection pharyngitis with dry cough. 31. Decreased voice with wheezing. Result Diagram: 11/01/18 0422 11/01/18 0422 Results 24hrs Laboratory Tests Test 11/01/18 04:22 White Blood Count 3.2 #L Red Blood Count 2.98 L Hemoglobin 9.6 L Hematocrit 29.8 L Mean Corpuscular Volume 100.0 Mean Corpuscular Hemoglobin 32.2 Mean Corpuscular Hemoglobin Concent 32.2 Red Cell Distribution Width 16.1 H Platelet Count 155 Mean Platelet Volume 9.3 Immature Granulocytes % 0.000 L Neutrophils % 30.1 L Lymphocytes % 52.8 H Monocytes % 14.3 H Eosinophils % 1.9 Basophils % 0.9 Nucleated Red Blood Cells % 0.0 Immature Granulocytes # 0.000 Neutrophils # 1.0 L Lymphocytes # 1.7 Monocytes # 0.5 Eosinophils # 0.1 Basophils # 0.0 Nucleated Red Blood Cells # 0.0 Sodium Level 136 Potassium Level 3.9 Chloride Level 100 Carbon Dioxide Level 28 Anion Gap 8 Blood Urea Nitrogen 32 H Creatinine 1.00 Est Glomerular Filtrat Rate mL/min 57 L Glucose Level 110 Calcium Level 8.5 Phosphorus Level 5.2 H Magnesium Level 2.2 Subjective 24 Hr Interval Summary Free Text/Dictation Weakness. Cough decreased. Constitutional: improved, diaphoresis, poor po; No no complaints, No chills, No disoriented, No febrile, No requiring IVF, No requiring O2, No other Eyes: discharge; No no complaints, No pain, No redness, No visual change, No other ENT: congestion, discharge; No no complaints, No bleeding, No pain, No dysphagia, No sore throat, No other Respiratory: cough, pleuritic pain, shortness of breath; No no complaints, No pain, No sputum, No wheezing, No other Cardiovascular: chest pain, edema; No no complaints, No lightheadedness, No orthopenea, No palpitations, No paroxysmal nocturnal dyspnea, No other Gastrointestinal: constipation, decreased appetite, flatus; No no complaints, No pain, No blood, No diarrhea, No nausea, No passing stoo l, No vomiting, No other Genitourinary: dysuria; No no complaints, No bleeding, No discharge, No flank pain, No hematuria, No other Musculoskeletal: back pain, bone/joint pain, neck pain; No no complaints, No restricted range of motion, No swelling, No other Skin: No no complaints, No bruising, No erythema, No laceration, No pruritis, No rash, No skin lesions, No other Neurologic: dizziness, focal-weakness, headache; No no complaints, No confusion, No syncope, No seizure, No other Endocrine: No no complaints, No polyuria, No polydypsia, No dry skin, No temp intolerance, No other Lymphatic: No no complaints, No adenopathy, No tender nodes, No lymphadema, No other Psychological: anxiety; No no complaints, No nl mood/affect, No confusion, No depression, No suicidal, No other Exam/Review of Systems Exam Vitals Vital Signs Date Temp Pulse Resp B/P (MAP) Pulse Ox O2 O2 Flow FiO2 Time Delivery Rate 11/01/18 98.4 86 20 100/61 94 Room Air 02:10 (74) 11/01/18 2.0 00:45 10/31/18 27 20:02 Intake and Output 10/31/18 10/31/18 11/01/18 1515:00 23:00 07:00 IntakeIntake Total 250 ml 650 ml OutputOutput Total 750 ml BalanceBalance -750 ml 250 ml 650 ml Constitutional: alert, oriented, well developed, distress, frail Psych: anxiety; No no complaints, No nl mood/affect, No confusion, No depression, No suicidal, No other Head: normocephalic, atraumatic; No lacerations, No hematomas, No other Eyes: EOMI, nl lids; No nl conjunctiva, No nl sclera, No PERRL, No icteric, No fundi, disc, No other Neck: thyromegaly; No supple, No non-tender, No jvd, No bruits, No masses, No nuchal rigidity, No other Respiratory: normal air movement, congested cough, crackles/rales, diminished breath sounds; No clear to auscultation, No intercostal retraction, No labored breathing, No respirations, No tactile fremitus, No wheezing, No other Cardiovascular: nl pulses, edema, systolic murmur; No regular rate and rhythm, No bruits, No diastolic murmur, No gallop, No i rregular rhythm, No jugular venous distention (JVD), No murmurs/extra sounds, No rub, No S3, No S4, No other Gastrointestinal: nl liver, spleen, bowel sounds, distended; No soft, No non-tender, No ascites, No firm, No hepatomegaly, No mass, No rebound or guarding, No splenomegaly, No surgical scars, No tender, No other Musculoskeletal: nl gait and stance, joint tenderness, muscle tone, muscle weakness; No nl extremities to inspection, No range of motion, No spine non-tender, No swelling, No other Extremities: normal pulses, pitting pedal edema; No calf tenderness, No cyanosis, No clubbing, No edema, No palpable cord, No tenderness, No other 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: RELATIONS MANAGER 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; No nl mental status, No nl speech, No nl strength, No confused, No DTR's symmetric, No focal weakness, No lethargic, No numbness, No reflexes, No unresponsive, No other Skin: nl turgor; No rash or lesions, No diaphoresis, No ecchymosis, No laceration, No puncture, No other Results Results 24hrs Laboratory Tests Test 11/01/18 04:22 White Blood Count 3.2 #L Red Blood Count 2.98 L Hemoglobin 9.6 L Hematocrit 29.8 L Mean Corpuscular Volume 100.0 Mean Corpuscular Hemoglobin 32.2 Mean Corpuscular Hemoglobin Concent 32.2 Red Cell Distribution Width 16.1 H Platelet Count 155 Mean Platelet Volume 9.3 Immature Granulocytes % 0.000 L Neutrophils % 30.1 L Lymphocytes % 52.8 H Monocytes % 14.3 H Eosinophils % 1.9 Basophils % 0.9 Nucleated Red Blood Cells % 0.0 Immature Granulocytes # 0.000 Neutrophils # 1.0 L Lymphocytes # 1.7 Monocytes # 0.5 Eosinophils # 0.1 Basophils # 0.0 Nucleated Red Blood Cells # 0.0 Sodium Level 136 Potassium Level 3.9 Chloride Level 100 Carbon Dioxide Level 28 Anion Gap 8 Blood Urea Nitrogen 32 H Creatinine 1.00 Est Glomerular Filtrat Rate mL/min 57 L Glucose Level 110 Calcium Level 8.5 Phosphorus Level 5.2 H Magnesium Level 2.2 Medications Medication Current Medications Acetaminophen (Tylenol Tab) 650 mg Q4H PRN PO PAIN LEVEL 1-03/27 Last administered on 10/29/18 17:15; Admin Dose 650 MG; Start 10/21/18 at 23:30 Anastrozole (Arimidex) 1 mg DAILY PO Last administered on 10/31/18 10:16; Admin Dose 1 MG; Start 10/22/18 at 09:00 Benazepril HCl (Lotensin) 5 mg DAILY PO Last administered on 10/30/18 09:27; Admin Dose 5 MG; Start 10/22/18 at 09:00 Bisacodyl (Dulcolax Supp) 10 mg Q8 [place] Last administered on 10/31/18 16:42; Admin Dose 10 MG; Start 10/22/18 at 06:00 Carvedilol (Coreg) 3.125 mg BID PO Last administered on 10/30/18 09:27; Admin Dose 3.125 MG; Start 10/22/18 at 09:00 Docusate Sodium (Colace) 100 mg BID PO Last administered on 10/31/18 21:21; Admin Dose 100 MG; Start 10/22/18 at 09:00 Escitalopram Oxalate (Lexapro) 10 mg DAILY PO Last administered on 10/31/18 10:14; Admin Dose 10 MG; Start 10/22/18 at 09:00 Albuterol/ Ipratropium (Duoneb) 3 ml Q8H RESP THERAPY HHN Last administered on 11/01/18 00:44; Admin Dose 3 ML; Start 10/22/18 at 00:00 Loratadine (Claritin) 10 mg DAILY PO Last administered on 10/31/18 10:14; Admin Dose 10 MG; Start 10/22/18 at 09:00 Magnesium Hydroxide (Milk Of Mag) 30 ml DAILY PO Last administered on 10/31/18 10:16; Admin Dose 30 ML; Start 10/22/18 at 09:00 Oxycodone HCl (Oxycontin) 20 mg Q12 PO Last administered on 10/31/18 21:21; Admin Dose 20 MG; Start 10/22/18 at 09:00 Pantoprazole (Protonix Tab) 40 mg AC BREAKFAST PO Last administered on 11/01/18 06:20; Admin Dose 40 MG; Start 10/22/18 at 07:25 Polyethylene Glycol (Miralax) 17 gm DAILY PO Last administered on 10/31/18 10:16; Admin Dose 17 GM; Start 10/22/18 at 09:00 Simethicone (Mylicon) 80 mg Q8H PO Last administered on 11/01/18 00:03; Admin Dose 80 MG; Start 10/21/18 at 23:30 Spironolactone (Aldactone) 50 mg DAILY PO Last administered on 10/31/18 10:15; Admin Dose 50 MG; Start 10/22/18 at 09:00 Zolpidem Tartrate (Ambien) 10 mg HS PRN PO INSOMNIA Last administered on 10/22/18 21:20; Admin Dose 10 MG; Start 10/21/18 at 23:30 Morphine Sulfate (morphine) 2 mg Q4H PRN IV SEVERE PAIN LEVEL 7-10 Last administered on 10/23/18 14:15; Admin Dose 2 MG; Start 10/22/18 at 01:30 Potassium Chloride (Klor-Con 20) 20 meq BID PO Last administered on 10/31/18 21:21; Admin Dose 20 MEQ; Start 10/22/18 at 13:00 Phenol (Cepastat Lozenge) 1 lozenge Q1H PRN MT sore throat Last administered on 10/31/18 18:34; Admin Dose 1 LOZENGE; Start 10/27/18 at 21:30 Guaifenesin/ Codeine Phosphate (Robitussin Ac Liquid Cup) 10 ml Q8 PRN PO cough Last administered on 10/31/18 18:34; Admin Dose 10 ML; Start 10/27/18 at 21:30 Fluticasone Propionate (Flonase 0.05% Nasal) 1 spray BID NASAL Last administere d on 10/31/18at 21:20; Admin Dose 1 SPRAY; Start 10/29/18 at 21:00 Budesonide (Pulmicort (Neb)) 0.5 mg BID RESP THERAPY HHN Last administered on 10/31/18at 19:59; Admin Dose 0.5 MG; Start 10/30/18 at 09:00 Oseltamivir Phosphate (Tamiflu) 150 mg BID PO Last administered on 10/31/18at 21:22; Admin Dose 150 MG; Start 10/31/18 at 11:30; Stop 11/04/18 at 09:00 Azithromycin 500 mg/Sodium Chloride 250 ml @ 250 mls/hr NOW IVPB Last administered on 10/31/18at 15:29; Admin Dose 250 MLS/HR; Start 10/31/18 at 11:30; Stop 11/02/18 at 09:00 Metolazone (Zaroxolyn) 2.5 mg BID@0530,1730 PO Last administered on 11/01/18at 05:41; Admin Dose 2.5 MG; Start 11/01/18 at 05:30 Furosemide (Lasix) 40 mg BID DIURETICS IV ; Start 11/01/18 at 18:00 RUSS JEROME MD November 01, 2018 08:50
[2018-11-01] MEDS: BENAZEPRIL 5 MG TAB PO SCH (09:00)
[2018-11-01] MEDS: MAGNESIUM HYDROXIDE 30ML CUP PO SCH (09:00)
[2018-11-01] MEDS: FLUTICASONE 0.05% 16 GM NAS SPRAY NASAL SCH ×3 (09:00→21:00)
[2018-11-01] MEDS: SPIRONOLACTONE 50 MG TAB PO SCH (09:00)
[2018-11-01] MEDS: POLYETHYLENE GLYCOL 17 GM PACKET PO SCH (09:00)
[2018-11-01 09:21] VITALS: BP 92/57; PULSE 80; RESP 19
[2018-11-01] MEDS: BUDESONIDE (NEB) 0.5MG/2ML AMP HHN SCH ×2 (09:30→19:43)
[2018-11-01] MEDS: oxyCODONE (CR) 20 MG TAB [oxyCONTIN] PO SCH ×2 (09:52→21:12)
[2018-11-01] MEDS: LORATADINE 10 MG TAB PO SCH (09:53)
[2018-11-01] MEDS: POTASSIUM CHLORIDE (SR) 20 MEQ TAB PO SCH ×2 (09:53→21:11)
[2018-11-01] MEDS: DOCUSATE SODIUM 100 MG CAP PO SCH ×2 (09:53→21:11)
[2018-11-01] MEDS: ANASTROZOLE 1 MG TAB PO SCH (09:59)
[2018-11-01] MEDS: ESCITALOPRAM 10 MG TAB PO SCH (09:59)
[2018-11-01] MEDS: OSELTAMIVIR 75 MG CAP PO SCH ×2 (10:00→21:11)
[2018-11-01] MEDS: GUAIFENESIN/CODEINE 5ML CUP PO PRN (12:54)
[2018-11-01] MEDS: AZITHROMYCIN 500 MG in SOD CHLORIDE 0.9% 250 ML IVPB SCH (12:55)
--- NOTE | 2018-11-01 13:55 | CONS ---
Assessment/Plan Assessment/Plan Hospital Course (Demo Recall) IMPRESSION: 1. Congestive heart failure exacerbation would be diastolic, acute on chronic by most recent echo.-now s/p echo this admit with EF 60/small effusion 2. Abnormal electrocardiogram with low voltage, rule out pericardial effusion. 3. Hypertension-currently borderline hypotension 4. Metastatic breast carcinoma. 5. History of pathologic fractures of the leg, status post open reduction and internal fixation. 6. Anemia. 7. Increased BNP consistent with patient's congestive heart failure. 8. Pericardial effusion-small by echo Recc: -Tele -Continue lasix/aldactone and now metolazone -Consider additional IV albumin doses -Continue current coreg as tolerated only and will hold benazepril at this time and follow BP clsoely -follow K clsoely Consultation Date/Type/Reason Admit Date/Time October 21, 2018 at 17:39 Initial Consult Date 10/21/18 Type of Consult Cardiology Reason for Consultation CHF Requesting Provider: RUSS JEROME MD Date/Time of Note DATE: 11/01/18 TIME: 13:53 Exam/Review of Systems Vital Signs Vitals Vital Signs Date Temp Pulse Resp B/P (MAP) Pulse Ox O2 O2 Flow FiO2 Time Delivery Rate 11/01/18 2.0 09:30 11/01/18 81 18 97 Nasal 09:30 Cannula 11/01/18 97.5 92/57 (69) 09:21 10/31/18 27 20:02 Intake and Output 10/31/18 10/31/18 11/01/18 1515:00 23:00 07:00 IntakeIntake Total 250 ml 650 ml OutputOutput Total 750 ml BalanceBalance -750 ml 250 ml 650 ml Exam Exam Review of Systems: CONSTITUTIONAL: No fevers, chills. PULMONARY: No sob CARDIOVASCULAR: No chest pain/palpitations GASTROINTESTINAL: No nausea/vomiting. GENITOURINARY: No hematuria/dysuria. MUSCULOSKELETAL: No myagias/arthalgias. PSYCHIATRIC: The patient denies depression. NEUROLOGIC: No weakness Constitutional: alert Psych: no complaints Head: normocephalic ENMT: mucosa pink and moist Neck: supple, jvd (9 cm water) Respiratory: diminished breath sounds (at bases/B) Cardiovascular: regular rate and rhythm Gastrointestinal: soft, non-tender Musculoskeletal: muscle weakness (mild generalized) Extremities: pitting pedal edema (but decrased bilateraly) Labs Result Diagram: 11/01/18 0422 11/01/18 0422 Results 24hrs Laboratory Tests Test 11/01/18 04:22 White Blood Count 3.2 #L Red Blood Count 2.98 L Hemoglobin 9.6 L Hematocrit 29.8 L Mean Corpuscular Volume 100.0 Mean Corpuscular Hemoglobin 32.2 Mean Corpuscular Hemoglobin Concent 32.2 Red Cell Distribution Width 16.1 H Platelet Count 155 Mean Platelet Volume 9.3 Immature Granulocytes % 0.000 L Neutrophils % 30.1 L Lymphocytes % 52.8 H Monocytes % 14.3 H Eosinophils % 1.9 Basophils % 0.9 Nucleated Red Blood Cells % 0.0 Immature Granulocytes # 0.000 Neutrophils # 1.0 L Lymphocytes # 1.7 Monocytes # 0.5 Eosinophils # 0.1 Basophils # 0.0 Nucleated Red Blood Cells # 0.0 Sodium Level 136 Potassium Level 3.9 Chloride Level 100 Carbon Dioxide Level 28 Anion Gap 8 Blood Urea Nitrogen 32 H Creatinine 1.00 Est Glomerular Filtrat Rate mL/min 57 L Glucose Level 110 Calcium Level 8.5 Phosphorus Level 5.2 H Magnesium Level 2.2 Medications Medications Current Medications Acetaminophen (Tylenol Tab) 650 mg Q4H PRN PO PAIN LEVEL 1-10/10 Last adminis tered on 10/29/18at 17:15; Admin Dose 650 MG; Start 10/21/18 at 23:30 Anastrozole (Arimidex) 1 mg DAILY PO Last administered on 11/01/18at 09:59; Admin Dose 1 MG; Start 10/22/18 at 09:00 Benazepril HCl (Lotensin) 5 mg DAILY PO Last administered on 10/30/18 09:27; Admin Dose 5 MG; Start 10/22/18 at 09:00 Bisacodyl (Dulcolax Supp) 10 mg Q8 MS Last administered on 10/31/18at 16:42; Admin Dose 10 MG; Start 10/22/18 at 06:00 Carvedilol (Coreg) 3.125 mg BID PO Last administered on 10/30/18 09:27; Admin Dose 3.125 MG; Start 10/22/18 at 09:00 Docusate Sodium (Colace) 100 mg BID PO Last administered on 5/17/19at 09:53; Admin Dose 100 MG; Start 10/22/18 at 09:00 Escitalopram Oxalate (Lexapro) 10 mg DAILY PO Last administered on 11/01/18 09:59; Admin Dose 10 MG; Start 10/22/18 at 09:00 Albuterol/ Ipratropium (Duoneb) 3 ml Q8H RESP THERAPY HHN Last administered on 11/01/18 09:30; Admin Dose 3 ML; Start 10/22/18 at 00:00 Loratadine (Claritin) 10 mg DAILY PO Last administered on 11/01/18 09:53; A dmin Dose 10 MG; Start 10/22/18 at 09:00 Magnesium Hydroxide (Milk Of Mag) 30 ml DAILY PO Last administered on 10/31/18 10:16; Admin Dose 30 ML; Start 10/22/18 at 09:00 Oxycodone HCl (Oxycontin) 20 mg Q12 PO Last administered on 11/01/18 09:52; Admin Dose 20 MG; Start 10/22/18 at 09:00 Pantoprazole (Protonix Tab) 40 mg AC BREAKFAST PO Last administered on 11/01/18 06:20; Admin Dose 40 MG; Start 10/22/18 at 07:25 Polyethylene Glycol (Miralax) 17 gm DAILY PO Last administered on 10/31/18 10:16; Admin Dose 17 GM; Start 10/22/18 at 09:00 Simethicone (Mylicon) 80 mg Q8H PO Last administered on 11/01/18 10:00; Admin Dose 80 MG; Start 10/21/18 at 23:30 Spironolactone (Aldactone) 50 mg DAILY PO Last administered on 10/31/18 10:15; Admin Dose 50 MG; Start 10/22/18 at 09:00 Zolpidem Tartrate (Ambien) 10 mg HS PRN PO INSOMNIA Last administered on 10/22/18 21:20; Admin Dose 10 MG; Start 10/21/18 at 23:30 Morphine Sulfate (morphine) 2 mg Q4H PRN IV SEVERE PAIN LEVEL 7-10 Last administered on 10/23/18 14:15; Admin Dose 2 MG; Start 10/22/18 at 01:30 Potassium Chloride (Klor-Con 20) 20 meq BID PO Last administered on 11/01/18 09:53; Admin Dose 20 MEQ; Start 10/22/18 at 13:00 Phenol (Cepastat Lozenge) 1 lozenge Q1H PRN MT sore throat Last administered on 10/31/18 18:34; Admin Dose 1 LOZENGE; Start 10/27/18 at 21:30 Guaifenesin/ Codeine Phosphate (Robitussin Ac Liquid Cup) 10 ml Q8 PRN PO cough Last administered on 11/01/18 12:54; Admin Dose 10 ML; Start 10/27/18 at 21:30 Fluticasone Propionate (Flonase 0.05% Nasal) 1 spray BID NASAL Last administered on 10/31/18 21:20; Admin Dose 1 SPRAY; Start 10/29/18 at 21:00 Budesonide (Pulmicort (Neb)) 0.5 mg BID RESP THERAPY HHN Last administered on 11/01/18 09:30; Admin Dose 0.5 MG; Start 10/30/18 at 09:00 Oseltamivir Phosphate (Tamiflu) 150 mg BID PO Last administered on 11/01/18 10:00; Admin Dose 150 MG; Start 10/31/18 at 11:30; Stop 11/04/18 at 09:00 Azithromycin 500 mg/Sodium Chloride 250 ml @ 250 mls/hr NOW IVPB Last administered on 11/01/18 12:55; Admin Dose 250 MLS/HR; Start 10/31/18 at 11:30; Stop 11/02/18 at 09:00 Metolazone (Zaroxolyn) 2.5 mg BID@0530,1730 PO Last administered on 11/01/18 05:41; Admin Dose 2.5 MG; Start 11/01/18 at 05:30 Furosemide (Lasix) 40 mg BID DIURETICS IV ; Start 11/01/18 at 18:00 KAMIAL TERESA November 01, 2018 13:55
[2018-11-01 15:56] VITALS: BP 113/56; PULSE 84; RESP 18
[2018-11-01] MEDS: FUROSEMIDE 40 MG INJ IV SCH (18:30)
[2018-11-01 21:10] VITALS: BP 100/60; PULSE 80; RESP 18
--- NOTE | 2018-11-01 22:56 | CONS ---
Assessment/Plan Assessment/Plan Hospital Course (Demo Recall) METASTATIC BREAST CANCER WITH PRIMARY ADENOCARCINOMA IN the left breast. MULTIPLE BONY METS, PULMONARY METS, LIVER METS CHEMO ON HOLD PT HAS A VERY GOOD RESPONSE TO CHEMO AND AI CONT AI FOR NOW CT ABD FOR RESTAGING 08.27.18- noted , stable Leukopenia- post chemo, FLUCTUATING WITH RECENT WORSENING- post NEUPOGEN monitor closely post Neutropenia with occasional fever and chills. - resolved Anemia chronic disease SOB PLEURAL EFFUSIONS, NEG CYTOLOGY POST thoracentesis Fluid overload diuretic cardiology F-UP Severe pain in the interscapular and lumbar sacral area most probably metastatic lesion possible femoral fracture. pathologic fracture of T9 with 60% of loss of height. Bony pain with multiple bony mets post XRT will d/w dr Ocampo Obesity. Weight loss 60 pounds during the last 2 years PMS. Myopia. Anxiety disorder. Claustrophobia. Posttraumatic stress disorder. Pain in the left forearm with a history of fracture of ulna and radius. Tachycardia Hypoxemia at night marginal improved after 2 L of nasal cannula oxygen. Deconditioning Pain syndrome. Today the most painful zone is in the right hip area. X-ray did not show any fractures. Hyponatremia- resolved Hypoalbuminemia Right sided cp after catheter insertion and correction less discomfort. Decreased edema both lower extremities with hypotension-improving Swelling of the left forearm-persist. Consultation Date/Type/Reason Admit Date/Time October 21, 2018 at 17:39 Initial Consult Date 10/21/18 Type of Consult [facility] Requesting Provider: RUSS JEROME MD Date/Time of Note DATE: 11/01/18 TIME: 22:55 24 HR Interval Summary Free Text/Dictation ALL NOTED + PAIN Exam/Review of Systems Exam Vitals Vital Signs Date Temp Pulse Resp B/P (MAP) Pulse Ox O2 O2 Flow FiO2 Time Delivery Rate 11/01/18 98.2 80 18 100/60 95 Room Air 2.0 21:10 (73) 10/31/18 27 20:02 Intake and Output 10/31/18 10/31/18 11/01/18 1515:00 23:00 07:00 IntakeIntake Total 250 ml 650 ml OutputOutput Total 750 ml BalanceBalance -750 ml 250 ml 650 ml Exam HEENT: Head is normocephalic. NECK: Supple. HEART: Regular rate. LUNGS: Show diminished breath sounds at the base. ABDOMEN: Soft, nontender to palpation without rebound or guarding. EXTREMITIES: Negative for clubbing, cyanosis. Positive edema, improving. DERMATOLOGIC: No rashes. MUSCULOSKELETAL: No joint effusion. NEUROLOGIC: No change in exam. Results Result Diagram: 11/01/18 0422 11/01/18 0422 Results 24hrs Laboratory Tests Test 11/01/18 04:22 White Blood Count 3.2 #L Red Blood Count 2.98 L Hemoglobin 9.6 L Hematocrit 29.8 L Mean Corpuscular Volume 100.0 Mean Corpuscular Hemoglobin 32.2 Mean Corpuscular Hemoglobin Concent 32.2 Red Cell Distribution Width 16.1 H Platelet Count 155 Mean Platelet Volume 9.3 Immature Granulocytes % 0.000 L Neutrophils % 30.1 L Lymphocytes % 52.8 H Monocytes % 14.3 H Eosinophils % 1.9 Basophils % 0.9 Nucleated Red Blood Cells % 0.0 Immature Granulocytes # 0.000 Neutrophils # 1.0 L Lymphocytes # 1.7 Monocytes # 0.5 Eosinophils # 0.1 Basophils # 0.0 Nucleated Red Blood Cells # 0.0 Sodium Level 136 Potassium Level 3.9 Chloride Level 100 Carbon Dioxide Level 28 Anion Gap 8 Blood Urea Nitrogen 32 H Creatinine 1.00 Est Glomerular Filtrat Rate mL/min 57 L Glucose Level 110 Calcium Level 8.5 Phosphorus Level 5.2 H Magnesium Level 2.2 Medications Medication Current Medications Acetaminophen (Tylenol Tab) 650 mg Q4H PRN PO PAIN LEVEL 1-10/10 Last administered on 10/29/18at 17:15; Admin Dose 650 MG; Start 10/21/18 at 23:30 Anastrozole (Arimidex) 1 mg DAILY PO Last administered on 11/01/18at 09:59; Admin Dose 1 MG; Start 10/22/18 at 09:00 Benazepril HCl (Lotensin) 5 mg DAILY PO Last administered on 10/30/18 09:27; A dmin Dose 5 MG; Start 10/22/18 at 09:00; Status Hold Bisacodyl (Dulcolax Supp) 10 mg Q8 SC Last administered on 10/31/18at 16:42; Admin Dose 10 MG; Start 10/22/18 at 06:00 Carvedilol (Coreg) 3.125 mg BID PO Last administered on 10/30/18at 09:27; Admin Dose 3.125 MG; Start 10/22/18 at 09:00 Docusate Sodium (Colace) 100 mg BID PO Last administered on 11/01/18 21:11; Admin Dose 100 MG; Start 10/22/18 at 09:00 Escitalopram Oxalate (Lexapro) 10 mg DAILY PO Last administered on 11/01/18 09:59; Admin Dose 10 MG; Start 10/22/18 at 09:00 Albuterol/ Ipratropium (Duoneb) 3 ml Q8H RESP THERAPY HHN Last administered on 11/01/18 16:10; Admin Dose 3 ML; Start 10/22/18 at 00:00 Loratadine (Claritin) 10 mg DAILY PO Last administered on 11/01/18 09:53; Admin Dose 10 MG; Start 10/22/18 at 09:00 Magnesium Hydroxide (Milk Of Mag) 30 ml DAILY PO Last administered on 10/31/18 10:16; Admin Dose 30 ML; Start 10/22/18 at 09:00 Oxycodone HCl (Oxycontin) 20 mg Q12 PO Last administered on 11/01/18 21:12; Admin Dose 20 MG; Start 10/22/18 at 09:00 Pantoprazole (Protonix Tab) 40 mg AC BREAKFAST PO Last administered on 11/01/18 06:20; Admin Dose 40 MG; Start 10/22/18 at 07:25 Polyethylene Glycol (Miralax) 17 gm DAILY PO Last administered on 10/31/18 10:16; Admin Dose 17 GM; Start 10/22/18 at 09:00 Simethicone (Mylicon) 80 mg Q8H PO Last administered on 11/01/18 10:00; Admin Dose 80 MG; Start 10/21/18 at 23:30 Spironolactone (Aldactone) 50 mg DAILY PO Last administered on 10/31/18 10:15; Admin Dose 50 MG; Start 10/22/18 at 09:00 Zolpidem Tartrate (Ambien) 10 mg HS PRN PO INSOMNIA Last administered on 10/22/18 21:20; Admin Dose 10 MG; Start 10/21/18 at 23:30 Morphine Sulfate (morphine) 2 mg Q4H PRN IV SEVERE PAIN LEVEL 7-10 Last administered on 10/23/18 14:15; Admin Dose 2 MG; Start 10/22/18 at 01:30 Potassium Chloride (Klor-Con 20) 20 meq BID PO Last administered on 11/01/18 21:11; Admin Dose 20 MEQ; Start 10/22/18 at 13:00 Phenol (Cepastat Lozenge) 1 lozenge Q1H PRN MT sore throat Last administered on 10/31/18 18:34; Admin Dose 1 LOZENGE; Start 10/27/18 at 21:30 Guaifenesin/ Codeine Phosphate (Robitussin Ac Liquid Cup) 10 ml Q8 PRN PO cough Last administered on 11/01/18 12:54; Admin Dose 10 ML; Start 10/27/18 at 21:30 Fluticasone Propionate (Flonase 0.05% Nasal) 1 spray BID NASAL Last administered on 10/31/18 21:20; Admin Dose 1 SPRAY; Start 10/29/18 at 21:00 Budesonide (Pulmicort (Neb)) 0.5 mg BID RESP THERAPY HHN Last administered on 11/01/18 19:43; Admin Dose 0.5 MG; Start 10/30/18 at 09:00 Oseltamivir Phosphate (Tamiflu) 150 mg BID PO Last administered on 11/01/18 21:11; Admin Dose 150 MG; Start 10/31/18 at 11:30; Stop 11/04/18 at 09:00 Azithromycin 500 mg/Sodium Chloride 250 ml @ 250 mls/hr NOW IVPB Last administered on 11/01/18 12:55; Admin Dose 250 MLS/HR; Start 10/31/18 at 11:30; Stop 11/02/18 at 09:00 Metolazone (Zaroxolyn) 2.5 mg BID@0530,1730 PO Last administered on 11/01/18 17:53; Admin Dose 2.5 MG; Start 11/01/18 at 05:30 Furosemide (Lasix) 40 mg BID DIURETICS IV Last administered on 11/01/18 18:30; Admin Dose 40 MG; Start 11/01/18 at 18:00 DES DUNAWAY MD November 01, 2018 22:56
[2018-11-02] MEDS: ALBUTEROL/IPRATROPIUM (NEB) 3 ML AMP HHN SCH ×3 (00:05→16:43)
[2018-11-02 03:34] VITALS: BP 105/62; PULSE 78; RESP 18
[2018-11-02] MEDS: METOLAZONE 2.5 MG TAB PO SCH ×2 (05:57→17:50)
[2018-11-02] MEDS: BISACODYL 10 MG SUPP PR SCH ×3 (05:58→22:00)
[2018-11-02] MEDS: PANTOPRAZOLE (EC) 40 MG TAB PO SCH (06:36)
[2018-11-02] MEDS: FUROSEMIDE 40 MG INJ IV SCH ×2 (06:36→18:34)
[2018-11-02] MEDS: SPIRONOLACTONE 50 MG TAB PO SCH (08:36)
[2018-11-02] MEDS: OSELTAMIVIR 75 MG CAP PO SCH ×2 (08:37→20:31)
[2018-11-02] MEDS: DOCUSATE SODIUM 100 MG CAP PO SCH ×2 (08:37→20:31)
[2018-11-02] MEDS: POTASSIUM CHLORIDE (SR) 20 MEQ TAB PO SCH ×2 (08:38→20:31)
[2018-11-02] MEDS: LORATADINE 10 MG TAB PO SCH (08:39)
[2018-11-02] MEDS: ESCITALOPRAM 10 MG TAB PO SCH (08:39)
[2018-11-02] MEDS: oxyCODONE (CR) 20 MG TAB [oxyCONTIN] PO SCH ×2 (08:42→20:32)
[2018-11-02] MEDS: ANASTROZOLE 1 MG TAB PO SCH (08:42)
[2018-11-02] MEDS: GUAIFENESIN/CODEINE 5ML CUP PO PRN (08:47)
[2018-11-02] MEDS ORDERED: POTASSIUM CHLORIDE (SR) 20 MEQ TAB PO STA (08:49)
[2018-11-02] MEDS: BUDESONIDE (NEB) 0.5MG/2ML AMP HHN SCH ×2 (08:51→20:20)
[2018-11-02 08:56] VITALS: BP 104/55; PULSE 89; RESP 18
[2018-11-02] MEDS: FLUTICASONE 0.05% 16 GM NAS SPRAY NASAL SCH ×2 (09:00→20:30)
[2018-11-02] MEDS: MAGNESIUM HYDROXIDE 30ML CUP PO SCH (09:00)
[2018-11-02] MEDS: GUAIFENESIN/CODEINE 5ML CUP PO SCH ×4 (09:00→20:34)
[2018-11-02] MEDS: POLYETHYLENE GLYCOL 17 GM PACKET PO SCH (09:00)
--- NOTE | 2018-11-02 09:21 | PN ---
Date/Time of Note Date/Time of Note DATE: 11/02/18 TIME: 09:17 Assessment/Plan VTE Prophylaxis Risk score (from Nsg)>0 risk: 8 SCD applied (from Nsg): No SCD contraindicated: other (on.) Pharmacological prophylaxis: LMWH Lines/Catheters IV Catheter Type (from Nrsg): Central Line Central line still needed: No Urinary Cath still in place: No Reason Cath still needed: urinary retention Assessment/Plan Assessment/Plan 1. PRIMARY ADENOCARCINOMA of the left breast. MULTIPLE BONY METS, PULMONARY METS;LIVER METS CHEMO ON HOLD; PT HAS A VERY GOOD RESPONSE TO CHEMO AND AI 2. Severe pain in the interscapular and lumbar sacral area most probably metastatic lesion possible femoral fracture. pathologic fracture of T9 with 60% of loss of height. Neurosurgical f/u. 3. Obesity. 4. Weight loss 60 pounds during the last 2 years by diet 5. PMS. 6. Myopia. 7. Anemia chronic disease with a drop of her hematocrit to 27; Latest results 28. Will recheck tomorrow;Leukopenia.Thrombocytopenia; 8. Anxiety disorder. Claustrophobia. Increase Ativan to 1 mg every 8 as needed at Lexapro 10 mg daily. 9. Posttraumatic stress disorder. 10. Pain in the left forearm with a history of fracture of ulna and radius. 11. Tachycardia 12. Hypoxemia at night marginal improved after 2 L of nasal cannula oxygen. 13. Deconditioning 14. 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 MRI: 09/28/18:diffuse osseous metastatic disease with multiple pathologic compression fractures at least involving the T4, T5, T7, T9 and T11 levels. There is likely mild cortical breakthrough at several levels resulting in mild central canal narrowing. No gross evidence of cord compression is seen.. 15. Pain syndrome. Today the most painful zone is in the right hip area. 16. Hyponatremia-corrected; hypokalemia now hyperkalemic 5.2 hold potassium p.o. today and hold Aldactone today.Recheck and sodium chloride daily with the dose to 4 mg today 17. Leucopenia-improved. 18. Neutropenia with occasional fever and chills. Last chemotherapy 5 days ago. 19. Hypoalbuminemia. 20.Right sided cp after catheter insertion and correction less discomfort. 21. Decreased edema both lower extremities with [id number] with Pleural and Pericardial effusion. 22. pain syndrome 23.bilateral pleural effusions ; s/p left thoracentesis, During the procedure the probe of the u/s was placed to the right side of the chest which showed only minimal amount of liquid on the right pleural cavity. Reaccumulation of the pleural fluid. Plan to tap from the right side tomorrow a.m. 24. Systolic over diastolic congestive heart failure with a right more than left lower extremity swelling with no DVT in latest venous Doppler. 25. Swelling of the left forearm-persist. Cellulitis of the left forearm with increased edema anteriorly.-Today it is less edematous 26. Pathologic fracture of the right hip;s/p hemiarthroplasty of right hip . 27. Dizziness 28. Chills. 29. Memory impairment. 30. Upper respiratory infection pharyngitis with dry cough. 31. Decreased voice with wheezing. Result Diagram: 11/01/18 0422 11/02/18 0505 Results 24hrs Laboratory Tests Test 11/02/18 05:05 Sodium Level 135 Potassium Level 3.1 L Chloride Level 98 Carbon Dioxide Level 30 Anion Gap 7 Blood Urea Nitrogen 32 H Creatinine 0.90 Est Glomerular Filtrat Rate mL/min > 60 Glucose Level 102 Calcium Level 8.7 Phosphorus Level 5.1 H Magnesium Level 2.1 Subjective 24 Hr Interval Summary Free Text/Dictation Decreased cough. Still I am wheezing. Constitutional: improved, chills, poor po, requiring O2; No no complaints, No diaphoresis, No disoriented, No febrile, No requiring IVF, No other Eyes: No no complaints, No pain, No discharge, No redness, No visual change, No other ENT: pain, congestion, sore throat; No no complaints, No bleeding, No discharge, No dysphagia, No other Respiratory: cough, pleuritic pain, shortness of breath, wheezing; No no complaints, No pain, No sputum, No other Gastrointestinal: constipation, decreased appetite, nausea, passing stool; No no complaints, No pain, No blood, No diarrhea, No flatus, No vomiting, No other Genitourinary: dysuria; No no complaints, No bleeding, No discharge, No flank pain, No hematuria, No other Musculoskeletal: back pain, bone/joint pain Skin: No no complaints, No bruising, No erythema, No laceration, No pruritis, No rash, No skin lesions, No other Neurologic: dizziness, headache; No no complaints, No confusion, No focal-weakness, No syncope, No seizure, No other Lymphatic: No no complaints, No adenopathy, No tender nodes, No lymphadema, No other Psychological: anxiety Exam/Review of Systems Exam Vitals Vital Signs Date Temp Pulse Resp B/P (MAP) Pulse Ox O2 O2 Flow FiO2 Time Delivery Rate 11/02/18 87 18 98 Nasal 2.0 08:59 Cannula 11/02/18 97.6 104/55 08:56 (71) 10/31/18 27 20:02 Intake and Output 11/01/18 11/01/18 11/02/18 1515:00 23:00 07:00 IntakeIntake Total 800 ml 770 ml 500 ml OutputOutput Total 400 ml 450 ml BalanceBalance 800 ml 370 ml 50 ml Constitutional: alert, oriented Psych: anxiety, confusion, depression; No no complaints, No nl mood/affect, No suicidal, No other Head: normocephalic, atraumatic Eyes: EOMI, nl sclera; No nl conjunctiva, No nl lids, No PERRL, No icteric, No fundi, disc, No other ENMT: No nl external ears & nose, No nl lips & teeth, No nl nasal mucosa & septum, No mucosa pink and moist, No intubated, No tympanic membranes, No other Neck: jvd, thyromegaly, nuchal rigidity; No supple, No non-tender, No bruits, No masses, No other Respiratory: congested cough, crackles/rales, diminished breath sounds, wheezing; No clear to auscultation, No normal air movement, No intercostal retraction, No labored breathing, No respirations, No tactile fremitus, No other Cardiovascular: regular rate and rhythm, edema, systolic murmur; No nl pulses, No bruits, No diastolic murmur, No gallop, No irregular rhythm, No jugular venous distention (JVD), No murmurs/extra sounds, No rub, No S3, No S4, No other Gastrointestinal: soft, bowel sounds; No nl liver, spleen, No non-tender, No ascites, No distended, No firm, No hepatomegaly, No mass, No rebound or guarding, No splenomegaly, No surgical s cars, No tender, No other Genitourinary - Female: nl adnexae, nl external genitalia; No CMT, No CVA tenderness, No uterus, No other Musculoskeletal: joint tenderness; No nl extremities to inspection, No nl gait and stance, No muscle tone, No muscle weakness, No range of motion, No spine non-tender, No swelling, No other Extremities: edema, pitting pedal edema; No normal pulses, No calf tenderness, No cyanosis, No clubbing, No palpable cord, No tenderness, No other 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: PRIVATE DETECTIVE 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; No nl mental status, No nl speech, No nl strength, No confused, No DTR's symmetric, No focal weakness, No lethargic, No numbness, No reflexes, No unresponsive, No other Skin: No nl turgor, No rash or lesions, No diaphoresis, No ecchymosis, No laceration, No puncture, No other Lymph: No nl lymph nodes, No enlarged, No nontender, No other Results Results 24hrs Laboratory Tests Test 11/02/18 05:05 Sodium Level 135 Potassium Level 3.1 L Chloride Level 98 Carbon Dioxide Level 30 Anion Gap 7 Blood Urea Nitrogen 32 H Creatinine 0.90 Est Glomerular Filtrat Rate mL/min > 60 Glucose Level 102 Calcium Level 8.7 Phosphorus Level 5.1 H Magnesium Level 2.1 Medications Medication Current Medications Acetaminophen (Tylenol Tab) 650 mg Q4H PRN PO PAIN LEVEL 1-10/10 Last administered on 10/29/18at 17:15; Admin Dose 650 MG; Start 10/21/18 at 23:30 Anastrozole (Arimidex) 1 mg DAILY PO Last administered on 11/02/18at 08:42; Admin Dose 1 MG; Start 10/22/18 at 09:00 Benazepril HCl (Lotensin) 5 mg DAILY PO Last administered on 10/30/18 09:27; Admin Dose 5 MG; Start 10/22/18 at 09:00; Status Hold Bisacodyl (Dulcolax Supp) 10 mg Q8 AK Last administered on 10/31/18at 16:42; Admin Dose 10 MG; Start 10/22/18 at 06:00 Carvedilol (Coreg) 3.125 mg BID PO Last administered on 11/02/18at 08:38; Admin Dose 3.125 MG; Start 10/22/18 at 09:00 Docusate Sodium (Colace) 100 mg BID PO Last administered on 11/02/18 08:37; Admin Dose 100 MG; Start 10/22/18 at 09:00 Escitalopram Oxalate (Lexapro) 10 mg DAILY PO Last administered on 11/02/18 08:39; Admin Dose 10 MG; Start 10/22/18 at 09:00 Albuterol/ Ipratropium (Duoneb) 3 ml Q8H RESP THERAPY HHN Last administered on 11/02/18 08:49; Admin Dose 3 ML; Start 10/22/18 at 00:00 Loratadine (Claritin) 10 mg DAILY PO Last administered on 11/02/18 08:39; Admin Dose 10 MG; Start 10/22/18 at 09:00 Magnesium Hydroxide (Milk Of Mag) 30 ml DAILY PO Last administered on 10/31/18 10:16; Admin Dose 30 ML; Start 10/22/18 at 09:00 Oxycodone HCl (Oxycontin) 20 mg Q12 PO Last administered on 11/02/18 08:42; Admin Dose 20 MG; Start 10/22/18 at 09:00 Pantoprazole (Protonix Tab) 40 mg AC BREAKFAST PO Last administered on 11/02/18 06:36; Admin Dose 40 MG; Start 10/22/18 at 07:25 Polyethylene Glycol (Miralax) 17 gm DAILY PO Last administered on 10/31/18 10:16; Admin Dose 17 GM; Start 10/22/18 at 09:00 Simethicone (Mylicon) 80 mg Q8H PO Last administered on 11/01/18 10:00; Admin Dose 80 MG; Start 10/21/18 at 23:30 Spironolactone (Aldactone) 50 mg DAILY PO Last administered on 11/02/18 08:36; Admin Dose 50 MG; Start 10/22/18 at 09:00 Zolpidem Tartrate (Ambien) 10 mg HS PRN PO INSOMNIA Last administered on 10/22/18 21:20; Admin Dose 10 MG; Start 10/21/18 at 23:30 Morphine Sulfate (morphine) 2 mg Q4H PRN IV SEVERE PAIN LEVEL 7-10 Last administered on 10/23/18 14:15; Admin Dose 2 MG; Start 10/22/18 at 01:30 Potassium Chloride (Klor-Con 20) 20 meq BID PO Last administered on 11/02/18 08:38; Admin Dose 20 MEQ; Start 10/22/18 at 13:00 Phenol (Cepastat Lozenge) 1 lozenge Q1H PRN MT sore throat Last administered on 10/31/18 18:34; Admin Dose 1 LOZENGE; Start 10/27/18 at 21:30 Fluticasone Propionate (Flonase 0.05% Nasal) 1 spray BID NASAL Last administered on 10/31/18 21:20; Admin Dose 1 SPRAY; Start 10/29/18 at 21:00 Budesonide (Pulmicort (Neb)) 0.5 mg BID RESP THERAPY HHN Last administered on 11/02/18 08:51; Admin Dose 0.5 MG; Start 10/30/18 at 09:00 Oseltamivir Phosphate (Tamiflu) 150 mg BID PO Last administered on 11/02/18 08:37; Admin Dose 150 MG; Start 10/31/18 at 11:30; Stop 11/04/18 at 09:00 Metolazone (Zaroxolyn) 2.5 mg BID@0530,1730 PO Last administered on 11/02/18 05:57; Admin Dose 2.5 MG; Start 11/01/18 at 05:30 Furosemide (Lasix) 40 mg BID DIURETICS IV Last administered on 11/02/18 06:36; Admin Dose 40 MG; Start 11/01/18 at 18:00 Guaifenesin/ Codeine Phosphate (Robitussin Ac Liquid Cup) 10 ml Q4 PO ; Start 11/02/18 at 09:00 Enoxaparin Sodium (Lovenox) 40 mg DAILY SC ; Start 11/02/18 at 09:00 RUSS JEROME MD November 02, 2018 09:21
--- NOTE | 2018-11-02 09:27 | PN ---
DATE: 11/02/2018 SUBJECTIVE: The patient is stable overnight. Urinary output has improved events noted. No hemoptys is, hematemesis or hematochezia. OBJECTIVE: VITAL SIGNS: Blood pressure is 105/62, respirations 16, pulse 78, temperature 98.4. HEENT: Head is normocephalic. NECK: Supple. HEART: Regular rate. LUNGS: Show diminished breath sounds at the base. ABDOMEN: Soft, nontender to palpation without rebound or guarding. EXTREMITIES: Negative for clubbing, cyanosis. Positive edema. DERMATOLOGIC: No rashes. MUSCULOSKELETAL: No joint effusions. NEUROLOGIC: No change in exam. MEDICATIONS: Reviewed. LABORATORY DATA: Has been reviewed. ASSESSMENT AND PLAN: 1. Volume overload. Etiology is multifactorial secondary to diastolic heart failure, possible vishal l hypertension, questionable nephrogenic spread. The patient is currently on loop diuretics, Metolaz one. Aldactone. Urinary output has improved after changing from p.o. to IV loop diuretics. Continue to monitor electrolytes, renal function closely. 3. Hypokalemia. Replete potassium chloride. 4. Nonoliguric acute kidney injury with previously normal baseline creatinine. Etiology of acute ki dney injury is secondary to hemodynamics. Renal function is improved. Continue to monitor. 5. Alkalosis. Continue to give intermittent Diamox as needed. 6. Mineral bone disorder, monitor calcium and phosphorus levels. 7. Breast cancer with metastasis to the liver and spine. Continue to monitor. Follow up with [facility]. 8. Hip fracture, status post arthroplasty. 9. Pleural effusion, status post thoracentesis. 10. Chronic pain syndrome. Continue current pain regimen. Dictated By: ANDRÉS TATUM DO NR/NTS Conf#: [id number] DID#: [id number] CC: RUSS JEROME MD;*EndCC*
[2018-11-02] MEDS: ENOXAPARIN 40 MG/0.4 ML SYG SC SCH (10:46)
--- NOTE | 2018-11-02 14:05 | CONS ---
Consult Date/Type/Reason Admit Date/Time October 21, 2018 at 17:39 Initial Consult Date 10/21/18 Requesting Provider: RUSS JEROME MD Date/Time of Note DATE: 11/02/18 TIME: 14:03 Subjective NO acute events - pt much better with diuresis - improved LO edema + bronchitic cough now - on anti-Bx ROS: No fever, no chills, no nausea, no vomiting, no diarrhea/constipation - much better + cough No recent weight changes No chest pain, no PND, no orthopnea No dizziness, blurred vision No thirst, no heat or cold intolerance Objective Vitals Vital Signs Date Temp Pulse Resp B/P (MAP) Pulse Ox O2 O2 Flow FiO2 Time Delivery Rate 11/02/18 87 18 98 Nasal 2.0 08:59 Cannula 11/02/18 97.6 104/55 08:56 (71) 10/31/18 27 20:02 Intake and Output 11/01/18 11/01/18 11/02/18 1515:00 23:00 07:00 IntakeIntake Total 800 ml 770 ml 500 ml OutputOutput Total 400 ml 450 ml BalanceBalance 800 ml 370 ml 50 ml Exam General: WN/WD/NAD, AOx 3 HEENT: Unicetric/atraumatic/EOMI (follow commands) NECK: JVD elevated, no thyromegaly Lymph: no lymphadenopathy HEART: regular with no S3, II/ systolic murmur at apex LUNGS: Coarse sounds, rales ABD: soft, NT, ND, +BS : Intact Neuro: non focal SKIN: chronic changes EXT: Improved 1+ edema Results/Medications Result Diagram: 11/01/18 0422 11/02/18 0505 Results 24 hrs Laboratory Tests Test 11/02/18 05:05 Sodium Level 135 Potassium Level 3.1 L Chloride Level 98 Carbon Dioxide Level 30 Anion Gap 7 Blood Urea Nitrogen 32 H Creatinine 0.90 Est Glomerular Filtrat Rate mL/min > 60 Glucose Level 102 Calcium Level 8.7 Phosphorus Level 5.1 H Magnesium Level 2.1 Home Meds Reported Medications Tuberculin,Purif.prot.deriv. (Tubersol) 5 Tub Unit/0.1 Ml Vial, 0.1 ML ID, VIAL INJECT QHS EVERY 10 DAYS FOR PPD SCREENING FOR 11 DAYS READ IN 48 HOURS,IF NEGATIVE 2STEP IN 7 DAYS FROM FIRST DOSE. 10/21/18 Acetaminophen* (Tylenol*) 325 Mg Tablet, 650 MG PO Q4H PRN for PAIN LEVEL 1- 03/27, TAB 10/21/18 Spironolactone* (Aldactone*) 50 Mg Tablet, 50 MG PO DAILY, #30 TAB HOLD FOR SBP<110 10/21/18 Simethicone* (Mylicon*) 80 Mg Tab, 80 MG PO Q8H, TAB 10/21/18 Olopatadine* (Patanol* Ophth) 0.1% - 5 Ml Drops, 1 DROP BOTH EYES BID, EA 10/21/18 Hydrocodone/Acetaminophen ([place] 10-325 Tablet) 1 Each Tablet, 1 EACH PO Q4H, TAB 10/21/18 Loratadine* (Loratadine*) 10 Mg Tablet, 10 MG PO DAILY for FOR 3 MONTHS, #30 TAB 10/21/18 Lidocaine (Lidocaine) 1 Each Adh..patch, 1 EACH TP DAILY 10/21/18 Ipratropium-Albuterol (Ipratropium-Albuterol) 0.5-3 Mg/3 Ml Ampul.neb, 3 ML INHALATION Q8H, #30 VIAL 10/21/18 Furosemide* (Furosemide*) 40 Mg Tablet, 40 MG PO BID, TAB HOLD FOR SBP<110 10/21/18 Na Phos,M-B/Na Phos,Di-Ba (Fleet Enema Extra) Unknown Strength Enema, 1 APPLIC RC NEEDED for CONSTIPATION, ENEMA 10/21/18 Bisacodyl (Dulcolax) 10 Mg Supp.rect, 10 MG RC NEEDED, SUPP.RECT 10/21/18 Potassium Chloride* (Potassium Chloride*) 20 Meq Tablet.er, 20 MEQ PO DAILY, TAB.SA 09/09/18 Pantoprazole* (Pantoprazole*) 40 Mg Tablet.dr, 40 MG PO AC BREAKFAST, TAB 08/22/18 Oxycodone Hcl* (Oxycontin*) 20 Mg Tab.er.12h, 20 MG PO Q12, TAB 08/22/18 Amlodipine Besylate* (Norvasc*) 5 Mg Tablet, 5 MG PO DAILY, TAB HOLD FOR SBP <110. 08/22/18 Polyethylene Glycol* (Miralax*) 17 Gm Powd.pack, 17 GM PO DAILY, #60 PACKET 08/22/18 Magnesium Hydroxide* (Milk Of Magnesia*) 400 Mg/5 Ml Oral.susp, 30 ML PO DAILY, ML 08/22/18 Escitalopram Oxalate* (Lexapro*) 10 Mg Tablet, 10 MG PO DAILY, #30 TAB 08/22/18 Docusate Sodium* (Colace*) 100 Mg Capsule, 100 MG PO BID, #60 CAP 08/22/18 Carvedilol* (Carvedilol*) 3.125 Mg Tablet, 3.125 MG PO BID, #60 TAB HOLD FOR SBP <110 OR ME <60. GIVE WITH FOOD. 08/22/18 Benazepril Hcl* (Benazepril Hcl*) 5 Mg Tablet, 5 MG PO DAILY, #60 TAB HOLD FOR SBP <110. 08/22/18 Anastrozole* (Arimidex*) 1 Mg Tablet, 1 MG PO DAILY, #30 TAB 08/22/18 Medications Current Medications Acetaminophen (Tylenol Tab) 650 mg Q4H PRN PO PAIN LEVEL 1-10 Last administered on 10/29/18at 17:15; Admin Dose 650 MG; Start 10/21/18 at 23:30 Anastrozole (Arimidex) 1 mg DAILY PO Last administered on 11/02/18at 08:42; Admin Dose 1 MG; Start 10/22/18 at 09:00 Benazepril HCl (Lotensin) 5 mg DAILY PO Last administered on 10/30/18at 09:27; Admin Dose 5 MG; Start 10/22/18 at 09:00; Status Hold Bisacodyl (Dulcolax Supp) 10 mg Q8 ME Last administered on 10/31/18at 16:42; Admin Dose 10 MG; Start 10/22/18 at 06:00 Carvedilol (Coreg) 3.125 mg BID PO Last administered on 11/02/18at 08:38; Admin Dose 3.125 MG; Start 10/22/18 at 09:00 Docusate Sodium (Colace) 100 mg BID PO Last administered on 11/02/18at 08:37; A dmin Dose 100 MG; Start 10/22/18 at 09:00 Escitalopram Oxalate (Lexapro) 10 mg DAILY PO Last administered on 11/02/18at 08:39; Admin Dose 10 MG; Start 10/22/18 at 09:00 Albuterol/ Ipratropium (Duoneb) 3 ml Q8H RESP THERAPY HHN Last administered on 11/02/18 08:49; Admin Dose 3 ML; Start 10/22/18 at 00:00 Loratadine (Claritin) 10 mg DAILY PO Last administered on 11/02/18 08:39; Admin Dose 10 MG; Start 10/22/18 at 09:00 Magnesium Hydroxide (Milk Of Mag) 30 ml DAILY PO Last administered on 10/31/18 10:16; Admin Dose 30 ML; Start 10/22/18 at 09:00 Oxycodone HCl (Oxycontin) 20 mg Q12 PO Last administered on 11/02/18 08:42; Admin Dose 20 MG; Start 10/22/18 at 09:00 Pantoprazole (Protonix Tab) 40 mg AC BREAKFAST PO Last administered on 11/02/18 06:36; Admin Dose 40 MG; Start 10/22/18 at 07:25 Polyethylene Glycol (Miralax) 17 gm DAILY PO Last administered on 10/31/18 10:16; Admin Dose 17 GM; Start 10/22/18 at 09:00 Simethicone (Mylicon) 80 mg Q8H PO Last administered on 11/01/18 10:00; Admin Dose 80 MG; Start 10/21/18 at 23:30 Spironolactone (Aldactone) 50 mg DAILY PO Last administered on 11/02/18 08:36; Admin Dose 50 MG; Start 10/22/18 at 09:00 Zolpidem Tartrate (Ambien) 10 mg HS PRN PO INSOMNIA Last administered on 10/22/18 21:20; Admin Dose 10 MG; Start 10/21/18 at 23:30 Morphine Sulfate (morphine) 2 mg Q4H PRN IV SEVERE PAIN LEVEL 7-10 Last administered on 10/23/18 14:15; Admin Dose 2 MG; Start 10/22/18 at 01:30 Potassium Chloride (Klor-Con 20) 20 meq BID PO Last administered on 11/02/18 08:38; Admin Dose 20 MEQ; Start 10/22/18 at 13:00; Stop 11/02/18 at 21:01 Phenol (Cepastat Lozenge) 1 lozenge Q1H PRN MT sore throat Last administered on 10/31/18 18:34; Admin Dose 1 LOZENGE; Start 10/27/18 at 21:30 Fluticasone Propionate (Flonase 0.05% Nasal) 1 spray BID NASAL Last administered on 10/31/18 21:20; Admin Dose 1 SPRAY; Start 10/29/18 at 21:00 Budesonide (Pulmicort (Neb)) 0.5 mg BID RESP THERAPY HHN Last administered on 11/02/18 08:51; Admin Dose 0.5 MG; Start 10/30/18 at 09:00 Oseltamivir Phosphate (Tamiflu) 150 mg BID PO Last administered on 11/02/18 0 8:37; Admin Dose 150 MG; Start 10/31/18 at 11:30; Stop 11/04/18 at 09:00 Metolazone (Zaroxolyn) 2.5 mg BID@0530,1730 PO Last administered on 11/02/18 05:57; Admin Dose 2.5 MG; Start 11/01/18 at 05:30 Furosemide (Lasix) 40 mg BID DIURETICS IV Last administered on 11/02/18 06:36; Admin Dose 40 MG; Start 11/01/18 at 18:00 Guaifenesin/ Codeine Phosphate (Robitussin Ac Liquid Cup) 10 ml Q4 PO Last administered on 11/02/18at 13:37; Admin Dose 10 ML; Start 11/02/18 at 09:00 Enoxaparin Sodium (Lovenox) 40 mg DAILY SC Last administered on 11/02/18at 10:46; Admin Dose 40 MG; Start 11/02/18 at 09:00 Potassium Chloride (Klor-Con 10) 10 meq BID PO ; Start 11/03/18 at 09:00 Assessment/Plan Hospital Course (Demo Recall) 1. Congestive heart failure exacerbation would be diastolic, acute on chronic by most recent echo.-now s/p echo this admit with EF 60/small effusion - better now, responding to diuresis. BETTER overall- very robust urine output - improved CHF. Overall stable. Responded well. 2. Abnormal electrocardiogram with low voltage, rule out pericardial effusion - stable, no signs of tamponade. Treated. Off tele now. NO intervetion palnned. 3. Hypertension-currently borderline hypotension - treated with meds. BP stable overall. 4. Metastatic breast carcinoma- responded to chemo per Dr. Fernández - still poor prognosis. 5. History of pathologic fractures of the leg, status post open reduction and internal fixation - pain controlled. 6. Anemia =- Rx per hem-onc team. 7. Increased BNP consistent with patient's congestive heart failure. 8. Pericardial effusion-small by echo 8. Cough - con't anti-bx now. EMILY NELSON MD November 02, 2018 14:05
[2018-11-02 14:57] VITALS: BP 93/56; PULSE 85; RESP 14
--- NOTE | 2018-11-02 18:02 | CONS ---
Assessment/Plan Assessment/Plan Hospital Course (Demo Recall) METASTATIC BREAST CANCER WITH PRIMARY ADENOCARCINOMA IN the left breast. MULTIPLE BONY METS, PULMONARY METS, LIVER METS CHEMO ON HOLD PT HAS A VERY GOOD RESPONSE TO CHEMO AND AI CONT AI FOR NOW CT ABD FOR RESTAGING 08.27.18- noted , stable Leukopenia- post chemo, FLUCTUATING WITH RECENT WORSENING- post NEUPOGEN monitor closely post Neutropenia with occasional fever and chills. - resolved Anemia chronic disease SOB PLEURAL EFFUSIONS, NEG CYTOLOGY POST thoracentesis Fluid overload diuretic cardiology F-UP Severe pain in the interscapular and lumbar sacral area most probably metastatic lesion possible femoral fracture. pathologic fracture of T9 with 60% of loss of height. Bony pain with multiple bony mets post XRT will d/w dr Ocampo Obesity. Weight loss 60 pounds during the last 2 years PMS. Myopia. Anxiety disorder. Claustrophobia. Posttraumatic stress disorder. Pain in the left forearm with a history of fracture of ulna and radius. Tachycardia Hypoxemia at night marginal improved after 2 L of nasal cannula oxygen. Deconditioning Pain syndrome. Today the most painful zone is in the right hip area. X-ray did not show any fractures. Hyponatremia- resolved Hypoalbuminemia Right sided cp after catheter insertion and correction less discomfort. Decreased edema both lower extremities with hypotension-improving Swelling of the left forearm-persist. Consultation Date/Type/Reason Admit Date/Time October 21, 2018 at 17:39 Initial Consult Date 10/21/18 Type of Consult [facility] Requesting Provider: RUSS JEROME MD Date/Time of Note DATE: 11/02/18 TIME: 18:02 24 HR Interval Summary Free Text/Dictation weak Exam/Review of Systems Exam Vitals Vital Signs Date Temp Pulse Resp B/P (MAP) Pulse Ox O2 O2 Flow FiO2 Time Delivery Rate 11/02/18 86 18 98 Nasal 2.0 16:53 Cannula 11/02/18 97.8 93/56 (68) 14:57 10/31/18 27 20:02 Intake and Output 11/01/18 11/01/18 11/02/18 1515:00 23:00 07:00 IntakeIntake Total 800 ml 770 ml 500 ml OutputOutput Total 400 ml 450 ml BalanceBalance 800 ml 370 ml 50 ml Exam HEENT: Head is normocephalic. NECK: Supple. HEART: Regular rate. LUNGS: Show diminished breath sounds at the base. ABDOMEN: Soft, nontender to palpation without rebound or guarding. EXTREMITIES: Negative for clubbing, cyanosis. Positive edema, improving. DERMATOLOGIC: No rashes. MUSCULOSKELETAL: No joint effusion. NEUROLOGIC: No change in exam. Results Result Diagram: 11/01/18 0422 11/02/18 0505 Results 24hrs Laboratory Tests Test 11/02/18 05:05 Sodium Level 135 Potassium Level 3.1 L Chloride Level 98 Carbon Dioxide Level 30 Anion Gap 7 Blood Urea Nitrogen 32 H Creatinine 0.90 Est Glomerular Filtrat Rate mL/min > 60 Glucose Level 102 Calcium Level 8.7 Phosphorus Level 5.1 H Magnesium Level 2.1 Medications Medication Current Medications Acetaminophen (Tylenol Tab) 650 mg Q4H PRN PO PAIN LEVEL 1-03/27 Last adminis tered on 10/29/18 17:15; Admin Dose 650 MG; Start 10/21/18 at 23:30 Anastrozole (Arimidex) 1 mg DAILY PO Last administered on 11/02/18 08:42; Admin Dose 1 MG; Start 10/22/18 at 09:00 Benazepril HCl (Lotensin) 5 mg DAILY PO Last administered on 10/30/18 09:27; Admin Dose 5 MG; Start 10/22/18 at 09:00; Status Hold Bisacodyl (Dulcolax Supp) 10 mg Q8 HI Last administered on 10/31/18 16:42; Admin Dose 10 MG; Start 10/22/18 at 06:00 Carvedilol (Coreg) 3.125 mg BID PO Last administered on 11/02/18at 08:38; Admin Dose 3.125 MG; Start 10/22/18 at 09:00 Docusate Sodium (Colace) 100 mg BID PO Last administered on 11/02/18 08:37; Admin Dose 100 MG; Start 10/22/18 at 09:00 Escitalopram Oxalate (Lexapro) 10 mg DAILY PO Last administered on 11/02/18at 08:39; Admin Dose 10 MG; Start 10/22/18 at 09:00 Albuterol/ Ipratropium (Duoneb) 3 ml Q8H RESP THERAPY HHN Last administered on 11/02/18at 16:43; Admin Dose 3 ML; Start 10/22/18 at 00:00 Loratadine (Claritin) 10 mg DAILY PO Last administered on 11/02/18 08:39; Admin Dose 10 MG; Start 10/22/18 at 09:00 Magnesium Hydroxide (Milk Of Mag) 30 ml DAILY PO Last administered on 10/31/18 10:16; Admin Dose 30 ML; Start 10/22/18 at 09:00 Oxycodone HCl (Oxycontin) 20 mg Q12 PO Last administered on 11/02/18 08:42; Admin Dose 20 MG; Start 10/22/18 at 09:00 Pantoprazole (Protonix Tab) 40 mg AC BREAKFAST PO Last administered on 11/02/18 06:36; Admin Dose 40 MG; Start 10/22/18 at 07:25 Polyethylene Glycol (Miralax) 17 gm DAILY PO Last administered on 10/31/18 10:16; Admin Dose 17 GM; Start 10/22/18 at 09:00 Simethicone (Mylicon) 80 mg Q8H PO Last administered on 11/01/18 10:00; Admin Dose 80 MG; Start 10/21/18 at 23:30 Spironolactone (Aldactone) 50 mg DAILY PO Last administered on 11/02/18 08:36; Admin Dose 50 MG; Start 10/22/18 at 09:00 Zolpidem Tartrate (Ambien) 10 mg HS PRN PO INSOMNIA Last administered on 10/22/18 21:20; Admin Dose 10 MG; Start 10/21/18 at 23:30 Morphine Sulfate (morphine) 2 mg Q4H PRN IV SEVERE PAIN LEVEL 7-10 Last a dministered on 10/23/18 14:15; Admin Dose 2 MG; Start 10/22/18 at 01:30 Potassium Chloride (Klor-Con 20) 20 meq BID PO Last administered on 11/02/18 08:38; Admin Dose 20 MEQ; Start 10/22/18 at 13:00; Stop 11/02/18 at 21:01 Phenol (Cepastat Lozenge) 1 lozenge Q1H PRN MT sore throat Last administered on 10/31/18 18:34; Admin Dose 1 LOZENGE; Start 10/27/18 at 21:30 Fluticasone Propionate (Flonase 0.05% Nasal) 1 spray BID NASAL Last administered on 10/31/18 21:20; Admin Dose 1 SPRAY; Start 10/29/18 at 21:00 Budesonide (Pulmicort (Neb)) 0.5 mg BID RESP THERAPY HHN Last administered on 11/02/18 08:51; Admin Dose 0.5 MG; Start 10/30/18 at 09:00 Oseltamivir Phosphate (Tamiflu) 150 mg BID PO Last administered on 11/02/18 08:37; Admin Dose 150 MG; Start 10/31/18 at 11:30; Stop 11/04/18 at 09:00 Metolazone (Zaroxolyn) 2.5 mg BID@6291,1370 PO Last administered on 11/02/18 17:50; Admin Dose 2.5 MG; Start 11/01/18 at 05:30 Furosemide (Lasix) 40 mg BID DIURETICS IV Last administered on 11/02/18 06:36; Admin Dose 40 MG; Start 11/01/18 at 18:00 Guaifenesin/ Codeine Phosphate (Robitussin Ac Liquid Cup) 10 ml Q4 PO Last administered on 11/02/18 17:48; Admin Dose 10 ML; Start 11/02/18 at 09:00 Enoxaparin Sodium (Lovenox) 40 mg DAILY SC Last administered on 11/02/18 10:46; Admin Dose 40 MG; Start 11/02/18 at 09:00 Potassium Chloride (Klor-Con 10) 10 meq BID PO ; Start 11/03/18 at 09:00 DES DUNAWAY MD November 02, 2018 18:02
[2018-11-02 19:15] VITALS: BP 126/72; PULSE 92; RESP 18
[2018-11-03] MEDS: ZOLPIDEM 5 MG TAB PO PRN (00:13)
[2018-11-03] MEDS: GUAIFENESIN/CODEINE 5ML CUP PO SCH ×6 (00:13→20:35)
[2018-11-03] MEDS: ALBUTEROL/IPRATROPIUM (NEB) 3 ML AMP HHN SCH ×3 (00:52→16:36)
[2018-11-03 02:07] VITALS: BP 110/62; PULSE 84; RESP 18
[2018-11-03] MEDS: METOLAZONE 2.5 MG TAB PO SCH ×2 (05:34→17:39)
[2018-11-03] MEDS: BISACODYL 10 MG SUPP PR SCH ×3 (06:00→21:49)
[2018-11-03] MEDS: PANTOPRAZOLE (EC) 40 MG TAB PO SCH (06:31)
[2018-11-03] MEDS: FUROSEMIDE 40 MG INJ IV SCH ×2 (06:32→17:40)
[2018-11-03 07:56] VITALS: BP 128/69; PULSE 88; RESP 16
[2018-11-03] MEDS ORDERED: POTASSIUM CHLORIDE (SR) 20 MEQ TAB PO STA (08:19)
[2018-11-03] MEDS: BUDESONIDE (NEB) 0.5MG/2ML AMP HHN SCH ×2 (08:51→21:04)
[2018-11-03] MEDS: MAGNESIUM HYDROXIDE 30ML CUP PO SCH (09:12)
[2018-11-03] MEDS: DOCUSATE SODIUM 100 MG CAP PO SCH ×2 (09:13→20:33)
[2018-11-03] MEDS: POLYETHYLENE GLYCOL 17 GM PACKET PO SCH (09:13)
[2018-11-03] MEDS: ESCITALOPRAM 10 MG TAB PO SCH (09:13)
[2018-11-03] MEDS: oxyCODONE (CR) 20 MG TAB [oxyCONTIN] PO SCH ×2 (09:13→20:35)
[2018-11-03] MEDS: OSELTAMIVIR 75 MG CAP PO SCH ×2 (09:13→20:33)
[2018-11-03] MEDS: POTASSIUM CHLORIDE (SR) 10 MEQ TAB PO SCH ×2 (09:13→20:33)
[2018-11-03] MEDS: SPIRONOLACTONE 50 MG TAB PO SCH (09:14)
[2018-11-03] MEDS: ANASTROZOLE 1 MG TAB PO SCH (09:15)
[2018-11-03] MEDS: ENOXAPARIN 40 MG/0.4 ML SYG SC SCH (09:16)
[2018-11-03] MEDS: LORATADINE 10 MG TAB PO SCH (09:16)
[2018-11-03] MEDS: FLUTICASONE 0.05% 16 GM NAS SPRAY NASAL SCH ×2 (09:17→20:35)
--- NOTE | 2018-11-03 12:08 | CONS ---
Consultation Date/Type/Reason Admit Date/Time October 21, 2018 at 17:39 Initial Consult Date 10/21/18 Type of Consult Cardiology Requesting Provider: RUSS JEROME MD Date/Time of Note DATE: 11/03/18 TIME: 12:07 24 HR Interval Summary Free Text/Dictation VS reviewed - stable Exam/Review of Systems Vital Signs Vitals Vital Signs Date Temp Pulse Resp B/P (MAP) Pulse Ox O2 O2 Flow FiO2 Time Delivery Rate 11/03/18 85 18 98 Nasal 2.0 09:00 Cannula 11/03/18 98.5 128/69 07:56 (88) 11/03/18 00:52 Intake and Output 11/02/18 11/02/18 11/03/18 1515:00 23:00 07:00 IntakeIntake Total 760 ml BalanceBalance 760 ml Labs Result Diagram: 11/01/18 0422 11/03/18 0432 Results 24hrs Laboratory Tests Test 11/03/18 04:32 Sodium Level 138 Potassium Level 3.3 L Chloride Level 96 L Carbon Dioxide Level 32 H Anion Gap 10 Blood Urea Nitrogen 27 H Creatinine 0.86 Est Glomerular Filtrat Rate mL/min > 60 Glucose Level 107 Calcium Level 8.5 Phosphorus Level 4.7 Magnesium Level 2.0 Total Bilirubin 0.5 Direct Bilirubin 0.00 Indirect Bilirubin 0.5 Aspartate Amino Transf (AST/SGOT) 27 Alanine Aminotransferase (ALT/SGPT) 24 Alkaline Phosphatase 69 Total Protein 6.3 Albumin 3.4 Globulin 2.90 Albumin/Globulin Ratio 1.17 Medications Medications Current Medications Acetaminophen (Tylenol Tab) 650 mg Q4H PRN PO PAIN LEVEL 1-10 Last ad ministered on 10/29/18at 17:15; Admin Dose 650 MG; Start 10/21/18 at 23:30 Anastrozole (Arimidex) 1 mg DAILY PO Last administered on 11/03/18at 09:15; Admin Dose 1 MG; Start 10/22/18 at 09:00 Benazepril HCl (Lotensin) 5 mg DAILY PO Last administered on 10/30/18at 09:27; Admin Dose 5 MG; Start 10/22/18 at 09:00; Status Hold Bisacodyl (Dulcolax Supp) 10 mg Q8 UT Last administered on 10/31/18at 16:42; A dmin Dose 10 MG; Start 10/22/18 at 06:00 Carvedilol (Coreg) 3.125 mg BID PO Last administered on 11/03/18 09:17; Admin Dose 3.125 MG; Start 10/22/18 at 09:00 Docusate Sodium (Colace) 100 mg BID PO Last administered on 11/03/18 09:13; Admin Dose 100 MG; Start 10/22/18 at 09:00 Escitalopram Oxalate (Lexapro) 10 mg DAILY PO Last administered on 11/03/18 09:13; Admin Dose 10 MG; Start 10/22/18 at 09:00 Albuterol/ Ipratropium (Duoneb) 3 ml Q8H RESP THERAPY HHN Last administered on 11/03/18 08:50; Admin Dose 3 ML; Start 10/22/18 at 00:00 Loratadine (Claritin) 10 mg DAILY PO Last administered on 11/03/18 09:16; Admin Dose 10 MG; Start 10/22/18 at 09:00 Magnesium Hydroxide (Milk Of Mag) 30 ml DAILY PO Last administered on 11/03/18 09:12; Admin Dose 30 ML; Start 10/22/18 at 09:00 Oxycodone HCl (Oxycontin) 20 mg Q12 PO Last administered on 11/03/18 09:13; Admin Dose 20 MG; Start 10/22/18 at 09:00 Pantoprazole (Protonix Tab) 40 mg AC BREAKFAST PO Last administered on 11/03/18 06:31; Admin Dose 40 MG; Start 10/22/18 at 07:25 Polyethylene Glycol (Miralax) 17 gm DAILY PO Last administered on 11/03/18 09:13; Admin Dose 17 GM; Start 10/22/18 at 09:00 Simethicone (Mylicon) 80 mg Q8H PO Last administered on 11/03/18 09:14; Admin Dose 80 MG; Start 10/21/18 at 23:30 Spironolactone (Aldactone) 50 mg DAILY PO Last administered on 11/03/18 09:14; Admin Dose 50 MG; Start 10/22/18 at 09:00 Zolpidem Tartrate (Ambien) 10 mg HS PRN PO INSOMNIA Last administered on 11/03/18 00:13; Admin Dose 10 MG; Start 10/21/18 at 23:30 Morphine Sulfate (morphine) 2 mg Q4H PRN IV SEVERE PAIN LEVEL 7-10 Last administered on 10/23/18 14:15; Admin Dose 2 MG; Start 10/22/18 at 01:30 Phenol (Cepastat Lozenge) 1 lozenge Q1H PRN MT sore throat Last administered on 10/31/18 18:34; Admin Dose 1 LOZENGE; Start 10/27/18 at 21:30 Fluticasone Propionate (Flonase 0.05% Nasal) 1 spray BID NASAL Last administer ed on 11/03/18 09:17; Admin Dose 1 SPRAY; Start 10/29/18 at 21:00 Budesonide (Pulmicort (Neb)) 0.5 mg BID RESP THERAPY HHN Last administered on 11/03/18 08:51; Admin Dose 0.5 MG; Start 10/30/18 at 09:00 Oseltamivir Phosphate (Tamiflu) 150 mg BID PO Last administered on 11/03/18 09:13; Admin Dose 150 MG; Start 10/31/18 at 11:30; Stop 11/04/18 at 09:00 Metolazone (Zaroxolyn) 2.5 mg BID@0530,1730 PO Last administered on 11/03/18 05:34; Admin Dose 2.5 MG; Start 11/01/18 at 05:30 Furosemide (Lasix) 40 mg BID DIURETICS IV Last administered on 11/03/18 06:32; Admin Dose 40 MG; Start 11/01/18 at 18:00 Guaifenesin/ Codeine Phosphate (Robitussin Ac Liquid Cup) 10 ml Q4 PO Last administered on 11/03/18 09:12; Admin Dose 10 ML; Start 11/02/18 at 09:00 Enoxaparin Sodium (Lovenox) 40 mg DAILY SC Last administered on 11/03/18 09:16; Admin Dose 40 MG; Start 11/02/18 at 09:00 Potassium Chloride (Klor-Con 10) 10 meq BID PO Last administered on 11/03/18 09:13; Admin Dose 10 MEQ; Start 11/03/18 at 09:00 EMILY NELSON MD November 03, 2018 12:08
--- NOTE | 2018-11-03 12:19 | PN ---
DATE: 11/03/2018 SUBJECTIVE: The patient is stable, no events overnight. Urinary output has been adequate. OBJECTIVE: VITAL SIGNS: Blood pressure is 128/69, pulse 88, respirations 16, temperature 98.5. HEENT: Head is normocephalic. NECK: Supple. HEART: Regular rate. LUNGS: Show diminished breath sounds at the base. ABDOMEN: Soft, nontender to palpation without rebound or guarding. EXTREMITIES: Negative for clubbing, cyanosis. Positive edema. DERMATOLOGIC: No rashes. MUSCULOSKELETAL: No joint effusion. NEUROLOGIC: No change in exam. MEDICATIONS: The patient's medications have been reviewed. LABORATORY DATA: Has been reviewed. ASSESSMENT AND PLAN: 1. Volume overload. Etiology secondary to diastolic heart failure, possible portal hypertension, qu estionable lymphogenic spread of cancer. The patient is currently on loop diuretics Metolazone and A ldactone. Patient's edema has marginally improved. Continue to monitor. Continue current treatment plan, monitor electrolytes and renal function closely. 3. Hypokalemia. Continue to replete with potassium chloride. Continue Aldactone. 4. Nonoliguric acute kidney injury with previously normal baseline creatinine. Etiology is secondar y to hemodynamics. Renal function is improved. Continue to monitor. 5. Alkalosis. Will give intermittent Diamox as needed. 6. Mineral bone disorder, monitor calcium and phosphorus levels. 7. Breast cancer with metastasis to the liver and spine. Continue to monitor. Follow up with [facility]. 8. Hip fracture, status post arthroplasty. 9. Pleural effusion, status post thoracentesis. 10. Chronic pain syndrome. Continue current pain regimen. Dictated By: ANDRÉS YO/KEANU Conf#: [id number] DID#: [id number] CC: RUSS JEROME MD;*EndCC*
[2018-11-03 16:08] VITALS: BP 101/57; PULSE 81; RESP 14
[2018-11-03 20:33] VITALS: BP 109/65; PULSE 83; RESP 18
--- NOTE | 2018-11-03 22:46 | PN ---
Date/Time of Note Date/Time of Note DATE: 11/03/18 TIME: 22:43 Assessment/Plan VTE Prophylaxis Risk score (from Nsg)>0 risk: 18 SCD applied (from Ns): Yes SCD contraindicated: other Pharmacological prophylaxis: LMWH Lines/Catheters IV Catheter Type (from Nrsg): Peripheral IV Central line still needed: No Urinary Cath still in place: No Reason Cath still needed: urinary retention Assessment/Plan Assessment/Plan 1. PRIMARY ADENOCARCINOMA of the left breast. MULTIPLE BONY METS, PULMONARY METS;LIVER METS CHEMO ON HOLD; PT HAS A VERY GOOD RESPONSE TO CHEMO AND AI 2. Severe pain in the interscapular and lumbar sacral area most probably metastatic lesion possible femoral fracture. pathologic fracture of T9 with 60% of loss of height. Neurosurgical f/u. 3. Obesity. 4. Weight loss 60 pounds during the last 2 years by diet 5. PMS. 6. Myopia. 7. Anemia chronic disease with a drop of her hematocrit to 27; Latest results 28. Will recheck tomorrow;Leukopenia.Thrombocytopenia; 8. Anxiety disorder. Claustrophobia. Increase Ativan to 1 mg every 8 as needed at Lexapro 10 mg daily. 9. Posttraumatic stress disorder. 10. Pain in the left forearm with a history of fracture of ulna and radius. 11. Tachycardia 12. Hypoxemia at night marginal improved after 2 L of nasal cannula oxygen. 13. Deconditioning 14. 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 MRI: 09/28/18:diffuse osseous metastatic disease with multiple pathologic compression fractures at least involving the T4, T5, T7, T9 and T11 levels. There is likely mild cortical breakthrough at several levels resulting in mild central canal narrowing. No gross evidence of cord compression is seen.. 15. Pain syndrome. Today the most painful zone is in the right hip area. 16. Hyponatremia-corrected; hypokalemia now hyperkalemic 5.2 hold potassium p.o. today and hold Aldactone today.Recheck and sodium chloride daily with the dose to 4 mg today 17. Leucopenia-improved. 18. Neutropenia with occasional fever and chills. Last chemotherapy 5 days ago. 19. Hypoalbuminemia. 20.Right sided cp after catheter insertion and correction less discomfort. 21. Decreased edema both lower extremities with [id number] with Pleural and Pericardial effusion. 22. pain syndrome 23.bilateral pleural effusions ; s/p left thoracentesis, During the procedure the probe of the u/s was placed to the right side of the chest which showed only minimal amount of liquid on the right pleural cavity. Reaccumulation of the pleural fluid. Plan to tap from the right side tomorrow a.m. 24. Systolic over diastolic congestive heart failure with a right more than left lower extremity swelling with no DVT in latest venous Doppler. 25. Swelling of the left forearm-persist. Cellulitis of the left forearm with increased edema anteriorly.-Today it is less edematous 26. Pathologic fracture of the right hip;s/p hemiarthroplasty of right hip . 27. Dizziness 28. Chills. 29. Memory impairment. 30. Upper respiratory infection pharyngitis with dry cough. 31. Decreased voice with wheezing. Result Diagram: 11/01/18 0422 11/03/18 0432 Results 24hrs Laboratory Tests Test 11/03/18 04:32 Sodium Level 138 Potassium Level 3.3 L Chloride Level 96 L Carbon Dioxide Level 32 H Anion Gap 10 Blood Urea Nitrogen 27 H Creatinine 0.86 Est Glomerular Filtrat Rate mL/min > 60 Glucose Level 107 Calcium Level 8.5 Phosphorus Level 4.7 Magnesium Level 2.0 Total Bilirubin 0.5 Direct Bilirubin 0.00 Indirect Bilirubin 0.5 Aspartate Amino Transf (AST/SGOT) 27 Alanine Aminotransferase (ALT/SGPT) 24 Alkaline Phosphatase 69 Total Protein 6.3 Albumin 3.4 Globulin 2.90 Albumin/Globulin Ratio 1.17 Subjective 24 Hr Interval Summary Free Text/Dictation Cough decreased in intensity. Still I do have mild amount of sputum production. Chills coming and going. May breathe deeply there is a pain in the left more the right chest. Edema persists right leg and left upper extremity more prominent. Constitutional: chills, diaphoresis, poor po, requiring O2; No no complaints, No improved, No disoriented, No febrile, No requiring IVF, No other Eyes: pain, redness; No no complaints, No discharge, No visual change, No other ENT: No no complaints, No bleeding, No pain, No congestion, No discharge, No dysphagia, No sore throat, No other Respiratory: cough, pleuritic pain, shortness of breath; No no complaints, No pain, No sputum, No wheezing, No other Cardiovascular: edema, lightheadedness, orthopenea, palpitations, paroxysmal nocturnal dyspnea; No no complaints, No chest pain, No other Gastrointestinal: constipation, decreased appetite, flatus, nausea, passing stool; No no complaints, No pain, No blood, No diarrhea, No vomiting, No other Genitourinary: dysuria; No no complaints, No bleeding, No discharge, No flank pain, No hematuria, No other Musculoskeletal: back pain, bone/joint pain, neck pain; No no complaints, No restricted range of motion, No swelling, No other Skin: laceration, rash; No no complaints, No bruising, No erythema, No pruritis, No skin lesions, No other Neurologic: confusion, dizziness Endocrine: dry skin; No no complaints, No polyuria, No polydypsia, No temp intolerance, No other Lymphatic: tender nodes; No no complaints, No adenopathy, No lymphadema, No other Psychological: anxiety, confusion, depression; No no complaints, No nl mood/affect, No suicidal, No other Immunologic: No no complaints, No immunodeficiency, No pruritis, No rhinitis, No urticaria, No other Exam/Review of Systems Exam Vitals Vital Signs Date Temp Pulse Resp B/P (MAP) Pulse Ox O2 O2 Flow FiO2 Time Delivery Rate 11/03/18 74 18 92 21 21:04 11/03/18 98.7 109/65 Room Air 20:33 (80) 11/03/18 2.0 09:00 Intake and Output 11/02/18 11/02/18 11/03/18 1515:00 23:00 07:00 IntakeIntake Total 760 ml BalanceBalance 760 ml Constitutional: alert, oriented, well developed, distress; No non-verbal, No frail, No obese, No other Psych: anxiety, confusion, depression; No no complaints, No nl mood/affect, No suicidal, No other Head: normocephalic, atraumatic; No lacerations, No hematomas, No other Eyes: EOMI, nl lids, PERRL; No nl conjunctiva, No nl sclera, No icteric, No fundi, disc, No other ENMT: nl lips & teeth, nl nasal mucosa & septum, tympanic membranes; No nl external ears & nose, No mucosa pink and moist, No intubated, No other Neck: jvd, bruits, thyromegaly; No supple, No non-tender, No masses, No nuchal rigidity, No other Respiratory: clear to auscultation, congested cough, crackles/rales, diminished breath sounds (Left side more prominent in the right side.), respirations, wheezing, other; No normal air movement, No intercostal retraction, No labored breathing, No tactile fremitus Cardiovascular: nl pulses, bruits, edema, jugular venous distention (JVD); No regular rate and rhythm, No diastolic murmur, No gallop, No irregular rhythm, No murmurs/extra sounds, No rub, No systolic murmur, No S3, No S4, No other Gastrointestinal: soft, nl liver, spleen, ascites, bowel sounds; No non-tender, No distended, No firm, No hepatomegaly, No mass, No rebound or guarding, No splenomegaly, No surgical scars, No tender, No other Genitourinary - Female: No nl adnexae, No nl external genitalia, No CMT, No CVA tenderness, No uterus, No other Musculoskeletal: joint tenderness, muscle tone, muscle weakness; No nl extremities to inspection, No nl gait and stance, No range of motion, No spine non-tender, No swelling, No other Extremities: pitting pedal edema; No normal pulses, No calf tenderness, No cyanosis, No clubbing, No edema, No palpable cord, No tenderness, No other 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: AUTOMATION QA LEAD 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, confused, lethargic, numbness, unresponsive; No nl mental status, No nl speech, No nl strength, No DTR's symmetric, No focal weakness, No reflexes, No other Skin: nl turgor, diaphoresis; No rash or lesions, No ecchymosis, No laceration, No puncture, No other Lymph: No nl lymph nodes, No enlarged, No nontender, No other Results Results 24hrs Laboratory Tests Test 11/03/18 04:32 Sodium Level 138 Potassium Level 3.3 L Chloride Level 96 L Carbon Dioxide Level 32 H Anion Gap 10 Blood Urea Nitrogen 27 H Creatinine 0.86 Est Glomerular Filtrat Rate mL/min > 60 Glucose Level 107 Calcium Level 8.5 Phosphorus Level 4.7 Magnesium Level 2.0 Total Bilirubin 0.5 Direct Bilirubin 0.00 Indirect Bilirubin 0.5 Aspartate Amino Transf (AST/SGOT) 27 Alanine Aminotransferase (ALT/SGPT) 24 Alkaline Phosphatase 69 Total Protein 6.3 Albumin 3.4 Globulin 2.90 Albumin/Globulin Ratio 1.17 Medications Medication Current Medications Acetaminophen (Tylenol Tab) 650 mg Q4H PRN PO PAIN LEVEL 1-03/27 Last administered on 10/29/18 17:15; Admin Dose 650 MG; Start 10/21/18 at 23:30 Anastrozole (Arimidex) 1 mg DAILY PO Last administered on 11/03/18 09:15; Admin Dose 1 MG; Start 10/22/18 at 09:00 Benazepril HCl (Lotensin) 5 mg DAILY PO Last administered on 10/30/18 09:27; Admin Dose 5 MG; Start 10/22/18 at 09:00; Status Hold Bisacodyl (Dulcolax Supp) 10 mg Q8 AL Last administered on 10/31/18 16:42; Admin Dose 10 MG; Start 10/22/18 at 06:00 Carvedilol (Coreg) 3.125 mg BID PO Last administered on 11/03/18 20:34; Admin Dose 3.125 MG; Start 10/22/18 at 09:00 Docusate Sodium (Colace) 100 mg BID PO Last administered on 11/03/18 20:33; Admin Dose 100 MG; Start 10/22/18 at 09:00 Escitalopram Oxalate (Lexapro) 10 mg DAILY PO Last administered on 11/03/18 09:13; Admin Dose 10 MG; Start 10/22/18 at 09:00 Albuterol/ Ipratropium (Duoneb) 3 ml Q8H RESP THERAPY HHN Last administered on 11/03/18 16:36; Admin Dose 3 ML; Start 10/22/18 at 00:00 Loratadine (Claritin) 10 mg DAILY PO Last administered on 11/03/18 09:16; Admin Dose 10 MG; Start 10/22/18 at 09:00 Magnesium Hydroxide (Milk Of Mag) 30 ml DAILY PO Last administered on 11/03/18 09:12; Admin Dose 30 ML; Start 10/22/18 at 09:00 Oxycodone HCl (Oxycontin) 20 mg Q12 PO Last administered on 11/03/18 20:35; Admin Dose 20 MG; Start 10/22/18 at 09:00 Pantoprazole (Protonix Tab) 40 mg AC BREAKFAST PO Last administered on 11/03/18 06:31; Admin Dose 40 MG; Start 10/22/18 at 07:25 Polyethylene Glycol (Miralax) 17 gm DAILY PO Last administered on 11/03/18 09:13; Admin Dose 17 GM; Start 10/22/18 at 09:00 Simethicone (Mylicon) 80 mg Q8H PO Last administered on 11/03/18 09:14; Admin Dose 80 MG; Start 10/21/18 at 23:30 Spironolactone (Aldactone) 50 mg DAILY PO Last administered on 11/03/18 09:14; Admin Dose 50 MG; Start 10/22/18 at 09:00 Zolpidem Tartrate (Ambien) 10 mg HS PRN PO INSOMNIA Last administered on 11/03/18 00:13; Admin Dose 10 MG; Start 10/21/18 at 23:30 Morphine Sulfate (morphine) 2 mg Q4H PRN IV SEVERE PAIN LEVEL 7-10 Last administered on 10/23/18 14:15; Admin Dose 2 MG; Start 10/22/18 at 01:30 Phenol (Cepastat Lozenge) 1 lozenge Q1H PRN MT sore throat Last administered on 10/31/18 18:34; Admin Dose 1 LOZENGE; Start 10/27/18 at 21:30 Fluticasone Propionate (Flonase 0.05% Nasal) 1 spray BID NASAL Last administered on 11/03/18 20:35; Admin Dose 1 SPRAY; Start 10/29/18 at 21:00 Budesonide (Pulmicort (Neb)) 0.5 mg BID RESP THERAPY HHN Last administered on 11/03/18 21:04; Admin Dose 0.5 MG; Start 10/30/18 at 09:00 Oseltamivir Phosphate (Tamiflu) 150 mg BID PO Last administered on 11/03/18 20:33; Admin Dose 150 MG; Start 10/31/18 at 11:30; Stop 11/04/18 at 09:00 Metolazone (Zaroxolyn) 2.5 mg BID@0649,7840 PO Last administered on 11/03/18 17:39; Admin Dose 2.5 MG; Start 11/01/18 at 05:30 Furosemide (Lasix) 40 mg BID DIURETICS IV Last administered on 11/03/18at 17:40; Admin Dose 40 MG; Start 11/01/18 at 18:00 Guaifenesin/ Codeine Phosphate (Robitussin Ac Liquid Cup) 10 ml Q4 PO Last administered on 11/03/18at 20:35; Admin Dose 10 ML; Start 11/02/18 at 09:00 Enoxaparin Sodium (Lovenox) 40 mg DAILY SC Last administered on 11/03/18at 09:16; Admin Dose 40 MG; Start 11/02/18 at 09:00 Potassium Chloride (Klor-Con 10) 10 meq BID PO Last administered on 11/03/18at 20:33; Admin Dose 10 MEQ; Start 11/03/18 at 09:00 RUSS JEROME MD November 03, 2018 22:46
--- NOTE | 2018-11-03 22:58 | CONS ---
Assessment/Plan Assessment/Plan Hospital Course (Demo Recall) METASTATIC BREAST CANCER WITH PRIMARY ADENOCARCINOMA IN the left breast. MULTIPLE BONY METS, PULMONARY METS, LIVER METS CHEMO ON HOLD PT HAS A VERY GOOD RESPONSE TO CHEMO AND AI CONT AI FOR NOW CT ABD FOR RESTAGING 08.27.18- noted , stable Leukopenia- post chemo, FLUCTUATING WITH RECENT WORSENING- post NEUPOGEN monitor closely post Neutropenia with occasional fever and chills. - resolved Anemia chronic disease SOB PLEURAL EFFUSIONS, NEG CYTOLOGY POST thoracentesis Fluid overload diuretic cardiology F-UP Severe pain in the interscapular and lumbar sacral area most probably metastatic lesion possible femoral fracture. pathologic fracture of T9 with 60% of loss of height. Bony pain with multiple bony mets post XRT will d/w dr Ocampo Obesity. Weight loss 60 pounds during the last 2 years PMS. Myopia. Anxiety disorder. Claustrophobia. Posttraumatic stress disorder. Pain in the left forearm with a history of fracture of ulna and radius. Tachycardia Hypoxemia at night marginal improved after 2 L of nasal cannula oxygen. Deconditioning Pain syndrome. Today the most painful zone is in the right hip area. X-ray did not show any fractures. Hyponatremia- resolved Hypoalbuminemia Right sided cp after catheter insertion and correction less discomfort. Decreased edema both lower extremities with hypotension-improving Swelling of the left forearm-persist. Consultation Date/Type/Reason Admit Date/Time October 21, 2018 at 17:39 Initial Consult Date 10/21/18 Type of Consult [facility] Requesting Provider: RUSS JEROME MD Date/Time of Note DATE: 11/03/18 TIME: 22:58 24 HR Interval Summary Free Text/Dictation ALL NOTED Exam/Review of Systems Exam Vitals Vital Signs Date Temp Pulse Resp B/P (MAP) Pulse Ox O2 O2 Flow FiO2 Time Delivery Rate 11/03/18 74 18 92 21 21:04 11/03/18 98.7 109/65 Room Air 20:33 (80) 11/03/18 2.0 09:00 Intake and Output 11/02/18 11/02/18 11/03/18 1414:59 22:59 06:59 IntakeIntake Total 760 ml BalanceBalance 760 ml Exam HEENT: Head is normocephalic. NECK: Supple. HEART: Regular rate. LUNGS: Show diminished breath sounds at the base. ABDOMEN: Soft, nontender to palpation without rebound or guarding. EXTREMITIES: Negative for clubbing, cyanosis. Positive edema, improving. DERMATOLOGIC: No rashes. MUSCULOSKELETAL: No joint effusion. NEUROLOGIC: No change in exam. Results Result Diagram: 11/01/18 0422 11/03/18 0432 Results 24hrs Laboratory Tests Test 11/03/18 04:32 Sodium Level 138 Potassium Level 3.3 L Chloride Level 96 L Carbon Dioxide Level 32 H Anion Gap 10 Blood Urea Nitrogen 27 H Creatinine 0.86 Est Glomerular Filtrat Rate mL/min > 60 Glucose Level 107 Calcium Level 8.5 Phosphorus Level 4.7 Magnesium Level 2.0 Total Bilirubin 0.5 Direct Bilirubin 0.00 Indirect Bilirubin 0.5 Aspartate Amino Transf (AST/SGOT) 27 Alanine Aminotransferase (ALT/SGPT) 24 Alkaline Phosphatase 69 Total Protein 6.3 Albumin 3.4 Globulin 2.90 Albumin/Globulin Ratio 1.17 Medications Medication Current Medications Acetaminophen (Tylenol Tab) 650 mg Q4H PRN PO PAIN LEVEL 1-03/27 Last administered on 10/29/18 17:15; Admin Dose 650 MG; Start 10/21/18 at 23:30 Anastrozole (Arimidex) 1 mg DAILY PO Last administered on 11/03/18 09:15; Admin Dose 1 MG; Start 10/22/18 at 09:00 Benazepril HCl (Lotensin) 5 mg DAILY PO Last administered on 10/30/18 09:27; Admin Dose 5 MG; Start 10/22/18 at 09:00; Status Hold Bisacodyl (Dulcolax Supp) 10 mg Q8 MD Last administered on 10/31/18at 16:42; Admin Dose 10 MG; Start 10/22/18 at 06:00 Carvedilol (Coreg) 3.125 mg BID PO Last administered on 11/03/18 20:34; Admin Dose 3.125 MG; Start 10/22/18 at 09:00 Docusate Sodium (Colace) 100 mg BID PO Last administered on 11/03/18at 20:33; Admin Dose 100 MG; Start 10/22/18 at 09:00 Escitalopram Oxalate (Lexapro) 10 mg DAILY PO Last administered on 11/03/18at 09:13; Admin Dose 10 MG; Start 10/22/18 at 09:00 Albuterol/ Ipratropium (Duoneb) 3 ml Q8H RESP THERAPY HHN Last administered on 11/03/18 16:36; Admin Dose 3 ML; Start 10/22/18 at 00:00 Loratadine (Claritin) 10 mg DAILY PO Last administered on 11/03/18 09:16; Admin Dose 10 MG; Start 10/22/18 at 09:00 Magnesium Hydroxide (Milk Of Mag) 30 ml DAILY PO Last administered on 11/03/18 09:12; Admin Dose 30 ML; Start 10/22/18 at 09:00 Oxycodone HCl (Oxycontin) 20 mg Q12 PO Last administered on 11/03/18 20:35; Admin Dose 20 MG; Start 10/22/18 at 09:00 Pantoprazole (Protonix Tab) 40 mg AC BREAKFAST PO Last administered on 11/03/18 06:31; Admin Dose 40 MG; Start 10/22/18 at 07:25 Polyethylene Glycol (Miralax) 17 gm DAILY PO Last administered on 11/03/18 09:13; Admin Dose 17 GM; Start 10/22/18 at 09:00 Simethicone (Mylicon) 80 mg Q8H PO Last administered on 11/03/18 09:14; Admin Dose 80 MG; Start 10/21/18 at 23:30 Spironolactone (Aldactone) 50 mg DAILY PO Last administered on 11/03/18 09:14; Admin Dose 50 MG; Start 10/22/18 at 09:00 Zolpidem Tartrate (Ambien) 10 mg HS PRN PO INSOMNIA Last administered on 00:13; Admin Dose 10 MG; Start 10/21/18 at 23:30 Morphine Sulfate (morphine) 2 mg Q4H PRN IV SEVERE PAIN LEVEL 7-10 Last administered on 10/23/18 14:15; Admin Dose 2 MG; Start 10/22/18 at 01:30 Phenol (Cepastat Lozenge) 1 lozenge Q1H PRN MT sore throat Last administered on 10/31/18 18:34; Admin Dose 1 LOZENGE; Start 10/27/18 at 21:30 Fluticasone Propionate (Flonase 0.05% Nasal) 1 spray BID NASAL Last administered on 11/03/18 20:35; Admin Dose 1 SPRAY; Start 10/29/18 at 21:00 Budesonide (Pulmicort (Neb)) 0.5 mg BID RESP THERAPY HHN Last administered on 11/03/18 21:04; Admin Dose 0.5 MG; Start 10/30/18 at 09:00 Oseltamivir Phosphate (Tamiflu) 150 mg BID PO Last administered on 11/03/18 20:33; Admin Dose 150 MG; Start 10/31/18 at 11:30; Stop 11/04/18 at 09:00 Metolazone (Zaroxolyn) 2.5 mg BID@0530,1730 PO Last administered on 11/03/18 17:39; Admin Dose 2.5 MG; Start 11/01/18 at 05:30 Furosemide (Lasix) 40 mg BID DIURETICS IV Last administered on 11/03/18 17:40; Admin Dose 40 MG; Start 11/01/18 at 18:00 Guaifenesin/ Codeine Phosphate (Robitussin Ac Liquid Cup) 10 ml Q4 PO Last administered on 11/03/18 20:35; Admin Dose 10 ML; Start 11/02/18 at 09:00 Enoxaparin Sodium (Lovenox) 40 mg DAILY SC Last administered on 11/03/18 09:16; Admin Dose 40 MG; Start 11/02/18 at 09:00 Potassium Chloride (Klor-Con 10) 10 meq BID PO Last administered on 11/03/18 20:33; Admin Dose 10 MEQ; Start 11/03/18 at 09:00 DES DUNAWAY MD November 03, 2018 22:58
[2018-11-04] MEDS: GUAIFENESIN/CODEINE 5ML CUP PO SCH ×6 (00:09→21:57)
[2018-11-04] MEDS: ZOLPIDEM 5 MG TAB PO PRN ×2 (00:12→23:51)
[2018-11-04] MEDS: ALBUTEROL/IPRATROPIUM (NEB) 3 ML AMP HHN SCH ×4 (00:14→22:10)
[2018-11-04 01:58] VITALS: BP 107/65; PULSE 85; RESP 18
[2018-11-04] MEDS: METOLAZONE 2.5 MG TAB PO SCH ×3 (05:35→17:19)
[2018-11-04] MEDS: BISACODYL 10 MG SUPP PR SCH ×3 (06:00→22:00)
[2018-11-04] MEDS: PANTOPRAZOLE (EC) 40 MG TAB PO SCH (06:18)
[2018-11-04] MEDS: FUROSEMIDE 40 MG INJ IV SCH (06:18)
[2018-11-04] MEDS: BUDESONIDE (NEB) 0.5MG/2ML AMP HHN SCH ×2 (08:09→21:50)
[2018-11-04 08:11] VITALS: BP 112/62; PULSE 82; RESP 19
[2018-11-04] MEDS ORDERED: POTASSIUM CHLORIDE (SR) 20 MEQ TAB PO STA (08:20)
[2018-11-04] MEDS: DOCUSATE SODIUM 100 MG CAP PO SCH ×2 (08:57→21:56)
[2018-11-04] MEDS: oxyCODONE (CR) 20 MG TAB [oxyCONTIN] PO SCH ×2 (08:57→21:57)
[2018-11-04] MEDS: POTASSIUM CHLORIDE (SR) 10 MEQ TAB PO SCH ×2 (08:57→21:56)
[2018-11-04] MEDS: ESCITALOPRAM 10 MG TAB PO SCH (08:57)
[2018-11-04] MEDS: LORATADINE 10 MG TAB PO SCH (08:58)
[2018-11-04] MEDS: MAGNESIUM HYDROXIDE 30ML CUP PO SCH (08:58)
[2018-11-04] MEDS: OSELTAMIVIR 75 MG CAP PO SCH (08:58)
[2018-11-04] MEDS: POLYETHYLENE GLYCOL 17 GM PACKET PO SCH (08:58)
[2018-11-04] MEDS: SPIRONOLACTONE 50 MG TAB PO SCH (08:58)
[2018-11-04] MEDS: FLUTICASONE 0.05% 16 GM NAS SPRAY NASAL SCH ×2 (08:59→21:00)
[2018-11-04] MEDS: ANASTROZOLE 1 MG TAB PO SCH (09:00)
[2018-11-04] MEDS: ENOXAPARIN 40 MG/0.4 ML SYG SC SCH (09:01)
--- NOTE | 2018-11-04 09:12 | PN ---
DATE: 11/04/2018 SUBJECTIVE: The patient is stable. No events overnight. Patient's swelling is improving. OBJECTIVE: VITAL SIGNS: Blood pressure is 107/65, respiration 18, pulse 85, temperature 98.2. HEENT: Head is normocephalic. NECK: Supple. HEART: Regular rate. LUNGS: Show diminished breath sounds at the base. ABDOMEN: Soft, nontender to palpation without rebound or guarding. EXTREMITIES: Negative for clubbing, cyanosis, positive edema. DERMATOLOGIC: No rashes. MUSCULOSKELETAL: No joint effusion. NEUROLOGIC: No change in exam. MEDICATIONS: Have been reviewed. LABORATORY DATA: Has been reviewed. ASSESSMENT AND PLAN: 1. Volume overload. Etiology secondary to diastolic heart failure, questionable portal hypertension , questionable lymphogenic spread of cancer. The patient is currently on loop diuretics, metolazone and Aldactone. The patient is becoming more alkalotic. We will continue current diuretic regimen. We will hold loop diuretics, start the patient on metolazone and monitor closely. 2. Hypokalemia. Continue to monitor, continue Aldactone. Continue to replete potassium chloride. 3. Nonoliguric acute kidney injury with previously normal baseline creatinine. Etiology secondary t o hemodynamics. Renal function is improved. Continue to monitor. 4. Alkalosis. The patient will be given Diamox. 5. Mineral bone disorder. Monitor calcium and phosphorus levels. 6. Breast cancer with metastasis to the liver and spine. Continue to monitor. Follow up with [facility]. 7. Hip fracture, status post arthroplasty. 8. Pleural effusion, status post thoracentesis. 9. Chronic pain syndrome. Dictated By: ANDRÉS YO/KEANU Conf#: [id number] DID#: [id number] CC: RUSS JEROME MD;*EndCC*
[2018-11-04] MEDS: ACETAZOLAMIDE 500 MG INJ IV SCH (09:27)
--- NOTE | 2018-11-04 12:42 | CONS ---
Assessment/Plan Assessment/Plan Hospital Course (Demo Recall) IMPRESSION: 1. Congestive heart failure exacerbation would be diastolic, acute on chronic by most recent echo.-now s/p echo this admit with EF 60/small effusion 2. Abnormal electrocardiogram with low voltage, rule out pericardial effusion. 3. Hypertension-currently borderline hypotension 4. Metastatic breast carcinoma. 5. History of pathologic fractures of the leg, status post open reduction and internal fixation. 6. Anemia. 7. Increased BNP consistent with patient's congestive heart failure. 8. Pericardial effusion-small by echo Recc: -Tele -Lasix held and patient placed on diamox with metolazone and aldactone -Consider additional IV albumin doses -Continue current coreg as tolerated only and continue to hold benazepril at this time and follow BP clsoely -follow K clsoely -check repeat venous RAMÍREZ given assymetric LE edema Consultation Date/Type/Reason Admit Date/Time October 21, 2018 at 17:39 Initial Consult Date 10/21/18 Type of Consult Cardiology Reason for Consultation CHF Requesting Provider: RUSS JEROME MD Date/Time of Note DATE: 11/04/18 TIME: 12:39 Exam/Review of Systems Vital Signs Vitals Vital Signs Date Temp Pulse Resp B/P (MAP) Pulse Ox O2 O2 Flow FiO2 Time Delivery Rate 11/04/18 98.2 82 19 112/62 94 08:11 (79) 11/04/18 21 08:09 11/04/18 Nasal 2.0 08:00 Cannula Intake and Output 11/03/18 11/03/18 11/04/18 1515:00 23:00 07:00 IntakeIntake Total 250 ml 300 ml 350 ml BalanceBalance 250 ml 300 ml 350 ml Exam Exam Review of Systems: CONSTITUTIONAL: No fevers, chills. PULMONARY: No sob CARDIOVASCULAR: No chest pain/palpitations GASTROINTESTINAL: No nausea/vomiting. GENITOURINARY: No hematuria/dysuria. MUSCULOSKELETAL: No myagias/arthalgias. PSYCHIATRIC: The patient denies depression. NEUROLOGIC: mild generalized weakness Constitutional: alert, oriented Psych: no complaints Head: normocephalic ENMT: mucosa pink and moist Neck: supple, jvd (9 cm water) Respiratory: diminished breath sounds (at bases/B) Cardiovascular: regular rate and rhythm Gastrointestinal: soft, non-tender Musculoskeletal: muscle weakness (generalized) Extremities: pitting pedal edema (R>L) 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: other (No focal deficits) Labs Result Diagram: 11/01/18 0422 11/04/18 0533 Results 24hrs Laboratory Tests Test 11/04/18 05:33 Sodium Level 136 Potassium Level 3.3 L Chloride Level 93 L Carbon Dioxide Level 37 H Anion Gap 6 Blood Urea Nitrogen 26 H Creatinine 0.83 Est Glomerular Filtrat Rate mL/min > 60 Glucose Level 101 Calcium Level 8.7 Phosphorus Level 4.5 Magnesium Level 2.2 Medications Medications Current Medications Acetaminophen (Tylenol Tab) 650 mg Q4H PRN PO PAIN LEVEL 1-03/27 Last administered on 10/29/18 17:15; Admin Dose 650 MG; Start 10/21/18 at 23:30 Anastrozole (Arimidex) 1 mg DAILY PO Last administered on 11/04/18 09:00; Admin Dose 1 MG; Start 10/22/18 at 09:00 Benazepril HCl (Lotensin) 5 mg DAILY PO Last administered on 10/30/18 09:27; Admin Dose 5 MG; Start 10/22/18 at 09:00; Status Hold Bisacodyl (Dulcolax Supp) 10 mg Q8 [place] Last administered on 10/31/18 16:42; Admin Dose 10 MG; Start 10/22/18 at 06:00 Carvedilol (Coreg) 3.125 mg BID PO Last administered on 11/04/18 08:59; Admin Dose 3.125 MG; Start 10/22/18 at 09:00 Docusate Sodium (Colace) 100 mg BID PO Last administered on 11/04/18 08:57; Admin Dose 100 MG; Start 10/22/18 at 09:00 Escitalopram Oxalate (Lexapro) 10 mg DAILY PO Last administered on 11/04/18 08:57; Admin Dose 10 MG; Start 10/22/18 at 09:00 Albuterol/ Ipratropium (Duoneb) 3 ml Q8H RESP THERAPY HHN Last administered on 11/04/18 08:09; Admin Dose 3 ML; Start 10/22/18 at 00:00 Loratadine (Claritin) 10 mg DAILY PO Last administered on 11/04/18 08:58; Admin Dose 10 MG; Start 10/22/18 at 09:00 Magnesium Hydroxide (Milk Of Mag) 30 ml DAILY PO Last administered on 11/04/18 08:58; Admin Dose 30 ML; Start 10/22/18 at 09:00 Oxycodone HCl (Oxycontin) 20 mg Q12 PO Last administered on 11/04/18 08:57; Admin Dose 20 MG; Start 10/22/18 at 09:00 Pantoprazole (Protonix Tab) 40 mg AC BREAKFAST PO Last administered on 11/04/18 06:18; Admin Dose 40 MG; Start 10/22/18 at 07:25 Polyethylene Glycol (Miralax) 17 gm DAILY PO Last administered on 11/04/18 08:58; Admin Dose 17 GM; Start 10/22/18 at 09:00 Simethicone (Mylicon) 80 mg Q8H PO Last administered on 11/04/18 08:58; Admin Dose 80 MG; Start 10/21/18 at 23:30 Spironolactone (Aldactone) 50 mg DAILY PO Last administered on 11/04/18 08:58; Admin Dose 50 MG; Start 10/22/18 at 09:00 Zolpidem Tartrate (Ambien) 10 mg HS PRN PO INSOMNIA Last administered on 11/04/18 00:12; Admin Dose 10 MG; Start 10/21/18 at 23:30 Morphine Sulfate (morphine) 2 mg Q4H PRN IV SEVERE PAIN LEVEL 7-10 Last administered on 10/23/18 14:15; Admin Dose 2 MG; Start 10/22/18 at 01:30 Phenol (Cepastat Lozenge) 1 lozenge Q1H PRN MT sore throat Last administered on 10/31/18 18:34; Admin Dose 1 LOZENGE; Start 10/27/18 at 21:30 Fluticasone Propionate (Flonase 0.05% Nasal) 1 spray BID NASAL Last administered on 11/04/18 08:59; Admin Dose 1 SPRAY; Start 10/29/18 at 21:00 Budesonide (Pulmicort (Neb)) 0.5 mg BID RESP THERAPY HHN Last administered on 11/04/18 08:09; Admin Dose 0.5 MG; Start 10/30/18 at 09:00 Metolazone (Zaroxolyn) 2.5 mg BID@3830,1730 PO Last administered on 11/04/18 05:35; Admin Dose 2.5 MG; Start 11/01/18 at 05:30 Furosemide (Lasix) 40 mg BID DIURETICS IV Last administered on 11/04/18 06:18; Admin Dose 40 MG; Start 11/01/18 at 18:00; Status Hold Guaifenesin/ Codeine Phosphate (Robitussin Ac Liquid Cup) 10 ml Q4 PO Last administered on 11/04/18 09:26; Admin Dose 10 ML; Start 11/02/18 at 09:00 Enoxaparin Sodium (Lovenox) 40 mg DAILY [place] Last administered on 11/04/18 09:01; Admin Dose 40 MG; Start 11/02/18 at 09:00 Potassium Chloride (Klor-Con 10) 10 meq BID PO Last administered on 11/04/18 08:57; Admin Dose 10 MEQ; Start 11/03/18 at 09:00 Acetazolamide (Diamox) 500 mg DAILY IV Last administered on 11/04/18 09:27; Admin Dose 500 MG; Start 11/04/18 at 09:00 KAMILA TERESA November 04, 2018 12:42
--- NOTE | 2018-11-04 14:38 | PN ---
Date/Time of Note Date/Time of Note DATE: 11/04/18 TIME: 14:34 Assessment/Plan VTE Prophylaxis Risk score (from Nsg)>0 risk: 13 SCD applied (from Nsg): Yes SCD contraindicated: other (on.) Pharmacological prophylaxis: LMWH Lines/Catheters IV Catheter Type (from Nrsg): port-a-cath Central line still needed: No Urinary Cath still in place: No Assessment/Plan Assessment/Plan 1. PRIMARY ADENOCARCINOMA of the left breast. MULTIPLE BONY METS, PULMONARY METS;LIVER METS CHEMO ON HOLD; PT HAS A VERY GOOD RESPONSE TO CHEMO AND AI 2. Severe pain in the interscapular and lumbar sacral area most probably metastatic lesion possible femoral fracture. pathologic fracture of T9 with 60% of loss of height. Neurosurgical f/u. 3. Obesity. 4. Weight loss 60 pounds during the last 2 years by diet 5. PMS. 6. Myopia. 7. Anemia chronic disease with a drop of her hematocrit to 27; Latest results 28. Will recheck tomorrow;Leukopenia.Thrombocytopenia; 8. Anxiety disorder. Claustrophobia. Increase Ativan to 1 mg every 8 as needed at Lexapro 10 mg daily. 9. Posttraumatic stress disorder. 10. Pain in the left forearm with a history of fracture of ulna and radius. 11. Tachycardia 12. Hypoxemia at night marginal improved after 2 L of nasal cannula oxygen. 13. Deconditioning 14. 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 MRI: 09/28/18:diffuse osseous metastatic disease with multiple pathologic compression fractures at least involving the T4, T5, T7, T9 and T11 levels. There is likely mild cortical breakthrough at several levels resulting in mild central canal narrowing. No gross evidence of cord compression is seen.. 15. Pain syndrome. Today the most painful zone is in the right hip area. 16. Hyponatremia-corrected; hypokalemia now hyperkalemic 5.2 hold potassium p.o. today and hold Aldactone today.Recheck and sodium chloride daily with the dose to 4 mg today 17. Leucopenia-improved. 18. Neutropenia with occasional fever and chills. Last chemotherapy 5 days ago. 19. Hypoalbuminemia. 20.Right sided cp after catheter insertion and correction less discomfort. 21. Decreased edema both lower extremities with [id number] with Pleural and Pericardial effusion. 22. pain syndrome 23.bilateral pleural effusions ; s/p left thoracentesis, During the procedure the probe of the u/s was placed to the right side of the chest which showed only minimal amount of liquid on the right pleural cavity. Reaccumulation of the pleural fluid. Plan to tap from the right side tomorrow a.m. 24. Systolic over diastolic congestive heart failure with a right more than left lower extremity swelling with no DVT in latest venous Doppler. 25. Swelling of the left forearm-persist. Cellulitis of the left forearm with increased edema anteriorly.-Today it is less edematous 26. Pathologic fracture of the right hip;s/p hemiarthroplasty of right hip . 27. Dizziness 28. Chills. 29. Memory impairment. 30. Upper respiratory infection pharyngitis with dry cough. 31. Decreased voice with wheezing. Result Diagram: 11/01/18 0422 11/04/18 0533 Results 24hrs Laboratory Tests Test 11/04/18 05:33 Sodium Level 136 Potassium Level 3.3 L Chloride Level 93 L Carbon Dioxide Level 37 H Anion Gap 6 Blood Urea Nitrogen 26 H Creatinine 0.83 Est Glomerular Filtrat Rate mL/min > 60 Glucose Level 101 Calcium Level 8.7 Phosphorus Level 4.5 Magnesium Level 2.2 Subjective 24 Hr Interval Summary Free Text/Dictation cough with sputum production. Constitutional: chills, diaphoresis, poor po, requiring O2; No no complaints, No improved, No disoriented, No febrile, No requiring IVF, No other Eyes: discharge; No no complaints, No pain, No redness, No visual change, No other ENT: congestion, sore throat; No no complaints, No bleeding, No pain, No discharge, No dysphagia, No other Respiratory: cough, pleuritic pain, shortness of breath; No no complaints, No pain, No sputum, No wheezing, No other Cardiovascular: edema, orthopenea, palpitations; No no complaints, No chest pain, No lightheadedness, No paroxysmal nocturnal dyspnea, No other Gastrointestinal: constipation, decreased appetite, flatus; No no complaints, No pain, No blood, No diarrhea, No nausea, No passing stool, No vomiting, No other Genitourinary: dysuria, flank pain; No no complaints, No bleeding, No discharge, No hematuria, No other Musculoskeletal: back pain; No no complaints, No bone/joint pain, No neck pain, No restricted range of motion, No swelling, No other Skin: bruising, pruritis, rash; No no complaints, No erythema, No laceration, No skin lesions, No other Neurologic: dizziness; No no complaints, No confusion, No focal-weakness, No headache, No syncope, No seizure, No other Endocrine: polydypsia; No no complaints, No polyuria, No dry skin, No temp intolerance, No other Lymphatic: tender nodes; No no complaints, No adenopathy, No lymphadema, No other Psychological: anxiety; No no complaints, No nl mood/affect, No confusion, No depression, No suic idal, No other Immunologic: No no complaints, No immunodeficiency, No pruritis, No rhinitis, No urticaria, No other Exam/Review of Systems Exam Vitals Vital Signs Date Temp Pulse Resp B/P (MAP) Pulse Ox O2 O2 Flow FiO2 Time Delivery Rate 11/04/18 98.2 82 19 112/62 94 08:11 (79) 11/04/18 21 08:09 11/04/18 Nasal 2.0 08:00 Cannula Intake and Output 11/03/18 11/03/18 11/04/18 1515:00 23:00 07:00 IntakeIntake Total 250 ml 300 ml 350 ml BalanceBalance 250 ml 300 ml 350 ml Constitutional: alert, oriented, well developed, distress, frail Psych: anxiety, confusion; No no complaints, No nl mood/affect, No depression, No suicidal, No other Head: atraumatic; No normocephalic, No lacerations, No hematomas, No other Eyes: EOMI, nl lids, PERRL; No nl conjunctiva, No nl sclera, No icteric, No fundi, disc, No other ENMT: nl lips & teeth, nl nasal mucosa & septum Neck: jvd, bruits, thyromegaly; No supple, No non-tender, No masses, No nuchal rigidity, No other Respiratory: congested cough, crackles/rales, diminished breath sounds, intercostal retraction, wheezing Cardiovascular: nl pulses, bruits, edema, murmurs/extra sounds, systolic murmur; No regular rate and rhythm, No diastolic murmur, No gallop, No irregular rhythm, No jugular venous distention (JVD), No rub, No S3, No S4, No other Gastrointestinal: soft, nl liver, spleen; No non-tender, No ascites, No bowel sounds, No distended, No firm, No hepatomegaly, No mass, No rebound or guarding, No splenomegaly, No surgical scars, No tender, No other Musculoskeletal: joint tenderness; No nl extremities to inspection, No nl gait and stance, No muscle tone, No muscle weakness, No range of motion, No spine non-tender, No swelling, No other Results Results 24hrs Laboratory Tests Test 11/04/18 05:33 Sodium Level 136 Potassium Level 3.3 L Chloride Level 93 L Carbon Dioxide Level 37 H Anion Gap 6 Blood Urea Nitrogen 26 H Creatinine 0.83 Est Glomerular Filtrat Rate mL/min > 60 Glucose Level 101 Calcium Level 8.7 Phosphorus Level 4.5 Magnesium Level 2.2 Medications Medication Current Medications Acetaminophen (Tylenol Tab) 650 mg Q4H PRN PO PAIN LEVEL 1-10/10 Last administered on 10/29/18 17:15; Admin Dose 650 MG; Start 10/21/18 at 23:30 Anastrozole (Arimidex) 1 mg DAILY PO Last administered on 11/04/18at 09:00; Admin Dose 1 MG; Start 10/22/18 at 09:00 Benazepril HCl (Lotensin) 5 mg DAILY PO Last administered on 10/30/18 09:27; Admin Dose 5 MG; Start 10/22/18 at 09:00; Status Hold Bisacodyl (Dulcolax Supp) 10 mg Q8 [place] Last administered on 10/31/18at 16:42; Admin Dose 10 MG; Start 10/22/18 at 06:00 Carvedilol (Coreg) 3.125 mg BID PO Last administered on 11/04/18at 08:59; Admin Dose 3.125 MG; Start 10/22/18 at 09:00 Docusate Sodium (Colace) 100 mg BID PO Last administered on 11/04/18 08:57; Admin Dose 100 MG; Start 10/22/18 at 09:00 Escitalopram Oxalate (Lexapro) 10 mg DAILY PO Last administered on 11/04/18 08:57; Admin Dose 10 MG; Start 10/22/18 at 09:00 Albuterol/ Ipratropium (Duoneb) 3 ml Q8H RESP THERAPY HHN Last administered on 11/04/18 08:09; Admin Dose 3 ML; Start 10/22/18 at 00:00 Loratadine (Claritin) 10 mg DAILY PO Last administered on 11/04/18 08:58; Admin Dose 10 MG; Start 10/22/18 at 09:00 Magnesium Hydroxide (Milk Of Mag) 30 ml DAILY PO Last administered on 11/04/18 08:58; Admin Dose 30 ML; Start 10/22/18 at 09:00 Oxycodone HCl (Oxycontin) 20 mg Q12 PO Last administered on 11/04/18 08:57; Admin Dose 20 MG; Start 10/22/18 at 09:00 Pantoprazole (Protonix Tab) 40 mg AC BREAKFAST PO Last administered on 11/04/18 06:18; Admin Dose 40 MG; Start 10/22/18 at 07:25 Polyethylene Glycol (Miralax) 17 gm DAILY PO Last administered on 11/04/18 08:58; Admin Dose 17 GM; Start 10/22/18 at 09:00 Simethicone (Mylicon) 80 mg Q8H PO Last administered on 11/04/18 08:58; Admin Dose 80 MG; Start 10/21/18 at 23:30 Spironolactone (Aldactone) 50 mg DAILY PO Last administered on 11/04/18 08:58; Admin Dose 50 MG; Start 10/22/18 at 09:00 Zolpidem Tartrate (Ambien) 10 mg HS PRN PO INSOMNIA Last administered on 11/04/18 00:12; Admin Dose 10 MG; Start 10/21/18 at 23:30 Morphine Sulfate (morphine) 2 mg Q4H PRN IV SEVERE PAIN LEVEL 7-10 Last administered on 10/23/18 14:15; Admin Dose 2 MG; Start 10/22/18 at 01:30 Phenol (Cepastat Lozenge) 1 lozenge Q1H PRN MT sore throat Last administered on 10/31/18 18:34; Admin Dose 1 LOZENGE; Start 10/27/18 at 21:30 Fluticasone Propionate (Flonase 0.05% Nasal) 1 spray BID NASAL Last administered on 11/04/18 08:59; Admin Dose 1 SPRAY; Start 10/29/18 at 21:00 Budesonide (Pulmicort (Neb)) 0.5 mg BID RESP THERAPY HHN Last administered on 11/04/18 08:09; Admin Dose 0.5 MG; Start 10/30/18 at 09:00 Metolazone (Zaroxolyn) 2.5 mg BID@7230,7560 PO Last administered on 11/04/18 05:35; Admin Dose 2.5 MG; Start 11/01/18 at 05:30 Furosemide (Lasix) 40 mg BID DIURETICS IV Last administered on 11/04/18 06:18; Admin Dose 40 MG; Start 11/01/18 at 18:00; Status Hold Guaifenesin/ Codeine Phosphate (Robitussin Ac Liquid Cup) 10 ml Q4 PO Last administered on 11/04/18 09:26; Admin Dose 10 ML; Start 11/02/18 at 09:00 Enoxaparin Sodium (Lovenox) 40 mg DAILY SC Last administered on 11/04/18 09:01; Admin Dose 40 MG; Start 11/02/18 at 09:00 Potassium Chloride (Klor-Con 10) 10 meq BID PO Last administered on 11/04/18 08:57; Admin Dose 10 MEQ; Start 11/03/18 at 09:00 Acetazolamide (Diamox) 500 mg DAILY IV Last administered on 11/04/18 09:27; Admin Dose 500 MG; Start 11/04/18 at 09:00 RUSS JEROME MD November 04, 2018 14:38
[2018-11-04 15:17] VITALS: BP 136/89; PULSE 100; RESP 18
[2018-11-04 19:50] VITALS: BP 97/56; PULSE 81; RESP 16
--- NOTE | 2018-11-04 23:17 | CONS ---
Assessment/Plan Assessment/Plan Hospital Course (Demo Recall) METASTATIC BREAST CANCER WITH PRIMARY ADENOCARCINOMA IN the left breast. MULTIPLE BONY METS, PULMONARY METS, LIVER METS CHEMO ON HOLD PT HAS A VERY GOOD RESPONSE TO CHEMO AND AI CONT AI FOR NOW CT ABD FOR RESTAGING 08.27.18- noted , stable Leukopenia- post chemo, FLUCTUATING WITH RECENT WORSENING- post NEUPOGEN monitor closely post Neutropenia with occasional fever and chills. - resolved Anemia chronic disease SOB PLEURAL EFFUSIONS, NEG CYTOLOGY POST thoracentesis Fluid overload diuretic cardiology F-UP Severe pain in the interscapular and lumbar sacral area most probably metastatic lesion possible femoral fracture. pathologic fracture of T9 with 60% of loss of height. Bony pain with multiple bony mets post XRT will d/w dr Ocampo Obesity. Weight loss 60 pounds during the last 2 years COUGH, Upper respiratory infection pharyngitis with dry cough. POST ATB PMS. Myopia. Anxiety disorder. Claustrophobia. Posttraumatic stress disorder. Pain in the left forearm with a history of fracture of ulna and radius. Tachycardia Hypoxemia at night marginal improved after 2 L of nasal cannula oxygen. Deconditioning Pain syndrome. Today the most painful zone is in the right hip area. X-ray did not show any fractures. Hyponatremia- resolved Hypoalbuminemia Right sided cp after catheter insertion and correction less discomfort. Decreased edema both lower extremities with hypotension-improving Swelling of the left forearm-persist. Consultation Date/Type/Reason Admit Date/Time October 21, 2018 at 17:39 Initial Consult Date 10/21/18 Type of Consult [facility] Requesting Provider: RUSS JEROME MD Date/Time of Note DATE: 11/04/18 TIME: 23:14 24 HR Interval Summary Free Text/Dictation ALL NOTED + COUGH, SEVERE WEAK Exam/Review of Systems Exam Vitals Vital Signs Date Temp Pulse Resp B/P (MAP) Pulse Ox O2 O2 Flow FiO2 Time Delivery Rate 11/04/18 86 18 97 32 22:11 11/04/18 3.0 21:45 11/04/18 98.1 97/56 (70) 19:50 11/04/18 Room Air 15:17 Intake and Output 11/03/18 11/03/18 11/04/18 1515:00 23:00 07:00 IntakeIntake Total 250 ml 300 ml 350 ml BalanceBalance 250 ml 300 ml 350 ml Exam HEENT: Head is normocephalic. NECK: Supple. HEART: Regular rate. LUNGS: Show diminished breath sounds at the base., COARSE, FEW RHONCHI ABDOMEN: Soft, nontender to palpation without rebound or guarding. EXTREMITIES: Negative for clubbing, cyanosis. Positive edema, improving. DERMATOLOGIC: No rashes. MUSCULOSKELETAL: No joint effusion. NEUROLOGIC: No change in exam. Results Result Diagram: 11/01/18 0422 11/04/18 0533 Results 24hrs Laboratory Tests Test 11/04/18 05:33 Sodium Level 136 Potassium Level 3.3 L Chloride Level 93 L Carbon Dioxide Level 37 H Anion Gap 6 Blood Urea Nitrogen 26 H Creatinine 0.83 Est Glomerular Filtrat Rate mL/min > 60 Glucose Level 101 Calcium Level 8.7 Phosphorus Level 4.5 Magnesium Level 2.2 Medications Medication Current Medications Acetaminophen (Tylenol Tab) 650 mg Q4H PRN PO PAIN LEVEL 1-10/10 Last administered on 10/29/18at 17:15; Admin Dose 650 MG; Start 10/21/18 at 23:30 Anastrozole (Arimidex) 1 mg DAILY PO Last administered on 11/04/18at 09:00; Admin Dose 1 MG; Start 10/22/18 at 09:00 Benazepril HCl (Lotensin) 5 mg DAILY PO Last administered on 10/30/18at 09:27; Admin Dose 5 MG; Start 10/22/18 at 09:00; Status Hold Bisacodyl (Dulcolax Supp) 10 mg Q8 [place] Last administered on 10/31/18at 16:42; Admin Dose 10 MG; Start 10/22/18 at 06:00 Carvedilol (Coreg) 3.125 mg BID PO Last administered on 11/04/18at 08:59; Admin Dose 3.125 MG; Start 10/22/18 at 09:00 Docusate Sodium (Colace) 100 mg BID PO Last administered on 11/04/18at 21:56; Admin Dose 100 MG; Start 10/22/18 at 09:00 Escitalopram Oxalate (Lexapro) 10 mg DAILY PO Last administered on 11/04/18at 08:57; Admin Dose 10 MG; Start 10/22/18 at 09:00 Albuterol/ Ipratropium (Duoneb) 3 ml Q8H RESP THERAPY HHN Last administered on 11/04/18 22:10; Admin Dose 3 ML; Start 10/22/18 at 00:00 Loratadine (Claritin) 10 mg DAILY PO Last administered on 11/04/18 08:58; Admin Dose 10 MG; Start 10/22/18 at 09:00 Magnesium Hydroxide (Milk Of Mag) 30 ml DAILY PO Last administered on 11/04/18 08:58; Admin Dose 30 ML; Start 10/22/18 at 09:00 Oxycodone HCl (Oxycontin) 20 mg Q12 PO Last administered on 11/04/18 21:57; Admin Dose 20 MG; Start 10/22/18 at 09:00 Pantoprazole (Protonix Tab) 40 mg AC BREAKFAST PO Last administered on 11/04/18 06:18; Admin Dose 40 MG; Start 10/22/18 at 07:25 Polyethylene Glycol (Miralax) 17 gm DAILY PO Last administered on 11/04/18 08:58; Admin Dose 17 GM; Start 10/22/18 at 09:00 Simethicone (Mylicon) 80 mg Q8H PO Last administered on 11/04/18 08:58; Admin Dose 80 MG; Start 10/21/18 at 23:30 Spironolactone (Aldactone) 50 mg DAILY PO Last administered on 11/04/18 08:58; Admin Dose 50 MG; Start 10/22/18 at 09:00 Zolpidem Tartrate (Ambien) 10 mg HS PRN PO INSOMNIA Last administered on 00:12; Admin Dose 10 MG; Start 10/21/18 at 23:30 Morphine Sulfate (morphine) 2 mg Q4H PRN IV SEVERE PAIN LEVEL 7-10 Last administered on 10/23/18 14:15; Admin Dose 2 MG; Start 10/22/18 at 01:30 Phenol (Cepastat Lozenge) 1 lozenge Q1H PRN MT sore throat Last administered on 10/31/18 18:34; Admin Dose 1 LOZENGE; Start 10/27/18 at 21:30 Fluticasone Propionate (Flonase 0.05% Nasal) 1 spray BID NASAL Last administered on 11/04/18 08:59; Admin Dose 1 SPRAY; Start 10/29/18 at 21:00 Budesonide (Pulmicort (Neb)) 0.5 mg BID RESP THERAPY HHN Last administered on 11/04/18at 21:50; Admin Dose 0.5 MG; Start 10/30/18 at 09:00 Metolazone (Zaroxolyn) 2.5 mg BID@0530,1730 PO Last administered on 11/04/18 17:19; Admin Dose 2.5 MG; Start 11/01/18 at 05:30 Furosemide (Lasix) 40 mg BID DIURETICS IV Last administered on 11/04/18 06:18; Admin Dose 40 MG; Start 11/01/18 at 18:00; Status Hold Guaifenesin/ Codeine Phosphate (Robitussin Ac Liquid Cup) 10 ml Q4 PO Last administered on 11/04/18at 21:57; Admin Dose 10 ML; Start 11/02/18 at 09:00 Enoxaparin Sodium (Lovenox) 40 mg DAILY [place] Last administered on 11/04/18at 09:01; Admin Dose 40 MG; Start 11/02/18 at 09:00 Potassium Chloride (Klor-Con 10) 10 meq BID PO Last administered on 11/04/18 21:56; Admin Dose 10 MEQ; Start 11/03/18 at 09:00 Acetazolamide (Diamox) 500 mg DAILY IV Last administered on 11/04/18 09:27; Admin Dose 500 MG; Start 11/04/18 at 09:00 DES DUNAWAY MD November 04, 2018 23:17
[2018-11-05] MEDS: GUAIFENESIN/CODEINE 5ML CUP PO SCH ×6 (01:44→20:58)
[2018-11-05] MEDS: METOLAZONE 2.5 MG TAB PO SCH ×2 (05:48→18:12)
[2018-11-05] MEDS: BISACODYL 10 MG SUPP PR SCH ×3 (06:00→21:00)
[2018-11-05] MEDS ORDERED: POTASSIUM CHLORIDE (SR) 20 MEQ TAB PO STA (07:59)
[2018-11-05] MEDS: BUDESONIDE (NEB) 0.5MG/2ML AMP HHN SCH ×2 (08:07→21:13)
[2018-11-05] MEDS: ALBUTEROL/IPRATROPIUM (NEB) 3 ML AMP HHN SCH ×3 (08:07→21:13)
[2018-11-05] MEDS: PANTOPRAZOLE (EC) 40 MG TAB PO SCH (08:23)
[2018-11-05] MEDS: POTASSIUM CHLORIDE (SR) 10 MEQ TAB PO SCH ×2 (08:24→20:59)
--- NOTE | 2018-11-05 08:25 | PN ---
DATE: 11/05/2018 SUBJECTIVE: The patient is stable, no events overnight. No fevers, chills, nausea or vomiting. Uri nary output has been adequate. OBJECTIVE: VITAL SIGNS: Blood pressure is 97/76, respirations 16, pulse 81, temperature 98.1. HEENT: Head is normocephalic. NECK: Supple. HEART: Regular rate. LUNGS: Show diminished breath sounds at the base. ABDOMEN: Soft, nontender to palpation. No rebound or guarding. EXTREMITIES: Negative for clubbing, cyanosis. Positive edema. DERMATOLOGIC: No rashes. MUSCULOSKELETAL: No joint effusion. NEUROLOGIC: No change in exam. MEDICATIONS: Reviewed. LABORATORY DATA: Reviewed. ASSESSMENT AND PLAN: 1. Volume overload. Etiology is secondary to diastolic heart failure, questionable portal hypertens ion, questionable lymphogenic spread of cancer. The patient is currently on metolazone and Diamox. Loop diuretics were held due to worsening alkalosis. At this point, we will continue current treatme nt plan, monitor renal function and electrolytes closely. 2. Hypokalemia. Continue to monitor and replete with potassium chloride. Continue Aldactone. 3. Alkalosis. Continue Diamox. 4. Nonoliguric acute kidney injury. Etiology is secondary to hemodynamics. Renal function is impro ving. Continue to monitor. 5. Mineral bone disorder. Monitor calcium and phosphorus levels. 6. Breast cancer with metastasis to the liver and spine. Continue to monitor. Follow up with on[facility]. 6. Hip fracture, status post arthroplasty. 7. Pleural effusion, status post thoracentesis. 8. Chronic pain syndrome. Dictated By: ANDRÉS TATUM DO NR/NTS Conf#: [id number] DID#: [id number] CC: RUSS JEROME MD;*EndCC*
[2018-11-05 08:35] VITALS: BP 112/73; PULSE 82; RESP 18
[2018-11-05] MEDS: FLUTICASONE 0.05% 16 GM NAS SPRAY NASAL SCH ×2 (09:00→21:00)
[2018-11-05] MEDS: SPIRONOLACTONE 50 MG TAB PO SCH (09:18)
[2018-11-05] MEDS: LORATADINE 10 MG TAB PO SCH (09:19)
[2018-11-05] MEDS: oxyCODONE (CR) 20 MG TAB [oxyCONTIN] PO SCH ×2 (09:19→20:59)
[2018-11-05] MEDS: ESCITALOPRAM 10 MG TAB PO SCH (09:19)
[2018-11-05] MEDS: ACETAZOLAMIDE 500 MG INJ IV SCH (09:20)
[2018-11-05] MEDS: MAGNESIUM HYDROXIDE 30ML CUP PO SCH (09:20)
[2018-11-05] MEDS: ANASTROZOLE 1 MG TAB PO SCH (09:21)
[2018-11-05] MEDS: ENOXAPARIN 40 MG/0.4 ML SYG SC SCH (09:22)
[2018-11-05] MEDS: DOCUSATE SODIUM 100 MG CAP PO SCH ×2 (09:22→20:58)
[2018-11-05] MEDS: POLYETHYLENE GLYCOL 17 GM PACKET PO SCH (13:10)
--- NOTE | 2018-11-05 13:59 | PN ---
Date/Time of Note Date/Time of Note DATE: 11/05/18 TIME: 13:56 Assessment/Plan VTE Prophylaxis Risk score (from Nsg)>0 risk: 7 SCD applied (from Nsg): Yes SCD contraindicated: other (on.) Pharmacological prophylaxis: LMWH Lines/Catheters IV Catheter Type (from Nrsg): vishal cath Central line still needed: No Urinary Cath still in place: No Reason Cath still needed: urinary retention Assessment/Plan Assessment/Plan 1. PRIMARY ADENOCARCINOMA of the left breast. MULTIPLE BONY METS, PULMONARY METS;LIVER METS CHEMO ON HOLD; PT HAS A VERY GOOD RESPONSE TO CHEMO AND AI 2. Severe pain in the interscapular and lumbar sacral area most probably metastatic lesion possible femoral fracture. pathologic fracture of T9 with 60% of loss of height. Neurosurgical f/u. 3. Obesity. 4. Weight loss 60 pounds during the last 2 years by diet 5. PMS. 6. Myopia. 7. Anemia chronic disease with a drop of her hematocrit to 27; Latest results 28. Will recheck tomorrow;Leukopenia.Thrombocytopenia; 8. Anxiety disorder. Claustrophobia. Increase Ativan to 1 mg every 8 as needed at Lexapro 10 mg daily. 9. Posttraumatic stress disorder. 10. Pain in the left forearm with a history of fracture of ulna and radius. 11. Tachycardia 12. Hypoxemia at night marginal improved after 2 L of nasal cannula oxygen. 13. Deconditioning 14. 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 MRI: 09/28/18:diffuse osseous metastatic disease with multiple pathologic compression fractures at least involving the T4, T5, T7, T9 and T11 levels. There is likely mild cortical breakthrough at several levels resulting in mild central canal narrowing. No gross evidence of cord compression is seen.. 15. Pain syndrome. Today the most painful zone is in the right hip area. 16. Hyponatremia-corrected; hypokalemia now hyperkalemic 5.2 hold potassium p.o. today and hold Aldactone today.Recheck and sodium chloride daily with the dose to 4 mg today 17. Leucopenia-improved. 18. Neutropenia with occasional fever and chills. Last chemotherapy 5 days ago. 19. Hypoalbuminemia. 20.Right sided cp after catheter insertion and correction less discomfort. 21. Decreased edema both lower extremities with [id number] with Pleural and Pericardial effusion. 22. pain syndrome 23.bilateral pleural effusions ; s/p left thoracentesis, During the procedure the probe of the u/s was placed to the right side of the chest which showed only minimal amount of liquid on the right pleural cavity. Reaccumulation of the pleural fluid. Plan to tap from the right side tomorrow a.m. 24. Systolic over diastolic congestive heart failure with a right more than left lower extremity swelling with no DVT in latest venous Doppler. 25. Swelling of the left forearm-persist. Cellulitis of the left forearm with increased edema anteriorly.-Today it is less edematous 26. Pathologic fracture of the right hip;s/p hemiarthroplasty of right hip . 27. Dizziness 28. Chills. 29. Memory impairment. 30. Upper respiratory infection pharyngitis with dry cough. 31. Decreased voice with wheezing. Result Diagram: 11/01/18 0422 11/05/18 0436 Results 24hrs Laboratory Tests Test 11/05/18 04:36 Sodium Level 136 Potassium Level 3.3 L Chloride Level 93 L Carbon Dioxide Level 34 H Anion Gap 9 Blood Urea Nitrogen 27 H Creatinine 0.91 Est Glomerular Filtrat Rate mL/min > 60 Glucose Level 114 Calcium Level 8.9 Phosphorus Level 5.1 H Magnesium Level 2.3 Subjective 24 Hr Interval Summary Free Text/Dictation Persistent cough with almost no help with current Rx. Constitutional: improved, chills, poor po; No no complaints, No diaphoresis, No disoriented, No febrile, No requiring IVF, No requiring O2, No other Eyes: No no complaints, No pain, No discharge, No redness, No visual change, No other ENT: congestion; No no complaints, No bleeding, No pain, No discharge, No dysphagia, No sore throat, No other Respiratory: cough, pleuritic pain, shortness of breath; No no complaints, No pain, No sputum, No wheezing, No other Cardiovascular: edema, orthopenea, palpitations, paroxysmal nocturnal dyspnea; No no complaints, No chest pain, No lightheadedness, No other Gastrointestinal: constipation, flatus, passing stool; No no complaints, No pain, No blood, No decreased appetite, No diarrhea, No nausea, No vomiting, No other Genitourinary: dysuria; No no complaints, No bleeding, No discharge, No flank pain, No hematuria, No other Musculoskeletal: back pain, bone/joint pain, neck pain; No no complaints, No restricted range of motion, No swelling, No other Skin: bruising Neurologic: dizziness, headache; No no complaints, No focal-weakness, No syncope, No seizure, No other Endocrine: polyuria; No no complaints, No polydypsia, No dry skin, No temp intolerance, No other Psychological: anxiety; No no complaints, No nl mood/affect, No confusion, No depression, No suicidal, No other Exam/Review of Systems Exam Vitals Vital Signs Date Temp Pulse Resp B/P (MAP) Pulse Ox O2 O2 Flow FiO2 Time Delivery Rate 11/05/18 97.9 82 18 112/73 91 Room Air 08:35 (86) 11/05/18 2.0 08:30 11/04/18 32 22:11 Intake and Output 11/04/18 11/04/18 11/05/18 1515:00 23:00 07:00 IntakeIntake Total 200 ml 560 ml BalanceBalance 200 ml 560 ml Constitutional: alert, oriented, well developed, distress, frail Psych: anxiety, confusion; No no complaints, No nl mood/affect, No depression, No suicidal, No other Head: normocephalic, atraumatic; No lacerations, No hematomas, No other Eyes: EOMI, nl lids, PERRL; No nl conjunctiva, No nl sclera, No icteric, No fundi, disc, No other ENMT: nl nasal mucosa & septum, tympanic membranes; No nl external ears & nose, No nl lips & teeth, No mucosa pink and moist, No intubated, No other Neck: jvd, bruits, thyromegaly; No supple, No non-tender, No masses, No nuchal rigidity, No other Respiratory: normal air movement, congested cough, crackles/rales, diminished breath sounds, wheezing; No clear to auscultation, No intercostal retraction, No labored breathing, No respirations, No tactile fremitus, No other Cardiovascular: regular rate and rhythm, systolic murmur; No nl pulses, No bruits, No diastolic murmur, No edema, No gallop, No irregular rhythm, No jugular venous distention (JVD), No murmurs/extra sounds, No rub, No S3, No S4, No other Gastrointestinal: soft, nl liver, spleen, bowel sounds; No non-tender, No ascites, No distended, No firm, No hepatomegaly, No mass, No rebound or guarding, No splenomegaly, No surgical scars, No tender, No other Musculoskeletal: joint tenderness, muscle tone, muscle weakness; No nl extremities to inspection, No nl gait and stance, No range of motion, No spine non-tender, No swelling, No other Extremities: normal pulses; No calf tenderness, No cyanosis, No clubbing, No edema, No pitting pedal edema, No palpable cord, No tenderness, No other 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: 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; No nl mental status, No nl speech, No nl strength, No confused, No DTR's symmetric, No focal weakness, No lethargic, No numbness, No reflexes, No unresponsive, No other Skin: nl turgor, ecchymosis; No rash or lesions, No diaphoresis, No laceration, No puncture, No other Lymph: nl lymph nodes; No enlarged, No nontender, No other Results Results 24hrs Laboratory Tests Test 11/05/18 04:36 Sodium Level 136 Potassium Level 3.3 L Chloride Level 93 L Carbon Dioxide Level 34 H Anion Gap 9 Blood Urea Nitrogen 27 H Creatinine 0.91 Est Glomerular Filtrat Rate mL/min > 60 Glucose Level 114 Calcium Level 8.9 Phosphorus Level 5.1 H Magnesium Level 2.3 Medications Medication Current Medications Acetaminophen (Tylenol Tab) 650 mg Q4H PRN PO PAIN LEVEL 1-10/10 Last administered on 10/29/18 17:15; Admin Dose 650 MG; Start 10/21/18 at 23:30 Anastrozole (Arimidex) 1 mg DAILY PO Last administered on 11/05/18at 09:21; Admin Dose 1 MG; Start 10/22/18 at 09:00 Benazepril HCl (Lotensin) 5 mg DAILY PO Last administered on 10/30/18at 09:27; Admin Dose 5 MG; Start 10/22/18 at 09:00; Status Hold Bisacodyl (Dulcolax Supp) [address] Last administered on 10/31/18at 16:42; Admin Dose 10 MG; Start 10/22/18 at 06:00 Carvedilol (Coreg) 3.125 mg BID PO Last administered on 11/04/18 08:59; Admin Dose 3.125 MG; Start 10/22/18 at 09:00 Docusate Sodium (Colace) 100 mg BID PO Last administered on 11/05/18 09:22; Admin Dose 100 MG; Start 10/22/18 at 09:00 Escitalopram Oxalate (Lexapro) 10 mg DAILY PO Last administered on 11/05/18 09:19; Admin Dose 10 MG; Start 10/22/18 at 09:00 Albuterol/ Ipratropium (Duoneb) 3 ml Q8H RESP THERAPY HHN Last administered on 11/05/18 08:07; Admin Dose 3 ML; Start 10/22/18 at 00:00 Loratadine (Claritin) 10 mg DAILY PO Last administered on 11/05/18 09:19; Admin Dose 10 MG; Start 10/22/18 at 09:00 Magnesium Hydroxide (Milk Of Mag) 30 ml DAILY PO Last administered on 11/05/18 09:20; Admin Dose 30 ML; Start 10/22/18 at 09:00 Oxycodone HCl (Oxycontin) 20 mg Q12 PO Last administered on 11/05/18 09:19; A dmin Dose 20 MG; Start 10/22/18 at 09:00 Pantoprazole (Protonix Tab) 40 mg AC BREAKFAST PO Last administered on 11/05/18 08:23; Admin Dose 40 MG; Start 10/22/18 at 07:25 Polyethylene Glycol (Miralax) 17 gm DAILY PO Last administered on 11/05/18 13:10; Admin Dose 17 GM; Start 10/22/18 at 09:00 Simethicone (Mylicon) 80 mg Q8H PO Last administered on 11/05/18 08:23; Admin Dose 80 MG; Start 10/21/18 at 23:30 Spironolactone (Aldactone) 50 mg DAILY PO Last administered on 11/05/18 09:18; Admin Dose 50 MG; Start 10/22/18 at 09:00 Zolpidem Tartrate (Ambien) 10 mg HS PRN PO INSOMNIA Last administered on 11/04/18 23:51; Admin Dose 10 MG; Start 10/21/18 at 23:30 Morphine Sulfate (morphine) 2 mg Q4H PRN IV SEVERE PAIN LEVEL 7-10 Last administered on 10/23/18 14:15; Admin Dose 2 MG; Start 10/22/18 at 01:30 Phenol (Cepastat Lozenge) 1 lozenge Q1H PRN MT sore throat Last administered on 10/31/18 18:34; Admin Dose 1 LOZENGE; Start 10/27/18 at 21:30 Fluticasone Propionate (Flonase 0.05% Nasal) 1 spray BID NASAL Last administered on 11/04/18 08:59; Admin Dose 1 SPRAY; Start 10/29/18 at 21:00 Budesonide (Pulmicort (Neb)) 0.5 mg BID RESP THERAPY HHN Last administered on 11/05/18 08:07; Admin Dose 0.5 MG; Start 10/30/18 at 09:00 Metolazone (Zaroxolyn) 2.5 mg BID@0530,1730 PO Last administered on 11/05/18 05:48; Admin Dose 2.5 MG; Start 11/01/18 at 05:30 Furosemide (Lasix) 40 mg BID DIURETICS IV Last administered on 11/04/18 06:18; Admin Dose 40 MG; Start 11/01/18 at 18:00; Status Hold Guaifenesin/ Codeine Phosphate (Robitussin Ac Liquid Cup) 10 ml Q4 PO Last administered on 11/05/18 13:10; Admin Dose 10 ML; Start 11/02/18 at 09:00 Enoxaparin Sodium (Lovenox) 40 mg DAILY SC Last administered on 11/05/18 09:22; Admin Dose 40 MG; Start 11/02/18 at 09:00 Potassium Chloride (Klor-Con 10) 10 meq BID PO Last administered on 11/05/18 08:24; Admin Dose 10 MEQ; Start 11/03/18 at 09:00 Acetazolamide (Diamox) 500 mg DAILY IV Last administered on 11/05/18 09:20; Admin Dose 500 MG; Start 11/04/18 at 09:00 RUSS JEROME MD November 05, 2018 13:59
[2018-11-05 14:00] VITALS: BP 110/58; PULSE 80; RESP 18
--- NOTE | 2018-11-05 14:56 | CONS ---
Assessment/Plan Assessment/Plan Hospital Course (Demo Recall) 1. Congestive heart failure exacerbation would be diastolic, acute on chronic by most recent echo.-now s/p echo this admit with EF 60/small effusion - better now, responding to diuresis. BETTER overall- very robust urine output - improved CHF. Overall stable. Responded well. 2. Abnormal electrocardiogram with low voltage, rule out pericardial effusion - stable, no signs of tamponade. Treated. Off tele now. NO intervetion palnned. 3. Hypertension-currently borderline hypotension - treated with meds. BP stable overall. 4. Metastatic breast carcinoma- responded to chemo per Dr. Fernández - still poor prognosis. 5. History of pathologic fractures of the leg, status post open reduction and internal fixation - pain controlled. 6. Anemia =- Rx per hem-onc team. 7. Increased BNP consistent with patient's congestive heart failure. 8. Pericardial effusion-small by echo 8. Cough - con't anti-bx now. Consultation Date/Type/Reason Admit Date/Time October 21, 2018 at 17:39 Initial Consult Date 10/21/18 Requesting Provider: RUSS JEROME MD Date/Time of Note DATE: 11/05/18 TIME: 14:54 24 HR Interval Summary Free Text/Dictation VS reviewed Exam/Review of Systems Exam Vitals Vital Signs Date Temp Pulse Resp B/P (MAP) Pulse Ox O2 O2 Flow FiO2 Time Delivery Rate 11/05/18 97.9 82 18 112/73 91 Room Air 08:35 (86) 11/05/18 2.0 08:30 11/04/18 32 22:11 Intake and Output 11/04/18 11/04/18 11/05/18 1515:00 23:00 07:00 IntakeIntake Total 200 ml 560 ml BalanceBalance 200 ml 560 ml Results Result Diagram: 11/01/18 0422 11/05/18 0436 Results 24hrs Laboratory Tests Test 11/05/18 04:36 Sodium Level 136 Potassium Level 3.3 L Chloride Level 93 L Carbon Dioxide Level 34 H Anion Gap 9 Blood Urea Nitrogen 27 H Creatinine 0.91 Est Glomerular Filtrat Rate mL/min > 60 Glucose Level 114 Calcium Level 8.9 Phosphorus Level 5.1 H Magnesium Level 2.3 Medications Medication Current Medications Acetaminophen (Tylenol Tab) 650 mg Q4H PRN PO PAIN LEVEL 1-10/10 Last administered on 10/29/18 17:15; Admin Dose 650 MG; Start 10/21/18 at 23:30 Anastrozole (Arimidex) 1 mg DAILY PO Last administered on 11/05/18 09:21; Admin Dose 1 MG; Start 10/22/18 at 09:00 Benazepril HCl (Lotensin) 5 mg DAILY PO Last administered on 10/30/18 09:27; Admin Dose 5 MG; Start 10/22/18 at 09:00; Status Hold Bisacodyl (Dulcolax Supp) 10 mg Q8 RI Last administered on 10/31/18 16:42; Admin Dose 10 MG; Start 10/22/18 at 06:00 Carvedilol (Coreg) 3.125 mg BID PO Last administered on 11/04/18 08:59; Admin Dose 3.125 MG; Start 10/22/18 at 09:00 Docusate Sodium (Colace) 100 mg BID PO Last administered on 11/05/18 09:22; Admin Dose 100 MG; Start 10/22/18 at 09:00 Escitalopram Oxalate (Lexapro) 10 mg DAILY PO Last administered on 11/05/18 09:19; Admin Dose 10 MG; Start 10/22/18 at 09:00 Albuterol/ Ipratropium (Duoneb) 3 ml Q8H RESP THERAPY HHN Last administered on 11/05/18 08:07; Admin Dose 3 ML; Start 10/22/18 at 00:00 Loratadine (Claritin) 10 mg DAILY PO Last administered on 11/05/18 09:19; Admin Dose 10 MG; Start 10/22/18 at 09:00 Magnesium Hydroxide (Milk Of Mag) 30 ml DAILY PO Last administered on 11/05/18 09:20; Admin Dose 30 ML; Start 10/22/18 at 09:00 Oxycodone HCl (Oxycontin) 20 mg Q12 PO Last administered on 11/05/18 09:19; Admin Dose 20 MG; Start 10/22/18 at 09:00 Pantoprazole (Protonix Tab) 40 mg AC BREAKFAST PO Last administered on 11/05/18 08:23; Admin Dose 40 MG; Start 10/22/18 at 07:25 Polyethylene Glycol (Miralax) 17 gm DAILY PO Last administered on 11/05/18 13:10; Admin Dose 17 GM; Start 10/22/18 at 09:00 Simethicone (Mylicon) 80 mg Q8H PO Last administered on 11/05/18 08:23; Admin Dose 80 MG; Start 10/21/18 at 23:30 Spironolactone (Aldactone) 50 mg DAILY PO Last administered on 11/05/18 09:18; Admin Dose 50 MG; Start 10/22/18 at 09:00 Zolpidem Tartrate (Ambien) 10 mg HS PRN PO INSOMNIA Last administered on 11/04/18 23:51; Admin Dose 10 MG; Start 10/21/18 at 23:30 Morphine Sulfate (morphine) 2 mg Q4H PRN IV SEVERE PAIN LEVEL 7-10 Last adminis tered on 10/23/18 14:15; Admin Dose 2 MG; Start 10/22/18 at 01:30 Phenol (Cepastat Lozenge) 1 lozenge Q1H PRN MT sore throat Last administered on 10/31/18 18:34; Admin Dose 1 LOZENGE; Start 10/27/18 at 21:30 Fluticasone Propionate (Flonase 0.05% Nasal) 1 spray BID NASAL Last administered on 11/04/18 08:59; Admin Dose 1 SPRAY; Start 10/29/18 at 21:00 Budesonide (Pulmicort (Neb)) 0.5 mg BID RESP THERAPY HHN Last administered on 11/05/18 08:07; Admin Dose 0.5 MG; Start 10/30/18 at 09:00 Metolazone (Zaroxolyn) 2.5 mg BID@2592,3500 PO Last administered on 11/05/18 05:48; Admin Dose 2.5 MG; Start 11/01/18 at 05:30 Furosemide (Lasix) 40 mg BID DIURETICS IV Last administered on 11/04/18 0 6:18; Admin Dose 40 MG; Start 11/01/18 at 18:00; Status Hold Guaifenesin/ Codeine Phosphate (Robitussin Ac Liquid Cup) 10 ml Q4 PO Last administered on 11/05/18 13:10; Admin Dose 10 ML; Start 11/02/18 at 09:00 Enoxaparin Sodium (Lovenox) 40 mg DAILY SC Last administered on 11/05/18at 09:22; Admin Dose 40 MG; Start 11/02/18 at 09:00 Potassium Chloride (Klor-Con 10) 10 meq BID PO Last administered on 11/05/18at 08:24; Admin Dose 10 MEQ; Start 11/03/18 at 09:00 Acetazolamide (Diamox) 500 mg DAILY IV Last administered on 11/05/18at 09:20; Admin Dose 500 MG; Start 11/04/18 at 09:00 EMILY NELSON MD November 05, 2018 14:56
[2018-11-05 20:42] VITALS: BP 107/58; PULSE 81; RESP 16
--- NOTE | 2018-11-05 22:52 | CONS ---
Assessment/Plan Assessment/Plan Hospital Course (Demo Recall) METASTATIC BREAST CANCER WITH PRIMARY ADENOCARCINOMA IN the left breast. MULTIPLE BONY METS, PULMONARY METS, LIVER METS CHEMO ON HOLD PT HAS A VERY GOOD RESPONSE TO CHEMO AND AI CONT AI FOR NOW CT ABD FOR RESTAGING 08.27.18- noted , stable Leukopenia- post chemo, FLUCTUATING WITH RECENT WORSENING- post NEUPOGEN monitor closely post Neutropenia with occasional fever and chills. - resolved Anemia chronic disease SOB PLEURAL EFFUSIONS, NEG CYTOLOGY POST thoracentesis Fluid overload diuretic cardiology F-UP Severe pain in the interscapular and lumbar sacral area most probably metastatic lesion possible femoral fracture. pathologic fracture of T9 with 60% of loss of height. Bony pain with multiple bony mets post XRT will d/w dr Ocampo Obesity. Weight loss 60 pounds during the last 2 years COUGH, Upper respiratory infection pharyngitis with dry cough. POST ATB PMS. Myopia. Anxiety disorder. Claustrophobia. Posttraumatic stress disorder. Pain in the left forearm with a history of fracture of ulna and radius. Tachycardia Hypoxemia at night marginal improved after 2 L of nasal cannula oxygen. Deconditioning Pain syndrome. Today the most painful zone is in the right hip area. X-ray did not show any fractures. Hyponatremia- resolved Hypoalbuminemia Right sided cp after catheter insertion and correction less discomfort. Decreased edema both lower extremities with hypotension-improving Swelling of the left forearm-persist. Consultation Date/Type/Reason Admit Date/Time October 21, 2018 at 17:39 Initial Consult Date 10/21/18 Type of Consult [facility] Requesting Provider: RUSS JEROME MD Date/Time of Note DATE: 11/05/18 TIME: 22:52 24 HR Interval Summary Free Text/Dictation SL BETTER Exam/Review of Systems Exam Vitals Vital Signs Date Temp Pulse Resp B/P (MAP) Pulse Ox O2 O2 Flow FiO2 Time Delivery Rate 11/05/18 86 20 98 Nasal 3.0 21:13 Cannula 11/05/18 98.1 107/58 20:42 (74) 11/04/18 32 22:11 Intake and Output 11/04/18 11/04/18 11/05/18 1515:00 23:00 07:00 IntakeIntake Total 200 ml 560 ml BalanceBalance 200 ml 560 ml Exam HEENT: Head is normocephalic. NECK: Supple. HEART: Regular rate. LUNGS: Show diminished breath sounds at the base., COARSE, FEW RHONCHI ABDOMEN: Soft, nontender to palpation without rebound or guarding. EXTREMITIES: Negative for clubbing, cyanosis. Positive edema, improving. DERMATOLOGIC: No rashes. MUSCULOSKELETAL: No joint effusion. NEUROLOGIC: No change in exam. Results Result Diagram: 11/01/18 0422 11/05/18 0436 Results 24hrs Laboratory Tests Test 11/05/18 04:36 Sodium Level 136 Potassium Level 3.3 L Chloride Level 93 L Carbon Dioxide Level 34 H Anion Gap 9 Blood Urea Nitrogen 27 H Creatinine 0.91 Est Glomerular Filtrat Rate mL/min > 60 Glucose Level 114 Calcium Level 8.9 Phosphorus Level 5.1 H Magnesium Level 2.3 Medications Medication Current Medications Acetaminophen (Tylenol Tab) 650 mg Q4H PRN PO PAIN LEVEL 1-10/10 Last administered on 10/29/18 17:15; Admin Dose 650 MG; Start 10/21/18 at 23:30 Anastrozole (Arimidex) 1 mg DAILY PO Last administered on 11/05/18 09:21; Admin Dose 1 MG; Start 10/22/18 at 09:00 Benazepril HCl (Lotensin) 5 mg DAILY PO Last administered on 10/30/18 09:27; Admin Dose 5 MG; Start 10/22/18 at 09:00; Status Hold Bisacodyl (Dulcolax Supp) 10 mg Q8 OK Last administered on 10/31/18at 16:42; Admin Dose 10 MG; Start 10/22/18 at 06:00 Carvedilol (Coreg) 3.125 mg BID PO Last administered on 11/04/18at 08:59; Admin Dose 3.125 MG; Start 10/22/18 at 09:00 Docusate Sodium (Colace) 100 mg BID PO Last administered on 11/05/18 20:58; Admin Dose 100 MG; Start 10/22/18 at 09:00 Escitalopram Oxalate (Lexapro) 10 mg DAILY PO Last administered on 11/05/18 09:19; Admin Dose 10 MG; Start 10/22/18 at 09:00 Albuterol/ Ipratropium (Duoneb) 3 ml Q8H RESP THERAPY HHN Last administered on 11/05/18at 21:13; Admin Dose 3 ML; Start 10/22/18 at 00:00 Loratadine (Claritin) 10 mg DAILY PO Last administered on 11/05/18 09:19; Admin Dose 10 MG; Start 10/22/18 at 09:00 Magnesium Hydroxide (Milk Of Mag) 30 ml DAILY PO Last administered on 11/05/18 09:20; Admin Dose 30 ML; Start 10/22/18 at 09:00 Oxycodone HCl (Oxycontin) 20 mg Q12 PO Last administered on 11/05/18 20:59; Admin Dose 20 MG; Start 10/22/18 at 09:00 Pantoprazole (Protonix Tab) 40 mg AC BREAKFAST PO Last administered on 11/05/18 08:23; Admin Dose 40 MG; Start 10/22/18 at 07:25 Polyethylene Glycol (Miralax) 17 gm DAILY PO Last administered on 11/05/18 13:10; Admin Dose 17 GM; Start 10/22/18 at 09:00 Simethicone (Mylicon) 80 mg Q8H PO Last administered on 11/05/18 08:23; Admin Dose 80 MG; Start 10/21/18 at 23:30 Spironolactone (Aldactone) 50 mg DAILY PO Last administered on 11/05/18 09:18; Admin Dose 50 MG; Start 10/22/18 at 09:00 Zolpidem Tartrate (Ambien) 10 mg HS PRN PO INSOMNIA Last administered on 11/04/18 23:51; Admin Dose 10 MG; Start 10/21/18 at 23:30 Morphine Sulfate (morphine) 2 mg Q4H PRN IV SEVERE PAIN LEVEL 7-10 Last administered on 10/23/18 14:15; Admin Dose 2 MG; Start 10/22/18 at 01:30 Phenol (Cepastat Lozenge) 1 lozenge Q1H PRN MT sore throat Last administered on 10/31/18 18:34; Admin Dose 1 LOZENGE; Start 10/27/18 at 21:30 Fluticasone Propionate (Flonase 0.05% Nasal) 1 spray BID NASAL Last administered on 11/04/18 08:59; Admin Dose 1 SPRAY; Start 10/29/18 at 21:00 Budesonide (Pulmicort (Neb)) 0.5 mg BID RESP THERAPY HHN Last administered on 11/05/18 21:13; Admin Dose 0.5 MG; Start 10/30/18 at 09:00 Metolazone (Zaroxolyn) 2.5 mg BID@0530,1730 PO Last administered on 11/05/18 18:12; Admin Dose 2.5 MG; Start 11/01/18 at 05:30 Furosemide (Lasix) 40 mg BID DIURETICS IV Last administered on 11/04/18 06:18; Admin Dose 40 MG; Start 11/01/18 at 18:00; Status Hold Guaifenesin/ Codeine Phosphate (Robitussin Ac Liquid Cup) 10 ml Q4 PO Last administered on 11/05/18 20:58; Admin Dose 10 ML; Start 11/02/18 at 09:00 Enoxaparin Sodium (Lovenox) 40 mg DAILY SC Last administered on 11/05/18 09:22; Admin Dose 40 MG; Start 11/02/18 at 09:00 Potassium Chloride (Klor-Con 10) 10 meq BID PO Last administered on 11/05/18 20:59; Admin Dose 10 MEQ; Start 11/03/18 at 09:00 Acetazolamide (Diamox) 500 mg DAILY IV Last administered on 11/05/18 09:20; Admin Dose 500 MG; Start 11/04/18 at 09:00 DES DUNAWAY MD November 05, 2018 22:52
[2018-11-06] MEDS: GUAIFENESIN/CODEINE 5ML CUP PO SCH ×6 (01:09→21:57)
[2018-11-06 01:30] VITALS: BP 111/62; PULSE 88; RESP 18
[2018-11-06] MEDS: METOLAZONE 2.5 MG TAB PO SCH ×2 (05:10→18:28)
[2018-11-06 05:35] VITALS: BP 112/72; PULSE 86
[2018-11-06] MEDS: BISACODYL 10 MG SUPP PR SCH ×3 (06:00→21:43)
[2018-11-06 07:11] VITALS: BP 120/68; PULSE 82; RESP 19
[2018-11-06] MEDS: ALBUTEROL/IPRATROPIUM (NEB) 3 ML AMP HHN SCH ×3 (08:35→20:38)
[2018-11-06] MEDS: BUDESONIDE (NEB) 0.5MG/2ML AMP HHN SCH ×2 (08:36→20:38)
--- NOTE | 2018-11-06 08:44 | PN ---
DATE: 11/06/2018 SUBJECTIVE: The patient is stable, no events overnight. The patient states that her urinary output is minimal. Swelling is improving. No other events noted. OBJECTIVE: VITAL SIGNS: Blood pressure is 120/68, respirations 19, pulse 82, temperature 97.7. HEENT: Head is normocephalic. NECK: Supple. HEART: Regular rate. LUNGS: Show diminished breath sounds at the base. ABDOMEN: Soft, nontender to palpation without rebound or guarding. EXTREMITIES: Negative for clubbing, cyanosis. Positive edema in right lower extremity and left uppe r extremity. DERMATOLOGIC: No rashes. MUSCULOSKELETAL: No joint effusion. MEDICATIONS: Reviewed. LABORATORY DATA: Reviewed. ASSESSMENT AND PLAN: 1. Volume overload. Etiology is secondary to diastolic heart failure, questionable portal hypertens ion and nephrogenic spread secondary to metastatic disease, questionable lymphogenic spread of cancer . The patient is currently on metolazone and Diamox, loop diuretics have been held due to alkalosis. We will continue current treatment plan, monitor renal function and electrolytes closely. 2. Hypokalemia, improved. Continue to monitor. 3. Alkalosis. Continue Diamox. 4. Nonoliguric acute kidney injury. Etiology is secondary to hemodynamics. Renal function is impro bill. Continue to monitor. 5. Mineral bone disorder. Monitor calcium and phosphorus levels. 6. Breast cancer with metastasis to the liver and spine. Continue to monitor. 7. Hip fracture, status post arthroplasty. 8. Pleural effusion, status post thoracentesis. 9. Chronic pain syndrome. Dictated By: ANDRÉS YO/KEANU Conf#: [id number] DID#: [id number] CC: RUSS JEROME MD;*EndCC*
[2018-11-06] MEDS: ESCITALOPRAM 10 MG TAB PO SCH (09:13)
[2018-11-06] MEDS: DOCUSATE SODIUM 100 MG CAP PO SCH ×2 (09:13→21:57)
[2018-11-06] MEDS: SPIRONOLACTONE 50 MG TAB PO SCH (09:13)
[2018-11-06] MEDS: PANTOPRAZOLE (EC) 40 MG TAB PO SCH (09:13)
[2018-11-06] MEDS: POTASSIUM CHLORIDE (SR) 10 MEQ TAB PO SCH ×2 (09:13→21:57)
[2018-11-06] MEDS: LORATADINE 10 MG TAB PO SCH (09:14)
[2018-11-06] MEDS: ANASTROZOLE 1 MG TAB PO SCH (09:14)
[2018-11-06] MEDS: ACETAZOLAMIDE 500 MG INJ IV SCH ×2 (09:15→21:57)
[2018-11-06] MEDS: oxyCODONE (CR) 20 MG TAB [oxyCONTIN] PO SCH ×2 (09:18→21:57)
[2018-11-06] MEDS: POLYETHYLENE GLYCOL 17 GM PACKET PO SCH (09:19)
[2018-11-06] MEDS: MAGNESIUM HYDROXIDE 30ML CUP PO SCH (09:19)
[2018-11-06] MEDS: ENOXAPARIN 40 MG/0.4 ML SYG SC SCH (09:21)
[2018-11-06] MEDS: FLUTICASONE 0.05% 16 GM NAS SPRAY NASAL SCH ×2 (09:24→21:58)
[2018-11-06 15:30] VITALS: BP 114/63; PULSE 81; RESP 18
--- NOTE | 2018-11-06 15:45 | CONS ---
Assessment/Plan Assessment/Plan Hospital Course (Demo Recall) IMPRESSION: 1. Congestive heart failure exacerbation would be diastolic, acute on chronic by most recent echo.-now s/p echo this admit with EF 60/small effusion 2. Abnormal electrocardiogram with low voltage, rule out pericardial effusion. 3. Hypertension-currently borderline hypotension 4. Metastatic breast carcinoma. 5. History of pathologic fractures of the leg, status post open reduction and internal fixation. 6. Anemia. 7. Increased BNP consistent with patient's congestive heart failure. 8. Pericardial effusion-small by echo Recc: -On med-surg -Lasix held and patient placed on diamox with metolazone and aldactone by renal due to development of contraction alkalosis -Continue current coreg as tolerated only and continue to hold benazepril at this time and follow BP clsoely -follow K clsoely Consultation Date/Type/Reason Admit Date/Time October 21, 2018 at 17:39 Initial Consult Date 10/21/18 Type of Consult Cardiology Reason for Consultation CHF Requesting Provider: RUSS JEROME MD Date/Time of Note DATE: 11/06/18 TIME: 15:42 Exam/Review of Systems Vital Signs Vitals Vital Signs Date Temp Pulse Resp B/P (MAP) Pulse Ox O2 O2 Flow FiO2 Time Delivery Rate 11/06/18 98.3 81 18 114/63 96 Room Air 15:30 (80) 11/06/18 21 08:36 11/06/18 2.0 08:35 Intake and Output 11/05/18 11/05/18 11/06/18 1515:00 23:00 07:00 IntakeIntake Total 300 ml 350 ml BalanceBalance 300 ml 350 ml Exam Exam Review of Systems: CONSTITUTIONAL: No fevers, chills. PULMONARY: No sob CARDIOVASCULAR: No chest pain/palpitations GASTROINTESTINAL: No nausea/vomiting. GENITOURINARY: No hematuria/dysuria. MUSCULOSKELETAL: No myagias/arthalgias. PSYCHIATRIC: The patient denies depression. NEUROLOGIC: generalized weakness Constitutional: alert Psych: no complaints Head: normocephalic ENMT: mucosa pink and moist Neck: supple, jvd (9 cm water) Respiratory: diminished breath sounds (at bases/B) Cardiovascular: regular rate and rhythm Gastrointestinal: soft, non-tender Musculoskeletal: muscle weakness (mild generalized) Extremities: pitting pedal edema (R>L) Labs Result Diagram: 11/06/18 0436 Results 24hrs Laboratory Tests Test 11/06/18 04:36 Sodium Level 134 L Potassium Level 3.5 Chloride Level 95 L Carbon Dioxide Level 31 Anion Gap 8 Blood Urea Nitrogen 26 H Creatinine 0.82 Est Glomerular Filtrat Rate mL/min > 60 Glucose Level 126 Calcium Level 8.9 Phosphorus Level 5.0 H Magnesium Level 2.3 Carcinoembryonic Antigen 3.1 CA 125 Antigen 15.0 Medications Medications Current Medications Acetaminophen (Tylenol Tab) 650 mg Q4H PRN PO PAIN LEVEL 1-03/27 Last administered on 10/29/18 17:15; Admin Dose 650 MG; Start 10/21/18 at 23:30 Anastrozole (Arimidex) 1 mg DAILY PO Last administered on 11/06/18 09:14; Admin Dose 1 MG; Start 10/22/18 at 09:00 Benazepril HCl (Lotensin) 5 mg DAILY PO Last administered on 10/30/18 09:27; Admin Dose 5 MG; Start 10/22/18 at 09:00; Status Hold Bisacodyl (Dulcolax Supp) 10 mg Q8 NV Last administered on 10/31/18 16:42; Admin Dose 10 MG; Start 10/22/18 at 06:00 Carvedilol (Coreg) 3.125 mg BID PO Last administered on 11/06/18 09:14; Admin Dose 3.125 MG; Start 10/22/18 at 09:00 Docusate Sodium (Colace) 100 mg BID PO Last administered on 11/06/18 09:13; Admin Dose 100 MG; Start 10/22/18 at 09:00 Escitalopram Oxalate (Lexapro) 10 mg DAILY PO Last administered on 11/06/18 09:13; Admin Dose 10 MG; Start 10/22/18 at 09:00 Albuterol/ Ipratropium (Duoneb) 3 ml Q8H RESP THERAPY HHN Last administered on 11/06/18 08:35; Admin Dose 3 ML; Start 10/22/18 at 00:00 Loratadine (Claritin) 10 mg DAILY PO Last administered on 11/06/18 09:14; A dmin Dose 10 MG; Start 10/22/18 at 09:00 Magnesium Hydroxide (Milk Of Mag) 30 ml DAILY PO Last administered on 11/06/18 09:19; Admin Dose 30 ML; Start 10/22/18 at 09:00 Oxycodone HCl (Oxycontin) 20 mg Q12 PO Last administered on 11/06/18 09:18; Admin Dose 20 MG; Start 10/22/18 at 09:00 Pantoprazole (Protonix Tab) 40 mg AC BREAKFAST PO Last administered on 11/06/18 09:13; Admin Dose 40 MG; Start 10/22/18 at 07:25 Polyethylene Glycol (Miralax) 17 gm DAILY PO Last administered on 11/06/18 09:19; Admin Dose 17 GM; Start 10/22/18 at 09:00 Simethicone (Mylicon) 80 mg Q8H PO Last administered on 11/06/18 15:13; Admin Dose 80 MG; Start 10/21/18 at 23:30 Spironolactone (Aldactone) 50 mg DAILY PO Last administered on 11/06/18 09:13; Admin Dose 50 MG; Start 10/22/18 at 09:00 Zolpidem Tartrate (Ambien) 10 mg HS PRN PO INSOMNIA Last administered on 11/04/18 23:51; Admin Dose 10 MG; Start 10/21/18 at 23:30 Morphine Sulfate (morphine) 2 mg Q4H PRN IV SEVERE PAIN LEVEL 7-10 Last administered on 10/23/18 14:15; Admin Dose 2 MG; Start 10/22/18 at 01:30 Phenol (Cepastat Lozenge) 1 lozenge Q1H PRN MT sore throat Last administered on 10/31/18 18:34; Admin Dose 1 LOZENGE; Start 10/27/18 at 21:30 Fluticasone Propionate (Flonase 0.05% Nasal) 1 spray BID NASAL Last administered on 11/06/18 09:24; Admin Dose 1 SPRAY; Start 10/29/18 at 21:00 Budesonide (Pulmicort (Neb)) 0.5 mg BID RESP THERAPY HHN Last administered on 11/06/18 08:36; Admin Dose 0.5 MG; Start 10/30/18 at 09:00 Metolazone (Zaroxolyn) 2.5 mg BID@7030,1920 PO Last administered on 11/06/18 05:10; Admin Dose 2.5 MG; Start 11/01/18 at 05:30 Furosemide (Lasix) 40 mg BID DIURETICS IV Last administered on 11/04/18 06:18; Admin Dose 40 MG; Start 11/01/18 at 18:00; Status Hold Guaifenesin/ Codeine Phosphate (Robitussin Ac Liquid Cup) 10 ml Q4 PO Last administered on 11/06/18 15:13; Admin Dose 10 ML; Start 11/02/18 at 09:00 Enoxaparin Sodium (Lovenox) 40 mg DAILY SC Last administered on 11/06/18 09:21; Admin Dose 40 MG; Start 11/02/18 at 09:00 Potassium Chloride (Klor-Con 10) 10 meq BID PO Last administered on 11/06/18 09:13; Admin Dose 10 MEQ; Start 11/03/18 at 09:00 Acetazolamide (Diamox) 500 mg BID IV Last administered on 11/06/18 09:15; Admin Dose 500 MG; Start 11/06/18 at 09:00 KAMILA TERESA November 06, 2018 15:45
[2018-11-06 19:55] VITALS: BP 105/71; PULSE 86; RESP 18
--- NOTE | 2018-11-06 20:38 | PN ---
Date/Time of Note Date/Time of Note DATE: 11/06/18 TIME: 20:34 Assessment/Plan VTE Prophylaxis Risk score (from Ns)>0 risk: 14 SCD applied (from Ns): No SCD contraindicated: other Pharmacological prophylaxis: LMWH Lines/Catheters IV Catheter Type (from [facility]): PORT A CATH Central line still needed: No Urinary Cath still in place: No Reason Cath still needed: urinary retention Assessment/Plan Assessment/Plan 1. PRIMARY ADENOCARCINOMA of the left breast. MULTIPLE BONY METS, PULMONARY METS;LIVER METS CHEMO ON HOLD; PT HAS A VERY GOOD RESPONSE TO CHEMO AND AI 2. Severe pain in the interscapular and lumbar sacral area most probably metastatic lesion possible femoral fracture. pathologic fracture of T9 with 60% of loss of height. Neurosurgical f/u. 3. Obesity. 4. Weight loss 60 pounds during the last 2 years by diet 5. PMS. 6. Myopia. 7. Anemia chronic disease with a drop of her hematocrit to 27; Latest results 28. Will recheck tomorrow;Leukopenia.Thrombocytopenia; 8. Anxiety disorder. Claustrophobia. Increase Ativan to 1 mg every 8 as needed at Lexapro 10 mg daily. 9. Posttraumatic stress disorder. 10. Pain in the left forearm with a history of fracture of ulna and radius. 11. Tachycardia 12. Hypoxemia at night marginal improved after 2 L of nasal cannula oxygen. 13. Deconditioning 14. 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 MRI: 09/28/18:diffuse osseous metastatic disease with multiple pathologic compression fractures at least involving the T4, T5, T7, T9 and T11 levels. There is likely mild cortical breakthrough at several levels resulting in mild central canal narrowing. No gross evidence of cord compression is seen.. 15. Pain syndrome. Today the most painful zone is in the right hip area. 16. Hyponatremia-corrected; today and hold Aldactone today. 17. Leucopenia-improved. 18. Neutropenia with occasional fever and chills. Last chemotherapy 5 days ago. 19. Hypoalbuminemia. 20.Right sided cp after catheter insertion and correction less discomfort. 21. Decreased edema both lower extremities with [id number] with Pleural and Pericardial effusion. 22. pain syndrome 23.bilateral pleural effusions ; s/p left thoracentesis, During the procedure the probe of the u/s was placed to the right side of the chest which showed only minimal amount of liquid on the right pleural cavity. Reaccumulation of the pleural fluid. Plan to tap from the right side tomorrow a.m. 24. Systolic over diastolic congestive heart failure with a right more than left lower extremity swelling with no DVT in latest venous Doppler. 25. Swelling of the left forearm-persist. Cellulitis of the left forearm with increased edema anteriorly.-Today it is less edematous 26. Pathologic fracture of the right hip;s/p hemiarthroplasty of right hip . 27. Dizziness 28. Chills. 29. Memory impairment. 30. Upper respiratory infection pharyngitis with dry cough. 31. Decreased voice with wheezing. Result Diagram: 11/06/18 0436 Results 24hrs Laboratory Tests Test 11/06/18 04:36 Sodium Level 134 L Potassium Level 3.5 Chloride Level 95 L Carbon Dioxide Level 31 Anion Gap 8 Blood Urea Nitrogen 26 H Creatinine 0.82 Est Glomerular Filtrat Rate mL/min > 60 Glucose Level 126 Calcium Level 8.9 Phosphorus Level 5.0 H Magnesium Level 2.3 Carcinoembryonic Antigen 3.1 CA 125 Antigen 15.0 Subjective 24 Hr Interval Summary Free Text/Dictation Persistent cough. Less intense than yesterday. Mild amount of sputum production. I feel I am swallowing when sputum is coming but I cannot expectorate. Posterior chills. No fever. I am able to walk with a walker about 10-15 m. I am getting tired very easily Constitutional: improved, chills, poor po, requiring O2; No no complaints, No diaphoresis, No disoriented, No febrile, No requiring IVF, No other Eyes: No no complaints, No pain, No discharge, No redness, No visual change, No other ENT: congestion, dysphagia; No no complaints, No bleeding, No pain, No discharge, No sore throat, No other Respiratory: cough; No no complaints, No pain, No pleuritic pain, No shortness of breath, No sputum, No wheezing, No other Cardiovascular: chest pain, edema, orthopenea, palpitations, paroxysmal nocturnal dyspnea; No no complaints, No lightheadedness, No other Gastrointestinal: constipation, decreased appetite, flatus, nausea, passing stool Genitourinary: dysuria, flank pain; No no complaints, No bleeding, No discharge, No hematuria, No other Musculoskeletal: back pain, bone/joint pain, neck pain; No no complaints, No restricted range of motion, No swelling, No other Skin: bruising, pruritis, rash Neurologic: confusion, dizziness, headache, syncope; No no complaints, No focal-weakness, No seizure, No other Lymphatic: adenopathy, tender nodes, lymphadema; No no complaints, No other Psychological: anxiety, depression; No no complaints, No nl mood/affect, No confusion, No suicidal, No other Immunologic: No no complaints, No immunodeficiency, No pruritis, No rhinitis, No urticaria, No other Exam/Review of Systems Exam Vitals Vital Signs Date Temp Pulse Resp B/P (MAP) Pulse Ox O2 O2 Flow FiO2 Time Delivery Rate 11/06/18 81 18 99 21 16:54 11/06/18 98.3 114/63 Room Air 15:30 (80) 11/06/18 2.0 08:35 Intake and Output 11/05/18 11/05/18 11/06/18 1515:00 23:00 07:00 IntakeIntake Total 300 ml 350 ml BalanceBalance 300 ml 350 ml Constitutional: alert, oriented, well developed, distress, frail, obese Psych: anxiety, depression; No no complaints, No nl mood/affect, No confusion, No suicidal, No other Head: normocephalic, atraumatic; No lacerations, No hematomas, No other Eyes: EOMI, nl lids, PERRL; No nl conjunctiva, No nl sclera, No icteric, No fundi, disc, No other ENMT: nl external ears & nose, nl nasal mucosa & septum Neck: jvd, bruits, thyromegaly, nuchal rigidity; No supple, No non-tender, No masses, No other Respiratory: congested cough, diminished breath sounds (Left to the right side of the lung.) Cardiovascular: regular rate and rhythm, nl pulses, edema (Right lower extremity and left upper extremity more prominent but overall decreased comparing with yesterday.), systolic murmur; No bruits, No diastolic murmur, No gallop, No irregular rhythm, No jugular venous distention (JVD), No murmurs/extra sounds, No rub, No S3, No S4, No other Gastrointestinal: soft, ascites, bowel sounds, distended; No nl liver, spleen, No non-tender, No firm, No hepatomegaly, No mass, No rebound or guarding, No splenomegaly, No surgical scars, No tender, No other Musculoskeletal: joint tenderness, muscle tone, muscle weakness, range of motion; No nl extremities to inspection, No nl gait and stance, No spine non-tender, No swelling, No other Extremities: edema, pitting pedal edema 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: PARAOPTOMETRIC 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, nl speech; No nl mental status, No nl strength, No confused, No DTR's symmetric, No focal weakness, No lethargic, No numbness, No reflexes, No unresponsive, No other Skin: rash or lesions, diaphoresis, ecchymosis; No nl turgor, No laceration, No puncture, No other Lymph: No nl lymph nodes, No enlarged, No nontender, No other Results Results 24hrs Laboratory Tests Test 11/06/18 04:36 Sodium Level 134 L Potassium Level 3.5 Chloride Level 95 L Carbon Dioxide Level 31 Anion Gap 8 Blood Urea Nitrogen 26 H Creatinine 0.82 Est Glomerular Filtrat Rate mL/min > 60 Glucose Level 126 Calcium Level 8.9 Phosphorus Level 5.0 H Magnesium Level 2.3 Carcinoembryonic Antigen 3.1 CA 125 Antigen 15.0 Medications Medication Current Medications Acetaminophen (Tylenol Tab) 650 mg Q4H PRN PO PAIN LEVEL 1-10/10 Last administered on 10/29/18at 17:15; Admin Dose 650 MG; Start 10/21/18 at 23:30 Anastrozole (Arimidex) 1 mg DAILY PO Last administered on 11/06/18at 09:14; Admin Dose 1 MG; Start 10/22/18 at 09:00 Benazepril HCl (Lotensin) 5 mg DAILY PO Last administered on 10/30/18at 09:27; Admin Dose 5 MG; Start 10/22/18 at 09:00; Status Hold Bisacodyl (Dulcolax Supp) 10 mg Q8 IN Last administered on 10/31/18at 16:42; Admin Dose 10 MG; Start 10/22/18 at 06:00 Carvedilol (Coreg) 3.125 mg BID PO Last administered on 11/06/18at 09:14; Admin Dose 3.125 MG; Start 10/22/18 at 09:00 Docusate Sodium (Colace) 100 mg BID PO Last administered on 11/06/18 09:13; Admin Dose 100 MG; Start 10/22/18 at 09:00 Escitalopram Oxalate (Lexapro) 10 mg DAILY PO Last administered on 11/06/18 09:13; Admin Dose 10 MG; Start 10/22/18 at 09:00 Albuterol/ Ipratropium (Duoneb) 3 ml Q8H RESP THERAPY HHN Last administered on 11/06/18 16:53; Admin Dose 3 ML; Start 10/22/18 at 00:00 Loratadine (Claritin) 10 mg DAILY PO Last administered on 11/06/18 09:14; Admin Dose 10 MG; Start 10/22/18 at 09:00 Magnesium Hydroxide (Milk Of Mag) 30 ml DAILY PO Last administered on 11/06/18 09:19; Admin Dose 30 ML; Start 10/22/18 at 09:00 Oxycodone HCl (Oxycontin) 20 mg Q12 PO Last administered on 11/06/18 09:18; Admin Dose 20 MG; Start 10/22/18 at 09:00 Pantoprazole (Protonix Tab) 40 mg AC BREAKFAST PO Last administered on 11/06/18 09:13; Admin Dose 40 MG; Start 10/22/18 at 07:25 Polyethylene Glycol (Miralax) 17 gm DAILY PO Last administered on 11/06/18 09:19; Admin Dose 17 GM; Start 10/22/18 at 09:00 Simethicone (Mylicon) 80 mg Q8H PO Last administered on 11/06/18 15:13; Admin Dose 80 MG; Start 10/21/18 at 23:30 Spironolactone (Aldactone) 50 mg DAILY PO Last administered on 11/06/18 09:13; Admin Dose 50 MG; Start 10/22/18 at 09:00 Zolpidem Tartrate (Ambien) 10 mg HS PRN PO INSOMNIA Last administered on 11/04/18 23:51; Admin Dose 10 MG; Start 10/21/18 at 23:30 Morphine Sulfate (morphine) 2 mg Q4H PRN IV SEVERE PAIN LEVEL 7-10 Last administered on 10/23/18 14:15; Admin Dose 2 MG; Start 10/22/18 at 01:30 Phenol (Cepastat Lozenge) 1 lozenge Q1H PRN MT sore throat Last administered on 10/31/18 18:34; Admin Dose 1 LOZENGE; Start 10/27/18 at 21:30 Fluticasone Propionate (Flonase 0.05% Nasal) 1 spray BID NASAL Last administered on 11/06/18 09:24; Admin Dose 1 SPRAY; Start 10/29/18 at 21:00 Budesonide (Pulmicort (Neb)) 0.5 mg BID RESP THERAPY HHN Last administered on 11/06/18 08:36; Admin Dose 0.5 MG; Start 10/30/18 at 09:00 Metolazone (Zaroxolyn) 2.5 mg BID@0530,1730 PO Last administered on 11/06/18 18:28; Admin Dose 2.5 MG; Start 11/01/18 at 05:30 Furosemide (Lasix) 40 mg BID DIURETICS IV Last administered on 11/04/18 06:18; Admin Dose 40 MG; Start 11/01/18 at 18:00; Status Hold Guaifenesin/ Codeine Phosphate (Robitussin Ac Liquid Cup) 10 ml Q4 PO Last administered on 11/06/18 18:26; Admin Dose 10 ML; Start 11/02/18 at 09:00 Enoxaparin Sodium (Lovenox) 40 mg DAILY SC Last administered on 11/06/18 09:21; Admin Dose 40 MG; Start 11/02/18 at 09:00 Potassium Chloride (Klor-Con 10) 10 meq BID PO Last administered on 11/06/18 09:13; Admin Dose 10 MEQ; Start 11/03/18 at 09:00 Acetazolamide (Diamox) 500 mg BID IV Last administered on 11/06/18 09:15; Admin Dose 500 MG; Start 11/06/18 at 09:00 RUSS JEROME MD November 06, 2018 20:38
--- NOTE | 2018-11-06 22:01 | CONS ---
Assessment/Plan Assessment/Plan Hospital Course (Demo Recall) METASTATIC BREAST CANCER WITH PRIMARY ADENOCARCINOMA IN the left breast. MULTIPLE BONY METS, PULMONARY METS, LIVER METS CHEMO ON HOLD PT HAS A VERY GOOD RESPONSE TO CHEMO AND AI CONT AI FOR NOW CT ABD FOR RESTAGING 08.27.18- noted , stable Leukopenia- post chemo, FLUCTUATING WITH RECENT WORSENING- post NEUPOGEN monitor closely post Neutropenia with occasional fever and chills. - resolved Anemia chronic disease SOB PLEURAL EFFUSIONS, NEG CYTOLOGY POST thoracentesis Fluid overload diuretic cardiology F-UP Severe pain in the interscapular and lumbar sacral area most probably metastatic lesion possible femoral fracture. pathologic fracture of T9 with 60% of loss of height. Bony pain with multiple bony mets post XRT will d/w dr Ocampo Obesity. Weight loss 60 pounds during the last 2 years COUGH, Upper respiratory infection pharyngitis with dry cough. POST ATB PMS. Myopia. Anxiety disorder. Claustrophobia. Posttraumatic stress disorder. Pain in the left forearm with a history of fracture of ulna and radius. Tachycardia Hypoxemia at night marginal improved after 2 L of nasal cannula oxygen. Deconditioning Pain syndrome. Today the most painful zone is in the right hip area. X-ray did not show any fractures. Hyponatremia- resolved Hypoalbuminemia Right sided cp after catheter insertion and correction less discomfort. Decreased edema both lower extremities with hypotension-improving Swelling of the left forearm-persist. Consultation Date/Type/Reason Admit Date/Time October 21, 2018 at 17:39 Initial Consult Date 10/21/18 Type of Consult [facility] Requesting Provider: RUSS JEROME MD Date/Time of Note DATE: 11/06/18 TIME: 21:59 24 HR Interval Summary Free Text/Dictation all noted NAD Exam/Review of Systems Exam Vitals Vital Signs Date Temp Pulse Resp B/P (MAP) Pulse Ox O2 O2 Flow FiO2 Time Delivery Rate 11/06/18 91 20 92 21 20:39 11/06/18 98.3 114/63 Room Air 15:30 (80) 11/06/18 2.0 08:35 Intake and Output 11/05/18 11/05/18 11/06/18 1515:00 23:00 07:00 IntakeIntake Total 300 ml 350 ml BalanceBalance 300 ml 350 ml Exam HEENT: Head is normocephalic. NECK: Supple. HEART: Regular rate. LUNGS: Show diminished breath sounds at the base., COARSE, FEW RHONCHI ABDOMEN: Soft, nontender to palpation without rebound or guarding. EXTREMITIES: Negative for clubbing, cyanosis. Positive edema, improving. DERMATOLOGIC: No rashes. MUSCULOSKELETAL: No joint effusion. NEUROLOGIC: No change in exam. Results Result Diagram: 11/06/18 0436 Results 24hrs Laboratory Tests Test 11/06/18 04:36 Sodium Level 134 L Potassium Level 3.5 Chloride Level 95 L Carbon Dioxide Level 31 Anion Gap 8 Blood Urea Nitrogen 26 H Creatinine 0.82 Est Glomerular Filtrat Rate mL/min > 60 Glucose Level 126 Calcium Level 8.9 Phosphorus Level 5.0 H Magnesium Level 2.3 Carcinoembryonic Antigen 3.1 CA 125 Antigen 15.0 Medications Medication Current Medications Acetaminophen (Tylenol Tab) 650 mg Q4H PRN PO PAIN LEVEL 1-10/10 Last administered on 10/29/18 17:15; Admin Dose 650 MG; Start 10/21/18 at 23:30 Anastrozole (Arimidex) 1 mg DAILY PO Last administered on 11/06/18 09:14; Admin Dose 1 MG; Start 10/22/18 at 09:00 Benazepril HCl (Lotensin) 5 mg DAILY PO Last administered on 10/30/18 09:27; Admin Dose 5 MG; Start 10/22/18 at 09:00; Status Hold Bisacodyl (Dulcolax Supp) 10 mg Q8 [place] Last administered on 10/31/18at 16:42; Admin Dose 10 MG; Start 10/22/18 at 06:00 Carvedilol (Coreg) 3.125 mg BID PO Last administered on 11/06/18at 21:57; Admin Dose 3.125 MG; Start 10/22/18 at 09:00 Docusate Sodium (Colace) 100 mg BID PO Last administered on 11/06/18 21:57; Admin Dose 100 MG; Start 10/22/18 at 09:00 Escitalopram Oxalate (Lexapro) 10 mg DAILY PO Last administered on 11/06/18at 09:13; Admin Dose 10 MG; Start 10/22/18 at 09:00 Albuterol/ Ipratropium (Duoneb) 3 ml Q8H RESP THERAPY HHN Last administered on 11/06/18 20:38; Admin Dose 3 ML; Start 10/22/18 at 00:00 Loratadine (Claritin) 10 mg DAILY PO Last administered on 11/06/18 09:14; Admin Dose 10 MG; Start 10/22/18 at 09:00 Magnesium Hydroxide (Milk Of Mag) 30 ml DAILY PO Last administered on 11/06/18 09:19; Admin Dose 30 ML; Start 10/22/18 at 09:00 Oxycodone HCl (Oxycontin) 20 mg Q12 PO Last administered on 11/06/18 21:57; Ad min Dose 20 MG; Start 10/22/18 at 09:00 Pantoprazole (Protonix Tab) 40 mg AC BREAKFAST PO Last administered on 11/06/18 09:13; Admin Dose 40 MG; Start 10/22/18 at 07:25 Polyethylene Glycol (Miralax) 17 gm DAILY PO Last administered on 11/06/18 09:19; Admin Dose 17 GM; Start 10/22/18 at 09:00 Simethicone (Mylicon) 80 mg Q8H PO Last administered on 11/06/18 15:13; Admin Dose 80 MG; Start 10/21/18 at 23:30 Spironolactone (Aldactone) 50 mg DAILY PO Last administered on 11/06/18 09:13; Admin Dose 50 MG; Start 10/22/18 at 09:00 Zolpidem Tartrate (Ambien) 10 mg HS PRN PO INSOMNIA Last administered on 11/04/18 23:51; Admin Dose 10 MG; Start 10/21/18 at 23:30 Morphine Sulfate (morphine) 2 mg Q4H PRN IV SEVERE PAIN LEVEL 7-10 Last administered on 10/23/18 14:15; Admin Dose 2 MG; Start 10/22/18 at 01:30 Phenol (Cepastat Lozenge) 1 lozenge Q1H PRN MT sore throat Last administered on 10/31/18 18:34; Admin Dose 1 LOZENGE; Start 10/27/18 at 21:30 Fluticasone Propionate (Flonase 0.05% Nasal) 1 spray BID NASAL Last administered on 11/06/18 21:58; Admin Dose 1 SPRAY; Start 10/29/18 at 21:00 Budesonide (Pulmicort (Neb)) 0.5 mg BID RESP THERAPY HHN Last administered on 11/06/18 20:38; Admin Dose 0.5 MG; Start 10/30/18 at 09:00 Metolazone (Zaroxolyn) 2.5 mg BID@0530,1730 PO Last administered on 11/06/18 18:28; Admin Dose 2.5 MG; Start 11/01/18 at 05:30 Furosemide (Lasix) 40 mg BID DIURETICS IV Last administered on 11/04/18 06:18; Admin Dose 40 MG; Start 11/01/18 at 18:00; Status Hold Guaifenesin/ Codeine Phosphate (Robitussin Ac Liquid Cup) 10 ml Q4 PO Last administered on 11/06/18 21:57; Admin Dose 10 ML; Start 11/02/18 at 09:00 Enoxaparin Sodium (Lovenox) 40 mg DAILY SC Last administered on 11/06/18 09:21; Admin Dose 40 MG; Start 11/02/18 at 09:00 Potassium Chloride (Klor-Con 10) 10 meq BID PO Last administered on 11/06/18 21:57; Admin Dose 10 MEQ; Start 11/03/18 at 09:00 Acetazolamide (Diamox) 500 mg BID IV Last administered on 11/06/18 21:57; Admin Dose 500 MG; Start 11/06/18 at 09:00 DES DUNAWAY MD November 06, 2018 22:01
[2018-11-07] VITALS (10 sets, daily range): BP systolic 87–129; BP diastolic 59–80; PULSE 72–87; RESP 16–19
[2018-11-07] MEDS: GUAIFENESIN/CODEINE 5ML CUP PO SCH ×7 (00:07→20:30)
[2018-11-07] MEDS: METOLAZONE 2.5 MG TAB PO SCH ×2 (04:49→18:10)
[2018-11-07] MEDS: BISACODYL 10 MG SUPP PR SCH ×3 (05:18→21:33)
[2018-11-07] MEDS: ALBUTEROL/IPRATROPIUM (NEB) 3 ML AMP HHN SCH ×2 (08:11→16:48)
[2018-11-07] MEDS ORDERED: POTASSIUM CHLORIDE (SR) 20 MEQ TAB PO STA ×2 (08:12→11:46)
[2018-11-07] MEDS: BUDESONIDE (NEB) 0.5MG/2ML AMP HHN SCH ×2 (08:13→20:09)
[2018-11-07] MEDS: oxyCODONE (CR) 20 MG TAB [oxyCONTIN] PO SCH ×2 (08:16→20:31)
[2018-11-07] MEDS: SPIRONOLACTONE 50 MG TAB PO SCH (08:16)
[2018-11-07] MEDS: DOCUSATE SODIUM 100 MG CAP PO SCH ×2 (08:16→20:30)
[2018-11-07] MEDS: PANTOPRAZOLE (EC) 40 MG TAB PO SCH (08:16)
[2018-11-07] MEDS: LORATADINE 10 MG TAB PO SCH (08:16)
[2018-11-07] MEDS: ESCITALOPRAM 10 MG TAB PO SCH (08:16)
[2018-11-07] MEDS: POLYETHYLENE GLYCOL 17 GM PACKET PO SCH (08:17)
[2018-11-07] MEDS: POTASSIUM CHLORIDE (SR) 10 MEQ TAB PO SCH ×2 (08:17→20:34)
[2018-11-07] MEDS: ANASTROZOLE 1 MG TAB PO SCH (08:18)
[2018-11-07] MEDS: FLUTICASONE 0.05% 16 GM NAS SPRAY NASAL SCH ×2 (08:22→20:35)
[2018-11-07] MEDS: MAGNESIUM HYDROXIDE 30ML CUP PO SCH (08:25)
--- NOTE | 2018-11-07 08:46 | PN ---
DATE: 11/07/2018 SUBJECTIVE: The patient is stable, no events overnight. Patient is pending thoracentesis today. OBJECTIVE: VITAL SIGNS: Blood pressure is 102/60, respiration 18, pulse 78, temperature 98.0. HEENT: Head is normocephalic. NECK: Supple. HEART: Regular rate. LUNGS: Show diminished breath sounds at the base. ABDOMEN: Soft, nontender to palpation. No rebound or guarding. EXTREMITIES: Negative for clubbing, cyanosis, positive edema left upper extremity, right lower extre mity. DERMATOLOGIC: No rashes. MUSCULOSKELETAL: No joint effusions. NEUROLOGIC: No change in exam. MEDICATIONS: Have been reviewed. LABORATORY DATA: Has been reviewed. ASSESSMENT AND PLAN: 1. Volume overload. Etiology is likely secondary to diastolic heart failure, questionable portal h ypertension, nephrogenic stress secondary to metastatic disease, questionable nephrogenic bladder can cer. The patient is currently on metolazone and Diamox. Loop diuretics were held due to alkalosis. The patient's alkalosis is improving. Will continue another 24 hours of Diamox and consider resumin g of diuretics. 2. Hypokalemia. Continue to monitor and replete. Continue Aldactone. 3. Alkalosis. Continue Diamox. 4. Nonoliguric acute kidney injury. Etiology is secondary to hemodynamics. Renal function is impro bill. Continue to monitor. 5. Mineral bone disorder. Monitor calcium and phosphorus levels. 6. Breast cancer with metastasis to the liver and spine. Continue to monitor. 7. Hip fracture, status post arthroplasty. 8. Pleural effusion. Patient is pending thoracentesis. 9. Chronic pain syndrome. Continue current pain regimen. Dictated By: ANDRÉS YO/NTS Conf#: [id number] DID#: [id number] CC: RUSS JEROME MD;*EndCC*
[2018-11-07] MEDS: ACETAZOLAMIDE 500 MG INJ IV SCH ×4 (09:00→20:37)
[2018-11-07] MEDS: ENOXAPARIN 40 MG/0.4 ML SYG SC SCH ×2 (09:00→13:26)
[2018-11-07] MEDS ORDERED: LIDOCAINE 1% (MPF) 5 ML VIAL ONE (10:52)
--- NOTE | 2018-11-07 11:47 | PN ---
Date/Time of Note Date/Time of Note DATE: 11/07/18 TIME: 11:40 Assessment/Plan VTE Prophylaxis Risk score (from Nsg)>0 risk: 15 SCD applied (from Ns): No SCD contraindicated: other (on) Pharmacological prophylaxis: LMWH Lines/Catheters IV Catheter Type (from Nrsg): Peripheral IV Central line still needed: Yes Urinary Cath still in place: No Reason Cath still needed: urinary retention Assessment/Plan Assessment/Plan 1. PRIMARY ADENOCARCINOMA of the left breast. MULTIPLE BONY METS, PULMONARY METS;LIVER METS CHEMO ON HOLD; PT HAS A VERY GOOD RESPONSE TO CHEMO AND AI 2. Severe pain in the interscapular and lumbar sacral area most probably metastatic lesion possible femoral fracture. pathologic fracture of T9 with 60% of loss of height. Neurosurgical f/u. 3. Obesity. 4. Weight loss 60 pounds during the last 2 years by diet 5. PMS. 6. Myopia. 7. Anemia chronic disease with a drop of her hematocrit to 27; Latest results 28. Will recheck tomorrow;Leukopenia.Thrombocytopenia; 8. Anxiety disorder. Claustrophobia. Increase Ativan to 1 mg every 8 as needed at Lexapro 10 mg daily. 9. Posttraumatic stress disorder. 10. Pain in the left forearm with a history of fracture of ulna and radius. 11. Tachycardia 12. Hypoxemia at night marginal improved after 2 L of nasal cannula oxygen. 13. Deconditioning 14. 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 MRI: 09/28/18:diffuse osseous metastatic disease with multiple pathologic compression fractures at least involving the T4, T5, T7, T9 and T11 levels. There is likely mild cortical breakthrough at several levels resulting in mild central canal narrowing. No gross evidence of cord compression is seen.. 15. Pain syndrome. Today the most painful zone is in the right hip area. 16. Hyponatremia-corrected; today and hold Aldactone today. 17. Leucopenia-improved. 18. Neutropenia with occasional fever and chills. Last chemotherapy 5 days ago. 19. Hypoalbuminemia. 20.Right sided cp after catheter insertion and correction less discomfort. 21. Decreased edema both lower extremities with [id number] with Pleural and Pericardial effusion. 22. pain syndrome 23.bilateral pleural effusions ; s/p recurrent left thoracentesis Reac cumulation of the pleural fluid. 24. Systolic over diastolic congestive heart failure with a right more than left lower extremity swelling with no DVT in latest venous Doppler. 25. Swelling of the left forearm-persist. Cellulitis of the left forearm with decreased edema anteriorly.-Today it is less edematous 26. Pathologic fracture of the right hip;s/p hemiarthroplasty of right hip . 27. Dizziness 28. Chills. 29. Memory impairment. 30. Upper respiratory infection pharyngitis with dry cough. 31. Decreased voice with wheezing. 32. Headaches Result Diagram: 11/07/18 0446 Results 24hrs Laboratory Tests Test 11/07/18 04:46 Sodium Level 136 Potassium Level 3.4 L Chloride Level 99 Carbon Dioxide Level 31 Anion Gap 6 Blood Urea Nitrogen 26 H Creatinine 0.87 Est Glomerular Filtrat Rate mL/min > 60 Glucose Level 114 Calcium Level 9.0 Phosphorus Level 5.2 H Magnesium Level 2.4 Subjective 24 Hr Interval Summary Free Text/Dictation Headaches. Just came back from radiology department after thoracentesis. Doing well. Constitutional: improved, poor po, requiring O2; No no complaints, No chills, No diaphoresis, No disoriented, No febrile, No requiring IVF, No other Eyes: No no complaints, No pain, No discharge, No redness, No visual change, No other ENT: congestion, discharge; No no complaints, No bleeding, No pain, No dysphagia, No sore throat, No other Respiratory: cough, pleuritic pain, shortness of breath; No no complaints, No pain, No sputum, No wheezing, No other Cardiovascular: chest pain, edema; No no complaints, No lightheadedness, No orthopenea, No palpitations, No paroxysmal nocturnal dyspnea, No other Gastrointestinal: pain, constipation, decreased appetite, nausea, passing stool; No no complaints, No blood, No diarrhea, No flatus, No vomiting, No other Genitourinary: dysuria, flank pain; No no complaints, No bleeding, No discharge, No hematuria, No other Musculoskeletal: back pain, bone/joint pain; No no complaints, No neck pain, No restricted range of motion, No swelling, No other Skin: pruritis, rash; No no complaints, No bruising, No erythema, No laceration, No skin lesions, No other Neurologic: confusion, dizziness; No no complaints, No focal-weakness, No headache, No syncope, No seizure, No other Endocrine: polyuria, dry skin; No no complaints, No polydypsia, No temp intolerance, No other Lymphatic: No no complaints, No adenopathy, No tender nodes, No lymphadema, No other Psychological: anxiety, confusion; No no complaints, No nl mood/affect, No depression, No suicidal, No other Immunologic: No no complaints, No immunodeficiency, No pruritis, No rhinitis, No urticaria, No other Exam/Review of Systems Exam Vitals Vital Signs Date Temp Pulse Resp B/P (MAP) Pulse Ox O2 O2 Flow FiO2 Time Delivery Rate 11/07/18 75 18 113/76 Nasal 2.0 10:50 (88) Cannula 11/07/18 94 10:15 11/07/18 98.3 09:01 11/07/18 21 08:12 Intake and Output 11/06/18 11/06/18 11/07/18 1515:00 23:00 07:00 IntakeIntake Total 300 ml 200 ml 200 ml BalanceBalance 300 ml 200 ml 200 ml Constitutional: alert, oriented, well developed, distress, frail, obese Psych: anxiety, depression; No no complaints, No nl mood/affect, No confusion, No suicidal, No other Head: normocephalic, atraumatic, lacerations; No hematomas, No other Eyes: EOMI, nl lids, PERRL; No nl conjunctiva, No nl sclera, No icteric, No fundi, disc, No other ENMT: nl external ears & nose, nl nasal mucosa & septum; No nl lips & teeth, No mucosa pink and moist, No intubated, No tympanic membranes, No other Neck: jvd, bruits, thyromegaly, nuchal rigidity; No supple, No non-tender, No masses, No other Respiratory: congested cough, crackles/rales, diminished breath sounds, respirations; No clear to auscultation, No normal air movement, No intercostal retraction, No labored breathing, No tactile fremitus, No wheezing, No other Cardiovascular: regular rate and rhythm, bruits, edema (Edema left upper extremity distally and right lower extremity.), jugular venous distention (JVD), systolic murmur; No nl pulses, No diastolic murmur, No gallop, No irregular rhythm, No murmurs/extra sounds, No rub, No S3, No S4, No other Gastrointestinal: nl liver, spleen, bowel sounds, distended, rebound or guarding; No soft, No non-tender, No ascites, No firm, No hepatomegaly, No mass, No splenomegaly, No surgical scars, No tender, No other Genitourinary - Female: nl adnexae, nl external genitalia; No CMT, No CVA tenderness, No uterus, No other Musculoskeletal: joint tenderness, muscle tone, muscle weakness; No nl extremities to inspection, No nl gait and stance, No range of motion, No spine non-tender, No swelling, No other Extremities: pitting pedal edema; No normal pulses, No calf tenderness, No cyanosis, No clubbing, No edema, No palpable cord, No tenderness, No other Neurological: 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, confused, numbness; No nl mental status, No nl speech, No nl strength, No DTR's symmetric, No focal weakness, No lethargic, No reflexes, No unresponsive, No other Skin: rash or lesions; No nl turgor, No diaphoresis, No ecchymosis, No laceration, No puncture, No other Lymph: No nl lymph nodes, No enlarged, No nontender, No other Results Results 24hrs Laboratory Tests Test 11/07/18 04:46 Sodium Level 136 Potassium Level 3.4 L Chloride Level 99 Carbon Dioxide Level 31 Anion Gap 6 Blood Urea Nitrogen 26 H Creatinine 0.87 Est Glomerular Filtrat Rate mL/min > 60 Glucose Level 114 Calcium Level 9.0 Phosphorus Level 5.2 H Magnesium Level 2.4 Medications Medication Current Medications Acetaminophen (Tylenol Tab) 650 mg Q4H PRN PO PAIN LEVEL 1-10/10 Last administered on 10/29/18at 17:15; Admin Dose 650 MG; Start 10/21/18 at 23:30 Anastrozole (Arimidex) 1 mg DAILY PO Last administered on 11/07/18at 08:18; Admin Dose 1 MG; Start 10/22/18 at 09:00 Benazepril HCl (Lotensin) 5 mg DAILY PO Last administered on 10/30/18at 09:27; Admin Dose 5 MG; Start 10/22/18 at 09:00; Status Hold Bisacodyl (Dulcolax Supp) 10 mg Q8 UT Last administered on 10/31/18 16:42; Admin Dose 10 MG; Start 10/22/18 at 06:00 Carvedilol (Coreg) 3.125 mg BID PO Last administered on 11/06/18 21:57; Admin Dose 3.125 MG; Start 10/22/18 at 09:00 Docusate Sodium (Colace) 100 mg BID PO Last administered on 11/07/18 08:16; Admin Dose 100 MG; Start 10/22/18 at 09:00 Escitalopram Oxalate (Lexapro) 10 mg DAILY PO Last administered on 11/07/18 08:16; Admin Dose 10 MG; Start 10/22/18 at 09:00 Albuterol/ Ipratropium (Duoneb) 3 ml Q8H RESP THERAPY HHN Last administered on 11/07/18 08:11; Admin Dose 3 ML; Start 10/22/18 at 00:00 Loratadine (Claritin) 10 mg DAILY PO Last administered on 11/07/18 08:16; Admin Dose 10 MG; Start 10/22/18 at 09:00 Magnesium Hydroxide (Milk Of Mag) 30 ml DAILY PO Last administered on 11/07/18 08:25; Admin Dose 30 ML; Start 10/22/18 at 09:00 Oxycodone HCl (Oxycontin) 20 mg Q12 PO Last administered on 11/07/18 08:16; Admin Dose 20 MG; Start 10/22/18 at 09:00 Pantoprazole (Protonix Tab) 40 mg AC BREAKFAST PO Last administered on 11/07/18 08:16; Admin Dose 40 MG; Start 10/22/18 at 07:25 Polyethylene Glycol (Miralax) 17 gm DAILY PO Last administered on 11/07/18 08:17; Admin Dose 17 GM; Start 10/22/18 at 09:00 Simethicone (Mylicon) 80 mg Q8H PO Last administered on 11/07/18 08:17; Admin Dose 80 MG; Start 10/21/18 at 23:30 Spironolactone (Aldactone) 50 mg DAILY PO Last administered on 11/07/18 08:16; Admin Dose 50 MG; Start 10/22/18 at 09:00 Zolpidem Tartrate (Ambien) 10 mg HS PRN PO INSOMNIA Last administered on 11/04/18 23:51; Admin Dose 10 MG; Start 10/21/18 at 23:30 Morphine Sulfate (morphine) 2 mg Q4H PRN IV SEVERE PAIN LEVEL 7-10 Last administered on 10/23/18 14:15; Admin Dose 2 MG; Start 10/22/18 at 01:30 Phenol (Cepastat Lozenge) 1 lozenge Q1H PRN MT sore throat Last administered on 10/31/18 18:34; Admin Dose 1 LOZENGE; Start 10/27/18 at 21:30 Fluticasone Propionate (Flonase 0.05% Nasal) 1 spray BID NASAL Last ad ministered on 11/06/18 21:58; Admin Dose 1 SPRAY; Start 10/29/18 at 21:00 Budesonide (Pulmicort (Neb)) 0.5 mg BID RESP THERAPY HHN Last administered on 11/06/18 20:38; Admin Dose 0.5 MG; Start 10/30/18 at 09:00 Metolazone (Zaroxolyn) 2.5 mg BID@0530,1730 PO Last administered on 11/07/18 04:49; Admin Dose 2.5 MG; Start 11/01/18 at 05:30 Furosemide (Lasix) 40 mg BID DIURETICS IV Last administered on 11/04/18 06:18; Admin Dose 40 MG; Start 11/01/18 at 18:00; Status Hold Guaifenesin/ Codeine Phosphate (Robitussin Ac Liquid Cup) 10 ml Q4 PO Last administered on 11/07/18 10:04; Admin Dose 10 ML; Start 11/02/18 at 09:00 Enoxaparin Sodium (Lovenox) 40 mg DAILY SC Last administered on 11/06/18 09:21; Admin Dose 40 MG; Start 11/02/18 at 09:00 Potassium Chloride (Klor-Con 10) 10 meq BID PO Last administered on 11/07/18 08:17; Admin Dose 10 MEQ; Start 11/03/18 at 09:00 Acetazolamide (Diamox) 500 mg BID IV Last administered on 11/06/18 21:57; Admin Dose 500 MG; Start 11/06/18 at 09:00 RUSS JEROME MD November 07, 2018 11:47
[2018-11-07] MEDS: morphine 2 MG INJ IV PRN (13:24)
--- NOTE | 2018-11-07 20:44 | CONS ---
Assessment/Plan Assessment/Plan Hospital Course (Demo Recall) IMPRESSION: 1. Congestive heart failure exacerbation would be diastolic, acute on chronic by most recent echo.-now s/p echo this admit with EF 60/small effusion 2. Abnormal electrocardiogram with low voltage, rule out pericardial effusion. 3. Hypertension-currently borderline hypotension 4. Metastatic breast carcinoma. 5. History of pathologic fractures of the leg, status post open reduction and internal fixation. 6. Anemia. 7. Increased BNP consistent with patient's congestive heart failure. 8. Pericardial effusion-small by echo 9. Edema-LE venous UTZneg for DVT Recc: -On med-surg -Lasix held and patient placed on diamox with metolazone and aldactone by renal due to development of contraction alkalosis -Continue current coreg as tolerated only and continue to hold benazepril at this time and follow BP clsoely -follow K clsoely Consultation Date/Type/Reason Admit Date/Time October 21, 2018 at 17:39 Initial Consult Date 10/21/18 Type of Consult Cardiology Reason for Consultation CHF Requesting Provider: RUSS JEROME MD Date/Time of Note DATE: 11/07/18 TIME: 20:42 Exam/Review of Systems Vital Signs Vitals Vital Signs Date Temp Pulse Resp B/P (MAP) Pulse Ox O2 O2 Flow FiO2 Time Delivery Rate 11/07/18 83 18 93 21 20:09 11/07/18 129/72 Nasal 2.0 14:00 (91) Cannula 11/07/18 98.3 09:01 Intake and Output 11/06/18 11/06/18 11/07/18 1515:00 23:00 07:00 IntakeIntake Total 300 ml 200 ml 200 ml BalanceBalance 300 ml 200 ml 200 ml Exam Exam Review of Systems: CONSTITUTIONAL: No fevers, chills. PULMONARY: No sob CARDIOVASCULAR: No chest pain/palpitations GASTROINTESTINAL: No nausea/vomiting. GENITOURINARY: No hematuria/dysuria. MUSCULOSKELETAL: No myagias/arthalgias. PSYCHIATRIC: The patient denies depression. NEUROLOGIC: mild generalized weakness Constitutional: alert Psych: no complaints Head: normocephalic ENMT: mucosa pink and moist Neck: supple, jvd (9 cm water) Respiratory: diminished breath sounds (at bases/B) Cardiovascular: regular rate and rhythm Gastrointestinal: soft, non-tender Musculoskeletal: muscle weakness (generalized) Extremities: pitting pedal edema (R>L) Neurological: other (NO focal deficits) Labs Result Diagram: 11/07/18 0446 Results 24hrs Laboratory Tests Test 11/07/18 04:46 11/07/18 09:00 Sodium Level 136 Potassium Level 3.4 L Chloride Level 99 Carbon Dioxide Level 31 Anion Gap 6 Blood Urea Nitrogen 26 H Creatinine 0.87 Est Glomerular Filtrat Rate mL/min > 60 Glucose Level 114 Calcium Level 9.0 Phosphorus Level 5.2 H Magnesium Level 2.4 Pathologist Review (Hematology) YES Body Fluid Type PLEURAL FLUID Body Fluid Volume 600.0 Body Fluid Color YELLOW Body Fluid Appearance HAZY Body Fluid WBC 685 Body Fluid RBC (Auto) 3000 Body Fluid Polynuclear WBCs (%) 7.1 Body Fluid Mononuclear Cells % Auto 92.9 Body Fluid Lactate Dehydrogenase 302 Body Fluid Amylase < 30 Medications Medications Current Medications Acetaminophen (Tylenol Tab) 650 mg Q4H PRN PO PAIN LEVEL 1-10/10 Last administered on 10/29/18 17:15; Admin Dose 650 MG; Start 10/21/18 at 23:30 Anastrozole (Arimidex) 1 mg DAILY PO Last administered on 11/07/18 08:18; Admin Dose 1 MG; Start 10/22/18 at 09:00 Benazepril HCl (Lotensin) 5 mg DAILY PO Last administered on 10/30/18 09:27; Admin Dose 5 MG; Start 10/22/18 at 09:00; Status Hold Bisacodyl (Dulcolax Supp) 10 mg Q8 CA Last administered on 10/31/18 16:42; Admin Dose 10 MG; Start 10/22/18 at 06:00 Carvedilol (Coreg) 3.125 mg BID PO Last administered on 11/06/18 21:57; Admin Dose 3.125 MG; Start 10/22/18 at 09:00 Docusate Sodium (Colace) 100 mg BID PO Last administered on 11/07/18 20:30; Admin Dose 100 MG; Start 10/22/18 at 09:00 Escitalopram Oxalate (Lexapro) 10 mg DAILY PO Last administered on 11/07/18 08:16; Admin Dose 10 MG; Start 10/22/18 at 09:00 Albuterol/ Ipratropium (Duoneb) 3 ml Q8H RESP THERAPY HHN Last administered on 11/07/18 16:48; Admin Dose 3 ML; Start 10/22/18 at 00:00 Loratadine (Claritin) 10 mg DAILY PO Last administered on 11/07/18 08:16; Admin Dose 10 MG; Start 10/22/18 at 09:00 Magnesium Hydroxide (Milk Of Mag) 30 ml DAILY PO Last administered on 11/07/18 08:25; Admin Dose 30 ML; Start 10/22/18 at 09:00 Oxycodone HCl (Oxycontin) 20 mg Q12 PO Last administered on 11/07/18 20:31; Admin Dose 20 MG; Start 10/22/18 at 09:00 Pantoprazole (Protonix Tab) 40 mg AC BREAKFAST PO Last administered on 11/07/18 08:16; Admin Dose 40 MG; Start 10/22/18 at 07:25 Polyethylene Glycol (Miralax) 17 gm DAILY PO Last administered on 11/07/18 08:17; Admin Dose 17 GM; Start 10/22/18 at 09:00 Simethicone (Mylicon) 80 mg Q8H PO Last administered on 11/07/18 15:37; Admin Dose 80 MG; Start 10/21/18 at 23:30 Spironolactone (Aldactone) 50 mg DAILY PO Last administered on 11/07/18 08:16; Admin Dose 50 MG; Start 10/22/18 at 09:00 Zolpidem Tartrate (Ambien) 10 mg HS PRN PO INSOMNIA Last administered on 11/04/18 23:51; Admin Dose 10 MG; Start 10/21/18 at 23:30 Morphine Sulfate (morphine) 2 mg Q4H PRN IV SEVERE PAIN LEVEL 7-10 Last administered on 11/07/18 13:24; Admin Dose 2 MG; Start 10/22/18 at 01:30 Phenol (Cepastat Lozenge) 1 lozenge Q1H PRN MT sore throat Last administered on 10/31/18 18:34; Admin Dose 1 LOZENGE; Start 10/27/18 at 21:30 Fluticasone Propionate (Flonase 0.05% Nasal) 1 spray BID NASAL Last administered on 11/07/18 20:35; Admin Dose 1 SPRAY; Start 10/29/18 at 21:00 Budesonide (Pulmicort (Neb)) 0.5 mg BID RESP THERAPY HHN Last administered on 11/07/18 20:09; Admin Dose 0.5 MG; Start 10/30/18 at 09:00 Metolazone (Zaroxolyn) 2.5 mg BID@0530,1730 PO Last administered on 11/07/18 18:10; Admin Dose 2.5 MG; Start 11/01/18 at 05:30 Furosemide (Lasix) 40 mg BID DIURETICS IV Last administered on 11/04/18 06:18; Admin Dose 40 MG; Start 11/01/18 at 18:00; Status Hold Guaifenesin/ Codeine Phosphate (Robitussin Ac Liquid Cup) 10 ml Q4 PO Last administered on 11/07/18 20:30; Admin Dose 10 ML; Start 11/02/18 at 09:00 Enoxaparin Sodium (Lovenox) 40 mg DAILY SC Last administered on 11/07/18 13:26; Admin Dose 40 MG; Start 11/02/18 at 09:00 Potassium Chloride (Klor-Con 10) 10 meq BID PO Last administered on 11/07/18 20:34; Admin Dose 10 MEQ; Start 11/03/18 at 09:00 Acetazolamide (Diamox) 500 mg BID IV Last administered on 11/07/18 20:37; Admin Dose 500 MG; Start 11/06/18 at 09:00 Ibuprofen (Motrin) 400 mg Q6H PRN PO MILD PAIN(1-3) OR TEMP>38C; Start 11/07/18 at 12:20 KAMILA TERESA November 07, 2018 20:44
--- NOTE | 2018-11-07 23:08 | CONS ---
Assessment/Plan Assessment/Plan Hospital Course (Demo Recall) METASTATIC BREAST CANCER WITH PRIMARY ADENOCARCINOMA IN the left breast. MULTIPLE BONY METS, PULMONARY METS, LIVER METS CHEMO ON HOLD PT HAS A VERY GOOD RESPONSE TO CHEMO AND AI CONT AI FOR NOW CT ABD FOR RESTAGING 08.27.18- noted , stable Leukopenia- post chemo, FLUCTUATING WITH RECENT WORSENING- post NEUPOGEN monitor closely post Neutropenia with occasional fever and chills. - resolved Anemia chronic disease SOB PLEURAL EFFUSIONS, NEG CYTOLOGY POST thoracentesis Fluid overload diuretic cardiology F-UP Severe pain in the interscapular and lumbar sacral area most probably metastatic lesion possible femoral fracture. pathologic fracture of T9 with 60% of loss of height. Bony pain with multiple bony mets post XRT will d/w dr Ocampo Obesity. Weight loss 60 pounds during the last 2 years COUGH, Upper respiratory infection pharyngitis with dry cough. POST ATB PMS. Myopia. Anxiety disorder. Claustrophobia. Posttraumatic stress disorder. Pain in the left forearm with a history of fracture of ulna and radius. Tachycardia Hypoxemia at night marginal improved after 2 L of nasal cannula oxygen. Deconditioning Pain syndrome. Today the most painful zone is in the right hip area. X-ray did not show any fractures. Hyponatremia- resolved Hypoalbuminemia Right sided cp after catheter insertion and correction less discomfort. Decreased edema both lower extremities with hypotension-improving Swelling of the left forearm-persist. Consultation Date/Type/Reason Admit Date/Time October 21, 2018 at 17:39 Initial Consult Date 10/21/[address] [facility] Requesting Provider: RUSS JEROME MD Date/Time of Note DATE: 11/07/18 TIME: 23:08 24 HR Interval Summary Free Text/Dictation ALL NOTED NAD AMBULATING Exam/Review of Systems Exam Vitals Vital Signs Date Temp Pulse Resp B/P (MAP) Pulse Ox O2 O2 Flow FiO2 Time Delivery Rate 11/07/18 83 18 93 21 20:09 11/07/18 98.5 102/59 20:00 (73) 11/07/18 Nasal 2.0 14:00 Cannula Intake and Output 11/06/18 11/06/18 11/07/18 1515:00 23:00 07:00 IntakeIntake Total 300 ml 200 ml 200 ml BalanceBalance 300 ml 200 ml 200 ml Exam HEENT: Head is normocephalic. NECK: Supple. HEART: Regular rate. LUNGS: Show diminished breath sounds at the base., COARSE, FEW RHONCHI ABDOMEN: Soft, nontender to palpation without rebound or guarding. EXTREMITIES: Negative for clubbing, cyanosis. Positive edema, improving. DERMATOLOGIC: No rashes. MUSCULOSKELETAL: No joint effusion. NEUROLOGIC: No change in exam. Results Result Diagram: 11/07/18 0446 Results 24hrs Laboratory Tests Test 11/07/18 04:46 11/07/18 09:00 Sodium Level 136 Potassium Level 3.4 L Chloride Level 99 Carbon Dioxide Level 31 Anion Gap 6 Blood Urea Nitrogen 26 H Creatinine 0.87 Est Glomerular Filtrat Rate mL/min > 60 Glucose Level 114 Calcium Level 9.0 Phosphorus Level 5.2 H Magnesium Level 2.4 Pathologist Review (Hematology) YES Body Fluid Type PLEURAL FLUID Body Fluid Volume 600.0 Body Fluid Color YELLOW Body Fluid Appearance HAZY Body Fluid WBC 685 Body Fluid RBC (Auto) 3000 Body Fluid Polynuclear WBCs (%) 7.1 Body Fluid Mononuclear Cells % Auto 92.9 Body Fluid Lactate Dehydrogenase 302 Body Fluid Amylase < 30 Medications Medication Current Medications Acetaminophen (Tylenol Tab) 650 mg Q4H PRN PO PAIN LEVEL 1-10/10 Last administered on 10/29/18 17:15; Admin Dose 650 MG; Start 10/21/18 at 23:30 Anastrozole (Arimidex) 1 mg DAILY PO Last administered on 11/07/18 08:18; Admin Dose 1 MG; Start 10/22/18 at 09:00 Benazepril HCl (Lotensin) 5 mg DAILY PO Last administered on 10/30/18at 09:27; Admin Dose 5 MG; Start 10/22/18 at 09:00; Status Hold Bisacodyl (Dulcolax Supp) 10 mg Q8 [place] Last administered on 10/31/18 16:42; Admin Dose 10 MG; Start 10/22/18 at 06:00 Carvedilol (Coreg) 3.125 mg BID PO Last administered on 11/06/18 21:57; Admin Dose 3.125 MG; Start 10/22/18 at 09:00 Docusate Sodium (Colace) 100 mg BID PO Last administered on 11/07/18at 20:30; Admin Dose 100 MG; Start 10/22/18 at 09:00 Escitalopram Oxalate (Lexapro) 10 mg DAILY PO Last administered on 11/07/18 08:16; Admin Dose 10 MG; Start 10/22/18 at 09:00 Albuterol/ Ipratropium (Duoneb) 3 ml Q8H RESP THERAPY HHN Last administered on 11/07/18 16:48; Admin Dose 3 ML; Start 10/22/18 at 00:00 Loratadine (Claritin) 10 mg DAILY PO Last administered on 11/07/18 08:16; Admin Dose 10 MG; Start 10/22/18 at 09:00 Magnesium Hydroxide (Milk Of Mag) 30 ml DAILY PO Last administered on 11/07/18 08:25; Admin Dose 30 ML; Start 10/22/18 at 09:00 Oxycodone HCl (Oxycontin) 20 mg Q12 PO Last administered on 11/07/18 20:31; Admin Dose 20 MG; Start 10/22/18 at 09:00 Pantoprazole (Protonix Tab) 40 mg AC BREAKFAST PO Last administered on 08:16; Admin Dose 40 MG; Start 10/22/18 at 07:25 Polyethylene Glycol (Miralax) 17 gm DAILY PO Last administered on 11/07/18 08:17; Admin Dose 17 GM; Start 10/22/18 at 09:00 Simethicone (Mylicon) 80 mg Q8H PO Last administered on 11/07/18 15:37; Admin Dose 80 MG; Start 10/21/18 at 23:30 Spironolactone (Aldactone) 50 mg DAILY PO Last administered on 11/07/18 08:16; Admin Dose 50 MG; Start 10/22/18 at 09:00 Zolpidem Tartrate (Ambien) 10 mg HS PRN PO INSOMNIA Last administered on 11/04/18 23:51; Admin Dose 10 MG; Start 10/21/18 at 23:30 Morphine Sulfate (morphine) 2 mg Q4H PRN IV SEVERE PAIN LEVEL 7-10 Last administered on 11/07/18 13:24; Admin Dose 2 MG; Start 10/22/18 at 01:30 Phenol (Cepastat Lozenge) 1 lozenge Q1H PRN MT sore throat Last administered on 10/31/18 18:34; Admin Dose 1 LOZENGE; Start 10/27/18 at 21:30 Fluticasone Propionate (Flonase 0.05% Nasal) 1 spray BID NASAL Last administered on 11/07/18 20:35; Admin Dose 1 SPRAY; Start 10/29/18 at 21:00 Budesonide (Pulmicort (Neb)) 0.5 mg BID RESP THERAPY HHN Last administered on 11/07/18 20:09; Admin Dose 0.5 MG; Start 10/30/18 at 09:00 Metolazone (Zaroxolyn) 2.5 mg BID@6062,1500 PO Last administered on 11/07/18 18:10; Admin Dose 2.5 MG; Start 11/01/18 at 05:30 Furosemide (Lasix) 40 mg BID DIURETICS IV Last administered on 11/04/18 06:18; Admin Dose 40 MG; Start 11/01/18 at 18:00; Status Hold Guaifenesin/ Codeine Phosphate (Robitussin Ac Liquid Cup) 10 ml Q4 PO Last administered on 11/07/18 20:30; Admin Dose 10 ML; Start 11/02/18 at 09:00 Enoxaparin Sodium (Lovenox) 40 mg DAILY SC Last administered on 11/07/18 13:26; Admin Dose 40 MG; Start 11/02/18 at 09:00 Potassium Chloride (Klor-Con 10) 10 meq BID PO Last administered on 11/07/18 20:34; Admin Dose 10 MEQ; Start 11/03/18 at 09:00 Acetazolamide (Diamox) 500 mg BID IV Last administered on 11/07/18 20:37; Admin Dose 500 MG; Start 11/06/18 at 09:00 Ibuprofen (Motrin) 400 mg Q6H PRN PO MILD PAIN(1-3) OR TEMP>38C; Start 11/07/18 at 12:20 DES DUNAWAY MD November 07, 2018 23:08
[2018-11-08] MEDS: GUAIFENESIN/CODEINE 5ML CUP PO SCH ×6 (01:00→20:23)
[2018-11-08] MEDS: ALBUTEROL/IPRATROPIUM (NEB) 3 ML AMP HHN SCH ×4 (01:26→23:42)
[2018-11-08 02:17] VITALS: BP 102/64; PULSE 87; RESP 18
[2018-11-08] MEDS: METOLAZONE 2.5 MG TAB PO SCH ×2 (05:02→17:50)
[2018-11-08] MEDS: PANTOPRAZOLE (EC) 40 MG TAB PO SCH (06:00)
[2018-11-08] MEDS: BISACODYL 10 MG SUPP PR SCH ×3 (06:00→22:00)
[2018-11-08 07:41] VITALS: BP 107/63; PULSE 77; RESP 18
[2018-11-08] MEDS ORDERED: POTASSIUM CHLORIDE (SR) 20 MEQ TAB PO STA ×3 (07:44→18:17)
--- NOTE | 2018-11-08 07:47 | PDOCDIS ---
Discharge Instructions CONDITION [id number] Patient Condition: [id number] Guarded HOME CARE INSTRUCTIONS: [id number] Diet Instructions: [id number] Regular ACTIVITY: [id number] Activity Restrictions: [id number] Slowly Increase Activity [id number] Bathing Restrictions: [id number] Shower FOLLOW UP/APPOINTMENTS Follow-up Plan will follow in snf. REFERRALS Other Referrals , . SCHOOL/WORK RELEASE May return to School/Work on: November 08, 2018 May return to School/Work with: RUSS Price MD November 08, 2018 07:47
[2018-11-08] MEDS: BUDESONIDE (NEB) 0.5MG/2ML AMP HHN SCH ×2 (07:50→20:01)
--- NOTE | 2018-11-08 07:53 | DS ---
Date/Time of Note Date/Time of Note DATE: 11/08/18 TIME: 07:52 Discharge Summary Admission/Discharge Info Admit Date/Time October 21, 2018 at 17:39 Discharge Date/Time november 08, 2018 at 16pm Discharge Diagnosis 1. PRIMARY ADENOCARCINOMA of the left breast. MULTIPLE BONY METS, PULMONARY METS;LIVER METS CHEMO ON HOLD; PT HAS A VERY GOOD RESPONSE TO CHEMO AND AI 2. Severe pain in the interscapular and lumbar sacral area most probably metastatic lesion possible femoral fracture. pathologic fracture of T9 with 60% of loss of height. Neurosurgical f/u. 3. Obesity. 4. Weight loss 60 pounds during the last 2 years by diet 5. PMS. 6. Myopia. 7. Anemia chronic disease with a drop of her hematocrit to 27; Latest results 28. Will recheck tomorrow;Leukopenia.Thrombocytopenia; 8. Anxiety disorder. Claustrophobia. Increase Ativan to 1 mg every 8 as needed at Lexapro 10 mg daily. 9. Posttraumatic stress disorder. 10. Pain in the left forearm with a history of fracture of ulna and radius. 11. Tachycardia 12. Hypoxemia at night marginal improved after 2 L of nasal cannula oxygen. 13. Deconditioning 14. 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 MRI: 09/28/18:diffuse osseous metastatic disease with multiple pathologic compression fractures at least involving the T4, T5, T7, T9 and T11 levels. There is likely mild cortical breakthrough at several levels resulting in mild central canal narrowing. No gross evidence of cord compression is seen.. 15. Pain syndrome. Today the most painful zone is in the right hip area. 16. Hyponatremia-corrected; today and hold Aldactone today. 17. Leucopenia-improved. 18. Neutropenia with occasional fever and chills. Last chemotherapy 5 days ago. 19. Hypoalbuminemia. 20.Right sided cp after catheter insertion and correction less discomfort. 21. Decreased edema both lower extremities with [id number] with Pleural and Pericardial effusion. 22. pain syndrome 23.bilateral pleural effusions ; s/p recurrent left thoracentesis Reaccumulation of the pleural fluid. 24. Systolic over diastolic congestive heart failure with a right more than left lower extremity swelling with no DVT in latest venous Doppler. 25. Swelling of the left forearm-persist. Cellulitis of the left forearm with decreased edema anteriorly.-Today it is less edematous 26. Pathologic fracture of the right hip;s/p hemiarthroplasty of right hip . 27. Dizziness 28. Chills. 29. Memory impairment. 30. Upper respiratory infection pharyngitis with dry cough. 31. Decreased voice with wheezing. 32. Headaches Patient Condition: Guarded Hospital Course Rrecurrent thoracentesis from left pleural cavity.Bronchitis got treated slowly. CHF improved but not totally gone. Continue current chemotherapy bronchodilator therapy correction of fluid his electrolytes and follow the algorithm for a total synthesis planning. Home Meds Reported Medications Tuberculin,Purif.prot.deriv. (Tubersol) 5 Tub Unit/0.1 Ml Vial, 0.1 ML ID, VIAL INJECT QHS EVERY 10 DAYS FOR PPD SCREENING FOR 11 DAYS READ IN 48 HOURS,IF NEGATIVE 2STEP IN 7 DAYS FROM FIRST DOSE. 10/21/18 Acetaminophen* (Tylenol*) 325 Mg Tablet, 650 MG PO Q4H PRN for PAIN LEVEL 1- 10, TAB 10/21/18 Spironolactone* (Aldactone*) 50 Mg Tablet, 50 MG PO DAILY, #30 TAB HOLD FOR SBP<110 10/21/18 Simethicone* (Mylicon*) 80 Mg Tab, 80 MG PO Q8H, TAB 10/21/18 Olopatadine* (Patanol* Ophth) 0.1% - 5 Ml Drops, 1 DROP BOTH EYES BID, EA 10/21/18 Hydrocodone/Acetaminophen ([place] 10-325 Tablet) 1 Each Tablet, 1 EACH PO Q4H, TAB 10/21/18 Loratadine* (Loratadine*) 10 Mg Tablet, 10 MG PO DAILY for FOR 3 MONTHS, #30 TAB 10/21/18 Lidocaine (Lidocaine) 1 Each Adh..patch, 1 EACH TP DAILY 10/21/18 Ipratropium-Albuterol (Ipratropium-Albuterol) 0.5-3 Mg/3 Ml Ampul.neb, 3 ML INHALATION Q8H, #30 VIAL 10/21/18 Furosemide* (Furosemide*) 40 Mg Tablet, 40 MG PO BID, TAB HOLD FOR SBP<110 10/21/18 Na Phos,M-B/Na Phos,Di-Ba (Fleet Enema Extra) Unknown Strength Enema, 1 APPLIC RC NEEDED for CONSTIPATION, ENEMA 10/21/18 Bisacodyl (Dulcolax) 10 Mg Supp.rect, 10 MG RC NEEDED, SUPP.RECT 10/21/18 Potassium Chloride* (Potassium Chloride*) 20 Meq Tablet.er, 20 MEQ PO DAILY, TAB.SA 09/09/18 Pantoprazole* (Pantoprazole*) 40 Mg Tablet.dr, 40 MG PO AC BREAKFAST, TAB 08/22/18 Oxycodone Hcl* (Oxycontin*) 20 Mg Tab.er.12h, 20 MG PO Q12, TAB 08/22/18 Amlodipine Besylate* (Norvasc*) 5 Mg Tablet, 5 MG PO DAILY, TAB HOLD FOR SBP <110. 08/22/18 Polyethylene Glycol* (Miralax*) 17 Gm Powd.pack, 17 GM PO DAILY, #60 PACKET 08/22/18 Magnesium Hydroxide* (Milk Of Magnesia*) 400 Mg/5 Ml Oral.susp, 30 ML PO DAILY, ML 08/22/18 Escitalopram Oxalate* (Lexapro*) 10 Mg Tablet, 10 MG PO DAILY, #30 TAB 08/22/18 Docusate Sodium* (Colace*) 100 Mg Capsule, 100 MG PO BID, #60 CAP 08/22/18 Carvedilol* (Carvedilol*) 3.125 Mg Tablet, 3.125 MG PO BID, #60 TAB HOLD FOR SBP <[address] <60. GIVE WITH FOOD. 08/22/18 Benazepril Hcl* (Benazepril Hcl*) 5 Mg Tablet, 5 MG PO DAILY, #60 TAB HOLD FOR SBP <110. 08/22/18 Anastrozole* (Arimidex*) 1 Mg Tablet, 1 MG PO DAILY, #30 TAB 08/22/18 Follow-up Plan will follow in snf. Primary Care Provider Sun Jerome MD Time spent on discharge: More than 45 minutes. Pending Labs Laboratory Tests Test 11/07/18 09:00 11/08/18 04:56 Pathologist Review (Hematology) YES Body Fluid Type PLEURAL FLUID Body Fluid Volume 600.0 ml Body Fluid Color YELLOW Body Fluid Appearance HAZY Body Fluid WBC 685 /cmm Body Fluid RBC (Auto) 3000 /uL Body Fluid Polynuclear WBCs (%) 7.1 % Body Fluid Mononuclear Cells % Auto 92.9 % Body Fluid Lactate Dehydrogenase 302 U/L Body Fluid Amylase < 30 U/L White Blood Count 4.6 10^3/ul (4.8-10.8) Red Blood Count 3.12 10^6/ul (4.20-5.40) Hemoglobin 10.2 g/dl (12.0-16.0) Hematocrit 31.4 % (37.0-47.0) Mean Corpuscular Volume 100.6 fl (82.0-101.0) Mean Corpuscular Hemoglobin 32.7 pg (29.0-33.0) Mean Corpuscular Hemoglobin Concent 32.5 g/dl (32.0-37.0) Red Cell Distribution Width 15.6 % (11.5-14.5) Platelet Count 218 10^3/UL (140-415) Mean Platelet Volume 9.5 fl (7.4-10.4) Immature Granulocytes % 0.200 % (0.001-0.429) Neutrophils % 47.5 % (39.0-77.0) Lymphocytes % 35.2 % (15.0-51.0) Monocytes % 13.8 % (0.0-11.0) Eosinophils % 2.4 % (0.0-7.0) Basophils % 0.9 % (0.0-2.0) Nucleated Red Blood Cells % 0.0 /100WBC (0.0-0.0) Immature Granulocytes # 0.010 10^3/ul (0.0-0.031) Neutrophils # 2.2 10^3/ul (1.6-7.5) Lymphocytes # 1.6 10^3/ul (0.8-2.9) Monocytes # 0.6 10^3/ul (0.3-0.9) Eosinophils # 0.1 10^3/ul (0.0-0.5) Basophils # 0.0 10^3/ul (0.0-0.1) Nucleated Red Blood Cells # 0.0 10^3/ul (0.0-0.0) Sodium Level 136 mmol/L (135-144) Potassium Level 3.3 mmol/L (3.5-5.1) Chloride Level 100 mmol/L (97-110) Carbon Dioxide Level 28 mmol/L (21-31) Anion Gap 8 (5-13) Blood Urea Nitrogen 26 mg/dl (7-20) Creatinine 0.89 mg/dl (0.44-1.00) Est Glomerular Filtrat Rate mL/min > 60 mL/min (>60) Glucose Level 106 mg/dl (70-220) Calcium Level 8.8 mg/dl (8.4-10.2) Phosphorus Level 5.5 mg/dl (2.5-4.9) Magnesium Level 2.4 mg/dl (1.7-2.5) Iron Level 57 ug/dl (35-150) Total Iron Binding Capacity 232 ug/dl (241-421) Percent Iron Saturation 25 % SAT (22-52) Total Bilirubin 0.4 mg/dl (0.2-1.3) Direct Bilirubin 0.00 mg/dl (0.00-0.20) Indirect Bilirubin 0.4 mg/dl (0-1.1) Aspartate Amino Transf (AST/SGOT) 27 IU/L (15-46) Alanine Aminotransferase (ALT/SGPT) 31 IU/L (13-69) Alkaline Phosphatase 100 IU/L (42-121) Total Protein 6.8 g/dl (6.1-8.1) Albumin 3.6 g/dl (3.3-4.9) Globulin 3.20 g/dl (1.3-3.2) Albumin/Globulin Ratio 1.12 SUN JEROME MD November 08, 2018 07:53
--- NOTE | 2018-11-08 08:42 | PN ---
DATE: 11/08/2018 SUBJECTIVE: The patient is stable at thoracentesis yesterday. No other events noted. OBJECTIVE: VITAL SIGNS: Blood pressure 107/63, respiration 18, pulse 77, temperature 98.0. HEENT: Head is normocephalic. NECK: Supple. HEART: Regular rate. LUNGS: Show diminished breath sounds at the base. ABDOMEN: Soft, nontender to palpation without rebound or guarding. EXTREMITIES: Negative for clubbing, cyanosis. Positive edema. DERMATOLOGIC: No rashes. MUSCULOSKELETAL: No joint effusions. NEUROLOGIC: No change in exam. MEDICATIONS: The patient's medications have been reviewed. LABORATORY DATA: Has been reviewed. ASSESSMENT AND PLAN: 1. Volume overload. Etiology is multifactorial secondary to diastolic heart failure, questionable p ortal hypertension due to metastatic disease in her liver, questionable lymphogenic spread of cancer. The patient is currently on metolazone and will resume loop diuretics, monitor closely. 2. Alkalosis, improved. Will discontinue Diamox. 3. Hypokalemia. Continue to monitor and replete. Continue Aldactone. 4. Nonoliguric acute kidney injury, etiology secondary to hemodynamics. Renal function is improved. Continue to monitor. 5. Mineral bone disorder, monitor calcium and phosphatase levels. 6. Breast cancer with metastasis to the liver and spine. Continue to monitor. 7. Hip fracture status with the arthroplasty. 8. Pleural effusion, status post thoracentesis. 9. Chronic pain syndrome. Continue current pain regimen. 10. Bronchitis. The patient is completing antibiotic course. Dictated By: ANDRÉS YO/KEANU Conf#: [id number] DID#: [id number]
[2018-11-08] MEDS: MAGNESIUM HYDROXIDE 30ML CUP PO SCH (09:00)
[2018-11-08] MEDS: POLYETHYLENE GLYCOL 17 GM PACKET PO SCH (09:00)
[2018-11-08] MEDS: POTASSIUM CHLORIDE (SR) 10 MEQ TAB PO SCH ×2 (09:35→20:25)
[2018-11-08] MEDS: DOCUSATE SODIUM 100 MG CAP PO SCH ×2 (09:36→20:24)
[2018-11-08] MEDS: oxyCODONE (CR) 20 MG TAB [oxyCONTIN] PO SCH ×2 (09:36→20:25)
[2018-11-08] MEDS: SPIRONOLACTONE 50 MG TAB PO SCH (09:37)
[2018-11-08] MEDS: LORATADINE 10 MG TAB PO SCH (09:38)
[2018-11-08] MEDS: ESCITALOPRAM 10 MG TAB PO SCH (09:38)
[2018-11-08] MEDS: ANASTROZOLE 1 MG TAB PO SCH (09:41)
[2018-11-08] MEDS: ENOXAPARIN 40 MG/0.4 ML SYG SC SCH (09:47)
[2018-11-08] MEDS: FLUTICASONE 0.05% 16 GM NAS SPRAY NASAL SCH ×2 (09:49→20:24)
[2018-11-08 13:50] VITALS: BP 98/61; PULSE 86; RESP 19
--- NOTE | 2018-11-08 16:02 | CONS ---
Assessment/Plan Assessment/Plan Hospital Course (Demo Recall) IMPRESSION: 1. Congestive heart failure exacerbation would be diastolic, acute on chronic by most recent echo.-now s/p echo this admit with EF 60/small effusion 2. Abnormal electrocardiogram with low voltage, rule out pericardial effusion. 3. Hypertension-currently borderline hypotension 4. Metastatic breast carcinoma. 5. History of pathologic fractures of the leg, status post open reduction and internal fixation. 6. Anemia. 7. Increased BNP consistent with patient's congestive heart failure. 8. Pericardial effusion-small by echo 9. Edema-LE venous UTZneg for DVT Recc: -On med-surg -Lasix held and patient placed on diamox with metolazone and aldactone by renal due to development of contraction alkalosis -Continue current coreg as tolerated only and continue to hold benazepril at this time and follow BP clsoely -follow K clsoely -D/C planning Consultation Date/Type/Reason Admit Date/Time October 21, 2018 at 17:39 Initial Consult Date 10/21/18 Type of Consult Cardiology Reason for Consultation CHF Requesting Provider: RUSS JEROME MD Date/Time of Note DATE: 11/08/18 TIME: 16:00 Exam/Review of Systems Vital Signs Vitals Vital Signs Date Temp Pulse Resp B/P (MAP) Pulse Ox O2 O2 Flow FiO2 Time Delivery Rate 11/08/18 71 18 92 21 15:01 11/08/18 99.0 98/61 (73) 13:50 11/07/18 Nasal 2.0 14:00 Cannula Intake and Output 11/07/18 11/07/18 11/08/18 1515:00 23:00 07:00 OutputOutput Total 600 ml BalanceBalance -600 ml Exam Exam Review of Systems: CONSTITUTIONAL: No fevers, chills. PULMONARY: No sob CARDIOVASCULAR: No chest pain/palpitations GASTROINTESTINAL: No nausea/vomiting. GENITOURINARY: No hematuria/dysuria. MUSCULOSKELETAL: pain in leg PSYCHIATRIC: The patient denies depression. NEUROLOGIC: No weakness Constitutional: alert Psych: no complaints Head: normocephalic ENMT: mucosa pink and moist Neck: supple, jvd Respiratory: diminished breath sounds Cardiovascular: regular rate and rhythm Gastrointestinal: soft, non-tender Extremities: pitting pedal edema (R>L) Neurological: other (No focal deficits) Labs Result Diagram: 11/08/18 0456 11/08/18 0456 Results 24hrs Laboratory Tests Test 11/08/18 04:56 White Blood Count 4.6 #L Red Blood Count 3.12 L Hemoglobin 10.2 L Hematocrit 31.4 L Mean Corpuscular Volume 100.6 Mean Corpuscular Hemoglobin 32.7 Mean Corpuscular Hemoglobin Concent 32.5 Red Cell Distribution Width 15.6 H Platelet Count 218 # Mean Platelet Volume 9.5 Immature Granulocytes % 0.200 Neutrophils % 47.5 Lymphocytes % 35.2 Monocytes % 13.8 H Eosinophils % 2.4 Basophils % 0.9 Nucleated Red Blood Cells % 0.0 Immature Granulocytes # 0.010 Neutrophils # 2.2 Lymphocytes # 1.6 Monocytes # 0.6 Eosinophils # 0.1 Basophils # 0.0 Nucleated Red Blood Cells # 0.0 Sodium Level 136 Potassium Level 3.3 L Chloride Level 100 Carbon Dioxide Level 28 Anion Gap 8 Blood Urea Nitrogen 26 H Creatinine 0.89 Est Glomerular Filtrat Rate mL/min > 60 Glucose Level 106 Calcium Level 8.8 Phosphorus Level 5.5 H Magnesium Level 2.4 Iron Level 57 Total Iron Binding Capacity 232 L Percent Iron Saturation 25 Total Bilirubin 0.4 Direct Bilirubin 0.00 Indirect Bilirubin 0.4 Aspartate Amino Transf (AST/SGOT) 27 Alanine Aminotransferase (ALT/SGPT) 31 Alkaline Phosphatase 100 Total Protein 6.8 Albumin 3.6 Globulin 3.20 Albumin/Globulin Ratio 1.12 Medications Medications Current Medications Acetaminophen (Tylenol Tab) 650 mg Q4H PRN PO PAIN LEVEL 1-1010 Last administered on 10/29/18at 17:15; Admin Dose 650 MG; Start 10/21/18 at 23:30 Anastrozole (Arimidex) 1 mg DAILY PO Last administered on 11/08/18at 09:41; Admin Dose 1 MG; Start 10/22/18 at 09:00 Benazepril HCl (Lotensin) 5 mg DAILY PO Last administered on 10/30/18at 09:27; Admin Dose 5 MG; Start 10/22/18 at 09:00; Status Hold Bisacodyl (Dulcolax Supp) 10 mg Q8 [place] Last administered on 10/31/18at 16:42; Admin Dose 10 MG; Start 10/22/18 at 06:00 Carvedilol (Coreg) 3.125 mg BID PO Last administered on 11/08/18 09:38; Admin Dose 3.125 MG; Start 10/22/18 at 09:00 Docusate Sodium (Colace) 100 mg BID PO Last administered on 11/08/18 09:36; Admin Dose 100 MG; Start 10/22/18 at 09:00 Escitalopram Oxalate (Lexapro) 10 mg DAILY PO Last administered on 11/08/18 09:38; Admin Dose 10 MG; Start 10/22/18 at 09:00 Albuterol/ Ipratropium (Duoneb) 3 ml Q8H RESP THERAPY HHN Last administered on 11/08/18 15:00; Admin Dose 3 ML; Start 10/22/18 at 00:00 Loratadine (Claritin) 10 mg DAILY PO Last administered on 11/08/18 09:38; Admin Dose 10 MG; Start 10/22/18 at 09:00 Magnesium Hydroxide (Milk Of Mag) 30 ml DAILY PO Last administered on 11/07/18 08:25; Admin Dose 30 ML; Start 10/22/18 at 09:00 Oxycodone HCl (Oxycontin) 20 mg Q12 PO Last administered on 11/08/18 09:36; Admin Dose 20 MG; Start 10/22/18 at 09:00 Pantoprazole (Protonix Tab) 40 mg AC BREAKFAST PO Last administered on 11/08/18 06:00; Admin Dose 40 MG; Start 10/22/18 at 07:25 Polyethylene Glycol (Miralax) 17 gm DAILY PO Last administered on 11/07/18 08:17; Admin Dose 17 GM; Start 10/22/18 at 09:00 Simethicone (Mylicon) 80 mg Q8H PO Last administered on 11/08/18 15:50; Admin Dose 80 MG; Start 10/21/18 at 23:30 Spironolactone (Aldactone) 50 mg DAILY PO Last administered on 11/08/18 09:37; Admin Dose 50 MG; Start 10/22/18 at 09:00 Zolpidem Tartrate (Ambien) 10 mg HS PRN PO INSOMNIA Last administered on 11/04/18 23:51; Admin Dose 10 MG; Start 10/21/18 at 23:30 Morphine Sulfate (morphine) 2 mg Q4H PRN IV SEVERE PAIN LEVEL 7-10 Last administered on 11/07/18 13:24; Admin Dose 2 MG; Start 10/22/18 at 01:30 Phenol (Cepastat Lozenge) 1 lozenge Q1H PRN MT sore throat Last administered on 10/31/18 18:34; Admin Dose 1 LOZENGE; Start 10/27/18 at 21:30 Fluticasone Propionate (Flonase 0.05% Nasal) 1 spray BID NASAL Last administered on 11/08/18 09:49; Admin Dose 1 SPRAY; Start 10/29/18 at 21:00 Budesonide (Pulmicort (Neb)) 0.5 mg BID RESP THERAPY HHN Last administered on 11/08/18 07:50; Admin Dose 0.5 MG; Start 10/30/18 at 09:00 Metolazone (Zaroxolyn) 2.5 mg BID@0530,1730 PO Last administered on 11/08/18 05:02; Admin Dose 2.5 MG; Start 11/01/18 at 05:30 Furosemide (Lasix) 40 mg BID DIURETICS IV Last administered on 11/04/18 06:18; Admin Dose 40 MG; Start 11/01/18 at 18:00 Guaifenesin/ Codeine Phosphate (Robitussin Ac Liquid Cup) 10 ml Q4 PO Last administered on 11/08/18 13:22; Admin Dose 10 ML; Start 11/02/18 at 09:00 Enoxaparin Sodium (Lovenox) 40 mg DAILY SC Last administered on 11/08/18 09:47; Admin Dose 40 MG; Start 11/02/18 at 09:00 Potassium Chloride (Klor-Con 10) 10 meq BID PO Last administered on 11/08/18 09:35; Admin Dose 10 MEQ; Start 11/03/18 at 09:00 Ibuprofen (Motrin) 400 mg Q6H PRN PO MILD PAIN(1-3) OR TEMP>38C; Start 11/07/18 at 12:20 KAMILA TERESA November 08, 2018 16:02
[2018-11-08 18:51] VITALS: BP 104/59; PULSE 79; RESP 18
[2018-11-08] MEDS: FUROSEMIDE 40 MG INJ IV SCH (18:54)
--- NOTE | 2018-11-08 19:03 | CONS ---
Assessment/Plan Assessment/Plan Hospital Course (Demo Recall) METASTATIC BREAST CANCER WITH PRIMARY ADENOCARCINOMA IN the left breast. MULTIPLE BONY METS, PULMONARY METS, LIVER METS CHEMO ON HOLD PT HAS A VERY GOOD RESPONSE TO CHEMO AND AI CONT AI FOR NOW CT ABD FOR RESTAGING 08.27.18- noted , stable Leukopenia- post chemo, FLUCTUATING WITH RECENT WORSENING- post NEUPOGEN monitor closely post Neutropenia with occasional fever and chills. - resolved Anemia chronic disease SOB PLEURAL EFFUSIONS, NEG CYTOLOGY POST thoracentesis Fluid overload diuretic cardiology F-UP Severe pain in the interscapular and lumbar sacral area most probably metastatic lesion possible femoral fracture. pathologic fracture of T9 with 60% of loss of height. Bony pain with multiple bony mets post XRT will d/w dr Ocampo Obesity. Weight loss 60 pounds during the last 2 years COUGH, Upper respiratory infection pharyngitis with dry cough. POST ATB PMS. Myopia. Anxiety disorder. Claustrophobia. Posttraumatic stress disorder. Pain in the left forearm with a history of fracture of ulna and radius. Tachycardia Hypoxemia at night marginal improved after 2 L of nasal cannula oxygen. Deconditioning Pain syndrome. Today the most painful zone is in the right hip area. X-ray did not show any fractures. Hyponatremia- resolved Hypoalbuminemia Right sided cp after catheter insertion and correction less discomfort. Decreased edema both lower extremities with hypotension-improving Swelling of the left forearm-persist. OK TO DC F-UP OUTPT Consultation Date/Type/Reason Admit Date/Time October 21, 2018 at 17:39 Initial Consult Date 10/21/18 Type of Consult [facility] Requesting Provider: RUSS JEROME MD Date/Time of Note DATE: 11/08/18 TIME: 19:02 24 HR Interval Summary Free Text/Dictation all noted NAD Exam/Review of Systems Exam Vitals Vital Signs Date Temp Pulse Resp B/P (MAP) Pulse Ox O2 O2 Flow FiO2 Time Delivery Rate 11/08/18 98.0 79 18 104/59 98 Room Air 18:51 (74) Nasal Cannula 11/08/18 21 15:01 11/07/18 2.0 14:00 Intake and Output 11/07/18 11/07/18 11/08/18 1515:00 23:00 07:00 OutputOutput Total 600 ml BalanceBalance -600 ml Exam HEENT: Head is normocephalic. NECK: Supple. HEART: Regular rate. LUNGS: Show diminished breath sounds at the base., COARSE, FEW RHONCHI ABDOMEN: Soft, nontender to palpation without rebound or guarding. EXTREMITIES: Negative for clubbing, cyanosis. Positive edema, improving. DERMATOLOGIC: No rashes. MUSCULOSKELETAL: No joint effusion. NEUROLOGIC: No change in exam. Results Result Diagram: 11/08/18 0456 11/08/18 0456 Results 24hrs Laboratory Tests Test 11/08/18 04:56 White Blood Count 4.6 #L Red Blood Count 3.12 L Hemoglobin 10.2 L Hematocrit 31.4 L Mean Corpuscular Volume 100.6 Mean Corpuscular Hemoglobin 32.7 Mean Corpuscular Hemoglobin Concent 32.5 Red Cell Distribution Width 15.6 H Platelet Count 218 # Mean Platelet Volume 9.5 Immature Granulocytes % 0.200 Neutrophils % 47.5 Lymphocytes % 35.2 Monocytes % 13.8 H Eosinophils % 2.4 Basophils % 0.9 Nucleated Red Blood Cells % 0.0 Immature Granulocytes # 0.010 Neutrophils # 2.2 Lymphocytes # 1.6 Monocytes # 0.6 Eosinophils # 0.1 Basophils # 0.0 Nucleated Red Blood Cells # 0.0 Sodium Level 136 Potassium Level 3.3 L Chloride Level 100 Carbon Dioxide Level 28 Anion Gap 8 Blood Urea Nitrogen 26 H Creatinine 0.89 Est Glomerular Filtrat Rate mL/min > 60 Glucose Level 106 Calcium Level 8.8 Phosphorus Level 5.5 H Magnesium Level 2.4 Iron Level 57 Total Iron Binding Capacity 232 L Percent Iron Saturation 25 Total Bilirubin 0.4 Direct Bilirubin 0.00 Indirect Bilirubin 0.4 Aspartate Amino Transf (AST/SGOT) 27 Alanine Aminotransferase (ALT/SGPT) 31 Alkaline Phosphatase 100 Total Protein 6.8 Albumin 3.6 Globulin 3.20 Albumin/Globulin Ratio 1.12 Medications Medication Current Medications Acetaminophen (Tylenol Tab) 650 mg Q4H PRN PO PAIN LEVEL 1-10/10 Last administered on 10/29/18at 17:15; Admin Dose 650 MG; Start 10/21/18 at 23:30 Anastrozole (Arimidex) 1 mg DAILY PO Last administered on 11/08/18at 09:41; Admin Dose 1 MG; Start 10/22/18 at 09:00 Benazepril HCl (Lotensin) 5 mg DAILY PO Last administered on 10/30/18 09:27; Admin Dose 5 MG; Start 10/22/18 at 09:00; Status Hold Bisacodyl (Dulcolax Supp) 10 mg Q8 OR Last administered on 10/31/18 16:42; Admin Dose 10 MG; Start 10/22/18 at 06:00 Carvedilol (Coreg) 3.125 mg BID PO Last administered on 11/08/18 09:38; Admin Dose 3.125 MG; Start 10/22/18 at 09:00 Docusate Sodium (Colace) 100 mg BID PO Last administered on 11/08/18 09:36; Admin Dose 100 MG; Start 10/22/18 at 09:00 Escitalopram Oxalate (Lexapro) 10 mg DAILY PO Last administered on 11/08/18 09:38; Admin Dose 10 MG; Start 10/22/18 at 09:00 Albuterol/ Ipratropium (Duoneb) 3 ml Q8H RESP THERAPY HHN Last administered on 11/08/18 15:00; Admin Dose 3 ML; Start 10/22/18 at 00:00 Loratadine (Claritin) 10 mg DAILY PO Last administered on 11/08/18 09:38; Admin Dose 10 MG; Start 10/22/18 at 09:00 Magnesium Hydroxide (Milk Of Mag) 30 ml DAILY PO Last administered on 11/07/18 08:25; Admin Dose 30 ML; Start 10/22/18 at 09:00 Oxycodone HCl (Oxycontin) 20 mg Q12 PO Last administered on 11/08/18 09:36; Admin Dose 20 MG; Start 10/22/18 at 09:00 Pantoprazole (Protonix Tab) 40 mg AC BREAKFAST PO Last administered on 11/08/18 06:00; Admin Dose 40 MG; Start 10/22/18 at 07:25 Polyethylene Glycol (Miralax) 17 gm DAILY PO Last administered on 11/07/18 08:17; Admin Dose 17 GM; Start 10/22/18 at 09:00 Simethicone (Mylicon) 80 mg Q8H PO Last administered on 11/08/18 15:50; Admin Dose 80 MG; Start 10/21/18 at 23:30 Spironolactone (Aldactone) 50 mg DAILY PO Last administered on 11/08/18 09:37; Admin Dose 50 MG; Start 10/22/18 at 09:00 Zolpidem Tartrate (Ambien) 10 mg HS PRN PO INSOMNIA Last administered on 11/04/18 23:51; Admin Dose 10 MG; Start 10/21/18 at 23:30 Morphine Sulfate (morphine) 2 mg Q4H PRN IV SEVERE PAIN LEVEL 7-10 Last administered on 11/07/18 13:24; Admin Dose 2 MG; Start 10/22/18 at 01:30 Phenol (Cepastat Lozenge) 1 lozenge Q1H PRN MT sore throat Last administered on 10/31/18 18:34; Admin Dose 1 LOZENGE; Start 10/27/18 at 21:30 Fluticasone Propionate (Flonase 0.05% Nasal) 1 spray BID NASAL Last administered on 11/08/18 09:49; Admin Dose 1 SPRAY; Start 10/29/18 at 21:00 Budesonide (Pulmicort (Neb)) 0.5 mg BID RESP THERAPY HHN Last administered on 11/08/18 07:50; Admin Dose 0.5 MG; Start 10/30/18 at 09:00 Metolazone (Zaroxolyn) 2.5 mg BID@0530,1730 PO Last administered on 11/08/18 17:50; Admin Dose 2.5 MG; Start 11/01/18 at 05:30 Furosemide (Lasix) 40 mg BID DIURETICS IV Last administered on 11/08/18 18:54; Admin Dose 40 MG; Start 11/01/18 at 18:00 Guaifenesin/ Codeine Phosphate (Robitussin Ac Liquid Cup) 10 ml Q4 PO Last administered on 11/08/18 17:50; Admin Dose 10 ML; Start 11/02/18 at 09:00 Enoxaparin Sodium (Lovenox) 40 mg DAILY SC Last administered on 11/08/18 09:47; Admin Dose 40 MG; Start 11/02/18 at 09:00 Potassium Chloride (Klor-Con 10) 10 meq BID PO Last administered on 11/08/18 09:35; Admin Dose 10 MEQ; Start 11/03/18 at 09:00 Ibuprofen (Motrin) 400 mg Q6H PRN PO MILD PAIN(1-3) OR TEMP>38C; Start 11/07/18 at 12:20 DES DUNAWAY MD November 08, 2018 19:03
[2018-11-08 19:40] VITALS: BP 126/64; PULSE 81; RESP 18
[2018-11-09] MEDS: GUAIFENESIN/CODEINE 5ML CUP PO SCH ×6 (00:38→20:42)
[2018-11-09 02:55] VITALS: BP 102/57; PULSE 77; RESP 20
[2018-11-09] MEDS: PANTOPRAZOLE (EC) 40 MG TAB PO SCH (05:19)
[2018-11-09] MEDS: METOLAZONE 2.5 MG TAB PO SCH ×2 (05:19→17:43)
[2018-11-09] MEDS: FUROSEMIDE 40 MG INJ IV SCH ×2 (05:57→18:45)
[2018-11-09] MEDS: BISACODYL 10 MG SUPP PR SCH ×3 (06:00→21:41)
[2018-11-09 07:22] VITALS: BP 115/58; PULSE 79; RESP 18
--- NOTE | 2018-11-09 08:24 | PN ---
DATE: 11/09/2018 SUBJECTIVE: The patient is stable, no events overnight. OBJECTIVE: VITAL SIGNS: Blood pressure is 115/58, pulse 79, respirations 18, temperature 98.3. HEENT: Head is normocephalic. NECK: Supple. HEART: Regular rate. LUNGS: Show diminished breath sounds at the base. ABDOMEN: Soft, nontender to palpation without rebound or guarding. EXTREMITIES: Negative for clubbing, cyanosis. Positive edema in right lower extremity and left uppe r arm. NEUROLOGIC: No focal deficits. MEDICATIONS: Reviewed. LABORATORY DATA: Reviewed. ASSESSMENT AND PLAN: 1. Volume overload. Etiology is multifactorial secondary to diastolic heart failure, questionable p ortal hypertension due to metastatic disease, questionable lymphogenic spread of cancer. The patient is currently on metolazone, diuretics, Aldactone. We will continue. Adjust diuretics as needed. 2. Alkalosis, improved status post Diamox. 3. Hypokalemia. Continue to monitor and replete. Continue Aldactone. 4. Nonoliguric acute kidney injury secondary to hemodynamics. Renal function is improved. Continue to monitor. 5. Mineral bone disorder, monitor calcium and phosphorus levels. 6. Breast cancer with metastasis to liver and spine. Continue to monitor. 7. Hip fracture, status post arthroplasty. 8. Pleural effusion, status post thoracentesis. 9. Chronic pain syndrome. Continue current pain regimen. 10. Status post bronchitis. Dictated By: ANDRÉS YO/NTS Conf#: [id number] DID#: [id number] CC: RUSS JEROME MD;*EndCC*
[2018-11-09] MEDS: POLYETHYLENE GLYCOL 17 GM PACKET PO SCH (09:00)
[2018-11-09] MEDS: FLUTICASONE 0.05% 16 GM NAS SPRAY NASAL SCH ×2 (09:00→20:42)
[2018-11-09] MEDS: MAGNESIUM HYDROXIDE 30ML CUP PO SCH (09:00)
[2018-11-09] MEDS: BUDESONIDE (NEB) 0.5MG/2ML AMP HHN SCH ×2 (09:00→21:20)
[2018-11-09] MEDS: SPIRONOLACTONE 50 MG TAB PO SCH (10:15)
[2018-11-09] MEDS: LORATADINE 10 MG TAB PO SCH (10:16)
[2018-11-09] MEDS: ESCITALOPRAM 10 MG TAB PO SCH (10:16)
[2018-11-09] MEDS: POTASSIUM CHLORIDE (SR) 10 MEQ TAB PO SCH ×2 (10:16→20:42)
[2018-11-09] MEDS: DOCUSATE SODIUM 100 MG CAP PO SCH ×2 (10:16→20:42)
[2018-11-09] MEDS: oxyCODONE (CR) 20 MG TAB [oxyCONTIN] PO SCH ×2 (10:17→20:42)
[2018-11-09] MEDS: ENOXAPARIN 40 MG/0.4 ML SYG SC SCH (10:18)
[2018-11-09] MEDS: ANASTROZOLE 1 MG TAB PO SCH (10:18)
[2018-11-09] MEDS: ALBUTEROL/IPRATROPIUM (NEB) 3 ML AMP HHN SCH ×2 (16:15→23:57)
--- NOTE | 2018-11-09 16:48 | CONS ---
Assessment/Plan Assessment/Plan Hospital Course (Demo Recall) IMPRESSION: 1. Congestive heart failure exacerbation would be diastolic, acute on chronic by most recent echo.-now s/p echo this admit with EF 60/small effusion 2. Abnormal electrocardiogram with low voltage, rule out pericardial effusion. 3. Hypertension-currently borderline hypotension 4. Metastatic breast carcinoma. 5. History of pathologic fractures of the leg, status post open reduction and internal fixation. 6. Anemia. 7. Increased BNP consistent with patient's congestive heart failure. 8. Pericardial effusion-small by echo 9. Edema-LE venous UTZneg for DVT Recc: -On med-surg -Now resumed on lasix with metolazone -Continue current coreg as tolerated only and continue to hold benazepril at this time and follow BP clsoely -follow K clsoely -D/C planning-awaiting placement Consultation Date/Type/Reason Admit Date/Time October 21, 2018 at 17:39 Initial Consult Date 10/21/18 Type of Consult Cardiology Reason for Consultation CHF Requesting Provider: RUSS JEROME MD Date/Time of Note DATE: 11/09/18 TIME: 16:46 Exam/Review of Systems Vital Signs Vitals Vital Signs Date Temp Pulse Resp B/P (MAP) Pulse Ox O2 O2 Flow FiO2 Time Delivery Rate 11/09/18 2.0 16:18 11/09/18 79 20 Nasal 16:18 Cannula 11/09/18 98.3 115/58 99 07:22 (77) 11/08/18 21 20:04 Intake and Output 11/08/18 11/08/18 11/09/18 1515:00 23:00 07:00 IntakeIntake Total 250 ml BalanceBalance 250 ml Exam Exam Review of Systems: CONSTITUTIONAL: No fevers, chills. PULMONARY: No sob CARDIOVASCULAR: No chest pain/palpitations GASTROINTESTINAL: No nausea/vomiting. GENITOURINARY: No hematuria/dysuria. MUSCULOSKELETAL: No myagias/arthalgias. PSYCHIATRIC: The patient denies depression. NEUROLOGIC: No weakness Constitutional: alert Psych: no complaints Head: normocephalic ENMT: mucosa pink and moist Neck: supple, jvd (9 cm water) Respiratory: diminished breath sounds (at bases/B) Cardiovascular: regular rate and rhythm Gastrointestinal: soft, non-tender Musculoskeletal: muscle tone (normal) Extremities: pitting pedal edema (R>L) Neurological: other (no focal deficits) Labs Result Diagram: 11/08/186 11/08/186 Medications Medications Current Medications Acetaminophen (Tylenol Tab) 650 mg Q4H PRN PO PAIN LEVEL 1-1010 Last administered on 10/29/18 17:15; Admin Dose 650 MG; Start 10/21/18 at 23:30 Anastrozole (Arimidex) 1 mg DAILY PO Last administered on 11/09/18 10:18; Admin Dose 1 MG; Start 10/22/18 at 09:00 Benazepril HCl (Lotensin) 5 mg DAILY PO Last administered on 10/30/18 09:27; Admin Dose 5 MG; Start 10/22/18 at 09:00; Status Hold Bisacodyl (Dulcolax Supp) 10 mg Q8 HI Last administered on 10/31/18 16:42; Admin Dose 10 MG; Start 10/22/18 at 06:00 Carvedilol (Coreg) 3.125 mg BID PO Last administered on 11/08/18 09:38; Admin Dose 3.125 MG; Start 10/22/18 at 09:00 Docusate Sodium (Colace) 100 mg BID PO Last administered on 11/09/18 10:16; Admin Dose 100 MG; Start 10/22/18 at 09:00 Escitalopram Oxalate (Lexapro) 10 mg DAILY PO Last administered on 11/09/18 10:16; Admin Dose 10 MG; Start 10/22/18 at 09:00 Albuterol/ Ipratropium (Duoneb) 3 ml Q8H RESP THERAPY HHN Last administered on 11/09/18 16:15; Admin Dose 3 ML; Start 10/22/18 at 00:00 Loratadine (Claritin) 10 mg DAILY PO Last administered on 11/09/18 10:16; Admin Dose 10 MG; Start 10/22/18 at 09:00 Magnesium Hydroxide (Milk Of Mag) 30 ml DAILY PO Last administered on 11/07/18 08:25; Admin Dose 30 ML; Start 10/22/18 at 09:00 Oxycodone HCl (Oxycontin) 20 mg Q12 PO Last administered on 11/09/18 10:17; Admin Dose 20 MG; Start 10/22/18 at 09:00 Pantoprazole (Protonix Tab) 40 mg AC BREAKFAST PO Last administered on 11/09/18 05:19; Admin Dose 40 MG; Start 10/22/18 at 07:25 Polyethylene Glycol (Miralax) 17 gm DAILY PO Last administered on 11/07/18 08:17; Admin Dose 17 GM; Start 10/22/18 at 09:00 Simethicone (Mylicon) 80 mg Q8H PO Last administered on 11/08/18 15:50; Admin Dose 80 MG; Start 10/21/18 at 23:30 Spironolactone (Aldactone) 50 mg DAILY PO Last administered on 11/09/18 10:15; Admin Dose 50 MG; Start 10/22/18 at 09:00 Zolpidem Tartrate (Ambien) 10 mg HS PRN PO INSOMNIA Last administered on 11/04/18 23:51; Admin Dose 10 MG; Start 10/21/18 at 23:30 Morphine Sulfate (morphine) 2 mg Q4H PRN IV SEVERE PAIN LEVEL 7-10 Last administered on 11/07/18 13:24; Admin Dose 2 MG; Start 10/22/18 at 01:30 Phenol (Cepastat Lozenge) 1 lozenge Q1H PRN MT sore throat Last administered on 10/31/18 18:34; Admin Dose 1 LOZENGE; Start 10/27/18 at 21:30 Fluticasone Propionate (Flonase 0.05% Nasal) 1 spray BID NASAL Last administered on 11/08/18 20:24; Admin Dose 1 SPRAY; Start 10/29/18 at 21:00 Budesonide (Pulmicort (Neb)) 0.5 mg BID RESP THERAPY HHN Last administered on 11/08/18 20:01; Admin Dose 0.5 MG; Start 10/30/18 at 09:00 Metolazone (Zaroxolyn) 2.5 mg BID@0530,1730 PO Last administered on 11/09/18 05:19; Admin Dose 2.5 MG; Start 11/01/18 at 05:30 Furosemide (Lasix) 40 mg BID DIURETICS IV Last administered on 11/09/18 05:57; Admin Dose 40 MG; Start 11/01/18 at 18:00 Guaifenesin/ Codeine Phosphate (Robitussin Ac Liquid Cup) 10 ml Q4 PO Last administered on 11/09/18 13:47; Admin Dose 10 ML; Start 11/02/18 at 09:00 Enoxaparin Sodium (Lovenox) 40 mg DAILY SC Last administered on 11/09/18 10:18; Admin Dose 40 MG; Start 11/02/18 at 09:00 Potassium Chloride (Klor-Con 10) 10 meq BID PO Last administered on 11/09/18 10:16; Admin Dose 10 MEQ; Start 11/03/18 at 09:00 Ibuprofen (Motrin) 400 mg Q6H PRN PO MILD PAIN(1-3) OR TEMP>38C; Start 11/07/18 at 12:20 KAMILA TERESA November 09, 2018 16:48
--- NOTE | 2018-11-09 19:20 | PN ---
Date/Time of Note Date/Time of Note DATE: 11/09/18 TIME: 19:15 Assessment/Plan VTE Prophylaxis Risk score (from Nsg)>0 risk: 7 SCD applied (from Ns): Yes SCD contraindicated: other (ON) Pharmacological prophylaxis: LMWH Lines/Catheters IV Catheter Type (from Nrs): port-a-cath Central line still needed: Yes Urinary Cath still in place: No Reason Cath still needed: urinary retention Assessment/Plan Hospital Course Rrecurrent thoracentesis from left pleural cavity.Bronchitis got treated slowly. CHF improved but not totally gone. Continue current chemotherapy bronchodilator therapy correction of fluid his electrolytes and follow the algorithm for a total synthesis planning. Assessment/Plan 1. PRIMARY ADENOCARCINOMA of the left breast. MULTIPLE BONY METS, PULMONARY METS;LIVER METS CHEMO ON HOLD; PT HAS A VERY GOOD RESPONSE TO CHEMO AND AI 2. Severe pain in the interscapular and lumbar sacral area most probably metastatic lesion possible femoral fracture. pathologic fracture of T9 with 60% of loss of height. Neurosurgical f/u. 3. Obesity. 4. Weight loss 60 pounds during the last 2 years by diet 5. PMS. 6. Myopia. 7. Anemia chronic disease with a drop of her hematocrit to 27; Latest results 28. Will recheck tomorrow;Leukopenia.Thrombocytopenia; 8. Anxiety disorder. Claustrophobia. Increase Ativan to 1 mg every 8 as needed at Lexapro 10 mg daily. 9. Posttraumatic stress disorder. 10. Pain in the left forearm with a history of fracture of ulna and radius. 11. Tachycardia 12. Hypoxemia at night marginal improved after 2 L of nasal cannula oxygen. 13. Deconditioning 14. 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 MRI: 09/28/18:diffuse osseous metastatic disease with multiple pathologic compression fractures at least involving the T4, T5, T7, T9 and T11 levels. There is likely mild cortical breakthrough at several levels resulting in mild central canal narrowing. No gross evidence of cord compression is seen.. 15. Pain syndrome. Today the most painful zone is in the right hip area. 16. Hyponatremia-corrected; today and hold Aldactone today. 17. Leucopenia-improved. 18. Neutropenia with occasional fever and chills. Last chemotherapy 5 days ago. 19. Hypoalbuminemia. 20.Right sided cp after catheter insertion and correction less discomfort. 21. Decreased edema both lower extremities with [id number] with Pleural and Pericardial effusion. 22. pain syndrome 23.bilateral pleural effusions ; s/p recurrent left thoracentesis Reaccumulation of the pleural fluid. 24. Systolic over diastolic congestive heart failure with a right more than left lower extremity swelling with no DVT in latest venous Doppler. 25. Swelling of the left forearm-persist. Cellulitis of the left forearm with decreased edema anteriorly.-Today it is less edematous 26. Pathologic fracture of the right hip;s/p hemiarthroplasty of right hip . 27. Dizziness 28. Chills. 29. Memory impairment. 30. Upper respiratory infection pharyngitis with dry cough. 31. Decreased voice with wheezing. 32. Headaches Result Diagram: 11/08/1845511/08/18455 Subjective 24 Hr Interval Summary Free Text/Dictation ` ` Constitutional: improved, poor po; No no complaints, No chills, No diaphoresis, No disoriented, No febrile, No requiring IVF, No requiring O2, No other Eyes: redness; No no complaints, No pain, No discharge, No visual change, No other ENT: congestion, dysphagia, sore throat; No no complaints, No bleeding, No pain, No discharge, No other Respiratory: cough, shortness of breath, sputum; No no complaints, No pain, No pleuritic pain, No wheezing, No other Cardiovascular: edema, lightheadedness, orthopenea; No no complaints, No chest pain, No palpitations, No paroxysmal nocturnal dyspnea, No other Gastrointestinal: no complaints, constipation; No pain, No blood, No decreased appetite, No diarrhea, No flatus, No nausea, No passing stool, No vomiting, No other Musculoskeletal: back pain, bone/joint pain Skin: pruritis, rash; No no complaints, No bruising, No erythema, No laceration, No skin lesions, No other Neurologic: dizziness; No no complaints, No confusion, No focal-weakness, No headache, No syncope, No seizure, No other Endocrine: polyuria; No no complaints, No polydypsia, No dry skin, No temp intolerance, No other Lymphatic: no complaints Psychological: anxiety; No no complaints, No nl mood/affect, No confusion, No depression, No suicidal, No other Exam/Review of Systems Exam Vitals Vital Signs Date Temp Pulse Resp B/P (MAP) Pulse Ox O2 O2 Flow FiO2 Time Delivery Rate 11/09/18 2.0 16:18 11/09/18 79 20 Nasal 16:18 Cannula 11/09/18 98.3 115/58 99 07:22 (77) 11/08/18 21 20:04 Intake and Output 11/08/18 11/08/18 11/09/18 1515:00 23:00 07:00 IntakeIntake Total 250 ml BalanceBalance 250 ml Constitutional: alert, oriented, well developed, distress, frail, obese Psych: anxiety, depression; No no complaints, No nl mood/affect, No confusion, No suicidal, No other Head: normocephalic, atraumatic; No lacerations, No hematomas, No other Eyes: EOMI, nl lids; No nl conjunctiva, No nl sclera, No PERRL, No icteric, No fundi, disc, No oth er ENMT: mucosa pink and moist; No nl external ears & nose, No nl lips & teeth, No nl nasal mucosa & septum, No intubated, No tympanic membranes, No other Neck: jvd, bruits, thyromegaly, nuchal rigidity; No supple, No non-tender, No masses, No other Respiratory: congested cough, crackles/rales, diminished breath sounds, respirations; No clear to auscultation, No intercostal retraction, No labored breathing, No tactile fremitus, No wheezing, No other Cardiovascular: regular rate and rhythm, edema, jugular venous distention (JVD), systolic murmur; No nl pulses, No bruits, No diastolic murmur, No gallop, No irregular rhythm, No murmurs/extra sounds, No rub, No S3, No S4, No other Gastrointestinal: soft, nl liver, spleen, bowel sounds Musculoskeletal: nl extremities to inspection, nl gait and stance, joint tenderness Extremities: normal pulses, edema, pitting pedal edema Neurological: QM CONSULTANT 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, nl mental status, nl speech, numbness Medications Medication Current Medications Acetaminophen (Tylenol Tab) 650 mg Q4H PRN PO PAIN LEVEL 1-10/10 Last administered on 10/29/18at 17:15; Admin Dose 650 MG; Start 10/21/18 at 23:30 Anastrozole (Arimidex) 1 mg DAILY PO Last administered on 11/09/18 10:18; Admin Dose 1 MG; Start 10/22/18 at 09:00 Benazepril HCl (Lotensin) 5 mg DAILY PO Last administered on 10/30/18 09:27; Admin Dose 5 MG; Start 10/22/18 at 09:00; Status Hold Bisacodyl (Dulcolax Supp) 10 mg Q8 PA Last administered on 10/31/18 16:42; Admin Dose 10 MG; Start 10/22/18 at 06:00 Carvedilol (Coreg) 3.125 mg BID PO Last administered on 11/08/18 09:38; Admin Dose 3.125 MG; Start 10/22/18 at 09:00 Docusate Sodium (Colace) 100 mg BID PO Last administered on 11/09/18 10:16; Admin Dose 100 MG; Start 10/22/18 at 09:00 Escitalopram Oxalate (Lexapro) 10 mg DAILY PO Last administered on 11/09/18 10:16; Admin Dose 10 MG; Start 10/22/18 at 09:00 Albuterol/ Ipratropium (Duoneb) 3 ml Q8H RESP THERAPY HHN Last administered on 11/09/18 16:15; Admin Dose 3 ML; Start 10/22/18 at 00:00 Loratadine (Claritin) 10 mg DAILY PO Last administered on 11/09/18 10:16; Admin Dose 10 MG; Start 10/22/18 at 09:00 Magnesium Hydroxide (Milk Of Mag) 30 ml DAILY PO Last administered on 11/07/18 08:25; Admin Dose 30 ML; Start 10/22/18 at 09:00 Oxycodone HCl (Oxycontin) 20 mg Q12 PO Last administered on 11/09/18 10:17; Admin Dose 20 MG; Start 10/22/18 at 09:00 Pantoprazole (Protonix Tab) 40 mg AC BREAKFAST PO Last administered on 11/09/18 05:19; Admin Dose 40 MG; Start 10/22/18 at 07:25 Polyethylene Glycol (Miralax) 17 gm DAILY PO Last administered on 11/07/18 08:17; Admin Dose 17 GM; Start 10/22/18 at 09:00 Simethicone (Mylicon) 80 mg Q8H PO Last administered on 11/08/18 15:50; Admin Dose 80 MG; Start 10/21/18 at 23:30 Spironolactone (Aldactone) 50 mg DAILY PO Last administered on 11/09/18 10:15; Admin Dose 50 MG; Start 10/22/18 at 09:00 Zolpidem Tartrate (Ambien) 10 mg HS PRN PO INSOMNIA Last administered on 11/04/18 23:51; Admin Dose 10 MG; Start 10/21/18 at 23:30 Morphine Sulfate (morphine) 2 mg Q4H PRN IV SEVERE PAIN LEVEL 7-10 Last administered on 11/07/18 13:24; Admin Dose 2 MG; Start 10/22/18 at 01:30 Phenol (Cepastat Lozenge) 1 lozenge Q1H PRN MT sore throat Last administered on 10/31/18 18:34; Admin Dose 1 LOZENGE; Start 10/27/18 at 21:30 Fluticasone Propionate (Flonase 0.05% Nasal) 1 spray BID NASAL Last adm inistered on 11/08/18 20:24; Admin Dose 1 SPRAY; Start 10/29/18 at 21:00 Budesonide (Pulmicort (Neb)) 0.5 mg BID RESP THERAPY HHN Last administered on 11/08/18 20:01; Admin Dose 0.5 MG; Start 10/30/18 at 09:00 Metolazone (Zaroxolyn) 2.5 mg BID@0530,1730 PO Last administered on 11/09/18 17:43; Admin Dose 2.5 MG; Start 11/01/18 at 05:30 Furosemide (Lasix) 40 mg BID DIURETICS IV Last administered on 11/09/18 18:45; Admin Dose 40 MG; Start 11/01/18 at 18:00 Guaifenesin/ Codeine Phosphate (Robitussin Ac Liquid Cup) 10 ml Q4 PO Last administered on 11/09/18 17:40; Admin Dose 10 ML; Start 11/02/18 at 09:00 Enoxaparin Sodium (Lovenox) 40 mg DAILY SC Last administered on 11/09/18 10:18; Admin Dose 40 MG; Start 11/02/18 at 09:00 Potassium Chloride (Klor-Con 10) 10 meq BID PO Last administered on 11/09/18at 10:16; Admin Dose 10 MEQ; Start 11/03/18 at 09:00 Ibuprofen (Motrin) 400 mg Q6H PRN PO MILD PAIN(1-3) OR TEMP>38C; Start 11/07/18 at 12:20 RUSS JEROME MD November 09, 2018 19:20
[2018-11-09 19:40] VITALS: BP 126/75; PULSE 83; RESP 20
--- NOTE | 2018-11-09 22:57 | CONS ---
Assessment/Plan Assessment/Plan Hospital Course (Demo Recall) METASTATIC BREAST CANCER WITH PRIMARY ADENOCARCINOMA IN the left breast. MULTIPLE BONY METS, PULMONARY METS, LIVER METS CHEMO ON HOLD PT HAS A VERY GOOD RESPONSE TO CHEMO AND AI CONT AI FOR NOW CT ABD FOR RESTAGING 08.27.18- noted , stable Leukopenia- post chemo, FLUCTUATING WITH RECENT WORSENING- post NEUPOGEN monitor closely post Neutropenia with occasional fever and chills. - resolved Anemia chronic disease SOB PLEURAL EFFUSIONS, NEG CYTOLOGY POST thoracentesis Fluid overload diuretic cardiology F-UP Severe pain in the interscapular and lumbar sacral area most probably metastatic lesion possible femoral fracture. pathologic fracture of T9 with 60% of loss of height. Bony pain with multiple bony mets post XRT will d/w dr Ocampo Obesity. Weight loss 60 pounds during the last 2 years COUGH, Upper respiratory infection pharyngitis with dry cough. POST ATB PMS. Myopia. Anxiety disorder. Claustrophobia. Posttraumatic stress disorder. Pain in the left forearm with a history of fracture of ulna and radius. Tachycardia Hypoxemia at night marginal improved after 2 L of nasal cannula oxygen. Deconditioning Pain syndrome. Today the most painful zone is in the right hip area. X-ray did not show any fractures. Hyponatremia- resolved Hypoalbuminemia Right sided cp after catheter insertion and correction less discomfort. Decreased edema both lower extremities with hypotension-improving Swelling of the left forearm-persist. Consultation Date/Type/Reason Admit Date/Time October 21, 2018 at 17:39 Initial Consult Date 10/21/18 Type of Consult [facility] Requesting Provider: RUSS JEROME MD Date/Time of Note DATE: 11/09/18 TIME: 22:56 24 HR Interval Summary Free Text/Dictation NAD Exam/Review of Systems Exam Vitals Vital Signs Date Temp Pulse Resp B/P (MAP) Pulse Ox O2 O2 Flow FiO2 Time Delivery Rate 11/09/18 2.0 27 21:47 11/09/18 98.0 83 20 126/75 98 Room Air 19:40 (92) Intake and Output 11/08/18 11/08/18 11/09/18 1515:00 23:00 07:00 IntakeIntake Total 250 ml BalanceBalance 250 ml Exam HEENT: Head is normocephalic. NECK: Supple. HEART: Regular rate. LUNGS: Show diminished breath sounds at the base., COARSE, FEW RHONCHI ABDOMEN: Soft, nontender to palpation without rebound or guarding. EXTREMITIES: Negative for clubbing, cyanosis. Positive edema, improving. DERMATOLOGIC: No rashes. MUSCULOSKELETAL: No joint effusion. NEUROLOGIC: No change in exam. Results Result Diagram: 11/08/18 0456 11/08/186 Medications Medication Current Medications Acetaminophen (Tylenol Tab) 650 mg Q4H PRN PO PAIN LEVEL 1-1010 Last administered on 10/29/18 17:15; Admin Dose 650 MG; Start 10/21/18 at 23:30 Anastrozole (Arimidex) 1 mg DAILY PO Last administered on 11/09/18 10:18; Admin Dose 1 MG; Start 10/22/18 at 09:00 Benazepril HCl (Lotensin) 5 mg DAILY PO Last administered on 10/30/18 09:27; Admin Dose 5 MG; Start 10/22/18 at 09:00; Status Hold Bisacodyl (Dulcolax Supp) 10 mg Q8 IN Last administered on 10/31/18 16:42; Admin Dose 10 MG; Start 10/22/18 at 06:00 Carvedilol (Coreg) 3.125 mg BID PO Last administered on 11/09/18 20:45; Admin Dose 3.125 MG; Start 10/22/18 at 09:00 Docusate Sodium (Colace) 100 mg BID PO Last administered on 11/09/18 20:42; Admin Dose 100 MG; Start 10/22/18 at 09:00 Escitalopram Oxalate (Lexapro) 10 mg DAILY PO Last administered on 11/09/18 10:16; Admin Dose 10 MG; Start 10/22/18 at 09:00 Albuterol/ Ipratropium (Duoneb) 3 ml Q8H RESP THERAPY HHN Last administered on 11/09/18 16:15; Admin Dose 3 ML; Start 10/22/18 at 00:00 Loratadine (Claritin) 10 mg DAILY PO Last administered on 11/09/18 10:16; Admin Dose 10 MG; Start 10/22/18 at 09:00 Magnesium Hydroxide (Milk Of Mag) 30 ml DAILY PO Last administered on 11/07/18 08:25; Admin Dose 30 ML; Start 10/22/18 at 09:00 Oxycodone HCl (Oxycontin) 20 mg Q12 PO Last administered on 11/09/18 20:42; Admin Dose 20 MG; Start 10/22/18 at 09:00 Pantoprazole (Protonix Tab) 40 mg AC BREAKFAST PO Last administered on 11/09/18 05:19; Admin Dose 40 MG; Start 10/22/18 at 07:25 Polyethylene Glycol (Miralax) 17 gm DAILY PO Last administered on 11/07/18 08:17; Admin Dose 17 GM; Start 10/22/18 at 09:00 Simethicone (Mylicon) 80 mg Q8H PO Last administered on 11/08/18 15:50; Admin Dose 80 MG; Start 10/21/18 at 23:30 Spironolactone (Aldactone) 50 mg DAILY PO Last administered on 11/09/18 10:15; Admin Dose 50 MG; Start 10/22/18 at 09:00 Zolpidem Tartrate (Ambien) 10 mg HS PRN PO INSOMNIA Last administered on 11/04 23:51; Admin Dose 10 MG; Start 10/21/18 at 23:30 Morphine Sulfate (morphine) 2 mg Q4H PRN IV SEVERE PAIN LEVEL 7-10 Last administered on 11/07/18 13:24; Admin Dose 2 MG; Start 10/22/18 at 01:30 Phenol (Cepastat Lozenge) 1 lozenge Q1H PRN MT sore throat Last administered on 10/31/18 18:34; Admin Dose 1 LOZENGE; Start 10/27/18 at 21:30 Fluticasone Propionate (Flonase 0.05% Nasal) 1 spray BID NASAL Last administered on 11/09/18 20:42; Admin Dose 1 SPRAY; Start 10/29/18 at 21:00 Budesonide (Pulmicort (Neb)) 0.5 mg BID RESP THERAPY HHN Last administered on 11/09/18 21:20; Admin Dose 0.5 MG; Start 10/30/18 at 09:00 Metolazone (Zaroxolyn) 2.5 mg BID@4530,5420 PO Last administered on 11/09/18 17:43; Admin Dose 2.5 MG; Start 11/01/18 at 05:30 Furosemide (Lasix) 40 mg BID DIURETICS IV Last administered on 11/09/18 18:45; Admin Dose 40 MG; Start 11/01/18 at 18:00 Guaifenesin/ Codeine Phosphate (Robitussin Ac Liquid Cup) 10 ml Q4 PO Last administered on 11/09/18 20:42; Admin Dose 10 ML; Start 11/02/18 at 09:00 Enoxaparin Sodium (Lovenox) 40 mg DAILY SC Last administered on 11/09/18 10:18; Admin Dose 40 MG; Start 11/02/18 at 09:00 Potassium Chloride (Klor-Con 10) 10 meq BID PO Last administered on 11/09/18 20:42; Admin Dose 10 MEQ; Start 11/03/18 at 09:00 Ibuprofen (Motrin) 400 mg Q6H PRN PO MILD PAIN(1-3) OR TEMP>38C; Start 11/07/18 at 12:20 DES DUNAWAY MD November 09, 2018 22:57
[2018-11-10] MEDS: GUAIFENESIN/CODEINE 5ML CUP PO SCH ×7 (00:21→20:36)
[2018-11-10 02:00] VITALS: BP 113/76; PULSE 96; RESP 20
[2018-11-10 02:25] VITALS: BP 110/69; PULSE 83; RESP 20
[2018-11-10] MEDS: FUROSEMIDE 40 MG INJ IV SCH ×2 (05:24→18:08)
[2018-11-10] MEDS: PANTOPRAZOLE (EC) 40 MG TAB PO SCH (05:24)
[2018-11-10] MEDS: METOLAZONE 2.5 MG TAB PO SCH ×2 (05:24→18:08)
[2018-11-10] MEDS: BISACODYL 10 MG SUPP PR SCH ×3 (05:25→20:33)
[2018-11-10 08:27] VITALS: BP 104/64; PULSE 72; RESP 18
[2018-11-10] MEDS: ALBUTEROL/IPRATROPIUM (NEB) 3 ML AMP HHN SCH ×2 (09:05→16:34)
[2018-11-10] MEDS: BUDESONIDE (NEB) 0.5MG/2ML AMP HHN SCH ×2 (09:05→20:00)
[2018-11-10] MEDS: LORATADINE 10 MG TAB PO SCH (09:21)
[2018-11-10] MEDS: ESCITALOPRAM 10 MG TAB PO SCH (09:21)
[2018-11-10] MEDS: DOCUSATE SODIUM 100 MG CAP PO SCH ×2 (09:21→20:22)
[2018-11-10] MEDS: MAGNESIUM HYDROXIDE 30ML CUP PO SCH (09:22)
[2018-11-10] MEDS: SPIRONOLACTONE 50 MG TAB PO SCH (09:22)
[2018-11-10] MEDS: POLYETHYLENE GLYCOL 17 GM PACKET PO SCH (09:22)
[2018-11-10] MEDS: oxyCODONE (CR) 20 MG TAB [oxyCONTIN] PO SCH ×2 (09:22→20:32)
[2018-11-10] MEDS: POTASSIUM CHLORIDE (SR) 10 MEQ TAB PO SCH ×2 (09:22→20:22)
[2018-11-10] MEDS: ANASTROZOLE 1 MG TAB PO SCH (09:23)
[2018-11-10] MEDS: ENOXAPARIN 40 MG/0.4 ML SYG SC SCH (09:24)
[2018-11-10] MEDS: FLUTICASONE 0.05% 16 GM NAS SPRAY NASAL SCH ×2 (09:25→20:23)
--- NOTE | 2018-11-10 09:47 | PN ---
DATE: 11/10/2018 SUBJECTIVE: The patient is stable. No events overnight. OBJECTIVE: VITAL SIGNS: Blood pressure is 110/69, respiratory rate 20, pulse 83, temperature 98.1. HEENT: Head is normocephalic. NECK: Supple. HEART: Regular rate. LUNGS: Show diminished breath sounds at the base. ABDOMEN: Soft, nontender to palpation without rebound or guarding. EXTREMITIES: Negative for clubbing, cyanosis, positive edema. DERMATOLOGIC: No rashes. MUSCULOSKELETAL: No joint effusion. NEUROLOGIC: No change in exam. MEDICATIONS: The patient's medications have been reviewed. LABORATORY DATA: Has been reviewed. ASSESSMENT AND PLAN: 1. Volume overload. Etiology is multifactorial secondary to diastolic heart failure, questionable p ortal hypertension due to metastatic disease, questionable lymphogenic spread of cancer. The patient is currently on Metolazone, Aldactone and Lasix. We will continue and adjust diuretics as needed. 2. Alkalosis, improved status post Diamox. 3. Hypokalemia. Continue to monitor and replete with potassium chloride. Continue Aldactone. 4. Nonoliguric acute kidney injury. Etiology is secondary to hemodynamics. Renal function is impro bill. Continue to monitor. 5. Mineral bone disorder. Monitor calcium and phosphorus levels. 6. Breast cancer with metastasis to the liver and spine. Continue to monitor. 7. Hip fracture, status post arthroplasty. 8. Pleural effusion, status post thoracentesis. 9. Chronic pain syndrome. Continue current pain regimen. 10. Status post bronchitis. Dictated By: ANDRÉS YO/KEANU Conf#: [id number] DID#: [id number] CC: RUSS JEROME MD;*EndCC*
[2018-11-10] MEDS ORDERED: POTASSIUM CHLORIDE (SR) 10 MEQ TAB PO ONE (10:00)
[2018-11-10 13:21] VITALS: BP 114/66; PULSE 88; RESP 18
--- NOTE | 2018-11-10 18:30 | CONS ---
Assessment/Plan Assessment/Plan Hospital Course (Demo Recall) IMPRESSION: 1. Congestive heart failure exacerbation would be diastolic, acute on chronic by most recent echo.-now s/p echo this admit with EF 60/small effusion 2. Abnormal electrocardiogram with low voltage, rule out pericardial effusion. 3. Hypertension-currently borderline hypotension 4. Metastatic breast carcinoma. 5. History of pathologic fractures of the leg, status post open reduction and internal fixation. 6. Anemia. 7. Increased BNP consistent with patient's congestive heart failure. 8. Pericardial effusion-small by echo 9. Edema-LE venous UTZneg for DVT 10. Hypokalemia-s/p repletion today/on aldactone Recc: -On med-surg -Now resumed on lasix with metolazone and aldactone with overall significantly iumproved volume status and resolution of LLE edema -Continue current coreg as tolerated only and continue to hold benazepril at this time and follow BP clsoely -follow K clsoely s/p repletion today and on aldactone -D/C planning-awaiting placement Consultation Date/Type/Reason Admit Date/Time October 21, 2018 at 17:39 Initial Consult Date 10/21/18 Type of Consult Cardiology Reason for Consultation CHF Requesting Provider: RUSS JEROME MD Date/Time of Note DATE: 11/10/18 TIME: 18:28 Exam/Review of Systems Vital Signs Vitals Vital Signs Date Temp Pulse Resp B/P (MAP) Pulse Ox O2 O2 Flow FiO2 Time Delivery Rate 11/10/18 88 20 Nasal 2.0 16:38 Cannula 11/10/18 98.7 114/66 98 13:21 (82) 11/10/18 27 02:07 Intake and Output 11/09/18 11/09/18 11/10/18 1515:00 23:00 07:00 IntakeIntake Total 120 ml 610 ml OutputOutput Total 400 ml BalanceBalance 120 ml 210 ml Exam Exam Review of Systems: CONSTITUTIONAL: No fevers, chills. PULMONARY: No sob CARDIOVASCULAR: No chest pain/palpitations GASTROINTESTINAL: No nausea/vomiting. GENITOURINARY: No hematuria/dysuria. MUSCULOSKELETAL: No myagias/arthalgias. PSYCHIATRIC: The patient denies depression. NEUROLOGIC: No weakness Constitutional: alert, oriented Psych: no complaints Head: normocephalic ENMT: mucosa pink and moist Neck: supple, jvd (9 cm water) Respiratory: diminished breath sounds (at baes/B) Cardiovascular: regular rate and rhythm Gastrointestinal: soft, non-tender Musculoskeletal: muscle weakness (mild generalized) Extremities: pitting pedal edema (R>>L) Neurological: other (No focal deficits) Labs Result Diagram: 11/10/1842711/10/18427 Results 24hrs Laboratory Tests Test 11/10/18 04:28 White Blood Count 4.9 Red Blood Count 3.12 L Hemoglobin 10.0 L Hematocrit 30.6 L Mean Corpuscular Volume 98.1 Mean Corpuscular Hemoglobin 32.1 Mean Corpuscular Hemoglobin Concent 32.7 Red Cell Distribution Width 15.5 H Platelet Count 221 Mean Platelet Volume 9.4 Immature Granulocytes % 0.000 L Neutrophils % 47.0 Lymphocytes % 36.1 Monocytes % 14.5 H Eosinophils % 1.6 Basophils % 0.8 Nucleated Red Blood Cells % 0.0 Immature Granulocytes # 0.000 Neutrophils # 2.3 Lymphocytes # 1.8 Monocytes # 0.7 Eosinophils # 0.1 Basophils # 0.0 Nucleated Red Blood Cells # 0.0 Sodium Level 135 Potassium Level 2.9 *L Chloride Level 95 L Carbon Dioxide Level 31 Anion Gap 9 Blood Urea Nitrogen 31 H Creatinine 0.90 Est Glomerular Filtrat Rate mL/min > 60 Glucose Level 102 Calcium Level 8.7 Phosphorus Level 5.3 H Magnesium Level 2.0 Medications Medications Current Medications Acetaminophen (Tylenol Tab) 650 mg Q4H PRN PO PAIN LEVEL 1-10/10 Last administered on 10/29/18at 17:15; Admin Dose 650 MG; Start 10/21/18 at 23:30 Anastrozole (Arimidex) 1 mg DAILY PO Last administered on 11/10/18at 09:23; Admin Dose 1 MG; Start 10/22/18 at 09:00 Benazepril HCl (Lotensin) 5 mg DAILY PO Last administered on 10/30/18at 09:27; Admin Dose 5 MG; Start 10/22/18 at 09:00; Status Hold Bisacodyl (Dulcolax Supp) 10 mg Q8 SC Last administered on 10/31/18at 16:42; Admin Dose 10 MG; Start 10/22/18 at 06:00 Carvedilol (Coreg) 3.125 mg BID PO Last administered on 11/10/18 09:22; Admin Dose 3.125 MG; Start 10/22/18 at 09:00 Docusate Sodium (Colace) 100 mg BID PO Last administered on 11/10/18 09:21; Admin Dose 100 MG; Start 10/22/18 at 09:00 Escitalopram Oxalate (Lexapro) 10 mg DAILY PO Last administered on 11/10/18 09:21; Admin Dose 10 MG; Start 10/22/18 at 09:00 Albuterol/ Ipratropium (Duoneb) 3 ml Q8H RESP THERAPY HHN Last administered on 11/10/18 16:34; Admin Dose 3 ML; Start 10/22/18 at 00:00 Loratadine (Claritin) 10 mg DAILY PO Last administered on 11/10/18 09:21; Admin Dose 10 MG; Start 10/22/18 at 09:00 Magnesium Hydroxide (Milk Of Mag) 30 ml DAILY PO Last administered on 11/10/18 09:22; Admin Dose 30 ML; Start 10/22/18 at 09:00 Oxycodone HCl (Oxycontin) 20 mg Q12 PO Last administered on 11/10/18 09:22; Admin Dose 20 MG; Start 10/22/18 at 09:00 Pantoprazole (Protonix Tab) 40 mg AC BREAKFAST PO Last administered on 11/10/18 05:24; Admin Dose 40 MG; Start 10/22/18 at 07:25 Polyethylene Glycol (Miralax) 17 gm DAILY PO Last administered on 11/10/18 09:22; Admin Dose 17 GM; Start 10/22/18 at 09:00 Simethicone (Mylicon) 80 mg Q8H PO Last administered on 11/08/18 15:50; Admin Dose 80 MG; Start 10/21/18 at 23:30 Spironolactone (Aldactone) 50 mg DAILY PO Last administered on 11/10/18 09:22; Admin Dose 50 MG; Start 10/22/18 at 09:00 Zolpidem Tartrate (Ambien) 10 mg HS PRN PO INSOMNIA Last administered on 11/04/18 23:51; Admin Dose 10 MG; Start 10/21/18 at 23:30 Morphine Sulfate (morphine) 2 mg Q4H PRN IV SEVERE PAIN LEVEL 7-10 Last administered on 11/07/18 13:24; Admin Dose 2 MG; Start 10/22/18 at 01:30 Phenol (Cepastat Lozenge) 1 lozenge Q1H PRN MT sore throat Last administered on 10/31/18 18:34; Admin Dose 1 LOZENGE; Start 10/27/18 at 21:30 Fluticasone Propionate (Flonase 0.05% Nasal) 1 spray BID NASAL Last administered on 11/10/18 09:25; Admin Dose 1 SPRAY; Start 10/29/18 at 21:00 Budesonide (Pulmicort (Neb)) 0.5 mg BID RESP THERAPY HHN Last administered on 11/10/18 09:05; Admin Dose 0.5 MG; Start 10/30/18 at 09:00 Metolazone (Zaroxolyn) 2.5 mg BID@0530,1730 PO Last administered on 11/10/18 18:08; Admin Dose 2.5 MG; Start 11/01/18 at 05:30 Furosemide (Lasix) 40 mg BID DIURETICS IV Last administered on 11/10/18 18:08; Admin Dose 40 MG; Start 11/01/18 at 18:00 Guaifenesin/ Codeine Phosphate (Robitussin Ac Liquid Cup) 10 ml Q4 PO Last administered on 11/10/18 18:07; Admin Dose 10 ML; Start 11/02/18 at 09:00 Enoxaparin Sodium (Lovenox) 40 mg DAILY SC Last administered on 11/10/18 09:24; Admin Dose 40 MG; Start 11/02/18 at 09:00 Potassium Chloride (Klor-Con 10) 10 meq BID PO Last administered on 11/10/18 09:22; Admin Dose 10 MEQ; Start 11/03/18 at 09:00 Ibuprofen (Motrin) 400 mg Q6H PRN PO MILD PAIN(1-3) OR TEMP>38C; Start 11/07/18 at 12:20 KAMILA TERESA November 10, 2018 18:30
--- NOTE | 2018-11-10 18:57 | PN ---
Date/Time of Note Date/Time of Note DATE: 11/10/18 TIME: 18:52 Assessment/Plan VTE Prophylaxis Risk score (from Nsg)>0 risk: 12 SCD applied (from Nsg): Yes SCD contraindicated: other (on.) Pharmacological prophylaxis: LMWH Lines/Catheters IV Catheter Type (from Nrs): PORT-A-CATH Central line still needed: Yes Urinary Cath still in place: No Reason Cath still needed: urinary retention Assessment/Plan Hospital Course Rrecurrent thoracentesis from left pleural cavity.Bronchitis got treated slowly. CHF improved but not totally gone. Continue current chemotherapy bronchodilator therapy correction of fluid his electrolytes and follow the algorithm for a total synthesis planning. Assessment/Plan Rrecurrent thoracentesis from left pleural cavity.Bronchitis got treated slowly. CHF improved but not totally gone. Continue current chemotherapy bronchodilator therapy correction of fluid his electrolytes and follow the algorithm for a total synthesis planning. Assessment/Plan 1. PRIMARY ADENOCARCINOMA of the left breast. MULTIPLE BONY METS, PULMONARY M ETS;LIVER METS CHEMO ON HOLD; PT HAS A VERY GOOD RESPONSE TO CHEMO AND AI 2. Severe pain in the interscapular and lumbar sacral area most probably metastatic lesion possible femoral fracture. pathologic fracture of T9 with 60% of loss of height. Neurosurgical f/u. 3. Obesity. 4. Weight loss 60 pounds during the last 2 years by diet 5. PMS. 6. Myopia. 7. Anemia chronic disease with a drop of her hematocrit to 27; Latest results 28. Will recheck tomorrow;Leukopenia.Thrombocytopenia; 8. Anxiety disorder. Claustrophobia. Increase Ativan to 1 mg every 8 as needed at Lexapro 10 mg daily. 9. Posttraumatic stress disorder. 10. Pain in the left forearm with a history of fracture of ulna and radius. 11. Tachycardia-resolved 12. Hypoxemia at night marginal improved after 2 L of nasal cannula oxygen. 13. Deconditioning 14. 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 MRI: 09/28/18:diffuse osseous metastatic disease with multiple pathologic compression fractures at least involving the T4, T5, T7, T9 and T11 levels. There is likely mild cortical breakthrough at several levels resulting in mild central canal narrowing. No gross evidence of cord compression is seen.. 15. Pain syndrome. Today the most painful zone is in the right hip area. 16. Hyponatremia-corrected; today and hold Aldactone today. 17. Leucopenia-improved. 18. Neutropenia with occasional fever and chills. Last chemotherapy 5 days ago. 19. Hypoalbuminemia. 20.Right sided cp after catheter insertion and correction less discomfort. 21. Decreased edema both lower extremities with [id number] with Pleural and Pericardial effusion. 22. pain syndrome 23.bilateral pleural effusions ; s/p recurrent left thoracentesis Reaccumulation of the pleural fluid. 24. Systolic over diastolic congestive heart failure with a right more than left lower extremity swelling with no DVT in latest venous Doppler. 25. Swelling of the left forearm-persist. Cellulitis of the left forearm with decreased edema anteriorly.-Today it is less edematous 26. Pathologic fracture of the right hip;s/p hemiarthroplasty of right hip . 27. Dizziness 28. Chills. 29. Memory impairment. 30. Upper respiratory infection pharyngitis with dry cough. 31. Decreased voice with wheezing. 32. Headaches 33. Hypokalemia- Supplement Result Diagram: 11/10/188 11/10/188 Results 24hrs Laboratory Tests Test 11/10/18 04:28 White Blood Count 4.9 Red Blood Count 3.12 L Hemoglobin 10.0 L Hematocrit 30.6 L Mean Corpuscular Volume 98.1 Mean Corpuscular Hemoglobin 32.1 Mean Corpuscular Hemoglobin Concent 32.7 Red Cell Distribution Width 15.5 H Platelet Count 221 Mean Platelet Volume 9.4 Immature Granulocytes % 0.000 L Neutrophils % 47.0 Lymphocytes % 36.1 Monocytes % 14.5 H Eosinophils % 1.6 Basophils % 0.8 Nucleated Red Blood Cells % 0.0 Immature Granulocytes # 0.000 Neutrophils # 2.3 Lymphocytes # 1.8 Monocytes # 0.7 Eosinophils # 0.1 Basophils # 0.0 Nucleated Red Blood Cells # 0.0 Sodium Level 135 Potassium Level 2.9 *L Chloride Level 95 L Carbon Dioxide Level 31 Anion Gap 9 Blood Urea Nitrogen 31 H Creatinine 0.90 Est Glomerular Filtrat Rate mL/min > 60 Glucose Level 102 Calcium Level 8.7 Phosphorus Level 5.3 H Magnesium Level 2.0 Subjective 24 Hr Interval Summary Free Text/Dictation Persistent cough with decreased intensity. Unable to expectorate sputum. No fever or chills. Increased frequency of urination. Feels weak. Makes heroic efforts to stand up involved. She has a high risk for falls; recommended not to get up without using a walker. Constitutional: improved, requiring O2; No no complaints, No chills, No diaphoresis, No disoriented, No febrile, No poor po, No requiring IVF, No other Eyes: No no complaints, No pain, No discharge, No redness, No visual change, No other ENT: congestion; No no complaints, No bleeding, No pain, No discharge, No dysphagia, No sore throat, No other Respiratory: cough, shortness of breath; No no complaints, No pain, No pleuritic pain, No sputum, No wheezing, No other Cardiovascular: chest pain; No no complaints, No edema, No lightheadedness, No orthopenea, No palpitations, No paroxysmal nocturnal dyspnea, No other Gastrointestinal: flatus, nausea; No no complaints, No pain, No blood, No constipation, No decreased appetite, No diarrhea, No passing stool, No vomiting, No other Genitourinary: dysuria; No no complaints, No bleeding, No discharge, No flank pain, No hematuria, No other Musculoskeletal: back pain, bone/joint pain, neck pain; No no complaints, No restricted range of motion, No swelling, No other Skin: No no complaints, No bruising, No erythema, No laceration, No pruritis, No rash, No skin lesions, No other Psychological: anxiety; No no complaints, No nl mood/affect, No confusion, No depression, No suicidal, No other Exam/Review of Systems Exam Vitals Vital Signs Date Temp Pulse Resp B/P (MAP) Pulse Ox O2 O2 Flow FiO2 Time Delivery Rate 11/10/18 88 20 Nasal 2.0 16:38 Cannula 11/10/18 98.7 114/66 98 13:21 (82) 11/10/18 27 02:07 Intake and Output 11/09/18 11/09/18 11/10/18 1515:00 23:00 07:00 IntakeIntake Total 120 ml 610 ml OutputOutput Total 400 ml BalanceBalance 120 ml 210 ml Constitutional: alert, oriented, well developed, distress, frail, obese Psych: anxiety, depression; No no complaints, No nl mood/affect, No confusion, No suicidal, No other Head: normocephalic, atraumatic; No lacerations, No hematomas, No other Eyes: EOMI, nl lids; No nl conjunctiva, No nl sclera, No PERRL, No icteric, No fundi, disc, No ot her ENMT: nl nasal mucosa & septum; No nl external ears & nose, No nl lips & teeth, No mucosa pink and moist, No intubated, No tympanic membranes, No other Neck: jvd, bruits, thyromegaly, nuchal rigidity; No supple, No non-tender, No masses, No other Respiratory: diminished breath sounds (On the left lower lung zones posteriorly mainly.); No clear to auscultation, No normal air movement, No congested cough, No crackles/rales, No intercostal retraction, No labored breathing, No respirations, No tactile fremitus, No wheezing, No other Cardiovascular: nl pulses, bruits; No regular rate and rhythm, No diastolic murmur, No edema, No gallop, No irregular rhythm, No jugular venous distention (JVD), No murmurs/extra sounds, No rub, No systolic murmur, No S3, No S4, No other Gastrointestinal: soft, bowel sounds; No nl liver, spleen, No non-tender, No ascites, No distended, No firm, No hepatomegaly, No mass, No rebound or guarding, No splenomegaly, No surgical scars, No tender, No other Musculoskeletal: joint tenderness; No nl extremities to inspection, No nl gait and stance, No muscle tone, No muscle weakness, No range of motion, No spine non-tender, No swelling, No other Extremities: edema; No normal pulses, No calf tenderness, No cyanosis, No clubbing, No pitting pedal edema, No palpable cord, No tenderness, No other Neurological: 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, nl speech, focal weakness; No nl mental status, No nl strength, No confused, No DTR's symmetric, No lethargic, No numbness, No reflexes, No unresponsive, No other Skin: No nl turgor, No rash or lesions, No diaphoresis, No ecchymosis, No laceration, No puncture, No other Lymph: No nl lymph nodes, No enlarged, No nontender, No other Results Results 24hrs Laboratory Tests Test 11/10/18 04:28 White Blood Count 4.9 Red Blood Count 3.12 L Hemoglobin 10.0 L Hematocrit 30.6 L Mean Corpuscular Volume 98.1 Mean Corpuscular Hemoglobin 32.1 Mean Corpuscular Hemoglobin Concent 32.7 Red Cell Distribution Width 15.5 H Platelet Count 221 Mean Platelet Volume 9.4 Immature Granulocytes % 0.000 L Neutrophils % 47.0 Lymphocytes % 36.1 Monocytes % 14.5 H Eosinophils % 1.6 Basophils % 0.8 Nucleated Red Blood Cells % 0.0 Immature Granulocytes # 0.000 Neutrophils # 2.3 Lymphocytes # 1.8 Monocytes # 0.7 Eosinophils # 0.1 Basophils # 0.0 Nucleated Red Blood Cells # 0.0 Sodium Level 135 Potassium Level 2.9 *L Chloride Level 95 L Carbon Dioxide Level 31 Anion Gap 9 Blood Urea Nitrogen 31 H Creatinine 0.90 Est Glomerular Filtrat Rate mL/min > 60 Glucose Level 102 Calcium Level 8.7 Phosphorus Level 5.3 H Magnesium Level 2.0 Medications Medication Current Medications Acetaminophen (Tylenol Tab) 650 mg Q4H PRN PO PAIN LEVEL 1-1010 Last administered on 10/29/18 17:15; Admin Dose 650 MG; Start 10/21/18 at 23:30 Anastrozole (Arimidex) 1 mg DAILY PO Last administered on 11/10/18 09:23; Admin Dose 1 MG; Start 10/22/18 at 09:00 Benazepril HCl (Lotensin) 5 mg DAILY PO Last administered on 10/30/18 09:27; Admin Dose 5 MG; Start 10/22/18 at 09:00; Status Hold Bisacodyl (Dulcolax Supp) 10 mg Q8 [place] Last administered on 10/31/18 16:42; Admin Dose 10 MG; Start 10/22/18 at 06:00 Carvedilol (Coreg) 3.125 mg BID PO Last administered on 11/10/18 09:22; Admin Dose 3.125 MG; Start 10/22/18 at 09:00 Docusate Sodium (Colace) 100 mg BID PO Last administered on 11/10/18 09:21; Admin Dose 100 MG; Start 10/22/18 at 09:00 Escitalopram Oxalate (Lexapro) 10 mg DAILY PO Last administered on 11/10/18 09:21; Admin Dose 10 MG; Start 10/22/18 at 09:00 Albuterol/ Ipratropium (Duoneb) 3 ml Q8H RESP THERAPY HHN Last administered on 11/10/18 16:34; Admin Dose 3 ML; Start 10/22/18 at 00:00 Loratadine (Claritin) 10 mg DAILY PO Last administered on 11/10/18 09:21; A dmin Dose 10 MG; Start 10/22/18 at 09:00 Magnesium Hydroxide (Milk Of Mag) 30 ml DAILY PO Last administered on 11/10/18 09:22; Admin Dose 30 ML; Start 10/22/18 at 09:00 Oxycodone HCl (Oxycontin) 20 mg Q12 PO Last administered on 11/10/18 09:22; Admin Dose 20 MG; Start 10/22/18 at 09:00 Pantoprazole (Protonix Tab) 40 mg AC BREAKFAST PO Last administered on 11/10/18 05:24; Admin Dose 40 MG; Start 10/22/18 at 07:25 Polyethylene Glycol (Miralax) 17 gm DAILY PO Last administered on 11/10/18 09:22; Admin Dose 17 GM; Start 10/22/18 at 09:00 Simethicone (Mylicon) 80 mg Q8H PO Last administered on 11/08/18 15:50; Admin Dose 80 MG; Start 10/21/18 at 23:30 Spironolactone (Aldactone) 50 mg DAILY PO Last administered on 11/10/18 09:22; Admin Dose 50 MG; Start 10/22/18 at 09:00 Zolpidem Tartrate (Ambien) 10 mg HS PRN PO INSOMNIA Last administered on 11/04/18 23:51; Admin Dose 10 MG; Start 10/21/18 at 23:30 Morphine Sulfate (morphine) 2 mg Q4H PRN IV SEVERE PAIN LEVEL 7-10 Last administered on 11/07/18 13:24; Admin Dose 2 MG; Start 10/22/18 at 01:30 Phenol (Cepastat Lozenge) 1 lozenge Q1H PRN MT sore throat Last administered on 10/31/18 18:34; Admin Dose 1 LOZENGE; Start 10/27/18 at 21:30 Fluticasone Propionate (Flonase 0.05% Nasal) 1 spray BID NASAL Last administered on 11/10/18 09:25; Admin Dose 1 SPRAY; Start 10/29/18 at 21:00 Budesonide (Pulmicort (Neb)) 0.5 mg BID RESP THERAPY HHN Last administered on 11/10/18 09:05; Admin Dose 0.5 MG; Start 10/30/18 at 09:00 Metolazone (Zaroxolyn) 2.5 mg BID@0530,1730 PO Last administered on 11/10/18 18:08; Admin Dose 2.5 MG; Start 11/01/18 at 05:30 Furosemide (Lasix) 40 mg BID DIURETICS IV Last administered on 11/10/18 18:08; Admin Dose 40 MG; Start 11/01/18 at 18:00 Guaifenesin/ Codeine Phosphate (Robitussin Ac Liquid Cup) 10 ml Q4 PO Last administered on 11/10/18 18:07; Admin Dose 10 ML; Start 11/02/18 at 09:00 Enoxaparin Sodium (Lovenox) 40 mg DAILY SC Last administered on 11/10/18 09:24; Admin Dose 40 MG; Start 11/02/18 at 09:00 Potassium Chloride (Klor-Con 10) 10 meq BID PO Last administered on 11/10/18 09:22; Admin Dose 10 MEQ; Start 11/03/18 at 09:00 Ibuprofen (Motrin) 400 mg Q6H PRN PO MILD PAIN(1-3) OR TEMP>38C; Start 11/07/18 at 12:20 RUSS JEROME MD November 10, 2018 18:56
[2018-11-10 20:25] VITALS: BP 111/70; PULSE 87; RESP 18
--- NOTE | 2018-11-10 22:00 | CONS ---
Assessment/Plan Assessment/Plan Hospital Course (Demo Recall) METASTATIC BREAST CANCER WITH PRIMARY ADENOCARCINOMA IN the left breast. MULTIPLE BONY METS, PULMONARY METS, LIVER METS CHEMO ON HOLD PT HAS A VERY GOOD RESPONSE TO CHEMO AND AI CONT AI FOR NOW CT ABD FOR RESTAGING 08.27.18- noted , stable Leukopenia- post chemo, FLUCTUATING WITH RECENT WORSENING- post NEUPOGEN monitor closely post Neutropenia with occasional fever and chills. - resolved Anemia chronic disease SOB PLEURAL EFFUSIONS, NEG CYTOLOGY POST thoracentesis Fluid overload diuretic cardiology F-UP Severe pain in the interscapular and lumbar sacral area most probably metastatic lesion possible femoral fracture. pathologic fracture of T9 with 60% of loss of height. Bony pain with multiple bony mets post XRT will d/w dr Ocampo Obesity. Weight loss 60 pounds during the last 2 years COUGH, Upper respiratory infection pharyngitis with dry cough. POST ATB PMS. Myopia. Anxiety disorder. Claustrophobia. Posttraumatic stress disorder. Pain in the left forearm with a history of fracture of ulna and radius. Tachycardia Hypoxemia at night marginal improved after 2 L of nasal cannula oxygen. Deconditioning Pain syndrome. Today the most painful zone is in the right hip area. X-ray did not show any fractures. Hyponatremia- resolved Hypoalbuminemia Right sided cp after catheter insertion and correction less discomfort. Decreased edema both lower extremities with hypotension-improving Swelling of the left forearm-persist. Consultation Date/Type/Reason Admit Date/Time October 21, 2018 at 17:39 Initial Consult Date 10/21/18 Type of Consult [facility] Requesting Provider: RUSS JEROME MD Date/Time of Note DATE: 11/10/18 TIME: 21:58 24 HR Interval Summary Free Text/Dictation all noted nad no bleeding Exam/Review of Systems Exam Vitals Vital Signs Date Temp Pulse Resp B/P (MAP) Pulse Ox O2 O2 Flow FiO2 Time Delivery Rate 11/10/18 98.4 87 18 111/70 95 Room Air 20:25 (84) 11/10/18 2.0 16:38 11/10/18 27 02:07 Intake and Output 11/09/18 11/09/18 11/10/18 1515:00 23:00 07:00 IntakeIntake Total 120 ml 610 ml OutputOutput Total 400 ml BalanceBalance 120 ml 210 ml Exam HEENT: Head is normocephalic. NECK: Supple. HEART: Regular rate. LUNGS: Show diminished breath sounds at the base., COARSE, FEW RHONCHI ABDOMEN: Soft, nontender to palpation without rebound or guarding. EXTREMITIES: Negative for clubbing, cyanosis. Positive edema, improving. DERMATOLOGIC: No rashes. MUSCULOSKELETAL: No joint effusion. NEUROLOGIC: No change in exam. Results Result Diagram: 11/10/18 0428 11/10/18 0428 Results 24hrs Laboratory Tests Test 11/10/18 04:28 White Blood Count 4.9 Red Blood Count 3.12 L Hemoglobin 10.0 L Hematocrit 30.6 L Mean Corpuscular Volume 98.1 Mean Corpuscular Hemoglobin 32.1 Mean Corpuscular Hemoglobin Concent 32.7 Red Cell Distribution Width 15.5 H Platelet Count 221 Mean Platelet Volume 9.4 Immature Granulocytes % 0.000 L Neutrophils % 47.0 Lymphocytes % 36.1 Monocytes % 14.5 H Eosinophils % 1.6 Basophils % 0.8 Nucleated Red Blood Cells % 0.0 Immature Granulocytes # 0.000 Neutrophils # 2.3 Lymphocytes # 1.8 Monocytes # 0.7 Eosinophils # 0.1 Basophils # 0.0 Nucleated Red Blood Cells # 0.0 Sodium Level 135 Potassium Level 2.9 *L Chloride Level 95 L Carbon Dioxide Level 31 Anion Gap 9 Blood Urea Nitrogen 31 H Creatinine 0.90 Est Glomerular Filtrat Rate mL/min > 60 Glucose Level 102 Calcium Level 8.7 Phosphorus Level 5.3 H Magnesium Level 2.0 Medications Medication Current Medications Acetaminophen (Tylenol Tab) 650 mg Q4H PRN PO PAIN LEVEL 1-10/10 Last administered on 10/29/18at 17:15; Admin Dose 650 MG; Start 10/21/18 at 23:30 Anastrozole (Arimidex) 1 mg DAILY PO Last administered on 11/10/18 09:23; Admin Dose 1 MG; Start 10/22/18 at 09:00 Benazepril HCl (Lotensin) 5 mg DAILY PO Last administered on 10/30/18at 09:27; Admin Dose 5 MG; Start 10/22/18 at 09:00; Status Hold Bisacodyl (Dulcolax Supp) 10 mg Q8 [place] Last administered on 10/31/18at 16:42; Admin Dose 10 MG; Start 10/22/18 at 06:00 Carvedilol (Coreg) 3.125 mg BID PO Last administered on 11/10/18 20:33; Admin Dose 3.125 MG; Start 10/22/18 at 09:00 Docusate Sodium (Colace) 100 mg BID PO Last administered on 11/10/18 20:22; A dmin Dose 100 MG; Start 10/22/18 at 09:00 Escitalopram Oxalate (Lexapro) 10 mg DAILY PO Last administered on 11/10/18 09:21; Admin Dose 10 MG; Start 10/22/18 at 09:00 Loratadine (Claritin) 10 mg DAILY PO Last administered on 11/10/18 09:21; Admin Dose 10 MG; Start 10/22/18 at 09:00 Magnesium Hydroxide (Milk Of Mag) 30 ml DAILY PO Last administered on 11/10/18 09:22; Admin Dose 30 ML; Start 10/22/18 at 09:00 Oxycodone HCl (Oxycontin) 20 mg Q12 PO Last administered on 11/10/18 20:32; Admin Dose 20 MG; Start 10/22/18 at 09:00 Pantoprazole (Protonix Tab) 40 mg AC BREAKFAST PO Last administered on 11/10/18 05:24; Admin Dose 40 MG; Start 10/22/18 at 07:25 Polyethylene Glycol (Miralax) 17 gm DAILY PO Last administered on 11/10/18 09:22; Admin Dose 17 GM; Start 10/22/18 at 09:00 Simethicone (Mylicon) 80 mg Q8H PO Last administered on 11/08/18 15:50; Admin Dose 80 MG; Start 10/21/18 at 23:30 Spironolactone (Aldactone) 50 mg DAILY PO Last administered on 11/10/18 09:22; Admin Dose 50 MG; Start 10/22/18 at 09:00 Zolpidem Tartrate (Ambien) 10 mg HS PRN PO INSOMNIA Last administered on 23:51; Admin Dose 10 MG; Start 10/21/18 at 23:30 Morphine Sulfate (morphine) 2 mg Q4H PRN IV SEVERE PAIN LEVEL 7-10 Last administered on 11/07/18 13:24; Admin Dose 2 MG; Start 10/22/18 at 01:30 Phenol (Cepastat Lozenge) 1 lozenge Q1H PRN MT sore throat Last administered on 10/31/18 18:34; Admin Dose 1 LOZENGE; Start 10/27/18 at 21:30 Fluticasone Propionate (Flonase 0.05% Nasal) 1 spray BID NASAL Last administered on 11/10/18 09:25; Admin Dose 1 SPRAY; Start 10/29/18 at 21:00 Budesonide (Pulmicort (Neb)) 0.5 mg BID RESP THERAPY HHN Last administered on 11/10/18 09:05; Admin Dose 0.5 MG; Start 10/30/18 at 09:00 Metolazone (Zaroxolyn) 2.5 mg BID@0530,1730 PO Last administered on 11/10/18 18:08; Admin Dose 2.5 MG; Start 11/01/18 at 05:30 Furosemide (Lasix) 40 mg BID DIURETICS IV Last administered on 11/10/18 18:08; Admin Dose 40 MG; Start 11/01/18 at 18:00 Guaifenesin/ Codeine Phosphate (Robitussin Ac Liquid Cup) 10 ml Q4 PO Last administered on 11/10/18 20:22; Admin Dose 10 ML; Start 11/02/18 at 09:00 Enoxaparin Sodium (Lovenox) 40 mg DAILY SC Last administered on 11/10/18 09:24; Admin Dose 40 MG; Start 11/02/18 at 09:00 Potassium Chloride (Klor-Con 10) 10 meq BID PO Last administered on 11/10/18 20:22; Admin Dose 10 MEQ; Start 11/03/18 at 09:00 Ibuprofen (Motrin) 400 mg Q6H PRN PO MILD PAIN(1-3) OR TEMP>38C; Start 11/07/18 at 12:20 Albuterol/ Ipratropium (Duoneb) 3 ml Q8H RESP THERAPY PRN HHN SHORTNESS OF BREATH; Start 11/10/18 at 20:00 DES DUNAWAY MD November 10, 2018 22:00
[2018-11-11 02:29] VITALS: BP 102/65; PULSE 80; RESP 18
[2018-11-11] MEDS: BISACODYL 10 MG SUPP PR SCH ×3 (06:00→22:00)
[2018-11-11] MEDS: PANTOPRAZOLE (EC) 40 MG TAB PO SCH (06:25)
[2018-11-11] MEDS: GUAIFENESIN/CODEINE 5ML CUP PO SCH ×5 (06:25→21:02)
[2018-11-11] MEDS: METOLAZONE 2.5 MG TAB PO SCH ×2 (06:29→17:52)
[2018-11-11] MEDS: FUROSEMIDE 40 MG INJ IV SCH ×2 (06:59→17:52)
[2018-11-11] MEDS: BUDESONIDE (NEB) 0.5MG/2ML AMP HHN SCH ×2 (07:33→20:16)
[2018-11-11] MEDS ORDERED: POTASSIUM CHLORIDE (SR) 20 MEQ TAB PO STA (07:56)
--- NOTE | 2018-11-11 08:17 | PN ---
DATE: 11/11/2018 SUBJECTIVE: The patient is stable, no events overnight. OBJECTIVE: VITAL SIGNS: Blood pressure is 102/66, respirations 18, pulse 80, temperature 98.4. HEENT: Head is normocephalic. NECK: Supple. HEART: Regular rate. LUNGS: Show diminished breath sounds at the base. ABDOMEN: Soft, nontender to palpation without rebound or guarding. EXTREMITIES: Negative for clubbing, cyanosis. Trace edema. DERMATOLOGIC: No rashes. MUSCULOSKELETAL: No joint effusion. NEUROLOGIC: No change in exam. MEDICATIONS: Reviewed. LABORATORY DATA: Reviewed. ASSESSMENT AND PLAN: 1. Volume overload. Etiology is multifactorial secondary to diastolic heart failure, questionable p ortal hypertension due to metastatic disease, questionable lymphangitic spread of cancer. The patien t is currently on metolazone, Aldactone and Lasix. We will continue to monitor. 2. Alkalosis secondary to diuretic therapy, hypokalemia. We will correct hypokalemia and monitor. The patient is status post Diamox. 3. Hypokalemia. Continue to monitor and replete. Continue Aldactone. 4. Nonoliguric acute kidney injury. Etiology is secondary to hemodynamics. Continue to monitor niranjan al function closely on diuretic therapy. 5. Mineral bone disorder, monitor calcium and phosphorus levels. 6. Breast cancer with metastasis to the liver and spine. Continue to monitor. 7. History of hip fracture, status post arthroplasty. 8. Pleural effusion, status post thoracentesis. 9. Chronic pain syndrome. Continue current pain regimen. 10. Status post bronchitis. Dictated By: ANDRÉS TATUM DO NR/NTS Conf#: [id number] DID#: [id number] CC: RUSS JEROME MD;*EndCC*
--- NOTE | 2018-11-11 08:43 | PN ---
Date/Time of Note Date/Time of Note DATE: 11/11/18 TIME: 08:40 Assessment/Plan VTE Prophylaxis Risk score (from Nsg)>0 risk: 9 SCD applied (from Nsg): Yes SCD contraindicated: other (on.) Pharmacological prophylaxis: LMWH Lines/Catheters IV Catheter Type (from Nrsg): Peripheral IV Central line still needed: Yes Urinary Cath still in place: No Assessment/Plan Hospital Course Rrecurrent thoracentesis from left pleural cavity.Bronchitis got treated slowly. CHF improved but not totally gone. Continue current chemotherapy bronchodilator therapy correction of fluid his electrolytes and follow the algorithm for a total synthesis planning. Assessment/Plan 1. PRIMARY ADENOCARCINOMA of the left breast. MULTIPLE BONY METS, PULMONARY METS;LIVER METS CHEMO ON HOLD; PT HAS A VERY GOOD RESPONSE TO CHEMO AND AI 2. Severe pain in the interscapular and lumbar sacral area most probably metastatic lesion possible femoral fracture. pathologic fracture of T9 with 60% of loss of height. Neurosurgical f/u. 3. Obesity. 4. Weight loss 60 pounds during the last 2 years by diet 5. PMS. 6. Myopia. 7. Anemia chronic disease with a drop of her hematocrit to 27; Latest results 28. Will recheck tomorrow;Leukopenia.Thrombocytopenia; 8. Anxiety disorder. Claustrophobia. Increase Ativan to 1 mg every 8 as needed at Lexapro 10 mg daily. 9. Posttraumatic stress disorder. 10. Pain in the left forearm with a history of fracture of ulna and radius. 11. Tachycardia-resolved 12. Hypoxemia at night marginal improved after 2 L of nasal cannula oxygen. 13. Deconditioning 14. 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 MRI: 09/28/18:diffuse osseous metastatic disease with multiple pathologic compression fractures at least involving the T4, T5, T7, T9 and T11 levels. There is likely mild cortical breakthrough at several levels resulting in mild central canal narrowing. No gross evidence of cord compression is seen.. 15. Pain syndrome. Today the most painful zone is in the right hip area. 16. Hyponatremia-corrected; today and hold Aldactone today. 17. Leucopenia-improved. 18. Neutropenia with occasional fever and chills. Last chemotherapy 5 days ago. 19. Hypoalbuminemia. 20.Right sided cp after catheter insertion and correction less discomfort. 21. Decreased edema both lower extremities with [id number] with Pleural and Pericardial effusion. 22. pain syndrome 23.bilateral pleural effusions ; s/p recurrent left thoracentesis Reaccumulation of the pleural fluid. 24. Systolic over diastolic congestive heart failure with a right more than left lower extremity swelling with no DVT in latest venous Doppler. 25. Swelling of the left forearm-persist. Cellulitis of the left forearm with decreased edema anteriorly.-Today it is less edematous 26. Pathologic fracture of the right hip;s/p hemiarthroplasty of right hip . 27. Dizziness 28. Chills. 29. Memory impairment. 30. Upper respiratory infection pharyngitis with dry cough. 31. Decreased voice with wheezing. 32. Headaches 33. Hypokalemia-elevated level today 3.2 we will continue supplement . Result Diagram: 11/10/18 0428 11/11/18 0506 Results 24hrs Laboratory Tests Test 11/11/18 05:06 Sodium Level 137 Potassium Level 3.2 L Chloride Level 96 L Carbon Dioxide Level 33 H Anion Gap 8 Blood Urea Nitrogen 29 H Creatinine 0.94 Est Glomerular Filtrat Rate mL/min > 60 Glucose Level 123 Calcium Level 8.8 Phosphorus Level 5.3 H Magnesium Level 2.0 Subjective 24 Hr Interval Summary Free Text/Dictation Every time when I am getting up right hip pain is stopping me. I am overcoming the pain and sometimes when I cannot overcome I am asking for pain medication. Generalized weakness. Constitutional: improved, poor po; No no complaints, No chills, No diaphoresis, No disoriented, No febrile, No requiring IVF, No requiring O2, No other Eyes: No no complaints, No pain, No discharge, No redness, No visual change, No other ENT: congestion, dysphagia, sore throat; No no complaints, No bleeding, No pain, No discharge, No other Respiratory: cough, pleuritic pain, shortness of breath; No no complaints, No pain, No sputum, No wheezing, No other Cardiovascular: chest pain, edema, orthopenea, palpitations; No no complaints, No lightheadedness, No paroxysmal nocturnal dyspnea, No other Gastrointestinal: constipation, decreased appetite, nausea, passing stool; No no complaints, No pain, No blood, No diarrhea, No flatus, No vomiting, No other Genitourinary: dysuria, flank pain; No no complaints, No bleeding, No discharge, No hematuria, No other Musculoskeletal: back pain, bone/joint pain, neck pain Skin: pruritis, rash; No no complaints, No bruising, No erythema, No laceration, No skin lesions, No other Neurologic: dizziness; No no complaints, No confusion, No focal-weakness, No headache, No syncope, No seizure, No other Psychological: anxiety, depression; No no complaints, No nl mood/affect, No confusion, No suicidal, No other Exam/Review of Systems Exam Vitals Vital Signs Date Temp Pulse Resp B/P (MAP) Pulse Ox O2 O2 Flow FiO2 Time Delivery Rate 11/11/18 72 18 98 Nasal 2.0 07:33 Cannula 11/11/18 98.4 102/65 02:29 (77) 11/10/18 02:07 Intake and Output 11/10/18 11/10/18 11/11/18 1515:00 23:00 07:00 IntakeIntake Total 300 ml BalanceBalance 300 ml Constitutional: alert, oriented, well developed, distress, frail, obese Psych: anxiety, depression; No no complaints, No nl mood/affect, No confusion, No suicidal, No other Head: normocephalic, atraumatic; No lacerations, No hematomas, No other Eyes: EOMI, nl lids; No nl conjunctiva, No nl sclera, No PERRL, No icteric, No fundi, disc, No other ENMT: No nl external ears & nose, No nl lips & teeth, No nl nasal mucosa & septum, No mucosa pink and moist, No intubated, No tympanic membranes, No other Neck: bruits, thyromegaly; No supple, No non-tender, No jvd, No masses, No nuchal rigidity, No other Respiratory: normal air movement, congested cough, diminished breath sounds (Decreased breath sounds on the left side posteriorly inferior half.) Cardiovascular: nl pulses, edema, systolic murmur; No regular rate and rhythm, No bruits, No diastolic murmur, No gallop, No irregular rhythm, No jugular venous distention (JVD), No murmurs/extra sounds, No rub, No S3, No S4, No other Gastrointestinal: soft, nl liver, spleen, bowel sounds; No non-tender, No ascites, No distended, No firm, No hepatomegaly, No mass, No rebound or guarding, No splenomegaly, No surgical scars, No tender, No other Genitourinary - Female: No nl adnexae, No nl external genitalia, No CMT, No CVA tenderness, No uterus, No other Musculoskeletal: nl gait and stance, joint tenderness, muscle tone, muscle weakness; No nl extremities to inspection, No range of motion, No spine non-tender, No swelling, No other Extremities: No normal pulses, No calf tenderness, No cyanosis, No clubbing, No edema, No pitting pedal edema, No palpable cord, No tenderness, No other Neurological: 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8 Phosphorus Level 5.3 H Magnesium Level 2.0 Medications Medication Current Medications Acetaminophen (Tylenol Tab) 650 mg Q4H PRN PO PAIN LEVEL 1-10/10 Last administered on 10/29/18at 17:15; Admin Dose 650 MG; Start 10/21/18 at 23:30 Anastrozole (Arimidex) 1 mg DAILY PO Last administered on 11/10/18at 09:23; Admin Dose 1 MG; Start 10/22/18 at 09:00 Benazepril HCl (Lotensin) 5 mg DAILY PO Last administered on 10/30/18at 09:27; Admin Dose 5 MG; Start 10/22/18 at 09:00; Status Hold Bisacodyl (Dulcolax Supp) 10 mg Q8 DC Last administered on 10/31/18at 16:42; Admin Dose 10 MG; Start 10/22/18 at 06:00 Carvedilol (Coreg) 3.125 mg BID PO Last administered on 11/10/18 20:33; Admin Dose 3.125 MG; Start 10/22/18 at 09:00 Docusate Sodium (Colace) 100 mg BID PO Last administered on 11/10/18 20:22; Admin Dose 100 MG; Start 10/22/18 at 09:00 Escitalopram Oxalate (Lexapro) 10 mg DAILY PO Last administered on 11/10/18 09:21; Admin Dose 10 MG; Start 10/22/18 at 09:00 Loratadine (Claritin) 10 mg DAILY PO Last administered on 11/10/18 09:21; Admin Dose 10 MG; Start 10/22/18 at 09:00 Magnesium Hydroxide (Milk Of Mag) 30 ml DAILY PO Last administered on 11/10/18 09:22; Admin Dose 30 ML; Start 10/22/18 at 09:00 Oxycodone HCl (Oxycontin) 20 mg Q12 PO Last administered on 11/10/18 20:32; Admin Dose 20 MG; Start 10/22/18 at 09:00 Pantoprazole (Protonix Tab) 40 mg AC BREAKFAST PO Last administered on 11/11/18 06:25; Admin Dose 40 MG; Start 10/22/18 at 07:25 Polyethylene Glycol (Miralax) 17 gm DAILY PO Last administered on 11/10/18 09:22; Admin Dose 17 GM; Start 10/22/18 at 09:00 Simethicone (Mylicon) 80 mg Q8H PO Last administered on 11/08/18 15:50; Admin Dose 80 MG; Start 10/21/18 at 23:30 Spironolactone (Aldactone) 50 mg DAILY PO Last administered on 11/10/18 09:22; Admin Dose 50 MG; Start 10/22/18 at 09:00 Zolpidem Tartrate (Ambien) 10 mg HS PRN PO INSOMNIA Last administered on 11/04/18 23:51; Admin Dose 10 MG; Start 10/21/18 at 23:30 Morphine Sulfate (morphine) 2 mg Q4H PRN IV SEVERE PAIN LEVEL 7-10 Last admi nistered on 11/07/18 13:24; Admin Dose 2 MG; Start 10/22/18 at 01:30 Phenol (Cepastat Lozenge) 1 lozenge Q1H PRN MT sore throat Last administered on 10/31/18 18:34; Admin Dose 1 LOZENGE; Start 10/27/18 at 21:30 Fluticasone Propionate (Flonase 0.05% Nasal) 1 spray BID NASAL Last administered on 11/10/18 09:25; Admin Dose 1 SPRAY; Start 10/29/18 at 21:00 Budesonide (Pulmicort (Neb)) 0.5 mg BID RESP THERAPY HHN Last administered on 11/11/18 07:33; Admin Dose 0.5 MG; Start 10/30/18 at 09:00 Metolazone (Zaroxolyn) 2.5 mg BID@0530,1730 PO Last administered on 11/11/18 06:29; Admin Dose 2.5 MG; Start 11/01/18 at 05:30 Furosemide (Lasix) 40 mg BID DIURETICS IV Last administered on 11/11/18 06:59; Admin Dose 40 MG; Start 11/01/18 at 18:00 Guaifenesin/ Codeine Phosphate (Robitussin Ac Liquid Cup) 10 ml Q4 PO Last administered on 11/11/18 06:25; Admin Dose 10 ML; Start 11/02/18 at 09:00 Enoxaparin Sodium (Lovenox) 40 mg DAILY SC Last administered on 11/10/18 09:24; Admin Dose 40 MG; Start 11/02/18 at 09:00 Ibuprofen (Motrin) 400 mg Q6H PRN PO MILD PAIN(1-3) OR TEMP>38C; Start 11/07/18 at 12:20 Albuterol/ Ipratropium (Duoneb) 3 ml Q8H RESP THERAPY PRN HHN SHORTNESS OF BREATH; Start 11/10/18 at 20:00 Potassium Chloride (Klor-Con 20) 20 meq BID PO ; Start 11/11/18 at 09:00; Status UNV RUSS JEROME MD November 11, 2018 08:43
[2018-11-11] MEDS: MAGNESIUM HYDROXIDE 30ML CUP PO SCH (08:53)
[2018-11-11] MEDS: POLYETHYLENE GLYCOL 17 GM PACKET PO SCH (08:53)
[2018-11-11] MEDS: ESCITALOPRAM 10 MG TAB PO SCH (08:53)
[2018-11-11] MEDS: SPIRONOLACTONE 50 MG TAB PO SCH (08:53)
[2018-11-11] MEDS: LORATADINE 10 MG TAB PO SCH (08:53)
[2018-11-11] MEDS: DOCUSATE SODIUM 100 MG CAP PO SCH ×2 (08:53→21:04)
[2018-11-11] MEDS: ENOXAPARIN 40 MG/0.4 ML SYG SC SCH (08:55)
[2018-11-11] MEDS: ANASTROZOLE 1 MG TAB PO SCH (08:55)
[2018-11-11] MEDS: oxyCODONE (CR) 20 MG TAB [oxyCONTIN] PO SCH ×2 (08:58→21:04)
[2018-11-11] MEDS: FLUTICASONE 0.05% 16 GM NAS SPRAY NASAL SCH ×2 (08:58→21:00)
[2018-11-11 09:12] VITALS: BP 131/72; PULSE 86; RESP 18
[2018-11-11] MEDS: POTASSIUM CHLORIDE (SR) 20 MEQ TAB PO SCH ×2 (09:16→21:03)
[2018-11-11 14:53] VITALS: BP 116/76; PULSE 92; RESP 18
--- NOTE | 2018-11-11 15:33 | CONS ---
Assessment/Plan Assessment/Plan Hospital Course (Demo Recall) IMPRESSION: 1. Congestive heart failure exacerbation would be diastolic, acute on chronic by most recent echo.-now s/p echo this admit with EF 60/small effusion 2. Abnormal electrocardiogram with low voltage, rule out pericardial effusion. 3. Hypertension-currently borderline hypotension 4. Metastatic breast carcinoma. 5. History of pathologic fractures of the leg, status post open reduction and internal fixation. 6. Anemia. 7. Increased BNP consistent with patient's congestive heart failure. 8. Pericardial effusion-small by echo 9. Edema-LE venous UTZneg for DVT 10. Hypokalemia-s/p repletion today/on aldactone Recc: -On med-surg -Now resumed on lasix with metolazone and aldactone with overall significantly iumproved volume status and resolution of LLE edema -Continue current coreg as tolerated only and continue to hold benazepril at this time and follow BP clsoely -follow K clsoely s/p repletion today and on aldactone -D/C planning-awaiting placement Consultation Date/Type/Reason Admit Date/Time October 21, 2018 at 17:39 Initial Consult Date 10/21/18 Type of Consult Cardiology Reason for Consultation CHF Requesting Provider: RUSS JEROME MD Date/Time of Note DATE: 11/11/18 TIME: 15:29 Exam/Review of Systems Vital Signs Vitals Vital Signs Date Temp Pulse Resp B/P (MAP) Pulse Ox O2 O2 Flow FiO2 Time Delivery Rate 11/11/18 98.3 92 18 116/76 99 Room Air 14:53 (89) 11/11/18 2.0 07:33 11/10/18 02:07 Intake and Output 11/10/18 11/10/18 11/11/18 1515:00 23:00 07:00 IntakeIntake Total 300 ml BalanceBalance 300 ml Exam Exam Review of Systems: CONSTITUTIONAL: No fevers, chills. PULMONARY: No sob CARDIOVASCULAR: No chest pain/palpitations GASTROINTESTINAL: No nausea/vomiting. GENITOURINARY: No hematuria/dysuria. MUSCULOSKELETAL: No myagias/arthalgias. PSYCHIATRIC: The patient denies depression. NEUROLOGIC: No weakness Constitutional: alert Psych: no complaints Head: normocephalic ENMT: mucosa pink and moist Neck: supple, jvd Respiratory: diminished breath sounds (at bases/B) Cardiovascular: regular rate and rhythm Gastrointestinal: soft, non-tender Musculoskeletal: muscle weakness (mild generalized) Extremities: pitting pedal edema (R>L) Labs Result Diagram: 11/10/18 0428 11/11/18 0506 Results 24hrs Laboratory Tests Test 11/11/18 05:06 Sodium Level 137 Potassium Level 3.2 L Chloride Level 96 L Carbon Dioxide Level 33 H Anion Gap 8 Blood Urea Nitrogen 29 H Creatinine 0.94 Est Glomerular Filtrat Rate mL/min > 60 Glucose Level 123 Calcium Level 8.8 Phosphorus Level 5.3 H Magnesium Level 2.0 Medications Medications Current Medications Acetaminophen (Tylenol Tab) 650 mg Q4H PRN PO PAIN LEVEL 1-1010 Last administered on 10/29/18 17:15; Admin Dose 650 MG; Start 10/21/18 at 23:30 Anastrozole (Arimidex) 1 mg DAILY PO Last administered on 11/11/18 08:55; Admin Dose 1 MG; Start 10/22/18 at 09:00 Benazepril HCl (Lotensin) 5 mg DAILY PO Last administered on 10/30/18 09:27; Admin Dose 5 MG; Start 10/22/18 at 09:00; Status Hold Bisacodyl (Dulcolax Supp) 10 mg Q8 AR Last administered on 10/31/18 16:42; Admin Dose 10 MG; Start 10/22/18 at 06:00 Carvedilol (Coreg) 3.125 mg BID PO Last administered on 11/11/18 08:54; Admin Dose 3.125 MG; Start 10/22/18 at 09:00 Docusate Sodium (Colace) 100 mg BID PO Last administered on 11/11/18 08:53; Admin Dose 100 MG; Start 10/22/18 at 09:00 Escitalopram Oxalate (Lexapro) 10 mg DAILY PO Last administered on 11/11/18 08:53; Admin Dose 10 MG; Start 10/22/18 at 09:00 Loratadine (Claritin) 10 mg DAILY PO Last administered on 11/11/18 08:53; Admin Dose 10 MG; Start 10/22/18 at 09:00 Magnesium Hydroxide (Milk Of Mag) 30 ml DAILY PO Last administered on 11/11/18 08:53; Admin Dose 30 ML; Start 10/22/18 at 09:00 Oxycodone HCl (Oxycontin) 20 mg Q12 PO Last administered on 11/11/18 08:58; Admin Dose 20 MG; Start 10/22/18 at 09:00 Pantoprazole (Protonix Tab) 40 mg AC BREAKFAST PO Last administered on 11/11/18 06:25; Admin Dose 40 MG; Start 10/22/18 at 07:25 Polyethylene Glycol (Miralax) 17 gm DAILY PO Last administered on 11/11/18 08:53; Admin Dose 17 GM; Start 10/22/18 at 09:00 Simethicone (Mylicon) 80 mg Q8H PO Last administered on 11/08/18 15:50; Admin Dose 80 MG; Start 10/21/18 at 23:30 Spironolactone (Aldactone) 50 mg DAILY PO Last administered on 11/11/18 08:53; Admin Dose 50 MG; Start 10/22/18 at 09:00 Zolpidem Tartrate (Ambien) 10 mg HS PRN PO INSOMNIA Last administered on 11/04/18 23:51; Admin Dose 10 MG; Start 10/21/18 at 23:30 Morphine Sulfate (morphine) 2 mg Q4H PRN IV SEVERE PAIN LEVEL 7-10 Last administered on 11/07/18 13:24; Admin Dose 2 MG; Start 10/22/18 at 01:30 Phenol (Cepastat Lozenge) 1 lozenge Q1H PRN MT sore throat Last administered on 10/31/18 18:34; Admin Dose 1 LOZENGE; Start 10/27/18 at 21:30 Fluticasone Propionate (Flonase 0.05% Nasal) 1 spray BID NASAL Last adm inistered on 11/10/18 09:25; Admin Dose 1 SPRAY; Start 10/29/18 at 21:00 Budesonide (Pulmicort (Neb)) 0.5 mg BID RESP THERAPY HHN Last administered on 11/11/18 07:33; Admin Dose 0.5 MG; Start 10/30/18 at 09:00 Metolazone (Zaroxolyn) 2.5 mg BID@9830,1950 PO Last administered on 11/11/18 06:29; Admin Dose 2.5 MG; Start 11/01/18 at 05:30 Furosemide (Lasix) 40 mg BID DIURETICS IV Last administered on 11/11/18at 06:59; Admin Dose 40 MG; Start 11/01/18 at 18:00 Guaifenesin/ Codeine Phosphate (Robitussin Ac Liquid Cup) 10 ml Q4 PO Last administered on 11/11/18at 12:35; Admin Dose 10 ML; Start 11/02/18 at 09:00 Enoxaparin Sodium (Lovenox) 40 mg DAILY SC Last administered on 11/11/18at 08:55; Admin Dose 40 MG; Start 11/02/18 at 09:00 Ibuprofen (Motrin) 400 mg Q6H PRN PO MILD PAIN(1-3) OR TEMP>38C; Start 11/07/18 at 12:20 Albuterol/ Ipratropium (Duoneb) 3 ml Q8H RESP THERAPY PRN HHN SHORTNESS OF BREATH; Start 11/10/18 at 20:00 Potassium Chloride (Klor-Con 20) 20 meq BID PO Last administered on 11/11/18at 09:16; Admin Dose 20 MEQ; Start 11/11/18 at 09:00 KAMILA TERESA November 11, 2018 15:33
[2018-11-11 20:45] VITALS: BP 121/68; PULSE 89; RESP 19
[2018-11-11] MEDS ORDERED: POTASSIUM CHLORIDE (SR) 20 MEQ TAB PO SCH (21:00)
[2018-11-11] MEDS: ZOLPIDEM 5 MG TAB PO PRN (23:03)
--- NOTE | 2018-11-11 23:34 | CONS ---
Assessment/Plan Assessment/Plan Hospital Course (Demo Recall) METASTATIC BREAST CANCER WITH PRIMARY ADENOCARCINOMA IN the left breast. MULTIPLE BONY METS, PULMONARY METS, LIVER METS CHEMO ON HOLD PT HAS A VERY GOOD RESPONSE TO CHEMO AND AI CONT AI FOR NOW CT ABD FOR RESTAGING 08.27.18- noted , stable Leukopenia- post chemo, FLUCTUATING WITH RECENT WORSENING- post NEUPOGEN monitor closely post Neutropenia with occasional fever and chills. - resolved Anemia chronic disease SOB PLEURAL EFFUSIONS, NEG CYTOLOGY POST thoracentesis Fluid overload diuretic cardiology F-UP Severe pain in the interscapular and lumbar sacral area most probably metastatic lesion possible femoral fracture. pathologic fracture of T9 with 60% of loss of height. Bony pain with multiple bony mets post XRT will d/w dr Damaris Loaiza. Weight loss 60 pounds during the last 2 years COUGH, Upper respiratory infection pharyngitis with dry cough. POST ATB PMS. Myopia. Anxiety disorder. Claustrophobia. Posttraumatic stress disorder. Pain in the left forearm with a history of fracture of ulna and radius. Tachycardia Hypoxemia at night marginal improved after 2 L of nasal cannula oxygen. Deconditioning Pain syndrome. Today the most painful zone is in the right hip area. X-ray did not show any fractures. Hyponatremia- resolved Hypoalbuminemia Right sided cp after catheter insertion and correction less discomfort. Decreased edema both lower extremities with hypotension-improving Swelling of the left forearm-persist. Consultation Date/Type/Reason Admit Date/Time October 21, 2018 at 17:39 Initial Consult Date 10/21/18 Type of Consult [facility] Requesting Provider: RUSS JEROME MD Date/Time of Note DATE: 11/11/18 TIME: 23:34 24 HR Interval Summary Free Text/Dictation ALL NOTED D/W PT AND RN Exam/Review of Systems Exam Vitals Vital Signs Date Temp Pulse Resp B/P (MAP) Pulse Ox O2 O2 Flow FiO2 Time Delivery Rate 11/11/18 98.3 89 19 121/68 92 20:45 (85) 11/11/18 2.0 20:16 11/11/18 Nasal 20:16 Cannula 11/10/18 02:07 Intake and Output 11/10/18 11/10/18 11/11/18 1515:00 23:00 07:00 IntakeIntake Total 300 ml BalanceBalance 300 ml Exam HEENT: Head is normocephalic. NECK: Supple. HEART: Regular rate. LUNGS: Show diminished breath sounds at the base., COARSE, FEW RHONCHI ABDOMEN: Soft, nontender to palpation without rebound or guarding. EXTREMITIES: Negative for clubbing, cyanosis. Positive edema, improving. DERMATOLOGIC: No rashes. MUSCULOSKELETAL: No joint effusion. NEUROLOGIC: No change in exam. Results Result Diagram: 11/10/18 0428 11/11/18 0506 Results 24hrs Laboratory Tests Test 11/11/18 05:06 Sodium Level 137 Potassium Level 3.2 L Chloride Level 96 L Carbon Dioxide Level 33 H Anion Gap 8 Blood Urea Nitrogen 29 H Creatinine 0.94 Est Glomerular Filtrat Rate mL/min > 60 Glucose Level 123 Calcium Level 8.8 Phosphorus Level 5.3 H Magnesium Level 2.0 Medications Medication Current Medications Acetaminophen (Tylenol Tab) 650 mg Q4H PRN PO PAIN LEVEL 1-10/10 Last adminis tered on 10/29/18 17:15; Admin Dose 650 MG; Start 10/21/18 at 23:30 Anastrozole (Arimidex) 1 mg DAILY PO Last administered on 11/11/18 08:55; Admin Dose 1 MG; Start 10/22/18 at 09:00 Benazepril HCl (Lotensin) 5 mg DAILY PO Last administered on 10/30/18 09:27; Admin Dose 5 MG; Start 10/22/18 at 09:00; Status Hold Bisacodyl (Dulcolax Supp) 10 mg Q8 NH Last administered on 10/31/18 16:42; Admin Dose 10 MG; Start 10/22/18 at 06:00 Carvedilol (Coreg) 3.125 mg BID PO Last administered on 11/11/18 21:03; Admin Dose 3.125 MG; Start 10/22/18 at 09:00 Docusate Sodium (Colace) 100 mg BID PO Last administered on 11/11/18 21:04; Admin Dose 100 MG; Start 10/22/18 at 09:00 Escitalopram Oxalate (Lexapro) 10 mg DAILY PO Last administered on 11/11/18 08:53; Admin Dose 10 MG; Start 10/22/18 at 09:00 Loratadine (Claritin) 10 mg DAILY PO Last administered on 11/11/18 08:53; Admin Dose 10 MG; Start 10/22/18 at 09:00 Magnesium Hydroxide (Milk Of Mag) 30 ml DAILY PO Last administered on 11/11/18 08:53; Admin Dose 30 ML; Start 10/22/18 at 09:00 Oxycodone HCl (Oxycontin) 20 mg Q12 PO Last administered on 11/11/18 21:04; Admin Dose 20 MG; Start 10/22/18 at 09:00 Pantoprazole (Protonix Tab) 40 mg AC BREAKFAST PO Last administered on 11/11/18 06:25; Admin Dose 40 MG; Start 10/22/18 at 07:25 Polyethylene Glycol (Miralax) 17 gm DAILY PO Last administered on 11/11/18 08:53; Admin Dose 17 GM; Start 10/22/18 at 09:00 Simethicone (Mylicon) 80 mg Q8H PO Last administered on 11/08/18 15:50; Admin Dose 80 MG; Start 10/21/18 at 23:30 Spironolactone (Aldactone) 50 mg DAILY PO Last administered on 11/11/18 08:53; Admin Dose 50 MG; Start 10/22/18 at 09:00 Zolpidem Tartrate (Ambien) 10 mg HS PRN PO INSOMNIA Last administered on 11/11/18 23:03; Admin Dose 5 MG; Start 10/21/18 at 23:30 Morphine Sulfate (morphine) 2 mg Q4H PRN IV SEVERE PAIN LEVEL 7-10 Last administered on 11/07/18 13:24; Admin Dose 2 MG; Start 10/22/18 at 01:30 Phenol (Cepastat Lozenge) 1 lozenge Q1H PRN MT sore throat Last administered on 10/31/18 18:34; Admin Dose 1 LOZENGE; Start 10/27/18 at 21:30 Fluticasone Propionate (Flonase 0.05% Nasal) 1 spray BID NASAL Last administered on 11/10/18 09:25; Admin Dose 1 SPRAY; Start 10/29/18 at 21:00 Budesonide (Pulmicort (Neb)) 0.5 mg BID RESP THERAPY HHN Last administered on 11/11/18 20:16; Admin Dose 0.5 MG; Start 10/30/18 at 09:00 Metolazone (Zaroxolyn) 2.5 mg BID@0530,1730 PO Last administered on 11/11/18 17:52; Admin Dose 2.5 MG; Start 11/01/18 at 05:30 Furosemide (Lasix) 40 mg BID DIURETICS IV Last administered on 11/11/18 17:52; Admin Dose 40 MG; Start 11/01/18 at 18:00 Guaifenesin/ Codeine Phosphate (Robitussin Ac Liquid Cup) 10 ml Q4 PO Last administered on 11/11/18 21:02; Admin Dose 10 ML; Start 11/02/18 at 09:00 Enoxaparin Sodium (Lovenox) 40 mg DAILY SC Last administered on 11/11/18 08:55; Admin Dose 40 MG; Start 11/02/18 at 09:00 Ibuprofen (Motrin) 400 mg Q6H PRN PO MILD PAIN(1-3) OR TEMP>38C; Start 11/07/18 at 12:20 Albuterol/ Ipratropium (Duoneb) 3 ml Q8H RESP THERAPY PRN HHN SHORTNESS OF BREATH; Start 11/10/18 at 20:00 Potassium Chloride (Klor-Con 20) 20 meq BID PO Last administered on 11/11/18 21:03; Admin Dose 20 MEQ; Start 11/11/18 at 09:00 DES DUNAWAY MD November 11, 2018 23:34
[2018-11-12] MEDS: GUAIFENESIN/CODEINE 5ML CUP PO SCH ×6 (01:15→21:07)
[2018-11-12] MEDS: morphine 2 MG INJ IV PRN (01:15)
[2018-11-12 04:43] VITALS: BP 109/56; PULSE 82
[2018-11-12] MEDS: METOLAZONE 2.5 MG TAB PO SCH ×2 (04:43→18:31)
[2018-11-12] MEDS: BISACODYL 10 MG SUPP PR SCH ×3 (06:00→22:00)
[2018-11-12 06:02] VITALS: BP 103/65; PULSE 80
[2018-11-12] MEDS: PANTOPRAZOLE (EC) 40 MG TAB PO SCH (06:04)
[2018-11-12] MEDS: FUROSEMIDE 40 MG INJ IV SCH (06:04)
--- NOTE | 2018-11-12 07:30 | PN ---
Date/Time of Note Date/Time of Note DATE: 11/12/18 TIME: 07:29 Assessment/Plan VTE Prophylaxis Risk score (from Nsg)>0 risk: 11 SCD applied (from Ns): Yes SCD contraindicated: other (on.) Pharmacological prophylaxis: LMWH Lines/Catheters IV Catheter Type (from Nrsg): Peripheral IV Central line still needed: No Urinary Cath still in place: No Assessment/Plan Hospital Course Rrecurrent thoracentesis from left pleural cavity.Bronchitis got treated slowly. CHF improved but not totally gone. Continue current chemotherapy bronchodilator therapy correction of fluid his electrolytes and follow the algorithm for a total synthesis planning. Assessment/Plan 1. PRIMARY ADENOCARCINOMA of the left breast. MULTIPLE BONY METS, PULMONARY METS;LIVER METS CHEMO ON HOLD; PT HAS A VERY GOOD RESPONSE TO CHEMO AND AI 2. Severe pain in the interscapular and lumbar sacral area most probably metastatic lesion possible femoral fracture. pathologic fracture of T9 with 60% of loss of height. Neurosurgical f/u. 3. Obesity. 4. Weight loss 60 pounds during the last 2 years by diet 5. PMS. 6. Myopia. 7. Anemia chronic disease with a drop of her hematocrit to 27; Latest results 28. Will recheck tomorrow;Leukopenia.Thrombocytopenia; 8. Anxiety disorder. Claustrophobia. Increase Ativan to 1 mg every 8 as needed at Lexapro 10 mg daily. 9. Posttraumatic stress disorder. 10. Pain in the left forearm with a history of fracture of ulna and radius. 11. Tachycardia-resolved 12. Hypoxemia at night marginal improved after 2 L of nasal cannula oxygen. 13. Deconditioning 14. 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 MRI: 09/28/18:diffuse osseous metastatic disease with multiple pathologic compression fractures at least involving the T4, T5, T7, T9 and T11 levels. There is likely mild cortical breakthrough at several levels resulting in mild central canal narrowing. No gross evidence of cord compression is seen.. 15. Pain syndrome. Today the most painful zone is in the right hip area. 16. Hyponatremia-corrected; today and hold Aldactone today. 17. Leucopenia-improved. 18. Neutropenia with occasional fever and chills. Last chemotherapy 5 days ago. 19. Hypoalbuminemia. 20.Right sided cp after catheter insertion and correction less discomfort. 21. Decreased edema both lower extremities with atemvgmiqoy-efytukare-Raukvzog with Pleural and Pericardial effusion. 22. pain syndrome 23.bilateral pleural effusions ; s/p recurrent left thoracentesis Reaccumulation of the pleural fluid. 24. Systolic over diastolic congestive heart failure with a right more than left lower extremity swelling with no DVT in latest venous Doppler. 25. Swelling of the left forearm-persist. Cellulitis of the left forearm with decreased edema anteriorly.-Today it is less edematous 26. Pathologic fracture of the right hip;s/p hemiarthroplasty of right hip . 27. Dizziness 28. Chills. 29. Memory impairment. 30. Upper respiratory infection pharyngitis with dry cough. 31. Decreased voice with wheezing. 32. Headaches 33. Hypokalemia-elevated level today 3.2 we will continue supplement . Result Diagram: 11/10/18 0428 11/12/18 0436 Results 24hrs Laboratory Tests Test 11/12/18 04:36 Sodium Level 138 Potassium Level 3.4 L Chloride Level 94 L Carbon Dioxide Level 36 H Anion Gap 8 Blood Urea Nitrogen 34 H Creatinine 1.00 Est Glomerular Filtrat Rate mL/min 57 L Glucose Level 122 Calcium Level 9.2 Phosphorus Level 5.5 H Magnesium Level 2.1 Exam/Review of Systems Exam Vitals Vital Signs Date Temp Pulse Resp B/P (MAP) Pulse Ox O2 O2 Flow FiO2 Time Delivery Rate 11/12/18 80 103/65 06:02 (78) 11/12/18 2.0 05:02 11/11/18 98.3 19 92 20:45 11/11/18 Nasal 20:16 Cannula 11/10/18 27 02:07 Intake and Output 11/11/18 11/11/18 11/12/18 1515:00 23:00 07:00 IntakeIntake Total 600 ml BalanceBalance 600 ml Constitutional: alert, oriented, distress, obese; No well developed, No non-verbal, No frail, No other Psych: anxiety; No no complaints, No nl mood/affect, No confusion, No depression, No suicidal, No other Head: normocephalic, atraumatic Eyes: EOMI, nl lids; No nl conjunctiva, No nl sclera, No PERRL, No icteric, No fundi, disc, No other ENMT: mucosa pink and moist; No nl external ears & nose, No nl lips & teeth, No nl nasal mucosa & septum, No intubated, No tympanic membranes, No other Neck: supple, non-tender, bruits Respiratory: clear to auscultation, normal air movement, diminished breath sounds; No congested cough, No crackles/rales, No intercostal retraction, No labored breathing, No respirations, No tactile fremitus, No wheezing, No other Cardiovascular: regular rate and rhythm, nl pulses, edema; No bruits, No diastolic murmur, No gallop, No irregular rhythm, No jugular venous distention (JVD), No murmurs/extra sounds, No rub, No systolic murmur, No S3, No S4, No other Gastrointestinal: soft, nl liver, spleen, non-tender; No ascites, No bowel sounds, No distended, No firm, No hepatomegaly, No mass, No rebound or guarding, No splenomegaly, No surgical scars, No tender, No other Musculoskeletal: joint tenderness, muscle tone, muscle weakness Extremities: normal pulses, edema; No calf tenderness, No cyanosis, No clubbing, No pitting pedal edema, No palpable cord, No tenderness, No other Neurological: 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, nl mental status, nl speech; No nl strength, No confused, No DTR's symmetric, No focal weakness, No lethargic, No numbness, No reflexes, No unresponsive, No other Results Results 24hrs Laboratory Tests Test 11/12/18 04:36 Sodium Level 138 Potassium Level 3.4 L Chloride Level 94 L Carbon Dioxide Level 36 H Anion Gap 8 Blood Urea Nitrogen 34 H Creatinine 1.00 Est Glomerular Filtrat Rate mL/min 57 L Glucose Level 122 Calcium Level 9.2 Phosphorus Level 5.5 H Magnesium Level 2.1 Medications Medication Current Medications Acetaminophen (Tylenol Tab) 650 mg Q4H PRN PO PAIN LEVEL 1-10/10 Last administered on 10/29/18at 17:15; Admin Dose 650 MG; Start 10/21/18 at 23:30 Anastrozole (Arimidex) 1 mg DAILY PO Last administered on 11/11/18at 08:55; Admin Dose 1 MG; Start 10/22/18 at 09:00 Benazepril HCl (Lotensin) 5 mg DAILY PO Last administered on 10/30/18at 09:27; Admin Dose 5 MG; Start 10/22/18 at 09:00; Status Hold Bisacodyl (Dulcolax Supp) 10 mg Q8 [place] Last administered on 10/31/18 16:42; Admin Dose 10 MG; Start 10/22/18 at 06:00 Carvedilol (Coreg) 3.125 mg BID PO Last administered on 11/11/18 21:03; Admin Dose 3.125 MG; Start 10/22/18 at 09:00 Docusate Sodium (Colace) 100 mg BID PO Last administered on 11/11/18 21:04; Admin Dose 100 MG; Start 10/22/18 at 09:00 Escitalopram Oxalate (Lexapro) 10 mg DAILY PO Last administered on 11/11/18 08:53; Admin Dose 10 MG; Start 10/22/18 at 09:00 Loratadine (Claritin) 10 mg DAILY PO Last administered on 11/11/18 08:53; Admin Dose 10 MG; Start 10/22/18 at 09:00 Magnesium Hydroxide (Milk Of Mag) 30 ml DAILY PO Last administered on 11/11/18 08:53; Admin Dose 30 ML; Start 10/22/18 at 09:00 Oxycodone HCl (Oxycontin) 20 mg Q12 PO Last administered on 11/11/18 21:04; Admin Dose 20 MG; Start 10/22/18 at 09:00 Pantoprazole (Protonix Tab) 40 mg AC BREAKFAST PO Last administered on 11/12/18 06:04; Admin Dose 40 MG; Start 10/22/18 at 07:25 Polyethylene Glycol (Miralax) 17 gm DAILY PO Last administered on 11/11/18 08: 53; Admin Dose 17 GM; Start 10/22/18 at 09:00 Simethicone (Mylicon) 80 mg Q8H PO Last administered on 11/08/18 15:50; Admin Dose 80 MG; Start 10/21/18 at 23:30 Spironolactone (Aldactone) 50 mg DAILY PO Last administered on 11/11/18 08:53; Admin Dose 50 MG; Start 10/22/18 at 09:00 Zolpidem Tartrate (Ambien) 10 mg HS PRN PO INSOMNIA Last administered on 11/11/18 23:03; Admin Dose 5 MG; Start 10/21/18 at 23:30 Morphine Sulfate (morphine) 2 mg Q4H PRN IV SEVERE PAIN LEVEL 7-10 Last administered on 11/12/18 01:15; Admin Dose 2 MG; Start 10/22/18 at 01:30 Phenol (Cepastat Lozenge) 1 lozenge Q1H PRN MT sore throat Last administered on 10/31/18 18:34; Admin Dose 1 LOZENGE; Start 10/27/18 at 21:30 Fluticasone Propionate (Flonase 0.05% Nasal) 1 spray BID NASAL Last administered on 11/10/18 09:25; Admin Dose 1 SPRAY; Start 10/29/18 at 21:00 Budesonide (Pulmicort (Neb)) 0.5 mg BID RESP THERAPY HHN Last administered on 11/11/18 20:16; Admin Dose 0.5 MG; Start 10/30/18 at 09:00 Metolazone (Zaroxolyn) 2.5 mg BID@0530,1730 PO Last administered on 11/12/18 04:43; Admin Dose 2.5 MG; Start 11/01/18 at 05:30 Furosemide (Lasix) 40 mg BID DIURETICS IV Last administered on 11/12/18 06:04; Admin Dose 40 MG; Start 11/01/18 at 18:00 Guaifenesin/ Codeine Phosphate (Robitussin Ac Liquid Cup) 10 ml Q4 PO Last administered on 11/12/18 04:42; Admin Dose 10 ML; Start 11/02/18 at 09:00 Enoxaparin Sodium (Lovenox) 40 mg DAILY SC Last administered on 11/11/18 08:55; Admin Dose 40 MG; Start 11/02/18 at 09:00 Ibuprofen (Motrin) 400 mg Q6H PRN PO MILD PAIN(1-3) OR TEMP>38C; Start 11/07/18 at 12:20 Albuterol/ Ipratropium (Duoneb) 3 ml Q8H RESP THERAPY PRN HHN SHORTNESS OF BREATH; Start 11/10/18 at 20:00 Potassium Chloride (Klor-Con 20) 20 meq BID PO Last administered on 11/11/18 21:03; Admin Dose 20 MEQ; Start 11/11/18 at 09:00 RUSS JEROME MD November 12, 2018 07:30
[2018-11-12] MEDS ORDERED: POTASSIUM CHLORIDE (SR) 20 MEQ TAB PO STA (07:52)
[2018-11-12] MEDS ORDERED: ACETAZOLAMIDE 500 MG INJ IV ONE (08:00)
--- NOTE | 2018-11-12 08:28 | PN ---
DATE: 11/12/2018 SUBJECTIVE: The patient is stable. No events overnight. The patient's swelling is improving. OBJECTIVE: VITAL SIGNS: Blood pressure is 103/65, respirations 19, pulse 89, temperature 98.3. HEENT: Head is normocephalic. NECK: Supple. HEART: Regular rate. LUNGS: Show diminished breath sounds at the base. ABDOMEN: Soft, nontender to palpation without rebound or guarding. EXTREMITIES: Negative for clubbing, cyanosis. Trace edema. DERMATOLOGIC: No rashes. MUSCULOSKELETAL: No joint effusion. NEUROLOGIC: No change in exam. MEDICATIONS: Reviewed. LABORATORY DATA: Reviewed. ASSESSMENT AND PLAN: 1. Volume overload. Etiology is multifactorial secondary to diastolic heart failure, questionable p ortal hypertension due to metastatic disease, questionable lymphangitic spread of cancer. The patien t is near euvolemic status. Continue diuretic regimen with Aldactone, metolazone and Lasix. Monitor electrolytes and renal function closely. 2. Alkalosis. Etiology is secondary to hypokalemia, diuretic therapy. We will continue to correct underlying hypokalemia and monitor closely. The patient may require a course of Diamox. 3. Hypokalemia. Continue to monitor and replete. Continue Aldactone. 4. Nonoliguric acute kidney injury, etiology is secondary to hemodynamics. Renal function is improv ing. Continue to monitor. 5. Mineral bone disorder, monitor calcium and phosphorus levels. 6. Breast cancer with metastasis to the liver and spine. Continue to monitor. 7. Hip fracture, status post arthroplasty. 8. Pleural effusion, status post thoracentesis. 9. Chronic pain syndrome. Continue current pain regimen. 10. Status post bronchitis. Dictated By: ANDRÉS YO/NTS Conf#: [id number] DID#: [id number] CC: RUSS JEROME MD;*EndCC*
[2018-11-12 08:32] VITALS: BP 112/68; PULSE 81; RESP 18
[2018-11-12] MEDS: POLYETHYLENE GLYCOL 17 GM PACKET PO SCH (09:00)
[2018-11-12] MEDS: MAGNESIUM HYDROXIDE 30ML CUP PO SCH (09:00)
[2018-11-12] MEDS: FLUTICASONE 0.05% 16 GM NAS SPRAY NASAL SCH ×2 (09:00→21:00)
[2018-11-12] MEDS: BUDESONIDE (NEB) 0.5MG/2ML AMP HHN SCH ×2 (09:08→21:54)
--- NOTE | 2018-11-12 09:13 | CONS ---
Consultation Date/Type/Reason Admit Date/Time October 21, 2018 at 17:39 Initial Consult Date 10/21/18 Type of Consult Cardiology Requesting Provider: RUSS JEROME MD Date/Time of Note DATE: 11/12/18 TIME: 09:12 24 HR Interval Summary Free Text/Dictation VS stable Exam/Review of Systems Vital Signs Vitals Vital Signs Date Temp Pulse Resp B/P (MAP) Pulse Ox O2 O2 Flow FiO2 Time Delivery Rate 11/12/18 86 20 96 Nasal 2.0 09:08 Cannula 11/12/18 98.0 112/68 08:32 (83) 11/10/18 02:07 Intake and Output 11/11/18 11/11/18 11/12/18 1515:00 23:00 07:00 IntakeIntake Total 600 ml BalanceBalance 600 ml Labs Result Diagram: 11/10/18 0428 11/12/18 0436 Results 24hrs Laboratory Tests Test 11/12/18 04:36 Sodium Level 138 Potassium Level 3.4 L Chloride Level 94 L Carbon Dioxide Level 36 H Anion Gap 8 Blood Urea Nitrogen 34 H Creatinine 1.00 Est Glomerular Filtrat Rate mL/min 57 L Glucose Level 122 Calcium Level 9.2 Phosphorus Level 5.5 H Magnesium Level 2.1 Medications Medications Current Medications Acetaminophen (Tylenol Tab) 650 mg Q4H PRN PO PAIN LEVEL 1-10/10 Last administered on 10/29/18at 17:15; Admin Dose 650 MG; Start 10/21/18 at 23:30 Anastrozole (Arimidex) 1 mg DAILY PO Last administered on 11/11/18at 08:55; Admin Dose 1 MG; Start 10/22/18 at 09:00 Benazepril HCl (Lotensin) 5 mg DAILY PO Last administered on 10/30/18at 09:27; Admin Dose 5 MG; Start 10/22/18 at 09:00; Status Hold Bisacodyl (Dulcolax Supp) 10 mg Q8 [place] Last administered on 10/31/18at 16:42; Admin Dose 10 MG; Start 10/22/18 at 06:00 Carvedilol (Coreg) 3.125 mg BID PO Last administered on 11/11/18at 21:03; Admin Dose 3.125 MG; Start 10/22/18 at 09:00 Docusate Sodium (Colace) 100 mg BID PO Last administered on 11/11/18 21:04; Admin Dose 100 MG; Start 10/22/18 at 09:00 Escitalopram Oxalate (Lexapro) 10 mg DAILY PO Last administered on 11/11/18 08:53; Admin Dose 10 MG; Start 10/22/18 at 09:00 Loratadine (Claritin) 10 mg DAILY PO Last administered on 11/11/18 08:53; Admin Dose 10 MG; Start 10/22/18 at 09:00 Magnesium Hydroxide (Milk Of Mag) 30 ml DAILY PO Last administered on 11/11/18 08:53; Admin Dose 30 ML; Start 10/22/18 at 09:00 Oxycodone HCl (Oxycontin) 20 mg Q12 PO Last administered on 11/11/18 21:04; Admin Dose 20 MG; Start 10/22/18 at 09:00 Pantoprazole (Protonix Tab) 40 mg AC BREAKFAST PO Last administered on 11/12/18 06:04; Admin Dose 40 MG; Start 10/22/18 at 07:25 Polyethylene Glycol (Miralax) 17 gm DAILY PO Last administered on 11/11/18 08:53; Admin Dose 17 GM; Start 10/22/18 at 09:00 Simethicone (Mylicon) 80 mg Q8H PO Last administered on 11/08/18 15:50; Admin Dose 80 MG; Start 10/21/18 at 23:30 Spironolactone (Aldactone) 50 mg DAILY PO Last administered on 11/11/18 08:53; Admin Dose 50 MG; Start 10/22/18 at 09:00 Zolpidem Tartrate (Ambien) 10 mg HS PRN PO INSOMNIA Last administered on 11/11/18 23:03; Admin Dose 5 MG; Start 10/21/18 at 23:30 Morphine Sulfate (morphine) 2 mg Q4H PRN IV SEVERE PAIN LEVEL 7-10 Last administered on 11/12/18 01:15; Admin Dose 2 MG; Start 10/22/18 at 01:30 Phenol (Cepastat Lozenge) 1 lozenge Q1H PRN MT sore throat Last administered on 10/31/18 18:34; Admin Dose 1 LOZENGE; Start 10/27/18 at 21:30 Fluticasone Propionate (Flonase 0.05% Nasal) 1 spray BID NASAL Last administered on 11/10/18 09:25; Admin Dose 1 SPRAY; Start 10/29/18 at 21:00 Budesonide (Pulmicort (Neb)) 0.5 mg BID RESP THERAPY HHN Last administered on 11/12/18 09:08; Admin Dose 0.5 MG; Start 10/30/18 at 09:00 Metolazone (Zaroxolyn) 2.5 mg BID@0530,1730 PO Last administered on 11/12/18 04:43; Admin Dose 2.5 MG; Start 11/01/18 at 05:30 Furosemide (Lasix) 40 mg BID DIURETICS IV Last administered on 11/12/18 06:04; Admin Dose 40 MG; Start 11/01/18 at 18:00; Status Hold Guaifenesin/ Codeine Phosphate (Robitussin Ac Liquid Cup) 10 ml Q4 PO Last administered on 11/12/18 04:42; Admin Dose 10 ML; Start 11/02/18 at 09:00 Enoxaparin Sodium (Lovenox) 40 mg DAILY SC Last administered on 11/11/18 08:55; Admin Dose 40 MG; Start 11/02/18 at 09:00 Ibuprofen (Motrin) 400 mg Q6H PRN PO MILD PAIN(1-3) OR TEMP>38C; Start 11/07/18 at 12:20 Albuterol/ Ipratropium (Duoneb) 3 ml Q8H RESP THERAPY PRN HHN SHORTNESS OF BREATH; Start 11/10/18 at 20:00 Potassium Chloride (Klor-Con 20) 20 meq BID PO Last administered on 11/11/18 21:03; Admin Dose 20 MEQ; Start 11/11/18 at 09:00 EMILY NELSON MD November 12, 2018 09:13
[2018-11-12] MEDS: oxyCODONE (CR) 20 MG TAB [oxyCONTIN] PO SCH ×2 (09:21→21:08)
[2018-11-12] MEDS: DOCUSATE SODIUM 100 MG CAP PO SCH ×2 (09:21→21:07)
[2018-11-12] MEDS: ESCITALOPRAM 10 MG TAB PO SCH (09:21)
[2018-11-12] MEDS: LORATADINE 10 MG TAB PO SCH (09:21)
[2018-11-12] MEDS: SPIRONOLACTONE 50 MG TAB PO SCH (09:22)
[2018-11-12] MEDS: ENOXAPARIN 40 MG/0.4 ML SYG SC SCH (09:24)
[2018-11-12] MEDS: ANASTROZOLE 1 MG TAB PO SCH (09:24)
[2018-11-12] MEDS: POTASSIUM CHLORIDE (SR) 20 MEQ TAB PO SCH ×2 (09:30→21:07)
--- NOTE | 2018-11-12 14:51 | PN ---
Date/Time of Note Date/Time of Note DATE: 11/12/18 TIME: 14:48 Assessment/Plan VTE Prophylaxis Risk score (from Ns)>0 risk: 9 SCD applied (from Ns): Yes SCD contraindicated: other (on.) Pharmacological prophylaxis: LMWH Lines/Catheters IV [facility]ter Type [facility]from [facility] port-a-cath Central line still needed: Yes Urinary Cath still in place: No Reason Cath still needed: urinary retention Assessment/Plan Hospital Course Rrecurrent thoracentesis from left pleural cavity.Bronchitis got treated slowly. CHF improved but not totally gone. Continue current chemotherapy bronchodilator therapy correction of fluid his electrolytes and follow the algorithm for a total synthesis planning. Assessment/Plan 1. PRIMARY ADENOCARCINOMA of the left breast. MULTIPLE BONY METS, PULMONARY METS;LIVER METS CHEMO ON HOLD; PT HAS A VERY GOOD RESPONSE TO CHEMO AND AI 2. Severe pain in the interscapular and lumbar sacral area most probably metastatic lesion possible femoral fracture. pathologic fracture of T9 with 60% of loss of height. Neurosurgical f/u. 3. Obesity. 4. Weight loss 60 pounds during the last 2 years by diet 5. PMS. 6. Myopia. 7. Anemia chronic disease with a drop of her hematocrit to 27; Latest results 28. Will recheck tomorrow;Leukopenia.Thrombocytopenia; 8. Anxiety disorder. Claustrophobia. Increase Ativan to 1 mg every 8 as needed at Lexapro 10 mg daily. 9. Posttraumatic stress disorder. 10. Pain in the left forearm with a history of fracture of ulna and radius. 11. Tachycardia-resolved 12. Hypoxemia at night marginal improved after 2 L of nasal cannula oxygen. 13. Deconditioning 14. 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 MRI: 09/28/18:diffuse osseous metastatic disease with multiple pathologic compression fractures at least involving the T4, T5, T7, T9 and T11 levels. There is likely mild cortical breakthrough at several levels resulting in mild central canal narrowing. No gross evidence of cord compression is seen.. 15. Pain syndrome. Today the most painful zone is in the right hip area. 16. Hyponatremia-corrected; today and hold Aldactone today. 17. Leucopenia-improved. 18. Neutropenia with occasional fever and chills. Last chemotherapy 5 days ago. 19. Hypoalbuminemia. 20.Right sided cp after catheter insertion and correction less discomfort. 21. Decreased edema both lower extremities with [id number] with Pleural and Pericardial effusion. 22. pain syndrome 23.bilateral pleural effusions ; s/p recurrent left thoracentesis Reaccumulation of the pleural fluid. 24. Systolic over diastolic congestive heart failure with a right more than left lower extremity swelling with no DVT in latest venous Doppler. 25. Swelling of the left forearm-persist. Cellulitis of the left forearm with decreased edema anteriorly.-Today it is less edematous 26. Pathologic fracture of the right hip;s/p hemiarthroplasty of right hip . 27. Dizziness 28. Chills. 29. Memory impairment. 30. Upper respiratory infection pharyngitis with dry cough. 31. Decreased voice with wheezing. 32. Headaches 33. Hypokalemia-elevated level today 3.2 we will continue supplement . Result Diagram: 11/10/18 0428 11/12/18 0436 Results 24hrs Laboratory Tests Test 11/12/18 04:36 Sodium Level 138 Potassium Level 3.4 L Chloride Level 94 L Carbon Dioxide Level 36 H Anion Gap 8 Blood Urea Nitrogen 34 H Creatinine 1.00 Est Glomerular Filtrat Rate mL/min 57 L Glucose Level 122 Calcium Level 9.2 Phosphorus Level 5.5 H Magnesium Level 2.1 Subjective 24 Hr Interval Summary Free Text/Dictation Increased shortness of breath. Deformed of the fractured nails. Decreased pain decreased cough. Constitutional: poor po; No no complaints, No improved, No chills, No diaphoresis, No disoriented, No febrile, No requiring IVF, No requiring O2, No other Eyes: No no complaints, No pain, No discharge, No redness, No visual change, No other ENT: congestion, dysphagia; No no complaints, No bleeding, No pain, No discharge, No sore throat, No other Respiratory: cough; No no complaints, No pain, No pleuritic pain, No shortness of breath, No sputum, No wheezing, No other Cardiovascular: edema, lightheadedness, palpitations; No no complaints, No chest pain, No orthopenea, No paroxysmal nocturnal dyspnea, No other Gastrointestinal: constipation; No no complaints, No pain, No blood, No decreased appetite, No diarrhea, No flatus, No nausea, No passing stool, No vomiting, No other Genitourinary: dysuria, discharge; No no complaints, No bleeding, No flank pain, No hematuria, No other Musculoskeletal: back pain, bone/joint pain; No no complaints, No neck pain, No restricted range of motion, No swelling, No other Skin: pruritis; No no complaints, No bruising, No erythema, No laceration, No rash, No skin lesions, No other Neurologic: dizziness, headache; No no complaints, No confusion, No focal-weakness, No syncope, No seizure, No other Psychological: anxiety, confusion, depression; No no complaints, No nl mood/affect, No suicidal, No other Exam/Review of Systems Exam Vitals Vital Signs Date Temp Pulse Resp B/P (MAP) Pulse Ox O2 O2 Flow FiO2 Time Delivery Rate 11/12/18 86 20 96 Nasal 2.0 09:08 Cannula 11/12/18 98.0 112/68 08:32 (83) 11/10/18 02:07 Intake and Output 11/11/18 11/11/18 11/12/18 1414:59 22:59 06:59 IntakeIntake Total 600 ml BalanceBalance 600 ml Constitutional: alert, oriented, well developed, distress, frail, obese; No non-verbal, No other Psych: anxiety, depression; No no complaints, No nl mood/affect, No confusion, No suicidal, No other Head: normocephalic, atraumatic; No lacerations, No hematomas, No other Eyes: nl conjunctiva, EOMI, nl lids, PERRL; No nl sclera, No icteric, No fundi, disc, No other ENMT: No nl external ears & nose, No nl lips & teeth, No nl nasal mucosa & septum, No mucosa pink and moist, No intubated, No tympanic membranes, No other Neck: supple; No non-tender, No jvd, No bruits, No masses, No thyromegaly, No nuchal rigidity, No other Respiratory: diminished breath sounds (Left chest posteriorly lower half.); No clear to auscultation, No normal air movement, No congested cough, No crackles/rales, No intercostal retraction, No labored breathing, No respirations, No tactile fremitus, No wheezing, No other Cardiovascular: regular rate and rhythm, nl pulses, edema; No bruits, No diastolic murmur, No gallop, No irregular rhythm, No jugular venous distention (JVD), No murmurs/extra sounds, No rub, No systolic murmur, No S3, No S4, No other Gastrointestinal: soft, bowel sounds; No nl liver, spleen, No non-tender, No ascites, No distended, No firm, No hepatomegaly, No mass, No rebound or guarding, No splenomegaly, No surgical scars, No tender, No other Genitourinary - Female: nl adnexae, nl external genitalia; No CMT, No CVA tenderness, No uterus, No other Musculoskeletal: joint tenderness; No nl extremities to inspection, No nl gait and stance, No muscle tone, No muscle weakness, No range of motion, No spine non-tender, No swelling, No other Extremities: normal pulses; No calf tenderness, No cyanosis, No clubbing, No edema, No pitting pedal felton a, No palpable cord, No tenderness, No other Neurological: [employer]CIAL [employer] 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; No nl mental status, No nl speech, No nl strength, No confused, No DTR's symmetric, No focal weakness, No lethargic, No numbness, No reflexes, No unresponsive, No other Skin: nl turgor; No rash or lesions, No diaphoresis, No ecchymosis, No laceration, No puncture, No other Results Results 24hrs Laboratory Tests Test 11/12/18 04:36 Sodium Level 138 Potassium Level 3.4 L Chloride Level 94 L Carbon Dioxide Level 36 H Anion Gap 8 Blood Urea Nitrogen 34 H Creatinine 1.00 Est Glomerular Filtrat Rate mL/min 57 L Glucose Level 122 Calcium Level 9.2 Phosphorus Level 5.5 H Magnesium Level 2.1 Medications Medication Current Medications Acetaminophen (Tylenol Tab) 650 mg Q4H PRN PO PAIN LEVEL 1-10/10 Last administered on 10/29/18at 17:15; Admin Dose 650 MG; Start 10/21/18 at 23:30 Anastrozole (Arimidex) 1 mg DAILY PO Last administered on 11/12/18at 09:24; Admin Dose 1 MG; Start 10/22/18 at 09:00 Benazepril HCl (Lotensin) 5 mg DAILY PO Last administered on 10/30/18at 09:27; Admin Dose 5 MG; Start 10/22/18 at 09:00; Status Hold Bisacodyl (Dulcolax Supp) 10 mg Q8 [place] Last administered on 10/31/18 16:42; Admin Dose 10 MG; Start 10/22/18 at 06:00 Carvedilol (Coreg) 3.125 mg BID PO Last administered on 11/12/18 09:32; Admin Dose 3.125 MG; Start 10/22/18 at 09:00 Docusate Sodium (Colace) 100 mg BID PO Last administered on 11/12/18 09:21; Admin Dose 100 MG; Start 10/22/18 at 09:00 Escitalopram Oxalate (Lexapro) 10 mg DAILY PO Last administered on 11/12/18 09:21; Admin Dose 10 MG; Start 10/22/18 at 09:00 Loratadine (Claritin) 10 mg DAILY PO Last administered on 11/12/18 09:21; Admin Dose 10 MG; Start 10/22/18 at 09:00 Magnesium Hydroxide (Milk Of Mag) 30 ml DAILY PO Last administered on 11/11/18 08:53; Admin Dose 30 ML; Start 10/22/18 at 09:00 Oxycodone HCl (Oxycontin) 20 mg Q12 PO Last administered on 11/12/18 09:21; Admin Dose 20 MG; Start 10/22/18 at 09:00 Pantoprazole (Protonix Tab) 40 mg AC BREAKFAST PO Last administered on 11/12/18 06:04; Admin Dose 40 MG; Start 10/22/18 at 07:25 Polyethylene Glycol (Miralax) 17 gm DAILY PO Last administered on 11/11/18 08:53; Admin Dose 17 GM; Start 10/22/18 at 09:00 Simethicone (Mylicon) 80 mg Q8H PO Last administered on 11/08/18 15:50; Admin Dose 80 MG; Start 10/21/18 at 23:30 Spironolactone (Aldactone) 50 mg DAILY PO Last administered on 11/12/18 09:22; Admin Dose 50 MG; Start 10/22/18 at 09:00 Zolpidem Tartrate (Ambien) 10 mg HS PRN PO INSOMNIA Last administered on 11/11/18 23:03; Admin Dose 5 MG; Start 10/21/18 at 23:30 Morphine Sulfate (morphine) 2 mg Q4H PRN IV SEVERE PAIN LEVEL 7-10 Last administered on 11/12/18 01:15; Admin Dose 2 MG; Start 10/22/18 at 01:30 Phenol (Cepastat Lozenge) 1 lozenge Q1H PRN MT sore throat Last administered on 10/31/18 18:34; Admin Dose 1 LOZENGE; Start 10/27/18 at 21:30 Fluticasone Propionate (Flonase 0.05% Nasal) 1 spray BID NASAL Last administered on 11/10/18 09:25; Admin Dose 1 SPRAY; Start 10/29/18 at 21:00 Budesonide (Pulmicort (Neb)) 0.5 mg BID RESP THERAPY HHN Last administered on 11/12/18 09:08; Admin Dose 0.5 MG; Start 10/30/18 at 09:00 Metolazone (Zaroxolyn) 2.5 mg BID@0530,1730 PO Last administered on 11/12/18 04:43; Admin Dose 2.5 MG; Start 11/01/18 at 05:30 Furosemide (Lasix) 40 mg BID DIURETICS IV Last administered on 11/12/18 06:04; Admin Dose 40 MG; Start 11/01/18 at 18:00; Status Hold Guaifenesin/ Codeine Phosphate (Robitussin Ac Liquid Cup) 10 ml Q4 PO Last administered on 11/12/18 14:05; Admin Dose 10 ML; Start 11/02/18 at 09:00 Enoxaparin Sodium (Lovenox) 40 mg DAILY SC Last administered on 11/12/18 09:24; Admin Dose 40 MG; Start 11/02/18 at 09:00 Ibuprofen (Motrin) 400 mg Q6H PRN PO MILD PAIN(1-3) OR TEMP>38C; Start 11/07/18 at 12:20 Albuterol/ Ipratropium (Duoneb) 3 ml Q8H RESP THERAPY PRN HHN SHORTNESS OF BREATH; Start 11/10/18 at 20:00 Potassium Chloride (Klor-Con 20) 20 meq BID PO Last administered on 11/12/18 09:30; Admin Dose 20 MEQ; Start 11/11/18 at 09:00 RUSS JEROME MD November 12, 2018 14:51
[2018-11-12 15:23] VITALS: BP 89/60; PULSE 75; RESP 18
[2018-11-12 20:36] VITALS: BP 104/58; PULSE 83; RESP 18
--- NOTE | 2018-11-12 23:42 | CONS ---
Assessment/Plan Assessment/Plan Hospital Course (Demo Recall) METASTATIC BREAST CANCER WITH PRIMARY ADENOCARCINOMA IN the left breast. MULTIPLE BONY METS, PULMONARY METS, LIVER METS CHEMO ON HOLD PT HAS A VERY GOOD RESPONSE TO CHEMO AND AI CONT AI FOR NOW CT ABD FOR RESTAGING 08.27.18- noted , stable Leukopenia- post chemo, FLUCTUATING WITH RECENT WORSENING- post NEUPOGEN monitor closely post Neutropenia with occasional fever and chills. - resolved Anemia chronic disease SOB PLEURAL EFFUSIONS, NEG CYTOLOGY POST thoracentesis Fluid overload diuretic cardiology F-UP Severe pain in the interscapular and lumbar sacral area most probably metastatic lesion possible femoral fracture. pathologic fracture of T9 with 60% of loss of height. Bony pain with multiple bony mets post XRT d/w dr Ocampo Obesity. Weight loss 60 pounds during the last 2 years COUGH, Upper respiratory infection pharyngitis with dry cough. POST ATB PMS. Myopia. Anxiety disorder. Claustrophobia. Posttraumatic stress disorder. Pain in the left forearm with a history of fracture of ulna and radius. Tachycardia Hypoxemia at night marginal improved after 2 L of nasal cannula oxygen. Deconditioning Pain syndrome. Today the most painful zone is in the right hip area. X-ray did not show any fractures. Hyponatremia- resolved Hypoalbuminemia Right sided cp after catheter insertion and correction less discomfort. Decreased edema both lower extremities with hypotension-improving Swelling of the left forearm-persist. Consultation Date/Type/Reason Admit Date/Time October 21, 2018 at 17:39 Initial Consult Date 10/21/18 Type of Consult [facility] Requesting Provider: RUSS JEROME MD Date/Time of Note DATE: 11/12/18 TIME: 23:41 24 HR Interval Summary Free Text/Dictation STABLE NAD Exam/Review of Systems Exam Vitals Vital Signs Date Temp Pulse Resp B/P (MAP) Pulse Ox O2 O2 Flow FiO2 Time Delivery Rate 11/12/18 98.4 83 18 104/58 90 20:36 (73) 11/12/18 2.0 17:55 11/12/18 Room Air 15:23 11/10/18 27 02:07 Intake and Output 11/11/18 11/11/18 11/12/18 1515:00 23:00 07:00 IntakeIntake Total 600 ml BalanceBalance 600 ml Exam HEENT: Head is normocephalic. NECK: Supple. HEART: Regular rate. LUNGS: Show diminished breath sounds at the base., COARSE, FEW RHONCHI ABDOMEN: Soft, nontender to palpation without rebound or guarding. EXTREMITIES: Negative for clubbing, cyanosis. Positive edema, improving. DERMATOLOGIC: No rashes. MUSCULOSKELETAL: No joint effusion. NEUROLOGIC: No change in exam. Results Result Diagram: 11/10/18 0428 11/12/18 0436 Results 24hrs Laboratory Tests Test 11/12/18 04:36 Sodium Level 138 Potassium Level 3.4 L Chloride Level 94 L Carbon Dioxide Level 36 H Anion Gap 8 Blood Urea Nitrogen 34 H Creatinine 1.00 Est Glomerular Filtrat Rate mL/min 57 L Glucose Level 122 Calcium Level 9.2 Phosphorus Level 5.5 H Magnesium Level 2.1 Medications Medication Current Medications Acetaminophen (Tylenol Tab) 650 mg Q4H PRN PO PAIN LEVEL 1-1010 Last administered on 10/29/18 17:15; Admin Dose 650 MG; Start 10/21/18 at 23:30 Anastrozole (Arimidex) 1 mg DAILY PO Last administered on 11/12/18 09:24; Admin Dose 1 MG; Start 10/22/18 at 09:00 Benazepril HCl (Lotensin) 5 mg DAILY PO Last administered on 10/30/18 09:27; Admin Dose 5 MG; Start 10/22/18 at 09:00; Status Hold Bisacodyl (Dulcolax Supp) 10 mg Q8 [place] Last administered on 10/31/18 16:42; Admin Dose 10 MG; Start 10/22/18 at 06:00 Carvedilol (Coreg) 3.125 mg BID PO Last administered on 11/12/18 21:07; Admin Dose 3.125 MG; Start 10/22/18 at 09:00 Docusate Sodium (Colace) 100 mg BID PO Last administered on 11/12/18 21:07; Admin Dose 100 MG; Start 10/22/18 at 09:00 Escitalopram Oxalate (Lexapro) 10 mg DAILY PO Last administered on 11/12/18 09:21; Admin Dose 10 MG; Start 10/22/18 at 09:00 Loratadine (Claritin) 10 mg DAILY PO Last administered on 11/12/18 09:21; Admin Dose 10 MG; Start 10/22/18 at 09:00 Magnesium Hydroxide (Milk Of Mag) 30 ml DAILY PO Last administered on 11/11/18 08:53; Admin Dose 30 ML; Start 10/22/18 at 09:00 Oxycodone HCl (Oxycontin) 20 mg Q12 PO Last administered on 11/12/18 21:08; A dmin Dose 20 MG; Start 10/22/18 at 09:00 Pantoprazole (Protonix Tab) 40 mg AC BREAKFAST PO Last administered on 11/12/18 06:04; Admin Dose 40 MG; Start 10/22/18 at 07:25 Polyethylene Glycol (Miralax) 17 gm DAILY PO Last administered on 11/11/18 08:53; Admin Dose 17 GM; Start 10/22/18 at 09:00 Simethicone (Mylicon) 80 mg Q8H PO Last administered on 11/08/18 15:50; Admin Dose 80 MG; Start 10/21/18 at 23:30 Spironolactone (Aldactone) 50 mg DAILY PO Last administered on 11/12/18 09:22; Admin Dose 50 MG; Start 10/22/18 at 09:00 Zolpidem Tartrate (Ambien) 10 mg HS PRN PO INSOMNIA Last administered on 11/11/18 23:03; Admin Dose 5 MG; Start 10/21/18 at 23:30 Morphine Sulfate (morphine) 2 mg Q4H PRN IV SEVERE PAIN LEVEL 7-10 Last administered on 11/12/18 01:15; Admin Dose 2 MG; Start 10/22/18 at 01:30 Phenol (Cepastat Lozenge) 1 lozenge Q1H PRN MT sore throat Last administered on 10/31/18 18:34; Admin Dose 1 LOZENGE; Start 10/27/18 at 21:30 Fluticasone Propionate (Flonase 0.05% Nasal) 1 spray BID NASAL Last administered on 11/10/18 09:25; Admin Dose 1 SPRAY; Start 10/29/18 at 21:00 Budesonide (Pulmicort (Neb)) 0.5 mg BID RESP THERAPY HHN Last administered on 11/12/18 21:54; Admin Dose 0.5 MG; Start 10/30/18 at 09:00 Metolazone (Zaroxolyn) 2.5 mg BID@0530,1730 PO Last administered on 11/12/18 18:31; Admin Dose 2.5 MG; Start 11/01/18 at 05:30 Furosemide (Lasix) 40 mg BID DIURETICS IV Last administered on 11/12/18 06:04; Admin Dose 40 MG; Start 11/01/18 at 18:00; Status Hold Guaifenesin/ Codeine Phosphate (Robitussin Ac Liquid Cup) 10 ml Q4 PO Last administered on 11/12/18 21:07; Admin Dose 10 ML; Start 11/02/18 at 09:00 Enoxaparin Sodium (Lovenox) 40 mg DAILY SC Last administered on 11/12/18 09:24; Admin Dose 40 MG; Start 11/02/18 at 09:00 Ibuprofen (Motrin) 400 mg Q6H PRN PO MILD PAIN(1-3) OR TEMP>38C; Start 11/07/18 at 12:20 Albuterol/ Ipratropium (Duoneb) 3 ml Q8H RESP THERAPY PRN HHN SHORTNESS OF BREATH; Start 11/10/18 at 20:00 Potassium Chloride (Klor-Con 20) 20 meq BID PO Last administered on 11/12/18 21:07; Admin Dose 20 MEQ; Start 11/11/18 at 09:00 DES DUNAWAY MD November 12, 2018 23:42
[2018-11-13] MEDS: GUAIFENESIN/CODEINE 5ML CUP PO SCH ×6 (00:26→21:29)
[2018-11-13 04:00] VITALS: BP 130/80; PULSE 86; RESP 16
[2018-11-13] MEDS: METOLAZONE 2.5 MG TAB PO SCH ×2 (05:47→17:55)
[2018-11-13] MEDS: PANTOPRAZOLE (EC) 40 MG TAB PO SCH (05:47)
[2018-11-13] MEDS: BISACODYL 10 MG SUPP PR SCH ×3 (05:49→22:00)
[2018-11-13] MEDS ORDERED: POTASSIUM CHLORIDE (SR) 20 MEQ TAB PO STA (07:44)
[2018-11-13] MEDS ORDERED: ACETAZOLAMIDE 500 MG INJ IV ONE (08:00)
[2018-11-13 08:21] VITALS: BP 124/77; PULSE 76; RESP 19
[2018-11-13] MEDS: BUDESONIDE (NEB) 0.5MG/2ML AMP HHN SCH ×2 (08:35→21:08)
[2018-11-13] MEDS: DOCUSATE SODIUM 100 MG CAP PO SCH ×2 (08:56→21:26)
[2018-11-13] MEDS: POTASSIUM CHLORIDE (SR) 20 MEQ TAB PO SCH ×2 (08:57→21:26)
[2018-11-13] MEDS: LORATADINE 10 MG TAB PO SCH (08:57)
[2018-11-13] MEDS: ESCITALOPRAM 10 MG TAB PO SCH (08:57)
[2018-11-13] MEDS: SPIRONOLACTONE 50 MG TAB PO SCH (08:57)
[2018-11-13] MEDS: MAGNESIUM HYDROXIDE 30ML CUP PO SCH (08:59)
[2018-11-13] MEDS: oxyCODONE (CR) 20 MG TAB [oxyCONTIN] PO SCH ×2 (08:59→21:25)
[2018-11-13] MEDS: POLYETHYLENE GLYCOL 17 GM PACKET PO SCH (08:59)
[2018-11-13] MEDS: FLUTICASONE 0.05% 16 GM NAS SPRAY NASAL SCH ×2 (09:00→21:27)
[2018-11-13] MEDS: ENOXAPARIN 40 MG/0.4 ML SYG SC SCH (09:01)
[2018-11-13] MEDS: ANASTROZOLE 1 MG TAB PO SCH (09:01)
--- NOTE | 2018-11-13 09:06 | PN ---
DATE: 11/13/2018 SUBJECTIVE: The patient is stable, no events overnight. No fevers, chills, nausea or vomiting. OBJECTIVE: VITAL SIGNS: Blood pressure is 130/80, respirations 16, pulse 86, temperature 98.0. HEENT: Head is normocephalic. NECK: Supple. HEART: Regular rate. LUNGS: Show diminished breath sounds at the base. ABDOMEN: Soft, nontender to palpation. No rebound or guarding. EXTREMITIES: Negative for clubbing, cyanosis, positive edema. DERMATOLOGIC: No rashes. MUSCULOSKELETAL: No joint effusion. NEUROLOGIC: No change in exam. MEDICATIONS: Reviewed. LABORATORY DATA: Reviewed. ASSESSMENT AND PLAN: 1. Volume overload. Etiology is secondary to diastolic heart failure, questionable portal hypertens ion due to metastatic disease, questionable lymphangitic spread of cancer. The patient is nearing eu volemic status. Continue current medical management. Continue diuretic regimen Aldactone and metola zone. The patient is currently on Diamox due to alkalosis and alkalemia. Continue to monitor electr olytes and renal function closely. 2. Metabolic alkalemia. Etiology is secondary to hypokalemia and diuretic therapy. We will continu e Diamox and monitor closely. 3. Hypokalemia. We will continue to monitor and replete. 4. Nonoliguric acute kidney injury. Etiology is secondary to hemodynamics. Renal function is fluct uating. Continue to monitor. 5. Breast cancer with metastasis to liver and spine. Continue to monitor. 6. Hip fracture, status post arthroplasty. 7. Pleural effusion, status post thoracentesis. 8. Chronic pain syndrome. 9. Status post bronchitis. Dictated By: ANDRÉS YO/KEANU Conf#: [id number] DID#: [id number] CC: RUSS JEROME MD;*EndCC*
[2018-11-13 14:29] VITALS: BP 103/59; PULSE 85; RESP 18
[2018-11-13 19:08] VITALS: BP 100/61; PULSE 82; RESP 18
--- NOTE | 2018-11-13 20:23 | CONS ---
Assessment/Plan Assessment/Plan Hospital Course (Demo Recall) IMPRESSION: 1. Congestive heart failure exacerbation would be diastolic, acute on chronic by most recent echo.-now s/p echo this admit with EF 60/small effusion 2. Abnormal electrocardiogram with low voltage, rule out pericardial effusion. 3. Hypertension-currently borderline hypotension 4. Metastatic breast carcinoma. 5. History of pathologic fractures of the leg, status post open reduction and internal fixation. 6. Anemia. 7. Increased BNP consistent with patient's congestive heart failure. 8. Pericardial effusion-small by echo 9. Edema-LE venous UTZneg for DVT 10. Hypokalemia-s/p repletion today/on aldactone Recc: -On med-surg -Now resumed on lasix with metolazone and aldactone with overall significantly iumproved volume status and resolution of LLE edema -Continue current coreg as tolerated only and continue to hold benazepril at this time and follow BP closely -follow K clsoely s/p repletion today and on aldactone -D/C planning-awaiting placement Consultation Date/Type/Reason Admit Date/Time October 21, 2018 at 17:39 Initial Consult Date 10/21/18 Type of Consult Cardiology Reason for Consultation CHF Requesting Provider: RUSS JEROME MD Date/Time of Note DATE: 11/13/18 TIME: 20:22 Exam/Review of Systems Vital Signs Vitals Vital Signs Date Temp Pulse Resp B/P (MAP) Pulse Ox O2 O2 Flow FiO2 Time Delivery Rate 11/13/18 98.4 82 18 100/61 92 19:08 (74) 11/13/18 Room Air 14:29 11/13/18 21 08:36 11/13/18 2.0 08:00 Intake and Output 11/12/18 11/12/18 11/13/18 1515:00 23:00 07:00 IntakeIntake Total 600 ml 240 ml BalanceBalance 600 ml 240 ml Exam Exam Review of Systems: CONSTITUTIONAL: No fevers, chills. PULMONARY: No sob CARDIOVASCULAR: No chest pain/palpitations GASTROINTESTINAL: No nausea/vomiting. GENITOURINARY: No hematuria/dysuria. MUSCULOSKELETAL: No myagias/arthalgias. PSYCHIATRIC: The patient denies depression. NEUROLOGIC: No weakness Constitutional: alert Psych: no complaints Head: normocephalic ENMT: mucosa pink and moist Neck: supple, jvd (9 cm water) Respiratory: diminished breath sounds Cardiovascular: regular rate and rhythm Gastrointestinal: soft, non-tender Musculoskeletal: muscle tone (normal) Extremities: edema (none) Neurological: other (No focal deficits) Labs Result Diagram: 11/10/18 0428 11/13/18 0435 Results 24hrs Laboratory Tests Test 11/13/18 04:35 Sodium Level 137 Potassium Level 3.2 L Chloride Level 96 L Carbon Dioxide Level 32 H Anion Gap 9 Blood Urea Nitrogen 33 H Creatinine 1.03 H Est Glomerular Filtrat Rate mL/min 55 L Glucose Level 109 Calcium Level 8.5 Phosphorus Level 5.5 H Magnesium Level 1.9 Medications Medications Current Medications Acetaminophen (Tylenol Tab) 650 mg Q4H PRN PO PAIN LEVEL 1-10 Last administered on 10/29/18 17:15; Admin Dose 650 MG; Start 10/21/18 at 23:30 Anastrozole (Arimidex) 1 mg DAILY PO Last administered on 11/13/18 09:01; Admin Dose 1 MG; Start 10/22/18 at 09:00 Benazepril HCl (Lotensin) 5 mg DAILY PO Last administered on 10/30/18 09:27; Admin Dose 5 MG; Start 10/22/18 at 09:00; Status Hold Bisacodyl (Dulcolax Supp) 10 mg Q8 OR Last administered on 10/31/18 16:42; Admin Dose 10 MG; Start 10/22/18 at 06:00 Carvedilol (Coreg) 3.125 mg BID PO Last administered on 11/13/18 08:58; Admin Dose 3.125 MG; Start 10/22/18 at 09:00 Docusate Sodium (Colace) 100 mg BID PO Last administered on 11/13/18 08:56; Admin Dose 100 MG; Start 10/22/18 at 09:00 Escitalopram Oxalate (Lexapro) 10 mg DAILY PO Last administered on 11/13/18 08:57; Admin Dose 10 MG; Start 10/22/18 at 09:00 Loratadine (Claritin) 10 mg DAILY PO Last administered on 11/13/18 08:57; Admin Dose 10 MG; Start 10/22/18 at 09:00 Magnesium Hydroxide (Milk Of Mag) 30 ml DAILY PO Last administered on 11/11/18 08:53; Admin Dose 30 ML; Start 10/22/18 at 09:00 Oxycodone HCl (Oxycontin) 20 mg Q12 PO Last administered on 11/13/18 08:59; Admin Dose 20 MG; Start 10/22/18 at 09:00 Pantoprazole (Protonix Tab) 40 mg AC BREAKFAST PO Last administered on 11/13/18 05:47; Admin Dose 40 MG; Start 10/22/18 at 07:25 Polyethylene Glycol (Miralax) 17 gm DAILY PO Last administered on 11/13/18 08:59; Admin Dose 17 GM; Start 10/22/18 at 09:00 Simethicone (Mylicon) 80 mg Q8H PO Last administered on 11/08/18 15:50; Admin Dose 80 MG; Start 10/21/18 at 23:30 Spironolactone (Aldactone) 50 mg DAILY PO Last administered on 11/13/18 08:57; Admin Dose 50 MG; Start 10/22/18 at 09:00 Zolpidem Tartrate (Ambien) 10 mg HS PRN PO INSOMNIA Last administered on 11/11/18 23:03; Admin Dose 5 MG; Start 10/21/18 at 23:30 Morphine Sulfate (morphine) 2 mg Q4H PRN IV SEVERE PAIN LEVEL 7-10 Last administered on 11/12/18 01:15; Admin Dose 2 MG; Start 10/22/18 at 01:30 Phenol (Cepastat Lozenge) 1 lozenge Q1H PRN MT sore throat Last administered on 10/31/18 18:34; Admin Dose 1 LOZENGE; Start 10/27/18 at 21:30 Fluticasone Propionate (Flonase 0.05% Nasal) 1 spray BID NASAL Last administered on 11/10/18 09:25; Admin Dose 1 SPRAY; Start 10/29/18 at 21:00 Budesonide (Pulmicort (Neb)) 0.5 mg BID RESP THERAPY HHN Last administered on 11/13/18 08:35; Admin Dose 0.5 MG; Start 10/30/18 at 09:00 Metolazone (Zaroxolyn) 2.5 mg BID@0530,1730 PO Last administered on 11/13/18 17:55; Admin Dose 2.5 MG; Start 11/01/18 at 05:30 Furosemide (Lasix) 40 mg BID DIURETICS IV Last administered on 11/12/18at 06:04; Admin Dose 40 MG; Start 11/01/18 at 18:00; Status Hold Guaifenesin/ Codeine Phosphate (Robitussin Ac Liquid Cup) 10 ml Q4 PO Last administered on 11/13/18at 17:55; Admin Dose 10 ML; Start 11/02/18 at 09:00 Enoxaparin Sodium (Lovenox) 40 mg DAILY SC Last administered on 11/13/18 09:01; Admin Dose 40 MG; Start 11/02/18 at 09:00 Ibuprofen (Motrin) 400 mg Q6H PRN PO MILD PAIN(1-3) OR TEMP>38C; Start 11/07/18 at 12:20 Albuterol/ Ipratropium (Duoneb) 3 ml Q8H RESP THERAPY PRN HHN SHORTNESS OF BREATH; Start 11/10/18 at 20:00 Potassium Chloride (Klor-Con 20) 20 meq BID PO Last administered on 11/13/18at 08:57; Admin Dose 20 MEQ; Start 11/11/18 at 09:00 KAMILA TERESA November 13, 2018 20:23
--- NOTE | 2018-11-13 22:12 | PN ---
Date/Time of Note Date/Time of Note DATE: 11/13/18 TIME: 22:08 Assessment/Plan VTE Prophylaxis Risk score (from Nsg)>0 risk: 3 SCD applied (from Nsg): Yes SCD contraindicated: other (on) Pharmacological prophylaxis: other (tap.) Lines/Catheters IV Catheter Type (from Nrsg): Peripheral IV Central line still needed: Yes Urinary Cath still in place: No Reason Cath still needed: urinary retention Assessment/Plan Hospital Course Rrecurrent thoracentesis from left pleural cavity.Bronchitis got treated slowly. CHF improved but not totally gone. Continue current chemotherapy bronchodilator therapy correction of fluid his electrolytes and follow the algorithm for a total synthesis planning. Assessment/Plan Assessment/Plan 1. PRIMARY ADENOCARCINOMA of the left breast. MULTIPLE BONY METS, PULMONARY METS;LIVER METS CHEMO ON HOLD; PT HAS A VERY GOOD RESPONSE TO CHEMO AND AI 2. Severe pain in the interscapular and lumbar sacral area most probably metastatic lesion possible femoral fracture. pathologic fracture of T9 with 60% of loss of height. Neurosurgical f/u. 3. Obesity. 4. Weight loss 60 pounds during the last 2 years by diet 5. PMS. 6. Myopia. 7. Anemia chronic disease with a drop of her hematocrit to 27; Latest results 28. Will recheck tomorrow;Leukopenia.Thrombocytopenia; 8. Anxiety disorder. Claustrophobia. Increase Ativan to 1 mg every 8 as needed at Lexapro 10 mg daily. 9. Posttraumatic stress disorder. 10. Pain in the left forearm with a history of fracture of ulna and radius. 11. Tachycardia-resolved 12. Hypoxemia at night marginal improved after 2 L of nasal cannula oxygen. 13. Deconditioning 14. 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 MRI: 09/28/18:diffuse osseous metastatic disease with multiple pathologic compression fractures at least involving the T4, T5, T7, T9 and T11 levels. There is likely mild cortical breakthrough at several levels resulting in mild central canal narrowing. No gross evidence of cord compression is seen.. 15. Pain syndrome. Today the most painful zone is in the right hip area. 16. Hyponatremia-corrected; today and hold Aldactone today. 17. Leucopenia-improved. 18. Neutropenia with occasional fever and chills. Last chemotherapy 5 days ag o. 19. Hypoalbuminemia. 20.Right sided cp after catheter insertion and correction less d iscomfort. 21. Decreased edema both lower extremities with [id number] with Pleural and Pericardial effusion. 22. pain syndrome 23.bilateral pleural effusions ; s/p recurrent left thoracentesis Reaccumulation of the pleural fluid. 24. Systolic over diastolic congestive heart failure with a right more than left lower extremity swelling with no DVT in latest venous Doppler. 25. Swelling of the left forearm-persist. Cellulitis of the left forearm with decreased edema anteriorly.-Today it is less edematous 26. Pathologic fracture of the right hip;s/p hemiarthroplasty of right hip . 27. Dizziness 28. Chills. 29. Memory impairment. 30. Upper respiratory infection pharyngitis with dry cough. 31. Decreased voice with wheezing. 32. Headaches 33. Hypokalemia-elevated level today 3.2 we will continue supplement . Result Diagram: 11/10/18 0428 11/13/18 0435 Results 24hrs Laboratory Tests Test 11/13/18 04:35 Sodium Level 137 Potassium Level 3.2 L Chloride Level 96 L Carbon Dioxide Level 32 H Anion Gap 9 Blood Urea Nitrogen 33 H Creatinine 1.03 H Est Glomerular Filtrat Rate mL/min 55 L Glucose Level 109 Calcium Level 8.5 Phosphorus Level 5.5 H Magnesium Level 1.9 Subjective 24 Hr Interval Summary Free Text/Dictation worsening of sob. dryness of the mouth. Constitutional: improved, poor po, requiring O2; No no complaints, No chills, No diaphoresis, No disoriented, No febrile, No requiring IVF, No other Eyes: redness, visual change; No no complaints, No pain, No discharge, No other ENT: No no complaints, No bleeding, No pain, No congestion, No discharge, No dysphagia, No sore throat, No other Respiratory: cough, pleuritic pain, shortness of breath; No no complaints, No pain, No sputum, No wheezing, No other Cardiovascular: edema, lightheadedness, orthopenea; No no complaints, No chest pain, No palpitations, No paroxysmal nocturnal dyspnea, No other Gastrointestinal: decreased appetite, nausea, passing stool; No no complaints, No pain, No blood, No constipation, No diarrhea, No flatus, No vomiting, No other Genitourinary: dysuria; No no complaints, No bleeding, No discharge, No flank pain, No hematuria, No other Skin: pruritis, rash Neurologic: headache; No no complaints, No confusion, No dizziness, No focal-weakness, No syncope, No seizure, No other Endocrine: polyuria; No no complaints, No polydypsia, No dry skin, No temp intolerance, No other Lymphatic: No no complaints, No adenopathy, No tender nodes, No lymphadema, No other Exam/Review of Systems Exam Vitals Vital Signs Date Temp Pulse Resp B/P (MAP) Pulse Ox O2 O2 Flow FiO2 Time Delivery Rate 11/13/18 82 20 92 21:08 11/13/18 98.4 100/61 19:08 (74) 11/13/18 Room Air 14:29 11/13/18 21 08:36 11/13/18 2.0 08:00 Intake and Output 11/12/18 11/12/18 11/13/18 1515:00 23:00 07:00 IntakeIntake Total 600 ml 240 ml BalanceBalance 600 ml 240 ml Constitutional: alert, oriented, well developed, distress, frail, obese; No non-verbal, No other Psych: anxiety, depression; No no complaints, No nl mood/affect, No confusion, No suicidal, No other Head: normocephalic, atraumatic; No lacerations, No hematomas, No other Eyes: EOMI, nl lids, PERRL; No nl conjunctiva, No nl sclera, No icteric, No fundi, disc, No other ENMT: nl external ears & nose, nl lips & teeth, nl nasal mucosa & septum; No mucosa pink and moist, No intubated, No tympanic membranes, No other Neck: supple, non-tender, bruits; No jvd, No masses, No thyromegaly, No nuchal rigidity, No other Respiratory: clear to auscultation, normal air movement, congested cough, diminished breath sounds; No crackles/rales, No intercostal retraction, No labored breathing, No respirations, No tactile fremitus, No wheezing, No other Cardiovascular: regular rate and rhythm, nl pulses, bruits, systolic murmur; No diastolic murmur, No edema, No gallop, No irregular rhythm, No jugular venous distention (JVD), No murmurs/extra sounds, No rub, No S3, No S4, No other Gastrointestinal: soft, nl liver, spleen, bowel sounds, distended; No non-tender, No ascites, No firm, No hepatomegaly, No mass, No rebound or guarding, No splenomegaly, No surgical scars, No tender, No other Genitourinary - Female: nl adnexae, nl external genitalia Musculoskeletal: joint tenderness, muscle tone, muscle weakness; No nl extremities to inspection, No nl gait and stance, No range of motion, No spine non-tender, No swelling, No other Extremities: normal pulses; No calf tenderness, No cyanosis, No clubbing, No edema, No pitting pedal edema, No palpable cord, No tenderness, No other Neurological: [employer]IONS [employer]IST 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, confused; No nl mental status, No nl speech, No nl strength, No DTR's symmetric, No focal weakness, No lethargic, No numbness, No reflexes, No unresponsive, No other Skin: nl turgor; No rash or lesions, No diaphoresis, No ecchymosis, No laceration, No puncture, No other Lymph: nl lymph nodes; No enlarged, No nontender, No other Results Results 24hrs Laboratory Tests Test 11/13/18 04:35 Sodium Level 137 Potassium Level 3.2 L Chloride Level 96 L Carbon Dioxide Level 32 H Anion Gap 9 Blood Urea Nitrogen 33 H Creatinine 1.03 H Est Glomerular Filtrat Rate mL/min 55 L Glucose Level 109 Calcium Level 8.5 Phosphorus Level 5.5 H Magnesium Level 1.9 Medications Medication Current Medications Acetaminophen (Tylenol Tab) 650 mg Q4H PRN PO PAIN LEVEL 1-10/10 Last administered on 10/29/18at 17:15; Admin Dose 650 MG; Start 10/21/18 at 23:30 Anastrozole (Arimidex) 1 mg DAILY PO Last administered on 11/13/18at 09:01; Admin Dose 1 MG; Start 10/22/18 at 09:00 Benazepril HCl (Lotensin) 5 mg DAILY PO Last administered on 10/30/18at 09:27; Admin Dose 5 MG; Start 10/22/18 at 09:00; Status Hold Bisacodyl (Dulcolax Supp) 10 mg Q8 [place] Last administered on 10/31/18at 16:42; Admin Dose 10 MG; Start 10/22/18 at 06:00 Carvedilol (Coreg) 3.125 mg BID PO Last administered on 11/13/18 21:26; Admin Dose 3.125 MG; Start 10/22/18 at 09:00 Docusate Sodium (Colace) 100 mg BID PO Last administered on 11/13/18 21:26; Admin Dose 100 MG; Start 10/22/18 at 09:00 Escitalopram Oxalate (Lexapro) 10 mg DAILY PO Last administered on 11/13/18 08:57; Admin Dose 10 MG; Start 10/22/18 at 09:00 Loratadine (Claritin) 10 mg DAILY PO Last administered on 11/13/18 08:57; Admin Dose 10 MG; Start 10/22/18 at 09:00 Magnesium Hydroxide (Milk Of Mag) 30 ml DAILY PO Last administered on 11/11/18 08:53; Admin Dose 30 ML; Start 10/22/18 at 09:00 Oxycodone HCl (Oxycontin) 20 mg Q12 PO Last administered on 11/13/18 21:25; Admin Dose 20 MG; Start 10/22/18 at 09:00 Pantoprazole (Protonix Tab) 40 mg AC BREAKFAST PO Last administered on 11/13/18 05:47; Admin Dose 40 MG; Start 10/22/18 at 07:25 Polyethylene Glycol (Miralax) 17 gm DAILY PO Last administered on 11/13/18 08:59; Admin Dose 17 GM; Start 10/22/18 at 09:00 Simethicone (Mylicon) 80 mg Q8H PO Last administered on 11/08/18 15:50; Admin Dose 80 MG; Start 10/21/18 at 23:30 Spironolactone (Aldactone) 50 mg DAILY PO Last administered on 11/13/18 08:57; Admin Dose 50 MG; Start 10/22/18 at 09:00 Zolpidem Tartrate (Ambien) 10 mg HS PRN PO INSOMNIA Last administered on 11/11/18 23:03; Admin Dose 5 MG; Start 10/21/18 at 23:30 Morphine Sulfate (morphine) 2 mg Q4H PRN IV SEVERE PAIN LEVEL 7-10 Last administered on 11/12/18 01:15; Admin Dose 2 MG; Start 10/22/18 at 01:30 Phenol (Cepastat Lozenge) 1 lozenge Q1H PRN MT sore throat Last administered on 10/31/18 18:34; Admin Dose 1 LOZENGE; Start 10/27/18 at 21:30 Fluticasone Propionate (Flonase 0.05% Nasal) 1 spray BID NASAL Last administered on 11/13/18 21:27; Admin Dose 1 SPRAY; Start 10/29/18 at 21:00 Budesonide (Pulmicort (Neb)) 0.5 mg BID RESP THERAPY HHN Last administered on 11/13/18 21:08; Admin Dose 0.5 MG; Start 10/30/18 at 09:00 Metolazone (Zaroxolyn) 2.5 mg BID@0530,1730 PO Last administered on 11/13/18 17:55; Admin Dose 2.5 MG; Start 11/01/18 at 05:30 Furosemide (Lasix) 40 mg BID DIURETICS IV Last administered on 11/12/18 06:04; Admin Dose 40 MG; Start 11/01/18 at 18:00; Status Hold Guaifenesin/ Codeine Phosphate (Robitussin Ac Liquid Cup) 10 ml Q4 PO Last administered on 11/13/18 21:29; Admin Dose 10 ML; Start 11/02/18 at 09:00 Enoxaparin Sodium (Lovenox) 40 mg DAILY SC Last administered on 11/13/18 09:01; Admin Dose 40 MG; Start 11/02/18 at 09:00 Ibuprofen (Motrin) 400 mg Q6H PRN PO MILD PAIN(1-3) OR TEMP>38C; Start 11/07/18 at 12:20 Albuterol/ Ipratropium (Duoneb) 3 ml Q8H RESP THERAPY PRN HHN SHORTNESS OF BREATH; Start 11/10/18 at 20:00 Potassium Chloride (Klor-Con 20) 20 meq BID PO Last administered on 11/13/18 21:26; Admin Dose 20 MEQ; Start 11/11/18 at 09:00 URSS JEROME MD November 13, 2018 22:12
--- NOTE | 2018-11-13 23:16 | CONS ---
Assessment/Plan Assessment/Plan Hospital Course (Demo Recall) METASTATIC BREAST CANCER WITH PRIMARY ADENOCARCINOMA IN the left breast. MULTIPLE BONY METS, PULMONARY METS, LIVER METS CHEMO ON HOLD PT HAS A VERY GOOD RESPONSE TO CHEMO AND AI CONT AI FOR NOW CT ABD FOR RESTAGING 08.27.18- noted , stable Leukopenia- post chemo, FLUCTUATING WITH RECENT WORSENING- post NEUPOGEN monitor closely post Neutropenia with occasional fever and chills. - resolved Anemia chronic disease SOB PLEURAL EFFUSIONS, NEG CYTOLOGY POST thoracentesis Fluid overload diuretic cardiology F-UP Severe pain in the interscapular and lumbar sacral area most probably metastatic lesion possible femoral fracture. pathologic fracture of T9 with 60% of loss of height. Bony pain with multiple bony mets post XRT d/w dr Ocampo Obesity. Weight loss 60 pounds during the last 2 years COUGH, Upper respiratory infection pharyngitis with dry cough. POST ATB PMS. Myopia. Anxiety disorder. Claustrophobia. Posttraumatic stress disorder. Pain in the left forearm with a history of fracture of ulna and radius. Tachycardia Hypoxemia at night marginal improved after 2 L of nasal cannula oxygen. Deconditioning Pain syndrome. Today the most painful zone is in the right hip area. X-ray did not show any fractures. Hyponatremia- resolved Hypoalbuminemia Right sided cp after catheter insertion and correction less discomfort. Decreased edema both lower extremities with hypotension-improving Swelling of the left forearm-persist. Consultation Date/Type/Reason Admit Date/Time October 21, 2018 at 17:39 Initial Consult Date 10/21/18 Type of Consult [facility] Requesting Provider: RUSS JEROME MD Date/Time of Note DATE: 11/13/18 TIME: 23:15 24 HR Interval Summary Free Text/Dictation ALL NOTED NAD IN THE BED Exam/Review of Systems Exam Vitals Vital Signs Date Temp Pulse Resp B/P (MAP) Pulse Ox O2 O2 Flow FiO2 Time Delivery Rate 11/13/18 82 20 92 21:08 11/13/18 98.4 100/61 19:08 (74) 11/13/18 Room Air 14:29 11/13/18 21 08:36 11/13/18 2.0 08:00 Intake and Output 11/12/18 11/12/18 11/13/18 1515:00 23:00 07:00 IntakeIntake Total 600 ml 240 ml BalanceBalance 600 ml 240 ml Exam HEENT: Head is normocephalic. NECK: Supple. HEART: Regular rate. LUNGS: Show diminished breath sounds at the base., COARSE, FEW RHONCHI ABDOMEN: Soft, nontender to palpation without rebound or guarding. EXTREMITIES: Negative for clubbing, cyanosis. Positive edema, improving. DERMATOLOGIC: No rashes. MUSCULOSKELETAL: No joint effusion. NEUROLOGIC: No change in exam. Results Result Diagram: 11/10/18 0428 11/13/18 0435 Results 24hrs Laboratory Tests Test 11/13/18 04:35 Sodium Level 137 Potassium Level 3.2 L Chloride Level 96 L Carbon Dioxide Level 32 H Anion Gap 9 Blood Urea Nitrogen 33 H Creatinine 1.03 H Est Glomerular Filtrat Rate mL/min 55 L Glucose Level 109 Calcium Level 8.5 Phosphorus Level 5.5 H Magnesium Level 1.9 Medications Medication Current Medications Acetaminophen (Tylenol Tab) 650 mg Q4H PRN PO PAIN LEVEL 1-10/10 Last administered on 10/29/18 17:15; Admin Dose 650 MG; Start 10/21/18 at 23:30 Anastrozole (Arimidex) 1 mg DAILY PO Last administered on 11/13/18 09:01; Admin Dose 1 MG; Start 10/22/18 at 09:00 Benazepril HCl (Lotensin) 5 mg DAILY PO Last administered on 10/30/18 09:27; Admin Dose 5 MG; Start 10/22/18 at 09:00; Status Hold Bisacodyl (Dulcolax Supp) 10 mg Q8 MD Last administered on 10/31/18 16:42; Admin Dose 10 MG; Start 10/22/18 at 06:00 Carvedilol (Coreg) 3.125 mg BID PO Last administered on 11/13/18 21:26; Admin Dose 3.125 MG; Start 10/22/18 at 09:00 Docusate Sodium (Colace) 100 mg BID PO Last administered on 11/13/18 21:26; Admin Dose 100 MG; Start 10/22/18 at 09:00 Escitalopram Oxalate (Lexapro) 10 mg DAILY PO Last administered on 11/13/18 08:57; Admin Dose 10 MG; Start 10/22/18 at 09:00 Loratadine (Claritin) 10 mg DAILY PO Last administered on 11/13/18 08:57; Admin Dose 10 MG; Start 10/22/18 at 09:00 Magnesium Hydroxide (Milk Of Mag) 30 ml DAILY PO Last administered on 11/11/18 08:53; Admin Dose 30 ML; Start 10/22/18 at 09:00 Oxycodone HCl (Oxycontin) 20 mg Q12 PO Last administered on 11/13/18 21:25; Admin Dose 20 MG; Start 10/22/18 at 09:00 Pantoprazole (Protonix Tab) 40 mg AC BREAKFAST PO Last administered on 11/13/18 05:47; Admin Dose 40 MG; Start 10/22/18 at 07:25 Polyethylene Glycol (Miralax) 17 gm DAILY PO Last administered on 11/13/18 08:59; Admin Dose 17 GM; Start 10/22/18 at 09:00 Simethicone (Mylicon) 80 mg Q8H PO Last administered on 11/08/18 15:50; Admin Dose 80 MG; Start 10/21/18 at 23:30 Spironolactone (Aldactone) 50 mg DAILY PO Last administered on 11/13/18 08:57; Admin Dose 50 MG; Start 10/22/18 at 09:00 Zolpidem Tartrate (Ambien) 10 mg HS PRN PO INSOMNIA Last administered on 11/11/18 23:03; Admin Dose 5 MG; Start 10/21/18 at 23:30 Morphine Sulfate (morphine) 2 mg Q4H PRN IV SEVERE PAIN LEVEL 7-10 Last administered on 11/12/18 01:15; Admin Dose 2 MG; Start 10/22/18 at 01:30 Phenol (Cepastat Lozenge) 1 lozenge Q1H PRN MT sore throat Last administered on 10/31/18 18:34; Admin Dose 1 LOZENGE; Start 10/27/18 at 21:30 Fluticasone Propionate (Flonase 0.05% Nasal) 1 spray BID NASAL Last administered on 11/13/18 21:27; Admin Dose 1 SPRAY; Start 10/29/18 at 21:00 Budesonide (Pulmicort (Neb)) 0.5 mg BID RESP THERAPY HHN Last administered on 11/13/18 21:08; Admin Dose 0.5 MG; Start 10/30/18 at 09:00 Metolazone (Zaroxolyn) 2.5 mg BID@0530,1730 PO Last administered on 11/13/18at 17:55; Admin Dose 2.5 MG; Start 11/01/18 at 05:30 Furosemide (Lasix) 40 mg BID DIURETICS IV Last administered on 11/12/18at 06:0 4; Admin Dose 40 MG; Start 11/01/18 at 18:00; Status Hold Guaifenesin/ Codeine Phosphate (Robitussin Ac Liquid Cup) 10 ml Q4 PO Last administered on 11/13/18at 21:29; Admin Dose 10 ML; Start 11/02/18 at 09:00 Enoxaparin Sodium (Lovenox) 40 mg DAILY SC Last administered on 11/13/18at 09:01; Admin Dose 40 MG; Start 11/02/18 at 09:00 Ibuprofen (Motrin) 400 mg Q6H PRN PO MILD PAIN(1-3) OR TEMP>38C; Start 11/07/18 at 12:20 Albuterol/ Ipratropium (Duoneb) 3 ml Q8H RESP THERAPY PRN HHN SHORTNESS OF BREATH; Start 11/10/18 at 20:00 Potassium Chloride (Klor-Con 20) 20 meq BID PO Last administered on 11/13/18at 21:26; Admin Dose 20 MEQ; Start 11/11/18 at 09:00 DES DUNAWAY MD November 13, 2018 23:16
[2018-11-14] VITALS (9 sets, daily range): BP systolic 99–110; BP diastolic 61–72; PULSE 75–82; RESP 16–18
[2018-11-14] MEDS: GUAIFENESIN/CODEINE 5ML CUP PO SCH ×6 (01:00→21:18)
[2018-11-14] MEDS: METOLAZONE 2.5 MG TAB PO SCH ×2 (04:30→17:48)
[2018-11-14] MEDS: PANTOPRAZOLE (EC) 40 MG TAB PO SCH (04:30)
[2018-11-14] MEDS: BISACODYL 10 MG SUPP PR SCH ×3 (06:00→22:00)
[2018-11-14] MEDS ORDERED: ACETAZOLAMIDE 500 MG INJ IV ONE (08:30)
[2018-11-14] MEDS: MAGNESIUM HYDROXIDE 30ML CUP PO SCH (08:41)
[2018-11-14] MEDS: POLYETHYLENE GLYCOL 17 GM PACKET PO SCH (08:41)
[2018-11-14] MEDS: oxyCODONE (CR) 20 MG TAB [oxyCONTIN] PO SCH ×2 (08:42→21:16)
[2018-11-14] MEDS: SPIRONOLACTONE 50 MG TAB PO SCH (08:42)
[2018-11-14] MEDS: LORATADINE 10 MG TAB PO SCH (08:42)
[2018-11-14] MEDS: ESCITALOPRAM 10 MG TAB PO SCH (08:42)
[2018-11-14] MEDS: DOCUSATE SODIUM 100 MG CAP PO SCH ×2 (08:42→21:14)
[2018-11-14] MEDS: POTASSIUM CHLORIDE (SR) 20 MEQ TAB PO SCH ×2 (08:43→21:15)
[2018-11-14] MEDS: ANASTROZOLE 1 MG TAB PO SCH (08:44)
[2018-11-14] MEDS: FLUTICASONE 0.05% 16 GM NAS SPRAY NASAL SCH ×2 (09:00→21:00)
[2018-11-14] MEDS: BUDESONIDE (NEB) 0.5MG/2ML AMP HHN SCH ×2 (09:00→20:56)
--- NOTE | 2018-11-14 09:26 | PN ---
DATE: 11/14/2018 SUBJECTIVE: The patient is stable, no events overnight. OBJECTIVE: VITAL SIGNS: Blood pressure 106/62, pulse 76, respirations 18, temperature 98.4. HEENT: Head is normocephalic. NECK: Supple. HEART: Regular rate. LUNGS: Show diminished breath sounds at the base. ABDOMEN: Soft, nontender to palpation without rebound or guarding. EXTREMITIES: Negative for clubbing, cyanosis, no edema. DERMATOLOGIC: No rashes. MUSCULOSKELETAL: No joint effusion. NEUROLOGIC: No change in exam. MEDICATIONS: Reviewed. LABORATORY DATA: Reviewed. ASSESSMENT AND PLAN: 1. Volume overload. Etiology is likely secondary to diastolic heart failure, questionable portal hy pertension due to metastatic disease. The patient appears near euvolemic. Continue current diuretic regimen. Continue Aldactone and metolazone. We will continue Diamox for another 24 hours to treat underlying alkalemia. Continue to monitor electrolytes and renal function closely. 2. Metabolic alkalemia secondary to hypokalemia and diuretic therapy, improving. Continue Diamox. 3. Hypokalemia. Continue to monitor and replete. 4. Nonoliguric acute kidney injury. Etiology is secondary to hemodynamics. Renal function is fluct uating. Continue to monitor. 5. Breast cancer with metastasis to the liver and spine. Continue to monitor. 6. Hip fracture, status post arthroplasty. 7. Pleural effusion. The patient is pending possible thoracentesis. 8. Chronic pain syndrome. 9. Status post bronchitis. Dictated By: ANDRÉS YO/NTS Conf#: [id number] DID#: [id number] CC: RUSS JEROME MD;*EndCC*
[2018-11-14] MEDS ORDERED: LIDOCAINE 1% (MPF) 5 ML VIAL ONE (11:34)
[2018-11-14] MEDS: ENOXAPARIN 40 MG/0.4 ML SYG SC SCH (12:30)
--- NOTE | 2018-11-14 19:12 | CONS ---
Assessment/Plan Assessment/Plan Hospital Course (Demo Recall) IMPRESSION: 1. Congestive heart failure exacerbation would be diastolic, acute on chronic by most recent echo.-now s/p echo this admit with EF 60/small effusion 2. Abnormal electrocardiogram with low voltage, rule out pericardial effusion. 3. Hypertension-currently borderline hypotension 4. Metastatic breast carcinoma. 5. History of pathologic fractures of the leg, status post open reduction and internal fixation. 6. Anemia. 7. Increased BNP consistent with patient's congestive heart failure. 8. Pericardial effusion-small by echo 9. Edema-LE venous UTZneg for DVT 10. Hypokalemia-s/p repletion today/on aldactone Recc: -On med-surg -Continued on metolazone and aldactone with overall significantly iumproved volume status and resolution of much of LLE edema but now mild renal insuff and thus lasix held -Continue current coreg as tolerated only and continue to hold benazepril at this time and follow BP closely -follow K clsoely on aldactone -D/C planning-awaiting placement Consultation Date/Type/Reason Admit Date/Time October 21, 2018 at 17:39 Initial Consult Date 10/21/18 Type of Consult Cardiology Reason for Consultation CHF Requesting Provider: RUSS JEROME MD Date/Time of Note DATE: 11/14/18 TIME: 19:10 Exam/Review of Systems Vital Signs Vitals Vital Signs Date Temp Pulse Resp B/P (MAP) Pulse Ox O2 O2 Flow FiO2 Time Delivery Rate 11/14/18 98.8 80 18 105/72 99 Room Air 15:15 (83) 11/14/18 2.0 13:18 11/13/18 21 21:08 Intake and Output 11/13/18 11/13/18 11/14/18 1515:00 23:00 07:00 IntakeIntake Total 800 ml 200 ml BalanceBalance 800 ml 200 ml Exam Exam Review of Systems: CONSTITUTIONAL: No fevers, chills. PULMONARY: No sob CARDIOVASCULAR: No chest pain/palpitations GASTROINTESTINAL: No nausea/vomiting. GENITOURINARY: No hematuria/dysuria. MUSCULOSKELETAL: No myagias/arthalgias. PSYCHIATRIC: The patient denies depression. NEUROLOGIC: No weakness Constitutional: alert, oriented Psych: no complaints Head: normocephalic ENMT: mucosa pink and moist Neck: supple, jvd (9 cm water) Respiratory: clear to auscultation Cardiovascular: regular rate and rhythm Gastrointestinal: soft, non-tender Musculoskeletal: muscle tone (normal) Extremities: pitting pedal edema (R>>L) Neurological: other (no focal defiicts) Labs Result Diagram: 11/10/188 11/14/18 0424 Results 24hrs Laboratory Tests Test 11/14/18 04:24 Sodium Level 135 Potassium Level 3.6 Chloride Level 97 Carbon Dioxide Level 30 Anion Gap 8 Blood Urea Nitrogen 37 H Creatinine 1.04 H Est Glomerular Filtrat Rate mL/min 54 L Glucose Level 106 Calcium Level 8.8 Phosphorus Level 5.4 H Magnesium Level 2.1 Medications Medications Current Medications Acetaminophen (Tylenol Tab) 650 mg Q4H PRN PO PAIN LEVEL 1-1010 Last administered on 10/29/18 17:15; Admin Dose 650 MG; Start 10/21/18 at 23:30 Anastrozole (Arimidex) 1 mg DAILY PO Last administered on 11/14/18 08:44; Admin Dose 1 MG; Start 10/22/18 at 09:00 Benazepril HCl (Lotensin) 5 mg DAILY PO Last administered on 10/30/18 09:27; Admin Dose 5 MG; Start 10/22/18 at 09:00; Status Hold Bisacodyl (Dulcolax Supp) 10 mg Q8 OK Last administered on 10/31/18 16:42; Admin Dose 10 MG; Start 10/22/18 at 06:00 Carvedilol (Coreg) 3.125 mg BID PO Last administered on 11/14/18 08:46; Admin Dose 3.125 MG; Start 10/22/18 at 09:00 Docusate Sodium (Colace) 100 mg BID PO Last administered on 11/14/18 08:42; Admin Dose 100 MG; Start 10/22/18 at 09:00 Escitalopram Oxalate (Lexapro) 10 mg DAILY PO Last administered on 11/14/18 08:42; Admin Dose 10 MG; Start 10/22/18 at 09:00 Loratadine (Claritin) 10 mg DAILY PO Last administered on 11/14/18 08:42; Admin Dose 10 MG; Start 10/22/18 at 09:00 Magnesium Hydroxide (Milk Of Mag) 30 ml DAILY PO Last administered on 11/14/18 08:41; Admin Dose 30 ML; Start 10/22/18 at 09:00 Oxycodone HCl (Oxycontin) 20 mg Q12 PO Last administered on 11/14/18 08:42; Admin Dose 20 MG; Start 10/22/18 at 09:00 Pantoprazole (Protonix Tab) 40 mg AC BREAKFAST PO Last administered on 11/14/18 04:30; Admin Dose 40 MG; Start 10/22/18 at 07:25 Polyethylene Glycol (Miralax) 17 gm DAILY PO Last administered on 11/14/18 08:41; Admin Dose 17 GM; Start 10/22/18 at 09:00 Simethicone (Mylicon) 80 mg Q8H PO Last administered on 11/08/18 15:50; Admin Dose 80 MG; Start 10/21/18 at 23:30 Spironolactone (Aldactone) 50 mg DAILY PO Last administered on 11/14/18 08:42; Admin Dose 50 MG; Start 10/22/18 at 09:00 Zolpidem Tartrate (Ambien) 10 mg HS PRN PO INSOMNIA Last administered on 11/11/18 23:03; Admin Dose 5 MG; Start 10/21/18 at 23:30 Morphine Sulfate (morphine) 2 mg Q4H PRN IV SEVERE PAIN LEVEL 7-10 Last administered on 11/12/18 01:15; Admin Dose 2 MG; Start 10/22/18 at 01:30 Phenol (Cepastat Lozenge) 1 lozenge Q1H PRN MT sore throat Last administered on 10/31/18 18:34; Admin Dose 1 LOZENGE; Start 10/27/18 at 21:30 Fluticasone Propionate (Flonase 0.05% Nasal) 1 spray BID NASAL Last administered on 11/13/18 21:27; Admin Dose 1 SPRAY; Start 10/29/18 at 21:00 Budesonide (Pulmicort (Neb)) 0.5 mg BID RESP THERAPY HHN Last administered on 11/13/18 21:08; Admin Dose 0.5 MG; Start 10/30/18 at 09:00 Metolazone (Zaroxolyn) 2.5 mg BID@0530,1730 PO Last administered on 11/14/18 17:48; Admin Dose 2.5 MG; Start 11/01/18 at 05:30 Furosemide (Lasix) 40 mg BID DIURETICS IV Last administered on 11/12/18at 0 6:04; Admin Dose 40 MG; Start 11/01/18 at 18:00; Status Hold Guaifenesin/ Codeine Phosphate (Robitussin Ac Liquid Cup) 10 ml Q4 PO Last administered on 11/14/18at 12:29; Admin Dose 10 ML; Start 11/02/18 at 09:00 Enoxaparin Sodium (Lovenox) 40 mg DAILY SC Last administered on 11/14/18 12:30; Admin Dose 40 MG; Start 11/02/18 at 09:00 Ibuprofen (Motrin) 400 mg Q6H PRN PO MILD PAIN(1-3) OR TEMP>38C; Start 11/07/18 at 12:20 Albuterol/ Ipratropium (Duoneb) 3 ml Q8H RESP THERAPY PRN HHN SHORTNESS OF BREATH; Start 11/10/18 at 20:00 Potassium Chloride (Klor-Con 20) 20 meq BID PO Last administered on 11/14/18at 08:43; Admin Dose 20 MEQ; Start 11/11/18 at 09:00 KAMILA TERESA November 14, 2018 19:12
--- NOTE | 2018-11-14 22:47 | CONS ---
Assessment/Plan Assessment/Plan Hospital Course (Demo Recall) METASTATIC BREAST CANCER WITH PRIMARY ADENOCARCINOMA IN the left breast. MULTIPLE BONY METS, PULMONARY METS, LIVER METS CHEMO ON HOLD PT HAS A VERY GOOD RESPONSE TO CHEMO AND AI CONT AI FOR NOW CT ABD FOR RESTAGING 08.27.18- noted , stable Leukopenia- post chemo, FLUCTUATING WITH RECENT WORSENING- post NEUPOGEN monitor closely post Neutropenia with occasional fever and chills. - resolved Anemia chronic disease SOB PLEURAL EFFUSIONS, NEG CYTOLOGY POST thoracentesis Fluid overload diuretic cardiology F-UP Severe pain in the interscapular and lumbar sacral area most probably metastatic lesion possible femoral fracture. pathologic fracture of T9 with 60% of loss of height. Bony pain with multiple bony mets post XRT d/w dr Ocampo Obesity. Weight loss 60 pounds during the last 2 years COUGH, Upper respiratory infection pharyngitis with dry cough. POST ATB PMS. Myopia. Anxiety disorder. Claustrophobia. Posttraumatic stress disorder. Pain in the left forearm with a history of fracture of ulna and radius. Tachycardia Hypoxemia at night marginal improved after 2 L of nasal cannula oxygen. Deconditioning Pain syndrome. Today the most painful zone is in the right hip area. X-ray did not show any fractures. Hyponatremia- resolved Hypoalbuminemia Right sided cp after catheter insertion and correction less discomfort. Decreased edema both lower extremities with hypotension-improving Swelling of the left forearm-persist. Consultation Date/Type/Reason Admit Date/Time October 21, 2018 at 17:39 Initial Consult Date 10/21/18 Type of Consult [facility] Requesting Provider: RUSS JEROME MD Date/Time of Note DATE: 11/14/18 TIME: 22:46 24 HR Interval Summary Free Text/Dictation all noted NAD Exam/Review of Systems Exam Vitals Vital Signs Date Temp Pulse Resp B/P (MAP) Pulse Ox O2 O2 Flow FiO2 Time Delivery Rate 11/14/18 81 20 93 20:56 11/14/18 2.0 20:56 11/14/18 98.4 99/61 (74) 19:15 11/14/18 Room Air 15:15 11/13/18 21 21:08 Intake and Output 11/13/18 11/13/18 11/14/18 1515:00 23:00 07:00 IntakeIntake Total 800 ml 200 ml BalanceBalance 800 ml 200 ml Exam HEENT: Head is normocephalic. NECK: Supple. HEART: Regular rate. LUNGS: Show diminished breath sounds at the base., COARSE, FEW RHONCHI ABDOMEN: Soft, nontender to palpation without rebound or guarding. EXTREMITIES: Negative for clubbing, cyanosis. Positive edema, improving. DERMATOLOGIC: No rashes. MUSCULOSKELETAL: No joint effusion. NEUROLOGIC: No change in exam. Results Result Diagram: 11/10/188 11/14/18 0424 Results 24hrs Laboratory Tests Test 11/14/18 04:24 Sodium Level 135 Potassium Level 3.6 Chloride Level 97 Carbon Dioxide Level 30 Anion Gap 8 Blood Urea Nitrogen 37 H Creatinine 1.04 H Est Glomerular Filtrat Rate mL/min 54 L Glucose Level 106 Calcium Level 8.8 Phosphorus Level 5.4 H Magnesium Level 2.1 Medications Medication Current Medications Acetaminophen (Tylenol Tab) 650 mg Q4H PRN PO PAIN LEVEL 1-10/10 Last administered on 10/29/18 17:15; Admin Dose 650 MG; Start 10/21/18 at 23:30 Anastrozole (Arimidex) 1 mg DAILY PO Last administered on 11/14/18 08:44; Admin Dose 1 MG; Start 10/22/18 at 09:00 Benazepril HCl (Lotensin) 5 mg DAILY PO Last administered on 10/30/18 09:27; Admin Dose 5 MG; Start 10/22/18 at 09:00; Status Hold Bisacodyl (Dulcolax Supp) 10 mg Q8 [place] Last administered on 10/31/18 16:42; Admin Dose 10 MG; Start 10/22/18 at 06:00 Carvedilol (Coreg) 3.125 mg BID PO Last administered on 11/14/18 08:46; Admin Dose 3.125 MG; Start 10/22/18 at 09:00 Docusate Sodium (Colace) 100 mg BID PO Last administered on 11/14/18 21:14; Admin Dose 100 MG; Start 10/22/18 at 09:00 Escitalopram Oxalate (Lexapro) 10 mg DAILY PO Last administered on 11/14/18 08:42; Admin Dose 10 MG; Start 10/22/18 at 09:00 Loratadine (Claritin) 10 mg DAILY PO Last administered on 11/14/18 08:42; Admin Dose 10 MG; Start 10/22/18 at 09:00 Magnesium Hydroxide (Milk Of Mag) 30 ml DAILY PO Last administered on 11/14/18 08:41; Admin Dose 30 ML; Start 10/22/18 at 09:00 Oxycodone HCl (Oxycontin) 20 mg Q12 PO Last administered on 11/14/18 21:16; Admin Dose 20 MG; Start 10/22/18 at 09:00 Pantoprazole (Protonix Tab) 40 mg AC BREAKFAST PO Last administered on 11/14/18 04:30; Admin Dose 40 MG; Start 10/22/18 at 07:25 Polyethylene Glycol (Miralax) 17 gm DAILY PO Last administered on 11/14/18 08:41; Admin Dose 17 GM; Start 10/22/18 at 09:00 Simethicone (Mylicon) 80 mg Q8H PO Last administered on 11/08/18 15:50; Admin Dose 80 MG; Start 10/21/18 at 23:30 Spironolactone (Aldactone) 50 mg DAILY PO Last administered on 11/14/18 08:42; Admin Dose 50 MG; Start 10/22/18 at 09:00 Zolpidem Tartrate (Ambien) 10 mg HS PRN PO INSOMNIA Last administered on 11/11/18 23:03; Admin Dose 5 MG; Start 10/21/18 at 23:30 Morphine Sulfate (morphine) 2 mg Q4H PRN IV SEVERE PAIN LEVEL 7-10 Last administered on 11/12/18 01:15; Admin Dose 2 MG; Start 10/22/18 at 01:30 Phenol (Cepastat Lozenge) 1 lozenge Q1H PRN MT sore throat Last administered on 10/31/18 18:34; Admin Dose 1 LOZENGE; Start 10/27/18 at 21:30 Fluticasone Propionate (Flonase 0.05% Nasal) 1 spray BID NASAL Last administered on 11/13/18 21:27; Admin Dose 1 SPRAY; Start 10/29/18 at 21:00 Budesonide (Pulmicort (Neb)) 0.5 mg BID RESP THERAPY HHN Last administered on 11/14/18 20:56; Admin Dose 0.5 MG; Start 10/30/18 at 09:00 Metolazone (Zaroxolyn) 2.5 mg BID@0530,1730 PO Last administered on 11/14/18 17:48; Admin Dose 2.5 MG; Start 11/01/18 at 05:30 Furosemide (Lasix) 40 mg BID DIURETICS IV Last administered on 11/12/18 06:04; Admin Dose 40 MG; Start 11/01/18 at 18:00; Status Hold Guaifenesin/ Codeine Phosphate (Robitussin Ac Liquid Cup) 10 ml Q4 PO Last administered on 11/14/18 21:18; Admin Dose 10 ML; Start 11/02/18 at 09:00 Enoxaparin Sodium (Lovenox) 40 mg DAILY SC Last administered on 11/14/18 12:30; Admin Dose 40 MG; Start 11/02/18 at 09:00 Ibuprofen (Motrin) 400 mg Q6H PRN PO MILD PAIN(1-3) OR TEMP>38C; Start 11/07/18 at 12:20 Albuterol/ Ipratropium (Duoneb) 3 ml Q8H RESP THERAPY PRN HHN SHORTNESS OF BREATH; Start 11/10/18 at 20:00 Potassium Chloride (Klor-Con 20) 20 meq BID PO Last administered on 11/14/18 21:15; Admin Dose 20 MEQ; Start 11/11/18 at 09:00 DES DUNAWAY MD November 14, 2018 22:47
[2018-11-15] MEDS: GUAIFENESIN/CODEINE 5ML CUP PO SCH ×6 (00:09→21:48)
[2018-11-15] MEDS: morphine 2 MG INJ IV PRN (00:14)
[2018-11-15 01:33] VITALS: BP 96/60; PULSE 83; RESP 18
[2018-11-15] MEDS: PANTOPRAZOLE (EC) 40 MG TAB PO SCH (04:38)
[2018-11-15] MEDS: METOLAZONE 2.5 MG TAB PO SCH ×2 (04:40→17:28)
[2018-11-15] MEDS: BISACODYL 10 MG SUPP PR SCH ×3 (04:42→21:51)
[2018-11-15 07:37] VITALS: BP 101/70; PULSE 78; RESP 18
--- NOTE | 2018-11-15 08:54 | PN ---
Date/Time of Note Date/Time of Note DATE: 11/15/18 TIME: 08:52 Assessment/Plan VTE Prophylaxis Risk score (from Nsg)>0 risk: 8 SCD applied (from Nsg): Yes SCD contraindicated: other (on.) Pharmacological prophylaxis: LMWH Lines/Catheters IV Catheter Type (from Nrsg): Peripheral IV Central line still needed: Yes Urinary Cath still in place: No Assessment/Plan Hospital Course Rrecurrent thoracentesis from left pleural cavity.Bronchitis got treated slowly. CHF improved but not totally gone. Continue current chemotherapy bronchodilator therapy correction of fluid his electrolytes and follow the algorithm for a total synthesis planning. Assessment/Plan 1. PRIMARY ADENOCARCINOMA of the left breast. MULTIPLE BONY METS, PULMONARY METS;LIVER METS CHEMO ON HOLD; PT HAS A VERY GOOD RESPONSE TO CHEMO AND AI 2. Severe pain in the interscapular and lumbar sacral area most probably metastatic lesion possible femoral fracture. pathologic fracture of T9 with 60% of loss of height. Neurosurgical f/u. 3. Obesity. 4. Weight loss 60 pounds during the last 2 years by diet 5. PMS. 6. Myopia. 7. Anemia chronic disease with a drop of her hematocrit to 27; Latest results 28. Will recheck tomorrow;Leukopenia.Thrombocytopenia; 8. Anxiety disorder. Claustrophobia. Increase Ativan to 1 mg every 8 as needed at Lexapro 10 mg daily. 9. Posttraumatic stress disorder. 10. Pain in the left forearm with a history of fracture of ulna and radius. 11. Tachycardia-resolved 12. Hypoxemia at night marginal improved after 2 L of nasal cannula oxygen. 13. Deconditioning 14. 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 MRI: 09/28/18:diffuse osseous metastatic disease with multiple pathologic compression fractures at least involving the T4, T5, T7, T9 and T11 levels. There is likely mild cortical breakthrough at several levels resulting in mild central canal narrowing. No gross evidence of cord compression is seen.. 15. Pain syndrome. Today the most painful zone is in the right hip area. 16. Hyponatremia-corrected; today and hold Aldactone today. 17. Leucopenia-improved. 18. Neutropenia with occasional fever and chills. Last chemotherapy 5 days ago. 19. Hypoalbuminemia. 20.Right sided cp after catheter insertion and correction less discomfort. 21. Decreased edema both lower extremities with [id number] with Pleural and Pericardial effusion. 22. pain syndrome 23.bilateral pleural effusions ; s/p recurrent left thoracentesis Reaccumulation of the pleural fluid. 24. Systolic over diastolic congestive heart failure with a right more than left lower extremity swelling with no DVT in latest venous Doppler. 25. Swelling of the left forearm-persist. Cellulitis of the left forearm with decreased edema anteriorly.-Today it is less edematous 26. Pathologic fracture of the right hip;s/p hemiarthroplasty of right hip . 27. Dizziness 28. Chills. 29. Memory impairment. 30. Upper respiratory infection pharyngitis with dry cough. 31. Decreased voice with wheezing. 32. Headaches 33. Hypokalemia Result Diagram: 11/15/18 0427 Results 24hrs Laboratory Tests Test 11/15/18 04:27 Sodium Level 135 Potassium Level 3.7 Chloride Level 98 Carbon Dioxide Level 29 Anion Gap 8 Blood Urea Nitrogen 33 H Creatinine 1.03 H Est Glomerular Filtrat Rate mL/min 55 L Glucose Level 108 Calcium Level 9.1 Phosphorus Level 5.4 H Magnesium Level 2.1 Subjective 24 Hr Interval Summary Free Text/Dictation My breathing improved significantly after evacuation of pleural fluid. Local pain. Great difficulty to get up to walk mainly secondary to the pain of the right hip area on and off it is getting intolerable. No fever and chills no nausea vomiting. Constitutional: improved; No no complaints, No chills, No diaphoresis, No disoriented, No febrile, No poor po, No requiring IVF, No requiring O2, No other Eyes: No no complaints, No pain, No discharge, No redness, No visual change, No other ENT: No no complaints, No bleeding, No pain, No congestion, No discharge, No dysphagia, No sore throat, No other Respiratory: cough, shortness of breath; No no complaints, No pain, No pleuritic pain, No sputum, No wheezing, No other Cardiovascular: edema (Prominent in the right leg and left upper extremity.); No no complaints, No chest pain, No lightheadedness, No orthopenea, No palpitations, No paroxysmal nocturnal dyspnea, No other Gastrointestinal: nausea; No no complaints, No pain, No blood, No constipation, No decreased appetite, No diarrhea, No flatus, No passing stool, No vomiting, No other Genitourinary: dysuria; No no complaints, No bleeding, No discharge, No flank pain, No hematuria, No other Musculoskeletal: back pain, bone/joint pain (Pain mainly located in the right hip area neck shoulder pain are less intense according to her controlled by medications.); No no complaints, No neck pain, No restricted range of motion, No swelling, No other Skin: No no complaints, No bruising, No erythema, No laceration, No pruritis, No rash, No skin lesions, No other Neurologic: No no complaints, No confusion, No dizziness, No focal-weakness, No headache, No syncope, No seizure, No other Endocrine: No no complaints, No polyuria, No polydypsia, No dry skin, No temp intolerance, No other Lymphatic: No no complaints, No adenopathy, No tender nodes, No lymphadema, No other Psychological: anxiety; No no complaints, No nl mood/affect, No confusion, No depression, No suicidal, No other Exam/Review of Systems Exam Vitals Vital Signs Date Temp Pulse Resp B/P (MAP) Pulse Ox O2 O2 Flow FiO2 Time Delivery Rate 11/15/18 98.4 78 18 101/70 92 Room Air 07:37 (80) 11/15/18 2.0 00:54 11/13/18 21 21:08 Intake and Output 11/14/18 11/14/18 11/15/18 1515:00 23:00 07:00 IntakeIntake Total 840 ml BalanceBalance 840 ml Constitutional: alert, oriented, well developed, distress, frail, obese; No non-verbal, No other Psych: anxiety; No no complaints, No nl mood/affect, No confusion, No depression, No suicidal, No other Head: normocephalic, atraumatic Eyes: EOMI, nl lids; No nl conjunctiva, No nl sclera, No PERRL, No icteric, No fundi, disc, No other ENMT: No nl external ears & nose, No nl lips & teeth, No nl nasal mucosa & septum, No mucosa pink and moist, No intubated, No tympanic membranes, No other Neck: supple, jvd, nuchal rigidity; No non-tender, No bruits, No masses, No thyromegaly, No other Respiratory: clear to auscultation (On the right side), crackles/rales, diminished breath sounds (Diminished breath sounds with several friction rub on the left side); No normal air movement, No congested cough, No intercostal retraction, No labored breathing, No respirations, No tactile fremitus, No wheezing, No other Cardiovascular: regular rate and rhythm (Rales in the lower left lung area), b ruits, edema (Right lower extremity left upper extremity edema impeding more prominent than left leg and right upper extremity there very mild.); No nl pulses, No diastolic murmur, No gallop, No irregular rhythm, No jugular venous distention (JVD), No murmurs/extra sounds, No rub, No systolic murmur, No S3, No S4, No other Gastrointestinal: soft, bowel sounds Genitourinary - Female: No nl adnexae, No nl external genitalia, No CMT, No CVA tenderness, No uterus, No other Musculoskeletal: joint tenderness, muscle tone, muscle weakness; No nl extremities to inspection, No nl gait and stance, No range of motion, No spine non-tender, No swelling, No other Extremities: normal pulses; No calf tenderness, No cyanosis, No clubbing, No edema, No pitting pedal edema, No palpable cord, No tenderness, No other Neurological: PRIZER HAND 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; No nl mental status, No nl speech, No nl strength, No confused, No DTR's symmetric, No focal weakness, No lethargic, No numbness, No reflexes, No unresponsive, No other Results Results 24hrs Laboratory Tests Test 11/15/18 04:27 Sodium Level 135 Potassium Level 3.7 Chloride Level 98 Carbon Dioxide Level 29 Anion Gap 8 Blood Urea Nitrogen 33 H Creatinine 1.03 H Est Glomerular Filtrat Rate mL/min 55 L Glucose Level 108 Calcium Level 9.1 Phosphorus Level 5.4 H Magnesium Level 2.1 Medications Medication Current Medications Acetaminophen (Tylenol Tab) 650 mg Q4H PRN PO PAIN LEVEL 1-10/10 Last administered on 10/29/18at 17:15; Admin Dose 650 MG; Start 10/21/18 at 23:30 Anastrozole (Arimidex) 1 mg DAILY PO Last administered on 11/14/18at 08:44; Admin Dose 1 MG; Start 10/22/18 at 09:00 Benazepril HCl (Lotensin) 5 mg DAILY PO Last administered on 10/30/18 09:27; Admin Dose 5 MG; Start 10/22/18 at 09:00; Status Hold Bisacodyl (Dulcolax Supp) [address] Last administered on 10/31/18 16:42; Admin Dose 10 MG; Start 10/22/18 at 06:00 Carvedilol (Coreg) 3.125 mg BID PO Last administered on 11/14/18 08:46; Admin Dose 3.125 MG; Start 10/22/18 at 09:00 Docusate Sodium (Colace) 100 mg BID PO Last administered on 11/14/18 21:14; Admin Dose 100 MG; Start 10/22/18 at 09:00 Escitalopram Oxalate (Lexapro) 10 mg DAILY PO Last administered on 11/14/18 08:42; Admin Dose 10 MG; Start 10/22/18 at 09:00 Loratadine (Claritin) 10 mg DAILY PO Last administered on 11/14/18 08:42; Admin Dose 10 MG; Start 10/22/18 at 09:00 Magnesium Hydroxide (Milk Of Mag) 30 ml DAILY PO Last administered on 11/14/18 08:41; Admin Dose 30 ML; Start 10/22/18 at 09:00 Oxycodone HCl (Oxycontin) 20 mg Q12 PO Last administered on 11/14/18 21:16; Admin Dose 20 MG; Start 10/22/18 at 09:00 Pantoprazole (Protonix Tab) 40 mg AC BREAKFAST PO Last administered on 11/15/18 04:38; Admin Dose 40 MG; Start 10/22/18 at 07:25 Polyethylene Glycol (Miralax) 17 gm DAILY PO Last administered on 11/14/18 08:41; Admin Dose 17 GM; Start 10/22/18 at 09:00 Simethicone (Mylicon) 80 mg Q8H PO Last administered on 11/15/18 00:09; Admin Dose 80 MG; Start 10/21/18 at 23:30 Spironolactone (Aldactone) 50 mg DAILY PO Last administered on 11/14/18 08:42; Admin Dose 50 MG; Start 10/22/18 at 09:00 Zolpidem Tartrate (Ambien) 10 mg HS PRN PO INSOMNIA Last administered on 11/11/18 23:03; Admin Dose 5 MG; Start 10/21/18 at 23:30 Morphine Sulfate (morphine) 2 mg Q4H PRN IV SEVERE PAIN LEVEL 7-10 Last administered on 11/15/18 00:14; Admin Dose 2 MG; Start 10/22/18 at 01:30 Phenol (Cepastat Lozenge) 1 lozenge Q1H PRN MT sore throat Last administered on 10/31/18 18:34; Admin Dose 1 LOZENGE; Start 10/27/18 at 21:30 Fluticasone Propionate (Flonase 0.05% Nasal) 1 spray BID NASAL Last administered on 11/13/18 21:27; Admin Dose 1 SPRAY; Start 10/29/18 at 21:00 Budesonide (Pulmicort (Neb)) 0.5 mg BID RESP THERAPY HHN Last administered on 11/14/18 20:56; Admin Dose 0.5 MG; Start 10/30/18 at 09:00 Metolazone (Zaroxolyn) 2.5 mg BID@0530,1730 PO Last administered on 11/15/18 04:40; Admin Dose 2.5 MG; Start 11/01/18 at 05:30 Furosemide (Lasix) 40 mg BID DIURETICS IV Last administered on 11/12/18 06:04; Admin Dose 40 MG; Start 11/01/18 at 18:00; Status Hold Guaifenesin/ Codeine Phosphate (Robitussin Ac Liquid Cup) 10 ml Q4 PO Last administered on 11/15/18 04:34; Admin Dose 10 ML; Start 11/02/18 at 09:00 Enoxaparin Sodium (Lovenox) 40 mg DAILY SC Last administered on 11/14/18 12:30; Admin Dose 40 MG; Start 11/02/18 at 09:00 Ibuprofen (Motrin) 400 mg Q6H PRN PO MILD PAIN(1-3) OR TEMP>38C; Start 11/07/18 at 12:20 Albuterol/ Ipratropium (Duoneb) 3 ml Q8H RESP THERAPY PRN HHN SHORTNESS OF BREATH; Start 11/10/18 at 20:00 Potassium Chloride (Klor-Con 20) 20 meq BID PO Last administered on 11/14/18at 21:15; Admin Dose 20 MEQ; Start 11/11/18 at 09:00 RUSS JEROME MD November 15, 2018 08:54
[2018-11-15] MEDS: MAGNESIUM HYDROXIDE 30ML CUP PO SCH (09:00)
[2018-11-15] MEDS: FLUTICASONE 0.05% 16 GM NAS SPRAY NASAL SCH ×2 (09:00→21:00)
[2018-11-15] MEDS: BUDESONIDE (NEB) 0.5MG/2ML AMP HHN SCH ×2 (09:00→21:19)
[2018-11-15] MEDS: SPIRONOLACTONE 50 MG TAB PO SCH (09:03)
[2018-11-15] MEDS: LORATADINE 10 MG TAB PO SCH (09:03)
[2018-11-15] MEDS: POTASSIUM CHLORIDE (SR) 20 MEQ TAB PO SCH ×2 (09:03→21:49)
[2018-11-15] MEDS: oxyCODONE (CR) 20 MG TAB [oxyCONTIN] PO SCH ×2 (09:03→21:48)
[2018-11-15] MEDS: DOCUSATE SODIUM 100 MG CAP PO SCH ×2 (09:04→21:49)
[2018-11-15] MEDS: ESCITALOPRAM 10 MG TAB PO SCH (09:04)
[2018-11-15] MEDS: POLYETHYLENE GLYCOL 17 GM PACKET PO SCH (09:05)
[2018-11-15] MEDS: ANASTROZOLE 1 MG TAB PO SCH (09:07)
[2018-11-15] MEDS: ENOXAPARIN 40 MG/0.4 ML SYG SC SCH (09:12)
--- NOTE | 2018-11-15 13:47 | PN ---
DATE: 11/15/2018 SUBJECTIVE: The patient is stable. No events overnight. No fevers, chills, nausea, vomiting. No s hortness of breath. OBJECTIVE: VITAL SIGNS: Blood pressure is 101/70, respiration 18, pulse 78, temperature 98.4. HEENT: Head is normocephalic. NECK: Supple. HEART: Regular rate. LUNGS: Show diminished breath sounds at the base. ABDOMEN: Soft, nontender to palpation without rebound or guarding. EXTREMITIES: Negative for clubbing, cyanosis. Trace edema. DERMATOLOGIC: No rashes. MUSCULOSKELETAL: No joint effusion. NEUROLOGIC: No change in exam. MEDICATIONS: Have been reviewed. LABORATORY DATA: Have been reviewed. ASSESSMENT AND PLAN: 1. Volume overload. Etiology is secondary to diastolic heart failure. Questionable portal hyperten robinson due to metastatic disease, questionable lymphangitic spread. The patient is nearing euvolemic s tatus. Continue current diuretic regimen, adjust as needed. Monitor renal function and electrolytes closely. 2. Metabolic alkalemia secondary to hypokalemia and diuretic therapy, improving. The patient has co mpleted a course of Diamox. Continue to monitor. 3. Hypokalemia. Continue to monitor and replete as needed. 4. Nonoliguric acute kidney injury. Etiology is secondary to hemodynamics. Renal function is fluct uating, but improving. Continue to monitor. 5. Status post breast cancer with metastasis to the liver and spine. Continue to monitor. 6. Hip fracture, status post arthroplasty. 7. Pleural effusion, status post thoracentesis. 8. Chronic pain syndrome. 9. Status post bronchitis. Dictated By: ANDRÉS TATUM DO NR/KEANU Conf#: [id number] DID#: [id number] CC: RUSS JEROME MD;*EndCC*
[2018-11-15 16:00] VITALS: BP 117/82; PULSE 85; RESP 18
--- NOTE | 2018-11-15 16:34 | CONS ---
Assessment/Plan Assessment/Plan Hospital Course (Demo Recall) IMPRESSION: 1. Congestive heart failure exacerbation would be diastolic, acute on chronic by most recent echo.-now s/p echo this admit with EF 60/small effusion 2. Abnormal electrocardiogram with low voltage, rule out pericardial effusion. 3. Hypertension-currently borderline hypotension 4. Metastatic breast carcinoma. 5. History of pathologic fractures of the leg, status post open reduction and internal fixation. 6. Anemia. 7. Increased BNP consistent with patient's congestive heart failure. 8. Pericardial effusion-small by echo 9. Edema-LE venous UTZneg for DVT 10. Hypokalemia-s/p repletion today/on aldactone Recc: -On med-surg -Continued on metolazone and aldactone and now PO bumex with overall significantly improved volume status and resolution of much of LLE edema but s till ongoing assymetric LE edema in leg with fractures -renal and onc following -Continue current coreg as tolerated only and continue to hold benazepril at this time and follow BP closely -follow K clsoely on aldactone -D/C planning-awaiting placement Consultation Date/Type/Reason Admit Date/Time October 21, 2018 at 17:39 Initial Consult Date 10/21/18 Type of Consult Cardiology Reason for Consultation CHF Requesting Provider: RUSS JEROME MD Date/Time of Note DATE: 11/15/18 TIME: 16:30 Exam/Review of Systems Vital Signs Vitals Vital Signs Date Temp Pulse Resp B/P (MAP) Pulse Ox O2 O2 Flow FiO2 Time Delivery Rate 11/15/18 98.4 85 18 117/82 95 Room Air 16:00 (94) 11/15/18 2.0 00:54 11/13/18 21 21:08 Intake and Output 11/14/18 11/14/18 11/15/18 1515:00 23:00 07:00 IntakeIntake Total 840 ml BalanceBalance 840 ml Exam Exam Review of Systems: CONSTITUTIONAL: No fevers, chills. PULMONARY: No sob CARDIOVASCULAR: No chest pain/palpitations GASTROINTESTINAL: No nausea/vomiting. GENITOURINARY: No hematuria/dysuria. MUSCULOSKELETAL: No myagias/arthalgias. PSYCHIATRIC: The patient denies depression. NEUROLOGIC: No weakness Psych: no complaints Head: normocephalic ENMT: mucosa pink and moist Neck: supple, jvd (9 cm water) Respiratory: diminished breath sounds Cardiovascular: regular rate and rhythm Gastrointestinal: soft, non-tender Musculoskeletal: muscle tone (normal) Extremities: edema (R>>L) Neurological: other (No focal deficits) Labs Result Diagram: 11/15/18 0427 Results 24hrs Laboratory Tests Test 11/15/18 04:27 Sodium Level 135 Potassium Level 3.7 Chloride Level 98 Carbon Dioxide Level 29 Anion Gap 8 Blood Urea Nitrogen 33 H Creatinine 1.03 H Est Glomerular Filtrat Rate mL/min 55 L Glucose Level 108 Calcium Level 9.1 Phosphorus Level 5.4 H Magnesium Level 2.1 Medications Medications Current Medications Acetaminophen (Tylenol Tab) 650 mg Q4H PRN PO PAIN LEVEL 1-1010 Last administered on 10/29/18 17:15; Admin Dose 650 MG; Start 10/21/18 at 23:30 Anastrozole (Arimidex) 1 mg DAILY PO Last administered on 11/15/18 09:07; Admin Dose 1 MG; Start 10/22/18 at 09:00 Benazepril HCl (Lotensin) 5 mg DAILY PO Last administered on 10/30/18 09:27; Admin Dose 5 MG; Start 10/22/18 at 09:00; Status Hold Bisacodyl (Dulcolax Supp) 10 mg Q8 RI Last administered on 10/31/18 16:42; Admin Dose 10 MG; Start 10/22/18 at 06:00 Carvedilol (Coreg) 3.125 mg BID PO Last administered on 11/15/18 09:05; Admin Dose 3.125 MG; Start 10/22/18 at 09:00 Docusate Sodium (Colace) 100 mg BID PO Last administered on 11/15/18 09:04; Admin Dose 100 MG; Start 10/22/18 at 09:00 Escitalopram Oxalate (Lexapro) 10 mg DAILY PO Last administered on 11/15/18 09:04; Admin Dose 10 MG; Start 10/22/18 at 09:00 Loratadine (Claritin) 10 mg DAILY PO Last administered on 11/15/18 09:03; Admin Dose 10 MG; Start 10/22/18 at 09:00 Magnesium Hydroxide (Milk Of Mag) 30 ml DAILY PO Last administered on 11/14/18 08:41; Admin Dose 30 ML; Start 10/22/18 at 09:00 Oxycodone HCl (Oxycontin) 20 mg Q12 PO Last administered on 11/15/18 09:03; Admin Dose 20 MG; Start 10/22/18 at 09:00 Pantoprazole (Protonix Tab) 40 mg AC BREAKFAST PO Last administered on 11/15/18 04:38; Admin Dose 40 MG; Start 10/22/18 at 07:25 Polyethylene Glycol (Miralax) 17 gm DAILY PO Last administered on 11/15/18 09:05; Admin Dose 17 GM; Start 10/22/18 at 09:00 Simethicone (Mylicon) 80 mg Q8H PO Last administered on 11/15/18 16:12; Admin Dose 80 MG; Start 10/21/18 at 23:30 Spironolactone (Aldactone) 50 mg DAILY PO Last administered on 11/15/18 09:03; Admin Dose 50 MG; Start 10/22/18 at 09:00 Zolpidem Tartrate (Ambien) 10 mg HS PRN PO INSOMNIA Last administered on 11/11/18 23:03; Admin Dose 5 MG; Start 10/21/18 at 23:30 Morphine Sulfate (morphine) 2 mg Q4H PRN IV SEVERE PAIN LEVEL 7-10 Last administered on 11/15/18 00:14; Admin Dose 2 MG; Start 10/22/18 at 01:30 Phenol (Cepastat Lozenge) 1 lozenge Q1H PRN MT sore throat Last administered on 10/31/18 18:34; Admin Dose 1 LOZENGE; Start 10/27/18 at 21:30 Fluticasone Propionate (Flonase 0.05% Nasal) 1 spray BID NASAL Last administered on 11/13/18 21:27; Admin Dose 1 SPRAY; Start 10/29/18 at 21:00 Budesonide (Pulmicort (Neb)) 0.5 mg BID RESP THERAPY HHN Last administered on 11/14/18 20:56; Admin Dose 0.5 MG; Start 10/30/18 at 09:00 Metolazone (Zaroxolyn) 2.5 mg BID@3730,3290 PO Last administered on 5/31/19at 04:40; Admin Dose 2.5 MG; Start 11/01/18 at 05:30 Guaifenesin/ Codeine Phosphate (Robitussin Ac Liquid Cup) 10 ml Q4 PO Last administered on 11/15/18at 13:29; Admin Dose 10 ML; Start 11/02/18 at 09:00 Enoxaparin Sodium (Lovenox) 40 mg DAILY SC Last administered on 11/15/18at 09:12; Admin Dose 40 MG; Start 11/02/18 at 09:00 Ibuprofen (Motrin) 400 mg Q6H PRN PO MILD PAIN(1-3) OR TEMP>38C; Start 11/07/18 at 12:20 Albuterol/ Ipratropium (Duoneb) 3 ml Q8H RESP THERAPY PRN HHN SHORTNESS OF BREATH; Start 11/10/18 at 20:00 Potassium Chloride (Klor-Con 20) 20 meq BID PO Last administered on 11/15/18at 09:03; Admin Dose 20 MEQ; Start 11/11/18 at 09:00 Bumetanide (Bumex) 1 mg BID DIURETICS PO ; Start 11/15/18 at 18:00 KAMILA TERESA November 15, 2018 16:34
[2018-11-15] MEDS: BUMETANIDE 1 MG TAB PO SCH (17:29)
[2018-11-15 19:50] VITALS: BP 104/59; PULSE 81; RESP 20
[2018-11-15] MEDS: ACETAMINOPHEN 325 MG TAB PO PRN (22:31)
--- NOTE | 2018-11-15 23:26 | CONS ---
Assessment/Plan Assessment/Plan Hospital Course (Demo Recall) METASTATIC BREAST CANCER WITH PRIMARY ADENOCARCINOMA IN the left breast. MULTIPLE BONY METS, PULMONARY METS, LIVER METS CHEMO ON HOLD PT HAS A VERY GOOD RESPONSE TO CHEMO AND AI CONT AI FOR NOW CT ABD FOR RESTAGING 08.27.18- noted , stable Leukopenia- post chemo, FLUCTUATING WITH RECENT WORSENING- post NEUPOGEN monitor closely post Neutropenia with occasional fever and chills. - resolved Anemia chronic disease SOB PLEURAL EFFUSIONS, NEG CYTOLOGY POST thoracentesis Fluid overload diuretic cardiology F-UP Severe pain in the interscapular and lumbar sacral area most probably metastatic lesion possible femoral fracture. pathologic fracture of T9 with 60% of loss of height. Bony pain with multiple bony mets post XRT d/w dr Ocampo Obesity. Weight loss 60 pounds during the last 2 years COUGH, Upper respiratory infection pharyngitis with dry cough. POST ATB PMS. Myopia. Anxiety disorder. Claustrophobia. Posttraumatic stress disorder. Pain in the left forearm with a history of fracture of ulna and radius. Tachycardia Hypoxemia at night marginal improved after 2 L of nasal cannula oxygen. Deconditioning Pain syndrome. Today the most painful zone is in the right hip area. X-ray did not show any fractures. Hyponatremia- resolved Hypoalbuminemia Right sided cp after catheter insertion and correction less discomfort. Decreased edema both lower extremities with hypotension-improving Swelling of the left forearm-persist. Consultation Date/Type/Reason Admit Date/Time October 21, 2018 at 17:39 Initial Consult Date 10/21/18 Type of Consult [facility] Requesting Provider: RUSS JEROME MD Date/Time of Note DATE: 11/15/18 TIME: 23:26 24 HR Interval Summary Free Text/Dictation nad all noted d/w staff Exam/Review of Systems Exam Vitals Vital Signs Date Temp Pulse Resp B/P (MAP) Pulse Ox O2 O2 Flow FiO2 Time Delivery Rate 11/15/18 84 19 94 21 21:21 11/15/18 98.8 104/59 Room Air 19:50 (74) 11/15/18 2.0 00:54 Intake and Output 11/14/18 11/14/18 11/15/18 1515:00 23:00 07:00 IntakeIntake Total 840 ml BalanceBalance 840 ml Exam HEENT: Head is normocephalic. NECK: Supple. HEART: Regular rate. LUNGS: Show diminished breath sounds at the base., COARSE, FEW RHONCHI ABDOMEN: Soft, nontender to palpation without rebound or guarding. EXTREMITIES: Negative for clubbing, cyanosis. Positive edema, improving. DERMATOLOGIC: No rashes. MUSCULOSKELETAL: No joint effusion. NEUROLOGIC: No change in exam. Results Result Diagram: 11/15/18 0427 Results 24hrs Laboratory Tests Test 11/15/18 04:27 Sodium Level 135 Potassium Level 3.7 Chloride Level 98 Carbon Dioxide Level 29 Anion Gap 8 Blood Urea Nitrogen 33 H Creatinine 1.03 H Est Glomerular Filtrat Rate mL/min 55 L Glucose Level 108 Calcium Level 9.1 Phosphorus Level 5.4 H Magnesium Level 2.1 Medications Medication Current Medications Acetaminophen (Tylenol Tab) 650 mg Q4H PRN PO PAIN LEVEL 1-1010 Last administered on 11/15/18 22:31; Admin Dose 650 MG; Start 10/21/18 at 23:30 Anastrozole (Arimidex) 1 mg DAILY PO Last administered on 11/15/18 09:07; Admin Dose 1 MG; Start 10/22/18 at 09:00 Benazepril HCl (Lotensin) 5 mg DAILY PO Last administered on 10/30/18 09:27; Admin Dose 5 MG; Start 10/22/18 at 09:00; Status Hold Bisacodyl (Dulcolax Supp) 10 mg Q8 [place] Last administered on 10/31/18 16:42; Admin Dose 10 MG; Start 10/22/18 at 06:00 Carvedilol (Coreg) 3.125 mg BID PO Last administered on 11/15/18 09:05; Admin Dose 3.125 MG; Start 10/22/18 at 09:00 Docusate Sodium (Colace) 100 mg BID PO Last administered on 11/15/18 21:49; Admin Dose 100 MG; Start 10/22/18 at 09:00 Escitalopram Oxalate (Lexapro) 10 mg DAILY PO Last administered on 11/15/18 09:04; Admin Dose 10 MG; Start 10/22/18 at 09:00 Loratadine (Claritin) 10 mg DAILY PO Last administered on 11/15/18 09:03; Admin Dose 10 MG; Start 10/22/18 at 09:00 Magnesium Hydroxide (Milk Of Mag) 30 ml DAILY PO Last administered on 11/14/18 08:41; Admin Dose 30 ML; Start 10/22/18 at 09:00 Oxycodone HCl (Oxycontin) 20 mg Q12 PO Last administered on 11/15/18 21:48; Admin Dose 20 MG; Start 10/22/18 at 09:00 Pantoprazole (Protonix Tab) 40 mg AC BREAKFAST PO Last administered on 11/15/18 04:38; Admin Dose 40 MG; Start 10/22/18 at 07:25 Polyethylene Glycol (Miralax) 17 gm DAILY PO Last administered on 11/15/18 09:05; Admin Dose 17 GM; Start 10/22/18 at 09:00 Simethicone (Mylicon) 80 mg Q8H PO Last administered on 11/15/18 16:12; Admin Dose 80 MG; Start 10/21/18 at 23:30 Spironolactone (Aldactone) 50 mg DAILY PO Last administered on 11/15/18 09:03; Admin Dose 50 MG; Start 10/22/18 at 09:00 Zolpidem Tartrate (Ambien) 10 mg HS PRN PO INSOMNIA Last administered on 11/11/18 23:03; Admin Dose 5 MG; Start 10/21/18 at 23:30 Morphine Sulfate (morphine) 2 mg Q4H PRN IV SEVERE PAIN LEVEL 7-10 Last administered on 11/15/18 00:14; Admin Dose 2 MG; Start 10/22/18 at 01:30 Phenol (Cepastat Lozenge) 1 lozenge Q1H PRN MT sore throat Last administered on 10/31/18 18:34; Admin Dose 1 LOZENGE; Start 10/27/18 at 21:30 Fluticasone Propionate (Flonase 0.05% Nasal) 1 spray BID NASAL Last administered on 11/13/18 21:27; Admin Dose 1 SPRAY; Start 10/29/18 at 21:00 Budesonide (Pulmicort (Neb)) 0.5 mg BID RESP THERAPY HHN Last administered on 11/15/18 21:19; Admin Dose 0.5 MG; Start 10/30/18 at 09:00 Metolazone (Zaroxolyn) 2.5 mg BID@0530,5220 PO Last administered on 11/15/18 17:28; Admin Dose 2.5 MG; Start 11/01/18 at 05:30 Guaifenesin/ Codeine Phosphate (Robitussin Ac Liquid Cup) 10 ml Q4 PO Last administered on 11/15/18 21:48; Admin Dose 10 ML; Start 11/02/18 at 09:00 Enoxaparin Sodium (Lovenox) 40 mg DAILY SC Last administered on 11/15/18 09:12; Admin Dose 40 MG; Start 11/02/18 at 09:00 Ibuprofen (Motrin) 400 mg Q6H PRN PO MILD PAIN(1-3) OR TEMP>38C; Start 11/07/18 at 12:20 Albuterol/ Ipratropium (Duoneb) 3 ml Q8H RESP THERAPY PRN HHN SHORTNESS OF BREATH; Start 11/10/18 at 20:00 Potassium Chloride (Klor-Con 20) 20 meq BID PO Last administered on 11/15/18at 21:49; Admin Dose 20 MEQ; Start 11/11/18 at 09:00 Bumetanide (Bumex) 1 mg BID DIURETICS PO Last administered on 11/15/18 17:29; Admin Dose 1 MG; Start 11/15/18 at 18:00 DES DUNAWAY MD November 15, 2018 23:26
[2018-11-16] MEDS: GUAIFENESIN/CODEINE 5ML CUP PO SCH ×6 (01:00→21:00)
[2018-11-16 02:50] VITALS: BP 121/70; PULSE 84; RESP 20
[2018-11-16] MEDS: METOLAZONE 2.5 MG TAB PO SCH ×2 (05:34→17:18)
[2018-11-16] MEDS: BISACODYL 10 MG SUPP PR SCH ×3 (06:00→22:00)
[2018-11-16] MEDS: BUMETANIDE 1 MG TAB PO SCH ×2 (06:02→18:06)
[2018-11-16] MEDS: PANTOPRAZOLE (EC) 40 MG TAB PO SCH (06:03)
[2018-11-16 07:37] VITALS: BP 108/70; PULSE 79; RESP 15
[2018-11-16] MEDS: BUDESONIDE (NEB) 0.5MG/2ML AMP HHN SCH ×2 (08:23→19:31)
[2018-11-16] MEDS: FLUTICASONE 0.05% 16 GM NAS SPRAY NASAL SCH ×2 (08:41→21:00)
[2018-11-16 08:45] VITALS: BP 117/70; PULSE 81
[2018-11-16] MEDS: MAGNESIUM HYDROXIDE 30ML CUP PO SCH (08:47)
[2018-11-16] MEDS: SPIRONOLACTONE 50 MG TAB PO SCH (08:47)
[2018-11-16] MEDS: POLYETHYLENE GLYCOL 17 GM PACKET PO SCH (08:47)
[2018-11-16] MEDS: DOCUSATE SODIUM 100 MG CAP PO SCH ×2 (08:47→20:30)
[2018-11-16] MEDS: POTASSIUM CHLORIDE (SR) 20 MEQ TAB PO SCH ×2 (08:48→20:30)
[2018-11-16] MEDS: LORATADINE 10 MG TAB PO SCH (08:48)
[2018-11-16] MEDS: ESCITALOPRAM 10 MG TAB PO SCH (08:48)
[2018-11-16] MEDS: oxyCODONE (CR) 20 MG TAB [oxyCONTIN] PO SCH ×2 (08:48→20:27)
[2018-11-16] MEDS: ANASTROZOLE 1 MG TAB PO SCH (08:52)
[2018-11-16] MEDS: ENOXAPARIN 40 MG/0.4 ML SYG SC SCH (08:52)
--- NOTE | 2018-11-16 09:21 | PN ---
Date/Time of Note Date/Time of Note DATE: 11/16/18 TIME: 09:20 Assessment/Plan VTE Prophylaxis Risk score (from Nsg)>0 risk: 7 SCD applied (from Nsg): Yes SCD contraindicated: other (on.) Pharmacological prophylaxis: other (more active pt/ot and walking.) Lines/Catheters IV Catheter Type (from Nrsg): Peripheral IV Central line still needed: Yes Urinary Cath still in place: No Reason Cath still needed: urinary retention Assessment/Plan Hospital Course Rrecurrent thoracentesis from left pleural cavity.Bronchitis got treated slowly. CHF improved but not totally gone. Continue current chemotherapy bronchodilator therapy correction of fluid his electrolytes and follow the algorithm for a total synthesis planning. Assessment/Plan Rrecurrent thoracentesis from left pleural cavity.Bronchitis got treated slowly. CHF improved but not totally gone. Continue current chemotherapy bronchodilator therapy correction of fluid his electrolytes and follow the algorithm for a total synthesis planning. Assessment/Plan 1. PRIMARY ADENOCARCINOMA of the left breast. MULTIPLE BONY METS, PULMONARY METS;LIVER METS CHEMO ON HOLD; PT HAS A VERY GOOD RESPONSE TO CHEMO AND AI 2. Severe pain in the interscapular and lumbar sacral area most probably metastatic lesion possible femoral fracture. pathologic fracture of T9 with 60% of loss of height. Neurosurgical f/u. 3. Obesity. 4. Weight loss 60 pounds during the last 2 years by diet 5. PMS. 6. Myopia. 7. Anemia chronic disease with a drop of her hematocrit to 27; Latest results 28. Will recheck tomorrow;Leukopenia.Thrombocytopenia; 8. Anxiety disorder. Claustrophobia. Increase Ativan to 1 mg every 8 as needed at Lexapro 10 mg daily. 9. Posttraumatic stress disorder. 10. Pain in the left forearm with a history of fracture of ulna and radius. 11. Tachycardia-resolved 12. Hypoxemia at night marginal improved after 2 L of nasal cannula oxygen. 13. Deconditioning 14. 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 MRI: 09/28/18:diffuse osseous metastatic disease with multiple pathologic compression fractures at least involving the T4, T5, T7, T9 and T11 levels. There is likely mild cortical breakthrough at several levels resulting in mild central canal narrowing. No gross evidence of cord compression is seen.. 15. Pain syndrome. Today the most painful zone is in the right hip area. 16. Hyponatremia-corrected; today and hold Aldactone today. 17. Leucopenia-improved. 18. Neutropenia with occasional fever and chills. Last chemotherapy 5 days ago. 19. Hypoalbuminemia. 20.Right sided cp after catheter insertion and correction less discomfort. 21. Decreased edema both lower extremities with [id number] with Pleural and Pericardial effusion. 22. pain syndrome 23.bilateral pleural effusions ; s/p recurrent left thoracentesis Reaccumulation of the pleural fluid. 24. Systolic over diastolic congestive heart failure with a right more than left lower extremity swelling with no DVT in latest venous Doppler. 25. Swelling of the left forearm-persist. Cellulitis of the left forearm with decreased edema anteriorly.-Today it is less edematous 26. Pathologic fracture of the right hip;s/p hemiarthroplasty of right hip . 27. Dizziness 28. Chills. 29. Memory impairment. 30. Upper respiratory infection pharyngitis with dry cough. 31. Decreased voice with wheezing. 32. Headaches 33. Hypokalemia Result Diagram: 11/16/18 0444 Results 24hrs Laboratory Tests Test 11/16/18 04:44 Sodium Level 136 Potassium Level 3.5 Chloride Level 99 Carbon Dioxide Level 31 Anion Gap 6 Blood Urea Nitrogen 35 H Creatinine 1.03 H Est Glomerular Filtrat Rate mL/min 55 L Glucose Level 127 Calcium Level 9.0 Phosphorus Level 5.6 H Magnesium Level 2.0 Subjective 24 Hr Interval Summary Free Text/Dictation right hip pain while walking. Sob improved. Subjective hx not possible: pt critical status Constitutional: improved; No no complaints, No chills, No diaphoresis, No disoriented, No febrile, No poor po, No requiring IVF, No requiring O2, No other Eyes: No no complaints, No pain, No discharge, No redness, No visual change, No other ENT: No no complaints, No bleeding, No pain, No congestion, No discharge, No dysphagia, No sore throat, No other Respiratory: No no complaints, No pain, No pleuritic pain, No shortness of breath, No sputum, No wheezing, No other Cardiovascular: chest pain, edema; No no complaints, No lightheadedness, No orthopenea, No palpitations, No paroxysmal nocturnal dyspnea, No other Gastrointestinal: constipation; No no complaints, No pain, No blood, No decreased appetite, No diarrhea, No flatus, No nausea, No passing stool, No vomiting, No other Genitourinary: dysuria; No no complaints, No bleeding, No discharge, No flank pain, No hematuria, No other Musculoskeletal: back pain, bone/joint pain Skin: No no complaints, No bruising, No erythema, No laceration, No pruritis, No rash, No skin lesions, No other Exam/Review of Systems Exam Vitals Vital Signs Date Temp Pulse Resp B/P (MAP) Pulse Ox O2 O2 Flow FiO2 Time Delivery Rate 11/16/18 81 117/70 08:45 (86) 11/16/18 98.1 15 100 Room Air 07:37 11/15/18 21 21:21 11/15/18 2.0 00:54 Intake and Output 11/15/18 11/15/18 11/16/18 1515:00 23:00 07:00 IntakeIntake Total 540 ml 900 ml 180 ml OutputOutput Total 350 ml 700 ml BalanceBalance 540 ml 550 ml -520 ml Constitutional: alert, oriented, well developed, distress, frail Psych: anxiety; No no complaints, No nl mood/affect, No confusion, No depression, No suicidal , No other Head: normocephalic, atraumatic; No lacerations, No hematomas, No other Eyes: EOMI, nl lids, PERRL; No nl conjunctiva, No nl sclera, No icteric, No fundi, disc, No other ENMT: nl external ears & nose, nl lips & teeth, nl nasal mucosa & septum; No mucosa pink and moist, No intubated, No tympanic membranes, No other Neck: No supple, No non-tender, No jvd, No bruits, No masses, No thyromegaly, N o nuchal rigidity, No other Respiratory: clear to auscultation (on the right. Friction rub of the posterior inferior side.), normal air movement, diminished breath sounds; No congested cough, No crackles/rales, No intercostal retraction, No labored breathing, No respirations, No tactile fremitus, No wheezing, No other Cardiovascular: regular rate and rhythm; No nl pulses, No bruits, No diastolic murmur, No edema, No gallop, No irregular rhythm, No jugular venous distention (JVD), No murmurs/extra sounds, No rub, No systolic murmur, No S3, No S4, No other Gastrointestinal: soft, nl liver, spleen, non-tender, bowel sounds; No ascites, No distended, No firm, No hepatomegaly, No mass, No rebound or guarding, No splenomegaly, No surgical scars, No tender, No other Genitourinary - Female: No nl adnexae, No nl external genitalia, No CMT, No CVA tenderness, No uterus, No other Musculoskeletal: No nl extremities to inspection, No nl gait and stance, No joint tenderness, No muscle tone, No muscle weakness, No range of motion, No spine non-tender, No swelling, No other Results Results 24hrs Laboratory Tests Test 11/16/18 04:44 Sodium Level 136 Potassium Level 3.5 Chloride Level 99 Carbon Dioxide Level 31 Anion Gap 6 Blood Urea Nitrogen 35 H Creatinine 1.03 H Est Glomerular Filtrat Rate mL/min 55 L Glucose Level 127 Calcium Level 9.0 Phosphorus Level 5.6 H Magnesium Level 2.0 Medications Medication Current Medications Acetaminophen (Tylenol Tab) 650 mg Q4H PRN PO PAIN LEVEL 1-10/10 Last administered on 11/15/18 22:31; Admin Dose 650 MG; Start 10/21/18 at 23:30 Anastrozole (Arimidex) 1 mg DAILY PO Last administered on 11/16/18 08:52; Admin Dose 1 MG; Start 10/22/18 at 09:00 Benazepril HCl (Lotensin) 5 mg DAILY PO Last administered on 10/30/18 09:27; Admin Dose 5 MG; Start 10/22/18 at 09:00; Status Hold Bisacodyl (Dulcolax Supp) 10 mg Q8 PA Last administered on 10/31/18 16:42; Admin Dose 10 MG; Start 10/22/18 at 06:00 Carvedilol (Coreg) 3.125 mg BID PO Last administered on 11/16/18 08:48; Admin Dose 3.125 MG; Start 10/22/18 at 09:00 Docusate Sodium (Colace) 100 mg BID PO Last administered on 11/16/18 08:47; Admin Dose 100 MG; Start 10/22/18 at 09:00 Escitalopram Oxalate (Lexapro) 10 mg DAILY PO Last administered on 11/16/18 08:48; Admin Dose 10 MG; Start 10/22/18 at 09:00 Loratadine (Claritin) 10 mg DAILY PO Last administered on 11/16/18 08:48; Admin Dose 10 MG; Start 10/22/18 at 09:00 Magnesium Hydroxide (Milk Of Mag) 30 ml DAILY PO Last administered on 11/14/18 08:41; Admin Dose 30 ML; Start 10/22/18 at 09:00 Oxycodone HCl (Oxycontin) 20 mg Q12 PO Last administered on 11/16/18 08:48; Admin Dose 20 MG; Start 10/22/18 at 09:00 Pantoprazole (Protonix Tab) 40 mg AC BREAKFAST PO Last administered on 11/16/18 06:03; Admin Dose 40 MG; Start 10/22/18 at 07:25 Polyethylene Glycol (Miralax) 17 gm DAILY PO Last administered on 11/16/18 08:47; Admin Dose 17 GM; Start 10/22/18 at 09:00 Simethicone (Mylicon) 80 mg Q8H PO Last administered on 11/15/18 16:12; Admin Dose 80 MG; Start 10/21/18 at 23:30 Spironolactone (Aldactone) 50 mg DAILY PO Last administered on 11/16/18 08:47; Admin Dose 50 MG; Start 10/22/18 at 09:00 Zolpidem Tartrate (Ambien) 10 mg HS PRN PO INSOMNIA Last administered on 11/11/18 23:03; Admin Dose 5 MG; Start 10/21/18 at 23:30 Morphine Sulfate (morphine) 2 mg Q4H PRN IV SEVERE PAIN LEVEL 7-10 Last administered on 11/15/18 00:14; Admin Dose 2 MG; Start 10/22/18 at 01:30 Phenol (Cepastat Lozenge) 1 lozenge Q1H PRN MT sore throat Last administered on 10/31/18 18:34; Admin Dose 1 LOZENGE; Start 10/27/18 at 21:30 Fluticasone Propionate (Flonase 0.05% Nasal) 1 spray BID NASAL Last administered on 11/13/18 21:27; Admin Dose 1 SPRAY; Start 10/29/18 at 21:00 Budesonide (Pulmicort (Neb)) 0.5 mg BID RESP THERAPY HHN Last administered on 11/15/18at 21:19; Admin Dose 0.5 MG; Start 10/30/18 at 09:00 Metolazone (Zaroxolyn) 2.5 mg BID@0530,1730 PO Last administered on 11/16/18 05:34; Admin Dose 2.5 MG; Start 11/01/18 at 05:30 Guaifenesin/ Codeine Phosphate (Robitussin Ac Liquid Cup) 10 ml Q4 PO Last administered on 11/16/18at 08:47; Admin Dose 10 ML; Start 11/02/18 at 09:00 Enoxaparin Sodium (Lovenox) 40 mg DAILY SC Last administered on 11/16/18at 08:52; Admin Dose 40 MG; Start 11/02/18 at 09:00 Ibuprofen (Motrin) 400 mg Q6H PRN PO MILD PAIN(1-3) OR TEMP>38C; Start 11/07/18 at 12:20 Albuterol/ Ipratropium (Duoneb) 3 ml Q8H RESP THERAPY PRN HHN SHORTNESS OF BREATH; Start 11/10/18 at 20:00 Potassium Chloride (Klor-Con 20) 20 meq BID PO Last administered on 11/16/18at 08:48; Admin Dose 20 MEQ; Start 11/11/18 at 09:00 Bumetanide (Bumex) 1 mg BID DIURETICS PO Last administered on 11/16/18at 06:02; Admin Dose 1 MG; Start 11/15/18 at 18:00 RUSS JEROME MD Nov 16, 2018 09:21
--- NOTE | 2018-11-16 12:02 | CONS ---
Consultation Date/Type/Reason Admit Date/Time October 21, 2018 at 17:39 Initial Consult Date 10/21/18 Type of Consult Cardiology Requesting Provider: RUSS JEROME MD Date/Time of Note DATE: 11/16/18 TIME: 12:02 24 HR Interval Summary Free Text/Dictation NO acute events - Vs reviewed, Exam/Review of Systems Vital Signs Vitals Vital Signs Date Temp Pulse Resp B/P (MAP) Pulse Ox O2 O2 Flow FiO2 Time Delivery Rate 11/16/18 81 117/70 08:45 (86) 11/16/18 98.1 15 100 Room Air 07:37 11/15/18 21 21:21 11/15/18 2.0 00:54 Intake and Output 11/15/18 11/15/18 11/16/18 1515:00 23:00 07:00 IntakeIntake Total 540 ml 900 ml 180 ml OutputOutput Total 350 ml 700 ml BalanceBalance 540 ml 550 ml -520 ml Labs Result Diagram: 11/16/18 0444 Results 24hrs Laboratory Tests Test 11/16/18 04:44 Sodium Level 136 Potassium Level 3.5 Chloride Level 99 Carbon Dioxide Level 31 Anion Gap 6 Blood Urea Nitrogen 35 H Creatinine 1.03 H Est Glomerular Filtrat Rate mL/min 55 L Glucose Level 127 Calcium Level 9.0 Phosphorus Level 5.6 H Magnesium Level 2.0 Medications Medications Current Medications Acetaminophen (Tylenol Tab) 650 mg Q4H PRN PO PAIN LEVEL 1-10/10 Last administered on 11/15/18at 22:31; Admin Dose 650 MG; Start 10/21/18 at 23:30 Anastrozole (Arimidex) 1 mg DAILY PO Last administered on 11/16/18at 08:52; Admin Dose 1 MG; Start 10/22/18 at 09:00 Benazepril HCl (Lotensin) 5 mg DAILY PO Last administered on 10/30/18at 09:27; Admin Dose 5 MG; Start 10/22/18 at 09:00; Status Hold Bisacodyl (Dulcolax Supp) 10 mg Q8 [place] Last administered on 10/31/18at 16:42; Admin Dose 10 MG; Start 10/22/18 at 06:00 Carvedilol (Coreg) 3.125 mg BID PO Last administered on 11/16/18at 08:48; Admin Dose 3.125 MG; Start 10/22/18 at 09:00 Docusate Sodium (Colace) 100 mg BID PO Last administered on 11/16/18 08:47; Admin Dose 100 MG; Start 10/22/18 at 09:00 Escitalopram Oxalate (Lexapro) 10 mg DAILY PO Last administered on 11/16/18 08:48; Admin Dose 10 MG; Start 10/22/18 at 09:00 Loratadine (Claritin) 10 mg DAILY PO Last administered on 11/16/18 08:48; Admin Dose 10 MG; Start 10/22/18 at 09:00 Magnesium Hydroxide (Milk Of Mag) 30 ml DAILY PO Last administered on 11/14/18 08:41; Admin Dose 30 ML; Start 10/22/18 at 09:00 Oxycodone HCl (Oxycontin) 20 mg Q12 PO Last administered on 11/16/18 08:48; Admin Dose 20 MG; Start 10/22/18 at 09:00 Pantoprazole (Protonix Tab) 40 mg AC BREAKFAST PO Last administered on 11/16/18 06:03; Admin Dose 40 MG; Start 10/22/18 at 07:25 Polyethylene Glycol (Miralax) 17 gm DAILY PO Last administered on 11/16/18 08:47; Admin Dose 17 GM; Start 10/22/18 at 09:00 Simethicone (Mylicon) 80 mg Q8H PO Last administered on 11/15/18 16:12; Admin Dose 80 MG; Start 10/21/18 at 23:30 Spironolactone (Aldactone) 50 mg DAILY PO Last administered on 11/16/18 08:47; Admin Dose 50 MG; Start 10/22/18 at 09:00 Zolpidem Tartrate (Ambien) 10 mg HS PRN PO INSOMNIA Last administered on 11/11/18 23:03; Admin Dose 5 MG; Start 10/21/18 at 23:30 Morphine Sulfate (morphine) 2 mg Q4H PRN IV SEVERE PAIN LEVEL 7-10 Last administered on 11/15/18 00:14; Admin Dose 2 MG; Start 10/22/18 at 01:30 Phenol (Cepastat Lozenge) 1 lozenge Q1H PRN MT sore throat Last administered on 10/31/18 18:34; Admin Dose 1 LOZENGE; Start 10/27/18 at 21:30 Fluticasone Propionate (Flonase 0.05% Nasal) 1 spray BID NASAL Last administered on 11/13/18 21:27; Admin Dose 1 SPRAY; Start 10/29/18 at 21:00 Budesonide (Pulmicort (Neb)) 0.5 mg BID RESP THERAPY HHN Last administered on 11/15/18 21:19; Admin Dose 0.5 MG; Start 10/30/18 at 09:00 Metolazone (Zaroxolyn) 2.5 mg BID@0530,1730 PO Last administered on 11/16/18 05:34; Admin Dose 2.5 MG; Start 11/01/18 at 05:30 Guaifenesin/ Codeine Phosphate (Robitussin Ac Liquid Cup) 10 ml Q4 PO Last administered on 11/16/18 08:47; Admin Dose 10 ML; Start 11/02/18 at 09:00 Enoxaparin Sodium (Lovenox) 40 mg DAILY SC Last administered on 11/16/18 08:52; Admin Dose 40 MG; Start 11/02/18 at 09:00 Ibuprofen (Motrin) 400 mg Q6H PRN PO MILD PAIN(1-3) OR TEMP>38C; Start 11/07/18 at 12:20 Albuterol/ Ipratropium (Duoneb) 3 ml Q8H RESP THERAPY PRN HHN SHORTNESS OF BREATH; Start 11/10/18 at 20:00 Potassium Chloride (Klor-Con 20) 20 meq BID PO Last administered on 11/16/18 08:48; Admin Dose 20 MEQ; Start 11/11/18 at 09:00 Bumetanide (Bumex) 1 mg BID DIURETICS PO Last administered on 11/16/18 06:02; Admin Dose 1 MG; Start 11/15/18 at 18:00 EMILY NELSON MD Nov 16, 2018 12:02
--- NOTE | 2018-11-16 12:36 | CONS ---
Assessment/Plan Assessment/Plan Hospital Course (Demo Recall) 1. Volume overload. Etiology is secondary to diastolic heart failure. Questionable portal hypertension due to metastatic disease, questionable lymphangitic spread. cont bumex po. Continue current diuretic regimen, adjust as needed. Monitor renal function and electrolytes closely. 2. Metabolic alkalemia secondary to hypokalemia and diuretic therapy, improving. The patient has completed a course of Diamox. Continue to monitor. 3. Hypokalemia. Continue to monitor and replete as needed. 4. Nonoliguric acute kidney injury. Etiology is secondary to hemodynamics. Renal function is fluctuating, but improving. Continue to monitor. 5. Status post breast cancer with metastasis to the liver and spine. Continue to monitor. 6. Hip fracture, status post arthroplasty. 7. Pleural effusion, status post thoracentesis. 8. Chronic pain syndrome. 9. Status post bronchitis. Consultation Date/Type/Reason Admit Date/Time October 21, 2018 at 17:39 Initial Consult Date 10/21/18 Requesting Provider: RUSS JEROME MD Date/Time of Note DATE: 11/16/18 TIME: 12:36 24 HR Interval Summary Free Text/Dictation shortness of breath improved denies n/v or urinating issues gen nad cv rrr pulm bibasilar rales abd soft, nd ,nt +bs ext: no edema Exam/Review of Systems Exam Vitals Vital Signs Date Temp Pulse Resp B/P (MAP) Pulse Ox O2 O2 Flow FiO2 Time Delivery Rate 11/16/18 81 117/70 08:45 (86) 11/16/18 98.1 15 100 Room Air 07:37 11/15/18 21 21:21 11/15/18 2.0 00:54 Intake and Output 11/15/18 11/15/18 11/16/18 1515:00 23:00 07:00 IntakeIntake Total 540 ml 900 ml 180 ml OutputOutput Total 350 ml 700 ml BalanceBalance 540 ml 550 ml -520 ml Results Result Diagram: 11/16/18 0444 Results 24hrs Laboratory Tests Test 11/16/18 04:44 Sodium Level 136 Potassium Level 3.5 Chloride Level 99 Carbon Dioxide Level 31 Anion Gap 6 Blood Urea Nitrogen 35 H Creatinine 1.03 H Est Glomerular Filtrat Rate mL/min 55 L Glucose Level 127 Calcium Level 9.0 Phosphorus Level 5.6 H Magnesium Level 2.0 Medications Medication Current Medications Acetaminophen (Tylenol Tab) 650 mg Q4H PRN PO PAIN LEVEL 1-03/27 Last administered on 11/15/18 22:31; Admin Dose 650 MG; Start 10/21/18 at 23:30 Anastrozole (Arimidex) 1 mg DAILY PO Last administered on 11/16/18 08:52; Admin Dose 1 MG; Start 10/22/18 at 09:00 Benazepril HCl (Lotensin) 5 mg DAILY PO Last administered on 10/30/18 09:27; Admin Dose 5 MG; Start 10/22/18 at 09:00; Status Hold Bisacodyl (Dulcolax Supp) 10 mg Q8 [place] Last administered on 10/31/18 16:42; Admin Dose 10 MG; Start 10/22/18 at 06:00 Carvedilol (Coreg) 3.125 mg BID PO Last administered on 11/16/18 08:48; Admin Dose 3.125 MG; Start 10/22/18 at 09:00 Docusate Sodium (Colace) 100 mg BID PO Last administered on 11/16/18 08:47; Admin Dose 100 MG; Start 10/22/18 at 09:00 Escitalopram Oxalate (Lexapro) 10 mg DAILY PO Last administered on 11/16/18 08 :48; Admin Dose 10 MG; Start 10/22/18 at 09:00 Loratadine (Claritin) 10 mg DAILY PO Last administered on 11/16/18 08:48; Admin Dose 10 MG; Start 10/22/18 at 09:00 Magnesium Hydroxide (Milk Of Mag) 30 ml DAILY PO Last administered on 11/14/18 08:41; Admin Dose 30 ML; Start 10/22/18 at 09:00 Oxycodone HCl (Oxycontin) 20 mg Q12 PO Last administered on 11/16/18 08:48; Admin Dose 20 MG; Start 10/22/18 at 09:00 Pantoprazole (Protonix Tab) 40 mg AC BREAKFAST PO Last administered on 11/16/18 06:03; Admin Dose 40 MG; Start 10/22/18 at 07:25 Polyethylene Glycol (Miralax) 17 gm DAILY PO Last administered on 11/16/18 08:47; Admin Dose 17 GM; Start 10/22/18 at 09:00 Simethicone (Mylicon) 80 mg Q8H PO Last administered on 11/15/18 16:12; Admin Dose 80 MG; Start 10/21/18 at 23:30 Spironolactone (Aldactone) 50 mg DAILY PO Last administered on 11/16/18 08:47; Admin Dose 50 MG; Start 10/22/18 at 09:00 Zolpidem Tartrate (Ambien) 10 mg HS PRN PO INSOMNIA Last administered on 11/11/18 23:03; Admin Dose 5 MG; Start 10/21/18 at 23:30 Morphine Sulfate (morphine) 2 mg Q4H PRN IV SEVERE PAIN LEVEL 7-10 Last administered on 11/15/18 00:14; Admin Dose 2 MG; Start 10/22/18 at 01:30 Phenol (Cepastat Lozenge) 1 lozenge Q1H PRN MT sore throat Last administered on 10/31/18 18:34; Admin Dose 1 LOZENGE; Start 10/27/18 at 21:30 Fluticasone Propionate (Flonase 0.05% Nasal) 1 spray BID NASAL Last administere d on 11/13/18 21:27; Admin Dose 1 SPRAY; Start 10/29/18 at 21:00 Budesonide (Pulmicort (Neb)) 0.5 mg BID RESP THERAPY HHN Last administered on 11/15/18 21:19; Admin Dose 0.5 MG; Start 10/30/18 at 09:00 Metolazone (Zaroxolyn) 2.5 mg BID@0530,1730 PO Last administered on 11/16/18 05:34; Admin Dose 2.5 MG; Start 11/01/18 at 05:30 Guaifenesin/ Codeine Phosphate (Robitussin Ac Liquid Cup) 10 ml Q4 PO Last administered on 11/16/18 08:47; Admin Dose 10 ML; Start 11/02/18 at 09:00 Enoxaparin Sodium (Lovenox) 40 mg DAILY SC Last administered on 11/16/18 08:52; Admin Dose 40 MG; Start 11/02/18 at 09:00 Ibuprofen (Motrin) 400 mg Q6H PRN PO MILD PAIN(1-3) OR TEMP>38C; Start 11/07/18 at 12:20 Albuterol/ Ipratropium (Duoneb) 3 ml Q8H RESP THERAPY PRN HHN SHORTNESS OF BREATH; Start 11/10/18 at 20:00 Potassium Chloride (Klor-Con 20) 20 meq BID PO Last administered on 11/16/18at 08:48; Admin Dose 20 MEQ; Start 11/11/18 at 09:00 Bumetanide (Bumex) 1 mg BID DIURETICS PO Last administered on 11/16/18at 06:02; Admin Dose 1 MG; Start 11/15/18 at 18:00 DAMON GUERIN MD Nov 16, 2018 12:36
[2018-11-16 14:02] VITALS: BP 119/75; PULSE 80; RESP 14
[2018-11-16 20:30] VITALS: BP_SYST 100; BP_SYST 98; BP_DIAS 55; BP_DIAS 64; PULSE 84; RESP 18
--- NOTE | 2018-11-16 22:57 | CONS ---
Assessment/Plan Assessment/Plan Hospital Course (Demo Recall) METASTATIC BREAST CANCER WITH PRIMARY ADENOCARCINOMA IN the left breast. MULTIPLE BONY METS, PULMONARY METS, LIVER METS CHEMO ON HOLD PT HAS A VERY GOOD RESPONSE TO CHEMO AND AI CONT AI FOR NOW CT ABD FOR RESTAGING 08.27.18- noted , stable Leukopenia- post chemo, FLUCTUATING WITH RECENT WORSENING- post NEUPOGEN monitor closely post Neutropenia with occasional fever and chills. - resolved Anemia chronic disease SOB PLEURAL EFFUSIONS, NEG CYTOLOGY POST thoracentesis Fluid overload diuretic cardiology F-UP Severe pain in the interscapular and lumbar sacral area most probably metastatic lesion possible femoral fracture. pathologic fracture of T9 with 60% of loss of height. Bony pain with multiple bony mets post XRT d/w dr Ocampo Obesity. Weight loss 60 pounds during the last 2 years COUGH, Upper respiratory infection pharyngitis with dry cough. POST ATB PMS. Myopia. Anxiety disorder. Claustrophobia. Posttraumatic stress disorder. Pain in the left forearm with a history of fracture of ulna and radius. Tachycardia Hypoxemia at night marginal improved after 2 L of nasal cannula oxygen. Deconditioning Pain syndrome. Today the most painful zone is in the right hip area. X-ray did not show any fractures. Hyponatremia- resolved Hypoalbuminemia Right sided cp after catheter insertion and correction less discomfort. Decreased edema both lower extremities with hypotension-improving Swelling of the left forearm-persist. Consultation Date/Type/Reason Admit Date/Time October 21, 2018 at 17:39 Initial Consult Date 10/21/18 Type of Consult [facility] Requesting Provider: RUSS JEROME MD Date/Time of Note DATE: 11/16/18 TIME: 22:56 24 HR Interval Summary Free Text/Dictation all noted d/w pt Exam/Review of Systems Exam Vitals Vital Signs Date Temp Pulse Resp B/P (MAP) Pulse Ox O2 O2 Flow FiO2 Time Delivery Rate 11/16/18 97.6 84 18 100/64 93 20:30 (76) 11/16/18 Room Air 14:02 11/15/18 21 21:21 11/15/18 2.0 00:54 Intake and Output 11/15/18 11/15/18 11/16/18 1515:00 23:00 07:00 IntakeIntake Total 540 ml 900 ml 180 ml OutputOutput Total 350 ml 700 ml BalanceBalance 540 ml 550 ml -520 ml Exam HEENT: Head is normocephalic. NECK: Supple. HEART: Regular rate. LUNGS: Show diminished breath sounds at the base., COARSE, FEW RHONCHI ABDOMEN: Soft, nontender to palpation without rebound or guarding. EXTREMITIES: Negative for clubbing, cyanosis. Positive edema, improving. DERMATOLOGIC: No rashes. MUSCULOSKELETAL: No joint effusion. NEUROLOGIC: No change in exam. Results Result Diagram: 11/16/18 0444 Results 24hrs Laboratory Tests Test 11/16/18 04:44 Sodium Level 136 Potassium Level 3.5 Chloride Level 99 Carbon Dioxide Level 31 Anion Gap 6 Blood Urea Nitrogen 35 H Creatinine 1.03 H Est Glomerular Filtrat Rate mL/min 55 L Glucose Level 127 Calcium Level 9.0 Phosphorus Level 5.6 H Magnesium Level 2.0 Medications Medication Current Medications Acetaminophen (Tylenol Tab) 650 mg Q4H PRN PO PAIN LEVEL 1-10/10 Last administered on 11/15/18 22:31; Admin Dose 650 MG; Start 10/21/18 at 23:30 Anastrozole (Arimidex) 1 mg DAILY PO Last administered on 11/16/18 08:52; Admin Dose 1 MG; Start 10/22/18 at 09:00 Benazepril HCl (Lotensin) 5 mg DAILY PO Last administered on 10/30/18 09:27; A dmin Dose 5 MG; Start 10/22/18 at 09:00; Status Hold Bisacodyl (Dulcolax Supp) 10 mg Q8 [place] Last administered on 10/31/18 16:42; Admin Dose 10 MG; Start 10/22/18 at 06:00 Carvedilol (Coreg) 3.125 mg BID PO Last administered on 11/16/18 20:29; Admin Dose 3.125 MG; Start 10/22/18 at 09:00 Docusate Sodium (Colace) 100 mg BID PO Last administered on 11/16/18 20:30; Admin Dose 100 MG; Start 10/22/18 at 09:00 Escitalopram Oxalate (Lexapro) 10 mg DAILY PO Last administered on 11/16/18 08:48; Admin Dose 10 MG; Start 10/22/18 at 09:00 Loratadine (Claritin) 10 mg DAILY PO Last administered on 11/16/18 08:48; Admin Dose 10 MG; Start 10/22/18 at 09:00 Magnesium Hydroxide (Milk Of Mag) 30 ml DAILY PO Last administered on 11/14/18 08:41; Admin Dose 30 ML; Start 10/22/18 at 09:00 Oxycodone HCl (Oxycontin) 20 mg Q12 PO Last administered on 11/16/18 20:27; Admin Dose 20 MG; Start 10/22/18 at 09:00 Pantoprazole (Protonix Tab) 40 mg AC BREAKFAST PO Last administered on 11/16/18 06:03; Admin Dose 40 MG; Start 10/22/18 at 07:25 Polyethylene Glycol (Miralax) 17 gm DAILY PO Last administered on 11/16/18 08:47; Admin Dose 17 GM; Start 10/22/18 at 09:00 Simethicone (Mylicon) 80 mg Q8H PO Last administered on 11/15/18 16:12; Admin Dose 80 MG; Start 10/21/18 at 23:30 Spironolactone (Aldactone) 50 mg DAILY PO Last administered on 11/16/18 08:47; Admin Dose 50 MG; Start 10/22/18 at 09:00 Zolpidem Tartrate (Ambien) 10 mg HS PRN PO INSOMNIA Last administered on 11/11/18 23:03; Admin Dose 5 MG; Start 10/21/18 at 23:30 Morphine Sulfate (morphine) 2 mg Q4H PRN IV SEVERE PAIN LEVEL 7-10 Last administered on 11/15/18 00:14; Admin Dose 2 MG; Start 10/22/18 at 01:30 Phenol (Cepastat Lozenge) 1 lozenge Q1H PRN MT sore throat Last administered on 10/31/18 18:34; Admin Dose 1 LOZENGE; Start 10/27/18 at 21:30 Fluticasone Propionate (Flonase 0.05% Nasal) 1 spray BID NASAL Last administered on 11/13/18 21:27; Admin Dose 1 SPRAY; Start 10/29/18 at 21:00 Budesonide (Pulmicort (Neb)) 0.5 mg BID RESP THERAPY HHN Last administered on 11/15/18 21:19; Admin Dose 0.5 MG; Start 10/30/18 at 09:00 Metolazone (Zaroxolyn) 2.5 mg BID@6830,1730 PO Last administered on 11/16/18at 17:18; Admin Dose 2.5 MG; Start 11/01/18 at 05:30 Guaifenesin/ Codeine Phosphate (Robitussin Ac Liquid Cup) 10 ml Q4 PO Last admi nistered on 11/16/18at 17:18; Admin Dose 10 ML; Start 11/02/18 at 09:00 Enoxaparin Sodium (Lovenox) 40 mg DAILY SC Last administered on 11/16/18at 08:52; Admin Dose 40 MG; Start 11/02/18 at 09:00 Ibuprofen (Motrin) 400 mg Q6H PRN PO MILD PAIN(1-3) OR TEMP>38C; Start 11/07/18 at 12:20 Albuterol/ Ipratropium (Duoneb) 3 ml Q8H RESP THERAPY PRN HHN SHORTNESS OF BREATH; Start 11/10/18 at 20:00 Potassium Chloride (Klor-Con 20) 20 meq BID PO Last administered on 11/16/18at 20:30; Admin Dose 20 MEQ; Start 11/11/18 at 09:00 Bumetanide (Bumex) 1 mg BID DIURETICS PO Last administered on 11/16/18at 18:06; Admin Dose 1 MG; Start 11/15/18 at 18:00 DES DUNAWAY MD Nov 16, 2018 22:57
[2018-11-16] MEDS: morphine 2 MG INJ IV PRN (23:35)
[2018-11-17] MEDS: GUAIFENESIN/CODEINE 5ML CUP PO SCH ×6 (01:00→21:00)
[2018-11-17 01:58] VITALS: BP 101/58; PULSE 83; RESP 19
[2018-11-17] MEDS: BUMETANIDE 1 MG TAB PO SCH ×2 (04:59→18:21)
[2018-11-17] MEDS: PANTOPRAZOLE (EC) 40 MG TAB PO SCH (05:00)
[2018-11-17] MEDS: METOLAZONE 2.5 MG TAB PO SCH ×2 (05:01→18:21)
[2018-11-17] MEDS: BISACODYL 10 MG SUPP PR SCH ×3 (05:23→22:00)
[2018-11-17] MEDS ORDERED: POTASSIUM CHLORIDE (SR) 20 MEQ TAB PO STA (07:13)
[2018-11-17 07:41] VITALS: BP 130/67; PULSE 80; RESP 16
[2018-11-17] MEDS: BUDESONIDE (NEB) 0.5MG/2ML AMP HHN SCH ×2 (08:14→19:48)
[2018-11-17] MEDS: MAGNESIUM HYDROXIDE 30ML CUP PO SCH (09:00)
[2018-11-17] MEDS: FLUTICASONE 0.05% 16 GM NAS SPRAY NASAL SCH ×2 (09:00→21:00)
[2018-11-17] MEDS: POLYETHYLENE GLYCOL 17 GM PACKET PO SCH (09:13)
[2018-11-17] MEDS: DOCUSATE SODIUM 100 MG CAP PO SCH ×2 (09:13→22:23)
[2018-11-17] MEDS: ENOXAPARIN 40 MG/0.4 ML SYG SC SCH (09:13)
[2018-11-17] MEDS: ESCITALOPRAM 10 MG TAB PO SCH (09:14)
[2018-11-17] MEDS: POTASSIUM CHLORIDE (SR) 20 MEQ TAB PO SCH ×2 (09:14→22:23)
[2018-11-17] MEDS: LORATADINE 10 MG TAB PO SCH (09:14)
[2018-11-17] MEDS: SPIRONOLACTONE 50 MG TAB PO SCH (09:14)
[2018-11-17] MEDS: oxyCODONE (CR) 20 MG TAB [oxyCONTIN] PO SCH ×2 (09:14→22:23)
[2018-11-17] MEDS: ANASTROZOLE 1 MG TAB PO SCH (09:15)
[2018-11-17] MEDS ORDERED: POTASSIUM CHLORIDE (SR) 20 MEQ TAB PO ONE (09:30)
--- NOTE | 2018-11-17 12:06 | CONS ---
Assessment/Plan Assessment/Plan Hospital Course (Demo Recall) 1. Volume overload. Etiology is secondary to diastolic heart failure. Questionable portal hypertension due to metastatic disease, questionable lymphangitic spread. cont bumex po. Continue current diuretic regimen, adjust as needed. Monitor renal function and electrolytes closely. 2. Metabolic alkalemia secondary to hypokalemia and diuretic therapy, improving. The patient has completed a course of Diamox. Continue to monitor. 3. Hypokalemia. Continue to monitor and replete as needed. 4. Nonoliguric acute kidney injury. Etiology is secondary to hemodynamics. Renal function is fluctuating, but improving. Continue to monitor. 5. Status post breast cancer with metastasis to the liver and spine. Continue to monitor. 6. Hip fracture, status post arthroplasty. 7. Pleural effusion, status post thoracentesis. 8. Chronic pain syndrome. 9. Status post bronchitis. Consultation Date/Type/Reason Admit Date/Time October 21, 2018 at 17:39 Initial Consult Date 10/21/18 Requesting Provider: RUSS JEROME MD Date/Time of Note DATE: 11/17/18 TIME: 12:05 24 HR Interval Summary Free Text/Dictation shortness of breath improving no urinary issues or n/v dw rn gen nad cv rrr pulm ctab abd soft, nd, nt +bs ext: no edema Exam/Review of Systems Exam Vitals Vital Signs Date Temp Pulse Resp B/P (MAP) Pulse Ox O2 O2 Flow FiO2 Time Delivery Rate 11/17/18 97.8 80 16 130/67 99 Room Air 07:41 (88) 11/15/18 21 21:21 11/15/18 2.0 00:54 Intake and Output 11/16/18 11/16/18 11/17/18 1515:00 23:00 07:00 IntakeIntake Total 600 ml 600 ml BalanceBalance 600 ml 600 ml Results Result Diagram: 11/17/18 0456 11/17/18 0456 Results 24hrs Laboratory Tests Test 11/17/18 04:56 White Blood Count 4.8 Red Blood Count 3.24 L Hemoglobin 10.6 L Hematocrit 32.1 L Mean Corpuscular Volume 99.1 Mean Corpuscular Hemoglobin 32.7 Mean Corpuscular Hemoglobin Concent 33.0 Red Cell Distribution Width 14.9 H Platelet Count 216 Mean Platelet Volume 9.5 Immature Granulocytes % 0.000 L Neutrophils % 47.2 Lymphocytes % 36.1 Monocytes % 13.8 H Eosinophils % 2.3 Basophils % 0.6 Nucleated Red Blood Cells % 0.0 Immature Granulocytes # 0.000 Neutrophils # 2.3 Lymphocytes # 1.7 Monocytes # 0.7 Eosinophils # 0.1 Basophils # 0.0 Nucleated Red Blood Cells # 0.0 Sodium Level 138 Potassium Level 2.9 *L Chloride Level 96 L Carbon Dioxide Level 34 H Anion Gap 8 Blood Urea Nitrogen 37 H Creatinine 0.93 Est Glomerular Filtrat Rate mL/min > 60 Glucose Level 106 Calcium Level 8.8 Total Bilirubin 0.4 Direct Bilirubin 0.00 Indirect Bilirubin 0.4 Aspartate Amino Transf (AST/SGOT) 45 Alanine Aminotransferase (ALT/SGPT) 37 Alkaline Phosphatase 95 Total Protein 6.6 Albumin 3.5 Globulin 3.10 Albumin/Globulin Ratio 1.12 Medications Medication Current Medications Acetaminophen (Tylenol Tab) 650 mg Q4H PRN PO PAIN LEVEL 1-03/27 Last administered on 11/15/18 22:31; Admin Dose 650 MG; Start 10/21/18 at 23:30 Anastrozole (Arimidex) 1 mg DAILY PO Last administered on 11/17/18 09:15; Admin Dose 1 MG; Start 10/22/18 at 09:00 Benazepril HCl (Lotensin) 5 mg DAILY PO Last administered on 10/30/18 09:27; Admin Dose 5 MG; Start 10/22/18 at 09:00; Status Hold Bisacodyl (Dulcolax Supp) 10 mg Q8 [place] Last administered on 10/31/18at 16:42; Admin Dose 10 MG; Start 10/22/18 at 06:00 Carvedilol (Coreg) 3.125 mg BID PO Last administered on 11/17/18 09:15; Admin Dose 3.125 MG; Start 10/22/18 at 09:00 Docusate Sodium (Colace) 100 mg BID PO Last administered on 11/17/18 09:13; Admin Dose 100 MG; Start 10/22/18 at 09:00 Escitalopram Oxalate (Lexapro) 10 mg DAILY PO Last administered on 11/17/18 09:14; Admin Dose 10 MG; Start 10/22/18 at 09:00 Loratadine (Claritin) 10 mg DAILY PO Last administered on 11/17/18 09:14; Admin Dose 10 MG; Start 10/22/18 at 09:00 Magnesium Hydroxide (Milk Of Mag) 30 ml DAILY PO Last administered on 11/14/18 08:41; Admin Dose 30 ML; Start 10/22/18 at 09:00 Oxycodone HCl (Oxycontin) 20 mg Q12 PO Last administered on 11/17/18 09:14; Admin Dose 20 MG; Start 10/22/18 at 09:00 Pantoprazole (Protonix Tab) 40 mg AC BREAKFAST PO Last administered on 11/17/18 05:00; Admin Dose 40 MG; Start 10/22/18 at 07:25 Polyethylene Glycol (Miralax) 17 gm DAILY PO Last administered on 11/17/18 09:13; Admin Dose 17 GM; Start 10/22/18 at 09:00 Simethicone (Mylicon) 80 mg Q8H PO Last administered on 11/15/18 16:12; Admin Dose 80 MG; Start 10/21/18 at 23:30 Spironolactone (Aldactone) 50 mg DAILY PO Last administered on 11/17/18 09:14; Admin Dose 50 MG; Start 10/22/18 at 09:00 Zolpidem Tartrate (Ambien) 10 mg HS PRN PO INSOMNIA Last administered on 11/11/18 23:03; Admin Dose 5 MG; Start 10/21/18 at 23:30 Morphine Sulfate (morphine) 2 mg Q4H PRN IV SEVERE PAIN LEVEL 7-10 Last administered on 11/16/18 23:35; Admin Dose 2 MG; Start 10/22/18 at 01:30 Phenol (Cepastat Lozenge) 1 lozenge Q1H PRN MT sore throat Last administered on 10/31/18 18:34; Admin Dose 1 LOZENGE; Start 10/27/18 at 21:30 Fluticasone Propionate (Flonase 0.05% Nasal) 1 spray BID NASAL Last administer ed on 11/13/18 21:27; Admin Dose 1 SPRAY; Start 10/29/18 at 21:00 Budesonide (Pulmicort (Neb)) 0.5 mg BID RESP THERAPY HHN Last administered on 11/15/18 21:19; Admin Dose 0.5 MG; Start 10/30/18 at 09:00 Metolazone (Zaroxolyn) 2.5 mg BID@0530,1730 PO Last administered on 11/17/18 05:01; Admin Dose 2.5 MG; Start 11/01/18 at 05:30 Guaifenesin/ Codeine Phosphate (Robitussin Ac Liquid Cup) 10 ml Q4 PO Last administered on 11/17/18 09:13; Admin Dose 10 ML; Start 11/02/18 at 09:00 Enoxaparin Sodium (Lovenox) 40 mg DAILY SC Last administered on 11/17/18 09:13; Admin Dose 40 MG; Start 11/02/18 at 09:00 Ibuprofen (Motrin) 400 mg Q6H PRN PO MILD PAIN(1-3) OR TEMP>38C; Start 11/07/18 at 12:20 Albuterol/ Ipratropium (Duoneb) 3 ml Q8H RESP THERAPY PRN HHN SHORTNESS OF BREATH; Start 11/10/18 at 20:00 Potassium Chloride (Klor-Con 20) 20 meq BID PO Last administered on 11/17/18 09:14; Admin Dose 20 MEQ; Start 11/11/18 at 09:00 Bumetanide (Bumex) 1 mg BID DIURETICS PO Last administered on 11/17/18at 04:59; Admin Dose 1 MG; Start 11/15/18 at 18:00 DAMON GUERIN MD Nov 17, 2018 12:06
[2018-11-17 14:13] VITALS: BP 102/61; PULSE 85; RESP 16
--- NOTE | 2018-11-17 14:13 | CONS ---
Assessment/Plan Assessment/Plan Hospital Course (Demo Recall) 1. Congestive heart failure exacerbation would be diastolic, acute on chronic by most recent echo.-now s/p echo this admit with EF 60/small effusion - better now, responding to diuresis. BETTER overall- very robust urine output - improved CHF. Overall stable. Responded well. 2. Abnormal electrocardiogram with low voltage, rule out pericardial effusion - stable, no signs of tamponade. Treated. Off tele now. NO intervetion palnned. 3. Hypertension-currently borderline hypotension - treated with meds. BP stable overall. 4. Metastatic breast carcinoma- responded to chemo per Dr. Fernández - still poor prognosis. 5. History of pathologic fractures of the leg, status post open reduction and internal fixation - pain controlled. 6. Anemia =- Rx per hem-onc team. 7. Increased BNP consistent with patient's congestive heart failure. 8. Pericardial effusion-small by echo 8. Cough - con't anti-bx now. Consultation Date/Type/Reason Admit Date/Time October 21, 2018 at 17:39 Initial Consult Date 10/21/18 Requesting Provider: RUSS JEROME MD Date/Time of Note DATE: 11/17/18 TIME: 14:13 24 HR Interval Summary Free Text/Dictation VS reviewed -stable Exam/Review of Systems Exam Vitals Vital Signs Date Temp Pulse Resp B/P (MAP) Pulse Ox O2 O2 Flow FiO2 Time Delivery Rate 11/17/18 97.8 80 16 130/67 99 Room Air 07:41 (88) 11/15/18 21 21:21 11/15/18 2.0 00:54 Intake and Output 11/16/18 11/16/18 11/17/18 1515:00 23:00 07:00 IntakeIntake Total 600 ml 600 ml BalanceBalance 600 ml 600 ml Results Result Diagram: 11/17/18 0456 11/17/18 0456 Results 24hrs Laboratory Tests Test 11/17/18 04:56 White Blood Count 4.8 Red Blood Count 3.24 L Hemoglobin 10.6 L Hematocrit 32.1 L Mean Corpuscular Volume 99.1 Mean Corpuscular Hemoglobin 32.7 Mean Corpuscular Hemoglobin Concent 33.0 Red Cell Distribution Width 14.9 H Platelet Count 216 Mean Platelet Volume 9.5 Immature Granulocytes % 0.000 L Neutrophils % 47.2 Lymphocytes % 36.1 Monocytes % 13.8 H Eosinophils % 2.3 Basophils % 0.6 Nucleated Red Blood Cells % 0.0 Immature Granulocytes # 0.000 Neutrophils # 2.3 Lymphocytes # 1.7 Monocytes # 0.7 Eosinophils # 0.1 Basophils # 0.0 Nucleated Red Blood Cells # 0.0 Sodium Level 138 Potassium Level 2.9 *L Chloride Level 96 L Carbon Dioxide Level 34 H Anion Gap 8 Blood Urea Nitrogen 37 H Creatinine 0.93 Est Glomerular Filtrat Rate mL/min > 60 Glucose Level 106 Calcium Level 8.8 Total Bilirubin 0.4 Direct Bilirubin 0.00 Indirect Bilirubin 0.4 Aspartate Amino Transf (AST/SGOT) 45 Alanine Aminotransferase (ALT/SGPT) 37 Alkaline Phosphatase 95 Total Protein 6.6 Albumin 3.5 Globulin 3.10 Albumin/Globulin Ratio 1.12 Medications Medication Current Medications Acetaminophen (Tylenol Tab) 650 mg Q4H PRN PO PAIN LEVEL 1-1010 Last administered on 11/15/18 22:31; Admin Dose 650 MG; Start 10/21/18 at 23:30 Anastrozole (Arimidex) 1 mg DAILY PO Last administered on 11/17/18 09:15; Admin Dose 1 MG; Start 10/22/18 at 09:00 Benazepril HCl (Lotensin) 5 mg DAILY PO Last administered on 10/30/18 09:27; Admin Dose 5 MG; Start 10/22/18 at 09:00; Status Hold Bisacodyl (Dulcolax Supp) 10 mg Q8 [place] Last administered on 10/31/18 16:42; Admin Dose 10 MG; Start 10/22/18 at 06:00 Carvedilol (Coreg) 3.125 mg BID PO Last administered on 11/17/18 09:15; Admin Dose 3.125 MG; Start 10/22/18 at 09:00 Docusate Sodium (Colace) 100 mg BID PO Last administered on 11/17/18 09:13; Admin Dose 100 MG; Start 10/22/18 at 09:00 Escitalopram Oxalate (Lexapro) 10 mg DAILY PO Last administered on 11/17/18 09:14; Admin Dose 10 MG; Start 10/22/18 at 09:00 Loratadine (Claritin) 10 mg DAILY PO Last administered on 11/17/18 09:14; Admin Dose 10 MG; Start 10/22/18 at 09:00 Magnesium Hydroxide (Milk Of Mag) 30 ml DAILY PO Last administered on 11/14/18 08:41; Admin Dose 30 ML; Start 10/22/18 at 09:00 Oxycodone HCl (Oxycontin) 20 mg Q12 PO Last administered on 11/17/18 09:14; Adm in Dose 20 MG; Start 10/22/18 at 09:00 Pantoprazole (Protonix Tab) 40 mg AC BREAKFAST PO Last administered on 11/17/18 05:00; Admin Dose 40 MG; Start 10/22/18 at 07:25 Polyethylene Glycol (Miralax) 17 gm DAILY PO Last administered on 11/17/18 09:13; Admin Dose 17 GM; Start 10/22/18 at 09:00 Simethicone (Mylicon) 80 mg Q8H PO Last administered on 11/15/18 16:12; Admin Dose 80 MG; Start 10/21/18 at 23:30 Spironolactone (Aldactone) 50 mg DAILY PO Last administered on 11/17/18 09:14; Admin Dose 50 MG; Start 10/22/18 at 09:00 Zolpidem Tartrate (Ambien) 10 mg HS PRN PO INSOMNIA Last administered on 11/11/18 23:03; Admin Dose 5 MG; Start 10/21/18 at 23:30 Morphine Sulfate (morphine) 2 mg Q4H PRN IV SEVERE PAIN LEVEL 7-10 Last administered on 11/16/18 23:35; Admin Dose 2 MG; Start 10/22/18 at 01:30 Phenol (Cepastat Lozenge) 1 lozenge Q1H PRN MT sore throat Last administered on 10/31/18 18:34; Admin Dose 1 LOZENGE; Start 10/27/18 at 21:30 Fluticasone Propionate (Flonase 0.05% Nasal) 1 spray BID NASAL Last administered on 11/13/18 21:27; Admin Dose 1 SPRAY; Start 10/29/18 at 21:00 Budesonide (Pulmicort (Neb)) 0.5 mg BID RESP THERAPY HHN Last administered on 11/15/18 21:19; Admin Dose 0.5 MG; Start 10/30/18 at 09:00 Metolazone (Zaroxolyn) 2.5 mg BID@8710,1500 PO Last administered on 11/17/18 05:01; Admin Dose 2.5 MG; Start 11/01/18 at 05:30 Guaifenesin/ Codeine Phosphate (Robitussin Ac Liquid Cup) 10 ml Q4 PO Last administered on 11/17/18at 09:13; Admin Dose 10 ML; Start 11/02/18 at 09:00 Enoxaparin Sodium (Lovenox) 40 mg DAILY [place] Last administered on 11/17/18 09:13; Admin Dose 40 MG; Start 11/02/18 at 09:00 Ibuprofen (Motrin) 400 mg Q6H PRN PO MILD PAIN(1-3) OR TEMP>38C; Start 11/07/18 at 12:20 Albuterol/ Ipratropium (Duoneb) 3 ml Q8H RESP THERAPY PRN HHN SHORTNESS OF BREATH; Start 11/10/18 at 20:00 Potassium Chloride (Klor-Con 20) 20 meq BID PO Last administered on 11/17/18at 09:14; Admin Dose 20 MEQ; Start 11/11/18 at 09:00 Bumetanide (Bumex) 1 mg BID DIURETICS PO Last administered on 11/17/18at 04:59; Admin Dose 1 MG; Start 11/15/18 at 18:00 EMILY NELSON MD Nov 17, 2018 14:13
--- NOTE | 2018-11-17 14:35 | PN ---
Date/Time of Note Date/Time of Note DATE: 11/17/18 TIME: 14:32 Assessment/Plan VTE Prophylaxis Risk score (from Ns)>0 risk: 7 SCD applied (from Ns): No SCD contraindicated: other (on.) Pharmacological prophylaxis: LMWH Lines/Catheters IV Catheter Type (from [facility] PORT-A-CATH Central line still needed: No Urinary Cath still in place: No Reason Cath still needed: urinary retention Assessment/Plan Hospital Course Rrecurrent thoracentesis from left pleural cavity.Bronchitis got treated slowly. CHF improved but not totally gone. Continue current chemotherapy bronchodilator therapy correction of fluid his electrolytes and follow the algorithm for a total synthesis planning. Assessment/Plan Rrecurrent thoracentesis from left pleural cavity.Bronchitis got treated slowly. CHF improved but not totally gone. Continue current chemotherapy bronchodilator therapy correction of fluid his electrolytes and follow the algorithm for a total synthesis planning. Assessment/Plan Rrecurrent thoracentesis from left pleural cavity.Bronchitis got treated slowly. CHF improved but not totally gone. Continue current chemotherapy bronchodilator therapy correction of fluid his electrolytes and follow the algorithm for a total synthesis planning. Assessment/Plan 1. PRIMARY ADENOCARCINOMA of the left breast. MULTIPLE BONY METS, PULMONARY METS;LIVER METS CHEMO ON HOLD; PT HAS A VERY GOOD RESPONSE TO CHEMO AND AI 2. Severe pain in the interscapular and lumbar sacral area most probably metastatic lesion possible femoral fracture. pathologic fracture of T9 with 60% of loss of height. Neurosurgical f/u. 3. Obesity. 4. Weight loss 60 pounds during the last 2 years by diet 5. PMS. 6. Myopia. 7. Anemia chronic disease with a drop of her hematocrit to 27; Latest results 28. Will recheck tomorrow;Leukopenia.Thrombocytopenia; 8. Anxiety disorder. Claustrophobia. Increase Ativan to 1 mg every 8 as n eeded at Lexapro 10 mg daily. 9. Posttraumatic stress disorder. 10. Pain in the left forearm with a history of fracture of ulna and radius. 11. Tachycardia-resolved 12. Hypoxemia at night marginal improved after 2 L of nasal cannula oxygen. 13. Deconditioning 14. 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 MRI: 09/28/18:diffuse osseous metastatic disease with multiple pathologic compression fractures at least involving the T4, T5, T7, T9 and T11 levels. There is likely mild cortical breakthrough at several levels resulting in mild central canal narrowing. No gross evidence of cord compression is seen.. 15. Pain syndrome. Today the most painful zone is in the right hip area. 16. Hyponatremia-corrected; today and hold Aldactone today. 17. Leucopenia-improved. 18. Neutropenia with occasional fever and chills. Last chemotherapy 5 days ago. 19. Hypoalbuminemia. 20.Right sided cp after catheter insertion and correction less discomfort. 21. Decreased edema both lower extremities with [id number] with Pleural and Pericardial effusion. 22. pain syndrome 23.bilateral pleural effusions ; s/p recurrent left thoracentesis Reaccumulation of the pleural fluid. 24. Systolic over diastolic congestive heart failure with a right more than left lower extremity swelling with no DVT in latest venous Doppler. 25. Swelling of the left forearm-persist. Cellulitis of the left forearm with decreased edema anteriorly.-Today it is less edematous 26. Pathologic fracture of the right hip;s/p hemiarthroplasty of right hip . 27. Dizziness 28. Chills. 29. Memory impairment. 30. Upper respiratory infection pharyngitis with dry cough. 31. Decreased voice with wheezing. 32. Headaches 33. Hypokalemia- reoccured. Result Diagram: 11/17/186 11/17/18 0456 Results 24hrs Laboratory Tests Test 11/17/18 04:56 White Blood Count 4.8 Red Blood Count 3.24 L Hemoglobin 10.6 L Hematocrit 32.1 L Mean Corpuscular Volume 99.1 Mean Corpuscular Hemoglobin 32.7 Mean Corpuscular Hemoglobin Concent 33.0 Red Cell Distribution Width 14.9 H Platelet Count 216 Mean Platelet Volume 9.5 Immature Granulocytes % 0.000 L Neutrophils % 47.2 Lymphocytes % 36.1 Monocytes % 13.8 H Eosinophils % 2.3 Basophils % 0.6 Nucleated Red Blood Cells % 0.0 Immature Granulocytes # 0.000 Neutrophils # 2.3 Lymphocytes # 1.7 Monocytes # 0.7 Eosinophils # 0.1 Basophils # 0.0 Nucleated Red Blood Cells # 0.0 Sodium Level 138 Potassium Level 2.9 *L Chloride Level 96 L Carbon Dioxide Level 34 H Anion Gap 8 Blood Urea Nitrogen 37 H Creatinine 0.93 Est Glomerular Filtrat Rate mL/min > 60 Glucose Level 106 Calcium Level 8.8 Total Bilirubin 0.4 Direct Bilirubin 0.00 Indirect Bilirubin 0.4 Aspartate Amino Transf (AST/SGOT) 45 Alanine Aminotransferase (ALT/SGPT) 37 Alkaline Phosphatase 95 Total Protein 6.6 Albumin 3.5 Globulin 3.10 Albumin/Globulin Ratio 1.12 Subjective 24 Hr Interval Summary Free Text/Dictation SOB and right hip pain. Constitutional: improved, poor po; No no complaints, No chills, No diaphoresis, No disoriented, No febrile, No requiring IVF, No requiring O2, No other Eyes: No no complaints, No pain, No discharge, No redness, No visual change, No other ENT: No no complaints, No bleeding, No pain, No congestion, No discharge, No dysphagia, No sore throat, No other Respiratory: cough; No no complaints, No pain, No pleuritic pain, No shortness of breath, No sputum, No wheezing, No other Cardiovascular: edema; No no complaints, No chest pain, No lightheadedness, No orthopenea, No palpitations, No paroxysmal nocturnal dyspnea, No other Gastrointestinal: constipation, decreased appetite, passing stool; No no complaints, No pain, No blood, No diarrhea, No flatus, No nausea, No vo miting, No other Genitourinary: dysuria; No no complaints, No bleeding, No discharge, No flank pain, No hematuria, No other Musculoskeletal: back pain, bone/joint pain; No no complaints, No neck pain, No restricted range of motion, No swelling, No other Exam/Review of Systems Exam Vitals Vital Signs Date Temp Pulse Resp B/P (MAP) Pulse Ox O2 O2 Flow FiO2 Time Delivery Rate 11/17/18 98.7 85 16 102/61 98 Room Air 14:13 (75) 11/15/18 21 21:21 11/15/18 2.0 00:54 Intake and Output 11/16/18 11/16/18 11/17/18 1515:00 23:00 07:00 IntakeIntake Total 600 ml 600 ml BalanceBalance 600 ml 600 ml Constitutional: alert, oriented, well developed, distress, frail, obese Psych: anxiety; No no complaints, No nl mood/affect, No confusion, No depression, No suicidal, No other Head: normocephalic, atraumatic; No lacerations, No hematomas, No other Eyes: EOMI, nl lids; No nl conjunctiva, No nl sclera, No PERRL, No icteric, No fundi, disc, No other ENMT: No nl external ears & nose, No nl lips & teeth, No nl nasal mucosa & sept um, No mucosa pink and moist, No intubated, No tympanic membranes, No other Neck: supple, thyromegaly, nuchal rigidity; No non-tender, No jvd, No bruits, No masses, No other Respiratory: crackles/rales, diminished breath sounds; No clear to auscultation, No normal air movement, No congested cough, No intercostal retraction, No labored breathing, No respirations, No tactile fremitus, No wheezing, No other Cardiovascular: regular rate and rhythm, systolic murmur; No nl pulses, No bruits, No diastolic murmur, No edema, No gallop, No irregular rhythm, No jugular venous distention (JVD), No murmurs/extra sounds, No rub, No S3, No S4, No other Gastrointestinal: soft, nl liver, spleen, bowel sounds; No non-tender, No ascites, No distended, No firm, No hepatomegaly, No mass, No rebound or guarding, No splenomegaly, No surgical scars, No tender, No other Genitourinary - Female: nl adnexae Musculoskeletal: joint tenderness, muscle tone, muscle weakness; No nl extremities to inspection, No nl gait and stance, No range of motion, No spine non-tender, No swelling, No other Extremities: No normal pulses, No calf tenderness, No cyanosis, No clubbing, No edema, No pitting pedal edema, No palpable cord, No tenderness, No other Neurological: [employer] 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, nl mental status, nl speech; No nl strength, No confused, No DTR's symmetric, No focal weakness, No lethargic, No numbness, No reflexes, No unresponsive, No other Results Results 24hrs Laboratory Tests Test 11/17/18 04:56 White Blood Count 4.8 Red Blood Count 3.24 L Hemoglobin 10.6 L Hematocrit 32.1 L Mean Corpuscular Volume 99.1 Mean Corpuscular Hemoglobin 32.7 Mean Corpuscular Hemoglobin Concent 33.0 Red Cell Distribution Width 14.9 H Platelet Count 216 Mean Platelet Volume 9.5 Immature Granulocytes % 0.000 L Neutrophils % 47.2 Lymphocytes % 36.1 Monocytes % 13.8 H Eosinophils % 2.3 Basophils % 0.6 Nucleated Red Blood Cells % 0.0 Immature Granulocytes # 0.000 Neutrophils # 2.3 Lymphocytes # 1.7 Monocytes # 0.7 Eosinophils # 0.1 Basophils # 0.0 Nucleated Red Blood Cells # 0.0 Sodium Level 138 Potassium Level 2.9 *L Chloride Level 96 L Carbon Dioxide Level 34 H Anion Gap 8 Blood Urea Nitrogen 37 H Creatinine 0.93 Est Glomerular Filtrat Rate mL/min > 60 Glucose Level 106 Calcium Level 8.8 Total Bilirubin 0.4 Direct Bilirubin 0.00 Indirect Bilirubin 0.4 Aspartate Amino Transf (AST/SGOT) 45 Alanine Aminotransferase (ALT/SGPT) 37 Alkaline Phosphatase 95 Total Protein 6.6 Albumin 3.5 Globulin 3.10 Albumin/Globulin Ratio 1.12 Medications Medication Current Medications Acetaminophen (Tylenol Tab) 650 mg Q4H PRN PO PAIN LEVEL 1-03/27 Last administered on 11/15/18 22:31; Admin Dose 650 MG; Start 10/21/18 at 23:30 Anastrozole (Arimidex) 1 mg DAILY PO Last administered on 11/17/18 09:15; Admin Dose 1 MG; Start 10/22/18 at 09:00 Benazepril HCl (Lotensin) 5 mg DAILY PO Last administered on 10/30/18 09:27; Admin Dose 5 MG; Start 10/22/18 at 09:00; Status Hold Bisacodyl (Dulcolax Supp) 10 mg Q8 [place] Last administered on 10/31/18at 16:42; Admin Dose 10 MG; Start 10/22/18 at 06:00 Carvedilol (Coreg) 3.125 mg BID PO Last administered on 11/17/18 09:15; Admin Dose 3.125 MG; Start 10/22/18 at 09:00 Docusate Sodium (Colace) 100 mg BID PO Last administered on 11/17/18 09:13; Admin Dose 100 MG; Start 10/22/18 at 09:00 Escitalopram Oxalate (Lexapro) 10 mg DAILY PO Last administered on 11/17/18at 09:14; Admin Dose 10 MG; Start 10/22/18 at 09:00 Loratadine (Claritin) 10 mg DAILY PO Last administered on 11/17/18 09:14; Admin Dose 10 MG; Start 10/22/18 at 09:00 Magnesium Hydroxide (Milk Of Mag) 30 ml DAILY PO Last administered on 11/14/18 08:41; Admin Dose 30 ML; Start 10/22/18 at 09:00 Oxycodone HCl (Oxycontin) 20 mg Q12 PO Last administered on 11/17/18 09:14; Admin Dose 20 MG; Start 10/22/18 at 09:00 Pantoprazole (Protonix Tab) 40 mg AC BREAKFAST PO Last administered on 11/17/18 05:00; Admin Dose 40 MG; Start 10/22/18 at 07:25 Polyethylene Glycol (Miralax) 17 gm DAILY PO Last administered on 11/17/18 09:13; Admin Dose 17 GM; Start 10/22/18 at 09:00 Simethicone (Mylicon) 80 mg Q8H PO Last administered on 11/15/18 16:12; Admin Dose 80 MG; Start 10/21/18 at 23:30 Spironolactone (Aldactone) 50 mg DAILY PO Last administered on 11/17/18 09:14; Admin Dose 50 MG; Start 10/22/18 at 09:00 Zolpidem Tartrate (Ambien) 10 mg HS PRN PO INSOMNIA Last administered on 11/11/18 23:03; Admin Dose 5 MG; Start 10/21/18 at 23:30 Morphine Sulfate (morphine) 2 mg Q4H PRN IV SEVERE PAIN LEVEL 7-10 Last administered on 11/16/18 23:35; Admin Dose 2 MG; Start 10/22/18 at 01:30 Phenol (Cepastat Lozenge) 1 lozenge Q1H PRN MT sore throat Last administered on 10/31/18 18:34; Admin Dose 1 LOZENGE; Start 10/27/18 at 21:30 Fluticasone Propionate (Flonase 0.05% Nasal) 1 spray BID NASAL Last administered on 11/13/18 21:27; Admin Dose 1 SPRAY; Start 10/29/18 at 21:00 Budesonide (Pulmicort (Neb)) 0.5 mg BID RESP THERAPY HHN Last administered on 11/15/18 21:19; Admin Dose 0.5 MG; Start 10/30/18 at 09:00 Metolazone (Zaroxolyn) 2.5 mg BID@3230,1730 PO Last administered on 11/17/18at 05:01; Admin Dose 2.5 MG; Start 11/01/18 at 05:30 Guaifenesin/ Codeine Phosphate (Robitussin Ac Liquid Cup) 10 ml Q4 PO Last administered on 11/17/18at 09:13; Admin Dose 10 ML; Start 11/02/18 at 09:00 Enoxaparin Sodium (Lovenox) 40 mg DAILY SC Last administered on 11/17/18at 09:13; Admin Dose 40 MG; Start 11/02/18 at 09:00 Ibuprofen (Motrin) 400 mg Q6H PRN PO MILD PAIN(1-3) OR TEMP>38C; Start 11/07/18 at 12:20 Albuterol/ Ipratropium (Duoneb) 3 ml Q8H RESP THERAPY PRN HHN SHORTNESS OF BREATH; Start 11/10/18 at 20:00 Potassium Chloride (Klor-Con 20) 20 meq BID PO Last administered on 11/17/18at 09:14; Admin Dose 20 MEQ; Start 11/11/18 at 09:00 Bumetanide (Bumex) 1 mg BID DIURETICS PO Last administered on 11/17/18at 04:59; Admin Dose 1 MG; Start 11/15/18 at 18:00 RUSS JEROME MD Nov 17, 2018 14:35
--- NOTE | 2018-11-17 21:47 | CONS ---
Assessment/Plan Assessment/Plan Hospital Course (Demo Recall) METASTATIC BREAST CANCER WITH PRIMARY ADENOCARCINOMA IN the left breast. MULTIPLE BONY METS, PULMONARY METS, LIVER METS CHEMO ON HOLD PT HAS A VERY GOOD RESPONSE TO CHEMO AND AI CONT AI FOR NOW CT ABD FOR RESTAGING 08.27.18- noted , stable Leukopenia- post chemo, FLUCTUATING WITH RECENT WORSENING- post NEUPOGEN monitor closely post Neutropenia with occasional fever and chills. - resolved Anemia chronic disease SOB PLEURAL EFFUSIONS, NEG CYTOLOGY POST thoracentesis Fluid overload diuretic cardiology F-UP Severe pain in the interscapular and lumbar sacral area most probably metastatic lesion possible femoral fracture. pathologic fracture of T9 with 60% of loss of height. Bony pain with multiple bony mets post XRT d/w dr Ocampo HYPOKALEMIA- REPLACED Obesity. Weight loss 60 pounds during the last 2 years COUGH, Upper respiratory infection pharyngitis with dry cough. POST ATB PMS. Myopia. Anxiety disorder. Claustrophobia. Posttraumatic stress disorder. Pain in the left forearm with a history of fracture of ulna and radius. Tachycardia Hypoxemia at night marginal improved after 2 L of nasal cannula oxygen. Deconditioning Pain syndrome. Today the most painful zone is in the right hip area. X-ray did not show any fractures. Hyponatremia- resolved Hypoalbuminemia Right sided cp after catheter insertion and correction less discomfort. Decreased edema both lower extremities with hypotension-improving Swelling of the left forearm-persist. Consultation Date/Type/Reason Admit Date/Time October 21, 2018 at 17:39 Initial Consult Date 10/21/18 Type of Consult [facility] Requesting Provider: RUSS JEROME MD Date/Time of Note DATE: 11/17/18 TIME: 21:46 24 HR Interval Summary Free Text/Dictation all noted D/W PT AND RN ISELA K NOTED Exam/Review of Systems Exam Vitals Vital Signs Date Temp Pulse Resp B/P (MAP) Pulse Ox O2 O2 Flow FiO2 Time Delivery Rate 11/17/18 88 18 93 21 19:49 11/17/18 98.7 102/61 Room Air 14:13 (75) 11/15/18 2.0 00:54 Intake and Output 11/16/18 11/16/18 11/17/18 1515:00 23:00 07:00 IntakeIntake Total 600 ml 600 ml BalanceBalance 600 ml 600 ml Exam HEENT: Head is normocephalic. NECK: Supple. HEART: Regular rate. LUNGS: Show diminished breath sounds at the base., COARSE, FEW RHONCHI ABDOMEN: Soft, nontender to palpation without rebound or guarding. EXTREMITIES: Negative for clubbing, cyanosis. Positive edema, improving. DERMATOLOGIC: No rashes. MUSCULOSKELETAL: No joint effusion. NEUROLOGIC: No change in exam. Results Result Diagram: 11/17/18 0456 11/17/18 1413 Results 24hrs Laboratory Tests Test 11/17/18 04:56 11/17/18 14:13 White Blood Count 4.8 Red Blood Count 3.24 L Hemoglobin 10.6 L Hematocrit 32.1 L Mean Corpuscular Volume 99.1 Mean Corpuscular Hemoglobin 32.7 Mean Corpuscular Hemoglobin Concent 33.0 Red Cell Distribution Width 14.9 H Platelet Count 216 Mean Platelet Volume 9.5 Immature Granulocytes % 0.000 L Neutrophils % 47.2 Lymphocytes % 36.1 Monocytes % 13.8 H Eosinophils % 2.3 Basophils % 0.6 Nucleated Red Blood Cells % 0.0 Immature Granulocytes # 0.000 Neutrophils # 2.3 Lymphocytes # 1.7 Monocytes # 0.7 Eosinophils # 0.1 Basophils # 0.0 Nucleated Red Blood Cells # 0.0 Sodium Level 138 Potassium Level 2.9 *L 3.9 Chloride Level 96 L Carbon Dioxide Level 34 H Anion Gap 8 Blood Urea Nitrogen 37 H Creatinine 0.93 Est Glomerular Filtrat Rate mL/min > 60 Glucose Level 106 Calcium Level 8.8 Total Bilirubin 0.4 Direct Bilirubin 0.00 Indirect Bilirubin 0.4 Aspartate Amino Transf (AST/SGOT) 45 Alanine Aminotransferase (ALT/SGPT) 37 Alkaline Phosphatase 95 Total Protein 6.6 Albumin 3.5 Globulin 3.10 Albumin/Globulin Ratio 1.12 Magnesium Level 1.9 Medications Medication Current Medications Acetaminophen (Tylenol Tab) 650 mg Q4H PRN PO PAIN LEVEL 1-10/10 Last administered on 11/15/18at 22:31; Admin Dose 650 MG; Start 10/21/18 at 23:30 Anastrozole (Arimidex) 1 mg DAILY PO Last administered on 11/17/18at 09:15; Admin Dose 1 MG; Start 10/22/18 at 09:00 Benazepril HCl (Lotensin) 5 mg DAILY PO Last administered on 10/30/18 09:27; Admin Dose 5 MG; Start 10/22/18 at 09:00; Status Hold Bisacodyl (Dulcolax Supp) 10 mg Q8 [place] Last administered on 10/31/18 16:42; Admin Dose 10 MG; Start 10/22/18 at 06:00 Carvedilol (Coreg) 3.125 mg BID PO Last administered on 11/17/18 09:15; Admin Dose 3.125 MG; Start 10/22/18 at 09:00 Docusate Sodium (Colace) 100 mg BID PO Last administered on 11/17/18 09:13; Admin Dose 100 MG; Start 10/22/18 at 09:00 Escitalopram Oxalate (Lexapro) 10 mg DAILY PO Last administered on 11/17/18 09:14; Admin Dose 10 MG; Start 10/22/18 at 09:00 Loratadine (Claritin) 10 mg DAILY PO Last administered on 11/17/18 09:14; Admin Dose 10 MG; Start 10/22/18 at 09:00 Magnesium Hydroxide (Milk Of Mag) 30 ml DAILY PO Last administered on 11/14/18 08:41; Admin Dose 30 ML; Start 10/22/18 at 09:00 Oxycodone HCl (Oxycontin) 20 mg Q12 PO Last administered on 11/17/18 09:14; A dmin Dose 20 MG; Start 10/22/18 at 09:00 Pantoprazole (Protonix Tab) 40 mg AC BREAKFAST PO Last administered on 11/17/18 05:00; Admin Dose 40 MG; Start 10/22/18 at 07:25 Polyethylene Glycol (Miralax) 17 gm DAILY PO Last administered on 11/17/18 09:13; Admin Dose 17 GM; Start 10/22/18 at 09:00 Simethicone (Mylicon) 80 mg Q8H PO Last administered on 11/15/18 16:12; Admin Dose 80 MG; Start 10/21/18 at 23:30 Spironolactone (Aldactone) 50 mg DAILY PO Last administered on 11/17/18 09:14; Admin Dose 50 MG; Start 10/22/18 at 09:00 Zolpidem Tartrate (Ambien) 10 mg HS PRN PO INSOMNIA Last administered on 11/11/18 23:03; Admin Dose 5 MG; Start 10/21/18 at 23:30 Morphine Sulfate (morphine) 2 mg Q4H PRN IV SEVERE PAIN LEVEL 7-10 Last administered on 11/16/18 23:35; Admin Dose 2 MG; Start 10/22/18 at 01:30 Phenol (Cepastat Lozenge) 1 lozenge Q1H PRN MT sore throat Last administered on 10/31/18 18:34; Admin Dose 1 LOZENGE; Start 10/27/18 at 21:30 Fluticasone Propionate (Flonase 0.05% Nasal) 1 spray BID NASAL Last administered on 11/13/18 21:27; Admin Dose 1 SPRAY; Start 10/29/18 at 21:00 Budesonide (Pulmicort (Neb)) 0.5 mg BID RESP THERAPY HHN Last administered on 11/17/18 19:48; Admin Dose 0.5 MG; Start 10/30/18 at 09:00 Metolazone (Zaroxolyn) 2.5 mg BID@0530,1730 PO Last administered on 11/17/18 18:21; Admin Dose 2.5 MG; Start 11/01/18 at 05:30 Guaifenesin/ Codeine Phosphate (Robitussin Ac Liquid Cup) 10 ml Q4 PO Last administered on 11/17/18 09:13; Admin Dose 10 ML; Start 11/02/18 at 09:00 Enoxaparin Sodium (Lovenox) 40 mg DAILY SC Last administered on 11/17/18 09:13; Admin Dose 40 MG; Start 11/02/18 at 09:00 Ibuprofen (Motrin) 400 mg Q6H PRN PO MILD PAIN(1-3) OR TEMP>38C; Start 11/07/18 at 12:20 Albuterol/ Ipratropium (Duoneb) 3 ml Q8H RESP THERAPY PRN HHN SHORTNESS OF BREATH; Start 11/10/18 at 20:00 Potassium Chloride (Klor-Con 20) 20 meq BID PO Last administered on 11/17/18 09:14; Admin Dose 20 MEQ; Start 11/11/18 at 09:00 Bumetanide (Bumex) 1 mg BID DIURETICS PO Last administered on 6/2/19at 18:21; Admin Dose 1 MG; Start 11/15/18 at 18:00 DES DUNAWAY MD Nov 17, 2018 21:47
[2018-11-17 22:25] VITALS: BP 96/64; PULSE 88; RESP 18
[2018-11-18] MEDS: GUAIFENESIN/CODEINE 5ML CUP PO SCH ×6 (01:00→21:00)
[2018-11-18 02:57] VITALS: BP 112/72; PULSE 82; RESP 19
[2018-11-18] MEDS: BUMETANIDE 1 MG TAB PO SCH ×2 (05:46→17:57)
[2018-11-18] MEDS: METOLAZONE 2.5 MG TAB PO SCH ×2 (05:46→18:00)
[2018-11-18] MEDS: PANTOPRAZOLE (EC) 40 MG TAB PO SCH (05:47)
[2018-11-18] MEDS: BISACODYL 10 MG SUPP PR SCH ×3 (06:00→21:39)
[2018-11-18] MEDS: BUDESONIDE (NEB) 0.5MG/2ML AMP HHN SCH ×2 (08:07→20:00)
[2018-11-18] MEDS: MAGNESIUM HYDROXIDE 30ML CUP PO SCH (09:00)
[2018-11-18] MEDS: FLUTICASONE 0.05% 16 GM NAS SPRAY NASAL SCH ×2 (09:00→21:00)
[2018-11-18] MEDS: DOCUSATE SODIUM 100 MG CAP PO SCH ×2 (09:01→21:34)
[2018-11-18] MEDS: ESCITALOPRAM 10 MG TAB PO SCH (09:01)
[2018-11-18] MEDS: POTASSIUM CHLORIDE (SR) 20 MEQ TAB PO SCH ×2 (09:02→21:34)
[2018-11-18] MEDS: ANASTROZOLE 1 MG TAB PO SCH (09:02)
[2018-11-18] MEDS: oxyCODONE (CR) 20 MG TAB [oxyCONTIN] PO SCH ×2 (09:03→21:34)
[2018-11-18] MEDS: POLYETHYLENE GLYCOL 17 GM PACKET PO SCH (09:03)
[2018-11-18] MEDS: SPIRONOLACTONE 50 MG TAB PO SCH (09:03)
[2018-11-18] MEDS: LORATADINE 10 MG TAB PO SCH (09:03)
[2018-11-18] MEDS: ENOXAPARIN 40 MG/0.4 ML SYG SC SCH (09:07)
--- NOTE | 2018-11-18 13:23 | CONS ---
Assessment/Plan Assessment/Plan Hospital Course (Demo Recall) IMPRESSION: 1. Congestive heart failure exacerbation would be diastolic, acute on chronic by most recent echo.-now s/p echo this admit with EF 60/small effusion 2. Abnormal electrocardiogram with low voltage, rule out pericardial effusion. 3. Hypertension-currently borderline hypotension 4. Metastatic breast carcinoma. 5. History of pathologic fractures of the leg, status post open reduction and internal fixation. 6. Anemia. 7. Increased BNP consistent with patient's congestive heart failure. 8. Pericardial effusion-small by echo 9. Edema-LE venous UTZneg for DVT 10. Hypokalemia-s/p repletion today/on aldactone Recc: -On med-surg -Continued on metolazone and aldactone and now PO bumex with overall significantly improved volume status and resolution of much of LLE edema but s till ongoing assymetric LE edema in leg with fractures -renal and onc following -Continue current coreg as tolerated only and continue to hold benazepril at this time and follow BP closely -follow K clsoely -D/C planning-awaiting placement Consultation Date/Type/Reason Admit Date/Time October 21, 2018 at 17:39 Initial Consult Date 10/21/18 Type of Consult Cardiology Reason for Consultation CHF Requesting Provider: RUSS JEROME MD Date/Time of Note DATE: 11/18/18 TIME: 13:19 Exam/Review of Systems Vital Signs Vitals Vital Signs Date Temp Pulse Resp B/P (MAP) Pulse Ox O2 O2 Flow FiO2 Time Delivery Rate 11/18/18 97.8 82 19 112/72 92 02:57 (85) 11/17/18 Room Air 22:25 11/17/18 21 19:49 11/15/18 2.0 00:54 Intake and Output 11/17/18 11/17/18 11/18/18 1515:00 23:00 07:00 IntakeIntake Total 360 ml 700 ml 120 ml BalanceBalance 360 ml 700 ml 120 ml Exam Exam Review of Systems: CONSTITUTIONAL: No fevers, chills. PULMONARY: No sob CARDIOVASCULAR: No chest pain/palpitations GASTROINTESTINAL: No nausea/vomiting. GENITOURINARY: No hematuria/dysuria. MUSCULOSKELETAL: No myagias/arthalgias. PSYCHIATRIC: The patient denies depression. NEUROLOGIC: No weakness Constitutional: alert Psych: no complaints Head: normocephalic ENMT: mucosa pink and moist Neck: supple, jvd Respiratory: diminished breath sounds Cardiovascular: regular rate and rhythm Gastrointestinal: soft, non-tender Musculoskeletal: muscle tone Extremities: edema (none) Neurological: other (no focal deficits) Labs Result Diagram: 11/17/18 0456 11/17/18 1413 Results 24hrs Laboratory Tests Test 11/17/18 14:13 Potassium Level 3.9 Magnesium Level 1.9 Medications Medications Current Medications Acetaminophen (Tylenol Tab) 650 mg Q4H PRN PO PAIN LEVEL 1-10 Last administered on 11/15/18 22:31; Admin Dose 650 MG; Start 10/21/18 at 23:30 Anastrozole (Arimidex) 1 mg DAILY PO Last administered on 11/18/18 09:02; Admin Dose 1 MG; Start 10/22/18 at 09:00 Benazepril HCl (Lotensin) 5 mg DAILY PO Last administered on 10/30/18 09:27; Admin Dose 5 MG; Start 10/22/18 at 09:00; Status Hold Bisacodyl (Dulcolax Supp) 10 mg Q8 [place] Last administered on 10/31/18 16:42; Admin Dose 10 MG; Start 10/22/18 at 06:00 Carvedilol (Coreg) 3.125 mg BID PO Last administered on 11/18/18 09:08; Admin Dose 3.125 MG; Start 10/22/18 at 09:00 Docusate Sodium (Colace) 100 mg BID PO Last administered on 11/18/18 09:01; Admin Dose 100 MG; Start 10/22/18 at 09:00 Escitalopram Oxalate (Lexapro) 10 mg DAILY PO Last administered on 11/18/18 09:01; Admin Dose 10 MG; Start 10/22/18 at 09:00 Loratadine (Claritin) 10 mg DAILY PO Last administered on 11/18/18 09:03; Admin Dose 10 MG; Start 10/22/18 at 09:00 Magnesium Hydroxide (Milk Of Mag) 30 ml DAILY PO Last administered on 11/14/18 08:41; Admin Dose 30 ML; Start 10/22/18 at 09:00 Oxycodone HCl (Oxycontin) 20 mg Q12 PO Last administered on 11/18/18 09:03; Admin Dose 20 MG; Start 10/22/18 at 09:00 Pantoprazole (Protonix Tab) 40 mg AC BREAKFAST PO Last administered on 11/18/18 05:47; Admin Dose 40 MG; Start 10/22/18 at 07:25 Polyethylene Glycol (Miralax) 17 gm DAILY PO Last administered on 11/18/18 09:03; Admin Dose 17 GM; Start 10/22/18 at 09:00 Simethicone (Mylicon) 80 mg Q8H PO Last administered on 11/15/18 16:12; Admin Dose 80 MG; Start 10/21/18 at 23:30 Spironolactone (Aldactone) 50 mg DAILY PO Last administered on 11/18/18 09:03; Admin Dose 50 MG; Start 10/22/18 at 09:00 Zolpidem Tartrate (Ambien) 10 mg HS PRN PO INSOMNIA Last administered on 11/11/18 23:03; Admin Dose 5 MG; Start 10/21/18 at 23:30 Morphine Sulfate (morphine) 2 mg Q4H PRN IV SEVERE PAIN LEVEL 7-10 Last administered on 11/16/18 23:35; Admin Dose 2 MG; Start 10/22/18 at 01:30 Phenol (Cepastat Lozenge) 1 lozenge Q1H PRN MT sore throat Last administered on 10/31/18 18:34; Admin Dose 1 LOZENGE; Start 10/27/18 at 21:30 Fluticasone Propionate (Flonase 0.05% Nasal) 1 spray BID NASAL Last administered on 11/13/18 21:27; Admin Dose 1 SPRAY; Start 10/29/18 at 21:00 Budesonide (Pulmicort (Neb)) 0.5 mg BID RESP THERAPY HHN Last administered on 11/17/18 19:48; Admin Dose 0.5 MG; Start 10/30/18 at 09:00 Metolazone (Zaroxolyn) 2.5 mg BID@1930,9810 PO Last administered on 11/18/18 05:46; Admin Dose 2.5 MG; Start 11/01/18 at 05:30 Guaifenesin/ Codeine Phosphate (Robitussin Ac Liquid Cup) 10 ml Q4 PO Last administered on 11/17/18 09:13; Admin Dose 10 ML; Start 11/02/18 at 09:00 Enoxaparin Sodium (Lovenox) 40 mg DAILY SC Last administered on 11/18/18 09:07; Admin Dose 40 MG; Start 11/02/18 at 09:00 Ibuprofen (Motrin) 400 mg Q6H PRN PO MILD PAIN(1-3) OR TEMP>38C; Start 11/07/18 at 12:20 Albuterol/ Ipratropium (Duoneb) 3 ml Q8H RESP THERAPY PRN HHN SHORTNESS OF BREATH; Start 11/10/18 at 20:00 Potassium Chloride (Klor-Con 20) 20 meq BID PO Last administered on 11/18/18 09:02; Admin Dose 20 MEQ; Start 11/11/18 at 09:00 Bumetanide (Bumex) 1 mg BID DIURETICS PO Last administered on 11/18/18 05:46; Admin Dose 1 MG; Start 11/15/18 at 18:00 KAMILA TERESA Nov 18, 2018 13:23
--- NOTE | 2018-11-18 13:45 | PN ---
DATE: 11/18/2018 SUBJECTIVE: The patient is stable. No events overnight. OBJECTIVE: VITAL SIGNS: Blood pressure is 96/64, respiration 18, pulse 88, temperature 98.0. HEENT: Head is normocephalic. NECK: Supple. HEART: Regular rate. LUNGS: Show diminished breath sounds at the base. ABDOMEN: Soft, nontender to palpation without rebound or guarding. EXTREMITIES: Negative for clubbing, cyanosis. Positive edema. DERMATOLOGIC: No rashes. MUSCULOSKELETAL: No joint effusion. NEUROLOGIC: No change in exam. MEDICATIONS: Have been reviewed. LABORATORY DATA: Has been reviewed. ASSESSMENT AND PLAN: 1. Volume overload. Etiology is secondary to diastolic heart failure, questionable portal hypertens ion due to metastatic disease, possible lymphangitic spread. The patient is currently stable. Vickie nue current diuretic regimen. Continue Bumex. Monitor electrolytes and renal function closely. 2. Metabolic alkalemia secondary to hypokalemia and diuretic therapy, improved. The patient has com pleted a course of Diamox. 3. Hypokalemia. Continue to monitor and replete. 4. Nonoliguric acute kidney injury. Etiology is secondary to hemodynamics. Renal function is fluct uating, but overall improving. Continue to monitor. 5. Breast cancer with metastasis to the liver and spine. Continue to monitor. 6. Hip fracture, status post arthroplasty. 7. Pleural effusion, status post thoracentesis. 8. Chronic pain syndrome. 9. Status post bronchitis. Dictated By: ANDRÉS YO/NTS Conf#: [id number] DID#: [id number] CC: RUSS JEROME MD;*EndCC*
--- NOTE | 2018-11-18 20:23 | PN ---
Date/Time of Note Date/Time of Note DATE: 11/18/18 TIME: 20:21 Assessment/Plan VTE Prophylaxis Risk score (from Nsg)>0 risk: 7 SCD applied (from Ns): No SCD contraindicated: other (on.) Pharmacological prophylaxis: LMWH Lines/Catheters IV Catheter Type (from Nrsg): Peripheral IV Central line still needed: No Urinary Cath still in place: No Assessment/Plan Hospital Course Rrecurrent thoracentesis from left pleural cavity.Bronchitis got treated slowly. CHF improved but not totally gone. Continue current chemotherapy bronchodilator therapy correction of fluid his electrolytes and follow the algorithm for a total synthesis planning. Assessment/Plan Assessment/Plan 1. PRIMARY ADENOCARCINOMA of the left breast. MULTIPLE BONY METS, PULMONARY METS;LIVER METS CHEMO ON HOLD; PT HAS A VERY GOOD RESPONSE TO CHEMO AND AI 2. Severe pain in the interscapular and lumbar sacral area most probably metastatic lesion possible femoral fracture. pathologic fracture of T9 with 60% of loss of height. Neurosurgical f/u. 3. Obesity. 4. Weight loss 60 pounds during the last 2 years by diet 5. PMS. 6. Myopia. 7. Anemia chronic disease with a drop of her hematocrit to 27; Latest results 28. Will recheck tomorrow;Leukopenia.Thrombocytopenia; 8. Anxiety disorder. Claustrophobia. Increase Ativan to 1 mg every 8 as needed at Lexapro 10 mg daily. 9. Posttraumatic stress disorder. 10. Pain in the left forearm with a history of fracture of ulna and radius. 11. Tachycardia-resolved 12. Hypoxemia at night marginal improved after 2 L of nasal cannula oxygen. 13. Deconditioning 14. 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 MRI: 09/28/18:diffuse osseous metastatic disease with multiple pathologic compression fractures at least involving the T4, T5, T7, T9 and T11 levels. There is likely mild cortical breakthrough at several levels resulting in mild central canal narrowing. No gross evidence of cord compression is seen.. 15. Pain syndrome. Today the most painful zone is in the right hip area. 16. Hyponatremia-corrected; today and hold Aldactone today. 17. Leucopenia-improved. 18. Neutropenia with occasional fever and chills. Last chemotherapy 5 days ago. 19. Hypoalbuminemia. 20.Right sided cp after catheter insertion and correction less discomfort. 21. Decreased edema both lower extremities with [id number] with Pleural and Pericardial effusion. 22. pain syndrome 23.bilateral pleural effusions ; s/p recurrent left thoracentesis Reaccumulation of the pleural fluid. 24. Systolic over diastolic congestive heart failure with a right more than left lower extremity swelling with no DVT in latest venous Doppler. 25. Swelling of the left forearm-persist. Cellulitis of the left forearm with decreased edema anteriorly.-Today it is less edematous 26. Pathologic fracture of the right hip;s/p hemiarthroplasty of right hip . 27. Dizziness 28. Chills. 29. Memory impairment. 30. Upper respiratory infection pharyngitis with dry cough. 31. Decreased voice with wheezing. 32. Headaches 33. Hypokalemia- reoccured. Result Diagram: 11/17/18 0456 11/17/18 1413 Subjective 24 Hr Interval Summary Free Text/Dictation I am okay except for pain getting tired easily I can do even helpful to work on the floor now. Constitutional: no complaints, chills, poor po, requiring O2; No improved, No diaphoresis, No disoriented, No febrile, No requiring IVF, No other Eyes: No no complaints, No pain, No discharge, No redness, No visual change, No other ENT: congestion; No no complaints, No bleeding, No pain, No discharge, No dysphagia, No sore throat, No other Respiratory: cough; No no complaints, No pain, No pleuritic pain, No shortness of breath, No sputum, No wheezing, No other Cardiovascular: chest pain, edema (Decreased comparing with the yesterday's right leg and left upper extremity.); No no complaints, No lightheadedness, No orthopenea, No palpitations, No paroxysmal nocturnal dyspnea, No other Gastrointestinal: constipation; No no complaints, No pain, No blood, No decreased appetite, No diarrhea, No flatus, No nausea, No passing stool, No vomiting, No other Genitourinary: dysuria; No no complaints, No bleeding, No discharge, No flank pain, No hematuria, No other Musculoskeletal: back pain, bone/joint pain; No no complaints, No neck pain, No restricted range of motion, No swelling, No other Skin: pruritis, rash; No no complaints, No bruising, No erythema, No laceration, No skin lesions, No other Endocrine: polyuria; No no complaints, No polydypsia, No dry skin, No temp intolerance, No other Lymphatic: No no complaints, No adenopathy, No tender nodes, No lymphadema, No other Psychological: anxiety, depression; No no complaints, No nl mood/affect, No confusion, No suicidal, No other Exam/Review of Systems Exam Vitals Vital Signs Date Temp Pulse Resp B/P (MAP) Pulse Ox O2 O2 Flow FiO2 Time Delivery Rate 11/18/18 97.8 82 19 112/72 92 02:57 (85) 11/17/18 Room Air 22:25 11/17/18 21 19:49 11/15/18 2.0 00:54 Intake and Output 11/17/18 11/17/18 11/18/18 1515:00 23:00 07:00 IntakeIntake Total 360 ml 700 ml 120 ml BalanceBalance 360 ml 700 ml 120 ml Constitutional: alert, oriented, well developed Psych: anxiety; No no complaints, No nl mood/affect, No confusion, No depression, No suicidal, No other Head: normocephalic, atraumatic; No lacerations, No hematomas, No other Eyes: EOMI, nl lids, PERRL; No nl conjunctiva, No nl sclera, No icteric, No fundi, disc, No other ENMT: nl lips & teeth; No nl external ears & nose, No nl nasal mucosa & septum, No mucosa pink and moist, No intubated, No tympanic membranes, No other Neck: jvd, bruits, thyromegaly; No supple, No non-tender, No masses, No nuchal rigidity, No other Respiratory: clear to auscultation, normal air movement, crackles/rales, diminished breath sounds (Left leg inferior.); No congested cough, No intercostal retraction, No labored breathing, No respirations, No tactile fremitus, No wheezing, No other Cardiovascular: regular rate and rhythm, nl pulses, edema; No bruits, No diastolic murmur, No gallop, No irregular rhythm, No jugular venous distention (JVD), No murmurs/extra sounds, No rub, No systolic murmur, No S3, No S4, No other Gastrointestinal: soft, nl liver, spleen, bowel sounds, distended; No non-tender, No ascites, No firm, No hepatomegaly, No mass, No rebound or guarding, No splenomegaly, No surgical scars, No tender, No other Genitourinary - Female: No nl adnexae, No nl external genitalia, No CMT, No CVA tenderness, No uterus, No other Musculoskeletal: joint tenderness, muscle tone, muscle weakness; No nl extremities to inspection, No nl gait and stance, No range of motion, No spine non-tender, No swelling, No other Extremities: No normal pulses, No calf tenderness, No cyanosis, No clubbing, No edema, No pitting pedal edema, No palpable cord, No tenderness, No other Neurological: [employer] 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, nl mental status, nl speech; No nl strength, No confused, No DTR's symmetric, No focal weakness, No lethargic, No numbness, No reflexes, No unresponsive, No other Medications Medication Current Medications Acetaminophen (Tylenol Tab) 650 mg Q4H PRN PO PAIN LEVEL 1-10/10 Last administered on 11/15/18 22:31; Admin Dose 650 MG; Start 10/21/18 at 23:30 Anastrozole (Arimidex) 1 mg DAILY PO Last administered on 11/18/18 09:02; Admin Dose 1 MG; Start 10/22/18 at 09:00 Benazepril HCl (Lotensin) 5 mg DAILY PO Last administered on 10/30/18 09:27; Admin Dose 5 MG; Start 10/22/18 at 09:00; Status Hold Bisacodyl (Dulcolax Supp) 10 mg Q8 ID Last administered on 10/31/18 16:42; Admin Dose 10 MG; Start 10/22/18 at 06:00 Carvedilol (Coreg) 3.125 mg BID PO Last administered on 11/18/18 09:08; Admin Dose 3.125 MG; Start 10/22/18 at 09:00 Docusate Sodium (Colace) 100 mg BID PO Last administered on 11/18/18 09:01; Admin Dose 100 MG; Start 10/22/18 at 09:00 Escitalopram Oxalate (Lexapro) 10 mg DAILY PO Last administered on 11/18/18 09:01; Admin Dose 10 MG; Start 10/22/18 at 09:00 Loratadine (Claritin) 10 mg DAILY PO Last administered on 11/18/18 09:03; Admin Dose 10 MG; Start 10/22/18 at 09:00 Magnesium Hydroxide (Milk Of Mag) 30 ml DAILY PO Last administered on 11/14/18 08:41; Admin Dose 30 ML; Start 10/22/18 at 09:00 Oxycodone HCl (Oxycontin) 20 mg Q12 PO Last administered on 11/18/18 09:03; Admin Dose 20 MG; Start 10/22/18 at 09:00 Pantoprazole (Protonix Tab) 40 mg AC BREAKFAST PO Last administered on 11/18/18 at 05:47; Admin Dose 40 MG; Start 10/22/18 at 07:25 Polyethylene Glycol (Miralax) 17 gm DAILY PO Last administered on 11/18/18 09:03; Admin Dose 17 GM; Start 10/22/18 at 09:00 Simethicone (Mylicon) 80 mg Q8H PO Last administered on 11/15/18 16:12; Admin Dose 80 MG; Start 10/21/18 at 23:30 Spironolactone (Aldactone) 50 mg DAILY PO Last administered on 11/18/18 09:03; Admin Dose 50 MG; Start 10/22/18 at 09:00 Zolpidem Tartrate (Ambien) 10 mg HS PRN PO INSOMNIA Last administered on 11/11/18 23:03; Admin Dose 5 MG; Start 10/21/18 at 23:30 Morphine Sulfate (morphine) 2 mg Q4H PRN IV SEVERE PAIN LEVEL 7-10 Last administered on 11/16/18 23:35; Admin Dose 2 MG; Start 10/22/18 at 01:30 Phenol (Cepastat Lozenge) 1 lozenge Q1H PRN MT sore throat Last administered on 10/31/18 18:34; Admin Dose 1 LOZENGE; Start 10/27/18 at 21:30 Fluticasone Propionate (Flonase 0.05% Nasal) 1 spray BID NASAL Last administered on 11/13/18 21:27; Admin Dose 1 SPRAY; Start 10/29/18 at 21:00 Budesonide (Pulmicort (Neb)) 0.5 mg BID RESP THERAPY HHN Last administered on 11/17/18 19:48; Admin Dose 0.5 MG; Start 10/30/18 at 09:00 Metolazone (Zaroxolyn) 2.5 mg BID@0530,1730 PO Last administered on 11/18/18 18:00; Admin Dose 2.5 MG; Start 11/01/18 at 05:30 Guaifenesin/ Codeine Phosphate (Robitussin Ac Liquid Cup) 10 ml Q4 PO Last administered on 11/17/18 09:13; Admin Dose 10 ML; Start 11/02/18 at 09:00 Enoxaparin Sodium (Lovenox) 40 mg DAILY SC Last administered on 11/18/18 09:07; Admin Dose 40 MG; Start 11/02/18 at 09:00 Ibuprofen (Motrin) 400 mg Q6H PRN PO MILD PAIN(1-3) OR TEMP>38C; Start 11/07/18 at 12:20 Albuterol/ Ipratropium (Duoneb) 3 ml Q8H RESP THERAPY PRN HHN SHORTNESS OF BREATH; Start 11/10/18 at 20:00 Potassium Chloride (Klor-Con 20) 20 meq BID PO Last administered on 11/18/18 09:02; Admin Dose 20 MEQ; Start 11/11/18 at 09:00 Bumetanide (Bumex) 1 mg BID DIURETICS PO Last administered on 11/18/18 17:57; Admin Dose 1 MG; Start 11/15/18 at 18:00 RUSS JEROME MD Nov 18, 2018 20:23
[2018-11-18 20:40] VITALS: BP 93/58; PULSE 93; RESP 17
--- NOTE | 2018-11-18 23:15 | CONS ---
Assessment/Plan Assessment/Plan Hospital Course (Demo Recall) METASTATIC BREAST CANCER WITH PRIMARY ADENOCARCINOMA IN the left breast. MULTIPLE BONY METS, PULMONARY METS, LIVER METS CHEMO ON HOLD PT HAS A VERY GOOD RESPONSE TO CHEMO AND AI CONT AI FOR NOW CT ABD FOR RESTAGING 08.27.18- noted , stable Leukopenia- post chemo, FLUCTUATING WITH RECENT WORSENING- post NEUPOGEN monitor closely post Neutropenia with occasional fever and chills. - resolved Anemia chronic disease SOB PLEURAL EFFUSIONS, NEG CYTOLOGY POST thoracentesis Fluid overload diuretic cardiology F-UP Severe pain in the interscapular and lumbar sacral area most probably metastatic lesion possible femoral fracture. pathologic fracture of T9 with 60% of loss of height. Bony pain with multiple bony mets post XRT d/w dr Ocampo HYPOKALEMIA- REPLACED Obesity. Weight loss 60 pounds during the last 2 years COUGH, Upper respiratory infection pharyngitis with dry cough. POST ATB PMS. Myopia. Anxiety disorder. Claustrophobia. Posttraumatic stress disorder. Pain in the left forearm with a history of fracture of ulna and radius. Tachycardia Hypoxemia at night marginal improved after 2 L of nasal cannula oxygen. Deconditioning Pain syndrome. Today the most painful zone is in the right hip area. X-ray did not show any fractures. Hyponatremia- resolved Hypoalbuminemia Right sided cp after catheter insertion and correction less discomfort. Decreased edema both lower extremities with hypotension-improving Swelling of the left forearm-persist. Consultation Date/Type/Reason Admit Date/Time October 21, 2018 at 17:39 Initial Consult Date 10/21/18 Type of Consult [facility] Requesting Provider: RUSS JEROME MD Date/Time of Note DATE: 11/18/18 TIME: 23:15 24 HR Interval Summary Free Text/Dictation ALL NOTED NAD IN THE BED Exam/Review of Systems Exam Vitals Vital Signs Date Temp Pulse Resp B/P (MAP) Pulse Ox O2 O2 Flow FiO2 Time Delivery Rate 11/18/18 99.0 93 17 93/58 (70) 92 20:40 11/17/18 Room Air 22:25 11/17/18 21 19:49 11/15/18 2.0 00:54 Intake and Output 11/17/18 11/17/18 11/18/18 1515:00 23:00 07:00 IntakeIntake Total 360 ml 700 ml 120 ml BalanceBalance 360 ml 700 ml 120 ml Exam HEENT: Head is normocephalic. NECK: Supple. HEART: Regular rate. LUNGS: Show diminished breath sounds at the base., COARSE, FEW RHONCHI ABDOMEN: Soft, nontender to palpation without rebound or guarding. EXTREMITIES: Negative for clubbing, cyanosis. Positive edema, improving. DERMATOLOGIC: No rashes. MUSCULOSKELETAL: No joint effusion. NEUROLOGIC: No change in exam. Results Result Diagram: 11/17/18 0456 11/17/18 1413 Medications Medication Current Medications Acetaminophen (Tylenol Tab) 650 mg Q4H PRN PO PAIN LEVEL 1-10/10 Last administered on 11/15/18 22:31; Admin Dose 650 MG; Start 10/21/18 at 23:30 Anastrozole (Arimidex) 1 mg DAILY PO Last administered on 11/18/18 09:02; Admin Dose 1 MG; Start 10/22/18 at 09:00 Benazepril HCl (Lotensin) 5 mg DAILY PO Last administered on 10/30/18 09:27; Admin Dose 5 MG; Start 10/22/18 at 09:00; Status Hold Bisacodyl (Dulcolax Supp) 10 mg Q8 ME Last administered on 10/31/18 16:42; Admin Dose 10 MG; Start 10/22/18 at 06:00 Carvedilol (Coreg) 3.125 mg BID PO Last administered on 11/18/18 21:36; Admin Dose 3.125 MG; Start 10/22/18 at 09:00 Docusate Sodium (Colace) 100 mg BID PO Last administered on 11/18/18 21:34; Admin Dose 100 MG; Start 10/22/18 at 09:00 Escitalopram Oxalate (Lexapro) 10 mg DAILY PO Last administered on 11/18/18 09:01; Admin Dose 10 MG; Start 10/22/18 at 09:00 Loratadine (Claritin) 10 mg DAILY PO Last administered on 11/18/18 09:03; Admin Dose 10 MG; Start 10/22/18 at 09:00 Magnesium Hydroxide (Milk Of Mag) 30 ml DAILY PO Last administered on 11/14/18 08:41; Admin Dose 30 ML; Start 10/22/18 at 09:00 Oxycodone HCl (Oxycontin) 20 mg Q12 PO Last administered on 11/18/18 21:34; Admin Dose 20 MG; Start 10/22/18 at 09:00 Pantoprazole (Protonix Tab) 40 mg AC BREAKFAST PO Last administered on 11/18/18 05:47; Admin Dose 40 MG; Start 10/22/18 at 07:25 Polyethylene Glycol (Miralax) 17 gm DAILY PO Last administered on 11/18/18 09:03; Admin Dose 17 GM; Start 10/22/18 at 09:00 Simethicone (Mylicon) 80 mg Q8H PO Last administered on 11/15/18 16:12; Admin Dose 80 MG; Start 10/21/18 at 23:30 Spironolactone (Aldactone) 50 mg DAILY PO Last administered on 11/18/18 09:03; Admin Dose 50 MG; Start 10/22/18 at 09:00 Zolpidem Tartrate (Ambien) 10 mg HS PRN PO INSOMNIA Last administered on 11/11/18 23:03; Admin Dose 5 MG; Start 10/21/18 at 23:30 Morphine Sulfate (morphine) 2 mg Q4H PRN IV SEVERE PAIN LEVEL 7-10 Last administered on 11/16/18 23:35; Admin Dose 2 MG; Start 10/22/18 at 01:30 Phenol (Cepastat Lozenge) 1 lozenge Q1H PRN MT sore throat Last administered on 10/31/18 18:34; Admin Dose 1 LOZENGE; Start 10/27/18 at 21:30 Fluticasone Propionate (Flonase 0.05% Nasal) 1 spray BID NASAL Last administered on 11/13/18 21:27; Admin Dose 1 SPRAY; Start 10/29/18 at 21:00 Budesonide (Pulmicort (Neb)) 0.5 mg BID RESP THERAPY HHN Last administered on 11/17/18 19:48; Admin Dose 0.5 MG; Start 10/30/18 at 09:00 Metolazone (Zaroxolyn) 2.5 mg BID@3730,1730 PO Last administered on 11/18/18 18:00; Admin Dose 2.5 MG; Start 11/01/18 at 05:30 Guaifenesin/ Codeine Phosphate (Robitussin Ac Liquid Cup) 10 ml Q4 PO Last administered on 11/17/18 09:13; Admin Dose 10 ML; Start 11/02/18 at 09:00 Enoxaparin Sodium (Lovenox) 40 mg DAILY SC Last administered on 11/18/18 09:07; Admin Dose 40 MG; Start 11/02/18 at 09:00 Ibuprofen (Motrin) 400 mg Q6H PRN PO MILD PAIN(1-3) OR TEMP>38C; Start 11/07/18 at 12:20 Albuterol/ Ipratropium (Duoneb) 3 ml Q8H RESP THERAPY PRN HHN SHORTNESS OF BREATH; Start 11/10/18 at 20:00 Potassium Chloride (Klor-Con 20) 20 meq BID PO Last administered on 11/18/18 21:34; Admin Dose 20 MEQ; Start 11/11/18 at 09:00 Bumetanide (Bumex) 1 mg BID DIURETICS PO Last administered on 11/18/18 17:57; Admin Dose 1 MG; Start 11/15/18 at 18:00 DES DUNAWAY MD Nov 18, 2018 23:15
[2018-11-19] VITALS (7 sets, daily range): BP systolic 99–142; BP diastolic 60–89; PULSE 81–93; RESP 18
[2018-11-19] MEDS: GUAIFENESIN/CODEINE 5ML CUP PO SCH ×6 (01:00→20:22)
[2018-11-19] MEDS: BISACODYL 10 MG SUPP PR SCH ×3 (06:00→21:45)
[2018-11-19] MEDS: BUMETANIDE 1 MG TAB PO SCH ×2 (06:14→18:01)
[2018-11-19] MEDS: METOLAZONE 2.5 MG TAB PO SCH ×2 (06:14→18:03)
[2018-11-19] MEDS: PANTOPRAZOLE (EC) 40 MG TAB PO SCH (06:14)
[2018-11-19] MEDS ORDERED: POTASSIUM CHLORIDE (SR) 20 MEQ TAB PO STA (08:07)
[2018-11-19] MEDS: BUDESONIDE (NEB) 0.5MG/2ML AMP HHN SCH ×2 (08:36→20:00)
[2018-11-19] MEDS: FLUTICASONE 0.05% 16 GM NAS SPRAY NASAL SCH ×2 (09:00→20:22)
[2018-11-19] MEDS: MAGNESIUM HYDROXIDE 30ML CUP PO SCH (09:00)
[2018-11-19] MEDS: LORATADINE 10 MG TAB PO SCH (09:03)
[2018-11-19] MEDS: SPIRONOLACTONE 50 MG TAB PO SCH (09:03)
[2018-11-19] MEDS: ESCITALOPRAM 10 MG TAB PO SCH (09:04)
[2018-11-19] MEDS: DOCUSATE SODIUM 100 MG CAP PO SCH ×2 (09:04→20:21)
[2018-11-19] MEDS: oxyCODONE (CR) 20 MG TAB [oxyCONTIN] PO SCH ×2 (09:05→20:22)
[2018-11-19] MEDS: POLYETHYLENE GLYCOL 17 GM PACKET PO SCH (09:05)
[2018-11-19] MEDS: ANASTROZOLE 1 MG TAB PO SCH (09:07)
[2018-11-19] MEDS: POTASSIUM CHLORIDE (SR) 20 MEQ TAB PO SCH ×2 (09:09→20:21)
[2018-11-19] MEDS: ENOXAPARIN 40 MG/0.4 ML SYG SC SCH (09:09)
--- NOTE | 2018-11-19 09:16 | PN ---
Date/Time of Note Date/Time of Note DATE: 11/19/18 TIME: 09:15 Assessment/Plan VTE Prophylaxis Risk score (from Ns)>0 risk: 8 SCD applied (from [facility] [place]): No SCD contraindicated: other Pharmacological prophylaxis: LMWH Lines/Catheters IV Catheter Type (from [place]): Peripheral IV (port a cath) Central line still needed: No Urinary Cath still in place: No Reason Cath still needed: urinary retention Assessment/Plan Hospital Course Rrecurrent thoracentesis from left pleural cavity.Bronchitis got treated slowly. CHF improved but not totally gone. Continue current chemotherapy bronchodilator therapy correction of fluid his electrolytes and follow the algorithm for a total synthesis planning. Assessment/Plan 1. PRIMARY ADENOCARCINOMA of the left breast. MULTIPLE BONY METS, PULMONARY METS;LIVER METS CHEMO ON HOLD; PT HAS A VERY GOOD RESPONSE TO CHEMO AND AI 2. Severe pain in the interscapular and lumbar sacral area most probably metastatic lesion possible femoral fracture. pathologic fracture of T9 with 60% of loss of height. Neurosurgical f/u. 3. Obesity. 4. Weight loss 60 pounds during the last 2 years by diet 5. PMS. 6. Myopia. 7. Anemia chronic disease with a drop of her hematocrit to 27; Latest results 28. Will recheck tomorrow;Leukopenia.Thrombocytopenia; 8. Anxiety disorder. Claustrophobia. Increase Ativan to 1 mg every 8 as needed at Lexapro 10 mg daily. 9. Posttraumatic stress disorder. 10. Pain in the left forearm with a history of fracture of ulna and radius. 11. Tachycardia-resolved 12. Hypoxemia at night marginal improved after 2 L of nasal cannula oxygen. 13. Deconditioning 14. 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 MRI: 09/28/18:diffuse osseous metastatic disease with multiple pathologic compression fractures at least involving the T4, T5, T7, T9 and T11 levels. There is likely mild cortical breakthrough at several levels resulting in mild central canal narrowing. No gross evidence of cord compression is seen.. 15. Pain syndrome. Today the most painful zone is in the right hip area. 16. Hyponatremia-corrected; today and hold Aldactone today. 17. Leucopenia-improved. 18. Neutropenia with occasional fever and chills. Last chemotherapy 5 days ago. 19. Hypoalbuminemia. 20.Right sided cp after catheter insertion and correction less discomfort. 21. Decreased edema both lower extremities with [id number] with Pleural and Pericardial effusion. 22. pain syndrome 23.bilateral pleural effusions ; s/p recurrent left thoracentesis Reaccumulation of the pleural fluid. 24. Systolic over diastolic congestive heart failure with a right more than left lower extremity swelling with no DVT in latest venous Doppler. 25. Swelling of the left forearm-persist. Cellulitis of the left forearm with decreased edema anteriorly.-Today it is less edematous 26. Pathologic fracture of the right hip;s/p hemiarthroplasty of right hip . 27. Dizziness 28. Chills. 29. Memory impairment. 30. Upper respiratory infection pharyngitis with dry cough. 31. Decreased voice with wheezing. 32. Headaches 33. Hypokalemia- reoccured. Result Diagram: 11/17/18 0456 11/19/18 0435 Results 24hrs Laboratory Tests Test 11/19/18 04:35 11/19/18 08:33 Sodium Level 138 Potassium Level 3.0 L Chloride Level 92 L Carbon Dioxide Level 38 H Anion Gap 8 Blood Urea Nitrogen 42 H Creatinine 0.92 Est Glomerular Filtrat Rate mL/min > 60 Glucose Level 140 Calcium Level 8.9 Phosphorus Level 5.3 H Magnesium Level 1.9 Lab Scanned Report REFERENCE LAB Subjective 24 Hr Interval Summary Free Text/Dictation Pain in the right hip persists. Right pressing during the walk 1 to 2 minutes. No fever or chills. No nausea vomiting. Slept well. Constitutional: improved, poor po; No no complaints, No chills, No diaphoresis, No disoriented, No febrile, No requiring IVF, No requiring O2, No other Eyes: No no complaints, No pain, No discharge, No redness, No visual change, No other ENT: No no complaints, No bleeding, No pain, No congestion, No discharge, No dysphagia, No sore throat, No other Respiratory: pleuritic pain; No no complaints, No pain, No cough, No shortness of breath, No sputum, No wheezing, No other Cardiovascular: chest pain, lightheadedness, orthopenea, palpitations; No no complaints, No edema, No paroxysmal nocturnal dyspnea, No other Gastrointestinal: pain, constipation, decreased appetite; No no complaints, No blood, No diarrhea, No flatus, No nausea, No passing stool, No vomiting, No other Genitourinary: dysuria, discharge; No no complaints, No bleeding, No flank pain, No hematuria, No other Musculoskeletal: back pain, bone/joint pain, neck pain; No no complaints, No restricted range of motion, No swelling, No other Skin: erythema, pruritis Neurologic: dizziness, headache; No no complaints, No confusion, No focal-weakness, No syncope, No seizure, No other Endocrine: polyuria; No no complaints, No polydypsia, No dry skin, No temp intolerance, No other Lymphatic: No no complaints, No adenopathy, No tender nodes, No lymphadema, No other Psychological: anxiety; No no complaints, No nl mood/affect, No confusion, No depression, No suicid al, No other Immunologic: No no complaints, No immunodeficiency, No pruritis, No rhinitis, No urticaria, No other Exam/Review of Systems Exam Vitals Vital Signs Date Temp Pulse Resp B/P (MAP) Pulse Ox O2 O2 Flow FiO2 Time Delivery Rate 11/19/18 98.3 81 18 99/68 (78) 93 Room Air 07:19 11/17/18 21 19:49 Intake and Output 11/18/18 11/18/18 11/19/18 1515:00 23:00 07:00 IntakeIntake Total 120 ml 200 ml BalanceBalance 120 ml 200 ml Constitutional: alert, oriented, well developed, distress, frail Psych: anxiety; No no complaints, No nl mood/affect, No confusion, No depression, No suicidal, No other Head: normocephalic, atraumatic; No lacerations, No hematomas, No other Eyes: EOMI, nl lids; No nl conjunctiva, No nl sclera, No PERRL, No icteric, No fundi, disc, No other ENMT: No nl external ears & nose, No nl lips & teeth, No nl nasal mucosa & septum, No mucosa pink and moist, No intubated, No tympanic membranes, No other Neck: supple, jvd, bruits, nuchal rigidity; No non-tender, No masses, No thyromegaly, No other Respiratory: normal air movement, crackles/rales, diminished breath sounds Cardiovascular: regular rate and rhythm, bruits, edema, jugular venous distention (JVD), systolic murmur; No nl pulses, No diastolic murmur, No gallop, No irregular rhythm, No murmurs/extra sounds, No rub, No S3, No S4, No other Gastrointestinal: soft, nl liver, spleen, bowel sounds, distended; No non-tender, No ascites, No firm, No hepatomegaly, No mass, No rebound or guarding, No splenomegaly, No surgical scars, No tender, No other Musculoskeletal: joint tenderness, muscle tone, muscle weakness; No nl extremities to inspection, No nl gait and stance, No range of motion, No spine non-tender, No swelling, No other Extremities: No normal pulses, No calf tenderness, No cyanosis, No clubbing, No edema, No pitting pedal edema, No palpable cord, No tenderness, No other Results Results 24hrs Laboratory Tests Test 11/19/18 04:35 11/19/18 08:33 Sodium Level 138 Potassium Level 3.0 L Chloride Level 92 L Carbon Dioxide Level 38 H Anion Gap 8 Blood Urea Nitrogen 42 H Creatinine 0.92 Est Glomerular Filtrat Rate mL/min > 60 Glucose Level 140 Calcium Level 8.9 Phosphorus Level 5.3 H Magnesium Level 1.9 Lab Scanned Report REFERENCE LAB Medications Medication Current Medications Acetaminophen (Tylenol Tab) 650 mg Q4H PRN PO PAIN LEVEL 1-10/10 Last administered on 11/15/18 22:31; Admin Dose 650 MG; Start 10/21/18 at 23:30 Anastrozole (Arimidex) 1 mg DAILY PO Last administered on 11/19/18 09:07; Admin Dose 1 MG; Start 10/22/18 at 09:00 Benazepril HCl (Lotensin) 5 mg DAILY PO Last administered on 10/30/18 09:27; Admin Dose 5 MG; Start 10/22/18 at 09:00; Status Hold Bisacodyl (Dulcolax Supp) 10 mg Q8 MN Last administered on 10/31/18 16:42; Admin Dose 10 MG; Start 10/22/18 at 06:00 Carvedilol (Coreg) 3.125 mg BID PO Last administered on 11/18/18 21:36; Admin Dose 3.125 MG; Start 10/22/18 at 09:00 Docusate Sodium (Colace) 100 mg BID PO Last administered on 11/19/18 09:04; Admin Dose 100 MG; Start 10/22/18 at 09:00 Escitalopram Oxalate (Lexapro) 10 mg DAILY PO Last administered on 11/19/18 09:04; Admin Dose 10 MG; Start 10/22/18 at 09:00 Loratadine (Claritin) 10 mg DAILY PO Last administered on 11/19/18 09:03; Admin Dose 10 MG; Start 10/22/18 at 09:00 Magnesium Hydroxide (Milk Of Mag) 30 ml DAILY PO Last administered on 11/14/18 08:41; Admin Dose 30 ML; Start 10/22/18 at 09:00 Oxycodone HCl (Oxycontin) 20 mg Q12 PO Last administered on 11/19/18 09:05; Admin Dose 20 MG; Start 10/22/18 at 09:00 Pantoprazole (Protonix Tab) 40 mg AC BREAKFAST PO Last administered on 11/19/18 06:14; Admin Dose 40 MG; Start 10/22/18 at 07:25 Polyethylene Glycol (Miralax) 17 gm DAILY PO Last administered on 11/19/18 09:05; Admin Dose 17 GM; Start 10/22/18 at 09:00 Simethicone (Mylicon) 80 mg Q8H PO Last administered on 11/15/18 16:12; Admin Dose 80 MG; Start 10/21/18 at 23:30 Spironolactone (Aldactone) 50 mg DAILY PO Last administered on 11/19/18 09:03; Admin Dose 50 MG; Start 10/22/18 at 09:00 Zolpidem Tartrate (Ambien) 10 mg HS PRN PO INSOMNIA Last administered on 11/11/18 23:03; Admin Dose 5 MG; Start 10/21/18 at 23:30 Morphine Sulfate (morphine) 2 mg Q4H PRN IV SEVERE PAIN LEVEL 7-10 Last administered on 11/16/18 23:35; Admin Dose 2 MG; Start 10/22/18 at 01:30 Phenol (Cepastat Lozenge) 1 lozenge Q1H PRN MT sore throat Last administered on 10/31/18 18:34; Admin Dose 1 LOZENGE; Start 10/27/18 at 21:30 Fluticasone Propionate (Flonase 0.05% Nasal) 1 spray BID NASAL Last administered on 11/13/18 21:27; Admin Dose 1 SPRAY; Start 10/29/18 at 21:00 Budesonide (Pulmicort (Neb)) 0.5 mg BID RESP THERAPY HHN Last administered on 11/17/18 19:48; Admin Dose 0.5 MG; Start 10/30/18 at 09:00 Metolazone (Zaroxolyn) 2.5 mg BID@0530,1730 PO Last administered on 11/19/18 06:14; Admin Dose 2.5 MG; Start 11/01/18 at 05:30 Guaifenesin/ Codeine Phosphate (Robitussin Ac Liquid Cup) 10 ml Q4 PO Last administered on 11/17/18 09:13; Admin Dose 10 ML; Start 11/02/18 at 09:00 Enoxaparin Sodium (Lovenox) 40 mg DAILY SC Last administered on 11/19/18 09:09; Admin Dose 40 MG; Start 11/02/18 at 09:00 Ibuprofen (Motrin) 400 mg Q6H PRN PO MILD PAIN(1-3) OR TEMP>38C; Start 11/07/18 at 12:20 Albuterol/ Ipratropium (Duoneb) 3 ml Q8H RESP THERAPY PRN HHN SHORTNESS OF BREATH; Start 11/10/18 at 20:00 Potassium Chloride (Klor-Con 20) 20 meq BID PO Last administered on 11/19/18 09:09; Admin Dose 20 MEQ; Start 11/11/18 at 09:00 Bumetanide (Bumex) 1 mg BID DIURETICS PO Last administered on 11/19/18 06:14; Admin Dose 1 MG; Start 11/15/18 at 18:00 RUSS JEROME MD Nov 19, 2018 09:16
--- NOTE | 2018-11-19 09:21 | PN ---
DATE: 11/19/2018 SUBJECTIVE: The patient is stable. No events overnight. OBJECTIVE: VITAL SIGNS: Blood pressure is 99/68, pulse 81, respirations 18, temperature 98.3. HEENT: Head is normocephalic. NECK: Supple. HEART: Regular rate. LUNGS: Show diminished breath sounds at the base. ABDOMEN: Soft, nontender to palpation without rebound or guarding. EXTREMITIES: Negative for clubbing, cyanosis. Positive edema. DERMATOLOGIC: No rashes. MUSCULOSKELETAL: No joint effusion. NEUROLOGIC: No change in exam. MEDICATIONS: Reviewed. LABORATORY DATA: Reviewed. IMAGING STUDIES: Reviewed. ASSESSMENT AND PLAN: 1. Volume overload. Etiology is secondary to diastolic heart failure, possible portal hypertension due to metastatic disease. Continue current diuretic regimen. Monitor electrolytes and renal functi on closely. 2. Hypokalemia. We will replete with potassium chloride. 3. Metabolic alkalemia, improved status post Diamox. 4. Nonoliguric acute kidney injury, etiology is secondary to hemodynamics. Renal function is fluctu ating, but overall improving. Continue to monitor. 5. Breast cancer with metastasis to the liver and spine. Continue to monitor. 6. Hip fracture, status post arthroplasty. 7. Pleural effusion, status post thoracentesis. 8. Chronic pain syndrome. 9. Status post bronchitis. Dictated By: ANDRÉS YO/KEANU Conf#: [id number] DID#: [id number] CC: RUSS JEROME MD;*EndCC*
--- NOTE | 2018-11-19 10:23 | CONS ---
Consultation Date/Type/Reason Admit Date/Time October 21, 2018 at 17:39 Initial Consult Date 10/21/18 Type of Consult Cardiology Requesting Provider: RUSS JEROME MD Date/Time of Note DATE: 11/19/18 TIME: 10:23 24 HR Interval Summary Free Text/Dictation Pt sleeping - comfortable - VS reviewed. Exam/Review of Systems Vital Signs Vitals Vital Signs Date Temp Pulse Resp B/P (MAP) Pulse Ox O2 O2 Flow FiO2 Time Delivery Rate 11/19/18 98.3 81 18 99/68 (78) 93 Room Air 07:19 11/17/18 19:49 Intake and Output 11/18/18 11/18/18 11/19/18 1515:00 23:00 07:00 IntakeIntake Total 120 ml 200 ml BalanceBalance 120 ml 200 ml Labs Result Diagram: 11/17/18 0456 11/19/18 0435 Results 24hrs Laboratory Tests Test 11/19/18 04:35 11/19/18 08:33 Sodium Level 138 Potassium Level 3.0 L Chloride Level 92 L Carbon Dioxide Level 38 H Anion Gap 8 Blood Urea Nitrogen 42 H Creatinine 0.92 Est Glomerular Filtrat Rate mL/min > 60 Glucose Level 140 Calcium Level 8.9 Phosphorus Level 5.3 H Magnesium Level 1.9 Lab Scanned Report REFERENCE LAB Medications Medications Current Medications Acetaminophen (Tylenol Tab) 650 mg Q4H PRN PO PAIN LEVEL 1-1010 Last administered on 11/15/18at 22:31; Admin Dose 650 MG; Start 10/21/18 at 23:30 Anastrozole (Arimidex) 1 mg DAILY PO Last administered on 11/19/18at 09:07; Admin Dose 1 MG; Start 10/22/18 at 09:00 Benazepril HCl (Lotensin) 5 mg DAILY PO Last administered on 10/30/18at 09:27; Admin Dose 5 MG; Start 10/22/18 at 09:00; Status Hold Bisacodyl (Dulcolax Supp) [address] Last administered on 10/31/18at 16:42; Admin Dose 10 MG; Start 10/22/18 at 06:00 Carvedilol (Coreg) 3.125 mg BID PO Last administered on 11/18/18at 21:36; Admin Dose 3.125 MG; Start 10/22/18 at 09:00 Docusate Sodium (Colace) 100 mg BID PO Last administered on 11/19/18 09:04; Admin Dose 100 MG; Start 10/22/18 at 09:00 Escitalopram Oxalate (Lexapro) 10 mg DAILY PO Last administered on 11/19/18 09:04; Admin Dose 10 MG; Start 10/22/18 at 09:00 Loratadine (Claritin) 10 mg DAILY PO Last administered on 11/19/18 09:03; Admin Dose 10 MG; Start 10/22/18 at 09:00 Magnesium Hydroxide (Milk Of Mag) 30 ml DAILY PO Last administered on 11/14/18 08:41; Admin Dose 30 ML; Start 10/22/18 at 09:00 Oxycodone HCl (Oxycontin) 20 mg Q12 PO Last administered on 11/19/18 09:05; Adm in Dose 20 MG; Start 10/22/18 at 09:00 Pantoprazole (Protonix Tab) 40 mg AC BREAKFAST PO Last administered on 11/19/18 06:14; Admin Dose 40 MG; Start 10/22/18 at 07:25 Polyethylene Glycol (Miralax) 17 gm DAILY PO Last administered on 11/19/18 09:05; Admin Dose 17 GM; Start 10/22/18 at 09:00 Simethicone (Mylicon) 80 mg Q8H PO Last administered on 11/15/18 16:12; Admin Dose 80 MG; Start 10/21/18 at 23:30 Spironolactone (Aldactone) 50 mg DAILY PO Last administered on 11/19/18 09:03; Admin Dose 50 MG; Start 10/22/18 at 09:00 Zolpidem Tartrate (Ambien) 10 mg HS PRN PO INSOMNIA Last administered on 11/11/18 23:03; Admin Dose 5 MG; Start 10/21/18 at 23:30 Morphine Sulfate (morphine) 2 mg Q4H PRN IV SEVERE PAIN LEVEL 7-10 Last administered on 11/16/18 23:35; Admin Dose 2 MG; Start 10/22/18 at 01:30 Phenol (Cepastat Lozenge) 1 lozenge Q1H PRN MT sore throat Last administered on 10/31/18 18:34; Admin Dose 1 LOZENGE; Start 10/27/18 at 21:30 Fluticasone Propionate (Flonase 0.05% Nasal) 1 spray BID NASAL Last administered on 11/13/18 21:27; Admin Dose 1 SPRAY; Start 10/29/18 at 21:00 Budesonide (Pulmicort (Neb)) 0.5 mg BID RESP THERAPY HHN Last administered on 11/17/18 19:48; Admin Dose 0.5 MG; Start 10/30/18 at 09:00 Metolazone (Zaroxolyn) 2.5 mg BID@7026,9620 PO Last administered on 11/19/18 06:14; Admin Dose 2.5 MG; Start 11/01/18 at 05:30 Guaifenesin/ Codeine Phosphate (Robitussin Ac Liquid Cup) 10 ml Q4 PO Last administered on 11/17/18 09:13; Admin Dose 10 ML; Start 11/02/18 at 09:00 Enoxaparin Sodium (Lovenox) 40 mg DAILY SC Last administered on 11/19/18 09:09; Admin Dose 40 MG; Start 11/02/18 at 09:00 Ibuprofen (Motrin) 400 mg Q6H PRN PO MILD PAIN(1-3) OR TEMP>38C; Start 11/07/18 at 12:20 Albuterol/ Ipratropium (Duoneb) 3 ml Q8H RESP THERAPY PRN HHN SHORTNESS OF BREATH; Start 11/10/18 at 20:00 Potassium Chloride (Klor-Con 20) 20 meq BID PO Last administered on 11/19/18 09:09; Admin Dose 20 MEQ; Start 11/11/18 at 09:00 Bumetanide (Bumex) 1 mg BID DIURETICS PO Last administered on 11/19/18 06:14; Admin Dose 1 MG; Start 11/15/18 at 18:00 EMILY NELSON MD Nov 19, 2018 10:23
[2018-11-19] MEDS: morphine 2 MG INJ IV PRN ×2 (14:18→21:55)
[2018-11-19] MEDS ORDERED: LIDOCAINE 1% (MDV) 20 ML INJ ONE (15:55)
--- NOTE | 2018-11-19 18:13 | CONS ---
DATE OF ADMISSION: 10/21/2018 DATE OF CONSULTATION: 11/19/2018 TYPE OF CONSULTATION: Pulmonary. REASON FOR CONSULT: ____ Thank you, Dr. Morrissey, for this consultation. HISTORY OF PRESENT ILLNESS: This is an unfortunate 58-year-old lady with history of metastatic breas t cancer, adenocarcinoma with mets to the bone and lungs presented with worsening respiratory distres s, found to have recurrent pleural effusions and on this admission has had 3 thoracentesis performed. In addition, she has had significant weight loss and currently undergoes chemotherapy by Dr. Tayla harmon. PAST MEDICAL HISTORY: 1. Metastatic breast cancer. 2. History of significant weight loss. 3. Prior history of morbid obesity. 4. Encephalopathy, toxic metabolic. 5. Status post neutropenia, post-chemotherapy. MEDICATIONS: Per chart. ALLERGIES: NONE. SOCIAL HISTORY: She is a nonsmoker, no alcohol, no history of drug use. FAMILY HISTORY: Noncontributory. SYSTEMS REVIEW: A 12-point review of systems was negative other than that mentioned above. PHYSICAL EXAMINATION: GENERAL: Well-nourished, well-developed lady, comfortable at rest, no acute distress. VITAL SIGNS: Currently afebrile, pulse is 90, blood pressure 117/70, on room air. NECK: Supple. No JVD or lymphadenopathy. CARDIAC: S1, S2. No added sounds or murmurs. CHEST: Diminished air entry bilaterally, but no rales or wheezes. ABDOMEN: Soft, nontender. No guarding or rebound. EXTREMITIES: No cyanosis, clubbing, edema. NEUROLOGIC: Generalized weakness. LABORATORY DATA: White count 4.8, hemoglobin 10.6, platelets 216. BUN 42, creatinine 0.92. INR was 1.01. DIAGNOSTIC DATA: Chest x-ray showed mild pulmonary edema with possible metastatic disease to the bon es. IMPRESSION AND PLAN: 1. Recurrent pleural effusion with negative cytology. 2. Metastatic breast cancer. 3. History of congestive cardiac failure with volume overload. The patient should continue with: 1. Supplemental O2 as needed. 2. Hematology/oncology recommendations. 3. Correction of electrolyte imbalance. 4. Diuretics per primary team. 5. Consider placement of a PleurX catheter if pleural effusion continues to rereaccumulate as she randle s had multiple thoracenteses. Dictated By: LIDYA ALLEN MD SV/NTS Conf#: [id number] DID#: [id number] CC: RUSS MORRISSEY MD;*[facility]*
--- NOTE | 2018-11-19 20:03 | CONS ---
DATE OF ADMISSION: 10/21/2018 DATE OF CONSULTATION: 11/19/2018 HISTORY OF PRESENT ILLNESS: The patient is a 58-year-old female, known to me from her previous consu ltation on 09/09/2018 when she developed a pathologic fracture involving the left femoral neck. At t hat time, following a medical evaluation, she was treated with hemiarthroplasty of the left hip on . Following the postop recovery, the patient was discharged; however, she was readmitted on 10/21/2018 because of the shortness of breath and she was found to have a pleural effusion and was tr eated with thoracentesis. She obviously had a ground-level fall at this time while she was in the spital. Initially, she was complaining of pain around the knee and left wrist; however, radiologic e valuation revealed a presence of fracture involving her left wrist, and Orthopedic Surgery was consul malka. On inquiring, she claims that she had a fracture involving her left wrist about 5 years ago and was t reated with manipulative reduction and cast immobilization. However, she was always having radial de viation of the left wrist after the fracture has healed along with some residual discomfort. PHYSICAL EXAMINATION: On examination, there was a diffuse mild swelling around the left wrist along with the painful limit of motion. There was tenderness over the left wrist joint. There was no open injury, and there was no neurovascular compromise. X-rays of the left wrist revealed an old fracture involving the distal end of the radius and ulna at the right wrist. The fracture appears old and it was healed with a slight shortening of the radius w ith the wrist joint in radial deviation. DIAGNOSTIC IMPRESSION: Possible acute fracture or sprain superimposed on old Colles fracture that is healed in a less than ideal alignment with wrist in radial deviation with a slight shortening of the distal radius. TREATMENT RECOMMENDATION: Immobilization of the left wrist in a canvas or nail trim brace. Dictated By: ALMA AKINS/KEANU Conf#: [id number] DID#: [id number] CC: RUSS JEROME MD;*EndCC*
[2018-11-19] MEDS: ONDANSETRON 4 MG INJ IV PRN (20:21)
[2018-11-20] MEDS: GUAIFENESIN/CODEINE 5ML CUP PO SCH ×5 (00:33→17:00)
[2018-11-20 00:54] VITALS: BP 102/69; PULSE 84; RESP 18
[2018-11-20] MEDS: METOLAZONE 2.5 MG TAB PO SCH ×2 (04:29→18:17)
[2018-11-20] MEDS: morphine 2 MG INJ IV PRN ×2 (04:29→11:28)
[2018-11-20] MEDS: BISACODYL 10 MG SUPP PR SCH ×2 (05:16→14:00)
[2018-11-20] MEDS: PANTOPRAZOLE (EC) 40 MG TAB PO SCH (06:17)
[2018-11-20] MEDS: BUMETANIDE 1 MG TAB PO SCH (06:17)
[2018-11-20] MEDS ORDERED: POTASSIUM CHLORIDE (SR) 20 MEQ TAB PO STA (08:06)
[2018-11-20 08:36] VITALS: BP 119/66; PULSE 89; RESP 18
[2018-11-20] MEDS: MAGNESIUM HYDROXIDE 30ML CUP PO SCH (09:00)
[2018-11-20] MEDS: FLUTICASONE 0.05% 16 GM NAS SPRAY NASAL SCH ×2 (09:00→20:37)
[2018-11-20] MEDS ORDERED: BUMETANIDE 0.5 MG TAB PO SCH (09:00)
--- NOTE | 2018-11-20 09:12 | PN ---
Date/Time of Note Date/Time of Note DATE: 11/20/18 TIME: 09:10 Assessment/Plan VTE Prophylaxis Risk score (from Ns)>0 risk: 7 SCD applied (from Ns): Yes SCD contraindicated: low risk/ambulating Pharmacological prophylaxis: LMWH, other Pharm contraindication: other Lines/Catheters IV Catheter Type (from Nrs): Saline Lock Central line still needed: No Urinary Cath still in place: No Reason Cath still needed: urinary retention Assessment/Plan Hospital Course Rrecurrent thoracentesis from left pleural cavity.Bronchitis got treated slowly. CHF improved but not totally gone. Continue current chemotherapy bronchodilator therapy correction of fluid his electrolytes and follow the algor [facility] for a total synthesis planning. Assessment/Plan 1. PRIMARY ADENOCARCINOMA of the left breast. MULTIPLE BONY METS, PULMONARY METS;LIVER METS CHEMO ON HOLD; PT HAS A VERY GOOD RESPONSE TO CHEMO AND AI 2. Severe pain in the interscapular and lumbar sacral area most probably metastatic lesion possible femoral fracture. pathologic fracture of T9 with 60% of loss of height. Neurosurgical f/u. 3. Obesity. 4. Weight loss 60 pounds during the last 2 years by diet 5. PMS. 6. Myopia. 7. Anemia chronic disease with a drop of her hematocrit to 27; Latest results 28. Will recheck tomorrow;Leukopenia.Thrombocytopenia; 8. Anxiety disorder. Claustrophobia. Increase Ativan to 1 mg every 8 as needed at Lexapro 10 mg daily. 9. Posttraumatic stress disorder. 10. Pain in the left forearm with a history of fracture of ulna and radius. 11. Tachycardia-resolved 12. Hypoxemia at night marginal improved after 2 L of nasal cannula oxygen. 13. Deconditioning 14. 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 MRI: 09/28/18:diffuse osseous metastatic disease with multiple pathologic compression fractures at least involving the T4, T5, T7, T9 and T11 levels. There is likely mild cortical breakthrough at several levels resulting in mild central canal narrowing. No gross evidence of cord compression is seen.. 15. Pain syndrome. Today the most painful zone is in the right hip area. 16. Hyponatremia-corrected; today and hold Aldactone today. 17. Leucopenia-improved. 18. Neutropenia with occasional fever and chills. Last chemotherapy 5 days ago. 19. Hypoalbuminemia. 20.Right sided cp after catheter insertion and correction less discomfort. 21. Decreased edema both lower extremities with [id number]-[id number] with Pleural and Pericardial effusion. 22. pain syndrome 23.bilateral pleural effusions ; s/p recurrent left thoracentesis Reaccumulation of the pleural fluid. 24. Systolic over diastolic congestive heart failure with a right more than left lower extremity swelling with no DVT in latest venous Doppler. 25. Swelling of the left forearm-persist. Cellulitis of the left forearm with decreased edema anteriorly.-Today it is less edematous 26. Pathologic fracture of the right hip;s/p hemiarthroplasty of right hip . 27. Dizziness 28. Chills. 29. Memory impairment. 30. Upper respiratory infection pharyngitis with dry cough. 31. Decreased voice with wheezing. 32. Headaches 33. Hypokalemia- reoccured. 34. Status post fall and fracture of styloid process of ulna and radius. Temporary bracing in place. Discussed with Dr. Shane. The patient initially refused the attempted repositioning with local anesthesia. She changed her mind after my talk and agreed to go ahead with local anesthesia if he thinks it is appropriate. Result Diagram: 11/17/18 0456 11/20/18 0449 Results 24hrs Laboratory Tests Test 11/20/18 04:49 Sodium Level 135 Potassium Level 3.2 L Chloride Level 90 L Carbon Dioxide Level 37 H Anion Gap 8 Blood Urea Nitrogen 43 H Creatinine 0.97 Est Glomerular Filtrat Rate mL/min 59 L Glucose Level 123 Calcium Level 8.6 Phosphorus Level 6.0 H Magnesium Level 1.8 Subjective 24 Hr Interval Summary Free Text/Dictation Pain in the left wrist. Status post fall yesterday without loss of consciousness in the toilet. Denies slipping denies dizziness at the moment of fall. The patient revealed that she had another fracture of the left wrist more than 5 years ago while she fell down from a staircase. She is postmenopausal for 7 years. Shortness of breath right hip pain and edema of legs persists. Exam/Review of Systems Exam Vitals Vital Signs Date Temp Pulse Resp B/P (MAP) Pulse Ox O2 O2 Flow FiO2 Time Delivery Rate 11/20/18 98.2 89 18 119/66 90 Room Air 08:36 (83) 11/17/18 21 19:49 Intake and Output 11/19/18 11/19/18 11/20/18 1515:00 23:00 07:00 IntakeIntake Total 200 ml 840 ml 500 ml OutputOutput Total 200 ml 400 ml BalanceBalance 200 ml 640 ml 100 ml Results Results 24hrs Laboratory Tests Test 11/20/18 04:49 Sodium Level 135 Potassium Level 3.2 L Chloride Level 90 L Carbon Dioxide Level 37 H Anion Gap 8 Blood Urea Nitrogen 43 H Creatinine 0.97 Est Glomerular Filtrat Rate mL/min 59 L Glucose Level 123 Calcium Level 8.6 Phosphorus Level 6.0 H Magnesium Level 1.8 Medications Medication Current Medications Acetaminophen (Tylenol Tab) 650 mg Q4H PRN PO PAIN LEVEL 1-03/27 Last administered on 11/15/18 22:31; Admin Dose 650 MG; Start 10/21/18 at 23:30 Anastrozole (Arimidex) 1 mg DAILY PO Last administered on 11/19/18 09:07; Admin Dose 1 MG; Start 10/22/18 at 09:00 Benazepril HCl (Lotensin) 5 mg DAILY PO Last administered on 10/30/18 09:27; Admin Dose 5 MG; Start 10/22/18 at 09:00; Status Hold Bisacodyl (Dulcolax Supp) 10 mg Q8 [place] Last administered on 10/31/18 16:42; Admin Dose 10 MG; Start 10/22/18 at 06:00 Carvedilol (Coreg) 3.125 mg BID PO Last administered on 11/19/18 20:22; Admin Dose 3.125 MG; Start 10/22/18 at 09:00 Docusate Sodium (Colace) 100 mg BID PO Last administered on 11/19/18 20:21; Admin Dose 100 MG; Start 10/22/18 at 09:00 Escitalopram Oxalate (Lexapro) 10 mg DAILY PO Last administered on 11/19/18 09:04; Admin Dose 10 MG; Start 10/22/18 at 09:00 Loratadine (Claritin) 10 mg DAILY PO Last administered on 11/19/18 09:03; Admin Dose 10 MG; Start 10/22/18 at 09:00 Magnesium Hydroxide (Milk Of Mag) 30 ml DAILY PO Last administered on 11/14/18 08:41; Admin Dose 30 ML; Start 10/22/18 at 09:00 Oxycodone HCl (Oxycontin) 20 mg Q12 PO Last administered on 11/19/18 20:22; Admin Dose 20 MG; Start 10/22/18 at 09:00 Pantoprazole (Protonix Tab) 40 mg AC BREAKFAST PO Last administered on 11/20/18 06:17; Admin Dose 40 MG; Start 10/22/18 at 07:25 Polyethylene Glycol (Miralax) 17 gm DAILY PO Last administered on 11/19/18 09:05; Admin Dose 17 GM; Start 10/22/18 at 09:00 Simethicone (Mylicon) 80 mg Q8H PO Last administered on 11/15/18 16:12; Admin Dose 80 MG; Start 10/21/18 at 23:30 Spironolactone (Aldactone) 50 mg DAILY PO Last administered on 11/19/18 09:03; Admin Dose 50 MG; Start 10/22/18 at 09:00 Zolpidem Tartrate (Ambien) 10 mg HS PRN PO INSOMNIA Last administered on 11/11/18 23:03; Admin Dose 5 MG; Start 10/21/18 at 23:30 Morphine Sulfate (morphine) 2 mg Q4H PRN IV SEVERE PAIN LEVEL 7-10 Last administered on 11/20/18 04:29; Admin Dose 2 MG; Start 10/22/18 at 01:30 Phenol (Cepastat Lozenge) 1 lozenge Q1H PRN MT sore throat Last administered on 10/31/18 18:34; Admin Dose 1 LOZENGE; Start 10/27/18 at 21:30 Fluticasone Propionate (Flonase 0.05% Nasal) 1 spray BID NASAL Last administered on 11/13/18 21:27; Admin Dose 1 SPRAY; Start 10/29/18 at 21:00 Budesonide (Pulmicort (Neb)) 0.5 mg BID RESP THERAPY HHN Last administered on 11/17/18 19:48; Admin Dose 0.5 MG; Start 10/30/18 at 09:00 Metolazone (Zaroxolyn) 2.5 mg BID@0530,1730 PO Last administered on 11/20/18 04:29; Admin Dose 2.5 MG; Start 11/01/18 at 05:30 Guaifenesin/ Codeine Phosphate (Robitussin Ac Liquid Cup) 10 ml Q4 PO Last administered on 11/19/18 20:22; Admin Dose 10 ML; Start 11/02/18 at 09:00 Enoxaparin Sodium (Lovenox) 40 mg DAILY SC Last administered on 11/19/18 09:09; Admin Dose 40 MG; Start 11/02/18 at 09:00 Ibuprofen (Motrin) 400 mg Q6H PRN PO MILD PAIN(1-3) OR TEMP>38C; Start 11/07/18 at 12:20 Albuterol/ Ipratropium (Duoneb) 3 ml Q8H RESP THERAPY PRN HHN SHORTNESS OF BREATH; Start 11/10/18 at 20:00 Potassium Chloride (Klor-Con 20) 20 meq BID PO Last administered on 11/19/18 20:21; Admin Dose 20 MEQ; Start 11/11/18 at 09:00 Ondansetron HCl (Zofran Inj) 4 mg Q6H PRN IV NAUSEA AND/OR VOMITING Last administered on 11/19/18 20:21; Admin Dose 4 MG; Start 11/19/18 at 20:30 Bumetanide (Bumex) 0.5 mg DAILY PO ; Start 11/20/18 at 09:00 RUSS JEROME MD Nov 20, 2018 09:12
[2018-11-20] MEDS: POLYETHYLENE GLYCOL 17 GM PACKET PO SCH (09:27)
[2018-11-20] MEDS: POTASSIUM CHLORIDE (SR) 20 MEQ TAB PO SCH ×2 (09:27→20:32)
[2018-11-20] MEDS: ESCITALOPRAM 10 MG TAB PO SCH (09:28)
[2018-11-20] MEDS: SPIRONOLACTONE 50 MG TAB PO SCH (09:28)
[2018-11-20] MEDS: oxyCODONE (CR) 20 MG TAB [oxyCONTIN] PO SCH ×2 (09:28→20:32)
[2018-11-20] MEDS: ANASTROZOLE 1 MG TAB PO SCH (09:29)
[2018-11-20] MEDS ORDERED: POTASSIUM CHLORIDE 20 MEQ POWDER FOR ORAL SOLN PO ONE (09:30)
[2018-11-20] MEDS: ENOXAPARIN 40 MG/0.4 ML SYG SC SCH (09:30)
[2018-11-20] MEDS: BUMETANIDE 0.5 MG TAB PO SCH (09:36)
[2018-11-20] MEDS: LORATADINE 10 MG TAB PO SCH (09:36)
[2018-11-20] MEDS: DOCUSATE SODIUM 100 MG CAP PO SCH ×2 (09:36→20:31)
[2018-11-20] MEDS: ALBUTEROL/IPRATROPIUM (NEB) 3 ML AMP HHN PRN ×2 (10:21→14:51)
[2018-11-20] MEDS: BUDESONIDE (NEB) 0.5MG/2ML AMP HHN SCH ×2 (10:32→21:35)
--- NOTE | 2018-11-20 10:53 | CONS ---
Consult Date/Type/Reason Admit Date/Time October 21, 2018 at 17:39 Initial Consult Date 10/21/18 Type of Consult Pulmonary Requesting Provider: RUSS JEROME MD Date/Time of Note DATE: 11/20/18 TIME: 10:53 Subjective Patient comfortable this morning. No respiratory distress Objective Vital Signs Date Temp Pulse Resp B/P (MAP) Pulse Ox O2 O2 Flow FiO2 Time Delivery Rate 11/20/18 90 20 93 21 10:21 11/20/18 98.2 119/66 Room Air 08:36 (83) Intake and Output 11/19/18 11/19/18 11/20/18 1515:00 23:00 07:00 IntakeIntake Total 200 ml 840 ml 500 ml OutputOutput Total 200 ml 400 ml BalanceBalance 200 ml 640 ml 100 ml Exam PHYSICAL EXAMINATION: GENERAL: Well-nourished, well-developed lady, comfortable at rest, no acute distress. VITAL SIGNS: NECK: Supple. No JVD or lymphadenopathy. CARDIAC: S1, S2. No added sounds or murmurs. CHEST: Diminished air entry bilaterally, but no rales or wheezes. ABDOMEN: Soft, nontender. No guarding or rebound. EXTREMITIES: No cyanosis, clubbing, edema. NEUROLOGIC: Generalized weakness. Vent Setting Fraction of Inspired Oxygen pe: 21 Results/Medications Result Diagram: 11/17/18 0456 11/20/18 0449 Results 24 hrs Laboratory Tests Test 11/20/18 04:49 Sodium Level 135 Potassium Level 3.2 L Chloride Level 90 L Carbon Dioxide Level 37 H Anion Gap 8 Blood Urea Nitrogen 43 H Creatinine 0.97 Est Glomerular Filtrat Rate mL/min 59 L Glucose Level 123 Calcium Level 8.6 Phosphorus Level 6.0 H Magnesium Level 1.8 Medications Current Medications Acetaminophen (Tylenol Tab) 650 mg Q4H PRN PO PAIN LEVEL 1-10/10 Last administered on 11/15/18at 22:31; Admin Dose 650 MG; Start 10/21/18 at 23:30 Anastrozole (Arimidex) 1 mg DAILY PO Last administered on 11/20/18at 09:29; Admin Dose 1 MG; Start 10/22/18 at 09:00 Benazepril HCl (Lotensin) 5 mg DAILY PO Last administered on 10/30/18at 09:27; Admin Dose 5 MG; Start 10/22/18 at 09:00; Status Hold Bisacodyl (Dulcolax Supp) 10 mg Q8 [place] Last administered on 10/31/18 16:42; Admin Dose 10 MG; Start 10/22/18 at 06:00 Carvedilol (Coreg) 3.125 mg BID PO Last administered on 11/20/18 09:29; Admin Dose 3.125 MG; Start 10/22/18 at 09:00 Docusate Sodium (Colace) 100 mg BID PO Last administered on 11/20/18 09:36; Admin Dose 100 MG; Start 10/22/18 at 09:00 Escitalopram Oxalate (Lexapro) 10 mg DAILY PO Last administered on 11/20/18 09:28; Admin Dose 10 MG; Start 10/22/18 at 09:00 Loratadine (Claritin) 10 mg DAILY PO Last administered on 11/20/18 09:36; Admin Dose 10 MG; Start 10/22/18 at 09:00 Magnesium Hydroxide (Milk Of Mag) 30 ml DAILY PO Last administered on 11/14/18 08:41; Admin Dose 30 ML; Start 10/22/18 at 09:00 Oxycodone HCl (Oxycontin) 20 mg Q12 PO Last administered on 11/20/18 09:28; A dmin Dose 20 MG; Start 10/22/18 at 09:00 Pantoprazole (Protonix Tab) 40 mg AC BREAKFAST PO Last administered on 11/20/18 06:17; Admin Dose 40 MG; Start 10/22/18 at 07:25 Polyethylene Glycol (Miralax) 17 gm DAILY PO Last administered on 11/20/18 09:27; Admin Dose 17 GM; Start 10/22/18 at 09:00 Simethicone (Mylicon) 80 mg Q8H PO Last administered on 11/15/18 16:12; Admin Dose 80 MG; Start 10/21/18 at 23:30 Spironolactone (Aldactone) 50 mg DAILY PO Last administered on 11/20/18 09:28; Admin Dose 50 MG; Start 10/22/18 at 09:00 Zolpidem Tartrate (Ambien) 10 mg HS PRN PO INSOMNIA Last administered on 11/11/18 23:03; Admin Dose 5 MG; Start 10/21/18 at 23:30 Morphine Sulfate (morphine) 2 mg Q4H PRN IV SEVERE PAIN LEVEL 7-10 Last administered on 11/20/18 04:29; Admin Dose 2 MG; Start 10/22/18 at 01:30 Phenol (Cepastat Lozenge) 1 lozenge Q1H PRN MT sore throat Last administered on 10/31/18 18:34; Admin Dose 1 LOZENGE; Start 10/27/18 at 21:30 Fluticasone Propionate (Flonase 0.05% Nasal) 1 spray BID NASAL Last administered on 11/13/18 21:27; Admin Dose 1 SPRAY; Start 10/29/18 at 21:00 Budesonide (Pulmicort (Neb)) 0.5 mg BID RESP THERAPY HHN Last administered on 11/17/18 19:48; Admin Dose 0.5 MG; Start 10/30/18 at 09:00 Metolazone (Zaroxolyn) 2.5 mg BID@0530,1730 PO Last administered on 11/20/18 04:29; Admin Dose 2.5 MG; Start 11/01/18 at 05:30 Guaifenesin/ Codeine Phosphate (Robitussin Ac Liquid Cup) 10 ml Q4 PO Last administered on 11/19/18 20:22; Admin Dose 10 ML; Start 11/02/18 at 09:00 Enoxaparin Sodium (Lovenox) 40 mg DAILY [place] Last administered on 11/20/18 09:30; Admin Dose 40 MG; Start 11/02/18 at 09:00 Ibuprofen (Motrin) 400 mg Q6H PRN PO MILD PAIN(1-3) OR TEMP>38C; Start 11/07/18 at 12:20 Albuterol/ Ipratropium (Duoneb) 3 ml Q8H RESP THERAPY PRN HHN SHORTNESS OF BREATH Last administered on 11/20/18 10:21; Admin Dose 3 ML; Start 11/10/18 at 20:00 Potassium Chloride (Klor-Con 20) 20 meq BID PO Last administered on 11/20/18 09:27; Admin Dose 20 MEQ; Start 11/11/18 at 09:00 Ondansetron HCl (Zofran Inj) 4 mg Q6H PRN IV NAUSEA AND/OR VOMITING Last administered on 11/19/18at 20:21; Admin Dose 4 MG; Start 11/19/18 at 20:30 Bumetanide (Bumex) 0.5 mg DAILY PO Last administered on 11/20/18at 09:36; Admin Dose 0.5 MG; Start 11/20/18 at 09:00 Assessment/Plan Hospital Course (Demo Recall) IMPRESSION AND PLAN: 1. Recurrent pleural effusion with negative cytology. 2. Metastatic breast cancer. 3. History of congestive cardiac failure with volume overload. The patient should continue with: 1. Supplemental O2 as needed. 2. Hematology/oncology recommendations. 3. Correction of electrolyte imbalance. 4. Diuretics per primary team. 5. Consider placement of a PleurX catheter if pleural effusion continues to rereaccumulate as she has had multiple thoracenteses. LIDYA ALLEN MD, [facility] Nov 20, 2018 10:53
--- NOTE | 2018-11-20 13:34 | PN ---
DATE: 11/20/2018 SUBJECTIVE: The patient had a fall yesterday with fracture of her left arm. The patient was seen by orthopedics and has been placed in a soft splint. No other events noted. OBJECTIVE: VITAL SIGNS: Blood pressure is 102/69, respiration 19, pulse 84, temperature 98.5. HEENT: Head is normocephalic. NECK: Supple. HEART: Regular rate. LUNGS: Show diminished breath sounds at the base. ABDOMEN: Soft, nontender to palpation without rebound or guarding. EXTREMITIES: Negative for clubbing, cyanosis. Trace edema. DERMATOLOGIC: No rashes. MUSCULOSKELETAL: No joint effusion. NEUROLOGIC: No change in exam. MEDICATIONS: Have been reviewed. LABORATORY DATA: From 11/20/2018 was reviewed. ASSESSMENT AND PLAN: 1. Volume overload. Etiology may be multifactorial, possible diastolic heart failure, questionable portal hypertension. The patient appears more euvolemic. We will deescalate Bumex. Monitor electro lytes and renal function closely. 2. Hypokalemia. Continue to monitor and replete. 3. Metabolic alkalemia secondary to diuretic therapy and hypokalemia. Plan is to deescalate Bumex. Continue to replete with potassium chloride. 4. Nonoliguric acute kidney injury. Etiology is secondary to hemodynamics. Continue to monitor niranjan al function closely. 5. Mineral bone disorder. Monitor calcium and phosphorus levels. 6. Hip fracture status post arthroplasty. 7. Breast cancer with metastasis to the liver and spine. Continue to monitor. 8. Status post fall with left radius and ulnar fracture. The patient is currently in a soft splint. Continue to monitor. Follow up with orthopedist. 9. Chronic pain syndrome. 10. Status post bronchitis. Dictated By: ANDRÉS TATUM DO NR/NTS Conf#: [id number] DID#: [id number] CC: RUSS JEROME MD; ALMA CORDOVA MD;*EndCC*
[2018-11-20] MEDS: DIPHENHYDRAMINE 25 MG CAP PO PRN (14:35)
--- NOTE | 2018-11-20 15:01 | CONS ---
Assessment/Plan Assessment/Plan Hospital Course (Demo Recall) IMPRESSION: 1. Congestive heart failure exacerbation would be diastolic, acute on chronic by most recent echo.-now s/p echo this admit with EF 60/small effusion 2. Abnormal electrocardiogram with low voltage, rule out pericardial effusion. 3. Hypertension-currently borderline hypotension 4. Metastatic breast carcinoma. 5. History of pathologic fractures of the leg, status post open reduction and internal fixation. 6. Anemia. 7. Increased BNP consistent with patient's congestive heart failure. 8. Pericardial effusion-small by echo 9. Edema-LE venous UTZneg for DVT 10. Hypokalemia-on aldactone nd daily repletion of K Recc: -On med-surg -Continued on metolazone and aldactone and now PO bumex at lower dose with overall significantly improved volume status and resolution of much of LLE edema but still ongoing assymetric LE edema in leg with fractures -renal and onc following -Continue current coreg as tolerated only and continuing to hold benazepril at this time and follow BP closely -follow K clsoely -D/C planning-awaiting placement Consultation Date/Type/Reason Admit Date/Time October 21, 2018 at 17:39 Initial Consult Date 10/21/18 Type of Consult Cardiology Reason for Consultation CHF Requesting Provider: RUSS JEROME MD Date/Time of Note DATE: 11/20/18 TIME: 14:57 Exam/Review of Systems Vital Signs Vitals Vital Signs Date Temp Pulse Resp B/P (MAP) Pulse Ox O2 O2 Flow FiO2 Time Delivery Rate 11/20/18 80 20 92 21 14:52 11/20/18 98.2 119/66 Room Air 08:36 (83) Intake and Output 11/19/18 11/19/18 11/20/18 1515:00 23:00 07:00 IntakeIntake Total 200 ml 840 ml 500 ml OutputOutput Total 200 ml 400 ml BalanceBalance 200 ml 640 ml 100 ml Exam Exam Review of Systems: CONSTITUTIONAL: No fevers, chills. PULMONARY: No sob CARDIOVASCULAR: No chest pain/palpitations GASTROINTESTINAL: No nausea/vomiting. GENITOURINARY: No hematuria/dysuria. MUSCULOSKELETAL: No myagias/arthalgias. PSYCHIATRIC: The patient denies depression. NEUROLOGIC: No weakness Constitutional: alert, oriented Psych: no complaints Head: normocephalic ENMT: mucosa pink and moist Neck: supple, jvd (9 cm water) Respiratory: diminished breath sounds (at bases?B) Cardiovascular: regular rate and rhythm Gastrointestinal: soft, non-tender Musculoskeletal: muscle tone (mild generalizedweakness) Extremities: edema (R>>L) Labs Result Diagram: 11/17/18 0456 11/20/18 0449 Results 24hrs Laboratory Tests Test 11/20/18 04:49 Sodium Level 135 Potassium Level 3.2 L Chloride Level 90 L Carbon Dioxide Level 37 H Anion Gap 8 Blood Urea Nitrogen 43 H Creatinine 0.97 Est Glomerular Filtrat Rate mL/min 59 L Glucose Level 123 Calcium Level 8.6 Phosphorus Level 6.0 H Magnesium Level 1.8 Medications Medications Current Medications Acetaminophen (Tylenol Tab) 650 mg Q4H PRN PO PAIN LEVEL 1-1010 Last administered on 11/15/18 22:31; Admin Dose 650 MG; Start 10/21/18 at 23:30 Anastrozole (Arimidex) 1 mg DAILY PO Last administered on 11/20/18 09:29; Admin Dose 1 MG; Start 10/22/18 at 09:00 Benazepril HCl (Lotensin) 5 mg DAILY PO Last administered on 10/30/18 09:27; Admin Dose 5 MG; Start 10/22/18 at 09:00; Status Hold Bisacodyl (Dulcolax Supp) 10 mg Q8 [place] Last administered on 10/31/18 16:42; Admin Dose 10 MG; Start 10/22/18 at 06:00 Carvedilol (Coreg) 3.125 mg BID PO Last administered on 11/20/18 09:29; Admin Dose 3.125 MG; Start 10/22/18 at 09:00 Docusate Sodium (Colace) 100 mg BID PO Last administered on 11/20/18 09:36; Admin Dose 100 MG; Start 10/22/18 at 09:00 Escitalopram Oxalate (Lexapro) 10 mg DAILY PO Last administered on 11/20/18 09:28; Admin Dose 10 MG; Start 10/22/18 at 09:00 Loratadine (Claritin) 10 mg DAILY PO Last administered on 11/20/18 09:36; Admin Dose 10 MG; Start 10/22/18 at 09:00 Magnesium Hydroxide (Milk Of Mag) 30 ml DAILY PO Last administered on 11/14/18 08:41; Admin Dose 30 ML; Start 10/22/18 at 09:00 Oxycodone HCl (Oxycontin) 20 mg Q12 PO Last administered on 11/20/18 09:28; Admin Dose 20 MG; Start 10/22/18 at 09:00 Pantoprazole (Protonix Tab) 40 mg AC BREAKFAST PO Last administered on 11/20/18 06:17; Admin Dose 40 MG; Start 10/22/18 at 07:25 Polyethylene Glycol (Miralax) 17 gm DAILY PO Last administered on 11/20/18 09:27; Admin Dose 17 GM; Start 10/22/18 at 09:00 Simethicone (Mylicon) 80 mg Q8H PO Last administered on 11/15/18 16:12; Admin Dose 80 MG; Start 10/21/18 at 23:30 Spironolactone (Aldactone) 50 mg DAILY PO Last administered on 11/20/18 09:28; Admin Dose 50 MG; Start 10/22/18 at 09:00 Zolpidem Tartrate (Ambien) 10 mg HS PRN PO INSOMNIA Last administered on 11/11/18 23:03; Admin Dose 5 MG; Start 10/21/18 at 23:30 Morphine Sulfate (morphine) 2 mg Q4H PRN IV SEVERE PAIN LEVEL 7-10 Last administered on 11/20/18 11:28; Admin Dose 2 MG; Start 10/22/18 at 01:30 Phenol (Cepastat Lozenge) 1 lozenge Q1H PRN MT sore throat Last administered on 10/31/18 18:34; Admin Dose 1 LOZENGE; Start 10/27/18 at 21:30 Fluticasone Propionate (Flonase 0.05% Nasal) 1 spray BID NASAL Last adm inistered on 11/13/18 21:27; Admin Dose 1 SPRAY; Start 10/29/18 at 21:00 Budesonide (Pulmicort (Neb)) 0.5 mg BID RESP THERAPY HHN Last administered on 11/20/18 10:32; Admin Dose 0.5 MG; Start 10/30/18 at 09:00 Metolazone (Zaroxolyn) 2.5 mg BID@5692,3787 PO Last administered on 11/20/18 04:29; Admin Dose 2.5 MG; Start 11/01/18 at 05:30 Guaifenesin/ Codeine Phosphate (Robitussin Ac Liquid Cup) 10 ml Q4 PO Last administered on 11/19/18 20:22; Admin Dose 10 ML; Start 11/02/18 at 09:00 Enoxaparin Sodium (Lovenox) 40 mg DAILY [place] Last administered on 11/20/18 09:30; Admin Dose 40 MG; Start 11/02/18 at 09:00 Ibuprofen (Motrin) 400 mg Q6H PRN PO MILD PAIN(1-3) OR TEMP>38C; Start 11/07/18 at 12:20 Albuterol/ Ipratropium (Duoneb) 3 ml Q8H RESP THERAPY PRN HHN SHORTNESS OF BREATH Last administered on 11/20/18 14:51; Admin Dose 3 ML; Start 11/10/18 at 20:00 Potassium Chloride (Klor-Con 20) 20 meq BID PO Last administered on 11/20/18 09:27; Admin Dose 20 MEQ; Start 11/11/18 at 09:00 Ondansetron HCl (Zofran Inj) 4 mg Q6H PRN IV NAUSEA AND/OR VOMITING Last administered on 11/19/18 20:21; Admin Dose 4 MG; Start 11/19/18 at 20:30 Bumetanide (Bumex) 0.5 mg DAILY PO Last administered on 11/20/18 09:36; Admin Dose 0.5 MG; Start 11/20/18 at 09:00 Diphenhydramine HCl (Benadryl) 25 mg Q8H PRN PO ITCHING Last administered on 11/20/18 14:35; Admin Dose 25 MG; Start 11/20/18 at 14:00 KAMILA TREESA Nov 20, 2018 15:01
[2018-11-20 15:29] VITALS: BP 110/86; PULSE 91; RESP 18
[2018-11-20] MEDS ORDERED: GUAIFENESIN/CODEINE 5ML CUP PO PRN (17:30)
[2018-11-20] MEDS ORDERED: BISACODYL 10 MG SUPP PR PRN (17:30)
[2018-11-20] MEDS: MAGNESIUM HYDROXIDE 30ML CUP PO PRN (18:44)
[2018-11-20 19:55] VITALS: BP 97/65; PULSE 88; RESP 18
[2018-11-21] MEDS: ACETAMINOPHEN 325 MG TAB PO PRN (00:06)
[2018-11-21] MEDS: DIPHENHYDRAMINE 25 MG CAP PO PRN ×2 (00:06→12:49)
[2018-11-21 01:00] VITALS: BP 90/61; PULSE 93; RESP 20
[2018-11-21] MEDS: PANTOPRAZOLE (EC) 40 MG TAB PO SCH (05:05)
[2018-11-21] MEDS: METOLAZONE 2.5 MG TAB PO SCH ×2 (05:07→17:46)
[2018-11-21 07:23] VITALS: BP 127/66; PULSE 79; RESP 18
[2018-11-21] MEDS: LORATADINE 10 MG TAB PO SCH (08:42)
[2018-11-21] MEDS: SPIRONOLACTONE 50 MG TAB PO SCH (08:42)
[2018-11-21] MEDS: DOCUSATE SODIUM 100 MG CAP PO SCH ×2 (08:42→22:07)
[2018-11-21] MEDS: ESCITALOPRAM 10 MG TAB PO SCH (08:43)
[2018-11-21] MEDS: POTASSIUM CHLORIDE (SR) 20 MEQ TAB PO SCH ×2 (08:43→22:08)
[2018-11-21] MEDS: POLYETHYLENE GLYCOL 17 GM PACKET PO SCH (08:43)
[2018-11-21] MEDS: BUMETANIDE 0.5 MG TAB PO SCH (08:43)
[2018-11-21] MEDS: oxyCODONE (CR) 20 MG TAB [oxyCONTIN] PO SCH ×2 (08:43→22:05)
[2018-11-21] MEDS: ANASTROZOLE 1 MG TAB PO SCH (08:44)
[2018-11-21] MEDS: ENOXAPARIN 40 MG/0.4 ML SYG SC SCH (08:45)
--- NOTE | 2018-11-21 08:48 | PN ---
DATE: 11/21/2018 SUBJECTIVE: The patient is stable, no events overnight. OBJECTIVE: VITAL SIGNS: Blood pressure is 127/66, respiration 18, pulse 79, temperature 97.4. HEENT: Head is normocephalic. NECK: Supple. HEART: Regular rate. LUNGS: Show diminished breath sounds at the base. ABDOMEN: Soft, nontender to palpation without rebound or guarding. EXTREMITIES: Negative for clubbing, cyanosis. Positive edema. DERMATOLOGIC: No rashes. MUSCULOSKELETAL: No joint effusion. NEUROLOGIC: No change in exam. MEDICATIONS: The patient's medications have been reviewed. LABORATORY DATA: Has been reviewed. ASSESSMENT AND PLAN: 1. Volume overload, improving. Etiology is likely multifactorial secondary to diastolic heart failu re, questionable portal hypertension. The patient appears euvolemic. We will continue current diure tic regimen, adjust as needed. Monitor renal function closely. 2. Hyperkalemia, improved. Continue to monitor and replete as needed. 3. Metabolic alkalemia secondary to diuretic therapy, hyperkalemia. Continue to monitor. Consider another course of Diamox. 4. Nonoliguric acute kidney injury. Etiology is secondary to hemodynamics. Renal function is impro bill. Continue to monitor. 5. Mineral bone disorder. Monitor calcium and phosphorus levels. 6. Hip fracture, status post arthroplasty. 7. Breast cancer with metastasis. Continue to monitor. 8. Left radial and ulnar fracture. Continue to monitor. The patient is in a soft splint. 9. Chronic pain syndrome. 10. Status post bronchitis. Dictated By: ANDRSÉ TATUM DO NR/NTS Conf#: [id number] DID#: [id number] CC: RUSS JEROME MD; ALMA CORDOVA MD;*EndCC*
[2018-11-21] MEDS: BUDESONIDE (NEB) 0.5MG/2ML AMP HHN SCH ×2 (09:00→19:50)
[2018-11-21] MEDS: FLUTICASONE 0.05% 16 GM NAS SPRAY NASAL SCH ×2 (09:00→21:00)
--- NOTE | 2018-11-21 10:18 | PN ---
Date/Time of Note Date/Time of Note DATE: 11/21/18 TIME: 10:18 Assessment/Plan VTE Prophylaxis Risk score (from Ns)>0 risk: 6 SCD applied (from Ns): Yes SCD contraindicated: other Pharmacological prophylaxis: LMWH Lines/Catheters IV Catheter Type ([facility] port a cath Central line still needed: Yes Urinary Cath still in place: No Reason Cath still needed: urinary retention Assessment/Plan Hospital Course Rrecurrent thoracentesis from left pleural cavity.Bronchitis got treated slowly. CHF improved but not totally gone. Continue current chemotherapy bronchodilator therapy correction of fluid his electrolytes and follow the algorithm for a total synthesis planning. Assessment/Plan 1. PRIMARY ADENOCARCINOMA of the left breast. MULTIPLE BONY METS, PULMONARY METS;LIVER METS CHEMO ON HOLD; PT HAS A VERY GOOD RESPONSE TO CHEMO AND AI 2. Severe pain in the interscapular and lumbar sacral area most probably metastatic lesion possible femoral fracture. pathologic fracture of T9 with 60% of loss of height. Neurosurgical f/u. 3. Obesity. 4. Weight loss 60 pounds during the last 2 years by diet 5. PMS. 6. Myopia. 7. Anemia chronic disease with a drop of her hematocrit to 27; Latest results 28. Will recheck tomorrow;Leukopenia.Thrombocytopenia; 8. Anxiety disorder. Claustrophobia. Increase Ativan to 1 mg every 8 as needed at Lexapro 10 mg daily. 9. Posttraumatic stress disorder. 10. Pain in the left forearm with a history of fracture of ulna and radius. 11. Tachycardia-resolved 12. Hypoxemia at night marginal improved after 2 L of nasal cannula oxygen. 13. Deconditioning 14. 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 MRI: 09/28/18:diffuse osseous metastatic disease with multiple pathologic compression fractures at least involving the T4, T5, T7, T9 and T11 levels. There is likely mild cortical breakthrough at several levels resulting in mild central canal narrowing. No gross evidence of cord compression is seen.. 15. Pain syndrome. Today the most painful zone is in the right hip area. 16. Hyponatremia-corrected; today and hold Aldactone today. 17. Leucopenia-improved. 18. Neutropenia with occasional fever and chills. Last chemotherapy 5 days ago. 19. Hypoalbuminemia. 20.Right sided cp after catheter insertion and correction less discomfort. 21. Decreased edema both lower extremities with [id number] with Pleural and Pericardial effusion. 22. pain syndrome 23.bilateral pleural effusions ; s/p recurrent left thoracentesis Reaccumulation of the pleural fluid. 24. Systolic over diastolic congestive heart failure with a right more than left lower extremity swelling with no DVT in latest venous Doppler. 25. Swelling of the left forearm-persist. Cellulitis of the left forearm with decreased edema anteriorly.-Today it is less edematous 26. Pathologic fracture of the right hip;s/p hemiarthroplasty of right hip . 27. Dizziness 28. Chills. 29. Memory impairment. 30. Upper respiratory infection pharyngitis with dry cough. 31. Decreased voice with wheezing. 32. Headaches 33. Hypokalemia- reoccured. Result Diagram: 11/17/18 0456 11/21/18 0502 Results 24hrs Laboratory Tests Test 11/21/18 05:02 Sodium Level 136 Potassium Level 3.7 Chloride Level 92 L Carbon Dioxide Level 38 H Anion Gap 6 Blood Urea Nitrogen 44 H Creatinine 0.94 Est Glomerular Filtrat Rate mL/min > 60 Glucose Level 115 Calcium Level 8.7 Ionized Calcium (Measured) 1.1 Phosphorus Level 5.3 H Magnesium Level 2.1 Subjective 24 Hr Interval Summary Free Text/Dictation in pain. Constitutional: improved; No no complaints, No chills, No diaphoresis, No disoriented, No febrile, No poor po, No requiring IVF, No requiring O2, No other Eyes: No no complaints, No pain, No discharge, No redness, No visual change, No other ENT: No no complaints, No bleeding, No pain, No congestion, No discharge, No dysphagia, No sore throat, No other Respiratory: cough, pleuritic pain, shortness of breath; No no complaints, No pain, No sputum, No wheezing, No other Cardiovascular: chest pain Gastrointestinal: constipation; No no complaints, No pain, No blood, No decreased appetite, No diarrhea, No flatus, No nausea, No passing stool, No vomiting, No other Genitourinary: dysuria, discharge; No no complaints, No bleeding, No flank pain, No hematuria, No other Musculoskeletal: back pain, bone/joint pain Skin: No no complaints, No bruising, No erythema, No laceration, No pruritis, No rash, No skin lesions, No other Neurologic: dizziness, headache; No no complaints, No confusion, No focal-weakness, No syncope, No seizure, No other Endocrine: No no complaints, No polyuria, No polydypsia, No dry skin, No temp intolerance, No other Exam/Review of Systems Exam Vitals Vital Signs Date Temp Pulse Resp B/P (MAP) Pulse Ox O2 O2 Flow FiO2 Time Delivery Rate 11/21/18 97.4 79 18 127/66 96 Room Air 07:23 (86) 11/21/18 2.0 06:36 11/20/18 21 21:35 Intake and Output 11/20/18 11/20/18 11/21/18 1515:00 23:00 07:00 IntakeIntake Total 200 ml 520 ml 150 ml BalanceBalance 200 ml 520 ml 150 ml Constitutional: alert, oriented, well developed, distress, frail Psych: anxiety; No no complaints, No nl mood/affect, No confusion, No depression, No suicidal, No other Head: normocephalic, atraumatic Eyes: EOMI, nl lids; No nl conjunctiva, No nl sclera, No PERRL, No icteric, No fundi, disc, No other ENMT: No nl external ears & nose, No nl lips & teeth, No nl nasal mucosa & septum, No mucosa pink and moist, No intubated, No tympanic membranes, No other Neck: No supple, No non-tender, No jvd, No bruits, No masses, No thyromegaly, No nuchal rigidity, No other Respiratory: clear to auscultation, congested cough, diminished breath sounds; No normal air movement, No crackles/rales, No intercostal retraction, No labored breathing, No respirations, No tactile fremitus, No wheezing, No other Cardiovascular: regular rate and rhythm, edema, systolic murmur; No nl pulses, No bruits, No diastolic murmur, No gallop, No irregular rhythm, No jugular venous distention (JVD), No murmurs/extra sounds, No rub, No S3, No S4, No other Gastrointestinal: soft, nl liver, spleen, bowel sounds; No non-tender, No ascites, No distended, No firm, No hepatomegaly, No mass, No rebound or guarding, No splenomegaly, No surgical scars, No tender, No other Genitourinary - Female: No nl adnexae, No nl external genitalia, No CMT, No CVA tenderness, No uterus, No other Musculoskeletal: muscle tone, muscle weakness; No nl extremities to inspection, No nl gait and stance, No joint tenderness, No range of motion, No spine non-tender, No swelling, No other Results Results 24hrs Laboratory Tests Test 11/21/18 05:02 Sodium Level 136 Potassium Level 3.7 Chloride Level 92 L Carbon Dioxide Level 38 H Anion Gap 6 Blood Urea Nitrogen 44 H Creatinine 0.94 Est Glomerular Filtrat Rate mL/min > 60 Glucose Level 115 Calcium Level 8.7 Ionized Calcium (Measured) 1.1 Phosphorus Level 5.3 H Magnesium Level 2.1 Medications Medication Current Medications Acetaminophen (Tylenol Tab) 650 mg Q4H PRN PO PAIN LEVEL 1-10 Last administered on 11/21/18 00:06; Admin Dose 650 MG; Start 10/21/18 at 23:30 Anastrozole (Arimidex) 1 mg DAILY PO Last administered on 11/21/18 08:44; Admin Dose 1 MG; Start 10/22/18 at 09:00 Benazepril HCl (Lotensin) 5 mg DAILY PO Last administered on 10/30/18 09:27; Admin Dose 5 MG; Start 10/22/18 at 09:00; Status Hold Carvedilol (Coreg) 3.125 mg BID PO Last administered on 11/21/18 08:46; Admin Dose 3.125 MG; Start 10/22/18 at 09:00 Docusate Sodium (Colace) 100 mg BID PO Last administered on 11/21/18 08:42; Admin Dose 100 MG; Start 10/22/18 at 09:00 Escitalopram Oxalate (Lexapro) 10 mg DAILY PO Last administered on 11/21/18 08:43; Admin Dose 10 MG; Start 10/22/18 at 09:00 Loratadine (Claritin) 10 mg DAILY PO Last administered on 11/21/18 08:42; Admin Dose 10 MG; Start 10/22/18 at 09:00 Oxycodone HCl (Oxycontin) 20 mg Q12 PO Last administered on 11/21/18 08:43; Admin Dose 20 MG; Start 10/22/18 at 09:00 Pantoprazole (Protonix Tab) 40 mg AC BREAKFAST PO Last administered on 11/21/18 05:05; Admin Dose 40 MG; Start 10/22/18 at 07:25 Polyethylene Glycol (Miralax) 17 gm DAILY PO Last administered on 11/21/18 08:43; Admin Dose 17 GM; Start 10/22/18 at 09:00 Spironolactone (Aldactone) 50 mg DAILY PO Last administered on 11/21/18 08:42; Admin Dose 50 MG; Start 10/22/18 at 09:00 Zolpidem Tartrate (Ambien) 10 mg HS PRN PO INSOMNIA Last administered on 11/11/18 23:03; Admin Dose 5 MG; Start 10/21/18 at 23:30 Morphine Sulfate (morphine) 2 mg Q4H PRN IV SEVERE PAIN LEVEL 7-10 Last administered on 11/20/18 11:28; Admin Dose 2 MG; Start 10/22/18 at 01:30 Phenol (Cepastat Lozenge) 1 lozenge Q1H PRN MT sore throat Last administered on 10/31/18 18:34; Admin Dose 1 LOZENGE; Start 10/27/18 at 21:30 Fluticasone Propionate (Flonase 0.05% Nasal) 1 spray BID NASAL Last administered on 11/13/18 21:27; Admin Dose 1 SPRAY; Start 10/29/18 at 21:00 Budesonide (Pulmicort (Neb)) 0.5 mg BID RESP THERAPY HHN Last administered on 11/20/18 21:35; Admin Dose 0.5 MG; Start 10/30/18 at 09:00 Metolazone (Zaroxolyn) 2.5 mg BID@0530,1730 PO Last administered on 11/21/18 05:07; Admin Dose 2.5 MG; Start 11/01/18 at 05:30 Enoxaparin Sodium (Lovenox) 40 mg DAILY SC Last administered on 11/21/18 08:45; Admin Dose 40 MG; Start 11/02/18 at 09:00 Ibuprofen (Motrin) 400 mg Q6H PRN PO MILD PAIN(1-3) OR TEMP>38C; Start 11/07/18 at 12:20 Albuterol/ Ipratropium (Duoneb) 3 ml Q8H RESP THERAPY PRN HHN SHORTNESS OF BREATH Last administered on 11/20/18at 14:51; Admin Dose 3 ML; Start 11/10/18 at 20:00 Potassium Chloride (Klor-Con 20) 20 meq BID PO Last administered on 11/21/18 08:43; Admin Dose 20 MEQ; Start 11/11/18 at 09:00 Ondansetron HCl (Zofran Inj) 4 mg Q6H PRN IV NAUSEA AND/OR VOMITING Last administered on 11/19/18at 20:21; Admin Dose 4 MG; Start 11/19/18 at 20:30 Bumetanide (Bumex) 0.5 mg DAILY PO Last administered on 11/21/18 08:43; Admin Dose 0.5 MG; Start 11/20/18 at 09:00 Diphenhydramine HCl (Benadryl) 25 mg Q8H PRN PO ITCHING Last administered on 11/21/18at 00:06; Admin Dose 25 MG; Start 11/20/18 at 14:00 Bisacodyl (Dulcolax Supp) 10 mg Q8H PRN [place] CONSTIPATION; Start 11/20/18 at 17:30 Guaifenesin/ Codeine Phosphate (Robitussin Ac Liquid Cup) 10 ml Q4H PRN PO COUGH; Start 11/20/18 at 17:30 Magnesium Hydroxide (Milk Of Mag) 30 ml DAILY PRN PO CONSTIPATION Last administered on 11/20/18at 18:44; Admin Dose 30 ML; Start 11/20/18 at 17:30 Simethicone (Mylicon) 80 mg Q8H PRN PO INDIGESTION; Start 11/20/18 at 23:30 Miscellaneous Information (*Order Clarification Bulletin) MEDICATION REQUIRES CLARIFICATI... Q8H XX ; Start 11/21/18 at 08:00 Miscellaneous Information (*Order Clarification Bulletin) MEDICATION REQUIRES CLARIFICATI... Q8H XX ; Start 11/21/18 at 10:00 RUSS JEROME MD Nov 21, 2018 10:18
--- NOTE | 2018-11-21 13:52 | CONS ---
Assessment/Plan Assessment/Plan Hospital Course (Demo Recall) IMPRESSION: 1. Congestive heart failure exacerbation would be diastolic, acute on chronic by most recent echo.-now s/p echo this admit with EF 60/small effusion 2. Abnormal electrocardiogram with low voltage, rule out pericardial effusion. 3. Hypertension-currently borderline hypotension 4. Metastatic breast carcinoma. 5. History of pathologic fractures of the leg, status post open reduction and internal fixation. 6. Anemia. 7. Increased BNP consistent with patient's congestive heart failure. 8. Pericardial effusion-small by echo 9. Edema-LE venous UTZneg for DVT 10. Hypokalemia-on aldactone nd daily repletion of K 11.Wrist ffracture acute by films 11/20 Recc: -On med-surg -Continued on metolazone and aldactone and now PO bumex at lower dose with overall significantly improved volume status and resolution of much of LLE edema but still ongoing assymetric LE edema in leg with fractures -renal and onc following -Continue current coreg as tolerated only and continuing to hold benazepril at this time and follow BP closely -follow K clsoely -ortho evaluation ongoing for acute wrist fracture Consultation Date/Type/Reason Admit Date/Time October 21, 2018 at 17:39 Initial Consult Date 10/21/18 Type of Consult Cardiology Reason for Consultation CHF Requesting Provider: RUSS JEROME MD Date/Time of Note DATE: 11/21/18 TIME: 13:50 Exam/Review of Systems Vital Signs Vitals Vital Signs Date Temp Pulse Resp B/P (MAP) Pulse Ox O2 O2 Flow FiO2 Time Delivery Rate 11/21/18 97.4 79 18 127/66 96 Room Air 07:23 (86) 11/21/18 2.0 06:36 11/20/18 21 21:35 Intake and Output 11/20/18 11/20/18 11/21/18 1515:00 23:00 07:00 IntakeIntake Total 200 ml 520 ml 150 ml BalanceBalance 200 ml 520 ml 150 ml Exam Exam Review of Systems: CONSTITUTIONAL: No fevers, chills. PULMONARY: No sob CARDIOVASCULAR: No chest pain/palpitations GASTROINTESTINAL: No nausea/vomiting. GENITOURINARY: No hematuria/dysuria. MUSCULOSKELETAL: wrist pain PSYCHIATRIC: The patient denies depression. NEUROLOGIC: No weakness Constitutional: alert, oriented Psych: no complaints Head: normocephalic ENMT: mucosa pink and moist Neck: supple, jvd (9 cm water) Respiratory: diminished breath sounds (at bases/B) Cardiovascular: regular rate and rhythm Gastrointestinal: soft, non-tender Musculoskeletal: muscle weakness (mild generalized) Extremities: edema (R>L) Labs Result Diagram: 11/17/18 0456 11/21/18 0502 Results 24hrs Laboratory Tests Test 11/21/18 05:02 11/21/18 11:26 Sodium Level 136 Potassium Level 3.7 Chloride Level 92 L Carbon Dioxide Level 38 H Anion Gap 6 Blood Urea Nitrogen 44 H Creatinine 0.94 Est Glomerular Filtrat Rate mL/min > 60 Glucose Level 115 Calcium Level 8.7 Ionized Calcium (Measured) 1.1 Phosphorus Level 5.3 H Magnesium Level 2.1 Parathyroid Hormone 18.1 L Lab Scanned Report REFERENCE LAB Medications Medications Current Medications Acetaminophen (Tylenol Tab) 650 mg Q4H PRN PO PAIN LEVEL 1-1010 Last administered on 11/21/18at 00:06; Admin Dose 650 MG; Start 10/21/18 at 23:30 Anastrozole (Arimidex) 1 mg DAILY PO Last administered on 11/21/18 08:44; Admin Dose 1 MG; Start 10/22/18 at 09:00 Benazepril HCl (Lotensin) 5 mg DAILY PO Last administered on 10/30/18at 09:27; Admin Dose 5 MG; Start 10/22/18 at 09:00; Status Hold Carvedilol (Coreg) 3.125 mg BID PO Last administered on 11/21/18at 08:46; Admin Dose 3.125 MG; Start 10/22/18 at 09:00 Docusate Sodium (Colace) 100 mg BID PO Last administered on 11/21/18 08:42; Admin Dose 100 MG; Start 10/22/18 at 09:00 Escitalopram Oxalate (Lexapro) 10 mg DAILY PO Last administered on 11/21/18 08:43; Admin Dose 10 MG; Start 10/22/18 at 09:00 Loratadine (Claritin) 10 mg DAILY PO Last administered on 11/21/18 08:42; Admin Dose 10 MG; Start 10/22/18 at 09:00 Oxycodone HCl (Oxycontin) 20 mg Q12 PO Last administered on 11/21/18 08:43; Admin Dose 20 MG; Start 10/22/18 at 09:00 Pantoprazole (Protonix Tab) 40 mg AC BREAKFAST PO Last administered on 11/21/18 05:05; Admin Dose 40 MG; Start 10/22/18 at 07:25 Polyethylene Glycol (Miralax) 17 gm DAILY PO Last administered on 11/21/18 08:43; Admin Dose 17 GM; Start 10/22/18 at 09:00 Spironolactone (Aldactone) 50 mg DAILY PO Last administered on 11/21/18 08:42; Admin Dose 50 MG; Start 10/22/18 at 09:00 Zolpidem Tartrate (Ambien) 10 mg HS PRN PO INSOMNIA Last administered on 11/11/18 23:03; Admin Dose 5 MG; Start 10/21/18 at 23:30 Morphine Sulfate (morphine) 2 mg Q4H PRN IV SEVERE PAIN LEVEL 7-10 Last administered on 11/20/18 11:28; Admin Dose 2 MG; Start 10/22/18 at 01:30 Phenol (Cepastat Lozenge) 1 lozenge Q1H PRN MT sore throat Last administered on 10/31/18 18:34; Admin Dose 1 LOZENGE; Start 10/27/18 at 21:30 Fluticasone Propionate (Flonase 0.05% Nasal) 1 spray BID NASAL Last administered on 11/13/18 21:27; Admin Dose 1 SPRAY; Start 10/29/18 at 21:00 Budesonide (Pulmicort (Neb)) 0.5 mg BID RESP THERAPY HHN Last administered on 11/20/18 21:35; Admin Dose 0.5 MG; Start 10/30/18 at 09:00 Metolazone (Zaroxolyn) 2.5 mg BID@0530,1730 PO Last administered on 11/21/18 05:07; Admin Dose 2.5 MG; Start 11/01/18 at 05:30 Enoxaparin Sodium (Lovenox) 40 mg DAILY SC Last administered on 11/21/18 08:45; Admin Dose 40 MG; Start 11/02/18 at 09:00 Ibuprofen (Motrin) 400 mg Q6H PRN PO MILD PAIN(1-3) OR TEMP>38C; Start 11/07/18 at 12:20 Albuterol/ Ipratropium (Duoneb) 3 ml Q8H RESP THERAPY PRN HHN SHORTNESS OF BREATH Last administered on 11/20/18 14:51; Admin Dose 3 ML; Start 11/10/18 at 20:00 Potassium Chloride (Klor-Con 20) 20 meq BID PO Last administered on 11/21/18 08:43; Admin Dose 20 MEQ; Start 11/11/18 at 09:00 Ondansetron HCl (Zofran Inj) 4 mg Q6H PRN IV NAUSEA AND/OR VOMITING Last administered on 11/19/18 20:21; Admin Dose 4 MG; Start 11/19/18 at 20:30 Bumetanide (Bumex) 0.5 mg DAILY PO Last administered on 11/21/18 08:43; Admin Dose 0.5 MG; Start 11/20/18 at 09:00 Diphenhydramine HCl (Benadryl) 25 mg Q8H PRN PO ITCHING Last administered on 11/21/18 12:49; Admin Dose 25 MG; Start 11/20/18 at 14:00 Bisacodyl (Dulcolax Supp) 10 mg Q8H PRN [place] CONSTIPATION; Start 11/20/18 at 17:30 Guaifenesin/ Codeine Phosphate (Robitussin Ac Liquid Cup) 10 ml Q4H PRN PO C OUGH; Start 11/20/18 at 17:30 Magnesium Hydroxide (Milk Of Mag) 30 ml DAILY PRN PO CONSTIPATION Last administered on 11/20/18 18:44; Admin Dose 30 ML; Start 11/20/18 at 17:30 Simethicone (Mylicon) 80 mg Q8H PRN PO INDIGESTION; Start 11/20/18 at 23:30 Miscellaneous Information (*Order Clarification Bulletin) MEDICATION REQUIRES CLARIFICATI... Q8H XX ; Start 11/21/18 at 08:00 Miscellaneous Information (*Order Clarification Bulletin) MEDICATION REQUIRES CLARIFICATI... Q8H XX ; Start 11/21/18 at 10:00 KAMILA TERESA Nov 21, 2018 13:52
[2018-11-21 14:38] VITALS: BP 104/60; PULSE 84; RESP 19
--- NOTE | 2018-11-21 17:51 | CONS ---
Assessment/Plan Assessment/Plan Problems: (1) Fracture of distal end of left radius and ulna Status: Acute Comment: We do not have the equipment hospital performed for performing formal bone density study but I do not actually believe that is important given the overall total clinical picture. Patient is already been receiving bisphosphonate therapy. Based on prior treatments for breast cancer she would not be a candidate for either Forteo or Tymlos therapy. As such that would then raise a question about whether or not use Prolia 60 mg subcu every 6 months or raloxifene. I do not believe that the raloxifene is necessarily the best choice given that we are already going through the treatments for the cancer. As such if we are going to do anything we would use Prolia but that is actually not imp ortant right now given the bisphosphonate therapy the patient is recently received. As such I would not change her therapeutics at this time. Qualifiers: Qualified Codes: S52.502A - Unspecified fracture of the lower end of left radius, initial encounter for closed fracture; S52.602A - Unspecified fracture of lower end of left ulna, initial encounter for closed fracture (2) Primary cancer of left breast with metastasis to other site Status: Chronic Comment: As per oncology consult (3) Recurrent pleural effusion on left Status: Chronic Comment: Noted. Consultation Date/Type/Reason Admit Date/Time October 21, 2018 at 17:39 Date of Consultation: Nov 21, 2018 Type of Consult Endocrinology Reason for Consultation Osteoporosis with recurrent wrist fracture Requesting Provider: RUSS JEROME MD Date/Time of Note DATE: 11/21/18 TIME: 17:47 Hx of Present Illness 58-year-old woman with a history of fracture of the wrist after a fall on outstretched hand (FOOSH) injury several years ago. Intercurrently she has had metastatic breast cancer and actually had a pathologic fracture of the hip. While in the hospital she had a slip and fall with an additional FOOSH injury of the same wrist and fracture. I was asked whether or not she could be considered a candidate for osteoporosis treatments. I have contacted her oncologist who reports that she has been receiving bisphosphonate treatments on a regular basis as part and parcel of her management for the breast cancer. Please note she is not hypercalcemic at this time Past Medical History Medical History: angina, cancer (Metastatic breast cancer), congestive heart failure, coronary artery disease, gallstones, GERD, GI bleed, hypertension, irritable bowel syndrome, pancreatitis, peptic ulcer disease Home Meds Reported Medications Tuberculin,Purif.prot.deriv. (Tubersol) 5 Tub Unit/0.1 Ml Vial, 0.1 ML ID, VIAL INJECT QHS EVERY 10 DAYS FOR PPD SCREENING FOR 11 DAYS READ IN 48 HOURS,IF NEGATIVE 2STEP IN 7 DAYS FROM FIRST DOSE. 10/21/18 Acetaminophen* (Tylenol*) 325 Mg Tablet, 650 MG PO Q4H PRN for PAIN LEVEL 1- 03/27, TAB 10/21/18 Spironolactone* (Aldactone*) 50 Mg Tablet, 50 MG PO DAILY, #30 TAB HOLD FOR SBP<110 10/21/18 Simethicone* (Mylicon*) 80 Mg Tab, 80 MG PO Q8H, TAB 10/21/18 Olopatadine* (Patanol* Ophth) 0.1% - 5 Ml Drops, 1 DROP BOTH EYES BID, EA 10/21/18 Hydrocodone/Acetaminophen (Olancha 10-325 Tablet) 1 Each Tablet, 1 EACH PO Q4H, TAB 10/21/18 Loratadine* (Loratadine*) 10 Mg Tablet, 10 MG PO DAILY for FOR 3 MONTHS, #30 TAB 10/21/18 Lidocaine (Lidocaine) 1 Each Adh..patch, 1 EACH TP DAILY 10/21/18 Ipratropium-Albuterol (Ipratropium-Albuterol) 0.5-3 Mg/3 Ml Ampul.neb, 3 ML INH ALATION Q8H, #30 VIAL 10/21/18 Furosemide* (Furosemide*) 40 Mg Tablet, 40 MG PO BID, TAB HOLD FOR SBP<110 10/21/18 Na Phos,M-B/Na Phos,Di-Ba (Fleet Enema Extra) Unknown Strength Enema, 1 APPLIC RC NEEDED for CONSTIPATION, ENEMA 10/21/18 Bisacodyl (Dulcolax) 10 Mg Supp.rect, 10 MG RC NEEDED, SUPP.RECT 10/21/18 Potassium Chloride* (Potassium Chloride*) 20 Meq Tablet.er, 20 MEQ PO DAILY, TAB.SA 09/09/18 Pantoprazole* (Pantoprazole*) 40 Mg Tablet.dr, 40 MG PO AC BREAKFAST, TAB 08/22/18 Oxycodone Hcl* (Oxycontin*) 20 Mg Tab.er.12h, 20 MG PO Q12, TAB 08/22/18 Amlodipine Besylate* (Norvasc*) 5 Mg Tablet, 5 MG PO DAILY, TAB HOLD FOR SBP <110. 08/22/18 Polyethylene Glycol* (Miralax*) 17 Gm Powd.pack, 17 GM PO DAILY, #60 PACKET 08/22/18 Magnesium Hydroxide* (Milk Of Magnesia*) 400 Mg/5 Ml Oral.susp, 30 ML PO DAILY, ML 08/22/18 Escitalopram Oxalate* (Lexapro*) 10 Mg Tablet, 10 MG PO DAILY, #30 TAB 08/22/18 Docusate Sodium* (Colace*) 100 Mg Capsule, 100 MG PO BID, #60 CAP 08/22/18 Carvedilol* (Carvedilol*) 3.125 Mg Tablet, 3.125 MG PO BID, #60 TAB HOLD FOR SBP <110 OR DC <60. GIVE WITH FOOD. 08/22/18 Benazepril Hcl* (Benazepril Hcl*) 5 Mg Tablet, 5 MG PO DAILY, #60 TAB HOLD FOR SBP <110. 08/22/18 Anastrozole* (Arimidex*) 1 Mg Tablet, 1 MG PO DAILY, #30 TAB 08/22/18 Medications Current Medications Acetaminophen (Tylenol Tab) 650 mg Q4H PRN PO PAIN LEVEL 1-10/10 Last administered on 11/21/18at 00:06; Admin Dose 650 MG; Start 10/21/18 at 23:30 Anastrozole (Arimidex) 1 mg DAILY PO Last administered on 11/21/18at 08:44; Admin Dose 1 MG; Start 10/22/18 at 09:00 Carvedilol (Coreg) 3.125 mg BID PO Last administered on 11/21/18at 08:46; Admin Dose 3.125 MG; Start 10/22/18 at 09:00 Docusate Sodium (Colace) 100 mg BID PO Last administered on 11/21/18at 08:42; Admin Dose 100 MG; Start 10/22/18 at 09:00 Escitalopram Oxalate (Lexapro) 10 mg DAILY PO Last administered on 11/21/18at 08:43; Admin Dose 10 MG; Start 10/22/18 at 09:00 Loratadine (Claritin) 10 mg DAILY PO Last administered on 11/21/18 08:42; Admin Dose 10 MG; Start 10/22/18 at 09:00 Oxycodone HCl (Oxycontin) 20 mg Q12 PO Last administered on 11/21/18 08:43; Admin Dose 20 MG; Start 10/22/18 at 09:00 Pantoprazole (Protonix Tab) 40 mg AC BREAKFAST PO Last administered on 11/21/18 05:05; Admin Dose 40 MG; Start 10/22/18 at 07:25 Polyethylene Glycol (Miralax) 17 gm DAILY PO Last administered on 11/21/18 08:43; Admin Dose 17 GM; Start 10/22/18 at 09:00 Spironolactone (Aldactone) 50 mg DAILY PO Last administered on 11/21/18 08:42; Admin Dose 50 MG; Start 10/22/18 at 09:00 Zolpidem Tartrate (Ambien) 10 mg HS PRN PO INSOMNIA Last administered on 11/11/18 23:03; Admin Dose 5 MG; Start 10/21/18 at 23:30 Morphine Sulfate (morphine) 2 mg Q4H PRN IV SEVERE PAIN LEVEL 7-10 Last administered on 11/20/18 11:28; Admin Dose 2 MG; Start 10/22/18 at 01:30 Phenol (Cepastat Lozenge) 1 lozenge Q1H PRN MT sore throat Last administered on 10/31/18 18:34; Admin Dose 1 LOZENGE; Start 10/27/18 at 21:30 Fluticasone Propionate (Flonase 0.05% Nasal) 1 spray BID NASAL Last administered on 11/13/18 21:27; Admin Dose 1 SPRAY; Start 10/29/18 at 21:00 Budesonide (Pulmicort (Neb)) 0.5 mg BID RESP THERAPY HHN Last administered on 11/20/18 21:35; Admin Dose 0.5 MG; Start 10/30/18 at 09:00 Metolazone (Zaroxolyn) 2.5 mg BID@2730,1730 PO Last administered on 11/21/18 17:46; Admin Dose 2.5 MG; Start 11/01/18 at 05:30 Enoxaparin Sodium (Lovenox) 40 mg DAILY SC Last administered on 11/21/18 08:45; Admin Dose 40 MG; Start 11/02/18 at 09:00 Ibuprofen (Motrin) 400 mg Q6H PRN PO MILD PAIN(1-3) OR TEMP>38C; Start 11/07/18 at 12:20 Albuterol/ Ipratropium (Duoneb) 3 ml Q8H RESP THERAPY PRN HHN SHORTNESS OF BREATH Last administered on 11/20/18 14:51; Admin Dose 3 ML; Start 11/10/18 at 20:00 Potassium Chloride (Klor-Con 20) 20 meq BID PO Last administered on 11/21/18 08:43; Admin Dose 20 MEQ; Start 11/11/18 at 09:00 Ondansetron HCl (Zofran Inj) 4 mg Q6H PRN IV NAUSEA AND/OR VOMITING Last administered on 11/19/18 20:21; Admin Dose 4 MG; Start 11/19/18 at 20:30 Bumetanide (Bumex) 0.5 mg DAILY PO Last administered on 11/21/18 08:43; Admin Dose 0.5 MG; Start 11/20/18 at 09:00 Diphenhydramine HCl (Benadryl) 25 mg Q8H PRN PO ITCHING Last administered on 11/21/18 12:49; Admin Dose 25 MG; Start 11/20/18 at 14:00 Bisacodyl (Dulcolax Supp) 10 mg Q8H PRN DC CONSTIPATION; Start 11/20/18 at 17:30 Guaifenesin/ Codeine Phosphate (Robitussin Ac Liquid Cup) 10 ml Q4H PRN PO COUGH; Start 11/20/18 at 17:30 Magnesium Hydroxide (Milk Of Mag) 30 ml DAILY PRN PO CONSTIPATION Last administered on 11/20/18 18:44; Admin Dose 30 ML; Start 11/20/18 at 17:30 Simethicone (Mylicon) 80 mg Q8H PRN PO INDIGESTION; Start 11/20/18 at 23:30 Miscellaneous Information (*Order Clarification Bulletin) MEDICATION REQUIRES CLARIFICATI... Q8H XX ; Start 11/21/18 at 08:00 Miscellaneous Information (*Order Clarification Bulletin) MEDICATION REQUIRES CLARIFICATI... Q8H XX ; Start 11/21/18 at 10:00 Allergies: Coded Allergies: No Known Drug Allergies (Verified Allergy, Unknown, 10/21/18) Past Surgical History Past Surgical Hx: no surgical history Social History Alcohol Use: none Smoking Status: Never smoker Drug Use: none Exam/Review of Systems Exam Vitals Vital Signs Date Temp Pulse Resp B/P (MAP) Pulse Ox O2 O2 Flow FiO2 Time Delivery Rate 11/21/18 98.6 84 19 104/60 96 14:38 (75) 11/21/18 Room Air 07:23 11/21/18 2.0 06:36 11/20/18 21 21:35 Intake and Output 11/20/18 11/20/18 11/21/18 1515:00 23:00 07:00 IntakeIntake Total 200 ml 520 ml 150 ml BalanceBalance 200 ml 520 ml 150 ml Constitutional: alert, oriented Respiratory: clear to auscultation Gastrointestinal: soft, nl liver, spleen, non-tender Results Result Diagram: 11/17/18 0456 11/21/18 0502 Results 24hrs Laboratory Tests Test 11/21/18 05:02 11/21/18 11:26 Sodium Level 136 Potassium Level 3.7 Chloride Level 92 L Carbon Dioxide Level 38 H Anion Gap 6 Blood Urea Nitrogen 44 H Creatinine 0.94 Est Glomerular Filtrat Rate mL/min > 60 Glucose Level 115 Calcium Level 8.7 Ionized Calcium (Measured) 1.1 Phosphorus Level 5.3 H Magnesium Level 2.1 Parathyroid Hormone 18.1 L Lab Scanned Report REFERENCE LAB Medications Medication Current Medications Acetaminophen (Tylenol Tab) 650 mg Q4H PRN PO PAIN LEVEL 1-10/10 Last administered on 11/21/18at 00:06; Admin Dose 650 MG; Start 10/21/18 at 23:30 Anastrozole (Arimidex) 1 mg DAILY PO Last administered on 11/21/18at 08:44; Admin Dose 1 MG; Start 10/22/18 at 09:00 Carvedilol (Coreg) 3.125 mg BID PO Last administered on 11/21/18at 08:46; Admin Dose 3.125 MG; Start 10/22/18 at 09:00 Docusate Sodium (Colace) 100 mg BID PO Last administered on 11/21/18 08:42; Admin Dose 100 MG; Start 10/22/18 at 09:00 Escitalopram Oxalate (Lexapro) 10 mg DAILY PO Last administered on 11/21/18 08:43; Admin Dose 10 MG; Start 10/22/18 at 09:00 Loratadine (Claritin) 10 mg DAILY PO Last administered on 11/21/18 08:42; Admin Dose 10 MG; Start 10/22/18 at 09:00 Oxycodone HCl (Oxycontin) 20 mg Q12 PO Last administered on 11/21/18 08:43; Admin Dose 20 MG; Start 10/22/18 at 09:00 Pantoprazole (Protonix Tab) 40 mg AC BREAKFAST PO Last administered on 11/21/18 05:05; Admin Dose 40 MG; Start 10/22/18 at 07:25 Polyethylene Glycol (Miralax) 17 gm DAILY PO Last administered on 11/21/18 08:43; Admin Dose 17 GM; Start 10/22/18 at 09:00 Spironolactone (Aldactone) 50 mg DAILY PO Last administered on 11/21/18 08:42; Admin Dose 50 MG; Start 10/22/18 at 09:00 Zolpidem Tartrate (Ambien) 10 mg HS PRN PO INSOMNIA Last administered on 23:03; Admin Dose 5 MG; Start 10/21/18 at 23:30 Morphine Sulfate (morphine) 2 mg Q4H PRN IV SEVERE PAIN LEVEL 7-10 Last administered on 11/20/18 11:28; Admin Dose 2 MG; Start 10/22/18 at 01:30 Phenol (Cepastat Lozenge) 1 lozenge Q1H PRN MT sore throat Last administered on 10/31/18 18:34; Admin Dose 1 LOZENGE; Start 10/27/18 at 21:30 Fluticasone Propionate (Flonase 0.05% Nasal) 1 spray BID NASAL Last administered on 11/13/18 21:27; Admin Dose 1 SPRAY; Start 10/29/18 at 21:00 Budesonide (Pulmicort (Neb)) 0.5 mg BID RESP THERAPY HHN Last administered on 11/20/18 21:35; Admin Dose 0.5 MG; Start 10/30/18 at 09:00 Metolazone (Zaroxolyn) 2.5 mg BID@9730,3900 PO Last administered on 11/21/18 17:46; Admin Dose 2.5 MG; Start 11/01/18 at 05:30 Enoxaparin Sodium (Lovenox) 40 mg DAILY SC Last administered on 11/21/18 08:45; Admin Dose 40 MG; Start 11/02/18 at 09:00 Ibuprofen (Motrin) 400 mg Q6H PRN PO MILD PAIN(1-3) OR TEMP>38C; Start 11/07/18 at 12:20 Albuterol/ Ipratropium (Duoneb) 3 ml Q8H RESP THERAPY PRN HHN SHORTNESS OF BREATH Last administered on 11/20/18 14:51; Admin Dose 3 ML; Start 11/10/18 at 20:00 Potassium Chloride (Klor-Con 20) 20 meq BID PO Last administered on 11/21/18 08:43; Admin Dose 20 MEQ; Start 11/11/18 at 09:00 Ondansetron HCl (Zofran Inj) 4 mg Q6H PRN IV NAUSEA AND/OR VOMITING Last administered on 11/19/18 20:21; Admin Dose 4 MG; Start 11/19/18 at 20:30 Bumetanide (Bumex) 0.5 mg DAILY PO Last administered on 11/21/18 08:43; Admin Dose 0.5 MG; Start 11/20/18 at 09:00 Diphenhydramine HCl (Benadryl) 25 mg Q8H PRN PO ITCHING Last administered on 12:49; Admin Dose 25 MG; Start 11/20/18 at 14:00 Bisacodyl (Dulcolax Supp) 10 mg Q8H PRN DC CONSTIPATION; Start 11/20/18 at 17:30 Guaifenesin/ Codeine Phosphate (Robitussin Ac Liquid Cup) 10 ml Q4H PRN PO COUGH; Start 11/20/18 at 17:30 Magnesium Hydroxide (Milk Of Mag) 30 ml DAILY PRN PO CONSTIPATION Last administered on 11/20/18 18:44; Admin Dose 30 ML; Start 11/20/18 at 17:30 Simethicone (Mylicon) 80 mg Q8H PRN PO INDIGESTION; Start 11/20/18 at 23:30 Miscellaneous Information (*Order Clarification Bulletin) MEDICATION REQUIRES CLARIFICATI... Q8H XX ; Start 11/21/18 at 08:00 Miscellaneous Information (*Order Clarification Bulletin) MEDICATION REQUIRES CLARIFICATI... Q8H XX ; Start 11/21/18 at 10:00 ROSI RAMAN MD Nov 21, 2018 17:51
[2018-11-21 19:37] VITALS: BP 107/67; PULSE 90; RESP 18
[2018-11-22 01:46] VITALS: BP 125/71; PULSE 91; RESP 18
[2018-11-22] MEDS: DIPHENHYDRAMINE 25 MG CAP PO PRN ×3 (01:56→23:11)
[2018-11-22] MEDS: morphine 2 MG INJ IV PRN (01:57)
[2018-11-22] MEDS: IBUPROFEN 400 MG TAB PO PRN (03:05)
[2018-11-22] MEDS: PANTOPRAZOLE (EC) 40 MG TAB PO SCH (05:42)
[2018-11-22] MEDS: METOLAZONE 2.5 MG TAB PO SCH ×2 (05:42→19:08)
[2018-11-22 07:46] VITALS: BP 108/58; PULSE 84; RESP 18
[2018-11-22] MEDS: BUDESONIDE (NEB) 0.5MG/2ML AMP HHN SCH (08:21)
[2018-11-22] MEDS: ESCITALOPRAM 10 MG TAB PO SCH (08:42)
[2018-11-22] MEDS: SPIRONOLACTONE 50 MG TAB PO SCH (08:42)
[2018-11-22] MEDS: BUMETANIDE 0.5 MG TAB PO SCH (08:43)
[2018-11-22] MEDS: POTASSIUM CHLORIDE (SR) 20 MEQ TAB PO SCH ×2 (08:43→22:15)
[2018-11-22] MEDS: DOCUSATE SODIUM 100 MG CAP PO SCH ×2 (08:43→22:14)
[2018-11-22] MEDS: LORATADINE 10 MG TAB PO SCH (08:43)
[2018-11-22] MEDS: ANASTROZOLE 1 MG TAB PO SCH (08:44)
[2018-11-22] MEDS: POLYETHYLENE GLYCOL 17 GM PACKET PO SCH (08:45)
[2018-11-22] MEDS: oxyCODONE (CR) 20 MG TAB [oxyCONTIN] PO SCH ×2 (08:45→22:14)
[2018-11-22] MEDS: ENOXAPARIN 40 MG/0.4 ML SYG SC SCH (08:45)
[2018-11-22] MEDS: FLUTICASONE 0.05% 16 GM NAS SPRAY NASAL SCH (09:00)
--- NOTE | 2018-11-22 09:58 | PN ---
DATE: 11/22/2018 SUBJECTIVE: The patient is stable. No events overnight. OBJECTIVE: VITAL SIGNS: Blood pressure is 108/58, respiration 18, pulse 84, temperature 99.2. HEENT: Head is normocephalic. NECK: Supple. HEART: Regular rate. LUNGS: Show diminished breath sounds at the base. ABDOMEN: Soft, nontender to palpation without rebound or guarding. EXTREMITIES: Negative for clubbing, cyanosis, no edema. DERMATOLOGIC: No rashes. MUSCULOSKELETAL: No joint effusion. NEUROLOGIC: No change in exam. MEDICATIONS: Have been reviewed. LABORATORY DATA: Has been reviewed. ASSESSMENT AND PLAN: 1. Volume overload, improving. Etiology is multifactorial secondary to diastolic heart failure, que stionable portal hypertension. The patient is near euvolemic status. Continue current diuretic silvana men. 2. Hypokalemia, improved. Continue to monitor and replete as needed. 3. Metabolic alkalemia, improved after adjusting diuretics and correcting hypokalemia. Continue to monitor. 4. Nonoliguric acute kidney injury. Etiology is secondary to hemodynamics. Renal function is stabl e, continue to monitor. 5. Mineral bone disorder, monitor calcium and phosphorus levels. 6. Hip fracture, status post arthroplasty. Continue to monitor. 7. History of breast cancer with metastasis. 8. Left radial and ulnar fracture. Continue to monitor. 9. Chronic pain syndrome. 10. Status post bronchitis. Dictated By: ANDRÉS YO/NTS Conf#: [id number] DID#: [id number] CC: RUSS JEROME MD;*EndCC*
--- NOTE | 2018-11-22 13:35 | CONS ---
Consult Date/Type/Reason Admit Date/Time October 21, 2018 at 17:39 Initial Consult Date 10/21/18 Type of Consult Pulmonary Requesting Provider: RUSS JEROME MD Date/Time of Note DATE: 11/22/18 TIME: 13:35 Subjective +Patient stable this morning. Morning to ambulate currently less short of breath. Objective Vital Signs Date Temp Pulse Resp B/P (MAP) Pulse Ox O2 O2 Flow FiO2 Time Delivery Rate 11/22/18 99.2 84 18 108/58 90 07:46 (75) 11/21/18 Room Air 07:23 11/21/18 2.0 06:36 11/20/18 21 21:35 Intake and Output 11/21/18 11/21/18 11/22/18 1515:00 23:00 07:00 IntakeIntake Total 360 ml 360 ml BalanceBalance 360 ml 360 ml Exam PHYSICAL EXAMINATION: GENERAL: Well-nourished, well-developed lady, comfortable at rest, no acute distress. VITAL SIGNS: NECK: Supple. No JVD or lymphadenopathy. CARDIAC: S1, S2. No added sounds or murmurs. CHEST: Diminished air entry bilaterally, but no rales or wheezes. ABDOMEN: Soft, nontender. No guarding or rebound. EXTREMITIES: No cyanosis, clubbing, edema. NEUROLOGIC: Generalized weakness. Vent Setting Fraction of Inspired Oxygen pe: 21 Results/Medications Result Diagram: 11/22/18 0430 Results 24 hrs Laboratory Tests Test 11/22/18 04:30 Sodium Level 138 Potassium Level 3.8 Chloride Level 94 L Carbon Dioxide Level 38 H Anion Gap 6 Blood Urea Nitrogen 40 H Creatinine 0.78 Est Glomerular Filtrat Rate mL/min > 60 Glucose Level 113 Calcium Level 8.9 Phosphorus Level 4.7 Magnesium Level 2.1 Medications Current Medications Acetaminophen (Tylenol Tab) 650 mg Q4H PRN PO PAIN LEVEL 1-10/10 Last administered on 11/21/18at 00:06; Admin Dose 650 MG; Start 10/21/18 at 23:30 Anastrozole (Arimidex) 1 mg DAILY PO Last administered on 11/22/18at 08:44; Admin Dose 1 MG; Start 10/22/18 at 09:00 Carvedilol (Coreg) 3.125 mg BID PO Last administered on 11/22/18at 08:43; Admin Dose 3.125 MG; Start 10/22/18 at 09:00 Docusate Sodium (Colace) 100 mg BID PO Last administered on 11/22/18 08:43; Adm in Dose 100 MG; Start 10/22/18 at 09:00 Escitalopram Oxalate (Lexapro) 10 mg DAILY PO Last administered on 11/22/18 08:42; Admin Dose 10 MG; Start 10/22/18 at 09:00 Loratadine (Claritin) 10 mg DAILY PO Last administered on 11/22/18 08:43; Admin Dose 10 MG; Start 10/22/18 at 09:00 Oxycodone HCl (Oxycontin) 20 mg Q12 PO Last administered on 11/22/18 08:45; Admin Dose 20 MG; Start 10/22/18 at 09:00 Pantoprazole (Protonix Tab) 40 mg AC BREAKFAST PO Last administered on 11/22/18 05:42; Admin Dose 40 MG; Start 10/22/18 at 07:25 Polyethylene Glycol (Miralax) 17 gm DAILY PO Last administered on 11/22/18 08:45; Admin Dose 17 GM; Start 10/22/18 at 09:00 Spironolactone (Aldactone) 50 mg DAILY PO Last administered on 11/22/18 08:42; Admin Dose 50 MG; Start 10/22/18 at 09:00 Zolpidem Tartrate (Ambien) 10 mg HS PRN PO INSOMNIA Last administered on 11/11/18 23:03; Admin Dose 5 MG; Start 10/21/18 at 23:30 Morphine Sulfate (morphine) 2 mg Q4H PRN IV SEVERE PAIN LEVEL 7-10 Last administered on 11/22/18 01:57; Admin Dose 2 MG; Start 10/22/18 at 01:30 Phenol (Cepastat Lozenge) 1 lozenge Q1H PRN MT sore throat Last administered on 10/31/18 18:34; Admin Dose 1 LOZENGE; Start 10/27/18 at 21:30 Fluticasone Propionate (Flonase 0.05% Nasal) 1 spray BID NASAL Last administered on 11/13/18 21:27; Admin Dose 1 SPRAY; Start 10/29/18 at 21:00 Budesonide (Pulmicort (Neb)) 0.5 mg BID RESP THERAPY HHN Last administered on 11/20/18 21:35; Admin Dose 0.5 MG; Start 10/30/18 at 09:00 Metolazone (Zaroxolyn) 2.5 mg BID@0530,1730 PO Last administered on 11/22/18 05:42; Admin Dose 2.5 MG; Start 11/01/18 at 05:30 Enoxaparin Sodium (Lovenox) 40 mg DAILY SC Last administered on 11/22/18 08:45; Admin Dose 40 MG; Start 11/02/18 at 09:00 Ibuprofen (Motrin) 400 mg Q6H PRN PO MILD PAIN(1-3) OR TEMP>38C Last a dministered on 11/22/18 03:05; Admin Dose 400 MG; Start 11/07/18 at 12:20 Albuterol/ Ipratropium (Duoneb) 3 ml Q8H RESP THERAPY PRN HHN SHORTNESS OF BREATH Last administered on 11/20/18 14:51; Admin Dose 3 ML; Start 11/10/18 at 20:00 Potassium Chloride (Klor-Con 20) 20 meq BID PO Last administered on 11/22/18 08:43; Admin Dose 20 MEQ; Start 11/11/18 at 09:00 Ondansetron HCl (Zofran Inj) 4 mg Q6H PRN IV NAUSEA AND/OR VOMITING Last administered on 11/19/18 20:21; Admin Dose 4 MG; Start 11/19/18 at 20:30 Bumetanide (Bumex) 0.5 mg DAILY PO Last administered on 11/22/18 08:43; Admin Dose 0.5 MG; Start 11/20/18 at 09:00 Diphenhydramine HCl (Benadryl) 25 mg Q8H PRN PO ITCHING Last administered on 11/22/18 01:56; Admin Dose 25 MG; Start 11/20/18 at 14:00 Bisacodyl (Dulcolax Supp) 10 mg Q8H PRN [place] CONSTIPATION; Start 11/20/18 at 17:30 Guaifenesin/ Codeine Phosphate (Robitussin Ac Liquid Cup) 10 ml Q4H PRN PO COUGH; Start 11/20/18 at 17:30 Magnesium Hydroxide (Milk Of Mag) 30 ml DAILY PRN PO CONSTIPATION Last administered on 11/20/18at 18:44; Admin Dose 30 ML; Start 11/20/18 at 17:30 Simethicone (Mylicon) 80 mg Q8H PRN PO INDIGESTION; Start 11/20/18 at 23:30 Miscellaneous Information (*Order Clarification Bulletin) MEDICATION REQUIRES CLARIFICATI... Q8H XX ; Start 11/21/18 at 08:00 Miscellaneous Information (*Order Clarification Bulletin) MEDICATION REQUIRES CLARIFICATI... Q8H XX ; Start 11/21/18 at 10:00 Assessment/Plan Hospital Course (Demo Recall) IMPRESSION AND PLAN: 1. Recurrent pleural effusion with negative cytology. 2. Metastatic breast cancer. 3. History of congestive cardiac failure with volume overload. The patient should continue with: 1. Supplemental O2 as needed. 2. Hematology/oncology recommendations. 3. Correction of electrolyte imbalance. 4. Diuretics per primary team. 5. Consider placement of a PleurX catheter if pleural effusion continues to rereaccumulate as she has had multiple thoracenteses. Discharge planning okay from pulmonary standpoint LIDYA ALLEN MD, [facility] Nov 22, 2018 13:35
[2018-11-22 14:41] VITALS: BP 121/88; PULSE 89; RESP 18
--- NOTE | 2018-11-22 15:23 | CONS ---
Assessment/Plan Assessment/Plan Hospital Course (Demo Recall) IMPRESSION: 1. Congestive heart failure exacerbation would be diastolic, acute on chronic by most recent echo.-now s/p echo this admit with EF 60/small effusion 2. Abnormal electrocardiogram with low voltage, rule out pericardial effusion. 3. Hypertension-currently borderline hypotension 4. Metastatic breast carcinoma. 5. History of pathologic fractures of the leg, status post open reduction and internal fixation. 6. Anemia. 7. Increased BNP consistent with patient's congestive heart failure. 8. Pericardial effusion-small by echo 9. Edema-LE venous UTZneg for DVT 10. Hypokalemia-on aldactone nd daily repletion of K 11.Wrist ffracture acute by films 11/20 Recc: -On med-surg -Continued on metolazone and aldactone and now PO bumex at lower dose with overall significantly improved volume status and resolution of much of LLE edema but still ongoing assymetric LE edema in leg with fractures -renal and onc following and now endocrine for bone density -Continue current coreg as tolerated s/p d/c of ACEI -follow K clsoely -ortho evaluation ongoing for acute wrist fracture Consultation Date/Type/Reason Admit Date/Time October 21, 2018 at 17:39 Initial Consult Date 10/21/18 Type of Consult Cardiology Reason for Consultation CHF Requesting Provider: RUSS JEROME MD Date/Time of Note DATE: 11/22/18 TIME: 15:21 Exam/Review of Systems Vital Signs Vitals Vital Signs Date Temp Pulse Resp B/P (MAP) Pulse Ox O2 O2 Flow FiO2 Time Delivery Rate 11/22/18 98.3 89 18 121/88 97 14:41 (99) 11/21/18 Room Air 07:23 11/21/18 2.0 06:36 11/20/18 21 21:35 Intake and Output 11/21/18 11/21/18 11/22/18 1515:00 23:00 07:00 IntakeIntake Total 360 ml 360 ml BalanceBalance 360 ml 360 ml Exam Exam Review of Systems: CONSTITUTIONAL: No fevers, chills. PULMONARY: No sob CARDIOVASCULAR: No chest pain/palpitations GASTROINTESTINAL: No nausea/vomiting. GENITOURINARY: No hematuria/dysuria. MUSCULOSKELETAL: pain in leg PSYCHIATRIC: The patient denies depression. NEUROLOGIC: No weakness Constitutional: alert Psych: no complaints Head: normocephalic ENMT: mucosa pink and moist Neck: supple, jvd (9 cm water) Respiratory: clear to auscultation Cardiovascular: regular rate and rhythm Gastrointestinal: soft, non-tender Musculoskeletal: muscle weakness (generalized) Extremities: edema (R>>L) Labs Result Diagram: 11/22/18 0430 Results 24hrs Laboratory Tests Test 11/22/18 04:30 Sodium Level 138 Potassium Level 3.8 Chloride Level 94 L Carbon Dioxide Level 38 H Anion Gap 6 Blood Urea Nitrogen 40 H Creatinine 0.78 Est Glomerular Filtrat Rate mL/min > 60 Glucose Level 113 Calcium Level 8.9 Phosphorus Level 4.7 Magnesium Level 2.1 Medications Medications Current Medications Acetaminophen (Tylenol Tab) 650 mg Q4H PRN PO PAIN LEVEL 1-03/27 Last administered on 11/21/18 00:06; Admin Dose 650 MG; Start 10/21/18 at 23:30 Anastrozole (Arimidex) 1 mg DAILY PO Last administered on 11/22/18 08:44; Admin Dose 1 MG; Start 10/22/18 at 09:00 Carvedilol (Coreg) 3.125 mg BID PO Last administered on 11/22/18 08:43; Admin Dose 3.125 MG; Start 10/22/18 at 09:00 Docusate Sodium (Colace) 100 mg BID PO Last administered on 11/22/18 08:43; Admin Dose 100 MG; Start 10/22/18 at 09:00 Escitalopram Oxalate (Lexapro) 10 mg DAILY PO Last administered on 11/22/18 08:42; Admin Dose 10 MG; Start 10/22/18 at 09:00 Loratadine (Claritin) 10 mg DAILY PO Last administered on 11/22/18 08:43; Admin Dose 10 MG; Start 10/22/18 at 09:00 Oxycodone HCl (Oxycontin) 20 mg Q12 PO Last administered on 11/22/18 08:45; Adm in Dose 20 MG; Start 10/22/18 at 09:00 Pantoprazole (Protonix Tab) 40 mg AC BREAKFAST PO Last administered on 11/22/18 05:42; Admin Dose 40 MG; Start 10/22/18 at 07:25 Polyethylene Glycol (Miralax) 17 gm DAILY PO Last administered on 11/22/18 08:45; Admin Dose 17 GM; Start 10/22/18 at 09:00 Spironolactone (Aldactone) 50 mg DAILY PO Last administered on 11/22/18 08:42; Admin Dose 50 MG; Start 10/22/18 at 09:00 Zolpidem Tartrate (Ambien) 10 mg HS PRN PO INSOMNIA Last administered on 11/11/18 23:03; Admin Dose 5 MG; Start 10/21/18 at 23:30 Morphine Sulfate (morphine) 2 mg Q4H PRN IV SEVERE PAIN LEVEL 7-10 Last administered on 11/22/18 01:57; Admin Dose 2 MG; Start 10/22/18 at 01:30 Phenol (Cepastat Lozenge) 1 lozenge Q1H PRN MT sore throat Last administered on 10/31/18 18:34; Admin Dose 1 LOZENGE; Start 10/27/18 at 21:30 Fluticasone Propionate (Flonase 0.05% Nasal) 1 spray BID NASAL Last administered on 11/13/18 21:27; Admin Dose 1 SPRAY; Start 10/29/18 at 21:00 Budesonide (Pulmicort (Neb)) 0.5 mg BID RESP THERAPY HHN Last administered on 11/20/18 21:35; Admin Dose 0.5 MG; Start 10/30/18 at 09:00 Metolazone (Zaroxolyn) 2.5 mg BID@0530,1730 PO Last administered on 11/22/18 05:42; Admin Dose 2.5 MG; Start 11/01/18 at 05:30 Enoxaparin Sodium (Lovenox) 40 mg DAILY SC Last administered on 11/22/18 08:45; Admin Dose 40 MG; Start 11/02/18 at 09:00 Ibuprofen (Motrin) 400 mg Q6H PRN PO MILD PAIN(1-3) OR TEMP>38C Last administered on 11/22/18 03:05; Admin Dose 400 MG; Start 11/07/18 at 12:20 Albuterol/ Ipratropium (Duoneb) 3 ml Q8H RESP THERAPY PRN HHN SHORTNESS OF BREATH Last administered on 6/5/19at 14:51; Admin Dose 3 ML; Start 11/10/18 at 20:00 Potassium Chloride (Klor-Con 20) 20 meq BID PO Last administered on 11/22/18 08:43; Admin Dose 20 MEQ; Start 11/11/18 at 09:00 Ondansetron HCl (Zofran Inj) 4 mg Q6H PRN IV NAUSEA AND/OR VOMITING Last administered on 11/19/18at 20:21; Admin Dose 4 MG; Start 11/19/18 at 20:30 Bumetanide (Bumex) 0.5 mg DAILY PO Last administered on 11/22/18 08:43; Admin Dose 0.5 MG; Start 11/20/18 at 09:00 Diphenhydramine HCl (Benadryl) 25 mg Q8H PRN PO ITCHING Last administered on 11/22/18at 14:10; Admin Dose 25 MG; Start 11/20/18 at 14:00 Bisacodyl (Dulcolax Supp) 10 mg Q8H PRN [place] CONSTIPATION; Start 11/20/18 at 17:30 Guaifenesin/ Codeine Phosphate (Robitussin Ac Liquid Cup) 10 ml Q4H PRN PO COUGH; Start 11/20/18 at 17:30 Magnesium Hydroxide (Milk Of Mag) 30 ml DAILY PRN PO CONSTIPATION Last administered on 11/20/18at 18:44; Admin Dose 30 ML; Start 11/20/18 at 17:30 Simethicone (Mylicon) 80 mg Q8H PRN PO INDIGESTION; Start 11/20/18 at 23:30 Miscellaneous Information (*Order Clarification Bulletin) MEDICATION REQUIRES CLARIFICATI... Q8H XX ; Start 11/21/18 at 08:00 Miscellaneous Information (*Order Clarification Bulletin) MEDICATION REQUIRES CLARIFICATI... Q8H XX ; Start 11/21/18 at 10:00 KAMILA TERESA Nov 22, 2018 15:23
[2018-11-22 19:10] VITALS: BP 116/72; PULSE 85; RESP 18
--- NOTE | 2018-11-22 20:37 | PN ---
Date/Time of Note Date/Time of Note DATE: 11/22/18 TIME: 20:26 Assessment/Plan VTE Prophylaxis Risk score (from Nsg)>0 risk: 5 SCD applied (from Nsg): Yes SCD contraindicated: other (on) Pharmacological prophylaxis: LMWH Lines/Catheters IV Catheter Type (from Nrsg): Peripheral IV Central line still needed: Yes Urinary Cath still in place: No Assessment/Plan Hospital Course Rrecurrent thoracentesis from left pleural cavity.Bronchitis got treated slowly. CHF improved but not totally gone. Continue current chemotherapy bronchodilator therapy correction of fluid his electrolytes and follow the algorithm for a total synthesis planning. Assessment/Plan Recurrent thoracentesis from left pleural cavity.Bronchitis got treated slowly. CHF improved but not totally gone. Continue current chemotherapy br onchodilator therapy correction of fluid his electrolytes and follow the algorithm for a total synthesis planning. Assessment/Plan 1. PRIMARY ADENOCARCINOMA of the left breast. MULTIPLE BONY METS, PULMONARY METS;LIVER METS CHEMO ON HOLD; PT HAS A VERY GOOD RESPONSE TO CHEMO AND AI 2. Severe pain in the interscapular and lumbar sacral area most probably metastatic lesion possible femoral fracture. pathologic fracture of T9 with 60% of loss of height. Neurosurgical f/u. 3. Obesity. 4. Weight loss 60 pounds during the last 2 years by diet 5. PMS. 6. Myopia. 7. Anemia chronic disease with a drop of her hematocrit to 27; Latest results 28. Will recheck tomorrow;Leukopenia.Thrombocytopenia; 8. Anxiety disorder. Claustrophobia. Increase Ativan to 1 mg every 8 as needed at Lexapro 10 mg daily. 9. Posttraumatic stress disorder. 10. Pain in the left forearm with a history of fracture of ulna and radius. 11. Tachycardia-resolved 12. Hypoxemia at night marginal improved after 2 L of nasal cannula oxygen. 13. Deconditioning 14. 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 MRI: 09/28/18:diffuse osseous metastatic disease with multiple pathologic compression fractures at least involving the T4, T5, T7, T9 and T11 levels. There is likely mild cortical breakthrough at several levels resulting in mild central canal narrowing. No gross evidence of cord compression is seen.. 15. Pain syndrome. Today the most painful zone is in the right hip area. 16. Hyponatremia-corrected; today and hold Aldactone today. 17. Leucopenia-improved. 18. Neutropenia with occasional fever and chills. Last chemotherapy 5 days ago. 19. Hypoalbuminemia. 20.Right sided cp after catheter insertion and correction less discomfort. 21. Decreased edema both lower extremities with [id number] with Pleural and Pericardial effusion. 22. pain syndrome 23.bilateral pleural effusions ; s/p recurrent left thoracentesis Reaccumulation of the pleural fluid. 24. Systolic over diastolic congestive heart failure with a right more than left lower extremity swelling with no DVT in latest venous Doppler. 25. Swelling of the left forearm-persist. Cellulitis of the left forearm with decreased edema anteriorly.-Today it is less edematous 26. Pathologic fracture of the right hip;s/p hemiarthroplasty of right hip . 27. Dizziness 28. Chills. 29. Memory impairment. 30. Upper respiratory infection pharyngitis with dry cough. 31. Decreased voice with wheezing. 32. Headaches 33. Hypokalemia- reoccured. Result Diagram: 11/22/18 0430 Results 24hrs Laboratory Tests Test 11/22/18 04:30 Sodium Level 138 Potassium Level 3.8 Chloride Level 94 L Carbon Dioxide Level 38 H Anion Gap 6 Blood Urea Nitrogen 40 H Creatinine 0.78 Est Glomerular Filtrat Rate mL/min > 60 Glucose Level 113 Calcium Level 8.9 Phosphorus Level 4.7 Magnesium Level 2.1 Subjective 24 Hr Interval Summary Free Text/Dictation Left wrist area pain. Unable to use the left upper extremity. More swollen left upper extremity. Painful right hip worse while moving. Constitutional: improved, poor po; No no complaints, No chills, No diaphoresis, No disoriented, No febrile, No requiring IVF, No requiring O2, No other Eyes: No no complaints, No pain, No discharge, No redness, No visual change, No other ENT: congestion, sore throat; No no complaints, No bleeding, No pain, No discharge, No dysphagia, No other Respiratory: cough; No no complaints, No pain, No pleuritic pain, No shortness of breath, No sputum, No wheezing, No other Cardiovascular: chest pain, edema, lightheadedness, orthopenea, palpitations; No no complaints, No paroxysmal nocturnal dyspnea, No other Gastrointestinal: pain, constipation; No no complaints, No blood, No decreased appetite, No diarrhea, No flatus, No nausea, No passing stool, No vomiting, No other Genitourinary: dysuria; No no complaints, No bleeding, No discharge, No flank pain, No hematuria, No other Musculoskeletal: back pain, bone/joint pain; No no complaints, No neck pain, No restricted range of motion, No swelling, No other Skin: erythema; No no complaints, No bruising, No laceration, No pruritis, No rash, No skin lesions, No other Neurologic: confusion, dizziness; No no complaints, No focal-weakness, No headache, No syncope, No seizure, No other Endocrine: dry skin; No no complaints, No polyuria, No polydypsia, No temp intolerance, No other Lymphatic: No no complaints, No adenopathy, No tender nodes, No lymphadema, No other Psychological: anxiety, confusion; No no complaints, No nl mood/affect, No depression, No suicidal, No other Exam/Review of Systems Exam Vitals Vital Signs Date Temp Pulse Resp B/P (MAP) Pulse Ox O2 O2 Flow FiO2 Time Delivery Rate 11/22/18 98.3 85 18 116/72 94 19:10 (87) 11/21/18 Room Air 07:23 11/21/18 2.0 06:36 11/20/18 21 21:35 Intake and Output 11/21/18 11/21/18 11/22/18 1515:00 23:00 07:00 IntakeIntake Total 360 ml 360 ml BalanceBalance 360 ml 360 ml Constitutional: alert, oriented, well developed, distress, frail Psych: anxiety; No no complaints, No nl mood/affect, No confusion, No depression, No suicidal, No other Head: normocephalic, atraumatic; No lacerations, No hematomas, No other Eyes: EOMI, nl lids; No nl conjunctiva, No nl sclera, No PERRL, No icteric, No fundi, disc, No other ENMT: No nl external ears & nose, No nl lips & teeth, No nl nasal mucosa & septum, No mucosa pink and moist, No intubated, No tympanic membranes, No other Neck: supple, thyromegaly, nuchal rigidity; No non-tender, No jvd, No bruits, No masses, No other Respiratory: normal air movement, diminished breath sounds; No clear to auscultation, No congested cough, No crackles/rales, No intercostal retraction, No labored breathing, No respirations, No tactile fremitus, No wheezing, No other Cardiovascular: regular rate and rhythm, bruits, edema, jugular venous distention (JVD), systolic murmur Gastrointestinal: soft, bowel sounds, rebound or guarding; No nl liver, spleen, No non-tender, No ascites, No distended, No firm, No hepatomegaly, No mass, No splenomegaly, No surgical scars, No tender, No other Genitourinary - Female: nl adnexae, nl external genitalia; No CMT, No CVA tenderness, No uterus, No other Musculoskeletal: joint tenderness; No nl extremities to inspection, No nl gait and stance, No muscle tone, No muscle weakness, No range of motion, No spine non-tender, No swelling, No other Extremities: normal pulses, edema; No calf tenderness, No cyanosis, No clubbing, No pitting pedal edema, No palpable cord, No tenderness, No other Neurological: B[employer] 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 Results Results 24hrs Laboratory Tests Test 11/22/18 04:30 Sodium Level 138 Potassium Level 3.8 Chloride Level 94 L Carbon Dioxide Level 38 H Anion Gap 6 Blood Urea Nitrogen 40 H Creatinine 0.78 Est Glomerular Filtrat Rate mL/min > 60 Glucose Level 113 Calcium Level 8.9 Phosphorus Level 4.7 Magnesium Level 2.1 Medications Medication Current Medications Acetaminophen (Tylenol Tab) 650 mg Q4H PRN PO PAIN LEVEL 1-10/10 Last administered on 11/21/18 00:06; Admin Dose 650 MG; Start 10/21/18 at 23:30 Anastrozole (Arimidex) 1 mg DAILY PO Last administered on 11/22/18 08:44; Admin Dose 1 MG; Start 10/22/18 at 09:00 Carvedilol (Coreg) 3.125 mg BID PO Last administered on 11/22/18 08:43; Admin Dose 3.125 MG; Start 10/22/18 at 09:00 Docusate Sodium (Colace) 100 mg BID PO Last administered on 11/22/18 08:43; Admin Dose 100 MG; Start 10/22/18 at 09:00 Escitalopram Oxalate (Lexapro) 10 mg DAILY PO Last administered on 11/22/18 08:42; Admin Dose 10 MG; Start 10/22/18 at 09:00 Loratadine (Claritin) 10 mg DAILY PO Last administered on 11/22/18 08:43; Admin Dose 10 MG; Start 10/22/18 at 09:00 Oxycodone HCl (Oxycontin) 20 mg Q12 PO Last administered on 11/22/18 08:45; Admin Dose 20 MG; Start 10/22/18 at 09:00 Pantoprazole (Protonix Tab) 40 mg AC BREAKFAST PO Last administered on 11/22/18 05:42; Admin Dose 40 MG; Start 10/22/18 at 07:25 Polyethylene Glycol (Miralax) 17 gm DAILY PO Last administered on 11/22/18 08:45; Admin Dose 17 GM; Start 10/22/18 at 09:00 Spironolactone (Aldactone) 50 mg DAILY PO Last administered on 11/22/18 08:42; Admin Dose 50 MG; Start 10/22/18 at 09:00 Zolpidem Tartrate (Ambien) 10 mg HS PRN PO INSOMNIA Last administered on 23:03; Admin Dose 5 MG; Start 10/21/18 at 23:30 Morphine Sulfate (morphine) 2 mg Q4H PRN IV SEVERE PAIN LEVEL 7-10 Last administered on 11/22/18 01:57; Admin Dose 2 MG; Start 10/22/18 at 01:30 Phenol (Cepastat Lozenge) 1 lozenge Q1H PRN MT sore throat Last administered on 10/31/18 18:34; Admin Dose 1 LOZENGE; Start 10/27/18 at 21:30 Fluticasone Propionate (Flonase 0.05% Nasal) 1 spray BID NASAL Last administered on 11/13/18 21:27; Admin Dose 1 SPRAY; Start 10/29/18 at 21:00 Budesonide (Pulmicort (Neb)) 0.5 mg BID RESP THERAPY HHN Last administered on 11/20/18 21:35; Admin Dose 0.5 MG; Start 10/30/18 at 09:00 Metolazone (Zaroxolyn) 2.5 mg BID@7532,8110 PO Last administered on 11/22/18 19:08; Admin Dose 2.5 MG; Start 11/01/18 at 05:30 Enoxaparin Sodium (Lovenox) 40 mg DAILY SC Last administered on 11/22/18 08:45; Admin Dose 40 MG; Start 11/02/18 at 09:00 Ibuprofen (Motrin) 400 mg Q6H PRN PO MILD PAIN(1-3) OR TEMP>38C Last administered on 11/22/18 03:05; Admin Dose 400 MG; Start 11/07/18 at 12:20 Albuterol/ Ipratropium (Duoneb) 3 ml Q8H RESP THERAPY PRN HHN SHORTNESS OF BREATH Last administered on 11/20/18 14:51; Admin Dose 3 ML; Start 11/10/18 at 20:00 Potassium Chloride (Klor-Con 20) 20 meq BID PO Last administered on 11/22/18 08:43; Admin Dose 20 MEQ; Start 11/11/18 at 09:00 Ondansetron HCl (Zofran Inj) 4 mg Q6H PRN IV NAUSEA AND/OR VOMITING Last administered on 11/19/18 20:21; Admin Dose 4 MG; Start 11/19/18 at 20:30 Bumetanide (Bumex) 0.5 mg DAILY PO Last administered on 11/22/18 08:43; Admin Dose 0.5 MG; Start 11/20/18 at 09:00 Diphenhydramine HCl (Benadryl) 25 mg Q8H PRN PO ITCHING Last administered on 11/22/18 14:10; Admin Dose 25 MG; Start 11/20/18 at 14:00 Bisacodyl (Dulcolax Supp) 10 mg Q8H PRN [place] CONSTIPATION; Start 11/20/18 at 17:30 Guaifenesin/ Codeine Phosphate (Robitussin Ac Liquid Cup) 10 ml Q4H PRN PO COUGH; Start 11/20/18 at 17:30 Magnesium Hydroxide (Milk Of Mag) 30 ml DAILY PRN PO CONSTIPATION Last administered on 11/20/18 18:44; Admin Dose 30 ML; Start 11/20/18 at 17:30 Simethicone (Mylicon) 80 mg Q8H PRN PO INDIGESTION; Start 11/20/18 at 23:30 Miscellaneous Information (*Order Clarification Bulletin) MEDICATION REQUIRES CLARIFICATI... Q8H XX ; Start 11/21/18 at 08:00 Miscellaneous Information (*Order Clarification Bulletin) MEDICATION REQUIRES CLARIFICATI... Q8H XX ; Start 11/21/18 at 10:00 RUSS JEROME MD Nov 22, 2018 20:36
[2018-11-23 02:04] VITALS: BP 128/63; PULSE 83; RESP 18
[2018-11-23] MEDS: PANTOPRAZOLE (EC) 40 MG TAB PO SCH (06:23)
[2018-11-23] MEDS: METOLAZONE 2.5 MG TAB PO SCH ×2 (06:23→18:02)
[2018-11-23 07:53] VITALS: BP 113/59; PULSE 87; RESP 18
[2018-11-23] MEDS: BUMETANIDE 0.5 MG TAB PO SCH (08:58)
[2018-11-23] MEDS: POTASSIUM CHLORIDE (SR) 20 MEQ TAB PO SCH ×2 (08:58→21:24)
[2018-11-23] MEDS: SPIRONOLACTONE 50 MG TAB PO SCH (08:59)
[2018-11-23] MEDS: oxyCODONE (CR) 20 MG TAB [oxyCONTIN] PO SCH ×3 (09:00→21:00)
[2018-11-23] MEDS: ENOXAPARIN 40 MG/0.4 ML SYG SC SCH (09:02)
[2018-11-23] MEDS: ANASTROZOLE 1 MG TAB PO SCH (09:02)
[2018-11-23] MEDS: DOCUSATE SODIUM 100 MG CAP PO SCH (09:03)
[2018-11-23] MEDS: LORATADINE 10 MG TAB PO SCH (09:03)
--- NOTE | 2018-11-23 09:03 | PN ---
Date/Time of Note Date/Time of Note DATE: 11/23/18 TIME: 09:00 Assessment/Plan VTE Prophylaxis Risk score (from Ns)>0 risk: 14 SCD applied (from Ns): Yes SCD contraindicated: other (on) Pharmacological prophylaxis: LMWH Lines/Catheters IV Catheter Type (from Nrs): Peripheral IV Central line still needed: No Urinary Cath still in place: No Reason Cath still needed: urinary retention Assessment/Plan Hospital Course Rrecurrent thoracentesis from left pleural cavity.Bronchitis got treated slowly. CHF improved but not totally gone. Continue current chemotherapy bronchodilator therapy correction of fluid his electrolytes and follow the algorithm for a total synthesis planning. Assessment/Plan Rrecurrent thoracentesis from left pleural cavity.Bronchitis got treated slowly. CHF improved but not totally gone. Continue current chemotherapy bronchodilator therapy correction of fluid his electrolytes and follow the algorithm for a total synthesis planning. Assessment/Plan Recurrent thoracentesis from left pleural cavity.Bronchitis got treated s lowly. CHF improved but not totally gone. Continue current chemotherapy bronchodilator therapy correction of fluid his electrolytes and follow the algorithm for a total synthesis planning. Assessment/Plan 1. PRIMARY ADENOCARCINOMA of the left breast. MULTIPLE BONY METS, PULMONARY METS;LIVER METS CHEMO ON HOLD; PT HAS A VERY GOOD RESPONSE TO CHEMO AND AI 2. Severe pain in the interscapular and lumbar sacral area most probably metastatic lesion possible femoral fracture. pathologic fracture of T9 with 60% of loss of height. Neurosurgical f/u. 3. Obesity. 4. Weight loss 60 pounds during the last 2 years by diet 5. PMS. 6. Myopia. 7. Anemia chronic disease with a drop of her hematocrit to 27; Latest results 28. Will recheck tomorrow;Leukopenia.Thrombocytopenia; 8. Anxiety disorder. Claustrophobia. Increase Ativan to 1 mg every 8 as needed at Lexapro 10 mg daily. 9. Posttraumatic stress disorder. 10. Pain in the left forearm with a history of fracture of ulna and radius. 11. Tachycardia-resolved 12. Hypoxemia at night marginal improved after 2 L of nasal cannula oxygen. 13. Deconditioning 14. 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 MRI: 09/28/18:diffuse osseous metastatic disease with multiple pathologic compression fractures at least involving the T4, T5, T7, T9 and T11 levels. There is likely mild cortical breakthrough at several levels resulting in mild central canal narrowing. No gross evidence of cord compression is seen.. 15. Pain syndrome. Today the most painful zone is in the right hip area. 16. Hyponatremia-corrected; today and hold Aldactone today. 17. Leucopenia-improved. 18. Neutropenia with occasional fever and chills. Last chemotherapy 5 days ago. 19. Hypoalbuminemia. 20.Right sided cp after catheter insertion and correction less discomfort. 21. Decreased edema both lower extremities with [id number] with Pleural and Pericardial effusion. 22. pain syndrome 23.bilateral pleural effusions ; s/p recurrent left thoracentesis Reaccumulation of the pleural fluid. 24. Systolic over diastolic congestive heart failure with a right more than left lower extremity swelling with no DVT in latest venous Doppler. 25. Swelling of the left forearm-persist. Cellulitis of the left forearm with decreased edema anteriorly.-Today it is less edematous 26. Pathologic fracture of the right hip;s/p hemiarthroplasty of right hip . 27. Dizziness 28. Chills. 29. Memory impairment. 30. Upper respiratory infection pharyngitis with dry cough. 31. Decreased voice with wheezing. 32. Headaches 33. Hypokalemia- reoccured. Result Diagram: 11/23/185 11/23/18 0435 Results 24hrs Laboratory Tests Test 11/23/18 04:35 White Blood Count 4.0 L Red Blood Count 3.58 L Hemoglobin 11.8 L Hematocrit 36.0 L Mean Corpuscular Volume 100.6 Mean Corpuscular Hemoglobin 33.0 Mean Corpuscular Hemoglobin Concent 32.8 Red Cell Distribution Width 14.6 H Platelet Count 208 Mean Platelet Volume 9.7 Immature Granulocytes % 0.000 L Neutrophils % 38.0 L Lymphocytes % 42.9 Monocytes % 13.8 H Eosinophils % 4.3 Basophils % 1.0 Nucleated Red Blood Cells % 0.0 Immature Granulocytes # 0.000 Neutrophils # 1.5 L Lymphocytes # 1.7 Monocytes # 0.6 Eosinophils # 0.2 Basophils # 0.0 Nucleated Red Blood Cells # 0.0 Sodium Level 138 Potassium Level 4.0 Chloride Level 94 L Carbon Dioxide Level 36 H Anion Gap 8 Blood Urea Nitrogen 35 H Creatinine 0.81 Est Glomerular Filtrat Rate mL/min > 60 Glucose Level 126 Calcium Level 9.0 Total Bilirubin 0.5 Direct Bilirubin 0.00 Indirect Bilirubin 0.5 Aspartate Amino Transf (AST/SGOT) 40 Alanine Aminotransferase (ALT/SGPT) 38 Alkaline Phosphatase 83 Total Protein 6.6 Albumin 3.4 Globulin 3.20 Albumin/Globulin Ratio 1.06 Subjective 24 Hr Interval Summary Free Text/Dictation I am in pain. Constitutional: chills, disoriented, poor po Eyes: No no complaints, No pain, No discharge, No redness, No visual change, No other ENT: congestion, discharge; No no complaints, No bleeding, No pain, No dysphagia, No sore throat, No other Respiratory: cough, pleuritic pain, sputum; No no complaints, No pain, No shortness of breath, No wheezing, No other Cardiovascular: chest pain, lightheadedness, orthopenea, palpitations; No no complaints, No edema, No paroxysmal nocturnal dyspnea, No other Gastrointestinal: constipation, decreased appetite, diarrhea, nausea; No no complaints, No pain, No blood, No flatus, No passing stool, No vomiting, No other Genitourinary: dysuria; No no complaints, No bleeding, No discharge, No flank pain, No hematuria, No other Musculoskeletal: back pain, bone/joint pain; No no complaints, No neck pain, No restricted range of motion, No swelling, No other Skin: bruising, erythema; No no complaints, No laceration, No pruritis, No rash, No skin lesions, No other Neurologic: confusion, dizziness Endocrine: polyuria, polydypsia; No no complaints, No dry skin, No temp intolerance, No other Psychological: anxiety; No no complaints, No nl mood/affect, No confusion, No depression, No suicidal, No other Exam/Review of Systems Exam Vitals Vital Signs Date Temp Pulse Resp B/P (MAP) Pulse Ox O2 O2 Flow FiO2 Time Delivery Rate 11/23/18 98.9 87 18 113/59 92 07:53 (77) 11/21/18 Room Air 07:23 11/21/18 2.0 06:36 11/20/18 21 21:35 Intake and Output 11/22/18 11/22/18 11/23/18 1515:00 23:00 07:00 IntakeIntake Total 100 ml OutputOutput Total 300 ml BalanceBalance -200 ml Constitutional: alert, oriented, well developed, distress, frail; No non-verbal, No obese, No other Psych: anxiety; No no complaints, No nl mood/affect, No confusion, No depression, No suicidal, No other Head: normocephalic, atraumatic Eyes: EOMI, nl lids, PERRL; No nl conjunctiva, No nl sclera, No icteric, No fundi, disc, No other ENMT: No nl external ears & nose, No nl lips & teeth, No nl nasal mucosa & septum, No mucosa pink and moist, No intubated, No tympanic membranes, No other Neck: supple, jvd, bruits, thyromegaly, nuchal rigidity Respiratory: congested cough, crackles/rales, diminished breath sounds, wheezing; No clear to auscultation, No normal air movement, No intercostal retraction, No labored breathing, No respirations, No tactile fremitus, No other Cardiovascular: nl pulses, bruits, edema, jugular venous distention (JVD), rub, systolic murmur; No regular rate and rhythm, No diastolic murmur, No gallop, No irregular rhythm, No murmurs/extra sounds, No S3, No S4, No other Gastrointestinal: nl liver, spleen, ascites, bowel sounds, distended; No soft, No non-tender, No firm, No hepatomegaly, No mass, No rebound or guarding, No splenomegaly, No surgical scars, No tender, No other Genitourinary - Female: nl adnexae, nl external genitalia; No CMT, No CVA tenderness, No uterus, No other Musculoskeletal: nl extremities to inspection, joint tenderness; No nl gait and stance, No muscle tone, No muscle weakness, No range of mot ion, No spine non-tender, No swelling, No other Extremities: normal pulses, edema, palpable cord Neurological: [employer] 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; No nl mental status, No nl speech, No nl strength, No confused, No DTR's symmetric, No focal weakness, No lethargic, No numbness, No reflexes, No unresponsive, No other Results Results 24hrs Laboratory Tests Test 11/23/18 04:35 White Blood Count 4.0 L Red Blood Count 3.58 L Hemoglobin 11.8 L Hematocrit 36.0 L Mean Corpuscular Volume 100.6 Mean Corpuscular Hemoglobin 33.0 Mean Corpuscular Hemoglobin Concent 32.8 Red Cell Distribution Width 14.6 H Platelet Count 208 Mean Platelet Volume 9.7 Immature Granulocytes % 0.000 L Neutrophils % 38.0 L Lymphocytes % 42.9 Monocytes % 13.8 H Eosinophils % 4.3 Basophils % 1.0 Nucleated Red Blood Cells % 0.0 Immature Granulocytes # 0.000 Neutrophils # 1.5 L Lymphocytes # 1.7 Monocytes # 0.6 Eosinophils # 0.2 Basophils # 0.0 Nucleated Red Blood Cells # 0.0 Sodium Level 138 Potassium Level 4.0 Chloride Level 94 L Carbon Dioxide Level 36 H Anion Gap 8 Blood Urea Nitrogen 35 H Creatinine 0.81 Est Glomerular Filtrat Rate mL/min > 60 Glucose Level 126 Calcium Level 9.0 Total Bilirubin 0.5 Direct Bilirubin 0.00 Indirect Bilirubin 0.5 Aspartate Amino Transf (AST/SGOT) 40 Alanine Aminotransferase (ALT/SGPT) 38 Alkaline Phosphatase 83 Total Protein 6.6 Albumin 3.4 Globulin 3.20 Albumin/Globulin Ratio 1.06 Medications Medication Current Medications Anastrozole (Arimidex) 1 mg DAILY PO Last administered on 11/22/18 08:44; Admin Dose 1 MG; Start 10/22/18 at 09:00 Carvedilol (Coreg) 3.125 mg BID PO Last administered on 11/22/18 22:15; Admin Dose 3.125 MG; Start 10/22/18 at 09:00 Docusate Sodium (Colace) 100 mg BID PO Last administered on 11/22/18 22:14; Admin Dose 100 MG; Start 10/22/18 at 09:00 Escitalopram Oxalate (Lexapro) 10 mg DAILY PO Last administered on 11/22/18 08:42; Admin Dose 10 MG; Start 10/22/18 at 09:00 Loratadine (Claritin) 10 mg DAILY PO Last administered on 11/22/18 08:43; Admin Dose 10 MG; Start 10/22/18 at 09:00 Oxycodone HCl (Oxycontin) 20 mg Q12 PO Last administered on 11/22/18 22:14; Admin Dose 20 MG; Start 10/22/18 at 09:00 Polyethylene Glycol (Miralax) 17 gm DAILY PO Last administered on 11/22/18 08:45; Admin Dose 17 GM; Start 10/22/18 at 09:00 Spironolactone (Aldactone) 50 mg DAILY PO Last administered on 11/22/18 08:42; Admin Dose 50 MG; Start 10/22/18 at 09:00 Phenol (Cepastat Lozenge) 1 lozenge Q1H PRN MT sore throat Last administered on 10/31/18 18:34; Admin Dose 1 LOZENGE; Start 10/27/18 at 21:30 Budesonide (Pulmicort (Neb)) 0.5 mg BID RESP THERAPY HHN Last administered on 11/20/18 21:35; Admin Dose 0.5 MG; Start 10/30/18 at 09:00 Metolazone (Zaroxolyn) 2.5 mg BID@0530,1730 PO Last administered on 11/23/18 06:23; Admin Dose 2.5 MG; Start 11/01/18 at 05:30 Enoxaparin Sodium (Lovenox) 40 mg DAILY SC Last administered on 11/22/18 08:45; Admin Dose 40 MG; Start 11/02/18 at 09:00 Ibuprofen (Motrin) 400 mg Q6H PRN PO MILD PAIN(1-3) OR TEMP>38C Last administered on 11/22/18 03:05; Admin Dose 400 MG; Start 11/07/18 at 12:20 Potassium Chloride (Klor-Con 20) 20 meq BID PO Last administered on 11/22/18 22:15; Admin Dose 20 MEQ; Start 11/11/18 at 09:00 Ondansetron HCl (Zofran Inj) 4 mg Q6H PRN IV NAUSEA AND/OR VOMITING Last administered on 11/19/18 20:21; Admin Dose 4 MG; Start 11/19/18 at 20:30 Bumetanide (Bumex) 0.5 mg DAILY PO Last administered on 11/22/18 08:43; Admin Dose 0.5 MG; Start 11/20/18 at 09:00 Diphenhydramine HCl (Benadryl) 25 mg Q8H PRN PO ITCHING Last administered on 11/22/18 23:11; Admin Dose 25 MG; Start 11/20/18 at 14:00 Bisacodyl (Dulcolax Supp) 10 mg Q8H PRN CO CONSTIPATION; Start 11/20/18 at 17:30 Guaifenesin/ Codeine Phosphate (Robitussin Ac Liquid Cup) 10 ml Q4H PRN PO COUGH; Start 11/20/18 at 17:30 Magnesium Hydroxide (Milk Of Mag) 30 ml DAILY PRN PO CONSTIPATION Last administered on 11/20/18at 18:44; Admin Dose 30 ML; Start 11/20/18 at 17:30 Simethicone (Mylicon) 80 mg Q8H PRN PO INDIGESTION; Start 11/20/18 at 23:30 Miscellaneous Information (*Order Clarification Bulletin) MEDICATION REQUIRES CLARIFICATI... Q8H XX ; Start 11/21/18 at 08:00 Miscellaneous Information (*Order Clarification Bulletin) MEDICATION REQUIRES CLARIFICATI... Q8H XX ; Start 11/21/18 at 10:00 RUSS JEROME MD Nov 23, 2018 09:02
[2018-11-23] MEDS: POLYETHYLENE GLYCOL 17 GM PACKET PO SCH (09:04)
[2018-11-23] MEDS: ESCITALOPRAM 10 MG TAB PO SCH (09:04)
--- NOTE | 2018-11-23 09:09 | PN ---
DATE: 11/23/2018 SUBJECTIVE: The patient is stable, no events overnight. No fevers, chills, nausea, vomiting. OBJECTIVE: VITAL SIGNS: Blood pressure is 113/59, respiration 18, pulse 87, temperature 98.9. HEENT: Head is normocephalic. NECK: Supple. HEART: Regular rate. LUNGS: Show diminished breath sounds at the base. ABDOMEN: Soft, nontender to palpation without rebound or guarding. EXTREMITIES: Negative for clubbing, cyanosis. Trace edema. DERMATOLOGIC: No rashes. MUSCULOSKELETAL: No joint effusion. NEUROLOGIC: No change in exam. MEDICATIONS: The patient's medications have been reviewed. LABORATORY DATA: Has been reviewed. ASSESSMENT AND PLAN: 1. Volume overload, improving. Etiology is multifactorial secondary to diastolic heart failure, que stionable for hypertension. The patient is near euvolemic status. Continue current diuretic regimen . 2. Hypokalemia, improved. Continue to monitor and replete as needed. 3. Metabolic alkalemia, improved. Continue to monitor. 4. Nonoliguric acute kidney injury, etiology is secondary to hemodynamics. Renal function is stable , continue to monitor. 5. Mineral bone disorder. Monitor calcium and phosphorus levels. 6. Hip fracture, status post arthroplasty. 7. History of breast cancer with metastasis. 8. Left radial and ulnar fracture. Continue to monitor. 9. Chronic pain syndrome. 10. Status post bronchitis. Dictated By: ANDRÉS TATUM DO NR/NTS Conf#: [id number] DID#: [id number] CC: RUSS JEROME MD; ALMA CORDOVA MD;*EndCC*
[2018-11-23] MEDS: DIPHENHYDRAMINE 25 MG CAP PO PRN ×2 (13:21→21:24)
--- NOTE | 2018-11-23 14:58 | CONS ---
Assessment/Plan Assessment/Plan Hospital Course (Demo Recall) IMPRESSION: 1. Congestive heart failure exacerbation would be diastolic, acute on chronic by most recent echo.-now s/p echo this admit with EF 60/small effusion 2. Abnormal electrocardiogram with low voltage, rule out pericardial effusion. 3. Hypertension-currently borderline hypotension 4. Metastatic breast carcinoma. 5. History of pathologic fractures of the leg, status post open reduction and internal fixation. 6. Anemia. 7. Increased BNP consistent with patient's congestive heart failure. 8. Pericardial effusion-small by echo 9. Edema-LE venous UTZneg for DVT 10. Hypokalemia-on aldactone nd daily repletion of K 11.Wrist fracture acute by films 11/20 Recc: -On med-surg -Continued on metolazone and aldactone and now PO bumex at lower dose with overall significantly improved volume status and resolution of much of LLE edema but still ongoing assymetric LE edema in leg with fractures -renal and onc following and now endocrine for bone density -REsume baseline aldactone/coreg as reached ? end date by pharmacy -follow K clsoely -currently conservative management of wrist fracture Consultation Date/Type/Reason Admit Date/Time October 21, 2018 at 17:39 Initial Consult Date 10/21/18 Type of Consult Cardiology Reason for Consultation CHF Requesting Provider: RUSS JEROME MD Date/Time of Note DATE: 11/23/18 TIME: 14:52 Exam/Review of Systems Vital Signs Vitals Vital Signs Date Temp Pulse Resp B/P (MAP) Pulse Ox O2 O2 Flow FiO2 Time Delivery Rate 11/23/18 98.9 87 18 113/59 92 07:53 (77) 11/21/18 Room Air 07:23 11/21/18 2.0 06:36 11/20/18 21 21:35 Intake and Output 11/22/18 11/22/18 11/23/18 1515:00 23:00 07:00 IntakeIntake Total 100 ml OutputOutput Total 300 ml BalanceBalance -200 ml Exam Exam Review of Systems: CONSTITUTIONAL: No fevers, chills. PULMONARY: No sob CARDIOVASCULAR: No chest pain/palpitations GASTROINTESTINAL: No nausea/vomiting. GENITOURINARY: No hematuria/dysuria. MUSCULOSKELETAL: No myagias/arthalgias. PSYCHIATRIC: The patient denies depression. NEUROLOGIC: No weakness Constitutional: alert Psych: no complaints Head: normocephalic ENMT: mucosa pink and moist Neck: supple, jvd Respiratory: diminished breath sounds (9 cm water) Cardiovascular: regular rate and rhythm Musculoskeletal: muscle tone (normal) Extremities: other (n o nfocal deficits) Neurological: other (no focal deficits) Labs Result Diagram: 11/23/185 11/23/185 Results 24hrs Laboratory Tests Test 11/23/18 04:35 White Blood Count 4.0 L Red Blood Count 3.58 L Hemoglobin 11.8 L Hematocrit 36.0 L Mean Corpuscular Volume 100.6 Mean Corpuscular Hemoglobin 33.0 Mean Corpuscular Hemoglobin Concent 32.8 Red Cell Distribution Width 14.6 H Platelet Count 208 Mean Platelet Volume 9.7 Immature Granulocytes % 0.000 L Neutrophils % 38.0 L Lymphocytes % 42.9 Monocytes % 13.8 H Eosinophils % 4.3 Basophils % 1.0 Nucleated Red Blood Cells % 0.0 Immature Granulocytes # 0.000 Neutrophils # 1.5 L Lymphocytes # 1.7 Monocytes # 0.6 Eosinophils # 0.2 Basophils # 0.0 Nucleated Red Blood Cells # 0.0 Sodium Level 138 Potassium Level 4.0 Chloride Level 94 L Carbon Dioxide Level 36 H Anion Gap 8 Blood Urea Nitrogen 35 H Creatinine 0.81 Est Glomerular Filtrat Rate mL/min > 60 Glucose Level 126 Calcium Level 9.0 Total Bilirubin 0.5 Direct Bilirubin 0.00 Indirect Bilirubin 0.5 Aspartate Amino Transf (AST/SGOT) 40 Alanine Aminotransferase (ALT/SGPT) 38 Alkaline Phosphatase 83 Total Protein 6.6 Albumin 3.4 Globulin 3.20 Albumin/Globulin Ratio 1.06 Medications Medications Current Medications Phenol (Cepastat Lozenge) 1 lozenge Q1H PRN MT sore throat Last administered on 10/31/18at 18:34; Admin Dose 1 LOZENGE; Start 10/27/18 at 21:30 Budesonide (Pulmicort (Neb)) 0.5 mg BID RESP THERAPY HHN Last administered on 11/20/18at 21:35; Admin Dose 0.5 MG; Start 10/30/18 at 09:00 Metolazone (Zaroxolyn) 2.5 mg BID@0530,1730 PO Last administered on 11/23/18at 06:23; Admin Dose 2.5 MG; Start 11/01/18 at 05:30 Enoxaparin Sodium (Lovenox) 40 mg DAILY SC Last administered on 11/23/18 09:02; Admin Dose 40 MG; Start 11/02/18 at 09:00; Status Future Hold Ibuprofen (Motrin) 400 mg Q6H PRN PO MILD PAIN(1-3) OR TEMP>38C Last administered on 11/22/18 03:05; Admin Dose 400 MG; Start 11/07/18 at 12:20 Potassium Chloride (Klor-Con 20) 20 meq BID PO Last administered on 11/23/18 08:58; Admin Dose 20 MEQ; Start 11/11/18 at 09:00 Ondansetron HCl (Zofran Inj) 4 mg Q6H PRN IV NAUSEA AND/OR VOMITING Last administered on 11/19/18 20:21; Admin Dose 4 MG; Start 11/19/18 at 20:30 Bumetanide (Bumex) 0.5 mg DAILY PO Last administered on 11/23/18 08:58; Admin Dose 0.5 MG; Start 11/20/18 at 09:00 Diphenhydramine HCl (Benadryl) 25 mg Q8H PRN PO ITCHING Last administered on 11/23/18 13:21; Admin Dose 25 MG; Start 11/20/18 at 14:00 Bisacodyl (Dulcolax Supp) 10 mg Q8H PRN SC CONSTIPATION; Start 11/20/18 at 17:30 Guaifenesin/ Codeine Phosphate (Robitussin Ac Liquid Cup) 10 ml Q4H PRN PO COUGH; Start 11/20/18 at 17:30 Magnesium Hydroxide (Milk Of Mag) 30 ml DAILY PRN PO CONSTIPATION Last administered on 11/20/18 18:44; Admin Dose 30 ML; Start 11/20/18 at 17:30 Simethicone (Mylicon) 80 mg Q8H PRN PO INDIGESTION; Start 11/20/18 at 23:30 Miscellaneous Information (*Order Clarification Bulletin) MEDICATION REQUIRES CLARIFICATI... Q8H XX ; Start 11/21/18 at 08:00 Miscellaneous Information (*Order Clarification Bulletin) MEDICATION REQUIRES CLARIFICATI... Q8H XX ; Start 11/21/18 at 10:00 KAMILA TERESA Nov 23, 2018 14:58
[2018-11-23 15:03] VITALS: BP 91/55; PULSE 88; RESP 18
[2018-11-23 18:02] VITALS: BP 130/70; PULSE 89
[2018-11-23 20:00] VITALS: BP 103/62; PULSE 92; RESP 18
[2018-11-23] MEDS: BUDESONIDE (NEB) 0.5MG/2ML AMP HHN SCH (20:06)
[2018-11-23] MEDS: IBUPROFEN 400 MG TAB PO PRN (21:24)
[2018-11-24] VITALS (7 sets, daily range): BP systolic 100–133; BP diastolic 57–81; PULSE 78–92; RESP 16–18
[2018-11-24] MEDS: morphine 2 MG INJ IV PRN ×2 (00:29→05:31)
[2018-11-24] MEDS: METOLAZONE 2.5 MG TAB PO SCH ×2 (05:31→17:30)
[2018-11-24] MEDS: oxyCODONE (CR) 20 MG TAB [oxyCONTIN] PO SCH ×2 (08:44→21:50)
[2018-11-24] MEDS: BUMETANIDE 0.5 MG TAB PO SCH (08:44)
[2018-11-24] MEDS: POTASSIUM CHLORIDE (SR) 20 MEQ TAB PO SCH ×2 (08:44→21:49)
[2018-11-24] MEDS: MAGNESIUM HYDROXIDE 30ML CUP PO PRN (08:45)
--- NOTE | 2018-11-24 08:47 | PN ---
DATE: 11/24/2018 SUBJECTIVE: The patient is stable, no events overnight. OBJECTIVE: VITAL SIGNS: Blood pressure is 130/70, pulse 82, respiration 83, temperature 97.9. HEENT: Head is normocephalic. NECK: Supple. HEART: Regular rate. LUNGS: Show diminished breath sounds at the base. ABDOMEN: Soft, nontender to palpation without rebound or guarding. EXTREMITIES: Negative for clubbing, cyanosis, no edema. DERMATOLOGIC: No rashes. MUSCULOSKELETAL: No joint effusion. NEUROLOGIC: No change in exam. MEDICATIONS: The patient's medications have been reviewed. LABORATORY DATA: Has been reviewed. ASSESSMENT AND PLAN: 1. Volume overload, improving. Etiology is likely multifactorial secondary to diastolic heart failu re, questionable portal hypertension. The patient appears euvolemic or near euvolemic on exam. Cont inue current diuretic regimen. 2. Hypokalemia. Continue to monitor. Continue potassium supplementation. 3. Metabolic alkalemia, improving. Continue to monitor. 4. Nonoliguric acute kidney injury, etiology is secondary to hemodynamics. Renal function is stable , continue to monitor. 5. Mineral bone disorder, monitor calcium and phosphorus levels. 6. Hip fracture, status post arthroplasty. 7. History of breast cancer with metastasis. 8. Left radial and ulnar fractures. Continue to monitor. 9. Chronic pain syndrome. 10. Status post bronchitis. Dictated By: ANDRÉS TATUM DO NR/NTS Conf#: [id number] DID#: [id number] CC: RUSS JEROME MD; ALMA CORDOVA MD;*EndCC*
[2018-11-24] MEDS: DIPHENHYDRAMINE 25 MG CAP PO PRN (08:55)
[2018-11-24] MEDS: IBUPROFEN 400 MG TAB PO PRN (08:55)
[2018-11-24] MEDS: BUDESONIDE (NEB) 0.5MG/2ML AMP HHN SCH ×2 (09:43→20:00)
--- NOTE | 2018-11-24 11:25 | PN ---
Date/Time of Note Date/Time of Note DATE: 11/24/18 TIME: 11:22 Assessment/Plan VTE Prophylaxis Risk score (from Ns)>0 risk: 17 SCD applied (from Ns): Yes SCD contraindicated: other (on.) Pharmacological prophylaxis: LMWH Pharm contraindication: patient refusal Lines/Catheters IV Catheter Type (from [facility]): Peripheral IV (port-a-cath) Central line still needed: No Urinary Cath still in place: No Reason Cath still needed: urinary retention Assessment/Plan Hospital Course Rrecurrent thoracentesis from left pleural cavity.Bronchitis got treated slowly. CHF improved but not totally gone. Continue current chemotherapy bronchodilator therapy correction of fluid his electrolytes and follow the algorithm for a total synthesis planning. Assessment/Plan 1. PRIMARY ADENOCARCINOMA of the left breast. MULTIPLE BONY METS, PULMONARY METS;LIVER METS CHEMO ON HOLD; PT HAS A VERY GOOD RESPONSE TO CHEMO AND AI 2. Severe pain in the interscapular and lumbar sacral area most probably metastatic lesion possible femoral fracture. pathologic fracture of T9 with 60% of loss of height. Neurosurgical f/u. 3. Obesity. 4. Weight loss 60 pounds during the last 2 years by diet 5. PMS. 6. Myopia. 7. Anemia chronic disease with a drop of her hematocrit to 27; Latest results 28. Will recheck tomorrow;Leukopenia.Thrombocytopenia; 8. Anxiety disorder. Claustrophobia. Increase Ativan to 1 mg every 8 as needed at Lexapro 10 mg daily. 9. Posttraumatic stress disorder. 10. Pain in the left forearm with a history of fracture of ulna and radius. 11. Tachycardia-resolved 12. Hypoxemia at night marginal improved after 2 L of nasal cannula oxygen. 13. Deconditioning 14. 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 MRI: 09/28/18:diffuse osseous metastatic disease with multiple pathologic compression fractures at least involving the T4, T5, T7, T9 and T11 levels. There is likely mild cortical breakthrough at several levels resulting in mild central canal narrowing. No gross evidence of cord compression is seen.. 15. Pain syndrome. Today the most painful zone is in the right hip area. 16. Hyponatremia-corrected; today and hold Aldactone today. 17. Leucopenia-improved. 18. Neutropenia with occasional fever and chills. Last chemotherapy 5 days ago. 19. Hypoalbuminemia. 20.Right sided cp after catheter insertion and correction less discomfort. 21. Decreased edema both lower extremities with [id number] with Pleural and Pericardial effusion. 22. pain syndrome 23.bilateral pleural effusions ; s/p recurrent left thoracentesis Reaccumul ation of the pleural fluid. 24. Systolic over diastolic congestive heart failure with a right more than left lower extremity swelling with no DVT in latest venous Doppler. 25. Swelling of the left forearm-persist. Cellulitis of the left forearm with decreased edema anteriorly.-Today it is less edematous 26. Pathologic fracture of the right hip;s/p hemiarthroplasty of right hip . 27. Dizziness 28. Chills. 29. Memory impairment. 30. Upper respiratory infection pharyngitis with dry cough. 31. Decreased voice with wheezing. 32. Headaches 33. Hypokalemia- reoccured. Result Diagram: 11/23/18 0435 11/23/18 0435 Results 24hrs Laboratory Tests Test 11/23/18 14:39 Prothrombin Time 13.0 Prothrombin Time Ratio 1.0 INR International Normalized Ratio 0.97 Activated Partial Thromboplast Time 36.7 H Subjective 24 Hr Interval Summary Free Text/Dictation Persistent pain of the left forearm on the right hip mainly. Posterior chest pain. Pain is becoming intolerable when I am moving. Pain medications are helping about 70% I do not feel steady when I am walking. Constitutional: improved, poor po, requiring O2; No no complaints, No chills, No diaphoresis, No disoriented, No febrile, No requiring IVF, No other Eyes: No no complaints, No pain, No discharge, No redness, No visual change, No other ENT: congestion; No no complaints, No bleeding, No pain, No discharge, No dysphagia, No sore throat, No other Respiratory: cough, pleuritic pain, shortness of breath; No no complaints, No pain, No sputum, No wheezing, No other Cardiovascular: edema; No no complaints, No chest pain, No lightheadedness, No orthopenea, No palpitations, No paroxysmal nocturnal dyspnea, No other Gastrointestinal: No no complaints, No pain, No blood, No constipation, No decreased appetite, No diarrhea, No flatus, No nausea, No passing stool, No vomiting, No other Genitourinary: dysuria; No no complaints, No bleeding, No discharge, No flank pain, No hematuria, No other Musculoskeletal: back pain, bone/joint pain; No no complaints, No neck pain, No restricted range of motion, No swelling, No other Exam/Review of Systems Exam Vitals Vital Signs Date Temp Pulse Resp B/P (MAP) Pulse Ox O2 O2 Flow FiO2 Time Delivery Rate 11/24/18 78 94 21 09:48 11/24/18 98.1 78 133/81 08:22 (98) 11/21/18 Room Air 07:23 11/21/18 2.0 06:36 Intake and Output 11/23/18 11/23/18 11/24/18 1515:00 23:00 07:00 IntakeIntake Total 240 ml BalanceBalance 240 ml Constitutional: alert, oriented, well developed, distress, frail, obese; No non-verbal, No other Psych: anxiety; No no complaints, No nl mood/affect, No confusion, No depression, No domitila cidal, No other Head: normocephalic, atraumatic; No lacerations, No hematomas, No other Eyes: EOMI, nl lids; No nl conjunctiva, No nl sclera, No PERRL, No icteric, No fundi, disc, No other ENMT: No nl external ears & nose, No nl lips & teeth, No nl nasal mucosa & septum, No mucosa pink and moist, No intubated, No tympanic membranes, No other Neck: jvd; No supple, No non-tender, No bruits, No masses, No thyromegaly, No nuchal rigidity, No other Respiratory: congested cough, crackles/rales; No clear to auscultation, No normal air movement, No diminished breath sounds, No intercostal retraction, No labored breathing, No respirations, No tactile fremitus, No wheezing, No other Cardiovascular: nl pulses, bruits, edema, systolic murmur; No regular rate and rhythm, No diastolic murmur, No gallop, No irregular rhythm, No jugular venous distention (JVD), No murmurs/extra sounds, No rub, No S3, No S4, No other Gastrointestinal: soft, bowel sounds, distended; No nl liver, spleen, No non-tender, No ascites, No firm, No hepatomegaly, No mass, No rebound or guarding, No splenomegaly, No surgical scars, No tender, No other Musculoskeletal: joint tenderness, muscle tone, muscle weakness; No nl extremities to inspection, No nl gait and stance, No range of motion, No spine non-tender, No swelling, No other Extremities: normal pulses, pitting pedal edema (Right leg much more swollen c omparing with the left left upper extremity more swollen than right.) Neurological: MANAGER FLORAL 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; No nl mental status, No nl speech, No nl strength, No confused, No DTR's symmetric, No focal weakness, No lethargic, No numbness, No reflexes, No unresponsive, No other Skin: nl turgor, ecchymosis Lymph: nl lymph nodes; No enlarged, No nontender, No other Results Results 24hrs Laboratory Tests Test 11/23/18 14:39 Prothrombin Time 13.0 Prothrombin Time Ratio 1.0 INR International Normalized Ratio 0.97 Activated Partial Thromboplast Time 36.7 H Medications Medication Current Medications Oxycodone HCl (Oxycontin) 20 mg Q12 PO Last administered on 11/24/18 08:44; Admin Dose 20 MG; Start 10/22/18 at 09:00 Morphine Sulfate (morphine) 2 mg Q4H PRN IV SEVERE PAIN LEVEL 7-10 Last administered on 11/24/18 05:31; Admin Dose 2 MG; Start 10/22/18 at 01:30 Phenol (Cepastat Lozenge) 1 lozenge Q1H PRN MT sore throat Last administered on 10/31/18 18:34; Admin Dose 1 LOZENGE; Start 10/27/18 at 21:30 Budesonide (Pulmicort (Neb)) 0.5 mg BID RESP THERAPY HHN Last administered on 11/24/18 09:43; Admin Dose 0.5 MG; Start 10/30/18 at 09:00 Metolazone (Zaroxolyn) 2.5 mg BID@0530,1730 PO Last administered on 11/24/18 05:31; Admin Dose 2.5 MG; Start 11/01/18 at 05:30 Enoxaparin Sodium (Lovenox) 40 mg DAILY SC Last administered on 11/23/18 09:02; Admin Dose 40 MG; Start 11/02/18 at 09:00; Status Hold Ibuprofen (Motrin) 400 mg Q6H PRN PO MILD PAIN(1-3) OR TEMP>38C Last administered on 11/24/18 08:55; Admin Dose 400 MG; Start 11/07/18 at 12:20 Potassium Chloride (Klor-Con 20) 20 meq BID PO Last administered on 11/24/18 08:44; Admin Dose 20 MEQ; Start 11/11/18 at 09:00 Ondansetron HCl (Zofran Inj) 4 mg Q6H PRN IV NAUSEA AND/OR VOMITING Last administered on 11/19/18 20:21; Admin Dose 4 MG; Start 11/19/18 at 20:30 Bumetanide (Bumex) 0.5 mg DAILY PO Last administered on 11/24/18 08:44; Admin Dose 0.5 MG; Start 11/20/18 at 09:00 Diphenhydramine HCl (Benadryl) 25 mg Q8H PRN PO ITCHING Last administered on 11/24/18 08:55; Admin Dose 25 MG; Start 11/20/18 at 14:00 Bisacodyl (Dulcolax Supp) 10 mg Q8H PRN [place] CONSTIPATION; Start 11/20/18 at 17:30 Guaifenesin/ Codeine Phosphate (Robitussin Ac Liquid Cup) 10 ml Q4H PRN PO COUGH; Start 11/20/18 at 17:30 Magnesium Hydroxide (Milk Of Mag) 30 ml DAILY PRN PO CONSTIPATION Last administered on 11/24/18 08:45; Admin Dose 30 ML; Start 11/20/18 at 17:30 Simethicone (Mylicon) 80 mg Q8H PRN PO INDIGESTION; Start 11/20/18 at 23:30 Miscellaneous Information (*Order Clarification Bulletin) MEDICATION REQUIRES CLARIFICATI... Q8H XX ; Start 11/21/18 at 08:00 Miscellaneous Information (*Order Clarification Bulletin) MEDICATION REQUIRES CLARIFICATI... Q8H XX ; Start 11/21/18 at 10:00 RUSS JEROME MD Nov 24, 2018 11:25
[2018-11-24] MEDS ORDERED: LIDOCAINE 1% (MPF) 5 ML VIAL ONE (13:11)
--- NOTE | 2018-11-24 14:59 | CONS ---
Assessment/Plan Assessment/Plan Hospital Course (Demo Recall) IMPRESSION: 1. Congestive heart failure exacerbation would be diastolic, acute on chronic by most recent echo.-now s/p echo this admit with EF 60/small effusion 2. Abnormal electrocardiogram with low voltage, rule out pericardial effusion. 3. Hypertension-currently borderline hypotension 4. Metastatic breast carcinoma. 5. History of pathologic fractures of the leg, status post open reduction and internal fixation. 6. Anemia. 7. Increased BNP consistent with patient's congestive heart failure. 8. Pericardial effusion-small by echo 9. Edema-LE venous UTZneg for DVT 10. Hypokalemia-on aldactone nd daily repletion of K 11.Wrist fracture acute by films 11/20 12. Pleural effusion s/p thoracentesis today Recc: -On med-surg -Continued on metolazone and low dose PO bumex at lower dose with overall significantly improved volume status and resolution of much of LLE edema but still ongoing assymetric LE edema in leg with fractures -renal and onc following and now endocrine for bone density -REsume baseline aldactone/coreg as reached ? end date by pharmacy -follow K clsoely -currently conservative management of wrist fracture -follow temperature closely Consultation Date/Type/Reason Admit Date/Time October 21, 2018 at 17:39 Initial Consult Date 10/21/18 Type of Consult Cardiology Reason for Consultation CHF Requesting Provider: RUSS JEROME MD Date/Time of Note DATE: 11/24/18 TIME: 14:56 Exam/Review of Systems Vital Signs Vitals Vital Signs Date Temp Pulse Resp B/P (MAP) Pulse Ox O2 O2 Flow FiO2 Time Delivery Rate 11/24/18 78 94 21 09:48 11/24/18 98.1 78 133/81 08:22 (98) 11/21/18 Room Air 07:23 11/21/18 2.0 06:36 Intake and Output 11/23/18 11/23/18 11/24/18 1515:00 23:00 07:00 IntakeIntake Total 240 ml BalanceBalance 240 ml Exam Exam Review of Systems: CONSTITUTIONAL: very cold today with chills PULMONARY: No sob CARDIOVASCULAR: No chest pain/palpitations GASTROINTESTINAL: No nausea/vomiting. GENITOURINARY: No hematuria/dysuria. MUSCULOSKELETAL: No myagias/arthalgias. PSYCHIATRIC: The patient denies depression. NEUROLOGIC: No weakness Constitutional: alert, oriented Psych: no complaints Head: normocephalic ENMT: mucosa pink and moist Neck: supple, jvd (9 cm water) Respiratory: diminished breath sounds (at bases/B) Cardiovascular: regular rate and rhythm Gastrointestinal: soft, non-tender Musculoskeletal: muscle tone (normal) Extremities: edema (R>L) Neurological: other (no focal defecits but generalizedweakness) Labs Result Diagram: 11/23/1843411/23/18434 Medications Medications Current Medications Morphine Sulfate (morphine) 2 mg Q4H PRN IV SEVERE PAIN LEVEL 7-10 Last administered on 11/24/18 05:31; Admin Dose 2 MG; Start 10/22/18 at 01:30 Phenol (Cepastat Lozenge) 1 lozenge Q1H PRN MT sore throat Last administered on 10/31/18 18:34; Admin Dose 1 LOZENGE; Start 10/27/18 at 21:30 Budesonide (Pulmicort (Neb)) 0.5 mg BID RESP THERAPY HHN Last administered on 11/24/18 09:43; Admin Dose 0.5 MG; Start 10/30/18 at 09:00 Metolazone (Zaroxolyn) 2.5 mg BID@0530,1730 PO Last administered on 11/24/18 05:31; Admin Dose 2.5 MG; Start 11/01/18 at 05:30 Enoxaparin Sodium (Lovenox) 40 mg DAILY SC Last administered on 11/23/18 09:02; Admin Dose 40 MG; Start 11/02/18 at 09:00; Status Hold Ibuprofen (Motrin) 400 mg Q6H PRN PO MILD PAIN(1-3) OR TEMP>38C Last administered on 11/24/18 08:55; Admin Dose 400 MG; Start 11/07/18 at 12:20 Potassium Chloride (Klor-Con 20) 20 meq BID PO Last administered on 11/24/18 08:44; Admin Dose 20 MEQ; Start 11/11/18 at 09:00 Ondansetron HCl (Zofran Inj) 4 mg Q6H PRN IV NAUSEA AND/OR VOMITING Last administered on 11/19/18 20:21; Admin Dose 4 MG; Start 11/19/18 at 20:30 Bumetanide (Bumex) 0.5 mg DAILY PO Last administered on 11/24/18at 08:44; Admin Dose 0.5 MG; Start 11/20/18 at 09:00 Diphenhydramine HCl (Benadryl) 25 mg Q8H PRN PO ITCHING Last administered on 11/24/18at 08:55; Admin Dose 25 MG; Start 11/20/18 at 14:00 Bisacodyl (Dulcolax Supp) 10 mg Q8H PRN [place] CONSTIPATION; Start 11/20/18 at 17:30 Guaifenesin/ Codeine Phosphate (Robitussin Ac Liquid Cup) 10 ml Q4H PRN PO COUGH; Start 11/20/18 at 17:30 Magnesium Hydroxide (Milk Of Mag) 30 ml DAILY PRN PO CONSTIPATION Last administered on 11/24/18at 08:45; Admin Dose 30 ML; Start 11/20/18 at 17:30 Simethicone (Mylicon) 80 mg Q8H PRN PO INDIGESTION; Start 11/20/18 at 23:30 Miscellaneous Information (*Order Clarification Bulletin) MEDICATION REQUIRES CLARIFICATI... Q8H XX ; Start 11/21/18 at 08:00 Miscellaneous Information (*Order Clarification Bulletin) MEDICATION REQUIRES CLARIFICATI... Q8H XX ; Start 11/21/18 at 10:00 Oxycodone HCl (Oxycontin) 20 mg Q12 PO ; Start 11/24/18 at 21:00; Stop 11/30/18 at 20:59 KAMILA TERESA Nov 24, 2018 14:59
[2018-11-24] MEDS: ESCITALOPRAM 10 MG TAB PO SCH (18:42)
[2018-11-25 02:47] VITALS: BP 123/73; PULSE 85; RESP 18
[2018-11-25] MEDS: METOLAZONE 2.5 MG TAB PO SCH ×2 (06:17→18:05)
[2018-11-25 07:14] VITALS: BP 127/57; PULSE 84; RESP 19
[2018-11-25] MEDS ORDERED: LIDOCAINE 1% (MPF) 5 ML VIAL ONE (08:45)
[2018-11-25 08:48] VITALS: BP 105/64; PULSE 91; RESP 20
--- NOTE | 2018-11-25 08:48 | PN ---
Date/Time of Note Date/Time of Note DATE: 11/25/18 TIME: 08:46 Assessment/Plan VTE Prophylaxis Risk score (from Ns)>0 risk: 14 SCD applied (from Ns): No SCD contraindicated: other (on.) Pharmacological prophylaxis: other (Low H&H and thoracentesis.) Lines/Catheters IV Catheter Type (from [facility]): Peripheral IV Central line still needed: Yes Urinary Cath still in place: No Assessment/Plan Hospital Course Rrecurrent thoracentesis from left pleural cavity.Bronchitis got treated slowly. CHF improved but not totally gone. Continue current chemotherapy bronchodilator therapy correction of fluid his electrolytes and follow the [facility] for a total synthesis planning. Assessment/Plan 1. PRIMARY ADENOCARCINOMA of the left breast. MULTIPLE BONY METS, PULMONARY METS;LIVER METS CHEMO ON HOLD; PT HAS A VERY GOOD RESPONSE TO CHEMO AND AI 2. Severe pain in the interscapular and lumbar sacral area most probably metastatic lesion possible femoral fracture. pathologic fracture of T9 with 60% of loss of height. Neurosurgical f/u. 3. Obesity. 4. Weight loss 60 pounds during the last 2 years by diet 5. PMS. 6. Myopia. 7. Anemia chronic disease with a drop of her hematocrit to 27; Latest results 28. Will recheck tomorrow;Leukopenia.Thrombocytopenia; 8. Anxiety disorder. Claustrophobia. Increase Ativan to 1 mg every 8 as needed at Lexapro 10 mg daily. 9. Posttraumatic stress disorder. 10. Pain in the left forearm with a history of fracture of ulna and radius. 11. Tachycardia-resolved 12. Hypoxemia at night marginal improved after 2 L of nasal cannula oxygen. 13. Deconditioning 14. 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 MRI: 09/28/18:diffuse osseous metastatic disease with multiple pathologic compression fractures at least involving the T4, T5, T7, T9 and T11 levels. There is likely mild cortical breakthrough at several levels resulting in mild central canal narrowing. No gross evidence of cord compression is seen.. 15. Pain syndrome. Today the most painful zone is in the right hip area. 16. Hyponatremia-corrected; today and hold Aldactone today. 17. Leucopenia-improved. 18. Neutropenia with occasional fever and chills. Last chemotherapy 5 days ago. 19. Hypoalbuminemia. 20.Right sided cp after catheter insertion and correction less discomfort. 21. Decreased edema both lower extremities with [id number] with Pleural and Pericardial effusion. 22. pain syndrome 23.bilateral pleural effusions ; s/p recurrent left thoracentesis Reaccumulation of the pleural fluid. 24. Systolic over diastolic congestive heart failure with a right more than left lower extremity swelling with no DVT in latest venous Doppler. 25. Swelling of the left forearm-persist. Cellulitis of the left forearm with decreased edema anteriorly.-Today it is less edematous 26. Pathologic fracture of the right hip;s/p hemiarthroplasty of right hip . 27. Dizziness 28. Chills. 29. Memory impairment. 30. Upper respiratory infection pharyngitis with dry cough. 31. Decreased voice with wheezing. 32. Headaches 33. Hypokalemia- reoccured. Result Diagram: 11/25/18 0503 11/25/18 0503 Results 24hrs Laboratory Tests Test 11/25/18 05:03 White Blood Count 4.4 L Red Blood Count 3.37 L Hemoglobin 11.2 L Hematocrit 33.6 L Mean Corpuscular Volume 99.7 Mean Corpuscular Hemoglobin 33.2 H Mean Corpuscular Hemoglobin Concent 33.3 Red Cell Distribution Width 14.3 Platelet Count 192 Mean Platelet Volume 9.6 Immature Granulocytes % 0.000 L Neutrophils % 37.8 L Lymphocytes % 43.2 Monocytes % 13.7 H Eosinophils % 3.9 Basophils % 1.4 Nucleated Red Blood Cells % 0.0 Immature Granulocytes # 0.000 Neutrophils # 1.7 Lymphocytes # 1.9 Monocytes # 0.6 Eosinophils # 0.2 Basophils # 0.1 Nucleated Red Blood Cells # 0.0 Sodium Level 135 Potassium Level 3.8 Chloride Level 96 L Carbon Dioxide Level 34 H Anion Gap 5 Blood Urea Nitrogen 31 H Creatinine 0.81 Est Glomerular Filtrat Rate mL/min > 60 Glucose Level 96 Calcium Level 8.9 Phosphorus Level 5.4 H Magnesium Level 2.0 Subjective 24 Hr Interval Summary Free Text/Dictation Breathing improved significantly after thoracentesis. Patient with dizziness and severe weakness. Constitutional: improved, chills, diaphoresis, poor po, requiring O2; No no complaints, No disoriented, No febrile, No requiring IVF, No other Eyes: No no complaints, No pain, No discharge, No redness, No visual change, No other ENT: congestion; No no complaints, No bleeding, No pain, No discharge, No dysphagia, No sore throat, No other Respiratory: cough; No no complaints, No pain, No pleuritic pain, No shortness of breath, No sputum, No wheezing, No other Cardiovascular: edema, lightheadedness, orthopenea, palpitations; No no complaints, No chest pain, No paroxysmal nocturnal dyspnea, No other Gastrointestinal: constipation, decreased appetite; No no complaints, No pain, No blood, No diarrhea, No flatus, No nausea, No passing stool, No vomiting, No other Genitourinary: dysuria; No no complaints, No bleeding, No discharge, No flank pain, No hematuria, No other Musculoskeletal: back pain, bone/joint pain; No no complaints, No neck pain, No restricted range of motion, No swelling, No other Skin: No no complaints, No bruising, No erythema, No laceration, No pruritis, No rash, No skin lesions, No other Neurologic: dizziness, headache; No no complaints, No confusion, No focal-weakness, No syncope, No seizure, No other Endocrine: No no complaints, No polyuria, No polydypsia, No dry skin, No temp intolerance, No other Lymphatic: No no complaints, No adenopathy, No tender nodes, No lymphadema, No other Psychological: anxiety; No no complaints, No nl mood/affect, No confusion, No depression, No suicidal, No other Exam/Review of Systems Exam Vitals Vital Signs Date Temp Pulse Resp B/P (MAP) Pulse Ox O2 O2 Flow FiO2 Time Delivery Rate 11/25/18 98.2 84 19 127/57 99 07:14 (80) 11/25/18 Room Air 02:47 11/24/18 21 09:48 Intake and Output 11/24/18 11/24/18 11/25/18 1515:00 23:00 07:00 IntakeIntake Total 480 ml 360 ml 400 ml BalanceBalance 480 ml 360 ml 400 ml Constitutional: alert, oriented, well developed, distress, frail; No non-verbal, No obese, No other Psych: anxiety, confusion, depression; No no complaints, No nl mood/affect, No suicidal, No other Head: normocephalic, atraumatic Eyes: EOMI, nl lids, PERRL; No nl conjunctiva, No nl sclera, No icteric, No fundi, disc, No other ENMT: nl nasal mucosa & septum; No nl external ears & nose, No nl lips & teeth, No mucosa pink and moist, No intubated, No tympanic membranes, No other Neck: jvd, bruits, nuchal rigidity; No supple, No non-tender, No masses, No thyromegaly, No other Respiratory: normal air movement, diminished breath sounds; No clear to auscultation, No congested cough, No crackles/rales, No intercostal retraction, No labored breathing, No respirations, No tactile fremitus, No wheezing, No other Cardiovascular: regular rate and rhythm, bruits; No nl pulses, No diastolic murmur, No edema, No gallop, No irregular rhythm, No jugular venous distention (JVD), No murmurs/extra sounds, No rub, No systolic murmur, No S3, No S4, No other Gastrointestinal: soft, bowel sounds; No nl liver, spleen, No non-tender, No ascites, No distended, No firm, No hepatomegaly, No mass, No rebound or guarding, No splenomegaly, No surgical scars, No tender, No other Musculoskeletal: joint tenderness, muscle tone, muscle weakness; No nl extremities to inspection, No nl gait and stance, No range of motion, No spine non-tender, No swelling, No other Extremities: No normal pulses, No calf tenderness, No cyanosis, No clubbing, No edema, No pitting pedal edema, No palpable cord, No tenderness, No other Neurological: GROCERY BAGGER 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; No nl mental status, No nl speech, No nl strength, No confused, No DTR's symmetric, No focal weakness, No lethargic, No numbness, No reflexes, No unresponsive, No other Results Results 24hrs Laboratory Tests Test 11/25/18 05:03 White Blood Count 4.4 L Red Blood Count 3.37 L Hemoglobin 11.2 L Hematocrit 33.6 L Mean Corpuscular Volume 99.7 Mean Corpuscular Hemoglobin 33.2 H Mean Corpuscular Hemoglobin Concent 33.3 Red Cell Distribution Width 14.3 Platelet Count 192 Mean Platelet Volume 9.6 Immature Granulocytes % 0.000 L Neutrophils % 37.8 L Lymphocytes % 43.2 Monocytes % 13.7 H Eosinophils % 3.9 Basophils % 1.4 Nucleated Red Blood Cells % 0.0 Immature Granulocytes # 0.000 Neutrophils # 1.7 Lymphocytes # 1.9 Monocytes # 0.6 Eosinophils # 0.2 Basophils # 0.1 Nucleated Red Blood Cells # 0.0 Sodium Level 135 Potassium Level 3.8 Chloride Level 96 L Carbon Dioxide Level 34 H Anion Gap 5 Blood Urea Nitrogen 31 H Creatinine 0.81 Est Glomerular Filtrat Rate mL/min > 60 Glucose Level 96 Calcium Level 8.9 Phosphorus Level 5.4 H Magnesium Level 2.0 Medications Medication Current Medications Morphine Sulfate (morphine) 2 mg Q4H PRN IV SEVERE PAIN LEVEL 7-10 Last administered on 11/24/18 05:31; Admin Dose 2 MG; Start 10/22/18 at 01:30 Phenol (Cepastat Lozenge) 1 lozenge Q1H PRN MT sore throat Last administered on 10/31/18 18:34; Admin Dose 1 LOZENGE; Start 10/27/18 at 21:30 Budesonide (Pulmicort (Neb)) 0.5 mg BID RESP THERAPY HHN Last administered on 11/24/18 09:43; Admin Dose 0.5 MG; Start 10/30/18 at 09:00 Metolazone (Zaroxolyn) 2.5 mg BID@0530,1730 PO Last administered on 11/25/18 06:17; Admin Dose 2.5 MG; Start 11/01/18 at 05:30 Enoxaparin Sodium (Lovenox) 40 mg DAILY SC Last administered on 11/23/18 09:02; Admin Dose 40 MG; Start 11/02/18 at 09:00; Status Hold Ibuprofen (Motrin) 400 mg Q6H PRN PO MILD PAIN(1-3) OR TEMP>38C Last administered on 11/24/18 08:55; Admin Dose 400 MG; Start 11/07/18 at 12:20 Potassium Chloride (Klor-Con 20) 20 meq BID PO Last administered on 11/24/18 21:49; Admin Dose 20 MEQ; Start 11/11/18 at 09:00 Ondansetron HCl (Zofran Inj) 4 mg Q6H PRN IV NAUSEA AND/OR VOMITING Last administered on 11/19/18 20:21; Admin Dose 4 MG; Start 11/19/18 at 20:30 Bumetanide (Bumex) 0.5 mg DAILY PO Last administered on 11/24/18 08:44; Admin Dose 0.5 MG; Start 11/20/18 at 09:00 Diphenhydramine HCl (Benadryl) 25 mg Q8H PRN PO ITCHING Last administered on 11/24/18at 08:55; Admin Dose 25 MG; Start 11/20/18 at 14:00 Bisacodyl (Dulcolax Supp) 10 mg Q8H PRN [place] CONSTIPATION; Start 11/20/18 at 17:30 Guaifenesin/ Codeine Phosphate (Robitussin Ac Liquid Cup) 10 ml Q4H PRN PO COUGH; Start 11/20/18 at 17:30 Magnesium Hydroxide (Milk Of Mag) 30 ml DAILY PRN PO CONSTIPATION Last administered on 11/24/18at 08:45; Admin Dose 30 ML; Start 11/20/18 at 17:30 Simethicone (Mylicon) 80 mg Q8H PRN PO INDIGESTION; Start 11/20/18 at 23:30 Miscellaneous Information (*Order Clarification Bulletin) MEDICATION REQUIRES CLARIFICATI... Q8H XX ; Start 11/21/18 at 08:00 Miscellaneous Information (*Order Clarification Bulletin) MEDICATION REQUIRES CLARIFICATI... Q8H XX ; Start 11/21/18 at 10:00 Oxycodone HCl (Oxycontin) 20 mg Q12 PO Last administered on 11/24/18at 21:50; Admin Dose 20 MG; Start 11/24/18 at 21:00; Stop 11/30/18 at 20:59 Escitalopram Oxalate (Lexapro) 10 mg DAILY PO Last administered on 11/24/18at 18:42; Admin Dose 10 MG; Start 11/24/18 at 19:00 RUSS JEROME MD Nov 25, 2018 08:48
[2018-11-25] MEDS: BUDESONIDE (NEB) 0.5MG/2ML AMP HHN SCH ×2 (09:00→19:26)
--- NOTE | 2018-11-25 09:01 | PN ---
DATE: 11/25/2018 SUBJECTIVE: The patient is stable, no events overnight. No fevers, chills, nausea, vomiting. OBJECTIVE: VITAL SIGNS: Blood pressure is 127/57, pulse 84, respirations 19, temperature 98.2. HEENT: Head is normocephalic. NECK: Supple. HEART: Regular rate. LUNGS: Show diminished breath sounds at the base. ABDOMEN: Soft, nontender to palpation without rebound or guarding. EXTREMITIES: Negative for clubbing, cyanosis. Trace edema. DERMATOLOGIC: No rashes. MUSCULOSKELETAL: No joint effusion. NEUROLOGIC: No change in exam. MEDICATIONS: The patient's medications have been reviewed. LABORATORY DATA: Reviewed. ASSESSMENT AND PLAN: 1. Volume overload, improving. The patient is near euvolemic status. Continue current diuretic reg imen. 2. Hyperkalemia, resolved. 3. Metabolic alkalemia, improving. Continue to monitor. 4. Nonoliguric acute kidney injury. Etiology is secondary to hemodynamics. Renal function is stabl e, continue to monitor. 5. Mineral bone disorder, monitor calcium and phosphorus levels. 6. Hip fracture, status post arthroplasty. 7. Breast cancer with metastasis. Follow up with oncology. 8. Left radial and ulnar fractures. Continue to monitor. 9. Chronic pain syndrome. 10. Status post bronchitis. Dictated By: ANDRÉS TATUM DO NR/NTS Conf#: [id number] DID#: [id number] CC: ALMA CORDOVA MD; RUSS JEROME MD;*EndCC*
[2018-11-25] MEDS: POTASSIUM CHLORIDE (SR) 20 MEQ TAB PO SCH ×2 (09:46→20:28)
[2018-11-25] MEDS: BUMETANIDE 0.5 MG TAB PO SCH (09:46)
[2018-11-25] MEDS: oxyCODONE (CR) 20 MG TAB [oxyCONTIN] PO SCH ×2 (09:46→20:27)
[2018-11-25] MEDS: ESCITALOPRAM 10 MG TAB PO SCH (09:46)
[2018-11-25 09:55] VITALS: BP 120/61; PULSE 81; RESP 20
[2018-11-25] MEDS: POLYETHYLENE GLYCOL 17 GM PACKET PO SCH (10:56)
[2018-11-25] MEDS: PANTOPRAZOLE (EC) 40 MG TAB PO SCH (10:57)
[2018-11-25] MEDS: DOCUSATE SODIUM 100 MG CAP PO SCH ×2 (10:57→20:27)
[2018-11-25] MEDS: LORATADINE 10 MG TAB PO SCH (10:57)
[2018-11-25] MEDS: SPIRONOLACTONE 50 MG TAB PO SCH (10:57)
[2018-11-25] MEDS: ANASTROZOLE 1 MG TAB PO SCH (10:58)
--- NOTE | 2018-11-25 13:11 | CONS ---
Assessment/Plan Assessment/Plan Hospital Course (Demo Recall) IMPRESSION: 1. Congestive heart failure exacerbation would be diastolic, acute on chronic by most recent echo.-now s/p echo this admit with EF 60/small effusion 2. Abnormal electrocardiogram with low voltage, rule out pericardial effusion. 3. Hypertension-currently borderline hypotension 4. Metastatic breast carcinoma. 5. History of pathologic fractures of the leg, status post open reduction and internal fixation. 6. Anemia. 7. Increased BNP consistent with patient's congestive heart failure. 8. Pericardial effusion-small by echo 9. Edema-LE venous UTZneg for DVT 10. Hypokalemia 11.Wrist fracture acute by films 11/20-conservative management at this time 12. Pleural effusion s/p thoracentesis today Recc: -On med-surg -Continued on metolazone and low dose PO bumex and again on aldactone with overall reasonable volume status and resolution of much of LLE edema but still ongoing asymetric LE edema in leg with fractures -renal and onc following and now endocrine for bone density -continue loow dose coreg -follow K clsoely which i8s reasonable today on aldactone -currently conservative management of wrist fracture -follow temperature closely Consultation Date/Type/Reason Admit Date/Time October 21, 2018 at 17:39 Initial Consult Date 10/21/18 Type of Consult Cardiology Reason for Consultation CHF Requesting Provider: RUSS JEROME MD Date/Time of Note DATE: 11/25/18 TIME: 13:08 Exam/Review of Systems Vital Signs Vitals Vital Signs Date Temp Pulse Resp B/P (MAP) Pulse Ox O2 O2 Flow FiO2 Time Delivery Rate 11/25/18 98.2 81 20 120/61 98 09:55 (80) 11/25/18 Room Air 08:48 11/24/18 21 09:48 Intake and Output 11/24/18 11/24/18 11/25/18 1515:00 23:00 07:00 IntakeIntake Total 480 ml 360 ml 400 ml BalanceBalance 480 ml 360 ml 400 ml Exam Exam Review of Systems: CONSTITUTIONAL: No fevers, chills. PULMONARY: No sob CARDIOVASCULAR: No chest pain/palpitations GASTROINTESTINAL: No nausea/vomiting. GENITOURINARY: No hematuria/dysuria. MUSCULOSKELETAL: No myagias/arthalgias. PSYCHIATRIC: The patient denies depression. NEUROLOGIC: No weakness Constitutional: alert Psych: no complaints Head: normocephalic ENMT: mucosa pink and moist Neck: supple, jvd (9 cm water) Respiratory: clear to auscultation Cardiovascular: regular rate and rhythm Gastrointestinal: soft, non-tender Musculoskeletal: muscle weakness (generalized) Extremities: edema (R>L) Neurological: other (no focal deficits) Labs Result Diagram: 11/25/18 0503 11/25/18 0503 Results 24hrs Laboratory Tests Test 11/25/18 05:03 White Blood Count 4.4 L Red Blood Count 3.37 L Hemoglobin 11.2 L Hematocrit 33.6 L Mean Corpuscular Volume 99.7 Mean Corpuscular Hemoglobin 33.2 H Mean Corpuscular Hemoglobin Concent 33.3 Red Cell Distribution Width 14.3 Platelet Count 192 Mean Platelet Volume 9.6 Immature Granulocytes % 0.000 L Neutrophils % 37.8 L Lymphocytes % 43.2 Monocytes % 13.7 H Eosinophils % 3.9 Basophils % 1.4 Nucleated Red Blood Cells % 0.0 Immature Granulocytes # 0.000 Neutrophils # 1.7 Lymphocytes # 1.9 Monocytes # 0.6 Eosinophils # 0.2 Basophils # 0.1 Nucleated Red Blood Cells # 0.0 Sodium Level 135 Potassium Level 3.8 Chloride Level 96 L Carbon Dioxide Level 34 H Anion Gap 5 Blood Urea Nitrogen 31 H Creatinine 0.81 Est Glomerular Filtrat Rate mL/min > 60 Glucose Level 96 Calcium Level 8.9 Phosphorus Level 5.4 H Magnesium Level 2.0 Medications Medications Current Medications Morphine Sulfate (morphine) 2 mg Q4H PRN IV SEVERE PAIN LEVEL 7-10 Last administered on 11/24/18at 05:31; Admin Dose 2 MG; Start 10/22/18 at 01:30 Phenol (Cepastat Lozenge) 1 lozenge Q1H PRN [place] sore throat Last administered on 10/31/18at 18:34; Admin Dose 1 LOZENGE; Start 10/27/18 at 21:30 Budesonide (Pulmicort (Neb)) 0.5 mg BID RESP THERAPY HHN Last administered on 11/24/18at 09:43; Admin Dose 0.5 MG; Start 10/30/18 at 09:00 Metolazone (Zaroxolyn) 2.5 mg BID@7230,1730 PO Last administered on 11/25/18 06:17; Admin Dose 2.5 MG; Start 11/01/18 at 05:30 Enoxaparin Sodium (Lovenox) 40 mg DAILY SC Last administered on 11/23/18 09:02; Admin Dose 40 MG; Start 11/02/18 at 09:00; Status Hold Ibuprofen (Motrin) 400 mg Q6H PRN PO MILD PAIN(1-3) OR TEMP>38C Last administered on 11/24/18 08:55; Admin Dose 400 MG; Start 11/07/18 at 12:20 Potassium Chloride (Klor-Con 20) 20 meq BID PO Last administered on 11/25/18 09:46; Admin Dose 20 MEQ; Start 11/11/18 at 09:00 Ondansetron HCl (Zofran Inj) 4 mg Q6H PRN IV NAUSEA AND/OR VOMITING Last administered on 11/19/18 20:21; Admin Dose 4 MG; Start 11/19/18 at 20:30 Bumetanide (Bumex) 0.5 mg DAILY PO Last administered on 11/25/18 09:46; Admin Dose 0.5 MG; Start 11/20/18 at 09:00 Diphenhydramine HCl (Benadryl) 25 mg Q8H PRN PO ITCHING Last administered on 11/24/18 08:55; Admin Dose 25 MG; Start 11/20/18 at 14:00 Bisacodyl (Dulcolax Supp) 10 mg Q8H PRN [place] CONSTIPATION; Start 11/20/18 at 17:30 Guaifenesin/ Codeine Phosphate (Robitussin Ac Liquid Cup) 10 ml Q4H PRN PO COUGH; Start 11/20/18 at 17:30 Magnesium Hydroxide (Milk Of Mag) 30 ml DAILY PRN PO CONSTIPATION Last adm inistered on 11/24/18 08:45; Admin Dose 30 ML; Start 11/20/18 at 17:30 Simethicone (Mylicon) 80 mg Q8H PRN PO INDIGESTION; Start 11/20/18 at 23:30 Miscellaneous Information (*Order Clarification Bulletin) MEDICATION REQUIRES CLARIFICATI... Q8H XX ; Start 11/21/18 at 08:00 Miscellaneous Information (*Order Clarification Bulletin) MEDICATION REQUIRES CLARIFICATI... Q8H XX ; Start 11/21/18 at 10:00 Oxycodone HCl (Oxycontin) 20 mg Q12 PO Last administered on 11/25/18 09:46; Admin Dose 20 MG; Start 11/24/18 at 21:00; Stop 11/30/18 at 20:59 Escitalopram Oxalate (Lexapro) 10 mg DAILY PO Last administered on 11/25/18 09:46; Admin Dose 10 MG; Start 11/24/18 at 19:00 Anastrozole (Arimidex) 1 mg DAILY PO Last administered on 11/25/18 10:58; Admin Dose 1 MG; Start 11/25/18 at 10:30 Carvedilol (Coreg) 3.125 mg BID PO Last administered on 11/25/18 10:57; Admin Dose 3.125 MG; Start 11/25/18 at 10:30 Docusate Sodium (Colace) 100 mg BID PO Last administered on 11/25/18 10:57; Admin Dose 100 MG; Start 11/25/18 at 10:30 Loratadine (Claritin) 10 mg DAILY PO Last administered on 11/25/18 10:57; Admin Dose 10 MG; Start 11/25/18 at 10:30 Pantoprazole (Protonix Tab) 40 mg AC BREAKFAST PO Last administered on 11/25/18 10:57; Admin Dose 40 MG; Start 11/25/18 at 10:30 Polyethylene Glycol (Miralax) 17 gm DAILY PO Last administered on 11/25/18 10:56; Admin Dose 17 GM; Start 11/25/18 at 10:30 Spironolactone (Aldactone) 50 mg DAILY PO Last administered on 11/25/18 10:57; Admin Dose 50 MG; Start 11/25/18 at 10:30 KAMILA TERESA Nov 25, 2018 13:11
[2018-11-25] MEDS: DIPHENHYDRAMINE 25 MG CAP PO PRN (14:36)
[2018-11-25 19:57] VITALS: BP 139/70; PULSE 87; RESP 18
[2018-11-26 02:11] VITALS: BP 121/77; PULSE 94; RESP 18
[2018-11-26] MEDS: DIPHENHYDRAMINE 25 MG CAP PO PRN ×2 (02:44→13:21)
[2018-11-26] MEDS: PANTOPRAZOLE (EC) 40 MG TAB PO SCH (06:21)
[2018-11-26] MEDS: METOLAZONE 2.5 MG TAB PO SCH ×2 (06:21→18:03)
[2018-11-26 07:22] VITALS: BP 104/64; PULSE 80; RESP 18
[2018-11-26] MEDS: BUDESONIDE (NEB) 0.5MG/2ML AMP HHN SCH ×2 (08:24→20:00)
--- NOTE | 2018-11-26 08:35 | PN ---
DATE: 11/26/2018 SUBJECTIVE: The patient is stable, no events overnight. OBJECTIVE: VITAL SIGNS: Blood pressure is 104/64, pulse 80, respiration 18, temperature 97.8. HEENT: Head is normocephalic. NECK: Supple. HEART: Regular rate. LUNGS: Show diminished breath sounds at the base. ABDOMEN: Soft, nontender to palpation without rebound or guarding. EXTREMITIES: Negative for clubbing, cyanosis, no edema. DERMATOLOGIC: No rashes. MUSCULOSKELETAL: No joint effusion. NEUROLOGIC: No change in exam. MEDICATIONS: The patient's medications have been reviewed. LABORATORY DATA: Has been reviewed. ASSESSMENT AND PLAN: 1. Volume overload, improving. The patient appears to be near euvolemic status. Continue current d iuretic regimen. 2. Hyperkalemia, resolved. 3. Metabolic alkalemia, improved. 4. Nonoliguric acute kidney injury. Etiology is secondary to hemodynamics, diuretic therapy. Renal function stable, continue to monitor. 5. Mineral bone disorder, monitor calcium and phosphorus levels. 6. Hip fracture, status post arthroplasty. 7. Breast cancer with metastasis. 8. Left radial and ulnar fractures. Continue to monitor. 9. Chronic pain syndrome. 10. Status post bronchitis. Dictated By: ANDRÉS TATUM DO NR/NTS Conf#: [id number] DID#: [id number] CC: RUSS JEROME MD; ALMA CORDOVA MD;*EndCC*
[2018-11-26] MEDS: BUMETANIDE 0.5 MG TAB PO SCH (08:48)
[2018-11-26] MEDS: LORATADINE 10 MG TAB PO SCH (08:48)
[2018-11-26] MEDS: SPIRONOLACTONE 50 MG TAB PO SCH (08:49)
[2018-11-26] MEDS: POTASSIUM CHLORIDE (SR) 20 MEQ TAB PO SCH ×2 (08:49→21:22)
[2018-11-26] MEDS: DOCUSATE SODIUM 100 MG CAP PO SCH ×2 (08:49→21:26)
[2018-11-26] MEDS: ESCITALOPRAM 10 MG TAB PO SCH (08:49)
[2018-11-26] MEDS: POLYETHYLENE GLYCOL 17 GM PACKET PO SCH (08:50)
[2018-11-26] MEDS: ANASTROZOLE 1 MG TAB PO SCH (08:51)
[2018-11-26] MEDS: oxyCODONE (CR) 20 MG TAB [oxyCONTIN] PO SCH ×2 (08:59→21:21)
--- NOTE | 2018-11-26 10:39 | CONS ---
Consultation Date/Type/Reason Admit Date/Time October 21, 2018 at 17:39 Initial Consult Date 10/21/18 Type of Consult Cardiology Requesting Provider: RUSS JEROME MD Date/Time of Note DATE: 11/26/18 TIME: 10:38 24 HR Interval Summary Free Text/Dictation VS stable Exam/Review of Systems Vital Signs Vitals Vital Signs Date Temp Pulse Resp B/P (MAP) Pulse Ox O2 O2 Flow FiO2 Time Delivery Rate 11/26/18 97.8 80 18 104/64 94 Room Air 07:22 (77) 11/25/18 21 19:26 Intake and Output 11/25/18 11/25/18 11/26/18 1515:00 23:00 07:00 IntakeIntake Total 860 ml 500 ml BalanceBalance 860 ml 500 ml Labs Result Diagram: 11/25/18 0503 11/25/18 0503 Medications Medications Current Medications Morphine Sulfate (morphine) 2 mg Q4H PRN IV SEVERE PAIN LEVEL 7-10 Last administered on 11/24/18at 05:31; Admin Dose 2 MG; Start 10/22/18 at 01:30 Phenol (Cepastat Lozenge) 1 lozenge Q1H PRN MT sore throat Last administered on 10/31/18at 18:34; Admin Dose 1 LOZENGE; Start 10/27/18 at 21:30 Budesonide (Pulmicort (Neb)) 0.5 mg BID RESP THERAPY HHN Last administered on 11/25/18at 19:26; Admin Dose 0.5 MG; Start 10/30/18 at 09:00 Metolazone (Zaroxolyn) 2.5 mg BID@0530,1730 PO Last administered on 11/26/18at 06:21; Admin Dose 2.5 MG; Start 11/01/18 at 05:30 Enoxaparin Sodium (Lovenox) 40 mg DAILY SC Last administered on 11/23/18 09:02; Admin Dose 40 MG; Start 11/02/18 at 09:00; Status Hold Ibuprofen (Motrin) 400 mg Q6H PRN PO MILD PAIN(1-3) OR TEMP>38C Last administered on 11/24/18at 08:55; Admin Dose 400 MG; Start 11/07/18 at 12:20 Potassium Chloride (Klor-Con 20) 20 meq BID PO Last administered on 11/26/18 08:49; Admin Dose 20 MEQ; Start 11/11/18 at 09:00 Ondansetron HCl (Zofran Inj) 4 mg Q6H PRN IV NAUSEA AND/OR VOMITING Last administered on 11/19/18 20:21; Admin Dose 4 MG; Start 11/19/18 at 20:30 Bumetanide (Bumex) 0.5 mg DAILY PO Last administered on 11/26/18 08:48; Admin Dose 0.5 MG; Start 11/20/18 at 09:00 Diphenhydramine HCl (Benadryl) 25 mg Q8H PRN PO ITCHING Last administered on 11/26/18 02:44; Admin Dose 25 MG; Start 11/20/18 at 14:00 Bisacodyl (Dulcolax Supp) 10 mg Q8H PRN [place] CONSTIPATION; Start 11/20/18 at 17:30 Guaifenesin/ Codeine Phosphate (Robitussin Ac Liquid Cup) 10 ml Q4H PRN PO COUGH; Start 11/20/18 at 17:30 Magnesium Hydroxide (Milk Of Mag) 30 ml DAILY PRN PO CONSTIPATION Last administered on 11/24/18 08:45; Admin Dose 30 ML; Start 11/20/18 at 17:30 Simethicone (Mylicon) 80 mg Q8H PRN PO INDIGESTION; Start 11/20/18 at 23:30 Oxycodone HCl (Oxycontin) 20 mg Q12 PO Last administered on 11/26/18 08:59; Admin Dose 20 MG; Start 11/24/18 at 21:00; Stop 11/30/18 at 20:59 Escitalopram Oxalate (Lexapro) 10 mg DAILY PO Last administered on 11/26/18 08:49; Admin Dose 10 MG; Start 11/24/18 at 19:00 Anastrozole (Arimidex) 1 mg DAILY PO Last administered on 11/26/18 08:51; Admin Dose 1 MG; Start 11/25/18 at 10:30 Carvedilol (Coreg) 3.125 mg BID PO Last administered on 11/26/18 08:50; Admin Dose 3.125 MG; Start 11/25/18 at 10:30 Docusate Sodium (Colace) 100 mg BID PO Last administered on 11/26/18 08:49; Admin Dose 100 MG; Start 11/25/18 at 10:30 Loratadine (Claritin) 10 mg DAILY PO Last administered on 11/26/18 08:48; Admin Dose 10 MG; Start 11/25/18 at 10:30 Pantoprazole (Protonix Tab) 40 mg AC BREAKFAST PO Last administered on 11/26/18 06:21; Admin Dose 40 MG; Start 11/25/18 at 10:30 Polyethylene Glycol (Miralax) 17 gm DAILY PO Last administered on 11/26/18 08:50; Admin Dose 17 GM; Start 11/25/18 at 10:30 Spironolactone (Aldactone) 50 mg DAILY PO Last administered on 11/26/18 08:49; Admin Dose 50 MG; Start 11/25/18 at 10:30 EMILY NELSON MD Nov 26, 2018 10:39
[2018-11-26 14:27] VITALS: BP 95/69; PULSE 85; RESP 20
[2018-11-26 20:02] VITALS: BP 104/63; PULSE 83; RESP 17
--- NOTE | 2018-11-26 21:55 | PN ---
Date/Time of Note Date/Time of Note DATE: 11/26/18 TIME: 21:50 Assessment/Plan VTE Prophylaxis Risk score (from Ns)>0 risk: 6 SCD applied (from Ns): Yes SCD contraindicated: other (6n.) Pharmacological prophylaxis: other (thoracentesis.) Pharm contraindication: bleeding Lines/Catheters IV Catheter Type (from [facility]): Peripheral IV Central line still needed: No Urinary Cath still in place: No Reason Cath still needed: urinary retention Assessment/Plan Hospital Course Rrecurrent thoracentesis from left pleural cavity.Bronchitis got treated slowly. CHF improved but not totally gone. Continue current chemotherapy bronchodilator therapy correction of fluid his electrolytes and follow the algorithm for a total synthesis planning. Assessment/Plan 1. PRIMARY ADENOCARCINOMA of the left breast. MULTIPLE BONY METS, PULMONARY METS;LIVER METS CHEMO ON HOLD; PT HAS A VERY GOOD RESPONSE TO CHEMO AND AI 2. Severe pain in the interscapular and lumbar sacral area most probably metastatic lesion possible femoral fracture. pathologic fracture of T9 with 60% of loss of height. Neurosurgical f/u. 3. Obesity. 4. Weight loss 60 pounds during the last 2 years by diet 5. PMS. 6. Myopia. 7. Anemia chronic disease with a drop of her hematocrit to 27; Latest results 28. Will recheck tomorrow;Leukopenia.Thrombocytopenia; 8. Anxiety disorder. Claustrophobia. Increase Ativan to 1 mg every 8 as needed at Lexapro 10 mg daily. 9. Posttraumatic stress disorder. 10. Pain in the left forearm with a history of fracture of ulna and radius. 11. Tachycardia-resolved 12. Hypoxemia at night marginal improved after 2 L of nasal cannula oxygen. 13. Deconditioning 14. 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 MRI: 09/28/18:diffuse osseous metastatic disease with multiple pathologic compression fractures at least involving the T4, T5, T7, T9 and T11 levels. There is likely mild cortical breakthrough at several levels resulting in mild central canal narrowing. No gross evidence of cord compression is seen.. 15. Pain syndrome. Today the most painful zone is in the right hip area. 16. Hyponatremia-corrected; today and hold Aldactone today. 17. Leucopenia-improved. 18. Neutropenia with occasional fever and chills. Last chemotherapy 5 days ago. 19. Hypoalbuminemia. 20.Right sided cp after catheter insertion and correction less discomfort. 21. Decreased edema both lower extremities with agioetvemij-rkyzyvyri-Xwslchbi with Pleural and Pericardial effusion. 22. pain syndrome 23.bilateral pleural effusions ; s/p recurrent left thoracentesis Reaccumulat ion of the pleural fluid. 24. Systolic over diastolic congestive heart failure with a right more than left lower extremity swelling with no DVT in latest venous Doppler. 25. Swelling of the left forearm-persist. Cellulitis of the left forearm with decreased edema anteriorly.-Today it is less edematous 26. Pathologic fracture of the right hip;s/p hemiarthroplasty of right hip . 27. Dizziness 28. Chills. 29. Memory impairment. 30. Upper respiratory infection pharyngitis with dry cough. 31. Decreased voice with wheezing. 32. Headaches 33. Hypokalemia- reoccured. Result Diagram: 11/25/18 0503 11/25/18 0503 Subjective 24 Hr Interval Summary Free Text/Dictation pain and unstble gate. Constitutional: improved, poor po; No no complaints, No chills, No diaphoresis, No disoriented, No febrile, No requiring IVF, No requiring O2, No other Eyes: No no complaints, No pain, No discharge, No redness, No visual change, No other ENT: congestion, dysphagia; No no complaints, No bleeding, No pain, No discharge, No sore throat, No other Respiratory: cough, pleuritic pain, shortness of breath Cardiovascular: chest pain, edema; No no complaints, No lightheadedness, No orthopenea, No palpitations, No paroxysmal nocturnal dyspnea, No other Gastrointestinal: No no complaints, No pain, No blood, No constipation, No decreased appetite, No diarrhea, No flatus, No nausea, No passing stool, No vomiting, No other Genitourinary: dysuria; No no complaints, No bleeding, No discharge, No flank pain, No hematuria, No other Musculoskeletal: back pain, bone/joint pain; No no complaints, No neck pain, No restricted range of motion, No swelling, No other Skin: erythema, pruritis; No no complaints, No bruising, No laceration, No rash, No skin lesions, No other Exam/Review of Systems Exam Vitals Vital Signs Date Temp Pulse Resp B/P (MAP) Pulse Ox O2 O2 Flow FiO2 Time Delivery Rate 11/26/18 98.6 83 17 104/63 92 20:02 (77) 11/26/18 Room Air 14:27 11/26/18 2.0 11:54 11/25/18 21 19:26 Intake and Output 11/25/18 11/25/18 11/26/18 1515:00 23:00 07:00 IntakeIntake Total 860 ml 500 ml BalanceBalance 860 ml 500 ml Constitutional: alert, oriented, well developed, distress, frail, obese Psych: nl mood/affect, anxiety; No no complaints, No confusion, No depression, No suicidal, No other Head: normocephalic, atraumatic; No lacerations, No hematomas, No other Eyes: EOMI, nl lids, PERRL; No nl conjunctiva, No nl sclera, No icteric, No fundi, disc, No other ENMT: nl nasal mucosa & septum; No nl external ears & nose, No nl lips & teeth, No mucosa pink and moist, No intubated, No tympanic membranes, No other Neck: No supple, No non-tender, No jvd, No bruits, No masses, No thyromegaly, No nuchal rigidity, No other Respiratory: congested cough, crackles/rales, diminished breath sounds; No clear to auscultation, No normal air movement, No intercostal retraction, No labored breathing, No respirations, No tactile fremitus, No wheezing, No other Cardiovascular: nl pulses, jugular venous distention (JVD), systolic murmur; No regular rate and rhythm, No bruits, No diastolic murmur, No edema, No gallop, No irregular rhythm, No murmurs/extra sounds, No rub, No S3, No S4, No other Gastrointestinal: soft, bowel sounds, distended; No nl liver, spleen, No non-tender, No ascites, No firm, No hepatomegaly, No mass, No rebound or guarding, No splenomegaly, No surgical scars, No tender, No other Genitourinary - Female: No nl adnexae, No nl external genitalia, No CMT, No CVA tenderness, No uterus, No other Musculoskeletal: joint tenderness, muscle tone, muscle weakness; No nl extremities to inspection, No nl gait and stance, No range of motion, No spine non-tender, No swelling, No other Extremities: edema; No normal pulses, No calf tenderness, No cyanosis, No clubbing, No pitting pedal edema, No palpable cord, No tenderness, No other Neurological: 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 SERVICE REPRESENTATIVE 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, nl mental status, nl speech Skin: nl turgor; No rash or lesions, No diaphoresis, No ecchymosis, No laceration, No puncture, No other Medications Medication Current Medications Morphine Sulfate (morphine) 2 mg Q4H PRN IV SEVERE PAIN LEVEL 7-10 Last administered on 11/24/18 05:31; Admin Dose 2 MG; Start 10/22/18 at 01:30 Phenol (Cepastat Lozenge) 1 lozenge Q1H PRN MT sore throat Last administered on 10/31/18 18:34; Admin Dose 1 LOZENGE; Start 10/27/18 at 21:30 Budesonide (Pulmicort (Neb)) 0.5 mg BID RESP THERAPY HHN Last administered on 11/25/18 19:26; Admin Dose 0.5 MG; Start 10/30/18 at 09:00 Metolazone (Zaroxolyn) 2.5 mg BID@7230,8870 PO Last administered on 11/26/18 18:03; Admin Dose 2.5 MG; Start 11/01/18 at 05:30 Enoxaparin Sodium (Lovenox) 40 mg DAILY SC Last administered on 11/23/18 09:02; Admin Dose 40 MG; Start 11/02/18 at 09:00; Status Hold Ibuprofen (Motrin) 400 mg Q6H PRN PO MILD PAIN(1-3) OR TEMP>38C Last administered on 11/24/18 08:55; Admin Dose 400 MG; Start 11/07/18 at 12:20 Potassium Chloride (Klor-Con 20) 20 meq BID PO Last administered on 11/26/18 21:22; Admin Dose 20 MEQ; Start 11/11/18 at 09:00 Ondansetron HCl (Zofran Inj) 4 mg Q6H PRN IV NAUSEA AND/OR VOMITING Last administered on 11/19/18 20:21; Admin Dose 4 MG; Start 11/19/18 at 20:30 Bumetanide (Bumex) 0.5 mg DAILY PO Last administered on 11/26/18 08:48; Admin Dose 0.5 MG; Start 11/20/18 at 09:00 Diphenhydramine HCl (Benadryl) 25 mg Q8H PRN PO ITCHING Last administered on 11/26/18 13:21; Admin Dose 25 MG; Start 11/20/18 at 14:00 Bisacodyl (Dulcolax Supp) 10 mg Q8H PRN [place] CONSTIPATION; Start 11/20/18 at 17:30 Guaifenesin/ Codeine Phosphate (Robitussin Ac Liquid Cup) 10 ml Q4H PRN PO COUGH; Start 11/20/18 at 17:30 Magnesium Hydroxide (Milk Of Mag) 30 ml DAILY PRN PO CONSTIPATION Last administered on 11/24/18 08:45; Admin Dose 30 ML; Start 11/20/18 at 17:30 Simethicone (Mylicon) 80 mg Q8H PRN PO INDIGESTION; Start 11/20/18 at 23:30 Oxycodone HCl (Oxycontin) 20 mg Q12 PO Last administered on 11/26/18 21:21; Admin Dose 20 MG; Start 11/24/18 at 21:00; Stop 11/30/18 at 20:59 Escitalopram Oxalate (Lexapro) 10 mg DAILY PO Last administered on 11/26/18 08:49; Admin Dose 10 MG; Start 11/24/18 at 19:00 Anastrozole (Arimidex) 1 mg DAILY PO Last administered on 11/26/18 08:51; Admin Dose 1 MG; Start 11/25/18 at 10:30 Carvedilol (Coreg) 3.125 mg BID PO Last administered on 11/26/18 21:24; Admin Dose 3.125 MG; Start 11/25/18 at 10:30 Docusate Sodium (Colace) 100 mg BID PO Last administered on 11/26/18 21:26; Admin Dose 100 MG; Start 11/25/18 at 10:30 Loratadine (Claritin) 10 mg DAILY PO Last administered on 11/26/18 08:48; Admin Dose 10 MG; Start 11/25/18 at 10:30 Pantoprazole (Protonix Tab) 40 mg AC BREAKFAST PO Last administered on 11/26/18 06:21; Admin Dose 40 MG; Start 11/25/18 at 10:30 Polyethylene Glycol (Miralax) 17 gm DAILY PO Last administered on 11/26/18at 08:50; Admin Dose 17 GM; Start 11/25/18 at 10:30 Spironolactone (Aldactone) 50 mg DAILY PO Last administered on 11/26/18at 08:49; Admin Dose 50 MG; Start 11/25/18 at 10:30 RUSS JEROME MD Nov 26, 2018 21:55
[2018-11-27] MEDS: DIPHENHYDRAMINE 25 MG CAP PO PRN ×4 (00:08→22:42)
[2018-11-27] MEDS: PANTOPRAZOLE (EC) 40 MG TAB PO SCH (05:36)
[2018-11-27] MEDS: METOLAZONE 2.5 MG TAB PO SCH ×2 (05:36→18:13)
[2018-11-27 07:31] VITALS: BP 104/64; PULSE 80; RESP 18
--- NOTE | 2018-11-27 08:36 | PN ---
DATE: 11/27/2018 SUBJECTIVE: The patient is stable, no events overnight. OBJECTIVE: VITAL SIGNS: Blood pressure is 104/64, pulse 80, respirations 18, temperature 98.0. HEENT: Head is normocephalic. NECK: Supple. HEART: Regular rate. LUNGS: Show diminished breath sounds at the base. ABDOMEN: Soft, nontender to palpation without rebound or guarding. EXTREMITIES: Negative for clubbing, cyanosis. Positive edema, right greater than left lower extremi ty. DERMATOLOGIC: No rashes. MUSCULOSKELETAL: No joint effusion. NEUROLOGIC: No change in exam. MEDICATIONS: Reviewed. LABORATORY DATA: Reviewed. ASSESSMENT AND PLAN: 1. Volume overload, improving. The patient is near euvolemic status. Continue current diuretic reg imen. 2. Hypokalemia, resolved. 3. Metabolic alkalemia, improved. 4. Nonoliguric acute kidney injury. Etiology is secondary to hemodynamics and diuretic therapy. Th e patient's renal function is improved after adjusting diuretics. Continue to monitor. 5. Mineral bone disorder. Monitor calcium and phosphorus levels. 6. Hip fracture, status post arthroplasty. 7. Breast cancer with metastasis. 8. Left radial ulnar fracture. Continue to monitor. The patient is currently in a brace. 9. Chronic pain syndrome. 10. Status post bronchitis. We will follow the patient as needed. Dictated By: ANDRÉS TATUM DO NR/NTS Conf#: [id number] DID#: [id number] CC: RUSS JEROME MD; ALMA CORDOVA MD;*EndCC*
[2018-11-27] MEDS: BUDESONIDE (NEB) 0.5MG/2ML AMP HHN SCH ×2 (09:00→20:00)
[2018-11-27] MEDS: POLYETHYLENE GLYCOL 17 GM PACKET PO SCH (09:38)
[2018-11-27] MEDS: BUMETANIDE 0.5 MG TAB PO SCH (09:39)
[2018-11-27] MEDS: SPIRONOLACTONE 50 MG TAB PO SCH (09:39)
[2018-11-27] MEDS: POTASSIUM CHLORIDE (SR) 20 MEQ TAB PO SCH ×2 (09:39→20:38)
[2018-11-27] MEDS: DOCUSATE SODIUM 100 MG CAP PO SCH ×2 (09:39→20:38)
[2018-11-27] MEDS: ESCITALOPRAM 10 MG TAB PO SCH (09:39)
[2018-11-27] MEDS: LORATADINE 10 MG TAB PO SCH (09:39)
[2018-11-27] MEDS: ANASTROZOLE 1 MG TAB PO SCH (09:41)
[2018-11-27] MEDS: oxyCODONE (CR) 20 MG TAB [oxyCONTIN] PO SCH ×2 (09:44→20:38)
--- NOTE | 2018-11-27 12:52 | CONS ---
Assessment/Plan Assessment/Plan Hospital Course (Demo Recall) IMPRESSION: 1. Congestive heart failure exacerbation would be diastolic, acute on chronic by most recent echo.-now s/p echo this admit with EF 60/small effusion 2. Abnormal electrocardiogram with low voltage, rule out pericardial effusion. 3. Hypertension-currently borderline hypotension 4. Metastatic breast carcinoma. 5. History of pathologic fractures of the leg, status post open reduction and internal fixation. 6. Anemia. 7. Increased BNP consistent with patient's congestive heart failure. 8. Pericardial effusion-small by echo 9. Edema-LE venous RAMÍREZ neg for DVT 10. Hypokalemia 11.Wrist fracture acute by films 11/20-conservative management at this time 12. Pleural effusion s/p thoracentesis today Recc: -On med-surg -Continued on metolazone and low dose PO bumex and on aldactone with overall reasonable volume status and resolution of much of LLE edema but still ongoing asymetric LE edema in leg with fractures -renal and onc following and now endocrine for bone density -continue loow dose coreg -follow K clsoely which is reasonable today on aldactone -currently conservative management of wrist fracture -follow temperature closely Consultation Date/Type/Reason Admit Date/Time October 21, 2018 at 17:39 Initial Consult Date 10/21/18 Type of Consult Cardiology Reason for Consultation CHF Requesting Provider: RUSS JEROME MD Date/Time of Note DATE: 11/27/18 TIME: 12:50 Exam/Review of Systems Vital Signs Vitals Vital Signs Date Temp Pulse Resp B/P (MAP) Pulse Ox O2 O2 Flow FiO2 Time Delivery Rate 11/27/18 2.0 08:35 11/27/18 98.0 80 18 104/64 91 07:31 (77) 11/26/18 Room Air 14:27 11/25/18 21 19:26 Intake and Output 11/26/18 11/26/18 11/27/18 1515:00 23:00 07:00 IntakeIntake Total 360 ml 560 ml 200 ml BalanceBalance 360 ml 560 ml 200 ml Exam Exam Review of Systems: CONSTITUTIONAL: No fevers, chills. PULMONARY: No sob CARDIOVASCULAR: No chest pain/palpitations GASTROINTESTINAL: No nausea/vomiting. GENITOURINARY: No hematuria/dysuria. MUSCULOSKELETAL: No myagias/arthalgias. PSYCHIATRIC: The patient denies depression. NEUROLOGIC: No weakness Constitutional: alert Psych: no complaints Head: normocephalic ENMT: mucosa pink and moist Neck: supple, jvd (9 cm water) Respiratory: diminished breath sounds (at bases/B) Cardiovascular: regular rate and rhythm Gastrointestinal: soft, non-tender Musculoskeletal: muscle tone (normal) Extremities: pitting pedal edema (R>>L) Neurological: other (no focal deficits) Labs Result Diagram: 11/25/18 0503 11/25/18 0503 Medications Medications Current Medications Morphine Sulfate (morphine) 2 mg Q4H PRN IV SEVERE PAIN LEVEL 7-10 Last administered on 11/24/18 05:31; Admin Dose 2 MG; Start 10/22/18 at 01:30 Phenol (Cepastat Lozenge) 1 lozenge Q1H PRN MT sore throat Last administered on 10/31/18 18:34; Admin Dose 1 LOZENGE; Start 10/27/18 at 21:30 Budesonide (Pulmicort (Neb)) 0.5 mg BID RESP THERAPY HHN Last administered on 11/25/18 19:26; Admin Dose 0.5 MG; Start 10/30/18 at 09:00 Metolazone (Zaroxolyn) 2.5 mg BID@0530,1730 PO Last administered on 11/27/18 05:36; Admin Dose 2.5 MG; Start 11/01/18 at 05:30 Enoxaparin Sodium (Lovenox) 40 mg DAILY SC Last administered on 11/23/18 09:02; Admin Dose 40 MG; Start 11/02/18 at 09:00; Status Hold Ibuprofen (Motrin) 400 mg Q6H PRN PO MILD PAIN(1-3) OR TEMP>38C Last administered on 11/24/18 08:55; Admin Dose 400 MG; Start 11/07/18 at 12:20 Potassium Chloride (Klor-Con 20) 20 meq BID PO Last administered on 11/27/18 09:39; Admin Dose 20 MEQ; Start 11/11/18 at 09:00 Ondansetron HCl (Zofran Inj) 4 mg Q6H PRN IV NAUSEA AND/OR VOMITING Last administered on 11/19/18 20:21; Admin Dose 4 MG; Start 11/19/18 at 20:30 Bumetanide (Bumex) 0.5 mg DAILY PO Last administered on 11/27/18 09:39; Admin Dose 0.5 MG; Start 11/20/18 at 09:00 Diphenhydramine HCl (Benadryl) 25 mg Q8H PRN PO ITCHING Last administered on 11/27/18 12:29; Admin Dose 25 MG; Start 11/20/18 at 14:00 Bisacodyl (Dulcolax Supp) 10 mg Q8H PRN [place] CONSTIPATION; Start 11/20/18 at 17:30 Guaifenesin/ Codeine Phosphate (Robitussin Ac Liquid Cup) 10 ml Q4H PRN PO COUGH; Start 11/20/18 at 17:30 Magnesium Hydroxide (Milk Of Mag) 30 ml DAILY PRN PO CONSTIPATION Last administered on 11/24/18 08:45; Admin Dose 30 ML; Start 11/20/18 at 17:30 Simethicone (Mylicon) 80 mg Q8H PRN PO INDIGESTION; Start 11/20/18 at 23:30 Oxycodone HCl (Oxycontin) 20 mg Q12 PO Last administered on 11/27/18 09:44; Admin Dose 20 MG; Start 11/24/18 at 21:00; Stop 11/30/18 at 20:59 Escitalopram Oxalate (Lexapro) 10 mg DAILY PO Last administered on 11/27/18 09:39; Admin Dose 10 MG; Start 11/24/18 at 19:00 Anastrozole (Arimidex) 1 mg DAILY PO Last administered on 11/27/18 09:41; Admin Dose 1 MG; Start 11/25/18 at 10:30 Carvedilol (Coreg) 3.125 mg BID PO Last administered on 11/27/18 09:40; Admin Dose 3.125 MG; Start 11/25/18 at 10:30 Docusate Sodium (Colace) 100 mg BID PO Last administered on 11/27/18 09:39; Admin Dose 100 MG; Start 11/25/18 at 10:30 Loratadine (Claritin) 10 mg DAILY PO Last administered on 11/27/18 09:39; Admin Dose 10 MG; Start 11/25/18 at 10:30 Pantoprazole (Protonix Tab) 40 mg AC BREAKFAST PO Last administered on 11/27/18 05:36; Admin Dose 40 MG; Start 11/25/18 at 10:30 Polyethylene Glycol (Miralax) 17 gm DAILY PO Last administered on 11/27/18 09:38; Admin Dose 17 GM; Start 11/25/18 at 10:30 Spironolactone (Aldactone) 50 mg DAILY PO Last administered on 11/27/18 09:39; Admin Dose 50 MG; Start 11/25/18 at 10:30 KAMILA TERESA Nov 27, 2018 12:52
[2018-11-27 16:08] VITALS: BP 102/62; PULSE 85; RESP 20
[2018-11-27 20:00] VITALS: BP 112/69; PULSE 92; RESP 16
--- NOTE | 2018-11-27 20:40 | PN ---
Date/Time of Note Date/Time of Note DATE: 11/27/18 TIME: 20:34 Assessment/Plan VTE Prophylaxis Risk score (from Ns)>0 risk: 9 SCD applied (from Ns): Yes SCD contraindicated: other Pharmacological prophylaxis: LMWH Lines/Catheters IV Catheter Type (from [facility]): Peripheral IV Central line still needed: No Urinary Cath still in place: No Reason Cath still needed: urinary retention Assessment/Plan Hospital Course Rrecurrent thoracentesis from left pleural cavity.Bronchitis got treated slowly. CHF improved but not totally gone. Continue current chemotherapy bronchodilator therapy correction of fluid his electrolytes and follow the algorithm for a total synthesis planning. Assessment/Plan 1. PRIMARY ADENOCARCINOMA of the left breast. MULTIPLE BONY METS, PULMONARY METS;LIVER METS CHEMO ON HOLD; PT HAS A VERY GOOD RESPONSE TO CHEMO AND AI 2. Severe pain in the interscapular and lumbar sacral area most probably metastatic lesion possible femoral fracture. pathologic fracture of T9 with 60% of loss of height. Neurosurgical f/u. 3. Obesity. 4. Weight loss 60 pounds during the last 2 years by diet 5. PMS. 6. Myopia. 7. Anemia chronic disease with a drop of her hematocrit to 27; Latest results 28. Will recheck tomorrow;Leukopenia.Thrombocytopenia; 8. Anxiety disorder. Claustrophobia. Increase Ativan to 1 mg every 8 as needed at Lexapro 10 mg daily. 9. Posttraumatic stress disorder. 10. Pain in the left forearm with a history of fracture of ulna and radius. 11. Tachycardia-resolved 12. Hypoxemia at night marginal improved after 2 L of nasal cannula oxygen. 13. Deconditioning 14. 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 MRI: 09/28/18:diffuse osseous metastatic disease with multiple pathologic compression fractures at least involving the T4, T5, T7, T9 and T11 levels. There is likely mild cortical breakthrough at several levels resulting in mild central canal narrowing. No gross evidence of cord compression is seen.. 15. Pain syndrome. Today the most painful zone is in the right hip area. 16. Hyponatremia-corrected; today and hold Aldactone today. 17. Leucopenia-improved. 18. Neutropenia with occasional fever and chills. Last chemotherapy 5 days ago. 19. Hypoalbuminemia. 20.Right sided cp after catheter insertion and correction less discomfort. 21. Decreased edema both lower extremities with [id number]-[id number] with Pleural and Pericardial effusion. 22. pain syndrome 23.bilateral pleural effusions ; s/p recurrent left thoracentesis Reaccumulation of the pleural fluid. 24. Systolic over diastolic congestive heart failure with a right more than left lower extremity swelling with no DVT in latest venous Doppler. 25. Swelling of the left forearm-persist. Cellulitis of the left forearm with decreased edema anteriorly.-Today it is less edematous 26. Pathologic fracture of the right hip;s/p hemiarthroplasty of right hip . 27. Dizziness 28. Chills. 29. Memory impairment. 30. Upper respiratory infection pharyngitis with dry cough. 31. Decreased voice with wheezing. 32. Headaches 33. Hypokalemia- reoccured. Result Diagram: 11/25/18 05011/25/18 050 Subjective 24 Hr Interval Summary Free Text/Dictation Pain persists. Constitutional: poor po; No no complaints, No improved, No chills, No diaphoresis, No disoriented, No febrile, No requiring IVF, No requiring O2, No other Eyes: No no complaints, No pain, No discharge, No redness, No visual change, No other ENT: congestion; No no complaints, No bleeding, No pain, No discharge, No dysphagia, No sore throat, No other Respiratory: cough, pleuritic pain, shortness of breath; No no complaints, No pain, No sputum, No wheezing, No other Cardiovascular: edema Gastrointestinal: decreased appetite, nausea; No no complaints, No pain, No blood, No constipation, No diarrhea, No flatus, No passing stool, No vomiting, No other Genitourinary: dysuria; No no complaints, No bleeding, No discharge, No flank pain, No hematuria, No other Musculoskeletal: back pain, bone/joint pain, neck pain; No no complaints, No restricted range of motion, No swelling, No other Skin: No no complaints, No bruising, No erythema, No laceration, No pruritis, No rash, No skin lesions, No other Neurologic: confusion; No no complaints, No dizziness, No focal-weakness, No headache, No syncope, No seizure, No other Endocrine: polyuria; No no complaints, No polydypsia, No dry skin, No temp intolerance, No other Lymphatic: No no complaints, No adenopathy, No tender nodes, No lymphadema, No other Psychological: anxiety; No no complaints, No nl mood/affect, No confusion, No depression, No suicidal, No other Exam/Review of Systems Exam Vitals Vital Signs Date Temp Pulse Resp B/P (MAP) Pulse Ox O2 O2 Flow FiO2 Time Delivery Rate 11/27/18 98.3 85 20 102/62 92 Room Air 16:08 (75) 11/27/18 2.0 08:35 11/25/18 21 19:26 Intake and Output 11/26/18 11/26/18 11/27/18 1515:00 23:00 07:00 IntakeIntake Total 360 ml 560 ml 200 ml BalanceBalance 360 ml 560 ml 200 ml Constitutional: alert, oriented, well developed, distress, frail; No non-verbal, No obese, No other Psych: anxiety, confusion; No no complaints, No nl mood/affect, No depression, No suicidal, No other Head: normocephalic, atraumatic Eyes: EOMI, nl lids, PERRL; No nl conjunctiva, No nl sclera, No icteric, No fundi, disc, No other ENMT: nl lips & teeth, nl nasal mucosa & septum; No nl external ears & nose, No mucosa pink and moist, No intubated, No tympanic membranes, No other Neck: non-tender, bruits, masses; No supple, No jvd, No thyromegaly, No nuchal rigidity, No other Respiratory: congested cough, crackles/rales, diminished breath sounds; No clear to auscultation, No normal air movement, No intercostal retraction, No labored breathing, No respirations, No tactile fremitus, No wheezing, No other Cardiovascular: edema, systolic murmur; No regular rate and rhythm, No nl pulses, No bruits, No diastolic murmur, No gallop, No irregular rhythm, No jugular venous distention (JVD), No murmurs/extra sounds, No rub, No S3, No S4, No other Gastrointestinal: nl liver, spleen, splenomegaly; No soft, No non-tender, No ascites, No bowel sounds, No distended, No firm, No hepatomegaly, No mass, No rebound or guarding, No surgical scars, No tender, No other Musculoskeletal: joint tenderness, muscle tone, muscle weakness, range of motion, other (Tender left wrist and right hip area mainly.); No nl extremities to inspection, No nl gait and stance, No spine non-tender, No swelling Extremities: No normal pulses, No calf tenderness, No cyanosis, No clubbing, No edema, No pitting pedal edema, No palpable cord, No tenderness, No other Neurological: COLOR RECEIVER 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, nl mental status; No nl speech, No nl strength, No confused, No DTR's symmetric, No focal weakness, No lethargic, No numbness, No reflexes, No unresponsive, No other Medications Medication Current Medications Morphine Sulfate (morphine) 2 mg Q4H PRN IV SEVERE PAIN LEVEL 7-10 Last administered on 11/24/18 05:31; Admin Dose 2 MG; Start 10/22/18 at 01:30 Phenol (Cepastat Lozenge) 1 lozenge Q1H PRN [place] sore throat Last administered on 10/31/18 18:34; Admin Dose 1 LOZENGE; Start 10/27/18 at 21:30 Budesonide (Pulmicort (Neb)) 0.5 mg BID RESP THERAPY HHN Last administered on 11/25/18 19:26; Admin Dose 0.5 MG; Start 10/30/18 at 09:00 Metolazone (Zaroxolyn) 2.5 mg BID@0530,1730 PO Last administered on 11/27/18 18:13; Admin Dose 2.5 MG; Start 11/01/18 at 05:30 Enoxaparin Sodium (Lovenox) 40 mg DAILY SC Last administered on 11/23/18 09:02; Admin Dose 40 MG; Start 11/02/18 at 09:00; Status Hold Ibuprofen (Motrin) 400 mg Q6H PRN PO MILD PAIN(1-3) OR TEMP>38C Last administered on 11/24/18 08:55; Admin Dose 400 MG; Start 11/07/18 at 12:20 Potassium Chloride (Klor-Con 20) 20 meq BID PO Last administered on 11/27/18 09:39; Admin Dose 20 MEQ; Start 11/11/18 at 09:00 Ondansetron HCl (Zofran Inj) 4 mg Q6H PRN IV NAUSEA AND/OR VOMITING Last administered on 11/19/18 20:21; Admin Dose 4 MG; Start 11/19/18 at 20:30 Bumetanide (Bumex) 0.5 mg DAILY PO Last administered on 11/27/18 09:39; Admin Dose 0.5 MG; Start 11/20/18 at 09:00 Diphenhydramine HCl (Benadryl) 25 mg Q8H PRN PO ITCHING Last administered on 11/27/18 12:29; Admin Dose 25 MG; Start 11/20/18 at 14:00 Bisacodyl (Dulcolax Supp) 10 mg Q8H PRN [place] CONSTIPATION; Start 11/20/18 at 17:30 Guaifenesin/ Codeine Phosphate (Robitussin Ac Liquid Cup) 10 ml Q4H PRN PO COUGH; Start 11/20/18 at 17:30 Magnesium Hydroxide (Milk Of Mag) 30 ml DAILY PRN PO CONSTIPATION Last administered on 11/24/18 08:45; Admin Dose 30 ML; Start 11/20/18 at 17:30 Simethicone (Mylicon) 80 mg Q8H PRN PO INDIGESTION; Start 11/20/18 at 23:30 Oxycodone HCl (Oxycontin) 20 mg Q12 PO Last administered on 11/27/18 09:44; Admin Dose 20 MG; Start 11/24/18 at 21:00; Stop 11/30/18 at 20:59 Escitalopram Oxalate (Lexapro) 10 mg DAILY PO Last administered on 11/27/18 09:39; Admin Dose 10 MG; Start 11/24/18 at 19:00 Anastrozole (Arimidex) 1 mg DAILY PO Last administered on 11/27/18 09:41; Admin Dose 1 MG; Start 11/25/18 at 10:30 Carvedilol (Coreg) 3.125 mg BID PO Last administered on 11/27/18 09:40; Admin Dose 3.125 MG; Start 11/25/18 at 10:30 Docusate Sodium (Colace) 100 mg BID PO Last administered on 11/27/18 09:39; Admin Dose 100 MG; Start 11/25/18 at 10:30 Loratadine (Claritin) 10 mg DAILY PO Last administered on 11/27/18 09:39; Admin Dose 10 MG; Start 11/25/18 at 10:30 Pantoprazole (Protonix Tab) 40 mg AC BREAKFAST PO Last administered on 11/27/18 05:36; Admin Dose 40 MG; Start 11/25/18 at 10:30 Polyethylene Glycol (Miralax) 17 gm DAILY PO Last administered on 11/27/18 09:38; Admin Dose 17 GM; Start 11/25/18 at 10:30 Spironolactone (Aldactone) 50 mg DAILY PO Last administered on 11/27/18 09:39; Admin Dose 50 MG; Start 11/25/18 at 10:30 RUSS JEROME MD Nov 27, 2018 20:40
[2018-11-27] MEDS: DICLOFENAC SODIUM 1% GEL 100 GM TUBE TP SCH (22:00)
[2018-11-28] MEDS: METOLAZONE 2.5 MG TAB PO SCH ×2 (05:55→18:19)
[2018-11-28] MEDS: PANTOPRAZOLE (EC) 40 MG TAB PO SCH (05:55)
[2018-11-28 08:02] VITALS: BP 101/68; PULSE 77; RESP 19
[2018-11-28] MEDS: BUDESONIDE (NEB) 0.5MG/2ML AMP HHN SCH ×2 (09:00→20:00)
[2018-11-28] MEDS: DICLOFENAC SODIUM 1% GEL 100 GM TUBE TP SCH ×4 (09:00→21:05)
[2018-11-28] MEDS: DOCUSATE SODIUM 100 MG CAP PO SCH ×2 (09:59→21:05)
[2018-11-28] MEDS: BUMETANIDE 0.5 MG TAB PO SCH (09:59)
[2018-11-28] MEDS: LORATADINE 10 MG TAB PO SCH (09:59)
[2018-11-28] MEDS: POTASSIUM CHLORIDE (SR) 20 MEQ TAB PO SCH ×2 (09:59→21:05)
[2018-11-28] MEDS: SPIRONOLACTONE 50 MG TAB PO SCH (09:59)
[2018-11-28] MEDS: ESCITALOPRAM 10 MG TAB PO SCH (09:59)
[2018-11-28] MEDS: POLYETHYLENE GLYCOL 17 GM PACKET PO SCH (10:00)
[2018-11-28] MEDS: ANASTROZOLE 1 MG TAB PO SCH (10:01)
[2018-11-28] MEDS: oxyCODONE (CR) 20 MG TAB [oxyCONTIN] PO SCH ×2 (10:14→21:08)
--- NOTE | 2018-11-28 11:30 | PN ---
Date/Time of Note Date/Time of Note DATE: 11/28/18 TIME: 11:25 Assessment/Plan VTE Prophylaxis Risk score (from Ns)>0 risk: 8 SCD applied (from Ns): No SCD contraindicated: other (on.) Pharmacological prophylaxis: other (no.) Pharm contraindication: patient refusal Lines/Catheters IV [facility] Type (from [facility]): Peripheral IV Central line still needed: Yes Urinary Cath still in place: No Reason Cath still needed: urinary retention Assessment/Plan Hospital Course Rrecurrent thoracentesis from left pleural cavity.Bronchitis got treated slowly. CHF improved but not totally gone. Continue current chemotherapy bronchodilator therapy correction of fluid his electrolytes and follow the algorithm for a total synthesis planning. Assessment/Plan 1. PRIMARY ADENOCARCINOMA of the left breast. MULTIPLE BONY METS, PULMONARY METS;LIVER METS CHEMO ON HOLD; PT HAS A VERY GOOD RESPONSE TO CHEMO AND AI 2. Severe pain in the interscapular and lumbar sacral area most probably metastatic lesion possible femoral fracture. pathologic fracture of T9 with 60% of loss of height. Neurosurgical f/u. 3. Obesity. 4. Weight loss 60 pounds during the last 2 years by diet 5. PMS. 6. Myopia. 7. Anemia chronic disease with a drop of her hematocrit to 27; Latest results 28. Will recheck tomorrow;Leukopenia.Thrombocytopenia; 8. Anxiety disorder. Claustrophobia. Increase Ativan to 1 mg every 8 as needed at Lexapro 10 mg daily. 9. Posttraumatic stress disorder. 10. Pain in the left forearm with a history of fracture of ulna and radius. 11. Tachycardia-resolved 12. Hypoxemia at night marginal improved after 2 L of nasal cannula oxygen. 13. Deconditioning 14. 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 MRI: 09/28/18:diffuse osseous metastatic disease with multiple pathologic compression fractures at least involving the T4, T5, T7, T9 and T11 levels. There is likely mild cortical breakthrough at several levels resulting in mild central canal narrowing. No gross evidence of cord compression is seen.. 15. Pain syndrome. Today the most painful zone is in the right hip area. 16. Hyponatremia-corrected; today and hold Aldactone today. 17. Leucopenia-improved. 18. Neutropenia with occasional fever and chills. Last chemotherapy 5 days ago. 19. Hypoalbuminemia. 20.Right sided cp after catheter insertion and correction less discomfort. 21. Decreased edema both lower extremities with uybxglckrfz-lpxiexmus-Fpimdbgm with Pleural and Pericardial effusion. 22. pain syndrome 23.bilateral pleural effusions ; s/p recurrent left thoracentesis Reaccumulation of the pleural fluid. 24. Systolic over diastolic congestive heart failure with a right more than left lower extremity swelling with no DVT in latest venous Doppler. 25. Swelling of the left forearm-persist. Cellulitis of the left forearm with decreased edema anteriorly.-Today it is less edematous 26. Pathologic fracture of the right hip;s/p hemiarthroplasty of right hip . 27. Dizziness 28. Chills. 29. Memory impairment. 30. Upper respiratory infection pharyngitis with dry cough. 31. Decreased voice with wheezing. 32. Headaches 33. Hypokalemia- corrected Result Diagram: 11/25/18 05011/25/18502 Subjective 24 Hr Interval Summary Free Text/Dictation Stiffness cramps tightness of the right thigh mainly anterior laterally not improving after right hip surgery. Shortness of breath improved. I am using the left upper extremity with less pain. Constitutional: improved, febrile, poor po, requiring O2; No no complaints, No chills, No diaphoresis, No disoriented, No requiring IVF, No other ENT: No no complaints, No bleeding, No pain, No congestion, No discharge, No dysphagia, No sore throat, No other Respiratory: cough; No no complaints, No pain, No pleuritic pain, No shortness of breath, No sputum, No wheezing, No other Cardiovascular: edema, lightheadedness, orthopenea; No no complaints, No chest pain, No palpitations, No paroxysmal nocturnal dyspnea, No other Gastrointestinal: constipation, flatus; No no complaints, No pain, No blood, No decreased appetite, No diarrhea, No nausea, No passing stool, No vomiting, No other Genitourinary: dysuria; No no complaints, No bleeding, No discharge, No flank pain, No hematuria, No other Musculoskeletal: back pain, bone/joint pain Skin: No no complaints, No bruising, No erythema, No laceration, No pruritis, No rash, No skin lesions, No other Neurologic: dizziness; No no complaints, No confusion, No focal-weakness, No headache, No syncope, No seizure, No other Exam/Review of Systems Exam Vitals Vital Signs Date Temp Pulse Resp B/P (MAP) Pulse Ox O2 O2 Flow FiO2 Time Delivery Rate 11/28/18 98.7 77 19 101/68 92 Room Air 08:02 (79) 11/27/18 2.0 08:35 11/25/18 21 19:26 Intake and Output 11/27/18 11/27/18 11/28/18 1515:00 23:00 07:00 IntakeIntake Total 440 ml 200 ml OutputOutput Total 1 ml BalanceBalance 440 ml 199 ml Constitutional: alert, oriented, well developed, distress, frail Psych: anxiety; No no complaints, No nl mood/affect, No confusion, No depression, No suicidal, No other Head: normocephalic, atraumatic; No lacerations, No hematomas, No other Eyes: EOMI, nl lids; No nl conjunctiva, No nl sclera, No PERRL, No icteric, No fundi, disc, No other ENMT: No nl external ears & nose, No nl lips & teeth, No nl nasal mucosa & septum, No mucosa pink and moist, No intubated, No tympanic membranes, No other Neck: jvd, nuchal rigidity; No supple, No non-tender, No bruits, No masses, No thyromegaly, No other Respiratory: diminished breath sounds; No clear to auscultation, No normal air movement, No congested cough, No crackles/rales, No intercostal retraction, No labored breathing, No respirations, No tactile fremitus, No wheezing, No other Cardiovascular: regular rate and rhythm, nl pulses, edema, systolic murmur; No bruits, No diastolic murmur, No gallop, No irregular rhythm, No jugular venous distention (JVD), No murmurs/extra sounds, No rub, No S3, No S4, No other Gastrointestinal: soft, nl liver, spleen, non-tender Genitourinary - Female: No nl adnexae, No nl external genitalia, No CMT, No CVA tenderness, No uterus, No other Musculoskeletal: joint tenderness, muscle tone, muscle weakness; No nl extremities to inspection, No nl gait and stance, No range of motion, No spine non-tender, No swelling, No other Extremities: No normal pulses, No calf tenderness, No cyanosis, No clubbing, No edema, No pitting pedal edema, No palpable cord, No tenderness, No other Neurological: UNHAIRING INSPECTOR 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, nl mental status; No nl speech, No nl strength, No confused, No DTR's symmetric, No focal weakness, No lethargic, No numbness, No reflexes, No unresponsive, No other Medications Medication Current Medications Morphine Sulfate (morphine) 2 mg Q4H PRN IV SEVERE PAIN LEVEL 7-10 Last administered on 11/24/18 05:31; Admin Dose 2 MG; Start 10/22/18 at 01:30 Phenol (Cepastat Lozenge) 1 lozenge Q1H PRN [place] sore throat Last administered on 10/31/18 18:34; Admin Dose 1 LOZENGE; Start 10/27/18 at 21:30 Budesonide (Pulmicort (Neb)) 0.5 mg BID RESP THERAPY HHN Last administered on 11/25/18 19:26; Admin Dose 0.5 MG; Start 10/30/18 at 09:00 Metolazone (Zaroxolyn) 2.5 mg BID@0530,1730 PO Last administered on 11/28/18 05:55; Admin Dose 2.5 MG; Start 11/01/18 at 05:30 Enoxaparin Sodium (Lovenox) 40 mg DAILY SC Last administered on 11/23/18 09:02; Admin Dose 40 MG; Start 11/02/18 at 09:00; Status Hold Ibuprofen (Motrin) 400 mg Q6H PRN PO MILD PAIN(1-3) OR TEMP>38C Last administered on 11/24/18 08:55; Admin Dose 400 MG; Start 11/07/18 at 12:20 Potassium Chloride (Klor-Con 20) 20 meq BID PO Last administered on 11/28/18 09:59; Admin Dose 20 MEQ; Start 11/11/18 at 09:00 Ondansetron HCl (Zofran Inj) 4 mg Q6H PRN IV NAUSEA AND/OR VOMITING Last administered on 11/19/18 20:21; Admin Dose 4 MG; Start 11/19/18 at 20:30 Bumetanide (Bumex) 0.5 mg DAILY PO Last administered on 11/28/18 09:59; Admin Dose 0.5 MG; Start 11/20/18 at 09:00 Diphenhydramine HCl (Benadryl) 25 mg Q8H PRN PO ITCHING Last administered on 11/27/18at 22:42; Admin Dose 25 MG; Start 11/20/18 at 14:00 Bisacodyl (Dulcolax Supp) 10 mg Q8H PRN [place] CONSTIPATION; Start 11/20/18 at 17:30 Guaifenesin/ Codeine Phosphate (Robitussin Ac Liquid Cup) 10 ml Q4H PRN PO COUGH; Start 11/20/18 at 17:30 Magnesium Hydroxide (Milk Of Mag) 30 ml DAILY PRN PO CONSTIPATION Last administered on 11/24/18 08:45; Admin Dose 30 ML; Start 11/20/18 at 17:30 Simethicone (Mylicon) 80 mg Q8H PRN PO INDIGESTION; Start 11/20/18 at 23:30 Oxycodone HCl (Oxycontin) 20 mg Q12 PO Last administered on 11/28/18 10:14; Admin Dose 20 MG; Start 11/24/18 at 21:00; Stop 11/30/18 at 20:59 Escitalopram Oxalate (Lexapro) 10 mg DAILY PO Last administered on 11/28/18 09:59; Admin Dose 10 MG; Start 11/24/18 at 19:00 Anastrozole (Arimidex) 1 mg DAILY PO Last administered on 11/28/18 10:01; Admin Dose 1 MG; Start 11/25/18 at 10:30 Carvedilol (Coreg) 3.125 mg BID PO Last administered on 11/28/18 10:00; Admin Dose 3.125 MG; Start 11/25/18 at 10:30 Docusate Sodium (Colace) 100 mg BID PO Last administered on 11/28/18 09:59; Admin Dose 100 MG; Start 11/25/18 at 10:30 Loratadine (Claritin) 10 mg DAILY PO Last administered on 11/28/18 09:59; Admin Dose 10 MG; Start 11/25/18 at 10:30 Pantoprazole (Protonix Tab) 40 mg AC BREAKFAST PO Last administered on 11/28/18 05:55; Admin Dose 40 MG; Start 6/10/19 at 10:30 Polyethylene Glycol (Miralax) 17 gm DAILY PO Last administered on 11/28/18at 10:00; Admin Dose 17 GM; Start 11/25/18 at 10:30 Spironolactone (Aldactone) 50 mg DAILY PO Last administered on 11/28/18at 09:59; Admin Dose 50 MG; Start 11/25/18 at 10:30 Diclofenac Sodium (Voltaren 1% Gel) 2 gm QID TP ; Start 11/27/18 at 22:00 RUSS JEROME MD Nov 28, 2018 11:30
[2018-11-28] MEDS: DIPHENHYDRAMINE 25 MG CAP PO PRN (14:15)
[2018-11-28 14:40] VITALS: BP 103/60; PULSE 88; RESP 18
[2018-11-28 19:50] VITALS: BP 91/66; PULSE 84; RESP 18
--- NOTE | 2018-11-28 20:33 | CONS ---
Assessment/Plan Assessment/Plan Hospital Course (Demo Recall) IMPRESSION: 1. Congestive heart failure exacerbation would be diastolic, acute on chronic by most recent echo.-now s/p echo this admit with EF 60/small effusion 2. Abnormal electrocardiogram with low voltage, rule out pericardial effusion. 3. Hypertension-currently borderline hypotension 4. Metastatic breast carcinoma. 5. History of pathologic fractures of the leg, status post open reduction and internal fixation. 6. Anemia. 7. Increased BNP consistent with patient's congestive heart failure. 8. Pericardial effusion-small by echo 9. Edema-LE venous RAMÍREZ neg for DVT 10. Hypokalemia 11.Wrist fracture acute by films 11/20-conservative management at this time 12. Pleural effusion s/p thoracentesis today Recc: -On med-surg -Continued on metolazone and low dose PO bumex and on aldactone with overall reasonable volume status and resolution of much of LLE edema but still ongoing asymetric LE edema in leg with fractures -renal and onc following and now endocrine for bone density -continue loow dose coreg -follow K closely which is reasonable today on aldactone -currently conservative management of wrist fracture Consultation Date/Type/Reason Admit Date/Time October 21, 2018 at 17:39 Initial Consult Date 10/21/18 Type of Consult Cardiology Reason for Consultation CHF Requesting Provider: RUSS JEROME MD Date/Time of Note DATE: 11/28/18 TIME: 20:30 Exam/Review of Systems Vital Signs Vitals Vital Signs Date Temp Pulse Resp B/P (MAP) Pulse Ox O2 O2 Flow FiO2 Time Delivery Rate 11/28/18 98.3 88 18 103/60 91 Room Air 14:40 (74) 11/28/18 2.0 08:00 11/25/18 21 19:26 Intake and Output 11/27/18 11/27/18 11/28/18 1515:00 23:00 07:00 IntakeIntake Total 440 ml 200 ml OutputOutput Total 1 ml BalanceBalance 440 ml 199 ml Exam Exam Review of Systems: CONSTITUTIONAL: No fevers, chills. PULMONARY: No sob CARDIOVASCULAR: No chest pain/palpitations GASTROINTESTINAL: No nausea/vomiting. GENITOURINARY: No hematuria/dysuria. MUSCULOSKELETAL: pain in wrist PSYCHIATRIC: The patient denies depression. NEUROLOGIC: generalized weakness Constitutional: alert, oriented Psych: no complaints Head: normocephalic ENMT: mucosa pink and moist Neck: supple, jvd (9 cm water) Respiratory: diminished breath sounds (at bases/B) Cardiovascular: regular rate and rhythm Gastrointestinal: soft, non-tender Musculoskeletal: muscle tone (normal) Extremities: edema (none) Neurological: other (No focal deficits) Labs Result Diagram: 11/25/18 0503 11/25/18 0503 Medications Medications Current Medications Morphine Sulfate (morphine) 2 mg Q4H PRN IV SEVERE PAIN LEVEL 7-10 Last administered on 11/24/18 05:31; Admin Dose 2 MG; Start 10/22/18 at 01:30 Phenol (Cepastat Lozenge) 1 lozenge Q1H PRN [place] sore throat Last administered on 10/31/18 18:34; Admin Dose 1 LOZENGE; Start 10/27/18 at 21:30 Budesonide (Pulmicort (Neb)) 0.5 mg BID RESP THERAPY HHN Last administered on 11/25/18 19:26; Admin Dose 0.5 MG; Start 10/30/18 at 09:00 Metolazone (Zaroxolyn) 2.5 mg BID@0530,1730 PO Last administered on 11/28/18 18:19; Admin Dose 2.5 MG; Start 11/01/18 at 05:30 Enoxaparin Sodium (Lovenox) 40 mg DAILY SC Last administered on 11/23/18 09:02; Admin Dose 40 MG; Start 11/02/18 at 09:00; Status Hold Ibuprofen (Motrin) 400 mg Q6H PRN PO MILD PAIN(1-3) OR TEMP>38C Last administered on 11/24/18 08:55; Admin Dose 400 MG; Start 11/07/18 at 12:20 Potassium Chloride (Klor-Con 20) 20 meq BID PO Last administered on 11/28/18 09:59; Admin Dose 20 MEQ; Start 11/11/18 at 09:00 Ondansetron HCl (Zofran Inj) 4 mg Q6H PRN IV NAUSEA AND/OR VOMITING Last administered on 11/19/18 20:21; Admin Dose 4 MG; Start 11/19/18 at 20:30 Bumetanide (Bumex) 0.5 mg DAILY PO Last administered on 11/28/18 09:59; Admin Dose 0.5 MG; Start 11/20/18 at 09:00 Diphenhydramine HCl (Benadryl) 25 mg Q8H PRN PO ITCHING Last administered on 11/28/18 14:15; Admin Dose 25 MG; Start 11/20/18 at 14:00 Bisacodyl (Dulcolax Supp) 10 mg Q8H PRN [place] CONSTIPATION; Start 11/20/18 at 17:30 Guaifenesin/ Codeine Phosphate (Robitussin Ac Liquid Cup) 10 ml Q4H PRN PO COUGH; Start 11/20/18 at 17:30 Magnesium Hydroxide (Milk Of Mag) 30 ml DAILY PRN PO CONSTIPATION Last administered on 11/24/18 08:45; Admin Dose 30 ML; Start 11/20/18 at 17:30 Simethicone (Mylicon) 80 mg Q8H PRN PO INDIGESTION; Start 11/20/18 at 23:30 Oxycodone HCl (Oxycontin) 20 mg Q12 PO Last administered on 11/28/18 10:14; Admin Dose 20 MG; Start 11/24/18 at 21:00; Stop 11/30/18 at 20:59 Escitalopram Oxalate (Lexapro) 10 mg DAILY PO Last administered on 11/28/18 09:59; Admin Dose 10 MG; Start 11/24/18 at 19:00 Anastrozole (Arimidex) 1 mg DAILY PO Last administered on 11/28/18 10:01; Admin Dose 1 MG; Start 11/25/18 at 10:30 Carvedilol (Coreg) 3.125 mg BID PO Last administered on 11/28/18 10:00; Admin Dose 3.125 MG; Start 11/25/18 at 10:30 Docusate Sodium (Colace) 100 mg BID PO Last administered on 11/28/18 09:59; Admin Dose 100 MG; Start 11/25/18 at 10:30 Loratadine (Claritin) 10 mg DAILY PO Last administered on 11/28/18 09:59; Admin Dose 10 MG; Start 11/25/18 at 10:30 Pantoprazole (Protonix Tab) 40 mg AC BREAKFAST PO Last administered on 6/13/19at 05:55; Admin Dose 40 MG; Start 11/25/18 at 10:30 Polyethylene Glycol (Miralax) 17 gm DAILY PO Last administered on 11/28/18at 10:00; Admin Dose 17 GM; Start 11/25/18 at 10:30 Spironolactone (Aldactone) 50 mg DAILY PO Last administered on 11/28/18at 09:59; Admin Dose 50 MG; Start 11/25/18 at 10:30 Diclofenac Sodium (Voltaren 1% Gel) 2 gm QID TP Last administered on 11/28/18at 18:19; Admin Dose 2 GM; Start 11/27/18 at 22:00 KAMILA TERESA Nov 28, 2018 20:33
[2018-11-29 02:30] VITALS: BP 126/67; PULSE 84; RESP 18
[2018-11-29] MEDS: DIPHENHYDRAMINE 25 MG CAP PO PRN ×2 (03:21→14:06)
[2018-11-29] MEDS: PANTOPRAZOLE (EC) 40 MG TAB PO SCH (06:33)
[2018-11-29] MEDS: METOLAZONE 2.5 MG TAB PO SCH ×2 (07:32→18:18)
[2018-11-29 08:14] VITALS: BP 95/54; PULSE 83; RESP 18
[2018-11-29] MEDS: BUDESONIDE (NEB) 0.5MG/2ML AMP HHN SCH ×2 (09:00→20:00)
[2018-11-29] MEDS: BUMETANIDE 0.5 MG TAB PO SCH (09:30)
[2018-11-29] MEDS: POLYETHYLENE GLYCOL 17 GM PACKET PO SCH (09:30)
[2018-11-29] MEDS: DOCUSATE SODIUM 100 MG CAP PO SCH ×2 (09:30→21:12)
[2018-11-29] MEDS: LORATADINE 10 MG TAB PO SCH (09:31)
[2018-11-29] MEDS: ESCITALOPRAM 10 MG TAB PO SCH (09:31)
[2018-11-29] MEDS: SPIRONOLACTONE 50 MG TAB PO SCH (09:31)
[2018-11-29] MEDS: POTASSIUM CHLORIDE (SR) 20 MEQ TAB PO SCH ×2 (09:31→21:13)
[2018-11-29] MEDS: DICLOFENAC SODIUM 1% GEL 100 GM TUBE TP SCH ×4 (09:32→21:13)
[2018-11-29] MEDS: ANASTROZOLE 1 MG TAB PO SCH (09:32)
[2018-11-29] MEDS: oxyCODONE (CR) 20 MG TAB [oxyCONTIN] PO SCH ×2 (09:39→21:13)
[2018-11-29 15:13] VITALS: BP 102/59; PULSE 88; RESP 18
--- NOTE | 2018-11-29 17:05 | CONS ---
Assessment/Plan Assessment/Plan Hospital Course (Demo Recall) IMPRESSION: 1. Congestive heart failure exacerbation would be diastolic, acute on chronic by most recent echo.-now s/p echo this admit with EF 60/small effusion 2. Abnormal electrocardiogram with low voltage, rule out pericardial effusion. 3. Hypertension-currently borderline hypotension 4. Metastatic breast carcinoma. 5. History of pathologic fractures of the leg, status post open reduction and internal fixation. 6. Anemia. 7. Increased BNP consistent with patient's congestive heart failure. 8. Pericardial effusion-small by echo 9. Edema-LE venous RAMÍREZ neg for DVT 10. Hypokalemia 11.Wrist fracture acute by films 11/20-conservative management at this time 12. Pleural effusion s/p thoracentesis today Recc: -On med-surg -Continued on metolazone and low dose PO bumex and on aldactone with overall reasonable volume status and resolution of much of LLE edema but still ongoing asymetric LE edema in leg with fractures -renal and onc following and now endocrine for bone density -continue loow dose coreg -follow K closely which is reasonable today on aldactone -currently conservative management of wrist fracture Consultation Date/Type/Reason Admit Date/Time October 21, 2018 at 17:39 Initial Consult Date 10/21/18 Type of Consult Cardiology Reason for Consultation CHF Requesting Provider: RUSS JEROME MD Date/Time of Note DATE: 11/29/18 TIME: 17:04 Exam/Review of Systems Vital Signs Vitals Vital Signs Date Temp Pulse Resp B/P (MAP) Pulse Ox O2 O2 Flow FiO2 Time Delivery Rate 11/29/18 98.3 88 18 102/59 99 Room Air 15:13 (73) 11/28/18 2.0 08:00 11/25/18 21 19:26 Intake and Output 11/28/18 11/28/18 11/29/18 1515:00 23:00 07:00 IntakeIntake Total 201 ml BalanceBalance 201 ml Exam Exam Review of Systems: CONSTITUTIONAL: No fevers, chills. PULMONARY: No sob CARDIOVASCULAR: No chest pain/palpitations GASTROINTESTINAL: No nausea/vomiting. GENITOURINARY: No hematuria/dysuria. MUSCULOSKELETAL: No myagias/arthalgias. PSYCHIATRIC: The patient denies depression. NEUROLOGIC: No weakness Constitutional: alert Psych: no complaints Head: normocephalic ENMT: mucosa pink and moist Neck: supple, jvd (9 cm water) Respiratory: diminished breath sounds (at bases/B) Cardiovascular: regular rate and rhythm Gastrointestinal: soft, non-tender Musculoskeletal: muscle tone (normal) Extremities: edema (none) Neurological: other (No focal deficits) Labs Result Diagram: 11/25/18 0503 11/25/18 0503 Medications Medications Current Medications Morphine Sulfate (morphine) 2 mg Q4H PRN IV SEVERE PAIN LEVEL 7-10 Last administered on 11/24/18 05:31; Admin Dose 2 MG; Start 10/22/18 at 01:30 Phenol (Cepastat Lozenge) 1 lozenge Q1H PRN MT sore throat Last administered on 10/31/18 18:34; Admin Dose 1 LOZENGE; Start 10/27/18 at 21:30 Budesonide (Pulmicort (Neb)) 0.5 mg BID RESP THERAPY HHN Last administered on 11/25/18 19:26; Admin Dose 0.5 MG; Start 10/30/18 at 09:00 Metolazone (Zaroxolyn) 2.5 mg BID@2662,8600 PO Last administered on 11/29/18 07:32; Admin Dose 2.5 MG; Start 11/01/18 at 05:30 Enoxaparin Sodium (Lovenox) 40 mg DAILY SC Last administered on 11/23/18 09:02; Admin Dose 40 MG; Start 11/02/18 at 09:00; Status Hold Ibuprofen (Motrin) 400 mg Q6H PRN PO MILD PAIN(1-3) OR TEMP>38C Last administered on 11/24/18 08:55; Admin Dose 400 MG; Start 11/07/18 at 12:20 Potassium Chloride (Klor-Con 20) 20 meq BID PO Last administered on 11/29/18 09:31; Admin Dose 20 MEQ; Start 11/11/18 at 09:00 Ondansetron HCl (Zofran Inj) 4 mg Q6H PRN IV NAUSEA AND/OR VOMITING Last administered on 11/19/18 20:21; Admin Dose 4 MG; Start 11/19/18 at 20:30 Bumetanide (Bumex) 0.5 mg DAILY PO Last administered on 11/29/18 09:30; Admin Dose 0.5 MG; Start 11/20/18 at 09:00 Diphenhydramine HCl (Benadryl) 25 mg Q8H PRN PO ITCHING Last administered on 11/29/18 14:06; Admin Dose 25 MG; Start 11/20/18 at 14:00 Bisacodyl (Dulcolax Supp) 10 mg Q8H PRN [place] CONSTIPATION; Start 11/20/18 at 17:30 Guaifenesin/ Codeine Phosphate (Robitussin Ac Liquid Cup) 10 ml Q4H PRN PO COU GH; Start 11/20/18 at 17:30 Magnesium Hydroxide (Milk Of Mag) 30 ml DAILY PRN PO CONSTIPATION Last a dministered on 11/24/18 08:45; Admin Dose 30 ML; Start 11/20/18 at 17:30 Simethicone (Mylicon) 80 mg Q8H PRN PO INDIGESTION; Start 11/20/18 at 23:30 Oxycodone HCl (Oxycontin) 20 mg Q12 PO Last administered on 11/29/18 09:39; Admin Dose 20 MG; Start 11/24/18 at 21:00; Stop 11/30/18 at 20:59 Escitalopram Oxalate (Lexapro) 10 mg DAILY PO Last administered on 11/29/18 09:31; Admin Dose 10 MG; Start 11/24/18 at 19:00 Anastrozole (Arimidex) 1 mg DAILY PO Last administered on 11/29/18 09:32; Admin Dose 1 MG; Start 11/25/18 at 10:30 Carvedilol (Coreg) 3.125 mg BID PO Last administered on 11/29/18 09:32; Admin Dose 3.125 MG; Start 11/25/18 at 10:30 Docusate Sodium (Colace) 100 mg BID PO Last administered on 11/29/18 09:30; Admin Dose 100 MG; Start 11/25/18 at 10:30 Loratadine (Claritin) 10 mg DAILY PO Last administered on 11/29/18 09:31; Admin Dose 10 MG; Start 11/25/18 at 10:30 Pantoprazole (Protonix Tab) 40 mg AC BREAKFAST PO Last administered on 6/14/19at 06:33; Admin Dose 40 MG; Start 11/25/18 at 10:30 Polyethylene Glycol (Miralax) 17 gm DAILY PO Last administered on 11/29/18at 09:30; Admin Dose 17 GM; Start 11/25/18 at 10:30 Spironolactone (Aldactone) 50 mg DAILY PO Last administered on 11/29/18at 09:31; Admin Dose 50 MG; Start 11/25/18 at 10:30 Diclofenac Sodium (Voltaren 1% Gel) 2 gm QID TP Last administered on 11/29/18at 13:32; Admin Dose 2 GM; Start 11/27/18 at 22:00 Miscellaneous Information (*Order Clarification Bulletin) MEDICATION REQUIRES CLARIFICATI... Q8H XX ; Start 11/29/18 at 10:00 KAMILA TERESA Nov 29, 2018 17:05
[2018-11-29 19:15] VITALS: BP 105/60; PULSE 87; RESP 20
--- NOTE | 2018-11-29 19:23 | PN ---
Date/Time of Note Date/Time of Note DATE: 11/29/18 TIME: 19:20 Assessment/Plan VTE Prophylaxis Risk score (from Ns)>0 risk: 9 SCD applied (from Ns): No SCD contraindicated: other (on.) Pharmacological prophylaxis: LMWH Lines/Catheters IV Catheter Type (from Nrsg): Peripheral IV Central line still needed: Yes Urinary Cath still in place: No Reason Cath still needed: urinary retention Assessment/Plan Hospital Course Rrecurrent thoracentesis from left pleural cavity.Bronchitis got treated slowly. CHF improved but not totally gone. Continue current chemotherapy bronchodilator therapy correction of fluid his electrolytes and follow the algorithm for a total synthesis planning. Assessment/Plan 1. PRIMARY ADENOCARCINOMA of the left breast. MULTIPLE BONY METS, PULMONARY METS;LIVER METS CHEMO ON HOLD; PT HAS A VERY GOOD RESPONSE TO CHEMO AND AI 2. Severe pain in the interscapular and lumbar sacral area most probably metastatic lesion possible femoral fracture. pathologic fracture of T9 with 60% of loss of height. Neurosurgical f/u. 3. Obesity. 4. Weight loss 60 pounds during the last 2 years by diet 5. PMS. 6. Myopia. 7. Anemia chronic disease with a drop of her hematocrit to 27; Latest results 28. Will recheck tomorrow;Leukopenia.Thrombocytopenia; 8. Anxiety disorder. Claustrophobia. Increase Ativan to 1 mg every 8 as needed at Lexapro 10 mg daily. 9. Posttraumatic stress disorder. 10. Pain in the left forearm with a history of fracture of ulna and radius. 11. Tachycardia-resolved 12. Hypoxemia at night marginal improved after 2 L of nasal cannula oxygen. 13. Deconditioning 14. 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 MRI: 09/28/18:diffuse osseous metastatic disease with multiple pathologic compression fractures at least involving the T4, T5, T7, T9 and T11 levels. There is likely mild cortical breakthrough at several levels resulting in mild central canal narrowing. No gross evidence of cord compression is seen.. 15. Pain syndrome. Today the most painful zone is in the right hip area. 16. Hyponatremia-corrected; today and hold Aldactone today. 17. Leucopenia-improved. 18. Neutropenia with occasional fever and chills. Last chemotherapy 5 days ago. 19. Hypoalbuminemia. 20.Right sided cp after catheter insertion and correction less discomfort. 21. Decreased edema both lower extremities with [id number] with Pleural and Pericardial effusion. 22. pain syndrome 23.bilateral pleural effusions ; s/p recurrent left thoracentesis Reaccumulation of the pleural fluid. 24. Systolic over diastolic congestive heart failure with a right more than left lower extremity swelling with no DVT in latest venous Doppler. 25. Swelling of the left forearm-persist. Cellulitis of the left forearm with decreased edema anteriorly.-Today it is less edematous 26. Pathologic fracture of the right hip;s/p hemiarthroplasty of right hip . 27. Dizziness 28. Chills. 29. Memory impairment. 30. Upper respiratory infection pharyngitis with dry cough. 31. Decreased voice with wheezing. 32. Headaches 33. Hypokalemia- corrected Result Diagram: 11/25/18 05011/25/18502 Subjective 24 Hr Interval Summary Free Text/Dictation I am sleeping during the daytime on and off. Left forearm and right hip area pain is moderate and better controlled on pain medication particularly when I am not moving. Constitutional: improved, poor po, requiring O2; No no complaints, No chills, No diaphoresis, No disoriented, No febrile, No requiring IVF, No other Eyes: No no complaints, No pain, No discharge, No redness, No visual change, No other ENT: No no complaints, No bleeding, No pain, No congestion, No discharge, No dysphagia, No sore throat, No other Respiratory: cough, pleuritic pain, shortness of breath; No no complaints, No pain, No sputum, No wheezing, No other Cardiovascular: chest pain, edema (Right lower extremity edema is less than yesterday.); No no complaints, No lightheadedness, No orthopenea, No palpitations, No paroxysmal nocturnal dyspnea, No other Gastrointestinal: No no complaints, No pain, No blood, No constipation, No decreased appetite, No diarrhea, No flatus, No nausea, No passing stool, No vomiting, No other Genitourinary: dysuria; No no complaints, No bleeding, No discharge, No flank pain, No hematuria, No other Musculoskeletal: back pain, bone/joint pain Skin: pruritis, rash; No no complaints, No bruising, No erythema, No laceration, No skin lesions, No other Neurologic: No no complaints, No confusion, No dizziness, No focal-weakness, No headache, No syncope, No seizure, No other Endocrine: polyuria; No no complaints, No polydypsia, No dry skin, No temp intolerance, No other Lymphatic: No no complaints, No adenopathy, No tender nodes, No lymphadema, No other Psychological: anxiety; No no complaints, No nl mood/affect, No confusion, No depression, No suicidal, No other Exam/Review of Systems Exam Vitals Vital Signs Date Temp Pulse Resp B/P (MAP) Pulse Ox O2 O2 Flow FiO2 Time Delivery Rate 11/29/18 98.3 88 18 102/59 99 Room Air 15:13 (73) 11/28/18 2.0 08:00 11/25/18 21 19:26 Intake and Output 11/28/18 11/28/18 11/29/18 1515:00 23:00 07:00 IntakeIntake Total 201 ml BalanceBalance 201 ml Constitutional: alert, oriented, well developed, distress, frail, obese Psych: anxiety, depression; No no complaints, No nl mood/affect, No confusion, No suicidal, No other Head: normocephalic, atraumatic Eyes: EOMI, nl lids, PERRL; No nl conjunctiva, No nl sclera, No icteric, No fundi, disc, No other ENMT: nl external ears & nose; No nl lips & teeth, No nl nasal mucosa & septum, No mucosa pink and moist, No intubated, No tympanic membranes, No other Neck: jvd, bruits, thyromegaly, nuchal rigidity Respiratory: crackles/rales, diminished breath sounds Cardiovascular: regular rate and rhythm, diastolic murmur, jugular venous distention (JVD), systolic murmur; No nl pulses, No bruits, No edema, No gallop, No irregular rhythm, No murmurs/extra sounds, No rub, No S3, No S4, No other Gastrointestinal: soft, nl liver, spleen, bowel sounds; No non-tender, No ascites, No distended, No firm, No hepatomegaly, No mass, No rebound or guarding, No splenomegaly, No surgical scars, No tender, No other Genitourinary - Female: nl adnexae, nl external genitalia Musculoskeletal: joint tenderness; No nl extremities to inspection, No nl gait and stance, No muscle tone, No muscle weakness, No range of motion, No spine non-tender, No swelling, No other Extremities: pitting pedal edema; No normal pulses, No calf tenderness, No cyanosis, No clubbing, No edema, No palpable cord, No tenderness, No other Neurological: [employer] 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, confused, numbness; No nl mental status, No nl speech, No nl strength, No DTR's symmetric, No focal weakness, No lethargic, No reflexes, No unresponsive, No other Medications Medication Current Medications Morphine Sulfate (morphine) 2 mg Q4H PRN IV SEVERE PAIN LEVEL 7-10 Last administered on 11/24/18 05:31; Admin Dose 2 MG; Start 10/22/18 at 01:30 Phenol (Cepastat Lozenge) 1 lozenge Q1H PRN MT sore throat Last administered on 10/31/18 18:34; Admin Dose 1 LOZENGE; Start 10/27/18 at 21:30 Budesonide (Pulmicort (Neb)) 0.5 mg BID RESP THERAPY HHN Last administered on 11/25/18 19:26; Admin Dose 0.5 MG; Start 10/30/18 at 09:00 Metolazone (Zaroxolyn) 2.5 mg BID@0530,1730 PO Last administered on 11/29/18 18:18; Admin Dose 2.5 MG; Start 11/01/18 at 05:30 Enoxaparin Sodium (Lovenox) 40 mg DAILY SC Last administered on 11/23/18 09:02; Admin Dose 40 MG; Start 11/02/18 at 09:00; Status Hold Ibuprofen (Motrin) 400 mg Q6H PRN PO MILD PAIN(1-3) OR TEMP>38C Last administered on 11/24/18 08:55; Admin Dose 400 MG; Start 11/07/18 at 12:20 Potassium Chloride (Klor-Con 20) 20 meq BID PO Last administered on 11/29/18 09:31; Admin Dose 20 MEQ; Start 11/11/18 at 09:00 Ondansetron HCl (Zofran Inj) 4 mg Q6H PRN IV NAUSEA AND/OR VOMITING Last administered on 11/19/18 20:21; Admin Dose 4 MG; Start 11/19/18 at 20:30 Bumetanide (Bumex) 0.5 mg DAILY PO Last administered on 11/29/18 09:30; Admin Dose 0.5 MG; Start 11/20/18 at 09:00 Diphenhydramine HCl (Benadryl) 25 mg Q8H PRN PO ITCHING Last administered on 11/29/18 14:06; Admin Dose 25 MG; Start 11/20/18 at 14:00 Bisacodyl (Dulcolax Supp) 10 mg Q8H PRN [place] CONSTIPATION; Start 11/20/18 at 17:30 Guaifenesin/ Codeine Phosphate (Robitussin Ac Liquid Cup) 10 ml Q4H PRN PO COUGH; Start 11/20/18 at 17:30 Magnesium Hydroxide (Milk Of Mag) 30 ml DAILY PRN PO CONSTIPATION Last administered on 11/24/18 08:45; Admin Dose 30 ML; Start 11/20/18 at 17:30 Simethicone (Mylicon) 80 mg Q8H PRN PO INDIGESTION; Start 11/20/18 at 23:30 Oxycodone HCl (Oxycontin) 20 mg Q12 PO Last administered on 11/29/18 09:39; Admin Dose 20 MG; Start 11/24/18 at 21:00; Stop 11/30/18 at 20:59 Escitalopram Oxalate (Lexapro) 10 mg DAILY PO Last administered on 11/29/18 09:31; Admin Dose 10 MG; Start 11/24/18 at 19:00 Anastrozole (Arimidex) 1 mg DAILY PO Last administered on 11/29/18 09:32; Admin Dose 1 MG; Start 11/25/18 at 10:30 Carvedilol (Coreg) 3.125 mg BID PO Last administered on 11/29/18 09:32; Admin Dose 3.125 MG; Start 11/25/18 at 10:30 Docusate Sodium (Colace) 100 mg BID PO Last administered on 11/29/18 09:30; Admin Dose 100 MG; Start 11/25/18 at 10:30 Loratadine (Claritin) 10 mg DAILY PO Last administered on 11/29/18 09:31; Admin Dose 10 MG; Start 11/25/18 at 10:30 Pantoprazole (Protonix Tab) 40 mg AC BREAKFAST PO Last administered on 11/29/18at 06:33; Admin Dose 40 MG; Start 11/25/18 at 10:30 Polyethylene Glycol (Miralax) 17 gm DAILY PO Last administered on 11/29/18 09:30; Admin Dose 17 GM; Start 11/25/18 at 10:30 Spironolactone (Aldactone) 50 mg DAILY PO Last administered on 11/29/18 09:31; Admin Dose 50 MG; Start 11/25/18 at 10:30 Diclofenac Sodium (Voltaren 1% Gel) 2 gm QID TP Last administered on 11/29/18 18:18; Admin Dose 2 GM; Start 11/27/18 at 22:00 Miscellaneous Information (*Order Clarification Bulletin) MEDICATION REQUIRES CLARIFICATI... Q8H XX ; Start 11/29/18 at 10:00 RUSS JEROME MD Nov 29, 2018 19:23
[2018-11-30] MEDS: DIPHENHYDRAMINE 25 MG CAP PO PRN ×2 (00:44→23:27)
[2018-11-30 02:25] VITALS: BP 118/78; PULSE 88; RESP 20
[2018-11-30] MEDS: PANTOPRAZOLE (EC) 40 MG TAB PO SCH (07:00)
[2018-11-30] MEDS: METOLAZONE 2.5 MG TAB PO SCH ×2 (07:04→18:13)
[2018-11-30 07:38] VITALS: BP 109/63; PULSE 80; RESP 15
[2018-11-30] MEDS: POLYETHYLENE GLYCOL 17 GM PACKET PO SCH (08:56)
[2018-11-30] MEDS: SPIRONOLACTONE 50 MG TAB PO SCH (08:56)
[2018-11-30] MEDS: DOCUSATE SODIUM 100 MG CAP PO SCH ×2 (08:58→20:22)
[2018-11-30] MEDS: ANASTROZOLE 1 MG TAB PO SCH (08:58)
[2018-11-30] MEDS: POTASSIUM CHLORIDE (SR) 20 MEQ TAB PO SCH ×2 (08:58→20:23)
[2018-11-30] MEDS: LORATADINE 10 MG TAB PO SCH (08:59)
[2018-11-30] MEDS: oxyCODONE (CR) 20 MG TAB [oxyCONTIN] PO SCH ×2 (08:59→20:22)
[2018-11-30] MEDS: DICLOFENAC SODIUM 1% GEL 100 GM TUBE TP SCH ×4 (08:59→20:23)
[2018-11-30] MEDS: BUMETANIDE 0.5 MG TAB PO SCH (08:59)
[2018-11-30] MEDS: ESCITALOPRAM 10 MG TAB PO SCH (08:59)
[2018-11-30] MEDS: BUDESONIDE (NEB) 0.5MG/2ML AMP HHN SCH ×2 (09:00→20:00)
[2018-11-30 14:46] VITALS: BP 111/74; PULSE 91; RESP 14
--- NOTE | 2018-11-30 15:13 | PN ---
Date/Time of Note Date/Time of Note DATE: 11/30/18 TIME: 15:09 Assessment/Plan VTE Prophylaxis Risk score (from Ns)>0 risk: 3 SCD applied (from Ns): No SCD contraindicated: other Pharmacological prophylaxis: LMWH Lines/Catheters IV Catheter Type (from Nrs): Peripheral IV Central line still needed: Yes Urinary Cath still in place: No Assessment/Plan Hospital Course Rrecurrent thoracentesis from left pleural cavity.Bronchitis got treated slowly. CHF improved but not totally gone. Continue current chemotherapy bronchodilator therapy correction of fluid his electrolytes and follow the algorithm for a total synthesis planning. Assessment/Plan 1. PRIMARY ADENOCARCINOMA of the left breast. MULTIPLE BONY METS, PULMONARY METS;LIVER METS CHEMO ON HOLD; PT HAS A VERY GOOD RESPONSE TO CHEMO AND AI 2. Severe pain in the interscapular and lumbar sacral area most probably metastatic lesion possible femoral fracture. pathologic fracture of T9 with 60% of loss of height. Neurosurgical f/u. 3. Obesity. 4. Weight loss 60 pounds during the last 2 years by diet 5. PMS. 6. Myopia. 7. Anemia chronic disease with a drop of her hematocrit to 27; Latest results 28. Will recheck tomorrow;Leukopenia.Thrombocytopenia; 8. Anxiety disorder. Claustrophobia. Increase Ativan to 1 mg every 8 as needed at Lexapro 10 mg daily. 9. Posttraumatic stress disorder. 10. Pain in the left forearm with a history of fracture of ulna and radius. 11. Tachycardia-resolved 12. Hypoxemia at night marginal improved after 2 L of nasal cannula oxygen. 13. Deconditioning 14. 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 MRI: 09/28/18:diffuse osseous metastatic disease with multiple pathologic compression fractures at least involving the T4, T5, T7, T9 and T11 levels. There is likely mild cortical breakthrough at several levels resulting in mild central canal narrowing. No gross evidence of cord compression is seen.. 15. Pain syndrome. Today the most painful zone is in the right hip area. 16. Hyponatremia-corrected; today and hold Aldactone today. 17. Leucopenia-improved. 18. Neutropenia with occasional fever and chills. Last chemotherapy 5 days ago. 19. Hypoalbuminemia. 20.Right sided cp after catheter insertion and correction less discomfort. 21. Decreased edema both lower extremities with [id number] with Pleural and Pericardial effusion. 22. pain syndrome 23.bilateral pleural effusions ; s/p recurrent left thoracentesis Reaccumulation of the pleural fluid. 24. Systolic over diastolic congestive heart failure with a right more than left lower extremity swelling with no DVT in latest venous Doppler. 25. Swelling of the left forearm-persist. Cellulitis of the left forearm with decreased edema anteriorly.-Today it is less edematous 26. Pathologic fracture of the right hip;s/p hemiarthroplasty of right hip . 27. Dizziness 28. Chills. 29. Memory impairment. 30. Upper respiratory infection pharyngitis with dry cough. 31. Decreased voice with wheezing. 32. Headaches 33. Hypokalemia- corrected Subjective 24 Hr Interval Summary Free Text/Dictation dry cough with decreaased edema of right leg and left upper extremity. Constitutional: no complaints, improved; No chills, No diaphoresis, No disoriented, No febrile, No poor po, No requiring IVF, No requiring O2, No other Eyes: No no complaints, No pain, No discharge, No redness, No visual change, No other ENT: No no complaints, No bleeding, No pain, No congestion, No discharge, No dysphagia, No sore throat, No other Respiratory: cough; No no complaints, No pain, No pleuritic pain, No shortness of breath, No sputum, No wheezing, No other Cardiovascular: edema; No no complaints, No chest pain, No lightheadedness, No orthopenea, No palpitations, No paroxysmal nocturnal dyspnea, No other Gastrointestinal: No no complaints, No pain, No blood, No constipation, No decreased appetite, No diarrhea, No flatus, No nausea, No passing stool, No vomiting, No other Genitourinary: dysuria; No no complaints, No bleeding, No discharge, No flank pain, No hematuria, No other Musculoskeletal: back pain, bone/joint pain; No no complaints, No neck pain, No restricted range of motion, No swelling, No other Neurologic: No no complaints, No confusion, No dizziness, No focal-weakness, No syncope, No seizure, No other Exam/Review of Systems Exam Vitals Vital Signs Date Temp Pulse Resp B/P (MAP) Pulse Ox O2 O2 Flow FiO2 Time Delivery Rate 11/30/18 97.7 91 14 111/74 98 Room Air 14:46 (86) 11/28/18 2.0 08:00 Intake and Output 11/29/18 11/29/18 11/30/18 1515:00 23:00 07:00 IntakeIntake Total 800 ml 490 ml BalanceBalance 800 ml 490 ml Constitutional: alert, oriented, well developed; No non-verbal, No distress, No frail, No obese, No other Psych: anxiety; No no complaints, No nl mood/affect, No confusion, No depression, No suicidal, No other Head: normocephalic, atraumatic Eyes: EOMI, nl lids; No nl conjunctiva, No nl sclera, No PERRL, No icteric, No fundi, disc, No other ENMT: No nl external ears & nose, No nl lips & teeth, No nl nasal mucosa & septum, No mucosa pink and moist, No intubated, No tympanic membranes, No other Neck: supple, non-tender; No jvd, No bruits, No masses, No thyromegaly, No nuchal rigidity, No other Respiratory: congested cough, crackles/rales, diminished breath sounds; No clear to auscultation, No normal air movement, No intercostal retraction, No labored breathing, No respirations, No tactile fremitus, No wheezing, No oth er Cardiovascular: regular rate and rhythm, nl pulses; No bruits, No diastolic murmur, No edema, No gallop, No irregular rhythm, No jugular venous distention (JVD), No murmurs/extra sounds, No rub, No systolic murmur, No S3, No S4, No other Gastrointestinal: soft, nl liver, spleen, bowel sounds; No non-tender, No ascites, No distended, No firm, No hepatomegaly, No mass, No rebound or guarding, No splenomegaly, No surgical scars, No tender, No other Medications Medication Current Medications Morphine Sulfate (morphine) 2 mg Q4H PRN IV SEVERE PAIN LEVEL 7-10 Last administered on 11/24/18at 05:31; Admin Dose 2 MG; Start 10/22/18 at 01:30 Phenol (Cepastat Lozenge) 1 lozenge Q1H PRN MT sore throat Last administered on 10/31/18at 18:34; Admin Dose 1 LOZENGE; Start 10/27/18 at 21:30 Budesonide (Pulmicort (Neb)) 0.5 mg BID RESP THERAPY HHN Last administered on 11/25/18 19:26; Admin Dose 0.5 MG; Start 10/30/18 at 09:00 Metolazone (Zaroxolyn) 2.5 mg BID@3430,1730 PO Last administered on 11/30/18 07:04; Admin Dose 2.5 MG; Start 11/01/18 at 05:30 Enoxaparin Sodium (Lovenox) 40 mg DAILY SC Last administered on 11/23/18 09:02; Admin Dose 40 MG; Start 11/02/18 at 09:00; Status Hold Ibuprofen (Motrin) 400 mg Q6H PRN PO MILD PAIN(1-3) OR TEMP>38C Last administered on 11/24/18 08:55; Admin Dose 400 MG; Start 11/07/18 at 12:20 Potassium Chloride (Klor-Con 20) 20 meq BID PO Last administered on 11/30/18 08:58; Admin Dose 20 MEQ; Start 11/11/18 at 09:00 Ondansetron HCl (Zofran Inj) 4 mg Q6H PRN IV NAUSEA AND/OR VOMITING Last administered on 11/19/18 20:21; Admin Dose 4 MG; Start 11/19/18 at 20:30 Bumetanide (Bumex) 0.5 mg DAILY PO Last administered on 11/30/18 08:59; Admin Dose 0.5 MG; Start 11/20/18 at 09:00 Diphenhydramine HCl (Benadryl) 25 mg Q8H PRN PO ITCHING Last administered on 11/30/18 00:44; Admin Dose 25 MG; Start 11/20/18 at 14:00 Bisacodyl (Dulcolax Supp) 10 mg Q8H PRN DC CONSTIPATION; Start 11/20/18 at 17:30 Guaifenesin/ Codeine Phosphate (Robitussin Ac Liquid Cup) 10 ml Q4H PRN PO COUGH; Start 11/20/18 at 17:30 Magnesium Hydroxide (Milk Of Mag) 30 ml DAILY PRN PO CONSTIPATION Last administered on 11/24/18 08:45; Admin Dose 30 ML; Start 11/20/18 at 17:30 Simethicone (Mylicon) 80 mg Q8H PRN PO INDIGESTION; Start 11/20/18 at 23:30 Oxycodone HCl (Oxycontin) 20 mg Q12 PO Last administered on 11/30/18 08:59; Admin Dose 20 MG; Start 11/24/18 at 21:00; Stop 11/30/18 at 20:59 Escitalopram Oxalate (Lexapro) 10 mg DAILY PO Last administered on 11/30/18 08:59; Admin Dose 10 MG; Start 11/24/18 at 19:00 Anastrozole (Arimidex) 1 mg DAILY PO Last administered on 11/30/18 08:58; Admin Dose 1 MG; Start 11/25/18 at 10:30 Carvedilol (Coreg) 3.125 mg BID PO Last administered on 11/30/18 08:56; Admin Dose 3.125 MG; Start 11/25/18 at 10:30 Docusate Sodium (Colace) 100 mg BID PO Last administered on 11/30/18 08:58; Admin Dose 100 MG; Start 11/25/18 at 10:30 Loratadine (Claritin) 10 mg DAILY PO Last administered on 11/30/18 08:59; Admin Dose 10 MG; Start 11/25/18 at 10:30 Pantoprazole (Protonix Tab) 40 mg AC BREAKFAST PO Last administered on 11/30/18 07:00; Admin Dose 40 MG; Start 11/25/18 at 10:30 Polyethylene Glycol (Miralax) 17 gm DAILY PO Last administered on 11/30/18 0 8:56; Admin Dose 17 GM; Start 11/25/18 at 10:30 Spironolactone (Aldactone) 50 mg DAILY PO Last administered on 11/30/18 08:56; Admin Dose 50 MG; Start 11/25/18 at 10:30 Diclofenac Sodium (Voltaren 1% Gel) 2 gm QID TP Last administered on 11/30/18 08:59; Admin Dose 2 GM; Start 11/27/18 at 22:00 Miscellaneous Information (*Order Clarification Bulletin) MEDICATION REQUIRES CLARIFICATI... Q8H XX ; Start 11/29/18 at 10:00 RUSS JEROME MD Nov 30, 2018 15:13
--- NOTE | 2018-11-30 15:20 | CONS ---
Assessment/Plan Assessment/Plan Assessment/Plan (Daily) DHF compensated Abnormal electrocardiogram with low voltage Hypertension Metastatic breast carcinoma. Anemia. failure. Small pericardial effusion Wrist fracture acute by films 11/20-conservative management at this time Pleural effusion s/p thoracentesis Continue Metolazone and Bumex Continue Coreg Continue Aldactone Pain control as scheduled Conservative management of wrist fracture Consultation Date/Type/Reason Admit Date/Time October 21, 2018 at 17:39 Type of Consult Cardiology Date/Time of Note DATE: 11/30/18 TIME: 15:17 Past Medical History Home Meds Reported Medications Tuberculin,Purif.prot.deriv. (Tubersol) 5 Tub Unit/0.1 Ml Vial, 0.1 ML ID, VIAL INJECT QHS EVERY 10 DAYS FOR PPD SCREENING FOR 11 DAYS READ IN 48 HOURS,IF NEGATIVE 2STEP IN 7 DAYS FROM FIRST DOSE. 10/21/18 Acetaminophen* (Tylenol*) 325 Mg Tablet, 650 MG PO Q4H PRN for PAIN LEVEL 1- 10/10, TAB 10/21/18 Spironolactone* (Aldactone*) 50 Mg Tablet, 50 MG PO DAILY, #30 TAB HOLD FOR SBP<110 10/21/18 Simethicone* (Mylicon*) 80 Mg Tab, 80 MG PO Q8H, TAB 10/21/18 Olopatadine* (Patanol* Ophth) 0.1% - 5 Ml Drops, 1 DROP BOTH EYES BID, EA 10/21/18 Hydrocodone/Acetaminophen ([place] 10-325 Tablet) 1 Each Tablet, 1 EACH PO Q4H, TAB 10/21/18 Loratadine* (Loratadine*) 10 Mg Tablet, 10 MG PO DAILY for FOR 3 MONTHS, #30 TAB 10/21/18 Lidocaine (Lidocaine) 1 Each Adh..patch, 1 EACH TP DAILY 10/21/18 Ipratropium-Albuterol (Ipratropium-Albuterol) 0.5-3 Mg/3 Ml Ampul.neb, 3 ML INHALATION Q8H, #30 VIAL 10/21/18 Furosemide* (Furosemide*) 40 Mg Tablet, 40 MG PO BID, TAB HOLD FOR SBP<110 10/21/18 Na Phos,M-B/Na Phos,Di-Ba (Fleet Enema Extra) Unknown Strength Enema, 1 APPLIC RC NEEDED for CONSTIPATION, ENEMA 10/21/18 Bisacodyl (Dulcolax) 10 Mg Supp.rect, 10 MG RC NEEDED, SUPP.RECT 10/21/18 Potassium Chloride* (Potassium Chloride*) 20 Meq Tablet.er, 20 MEQ PO DAILY, TAB.SA 09/09/18 Pantoprazole* (Pantoprazole*) 40 Mg Tablet.dr, 40 MG PO AC BREAKFAST, TAB 08/22/18 Oxycodone Hcl* (Oxycontin*) 20 Mg Tab.er.12h, 20 MG PO Q12, TAB 08/22/18 Amlodipine Besylate* (Norvasc*) 5 Mg Tablet, 5 MG PO DAILY, TAB HOLD FOR SBP <110. 08/22/18 Polyethylene Glycol* (Miralax*) 17 Gm Powd.pack, 17 GM PO DAILY, #60 PACKET 08/22/18 Magnesium Hydroxide* (Milk Of Magnesia*) 400 Mg/5 Ml Oral.susp, 30 ML PO DAILY, ML 08/22/18 Escitalopram Oxalate* (Lexapro*) 10 Mg Tablet, 10 MG PO DAILY, #30 TAB 08/22/18 Docusate Sodium* (Colace*) 100 Mg Capsule, 100 MG PO BID, #60 CAP 08/22/18 Carvedilol* (Carvedilol*) 3.125 Mg Tablet, 3.125 MG PO BID, #60 TAB HOLD FOR SBP <110 OR IN <60. GIVE WITH FOOD. 08/22/18 Benazepril Hcl* (Benazepril Hcl*) 5 Mg Tablet, 5 MG PO DAILY, #60 TAB HOLD FOR SBP <110. 08/22/18 Anastrozole* (Arimidex*) 1 Mg Tablet, 1 MG PO DAILY, #30 TAB 08/22/18 Medications Current Medications Morphine Sulfate (morphine) 2 mg Q4H PRN IV SEVERE PAIN LEVEL 7-10 Last administered on 11/24/18at 05:31; Admin Dose 2 MG; Start 10/22/18 at 01:30 Phenol (Cepastat Lozenge) 1 lozenge Q1H PRN MT sore throat Last administered on 10/31/18at 18:34; Admin Dose 1 LOZENGE; Start 10/27/18 at 21:30 Budesonide (Pulmicort (Neb)) 0.5 mg BID RESP THERAPY HHN Last administered on 11/25/18 19:26; Admin Dose 0.5 MG; Start 10/30/18 at 09:00 Metolazone (Zaroxolyn) 2.5 mg BID@0530,1730 PO Last administered on 11/30/18 07:04; Admin Dose 2.5 MG; Start 11/01/18 at 05:30 Enoxaparin Sodium (Lovenox) 40 mg DAILY SC Last administered on 11/23/18 09:02; Admin Dose 40 MG; Start 11/02/18 at 09:00; Status Hold Ibuprofen (Motrin) 400 mg Q6H PRN PO MILD PAIN(1-3) OR TEMP>38C Last administered on 11/24/18 08:55; Admin Dose 400 MG; Start 11/07/18 at 12:20 Potassium Chloride (Klor-Con 20) 20 meq BID PO Last administered on 11/30/18 08:58; Admin Dose 20 MEQ; Start 11/11/18 at 09:00 Ondansetron HCl (Zofran Inj) 4 mg Q6H PRN IV NAUSEA AND/OR VOMITING Last administered on 11/19/18 20:21; Admin Dose 4 MG; Start 11/19/18 at 20:30 Bumetanide (Bumex) 0.5 mg DAILY PO Last administered on 11/30/18 08:59; Admin Dose 0.5 MG; Start 11/20/18 at 09:00 Diphenhydramine HCl (Benadryl) 25 mg Q8H PRN PO ITCHING Last administered on 11/30/18 00:44; Admin Dose 25 MG; Start 11/20/18 at 14:00 Bisacodyl (Dulcolax Supp) 10 mg Q8H PRN IN CONSTIPATION; Start 11/20/18 at 17:30 Guaifenesin/ Codeine Phosphate (Robitussin Ac Liquid Cup) 10 ml Q4H PRN PO COUGH; Start 11/20/18 at 17:30 Magnesium Hydroxide (Milk Of Mag) 30 ml DAILY PRN PO CONSTIPATION Last administered on 11/24/18 08:45; Admin Dose 30 ML; Start 11/20/18 at 17:30 Simethicone (Mylicon) 80 mg Q8H PRN PO INDIGESTION; Start 11/20/18 at 23:30 Oxycodone HCl (Oxycontin) 20 mg Q12 PO Last administered on 11/30/18 08:59; Admin Dose 20 MG; Start 11/24/18 at 21:00; Stop 11/30/18 at 20:59 Escitalopram Oxalate (Lexapro) 10 mg DAILY PO Last administered on 11/30/18 08:59; Admin Dose 10 MG; Start 11/24/18 at 19:00 Anastrozole (Arimidex) 1 mg DAILY PO Last administered on 11/30/18 08:58; Admin Dose 1 MG; Start 11/25/18 at 10:30 Carvedilol (Coreg) 3.125 mg BID PO Last administered on 11/30/18 08:56; Admin Dose 3.125 MG; Start 11/25/18 at 10:30 Docusate Sodium (Colace) 100 mg BID PO Last administered on 11/30/18 08:58; Admin Dose 100 MG; Start 11/25/18 at 10:30 Loratadine (Claritin) 10 mg DAILY PO Last administered on 11/30/18 08:59; Admin Dose 10 MG; Start 11/25/18 at 10:30 Pantoprazole (Protonix Tab) 40 mg AC BREAKFAST PO Last administered on 11/30/18 07:00; Admin Dose 40 MG; Start 11/25/18 at 10:30 Polyethylene Glycol (Miralax) 17 gm DAILY PO Last administered on 11/30/18 08:56; Admin Dose 17 GM; Start 11/25/18 at 10:30 Spironolactone (Aldactone) 50 mg DAILY PO Last administered on 11/30/18 08:56; Admin Dose 50 MG; Start 11/25/18 at 10:30 Diclofenac Sodium (Voltaren 1% Gel) 2 gm QID TP Last administered on 11/30/18 08:59; Admin Dose 2 GM; Start 11/27/18 at 22:00 Miscellaneous Information (*Order Clarification Bulletin) MEDICATION REQUIRES CLARIFICATI... Q8H XX ; Start 11/29/18 at 10:00 Allergies: Coded Allergies: No Known Drug Allergies (Verified Allergy, Unknown, 10/21/18) Past Surgical History Past Surgical Hx: no surgical history Social History Alcohol Use: none Smoking Status: Never smoker Drug Use: none Exam/Review of Systems Vital Signs Vitals Vital Signs Date Temp Pulse Resp B/P (MAP) Pulse Ox O2 O2 Flow FiO2 Time Delivery Rate 11/30/18 97.7 91 14 111/74 98 Room Air 14:46 (86) 11/28/18 2.0 08:00 Intake and Output 11/29/18 11/29/18 11/30/18 1515:00 23:00 07:00 IntakeIntake Total 800 ml 490 ml BalanceBalance 800 ml 490 ml Exam Constitutional: alert, oriented Head: normocephalic, atraumatic Respiratory: clear to auscultation Cardiovascular: regular rate and rhythm (no m/r/g) Gastrointestinal: soft Extremities: normal pulses Medications Medications Current Medications Morphine Sulfate (morphine) 2 mg Q4H PRN IV SEVERE PAIN LEVEL 7-10 Last administered on 11/24/18 05:31; Admin Dose 2 MG; Start 10/22/18 at 01:30 Phenol (Cepastat Lozenge) 1 lozenge Q1H PRN MT sore throat Last administered on 10/31/18 18:34; Admin Dose 1 LOZENGE; Start 10/27/18 at 21:30 Budesonide (Pulmicort (Neb)) 0.5 mg BID RESP THERAPY HHN Last administered on 11/25/18 19:26; Admin Dose 0.5 MG; Start 10/30/18 at 09:00 Metolazone (Zaroxolyn) 2.5 mg BID@0530,1730 PO Last administered on 11/30/18 07:04; Admin Dose 2.5 MG; Start 11/01/18 at 05:30 Enoxaparin Sodium (Lovenox) 40 mg DAILY SC Last administered on 11/23/18 09:02; Admin Dose 40 MG; Start 11/02/18 at 09:00; Status Hold Ibuprofen (Motrin) 400 mg Q6H PRN PO MILD PAIN(1-3) OR TEMP>38C Last administered on 11/24/18 08:55; Admin Dose 400 MG; Start 11/07/18 at 12:20 Potassium Chloride (Klor-Con 20) 20 meq BID PO Last administered on 11/30/18 08:58; Admin Dose 20 MEQ; Start 11/11/18 at 09:00 Ondansetron HCl (Zofran Inj) 4 mg Q6H PRN IV NAUSEA AND/OR VOMITING Last administered on 11/19/18 20:21; Admin Dose 4 MG; Start 11/19/18 at 20:30 Bumetanide (Bumex) 0.5 mg DAILY PO Last administered on 11/30/18 08:59; Admin Dose 0.5 MG; Start 11/20/18 at 09:00 Diphenhydramine HCl (Benadryl) 25 mg Q8H PRN PO ITCHING Last administered on 11/30/18 00:44; Admin Dose 25 MG; Start 11/20/18 at 14:00 Bisacodyl (Dulcolax Supp) 10 mg Q8H PRN IN CONSTIPATION; Start 11/20/18 at 17:30 Guaifenesin/ Codeine Phosphate (Robitussin Ac Liquid Cup) 10 ml Q4H PRN PO COUGH; Start 11/20/18 at 17:30 Magnesium Hydroxide (Milk Of Mag) 30 ml DAILY PRN PO CONSTIPATION Last administered on 11/24/18 08:45; Admin Dose 30 ML; Start 11/20/18 at 17:30 Simethicone (Mylicon) 80 mg Q8H PRN PO INDIGESTION; Start 11/20/18 at 23:30 Oxycodone HCl (Oxycontin) 20 mg Q12 PO Last administered on 11/30/18 08:59; Admin Dose 20 MG; Start 11/24/18 at 21:00; Stop 11/30/18 at 20:59 Escitalopram Oxalate (Lexapro) 10 mg DAILY PO Last administered on 11/30/18 08:59; Admin Dose 10 MG; Start 11/24/18 at 19:00 Anastrozole (Arimidex) 1 mg DAILY PO Last administered on 11/30/18 08:58; Admin Dose 1 MG; Start 11/25/18 at 10:30 Carvedilol (Coreg) 3.125 mg BID PO Last administered on 11/30/18 08:56; Admin Dose 3.125 MG; Start 11/25/18 at 10:30 Docusate Sodium (Colace) 100 mg BID PO Last administered on 11/30/18 08:58; Admin Dose 100 MG; Start 11/25/18 at 10:30 Loratadine (Claritin) 10 mg DAILY PO Last administered on 11/30/18 08:59; Admin Dose 10 MG; Start 11/25/18 at 10:30 Pantoprazole (Protonix Tab) 40 mg AC BREAKFAST PO Last administered on 11/30/18 07:00; Admin Dose 40 MG; Start 11/25/18 at 10:30 Polyethylene Glycol (Miralax) 17 gm DAILY PO Last administered on 11/30/18 08:56; Admin Dose 17 GM; Start 11/25/18 at 10:30 Spironolactone (Aldactone) 50 mg DAILY PO Last administered on 11/30/18 08:56; Admin Dose 50 MG; Start 11/25/18 at 10:30 Diclofenac Sodium (Voltaren 1% Gel) 2 gm QID TP Last administered on 11/30/18 08:59; Admin Dose 2 GM; Start 11/27/18 at 22:00 Miscellaneous Information (*Order Clarification Bulletin) MEDICATION REQUIRES CLARIFICATI... Q8H XX ; Start 11/29/18 at 10:00 KAREL BECKER M.D. Nov 30, 2018 15:20
[2018-11-30 19:23] VITALS: BP 110/69; PULSE 87; RESP 14
[2018-12-01 02:30] VITALS: BP 106/70; PULSE 92; RESP 19
[2018-12-01] MEDS: PANTOPRAZOLE (EC) 40 MG TAB PO SCH (07:24)
[2018-12-01] MEDS: METOLAZONE 2.5 MG TAB PO SCH ×2 (07:30→17:42)
[2018-12-01 07:38] VITALS: BP 104/65; PULSE 74; RESP 14
[2018-12-01] MEDS: ANASTROZOLE 1 MG TAB PO SCH (10:07)
[2018-12-01] MEDS: DOCUSATE SODIUM 100 MG CAP PO SCH ×2 (10:08→22:00)
[2018-12-01] MEDS: ESCITALOPRAM 10 MG TAB PO SCH (10:08)
[2018-12-01] MEDS: POTASSIUM CHLORIDE (SR) 20 MEQ TAB PO SCH ×2 (10:08→22:00)
[2018-12-01] MEDS: BUMETANIDE 0.5 MG TAB PO SCH (10:08)
[2018-12-01] MEDS: LORATADINE 10 MG TAB PO SCH (10:08)
[2018-12-01] MEDS: oxyCODONE (CR) 20 MG TAB [oxyCONTIN] PO SCH ×2 (10:09→22:01)
[2018-12-01] MEDS: SPIRONOLACTONE 50 MG TAB PO SCH (10:09)
[2018-12-01] MEDS: DICLOFENAC SODIUM 1% GEL 100 GM TUBE TP SCH ×4 (10:09→22:03)
[2018-12-01] MEDS: POLYETHYLENE GLYCOL 17 GM PACKET PO SCH (10:09)
--- NOTE | 2018-12-01 11:45 | PN ---
Date/Time of Note Date/Time of Note DATE: 12/01/18 TIME: 11:41 Assessment/Plan VTE Prophylaxis Risk score (from Ns)>0 risk: 6 SCD applied (from Ns): Yes SCD contraindicated: other (on.) Pharmacological prophylaxis: LMWH Lines/Catheters IV Catheter Type (from [facility] port-a-cath Central line still needed: Yes Urinary Cath still in place: No Reason Cath still needed: urinary retention Assessment/Plan Hospital Course Rrecurrent thoracentesis from left pleural cavity.Bronchitis got treated slowly. CHF improved but not totally gone. Continue current chemotherapy bronchodilator therapy correction of fluid his electrolytes and follow the algorithm for a total synthesis planning. Assessment/Plan 1. PRIMARY ADENOCARCINOMA of the left breast. MULTIPLE BONY METS, PULMONARY METS;LIVER METS CHEMO ON HOLD; PT HAS A VERY GOOD RESPONSE TO CHEMO AND AI 2. Severe pain in the interscapular and lumbar sacral area most probably metastatic lesion possible femoral fracture. pathologic fracture of T9 with 60% of loss of height. Neurosurgical f/u. 3. Obesity. 4. Weight loss 60 pounds during the last 2 years by diet 5. PMS. 6. Myopia. 7. Anemia chronic disease with a drop of her hematocrit to 27; Latest results 28. Will recheck tomorrow;Leukopenia.Thrombocytopenia; 8. Anxiety disorder. Claustrophobia. Increase Ativan to 1 mg every 8 as needed at Lexapro 10 mg daily. 9. Posttraumatic stress disorder. 10. Pain in the left forearm with a history of fracture of ulna and radius. 11. Tachycardia-resolved 12. Hypoxemia at night marginal improved after 2 L of nasal cannula oxygen. 13. Deconditioning 14. 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 MRI: 09/28/18:diffuse osseous metastatic disease with multiple pathologic compression fractures at least involving the T4, T5, T7, T9 and T11 levels. There is likely mild cortical breakthrough at several levels resulting in mild central canal narrowing. No gross evidence of cord compression is seen.. 15. Pain syndrome. Today the most painful zone is in the right hip area. 16. Hyponatremia-corrected; today and hold Aldactone today. 17. Leucopenia-improved. 18. Neutropenia with occasional fever and chills. Last chemotherapy 5 days ago. 19. Hypoalbuminemia. 20.Right sided cp after catheter insertion and correction less discomfort. 21. Decreased edema both lower extremities with [id number] with Pleural and Pericardial effusion. 22. pain syndrome 23.bilateral pleural effusions ; s/p recurrent left thoracentesis Reaccumulation of the pleural fluid. 24. Systolic over diastolic congestive heart failure with a right more than left lower extremity swelling with no DVT in latest venous Doppler. 25. Swelling of the left forearm-persist. Cellulitis of the left forearm with decreased edema anteriorly.-Today it is less edematous 26. Pathologic fracture of the right hip;s/p hemiarthroplasty of right hip . 27. Dizziness 28. Chills. 29. Memory impairment. 30. Upper respiratory infection pharyngitis with dry cough. 31. Decreased voice with wheezing. 32. Headaches 33. Hypokalemia- corrected Subjective 24 Hr Interval Summary Free Text/Dictation When ambulating position there is only mild pain in the left wrist and right hip area. After starting the Voltaren gel for right thigh pain had decreased in intensity. Event walking without present medication the pain is become intolerable mainly in the right hip area. Constitutional: no complaints, improved, poor po; No chills, No diaphoresis, No disoriented, No febrile, No requiring IVF, No requiring O2, No other Eyes: No no complaints, No pain, No discharge, No redness, No visual change, No other ENT: congestion; No no complaints, No bleeding, No pain, No discharge, No dysphagia, No sore throat, No other Respiratory: cough, pleuritic pain, shortness of breath; No no complaints, No pain, No sputum, No wheezing, No other Cardiovascular: chest pain, edema; No no complaints, No lightheadedness, No orthopenea, No palpitations, No paroxysmal nocturnal dyspnea, No other Gastrointestinal: constipation, flatus, nausea; No no complaints, No pain, No blood, No decreased appetite, No diarrhea, No passing stool, No vomiting, No other Genitourinary: dysuria; No no complaints, No bleeding, No discharge, No flank pain, No hematuria, No other Musculoskeletal: back pain, bone/joint pain Skin: No no complaints, No bruising, No erythema, No laceration, No pruritis, No rash, No skin lesions, No other Neurologic: dizziness, headache; No no complaints, No confusion, No focal-weakness, No syncope, No seizure, No other Endocrine: dry skin; No no complaints, No polyuria, No polydypsia, No temp intolerance, No other Psychological: anxiety, depression; No no complaints, No nl mood/affect, No confusion, No suicidal, No other Exam/Review of Systems Exam Vitals Vital Signs Date Temp Pulse Resp B/P (MAP) Pulse Ox O2 O2 Flow FiO2 Time Delivery Rate 12/01/18 97.9 74 14 104/65 96 Room Air 07:38 (78) 11/28/18 2.0 08:00 Intake and Output 11/30/18 11/30/18 12/01/18 1414:59 22:59 06:59 IntakeIntake Total 1320 ml 540 ml 200 ml BalanceBalance 1320 ml 540 ml 200 ml Constitutional: alert, oriented, well developed, distress, frail, obese Psych: anxiety, depression; No no complaints, No nl mood/affect, No confusion, No suicidal, No other Head: normocephalic, atraumatic; No lacerations, No hematomas, No other Eyes: EOMI, nl lids, PERRL; No nl conjunctiva, No nl sclera, No icteric, No fundi, disc, No other ENMT: No nl external ears & nose, No nl lips & teeth, No nl nasal mucosa & septum, No mucosa pink and moist, No intubated, No tympanic membranes, No other Neck: jvd, bruits, thyromegaly, nuchal rigidity; No supple, No non-tender, No masses, No other Respiratory: crackles/rales, diminished breath sounds; No clear to auscultation, No normal air movement, No congested cough, No intercostal retraction, No labored breathing, No respirations, No tactile fremitus, No wheezing, No other Cardiovascular: bruits, edema, systolic murmur; No regular rate and rhythm, No nl pulses, No diastolic murmur, No gallop, No irregular rhythm, No jugular venous distention (JVD), No murmurs/extra sounds, No rub, No S3, No S4, No other Gastrointestinal: soft, nl liver, spleen, bowel sounds Genitourinary - Female: nl adnexae, nl external genitalia; No CMT, No CVA tenderness, No uterus, No other Musculoskeletal: nl gait and stance (Must use a walker needs at least one person sometimes to pupils support makes heroic efforts to be able to walk and according to her today she was almost health corridor lanes on the floor.), joint tenderness, muscle tone, muscle weakness; No nl extremities to inspection, No range of motion, No spine non-tender, No swelling, No other Extremities: edema; No normal pulses, No calf tenderness, No cyanosis, No clubbing, No pitting pedal edema, No palpable cord, No tenderness, No other Neurological: [employer]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, confused, numbness; No nl mental status, No nl speech, No nl strength, No DTR's symmetric, No focal weakness, No lethargic, No reflexes, No unresponsive, No other Medications Medication Current Medications Morphine Sulfate (morphine) 2 mg Q4H PRN IV SEVERE PAIN LEVEL 7-10 Last administered on 11/24/18 05:31; Admin Dose 2 MG; Start 10/22/18 at 01:30 Phenol (Cepastat Lozenge) 1 lozenge Q1H PRN MT sore throat Last administered on 10/31/18 18:34; Admin Dose 1 LOZENGE; Start 10/27/18 at 21:30 Metolazone (Zaroxolyn) 2.5 mg BID@0530,1730 PO Last administered on 12/01/18 07:30; Admin Dose 2.5 MG; Start 11/01/18 at 05:30 Enoxaparin Sodium (Lovenox) 40 mg DAILY SC Last administered on 11/23/18 09:02; Admin Dose 40 MG; Start 11/02/18 at 09:00; Status Hold Ibuprofen (Motrin) 400 mg Q6H PRN PO MILD PAIN(1-3) OR TEMP>38C Last administered on 11/24/18 08:55; Admin Dose 400 MG; Start 11/07/18 at 12:20 Potassium Chloride (Klor-Con 20) 20 meq BID PO Last administered on 12/01/18 10:08; Admin Dose 20 MEQ; Start 11/11/18 at 09:00 Ondansetron HCl (Zofran Inj) 4 mg Q6H PRN IV NAUSEA AND/OR VOMITING Last administered on 11/19/18 20:21; Admin Dose 4 MG; Start 11/19/18 at 20:30 Bumetanide (Bumex) 0.5 mg DAILY PO Last administered on 12/01/18 10:08; Admin Dose 0.5 MG; Start 11/20/18 at 09:00 Diphenhydramine HCl (Benadryl) 25 mg Q8H PRN PO ITCHING Last administered on 11/30/18 23:27; Admin Dose 25 MG; Start 11/20/18 at 14:00 Bisacodyl (Dulcolax Supp) 10 mg Q8H PRN MD CONSTIPATION; Start 11/20/18 at 17:30 Guaifenesin/ Codeine Phosphate (Robitussin Ac Liquid Cup) 10 ml Q4H PRN PO COUGH; Start 11/20/18 at 17:30 Magnesium Hydroxide (Milk Of Mag) 30 ml DAILY PRN PO CONSTIPATION Last administered on 11/24/18 08:45; Admin Dose 30 ML; Start 11/20/18 at 17:30 Simethicone (Mylicon) 80 mg Q8H PRN PO INDIGESTION; Start 11/20/18 at 23:30 Escitalopram Oxalate (Lexapro) 10 mg DAILY PO Last administered on 12/01/18 10:08; Admin Dose 10 MG; Start 11/24/18 at 19:00 Anastrozole (Arimidex) 1 mg DAILY PO Last administered on 12/01/18 10:07; Admin Dose 1 MG; Start 11/25/18 at 10:30 Carvedilol (Coreg) 3.125 mg BID PO Last administered on 12/01/18 10:08; Admin Dose 3.125 MG; Start 11/25/18 at 10:30 Docusate Sodium (Colace) 100 mg BID PO Last administered on 12/01/18 10:08; Admin Dose 100 MG; Start 11/25/18 at 10:30 Loratadine (Claritin) 10 mg DAILY PO Last administered on 12/01/18 10:08; Admin Dose 10 MG; Start 11/25/18 at 10:30 Pantoprazole (Protonix Tab) 40 mg AC BREAKFAST PO Last administered on 12/01/18 07:24; Admin Dose 40 MG; Start 11/25/18 at 10:30 Polyethylene Glycol (Miralax) 17 gm DAILY PO Last administered on 6/16/19at 10:09; Admin Dose 17 GM; Start 11/25/18 at 10:30 Spironolactone (Aldactone) 50 mg DAILY PO Last administered on 12/01/18 10:09; Admin Dose 50 MG; Start 11/25/18 at 10:30 Diclofenac Sodium (Voltaren 1% Gel) 2 gm QID TP Last administered on 12/01/18at 10:09; Admin Dose 2 GM; Start 11/27/18 at 22:00 Miscellaneous Information (*Order Clarification Bulletin) MEDICATION REQUIRES CLARIFICATI... Q8H XX ; Start 11/29/18 at 10:00 Miscellaneous Information (*Order Clarification Bulletin) MEDICATION REQUIRES CLARIFICATI... Q8H XX ; Start 12/01/18 at 06:00 Oxycodone HCl (Oxycontin) 20 mg BID PO Last administered on 12/01/18at 10:09; Admin Dose 20 MG; Start 12/01/18 at 09:00 RUSS JEROME MD Dec 01, 2018 11:45
[2018-12-01] MEDS ORDERED: BUDESONIDE (NEB) 0.5MG/2ML AMP HHN PRN (13:00)
--- NOTE | 2018-12-01 14:35 | CONS ---
Assessment/Plan Assessment/Plan Assessment/Plan (Daily) DHF compensated Abnormal electrocardiogram with low voltage Hypertension Metastatic breast carcinoma. Anemia. failure. Small pericardial effusion Wrist fracture acute by films 11/20-conservative management at this time Pleural effusion s/p thoracentesis Continue Metolazone and Bumex Continue Coreg Continue Aldactone Pain control as scheduled Conservative management of wrist fracture Consultation Date/Type/Reason Admit Date/Time October 21, 2018 at 17:39 Initial Consult Date 11/21/18 Type of Consult Cardiology Requesting Provider: RUSS JEROME MD Date/Time of Note DATE: 12/01/18 TIME: 14:34 Exam/Review of Systems Vital Signs Vitals Vital Signs Date Temp Pulse Resp B/P (MAP) Pulse Ox O2 O2 Flow FiO2 Time Delivery Rate 12/01/18 97.9 74 14 104/65 96 Room Air 07:38 (78) 11/28/18 2.0 08:00 Intake and Output 11/30/18 11/30/18 12/01/18 1515:00 23:00 07:00 IntakeIntake Total 1320 ml 540 ml 200 ml BalanceBalance 1320 ml 540 ml 200 ml Exam Exam Head: normocephalic, atraumatic Respiratory: clear to auscultation Cardiovascular: regular rate and rhythm (no m/r/g) Gastrointestinal: soft Extremities: normal pulses Medications Medications Current Medications Morphine Sulfate (morphine) 2 mg Q4H PRN IV SEVERE PAIN LEVEL 7-10 Last administered on 11/24/18at 05:31; Admin Dose 2 MG; Start 10/22/18 at 01:30 Phenol (Cepastat Lozenge) 1 lozenge Q1H PRN MT sore throat Last administered on 10/31/18at 18:34; Admin Dose 1 LOZENGE; Start 10/27/18 at 21:30 Metolazone (Zaroxolyn) 2.5 mg BID@0530,1730 PO Last administered on 12/01/18at 07:30; Admin Dose 2.5 MG; Start 11/01/18 at 05:30 Enoxaparin Sodium (Lovenox) 40 mg DAILY SC Last administered on 11/23/18at 09:02; Admin Dose 40 MG; Start 11/02/18 at 09:00; Status Hold Ibuprofen (Motrin) 400 mg Q6H PRN PO MILD PAIN(1-3) OR TEMP>38C Last admi nistered on 11/24/18 08:55; Admin Dose 400 MG; Start 11/07/18 at 12:20 Potassium Chloride (Klor-Con 20) 20 meq BID PO Last administered on 12/01/18 10:08; Admin Dose 20 MEQ; Start 11/11/18 at 09:00 Ondansetron HCl (Zofran Inj) 4 mg Q6H PRN IV NAUSEA AND/OR VOMITING Last administered on 11/19/18 20:21; Admin Dose 4 MG; Start 11/19/18 at 20:30 Bumetanide (Bumex) 0.5 mg DAILY PO Last administered on 12/01/18 10:08; Admin Dose 0.5 MG; Start 11/20/18 at 09:00 Diphenhydramine HCl (Benadryl) 25 mg Q8H PRN PO ITCHING Last administered on 11/30/18 23:27; Admin Dose 25 MG; Start 11/20/18 at 14:00 Bisacodyl (Dulcolax Supp) 10 mg Q8H PRN [place] CONSTIPATION; Start 11/20/18 at 17:30 Guaifenesin/ Codeine Phosphate (Robitussin Ac Liquid Cup) 10 ml Q4H PRN PO COUGH; Start 11/20/18 at 17:30 Magnesium Hydroxide (Milk Of Mag) 30 ml DAILY PRN PO CONSTIPATION Last administered on 11/24/18 08:45; Admin Dose 30 ML; Start 11/20/18 at 17:30 Simethicone (Mylicon) 80 mg Q8H PRN PO INDIGESTION; Start 11/20/18 at 23:30 Escitalopram Oxalate (Lexapro) 10 mg DAILY PO Last administered on 12/01/18 10:08; Admin Dose 10 MG; Start 11/24/18 at 19:00 Anastrozole (Arimidex) 1 mg DAILY PO Last administered on 12/01/18 10:07; Admin Dose 1 MG; Start 11/25/18 at 10:30 Carvedilol (Coreg) 3.125 mg BID PO Last administered on 12/01/18 10:08; Admin Dose 3.125 MG; Start 11/25/18 at 10:30 Docusate Sodium (Colace) 100 mg BID PO Last administered on 12/01/18 10:08; Admin Dose 100 MG; Start 11/25/18 at 10:30 Loratadine (Claritin) 10 mg DAILY PO Last administered on 12/01/18 10:08; Admin Dose 10 MG; Start 11/25/18 at 10:30 Pantoprazole (Protonix Tab) 40 mg AC BREAKFAST PO Last administered on 12/01/18 07:24; Admin Dose 40 MG; Start 11/25/18 at 10:30 Polyethylene Glycol (Miralax) 17 gm DAILY PO Last administered on 12/01/18 10:09; Admin Dose 17 GM; Start 11/25/18 at 10:30 Spironolactone (Aldactone) 50 mg DAILY PO Last administered on 12/01/18 10:09; Admin Dose 50 MG; Start 11/25/18 at 10:30 Diclofenac Sodium (Voltaren 1% Gel) 2 gm QID TP Last administered on 12/01/18 10:09; Admin Dose 2 GM; Start 11/27/18 at 22:00 Miscellaneous Information (*Order Clarification Bulletin) MEDICATION REQUIRES CLARIFICATI... Q8H XX ; Start 12/01/18 at 06:00 Oxycodone HCl (Oxycontin) 20 mg BID PO Last administered on 12/01/18 10:09; Admin Dose 20 MG; Start 12/01/18 at 09:00 Budesonide (Pulmicort (Neb)) 0.5 mg BID RESP THERAPY PRN HHN WHEEZING; Start 12/01/18 at 13:00 KAREL BECKER M.D. Dec 01, 2018 14:35
[2018-12-01 15:21] VITALS: BP 98/58; PULSE 81; RESP 14
[2018-12-01 19:48] VITALS: BP 98/63; PULSE 83; RESP 18
[2018-12-01 22:00] VITALS: BP 102/60; PULSE 80; RESP 18
[2018-12-02 01:08] VITALS: BP 108/56; PULSE 65; RESP 18
[2018-12-02] MEDS: PANTOPRAZOLE (EC) 40 MG TAB PO SCH (06:58)
[2018-12-02] MEDS: METOLAZONE 2.5 MG TAB PO SCH ×2 (07:00→18:01)
[2018-12-02 07:16] VITALS: BP 97/64; PULSE 84; RESP 18
--- NOTE | 2018-12-02 08:26 | PN ---
Date/Time of Note Date/Time of Note DATE: 12/02/18 TIME: 08:18 Assessment/Plan VTE Prophylaxis Risk score (from Ns)>0 risk: 7 SCD applied (from Ns): Yes SCD contraindicated: other (on.) Pharmacological prophylaxis: NA/contraindicated, other (planned thoracentesis.) Pharm contraindication: other (planned thoracentesis.) Lines/Catheters IV [facility]ter [facility]from [facility]): Peripheral IV Central line still needed: Yes Urinary Cath still in place: No Reason Cath still needed: urinary retention Assessment/Plan Hospital Course Rrecurrent thoracentesis from left pleural cavity.Bronchitis got treated slowly. CHF improved but not totally gone. Continue current chemotherapy bronchodilator therapy correction of fluid his electrolytes and follow the algorithm for a total synthesis planning. Assessment/Plan 1. PRIMARY ADENOCARCINOMA of the left breast. MULTIPLE BONY METS, PULMONARY METS;LIVER METS CHEMO ON HOLD; PT HAS A VERY GOOD RESPONSE TO CHEMO AND AI 2. Severe pain in the interscapular and lumbar sacral area most probably metastatic lesion possible femoral fracture. pathologic fracture of T9 with 60% of loss of height. Neurosurgical f/u. 3. Obesity. 4. Weight loss 60 pounds during the last 2 years by diet 5. PMS. 6. Myopia. 7. Anemia chronic disease with a drop of her hematocrit to 27; Latest results 28. Will recheck tomorrow;Leukopenia.Thrombocytopenia; 8. Anxiety disorder. Claustrophobia. Increase Ativan to 1 mg every 8 as needed at Lexapro 10 mg daily. 9. Posttraumatic stress disorder. 10. Pain in the left forearm with a history of fracture of ulna and radius. 11. Tachycardia-resolved 12. Hypoxemia at night marginal improved after 2 L of nasal cannula oxygen. 13. Deconditioning 14. 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 MRI: 09/28/18:diffuse osseous metastatic disease with multiple pathologic compression fractures at least involving the T4, T5, T7, T9 and T11 levels. There is likely mild cortical breakthrough at several levels resulting in mild central canal narrowing. No g ross evidence of cord compression is seen.. 15. Pain syndrome. Today the most painful zone is in the right hip area. 16. Hyponatremia-corrected; today and hold Aldactone today. 17. Leucopenia-improved. 18. Neutropenia with occasional fever and chills. Last chemotherapy 5 days ago. 19. Hypoalbuminemia. 20.Right sided cp after catheter insertion and correction less discomfort. 21. Decreased edema both lower extremities with [id number] with Pleural and Pericardial effusion. 22. pain syndrome 23.bilateral pleural effusions ; s/p recurrent left thoracentesis Reaccumulation of the pleural fluid. 24. Systolic over diastolic congestive heart failure with a right more than left lower extremity swelling with no DVT in latest venous Doppler. 25. Swelling of the left forearm-persist. Cellulitis of the left forearm with decreased edema anteriorly.-Today it is less edematous 26. Pathologic fracture of the right hip;s/p hemiarthroplasty of right hip . 27. Dizziness 28. Chills. 29. Memory impairment. 30. Upper respiratory infection pharyngitis with dry cough. 31. Decreased voice with wheezing. 32. Headaches 33. Hypokalemia- corrected Result Diagram: 12/02/1843212/02/183 Results 24hrs Laboratory Tests Test 12/02/18 04:33 White Blood Count 4.6 L Red Blood Count 3.40 L Hemoglobin 11.4 L Hematocrit 33.9 L Mean Corpuscular Volume 99.7 Mean Corpuscular Hemoglobin 33.5 H Mean Corpuscular Hemoglobin Concent 33.6 Red Cell Distribution Width 13.5 Platelet Count 185 Mean Platelet Volume 9.4 Immature Granulocytes % 0.200 Neutrophils % 43.8 Lymphocytes % 39.4 Monocytes % 11.8 H Eosinophils % 3.5 Basophils % 1.3 Nucleated Red Blood Cells % 0.0 Immature Granulocytes # 0.010 Neutrophils # 2.0 Lymphocytes # 1.8 Monocytes # 0.5 Eosinophils # 0.2 Basophils # 0.1 Nucleated Red Blood Cells # 0.0 Sodium Level 135 Potassium Level 4.0 Chloride Level 97 Carbon Dioxide Level 33 H Anion Gap 5 Blood Urea Nitrogen 27 H Creatinine 0.85 Est Glomerular Filtrat Rate mL/min > 60 Glucose Level 101 Calcium Level 9.0 Total Bilirubin 0.5 Direct Bilirubin 0.00 Indirect Bilirubin 0.5 Aspartate Amino Transf (AST/SGOT) 42 Alanine Aminotransferase (ALT/SGPT) 41 Alkaline Phosphatase 77 Total Protein 6.0 L Albumin 3.0 L Globulin 3.00 Albumin/Globulin Ratio 1.00 Subjective 24 Hr Interval Summary Free Text/Dictation Worsening of the left forearm pain after room movement. Decrease edema or right leg. On and off chills. Getting dizzy when I am getting up Constitutional: improved; No no complaints, No chills, No diaphoresis, No disoriented, No febrile, No poor po, No requiring IVF, No requiring O2, No other Eyes: No no complaints, No pain, No discharge, No redness, No visual change, No other ENT: No no complaints, No bleeding, No pain, No congestion, No discharge, No dysphagia, No sore throat, No other Respiratory: cough, pleuritic pain, shortness of breath; No no complaints, No pain, No sputum, No wheezing, No other Cardiovascular: chest pain; No no complaints, No edema, No lightheadedness, No orthopenea, No p alpitations, No paroxysmal nocturnal dyspnea, No other Gastrointestinal: constipation, decreased appetite; No no complaints, No pain, No blood, No diarrhea, No flatus, No nausea, No passing stool, No vomiting, No other Genitourinary: dysuria; No no complaints, No bleeding, No discharge, No flank pain, No hematuria, No other Musculoskeletal: back pain, bone/joint pain; No no complaints, No neck pain, No restricted range of motion, No swelling, No other Skin: No no complaints, No bruising, No erythema, No laceration, No pruritis, No rash, No skin lesions, No other Neurologic: dizziness, headache; No no complaints, No confusion, No focal-weakness, No syncope, No seizure, No other Endocrine: No no complaints, No polyuria, No polydypsia, No dry skin, No temp intolerance, No other Lymphatic: No no complaints, No adenopathy, No tender nodes, No lymphadema, No other Psychological: anxiety; No no complaints, No nl mood/affect, No confusion, No depression, No suicidal, No other Immunologic: No no complaints, No immunodeficiency, No pruritis, No rhinitis, No urticaria, No other Exam/Review of Systems Exam Vitals Vital Signs Date Temp Pulse Resp B/P (MAP) Pulse Ox O2 O2 Flow FiO2 Time Delivery Rate 12/02/18 98.4 84 18 97/64 (75) 99 Room Air 07:16 11/28/18 2.0 08:00 Intake and Output 12/01/18 12/01/18 12/02/18 1515:00 23:00 07:00 IntakeIntake Total 660 ml 300 ml BalanceBalance 660 ml 300 ml Constitutional: alert, oriented, well developed, distress, frail, obese Psych: anxiety; No no complaints, No nl mood/affect, No confusion, No depression, No suicidal, No other Head: normocephalic, atraumatic; No lacerations, No hematomas, No other Eyes: EOMI, nl lids, PERRL; No nl conjunctiva, No nl sclera, No icteric, No fundi, disc, No other ENMT: No nl external ears & nose, No nl lips & teeth, No nl nasal mucosa & septum, No mucosa pink and moist, No intubated, No tympanic membranes, No other Neck: bruits, thyromegaly, nuchal rigidity; No supple, No non-tender, No jvd, No masses, No other Respiratory: congested cough, crackles/rales, diminished breath sounds (left more than right .); No clear to auscultation, No normal air movement, No intercostal retraction, No labored breathing, No respirations, No tactile fremitus, No wheezing, No other Cardiovascular: regular rate and rhythm, nl pulses, bruits, edema (right more thasn left(pitting).), systolic murmur; No diastolic murmur, No gallop, No irregular rhythm, No jugular venous distention (JVD), No murmurs/extra sounds, No rub, No S3, No S4, No other Gastrointestinal: soft, nl liver, spleen, non-tender, bowel sounds; No ascites, No distended, No firm, No hepatomegaly, No mass, No rebound or guarding, No splenomegaly, No surgical scars, No tender, No other Genitourinary - Female: No nl adnexae, No nl external genitalia, No CMT, No CVA tenderness, No uterus, No other Musculoskeletal: nl extremities to inspection, joint tenderness Extremities: normal pulses; No calf tenderness, No cyanosis, No clubbing, No edema, No pitting pedal edema, No palpable cord, No tenderness, No other Results Results 24hrs Laboratory Tests Test 12/02/18 04:33 White Blood Count 4.6 L Red Blood Count 3.40 L Hemoglobin 11.4 L Hematocrit 33.9 L Mean Corpuscular Volume 99.7 Mean Corpuscular Hemoglobin 33.5 H Mean Corpuscular Hemoglobin Concent 33.6 Red Cell Distribution Width 13.5 Platelet Count 185 Mean Platelet Volume 9.4 Immature Granulocytes % 0.200 Neutrophils % 43.8 Lymphocytes % 39.4 Monocytes % 11.8 H Eosinophils % 3.5 Basophils % 1.3 Nucleated Red Blood Cells % 0.0 Immature Granulocytes # 0.010 Neutrophils # 2.0 Lymphocytes # 1.8 Monocytes # 0.5 Eosinophils # 0.2 Basophils # 0.1 Nucleated Red Blood Cells # 0.0 Sodium Level 135 Potassium Level 4.0 Chloride Level 97 Carbon Dioxide Level 33 H Anion Gap 5 Blood Urea Nitrogen 27 H Creatinine 0.85 Est Glomerular Filtrat Rate mL/min > 60 Glucose Level 101 Calcium Level 9.0 Total Bilirubin 0.5 Direct Bilirubin 0.00 Indirect Bilirubin 0.5 Aspartate Amino Transf (AST/SGOT) 42 Alanine Aminotransferase (ALT/SGPT) 41 Alkaline Phosphatase 77 Total Protein 6.0 L Albumin 3.0 L Globulin 3.00 Albumin/Globulin Ratio 1.00 Medications Medication Current Medications Morphine Sulfate (morphine) 2 mg Q4H PRN IV SEVERE PAIN LEVEL 7-10 Last administered on 11/24/18 05:31; Admin Dose 2 MG; Start 10/22/18 at 01:30 Phenol (Cepastat Lozenge) 1 lozenge Q1H PRN MT sore throat Last administered on 10/31/18 18:34; Admin Dose 1 LOZENGE; Start 10/27/18 at 21:30 Metolazone (Zaroxolyn) 2.5 mg BID@0530,1730 PO Last administered on 12/02/18 07:00; Admin Dose 2.5 MG; Start 11/01/18 at 05:30 Enoxaparin Sodium (Lovenox) 40 mg DAILY SC Last administered on 11/23/18 09:02; Admin Dose 40 MG; Start 11/02/18 at 09:00; Status Hold Ibuprofen (Motrin) 400 mg Q6H PRN PO MILD PAIN(1-3) OR TEMP>38C Last administered on 11/24/18 08:55; Admin Dose 400 MG; Start 11/07/18 at 12:20 Potassium Chloride (Klor-Con 20) 20 meq BID PO Last administered on 12/01/18 22:00; Admin Dose 20 MEQ; Start 11/11/18 at 09:00 Ondansetron HCl (Zofran Inj) 4 mg Q6H PRN IV NAUSEA AND/OR VOMITING Last administered on 11/19/18 20:21; Admin Dose 4 MG; Start 11/19/18 at 20:30 Bumetanide (Bumex) 0.5 mg DAILY PO Last administered on 12/01/18 10:08; Admin Dose 0.5 MG; Start 11/20/18 at 09:00 Diphenhydramine HCl (Benadryl) 25 mg Q8H PRN PO ITCHING Last administered on 11/30/18 23:27; Admin Dose 25 MG; Start 11/20/18 at 14:00 Bisacodyl (Dulcolax Supp) 10 mg Q8H PRN [place] CONSTIPATION; Start 11/20/18 at 17:30 Guaifenesin/ Codeine Phosphate (Robitussin Ac Liquid Cup) 10 ml Q4H PRN PO COUGH; Start 11/20/18 at 17:30 Magnesium Hydroxide (Milk Of Mag) 30 ml DAILY PRN PO CONSTIPATION Last administered on 11/24/18 08:45; Admin Dose 30 ML; Start 11/20/18 at 17:30 Simethicone (Mylicon) 80 mg Q8H PRN PO INDIGESTION; Start 11/20/18 at 23:30 Escitalopram Oxalate (Lexapro) 10 mg DAILY PO Last administered on 12/01/18 10:08; Admin Dose 10 MG; Start 11/24/18 at 19:00 Anastrozole (Arimidex) 1 mg DAILY PO Last administered on 12/01/18 10:07; Admin Dose 1 MG; Start 11/25/18 at 10:30 Carvedilol (Coreg) 3.125 mg BID PO Last administered on 12/01/18 22:04; Admin Dose 3.125 MG; Start 11/25/18 at 10:30 Docusate Sodium (Colace) 100 mg BID PO Last administered on 12/01/18 22:00; Admin Dose 100 MG; Start 11/25/18 at 10:30 Loratadine (Claritin) 10 mg DAILY PO Last administered on 12/01/18 10:08; Admin Dose 10 MG; Start 11/25/18 at 10:30 Pantoprazole (Protonix Tab) 40 mg AC BREAKFAST PO Last administered on 12/02/18 06:58; Admin Dose 40 MG; Start 11/25/18 at 10:30 Polyethylene Glycol (Miralax) 17 gm DAILY PO Last administered on 12/01/18 10:09; Admin Dose 17 GM; Start 11/25/18 at 10:30 Spironolactone (Aldactone) 50 mg DAILY PO Last administered on 12/01/18 10:09; Admin Dose 50 MG; Start 11/25/18 at 10:30 Diclofenac Sodium (Voltaren 1% Gel) 2 gm QID TP Last administered on 12/01/18 22:03; Admin Dose 2 GM; Start 11/27/18 at 22:00 Miscellaneous Information (*Order Clarification Bulletin) MEDICATION REQUIRES CLARIFICATI... Q8H XX ; Start 12/01/18 at 06:00 Oxycodone HCl (Oxycontin) 20 mg BID PO Last administered on 12/01/18at 22:01; Admin Dose 20 MG; Start 12/01/18 at 09:00 Budesonide (Pulmicort (Neb)) 0.5 mg BID RESP THERAPY PRN HHN WHEEZING; Start 12/01/18 at 13:00 RUSS JEROME MD Dec 02, 2018 08:25
[2018-12-02] MEDS: ESCITALOPRAM 10 MG TAB PO SCH (09:02)
[2018-12-02] MEDS: BUMETANIDE 0.5 MG TAB PO SCH (09:02)
[2018-12-02] MEDS: oxyCODONE (CR) 20 MG TAB [oxyCONTIN] PO SCH ×2 (09:02→20:25)
[2018-12-02] MEDS: SPIRONOLACTONE 50 MG TAB PO SCH (09:02)
[2018-12-02] MEDS: LORATADINE 10 MG TAB PO SCH (09:02)
[2018-12-02] MEDS: DOCUSATE SODIUM 100 MG CAP PO SCH ×2 (09:02→20:24)
[2018-12-02] MEDS: POTASSIUM CHLORIDE (SR) 20 MEQ TAB PO SCH ×2 (09:02→20:24)
[2018-12-02] MEDS: ANASTROZOLE 1 MG TAB PO SCH (09:03)
[2018-12-02] MEDS: POLYETHYLENE GLYCOL 17 GM PACKET PO SCH (09:03)
[2018-12-02] MEDS: DICLOFENAC SODIUM 1% GEL 100 GM TUBE TP SCH ×4 (09:03→20:25)
--- NOTE | 2018-12-02 19:35 | CONS ---
Assessment/Plan Assessment/Plan Hospital Course (Demo Recall) IMPRESSION: 1. Congestive heart failure exacerbation would be diastolic, acute on chronic by most recent echo.-now s/p echo this admit with EF 60/small effusion 2. Abnormal electrocardiogram with low voltage, rule out pericardial effusion. 3. Hypertension-currently borderline hypotension 4. Metastatic breast carcinoma. 5. History of pathologic fractures of the leg, status post open reduction and internal fixation. 6. Anemia. 7. Increased BNP consistent with patient's congestive heart failure. 8. Pericardial effusion-small by echo 9. Edema-LE venous RAMÍREZ neg for DVT 10. Hypokalemia 11.Wrist fracture acute by films 11/20-conservative management at this time 12. Pleural effusion s/p thoracentesis today Recc: -On med-surg -Continued on metolazone and low dose PO bumex and on aldactone with overall reasonable volume status and resolution of much of LLE edema -renal and onc following and now endocrine for bone density -continue low dose coreg -follow K closely which is reasonable today on aldactone -currently conservative management of wrist fracture Consultation Date/Type/Reason Admit Date/Time October 21, 2018 at 17:39 Initial Consult Date 10/21/18 Type of Consult Cardiology Reason for Consultation CHF Requesting Provider: RUSS JEROME MD Date/Time of Note DATE: 12/02/18 TIME: 19:32 Exam/Review of Systems Vital Signs Vitals Vital Signs Date Temp Pulse Resp B/P (MAP) Pulse Ox O2 O2 Flow FiO2 Time Delivery Rate 12/02/18 98.4 84 18 97/64 (75) 99 Room Air 07:16 11/28/18 2.0 08:00 Intake and Output 12/01/18 12/01/18 12/02/18 1515:00 23:00 07:00 IntakeIntake Total 660 ml 300 ml BalanceBalance 660 ml 300 ml Exam Exam Review of Systems: CONSTITUTIONAL: No fevers, chills. PULMONARY: No sob CARDIOVASCULAR: No chest pain/palpitations GASTROINTESTINAL: No nausea/vomiting. GENITOURINARY: No hematuria/dysuria. MUSCULOSKELETAL: No myagias/arthalgias. PSYCHIATRIC: The patient denies depression. NEUROLOGIC: No weakness Constitutional: alert Psych: no complaints ENMT: mucosa pink and moist Neck: supple, jvd Respiratory: diminished breath sounds Cardiovascular: regular rate and rhythm Gastrointestinal: soft, non-tender Musculoskeletal: muscle tone Extremities: edema (none) Labs Result Diagram: 12/02/18 0433 12/02/18 0433 Results 24hrs Laboratory Tests Test 12/02/18 04:33 White Blood Count 4.6 L Red Blood Count 3.40 L Hemoglobin 11.4 L Hematocrit 33.9 L Mean Corpuscular Volume 99.7 Mean Corpuscular Hemoglobin 33.5 H Mean Corpuscular Hemoglobin Concent 33.6 Red Cell Distribution Width 13.5 Platelet Count 185 Mean Platelet Volume 9.4 Immature Granulocytes % 0.200 Neutrophils % 43.8 Lymphocytes % 39.4 Monocytes % 11.8 H Eosinophils % 3.5 Basophils % 1.3 Nucleated Red Blood Cells % 0.0 Immature Granulocytes # 0.010 Neutrophils # 2.0 Lymphocytes # 1.8 Monocytes # 0.5 Eosinophils # 0.2 Basophils # 0.1 Nucleated Red Blood Cells # 0.0 Sodium Level 135 Potassium Level 4.0 Chloride Level 97 Carbon Dioxide Level 33 H Anion Gap 5 Blood Urea Nitrogen 27 H Creatinine 0.85 Est Glomerular Filtrat Rate mL/min > 60 Glucose Level 101 Calcium Level 9.0 Total Bilirubin 0.5 Direct Bilirubin 0.00 Indirect Bilirubin 0.5 Aspartate Amino Transf (AST/SGOT) 42 Alanine Aminotransferase (ALT/SGPT) 41 Alkaline Phosphatase 77 Total Protein 6.0 L Albumin 3.0 L Globulin 3.00 Albumin/Globulin Ratio 1.00 Medications Medications Current Medications Morphine Sulfate (morphine) 2 mg Q4H PRN IV SEVERE PAIN LEVEL 7-10 Last administered on 11/24/18at 05:31; Admin Dose 2 MG; Start 10/22/18 at 01:30 Phenol (Cepastat Lozenge) 1 lozenge Q1H PRN MT sore throat Last administered on 10/31/18at 18:34; Admin Dose 1 LOZENGE; Start 10/27/18 at 21:30 Metolazone (Zaroxolyn) 2.5 mg BID@5330,1730 PO Last administered on 12/02/18at 18:01; Admin Dose 2.5 MG; Start 11/01/18 at 05:30 Enoxaparin Sodium (Lovenox) 40 mg DAILY SC Last administered on 11/23/18at 09:02; Admin Dose 40 MG; Start 11/02/18 at 09:00; Status Hold Ibuprofen (Motrin) 400 mg Q6H PRN PO MILD PAIN(1-3) OR TEMP>38C Last administered on 11/24/18 08:55; Admin Dose 400 MG; Start 11/07/18 at 12:20 Potassium Chloride (Klor-Con 20) 20 meq BID PO Last administered on 12/02/18 09:02; Admin Dose 20 MEQ; Start 11/11/18 at 09:00 Ondansetron HCl (Zofran Inj) 4 mg Q6H PRN IV NAUSEA AND/OR VOMITING Last administered on 11/19/18 20:21; Admin Dose 4 MG; Start 11/19/18 at 20:30 Bumetanide (Bumex) 0.5 mg DAILY PO Last administered on 12/02/18 09:02; Admin Dose 0.5 MG; Start 11/20/18 at 09:00 Diphenhydramine HCl (Benadryl) 25 mg Q8H PRN PO ITCHING Last administered on 11/30/18 23:27; Admin Dose 25 MG; Start 11/20/18 at 14:00 Bisacodyl (Dulcolax Supp) 10 mg Q8H PRN [place] CONSTIPATION; Start 11/20/18 at 17:30 Guaifenesin/ Codeine Phosphate (Robitussin Ac Liquid Cup) 10 ml Q4H PRN PO COUGH; Start 11/20/18 at 17:30 Magnesium Hydroxide (Milk Of Mag) 30 ml DAILY PRN PO CONSTIPATION Last administered on 11/24/18 08:45; Admin Dose 30 ML; Start 11/20/18 at 17:30 Simethicone (Mylicon) 80 mg Q8H PRN PO INDIGESTION; Start 11/20/18 at 23:30 Escitalopram Oxalate (Lexapro) 10 mg DAILY PO Last administered on 12/02/18 09:02; Admin Dose 10 MG; Start 11/24/18 at 19:00 Anastrozole (Arimidex) 1 mg DAILY PO Last administered on 12/02/18 09:03; Admin Dose 1 MG; Start 11/25/18 at 10:30 Carvedilol (Coreg) 3.125 mg BID PO Last administered on 12/01/18 22:04; Admin Dose 3.125 MG; Start 11/25/18 at 10:30 Docusate Sodium (Colace) 100 mg BID PO Last administered on 12/02/18 09:02; Admin Dose 100 MG; Start 11/25/18 at 10:30 Loratadine (Claritin) 10 mg DAILY PO Last administered on 12/02/18 09:02; Admin Dose 10 MG; Start 11/25/18 at 10:30 Pantoprazole (Protonix Tab) 40 mg AC BREAKFAST PO Last administered on 12/02/18at 06:58; Admin Dose 40 MG; Start 11/25/18 at 10:30 Polyethylene Glycol (Miralax) 17 gm DAILY PO Last administered on 12/02/18 09:03; Admin Dose 17 GM; Start 11/25/18 at 10:30 Spironolactone (Aldactone) 50 mg DAILY PO Last administered on 12/02/18 09:02; Admin Dose 50 MG; Start 11/25/18 at 10:30 Diclofenac Sodium (Voltaren 1% Gel) 2 gm QID TP Last administered on 12/02/18 18:01; Admin Dose 2 GM; Start 11/27/18 at 22:00 Miscellaneous Information (*Order Clarification Bulletin) MEDICATION REQUIRES CLARIFICATI... Q8H XX ; Start 12/01/18 at 06:00 Oxycodone HCl (Oxycontin) 20 mg BID PO Last administered on 12/02/18 09:02; Admin Dose 20 MG; Start 12/01/18 at 09:00 Budesonide (Pulmicort (Neb)) 0.5 mg BID RESP THERAPY PRN HHN WHEEZING; Start 12/01/18 at 13:00 KAMILA TERESA Dec 02, 2018 19:35
[2018-12-02] MEDS ORDERED: ZOLPIDEM 5 MG TAB PO PRN (20:00)
[2018-12-02] MEDS: DIPHENHYDRAMINE 25 MG CAP PO PRN (20:26)
[2018-12-02 20:28] VITALS: BP 119/65; PULSE 83
[2018-12-03 02:50] VITALS: BP 116/87; PULSE 78; RESP 17
[2018-12-03] MEDS: PANTOPRAZOLE (EC) 40 MG TAB PO SCH (05:38)
[2018-12-03] MEDS: METOLAZONE 2.5 MG TAB PO SCH ×2 (05:38→17:58)
[2018-12-03 07:16] VITALS: BP 101/62; PULSE 87; RESP 18
[2018-12-03] MEDS: POTASSIUM CHLORIDE (SR) 20 MEQ TAB PO SCH ×2 (09:34→21:00)
[2018-12-03] MEDS: LORATADINE 10 MG TAB PO SCH (09:34)
[2018-12-03] MEDS: SPIRONOLACTONE 50 MG TAB PO SCH (09:34)
[2018-12-03] MEDS: ESCITALOPRAM 10 MG TAB PO SCH (09:34)
[2018-12-03] MEDS: POLYETHYLENE GLYCOL 17 GM PACKET PO SCH (09:35)
[2018-12-03] MEDS: oxyCODONE (CR) 20 MG TAB [oxyCONTIN] PO SCH ×2 (09:35→21:01)
[2018-12-03] MEDS: DOCUSATE SODIUM 100 MG CAP PO SCH ×2 (09:35→21:00)
[2018-12-03] MEDS: DICLOFENAC SODIUM 1% GEL 100 GM TUBE TP SCH ×4 (09:36→21:01)
[2018-12-03] MEDS: BUMETANIDE 0.5 MG TAB PO SCH (09:36)
[2018-12-03] MEDS: ANASTROZOLE 1 MG TAB PO SCH (09:38)
--- NOTE | 2018-12-03 10:13 | CONS ---
Consult Date/Type/Reason Admit Date/Time October 21, 2018 at 17:39 Initial Consult Date 10/21/18 Requesting Provider: RUSS JEROME MD Date/Time of Note DATE: 12/03/18 TIME: 10:11 Subjective NO acute events - pt comfortable, in good spirits - LE edema resolved - remove pleural fluid as needed ROS: No fever, no chills, no nausea, no vomiting, no diarrhea/constipation No recent weight changes No chest pain, no PND, no orthopnea - CHRONIC SOB + fatigue No dizziness, blurred vision No thirst, no heat or cold intolerance Objective Vitals Vital Signs Date Temp Pulse Resp B/P (MAP) Pulse Ox O2 O2 Flow FiO2 Time Delivery Rate 12/03/18 Nasal 2.0 08:00 Cannula 12/03/18 98.1 87 18 101/62 100 07:16 (75) Intake and Output 12/02/18 12/02/18 12/03/18 1515:00 23:00 07:00 IntakeIntake Total 500 ml BalanceBalance 500 ml Exam General: WN/WD/NAD, AOx 3 HEENT: Unicetric/atraumatic/EOMI (follow commands) NECK: JVD elevated, no thyromegaly Lymph: no lymphadenopathy HEART: regular with no S3, II/ systolic murmur at apex LUNGS: Coarse sounds, on R ABD: soft, NT, ND, +BS : Intact Neuro: non focal SKIN: chronic changes EXT: trace edema Results/Medications Result Diagram: 12/03/18 0823 12/02/18 0433 Results 24 hrs Laboratory Tests Test 12/03/18 08:23 White Blood Count 4.1 L Home Meds Reported Medications Tuberculin,Purif.prot.deriv. (Tubersol) 5 Tub Unit/0.1 Ml Vial, 0.1 ML ID, VIAL INJECT QHS EVERY 10 DAYS FOR PPD SCREENING FOR 11 DAYS READ IN 48 HOURS,IF NEGATIVE 2STEP IN 7 DAYS FROM FIRST DOSE. 10/21/18 Acetaminophen* (Tylenol*) 325 Mg Tablet, 650 MG PO Q4H PRN for PAIN LEVEL 1- 10/10, TAB 10/21/18 Spironolactone* (Aldactone*) 50 Mg Tablet, 50 MG PO DAILY, #30 TAB HOLD FOR SBP<110 10/21/18 Simethicone* (Mylicon*) 80 Mg Tab, 80 MG PO Q8H, TAB 10/21/18 Olopatadine* (Patanol* Ophth) 0.1% - 5 Ml Drops, 1 DROP BOTH EYES BID, EA 10/21/18 Hydrocodone/Acetaminophen (Sabine 10-325 Tablet) 1 Each Tablet, 1 EACH PO Q4H, TAB 10/21/18 Loratadine* (Loratadine*) 10 Mg Tablet, 10 MG PO DAILY for FOR 3 MONTHS, #30 TAB 10/21/18 Lidocaine (Lidocaine) 1 Each Adh..patch, 1 EACH TP DAILY 10/21/18 Ipratropium-Albuterol (Ipratropium-Albuterol) 0.5-3 Mg/3 Ml Ampul.neb, 3 ML INHALATION Q8H, #30 VIAL 10/21/18 Furosemide* (Furosemide*) 40 Mg Tablet, 40 MG PO BID, TAB HOLD FOR SBP<110 10/21/18 Na Phos,M-B/Na Phos,Di-Ba (Fleet Enema Extra) Unknown Strength Enema, 1 APPLIC RC NEEDED for CONSTIPATION, ENEMA 10/21/18 Bisacodyl (Dulcolax) 10 Mg Supp.rect, 10 MG RC NEEDED, SUPP.RECT 10/21/18 Potassium Chloride* (Potassium Chloride*) 20 Meq Tablet.er, 20 MEQ PO DAILY, TAB.SA 09/09/18 Pantoprazole* (Pantoprazole*) 40 Mg Tablet.dr, 40 MG PO AC BREAKFAST, TAB 08/22/18 Oxycodone Hcl* (Oxycontin*) 20 Mg Tab.er.12h, 20 MG PO Q12, TAB 08/22/18 Amlodipine Besylate* (Norvasc*) 5 Mg Tablet, 5 MG PO DAILY, TAB HOLD FOR SBP <110. 08/22/18 Polyethylene Glycol* (Miralax*) 17 Gm Powd.pack, 17 GM PO DAILY, #60 PACKET 08/22/18 Magnesium Hydroxide* (Milk Of Magnesia*) 400 Mg/5 Ml Oral.susp, 30 ML PO DAILY, ML 08/22/18 Escitalopram Oxalate* (Lexapro*) 10 Mg Tablet, 10 MG PO DAILY, #30 TAB 08/22/18 Docusate Sodium* (Colace*) 100 Mg Capsule, 100 MG PO BID, #60 CAP 08/22/18 Carvedilol* (Carvedilol*) 3.125 Mg Tablet, 3.125 MG PO BID, #60 TAB HOLD FOR SBP <110 OR SC <60. GIVE WITH FOOD. 08/22/18 Benazepril Hcl* (Benazepril Hcl*) 5 Mg Tablet, 5 MG PO DAILY, #60 TAB HOLD FOR SBP <110. 08/22/18 Anastrozole* (Arimidex*) 1 Mg Tablet, 1 MG PO DAILY, #30 TAB 08/22/18 Medications Current Medications Morphine Sulfate (morphine) 2 mg Q4H PRN IV SEVERE PAIN LEVEL 7-10 Last administered on 11/24/18 05:31; Admin Dose 2 MG; Start 10/22/18 at 01:30 Phenol (Cepastat Lozenge) 1 lozenge Q1H PRN MT sore throat Last administered on 10/31/18 18:34; Admin Dose 1 LOZENGE; Start 10/27/18 at 21:30 Metolazone (Zaroxolyn) 2.5 mg BID@0530,1730 PO Last administered on 12/03/18 05:38; Admin Dose 2.5 MG; Start 11/01/18 at 05:30 Enoxaparin Sodium (Lovenox) 40 mg DAILY SC Last administered on 11/23/18 09:02; Admin Dose 40 MG; Start 11/02/18 at 09:00; Status Hold Ibuprofen (Motrin) 400 mg Q6H PRN PO MILD PAIN(1-3) OR TEMP>38C Last administered on 11/24/18 08:55; Admin Dose 400 MG; Start 11/07/18 at 12:20 Potassium Chloride (Klor-Con 20) 20 meq BID PO Last administered on 12/03/18 09:34; Admin Dose 20 MEQ; Start 11/11/18 at 09:00 Ondansetron HCl (Zofran Inj) 4 mg Q6H PRN IV NAUSEA AND/OR VOMITING Last administered on 11/19/18 20:21; Admin Dose 4 MG; Start 11/19/18 at 20:30 Bumetanide (Bumex) 0.5 mg DAILY PO Last administered on 12/03/18 09:36; Admin Dose 0.5 MG; Start 11/20/18 at 09:00 Diphenhydramine HCl (Benadryl) 25 mg Q8H PRN PO ITCHING Last administered on 12/02/18at 20:26; Admin Dose 25 MG; Start 11/20/18 at 14:00 Bisacodyl (Dulcolax Supp) 10 mg Q8H PRN [place] CONSTIPATION; Start 11/20/18 at 17:30 Guaifenesin/ Codeine Phosphate (Robitussin Ac Liquid Cup) 10 ml Q4H PRN PO COUGH; Start 11/20/18 at 17:30 Magnesium Hydroxide (Milk Of Mag) 30 ml DAILY PRN PO CONSTIPATION Last administered on 11/24/18 08:45; Admin Dose 30 ML; Start 11/20/18 at 17:30 Simethicone (Mylicon) 80 mg Q8H PRN PO INDIGESTION; Start 11/20/18 at 23:30 Escitalopram Oxalate (Lexapro) 10 mg DAILY PO Last administered on 12/03/18 09:34; Admin Dose 10 MG; Start 11/24/18 at 19:00 Anastrozole (Arimidex) 1 mg DAILY PO Last administered on 12/03/18 09:38; Admin Dose 1 MG; Start 11/25/18 at 10:30 Carvedilol (Coreg) 3.125 mg BID PO Last administered on 12/03/18 09:36; Admin Dose 3.125 MG; Start 11/25/18 at 10:30 Docusate Sodium (Colace) 100 mg BID PO Last administered on 12/03/18 09:35; Admin Dose 100 MG; Start 11/25/18 at 10:30 Loratadine (Claritin) 10 mg DAILY PO Last administered on 12/03/18 09:34; Admin Dose 10 MG; Start 11/25/18 at 10:30 Pantoprazole (Protonix Tab) 40 mg AC BREAKFAST PO Last administered on 12/03/18 05:38; Admin Dose 40 MG; Start 11/25/18 at 10:30 Polyethylene Glycol (Miralax) 17 gm DAILY PO Last administered on 12/03/18 09:35; Admin Dose 17 GM; Start 11/25/18 at 10:30 Spironolactone (Aldactone) 50 mg DAILY PO Last administered on 12/03/18at 09:34; Admin Dose 50 MG; Start 11/25/18 at 10:30 Diclofenac Sodium (Voltaren 1% Gel) 2 gm QID TP Last administered on 12/03/18at 09:36; Admin Dose 2 GM; Start 11/27/18 at 22:00 Oxycodone HCl (Oxycontin) 20 mg BID PO Last administered on 12/03/18at 09:35; Admin Dose 20 MG; Start 12/01/18 at 09:00 Budesonide (Pulmicort (Neb)) 0.5 mg BID RESP THERAPY PRN HHN WHEEZING; Start 12/01/18 at 13:00 Zolpidem Tartrate (Ambien) 10 mg HS PRN PO INSOMNIA; Start 12/02/18 at 20:00 Assessment/Plan Hospital Course (Demo Recall) 1. Congestive heart failure exacerbation would be diastolic, acute on chronic by most recent echo.-now s/p echo this admit with EF 60/small effusion - better now, responding to diuresis. BETTER overall- very robust urine output - improv ed CHF. Overall stable. Responded well. Much better overall. 2. Abnormal electrocardiogram with low voltage, rule out pericardial effusion - stable, no signs of tamponade. Treated. Off tele now. NO intervention planned. 3. Hypertension-currently borderline hypotension - treated with meds. BP stable overall. Tolerated Rx well. 4. Metastatic breast carcinoma- responded to chemo per Dr. Fernández - still poor prognosis. 5. History of pathologic fractures of the leg, status post open reduction and internal fixation - pain controlled. 6. Anemia =- Rx per hem-onc team. Rx as needed. 7. Increased BNP consistent with patient's congestive heart failure. 8. Pericardial effusion-small by echo 8. Cough - con't anti-bx now. EMILY NELSON MD Dec 03, 2018 10:13
[2018-12-03] MEDS ORDERED: LIDOCAINE 1% (MPF) 5 ML VIAL ONE (10:29)
[2018-12-03 10:48] VITALS: BP 95/57; PULSE 81; RESP 18
--- NOTE | 2018-12-03 13:30 | PN ---
Date/Time of Note Date/Time of Note DATE: 12/03/18 TIME: 13:25 Assessment/Plan VTE Prophylaxis Risk score (from Ns)>0 risk: 6 SCD applied (from Ns): Yes SCD contraindicated: other (on.) Pharmacological prophylaxis: NA/contraindicated Pharm contraindication: bleeding Lines/Catheters IV Catheter Type [facility]from [facility] port-a-cath Central line still needed: Yes Urinary Cath still in place: No Reason Cath still needed: urinary retention Assessment/Plan Hospital Course Rrecurrent thoracentesis from left pleural cavity.Bronchitis got treated slowly. CHF improved but not totally gone. Continue current chemotherapy bronchodilator therapy correction of fluid his electrolytes and follow the a [facility] for a total synthesis planning. Assessment/Plan 1. PRIMARY ADENOCARCINOMA of the left breast. MULTIPLE BONY METS, PULMONARY METS;LIVER METS CHEMO ON HOLD; PT HAS A VERY GOOD RESPONSE TO CHEMO AND AI 2. Severe pain in the interscapular and lumbar sacral area most probably metastatic lesion possible femoral fracture. pathologic fracture of T9 with 60% of loss of height. Neurosurgical f/u. 3. Obesity. 4. Weight loss 60 pounds during the last 2 years by diet 5. PMS. 6. Myopia. 7. Anemia chronic disease with a drop of her hematocrit to 27; Latest results 28. Will recheck tomorrow;Leukopenia.Thrombocytopenia; 8. Anxiety disorder. Claustrophobia. Increase Ativan to 1 mg every 8 as needed at Lexapro 10 mg daily. 9. Posttraumatic stress disorder. 10. Pain in the left forearm with a history of fracture of ulna and radius. 11. Tachycardia-resolved 12. Hypoxemia at night marginal improved after 2 L of nasal cannula oxygen. 13. Deconditioning 14. 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 MRI: 09/28/18:diffuse osseous metastatic disease with multiple pathologic compression fractures at least involving the T4, T5, T7, T9 and T11 levels. There is likely mild cortical breakthrough at several levels resulting in mild central canal narrowing. No gross evidence of cord compression is seen.. 15. Pain syndrome. Today the most painful zone is in the right hip area. 16. Hyponatremia-corrected; today and hold Aldactone today. 17. Leucopenia-improved. 18. Neutropenia with occasional fever and chills. Last chemotherapy 5 days ago. 19. Hypoalbuminemia. 20.Right sided cp after catheter insertion and correction less discomfort. 21. Decreased edema both lower extremities with [id number] with Pleural and Pericardial effusion. 22. pain syndrome 23.bilateral pleural effusions ; s/p recurrent left thoracentesis Reaccumulation of the pleural fluid. 24. Systolic over diastolic congestive heart failure with a right more than l eft lower extremity swelling with no DVT in latest venous Doppler. 25. Swelling of the left forearm-persist. Cellulitis of the left forearm with decreased edema anteriorly.-Today it is less edematous 26. Pathologic fracture of the right hip;s/p hemiarthroplasty of right hip . 27. Dizziness 28. Chills. 29. Memory impairment. 30. dry cough. 31. Decreased voice with wheezing. 32. Headaches 33. Hypokalemia- corrected 34. Status post recent total synthesis from a left pleural cavity with no immediate complications. Result Diagram: 12/03/18 0823 12/02/18 0433 Results 24hrs Laboratory Tests Test 12/03/18 08:23 White Blood Count 4.1 L Subjective 24 Hr Interval Summary Free Text/Dictation Pain in the left side of her chest in the side of thoracentesis. I cannot breathe deeply. But my breathing had improved. Constitutional: No no complaints, No improved, No chills, No diaphoresis, No disoriented, No febrile, No poor po, No requiring IVF, No requiring O2, No other Eyes: No no complaints, No pain, No discharge, No redness, No visual change, No other ENT: dysphagia, sore throat; No no complaints, No bleeding, No pain, No congestion, No discharge, No other Respiratory: No no complaints, No pain, No cough, No pleuritic pain, No shortness of breath, No sputum, No wheezing, No other Cardiovascular: No no complaints, No chest pain, No edema, No lightheadedness, No orthopenea, No palpitations, No paroxysmal nocturnal dyspnea, No other Gastrointestinal: flatus, nausea; No no complaints, No pain, No blood, No constipation, No decreased appetite, No diarrhea, No passing stool, No vomiting, No other Genitourinary: No no complaints, No bleeding, No dysuria, No discharge, No flank pain, No hematuria, No other Musculoskeletal: back pain, bone/joint pain; No no complaints, No neck pain, No restricted range of motion, No swelling, No other Skin: bruising; No no complaints, No erythema, No laceration, No pruritis, No rash, No skin lesions, No other Neurologic: dizziness, headache; No no complaints, No confusion, No focal-weakness, No syncope, No seizure, No other Exam/Review of Systems Exam Vitals Vital Signs Date Temp Pulse Resp B/P (MAP) Pulse Ox O2 O2 Flow FiO2 Time Delivery Rate 12/03/18 98.0 81 18 95/57 (70) 98 Room Air 10:48 12/03/18 2.0 08:00 Intake and Output 12/02/18 12/02/18 12/03/18 1515:00 23:00 07:00 IntakeIntake Total 500 ml BalanceBalance 500 ml Constitutional: alert, oriented, well developed, distress, frail Psych: anxiety; No no complaints, No nl mood/affect, No confusion, No depression, No suicidal, No other Head: normocephalic, atraumatic Eyes: EOMI, nl lids; No nl conjunctiva, No nl sclera, No PERRL, No icteric, No fundi, disc, No other ENMT: No nl external ears & nose, No nl lips & teeth, No nl nasal mucosa & septum, No mucosa pink and moist, No intubated, No tympanic membranes, No other Neck: No supple, No non-tender, No jvd, No bruits, No masses, No thyromegaly, No nuchal rigidity, No other Respiratory: clear to auscultation, congested cough, crackles/rales, diminished breath sounds; No normal air movement, No intercostal retraction, No labored breathing, No respirations, No tactile fremitus, No wheezing, No other Cardiovascular: regular rate and rhythm, nl pulses, edema, other (On the left posterior chest and the site of the thoracentesis no signs of crepitation.); No bruits, No diastolic murmur, No gallop, No irregular rhythm, No jugular venous distention (JVD), No murmurs/extra sounds, No rub, No systolic murmur, No S3, No S4 Gastrointestinal: soft, nl liver, spleen, bowel sounds; No non-tender, No ascites, No distended, No firm, No hepatomegaly, No mass, No rebound or guarding, No splenomegaly, No surgical scars, No tender, No other Genitourinary - Female: No nl adnexae, No nl external genitalia, No CMT, No CVA tenderness, No uterus, No other Musculoskeletal: joint tenderness, muscle tone, muscle weakness; No nl extremities to inspection, No nl gait and stance, No range of motion, No spine non-tender, No swelling, No other Extremities: normal pulses; No calf tenderness, No cyanosis, No clubbing, No edema, No pitting pedal edema, No palpable cord, No tenderness, No other Results Results 24hrs Laboratory Tests Test 12/03/18 08:23 White Blood Count 4.1 L Medications Medication Current Medications Morphine Sulfate (morphine) 2 mg Q4H PRN IV SEVERE PAIN LEVEL 7-10 Last administered on 11/24/18 05:31; Admin Dose 2 MG; Start 10/22/18 at 01:30 Phenol (Cepastat Lozenge) 1 lozenge Q1H PRN MT sore throat Last administered on 10/31/18 18:34; Admin Dose 1 LOZENGE; Start 10/27/18 at 21:30 Metolazone (Zaroxolyn) 2.5 mg BID@0530,1730 PO Last administered on 12/03/18 05:38; Admin Dose 2.5 MG; Start 11/01/18 at 05:30 Enoxaparin Sodium (Lovenox) 40 mg DAILY SC Last administered on 11/23/18 09:02; Admin Dose 40 MG; Start 11/02/18 at 09:00; Status Hold Ibuprofen (Motrin) 400 mg Q6H PRN PO MILD PAIN(1-3) OR TEMP>38C Last administered on 11/24/18 08:55; Admin Dose 400 MG; Start 11/07/18 at 12:20 Potassium Chloride (Klor-Con 20) 20 meq BID PO Last administered on 12/03/18 09:34; Admin Dose 20 MEQ; Start 11/11/18 at 09:00 Ondansetron HCl (Zofran Inj) 4 mg Q6H PRN IV NAUSEA AND/OR VOMITING Last administered on 11/19/18 20:21; Admin Dose 4 MG; Start 11/19/18 at 20:30 Bumetanide (Bumex) 0.5 mg DAILY PO Last administered on 12/03/18 09:36; Admin Dose 0.5 MG; Start 11/20/18 at 09:00 Diphenhydramine HCl (Benadryl) 25 mg Q8H PRN PO ITCHING Last administered on 12/02/18at 20:26; Admin Dose 25 MG; Start 11/20/18 at 14:00 Bisacodyl (Dulcolax Supp) 10 mg Q8H PRN [place] CONSTIPATION; Start 11/20/18 at 17:30 Guaifenesin/ Codeine Phosphate (Robitussin Ac Liquid Cup) 10 ml Q4H PRN PO COUGH; Start 11/20/18 at 17:30 Magnesium Hydroxide (Milk Of Mag) 30 ml DAILY PRN PO CONSTIPATION Last administered on 11/24/18 08:45; Admin Dose 30 ML; Start 11/20/18 at 17:30 Simethicone (Mylicon) 80 mg Q8H PRN PO INDIGESTION; Start 11/20/18 at 23:30 Escitalopram Oxalate (Lexapro) 10 mg DAILY PO Last administered on 12/03/18 09:34; Admin Dose 10 MG; Start 11/24/18 at 19:00 Anastrozole (Arimidex) 1 mg DAILY PO Last administered on 12/03/18 09:38; Admin Dose 1 MG; Start 11/25/18 at 10:30 Carvedilol (Coreg) 3.125 mg BID PO Last administered on 12/03/18 09:36; Admin Dose 3.125 MG; Start 11/25/18 at 10:30 Docusate Sodium (Colace) 100 mg BID PO Last administered on 12/03/18 09:35; Admin Dose 100 MG; Start 11/25/18 at 10:30 Loratadine (Claritin) 10 mg DAILY PO Last administered on 12/03/18 09:34; Admin Dose 10 MG; Start 11/25/18 at 10:30 Pantoprazole (Protonix Tab) 40 mg AC BREAKFAST PO Last administered on 12/03/18 05:38; Admin Dose 40 MG; Start 11/25/18 at 10:30 Polyethylene Glycol (Miralax) 17 gm DAILY PO Last administered on 12/03/18 09:35; Admin Dose 17 GM; Start 11/25/18 at 10:30 Spironolactone (Aldactone) 50 mg DAILY PO Last administered on 12/03/18at 09:34; Admin Dose 50 MG; Start 11/25/18 at 10:30 Diclofenac Sodium (Voltaren 1% Gel) 2 gm QID TP Last administered on 12/03/18at 09:36; Admin Dose 2 GM; Start 11/27/18 at 22:00 Oxycodone HCl (Oxycontin) 20 mg BID PO Last administered on 12/03/18at 09:35; Admin Dose 20 MG; Start 12/01/18 at 09:00 Budesonide (Pulmicort (Neb)) 0.5 mg BID RESP THERAPY PRN HHN WHEEZING; Start 12/01/18 at 13:00 Zolpidem Tartrate (Ambien) 10 mg HS PRN PO INSOMNIA; Start 12/02/18 at 20:00 RUSS JEROME MD Dec 03, 2018 13:30
[2018-12-03 13:50] VITALS: BP 120/75; PULSE 84; RESP 18
[2018-12-03] MEDS: CIPROFLOXACIN HCL OTIC DROP 0.25 ML LEFT EAR SCH ×2 (15:50→21:00)
--- NOTE | 2018-12-03 15:50 | CONS ---
Assessment/Plan Assessment/Plan Hospital Course (Demo Recall) METASTATIC BREAST CANCER WITH PRIMARY ADENOCARCINOMA IN the left breast. MULTIPLE BONY METS, PULMONARY METS, LIVER METS CHEMO ON HOLD PT HAS A VERY GOOD RESPONSE TO CHEMO AND AI CONT AI FOR NOW CT ABD FOR RESTAGING 08.27.18- noted , stable Leukopenia- post chemo, FLUCTUATING WITH RECENT WORSENING- post NEUPOGEN monitor closely post Neutropenia with occasional fever and chills. - resolved Anemia chronic disease SOB PLEURAL EFFUSIONS, NEG CYTOLOGY POST thoracentesis Fluid overload diuretic cardiology F-UP Severe pain in the interscapular and lumbar sacral area most probably metastatic lesion possible femoral fracture. pathologic fracture of T9 with 60% of loss of height. Bony pain with multiple bony mets post XRT d/w dr Ocampo HYPOKALEMIA- REPLACED Obesity. Weight loss 60 pounds during the last 2 years COUGH, Upper respiratory infection pharyngitis with dry cough. POST ATB PMS. Myopia. Anxiety disorder. Claustrophobia. Posttraumatic stress disorder. Pain in the left forearm with a history of fracture of ulna and radius. Tachycardia Hypoxemia at night marginal improved after 2 L of nasal cannula oxygen. Deconditioning Pain syndrome. Today the most painful zone is in the right hip area. X-ray did not show any fractures. Hyponatremia- resolved Hypoalbuminemia Right sided cp after catheter insertion and correction less discomfort. Decreased edema both lower extremities with hypotension-improving Swelling of the left forearm-persist. Consultation Date/Type/Reason Admit Date/Time October 21, 2018 at 17:39 Initial Consult Date 10/21/18 Type of Consult [facility] Requesting Provider: RUSS JEROME MD Date/Time of Note DATE: 12/03/18 TIME: 15:50 24 HR Interval Summary Free Text/Dictation ALL NOTED D/W PT AND RN Exam/Review of Systems Exam Vitals Vital Signs Date Temp Pulse Resp B/P (MAP) Pulse Ox O2 O2 Flow FiO2 Time Delivery Rate 12/03/18 98.6 84 18 120/75 92 Room Air 13:50 (90) 12/03/18 2.0 08:00 Intake and Output 12/02/18 12/02/18 12/03/18 1515:00 23:00 07:00 IntakeIntake Total 500 ml BalanceBalance 500 ml Exam Constitutional: alert, oriented, well developed, distress, frail; No non-verbal, No obese, No other Psych: nl mood/affect, anxiety, depression; No no complaints, No confusion, No suicidal, No other Head: normocephalic, atraumatic; No lacerations, No hematomas, No other Eyes: EOMI, nl lids, PERRL; No nl conjunctiva, No nl sclera, No icteric, No fundi, disc, No other ENMT: nl lips & teeth, tympanic membranes; No nl external ears & nose, No nl nasal mucosa & septum, No mucosa pink and moist, No intubated, No other Neck: jvd, bruits; No supple, No non-tender, No masses, No thyromegaly, No nuchal rigidity, No other Respiratory: clear to auscultation (Upper parts with pleural friction rub lower parts.), congested cough, diminished breath sounds; No normal air movement, No crackles/rales, No intercostal retraction, No labored breathing, No respirations, No tactile fremitus, No wheezing, No other Cardiovascular: regular rate and rhythm, edema, systolic murmur; No nl pulses, No bruits, No diastolic murmur, No gallop, No irregular rhythm, No jugular venous distention (JVD), No murmurs/extra sounds, No rub, No S3, No S4, No other Gastrointestinal: soft, nl liver, spleen, bowel sounds; No non-tender, No ascites, No distended, No firm, No hepatomegaly, No mass, No rebound or guarding, No splenomegaly, No surgical scars, No tender, No other Musculoskeletal: joint tenderness, muscle tone, muscle weakness; No nl extremities to inspection, No nl gait and stance, No range of motion, No spine non-tender, No swelling, No other Extremities: No normal pulses, No calf tenderness, No cyanosis, No clubbing, No edema, No pitting pedal edema, No palpable cord, No tenderness, No other Neurological: MANAGER EPIC 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; No nl mental status, No nl speech, No nl strength, No confused, No DTR's symmetric, No focal weakness, No lethargic, No numbness, No reflexes, No unresponsive, No other Skin: No nl turgor, No rash or lesions, No diaphoresis, No ecchymosis, No laceration, No puncture, No other Lymph: No nl lymph nodes, No enlarged, No nontender, No other Results Result Diagram: 12/03/18 0823 12/02/18 0433 Results 24hrs Laboratory Tests Test 12/03/18 08:23 White Blood Count 4.1 L Medications Medication Current Medications Morphine Sulfate (morphine) 2 mg Q4H PRN IV SEVERE PAIN LEVEL 7-10 Last administered on 11/24/18 05:31; Admin Dose 2 MG; Start 10/22/18 at 01:30 Phenol (Cepastat Lozenge) 1 lozenge Q1H PRN MT sore throat Last administered on 10/31/18 18:34; Admin Dose 1 LOZENGE; Start 10/27/18 at 21:30 Metolazone (Zaroxolyn) 2.5 mg BID@0530,1730 PO Last administered on 12/03/18 05:38; Admin Dose 2.5 MG; Start 11/01/18 at 05:30 Enoxaparin Sodium (Lovenox) 40 mg DAILY SC Last administered on 11/23/18 09:02; Admin Dose 40 MG; Start 11/02/18 at 09:00; Status Hold Ibuprofen (Motrin) 400 mg Q6H PRN PO MILD PAIN(1-3) OR TEMP>38C Last administered on 11/24/18 08:55; Admin Dose 400 MG; Start 11/07/18 at 12:20 Potassium Chloride (Klor-Con 20) 20 meq BID PO Last administered on 12/03/18 09:34; Admin Dose 20 MEQ; Start 11/11/18 at 09:00 Ondansetron HCl (Zofran Inj) 4 mg Q6H PRN IV NAUSEA AND/OR VOMITING Last administered on 11/19/18 20:21; Admin Dose 4 MG; Start 11/19/18 at 20:30 Bumetanide (Bumex) 0.5 mg DAILY PO Last administered on 12/03/18 09:36; Admin Dose 0.5 MG; Start 11/20/18 at 09:00 Diphenhydramine HCl (Benadryl) 25 mg Q8H PRN PO ITCHING Last administered on 12/02/18 20:26; Admin Dose 25 MG; Start 11/20/18 at 14:00 Bisacodyl (Dulcolax Supp) 10 mg Q8H PRN [place] CONSTIPATION; Start 11/20/18 at 17:30 Guaifenesin/ Codeine Phosphate (Robitussin Ac Liquid Cup) 10 ml Q4H PRN PO COUGH; Start 11/20/18 at 17:30 Magnesium Hydroxide (Milk Of Mag) 30 ml DAILY PRN PO CONSTIPATION Last administered on 11/24/18at 08:45; Admin Dose 30 ML; Start 11/20/18 at 17:30 Simethicone (Mylicon) 80 mg Q8H PRN PO INDIGESTION; Start 11/20/18 at 23:30 Escitalopram Oxalate (Lexapro) 10 mg DAILY PO Last administered on 12/03/18 09:34; Admin Dose 10 MG; Start 11/24/18 at 19:00 Anastrozole (Arimidex) 1 mg DAILY PO Last administered on 12/03/18 09:38; Admin Dose 1 MG; Start 11/25/18 at 10:30 Carvedilol (Coreg) 3.125 mg BID PO Last administered on 12/03/18 09:36; Admin Dose 3.125 MG; Start 11/25/18 at 10:30 Docusate Sodium (Colace) 100 mg BID PO Last administered on 12/03/18 09:35; Admin Dose 100 MG; Start 11/25/18 at 10:30 Loratadine (Claritin) 10 mg DAILY PO Last administered on 12/03/18 09:34; Admin Dose 10 MG; Start 11/25/18 at 10:30 Pantoprazole (Protonix Tab) 40 mg AC BREAKFAST PO Last administered on 12/03/18 05:38; Admin Dose 40 MG; Start 11/25/18 at 10:30 Polyethylene Glycol (Miralax) 17 gm DAILY PO Last administered on 12/03/18 09:35; Admin Dose 17 GM; Start 11/25/18 at 10:30 Spironolactone (Aldactone) 50 mg DAILY PO Last administered on 12/03/18 09:34; Admin Dose 50 MG; Start 11/25/18 at 10:30 Diclofenac Sodium (Voltaren 1% Gel) 2 gm QID TP Last administered on 12/03/18 09:36; Admin Dose 2 GM; Start 11/27/18 at 22:00 Oxycodone HCl (Oxycontin) 20 mg BID PO Last administered on 12/03/18at 09:35; Admin Dose 20 MG; Start 12/01/18 at 09:00 Budesonide (Pulmicort (Neb)) 0.5 mg BID RESP THERAPY PRN HHN WHEEZING; Start 12/01/18 at 13:00 Zolpidem Tartrate (Ambien) 10 mg HS PRN PO INSOMNIA; Start 12/02/18 at 20:00 Ciprofloxacin HCl (Ciprofloxacin HCl Otic) 2 drop BID LEFT EAR ; Start 12/03/18 at 14:00; Stop 12/06/18 at 08:00 Cholecalciferol (Vitamin D) 50,000 unit Q7D PO ; Start 12/03/18 at 16:00; Status UNV Iohexol ((Gastrografin therapeutic equivalent)) Adult Formulation (Ple... GIVE PRIOR TO CT ONCE PO ; Start 12/04/18 at 16:00; Stop 12/04/18 at 16:01; Status UNV DES DUNAWAY MD Dec 03, 2018 15:50
[2018-12-03] MEDS: ERGOCALCIFEROL 50,000 UNIT CAP PO SCH (17:57)
[2018-12-03 20:29] VITALS: BP 101/59; PULSE 81; RESP 20
[2018-12-04] MEDS: morphine 2 MG INJ IV PRN (00:36)
[2018-12-04 02:18] VITALS: BP 114/68; PULSE 83; RESP 18
[2018-12-04] MEDS: METOLAZONE 2.5 MG TAB PO SCH ×2 (06:09→18:24)
[2018-12-04] MEDS: PANTOPRAZOLE (EC) 40 MG TAB PO SCH (06:09)
[2018-12-04 08:30] VITALS: BP 127/74; PULSE 75; RESP 16
[2018-12-04] MEDS: BUMETANIDE 0.5 MG TAB PO SCH (08:44)
[2018-12-04] MEDS: POTASSIUM CHLORIDE (SR) 20 MEQ TAB PO SCH ×2 (08:45→20:31)
[2018-12-04] MEDS: DOCUSATE SODIUM 100 MG CAP PO SCH ×2 (08:45→20:32)
[2018-12-04] MEDS: LORATADINE 10 MG TAB PO SCH (08:45)
[2018-12-04] MEDS: oxyCODONE (CR) 20 MG TAB [oxyCONTIN] PO SCH ×2 (08:45→20:31)
[2018-12-04] MEDS: CIPROFLOXACIN HCL OTIC DROP 0.25 ML LEFT EAR SCH ×2 (08:45→20:37)
[2018-12-04] MEDS: ESCITALOPRAM 10 MG TAB PO SCH (08:45)
[2018-12-04] MEDS: POLYETHYLENE GLYCOL 17 GM PACKET PO SCH (08:45)
[2018-12-04] MEDS: SPIRONOLACTONE 50 MG TAB PO SCH (08:45)
[2018-12-04] MEDS: ANASTROZOLE 1 MG TAB PO SCH (08:47)
[2018-12-04] MEDS: DICLOFENAC SODIUM 1% GEL 100 GM TUBE TP SCH ×4 (08:48→20:32)
[2018-12-04] MEDS ORDERED: IOHEXOL 300MG/ML 150 ML BTL ONE (10:14)
[2018-12-04] MEDS ORDERED: SOD CHLORIDE 0.9% 100 ML ONE (10:14)
[2018-12-04] MEDS ORDERED: LIDOCAINE 1% (MPF) 5 ML VIAL ONE (10:17)
[2018-12-04 11:06] VITALS: BP 102/53; PULSE 88; RESP 18
--- NOTE | 2018-12-04 14:38 | CONS ---
Assessment/Plan Assessment/Plan Hospital Course (Demo Recall) IMPRESSION: 1. Congestive heart failure exacerbation would be diastolic, acute on chronic by most recent echo.-now s/p echo this admit with EF 60/small effusion 2. Abnormal electrocardiogram with low voltage, rule out pericardial effusion. 3. Hypertension-currently borderline hypotension 4. Metastatic breast carcinoma. 5. History of pathologic fractures of the leg, status post open reduction and internal fixation. 6. Anemia. 7. Increased BNP consistent with patient's congestive heart failure. 8. Pericardial effusion-small by echo 9. Edema-LE venous RAMÍREZ neg for DVT 10. Hypokalemia 11.Wrist fracture acute by films 11/20-conservative management at this time 12. Pleural effusion s/p thoracentesis today Recc: -On med-surg -Continued on metolazone and low dose PO bumex and on aldactone with overall reasonable volume status and resolution of much of LLE edema -renal and onc following and now endocrine for bone density -continue low dose coreg -currently conservative management of wrist fracture Consultation Date/Type/Reason Admit Date/Time October 21, 2018 at 17:39 Initial Consult Date 10/21/18 Type of Consult Cardiology Reason for Consultation CHF Requesting Provider: RUSS JEROME MD Date/Time of Note DATE: 12/04/18 TIME: 14:36 Exam/Review of Systems Vital Signs Vitals Vital Signs Date Temp Pulse Resp B/P (MAP) Pulse Ox O2 O2 Flow FiO2 Time Delivery Rate 12/04/18 98.0 88 18 102/53 93 Room Air 11:06 (69) 12/04/18 2.0 08:00 Intake and Output 12/03/18 12/03/18 12/04/18 1515:00 23:00 07:00 IntakeIntake Total 440 ml 200 ml 250 ml OutputOutput Total 2 ml 150 ml 500 ml BalanceBalance 438 ml 50 ml -250 ml Exam Exam Review of Systems: CONSTITUTIONAL: No fevers, chills. PULMONARY: No sob CARDIOVASCULAR: No chest pain/palpitations GASTROINTESTINAL: No nausea/vomiting. GENITOURINARY: No hematuria/dysuria. MUSCULOSKELETAL: No myagias/arthalgias. PSYCHIATRIC: The patient denies depression. NEUROLOGIC: No weakness Constitutional: alert, oriented Psych: no complaints Head: normocephalic ENMT: mucosa pink and moist Neck: supple, jvd (9 cm water) Respiratory: clear to auscultation Cardiovascular: regular rate and rhythm Gastrointestinal: soft, non-tender Extremities: edema (mild assymetric LE edema) Neurological: other (No focal deficits) Labs Result Diagram: 12/04/18 1116 12/02/18 0433 Results 24hrs Laboratory Tests Test 12/04/18 11:16 White Blood Count 4.1 L Medications Medications Current Medications Morphine Sulfate (morphine) 2 mg Q4H PRN IV SEVERE PAIN LEVEL 7-10 Last administered on 12/04/18 00:36; Admin Dose 2 MG; Start 10/22/18 at 01:30 Phenol (Cepastat Lozenge) 1 lozenge Q1H PRN [place] sore throat Last administered on 10/31/18 18:34; Admin Dose 1 LOZENGE; Start 10/27/18 at 21:30 Metolazone (Zaroxolyn) 2.5 mg BID@0530,1730 PO Last administered on 12/04/18 06:09; Admin Dose 2.5 MG; Start 11/01/18 at 05:30 Enoxaparin Sodium (Lovenox) 40 mg DAILY SC Last administered on 11/23/18 09:02; Admin Dose 40 MG; Start 11/02/18 at 09:00; Status Hold Ibuprofen (Motrin) 400 mg Q6H PRN PO MILD PAIN(1-3) OR TEMP>38C Last adminis tered on 11/24/18 08:55; Admin Dose 400 MG; Start 11/07/18 at 12:20 Potassium Chloride (Klor-Con 20) 20 meq BID PO Last administered on 12/04/18at 08:45; Admin Dose 20 MEQ; Start 11/11/18 at 09:00 Ondansetron HCl (Zofran Inj) 4 mg Q6H PRN IV NAUSEA AND/OR VOMITING Last administered on 11/19/18 20:21; Admin Dose 4 MG; Start 11/19/18 at 20:30 Bumetanide (Bumex) 0.5 mg DAILY PO Last administered on 12/04/18 08:44; Admin Dose 0.5 MG; Start 11/20/18 at 09:00 Diphenhydramine HCl (Benadryl) 25 mg Q8H PRN PO ITCHING Last administered on 12/02/18 20:26; Admin Dose 25 MG; Start 11/20/18 at 14:00 Bisacodyl (Dulcolax Supp) 10 mg Q8H PRN [place] CONSTIPATION; Start 11/20/18 at 17:30 Guaifenesin/ Codeine Phosphate (Robitussin Ac Liquid Cup) 10 ml Q4H PRN PO COUGH; Start 11/20/18 at 17:30 Magnesium Hydroxide (Milk Of Mag) 30 ml DAILY PRN PO CONSTIPATION Last administered on 11/24/18 08:45; Admin Dose 30 ML; Start 11/20/18 at 17:30 Simethicone (Mylicon) 80 mg Q8H PRN PO INDIGESTION; Start 11/20/18 at 23:30 Escitalopram Oxalate (Lexapro) 10 mg DAILY PO Last administered on 12/04/18 08:45; Admin Dose 10 MG; Start 11/24/18 at 19:00 Anastrozole (Arimidex) 1 mg DAILY PO Last administered on 12/04/18 08:47; Admin Dose 1 MG; Start 11/25/18 at 10:30 Carvedilol (Coreg) 3.125 mg BID PO Last administered on 12/04/18 08:45; Admin Dose 3.125 MG; Start 11/25/18 at 10:30 Docusate Sodium (Colace) 100 mg BID PO Last administered on 12/04/18 08:45; Admin Dose 100 MG; Start 11/25/18 at 10:30 Loratadine (Claritin) 10 mg DAILY PO Last administered on 12/04/18 08:45; Admin Dose 10 MG; Start 11/25/18 at 10:30 Pantoprazole (Protonix Tab) 40 mg AC BREAKFAST PO Last administered on 12/04/18 06:09; Admin Dose 40 MG; Start 11/25/18 at 10:30 Polyethylene Glycol (Miralax) 17 gm DAILY PO Last administered on 12/04/18 08:45; Admin Dose 17 GM; Start 11/25/18 at 10:30 Spironolactone (Aldactone) 50 mg DAILY PO Last administered on 12/04/18 08:45; Admin Dose 50 MG; Start 11/25/18 at 10:30 Diclofenac Sodium (Voltaren 1% Gel) 2 gm QID TP Last administered on 12/03/18at 21:01; Admin Dose 2 GM; Start 11/27/18 at 22:00 Oxycodone HCl (Oxycontin) 20 mg BID PO Last administered on 12/04/18at 08:45; Admin Dose 20 MG; Start 12/01/18 at 09:00 Budesonide (Pulmicort (Neb)) 0.5 mg BID RESP THERAPY PRN HHN WHEEZING; Start 12/01/18 at 13:00 Zolpidem Tartrate (Ambien) 10 mg HS PRN PO INSOMNIA; Start 12/02/18 at 20:00 Ciprofloxacin HCl (Ciprofloxacin HCl Otic) 2 drop BID LEFT EAR Last administered on 12/04/18at 08:45; Admin Dose 2 DROP; Start 12/03/18 at 14:00; Stop 12/06/18 at 08:00 Ergocalciferol (Drisdol) 50,000 unit Q7D PO Last administered on 12/03/18at 17:57; Admin Dose 50,000 UNIT; Start 12/03/18 at 16:00 Iohexol ((Gastrografin therapeutic equivalent)) 900 ml GIVE PRIOR TO CT ONCE PO ; Start 12/04/18 at 16:00; Stop 12/04/18 at 16:01 KAMILA TERESA Dec 04, 2018 14:38
[2018-12-04 15:22] VITALS: BP 94/53; PULSE 83; RESP 18
[2018-12-04] MEDS ORDERED: IOHEXOL 14.3 MG(I)/ML (ADULT) BTL PO ONE (16:00)
[2018-12-04 20:30] VITALS: BP 100/72; PULSE 81; RESP 19
[2018-12-04 20:34] VITALS: BP 101/61; PULSE 79; RESP 18
--- NOTE | 2018-12-04 21:28 | PN ---
Date/Time of Note Date/Time of Note DATE: 12/04/18 TIME: 21:22 Assessment/Plan VTE Prophylaxis Risk score (from Nsg)>0 risk: 5 SCD applied (from Nsg): Yes SCD contraindicated: other (on.) Pharmacological prophylaxis: LMWH Lines/Catheters IV Catheter Type (from Nrsg): Peripheral IV Central line still needed: Yes Urinary Cath still in place: No Reason Cath still needed: urinary retention Assessment/Plan Hospital Course Rrecurrent thoracentesis from left pleural cavity.Bronchitis got treated slowly. CHF improved but not totally gone. Continue current chemotherapy bronchodilator therapy correction of fluid his electrolytes and follow the algorithm for a total synthesis planning. Assessment/Plan Assessment/Plan 1. PRIMARY ADENOCARCINOMA of the left breast. MULTIPLE BONY METS, PULMONARY METS;LIVER METS CHEMO ON HOLD; PT HAS A VERY GOOD RESPONSE TO CHEMO AND AI 2. Severe pain in the interscapular and lumbar sacral area most probably metastatic lesion possible femoral fracture. pathologic fracture of T9 with 60% of loss of height. Neurosurgical f/u. 3. Obesity. 4. Weight loss 60 pounds during the last 2 years by diet 5. PMS. 6. Myopia. 7. Anemia chronic disease with a drop of her hematocrit to 27; Latest results 28. Will recheck tomorrow;Leukopenia.Thrombocytopenia; 8. Anxiety disorder. Claustrophobia. Increase Ativan to 1 mg every 8 as needed at Lexapro 10 mg daily. 9. Posttraumatic stress disorder. 10. Pain in the left forearm with a history of fracture of ulna and radius. 11. Tachycardia-resolved 12. Hypoxemia at night marginal improved after 2 L of nasal cannula oxygen. 13. Deconditioning 14. 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 MRI: 09/28/18:diffuse osseous metastatic disease with multiple pathologic compression fractures at least involving the T4, T5, T7, T9 and T11 levels. There is likely mild cortical breakthrough at several levels resulting in mild central canal narrowing. No gross evidence of cord compression is seen.. 15. Pain syndrome. Today the most painful zone is in the right hip area. 16. Hyponatremia-corrected; today and hold Aldactone today. 17. Leucopenia-improved. 18. Neutropenia with occasional fever and chills. Last chemotherapy 5 days ago. 19. Hypoalbuminemia. 20.Right sided cp after catheter insertion and correction less discomfort. 21. Decreased edema both lower extremities with [id number] with Pleural and Pericardial effusion. 22. pain syndrome 23.bilateral pleural effusions ; s/p recurrent left thoracentesis Reaccumulation of the pleural fluid. 24. Systolic over diastolic congestive heart failure with a right more than left lower extremity swelling with no DVT in latest venous Doppler. 25. Swelling of the left forearm-persist. Cellulitis of the left forearm with decreased edema anteriorly.-Today it is less edematous 26. Pathologic fracture of the right hip;s/p hemiarthroplasty of right hip . 27. Dizziness 28. Chills. 29. Memory impairment. 30. dry cough. 31. Decreased voice with wheezing. 32. Headaches 33. Hypokalemia- corrected 34. Status post (yesterday) thoracentesis from a left pleural cavity (800cc)with no immediate complications. 35. Status post right thoracentesis and 800 cc removal with no immediate complications. 36.Cholelythiasis 37.Pericardial effusion 38.Pain syndrome. Result Diagram: 12/04/18 1116 12/02/18 0433 Results 24hrs Laboratory Tests Test 12/04/18 11:16 White Blood Count 4.1 L Subjective 24 Hr Interval Summary Free Text/Dictation No A. fib pain in the right side of her chest in the site of thoracentesis. Myah athing improved. I need pain medication. I am afraid to milk alone. We will think is exacerbating the pain. Constitutional: improved, poor po, requiring O2; No no complaints, No chills, No diaphoresis, No disoriented, No febrile, No requiring IVF, No other Eyes: No no complaints, No pain, No discharge, No redness, No visual change, No other ENT: congestion; No no complaints, No bleeding, No pain, No discharge, No dysphagia, No sore throat, No other Respiratory: cough, pleuritic pain, shortness of breath; No no complaints, No pain, No sputum, No wheezing, No other Cardiovascular: No no complaints, No chest pain, No edema, No lightheadedness, No orthopenea, No palpitations, No paroxysmal nocturnal dyspnea, No other Gastrointestinal: constipation, decreased appetite; No no complaints, No pain, No blood, No diarrhea, No flatus, No nausea, No passing stool, No vomiting, No other Genitourinary: dysuria; No no complaints, No bleeding, No discharge, No flank pain, No hematuria, No other Musculoskeletal: back pain, bone/joint pain, neck pain; No no complaints, No restricted range of motion, No swelling, No other Skin: bruising, erythema; No no complaints, No laceration, No pruritis, No rash, No skin lesions, No other Neurologic: confusion, headache; No no complaints, No dizziness, No focal-weakness, No syncope, No seizure, No other Endocrine: No no complaints, No polyuria, No polydypsia, No dry skin, No temp intolerance, No other Lymphatic: No no complaints, No adenopathy, No tender nodes, No lymphadema, No other Psychological: anxiety; No no complaints, No nl mood/affect, No confusion, No depression, No suicidal, No other Immunologic: No no complaints, No immunodeficiency, No pruritis, No rhinitis, No urticaria, No other Exam/Review of Systems Exam Vitals Vital Signs Date Temp Pulse Resp B/P (MAP) Pulse Ox O2 O2 Flow FiO2 Time Delivery Rate 12/04/18 79 18 101/61 Room Air 20:34 (74) 12/04/18 98.3 95 15:22 12/04/18 2.0 08:00 Intake and Output 12/03/18 12/03/18 12/04/18 1515:00 23:00 07:00 IntakeIntake Total 440 ml 200 ml 250 ml OutputOutput Total 2 ml 150 ml 500 ml BalanceBalance 438 ml 50 ml -250 ml Constitutional: alert, oriented, well developed, distress, frail; No non-verbal, No obese, No other Psych: nl mood/affect, anxiety, depression; No no complaints, No confusion, No suicidal, No other Head: normocephalic, atraumatic; No lacerations, No hematomas, No other Eyes: EOMI, nl lids, PERRL; No nl conjunctiva, No nl sclera, No icteric, No fundi, disc, No other ENMT: nl lips & teeth, tympanic membranes; No nl external ears & nose, No nl nasal mucosa & septum, No mucosa pink and moist, No intubated, No other Neck: jvd, bruits; No supple, No non-tender, No masses, No thyromegaly, No nuchal rigidity, No other Respiratory: clear to auscultation (Upper parts with pleural friction rub lower parts.), congested cough, diminished breath sounds; No normal air movement, No crackles/rales, No intercostal retraction, No labored breathing, No respirations, No tactile fremitus, No wheezing, No other Cardiovascular: regular rate and rhythm, edema, systolic murmur; No nl pulses, No bruits, No diastolic murmur, No gallop, No irregular rhythm, No jugular venous distention (JVD), No murmurs/extra sounds, No rub, No S3, No S4, No other Gastrointestinal: soft, nl liver, spleen, bowel sounds; No non-tender, No ascites, No distended, No firm, No hepatomegaly, No mass, No rebound or guarding, No splenomegaly, No surgical scars, No tender, No other Musculoskeletal: joint tenderness, muscle tone, muscle weakness; No nl extremities to inspection, No nl gait and stance, No range of motion, No spine non-tender, No swelling, No other Extremities: No normal pulses, No calf tenderness, No cyanosis, No clubbing, No edema, No pitting pedal edema, No palpable cord, No tenderness, No other 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: 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; No nl mental status, No nl speech, No nl strength, No confused, No DTR's symmetric, No focal weakness, No lethargic, No numbness, No reflexes, No unresponsive, No other Skin: No nl turgor, No rash or lesions, No diaphoresis, No ecchymosis, No laceration, No puncture, No other Lymph: No nl lymph nodes, No enlarged, No nontender, No other Results Results 24hrs Laboratory Tests Test 12/04/18 11:16 White Blood Count 4.1 L Medications Medication Current Medications Morphine Sulfate (morphine) 2 mg Q4H PRN IV SEVERE PAIN LEVEL 7-10 Last administered on 12/04/18at 00:36; Admin Dose 2 MG; Start 10/22/18 at 01:30 Phenol (Cepastat Lozenge) 1 lozenge Q1H PRN MT sore throat Last administered on 10/31/18at 18:34; Admin Dose 1 LOZENGE; Start 10/27/18 at 21:30 Metolazone (Zaroxolyn) 2.5 mg BID@9460,9070 PO Last administered on 12/04/18 18:24; Admin Dose 2.5 MG; Start 11/01/18 at 05:30 Enoxaparin Sodium (Lovenox) 40 mg DAILY SC Last administered on 11/23/18 09:02; Admin Dose 40 MG; Start 11/02/18 at 09:00; Status Hold Ibuprofen (Motrin) 400 mg Q6H PRN PO MILD PAIN(1-3) OR TEMP>38C Last administered on 11/24/18 08:55; Admin Dose 400 MG; Start 11/07/18 at 12:20 Potassium Chloride (Klor-Con 20) 20 meq BID PO Last administered on 12/04/18 20:31; Admin Dose 20 MEQ; Start 11/11/18 at 09:00 Ondansetron HCl (Zofran Inj) 4 mg Q6H PRN IV NAUSEA AND/OR VOMITING Last administered on 11/19/18 20:21; Admin Dose 4 MG; Start 11/19/18 at 20:30 Bumetanide (Bumex) 0.5 mg DAILY PO Last administered on 12/04/18 08:44; Admin Dose 0.5 MG; Start 11/20/18 at 09:00 Diphenhydramine HCl (Benadryl) 25 mg Q8H PRN PO ITCHING Last administered on 12/02/18 20:26; Admin Dose 25 MG; Start 11/20/18 at 14:00 Bisacodyl (Dulcolax Supp) [address] CONSTIPATION; Start 11/20/18 at 17:30 Guaifenesin/ Codeine Phosphate (Robitussin Ac Liquid Cup) 10 ml Q4H PRN PO COUGH; Start 11/20/18 at 17:30 Magnesium Hydroxide (Milk Of Mag) 30 ml DAILY PRN PO CONSTIPATION Last administ ered on 11/24/18 08:45; Admin Dose 30 ML; Start 11/20/18 at 17:30 Simethicone (Mylicon) 80 mg Q8H PRN PO INDIGESTION; Start 11/20/18 at 23:30 Escitalopram Oxalate (Lexapro) 10 mg DAILY PO Last administered on 12/04/18 08:45; Admin Dose 10 MG; Start 11/24/18 at 19:00 Anastrozole (Arimidex) 1 mg DAILY PO Last administered on 12/04/18 08:47; Admin Dose 1 MG; Start 11/25/18 at 10:30 Carvedilol (Coreg) 3.125 mg BID PO Last administered on 12/04/18 20:34; Admin Dose 3.125 MG; Start 11/25/18 at 10:30 Docusate Sodium (Colace) 100 mg BID PO Last administered on 12/04/18 20:32; Admin Dose 100 MG; Start 11/25/18 at 10:30 Loratadine (Claritin) 10 mg DAILY PO Last administered on 12/04/18 08:45; Admin Dose 10 MG; Start 11/25/18 at 10:30 Pantoprazole (Protonix Tab) 40 mg AC BREAKFAST PO Last administered on 12/04/18 06:09; Admin Dose 40 MG; Start 11/25/18 at 10:30 Polyethylene Glycol (Miralax) 17 gm DAILY PO Last administered on 12/04/18 08:45; Admin Dose 17 GM; Start 11/25/18 at 10:30 Spironolactone (Aldactone) 50 mg DAILY PO Last administered on 12/04/18 08:45; Admin Dose 50 MG; Start 11/25/18 at 10:30 Diclofenac Sodium (Voltaren 1% Gel) 2 gm QID TP Last administered on 12/04/18 20:32; Admin Dose 2 GM; Start 11/27/18 at 22:00 Oxycodone HCl (Oxycontin) 20 mg BID PO Last administered on 12/04/18 20:31; Admin Dose 20 MG; Start 12/01/18 at 09:00 Budesonide (Pulmicort (Neb)) 0.5 mg BID RESP THERAPY PRN HHN WHEEZING; Start 12/01/18 at 13:00 Zolpidem Tartrate (Ambien) 10 mg HS PRN PO INSOMNIA; Start 12/02/18 at 20:00 Ciprofloxacin HCl (Ciprofloxacin HCl Otic) 2 drop BID LEFT EAR Last administered on 12/04/18at 20:37; Admin Dose 2 DROP; Start 12/03/18 at 14:00; Stop 12/06/18 at 08:00 Ergocalciferol (Drisdol) 50,000 unit Q7D PO Last administered on 12/03/18at 17:57; Admin Dose 50,000 UNIT; Start 12/03/18 at 16:00 RUSS JEROME MD Dec 04, 2018 21:28
--- NOTE | 2018-12-04 23:43 | CONS ---
Assessment/Plan Assessment/Plan Hospital Course (Demo Recall) METASTATIC BREAST CANCER WITH PRIMARY ADENOCARCINOMA IN the left breast. MULTIPLE BONY METS, PULMONARY METS, LIVER METS CHEMO ON HOLD PT HAS A VERY GOOD RESPONSE TO CHEMO AND AI CONT AI FOR NOW CT ABD FOR RESTAGING 3, 12.04.18 - noted , stable aredia Leukopenia- post chemo, FLUCTUATING WITH RECENT WORSENING- post NEUPOGEN monitor closely post Neutropenia with occasional fever and chills. - resolved Anemia chronic disease SOB PLEURAL EFFUSIONS, NEG CYTOLOGY POST thoracentesis Fluid overload diuretic cardiology F-UP Severe pain in the interscapular and lumbar sacral area most probably metastatic lesion possible femoral fracture. pathologic fracture of T9 with 60% of loss of height. Bony pain with multiple bony mets post XRT d/w dr Ocampo HYPOKALEMIA- REPLACED Obesity. Weight loss 60 pounds during the last 2 years COUGH, Upper respiratory infection pharyngitis with dry cough. POST ATB PMS. Myopia. Anxiety disorder. Claustrophobia. Posttraumatic stress disorder. Pain in the left forearm with a history of fracture of ulna and radius. Tachycardia Hypoxemia at night marginal improved after 2 L of nasal cannula oxygen. Deconditioning Pain syndrome. Today the most painful zone is in the right hip area. X-ray did not show any fractures. Hyponatremia- resolved Hypoalbuminemia Right sided cp after catheter insertion and correction less discomfort. Decreased edema both lower extremities with hypotension-improving Swelling of the left forearm-persist. Consultation Date/Type/Reason Admit Date/Time October 21, 2018 at 17:39 Initial Consult Date 10/21/18 Type of Consult [facility] Requesting Provider: RUSS JEROME MD Date/Time of Note DATE: 12/04/18 TIME: 23:43 24 HR Interval Summary Free Text/Dictation post thoracentesis cytology neg on multiple occasions in the past Exam/Review of Systems Exam Vitals Vital Signs Date Temp Pulse Resp B/P (MAP) Pulse Ox O2 O2 Flow FiO2 Time Delivery Rate 12/04/18 79 18 101/61 Room Air 20:34 (74) 12/04/18 98.2 94 20:30 12/04/18 2.0 08:00 Intake and Output 12/03/18 12/03/18 12/04/18 1515:00 23:00 07:00 IntakeIntake Total 440 ml 200 ml 250 ml OutputOutput Total 2 ml 150 ml 500 ml BalanceBalance 438 ml 50 ml -250 ml Exam Constitutional: alert, oriented, well developed, distress, frail; No non-verbal, No obese, No other Psych: nl mood/affect, anxiety, depression; No no complaints, No confusion, No suicidal, No other Head: normocephalic, atraumatic; No lacerations, No hematomas, No other Eyes: EOMI, nl lids, PERRL; No nl conjunctiva, No nl sclera, No icteric, No fundi, disc, No other ENMT: nl lips & teeth, tympanic membranes; No nl external ears & nose, No nl nasal mucosa & septum, No mucosa pink and moist, No intubated, No other Neck: jvd, bruits; No supple, No non-tender, No masses, No thyromegaly, No nuchal rigidity, No other Respiratory: clear to auscultation (Upper parts with pleural friction rub lower parts.), congested cough, diminished breath sounds; No normal air movement, No crackles/rales, No intercostal retraction, No labored breathing, No respirations, No tactile fremitus, No wheezing, No other Cardiovascular: regular rate and rhythm, edema, systolic murmur; No nl pulses, No bruits, No diastolic murmur, No gallop, No irregular rhythm, No jugular venous distention (JVD), No murmurs/extra sounds, No rub, No S3, No S4, No other Gastrointestinal: soft, nl liver, spleen, bowel sounds; No non-tender, No ascites, No distended, No firm, No hepatomegaly, No mass, No rebound or guarding, No splenomegaly, No surgical scars, No tender, No other Musculoskeletal: joint tenderness, muscle tone, muscle weakness; No nl extremities to inspection, No nl gait and stance, No range of motion, No spine non-tender, No swelling, No other Extremities: No normal pulses, No calf tenderness, No cyanosis, No clubbing, No edema, No pitting pedal edema, No palpable cord, No tenderness, No other 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 CLINICAL INDICATION: Breast cancer. TECHNIQUE: Volumetrically-acquired images of the chest, abdomen and pelvis were obtained following the intravenous administration of 100 cc of Omnipaque-300. Images were then reformatted in the axial, sagittal, and coronal planes. DICOM images are available. CTDIvol = 16.12 mGy; DLP = 1139.85 mGy-cm. One or more of the following dose reduction techniques were utilized: - Automated exposure control. - Adjustment of the mA and/or kV according to patient size. - Use of iterative reconstruction technique. COMPARISON: DR CHEST 12/04/2018; CT 10/21/2018; CT CHESTW 09/14/2018; CT 08/27/2018. FINDINGS: ONCOLOGIC FINDINGS Measurable disease (as per RECIST 1.1) with target lesions as follows: Right hepatic lobe metastasis, segment : 2.5 x 1.4 cm, unchanged. Liver metastasis, segment VIII: 1.4 cm, unchanged. Nonmeasurable disease: Multiple additional small hepatic lesions, unchanged. Diffuse bony metastatic disease, unchanged. New Lesions: None. Additional comments: None ADDITIONAL FINDINGS CT Chest: Lungs: Small bilateral layering pleural effusions have decreased. Scattered atelectatic changes are seen throughout the lung bases and decreased since prior examination. Mediastinum: Unremarkable. Cardiovascular: Mild cardiomegaly. Small pericardial effusion, unchanged to slightly decreased. Right-sided port terminates within the right atrium. Lymph nodes: Scattered small mediastinal and hilar lymph nodes are present and appear grossly unchanged. Additional comments: Diffuse subcutaneous edema. CT Abdomen/Pelvis: Liver: Patent hepatic and portal veins. Biliary: Cholelithiasis. No biliary dilatation. Pancreas: Normal. Spleen: Normal. Adrenal Glands: Normal. Genitourinary: Normal. Gastrointestinal: The stomach is collapsed. The small intestines are unremarkable. The appendix is normal. A moderate volume of stool is seen throughout the colon. Lymph nodes: Shoddy lymph nodes are seen within the retroperitoneum. Vascular: Normal. Peritoneum/mesentery: No free fluid or free air. Reproductive organs: The uterus and adnexa are unremarkable. Musculoskeletal: Right hip arthroplasty. Diffuse skeletal metastases. Multilevel thoracic vertebral body compression fractures are unchanged. Additional comments: None. IMPRESSION: Liver metastases, unchanged. Diffuse bony metastatic disease with multiple pathologic compression fractures of the thoracic spine, unchanged. Small bilateral layering pleural effusions and basilar atelectasis, decreased. Mild cardiomegaly and small pericardial effusion, unchanged to slightly decreased. Medications Medication Current Medications Morphine Sulfate (morphine) 2 mg Q4H PRN IV SEVERE PAIN LEVEL 7-10 Last administered on 12/04/18 00:36; Admin Dose 2 MG; Start 10/22/18 at 01:30 Phenol (Cepastat Lozenge) 1 lozenge Q1H PRN MT sore throat Last administered on 10/31/18 18:34; Admin Dose 1 LOZENGE; Start 10/27/18 at 21:30 Metolazone (Zaroxolyn) 2.5 mg BID@0530,1730 PO Last administered on 12/04/18 18:24; Admin Dose 2.5 MG; Start 11/01/18 at 05:30 Enoxaparin Sodium (Lovenox) 40 mg DAILY SC Last administered on 11/23/18 09:02; Admin Dose 40 MG; Start 11/02/18 at 09:00; Status Hold Ibuprofen (Motrin) 400 mg Q6H PRN PO MILD PAIN(1-3) OR TEMP>38C Last administered on 11/24/18 08:55; Admin Dose 400 MG; Start 11/07/18 at 12:20 Potassium Chloride (Klor-Con 20) 20 meq BID PO Last administered on 12/04/18 20:31; Admin Dose 20 MEQ; Start 11/11/18 at 09:00 Ondansetron HCl (Zofran Inj) 4 mg Q6H PRN IV NAUSEA AND/OR VOMITING Last administered on 11/19/18 20:21; Admin Dose 4 MG; Start 11/19/18 at 20:30 Bumetanide (Bumex) 0.5 mg DAILY PO Last administered on 12/04/18 08:44; Admin Dose 0.5 MG; Start 11/20/18 at 09:00 Diphenhydramine HCl (Benadryl) 25 mg Q8H PRN PO ITCHING Last administered on 12/02/18 20:26; Admin Dose 25 MG; Start 11/20/18 at 14:00 Bisacodyl (Dulcolax Supp) 10 mg Q8H PRN [place] CONSTIPATION; Start 11/20/18 at 17:30 Guaifenesin/ Codeine Phosphate (Robitussin Ac Liquid Cup) 10 ml Q4H PRN PO COUGH; Start 11/20/18 at 17:30 Magnesium Hydroxide (Milk Of Mag) 30 ml DAILY PRN PO CONSTIPATION Last administered on 11/24/18 08:45; Admin Dose 30 ML; Start 11/20/18 at 17:30 Simethicone (Mylicon) 80 mg Q8H PRN PO INDIGESTION; Start 11/20/18 at 23:30 Escitalopram Oxalate (Lexapro) 10 mg DAILY PO Last administered on 12/04/18 08:45; Admin Dose 10 MG; Start 11/24/18 at 19:00 Anastrozole (Arimidex) 1 mg DAILY PO Last administered on 12/04/18 08:47; Admin Dose 1 MG; Start 11/25/18 at 10:30 Carvedilol (Coreg) 3.125 mg BID PO Last administered on 12/04/18 20:34; Admin Dose 3.125 MG; Start 11/25/18 at 10:30 Docusate Sodium (Colace) 100 mg BID PO Last administered on 12/04/18 20:32; Admin Dose 100 MG; Start 11/25/18 at 10:30 Loratadine (Claritin) 10 mg DAILY PO Last administered on 12/04/18 08:45; Admin Dose 10 MG; Start 11/25/18 at 10:30 Pantoprazole (Protonix Tab) 40 mg AC BREAKFAST PO Last administered on 12/04/18 06:09; Admin Dose 40 MG; Start 11/25/18 at 10:30 Polyethylene Glycol (Miralax) 17 gm DAILY PO Last administered on 12/04/18 08:45; Admin Dose 17 GM; Start 11/25/18 at 10:30 Spironolactone (Aldactone) 50 mg DAILY PO Last administered on 12/04/18at 08:45; Admin Dose 50 MG; Start 11/25/18 at 10:30 Diclofenac Sodium (Voltaren 1% Gel) 2 gm QID TP Last administered on 12/04/18at 20:32; Admin Dose 2 GM; Start 11/27/18 at 22:00 Oxycodone HCl (Oxycontin) 20 mg BID PO Last administered on 12/04/18at 20:31; Admin Dose 20 MG; Start 12/01/18 at 09:00 Budesonide (Pulmicort (Neb)) 0.5 mg BID RESP THERAPY PRN HHN WHEEZING; Start 12/01/18 at 13:00 Zolpidem Tartrate (Ambien) 10 mg HS PRN PO INSOMNIA; Start 12/02/18 at 20:00 Ciprofloxacin HCl (Ciprofloxacin HCl Otic) 2 drop BID LEFT EAR Last administered on 12/04/18at 20:37; Admin Dose 2 DROP; Start 12/03/18 at 14:00; Stop 12/06/18 at 08:00 Ergocalciferol (Drisdol) 50,000 unit Q7D PO Last administered on 12/03/18at 17:57; Admin Dose 50,000 UNIT; Start 12/03/18 at 16:00 DES DUNAWAY MD Dec 04, 2018 23:43
[2018-12-04] MEDS ORDERED: FUROSEMIDE 20 MG INJ IV ONE (23:45)
[2018-12-05 02:15] VITALS: BP 113/68; PULSE 86; RESP 19
[2018-12-05] MEDS: DIPHENHYDRAMINE 25 MG CAP PO PRN (05:27)
[2018-12-05 05:29] VITALS: BP 117/71; PULSE 83; RESP 18
[2018-12-05] MEDS: METOLAZONE 2.5 MG TAB PO SCH ×2 (05:29→17:40)
[2018-12-05] MEDS ORDERED: PAMIDRONATE 60 MG in SOD CHLORIDE 0.9% 500 ML IV ONE (08:00)
[2018-12-05 08:26] VITALS: BP 98/57; PULSE 78; RESP 18
[2018-12-05] MEDS: oxyCODONE (CR) 20 MG TAB [oxyCONTIN] PO SCH ×2 (09:13→21:24)
[2018-12-05] MEDS: DOCUSATE SODIUM 100 MG CAP PO SCH ×2 (09:13→21:23)
[2018-12-05] MEDS: ESCITALOPRAM 10 MG TAB PO SCH (09:14)
[2018-12-05] MEDS: POLYETHYLENE GLYCOL 17 GM PACKET PO SCH (09:14)
[2018-12-05] MEDS: PANTOPRAZOLE (EC) 40 MG TAB PO SCH (09:14)
[2018-12-05] MEDS: LORATADINE 10 MG TAB PO SCH (09:15)
[2018-12-05] MEDS: POTASSIUM CHLORIDE (SR) 20 MEQ TAB PO SCH ×2 (09:15→21:24)
[2018-12-05] MEDS: ANASTROZOLE 1 MG TAB PO SCH (09:16)
[2018-12-05] MEDS: SPIRONOLACTONE 50 MG TAB PO SCH (09:16)
[2018-12-05] MEDS: CIPROFLOXACIN HCL OTIC DROP 0.25 ML LEFT EAR SCH ×2 (09:17→21:23)
[2018-12-05] MEDS: BUMETANIDE 0.5 MG TAB PO SCH (09:17)
[2018-12-05] MEDS: DICLOFENAC SODIUM 1% GEL 100 GM TUBE TP SCH ×4 (09:20→21:25)
[2018-12-05] MEDS ORDERED: FUROSEMIDE (10 MG/ML) IV SYG IV ONE (11:00)
--- NOTE | 2018-12-05 12:40 | CONS ---
Assessment/Plan Assessment/Plan Hospital Course (Demo Recall) IMPRESSION: 1. Congestive heart failure exacerbation would be diastolic, acute on chronic by most recent echo.-now s/p echo this admit with EF 60/small effusion 2. Abnormal electrocardiogram with low voltage, rule out pericardial effusion. 3. Hypertension-currently borderline hypotension 4. Metastatic breast carcinoma. 5. History of pathologic fractures of the leg, status post open reduction and internal fixation. 6. Anemia. 7. Increased BNP consistent with patient's congestive heart failure. 8. Pericardial effusion-small by echo 9. Edema-LE venous RAMÍREZ neg for DVT 10. Hypokalemia 11.Wrist fracture acute by films 11/20-conservative management at this time 12. Pleural effusion s/p thoracentesis today Recc: -On med-surg -Continued on metolazone and low dose PO bumex and on aldactone with overall reasonable volume status and resolution of much of LLE edema -renal and onc following and now endocrine for bone density -continue low dose coreg -currently conservative management of wrist fracture Consultation Date/Type/Reason Admit Date/Time October 21, 2018 at 17:39 Initial Consult Date 10/21/18 Type of Consult Cardiology Reason for Consultation CHF Requesting Provider: RUSS JEROME MD Date/Time of Note DATE: 12/05/18 TIME: 12:38 Exam/Review of Systems Vital Signs Vitals Vital Signs Date Temp Pulse Resp B/P (MAP) Pulse Ox O2 O2 Flow FiO2 Time Delivery Rate 12/05/18 98.3 78 18 98/57 (71) 97 Room Air 08:26 12/04/18 2.0 08:00 Intake and Output 12/04/18 12/04/18 12/05/18 1515:00 23:00 07:00 IntakeIntake Total 200 ml 160 ml BalanceBalance 200 ml 160 ml Exam Exam Review of Systems: CONSTITUTIONAL: No fevers, chills. PULMONARY: No sob CARDIOVASCULAR: No chest pain/palpitations GASTROINTESTINAL: No nausea/vomiting. GENITOURINARY: No hematuria/dysuria. MUSCULOSKELETAL: No myagias/arthalgias. PSYCHIATRIC: The patient denies depression. NEUROLOGIC: No weakness Constitutional: alert, oriented Psych: no complaints Head: normocephalic ENMT: mucosa pink and moist Neck: supple, jvd (9 cm water) Respiratory: diminished breath sounds (at bases/B) Cardiovascular: regular rate and rhythm Gastrointestinal: soft, non-tender Musculoskeletal: muscle tone (normal) Extremities: edema (trace R>L) Neurological: other (No focal deficits) Labs Result Diagram: 12/04/18 1116 12/02/18 0433 Medications Medications Current Medications Morphine Sulfate (morphine) 2 mg Q4H PRN IV SEVERE PAIN LEVEL 7-10 Last administered on 12/04/18 00:36; Admin Dose 2 MG; Start 10/22/18 at 01:30 Phenol (Cepastat Lozenge) 1 lozenge Q1H PRN MT sore throat Last administered on 10/31/18 18:34; Admin Dose 1 LOZENGE; Start 10/27/18 at 21:30 Metolazone (Zaroxolyn) 2.5 mg BID@0530,1730 PO Last administered on 12/05/18 05:29; Admin Dose 2.5 MG; Start 11/01/18 at 05:30 Enoxaparin Sodium (Lovenox) 40 mg DAILY SC Last administered on 11/23/18 09:02; Admin Dose 40 MG; Start 11/02/18 at 09:00; Status Hold Ibuprofen (Motrin) 400 mg Q6H PRN PO MILD PAIN(1-3) OR TEMP>38C Last administered on 11/24/18 08:55; Admin Dose 400 MG; Start 11/07/18 at 12:20 Potassium Chloride (Klor-Con 20) 20 meq BID PO Last administered on 12/05/18 09:15; Admin Dose 20 MEQ; Start 11/11/18 at 09:00 Ondansetron HCl (Zofran Inj) 4 mg Q6H PRN IV NAUSEA AND/OR VOMITING Last administered on 11/19/18 20:21; Admin Dose 4 MG; Start 11/19/18 at 20:30 Bumetanide (Bumex) 0.5 mg DAILY PO Last administered on 12/05/18 09:17; Admin Dose 0.5 MG; Start 11/20/18 at 09:00 Diphenhydramine HCl (Benadryl) 25 mg Q8H PRN PO ITCHING Last administered on 12/05/18 05:27; Admin Dose 25 MG; Start 11/20/18 at 14:00 Bisacodyl (Dulcolax Supp) 10 mg Q8H PRN [place] CONSTIPATION; Start 11/20/18 at 17:30 Guaifenesin/ Codeine Phosphate (Robitussin Ac Liquid Cup) 10 ml Q4H PRN PO COUGH; Start 11/20/18 at 17:30 Magnesium Hydroxide (Milk Of Mag) 30 ml DAILY PRN PO CONSTIPATION Last administered on 11/24/18at 08:45; Admin Dose 30 ML; Start 11/20/18 at 17:30 Simethicone (Mylicon) 80 mg Q8H PRN PO INDIGESTION; Start 11/20/18 at 23:30 Escitalopram Oxalate (Lexapro) 10 mg DAILY PO Last administered on 12/05/18 09:14; Admin Dose 10 MG; Start 11/24/18 at 19:00 Anastrozole (Arimidex) 1 mg DAILY PO Last administered on 12/05/18 09:16; Admin Dose 1 MG; Start 11/25/18 at 10:30 Carvedilol (Coreg) 3.125 mg BID PO Last administered on 12/04/18 20:34; Admin Dose 3.125 MG; Start 11/25/18 at 10:30 Docusate Sodium (Colace) 100 mg BID PO Last administered on 12/05/18 09:13; Admin Dose 100 MG; Start 11/25/18 at 10:30 Loratadine (Claritin) 10 mg DAILY PO Last administered on 12/05/18 09:15; Admin Dose 10 MG; Start 11/25/18 at 10:30 Pantoprazole (Protonix Tab) 40 mg AC BREAKFAST PO Last administered on 12/05/18 09:14; Admin Dose 40 MG; Start 11/25/18 at 10:30 Polyethylene Glycol (Miralax) 17 gm DAILY PO Last administered on 12/05/18 09:14; Admin Dose 17 GM; Start 11/25/18 at 10:30 Spironolactone (Aldactone) 50 mg DAILY PO Last administered on 12/05/18 09:16; Admin Dose 50 MG; Start 11/25/18 at 10:30 Diclofenac Sodium (Voltaren 1% Gel) 2 gm QID TP Last administered on 12/05/18at 12:04; Admin Dose 2 GM; Start 11/27/18 at 22:00 Oxycodone HCl (Oxycontin) 20 mg BID PO Last administered on 12/05/18at 09:13; Admin Dose 20 MG; Start 12/01/18 at 09:00 Budesonide (Pulmicort (Neb)) 0.5 mg BID RESP THERAPY PRN HHN WHEEZING; Start 12/01/18 at 13:00 Zolpidem Tartrate (Ambien) 10 mg HS PRN PO INSOMNIA; Start 12/02/18 at 20:00 Ciprofloxacin HCl (Ciprofloxacin HCl Otic) 2 drop BID LEFT EAR Last administered on 12/05/18at 09:17; Admin Dose 2 DROP; Start 12/03/18 at 14:00; Stop 12/06/18 at 08:00 Ergocalciferol (Drisdol) 50,000 unit Q7D PO Last administered on 12/03/18at 17:57; Admin Dose 50,000 UNIT; Start 12/03/18 at 16:00 Pamidronate Disodium 60 mg/ Sodium Chloride 500 ml @ 83.333 mls/ hr Q6H ONCE IV Last administered on 12/05/18at 09:16; Admin Dose 83.333 MLS/HR; Start 12/05/18 at 08:00; Stop 12/05/18 at 13:59 KAMILA TERESA Dec 05, 2018 12:40
[2018-12-05 14:31] VITALS: BP 113/75; PULSE 86; RESP 18
[2018-12-05 20:13] VITALS: BP 118/74; PULSE 88; RESP 20
--- NOTE | 2018-12-05 20:30 | PN ---
Date/Time of Note Date/Time of Note DATE: 12/05/18 TIME: 20:26 Assessment/Plan VTE Prophylaxis Risk score (from Nsg)>0 risk: 8 SCD applied (from Nsg): Yes SCD contraindicated: other (on.) Pharmacological prophylaxis: LMWH Lines/Catheters IV Catheter Type (from Nrsg): PORTACATH Central line still needed: Yes Urinary Cath still in place: No Assessment/Plan Hospital Course Rrecurrent thoracentesis from left pleural cavity.Bronchitis got treated slowly. CHF improved but not totally gone. Continue current chemotherapy bronchodilator therapy correction of fluid his electrolytes and follow the algorithm for a total synthesis planning. Assessment/Plan Rrecurrent thoracentesis from left pleural cavity.Bronchitis got treated slowly. CHF improved but not totally gone. Continue current chemotherapy bro nchodilator therapy correction of fluid his electrolytes and follow the algorithm for a total synthesis planning. Assessment/Plan Assessment/Plan 1. PRIMARY ADENOCARCINOMA of the left breast. MULTIPLE BONY METS, PULMONARY METS;LIVER METS CHEMO ON HOLD; PT HAS A VERY GOOD RESPONSE TO CHEMO AND AI 2. Severe pain in the interscapular and lumbar sacral area most probably metas tatic lesion possible femoral fracture. pathologic fracture of T9 with 60% of loss of height. Neurosurgical f/u. 3. Obesity. 4. Weight loss 60 pounds during the last 2 years by diet 5. PMS. 6. Myopia. 7. Anemia chronic disease with a drop of her hematocrit to 27; Latest results 28. Will recheck tomorrow;Leukopenia.Thrombocytopenia; 8. Anxiety disorder. Claustrophobia. Increase Ativan to 1 mg every 8 as needed at Lexapro 10 mg daily. 9. Posttraumatic stress disorder. 10. Pain in the left forearm with a history of fracture of ulna and radius. 11. Tachycardia-resolved 12. Hypoxemia at night marginal improved after 2 L of nasal cannula oxygen. 13. Deconditioning 14. 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 MRI: 09/28/18:diffuse osseous metastatic disease with multiple pathologic compression fractures at least involving the T4, T5, T7, T9 and T11 levels. There is likely mild cortical breakthrough at several levels resulting in mild central canal narrowing. No gross evidence of cord compression is seen.. 15. Pain syndrome. Today the most painful zone is in the right hip area. 16. Hyponatremia-corrected; today and hold Aldactone today. 17. Leucopenia-improved. 18. Neutropenia with occasional fever and chills. Last chemotherapy 5 days ago. 19. Hypoalbuminemia. 20.Right sided cp after catheter insertion and correction less discomfort. 21. Decreased edema both lower extremities with [id number] with Pleural and Pericardial effusion. 22. pain syndrome 23.bilateral pleural effusions ; s/p recurrent left thoracentesis Reaccumulation of the pleural fluid. 24. Systolic over diastolic congestive heart failure with a right more than left lower extremity swelling with no DVT in latest venous Doppler. 25. Swelling of the left forearm-persist. Cellulitis of the left forearm with decreased edema anteriorly.-Today it is less edematous 26. Pathologic fracture of the right hip;s/p hemiarthroplasty of right hip . 27. Dizziness 28. Chills. 29. Memory impairment. 30. dry cough. 31. Decreased voice with wheezing. 32. Headaches 33. Hypokalemia- corrected 34. Status post (yesterday) thoracentesis from a left pleural cavity ( 800cc)with no immediate complications. 35. Status post right thoracentesis and 800 cc removal with no immediate complications. 36.Cholelythiasis 37.Pericardial effusion 38.Pain syndrome. Result Diagram: 12/04/18 1116 12/02/18 0433 Subjective 24 Hr Interval Summary Free Text/Dictation Pain in the side of total synthesis right more than left. Difficulty to walk secondary to worsening of pain in the right hip area. Increasingly more right more than left lower extremity. Constitutional: improved, chills, poor po, requiring IVF, requiring O2; No no complaints, No diaphoresis, No disoriented, No febrile, No other Eyes: No no complaints, No pain, No discharge, No redness, No visual change, No other ENT: congestion; No no complaints, No bleeding, No pain, No discharge, No dysphagia, No sore throat, No other Respiratory: cough, pleuritic pain, shortness of breath; No no complaints, No pain, No sputum, No wheezing, No other Cardiovascular: chest pain, edema; No no complaints, No lightheadedness, No orthopenea, No palpitations, No paroxysmal nocturnal dyspnea, No other Gastrointestinal: constipation, decreased appetite; No no complaints, No pain, No blood, No diarrhea, No flatus, No nausea, No passing stool, No vomiting, No other Genitourinary: dysuria; No no complaints, No bleeding, No discharge, No flank pain, No hematuria, No other Musculoskeletal: back pain, bone/joint pain, neck pain; No no complaints, No restricted range of motion, No swelling, No other Skin: No no complaints, No bruising, No erythema, No laceration, No pruritis, No rash, No skin lesions, No other Neurologic: dizziness, headache; No no complaints, No confusion, No focal-weakness, No syncope, No seizure, No other Exam/Review of Systems Exam Vitals Vital Signs Date Temp Pulse Resp B/P (MAP) Pulse Ox O2 O2 Flow FiO2 Time Delivery Rate 12/05/18 98.3 88 20 118/74 95 20:13 (89) 12/05/18 Room Air 14:31 12/04/18 2.0 08:00 Intake and Output 12/04/18 12/04/18 12/05/18 1515:00 23:00 07:00 IntakeIntake Total 200 ml 160 ml BalanceBalance 200 ml 160 ml Constitutional: alert, oriented, well developed, distress, frail, obese; No non-verbal, No other Psych: no complaints, anxiety, depression; No nl mood/affect, No confusion, No suicidal, No other Head: normocephalic, atraumatic; No lacerations, No hematomas, No other Eyes: EOMI, nl lids, PERRL; No nl conjunctiva, No nl sclera, No icteric, No fundi, disc, No other ENMT: nl nasal mucosa & septum; No nl external ears & nose, No nl lips & teeth, No mucosa pink and moist, No intubated, No tympanic membranes, No other Neck: bruits, thyromegaly, nuchal rigidity; No supple, No non-tender, No jvd, No masses, No other Respiratory: congested cough, crackles/rales, diminished breath sounds, other (Pleural friction rub right more than left prominent.) Cardiovascular: regular rate and rhythm, nl pulses, edema (Right lower extremity edema that worsened comparing with yesterday.), jugular venous distention (JVD), systolic murmur Gastrointestinal: nl liver, spleen, non-tender, bowel sounds, distended; No soft, No ascites, No firm, No hepatomegaly, No mass, No rebound or guarding, No splenomegaly, No surgical scars, No tender, No other Musculoskeletal: nl gait and stance (Gait is stable needs support at least one person will cover with special accommodations that she can put her left elbow because of the fracture of her left wrist.), joint tenderness, muscle tone, muscle weakness, range of motion; No nl extremities to inspection, No spine non-tender, No swelling, No other Extremities: normal pulses, pitting pedal edema; No calf tenderness, No cyanosis, No clubbing, No edema, No palpable cord, No tenderness, No other Neurological: HOPPER FILLER 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, nl speech, nl strength; No nl mental status, No confused, No DTR's symmetric, No focal weakness, No lethargic, No numbness, No reflexes, No unresponsive, No other Skin: nl turgor; No rash or lesions, No diaphoresis, No ecchymosis, No laceration, No puncture, No other Medications Medication Current Medications Morphine Sulfate (morphine) 2 mg Q4H PRN IV SEVERE PAIN LEVEL 7-10 Last administered on 12/04/18 00:36; Admin Dose 2 MG; Start 10/22/18 at 01:30 Phenol (Cepastat Lozenge) 1 lozenge Q1H PRN [place] sore throat Last administered on 10/31/18 18:34; Admin Dose 1 LOZENGE; Start 10/27/18 at 21:30 Metolazone (Zaroxolyn) 2.5 mg BID@0530,1730 PO Last administered on 12/05/18 17:40; Admin Dose 2.5 MG; Start 11/01/18 at 05:30 Enoxaparin Sodium (Lovenox) 40 mg DAILY SC Last administered on 11/23/18 09:02; Admin Dose 40 MG; Start 11/02/18 at 09:00; Status Hold Ibuprofen (Motrin) 400 mg Q6H PRN PO MILD PAIN(1-3) OR TEMP>38C Last administered on 11/24/18 08:55; Admin Dose 400 MG; Start 11/07/18 at 12:20 Potassium Chloride (Klor-Con 20) 20 meq BID PO Last administered on 12/05/18 09:15; Admin Dose 20 MEQ; Start 11/11/18 at 09:00 Ondansetron HCl (Zofran Inj) 4 mg Q6H PRN IV NAUSEA AND/OR VOMITING Last administered on 11/19/18 20:21; Admin Dose 4 MG; Start 11/19/18 at 20:30 Bumetanide (Bumex) 0.5 mg DAILY PO Last administered on 12/05/18 09:17; Admin Dose 0.5 MG; Start 11/20/18 at 09:00 Diphenhydramine HCl (Benadryl) 25 mg Q8H PRN PO ITCHING Last administered on 12/05/18 05:27; Admin Dose 25 MG; Start 11/20/18 at 14:00 Bisacodyl (Dulcolax Supp) 10 mg Q8H PRN [place] CONSTIPATION; Start 11/20/18 at 17:30 Guaifenesin/ Codeine Phosphate (Robitussin Ac Liquid Cup) 10 ml Q4H PRN PO COUGH; Start 11/20/18 at 17:30 Magnesium Hydroxide (Milk Of Mag) 30 ml DAILY PRN PO CONSTIPATION Last administered on 11/24/18 08:45; Admin Dose 30 ML; Start 11/20/18 at 17:30 Simethicone (Mylicon) 80 mg Q8H PRN PO INDIGESTION; Start 11/20/18 at 23:30 Escitalopram Oxalate (Lexapro) 10 mg DAILY PO Last administered on 12/05/18 09:14; Admin Dose 10 MG; Start 11/24/18 at 19:00 Anastrozole (Arimidex) 1 mg DAILY PO Last administered on 12/05/18 09:16; Admin Dose 1 MG; Start 11/25/18 at 10:30 Carvedilol (Coreg) 3.125 mg BID PO Last administered on 12/04/18 20:34; Admin Dose 3.125 MG; Start 11/25/18 at 10:30 Docusate Sodium (Colace) 100 mg BID PO Last administered on 12/05/18 09:13; Admin Dose 100 MG; Start 11/25/18 at 10:30 Loratadine (Claritin) 10 mg DAILY PO Last administered on 12/05/18 09:15; Admin Dose 10 MG; Start 11/25/18 at 10:30 Pantoprazole (Protonix Tab) 40 mg AC BREAKFAST PO Last administered on 12/05/18 09:14; Admin Dose 40 MG; Start 11/25/18 at 10:30 Polyethylene Glycol (Miralax) 17 gm DAILY PO Last administered on 12/05/18 09:14; Admin Dose 17 GM; Start 11/25/18 at 10:30 Spironolactone (Aldactone) 50 mg DAILY PO Last administered on 12/05/18 09:16; Admin Dose 50 MG; Start 11/25/18 at 10:30 Diclofenac Sodium (Voltaren 1% Gel) 2 gm QID TP Last administered on 12/05/18 17:40; Admin Dose 2 GM; Start 11/27/18 at 22:00 Oxycodone HCl (Oxycontin) 20 mg BID PO Last administered on 12/05/18 09:13; Admin Dose 20 MG; Start 12/01/18 at 09:00 Budesonide (Pulmicort (Neb)) 0.5 mg BID RESP THERAPY PRN HHN WHEEZING; Start 12/01/18 at 13:00 Zolpidem Tartrate (Ambien) 10 mg HS PRN PO INSOMNIA; Start 12/02/18 at 20:00 Ciprofloxacin HCl (Ciprofloxacin HCl Otic) 2 drop BID LEFT EAR Last administered on 12/05/18 09:17; Admin Dose 2 DROP; Start 12/03/18 at 14:00; Stop 12/06/18 at 08:00 Ergocalciferol (Drisdol) 50,000 unit Q7D PO Last administered on 12/03/18at 17:57; Admin Dose 50,000 UNIT; Start 12/03/18 at 16:00 RUSS JEROME MD Dec 05, 2018 20:30
--- NOTE | 2018-12-05 22:52 | CONS ---
Assessment/Plan Assessment/Plan Hospital Course (Demo Recall) METASTATIC BREAST CANCER WITH PRIMARY ADENOCARCINOMA IN the left breast. MULTIPLE BONY METS, PULMONARY METS, LIVER METS CHEMO ON HOLD PT HAS A VERY GOOD RESPONSE TO CHEMO AND AI CONT AI FOR NOW CT ABD FOR RESTAGING 08.27.18, 12.04.18 - noted , stable aredia Leukopenia- post chemo, FLUCTUATING WITH RECENT WORSENING- post NEUPOGEN monitor closely post Neutropenia with occasional fever and chills. - resolved Anemia chronic disease SOB PLEURAL EFFUSIONS, NEG CYTOLOGY POST thoracentesis Fluid overload diuretic cardiology F-UP Severe pain in the interscapular and lumbar sacral area most probably metastatic lesion possible femoral fracture. pathologic fracture of T9 with 60% of loss of height. Bony pain with multiple bony mets post XRT d/w dr Ocampo HYPOKALEMIA- REPLACED Obesity. Weight loss 60 pounds during the last 2 years COUGH, Upper respiratory infection pharyngitis with dry cough. POST ATB PMS. Myopia. Anxiety disorder. Claustrophobia. Posttraumatic stress disorder. Pain in the left forearm with a history of fracture of ulna and radius. Tachycardia Hypoxemia at night marginal improved after 2 L of nasal cannula oxygen. Deconditioning Pain syndrome. Today the most painful zone is in the right hip area. X-ray did not show any fractures. Hyponatremia- resolved Hypoalbuminemia Right sided cp after catheter insertion and correction less discomfort. Decreased edema both lower extremities with hypotension-improving Swelling of the left forearm-persist. Consultation Date/Type/Reason Admit Date/Time October 21, 2018 at 17:39 Initial Consult Date 10/21/18 Type of Consult [facility] Requesting Provider: RUSS JEROME MD Date/Time of Note DATE: 12/05/18 TIME: 22:50 24 HR Interval Summary Free Text/Dictation all noted dd/w DR JEROME POST Right thoracentesis Exam/Review of Systems Exam Vitals Vital Signs Date Temp Pulse Resp B/P (MAP) Pulse Ox O2 O2 Flow FiO2 Time Delivery Rate 12/05/18 98.3 88 20 118/74 95 20:13 (89) 12/05/18 Room Air 14:31 12/04/18 2.0 08:00 Intake and Output 12/04/18 12/04/18 12/05/18 1515:00 23:00 07:00 IntakeIntake Total 200 ml 160 ml BalanceBalance 200 ml 160 ml Exam Constitutional: alert, oriented, well developed, distress, frail; No non-verbal, No obese, No other Psych: nl mood/affect, anxiety, depression; No no complaints, No confusion, No suicidal, No other Head: normocephalic, atraumatic; No lacerations, No hematomas, No other Eyes: EOMI, nl lids, PERRL; No nl conjunctiva, No nl sclera, No icteric, No fundi, disc, No other ENMT: nl lips & teeth, tympanic membranes; No nl external ears & nose, No nl nasal mucosa & septum, No mucosa pink and moist, No intubated, No other Neck: jvd, bruits; No supple, No non-tender, No masses, No thyromegaly, No nuchal rigidity, No other Respiratory: clear to auscultation (Upper parts with pleural friction rub lower parts.), congested cough, diminished breath sounds; No normal air movement, No crackles/rales, No intercostal retraction, No labored breathing, No respirations, No tactile fremitus, No wheezing, No other Cardiovascular: regular rate and rhythm, edema, systolic murmur; No nl pulses, No bruits, No diastolic murmur, No gallop, No irregular rhythm, No jugular venous distention (JVD), No murmurs/extra sounds, No rub, No S3, No S4, No other Gastrointestinal: soft, nl liver, spleen, bowel sounds; No non-tender, No ascites, No distended, No firm, No hepatomegaly, No mass, No rebound or guarding, No splenomegaly, No surgical scars, No tender, No other Musculoskeletal: joint tenderness, muscle tone, muscle weakness; No nl extremities to inspection, No nl gait and stance, No range of motion, No spine non-tender, No swelling, No other Extremities: No normal pulses, No calf tenderness, No cyanosis, No clubbing, No edema, No pitting pedal edema, No palpable cord, No tenderness, No other Neurological: 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; No nl mental status, No nl speech, No nl strength, No confused, No DTR's symmetric, No focal weakness, No lethargic, No numbness, No reflexes, No unresponsive, No other Skin: No nl turgor, No rash or lesions, No diaphoresis, No ecchymosis, No laceration, No puncture, No other Lymph: No nl lymph nodes, No enlarged, No nontender, No other Results Result Diagram: 12/04/18 1116 12/02/18 0433 Medications Medication Current Medications Morphine Sulfate (morphine) 2 mg Q4H PRN IV SEVERE PAIN LEVEL 7-10 Last administered on 12/04/18 00:36; Admin Dose 2 MG; Start 10/22/18 at 01:30 Phenol (Cepastat Lozenge) 1 lozenge Q1H PRN MT sore throat Last administered on 10/31/18 18:34; Admin Dose 1 LOZENGE; Start 10/27/18 at 21:30 Metolazone (Zaroxolyn) 2.5 mg BID@0530,1730 PO Last administered on 12/05/18 17:40; Admin Dose 2.5 MG; Start 11/01/18 at 05:30 Enoxaparin Sodium (Lovenox) 40 mg DAILY SC Last administered on 11/23/18 09:02; Admin Dose 40 MG; Start 11/02/18 at 09:00; Status Hold Ibuprofen (Motrin) 400 mg Q6H PRN PO MILD PAIN(1-3) OR TEMP>38C Last administered on 11/24/18 08:55; Admin Dose 400 MG; Start 11/07/18 at 12:20 Potassium Chloride (Klor-Con 20) 20 meq BID PO Last administered on 12/05/18 21:24; Admin Dose 20 MEQ; Start 11/11/18 at 09:00 Ondansetron HCl (Zofran Inj) 4 mg Q6H PRN IV NAUSEA AND/OR VOMITING Last administered on 11/19/18 20:21; Admin Dose 4 MG; Start 11/19/18 at 20:30 Bumetanide (Bumex) 0.5 mg DAILY PO Last administered on 12/05/18 09:17; Admin Dose 0.5 MG; Start 11/20/18 at 09:00 Diphenhydramine HCl (Benadryl) 25 mg Q8H PRN PO ITCHING Last administered on 12/05/18 05:27; Admin Dose 25 MG; Start 11/20/18 at 14:00 Bisacodyl (Dulcolax Supp) 10 mg Q8H PRN [place] CONSTIPATION; Start 11/20/18 at 17:30 Guaifenesin/ Codeine Phosphate (Robitussin Ac Liquid Cup) 10 ml Q4H PRN PO COUGH; Start 11/20/18 at 17:30 Magnesium Hydroxide (Milk Of Mag) 30 ml DAILY PRN PO CONSTIPATION Last administered on 11/24/18at 08:45; Admin Dose 30 ML; Start 11/20/18 at 17:30 Simethicone (Mylicon) 80 mg Q8H PRN PO INDIGESTION; Start 11/20/18 at 23:30 Escitalopram Oxalate (Lexapro) 10 mg DAILY PO Last administered on 12/05/18 09:14; Admin Dose 10 MG; Start 11/24/18 at 19:00 Anastrozole (Arimidex) 1 mg DAILY PO Last administered on 12/05/18 09:16; Admin Dose 1 MG; Start 11/25/18 at 10:30 Carvedilol (Coreg) 3.125 mg BID PO Last administered on 12/05/18 21:24; Admin Dose 3.125 MG; Start 11/25/18 at 10:30 Docusate Sodium (Colace) 100 mg BID PO Last administered on 12/05/18 21:23; Admin Dose 100 MG; Start 11/25/18 at 10:30 Loratadine (Claritin) 10 mg DAILY PO Last administered on 12/05/18 09:15; Admin Dose 10 MG; Start 11/25/18 at 10:30 Pantoprazole (Protonix Tab) 40 mg AC BREAKFAST PO Last administered on 12/05/18 09:14; Admin Dose 40 MG; Start 11/25/18 at 10:30 Polyethylene Glycol (Miralax) 17 gm DAILY PO Last administered on 12/05/18 09:14; Admin Dose 17 GM; Start 11/25/18 at 10:30 Spironolactone (Aldactone) 50 mg DAILY PO Last administered on 12/05/18 09:16; Admin Dose 50 MG; Start 11/25/18 at 10:30 Diclofenac Sodium (Voltaren 1% Gel) 2 gm QID TP Last administered on 12/05/18 21:25; Admin Dose 2 GM; Start 11/27/18 at 22:00 Oxycodone HCl (Oxycontin) 20 mg BID PO Last administered on 12/05/18at 21:24; Admin Dose 20 MG; Start 12/01/18 at 09:00 Budesonide (Pulmicort (Neb)) 0.5 mg BID RESP THERAPY PRN HHN WHEEZING; Start 12/01/18 at 13:00 Zolpidem Tartrate (Ambien) 10 mg HS PRN PO INSOMNIA; Start 12/02/18 at 20:00 Ciprofloxacin HCl (Ciprofloxacin HCl Otic) 2 drop BID LEFT EAR Last administer ed on 12/05/18at 21:23; Admin Dose 2 DROP; Start 12/03/18 at 14:00; Stop 12/06/18 at 08:00 Ergocalciferol (Drisdol) 50,000 unit Q7D PO Last administered on 12/03/18at 17:57; Admin Dose 50,000 UNIT; Start 12/03/18 at 16:00 DES DUNAWAY MD Dec 05, 2018 22:52
[2018-12-06] MEDS: METOLAZONE 2.5 MG TAB PO SCH ×2 (05:40→17:05)
[2018-12-06] MEDS: PANTOPRAZOLE (EC) 40 MG TAB PO SCH (05:43)
[2018-12-06 08:08] VITALS: BP 97/64; PULSE 84; RESP 18
[2018-12-06] MEDS: POTASSIUM CHLORIDE (SR) 20 MEQ TAB PO SCH ×2 (08:25→22:22)
[2018-12-06] MEDS: SPIRONOLACTONE 50 MG TAB PO SCH (08:25)
[2018-12-06] MEDS: DOCUSATE SODIUM 100 MG CAP PO SCH ×2 (08:25→22:21)
[2018-12-06] MEDS: LORATADINE 10 MG TAB PO SCH (08:25)
[2018-12-06] MEDS: POLYETHYLENE GLYCOL 17 GM PACKET PO SCH (08:26)
[2018-12-06] MEDS: DICLOFENAC SODIUM 1% GEL 100 GM TUBE TP SCH ×4 (08:26→22:22)
[2018-12-06] MEDS: ESCITALOPRAM 10 MG TAB PO SCH (08:26)
[2018-12-06] MEDS: oxyCODONE (CR) 20 MG TAB [oxyCONTIN] PO SCH ×2 (08:26→22:22)
[2018-12-06] MEDS: BUMETANIDE 0.5 MG TAB PO SCH (08:26)
[2018-12-06] MEDS: ANASTROZOLE 1 MG TAB PO SCH (08:28)
--- NOTE | 2018-12-06 08:50 | PN ---
Date/Time of Note Date/Time of Note DATE: 12/06/18 TIME: 08:45 Assessment/Plan VTE Prophylaxis Risk score (from Ns)>0 risk: 13 SCD applied (from Ns): Yes SCD contraindicated: other (on.) Pharmacological prophylaxis: LMWH Lines/Catheters IV Catheter [facility]from [facility]): PORT-A-CATH Central line still needed: Yes Urinary Cath still in place: No Reason Cath still needed: urinary retention Assessment/Plan Hospital Course Rrecurrent thoracentesis from left pleural cavity.Bronchitis got treated slowly. CHF improved but not totally gone. Continue current chemotherapy bronchodilator therapy correction of fluid his electrolytes and follow the algorithm for a total synthesis planning. About 800 cc of right pleural fluid to the creation improved breathing given more but patient is having frequent episodes of hypo-tension. Today the following the patient the last day before going to vacation doctor Deion is going to follow the patient in my absence. I discussed with Dr. Palomino the details of further management. Assessment/Plan Assessment/Plan Hospital Course Rrecurrent thoracentesis from left pleural cavity.Bronchitis got treated slowly. CHF improved but not totally gone. Continue current chemotherapy bronchodilator therapy correction of fluid his electrolytes and follow the algorithm for a total synthesis planning. Assessment/Plan Rrecurrent thoracentesis from left pleural cavity.Bronchitis got treated slowly. CHF improved but not totally gone. Continue current chemotherapy bronchodilator therapy correction of fluid his electrolytes and follow the algorithm for a total synthesis planning. Assessment/Plan Assessment/Plan 1. PRIMARY ADENOCARCINOMA of the left breast. MULTIPLE BONY METS, PULMONARY METS;LIVER METS CHEMO ON HOLD; PT HAS A VERY GOOD RESPONSE TO CHEMO AND AI 2. Severe pain in the interscapular and lumbar sacral area most probably metastatic lesion possible femoral fracture. pathologic fracture of T9 with 60% of loss of height. Neurosurgical f/u. 3. Obesity. 4. Weight loss 60 pounds during the last 2 years by diet 5. PMS. 6. Myopia. 7. Anemia chronic disease with a drop of her hematocrit to 27; Latest results 28. Will recheck tomorrow;Leukopenia.Thrombocytopenia; 8. Anxiety disorder. Claustrophobia. Increase Ativan to 1 mg every 8 as needed at Lexapro 10 mg daily. 9. Posttraumatic stress disorder. 10. Pain in the left forearm with a history of fracture of ulna and radius. 11. Tachycardia-resolved 12. Hypoxemia at night marginal improved after 2 L of nasal cannula oxygen. 13. Deconditioning 14. 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 MRI: 09/28/18:diffuse osseous metastatic disease with multiple pathologic compression fractures at least involving the T4, T5, T7, T9 and T11 levels. There is likely mild cortical breakthrough at several levels resulting in mild central canal narrowing. No gross evidence of cord compression is seen.. 15. Pain syndrome. Today the most painful zone is in the right hip area. 16. Hyponatremia-corrected; today and hold Aldactone today. 17. Leucopenia-improved. 18. Neutropenia with occasional fever and chills. Last chemotherapy 5 days ago. 19. Hypoalbuminemia. 20.Right sided cp after catheter insertion and correction less discomfort. 21. Decreased edema both lower extremities with [id number] with Pleural and Pericardial effusion. 22. pain syndrome 23.bilateral pleural effusions ; s/p recurrent left thoracentesis Reaccumulation of the pleural fluid. 24. Systolic over diastolic congestive heart failure with a right more than left lower extremity swelling with no DVT in latest venous Doppler. 25. Swelling of the left forearm-persist. Cellulitis of the left forearm with decreased edema anteriorly.-Today it is less edematous 26. Pathologic fracture of the right hip;s/p hemiarthroplasty of right hip . 27. Dizziness 28. Chills. 29. Memory impairment. 30. dry cough. 31. Decreased voice with wheezing. 32. Headaches 33. Hypokalemia- corrected 34. Status post (yesterday) thoracentesis from a left pleural cavity (800cc)with no immediate complications. 35. Status post right thoracentesis and 800 cc removal with no immediate complications. 36.Cholelythiasis 37.Pericardial effusion 38.Pain syndrome. Result Diagram: Result Diagram: 12/04/18 1116 12/02/18 0433 CC: ; Subjective 24 Hr Interval Summary Free Text/Dictation Sleeplessness. Bilateral chest pain when breathing deeply. Right hip pain on the left wrist pain particularly when pushing. No fever no chills no nausea vomiting. Constitutional: improved; No no complaints, No chills, No diaphoresis, No disoriented, No febrile, No poor po, No requiring IVF, No requiring O2, No other Eyes: discharge; No no complaints, No pain, No redness, No visual change, No other ENT: No no complaints, No bleeding, No pain, No congestion, No discharge, No dysphagia, No sore throat, No other Respiratory: cough, pleuritic pain, shortness of breath; No no complaints, No pain, No sputum, No wheezing, No other Cardiovascular: chest pain, edema; No no complaints, No lightheadedness, No orthopenea, No palpitations, No paroxysmal nocturnal dyspnea, No other Gastrointestinal: constipation, flatus, nausea; No no complaints, No pain, No blood, No decreased appetite, No diarrhea, No passing stool, No vomiting, No other Genitourinary: dysuria; No no complaints, No bleeding, No discharge, No flank pain, No hematuria, No other Musculoskeletal: back pain, bone/joint pain, neck pain; No no complaints, No restricted range of motion, No swelling, No other Skin: No no complaints, No bruising, No erythema, No laceration, No pruritis, No rash, No skin lesions, No other Neurologic: dizziness, headache; No no complaints, No confusion, No focal-weakness, No syncope, No seizure, No other Endocrine: No no complaints, No polyuria, No polydypsia, No dry skin, No temp intolerance, No other Lymphatic: No no complaints, No adenopathy, No tender nodes, No lymphadema, No other Psychological: anxiety, confusion, depression; No no complaints, No nl mood/affect, No suicidal, No other Exam/Review of Systems Exam Vitals Vital Signs Date Temp Pulse Resp B/P (MAP) Pulse Ox O2 O2 Flow FiO2 Time Delivery Rate 12/06/18 98.5 84 18 97/64 (75) 93 Room Air 08:08 12/04/18 2.0 08:00 Intake and Output 12/05/18 12/05/18 12/06/18 1515:00 23:00 07:00 IntakeIntake Total 400 ml 500 ml BalanceBalance 400 ml 500 ml Constitutional: alert, oriented, well developed, frail; No non-verbal, No distress, No obese, No other Psych: anxiety; No no complaints, No nl mood/affect, No confusion, No depression, No suicidal, No other Head: normocephalic, atraumatic; No lacerations, No hematomas, No other Eyes: EOMI, nl lids, PERRL; No nl conjunctiva, No nl sclera, No icteric, No fundi, disc, No other ENMT: No nl external ears & nose, No nl lips & teeth, No nl nasal mucosa & septum, No mucosa pink and moist, No intubated, No tympanic membranes, No other Neck: bruits, thyromegaly, nuchal rigidity; No supple, No non-tender, No jvd, No masses, No other Respiratory: congested cough; No clear to auscultation, No normal air movement, No crackles/rales, No diminished breath sounds, No intercostal retraction, No labored breathing, No respirations, No tactile fremitus, No wheezing, No other Cardiovascular: nl pulses, bruits, edema; No regular rate and rhythm, No diastolic murmur, No gallop, No irregular rhythm, No jugular venous distention (JVD), No murmurs/extra sounds, No rub, No systolic murmur, No S3, No S4, No other Gastrointestinal: bowel sounds; No soft, No nl liver, spleen, No non-tender, No ascites, No distended, No firm, No hepatomegaly, No mass, No rebound or guarding, No splenomegaly, No surgical scars, No tender, No other Musculoskeletal: joint tenderness, muscle tone, muscle weakness; No nl extremities to inspection, No nl gait and stance, No range of motion, No spine non-tender, No swelling, No other Extremities: edema (Swelling of the left upper extremity and right lower extremity persists.); No normal pulses, No calf tenderness, No cyanosis, No clubbing, No pitting pedal edema, No palpable cord, No tenderness, No other Neurological: 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, numbness; No nl mental status, No nl speech, No nl strength, No confused, No DTR's symmetric, No focal weakness, No lethargic, No reflexes, No unresponsive, No other Skin: nl turgor; No rash or lesions, No diaphoresis, No ecchymosis, No laceration, No puncture, No other Lymph: No nl lymph nodes, No enlarged, No nontender, No other Medications Medication Current Medications Morphine Sulfate (morphine) 2 mg Q4H PRN IV SEVERE PAIN LEVEL 7-10 Last administered on 12/04/18at 00:36; Admin Dose 2 MG; Start 10/22/18 at 01:30 Phenol (Cepastat Lozenge) 1 lozenge Q1H PRN [place] sore throat Last administered on 10/31/18 18:34; Admin Dose 1 LOZENGE; Start 10/27/18 at 21:30 Metolazone (Zaroxolyn) 2.5 mg BID@0530,1730 PO Last administered on 12/06/18 05:40; Admin Dose 2.5 MG; Start 11/01/18 at 05:30 Enoxaparin Sodium (Lovenox) 40 mg DAILY SC Last administered on 11/23/18 09:02; Admin Dose 40 MG; Start 11/02/18 at 09:00; Status Hold Ibuprofen (Motrin) 400 mg Q6H PRN PO MILD PAIN(1-3) OR TEMP>38C Last administered on 11/24/18 08:55; Admin Dose 400 MG; Start 11/07/18 at 12:20 Potassium Chloride (Klor-Con 20) 20 meq BID PO Last administered on 12/06/18 08:25; Admin Dose 20 MEQ; Start 11/11/18 at 09:00 Ondansetron HCl (Zofran Inj) 4 mg Q6H PRN IV NAUSEA AND/OR VOMITING Last administered on 11/19/18 20:21; Admin Dose 4 MG; Start 11/19/18 at 20:30 Bumetanide (Bumex) 0.5 mg DAILY PO Last administered on 12/06/18 08:26; Admin Dose 0.5 MG; Start 11/20/18 at 09:00 Diphenhydramine HCl (Benadryl) 25 mg Q8H PRN PO ITCHING Last administered on 12/05/18 05:27; Admin Dose 25 MG; Start 11/20/18 at 14:00 Bisacodyl (Dulcolax Supp) 10 mg Q8H PRN [place] CONSTIPATION; Start 11/20/18 at 17:30 Guaifenesin/ Codeine Phosphate (Robitussin Ac Liquid Cup) 10 ml Q4H PRN PO COUGH; Start 11/20/18 at 17:30 Magnesium Hydroxide (Milk Of Mag) 30 ml DAILY PRN PO CONSTIPATION Last adm inistered on 11/24/18 08:45; Admin Dose 30 ML; Start 11/20/18 at 17:30 Simethicone (Mylicon) 80 mg Q8H PRN PO INDIGESTION; Start 11/20/18 at 23:30 Escitalopram Oxalate (Lexapro) 10 mg DAILY PO Last administered on 12/06/18 08:26; Admin Dose 10 MG; Start 11/24/18 at 19:00 Anastrozole (Arimidex) 1 mg DAILY PO Last administered on 12/06/18 08:28; Admin Dose 1 MG; Start 11/25/18 at 10:30 Carvedilol (Coreg) 3.125 mg BID PO Last administered on 12/05/18 21:24; Admin Dose 3.125 MG; Start 11/25/18 at 10:30 Docusate Sodium (Colace) 100 mg BID PO Last administered on 12/06/18 08:25; Admin Dose 100 MG; Start 11/25/18 at 10:30 Loratadine (Claritin) 10 mg DAILY PO Last administered on 12/06/18 08:25; Admin Dose 10 MG; Start 11/25/18 at 10:30 Pantoprazole (Protonix Tab) 40 mg AC BREAKFAST PO Last administered on 12/06/18 05:43; Admin Dose 40 MG; Start 11/25/18 at 10:30 Polyethylene Glycol (Miralax) 17 gm DAILY PO Last administered on 12/06/18 08:26; Admin Dose 17 GM; Start 11/25/18 at 10:30 Spironolactone (Aldactone) 50 mg DAILY PO Last administered on 12/06/18 08:25; Admin Dose 50 MG; Start 11/25/18 at 10:30 Diclofenac Sodium (Voltaren 1% Gel) 2 gm QID TP Last administered on 12/06/18 08:26; Admin Dose 2 GM; Start 11/27/18 at 22:00 Oxycodone HCl (Oxycontin) 20 mg BID PO Last administered on 12/06/18 08:26; Admin Dose 20 MG; Start 12/01/18 at 09:00 Budesonide (Pulmicort (Neb)) 0.5 mg BID RESP THERAPY PRN HHN WHEEZING; Start 12/01/18 at 13:00 Zolpidem Tartrate (Ambien) 10 mg HS PRN PO INSOMNIA; Start 12/02/18 at 20:00 Ergocalciferol (Drisdol) 50,000 unit Q7D PO Last administered on 12/03/18at 17:57; Admin Dose 50,000 UNIT; Start 12/03/18 at 16:00 RUSS JEROME MD Dec 06, 2018 08:50
--- NOTE | 2018-12-06 10:50 | DS ---
Date/Time of Note Date/Time of Note DATE: 12/06/18 TIME: 10:47 Discharge Summary Admission/Discharge Info Admit Date/Time october [id number]; 15pm. Discharge Date/Time December 06, 2018 at 16:00 Discharge Diagnosis 1. PRIMARY ADENOCARCINOMA of the left breast. MULTIPLE BONY METS, PULMONARY METS;LIVER METS CHEMO ON HOLD; PT HAS A VERY GOOD RESPONSE TO CHEMO AND AI 2. Severe pain in the interscapular and lumbar sacral area most probably metastatic lesion possible femoral fracture. pathologic fracture of T9 with 60% of loss of height. Neurosurgical f/u. 3. Obesity. 4. Weight loss 60 pounds during the last 2 years by diet 5. PMS. 6. Myopia. 7. Anemia chronic disease with a drop of her hematocrit to 27; Latest results 28. Will recheck tomorrow;Leukopenia.Thrombocytopenia; 8. Anxiety disorder. Claustrophobia. Increase Ativan to 1 mg every 8 as needed at Lexapro 10 mg daily. 9. Posttraumatic stress disorder. 10. Pain in the left forearm with a history of fracture of ulna and radius. 11. Tachycardia 12. Hypoxemia at night marginal improved after 2 L of nasal cannula oxygen. 13. Deconditioning 14. 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 MRI: 09/28/18:diffuse osseous metastatic disease with multiple pathologic compression fractures at least involving the T4, T5, T7, T9 and T11 levels. There is likely mild cortical breakthrough at several levels resulting in mild central canal narrowing. No gross evidence of cord compression is seen.. 15. Pain syndrome. Today the most painful zone is in the right hip area. 16. Hyponatremia-corrected; today and hold Aldactone today. 17. Leucopenia-improved. 18. Neutropenia with occasional fever and chills. Last chemotherapy 5 days ago. 19. Hypoalbuminemia. 20.Right sided cp after catheter insertion and correction less discomfort. 21. Decreased edema both lower extremities with [id number] with Pleural and Pericardial effusion. 22. pain syndrome 23.bilateral pleural effusions ; s/p recurrent left thoracentesis Reaccumulation of the pleural fluid. 24. Systolic over diastolic congestive heart failure with a right more than left lower extremity swelling with no DVT in latest venous Doppler. 25. Swelling of the left forearm-persist. Cellulitis of the left forearm with decreased edema anteriorly.-Today it is less edematous 26. Pathologic fracture of the right hip;s/p hemiarthroplasty of right hip . 27. Dizziness 28. Chills. 29. Memory impairment. 30. Upper respiratory infection pharyngitis with dry cough. 31. Decreased voice with wheezing. 32. Headaches Patient Condition: Guarded Hospital Course Rrecurrent thoracentesis from left pleural cavity.Bronchitis got treated slowly. CHF improved but not totally gone. Continue current chemotherapy bronchodilator therapy correction of fluid his electrolytes and follow the algorithm for a total synthesis planning. About 800 cc of right pleural fluid to the creation improved breathing given more but patient is having frequent episodes of hypo-tension. Today the following the patient the last day before going to vacation doctor Deion is going to follow the patient in my absence. I discussed with Dr. Palomino the details of further management. Home Meds Reported Medications Tuberculin,Purif.prot.deriv. (Tubersol) 5 Tub Unit/0.1 Ml Vial, 0.1 ML ID, VIAL INJECT QHS EVERY 10 DAYS FOR PPD SCREENING FOR 11 DAYS READ IN 48 HOURS,IF NEGATIVE 2STEP IN 7 DAYS FROM FIRST DOSE. 10/21/18 Acetaminophen* (Tylenol*) 325 Mg Tablet, 650 MG PO Q4H PRN for PAIN LEVEL 1- 03/27, TAB 10/21/18 Spironolactone* (Aldactone*) 50 Mg Tablet, 50 MG PO DAILY, #30 TAB HOLD FOR SBP<110 10/21/18 Simethicone* (Mylicon*) 80 Mg Tab, 80 MG PO Q8H, TAB 10/21/18 Olopatadine* (Patanol* Ophth) 0.1% - 5 Ml Drops, 1 DROP BOTH EYES BID, EA 10/21/18 Hydrocodone/Acetaminophen ([place] 10-325 Tablet) 1 Each Tablet, 1 EACH PO Q4H, TAB 10/21/18 Loratadine* (Loratadine*) 10 Mg Tablet, 10 MG PO DAILY for FOR 3 MONTHS, #30 TAB 10/21/18 Lidocaine (Lidocaine) 1 Each Adh..patch, 1 EACH TP DAILY 10/21/18 Ipratropium-Albuterol (Ipratropium-Albuterol) 0.5-3 Mg/3 Ml Ampul.neb, 3 ML INHALATION Q8H, #30 VIAL 10/21/18 Furosemide* (Furosemide*) 40 Mg Tablet, 40 MG PO BID, TAB HOLD FOR SBP<110 10/21/18 Na Phos,M-B/Na Phos,Di-Ba (Fleet Enema Extra) Unknown Strength Enema, 1 APPLIC RC NEEDED for CONSTIPATION, ENEMA 10/21/18 Bisacodyl (Dulcolax) 10 Mg Supp.rect, 10 MG RC NEEDED, SUPP.RECT 10/21/18 Potassium Chloride* (Potassium Chloride*) 20 Meq Tablet.er, 20 MEQ PO DAILY, TAB.SA 09/09/18 Pantoprazole* (Pantoprazole*) 40 Mg Tablet.dr, 40 MG PO AC BREAKFAST, TAB 08/22/18 Oxycodone Hcl* (Oxycontin*) 20 Mg Tab.er.12h, 20 MG PO Q12, TAB 08/22/18 Amlodipine Besylate* (Norvasc*) 5 Mg Tablet, 5 MG PO DAILY, TAB HOLD FOR SBP <110. 08/22/18 Polyethylene Glycol* (Miralax*) 17 Gm Powd.pack, 17 GM PO DAILY, #60 PACKET 08/22/18 Magnesium Hydroxide* (Milk Of Magnesia*) 400 Mg/5 Ml Oral.susp, 30 ML PO DAILY, ML 08/22/18 Escitalopram Oxalate* (Lexapro*) 10 Mg Tablet, 10 MG PO DAILY, #30 TAB 08/22/18 Docusate Sodium* (Colace*) 100 Mg Capsule, 100 MG PO BID, #60 CAP 08/22/18 Carvedilol* (Carvedilol*) 3.125 Mg Tablet, 3.125 MG PO BID, #60 TAB HOLD FOR SBP <110 OR SD <60. GIVE WITH FOOD. 08/22/18 Benazepril Hcl* (Benazepril Hcl*) 5 Mg Tablet, 5 MG PO DAILY, #60 TAB HOLD FOR SBP <110. 08/22/18 Anastrozole* (Arimidex*) 1 Mg Tablet, 1 MG PO DAILY, #30 TAB 08/22/18 Follow-up Plan [facility] will follow the patient until I return 12/22/2018 from vacation. Primary Care Provider MD JUSTUS Dodd VAGHARSHAK MD Dec 06, 2018 10:50
--- NOTE | 2018-12-06 11:20 | CONS ---
Assessment/Plan Assessment/Plan Hospital Course (Demo Recall) METASTATIC BREAST CANCER WITH PRIMARY ADENOCARCINOMA IN the left breast. MULTIPLE BONY METS, PULMONARY METS, LIVER METS CHEMO ON HOLD PT HAS A VERY GOOD RESPONSE TO CHEMO AND AI CONT AI FOR NOW CT ABD FOR RESTAGING 08.27.18, 12.04.18 - noted , stable aredia Leukopenia- post chemo, FLUCTUATING WITH RECENT WORSENING- post NEUPOGEN monitor closely post Neutropenia with occasional fever and chills. - resolved Anemia chronic disease SOB PLEURAL EFFUSIONS, NEG CYTOLOGY POST thoracentesis Fluid overload diuretic cardiology F-UP Severe pain in the interscapular and lumbar sacral area most probably metastatic lesion possible femoral fracture. pathologic fracture of T9 with 60% of loss of height. Bony pain with multiple bony mets post XRT d/w dr Ocampo HYPOKALEMIA- REPLACED Obesity. Weight loss 60 pounds during the last 2 years COUGH, Upper respiratory infection pharyngitis with dry cough. POST ATB PMS. Myopia. Anxiety disorder. Claustrophobia. Posttraumatic stress disorder. Pain in the left forearm with a history of fracture of ulna and radius. Tachycardia Hypoxemia at night marginal improved after 2 L of nasal cannula oxygen. Deconditioning Pain syndrome. Today the most painful zone is in the right hip area. X-ray did not show any fractures. Hyponatremia- resolved Hypoalbuminemia Right sided cp after catheter insertion and correction less discomfort. Decreased edema both lower extremities with hypotension-improving Swelling of the left forearm-persist. Consultation Date/Type/Reason Admit Date/Time October 21, 2018 at 17:39 Initial Consult Date 10/21/18 Type of Consult [facility] Requesting Provider: RUSS JEROME MD Date/Time of Note DATE: 12/06/18 TIME: 11:20 24 HR Interval Summary Free Text/Dictation all noted d/w pt Exam/Review of Systems Exam Vitals Vital Signs Date Temp Pulse Resp B/P (MAP) Pulse Ox O2 O2 Flow FiO2 Time Delivery Rate 12/06/18 98.5 84 18 97/64 (75) 93 Room Air 08:08 12/04/18 2.0 08:00 Intake and Output 12/05/18 12/05/18 12/06/18 1515:00 23:00 07:00 IntakeIntake Total 400 ml 500 ml BalanceBalance 400 ml 500 ml Exam Constitutional: alert, oriented, well developed, distress, frail; No non-verbal, No obese, No other Psych: nl mood/affect, anxiety, depression; No no complaints, No confusion, No suicidal, No other Head: normocephalic, atraumatic; No lacerations, No hematomas, No other Eyes: EOMI, nl lids, PERRL; No nl conjunctiva, No nl sclera, No icteric, No fundi, disc, No other ENMT: nl lips & teeth, tympanic membranes; No nl external ears & nose, No nl nasal mucosa & septum, No mucosa pink and moist, No intubated, No other Neck: jvd, bruits; No supple, No non-tender, No masses, No thyromegaly, No nuchal rigidity, No other Respiratory: clear to auscultation (Upper parts with pleural friction rub lower parts.), congested cough, diminished breath sounds; No normal air movement, No crackles/rales, No intercostal retraction, No labored breathing, No respirations, No tactile fremitus, No wheezing, No other Cardiovascular: regular rate and rhythm, edema, systolic murmur; No nl pulses, No bruits, No diastolic murmur, No gallop, No irregular rhythm, No jugular venous distention (JVD), No murmurs/extra sounds, No rub, No S3, No S4, No other Gastrointestinal: soft, nl liver, spleen, bowel sounds; No non-tender, No ascites, No distended, No firm, No hepatomegaly, No mass, No rebound or guarding, No splenomegaly, No surgical scars, No tender, No other Musculoskeletal: joint tenderness, muscle tone, muscle weakness; No nl extremities to inspection, No nl gait and stance, No range of motion, No spine non-tender, No swelling, No other Extremities: No normal pulses, No calf tenderness, No cyanosis, No clubbing, No edema, No pitting pedal edema, No palpable cord, No tenderness, No other Neurological: BICYCLE SUBASSEMBLER 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; No nl mental status, No nl speech, No nl strength, No confused, No DTR's symmetric, No focal weakness, No lethargic, No numbness, No reflexes, No unresponsive, No other Skin: No nl turgor, No rash or lesions, No diaphoresis, No ecchymosis, No laceration, No puncture, No other Lymph: No nl lymph nodes, No enlarged, No nontender, No other Results Result Diagram: 12/04/18 1116 12/02/18 0433 Medications Medication Current Medications Morphine Sulfate (morphine) 2 mg Q4H PRN IV SEVERE PAIN LEVEL 7-10 Last administered on 12/04/18 00:36; Admin Dose 2 MG; Start 10/22/18 at 01:30 Phenol (Cepastat Lozenge) 1 lozenge Q1H PRN MT sore throat Last administered on 10/31/18 18:34; Admin Dose 1 LOZENGE; Start 10/27/18 at 21:30 Metolazone (Zaroxolyn) 2.5 mg BID@0530,1730 PO Last administered on 12/06/18 05:40; Admin Dose 2.5 MG; Start 11/01/18 at 05:30 Enoxaparin Sodium (Lovenox) 40 mg DAILY SC Last administered on 11/23/18 09:02; Admin Dose 40 MG; Start 11/02/18 at 09:00; Status Hold Ibuprofen (Motrin) 400 mg Q6H PRN PO MILD PAIN(1-3) OR TEMP>38C Last administered on 11/24/18 08:55; Admin Dose 400 MG; Start 11/07/18 at 12:20 Potassium Chloride (Klor-Con 20) 20 meq BID PO Last administered on 12/06/18 08:25; Admin Dose 20 MEQ; Start 11/11/18 at 09:00 Ondansetron HCl (Zofran Inj) 4 mg Q6H PRN IV NAUSEA AND/OR VOMITING Last administered on 11/19/18 20:21; Admin Dose 4 MG; Start 11/19/18 at 20:30 Bumetanide (Bumex) 0.5 mg DAILY PO Last administered on 12/06/18 08:26; Admin Dose 0.5 MG; Start 11/20/18 at 09:00 Diphenhydramine HCl (Benadryl) 25 mg Q8H PRN PO ITCHING Last administered on 12/05/18 05:27; Admin Dose 25 MG; Start 11/20/18 at 14:00 Bisacodyl (Dulcolax Supp) 10 mg Q8H PRN [place] CONSTIPATION; Start 11/20/18 at 17:30 Guaifenesin/ Codeine Phosphate (Robitussin Ac Liquid Cup) 10 ml Q4H PRN PO COUGH; Start 11/20/18 at 17:30 Magnesium Hydroxide (Milk Of Mag) 30 ml DAILY PRN PO CONSTIPATION Last admin istered on 11/24/18at 08:45; Admin Dose 30 ML; Start 11/20/18 at 17:30 Simethicone (Mylicon) 80 mg Q8H PRN PO INDIGESTION; Start 11/20/18 at 23:30 Escitalopram Oxalate (Lexapro) 10 mg DAILY PO Last administered on 12/06/18 08:26; Admin Dose 10 MG; Start 11/24/18 at 19:00 Anastrozole (Arimidex) 1 mg DAILY PO Last administered on 12/06/18 08:28; Admin Dose 1 MG; Start 11/25/18 at 10:30 Carvedilol (Coreg) 3.125 mg BID PO Last administered on 12/05/18 21:24; Admin Dose 3.125 MG; Start 11/25/18 at 10:30 Docusate Sodium (Colace) 100 mg BID PO Last administered on 12/06/18 08:25; Admin Dose 100 MG; Start 11/25/18 at 10:30 Loratadine (Claritin) 10 mg DAILY PO Last administered on 12/06/18 08:25; Admin Dose 10 MG; Start 11/25/18 at 10:30 Pantoprazole (Protonix Tab) 40 mg AC BREAKFAST PO Last administered on 12/06/18 05:43; Admin Dose 40 MG; Start 11/25/18 at 10:30 Polyethylene Glycol (Miralax) 17 gm DAILY PO Last administered on 12/06/18 08:26; Admin Dose 17 GM; Start 11/25/18 at 10:30 Spironolactone (Aldactone) 50 mg DAILY PO Last administered on 12/06/18 08:25; Admin Dose 50 MG; Start 11/25/18 at 10:30 Diclofenac Sodium (Voltaren 1% Gel) 2 gm QID TP Last administered on 12/06/18 08:26; Admin Dose 2 GM; Start 11/27/18 at 22:00 Oxycodone HCl (Oxycontin) 20 mg BID PO Last administered on 12/06/18at 08:26; Admin Dose 20 MG; Start 12/01/18 at 09:00 Budesonide (Pulmicort (Neb)) 0.5 mg BID RESP THERAPY PRN HHN WHEEZING; Start 12/01/18 at 13:00 Zolpidem Tartrate (Ambien) 10 mg HS PRN PO INSOMNIA; Start 12/02/18 at 20:00 Ergocalciferol (Drisdol) 50,000 unit Q7D PO Last administered on 12/03/18at 17:57; Admin Dose 50,000 UNIT; Start 12/03/18 at 16:00 DES DUNAWAY MD Dec 06, 2018 11:20
[2018-12-06] MEDS: DIPHENHYDRAMINE 25 MG CAP PO PRN (11:46)
[2018-12-06 19:40] VITALS: BP 111/64; PULSE 90; RESP 18
[2018-12-07] MEDS: morphine 2 MG INJ IV PRN (01:33)
[2018-12-07 01:47] VITALS: BP 100/64; PULSE 86; RESP 18
[2018-12-07] MEDS: PANTOPRAZOLE (EC) 40 MG TAB PO SCH (05:48)
[2018-12-07] MEDS: METOLAZONE 2.5 MG TAB PO SCH ×2 (05:49→18:30)
[2018-12-07 07:52] VITALS: BP 127/78; PULSE 82; RESP 18
[2018-12-07] MEDS: POTASSIUM CHLORIDE (SR) 20 MEQ TAB PO SCH ×2 (09:17→21:17)
[2018-12-07] MEDS: BUMETANIDE 0.5 MG TAB PO SCH (09:17)
[2018-12-07] MEDS: DOCUSATE SODIUM 100 MG CAP PO SCH ×2 (09:17→21:17)
[2018-12-07] MEDS: LORATADINE 10 MG TAB PO SCH (09:17)
[2018-12-07] MEDS: ESCITALOPRAM 10 MG TAB PO SCH (09:17)
[2018-12-07] MEDS: oxyCODONE (CR) 20 MG TAB [oxyCONTIN] PO SCH ×2 (09:17→21:18)
[2018-12-07] MEDS: SPIRONOLACTONE 50 MG TAB PO SCH (09:17)
[2018-12-07] MEDS: DICLOFENAC SODIUM 1% GEL 100 GM TUBE TP SCH ×4 (09:18→21:18)
--- NOTE | 2018-12-07 10:04 | PN ---
Date/Time of Note Date/Time of Note DATE: 12/07/18 TIME: 10:03 Assessment/Plan VTE Prophylaxis Risk score (from Nsg)>0 risk: 12 SCD applied (from Ns): Yes SCD contraindicated: other Pharmacological prophylaxis: other Pharm contraindication: other Lines/Catheters IV Catheter Type (from Nrsg): PORT-A-CATH Central line still needed: Yes Urinary Cath still in place: No Assessment/Plan Assessment/Plan 1. PRIMARY ADENOCARCINOMA of the left breast. MULTIPLE BONY METS, PULMONARY METS;LIVER METS CHEMO ON HOLD; PT HAS A VERY GOOD RESPONSE TO CHEMO AND AI 2. Severe pain in the interscapular and lumbar sacral area most probably metastatic lesion possible femoral fracture. pathologic fracture of T9 with 60% of loss of height. Neurosurgical f/u. 3. Obesity. 4. Weight loss 60 pounds during the last 2 years by diet 5. PMS. 6. Myopia. 7. Anemia chronic disease with a drop of her hematocrit to 27; Latest results 38. Will recheck -Leukopenia.Thrombocytopenia; 8. Anxiety disorder. Claustrophobia. Increase Ativan to 1 mg every 8 as needed at Lexapro 10 mg daily. 9. Posttraumatic stress disorder. 10. Pain in the left forearm with a history of fracture of ulna and radius. 11. Tachycardia-resolved 12. Hypoxemia at night marginal improved after 2 L of nasal cannula oxygen. 13. Deconditioning 14. 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 MRI: 09/28/18:diffuse osseous metastatic disease with multiple pathologic compression fractures at least involving the T4, T5, T7, T9 and T11 levels. There is likely mild cortical breakthrough at several levels resulting in mild central canal narrowing. No gross evidence of cord compression is seen.. 15. Pain syndrome. 16. Hyponatremia-corrected; Aldactone on hold 17. Leucopenia-improved. 18. Neutropenia with occasional fever and chills- none today. Last chemotherapy 5 days ago. 20.Right sided cp after catheter insertion and correction less discomfort. 21. Decreased edema both lower extremities with [id number] with Pleural and Pericardial effusion. 22. pain syndrome 23.bilateral pleural effusions ; s/p recurrent left thoracentesis Reaccumulation of the pleural fluid. 24. Systolic over diastolic congestive heart failure with a right more than left lower extremity swelling with no DVT in latest venous Doppler. 25. Swelling of the left forearm-persist. Cellulitis of the left forearm with decreased edema anteriorly.-Today it is less edematous 26. Pathologic fracture of the right hip;s/p hemiarthroplasty of right hip . 27. Dizziness 28. Chills. 29. Memory impairment. 30. dry cough. 31. Decreased voice with wheezing. 32. Headaches 33. Hypokalemia- corrected 34. Status post (yesterday) thoracentesis from a left pleural cavity (800cc)with no immediate complications. 35. Status post right thoracentesis and 800 cc removal with no immediate complications. 36. Cholelithiasis 37.Pericardial effusion 38.Pain syndrome. Patient seen in collaboration with Dr Peñaloza Result Diagram: 12/04/18 1116 Subjective 24 Hr Interval Summary Free Text/Dictation resting seems comfortable no events overnight dw staff Eyes: no complaints ENT: no complaints Respiratory: no complaints Cardiovascular: no complaints Gastrointestinal: no complaints Genitourinary: no complaints Musculoskeletal: restricted range of motion (generelized weakess), other Skin: no complaints Exam/Review of Systems Exam Vitals Vital Signs Date Temp Pulse Resp B/P (MAP) Pulse Ox O2 O2 Flow FiO2 Time Delivery Rate 12/07/18 98.5 82 18 127/78 99 Room Air 07:52 (94) 12/04/18 2.0 08:00 Intake and Output 12/06/18 12/06/18 12/07/18 1515:00 23:00 07:00 IntakeIntake Total 320 ml 200 ml BalanceBalance 320 ml 200 ml Constitutional: alert, well developed, obese Psych: nl mood/affect Head: normocephalic Eyes: nl lids, nl sclera ENMT: nl external ears & nose Neck: non-tender Respiratory: diminished breath sounds (bilaterally at bases) Cardiovascular: nl pulses (s1s2) Gastrointestinal: soft, non-tender Musculoskeletal: nl extremities to inspection Extremities: normal pulses, edema (trace edeam ble ) Neurological: nl mental status, nl speech Lymph: nontender Medications Medication Current Medications Morphine Sulfate (morphine) 2 mg Q4H PRN IV SEVERE PAIN LEVEL 7-10 Last administered on 12/07/18at 01:33; Admin Dose 2 MG; Start 10/22/18 at 01:30 Phenol (Cepastat Lozenge) 1 lozenge Q1H PRN [place] sore throat Last administered on 10/31/18 18:34; Admin Dose 1 LOZENGE; Start 10/27/18 at 21:30 Metolazone (Zaroxolyn) 2.5 mg BID@0530,1730 PO Last administered on 12/07/18 05:49; Admin Dose 2.5 MG; Start 11/01/18 at 05:30 Enoxaparin Sodium (Lovenox) 40 mg DAILY SC Last administered on 11/23/18 09:02; Admin Dose 40 MG; Start 11/02/18 at 09:00; Status Hold Ibuprofen (Motrin) 400 mg Q6H PRN PO MILD PAIN(1-3) OR TEMP>38C Last admin istered on 11/24/18 08:55; Admin Dose 400 MG; Start 11/07/18 at 12:20 Potassium Chloride (Klor-Con 20) 20 meq BID PO Last administered on 12/07/18 09:17; Admin Dose 20 MEQ; Start 11/11/18 at 09:00 Ondansetron HCl (Zofran Inj) 4 mg Q6H PRN IV NAUSEA AND/OR VOMITING Last administered on 11/19/18 20:21; Admin Dose 4 MG; Start 11/19/18 at 20:30 Bumetanide (Bumex) 0.5 mg DAILY PO Last administered on 12/07/18 09:17; Admin Dose 0.5 MG; Start 11/20/18 at 09:00 Diphenhydramine HCl (Benadryl) 25 mg Q8H PRN PO ITCHING Last administered on 12/06/18 11:46; Admin Dose 25 MG; Start 11/20/18 at 14:00 Bisacodyl (Dulcolax Supp) 10 mg Q8H PRN [place] CONSTIPATION; Start 11/20/18 at 17:30 Guaifenesin/ Codeine Phosphate (Robitussin Ac Liquid Cup) 10 ml Q4H PRN PO COUGH; Start 11/20/18 at 17:30 Magnesium Hydroxide (Milk Of Mag) 30 ml DAILY PRN PO CONSTIPATION Last administered on 11/24/18 08:45; Admin Dose 30 ML; Start 11/20/18 at 17:30 Simethicone (Mylicon) 80 mg Q8H PRN PO INDIGESTION; Start 11/20/18 at 23:30 Escitalopram Oxalate (Lexapro) 10 mg DAILY PO Last administered on 12/07/18 09:17; Admin Dose 10 MG; Start 11/24/18 at 19:00 Anastrozole (Arimidex) 1 mg DAILY PO Last administered on 12/06/18 08:28; Admin Dose 1 MG; Start 11/25/18 at 10:30 Carvedilol (Coreg) 3.125 mg BID PO Last administered on 12/07/18 09:17; Admin Dose 3.125 MG; Start 11/25/18 at 10:30 Docusate Sodium (Colace) 100 mg BID PO Last administered on 12/07/18 09:17; Admin Dose 100 MG; Start 11/25/18 at 10:30 Loratadine (Claritin) 10 mg DAILY PO Last administered on 12/07/18 09:17; Admin Dose 10 MG; Start 11/25/18 at 10:30 Pantoprazole (Protonix Tab) 40 mg AC BREAKFAST PO Last administered on 12/07/18 05:48; Admin Dose 40 MG; Start 11/25/18 at 10:30 Polyethylene Glycol (Miralax) 17 gm DAILY PO Last administered on 12/06/18 08:26; Admin Dose 17 GM; Start 11/25/18 at 10:30 Spironolactone (Aldactone) 50 mg DAILY PO Last administered on 12/07/18 09:17; Admin Dose 50 MG; Start 11/25/18 at 10:30 Diclofenac Sodium (Voltaren 1% Gel) 2 gm QID TP Last administered on 12/07/18 09:18; Admin Dose 2 GM; Start 11/27/18 at 22:00 Oxycodone HCl (Oxycontin) 20 mg BID PO Last administered on 12/07/18 09:17; Admin Dose 20 MG; Start 12/01/18 at 09:00 Budesonide (Pulmicort (Neb)) 0.5 mg BID RESP THERAPY PRN HHN WHEEZING; Start 12/01/18 at 13:00 Zolpidem Tartrate (Ambien) 10 mg HS PRN PO INSOMNIA; Start 12/02/18 at 20:00 Ergocalciferol (Drisdol) 50,000 unit Q7D PO Last administered on 12/03/18at 17:57; Admin Dose 50,000 UNIT; Start 12/03/18 at 16:00 TOMMIE JAMES Dec 07, 2018 10:04
[2018-12-07] MEDS: POLYETHYLENE GLYCOL 17 GM PACKET PO SCH (12:21)
[2018-12-07 13:49] VITALS: BP 116/75; PULSE 88; RESP 18
--- NOTE | 2018-12-07 14:49 | CONS ---
Consult Date/Type/Reason Admit Date/Time October 21, 2018 at 17:39 Initial Consult Date 10/21/18 Requesting Provider: RUSS JEROME MD Date/Time of Note DATE: 12/07/18 TIME: 14:47 Subjective NO acute change - pt better overall- no CP now - in good fluid status. ROS: No fever, no chills, no nausea, no vomiting, no diarrhea/constipation No recent weight changes No chest pain, no PND, no orthopnea - much better SOB No dizziness, blurred vision No thirst, no heat or cold intolerance Objective Vitals Vital Signs Date Temp Pulse Resp B/P (MAP) Pulse Ox O2 O2 Flow FiO2 Time Delivery Rate 12/07/18 98.3 88 18 116/75 99 Room Air 13:49 (89) 12/04/18 2.0 08:00 Intake and Output 12/06/18 12/06/18 12/07/18 1515:00 23:00 07:00 IntakeIntake Total 320 ml 200 ml BalanceBalance 320 ml 200 ml Exam General: WN/WD/NAD, AOx 3 HEENT: Unicetric/atraumatic/EOMI ( follows commands) NECK: JVD elevated, no thyromegaly Lymph: no lymphadenopathy HEART: regular with no S3, II/ systolic murmur at apex, LUNGS: Coarse sounds, better airation ABD: soft, NT, ND, +BS : Intact Neuro: non focal SKIN: chronic changes EXT: trace edema Results/Medications Result Diagram: 12/04/18 1116 Home Meds Reported Medications Tuberculin,Purif.prot.deriv. (Tubersol) 5 Tub Unit/0.1 Ml Vial, 0.1 ML ID, VIAL INJECT QHS EVERY 10 DAYS FOR PPD SCREENING FOR 11 DAYS READ IN 48 HOURS,IF NEGATIVE 2STEP IN 7 DAYS FROM FIRST DOSE. 10/21/18 Acetaminophen* (Tylenol*) 325 Mg Tablet, 650 MG PO Q4H PRN for PAIN LEVEL 1- 10/10, TAB 10/21/18 Spironolactone* (Aldactone*) 50 Mg Tablet, 50 MG PO DAILY, #30 TAB HOLD FOR SBP<110 10/21/18 Simethicone* (Mylicon*) 80 Mg Tab, 80 MG PO Q8H, TAB 10/21/18 Olopatadine* (Patanol* Ophth) 0.1% - 5 Ml Drops, 1 DROP BOTH EYES BID, EA 10/21/18 Hydrocodone/Acetaminophen ([place] 10-325 Tablet) 1 Each Tablet, 1 EACH PO Q4H, TAB 10/21/18 Loratadine* (Loratadine*) 10 Mg Tablet, 10 MG PO DAILY for FOR 3 MONTHS, #30 TAB 10/21/18 Lidocaine (Lidocaine) 1 Each Adh..patch, 1 EACH TP DAILY 10/21/18 Ipratropium-Albuterol (Ipratropium-Albuterol) 0.5-3 Mg/3 Ml Ampul.neb, 3 ML INHALATION Q8H, #30 VIAL 10/21/18 Furosemide* (Furosemide*) 40 Mg Tablet, 40 MG PO BID, TAB HOLD FOR SBP<110 10/21/18 Na Phos,M-B/Na Phos,Di-Ba (Fleet Enema Extra) Unknown Strength Enema, 1 APPLIC RC NEEDED for CONSTIPATION, ENEMA 10/21/18 Bisacodyl (Dulcolax) 10 Mg Supp.rect, 10 MG RC NEEDED, SUPP.RECT 10/21/18 Potassium Chloride* (Potassium Chloride*) 20 Meq Tablet.er, 20 MEQ PO DAILY, TAB.SA 09/09/18 Pantoprazole* (Pantoprazole*) 40 Mg Tablet.dr, 40 MG PO AC BREAKFAST, TAB 08/22/18 Oxycodone Hcl* (Oxycontin*) 20 Mg Tab.er.12h, 20 MG PO Q12, TAB 08/22/18 Amlodipine Besylate* (Norvasc*) 5 Mg Tablet, 5 MG PO DAILY, TAB HOLD FOR SBP <110. 08/22/18 Polyethylene Glycol* (Miralax*) 17 Gm Powd.pack, 17 GM PO DAILY, #60 PACKET 08/22/18 Magnesium Hydroxide* (Milk Of Magnesia*) 400 Mg/5 Ml Oral.susp, 30 ML PO DAILY, ML 08/22/18 Escitalopram Oxalate* (Lexapro*) 10 Mg Tablet, 10 MG PO DAILY, #30 TAB 08/22/18 Docusate Sodium* (Colace*) 100 Mg Capsule, 100 MG PO BID, #60 CAP 08/22/18 Carvedilol* (Carvedilol*) 3.125 Mg Tablet, 3.125 MG PO BID, #60 TAB HOLD FOR SBP <110 OR [place] <60. GIVE WITH FOOD. 08/22/18 Benazepril Hcl* (Benazepril Hcl*) 5 Mg Tablet, 5 MG PO DAILY, #60 TAB HOLD FOR SBP <110. 08/22/18 Anastrozole* (Arimidex*) 1 Mg Tablet, 1 MG PO DAILY, #30 TAB 08/22/18 Medications Current Medications Morphine Sulfate (morphine) 2 mg Q4H PRN IV SEVERE PAIN LEVEL 7-10 Last administered on 12/07/18 01:33; Admin Dose 2 MG; Start 10/22/18 at 01:30 Phenol (Cepastat Lozenge) 1 lozenge Q1H PRN [place] sore throat Last administered on 10/31/18 18:34; Admin Dose 1 LOZENGE; Start 10/27/18 at 21:30 Metolazone (Zaroxolyn) 2.5 mg BID@0530,1730 PO Last administered on 12/07/18at 05:49; Admin Dose 2.5 MG; Start 11/01/18 at 05:30 Enoxaparin Sodium (Lovenox) 40 mg DAILY SC Last administered on 11/23/18 09:02; Admin Dose 40 MG; Start 11/02/18 at 09:00; Status Hold Ibuprofen (Motrin) 400 mg Q6H PRN PO MILD PAIN(1-3) OR TEMP>38C Last administered on 11/24/18 08:55; Admin Dose 400 MG; Start 11/07/18 at 12:20 Potassium Chloride (Klor-Con 20) 20 meq BID PO Last administered on 12/07/18 09:17; Admin Dose 20 MEQ; Start 11/11/18 at 09:00 Ondansetron HCl (Zofran Inj) 4 mg Q6H PRN IV NAUSEA AND/OR VOMITING Last administered on 11/19/18 20:21; Admin Dose 4 MG; Start 11/19/18 at 20:30 Bumetanide (Bumex) 0.5 mg DAILY PO Last administered on 12/07/18 09:17; Admin Dose 0.5 MG; Start 11/20/18 at 09:00 Diphenhydramine HCl (Benadryl) 25 mg Q8H PRN PO ITCHING Last administered on 12/06/18at 11:46; Admin Dose 25 MG; Start 11/20/18 at 14:00 Bisacodyl (Dulcolax Supp) 10 mg Q8H PRN [place] CONSTIPATION; Start 11/20/18 at 17:30 Guaifenesin/ Codeine Phosphate (Robitussin Ac Liquid Cup) 10 ml Q4H PRN PO COUGH; Start 11/20/18 at 17:30 Magnesium Hydroxide (Milk Of Mag) 30 ml DAILY PRN PO CONSTIPATION Last administered on 11/24/18at 08:45; Admin Dose 30 ML; Start 11/20/18 at 17:30 Simethicone (Mylicon) 80 mg Q8H PRN PO INDIGESTION; Start 11/20/18 at 23:30 Escitalopram Oxalate (Lexapro) 10 mg DAILY PO Last administered on 12/07/18 09:17; Admin Dose 10 MG; Start 11/24/18 at 19:00 Anastrozole (Arimidex) 1 mg DAILY PO Last administered on 12/06/18at 08:28; Admin Dose 1 MG; Start 11/25/18 at 10:30 Carvedilol (Coreg) 3.125 mg BID PO Last administered on 12/07/18 09:17; Admin Dose 3.125 MG; Start 11/25/18 at 10:30 Docusate Sodium (Colace) 100 mg BID PO Last administered on 12/07/18 09:17; Admin Dose 100 MG; Start 11/25/18 at 10:30 Loratadine (Claritin) 10 mg DAILY PO Last administered on 12/07/18 09:17; Admin Dose 10 MG; Start 11/25/18 at 10:30 Pantoprazole (Protonix Tab) 40 mg AC BREAKFAST PO Last administered on 12/07/18at 05:48; Admin Dose 40 MG; Start 11/25/18 at 10:30 Polyethylene Glycol (Miralax) 17 gm DAILY PO Last administered on 12/07/18 12:21; Admin Dose 17 GM; Start 11/25/18 at 10:30 Spironolactone (Aldactone) 50 mg DAILY PO Last administered on 12/07/18 09:17; Admin Dose 50 MG; Start 11/25/18 at 10:30 Diclofenac Sodium (Voltaren 1% Gel) 2 gm QID TP Last administered on 12/07/18at 12:21; Admin Dose 2 GM; Start 11/27/18 at 22:00 Oxycodone HCl (Oxycontin) 20 mg BID PO Last administered on 12/07/18at 09:17; Admin Dose 20 MG; Start 12/01/18 at 09:00 Budesonide (Pulmicort (Neb)) 0.5 mg BID RESP THERAPY PRN HHN WHEEZING; Start 12/01/18 at 13:00 Zolpidem Tartrate (Ambien) 10 mg HS PRN PO INSOMNIA; Start 12/02/18 at 20:00 Ergocalciferol (Drisdol) 50,000 unit Q7D PO Last administered on 12/03/18at 17:57; Admin Dose 50,000 UNIT; Start 12/03/18 at 16:00 Assessment/Plan Hospital Course (Demo Recall) 1. Congestive heart failure exacerbation would be diastolic, acute on chronic by most recent echo.-now s/p echo this admit with EF 60/small effusion - better now, responding to diuresis. BETTER overall- very robust urine output - improved CHF. Overall stable. Responded well. Much better overall. 2. Abnormal electrocardiogram with low voltage, rule out pericardial effusion - stable, no signs of tamponade. Treated. Off tele now. NO intervention planned. 3. Hypertension-currently borderline hypotension - treated with meds. BP stable overall. Tolerated Rx well. 4. Metastatic breast carcinoma- responded to chemo per Dr. Fernández - still poor prognosis. Traeted - hair beginning to grow back. 5. History of pathologic fractures of the leg, status post open reduction and internal fixation - pain controlled. 6. Anemia =- Rx per hem-onc team. Rx as needed. 7. Increased BNP consistent with patient's congestive heart failure. 8. Pericardial effusion-small by echo 8. Cough - con't anti-bx now. EMILY NELSON MD Dec 07, 2018 14:49
[2018-12-07] MEDS: ANASTROZOLE 1 MG TAB PO SCH (18:29)
[2018-12-07 19:55] VITALS: BP 102/60; PULSE 80; RESP 18
--- NOTE | 2018-12-07 21:35 | CONS ---
Assessment/Plan Assessment/Plan Hospital Course (Demo Recall) METASTATIC BREAST CANCER WITH PRIMARY ADENOCARCINOMA IN the left breast. MULTIPLE BONY METS, PULMONARY METS, LIVER METS CHEMO ON HOLD PT HAS A VERY GOOD RESPONSE TO CHEMO AND AI CONT AI FOR NOW CT ABD FOR RESTAGING 08.27.18, 12.04.18 - noted , stable POST aredia Leukopenia- post chemo, FLUCTUATING post NEUPOGEN monitor closely post Neutropenia with occasional fever and chills. - resolved Anemia chronic disease SOB PLEURAL EFFUSIONS, NEG CYTOLOGY POST thoracentesis Fluid overload diuretic cardiology F-UP Severe pain in the interscapular and lumbar sacral area most probably metastatic lesion possible femoral fracture. pathologic fracture of T9 with 60% of loss of height. Bony pain with multiple bony mets post XRT d/w dr Ocampo HYPOKALEMIA- REPLACED Obesity. Weight loss 60 pounds during the last 2 years COUGH, Upper respiratory infection pharyngitis with dry cough. POST ATB PMS. Myopia. Anxiety disorder. Claustrophobia. Posttraumatic stress disorder. Pain in the left forearm with a history of fracture of ulna and radius. Tachycardia Hypoxemia at night marginal improved after 2 L of nasal cannula oxygen. Deconditioning Pain syndrome. Today the most painful zone is in the right hip area. X-ray did not show any fractures. Hyponatremia- resolved Hypoalbuminemia Right sided cp after catheter insertion and correction less discomfort. Decreased edema both lower extremities with hypotension-improving Swelling of the left forearm-persist. Consultation Date/Type/Reason Admit Date/Time October 21, 2018 at 17:39 Initial Consult Date 10/21/18 Type of Consult [facility] Requesting Provider: RUSS JEROME MD Date/Time of Note DATE: 12/07/18 TIME: 21:34 24 HR Interval Summary Free Text/Dictation NAD D/W STAFF Exam/Review of Systems Exam Vitals Vital Signs Date Temp Pulse Resp B/P (MAP) Pulse Ox O2 O2 Flow FiO2 Time Delivery Rate 12/07/18 98.5 80 18 102/60 92 19:55 (74) 12/07/18 Room Air 13:49 12/04/18 2.0 08:00 Intake and Output 12/06/18 12/06/18 12/07/18 1515:00 23:00 07:00 IntakeIntake Total 320 ml 200 ml BalanceBalance 320 ml 200 ml Exam Constitutional: alert, oriented, well developed, distress, frail; No non-verbal, No obese, No other Psych: nl mood/affect, anxiety, depression; No no complaints, No confusion, No suicidal, No other Head: normocephalic, atraumatic; No lacerations, No hematomas, No other Eyes: EOMI, nl lids, PERRL; No nl conjunctiva, No nl sclera, No icteric, No fundi, disc, No other ENMT: nl lips & teeth, tympanic membranes; No nl external ears & nose, No nl nasal mucosa & septum, No mucosa pink and moist, No intubated, No other Neck: jvd, bruits; No supple, No non-tender, No masses, No thyromegaly, No nuchal rigidity, No other Respiratory: clear to auscultation (Upper parts with pleural friction rub lower parts.), congested cough, diminished breath sounds; No normal air movement, No crackles/rales, No intercostal retraction, No labored breathing, No respirations, No tactile fremitus, No wheezing, No other Cardiovascular: regular rate and rhythm, edema, systolic murmur; No nl pulses, No bruits, No diastolic murmur, No gallop, No irregular rhythm, No jugular venous distention (JVD), No murmurs/extra sounds, No rub, No S3, No S4, No other Gastrointestinal: soft, nl liver, spleen, bowel sounds; No non-tender, No ascites, No distended, No firm, No hepatomegaly, No mass, No rebound or guarding, No splenomegaly, No surgical scars, No tender, No other Musculoskeletal: joint tenderness, muscle tone, muscle weakness; No nl extremities to inspection, No nl gait and stance, No range of motion, No spine non-tender, No swelling, No other Extremities: No normal pulses, No calf tenderness, No cyanosis, No clubbing, No edema, No pitting pedal edema, No palpable cord, No tenderness, No other Neurological: [employer] 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; No nl mental status, No nl speech, No nl strength, No confused, No DTR's symmetric, No focal weakness, No lethargic, No numbness, No reflexes, No unresponsive, No other Skin: No nl turgor, No rash or lesions, No diaphoresis, No ecchymosis, No laceration, No puncture, No other Lymph: No nl lymph nodes, No enlarged, No nontender, No other Results Result Diagram: 12/04/18 1116 Medications Medication Current Medications Morphine Sulfate (morphine) 2 mg Q4H PRN IV SEVERE PAIN LEVEL 7-10 Last admini stered on 12/07/18 01:33; Admin Dose 2 MG; Start 10/22/18 at 01:30 Phenol (Cepastat Lozenge) 1 lozenge Q1H PRN [place] sore throat Last administered on 10/31/18 18:34; Admin Dose 1 LOZENGE; Start 10/27/18 at 21:30 Metolazone (Zaroxolyn) 2.5 mg BID@0530,1730 PO Last administered on 12/07/18 18:30; Admin Dose 2.5 MG; Start 11/01/18 at 05:30 Enoxaparin Sodium (Lovenox) 40 mg DAILY SC Last administered on 11/23/18 09:02; Admin Dose 40 MG; Start 11/02/18 at 09:00; Status Hold Ibuprofen (Motrin) 400 mg Q6H PRN PO MILD PAIN(1-3) OR TEMP>38C Last administered on 11/24/18 08:55; Admin Dose 400 MG; Start 11/07/18 at 12:20 Potassium Chloride (Klor-Con 20) 20 meq BID PO Last administered on 12/07/18 21:17; Admin Dose 20 MEQ; Start 11/11/18 at 09:00 Ondansetron HCl (Zofran Inj) 4 mg Q6H PRN IV NAUSEA AND/OR VOMITING Last administered on 11/19/18 20:21; Admin Dose 4 MG; Start 11/19/18 at 20:30 Bumetanide (Bumex) 0.5 mg DAILY PO Last administered on 12/07/18 09:17; Admin Dose 0.5 MG; Start 11/20/18 at 09:00 Diphenhydramine HCl (Benadryl) 25 mg Q8H PRN PO ITCHING Last administered on 12/06/18 11:46; Admin Dose 25 MG; Start 11/20/18 at 14:00 Bisacodyl (Dulcolax Supp) 10 mg Q8H PRN [place] CONSTIPATION; Start 11/20/18 at 17:30 Guaifenesin/ Codeine Phosphate (Robitussin Ac Liquid Cup) 10 ml Q4H PRN PO COUGH; Start 11/20/18 at 17:30 Magnesium Hydroxide (Milk Of Mag) 30 ml DAILY PRN PO CONSTIPATION Last administered on 11/24/18at 08:45; Admin Dose 30 ML; Start 11/20/18 at 17:30 Simethicone (Mylicon) 80 mg Q8H PRN PO INDIGESTION; Start 11/20/18 at 23:30 Escitalopram Oxalate (Lexapro) 10 mg DAILY PO Last administered on 12/07/18 09:17; Admin Dose 10 MG; Start 11/24/18 at 19:00 Anastrozole (Arimidex) 1 mg DAILY PO Last administered on 12/07/18 18:29; Admin Dose 1 MG; Start 11/25/18 at 10:30 Carvedilol (Coreg) 3.125 mg BID PO Last administered on 12/07/18 09:17; Admin Dose 3.125 MG; Start 11/25/18 at 10:30 Docusate Sodium (Colace) 100 mg BID PO Last administered on 12/07/18 21:17; Admin Dose 100 MG; Start 11/25/18 at 10:30 Loratadine (Claritin) 10 mg DAILY PO Last administered on 12/07/18 09:17; Admin Dose 10 MG; Start 11/25/18 at 10:30 Pantoprazole (Protonix Tab) 40 mg AC BREAKFAST PO Last administered on 12/07/18 05:48; Admin Dose 40 MG; Start 11/25/18 at 10:30 Polyethylene Glycol (Miralax) 17 gm DAILY PO Last administered on 12/07/18 12:21; Admin Dose 17 GM; Start 11/25/18 at 10:30 Spironolactone (Aldactone) 50 mg DAILY PO Last administered on 12/07/18 09:17; Admin Dose 50 MG; Start 11/25/18 at 10:30 Diclofenac Sodium (Voltaren 1% Gel) 2 gm QID TP Last administered on 12/07/18 21:18; Admin Dose 2 GM; Start 11/27/18 at 22:00 Oxycodone HCl (Oxycontin) 20 mg BID PO Last administered on 12/07/18at 21:18; Admin Dose 20 MG; Start 12/01/18 at 09:00 Budesonide (Pulmicort (Neb)) 0.5 mg BID RESP THERAPY PRN HHN WHEEZING; Start 12/01/18 at 13:00 Zolpidem Tartrate (Ambien) 10 mg HS PRN PO INSOMNIA; Start 12/02/18 at 20:00 Ergocalciferol (Drisdol) 50,000 unit Q7D PO Last administered on 12/03/18at 17:57; Admin Dose 50,000 UNIT; Start 12/03/18 at 16:00 DES DUNAWAY MD Dec 07, 2018 21:34
[2018-12-08] MEDS: DIPHENHYDRAMINE 25 MG CAP PO PRN ×2 (00:19→23:57)
[2018-12-08 02:00] VITALS: BP 108/55; PULSE 95; RESP 18
[2018-12-08] MEDS: PANTOPRAZOLE (EC) 40 MG TAB PO SCH (05:17)
[2018-12-08] MEDS: METOLAZONE 2.5 MG TAB PO SCH ×2 (05:18→17:56)
--- NOTE | 2018-12-08 08:14 | PN ---
Date/Time of Note Date/Time of Note DATE: 12/08/18 TIME: 08:13 Assessment/Plan VTE Prophylaxis Risk score (from Nsg)>0 risk: 12 SCD applied (from Ns): Yes SCD contraindicated: other Pharmacological prophylaxis: other Pharm contraindication: other Lines/Catheters IV Catheter Type (from Nrsg): PORT-A-CATH Central line still needed: Yes Urinary Cath still in place: No Assessment/Plan Assessment/Plan 1. PRIMARY ADENOCARCINOMA of the left breast. MULTIPLE BONY METS, PULMONARY METS;LIVER METS CHEMO ON HOLD; PT HAS A VERY GOOD RESPONSE TO CHEMO AND AI 2. Severe pain in the interscapular and lumbar sacral area most probably metastatic lesion possible femoral fracture. pathologic fracture of T9 with 60% of loss of height. Neurosurgical f/u. 3. Obesity. 4. Weight loss 60 pounds during the last 2 years by diet 5. PMS. 6. Myopia. 7. Anemia chronic disease with a drop of her hematocrit to 27; Latest results 38.2. Will recheck -Leukopenia.Thrombocytopenia; 8. Anxiety disorder. Claustrophobia. Increase Ativan to 1 mg every 8 as needed at Lexapro 10 mg daily. 9. Posttraumatic stress disorder. 10. Pain in the left forearm with a history of fracture of ulna and radius. 11. Tachycardia-resolved 12. Hypoxemia at night marginal improved after 2 L of nasal cannula oxygen. 13. Deconditioning 14. 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 MRI: 09/28/18:diffuse osseous metastatic disease with multiple pathologic compression fractures at least involving the T4, T5, T7, T9 and T11 levels. There is likely mild cortical breakthrough at several levels resulting in mild central canal narrowing. No gross evidence of cord compression is seen.. 15. Pain syndrome. 16. Hyponatremia-corrected; Aldactone on hold 17. Leucopenia-improved. 18. Neutropenia with occasional fever and chills- none today. Last chemotherapy 5 days ago. 20.Right sided cp after catheter insertion and correction less discomfort. 21. Decreased edema both lower extremities with [id number] with Pleural and Pericardial effusion. 22. pain syndrome 23.bilateral pleural effusions ; s/p recurrent left thoracentesis Reaccumulation of the pleural fluid. 24. Systolic over diastolic congestive heart failure with a right more than left lower extremity swelling with no DVT in latest venous Doppler. 25. Swelling of the left forearm-persist. Cellulitis of the left forearm with decreased edema anteriorly.-Today it is less edematous 26. Pathologic fracture of the right hip;s/p hemiarthroplasty of right hip . 27. Dizziness 28. Chills. 29. Memory impairment. 30. dry cough. 31. Decreased voice with wheezing. 32. Headaches 33. Hypokalemia- corrected 34. Status post (yesterday) thoracentesis from a left pleural cavity (800cc)with no immediate complications. 35. Status post right thoracentesis and 800 cc removal with no immediate complications. 36. Cholelithiasis 37.Pericardial effusion 38.Pain syndrome. Patient seen in collaboration with Dr Peñaloza Result Diagram: 12/08/18 0418 12/08/18417 Results 24hrs Laboratory Tests Test 12/08/18 04:18 White Blood Count 3.6 L Red Blood Count 3.83 L Hemoglobin 12.5 Hematocrit 38.2 Mean Corpuscular Volume 99.7 Mean Corpuscular Hemoglobin 32.6 Mean Corpuscular Hemoglobin Concent 32.7 Red Cell Distribution Width 13.4 Platelet Count 145 # Mean Platelet Volume 9.4 Immature Granulocytes % 0.000 L Neutrophils % 37.9 L Lymphocytes % 42.9 Monocytes % 14.8 H Eosinophils % 3.6 Basophils % 0.8 Nucleated Red Blood Cells % 0.0 Immature Granulocytes # 0.000 Neutrophils # 1.4 L Lymphocytes # 1.5 Monocytes # 0.5 Eosinophils # 0.1 Basophils # 0.0 Nucleated Red Blood Cells # 0.0 Sodium Level 139 Potassium Level 3.9 Chloride Level 98 Carbon Dioxide Level 33 H Anion Gap 8 Blood Urea Nitrogen 26 H Creatinine 0.80 Est Glomerular Filtrat Rate mL/min > 60 Glucose Level 107 Calcium Level 8.0 L Subjective 24 Hr Interval Summary Free Text/Dictation resting seems comfortable no events overnight dw staff Eyes: no complaints ENT: no complaints Respiratory: no complaints Cardiovascular: no complaints Gastrointestinal: decreased appetite Genitourinary: no complaints Musculoskeletal: restricted range of motion Neurologic: no complaints Exam/Review of Systems Exam Vitals Vital Signs Date Temp Pulse Resp B/P (MAP) Pulse Ox O2 O2 Flow FiO2 Time Delivery Rate 12/08/18 98.5 95 18 108/55 90 02:00 (72) 12/07/18 Room Air 13:49 12/04/18 2.0 08:00 Constitutional: alert, well developed, obese Psych: nl mood/affect Head: normocephalic Eyes: nl lids, nl sclera ENMT: nl external ears & nose Neck: non-tender Respiratory: diminished breath sounds (bilaterally ) Cardiovascular: nl pulses, other (s1s2) Gastrointestinal: soft Musculoskeletal: muscle weakness, range of motion Extremities: normal pulses Neurological: nl speech, other (alert/responsive) Skin: nl turgor Results Results 24hrs Laboratory Tests Test 12/08/18 04:18 White Blood Count 3.6 L Red Blood Count 3.83 L Hemoglobin 12.5 Hematocrit 38.2 Mean Corpuscular Volume 99.7 Mean Corpuscular Hemoglobin 32.6 Mean Corpuscular Hemoglobin Concent 32.7 Red Cell Distribution Width 13.4 Platelet Count 145 # Mean Platelet Volume 9.4 Immature Granulocytes % 0.000 L Neutrophils % 37.9 L Lymphocytes % 42.9 Monocytes % 14.8 H Eosinophils % 3.6 Basophils % 0.8 Nucleated Red Blood Cells % 0.0 Immature Granulocytes # 0.000 Neutrophils # 1.4 L Lymphocytes # 1.5 Monocytes # 0.5 Eosinophils # 0.1 Basophils # 0.0 Nucleated Red Blood Cells # 0.0 Sodium Level 139 Potassium Level 3.9 Chloride Level 98 Carbon Dioxide Level 33 H Anion Gap 8 Blood Urea Nitrogen 26 H Creatinine 0.80 Est Glomerular Filtrat Rate mL/min > 60 Glucose Level 107 Calcium Level 8.0 L Medications Medication Current Medications Morphine Sulfate (morphine) 2 mg Q4H PRN IV SEVERE PAIN LEVEL 7-10 Last administered on 12/07/18at 01:33; Admin Dose 2 MG; Start 10/22/18 at 01:30 Phenol (Cepastat Lozenge) 1 lozenge Q1H PRN MT sore throat Last administered on 10/31/18at 18:34; Admin Dose 1 LOZENGE; Start 10/27/18 at 21:30 Metolazone (Zaroxolyn) 2.5 mg BID@0530,1730 PO Last administered on 12/08/18at 05:18; Admin Dose 2.5 MG; Start 11/01/18 at 05:30 Enoxaparin Sodium (Lovenox) 40 mg DAILY SC Last administered on 11/23/18at 09:02; Admin Dose 40 MG; Start 11/02/18 at 09:00; Status Hold Ibuprofen (Motrin) 400 mg Q6H PRN PO MILD PAIN(1-3) OR TEMP>38C Last administered on 11/24/18 08:55; Admin Dose 400 MG; Start 11/07/18 at 12:20 Potassium Chloride (Klor-Con 20) 20 meq BID PO Last administered on 12/07/18 21:17; Admin Dose 20 MEQ; Start 11/11/18 at 09:00 Ondansetron HCl (Zofran Inj) 4 mg Q6H PRN IV NAUSEA AND/OR VOMITING Last administered on 11/19/18 20:21; Admin Dose 4 MG; Start 11/19/18 at 20:30 Bumetanide (Bumex) 0.5 mg DAILY PO Last administered on 12/07/18 09:17; Admin Dose 0.5 MG; Start 11/20/18 at 09:00 Diphenhydramine HCl (Benadryl) 25 mg Q8H PRN PO ITCHING Last administered on 00:19; Admin Dose 25 MG; Start 11/20/18 at 14:00 Bisacodyl (Dulcolax Supp) 10 mg Q8H PRN DC CONSTIPATION; Start 11/20/18 at 17:30 Guaifenesin/ Codeine Phosphate (Robitussin Ac Liquid Cup) 10 ml Q4H PRN PO COUGH; Start 11/20/18 at 17:30 Magnesium Hydroxide (Milk Of Mag) 30 ml DAILY PRN PO CONSTIPATION Last administered on 11/24/18 08:45; Admin Dose 30 ML; Start 11/20/18 at 17:30 Simethicone (Mylicon) 80 mg Q8H PRN PO INDIGESTION; Start 11/20/18 at 23:30 Escitalopram Oxalate (Lexapro) 10 mg DAILY PO Last administered on 12/07/18 09:17; Admin Dose 10 MG; Start 11/24/18 at 19:00 Anastrozole (Arimidex) 1 mg DAILY PO Last administered on 12/07/18 18:29; Admin Dose 1 MG; Start 11/25/18 at 10:30 Carvedilol (Coreg) 3.125 mg BID PO Last administered on 12/07/18 09:17; Admin Dose 3.125 MG; Start 11/25/18 at 10:30 Docusate Sodium (Colace) 100 mg BID PO Last administered on 12/07/18 21:17; Admin Dose 100 MG; Start 11/25/18 at 10:30 Loratadine (Claritin) 10 mg DAILY PO Last administered on 12/07/18 09:17; Admin Dose 10 MG; Start 11/25/18 at 10:30 Pantoprazole (Protonix Tab) 40 mg AC BREAKFAST PO Last administered on 12/08/18 05:17; Admin Dose 40 MG; Start 11/25/18 at 10:30 Polyethylene Glycol (Miralax) 17 gm DAILY PO Last administered on 12/07/18 12:21; Admin Dose 17 GM; Start 11/25/18 at 10:30 Spironolactone (Aldactone) 50 mg DAILY PO Last administered on 12/07/18 09:17; Admin Dose 50 MG; Start 11/25/18 at 10:30 Diclofenac Sodium (Voltaren 1% Gel) 2 gm QID TP Last administered on 12/07/18 21:18; Admin Dose 2 GM; Start 11/27/18 at 22:00 Oxycodone HCl (Oxycontin) 20 mg BID PO Last administered on 12/07/18 21:18; Admin Dose 20 MG; Start 12/01/18 at 09:00 Budesonide (Pulmicort (Neb)) 0.5 mg BID RESP THERAPY PRN HHN WHEEZING; Start 12/01/18 at 13:00 Zolpidem Tartrate (Ambien) 10 mg HS PRN PO INSOMNIA; Start 12/02/18 at 20:00 Ergocalciferol (Drisdol) 50,000 unit Q7D PO Last administered on 12/03/18 17:57; Admin Dose 50,000 UNIT; Start 12/03/18 at 16:00 TOMMIE JAMES Dec 08, 2018 08:14
[2018-12-08] MEDS: LORATADINE 10 MG TAB PO SCH (08:21)
[2018-12-08] MEDS: SPIRONOLACTONE 50 MG TAB PO SCH (08:21)
[2018-12-08] MEDS: POTASSIUM CHLORIDE (SR) 20 MEQ TAB PO SCH ×2 (08:21→21:32)
[2018-12-08] MEDS: POLYETHYLENE GLYCOL 17 GM PACKET PO SCH (08:21)
[2018-12-08] MEDS: DOCUSATE SODIUM 100 MG CAP PO SCH ×2 (08:21→21:32)
[2018-12-08] MEDS: oxyCODONE (CR) 20 MG TAB [oxyCONTIN] PO SCH ×2 (08:21→21:33)
[2018-12-08] MEDS: BUMETANIDE 0.5 MG TAB PO SCH (08:22)
[2018-12-08] MEDS: ANASTROZOLE 1 MG TAB PO SCH (08:22)
[2018-12-08] MEDS: ESCITALOPRAM 10 MG TAB PO SCH (08:22)
[2018-12-08] MEDS: DICLOFENAC SODIUM 1% GEL 100 GM TUBE TP SCH ×4 (08:23→21:36)
[2018-12-08 08:30] VITALS: BP 95/64; PULSE 81; RESP 18
[2018-12-08 15:02] VITALS: BP 127/74; PULSE 84; RESP 18
--- NOTE | 2018-12-08 15:14 | CONS ---
Consult Date/Type/Reason Admit Date/Time October 21, 2018 at 17:39 Initial Consult Date 10/21/18 Requesting Provider: RUSS JEROME MD Date/Time of Note DATE: 12/08/18 TIME: 15:13 Subjective NO acute events - pt doing well- no CP now. ROS: No fever, no chills, no nausea, no vomiting, no diarrhea/constipation No recent weight changes No chest pain, no PND, no orthopnea - improved sob No dizziness, blurred vision No thirst, no heat or cold intolerance Objective Vitals Vital Signs Date Temp Pulse Resp B/P (MAP) Pulse Ox O2 O2 Flow FiO2 Time Delivery Rate 12/08/18 97.9 81 18 95/64 (74) 92 Room Air 08:30 12/04/18 2.0 08:00 Exam General: WN/WD/NAD, AOx 3 HEENT: Unicetric/atraumatic/EOMI (follows commands) NECK: JVD elevated, no thyromegaly Lymph: no lymphadenopathy HEART: regular with no S3, II/ systolic murmur at apex LUNGS: Coarse sounds ABD: soft, NT, ND, +BS : Intact Neuro: non focal SKIN: chronic changes EXT: trace edema Results/Medications Result Diagram: 12/08/188 12/08/188 Results 24 hrs Laboratory Tests Test 12/08/18 04:18 White Blood Count 3.6 L Red Blood Count 3.83 L Hemoglobin 12.5 Hematocrit 38.2 Mean Corpuscular Volume 99.7 Mean Corpuscular Hemoglobin 32.6 Mean Corpuscular Hemoglobin Concent 32.7 Red Cell Distribution Width 13.4 Platelet Count 145 # Mean Platelet Volume 9.4 Immature Granulocytes % 0.000 L Neutrophils % 37.9 L Lymphocytes % 42.9 Monocytes % 14.8 H Eosinophils % 3.6 Basophils % 0.8 Nucleated Red Blood Cells % 0.0 Immature Granulocytes # 0.000 Neutrophils # 1.4 L Lymphocytes # 1.5 Monocytes # 0.5 Eosinophils # 0.1 Basophils # 0.0 Nucleated Red Blood Cells # 0.0 Sodium Level 139 Potassium Level 3.9 Chloride Level 98 Carbon Dioxide Level 33 H Anion Gap 8 Blood Urea Nitrogen 26 H Creatinine 0.80 Est Glomerular Filtrat Rate mL/min > 60 Glucose Level 107 Calcium Level 8.0 L Home Meds Reported Medications Tuberculin,Purif.prot.deriv. (Tubersol) 5 Tub Unit/0.1 Ml Vial, 0.1 ML ID, VIAL INJECT QHS EVERY 10 DAYS FOR PPD SCREENING FOR 11 DAYS READ IN 48 HOURS,IF NEGATIVE 2STEP IN 7 DAYS FROM FIRST DOSE. 10/21/18 Acetaminophen* (Tylenol*) 325 Mg Tablet, 650 MG PO Q4H PRN for PAIN LEVEL 1- 03/27, TAB 10/21/18 Spironolactone* (Aldactone*) 50 Mg Tablet, 50 MG PO DAILY, #30 TAB HOLD FOR SBP<110 10/21/18 Simethicone* (Mylicon*) 80 Mg Tab, 80 MG PO Q8H, TAB 10/21/18 Olopatadine* (Patanol* Ophth) 0.1% - 5 Ml Drops, 1 DROP BOTH EYES BID, EA 10/21/18 Hydrocodone/Acetaminophen (Onward 10-325 Tablet) 1 Each Tablet, 1 EACH PO Q4H, TAB 10/21/18 Loratadine* (Loratadine*) 10 Mg Tablet, 10 MG PO DAILY for FOR 3 MONTHS, #30 TAB 10/21/18 Lidocaine (Lidocaine) 1 Each Adh..patch, 1 EACH TP DAILY 10/21/18 Ipratropium-Albuterol (Ipratropium-Albuterol) 0.5-3 Mg/3 Ml Ampul.neb, 3 ML INHALATION Q8H, #30 VIAL 10/21/18 Furosemide* (Furosemide*) 40 Mg Tablet, 40 MG PO BID, TAB HOLD FOR SBP<110 10/21/18 Na Phos,M-B/Na Phos,Di-Ba (Fleet Enema Extra) Unknown Strength Enema, 1 APPLIC RC NEEDED for CONSTIPATION, ENEMA 10/21/18 Bisacodyl (Dulcolax) 10 Mg Supp.rect, 10 MG RC NEEDED, SUPP.RECT 10/21/18 Potassium Chloride* (Potassium Chloride*) 20 Meq Tablet.er, 20 MEQ PO DAILY, TAB.SA 09/09/18 Pantoprazole* (Pantoprazole*) 40 Mg Tablet.dr, 40 MG PO AC BREAKFAST, TAB 08/22/18 Oxycodone Hcl* (Oxycontin*) 20 Mg Tab.er.12h, 20 MG PO Q12, TAB 08/22/18 Amlodipine Besylate* (Norvasc*) 5 Mg Tablet, 5 MG PO DAILY, TAB HOLD FOR SBP <110. 08/22/18 Polyethylene Glycol* (Miralax*) 17 Gm Powd.pack, 17 GM PO DAILY, #60 PACKET 08/22/18 Magnesium Hydroxide* (Milk Of Magnesia*) 400 Mg/5 Ml Oral.susp, 30 ML PO DAILY, ML 08/22/18 Escitalopram Oxalate* (Lexapro*) 10 Mg Tablet, 10 MG PO DAILY, #30 TAB 08/22/18 Docusate Sodium* (Colace*) 100 Mg Capsule, 100 MG PO BID, #60 CAP 08/22/18 Carvedilol* (Carvedilol*) 3.125 Mg Tablet, 3.125 MG PO BID, #60 TAB HOLD FOR SBP <110 OR MD <60. GIVE WITH FOOD. 08/22/18 Benazepril Hcl* (Benazepril Hcl*) 5 Mg Tablet, 5 MG PO DAILY, #60 TAB HOLD FOR SBP <110. 08/22/18 Anastrozole* (Arimidex*) 1 Mg Tablet, 1 MG PO DAILY, #30 TAB 08/22/18 Medications Current Medications Morphine Sulfate (morphine) 2 mg Q4H PRN IV SEVERE PAIN LEVEL 7-10 Last administered on 12/07/18at 01:33; Admin Dose 2 MG; Start 10/22/18 at 01:30 Phenol (Cepastat Lozenge) 1 lozenge Q1H PRN MT sore throat Last administered on 10/31/18at 18:34; Admin Dose 1 LOZENGE; Start 10/27/18 at 21:30 Metolazone (Zaroxolyn) 2.5 mg BID@3248,8800 PO Last administered on 12/08/18at 05:18; Admin Dose 2.5 MG; Start 11/01/18 at 05:30 Enoxaparin Sodium (Lovenox) 40 mg DAILY SC Last administered on 11/23/18at 09:02; Admin Dose 40 MG; Start 11/02/18 at 09:00; Status Hold Ibuprofen (Motrin) 400 mg Q6H PRN PO MILD PAIN(1-3) OR TEMP>38C Last administered on 11/24/18at 08:55; Admin Dose 400 MG; Start 11/07/18 at 12:20 Potassium Chloride (Klor-Con 20) 20 meq BID PO Last administered on 12/08/18 08:21; Admin Dose 20 MEQ; Start 11/11/18 at 09:00 Ondansetron HCl (Zofran Inj) 4 mg Q6H PRN IV NAUSEA AND/OR VOMITING Last admin istered on 11/19/18 20:21; Admin Dose 4 MG; Start 11/19/18 at 20:30 Bumetanide (Bumex) 0.5 mg DAILY PO Last administered on 12/08/18 08:22; Admin Dose 0.5 MG; Start 11/20/18 at 09:00 Diphenhydramine HCl (Benadryl) 25 mg Q8H PRN PO ITCHING Last administered on 12/08/18 00:19; Admin Dose 25 MG; Start 11/20/18 at 14:00 Bisacodyl (Dulcolax Supp) 10 mg Q8H PRN MD CONSTIPATION; Start 11/20/18 at 17:30 Guaifenesin/ Codeine Phosphate (Robitussin Ac Liquid Cup) 10 ml Q4H PRN PO COUGH; Start 11/20/18 at 17:30 Magnesium Hydroxide (Milk Of Mag) 30 ml DAILY PRN PO CONSTIPATION Last administered on 11/24/18at 08:45; Admin Dose 30 ML; Start 11/20/18 at 17:30 Simethicone (Mylicon) 80 mg Q8H PRN PO INDIGESTION; Start 11/20/18 at 23:30 Escitalopram Oxalate (Lexapro) 10 mg DAILY PO Last administered on 12/08/18 08:22; Admin Dose 10 MG; Start 11/24/18 at 19:00 Anastrozole (Arimidex) 1 mg DAILY PO Last administered on 12/08/18 08:22; Admin Dose 1 MG; Start 11/25/18 at 10:30 Carvedilol (Coreg) 3.125 mg BID PO Last administered on 12/07/18 09:17; Admin Dose 3.125 MG; Start 11/25/18 at 10:30 Docusate Sodium (Colace) 100 mg BID PO Last administered on 12/08/18 08:21; Admin Dose 100 MG; Start 11/25/18 at 10:30 Loratadine (Claritin) 10 mg DAILY PO Last administered on 12/08/18 08:21; Admin Dose 10 MG; Start 11/25/18 at 10:30 Pantoprazole (Protonix Tab) 40 mg AC BREAKFAST PO Last administered on 12/08/18 05:17; Admin Dose 40 MG; Start 11/25/18 at 10:30 Polyethylene Glycol (Miralax) 17 gm DAILY PO Last administered on 12/08/18 08:21; Admin Dose 17 GM; Start 11/25/18 at 10:30 Spironolactone (Aldactone) 50 mg DAILY PO Last administered on 12/08/18 08:21; Admin Dose 50 MG; Start 11/25/18 at 10:30 Diclofenac Sodium (Voltaren 1% Gel) 2 gm QID TP Last administered on 12/08/18 13:45; Admin Dose 2 GM; Start 11/27/18 at 22:00 Oxycodone HCl (Oxycontin) 20 mg BID PO Last administered on 12/08/18 08:21; Admin Dose 20 MG; Start 12/01/18 at 09:00 Budesonide (Pulmicort (Neb)) 0.5 mg BID RESP THERAPY PRN HHN WHEEZING; Start 12/01/18 at 13:00 Zolpidem Tartrate (Ambien) 10 mg HS PRN PO INSOMNIA; Start 12/02/18 at 20:00 Ergocalciferol (Drisdol) 50,000 unit Q7D PO Last administered on 12/03/18 17:57; Admin Dose 50,000 UNIT; Start 12/03/18 at 16:00 Assessment/Plan Hospital Course (Demo Recall) 1. Congestive heart failure exacerbation would be diastolic, acute on chronic by most recent echo.-now s/p echo this admit with EF 60/small effusion - better now, responding to diuresis. BETTER overall- very robust urine output - improved CHF. 2. Abnormal electrocardiogram with low voltage, rule out pericardial effusion - stable, no signs of tamponade. Treated. Off tele now. NO intervention planned. Stable. 3. Hypertension-currently borderline hypotension - treated with meds. BP stable overall. Tolerated Rx well. 4. Metastatic breast carcinoma- responded to chemo per Dr. Fernández - still poor prognosis. Traeted - hair beginning to grow back. Last effusion drainage a week ago - better. 5. History of pathologic fractures of the leg, status post open reduction and internal fixation - pain controlled. 6. Anemia =- Rx per hem-onc team. Rx as needed. 7. Increased BNP consistent with patient's congestive heart failure. 8. Pericardial effusion-small by echo 8. Cough - con't anti-bx now. EMILY NELSON MD Dec 08, 2018 15:14
[2018-12-08 19:46] VITALS: BP 94/66; PULSE 92; RESP 16
--- NOTE | 2018-12-08 22:28 | CONS ---
Assessment/Plan Assessment/Plan Hospital Course (Demo Recall) METASTATIC BREAST CANCER WITH PRIMARY ADENOCARCINOMA IN the left breast. MULTIPLE BONY METS, PULMONARY METS, LIVER METS CHEMO ON HOLD PT HAS A VERY GOOD RESPONSE TO CHEMO AND AI CONT AI FOR NOW CT ABD FOR RESTAGING 08.27.18, 12.04.18 - noted , stable POST aredia Leukopenia- post chemo, FLUCTUATING post NEUPOGEN monitor closely post Neutropenia with occasional fever and chills. - resolved Anemia chronic disease SOB PLEURAL EFFUSIONS, NEG CYTOLOGY POST thoracentesis Fluid overload diuretic cardiology F-UP Severe pain in the interscapular and lumbar sacral area most probably metastatic lesion possible femoral fracture. pathologic fracture of T9 with 60% of loss of height. Bony pain with multiple bony mets post XRT d/w dr Ocampo HYPOKALEMIA- REPLACED Obesity. Weight loss 60 pounds during the last 2 years COUGH, Upper respiratory infection pharyngitis with dry cough. POST ATB PMS. Myopia. Anxiety disorder. Claustrophobia. Posttraumatic stress disorder. Pain in the left forearm with a history of fracture of ulna and radius. Tachycardia Hypoxemia at night marginal improved after 2 L of nasal cannula oxygen. Deconditioning Pain syndrome. Today the most painful zone is in the right hip area. X-ray did not show any fractures. Hyponatremia- resolved Hypoalbuminemia Right sided cp after catheter insertion and correction less discomfort. Decreased edema both lower extremities with hypotension-improving Swelling of the left forearm-persist. Consultation Date/Type/Reason Admit Date/Time October 21, 2018 at 17:39 Initial Consult Date 10/21/18 Type of Consult [facility] Requesting Provider: RUSS JEROME MD Date/Time of Note DATE: 12/08/18 TIME: 22:28 24 HR Interval Summary Free Text/Dictation ALL NOTED NAD Exam/Review of Systems Exam Vitals Vital Signs Date Temp Pulse Resp B/P (MAP) Pulse Ox O2 O2 Flow FiO2 Time Delivery Rate 12/08/18 98.3 92 16 94/66 (75) 98 Room Air 19:46 12/04/18 2.0 08:00 Exam Constitutional: alert, oriented, well developed, distress, frail; No non-verbal, No obese, No other Psych: nl mood/affect, anxiety, depression; No no complaints, No confusion, No suicidal, No other Head: normocephalic, atraumatic; No lacerations, No hematomas, No other Eyes: EOMI, nl lids, PERRL; No nl conjunctiva, No nl sclera, No icteric, No fundi, disc, No other ENMT: nl lips & teeth, tympanic membranes; No nl external ears & nose, No nl nasal mucosa & septum, No mucosa pink and moist, No intubated, No other Neck: jvd, bruits; No supple, No non-tender, No masses, No thyromegaly, No nuchal rigidity, No other Respiratory: clear to auscultation (Upper parts with pleural friction rub lower parts.), congested cough, diminished breath sounds; No normal air movement, No crackles/rales, No intercostal retraction, No labored breathing, No respirations, No tactile fremitus, No wheezing, No other Cardiovascular: regular rate and rhythm, edema, systolic murmur; No nl pulses, No bruits, No diastolic murmur, No gallop, No irregular rhythm, No jugular venous distention (JVD), No murmurs/extra sounds, No rub, No S3, No S4, No other Gastrointestinal: soft, nl liver, spleen, bowel sounds; No non-tender, No ascites, No distended, No firm, No hepatomegaly, No mass, No rebound or guarding, No splenomegaly, No surgical scars, No tender, No other Musculoskeletal: joint tenderness, muscle tone, muscle weakness; No nl extremities to inspection, No nl gait and stance, No range of motion, No spine non-tender, No swelling, No other Extremities: No normal pulses, No calf tenderness, No cyanosis, No clubbing, No edema, No pitting pedal edema, No palpable cord, No tenderness, No other Neurological: [employer] 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; No nl mental status, No nl speech, No nl strength, No confused, No DTR's symmetric, No focal weakness, No lethargic, No numbness, No reflexes, No unresponsive, No other Skin: No nl turgor, No rash or lesions, No diaphoresis, No ecchymosis, No laceration, No puncture, No other Lymph: No nl lymph nodes, No enlarged, No nontender, No other Results Result Diagram: 12/08/18 0418 12/08/18417 Results 24hrs Laboratory Tests Test 12/08/18 04:18 White Blood Count 3.6 L Red Blood Count 3.83 L Hemoglobin 12.5 Hematocrit 38.2 Mean Corpuscular Volume 99.7 Mean Corpuscular Hemoglobin 32.6 Mean Corpuscular Hemoglobin Concent 32.7 Red Cell Distribution Width 13.4 Platelet Count 145 # Mean Platelet Volume 9.4 Immature Granulocytes % 0.000 L Neutrophils % 37.9 L Lymphocytes % 42.9 Monocytes % 14.8 H Eosinophils % 3.6 Basophils % 0.8 Nucleated Red Blood Cells % 0.0 Immature Granulocytes # 0.000 Neutrophils # 1.4 L Lymphocytes # 1.5 Monocytes # 0.5 Eosinophils # 0.1 Basophils # 0.0 Nucleated Red Blood Cells # 0.0 Sodium Level 139 Potassium Level 3.9 Chloride Level 98 Carbon Dioxide Level 33 H Anion Gap 8 Blood Urea Nitrogen 26 H Creatinine 0.80 Est Glomerular Filtrat Rate mL/min > 60 Glucose Level 107 Calcium Level 8.0 L Medications Medication Current Medications Morphine Sulfate (morphine) 2 mg Q4H PRN IV SEVERE PAIN LEVEL 7-10 Last administered on 12/07/18 01:33; Admin Dose 2 MG; Start 10/22/18 at 01:30 Phenol (Cepastat Lozenge) 1 lozenge Q1H PRN MT sore throat Last administered on 10/31/18 18:34; Admin Dose 1 LOZENGE; Start 10/27/18 at 21:30 Metolazone (Zaroxolyn) 2.5 mg BID@0530,1730 PO Last administered on 12/08/18 17:56; Admin Dose 2.5 MG; Start 11/01/18 at 05:30 Enoxaparin Sodium (Lovenox) 40 mg DAILY SC Last administered on 11/23/18 09:02; Admin Dose 40 MG; Start 11/02/18 at 09:00; Status Hold Ibuprofen (Motrin) 400 mg Q6H PRN PO MILD PAIN(1-3) OR TEMP>38C Last administered on 11/24/18 08:55; Admin Dose 400 MG; Start 11/07/18 at 12:20 Potassium Chloride (Klor-Con 20) 20 meq BID PO Last administered on 12/08/18 21:32; Admin Dose 20 MEQ; Start 11/11/18 at 09:00 Ondansetron HCl (Zofran Inj) 4 mg Q6H PRN IV NAUSEA AND/OR VOMITING Last administered on 11/19/18 20:21; Admin Dose 4 MG; Start 11/19/18 at 20:30 Bumetanide (Bumex) 0.5 mg DAILY PO Last administered on 12/08/18 08:22; Admin Dose 0.5 MG; Start 11/20/18 at 09:00 Diphenhydramine HCl (Benadryl) 25 mg Q8H PRN PO ITCHING Last administered on 12/08/18 00:19; Admin Dose 25 MG; Start 11/20/18 at 14:00 Bisacodyl (Dulcolax Supp) 10 mg Q8H PRN [place] CONSTIPATION; Start 11/20/18 at 17:30 Guaifenesin/ Codeine Phosphate (Robitussin Ac Liquid Cup) 10 ml Q4H PRN PO COUGH; Start 11/20/18 at 17:30 Magnesium Hydroxide (Milk Of Mag) 30 ml DAILY PRN PO CONSTIPATION Last administered on 11/24/18 08:45; Admin Dose 30 ML; Start 11/20/18 at 17:30 Simethicone (Mylicon) 80 mg Q8H PRN PO INDIGESTION; Start 11/20/18 at 23:30 Escitalopram Oxalate (Lexapro) 10 mg DAILY PO Last administered on 12/08/18 08:22; Admin Dose 10 MG; Start 11/24/18 at 19:00 Anastrozole (Arimidex) 1 mg DAILY PO Last administered on 12/08/18 08:22; Admin Dose 1 MG; Start 11/25/18 at 10:30 Carvedilol (Coreg) 3.125 mg BID PO Last administered on 12/07/18 09:17; Admin Dose 3.125 MG; Start 11/25/18 at 10:30 Docusate Sodium (Colace) 100 mg BID PO Last administered on 12/08/18 21:32; Admin Dose 100 MG; Start 11/25/18 at 10:30 Loratadine (Claritin) 10 mg DAILY PO Last administered on 12/08/18 08:21; Admin Dose 10 MG; Start 11/25/18 at 10:30 Pantoprazole (Protonix Tab) 40 mg AC BREAKFAST PO Last administered on 12/08/18 05:17; Admin Dose 40 MG; Start 11/25/18 at 10:30 Polyethylene Glycol (Miralax) 17 gm DAILY PO Last administered on 12/08/18 08:21; Admin Dose 17 GM; Start 11/25/18 at 10:30 Spironolactone (Aldactone) 50 mg DAILY PO Last administered on 12/08/18 08:21; Admin Dose 50 MG; Start 11/25/18 at 10:30 Diclofenac Sodium (Voltaren 1% Gel) 2 gm QID TP Last administered on 12/08/18 21:36; Admin Dose 2 GM; Start 11/27/18 at 22:00 Oxycodone HCl (Oxycontin) 20 mg BID PO Last administered on 12/08/18 21:33; Admin Dose 20 MG; Start 12/01/18 at 09:00 Budesonide (Pulmicort (Neb)) 0.5 mg BID RESP THERAPY PRN HHN WHEEZING; Start 12/01/18 at 13:00 Zolpidem Tartrate (Ambien) 10 mg HS PRN PO INSOMNIA; Start 12/02/18 at 20:00 Ergocalciferol (Drisdol) 50,000 unit Q7D PO Last administered on 12/03/18at 17:57; Admin Dose 50,000 UNIT; Start 12/03/18 at 16:00 Neomycin/ Polymyxin/ Hydrocortisone (Cortisporin Otic Susp) 4 drop TID LEFT EAR ; Start 12/08/18 at 23:00; Stop 12/13/18 at 22:59 DES DUNAWAY MD Dec 08, 2018 22:28
[2018-12-08] MEDS: NEOMYC/POLYMYX/HC 10 ML OTIC SUSP LEFT EAR SCH (23:00)
[2018-12-09] MEDS: IBUPROFEN 400 MG TAB PO PRN (02:07)
[2018-12-09 03:23] VITALS: BP 102/70; PULSE 78; RESP 18
[2018-12-09] MEDS: PANTOPRAZOLE (EC) 40 MG TAB PO SCH (06:17)
[2018-12-09] MEDS: METOLAZONE 2.5 MG TAB PO SCH ×2 (06:19→17:33)
[2018-12-09 08:03] VITALS: BP 128/74; PULSE 87; RESP 19
[2018-12-09] MEDS: SPIRONOLACTONE 50 MG TAB PO SCH (08:18)
[2018-12-09] MEDS: POLYETHYLENE GLYCOL 17 GM PACKET PO SCH (08:18)
[2018-12-09] MEDS: BUMETANIDE 0.5 MG TAB PO SCH (08:18)
[2018-12-09] MEDS: POTASSIUM CHLORIDE (SR) 20 MEQ TAB PO SCH ×2 (08:18→21:03)
[2018-12-09] MEDS: ESCITALOPRAM 10 MG TAB PO SCH (08:18)
[2018-12-09] MEDS: DOCUSATE SODIUM 100 MG CAP PO SCH ×2 (08:18→21:03)
[2018-12-09] MEDS: LORATADINE 10 MG TAB PO SCH (08:18)
[2018-12-09] MEDS: oxyCODONE (CR) 20 MG TAB [oxyCONTIN] PO SCH ×2 (08:19→21:03)
[2018-12-09] MEDS: NEOMYC/POLYMYX/HC 10 ML OTIC SUSP LEFT EAR SCH ×3 (08:20→21:03)
[2018-12-09] MEDS: ANASTROZOLE 1 MG TAB PO SCH (08:20)
[2018-12-09] MEDS: DICLOFENAC SODIUM 1% GEL 100 GM TUBE TP SCH ×4 (08:21→21:04)
--- NOTE | 2018-12-09 12:22 | CONS ---
Assessment/Plan Assessment/Plan Hospital Course (Demo Recall) IMPRESSION: 1. Congestive heart failure exacerbation would be diastolic, acute on chronic by most recent echo.-now s/p echo this admit with EF 60/small effusion 2. Abnormal electrocardiogram with low voltage, rule out pericardial effusion. 3. Hypertension-currently borderline hypotension 4. Metastatic breast carcinoma. 5. History of pathologic fractures of the leg, status post open reduction and internal fixation. 6. Anemia. 7. Increased BNP consistent with patient's congestive heart failure. 8. Pericardial effusion-small by echo 9. Edema-LE venous RAMÍREZ neg for DVT 10. Hypokalemia 11.Wrist fracture acute by films 11/20-conservative management at this time 12. Pleural effusion s/p thoracentesis today Recc: -On med-surg -Continued on metolazone and low dose PO bumex and on aldactone with overall reasonable volume status and resolution of much of LLE edema -renal and onc following and now endocrine for bone density -continue low dose coreg -currently conservative management of wrist fracture Consultation Date/Type/Reason Admit Date/Time October 21, 2018 at 17:39 Initial Consult Date 10/21/18 Type of Consult Cardiology Reason for Consultation chf Requesting Provider: RUSS JEROME MD Date/Time of Note DATE: 12/09/18 TIME: 12:21 Exam/Review of Systems Vital Signs Vitals Vital Signs Date Temp Pulse Resp B/P (MAP) Pulse Ox O2 O2 Flow FiO2 Time Delivery Rate 12/09/18 98.1 87 19 128/74 96 08:03 (92) 12/09/18 Room Air 03:23 Intake and Output 12/08/18 12/08/18 12/09/18 1515:00 23:00 07:00 IntakeIntake Total 380 ml 440 ml 360 ml BalanceBalance 380 ml 440 ml 360 ml Exam Exam Review of Systems: CONSTITUTIONAL: No fevers, chills. PULMONARY: No sob CARDIOVASCULAR: No chest pain/palpitations GASTROINTESTINAL: No nausea/vomiting. GENITOURINARY: No hematuria/dysuria. MUSCULOSKELETAL: No myagias/arthalgias. PSYCHIATRIC: The patient denies depression. NEUROLOGIC: No weakness Constitutional: alert Psych: no complaints Head: normocephalic ENMT: mucosa pink and moist Neck: supple, jvd (9 cm water) Respiratory: diminished breath sounds Cardiovascular: regular rate and rhythm Gastrointestinal: soft, non-tender Musculoskeletal: muscle tone (normal) Extremities: edema Neurological: other (no focal deficits) Labs Result Diagram: 12/08/1841712/08/18417 Medications Medications Current Medications Morphine Sulfate (morphine) 2 mg Q4H PRN IV SEVERE PAIN LEVEL 7-10 Last administered on 12/07/18 01:33; Admin Dose 2 MG; Start 10/22/18 at 01:30 Phenol (Cepastat Lozenge) 1 lozenge Q1H PRN MT sore throat Last administered on 10/31/18 18:34; Admin Dose 1 LOZENGE; Start 10/27/18 at 21:30 Metolazone (Zaroxolyn) 2.5 mg BID@0530,1730 PO Last administered on 12/09/18 06:19; Admin Dose 2.5 MG; Start 11/01/18 at 05:30 Enoxaparin Sodium (Lovenox) 40 mg DAILY SC Last administered on 11/23/18 09:02; Admin Dose 40 MG; Start 11/02/18 at 09:00; Status Hold Ibuprofen (Motrin) 400 mg Q6H PRN PO MILD PAIN(1-3) OR TEMP>38C Last administered on 12/09/18 02:07; Admin Dose 400 MG; Start 11/07/18 at 12:20 Potassium Chloride (Klor-Con 20) 20 meq BID PO Last administered on 12/09/18 08:18; Admin Dose 20 MEQ; Start 11/11/18 at 09:00 Ondansetron HCl (Zofran Inj) 4 mg Q6H PRN IV NAUSEA AND/OR VOMITING Last administered on 11/19/18 20:21; Admin Dose 4 MG; Start 11/19/18 at 20:30 Bumetanide (Bumex) 0.5 mg DAILY PO Last administered on 12/09/18 08:18; Admin Dose 0.5 MG; Start 11/20/18 at 09:00 Diphenhydramine HCl (Benadryl) 25 mg Q8H PRN PO ITCHING Last administered on 12/08/18 23:57; Admin Dose 25 MG; Start 11/20/18 at 14:00 Bisacodyl (Dulcolax Supp) 10 mg Q8H PRN [place] CONSTIPATION; Start 11/20/18 at 17:30 Guaifenesin/ Codeine Phosphate (Robitussin Ac Liquid Cup) 10 ml Q4H PRN PO COUGH; Start 11/20/18 at 17:30 Magnesium Hydroxide (Milk Of Mag) 30 ml DAILY PRN PO CONSTIPATION Last administered on 11/24/18 08:45; Admin Dose 30 ML; Start 11/20/18 at 17:30 Simethicone (Mylicon) 80 mg Q8H PRN PO INDIGESTION; Start 11/20/18 at 23:30 Escitalopram Oxalate (Lexapro) 10 mg DAILY PO Last administered on 12/09/18 08:18; Admin Dose 10 MG; Start 11/24/18 at 19:00 Anastrozole (Arimidex) 1 mg DAILY PO Last administered on 12/09/18 08:20; Admin Dose 1 MG; Start 11/25/18 at 10:30 Carvedilol (Coreg) 3.125 mg BID PO Last administered on 12/09/18 08:20; Admin Dose 3.125 MG; Start 11/25/18 at 10:30 Docusate Sodium (Colace) 100 mg BID PO Last administered on 12/09/18 08:18; Admin Dose 100 MG; Start 11/25/18 at 10:30 Loratadine (Claritin) 10 mg DAILY PO Last administered on 12/09/18 08:18; Admin Dose 10 MG; Start 11/25/18 at 10:30 Pantoprazole (Protonix Tab) 40 mg AC BREAKFAST PO Last administered on 12/09/18 06:17; Admin Dose 40 MG; Start 11/25/18 at 10:30 Polyethylene Glycol (Miralax) 17 gm DAILY PO Last administered on 12/09/18 08:18; Admin Dose 17 GM; Start 11/25/18 at 10:30 Spironolactone (Aldactone) 50 mg DAILY PO Last administered on 12/09/18 08:18; Admin Dose 50 MG; Start 11/25/18 at 10:30 Diclofenac Sodium (Voltaren 1% Gel) 2 gm QID TP Last administered on 12/09/18 12:17; Admin Dose 2 GM; Start 11/27/18 at 22:00 Oxycodone HCl (Oxycontin) 20 mg BID PO Last administered on 12/09/18at 08:19; Admin Dose 20 MG; Start 12/01/18 at 09:00 Budesonide (Pulmicort (Neb)) 0.5 mg BID RESP THERAPY PRN HHN WHEEZING; Start 12/01/18 at 13:00 Zolpidem Tartrate (Ambien) 10 mg HS PRN PO INSOMNIA; Start 12/02/18 at 20:00 Ergocalciferol (Drisdol) 50,000 unit Q7D PO Last administered on 12/03/18at 17:57; Admin Dose 50,000 UNIT; Start 12/03/18 at 16:00 Neomycin/ Polymyxin/ Hydrocortisone (Cortisporin Otic Susp) 4 drop TID LEFT EAR Last administered on 12/09/18at 12:17; Admin Dose 4 DROP; Start 12/08/18 at 23:00; Stop 12/13/18 at 22:59 KAMILA TERESA Dec 09, 2018 12:22
--- NOTE | 2018-12-09 12:34 | PN ---
Date/Time of Note Date/Time of Note DATE: 12/09/18 TIME: 12:33 Assessment/Plan VTE Prophylaxis Risk score (from Ns)>0 risk: 10 SCD applied (from Nsg): Yes Pharmacological prophylaxis: other Lines/Catheters IV Catheter Type (from Nrsg): PORT-A-CATH Urinary Cath still in place: No Assessment/Plan Hospital Course Patient remains hemodynamically stable, denies shortness of breath, denies any chest pain. Patient is able to ambulate using a walker. Pending placement to senior care facility. Assessment/Plan -Metastatic left breast cancer with pulmonary, liver, and bone involvement. S/p chemo which is on hold now. Continued on Arimidex. Dr. Fernández is following in oncology consultation. -Recurrent pleural effusions requiring bilateral thoracentesis -Diastolic congestive heart failure, patient is currently on Aldactone, Bumex, and Coreg. Dr. Hurtado is following in cardiology consultation. -Acute on chronic pain, continue OxyContin twice daily and morphine as needed -Status post R hip arthroplasty due to lytic fracture -Status post recent fall with left wrist fracture that is being treated conservatively -Left lower extremity lymphedema -Obesity Further recommendations based on clinical course. Plan of care discussed with Dr. Peñaloza. Result Diagram: 12/08/1841712/08/18417 Exam/Review of Systems Exam Vitals Vital Signs Date Temp Pulse Resp B/P (MAP) Pulse Ox O2 O2 Flow FiO2 Time Delivery Rate 12/09/18 98.1 87 19 128/74 96 08:03 (92) 12/09/18 Room Air 03:23 Intake and Output 12/08/18 12/08/18 12/09/18 1515:00 23:00 07:00 IntakeIntake Total 380 ml 440 ml 360 ml BalanceBalance 380 ml 440 ml 360 ml Constitutional: alert, oriented Head: normocephalic Neck: supple Respiratory: clear to auscultation Cardiovascular: nl pulses Gastrointestinal: soft, non-tender Extremities: edema Neurological: nl mental status Skin: nl turgor Additional Comments Right chest Port-A-Cath Medications Medication Current Medications Morphine Sulfate (morphine) 2 mg Q4H PRN IV SEVERE PAIN LEVEL 7-10 Last administered on 12/07/18at 01:33; Admin Dose 2 MG; Start 10/22/18 at 01:30 Phenol (Cepastat Lozenge) 1 lozenge Q1H PRN MT sore throat Last administered on 10/31/18 18:34; Admin Dose 1 LOZENGE; Start 10/27/18 at 21:30 Metolazone (Zaroxolyn) 2.5 mg BID@0530,1730 PO Last administered on 12/09/18 06:19; Admin Dose 2.5 MG; Start 11/01/18 at 05:30 Enoxaparin Sodium (Lovenox) 40 mg DAILY SC Last administered on 11/23/18 09:02; Admin Dose 40 MG; Start 11/02/18 at 09:00; Status Hold Ibuprofen (Motrin) 400 mg Q6H PRN PO MILD PAIN(1-3) OR TEMP>38C Last administered on 12/09/18 02:07; Admin Dose 400 MG; Start 11/07/18 at 12:20 Potassium Chloride (Klor-Con 20) 20 meq BID PO Last administered on 12/09/18 08:18; Admin Dose 20 MEQ; Start 11/11/18 at 09:00 Ondansetron HCl (Zofran Inj) 4 mg Q6H PRN IV NAUSEA AND/OR VOMITING Last administered on 11/19/18 20:21; Admin Dose 4 MG; Start 11/19/18 at 20:30 Bumetanide (Bumex) 0.5 mg DAILY PO Last administered on 12/09/18 08:18; Admin Dose 0.5 MG; Start 11/20/18 at 09:00 Diphenhydramine HCl (Benadryl) 25 mg Q8H PRN PO ITCHING Last administered on 12/08/18at 23:57; Admin Dose 25 MG; Start 11/20/18 at 14:00 Bisacodyl (Dulcolax Supp) 10 mg Q8H PRN [place] CONSTIPATION; Start 11/20/18 at 17:30 Guaifenesin/ Codeine Phosphate (Robitussin Ac Liquid Cup) 10 ml Q4H PRN PO COUGH; Start 11/20/18 at 17:30 Magnesium Hydroxide (Milk Of Mag) 30 ml DAILY PRN PO CONSTIPATION Last administered on 11/24/18 08:45; Admin Dose 30 ML; Start 11/20/18 at 17:30 Simethicone (Mylicon) 80 mg Q8H PRN PO INDIGESTION; Start 11/20/18 at 23:30 Escitalopram Oxalate (Lexapro) 10 mg DAILY PO Last administered on 12/09/18 08:18; Admin Dose 10 MG; Start 11/24/18 at 19:00 Anastrozole (Arimidex) 1 mg DAILY PO Last administered on 12/09/18 08:20; Admin Dose 1 MG; Start 11/25/18 at 10:30 Carvedilol (Coreg) 3.125 mg BID PO Last administered on 12/09/18 08:20; Admin Dose 3.125 MG; Start 11/25/18 at 10:30 Docusate Sodium (Colace) 100 mg BID PO Last administered on 12/09/18 08:18; Admin Dose 100 MG; Start 11/25/18 at 10:30 Loratadine (Claritin) 10 mg DAILY PO Last administered on 12/09/18 08:18; Admin Dose 10 MG; Start 11/25/18 at 10:30 Pantoprazole (Protonix Tab) 40 mg AC BREAKFAST PO Last administered on 12/09/18 06:17; Admin Dose 40 MG; Start 11/25/18 at 10:30 Polyethylene Glycol (Miralax) 17 gm DAILY PO Last administered on 12/09/18 08:18; Admin Dose 17 GM; Start 11/25/18 at 10:30 Spironolactone (Aldactone) 50 mg DAILY PO Last administered on 12/09/18 08:18; Admin Dose 50 MG; Start 11/25/18 at 10:30 Diclofenac Sodium (Voltaren 1% Gel) 2 gm QID TP Last administered on 12/09/18 12:17; Admin Dose 2 GM; Start 11/27/18 at 22:00 Oxycodone HCl (Oxycontin) 20 mg BID PO Last administered on 12/09/18 08:19; Admin Dose 20 MG; Start 12/01/18 at 09:00 Budesonide (Pulmicort (Neb)) 0.5 mg BID RESP THERAPY PRN HHN WHEEZING; Start 12/01/18 at 13:00 Zolpidem Tartrate (Ambien) 10 mg HS PRN PO INSOMNIA; Start 12/02/18 at 20:00 Ergocalciferol (Drisdol) 50,000 unit Q7D PO Last administered on 12/03/18at 17:57; Admin Dose 50,000 UNIT; Start 12/03/18 at 16:00 Neomycin/ Polymyxin/ Hydrocortisone (Cortisporin Otic Susp) 4 drop TID LEFT EAR Last administered on 12/09/18at 12:17; Admin Dose 4 DROP; Start 12/08/18 at 23:00; Stop 12/13/18 at 22:59 YEISON SOLIZ Dec 09, 2018 12:34
[2018-12-09 15:33] VITALS: BP 11/68; PULSE 87; RESP 18
[2018-12-09 20:33] VITALS: BP 119/70; PULSE 95; RESP 18
[2018-12-09] MEDS: morphine 2 MG INJ IV PRN (22:33)
--- NOTE | 2018-12-09 23:01 | CONS ---
Assessment/Plan Assessment/Plan Hospital Course (Demo Recall) METASTATIC BREAST CANCER WITH PRIMARY ADENOCARCINOMA IN the left breast. MULTIPLE BONY METS, PULMONARY METS, LIVER METS CHEMO ON HOLD PT HAS A VERY GOOD RESPONSE TO CHEMO AND AI CONT AI FOR NOW CT ABD FOR RESTAGING 08.27.18, 12.04.18 - noted , stable POST aredia Leukopenia- post chemo, FLUCTUATING post NEUPOGEN monitor closely post Neutropenia with occasional fever and chills. - resolved Anemia chronic disease SOB PLEURAL EFFUSIONS, NEG CYTOLOGY POST thoracentesis Fluid overload diuretic cardiology F-UP Severe pain in the interscapular and lumbar sacral area most probably metastatic lesion possible femoral fracture. pathologic fracture of T9 with 60% of loss of height. Bony pain with multiple bony mets post XRT d/w dr Ocampo HYPOKALEMIA- REPLACED Obesity. Weight loss 60 pounds during the last 2 years COUGH, Upper respiratory infection pharyngitis with dry cough. POST ATB PMS. Myopia. Anxiety disorder. Claustrophobia. Posttraumatic stress disorder. Pain in the left forearm with a history of fracture of ulna and radius. Tachycardia Hypoxemia at night marginal improved after 2 L of nasal cannula oxygen. Deconditioning Pain syndrome. Today the most painful zone is in the right hip area. X-ray did not show any fractures. Hyponatremia- resolved Hypoalbuminemia Right sided cp after catheter insertion and correction less discomfort. Decreased edema both lower extremities with hypotension-improving Swelling of the left forearm-persist. Consultation Date/Type/Reason Admit Date/Time October 21, 2018 at 17:39 Initial Consult Date 10/21/18 Type of Consult [facility] Requesting Provider: RUSS JEROME MD Date/Time of Note DATE: 12/09/18 TIME: 23:00 24 HR Interval Summary Free Text/Dictation NAD Exam/Review of Systems Exam Vitals Vital Signs Date Temp Pulse Resp B/P (MAP) Pulse Ox O2 O2 Flow FiO2 Time Delivery Rate 12/09/18 97.7 95 18 119/70 93 Room Air 20:33 (86) Intake and Output 12/08/18 12/08/18 12/09/18 1515:00 23:00 07:00 IntakeIntake Total 380 ml 440 ml 360 ml BalanceBalance 380 ml 440 ml 360 ml Exam Constitutional: alert, oriented, well developed, distress, frail; No non-verbal, No obese, No other Psych: nl mood/affect, anxiety, depression; No no complaints, No confusion, No suicidal, No other Head: normocephalic, atraumatic; No lacerations, No hematomas, No other Eyes: EOMI, nl lids, PERRL; No nl conjunctiva, No nl sclera, No icteric, No fundi, disc, No other ENMT: nl lips & teeth, tympanic membranes; No nl external ears & nose, No nl nasal mucosa & septum, No mucosa pink and moist, No intubated, No other Neck: jvd, bruits; No supple, No non-tender, No masses, No thyromegaly, No nuchal rigidity, No other Respiratory: clear to auscultation (Upper parts with pleural friction rub lower parts.), congested cough, diminished breath sounds; No normal air movement, No crackles/rales, No intercostal retraction, No labored breathing, No respirations, No tactile fremitus, No wheezing, No other Cardiovascular: regular rate and rhythm, edema, systolic murmur; No nl pulses, No bruits, No diastolic murmur, No gallop, No irregular rhythm, No jugular venous distention (JVD), No murmurs/extra sounds, No rub, No S3, No S4, No other Gastrointestinal: soft, nl liver, spleen, bowel sounds; No non-tender, No ascites, No distended, No firm, No hepatomegaly, No mass, No rebound or guarding, No splenomegaly, No surgical scars, No tender, No other Musculoskeletal: joint tenderness, muscle tone, muscle weakness; No nl extremities to inspection, No nl gait and stance, No range of motion, No spine non-tender, No swelling, No other Extremities: No normal pulses, No calf tenderness, No cyanosis, No clubbing, No edema, No pitting pedal edema, No palpable cord, No tenderness, No other Neurological: SENIOR CATEGORY MANAGER 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; No nl mental status, No nl speech, No nl strength, No confused, No DTR's symmetric, No focal weakness, No lethargic, No numbness, No reflexes, No unresponsive, No other Skin: No nl turgor, No rash or lesions, No diaphoresis, No ecchymosis, No laceration, No puncture, No other Lymph: No nl lymph nodes, No enlarged, No nontender, No other Results Result Diagram: 12/08/188 12/08/188 Medications Medication Current Medications Morphine Sulfate (morphine) 2 mg Q4H PRN IV SEVERE PAIN LEVEL 7-10 Last administered on 12/09/18 22:33; Admin Dose 2 MG; Start 10/22/18 at 01:30 Phenol (Cepastat Lozenge) 1 lozenge Q1H PRN MT sore throat Last administered on 10/31/18 18:34; Admin Dose 1 LOZENGE; Start 10/27/18 at 21:30 Metolazone (Zaroxolyn) 2.5 mg BID@6075,1580 PO Last administered on 12/09/18 17:33; Admin Dose 2.5 MG; Start 11/01/18 at 05:30 Enoxaparin Sodium (Lovenox) 40 mg DAILY SC Last administered on 11/23/18 09:02; Admin Dose 40 MG; Start 11/02/18 at 09:00; Status Hold Ibuprofen (Motrin) 400 mg Q6H PRN PO MILD PAIN(1-3) OR TEMP>38C Last administered on 12/09/18 02:07; Admin Dose 400 MG; Start 11/07/18 at 12:20 Potassium Chloride (Klor-Con 20) 20 meq BID PO Last administered on 12/09/18 21:03; Admin Dose 20 MEQ; Start 11/11/18 at 09:00 Ondansetron HCl (Zofran Inj) 4 mg Q6H PRN IV NAUSEA AND/OR VOMITING Last administered on 11/19/18 20:21; Admin Dose 4 MG; Start 11/19/18 at 20:30 Bumetanide (Bumex) 0.5 mg DAILY PO Last administered on 12/09/18 08:18; Admin Dose 0.5 MG; Start 11/20/18 at 09:00 Diphenhydramine HCl (Benadryl) 25 mg Q8H PRN PO ITCHING Last administered on 12/08/18 23:57; Admin Dose 25 MG; Start 11/20/18 at 14:00 Bisacodyl (Dulcolax Supp) 10 mg Q8H PRN [place] CONSTIPATION; Start 11/20/18 at 17:30 Guaifenesin/ Codeine Phosphate (Robitussin Ac Liquid Cup) 10 ml Q4H PRN PO COUGH; Start 11/20/18 at 17:30 Magnesium Hydroxide (Milk Of Mag) 30 ml DAILY PRN PO CONSTIPATION Last administered on 11/24/18 08:45; Admin Dose 30 ML; Start 11/20/18 at 17:30 Simethicone (Mylicon) 80 mg Q8H PRN PO INDIGESTION; Start 11/20/18 at 23:30 Escitalopram Oxalate (Lexapro) 10 mg DAILY PO Last administered on 12/09/18 08:18; Admin Dose 10 MG; Start 11/24/18 at 19:00 Anastrozole (Arimidex) 1 mg DAILY PO Last administered on 12/09/18 08:20; Admin Dose 1 MG; Start 11/25/18 at 10:30 Carvedilol (Coreg) 3.125 mg BID PO Last administered on 12/09/18 21:04; Admin Dose 3.125 MG; Start 11/25/18 at 10:30 Docusate Sodium (Colace) 100 mg BID PO Last administered on 12/09/18 21:03; Admin Dose 100 MG; Start 11/25/18 at 10:30 Loratadine (Claritin) 10 mg DAILY PO Last administered on 12/09/18 08:18; Admin Dose 10 MG; Start 11/25/18 at 10:30 Pantoprazole (Protonix Tab) 40 mg AC BREAKFAST PO Last administered on 12/09/18 06:17; Admin Dose 40 MG; Start 11/25/18 at 10:30 Polyethylene Glycol (Miralax) 17 gm DAILY PO Last administered on 12/09/18 08:18; Admin Dose 17 GM; Start 11/25/18 at 10:30 Spironolactone (Aldactone) 50 mg DAILY PO Last administered on 12/09/18 08:18; Admin Dose 50 MG; Start 11/25/18 at 10:30 Diclofenac Sodium (Voltaren 1% Gel) 2 gm QID TP Last administered on 12/09/18 21:04; Admin Dose 2 GM; Start 11/27/18 at 22:00 Oxycodone HCl (Oxycontin) 20 mg BID PO Last administered on 12/09/18 21:03; Admin Dose 20 MG; Start 12/01/18 at 09:00 Budesonide (Pulmicort (Neb)) 0.5 mg BID RESP THERAPY PRN HHN WHEEZING; Start 12/01/18 at 13:00 Zolpidem Tartrate (Ambien) 10 mg HS PRN PO INSOMNIA; Start 12/02/18 at 20:00 Ergocalciferol (Drisdol) 50,000 unit Q7D PO Last administered on 12/03/18at 17:57; Admin Dose 50,000 UNIT; Start 12/03/18 at 16:00 Neomycin/ Polymyxin/ Hydrocortisone (Cortisporin Otic Susp) 4 drop TID LEFT EAR Last administered on 12/09/18at 21:03; Admin Dose 4 DROP; Start 12/08/18 at 23:00; Stop 12/13/18 at 22:59 DES DUNAWAY MD Dec 09, 2018 23:01
[2018-12-10 01:22] VITALS: BP 114/66; PULSE 95; RESP 18
[2018-12-10 05:54] VITALS: BP 109/64; PULSE 87
[2018-12-10] MEDS: METOLAZONE 2.5 MG TAB PO SCH ×2 (05:54→18:22)
[2018-12-10] MEDS: PANTOPRAZOLE (EC) 40 MG TAB PO SCH (05:54)
[2018-12-10 07:49] VITALS: BP 113/78; PULSE 92; RESP 17
[2018-12-10] MEDS: NEOMYC/POLYMYX/HC 10 ML OTIC SUSP LEFT EAR SCH ×3 (09:02→21:14)
[2018-12-10] MEDS: ANASTROZOLE 1 MG TAB PO SCH (09:04)
[2018-12-10] MEDS: POTASSIUM CHLORIDE (SR) 20 MEQ TAB PO SCH ×2 (09:06→21:15)
[2018-12-10] MEDS: ESCITALOPRAM 10 MG TAB PO SCH (09:06)
[2018-12-10] MEDS: oxyCODONE (CR) 20 MG TAB [oxyCONTIN] PO SCH ×2 (09:07→21:15)
[2018-12-10] MEDS: POLYETHYLENE GLYCOL 17 GM PACKET PO SCH (09:15)
[2018-12-10] MEDS: BUMETANIDE 0.5 MG TAB PO SCH (09:15)
[2018-12-10] MEDS: SPIRONOLACTONE 50 MG TAB PO SCH (09:16)
[2018-12-10] MEDS: LORATADINE 10 MG TAB PO SCH (09:17)
[2018-12-10] MEDS: DICLOFENAC SODIUM 1% GEL 100 GM TUBE TP SCH ×4 (09:17→21:15)
[2018-12-10] MEDS: DOCUSATE SODIUM 100 MG CAP PO SCH ×2 (09:19→21:14)
--- NOTE | 2018-12-10 13:27 | CONS ---
Consult Date/Type/Reason Admit Date/Time October 21, 2018 at 17:39 Initial Consult Date 10/21/18 Requesting Provider: RUSS JEROME MD Date/Time of Note DATE: 12/10/18 TIME: 13:24 Subjective No acute change - pt with increased SOB - likely re-accumulating effusion - CXR to follow - ambulatory with SOB now. ROS: No fever, no chills, no nausea, no vomiting, no diarrhea/constipation No recent weight changes No chest pain, no PND, no orthopnea - INCREASED SOB No dizziness, blurred vision No thirst, no heat or cold intolerance Objective Vitals Vital Signs Date Temp Pulse Resp B/P (MAP) Pulse Ox O2 O2 Flow FiO2 Time Delivery Rate 12/10/18 98.3 92 17 113/78 92 07:49 (90) 12/10/18 Room Air 01:22 Intake and Output 12/09/18 12/09/18 12/10/18 1515:00 23:00 07:00 IntakeIntake Total 300 ml BalanceBalance 300 ml Exam General: WN/WD/NAD, AOx 3 HEENT: Unicetric/atraumatic/EOMI ( follow commands) NECK: JVD elevated, no thyromegaly Lymph: no lymphadenopathy HEART: regular with no S3, II/ systolic murmur at apex LUNGS: Coarse sounds, decreased on right side ABD: soft, NT, ND, +BS : Intact Neuro: non focal SKIN: chronic changes EXT: trace edema Results/Medications Result Diagram: 12/08/1841712/08/18417 Home Meds Reported Medications Tuberculin,Purif.prot.deriv. (Tubersol) 5 Tub Unit/0.1 Ml Vial, 0.1 ML ID, VIAL INJECT QHS EVERY 10 DAYS FOR PPD SCREENING FOR 11 DAYS READ IN 48 HOURS,IF NEGATIVE 2STEP IN 7 DAYS FROM FIRST DOSE. 10/21/18 Acetaminophen* (Tylenol*) 325 Mg Tablet, 650 MG PO Q4H PRN for PAIN LEVEL 1- 10/10, TAB 10/21/18 Spironolactone* (Aldactone*) 50 Mg Tablet, 50 MG PO DAILY, #30 TAB HOLD FOR SBP<110 10/21/18 Simethicone* (Mylicon*) 80 Mg Tab, 80 MG PO Q8H, TAB 10/21/18 Olopatadine* (Patanol* Ophth) 0.1% - 5 Ml Drops, 1 DROP BOTH EYES BID, EA 10/21/18 Hydrocodone/Acetaminophen ([place] 10-325 Tablet) 1 Each Tablet, 1 EACH PO Q4H, TAB 10/21/18 Loratadine* (Loratadine*) 10 Mg Tablet, 10 MG PO DAILY for FOR 3 MONTHS, #30 TAB 10/21/18 Lidocaine (Lidocaine) 1 Each Adh..patch, 1 EACH TP DAILY 10/21/18 Ipratropium-Albuterol (Ipratropium-Albuterol) 0.5-3 Mg/3 Ml Ampul.neb, 3 ML INHALATION Q8H, #30 VIAL 10/21/18 Furosemide* (Furosemide*) 40 Mg Tablet, 40 MG PO BID, TAB HOLD FOR SBP<110 10/21/18 Na Phos,M-B/Na Phos,Di-Ba (Fleet Enema Extra) Unknown Strength Enema, 1 APPLIC RC NEEDED for CONSTIPATION, ENEMA 10/21/18 Bisacodyl (Dulcolax) 10 Mg Supp.rect, 10 MG RC NEEDED, SUPP.RECT 10/21/18 Potassium Chloride* (Potassium Chloride*) 20 Meq Tablet.er, 20 MEQ PO DAILY, TAB.SA 09/09/18 Pantoprazole* (Pantoprazole*) 40 Mg Tablet.dr, 40 MG PO AC BREAKFAST, TAB 08/22/18 Oxycodone Hcl* (Oxycontin*) 20 Mg Tab.er.12h, 20 MG PO Q12, TAB 08/22/18 Amlodipine Besylate* (Norvasc*) 5 Mg Tablet, 5 MG PO DAILY, TAB HOLD FOR SBP <110. 08/22/18 Polyethylene Glycol* (Miralax*) 17 Gm Powd.pack, 17 GM PO DAILY, #60 PACKET 08/22/18 Magnesium Hydroxide* (Milk Of Magnesia*) 400 Mg/5 Ml Oral.susp, 30 ML PO DAILY, ML 08/22/18 Escitalopram Oxalate* (Lexapro*) 10 Mg Tablet, 10 MG PO DAILY, #30 TAB 08/22/18 Docusate Sodium* (Colace*) 100 Mg Capsule, 100 MG PO BID, #60 CAP 08/22/18 Carvedilol* (Carvedilol*) 3.125 Mg Tablet, 3.125 MG PO BID, #60 TAB HOLD FOR SBP <110 OR DE <60. GIVE WITH FOOD. 08/22/18 Benazepril Hcl* (Benazepril Hcl*) 5 Mg Tablet, 5 MG PO DAILY, #60 TAB HOLD FOR SBP <110. 08/22/18 Anastrozole* (Arimidex*) 1 Mg Tablet, 1 MG PO DAILY, #30 TAB 08/22/18 Medications Current Medications Morphine Sulfate (morphine) 2 mg Q4H PRN IV SEVERE PAIN LEVEL 7-10 Last a dministered on 12/09/18 22:33; Admin Dose 2 MG; Start 10/22/18 at 01:30 Phenol (Cepastat Lozenge) 1 lozenge Q1H PRN MT sore throat Last administered on 10/31/18 18:34; Admin Dose 1 LOZENGE; Start 10/27/18 at 21:30 Metolazone (Zaroxolyn) 2.5 mg BID@0530,1730 PO Last administered on 12/10/18 05:54; Admin Dose 2.5 MG; Start 11/01/18 at 05:30 Enoxaparin Sodium (Lovenox) 40 mg DAILY SC Last administered on 11/23/18 09:02; Admin Dose 40 MG; Start 11/02/18 at 09:00; Status Hold Ibuprofen (Motrin) 400 mg Q6H PRN PO MILD PAIN(1-3) OR TEMP>38C Last administered on 12/09/18 02:07; Admin Dose 400 MG; Start 11/07/18 at 12:20 Potassium Chloride (Klor-Con 20) 20 meq BID PO Last administered on 12/10/18 09:06; Admin Dose 20 MEQ; Start 11/11/18 at 09:00 Ondansetron HCl (Zofran Inj) 4 mg Q6H PRN IV NAUSEA AND/OR VOMITING Last administered on 11/19/18 20:21; Admin Dose 4 MG; Start 11/19/18 at 20:30 Bumetanide (Bumex) 0.5 mg DAILY PO Last administered on 12/10/18 09:15; Admin Dose 0.5 MG; Start 11/20/18 at 09:00 Diphenhydramine HCl (Benadryl) 25 mg Q8H PRN PO ITCHING Last administered on 12/08/18 23:57; Admin Dose 25 MG; Start 11/20/18 at 14:00 Bisacodyl (Dulcolax Supp) 10 mg Q8H PRN [place] CONSTIPATION; Start 11/20/18 at 17:30 Guaifenesin/ Codeine Phosphate (Robitussin Ac Liquid Cup) 10 ml Q4H PRN PO COUGH; Start 11/20/18 at 17:30 Magnesium Hydroxide (Milk Of Mag) 30 ml DAILY PRN PO CONSTIPATION Last administered on 11/24/18 08:45; Admin Dose 30 ML; Start 11/20/18 at 17:30 Simethicone (Mylicon) 80 mg Q8H PRN PO INDIGESTION; Start 11/20/18 at 23:30 Escitalopram Oxalate (Lexapro) 10 mg DAILY PO Last administered on 12/10/18 09:06; Admin Dose 10 MG; Start 11/24/18 at 19:00 Anastrozole (Arimidex) 1 mg DAILY PO Last administered on 12/10/18 09:04; Admin Dose 1 MG; Start 11/25/18 at 10:30 Carvedilol (Coreg) 3.125 mg BID PO Last administered on 12/10/18 09:16; Admin Dose 3.125 MG; Start 11/25/18 at 10:30 Docusate Sodium (Colace) 100 mg BID PO Last administered on 12/10/18 09:19; Admin Dose 100 MG; Start 11/25/18 at 10:30 Loratadine (Claritin) 10 mg DAILY PO Last administered on 12/10/18 09:17; Admin Dose 10 MG; Start 11/25/18 at 10:30 Pantoprazole (Protonix Tab) 40 mg AC BREAKFAST PO Last administered on 12/10/18 05:54; Admin Dose 40 MG; Start 11/25/18 at 10:30 Polyethylene Glycol (Miralax) 17 gm DAILY PO Last administered on 12/10/18 09:15; Admin Dose 17 GM; Start 11/25/18 at 10:30 Spironolactone (Aldactone) 50 mg DAILY PO Last administered on 12/10/18 09:16; Admin Dose 50 MG; Start 11/25/18 at 10:30 Diclofenac Sodium (Voltaren 1% Gel) 2 gm QID TP Last administered on 12/10/18at 09:17; Admin Dose 2 GM; Start 11/27/18 at 22:00 Oxycodone HCl (Oxycontin) 20 mg BID PO Last administered on 12/10/18at 09:07; Admin Dose 20 MG; Start 12/01/18 at 09:00 Budesonide (Pulmicort (Neb)) 0.5 mg BID RESP THERAPY PRN HHN WHEEZING; Start 12/01/18 at 13:00 Zolpidem Tartrate (Ambien) 10 mg HS PRN PO INSOMNIA; Start 12/02/18 at 20:00 Ergocalciferol (Drisdol) 50,000 unit Q7D PO Last administered on 12/03/18at 17:57; Admin Dose 50,000 UNIT; Start 12/03/18 at 16:00 Neomycin/ Polymyxin/ Hydrocortisone (Cortisporin Otic Susp) 4 drop TID LEFT EAR Last administered on 12/10/18at 09:02; Admin Dose 4 DROP; Start 12/08/18 at 23:00; Stop 12/13/18 at 22:59 Assessment/Plan Hospital Course (Demo Recall) 1. Congestive heart failure exacerbation would be diastolic, acute on chronic by most recent echo.-now s/p echo this admit with EF 60/small effusion - better now, responding to diuresis. CHF better, but suspect effusion is re-accumulated - CXR to follow. 2. Abnormal electrocardiogram with low voltage, rule out pericardial effusion - stable, no signs of tamponade. Treated. Off tele now. NO intervention planned. Stable. 3. Hypertension-currently borderline hypotension - treated with meds. BP stable overall. Tolerated Rx well. 4. Metastatic breast carcinoma- responded to chemo per Dr. Fernández - still poor prognosis. Traeted - hair beginning to grow back. Last effusion drainage a week ago - radiology to follow again. 5. History of pathologic fractures of the leg, status post open reduction and internal fixation - pain controlled. 6. Anemia =- Rx per hem-onc team. Rx as needed. 7. Increased BNP consistent with patient's congestive heart failure. 8. Pericardial effusion-small by echo 8. Cough - con't anti-bx now. EMILY NELSON MD Dec 10, 2018 13:27
--- NOTE | 2018-12-10 13:49 | PN ---
Date/Time of Note Date/Time of Note DATE: 12/10/18 TIME: 13:46 Assessment/Plan VTE Prophylaxis Risk score (from Ns)>0 risk: 7 SCD applied (from Ns): No SCD contraindicated: patient refusal Pharmacological prophylaxis: NA/contraindicated Pharm contraindication: other Lines/Catheters IV Catheter Type (from Nrsg): [place] [employer] [place] line still needed: Yes Urinary Cath still in place: No Assessment/Plan Hospital Course No acute events overnight, patient is awake alert, pain is adequately controlled with current regimen. Will check BMP tomorrow. [facility]ending [facility]. Assessment/Plan -Metastatic left breast cancer with pulmonary, liver, and bone involvement. S/p chemo which is on hold now. Continued on Arimidex. Dr. Fernández is following in oncology consultation. -Recurrent pleural effusions requiring bilateral thoracentesis -Diastolic congestive heart failure, patient is currently on Aldactone, Bumex, and Coreg. Dr. Hurtado is following in cardiology consultation. -Acute on chronic pain, continue OxyContin twice daily and morphine as needed -Status post R hip arthroplasty due to lytic fracture -Status post recent fall with left wrist fracture that is being treated conservatively -Left lower extremity lymphedema -Obesity Further recommendations based on clinical course. Plan of care discussed with Dr. Peñaloza. Result Diagram: 12/08/1841712/08/18417 Exam/Review of Systems Exam Vitals Vital Signs Date Temp Pulse Resp B/P (MAP) Pulse Ox O2 O2 Flow FiO2 Time Delivery Rate 12/10/18 98.3 92 17 113/78 92 07:49 (90) 12/10/18 Room Air 01:22 Intake and Output 12/09/18 12/09/18 12/10/18 1515:00 23:00 07:00 IntakeIntake Total 300 ml BalanceBalance 300 ml Exam Constitutional: alert, oriented Respiratory: clear to auscultation Cardiovascular: nl pulses Gastrointestinal: soft, non-tender Extremities: edema Neurological: nl mental status Skin: nl turgor Additional Comments Right chest Port-A-Cath Medications Medication Current Medications Morphine Sulfate (morphine) 2 mg Q4H PRN IV SEVERE PAIN LEVEL 7-10 Last administered on 12/09/18at 22:33; Admin Dose 2 MG; Start 10/22/18 at 01:30 Phenol (Cepastat Lozenge) 1 lozenge Q1H PRN MT sore throat Last administered on 10/31/18 18:34; Admin Dose 1 LOZENGE; Start 10/27/18 at 21:30 Metolazone (Zaroxolyn) 2.5 mg BID@0530,1730 PO Last administered on 12/10/18 05:54; Admin Dose 2.5 MG; Start 11/01/18 at 05:30 Enoxaparin Sodium (Lovenox) 40 mg DAILY SC Last administered on 11/23/18 09:02; Admin Dose 40 MG; Start 11/02/18 at 09:00; Status Hold Ibuprofen (Motrin) 400 mg Q6H PRN PO MILD PAIN(1-3) OR TEMP>38C Last administered on 12/09/18 02:07; Admin Dose 400 MG; Start 11/07/18 at 12:20 Potassium Chloride (Klor-Con 20) 20 meq BID PO Last administered on 12/10/18 09:06; Admin Dose 20 MEQ; Start 11/11/18 at 09:00 Ondansetron HCl (Zofran Inj) 4 mg Q6H PRN IV NAUSEA AND/OR VOMITING Last administered on 11/19/18 20:21; Admin Dose 4 MG; Start 11/19/18 at 20:30 Bumetanide (Bumex) 0.5 mg DAILY PO Last administered on 12/10/18 09:15; Admin Dose 0.5 MG; Start 11/20/18 at 09:00 Diphenhydramine HCl (Benadryl) 25 mg Q8H PRN PO ITCHING Last administered on 12/08/18 23:57; Admin Dose 25 MG; Start 11/20/18 at 14:00 Bisacodyl (Dulcolax Supp) 10 mg Q8H PRN [place] CONSTIPATION; Start 11/20/18 at 17:30 Guaifenesin/ Codeine Phosphate (Robitussin Ac Liquid Cup) 10 ml Q4H PRN PO COUGH; Start 11/20/18 at 17:30 Magnesium Hydroxide (Milk Of Mag) 30 ml DAILY PRN PO CONSTIPATION Last administered on 11/24/18 08:45; Admin Dose 30 ML; Start 11/20/18 at 17:30 Simethicone (Mylicon) 80 mg Q8H PRN PO INDIGESTION; Start 11/20/18 at 23:30 Escitalopram Oxalate (Lexapro) 10 mg DAILY PO Last administered on 12/10/18 09:06; Admin Dose 10 MG; Start 11/24/18 at 19:00 Anastrozole (Arimidex) 1 mg DAILY PO Last administered on 12/10/18 09:04; Admin Dose 1 MG; Start 11/25/18 at 10:30 Carvedilol (Coreg) 3.125 mg BID PO Last administered on 12/10/18 09:16; Admin Dose 3.125 MG; Start 11/25/18 at 10:30 Docusate Sodium (Colace) 100 mg BID PO Last administered on 12/10/18 09:19; Admin Dose 100 MG; Start 11/25/18 at 10:30 Loratadine (Claritin) 10 mg DAILY PO Last administered on 12/10/18 09:17; Admin Dose 10 MG; Start 11/25/18 at 10:30 Pantoprazole (Protonix Tab) 40 mg AC BREAKFAST PO Last administered on 12/10/18 05:54; Admin Dose 40 MG; Start 11/25/18 at 10:30 Polyethylene Glycol (Miralax) 17 gm DAILY PO Last administered on 12/10/18 09:15; Admin Dose 17 GM; Start 11/25/18 at 10:30 Spironolactone (Aldactone) 50 mg DAILY PO Last administered on 12/10/18 09:16; Admin Dose 50 MG; Start 11/25/18 at 10:30 Diclofenac Sodium (Voltaren 1% Gel) 2 gm QID TP Last administered on 12/10/18 13:40; Admin Dose 2 GM; Start 11/27/18 at 22:00 Oxycodone HCl (Oxycontin) 20 mg BID PO Last administered on 12/10/18 09:07; A dmin Dose 20 MG; Start 12/01/18 at 09:00 Budesonide (Pulmicort (Neb)) 0.5 mg BID RESP THERAPY PRN HHN WHEEZING; Start 12/01/18 at 13:00 Zolpidem Tartrate (Ambien) 10 mg HS PRN PO INSOMNIA; Start 12/02/18 at 20:00 Ergocalciferol (Drisdol) 50,000 unit Q7D PO Last administered on 12/03/18at 17:57; Admin Dose 50,000 UNIT; Start 12/03/18 at 16:00 Neomycin/ Polymyxin/ Hydrocortisone (Cortisporin Otic Susp) 4 drop TID LEFT EAR Last administered on 12/10/18at 13:39; Admin Dose 4 DROP; Start 12/08/18 at 23:00; Stop 12/13/18 at 22:59 YEISON SOLIZ Dec 10, 2018 13:49
[2018-12-10 14:57] VITALS: BP 91/69; PULSE 84; RESP 16
[2018-12-10 15:30] VITALS: BP 102/68; PULSE 89
[2018-12-10] MEDS: ERGOCALCIFEROL 50,000 UNIT CAP PO SCH (16:21)
[2018-12-10 19:40] VITALS: BP 105/64; PULSE 88; RESP 18
--- NOTE | 2018-12-10 23:32 | CONS ---
Assessment/Plan Assessment/Plan Hospital Course (Demo Recall) METASTATIC BREAST CANCER WITH PRIMARY ADENOCARCINOMA IN the left breast. MULTIPLE BONY METS, PULMONARY METS, LIVER METS CHEMO ON HOLD PT HAS A VERY GOOD RESPONSE TO CHEMO AND AI CONT AI FOR NOW CT ABD FOR RESTAGING 08.27.18, 12.04.18 - noted , stable POST aredia Leukopenia- post chemo, FLUCTUATING post NEUPOGEN monitor closely post Neutropenia with occasional fever and chills. - resolved Anemia chronic disease SOB PLEURAL EFFUSIONS, NEG CYTOLOGY POST thoracentesis Fluid overload diuretic cardiology F-UP Severe pain in the interscapular and lumbar sacral area most probably metastatic lesion possible femoral fracture. pathologic fracture of T9 with 60% of loss of height. Bony pain with multiple bony mets post XRT d/w dr Ocampo HYPOKALEMIA- REPLACED Obesity. Weight loss 60 pounds during the last 2 years COUGH, Upper respiratory infection pharyngitis with dry cough. POST ATB PMS. Myopia. Anxiety disorder. Claustrophobia. Posttraumatic stress disorder. Pain in the left forearm with a history of fracture of ulna and radius. Tachycardia Hypoxemia at night marginal improved after 2 L of nasal cannula oxygen. Deconditioning Pain syndrome. Today the most painful zone is in the right hip area. X-ray did not show any fractures. Hyponatremia- resolved Hypoalbuminemia Right sided cp after catheter insertion and correction less discomfort. Decreased edema both lower extremities with hypotension-improving Swelling of the left forearm-persist. Consultation Date/Type/Reason Admit Date/Time October 21, 2018 at 17:39 Initial Consult Date 10/21/18 Type of Consult [facility] Requesting Provider: RUSS JEROME MD Date/Time of Note DATE: 12/10/18 TIME: 23:31 24 HR Interval Summary Free Text/Dictation NAD IN BED Exam/Review of Systems Exam Vitals Vital Signs Date Temp Pulse Resp B/P (MAP) Pulse Ox O2 O2 Flow FiO2 Time Delivery Rate 12/10/18 98.2 88 18 105/64 97 Room Air 19:40 (78) Intake and Output 12/09/18 12/09/18 12/10/18 1515:00 23:00 07:00 IntakeIntake Total 300 ml BalanceBalance 300 ml Exam Constitutional: alert, oriented, well developed, distress, frail; No non-verbal, No obese, No other Psych: nl mood/affect, anxiety, depression; No no complaints, No confusion, No suicidal, No other Head: normocephalic, atraumatic; No lacerations, No hematomas, No other Eyes: EOMI, nl lids, PERRL; No nl conjunctiva, No nl sclera, No icteric, No fundi, disc, No other ENMT: nl lips & teeth, tympanic membranes; No nl external ears & nose, No nl nasal mucosa & septum, No mucosa pink and moist, No intubated, No other Neck: jvd, bruits; No supple, No non-tender, No masses, No thyromegaly, No nuchal rigidity, No other Respiratory: clear to auscultation (Upper parts with pleural friction rub lower parts.), congested cough, diminished breath sounds; No normal air movement, No crackles/rales, No intercostal retraction, No labored breathing, No respirations, No tactile fremitus, No wheezing, No other Cardiovascular: regular rate and rhythm, edema, systolic murmur; No nl pulses, No bruits, No diastolic murmur, No gallop, No irregular rhythm, No jugular venous distention (JVD), No murmurs/extra sounds, No rub, No S3, No S4, No other Gastrointestinal: soft, nl liver, spleen, bowel sounds; No non-tender, No ascites, No distended, No firm, No hepatomegaly, No mass, No rebound or guarding, No splenomegaly, No surgical scars, No tender, No other Musculoskeletal: joint tenderness, muscle tone, muscle weakness; No nl extremities to inspection, No nl gait and stance, No range of motion, No spine non-tender, No swelling, No other Extremities: No normal pulses, No calf tenderness, No cyanosis, No clubbing, No edema, No pitting pedal edema, No palpable cord, No tenderness, No other Neurological: CLAIMS SERVICE REPRESENTATIVE 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; No nl mental status, No nl speech, No nl strength, No confused, No DTR's symmetric, No focal weakness, No lethargic, No numbness, No reflexes, No unresponsive, No other Skin: No nl turgor, No rash or lesions, No diaphoresis, No ecchymosis, No laceration, No puncture, No other Lymph: No nl lymph nodes, No enlarged, No nontender, No other Results Result Diagram: 12/08/18 0418 12/08/188 Medications Medication Current Medications Morphine Sulfate (morphine) 2 mg Q4H PRN IV SEVERE PAIN LEVEL 7-10 Last administered on 12/09/18 22:33; Admin Dose 2 MG; Start 10/22/18 at 01:30 Phenol (Cepastat Lozenge) 1 lozenge Q1H PRN MT sore throat Last administered on 10/31/18 18:34; Admin Dose 1 LOZENGE; Start 10/27/18 at 21:30 Metolazone (Zaroxolyn) 2.5 mg BID@0530,1730 PO Last administered on 12/10/18 18:22; Admin Dose 2.5 MG; Start 11/01/18 at 05:30 Enoxaparin Sodium (Lovenox) 40 mg DAILY SC Last administered on 11/23/18 09:02; Admin Dose 40 MG; Start 11/02/18 at 09:00; Status Hold Ibuprofen (Motrin) 400 mg Q6H PRN PO MILD PAIN(1-3) OR TEMP>38C Last administered on 12/09/18 02:07; Admin Dose 400 MG; Start 11/07/18 at 12:20 Potassium Chloride (Klor-Con 20) 20 meq BID PO Last administered on 12/10/18 21:15; Admin Dose 20 MEQ; Start 11/11/18 at 09:00 Ondansetron HCl (Zofran Inj) 4 mg Q6H PRN IV NAUSEA AND/OR VOMITING Last administered on 11/19/18 20:21; Admin Dose 4 MG; Start 11/19/18 at 20:30 Bumetanide (Bumex) 0.5 mg DAILY PO Last administered on 12/10/18 09:15; Admin Dose 0.5 MG; Start 11/20/18 at 09:00 Diphenhydramine HCl (Benadryl) 25 mg Q8H PRN PO ITCHING Last administered on 12/08/18 23:57; Admin Dose 25 MG; Start 11/20/18 at 14:00 Bisacodyl (Dulcolax Supp) 10 mg Q8H PRN [place] CONSTIPATION; Start 11/20/18 at 17:30 Guaifenesin/ Codeine Phosphate (Robitussin Ac Liquid Cup) 10 ml Q4H PRN PO COUGH; Start 11/20/18 at 17:30 Magnesium Hydroxide (Milk Of Mag) 30 ml DAILY PRN PO CONSTIPATION Last administered on 11/24/18 08:45; Admin Dose 30 ML; Start 11/20/18 at 17:30 Simethicone (Mylicon) 80 mg Q8H PRN PO INDIGESTION; Start 11/20/18 at 23:30 Escitalopram Oxalate (Lexapro) 10 mg DAILY PO Last administered on 12/10/18 09:06; Admin Dose 10 MG; Start 11/24/18 at 19:00 Anastrozole (Arimidex) 1 mg DAILY PO Last administered on 12/10/18 09:04; Admin Dose 1 MG; Start 11/25/18 at 10:30 Carvedilol (Coreg) 3.125 mg BID PO Last administered on 12/10/18 21:15; Admin Dose 3.125 MG; Start 11/25/18 at 10:30 Docusate Sodium (Colace) 100 mg BID PO Last administered on 12/10/18 21:14; Admin Dose 100 MG; Start 11/25/18 at 10:30 Loratadine (Claritin) 10 mg DAILY PO Last administered on 12/10/18 09:17; Admin Dose 10 MG; Start 11/25/18 at 10:30 Pantoprazole (Protonix Tab) 40 mg AC BREAKFAST PO Last administered on 12/10/18 05:54; Admin Dose 40 MG; Start 11/25/18 at 10:30 Polyethylene Glycol (Miralax) 17 gm DAILY PO Last administered on 12/10/18 09:15; Admin Dose 17 GM; Start 11/25/18 at 10:30 Spironolactone (Aldactone) 50 mg DAILY PO Last administered on 12/10/18 09:16; Admin Dose 50 MG; Start 11/25/18 at 10:30 Diclofenac Sodium (Voltaren 1% Gel) 2 gm QID TP Last administered on 12/10/18 21:15; Admin Dose 2 GM; Start 11/27/18 at 22:00 Oxycodone HCl (Oxycontin) 20 mg BID PO Last administered on 12/10/18 21:15; Admin Dose 20 MG; Start 12/01/18 at 09:00 Budesonide (Pulmicort (Neb)) 0.5 mg BID RESP THERAPY PRN HHN WHEEZING; Start 12/01/18 at 13:00 Zolpidem Tartrate (Ambien) 10 mg HS PRN PO INSOMNIA; Start 12/02/18 at 20:00 Ergocalciferol (Drisdol) 50,000 unit Q7D PO Last administered on 12/10/18at 16:21; Admin Dose 50,000 UNIT; Start 12/03/18 at 16:00 Neomycin/ Polymyxin/ Hydrocortisone (Cortisporin Otic Susp) 4 drop TID LEFT EAR Last administered on 12/10/18at 21:14; Admin Dose 4 DROP; Start 12/08/18 at 23:00; Stop 12/13/18 at 22:59 DES DUNAWAY MD Dec 10, 2018 23:32
[2018-12-11] MEDS: PANTOPRAZOLE (EC) 40 MG TAB PO SCH (05:36)
[2018-12-11] MEDS: METOLAZONE 2.5 MG TAB PO SCH ×2 (05:36→17:47)
[2018-12-11 07:54] VITALS: BP 119/59; PULSE 76; RESP 15
[2018-12-11] MEDS: NEOMYC/POLYMYX/HC 10 ML OTIC SUSP LEFT EAR SCH ×3 (08:56→20:45)
[2018-12-11] MEDS: DICLOFENAC SODIUM 1% GEL 100 GM TUBE TP SCH ×4 (08:56→20:45)
[2018-12-11] MEDS: DOCUSATE SODIUM 100 MG CAP PO SCH ×2 (08:57→20:45)
[2018-12-11] MEDS: ESCITALOPRAM 10 MG TAB PO SCH (08:57)
[2018-12-11] MEDS: BUMETANIDE 0.5 MG TAB PO SCH (08:57)
[2018-12-11] MEDS: SPIRONOLACTONE 50 MG TAB PO SCH (08:57)
[2018-12-11] MEDS: POTASSIUM CHLORIDE (SR) 20 MEQ TAB PO SCH ×2 (08:57→20:45)
[2018-12-11] MEDS: LORATADINE 10 MG TAB PO SCH (08:57)
[2018-12-11] MEDS: POLYETHYLENE GLYCOL 17 GM PACKET PO SCH (08:58)
[2018-12-11] MEDS: oxyCODONE (CR) 20 MG TAB [oxyCONTIN] PO SCH ×2 (09:01→20:44)
[2018-12-11] MEDS: ANASTROZOLE 1 MG TAB PO SCH (09:01)
[2018-12-11 14:11] VITALS: BP 107/65; PULSE 92; RESP 16
--- NOTE | 2018-12-11 15:03 | CONS ---
Assessment/Plan Assessment/Plan Hospital Course (Demo Recall) IMPRESSION: 1. Congestive heart failure exacerbation would be diastolic, acute on chronic by most recent echo.-now s/p echo this admit with EF 60/small effusion 2. Abnormal electrocardiogram with low voltage, rule out pericardial effusion. 3. Hypertension-currently borderline hypotension 4. Metastatic breast carcinoma. 5. History of pathologic fractures of the leg, status post open reduction and internal fixation. 6. Anemia. 7. Increased BNP consistent with patient's congestive heart failure. 8. Pericardial effusion-small by echo 9. Edema-LE venous RAMÍREZ neg for DVT 10. Hypokalemia 11.Wrist fracture acute by films 11/20-conservative management at this time 12. Pleural effusion s/p thoracentesis today Recc: -On med-surg -Continued on metolazone BID with low dose PO bumex and aldactone with overall reasonable volume status and resolution of much of LLE edema -renal and onc following and now endocrine for bone density -continue low dose coreg as tolerated only -currently conservative management of wrist fracture Consultation Date/Type/Reason Admit Date/Time October 21, 2018 at 17:39 Initial Consult Date 10/21/18 Type of Consult Cardiology Reason for Consultation CHF Requesting Provider: RUSS JEROME MD Date/Time of Note DATE: 12/11/18 TIME: 15:01 Exam/Review of Systems Vital Signs Vitals Vital Signs Date Temp Pulse Resp B/P (MAP) Pulse Ox O2 O2 Flow FiO2 Time Delivery Rate 12/11/18 98.1 92 16 107/65 100 Room Air 14:11 (79) Intake and Output 12/10/18 12/10/18 12/11/18 1515:00 23:00 07:00 IntakeIntake Total 400 ml 640 ml 150 ml OutputOutput Total 150 ml 300 ml BalanceBalance 400 ml 490 ml -150 ml Exam Exam Review of Systems: CONSTITUTIONAL: No fevers, chills. PULMONARY: No sob CARDIOVASCULAR: No chest pain/palpitations GASTROINTESTINAL: No nausea/vomiting. GENITOURINARY: No hematuria/dysuria. MUSCULOSKELETAL: No myagias/arthalgias. PSYCHIATRIC: The patient denies depression. NEUROLOGIC: No weakness Constitutional: alert, oriented Psych: no complaints Head: normocephalic ENMT: mucosa pink and moist Neck: supple, jvd (9 cm water) Respiratory: clear to auscultation Cardiovascular: regular rate and rhythm Gastrointestinal: soft, non-tender Musculoskeletal: muscle weakness (mild generalized) Extremities: edema (TRace R>L and LUE) Labs Result Diagram: 12/08/18 0418 12/11/18 0423 Results 24hrs Laboratory Tests Test 12/11/18 04:23 Sodium Level 139 Potassium Level 3.7 Chloride Level 101 Carbon Dioxide Level 31 Anion Gap 7 Blood Urea Nitrogen 26 H Creatinine 0.70 Est Glomerular Filtrat Rate mL/min > 60 Glucose Level 98 Calcium Level 7.8 L Medications Medications Current Medications Morphine Sulfate (morphine) 2 mg Q4H PRN IV SEVERE PAIN LEVEL 7-10 Last administered on 12/09/18 22:33; Admin Dose 2 MG; Start 10/22/18 at 01:30 Phenol (Cepastat Lozenge) 1 lozenge Q1H PRN [place] sore throat Last administered on 10/31/18 18:34; Admin Dose 1 LOZENGE; Start 10/27/18 at 21:30 Metolazone (Zaroxolyn) 2.5 mg BID@0530,1730 PO Last administered on 12/11/18 05:36; Admin Dose 2.5 MG; Start 11/01/18 at 05:30 Enoxaparin Sodium (Lovenox) 40 mg DAILY SC Last administered on 11/23/18 09:02; Admin Dose 40 MG; Start 11/02/18 at 09:00; Status Hold Ibuprofen (Motrin) 400 mg Q6H PRN PO MILD PAIN(1-3) OR TEMP>38C Last administered on 12/09/18 02:07; Admin Dose 400 MG; Start 11/07/18 at 12:20 Potassium Chloride (Klor-Con 20) 20 meq BID PO Last administered on 12/11/18 08:57; Admin Dose 20 MEQ; Start 11/11/18 at 09:00 Ondansetron HCl (Zofran Inj) 4 mg Q6H PRN IV NAUSEA AND/OR VOMITING Last administered on 11/19/18 20:21; Admin Dose 4 MG; Start 11/19/18 at 20:30 Bumetanide (Bumex) 0.5 mg DAILY PO Last administered on 12/11/18 08:57; Admin Dose 0.5 MG; Start 11/20/18 at 09:00 Diphenhydramine HCl (Benadryl) 25 mg Q8H PRN PO ITCHING Last administered on 12/08/18 23:57; Admin Dose 25 MG; Start 11/20/18 at 14:00 Bisacodyl (Dulcolax Supp) 10 mg Q8H PRN [place] CONSTIPATION; Start 11/20/18 at 17:30 Guaifenesin/ Codeine Phosphate (Robitussin Ac Liquid Cup) 10 ml Q4H PRN PO COUGH; Start 11/20/18 at 17:30 Magnesium Hydroxide (Milk Of Mag) 30 ml DAILY PRN PO CONSTIPATION Last administered on 11/24/18 08:45; Admin Dose 30 ML; Start 11/20/18 at 17:30 Simethicone (Mylicon) 80 mg Q8H PRN PO INDIGESTION; Start 11/20/18 at 23:30 Escitalopram Oxalate (Lexapro) 10 mg DAILY PO Last administered on 12/11/18 08:57; Admin Dose 10 MG; Start 11/24/18 at 19:00 Anastrozole (Arimidex) 1 mg DAILY PO Last administered on 12/11/18 09:01; Admin Dose 1 MG; Start 11/25/18 at 10:30 Carvedilol (Coreg) 3.125 mg BID PO Last administered on 12/11/18 08:58; Admin Dose 3.125 MG; Start 11/25/18 at 10:30 Docusate Sodium (Colace) 100 mg BID PO Last administered on 12/11/18 08:57; Admin Dose 100 MG; Start 11/25/18 at 10:30 Loratadine (Claritin) 10 mg DAILY PO Last administered on 12/11/18 08:57; Admin Dose 10 MG; Start 11/25/18 at 10:30 Pantoprazole (Protonix Tab) 40 mg AC BREAKFAST PO Last administered on 12/11 05:36; Admin Dose 40 MG; Start 11/25/18 at 10:30 Polyethylene Glycol (Miralax) 17 gm DAILY PO Last administered on 12/11/18 08:58; Admin Dose 17 GM; Start 11/25/18 at 10:30 Spironolactone (Aldactone) 50 mg DAILY PO Last administered on 12/11/18 08:57; Admin Dose 50 MG; Start 11/25/18 at 10:30 Diclofenac Sodium (Voltaren 1% Gel) 2 gm QID TP Last administered on 12/11/18 13:50; Admin Dose 2 GM; Start 11/27/18 at 22:00 Oxycodone HCl (Oxycontin) 20 mg BID PO Last administered on 12/11/18 09:01; Admin Dose 20 MG; Start 12/01/18 at 09:00 Budesonide (Pulmicort (Neb)) 0.5 mg BID RESP THERAPY PRN HHN WHEEZING; Start 12/01/18 at 13:00 Zolpidem Tartrate (Ambien) 10 mg HS PRN PO INSOMNIA; Start 12/02/18 at 20:00 Ergocalciferol (Drisdol) 50,000 unit Q7D PO Last administered on 12/10/18at 16:21; Admin Dose 50,000 UNIT; Start 12/03/18 at 16:00 Neomycin/ Polymyxin/ Hydrocortisone (Cortisporin Otic Susp) 4 drop TID LEFT EAR Last administered on 12/11/18 13:50; Admin Dose 4 DROP; Start 12/08/18 at 23:00; Stop 12/13/18 at 22:59 KAMILA TERESA Dec 11, 2018 15:03
--- NOTE | 2018-12-11 18:23 | PN ---
Date/Time of Note Date/Time of Note DATE: 12/11/18 TIME: 18:22 Assessment/Plan VTE Prophylaxis Risk score (from Ns)>0 risk: 8 SCD applied (from Ns): Yes Pharmacological prophylaxis: LMWH Lines/Catheters IV [facility]from [facility] PORT A CATH Urinary Cath still in place: No Assessment/Plan Hospital Course Patient remains hemodynamically stable, denies any shortness of breath, pain is adequately controlled, BMP noted, pending placement to assisted facility. Assessment/Plan -Metastatic left breast cancer with pulmonary, liver, and bone involvement. S/p chemo which is on hold now. Continued on Arimidex. Dr. Fernández is following in oncology consultation. -Recurrent pleural effusions requiring bilateral thoracentesis -Diastolic congestive heart failure, patient is currently on Aldactone, Bumex, and Coreg. Dr. Hurtado is following in cardiology consultation. -Acute on chronic pain, continue OxyContin twice daily and morphine as needed -Status post R hip arthroplasty due to lytic fracture -Status post recent fall with left wrist fracture that is being treated conservatively -Left lower extremity lymphedema -Obesity Further recommendations based on clinical course. Plan of care discussed with Dr. Peñaloza. Result Diagram: 12/08/18 0418 12/11/18 0423 Results 24hrs Laboratory Tests Test 12/11/18 04:23 Sodium Level 139 Potassium Level 3.7 Chloride Level 101 Carbon Dioxide Level 31 Anion Gap 7 Blood Urea Nitrogen 26 H Creatinine 0.70 Est Glomerular Filtrat Rate mL/min > 60 Glucose Level 98 Calcium Level 7.8 L Exam/Review of Systems Exam Vitals Vital Signs Date Temp Pulse Resp B/P (MAP) Pulse Ox O2 O2 Flow FiO2 Time Delivery Rate 12/11/18 98.1 92 16 107/65 100 Room Air 14:11 (79) Intake and Output 12/10/18 12/10/18 12/11/18 1515:00 23:00 07:00 IntakeIntake Total 400 ml 640 ml 150 ml OutputOutput Total 150 ml 300 ml BalanceBalance 400 ml 490 ml -150 ml Exam Constitutional: alert, oriented Respiratory: clear to auscultation Cardiovascular: nl pulses Gastrointestinal: soft, non-tender Extremities: edema Neurological: nl mental status Skin: nl turgor Additional Comments Right chest Port-A-Cath Results Results 24hrs Laboratory Tests Test 12/11/18 04:23 Sodium Level 139 Potassium Level 3.7 Chloride Level 101 Carbon Dioxide Level 31 Anion Gap 7 Blood Urea Nitrogen 26 H Creatinine 0.70 Est Glomerular Filtrat Rate mL/min > 60 Glucose Level 98 Calcium Level 7.8 L Medications Medication Current Medications Morphine Sulfate (morphine) 2 mg Q4H PRN IV SEVERE PAIN LEVEL 7-10 Last administered on 12/09/18 22:33; Admin Dose 2 MG; Start 10/22/18 at 01:30 Phenol (Cepastat Lozenge) 1 lozenge Q1H PRN [place] sore throat Last administered on 10/31/18 18:34; Admin Dose 1 LOZENGE; Start 10/27/18 at 21:30 Metolazone (Zaroxolyn) 2.5 mg BID@0530,1730 PO Last administered on 12/11/18 17:47; Admin Dose 2.5 MG; Start 11/01/18 at 05:30 Enoxaparin Sodium (Lovenox) 40 mg DAILY SC Last administered on 11/23/18 09:02; Admin Dose 40 MG; Start 11/02/18 at 09:00; Status Hold Ibuprofen (Motrin) 400 mg Q6H PRN PO MILD PAIN(1-3) OR TEMP>38C Last administered on 12/09/18 02:07; Admin Dose 400 MG; Start 11/07/18 at 12:20 Potassium Chloride (Klor-Con 20) 20 meq BID PO Last administered on 12/11/18 08:57; Admin Dose 20 MEQ; Start 11/11/18 at 09:00 Ondansetron HCl (Zofran Inj) 4 mg Q6H PRN IV NAUSEA AND/OR VOMITING Last administered on 11/19/18 20:21; Admin Dose 4 MG; Start 11/19/18 at 20:30 Bumetanide (Bumex) 0.5 mg DAILY PO Last administered on 12/11/18 08:57; Admin Dose 0.5 MG; Start 11/20/18 at 09:00 Diphenhydramine HCl (Benadryl) 25 mg Q8H PRN PO ITCHING Last administered on 23:57; Admin Dose 25 MG; Start 11/20/18 at 14:00 Bisacodyl (Dulcolax Supp) 10 mg Q8H PRN [place] CONSTIPATION; Start 11/20/18 at 17:30 Guaifenesin/ Codeine Phosphate (Robitussin Ac Liquid Cup) 10 ml Q4H PRN PO COUGH; Start 11/20/18 at 17:30 Magnesium Hydroxide (Milk Of Mag) 30 ml DAILY PRN PO CONSTIPATION Last administered on 11/24/18at 08:45; Admin Dose 30 ML; Start 11/20/18 at 17:30 Simethicone (Mylicon) 80 mg Q8H PRN PO INDIGESTION; Start 11/20/18 at 23:30 Escitalopram Oxalate (Lexapro) 10 mg DAILY PO Last administered on 12/11/18 08:57; Admin Dose 10 MG; Start 11/24/18 at 19:00 Anastrozole (Arimidex) 1 mg DAILY PO Last administered on 12/11/18 09:01; Admin Dose 1 MG; Start 11/25/18 at 10:30 Carvedilol (Coreg) 3.125 mg BID PO Last administered on 12/11/18 08:58; Admin Dose 3.125 MG; Start 11/25/18 at 10:30 Docusate Sodium (Colace) 100 mg BID PO Last administered on 12/11/18 08:57; Admin Dose 100 MG; Start 11/25/18 at 10:30 Loratadine (Claritin) 10 mg DAILY PO Last administered on 12/11/18 08:57; Admin Dose 10 MG; Start 11/25/18 at 10:30 Pantoprazole (Protonix Tab) 40 mg AC BREAKFAST PO Last administered on 12/11/18 05:36; Admin Dose 40 MG; Start 11/25/18 at 10:30 Polyethylene Glycol (Miralax) 17 gm DAILY PO Last administered on 12/11/18 08:58; Admin Dose 17 GM; Start 11/25/18 at 10:30 Spironolactone (Aldactone) 50 mg DAILY PO Last administered on 12/11/18 08:57; Admin Dose 50 MG; Start 11/25/18 at 10:30 Diclofenac Sodium (Voltaren 1% Gel) 2 gm QID TP Last administered on 12/11/18 17:47; Admin Dose 2 GM; Start 6/12/19 at 22:00 Oxycodone HCl (Oxycontin) 20 mg BID PO Last administered on 12/11/18at 09:01; Admin Dose 20 MG; Start 12/01/18 at 09:00 Budesonide (Pulmicort (Neb)) 0.5 mg BID RESP THERAPY PRN HHN WHEEZING; Start 12/01/18 at 13:00 Zolpidem Tartrate (Ambien) 10 mg HS PRN PO INSOMNIA; Start 12/02/18 at 20:00 Ergocalciferol (Drisdol) 50,000 unit Q7D PO Last administered on 12/10/18at 16:21; Admin Dose 50,000 UNIT; Start 12/03/18 at 16:00 Neomycin/ Polymyxin/ Hydrocortisone (Cortisporin Otic Susp) 4 drop TID LEFT EAR Last administered on 12/11/18at 13:50; Admin Dose 4 DROP; Start 12/08/18 at 23:00; Stop 12/13/18 at 22:59 YEISON SOLIZ Dec 11, 2018 18:23
[2018-12-11 20:19] VITALS: BP 104/64; PULSE 82; RESP 18
[2018-12-11] MEDS: DIPHENHYDRAMINE 25 MG CAP PO PRN (21:42)
--- NOTE | 2018-12-11 23:29 | CONS ---
Assessment/Plan Assessment/Plan Hospital Course (Demo Recall) METASTATIC BREAST CANCER WITH PRIMARY ADENOCARCINOMA IN the left breast. MULTIPLE BONY METS, PULMONARY METS, LIVER METS CHEMO ON HOLD PT HAS A VERY GOOD RESPONSE TO CHEMO AND AI CONT AI FOR NOW CT ABD FOR RESTAGING 08.27.18, 12.04.18 - noted , stable POST aredia Leukopenia- post chemo, FLUCTUATING post NEUPOGEN monitor closely post Neutropenia with occasional fever and chills. - resolved Anemia chronic disease SOB PLEURAL EFFUSIONS, NEG CYTOLOGY POST thoracentesis Fluid overload diuretic cardiology F-UP Severe pain in the interscapular and lumbar sacral area most probably metastatic lesion possible femoral fracture. pathologic fracture of T9 with 60% of loss of height. Bony pain with multiple bony mets post XRT d/w dr Ocampo HYPOKALEMIA- REPLACED Obesity. Weight loss 60 pounds during the last 2 years COUGH, Upper respiratory infection pharyngitis with dry cough. POST ATB PMS. Myopia. Anxiety disorder. Claustrophobia. Posttraumatic stress disorder. Pain in the left forearm with a history of fracture of ulna and radius. Tachycardia Hypoxemia at night marginal improved after 2 L of nasal cannula oxygen. Deconditioning Pain syndrome. Today the most painful zone is in the right hip area. X-ray did not show any fractures. Hyponatremia- resolved Hypoalbuminemia Right sided cp after catheter insertion and correction less discomfort. Decreased edema both lower extremities with hypotension-improving Swelling of the left forearm-persist. Consultation Date/Type/Reason Admit Date/Time October 21, 2018 at 17:39 Initial Consult Date 10/21/18 Type of Consult [facility] Requesting Provider: RUSS JEROME MD Date/Time of Note DATE: 12/11/18 TIME: 23:29 Exam/Review of Systems Exam Vitals Vital Signs Date Temp Pulse Resp B/P (MAP) Pulse Ox O2 O2 Flow FiO2 Time Delivery Rate 12/11/18 98.2 82 18 104/64 92 20:19 (77) 12/11/18 Room Air 14:11 Intake and Output 12/10/18 12/10/18 12/11/18 1515:00 23:00 07:00 IntakeIntake Total 400 ml 640 ml 150 ml OutputOutput Total 150 ml 300 ml BalanceBalance 400 ml 490 ml -150 ml Exam Constitutional: alert, oriented, well developed, distress, frail; No non-verbal, No obese, No other Psych: nl mood/affect, anxiety, depression; No no complaints, No confusion, No suicidal, No other Head: normocephalic, atraumatic; No lacerations, No hematomas, No other Eyes: EOMI, nl lids, PERRL; No nl conjunctiva, No nl sclera, No icteric, No fundi, disc, No other ENMT: nl lips & teeth, tympanic membranes; No nl external ears & nose, No nl nasal mucosa & septum, No mucosa pink and moist, No intubated, No other Neck: jvd, bruits; No supple, No non-tender, No masses, No thyromegaly, No nuchal rigidity, No other Respiratory: clear to auscultation (Upper parts with pleural friction rub lower parts.), congested cough, diminished breath sounds; No normal air movement, No crackles/rales, No intercostal retraction, No labored breathing, No respirations, No tactile fremitus, No wheezing, No other Cardiovascular: regular rate and rhythm, edema, systolic murmur; No nl pulses, No bruits, No diastolic murmur, No gallop, No irregular rhythm, No jugular venous distention (JVD), No murmurs/extra sounds, No rub, No S3, No S4, No other Gastrointestinal: soft, nl liver, spleen, bowel sounds; No non-tender, No ascites, No distended, No firm, No hepatomegaly, No mass, No rebound or guarding, No splenomegaly, No surgical scars, No tender, No other Musculoskeletal: joint tenderness, muscle tone, muscle weakness; No nl extremities to inspection, No nl gait and stance, No range of motion, No spine non-tender, No swelling, No other Extremities: No normal pulses, No calf tenderness, No cyanosis, No clubbing, No edema, No pitting pedal edema, No palpable cord, No tenderness, No other Neurological: SIEVE REPAIRER 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; No nl mental status, No nl speech, No nl strength, No confused, No DTR's symmetric, No focal weakness, No lethargic, No numbness, No reflexes, No unresponsive, No other Skin: No nl turgor, No rash or lesions, No diaphoresis, No ecchymosis, No laceration, No puncture, No other Lymph: No nl lymph nodes, No enlarged, No nontender, No other Results Result Diagram: 12/08/18 0418 12/11/18 0423 Results 24hrs Laboratory Tests Test 12/11/18 04:23 Sodium Level 139 Potassium Level 3.7 Chloride Level 101 Carbon Dioxide Level 31 Anion Gap 7 Blood Urea Nitrogen 26 H Creatinine 0.70 Est Glomerular Filtrat Rate mL/min > 60 Glucose Level 98 Calcium Level 7.8 L Medications Medication Current Medications Morphine Sulfate (morphine) 2 mg Q4H PRN IV SEVERE PAIN LEVEL 7-10 Last administered on 12/09/18 22:33; Admin Dose 2 MG; Start 10/22/18 at 01:30 Phenol (Cepastat Lozenge) 1 lozenge Q1H PRN MT sore throat Last administered on 10/31/18 18:34; Admin Dose 1 LOZENGE; Start 10/27/18 at 21:30 Metolazone (Zaroxolyn) 2.5 mg BID@0530,1730 PO Last administered on 12/11/18 17:47; Admin Dose 2.5 MG; Start 11/01/18 at 05:30 Enoxaparin Sodium (Lovenox) 40 mg DAILY SC Last administered on 11/23/18 09:02; Admin Dose 40 MG; Start 11/02/18 at 09:00; Status Hold Ibuprofen (Motrin) 400 mg Q6H PRN PO MILD PAIN(1-3) OR TEMP>38C Last administered on 12/09/18 02:07; Admin Dose 400 MG; Start 11/07/18 at 12:20 Potassium Chloride (Klor-Con 20) 20 meq BID PO Last administered on 12/11/18 20:45; Admin Dose 20 MEQ; Start 11/11/18 at 09:00 Ondansetron HCl (Zofran Inj) 4 mg Q6H PRN IV NAUSEA AND/OR VOMITING Last administered on 11/19/18 20:21; Admin Dose 4 MG; Start 11/19/18 at 20:30 Bumetanide (Bumex) 0.5 mg DAILY PO Last administered on 12/11/18 08:57; Admin Dose 0.5 MG; Start 11/20/18 at 09:00 Diphenhydramine HCl (Benadryl) 25 mg Q8H PRN PO ITCHING Last administered on 12/11/18 21:42; Admin Dose 25 MG; Start 11/20/18 at 14:00 Bisacodyl (Dulcolax Supp) 10 mg Q8H PRN [place] CONSTIPATION; Start 11/20/18 at 17:30 Guaifenesin/ Codeine Phosphate (Robitussin Ac Liquid Cup) 10 ml Q4H PRN PO COUGH; Start 11/20/18 at 17:30 Magnesium Hydroxide (Milk Of Mag) 30 ml DAILY PRN PO CONSTIPATION Last administered on 11/24/18 08:45; Admin Dose 30 ML; Start 11/20/18 at 17:30 Simethicone (Mylicon) 80 mg Q8H PRN PO INDIGESTION; Start 11/20/18 at 23:30 Escitalopram Oxalate (Lexapro) 10 mg DAILY PO Last administered on 12/11/18 08:57; Admin Dose 10 MG; Start 11/24/18 at 19:00 Anastrozole (Arimidex) 1 mg DAILY PO Last administered on 12/11/18 09:01; Admin Dose 1 MG; Start 11/25/18 at 10:30 Carvedilol (Coreg) 3.125 mg BID PO Last administered on 12/11/18 20:44; Admin Dose 3.125 MG; Start 11/25/18 at 10:30 Docusate Sodium (Colace) 100 mg BID PO Last administered on 12/11/18 20:45; Admin Dose 100 MG; Start 11/25/18 at 10:30 Loratadine (Claritin) 10 mg DAILY PO Last administered on 12/11/18 08:57; Admin Dose 10 MG; Start 11/25/18 at 10:30 Pantoprazole (Protonix Tab) 40 mg AC BREAKFAST PO Last administered on 12/11 05:36; Admin Dose 40 MG; Start 11/25/18 at 10:30 Polyethylene Glycol (Miralax) 17 gm DAILY PO Last administered on 12/11/18 08:58; Admin Dose 17 GM; Start 11/25/18 at 10:30 Spironolactone (Aldactone) 50 mg DAILY PO Last administered on 12/11/18 08:57; Admin Dose 50 MG; Start 11/25/18 at 10:30 Diclofenac Sodium (Voltaren 1% Gel) 2 gm QID TP Last administered on 12/11/18 20:45; Admin Dose 2 GM; Start 11/27/18 at 22:00 Oxycodone HCl (Oxycontin) 20 mg BID PO Last administered on 12/11/18at 20:44; Admin Dose 20 MG; Start 12/01/18 at 09:00 Budesonide (Pulmicort (Neb)) 0.5 mg BID RESP THERAPY PRN HHN WHEEZING; Start 12/01/18 at 13:00 Zolpidem Tartrate (Ambien) 10 mg HS PRN PO INSOMNIA; Start 12/02/18 at 20:00 Ergocalciferol (Drisdol) 50,000 unit Q7D PO Last administered on 12/10/18 16:21; Admin Dose 50,000 UNIT; Start 12/03/18 at 16:00 Neomycin/ Polymyxin/ Hydrocortisone (Cortisporin Otic Susp) 4 drop TID LEFT EAR Last administered on 12/11/18at 20:45; Admin Dose 4 DROP; Start 12/08/18 at 23:00; Stop 12/13/18 at 22:59 DES DUNAWAY MD Dec 11, 2018 23:29
[2018-12-12 03:40] VITALS: BP 104/67; PULSE 96; RESP 18
[2018-12-12] MEDS: PANTOPRAZOLE (EC) 40 MG TAB PO SCH (06:14)
[2018-12-12] MEDS: METOLAZONE 2.5 MG TAB PO SCH ×2 (06:17→17:35)
[2018-12-12 07:53] VITALS: BP 129/73; PULSE 82; RESP 18
[2018-12-12] MEDS: LORATADINE 10 MG TAB PO SCH (08:19)
[2018-12-12] MEDS: DOCUSATE SODIUM 100 MG CAP PO SCH ×2 (08:19→21:29)
[2018-12-12] MEDS: BUMETANIDE 0.5 MG TAB PO SCH (08:19)
[2018-12-12] MEDS: SPIRONOLACTONE 50 MG TAB PO SCH (08:19)
[2018-12-12] MEDS: oxyCODONE (CR) 20 MG TAB [oxyCONTIN] PO SCH ×2 (08:20→21:30)
[2018-12-12] MEDS: POTASSIUM CHLORIDE (SR) 20 MEQ TAB PO SCH ×2 (08:20→21:30)
[2018-12-12] MEDS: NEOMYC/POLYMYX/HC 10 ML OTIC SUSP LEFT EAR SCH ×3 (08:20→21:29)
[2018-12-12] MEDS: POLYETHYLENE GLYCOL 17 GM PACKET PO SCH (08:20)
[2018-12-12] MEDS: DICLOFENAC SODIUM 1% GEL 100 GM TUBE TP SCH ×4 (08:20→21:29)
[2018-12-12] MEDS: ESCITALOPRAM 10 MG TAB PO SCH (08:20)
[2018-12-12] MEDS: ANASTROZOLE 1 MG TAB PO SCH (08:21)
--- NOTE | 2018-12-12 13:47 | CONS ---
Assessment/Plan Assessment/Plan Hospital Course (Demo Recall) IMPRESSION: 1. Congestive heart failure exacerbation would be diastolic, acute on chronic by most recent echo.-now s/p echo this admit with EF 60/small effusion 2. Abnormal electrocardiogram with low voltage, rule out pericardial effusion. 3. Hypertension-currently borderline hypotension 4. Metastatic breast carcinoma. 5. History of pathologic fractures of the leg, status post open reduction and internal fixation. 6. Anemia. 7. Increased BNP consistent with patient's congestive heart failure. 8. Pericardial effusion-small by echo 9. Edema-LE venous RAMÍREZ neg for DVT 10. Hypokalemia 11.Wrist fracture acute by films 11/20-conservative management at this time 12. Pleural effusion s/p recurrent thoracentesis last 12/04 Recc: -On med-surg -Continued on metolazone BID with low dose PO bumex and aldactone with overall reasonable volume status and resolution of much of LLE edema but given cxr findings will give extra dose of bumex today to increase diuresis -renal and onc following -continue low dose coreg as tolerated only -continue conservative management of wrist fracture -? need for pleur-x catheter Consultation Date/Type/Reason Admit Date/Time October 21, 2018 at 17:39 Initial Consult Date 10/21/18 Type of Consult Cardiology Reason for Consultation CHF Requesting Provider: RUSS JEROME MD Date/Time of Note DATE: 12/12/18 TIME: 13:45 Exam/Review of Systems Vital Signs Vitals Vital Signs Date Temp Pulse Resp B/P (MAP) Pulse Ox O2 O2 Flow FiO2 Time Delivery Rate 12/12/18 98.5 82 18 129/73 91 Room Air 07:53 (91) Intake and Output 12/11/18 12/11/18 12/12/18 1515:00 23:00 07:00 IntakeIntake Total 380 ml BalanceBalance 380 ml Exam Exam Review of Systems: CONSTITUTIONAL: No fevers, chills. PULMONARY: No sob CARDIOVASCULAR: No chest pain/palpitations GASTROINTESTINAL: No nausea/vomiting. GENITOURINARY: No hematuria/dysuria. MUSCULOSKELETAL: No myagias/arthalgias. PSYCHIATRIC: The patient denies depression. NEUROLOGIC: No weakness Constitutional: alert, oriented Psych: no complaints Head: normocephalic ENMT: mucosa pink and moist Neck: supple, jvd (9 cm water) Respiratory: diminished breath sounds (at bases/B but overall good air movement) Cardiovascular: regular rate and rhythm Gastrointestinal: soft, non-tender Musculoskeletal: muscle weakness (nmild generalized) Extremities: edema (R>>L) Labs Result Diagram: 12/08/188 12/11/18 0423 Medications Medications Current Medications Morphine Sulfate (morphine) 2 mg Q4H PRN IV SEVERE PAIN LEVEL 7-10 Last administered on 12/09/18 22:33; Admin Dose 2 MG; Start 10/22/18 at 01:30 Phenol (Cepastat Lozenge) 1 lozenge Q1H PRN MT sore throat Last administered on 10/31/18 18:34; Admin Dose 1 LOZENGE; Start 10/27/18 at 21:30 Metolazone (Zaroxolyn) 2.5 mg BID@0530,1730 PO Last administered on 12/12/18 06:17; Admin Dose 2.5 MG; Start 11/01/18 at 05:30 Enoxaparin Sodium (Lovenox) 40 mg DAILY SC Last administered on 11/23/18 09:02; Admin Dose 40 MG; Start 11/02/18 at 09:00; Status Hold Ibuprofen (Motrin) 400 mg Q6H PRN PO MILD PAIN(1-3) OR TEMP>38C Last administered on 12/09/18 02:07; Admin Dose 400 MG; Start 11/07/18 at 12:20 Potassium Chloride (Klor-Con 20) 20 meq BID PO Last administered on 12/12/18 08:20; Admin Dose 20 MEQ; Start 11/11/18 at 09:00 Ondansetron HCl (Zofran Inj) 4 mg Q6H PRN IV NAUSEA AND/OR VOMITING Last administered on 11/19/18 20:21; Admin Dose 4 MG; Start 11/19/18 at 20:30 Bumetanide (Bumex) 0.5 mg DAILY PO Last administered on 12/12/18 08:19; Admin Dose 0.5 MG; Start 11/20/18 at 09:00 Diphenhydramine HCl (Benadryl) 25 mg Q8H PRN PO ITCHING Last administered on 12/11/18 21:42; Admin Dose 25 MG; Start 11/20/18 at 14:00 Bisacodyl (Dulcolax Supp) 10 mg Q8H PRN [place] CONSTIPATION; Start 11/20/18 at 17:30 Guaifenesin/ Codeine Phosphate (Robitussin Ac Liquid Cup) 10 ml Q4H PRN PO COUGH; Start 11/20/18 at 17:30 Magnesium Hydroxide (Milk Of Mag) 30 ml DAILY PRN PO CONSTIPATION Last administered on 11/24/18 08:45; Admin Dose 30 ML; Start 11/20/18 at 17:30 Simethicone (Mylicon) 80 mg Q8H PRN PO INDIGESTION; Start 11/20/18 at 23:30 Escitalopram Oxalate (Lexapro) 10 mg DAILY PO Last administered on 12/12/18 08:20; Admin Dose 10 MG; Start 11/24/18 at 19:00 Anastrozole (Arimidex) 1 mg DAILY PO Last administered on 12/12/18 08:21; Admin Dose 1 MG; Start 11/25/18 at 10:30 Carvedilol (Coreg) 3.125 mg BID PO Last administered on 12/12/18 08:19; Admin Dose 3.125 MG; Start 11/25/18 at 10:30 Docusate Sodium (Colace) 100 mg BID PO Last administered on 12/12/18 08:19; Admin Dose 100 MG; Start 11/25/18 at 10:30 Loratadine (Claritin) 10 mg DAILY PO Last administered on 12/12/18 08:19; Ad min Dose 10 MG; Start 11/25/18 at 10:30 Pantoprazole (Protonix Tab) 40 mg AC BREAKFAST PO Last administered on 12/12/18 06:14; Admin Dose 40 MG; Start 11/25/18 at 10:30 Polyethylene Glycol (Miralax) 17 gm DAILY PO Last administered on 12/12/18 08:20; Admin Dose 17 GM; Start 11/25/18 at 10:30 Spironolactone (Aldactone) 50 mg DAILY PO Last administered on 12/12/18 08:19; Admin Dose 50 MG; Start 11/25/18 at 10:30 Diclofenac Sodium (Voltaren 1% Gel) 2 gm QID TP Last administered on 6/27/19at 12:25; Admin Dose 2 GM; Start 11/27/18 at 22:00 Oxycodone HCl (Oxycontin) 20 mg BID PO Last administered on 12/12/18at 08:20; Admin Dose 20 MG; Start 12/01/18 at 09:00 Budesonide (Pulmicort (Neb)) 0.5 mg BID RESP THERAPY PRN HHN WHEEZING; Start 12/01/18 at 13:00 Zolpidem Tartrate (Ambien) 10 mg HS PRN PO INSOMNIA; Start 12/02/18 at 20:00 Ergocalciferol (Drisdol) 50,000 unit Q7D PO Last administered on 12/10/18at 16:21; Admin Dose 50,000 UNIT; Start 12/03/18 at 16:00 Neomycin/ Polymyxin/ Hydrocortisone (Cortisporin Otic Susp) 4 drop TID LEFT EAR Last administered on 12/12/18at 12:25; Admin Dose 4 DROP; Start 12/08/18 at 23:00; Stop 12/13/18 at 22:59 KAMILA TEERSA Dec 12, 2018 13:47
[2018-12-12] MEDS ORDERED: BUMETANIDE 1 MG TAB PO ONE (14:30)
--- NOTE | 2018-12-12 14:53 | PN ---
Date/Time of Note Date/Time of Note DATE: 12/12/18 TIME: 14:47 Assessment/Plan VTE [place] [facility] [place]: 8 [place] [facility] [place] Yes Pharmacological prophylaxis: NA/contraindicated Pharm contraindication: other Lines/Catheters IV [facility]atheter Type (from [facility]): PORT-A-CATH Urinary Cath still in place: No Assessment/Plan Hospital Course Patient remains hemodynamically stable, afebrile denies any shortness of breath. Patient complains of left ear pain, CT of the brain from November 19 with partial opacification of the bilateral mastoid air cells , left greater than right. Will obtain ID consult Dr. Shi. Chest x-ray from today revealed cardiomegaly with new central vascular congestion and mild pulmonary edema, persistent small bilateral pleural effusions with bibasilar atelectasis/infiltrate. No indications for thoracentesis. Continue incentive spirometer and diuretics per cardiology recommendations. Assessment/Plan -Metastatic left breast cancer with pulmonary, liver, and bone involvement. S/p chemo which is on hold now. Continued on Arimidex. Dr. Fernández is following in oncology consultation. -Recurrent pleural effusions requiring bilateral thoracentesis -Diastolic congestive heart failure, patient is currently on Aldactone, Bumex, and Coreg. Dr. Hurtado is following in cardiology consultation. -Acute on chronic pain, continue OxyContin twice daily and morphine as needed -Status post R hip arthroplasty due to lytic fracture -Status post recent fall with left wrist fracture that is being treated conservatively -Left lower extremity lymphedema -Obesity Further recommendations based on clinical course. Plan of care discussed with Dr. Peñaloza. Result Diagram: 12/08/18 0418 12/11/18 0423 Exam/Review of Systems Exam Vitals Vital Signs Date Temp Pulse Resp B/P (MAP) Pulse Ox O2 O2 Flow FiO2 Time Delivery Rate 12/12/18 98.5 82 18 129/73 91 Room Air 07:53 (91) Intake and Output 12/11/18 12/11/18 12/12/18 1515:00 23:00 07:00 IntakeIntake Total 380 ml BalanceBalance 380 ml Exam Constitutional: alert, oriented Respiratory: clear to auscultation Cardiovascular: nl pulses Gastrointestinal: soft, non-tender Extremities: edema Neurological: nl mental status Skin: nl turgor Additional Comments Right chest Port-A-Cath Medications Medication Current Medications Morphine Sulfate (morphine) 2 mg Q4H PRN IV SEVERE PAIN LEVEL 7-10 Last administered on 12/09/18 22:33; Admin Dose 2 MG; Start 10/22/18 at 01:30 Phenol (Cepastat Lozenge) 1 lozenge Q1H PRN MT sore throat Last administered on 10/31/18 18:34; Admin Dose 1 LOZENGE; Start 10/27/18 at 21:30 Metolazone (Zaroxolyn) 2.5 mg BID@0530,1730 PO Last administered on 12/12/18 06:17; Admin Dose 2.5 MG; Start 11/01/18 at 05:30 Enoxaparin Sodium (Lovenox) 40 mg DAILY SC Last administered on 11/23/18 09:02; Admin Dose 40 MG; Start 11/02/18 at 09:00; Status Hold Ibuprofen (Motrin) 400 mg Q6H PRN PO MILD PAIN(1-3) OR TEMP>38C Last administered on 12/09/18 02:07; Admin Dose 400 MG; Start 11/07/18 at 12:20 Potassium Chloride (Klor-Con 20) 20 meq BID PO Last administered on 12/12/18 08:20; Admin Dose 20 MEQ; Start 11/11/18 at 09:00 Ondansetron HCl (Zofran Inj) 4 mg Q6H PRN IV NAUSEA AND/OR VOMITING Last administered on 11/19/18 20:21; Admin Dose 4 MG; Start 11/19/18 at 20:30 Bumetanide (Bumex) 0.5 mg DAILY PO Last administered on 12/12/18 08:19; Admin Dose 0.5 MG; Start 11/20/18 at 09:00 Diphenhydramine HCl (Benadryl) 25 mg Q8H PRN PO ITCHING Last administered on 12/11/18 21:42; Admin Dose 25 MG; Start 11/20/18 at 14:00 Bisacodyl (Dulcolax Supp) 10 mg Q8H PRN [place] CONSTIPATION; Start 11/20/18 at 17:30 Guaifenesin/ Codeine Phosphate (Robitussin Ac Liquid Cup) 10 ml Q4H PRN PO COUGH; Start 11/20/18 at 17:30 Magnesium Hydroxide (Milk Of Mag) 30 ml DAILY PRN PO CONSTIPATION Last administered on 11/24/18 08:45; Admin Dose 30 ML; Start 11/20/18 at 17:30 Simethicone (Mylicon) 80 mg Q8H PRN PO INDIGESTION; Start 11/20/18 at 23:30 Escitalopram Oxalate (Lexapro) 10 mg DAILY PO Last administered on 12/12/18 08:20; Admin Dose 10 MG; Start 11/24/18 at 19:00 Anastrozole (Arimidex) 1 mg DAILY PO Last administered on 12/12/18 08:21; Admin Dose 1 MG; Start 11/25/18 at 10:30 Carvedilol (Coreg) 3.125 mg BID PO Last administered on 12/12/18 08:19; Admin Dose 3.125 MG; Start 11/25/18 at 10:30 Docusate Sodium (Colace) 100 mg BID PO Last administered on 12/12/18 08:19; Admin Dose 100 MG; Start 11/25/18 at 10:30 Loratadine (Claritin) 10 mg DAILY PO Last administered on 12/12/18 08:19; Admin Dose 10 MG; Start 11/25/18 at 10:30 Pantoprazole (Protonix Tab) 40 mg AC BREAKFAST PO Last administered on 12/12/18 06:14; Admin Dose 40 MG; Start 11/25/18 at 10:30 Polyethylene Glycol (Miralax) 17 gm DAILY PO Last administered on 12/12/18 08:20; Admin Dose 17 GM; Start 11/25/18 at 10:30 Spironolactone (Aldactone) 50 mg DAILY PO Last administered on 12/12/18 08:19; Admin Dose 50 MG; Start 11/25/18 at 10:30 Diclofenac Sodium (Voltaren 1% Gel) 2 gm QID TP Last administered on 12/12/18 12:25; Admin Dose 2 GM; Start 11/27/18 at 22:00 Oxycodone HCl (Oxycontin) 20 mg BID PO Last administered on 12/12/18 08:20; Admin Dose 20 MG; Start 12/01/18 at 09:00 Budesonide (Pulmicort (Neb)) 0.5 mg BID RESP THERAPY PRN HHN WHEEZING; Start 12/01/18 at 13:00 Zolpidem Tartrate (Ambien) 10 mg HS PRN PO INSOMNIA; Start 12/02/18 at 20:00 Ergocalciferol (Drisdol) 50,000 unit Q7D PO Last administered on 12/10/18at 16:21; Admin Dose 50,000 UNIT; Start 12/03/18 at 16:00 Neomycin/ Polymyxin/ Hydrocortisone (Cortisporin Otic Susp) 4 drop TID LEFT EAR Last administered on 12/12/18at 12:25; Admin Dose 4 DROP; Start 12/08/18 at 23:00; Stop 12/13/18 at 22:59 YEISON SOLIZ Dec 12, 2018 14:53
[2018-12-12 15:21] VITALS: BP 107/61; PULSE 90; RESP 18
[2018-12-12] MEDS: AMPICILLIN/SULB 3 GM/NS (PMX) 100 ML IVPB SCH (17:34)
--- NOTE | 2018-12-12 18:27 | CONS ---
DATE OF ADMISSION: 10/21/2018 DATE OF CONSULTATION: 12/12/2018 TYPE OF CONSULTATION: Infectious disease. REASON FOR CONSULTATION: Antibiotic management for an earache. HISTORY OF PRESENT ILLNESS: The patient is a 58-year-old female, who presented with acute dyspnea an d was treated with albuterol nebulizer. She had numerous problems includin. Metastatic left breast cancer, on chemotherapy and radiation. 2. Congestive heart failure. 3. Hypertension. 4. Depression. 5. Chronic low back pain. 6. GERD. 7. Anxiety. 8. PTSD. 9. Right hip surgery. 10. Port-A-Cath into the right chest. The patient has had a long stormy course. She was seen by [facility] physicians including Dr. Tayla Fernández for oncology, Dr. Gastelum for nephrology, Dr. Hurtado for cardiology. Currently, she remains hemodynamically stable. Denies shortness of breath. She as far has her metastatic left breast cancer. She has pulmonary, liver and bone involvement, status pos t chemotherapy, which is on hold now. Continued on Arimidex. Recurrent pleural effusions, requiring bilateral thoracentesis. Diastolic congestive heart failure, on Aldactone, Bumex and Coreg, Dr. Alfred granados is following. Acute on chronic pain, she is on OxyContin twice daily and morphine as needed. S he is status post right hip arthroplasty due to lytic fracture. Status post recent fall with left wr ist fracture that is being treated conservatively. Left lower extremity lymphedema and obesity. On the , the white count was 3.6, H and H 12.5 and 38.2, platelet count 145,000. BUN and creatinine 26/0.7. She now complains of left ear pain. A CT scan of the brain from November 19 shows partial opa cification, bilateral mastoid air cells, left greater than right. Her chest x-ray today reveals card iomegaly with new central vascular congestion, mild pulmonary edema, persistent small bilateral pleur al effusions with bibasilar atelectasis and infiltrate. PHYSICAL EXAMINATION: GENERAL: The patient is a well-developed, somewhat obese, pleasant female, who is alert, responsive, complaining of left ear pain. SKIN: Without generalized rash. HEENT: Specifically for her ear, her left ear has some cerumen and looks slightly pink in terms of t he tympanic membrane from what can be seen. The right ear is clear. Mouth without pharyngeal exudat e. NECK: Supple. CHEST: Decreased breath sounds at bases. HEART: Without murmur or gallop. ABDOMEN: Soft, nontender, without organosplenomegaly or masses. THORAX: Right chest Port-A-Cath. EXTREMITIES: Without cyanosis, clubbing, or edema. RECTAL AND GENITAL: Deferred. NEUROLOGIC: No focal neurological abnormality. IMPRESSION AND PLAN: The patient can be started on Unasyn, which is ampicillin and sulbactam gram q. 6. She is on neomycin, polymyxin and hydrocortisone otic suspension 4 drops t.i.d. I tried to find out if we could get for ear pain, but the pharmacy formulary does not carry it and I am not nicki e if it still on the market. We will continue to follow in her care. I will dictate my findings to Dr. Odell and nurse practitioner Yaquelin and the aforementioned consultants. Dictated By: PAPA STEVENSON MD, JD/KEANU Conf#: [id number] DID#: [id number] CC: RUSS JEROME MD; SONIA ODELL MD; ALMA CORDOVA MD;*End*
[2018-12-12 19:55] VITALS: BP 107/69; PULSE 90; RESP 18
--- NOTE | 2018-12-12 21:11 | CONS ---
Assessment/Plan Assessment/Plan Hospital Course (Demo Recall) METASTATIC BREAST CANCER WITH PRIMARY ADENOCARCINOMA IN the left breast. MULTIPLE BONY METS, PULMONARY METS, LIVER METS CHEMO ON HOLD PT HAS A VERY GOOD RESPONSE TO CHEMO AND AI CONT AI FOR NOW CT ABD FOR RESTAGING 08.27.18, 12.04.18 - noted , stable POST aredia Leukopenia- post chemo, FLUCTUATING post NEUPOGEN monitor closely post Neutropenia with occasional fever and chills. - resolved Anemia chronic disease SOB PLEURAL EFFUSIONS, NEG CYTOLOGY POST thoracentesis Fluid overload diuretic cardiology F-UP Severe pain in the interscapular and lumbar sacral area most probably metastatic lesion possible femoral fracture. pathologic fracture of T9 with 60% of loss of height. Bony pain with multiple bony mets post XRT d/w dr Ocampo HYPOKALEMIA- REPLACED Obesity. Weight loss 60 pounds during the last 2 years COUGH, Upper respiratory infection pharyngitis with dry cough. POST ATB PMS. Myopia. Anxiety disorder. Claustrophobia. Posttraumatic stress disorder. Pain in the left forearm with a history of fracture of ulna and radius. Tachycardia Hypoxemia at night marginal improved after 2 L of nasal cannula oxygen. Deconditioning Pain syndrome. Today the most painful zone is in the right hip area. X-ray did not show any fractures. Hyponatremia- resolved Hypoalbuminemia Right sided cp after catheter insertion and correction less discomfort. Decreased edema both lower extremities with hypotension-improving Swelling of the left forearm-persist. Consultation Date/Type/Reason Admit Date/Time October 21, 2018 at 17:39 Initial Consult Date 10/21/18 Type of Consult [facility] Requesting Provider: RUSS JEROME MD Date/Time of Note DATE: 12/12/18 TIME: 21:11 Exam/Review of Systems Exam Vitals Vital Signs Date Temp Pulse Resp B/P (MAP) Pulse Ox O2 O2 Flow FiO2 Time Delivery Rate 12/12/18 98.5 90 18 107/69 92 19:55 (82) 12/12/18 Room Air 15:21 Intake and Output 12/11/18 12/11/18 12/12/18 1515:00 23:00 07:00 IntakeIntake Total 380 ml BalanceBalance 380 ml Exam Constitutional: alert, oriented, well developed, distress, frail; No non-verbal, No obese, No other Psych: nl mood/affect, anxiety, depression; No no complaints, No confusion, No suicidal, No other Head: normocephalic, atraumatic; No lacerations, No hematomas, No other Eyes: EOMI, nl lids, PERRL; No nl conjunctiva, No nl sclera, No icteric, No fundi, disc, No other ENMT: nl lips & teeth, tympanic membranes; No nl external ears & nose, No nl nasal mucosa & septum, No mucosa pink and moist, No intubated, No other Neck: jvd, bruits; No supple, No non-tender, No masses, No thyromegaly, No nuchal rigidity, No other Respiratory: clear to auscultation (Upper parts with pleural friction rub lower parts.), congested cough, diminished breath sounds; No normal air movement, No crackles/rales, No intercostal retraction, No labored breathing, No respirations, No tactile fremitus, No wheezing, No other Cardiovascular: regular rate and rhythm, edema, systolic murmur; No nl pulses, No bruits, No diastolic murmur, No gallop, No irregular rhythm, No jugular venous distention (JVD), No murmurs/extra sounds, No rub, No S3, No S4, No other Gastrointestinal: soft, nl liver, spleen, bowel sounds; No non-tender, No ascites, No distended, No firm, No hepatomegaly, No mass, No rebound or guarding, No splenomegaly, No surgical scars, No tender, No other Musculoskeletal: joint tenderness, muscle tone, muscle weakness; No nl extremities to inspection, No nl gait and stance, No range of motion, No spine non-tender, No swelling, No other Extremities: No normal pulses, No calf tenderness, No cyanosis, No clubbing, No edema, No pitting pedal edema, No palpable cord, No tenderness, No other 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: 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; No nl mental status, No nl speech, No nl strength, No confused, No DTR's symmetric, No focal weakness, No lethargic, No numbness, No reflexes, No unresponsive, No other Skin: No nl turgor, No rash or lesions, No diaphoresis, No ecchymosis, No laceration, No puncture, No other Lymph: No nl lymph nodes, No enlarged, No nontender, No other Results Result Diagram: 12/08/18 0418 12/11/18 0423 Medications Medication Current Medications Morphine Sulfate (morphine) 2 mg Q4H PRN IV SEVERE PAIN LEVEL 7-10 Last administered on 12/09/18 22:33; Admin Dose 2 MG; Start 10/22/18 at 01:30 Phenol (Cepastat Lozenge) 1 lozenge Q1H PRN MT sore throat Last administered on 10/31/18 18:34; Admin Dose 1 LOZENGE; Start 10/27/18 at 21:30 Metolazone (Zaroxolyn) 2.5 mg BID@0530,1730 PO Last administered on 12/12/18 17:35; Admin Dose 2.5 MG; Start 11/01/18 at 05:30 Enoxaparin Sodium (Lovenox) 40 mg DAILY SC Last administered on 11/23/18 09:02; Admin Dose 40 MG; Start 11/02/18 at 09:00; Status Hold Ibuprofen (Motrin) 400 mg Q6H PRN PO MILD PAIN(1-3) OR TEMP>38C Last administered on 12/09/18 02:07; Admin Dose 400 MG; Start 11/07/18 at 12:20 Potassium Chloride (Klor-Con 20) 20 meq BID PO Last administered on 12/12/18 08:20; Admin Dose 20 MEQ; Start 11/11/18 at 09:00 Ondansetron HCl (Zofran Inj) 4 mg Q6H PRN IV NAUSEA AND/OR VOMITING Last administered on 11/19/18 20:21; Admin Dose 4 MG; Start 11/19/18 at 20:30 Bumetanide (Bumex) 0.5 mg DAILY PO Last administered on 12/12/18 08:19; Admin Dose 0.5 MG; Start 11/20/18 at 09:00 Diphenhydramine HCl (Benadryl) 25 mg Q8H PRN PO ITCHING Last administered on 12/11/18 21:42; Admin Dose 25 MG; Start 11/20/18 at 14:00 Bisacodyl (Dulcolax Supp) 10 mg Q8H PRN [place] CONSTIPATION; Start 11/20/18 at 17:30 Guaifenesin/ Codeine Phosphate (Robitussin Ac Liquid Cup) 10 ml Q4H PRN PO COUGH; Start 11/20/18 at 17:30 Magnesium Hydroxide (Milk Of Mag) 30 ml DAILY PRN PO CONSTIPATION Last administered on 11/24/18 08:45; Admin Dose 30 ML; Start 11/20/18 at 17:30 Simethicone (Mylicon) 80 mg Q8H PRN PO INDIGESTION; Start 11/20/18 at 23:30 Escitalopram Oxalate (Lexapro) 10 mg DAILY PO Last administered on 12/12/18 08 :20; Admin Dose 10 MG; Start 11/24/18 at 19:00 Anastrozole (Arimidex) 1 mg DAILY PO Last administered on 12/12/18 08:21; Admin Dose 1 MG; Start 11/25/18 at 10:30 Carvedilol (Coreg) 3.125 mg BID PO Last administered on 12/12/18 08:19; Admin Dose 3.125 MG; Start 11/25/18 at 10:30 Docusate Sodium (Colace) 100 mg BID PO Last administered on 12/12/18 08:19; Admin Dose 100 MG; Start 11/25/18 at 10:30 Loratadine (Claritin) 10 mg DAILY PO Last administered on 12/12/18 08:19; Admin Dose 10 MG; Start 11/25/18 at 10:30 Pantoprazole (Protonix Tab) 40 mg AC BREAKFAST PO Last administered on 9at 06:14; Admin Dose 40 MG; Start 11/25/18 at 10:30 Polyethylene Glycol (Miralax) 17 gm DAILY PO Last administered on 12/12/18 08:20; Admin Dose 17 GM; Start 11/25/18 at 10:30 Spironolactone (Aldactone) 50 mg DAILY PO Last administered on 12/12/18 08:19; Admin Dose 50 MG; Start 11/25/18 at 10:30 Diclofenac Sodium (Voltaren 1% Gel) 2 gm QID TP Last administered on 12/12/18 17:34; Admin Dose 2 GM; Start 11/27/18 at 22:00 Oxycodone HCl (Oxycontin) 20 mg BID PO Last administered on 12/12/18 08:20; Admin Dose 20 MG; Start 12/01/18 at 09:00 Budesonide (Pulmicort (Neb)) 0.5 mg BID RESP THERAPY PRN HHN WHEEZING; Start 12/01/18 at 13:00 Zolpidem Tartrate (Ambien) 10 mg HS PRN PO INSOMNIA; Start 12/02/18 at 20:00 Ergocalciferol (Drisdol) 50,000 unit Q7D PO Last administered on 12/10/18at 16:21; Admin Dose 50,000 UNIT; Start 12/03/18 at 16:00 Neomycin/ Polymyxin/ Hydrocortisone (Cortisporin Otic Susp) 4 drop TID LEFT EAR Last administered on 12/12/18at 12:25; Admin Dose 4 DROP; Start 12/08/18 at 23:00; Stop 12/13/18 at 22:59 Ampicillin Sodium/ Sulbactam Sodium 100 ml @ 100 mls/hr Q6 IVPB Last administered on 12/12/18at 17:34; Admin Dose 100 MLS/HR; Start 12/12/18 at 17:00 DES DUNAWAY MD Dec 12, 2018 21:11
[2018-12-13] MEDS: AMPICILLIN/SULB 3 GM/NS (PMX) 100 ML IVPB SCH ×4 (00:50→18:27)
[2018-12-13 00:58] VITALS: BP 138/68; PULSE 86; RESP 18
[2018-12-13] MEDS: PANTOPRAZOLE (EC) 40 MG TAB PO SCH (05:43)
[2018-12-13] MEDS: METOLAZONE 2.5 MG TAB PO SCH ×2 (05:45→17:42)
[2018-12-13 08:06] VITALS: BP 102/74; PULSE 81; RESP 19
--- NOTE | 2018-12-13 08:48 | PN ---
Date/Time of Note Date/Time of Note DATE: 12/13/18 TIME: 08:47 Assessment/Plan VTE Prophylaxis Risk score (from [facility] [place])>0 risk: 13 SCD applied (from [facility] [place]): Yes SCD contraindicated: other Pharmacological prophylaxis: other Pharm contraindication: other Lines/Catheters IV Catheter Type (from [facility]): PORT-A-CATH Central line still needed: Yes Urinary Cath still in place: No Assessment/Plan Assessment/Plan - Hypokalemia- replace K, am BMP -Metastatic left breast cancer with pulmonary, liver, and bone involvement. S/p chemo which is on hold now. Continued on Arimidex. - Dr. Fernández is following in oncology consultation. -Recurrent pleural effusions requiring bilateral thoracentesis -Diastolic congestive heart failure, patient is currently on Aldactone, Bumex, and Coreg. Dr. Hurtado is following in cardiology consultation. -Acute on chronic pain, continue OxyContin twice daily and morphine as needed -Status post R hip arthroplasty due to lytic fracture -Status post recent fall with left wrist fracture that is being treated conservatively -Left lower extremity lymphedema -Obesity Further recommendations based on clinical course. Plan of care discussed with Dr. Peñaloza. Result Diagram: 12/11/18 0423 Subjective 24 Hr Interval Summary Free Text/Dictation resting Afebrile seems comfortable; denies an y complaints no events overnight dw staff Eyes: no complaints ENT: no complaints Respiratory: no complaints Cardiovascular: no complaints Gastrointestinal: no complaints Genitourinary: no complaints Musculoskeletal: restricted range of motion Skin: no complaints Neurologic: no complaints Endocrine: no complaints Lymphatic: no complaints Psychological: nl mood/affect Exam/Review of Systems Exam Vitals Vital Signs Date Temp Pulse Resp B/P (MAP) Pulse Ox O2 O2 Flow FiO2 Time Delivery Rate 12/13/18 98.4 81 19 102/74 91 08:06 (83) 12/12/18 Room Air 15:21 Intake and Output 12/12/18 12/12/18 12/13/18 1515:00 23:00 07:00 IntakeIntake Total 400 ml 300 ml 100 ml BalanceBalance 400 ml 300 ml 100 ml Constitutional: alert, well developed, obese Head: normocephalic Eyes: nl lids, nl sclera ENMT: nl external ears & nose Neck: non-tender Respiratory: clear to auscultation Cardiovascular: nl pulses, other (S1S2) Gastrointestinal: soft, non-tender Musculoskeletal: muscle weakness, range of motion Extremities: edema Neurological: nl speech, other (alert/responsive) Medications Medication Current Medications Morphine Sulfate (morphine) 2 mg Q4H PRN IV SEVERE PAIN LEVEL 7-10 Last administered on 12/09/18 22:33; Admin Dose 2 MG; Start 10/22/18 at 01:30 Phenol (Cepastat Lozenge) 1 lozenge Q1H PRN MT sore throat Last administered on 10/31/18 18:34; Admin Dose 1 LOZENGE; Start 10/27/18 at 21:30 Metolazone (Zaroxolyn) 2.5 mg BID@0530,1730 PO Last administered on 12/13/18 05:45; Admin Dose 2.5 MG; Start 11/01/18 at 05:30 Enoxaparin Sodium (Lovenox) 40 mg DAILY SC Last administered on 11/23/18 09:02; Admin Dose 40 MG; Start 11/02/18 at 09:00; Status Hold Ibuprofen (Motrin) 400 mg Q6H PRN PO MILD PAIN(1-3) OR TEMP>38C Last administered on 12/09/18 02:07; Admin Dose 400 MG; Start 11/07/18 at 12:20 Potassium Chloride (Klor-Con 20) 20 meq BID PO Last administered on 12/12/18 21:30; Admin Dose 20 MEQ; Start 11/11/18 at 09:00 Ondansetron HCl (Zofran Inj) 4 mg Q6H PRN IV NAUSEA AND/OR VOMITING Last administered on 11/19/18 20:21; Admin Dose 4 MG; Start 11/19/18 at 20:30 Bumetanide (Bumex) 0.5 mg DAILY PO Last administered on 12/12/18 08:19; Admin Dose 0.5 MG; Start 11/20/18 at 09:00 Diphenhydramine HCl (Benadryl) 25 mg Q8H PRN PO ITCHING Last administered on 12/11/18 21:42; Admin Dose 25 MG; Start 11/20/18 at 14:00 Bisacodyl (Dulcolax Supp) [address] CONSTIPATION; Start 11/20/18 at 17:30 Guaifenesin/ Codeine Phosphate (Robitussin Ac Liquid Cup) 10 ml Q4H PRN PO COUGH; Start 11/20/18 at 17:30 Magnesium Hydroxide (Milk Of Mag) 30 ml DAILY PRN PO CONSTIPATION Last administered on 11/24/18 08:45; Admin Dose 30 ML; Start 11/20/18 at 17:30 Simethicone (Mylicon) 80 mg Q8H PRN PO INDIGESTION; Start 11/20/18 at 23:30 Escitalopram Oxalate (Lexapro) 10 mg DAILY PO Last administered on 12/12/18 08:20; Admin Dose 10 MG; Start 11/24/18 at 19:00 Anastrozole (Arimidex) 1 mg DAILY PO Last administered on 12/12/18 08:21; Admin Dose 1 MG; Start 11/25/18 at 10:30 Carvedilol (Coreg) 3.125 mg BID PO Last administered on 12/12/18 21:32; Admin Dose 3.125 MG; Start 11/25/18 at 10:30 Docusate Sodium (Colace) 100 mg BID PO Last administered on 12/12/18 21:29; Admin Dose 100 MG; Start 11/25/18 at 10:30 Loratadine (Claritin) 10 mg DAILY PO Last administered on 12/12/18 08:19; Admin Dose 10 MG; Start 11/25/18 at 10:30 Pantoprazole (Protonix Tab) 40 mg AC BREAKFAST PO Last administered on 12/13/18 05:43; Admin Dose 40 MG; Start 11/25/18 at 10:30 Polyethylene Glycol (Miralax) 17 gm DAILY PO Last administered on 12/12/18 08:20; Admin Dose 17 GM; Start 11/25/18 at 10:30 Spironolactone (Aldactone) 50 mg DAILY PO Last administered on 12/12/18 08:19; Admin Dose 50 MG; Start 11/25/18 at 10:30 Diclofenac Sodium (Voltaren 1% Gel) 2 gm QID TP Last administered on 12/12/18 21:29; Admin Dose 2 GM; Start 11/27/18 at 22:00 Oxycodone HCl (Oxycontin) 20 mg BID PO Last administered on 12/12/18at 21:30; Admin Dose 20 MG; Start 12/01/18 at 09:00 Budesonide (Pulmicort (Neb)) 0.5 mg BID RESP THERAPY PRN HHN WHEEZING; Start 12/01/18 at 13:00 Zolpidem Tartrate (Ambien) 10 mg HS PRN PO INSOMNIA; Start 12/02/18 at 20:00 Ergocalciferol (Drisdol) 50,000 unit Q7D PO Last administered on 12/10/18at 16:21; Admin Dose 50,000 UNIT; Start 12/03/18 at 16:00 Neomycin/ Polymyxin/ Hydrocortisone (Cortisporin Otic Susp) 4 drop TID LEFT EAR Last administered on 12/12/18at 21:29; Admin Dose 4 DROP; Start 12/08/18 at 23:00; Stop 12/13/18 at 22:59 Ampicillin Sodium/ Sulbactam Sodium 100 ml @ 100 mls/hr Q6 IVPB Last administered on 12/13/18at 05:43; Admin Dose 100 MLS/HR; Start 12/12/18 at 17:00 TOMMIE JAMES Dec 13, 2018 08:47
[2018-12-13] MEDS: DOCUSATE SODIUM 100 MG CAP PO SCH ×2 (08:50→20:48)
[2018-12-13] MEDS: BUMETANIDE 0.5 MG TAB PO SCH (08:50)
[2018-12-13] MEDS: ESCITALOPRAM 10 MG TAB PO SCH (08:51)
[2018-12-13] MEDS: SPIRONOLACTONE 50 MG TAB PO SCH (08:51)
[2018-12-13] MEDS: oxyCODONE (CR) 20 MG TAB [oxyCONTIN] PO SCH ×2 (08:51→20:49)
[2018-12-13] MEDS: POTASSIUM CHLORIDE (SR) 20 MEQ TAB PO SCH ×2 (08:51→20:50)
[2018-12-13] MEDS: LORATADINE 10 MG TAB PO SCH (08:51)
[2018-12-13] MEDS: POLYETHYLENE GLYCOL 17 GM PACKET PO SCH (08:52)
[2018-12-13] MEDS: NEOMYC/POLYMYX/HC 10 ML OTIC SUSP LEFT EAR SCH ×3 (08:52→20:48)
[2018-12-13] MEDS: ANASTROZOLE 1 MG TAB PO SCH (08:53)
[2018-12-13] MEDS: DICLOFENAC SODIUM 1% GEL 100 GM TUBE TP SCH ×4 (08:58→20:48)
--- NOTE | 2018-12-13 13:12 | CONS ---
Consultation Date/Type/Reason Admit Date/Time October 21, 2018 at 17:39 Initial Consult Date 10/21/18 Type of Consult Cardiology Requesting Provider: RUSS JEROME MD Date/Time of Note DATE: 12/13/18 TIME: 13:12 24 HR Interval Summary Free Text/Dictation VS reviewed - stable Exam/Review of Systems Vital Signs Vitals Vital Signs Date Temp Pulse Resp B/P (MAP) Pulse Ox O2 O2 Flow FiO2 Time Delivery Rate 12/13/18 98.4 81 19 102/74 91 08:06 (83) 12/12/18 Room Air 15:21 Intake and Output 12/12/18 12/12/18 12/13/18 1515:00 23:00 07:00 IntakeIntake Total 400 ml 300 ml 100 ml BalanceBalance 400 ml 300 ml 100 ml Labs Result Diagram: 12/13/18 0938 12/13/18 0938 Results 24hrs Laboratory Tests Test 12/13/18 09:38 White Blood Count 4.7 #L Red Blood Count 3.51 L Hemoglobin 11.6 L Hematocrit 34.2 L Mean Corpuscular Volume 97.4 Mean Corpuscular Hemoglobin 33.0 Mean Corpuscular Hemoglobin Concent 33.9 Red Cell Distribution Width 13.2 Platelet Count 172 Mean Platelet Volume 9.2 Immature Granulocytes % 0.200 Neutrophils % 42.2 Lymphocytes % 38.7 Monocytes % 14.0 H Eosinophils % 3.8 Basophils % 1.1 Nucleated Red Blood Cells % 0.0 Immature Granulocytes # 0.010 Neutrophils # 2.0 Lymphocytes # 1.8 Monocytes # 0.7 Eosinophils # 0.2 Basophils # 0.1 Nucleated Red Blood Cells # 0.0 Sodium Level 138 Potassium Level 3.4 L Chloride Level 98 Carbon Dioxide Level 33 H Anion Gap 7 Blood Urea Nitrogen 32 H Creatinine 0.87 Est Glomerular Filtrat Rate mL/min > 60 Glucose Level 114 Calcium Level 8.2 L Medications Medications Current Medications Morphine Sulfate (morphine) 2 mg Q4H PRN IV SEVERE PAIN LEVEL 7-10 Last administered on 12/09/18at 22:33; Admin Dose 2 MG; Start 10/22/18 at 01:30 Phenol (Cepastat Lozenge) 1 lozenge Q1H PRN MT sore throat Last administered on 10/31/18at 18:34; Admin Dose 1 LOZENGE; Start 10/27/18 at 21:30 Metolazone (Zaroxolyn) 2.5 mg BID@5530,4910 PO Last administered on 12/13/18 05:45; Admin Dose 2.5 MG; Start 11/01/18 at 05:30 Enoxaparin Sodium (Lovenox) 40 mg DAILY SC Last administered on 11/23/18 09:02; Admin Dose 40 MG; Start 11/02/18 at 09:00; Status Hold Ibuprofen (Motrin) 400 mg Q6H PRN PO MILD PAIN(1-3) OR TEMP>38C Last administered on 12/09/18 02:07; Admin Dose 400 MG; Start 11/07/18 at 12:20 Potassium Chloride (Klor-Con 20) 20 meq BID PO Last administered on 12/13/18 08:51; Admin Dose 20 MEQ; Start 11/11/18 at 09:00 Ondansetron HCl (Zofran Inj) 4 mg Q6H PRN IV NAUSEA AND/OR VOMITING Last administered on 11/19/18at 20:21; Admin Dose 4 MG; Start 11/19/18 at 20:30 Bumetanide (Bumex) 0.5 mg DAILY PO Last administered on 12/13/18 08:50; Admin Dose 0.5 MG; Start 11/20/18 at 09:00 Diphenhydramine HCl (Benadryl) 25 mg Q8H PRN PO ITCHING Last administered on 12/11/18at 21:42; Admin Dose 25 MG; Start 11/20/18 at 14:00 Bisacodyl (Dulcolax Supp) 10 mg Q8H PRN [place] CONSTIPATION; Start 11/20/18 at 17:30 Guaifenesin/ Codeine Phosphate (Robitussin Ac Liquid Cup) 10 ml Q4H PRN PO COUGH; Start 11/20/18 at 17:30 Magnesium Hydroxide (Milk Of Mag) 30 ml DAILY PRN PO CONSTIPATION Last administered on 11/24/18at 08:45; Admin Dose 30 ML; Start 11/20/18 at 17:30 Simethicone (Mylicon) 80 mg Q8H PRN PO INDIGESTION; Start 11/20/18 at 23:30 Escitalopram Oxalate (Lexapro) 10 mg DAILY PO Last administered on 12/13/18 08:51; Admin Dose 10 MG; Start 11/24/18 at 19:00 Anastrozole (Arimidex) 1 mg DAILY PO Last administered on 12/13/18 08:53; Admin Dose 1 MG; Start 11/25/18 at 10:30 Carvedilol (Coreg) 3.125 mg BID PO Last administered on 12/13/18 08:52; Admin Dose 3.125 MG; Start 11/25/18 at 10:30 Docusate Sodium (Colace) 100 mg BID PO Last administered on 12/13/18 08:50; Admin Dose 100 MG; Start 11/25/18 at 10:30 Loratadine (Claritin) 10 mg DAILY PO Last administered on 12/13/18 08:51; Admin Dose 10 MG; Start 11/25/18 at 10:30 Pantoprazole (Protonix Tab) 40 mg AC BREAKFAST PO Last administered on 12/13/18 05:43; Admin Dose 40 MG; Start 11/25/18 at 10:30 Polyethylene Glycol (Miralax) 17 gm DAILY PO Last administered on 12/13/18 08:52; Admin Dose 17 GM; Start 11/25/18 at 10:30 Spironolactone (Aldactone) 50 mg DAILY PO Last administered on 12/13/18 08:51; Admin Dose 50 MG; Start 11/25/18 at 10:30 Diclofenac Sodium (Voltaren 1% Gel) 2 gm QID TP Last administered on 12/13/18 12:55; Admin Dose 2 GM; Start 11/27/18 at 22:00 Oxycodone HCl (Oxycontin) 20 mg BID PO Last administered on 12/13/18 08:51; Admin Dose 20 MG; Start 12/01/18 at 09:00 Budesonide (Pulmicort (Neb)) 0.5 mg BID RESP THERAPY PRN HHN WHEEZING; Start 12/01/18 at 13:00 Zolpidem Tartrate (Ambien) 10 mg HS PRN PO INSOMNIA; Start 12/02/18 at 20:00 Ergocalciferol (Drisdol) 50,000 unit Q7D PO Last administered on 12/10/18 16:21; Admin Dose 50,000 UNIT; Start 12/03/18 at 16:00 Neomycin/ Polymyxin/ Hydrocortisone (Cortisporin Otic Susp) 4 drop TID LEFT EAR Last administered on 12/13/18at 12:55; Admin Dose 4 DROP; Start 12/08/18 at 23:00; Stop 12/13/18 at 22:59 Ampicillin Sodium/ Sulbactam Sodium 100 ml @ 100 mls/hr Q6 IVPB Last administered on 12/13/18at 12:55; Admin Dose 100 MLS/HR; Start 12/12/18 at 17:00 EMILY NELSON MD Dec 13, 2018 13:12
--- NOTE | 2018-12-13 14:44 | CONS ---
Assessment/Plan Assessment/Plan Hospital Course (Demo Recall) Patient is alert feels better left ear pain improved no fevers overnight WBC 4.7 no shift no bands BUN 32 creatinine 0.87 Antimicrobials: Unasyn Indwelling: R chest Port-A-Cath 05/29/18 Physical examination: Obese well-developed middle-aged [place]-speaking woman who is alert in no distress. Head atraumatic normocephalic sclera nonicteric vehicle mucosa pink. Neck is supple chest rise symmetrical breath sounds diminished bases. Heart: S1-S2. Abdomen soft bowel sounds present extremities without cyanosis, left upper extremity with edema Assessment: 1. Bilateral mastoiditis, left more than the right 2. Metastatic breast cancer 3. Status post R hip arthroplasty due to lytic fracture 4. Status post recent fall with left wrist fracture that is being treated conservatively Plan: Patient is stable, continue antibiotics, follow oncology recommendations, anticipate discharge on oral Augmentin to complete 2 weeks Consultation Date/Type/Reason Admit Date/Time October 21, 2018 at 17:39 Initial Consult Date 11/21/18 Type of Consult id Requesting Provider: RUSS JEROME MD Date/Time of Note DATE: 12/13/18 TIME: 14:41 Exam/Review of Systems Exam Vitals Vital Signs Date Temp Pulse Resp B/P (MAP) Pulse Ox O2 O2 Flow FiO2 Time Delivery Rate 12/13/18 98.4 81 19 102/74 91 08:06 (83) 12/12/18 Room Air 15:21 Intake and Output 12/12/18 12/12/18 12/13/18 1515:00 23:00 07:00 IntakeIntake Total 400 ml 300 ml 100 ml BalanceBalance 400 ml 300 ml 100 ml Results Result Diagram: 12/13/1838 12/13/1838 Results 24hrs Laboratory Tests Test 12/13/18 09:38 White Blood Count 4.7 #L Red Blood Count 3.51 L Hemoglobin 11.6 L Hematocrit 34.2 L Mean Corpuscular Volume 97.4 Mean Corpuscular Hemoglobin 33.0 Mean Corpuscular Hemoglobin Concent 33.9 Red Cell Distribution Width 13.2 Platelet Count 172 Mean Platelet Volume 9.2 Immature Granulocytes % 0.200 Neutrophils % 42.2 Lymphocytes % 38.7 Monocytes % 14.0 H Eosinophils % 3.8 Basophils % 1.1 Nucleated Red Blood Cells % 0.0 Immature Granulocytes # 0.010 Neutrophils # 2.0 Lymphocytes # 1.8 Monocytes # 0.7 Eosinophils # 0.2 Basophils # 0.1 Nucleated Red Blood Cells # 0.0 Sodium Level 138 Potassium Level 3.4 L Chloride Level 98 Carbon Dioxide Level 33 H Anion Gap 7 Blood Urea Nitrogen 32 H Creatinine 0.87 Est Glomerular Filtrat Rate mL/min > 60 Glucose Level 114 Calcium Level 8.2 L Medications Medication Current Medications Morphine Sulfate (morphine) 2 mg Q4H PRN IV SEVERE PAIN LEVEL 7-10 Last administered on 12/09/18 22:33; Admin Dose 2 MG; Start 10/22/18 at 01:30 Phenol (Cepastat Lozenge) 1 lozenge Q1H PRN MT sore throat Last administered on 10/31/18 18:34; Admin Dose 1 LOZENGE; Start 10/27/18 at 21:30 Metolazone (Zaroxolyn) 2.5 mg BID@5130,5410 PO Last administered on 12/13/18 05:45; Admin Dose 2.5 MG; Start 11/01/18 at 05:30 Enoxaparin Sodium (Lovenox) 40 mg DAILY SC Last administered on 11/23/18 09:02; Admin Dose 40 MG; Start 11/02/18 at 09:00; Status Hold Ibuprofen (Motrin) 400 mg Q6H PRN PO MILD PAIN(1-3) OR TEMP>38C Last administered on 12/09/18 02:07; Admin Dose 400 MG; Start 11/07/18 at 12:20 Potassium Chloride (Klor-Con 20) 20 meq BID PO Last administered on 12/13/18 08:51; Admin Dose 20 MEQ; Start 11/11/18 at 09:00 Ondansetron HCl (Zofran Inj) 4 mg Q6H PRN IV NAUSEA AND/OR VOMITING Last administered on 11/19/18 20:21; Admin Dose 4 MG; Start 11/19/18 at 20:30 Bumetanide (Bumex) 0.5 mg DAILY PO Last administered on 12/13/18 08:50; Admin Dose 0.5 MG; Start 11/20/18 at 09:00 Diphenhydramine HCl (Benadryl) 25 mg Q8H PRN PO ITCHING Last administered on 12/11/18 21:42; Admin Dose 25 MG; Start 11/20/18 at 14:00 Bisacodyl (Dulcolax Supp) 10 mg Q8H PRN [place] CONSTIPATION; Start 11/20/18 at 17:30 Guaifenesin/ Codeine Phosphate (Robitussin Ac Liquid Cup) 10 ml Q4H PRN PO COUGH; Start 11/20/18 at 17:30 Magnesium Hydroxide (Milk Of Mag) 30 ml DAILY PRN PO CONSTIPATION Last administered on 11/24/18 08:45; Admin Dose 30 ML; Start 11/20/18 at 17:30 Simethicone (Mylicon) 80 mg Q8H PRN PO INDIGESTION; Start 11/20/18 at 23:30 Escitalopram Oxalate (Lexapro) 10 mg DAILY PO Last administered on 12/13/18 08:51; Admin Dose 10 MG; Start 11/24/18 at 19:00 Anastrozole (Arimidex) 1 mg DAILY PO Last administered on 12/13/18 08:53; Admin Dose 1 MG; Start 11/25/18 at 10:30 Carvedilol (Coreg) 3.125 mg BID PO Last administered on 12/13/18 08:52; Admin Dose 3.125 MG; Start 11/25/18 at 10:30 Docusate Sodium (Colace) 100 mg BID PO Last administered on 12/13/18 08:50; Admin Dose 100 MG; Start 11/25/18 at 10:30 Loratadine (Claritin) 10 mg DAILY PO Last administered on 12/13/18 08:51; Admin Dose 10 MG; Start 11/25/18 at 10:30 Pantoprazole (Protonix Tab) 40 mg AC BREAKFAST PO Last administered on 12/13/18 05:43; Admin Dose 40 MG; Start 11/25/18 at 10:30 Polyethylene Glycol (Miralax) 17 gm DAILY PO Last administered on 12/13/18 08:52; Admin Dose 17 GM; Start 11/25/18 at 10:30 Spironolactone (Aldactone) 50 mg DAILY PO Last administered on 12/13/18 08:51; Admin Dose 50 MG; Start 11/25/18 at 10:30 Diclofenac Sodium (Voltaren 1% Gel) 2 gm QID TP Last administered on 12/13/18at 12:55; Admin Dose 2 GM; Start 11/27/18 at 22:00 Oxycodone HCl (Oxycontin) 20 mg BID PO Last administered on 12/13/18at 08:51; Admin Dose 20 MG; Start 12/01/18 at 09:00 Budesonide (Pulmicort (Neb)) 0.5 mg BID RESP THERAPY PRN HHN WHEEZING; Start 12/01/18 at 13:00 Zolpidem Tartrate (Ambien) 10 mg HS PRN PO INSOMNIA; Start 12/02/18 at 20:00 Ergocalciferol (Drisdol) 50,000 unit Q7D PO Last administered on 12/10/18at 16:21; Admin Dose 50,000 UNIT; Start 12/03/18 at 16:00 Neomycin/ Polymyxin/ Hydrocortisone (Cortisporin Otic Susp) 4 drop TID LEFT EAR Last administered on 12/13/18at 12:55; Admin Dose 4 DROP; Start 12/08/18 at 23:00; Stop 12/13/18 at 22:59 Ampicillin Sodium/ Sulbactam Sodium 100 ml @ 100 mls/hr Q6 IVPB Last administered on 12/13/18at 12:55; Admin Dose 100 MLS/HR; Start 12/12/18 at 17:00 YUAN ROMERO NP Dec 13, 2018 14:44
[2018-12-13 19:40] VITALS: BP 110/65; PULSE 85; RESP 18
--- NOTE | 2018-12-13 21:46 | CONS ---
Assessment/Plan Assessment/Plan Hospital Course (Demo Recall) METASTATIC BREAST CANCER WITH PRIMARY ADENOCARCINOMA IN the left breast. MULTIPLE BONY METS, PULMONARY METS, LIVER METS CHEMO ON HOLD PT HAS A VERY GOOD RESPONSE TO CHEMO AND AI CONT AI FOR NOW CT ABD FOR RESTAGING 08.27.18, 12.04.18 - noted , stable POST aredia Leukopenia- post chemo, FLUCTUATING post NEUPOGEN monitor closely post Neutropenia with occasional fever and chills. - resolved Anemia chronic disease SOB PLEURAL EFFUSIONS, NEG CYTOLOGY POST thoracentesis Fluid overload diuretic cardiology F-UP Severe pain in the interscapular and lumbar sacral area most probably metastatic lesion possible femoral fracture. pathologic fracture of T9 with 60% of loss of height. Bony pain with multiple bony mets post XRT d/w dr Ocampo HYPOKALEMIA- REPLACED Obesity. Weight loss 60 pounds during the last 2 years COUGH, Upper respiratory infection pharyngitis with dry cough. POST ATB PMS. Myopia. Anxiety disorder. Claustrophobia. Posttraumatic stress disorder. Pain in the left forearm with a history of fracture of ulna and radius. Tachycardia Hypoxemia at night marginal improved after 2 L of nasal cannula oxygen. Deconditioning Pain syndrome. Today the most painful zone is in the right hip area. X-ray did not show any fractures. Hyponatremia- resolved Hypoalbuminemia Right sided cp after catheter insertion and correction less discomfort. Decreased edema both lower extremities with hypotension-improving Swelling of the left forearm-persist. Consultation Date/Type/Reason Admit Date/Time October 21, 2018 at 17:39 Initial Consult Date 10/21/18 Type of Consult [facility] Requesting Provider: RUSS JEROME MD Date/Time of Note DATE: 12/13/18 TIME: 21:46 Exam/Review of Systems Exam Vitals Vital Signs Date Temp Pulse Resp B/P (MAP) Pulse Ox O2 O2 Flow FiO2 Time Delivery Rate 12/13/18 98.1 85 18 110/65 93 19:40 (80) 12/12/18 Room Air 15:21 Intake and Output 12/12/18 12/12/18 12/13/18 1515:00 23:00 07:00 IntakeIntake Total 400 ml 300 ml 100 ml BalanceBalance 400 ml 300 ml 100 ml Exam Constitutional: alert, oriented, well developed, distress, frail; No non-verbal, No obese, No other Psych: nl mood/affect, anxiety, depression; No no complaints, No confusion, No suicidal, No other Head: normocephalic, atraumatic; No lacerations, No hematomas, No other Eyes: EOMI, nl lids, PERRL; No nl conjunctiva, No nl sclera, No icteric, No fundi, disc, No other ENMT: nl lips & teeth, tympanic membranes; No nl external ears & nose, No nl nasal mucosa & septum, No mucosa pink and moist, No intubated, No other Neck: jvd, bruits; No supple, No non-tender, No masses, No thyromegaly, No nuchal rigidity, No other Respiratory: clear to auscultation (Upper parts with pleural friction rub lower parts.), congested cough, diminished breath sounds; No normal air movement, No crackles/rales, No intercostal retraction, No labored breathing, No respirations, No tactile fremitus, No wheezing, No other Cardiovascular: regular rate and rhythm, edema, systolic murmur; No nl pulses, No bruits, No diastolic murmur, No gallop, No irregular rhythm, No jugular venous distention (JVD), No murmurs/extra sounds, No rub, No S3, No S4, No other Gastrointestinal: soft, nl liver, spleen, bowel sounds; No non-tender, No ascites, No distended, No firm, No hepatomegaly, No mass, No rebound or guarding, No splenomegaly, No surgical scars, No tender, No other Musculoskeletal: joint tenderness, muscle tone, muscle weakness; No nl extremities to inspection, No nl gait and stance, No range of motion, No spine non-tender, No swelling, No other Extremities: No normal pulses, No calf tenderness, No cyanosis, No clubbing, No edema, No pitting pedal edema, No palpable cord, No tenderness, No other Neurological: SOLUTION ADVISOR 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; No nl mental status, No nl speech, No nl strength, No confused, No DTR's symmetric, No focal weakness, No lethargic, No numbness, No reflexes, No unresponsive, No other Skin: No nl turgor, No rash or lesions, No diaphoresis, No ecchymosis, No laceration, No puncture, No other Lymph: No nl lymph nodes, No enlarged, No nontender, No other Results Result Diagram: 12/13/18 0938 12/13/18 0938 Results 24hrs Laboratory Tests Test 12/13/18 09:38 White Blood Count 4.7 #L Red Blood Count 3.51 L Hemoglobin 11.6 L Hematocrit 34.2 L Mean Corpuscular Volume 97.4 Mean Corpuscular Hemoglobin 33.0 Mean Corpuscular Hemoglobin Concent 33.9 Red Cell Distribution Width 13.2 Platelet Count 172 Mean Platelet Volume 9.2 Immature Granulocytes % 0.200 Neutrophils % 42.2 Lymphocytes % 38.7 Monocytes % 14.0 H Eosinophils % 3.8 Basophils % 1.1 Nucleated Red Blood Cells % 0.0 Immature Granulocytes # 0.010 Neutrophils # 2.0 Lymphocytes # 1.8 Monocytes # 0.7 Eosinophils # 0.2 Basophils # 0.1 Nucleated Red Blood Cells # 0.0 Sodium Level 138 Potassium Level 3.4 L Chloride Level 98 Carbon Dioxide Level 33 H Anion Gap 7 Blood Urea Nitrogen 32 H Creatinine 0.87 Est Glomerular Filtrat Rate mL/min > 60 Glucose Level 114 Calcium Level 8.2 L Medications Medication Current Medications Morphine Sulfate (morphine) 2 mg Q4H PRN IV SEVERE PAIN LEVEL 7-10 Last administered on 12/09/18 22:33; Admin Dose 2 MG; Start 10/22/18 at 01:30 Phenol (Cepastat Lozenge) 1 lozenge Q1H PRN [place] sore throat Last administered on 10/31/18 18:34; Admin Dose 1 LOZENGE; Start 10/27/18 at 21:30 Metolazone (Zaroxolyn) 2.5 mg BID@0530,1730 PO Last administered on 12/13/18at 17:42; Admin Dose 2.5 MG; Start 11/01/18 at 05:30 Enoxaparin Sodium (Lovenox) 40 mg DAILY SC Last administered on 11/23/18 09:02; Admin Dose 40 MG; Start 11/02/18 at 09:00; Status Hold Ibuprofen (Motrin) 400 mg Q6H PRN PO MILD PAIN(1-3) OR TEMP>38C Last administered on 12/09/18 02:07; Admin Dose 400 MG; Start 11/07/18 at 12:20 Potassium Chloride (Klor-Con 20) 20 meq BID PO Last administered on 12/13/18 20:50; Admin Dose 20 MEQ; Start 11/11/18 at 09:00 Ondansetron HCl (Zofran Inj) 4 mg Q6H PRN IV NAUSEA AND/OR VOMITING Last administered on 11/19/18 20:21; Admin Dose 4 MG; Start 11/19/18 at 20:30 Bumetanide (Bumex) 0.5 mg DAILY PO Last administered on 12/13/18 08:50; Admin Dose 0.5 MG; Start 11/20/18 at 09:00 Diphenhydramine HCl (Benadryl) 25 mg Q8H PRN PO ITCHING Last administered on 12/11/18 21:42; Admin Dose 25 MG; Start 11/20/18 at 14:00 Bisacodyl (Dulcolax Supp) 10 mg Q8H PRN [place] CONSTIPATION; Start 11/20/18 at 17:30 Guaifenesin/ Codeine Phosphate (Robitussin Ac Liquid Cup) 10 ml Q4H PRN PO C OUGH; Start 11/20/18 at 17:30 Magnesium Hydroxide (Milk Of Mag) 30 ml DAILY PRN PO CONSTIPATION Last administered on 11/24/18 08:45; Admin Dose 30 ML; Start 11/20/18 at 17:30 Simethicone (Mylicon) 80 mg Q8H PRN PO INDIGESTION; Start 11/20/18 at 23:30 Escitalopram Oxalate (Lexapro) 10 mg DAILY PO Last administered on 12/13/18 08:51; Admin Dose 10 MG; Start 11/24/18 at 19:00 Anastrozole (Arimidex) 1 mg DAILY PO Last administered on 12/13/18 08:53; Admin Dose 1 MG; Start 11/25/18 at 10:30 Carvedilol (Coreg) 3.125 mg BID PO Last administered on 12/13/18 20:50; Admin Dose 3.125 MG; Start 11/25/18 at 10:30 Docusate Sodium (Colace) 100 mg BID PO Last administered on 12/13/18 20:48; Admin Dose 100 MG; Start 11/25/18 at 10:30 Loratadine (Claritin) 10 mg DAILY PO Last administered on 12/13/18 08:51; Admin Dose 10 MG; Start 11/25/18 at 10:30 Pantoprazole (Protonix Tab) 40 mg AC BREAKFAST PO Last administered on 12/13/18 05:43; Admin Dose 40 MG; Start 11/25/18 at 10:30 Polyethylene Glycol (Miralax) 17 gm DAILY PO Last administered on 12/13/18 08:52; Admin Dose 17 GM; Start 11/25/18 at 10:30 Spironolactone (Aldactone) 50 mg DAILY PO Last administered on 12/13/18 08:51; Admin Dose 50 MG; Start 11/25/18 at 10:30 Diclofenac Sodium (Voltaren 1% Gel) 2 gm QID TP Last administered on 12/13/18 20:48; Admin Dose 2 GM; Start 11/27/18 at 22:00 Oxycodone HCl (Oxycontin) 20 mg BID PO Last administered on 12/13/18 20:49; Admin Dose 20 MG; Start 12/01/18 at 09:00 Budesonide (Pulmicort (Neb)) 0.5 mg BID RESP THERAPY PRN HHN WHEEZING; Start 12/01/18 at 13:00 Zolpidem Tartrate (Ambien) 10 mg HS PRN PO INSOMNIA; Start 12/02/18 at 20:00 Ergocalciferol (Drisdol) 50,000 unit Q7D PO Last administered on 12/10/18 16:21; Admin Dose 50,000 UNIT; Start 12/03/18 at 16:00 Neomycin/ Polymyxin/ Hydrocortisone (Cortisporin Otic Susp) 4 drop TID LEFT EAR Last administered on 12/13/18 20:48; Admin Dose 4 DROP; Start 12/08/18 at 23:00; Stop 12/13/18 at 22:59 Ampicillin Sodium/ Sulbactam Sodium 100 ml @ 100 mls/hr Q6 IVPB Last administered on 12/13/18 18:27; Admin Dose 100 MLS/HR; Start 12/12/18 at 17:00 DES DUNAWAY MD Dec 13, 2018 21:46
[2018-12-14] MEDS: AMPICILLIN/SULB 3 GM/NS (PMX) 100 ML IVPB SCH ×5 (00:03→23:48)
[2018-12-14 01:45] VITALS: BP 112/63; PULSE 92; RESP 20
[2018-12-14] MEDS: PANTOPRAZOLE (EC) 40 MG TAB PO SCH (05:01)
[2018-12-14] MEDS: METOLAZONE 2.5 MG TAB PO SCH ×2 (05:04→18:54)
[2018-12-14 08:26] VITALS: BP 129/62; PULSE 83; RESP 18
[2018-12-14] MEDS: ESCITALOPRAM 10 MG TAB PO SCH (09:24)
[2018-12-14] MEDS: BUMETANIDE 0.5 MG TAB PO SCH (09:24)
[2018-12-14] MEDS: SPIRONOLACTONE 50 MG TAB PO SCH (09:24)
[2018-12-14] MEDS: POTASSIUM CHLORIDE (SR) 20 MEQ TAB PO SCH ×2 (09:24→20:37)
[2018-12-14] MEDS: LORATADINE 10 MG TAB PO SCH (09:25)
[2018-12-14] MEDS: POLYETHYLENE GLYCOL 17 GM PACKET PO SCH (09:25)
[2018-12-14] MEDS: DOCUSATE SODIUM 100 MG CAP PO SCH ×2 (09:25→20:37)
[2018-12-14] MEDS: DICLOFENAC SODIUM 1% GEL 100 GM TUBE TP SCH ×4 (09:26→20:38)
[2018-12-14] MEDS: ANASTROZOLE 1 MG TAB PO SCH (09:31)
[2018-12-14] MEDS: oxyCODONE (CR) 20 MG TAB [oxyCONTIN] PO SCH ×2 (09:31→20:37)
--- NOTE | 2018-12-14 10:48 | PN ---
Date/Time of Note Date/Time of Note DATE: 12/14/18 TIME: 10:48 Assessment/Plan VTE Prophylaxis Risk score (from Ns)>0 risk: 11 SCD applied (from Ns): Yes Pharmacological prophylaxis: LMWH Lines/Catheters IV [facility]from [facility] PORT[facility]A-CATH Urinary Cath still in place: No Assessment/Plan Hospital Course -Metastatic left breast cancer with pulmonary, liver, and bone involvement. S/p chemo which is on hold now. Continued on Arimidex. Dr. Fernández is following in oncology consultation. -Recurrent pleural effusions requiring bilateral thoracentesis -Diastolic congestive heart failure, patient is currently on Aldactone, Bumex, and Coreg. Dr. Hurtado is following in cardiology consultation. -Acute on chronic pain, continue OxyContin twice daily and morphine as needed -Status post R hip arthroplasty due to lytic fracture -Status post recent fall with left wrist fracture that is being treated conservatively -Left lower extremity lymphedema -Obesity Result Diagram: 12/14/18 0453 12/14/18 0453 Results 24hrs Laboratory Tests Test 12/14/18 04:53 White Blood Count 4.4 L Red Blood Count 3.34 L Hemoglobin 11.1 L Hematocrit 32.5 L Mean Corpuscular Volume 97.3 Mean Corpuscular Hemoglobin 33.2 H Mean Corpuscular Hemoglobin Concent 34.2 Red Cell Distribution Width 13.2 Platelet Count 168 Mean Platelet Volume 9.4 Immature Granulocytes % 0.200 Neutrophils % 36.2 L Lymphocytes % 44.2 Monocytes % 13.8 H Eosinophils % 4.5 Basophils % 1.1 Nucleated Red Blood Cells % 0.0 Immature Granulocytes # 0.010 Neutrophils # 1.6 Lymphocytes # 2.0 Monocytes # 0.6 Eosinophils # 0.2 Basophils # 0.1 Nucleated Red Blood Cells # 0.0 Sodium Level 139 Potassium Level 3.8 Chloride Level 99 Carbon Dioxide Level 34 H Anion Gap 6 Blood Urea Nitrogen 33 H Creatinine 0.80 Est Glomerular Filtrat Rate mL/min > 60 Glucose Level 116 Calcium Level 8.3 L Subjective 24 Hr Interval Summary Free Text/Dictation Patient has no complaints Exam/Review of Systems Exam Vitals Vital Signs Date Temp Pulse Resp B/P (MAP) Pulse Ox O2 O2 Flow FiO2 Time Delivery Rate 12/14/18 98.3 83 18 129/62 99 Room Air 08:26 (84) Intake and Output 12/13/18 12/13/18 12/14/18 1515:00 23:00 07:00 IntakeIntake Total 540 ml 740 ml BalanceBalance 540 ml 740 ml Constitutional: well developed Head: normocephalic, atraumatic Neck: supple Respiratory: clear to auscultation Cardiovascular: regular rate and rhythm Gastrointestinal: soft, non-tender Extremities: normal pulses Results Results 24hrs Laboratory Tests Test 12/14/18 04:53 White Blood Count 4.4 L Red Blood Count 3.34 L Hemoglobin 11.1 L Hematocrit 32.5 L Mean Corpuscular Volume 97.3 Mean Corpuscular Hemoglobin 33.2 H Mean Corpuscular Hemoglobin Concent 34.2 Red Cell Distribution Width 13.2 Platelet Count 168 Mean Platelet Volume 9.4 Immature Granulocytes % 0.200 Neutrophils % 36.2 L Lymphocytes % 44.2 Monocytes % 13.8 H Eosinophils % 4.5 Basophils % 1.1 Nucleated Red Blood Cells % 0.0 Immature Granulocytes # 0.010 Neutrophils # 1.6 Lymphocytes # 2.0 Monocytes # 0.6 Eosinophils # 0.2 Basophils # 0.1 Nucleated Red Blood Cells # 0.0 Sodium Level 139 Potassium Level 3.8 Chloride Level 99 Carbon Dioxide Level 34 H Anion Gap 6 Blood Urea Nitrogen 33 H Creatinine 0.80 Est Glomerular Filtrat Rate mL/min > 60 Glucose Level 116 Calcium Level 8.3 L Medications Medication Current Medications Morphine Sulfate (morphine) 2 mg Q4H PRN IV SEVERE PAIN LEVEL 7-10 Last administered on 12/09/18at 22:33; Admin Dose 2 MG; Start 10/22/18 at 01:30 Phenol (Cepastat Lozenge) 1 lozenge Q1H PRN MT sore throat Last administered on 10/31/18at 18:34; Admin Dose 1 LOZENGE; Start 10/27/18 at 21:30 Metolazone (Zaroxolyn) 2.5 mg BID@0530,1730 PO Last administered on 12/14/18at 05:04; Admin Dose 2.5 MG; Start 11/01/18 at 05:30 Enoxaparin Sodium (Lovenox) 40 mg DAILY SC Last administered on 11/23/18at 09:02; Admin Dose 40 MG; Start 11/02/18 at 09:00; Status Hold Ibuprofen (Motrin) 400 mg Q6H PRN PO MILD PAIN(1-3) OR TEMP>38C Last administered on 12/09/18 02:07; Admin Dose 400 MG; Start 11/07/18 at 12:20 Potassium Chloride (Klor-Con 20) 20 meq BID PO Last administered on 12/14/18 09:24; Admin Dose 20 MEQ; Start 11/11/18 at 09:00 Ondansetron HCl (Zofran Inj) 4 mg Q6H PRN IV NAUSEA AND/OR VOMITING Last administered on 11/19/18 20:21; Admin Dose 4 MG; Start 11/19/18 at 20:30 Bumetanide (Bumex) 0.5 mg DAILY PO Last administered on 12/14/18 09:24; Admin Dose 0.5 MG; Start 11/20/18 at 09:00 Diphenhydramine HCl (Benadryl) 25 mg Q8H PRN PO ITCHING Last administered on 12/11/18 21:42; Admin Dose 25 MG; Start 11/20/18 at 14:00 Bisacodyl (Dulcolax Supp) 10 mg Q8H PRN [place] CONSTIPATION; Start 11/20/18 at 17:30 Guaifenesin/ Codeine Phosphate (Robitussin Ac Liquid Cup) 10 ml Q4H PRN PO COUGH; Start 11/20/18 at 17:30 Magnesium Hydroxide (Milk Of Mag) 30 ml DAILY PRN PO CONSTIPATION Last administered on 11/24/18 08:45; Admin Dose 30 ML; Start 11/20/18 at 17:30 Simethicone (Mylicon) 80 mg Q8H PRN PO INDIGESTION; Start 11/20/18 at 23:30 Escitalopram Oxalate (Lexapro) 10 mg DAILY PO Last administered on 12/14/18 09:24; Admin Dose 10 MG; Start 11/24/18 at 19:00 Anastrozole (Arimidex) 1 mg DAILY PO Last administered on 12/14/18 09:31; Admin Dose 1 MG; Start 11/25/18 at 10:30 Carvedilol (Coreg) 3.125 mg BID PO Last administered on 12/14/18 09:25; Admin Dose 3.125 MG; Start 11/25/18 at 10:30 Docusate Sodium (Colace) 100 mg BID PO Last administered on 12/14/18 09:25; Admin Dose 100 MG; Start 11/25/18 at 10:30 Loratadine (Claritin) 10 mg DAILY PO Last administered on 12/14/18 09:25; Admin Dose 10 MG; Start 11/25/18 at 10:30 Pantoprazole (Protonix Tab) 40 mg AC BREAKFAST PO Last administered on 11/17 05:01; Admin Dose 40 MG; Start 11/25/18 at 10:30 Polyethylene Glycol (Miralax) 17 gm DAILY PO Last administered on 12/14/18 09:25; Admin Dose 17 GM; Start 11/25/18 at 10:30 Spironolactone (Aldactone) 50 mg DAILY PO Last administered on 12/14/18 09:24; Admin Dose 50 MG; Start 11/25/18 at 10:30 Diclofenac Sodium (Voltaren 1% Gel) 2 gm QID TP Last administered on 12/14/18 09:26; Admin Dose 2 GM; Start 11/27/18 at 22:00 Oxycodone HCl (Oxycontin) 20 mg BID PO Last administered on 12/14/18 09:31; Admin Dose 20 MG; Start 12/01/18 at 09:00 Budesonide (Pulmicort (Neb)) 0.5 mg BID RESP THERAPY PRN HHN WHEEZING; Start 12/01/18 at 13:00 Zolpidem Tartrate (Ambien) 10 mg HS PRN PO INSOMNIA; Start 12/02/18 at 20:00 Ergocalciferol (Drisdol) 50,000 unit Q7D PO Last administered on 12/10/18 16:21; Admin Dose 50,000 UNIT; Start 12/03/18 at 16:00 Ampicillin Sodium/ Sulbactam Sodium 100 ml @ 100 mls/hr Q6 IVPB Last administered on 12/14/18 05:01; Admin Dose 100 MLS/HR; Start 12/12/18 at 17:00 LETITIA LOPEZ Dec 14, 2018 10:48
[2018-12-14 14:29] VITALS: BP 102/67; PULSE 75; RESP 18
--- NOTE | 2018-12-14 14:51 | CONS ---
Consultation Date/Type/Reason Admit Date/Time October 21, 2018 at 17:39 Initial Consult Date 10/21/18 Type of Consult Cardiology Requesting Provider: RUSS JEROME MD Date/Time of Note DATE: 12/14/18 TIME: 14:51 24 HR Interval Summary Free Text/Dictation VS stable Exam/Review of Systems Vital Signs Vitals Vital Signs Date Temp Pulse Resp B/P (MAP) Pulse Ox O2 O2 Flow FiO2 Time Delivery Rate 12/14/18 98.3 75 18 102/67 98 14:29 (79) 12/14/18 Room Air 08:26 Intake and Output 12/13/18 12/13/18 12/14/18 1414:59 22:59 06:59 IntakeIntake Total 540 ml 740 ml BalanceBalance 540 ml 740 ml Labs Result Diagram: 12/14/18 0453 12/14/18 0453 Results 24hrs Laboratory Tests Test 12/14/18 04:53 White Blood Count 4.4 L Red Blood Count 3.34 L Hemoglobin 11.1 L Hematocrit 32.5 L Mean Corpuscular Volume 97.3 Mean Corpuscular Hemoglobin 33.2 H Mean Corpuscular Hemoglobin Concent 34.2 Red Cell Distribution Width 13.2 Platelet Count 168 Mean Platelet Volume 9.4 Immature Granulocytes % 0.200 Neutrophils % 36.2 L Lymphocytes % 44.2 Monocytes % 13.8 H Eosinophils % 4.5 Basophils % 1.1 Nucleated Red Blood Cells % 0.0 Immature Granulocytes # 0.010 Neutrophils # 1.6 Lymphocytes # 2.0 Monocytes # 0.6 Eosinophils # 0.2 Basophils # 0.1 Nucleated Red Blood Cells # 0.0 Sodium Level 139 Potassium Level 3.8 Chloride Level 99 Carbon Dioxide Level 34 H Anion Gap 6 Blood Urea Nitrogen 33 H Creatinine 0.80 Est Glomerular Filtrat Rate mL/min > 60 Glucose Level 116 Calcium Level 8.3 L Medications Medications Current Medications Morphine Sulfate (morphine) 2 mg Q4H PRN IV SEVERE PAIN LEVEL 7-10 Last admin istered on 12/09/18at 22:33; Admin Dose 2 MG; Start 10/22/18 at 01:30 Phenol (Cepastat Lozenge) 1 lozenge Q1H PRN MT sore throat Last administered on 10/31/18at 18:34; Admin Dose 1 LOZENGE; Start 10/27/18 at 21:30 Metolazone (Zaroxolyn) 2.5 mg BID@5408,9940 PO Last administered on 12/14/18 05:04; Admin Dose 2.5 MG; Start 11/01/18 at 05:30 Enoxaparin Sodium (Lovenox) 40 mg DAILY SC Last administered on 11/23/18 09:02; Admin Dose 40 MG; Start 11/02/18 at 09:00; Status Hold Ibuprofen (Motrin) 400 mg Q6H PRN PO MILD PAIN(1-3) OR TEMP>38C Last administered on 12/09/18 02:07; Admin Dose 400 MG; Start 11/07/18 at 12:20 Potassium Chloride (Klor-Con 20) 20 meq BID PO Last administered on 12/14/18 09:24; Admin Dose 20 MEQ; Start 11/11/18 at 09:00 Ondansetron HCl (Zofran Inj) 4 mg Q6H PRN IV NAUSEA AND/OR VOMITING Last administered on 11/19/18at 20:21; Admin Dose 4 MG; Start 11/19/18 at 20:30 Bumetanide (Bumex) 0.5 mg DAILY PO Last administered on 12/14/18 09:24; Admin Dose 0.5 MG; Start 11/20/18 at 09:00 Diphenhydramine HCl (Benadryl) 25 mg Q8H PRN PO ITCHING Last administered on 12/11/18at 21:42; Admin Dose 25 MG; Start 11/20/18 at 14:00 Bisacodyl (Dulcolax Supp) 10 mg Q8H PRN [place] CONSTIPATION; Start 11/20/18 at 17:30 Guaifenesin/ Codeine Phosphate (Robitussin Ac Liquid Cup) 10 ml Q4H PRN PO COUGH; Start 11/20/18 at 17:30 Magnesium Hydroxide (Milk Of Mag) 30 ml DAILY PRN PO CONSTIPATION Last administered on 11/24/18at 08:45; Admin Dose 30 ML; Start 11/20/18 at 17:30 Simethicone (Mylicon) 80 mg Q8H PRN PO INDIGESTION; Start 11/20/18 at 23:30 Escitalopram Oxalate (Lexapro) 10 mg DAILY PO Last administered on 12/14/18 09:24; Admin Dose 10 MG; Start 11/24/18 at 19:00 Anastrozole (Arimidex) 1 mg DAILY PO Last administered on 12/14/18 09:31; Admin Dose 1 MG; Start 11/25/18 at 10:30 Carvedilol (Coreg) 3.125 mg BID PO Last administered on 12/14/18 09:25; Admin Dose 3.125 MG; Start 11/25/18 at 10:30 Docusate Sodium (Colace) 100 mg BID PO Last administered on 12/14/18 09:25; A dmin Dose 100 MG; Start 11/25/18 at 10:30 Loratadine (Claritin) 10 mg DAILY PO Last administered on 12/14/18 09:25; Admin Dose 10 MG; Start 11/25/18 at 10:30 Pantoprazole (Protonix Tab) 40 mg AC BREAKFAST PO Last administered on 12/14/18 05:01; Admin Dose 40 MG; Start 11/25/18 at 10:30 Polyethylene Glycol (Miralax) 17 gm DAILY PO Last administered on 12/14/18 09:25; Admin Dose 17 GM; Start 11/25/18 at 10:30 Spironolactone (Aldactone) 50 mg DAILY PO Last administered on 12/14/18 09:24; Admin Dose 50 MG; Start 11/25/18 at 10:30 Diclofenac Sodium (Voltaren 1% Gel) 2 gm QID TP Last administered on 12/14/18 12:54; Admin Dose 2 GM; Start 11/27/18 at 22:00 Oxycodone HCl (Oxycontin) 20 mg BID PO Last administered on 12/14/18 09:31; Admin Dose 20 MG; Start 12/01/18 at 09:00 Budesonide (Pulmicort (Neb)) 0.5 mg BID RESP THERAPY PRN HHN WHEEZING; Start 12/01/18 at 13:00 Zolpidem Tartrate (Ambien) 10 mg HS PRN PO INSOMNIA; Start 12/02/18 at 20:00 Ergocalciferol (Drisdol) 50,000 unit Q7D PO Last administered on 12/10/18 16:21; Admin Dose 50,000 UNIT; Start 12/03/18 at 16:00 Ampicillin Sodium/ Sulbactam Sodium 100 ml @ 100 mls/hr Q6 IVPB Last administered on 12/14/18at 12:54; Admin Dose 100 MLS/HR; Start 12/12/18 at 17:00 EMILY NELSON MD Dec 14, 2018 14:51
--- NOTE | 2018-12-14 15:15 | CONS ---
Assessment/Plan Assessment/Plan Hospital Course (Demo Recall) METASTATIC BREAST CANCER WITH PRIMARY ADENOCARCINOMA IN the left breast. MULTIPLE BONY METS, PULMONARY METS, LIVER METS CHEMO ON HOLD PT HAS A VERY GOOD RESPONSE TO CHEMO AND AI CONT AI FOR NOW CT ABD FOR RESTAGING 08.27.18, 12.04.18 - noted , stable POST aredia Leukopenia- post chemo, FLUCTUATING post NEUPOGEN monitor closely post Neutropenia with occasional fever and chills. - resolved Anemia chronic disease SOB PLEURAL EFFUSIONS, NEG CYTOLOGY POST thoracentesis Fluid overload diuretic cardiology F-UP Severe pain in the interscapular and lumbar sacral area most probably metastatic lesion possible femoral fracture. pathologic fracture of T9 with 60% of loss of height. Bony pain with multiple bony mets post XRT d/w dr Ocampo HYPOKALEMIA- REPLACED Obesity. Weight loss 60 pounds during the last 2 years COUGH, Upper respiratory infection pharyngitis with dry cough. POST ATB PMS. Myopia. Anxiety disorder. Claustrophobia. Posttraumatic stress disorder. Pain in the left forearm with a history of fracture of ulna and radius. Tachycardia Hypoxemia at night marginal improved after 2 L of nasal cannula oxygen. Deconditioning Pain syndrome. Today the most painful zone is in the right hip area. X-ray did not show any fractures. Hyponatremia- resolved Hypoalbuminemia Right sided cp after catheter insertion and correction less discomfort. Decreased edema both lower extremities with hypotension-improving Swelling of the left forearm-persist. Consultation Date/Type/Reason Admit Date/Time October 21, 2018 at 17:39 Initial Consult Date 10/21/18 Type of Consult [facility] Requesting Provider: RUSS JEROME MD Date/Time of Note DATE: 12/14/18 TIME: 15:15 Exam/Review of Systems Exam Vitals Vital Signs Date Temp Pulse Resp B/P (MAP) Pulse Ox O2 O2 Flow FiO2 Time Delivery Rate 12/14/18 98.3 75 18 102/67 98 14:29 (79) 12/14/18 Room Air 08:26 Intake and Output 12/13/18 12/13/18 12/14/18 1515:00 23:00 07:00 IntakeIntake Total 540 ml 740 ml BalanceBalance 540 ml 740 ml Exam Constitutional: alert, oriented, well developed, distress, frail; No non-verbal, No obese, No other Psych: nl mood/affect, anxiety, depression; No no complaints, No confusion, No suicidal, No other Head: normocephalic, atraumatic; No lacerations, No hematomas, No other Eyes: EOMI, nl lids, PERRL; No nl conjunctiva, No nl sclera, No icteric, No fundi, disc, No other ENMT: nl lips & teeth, tympanic membranes; No nl external ears & nose, No nl nasal mucosa & septum, No mucosa pink and moist, No intubated, No other Neck: jvd, bruits; No supple, No non-tender, No masses, No thyromegaly, No nuchal rigidity, No other Respiratory: clear to auscultation (Upper parts with pleural friction rub lower parts.), congested cough, diminished breath sounds; No normal air movement, No crackles/rales, No intercostal retraction, No labored breathing, No respirations, No tactile fremitus, No wheezing, No other Cardiovascular: regular rate and rhythm, edema, systolic murmur; No nl pulses, No bruits, No diastolic murmur, No gallop, No irregular rhythm, No jugular venous distention (JVD), No murmurs/extra sounds, No rub, No S3, No S4, No other Gastrointestinal: soft, nl liver, spleen, bowel sounds; No non-tender, No ascites, No distended, No firm, No hepatomegaly, No mass, No rebound or guarding, No splenomegaly, No surgical scars, No tender, No other Musculoskeletal: joint tenderness, muscle tone, muscle weakness; No nl extremities to inspection, No nl gait and stance, No range of motion, No spine non-tender, No swelling, No other Extremities: No normal pulses, No calf tenderness, No cyanosis, No clubbing, No edema, No pitting pedal edema, No palpable cord, No tenderness, No other Neurological: CARE DIRECTOR 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; No nl mental status, No nl speech, No nl strength, No confused, No DTR's symmetric, No focal weakness, No lethargic, No numbness, No reflexes, No unres ponsive, No other Skin: No nl turgor, No rash or lesions, No diaphoresis, No ecchymosis, No laceration, No puncture, No other Lymph: No nl lymph nodes, No enlarged, No nontender, No other Results Result Diagram: 12/14/18 0453 12/14/18 0453 Results 24hrs Laboratory Tests Test 12/14/18 04:53 White Blood Count 4.4 L Red Blood Count 3.34 L Hemoglobin 11.1 L Hematocrit 32.5 L Mean Corpuscular Volume 97.3 Mean Corpuscular Hemoglobin 33.2 H Mean Corpuscular Hemoglobin Concent 34.2 Red Cell Distribution Width 13.2 Platelet Count 168 Mean Platelet Volume 9.4 Immature Granulocytes % 0.200 Neutrophils % 36.2 L Lymphocytes % 44.2 Monocytes % 13.8 H Eosinophils % 4.5 Basophils % 1.1 Nucleated Red Blood Cells % 0.0 Immature Granulocytes # 0.010 Neutrophils # 1.6 Lymphocytes # 2.0 Monocytes # 0.6 Eosinophils # 0.2 Basophils # 0.1 Nucleated Red Blood Cells # 0.0 Sodium Level 139 Potassium Level 3.8 Chloride Level 99 Carbon Dioxide Level 34 H Anion Gap 6 Blood Urea Nitrogen 33 H Creatinine 0.80 Est Glomerular Filtrat Rate mL/min > 60 Glucose Level 116 Calcium Level 8.3 L Medications Medication Current Medications Morphine Sulfate (morphine) 2 mg Q4H PRN IV SEVERE PAIN LEVEL 7-10 Last administered on 12/09/18at 22:33; Admin Dose 2 MG; Start 10/22/18 at 01:30 Phenol (Cepastat Lozenge) 1 lozenge Q1H PRN MT sore throat Last administered on 10/31/18at 18:34; Admin Dose 1 LOZENGE; Start 10/27/18 at 21:30 Metolazone (Zaroxolyn) 2.5 mg BID@1030,2270 PO Last administered on 12/14/18at 05:04; Admin Dose 2.5 MG; Start 11/01/18 at 05:30 Enoxaparin Sodium (Lovenox) 40 mg DAILY SC Last administered on 11/23/18 09:02; Admin Dose 40 MG; Start 11/02/18 at 09:00; Status Hold Ibuprofen (Motrin) 400 mg Q6H PRN PO MILD PAIN(1-3) OR TEMP>38C Last administered on 12/09/18 02:07; Admin Dose 400 MG; Start 11/07/18 at 12:20 Potassium Chloride (Klor-Con 20) 20 meq BID PO Last administered on 12/14/18 09:24; Admin Dose 20 MEQ; Start 11/11/18 at 09:00 Ondansetron HCl (Zofran Inj) 4 mg Q6H PRN IV NAUSEA AND/OR VOMITING Last administered on 11/19/18 20:21; Admin Dose 4 MG; Start 11/19/18 at 20:30 Bumetanide (Bumex) 0.5 mg DAILY PO Last administered on 12/14/18 09:24; Admin Dose 0.5 MG; Start 11/20/18 at 09:00 Diphenhydramine HCl (Benadryl) 25 mg Q8H PRN PO ITCHING Last administered on 12/11/18 21:42; Admin Dose 25 MG; Start 11/20/18 at 14:00 Bisacodyl (Dulcolax Supp) 10 mg Q8H PRN [place] CONSTIPATION; Start 11/20/18 at 17:30 Guaifenesin/ Codeine Phosphate (Robitussin Ac Liquid Cup) 10 ml Q4H PRN PO COUGH; Start 11/20/18 at 17:30 Magnesium Hydroxide (Milk Of Mag) 30 ml DAILY PRN PO CONSTIPATION Last administered on 11/24/18 08:45; Admin Dose 30 ML; Start 11/20/18 at 17:30 Simethicone (Mylicon) 80 mg Q8H PRN PO INDIGESTION; Start 11/20/18 at 23:30 Escitalopram Oxalate (Lexapro) 10 mg DAILY PO Last administered on 12/14/18 09:24; Admin Dose 10 MG; Start 11/24/18 at 19:00 Anastrozole (Arimidex) 1 mg DAILY PO Last administered on 12/14/18 09:31; Admin Dose 1 MG; Start 11/25/18 at 10:30 Carvedilol (Coreg) 3.125 mg BID PO Last administered on 12/14/18 09:25; Admin Dose 3.125 MG; Start 11/25/18 at 10:30 Docusate Sodium (Colace) 100 mg BID PO Last administered on 12/14/18 09:25; Admin Dose 100 MG; Start 11/25/18 at 10:30 Loratadine (Claritin) 10 mg DAILY PO Last administered on 12/14/18 09:25; Adm in Dose 10 MG; Start 11/25/18 at 10:30 Pantoprazole (Protonix Tab) 40 mg AC BREAKFAST PO Last administered on 12/14/18 05:01; Admin Dose 40 MG; Start 11/25/18 at 10:30 Polyethylene Glycol (Miralax) 17 gm DAILY PO Last administered on 12/14/18 09:25; Admin Dose 17 GM; Start 11/25/18 at 10:30 Spironolactone (Aldactone) 50 mg DAILY PO Last administered on 12/14/18 09:24; Admin Dose 50 MG; Start 11/25/18 at 10:30 Diclofenac Sodium (Voltaren 1% Gel) 2 gm QID TP Last administered on 12/14/18 12:54; Admin Dose 2 GM; Start 11/27/18 at 22:00 Oxycodone HCl (Oxycontin) 20 mg BID PO Last administered on 12/14/18 09:31; Admin Dose 20 MG; Start 12/01/18 at 09:00 Budesonide (Pulmicort (Neb)) 0.5 mg BID RESP THERAPY PRN HHN WHEEZING; Start 12/01/18 at 13:00 Zolpidem Tartrate (Ambien) 10 mg HS PRN PO INSOMNIA; Start 12/02/18 at 20:00 Ergocalciferol (Drisdol) 50,000 unit Q7D PO Last administered on 12/10/18 16:21; Admin Dose 50,000 UNIT; Start 12/03/18 at 16:00 Ampicillin Sodium/ Sulbactam Sodium 100 ml @ 100 mls/hr Q6 IVPB Last administered on 12/14/18 12:54; Admin Dose 100 MLS/HR; Start 12/12/18 at 17:00 DES DUNAWAY MD Dec 14, 2018 15:15
--- NOTE | 2018-12-14 16:20 | CONS ---
Consultation Date/Type/Reason Admit Date/Time October 21, 2018 at 17:39 Initial Consult Date SUBJECTIVE: Patient is awake, alert, and looks comfortable, resting in bed. VS: stable T: 98.3 LABS: Reviewed. WBC- 4.4 Antimicrobials: Unasyn Indwelling: R chest Port-A-Cath 05/29/18 Physical examination: GEN: Obese well-developed middle-aged [place]ic-speaking woman, who is alert in no distress. HENT: Head atraumatic normocephalic, sclera nonicteric vehicle mucosa pink. Neck is supple PULM: chest rise symmetrical breath sounds diminished bases. Heart: S1-S2. Abdomen: soft, bowel sounds present Extremities without cyanosis, left upper extremity with edema Assessment: 1. Bilateral mastoiditis, left more than the right 2. Metastatic breast cancer 3. Status post R hip arthroplasty due to lytic fracture 4. Status post recent fall with left wrist fracture that is being treated conservatively Plan: Patient is stable. Continue current antibiotics. Oncology recommendations noted. Anticipate discharge on oral Augmentin to complete 2 weeks. Requesting Provider: RUSS JEROME MD Date/Time of Note DATE: 12/14/18 TIME: 16:17 Exam/Review of Systems Exam Vitals Vital Signs Date Temp Pulse Resp B/P (MAP) Pulse Ox O2 O2 Flow FiO2 Time Delivery Rate 12/14/18 98.3 75 18 102/67 98 14:29 (79) 12/14/18 Room Air 08:26 Intake and Output 12/13/18 12/13/18 12/14/18 1515:00 23:00 07:00 IntakeIntake Total 540 ml 740 ml BalanceBalance 540 ml 740 ml Results Result Diagram: 12/14/18 0453 12/14/18 0453 Results 24hrs Laboratory Tests Test 12/14/18 04:53 White Blood Count 4.4 L Red Blood Count 3.34 L Hemoglobin 11.1 L Hematocrit 32.5 L Mean Corpuscular Volume 97.3 Mean Corpuscular Hemoglobin 33.2 H Mean Corpuscular Hemoglobin Concent 34.2 Red Cell Distribution Width 13.2 Platelet Count 168 Mean Platelet Volume 9.4 Immature Granulocytes % 0.200 Neutrophils % 36.2 L Lymphocytes % 44.2 Monocytes % 13.8 H Eosinophils % 4.5 Basophils % 1.1 Nucleated Red Blood Cells % 0.0 Immature Granulocytes # 0.010 Neutrophils # 1.6 Lymphocytes # 2.0 Monocytes # 0.6 Eosinophils # 0.2 Basophils # 0.1 Nucleated Red Blood Cells # 0.0 Sodium Level 139 Potassium Level 3.8 Chloride Level 99 Carbon Dioxide Level 34 H Anion Gap 6 Blood Urea Nitrogen 33 H Creatinine 0.80 Est Glomerular Filtrat Rate mL/min > 60 Glucose Level 116 Calcium Level 8.3 L Medications Medication Current Medications Morphine Sulfate (morphine) 2 mg Q4H PRN IV SEVERE PAIN LEVEL 7-10 Last administered on 12/09/18 22:33; Admin Dose 2 MG; Start 10/22/18 at 01:30 Phenol (Cepastat Lozenge) 1 lozenge Q1H PRN MT sore throat Last administered on 10/31/18 18:34; Admin Dose 1 LOZENGE; Start 10/27/18 at 21:30 Metolazone (Zaroxolyn) 2.5 mg BID@0530,1730 PO Last administered on 12/14/18 05:04; Admin Dose 2.5 MG; Start 11/01/18 at 05:30 Enoxaparin Sodium (Lovenox) 40 mg DAILY SC Last administered on 11/23/18 09:02; Admin Dose 40 MG; Start 11/02/18 at 09:00; Status Hold Ibuprofen (Motrin) 400 mg Q6H PRN PO MILD PAIN(1-3) OR TEMP>38C Last administered on 12/09/18 02:07; Admin Dose 400 MG; Start 11/07/18 at 12:20 Potassium Chloride (Klor-Con 20) 20 meq BID PO Last administered on 12/14/18 09:24; Admin Dose 20 MEQ; Start 11/11/18 at 09:00 Ondansetron HCl (Zofran Inj) 4 mg Q6H PRN IV NAUSEA AND/OR VOMITING Last a dministered on 11/19/18 20:21; Admin Dose 4 MG; Start 11/19/18 at 20:30 Bumetanide (Bumex) 0.5 mg DAILY PO Last administered on 12/14/18 09:24; Admin Dose 0.5 MG; Start 11/20/18 at 09:00 Diphenhydramine HCl (Benadryl) 25 mg Q8H PRN PO ITCHING Last administered on 12/11/18 21:42; Admin Dose 25 MG; Start 11/20/18 at 14:00 Bisacodyl (Dulcolax Supp) 10 mg Q8H PRN [place] CONSTIPATION; Start 11/20/18 at 17:30 Guaifenesin/ Codeine Phosphate (Robitussin Ac Liquid Cup) 10 ml Q4H PRN PO COUGH; Start 11/20/18 at 17:30 Magnesium Hydroxide (Milk Of Mag) 30 ml DAILY PRN PO CONSTIPATION Last administered on 11/24/18 08:45; Admin Dose 30 ML; Start 11/20/18 at 17:30 Simethicone (Mylicon) 80 mg Q8H PRN PO INDIGESTION; Start 11/20/18 at 23:30 Escitalopram Oxalate (Lexapro) 10 mg DAILY PO Last administered on 12/14/18 09:24; Admin Dose 10 MG; Start 11/24/18 at 19:00 Anastrozole (Arimidex) 1 mg DAILY PO Last administered on 12/14/18 09:31; Admin Dose 1 MG; Start 11/25/18 at 10:30 Carvedilol (Coreg) 3.125 mg BID PO Last administered on 12/14/18 09:25; Admin Dose 3.125 MG; Start 11/25/18 at 10:30 Docusate Sodium (Colace) 100 mg BID PO Last administered on 12/14/18 09:25; Admin Dose 100 MG; Start 11/25/18 at 10:30 Loratadine (Claritin) 10 mg DAILY PO Last administered on 12/14/18 09:25; Admin Dose 10 MG; Start 11/25/18 at 10:30 Pantoprazole (Protonix Tab) 40 mg AC BREAKFAST PO Last administered on 12/14/18 05:01; Admin Dose 40 MG; Start 11/25/18 at 10:30 Polyethylene Glycol (Miralax) 17 gm DAILY PO Last administered on 12/14/18 09:25; Admin Dose 17 GM; Start 11/25/18 at 10:30 Spironolactone (Aldactone) 50 mg DAILY PO Last administered on 12/14/18 09:24; Admin Dose 50 MG; Start 11/25/18 at 10:30 Diclofenac Sodium (Voltaren 1% Gel) 2 gm QID TP Last administered on 12/14/18 12:54; Admin Dose 2 GM; Start 11/27/18 at 22:00 Oxycodone HCl (Oxycontin) 20 mg BID PO Last administered on 12/14/18 09:31; Admin Dose 20 MG; Start 12/01/18 at 09:00 Budesonide (Pulmicort (Neb)) 0.5 mg BID RESP THERAPY PRN HHN WHEEZING; Start 12/01/18 at 13:00 Zolpidem Tartrate (Ambien) 10 mg HS PRN PO INSOMNIA; Start 12/02/18 at 20:00 Ergocalciferol (Drisdol) 50,000 unit Q7D PO Last administered on 12/10/18 16:21; Admin Dose 50,000 UNIT; Start 12/03/18 at 16:00 Ampicillin Sodium/ Sulbactam Sodium 100 ml @ 100 mls/hr Q6 IVPB Last administered on 12/14/18 12:54; Admin Dose 100 MLS/HR; Start 12/12/18 at 17:00 BERT BETTENCOURT Dec 14, 2018 16:20
[2018-12-14 18:32] VITALS: BP 92/69; PULSE 87
[2018-12-14 20:00] VITALS: BP 108/60; PULSE 87; RESP 18
[2018-12-15 02:00] VITALS: BP 105/60; PULSE 89; RESP 17
[2018-12-15] MEDS: DIPHENHYDRAMINE 25 MG CAP PO PRN ×2 (03:20→22:26)
[2018-12-15] MEDS: AMPICILLIN/SULB 3 GM/NS (PMX) 100 ML IVPB SCH ×4 (05:38→23:59)
[2018-12-15] MEDS: PANTOPRAZOLE (EC) 40 MG TAB PO SCH (05:39)
[2018-12-15] MEDS: METOLAZONE 2.5 MG TAB PO SCH ×2 (05:39→18:09)
[2018-12-15 07:58] VITALS: BP 129/75; PULSE 72; RESP 18
[2018-12-15] MEDS: BUMETANIDE 0.5 MG TAB PO SCH (08:48)
[2018-12-15] MEDS: ESCITALOPRAM 10 MG TAB PO SCH (08:48)
[2018-12-15] MEDS: LORATADINE 10 MG TAB PO SCH (08:48)
[2018-12-15] MEDS: SPIRONOLACTONE 50 MG TAB PO SCH (08:48)
[2018-12-15] MEDS: oxyCODONE (CR) 20 MG TAB [oxyCONTIN] PO SCH ×2 (08:48→21:16)
[2018-12-15] MEDS: DOCUSATE SODIUM 100 MG CAP PO SCH ×2 (08:48→21:15)
[2018-12-15] MEDS: POTASSIUM CHLORIDE (SR) 20 MEQ TAB PO SCH ×2 (08:48→21:15)
[2018-12-15] MEDS: ANASTROZOLE 1 MG TAB PO SCH (08:49)
[2018-12-15] MEDS: DICLOFENAC SODIUM 1% GEL 100 GM TUBE TP SCH ×4 (08:49→21:16)
[2018-12-15] MEDS: POLYETHYLENE GLYCOL 17 GM PACKET PO SCH (08:49)
--- NOTE | 2018-12-15 11:37 | PN ---
Date/Time of Note Date/Time of Note DATE: 12/15/18 TIME: 11:36 Assessment/Plan VTE Prophylaxis Risk score (from Ns)>0 risk: 12 SCD applied (from Ns): Yes Pharmacological prophylaxis: LMWH Lines/Catheters IV Catheter Type (from Nrs): PORT-A-CATH Urinary Cath still in place: No Assessment/Plan Hospital Course -Metastatic left breast cancer with pulmonary, liver, and bone involvement. S/p chemo which is on hold now. Continued on Arimidex. Dr. Fernández is following in oncology consultation. -Recurrent pleural effusions requiring bilateral thoracentesis -Diastolic congestive heart failure, patient is currently on Aldactone, Bumex, and Coreg. Dr. Hurtado is following in cardiology consultation. -Acute on chronic pain, continue OxyContin twice daily and morphine as needed -Status post R hip arthroplasty due to lytic fracture -Status post recent fall with left wrist fracture that is being treated conservatively -Left lower extremity lymphedema -Obesity Result Diagram: 12/14/18 0453 12/14/18 0453 Subjective 24 Hr Interval Summary Free Text/Dictation Patient is doing well Exam/Review of Systems Exam Vitals Vital Signs Date Temp Pulse Resp B/P (MAP) Pulse Ox O2 O2 Flow FiO2 Time Delivery Rate 12/15/18 98.3 72 18 129/75 94 Room Air 07:58 (93) Intake and Output 12/14/18 12/14/18 12/15/18 1515:00 23:00 07:00 IntakeIntake Total 700 ml 100 ml 400 ml BalanceBalance 700 ml 100 ml 400 ml Constitutional: well developed Head: normocephalic, atraumatic Neck: supple Respiratory: clear to auscultation Cardiovascular: regular rate and rhythm Gastrointestinal: soft, non-tender Extremities: normal pulses Medications Medication Current Medications Morphine Sulfate (morphine) 2 mg Q4H PRN IV SEVERE PAIN LEVEL 7-10 Last administered on 12/09/18at 22:33; Admin Dose 2 MG; Start 10/22/18 at 01:30 Phenol (Cepastat Lozenge) 1 lozenge Q1H PRN MT sore throat Last administered on 10/31/18at 18:34; Admin Dose 1 LOZENGE; Start 10/27/18 at 21:30 Metolazone (Zaroxolyn) 2.5 mg BID@0530,1730 PO Last administered on 12/15/18 05:39; Admin Dose 2.5 MG; Start 11/01/18 at 05:30 Enoxaparin Sodium (Lovenox) 40 mg DAILY SC Last administered on 11/23/18 09:02; Admin Dose 40 MG; Start 11/02/18 at 09:00; Status Hold Ibuprofen (Motrin) 400 mg Q6H PRN PO MILD PAIN(1-3) OR TEMP>38C Last administered on 12/09/18 02:07; Admin Dose 400 MG; Start 11/07/18 at 12:20 Potassium Chloride (Klor-Con 20) 20 meq BID PO Last administered on 12/15/18 08:48; Admin Dose 20 MEQ; Start 11/11/18 at 09:00 Ondansetron HCl (Zofran Inj) 4 mg Q6H PRN IV NAUSEA AND/OR VOMITING Last administered on 11/19/18 20:21; Admin Dose 4 MG; Start 11/19/18 at 20:30 Bumetanide (Bumex) 0.5 mg DAILY PO Last administered on 12/15/18 08:48; Admin Dose 0.5 MG; Start 11/20/18 at 09:00 Diphenhydramine HCl (Benadryl) 25 mg Q8H PRN PO ITCHING Last administered on 12/15/18 03:20; Admin Dose 25 MG; Start 11/20/18 at 14:00 Bisacodyl (Dulcolax Supp) 10 mg Q8H PRN [place] CONSTIPATION; Start 11/20/18 at 17:30 Guaifenesin/ Codeine Phosphate (Robitussin Ac Liquid Cup) 10 ml Q4H PRN PO COUGH; Start 11/20/18 at 17:30 Magnesium Hydroxide (Milk Of Mag) 30 ml DAILY PRN PO CONSTIPATION Last administered on 11/24/18 08:45; Admin Dose 30 ML; Start 11/20/18 at 17:30 Simethicone (Mylicon) 80 mg Q8H PRN PO INDIGESTION; Start 11/20/18 at 23:30 Escitalopram Oxalate (Lexapro) 10 mg DAILY PO Last administered on 12/15/18 08:48; Admin Dose 10 MG; Start 11/24/18 at 19:00 Anastrozole (Arimidex) 1 mg DAILY PO Last administered on 12/15/18 08:49; Admin Dose 1 MG; Start 11/25/18 at 10:30 Carvedilol (Coreg) 3.125 mg BID PO Last administered on 12/15/18 08:48; Admin Dose 3.125 MG; Start 11/25/18 at 10:30 Docusate Sodium (Colace) 100 mg BID PO Last administered on 12/15/18 08:48; Admin Dose 100 MG; Start 11/25/18 at 10:30 Loratadine (Claritin) 10 mg DAILY PO Last administered on 12/15/18 08:48; Admin Dose 10 MG; Start 11/25/18 at 10:30 Pantoprazole (Protonix Tab) 40 mg AC BREAKFAST PO Last administered on 12/15/18 05:39; Admin Dose 40 MG; Start 11/25/18 at 10:30 Polyethylene Glycol (Miralax) 17 gm DAILY PO Last administered on 12/15/18 08:49; Admin Dose 17 GM; Start 11/25/18 at 10:30 Spironolactone (Aldactone) 50 mg DAILY PO Last administered on 12/15/18 08:48; Admin Dose 50 MG; Start 11/25/18 at 10:30 Diclofenac Sodium (Voltaren 1% Gel) 2 gm QID TP Last administered on 12/15/18 08:49; Admin Dose 2 GM; Start 11/27/18 at 22:00 Oxycodone HCl (Oxycontin) 20 mg BID PO Last administered on 12/15/18 08:48; Admin Dose 20 MG; Start 12/01/18 at 09:00 Budesonide (Pulmicort (Neb)) 0.5 mg BID RESP THERAPY PRN HHN WHEEZING; Start 12/01/18 at 13:00 Zolpidem Tartrate (Ambien) 10 mg HS PRN PO INSOMNIA; Start 12/02/18 at 20:00 Ergocalciferol (Drisdol) 50,000 unit Q7D PO Last administered on 12/10/18 16:21; Admin Dose 50,000 UNIT; Start 12/03/18 at 16:00 Ampicillin Sodium/ Sulbactam Sodium 100 ml @ 100 mls/hr Q6 IVPB Last administered on 12/15/18at 05:38; Admin Dose 100 MLS/HR; Start 12/12/18 at 17:00 LETITIA LOPEZ Dec 15, 2018 11:37
--- NOTE | 2018-12-15 12:09 | CONS ---
Consultation Date/Type/Reason Admit Date/Time October 21, 2018 at 17:39 Initial Consult Date SUBJECTIVE: Patient is awake, alert, afebrile resting in bed. VS: stable T: 98.3 LABS: Reviewed. none today Antimicrobials: Unasyn Indwelling: R chest Port-A-Cath 05/29/18 Physical examination: GEN: Obese well-developed middle-aged [place]kin[place]-speaking woman, who is alert in no distress. HENT: Head atraumatic normocephalic, sclera nonicteric vehicle mucosa pink. Neck is supple PULM: chest rise symmetrical breath sounds diminished bases. Heart: S1-S2. Abdomen: soft, bowel sounds present Extremities without cyanosis, left upper extremity with edema Assessment: 1. Bilateral mastoiditis, left more than the right 2. Metastatic breast cancer 3. Status post R hip arthroplasty due to lytic fracture 4. Status post recent fall with left wrist fracture that is being treated conservatively Plan: Patient is stable. Continue current antibiotics. Oncology recommendations. Anticipate discharge on oral Augmentin to complete 2 weeks. Requesting Provider: RUSS JEROME MD Date/Time of Note DATE: 12/15/18 TIME: 12:08 Exam/Review of Systems Exam Vitals Vital Signs Date Temp Pulse Resp B/P (MAP) Pulse Ox O2 O2 Flow FiO2 Time Delivery Rate 12/15/18 98.3 72 18 129/75 94 Room Air 07:58 (93) Intake and Output 12/14/18 12/14/18 12/15/18 1515:00 23:00 07:00 IntakeIntake Total 700 ml 100 ml 400 ml BalanceBalance 700 ml 100 ml 400 ml Results Result Diagram: 12/14/18 0453 12/14/18 0453 Medications Medication Current Medications Morphine Sulfate (morphine) 2 mg Q4H PRN IV SEVERE PAIN LEVEL 7-10 Last administered on 12/09/18at 22:33; Admin Dose 2 MG; Start 10/22/18 at 01:30 Phenol (Cepastat Lozenge) 1 lozenge Q1H PRN MT sore throat Last administered on 10/31/18at 18:34; Admin Dose 1 LOZENGE; Start 10/27/18 at 21:30 Metolazone (Zaroxolyn) 2.5 mg BID@5130,7240 PO Last administered on 12/15/18at 05:39; Admin Dose 2.5 MG; Start 11/01/18 at 05:30 Enoxaparin Sodium (Lovenox) 40 mg DAILY SC Last administered on 11/23/18 09:02; Admin Dose 40 MG; Start 11/02/18 at 09:00; Status Hold Ibuprofen (Motrin) 400 mg Q6H PRN PO MILD PAIN(1-3) OR TEMP>38C Last administered on 12/09/18 02:07; Admin Dose 400 MG; Start 11/07/18 at 12:20 Potassium Chloride (Klor-Con 20) 20 meq BID PO Last administered on 12/15/18 08:48; Admin Dose 20 MEQ; Start 11/11/18 at 09:00 Ondansetron HCl (Zofran Inj) 4 mg Q6H PRN IV NAUSEA AND/OR VOMITING Last administered on 11/19/18 20:21; Admin Dose 4 MG; Start 11/19/18 at 20:30 Bumetanide (Bumex) 0.5 mg DAILY PO Last administered on 12/15/18 08:48; Admin Dose 0.5 MG; Start 11/20/18 at 09:00 Diphenhydramine HCl (Benadryl) 25 mg Q8H PRN PO ITCHING Last administered on 12/15/18 03:20; Admin Dose 25 MG; Start 11/20/18 at 14:00 Bisacodyl (Dulcolax Supp) 10 mg Q8H PRN [place] CONSTIPATION; Start 11/20/18 at 17:30 Guaifenesin/ Codeine Phosphate (Robitussin Ac Liquid Cup) 10 ml Q4H PRN PO COUGH; Start 11/20/18 at 17:30 Magnesium Hydroxide (Milk Of Mag) 30 ml DAILY PRN PO CONSTIPATION Last administered on 11/24/18 08:45; Admin Dose 30 ML; Start 11/20/18 at 17:30 Simethicone (Mylicon) 80 mg Q8H PRN PO INDIGESTION; Start 11/20/18 at 23:30 Escitalopram Oxalate (Lexapro) 10 mg DAILY PO Last administered on 12/15/18 08:48; Admin Dose 10 MG; Start 11/24/18 at 19:00 Anastrozole (Arimidex) 1 mg DAILY PO Last administered on 12/15/18 08:49; Ad min Dose 1 MG; Start 11/25/18 at 10:30 Carvedilol (Coreg) 3.125 mg BID PO Last administered on 12/15/18 08:48; Admin Dose 3.125 MG; Start 11/25/18 at 10:30 Docusate Sodium (Colace) 100 mg BID PO Last administered on 12/15/18 08:48; Admin Dose 100 MG; Start 11/25/18 at 10:30 Loratadine (Claritin) 10 mg DAILY PO Last administered on 12/15/18 08:48; Admin Dose 10 MG; Start 11/25/18 at 10:30 Pantoprazole (Protonix Tab) 40 mg AC BREAKFAST PO Last administered on 12/15/18 05:39; Admin Dose 40 MG; Start 11/25/18 at 10:30 Polyethylene Glycol (Miralax) 17 gm DAILY PO Last administered on 12/15/18 08:49; Admin Dose 17 GM; Start 11/25/18 at 10:30 Spironolactone (Aldactone) 50 mg DAILY PO Last administered on 12/15/18 08:48; Admin Dose 50 MG; Start 11/25/18 at 10:30 Diclofenac Sodium (Voltaren 1% Gel) 2 gm QID TP Last administered on 12/15/18 08:49; Admin Dose 2 GM; Start 11/27/18 at 22:00 Oxycodone HCl (Oxycontin) 20 mg BID PO Last administered on 12/15/18 08:48; Admin Dose 20 MG; Start 12/01/18 at 09:00 Budesonide (Pulmicort (Neb)) 0.5 mg BID RESP THERAPY PRN HHN WHEEZING; Start 12/01/18 at 13:00 Zolpidem Tartrate (Ambien) 10 mg HS PRN PO INSOMNIA; Start 12/02/18 at 20:00 Ergocalciferol (Drisdol) 50,000 unit Q7D PO Last administered on 12/10/18 16:21; Admin Dose 50,000 UNIT; Start 12/03/18 at 16:00 Ampicillin Sodium/ Sulbactam Sodium 100 ml @ 100 mls/hr Q6 IVPB Last administered on 12/15/18 05:38; Admin Dose 100 MLS/HR; Start 12/12/18 at 17:00 BERT BETTENCOURT Dec 15, 2018 12:09
--- NOTE | 2018-12-15 13:57 | CONS ---
Consult Date/Type/Reason Admit Date/Time October 21, 2018 at 17:39 Initial Consult Date 10/21/18 Requesting Provider: RUSS JEROME MD Date/Time of Note DATE: 12/15/18 TIME: 13:55 Subjective NO acute events - pt stable - denies CP - con't anti-Bx - last CXR ROS: No fever, no chills, no nausea, no vomiting, no diarrhea/constipation No recent weight changes No chest pain, no PND, no orthopnea - improved SOB No dizziness, blurred vision No thirst, no heat or cold intolerance Objective Vitals Vital Signs Date Temp Pulse Resp B/P (MAP) Pulse Ox O2 O2 Flow FiO2 Time Delivery Rate 12/15/18 98.3 72 18 129/75 94 Room Air 07:58 (93) Intake and Output 12/14/18 12/14/18 12/15/18 1515:00 23:00 07:00 IntakeIntake Total 700 ml 100 ml 400 ml BalanceBalance 700 ml 100 ml 400 ml Exam General: WN/WD/NAD, AOx 3 HEENT: Unicetric/atraumatic/EOMI (follows commands) NECK: JVD elevated, no thyromegaly Lymph: no lymphadenopathy HEART: regular with no S3, II/ systolic murmur at apex, PMI L LUNGS: Coarse sounds ABD: soft, NT, ND, +BS : Intact Neuro: non focal SKIN: chronic changes EXT: trace edema Results/Medications Result Diagram: 12/14/18 0453 12/14/18 045 Home Meds Reported Medications Tuberculin,Purif.prot.deriv. (Tubersol) 5 Tub Unit/0.1 Ml Vial, 0.1 ML ID, VIAL INJECT QHS EVERY 10 DAYS FOR PPD SCREENING FOR 11 DAYS READ IN 48 HOURS,IF NEGATIVE 2STEP IN 7 DAYS FROM FIRST DOSE. 10/21/18 Acetaminophen* (Tylenol*) 325 Mg Tablet, 650 MG PO Q4H PRN for PAIN LEVEL 1- 10/10, TAB 10/21/18 Spironolactone* (Aldactone*) 50 Mg Tablet, 50 MG PO DAILY, #30 TAB HOLD FOR SBP<110 10/21/18 Simethicone* (Mylicon*) 80 Mg Tab, 80 MG PO Q8H, TAB 10/21/18 Olopatadine* (Patanol* Ophth) 0.1% - 5 Ml Drops, 1 DROP BOTH EYES BID, EA 10/21/18 Hydrocodone/Acetaminophen ([place] 10-325 Tablet) 1 Each Tablet, 1 EACH PO Q4H, TAB 10/21/18 Loratadine* (Loratadine*) 10 Mg Tablet, 10 MG PO DAILY for FOR 3 MONTHS, #30 TAB 10/21/18 Lidocaine (Lidocaine) 1 Each Adh..patch, 1 EACH TP DAILY 10/21/18 Ipratropium-Albuterol (Ipratropium-Albuterol) 0.5-3 Mg/3 Ml Ampul.neb, 3 ML INHALATION Q8H, #30 VIAL 10/21/18 Furosemide* (Furosemide*) 40 Mg Tablet, 40 MG PO BID, TAB HOLD FOR SBP<110 10/21/18 Na Phos,M-B/Na Phos,Di-Ba (Fleet Enema Extra) Unknown Strength Enema, 1 APPLIC RC NEEDED for CONSTIPATION, ENEMA 10/21/18 Bisacodyl (Dulcolax) 10 Mg Supp.rect, 10 MG RC NEEDED, SUPP.RECT 10/21/18 Potassium Chloride* (Potassium Chloride*) 20 Meq Tablet.er, 20 MEQ PO DAILY, TAB.SA 09/09/18 Pantoprazole* (Pantoprazole*) 40 Mg Tablet.dr, 40 MG PO AC BREAKFAST, TAB 08/22/18 Oxycodone Hcl* (Oxycontin*) 20 Mg Tab.er.12h, 20 MG PO Q12, TAB 08/22/18 Amlodipine Besylate* (Norvasc*) 5 Mg Tablet, 5 MG PO DAILY, TAB HOLD FOR SBP <110. 08/22/18 Polyethylene Glycol* (Miralax*) 17 Gm Powd.pack, 17 GM PO DAILY, #60 PACKET 08/22/18 Magnesium Hydroxide* (Milk Of Magnesia*) 400 Mg/5 Ml Oral.susp, 30 ML PO DAILY, ML 08/22/18 Escitalopram Oxalate* (Lexapro*) 10 Mg Tablet, 10 MG PO DAILY, #30 TAB 08/22/18 Docusate Sodium* (Colace*) 100 Mg Capsule, 100 MG PO BID, #60 CAP 08/22/18 Carvedilol* (Carvedilol*) 3.125 Mg Tablet, 3.125 MG PO BID, #60 TAB HOLD FOR SBP <110 OR LA <60. GIVE WITH FOOD. 08/22/18 Benazepril Hcl* (Benazepril Hcl*) 5 Mg Tablet, 5 MG PO DAILY, #60 TAB HOLD FOR SBP <110. 08/22/18 Anastrozole* (Arimidex*) 1 Mg Tablet, 1 MG PO DAILY, #30 TAB 08/22/18 Medications Current Medications Morphine Sulfate (morphine) 2 mg Q4H PRN IV SEVERE PAIN LEVEL 7-10 Last administered on 12/09/18 22:33; Admin Dose 2 MG; Start 10/22/18 at 01:30 Phenol (Cepastat Lozenge) 1 lozenge Q1H PRN MT sore throat Last administered on 10/31/18 18:34; Admin Dose 1 LOZENGE; Start 10/27/18 at 21:30 Metolazone (Zaroxolyn) 2.5 mg BID@0530,1730 PO Last administered on 12/15/18 05:39; Admin Dose 2.5 MG; Start 11/01/18 at 05:30 Enoxaparin Sodium (Lovenox) 40 mg DAILY SC Last administered on 11/23/18 09:02; Admin Dose 40 MG; Start 11/02/18 at 09:00; Status Hold Ibuprofen (Motrin) 400 mg Q6H PRN PO MILD PAIN(1-3) OR TEMP>38C Last administe red on 12/09/18 02:07; Admin Dose 400 MG; Start 11/07/18 at 12:20 Potassium Chloride (Klor-Con 20) 20 meq BID PO Last administered on 12/15/18 08:48; Admin Dose 20 MEQ; Start 11/11/18 at 09:00 Ondansetron HCl (Zofran Inj) 4 mg Q6H PRN IV NAUSEA AND/OR VOMITING Last administered on 11/19/18 20:21; Admin Dose 4 MG; Start 11/19/18 at 20:30 Bumetanide (Bumex) 0.5 mg DAILY PO Last administered on 12/15/18 08:48; Admin Dose 0.5 MG; Start 11/20/18 at 09:00 Diphenhydramine HCl (Benadryl) 25 mg Q8H PRN PO ITCHING Last administered on 12/15/18 03:20; Admin Dose 25 MG; Start 11/20/18 at 14:00 Bisacodyl (Dulcolax Supp) 10 mg Q8H PRN [place] CONSTIPATION; Start 11/20/18 at 17:30 Guaifenesin/ Codeine Phosphate (Robitussin Ac Liquid Cup) 10 ml Q4H PRN PO COUGH; Start 11/20/18 at 17:30 Magnesium Hydroxide (Milk Of Mag) 30 ml DAILY PRN PO CONSTIPATION Last administered on 11/24/18 08:45; Admin Dose 30 ML; Start 11/20/18 at 17:30 Simethicone (Mylicon) 80 mg Q8H PRN PO INDIGESTION; Start 11/20/18 at 23:30 Escitalopram Oxalate (Lexapro) 10 mg DAILY PO Last administered on 12/15/18 08:48; Admin Dose 10 MG; Start 11/24/18 at 19:00 Anastrozole (Arimidex) 1 mg DAILY PO Last administered on 12/15/18 08:49; Admin Dose 1 MG; Start 11/25/18 at 10:30 Carvedilol (Coreg) 3.125 mg BID PO Last administered on 12/15/18 08:48; Admin Dose 3.125 MG; Start 11/25/18 at 10:30 Docusate Sodium (Colace) 100 mg BID PO Last administered on 12/15/18 08:48; Admin Dose 100 MG; Start 11/25/18 at 10:30 Loratadine (Claritin) 10 mg DAILY PO Last administered on 12/15/18 08:48; Admin Dose 10 MG; Start 11/25/18 at 10:30 Pantoprazole (Protonix Tab) 40 mg AC BREAKFAST PO Last administered on 12/15/18 05:39; Admin Dose 40 MG; Start 11/25/18 at 10:30 Polyethylene Glycol (Miralax) 17 gm DAILY PO Last administered on 12/15/18 08:49; Admin Dose 17 GM; Start 11/25/18 at 10:30 Spironolactone (Aldactone) 50 mg DAILY PO Last administered on 12/15/18 08:48; Admin Dose 50 MG; Start 11/25/18 at 10:30 Diclofenac Sodium (Voltaren 1% Gel) 2 gm QID TP Last administered on 12/15/18 12:27; Admin Dose 2 GM; Start 11/27/18 at 22:00 Oxycodone HCl (Oxycontin) 20 mg BID PO Last administered on 12/15/18at 08:48; Admin Dose 20 MG; Start 12/01/18 at 09:00 Budesonide (Pulmicort (Neb)) 0.5 mg BID RESP THERAPY PRN HHN WHEEZING; Start 12/01/18 at 13:00 Zolpidem Tartrate (Ambien) 10 mg HS PRN PO INSOMNIA; Start 12/02/18 at 20:00 Ergocalciferol (Drisdol) 50,000 unit Q7D PO Last administered on 12/10/18 16:21; Admin Dose 50,000 UNIT; Start 12/03/18 at 16:00 Ampicillin Sodium/ Sulbactam Sodium 100 ml @ 100 mls/hr Q6 IVPB Last administered on 12/15/18at 12:27; Admin Dose 100 MLS/HR; Start 12/12/18 at 17:00 Assessment/Plan Hospital Course (Demo Recall) 1. Congestive heart failure exacerbation would be diastolic, acute on chronic by most recent echo.-now s/p echo this admit with EF 60/small effusion - better now, responding to diuresis. CHF better, but suspect effusion is re-accumulated - CXR to follow nex tweek - clinicaly stable. 2. Abnormal electrocardiogram with low voltage, rule out pericardial effusion - stable, no signs of tamponade. Treated. Off tele now. NO intervention planned. Stable. 3. Hypertension-currently borderline hypotension - treated with meds. BP stable overall. Tolerated Rx well. 4. Metastatic breast carcinoma- responded to chemo per Dr. Fernández - still poor prognosis. Traeted - hair beginning to grow back. Last effusion drainage a week ago - radiology to follow again. DR. Fernández Rx 5. History of pathologic fractures of the leg, status post open reduction and internal fixation - pain controlled. 6. Anemia =- Rx per hem-onc team. Rx as needed. 7. Increased BNP consistent with patient's congestive heart failure. 8. Pericardial effusion-small by echo - on antin-Bx 8. Cough - con't anti-bx now. LENSKY,EMILY MD Dec 15, 2018 13:57
[2018-12-15 15:01] VITALS: BP 124/72; PULSE 88; RESP 18
[2018-12-15 20:30] VITALS: BP 107/62; PULSE 89; RESP 17
--- NOTE | 2018-12-15 23:20 | CONS ---
Assessment/Plan Assessment/Plan Hospital Course (Demo Recall) METASTATIC BREAST CANCER WITH PRIMARY ADENOCARCINOMA IN the left breast. MULTIPLE BONY METS, PULMONARY METS, LIVER METS CHEMO ON HOLD PT HAS A VERY GOOD RESPONSE TO CHEMO AND AI CONT AI FOR NOW CT ABD FOR RESTAGING 08.27.18, 12.04.18 - noted , stable POST aredia Leukopenia- post chemo, FLUCTUATING post NEUPOGEN monitor closely post Neutropenia with occasional fever and chills. - resolved Anemia chronic disease SOB PLEURAL EFFUSIONS, NEG CYTOLOGY POST thoracentesis Fluid overload diuretic cardiology F-UP Severe pain in the interscapular and lumbar sacral area most probably metastatic lesion possible femoral fracture. pathologic fracture of T9 with 60% of loss of height. Bony pain with multiple bony mets post XRT d/w dr Ocampo HYPOKALEMIA- REPLACED Obesity. Weight loss 60 pounds during the last 2 years COUGH, Upper respiratory infection pharyngitis with dry cough. POST ATB PMS. Myopia. Anxiety disorder. Claustrophobia. Posttraumatic stress disorder. Pain in the left forearm with a history of fracture of ulna and radius. Tachycardia Hypoxemia at night marginal improved after 2 L of nasal cannula oxygen. Deconditioning Pain syndrome. Today the most painful zone is in the right hip area. X-ray did not show any fractures. Hyponatremia- resolved Hypoalbuminemia Right sided cp after catheter insertion and correction less discomfort. Decreased edema both lower extremities with hypotension-improving Swelling of the left forearm-persist. Consultation Date/Type/Reason Admit Date/Time October 21, 2018 at 17:39 Initial Consult Date 10/21/18 Type of Consult [facility] Requesting Provider: RUSS JEROME MD Date/Time of Note DATE: 12/15/18 TIME: 23:20 Exam/Review of Systems Exam Vitals Vital Signs Date Temp Pulse Resp B/P (MAP) Pulse Ox O2 O2 Flow FiO2 Time Delivery Rate 12/15/18 98.3 88 18 124/72 99 Room Air 15:01 (89) Intake and Output 12/14/18 12/14/18 12/15/18 1515:00 23:00 07:00 IntakeIntake Total 700 ml 100 ml 400 ml BalanceBalance 700 ml 100 ml 400 ml Exam Constitutional: alert, oriented, well developed, distress, frail; No non-verbal, No obese, No other Psych: nl mood/affect, anxiety, depression; No no complaints, No confusion, No suicidal, No other Head: normocephalic, atraumatic; No lacerations, No hematomas, No other Eyes: EOMI, nl lids, PERRL; No nl conjunctiva, No nl sclera, No icteric, No fundi, disc, No other ENMT: nl lips & teeth, tympanic membranes; No nl external ears & nose, No nl nasal mucosa & septum, No mucosa pink and moist, No intubated, No other Neck: jvd, bruits; No supple, No non-tender, No masses, No thyromegaly, No nuchal rigidity, No other Respiratory: clear to auscultation (Upper parts with pleural friction rub lower parts.), congested cough, diminished breath sounds; No normal air movement, No crackles/rales, No intercostal retraction, No labored breathing, No respirations, No tactile fremitus, No wheezing, No other Cardiovascular: regular rate and rhythm, edema, systolic murmur; No nl pulses, No bruits, No diastolic murmur, No gallop, No irregular rhythm, No jugular venous distention (JVD), No murmurs/extra sounds, No rub, No S3, No S4, No other Gastrointestinal: soft, nl liver, spleen, bowel sounds; No non-tender, No ascites, No distended, No firm, No hepatomegaly, No mass, No rebound or guarding, No splenomegaly, No surgical scars, No tender, No other Musculoskeletal: joint tenderness, muscle tone, muscle weakness; No nl extremities to inspection, No nl gait and stance, No range of motion, No spine non-tender, No swelling, No other Extremities: No normal pulses, No calf tenderness, No cyanosis, No clubbing, No edema, No pitting pedal edema, No palpable cord, No tenderness, No other Neurological: 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; No nl mental status, No nl speech, No nl strength, No confused, No DTR's symmetric, No focal weakness, No lethargic, No numbness, No reflexes, No unresponsive, No other Skin: No nl turgor, No rash or lesions, No diaphoresis, No ecchymosis, No laceration, No puncture, No other Lymph: No nl lymph nodes, No enlarged, No nontender, No other Results Result Diagram: 12/14/18 0453 12/14/18 0453 Medications Medication Current Medications Morphine Sulfate (morphine) 2 mg Q4H PRN IV SEVERE PAIN LEVEL 7-10 Last administered on 12/09/18 22:33; Admin Dose 2 MG; Start 10/22/18 at 01:30 Phenol (Cepastat Lozenge) 1 lozenge Q1H PRN MT sore throat Last administered on 10/31/18 18:34; Admin Dose 1 LOZENGE; Start 10/27/18 at 21:30 Metolazone (Zaroxolyn) 2.5 mg BID@0530,1730 PO Last administered on 12/15/18 18:09; Admin Dose 2.5 MG; Start 11/01/18 at 05:30 Enoxaparin Sodium (Lovenox) 40 mg DAILY SC Last administered on 11/23/18 09:02; Admin Dose 40 MG; Start 11/02/18 at 09:00; Status Hold Ibuprofen (Motrin) 400 mg Q6H PRN PO MILD PAIN(1-3) OR TEMP>38C Last administered on 12/09/18 02:07; Admin Dose 400 MG; Start 11/07/18 at 12:20 Potassium Chloride (Klor-Con 20) 20 meq BID PO Last administered on 12/15/18 21:15; Admin Dose 20 MEQ; Start 11/11/18 at 09:00 Ondansetron HCl (Zofran Inj) 4 mg Q6H PRN IV NAUSEA AND/OR VOMITING Last administered on 11/19/18 20:21; Admin Dose 4 MG; Start 11/19/18 at 20:30 Bumetanide (Bumex) 0.5 mg DAILY PO Last administered on 12/15/18 08:48; Admin Dose 0.5 MG; Start 11/20/18 at 09:00 Diphenhydramine HCl (Benadryl) 25 mg Q8H PRN PO ITCHING Last administered on 12/15/18 22:26; Admin Dose 25 MG; Start 11/20/18 at 14:00 Bisacodyl (Dulcolax Supp) 10 mg Q8H PRN [place] CONSTIPATION; Start 11/20/18 at 17:30 Guaifenesin/ Codeine Phosphate (Robitussin Ac Liquid Cup) 10 ml Q4H PRN PO COUGH; Start 11/20/18 at 17:30 Magnesium Hydroxide (Milk Of Mag) 30 ml DAILY PRN PO CONSTIPATION Last administered on 11/24/18 08:45; Admin Dose 30 ML; Start 11/20/18 at 17:30 Simethicone (Mylicon) 80 mg Q8H PRN PO INDIGESTION; Start 11/20/18 at 23:30 Escitalopram Oxalate (Lexapro) 10 mg DAILY PO Last administered on 12/15/18 08 :48; Admin Dose 10 MG; Start 11/24/18 at 19:00 Anastrozole (Arimidex) 1 mg DAILY PO Last administered on 12/15/18 08:49; Admin Dose 1 MG; Start 11/25/18 at 10:30 Carvedilol (Coreg) 3.125 mg BID PO Last administered on 12/15/18 21:15; Admin Dose 3.125 MG; Start 11/25/18 at 10:30 Docusate Sodium (Colace) 100 mg BID PO Last administered on 12/15/18 21:15; Admin Dose 100 MG; Start 11/25/18 at 10:30 Loratadine (Claritin) 10 mg DAILY PO Last administered on 12/15/18 08:48; Admin Dose 10 MG; Start 11/25/18 at 10:30 Pantoprazole (Protonix Tab) 40 mg AC BREAKFAST PO Last administered on 9at 05:39; Admin Dose 40 MG; Start 11/25/18 at 10:30 Polyethylene Glycol (Miralax) 17 gm DAILY PO Last administered on 12/15/18 08:49; Admin Dose 17 GM; Start 11/25/18 at 10:30 Spironolactone (Aldactone) 50 mg DAILY PO Last administered on 12/15/18 08:48; Admin Dose 50 MG; Start 11/25/18 at 10:30 Diclofenac Sodium (Voltaren 1% Gel) 2 gm QID TP Last administered on 12/15/18 21:16; Admin Dose 2 GM; Start 11/27/18 at 22:00 Oxycodone HCl (Oxycontin) 20 mg BID PO Last administered on 12/15/18 21:16; Admin Dose 20 MG; Start 12/01/18 at 09:00 Budesonide (Pulmicort (Neb)) 0.5 mg BID RESP THERAPY PRN HHN WHEEZING; Start 12/01/18 at 13:00 Zolpidem Tartrate (Ambien) 10 mg HS PRN PO INSOMNIA; Start 12/02/18 at 20:00 Ergocalciferol (Drisdol) 50,000 unit Q7D PO Last administered on 12/10/18at 16:21; Admin Dose 50,000 UNIT; Start 12/03/18 at 16:00 Ampicillin Sodium/ Sulbactam Sodium 100 ml @ 100 mls/hr Q6 IVPB Last administered on 12/15/18at 18:10; Admin Dose 100 MLS/HR; Start 12/12/18 at 17:00 DES DUNAWAY MD Dec 15, 2018 23:20
[2018-12-16 02:00] VITALS: BP 110/70; PULSE 75; RESP 17
[2018-12-16] MEDS: METOLAZONE 2.5 MG TAB PO SCH ×2 (05:37→17:48)
[2018-12-16] MEDS: PANTOPRAZOLE (EC) 40 MG TAB PO SCH ×2 (05:38→07:20)
[2018-12-16] MEDS: AMPICILLIN/SULB 3 GM/NS (PMX) 100 ML IVPB SCH ×4 (05:38→23:47)
[2018-12-16 07:45] VITALS: BP 110/75; PULSE 78; RESP 18
[2018-12-16] MEDS: BUMETANIDE 0.5 MG TAB PO SCH (08:33)
[2018-12-16] MEDS: ESCITALOPRAM 10 MG TAB PO SCH (08:33)
[2018-12-16] MEDS: LORATADINE 10 MG TAB PO SCH (08:33)
[2018-12-16] MEDS: POLYETHYLENE GLYCOL 17 GM PACKET PO SCH (08:34)
[2018-12-16] MEDS: POTASSIUM CHLORIDE (SR) 20 MEQ TAB PO SCH ×2 (08:34→21:04)
[2018-12-16] MEDS: oxyCODONE (CR) 20 MG TAB [oxyCONTIN] PO SCH ×2 (08:34→21:05)
[2018-12-16] MEDS: DOCUSATE SODIUM 100 MG CAP PO SCH ×2 (08:34→21:05)
[2018-12-16] MEDS: SPIRONOLACTONE 50 MG TAB PO SCH (08:34)
[2018-12-16] MEDS: ANASTROZOLE 1 MG TAB PO SCH (08:35)
[2018-12-16] MEDS: DICLOFENAC SODIUM 1% GEL 100 GM TUBE TP SCH ×4 (08:36→21:05)
--- NOTE | 2018-12-16 12:23 | CONS ---
Assessment/Plan Assessment/Plan Hospital Course (Demo Recall) IMPRESSION: 1. Congestive heart failure exacerbation would be diastolic, acute on chronic by most recent echo.-now s/p echo this admit with EF 60/small effusion 2. Abnormal electrocardiogram with low voltage, rule out pericardial effusion. 3. Hypertension-currently borderline hypotension 4. Metastatic breast carcinoma. 5. History of pathologic fractures of the leg, status post open reduction and internal fixation. 6. Anemia. 7. Increased BNP consistent with patient's congestive heart failure. 8. Pericardial effusion-small by echo 9. Edema-LE venous RAMÍREZ neg for DVT 10. Hypokalemia 11.Wrist fracture acute by films 11/20-conservative management at this time 12. Pleural effusion s/p recurrent thoracentesis last 12/04 Recc: -On med-surg -Continued on metolazone BID with low dose PO bumex and aldactone with overall reasonable volume status and resolution of much of LLE edema -renal and onc following -continue low dose coreg as tolerated only -continue conservative management of wrist fracture -? need for pleur-x catheter Consultation Date/Type/Reason Admit Date/Time October 21, 2018 at 17:39 Initial Consult Date 10/21/18 Type of Consult Cardiology Reason for Consultation CHF Requesting Provider: RUSS JEROME MD Date/Time of Note DATE: 12/16/18 TIME: 12:21 Exam/Review of Systems Vital Signs Vitals Vital Signs Date Temp Pulse Resp B/P (MAP) Pulse Ox O2 O2 Flow FiO2 Time Delivery Rate 12/16/18 97.5 78 18 110/75 93 Room Air 07:45 (87) Intake and Output 12/15/18 12/15/18 12/16/18 1515:00 23:00 07:00 IntakeIntake Total 100 ml 900 ml 200 ml BalanceBalance 100 ml 900 ml 200 ml Exam Exam Review of Systems: CONSTITUTIONAL: No fevers, chills. PULMONARY: No sob CARDIOVASCULAR: No chest pain/palpitations GASTROINTESTINAL: No nausea/vomiting. GENITOURINARY: No hematuria/dysuria. MUSCULOSKELETAL: No myagias/arthalgias. PSYCHIATRIC: The patient denies depression. NEUROLOGIC: mild generalized weakness Constitutional: alert Psych: no complaints Head: normocephalic ENMT: nl external ears & nose Neck: jvd (9 cm water), bruits Cardiovascular: regular rate and rhythm Gastrointestinal: soft, non-tender Musculoskeletal: muscle tone (normal) Extremities: edema (none) Neurological: other (No focal deficits) Labs Result Diagram: 12/14/1845212/14/18452 Medications Medications Current Medications Morphine Sulfate (morphine) 2 mg Q4H PRN IV SEVERE PAIN LEVEL 7-10 Last administered on 12/09/18 22:33; Admin Dose 2 MG; Start 10/22/18 at 01:30 Phenol (Cepastat Lozenge) 1 lozenge Q1H PRN MT sore throat Last administered on 10/31/18 18:34; Admin Dose 1 LOZENGE; Start 10/27/18 at 21:30 Metolazone (Zaroxolyn) 2.5 mg BID@0530,1730 PO Last administered on 12/16/18 05:37; Admin Dose 2.5 MG; Start 11/01/18 at 05:30 Enoxaparin Sodium (Lovenox) 40 mg DAILY SC Last administered on 11/23/18 09:02; Admin Dose 40 MG; Start 11/02/18 at 09:00; Status Hold Ibuprofen (Motrin) 400 mg Q6H PRN PO MILD PAIN(1-3) OR TEMP>38C Last administered on 12/09/18 02:07; Admin Dose 400 MG; Start 11/07/18 at 12:20 Potassium Chloride (Klor-Con 20) 20 meq BID PO Last administered on 12/16/18 08:34; Admin Dose 20 MEQ; Start 11/11/18 at 09:00 Ondansetron HCl (Zofran Inj) 4 mg Q6H PRN IV NAUSEA AND/OR VOMITING Last admi nistered on 11/19/18 20:21; Admin Dose 4 MG; Start 11/19/18 at 20:30 Bumetanide (Bumex) 0.5 mg DAILY PO Last administered on 12/16/18 08:33; Admin Dose 0.5 MG; Start 11/20/18 at 09:00 Diphenhydramine HCl (Benadryl) 25 mg Q8H PRN PO ITCHING Last administered on 12/15/18 22:26; Admin Dose 25 MG; Start 11/20/18 at 14:00 Bisacodyl (Dulcolax Supp) 10 mg Q8H PRN [place] CONSTIPATION; Start 11/20/18 at 17:30 Guaifenesin/ Codeine Phosphate (Robitussin Ac Liquid Cup) 10 ml Q4H PRN PO COUGH; Start 11/20/18 at 17:30 Magnesium Hydroxide (Milk Of Mag) 30 ml DAILY PRN PO CONSTIPATION Last administered on 11/24/18at 08:45; Admin Dose 30 ML; Start 11/20/18 at 17:30 Simethicone (Mylicon) 80 mg Q8H PRN PO INDIGESTION; Start 11/20/18 at 23:30 Escitalopram Oxalate (Lexapro) 10 mg DAILY PO Last administered on 12/16/18 08:33; Admin Dose 10 MG; Start 11/24/18 at 19:00 Anastrozole (Arimidex) 1 mg DAILY PO Last administered on 12/16/18 08:35; Admin Dose 1 MG; Start 11/25/18 at 10:30 Carvedilol (Coreg) 3.125 mg BID PO Last administered on 12/16/18 08:34; Admin Dose 3.125 MG; Start 11/25/18 at 10:30 Docusate Sodium (Colace) 100 mg BID PO Last administered on 12/16/18 08:34; Admin Dose 100 MG; Start 11/25/18 at 10:30 Loratadine (Claritin) 10 mg DAILY PO Last administered on 12/16/18 08:33; Admin Dose 10 MG; Start 11/25/18 at 10:30 Pantoprazole (Protonix Tab) 40 mg AC BREAKFAST PO Last administered on at 05:38; Admin Dose 40 MG; Start 11/25/18 at 10:30 Polyethylene Glycol (Miralax) 17 gm DAILY PO Last administered on 12/16/18 08:34; Admin Dose 17 GM; Start 11/25/18 at 10:30 Spironolactone (Aldactone) 50 mg DAILY PO Last administered on 12/16/18 08:34; Admin Dose 50 MG; Start 11/25/18 at 10:30 Diclofenac Sodium (Voltaren 1% Gel) 2 gm QID TP Last administered on 12/16/18 08:36; Admin Dose 2 GM; Start 6/12/19 at 22:00 Oxycodone HCl (Oxycontin) 20 mg BID PO Last administered on 12/16/18at 08:34; Admin Dose 20 MG; Start 12/01/18 at 09:00 Budesonide (Pulmicort (Neb)) 0.5 mg BID RESP THERAPY PRN HHN WHEEZING; Start 12/01/18 at 13:00 Zolpidem Tartrate (Ambien) 10 mg HS PRN PO INSOMNIA; Start 12/02/18 at 20:00 Ergocalciferol (Drisdol) 50,000 unit Q7D PO Last administered on 12/10/18at 16: 21; Admin Dose 50,000 UNIT; Start 12/03/18 at 16:00 Ampicillin Sodium/ Sulbactam Sodium 100 ml @ 100 mls/hr Q6 IVPB Last administered on 12/16/18at 05:38; Admin Dose 100 MLS/HR; Start 12/12/18 at 17:00 KAMILA TERESA Dec 16, 2018 12:23
--- NOTE | 2018-12-16 14:26 | CONS ---
Assessment/Plan Assessment/Plan Hospital Course (Demo Recall) Patient is alert feels better Antimicrobials: Unasyn Indwelling: R chest Port-A-Cath 05/29/18 Physical examination: Obese well-developed middle-aged [place]yan-speaking woman who is alert in no distress. Head atraumatic normocephalic sclera nonicteric vehicle mucosa pink. Neck is supple chest rise symmetrical breath sounds diminished bases. Heart: S1-S2. Abdomen soft bowel sounds present extremities without cyanosis, left upper extremity with edema Assessment: 1. Bilateral mastoiditis, left more than the right 2. Metastatic breast cancer 3. Status post R hip arthroplasty due to lytic fracture 4. Status post recent fall with left wrist fracture that is being treated conservatively Plan: Ear pain improving, continue antibiotics, follow oncology recommendations, anticipate discharge on oral Augmentin to complete 2 weeks Consultation Date/Type/Reason Admit Date/Time October 21, 2018 at 17:39 Initial Consult Date 11/21/18 Type of Consult id Requesting Provider: RUSS JEROME MD Date/Time of Note DATE: 12/16/18 TIME: 14:25 Exam/Review of Systems Exam Vitals Vital Signs Date Temp Pulse Resp B/P (MAP) Pulse Ox O2 O2 Flow FiO2 Time Delivery Rate 12/16/18 97.5 78 18 110/75 93 Room Air 07:45 (87) Intake and Output 12/15/18 12/15/18 12/16/18 1515:00 23:00 07:00 IntakeIntake Total 100 ml 900 ml 200 ml BalanceBalance 100 ml 900 ml 200 ml Results Result Diagram: 12/14/18 0453 12/14/18 0453 Medications Medication Current Medications Morphine Sulfate (morphine) 2 mg Q4H PRN IV SEVERE PAIN LEVEL 7-10 Last administered on 12/09/18at 22:33; Admin Dose 2 MG; Start 10/22/18 at 01:30 Phenol (Cepastat Lozenge) 1 lozenge Q1H PRN MT sore throat Last administered on 10/31/18at 18:34; Admin Dose 1 LOZENGE; Start 10/27/18 at 21:30 Metolazone (Zaroxolyn) 2.5 mg BID@9730,0400 PO Last administered on 12/16/18at 05:37; Admin Dose 2.5 MG; Start 11/01/18 at 05:30 Enoxaparin Sodium (Lovenox) 40 mg DAILY SC Last administered on 11/23/18 09:02; Admin Dose 40 MG; Start 11/02/18 at 09:00; Status Hold Ibuprofen (Motrin) 400 mg Q6H PRN PO MILD PAIN(1-3) OR TEMP>38C Last administered on 12/09/18 02:07; Admin Dose 400 MG; Start 11/07/18 at 12:20 Potassium Chloride (Klor-Con 20) 20 meq BID PO Last administered on 12/16/18 08:34; Admin Dose 20 MEQ; Start 11/11/18 at 09:00 Ondansetron HCl (Zofran Inj) 4 mg Q6H PRN IV NAUSEA AND/OR VOMITING Last admin istered on 11/19/18 20:21; Admin Dose 4 MG; Start 11/19/18 at 20:30 Bumetanide (Bumex) 0.5 mg DAILY PO Last administered on 12/16/18 08:33; Admin Dose 0.5 MG; Start 11/20/18 at 09:00 Diphenhydramine HCl (Benadryl) 25 mg Q8H PRN PO ITCHING Last administered on 12/15/18 22:26; Admin Dose 25 MG; Start 11/20/18 at 14:00 Bisacodyl (Dulcolax Supp) 10 mg Q8H PRN [place] CONSTIPATION; Start 11/20/18 at 17:30 Guaifenesin/ Codeine Phosphate (Robitussin Ac Liquid Cup) 10 ml Q4H PRN PO COUGH; Start 11/20/18 at 17:30 Magnesium Hydroxide (Milk Of Mag) 30 ml DAILY PRN PO CONSTIPATION Last administered on 11/24/18 08:45; Admin Dose 30 ML; Start 11/20/18 at 17:30 Simethicone (Mylicon) 80 mg Q8H PRN PO INDIGESTION; Start 11/20/18 at 23:30 Escitalopram Oxalate (Lexapro) 10 mg DAILY PO Last administered on 12/16/18 08:33; Admin Dose 10 MG; Start 11/24/18 at 19:00 Anastrozole (Arimidex) 1 mg DAILY PO Last administered on 12/16/18 08:35; Admin Dose 1 MG; Start 11/25/18 at 10:30 Carvedilol (Coreg) 3.125 mg BID PO Last administered on 12/16/18 08:34; Admin Dose 3.125 MG; Start 11/25/18 at 10:30 Docusate Sodium (Colace) 100 mg BID PO Last administered on 12/16/18 08:34; Admin Dose 100 MG; Start 11/25/18 at 10:30 Loratadine (Claritin) 10 mg DAILY PO Last administered on 12/16/18 08:33; Admin Dose 10 MG; Start 11/25/18 at 10:30 Pantoprazole (Protonix Tab) 40 mg AC BREAKFAST PO Last administered on 9at 05:38; Admin Dose 40 MG; Start 11/25/18 at 10:30 Polyethylene Glycol (Miralax) 17 gm DAILY PO Last administered on 12/16/18 08:34; Admin Dose 17 GM; Start 11/25/18 at 10:30 Spironolactone (Aldactone) 50 mg DAILY PO Last administered on 12/16/18 08:34; Admin Dose 50 MG; Start 11/25/18 at 10:30 Diclofenac Sodium (Voltaren 1% Gel) 2 gm QID TP Last administered on 12/16/18 08:36; Admin Dose 2 GM; Start 11/27/18 at 22:00 Oxycodone HCl (Oxycontin) 20 mg BID PO Last administered on 12/16/18 08:34; Admin Dose 20 MG; Start 12/01/18 at 09:00 Budesonide (Pulmicort (Neb)) 0.5 mg BID RESP THERAPY PRN HHN WHEEZING; Start 12/01/18 at 13:00 Zolpidem Tartrate (Ambien) 10 mg HS PRN PO INSOMNIA; Start 12/02/18 at 20:00 Ergocalciferol (Drisdol) 50,000 unit Q7D PO Last administered on 12/10/18 16:2 1; Admin Dose 50,000 UNIT; Start 12/03/18 at 16:00 Ampicillin Sodium/ Sulbactam Sodium 100 ml @ 100 mls/hr Q6 IVPB Last administered on 12/16/18 05:38; Admin Dose 100 MLS/HR; Start 12/12/18 at 17:00 YUAN ROMERO NP Dec 16, 2018 14:26
[2018-12-16 14:35] VITALS: BP 119/85; PULSE 91; RESP 18
--- NOTE | 2018-12-16 18:07 | PN ---
Date/Time of Note Date/Time of Note DATE: 12/16/18 TIME: 18:07 Assessment/Plan VTE Prophylaxis Risk score (from Nsg)>0 risk: 12 SCD applied (from Nsg): Yes Pharmacological prophylaxis: LMWH Lines/Catheters IV Catheter Type (from Nrsg): PORT-A-CATH Urinary Cath still in place: No Assessment/Plan Hospital Course Pt states improvement in left air pain, denies SOB, CRX tomorrow for recurrent pleural effusion evaluation. Assessment/Plan -Bilateral mastoiditis, left more than the right. Continue Unasyn. Dr Espinosa is following in ID consultation. -Metastatic left breast cancer with pulmonary, liver, and bone involvement. S/p chemo which is on hold now. Continued on Arimidex. Dr. Fernández is following in oncology consultation. -Recurrent pleural effusions requiring bilateral thoracentesis -Diastolic congestive heart failure, patient is currently on Aldactone, Bumex, and Coreg. Dr. Hurtado is following in cardiology consultation. -Acute on chronic pain, continue OxyContin twice daily and morphine as needed -Status post R hip arthroplasty due to lytic fracture -Status post recent fall with left wrist fracture that is being treated conservatively -Left lower extremity lymphedema -Obesity Further recommendations based on clinical course. Plan of care discussed with Dr. Peñaloza. Result Diagram: 12/14/1845212/14/18 045 Exam/Review of Systems Exam Vitals Vital Signs Date Temp Pulse Resp B/P (MAP) Pulse Ox O2 O2 Flow FiO2 Time Delivery Rate 12/16/18 97.9 91 18 119/85 90 Room Air 14:35 (96) Intake and Output 12/15/18 12/15/18 12/16/18 1515:00 23:00 07:00 IntakeIntake Total 100 ml 900 ml 200 ml BalanceBalance 100 ml 900 ml 200 ml Exam Constitutional: alert, oriented Respiratory: clear to auscultation Cardiovascular: nl pulses Gastrointestinal: soft, non-tender Extremities: edema Neurological: nl mental status Skin: nl turgor Additional Comments Right chest Port-A-Cath Medications Medication Current Medications Morphine Sulfate (morphine) 2 mg Q4H PRN IV SEVERE PAIN LEVEL 7-10 Last administered on 12/09/18at 22:33; Admin Dose 2 MG; Start 10/22/18 at 01:30 Phenol (Cepastat Lozenge) 1 lozenge Q1H PRN MT sore throat Last administered on 10/31/18 18:34; Admin Dose 1 LOZENGE; Start 10/27/18 at 21:30 Metolazone (Zaroxolyn) 2.5 mg BID@0530,1730 PO Last administered on 12/16/18 17:48; Admin Dose 2.5 MG; Start 11/01/18 at 05:30 Enoxaparin Sodium (Lovenox) 40 mg DAILY SC Last administered on 11/23/18 09:02; Admin Dose 40 MG; Start 11/02/18 at 09:00; Status Hold Ibuprofen (Motrin) 400 mg Q6H PRN PO MILD PAIN(1-3) OR TEMP>38C Last administered on 12/09/18 02:07; Admin Dose 400 MG; Start 11/07/18 at 12:20 Potassium Chloride (Klor-Con 20) 20 meq BID PO Last administered on 12/16/18 08:34; Admin Dose 20 MEQ; Start 11/11/18 at 09:00 Ondansetron HCl (Zofran Inj) 4 mg Q6H PRN IV NAUSEA AND/OR VOMITING Last administered on 11/19/18 20:21; Admin Dose 4 MG; Start 11/19/18 at 20:30 Bumetanide (Bumex) 0.5 mg DAILY PO Last administered on 12/16/18 08:33; Admin Dose 0.5 MG; Start 11/20/18 at 09:00 Diphenhydramine HCl (Benadryl) 25 mg Q8H PRN PO ITCHING Last administered on 12/15/18 22:26; Admin Dose 25 MG; Start 11/20/18 at 14:00 Bisacodyl (Dulcolax Supp) 10 mg Q8H PRN PA CONSTIPATION; Start 11/20/18 at 17:30 Guaifenesin/ Codeine Phosphate (Robitussin Ac Liquid Cup) 10 ml Q4H PRN PO COUGH; Start 11/20/18 at 17:30 Magnesium Hydroxide (Milk Of Mag) 30 ml DAILY PRN PO CONSTIPATION Last administered on 11/24/18 08:45; Admin Dose 30 ML; Start 11/20/18 at 17:30 Simethicone (Mylicon) 80 mg Q8H PRN PO INDIGESTION; Start 11/20/18 at 23:30 Escitalopram Oxalate (Lexapro) 10 mg DAILY PO Last administered on 12/16/18 08:33; Admin Dose 10 MG; Start 11/24/18 at 19:00 Anastrozole (Arimidex) 1 mg DAILY PO Last administered on 12/16/18 08:35; Admin Dose 1 MG; Start 11/25/18 at 10:30 Carvedilol (Coreg) 3.125 mg BID PO Last administered on 12/16/18 08:34; Admin Dose 3.125 MG; Start 11/25/18 at 10:30 Docusate Sodium (Colace) 100 mg BID PO Last administered on 12/16/18 08:34; Admin Dose 100 MG; Start 11/25/18 at 10:30 Loratadine (Claritin) 10 mg DAILY PO Last administered on 12/16/18 08:33; Admin Dose 10 MG; Start 11/25/18 at 10:30 Pantoprazole (Protonix Tab) 40 mg AC BREAKFAST PO Last administered on 12/16/18 05:38; Admin Dose 40 MG; Start 11/25/18 at 10:30 Polyethylene Glycol (Miralax) 17 gm DAILY PO Last administered on 12/16/18 08:34; Admin Dose 17 GM; Start 11/25/18 at 10:30 Spironolactone (Aldactone) 50 mg DAILY PO Last administered on 12/16/18 08:34; Admin Dose 50 MG; Start 11/25/18 at 10:30 Diclofenac Sodium (Voltaren 1% Gel) 2 gm QID TP Last administered on 12/16/18 08:36; Admin Dose 2 GM; Start 11/27/18 at 22:00 Oxycodone HCl (Oxycontin) 20 mg BID PO Last administered on 12/16/18 08:34; Admin Dose 20 MG; Start 12/01/18 at 09:00 Budesonide (Pulmicort (Neb)) 0.5 mg BID RESP THERAPY PRN HHN WHEEZING; Start 12/01/18 at 13:00 Zolpidem Tartrate (Ambien) 10 mg HS PRN PO INSOMNIA; Start 12/02/18 at 20:00 Ergocalciferol (Drisdol) 50,000 unit Q7D PO Last administered on 12/10/18at 16:21; Admin Dose 50,000 UNIT; Start 12/03/18 at 16:00 Ampicillin Sodium/ Sulbactam Sodium 100 ml @ 100 mls/hr Q6 IVPB Last administered on 12/16/18at 14:39; Admin Dose 100 MLS/HR; Start 12/12/18 at 17:00 YEISON SOLIZ Dec 16, 2018 18:07
[2018-12-16 20:33] VITALS: BP 102/70; PULSE 85; RESP 18
--- NOTE | 2018-12-16 22:52 | CONS ---
Assessment/Plan Assessment/Plan Hospital Course (Demo Recall) METASTATIC BREAST CANCER WITH PRIMARY ADENOCARCINOMA IN the left breast. MULTIPLE BONY METS, PULMONARY METS, LIVER METS CHEMO ON HOLD PT HAS A VERY GOOD RESPONSE TO CHEMO AND AI CONT AI FOR NOW CT ABD FOR RESTAGING 08.27.18, 12.04.18 - noted , stable POST aredia Leukopenia- post chemo, FLUCTUATING post NEUPOGEN monitor closely post Neutropenia with occasional fever and chills. - resolved Anemia chronic disease SOB PLEURAL EFFUSIONS, NEG CYTOLOGY POST thoracentesis Fluid overload diuretic cardiology F-UP Severe pain in the interscapular and lumbar sacral area most probably metastatic lesion possible femoral fracture. pathologic fracture of T9 with 60% of loss of height. Bony pain with multiple bony mets post XRT d/w dr Ocampo HYPOKALEMIA- REPLACED Obesity. Weight loss 60 pounds during the last 2 years COUGH, Upper respiratory infection pharyngitis with dry cough. POST ATB PMS. Myopia. Anxiety disorder. Claustrophobia. Posttraumatic stress disorder. Pain in the left forearm with a history of fracture of ulna and radius. Tachycardia Hypoxemia at night marginal improved after 2 L of nasal cannula oxygen. Deconditioning Pain syndrome. Today the most painful zone is in the right hip area. X-ray did not show any fractures. Hyponatremia- resolved Hypoalbuminemia Right sided cp after catheter insertion and correction less discomfort. Decreased edema both lower extremities with hypotension-improving Swelling of the left forearm-persist. Consultation Date/Type/Reason Admit Date/Time October 21, 2018 at 17:39 Initial Consult Date 10/21/18 Type of Consult [facility] Requesting Provider: RUSS JEROME MD Date/Time of Note DATE: 12/16/18 TIME: 22:52 Exam/Review of Systems Exam Vitals Vital Signs Date Temp Pulse Resp B/P (MAP) Pulse Ox O2 O2 Flow FiO2 Time Delivery Rate 12/16/18 97.8 85 18 102/70 94 20:33 (81) 12/16/18 Room Air 14:35 Intake and Output 12/15/18 12/15/18 12/16/18 1515:00 23:00 07:00 IntakeIntake Total 100 ml 900 ml 200 ml BalanceBalance 100 ml 900 ml 200 ml Exam Constitutional: alert, oriented, well developed, distress, frail; No non-verbal, No obese, No other Psych: nl mood/affect, anxiety, depression; No no complaints, No confusion, No suicidal, No other Head: normocephalic, atraumatic; No lacerations, No hematomas, No other Eyes: EOMI, nl lids, PERRL; No nl conjunctiva, No nl sclera, No icteric, No fundi, disc, No other ENMT: nl lips & teeth, tympanic membranes; No nl external ears & nose, No nl nasal mucosa & septum, No mucosa pink and moist, No intubated, No other Neck: jvd, bruits; No supple, No non-tender, No masses, No thyromegaly, No nuchal rigidity, No other Respiratory: clear to auscultation (Upper parts with pleural friction rub lower parts.), congested cough, diminished breath sounds; No normal air movement, No crackles/rales, No intercostal retraction, No labored breathing, No respirations, No tactile fremitus, No wheezing, No other Cardiovascular: regular rate and rhythm, edema, systolic murmur; No nl pulses, No bruits, No diastolic murmur, No gallop, No irregular rhythm, No jugular venous distention (JVD), No murmurs/extra sounds, No rub, No S3, No S4, No other Gastrointestinal: soft, nl liver, spleen, bowel sounds; No non-tender, No ascites, No distended, No firm, No hepatomegaly, No mass, No rebound or guarding, No splenomegaly, No surgical scars, No tender, No other Musculoskeletal: joint tenderness, muscle tone, muscle weakness; No nl extremities to inspection, No nl gait and stance, No range of motion, No spine non-tender, No swelling, No other Extremities: No normal pulses, No calf tenderness, No cyanosis, No clubbing, No edema, No pitting pedal edema, No palpable cord, No tenderness, No other Neurological: PER DIEM NURSE 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; No nl mental status, No nl speech, No nl strength, No confused, No DTR's symmetric, No focal weakness, No lethargic, No numbness, No reflexes, No unresponsive, No other Skin: No nl turgor, No rash or lesions, No diaphoresis, No ecchymosis, No laceration, No puncture, No other Lymph: No nl lymph nodes, No enlarged, No nontender, No other Results Result Diagram: 12/14/18 0453 12/14/183 Medications Medication Current Medications Morphine Sulfate (morphine) 2 mg Q4H PRN IV SEVERE PAIN LEVEL 7-10 Last administered on 12/09/18 22:33; Admin Dose 2 MG; Start 10/22/18 at 01:30 Phenol (Cepastat Lozenge) 1 lozenge Q1H PRN MT sore throat Last administered on 10/31/18 18:34; Admin Dose 1 LOZENGE; Start 10/27/18 at 21:30 Metolazone (Zaroxolyn) 2.5 mg BID@0530,1730 PO Last administered on 12/16/18 17:48; Admin Dose 2.5 MG; Start 11/01/18 at 05:30 Enoxaparin Sodium (Lovenox) 40 mg DAILY SC Last administered on 11/23/18 09:02; Admin Dose 40 MG; Start 11/02/18 at 09:00; Status Hold Ibuprofen (Motrin) 400 mg Q6H PRN PO MILD PAIN(1-3) OR TEMP>38C Last administered on 12/09/18 02:07; Admin Dose 400 MG; Start 11/07/18 at 12:20 Potassium Chloride (Klor-Con 20) 20 meq BID PO Last administered on 12/16/18 21:04; Admin Dose 20 MEQ; Start 11/11/18 at 09:00 Ondansetron HCl (Zofran Inj) 4 mg Q6H PRN IV NAUSEA AND/OR VOMITING Last administered on 11/19/18 20:21; Admin Dose 4 MG; Start 11/19/18 at 20:30 Bumetanide (Bumex) 0.5 mg DAILY PO Last administered on 12/16/18 08:33; Admin Dose 0.5 MG; Start 11/20/18 at 09:00 Diphenhydramine HCl (Benadryl) 25 mg Q8H PRN PO ITCHING Last administered on 12/15/18 22:26; Admin Dose 25 MG; Start 11/20/18 at 14:00 Bisacodyl (Dulcolax Supp) 10 mg Q8H PRN [place] CONSTIPATION; Start 11/20/18 at 17:30 Guaifenesin/ Codeine Phosphate (Robitussin Ac Liquid Cup) 10 ml Q4H PRN PO COUGH; Start 11/20/18 at 17:30 Magnesium Hydroxide (Milk Of Mag) 30 ml DAILY PRN PO CONSTIPATION Last administered on 11/24/18at 08:45; Admin Dose 30 ML; Start 11/20/18 at 17:30 Simethicone (Mylicon) 80 mg Q8H PRN PO INDIGESTION; Start 11/20/18 at 23:30 Escitalopram Oxalate (Lexapro) 10 mg DAILY PO Last administered on 12/16/18 08:33; Admin Dose 10 MG; Start 11/24/18 at 19:00 Anastrozole (Arimidex) 1 mg DAILY PO Last administered on 12/16/18 08:35; Admin Dose 1 MG; Start 11/25/18 at 10:30 Carvedilol (Coreg) 3.125 mg BID PO Last administered on 12/16/18 08:34; Admin Dose 3.125 MG; Start 11/25/18 at 10:30 Docusate Sodium (Colace) 100 mg BID PO Last administered on 12/16/18 21:05; Admin Dose 100 MG; Start 11/25/18 at 10:30 Loratadine (Claritin) 10 mg DAILY PO Last administered on 12/16/18 08:33; Admin Dose 10 MG; Start 11/25/18 at 10:30 Pantoprazole (Protonix Tab) 40 mg AC BREAKFAST PO Last administered on 12/16/18 05:38; Admin Dose 40 MG; Start 11/25/18 at 10:30 Polyethylene Glycol (Miralax) 17 gm DAILY PO Last administered on 12/16/18 08:34; Admin Dose 17 GM; Start 11/25/18 at 10:30 Spironolactone (Aldactone) 50 mg DAILY PO Last administered on 12/16/18 08:34; Admin Dose 50 MG; Start 11/25/18 at 10:30 Diclofenac Sodium (Voltaren 1% Gel) 2 gm QID TP Last administered on 12/16/18 21:05; Admin Dose 2 GM; Start 11/27/18 at 22:00 Oxycodone HCl (Oxycontin) 20 mg BID PO Last administered on 7/1/19at 21:05; Admin Dose 20 MG; Start 12/01/18 at 09:00 Budesonide (Pulmicort (Neb)) 0.5 mg BID RESP THERAPY PRN HHN WHEEZING; Start 12/01/18 at 13:00 Zolpidem Tartrate (Ambien) 10 mg HS PRN PO INSOMNIA; Start 12/02/18 at 20:00 Ergocalciferol (Drisdol) 50,000 unit Q7D PO Last administered on 12/10/18at 16:21; Admin Dose 50,000 UNIT; Start 12/03/18 at 16:00 Ampicillin Sodium/ Sulbactam Sodium 100 ml @ 100 mls/hr Q6 IVPB Last administered on 12/16/18at 19:49; Admin Dose 100 MLS/HR; Start 12/12/18 at 17:00 DES DUNAWAY MD Dec 16, 2018 22:52
[2018-12-16] MEDS: morphine 2 MG INJ IV PRN (23:48)
[2018-12-17] VITALS: BP 111/65; PULSE 88; RESP 18
[2018-12-17] MEDS: METOLAZONE 2.5 MG TAB PO SCH ×2 (05:46→16:50)
[2018-12-17] MEDS: AMPICILLIN/SULB 3 GM/NS (PMX) 100 ML IVPB SCH ×4 (05:46→23:53)
[2018-12-17] MEDS: PANTOPRAZOLE (EC) 40 MG TAB PO SCH (05:47)
[2018-12-17 07:19] VITALS: BP 130/80; PULSE 93; RESP 18
[2018-12-17] MEDS: SPIRONOLACTONE 50 MG TAB PO SCH (08:53)
[2018-12-17] MEDS: BUMETANIDE 0.5 MG TAB PO SCH (08:54)
[2018-12-17] MEDS: LORATADINE 10 MG TAB PO SCH (08:54)
[2018-12-17] MEDS: ESCITALOPRAM 10 MG TAB PO SCH (08:54)
[2018-12-17] MEDS: POTASSIUM CHLORIDE (SR) 20 MEQ TAB PO SCH ×2 (08:55→20:49)
[2018-12-17] MEDS: DOCUSATE SODIUM 100 MG CAP PO SCH ×2 (08:55→20:50)
[2018-12-17] MEDS: oxyCODONE (CR) 20 MG TAB [oxyCONTIN] PO SCH ×2 (08:56→20:50)
[2018-12-17] MEDS: POLYETHYLENE GLYCOL 17 GM PACKET PO SCH (08:59)
[2018-12-17] MEDS: DICLOFENAC SODIUM 1% GEL 100 GM TUBE TP SCH ×4 (09:00→20:50)
[2018-12-17] MEDS: ANASTROZOLE 1 MG TAB PO SCH (09:12)
--- NOTE | 2018-12-17 09:20 | CONS ---
Consult Date/Type/Reason Admit Date/Time October 21, 2018 at 17:39 Initial Consult Date 10/21/18 Requesting Provider: RUSS JEROME MD Date/Time of Note DATE: 12/17/18 TIME: 09:18 Subjective Pt with increased pain at lower part of back - CXR done - awiting results -will monitor for now. ROS: No fever, no chills, no nausea, no vomiting, no diarrhea/constipation No recent weight changes No chest pain, no PND, no orthopnea + SOB increased No dizziness, blurred vision No thirst, no heat or cold intolerance Objective Vitals Vital Signs Date Temp Pulse Resp B/P (MAP) Pulse Ox O2 O2 Flow FiO2 Time Delivery Rate 12/17/18 97.8 93 18 130/80 96 Room Air 07:19 (97) Intake and Output 12/16/18 12/16/18 12/17/18 1515:00 23:00 07:00 IntakeIntake Total 440 ml 400 ml 200 ml BalanceBalance 440 ml 400 ml 200 ml Exam General: WN/WD/NAD, AOx 3 HEENT: Unicetric/atraumatic/EOMI (follows commands) NECK: JVD elevated, no thyromegaly Lymph: no lymphadenopathy HEART: regular with no S3, II/ systolic murmur at apex, coarse at base LUNGS: Coarse sounds ABD: soft, NT, ND, +BS : Intact Neuro: non focal SKIN: chronic changes EXT: trace edema Results/Medications Result Diagram: 12/14/18 0453 12/14/18 0453 Results 24 hrs General: WN/WD/NAD, AOx 3 HEENT: Unicetric/atraumatic/EOMI (follow commands) NECK: JVD elevated, no thyromegaly Lymph: no lymphadenopathy HEART: regular with no S3, II/ systolic murmur at apex, PMI L LUNGS: Coarse sounds - more ABD: soft, NT, ND, +BS : Intact Neuro: non focal SKIN: chronic changes EXT: trace edema Home Meds Reported Medications Tuberculin,Purif.prot.deriv. (Tubersol) 5 Tub Unit/0.1 Ml Vial, 0.1 ML ID, VIAL INJECT QHS EVERY 10 DAYS FOR PPD SCREENING FOR 11 DAYS READ IN 48 HOURS,IF NEGATIVE 2STEP IN 7 DAYS FROM FIRST DOSE. 10/21/18 Acetaminophen* (Tylenol*) 325 Mg Tablet, 650 MG PO Q4H PRN for PAIN LEVEL 1- 03/27, TAB 10/21/18 Spironolactone* (Aldactone*) 50 Mg Tablet, 50 MG PO DAILY, #30 TAB HOLD FOR SBP<110 10/21/18 Simethicone* (Mylicon*) 80 Mg Tab, 80 MG PO Q8H, TAB 10/21/18 Olopatadine* (Patanol* Ophth) 0.1% - 5 Ml Drops, 1 DROP BOTH EYES BID, EA 10/21/18 Hydrocodone/Acetaminophen ([place] 10-325 Tablet) 1 Each Tablet, 1 EACH PO Q4H, TAB 10/21/18 Loratadine* (Loratadine*) 10 Mg Tablet, 10 MG PO DAILY for FOR 3 MONTHS, #30 TAB 10/21/18 Lidocaine (Lidocaine) 1 Each Adh..patch, 1 EACH TP DAILY 10/21/18 Ipratropium-Albuterol (Ipratropium-Albuterol) 0.5-3 Mg/3 Ml Ampul.neb, 3 ML INHALATION Q8H, #30 VIAL 10/21/18 Furosemide* (Furosemide*) 40 Mg Tablet, 40 MG PO BID, TAB HOLD FOR SBP<110 10/21/18 Na Phos,M-B/Na Phos,Di-Ba (Fleet Enema Extra) Unknown Strength Enema, 1 APPLIC RC NEEDED for CONSTIPATION, ENEMA 10/21/18 Bisacodyl (Dulcolax) 10 Mg Supp.rect, 10 MG RC NEEDED, SUPP.RECT 10/21/18 Potassium Chloride* (Potassium Chloride*) 20 Meq Tablet.er, 20 MEQ PO DAILY, TAB.SA 09/09/18 Pantoprazole* (Pantoprazole*) 40 Mg Tablet.dr, 40 MG PO AC BREAKFAST, TAB 08/22/18 Oxycodone Hcl* (Oxycontin*) 20 Mg Tab.er.12h, 20 MG PO Q12, TAB 08/22/18 Amlodipine Besylate* (Norvasc*) 5 Mg Tablet, 5 MG PO DAILY, TAB HOLD FOR SBP <110. 08/22/18 Polyethylene Glycol* (Miralax*) 17 Gm Powd.pack, 17 GM PO DAILY, #60 PACKET 08/22/18 Magnesium Hydroxide* (Milk Of Magnesia*) 400 Mg/5 Ml Oral.susp, 30 ML PO DAILY, ML 08/22/18 Escitalopram Oxalate* (Lexapro*) 10 Mg Tablet, 10 MG PO DAILY, #30 TAB 08/22/18 Docusate Sodium* (Colace*) 100 Mg Capsule, 100 MG PO BID, #60 CAP 08/22/18 Carvedilol* (Carvedilol*) 3.125 Mg Tablet, 3.125 MG PO BID, #60 TAB HOLD FOR SBP <110 OR GA <60. GIVE WITH FOOD. 08/22/18 Benazepril Hcl* (Benazepril Hcl*) 5 Mg Tablet, 5 MG PO DAILY, #60 TAB HOLD FOR SBP <110. 08/22/18 Anastrozole* (Arimidex*) 1 Mg Tablet, 1 MG PO DAILY, #30 TAB 08/22/18 Medications Current Medications Morphine Sulfate (morphine) 2 mg Q4H PRN IV SEVERE PAIN LEVEL 7-10 Last administered on 12/16/18at 23:48; Admin Dose 2 MG; Start 10/22/18 at 01:30 Phenol (Cepastat Lozenge) 1 lozenge Q1H PRN MT sore throat Last administered on 10/31/18at 18:34; Admin Dose 1 LOZENGE; Start 10/27/18 at 21:30 Metolazone (Zaroxolyn) 2.5 mg BID@0530,1730 PO Last administered on 12/17/18at 05:46; Admin Dose 2.5 MG; Start 11/01/18 at 05:30 Enoxaparin Sodium (Lovenox) 40 mg DAILY SC Last administered on 11/23/18at 09:02; Admin Dose 40 MG; Start 11/02/18 at 09:00; Status Hold Ibuprofen (Motrin) 400 mg Q6H PRN PO MILD PAIN(1-3) OR TEMP>38C Last administered on 12/09/18at 02:07; Admin Dose 400 MG; Start 11/07/18 at 12:20 Potassium Chloride (Klor-Con 20) 20 meq BID PO Last administered on 12/17/18at 08:55; Admin Dose 20 MEQ; Start 11/11/18 at 09:00 Ondansetron HCl (Zofran Inj) 4 mg Q6H PRN IV NAUSEA AND/OR VOMITING Last administered on 11/19/18 20:21; Admin Dose 4 MG; Start 11/19/18 at 20:30 Bumetanide (Bumex) 0.5 mg DAILY PO Last administered on 12/17/18 08:54; Admin Dose 0.5 MG; Start 11/20/18 at 09:00 Diphenhydramine HCl (Benadryl) 25 mg Q8H PRN PO ITCHING Last administered on 12/15/18 22:26; Admin Dose 25 MG; Start 11/20/18 at 14:00 Bisacodyl (Dulcolax Supp) 10 mg Q8H PRN [place] CONSTIPATION; Start 11/20/18 at 17:30 Guaifenesin/ Codeine Phosphate (Robitussin Ac Liquid Cup) 10 ml Q4H PRN PO COUGH; Start 11/20/18 at 17:30 Magnesium Hydroxide (Milk Of Mag) 30 ml DAILY PRN PO CONSTIPATION Last administered on 11/24/18 08:45; Admin Dose 30 ML; Start 11/20/18 at 17:30 Simethicone (Mylicon) 80 mg Q8H PRN PO INDIGESTION; Start 11/20/18 at 23:30 Escitalopram Oxalate (Lexapro) 10 mg DAILY PO Last administered on 12/17/18 08:54; Admin Dose 10 MG; Start 11/24/18 at 19:00 Anastrozole (Arimidex) 1 mg DAILY PO Last administered on 12/17/18 09:12; Admin Dose 1 MG; Start 11/25/18 at 10:30 Carvedilol (Coreg) 3.125 mg BID PO Last administered on 12/17/18 08:55; Admin Dose 3.125 MG; Start 11/25/18 at 10:30 Docusate Sodium (Colace) 100 mg BID PO Last administered on 12/17/18 08:55; Admin Dose 100 MG; Start 11/25/18 at 10:30 Loratadine (Claritin) 10 mg DAILY PO Last administered on 12/17/18 08:54; Admin Dose 10 MG; Start 11/25/18 at 10:30 Pantoprazole (Protonix Tab) 40 mg AC BREAKFAST PO Last administered on 12/17/18 05:47; Admin Dose 40 MG; Start 11/25/18 at 10:30 Polyethylene Glycol (Miralax) 17 gm DAILY PO Last administered on 12/17/18 08:59; Admin Dose 17 GM; Start 11/25/18 at 10:30 Spironolactone (Aldactone) 50 mg DAILY PO Last administered on 12/17/18 08:53; Admin Dose 50 MG; Start 11/25/18 at 10:30 Diclofenac Sodium (Voltaren 1% Gel) 2 gm QID TP Last administered on 12/17/18 09:00; Admin Dose 2 GM; Start 11/27/18 at 22:00 Oxycodone HCl (Oxycontin) 20 mg BID PO Last administered on 12/17/18 08:56; Admin Dose 20 MG; Start 12/01/18 at 09:00 Budesonide (Pulmicort (Neb)) 0.5 mg BID RESP THERAPY PRN HHN WHEEZING; Start 12/01/18 at 13:00 Zolpidem Tartrate (Ambien) 10 mg HS PRN PO INSOMNIA Last administered on 12/17/18 00:40; Admin Dose 5 MG; Start 12/02/18 at 20:00 Ergocalciferol (Drisdol) 50,000 unit Q7D PO Last administered on 12/10/18 16:21; Admin Dose 50,000 UNIT; Start 12/03/18 at 16:00 Ampicillin Sodium/ Sulbactam Sodium 100 ml @ 100 mls/hr Q6 IVPB Last administered on 12/17/18 05:46; Admin Dose 100 MLS/HR; Start 12/12/18 at 17:00 Assessment/Plan Hospital Course (Demo Recall) 1. Congestive heart failure exacerbation would be diastolic, acute on chronic by most recent echo.-now s/p echo this admit with EF 60/small effusion - better now, responding to diuresis. CHF better, but suspect effusion is re-accumulated - stable. 2. Abnormal electrocardiogram with low voltage, rule out pericardial effusion - stable, no signs of tamponade. Treated. Off tele now. NO intervention planned. Stable. 3. Hypertension-currently borderline hypotension - treated with meds. BP stable overall. Tolerated Rx well. 4. Metastatic breast carcinoma- responded to chemo per Dr. Kleynberg - still po or prognosis. Traeted - hair beginning to grow back. Last effusion drainage a week ago - radiology to follow again. DR. Fernández Rx 5. History of pathologic fractures of the leg, status post open reduction and internal fixation - pain controlled. 6. Anemia - Rx per hem-onc team. Rx as needed. 7. Increased BNP consistent with patient's congestive heart failure. 8. Pericardial effusion-small by echo - on antin-Bx 8. SOB - now with increased Sx - awaiting CXR. EMILY NELSON MD Dec 17, 2018 09:20
--- NOTE | 2018-12-17 12:10 | CONS ---
Assessment/Plan Assessment/Plan Hospital Course (Demo Recall) Feels better no fevers Antimicrobials: Unasyn Indwelling: R chest Port-A-Cath 05/29/18 Physical examination: Obese well-developed middle-aged British-speaking woman who is alert in no distress. Head atraumatic normocephalic sclera nonicteric vehicle mucosa pink. Neck is supple chest rise symmetrical breath sounds diminished bases. Heart: S1-S2. Abdomen soft bowel sounds present extremities without cyanosis, left upper extremity with edema Assessment: 1. Bilateral mastoiditis, left more than the right 2. Metastatic breast cancer 3. Status post R hip arthroplasty due to lytic fracture 4. Status post recent fall with left wrist fracture that is being treated conservatively Plan: Stable continue antibiotics to complete 2 weeks, may change to PO Augmentin upon dc, oncology rec-s Consultation Date/Type/Reason Admit Date/Time October 21, 2018 at 17:39 Initial Consult Date 11/21/18 Type of Consult id Requesting Provider: RUSS EJROME MD Date/Time of Note DATE: 12/17/18 TIME: 12:09 Exam/Review of Systems Exam Vitals Vital Signs Date Temp Pulse Resp B/P (MAP) Pulse Ox O2 O2 Flow FiO2 Time Delivery Rate 12/17/18 97.8 93 18 130/80 96 Room Air 07:19 (97) Intake and Output 12/16/18 12/16/18 12/17/18 1515:00 23:00 07:00 IntakeIntake Total 440 ml 400 ml 200 ml BalanceBalance 440 ml 400 ml 200 ml Results Result Diagram: 12/14/18 0453 12/14/18 0453 Medications Medication Current Medications Morphine Sulfate (morphine) 2 mg Q4H PRN IV SEVERE PAIN LEVEL 7-10 Last administered on 12/16/18at 23:48; Admin Dose 2 MG; Start 10/22/18 at 01:30 Phenol (Cepastat Lozenge) 1 lozenge Q1H PRN [place] sore throat Last administered on 10/31/18at 18:34; Admin Dose 1 LOZENGE; Start 10/27/18 at 21:30 Metolazone (Zaroxolyn) 2.5 mg BID@3830,2790 PO Last administered on 12/17/18at 05:46; Admin Dose 2.5 MG; Start 11/01/18 at 05:30 Enoxaparin Sodium (Lovenox) 40 mg DAILY SC Last administered on 11/23/18 09:02; Admin Dose 40 MG; Start 11/02/18 at 09:00; Status Hold Ibuprofen (Motrin) 400 mg Q6H PRN PO MILD PAIN(1-3) OR TEMP>38C Last administered on 12/09/18 02:07; Admin Dose 400 MG; Start 11/07/18 at 12:20 Potassium Chloride (Klor-Con 20) 20 meq BID PO Last administered on 12/17/18 08:55; Admin Dose 20 MEQ; Start 11/11/18 at 09:00 Ondansetron HCl (Zofran Inj) 4 mg Q6H PRN IV NAUSEA AND/OR VOMITING Last administered on 11/19/18 20:21; Admin Dose 4 MG; Start 11/19/18 at 20:30 Bumetanide (Bumex) 0.5 mg DAILY PO Last administered on 12/17/18 08:54; Admin Dose 0.5 MG; Start 11/20/18 at 09:00 Diphenhydramine HCl (Benadryl) 25 mg Q8H PRN PO ITCHING Last administered on 12/15/18 22:26; Admin Dose 25 MG; Start 11/20/18 at 14:00 Bisacodyl (Dulcolax Supp) 10 mg Q8H PRN [place] CONSTIPATION; Start 11/20/18 at 17:30 Guaifenesin/ Codeine Phosphate (Robitussin Ac Liquid Cup) 10 ml Q4H PRN PO COUGH; Start 11/20/18 at 17:30 Magnesium Hydroxide (Milk Of Mag) 30 ml DAILY PRN PO CONSTIPATION Last administered on 11/24/18 08:45; Admin Dose 30 ML; Start 11/20/18 at 17:30 Simethicone (Mylicon) 80 mg Q8H PRN PO INDIGESTION; Start 11/20/18 at 23:30 Escitalopram Oxalate (Lexapro) 10 mg DAILY PO Last administered on 12/17/18 08:54; Admin Dose 10 MG; Start 11/24/18 at 19:00 Anastrozole (Arimidex) 1 mg DAILY PO Last administered on 12/17/18 09:12; Admin Dose 1 MG; Start 11/25/18 at 10:30 Carvedilol (Coreg) 3.125 mg BID PO Last administered on 12/17/18 08:55; Admin Dose 3.125 MG; Start 11/25/18 at 10:30 Docusate Sodium (Colace) 100 mg BID PO Last administered on 12/17/18 08:55; Admin Dose 100 MG; Start 11/25/18 at 10:30 Loratadine (Claritin) 10 mg DAILY PO Last administered on 12/17/18 08:54; Admin Dose 10 MG; Start 11/25/18 at 10:30 Pantoprazole (Protonix Tab) 40 mg AC BREAKFAST PO Last administered on 12/17/18 05:47; Admin Dose 40 MG; Start 11/25/18 at 10:30 Polyethylene Glycol (Miralax) 17 gm DAILY PO Last administered on 12/17/18 08:59; Admin Dose 17 GM; Start 11/25/18 at 10:30 Spironolactone (Aldactone) 50 mg DAILY PO Last administered on 12/17/18 08:53; Admin Dose 50 MG; Start 11/25/18 at 10:30 Diclofenac Sodium (Voltaren 1% Gel) 2 gm QID TP Last administered on 12/17/18 09:00; Admin Dose 2 GM; Start 11/27/18 at 22:00 Oxycodone HCl (Oxycontin) 20 mg BID PO Last administered on 12/17/18 08:56; Admin Dose 20 MG; Start 12/01/18 at 09:00 Budesonide (Pulmicort (Neb)) 0.5 mg BID RESP THERAPY PRN HHN WHEEZING; Start 12/01/18 at 13:00 Zolpidem Tartrate (Ambien) 10 mg HS PRN PO INSOMNIA Last administered on 12/17/18 00:40; Admin Dose 5 MG; Start 12/02/18 at 20:00 Ergocalciferol (Drisdol) 50,000 unit Q7D PO Last administered on 12/10/18 16:21; Admin Dose 50,000 UNIT; Start 12/03/18 at 16:00 Ampicillin Sodium/ Sulbactam Sodium 100 ml @ 100 mls/hr Q6 IVPB Last administered on 12/17/18 05:46; Admin Dose 100 MLS/HR; Start 12/12/18 at 17:00 YUAN ROMERO NP Dec 17, 2018 12:10
[2018-12-17 14:49] VITALS: BP 123/75; PULSE 78; RESP 17
--- NOTE | 2018-12-17 16:00 | PN ---
Date/Time of Note Date/Time of Note DATE: 12/17/18 TIME: 15:57 Assessment/Plan VTE Prophylaxis Risk score (from Ns)>0 risk: 6 SCD applied (from Nsg): Yes Pharmacological prophylaxis: LMWH Lines/Catheters IV Catheter Type (from Nrsg): Central Line Central line still needed: Yes Urinary Cath still in place: No Assessment/Plan Hospital Course Patient denies any shortness of breath, denies chest pain states improvement in left ear pain. Chest x-ray from today noted, decreased pleural effusion. Assessment/Plan -Bilateral mastoiditis, left more than the right. Continue Unasyn. Dr Espinosa is following in ID consultation. -Metastatic left breast cancer with pulmonary, liver, and bone involvement. S/p chemo which is on hold now. Continued on Arimidex. Dr. Fernández is following in oncology consultation. -Recurrent pleural effusions requiring bilateral thoracentesis -Diastolic congestive heart failure, patient is currently on Aldactone, Bumex, and Coreg. Dr. Hurtado is following in cardiology consultation. -Acute on chronic pain, continue OxyContin twice daily and morphine as needed -Status post R hip arthroplasty due to lytic fracture -Status post recent fall with left wrist fracture that is being treated conservatively -Left lower extremity lymphedema -Obesity Further recommendations based on clinical course. Plan of care discussed with Dr. Peñaloza. Result Diagram: 12/14/1845212/14/18452 Exam/Review of Systems Exam Vitals Vital Signs Date Temp Pulse Resp B/P (MAP) Pulse Ox O2 O2 Flow FiO2 Time Delivery Rate 12/17/18 97.5 78 17 123/75 98 14:49 (91) 12/17/18 Room Air 07:19 Intake and Output 12/16/18 12/16/18 12/17/18 1515:00 23:00 07:00 IntakeIntake Total 440 ml 400 ml 200 ml BalanceBalance 440 ml 400 ml 200 ml Exam Constitutional: alert, oriented Respiratory: clear to auscultation Cardiovascular: nl pulses Gastrointestinal: soft, non-tender Extremities: edema Neurological: nl mental status Skin: nl turgor Additional Comments Right chest Port-A-Cath Medications Medication Current Medications Morphine Sulfate (morphine) 2 mg Q4H PRN IV SEVERE PAIN LEVEL 7-10 Last administered on 12/16/18at 23:48; Admin Dose 2 MG; Start 10/22/18 at 01:30 Phenol (Cepastat Lozenge) 1 lozenge Q1H PRN MT sore throat Last administered on 10/31/18 18:34; Admin Dose 1 LOZENGE; Start 10/27/18 at 21:30 Metolazone (Zaroxolyn) 2.5 mg BID@0530,1730 PO Last administered on 12/17/18 05:46; Admin Dose 2.5 MG; Start 11/01/18 at 05:30 Enoxaparin Sodium (Lovenox) 40 mg DAILY SC Last administered on 11/23/18 09:02; Admin Dose 40 MG; Start 11/02/18 at 09:00; Status Hold Ibuprofen (Motrin) 400 mg Q6H PRN PO MILD PAIN(1-3) OR TEMP>38C Last administ ered on 12/09/18 02:07; Admin Dose 400 MG; Start 11/07/18 at 12:20 Potassium Chloride (Klor-Con 20) 20 meq BID PO Last administered on 12/17/18 08:55; Admin Dose 20 MEQ; Start 11/11/18 at 09:00 Ondansetron HCl (Zofran Inj) 4 mg Q6H PRN IV NAUSEA AND/OR VOMITING Last administered on 11/19/18 20:21; Admin Dose 4 MG; Start 11/19/18 at 20:30 Bumetanide (Bumex) 0.5 mg DAILY PO Last administered on 12/17/18 08:54; Admin Dose 0.5 MG; Start 11/20/18 at 09:00 Diphenhydramine HCl (Benadryl) 25 mg Q8H PRN PO ITCHING Last administered on 12/15/18 22:26; Admin Dose 25 MG; Start 11/20/18 at 14:00 Bisacodyl (Dulcolax Supp) 10 mg Q8H PRN [place] CONSTIPATION; Start 11/20/18 at 17:30 Guaifenesin/ Codeine Phosphate (Robitussin Ac Liquid Cup) 10 ml Q4H PRN PO COUGH; Start 11/20/18 at 17:30 Magnesium Hydroxide (Milk Of Mag) 30 ml DAILY PRN PO CONSTIPATION Last administered on 11/24/18 08:45; Admin Dose 30 ML; Start 11/20/18 at 17:30 Simethicone (Mylicon) 80 mg Q8H PRN PO INDIGESTION; Start 11/20/18 at 23:30 Escitalopram Oxalate (Lexapro) 10 mg DAILY PO Last administered on 12/17/18 08:54; Admin Dose 10 MG; Start 11/24/18 at 19:00 Anastrozole (Arimidex) 1 mg DAILY PO Last administered on 12/17/18 09:12; Admin Dose 1 MG; Start 11/25/18 at 10:30 Carvedilol (Coreg) 3.125 mg BID PO Last administered on 12/17/18 08:55; Admin Dose 3.125 MG; Start 11/25/18 at 10:30 Docusate Sodium (Colace) 100 mg BID PO Last administered on 12/17/18 08:55; Admin Dose 100 MG; Start 11/25/18 at 10:30 Loratadine (Claritin) 10 mg DAILY PO Last administered on 12/17/18 08:54; Admin Dose 10 MG; Start 11/25/18 at 10:30 Pantoprazole (Protonix Tab) 40 mg AC BREAKFAST PO Last administered on 12/17/18 05:47; Admin Dose 40 MG; Start 11/25/18 at 10:30 Polyethylene Glycol (Miralax) 17 gm DAILY PO Last administered on 12/17/18 08:59; Admin Dose 17 GM; Start 11/25/18 at 10:30 Spironolactone (Aldactone) 50 mg DAILY PO Last administered on 12/17/18 08:53; Admin Dose 50 MG; Start 11/25/18 at 10:30 Diclofenac Sodium (Voltaren 1% Gel) 2 gm QID TP Last administered on 12/17/18 09:00; Admin Dose 2 GM; Start 11/27/18 at 22:00 Oxycodone HCl (Oxycontin) 20 mg BID PO Last administered on 12/17/18 08:56; Admin Dose 20 MG; Start 12/01/18 at 09:00 Budesonide (Pulmicort (Neb)) 0.5 mg BID RESP THERAPY PRN HHN WHEEZING; Start 12/01/18 at 13:00 Zolpidem Tartrate (Ambien) 10 mg HS PRN PO INSOMNIA Last administered on 12/17/18 00:40; Admin Dose 5 MG; Start 12/02/18 at 20:00 Ergocalciferol (Drisdol) 50,000 unit Q7D PO Last administered on 12/10/18at 16:21; Admin Dose 50,000 UNIT; Start 12/03/18 at 16:00 Ampicillin Sodium/ Sulbactam Sodium 100 ml @ 100 mls/hr Q6 IVPB Last administered on 12/17/18at 12:09; Admin Dose 100 MLS/HR; Start 12/12/18 at 17:00 YEISON SOLIZ Dec 17, 2018 16:00
[2018-12-17] MEDS: ERGOCALCIFEROL 50,000 UNIT CAP PO SCH (16:50)
[2018-12-17 19:53] VITALS: BP 116/60; PULSE 86; RESP 18
--- NOTE | 2018-12-17 22:45 | CONS ---
Assessment/Plan Assessment/Plan Hospital Course (Demo Recall) METASTATIC BREAST CANCER WITH PRIMARY ADENOCARCINOMA IN the left breast. MULTIPLE BONY METS, PULMONARY METS, LIVER METS CHEMO ON HOLD PT HAS A VERY GOOD RESPONSE TO CHEMO AND AI CONT AI FOR NOW CT ABD FOR RESTAGING 08.27.18, 12.04.18 - noted , stable POST aredia Leukopenia- post chemo, FLUCTUATING post NEUPOGEN monitor closely post Neutropenia with occasional fever and chills. - resolved Anemia chronic disease SOB PLEURAL EFFUSIONS, NEG CYTOLOGY POST thoracentesis Fluid overload diuretic cardiology F-UP Severe pain in the interscapular and lumbar sacral area most probably metastatic lesion possible femoral fracture. pathologic fracture of T9 with 60% of loss of height. Bony pain with multiple bony mets post XRT d/w dr Ocampo HYPOKALEMIA- REPLACED Obesity. Weight loss 60 pounds during the last 2 years COUGH, Upper respiratory infection pharyngitis with dry cough. POST ATB PMS. Myopia. Anxiety disorder. Claustrophobia. Posttraumatic stress disorder. Pain in the left forearm with a history of fracture of ulna and radius. Tachycardia Hypoxemia at night marginal improved after 2 L of nasal cannula oxygen. Deconditioning Pain syndrome. Today the most painful zone is in the right hip area. X-ray did not show any fractures. Hyponatremia- resolved Hypoalbuminemia Right sided cp after catheter insertion and correction less discomfort. Decreased edema both lower extremities with hypotension-improving Swelling of the left forearm-persist. Consultation Date/Type/Reason Admit Date/Time October 21, 2018 at 17:39 Initial Consult Date 10/21/18 Type of Consult [facility] Requesting Provider: RUSS JEROME MD Date/Time of Note DATE: 12/17/18 TIME: 22:44 Exam/Review of Systems Exam Vitals Vital Signs Date Temp Pulse Resp B/P (MAP) Pulse Ox O2 O2 Flow FiO2 Time Delivery Rate 12/17/18 97.8 86 18 116/60 92 Room Air 19:53 (78) Intake and Output 12/16/18 12/16/18 12/17/18 1515:00 23:00 07:00 IntakeIntake Total 440 ml 400 ml 200 ml BalanceBalance 440 ml 400 ml 200 ml Exam Constitutional: alert, oriented, well developed, distress, frail; No non-verbal, No obese, No other Psych: nl mood/affect, anxiety, depression; No no complaints, No confusion, No suicidal, No other Head: normocephalic, atraumatic; No lacerations, No hematomas, No other Eyes: EOMI, nl lids, PERRL; No nl conjunctiva, No nl sclera, No icteric, No fundi, disc, No other ENMT: nl lips & teeth, tympanic membranes; No nl external ears & nose, No nl nasal mucosa & septum, No mucosa pink and moist, No intubated, No other Neck: jvd, bruits; No supple, No non-tender, No masses, No thyromegaly, No nuchal rigidity, No other Respiratory: clear to auscultation (Upper parts with pleural friction rub lower parts.), congested cough, diminished breath sounds; No normal air movement, No crackles/rales, No intercostal retraction, No labored breathing, No respirations, No tactile fremitus, No wheezing, No other Cardiovascular: regular rate and rhythm, edema, systolic murmur; No nl pulses, No bruits, No diastolic murmur, No gallop, No irregular rhythm, No jugular venous distention (JVD), No murmurs/extra sounds, No rub, No S3, No S4, No other Gastrointestinal: soft, nl liver, spleen, bowel sounds; No non-tender, No ascites, No distended, No firm, No hepatomegaly, No mass, No rebound or guarding, No splenomegaly, No surgical scars, No tender, No other Musculoskeletal: joint tenderness, muscle tone, muscle weakness; No nl extremities to inspection, No nl gait and stance, No range of motion, No spine non-tender, No swelling, No other Extremities: No normal pulses, No calf tenderness, No cyanosis, No clubbing, No edema, No pitting pedal edema, No palpable cord, No tenderness, No other Neurological: [employer]ION [employer]URE [employer] 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; No nl mental status, No nl speech, No nl strength, No confused, No DTR's symmetric, No focal weakness, No lethargic, No numbness, No reflexes, No unresponsive, No other Skin: No nl turgor, No rash or lesions, No diaphoresis, No ecchymosis, No lac eration, No puncture, No other Lymph: No nl lymph nodes, No enlarged, No nontender, No other Results Result Diagram: 12/14/18 0453 12/14/18 0453 Medications Medication Current Medications Morphine Sulfate (morphine) 2 mg Q4H PRN IV SEVERE PAIN LEVEL 7-10 Last administered on 12/16/18 23:48; Admin Dose 2 MG; Start 10/22/18 at 01:30 Phenol (Cepastat Lozenge) 1 lozenge Q1H PRN MT sore throat Last administered on 10/31/18 18:34; Admin Dose 1 LOZENGE; Start 10/27/18 at 21:30 Metolazone (Zaroxolyn) 2.5 mg BID@0530,1730 PO Last administered on 12/17/18 16:50; Admin Dose 2.5 MG; Start 11/01/18 at 05:30 Enoxaparin Sodium (Lovenox) 40 mg DAILY SC Last administered on 11/23/18 09:02; Admin Dose 40 MG; Start 11/02/18 at 09:00; Status Hold Ibuprofen (Motrin) 400 mg Q6H PRN PO MILD PAIN(1-3) OR TEMP>38C Last administered on 12/09/18 02:07; Admin Dose 400 MG; Start 11/07/18 at 12:20 Potassium Chloride (Klor-Con 20) 20 meq BID PO Last administered on 12/17/18 20:49; Admin Dose 20 MEQ; Start 11/11/18 at 09:00 Ondansetron HCl (Zofran Inj) 4 mg Q6H PRN IV NAUSEA AND/OR VOMITING Last administered on 11/19/18 20:21; Admin Dose 4 MG; Start 11/19/18 at 20:30 Bumetanide (Bumex) 0.5 mg DAILY PO Last administered on 12/17/18 08:54; Admin Dose 0.5 MG; Start 11/20/18 at 09:00 Diphenhydramine HCl (Benadryl) 25 mg Q8H PRN PO ITCHING Last administered on 12/15/18 22:26; Admin Dose 25 MG; Start 11/20/18 at 14:00 Bisacodyl (Dulcolax Supp) 10 mg Q8H PRN [place] CONSTIPATION; Start 11/20/18 at 17:30 Guaifenesin/ Codeine Phosphate (Robitussin Ac Liquid Cup) 10 ml Q4H PRN PO COUGH; Start 11/20/18 at 17:30 Magnesium Hydroxide (Milk Of Mag) 30 ml DAILY PRN PO CONSTIPATION Last administered on 11/24/18 08:45; Admin Dose 30 ML; Start 11/20/18 at 17:30 Simethicone (Mylicon) 80 mg Q8H PRN PO INDIGESTION; Start 11/20/18 at 23:30 Escitalopram Oxalate (Lexapro) 10 mg DAILY PO Last administered on 12/17/18 08:54; Admin Dose 10 MG; Start 11/24/18 at 19:00 Anastrozole (Arimidex) 1 mg DAILY PO Last administered on 12/17/18 09:12; Admin Dose 1 MG; Start 11/25/18 at 10:30 Carvedilol (Coreg) 3.125 mg BID PO Last administered on 12/17/18 20:50; Admin Dose 3.125 MG; Start 11/25/18 at 10:30 Docusate Sodium (Colace) 100 mg BID PO Last administered on 12/17/18 20:50; Admin Dose 100 MG; Start 11/25/18 at 10:30 Loratadine (Claritin) 10 mg DAILY PO Last administered on 12/17/18 08:54; Admin Dose 10 MG; Start 11/25/18 at 10:30 Pantoprazole (Protonix Tab) 40 mg AC BREAKFAST PO Last administered on 12/17/18 05:47; Admin Dose 40 MG; Start 11/25/18 at 10:30 Polyethylene Glycol (Miralax) 17 gm DAILY PO Last administered on 12/17/18 08:59; Admin Dose 17 GM; Start 11/25/18 at 10:30 Spironolactone (Aldactone) 50 mg DAILY PO Last administered on 12/17/18 08:53; Admin Dose 50 MG; Start 11/25/18 at 10:30 Diclofenac Sodium (Voltaren 1% Gel) 2 gm QID TP Last administered on 12/17/18 20:50; Admin Dose 2 GM; Start 11/27/18 at 22:00 Oxycodone HCl (Oxycontin) 20 mg BID PO Last administered on 12/17/18 20:50; Admin Dose 20 MG; Start 12/01/18 at 09:00 Budesonide (Pulmicort (Neb)) 0.5 mg BID RESP THERAPY PRN HHN WHEEZING; Start 12/01/18 at 13:00 Zolpidem Tartrate (Ambien) 10 mg HS PRN PO INSOMNIA Last administered on 12/17/18at 00:40; Admin Dose 5 MG; Start 12/02/18 at 20:00 Ergocalciferol (Drisdol) 50,000 unit Q7D PO Last administered on 12/17/18at 16:50; Admin Dose 50,000 UNIT; Start 12/03/18 at 16:00 Ampicillin Sodium/ Sulbactam Sodium 100 ml @ 100 mls/hr Q6 IVPB Last administered on 12/17/18at 18:14; Admin Dose 100 MLS/HR; Start 12/12/18 at 17:00 DES DUNAWAY MD Dec 17, 2018 22:45
[2018-12-17] MEDS: morphine 2 MG INJ IV PRN (23:54)
[2018-12-18 01:16] VITALS: BP 105/63; PULSE 87; RESP 18
[2018-12-18] MEDS: PANTOPRAZOLE (EC) 40 MG TAB PO SCH (05:56)
[2018-12-18] MEDS: AMPICILLIN/SULB 3 GM/NS (PMX) 100 ML IVPB SCH ×3 (05:56→18:18)
[2018-12-18] MEDS: METOLAZONE 2.5 MG TAB PO SCH ×2 (05:58→18:23)
[2018-12-18 08:23] VITALS: BP 107/52; PULSE 85; RESP 17
[2018-12-18] MEDS: oxyCODONE (CR) 20 MG TAB [oxyCONTIN] PO SCH ×2 (09:27→20:37)
[2018-12-18] MEDS: POLYETHYLENE GLYCOL 17 GM PACKET PO SCH (09:27)
[2018-12-18] MEDS: BUMETANIDE 0.5 MG TAB PO SCH (09:27)
[2018-12-18] MEDS: SPIRONOLACTONE 50 MG TAB PO SCH (09:27)
[2018-12-18] MEDS: DOCUSATE SODIUM 100 MG CAP PO SCH ×2 (09:27→20:36)
[2018-12-18] MEDS: LORATADINE 10 MG TAB PO SCH (09:27)
[2018-12-18] MEDS: ESCITALOPRAM 10 MG TAB PO SCH (09:27)
[2018-12-18] MEDS: POTASSIUM CHLORIDE (SR) 20 MEQ TAB PO SCH ×2 (09:30→20:37)
[2018-12-18] MEDS: DICLOFENAC SODIUM 1% GEL 100 GM TUBE TP SCH ×4 (09:30→20:40)
[2018-12-18] MEDS: ANASTROZOLE 1 MG TAB PO SCH (09:31)
--- NOTE | 2018-12-18 12:30 | PN ---
Date/Time of Note Date/Time of Note DATE: 12/18/18 TIME: 12:28 Assessment/Plan VTE Prophylaxis Risk score (from Nsg)>0 risk: 7 SCD applied (from Nsg): Yes Pharmacological prophylaxis: LMWH Lines/Catheters IV Catheter Type (from Nrsg): PORT A CATH Urinary Cath still in place: No Assessment/Plan Hospital Course Patient denies any shortness of breath, denies chest pain, denies nausea vom iting, tolerates diet well. Patient states improvement in left ear pain. Assessment/Plan -Bilateral mastoiditis, left more than the right. Continue Unasyn. Dr Espinosa is following in ID consultation. -Metastatic left breast cancer with pulmonary, liver, and bone involvement. S/p chemo which is on hold now. Continued on Arimidex. Dr. Fernández is following in oncology consultation. -Recurrent pleural effusions requiring bilateral thoracentesis -Diastolic congestive heart failure, patient is currently on Aldactone, Bumex, and Coreg. Dr. Hurtado is following in cardiology consultation. -Acute on chronic pain, continue OxyContin twice daily and morphine as needed -Status post R hip arthroplasty due to lytic fracture -Status post recent fall with left wrist fracture that is being treated conservatively -Left lower extremity lymphedema -Obesity Further recommendations based on clinical course. Plan of care discussed with Dr. Peñaloza. Result Diagram: 12/14/18 0453 12/18/18 0432 Results 24hrs Laboratory Tests Test 12/18/18 04:32 Sodium Level 138 Potassium Level 4.0 Chloride Level 100 Carbon Dioxide Level 31 Anion Gap 7 Blood Urea Nitrogen 29 H Creatinine 0.86 Est Glomerular Filtrat Rate mL/min > 60 Glucose Level 133 Calcium Level 8.0 L Exam/Review of Systems Exam Vitals Vital Signs Date Temp Pulse Resp B/P (MAP) Pulse Ox O2 O2 Flow FiO2 Time Delivery Rate 12/18/18 97.8 85 17 107/52 95 Room Air 08:23 (70) Intake and Output 12/17/18 12/17/18 12/18/18 1515:00 23:00 07:00 IntakeIntake Total 600 ml 860 ml 700 ml BalanceBalance 600 ml 860 ml 700 ml Exam Constitutional: alert, oriented Respiratory: clear to auscultation Cardiovascular: nl pulses Gastrointestinal: soft, non-tender Extremities: edema Neurological: nl mental status Skin: nl turgor Additional Comments Right chest Port-A-Cath Results Results 24hrs Laboratory Tests Test 12/18/18 04:32 Sodium Level 138 Potassium Level 4.0 Chloride Level 100 Carbon Dioxide Level 31 Anion Gap 7 Blood Urea Nitrogen 29 H Creatinine 0.86 Est Glomerular Filtrat Rate mL/min > 60 Glucose Level 133 Calcium Level 8.0 L Medications Medication Current Medications Morphine Sulfate (morphine) 2 mg Q4H PRN IV SEVERE PAIN LEVEL 7-10 Last administered on 12/17/18 23:54; Admin Dose 2 MG; Start 10/22/18 at 01:30 Phenol (Cepastat Lozenge) 1 lozenge Q1H PRN MT sore throat Last administered on 10/31/18 18:34; Admin Dose 1 LOZENGE; Start 10/27/18 at 21:30 Metolazone (Zaroxolyn) 2.5 mg BID@0530,1730 PO Last administered on 12/18/18 05:58; Admin Dose 2.5 MG; Start 11/01/18 at 05:30 Enoxaparin Sodium (Lovenox) 40 mg DAILY SC Last administered on 11/23/18 09:02; Admin Dose 40 MG; Start 11/02/18 at 09:00; Status Hold Ibuprofen (Motrin) 400 mg Q6H PRN PO MILD PAIN(1-3) OR TEMP>38C Last administered on 12/09/18 02:07; Admin Dose 400 MG; Start 11/07/18 at 12:20 Potassium Chloride (Klor-Con 20) 20 meq BID PO Last administered on 12/18/18 09:30; Admin Dose 20 MEQ; Start 11/11/18 at 09:00 Ondansetron HCl (Zofran Inj) 4 mg Q6H PRN IV NAUSEA AND/OR VOMITING Last administered on 11/19/18 20:21; Admin Dose 4 MG; Start 11/19/18 at 20:30 Bumetanide (Bumex) 0.5 mg DAILY PO Last administered on 12/18/18 09:27; Admin Dose 0.5 MG; Start 11/20/18 at 09:00 Diphenhydramine HCl (Benadryl) 25 mg Q8H PRN PO ITCHING Last administered on 12/15/18 22:26; Admin Dose 25 MG; Start 11/20/18 at 14:00 Bisacodyl (Dulcolax Supp) 10 mg Q8H PRN [place] CONSTIPATION; Start 11/20/18 at 17:30 Guaifenesin/ Codeine Phosphate (Robitussin Ac Liquid Cup) 10 ml Q4H PRN PO COUGH; Start 11/20/18 at 17:30 Magnesium Hydroxide (Milk Of Mag) 30 ml DAILY PRN PO CONSTIPATION Last administered on 11/24/18 08:45; Admin Dose 30 ML; Start 11/20/18 at 17:30 Simethicone (Mylicon) 80 mg Q8H PRN PO INDIGESTION; Start 11/20/18 at 23:30 Escitalopram Oxalate (Lexapro) 10 mg DAILY PO Last administered on 12/18/18 09:27; Admin Dose 10 MG; Start 11/24/18 at 19:00 Anastrozole (Arimidex) 1 mg DAILY PO Last administered on 12/18/18 09:31; Admin Dose 1 MG; Start 11/25/18 at 10:30 Carvedilol (Coreg) 3.125 mg BID PO Last administered on 12/17/18 20:50; Admin Dose 3.125 MG; Start 11/25/18 at 10:30 Docusate Sodium (Colace) 100 mg BID PO Last administered on 12/18/18 09:27; Admin Dose 100 MG; Start 11/25/18 at 10:30 Loratadine (Claritin) 10 mg DAILY PO Last administered on 12/18/18 09:27; Admin Dose 10 MG; Start 11/25/18 at 10:30 Pantoprazole (Protonix Tab) 40 mg AC BREAKFAST PO Last administered on 12/18/18 05:56; Admin Dose 40 MG; Start 11/25/18 at 10:30 Polyethylene Glycol (Miralax) 17 gm DAILY PO Last administered on 12/18/18 09:27; Admin Dose 17 GM; Start 11/25/18 at 10:30 Spironolactone (Aldactone) 50 mg DAILY PO Last administered on 12/18/18 09:27; Admin Dose 50 MG; Start 11/25/18 at 10:30 Diclofenac Sodium (Voltaren 1% Gel) 2 gm QID TP Last administered on 12/18/18 12:18; Admin Dose 2 GM; Start 11/27/18 at 22:00 Oxycodone HCl (Oxycontin) 20 mg BID PO Last administered on 12/18/18 09:27; Admin Dose 20 MG; Start 12/01/18 at 09:00 Budesonide (Pulmicort (Neb)) 0.5 mg BID RESP THERAPY PRN HHN WHEEZING; Start 12/01/18 at 13:00 Zolpidem Tartrate (Ambien) 10 mg HS PRN PO INSOMNIA Last administered on 12/17/18 00:40; Admin Dose 5 MG; Start 12/02/18 at 20:00 Ergocalciferol (Drisdol) 50,000 unit Q7D PO Last administered on 12/17/18 16:50; Admin Dose 50,000 UNIT; Start 12/03/18 at 16:00 Ampicillin Sodium/ Sulbactam Sodium 100 ml @ 100 mls/hr Q6 IVPB Last administered on 12/18/18 12:22; Admin Dose 100 MLS/HR; Start 12/12/18 at 17:00 YEISON SOLIZ Dec 18, 2018 12:30
--- NOTE | 2018-12-18 13:56 | CONS ---
Assessment/Plan Assessment/Plan Hospital Course (Demo Recall) Alert, feels good Antimicrobials: Unasyn 12/12 Indwelling: R chest Port-A-Cath 05/29/18 Physical examination: Obese well-developed middle-aged [place]-speaking woman who is alert in no distress. Head atraumatic normocephalic sclera nonicteric vehicle mucosa pink. Neck is supple chest rise symmetrical breath sounds diminished bases. Heart: S1-S2. Abdomen soft bowel sounds present extremities without cyanosis, left upper extremity with edema Assessment: 1. Bilateral mastoiditis, left more than the right 2. Metastatic breast cancer 3. Status post R hip arthroplasty due to lytic fracture 4. Status post recent fall with left wrist fracture that is being treated conservatively Plan: Stable continue antibiotics to complete 2 weeks, may change to PO Augmentin upon dc, oncology rec-s Consultation Date/Type/Reason Admit Date/Time October 21, 2018 at 17:39 Initial Consult Date 11/21/18 Type of Consult id Requesting Provider: RUSS JEROME MD Date/Time of Note DATE: 12/18/18 TIME: 13:55 Exam/Review of Systems Exam Vitals Vital Signs Date Temp Pulse Resp B/P (MAP) Pulse Ox O2 O2 Flow FiO2 Time Delivery Rate 12/18/18 97.8 85 17 107/52 95 Room Air 08:23 (70) Intake and Output 12/17/18 12/17/18 12/18/18 1414:59 22:59 06:59 IntakeIntake Total 600 ml 860 ml 700 ml BalanceBalance 600 ml 860 ml 700 ml Results Result Diagram: 12/14/18 0453 12/18/18 0432 Results 24hrs Laboratory Tests Test 12/18/18 04:32 Sodium Level 138 Potassium Level 4.0 Chloride Level 100 Carbon Dioxide Level 31 Anion Gap 7 Blood Urea Nitrogen 29 H Creatinine 0.86 Est Glomerular Filtrat Rate mL/min > 60 Glucose Level 133 Calcium Level 8.0 L Medications Medication Current Medications Morphine Sulfate (morphine) 2 mg Q4H PRN IV SEVERE PAIN LEVEL 7-10 Last administered on 12/17/18at 23:54; Admin Dose 2 MG; Start 10/22/18 at 01:30 Phenol (Cepastat Lozenge) 1 lozenge Q1H PRN [place] sore throat Last administered on 10/31/18at 18:34; Admin Dose 1 LOZENGE; Start 10/27/18 at 21:30 Metolazone (Zaroxolyn) 2.5 mg BID@0530,1730 PO Last administered on 12/18/18 05:58; Admin Dose 2.5 MG; Start 11/01/18 at 05:30 Enoxaparin Sodium (Lovenox) 40 mg DAILY SC Last administered on 11/23/18 09:02; Admin Dose 40 MG; Start 11/02/18 at 09:00; Status Hold Ibuprofen (Motrin) 400 mg Q6H PRN PO MILD PAIN(1-3) OR TEMP>38C Last administered on 12/09/18 02:07; Admin Dose 400 MG; Start 11/07/18 at 12:20 Potassium Chloride (Klor-Con 20) 20 meq BID PO Last administered on 12/18/18 09:30; Admin Dose 20 MEQ; Start 11/11/18 at 09:00 Ondansetron HCl (Zofran Inj) 4 mg Q6H PRN IV NAUSEA AND/OR VOMITING Last admin istered on 11/19/18 20:21; Admin Dose 4 MG; Start 11/19/18 at 20:30 Bumetanide (Bumex) 0.5 mg DAILY PO Last administered on 12/18/18 09:27; Admin Dose 0.5 MG; Start 11/20/18 at 09:00 Diphenhydramine HCl (Benadryl) 25 mg Q8H PRN PO ITCHING Last administered on 12/15/18 22:26; Admin Dose 25 MG; Start 11/20/18 at 14:00 Bisacodyl (Dulcolax Supp) 10 mg Q8H PRN [place] CONSTIPATION; Start 11/20/18 at 17:30 Guaifenesin/ Codeine Phosphate (Robitussin Ac Liquid Cup) 10 ml Q4H PRN PO COUGH; Start 11/20/18 at 17:30 Magnesium Hydroxide (Milk Of Mag) 30 ml DAILY PRN PO CONSTIPATION Last administered on 11/24/18 08:45; Admin Dose 30 ML; Start 11/20/18 at 17:30 Simethicone (Mylicon) 80 mg Q8H PRN PO INDIGESTION; Start 11/20/18 at 23:30 Escitalopram Oxalate (Lexapro) 10 mg DAILY PO Last administered on 12/18/18 09:27; Admin Dose 10 MG; Start 11/24/18 at 19:00 Anastrozole (Arimidex) 1 mg DAILY PO Last administered on 12/18/18 09:31; Admin Dose 1 MG; Start 11/25/18 at 10:30 Carvedilol (Coreg) 3.125 mg BID PO Last administered on 12/17/18 20:50; Admin Dose 3.125 MG; Start 11/25/18 at 10:30 Docusate Sodium (Colace) 100 mg BID PO Last administered on 12/18/18 09:27; Admin Dose 100 MG; Start 11/25/18 at 10:30 Loratadine (Claritin) 10 mg DAILY PO Last administered on 12/18/18 09:27; Admin Dose 10 MG; Start 11/25/18 at 10:30 Pantoprazole (Protonix Tab) 40 mg AC BREAKFAST PO Last administered on 9at 05:56; Admin Dose 40 MG; Start 11/25/18 at 10:30 Polyethylene Glycol (Miralax) 17 gm DAILY PO Last administered on 12/18/18 09:27; Admin Dose 17 GM; Start 11/25/18 at 10:30 Spironolactone (Aldactone) 50 mg DAILY PO Last administered on 12/18/18 09:27; Admin Dose 50 MG; Start 11/25/18 at 10:30 Diclofenac Sodium (Voltaren 1% Gel) 2 gm QID TP Last administered on 12/18/18 12:18; Admin Dose 2 GM; Start 11/27/18 at 22:00 Oxycodone HCl (Oxycontin) 20 mg BID PO Last administered on 12/18/18 09:27; Admin Dose 20 MG; Start 12/01/18 at 09:00 Budesonide (Pulmicort (Neb)) 0.5 mg BID RESP THERAPY PRN HHN WHEEZING; Start 12/01/18 at 13:00 Zolpidem Tartrate (Ambien) 10 mg HS PRN PO INSOMNIA Last administered on 12/17/18 00:40; Admin Dose 5 MG; Start 12/02/18 at 20:00 Ergocalciferol (Drisdol) 50,000 unit Q7D PO Last administered on 12/17/18at 16:50; Admin Dose 50,000 UNIT; Start 12/03/18 at 16:00 Ampicillin Sodium/ Sulbactam Sodium 100 ml @ 100 mls/hr Q6 IVPB Last administered on 12/18/18at 12:22; Admin Dose 100 MLS/HR; Start 12/12/18 at 17:00 YUAN ROMERO NP Dec 18, 2018 13:56
--- NOTE | 2018-12-18 14:30 | CONS ---
Assessment/Plan Assessment/Plan Hospital Course (Demo Recall) IMPRESSION: 1. Congestive heart failure exacerbation would be diastolic, acute on chronic by most recent echo.-now s/p echo this admit with EF 60/small effusion 2. Abnormal electrocardiogram with low voltage, rule out pericardial effusion. 3. Hypertension-currently borderline hypotension 4. Metastatic breast carcinoma. 5. History of pathologic fractures of the leg, status post open reduction and internal fixation. 6. Anemia. 7. Increased BNP consistent with patient's congestive heart failure. 8. Pericardial effusion-small by echo 9. Edema-LE venous RAMÍREZ neg for DVT 10. Hypokalemia 11.Wrist fracture acute by films 11/20-conservative management at this time 12. Pleural effusion s/p recurrent thoracentesis last 12/04 Recc: -On med-surg -Continued on metolazone BID with low dose PO bumex and aldactone with overall reasonable volume status and resolution of much of LLE edema -renal and onc following -continue low dose coreg as tolerated only -continue conservative management of wrist fracture -? need for pleur-x catheter Consultation Date/Type/Reason Admit Date/Time October 21, 2018 at 17:39 Initial Consult Date 10/21/18 Type of Consult Cardiology Reason for Consultation CHF Requesting Provider: RUSS JEROME MD Date/Time of Note DATE: 12/18/18 TIME: 14:28 Exam/Review of Systems Vital Signs Vitals Vital Signs Date Temp Pulse Resp B/P (MAP) Pulse Ox O2 O2 Flow FiO2 Time Delivery Rate 12/18/18 97.8 85 17 107/52 95 Room Air 08:23 (70) Intake and Output 12/17/18 12/17/18 12/18/18 1414:59 22:59 06:59 IntakeIntake Total 600 ml 860 ml 700 ml BalanceBalance 600 ml 860 ml 700 ml Exam Exam Review of Systems: CONSTITUTIONAL: No fevers, chills. PULMONARY: No sob CARDIOVASCULAR: No chest pain/palpitations GASTROINTESTINAL: No nausea/vomiting. GENITOURINARY: No hematuria/dysuria. MUSCULOSKELETAL: No myagias/arthalgias. PSYCHIATRIC: The patient denies depression. NEUROLOGIC: No weakness Constitutional: alert Psych: no complaints Head: normocephalic ENMT: mucosa pink and moist Neck: supple, jvd (9 cm water) Respiratory: diminished breath sounds Cardiovascular: regular rate and rhythm Gastrointestinal: soft, non-tender Musculoskeletal: muscle weakness (generalized) Extremities: pitting pedal edema (L>R) Neurological: other (no focal deficits) Labs Result Diagram: 12/14/18 0453 12/18/18 0432 Results 24hrs Laboratory Tests Test 12/18/18 04:32 Sodium Level 138 Potassium Level 4.0 Chloride Level 100 Carbon Dioxide Level 31 Anion Gap 7 Blood Urea Nitrogen 29 H Creatinine 0.86 Est Glomerular Filtrat Rate mL/min > 60 Glucose Level 133 Calcium Level 8.0 L Medications Medications Current Medications Morphine Sulfate (morphine) 2 mg Q4H PRN IV SEVERE PAIN LEVEL 7-10 Last administered on 12/17/18 23:54; Admin Dose 2 MG; Start 10/22/18 at 01:30 Phenol (Cepastat Lozenge) 1 lozenge Q1H PRN MT sore throat Last administered on 10/31/18 18:34; Admin Dose 1 LOZENGE; Start 10/27/18 at 21:30 Metolazone (Zaroxolyn) 2.5 mg BID@0530,1730 PO Last administered on 12/18/18 05:58; Admin Dose 2.5 MG; Start 11/01/18 at 05:30 Enoxaparin Sodium (Lovenox) 40 mg DAILY SC Last administered on 11/23/18 09:02; Admin Dose 40 MG; Start 11/02/18 at 09:00; Status Hold Ibuprofen (Motrin) 400 mg Q6H PRN PO MILD PAIN(1-3) OR TEMP>38C Last administered on 12/09/18 02:07; Admin Dose 400 MG; Start 11/07/18 at 12:20 Potassium Chloride (Klor-Con 20) 20 meq BID PO Last administered on 12/18/18 09:30; Admin Dose 20 MEQ; Start 11/11/18 at 09:00 Ondansetron HCl (Zofran Inj) 4 mg Q6H PRN IV NAUSEA AND/OR VOMITING Last administered on 11/19/18 20:21; Admin Dose 4 MG; Start 11/19/18 at 20:30 Bumetanide (Bumex) 0.5 mg DAILY PO Last administered on 12/18/18 09:27; Admin Dose 0.5 MG; Start 11/20/18 at 09:00 Diphenhydramine HCl (Benadryl) 25 mg Q8H PRN PO ITCHING Last administered on 12/15/18 22:26; Admin Dose 25 MG; Start 11/20/18 at 14:00 Bisacodyl (Dulcolax Supp) 10 mg Q8H PRN [place] CONSTIPATION; Start 11/20/18 at 17:30 Guaifenesin/ Codeine Phosphate (Robitussin Ac Liquid Cup) 10 ml Q4H PRN PO COUGH; Start 11/20/18 at 17:30 Magnesium Hydroxide (Milk Of Mag) 30 ml DAILY PRN PO CONSTIPATION Last administered on 11/24/18 08:45; Admin Dose 30 ML; Start 11/20/18 at 17:30 Simethicone (Mylicon) 80 mg Q8H PRN PO INDIGESTION; Start 11/20/18 at 23:30 Escitalopram Oxalate (Lexapro) 10 mg DAILY PO Last administered on 12/18/18 09:27; Admin Dose 10 MG; Start 11/24/18 at 19:00 Anastrozole (Arimidex) 1 mg DAILY PO Last administered on 12/18/18 09:31; Admin Dose 1 MG; Start 11/25/18 at 10:30 Carvedilol (Coreg) 3.125 mg BID PO Last administered on 12/17/18 20:50; Admin Dose 3.125 MG; Start 11/25/18 at 10:30 Docusate Sodium (Colace) 100 mg BID PO Last administered on 12/18/18 09:27; Admin Dose 100 MG; Start 11/25/18 at 10:30 Loratadine (Claritin) 10 mg DAILY PO Last administered on 12/18/18 09:27; Admin Dose 10 MG; Start 11/25/18 at 10:30 Pantoprazole (Protonix Tab) 40 mg AC BREAKFAST PO Last administered on 12/18/18 05:56; Admin Dose 40 MG; Start 11/25/18 at 10:30 Polyethylene Glycol (Miralax) 17 gm DAILY PO Last administered on 12/18/18 09:27; Admin Dose 17 GM; Start 11/25/18 at 10:30 Spironolactone (Aldactone) 50 mg DAILY PO Last administered on 12/18/18 09:27; Admin Dose 50 MG; Start 11/25/18 at 10:30 Diclofenac Sodium (Voltaren 1% Gel) 2 gm QID TP Last administered on 12/18/18 12:18; Admin Dose 2 GM; Start 11/27/18 at 22:00 Oxycodone HCl (Oxycontin) 20 mg BID PO Last administered on 12/18/18 09:27; Admin Dose 20 MG; Start 12/01/18 at 09:00 Budesonide (Pulmicort (Neb)) 0.5 mg BID RESP THERAPY PRN HHN WHEEZING; Start 12/01/18 at 13:00 Zolpidem Tartrate (Ambien) 10 mg HS PRN PO INSOMNIA Last administered on 12/17/18 00:40; Admin Dose 5 MG; Start 12/02/18 at 20:00 Ergocalciferol (Drisdol) 50,000 unit Q7D PO Last administered on 12/17/18 16:50; Admin Dose 50,000 UNIT; Start 12/03/18 at 16:00 Ampicillin Sodium/ Sulbactam Sodium 100 ml @ 100 mls/hr Q6 IVPB Last administered on 12/18/18 12:22; Admin Dose 100 MLS/HR; Start 12/12/18 at 17:00 KAMILA TERESA Dec 18, 2018 14:30
[2018-12-18 15:24] VITALS: BP 121/70; PULSE 86; RESP 18
[2018-12-18 20:06] VITALS: BP 119/64; PULSE 81; RESP 18
--- NOTE | 2018-12-18 22:20 | CONS ---
Assessment/Plan Assessment/Plan Hospital Course (Demo Recall) METASTATIC BREAST CANCER WITH PRIMARY ADENOCARCINOMA IN the left breast. MULTIPLE BONY METS, PULMONARY METS, LIVER METS CHEMO ON HOLD PT HAS A VERY GOOD RESPONSE TO CHEMO AND AI CONT AI FOR NOW CT ABD FOR RESTAGING 08.27.18, 12.04.18 - noted , stable POST aredia Leukopenia- post chemo, FLUCTUATING post NEUPOGEN monitor closely post Neutropenia with occasional fever and chills. - resolved Anemia chronic disease SOB PLEURAL EFFUSIONS, NEG CYTOLOGY POST thoracentesis Fluid overload diuretic cardiology F-UP Severe pain in the interscapular and lumbar sacral area most probably metastatic lesion possible femoral fracture. pathologic fracture of T9 with 60% of loss of height. Bony pain with multiple bony mets post XRT d/w dr Ocampo HYPOKALEMIA- REPLACED Obesity. Weight loss 60 pounds during the last 2 years COUGH, Upper respiratory infection pharyngitis with dry cough. POST ATB PMS. Myopia. Anxiety disorder. Claustrophobia. Posttraumatic stress disorder. Pain in the left forearm with a history of fracture of ulna and radius. Tachycardia Hypoxemia at night marginal improved after 2 L of nasal cannula oxygen. Deconditioning Pain syndrome. Today the most painful zone is in the right hip area. X-ray did not show any fractures. Hyponatremia- resolved Hypoalbuminemia Right sided cp after catheter insertion and correction less discomfort. Decreased edema both lower extremities with hypotension-improving Swelling of the left forearm-persist. Consultation Date/Type/Reason Admit Date/Time October 21, 2018 at 17:39 Initial Consult Date 10/21/18 Type of Consult [facility] Requesting Provider: RUSS JEROME MD Date/Time of Note DATE: 12/18/18 TIME: 22:19 Exam/Review of Systems Exam Vitals Vital Signs Date Temp Pulse Resp B/P (MAP) Pulse Ox O2 O2 Flow FiO2 Time Delivery Rate 12/18/18 98.4 81 18 119/64 97 20:06 (82) 12/18/18 Room Air 15:24 Intake and Output 12/17/18 12/17/18 12/18/18 1515:00 23:00 07:00 IntakeIntake Total 600 ml 860 ml 700 ml BalanceBalance 600 ml 860 ml 700 ml Exam Constitutional: alert, oriented, well developed, distress, frail; No non-verbal, No obese, No other Psych: nl mood/affect, anxiety, depression; No no complaints, No confusion, No suicidal, No other Head: normocephalic, atraumatic; No lacerations, No hematomas, No other Eyes: EOMI, nl lids, PERRL; No nl conjunctiva, No nl sclera, No icteric, No fundi, disc, No other ENMT: nl lips & teeth, tympanic membranes; No nl external ears & nose, No nl nasal mucosa & septum, No mucosa pink and moist, No intubated, No other Neck: jvd, bruits; No supple, No non-tender, No masses, No thyromegaly, No nuchal rigidity, No other Respiratory: clear to auscultation (Upper parts with pleural friction rub lower parts.), congested cough, diminished breath sounds; No normal air movement, No crackles/rales, No intercostal retraction, No labored breathing, No respirations, No tactile fremitus, No wheezing, No other Cardiovascular: regular rate and rhythm, edema, systolic murmur; No nl pulses, No bruits, No diastolic murmur, No gallop, No irregular rhythm, No jugular venous distention (JVD), No murmurs/extra sounds, No rub, No S3, No S4, No other Gastrointestinal: soft, nl liver, spleen, bowel sounds; No non-tender, No ascites, No distended, No firm, No hepatomegaly, No mass, No rebound or guarding, No splenomegaly, No surgical scars, No tender, No other Musculoskeletal: joint tenderness, muscle tone, muscle weakness; No nl extremities to inspection, No nl gait and stance, No range of motion, No spine non-tender, No swelling, No other Extremities: No normal pulses, No calf tenderness, No cyanosis, No clubbing, No edema, No pitting pedal edema, No palpable cord, No tenderness, No other Neurological: STOPPER GRINDER 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; No nl mental status, No nl speech, No nl strength, No confused, No DTR's symmetric, No focal weakness, No lethargic, No numbness, No reflexes, No unresponsive, No other Skin: No nl turgor, No rash or lesions, No diaphoresis, No ecchymosis, No laceration, No puncture, No other Lymph: No nl lymph nodes, No enlarged, No nontender, No other Results Result Diagram: 12/14/18 0453 12/18/18 0432 Results 24hrs Laboratory Tests Test 12/18/18 04:32 Sodium Level 138 Potassium Level 4.0 Chloride Level 100 Carbon Dioxide Level 31 Anion Gap 7 Blood Urea Nitrogen 29 H Creatinine 0.86 Est Glomerular Filtrat Rate mL/min > 60 Glucose Level 133 Calcium Level 8.0 L Medications Medication Current Medications Morphine Sulfate (morphine) 2 mg Q4H PRN IV SEVERE PAIN LEVEL 7-10 Last administered on 12/17/18 23:54; Admin Dose 2 MG; Start 10/22/18 at 01:30 Phenol (Cepastat Lozenge) 1 lozenge Q1H PRN MT sore throat Last administered on 10/31/18 18:34; Admin Dose 1 LOZENGE; Start 10/27/18 at 21:30 Metolazone (Zaroxolyn) 2.5 mg BID@9430,1730 PO Last administered on 12/18/18 18:23; Admin Dose 2.5 MG; Start 11/01/18 at 05:30 Enoxaparin Sodium (Lovenox) 40 mg DAILY SC Last administered on 11/23/18 09:02; Admin Dose 40 MG; Start 11/02/18 at 09:00; Status Hold Ibuprofen (Motrin) 400 mg Q6H PRN PO MILD PAIN(1-3) OR TEMP>38C Last administered on 12/09/18 02:07; Admin Dose 400 MG; Start 11/07/18 at 12:20 Potassium Chloride (Klor-Con 20) 20 meq BID PO Last administered on 12/18/18at 20:37; Admin Dose 20 MEQ; Start 11/11/18 at 09:00 Ondansetron HCl (Zofran Inj) 4 mg Q6H PRN IV NAUSEA AND/OR VOMITING Last administered on 11/19/18 20:21; Admin Dose 4 MG; Start 11/19/18 at 20:30 Bumetanide (Bumex) 0.5 mg DAILY PO Last administered on 12/18/18 09:27; Admin Dose 0.5 MG; Start 11/20/18 at 09:00 Diphenhydramine HCl (Benadryl) 25 mg Q8H PRN PO ITCHING Last administered on 12/15/18 22:26; Admin Dose 25 MG; Start 11/20/18 at 14:00 Bisacodyl (Dulcolax Supp) 10 mg Q8H PRN [place] CONSTIPATION; Start 11/20/18 at 17:30 Guaifenesin/ Codeine Phosphate (Robitussin Ac Liquid Cup) 10 ml Q4H PRN PO COUGH; Start 11/20/18 at 17:30 Magnesium Hydroxide (Milk Of Mag) 30 ml DAILY PRN PO CONSTIPATION Last administered on 11/24/18 08:45; Admin Dose 30 ML; Start 11/20/18 at 17:30 Simethicone (Mylicon) 80 mg Q8H PRN PO INDIGESTION; Start 11/20/18 at 23:30 Escitalopram Oxalate (Lexapro) 10 mg DAILY PO Last administered on 12/18/18 09:27; Admin Dose 10 MG; Start 11/24/18 at 19:00 Anastrozole (Arimidex) 1 mg DAILY PO Last administered on 12/18/18 09:31; Admin Dose 1 MG; Start 11/25/18 at 10:30 Carvedilol (Coreg) 3.125 mg BID PO Last administered on 12/18/18 20:39; Admin Dose 3.125 MG; Start 11/25/18 at 10:30 Docusate Sodium (Colace) 100 mg BID PO Last administered on 12/18/18 20:36; Admin Dose 100 MG; Start 11/25/18 at 10:30 Loratadine (Claritin) 10 mg DAILY PO Last administered on 12/18/18 09:27; Admin Dose 10 MG; Start 11/25/18 at 10:30 Pantoprazole (Protonix Tab) 40 mg AC BREAKFAST PO Last administered on 12/18/18 05:56; Admin Dose 40 MG; Start 11/25/18 at 10:30 Polyethylene Glycol (Miralax) 17 gm DAILY PO Last administered on 12/18/18 09:27; Admin Dose 17 GM; Start 11/25/18 at 10:30 Spironolactone (Aldactone) 50 mg DAILY PO Last administered on 12/18/18 09:27; Admin Dose 50 MG; Start 11/25/18 at 10:30 Diclofenac Sodium (Voltaren 1% Gel) 2 gm QID TP Last administered on 12/18/18 20:40; Admin Dose 2 GM; Start 11/27/18 at 22:00 Oxycodone HCl (Oxycontin) 20 mg BID PO Last administered on 12/18/18at 20:37; Admin Dose 20 MG; Start 12/01/18 at 09:00 Budesonide (Pulmicort (Neb)) 0.5 mg BID RESP THERAPY PRN HHN WHEEZING; Start 12/01/18 at 13:00 Zolpidem Tartrate (Ambien) 10 mg HS PRN PO INSOMNIA Last administered on 12/17/18 00:40; Admin Dose 5 MG; Start 12/02/18 at 20:00 Ergocalciferol (Drisdol) 50,000 unit Q7D PO Last administered on 12/17/18at 16:50; Admin Dose 50,000 UNIT; Start 12/03/18 at 16:00 Ampicillin Sodium/ Sulbactam Sodium 100 ml @ 100 mls/hr Q6 IVPB Last administered on 12/18/18 18:18; Admin Dose 100 MLS/HR; Start 12/12/18 at 17:00 DES DUNAWAY MD Dec 18, 2018 22:20
[2018-12-19] VITALS (9 sets, daily range): BP systolic 106–133; BP diastolic 68–78; PULSE 82–93; RESP 14–20
[2018-12-19] MEDS: AMPICILLIN/SULB 3 GM/NS (PMX) 100 ML IVPB SCH ×5 (00:11→23:01)
[2018-12-19] MEDS: morphine 2 MG INJ IV PRN ×2 (00:18→22:54)
[2018-12-19] MEDS: DIPHENHYDRAMINE 25 MG CAP PO PRN (02:45)
[2018-12-19] MEDS: PANTOPRAZOLE (EC) 40 MG TAB PO SCH (05:36)
[2018-12-19] MEDS: METOLAZONE 2.5 MG TAB PO SCH ×2 (05:36→17:24)
[2018-12-19] MEDS: BUMETANIDE 0.5 MG TAB PO SCH ×2 (08:36→16:10)
[2018-12-19] MEDS: DOCUSATE SODIUM 100 MG CAP PO SCH ×2 (08:36→20:13)
[2018-12-19] MEDS: ESCITALOPRAM 10 MG TAB PO SCH (08:36)
[2018-12-19] MEDS: oxyCODONE (CR) 20 MG TAB [oxyCONTIN] PO SCH ×2 (08:36→20:14)
[2018-12-19] MEDS: LORATADINE 10 MG TAB PO SCH (08:36)
[2018-12-19] MEDS: POLYETHYLENE GLYCOL 17 GM PACKET PO SCH (08:37)
[2018-12-19] MEDS: POTASSIUM CHLORIDE (SR) 20 MEQ TAB PO SCH ×2 (08:37→20:13)
[2018-12-19] MEDS: DICLOFENAC SODIUM 1% GEL 100 GM TUBE TP SCH ×4 (08:37→20:14)
[2018-12-19] MEDS: SPIRONOLACTONE 50 MG TAB PO SCH (08:37)
[2018-12-19] MEDS: ANASTROZOLE 1 MG TAB PO SCH (08:38)
[2018-12-19] MEDS ORDERED: LIDOCAINE 1% (MPF) 5 ML VIAL ONE (11:22)
--- NOTE | 2018-12-19 11:58 | PN ---
Date/Time of Note Date/Time of Note DATE: 12/19/18 TIME: 11:50 Assessment/Plan VTE Prophylaxis Risk score (from Ns)>0 risk: 5 SCD applied (from Ns): Yes Pharmacological prophylaxis: NA/contraindicated Pharm contraindication: surgical contra Lines/Catheters IV Catheter Type (from [facility]): port-a-cath Urinary Cath still in place: No Assessment/Plan Hospital Course Pt complained of SOB, thoracentesis ordered, s/p thoracentesis on left side with 925 cc of serous fluid removed today, post thoracentesis x-ray noted, plan for right-sided thoracentesis tomorrow. Bumex dose increased by cardiology. Patient has a placement at [facility]. If patient remains stable and cleared by consultants patient can be discharged to [facility] tomorrow. Medication reconciliation is on the chart. Assessment/Plan -Bilateral mastoiditis, left more than the right. Continue Unasyn in-house, will change to Augmentin upon discharge. Dr Espinosa is following in ID consultation. -Metastatic left breast cancer with pulmonary, liver, and bone involvement. S/p chemo which is on hold now. Continued on Arimidex. Dr. Fernández is following in oncology consultation. -Recurrent pleural effusions requiring bilateral thoracentesis -Diastolic congestive heart failure, patient is currently on Aldactone, Bumex, and Coreg. Dr. Hurtado is following in cardiology consultation. -Acute on chronic pain, continue OxyContin twice daily and morphine as needed -Status post R hip arthroplasty due to lytic fracture -Status post recent fall with left wrist fracture that is being treated conserva tively -Left lower extremity lymphedema -Obesity Further recommendations based on clinical course. Plan of care discussed with Dr. Peñaloza. Result Diagram: 12/18/18 0432 Results 24hrs Laboratory Tests Test 12/19/18 09:32 12/19/18 09:37 Total Bilirubin 0.4 Direct Bilirubin 0.00 Indirect Bilirubin 0.4 Aspartate Amino Transf (AST/SGOT) 42 Alanine Aminotransferase (ALT/SGPT) 48 Alkaline Phosphatase 105 Total Protein 6.3 Albumin 3.1 L Calcium Level 8.3 L Exam/Review of Systems Exam Vitals Vital Signs Date Temp Pulse Resp B/P (MAP) Pulse Ox O2 O2 Flow FiO2 Time Delivery Rate 12/19/18 20 109/72 96 11:15 (84) 12/19/18 98.0 85 11:00 12/19/18 Room Air 07:25 Intake and Output 12/18/18 12/18/18 12/19/18 1515:00 23:00 07:00 IntakeIntake Total 660 ml 220 ml OutputOutput Total 1 ml BalanceBalance 660 ml 219 ml Exam Constitutional: alert, oriented Respiratory: diminished Cardiovascular: nl pulses Gastrointestinal: soft, non-tender Extremities: edema Neurological: nl mental status Skin: nl turgor Additional Comments Right chest Port-A-Cath Results Results 24hrs Laboratory Tests Test 12/19/18 09:32 12/19/18 09:37 Total Bilirubin 0.4 Direct Bilirubin 0.00 Indirect Bilirubin 0.4 Aspartate Amino Transf (AST/SGOT) 42 Alanine Aminotransferase (ALT/SGPT) 48 Alkaline Phosphatase 105 Total Protein 6.3 Albumin 3.1 L Calcium Level 8.3 L Medications Medication Current Medications Morphine Sulfate (morphine) 2 mg Q4H PRN IV SEVERE PAIN LEVEL 7-10 Last administered on 12/19/18 00:18; Admin Dose 2 MG; Start 10/22/18 at 01:30 Phenol (Cepastat Lozenge) 1 lozenge Q1H PRN MT sore throat Last administered on 10/31/18 18:34; Admin Dose 1 LOZENGE; Start 10/27/18 at 21:30 Metolazone (Zaroxolyn) 2.5 mg BID@0530,1730 PO Last administered on 12/19/18 05:36; Admin Dose 2.5 MG; Start 11/01/18 at 05:30 Enoxaparin Sodium (Lovenox) 40 mg DAILY SC Last administered on 11/23/18 09:02; Admin Dose 40 MG; Start 11/02/18 at 09:00; Status Hold Ibuprofen (Motrin) 400 mg Q6H PRN PO MILD PAIN(1-3) OR TEMP>38C Last administered on 12/09/18 02:07; Admin Dose 400 MG; Start 11/07/18 at 12:20 Potassium Chloride (Klor-Con 20) 20 meq BID PO Last administered on 12/19/18 08:37; Admin Dose 20 MEQ; Start 11/11/18 at 09:00 Ondansetron HCl (Zofran Inj) 4 mg Q6H PRN IV NAUSEA AND/OR VOMITING Last administered on 11/19/18 20:21; Admin Dose 4 MG; Start 11/19/18 at 20:30 Bumetanide (Bumex) 0.5 mg DAILY PO Last administered on 12/19/18 08:36; Admin Dose 0.5 MG; Start 11/20/18 at 09:00 Diphenhydramine HCl (Benadryl) 25 mg Q8H PRN PO ITCHING Last administered on 12/19/18 02:45; Admin Dose 25 MG; Start 11/20/18 at 14:00 Bisacodyl (Dulcolax Supp) 10 mg Q8H PRN [place] CONSTIPATION; Start 11/20/18 at 17:30 Guaifenesin/ Codeine Phosphate (Robitussin Ac Liquid Cup) 10 ml Q4H PRN PO COUGH; Start 11/20/18 at 17:30 Magnesium Hydroxide (Milk Of Mag) 30 ml DAILY PRN PO CONSTIPATION Last administered on 11/24/18 08:45; Admin Dose 30 ML; Start 11/20/18 at 17:30 Simethicone (Mylicon) 80 mg Q8H PRN PO INDIGESTION; Start 11/20/18 at 23:30 Escitalopram Oxalate (Lexapro) 10 mg DAILY PO Last administered on 12/19/18 08:36; Admin Dose 10 MG; Start 11/24/18 at 19:00 Anastrozole (Arimidex) 1 mg DAILY PO Last administered on 12/19/18 08:38; Admin Dose 1 MG; Start 11/25/18 at 10:30 Carvedilol (Coreg) 3.125 mg BID PO Last administered on 12/19/18 08:37; Admin Dose 3.125 MG; Start 11/25/18 at 10:30 Docusate Sodium (Colace) 100 mg BID PO Last administered on 12/19/18 08:36; Admin Dose 100 MG; Start 11/25/18 at 10:30 Loratadine (Claritin) 10 mg DAILY PO Last administered on 12/19/18 08:36; Admin Dose 10 MG; Start 11/25/18 at 10:30 Pantoprazole (Protonix Tab) 40 mg AC BREAKFAST PO Last administered on 12/19/18 05:36; Admin Dose 40 MG; Start 11/25/18 at 10:30 Polyethylene Glycol (Miralax) 17 gm DAILY PO Last administered on 12/19/18 08:37; Admin Dose 17 GM; Start 11/25/18 at 10:30 Spironolactone (Aldactone) 50 mg DAILY PO Last administered on 12/19/18 08:37; Admin Dose 50 MG; Start 11/25/18 at 10:30 Diclofenac Sodium (Voltaren 1% Gel) 2 gm QID TP Last administered on 12/19/18 08:37; Admin Dose 2 GM; Start 11/27/18 at 22:00 Oxycodone HCl (Oxycontin) 20 mg BID PO Last administered on 12/19/18 08:36; Admin Dose 20 MG; Start 12/01/18 at 09:00 Budesonide (Pulmicort (Neb)) 0.5 mg BID RESP THERAPY PRN HHN WHEEZING; Start 12/01/18 at 13:00 Zolpidem Tartrate (Ambien) 10 mg HS PRN PO INSOMNIA Last administered on 12/17/18 00:40; Admin Dose 5 MG; Start 12/02/18 at 20:00 Ergocalciferol (Drisdol) 50,000 unit Q7D PO Last administered on 12/17/18 16:50; Admin Dose 50,000 UNIT; Start 12/03/18 at 16:00 Ampicillin Sodium/ Sulbactam Sodium 100 ml @ 100 mls/hr Q6 IVPB Last administered on 12/19/18 05:35; Admin Dose 100 MLS/HR; Start 12/12/18 at 17:00 YEISON SOLIZ Dec 19, 2018 11:58
--- NOTE | 2018-12-19 15:06 | CONS ---
Consult Date/Type/Reason Admit Date/Time October 21, 2018 at 17:39 Initial Consult Date 10/21/18 Requesting Provider: RUSS JEROME MD Date/Time of Note DATE: 12/19/18 TIME: 15:05 Subjective Pt stable - reports chills - now with increased LE edema - will increased diuretic to BID dose - avoid overhydration. ROS: No fever, no nausea, no vomiting, no diarrhea/constipation - + CHILLS, + increased Edema Objective Vitals Vital Signs Date Temp Pulse Resp B/P (MAP) Pulse Ox O2 O2 Flow FiO2 Time Delivery Rate 12/19/18 98.1 84 16 116/69 98 Room Air 13:49 (85) Intake and Output 12/18/18 12/18/18 12/19/18 1414:59 22:59 06:59 IntakeIntake Total 660 ml 220 ml 100 ml OutputOutput Total 1 ml BalanceBalance 660 ml 219 ml 100 ml Exam General: WN/WD/NAD, AOx 3 HEENT: Unicetric/atraumatic/EOMI (follow commands) NECK: JVD elevated, no thyromegaly Lymph: no lymphadenopathy HEART: regular with no S3, II/ systolic murmur at apex LUNGS: Coarse sounds ABD: soft, NT, ND, +BS : Intact Neuro: non focal SKIN: chronic changes EXT: 1+ edema Results/Medications Result Diagram: 12/18/18 0432 Results 24 hrs Laboratory Tests Test 12/19/18 09:32 12/19/18 09:37 Total Bilirubin 0.4 Direct Bilirubin 0.00 Indirect Bilirubin 0.4 Aspartate Amino Transf (AST/SGOT) 42 Alanine Aminotransferase (ALT/SGPT) 48 Alkaline Phosphatase 105 Total Protein 6.3 Albumin 3.1 L Calcium Level 8.3 L Home Meds Reported Medications Tuberculin,Purif.prot.deriv. (Tubersol) 5 Tub Unit/0.1 Ml Vial, 0.1 ML ID, VIAL INJECT QHS EVERY 10 DAYS FOR PPD SCREENING FOR 11 DAYS READ IN 48 HOURS,IF NEGATIVE 2STEP IN 7 DAYS FROM FIRST DOSE. 10/21/18 Acetaminophen* (Tylenol*) 325 Mg Tablet, 650 MG PO Q4H PRN for PAIN LEVEL 1- 10/10, TAB 10/21/18 Spironolactone* (Aldactone*) 50 Mg Tablet, 50 MG PO DAILY, #30 TAB HOLD FOR SBP<110 10/21/18 Simethicone* (Mylicon*) 80 Mg Tab, 80 MG PO Q8H, TAB 10/21/18 Olopatadine* (Patanol* Ophth) 0.1% - 5 Ml Drops, 1 DROP BOTH EYES BID, EA 10/21/18 Hydrocodone/Acetaminophen ([place] 10-325 Tablet) 1 Each Tablet, 1 EACH PO Q4H, TAB 10/21/18 Loratadine* (Loratadine*) 10 Mg Tablet, 10 MG PO DAILY for FOR 3 MONTHS, #30 TAB 10/21/18 Lidocaine (Lidocaine) 1 Each Adh..patch, 1 EACH TP DAILY 10/21/18 Ipratropium-Albuterol (Ipratropium-Albuterol) 0.5-3 Mg/3 Ml Ampul.neb, 3 ML INHA LATION Q8H, #30 VIAL 10/21/18 Furosemide* (Furosemide*) 40 Mg Tablet, 40 MG PO BID, TAB HOLD FOR SBP<110 10/21/18 Na Phos,M-B/Na Phos,Di-Ba (Fleet Enema Extra) Unknown Strength Enema, 1 APPLIC RC NEEDED for CONSTIPATION, ENEMA 10/21/18 Bisacodyl (Dulcolax) 10 Mg Supp.rect, 10 MG RC NEEDED, SUPP.RECT 10/21/18 Potassium Chloride* (Potassium Chloride*) 20 Meq Tablet.er, 20 MEQ PO DAILY, TAB.SA 09/09/18 Pantoprazole* (Pantoprazole*) 40 Mg Tablet.dr, 40 MG PO AC BREAKFAST, TAB 08/22/18 Oxycodone Hcl* (Oxycontin*) 20 Mg Tab.er.12h, 20 MG PO Q12, TAB 08/22/18 Amlodipine Besylate* (Norvasc*) 5 Mg Tablet, 5 MG PO DAILY, TAB HOLD FOR SBP <110. 08/22/18 Polyethylene Glycol* (Miralax*) 17 Gm Powd.pack, 17 GM PO DAILY, #60 PACKET 08/22/18 Magnesium Hydroxide* (Milk Of Magnesia*) 400 Mg/5 Ml Oral.susp, 30 ML PO DAILY, ML 08/22/18 Escitalopram Oxalate* (Lexapro*) 10 Mg Tablet, 10 MG PO DAILY, #30 TAB 08/22/18 Docusate Sodium* (Colace*) 100 Mg Capsule, 100 MG PO BID, #60 CAP 08/22/18 Carvedilol* (Carvedilol*) 3.125 Mg Tablet, 3.125 MG PO BID, #60 TAB HOLD FOR SBP <110 OR MT <60. GIVE WITH FOOD. 08/22/18 Benazepril Hcl* (Benazepril Hcl*) 5 Mg Tablet, 5 MG PO DAILY, #60 TAB HOLD FOR SBP <110. 08/22/18 Anastrozole* (Arimidex*) 1 Mg Tablet, 1 MG PO DAILY, #30 TAB 08/22/18 Medications Current Medications Morphine Sulfate (morphine) 2 mg Q4H PRN IV SEVERE PAIN LEVEL 7-10 Last administered on 12/19/18at 00:18; Admin Dose 2 MG; Start 10/22/18 at 01:30 Phenol (Cepastat Lozenge) 1 lozenge Q1H PRN [place] sore throat Last administered on 10/31/18at 18:34; Admin Dose 1 LOZENGE; Start 10/27/18 at 21:30 Metolazone (Zaroxolyn) 2.5 mg BID@0530,1730 PO Last administered on 12/19/18 05:36; Admin Dose 2.5 MG; Start 11/01/18 at 05:30 Enoxaparin Sodium (Lovenox) 40 mg DAILY SC Last administered on 11/23/18 09:02; Admin Dose 40 MG; Start 11/02/18 at 09:00; Status Hold Ibuprofen (Motrin) 400 mg Q6H PRN PO MILD PAIN(1-3) OR TEMP>38C Last administered on 12/09/18 02:07; Admin Dose 400 MG; Start 11/07/18 at 12:20 Potassium Chloride (Klor-Con 20) 20 meq BID PO Last administered on 12/19/18 08:37; Admin Dose 20 MEQ; Start 11/11/18 at 09:00 Ondansetron HCl (Zofran Inj) 4 mg Q6H PRN IV NAUSEA AND/OR VOMITING Last administered on 11/19/18 20:21; Admin Dose 4 MG; Start 11/19/18 at 20:30 Diphenhydramine HCl (Benadryl) 25 mg Q8H PRN PO ITCHING Last administered on 12/19/18 02:45; Admin Dose 25 MG; Start 11/20/18 at 14:00 Bisacodyl (Dulcolax Supp) 10 mg Q8H PRN [place] CONSTIPATION; Start 11/20/18 at 17:30 Guaifenesin/ Codeine Phosphate (Robitussin Ac Liquid Cup) 10 ml Q4H PRN PO COUGH; Start 11/20/18 at 17:30 Magnesium Hydroxide (Milk Of Mag) 30 ml DAILY PRN PO CONSTIPATION Last administered on 11/24/18 08:45; Admin Dose 30 ML; Start 11/20/18 at 17:30 Simethicone (Mylicon) 80 mg Q8H PRN PO INDIGESTION; Start 11/20/18 at 23:30 Escitalopram Oxalate (Lexapro) 10 mg DAILY PO Last administered on 12/19/18 08:36; Admin Dose 10 MG; Start 11/24/18 at 19:00 Anastrozole (Arimidex) 1 mg DAILY PO Last administered on 12/19/18 08:38; Admin Dose 1 MG; Start 11/25/18 at 10:30 Carvedilol (Coreg) 3.125 mg BID PO Last administered on 12/19/18 08:37; Admin Dose 3.125 MG; Start 11/25/18 at 10:30 Docusate Sodium (Colace) 100 mg BID PO Last administered on 12/19/18 08:36; Admin Dose 100 MG; Start 11/25/18 at 10:30 Loratadine (Claritin) 10 mg DAILY PO Last administered on 12/19/18 08:36; Admin Dose 10 MG; Start 11/25/18 at 10:30 Pantoprazole (Protonix Tab) 40 mg AC BREAKFAST PO Last administered on 12/19/18 05:36; Admin Dose 40 MG; Start 11/25/18 at 10:30 Polyethylene Glycol (Miralax) 17 gm DAILY PO Last administered on 12/19/18 08:37; Admin Dose 17 GM; Start 11/25/18 at 10:30 Spironolactone (Aldactone) 50 mg DAILY PO Last administered on 12/19/18 08:37; Admin Dose 50 MG; Start 11/25/18 at 10:30 Diclofenac Sodium (Voltaren 1% Gel) 2 gm QID TP Last administered on 12/19/18at 12:11; Admin Dose 2 GM; Start 11/27/18 at 22:00 Oxycodone HCl (Oxycontin) 20 mg BID PO Last administered on 12/19/18at 08:36; Admin Dose 20 MG; Start 12/01/18 at 09:00 Budesonide (Pulmicort (Neb)) 0.5 mg BID RESP THERAPY PRN HHN WHEEZING; Start 12/01/18 at 13:00 Zolpidem Tartrate (Ambien) 10 mg HS PRN PO INSOMNIA Last administered on 12/17/18at 00:40; Admin Dose 5 MG; Start 12/02/18 at 20:00 Ergocalciferol (Drisdol) 50,000 unit Q7D PO Last administered on 12/17/18at 16:50; Admin Dose 50,000 UNIT; Start 12/03/18 at 16:00 Ampicillin Sodium/ Sulbactam Sodium 100 ml @ 100 mls/hr Q6 IVPB Last administered on 12/19/18at 12:11; Admin Dose 100 MLS/HR; Start 12/12/18 at 17:00 Bumetanide (Bumex) 1 mg DAILY PO ; Start 12/20/18 at 09:00 Assessment/Plan Hospital Course (Demo Recall) 1. Congestive heart failure exacerbation would be diastolic, acute on chronic by most recent echo.-now s/p echo this admit with EF 60/small effusion - better now, responding to diuresis. CHF better, but suspect effusion is re-accumulated - stable. 2. Abnormal electrocardiogram with low voltage, rule out pericardial effusion - stable, no signs of tamponade. Treated. Off tele now. NO intervention planned. Stable. 3. Hypertension-currently borderline hypotension - treated with meds. BP stable overall. Tolerated Rx well. 4. Metastatic breast carcinoma- responded to chemo per Dr. Fernández - still poor prognosis. Traeted - hair beginning to grow back. Last effusion drainage a week ago - radiology to follow again. DR. Fernández Rx 5. History of pathologic fractures of the leg, status post open reduction and internal fixation - pain controlled. 6. Anemia - Rx per hem-onc team. Rx as needed. 7. Increased BNP consistent with patient's congestive heart failure. 8. Pericardial effusion-small by echo - on antin-Bx 8. SOB - now with increased Sx - awaiting CXR. EMILY NELSON MD Dec 19, 2018 15:06
[2018-12-19] MEDS: ONDANSETRON 4 MG INJ IV PRN (20:26)
--- NOTE | 2018-12-19 23:10 | CONS ---
Assessment/Plan Assessment/Plan Hospital Course (Demo Recall) METASTATIC BREAST CANCER WITH PRIMARY ADENOCARCINOMA IN the left breast. MULTIPLE BONY METS, PULMONARY METS, LIVER METS CHEMO ON HOLD PT HAS A VERY GOOD RESPONSE TO CHEMO AND AI CONT AI FOR NOW CT ABD FOR RESTAGING 08.27.18, 12.04.18 - noted , stable POST aredia Leukopenia- post chemo, FLUCTUATING post NEUPOGEN monitor closely post Neutropenia with occasional fever and chills. - resolved Anemia chronic disease SOB PLEURAL EFFUSIONS, NEG CYTOLOGY POST thoracentesis today Fluid overload diuretic cardiology F-UP Severe pain in the interscapular and lumbar sacral area most probably metastatic lesion possible femoral fracture. pathologic fracture of T9 with 60% of loss of height. Bony pain with multiple bony mets post XRT d/w dr Ocampo HYPOKALEMIA- REPLACED Obesity. Weight loss 60 pounds during the last 2 years COUGH, Upper respiratory infection pharyngitis with dry cough. POST ATB PMS. Myopia. Anxiety disorder. Claustrophobia. Posttraumatic stress disorder. Pain in the left forearm with a history of fracture of ulna and radius. Tachycardia Hypoxemia at night marginal improved after 2 L of nasal cannula oxygen. Deconditioning Pain syndrome. Today the most painful zone is in the right hip area. X-ray did not show any fractures. Hyponatremia- resolved Hypoalbuminemia Right sided cp after catheter insertion and correction less discomfort. Decreased edema both lower extremities with hypotension-improving Swelling of the left forearm-persist. Consultation Date/Type/Reason Admit Date/Time October 21, 2018 at 17:39 Initial Consult Date 10/21/[address] [facility] Requesting Provider: RUSS JEROME MD Date/Time of Note DATE: 12/19/18 TIME: 23:09 24 HR Interval Summary Free Text/Dictation all noted Exam/Review of Systems Exam Vitals Vital Signs Date Temp Pulse Resp B/P (MAP) Pulse Ox O2 O2 Flow FiO2 Time Delivery Rate 12/19/18 98.5 89 20 106/68 95 Room Air 19:20 (81) Intake and Output 12/18/18 12/18/18 12/19/18 1515:00 23:00 07:00 IntakeIntake Total 660 ml 220 ml 200 ml OutputOutput Total 1 ml BalanceBalance 660 ml 219 ml 200 ml Exam Constitutional: alert, oriented, well developed, distress, frail; No non-verbal, No obese, No other Psych: nl mood/affect, anxiety, depression; No no complaints, No confusion, No suicidal, No other Head: normocephalic, atraumatic; No lacerations, No hematomas, No other Eyes: EOMI, nl lids, PERRL; No nl conjunctiva, No nl sclera, No icteric, No fundi, disc, No other ENMT: nl lips & teeth, tympanic membranes; No nl external ears & nose, No nl nasal mucosa & septum, No mucosa pink and moist, No intubated, No other Neck: jvd, bruits; No supple, No non-tender, No masses, No thyromegaly, No nuchal rigidity, No other Respiratory: clear to auscultation (Upper parts with pleural friction rub lower parts.), congested cough, diminished breath sounds; No normal air movement, No crackles/rales, No intercostal retraction, No labored breathing, No respirations, No tactile fremitus, No wheezing, No other Cardiovascular: regular rate and rhythm, edema, systolic murmur; No nl pulses, No bruits, No diastolic murmur, No gallop, No irregular rhythm, No jugular venous distention (JVD), No murmurs/extra sounds, No rub, No S3, No S4, No other Gastrointestinal: soft, nl liver, spleen, bowel sounds; No non-tender, No ascites, No distended, No firm, No hepatomegaly, No mass, No rebound or guarding, No splenomegaly, No surgical scars, No tender, No other Musculoskeletal: joint tenderness, muscle tone, muscle weakness; No nl extremities to inspection, No nl gait and stance, No range of motion, No spine non-tender, No swelling, No other Extremities: No normal pulses, No calf tenderness, No cyanosis, No clubbing, No edema, No pitting pedal edema, No palpable cord, No tenderness, No other Neurological: CHEMICAL PROCESSOR 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; No nl mental status, No nl speech, No nl strength, No confused, No DTR's symmetric, No focal weakness, No lethargic, No numbness, No reflexes, No unresponsive, No other Skin: No nl turgor, No rash or lesions, No diaphoresis, No ecchymosis, No laceration, No puncture, No other Lymph: No nl lymph nodes, No enlarged, No nontender, No other Results Result Diagram: 12/18/18 0432 Results 24hrs Laboratory Tests Test 12/19/18 09:32 12/19/18 09:37 Total Bilirubin 0.4 Direct Bilirubin 0.00 Indirect Bilirubin 0.4 Aspartate Amino Transf (AST/SGOT) 42 Alanine Aminotransferase (ALT/SGPT) 48 Alkaline Phosphatase 105 Total Protein 6.3 Albumin 3.1 L Calcium Level 8.3 L Medications Medication Current Medications Morphine Sulfate (morphine) 2 mg Q4H PRN IV SEVERE PAIN LEVEL 7-10 Last administered on 12/19/18 22:54; Admin Dose 2 MG; Start 10/22/18 at 01:30 Phenol (Cepastat Lozenge) 1 lozenge Q1H PRN [place] sore throat Last administered on 10/31/18 18:34; Admin Dose 1 LOZENGE; Start 10/27/18 at 21:30 Metolazone (Zaroxolyn) 2.5 mg BID@0530,1730 PO Last administered on 12/19/18 17:24; Admin Dose 2.5 MG; Start 11/01/18 at 05:30 Enoxaparin Sodium (Lovenox) 40 mg DAILY SC Last administered on 11/23/18 09:02; Admin Dose 40 MG; Start 11/02/18 at 09:00; Status Hold Ibuprofen (Motrin) 400 mg Q6H PRN PO MILD PAIN(1-3) OR TEMP>38C Last adm inistered on 12/09/18 02:07; Admin Dose 400 MG; Start 11/07/18 at 12:20 Potassium Chloride (Klor-Con 20) 20 meq BID PO Last administered on 12/19/18 20:13; Admin Dose 20 MEQ; Start 11/11/18 at 09:00 Ondansetron HCl (Zofran Inj) 4 mg Q6H PRN IV NAUSEA AND/OR VOMITING Last administered on 12/19/18 20:26; Admin Dose 4 MG; Start 11/19/18 at 20:30 Diphenhydramine HCl (Benadryl) 25 mg Q8H PRN PO ITCHING Last administered on 12/19/18 02:45; Admin Dose 25 MG; Start 11/20/18 at 14:00 Bisacodyl (Dulcolax Supp) 10 mg Q8H PRN [place] CONSTIPATION; Start 11/20/18 at 17:30 Guaifenesin/ Codeine Phosphate (Robitussin Ac Liquid Cup) 10 ml Q4H PRN PO COUGH; Start 11/20/18 at 17:30 Magnesium Hydroxide (Milk Of Mag) 30 ml DAILY PRN PO CONSTIPATION Last administered on 11/24/18 08:45; Admin Dose 30 ML; Start 11/20/18 at 17:30 Simethicone (Mylicon) 80 mg Q8H PRN PO INDIGESTION; Start 11/20/18 at 23:30 Escitalopram Oxalate (Lexapro) 10 mg DAILY PO Last administered on 12/19/18 08:36; Admin Dose 10 MG; Start 11/24/18 at 19:00 Anastrozole (Arimidex) 1 mg DAILY PO Last administered on 12/19/18 08:38; Admin Dose 1 MG; Start 11/25/18 at 10:30 Carvedilol (Coreg) 3.125 mg BID PO Last administered on 12/19/18 08:37; Admin Dose 3.125 MG; Start 11/25/18 at 10:30 Docusate Sodium (Colace) 100 mg BID PO Last administered on 12/19/18 20:13; Admin Dose 100 MG; Start 11/25/18 at 10:30 Loratadine (Claritin) 10 mg DAILY PO Last administered on 12/19/18 08:36; Admin Dose 10 MG; Start 11/25/18 at 10:30 Pantoprazole (Protonix Tab) 40 mg AC BREAKFAST PO Last administered on 12/19/18 05:36; Admin Dose 40 MG; Start 11/25/18 at 10:30 Polyethylene Glycol (Miralax) 17 gm DAILY PO Last administered on 12/19/18 08:37; Admin Dose 17 GM; Start 11/25/18 at 10:30 Spironolactone (Aldactone) 50 mg DAILY PO Last administered on 12/19/18 08:37; Admin Dose 50 MG; Start 11/25/18 at 10:30 Diclofenac Sodium (Voltaren 1% Gel) 2 gm QID TP Last administered on 12/19/18 20:14; Admin Dose 2 GM; Start 11/27/18 at 22:00 Oxycodone HCl (Oxycontin) 20 mg BID PO Last administered on 12/19/18at 20:14; Admin Dose 20 MG; Start 12/01/18 at 09:00 Budesonide (Pulmicort (Neb)) 0.5 mg BID RESP THERAPY PRN HHN WHEEZING; Start 12/01/18 at 13:00 Zolpidem Tartrate (Ambien) 10 mg HS PRN PO INSOMNIA Last administered on 12/17/18at 00:40; Admin Dose 5 MG; Start 12/02/18 at 20:00 Ergocalciferol (Drisdol) 50,000 unit Q7D PO Last administered on 12/17/18at 16:50; Admin Dose 50,000 UNIT; Start 12/03/18 at 16:00 Ampicillin Sodium/ Sulbactam Sodium 100 ml @ 100 mls/hr Q6 IVPB Last administered on 12/19/18at 23:01; Admin Dose 100 MLS/HR; Start 12/12/18 at 17:00 Bumetanide (Bumex) 0.5 mg BID@0800,1400 PO Last administered on 12/19/18at 16:10; Admin Dose 0.5 MG; Start 12/19/18 at 15:14 DES DUNAWAY MD Dec 19, 2018 23:10
[2018-12-20] VITALS (7 sets, daily range): BP systolic 104–137; BP diastolic 61–81; PULSE 92–113; RESP 20–22
[2018-12-20] MEDS: AMPICILLIN/SULB 3 GM/NS (PMX) 100 ML IVPB SCH ×4 (05:10→20:36)
[2018-12-20] MEDS: PANTOPRAZOLE (EC) 40 MG TAB PO SCH (05:10)
[2018-12-20] MEDS: METOLAZONE 2.5 MG TAB PO SCH ×2 (05:11→17:41)
[2018-12-20] MEDS: LORATADINE 10 MG TAB PO SCH (08:51)
[2018-12-20] MEDS: ESCITALOPRAM 10 MG TAB PO SCH (08:51)
[2018-12-20] MEDS: POTASSIUM CHLORIDE (SR) 20 MEQ TAB PO SCH ×2 (08:51→20:36)
[2018-12-20] MEDS: SPIRONOLACTONE 50 MG TAB PO SCH (08:52)
[2018-12-20] MEDS: DOCUSATE SODIUM 100 MG CAP PO SCH ×2 (08:52→20:36)
[2018-12-20] MEDS: ANASTROZOLE 1 MG TAB PO SCH (08:53)
[2018-12-20] MEDS: oxyCODONE (CR) 20 MG TAB [oxyCONTIN] PO SCH ×2 (08:54→20:37)
[2018-12-20] MEDS: DICLOFENAC SODIUM 1% GEL 100 GM TUBE TP SCH ×4 (08:54→20:39)
[2018-12-20] MEDS: POLYETHYLENE GLYCOL 17 GM PACKET PO SCH (08:54)
[2018-12-20] MEDS: BUMETANIDE 0.5 MG TAB PO SCH ×2 (08:57→14:52)
[2018-12-20] MEDS ORDERED: BUMETANIDE 0.5 MG TAB PO SCH (09:00)
--- NOTE | 2018-12-20 12:04 | PN ---
Date/Time of Note Date/Time of Note DATE: 12/20/18 TIME: 11:57 Assessment/Plan VTE Prophylaxis Risk score (from Ns)>0 risk: 8 SCD applied (from Ns): Yes SCD contraindicated: other Pharmacological prophylaxis: other Pharm contraindication: other Lines/Catheters IV C[facility]ter [facility]from [facility] PORT-A-CATH Central line still needed: Yes Urinary Cath still in place: No Assessment/Plan Assessment/Plan -Bilateral mastoiditis, left more than the right. Continue Unasyn in-house, will change to Augmentin upon discharge. Dr Espinosa is following in ID consultation. -Metastatic left breast cancer with pulmonary, liver, and bone involvement. S/p chemo which is on hold now. Continued on Arimidex. Dr. Fernández is following in oncology consultation. -Recurrent pleural effusions requiring bilateral thoracentesis -Diastolic congestive heart failure, patient is currently on Aldactone, Bumex, and Coreg. Dr. Hurtado is following in cardiology consultation. -Acute on chronic pain, continue OxyContin twice daily and morphine as needed -Status post R hip arthroplasty due to lytic fracture -Status post recent fall with left wrist fracture that is being treated conservatively -Left lower extremity lymphedema -Obesity Further recommendations based on clinical course. Plan of care discussed with Dr. Peñaloza. Result Diagram: 12/20/18 0430 Results 24hrs Laboratory Tests Test 12/20/18 04:30 Sodium Level 139 Potassium Level 3.9 Chloride Level 97 Carbon Dioxide Level 34 H Anion Gap 8 Blood Urea Nitrogen 27 H Creatinine 0.90 Est Glomerular Filtrat Rate mL/min > 60 Glucose Level 106 Calcium Level 8.2 L Subjective 24 Hr Interval Summary Free Text/Dictation Off FLOOR - gone for Thoracentesis RN reported patient having dizziness x 1 before thoracentesis today. Patient felt better after using oxygen. RN is instructed to contact grinding mill operator if patient has c/o dizziness. will cont to monitor Exam/Review of Systems Exam Vitals Vital Signs Date Temp Pulse Resp B/P (MAP) Pulse Ox O2 O2 Flow FiO2 Time Delivery Rate 12/20/18 98.0 106 20 123/80 97 Room Air 11:41 (94) Intake and Output 12/19/18 12/19/18 12/20/18 1414:59 22:59 06:59 IntakeIntake Total 700 ml 100 ml 200 ml OutputOutput Total 925 ml BalanceBalance -225 ml 100 ml 200 ml Constitutional: alert, well developed Psych: nl mood/affect Head: atraumatic Eyes: nl lids, nl sclera ENMT: nl external ears & nose Neck: non-tender; No masses (s1s2) Cardiovascular: nl pulses, other Gastrointestinal: soft, non-tender Musculoskeletal: muscle weakness, range of motion Extremities: edema Neurological: nl speech, other (alert/reponsive) Results Results 24hrs Laboratory Tests Test 12/20/18 04:30 Sodium Level 139 Potassium Level 3.9 Chloride Level 97 Carbon Dioxide Level 34 H Anion Gap 8 Blood Urea Nitrogen 27 H Creatinine 0.90 Est Glomerular Filtrat Rate mL/min > 60 Glucose Level 106 Calcium Level 8.2 L Medications Medication Current Medications Morphine Sulfate (morphine) 2 mg Q4H PRN IV SEVERE PAIN LEVEL 7-10 Last administered on 12/19/18 22:54; Admin Dose 2 MG; Start 10/22/18 at 01:30 Phenol (Cepastat Lozenge) 1 lozenge Q1H PRN MT sore throat Last administered on 10/31/18 18:34; Admin Dose 1 LOZENGE; Start 10/27/18 at 21:30 Metolazone (Zaroxolyn) 2.5 mg BID@0530,1730 PO Last administered on 12/20/18 05:11; Admin Dose 2.5 MG; Start 11/01/18 at 05:30 Enoxaparin Sodium (Lovenox) 40 mg DAILY SC Last administered on 11/23/18 09:02; Admin Dose 40 MG; Start 11/02/18 at 09:00; Status Hold Ibuprofen (Motrin) 400 mg Q6H PRN PO MILD PAIN(1-3) OR TEMP>38C Last administer ed on 12/09/18 02:07; Admin Dose 400 MG; Start 11/07/18 at 12:20 Potassium Chloride (Klor-Con 20) 20 meq BID PO Last administered on 12/20/18 08:51; Admin Dose 20 MEQ; Start 11/11/18 at 09:00 Ondansetron HCl (Zofran Inj) 4 mg Q6H PRN IV NAUSEA AND/OR VOMITING Last administered on 12/19/18 20:26; Admin Dose 4 MG; Start 11/19/18 at 20:30 Diphenhydramine HCl (Benadryl) 25 mg Q8H PRN PO ITCHING Last administered on 12/19/18 02:45; Admin Dose 25 MG; Start 11/20/18 at 14:00 Bisacodyl (Dulcolax Supp) 10 mg Q8H PRN [place] CONSTIPATION; Start 11/20/18 at 17:30 Guaifenesin/ Codeine Phosphate (Robitussin Ac Liquid Cup) 10 ml Q4H PRN PO COUGH; Start 11/20/18 at 17:30 Magnesium Hydroxide (Milk Of Mag) 30 ml DAILY PRN PO CONSTIPATION Last administered on 11/24/18 08:45; Admin Dose 30 ML; Start 11/20/18 at 17:30 Simethicone (Mylicon) 80 mg Q8H PRN PO INDIGESTION; Start 11/20/18 at 23:30 Escitalopram Oxalate (Lexapro) 10 mg DAILY PO Last administered on 12/20/18 08:51; Admin Dose 10 MG; Start 11/24/18 at 19:00 Anastrozole (Arimidex) 1 mg DAILY PO Last administered on 12/20/18 08:53; Admin Dose 1 MG; Start 11/25/18 at 10:30 Carvedilol (Coreg) 3.125 mg BID PO Last administered on 12/20/18 08:52; Admin Dose 3.125 MG; Start 11/25/18 at 10:30 Docusate Sodium (Colace) 100 mg BID PO Last administered on 12/20/18 08:52; Admin Dose 100 MG; Start 11/25/18 at 10:30 Loratadine (Claritin) 10 mg DAILY PO Last administered on 12/20/18 08:51; Admin Dose 10 MG; Start 11/25/18 at 10:30 Pantoprazole (Protonix Tab) 40 mg AC BREAKFAST PO Last administered on 12/20/18 05:10; Admin Dose 40 MG; Start 11/25/18 at 10:30 Polyethylene Glycol (Miralax) 17 gm DAILY PO Last administered on 12/20/18 08:54; Admin Dose 17 GM; Start 11/25/18 at 10:30 Spironolactone (Aldactone) 50 mg DAILY PO Last administered on 12/20/18 08:52; Admin Dose 50 MG; Start 11/25/18 at 10:30 Diclofenac Sodium (Voltaren 1% Gel) 2 gm QID TP Last administered on 12/20/18 08:54; Admin Dose 2 GM; Start 11/27/18 at 22:00 Oxycodone HCl (Oxycontin) 20 mg BID PO Last administered on 12/20/18 08:54; Admin Dose 20 MG; Start 12/01/18 at 09:00 Budesonide (Pulmicort (Neb)) 0.5 mg BID RESP THERAPY PRN HHN WHEEZING; Start 12/01/18 at 13:00 Zolpidem Tartrate (Ambien) 10 mg HS PRN PO INSOMNIA Last administered on 12/17/18 00:40; Admin Dose 5 MG; Start 12/02/18 at 20:00 Ergocalciferol (Drisdol) 50,000 unit Q7D PO Last administered on 12/17/18 16:50; Admin Dose 50,000 UNIT; Start 12/03/18 at 16:00 Ampicillin Sodium/ Sulbactam Sodium 100 ml @ 100 mls/hr Q6 IVPB Last administered on 12/20/18 05:10; Admin Dose 100 MLS/HR; Start 12/12/18 at 17:00 Bumetanide (Bumex) 0.5 mg BID@0800,1400 PO Last administered on 12/20/18 08:57; Admin Dose 0.5 MG; Start 12/19/18 at 15:14 TOMMIE JAMES Dec 20, 2018 12:04
[2018-12-20] MEDS ORDERED: LIDOCAINE 1% (MPF) 5 ML VIAL ONE (12:24)
--- NOTE | 2018-12-20 14:09 | CONS ---
Assessment/Plan Assessment/Plan Hospital Course (Demo Recall) METASTATIC BREAST CANCER WITH PRIMARY ADENOCARCINOMA IN the left breast. MULTIPLE BONY METS, PULMONARY METS, LIVER METS CHEMO ON HOLD PT HAS A VERY GOOD RESPONSE TO CHEMO AND AI CONT AI FOR NOW CT ABD FOR RESTAGING 08.27.18, 12.04.18 - noted , stable POST aredia Leukopenia- post chemo, FLUCTUATING post NEUPOGEN monitor closely post Neutropenia with occasional fever and chills. - resolved Anemia chronic disease SOB PLEURAL EFFUSIONS, NEG CYTOLOGY POST RT SIDED THORACENTESIS PERFORMED BY DR CORTES. 700ML FLUID EXTRACTED . Fluid overload diuretic cardiology F-UP Severe pain in the interscapular and lumbar sacral area most probably metastatic lesion possible femoral fracture. pathologic fracture of T9 with 60% of loss of height. Bony pain with multiple bony mets post XRT d/w dr Ocampo HYPOKALEMIA- REPLACED Obesity. Weight loss 60 pounds during the last 2 years COUGH, Upper respiratory infection pharyngitis with dry cough. POST ATB PMS. Myopia. Anxiety disorder. Claustrophobia. Posttraumatic stress disorder. Pain in the left forearm with a history of fracture of ulna and radius. Tachycardia Hypoxemia at night marginal improved after 2 L of nasal cannula oxygen. Deconditioning Pain syndrome. Today the most painful zone is in the right hip area. X-ray did not show any fractures. Hyponatremia- resolved Hypoalbuminemia Right sided cp after catheter insertion and correction less discomfort. Decreased edema both lower extremities with hypotension-improving Swelling of the left forearm-persist. Consultation Date/Type/Reason Admit Date/Time October 21, 2018 at 17:39 Initial Consult Date 10/21/18 Type of Consult [facility] Requesting Provider: RUSS JEROME MD Date/Time of Note DATE: 12/20/18 TIME: 14:08 24 HR Interval Summary Free Text/Dictation all noted Exam/Review of Systems Exam Vitals Vital Signs Date Temp Pulse Resp B/P (MAP) Pulse Ox O2 O2 Flow FiO2 Time Delivery Rate 12/20/18 98.1 99 22 107/72 84 Room Air 12:46 (84) Intake and Output 12/19/18 12/19/18 12/20/18 1515:00 23:00 07:00 IntakeIntake Total 700 ml 100 ml 200 ml OutputOutput Total 925 ml BalanceBalance -225 ml 100 ml 200 ml Exam Constitutional: alert, oriented, well developed, distress, frail; No non-verbal, No obese, No other Psych: nl mood/affect, anxiety, depression; No no complaints, No confusion, No suicidal, No other Head: normocephalic, atraumatic; No lacerations, No hematomas, No other Eyes: EOMI, nl lids, PERRL; No nl conjunctiva, No nl sclera, No icteric, No fundi, disc, No other ENMT: nl lips & teeth, tympanic membranes; No nl external ears & nose, No nl nasal mucosa & septum, No mucosa pink and moist, No intubated, No other Neck: jvd, bruits; No supple, No non-tender, No masses, No thyromegaly, No nuchal rigidity, No other Respiratory: clear to auscultation (Upper parts with pleural friction rub lower parts.), congested cough, diminished breath sounds; No normal air movement, No crackles/rales, No intercostal retraction, No labored breathing, No respirations, No tactile fremitus, No wheezing, No other Cardiovascular: regular rate and rhythm, edema, systolic murmur; No nl pulses, No bruits, No diastolic murmur, No gallop, No irregular rhythm, No jugular venous distention (JVD), No murmurs/extra sounds, No rub, No S3, No S4, No other Gastrointestinal: soft, nl liver, spleen, bowel sounds; No non-tender, No ascites, No distended, No firm, No hepatomegaly, No mass, No rebound or guarding, No splenomegaly, No surgical scars, No tender, No other Musculoskeletal: joint tenderness, muscle tone, muscle weakness; No nl extremities to inspection, No nl gait and stance, No range of motion, No spine non-tender, No swelling, No other Extremities: No normal pulses, No calf tenderness, No cyanosis, No clubbing, No edema, No pitting pedal edema, No palpable cord, No tenderness, No other Neurological: 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; No nl mental status, No nl speech, No nl strength, No confused, No DTR's symmetric, No focal weakness, No lethargic, No numbness, No reflexes, No unresponsive, No other Skin: No nl turgor, No rash or lesions, No diaphoresis, No ecchymosis, No laceration, No puncture, No other Lymph: No nl lymph nodes, No enlarged, No nontender, No other Results Result Diagram: 12/20/18 0430 Results 24hrs Laboratory Tests Test 12/20/18 04:30 Sodium Level 139 Potassium Level 3.9 Chloride Level 97 Carbon Dioxide Level 34 H Anion Gap 8 Blood Urea Nitrogen 27 H Creatinine 0.90 Est Glomerular Filtrat Rate mL/min > 60 Glucose Level 106 Calcium Level 8.2 L Medications Medication Current Medications Morphine Sulfate (morphine) 2 mg Q4H PRN IV SEVERE PAIN LEVEL 7-10 Last administered on 12/19/18 22:54; Admin Dose 2 MG; Start 10/22/18 at 01:30 Phenol (Cepastat Lozenge) 1 lozenge Q1H PRN MT sore throat Last administered on 10/31/18 18:34; Admin Dose 1 LOZENGE; Start 10/27/18 at 21:30 Metolazone (Zaroxolyn) 2.5 mg BID@0530,1730 PO Last administered on 12/20/18 05:11; Admin Dose 2.5 MG; Start 11/01/18 at 05:30 Enoxaparin Sodium (Lovenox) 40 mg DAILY SC Last administered on 11/23/18 09:02; Admin Dose 40 MG; Start 11/02/18 at 09:00; Status Hold Ibuprofen (Motrin) 400 mg Q6H PRN PO MILD PAIN(1-3) OR TEMP>38C Last administered on 12/09/18 02:07; Admin Dose 400 MG; Start 11/07/18 at 12:20 Potassium Chloride (Klor-Con 20) 20 meq BID PO Last administered on 12/20/18 08:51; Admin Dose 20 MEQ; Start 11/11/18 at 09:00 Ondansetron HCl (Zofran Inj) 4 mg Q6H PRN IV NAUSEA AND/OR VOMITING Last administered on 12/19/18 20:26; Admin Dose 4 MG; Start 11/19/18 at 20:30 Diphenhydramine HCl (Benadryl) 25 mg Q8H PRN PO ITCHING Last administered on 12/19/18 02:45; Admin Dose 25 MG; Start 11/20/18 at 14:00 Bisacodyl (Dulcolax Supp) 10 mg Q8H PRN [place] CONSTIPATION; Start 11/20/18 at 17:30 Guaifenesin/ Codeine Phosphate (Robitussin Ac Liquid Cup) 10 ml Q4H PRN PO COUGH; Start 11/20/18 at 17:30 Magnesium Hydroxide (Milk Of Mag) 30 ml DAILY PRN PO CONSTIPATION Last administered on 11/24/18 08:45; Admin Dose 30 ML; Start 11/20/18 at 17:30 Simethicone (Mylicon) 80 mg Q8H PRN PO INDIGESTION; Start 11/20/18 at 23:30 Escitalopram Oxalate (Lexapro) 10 mg DAILY PO Last administered on 12/20/18 08:51; Admin Dose 10 MG; Start 11/24/18 at 19:00 Anastrozole (Arimidex) 1 mg DAILY PO Last administered on 12/20/18 08:53; Admin Dose 1 MG; Start 11/25/18 at 10:30 Carvedilol (Coreg) 3.125 mg BID PO Last administered on 12/20/18 08:52; Admin Dose 3.125 MG; Start 11/25/18 at 10:30 Docusate Sodium (Colace) 100 mg BID PO Last administered on 12/20/18 08:52; Admin Dose 100 MG; Start 11/25/18 at 10:30 Loratadine (Claritin) 10 mg DAILY PO Last administered on 12/20/18 08:51; Admin Dose 10 MG; Start 11/25/18 at 10:30 Pantoprazole (Protonix Tab) 40 mg AC BREAKFAST PO Last administered on 12/20/18 05:10; Admin Dose 40 MG; Start 11/25/18 at 10:30 Polyethylene Glycol (Miralax) 17 gm DAILY PO Last administered on 12/20/18 08:54; Admin Dose 17 GM; Start 11/25/18 at 10:30 Spironolactone (Aldactone) 50 mg DAILY PO Last administered on 12/20/18 08:52; Admin Dose 50 MG; Start 11/25/18 at 10:30 Diclofenac Sodium (Voltaren 1% Gel) 2 gm QID TP Last administered on 12/20/18 08:54; Admin Dose 2 GM; Start 11/27/18 at 22:00 Oxycodone HCl (Oxycontin) 20 mg BID PO Last administered on 12/20/18at 08:54; Admin Dose 20 MG; Start 12/01/18 at 09:00 Budesonide (Pulmicort (Neb)) 0.5 mg BID RESP THERAPY PRN HHN WHEEZING; Start 12/01/18 at 13:00 Zolpidem Tartrate (Ambien) 10 mg HS PRN PO INSOMNIA Last administered on 12/17/18at 00:40; Admin Dose 5 MG; Start 12/02/18 at 20:00 Ergocalciferol (Drisdol) 50,000 unit Q7D PO Last administered on 12/17/18at 16:50; Admin Dose 50,000 UNIT; Start 12/03/18 at 16:00 Ampicillin Sodium/ Sulbactam Sodium 100 ml @ 100 mls/hr Q6 IVPB Last administered on 12/20/18at 05:10; Admin Dose 100 MLS/HR; Start 12/12/18 at 17:00 Bumetanide (Bumex) 0.5 mg BID@0800,1400 PO Last administered on 12/20/18at 08:57; Admin Dose 0.5 MG; Start 12/19/18 at 15:14 DES DUNAWAY MD Dec 20, 2018 14:09
--- NOTE | 2018-12-20 17:55 | CONSI ---
Assessment/Plan Assessment/Plan Assessment/Plan (Recall) 58 F in the midst of a protracted hospitalization following an initial presentation on 10/21/18 for evaluation of respiratory symptoms. She is reported to have endorsed transient dizziness on 12/20, which reportedly improved with the administration of supplemental oxygen...for which neurology is consulted.. The clinical picture suggests a nonspecific dizziness in the context of systemic illness.. A focal INSPECTOR FINAL ASSEMBLY ELECTRICAL process is unlikely.. P: Continued medical management per primary PT/OT as necessary Will follow clinically, to recommend neurologic studies, as necessary Consultation Date/Type/Reason Admit Date/Time October 21, 2018 at 17:39 Type of Consult Neurology Reason for Consultation dizziness Requesting Provider: TOMMIE JAMES Date/Time of Note DATE: 12/20/18 TIME: 17:55 Hx of Present Illness 58 yo F who has been hospitalized for 2 months, following an initial presentation for evaluation of respiratory symptoms. She was reported to have transient dizziness on 12/20, for which neurology is consulted. The patient herself denies dizziness.. Staff report that she reported dizziness that improved following administration of supplemental oxygen. She is without complaint of neurologic symptoms at this time. per HPI Objective Exam Vitals Vital Signs Date Temp Pulse Resp B/P (MAP) Pulse Ox O2 O2 Flow FiO2 Time Delivery Rate 12/20/18 99.2 99 20 110/71 93 Room Air 16:47 (84) Intake and Output 12/19/18 12/19/18 12/20/18 1414:59 22:59 06:59 IntakeIntake Total 700 ml 100 ml 200 ml OutputOutput Total 925 ml BalanceBalance -225 ml 100 ml 200 ml Exam PE: Gen Appearance: No Apparent Distress HEENT: Normocephalic Cardiovascular: Regular rate Abdomen: Soft Extremities: Dry NE: The patient was alert and oriented. Language was normal. Fund of knowledge was normal. Pupils were equal and reactive to light. There was no afferent pupillary defect. Visual linares were normal. Funduscopic examination was limited. Extra-ocular movements were full. Ptosis was absent. There was no nystagmus. Facial sensation was normal. Face was symmetric with normal strength. Hearing was intact. Palate movements were normal. Neck strength was normal. There was normal tongue bulk and speed of movement. Tone was normal. Muscle bulk was normal. I did not see fasciculations. Arms and legs were symmetric. Vibration sensation was reduced distally. Temperature and pinprick sensation was normal. Rapid alternating movements were normal. There was no dysmetria. There was no intention tremor. Gait was deferred due to bedrest. Arm and leg reflexes were symmetric. Pickering's sign was absent. Plantar responses were flexor. Results Result Diagram: 12/20/18 0430 Results 24hrs Laboratory Tests Test 12/20/18 04:30 12/20/18 15:00 Sodium Level 139 Potassium Level 3.9 Chloride Level 97 Carbon Dioxide Level 34 H Anion Gap 8 Blood Urea Nitrogen 27 H Creatinine 0.90 Est Glomerular Filtrat Rate mL/min > 60 Glucose Level 106 Calcium Level 8.2 L Total Protein 6.2 Past Medical History Medical History: angina, cancer (Metastatic breast cancer), congestive heart failure, coronary artery disease, gallstones, GERD, GI bleed, hypertension, irritable bowel syndrome, pancreatitis, peptic ulcer disease Home Meds Reported Medications Tuberculin,Purif.prot.deriv. (Tubersol) 5 Tub Unit/0.1 Ml Vial, 0.1 ML ID, VIAL INJECT QHS EVERY 10 DAYS FOR PPD SCREENING FOR 11 DAYS READ IN 48 HOURS,IF NEGATIVE 2STEP IN 7 DAYS FROM FIRST DOSE. 10/21/18 Acetaminophen* (Tylenol*) 325 Mg Tablet, 650 MG PO Q4H PRN for PAIN LEVEL 1- 03/27, TAB 10/21/18 Spironolactone* (Aldactone*) 50 Mg Tablet, 50 MG PO DAILY, #30 TAB HOLD FOR SBP<110 10/21/18 Simethicone* (Mylicon*) 80 Mg Tab, 80 MG PO Q8H, TAB 10/21/18 Olopatadine* (Patanol* Ophth) 0.1% - 5 Ml Drops, 1 DROP BOTH EYES BID, EA 10/21/18 Hydrocodone/Acetaminophen ([place] 10-325 Tablet) 1 Each Tablet, 1 EACH PO Q4H, TAB 10/21/18 Loratadine* (Loratadine*) 10 Mg Tablet, 10 MG PO DAILY for FOR 3 MONTHS, #30 TAB 10/21/18 Lidocaine (Lidocaine) 1 Each Adh..patch, 1 EACH TP DAILY 10/21/18 Ipratropium-Albuterol (Ipratropium-Albuterol) 0.5-3 Mg/3 Ml Ampul.neb, 3 ML INHALATION Q8H, #30 VIAL 10/21/18 Furosemide* (Furosemide*) 40 Mg Tablet, 40 MG PO BID, TAB HOLD FOR SBP<110 10/21/18 Na Phos,M-B/Na Phos,Di-Ba (Fleet Enema Extra) Unknown Strength Enema, 1 APPLIC RC NEEDED for CONSTIPATION, ENEMA 10/21/18 Bisacodyl (Dulcolax) 10 Mg Supp.rect, 10 MG RC NEEDED, SUPP.RECT 10/21/18 Potassium Chloride* (Potassium Chloride*) 20 Meq Tablet.er, 20 MEQ PO DAILY, TAB.SA 09/09/18 Pantoprazole* (Pantoprazole*) 40 Mg Tablet.dr, 40 MG PO AC BREAKFAST, TAB 08/22/18 Oxycodone Hcl* (Oxycontin*) 20 Mg Tab.er.12h, 20 MG PO Q12, TAB 08/22/18 Amlodipine Besylate* (Norvasc*) 5 Mg Tablet, 5 MG PO DAILY, TAB HOLD FOR SBP <110. 08/22/18 Polyethylene Glycol* (Miralax*) 17 Gm Powd.pack, 17 GM PO DAILY, #60 PACKET 08/22/18 Magnesium Hydroxide* (Milk Of Magnesia*) 400 Mg/5 Ml Oral.susp, 30 ML PO DAILY, ML 08/22/18 Escitalopram Oxalate* (Lexapro*) 10 Mg Tablet, 10 MG PO DAILY, #30 TAB 08/22/18 Docusate Sodium* (Colace*) 100 Mg Capsule, 100 MG PO BID, #60 CAP 08/22/18 Carvedilol* (Carvedilol*) 3.125 Mg Tablet, 3.125 MG PO BID, #60 TAB HOLD FOR SBP <110 OR RI <60. GIVE WITH FOOD. 08/22/18 Benazepril Hcl* (Benazepril Hcl*) 5 Mg Tablet, 5 MG PO DAILY, #60 TAB HOLD FOR SBP <110. 08/22/18 Anastrozole* (Arimidex*) 1 Mg Tablet, 1 MG PO DAILY, #30 TAB 08/22/18 Medications Current Medications Morphine Sulfate (morphine) 2 mg Q4H PRN IV SEVERE PAIN LEVEL 7-10 Last administered on 12/19/18at 22:54; Admin Dose 2 MG; Start 5/7/19 at 01:30 Phenol (Cepastat Lozenge) 1 lozenge Q1H PRN MT sore throat Last administered on 10/31/18 18:34; Admin Dose 1 LOZENGE; Start 10/27/18 at 21:30 Metolazone (Zaroxolyn) 2.5 mg BID@0530,1730 PO Last administered on 12/20/18 17:41; Admin Dose 2.5 MG; Start 11/01/18 at 05:30 Enoxaparin Sodium (Lovenox) 40 mg DAILY SC Last administered on 11/23/18 09:02; Admin Dose 40 MG; Start 11/02/18 at 09:00; Status Hold Ibuprofen (Motrin) 400 mg Q6H PRN PO MILD PAIN(1-3) OR TEMP>38C Last administered on 12/09/18 02:07; Admin Dose 400 MG; Start 11/07/18 at 12:20 Potassium Chloride (Klor-Con 20) 20 meq BID PO Last administered on 12/20/18 08:51; Admin Dose 20 MEQ; Start 11/11/18 at 09:00 Ondansetron HCl (Zofran Inj) 4 mg Q6H PRN IV NAUSEA AND/OR VOMITING Last administered on 12/19/18 20:26; Admin Dose 4 MG; Start 11/19/18 at 20:30 Diphenhydramine HCl (Benadryl) 25 mg Q8H PRN PO ITCHING Last administered on 12/19/18 02:45; Admin Dose 25 MG; Start 11/20/18 at 14:00 Bisacodyl (Dulcolax Supp) 10 mg Q8H PRN [place] CONSTIPATION; Start 11/20/18 at 17:30 Guaifenesin/ Codeine Phosphate (Robitussin Ac Liquid Cup) 10 ml Q4H PRN PO COUGH; Start 11/20/18 at 17:30 Magnesium Hydroxide (Milk Of Mag) 30 ml DAILY PRN PO CONSTIPATION Last admi nistered on 11/24/18 08:45; Admin Dose 30 ML; Start 11/20/18 at 17:30 Simethicone (Mylicon) 80 mg Q8H PRN PO INDIGESTION; Start 11/20/18 at 23:30 Escitalopram Oxalate (Lexapro) 10 mg DAILY PO Last administered on 12/20/18 08:51; Admin Dose 10 MG; Start 11/24/18 at 19:00 Anastrozole (Arimidex) 1 mg DAILY PO Last administered on 12/20/18 08:53; Admin Dose 1 MG; Start 11/25/18 at 10:30 Carvedilol (Coreg) 3.125 mg BID PO Last administered on 12/20/18 08:52; Admin Dose 3.125 MG; Start 11/25/18 at 10:30 Docusate Sodium (Colace) 100 mg BID PO Last administered on 12/20/18 08:52; Admin Dose 100 MG; Start 11/25/18 at 10:30 Loratadine (Claritin) 10 mg DAILY PO Last administered on 12/20/18 08:51; Admin Dose 10 MG; Start 11/25/18 at 10:30 Pantoprazole (Protonix Tab) 40 mg AC BREAKFAST PO Last administered on 12/20/18 05:10; Admin Dose 40 MG; Start 11/25/18 at 10:30 Polyethylene Glycol (Miralax) 17 gm DAILY PO Last administered on 12/20/18 08:54; Admin Dose 17 GM; Start 11/25/18 at 10:30 Spironolactone (Aldactone) 50 mg DAILY PO Last administered on 12/20/18 08:52; Admin Dose 50 MG; Start 11/25/18 at 10:30 Diclofenac Sodium (Voltaren 1% Gel) 2 gm QID TP Last administered on 12/20/18 17:41; Admin Dose 2 GM; Start 11/27/18 at 22:00 Oxycodone HCl (Oxycontin) 20 mg BID PO Last administered on 12/20/18 08:54; Admin Dose 20 MG; Start 12/01/18 at 09:00 Budesonide (Pulmicort (Neb)) 0.5 mg BID RESP THERAPY PRN HHN WHEEZING; Start 12/01/18 at 13:00 Zolpidem Tartrate (Ambien) 10 mg HS PRN PO INSOMNIA Last administered on 12/17/18 00:40; Admin Dose 5 MG; Start 12/02/18 at 20:00 Ergocalciferol (Drisdol) 50,000 unit Q7D PO Last administered on 12/17/18at 16:50; Admin Dose 50,000 UNIT; Start 12/03/18 at 16:00 Ampicillin Sodium/ Sulbactam Sodium 100 ml @ 100 mls/hr Q6 IVPB Last adminis tered on 12/20/18at 14:51; Admin Dose 100 MLS/HR; Start 12/12/18 at 17:00 Bumetanide (Bumex) 0.5 mg BID@0800,1400 PO Last administered on 12/20/18at 14:52; Admin Dose 0.5 MG; Start 12/19/18 at 15:14 Miscellaneous Information 1 ea BID XX ; Start 12/20/18 at 18:00 Allergies: Coded Allergies: No Known Drug Allergies (Verified Allergy, Unknown, 10/21/18) Past Surgical History Past Surgical Hx: no surgical history Social History Alcohol Use: none Smoking Status: Never smoker Drug Use: none CINDY URENA Dec 20, 2018 17:55
[2018-12-20] MEDS: (Nursing Note) XX SCH ×2 (18:00→20:39)
[2018-12-21] MEDS: AMPICILLIN/SULB 3 GM/NS (PMX) 100 ML IVPB SCH ×5 (00:30→23:53)
[2018-12-21] MEDS: morphine 2 MG INJ IV PRN (01:51)
[2018-12-21 02:25] VITALS: BP 102/58; PULSE 94; RESP 18
[2018-12-21] MEDS: PANTOPRAZOLE (EC) 40 MG TAB PO SCH (05:40)
[2018-12-21] MEDS: METOLAZONE 2.5 MG TAB PO SCH ×2 (05:43→18:32)
[2018-12-21] MEDS: SPIRONOLACTONE 50 MG TAB PO SCH (08:15)
[2018-12-21] MEDS: POTASSIUM CHLORIDE (SR) 20 MEQ TAB PO SCH ×2 (08:15→20:50)
[2018-12-21] MEDS: BUMETANIDE 0.5 MG TAB PO SCH ×2 (08:16→14:03)
[2018-12-21] MEDS: DOCUSATE SODIUM 100 MG CAP PO SCH ×2 (08:16→20:50)
[2018-12-21] MEDS: oxyCODONE (CR) 20 MG TAB [oxyCONTIN] PO SCH ×2 (08:17→20:51)
[2018-12-21] MEDS: POLYETHYLENE GLYCOL 17 GM PACKET PO SCH (08:17)
[2018-12-21] MEDS: LORATADINE 10 MG TAB PO SCH (08:17)
[2018-12-21] MEDS: ESCITALOPRAM 10 MG TAB PO SCH (08:18)
[2018-12-21] MEDS: DICLOFENAC SODIUM 1% GEL 100 GM TUBE TP SCH ×4 (08:18→20:51)
[2018-12-21 08:21] VITALS: BP 119/74; PULSE 94; RESP 18
[2018-12-21] MEDS: ANASTROZOLE 1 MG TAB PO SCH (08:23)
[2018-12-21] MEDS: (Nursing Note) XX SCH ×2 (08:24→21:00)
--- NOTE | 2018-12-21 14:12 | CONS ---
Consult Date/Type/Reason Admit Date/Time October 21, 2018 at 17:39 Initial Consult Date 10/21/18 Requesting Provider: TOMMIE JAMES Date/Time of Note DATE: 12/21/18 TIME: 14:10 Subjective Pt feels ill -reports severe throat pain -will follow with PMD - might need ENT eval - still wuth some L:E edema - con't gentle diuresis. ROS: No fever, no chills, no nausea, no vomiting, no diarrhea/constipation + throat pain No recent weight changes No chest pain, no PND, no orthopnea No dizziness, blurred vision No thirst, no heat or cold intolerance Objective Vitals Vital Signs Date Temp Pulse Resp B/P (MAP) Pulse Ox O2 O2 Flow FiO2 Time Delivery Rate 12/21/18 98.0 94 18 119/74 91 08:21 (89) 12/20/18 Room Air 16:47 Intake and Output 12/20/18 12/20/18 12/21/18 1515:00 23:00 07:00 IntakeIntake Total 740 ml 500 ml BalanceBalance 740 ml 500 ml Exam General: WN/WD/NAD, AOx 3 HEENT: Unicetric/atraumatic/EOMI ( follow commands) - throat erythema NECK: JVD elevated, no thyromegaly Lymph: no lymphadenopathy HEART: regular with no S3, II/ systolic murmur at apex, PMI L LUNGS: Coarse sounds ABD: soft, NT, ND, +BS : Intact Neuro: non focal SKIN: chronic changes EXT: trace edema L > R Results/Medications Result Diagram: 12/21/18 0423 12/21/18 0423 Results 24 hrs Laboratory Tests Test 12/20/18 15:00 12/21/18 04:23 Total Protein 6.2 White Blood Count 5.8 # Red Blood Count 3.13 L Hemoglobin 10.5 L Hematocrit 30.5 L Mean Corpuscular Volume 97.4 Mean Corpuscular Hemoglobin 33.5 H Mean Corpuscular Hemoglobin Concent 34.4 Red Cell Distribution Width 12.9 Platelet Count 143 Mean Platelet Volume 9.3 Immature Granulocytes % 0.300 Neutrophils % 56.2 Lymphocytes % 29.9 Monocytes % 10.7 Eosinophils % 2.4 Basophils % 0.5 Nucleated Red Blood Cells % 0.0 Immature Granulocytes # 0.020 Neutrophils # 3.3 Lymphocytes # 1.7 Monocytes # 0.6 Eosinophils # 0.1 Basophils # 0.0 Nucleated Red Blood Cells # 0.0 Sodium Level 137 Potassium Level 3.4 L Chloride Level 95 L Carbon Dioxide Level 37 H Anion Gap 5 Blood Urea Nitrogen 28 H Creatinine 0.79 Est Glomerular Filtrat Rate mL/min > 60 Glucose Level 103 Calcium Level 7.7 L Home Meds Reported Medications Tuberculin,Purif.prot.deriv. (Tubersol) 5 Tub Unit/0.1 Ml Vial, 0.1 ML ID, VIAL INJECT QHS EVERY 10 DAYS FOR PPD SCREENING FOR 11 DAYS READ IN 48 HOURS,IF NEGATIVE 2STEP IN 7 DAYS FROM FIRST DOSE. 10/21/18 Acetaminophen* (Tylenol*) 325 Mg Tablet, 650 MG PO Q4H PRN for PAIN LEVEL 1- 03/27, TAB 10/21/18 Spironolactone* (Aldactone*) 50 Mg Tablet, 50 MG PO DAILY, #30 TAB HOLD FOR SBP<110 10/21/18 Simethicone* (Mylicon*) 80 Mg Tab, 80 MG PO Q8H, TAB 10/21/18 Olopatadine* (Patanol* Ophth) 0.1% - 5 Ml Drops, 1 DROP BOTH EYES BID, EA 10/21/18 Hydrocodone/Acetaminophen ([place] 10-325 Tablet) 1 Each Tablet, 1 EACH PO Q4H, TAB 10/21/18 Loratadine* (Loratadine*) 10 Mg Tablet, 10 MG PO DAILY for FOR 3 MONTHS, #30 TAB 10/21/18 Lidocaine (Lidocaine) 1 Each Adh..patch, 1 EACH TP DAILY 10/21/18 Ipratropium-Albuterol (Ipratropium-Albuterol) 0.5-3 Mg/3 Ml Ampul.neb, 3 ML INHALATION Q8H, #30 VIAL 10/21/18 Furosemide* (Furosemide*) 40 Mg Tablet, 40 MG PO BID, TAB HOLD FOR SBP<110 10/21/18 Na Phos,M-B/Na Phos,Di-Ba (Fleet Enema Extra) Unknown Strength Enema, 1 APPLIC RC NEEDED for CONSTIPATION, ENEMA 10/21/18 Bisacodyl (Dulcolax) 10 Mg Supp.rect, 10 MG RC NEEDED, SUPP.RECT 10/21/18 Potassium Chloride* (Potassium Chloride*) 20 Meq Tablet.er, 20 MEQ PO DAILY, TAB.SA 09/09/18 Pantoprazole* (Pantoprazole*) 40 Mg Tablet.dr, 40 MG PO AC BREAKFAST, TAB 08/22/18 Oxycodone Hcl* (Oxycontin*) 20 Mg Tab.er.12h, 20 MG PO Q12, TAB 08/22/18 Amlodipine Besylate* (Norvasc*) 5 Mg Tablet, 5 MG PO DAILY, TAB HOLD FOR SBP <110. 08/22/18 Polyethylene Glycol* (Miralax*) 17 Gm Powd.pack, 17 GM PO DAILY, #60 PACKET 08/22/18 Magnesium Hydroxide* (Milk Of Magnesia*) 400 Mg/5 Ml Oral.susp, 30 ML PO DAILY, ML 08/22/18 Escitalopram Oxalate* (Lexapro*) 10 Mg Tablet, 10 MG PO DAILY, #30 TAB 08/22/18 Docusate Sodium* (Colace*) 100 Mg Capsule, 100 MG PO BID, #60 CAP 08/22/18 Carvedilol* (Carvedilol*) 3.125 Mg Tablet, 3.125 MG PO BID, #60 TAB HOLD FOR SBP <110 OR WA <60. GIVE WITH FOOD. 08/22/18 Benazepril Hcl* (Benazepril Hcl*) 5 Mg Tablet, 5 MG PO DAILY, #60 TAB HOLD FOR SBP <110. 08/22/18 Anastrozole* (Arimidex*) 1 Mg Tablet, 1 MG PO DAILY, #30 TAB 08/22/18 Medications Current Medications Morphine Sulfate (morphine) 2 mg Q4H PRN IV SEVERE PAIN LEVEL 7-10 Last adm inistered on 12/21/18at 01:51; Admin Dose 2 MG; Start 10/22/18 at 01:30 Phenol (Cepastat Lozenge) 1 lozenge Q1H PRN MT sore throat Last administered on 10/31/18at 18:34; Admin Dose 1 LOZENGE; Start 10/27/18 at 21:30 Metolazone (Zaroxolyn) 2.5 mg BID@0530,1730 PO Last administered on 12/21/18at 05:43; Admin Dose 2.5 MG; Start 11/01/18 at 05:30 Enoxaparin Sodium (Lovenox) 40 mg DAILY SC Last administered on 11/23/18 09:02; Admin Dose 40 MG; Start 11/02/18 at 09:00; Status Hold Ibuprofen (Motrin) 400 mg Q6H PRN PO MILD PAIN(1-3) OR TEMP>38C Last administered on 12/09/18 02:07; Admin Dose 400 MG; Start 11/07/18 at 12:20 Potassium Chloride (Klor-Con 20) 20 meq BID PO Last administered on 12/21/18 08:15; Admin Dose 20 MEQ; Start 11/11/18 at 09:00 Ondansetron HCl (Zofran Inj) 4 mg Q6H PRN IV NAUSEA AND/OR VOMITING Last administered on 12/19/18 20:26; Admin Dose 4 MG; Start 11/19/18 at 20:30 Diphenhydramine HCl (Benadryl) 25 mg Q8H PRN PO ITCHING Last administered on 12/19/18 02:45; Admin Dose 25 MG; Start 11/20/18 at 14:00 Bisacodyl (Dulcolax Supp) 10 mg Q8H PRN [place] CONSTIPATION; Start 11/20/18 at 17:30 Guaifenesin/ Codeine Phosphate (Robitussin Ac Liquid Cup) 10 ml Q4H PRN PO COUGH; Start 11/20/18 at 17:30 Magnesium Hydroxide (Milk Of Mag) 30 ml DAILY PRN PO CONSTIPATION Last administ ered on 11/24/18 08:45; Admin Dose 30 ML; Start 11/20/18 at 17:30 Simethicone (Mylicon) 80 mg Q8H PRN PO INDIGESTION; Start 11/20/18 at 23:30 Escitalopram Oxalate (Lexapro) 10 mg DAILY PO Last administered on 12/21/18 08:18; Admin Dose 10 MG; Start 11/24/18 at 19:00 Anastrozole (Arimidex) 1 mg DAILY PO Last administered on 12/21/18 08:23; Admin Dose 1 MG; Start 11/25/18 at 10:30 Carvedilol (Coreg) 3.125 mg BID PO Last administered on 12/21/18 08:17; Admin Dose 3.125 MG; Start 11/25/18 at 10:30 Docusate Sodium (Colace) 100 mg BID PO Last administered on 12/21/18 08:16; Admin Dose 100 MG; Start 11/25/18 at 10:30 Loratadine (Claritin) 10 mg DAILY PO Last administered on 12/21/18 08:17; Admin Dose 10 MG; Start 11/25/18 at 10:30 Pantoprazole (Protonix Tab) 40 mg AC BREAKFAST PO Last administered on 12/21/18 05:40; Admin Dose 40 MG; Start 11/25/18 at 10:30 Polyethylene Glycol (Miralax) 17 gm DAILY PO Last administered on 12/21/18 08:17; Admin Dose 17 GM; Start 11/25/18 at 10:30 Spironolactone (Aldactone) 50 mg DAILY PO Last administered on 12/21/18 08:15; Admin Dose 50 MG; Start 11/25/18 at 10:30 Diclofenac Sodium (Voltaren 1% Gel) 2 gm QID TP Last administered on 12/21/18 12:25; Admin Dose 2 GM; Start 11/27/18 at 22:00 Oxycodone HCl (Oxycontin) 20 mg BID PO Last administered on 12/21/18 08:17; Admin Dose 20 MG; Start 12/01/18 at 09:00 Budesonide (Pulmicort (Neb)) 0.5 mg BID RESP THERAPY PRN HHN WHEEZING; Start 12/01/18 at 13:00 Zolpidem Tartrate (Ambien) 10 mg HS PRN PO INSOMNIA Last administered on 12/17/18 00:40; Admin Dose 5 MG; Start 12/02/18 at 20:00 Ergocalciferol (Drisdol) 50,000 unit Q7D PO Last administered on 12/17/18 16:50; Admin Dose 50,000 UNIT; Start 12/03/18 at 16:00 Ampicillin Sodium/ Sulbactam Sodium 100 ml @ 100 mls/hr Q6 IVPB Last administered on 12/21/18 12:25; Admin Dose 100 MLS/HR; Start 12/12/18 at 17:00 Bumetanide (Bumex) 0.5 mg BID@0800,1400 PO Last administered on 7/6/19at 14:03; Admin Dose 0.5 MG; Start 12/19/18 at 15:14 Miscellaneous Information 1 ea BID XX ; Start 12/20/18 at 18:00 Assessment/Plan Hospital Course (Demo Recall) 1. Congestive heart failure exacerbation would be diastolic, acute on chronic by most recent echo.-now s/p echo this admit with EF 60/small effusion - better now, responding to diuresis. CHF better, but suspect effusion is re-accumulated - stable. Bumex increased - con;t to follow. 2. Abnormal electrocardiogram with low voltage, rule out pericardial effusion - stable, no signs of tamponade. Treated. Off tele now. NO intervention planned. Stable. 3. Hypertension-currently borderline hypotension - treated with meds. BP stable overall. Tolerated Rx well. 4. Metastatic breast carcinoma- responded to chemo per Dr. Fernández - still poor prognosis. Traeted - hair beginning to grow back. Last effusion drainage a week ago - radiology to follow again. DR. Fernández Rx 5. History of pathologic fractures of the leg, status post open reduction and internal fixation - pain controlled. 6. Anemia - Rx per hem-onc team. Rx as needed. 7. Increased BNP consistent with patient's congestive heart failure. 8. Pericardial effusion-small by echo - on antin-Bx 8. SOB - now with increased Sx - now with sore throat - consider ENT eval. EMILY NELSON MD Dec 21, 2018 14:12
[2018-12-21 15:23] VITALS: BP 106/73; RESP 18
--- NOTE | 2018-12-21 15:48 | PN ---
Date/Time of Note Date/Time of Note DATE: 12/21/18 TIME: 15:40 Assessment/Plan VTE Prophylaxis Risk score (from Ns)>0 risk: 8 SCD applied (from Ns): Yes SCD contraindicated: other Pharmacological prophylaxis: other Lines/Catheters IV C[facility]ter Type (from [facility] Port-a-cath Central line still needed: Yes Urinary Cath still in place: No Assessment/Plan Assessment/Plan - Hypokalemia- replace K, fu BMP -Bilateral mastoiditis, left more than the right. Continue Unasyn in-house, will change to Augmentin upon discharge. Dr Espinosa is following in ID consultation. -Metastatic left breast cancer with pulmonary, liver, and bone involvement. S/p chemo which is on hold now. Continued on Arimidex. Dr. Fernández is following in oncology consultation. -Recurrent pleural effusions requiring bilateral thoracentesis -Diastolic congestive heart failure, patient is currently on Aldactone, Bumex, and Coreg. Dr. Hurtado is following in cardiology consultation. -Acute on chronic pain, continue OxyContin twice daily and morphine as needed -Status post R hip arthroplasty due to lytic fracture -Status post recent fall with left wrist fracture that is being treated conservatively -Left lower extremity lymphedema -Obesity Further recommendations based on clinical course. Plan of care discussed with Dr. Peñaloza. Result Diagram: 12/21/18 0423 12/21/18 0423 Results 24hrs Laboratory Tests Test 12/21/18 04:23 White Blood Count 5.8 # Red Blood Count 3.13 L Hemoglobin 10.5 L Hematocrit 30.5 L Mean Corpuscular Volume 97.4 Mean Corpuscular Hemoglobin 33.5 H Mean Corpuscular Hemoglobin Concent 34.4 Red Cell Distribution Width 12.9 Platelet Count 143 Mean Platelet Volume 9.3 Immature Granulocytes % 0.300 Neutrophils % 56.2 Lymphocytes % 29.9 Monocytes % 10.7 Eosinophils % 2.4 Basophils % 0.5 Nucleated Red Blood Cells % 0.0 Immature Granulocytes # 0.020 Neutrophils # 3.3 Lymphocytes # 1.7 Monocytes # 0.6 Eosinophils # 0.1 Basophils # 0.0 Nucleated Red Blood Cells # 0.0 Sodium Level 137 Potassium Level 3.4 L Chloride Level 95 L Carbon Dioxide Level 37 H Anion Gap 5 Blood Urea Nitrogen 28 H Creatinine 0.79 Est Glomerular Filtrat Rate mL/min > 60 Glucose Level 103 Calcium Level 7.7 L Subjective 24 Hr Interval Summary Free Text/Dictation no new events overnight Eyes: no complaints ENT: no complaints Respiratory: no complaints Cardiovascular: no complaints Gastrointestinal: decreased appetite Genitourinary: no complaints Musculoskeletal: restricted range of motion Neurologic: no complaints Endocrine: no complaints Exam/Review of Systems Exam Vitals Vital Signs Date Temp Pulse Resp B/P (MAP) Pulse Ox O2 O2 Flow FiO2 Time Delivery Rate 12/21/18 98.2 18 106/73 92 15:23 (84) 12/21/18 94 08:21 12/20/18 Room Air 16:47 Intake and Output 12/20/18 12/20/18 12/21/18 1414:59 22:59 06:59 IntakeIntake Total 740 ml 500 ml BalanceBalance 740 ml 500 ml Constitutional: alert, oriented Psych: nl mood/affect Head: normocephalic Eyes: nl lids, nl sclera ENMT: nl external ears & nose Neck: non-tender Respiratory: diminished breath sounds Cardiovascular: nl pulses, other (s1s2) Gastrointestinal: soft Musculoskeletal: muscle weakness, range of motion Extremities: edema Neurological: nl speech, other (alert/responsive) Results Results 24hrs Laboratory Tests Test 12/21/18 04:23 White Blood Count 5.8 # Red Blood Count 3.13 L Hemoglobin 10.5 L Hematocrit 30.5 L Mean Corpuscular Volume 97.4 Mean Corpuscular Hemoglobin 33.5 H Mean Corpuscular Hemoglobin Concent 34.4 Red Cell Distribution Width 12.9 Platelet Count 143 Mean Platelet Volume 9.3 Immature Granulocytes % 0.300 Neutrophils % 56.2 Lymphocytes % 29.9 Monocytes % 10.7 Eosinophils % 2.4 Basophils % 0.5 Nucleated Red Blood Cells % 0.0 Immature Granulocytes # 0.020 Neutrophils # 3.3 Lymphocytes # 1.7 Monocytes # 0.6 Eosinophils # 0.1 Basophils # 0.0 Nucleated Red Blood Cells # 0.0 Sodium Level 137 Potassium Level 3.4 L Chloride Level 95 L Carbon Dioxide Level 37 H Anion Gap 5 Blood Urea Nitrogen 28 H Creatinine 0.79 Est Glomerular Filtrat Rate mL/min > 60 Glucose Level 103 Calcium Level 7.7 L Medications Medication Current Medications Morphine Sulfate (morphine) 2 mg Q4H PRN IV SEVERE PAIN LEVEL 7-10 Last administered on 12/21/18 01:51; Admin Dose 2 MG; Start 10/22/18 at 01:30 Phenol (Cepastat Lozenge) 1 lozenge Q1H PRN [place] sore throat Last administered on 10/31/18 18:34; Admin Dose 1 LOZENGE; Start 10/27/18 at 21:30 Metolazone (Zaroxolyn) 2.5 mg BID@0530,1730 PO Last administered on 12/21/18 05:43; Admin Dose 2.5 MG; Start 11/01/18 at 05:30 Enoxaparin Sodium (Lovenox) 40 mg DAILY SC Last administered on 11/23/18 09:02; Admin Dose 40 MG; Start 11/02/18 at 09:00; Status Hold Ibuprofen (Motrin) 400 mg Q6H PRN PO MILD PAIN(1-3) OR TEMP>38C Last administered on 12/09/18 02:07; Admin Dose 400 MG; Start 11/07/18 at 12:20 Potassium Chloride (Klor-Con 20) 20 meq BID PO Last administered on 12/21/18 08:15; Admin Dose 20 MEQ; Start 11/11/18 at 09:00 Ondansetron HCl (Zofran Inj) 4 mg Q6H PRN IV NAUSEA AND/OR VOMITING Last administered on 12/19/18 20:26; Admin Dose 4 MG; Start 11/19/18 at 20:30 Diphenhydramine HCl (Benadryl) 25 mg Q8H PRN PO ITCHING Last administered on 12/19/18 02:45; Admin Dose 25 MG; Start 11/20/18 at 14:00 Bisacodyl (Dulcolax Supp) [address] CONSTIPATION; Start 11/20/18 at 17:30 Guaifenesin/ Codeine Phosphate (Robitussin Ac Liquid Cup) 10 ml Q4H PRN PO COUGH; Start 11/20/18 at 17:30 Magnesium Hydroxide (Milk Of Mag) 30 ml DAILY PRN PO CONSTIPATION Last administered on 11/24/18 08:45; Admin Dose 30 ML; Start 11/20/18 at 17:30 Simethicone (Mylicon) 80 mg Q8H PRN PO INDIGESTION; Start 11/20/18 at 23:30 Escitalopram Oxalate (Lexapro) 10 mg DAILY PO Last administered on 12/21/18 08:18; Admin Dose 10 MG; Start 11/24/18 at 19:00 Anastrozole (Arimidex) 1 mg DAILY PO Last administered on 12/21/18 08:23; Admin Dose 1 MG; Start 11/25/18 at 10:30 Carvedilol (Coreg) 3.125 mg BID PO Last administered on 12/21/18 08:17; Admin Dose 3.125 MG; Start 11/25/18 at 10:30 Docusate Sodium (Colace) 100 mg BID PO Last administered on 12/21/18 08:16; Admin Dose 100 MG; Start 11/25/18 at 10:30 Loratadine (Claritin) 10 mg DAILY PO Last administered on 12/21/18 08:17; Admin Dose 10 MG; Start 11/25/18 at 10:30 Pantoprazole (Protonix Tab) 40 mg AC BREAKFAST PO Last administered on 12/21/18 05:40; Admin Dose 40 MG; Start 11/25/18 at 10:30 Polyethylene Glycol (Miralax) 17 gm DAILY PO Last administered on 12/21/18 08:17; Admin Dose 17 GM; Start 11/25/18 at 10:30 Spironolactone (Aldactone) 50 mg DAILY PO Last administered on 12/21/18 08:15; Admin Dose 50 MG; Start 11/25/18 at 10:30 Diclofenac Sodium (Voltaren 1% Gel) 2 gm QID TP Last administered on 12/21/18 12:25; Admin Dose 2 GM; Start 11/27/18 at 22:00 Oxycodone HCl (Oxycontin) 20 mg BID PO Last administered on 12/21/18 08:17; Admin Dose 20 MG; Start 12/01/18 at 09:00 Budesonide (Pulmicort (Neb)) 0.5 mg BID RESP THERAPY PRN HHN WHEEZING; Start 12/01/18 at 13:00 Zolpidem Tartrate (Ambien) 10 mg HS PRN PO INSOMNIA Last administered on 12/17/18 00:40; Admin Dose 5 MG; Start 12/02/18 at 20:00 Ergocalciferol (Drisdol) 50,000 unit Q7D PO Last administered on 12/17/18at 16:50; Admin Dose 50,000 UNIT; Start 12/03/18 at 16:00 Ampicillin Sodium/ Sulbactam Sodium 100 ml @ 100 mls/hr Q6 IVPB Last administered on 12/21/18at 12:25; Admin Dose 100 MLS/HR; Start 12/12/18 at 17:00 Bumetanide (Bumex) 0.5 mg BID@0800,1400 PO Last administered on 12/21/18at 14:03; Admin Dose 0.5 MG; Start 12/19/18 at 15:14 Miscellaneous Information 1 ea BID XX ; Start 12/20/18 at 18:00 TOMMIE JAMES Dec 21, 2018 15:47
[2018-12-21] MEDS ORDERED: CEPASTAT LOZENGE MT PRN (16:00)
[2018-12-21 20:00] VITALS: BP 113/67; PULSE 86; RESP 18
[2018-12-22] MEDS: morphine 2 MG INJ IV PRN ×2 (00:02→23:51)
[2018-12-22 02:43] VITALS: BP 110/56; PULSE 87; RESP 18
[2018-12-22] MEDS: AMPICILLIN/SULB 3 GM/NS (PMX) 100 ML IVPB SCH ×4 (06:15→23:46)
[2018-12-22] MEDS: METOLAZONE 2.5 MG TAB PO SCH ×2 (06:18→17:44)
--- NOTE | 2018-12-22 07:53 | CONS ---
Assessment/Plan Assessment/Plan Assessment/Plan (Recall) 58 F in the midst of a protracted hospitalization following an initial presentation on 10/21/18 for evaluation of respiratory symptoms. She is reported to have endorsed transient dizziness on 12/20, which reportedly improved with the administration of supplemental oxygen...for which neurology is consulted.. The clinical picture suggests a nonspecific dizziness in the context of systemic illness.. 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 P: Continued medical management per primary PT/OT as necessary Will follow clinically, to recommend neurologic studies, as necessary Consultation Date/Type/Reason Admit Date/Time October 21, 2018 at 17:39 Type of Consult Neurology Reason for Consultation dizziness Requesting Provider: TOMMIE JAMES Date/Time of Note DATE: 12/22/18 TIME: 07:52 24 HR Interval Summary Free Text/Dictation Continues acute care Exam/Review of Systems Exam Vitals Vital Signs Date Temp Pulse Resp B/P (MAP) Pulse Ox O2 O2 Flow FiO2 Time Delivery Rate 12/22/18 98.5 87 18 110/56 92 02:43 (74) 12/20/18 Room Air 16:47 Intake and Output 12/21/18 12/21/18 12/22/18 1515:00 23:00 07:00 IntakeIntake Total 880 ml 400 ml 100 ml BalanceBalance 880 ml 400 ml 100 ml Results Result Diagram: 12/22/18 0449 12/22/18 0449 Results 24hrs Laboratory Tests Test 12/22/18 04:49 White Blood Count 6.1 Red Blood Count 3.36 L Hemoglobin 11.1 L Hematocrit 32.6 L Mean Corpuscular Volume 97.0 Mean Corpuscular Hemoglobin 33.0 Mean Corpuscular Hemoglobin Concent 34.0 Red Cell Distribution Width 12.9 Platelet Count 163 Mean Platelet Volume 9.6 Immature Granulocytes % 0.300 Neutrophils % 52.2 Lymphocytes % 30.8 Monocytes % 12.5 H Eosinophils % 3.5 Basophils % 0.7 Nucleated Red Blood Cells % 0.0 Immature Granulocytes # 0.020 Neutrophils # 3.2 Lymphocytes # 1.9 Monocytes # 0.8 Eosinophils # 0.2 Basophils # 0.0 Nucleated Red Blood Cells # 0.0 Sodium Level 137 Potassium Level 3.5 Chloride Level 97 Carbon Dioxide Level 35 H Anion Gap 5 Blood Urea Nitrogen 27 H Creatinine 0.79 Est Glomerular Filtrat Rate mL/min > 60 Glucose Level 94 Calcium Level 8.3 L Medications Medication Current Medications Morphine Sulfate (morphine) 2 mg Q4H PRN IV SEVERE PAIN LEVEL 7-10 Last administered on 12/22/18 00:02; Admin Dose 2 MG; Start 10/22/18 at 01:30 Phenol (Cepastat Lozenge) 1 lozenge Q1H PRN [place] sore throat Last administered on 10/31/18 18:34; Admin Dose 1 LOZENGE; Start 10/27/18 at 21:30 Metolazone (Zaroxolyn) 2.5 mg BID@7030,4350 PO Last administered on 12/22/18 06:18; Admin Dose 2.5 MG; Start 11/01/18 at 05:30 Enoxaparin Sodium (Lovenox) 40 mg DAILY SC Last administered on 11/23/18 09:02; Admin Dose 40 MG; Start 11/02/18 at 09:00; Status Hold Ibuprofen (Motrin) 400 mg Q6H PRN PO MILD PAIN(1-3) OR TEMP>38C Last administered on 12/09/18 02:07; Admin Dose 400 MG; Start 11/07/18 at 12:20 Potassium Chloride (Klor-Con 20) 20 meq BID PO Last administered on 12/21/18 20:50; Admin Dose 20 MEQ; Start 11/11/18 at 09:00 Diphenhydramine HCl (Benadryl) 25 mg Q8H PRN PO ITCHING Last administered on 02:45; Admin Dose 25 MG; Start 11/20/18 at 14:00 Bisacodyl (Dulcolax Supp) 10 mg Q8H PRN [place] CONSTIPATION; Start 11/20/18 at 17:30 Guaifenesin/ Codeine Phosphate (Robitussin Ac Liquid Cup) 10 ml Q4H PRN PO COUGH; Start 11/20/18 at 17:30 Magnesium Hydroxide (Milk Of Mag) 30 ml DAILY PRN PO CONSTIPATION Last administered on 11/24/18 08:45; Admin Dose 30 ML; Start 11/20/18 at 17:30 Simethicone (Mylicon) 80 mg Q8H PRN PO INDIGESTION; Start 11/20/18 at 23:30 Escitalopram Oxalate (Lexapro) 10 mg DAILY PO Last administered on 12/21/18 08:18; Admin Dose 10 MG; Start 11/24/18 at 19:00 Anastrozole (Arimidex) 1 mg DAILY PO Last administered on 12/21/18 08:23; Admin Dose 1 MG; Start 11/25/18 at 10:30 Carvedilol (Coreg) 3.125 mg BID PO Last administered on 12/21/18 20:51; Admin Dose 3.125 MG; Start 11/25/18 at 10:30 Docusate Sodium (Colace) 100 mg BID PO Last administered on 12/21/18 20:50; Admin Dose 100 MG; Start 11/25/18 at 10:30 Loratadine (Claritin) 10 mg DAILY PO Last administered on 12/21/18 08:17; Admin Dose 10 MG; Start 11/25/18 at 10:30 Pantoprazole (Protonix Tab) 40 mg AC BREAKFAST PO Last administered on 12/21/18 05:40; Admin Dose 40 MG; Start 11/25/18 at 10:30 Polyethylene Glycol (Miralax) 17 gm DAILY PO Last administered on 12/21/18 08:17; Admin Dose 17 GM; Start 11/25/18 at 10:30 Spironolactone (Aldactone) 50 mg DAILY PO Last administered on 12/21/18 08:15; Admin Dose 50 MG; Start 11/25/18 at 10:30 Diclofenac Sodium (Voltaren 1% Gel) 2 gm QID TP Last administered on 12/21/18 20:51; Admin Dose 2 GM; Start 11/27/18 at 22:00 Oxycodone HCl (Oxycontin) 20 mg BID PO Last administered on 12/21/18 20:51; Admin Dose 20 MG; Start 12/01/18 at 09:00 Budesonide (Pulmicort (Neb)) 0.5 mg BID RESP THERAPY PRN HHN WHEEZING; Start 12/01/18 at 13:00 Zolpidem Tartrate (Ambien) 10 mg HS PRN PO INSOMNIA Last administered on 12/17/18 00:40; Admin Dose 5 MG; Start 12/02/18 at 20:00 Ergocalciferol (Drisdol) 50,000 unit Q7D PO Last administered on 12/17/18at 16:50; Admin Dose 50,000 UNIT; Start 12/03/18 at 16:00 Ampicillin Sodium/ Sulbactam Sodium 100 ml @ 100 mls/hr Q6 IVPB Last administered on 12/22/18at 06:15; Admin Dose 100 MLS/HR; Start 12/12/18 at 17:00 Bumetanide (Bumex) 0.5 mg BID@0800,1400 PO Last administered on 12/21/18at 14:03; Admin Dose 0.5 MG; Start 12/19/18 at 15:14 Miscellaneous Information 1 ea BID XX ; Start 12/20/18 at 18:00 Phenol (Cepastat Lozenge) 1 lozenge Q2H PRN [place] SORE THROAT; Start 12/21/18 at 16:00 CINDY URENA Dec 22, 2018 07:53
[2018-12-22] MEDS: (Nursing Note) XX SCH ×2 (09:00→21:00)
[2018-12-22] MEDS: SPIRONOLACTONE 50 MG TAB PO SCH (09:38)
[2018-12-22] MEDS: DOCUSATE SODIUM 100 MG CAP PO SCH ×2 (09:38→21:47)
[2018-12-22] MEDS: ESCITALOPRAM 10 MG TAB PO SCH (09:38)
[2018-12-22] MEDS: LORATADINE 10 MG TAB PO SCH (09:38)
[2018-12-22] MEDS: oxyCODONE (CR) 20 MG TAB [oxyCONTIN] PO SCH ×2 (09:39→21:47)
[2018-12-22] MEDS: POTASSIUM CHLORIDE (SR) 20 MEQ TAB PO SCH ×2 (09:39→21:48)
[2018-12-22] MEDS: POLYETHYLENE GLYCOL 17 GM PACKET PO SCH (09:40)
[2018-12-22] MEDS: DICLOFENAC SODIUM 1% GEL 100 GM TUBE TP SCH ×4 (09:40→21:51)
[2018-12-22] MEDS: ANASTROZOLE 1 MG TAB PO SCH (09:40)
[2018-12-22] MEDS: BUMETANIDE 0.5 MG TAB PO SCH ×2 (09:46→13:51)
[2018-12-22] MEDS: PANTOPRAZOLE (EC) 40 MG TAB PO SCH (09:46)
[2018-12-22 10:37] VITALS: BP 133/83; PULSE 88; RESP 18
--- NOTE | 2018-12-22 11:10 | PN ---
Date/Time of Note Date/Time of Note DATE: 12/22/18 TIME: 11:10 Assessment/Plan VTE [place] [facility] [place]: 6 [place] [facility] [place] SCD contraindicated: other Pharmacological prophylaxis: other Pharm contraindication: other Lines/Catheters IV Catheter Type (from [facility] PORT--CATH Urinary Cath still in place: No Assessment/Plan Assessment/Plan - Hypokalemia- resolve -Bilateral mastoiditis, left more than the right. Continue Unasyn in-house, will change to Augmentin upon discharge. Dr Espinosa is following in ID consultation. -Metastatic left breast cancer with pulmonary, liver, and bone involvement. S/p chemo which is on hold now. Continued on Arimidex. Dr. Fernández is following in oncology consultation. -Recurrent pleural effusions requiring bilateral thoracentesis -Diastolic congestive heart failure, patient is currently on Aldactone, Bumex, and Coreg. Dr. Hurtado is following in cardiology consultation. -Acute on chronic pain, continue OxyContin twice daily and morphine as needed -Status post R hip arthroplasty due to lytic fracture -Status post recent fall with left wrist fracture that is being treated conservatively -Left lower extremity lymphedema -Obesity Further recommendations based on clinical course. Plan of care discussed with Dr. Peñaloza. Result Diagram: 12/22/1844812/22/18448 Results 24hrs Laboratory Tests Test 12/22/18 04:49 White Blood Count 6.1 Red Blood Count 3.36 L Hemoglobin 11.1 L Hematocrit 32.6 L Mean Corpuscular Volume 97.0 Mean Corpuscular Hemoglobin 33.0 Mean Corpuscular Hemoglobin Concent 34.0 Red Cell Distribution Width 12.9 Platelet Count 163 Mean Platelet Volume 9.6 Immature Granulocytes % 0.300 Neutrophils % 52.2 Lymphocytes % 30.8 Monocytes % 12.5 H Eosinophils % 3.5 Basophils % 0.7 Nucleated Red Blood Cells % 0.0 Immature Granulocytes # 0.020 Neutrophils # 3.2 Lymphocytes # 1.9 Monocytes # 0.8 Eosinophils # 0.2 Basophils # 0.0 Nucleated Red Blood Cells # 0.0 Sodium Level 137 Potassium Level 3.5 Chloride Level 97 Carbon Dioxide Level 35 H Anion Gap 5 Blood Urea Nitrogen 27 H Creatinine 0.79 Est Glomerular Filtrat Rate mL/min > 60 Glucose Level 94 Calcium Level 8.3 L Subjective 24 Hr Interval Summary Free Text/Dictation no new events overnight Eyes: no complaints ENT: no complaints Respiratory: no complaints Cardiovascular: no complaints Gastrointestinal: no complaints Genitourinary: no complaints Musculoskeletal: restricted range of motion Skin: no complaints Neurologic: no complaints Endocrine: no complaints Lymphatic: no complaints Psychological: nl mood/affect Exam/Review of Systems Exam Vitals Vital Signs Date Temp Pulse Resp B/P (MAP) Pulse Ox O2 O2 Flow FiO2 Time Delivery Rate 12/22/18 98.2 88 18 133/83 90 Room Air 10:37 (100) Intake and Output 12/21/18 12/21/18 12/22/18 1515:00 23:00 07:00 IntakeIntake Total 880 ml 400 ml 100 ml BalanceBalance 880 ml 400 ml 100 ml Constitutional: alert, well developed Psych: nl mood/affect Head: atraumatic Eyes: nl lids, nl sclera ENMT: nl external ears & nose Neck: non-tender Respiratory: diminished breath sounds (bilaerally atbases) Cardiovascular: nl pulses, other (s1s2) Gastrointestinal: soft Musculoskeletal: muscle weakness, range of motion Extremities: edema Neurological: nl speech Skin: nl turgor Results Results 24hrs Laboratory Tests Test 12/22/18 04:49 White Blood Count 6.1 Red Blood Count 3.36 L Hemoglobin 11.1 L Hematocrit 32.6 L Mean Corpuscular Volume 97.0 Mean Corpuscular Hemoglobin 33.0 Mean Corpuscular Hemoglobin Concent 34.0 Red Cell Distribution Width 12.9 Platelet Count 163 Mean Platelet Volume 9.6 Immature Granulocytes % 0.300 Neutrophils % 52.2 Lymphocytes % 30.8 Monocytes % 12.5 H Eosinophils % 3.5 Basophils % 0.7 Nucleated Red Blood Cells % 0.0 Immature Granulocytes # 0.020 Neutrophils # 3.2 Lymphocytes # 1.9 Monocytes # 0.8 Eosinophils # 0.2 Basophils # 0.0 Nucleated Red Blood Cells # 0.0 Sodium Level 137 Potassium Level 3.5 Chloride Level 97 Carbon Dioxide Level 35 H Anion Gap 5 Blood Urea Nitrogen 27 H Creatinine 0.79 Est Glomerular Filtrat Rate mL/min > 60 Glucose Level 94 Calcium Level 8.3 L Medications Medication Current Medications Morphine Sulfate (morphine) 2 mg Q4H PRN IV SEVERE PAIN LEVEL 7-10 Last administered on 12/22/18 00:02; Admin Dose 2 MG; Start 10/22/18 at 01:30 Phenol (Cepastat Lozenge) 1 lozenge Q1H PRN MT sore throat Last administered on 10/31/18 18:34; Admin Dose 1 LOZENGE; Start 10/27/18 at 21:30 Metolazone (Zaroxolyn) 2.5 mg BID@0530,1730 PO Last administered on 12/22/18 06:18; Admin Dose 2.5 MG; Start 11/01/18 at 05:30 Enoxaparin Sodium (Lovenox) 40 mg DAILY SC Last administered on 11/23/18 09:02; Admin Dose 40 MG; Start 11/02/18 at 09:00; Status Hold Ibuprofen (Motrin) 400 mg Q6H PRN PO MILD PAIN(1-3) OR TEMP>38C Last administered on 12/09/18 02:07; Admin Dose 400 MG; Start 11/07/18 at 12:20 Potassium Chloride (Klor-Con 20) 20 meq BID PO Last administered on 12/22/18 09:39; Admin Dose 20 MEQ; Start 11/11/18 at 09:00 Diphenhydramine HCl (Benadryl) 25 mg Q8H PRN PO ITCHING Last administered on 12/19/18 02:45; Admin Dose 25 MG; Start 11/20/18 at 14:00 Bisacodyl (Dulcolax Supp) 10 mg Q8H PRN [place] CONSTIPATION; Start 11/20/18 at 17:30 Guaifenesin/ Codeine Phosphate (Robitussin Ac Liquid Cup) 10 ml Q4H PRN PO COUGH; Start 11/20/18 at 17:30 Magnesium Hydroxide (Milk Of Mag) 30 ml DAILY PRN PO CONSTIPATION Last administered on 11/24/18 08:45; Admin Dose 30 ML; Start 11/20/18 at 17:30 Simethicone (Mylicon) 80 mg Q8H PRN PO INDIGESTION; Start 11/20/18 at 23:30 Escitalopram Oxalate (Lexapro) 10 mg DAILY PO Last administered on 12/22/18 09:38; Admin Dose 10 MG; Start 11/24/18 at 19:00 Anastrozole (Arimidex) 1 mg DAILY PO Last administered on 12/22/18 09:40; Admin Dose 1 MG; Start 11/25/18 at 10:30 Carvedilol (Coreg) 3.125 mg BID PO Last administered on 12/22/18 09:39; Admin Dose 3.125 MG; Start 11/25/18 at 10:30 Docusate Sodium (Colace) 100 mg BID PO Last administered on 12/22/18 09:38; Admin Dose 100 MG; Start 11/25/18 at 10:30 Loratadine (Claritin) 10 mg DAILY PO Last administered on 12/22/18 09:38; Admin Dose 10 MG; Start 11/25/18 at 10:30 Pantoprazole (Protonix Tab) 40 mg AC BREAKFAST PO Last administered on 09:46; Admin Dose 40 MG; Start 11/25/18 at 10:30 Polyethylene Glycol (Miralax) 17 gm DAILY PO Last administered on 12/22/18 09:40; Admin Dose 17 GM; Start 11/25/18 at 10:30 Spironolactone (Aldactone) 50 mg DAILY PO Last administered on 12/22/18 09:38; Admin Dose 50 MG; Start 11/25/18 at 10:30 Diclofenac Sodium (Voltaren 1% Gel) 2 gm QID TP Last administered on 12/22/18 09:40; Admin Dose 2 GM; Start 11/27/18 at 22:00 Oxycodone HCl (Oxycontin) 20 mg BID PO Last administered on 12/22/18 09:39; Admin Dose 20 MG; Start 12/01/18 at 09:00 Budesonide (Pulmicort (Neb)) 0.5 mg BID RESP THERAPY PRN HHN WHEEZING; Start 12/01/18 at 13:00 Zolpidem Tartrate (Ambien) 10 mg HS PRN PO INSOMNIA Last administered on 12/17/18 00:40; Admin Dose 5 MG; Start 12/02/18 at 20:00 Ergocalciferol (Drisdol) 50,000 unit Q7D PO Last administered on 12/17/18 16:50; Admin Dose 50,000 UNIT; Start 12/03/18 at 16:00 Ampicillin Sodium/ Sulbactam Sodium 100 ml @ 100 mls/hr Q6 IVPB Last administered on 12/22/18at 06:15; Admin Dose 100 MLS/HR; Start 12/12/18 at 17:00 Bumetanide (Bumex) 0.5 mg BID@0800,1400 PO Last administered on 12/22/18at 09:46; Admin Dose 0.5 MG; Start 12/19/18 at 15:14 Miscellaneous Information 1 ea BID XX ; Start 12/20/18 at 18:00 Phenol (Cepastat Lozenge) 1 lozenge Q2H PRN [place] SORE THROAT; Start 12/21/18 at 16:00 TOMMIE JAMES Dec 22, 2018 11:10
[2018-12-22] MEDS ORDERED: FLUCONAZOLE 100 MG TAB PO ONE (12:00)
--- NOTE | 2018-12-22 13:12 | CONS ---
Consult Date/Type/Reason Admit Date/Time October 21, 2018 at 17:39 Initial Consult Date 10/21/18 Requesting Provider: TOMMIE JAMES Date/Time of Note DATE: 12/22/18 TIME: 13:09 Subjective NO acute events - pt comfortable - still with throat pain - con't Rx - reasonable fluid status now. ROS: NO F/C/N/D - malaise Objective Vitals Vital Signs Date Temp Pulse Resp B/P (MAP) Pulse Ox O2 O2 Flow FiO2 Time Delivery Rate 12/22/18 98.2 88 18 133/83 90 Room Air 10:37 (100) Intake and Output 12/21/18 12/21/18 12/22/18 1515:00 23:00 07:00 IntakeIntake Total 880 ml 400 ml 100 ml BalanceBalance 880 ml 400 ml 100 ml Exam General: WN/WD/NAD, AOx 3 HEENT: Unicetric/atraumatic/EOMI (follow commands) NECK: JVD elevated, no thyromegaly Lymph: no lymphadenopathy HEART: regular with no S3, II/ systolic murmur at apex LUNGS: Coarse sounds ABD: soft, NT, ND, +BS : Intact Neuro: non focal SKIN: chronic changes EXT: trace edema, better Results/Medications Result Diagram: 12/22/1844812/22/18448 Results 24 hrs Laboratory Tests Test 12/22/18 04:49 White Blood Count 6.1 Red Blood Count 3.36 L Hemoglobin 11.1 L Hematocrit 32.6 L Mean Corpuscular Volume 97.0 Mean Corpuscular Hemoglobin 33.0 Mean Corpuscular Hemoglobin Concent 34.0 Red Cell Distribution Width 12.9 Platelet Count 163 Mean Platelet Volume 9.6 Immature Granulocytes % 0.300 Neutrophils % 52.2 Lymphocytes % 30.8 Monocytes % 12.5 H Eosinophils % 3.5 Basophils % 0.7 Nucleated Red Blood Cells % 0.0 Immature Granulocytes # 0.020 Neutrophils # 3.2 Lymphocytes # 1.9 Monocytes # 0.8 Eosinophils # 0.2 Basophils # 0.0 Nucleated Red Blood Cells # 0.0 Sodium Level 137 Potassium Level 3.5 Chloride Level 97 Carbon Dioxide Level 35 H Anion Gap 5 Blood Urea Nitrogen 27 H Creatinine 0.79 Est Glomerular Filtrat Rate mL/min > 60 Glucose Level 94 Calcium Level 8.3 L Home Meds Reported Medications Tuberculin,Purif.prot.deriv. (Tubersol) 5 Tub Unit/0.1 Ml Vial, 0.1 ML ID, VIAL INJECT QHS EVERY 10 DAYS FOR PPD SCREENING FOR 11 DAYS READ IN 48 HOURS,IF NEGATIVE 2STEP IN 7 DAYS FROM FIRST DOSE. 10/21/18 Acetaminophen* (Tylenol*) 325 Mg Tablet, 650 MG PO Q4H PRN for PAIN LEVEL 1- 03/27, TAB 10/21/18 Spironolactone* (Aldactone*) 50 Mg Tablet, 50 MG PO DAILY, #30 TAB HOLD FOR SBP<110 10/21/18 Simethicone* (Mylicon*) 80 Mg Tab, 80 MG PO Q8H, TAB 10/21/18 Olopatadine* (Patanol* Ophth) 0.1% - 5 Ml Drops, 1 DROP BOTH EYES BID, EA 10/21/18 Hydrocodone/Acetaminophen (Gaston 10-325 Tablet) 1 Each Tablet, 1 EACH PO Q4H, TAB 10/21/18 Loratadine* (Loratadine*) 10 Mg Tablet, 10 MG PO DAILY for FOR 3 MONTHS, #30 TAB 10/21/18 Lidocaine (Lidocaine) 1 Each Adh..patch, 1 EACH TP DAILY 10/21/18 Ipratropium-Albuterol (Ipratropium-Albuterol) 0.5-3 Mg/3 Ml Ampul.neb, 3 ML INHALATION Q8H, #30 VIAL 10/21/18 Furosemide* (Furosemide*) 40 Mg Tablet, 40 MG PO BID, TAB HOLD FOR SBP<110 10/21/18 Na Phos,M-B/Na Phos,Di-Ba (Fleet Enema Extra) Unknown Strength Enema, 1 APPLIC RC NEEDED for CONSTIPATION, ENEMA 10/21/18 Bisacodyl (Dulcolax) 10 Mg Supp.rect, 10 MG RC NEEDED, SUPP.RECT 10/21/18 Potassium Chloride* (Potassium Chloride*) 20 Meq Tablet.er, 20 MEQ PO DAILY, TAB.SA 09/09/18 Pantoprazole* (Pantoprazole*) 40 Mg Tablet.dr, 40 MG PO AC BREAKFAST, TAB 08/22/18 Oxycodone Hcl* (Oxycontin*) 20 Mg Tab.er.12h, 20 MG PO Q12, TAB 08/22/18 Amlodipine Besylate* (Norvasc*) 5 Mg Tablet, 5 MG PO DAILY, TAB HOLD FOR SBP <110. 08/22/18 Polyethylene Glycol* (Miralax*) 17 Gm Powd.pack, 17 GM PO DAILY, #60 PACKET 08/22/18 Magnesium Hydroxide* (Milk Of Magnesia*) 400 Mg/5 Ml Oral.susp, 30 ML PO DAILY, ML 08/22/18 Escitalopram Oxalate* (Lexapro*) 10 Mg Tablet, 10 MG PO DAILY, #30 TAB 08/22/18 Docusate Sodium* (Colace*) 100 Mg Capsule, 100 MG PO BID, #60 CAP 08/22/18 Carvedilol* (Carvedilol*) 3.125 Mg Tablet, 3.125 MG PO BID, #60 TAB HOLD FOR SBP <110 OR [place] <60. GIVE WITH FOOD. 08/22/18 Benazepril Hcl* (Benazepril Hcl*) 5 Mg Tablet, 5 MG PO DAILY, #60 TAB HOLD FOR SBP <110. 08/22/18 Anastrozole* (Arimidex*) 1 Mg Tablet, 1 MG PO DAILY, #30 TAB 08/22/18 Medications Current Medications Morphine Sulfate (morphine) 2 mg Q4H PRN IV SEVERE PAIN LEVEL 7-10 Last administered on 12/22/18at 00:02; Admin Dose 2 MG; Start 10/22/18 at 01:30 Phenol (Cepastat Lozenge) 1 lozenge Q1H PRN [place] sore throat Last administered on 10/31/18at 18:34; Admin Dose 1 LOZENGE; Start 10/27/18 at 21:30 Metolazone (Zaroxolyn) 2.5 mg BID@0530,1730 PO Last administered on 12/22/18at 06:18; Admin Dose 2.5 MG; Start 11/01/18 at 05:30 Enoxaparin Sodium (Lovenox) 40 mg DAILY SC Last administered on 11/23/18at 09:02; Admin Dose 40 MG; Start 11/02/18 at 09:00; Status Hold Ibuprofen (Motrin) 400 mg Q6H PRN PO MILD PAIN(1-3) OR TEMP>38C Last administered on 6/24/19at 02:07; Admin Dose 400 MG; Start 11/07/18 at 12:20 Potassium Chloride (Klor-Con 20) 20 meq BID PO Last administered on 12/22/18 09:39; Admin Dose 20 MEQ; Start 11/11/18 at 09:00 Diphenhydramine HCl (Benadryl) 25 mg Q8H PRN PO ITCHING Last administered on 12/19/18 02:45; Admin Dose 25 MG; Start 11/20/18 at 14:00 Bisacodyl (Dulcolax Supp) 10 mg Q8H PRN [place] CONSTIPATION; Start 11/20/18 at 17:30 Guaifenesin/ Codeine Phosphate (Robitussin Ac Liquid Cup) 10 ml Q4H PRN PO COUGH; Start 11/20/18 at 17:30 Magnesium Hydroxide (Milk Of Mag) 30 ml DAILY PRN PO CONSTIPATION Last administered on 11/24/18 08:45; Admin Dose 30 ML; Start 11/20/18 at 17:30 Simethicone (Mylicon) 80 mg Q8H PRN PO INDIGESTION; Start 11/20/18 at 23:30 Escitalopram Oxalate (Lexapro) 10 mg DAILY PO Last administered on 12/22/18 09 :38; Admin Dose 10 MG; Start 11/24/18 at 19:00 Anastrozole (Arimidex) 1 mg DAILY PO Last administered on 12/22/18 09:40; Admin Dose 1 MG; Start 11/25/18 at 10:30 Carvedilol (Coreg) 3.125 mg BID PO Last administered on 12/22/18 09:39; Admin Dose 3.125 MG; Start 11/25/18 at 10:30 Docusate Sodium (Colace) 100 mg BID PO Last administered on 12/22/18 09:38; Admin Dose 100 MG; Start 11/25/18 at 10:30 Loratadine (Claritin) 10 mg DAILY PO Last administered on 12/22/18 09:38; Admin Dose 10 MG; Start 11/25/18 at 10:30 Pantoprazole (Protonix Tab) 40 mg AC BREAKFAST PO Last administered on 12/22/18 09:46; Admin Dose 40 MG; Start 11/25/18 at 10:30 Polyethylene Glycol (Miralax) 17 gm DAILY PO Last administered on 12/22/18 09:40; Admin Dose 17 GM; Start 11/25/18 at 10:30 Spironolactone (Aldactone) 50 mg DAILY PO Last administered on 12/22/18 09:38; Admin Dose 50 MG; Start 11/25/18 at 10:30 Diclofenac Sodium (Voltaren 1% Gel) 2 gm QID TP Last administered on 12/22/18 12:27; Admin Dose 2 GM; Start 11/27/18 at 22:00 Oxycodone HCl (Oxycontin) 20 mg BID PO Last administered on 12/22/18 09:39; A dmin Dose 20 MG; Start 12/01/18 at 09:00 Budesonide (Pulmicort (Neb)) 0.5 mg BID RESP THERAPY PRN HHN WHEEZING; Start 12/01/18 at 13:00 Zolpidem Tartrate (Ambien) 10 mg HS PRN PO INSOMNIA Last administered on 12/17/18 00:40; Admin Dose 5 MG; Start 12/02/18 at 20:00 Ergocalciferol (Drisdol) 50,000 unit Q7D PO Last administered on 12/17/18 16:50; Admin Dose 50,000 UNIT; Start 12/03/18 at 16:00 Ampicillin Sodium/ Sulbactam Sodium 100 ml @ 100 mls/hr Q6 IVPB Last administered on 12/22/18 12:28; Admin Dose 100 MLS/HR; Start 12/12/18 at 17:00 Bumetanide (Bumex) 0.5 mg BID@0800,1400 PO Last administered on 12/22/18 09:46; Admin Dose 0.5 MG; Start 12/19/18 at 15:14 Miscellaneous Information 1 ea BID XX ; Start 12/20/18 at 18:00 Phenol (Cepastat Lozenge) 1 lozenge Q2H PRN [place] SORE THROAT; Start 12/21/18 at 16:00 Fluconazole (Diflucan) 100 mg DAILY PO ; Start 12/23/18 at 09:00; Stop 12/31/18 at 11:00 Assessment/Plan Hospital Course (Demo Recall) 1. Congestive heart failure exacerbation would be diastolic, acute on chronic by most recent echo.-now s/p echo this admit with EF 60/small effusion - better now, responding to diuresis. CHF better, but suspect effusion is re-accumulated - stable. Bumex increased - con;t to follow. Stable with current Rx. 2. Abnormal electrocardiogram with low voltage, rule out pericardial effusion - stable, no signs of tamponade. Treated. Off tele now. NO intervention planned. Stable. 3. Hypertension-currently borderline hypotension - treated with meds. BP stable overall. Tolerated Rx well. 4. Metastatic breast carcinoma- responded to chemo per Dr. Fernández - still poor prognosis. Traeted - hair beginning to grow back. Last effusion drainage a week ago - radiology to follow again. DR. Fernández Rx 5. History of pathologic fractures of the leg, status post open reduction and internal fixation - pain controlled. 6. Anemia - Rx per hem-onc team. Rx as needed. 7. Increased BNP consistent with patient's congestive heart failure. 8. Pericardial effusion-small by echo - on antin-Bx 8. SOB - now with increased Sx - now with sore throat - consider ENT eval. On anti-Bx now. EMILY NELSON MD Dec 22, 2018 13:12
[2018-12-22 15:24] VITALS: BP 115/67; PULSE 80; RESP 18
[2018-12-22 19:45] VITALS: BP 94/61; PULSE 87; RESP 18
--- NOTE | 2018-12-22 22:24 | CONS ---
Assessment/Plan Assessment/Plan Hospital Course (Demo Recall) METASTATIC BREAST CANCER WITH PRIMARY ADENOCARCINOMA IN the left breast. MULTIPLE BONY METS, PULMONARY METS, LIVER METS CHEMO ON HOLD PT HAS A VERY GOOD RESPONSE TO CHEMO AND AI CONT AI FOR NOW CT ABD FOR RESTAGING 08.27.18, 12.04.18 - noted , stable POST aredia Leukopenia- post chemo, FLUCTUATING post NEUPOGEN monitor closely post Neutropenia with occasional fever and chills. - resolved Anemia chronic disease SOB PLEURAL EFFUSIONS, NEG CYTOLOGY POST RT SIDED THORACENTESIS PERFORMED BY DR CORTES. 700ML FLUID EXTRACTED . Fluid overload diuretic cardiology F-UP Severe pain in the interscapular and lumbar sacral area most probably metastatic lesion possible femoral fracture. pathologic fracture of T9 with 60% of loss of height. Bony pain with multiple bony mets post XRT d/w dr Ocampo HYPOKALEMIA- REPLACED Obesity. Weight loss 60 pounds during the last 2 years COUGH, Upper respiratory infection pharyngitis with dry cough. POST ATB PMS. Myopia. Anxiety disorder. Claustrophobia. Posttraumatic stress disorder. Pain in the left forearm with a history of fracture of ulna and radius. Tachycardia Hypoxemia at night marginal improved after 2 L of nasal cannula oxygen. Deconditioning Pain syndrome. Today the most painful zone is in the right hip area. X-ray did not show any fractures. Hyponatremia- resolved Hypoalbuminemia Right sided cp after catheter insertion and correction less discomfort. Decreased edema both lower extremities with hypotension-improving Swelling of the left forearm-persist. Consultation Date/Type/Reason Admit Date/Time October 21, 2018 at 17:39 Initial Consult Date 10/21/18 Type of Consult [facility] Requesting Provider: TOMMIE JAMES Date/Time of Note DATE: 12/22/18 TIME: 22:24 Exam/Review of Systems Exam Vitals Vital Signs Date Temp Pulse Resp B/P (MAP) Pulse Ox O2 O2 Flow FiO2 Time Delivery Rate 12/22/18 98.3 87 18 94/61 (72) 95 19:45 12/22/18 Room Air 15:24 Intake and Output 12/21/18 12/21/18 12/22/18 1515:00 23:00 07:00 IntakeIntake Total 880 ml 400 ml 100 ml BalanceBalance 880 ml 400 ml 100 ml Results Result Diagram: 12/22/18 0449 12/22/18 0449 Results 24hrs Laboratory Tests Test 12/22/18 04:49 White Blood Count 6.1 Red Blood Count 3.36 L Hemoglobin 11.1 L Hematocrit 32.6 L Mean Corpuscular Volume 97.0 Mean Corpuscular Hemoglobin 33.0 Mean Corpuscular Hemoglobin Concent 34.0 Red Cell Distribution Width 12.9 Platelet Count 163 Mean Platelet Volume 9.6 Immature Granulocytes % 0.300 Neutrophils % 52.2 Lymphocytes % 30.8 Monocytes % 12.5 H Eosinophils % 3.5 Basophils % 0.7 Nucleated Red Blood Cells % 0.0 Immature Granulocytes # 0.020 Neutrophils # 3.2 Lymphocytes # 1.9 Monocytes # 0.8 Eosinophils # 0.2 Basophils # 0.0 Nucleated Red Blood Cells # 0.0 Sodium Level 137 Potassium Level 3.5 Chloride Level 97 Carbon Dioxide Level 35 H Anion Gap 5 Blood Urea Nitrogen 27 H Creatinine 0.79 Est Glomerular Filtrat Rate mL/min > 60 Glucose Level 94 Calcium Level 8.3 L Medications Medication Current Medications Morphine Sulfate (morphine) 2 mg Q4H PRN IV SEVERE PAIN LEVEL 7-10 Last administered on 12/22/18at 00:02; Admin Dose 2 MG; Start 10/22/18 at 01:30 Phenol (Cepastat Lozenge) 1 lozenge Q1H PRN [place] sore throat Last administered on 10/31/18at 18:34; Admin Dose 1 LOZENGE; Start 10/27/18 at 21:30 Metolazone (Zaroxolyn) 2.5 mg BID@1930,5370 PO Last administered on 12/22/18at 17:44; Admin Dose 2.5 MG; Start 11/01/18 at 05:30 Enoxaparin Sodium (Lovenox) 40 mg DAILY SC Last administered on 11/23/18 09:02; Admin Dose 40 MG; Start 11/02/18 at 09:00; Status Hold Ibuprofen (Motrin) 400 mg Q6H PRN PO MILD PAIN(1-3) OR TEMP>38C Last administered on 12/09/18 02:07; Admin Dose 400 MG; Start 11/07/18 at 12:20 Potassium Chloride (Klor-Con 20) 20 meq BID PO Last administered on 12/22/18at 21:48; Admin Dose 20 MEQ; Start 11/11/18 at 09:00 Simethicone (Mylicon) 80 mg Q8H PRN PO INDIGESTION; Start 11/20/18 at 23:30 Escitalopram Oxalate (Lexapro) 10 mg DAILY PO Last administered on 12/22/18 09:38; Admin Dose 10 MG; Start 11/24/18 at 19:00 Anastrozole (Arimidex) 1 mg DAILY PO Last administered on 12/22/18 09:40; Admin Dose 1 MG; Start 11/25/18 at 10:30 Carvedilol (Coreg) 3.125 mg BID PO Last administered on 12/22/18 21:50; Admin Dose 3.125 MG; Start 11/25/18 at 10:30 Docusate Sodium (Colace) 100 mg BID PO Last administered on 12/22/18 21:47; Admin Dose 100 MG; Start 11/25/18 at 10:30 Loratadine (Claritin) 10 mg DAILY PO Last administered on 12/22/18 09:38; Admin Dose 10 MG; Start 11/25/18 at 10:30 Pantoprazole (Protonix Tab) 40 mg AC BREAKFAST PO Last administered on 12/22/18 09:46; Admin Dose 40 MG; Start 11/25/18 at 10:30 Polyethylene Glycol (Miralax) 17 gm DAILY PO Last administered on 12/22/18 09:40; Admin Dose 17 GM; Start 11/25/18 at 10:30 Spironolactone (Aldactone) 50 mg DAILY PO Last administered on 12/22/18 09:38; Admin Dose 50 MG; Start 11/25/18 at 10:30 Diclofenac Sodium (Voltaren 1% Gel) 2 gm QID TP Last administered on 12/22/18 21:51; Admin Dose 2 GM; Start 11/27/18 at 22:00 Oxycodone HCl (Oxycontin) 20 mg BID PO Last administered on 12/22/18 21:47; Admin Dose 20 MG; Start 12/01/18 at 09:00 Budesonide (Pulmicort (Neb)) 0.5 mg BID RESP THERAPY PRN HHN WHEEZING; Start 12/01/18 at 13:00 Zolpidem Tartrate (Ambien) 10 mg HS PRN PO INSOMNIA Last administered on 12/17/18 00:40; Admin Dose 5 MG; Start 12/02/18 at 20:00 Ergocalciferol (Drisdol) 50,000 unit Q7D PO Last administered on 12/17/18 16:50; Admin Dose 50,000 UNIT; Start 12/03/18 at 16:00 Ampicillin Sodium/ Sulbactam Sodium 100 ml @ 100 mls/hr Q6 IVPB Last administered on 12/22/18at 17:44; Admin Dose 100 MLS/HR; Start 12/12/18 at 17:00 Bumetanide (Bumex) 0.5 mg BID@0800,1400 PO Last administered on 12/22/18 13:51; Admin Dose 0.5 MG; Start 12/19/18 at 15:14 Miscellaneous Information 1 ea BID XX ; Start 12/20/18 at 18:00 Phenol (Cepastat Lozenge) 1 lozenge Q2H PRN [place] SORE THROAT; Start 12/21/18 at 16:00 Fluconazole (Diflucan) 100 mg DAILY PO ; Start 12/23/18 at 09:00; Stop 12/31/18 at 11:00 DES DUNAWAY MD Dec 22, 2018 22:24
[2018-12-23 01:41] VITALS: BP 109/63; PULSE 94; RESP 18
[2018-12-23] MEDS: AMPICILLIN/SULB 3 GM/NS (PMX) 100 ML IVPB SCH ×3 (04:53→18:09)
[2018-12-23] MEDS: METOLAZONE 2.5 MG TAB PO SCH ×2 (04:59→18:09)
[2018-12-23] MEDS: PANTOPRAZOLE (EC) 40 MG TAB PO SCH (04:59)
[2018-12-23 08:17] VITALS: BP 120/71; PULSE 81; RESP 18
--- NOTE | 2018-12-23 08:34 | HP ---
Date/Time of Note Date/Time of Note DATE: 12/23/18 TIME: 08:33 Assessment/Plan VTE Prophylaxis Risk score (from Ns)>0 risk: 6 SCD applied (from [facility] [place]): No SCD contraindicated: other Pharmacological prophylaxis: LMWH Lines/Catheters IV Catheter Type [facility]from [facility] port-a-cath Central line still needed: Yes Urinary Cath still in place: No Reason Cath still needed: urinary retention Assessment/Plan Hospital Course Rrecurrent thoracentesis from left pleural cavity.Bronchitis got treated slowly. CHF improved but not totally gone. Continue current chemotherapy bronchodilator therapy correction of fluid his electrolytes and follow the algorithm for a total synthesis planning. About 800 cc of right pleural fluid to the creation improved breathing given more but patient is having frequent episodes of hypo-tension. Today the following the patient the last day before going to vacation doctor Deion is going to follow the patient in my absence. I discussed with Dr. Palomino the details of further management. Assessment/Plan 1. PRIMARY ADENOCARCINOMA of the left breast. MULTIPLE BONY METS, PULMONARY METS;LIVER METS CHEMO ON HOLD; PT HAS A VERY GOOD RESPONSE TO CHEMO AND AI 2. Severe pain in the interscapular and lumbar sacral area most probably metastatic lesion possible femoral fracture. pathologic fracture of T9 with 60% of loss of height. Neurosurgical f/u. 3. Obesity. 4. Weight loss 5. PMS. 6. Myopia. 7. Anemia chronic disease with a drop of her hematocrit to 27; Latest results 28. Will recheck tomorrow;Leukopenia.Thrombocytopenia; 8. Anxiety disorder. Claustrophobia. On Ativan to 1 mg every 8 as needed and Lexapro 10 mg daily. 9. Posttraumatic stress disorder. 10. Pain in the left forearm with a history of fracture of ulna and radius. 11. Tachycardia-resolved 12. Hypoxemia at night marginal improved after 2 L of nasal cannula oxygen. 13. Deconditioning 14. 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 MRI: 09/28/18:diffuse osseous metastatic disease with multiple pathologic compression fractures at least involving the T4, T5, T7, T9 and T11 levels. There is likely mild cortical breakthrough at several levels resulting in mild central canal narrowing. No gross evidence of cord compression is seen.. 15. Pain syndrome. Today the most painful zone is in the right hip area. 16. Hyponatremia-corrected. 17. Leucopenia-improved. 18. Neutropenia with occasional fever and chills. Last chemotherapy 5 days ago. 19. Hypoalbuminemia. 20.Right sided cp after catheter insertion and correction less discomfort. 21. Decreased edema both lower extremities with [id number] with Pleural and Pericardial effusion. 22. pain syndrome 23.bilateral pleural effusions ; s/p recurrent left and occasional right thoracentesis Reaccumulation of the pleural fluid. 24. Systolic over diastolic congestive heart failure with a right more than left lower extremity swelling with no DVT in latest venous Doppler. 25. Swelling of the left forearm-persist. Cellulitis of the left forearm with decreased edema anteriorly.-Today it is less edematous 26. Pathologic fracture of the right hip;s/p hemiarthroplasty of right hip . 27. Dizziness 28. Deconditioning 29. Memory impairment. 30. dry cough. 31. Decreased voice with wheezing. 32. Headaches 33. Hypokalemia- corrected 34. Status post (yesterday) thoracentesis from a left pleural cavity (800cc)with no immediate complications. 35. Status post right thoracentesis and 800 cc removal with no immediate complications. 36.Cholelythiasis 37.Pericardial effusion 38.Pain syndrome. 39.Bilateral mastoiditis, left more than the right. Continue Unasyn in-house, will change to Augmentin upon discharge. Dr Espinosa is following in ID consultation. 40.Acute on chronic pain, continue OxyContin twice daily and morphine as needed right lower extremity and left upper extremity lymphedema Result Diagram: 12/23/18 0456 12/23/18 0456 Results 24hrs Laboratory Tests Test 12/23/18 04:56 White Blood Count 7.0 Red Blood Count 3.56 L Hemoglobin 11.8 L Hematocrit 34.8 L Mean Corpuscular Volume 97.8 Mean Corpuscular Hemoglobin 33.1 H Mean Corpuscular Hemoglobin Concent 33.9 Red Cell Distribution Width 12.7 Platelet Count 195 Mean Platelet Volume 9.1 Immature Granulocytes % 0.100 Neutrophils % 48.6 Lymphocytes % 34.7 Monocytes % 12.2 H Eosinophils % 3.7 Basophils % 0.7 Nucleated Red Blood Cells % 0.0 Immature Granulocytes # 0.010 Neutrophils # 3.4 Lymphocytes # 2.4 Monocytes # 0.9 Eosinophils # 0.3 Basophils # 0.1 Nucleated Red Blood Cells # 0.0 Sodium Level 138 Potassium Level 4.3 Chloride Level 96 L Carbon Dioxide Level 35 H Anion Gap 7 Blood Urea Nitrogen 33 H Creatinine 0.87 Est Glomerular Filtrat Rate mL/min > 60 Glucose Level 101 Calcium Level 8.8 HPI/ROS Admit Date/Time Admit Date/Time October 21, 2018 at 17:39 Hx of Present Illness in service note. Patient was not transferred to the senior care facility. Another thoracentesis was performed 3 days ago most probably there was no fluid equivocation according to the report. Patient continues to be weak in pain. Difficulty to get up without support but is making heroic efforts with at least one person's help to get up and walk which is becoming more risky taking into account of her recent episodes of fall and new fracture of the left wrist. ROS Constitutional: improved, fatigue, nausea; No no complaints, No chills, No diaphoresis, No disoriented, No febrile, No poor po, No weight change, No other Eyes: No no complaints, No pain, No discharge, No redness, No visual change, No other ENT: congestion, other (Sore throat she feels that something is sticking in her throat when she is coughing she is unable to expectorate it.); No no complaints, No bleeding, No pain, No discharge, No dysphagia, No sore throat Respiratory: cough, pleuritic pain, shortness of breath; No no complaints, No pain, No sputum, No wheezing, No other Cardiovascular: edema, orthopenea, palpitations; No no complaints, No chest pain, No lightheadedness, No paroxysmal nocturnal dyspnea, No other Gastrointestinal: constipation, flatus, nausea; No no complaints, No pain, No blood, No decreased appetite, No diarrhea, No passing stool, No vomiting, No other Genitourinary: dysuria; No no complaints, No bleeding, No discharge, No flank pain, No hematuria, No other Musculoskeletal: back pain, bone/joint pain, neck pain; No no complaints, No restricted range of motion, No swelling, No other Skin: pruritis; No no complaints, No bruising, No erythema, No laceration, No rash, No skin lesions, No other Neurologic: No no complaints, No confusion, No dizziness, No focal-weakness, No headache, No syncope, No seizure, No other Endocrine: dry skin; No no complaints, No polyuria, No polydypsia, No temp intolerance, No weight change, No other Lymphatic: No no complaints, No adenopathy, No tender nodes, No lymphadema, No other Psychological: anxiety; No no complaints, No nl mood/affect, No confusion, No depression, No suicidal, No other Immunologic: No no complaints, No immunodeficiency, No pruritis, No rhinitis, No urticaria, No other PMH/Family/Social Past Medical History Medical History: angina, cancer (Metastatic breast cancer), congestive heart failure, coronary artery disease, gallstones, GERD, GI bleed, hypertension, irritable bowel syndrome, pancreatitis, peptic ulcer disease Medications Current Medications Morphine Sulfate (morphine) 2 mg Q4H PRN IV SEVERE PAIN LEVEL 7-10 Last administered on 12/22/18 23:51; Admin Dose 2 MG; Start 10/22/18 at 01:30 Phenol (Cepastat Lozenge) 1 lozenge Q1H PRN MT sore throat Last administered on 10/31/18 18:34; Admin Dose 1 LOZENGE; Start 10/27/18 at 21:30 Metolazone (Zaroxolyn) 2.5 mg BID@0530,1730 PO Last administered on 12/23/18 04:59; Admin Dose 2.5 MG; Start 11/01/18 at 05:30 Enoxaparin Sodium (Lovenox) 40 mg DAILY SC Last administered on 11/23/18 09:02; Admin Dose 40 MG; Start 11/02/18 at 09:00; Status Hold Ibuprofen (Motrin) 400 mg Q6H PRN PO MILD PAIN(1-3) OR TEMP>38C Last administered on 12/09/18 02:07; Admin Dose 400 MG; Start 11/07/18 at 12:20 Potassium Chloride (Klor-Con 20) 20 meq BID PO Last administered on 12/22/18 21:48; Admin Dose 20 MEQ; Start 11/11/18 at 09:00 Escitalopram Oxalate (Lexapro) 10 mg DAILY PO Last administered on 12/22/18 09:38; Admin Dose 10 MG; Start 11/24/18 at 19:00 Anastrozole (Arimidex) 1 mg DAILY PO Last administered on 12/22/18 09:40; Admin Dose 1 MG; Start 11/25/18 at 10:30 Carvedilol (Coreg) 3.125 mg BID PO Last administered on 12/22/18 21:50; Admin Dose 3.125 MG; Start 11/25/18 at 10:30 Docusate Sodium (Colace) 100 mg BID PO Last administered on 12/22/18 21:47; Admin Dose 100 MG; Start 11/25/18 at 10:30 Loratadine (Claritin) 10 mg DAILY PO Last administered on 12/22/18 09:38; Admin Dose 10 MG; Start 11/25/18 at 10:30 Pantoprazole (Protonix Tab) 40 mg AC BREAKFAST PO Last administered on 12/23/18 04:59; Admin Dose 40 MG; Start 11/25/18 at 10:30 Polyethylene Glycol (Miralax) 17 gm DAILY PO Last administered on 12/22/18 09:40; Admin Dose 17 GM; Start 11/25/18 at 10:30 Spironolactone (Aldactone) 50 mg DAILY PO Last administered on 12/22/18 09:38; Admin Dose 50 MG; Start 11/25/18 at 10:30 Diclofenac Sodium (Voltaren 1% Gel) 2 gm QID TP Last administered on 12/22/18 21:51; Admin Dose 2 GM; Start 11/27/18 at 22:00 Oxycodone HCl (Oxycontin) 20 mg BID PO Last administered on 12/22/18 21:47; Admin Dose 20 MG; Start 12/01/18 at 09:00 Budesonide (Pulmicort (Neb)) 0.5 mg BID RESP THERAPY PRN HHN WHEEZING; Start 12/01/18 at 13:00 Zolpidem Tartrate (Ambien) 10 mg HS PRN PO INSOMNIA Last administered on 12/17/18 00:40; Admin Dose 5 MG; Start 12/02/18 at 20:00 Ergocalciferol (Drisdol) 50,000 unit Q7D PO Last administered on 12/17/18 16:50; Admin Dose 50,000 UNIT; Start 12/03/18 at 16:00 Ampicillin Sodium/ Sulbactam Sodium 100 ml @ 100 mls/hr Q6 IVPB Last administered on 7/8/19at 04:53; Admin Dose 100 MLS/HR; Start 12/12/18 at 17:00 Bumetanide (Bumex) 0.5 mg BID@0800,1400 PO Last administered on 12/22/18at 13:51; Admin Dose 0.5 MG; Start 12/19/18 at 15:14 Miscellaneous Information 1 ea BID XX ; Start 12/20/18 at 18:00 Phenol (Cepastat Lozenge) 1 lozenge Q2H PRN MT SORE THROAT; Start 12/21/18 at 16:00 Fluconazole (Diflucan) 100 mg DAILY PO ; Start 12/23/18 at 09:00; Stop 12/31/18 at 11:00 Coded Allergies: No Known Drug Allergies (Verified Allergy, Unknown, 10/21/18) Past Surgical History Past Surgical Hx: no surgical history Family History Significant Family History: no pertinent family hx Social History Alcohol Use: none Smoking Status: Never smoker Drug Use: none Exam/Review of Systems Vital Signs Vitals Vital Signs Date Temp Pulse Resp B/P (MAP) Pulse Ox O2 O2 Flow FiO2 Time Delivery Rate 12/23/18 98.2 81 18 120/71 96 Room Air 08:17 (87) Intake and Output 12/22/18 12/22/18 12/23/18 1515:00 23:00 07:00 IntakeIntake Total 420 ml 220 ml 200 ml OutputOutput Total 1 ml BalanceBalance 420 ml 220 ml 199 ml Exam Constitutional: alert, oriented, well developed, distress, frail Psych: anxiety, depression; No no complaints, No nl mood/affect, No confusion, No suicidal, No other Head: normocephalic, atraumatic; No lacerations, No hematomas, No other Eyes: EOMI, nl lids, PERRL; No nl conjunctiva, No nl sclera, No icteric, No fundi, disc, No other ENMT: nl external ears & nose; No nl lips & teeth, No nl nasal mucosa & septum, No mucosa pink and moist, No intubated, No tympanic membranes, No other Neck: jvd, bruits, thyromegaly, nuchal rigidity; No supple, No non-tender, No masses, No other Respiratory: clear to auscultation (Upper parts of the lungs.), congested cough, diminished breath sounds (Parts of the lungs with friction rub.); No normal air movement, No crackles/rales, No intercostal retraction, No l abored breathing, No respirations, No tactile fremitus, No wheezing, No other Cardiovascular: regular rate and rhythm, edema (Right more than left lower extremity and left more the right upper extremity.); No nl pulses, No bruits, No diastolic murmur, No gallop, No irregular rhythm, No jugular venous distention (JVD), No murmurs/extra sounds, No rub, No systolic murmur, No S3, No S4, No other Gastrointestinal: soft, nl liver, spleen, bowel sounds, firm, rebound or guarding; No non-tender, No ascites, No distended, No hepatomegaly, No mass, No spl enomegaly, No surgical scars, No tender, No other Genitourinary - Female: nl adnexae, nl external genitalia; No CMT, No CVA tenderness, No uterus, No other Musculoskeletal: joint tenderness, muscle tone, muscle weakness; No nl extremities to inspection, No nl gait and stance, No range of motion, No spine non-tender, No swelling, No other Extremities: normal pulses, edema; No calf tenderness, No cyanosis, No clubbing, No pitting pedal edema, No palpable cord, No tenderness, No other RUSS JEROME MD Dec 23, 2018 08:34
[2018-12-23] MEDS: (Nursing Note) XX SCH ×2 (09:00→20:47)
[2018-12-23] MEDS: ESCITALOPRAM 10 MG TAB PO SCH (09:19)
[2018-12-23] MEDS: BUMETANIDE 0.5 MG TAB PO SCH ×2 (09:19→14:43)
[2018-12-23] MEDS: DOCUSATE SODIUM 100 MG CAP PO SCH ×2 (09:21→20:44)
[2018-12-23] MEDS: POTASSIUM CHLORIDE (SR) 20 MEQ TAB PO SCH ×2 (09:21→20:45)
[2018-12-23] MEDS: FLUCONAZOLE 100 MG TAB PO SCH (09:21)
[2018-12-23] MEDS: LORATADINE 10 MG TAB PO SCH (09:21)
[2018-12-23] MEDS: SPIRONOLACTONE 50 MG TAB PO SCH (09:22)
[2018-12-23] MEDS: oxyCODONE (CR) 20 MG TAB [oxyCONTIN] PO SCH ×2 (09:22→20:44)
[2018-12-23] MEDS: DICLOFENAC SODIUM 1% GEL 100 GM TUBE TP SCH ×4 (09:23→20:47)
[2018-12-23] MEDS: POLYETHYLENE GLYCOL 17 GM PACKET PO SCH (09:23)
[2018-12-23] MEDS: ANASTROZOLE 1 MG TAB PO SCH (09:26)
--- NOTE | 2018-12-23 11:16 | CONS ---
Assessment/Plan Assessment/Plan Assessment/Plan (Recall) 58 F in the midst of a protracted hospitalization following an initial presentation on 10/21/18 for evaluation of respiratory symptoms. She is reported to have endorsed transient dizziness on 12/20, which reportedly improved with the administration of supplemental oxygen...for which neurology is consulted.. The clinical picture suggests a nonspecific dizziness in the context of systemic illness.. A focal CAR BLOCKER process is unlikely.. P: Continued medical management per primary PT/OT as necessary Will sign off for now; please call w/ adnl ?s Consultation Date/Type/Reason Admit Date/Time October 21, 2018 at 17:39 Type of Consult Neurology Reason for Consultation dizziness Requesting Provider: TOMMIE JAMES Date/Time of Note DATE: 12/23/18 TIME: 11:16 24 HR Interval Summary Free Text/Dictation Continues acute care Exam/Review of Systems Exam Vitals Vital Signs Date Temp Pulse Resp B/P (MAP) Pulse Ox O2 O2 Flow FiO2 Time Delivery Rate 12/23/18 Nasal 2.0 09:01 Cannula 12/23/18 98.2 81 18 120/71 96 08:17 (87) Intake and Output 12/22/18 12/22/18 12/23/18 1515:00 23:00 07:00 IntakeIntake Total 420 ml 220 ml 200 ml OutputOutput Total 1 ml BalanceBalance 420 ml 220 ml 199 ml Results Result Diagram: 12/23/18 0456 12/23/18 0456 Results 24hrs Laboratory Tests Test 12/23/18 04:56 White Blood Count 7.0 Red Blood Count 3.56 L Hemoglobin 11.8 L Hematocrit 34.8 L Mean Corpuscular Volume 97.8 Mean Corpuscular Hemoglobin 33.1 H Mean Corpuscular Hemoglobin Concent 33.9 Red Cell Distribution Width 12.7 Platelet Count 195 Mean Platelet Volume 9.1 Immature Granulocytes % 0.100 Neutrophils % 48.6 Lymphocytes % 34.7 Monocytes % 12.2 H Eosinophils % 3.7 Basophils % 0.7 Nucleated Red Blood Cells % 0.0 Immature Granulocytes # 0.010 Neutrophils # 3.4 Lymphocytes # 2.4 Monocytes # 0.9 Eosinophils # 0.3 Basophils # 0.1 Nucleated Red Blood Cells # 0.0 Sodium Level 138 Potassium Level 4.3 Chloride Level 96 L Carbon Dioxide Level 35 H Anion Gap 7 Blood Urea Nitrogen 33 H Creatinine 0.87 Est Glomerular Filtrat Rate mL/min > 60 Glucose Level 101 Calcium Level 8.8 Medications Medication Current Medications Morphine Sulfate (morphine) 2 mg Q4H PRN IV SEVERE PAIN LEVEL 7-10 Last administered on 12/22/18 23:51; Admin Dose 2 MG; Start 10/22/18 at 01:30 Phenol (Cepastat Lozenge) 1 lozenge Q1H PRN MT sore throat Last administered on 10/31/18 18:34; Admin Dose 1 LOZENGE; Start 10/27/18 at 21:30 Metolazone (Zaroxolyn) 2.5 mg BID@0530,1730 PO Last administered on 12/23/18 04:59; Admin Dose 2.5 MG; Start 11/01/18 at 05:30 Enoxaparin Sodium (Lovenox) 40 mg DAILY SC Last administered on 11/23/18 09:02; Admin Dose 40 MG; Start 11/02/18 at 09:00; Status Hold Ibuprofen (Motrin) 400 mg Q6H PRN PO MILD PAIN(1-3) OR TEMP>38C Last administered on 12/09/18 02:07; Admin Dose 400 MG; Start 11/07/18 at 12:20 Potassium Chloride (Klor-Con 20) 20 meq BID PO Last administered on 12/23/18 09:21; Admin Dose 20 MEQ; Start 11/11/18 at 09:00 Escitalopram Oxalate (Lexapro) 10 mg DAILY PO Last administered on 12/23/18 09:19; Admin Dose 10 MG; Start 11/24/18 at 19:00 Anastrozole (Arimidex) 1 mg DAILY PO Last administered on 12/23/18 09:26; Admin Dose 1 MG; Start 11/25/18 at 10:30 Carvedilol (Coreg) 3.125 mg BID PO Last administered on 12/23/18 09:21; Admin Dose 3.125 MG; Start 11/25/18 at 10:30 Docusate Sodium (Colace) 100 mg BID PO Last administered on 12/23/18 09:21; Admin Dose 100 MG; Start 11/25/18 at 10:30 Loratadine (Claritin) 10 mg DAILY PO Last administered on 12/23/18 09:21; Admin Dose 10 MG; Start 11/25/18 at 10:30 Pantoprazole (Protonix Tab) 40 mg AC BREAKFAST PO Last administered on 04:59; Admin Dose 40 MG; Start 11/25/18 at 10:30 Polyethylene Glycol (Miralax) 17 gm DAILY PO Last administered on 12/23/18 09:23; Admin Dose 17 GM; Start 11/25/18 at 10:30 Spironolactone (Aldactone) 50 mg DAILY PO Last administered on 12/23/18 09:22; Admin Dose 50 MG; Start 11/25/18 at 10:30 Diclofenac Sodium (Voltaren 1% Gel) 2 gm QID TP Last administered on 12/23/18 09:23; Admin Dose 2 GM; Start 11/27/18 at 22:00 Oxycodone HCl (Oxycontin) 20 mg BID PO Last administered on 12/23/18 09:22; Admin Dose 20 MG; Start 12/01/18 at 09:00 Budesonide (Pulmicort (Neb)) 0.5 mg BID RESP THERAPY PRN HHN WHEEZING; Start 12/01/18 at 13:00 Zolpidem Tartrate (Ambien) 10 mg HS PRN PO INSOMNIA Last administered on 12/17/18 00:40; Admin Dose 5 MG; Start 12/02/18 at 20:00 Ergocalciferol (Drisdol) 50,000 unit Q7D PO Last administered on 12/17/18 16:50; Admin Dose 50,000 UNIT; Start 12/03/18 at 16:00 Ampicillin Sodium/ Sulbactam Sodium 100 ml @ 100 mls/hr Q6 IVPB Last administered on 12/23/18 04:53; Admin Dose 100 MLS/HR; Start 12/12/18 at 17:00 Bumetanide (Bumex) 0.5 mg BID@0800,1400 PO Last administered on 12/23/18 09:19; Admin Dose 0.5 MG; Start 12/19/18 at 15:14 Miscellaneous Information 1 ea BID XX ; Start 12/20/18 at 18:00 Phenol (Cepastat Lozenge) 1 lozenge Q2H PRN MT SORE THROAT; Start 12/21/18 at 16:00 Fluconazole (Diflucan) 100 mg DAILY PO Last administered on 12/23/18at 09:21; Admin Dose 100 MG; Start 12/23/18 at 09:00; Stop 12/31/18 at 11:00 CINDY URENA Dec 23, 2018 11:16
[2018-12-23 14:54] VITALS: BP 131/67; PULSE 89; RESP 18
--- NOTE | 2018-12-23 18:46 | CONS ---
Assessment/Plan Assessment/Plan Hospital Course (Demo Recall) IMPRESSION: 1. Congestive heart failure exacerbation would be diastolic, acute on chronic by most recent echo.-now s/p echo this admit with EF 60/small effusion 2. Abnormal electrocardiogram with low voltage, rule out pericardial effusion. 3. Hypertension-currently borderline hypotension 4. Metastatic breast carcinoma. 5. History of pathologic fractures of the leg, status post open reduction and internal fixation. 6. Anemia. 7. Increased BNP consistent with patient's congestive heart failure. 8. Pericardial effusion-small by echo 9. Edema-LE venous RAMÍREZ neg for DVT 10. Hypokalemia 11.Wrist fracture acute by films 11/20-conservative management at this time 12. Pleural effusion s/p recurrent thoracentesis last 12/04 14. dizziness-neuro following Recc: -On med-surg -Continued on metolazone BID with low dose PO bumex and aldactone with overall reasonable volume status and resolution of much of LLE edema -continue low dose coreg as tolerated only -continue conservative management of wrist fracture -? need for pleur-x catheter Consultation Date/Type/Reason Admit Date/Time October 21, 2018 at 17:39 Initial Consult Date 10/21/18 Type of Consult Cardiology Reason for Consultation CHF Requesting Provider: TOMMIE JAMES Date/Time of Note DATE: 12/23/18 TIME: 18:44 Exam/Review of Systems Vital Signs Vitals Vital Signs Date Temp Pulse Resp B/P (MAP) Pulse Ox O2 O2 Flow FiO2 Time Delivery Rate 12/23/18 98.1 89 18 131/67 99 Room Air 14:54 (88) 12/23/18 2.0 09:01 Intake and Output 12/22/18 12/22/18 12/23/18 1515:00 23:00 07:00 IntakeIntake Total 420 ml 220 ml 200 ml OutputOutput Total 1 ml BalanceBalance 420 ml 220 ml 199 ml Exam Exam Review of Systems: CONSTITUTIONAL: No fevers, chills. PULMONARY: No sob CARDIOVASCULAR: No chest pain/palpitations GASTROINTESTINAL: No nausea/vomiting. GENITOURINARY: No hematuria/dysuria. MUSCULOSKELETAL: No myagias/arthalgias. PSYCHIATRIC: The patient denies depression. NEUROLOGIC: No weakness Constitutional: other (sleeping, arousable) Psych: no complaints Head: normocephalic ENMT: mucosa pink and moist Neck: supple, jvd (9 cm water) Respiratory: diminished breath sounds (at bases/B) Cardiovascular: regular rate and rhythm Gastrointestinal: soft, non-tender Musculoskeletal: muscle weakness (generalized) Extremities: edema (LUR and RLE) Neurological: other (No focal deficits) Labs Result Diagram: 12/23/18 0456 12/23/18 0456 Results 24hrs Laboratory Tests Test 12/23/18 04:56 White Blood Count 7.0 Red Blood Count 3.56 L Hemoglobin 11.8 L Hematocrit 34.8 L Mean Corpuscular Volume 97.8 Mean Corpuscular Hemoglobin 33.1 H Mean Corpuscular Hemoglobin Concent 33.9 Red Cell Distribution Width 12.7 Platelet Count 195 Mean Platelet Volume 9.1 Immature Granulocytes % 0.100 Neutrophils % 48.6 Lymphocytes % 34.7 Monocytes % 12.2 H Eosinophils % 3.7 Basophils % 0.7 Nucleated Red Blood Cells % 0.0 Immature Granulocytes # 0.010 Neutrophils # 3.4 Lymphocytes # 2.4 Monocytes # 0.9 Eosinophils # 0.3 Basophils # 0.1 Nucleated Red Blood Cells # 0.0 Sodium Level 138 Potassium Level 4.3 Chloride Level 96 L Carbon Dioxide Level 35 H Anion Gap 7 Blood Urea Nitrogen 33 H Creatinine 0.87 Est Glomerular Filtrat Rate mL/min > 60 Glucose Level 101 Calcium Level 8.8 Medications Medications Current Medications Morphine Sulfate (morphine) 2 mg Q4H PRN IV SEVERE PAIN LEVEL 7-10 Last administered on 12/22/18at 23:51; Admin Dose 2 MG; Start 10/22/18 at 01:30 Phenol (Cepastat Lozenge) 1 lozenge Q1H PRN MT sore throat Last administered on 10/31/18at 18:34; Admin Dose 1 LOZENGE; Start 10/27/18 at 21:30 Metolazone (Zaroxolyn) 2.5 mg BID@0530,1730 PO Last administered on 12/23/18at 18 :09; Admin Dose 2.5 MG; Start 11/01/18 at 05:30 Enoxaparin Sodium (Lovenox) 40 mg DAILY SC Last administered on 11/23/18at 09:02; Admin Dose 40 MG; Start 11/02/18 at 09:00; Status Hold Ibuprofen (Motrin) 400 mg Q6H PRN PO MILD PAIN(1-3) OR TEMP>38C Last administered on 12/09/18 02:07; Admin Dose 400 MG; Start 11/07/18 at 12:20 Potassium Chloride (Klor-Con 20) 20 meq BID PO Last administered on 12/23/18 09:21; Admin Dose 20 MEQ; Start 11/11/18 at 09:00 Escitalopram Oxalate (Lexapro) 10 mg DAILY PO Last administered on 12/23/18 09:19; Admin Dose 10 MG; Start 11/24/18 at 19:00 Anastrozole (Arimidex) 1 mg DAILY PO Last administered on 12/23/18 09:26; Admin Dose 1 MG; Start 11/25/18 at 10:30 Carvedilol (Coreg) 3.125 mg BID PO Last administered on 12/23/18 09:21; Admin Dose 3.125 MG; Start 11/25/18 at 10:30 Docusate Sodium (Colace) 100 mg BID PO Last administered on 12/23/18 09:21; Admin Dose 100 MG; Start 11/25/18 at 10:30 Loratadine (Claritin) 10 mg DAILY PO Last administered on 12/23/18 09:21; Admin Dose 10 MG; Start 11/25/18 at 10:30 Pantoprazole (Protonix Tab) 40 mg AC BREAKFAST PO Last administered on 12/23/18 04:59; Admin Dose 40 MG; Start 11/25/18 at 10:30 Polyethylene Glycol (Miralax) 17 gm DAILY PO Last administered on 12/23/18 09:23; Admin Dose 17 GM; Start 11/25/18 at 10:30 Spironolactone (Aldactone) 50 mg DAILY PO Last administered on 12/23/18 09:22; Admin Dose 50 MG; Start 11/25/18 at 10:30 Diclofenac Sodium (Voltaren 1% Gel) 2 gm QID TP Last administered on 12/23/18 18:08; Admin Dose 2 GM; Start 11/27/18 at 22:00 Oxycodone HCl (Oxycontin) 20 mg BID PO Last administered on 12/23/18 09:22; Admin Dose 20 MG; Start 12/01/18 at 09:00 Budesonide (Pulmicort (Neb)) 0.5 mg BID RESP THERAPY PRN HHN WHEEZING; Start 12/01/18 at 13:00 Zolpidem Tartrate (Ambien) 10 mg HS PRN PO INSOMNIA Last administered on 12/17/18at 00:40; Admin Dose 5 MG; Start 12/02/18 at 20:00 Ergocalciferol (Drisdol) 50,000 unit Q7D PO Last administered on 12/17/18at 16:50; Admin Dose 50,000 UNIT; Start 12/03/18 at 16:00 Ampicillin Sodium/ Sulbactam Sodium 100 ml @ 100 mls/hr Q6 IVPB Last administered on 12/23/18 18:09; Admin Dose 100 MLS/HR; Start 12/12/18 at 17:00 Bumetanide (Bumex) 0.5 mg BID@0800,1400 PO Last administered on 12/23/18at 14:43; Admin Dose 0.5 MG; Start 12/19/18 at 15:14 Miscellaneous Information 1 ea BID XX ; Start 12/20/18 at 18:00 Phenol (Cepastat Lozenge) 1 lozenge Q2H PRN MT SORE THROAT; Start 12/21/18 at 16:00 Fluconazole (Diflucan) 100 mg DAILY PO Last administered on 12/23/18at 09:21; Admin Dose 100 MG; Start 12/23/18 at 09:00; Stop 12/31/18 at 11:00 KAMILA TERESA Dec 23, 2018 18:45
[2018-12-23 20:33] VITALS: BP 111/72; PULSE 94; RESP 19
--- NOTE | 2018-12-23 23:32 | CONS ---
Assessment/Plan Assessment/Plan Hospital Course (Demo Recall) METASTATIC BREAST CANCER WITH PRIMARY ADENOCARCINOMA IN the left breast. MULTIPLE BONY METS, PULMONARY METS, LIVER METS CHEMO ON HOLD PT HAS A VERY GOOD RESPONSE TO CHEMO AND AI CONT AI FOR NOW CT ABD FOR RESTAGING 08.27.18, 12.04.18 - noted , stable POST aredia Leukopenia- post chemo, FLUCTUATING post NEUPOGEN monitor closely post Neutropenia with occasional fever and chills. - resolved Anemia chronic disease SOB PLEURAL EFFUSIONS, NEG CYTOLOGY POST RT SIDED THORACENTESIS PERFORMED BY DR CORTES. 700ML FLUID EXTRACTED . Fluid overload diuretic cardiology F-UP Severe pain in the interscapular and lumbar sacral area most probably metastatic lesion possible femoral fracture. pathologic fracture of T9 with 60% of loss of height. Bony pain with multiple bony mets post XRT d/w dr Ocampo HYPOKALEMIA- REPLACED Obesity. Weight loss 60 pounds during the last 2 years COUGH, Upper respiratory infection pharyngitis with dry cough. POST ATB PMS. Myopia. Anxiety disorder. Claustrophobia. Posttraumatic stress disorder. Pain in the left forearm with a history of fracture of ulna and radius. Tachycardia Hypoxemia at night marginal improved after 2 L of nasal cannula oxygen. Deconditioning Pain syndrome. Today the most painful zone is in the right hip area. X-ray did not show any fractures. Hyponatremia- resolved Hypoalbuminemia Right sided cp after catheter insertion and correction less discomfort. Decreased edema both lower extremities with hypotension-improving Swelling of the left forearm-persist. Consultation Date/Type/Reason Admit Date/Time October 21, 2018 at 17:39 Initial Consult Date 10/21/18 Type of Consult [facility] Requesting Provider: TOMMIE JAMES Date/Time of Note DATE: 12/23/18 TIME: 23:32 Exam/Review of Systems Exam Vitals Vital Signs Date Temp Pulse Resp B/P (MAP) Pulse Ox O2 O2 Flow FiO2 Time Delivery Rate 12/23/18 98.6 94 19 111/72 92 20:33 (85) 12/23/18 Room Air 14:54 12/23/18 2.0 09:01 Intake and Output 12/22/18 12/22/18 12/23/18 1515:00 23:00 07:00 IntakeIntake Total 420 ml 220 ml 200 ml OutputOutput Total 1 ml BalanceBalance 420 ml 220 ml 199 ml Results Result Diagram: 12/23/18 0456 12/23/18 0456 Results 24hrs Laboratory Tests Test 12/23/18 04:56 White Blood Count 7.0 Red Blood Count 3.56 L Hemoglobin 11.8 L Hematocrit 34.8 L Mean Corpuscular Volume 97.8 Mean Corpuscular Hemoglobin 33.1 H Mean Corpuscular Hemoglobin Concent 33.9 Red Cell Distribution Width 12.7 Platelet Count 195 Mean Platelet Volume 9.1 Immature Granulocytes % 0.100 Neutrophils % 48.6 Lymphocytes % 34.7 Monocytes % 12.2 H Eosinophils % 3.7 Basophils % 0.7 Nucleated Red Blood Cells % 0.0 Immature Granulocytes # 0.010 Neutrophils # 3.4 Lymphocytes # 2.4 Monocytes # 0.9 Eosinophils # 0.3 Basophils # 0.1 Nucleated Red Blood Cells # 0.0 Sodium Level 138 Potassium Level 4.3 Chloride Level 96 L Carbon Dioxide Level 35 H Anion Gap 7 Blood Urea Nitrogen 33 H Creatinine 0.87 Est Glomerular Filtrat Rate mL/min > 60 Glucose Level 101 Calcium Level 8.8 Medications Medication Current Medications Morphine Sulfate (morphine) 2 mg Q4H PRN IV SEVERE PAIN LEVEL 7-10 Last administered on 12/22/18at 23:51; Admin Dose 2 MG; Start 10/22/18 at 01:30 Phenol (Cepastat Lozenge) 1 lozenge Q1H PRN MT sore throat Last administered on 10/31/18at 18:34; Admin Dose 1 LOZENGE; Start 10/27/18 at 21:30 Metolazone (Zaroxolyn) 2.5 mg BID@0530,1730 PO Last administered on 12/23/18at 18:09; Admin Dose 2.5 MG; Start 11/01/18 at 05:30 Enoxaparin Sodium (Lovenox) 40 mg DAILY SC Last administered on 11/23/18 09:02; Admin Dose 40 MG; Start 11/02/18 at 09:00; Status Hold Ibuprofen (Motrin) 400 mg Q6H PRN PO MILD PAIN(1-3) OR TEMP>38C Last administered on 12/09/18 02:07; Admin Dose 400 MG; Start 11/07/18 at 12:20 Potassium Chloride (Klor-Con 20) 20 meq BID PO Last administered on 12/23/18 20:45; Admin Dose 20 MEQ; Start 11/11/18 at 09:00 Escitalopram Oxalate (Lexapro) 10 mg DAILY PO Last administered on 12/23/18 09:19; Admin Dose 10 MG; Start 11/24/18 at 19:00 Anastrozole (Arimidex) 1 mg DAILY PO Last administered on 12/23/18 09:26; Admin Dose 1 MG; Start 11/25/18 at 10:30 Carvedilol (Coreg) 3.125 mg BID PO Last administered on 12/23/18 20:46; Admin Dose 3.125 MG; Start 11/25/18 at 10:30 Docusate Sodium (Colace) 100 mg BID PO Last administered on 12/23/18 20:44; Admin Dose 100 MG; Start 11/25/18 at 10:30 Loratadine (Claritin) 10 mg DAILY PO Last administered on 12/23/18 09:21; Admin Dose 10 MG; Start 11/25/18 at 10:30 Pantoprazole (Protonix Tab) 40 mg AC BREAKFAST PO Last administered on 12/23/18 04:59; Admin Dose 40 MG; Start 11/25/18 at 10:30 Polyethylene Glycol (Miralax) 17 gm DAILY PO Last administered on 12/23/18 09:23; Admin Dose 17 GM; Start 11/25/18 at 10:30 Spironolactone (Aldactone) 50 mg DAILY PO Last administered on 12/23/18 09:22; Admin Dose 50 MG; Start 11/25/18 at 10:30 Diclofenac Sodium (Voltaren 1% Gel) 2 gm QID TP Last administered on 12/23/18 20:47; Admin Dose 2 GM; Start 11/27/18 at 22:00 Oxycodone HCl (Oxycontin) 20 mg BID PO Last administered on 12/23/18 20:44; Admin Dose 20 MG; Start 12/01/18 at 09:00 Budesonide (Pulmicort (Neb)) 0.5 mg BID RESP THERAPY PRN HHN WHEEZING; Start 12/01/18 at 13:00 Zolpidem Tartrate (Ambien) 10 mg HS PRN PO INSOMNIA Last administered on 12/17/18 00:40; Admin Dose 5 MG; Start 12/02/18 at 20:00 Ergocalciferol (Drisdol) 50,000 unit Q7D PO Last administered on 12/17/18at 16:50; Admin Dose 50,000 UNIT; Start 12/03/18 at 16:00 Ampicillin Sodium/ Sulbactam Sodium 100 ml @ 100 mls/hr Q6 IVPB Last administered on 12/23/18at 18:09; Admin Dose 100 MLS/HR; Start 12/12/18 at 17:00 Bumetanide (Bumex) 0.5 mg BID@0800,1400 PO Last administered on 12/23/18at 14:43; Admin Dose 0.5 MG; Start 12/19/18 at 15:14 Miscellaneous Information 1 ea BID XX ; Start 12/20/18 at 18:00 Phenol (Cepastat Lozenge) 1 lozenge Q2H PRN MT SORE THROAT; Start 12/21/18 at 16:00 Fluconazole (Diflucan) 100 mg DAILY PO Last administered on 12/23/18at 09:21; Admin Dose 100 MG; Start 12/23/18 at 09:00; Stop 12/31/18 at 11:00 DES DUNAWAY MD Dec 23, 2018 23:32
[2018-12-24] MEDS: AMPICILLIN/SULB 3 GM/NS (PMX) 100 ML IVPB SCH ×2 (00:07→06:03)
[2018-12-24 02:53] VITALS: BP 113/66; PULSE 92; RESP 18
[2018-12-24] MEDS: PANTOPRAZOLE (EC) 40 MG TAB PO SCH (06:03)
[2018-12-24] MEDS: METOLAZONE 2.5 MG TAB PO SCH ×2 (06:05→17:17)
[2018-12-24] MEDS: BUMETANIDE 0.5 MG TAB PO SCH (08:00)
[2018-12-24 08:17] VITALS: BP 107/82; PULSE 91; RESP 18
--- NOTE | 2018-12-24 08:34 | PN ---
Date/Time of Note Date/Time of Note DATE: 12/24/18 TIME: 08:28 Assessment/Plan VTE Prophylaxis Risk score (from Ns)>0 risk: 8 SCD applied (from Ns): No SCD contraindicated: other Pharmacological prophylaxis: LMWH Lines/Catheters IV C[facility]ter Type [facility]from [facility] Central Line Central line still needed: Yes Urinary Cath still in place: No Reason Cath still needed: urinary retention Assessment/Plan Hospital Course Rrecurrent thoracentesis from left pleural cavity.Bronchitis got treated slowly. CHF improved but not totally gone. Continue current chemotherapy bronchodilator therapy correction of fluid his electrolytes and follow the algorithm for a total synthesis planning. About 800 cc of right pleural fluid to the creation improved breathing given more but patient is having frequent episodes of hypo-tension. Today the following the patient the last day before going to vacation doctor Deion is going to follow the patient in my absence. I discussed with Dr. Palomino the details of further management. Assessment/Plan 1. PRIMARY ADENOCARCINOMA of the left breast. MULTIPLE BONY METS, PULMONARY METS;LIVER METS CHEMO ON HOLD; PT HAS A VERY GOOD RESPONSE TO CHEMO AND AI 2. Severe pain in the interscapular and lumbar sacral area most probably metastatic lesion possible femoral fracture. pathologic fracture of T9 with 60% of loss of height. Neurosurgical f/u. 3. Obesity. 4. Weight loss 5. PMS. 6. Myopia. 7. Anemia chronic disease with a drop of her hematocrit to 27; Latest results 28. Will recheck tomorrow;Leukopenia.Thrombocytopenia; 8. Anxiety disorder. Claustrophobia. On Ativan to 1 mg every 8 as needed and Lexapro 10 mg daily. 9. Posttraumatic stress disorder. 10. Pain in the left forearm with a history of fracture of ulna and radius. 11. Tachycardia-resolved 12. Hypoxemia at night marginal improved after 2 L of nasal cannula oxygen. 13. Deconditioning 14. 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 MRI: 09/28/18:diffuse osseous metastatic disease with multiple pathologic compression fractures at least involving the T4, T5, T7, T9 and T11 levels. There is likely mild cortical breakthrough at several levels resulting in mild central canal narrowing. No gross evidence of cord compression is seen.. 15. Pain syndrome. Today the most painful zone is in the right hip area. 16. Hyponatremia-corrected. 17. Leucopenia-improved. 18. Neutropenia with occasional fever and chills. Last chemotherapy 5 days ago. 19. Hypoalbuminemia. 20.Right sided cp after catheter insertion and correction less discomfort. 21. Decreased edema both lower extremities with [id number] with Pleural and Pericardial effusion. 22. pain syndrome 23.bilateral pleural effusions ; s/p recurrent left and occasional right thoracentesis Reaccumulation of the pleural fluid. 24. Systolic over diastolic congestive heart failure with a right more than left lower extremity swelling with no DVT in latest venous Doppler. 25. Swelling of the left forearm-persist. Cellulitis of the left forearm with decreased edema anteriorly.-Today it is less edematous 26. Pathologic fracture of the right hip;s/p hemiarthroplasty of right hip . 27. Dizziness 28. Deconditioning 29. Memory impairment. 30. dry cough. 31. Decreased voice with wheezing. 32. Headaches 33. Hypokalemia- corrected 34. Status post (yesterday) thoracentesis from a left pleural cavity (800cc)with no immediate complications. 35. Status post right thoracentesis and 800 cc removal with no immediate complications. 36.Cholelythiasis 37.Pericardial effusion 38.Pain syndrome. 39.Bilateral mastoiditis, left more than the right. Continue Unasyn in-house, will change to Augmentin upon discharge. Dr Espinosa is following in ID consultation. 40.Acute on chronic pain, continue OxyContin twice daily and morphine as needed right lower extremity and left upper extremity lymphedema Result Diagram: 12/23/18 0456 12/23/18 0456 Results 24hrs I received a call yesterday about further management of the patient from the adult protective caseworker. Plan to discharge to halfway facility preferably nearby [facility] at the primary care physician I can follow for. Speaking her language is making a lot of things easier from that standpoint also I would like to continue to care. It become evident that the patient's insurance status was changed from the free [employer] to HMO. According to the actual policy I cannot follow them in the hospital or in the halfway facility because of that. I still will continue to follow the patient and he will case management will organize another physicians who is affiliated with her current insurance to follow both inside the hospital on after discharge outside of the hospital. I will provide my free services as Dr. follow to 4 months along with being a community program assistant if any way I can support in her difficult days to make life easier. Will follow as needed. This is considered as of service note. Discussed with Dr. Palomino. The patient will be able to regain her free medical status I can follow her. Subjective 24 Hr Interval Summary Free Text/Dictation Back pain. Difficult to sit up. We need to get up without help with unstable gait. The patient is making effort not to use the ability to walk using the walker but it is apparent that she is risking. Recommended not to walk without support for at least one person. Constitutional: poor po; No no complaints, No improved, No chills, No diaphoresis, No disoriented, No febrile, No requiring IVF, No requiring O2, No other Eyes: No no complaints, No pain, No discharge, No redness, No visual change, No other ENT: congestion, discharge; No no complaints, No bleeding, No pain, No dysphagia, No sore throat, No other Respiratory: cough; No no complaints, No pain, No pleuritic pain, No shortness of breath, No sputum, No wheezing, No other Cardiovascular: edema; No no complaints, No chest pain, No lightheadedness, No orthopenea, No palpitations, No paroxysmal nocturnal dyspnea, No other Gastrointestinal: constipation, flatus, nausea; No no complaints, No pain, No blood, No decreased appetite, No diarrhea, No passing stool, No vomiting, No other Genitourinary: dysuria; No no complaints, No bleeding, No discharge, No flank pain, No hematuria, No other Musculoskeletal: back pain, bone/joint pain; No no complaints, No neck pain, No restricted range of motion, No swelling, No other Skin: No no complaints, No bruising, No erythema, No laceration, No pruritis, No rash, No skin lesions, No other Neurologic: dizziness, headache; No no complaints, No confusion, No focal-weakness, No syncope, No seizure, No other Endocrine: No no complaints, No polyuria, No polydypsia, No dry skin, No temp intolerance, No other Lymphatic: No no complaints, No adenopathy, No tender nodes, No lymphadema, No other Psychological: anxiety; No no complaints, No nl mood/affect, No confusion, No depression, No suicidal, No other Exam/Review of Systems Exam Vitals Vital Signs Date Temp Pulse Resp B/P (MAP) Pulse Ox O2 O2 Flow FiO2 Time Delivery Rate 12/24/18 98.5 91 18 107/82 97 Nasal 08:17 (90) Cannula 12/23/18 2.0 09:01 Intake and Output 12/23/18 12/23/18 12/24/18 1515:00 23:00 07:00 IntakeIntake Total 1000 ml 450 ml BalanceBalance 1000 ml 450 ml Constitutional: alert, oriented, well developed, distress, frail Psych: anxiety Head: normocephalic, atraumatic; No lacerations, No hematomas, No other Eyes: EOMI, nl lids; No nl conjunctiva, No nl sclera, No PERRL, No icteric, No fundi, disc, No other ENMT: intubated; No nl external ears & nose, No nl lips & teeth, No nl nasal mucosa & septum, No mucosa pink and moist, No tympanic membranes, No other Neck: jvd; No supple, No non-tender, No bruits, No masses, No thyromegaly, No nuchal rigidity, No other Respiratory: normal air movement, congested cough (Cough mainly dry.), diminished breath sounds; No clear to auscultation, No crackles/rales, No intercostal retraction, No labored breathing, No respirations, No tactile fremitus, No wheezing, No other Cardiovascular: edema, systolic murmur; No regular rate and rhythm, No nl pulses, No bruits, No diastolic murmur, No gallop, No irregular rhythm, No jugular venous distention (JVD), No murmurs/extra sounds, No rub, No S3, No S4, No other Gastrointestinal: bowel sounds; No soft, No nl liver, spleen, No non-tender, No ascites, No distended, No firm, No hepatomegaly, No mass, No rebound or guarding, No splenomegaly, No surgical scars, No tender, No other Musculoskeletal: joint tenderness, muscle tone, muscle weakness; No nl extremities to inspection, No nl gait and stance, No range of motion, No spine non-tender, No swelling, No other Extremities: edema; No normal pulses, No calf tenderness, No cyanosis, No clubbing, No pitting pedal edema, No palpable cord, No tenderness, No other Neurological: nl mental status, nl speech, numbness; No BREAKER OPERATOR 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, No nl strength, No confused, No DTR's symmetric, No focal weakness, No lethargic, No reflexes, No unresponsive, No other Skin: No nl turgor, No rash or lesions, No diaphoresis, No ecchymosis, No laceration, No puncture, No other Lymph: No nl lymph nodes, No enlarged, No nontender, No other Medications Medication Current Medications Morphine Sulfate (morphine) 2 mg Q4H PRN IV SEVERE PAIN LEVEL 7-10 Last administered on 12/22/18 23:51; Admin Dose 2 MG; Start 10/22/18 at 01:30 Phenol (Cepastat Lozenge) 1 lozenge Q1H PRN MT sore throat Last administered on 10/31/18 18:34; Admin Dose 1 LOZENGE; Start 10/27/18 at 21:30 Metolazone (Zaroxolyn) 2.5 mg BID@0530,1730 PO Last administered on 12/24/18 06:05; Admin Dose 2.5 MG; Start 11/01/18 at 05:30 Enoxaparin Sodium (Lovenox) 40 mg DAILY SC Last administered on 11/23/18 09:02; Admin Dose 40 MG; Start 11/02/18 at 09:00; Status Hold Ibuprofen (Motrin) 400 mg Q6H PRN PO MILD PAIN(1-3) OR TEMP>38C Last administered on 12/09/18 02:07; Admin Dose 400 MG; Start 11/07/18 at 12:20 Potassium Chloride (Klor-Con 20) 20 meq BID PO Last administered on 12/23/18 20:45; Admin Dose 20 MEQ; Start 11/11/18 at 09:00 Escitalopram Oxalate (Lexapro) 10 mg DAILY PO Last administered on 12/23/18 09:19; Admin Dose 10 MG; Start 11/24/18 at 19:00 Anastrozole (Arimidex) 1 mg DAILY PO Last administered on 12/23/18 09:26; Admin Dose 1 MG; Start 11/25/18 at 10:30 Carvedilol (Coreg) 3.125 mg BID PO Last administered on 12/23/18 20:46; Admin Dose 3.125 MG; Start 11/25/18 at 10:30 Docusate Sodium (Colace) 100 mg BID PO Last administered on 12/23/18 20:44; Admin Dose 100 MG; Start 11/25/18 at 10:30 Loratadine (Claritin) 10 mg DAILY PO Last administered on 12/23/18 09:21; Admin Dose 10 MG; Start 11/25/18 at 10:30 Pantoprazole (Protonix Tab) 40 mg AC BREAKFAST PO Last administered on 12/24/18 06:03; Admin Dose 40 MG; Start 11/25/18 at 10:30 Polyethylene Glycol (Miralax) 17 gm DAILY PO Last administered on 12/23/18 09:23; Admin Dose 17 GM; Start 11/25/18 at 10:30 Spironolactone (Aldactone) 50 mg DAILY PO Last administered on 12/23/18 09:22; Admin Dose 50 MG; Start 11/25/18 at 10:30 Diclofenac Sodium (Voltaren 1% Gel) 2 gm QID TP Last administered on 12/23/18 20:47; Admin Dose 2 GM; Start 11/27/18 at 22:00 Oxycodone HCl (Oxycontin) 20 mg BID PO Last administered on 12/23/18 20:44; Admin Dose 20 MG; Start 12/01/18 at 09:00 Budesonide (Pulmicort (Neb)) 0.5 mg BID RESP THERAPY PRN HHN WHEEZING; Start 12/01/18 at 13:00 Zolpidem Tartrate (Ambien) 10 mg HS PRN PO INSOMNIA Last administered on 12/17/18 00:40; Admin Dose 5 MG; Start 12/02/18 at 20:00 Ergocalciferol (Drisdol) 50,000 unit Q7D PO Last administered on 12/17/18 16:50; Admin Dose 50,000 UNIT; Start 12/03/18 at 16:00 Ampicillin Sodium/ Sulbactam Sodium 100 ml @ 100 mls/hr Q6 IVPB Last administered on 12/24/18 06:03; Admin Dose 100 MLS/HR; Start 12/12/18 at 17:00 Bumetanide (Bumex) 0.5 mg BID@0800,1400 PO Last administered on 12/23/18at 14:43; Admin Dose 0.5 MG; Start 12/19/18 at 15:14; Status Hold Miscellaneous Information 1 ea BID XX ; Start 12/20/18 at 18:00 Phenol (Cepastat Lozenge) 1 lozenge Q2H PRN MT SORE THROAT; Start 12/21/18 at 16:00 Fluconazole (Diflucan) 100 mg DAILY PO Last administered on 12/23/18at 09:21; Admin Dose 100 MG; Start 12/23/18 at 09:00; Stop 12/31/18 at 11:00 Acetazolamide (Diamox) 500 mg ONCE ONCE IV ; Start 12/24/18 at 09:30; Stop 12/24/18 at 09:31 RUSS JEROME MD Dec 24, 2018 08:34
--- NOTE | 2018-12-24 08:37 | PN ---
DATE: 12/24/2018 SUBJECTIVE: I was asked to see the patient again due to recurrent and persistent edema. The patient has been on a diuretic regimen including Aldactone, Metolazone and Bumex. The patient herself denie s any hemoptysis, hematemesis or hematochezia. OBJECTIVE: VITAL SIGNS: Blood pressure is 113/66, respiration 18, pulse 92, temperature 98.4. HEENT: Head is normocephalic. NECK: Supple. HEART: Regular rate. LUNGS: Show diminished breath sounds at the base. ABDOMEN: Soft, nontender to palpation without rebound or guarding. EXTREMITIES: Negative for clubbing, cyanosis. Positive edema, left upper extremity. DERMATOLOGIC: No rashes. MUSCULOSKELETAL: No joint effusion. NEUROLOGIC: No change in exam. MEDICATIONS: The patient's medications have been reviewed. LABORATORY DATA: The laboratory data has been reviewed. IMAGING STUDIES: The imaging studies have been reviewed. ASSESSMENT AND PLAN: 1. Volume overload. Etiology is secondary to diastolic heart failure, CHF, possible component of ly mphedema. The patient remains on diuretic therapy. Would consider starting patient on Diamox, holdi ng Bumex in the setting of alkalosis. Will monitor renal function and electrolytes closely. 2. Hyperkalemia, improved. Continue current potassium regimen. 3. Metabolic alkalemia. Will give the patient a course of Diamox and hold Bumex. 4. Nonoliguric acute injury. Etiology is secondary to hemodynamics. Renal function is improved. C ontinue to monitor. 5. Mineral bone disorder. Monitor calcium and phosphorus levels. 6. Hip fracture, status post arthroplasty. 7. Breast cancer with metastasis. Continue to monitor. Follow up with oncology. 8. Left radial ulnar fracture. Continue to monitor. 9. Chronic pain syndrome. 10. Status post bronchitis. Dictated By: ANDRÉS TATUM DO NR/NTS Conf#: [id number] DID#: [id number] CC: RUSS JEROME MD; ALMA CORDOVA MD;*EndCC*
[2018-12-24] MEDS: (Nursing Note) XX SCH ×2 (09:00→21:00)
[2018-12-24] MEDS ORDERED: ACETAZOLAMIDE 500 MG INJ IV ONE (09:30)
[2018-12-24] MEDS: POTASSIUM CHLORIDE (SR) 20 MEQ TAB PO SCH ×2 (09:34→21:40)
[2018-12-24] MEDS: ESCITALOPRAM 10 MG TAB PO SCH (09:34)
[2018-12-24] MEDS: FLUCONAZOLE 100 MG TAB PO SCH (09:34)
[2018-12-24] MEDS: LORATADINE 10 MG TAB PO SCH (09:34)
[2018-12-24] MEDS: SPIRONOLACTONE 50 MG TAB PO SCH (09:34)
[2018-12-24] MEDS: POLYETHYLENE GLYCOL 17 GM PACKET PO SCH (09:35)
[2018-12-24] MEDS: DOCUSATE SODIUM 100 MG CAP PO SCH ×2 (09:35→21:40)
[2018-12-24] MEDS: ANASTROZOLE 1 MG TAB PO SCH (09:36)
[2018-12-24] MEDS: oxyCODONE (CR) 20 MG TAB [oxyCONTIN] PO SCH ×2 (09:38→21:41)
[2018-12-24] MEDS: DICLOFENAC SODIUM 1% GEL 100 GM TUBE TP SCH ×4 (09:38→21:43)
--- NOTE | 2018-12-24 12:03 | CONS ---
Consult Date/Type/Reason Admit Date/Time October 21, 2018 at 17:39 Initial Consult Date 10/21/18 Requesting Provider: TOMMIE JAMES Date/Time of Note DATE: 12/24/18 TIME: 12:01 Subjective NO acute events - recurrens pleural effusion - pulmonary follows - chronic SOB, no CP now - fatigued. ROS: No fever, no chills, no nausea, no vomiting, no diarrhea/constipation No recent weight changes No chest pain, no PND, no orthopnea - increased SOB No dizziness, blurred vision No thirst, no heat or cold intolerance Objective Vitals Vital Signs Date Temp Pulse Resp B/P (MAP) Pulse Ox O2 O2 Flow FiO2 Time Delivery Rate 12/24/18 98.5 91 18 107/82 97 Nasal 08:17 (90) Cannula 12/23/18 2.0 09:01 Intake and Output 12/23/18 12/23/18 12/24/18 1515:00 23:00 07:00 IntakeIntake Total 1000 ml 450 ml BalanceBalance 1000 ml 450 ml Exam General: WN/WD/NAD, AOx 3 HEENT: Unicetric/atraumatic/EOMI ( follows commands) NECK: JVD elevated, no thyromegaly Lymph: no lymphadenopathy HEART: regular with no S3, II/ systolic murmur at apex, PMI L LUNGS: Coarse sounds ABD: soft, NT, ND, +BS : Intact Neuro: non focal SKIN: chronic changes EXT: trace edema Results/Medications Result Diagram: 12/23/18 0456 12/23/18 045 Home Meds Reported Medications Tuberculin,Purif.prot.deriv. (Tubersol) 5 Tub Unit/0.1 Ml Vial, 0.1 ML ID, VIAL INJECT QHS EVERY 10 DAYS FOR PPD SCREENING FOR 11 DAYS READ IN 48 HOURS,IF NEGATIVE 2STEP IN 7 DAYS FROM FIRST DOSE. 10/21/18 Acetaminophen* (Tylenol*) 325 Mg Tablet, 650 MG PO Q4H PRN for PAIN LEVEL 1- 10/10, TAB 10/21/18 Spironolactone* (Aldactone*) 50 Mg Tablet, 50 MG PO DAILY, #30 TAB HOLD FOR SBP<110 10/21/18 Simethicone* (Mylicon*) 80 Mg Tab, 80 MG PO Q8H, TAB 10/21/18 Olopatadine* (Patanol* Ophth) 0.1% - 5 Ml Drops, 1 DROP BOTH EYES BID, EA 10/21/18 Hydrocodone/Acetaminophen (Apex 10-325 Tablet) 1 Each Tablet, 1 EACH PO Q4H, TAB 10/21/18 Loratadine* (Loratadine*) 10 Mg Tablet, 10 MG PO DAILY for FOR 3 MONTHS, #30 TAB 10/21/18 Lidocaine (Lidocaine) 1 Each Adh..patch, 1 EACH TP DAILY 10/21/18 Ipratropium-Albuterol (Ipratropium-Albuterol) 0.5-3 Mg/3 Ml Ampul.neb, 3 ML INHALATION Q8H, #30 VIAL 10/21/18 Furosemide* (Furosemide*) 40 Mg Tablet, 40 MG PO BID, TAB HOLD FOR SBP<110 10/21/18 Na Phos,M-B/Na Phos,Di-Ba (Fleet Enema Extra) Unknown Strength Enema, 1 APPLIC RC NEEDED for CONSTIPATION, ENEMA 10/21/18 Bisacodyl (Dulcolax) 10 Mg Supp.rect, 10 MG RC NEEDED, SUPP.RECT 10/21/18 Potassium Chloride* (Potassium Chloride*) 20 Meq Tablet.er, 20 MEQ PO DAILY, TAB.SA 09/09/18 Pantoprazole* (Pantoprazole*) 40 Mg Tablet.dr, 40 MG PO AC BREAKFAST, TAB 08/22/18 Oxycodone Hcl* (Oxycontin*) 20 Mg Tab.er.12h, 20 MG PO Q12, TAB 08/22/18 Amlodipine Besylate* (Norvasc*) 5 Mg Tablet, 5 MG PO DAILY, TAB HOLD FOR SBP <110. 08/22/18 Polyethylene Glycol* (Miralax*) 17 Gm Powd.pack, 17 GM PO DAILY, #60 PACKET 08/22/18 Magnesium Hydroxide* (Milk Of Magnesia*) 400 Mg/5 Ml Oral.susp, 30 ML PO DAILY, ML 08/22/18 Escitalopram Oxalate* (Lexapro*) 10 Mg Tablet, 10 MG PO DAILY, #30 TAB 08/22/18 Docusate Sodium* (Colace*) 100 Mg Capsule, 100 MG PO BID, #60 CAP 08/22/18 Carvedilol* (Carvedilol*) 3.125 Mg Tablet, 3.125 MG PO BID, #60 TAB HOLD FOR SBP <110 OR ID <60. GIVE WITH FOOD. 08/22/18 Benazepril Hcl* (Benazepril Hcl*) 5 Mg Tablet, 5 MG PO DAILY, #60 TAB HOLD FOR SBP <110. 08/22/18 Anastrozole* (Arimidex*) 1 Mg Tablet, 1 MG PO DAILY, #30 TAB 08/22/18 Medications Current Medications Morphine Sulfate (morphine) 2 mg Q4H PRN IV SEVERE PAIN LEVEL 7-10 Last administered on 12/22/18 23:51; Admin Dose 2 MG; Start 10/22/18 at 01:30 Phenol (Cepastat Lozenge) 1 lozenge Q1H PRN MT sore throat Last administered on 10/31/18 18:34; Admin Dose 1 LOZENGE; Start 10/27/18 at 21:30 Metolazone (Zaroxolyn) 2.5 mg BID@0530,1730 PO Last administered on 12/24/18 06:05; Admin Dose 2.5 MG; Start 11/01/18 at 05:30 Enoxaparin Sodium (Lovenox) 40 mg DAILY SC Last administered on 11/23/18 09:02; Admin Dose 40 MG; Start 11/02/18 at 09:00; Status Hold Ibuprofen (Motrin) 400 mg Q6H PRN PO MILD PAIN(1-3) OR TEMP>38C Last administered on 12/09/18 02:07; Admin Dose 400 MG; Start 11/07/18 at 12:20 Potassium Chloride (Klor-Con 20) 20 meq BID PO Last administered on 12/24/18 09:34; Admin Dose 20 MEQ; Start 11/11/18 at 09:00 Escitalopram Oxalate (Lexapro) 10 mg DAILY PO Last administered on 12/24/18 09:34; Admin Dose 10 MG; Start 11/24/18 at 19:00 Anastrozole (Arimidex) 1 mg DAILY PO Last administered on 12/24/18 09:36; Admin Dose 1 MG; Start 11/25/18 at 10:30 Carvedilol (Coreg) 3.125 mg BID PO Last administered on 12/24/18 09:34; Admin Dose 3.125 MG; Start 11/25/18 at 10:30 Docusate Sodium (Colace) 100 mg BID PO Last administered on 12/24/18 09:35; Admin Dose 100 MG; Start 11/25/18 at 10:30 Loratadine (Claritin) 10 mg DAILY PO Last administered on 12/24/18 09:34; Admin Dose 10 MG; Start 11/25/18 at 10:30 Pantoprazole (Protonix Tab) 40 mg AC BREAKFAST PO Last administered on 06:03; Admin Dose 40 MG; Start 11/25/18 at 10:30 Polyethylene Glycol (Miralax) 17 gm DAILY PO Last administered on 12/24/18 09:35; Admin Dose 17 GM; Start 11/25/18 at 10:30 Spironolactone (Aldactone) 50 mg DAILY PO Last administered on 12/24/18 09:34; Admin Dose 50 MG; Start 11/25/18 at 10:30 Diclofenac Sodium (Voltaren 1% Gel) 2 gm QID TP Last administered on 12/24/18 09:38; Admin Dose 2 GM; Start 11/27/18 at 22:00 Oxycodone HCl (Oxycontin) 20 mg BID PO Last administered on 12/24/18 09:38; Admin Dose 20 MG; Start 12/01/18 at 09:00 Budesonide (Pulmicort (Neb)) 0.5 mg BID RESP THERAPY PRN HHN WHEEZING; Start 12/01/18 at 13:00 Zolpidem Tartrate (Ambien) 10 mg HS PRN PO INSOMNIA Last administered on 12/17/18 00:40; Admin Dose 5 MG; Start 12/02/18 at 20:00 Ergocalciferol (Drisdol) 50,000 unit Q7D PO Last administered on 12/17/18 16:50; Admin Dose 50,000 UNIT; Start 12/03/18 at 16:00 Bumetanide (Bumex) 0.5 mg BID@0800,1400 PO Last administered on 12/23/18 14:43; Admin Dose 0.5 MG; Start 12/19/18 at 15:14; Status Hold Miscellaneous Information 1 ea BID XX ; Start 12/20/18 at 18:00 Phenol (Cepastat Lozenge) 1 lozenge Q2H PRN MT SORE THROAT; Start 12/21/18 at 16:00 Fluconazole (Diflucan) 100 mg DAILY PO Last administered on 12/24/18at 09:34; Admin Dose 100 MG; Start 12/23/18 at 09:00; Stop 12/31/18 at 11:00 Assessment/Plan Hospital Course (Demo Recall) 1. Congestive heart failure exacerbation would be diastolic, acute on chronic by most recent echo.-now s/p echo this admit with EF 60/small effusion - better now, responding to diuresis. CHF better, but suspect effusion is re-accumulated - stable. Bumex increased - con;t to follow. Stable with current Rx. Stable fluid output now. 2. Abnormal electrocardiogram with low voltage, rule out pericardial effusion - stable, no signs of tamponade. Treated. Off tele now. NO intervention planned. Stable. 3. Hypertension-currently borderline hypotension - treated with meds. BP stable overall. Tolerated Rx well. 4. Metastatic breast carcinoma- responded to chemo per Dr. Fernández - still poor prognosis. Traeted - hair beginning to grow back. Last effusion drainage a week ago - radiology to follow again. DR. Fernández Rx - stable. 5. History of pathologic fractures of the leg, status post open reduction and internal fixation - pain controlled. 6. Anemia - Rx per hem-onc team. Rx as needed. 7. Increased BNP consistent with patient's congestive heart failure. 8. Pericardial effusion-small by echo - on antin-Bx 8. SOB - now with increased Sx - now with sore throat - consider ENT eval. On anti-Bx now. Might need pleurodex catheter. EMILY NELSON MD Dec 24, 2018 12:03
--- NOTE | 2018-12-24 13:52 | CONS ---
Assessment/Plan Assessment/Plan Hospital Course (Demo Recall) Alert, complaining of sore throat, no fevers overnight Antimicrobials: Unasyn 12/12 Indwelling: R chest Port-A-Cath 05/29/18 Physical examination: Obese well-developed middle-aged [place]ic-speaking woman who is alert in no distress. Head atraumatic normocephalic sclera nonicteric vehicle mucosa pink. Neck is supple chest rise symmetrical breath sounds diminished bases. Heart: S1-S2. Abdomen soft bowel sounds present extremities without cyanosis, left upper extremity with edema Assessment: 1. Bilateral mastoiditis 2. Metastatic breast cancer 3. Status post R hip arthroplasty due to lytic fracture 4. Status post recent fall with left wrist fracture that is being treated conservatively Plan: Stable completed antibiotics, add Cepacol Consultation Date/Type/Reason Admit Date/Time October 21, 2018 at 17:39 Initial Consult Date 11/21/18 Type of Consult id Requesting Provider: TOMMIE JAMES Date/Time of Note DATE: 12/24/18 TIME: 13:51 Exam/Review of Systems Exam Vitals Vital Signs Date Temp Pulse Resp B/P (MAP) Pulse Ox O2 O2 Flow FiO2 Time Delivery Rate 12/24/18 98.5 91 18 107/82 97 Nasal 08:17 (90) Cannula 12/23/18 2.0 09:01 Intake and Output 12/23/18 12/23/18 12/24/18 1515:00 23:00 07:00 IntakeIntake Total 1000 ml 450 ml BalanceBalance 1000 ml 450 ml Results Result Diagram: 12/23/18 0456 12/23/18 0456 Medications Medication Current Medications Morphine Sulfate (morphine) 2 mg Q4H PRN IV SEVERE PAIN LEVEL 7-10 Last administered on 12/22/18at 23:51; Admin Dose 2 MG; Start 10/22/18 at 01:30 Phenol (Cepastat Lozenge) 1 lozenge Q1H PRN MT sore throat Last administered on 10/31/18at 18:34; Admin Dose 1 LOZENGE; Start 10/27/18 at 21:30 Metolazone (Zaroxolyn) 2.5 mg BID@0530,1730 PO Last administered on 12/24/18at 06:05; Admin Dose 2.5 MG; Start 11/01/18 at 05:30 Enoxaparin Sodium (Lovenox) 40 mg DAILY SC Last administered on 11/23/18 09:02; Admin Dose 40 MG; Start 11/02/18 at 09:00; Status Hold Ibuprofen (Motrin) 400 mg Q6H PRN PO MILD PAIN(1-3) OR TEMP>38C Last administered on 12/09/18 02:07; Admin Dose 400 MG; Start 11/07/18 at 12:20 Potassium Chloride (Klor-Con 20) 20 meq BID PO Last administered on 12/24/18 09:34; Admin Dose 20 MEQ; Start 11/11/18 at 09:00 Escitalopram Oxalate (Lexapro) 10 mg DAILY PO Last administered on 12/24/18 09:34; Admin Dose 10 MG; Start 11/24/18 at 19:00 Anastrozole (Arimidex) 1 mg DAILY PO Last administered on 12/24/18 09:36; Admin Dose 1 MG; Start 11/25/18 at 10:30 Carvedilol (Coreg) 3.125 mg BID PO Last administered on 12/24/18 09:34; Admin Dose 3.125 MG; Start 11/25/18 at 10:30 Docusate Sodium (Colace) 100 mg BID PO Last administered on 12/24/18 09:35; Admin Dose 100 MG; Start 11/25/18 at 10:30 Loratadine (Claritin) 10 mg DAILY PO Last administered on 12/24/18 09:34; Admin Dose 10 MG; Start 11/25/18 at 10:30 Pantoprazole (Protonix Tab) 40 mg AC BREAKFAST PO Last administered on 12/24/18 06:03; Admin Dose 40 MG; Start 11/25/18 at 10:30 Polyethylene Glycol (Miralax) 17 gm DAILY PO Last administered on 12/24/18 09:35; Admin Dose 17 GM; Start 11/25/18 at 10:30 Spironolactone (Aldactone) 50 mg DAILY PO Last administered on 12/24/18 09:34; Admin Dose 50 MG; Start 11/25/18 at 10:30 Diclofenac Sodium (Voltaren 1% Gel) 2 gm QID TP Last administered on 12/24/18 09:38; Admin Dose 2 GM; Start 11/27/18 at 22:00 Oxycodone HCl (Oxycontin) 20 mg BID PO Last administered on 12/24/18at 09:38; Admin Dose 20 MG; Start 12/01/18 at 09:00 Budesonide (Pulmicort (Neb)) 0.5 mg BID RESP THERAPY PRN HHN WHEEZING; Start 12/01/18 at 13:00 Zolpidem Tartrate (Ambien) 10 mg HS PRN PO INSOMNIA Last administered on 12/17/18at 00:40; Admin Dose 5 MG; Start 12/02/18 at 20:00 Ergocalciferol (Drisdol) 50,000 unit Q7D PO Last administered on 12/17/18 16:50; Admin Dose 50,000 UNIT; Start 12/03/18 at 16:00 Bumetanide (Bumex) 0.5 mg BID@0800,1400 PO Last administered on 12/23/18at 14:43; Admin Dose 0.5 MG; Start 12/19/18 at 15:14; Status Hold Miscellaneous Information 1 ea BID XX ; Start 12/20/18 at 18:00 Phenol (Cepastat Lozenge) 1 lozenge Q2H PRN MT SORE THROAT; Start 12/21/18 at 16:00 Fluconazole (Diflucan) 100 mg DAILY PO Last administered on 12/24/18at 09:34; Admin Dose 100 MG; Start 12/23/18 at 09:00; Stop 12/31/18 at 11:00 YUAN ROMERO NP Dec 24, 2018 13:52
[2018-12-24] MEDS: CEPASTAT LOZENGE MT SCH ×10 (14:37→23:00)
[2018-12-24 15:42] VITALS: BP 117/75; PULSE 88; RESP 18
[2018-12-24] MEDS: ERGOCALCIFEROL 50,000 UNIT CAP PO SCH (17:13)
[2018-12-24 20:57] VITALS: BP 100/74; PULSE 84; RESP 19
--- NOTE | 2018-12-24 22:35 | CONS ---
Assessment/Plan Assessment/Plan Hospital Course (Demo Recall) METASTATIC BREAST CANCER WITH PRIMARY ADENOCARCINOMA IN the left breast. MULTIPLE BONY METS, PULMONARY METS, LIVER METS CHEMO ON HOLD PT HAS A VERY GOOD RESPONSE TO CHEMO AND AI CONT AI FOR NOW CT ABD FOR RESTAGING 08.27.18, 12.04.18 - noted , stable POST aredia Leukopenia- post chemo, FLUCTUATING post NEUPOGEN monitor closely post Neutropenia with occasional fever and chills. - resolved Anemia chronic disease SOB PLEURAL EFFUSIONS, NEG CYTOLOGY POST RT SIDED THORACENTESIS PERFORMED BY DR CORTES. 700ML FLUID EXTRACTED . Fluid overload diuretic cardiology F-UP Severe pain in the interscapular and lumbar sacral area most probably metastatic lesion possible femoral fracture. pathologic fracture of T9 with 60% of loss of height. Bony pain with multiple bony mets post XRT d/w dr Ocamop HYPOKALEMIA- REPLACED Obesity. Weight loss 60 pounds during the last 2 years COUGH, Upper respiratory infection pharyngitis with dry cough. POST ATB PMS. Myopia. Anxiety disorder. Claustrophobia. Posttraumatic stress disorder. Pain in the left forearm with a history of fracture of ulna and radius. Tachycardia Hypoxemia at night marginal improved after 2 L of nasal cannula oxygen. Deconditioning Pain syndrome. Today the most painful zone is in the right hip area. X-ray did not show any fractures. Hyponatremia- resolved Hypoalbuminemia Right sided cp after catheter insertion and correction less discomfort. Decreased edema both lower extremities with hypotension-improving Swelling of the left forearm-persist. Consultation Date/Type/Reason Admit Date/Time October 21, 2018 at 17:39 Initial Consult Date 10/21/18 Type of Consult [facility] Requesting Provider: TOMMIE JAMES Date/Time of Note DATE: 12/24/18 TIME: 22:35 Exam/Review of Systems Exam Vitals Vital Signs Date Temp Pulse Resp B/P (MAP) Pulse Ox O2 O2 Flow FiO2 Time Delivery Rate 12/24/18 98.1 84 19 100/74 95 20:57 (83) 12/24/18 Room Air 15:42 12/23/18 2.0 09:01 Intake and Output 12/23/18 12/23/18 12/24/18 1515:00 23:00 07:00 IntakeIntake Total 1000 ml 550 ml BalanceBalance 1000 ml 550 ml Results Result Diagram: 12/23/186 12/23/186 Medications Medication Current Medications Morphine Sulfate (morphine) 2 mg Q4H PRN IV SEVERE PAIN LEVEL 7-10 Last administered on 12/22/18 23:51; Admin Dose 2 MG; Start 10/22/18 at 01:30 Metolazone (Zaroxolyn) 2.5 mg BID@0530,1730 PO Last administered on 12/24/18 17:17; Admin Dose 2.5 MG; Start 11/01/18 at 05:30 Enoxaparin Sodium (Lovenox) 40 mg DAILY SC Last administered on 11/23/18 09:02; Admin Dose 40 MG; Start 11/02/18 at 09:00; Status Hold Ibuprofen (Motrin) 400 mg Q6H PRN PO MILD PAIN(1-3) OR TEMP>38C Last administered on 12/09/18 02:07; Admin Dose 400 MG; Start 11/07/18 at 12:20 Potassium Chloride (Klor-Con 20) 20 meq BID PO Last administered on 12/24/18 21:40; Admin Dose 20 MEQ; Start 11/11/18 at 09:00 Escitalopram Oxalate (Lexapro) 10 mg DAILY PO Last administered on 12/24/18 09:34; Admin Dose 10 MG; Start 11/24/18 at 19:00 Anastrozole (Arimidex) 1 mg DAILY PO Last administered on 12/24/18 09:36; Admin Dose 1 MG; Start 11/25/18 at 10:30 Carvedilol (Coreg) 3.125 mg BID PO Last administered on 12/24/18 09:34; Admin Dose 3.125 MG; Start 11/25/18 at 10:30 Docusate Sodium (Colace) 100 mg BID PO Last administered on 12/24/18 21:40; Admin Dose 100 MG; Start 11/25/18 at 10:30 Loratadine (Claritin) 10 mg DAILY PO Last administered on 12/24/18 09:34; Admin Dose 10 MG; Start 11/25/18 at 10:30 Pantoprazole (Protonix Tab) 40 mg AC BREAKFAST PO Last administered on 12/24/18 06:03; Admin Dose 40 MG; Start 11/25/18 at 10:30 Polyethylene Glycol (Miralax) 17 gm DAILY PO Last administered on 12/24/18 09:35; Admin Dose 17 GM; Start 11/25/18 at 10:30 Spironolactone (Aldactone) 50 mg DAILY PO Last administered on 12/24/18 09:34; Admin Dose 50 MG; Start 11/25/18 at 10:30 Diclofenac Sodium (Voltaren 1% Gel) 2 gm QID TP Last administered on 12/24/18 21:43; Admin Dose 2 GM; Start 11/27/18 at 22:00 Oxycodone HCl (Oxycontin) 20 mg BID PO Last administered on 12/24/18 21:41; Admin Dose 20 MG; Start 12/01/18 at 09:00 Budesonide (Pulmicort (Neb)) 0.5 mg BID RESP THERAPY PRN HHN WHEEZING; Start 12/01/18 at 13:00 Zolpidem Tartrate (Ambien) 10 mg HS PRN PO INSOMNIA Last administered on 12/17/18 00:40; Admin Dose 5 MG; Start 12/02/18 at 20:00 Ergocalciferol (Drisdol) 50,000 unit Q7D PO Last administered on 12/24/18 17:13; Admin Dose 50,000 UNIT; Start 12/03/18 at 16:00 Bumetanide (Bumex) 0.5 mg BID@0800,1400 PO Last administered on 12/23/18 14:43; Admin Dose 0.5 MG; Start 12/19/18 at 15:14; Status Hold Miscellaneous Information 1 ea BID XX ; Start 12/20/18 at 18:00 Fluconazole (Diflucan) 100 mg DAILY PO Last administered on 12/24/18 09:34; Admin Dose 100 MG; Start 12/23/18 at 09:00; Stop 12/31/18 at 11:00 Phenol (Cepastat Lozenge) 1 lozenge Q1H MT Last administered on 12/24/18 21:39; Admin Dose 1 LOZENGE; Start 12/24/18 at 14:00 DES DUNAWAY MD Dec 24, 2018 22:35
[2018-12-25] MEDS ORDERED: CEPASTAT LOZENGE MT PRN
[2018-12-25 02:54] VITALS: BP 118/82; PULSE 81; RESP 18
[2018-12-25] MEDS: PANTOPRAZOLE (EC) 40 MG TAB PO SCH (05:55)
[2018-12-25] MEDS: METOLAZONE 2.5 MG TAB PO SCH ×2 (05:56→18:45)
--- NOTE | 2018-12-25 07:50 | PN ---
DATE: 12/25/2018 SUBJECTIVE: The patient is stable, no events overnight. Patient continues to have swelling in left upper extremity. No other events noted. OBJECTIVE: VITAL SIGNS: Blood pressure is 119/82, respiration 18, pulse 81, temperature 98.3. HEENT: Head is normocephalic. NECK: Supple. HEART: Regular rate. LUNGS: Show diminished breath sounds at the base. ABDOMEN: Soft, nontender to palpation. No rebound or guarding. EXTREMITIES: Negative for clubbing, cyanosis, or edema lower extremity. Left upper extremity positi ve edema. No significant change. NEUROLOGIC: No change in exam . ASSESSMENT AND PLAN: 1. Volume overload. Etiology secondary to diastolic heart failure component of lymphedema. The pa tient is near euvolemic status. The patient's diuretics were adjusted based on Diamox, holding Bumex in the setting of alkalosis. Continue to monitor renal function and electrolytes closely. 2. Hypokalemia, improved. Continue to monitor and replete. 3. Metabolic alkalemia, improving. Will continue Diamox for another 24 to 48 hours. 4. Nonoliguric acute kidney injury. Etiology is secondary to hemodynamics, diuretics. Continue to monitor. 5. Mineral bone disorder, monitor calcium and phosphorus levels. 6. Status post hip fracture, status post arthroplasty. 7. Breast cancer with metastasis. Continue to monitor. 8. Left upper extremity edema. Etiology may be lymphedema secondary to breast cancer. Continue to monitor. Unclear if diuretics. Will mobilize fluid. 7. Recent history of left radial ulnar fracture. Continue to monitor. 8. Chronic pain syndrome. 9. Status post open bronchitis. Dictated By: ANDRÉS YO/KEANU Conf#: [id number] DID#: [id number]
[2018-12-25 08:32] VITALS: BP 114/62; PULSE 83; RESP 18
[2018-12-25] MEDS: ESCITALOPRAM 10 MG TAB PO SCH (08:49)
[2018-12-25] MEDS: oxyCODONE (CR) 20 MG TAB [oxyCONTIN] PO SCH (08:50)
[2018-12-25] MEDS: POTASSIUM CHLORIDE (SR) 20 MEQ TAB PO SCH (08:50)
[2018-12-25] MEDS: DOCUSATE SODIUM 100 MG CAP PO SCH (08:50)
[2018-12-25] MEDS: FLUCONAZOLE 100 MG TAB PO SCH (08:50)
[2018-12-25] MEDS: SPIRONOLACTONE 50 MG TAB PO SCH (08:50)
[2018-12-25] MEDS: ANASTROZOLE 1 MG TAB PO SCH (08:53)
[2018-12-25] MEDS: LORATADINE 10 MG TAB PO SCH (08:56)
[2018-12-25] MEDS: POLYETHYLENE GLYCOL 17 GM PACKET PO SCH (08:56)
[2018-12-25] MEDS: DICLOFENAC SODIUM 1% GEL 100 GM TUBE TP SCH ×3 (08:56→18:46)
[2018-12-25] MEDS: (Nursing Note) XX SCH (09:00)
[2018-12-25] MEDS ORDERED: ACETAZOLAMIDE 500 MG INJ IV ONE (09:00)
--- NOTE | 2018-12-25 11:08 | CONS ---
Assessment/Plan Assessment/Plan Hospital Course (Demo Recall) IMPRESSION: 1. Congestive heart failure exacerbation-diastolic, acute on chronic by most recent echo.-now s/p echo this admit with EF 60/small effusion 2. Abnormal electrocardiogram with low voltage, rule out pericardial effusion. 3. Hypertension-currently borderline hypotension 4. Metastatic breast carcinoma. 5. History of pathologic fractures of the leg, status post open reduction and internal fixation. 6. Anemia. 7. Increased BNP consistent with patient's congestive heart failure. 8. Pericardial effusion-small by echo 9. Edema-LE venous RAMÍREZ neg for DVT 10. Hypokalemia 11.Wrist fracture acute by films 11/20-conservative management at this time 12. Pleural effusion s/p recurrent thoracentesis last 12/04 14. dizziness-neuro following 15. Renal insufficiency-mild today Recc: -On med-surg -Continued on metolazone BID and aldactone with overall reasonable volume status and resolution of much of LLE edema and now holding of bumex given renal insufficiency and given a dose diamox for contraction alkalosis -continue low dose coreg as tolerated only -continue conservative management of wrist fracture -? need for pleur-x catheter Consultation Date/Type/Reason Admit Date/Time October 21, 2018 at 17:39 Initial Consult Date 10/21/18 Type of Consult Cardiology Reason for Consultation CHF Requesting Provider: TOMMIE JAMES Date/Time of Note DATE: 12/25/18 TIME: 11:06 Exam/Review of Systems Vital Signs Vitals Vital Signs Date Temp Pulse Resp B/P (MAP) Pulse Ox O2 O2 Flow FiO2 Time Delivery Rate 12/25/18 98.5 83 18 114/62 92 Room Air 08:32 (79) 12/23/18 2.0 09:01 Intake and Output 12/24/18 12/24/18 12/25/18 1515:00 23:00 07:00 IntakeIntake Total 480 ml 560 ml 200 ml BalanceBalance 480 ml 560 ml 200 ml Exam Exam Review of Systems: CONSTITUTIONAL: No fevers, chills. PULMONARY: No sob CARDIOVASCULAR: No chest pain/palpitations GASTROINTESTINAL: No nausea/vomiting. GENITOURINARY: No hematuria/dysuria. MUSCULOSKELETAL: No myagias/arthalgias. PSYCHIATRIC: The patient denies depression. NEUROLOGIC: No weakness Constitutional: alert Psych: no complaints Head: normocephalic ENMT: mucosa pink and moist Neck: supple, jvd (9 cm water) Respiratory: diminished breath sounds (at bases/B) Cardiovascular: regular rate and rhythm Gastrointestinal: soft, non-tender Musculoskeletal: muscle weakness (mild generalized) Extremities: edema (Improved LE edema, ongoing LUE edema) Labs Result Diagram: 12/25/18 0436 12/25/18 0436 Results 24hrs Laboratory Tests Test 12/25/18 04:36 White Blood Count 5.8 Red Blood Count 3.30 L Hemoglobin 10.9 L Hematocrit 33.2 L Mean Corpuscular Volume 100.6 Mean Corpuscular Hemoglobin 33.0 Mean Corpuscular Hemoglobin Concent 32.8 Red Cell Distribution Width 13.2 Platelet Count 201 Mean Platelet Volume 9.3 Immature Granulocytes % 0.200 Neutrophils % 44.0 Lymphocytes % 35.4 Monocytes % 15.3 H Eosinophils % 4.1 Basophils % 1.0 Nucleated Red Blood Cells % 0.0 Immature Granulocytes # 0.010 Neutrophils # 2.6 Lymphocytes # 2.1 Monocytes # 0.9 Eosinophils # 0.2 Basophils # 0.1 Nucleated Red Blood Cells # 0.0 Sodium Level 138 Potassium Level 3.8 Chloride Level 100 Carbon Dioxide Level 30 Anion Gap 8 Blood Urea Nitrogen 32 H Creatinine 1.05 H Est Glomerular Filtrat Rate mL/min 54 L Glucose Level 126 Calcium Level 8.7 Phosphorus Level 5.9 H Magnesium Level 2.0 Medications Medications Current Medications Morphine Sulfate (morphine) 2 mg Q4H PRN IV SEVERE PAIN LEVEL 7-10 Last administered on 12/22/18at 23:51; Admin Dose 2 MG; Start 10/22/18 at 01:30 Metolazone (Zaroxolyn) 2.5 mg BID@0330,5340 PO Last administered on 12/25/18at 05:56; Admin Dose 2.5 MG; Start 11/01/18 at 05:30 Enoxaparin Sodium (Lovenox) 40 mg DAILY SC Last administered on 11/23/18at 09:02; Admin Dose 40 MG; Start 11/02/18 at 09:00; Status Hold Ibuprofen (Motrin) 400 mg Q6H PRN PO MILD PAIN(1-3) OR TEMP>38C Last admin istered on 12/09/18at 02:07; Admin Dose 400 MG; Start 11/07/18 at 12:20 Potassium Chloride (Klor-Con 20) 20 meq BID PO Last administered on 12/25/18 08:50; Admin Dose 20 MEQ; Start 11/11/18 at 09:00 Escitalopram Oxalate (Lexapro) 10 mg DAILY PO Last administered on 12/25/18 08:49; Admin Dose 10 MG; Start 11/24/18 at 19:00 Anastrozole (Arimidex) 1 mg DAILY PO Last administered on 12/25/18 08:53; Admin Dose 1 MG; Start 11/25/18 at 10:30 Carvedilol (Coreg) 3.125 mg BID PO Last administered on 12/25/18 08:55; Admin Dose 3.125 MG; Start 11/25/18 at 10:30 Docusate Sodium (Colace) 100 mg BID PO Last administered on 12/25/18 08:50; Admin Dose 100 MG; Start 11/25/18 at 10:30 Loratadine (Claritin) 10 mg DAILY PO Last administered on 12/25/18 08:56; Admin Dose 10 MG; Start 11/25/18 at 10:30 Pantoprazole (Protonix Tab) 40 mg AC BREAKFAST PO Last administered on 12/25/18 05:55; Admin Dose 40 MG; Start 11/25/18 at 10:30 Polyethylene Glycol (Miralax) 17 gm DAILY PO Last administered on 12/25/18 08:56; Admin Dose 17 GM; Start 11/25/18 at 10:30 Spironolactone (Aldactone) 50 mg DAILY PO Last administered on 12/25/18 08:50; Admin Dose 50 MG; Start 11/25/18 at 10:30 Diclofenac Sodium (Voltaren 1% Gel) 2 gm QID TP Last administered on 12/25/18 08:56; Admin Dose 2 GM; Start 11/27/18 at 22:00 Oxycodone HCl (Oxycontin) 20 mg BID PO Last administered on 12/25/18 08:50; Admin Dose 20 MG; Start 12/01/18 at 09:00 Budesonide (Pulmicort (Neb)) 0.5 mg BID RESP THERAPY PRN HHN WHEEZING; Start 12/01/18 at 13:00 Zolpidem Tartrate (Ambien) 10 mg HS PRN PO INSOMNIA Last administered on 12/17/18at 00:40; Admin Dose 5 MG; Start 12/02/18 at 20:00 Ergocalciferol (Drisdol) 50,000 unit Q7D PO Last administered on 12/24/18at 17:13; Admin Dose 50,000 UNIT; Start 12/03/18 at 16:00 Bumetanide (Bumex) 0.5 mg BID@0800,1400 PO Last administered on 12/23/18at 14:43; Admin Dose 0.5 MG; Start 12/19/18 at 15:14; Status Hold Miscellaneous Information 1 ea BID XX ; Start 12/20/18 at 18:00 Fluconazole (Diflucan) 100 mg DAILY PO Last administered on 12/25/18at 08:50; Admin Dose 100 MG; Start 12/23/18 at 09:00; Stop 12/31/18 at 11:00 Phenol (Cepastat Lozenge) 1 lozenge Q1H PRN MT SORE THROAT Last administered on 12/25/18at 06:02; Admin Dose 5 LOZENGE; Start 12/25/18 at 00:00 KAMILA TERESA Dec 25, 2018 11:08
[2018-12-25 13:31] VITALS: BP 127/77; PULSE 87; RESP 18
--- NOTE | 2018-12-25 14:33 | CONS ---
Assessment/Plan Assessment/Plan Hospital Course (Demo Recall) Alert, feels good, no fevers Antimicrobials: none Indwelling: R chest Port-A-Cath 05/29/18 Physical examination: Obese well-developed middle-aged [place]an-speaking woman who is alert in no distress. Head atraumatic normocephalic sclera nonicteric vehicle mucosa pink. Neck is supple chest rise symmetrical breath sounds diminished bases. Heart: S1-S2. Abdomen soft bowel sounds present extremities without cyanosis, left upper extremity with edema Assessment: 1. Bilateral mastoiditis==> treated 2. Metastatic breast cancer 3. Status post R hip arthroplasty due to lytic fracture 4. Status post recent fall with left wrist fracture that is being treated conservatively Plan: Stable, off antibiotics Consultation Date/Type/Reason Admit Date/Time October 21, 2018 at 17:39 Initial Consult Date 11/21/18 Type of Consult id Requesting Provider: TOMMIE JAMES Date/Time of Note DATE: 12/25/18 TIME: 14:33 Exam/Review of Systems Exam Vitals Vital Signs Date Temp Pulse Resp B/P (MAP) Pulse Ox O2 O2 Flow FiO2 Time Delivery Rate 12/25/18 98.6 87 18 127/77 94 Room Air 13:31 (94) 12/23/18 2.0 09:01 Intake and Output 12/24/18 12/24/18 12/25/18 1515:00 23:00 07:00 IntakeIntake Total 480 ml 560 ml 200 ml BalanceBalance 480 ml 560 ml 200 ml Results Result Diagram: 12/25/18 0436 12/25/18 0436 Results 24hrs Laboratory Tests Test 12/25/18 04:36 White Blood Count 5.8 Red Blood Count 3.30 L Hemoglobin 10.9 L Hematocrit 33.2 L Mean Corpuscular Volume 100.6 Mean Corpuscular Hemoglobin 33.0 Mean Corpuscular Hemoglobin Concent 32.8 Red Cell Distribution Width 13.2 Platelet Count 201 Mean Platelet Volume 9.3 Immature Granulocytes % 0.200 Neutrophils % 44.0 Lymphocytes % 35.4 Monocytes % 15.3 H Eosinophils % 4.1 Basophils % 1.0 Nucleated Red Blood Cells % 0.0 Immature Granulocytes # 0.010 Neutrophils # 2.6 Lymphocytes # 2.1 Monocytes # 0.9 Eosinophils # 0.2 Basophils # 0.1 Nucleated Red Blood Cells # 0.0 Sodium Level 138 Potassium Level 3.8 Chloride Level 100 Carbon Dioxide Level 30 Anion Gap 8 Blood Urea Nitrogen 32 H Creatinine 1.05 H Est Glomerular Filtrat Rate mL/min 54 L Glucose Level 126 Calcium Level 8.7 Phosphorus Level 5.9 H Magnesium Level 2.0 Medications Medication Current Medications Morphine Sulfate (morphine) 2 mg Q4H PRN IV SEVERE PAIN LEVEL 7-10 Last administered on 12/22/18 23:51; Admin Dose 2 MG; Start 10/22/18 at 01:30 Metolazone (Zaroxolyn) 2.5 mg BID@0530,1730 PO Last administered on 12/25/18 05:56; Admin Dose 2.5 MG; Start 11/01/18 at 05:30 Enoxaparin Sodium (Lovenox) 40 mg DAILY SC Last administered on 11/23/18 09:02; Admin Dose 40 MG; Start 11/02/18 at 09:00; Status Hold Ibuprofen (Motrin) 400 mg Q6H PRN PO MILD PAIN(1-3) OR TEMP>38C Last administered on 12/09/18 02:07; Admin Dose 400 MG; Start 11/07/18 at 12:20 Potassium Chloride (Klor-Con 20) 20 meq BID PO Last administered on 12/25/18 08:50; Admin Dose 20 MEQ; Start 11/11/18 at 09:00 Escitalopram Oxalate (Lexapro) 10 mg DAILY PO Last administered on 12/25/18at 0 8:49; Admin Dose 10 MG; Start 11/24/18 at 19:00 Anastrozole (Arimidex) 1 mg DAILY PO Last administered on 12/25/18 08:53; Admin Dose 1 MG; Start 11/25/18 at 10:30 Carvedilol (Coreg) 3.125 mg BID PO Last administered on 12/25/18 08:55; Admin Dose 3.125 MG; Start 11/25/18 at 10:30 Docusate Sodium (Colace) 100 mg BID PO Last administered on 12/25/18 08:50; Admin Dose 100 MG; Start 11/25/18 at 10:30 Loratadine (Claritin) 10 mg DAILY PO Last administered on 12/25/18 08:56; Admin Dose 10 MG; Start 11/25/18 at 10:30 Pantoprazole (Protonix Tab) 40 mg AC BREAKFAST PO Last administered on 05:55; Admin Dose 40 MG; Start 11/25/18 at 10:30 Polyethylene Glycol (Miralax) 17 gm DAILY PO Last administered on 12/25/18 08:56; Admin Dose 17 GM; Start 11/25/18 at 10:30 Spironolactone (Aldactone) 50 mg DAILY PO Last administered on 12/25/18 08:50; Admin Dose 50 MG; Start 11/25/18 at 10:30 Diclofenac Sodium (Voltaren 1% Gel) 2 gm QID TP Last administered on 12/25/18 08:56; Admin Dose 2 GM; Start 11/27/18 at 22:00 Oxycodone HCl (Oxycontin) 20 mg BID PO Last administered on 12/25/18 08:50; Admin Dose 20 MG; Start 12/01/18 at 09:00 Budesonide (Pulmicort (Neb)) 0.5 mg BID RESP THERAPY PRN HHN WHEEZING; Start 12/01/18 at 13:00 Zolpidem Tartrate (Ambien) 10 mg HS PRN PO INSOMNIA Last administered on 12/17/18 00:40; Admin Dose 5 MG; Start 12/02/18 at 20:00 Ergocalciferol (Drisdol) 50,000 unit Q7D PO Last administered on 12/24/18 17:13; Admin Dose 50,000 UNIT; Start 12/03/18 at 16:00 Bumetanide (Bumex) 0.5 mg BID@0800,1400 PO Last administered on 12/23/18at 14:43; Admin Dose 0.5 MG; Start 12/19/18 at 15:14; Status Hold Miscellaneous Information 1 ea BID XX ; Start 12/20/18 at 18:00 Fluconazole (Diflucan) 100 mg DAILY PO Last administered on 12/25/18 08:50; Admin Dose 100 MG; Start 12/23/18 at 09:00; Stop 12/31/18 at 11:00 Phenol (Cepastat Lozenge) 1 lozenge Q1H PRN MT SORE THROAT Last administered on 12/25/18 06:02; Admin Dose 5 LOZENGE; Start 12/25/18 at 00:00 YUAN ROMERO NP Dec 25, 2018 14:33
[2018-12-25] MEDS ORDERED: HEPARIN (100 UNITS/ML) 5 ML SYG CATHETER ONE (18:00)
--- NOTE | 2018-12-25 22:21 | CONS ---
Assessment/Plan Assessment/Plan Hospital Course (Demo Recall) METASTATIC BREAST CANCER WITH PRIMARY ADENOCARCINOMA IN the left breast. MULTIPLE BONY METS, PULMONARY METS, LIVER METS CHEMO ON HOLD PT HAS A VERY GOOD RESPONSE TO CHEMO AND AI CONT AI FOR NOW CT ABD FOR RESTAGING 08.27.18, 12.04.18 - noted , stable POST aredia Leukopenia- post chemo, FLUCTUATING post NEUPOGEN monitor closely post Neutropenia with occasional fever and chills. - resolved Anemia chronic disease SOB PLEURAL EFFUSIONS, NEG CYTOLOGY POST RT SIDED THORACENTESIS PERFORMED BY DR CORTES. 700ML FLUID EXTRACTED . Fluid overload diuretic cardiology F-UP Severe pain in the interscapular and lumbar sacral area most probably metastatic lesion possible femoral fracture. pathologic fracture of T9 with 60% of loss of height. Bony pain with multiple bony mets post XRT d/w dr Ocampo HYPOKALEMIA- REPLACED Obesity. Weight loss 60 pounds during the last 2 years COUGH, Upper respiratory infection pharyngitis with dry cough. POST ATB PMS. Myopia. Anxiety disorder. Claustrophobia. Posttraumatic stress disorder. Pain in the left forearm with a history of fracture of ulna and radius. Tachycardia Hypoxemia at night marginal improved after 2 L of nasal cannula oxygen. Deconditioning Pain syndrome. Today the most painful zone is in the right hip area. X-ray did not show any fractures. Hyponatremia- resolved Hypoalbuminemia Right sided cp after catheter insertion and correction less discomfort. Decreased edema both lower extremities with hypotension-improving Swelling of the left forearm-persist. Consultation Date/Type/Reason Admit Date/Time October 21, 2018 at 17:39 Initial Consult Date 10/21/18 Type of Consult [facility] Requesting Provider: TOMMIE JAMES Date/Time of Note DATE: 12/25/18 TIME: 22:21 Exam/Review of Systems Exam Vitals Vital Signs Date Temp Pulse Resp B/P (MAP) Pulse Ox O2 O2 Flow FiO2 Time Delivery Rate 12/25/18 98.6 87 18 127/77 94 Room Air 13:31 (94) 12/23/18 2.0 09:01 Intake and Output 12/24/18 12/24/18 12/25/18 1515:00 23:00 07:00 IntakeIntake Total 480 ml 560 ml 200 ml BalanceBalance 480 ml 560 ml 200 ml Results Result Diagram: 12/25/18 0436 12/25/18 0436 Results 24hrs Laboratory Tests Test 12/25/18 04:36 White Blood Count 5.8 Red Blood Count 3.30 L Hemoglobin 10.9 L Hematocrit 33.2 L Mean Corpuscular Volume 100.6 Mean Corpuscular Hemoglobin 33.0 Mean Corpuscular Hemoglobin Concent 32.8 Red Cell Distribution Width 13.2 Platelet Count 201 Mean Platelet Volume 9.3 Immature Granulocytes % 0.200 Neutrophils % 44.0 Lymphocytes % 35.4 Monocytes % 15.3 H Eosinophils % 4.1 Basophils % 1.0 Nucleated Red Blood Cells % 0.0 Immature Granulocytes # 0.010 Neutrophils # 2.6 Lymphocytes # 2.1 Monocytes # 0.9 Eosinophils # 0.2 Basophils # 0.1 Nucleated Red Blood Cells # 0.0 Sodium Level 138 Potassium Level 3.8 Chloride Level 100 Carbon Dioxide Level 30 Anion Gap 8 Blood Urea Nitrogen 32 H Creatinine 1.05 H Est Glomerular Filtrat Rate mL/min 54 L Glucose Level 126 Calcium Level 8.7 Phosphorus Level 5.9 H Magnesium Level 2.0 DES DUNAWAY MD Dec 25, 2018 22:21
== END 2018-12-25 19:26 | DRG 291 ==
LOC: E/R 14:47 → TEL 17:39 → MS1 10-25 16:35 → TEL 10-25 16:38 → MS1 10-25 16:45
PROVIDERS: ADMIT Internal Medicine; ATTEND Internal Medicine
PROC: 0W9B3ZZ Drainage of Left Pleural Cavity, Percutaneous Approach (ICD-10-PCS; 2018-10-22)
PROC: 0W9B3ZZ Drainage of Left Pleural Cavity, Percutaneous Approach (ICD-10-PCS; 2018-10-26)
PROC: 0W9B3ZX Drainage of Left Pleural Cavity, Percutaneous Approach, Diagnostic (ICD-10-PCS; principal; 2018-10-31)
PROC: 0W9B3ZX Drainage of Left Pleural Cavity, Percutaneous Approach, Diagnostic (ICD-10-PCS; 2018-11-07)
PROC: 0W9B3ZX Drainage of Left Pleural Cavity, Percutaneous Approach, Diagnostic (ICD-10-PCS; 2018-11-24)
PROC: 0W9B3ZX Drainage of Left Pleural Cavity, Percutaneous Approach, Diagnostic (ICD-10-PCS; 2018-11-25)
DX: I11.0 Hypertensive heart disease with heart failure (principal); J96.01 Acute respiratory failure with hypoxia; S52.612A Displaced fracture of left ulna styloid process, initial encounter for closed fracture; S52.572A Other intraarticular fracture of lower end of left radius, initial encounter for closed fracture; C78.7 Secondary malignant neoplasm of liver and intrahepatic bile duct; C78.00 Secondary malignant neoplasm of unspecified lung; C79.51 Secondary malignant neoplasm of bone; L03.114 Cellulitis of left upper limb; N17.9 Acute kidney failure, unspecified; E87.3 Alkalosis; Z68.41 Body mass index [BMI] 40.0-44.9, adult; I31.3 Pericardial effusion (noninflammatory); M84.58XA Pathological fracture in neoplastic disease, other specified site, initial encounter for fracture; C50.912 Malignant neoplasm of unspecified site of left female breast; I50.33 Acute on chronic diastolic (congestive) heart failure; R42 Dizziness and giddiness; H70.93 Unspecified mastoiditis, bilateral; F41.9 Anxiety disorder, unspecified; F43.10 Post-traumatic stress disorder, unspecified; G89.4 Chronic pain syndrome; E87.6 Hypokalemia; D72.819 Decreased white blood cell count, unspecified; J40 Bronchitis, not specified as acute or chronic; E88.09 Other disorders of plasma-protein metabolism, not elsewhere classified; E66.9 Obesity, unspecified; W01.0XXA Fall on same level from slipping, tripping and stumbling without subsequent striking against object, initial encounter; D63.8 Anemia in other chronic diseases classified elsewhere; J02.9 Acute pharyngitis, unspecified
CPT/HCPCS: 36415; 70450; 71045; 71046; 71260; 71275; 72170; 73090; 73100; 73510; 73562; 74177; 76604; 76942; 80048; 80053; 80076; 82042; 82150; 82306; 82310; 82330; 82378; 83540; 83605; 83615; 83735; 83880; 83970; 83986; 84100; 84132; 84155; 84484; 85025; 85048; 85610; 85730; 86300; 86304; 87045; 87070; 87081; 87086; 87102; 87116; 88104; 88305; 88341; 88342; 89051; 93005; 93308; 93970; 94640; 94664; 96374; 97110; 97116; 97162; 97530; J2430; J0295; J0456; J1120; J1642; J1650; J1940; J2270; J2405; J7040; J7050; P9047; Q9967